=== PATIENT | female | born 1965 | race Caucasian/White ===

== ENCOUNTER → 2016-08-18 | Outpatient (CLI) | payer OTHER ==
[~2016-08-18] MED LIST: AMIT10TA6 PO; AMLO10TA2; ARIP2TAB10 PO; CIPR-225 PO; CYCL10TA9 PO; DCS100C PO; DULO60CA6 PO; ERYT3.5O8 OS; HCT25T PO; HYDR-2890 PO; HYDR-3454 PO; HYDR118S10 PO; HYDR1CAP2 PO; LISI1TAB10 PO; LOSA100T16 PO; MELO-198 PO; METR500T PO; MIRT15TA6 PO; NAPR-243 PO; NF-ESOM40C PO; OMEP-10 PO; OMEP20CA12; ONDA4TAB8 PO; PREG50CA2 PO; PRM25T PO; QUIN10TA PO; RISP1TAB19 PO; SCR1T1 PO; SULF-222 PO; SULF1TAB38 PO; TRAM50TA2 PO; TRAM5POW3 MC; TRM50T PO; flexeril PO
--- OUTSIDE RECORDS SUMMARY | 2016-08-18 11:11 | XMS REPORT | Continuity of Care Document ---
Author Author [facility] Address Unknown Phone Unavailable Allergies Active Description Code Type Severity Reaction Onset Reported/Identified Relationship to Patient Clinical Status Yes Penicillins [id number] Drug Allergy Mild hives 01/28/2009 Yes Penicillins Drug Allergy N/A N/A 03/31/2010 Yes Penicillins Drug Allergy 03/31/2010 Yes antihistamine Drug Allergy 04/22/2011 Yes Depakote 500 mg tablet,delayed release (DR/EC) Drug Allergy N/A N/A 06/26/2012 Yes Depakote 500 mg tablet,delayed release (DR/EC) Drug Allergy 06/26/2012 Medications Problems Date Dx Coded Attending Type Code Diagnosis Diagnosed By 03/31/2010 SURESH ANDRADE APRN S 461.0 Acute Maxillary Sinusitis 03/31/2010 ROWENA ANDRADE APRNA S 461.0 Acute Maxillary Sinusitis 03/31/2010 CATIE ROGERS DO 461.0 Acute Maxillary Sinusitis 03/31/2010 SURESH ANDRADE APRN S 461.0 Acute Maxillary Sinusitis 03/31/2010 461.0 Acute Maxillary Sinusitis 03/31/2010 461.0 Acute Maxillary Sinusitis 03/31/2010 461.0 Acute Maxillary Sinusitis 03/31/2010 461.0 Acute Maxillary Sinusitis 03/31/2010 JOSE ELIAS CORNELIUS APRN 461.0 Acute Maxillary Sinusitis 03/31/2010 MAINOR CONTRERAS APRN 461.0 Acute Maxillary Sinusitis 03/31/2010 SURESH ANDRADE APRN S 461.0 Acute Maxillary Sinusitis 03/31/2010 ROWENA ANDRADE APRNA S 461.0 Acute Maxillary Sinusitis 03/31/2010 ROWENA ANDRADE APRNA S 461.0 Acute Maxillary Sinusitis 03/31/2010 ROWENA ANDRADE APRNA S 461.0 Acute Maxillary Sinusitis 03/31/2010 LUPE INTERDISCIPLINARY PROFESSOR, SURESH S 461.0 Acute Maxillary Sinusitis 03/31/2010 461.0 Acute Maxillary Sinusitis 03/31/2010 OG INTERDISCIPLINARY PROFESSOR, MEGHA 461.0 Acute Maxillary Sinusitis 03/31/2010 LUPE INTERDISCIPLINARY PROFESSOR, SURESH S 461.0 Acute Maxillary Sinusitis 03/31/2010 LUPE INTERDISCIPLINARY PROFESSOR, SURESH S 461.0 Acute Maxillary Sinusitis 03/31/2010 LUPE INTERDISCIPLINARY PROFESSOR, SURESH S 461.0 Acute Maxillary Sinusitis 03/31/2010 [facility], SYBIL R 461.0 Acute Maxillary Sinusitis 03/31/2010 LUPE INTERDISCIPLINARY PROFESSOR, SURESH S 461.0 Acute Maxillary Sinusitis 03/31/2010 LUPE INTERDISCIPLINARY PROFESSOR, SURESH S 461.0 Acute Maxillary Sinusitis 03/31/2010 MAURICE INTERDISCIPLINARY PROFESSOR, JAILENE R 461.0 Acute Maxillary Sinusitis 03/31/2010 PANCHO INTERDISCIPLINARY PROFESSOR, AIRAM A 461.0 Acute Maxillary Sinusitis 03/31/2010 [facility], SYBIL R 461.0 Acute Maxillary [facility]2010 [facility] 461.0 Acute Maxillary Sinusitis 03/31/2010 PANCHO INTERDISCIPLINARY PROFESSOR, AIRAM A 461.0 Acute Maxillary Sinusitis 04/01/2011 LUPE INTERDISCIPLINARY PROFESSOR, SURESH S 401.1 BENIGN ESSENTIAL HYPERTENSION 04/01/2011 LUPE INTERDISCIPLINARY PROFESSOR, SURESH S 455.6 HEMORRHOIDS NOS 04/01/2011 LUPE INTERDISCIPLINARY PROFESSOR, SURESH S 553.9 HERNIA UNSPECIFIED SITE 04/01/2011 LUPE INTERDISCIPLINARY PROFESSOR, SURESH S 564.1 IRRITABLE BOWEL SYNDROME 04/01/2011 LUPE INTERDISCIPLINARY PROFESSOR, SURESH S V04.81 FLU DX (3 YRS AND ABOVE, IM) 04/01/2011 LUPE INTERDISCIPLINARY PROFESSOR, SURESH S 401.1 BENIGN ESSENTIAL HYPERTENSION 04/01/2011 LUPE INTERDISCIPLINARY PROFESSOR, SURESH S 455.6 HEMORRHOIDS NOS 04/01/2011 LUPE INTERDISCIPLINARY PROFESSOR, SURESH S 553.9 HERNIA UNSPECIFIED SITE 04/01/2011 LUPE INTERDISCIPLINARY PROFESSOR, SURESH S 564.1 IRRITABLE BOWEL SYNDROME 04/01/2011 SURESH ANDRADE APRN S V04.81 FLU DX (3 YRS AND ABOVE, IM) 04/01/2011 SONIA ROGERS DOA K 401.1 BENIGN ESSENTIAL HYPERTENSION 04/01/2011 SONIA ROGERS DOA K 455.6 HEMORRHOIDS NOS 04/01/2011 SUE FERNANDO, CATIE K 553.9 HERNIA UNSPECIFIED SITE 04/01/2011 CATIE ROGERS DO K 564.1 IRRITABLE BOWEL SYNDROME 04/01/2011 CATIE ROGERS DO K V04.81 FLU DX (3 YRS AND ABOVE, IM) 04/01/2011 SURESH ANDRADE APRN S 401.1 BENIGN ESSENTIAL HYPERTENSION 04/01/2011 SURESH ANDRADE APRN S 455.6 HEMORRHOIDS NOS 04/01/2011 SURESH ANDRADE APRN S 553.9 HERNIA UNSPECIFIED SITE 04/01/2011 SURESH ANDRADE APRN S 564.1 IRRITABLE BOWEL SYNDROME 04/01/2011 SURESH ANDRADE APRN S V04.81 FLU DX (3 YRS AND ABOVE, IM) 04/01/2011 401.1 BENIGN ESSENTIAL HYPERTENSION 04/01/2011 455.6 HEMORRHOIDS NOS 04/01/2011 553.9 HERNIA UNSPECIFIED SITE 04/01/2011 564.1 IRRITABLE BOWEL SYNDROME 04/01/2011 V04.81 FLU DX (3 YRS AND ABOVE, IM) 04/01/2011 401.1 BENIGN ESSENTIAL HYPERTENSION 04/01/2011 455.6 HEMORRHOIDS NOS 04/01/2011 553.9 HERNIA UNSPECIFIED SITE 04/01/2011 564.1 IRRITABLE BOWEL SYNDROME 04/01/2011 V04.81 FLU DX (3 YRS AND ABOVE, IM) 04/01/2011 401.1 BENIGN ESSENTIAL HYPERTENSION 04/01/2011 455.6 HEMORRHOIDS NOS 04/01/2011 553.9 HERNIA UNSPECIFIED SITE 04/01/2011 564.1 IRRITABLE BOWEL SYNDROME 04/01/2011 V04.81 FLU DX (3 YRS AND ABOVE, IM) 04/01/2011 401.1 BENIGN ESSENTIAL HYPERTENSION 04/01/2011 455.6 HEMORRHOIDS NOS 04/01/2011 553.9 HERNIA UNSPECIFIED SITE 04/01/2011 564.1 IRRITABLE BOWEL SYNDROME 04/01/2011 V04.81 FLU DX (3 YRS AND ABOVE, IM) 04/01/2011 JOSE ELIAS CORNELIUS APRN 401.1 BENIGN ESSENTIAL HYPERTENSION 04/01/2011 JOSE ELIAS CORNELIUS APRN 455.6 HEMORRHOIDS NOS 04/01/2011 JOSE ELIAS CORNELIUS APRN 553.9 HERNIA UNSPECIFIED SITE 04/01/2011 JOSE ELIAS CORNELIUS APRN 564.1 IRRITABLE BOWEL SYNDROME 04/01/2011 JOSE ELIAS CORNELIUS APRN V04.81 FLU DX (3 YRS AND ABOVE, IM) 04/01/2011 BEN MAINOR BROWN T 401.1 BENIGN ESSENTIAL HYPERTENSION 04/01/2011 BEN WOLFMAINOR Hollingsworth T 455.6 HEMORRHOIDS NOS 04/01/2011 BEN INTERDISCIPLINARY PROFESSORMAINOR Hollingsworth T 553.9 HERNIA UNSPECIFIED SITE 04/01/2011 BEN INTERDISCIPLINARY PROFESSORMAINOR Hollingsworth T 564.1 IRRITABLE BOWEL SYNDROME 04/01/2011 MAINOR CONTRERAS APRN T V04.81 FLU DX (3 YRS AND ABOVE, IM) 04/01/2011 MATT ANDRADE APRNNDA S 401.1 BENIGN ESSENTIAL HYPERTENSION 04/01/2011 LUPE BROWN, SURESH S 455.6 HEMORRHOIDS NOS 04/01/2011 LUPE BROWN, SURESH S 553.9 HERNIA UNSPECIFIED SITE 04/01/2011 LUPE BROWN, SURESH S 564.1 IRRITABLE BOWEL SYNDROME 04/01/2011 LUPE BROWN, SURESH S V04.81 FLU DX (3 YRS AND ABOVE, IM) 04/01/2011 LUPE BROWN SURESH S 401.1 BENIGN ESSENTIAL HYPERTENSION 04/01/2011 LUPE WOLFN, SURESH S 455.6 HEMORRHOIDS NOS 04/01/2011 LUPE INTERDISCIPLINARY PROFESSOR, SURESH S 553.9 HERNIA UNSPECIFIED SITE 04/01/2011 LUPE INTERDISCIPLINARY PROFESSOR, SURESH S 564.1 IRRITABLE BOWEL SYNDROME 04/01/2011 LUPE INTERDISCIPLINARY PROFESSOR, SURESH S V04.81 FLU DX (3 YRS AND ABOVE, IM) 04/01/2011 LUPE INTERDISCIPLINARY PROFESSOR, SURESH S 401.1 BENIGN ESSENTIAL HYPERTENSION 04/01/2011 LUPE BROWN, SURESH S 455.6 HEMORRHOIDS NOS 04/01/2011 LUPE BROWN, SURESH S 553.9 HERNIA UNSPECIFIED SITE 04/01/2011 LUPEMARY WOLFDarrick SURESH S 564.1 IRRITABLE BOWEL SYNDROME 04/01/2011 LUPEMARY WOLFDarrick SURESH S V04.81 FLU DX (3 YRS AND ABOVE, IM) 04/01/2011 LUPE INTERDISCIPLINARY PROFESSORMATT HollingsworthNDA S 401.1 BENIGN ESSENTIAL HYPERTENSION 04/01/2011 LUPE INTERDISCIPLINARY PROFESSORMATT HollingsworthNDA S 455.6 HEMORRHOIDS NOS 04/01/2011 LUPE INTERDISCIPLINARY PROFESSORMATT HollingsworthNDA S 553.9 HERNIA UNSPECIFIED SITE 04/01/2011 LUPE INTERDISCIPLINARY PROFESSORMATT HollingsworthNDA S 564.1 IRRITABLE BOWEL SYNDROME 04/01/2011 LUPE INTERDISCIPLINARY PROFESSORMATT HollingsworthNDA S V04.81 FLU DX (3 YRS AND ABOVE, IM) 04/01/2011 LUPE INTERDISCIPLINARY PROFESSORMATT HollingsworthNDA S 401.1 BENIGN ESSENTIAL HYPERTENSION 04/01/2011 MATT ANDRADE APRNNDA S 455.6 HEMORRHOIDS NOS 04/01/2011 LUPE INTERDISCIPLINARY PROFESSORMATT HollingsworthNDA S 553.9 HERNIA UNSPECIFIED SITE 04/01/2011 LUPE INTERDISCIPLINARY PROFESSORMATT HollingsworthNDA S 564.1 IRRITABLE BOWEL SYNDROME 04/01/2011 LUPE INTERDISCIPLINARY PROFESSORMATT HollingsworthNDA S V04.81 FLU DX (3 YRS AND ABOVE, IM) 04/01/2011 401.1 BENIGN ESSENTIAL HYPERTENSION 04/01/2011 455.6 HEMORRHOIDS NOS 04/01/2011 553.9 HERNIA UNSPECIFIED SITE 04/01/2011 564.1 IRRITABLE BOWEL SYNDROME 04/01/2011 V04.81 FLU DX (3 YRS AND ABOVE, IM) 04/01/2011 OG INTERDISCIPLINARY PROFESSOR, MEGHA 401.1 BENIGN ESSENTIAL HYPERTENSION 04/01/2011 OG INTERDISCIPLINARY PROFESSOR, MEGHA 455.6 HEMORRHOIDS NOS 04/01/2011 OG INTERDISCIPLINARY PROFESSOR, MEGHA 553.9 HERNIA UNSPECIFIED SITE 04/01/2011 OG INTERDISCIPLINARY PROFESSOR, MEGHA 564.1 IRRITABLE BOWEL SYNDROME 04/01/2011 OG INTERDISCIPLINARY PROFESSOR, MEGHA V04.81 FLU DX (3 YRS AND ABOVE, IM) 04/01/2011 MATT ANDRADE APRNNDA S 401.1 BENIGN ESSENTIAL HYPERTENSION 04/01/2011 LUPE INTERDISCIPLINARY PROFESSOR, SURESH S 455.6 HEMORRHOIDS NOS 04/01/2011 LUPE INTERDISCIPLINARY PROFESSOR, SURESH S 553.9 HERNIA UNSPECIFIED SITE 04/01/2011 LUPE INTERDISCIPLINARY PROFESSOR, SURESH S 564.1 IRRITABLE BOWEL SYNDROME 04/01/2011 LUPE INTERDISCIPLINARY PROFESSOR, SURESH S V04.81 FLU DX (3 YRS AND ABOVE, IM) 04/01/2011 MATT ANDRADE APRNNDA S 401.1 BENIGN ESSENTIAL HYPERTENSION 04/01/2011 LUPE INTERDISCIPLINARY PROFESSOR, SURESH S 455.6 HEMORRHOIDS NOS 04/01/2011 LUPE INTERDISCIPLINARY PROFESSOR, SURESH S 553.9 HERNIA UNSPECIFIED SITE 04/01/2011 LUPE INTERDISCIPLINARY PROFESSOR, SURESH S 564.1 IRRITABLE BOWEL SYNDROME 04/01/2011 LUPE INTERDISCIPLINARY PROFESSOR, SURESH S V04.81 FLU DX (3 YRS AND ABOVE, IM) 04/01/2011 LUPE BROWN, SURESH S 401.1 BENIGN ESSENTIAL HYPERTENSION 04/01/2011 LUPE BROWN, SURESH S 455.6 HEMORRHOIDS NOS 04/01/2011 LUPE WOLFN, SURESH S 553.9 HERNIA UNSPECIFIED SITE 04/01/2011 LUPE WOLFN, SURESH S 564.1 IRRITABLE BOWEL SYNDROME 04/01/2011 LUPE BROWN, SURESH S V04.81 FLU DX (3 YRS AND ABOVE, IM) 04/01/2011 [facility], SYBIL R 401.1 BENIGN ESSENTIAL HYPERTENSION 04/01/2011 FELICITAS LSCS, SYBIL R 455.6 HEMORRHOIDS NOS 04/01/2011 FELICITAS LSCS, SYBIL R 553.9 HERNIA UNSPECIFIED SITE 04/01/2011 FELICITAS LSCS, SYBIL R 564.1 IRRITABLE BOWEL SYNDROME 04/01/2011 FELICITAS LSCS, SYBIL R V04.81 FLU DX (3 YRS AND ABOVE, IM) 04/01/2011 LUPE WOLFN, SURESH S 401.1 BENIGN ESSENTIAL HYPERTENSION 04/01/2011 LUPE INTERDISCIPLINARY PROFESSOR, SURESH S 455.6 HEMORRHOIDS NOS 04/01/2011 LUPE INTERDISCIPLINARY PROFESSOR, SURESH S 553.9 HERNIA UNSPECIFIED SITE 04/01/2011 LUPE INTERDISCIPLINARY PROFESSOR, SURESH S 564.1 IRRITABLE BOWEL SYNDROME 04/01/2011 LUPE INTERDISCIPLINARY PROFESSOR, SURESH S V04.81 FLU DX (3 YRS AND ABOVE, IM) 04/01/2011 LUPE INTERDISCIPLINARY PROFESSOR, SURESH S 401.1 BENIGN ESSENTIAL HYPERTENSION 04/01/2011 LUPE INTERDISCIPLINARY PROFESSOR, SURESH S 455.6 HEMORRHOIDS NOS 04/01/2011 LUPE INTERDISCIPLINARY PROFESSOR, SURESH S 553.9 HERNIA UNSPECIFIED SITE 04/01/2011 LUPE INTERDISCIPLINARY PROFESSOR, SURESH S 564.1 IRRITABLE BOWEL SYNDROME 04/01/2011 LUPE INTERDISCIPLINARY PROFESSOR, SURESH S V04.81 FLU DX (3 YRS AND ABOVE, IM) 04/01/2011 MAURICE WOLFN JAILENE R 401.1 BENIGN ESSENTIAL HYPERTENSION 04/01/2011 MAURICE INTERDISCIPLINARY PROFESSOR, JAILENE R 455.6 HEMORRHOIDS NOS 04/01/2011 MAURICE WOLFN JAILENE R 553.9 HERNIA UNSPECIFIED SITE 04/01/2011 MAURICE WOLFN JAILENE R 564.1 IRRITABLE BOWEL SYNDROME 04/01/2011 MAURICE INTERDISCIPLINARY PROFESSOR JAILENE R V04.81 FLU DX (3 YRS AND ABOVE, IM) 04/01/2011 PANCHODYLAN WOLFN, AIRAM A 401.1 BENIGN ESSENTIAL HYPERTENSION 04/01/2011 PANCHO WOLFN, AIRAM A 455.6 HEMORRHOIDS NOS 04/01/2011 PANCHO WOLFN, AIRAM A 553.9 HERNIA UNSPECIFIED SITE 04/01/2011 PANCHO WOLFN, AIRAM A 564.1 IRRITABLE BOWEL SYNDROME 04/01/2011 PANCHO WOLFN, AIRAM A V04.81 FLU DX (3 YRS AND ABOVE, IM) 04/01/2011 FELICITAS LSCS, SYBIL R 401.1 BENIGN ESSENTIAL HYPERTENSION 04/01/2011 FELICITAS LSCS, SYBIL R 455.6 HEMORRHOIDS NOS 04/01/2011 EFLICITAS LSCS, SYBIL R 553.9 HERNIA UNSPECIFIED SITE 04/01/2011 FELICITAS LSCS, SYBIL R 564.1 IRRITABLE BOWEL SYNDROME 04/01/2011 FELICITAS LSCS, SYBIL R V04.81 FLU DX (3 YRS AND ABOVE, IM) 04/01/2011 FELICITAS LSCS, SYBIL R 401.1 BENIGN ESSENTIAL HYPERTENSION 04/01/2011 FELICITAS LSCS, SYBIL R 455.6 HEMORRHOIDS NOS 04/01/2011 FELICITAS LSCS, SYBIL R 553.9 HERNIA UNSPECIFIED SITE 04/01/2011 FELICITAS LSCS, SYBIL R 564.1 IRRITABLE BOWEL SYNDROME 04/01/2011 FELICITAS LSCS, SYBIL R V04.81 FLU DX (3 YRS AND ABOVE, IM) 04/01/2011 PANCHO INTERDISCIPLINARY PROFESSOR, AIRAM A 401.1 BENIGN ESSENTIAL HYPERTENSION 04/01/2011 PANCHO INTERDISCIPLINARY PROFESSOR, AIRAM A 455.6 HEMORRHOIDS NOS 04/01/2011 PANCHO INTERDISCIPLINARY PROFESSOR, AIRAM A 553.9 HERNIA UNSPECIFIED SITE 04/01/2011 PANCHO INTERDISCIPLINARY PROFESSOR, AIRAM A 564.1 IRRITABLE BOWEL SYNDROME 04/01/2011 PANCHO INTERDISCIPLINARY PROFESSOR, AIRAM A V04.81 FLU DX (3 YRS AND ABOVE, IM) 04/22/2011 ROWENA ANDRADE APRNA S 789.00 Abdominal Pain Unspecified Site 04/22/2011 ROWENA ANDRADE APRNA S 789.00 Abdominal Pain Unspecified Site 04/22/2011 CATIE ROGERS DO 789.00 Abdominal Pain Unspecified Site 04/22/2011 MATT ANDRADE APRNNDA S 789.00 Abdominal Pain Unspecified Site 04/22/2011 789.00 Abdominal Pain Unspecified Site 04/22/2011 789.00 Abdominal Pain Unspecified Site 04/22/2011 789.00 Abdominal Pain Unspecified Site 04/22/2011 789.00 Abdominal Pain Unspecified Site 04/22/2011 JOSE ELIAS CORNELIUS APRN 789.00 Abdominal Pain Unspecified Site 04/22/2011 MAINOR CONTRERAS APRN 789.00 Abdominal Pain Unspecified Site 04/22/2011 MATT ANDRADE APRNNDA S 789.00 Abdominal Pain Unspecified Site 04/22/2011 MATT ANDRADE APRNNDA S 789.00 Abdominal Pain Unspecified Site 04/22/2011 MATT ANDRADE APRNNDA S 789.00 Abdominal Pain Unspecified Site 04/22/2011 MATT ANDRADE APRNNDA S 789.00 Abdominal Pain Unspecified Site 04/22/2011 AMTT ANDRADE APRNNDA S 789.00 Abdominal Pain Unspecified Site 04/22/2011 789.00 Abdominal Pain Unspecified Site 04/22/2011 OG INTERDISCIPLINARY PROFESSOR MEGHA 789.00 Abdominal Pain Unspecified Site 04/22/2011 LUPE INTERDISCIPLINARY PROFESSOR, SURESH S 789.00 Abdominal Pain Unspecified Site 04/22/2011 LUPE INTERDISCIPLINARY PROFESSOR, SURESH S 789.00 Abdominal Pain Unspecified Site 04/22/2011 LUPE INTERDISCIPLINARY PROFESSOR, SURESH S 789.00 Abdominal Pain Unspecified Site 04/22/2011 [facility], SYBIL R 789.00 Abdominal Pain Unspecified Site 04/22/2011 LUPE INTERDISCIPLINARY PROFESSOR, SURESH S 789.00 Abdominal Pain Unspecified Site 04/22/2011 LUPE INTERDISCIPLINARY PROFESSOR, SURESH S 789.00 Abdominal Pain Unspecified Site 04/22/2011 MAURICE INTERDISCIPLINARY PROFESSOR JAILENE R 789.00 Abdominal Pain Unspecified Site 04/22/2011 PANCHO INTERDISCIPLINARY PROFESSOR, AIRAM A 789.00 Abdominal Pain Unspecified Site 04/22/2011 [facility], SYBIL R 789.00 Abdominal Pain Unspecified Site 04/22/2011 [facility], SYBIL R 789.00 Abdominal Pain Unspecified Site 04/22/2011 PANCHO INTERDISCIPLINARY PROFESSOR, AIRAM A 789.00 Abdominal Pain Unspecified Site 2011 LUPE INTERDISCIPLINARY PROFESSOR, SURESH S 564.00 Constipation 2011 LUPE INTERDISCIPLINARY PROFESSOR, SURESH S 783.21 WEIGHT LOSS 2011 LUPE INTERDISCIPLINARY PROFESSOR, SURESH S 787.01 Nausea With Vomiting 2011 LUPE INTERDISCIPLINARY PROFESSOR, SURESH S 787.91 Diarrhea 2011 LUPE INTERDISCIPLINARY PROFESSOR, SURESH S 789.07 Abdominal Pain Generalized 2011 LUPE INTERDISCIPLINARY PROFESSOR, SURESH S 564.00 Constipation 2011 LUPE INTERDISCIPLINARY PROFESSOR, SURESH S 783.21 WEIGHT LOSS 2011 LUPE INTERDISCIPLINARY PROFESSOR, SURESH S 787.01 Nausea With Vomiting 2011 LUPE INTERDISCIPLINARY PROFESSOR, SURESH S 787.91 Diarrhea 2011 LUPE INTERDISCIPLINARY PROFESSOR, SURESH S 789.07 Abdominal Pain Generalized 2011 ROGERS DO, CATIE K 564.00 Constipation 2011 ROGERS DO, CATIE K 783.21 WEIGHT LOSS 2011 ROGERS DO, CATIE K 787.01 Nausea With Vomiting 2011 ROGERS DO, CATIE K 787.91 Diarrhea 2011 ROGESR DO, CATIE K 789.07 Abdominal Pain Generalized 2011 LUPE BROWN SURESH S 564.00 Constipation 2011 LUPE BROWN SURESH S 783.21 WEIGHT LOSS 2011 LUPE BROWN SURESH S 787.01 Nausea With Vomiting 2011 LUPE BROWN SURESH S 787.91 Diarrhea 2011 LUPE BROWN SURESH S 789.07 Abdominal Pain Generalized 2011 564.00 Constipation 2011 783.21 WEIGHT LOSS 2011 787.01 Nausea With Vomiting 2011 787.91 Diarrhea 2011 789.07 Abdominal Pain Generalized 2011 564.00 Constipation 2011 783.21 WEIGHT LOSS 2011 787.01 Nausea With Vomiting 2011 787.91 Diarrhea 2011 789.07 Abdominal Pain Generalized 2011 564.00 Constipation 2011 783.21 WEIGHT LOSS 2011 787.01 Nausea With Vomiting 2011 787.91 Diarrhea 2011 789.07 Abdominal Pain Generalized 2011 564.00 Constipation 2011 783.21 WEIGHT LOSS 2011 787.01 Nausea With Vomiting 2011 787.91 Diarrhea 2011 789.07 Abdominal Pain Generalized 2011 JOSE ELIAS CORNELIUS APRN 564.00 Constipation 2011 JOSE ELIAS CORNELIUS APRN 783.21 WEIGHT LOSS 2011 JOSE ELIAS CORNELIUS APRN 787.01 Nausea With Vomiting 2011 ASHLI BROWN JOSE ELIAS JAEL 787.91 Diarrhea 2011 ASHLI BROWN JOSE ELIAS JAEL 789.07 Abdominal Pain Generalized 2011 BEN INTERDISCIPLINARY PROFESSOR, MAINOR T 564.00 Constipation 2011 BEN INTERDISCIPLINARY PROFESSOR, MAINOR T 783.21 WEIGHT LOSS 2011 BEN INTERDISCIPLINARY PROFESSOR, MAINOR T 787.01 Nausea With Vomiting 2011 BEN INTERDISCIPLINARY PROFESSOR, MAINOR T 787.91 Diarrhea 2011 BEN INTERDISCIPLINARY PROFESSOR, MAINOR T 789.07 Abdominal Pain Generalized 2011 LUPE INTERDISCIPLINARY PROFESSOR, SURESH S 564.00 Constipation 2011 LUPE INTERDISCIPLINARY PROFESSOR, SURESH S 783.21 WEIGHT LOSS 2011 LUPE INTERDISCIPLINARY PROFESSOR, SURESH S 787.01 Nausea With Vomiting 2011 LUPE INTERDISCIPLINARY PROFESSOR, SURESH S 787.91 Diarrhea 2011 LUPE INTERDISCIPLINARY PROFESSOR, SURESH S 789.07 Abdominal Pain Generalized 2011 LUPE INTERDISCIPLINARY PROFESSOR, SURESH S 564.00 Constipation 2011 LUPE INTERDISCIPLINARY PROFESSOR, SURESH S 783.21 WEIGHT LOSS 2011 LUPE INTERDISCIPLINARY PROFESSOR, SURESH S 787.01 Nausea With Vomiting 2011 LUPE INTERDISCIPLINARY PROFESSOR, SURESH S 787.91 Diarrhea 2011 LUPE INTERDISCIPLINARY PROFESSOR, SURESH S 789.07 Abdominal Pain Generalized 2011 LUPE INTERDISCIPLINARY PROFESSOR, SURESH S 564.00 Constipation 2011 LUPE INTERDISCIPLINARY PROFESSOR, SURESH S 783.21 WEIGHT LOSS 2011 LUPE INTERDISCIPLINARY PROFESSOR, SURESH S 787.01 Nausea With Vomiting 2011 LUPE INTERDISCIPLINARY PROFESSOR, SURESH S 787.91 Diarrhea 2011 LUPE INTERDISCIPLINARY PROFESSOR, SURESH S 789.07 Abdominal Pain Generalized 2011 LUPE INTERDISCIPLINARY PROFESSOR, SURESH S 564.00 Constipation 2011 LUPE INTERDISCIPLINARY PROFESSOR, SURESH S 783.21 WEIGHT LOSS 2011 LUPE INTERDISCIPLINARY PROFESSOR, SURESH S 787.01 Nausea With Vomiting 2011 LUPE INTERDISCIPLINARY PROFESSOR, SURESH S 787.91 Diarrhea 2011 LUPE INTERDISCIPLINARY PROFESSOR, SURESH S 789.07 Abdominal Pain Generalized 2011 LUPE INTERDISCIPLINARY PROFESSOR, SURESH S 564.00 Constipation 2011 LUPE INTERDISCIPLINARY PROFESSOR, SURESH S 783.21 WEIGHT LOSS 2011 LUPE INTERDISCIPLINARY PROFESSOR, SURESH S 787.01 Nausea With Vomiting 2011 LUPE INTERDISCIPLINARY PROFESSOR, SURESH S 787.91 Diarrhea 2011 LUPE INTERDISCIPLINARY PROFESSOR, SURESH S 789.07 Abdominal Pain Generalized 2011 564.00 Constipation 2011 783.21 WEIGHT LOSS 2011 787.01 Nausea With Vomiting 2011 787.91 Diarrhea 2011 789.07 Abdominal Pain Generalized 2011 OG INTERDISCIPLINARY PROFESSOR, MEGHA 564.00 Constipation 2011 OG INTERDISCIPLINARY PROFESSOR, MEGHA 783.21 WEIGHT LOSS 2011 OG INTERDISCIPLINARY PROFESSOR, MEGHA 787.01 Nausea With Vomiting 2011 OG INTERDISCIPLINARY PROFESSOR, MEGHA 787.91 Diarrhea 2011 OG INTERDISCIPLINARY PROFESSOR, MEGHA 789.07 Abdominal Pain Generalized 2011 LUPE INTERDISCIPLINARY PROFESSOR, SURESH S 564.00 Constipation 2011 LUPE INTERDISCIPLINARY PROFESSOR, SURESH S 783.21 WEIGHT LOSS 2011 LUPE INTERDISCIPLINARY PROFESSOR, SURESH S 787.01 Nausea With Vomiting 2011 LUPE INTERDISCIPLINARY PROFESSOR, SURESH S 787.91 Diarrhea 2011 LUPE INTERDISCIPLINARY PROFESSOR, SURESH S 789.07 Abdominal Pain Generalized 2011 LUPE INTERDISCIPLINARY PROFESSOR, SURESH S 564.00 Constipation 2011 LUPE INTERDISCIPLINARY PROFESSOR, SURESH S 783.21 WEIGHT LOSS 2011 LUPE INTERDISCIPLINARY PROFESSOR, SURESH S 787.01 Nausea With Vomiting 2011 LUPE INTERDISCIPLINARY PROFESSOR, SURESH S 787.91 Diarrhea 2011 LUPE INTERDISCIPLINARY PROFESSOR, SURESH S 789.07 Abdominal Pain Generalized 2011 LUPE INTERDISCIPLINARY PROFESSOR, SURESH S 564.00 Constipation 2011 LUPE INTERDISCIPLINARY PROFESSOR, SURESH S 783.21 WEIGHT LOSS 2011 LUPE INTERDISCIPLINARY PROFESSOR, SURESH S 787.01 Nausea With Vomiting 2011 LUPE INTERDISCIPLINARY PROFESSOR, SURESH S 787.91 Diarrhea 2011 LUPE INTERDISCIPLINARY PROFESSOR, SURESH S 789.07 Abdominal Pain Generalized 2011 [facility], SYBIL R 564.00 Constipation 2011 [facility], SYBIL R 783.21 WEIGHT LOSS 2011 [facility], SYBIL R 787.01 Nausea With Vomiting 2011 [facility], SYBIL R 787.91 Diarrhea 2011 [facility], SYBIL R 789.07 Abdominal Pain Generalized 2011 LUPE INTERDISCIPLINARY PROFESSOR, SURESH S 564.00 Constipation 2011 LUPE INTERDISCIPLINARY PROFESSOR, SURESH S 783.21 WEIGHT LOSS 2011 LUPE INTERDISCIPLINARY PROFESSOR, SURESH S 787.01 Nausea With Vomiting 2011 LUPE INTERDISCIPLINARY PROFESSOR, SURESH S 787.91 Diarrhea 2011 LUPE INTERDISCIPLINARY PROFESSOR, SURESH S 789.07 Abdominal Pain Generalized 2011 LUPE INTERDISCIPLINARY PROFESSOR, SURESH S 564.00 Constipation 2011 LUPE INTERDISCIPLINARY PROFESSOR, SURESH S 783.21 WEIGHT LOSS 2011 LUPE INTERDISCIPLINARY PROFESSOR, SURESH S 787.01 Nausea With Vomiting 2011 LUPE BROWN, SURESH S 787.91 Diarrhea 2011 LUPE WOLFN, SURESH S 789.07 Abdominal Pain Generalized 2011 MAURICE INTERDISCIPLINARY PROFESSOR, JAILENE R 564.00 Constipation 2011 MAURICE INTERDISCIPLINARY PROFESSOR, JAILENE R 783.21 WEIGHT LOSS 2011 MAURICE INTERDISCIPLINARY PROFESSOR, JAILENE R 787.01 Nausea With Vomiting 2011 MAURICE INTERDISCIPLINARY PROFESSOR, JAILENE R 787.91 Diarrhea 2011 MAURICE INTERDISCIPLINARY PROFESSOR, JAILENE R 789.07 Abdominal Pain Generalized 2011 PANCHO INTERDISCIPLINARY PROFESSOR, AIRAM A 564.00 Constipation 2011 PANCHO INTERDISCIPLINARY PROFESSOR, AIRAM A 783.21 WEIGHT LOSS 2011 PANCHO INTERDISCIPLINARY PROFESSOR, AIRAM A 787.01 Nausea With Vomiting 2011 PANCHO INTERDISCIPLINARY PROFESSOR, AIRAM A 787.91 Diarrhea 2011 PANCHO INTERDISCIPLINARY PROFESSOR, AIRAM A 789.07 Abdominal Pain Generalized 2011 FELICITAS LSCS, SYBIL R 564.00 Constipation 2011 FELICITAS LSCS, SYBIL R 783.21 WEIGHT LOSS 2011 FELICITAS LSCS, SYBIL R 787.01 Nausea With Vomiting 2011 FELICITAS LSCS, SYBIL R 787.91 Diarrhea 2011 FELICITAS LSCS, SYBIL R 789.07 Abdominal Pain Generalized 2011 FELICITAS LSCS, SYBIL R 564.00 Constipation 2011 FELICITAS LSCS, SYBIL R 783.21 WEIGHT LOSS 2011 FELICITAS LSCS, SYBIL R 787.01 Nausea With Vomiting 2011 FELICITAS LSCS, SYBIL R 787.91 Diarrhea 2011 FELICITAS LSCS, SYBIL R 789.07 Abdominal Pain Generalized 2011 PANCHO INTERDISCIPLINARY PROFESSOR, AIRAM A 564.00 Constipation 2011 PANCHO INTERDISCIPLINARY PROFESSOR, AIRAM A 783.21 WEIGHT LOSS 2011 PANCHO WOLFN, AIRAM A 787.01 Nausea With Vomiting 2011 PANCHO WOLFN, AIRAM A 787.91 Diarrhea 2011 PANCHO INTERDISCIPLINARY PROFESSOR, AIRAM A 789.07 Abdominal Pain Generalized 11/01/2011 SURESH ANDRADE APRN S 211.3 BENIGN NEOPLASM OF COLON 11/01/2011 ROWENA ANDRADE APRNA S 530.81 ESOPHAGEAL REFLUX 11/01/2011 ROWENA ANDRADE APRNA S 531.30 ACUTE GASTRIC ULCER WITHOUT HEMORRHAGE OR PERFORATION WITHOUT OBSTRUCTION 11/01/2011 SURESH ANDRADE APRN S 535.50 Gastritis Unspec 11/01/2011 ROWENA ANDRADE APRNA S 211.3 BENIGN NEOPLASM OF COLON 11/01/2011 ROWENA ANDRADE APRNA S 530.81 ESOPHAGEAL REFLUX 11/01/2011 SURESH ANDRADE APRN S 531.30 ACUTE GASTRIC ULCER WITHOUT HEMORRHAGE OR PERFORATION WITHOUT OBSTRUCTION 11/01/2011 LUPE BROWN SURESH S 535.50 Gastritis Unspec 11/01/2011 SUE DO, CATIE K 211.3 BENIGN NEOPLASM OF COLON 11/01/2011 SUE FERNANDO, CATIE K 530.81 ESOPHAGEAL REFLUX 11/01/2011 ROGERS , CATIE K 531.30 ACUTE GASTRIC ULCER WITHOUT HEMORRHAGE OR PERFORATION WITHOUT OBSTRUCTION 11/01/2011 SUE FERNANDO, CATIE K 535.50 Gastritis Unspec 11/01/2011 MATT ANDRADE APRNNDA S 211.3 BENIGN NEOPLASM OF COLON 11/01/2011 ROWENA ANDRADE APRNA S 530.81 ESOPHAGEAL REFLUX 11/01/2011 LUPE BROWN SURESH S 531.30 ACUTE GASTRIC ULCER WITHOUT HEMORRHAGE OR PERFORATION WITHOUT OBSTRUCTION 11/01/2011 LUPE BROWN SURESH S 535.50 Gastritis Unspec 11/01/2011 211.3 BENIGN NEOPLASM OF COLON 11/01/2011 530.81 ESOPHAGEAL REFLUX 11/01/2011 531.30 ACUTE GASTRIC ULCER WITHOUT HEMORRHAGE OR PERFORATION WITHOUT OBSTRUCTION 11/01/2011 535.50 Gastritis Unspec 11/01/2011 211.3 BENIGN NEOPLASM OF COLON 11/01/2011 530.81 ESOPHAGEAL REFLUX 11/01/2011 531.30 ACUTE GASTRIC ULCER WITHOUT HEMORRHAGE OR PERFORATION WITHOUT OBSTRUCTION 11/01/2011 535.50 Gastritis Unspec 11/01/2011 211.3 BENIGN NEOPLASM OF COLON 11/01/2011 530.81 ESOPHAGEAL REFLUX 11/01/2011 531.30 ACUTE GASTRIC ULCER WITHOUT HEMORRHAGE OR PERFORATION WITHOUT OBSTRUCTION 11/01/2011 535.50 Gastritis Unspec 11/01/2011 211.3 BENIGN NEOPLASM OF COLON 11/01/2011 530.81 ESOPHAGEAL REFLUX 11/01/2011 531.30 ACUTE GASTRIC ULCER WITHOUT HEMORRHAGE OR PERFORATION WITHOUT OBSTRUCTION 11/01/2011 535.50 Gastritis Unspec 11/01/2011 JOSE ELIAS CORNELIUS APRN 211.3 BENIGN NEOPLASM OF COLON 11/01/2011 JOSE ELIAS CORNELIUS APRN 530.81 ESOPHAGEAL REFLUX 11/01/2011 JOSE ELIAS CORNELIUS APRN 531.30 ACUTE GASTRIC ULCER WITHOUT HEMORRHAGE OR PERFORATION WITHOUT OBSTRUCTION 11/01/2011 JOSE ELIAS CORNELIUS APRN 535.50 Gastritis Unspec 11/01/2011 MAINOR CONTRERAS APRN 211.3 BENIGN NEOPLASM OF COLON 11/01/2011 BEN INTERDISCIPLINARY PROFESSOR, MAINOR T 530.81 ESOPHAGEAL REFLUX 11/01/2011 BEN WOLFDarrick MAINOR Mary 531.30 ACUTE GASTRIC ULCER WITHOUT HEMORRHAGE OR PERFORATION WITHOUT OBSTRUCTION 11/01/2011 MAINOR CONTRERAS APRN Tyra 535.50 Gastritis Unspec 11/01/2011 LUPE INTERDISCIPLINARY PROFESSOR, SURESH S 211.3 BENIGN NEOPLASM OF COLON 11/01/2011 LUPE INTERDISCIPLINARY PROFESSOR, SURESH S 530.81 ESOPHAGEAL REFLUX 11/01/2011 LUPE INTERDISCIPLINARY PROFESSOR, SURESH S 531.30 ACUTE GASTRIC ULCER WITHOUT HEMORRHAGE OR PERFORATION WITHOUT OBSTRUCTION 11/01/2011 LUPE INTERDISCIPLINARY PROFESSOR, SURESH S 535.50 Gastritis Unspec 11/01/2011 LUPE INTERDISCIPLINARY PROFESSOR, SURESH S 211.3 BENIGN NEOPLASM OF COLON 11/01/2011 LUPE INTERDISCIPLINARY PROFESSOR, SURESH S 530.81 ESOPHAGEAL REFLUX 11/01/2011 LUPE INTERDISCIPLINARY PROFESSOR, SURESH S 531.30 ACUTE GASTRIC ULCER WITHOUT HEMORRHAGE OR PERFORATION WITHOUT OBSTRUCTION 11/01/2011 LUPE INTERDISCIPLINARY PROFESSOR, SURESH S 535.50 Gastritis Unspec 11/01/2011 LUPE INTERDISCIPLINARY PROFESSOR, SURESH S 211.3 BENIGN NEOPLASM OF COLON 11/01/2011 LUPE INTERDISCIPLINARY PROFESSOR, SURESH S 530.81 ESOPHAGEAL REFLUX 11/01/2011 LUPE INTERDISCIPLINARY PROFESSOR, SURESH S 531.30 ACUTE GASTRIC ULCER WITHOUT HEMORRHAGE OR PERFORATION WITHOUT OBSTRUCTION 11/01/2011 LUPE INTERDISCIPLINARY PROFESSOR, SURESH S 535.50 Gastritis Unspec 11/01/2011 LUPE INTERDISCIPLINARY PROFESSOR, SURESH S 211.3 BENIGN NEOPLASM OF COLON 11/01/2011 LUPE INTERDISCIPLINARY PROFESSOR, SURESH S 530.81 ESOPHAGEAL REFLUX 11/01/2011 LUPE INTERDISCIPLINARY PROFESSOR, SURESH S 531.30 ACUTE GASTRIC ULCER WITHOUT HEMORRHAGE OR PERFORATION WITHOUT OBSTRUCTION 11/01/2011 LUPE INTERDISCIPLINARY PROFESSOR, SURESH S 535.50 Gastritis Unspec 11/01/2011 LUPE INTERDISCIPLINARY PROFESSOR, SURESH S 211.3 BENIGN NEOPLASM OF COLON 11/01/2011 LUPE INTERDISCIPLINARY PROFESSOR, SURESH S 530.81 ESOPHAGEAL REFLUX 11/01/2011 LUPE INTERDISCIPLINARY PROFESSOR, SURESH S 531.30 ACUTE GASTRIC ULCER WITHOUT HEMORRHAGE OR PERFORATION WITHOUT OBSTRUCTION 11/01/2011 LUPE INTERDISCIPLINARY PROFESSOR, SURESH S 535.50 Gastritis Unspec 11/01/2011 211.3 BENIGN NEOPLASM OF COLON 11/01/2011 530.81 ESOPHAGEAL REFLUX 11/01/2011 531.30 ACUTE GASTRIC ULCER WITHOUT HEMORRHAGE OR PERFORATION WITHOUT OBSTRUCTION 11/01/2011 535.50 Gastritis Unspec 11/01/2011 OG INTERDISCIPLINARY PROFESSOR, MEGHA 211.3 BENIGN NEOPLASM OF COLON 11/01/2011 OG INTERDISCIPLINARY PROFESSOR, MEGHA 530.81 ESOPHAGEAL REFLUX 11/01/2011 OG INTERDISCIPLINARY PROFESSOR, MEGHA 531.30 ACUTE GASTRIC ULCER WITHOUT HEMORRHAGE OR PERFORATION WITHOUT OBSTRUCTION 11/01/2011 OG INTERDISCIPLINARY PROFESSOR, MEGHA 535.50 Gastritis Unspec 11/01/2011 LUPE INTERDISCIPLINARY PROFESSOR, SURESH S 211.3 BENIGN NEOPLASM OF COLON 11/01/2011 LUPE INTERDISCIPLINARY PROFESSOR, SURESH S 530.81 ESOPHAGEAL REFLUX 11/01/2011 LUPE INTERDISCIPLINARY PROFESSOR, SURESH S 531.30 ACUTE GASTRIC ULCER WITHOUT HEMORRHAGE OR PERFORATION WITHOUT OBSTRUCTION 11/01/2011 LUPE INTERDISCIPLINARY PROFESSOR, SURESH S 535.50 Gastritis Unspec 11/01/2011 LUPE INTERDISCIPLINARY PROFESSOR, SURESH S 211.3 BENIGN NEOPLASM OF COLON 11/01/2011 LUPE INTERDISCIPLINARY PROFESSOR, SURESH S 530.81 ESOPHAGEAL REFLUX 11/01/2011 LUPE INTERDISCIPLINARY PROFESSOR, SURESH S 531.30 ACUTE GASTRIC ULCER WITHOUT HEMORRHAGE OR PERFORATION WITHOUT OBSTRUCTION 11/01/2011 LUPE INTERDISCIPLINARY PROFESSOR, SURESH S 535.50 Gastritis Unspec 11/01/2011 LUPE INTERDISCIPLINARY PROFESSOR, SURESH S 211.3 BENIGN NEOPLASM OF COLON 11/01/2011 LUPE INTERDISCIPLINARY PROFESSOR, SURESH S 530.81 ESOPHAGEAL REFLUX 11/01/2011 LUPE INTERDISCIPLINARY PROFESSOR, SURESH S 531.30 ACUTE GASTRIC ULCER WITHOUT HEMORRHAGE OR PERFORATION WITHOUT OBSTRUCTION 11/01/2011 LUPE INTERDISCIPLINARY PROFESSOR, SURESH S 535.50 Gastritis Unspec 11/01/2011 [facility], SYBIL R 211.3 BENIGN NEOPLASM OF COLON 11/01/2011 [facility], SYBIL R 530.81 ESOPHAGEAL REFLUX 11/01/2011 [facility] 531.30 ACUTE GASTRIC ULCER WITHOUT HEMORRHAGE OR PERFORATION WITHOUT OBSTRUCTION 11/01/2011 [facility], SYBIL R 535.50 Gastritis Unspec 11/01/2011 LUPE WOLFN, SURESH S 211.3 BENIGN NEOPLASM OF COLON 11/01/2011 LUPE INTERDISCIPLINARY PROFESSOR, SURESH S 530.81 ESOPHAGEAL REFLUX 11/01/2011 LUPE INTERDISCIPLINARY PROFESSOR, SURESH S 531.30 ACUTE GASTRIC ULCER WITHOUT HEMORRHAGE OR PERFORATION WITHOUT OBSTRUCTION 11/01/2011 LUPE INTERDISCIPLINARY PROFESSOR, SURESH S 535.50 Gastritis Unspec 11/01/2011 LUPE INTERDISCIPLINARY PROFESSOR, SURESH S 211.3 BENIGN NEOPLASM OF COLON 11/01/2011 LUPE INTERDISCIPLINARY PROFESSOR, SURESH S 530.81 ESOPHAGEAL REFLUX 11/01/2011 LUPE INTERDISCIPLINARY PROFESSOR, SURESH S 531.30 ACUTE GASTRIC ULCER WITHOUT HEMORRHAGE OR PERFORATION WITHOUT OBSTRUCTION 11/01/2011 LUPE INTERDISCIPLINARY PROFESSOR, SURESH S 535.50 Gastritis Unspec 11/01/2011 MAURICE WOLFN JAILENE R 211.3 BENIGN NEOPLASM OF COLON 11/01/2011 MAURICE WOLFN JAILENE R 530.81 ESOPHAGEAL REFLUX 11/01/2011 MAURICE WOLFN JAILENE R 531.30 ACUTE GASTRIC ULCER WITHOUT HEMORRHAGE OR PERFORATION WITHOUT OBSTRUCTION 11/01/2011 MAURICE BROWN JAILENE R 535.50 Gastritis Unspec 11/01/2011 AIRAM DELEON APRN A 211.3 BENIGN NEOPLASM OF COLON 11/01/2011 NASREEN DELEON APRNIDI A 530.81 ESOPHAGEAL REFLUX 11/01/2011 NASREEN DELEON APRNIDI A 531.30 ACUTE GASTRIC ULCER WITHOUT HEMORRHAGE OR PERFORATION WITHOUT OBSTRUCTION 11/01/2011 NASREEN DELEON APRNIDI A 535.50 Gastritis Unspec 11/01/2011 [facility], SYBIL R 211.3 BENIGN NEOPLASM OF COLON 11/01/2011 [facility], SYBIL R 530.81 ESOPHAGEAL REFLUX 11/01/2011 [facility], SYBIL R 531.30 ACUTE GASTRIC ULCER WITHOUT HEMORRHAGE OR PERFORATION WITHOUT OBSTRUCTION 11/01/2011 FELIC[facility]AS [facility], SYBIL R 535.50 Gastritis Unspec 11/01/2011 [facility], SYBIL R 211.3 BENIGN NEOPLASM OF COLON 11/01/2011 [facility], SYBIL R 530.81 ESOPHAGEAL REFLUX 11/01/2011 [facility], SYBIL R 531.30 ACUTE GASTRIC ULCER WITHOUT HEMORRHAGE OR PERFORATION WITHOUT OBSTRUCTION 11/01/2011 [facility]ELIC[facility]AS [facility], SYBIL R 535.50 Gastritis Unspec 11/01/2011 AIRAM DELEON APRN A 211.3 BENIGN NEOPLASM OF COLON 11/01/2011 AIRAM DELEON APRN A 530.81 ESOPHAGEAL REFLUX 11/01/2011 NASREEN DELEON APRNIDI A 531.30 ACUTE GASTRIC ULCER WITHOUT HEMORRHAGE OR PERFORATION WITHOUT OBSTRUCTION 11/01/2011 NASREEN DELEON APRNIDI A 535.50 Gastritis Unspec 04/24/2012 ROWENA ANDRADE APRNA S 625.9 UNSPECIFIED SYMPTOM ASSOCIATED WITH FEMALE GENITAL ORGANS 04/24/2012 MATT ANDRADE APRNNDA S 719.40 PAIN IN JOINT SITE UNSPECIFIED 04/24/2012 MATT ANDRADE APRNNDA S 780.52 INSOMNIA UNSPECIFIED 04/24/2012 ROWENA ANDRADE APRNA S 625.9 UNSPECIFIED SYMPTOM ASSOCIATED WITH FEMALE GENITAL ORGANS 04/24/2012 ROWENA ANDRADE APRNA S 719.40 PAIN IN JOINT SITE UNSPECIFIED 04/24/2012 MATT ANDRADE APRNNDA S 780.52 INSOMNIA UNSPECIFIED 04/24/2012 ROGERS DO CATIE K 625.9 UNSPECIFIED SYMPTOM ASSOCIATED WITH FEMALE GENITAL ORGANS 04/24/2012 ROGERS DO CATIE K 719.40 PAIN IN JOINT SITE UNSPECIFIED 04/24/2012 ROGERS DO, CATIE K 780.52 INSOMNIA UNSPECIFIED 04/24/2012 ROWENA ANDRADE APRNA S 625.9 UNSPECIFIED SYMPTOM ASSOCIATED WITH FEMALE GENITAL ORGANS 04/24/2012 ROWENA ANDRADE APRNA S 719.40 PAIN IN JOINT SITE UNSPECIFIED 04/24/2012 MATT ANDRADE APRNNDA S 780.52 INSOMNIA UNSPECIFIED 04/24/2012 625.9 UNSPECIFIED SYMPTOM ASSOCIATED WITH FEMALE GENITAL ORGANS 04/24/2012 719.40 PAIN IN JOINT SITE UNSPECIFIED 04/24/2012 780.52 INSOMNIA UNSPECIFIED 04/24/2012 625.9 UNSPECIFIED SYMPTOM ASSOCIATED WITH FEMALE GENITAL ORGANS 04/24/2012 719.40 PAIN IN JOINT SITE UNSPECIFIED 04/24/2012 780.52 INSOMNIA UNSPECIFIED 04/24/2012 625.9 UNSPECIFIED SYMPTOM ASSOCIATED WITH FEMALE GENITAL ORGANS 04/24/2012 719.40 PAIN IN JOINT SITE UNSPECIFIED 04/24/2012 780.52 INSOMNIA UNSPECIFIED 04/24/2012 625.9 UNSPECIFIED SYMPTOM ASSOCIATED WITH FEMALE GENITAL ORGANS 04/24/2012 719.40 PAIN IN JOINT SITE UNSPECIFIED 04/24/2012 780.52 INSOMNIA UNSPECIFIED 04/24/2012 JOSE ELIAS CORNELIUS APRN 625.9 UNSPECIFIED SYMPTOM ASSOCIATED WITH FEMALE GENITAL ORGANS 04/24/2012 JOSE ELIAS CORNELIUS APRN 719.40 PAIN IN JOINT SITE UNSPECIFIED 04/24/2012 JOSE ELIAS CORNELIUS APRN 780.52 INSOMNIA UNSPECIFIED 04/24/2012 BEN MAINOR BROWN T 625.9 UNSPECIFIED SYMPTOM ASSOCIATED WITH FEMALE GENITAL ORGANS 04/24/2012 BEN MAINOR BROWN T 719.40 PAIN IN JOINT SITE UNSPECIFIED 04/24/2012 BEN WOLFMAINOR Hollingsworth T 780.52 INSOMNIA UNSPECIFIED 04/24/2012 LUPE INTERDISCIPLINARY PROFESSOR, SURESH S 625.9 UNSPECIFIED SYMPTOM ASSOCIATED WITH FEMALE GENITAL ORGANS 04/24/2012 LUPE INTERDISCIPLINARY PROFESSOR, SURESH S 719.40 PAIN IN JOINT SITE UNSPECIFIED 04/24/2012 LUPE INTERDISCIPLINARY PROFESSOR, SURESH S 780.52 INSOMNIA UNSPECIFIED 04/24/2012 LUPE INTERDISCIPLINARY PROFESSOR, SURESH S 625.9 UNSPECIFIED SYMPTOM ASSOCIATED WITH FEMALE GENITAL ORGANS 04/24/2012 LUPE INTERDISCIPLINARY PROFESSOR, SURESH S 719.40 PAIN IN JOINT SITE UNSPECIFIED 04/24/2012 LUPE INTERDISCIPLINARY PROFESSOR, SURESH S 780.52 INSOMNIA UNSPECIFIED 04/24/2012 LUPE INTERDISCIPLINARY PROFESSOR, SURESH S 625.9 UNSPECIFIED SYMPTOM ASSOCIATED WITH FEMALE GENITAL ORGANS 04/24/2012 LUPE INTERDISCIPLINARY PROFESSOR, SURESH S 719.40 PAIN IN JOINT SITE UNSPECIFIED 04/24/2012 LUPE INTERDISCIPLINARY PROFESSOR, SURESH S 780.52 INSOMNIA UNSPECIFIED 04/24/2012 LUPE INTERDISCIPLINARY PROFESSOR, SURESH S 625.9 UNSPECIFIED SYMPTOM ASSOCIATED WITH FEMALE GENITAL ORGANS 04/24/2012 LUPE INTERDISCIPLINARY PROFESSOR, SURESH S 719.40 PAIN IN JOINT SITE UNSPECIFIED 04/24/2012 LUPE INTERDISCIPLINARY PROFESSOR, SURESH S 780.52 INSOMNIA UNSPECIFIED 04/24/2012 LUPE INTERDISCIPLINARY PROFESSOR, SURESH S 625.9 UNSPECIFIED SYMPTOM ASSOCIATED WITH FEMALE GENITAL ORGANS 04/24/2012 LUPE INTERDISCIPLINARY PROFESSOR, SURESH S 719.40 PAIN IN JOINT SITE UNSPECIFIED 04/24/2012 LUPE INTERDISCIPLINARY PROFESSOR, SURESH S 780.52 INSOMNIA UNSPECIFIED 04/24/2012 625.9 UNSPECIFIED SYMPTOM ASSOCIATED WITH FEMALE GENITAL ORGANS 04/24/2012 719.40 PAIN IN JOINT SITE UNSPECIFIED 04/24/2012 780.52 INSOMNIA UNSPECIFIED 04/24/2012 OG INTERDISCIPLINARY PROFESSOR, MEGHA 625.9 UNSPECIFIED SYMPTOM ASSOCIATED WITH FEMALE GENITAL ORGANS 04/24/2012 OG INTERDISCIPLINARY PROFESSOR, MEGHA 719.40 PAIN IN JOINT SITE UNSPECIFIED 04/24/2012 OG INTERDISCIPLINARY PROFESSOR, MEGHA 780.52 INSOMNIA UNSPECIFIED 04/24/2012 LUPE INTERDISCIPLINARY PROFESSOR, SURESH S 625.9 UNSPECIFIED SYMPTOM ASSOCIATED WITH FEMALE GENITAL ORGANS 04/24/2012 LUPE INTERDISCIPLINARY PROFESSOR, SURESH S 719.40 PAIN IN JOINT SITE UNSPECIFIED 04/24/2012 LUPE INTERDISCIPLINARY PROFESSOR, SURESH S 780.52 INSOMNIA UNSPECIFIED 04/24/2012 LUPE INTERDISCIPLINARY PROFESSOR, SURESH S 625.9 UNSPECIFIED SYMPTOM ASSOCIATED WITH FEMALE GENITAL ORGANS 04/24/2012 LUPE INTERDISCIPLINARY PROFESSOR, SURESH S 719.40 PAIN IN JOINT SITE UNSPECIFIED 04/24/2012 LUPE INTERDISCIPLINARY PROFESSOR, SURESH S 780.52 INSOMNIA UNSPECIFIED 04/24/2012 LUPE INTERDISCIPLINARY PROFESSOR, SURESH S 625.9 UNSPECIFIED SYMPTOM ASSOCIATED WITH FEMALE GENITAL ORGANS 04/24/2012 LUPE INTERDISCIPLINARY PROFESSOR, SURESH S 719.40 PAIN IN JOINT SITE UNSPECIFIED 04/24/2012 LUPE INTERDISCIPLINARY PROFESSOR, SURESH S 780.52 INSOMNIA UNSPECIFIED 04/24/2012 [facility], SYBIL R 625.9 UNSPECIFIED SYMPTOM ASSOCIATED WITH FEMALE GENITAL ORGANS 04/24/2012 [facility], SYBIL R 719.40 PAIN IN JOINT SITE UNSPECIFIED 04/24/2012 [facility], SYBIL R 780.52 INSOMNIA UNSPECIFIED 04/24/2012 LUPE INTERDISCIPLINARY PROFESSOR, SURESH S 625.9 UNSPECIFIED SYMPTOM ASSOCIATED WITH FEMALE GENITAL ORGANS 04/24/2012 LUPE INTERDISCIPLINARY PROFESSOR, SURESH S 719.40 PAIN IN JOINT SITE UNSPECIFIED 04/24/2012 LUPE INTERDISCIPLINARY PROFESSOR, SURESH S 780.52 INSOMNIA UNSPECIFIED 04/24/2012 LUPE INTERDISCIPLINARY PROFESSOR, SURESH S 625.9 UNSPECIFIED SYMPTOM ASSOCIATED WITH FEMALE GENITAL ORGANS 04/24/2012 LUPE INTERDISCIPLINARY PROFESSOR, SURESH S 719.40 PAIN IN JOINT SITE UNSPECIFIED 04/24/2012 SURESH ANDRADE APRN S 780.52 INSOMNIA UNSPECIFIED 04/24/2012 MAURICE INTERDISCIPLINARY PROFESSOR, JAILENE R 625.9 UNSPECIFIED SYMPTOM ASSOCIATED WITH FEMALE GENITAL ORGANS 04/24/2012 MAURICE WOLFN JAILENE R 719.40 PAIN IN JOINT SITE UNSPECIFIED 04/24/2012 MAURICE BROWN JAILENE R 780.52 INSOMNIA UNSPECIFIED 04/24/2012 PANCHO INTERDISCIPLINARY PROFESSOR, AIRAM A 625.9 UNSPECIFIED SYMPTOM ASSOCIATED WITH FEMALE GENITAL ORGANS 04/24/2012 PANCHO INTERDISCIPLINARY PROFESSOR, AIRAM A 719.40 PAIN IN JOINT SITE UNSPECIFIED 04/24/2012 PANCHO INTERDISCIPLINARY PROFESSOR, AIRAM A 780.52 INSOMNIA UNSPECIFIED 04/24/2012 [facility], SYBIL R 625.9 UNSPECIFIED SYMPTOM ASSOCIATED WITH FEMALE GENITAL ORGANS 04/24/2012 [facility]ELICITAS [facility], SYBIL R 719.40 PAIN IN JOINT SITE UNSPECIFIED 04/24/2012 FELICITAS LSC[facility], SYBIL R 780.52 INSOMNIA UNSPECIFIED 04/24/2012 FELICITAS LSC[facility], SYBIL R 625.9 UNSPECIFIED SYMPTOM ASSOCIATED WITH FEMALE GENITAL ORGANS 04/24/2012 FELICITAS LSCS, SYIBL R 719.40 PAIN IN JOINT SITE UNSPECIFIED 04/24/2012 FELICITAS LSCS, SYBIL R 780.52 INSOMNIA UNSPECIFIED 04/24/2012 PANCHO APRN, AIRAM A 625.9 UNSPECIFIED SYMPTOM ASSOCIATED WITH FEMALE GENITAL ORGANS 04/24/2012 PANCHO INTERDISCIPLINARY PROFESSOR, AIRAM A 719.40 PAIN IN JOINT SITE UNSPECIFIED 04/24/2012 PANCHO APRN, AIRAM A 780.52 INSOMNIA UNSPECIFIED 05/02/2012 SURESH ANDRADE APRN S V76.10 BREAST CANCER SCREENING 05/02/2012 SURESH ANDRADE APRN S V76.2 CERVICAL CANCER SCREENING (PAP SMEAR) 05/02/2012 SURESH ANDRADE APRN S V76.10 BREAST CANCER SCREENING 05/02/2012 SURESH ANDRADE APRN S V76.2 CERVICAL CANCER SCREENING (PAP SMEAR) 05/02/2012 CATIE ROGERS DO V76.10 BREAST CANCER SCREENING 05/02/2012 CATIE ROGERS DO V76.2 CERVICAL CANCER SCREENING (PAP SMEAR) 05/02/2012 SURESH ANDRADE APRN S V76.10 BREAST CANCER SCREENING 05/02/2012 MATT ANDRADE APRNNDA S V76.2 CERVICAL CANCER SCREENING (PAP SMEAR) 05/02/2012 V76.10 BREAST CANCER SCREENING 05/02/2012 V76.2 CERVICAL CANCER SCREENING (PAP SMEAR) 05/02/2012 V76.10 BREAST CANCER SCREENING 05/02/2012 V76.2 CERVICAL CANCER SCREENING (PAP SMEAR) 05/02/2012 V76.10 BREAST CANCER SCREENING 05/02/2012 V76.2 CERVICAL CANCER SCREENING (PAP SMEAR) 05/02/2012 V76.10 BREAST CANCER SCREENING 05/02/2012 V76.2 CERVICAL CANCER SCREENING (PAP SMEAR) 05/02/2012 JOSE ELIAS CORNELIUS APRN V76.10 BREAST CANCER SCREENING 05/02/2012 JOSE ELIAS CORNELIUS APRN V76.2 CERVICAL CANCER SCREENING (PAP SMEAR) 05/02/2012 MAINOR CONTRERAS APRN V76.10 BREAST CANCER SCREENING 05/02/2012 MAINOR CONTRERAS APRN V76.2 CERVICAL CANCER SCREENING (PAP SMEAR) 05/02/2012 MATT ANDRADE APRNNDA S V76.10 BREAST CANCER SCREENING 05/02/2012 MATT ANDRADE APRNNDA S V76.2 CERVICAL CANCER SCREENING (PAP SMEAR) 05/02/2012 MATT ANDRADE APRNNDA S V76.10 BREAST CANCER SCREENING 05/02/2012 MATT ANDRADE APRNNDA S V76.2 CERVICAL CANCER SCREENING (PAP SMEAR) 05/02/2012 MATT ANDRADE APRNNDA S V76.10 BREAST CANCER SCREENING 05/02/2012 MATT ANDRADE APRNNDA S V76.2 CERVICAL CANCER SCREENING (PAP SMEAR) 05/02/2012 LUPE BROWN SURESH S V76.10 BREAST CANCER SCREENING 05/02/2012 LUPE BROWN, SURESH S V76.2 CERVICAL CANCER SCREENING (PAP SMEAR) 05/02/2012 MATT ANDRADE APRNNDA S V76.10 BREAST CANCER SCREENING 05/02/2012 LUPE BROWN SURESH S V76.2 CERVICAL CANCER SCREENING (PAP SMEAR) 05/02/2012 V76.10 BREAST CANCER SCREENING 05/02/2012 V76.2 CERVICAL CANCER SCREENING (PAP SMEAR) 05/02/2012 OG INTERDISCIPLINARY PROFESSOR, MEGHA V76.10 BREAST CANCER SCREENING 05/02/2012 OG INTERDISCIPLINARY PROFESSOR, MEGHA V76.2 CERVICAL CANCER SCREENING (PAP SMEAR) 05/02/2012 LUPE BROWN SURESH S V76.10 BREAST CANCER SCREENING 05/02/2012 LUPE BROWN SURESH S V76.2 CERVICAL CANCER SCREENING (PAP SMEAR) 05/02/2012 LUPE BROWN SURESH S V76.10 BREAST CANCER SCREENING 05/02/2012 LUPE BROWN SURESH S V76.2 CERVICAL CANCER SCREENING (PAP SMEAR) 05/02/2012 LUPE BROWN SURESH S V76.10 BREAST CANCER SCREENING 05/02/2012 LUPE BROWN SURESH S V76.2 CERVICAL CANCER SCREENING (PAP SMEAR) 05/02/2012 [facility], SYBIL R V76.10 BREAST CANCER SCREENING 05/02/2012 [facility], SYBIL R V76.2 CERVICAL CANCER SCREENING (PAP SMEAR) 05/02/2012 LUPE BROWN SURESH S V76.10 BREAST CANCER SCREENING 05/02/2012 MATT ANDRADE APRNNDA S V76.2 CERVICAL CANCER SCREENING (PAP SMEAR) 05/02/2012 MATT ANDRADE APRNNDA S V76.10 BREAST CANCER SCREENING 05/02/2012 LUPE BROWN SURESH S V76.2 CERVICAL CANCER SCREENING (PAP SMEAR) 05/02/2012 MAURICE BROWN JAILENE R V76.10 BREAST CANCER SCREENING 05/02/2012 MAURICE BROWN JAILENE R V76.2 CERVICAL CANCER SCREENING (PAP SMEAR) 05/02/2012 PANCHO BROWN AIRAM A V76.10 BREAST CANCER SCREENING 05/02/2012 PANCHO BROWN AIRAM A V76.2 CERVICAL CANCER SCREENING (PAP SMEAR) 05/02/2012 [facility], SYBIL R V76.10 BREAST CANCER SCREENING 05/02/2012 [facility], SYBIL R V76.2 CERVICAL CANCER SCREENING (PAP SMEAR) 05/02/2012 [facility], SYBIL R V76.10 BREAST CANCER SCREENING 05/02/2012 [facility], SYBIL R V76.2 CERVICAL CANCER SCREENING (PAP SMEAR) 05/02/2012 AIRAM DELEON APRN A V76.10 BREAST CANCER SCREENING 05/02/2012 AIRAM DELEON APRN A V76.2 CERVICAL CANCER SCREENING (PAP SMEAR) 05/16/2012 MATT ANDRADE APRNNDA S 338.29 PAIN - CHRONIC 05/16/2012 MATT ANDRADE APRNNDA S 345.90 SEIZURE DISORDER 05/16/2012 MATT ANDRADE APRNNDA S 338.29 PAIN - CHRONIC 05/16/2012 MATT ANDRADE APRNNDA S 345.90 SEIZURE DISORDER 05/16/2012 ROGERS DO CATIE K 338.29 PAIN - CHRONIC 05/16/2012 ROGERS DO, CATIE K 345.90 SEIZURE DISORDER 05/16/2012 MATT ANDRADE APRNNDA S 338.29 PAIN - CHRONIC 05/16/2012 MATT ANDRADE APRNNDA S 345.90 SEIZURE DISORDER 05/16/2012 338.29 PAIN - CHRONIC 05/16/2012 345.90 SEIZURE DISORDER 05/16/2012 338.29 PAIN - CHRONIC 05/16/2012 345.90 SEIZURE DISORDER 05/16/2012 338.29 PAIN - CHRONIC 05/16/2012 345.90 SEIZURE DISORDER 05/16/2012 338.29 PAIN - CHRONIC 05/16/2012 345.90 SEIZURE DISORDER 05/16/2012 ASHLI BROWN JOSE ELIAS ELDER 338.29 PAIN - CHRONIC 05/16/2012 ASHLI BROWN JOSE ELIAS ELDER 345.90 SEIZURE DISORDER 05/16/2012 MAINOR CONTRERAS APRN 338.29 PAIN - CHRONIC 05/16/2012 MAINOR CONTRERAS APRN 345.90 SEIZURE DISORDER 05/16/2012 MATT ANDRADE APRNNDA S 338.29 PAIN - CHRONIC 05/16/2012 MATT ANDRADE APRNNDA S 345.90 SEIZURE DISORDER 05/16/2012 MATT ANDRADE APRNNDA S 338.29 PAIN - CHRONIC 05/16/2012 MATT ANDRADE APRNNDA S 345.90 SEIZURE DISORDER 05/16/2012 MATT ANDRADE APRNNDA S 338.29 PAIN - CHRONIC 05/16/2012 MATT ANDRADE APRNNDA S 345.90 SEIZURE DISORDER 05/16/2012 MATT ANDRADE APRNNDA S 338.29 PAIN - CHRONIC 05/16/2012 LUPE INTERDISCIPLINARY PROFESSOR, SURESH S 345.90 SEIZURE DISORDER 05/16/2012 LUPE INTERDISCIPLINARY PROFESSOR, SURESH S 338.29 PAIN - CHRONIC 05/16/2012 LUPE INTERDISCIPLINARY PROFESSOR, SURESH S 345.90 SEIZURE DISORDER 05/16/2012 338.29 PAIN - CHRONIC 05/16/2012 345.90 SEIZURE DISORDER 05/16/2012 OG INTERDISCIPLINARY PROFESSOR, MEGHA 338.29 PAIN - CHRONIC 05/16/2012 OG INTERDISCIPLINARY PROFESSOR, MEGHA 345.90 SEIZURE DISORDER 05/16/2012 LUPE [employer] PROFESS[employer], SURESH S 338.29 PAIN - CHRONIC 05/16/2012 LUPE INTERDISCIPLINARY PROFESSOR, SURESH S 345.90 SEIZURE DISORDER 05/16/2012 LUPE INTER[employer]CIPLINARY PROFESSOR, SURESH S 338.29 PAIN - CHRONIC 05/16/2012 LUPE INTERDISCIPLINARY PROFESSOR, SURESH S 345.90 SEIZURE DISORDER 05/16/2012 LUPE INTER[employer]CIPLINARY PROFESSOR, SURESH S 338.29 PAIN - CHRONIC 05/16/2012 LUPE BROWN, SURESH S 345.90 SEIZURE DISORDER 05/16/2012 [facility], SYBIL R 338.29 PAIN - CHRONIC 05/16/2012 [facility], SYBIL R 345.90 SEIZURE DISORDER 05/16/2012 LUPE WOLFN, SURESH S 338.29 PAIN - CHRONIC 05/16/2012 LUPE [employer]CIPLIN[employer] PROFESSOR, SURESH S 345.90 SEIZURE DISORDER 05/16/2012 LUPE WOLFN, SURESH S 338.29 PAIN - CHRONIC 05/16/2012 LUPE BROWN SURESH S 345.90 SEIZURE DISORDER 05/16/2012 MAURICE [employer] PROFESSOR, JAILENE R 338.29 PAIN - CHRONIC 05/16/2012 MAURICE INTERDISCIPLINARY PROFESSOR, JAILENE R 345.90 SEIZURE DISORDER 05/16/2012 PANCHO INTERDISCIPLINARY PROFESSOR, AIRAM A 338.29 PAIN - CHRONIC 05/16/2012 PANCHO APRN, AIRAM A 345.90 SEIZURE DISORDER 05/16/2012 [facility], SYBIL R 338.29 PAIN - CHRONIC 05/16/2012 [facility], SYBIL R 345.90 SEIZURE DISORDER 05/16/2012 [facility], SYBIL R 338.29 PAIN - CHRONIC 05/16/2012 [facility], SYBIL R 345.90 SEIZURE DISORDER 05/16/2012 NASREEN DELEON APRNIDI A 338.29 PAIN - CHRONIC 05/16/2012 NASREEN DELEON APRNIDI A 345.90 SEIZURE DISORDER 08/05/2012 SUE FERNANDOSONIAA K 305.20 NONDEPENDENT CANNABIS ABUSE UNSPECIFIED USE 08/05/2012 CATIE ROGERS DO K 461.9 SINUSITIS ACUTE 08/05/2012 MATT ANDRADE APRNNDA S 305.20 NONDEPENDENT CANNABIS ABUSE UNSPECIFIED USE 08/05/2012 MATT ANDRADE APRNNDA S 461.9 SINUSITIS ACUTE 08/05/2012 305.20 NONDEPENDENT CANNABIS ABUSE UNSPECIFIED USE 08/05/2012 461.9 SINUSITIS ACUTE 08/05/2012 305.20 NONDEPENDENT CANNABIS ABUSE UNSPECIFIED USE 08/05/2012 461.9 SINUSITIS ACUTE 08/05/2012 305.20 NONDEPENDENT CANNABIS ABUSE UNSPECIFIED USE 08/05/2012 461.9 SINUSITIS ACUTE 08/05/2012 305.20 NONDEPENDENT CANNABIS ABUSE UNSPECIFIED USE 08/05/2012 461.9 SINUSITIS ACUTE 08/05/2012 JOSE ELIAS CORNELIUS APRN 305.20 NONDEPENDENT CANNABIS ABUSE UNSPECIFIED USE 08/05/2012 JOSE ELIAS CORNELIUS APRN 461.9 SINUSITIS ACUTE 08/05/2012 MAINOR CONTRERAS APRN 305.20 NONDEPENDENT CANNABIS ABUSE UNSPECIFIED USE 08/05/2012 MAINOR CONTRERAS APRN 461.9 SINUSITIS ACUTE 08/05/2012 ROWENA ANDRADE APRNA S 305.20 NONDEPENDENT CANNABIS ABUSE UNSPECIFIED USE 08/05/2012 MATT ANDRADE APRNNDA S 461.9 SINUSITIS ACUTE 08/05/2012 MATT ANDRADE APRNNDA S 305.20 NONDEPENDENT CANNABIS ABUSE UNSPECIFIED USE 08/05/2012 MATT ANDRADE APRNNDA S 461.9 SINUSITIS ACUTE 08/05/2012 MATT ANDRADE APRNNDA S 305.20 NONDEPENDENT CANNABIS ABUSE UNSPECIFIED USE 08/05/2012 MATT ANDRADE APRNNDA S 461.9 SINUSITIS ACUTE 08/05/2012 MATT ANDRADE APRNNDA S 305.20 NONDEPENDENT CANNABIS ABUSE UNSPECIFIED USE 08/05/2012 MATT ANDRADE APRNNDA S 461.9 SINUSITIS ACUTE 08/05/2012 MATT ANDRADE APRNNDA S 305.20 NONDEPENDENT CANNABIS ABUSE UNSPECIFIED USE 08/05/2012 MATT ANDRADE APRNNDA S 461.9 SINUSITIS ACUTE 08/05/2012 305.20 NONDEPENDENT CANNABIS ABUSE UNSPECIFIED USE 08/05/2012 461.9 SINUSITIS ACUTE 08/05/2012 OG INTERDISCIPLINARY PROFESSOR MEGHA 305.20 NONDEPENDENT CANNABIS ABUSE UNSPECIFIED USE 08/05/2012 OG INTERDISCIPLINARY PROFESSOR, MEGHA 461.9 SINUSITIS ACUTE 08/05/2012 MATT ANDRADE APRNNDA S 305.20 NONDEPENDENT CANNABIS ABUSE UNSPECIFIED USE 08/05/2012 MATT ANDRADE APRNNDA S 461.9 SINUSITIS ACUTE 08/05/2012 MATT ANDRADE APRNNDA S 305.20 NONDEPENDENT CANNABIS ABUSE UNSPECIFIED USE 08/05/2012 MATT ANDRADE APRNNDA S 461.9 SINUSITIS ACUTE 08/05/2012 MATT ANDRADE APRNNDA S 305.20 NONDEPENDENT CANNABIS ABUSE UNSPECIFIED USE 08/05/2012 MATT ANDRADE APRNNDA S 461.9 SINUSITIS ACUTE 08/05/2012 [facility], SYBIL R 305.20 NONDEPENDENT CANNABIS ABUSE UNSPECIFIED USE 08/05/2012 [facility], SYBIL R 461.9 SINUSITIS ACUTE 08/05/2012 MATT ANDRADE APRNNDA S 305.20 NONDEPENDENT CANNABIS ABUSE UNSPECIFIED USE 08/05/2012 MATT ANDRADE APRNNDA S 461.9 SINUSITIS ACUTE 08/05/2012 MATT ANDRADE APRNNDA S 305.20 NONDEPENDENT CANNABIS ABUSE UNSPECIFIED USE 08/05/2012 LUPE BROWN SURESH S 461.9 SINUSITIS ACUTE 08/05/2012 MAURICE INTERDISCIPLINARY PROFESSOR, JAILENE R 305.20 NONDEPENDENT CANNABIS ABUSE UNSPECIFIED USE 08/05/2012 MAURICE INTERDISCIPLINARY PROFESSOR, JAILENE R 461.9 SINUSITIS ACUTE 08/05/2012 PANCHO INTERDISCIPLINARY PROFESSOR, AIRAM A 305.20 NONDEPENDENT CANNABIS ABUSE UNSPECIFIED USE 08/05/2012 PANCHO INTERDISCIPLINARY PROFESSOR, AIRAM A 461.9 SINUSITIS ACUTE 08/05/2012 [facility], SYBIL R 305.20 NONDEPENDENT CANNABIS ABUSE UNSPECIFIED USE 08/05/2012 [facility], SYBIL R 461.9 SINUSITIS ACUTE 08/05/2012 [facility], SYBIL R 305.20 NONDEPENDENT CANNABIS ABUSE UNSPECIFIED USE 08/05/2012 [facility], SYBIL R 461.9 SINUSITIS ACUTE 08/05/2012 PANCHO INTERDISCIPLINARY PROFESSOR, AIRAM A 305.20 NONDEPENDENT CANNABIS ABUSE UNSPECIFIED USE 08/05/2012 PANCHO INTERDISCIPLINARY PROFESSOR, AIRAM A 461.9 SINUSITIS ACUTE 09/16/2012 SURESH ANDRADE APRN S 305.50 NONDEPENDENT OPIOID ABUSE UNSPECIFIED USE 09/16/2012 SURESH ANDRADE APRN S 311 DEPRESSIVE DISORDER NOS 09/16/2012 SURESH ANDRADE APRN S 562.11 DIVERTICULITIS OF COLON (WITHOUT HEMORRHAGE) 09/16/2012 SURESH ANDRADE APRN S 719.46 PAIN- KNEE 09/16/2012 305.50 NONDEPENDENT OPIOID ABUSE UNSPECIFIED USE 09/16/2012 311 DEPRESSIVE DISORDER NOS 09/16/2012 562.11 DIVERTICULITIS OF COLON (WITHOUT HEMORRHAGE) 09/16/2012 719.46 PAIN- KNEE 09/16/2012 305.50 NONDEPENDENT OPIOID ABUSE UNSPECIFIED USE 09/16/2012 311 DEPRESSIVE DISORDER NOS 09/16/2012 562.11 DIVERTICULITIS OF COLON (WITHOUT HEMORRHAGE) 09/16/2012 719.46 PAIN- KNEE 09/16/2012 305.50 NONDEPENDENT OPIOID ABUSE UNSPECIFIED USE 09/16/2012 311 DEPRESSIVE DISORDER NOS 09/16/2012 562.11 DIVERTICULITIS OF COLON (WITHOUT HEMORRHAGE) 09/16/2012 719.46 PAIN- KNEE 09/16/2012 305.50 NONDEPENDENT OPIOID ABUSE UNSPECIFIED USE 09/16/2012 311 DEPRESSIVE DISORDER NOS 09/16/2012 562.11 DIVERTICULITIS OF COLON (WITHOUT HEMORRHAGE) 09/16/2012 719.46 PAIN- KNEE 09/16/2012 JOSE ELIAS CORNELIUS APRN 305.50 NONDEPENDENT OPIOID ABUSE UNSPECIFIED USE 09/16/2012 JOSE ELIAS CORNELIUS APRN 311 DEPRESSIVE DISORDER NOS 09/16/2012 JOSE ELIAS CORNELIUS APRN 562.11 DIVERTICULITIS OF COLON (WITHOUT HEMORRHAGE) 09/16/2012 CORNELIUS STEPHANIE JOSE ELIAS ELDER 719.46 PAIN- KNEE 09/16/2012 MAINOR CONTRERAS APRN T 305.50 NONDEPENDENT OPIOID ABUSE UNSPECIFIED USE 09/16/2012 MAINOR CONTRERAS APRN T 311 DEPRESSIVE DISORDER NOS 09/16/2012 MAINOR CONTRERAS APRN T 562.11 DIVERTICULITIS OF COLON (WITHOUT HEMORRHAGE) 09/16/2012 MAINOR CONTRERAS APRN 719.46 PAIN- KNEE 09/16/2012 LUPE INTERDISCIPLINARY PROFESSOR SURESH S 305.50 NONDEPENDENT OPIOID ABUSE UNSPECIFIED USE 09/16/2012 LUPE WOLFN, SURESH S 311 DEPRESSIVE DISORDER NOS 09/16/2012 LUPE BROWN SURESH S 562.11 DIVERTICULITIS OF COLON (WITHOUT HEMORRHAGE) 09/16/2012 LUPE INTERDISCIPLINARY PROFESSOR, SURESH S 719.46 PAIN- KNEE 09/16/2012 LUPE INTERDISCIPLINARY PROFESSOR, SURESH S 305.50 NONDEPENDENT OPIOID ABUSE UNSPECIFIED USE 09/16/2012 LUPE INTERDISCIPLINARY PROFESSOR, SURESH S 311 DEPRESSIVE DISORDER NOS 09/16/2012 LUPE INTERDISCIPLINARY PROFESSOR, SURESH S 562.11 DIVERTICULITIS OF COLON (WITHOUT HEMORRHAGE) 09/16/2012 LUPE INTERDISCIPLINARY PROFESSOR, SURESH S 719.46 PAIN- KNEE 09/16/2012 LUPE INTERDISCIPLINARY PROFESSOR, SURESH S 305.50 NONDEPENDENT OPIOID ABUSE UNSPECIFIED USE 09/16/2012 LUPE INTERDISCIPLINARY PROFESSOR SURESH S 311 DEPRESSIVE DISORDER NOS 09/16/2012 LUPE INTERDISCIPLINARY PROFESSOR, SURESH S 562.11 DIVERTICULITIS OF COLON (WITHOUT HEMORRHAGE) 09/16/2012 LUPE INTERDISCIPLINARY PROFESSOR, SURESH S 719.46 PAIN- KNEE 09/16/2012 LUPE INTERDISCIPLINARY PROFESSOR, SURESH S 305.50 NONDEPENDENT OPIOID ABUSE UNSPECIFIED USE 09/16/2012 LUPE INTERDISCIPLINARY PROFESSOR, SURESH S 311 DEPRESSIVE DISORDER NOS 09/16/2012 LUPE INTERDISCIPLINARY PROFESSOR, SURESH S 562.11 DIVERTICULITIS OF COLON (WITHOUT HEMORRHAGE) 09/16/2012 LUPE INTERDISCIPLINARY PROFESSOR, SURESH S 719.46 PAIN- KNEE 09/16/2012 LUPE INTERDISCIPLINARY PROFESSOR SURESH S 305.50 NONDEPENDENT OPIOID ABUSE UNSPECIFIED USE 09/16/2012 LUPE INTERDISCIPLINARY PROFESSOR, SURESH S 311 DEPRESSIVE DISORDER NOS 09/16/2012 LUPE INTERDISCIPLINARY PROFESSOR, SURESH S 562.11 DIVERTICULITIS OF COLON (WITHOUT HEMORRHAGE) 09/16/2012 LUPE INTERDISCIPLINARY PROFESSOR, SURESH S 719.46 PAIN- KNEE 09/16/2012 305.50 NONDEPENDENT OPIOID ABUSE UNSPECIFIED USE 09/16/2012 311 DEPRESSIVE DISORDER NOS 09/16/2012 562.11 DIVERTICULITIS OF COLON (WITHOUT HEMORRHAGE) 09/16/2012 719.46 PAIN- KNEE 09/16/2012 OG INTERDISCIPLINARY PROFESSOR MEGHA 305.50 NONDEPENDENT OPIOID ABUSE UNSPECIFIED USE 09/16/2012 OG INTERDISCIPLINARY PROFESSOR, MEGHA 311 DEPRESSIVE DISORDER NOS 09/16/2012 OG INTERDISCIPLINARY PROFESSOR, MEHGA 562.11 DIVERTICULITIS OF COLON (WITHOUT HEMORRHAGE) 09/16/2012 OG INTERDISCIPLINARY PROFESSOR, MEGHA 719.46 PAIN- KNEE 09/16/2012 LUPE WOLFNMATTSURESH S 305.50 NONDEPENDENT OPIOID ABUSE UNSPECIFIED USE 09/16/2012 LUPE INTERDISCIPLINARY PROFESSORMATTSURESH S 311 DEPRESSIVE DISORDER NOS 09/16/2012 LUPE INTERDISCIPLINARY PROFESSOR, SURESH S 562.11 DIVERTICULITIS OF COLON (WITHOUT HEMORRHAGE) 09/16/2012 LUPE INTERDISCIPLINARY PROFESSOR, SURESH S 719.46 PAIN- KNEE 09/16/2012 LUPE INTERDISCIPLINARY PROFESSOR, SURESH S 305.50 NONDEPENDENT OPIOID ABUSE UNSPECIFIED USE 09/16/2012 LUPE WOLFN SURESH S 311 DEPRESSIVE DISORDER NOS 09/16/2012 LUPE INTERDISCIPLINARY PROFESSOR, SURESH S 562.11 DIVERTICULITIS OF COLON (WITHOUT HEMORRHAGE) 09/16/2012 LUPE INTERDISCIPLINARY PROFESSOR, SURESH S 719.46 PAIN- KNEE 09/16/2012 LUPE INTERDISCIPLINARY PROFESSOR, USRESH S 305.50 NONDEPENDENT OPIOID ABUSE UNSPECIFIED USE 09/16/2012 LUPE INTERDISCIPLINARY PROFESSOR, SURESH S 311 DEPRESSIVE DISORDER NOS 09/16/2012 LUPE INTERDISCIPLINARY PROFESSOR, SURESH S 562.11 DIVERTICULITIS OF COLON (WITHOUT HEMORRHAGE) 09/16/2012 LUPE INTERDISCIPLINARY PROFESSOR, SURESH S 719.46 PAIN- KNEE 09/16/2012 [facility], SYBIL R 305.50 NONDEPENDENT OPIOID ABUSE UNSPECIFIED USE 09/16/2012 [facility], SYBIL R 311 DEPRESSIVE DISORDER NOS 09/16/2012 [facility], SYBIL R 562.11 DIVERTICULITIS OF COLON (WITHOUT HEMORRHAGE) 09/16/2012 [facility], SYBIL R 719.46 PAIN- KNEE 09/16/2012 LUPE INTERDISCIPLINARY PROFESSOR SURESH S 305.50 NONDEPENDENT OPIOID ABUSE UNSPECIFIED USE 09/16/2012 LUPE INTERDISCIPLINARY PROFESSOR, SURESH S 311 DEPRESSIVE DISORDER NOS 09/16/2012 LUPE INTERDISCIPLINARY PROFESSOR, SURESH S 562.11 DIVERTICULITIS OF COLON (WITHOUT HEMORRHAGE) 09/16/2012 LUPE INTERDISCIPLINARY PROFESSOR SURESH S 719.46 PAIN- KNEE 09/16/2012 LUPE INTERDISCIPLINARY PROFESSOR SURESH S 305.50 NONDEPENDENT OPIOID ABUSE UNSPECIFIED USE 09/16/2012 LUPE INTERDISCIPLINARY PROFESSOR, SURESH S 311 DEPRESSIVE DISORDER NOS 09/16/2012 LUPE INTERDISCIPLINARY PROFESSOR SURESH S 562.11 DIVERTICULITIS OF COLON (WITHOUT HEMORRHAGE) 09/16/2012 LUPE INTERDISCIPLINARY PROFESSOR SURESH S 719.46 PAIN- KNEE 09/16/2012 MAURICE WOLFN JAILENE R 305.50 NONDEPENDENT OPIOID ABUSE UNSPECIFIED USE 09/16/2012 MAURICE INTERDISCIPLINARY PROFESSOR JAILENE R 311 DEPRESSIVE DISORDER NOS 09/16/2012 MAURICE INTERDISCIPLINARY PROFESSOR, JAILENE R 562.11 DIVERTICULITIS OF COLON (WITHOUT HEMORRHAGE) 09/16/2012 MAURICE INTERDISCIPLINARY PROFESSOR JAILENE R 719.46 PAIN- KNEE 09/16/2012 PANCHO INTERDISCIPLINARY PROFESSOR, AIRAM A 305.50 NONDEPENDENT OPIOID ABUSE UNSPECIFIED USE 09/16/2012 PANCHO INTERDISCIPLINARY PROFESSOR, AIRAM A 311 DEPRESSIVE DISORDER NOS 09/16/2012 PANCHO INTERDISCIPLINARY PROFESSOR, AIRAM A 562.11 DIVERTICULITIS OF COLON (WITHOUT HEMORRHAGE) 09/16/2012 PANCHO INTERDISCIPLINARY PROFESSOR, AIRAM A 719.46 PAIN- KNEE 09/16/2012 [facility], SYBIL R 305.50 NONDEPENDENT OPIOID ABUSE UNSPECIFIED USE 09/16/2012 [facility], SYBIL R 311 DEPRESSIVE DISORDER NOS 09/16/2012 [facility], SYBIL R 562.11 DIVERTICULITIS OF COLON (WITHOUT HEMORRHAGE) 09/16/2012 [facility], SYBIL R 719.46 PAIN- KNEE 09/16/2012 [facility], SYBIL R 305.50 NONDEPENDENT OPIOID ABUSE UNSPECIFIED USE 09/16/2012 [facility], SYBIL R 311 DEPRESSIVE DISORDER NOS 09/16/2012 [facility], SYBIL R 562.11 DIVERTICULITIS OF COLON (WITHOUT HEMORRHAGE) 09/[facility]/2012 [facility] 719.46 PAIN- KNEE 09/16/2012 AIRAM DELEON APRN A 305.50 NONDEPENDENT OPIOID ABUSE UNSPECIFIED USE 09/16/2012 AIRAM DELEON APRN A 311 DEPRESSIVE DISORDER NOS 09/16/2012 NASREEN DELEON APRNIDI A 562.11 DIVERTICULITIS OF COLON (WITHOUT HEMORRHAGE) 09/16/2012 NASREEN DELEON APRNIDI A 719.46 PAIN- KNEE 11/08/2012 626.4 IRREGULAR MENSTRUAL CYCLE 11/08/2012 782.7 SPONTANEOUS ECCHYMOSES 11/08/2012 626.4 IRREGULAR MENSTRUAL CYCLE 11/08/2012 782.7 SPONTANEOUS ECCHYMOSES 11/08/2012 626.4 IRREGULAR MENSTRUAL CYCLE 11/08/2012 782.7 SPONTANEOUS ECCHYMOSES 11/08/2012 626.4 IRREGULAR MENSTRUAL CYCLE 11/08/2012 782.7 SPONTANEOUS ECCHYMOSES 11/08/2012 JOSE ELIAS CORNELIUS APRN 626.4 IRREGULAR MENSTRUAL CYCLE 11/08/2012 JOSE ELIAS CORNELIUS APRN 782.7 SPONTANEOUS ECCHYMOSES 11/08/2012 MAINOR CONTRERAS APRN 626.4 IRREGULAR MENSTRUAL CYCLE 11/08/2012 MAINOR CONTRERAS APRN 782.7 SPONTANEOUS ECCHYMOSES 11/08/2012 SURESH ANDRADE APRN 626.4 IRREGULAR MENSTRUAL CYCLE 11/08/2012 SURESH ANDRADE APRN 782.7 SPONTANEOUS ECCHYMOSES 11/08/2012 SURESH ANDRADE APRN 626.4 IRREGULAR MENSTRUAL CYCLE 11/08/2012 SURESH ANDRADE APRN 782.7 SPONTANEOUS ECCHYMOSES 11/08/2012 LUPE INTERDISCIPLINARY PROFESSOR, SURESH S 626.4 IRREGULAR MENSTRUAL CYCLE 11/08/2012 LUPE INTERDISCIPLINARY PROFESSOR, SURESH S 782.7 SPONTANEOUS ECCHYMOSES 11/08/2012 LUPE INTERDISCIPLINARY PROFESSOR, SURESH S 626.4 IRREGULAR MENSTRUAL CYCLE 11/08/2012 LUPE INTERDISCIPLINARY PROFESSOR, SURESH S 782.7 SPONTANEOUS ECCHYMOSES 11/08/2012 LUPE INTERDISCIPLINARY PROFESSOR, SURESH S 626.4 IRREGULAR MENSTRUAL CYCLE 11/08/2012 LUPE INTERDISCIPLINARY PROFESSOR, SURESH S 782.7 SPONTANEOUS ECCHYMOSES 11/08/2012 626.4 IRREGULAR MENSTRUAL CYCLE 11/08/2012 782.7 SPONTANEOUS ECCHYMOSES 11/08/2012 OG INTERDISCIPLINARY PROFESSOR, MEGHA 626.4 IRREGULAR MENSTRUAL CYCLE 11/08/2012 OG INTERDISCIPLINARY PROFESSOR, MEGHA 782.7 SPONTANEOUS ECCHYMOSES 11/08/2012 LUPE INTERDISCIPLINARY PROFESSOR, SURESH S 626.4 IRREGULAR MENSTRUAL CYCLE 11/08/2012 LUPE INTERDISCIPLINARY PROFESSOR, SURESH S 782.7 SPONTANEOUS ECCHYMOSES 11/08/2012 LUPE INTERDISCIPLINARY PROFESSOR, SURESH S 626.4 IRREGULAR MENSTRUAL CYCLE 11/08/2012 LUPE INTERDISCIPLINARY PROFESSOR, SURESH S 782.7 SPONTANEOUS ECCHYMOSES 11/08/2012 LUPE INTERDISCIPLINARY PROFESSOR, SURESH S 626.4 IRREGULAR MENSTRUAL CYCLE 11/08/2012 LUPE INTERDISCIPLINARY PROFESSOR, SURESH S 782.7 SPONTANEOUS ECCHYMOSES 11/08/2012 [facility], SYBIL R 626.4 IRREGULAR MENSTRUAL CYCLE 11/08/2012 [facility], SYBIL R 782.7 SPONTANEOUS ECCHYMOSES 11/08/2012 LUPE INTERDISCIPLINARY PROFESSOR, SURESH S 626.4 IRREGULAR MENSTRUAL CYCLE 11/08/2012 LUPE INTERDISCIPLINARY PROFESSOR, SURESH S 782.7 SPONTANEOUS ECCHYMOSES 11/08/2012 LUPE INTERDISCIPLINARY PROFESSOR, SURESH S 626.4 IRREGULAR MENSTRUAL CYCLE 11/08/2012 LUPE INTERDISCIPLINARY PROFESSOR, SURESH S 782.7 SPONTANEOUS ECCHYMOSES 11/08/2012 MAURICE INTERDISCIPLINARY PROFESSOR, JAILENE R 626.4 IRREGULAR MENSTRUAL CYCLE 11/08/2012 MAURICE INTERDISCIPLINARY PROFESSOR, JAILENE R 782.7 SPONTANEOUS ECCHYMOSES 11/08/2012 PANCHO INTERDISCIPLINARY PROFESSOR, AIRAM A 626.4 IRREGULAR MENSTRUAL CYCLE 11/08/2012 PANCHO INTERDISCIPLINARY PROFESSOR, AIRAM A 782.7 SPONTANEOUS ECCHYMOSES 11/08/2012 [facility], SYBIL R 626.4 IRREGULAR MENSTRUAL CYCLE 11/08/2012 [facility], SYBIL R 782.7 SPONTANEOUS ECCHYMOSES 11/08/2012 [facility], SYBIL R 626.4 IRREGULAR MENSTRUAL CYCLE 11/08/2012 [facility], SYBIL R 782.7 SPONTANEOUS ECCHYMOSES 11/08/2012 PANCHO INTERDISCIPLINARY PROFESSOR, AIRAM A 626.4 IRREGULAR MENSTRUAL CYCLE 11/08/2012 PANCHO INTERDISCIPLINARY PROFESSOR, AIRAM A 782.7 SPONTANEOUS ECCHYMOSES 11/15/2012 789.09 ABDOMINAL PAIN OTHER SPECIFIED SITE 11/15/2012 V74.5 STD SCREEN 11/15/2012 789.09 ABDOMINAL PAIN OTHER SPECIFIED SITE 11/15/2012 V74.5 STD SCREEN 11/15/2012 789.09 ABDOMINAL PAIN OTHER SPECIFIED SITE 11/15/2012 V74.5 STD SCREEN 11/15/2012 CORNELIUSHEIDI BROWN JOSE ELIAS ELDER 789.09 ABDOMINAL PAIN OTHER SPECIFIED SITE 11/15/2012 ASHLI STEPHANIEJOSE ELIAS V74.5 STD SCREEN 11/15/2012 MAINOR CONTRERAS APRN 789.09 ABDOMINAL PAIN OTHER SPECIFIED SITE 11/15/2012 MAINOR CONTRERAS APRN V74.5 STD SCREEN 11/15/2012 LUPE INTERDISCIPLINARY PROFESSOR, SURESH S 789.09 ABDOMINAL PAIN OTHER SPECIFIED SITE 11/15/2012 LUPE INTERDISCIPLINARY PROFESSOR, SURESH S V74.5 STD SCREEN 11/15/2012 LUPE INTERDISCIPLINARY PROFESSOR, SURESH S 789.09 ABDOMINAL PAIN OTHER SPECIFIED SITE 11/15/2012 LUPE INTERDISCIPLINARY PROFESSOR, SURESH S V74.5 STD SCREEN 11/15/2012 LUPE INTERDISCIPLINARY PROFESSOR, SURESH S 789.09 ABDOMINAL PAIN OTHER SPECIFIED SITE 11/15/2012 LUPE INTERDISCIPLINARY PROFESSOR, SURESH S V74.5 STD SCREEN 11/15/2012 LUPE INTERDISCIPLINARY PROFESSOR, SURESH S 789.09 ABDOMINAL PAIN OTHER SPECIFIED SITE 11/15/2012 LUPE INTERDISCIPLINARY PROFESSOR, SURESH S V74.5 STD SCREEN 11/15/2012 LUPE INTERDISCIPLINARY PROFESSOR, SURESH S 789.09 ABDOMINAL PAIN OTHER SPECIFIED SITE 11/15/2012 LUPE INTERDISCIPLINARY PROFESSOR, SURESH S V74.5 STD SCREEN 11/15/2012 789.09 ABDOMINAL PAIN OTHER SPECIFIED SITE 11/15/2012 V74.5 STD SCREEN 11/15/2012 OG INTERDISCIPLINARY PROFESSOR, MEGHA 789.09 ABDOMINAL PAIN OTHER SPECIFIED SITE 11/15/2012 OG INTERDISCIPLINARY PROFESSOR, MEGHA V74.5 STD SCREEN 11/15/2012 LUPE INTERDISCIPLINARY PROFESSOR, SURESH S 789.09 ABDOMINAL PAIN OTHER SPECIFIED SITE 11/15/2012 LUPE INTERDISCIPLINARY PROFESSOR, SURESH S V74.5 STD SCREEN 11/15/2012 LUPE INTERDISCIPLINARY PROFESSOR, SURESH S 789.09 ABDOMINAL PAIN OTHER SPECIFIED SITE 11/15/2012 LUPE INTERDISCIPLINARY PROFESSOR, SURESH S V74.5 STD SCREEN 11/15/2012 LUEP INTERDISCIPLINARY PROFESSOR, SURESH S 789.09 ABDOMINAL PAIN OTHER SPECIFIED SITE 11/15/2012 LUPE INTERDISCIPLINARY PROFESSOR, SURESH S V74.5 STD SCREEN 11/15/2012 [facility], SYBIL R 789.09 ABDOMINAL PAIN OTHER SPECIFIED SITE 11/15/2012 [facility], SYBIL R V74.5 STD SCREEN 11/15/2012 LUPE INTERDISCIPLINARY PROFESSOR, SURESH S 789.09 ABDOMINAL PAIN OTHER SPECIFIED SITE 11/15/2012 LUPE INTERDISCIPLINARY PROFESSOR, SURESH S V74.5 STD SCREEN 11/15/2012 LUPE INTERDISCIPLINARY PROFESSOR, SURESH S 789.09 ABDOMINAL PAIN OTHER SPECIFIED SITE 11/15/2012 LUPE INTERDISCIPLINARY PROFESSOR, SURESH S V74.5 STD SCREEN 11/15/2012 MAURICE INTERDISCIPLINARY PROFESSOR, JAILENE R 789.09 ABDOMINAL PAIN OTHER SPECIFIED SITE 11/15/2012 MAURICE INTERDISCIPLINARY PROFESSOR, JAILENE R V74.5 STD SCREEN 11/15/2012 PANCHO INTERDISCIPLINARY PROFESSOR, AIRAM A 789.09 ABDOMINAL PAIN OTHER SPECIFIED SITE 11/15/2012 PANCHO INTERDISCIPLINARY PROFESSOR, AIRAM A V74.5 STD SCREEN 11/15/2012 [facility], SYBIL R 789.09 ABDOMINAL PAIN OTHER SPECIFIED SITE 11/15/2012 [facility], SYBIL R V74.5 STD SCREEN 11/15/2012 [facility], SYBIL R 789.09 ABDOMINAL PAIN OTHER SPECIFIED SITE 11/15/2012 [facility], SYBIL R V74.5 STD SCREEN 11/15/2012 PANCHO INTERDISCIPLINARY PROFESSOR, AIRAM A 789.09 ABDOMINAL PAIN OTHER SPECIFIED SITE 11/15/2012 PANCHO INTERDISCIPLINARY PROFESSOR, AIRAM A V74.5 STD SCREEN 01/01/2013 KATE DO, PEE K Ot 300.00 01/01/2013 KATE DO, PEE K Ot 311 01/01/2013 KATE DO, PEE K Ot 338.29 01/01/2013 KATE DO, PEE K Ot 401.9 01/01/2013 KATE DO, PEE K Ot 716.90 01/01/2013 KATE DO, PEE K Ot 719.41 01/01/2013 KATE DO, PEE K Ot 719.45 01/01/2013 KATE DO, PEE K Ot 719.47 01/01/2013 KATE DO, PEE K Ot 729.5 01/01/2013 KATE DO, PEE K Ot 847.9 01/01/2013 KATE DO, PEE K Ot 924.8 01/01/2013 KATE DO, PEE K Ot E000.0 01/01/2013 KATE DO, PEE K Ot E029.9 01/01/2013 KATE DO, PEE K Ot E849.6 01/01/2013 KATE DO, PEE K Ot E917.8 05/22/2013 LUPE INTERDISCIPLINARY PROFESSOR, SURESH S 599.0 URINARY TRACT INFECTION 05/22/2013 LUPE INTERDISCIPLINARY PROFESSOR, SURESH S 599.0 URINARY TRACT INFECTION 05/22/2013 LUPE INTERDISCIPLINARY PROFESSOR, SURESH S 599.0 URINARY TRACT INFECTION 05/22/2013 LUPE INTERDISCIPLINARY PROFESSOR, SURESH S 599.0 URINARY TRACT INFECTION 05/22/2013 LUPE INTERDISCIPLINARY PROFESSOR, SURESH S 599.0 URINARY TRACT INFECTION 05/22/2013 599.0 URINARY TRACT INFECTION 05/22/2013 MEGHA FOLEY APRN 599.0 URINARY TRACT INFECTION 05/22/2013 LUPE INTERDISCIPLINARY PROFESSOR, SURESH S 599.0 URINARY TRACT INFECTION 05/22/2013 LUPE INTERDISCIPLINARY PROFESSOR, SURESH S 599.0 URINARY TRACT INFECTION 05/22/2013 LUPE INTERDISCIPLINARY PROFESSOR, SURESH S 599.0 URINARY TRACT INFECTION 05/22/2013 [facility], SYBIL R 599.0 URINARY TRACT INFECTION 05/22/2013 LUPE INTERDISCIPLINARY PROFESSOR, SURESH S 599.0 URINARY TRACT INFECTION 05/22/2013 LUPE INTERDISCIPLINARY PROFESSOR, SURESH S 599.0 URINARY TRACT INFECTION 05/22/2013 MAURICE INTERDISCIPLINARY PROFESSOR JAILENE R 599.0 URINARY TRACT INFECTION 05/22/2013 NASREEN DELEON APRNIDI A 599.0 URINARY TRACT INFECTION 05/22/2013 [facility], SYBIL R 599.0 URINARY TRACT INFECTION 05/22/2013 [facility], SYBIL R 599.0 URINARY TRACT INFECTION 05/22/2013 PANCHO INTERDISCIPLINARY PROFESSORNASREEN HollingsworthIDI A 599.0 URINARY TRACT INFECTION 05/23/2013 LUPE INTERDISCIPLINARY PROFESSOR, SURESH S 300.00 AN ANXIETY UNSPEC 05/23/2013 LUPE INTERDISCIPLINARY PROFESSOR, SURESH S 300.00 AN ANXIETY UNSPEC 05/23/2013 LUPE INTERDISCIPLINARY PROFESSOR, SURESH S 300.00 AN ANXIETY UNSPEC 05/23/2013 LUPE INTERDISCIPLINARY PROFESSOR, SURESH S 300.00 AN ANXIETY UNSPEC 05/23/2013 300.00 AN ANXIETY UNSPEC 05/23/2013 MEGHA FOLEY APRN 300.00 AN ANXIETY UNSPEC 05/23/2013 LUPE INTERDISCIPLINARY PROFESSOR, SURESH S 300.00 AN ANXIETY UNSPEC 05/23/2013 LUPE INTERDISCIPLINARY PROFESSOR, SURESH S 300.00 AN ANXIETY UNSPEC 05/23/2013 LUPE INTERDISCIPLINARY PROFESSOR, SURESH S 300.00 AN ANXIETY UNSPEC 05/23/2013 [facility], SYBIL R 300.00 AN ANXIETY UNSPEC 05/23/2013 LUPE INTERDISCIPLINARY PROFESSOR, SURESH S 300.00 AN ANXIETY UNSPEC 05/23/2013 LUPE INTERDISCIPLINARY PROFESSOR, SURESH S 300.00 AN ANXIETY UNSPEC 05/23/2013 MAURICE WOLFN JAILENE R 300.00 AN ANXIETY UNSPEC 05/23/2013 PANCHO WOLFN AIRAM A 300.00 AN ANXIETY UNSPEC 05/23/2013 [facility], SYBIL R 300.00 AN ANXIETY UNSPEC 05/23/2013 [facility], SYBIL R 300.00 AN ANXIETY UNSPEC 05/23/2013 PANCHO INTERDISCIPLINARY PROFESSOR, AIRAM A 300.00 AN ANXIETY UNSPEC 05/26/2013 LUPE INTERDISCIPLINARY PROFESSOR, SURESH S 272.4 HYPERLIPIDEMIA 05/26/2013 LUPE INTERDISCIPLINARY PROFESSOR, SURESH S 272.4 HYPERLIPIDEMIA 05/26/2013 LUPE INTERDISCIPLINARY PROFESSOR, SURESH S 272.4 HYPERLIPIDEMIA 05/26/2013 LUPE INTERDISCIPLINARY PROFESSOR, SURESH S 272.4 HYPERLIPIDEMIA 05/26/2013 272.4 HYPERLIPIDEMIA 05/26/2013 OG INTERDISCIPLINARY PROFESSOR, MEGHA 272.4 HYPERLIPIDEMIA 05/26/2013 LUPE INTERDISCIPLINARY PROFESSOR, SURESH S 272.4 HYPERLIPIDEMIA 05/26/2013 [employer], SURESH S 272.4 HYPERLIPIDEMIA 05/26/2013 [employer], SURESH S 272.4 HYPERLIPIDEMIA 05/26/2013 [facility], SYBIL R 272.4 HYPERLIPIDEMIA 05/26/2013 [employer] PROFESS[employer], SURESH S 272.4 HYPERLIPIDEMIA 05/26/2013 [employer] PROF[employer], SURESH S 272.4 HYPERLIPIDEMIA 05/26/2013 [facility] INTERDISCIPLINARY PROFESSOR, JAILENE R 272.4 HYPERLIPIDEMIA 05/26/2013 [facility] [employer] PROF[employer], AIRAM A 272.4 HYPERLIPIDEMIA 05/26/2013 [facility], SYBIL R 272.4 HYPERLIPIDEMIA 05/26/2013 [facility], SYBIL R 272.4 HYPERLIPIDEMIA 05/26/2013 [employer], AIRAM A 272.4 HYPERLIPIDEMIA 06/26/2013 [employer], SURESH S 786.52 CHEST WALL PAIN 06/26/2013 [employer], SURESH S 786.52 CHEST WALL PAIN 06/26/2013 [employer] PROF[employer], SURESH S 786.52 CHEST WALL PAIN 06/26/2013 786.52 CHEST WALL PAIN 06/26/2013 [facility] PROFESSOR, MEGHA 786.52 CHEST WALL PAIN 06/26/2013 [employer], SURESH S 786.52 CHEST WALL PAIN 06/26/2013 [facility] [employer], SURESH S 786.52 CHEST WALL PAIN 06/26/2013 [employer], SURESH S 786.52 CHEST WALL PAIN 06/26/2013 [facility], SYBIL R 786.52 CHEST WALL PAIN 06/26/2013 [employer], SURESH S 786.52 CHEST WALL PAIN 06/26/2013 [employer], SURESH S 786.52 CHEST WALL PAIN 06/26/2013 [facility] [employer], JAILENE R 786.52 CHEST WALL PAIN 06/26/2013 [facility] [employer], IARAM A 786.52 CHEST WALL PAIN 06/26/2013 [facility], SYBIL R 786.52 CHEST WALL PAIN 06/26/2013 [facility] SY[facility]IL [facility] 786.52 CHEST WALL PAIN 06/26/2013 [employer] PROF[employer], AIRAM A 786.52 CHEST WALL PAIN 11/26/2013 [employer], SURESH S 354.0 CARPAL TUNNEL SYNDROME 11/26/2013 [employer], SURESH S 354.0 CARPAL TUNNEL SYNDROME 11/26/2013 [employer], SURESH S 354.0 CARPAL TUNNEL SYNDROME 11/26/2013 [facility], SYBIL R 354.0 CARPAL TUNNEL SYNDROME 11/26/2013 [employer], SURESH S 354.0 CARPAL TUNNEL SYNDROME 11/26/2013 [employer], SURESH S 354.0 CARPAL TUNNEL SYNDROME 11/26/2013 [facility] [employer], JAILENE R 354.0 CARPAL TUNNEL SYNDROME 11/26/2013 [facility] [employer], AIRAM A 354.0 CARPAL TUNNEL SYNDROME 11/26/2013 [facility], SYBIL R 354.0 CARPAL TUNNEL SYNDROME 11/26/2013 [facility], SYBIL R 354.0 CARPAL TUNNEL SYNDROME 11/26/2013 [employer], AIRAM A 354.0 CARPAL TUNNEL SYNDROME 12/11/2013 [employer], SURESH S 780.79 FATIGUE 12/11/2013 [employer] PROF[employer], SURESH S 786.09 RESPIRATORY ABNORMALITY OTHER 12/11/2013 [employer], SURESH S V17.49 FAMILY HISTORY OF OTHER CARDIOVASCULAR DISEASES 12/11/2013 [employer] PROFESS[employer], SURESH S 780.79 FATIGUE 12/11/2013 [employer] PROFESS[employer], SURESH S 786.09 RESPIRATORY ABNORMALITY OTHER 12/11/2013 [employer] PROF[employer], SURESH S V17.49 FAMILY HISTORY OF OTHER CARDIOVASCULAR DISEASES 12/11/2013 [facility], SYBIL R 780.79 FATIGUE 12/11/2013 [facility], SYBIL R 786.09 RESPIRATORY ABNORMALITY OTHER 12/11/2013 [facility], SYBIL R V17.49 FAMILY HISTORY OF OTHER CARDIOVASCULAR DISEASES 12/11/2013 [employer], SURESH S 780.79 FATIGUE 12/11/2013 [employer] PROF[employer], SURESH S 786.09 RESPIRATORY ABNORMALITY OTHER 12/11/2013 [employer] PROF[employer], SURESH S V17.49 FAMILY HISTORY OF OTHER CARDIOVASCULAR DISEASES 12/11/2013 [employer] PROFESS[employer], SURESH S 780.79 FATIGUE 12/11/2013 [employer] PROFESSOR, SURESH S 786.09 RESPIRATORY ABNORMALITY OTHER 12/11/2013 [employer] PROFESSOR, SURESH S V17.49 FAMILY HISTORY OF OTHER CARDIOVASCULAR DISEASES 12/11/2013 MAURICE INTERDISCIPLINARY PROFESSOR, JAILENE R 780.79 FATIGUE 12/11/2013 MAURICE INTERDISCIPLINARY PROFESSOR, JAILENE R 786.09 RESPIRATORY ABNORMALITY OTHER 12/11/2013 MAURICE INTERDISCIPLINARY PROFESSOR, JAILENE R V17.49 FAMILY HISTORY OF OTHER CARDIOVASCULAR DISEASES 12/11/2013 PANCHO INTERDISCIPLINARY PROFESSOR, AIRAM A 780.79 FATIGUE 12/11/2013 PANCHO INTERDISCIPLINARY PROFESSOR, AIRAM A 786.09 RESPIRATORY ABNORMALITY OTHER 12/11/2013 PANCHO INTERDISCIPLINARY PROFESSOR, AIRAM A V17.49 FAMILY HISTORY OF OTHER CARDIOVASCULAR DISEASES 12/11/2013 [facility], SYBIL R 780.79 FATIGUE 12/11/2013 [facility], SYBIL R 786.09 RESPIRATORY ABNORMALITY OTHER 12/11/2013 [facility], SYBIL R V17.49 FAMILY HISTORY OF OTHER CARDIOVASCULAR DISEASES 12/11/2013 [facility], SYBIL R 780.79 FATIGUE 12/11/2013 [facility], SYBIL R 786.09 RESPIRATORY ABNORMALITY OTHER 12/11/2013 [facility], SYBIL R V17.49 FAMILY HISTORY OF OTHER CARDIOVASCULAR DISEASES 12/11/2013 PANCHO INTERDISCIPLINARY PROFESSOR, AIRAM A 780.79 FATIGUE 12/11/2013 PANCHO INTERDISCIPLINARY PROFESSOR, AIRAM A 786.09 RESPIRATORY ABNORMALITY OTHER 12/11/2013 PANCHO INTERDISCIPLINARY PROFESSOR, AIRAM A V17.49 FAMILY HISTORY OF OTHER CARDIOVASCULAR DISEASES 12/24/2013 [facility] INTERDISCIPLINARY PROFESSORMATTSURESH S 034.1 SCARLET FEVER 12/24/2013 LUPE INTERDISCIPLINARY PROFESSOR, SURESH S 211.9 BENIGN NEOPLASM OF OTHER AND UNSPECIFIED SITE IN THE DIGESTIVE SYSTEM 12/24/2013 [facility], SYBIL R 034.1 SCARLET FEVER 12/24/2013 FELIC[facility]AS [facility], SYBIL R 211.9 BENIGN NEOPLASM OF OTHER AND UNSPECIFIED SITE IN THE DIGESTIVE SYSTEM 12/24/2013 LUPE INTERDISCIPLINARY PROFESSOR SURESH S 034.1 SCARLET FEVER 12/24/2013 LUPE INTERDISCIPLINARY PROFESSOR, SURESH S 211.9 BENIGN NEOPLASM OF OTHER AND UNSPECIFIED SITE IN THE DIGESTIVE SYSTEM 12/24/2013 LUPE INTERDISCIPLINARY PROFESSOR SURESH S 034.1 SCARLET FEVER 12/24/2013 LUPE INTERDISCIPLINARY PROFESSOR SURESH S 211.9 BENIGN NEOPLASM OF OTHER AND UNSPECIFIED SITE IN THE DIGESTIVE SYSTEM 12/24/2013 MAURICE WOLFN JAILENE R 034.1 SCARLET FEVER 12/24/2013 MAURICE WOLFN JAILENE R 211.9 BENIGN NEOPLASM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
--- NOTE | 2016-08-18 18:15 | Diagnostic Imaging Report ---
PROCEDURE: US Thyroid. TECHNIQUE: Multiple real-time grayscale images were obtained of the thyroid in various projections. INDICATION: Thyroid nodules. FINDINGS: The previous thyroid ultrasound exam performed on 10/09/2015 suggested a multinodular goiter with a dominant left nodule. The subsequent nuclear medicine thyroid scan performed on 10/17/2015 indicated that the dominant nodule in the left lobe is a cold nodule. The patient then underwent an ultrasound-guided biopsy of the nodule on 10/29/2015. The results of that biopsy are not known to me. On this study, the hyperechoic nodule in the inferior pole of the left lobe seen previously is again evident and does not seem to have changed significantly in size. This area now measures 2.7 x 2.5 x 2.1 cm as opposed to 2.5 x 2.1 x 2.1 cm. The overall appearance of the thyroid gland itself has not changed significantly. There are still other nodules in both lobes. The thyroid gland itself is mildly enlarged with the right lobe measuring 4.2 x 1.7 x 2.4 cm and left lobe estimated to be 4.5 x 2.5 x 2.8 cm (normal gland size 4-5 x 2 x 2 cm or less). IMPRESSION: The hyperechoic lesion in the inferior pole of the left lobe of the thyroid seen previously is again evident and essentially no different. The overall appearance of the thyroid gland itself has not changed significantly otherwise. No new abnormality has developed. Dictated by: Dictated on workstation # [id number]
== END ==
LOC: RAD 11:03
PROVIDERS: ATTEND Internal Medicine
DX: E04.1 Nontoxic single thyroid nodule (principal)
CPT/HCPCS: 76536

== ENCOUNTER 2018-03-27 10:23 | Emergency (ER) | payer SELFPAY ==
[~2018-03-27] VITALS: Ht 154.9 cm; Wt 95.3 kg
[~2018-03-27 10:23] MED LIST changes: -AMLO10TA2; +AMLO10TA6
--- NOTE | 2018-03-27 11:24 | Diagnostic Imaging Report ---
INDICATION: Severe headache. Comparison is made to study of 09/22/2015. CT HEAD: Multiple contiguous axial CT images of the head were obtained. FINDINGS: Ventricles and sulci are within normal limits for size. There is no intracranial hemorrhage identified. There is no abnormal mass effect or shift of midline structures. IMPRESSION: Unremarkable CT of the head. Dictated by: Dictated on workstation # [id number]
[2018-03-27] MEDS ORDERED: LORazepam INJ 2 MG/ML (ATIVAN) VIAL IVP ONE (11:30)
[2018-03-27] MEDS ORDERED: meTOprolol 5 MG/5 ML (LOPRESSOR) VIAL IV ONE (11:30)
[2018-03-27 11:38] LABS: BASOPHILS % (AUTO) 1 % (0-10); EOSINOPHILS % (AUTO) 0 % (0-10); HEMATOCRIT 41 % (35-52); HEMOGLOBIN 15.2 G/DL (11.5-16.0); LYMPHOCYTES # (AUTO) 2.5 X 10^3 (1.0-4.0); LYMPHOCYTES % (AUTO) 29 % (12-44); MEAN CORPUSCULAR HEMOGLOBIN 31 PG (25-34); MEAN CORPUSCULAR HGB CONC 37 G/DL (32-36); MEAN CORPUSCULAR VOLUME 84 FL (80-99); MEAN PLATELET VOLUME 8.9 FL (7.4-10.4); MONOCYTES # (AUTO) 0.7 X 10^3 (0.0-1.0); MONOCYTES % (AUTO) 8 % (0-12); NEUTROPHILS # (AUTO) 5.2 X 10^3 (1.8-7.8); NEUTROPHILS % (AUTO) 62 % (42-75); PLATELET COUNT 284 10^3/uL (130-400); RED BLOOD COUNT 4.86 10^6/uL (4.35-5.85); RED CELL DISTRIBUTION WIDTH 13.5 % (10.0-14.5); WHITE BLOOD COUNT 8.4 10^3/uL (4.3-11.0)
[2018-03-27 11:56] LABS: ALANINE AMINOTRANSFERASE 25 U/L (0-55); ALBUMIN 4.4 GM/DL (3.2-4.5); ALKALINE PHOSPHATASE 81 U/L (40-136); BILIRUBIN,TOTAL 0.5 MG/DL (0.1-1.0); BUN/CREATININE RATIO 12; CALCIUM 9.7 MG/DL (8.5-10.1); CARBON DIOXIDE 22 MMOL/L (21-32); CHLORIDE 106 MMOL/L (98-107); CREATININE SERUM 0.69 MG/DL (0.60-1.30); GFR ESTIMATED > 60; GLUCOSE 110 MG/DL (70-105); POTASSIUM 3.9 MMOL/L (3.6-5.0); SODIUM 141 MMOL/L (135-145); TOTAL PROTEIN 7.6 GM/DL (6.4-8.2)
[2018-03-27 12:16] LABS: BILIRUBIN,URINE NEGATIVE (NEGATIVE); CLARITY,URINE SLIGHTLY CLOUDY; COLOR,URINE YELLOW; GLUCOSE, URINE (UA) NEGATIVE (NEGATIVE); KETONES,URINE NEGATIVE (NEGATIVE); LEUKOCYTE ESTERASE ,URINE 3+ (NEGATIVE); NITRITE,URINE NEGATIVE (NEGATIVE); PH,URINE 6 (5-9); PROTEIN,URINE NEGATIVE (NEGATIVE); UROBILINOGEN,URINE NORMAL (NORMAL)
[2018-03-27 12:22] LABS: FREE T4 (FREE THYROXINE) 1.05 NG/DL (0.70-1.48)
[2018-03-27 12:23] LABS: BACTERIA,URINE FEW /HPF; SQUAMOUS EPITHELIAL CELL,UR 0-2 /HPF; WBC,URINE 50-100 /HPF
[2018-03-27] MEDS ORDERED: diphenhydrAMINE 50 MG/ML INJ (BENADRYL) IV ONE (12:30)
[2018-03-27] MEDS ORDERED: PROCHLORPERAZINE 10 MG/2ML INJ (COMPAZINE) IV ONE (12:30)
[2018-03-27] MEDS ORDERED: KETOROLAC 30 MG/ML VIAL IVP ONE (12:30)
[2018-03-27 12:31] LABS: AMPHETAMINE SCREEN, URINE NEGATIVE (NEGATIVE); BARBITURATE SCREEN URINE NEGATIVE (NEGATIVE); BENZODIAZEPINES SCREEN URINE POSITIVE (NEGATIVE); CANNABINOID SCREEN, URINE POSITIVE (NEGATIVE); COCAINE SCREEN URINE NEGATIVE (NEGATIVE); METHADONE STAT NEGATIVE (NEGATIVE); METHAMPHETAMINE SCREEN URINE S NEGATIVE (NEGATIVE); OPIATE SCREEN URINE NEGATIVE (NEGATIVE); OXYCODONE STAT NEGATIVE (NEGATIVE); PROPOXYPHENE STAT NEGATIVE (NEGATIVE); TRICYCLIC ANTIDEPRESSANTS SCRE NEGATIVE (NEGATIVE)
[2018-03-27] MEDS ORDERED: cloNIDine 0.2 MG (CATAPRES) TAB PO ONE (13:15)
--- NOTE | 2018-03-27 13:42 | ED Headache ---
General Chief Complaint: Head/Cervical Problems Stated Complaint: HEADACHE;CONGESTION Source: patient Exam Limitations: no limitations History of Present Illness Date Seen by Provider: Mar 27, 2018 Time Seen by Provider: 10:53 Initial Comments Patient is a 52-year-old female who presents to the emergency room with complaints of migraine headache for 2 months. She reports for the past few days she has had sinus congestion that has caused the migraine to become worse. Patient is hysterical and crying on arrival to the emergency room, she is just stating over and over that she cannot afford to miss work and wants to leave. She also reports that she has stopped taking all of her medications including her blood pressure medication for the past 2 months. She is found to be hypertensive on triage. Timing/Duration: other (2 months) Severity/Quality: constant, pressure Location: global Prior Headaches/Recent Trauma: frequent headaches Associated Symptoms: No vision changes; other (sinus pressure.) Allergies and Home Medications Allergies Coded Allergies: Penicillins (Unverified Allergy, Mild, hives, 01/28/09) Home Medications No Active Prescriptions or Reported Meds Patient Home Medication List Home Medication List Reviewed: Yes Review of Systems Review of Systems Constitutional: see HPI; No chills, No fever Past Hmigwov-Ennbzg-Djijlr Hx Past Med/Social Hx: Reviewed Nursing Past Med/Soc Hx Seasonal Allergies Seasonal Allergies: Yes Past Medical History Breast, Gallbladder High Cholesterol, Hypertension Headaches /Migraines Reproductive Disorders: No Female 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 0.0oz. [id number]; 32.9 BMI Method:Estimated General Appearance: WD/WN, no apparent distress HEENT: PERRL/EOMI, normal ENT inspection, TMs normal, pharynx normal, other ( Facial selling around eyes. She has been emotional and crying this morning. ) Neck: non-tender, full range of motion, supple, normal inspection Cardiovascular: normal peripheral pulses, regular rate, rhythm, no edema, no gallop, no JVD, no murmur Respiratory: chest non-tender, lungs clear, normal breath sounds, no respiratory distress, no accessory muscle use Gastrointestinal: normal bowel sounds, non tender, soft, no organomegaly, no pulsatile mass Back: normal inspection, no CVA tenderness, no vertebral tenderness Extremities: normal range of motion, non-tender, no pedal edema, no calf tenderness, normal capillary refill Psychiatric: alert, oriented x 3 Crainal Nerves: normal hearing, normal speech Coordination/Gait: normal finger to nose Motor/Sensory: no motor deficit Skin: normal color, warm/dry Comments NIH:0 Progress/Results/Core Measures Results/Orders Lab Results Laboratory Tests Test 03/27/18 11:20 03/27/18 12:10 Range/Units White Blood Count 8.4 4.3-11.0 10^3/uL Red Blood Count 4.86 4.35-5.85 10^6/uL Hemoglobin 15.2 11.5-16.0 G/DL Hematocrit 41 35-52 % Mean Corpuscular Volume 84 80-99 FL Mean Corpuscular Hemoglobin 31 25-34 PG Mean Corpuscular Hemoglobin Concent 37 H 32-36 G/DL Red Cell Distribution Width 13.5 10.0-14.5 % Platelet Count 284 130-400 10^3/uL Mean Platelet Volume 8.9 7.4-10.4 FL Neutrophils (%) (Auto) 62 42-75 % Lymphocytes (%) (Auto) 29 12-44 % Monocytes (%) (Auto) 8 0-12 % Eosinophils (%) (Auto) 0 0-10 % Basophils (%) (Auto) 1 0-10 % Neutrophils # (Auto) 5.2 1.8-7.8 X 10^3 Lymphocytes # (Auto) 2.5 1.0-4.0 X 10^3 Monocytes # (Auto) 0.7 0.0-1.0 X 10^3 Eosinophils # (Auto) 0.0 0.0-0.3 10^3/uL Basophils # (Auto) 0.0 0.0-0.1 10^3/uL Sodium Level 141 135-145 MMOL/L Potassium Level 3.9 3.6-5.0 MMOL/L Chloride Level 106 98-107 MMOL/L Carbon Dioxide Level 22 21-32 MMOL/L Anion Gap 13 5-14 MMOL/L Blood Urea Nitrogen 8 7-18 MG/DL Creatinine 0.69 0.60-1.30 MG/DL Estimat Glomerular Filtration Rate > 60 BUN/Creatinine Ratio 12 Glucose Level 110 H 70-105 MG/DL Calcium Level 9.7 8.5-10.1 MG/DL Corrected Calcium 9.4 8.5-10.1 MG/DL Magnesium Level 2.0 1.8-2.4 MG/DL Total Bilirubin 0.5 0.1-1.0 MG/DL Aspartate Amino Transf (AST/SGOT) 18 5-34 U/L Alanine Aminotransferase (ALT/SGPT) 25 0-55 U/L Alkaline Phosphatase 81 40-136 U/L Troponin I < 0.30 <0.30 NG/ML B-Type Natriuretic Peptide 63.9 <100.0 PG/ML Total Protein 7.6 6.4-8.2 GM/DL Albumin 4.4 3.2-4.5 GM/DL Thyroid Stimulating Hormone (TSH) 1.00 0.35-4.94 UIU/ML Free Thyroxine 1.05 0.70-1.48 NG/DL Urine Color YELLOW Urine Clarity SLIGHTLY CLOUDY Urine pH 6 5-9 Urine Specific [place] 1.010 L 1.016-1.022 Urine Protein NEGATIVE NEGATIVE Urine Glucose (UA) NEGATIVE NEGATIVE Urine Ketones NEGATIVE NEGATIVE Urine Nitrite NEGATIVE NEGATIVE Urine Bilirubin NEGATIVE NEGATIVE Urine Urobilinogen NORMAL NORMAL MG/DL Urine Leukocyte Esterase 3+ H NEGATIVE Urine RBC (Auto) 1+ H NEGATIVE Urine RBC 2-5 H /HPF Urine WBC 50-100 H /HPF Urine Squamous Epithelial Cells 0-2 /HPF Urine Crystals NONE /LPF Urine Bacteria FEW H /HPF Urine Casts NONE /LPF Urine Mucus NEGATIVE /LPF Urine Culture Indicated YES Urine Opiates Screen NEGATIVE NEGATIVE Urine Oxycodone Screen NEGATIVE NEGATIVE Urine Methadone Screen NEGATIVE NEGATIVE Urine Propoxyphene Screen NEGATIVE NEGATIVE Urine Barbiturates Screen NEGATIVE NEGATIVE Ur Tricyclic Antidepressants Screen NEGATIVE NEGATIVE Urine Phencyclidine Screen NEGATIVE NEGATIVE Urine Amphetamines Screen NEGATIVE NEGATIVE Urine Methamphetamines Screen NEGATIVE NEGATIVE Urine Benzodiazepines Screen POSITIVE H NEGATIVE Urine Cocaine Screen NEGATIVE NEGATIVE Urine Cannabinoids Screen POSITIVE H NEGATIVE Micro Results Microbiology 03/27/18 Urine Culture - Final, Complete See Report My Orders Orders - BERNOT,DUNIA Comprehensive Metabolic Panel (03/27/18 10:53) Ua Culture If Indicated (03/27/18 10:53) Saline Lock/Iv-Start (03/27/18 10:53) Cbc With Automated Diff (03/27/18 10:53) Ekg Tracing (03/27/18 10:53) Drug Screen Stat (Urine) (03/27/18 10:53) Ct Head Wo-R/O Stroke (03/27/18 11:01) Magnesium (03/27/18 11:01) Cardiac Profile 1 (03/27/18 11:01) Thyroid Stimulating Hormone (03/27/18 11:01) Free T4 (Free Thyroxine) (03/27/18 11:01) BNP (03/27/18 11:04) Lorazepam Injection (Ativan Injection) (03/27/18 11:30) Metoprolol Tartrate Injection (Lopressor (03/27/18 11:30) Urine Culture (03/27/18 12:10) Ketorolac Injection (Toradol Injection) (03/27/18 12:30) Prochlorperazine Injection (Compazine In (03/27/18 12:30) Diphenhydramine Injection (Benadryl Inje (03/27/18 12:30) Clonidine Tablet (Catapres Tablet) (03/27/18 13:15) Medications Given in ED Vital Signs/I&O 03/27/18 03/27/18 10:50 14:24 Temp 97.8 Pulse 70 65 Resp 34 12 B/P (MAP) 188/108 (134) 122/86 (98) Pulse Ox 100 98 Progress Progress Note : Time: 13:49 Progress Note I spoke to Dr. Boateng at this time. I've informed her of the patient's normal imaging and laboratory findings. She agrees that the patient can be discharged home with a close follow-up with [facility]. She is going to make the patient appointment within the week for close follow-up. The patient's migraine symptoms have subsided. Her blood pressure has improved and is currently 146/ 85. She is much more relaxed at this time and no longer emotional. I will be refilling her blood pressure prescription for lisinopril HCTZ for a one-week supply to get her through until her appointment at [facility]. Dr. Boateng reports that they will fill the prescription at [facility] if the patient is unable to afford her medications. Patient agrees with plans of care, plans for discharge, return precautions were given. Voices no questions or concerns. EKG : EKG Time: 11:20 Rate: 74 Rhythm: Normal Sinus Intervals: Normal ECG Comparisson: No Previous ECG Available ECG Impression: Normal Diagnostic Imaging Diagonstic Imaging: CT Plain Films/CT/US/NM/MRI: head Comments NAME: LUCERO SPANN [facility] REC#: [id number] PHYSICIAN: DUNIA KATE CC: DUNIA KATE; ANTONIA CARIAS MD Page 1 of 1 RADIOLOGY REPORT VIA [place], [place] CC: DUNIA KATE; ANTONIA CARIAS MD Page 1 of 1 RADIOLOGY REPORT NAME: LUCERO SPANN [facility] REC#: [id number] PT STATUS: DEP ER : 1965 PHYSICIAN: DUNIA KATE ADMIT DATE: 03/27/18/ER Signed Date of Exam: 03/27/18 CT HEAD WO-R/O STROKE INDICATION: Severe headache. Comparison is made to study of 09/22/2015. CT HEAD: Multiple contiguous axial CT images of the head were obtained. FINDINGS: Ventricles and sulci are within normal limits for size. There is no intracranial hemorrhage identified. There is no abnormal mass effect or shift of midline structures. IMPRESSION: Unremarkable CT of the head. Dictated by: Dictated on workstation # [id number] Dict: 03/27/18 1121 Trans: 03/27/181718 Interpreted by: ANTONIA CARIAS MD Electronically signed by: ANTONIA CARIAS MD 03/27/181718 Reviewed: Reviewed by Me Departure Impression Primary Impression: Migraine Additional Impressions: Urinary tract infection Uncontrolled hypertension Disposition: 01 HOME, SELF-CARE Condition: Stable/Unchanged Departure-Patient Inst. Decision time for Depature: 13:59 Referrals: ERIC BINGHAM MD (PCP/Family) Primary Care Physician Patient Instructions: High Blood Pressure (DC), Migraine Headache (DC), Urinary Tract Infection, Adult (DC) Add. Discharge Instructions: Take medications as directed. Take your prescriptions to [facility] pharmacy and they will fill them for you this time. Keep your phone close because [facility] will be calling you for an appointment time for this week. Return back to the emergency room for any worsening symptoms or concerns as needed. All discharge instructions reviewed with patient and/or family. Voiced understanding. Scripts No Active Prescriptions or Reported Meds Work/School Note: Work Release Form Date Seen in the Emergency Department: Mar 27, 2018 Return to Work: Mar 28, 2018 Restrictions: No Restrictions DUNIA KATE Mar 27, 2018 13:42
[2018-03-27] MEDS ORDERED: LISI1TAB10 PO (14:02)
[2018-03-27] MEDS ORDERED: SULF1TAB35 PO (14:02)
[2018-03-27 14:24] VITALS: BP 122/86
== END 2018-03-27 14:24 | disposition home or self-care (01) ==
LOC: EDUNIT# 10:23 → ER 10:24
DX: G43.909 Migraine, unspecified, not intractable, without status migrainosus (principal); N39.0 Urinary tract infection, site not specified; I10 Essential (primary) hypertension; E78.00 Pure hypercholesterolemia, unspecified; K21.9 Gastro-esophageal reflux disease without esophagitis; F41.9 Anxiety disorder, unspecified; F31.9 Bipolar disorder, unspecified; Z87.19 Personal history of other diseases of the digestive system; Z87.448 Personal history of other diseases of urinary system; Z88.0 Allergy status to penicillin
CPT/HCPCS: 36415; 70450; 80053; 80306; 81000; 83735; 83880; 84439; 84443; 84484; 85025; 87088; 93005; 96374; 96375

== ENCOUNTER 2018-10-27 10:42 | Observation (INO) | payer SELFPAY ==
[~2018-10-27] VITALS: Ht 157.5 cm; Wt 97.1 kg
[~2018-10-27 10:42] MED LIST changes: -AMLO10TA6; +AMLO10TA7; +SULF1TAB35 PO
[2018-10-27] MEDS ORDERED: NS IV 1000 ML 1,000 ML IV SCH ×2 (11:15→13:00)
[2018-10-27] MEDS ORDERED: PROMETHAZINE INJ 25 MG/ML (PHENERGAN) AMP IVP ONE (11:15)
[2018-10-27 11:17] LABS: BASOPHILS # (AUTO) 0.1 10^3/uL (0.0-0.1); BASOPHILS % (AUTO) 1 % (0-10); EOSINOPHILS % (AUTO) 0 % (0-10); HEMATOCRIT 41 % (35-52); HEMOGLOBIN 14.9 G/DL (11.5-16.0); LYMPHOCYTES # (AUTO) 2.9 X 10^3 (1.0-4.0); LYMPHOCYTES % (AUTO) 33 % (12-44); MEAN CORPUSCULAR HEMOGLOBIN 31 PG (25-34); MEAN CORPUSCULAR HGB CONC 37 G/DL (32-36); MEAN CORPUSCULAR VOLUME 85 FL (80-99); MEAN PLATELET VOLUME 8.5 FL (7.4-10.4); MONOCYTES # (AUTO) 0.7 X 10^3 (0.0-1.0); MONOCYTES % (AUTO) 8 % (0-12); NEUTROPHILS # (AUTO) 5.2 X 10^3 (1.8-7.8); NEUTROPHILS % (AUTO) 59 % (42-75); PLATELET COUNT 451 10^3/uL (130-400); RED CELL DISTRIBUTION WIDTH 13.6 % (10.0-14.5); WHITE BLOOD COUNT 8.8 10^3/uL (4.3-11.0)
[2018-10-27 11:28] LABS: PROTHROMBIN TIME PATIENT 13.5 SEC (12.2-14.7)
[2018-10-27 11:35] LABS: ALANINE AMINOTRANSFERASE 19 U/L (0-55); ALBUMIN 4.6 GM/DL (3.2-4.5); ALKALINE PHOSPHATASE 73 U/L (40-136); AMYLASE 47 U/L (25-125); BUN/CREATININE RATIO 20; CALCIUM 10.5 MG/DL (8.5-10.1); CARBON DIOXIDE 24 MMOL/L (21-32); CHLORIDE 95 MMOL/L (98-107); CREATININE SERUM 0.95 MG/DL (0.60-1.30); GFR ESTIMATED > 60; GLUCOSE 108 MG/DL (70-105); LIPASE 22 U/L (8-78); POTASSIUM 3.3 MMOL/L (3.6-5.0); SODIUM 134 MMOL/L (135-145); TOTAL PROTEIN 7.9 GM/DL (6.4-8.2)
--- NOTE | 2018-10-27 11:37 | Diagnostic Imaging Report ---
INDICATION: Upper abdominal pain. COMPARISON is made to study of 12/31/2012. FINDINGS: Overall heart size and pulmonary vascularity are within normal limits. There is no pneumothorax or consolidation. There is no significant pleural fluid. IMPRESSION: No acute abnormality is detected. Dictated by: Dictated on workstation # [id number]
--- NOTE | 2018-10-27 11:48 | ED Abdominal Pain ---
General Chief Complaint: Abdominal/GI Problems Stated Complaint: UPPER ABD PAIN;NAUSEA;CP Nursing Triage Note: PATIENT STATES THAT SHE HAS BEEN HAVING UPPER ABDOMINAL PAIN AND NAUSEA X1 WEEK OR MORE. SHE STATES IT IS A STABBING PAIN THAT IS ONLY SLIGHTLY RELIEVED BY BEING STILL. SHE STATES THAT SHE HAS HAD ABDOMINAL PAINS IN THE PAST AND HAS ZOFRAN BUT IT DOES NOT HELP. Sepsis Screen: No Definite Risk Source of Information: Patient Exam Limitations: No Limitations History of Present Illness Date Seen by Provider: October 27, 2018 Time Seen by Provider: 11:05 Initial Comments 53-year-old female who presents to the emergency room with complaints of epigastric abdominal pain, nausea, vomiting, constipation for the past week. She reports the pain is stabbing at times and is only improved by immobility. She was prescribed Zofran for her nausea but has not helped. She denies fevers. Timing/Duration: 1 Week Severity/Quality: Cramping, Sharp Location: Epigastric Radiation: No Radiation Associated Symptoms: Nausea/Vomiting Allergies and Home Medications Allergies Coded Allergies: Penicillins (Unverified Allergy, Mild, hives, 01/28/09) Home Medications Fluticasone Propionate 9.9 Ml [place].susp, 2 SPRAY NS DAILY PRN for ALLERGIES, (Reported) Ibuprofen 200 Mg Tablet, 600-800 MG PO TID PRN for PAIN-MILD, (Reported) Levothyroxine Sodium 50 Mcg Tablet, 50 MCG PO DAILY, (Reported) Lisinopril/Hydrochlorothiazide 1 Each Tablet, 1 TAB PO DAILY, (Reported) Loratadine 10 Mg Tablet, 10 MG PO DAILY, (Reported) Omeprazole 20 Mg Capsule.dr, 20 MG PO DAILY PRN for HEARTBURN, (Reported) Ondansetron 4 Mg Tab.rapdis, 4 MG PO Q4H PRN for NAUSEA/VOMITING-1ST LINE, (Reported) Patient Home Medication List Home Medication List Reviewed: Yes Review of Systems Review of Systems Constitutional: see HPI; No chills, No fever Gastrointestinal: See HPI, Abdominal Pain (epigastric pain), Constipated, Nausea, Vomiting All Other Systems Reviewed Negative Unless Noted: Yes Past Xgzokar-Cstgnq-Lredru Hx Past Med/Social Hx: Reviewed Nursing Past Med/Soc Hx Patient Social History Recent Foreign Travel: No Contact w/Someone Who Travel: No Recent Infectious Disease Expo: No Recent Hopitalizations: No Seasonal Allergies Seasonal Allergies: Yes Past Medical History Surgeries: Yes Breast, Gallbladder Respiratory: No Cardiac: Yes High Cholesterol, Hypertension Neurological: Yes Headaches /Migraines Reproductive Disorders: No Female Reproductive Disorders: 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 Sexually Transmitted Disease: No Gastrointestinal: Yes Gastroesophageal Reflux, Chronic Constipation, Ulcer, Gall Bladder Disease, Irritable Bowel Musculoskeletal: Yes (CHRONIC GENERALIZED PAIN) Arthritis Endocrine: No Glaucoma Hearing Impairment: Denies Cancer: Yes Colon Psychosocial: Yes Sleep Difficulties, Anxiety, Bipolar, Depression Integumentary: No Blood Disorders: No Adverse Reaction/Blood Tranf: No Family Medical History Reviewed Nursing Family Hx Physical Exam Vital Signs Vital Signs - First Documented 10/27/18 10:45 Temp 98.8 Pulse 85 Resp 20 B/P (MAP) 125/91 (102) Pulse Ox 99 Capillary Refill : Less Than 3 Seconds Height/Weight/BMI Height: 5'2.00" Weight: 210lbs. 0oz. 95.830303ar; 32.9 BMI Method:Stated General Appearance: WD/WN, no apparent distress Respiratory: chest non-tender, lungs clear, normal breath sounds, no respiratory distress, no accessory muscle use Cardiovascular: normal peripheral pulses, regular rate, rhythm, no edema, no gallop, no JVD, no murmur Gastrointestinal: normal bowel sounds, soft, no organomegaly, no pulsatile mass, tenderness (generalized abdominal tenderness.) Extremities: normal capillary refill Neurologic/Psychiatric: alert, normal mood/affect, oriented x 3 Skin: normal color, warm/dry Progress/Results/Core Measures Results/Orders Lab Results Laboratory Tests Test 10/27/18 10:50 10/27/18 12:35 Range/Units White Blood Count 8.8 4.3-11.0 10^3/uL Red Blood Count 4.80 4.35-5.85 10^6/uL Hemoglobin 14.9 11.5-16.0 G/DL Hematocrit 41 35-52 % Mean Corpuscular Volume 85 80-99 FL Mean Corpuscular Hemoglobin 31 25-34 PG Mean Corpuscular Hemoglobin Concent 37 H 32-36 G/DL Red Cell Distribution Width 13.6 10.0-14.5 % Platelet Count 451 H 130-400 10^3/uL Mean Platelet Volume 8.5 7.4-10.4 FL Neutrophils (%) (Auto) 59 42-75 % Lymphocytes (%) (Auto) 33 12-44 % Monocytes (%) (Auto) 8 0-12 % Eosinophils (%) (Auto) 0 0-10 % Basophils (%) (Auto) 1 0-10 % Neutrophils # (Auto) 5.2 1.8-7.8 X 10^3 Lymphocytes # (Auto) 2.9 1.0-4.0 X 10^3 Monocytes # (Auto) 0.7 0.0-1.0 X 10^3 Eosinophils # (Auto) 0.0 0.0-0.3 10^3/uL Basophils # (Auto) 0.1 0.0-0.1 10^3/uL Prothrombin Time 13.5 12.2-14.7 SEC INR Comment 1.0 0.8-1.4 Activated Partial Thromboplast Time 35 24-35 SEC Sodium Level 134 L 135-145 MMOL/L Potassium Level 3.3 L 3.6-5.0 MMOL/L Chloride Level 95 L 98-107 MMOL/L Carbon Dioxide Level 24 21-32 MMOL/L Anion Gap 15 H 5-14 MMOL/L Blood Urea Nitrogen 19 H 7-18 MG/DL Creatinine 0.95 0.60-1.30 MG/DL Estimat Glomerular Filtration Rate > 60 BUN/Creatinine Ratio 20 Glucose Level 108 H 70-105 MG/DL Calcium Level 10.5 H 8.5-10.1 MG/DL Corrected Calcium 8.5-10.1 MG/DL Magnesium Level 2.0 1.8-2.4 MG/DL Total Bilirubin 1.0 0.1-1.0 MG/DL Aspartate Amino Transf (AST/SGOT) 15 5-34 U/L Alanine Aminotransferase (ALT/SGPT) 19 0-55 U/L Alkaline Phosphatase 73 40-136 U/L Myoglobin 47.6 10.0-92.0 NG/ML Troponin I < 0.028 <0.028 NG/ML Total Protein 7.9 6.4-8.2 GM/DL Albumin 4.6 H 3.2-4.5 GM/DL Amylase Level 47 25-125 U/L Lipase 22 8-78 U/L Urine Color YELLOW Urine Clarity CLEAR Urine pH 5 5-9 Urine Specific [place] 1.010 L 1.016-1.022 Urine Protein NEGATIVE NEGATIVE Urine Glucose (UA) NEGATIVE NEGATIVE Urine Ketones NEGATIVE NEGATIVE Urine Nitrite NEGATIVE NEGATIVE Urine Bilirubin NEGATIVE NEGATIVE Urine Urobilinogen NORMAL NORMAL MG/DL Urine Leukocyte Esterase 1+ H NEGATIVE Urine RBC (Auto) NEGATIVE NEGATIVE Urine RBC NONE /HPF Urine WBC RARE /HPF Urine Squamous Epithelial Cells 5-10 /HPF Urine Crystals NONE /LPF Urine Bacteria NEGATIVE /HPF Urine Casts NONE /LPF Urine Mucus NEGATIVE /LPF Urine Culture Indicated NO My Orders Orders - DUNIA KATE Comprehensive Metabolic Panel (10/27/18 11:08) Lipase (10/27/18 11:08) Amylase (10/27/18 11:08) Ua Culture If Indicated (10/27/18 11:08) Ed Iv/Invasive Line Start (10/27/18 11:08) Cbc With Automated Diff (10/27/18 11:08) Magnesium (10/27/18 11:08) Chest 1 View, Ap/Pa Only (10/27/18 11:08) Ekg Tracing (10/27/18 11:08) Cardiac Profile 1 (10/27/18 11:08) Myoglobin Serum (10/27/18 11:08) Protime With Inr (10/27/18 11:08) Partial Thromboplastin Time (10/27/18 11:08) O2 (10/27/18 11:08) Monitor-Rhythm Ecg Trace Only (10/27/18 11:08) Lipid Panel (10/28/18 06:00) Promethazine Injection (Phenergan Injec (10/27/18 11:15) Ns Iv 1000 Ml (Sodium Chloride 0.9%) (10/27/18 11:15) Ct Abdomen/Pelvis W (10/27/18 11:48) Ns Iv 1000 Ml (Sodium Chloride 0.9%) (10/27/18 13:00) Fentanyl Injection (Sublimaze Injection (10/27/18 13:30) Ondansetron Injection (Zofran Injectio (10/27/18 13:30) Medications Given in ED Current Medications Medications Dose Ordered Sig/Tamia Route Start Time Stop Time Status Last Admin Dose Admin Fentanyl Citrate 50 mcg ONCE ONCE IVP 10/27/18 13:30 10/27/18 13:31 DC 10/27/18 13:39 50 MCG Ondansetron HCl 8 mg ONCE ONCE IVP 10/27/18 13:30 10/27/18 13:31 DC 10/27/18 13:39 8 MG Promethazine HCl 25 mg ONCE ONCE IVP 10/27/18 11:15 10/27/18 11:16 DC 10/27/18 11:21 25 MG Vital Signs/I&O 10/27/18 10:45 Temp 98.8 Pulse 85 Resp 20 B/P (MAP) 125/91 (102) Pulse Ox 99 Blood Pressure Mean: 102 Diagnostic Imaging Diagonstic Imaging: Xray, CT Plain Films/CT/US/NM/MRI: chest Comments NAME: LUCERO SPANN [facility] REC#: [id number] PT STATUS: ADM Carlos : 1965 PHYSICIAN: DUNIA KATE ADMIT DATE: 10/27/18 Signed Date of Exam: 10/27/18 CT ABDOMEN/PELVIS W PROCEDURE: CT abdomen and pelvis with contrast. TECHNIQUE: Multiple contiguous axial images were obtained through the abdomen and pelvis after administration of intravenous contrast. Auto Exposure Controls were utilized during the CT exam to meet ALARA standards for radiation dose reduction. INDICATION: Abdominal pain for three days. COMPARISON: 11/08/2015. FINDINGS: The lung bases are clear. The heart is normal in size. There is no pericardial effusion. The liver demonstrates no focal lesions. Cholecystectomy clips are noted. The pancreas appears normal. The spleen is normal. The adrenal glands appear normal. The kidneys appear normal with no hydronephrosis. There is a small hiatal hernia. There is a mildly prominent loop of small bowel in the left abdomen measuring up to 3 cm in diameter. No significant transition point is seen. There is wall thickening seen in the colon, particularly the ascending colon, hepatic flexure, and proximal transverse colon. Mild additional wall thickening is seen in the descending and sigmoid colon. There is diverticulosis without diverticulitis. No significant free fluid or free air is seen. No acute osseous abnormality is seen. IMPRESSION: 1. Findings consistent with colitis, likely infectious or inflammatory. 2. Single loop of small bowel is mildly prominent, most likely due to focal ileus. 3. Small hiatal hernia. Dictated by: Dictated on workstation # [id number] Dict: 10/27/18 1257 Trans: 10/27/18 1532 Interpreted by: ARMOND SUBRAMANIAN MD Electronically signed by: ARMOND SUBRAMANIAN MD 10/27/18 1532 [facility] [place] [place] NAME: LUCERO SPANN [facility] REC#: [id number] PT STATUS: REG ER : 1965 PHYSICIAN: DUNIA KATE ADMIT DATE: 10/27/18/ER Draft Date of Exam:10/27/18 CHEST 1 VIEW, AP/PA ONLY INDICATION: Upper abdominal pain. COMPARISON is made to study of 12/31/2012. FINDINGS: Overall heart size and pulmonary vascularity are within normal limits. There is no pneumothorax or consolidation. There is no significant pleural fluid. IMPRESSION: No acute abnormality is detected. Dictated on workstation # [id number] Dict: 10/27/18 1133 Trans: 10/27/18 1137 [facility] [id number] Interpreted by: ANTONIA CARIAS MD Electronically signed by: Reviewed: Reviewed by Me Departure Communication (Admissions) Time/Spoke to Admitting Phy: 13:55 Dr. Boateng Time/Spoke to Consulting Phy: 13:50 Dr. Khan Impression Primary Impression: Colitis, acute Additional Impression: Ileus Disposition: ADMITTED INPATIENT Condition: Stable/Unchanged Admissions Decision to Admit Reason: Admit from ER (General) Decision to Admit/Date: October 27, 2018 Time/Decision to Admit Time: 14:05 Departure-Patient Inst. Referrals: ERIC BINGHAM MD (PCP/Family) Primary Care Physician DUNIA KATE October 27, 2018 11:48
[2018-10-27 12:44] LABS: BILIRUBIN,URINE NEGATIVE (NEGATIVE); CLARITY,URINE CLEAR; COLOR,URINE YELLOW; GLUCOSE, URINE (UA) NEGATIVE (NEGATIVE); KETONES,URINE NEGATIVE (NEGATIVE); LEUKOCYTE ESTERASE ,URINE 1+ (NEGATIVE); NITRITE,URINE NEGATIVE (NEGATIVE); PH,URINE 5 (5-9); PROTEIN,URINE NEGATIVE (NEGATIVE); UROBILINOGEN,URINE NORMAL (NORMAL)
[2018-10-27 13:07] LABS: BACTERIA,URINE NEGATIVE /HPF; WBC,URINE RARE /HPF
--- NOTE | 2018-10-27 13:10 | Diagnostic Imaging Report ---
PROCEDURE: CT abdomen and pelvis with contrast. TECHNIQUE: Multiple contiguous axial images were obtained through the abdomen and pelvis after administration of intravenous contrast. Auto Exposure Controls were utilized during the CT exam to meet ALARA standards for radiation dose reduction. INDICATION: Abdominal pain for three days. COMPARISON: 11/08/2015. FINDINGS: The lung bases are clear. The heart is normal in size. There is no pericardial effusion. The liver demonstrates no focal lesions. Cholecystectomy clips are noted. The pancreas appears normal. The spleen is normal. The adrenal glands appear normal. The kidneys appear normal with no hydronephrosis. There is a small hiatal hernia. There is a mildly prominent loop of small bowel in the left abdomen measuring up to 3 cm in diameter. No significant transition point is seen. There is wall thickening seen in the colon, particularly the ascending colon, hepatic flexure, and proximal transverse colon. Mild additional wall thickening is seen in the descending and sigmoid colon. There is diverticulosis without diverticulitis. No significant free fluid or free air is seen. No acute osseous abnormality is seen. IMPRESSION: 1. Findings consistent with colitis, likely infectious or inflammatory. 2. Single loop of small bowel is mildly prominent, most likely due to focal ileus. 3. Small hiatal hernia. Dictated by: Dictated on workstation # [id number]
[2018-10-27] MEDS ORDERED: fentaNYL INJECTION 100 MCG/2 ML AMP IVP ONE (13:30)
[2018-10-27] MEDS ORDERED: ONDANSETRON 4 MG/2 ML (SDV) Z0FRAN IVP ONE (13:30)
[2018-10-27] MEDS ORDERED: methylPREDNISolone 125 MG (Solu-MEDROL) VIAL IVP ONE (14:15)
--- NOTE | 2018-10-27 15:05 | NUR ---
REPORT RECEIVED FROM MARIO ALBERTO VERGARA.
[2018-10-27] MEDS ORDERED: POTASSIUM CL 10MEQ/50ML IVPB 50 ML IV ONE (15:45)
--- NOTE | 2018-10-27 15:48 | Consultation (Surgery) ---
History of Present Illness History of Present Illness Patient Consulted On(artem/time) 10/27/18 15:41 Time Seen by Provider: 15:21 History of Present Illness Surgery asked to consult regarding Abdominal pain and Colitis. HPI per ED: PATIENT STATES THAT SHE HAS BEEN HAVING UPPER ABDOMINAL PAIN AND NAUSEA X1 WEEK OR MORE. SHE STATES IT IS A STABBING PAIN THAT IS ONLY SLIGHTLY RELIEVED BY BEING STILL. SHE STATES THAT SHE HAS HAD ABDOMINAL PAINS IN THE PAST AND HAS ZOFRAN BUT IT DOES NOT HELP. When I spoke to pt she stated she has had this pain "for months, off and on". She has been to [facility] and treated for viral Gastroenteritis, but nothing has helped the pain except "lying flat and still". She has history of polyp removal by Niki and thinks she had an upper endoscopy, but doesn't remember if they found anything. She has also been having vomiting, with alternating diarrhea and constipation. She states all foods make pain worse, has had her GB removed. Pain is all over her stomach and when it is bad; she rates it as 10 out of 10. Allergies and Home Medications Allergies Coded Allergies: Penicillins (Unverified Allergy, Mild, hives, 01/28/09) Patient Home Medication List Home Medication List Reviewed: Yes Past Vqatdiu-Iobhjr-Rncodl Hx Patient Social History Alcohol Use: Denies Use Recreational Drug Use: Yes (THC) Smoking Status: Never a Smoker 2nd Hand Smoke Exposure: No Recent Foreign Travel: No Contact w/Someone Who Travel: No Recent Infectious Disease Expo: No Recent Hopitalizations: No Seasonal Allergies Seasonal Allergies: Yes Surgeries History of Surgeries: Yes Surgeries: Breast, Gallbladder Respiratory History of Respiratory Disorde: No Cardiovascular History of Cardiac Disorders: Yes Cardiac Disorders: High Cholesterol, Hypertension Neurological History of Neurological Disord: Yes Neurological Disorders: Headaches /Migraines Reproductive System Hx Reproductive Disorders: No Sexually Transmitted Disease: No 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 Gastrointestinal History of Gastrointestinal Di: Yes Gastrointestinal Disorders: Gastroesophageal Reflux, Chronic Constipation, Ulcer, Gall Bladder Disease, Irritable Bowel Musculoskeletal History of Musculoskeletal Dis: Yes (CHRONIC GENERALIZED PAIN) Musculoskeletal Disorders: Arthritis Endocrine History of Endocrine Disorders: No HEENT HEENT Disorders: Glaucoma Hearing Impairment: Denies Cancer History of Cancer: Yes Cancer: Colon Psychosocial History of Psychiatric Problem: Yes Behavioral Health Disorders: Sleep Difficulties, Anxiety, Bipolar, Depression Integumentary History of Skin or Integumenta: No Blood Transfusions History of Blood Disorders: No Adverse Reaction to a Blood Tr: No Family Medical History Significant Family History: Heart Disease (father), Cancer (father of colon cancer), Diabetes (father) Review of Systems-General Constitutional: No chills, No diaphoresis; dizziness, malaise, weakness EENTM: No blurred vision, No double vision, No mouth pain, No mouth swelling, No epistaxis, No throat swelling Respiratory: No cough, No dyspnea on exertion, No hemoptysis Cardiovascular: No chest pain, No edema, No palpitations Gastrointestinal: abdominal pain, constipation, diarrhea, heartburn (?? symptoms, but pt has history of hiatal hernia), nausea, vomiting Musculoskeletal: joint pain, muscle pain, muscle stiffness Skin: No change in color, No change in hair/nails Psychiatric/Neurological: Anxiety, Depressed; Denies Seizure, Denies Tremors Other pt denies any abnormal bleeding or bruising, no heat or cold intolerance Physical Exam-General Problems Physical Exam Vital Signs Vital Signs - First Documented 10/27/18 10:45 Temp 98.8 Pulse 85 Resp 20 B/P (MAP) 125/91 (102) Pulse Ox 99 Capillary Refill : Less Than 3 Seconds General Appearance: mild distress, obese Eyes: Bilateral Eye PERRL, Bilateral Eye EOMI HEENT: PERRL/EOMI, pharynx normal; No scleral icterus (R), No scleral icterus (L) Neck: supple, normal inspection Respiratory: chest non-tender, lungs clear, normal breath sounds, no res piratory distress, no accessory muscle use Cardiovascular: regular rate, rhythm, no murmur Gastrointestinal: normal bowel sounds, soft, no organomegaly, no pulsatile mass, tenderness (diffusely) Back: no CVA tenderness, no vertebral tenderness Extremities: normal range of motion, non-tender, normal inspection, no pedal edema, no calf tenderness 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, no motor/sensory deficits, alert, normal mood/affect, oriented x 3 Skin: normal color, warm/dry Lymphatic: no adenopathy (neck, axilla or groin) Data Review Labs Laboratory Tests 10/27/18 10:50: White Blood Count 8.8, Red Blood Count 4.80, Hemoglobin 14.9, Hematocrit 41, Mean Corpuscular Volume 85, Mean Corpuscular Hemoglobin 31, Mean Corpuscular Hemoglobin Concent 37H, Red Cell Distribution Width 13.6, Platelet Count 451H, Mean Platelet Volume 8.5, Neutrophils (%) (Auto) 59, Lymphocytes (%) (Auto) 33, Monocytes (%) (Auto) 8, Eosinophils (%) (Auto) 0, Basophils (%) (Auto) 1, Neutrophils # (Auto) 5.2, Lymphocytes # (Auto) 2.9, Monocytes # (Auto) 0.7, Eosinophils # (Auto) 0.0, Basophils # (Auto) 0.1, Prothrombin Time 13.5, INR Comment 1.0, Activated Partial Thromboplast Time 35, Sodium Level 134L, Potassium Level 3.3L, Chloride Level 95L, Carbon Dioxide Level 24, Anion Gap 15H , Blood Urea Nitrogen 19H, Creatinine 0.95, Estimat Glomerular Filtration Rate > 60, BUN/Creatinine Ratio 20, Glucose Level 108H, Calcium Level 10.5H, Corrected Calcium , Magnesium Level 2.0, Total Bilirubin 1.0, Aspartate Amino Transf (AST/SGOT) 15, Alanine Aminotransferase (ALT/SGPT) 19, Alkaline Phosphatase 73, Myoglobin 47.6, Troponin I < 0.028, Total Protein 7.9, Albumin 4.6H, Amylase Level 47, Lipase 22 10/27/18 12:35: Urine Color YELLOW, Urine Clarity CLEAR, Urine pH 5, Urine Specific [place] 1.010L, Urine Protein NEGATIVE, Urine Glucose (UA) NEGATIVE, Urine Ketones NEGATIVE, Urine Nitrite NEGATIVE, Urine Bilirubin NEGATIVE, Urine Urobilinogen NORMAL, Urine Leukocyte Esterase 1+H, Urine RBC (Auto) NEGATIVE, Urine RBC NONE, Urine WBC RARE, Urine Squamous Epithelial Cells 5-10, Urine Crystals NONE, Urine Bacteria NEGATIVE, Urine Casts NONE, Urine Mucus NEGATIVE, Urine Culture Indicated NO Assessment/Plan Assessment/Plan Assessment/Plan Abdominal pain -diffuse Colitis Hypokalemia Hyponatremia Pt is being admitted for pain control, I also recommended replacing potassium and increasing fluids. She will be NPO and plan to do an EGD tomorrow morning. She can probably have a colonoscopy as an outpt. Anti-emetics as needed. Discussed the EGD with pt; risks and complications not limited to pain, bleeding, possible esophageal perforation. All questions answered to her satisfaction. Consent written for. PRERNA RICO DO October 27, 2018 15:48
[2018-10-27 15:58] VITALS: BP 127/85
--- NOTE | 2018-10-27 16:00 | NUR ---
LUCERO SPANN admitted to room 408-1, with an admitting diagnosis of COLITIS/ILLEUS, on 10/27/18 from ER via WHEELCHAIR, accompanied by STAFF AND ADULT CHILD.LUCERO SPANN introduced to surroundings, call light, bed controls, phone, TV, temperature control, lights, meal times, smoking policy, visitor policy, side rail policy, bathrooms and showers. Patient Rights given to patient in the handbook. LUCERO SPANN verbalizes understanding that [facility] is not responsible for the loss or damage to any personal effects or valuables that are kept in the patients posession during their hospitalization. LUCERO SPANN verbalizes understanding of Interdisciplinary Patient Education. Patient and/or family were informed about the Rapid Response Team and its purpose.
--- OUTSIDE RECORDS SUMMARY | 2018-10-27 16:00 | XMS REPORT | Clinical Summary ---
Author Author [facility] Organization [facility] Address Unknown Phone Unavailable Care Team Providers Care Stripe Marker Name Role Phone PCP Unavailable Allergies Not on File Current Medications Not on file Active Problems Not on file Social History Tobacco Use Types Packs/Day Years Used Date Never Assessed Sex Assigned at Date Recorded Not on file Last Filed Vital Signs Not on file Plan of Treatment Not on file Results Not on filefrom Last 3 Months
[2018-10-27 16:01] VITALS: BP 127/85
--- OUTSIDE RECORDS SUMMARY | 2018-10-27 16:01 | XMS REPORT ---
Author Author Migration, Doctor Organization [facility] Address Unknown Phone Unavailable Care Team Providers Care X Ray Equipment Tester Name Role Phone Migration, Doctor Unavailable Unavailable PROBLEMS Type Condition ICD9-CM Code [id number] Code Onset Dates Condition Status SNOMED Code Problem Unspecified open-angle glaucoma, stage unspecified H40.10X0 Feb, Active 48499137 Problem Unspecified epilepsy without mention of intractable epilepsy G40.909 Active 65185817 Problem Nondependent 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 Active 971944079 Problem Hypertension I10 Active 98447344 Problem Other chronic pain G89.29 Active 372441681 Problem Rheumatoid arthritis M06.9 Active 07479024 Problem Hyperlipidemia, unspecified E78.5 Active 01623147 Problem Acquired hypothyroidism E03.9 Active 761833719 Problem Goiter E04.9 Active 3780555 Problem Presbyopia H52.4 Active 74370756 Problem Arthralgia M25.50 Active 00050005 Problem Right-sided low back pain without sciatica M54.5 Active 649425862 Problem Anxiety disorder, unspecified F41.9 Active 806752825 Problem Insomnia G47.00 Active 869358713 Problem Neuropathy G62.9 Active 888308021 Problem Thyroid nodule E04.1 Active 994279461 Problem Multinodular goiter E04.2 Active 969293361 Problem Chronic tension-type headache, intractable G44.221 Active 980765379 Problem Cough R05 Active 57972714 Problem Carpal tunnel syndrome of left wrist G56.02 Active 125191751860266 Problem Chronic obstructive pulmonary disease, unspecified COPD type J44.9 Active 71793630 Problem COPD with exacerbation J44.1 Active 950554183 Problem Depressive disorder F32.9 Active 46473045 Problem Seasonal allergic rhinitis due to pollen J30.1 Active 14981312 Problem Esophageal reflux K21.9 Active 978550311 Problem Depression F32.9 Active 73161130 Problem BMI 40.0-44.9, adult Z68.41 Active 091054086 Problem Reactive airway disease without complication, unspecified asthma severity, unspecified whether persistent J45.909 Active 574329911082 Problem Urge incontinence of urine N39.41 Active 76369534 Problem Abnormal laboratory test R89.9 Active 273518815 ALLERGIES No Information ENCOUNTERS Encounter Location Date Diagnosis [facility] [id number] [place] [address] October, [facility] [address] [address] Sep, Generalized abdominal pain R10.84 ; Morbid obesity E66.01 ; Non-intractable vomiting with nausea, unspecified vomiting type R11.2 and Seasonal allergic rhinitis due to pollen J30.1 [facility] [id number] [place] [address] Jul, COPD with exacerbation J44.1 ; Viral upper respiratory tract infection J06.9 and Morbid obesity E66.[address] [facility] [place] [id number] [place] [address] Jun, Viral upper respiratory tract infection J06.9 [place] [address] [address] Apr, Abnormal laboratory test R89.9 [place] [id number] [place] [address] Apr, Abnormal laboratory test R89.9 [place] [id number] [place] [address] Apr, Abnormal laboratory test R89.9 [place] [id number] [place] [address] Apr, [place] [id number] [place] [address] Apr, [place] [id number] [place] [address] Apr, Nonintractable episodic headache, unspecified headache type R51 ; Urge incontinence of urine N39.41 ; BMI 40.0-44.9, adult Z68.41 ; Myalgia M79.10 and Acute cystitis without hematuria N30.00 [place] [id number] [place] [address] 31 Mar, 2018 Nasal congestion R09.81 ; Low back pain M54.5 ; Reactive airway disease without complication, unspecified asthma severity, unspecified whether persistent J45.909 ; Other chronic pain G89.29 ; Acute cystitis with hematuria N30.01 and BMI 40.0-44.9, adult Z68.41 [facility] [id number] [place] [address] Mar, Acute cystitis with hematuria N30.[address] [facility] [id number] [place] [address] Mar, BMI 40.0-44.9, adult Z68.41 ; Acute cystitis with hematuria N30.01 ; Acute bilateral low back pain without sciatica M54.5 and Nausea R11.0 [place] [id number] [place] [address] Mar, Hypertension I10 ; Acquired hypothyroidism E03.9 ; Esophageal reflux K21.9 ; Chronic obstructive pulmonary disease, unspecified COPD type J44.9 and BMI 40.0-44.9, adult Z68.41 [place] [id number] [place] [address] Mar, Hypertension I10 [place] [id number] [place] [address] Nov, Hyperlipidemia, unspecified E78.5 [place] [id number] [place] [address] October, Chest pain, unspecified type R07.9 and Acquired hypothyroidism E03.9 [place] [id number] [place] [address] October, Chest pain, unspecified type R07.9 ; Family history of coronary artery disease Z82.49 ; Carpal tunnel syndrome of left wrist G56.02 ; Hypertension I10 ; Esophageal reflux K21.9 ; Arthralgia M25.50 ; Acquired hypothyroidism E03.9 ; Cough R05 ; Nausea R11.0 ; Weight gain R63.5 and BMI 45.0-49.9, adult Z68.42 [place] [address] [address] Jun, Acquired hypothyroidism E03.9 and Cough R05 [place] [address] [address] May, [address] [address] Feb, Tarsal tunnel syndrome of both lower extremities G57.53 and Neuropathy G62.[address] [address] Dec, Pleuritis R09.1 [place] [address] [address] Nov, [place] [address] [address] October, Arthralgia, unspecified joint M25.50 and Allergy, initial encounter T78.40XA [place] [address] [address] October, [place] [address] [address] October, Acute recurrent maxillary sinusitis J01.01 and Arthralgia M25.50 [place] [address] [address] Sep, Pharyngitis due to other organism J02.8 [place] [address] [address] Aug, Acute nasopharyngitis J00 [place] [address] [address] Aug, Multinodular goiter E04.2 [place] [address] [address] Aug, Thyroid nodule E04.1 [place] [id number] [place] [address] 17 Jul, 2016 Tarsal tunnel syndrome of both lower extremities G57.53 [place] [address] [address] Jun, Pneumonia due to infectious organism, unspecified laterality, unspecified part of lung J18.[address] [address] Jun, Bronchospasm with bronchitis, acute J20.9 [place] [id number] [place] [address] May, Acute non-recurrent frontal sinusitis J01.10 [place] [id number] [place] [address] May, Flat foot [pes planus] (acquired), left foot M21.42 ; Flat foot [pes planus] (acquired), right foot M21.41 and Neuropathy G62.9 [place] [id number] [place] [address] Apr, Chronic tension-type headache, intractable G44.221 ; Right lower quadrant abdominal pain R10.31 ; Cervicalgia M54.2 ; Acute gastritis without hemorrhage, unspecified gastritis type K29.00 and Hypertension I10 [place] [id number] [place] [address] Mar, Depression F32.9 and Anxiety disorder, unspecified F41.9 [place] [id number] [place] [address] Feb, Depressive disorder F32.9 and Anxiety disorder, unspecified F41.9 [place] [id number] [place] [address] Jan, Dysuria R30.0 ; Lower abdominal pain R10.30 ; Acute bilateral low back pain without sciatica M54.5 ; Nausea and vomiting, unspecified intactability, vomiting of unspecified type R11.2 ; Pain in right foot M79.671 and Pain of left foot M79.672 [place] [id number] [place] [address] Dec, Urinary tract infection, site not specified N39.0 [place] [id number] [place] [address] Dec, [place] [id number] [place] [address] Nov, [place] [id number] [place] [address] Nov, Dysuria R30.0 [place] [id number] [place] [address] Nov, Dysuria R30.0 and Acute cystitis with hematuria N30.01 [place] [id number] [place] [address] October, Nausea R11.0 [place] [id number] [place] [address] October, Thyroid nodule E04.1 ; Carpal tunnel syndrome, left upper limb G56.02 ; Carpal tunnel syndrome, right upper limb G56.01 and Constipation, unspecified constipation type K59.00 [place] [id number] [place] [address] October, [place] [id number] [place] [address] October, Thyroid nodule E04.1 [place] [id number] [place] [address] October, Cold thyroid nodule E04.1 [place] [id number] [place] [address] October, [place] [address] [address] Sep, Thyroid nodule E04.1 [place] [address] [address] Sep, Thyroid nodule E04.1 [place] [address] [address] Sep, Thyroid nodule E04.1 ; Hypertension I10 ; Esophageal reflux K21.9 and Hyperlipidemia, unspecified E78.5 [place] [address] [address] Aug, Other chronic pain G89.29 ; Sinusitis J32.9 and Hypertension I10 [place] [address] [address] Jul, [place] [address] [address] 15 Jul, 2015 [place] [address] [address] Jul, Insomnia G47.00 and Arthralgia M25.50 [place] [address] [address] 10 Jul, 2015 Depressive disorder F32.9 and Anxiety disorder, unspecified F41.9 [place] [address] [address] May, Right-sided low back pain without sciatica M54.5 and Depression F32.9 [place] [address] [address] Apr, Hematuria R31.9 [place] [address] [address] Mar, Other chronic pain G89.29 [facility] [address] [address] Mar, Other chronic pain G89.29 [facility] [id number] [place] [address] Feb, [facility] [address] [address] Feb, Other chronic pain 338.29 ; Dysuria 788.1 ; UTI (urinary tract infection) 599.0 ; Insomnia 780.52 ; Hot flashes 627.2 and Hypertension 401.9 [facility] [id number] [place] [address] 14 Feb, 2015 Dysuria 788.1 [facility] [address] [place] [address] Feb, [facility] [id number] [place] [address] Jan, [facility] [address] [address] Jan, [facility] [id number] [place] [address] Jan, Fibromyalgia 729.1 ; Hypertension 401.9 ; Dysthymia 300.4 and Hot flashes 627.2 [facility] [address] [address] Dec, [facility] [address] [address] Dec, [facility] [id number] [place] [address] Dec, [facility] [address] [address] Nov, Other chronic pain 338.29 [facility] [id number] [place] [address] October, [facility] [place] [facility] [address] [id number] [place] [address] October, [facility] [place] [facility] [address] [id number] [place] [address] 14 Sep, 2014 [facility] [place] [facility] [address] [id number] [place] [address] Sep, [facility] [place] [facility] [address] [id number] [place] [address] Aug, [facility] [place] [facility] [address] [id number] [place] [address] Aug, [facility] [place] [facility] [address] [id number] [place] [address] Aug, [facility] [place] [facility] [address] [id number] [place] [address] Aug, [facility] [place] [facility] [address] [id number] [place] [address] Aug, [facility] [place] [facility] [address] [id number] [place] [address] Aug, [facility] [place] [facility] [address] [id number] [place] [address] Aug, [facility] [place] [facility] [address] [id number] [place] [address] Aug, [facility] [place] [facility] [address] [id number], [place] [address] Aug, [facility] [place] [facility] [address] [id number] [place] [address] Aug, [facility] [place] [facility] [address] [id number] [place] [address] Aug, [facility] [place] [facility] [address] [id number] [place] [address] Aug, [facility] [place] [facility] [address] [id number] [place] [address] Aug, [facility] [place] [facility] [address] [id number] [place] [address] Aug, [facility] [place] [facility] [address] [id number] [place] [address] Jul, 2014 [facility] [place] [facility] [address] [id number] [place] [address] Jul, 2014 [facility] [place] [facility] [address] [id number] [place] [address] Jul, 2014 [facility] [place] [facility] [address] [id number] [place] [address] Jul, 2014 [facility] [place] [facility] [address] [id number] [place] [address] Jul, [facility] [place] [facility] [address] [facility] [id number] [place] [address] Jul, [facility] [place] [facility] [address] [id number] [place] [address] Jun, [facility] [place] [facility] [address] [facility] [id number] [place] [address] Jun, [facility] [place] [facility] [address] [facility] [id number] [place] [address] Jun, [facility] [place] [facility] [address] [facility] [id number] [place] [address] Jun, [facility] [place] [facility] [address] [id number] [place] [address] May, [facility] [place] [facility] [address] [id number] [place] [address] May, [facility] [place] [facility] [address] [facility] [id number] [place] [address] May, [facility] [place] [facility] [address] [facility] [id number] [place] [address] May, [facility] [place] [facility] [address] [id number] [place] [address] May, [facility] [place] [facility] [address] [id number] [place] [address] May, [facility] [place] [facility] [address] [id number] [place] [address] May, [facility] [place] [facility] [address] [id number] [place] [address] May, [facility] [place] [facility] [address] [id number] [place] [address] May, [facility] [place] [facility] [address] [id number] [place] [address] May, [facility] [place] [facility] [address] [id number] [place] [address] Apr, [facility] [place] [facility] [address] [id number] [place] [address] Apr, [facility] [place] [facility] [address] [id number] [place] [address] Apr, [facility] [place] [facility] [address] [id number] [place] [address] Apr, [facility] [place] [facility] [address] [id number] [place] [address] Apr, [facility] [place] [facility] [address] [id number], [place] [address] Apr, [facility] [place] [facility] [address] [id number] [place] [address] Apr, [facility] [place] [facility] [address] [id number] [place] [address] Apr, [facility] [place] [facility] [address] [id number] [place] [address] Apr, [facility] [place] [facility] [address] [id number] [place] [address] 30 Mar, 2014 [facility] [place] [facility] [address] [id number] [place] [address] 30 Mar, 2014 [facility] [place] [facility] [address] [id number] [place] [address] Mar, [facility] [place] [facility] [address] [id number] [place] [address] Mar, [facility] [place] [facility] [address] [id number] [place] [address] Mar, [facility] [place] [facility] [address] [id number] [place] [address] Mar, [facility] [place] [facility] [address] [id number] [place] [address] Mar, [facility] [place] [facility] [address] [id number] [place] [address] Mar, [facility] [place] [facility] [address] [id number] [place] [address] 30 Sep, 2013 [facility] [place] [facility] [address] [id number] [place] [address] 30 Sep, 2013 [facility] [place] [facility] [address] [id number] [place] [address] 24 Sep, 2013 [facility] [place] [facility] [address] [id number] [place] [address] 24 Sep, 2013 [facility] [place] [facility] [address] [id number] [place] [address] 22 Sep, 2013 [facility] [place] [facility] [address] [id number] [place] [address] 22 Sep, 2013 [facility] [place] [facility] [address] [id number] [place] [address] 10 Feb, 2013 [facility] [place] [facility] [address] [id number] [place] [address] 10 Feb2013 [facility] [place] [facility] [address] [id number] [place] [address] Feb, 2013 [facility] [place] [facility] [address] [id number] [place] [address] Feb, 2013 [facility] [place] [facility] [address] [id number] [place] [address] Feb, 2013 [facility] [place] [facility] [address] [id number] [place] [address] Feb, 2013 [facility] [place] [facility] [address] [id number] [place] [address] Feb, 2013 [facility] [place] [facility] [address] [id number] [place] [address] Feb, 2013 [facility] [place] [facility] [address] [id number] [place] [address] Jan, [facility] [place] [facility] [address] [id number] [place] [address] Jan, [facility] [place] [facility] [address] [id number] [place] [address] Dec, [facility] [place] [facility] [address] [id number] [place] [address] Dec, [facility] [place] [facility] [address] [id number] [place] [address] Dec, [facility] [place] [facility] [address] [id number] [place] [address] Dec, [facility] [place] [facility] [address] [id number] [place] [id number] Dec, [facility] [place] [facility] [address] [id number] [place] [address] Dec, [facility] [place] [facility] [address] [id number] [place] [address] Dec, [facility] [place] [facility] [address] [id number] [place] [address] Dec, 2013 [facility] [place] [facility] [address] [id number] [place] [address] 14 Dec, 2013 [facility] [place] [facility] [address] [id number] [place] [address] Dec, 2013 [facility] [place] [facility] [address] [id number] [place] [address] Dec, 2013 [facility] [place] [facility] [address] [id number] [place] [address] Dec, 2013 [facility] [place] [facility] [address] [id number] [place] [address] Dec, [facility] [place] [facility] [address] [id number] [place] [address] Dec, [facility] [place] [facility] [address] [id number] [place] [address] Dec, [facility] [place] [facility] [address] [id number] [place] [address] Dec, [facility] [place] [facility] [address] [id number] [place] [address] Dec, [facility] [place] [facility] [address] [id number] [place] [address] Dec, [facility] [place] [facility] [address] [id number] [place] [address] Dec, [facility] [place] [facility] [address] [id number] [place] [address] Nov, [facility] [place] [facility] [address] [id number] [place] [address] Nov, [facility] [place] [facility] [address] [id number] [place] [address] Nov, [facility] [place] [facility] [address] [id number] [place] [address] Nov, [facility] [place] [facility] [address] [id number] [place] [address] Nov, [facility] [place] [facility] [address] [id number] [place] [address] Nov, [facility] [place] [facility] [address] [id number] [place] [address] Nov, [facility] [place] [facility] [address] [id number] [place] [address] Nov, [facility] [place] [facility] [address] [id number] [place] [address] Nov, [facility] [place] [facility] [address] [id number] [place] [address] October, [facility] [place] [facility] [address] [id number] [place] [address] October, [facility] [place] [facility] [address] [id number] [place] [address] October, [facility] [place] [facility] [address] [id number] [place] [address] October, [facility] [place] [facility] [address] [id number] [place] [address] October, [facility] [place] [facility] [address] [id number] [place] [address] October, [facility] [place] [facility] [address] [id number] [place] [address] October, [facility] [place] [facility] [address] [id number] [place] [address] October, [facility] [place] [facility] [address] [id number] [place] [address] Sep, [facility] [place] [facility] [address] [id number] [place] [address] Sep, [facility] [place] [facility] [address] [id number] [place] [address] Sep, [facility] [place] [facility] [address] [id number] [place] [address] Sep, [facility] [place] [facility] [address] [id number] [place] [address] Sep, [facility] [place] [facility] [address] [id number] [place] [address] Sep, [facility] [place] [facility] [address] [id number] [place] [address] Sep, [facility] [place] [facility] [address] [id number] [place] [address] Aug, [facility] [place] [facility] [address] [id number] [place] [address] Aug, [facility] [place] [facility] [address] [id number] [place] [address] Aug, [facility] [place] [facility] [address] [id number] [place] [address] Aug, [facility] [place] [facility] [address] [id number] [place] [address] Aug, [facility] [place] [facility] [address] [id number] [place] [address] Aug, [facility] [place] [facility] [address] [id number] [place] [address] Jul, [facility] [place] [facility] [address] [id number] [place] [address] Jul, [facility] [place] [facility] [address] [id number] [place] [address] Jul, [facility] [place] [facility] [address] [id number] [place] [address] Jul, [facility] [place] [facility] [address] [id number] [place] [address] Jul, [facility] [place] [facility] [address] [id number] [place] [address] Jul, [facility] [address] [id number] [place] [address] Jun, [facility] [place] [facility] [address] [id number] [place] [address] Jun, [facility] [place] [facility] [address] [id number] [place] [address] Jun, [facility] [place] [facility] [address] [id number] [place] [address] Jun, [facility] [place] [facility] [address] [id number] [place] [address] Jun, [facility] [place] [facility] [address] [id number] [place] [address] Jun, [facility] [place] [facility] [address] [id number] [place] [address] Jun, [facility] [place] [facility] [address] [id number] [place] [address] Jun, [facility] [place] [facility] [address] [id number] [place] [address] Jun, [facility] [place] [facility] [address] [id number] [place] [address] Jun, [facility] [place] [facility] [address] [id number] [place] [address] Jun, [facility] [place] [facility] [address] [id number] [place] [address] Jun, [facility] [place] [facility] [address] [id number] [place] [address] Jun, [facility] [place] [facility] [address] [id number] [place] [address] May, [facility] [place] [facility] [address] [id number] [place] [address] May, [facility] [place] [facility] [address] [id number] [place] [address] 30 May, 2013 [facility] [address] [id number] [place] [address] 30 May, 2013 [facility] [place] [facility] [address] [id number] [place] [address] 26 May, 2013 [facility] [place] [facility] [address] [id number] [place] [address] 14 May, 2013 [facility] [place] [facility] [address] [id number] [place] [address] 14 May, 2013 [facility] [place] [facility] [address] [id number] [place] [address] May, [facility] [address] [id number] [place] [address] May, [facility] [place] [facility] [address] [id number] [place] [address] May, [facility] [place] [facility] [address] [id number] [place] [address] May, [facility] [place] [facility] [address] [id number] [place] [address] May, [facility] [place] [facility] [address] [id number] [place] [address] May, [facility] [place] [facility] [address] [id number] [place] [address] May, [facility] [place] [facility] [address] [id number] [place] [address] May, [facility] [place] [facility] [address] [id number] [place] [address] 08 May, 2013 [facility] [place] [facility] [address] [id number] [place] [address] 07 May, 2013 [facility] [place] [facility] [address] [id number] [place] [address] May, [facility] [place] [facility] [address] [id number] [place] [address] May, [facility] [place] [facility] [address] [id number] [place] [address] May, [facility] [place] [facility] [address] [id number] [place] [address] May, [facility] [place] [facility] [address] [id number] [place] [address] Apr, [facility] [place] [facility] [address] [id number] [place] [address] Apr, [facility] [place] [facility] [address] [id number], [place] [address] Apr, [facility] [place] [facility] [address] [id number] [place] [address] Apr, [facility] [place] [facility] [address] [id number], [place] [address] Mar, [facility] [place] [facility] [address] [id number] [place] [address] 23 Feb, 2013 [facility] [place] [facility] [address] [id number] [place] [address] 16 Feb, 2013 [facility] [place] [facility] [address] [id number], [place] [address] 13 Feb, 2013 [facility] [place] [facility] [address] [id number], [place] [address] 10 Feb, 2013 [facility] [place] [facility] [address] [id number] [place] [address] 09 Feb, 2013 [facility] [place] [facility] [address] [id number], [place] [address] 09 Feb, 2013 [facility] [place] [facility] [address] [id number], [place] [address] Jan, [facility] [place] [facility] [address] [id number] [place] [address] Jan, [facility] [address] [id number] [place] [address] Jan, [facility] [address] [id number] [place] [address] Dec, [facility] [address] [id number] [place] [address] Dec, [facility] [address] [id number] [place] [address] Dec, [facility] [address] [id number] [place] [address] Dec, [facility] [address] [id number] [place] [address] Dec, [facility] [address] [id number] [place] [address] Nov, [facility] [address] [id number] [place] [address] Nov, [facility] [address] [id number] [place] [address] Nov, [facility] [address] [id number] [place] [address] Nov, [facility] [place] [facility] [address] [id number] [place] [address] Nov, [facility] [address] [id number] [place] [address] Nov, [facility] [place] [facility] [address] [id number] [place] [address] 07 Nov, 2012 [facility] [place] [facility] [address] [id number] [place] [address] 06 Nov, 2012 [facility] [place] [facility] [address] [id number] [place] [address] Nov, [facility] [place] [facility] [address] [id number] [place] [address] Nov, [facility] [address] [id number] [place] [address] October, [facility] [address] [id number] [place] [address] October, [facility] [place] [facility] [address] [id number] [place] [address] Sep, [facility] [address] [id number] [place] [address] Sep, [facility] [place] [facility] [address] [id number] [place] [address] Sep, [facility] [address] [id number] [place] [address] Sep, [facility] [address] [id number] [place] [address] Sep, [facility] [address] [id number] [place] [address] Aug, [facility] [address] [id number] [place] [address] Aug, [facility] [place] [facility] [address] [id number] [place] [address] Jul, [facility] [place] [facility] [address] [id number], [place] [address] Jul, [facility] [place] [facility] [address] [id number] [place] [address] Jun, [facility] [place] [facility] [address] [id number] [place] [address] Jun, [facility] [place] [facility] [address] [id number], [place] [address] May, [facility] [place] [facility] [address] [id number], [place] [address] 05 May, 2012 [facility] [place] [facility] [address] [id number] [place] [address] May, [facility] [place] [facility] [address] [facility] [id number], [place] [address] May, [facility] [place] [facility] [address] [facility] [id number] [place] [address] Apr, [facility] [place] [facility] [address] [id number], [place] [address] Apr, [facility] [place] [facility] [address] [facility] [id number] [place] [address], [place] [address] Apr, [facility] [place] [facility] [address] [facility] [id number] [place] [address] Apr, [facility] [place] [facility] [id number] [place] [address] Apr, [facility] [place] [facility] [address] [facility] [id number], [place] [address] Apr, [facility] [place] [facility] [address] [id number], [place] [address] 14 Apr, 2012 [facility] [place] [facility] [address] [id number], [place] [address] Apr, [facility] [place] [facility] [address] [facility] [id number], [place] [address] Apr, [facility] [place] [facility] [address] [facility] [id number], [place] [address] 15 Mar, 2012 [facility] [place] [facility] [address] [id number], [place] [address] 15 Mar, 2012 [facility] [place] [facility] [address] [facility] [id number], [place] [address] 05 Feb, 2012 [facility] [place] [facility] [address] [id number], [place] [address] 16 Jan, 2012 [facility] [place] [facility] [address] [id number] [place] [address] Jan, [facility] [place] [facility] [address] [id number] [place] [address] Dec, [facility] [place] [facility] [address] [id number] [place] [address] Nov, [facility] [place] [facility] [address] [id number] [place] [address] Nov, [facility] [place] [facility] [address] [id number] [place] [address] October, [facility] [place] [facility] [address] [id number] [place] [address] October, [facility] [place] [facility] [address] [id number] [place] [address] Sep, [facility] [place] [facility] [address] [id number] [place] [address] Sep, [facility] [place] [facility] [address] [id number] [place] [address] May, [facility] [place] [facility] [address] [id number] [place] [address] Apr, [facility] [place] [facility] [address] [id number] [place] [address] Apr, [facility] [place] [facility] [address] [id number] [place] [address] 15 Apr, 2011 [facility] [place] [facility] [address] [id number] [place] [address] 15 Apr, 2011 [facility] [place] [facility] [address] [id number] [place] [address] Apr, [facility] [place] [facility] [address] [id number] [place] [address] Apr, [facility] [place] [facility] [address] [id number] [place] [address] Apr, [facility] [address] [facility] [id number], [place] [address] Apr, [facility] [address] [facility] [id number], [place] [address] Mar, [facility] [address] [facility] [id number], [place] [address] Mar, [facility] [address] [facility] [id number], [place] [address] Mar, [facility] [address] [facility] [id number], [place] [address] Mar, [facility] [address] [id number], [place] [address] Mar, [facility] [address] [id number], [place] [address] Mar, IMMUNIZATIONS No Known Immunizations SOCIAL HISTORY Never Assessed REASON FOR VISIT [facility] [place] OF CARE VITAL SIGNS MEDICATIONS Unknown Medications RESULTS No Results PROCEDURES No Known procedures INSTRUCTIONS MEDICATIONS ADMINISTERED No Known Medications MEDICAL (GENERAL) HISTORY Type Description Date Medical History HTN Medical History Depression Medical History Arthritis Medical History COPD Surgical History Breast lump removed Surgical History Removal of cyst from ovary Surgical History cholecystectomy Surgical History Stomach surgeryx3 Hospitalization History Mental floor at [facility]
--- OUTSIDE RECORDS SUMMARY | 2018-10-27 16:01 | XMS REPORT ---
Author Author Migration, Doctor Organization [facility] Address Unknown Phone Unavailable Care Team Providers Care Electronic Science Teacher Name Role Phone Migration, Doctor Unavailable Unavailable PROBLEMS Type Condition ICD9-CM Code NTP27-BU Code Onset Dates Condition Status SNOMED Code Problem Unspecified open-angle glaucoma, stage unspecified H40.10X0 Feb, Active 35851626 Problem Unspecified epilepsy without mention of intractable epilepsy G40.909 Active 84740105 Problem Nondependent 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 Active 371965963 Problem Hypertension I10 Active 84993669 Problem Other chronic pain G89.29 Active 629078472 Problem Rheumatoid arthritis M06.9 Active 77914563 Problem Hyperlipidemia, unspecified E78.5 Active 56682888 Problem Acquired hypothyroidism E03.9 Active 165405277 Problem Goiter E04.9 Active 8753245 Problem Presbyopia H52.4 Active 18094305 Problem Arthralgia M25.50 Active 98591903 Problem Right-sided low back pain without sciatica M54.5 Active 541507493 Problem Anxiety disorder, unspecified F41.9 Active 301140597 Problem Insomnia G47.00 Active 538824624 Problem Neuropathy G62.9 Active 661588885 Problem Thyroid nodule E04.1 Active 934603670 Problem Multinodular goiter E04.2 Active 676613662 Problem Chronic tension-type headache, intractable G44.221 Active 489646659 Problem Cough R05 Active 88371016 Problem Carpal tunnel syndrome of left wrist G56.02 Active [id number] Problem Chronic obstructive pulmonary disease, unspecified COPD type J44.9 Active 42355963 Problem COPD with exacerbation J44.1 Active 157249932 Problem Depressive disorder F32.9 Active 98939897 Problem Seasonal allergic rhinitis due to pollen J30.1 Active 05010947 Problem Esophageal reflux K21.9 Active 408051233 Problem Depression F32.9 Active 89916755 Problem BMI 40.0-44.9, adult Z68.41 Active 173124916 Problem Reactive airway disease without complication, unspecified asthma severity, unspecified whether persistent J45.909 Active 721684231690 Problem Urge incontinence of urine N39.41 Active 66295543 Problem Abnormal laboratory test R89.9 Active 236890481 ALLERGIES No Information ENCOUNTERS Encounter Location Date Diagnosis [facility] [id number] [place] [address] October, [facility] [address] [address] Sep, Generalized abdominal pain R10.84 ; Morbid obesity E66.01 ; Non-intractable vomiting with nausea, unspecified vomiting type R11.2 and Seasonal allergic rhinitis due to pollen J30.1 [facility] [id number] [place] [address] Jul, COPD with exacerbation J44.1 ; Viral upper respiratory tract infection J06.9 and Morbid obesity E66.01 [facility] [place] [id number] [place] [address] Jun, Viral upper respiratory tract infection J06.9 [place] [address] [address] Apr, Abnormal laboratory test R89.9 [place] [id number] [place] [address] Apr, Abnormal laboratory test R89.9 [place] [id number] [place] [address] Apr, Abnormal laboratory test R89.9 [place] [id number] [place] [address] Apr, [place] [id number] [place] [address] Apr, [place] [id number] [place] [address] Apr, Nonintractable episodic headache, unspecified headache type R51 ; Urge incontinence of urine N39.41 ; BMI 40.0-44.9, adult Z68.41 ; Myalgia M79.10 and Acute cystitis without hematuria N30.00 [place] [id number] [place] [address] 31 Mar, 2018 Nasal congestion R09.81 ; Low back pain M54.5 ; Reactive airway disease without complication, unspecified asthma severity, unspecified whether persistent J45.909 ; Other chronic pain G89.29 ; Acute cystitis with hematuria N30.01 and BMI 40.0-44.9, adult Z68.41 [facility] [id number] [place] [address] Mar, Acute cystitis with hematuria N30.01 [facility] [id number] [place] [address] Mar, BMI 40.0-44.9, adult Z68.41 ; Acute cystitis with hematuria N30.01 ; Acute bilateral low back pain without sciatica M54.5 and Nausea R11.0 [place] [id number] [place] [address] Mar, Hypertension I10 ; Acquired hypothyroidism E03.9 ; Esophageal reflux K21.9 ; Chronic obstructive pulmonary disease, unspecified COPD type J44.9 and BMI 40.0-44.9, adult Z68.41 [place] [id number] [place] [address] Mar, Hypertension I10 [place] [id number] [place] [address] Nov, Hyperlipidemia, unspecified E78.5 [place] [id number] [place] [address] October, Chest pain, unspecified type R07.9 and Acquired hypothyroidism E03.9 [place] [id number] [place] [address] October, Chest pain, unspecified type R07.9 ; Family history of coronary artery disease Z82.49 ; Carpal tunnel syndrome of left wrist G56.02 ; Hypertension I10 ; Esophageal reflux K21.9 ; Arthralgia M25.50 ; Acquired hypothyroidism E03.9 ; Cough R05 ; Nausea R11.0 ; Weight gain R63.5 and BMI 45.0-49.9, adult Z68.42 [place] [address] [address] Jun, Acquired hypothyroidism E03.9 and Cough R05 [place] [address] [address] May, [address] [address] Feb, Tarsal tunnel syndrome of both lower extremities G57.53 and Neuropathy G62.[address] [address] Dec, Pleuritis R09.1 [place] [address] [address] Nov, [place] [address] [address] October, Arthralgia, unspecified joint M25.50 and Allergy, initial encounter T78.40XA [place] [address] [address] October, [place] [address] [address] October, Acute recurrent maxillary sinusitis J01.01 and Arthralgia M25.50 [place] [address] [address] Sep, Pharyngitis due to other organism J02.8 [place] [address] [address] Aug, Acute nasopharyngitis J00 [place] [address] [address] Aug, Multinodular goiter E04.2 [place] [address] [address] Aug, Thyroid nodule E04.1 [place] [id number] [place] [address] 17 Jul, 2016 Tarsal tunnel syndrome of both lower extremities G57.53 [place] [address] [address] Jun, Pneumonia due to infectious organism, unspecified laterality, unspecified part of lung J18.[address] [address] Jun, Bronchospasm with bronchitis, acute J20.9 [place] [id number] [place] [address] May, Acute non-recurrent frontal sinusitis J01.10 [place] [id number] [place] [address] May, Flat foot [pes planus] (acquired), left foot M21.42 ; Flat foot [pes planus] (acquired), right foot M21.41 and Neuropathy G62.9 [place] [id number] [place] [address] Apr, Chronic tension-type headache, intractable G44.221 ; Right lower quadrant abdominal pain R10.31 ; Cervicalgia M54.2 ; Acute gastritis without hemorrhage, unspecified gastritis type K29.00 and Hypertension I10 [place] [id number] [place] [address] Mar, Depression F32.9 and Anxiety disorder, unspecified F41.9 [place] [id number] [place] [address] Feb, Depressive disorder F32.9 and Anxiety disorder, unspecified F41.9 [place] [id number] [place] [address] Jan, Dysuria R30.0 ; Lower abdominal pain R10.30 ; Acute bilateral low back pain without sciatica M54.5 ; Nausea and vomiting, unspecified intactability, vomiting of unspecified type R11.2 ; Pain in right foot M79.671 and Pain of left foot M79.672 [place] [id number] [place] [address] Dec, Urinary tract infection, site not specified N39.0 [place] [id number] [place] [address] Dec, [place] [id number] [place] [address] Nov, [place] [id number] [place] [address] Nov, Dysuria R30.0 [place] [id number] [place] [address] Nov, Dysuria R30.0 and Acute cystitis with hematuria N30.01 [place] [id number] [place] [address] October, Nausea R11.0 [place] [id number] [place] [address] October, Thyroid nodule E04.1 ; Carpal tunnel syndrome, left upper limb G56.02 ; Carpal tunnel syndrome, right upper limb G56.01 and Constipation, unspecified constipation type K59.00 [place] [id number] [place] [address] October, [place] [id number] [place] [address] October, Thyroid nodule E04.1 [place] [id number] [place] [address] October, Cold thyroid nodule E04.1 [place] [id number] [place] [address] October, [place] [address] [address] Sep, Thyroid nodule E04.1 [place] [address] [address] Sep, Thyroid nodule E04.1 [place] [address] [address] Sep, Thyroid nodule E04.1 ; Hypertension I10 ; Esophageal reflux K21.9 and Hyperlipidemia, unspecified E78.5 [place] [address] [address] Aug, Other chronic pain G89.29 ; Sinusitis J32.9 and Hypertension I10 [place] [address] [address] Jul, [place] [address] [address] 15 Jul, 2015 [place] [address] [address] Jul, Insomnia G47.00 and Arthralgia M25.50 [place] [address] [address] 10 Jul, 2015 Depressive disorder F32.9 and Anxiety disorder, unspecified F41.9 [place] [address] [address] May, Right-sided low back pain without sciatica M54.5 and Depression F32.9 [place] [address] [address] Apr, Hematuria R31.9 [place] [address] [address] Mar, Other chronic pain G89.29 [facility] [address] [address] Mar, Other chronic pain G89.29 [facility] [address] [place] [address] Feb, [facility] [address] [address] Feb, Other chronic pain 338.29 ; Dysuria 788.1 ; UTI (urinary tract infection) 599.0 ; Insomnia 780.52 ; Hot flashes 627.2 and Hypertension 401.9 [facility] [address] [place] [address] 14 Feb, 2015 Dysuria 788.1 [facility] [address] [place] [address] Feb, [facility] [id number] [place] [address] Jan, [facility] [address] [address] Jan, [facility] [address] [place] [address] Jan, Fibromyalgia 729.1 ; Hypertension 401.9 ; Dysthymia 300.4 and Hot flashes 627.2 [facility] [address] [address] Dec, [facility] [address] [address] Dec, [facility] [id number] [place] [address] Dec, [facility] [address] [address] Nov, Other chronic pain 338.29 [facility] [address] [place] [address] October, [facility] [place] [facility] [address] [id number] [place] [address] October, [facility] [place] [facility] [address] [id number] [place] [address] 14 Sep, 2014 [facility] [place] [facility] [address] [id number] [place] [address] Sep, [facility] [place] [facility] [address] [id number] [place] [address] Aug, [facility] [place] [facility] [address] [id number] [place] [address] Aug, [facility] [place] [facility] [address] [id number] [place] [address] Aug, [facility] [place] [facility] [address] [id number] [place] [address] Aug, [facility] [place] [facility] [address] [id number] [place] [address] Aug, [facility] [place] [facility] [address] [id number] [place] [address] Aug, [facility] [place] [facility] [address] [id number] [place] [address] Aug, [facility] [place] [facility] [address] [id number] [place] [address] Aug, [facility] [place] [facility] [address] [id number] [address] Aug, [facility] [place] [facility] [address] [id number] [place] [address] Aug, [facility] [place] [facility] [address] [id number] [place] [address] Aug, [facility] [place] [facility] [address] [id number] [place] [address] Aug, [facility] [place] [facility] [address] [id number] [place] [address] Aug, [facility] [place] [facility] [address] [id number] [place] [address] Aug, [facility] [place] [facility] [address] [id number] [place] [address] Jul, 2014 [facility] [place] [facility] [address] [id number] [place] [address] Jul, 2014 [facility] [place] [facility] [address] [id number] [place] [address] Jul, 2014 [facility] [place] [facility] [address] [id number] [place] [address] Jul, 2014 [facility] [place] [facility] [address] [id number] [place] [address] Jul, [facility] [place] [facility] [address] [facility] [id number] [place] [address] Jul, [facility] [place] [facility] [address] [id number] [place] [address] Jun, [facility] [place] [facility] [address] [facility] [id number] [place] [address] Jun, [facility] [place] [facility] [address] [facility] [id number] [place] [address] Jun, [facility] [place] [facility] [address] [facility] [id number] [place] [address] Jun, [facility] [place] [facility] [address] [id number] [place] [address] May, [facility] [place] [facility] [address] [id number] [place] [address] May, [facility] [place] [facility] [address] [facility] [id number] [place] [address] May, [facility] [place] [facility] [address] [facility] [id number] [place] [address] May, [facility] [place] [facility] [address] [id number] [place] [address] May, [facility] [place] [facility] [address] [id number] [place] [address] May, [facility] [place] [facility] [address] [id number] [place] [address] May, [facility] [place] [facility] [address] [id number] [place] [address] May, [facility] [place] [facility] [address] [id number] [place] [address] May, [facility] [place] [facility] [address] [id number] [place] [address] May, [facility] [place] [facility] [address] [id number] [place] [address] Apr, [facility] [place] [facility] [address] [id number] [place] [address] Apr, [facility] [place] [facility] [address] [id number] [place] [address] Apr, [facility] [place] [facility] [address] [id number] [place] [address] Apr, [facility] [place] [facility] [address] [id number] [place] [address] Apr, [facility] [place] [facility] [address] [id number] [address] Apr, [facility] [place] [facility] [address] [id number] [place] [address] Apr, [facility] [place] [facility] [address] [id number] [place] [address] Apr, [facility] [place] [facility] [address] [id number] [place] [address] Apr, [facility] [place] [facility] [address] [id number] [place] [address] 30 Mar, 2014 [facility] [place] [facility] [address] [id number] [place] [address] 30 Mar, 2014 [facility] [place] [facility] [address] [id number] [place] [address] Mar, [facility] [place] [facility] [address] [id number] [place] [address] Mar, [facility] [place] [facility] [address] [id number] [place] [address] Mar, [facility] [place] [facility] [address] [id number] [place] [address] Mar, [facility] [place] [facility] [address] [id number] [place] [address] Mar, [facility] [place] [facility] [address] [id number] [place] [address] Mar, [facility] [place] [facility] [address] [id number] [place] [address] 30 Sep, 2013 [facility] [place] [facility] [address] [id number] [place] [address] 30 Sep, 2013 [facility] [place] [facility] [address] [id number] [place] [address] 24 Sep, 2013 [facility] [place] [facility] [address] [id number] [place] [address] 24 Sep, 2013 [facility] [place] [facility] [address] [id number] [place] [address] 22 Sep, 2013 [facility] [place] [facility] [address] [id number] [place] [address] 22 Sep, 2013 [facility] [place] [facility] [address] [id number] [place] [address] 10 Feb, 2013 [facility] [place] [facility] [address] [id number] [place] [address] 10 Feb2013 [facility] [place] [facility] [address] [id number] [place] [address] Feb, 2013 [facility] [place] [facility] [address] [id number] [place] [address] Feb, 2013 [facility] [place] [facility] [address] [id number] [place] [address] Feb, 2013 [facility] [place] [facility] [address] [id number] [place] [address] Feb, 2013 [facility] [place] [facility] [address] [id number] [place] [address] Feb, 2013 [facility] [place] [facility] [address] [id number] [place] [address] Feb, 2013 [facility] [place] [facility] [address] [id number] [place] [address] Jan, [facility] [place] [facility] [address] [id number] [place] [address] Jan, [facility] [place] [facility] [address] [id number] [place] [address] Dec, [facility] [place] [facility] [address] [id number] [place] [address] Dec, [facility] [place] [facility] [address] [id number] [place] [address] Dec, [facility] [place] [facility] [address] [id number] [place] [address] Dec, [facility] [place] [facility] [address] [id number] [place] [address] Dec, [facility] [place] [facility] [address] [id number] [place] [address] Dec, [facility] [place] [facility] [address] [id number] [place] [address] Dec, [facility] [place] [facility] [address] [id number] [place] [address] Dec, 2013 [facility] [place] [facility] [address] [id number] [place] [address] 14 Dec, 2013 [facility] [place] [facility] [address] [id number] [place] [address] Dec, 2013 [facility] [place] [facility] [address] [id number] [place] [address] Dec, 2013 [facility] [place] [facility] [address] [id number] [place] [address] Dec, 2013 [facility] [place] [facility] [address] [id number] [place] [address] Dec, [facility] [place] [facility] [address] [id number] [place] [address] Dec, [facility] [place] [facility] [address] [id number] [place] [address] Dec, [facility] [place] [facility] [address] [id number] [place] [address] Dec, [facility] [place] [facility] [address] [id number] [place] [address] Dec, [facility] [place] [facility] [address] [id number] [place] [address] Dec, [facility] [place] [facility] [address] [id number] [place] [address] Dec, [facility] [place] [facility] [address] [id number] [place] [address] Nov, [facility] [place] [facility] [address] [id number] [place] [address] Nov, [facility] [place] [facility] [address] [id number] [place] [address] Nov, [facility] [place] [facility] [address] [id number] [place] [address] Nov, [facility] [place] [facility] [address] [id number] [place] [address] Nov, [facility] [place] [facility] [address] [id number] [place] [address] Nov, [facility] [place] [facility] [address] [id number] [place] [address] Nov, [facility] [place] [facility] [address] [id number] [place] [address] Nov, [facility] [place] [facility] [address] [id number] [place] [address] Nov, [facility] [place] [facility] [address] [id number] [place] [address] October, [facility] [place] [facility] [address] [id number] [place] [address] October, [facility] [place] [facility] [address] [id number] [place] [address] October, [facility] [place] [facility] [address] [id number] [place] [address] October, [facility] [place] [facility] [address] [id number] [place] [address] October, [facility] [place] [facility] [address] [id number] [place] [address] October, [facility] [place] [facility] [address] [id number] [place] [address] October, [facility] [place] [facility] [address] [id number] [place] [address] October, [facility] [place] [facility] [address] [id number] [place] [address] Sep, [facility] [place] [facility] [address] [id number] [place] [address] Sep, [facility] [place] [facility] [address] [id number] [place] [address] Sep, [facility] [place] [facility] [address] [id number] [place] [address] Sep, [facility] [place] [facility] [address] [id number] [place] [address] Sep, [facility] [place] [facility] [address] [id number] [place] [address] Sep, [facility] [place] [facility] [address] [id number] [place] [address] Sep, [facility] [place] [facility] [address] [id number] [place] [address] Aug, [facility] [place] [facility] [address] [id number] [place] [address] Aug, [facility] [place] [facility] [address] [id number] [place] [address] Aug, [facility] [place] [facility] [address] [id number] [place] [address] Aug, [facility] [place] [facility] [address] [id number] [place] [address] Aug, [facility] [place] [facility] [address] [id number] [place] [address] Aug, [facility] [place] [facility] [address] [id number] [place] [address] Jul, [facility] [place] [facility] [address] [id number] [place] [address] Jul, [facility] [place] [facility] [address] [id number] [place] [address] Jul, [facility] [place] [facility] [address] [id number] [place] [address] Jul, [facility] [place] [facility] [address] [id number] [place] [address] Jul, [facility] [place] [facility] [address] [id number] [place] [address] Jul, [facility] [address] [id number] [place] [address] Jun, [facility] [place] [facility] [address] [id number] [place] [address] Jun, [facility] [place] [facility] [address] [id number] [place] [address] Jun, [facility] [place] [facility] [address] [id number] [place] [address] Jun, [facility] [place] [facility] [address] [id number] [place] [address] Jun, [facility] [place] [facility] [address] [id number] [place] [address] Jun, [facility] [place] [facility] [address] [id number] [place] [address] Jun, [facility] [place] [facility] [address] [id number] [place] [address] Jun, [facility] [place] [facility] [address] [id number] [place] [address] Jun, [facility] [place] [facility] [address] [id number] [place] [address] Jun, [facility] [place] [facility] [address] [id number] [place] [address] Jun, [facility] [place] [facility] [address] [id number] [place] [address] Jun, [facility] [place] [facility] [address] [id number] [place] [address] Jun, [facility] [place] [facility] [address] [id number] [place] [address] May, [facility] [place] [facility] [address] [id number] [place] [address] May, [facility] [place] [facility] [address] [id number] [place] [address] 30 May, 2013 [facility] [address] [id number] [place] [address] 30 May, 2013 [facility] [place] [facility] [address] [id number] [place] [address] 26 May, 2013 [facility] [place] [facility] [address] [id number] [place] [address] 14 May, 2013 [facility] [place] [facility] [address] [id number] [place] [address] 14 May, 2013 [facility] [place] [facility] [address] [id number] [place] [address] May, [facility] [address] [id number] [place] [address] May, [facility] [place] [facility] [address] [id number] [place] [address] May, [facility] [place] [facility] [address] [id number] [place] [address] May, [facility] [place] [facility] [address] [id number] [place] [address] May, [facility] [place] [facility] [address] [id number] [place] [address] May, [facility] [place] [facility] [address] [id number] [place] [address] May, [facility] [place] [facility] [address] [id number] [place] [address] May, [facility] [place] [facility] [address] [id number] [place] [address] 08 May, 2013 [facility] [place] [facility] [address] [id number] [place] [address] 07 May, 2013 [facility] [place] [facility] [address] [id number] [place] [address] May, [facility] [place] [facility] [address] [id number] [place] [address] May, [facility] [place] [facility] [address] [id number] [place] [address] May, [facility] [place] [facility] [address] [id number] [place] [address] May, [facility] [place] [facility] [address] [id number] [place] [address] Apr, [facility] [place] [facility] [address] [id number] [place] [address] Apr, [facility] [place] [facility] [address] [id number] [address] Apr, [facility] [place] [facility] [address] [id number] [place] [address] Apr, [facility] [place] [facility] [address] [id number], [place] [address] Mar, [facility] [place] [facility] [address] [id number] [place] [address] 23 Feb, 2013 [facility] [place] [facility] [address] [id number] [place] [address] 16 Feb, 2013 [facility] [place] [facility] [address] [id number], [place] [address] 13 Feb, 2013 [facility] [place] [facility] [address] [id number], [place] [address] 10 Feb, 2013 [facility] [place] [facility] [address] [id number] [place] [address] 09 Feb, 2013 [facility] [place] [facility] [address] [id number], [place] [address] 09 Feb, 2013 [facility] [place] [facility] [address] [id number], [place] [address] Jan, [facility] [place] [facility] [address] [id number] [place] [address] Jan, [facility] [address] [id number] [place] [address] Jan, [facility] [address] [id number] [place] [address] Dec, [facility] [address] [id number] [place] [address] Dec, [facility] [address] [id number] [place] [address] Dec, [facility] [address] [id number] [place] [address] Dec, [facility] [address] [id number] [place] [address] Dec, [facility] [address] [id number] [place] [address] Nov, [facility] [address] [id number] [place] [address] Nov, [facility] [address] [id number] [place] [address] Nov, [facility] [address] [id number] [place] [address] Nov, [facility] [place] [facility] [address] [id number] [place] [address] Nov, [facility] [address] [id number] [place] [address] Nov, [facility] [place] [facility] [address] [id number] [place] [address] 07 Nov, 2012 [facility] [place] [facility] [address] [id number] [place] [address] 06 Nov, 2012 [facility] [place] [facility] [address] [id number] [place] [address] Nov, [facility] [place] [facility] [address] [id number] [place] [address] Nov, [facility] [address] [id number] [place] [address] October, [facility] [address] [id number] [place] [address] October, [facility] [place] [facility] [address] [id number] [place] [address] Sep, [facility] [address] [id number] [place] [address] Sep, [facility] [place] [facility] [address] [id number] [place] [address] Sep, [facility] [address] [id number] [place] [address] Sep, [facility] [address] [id number] [place] [address] Sep, [facility] [address] [id number] [place] [address] Aug, [facility] [address] [id number] [place] [address] Aug, [facility] [place] [facility] [address] [id number] [place] [address] Jul, [facility] [place] [facility] [address] [id number], [place] [address] Jul, [facility] [place] [facility] [address] [id number] [place] [address] Jun, [facility] [place] [facility] [address] [id number] [place] [address] Jun, [facility] [place] [facility] [address] [id number], [place] [address] May, [facility] [place] [facility] [address] [id number], [place] [address] 05 May, 2012 [facility] [place] [facility] [address] [id number] [place] [address] May, [facility] [place] [facility] [address] [facility] [id number], [place] [address] May, [facility] [place] [facility] [address] [facility] [id number] [place] [address] Apr, [facility] [place] [facility] [address] [id number][place] [address] Apr, [facility] [place] [facility] [address] [facility] [id number] [place] [address], [place] [address] Apr, [facility] [place] [facility] [address] [facility] [id number] [place] [address] Apr, [facility] [place] [facility] [id number] [place] [address] Apr, [facility] [place] [facility] [address] [facility] [id number], [place] [address] Apr, [facility] [place] [facility] [address] [id number], [place] [address] 14 Apr, 2012 [facility] [place] [facility] [address] [id number], [place] [address] Apr, [facility] [place] [facility] [address] [facility] [id number], [place] [address] Apr, [facility] [place] [facility] [address] [facility] [id number], [place] [address] 15 Mar, 2012 [facility] [place] [facility] [address] [id number], [place] [address] 15 Mar, 2012 [facility] [place] [facility] [address] [facility] [id number][place] [address] 05 Feb, 2012 [facility] [place] [facility] [address] [id number], [place] [address] 16 Jan, 2012 [facility] [place] [facility] [address] [id number] [place] [address] Jan, [facility] [place] [facility] [address] [id number] [place] [address] Dec, [facility] [place] [facility] [address] [id number] [place] [address] Nov, [facility] [place] [facility] [address] [id number] [place] [address] Nov, [facility] [place] [facility] [address] [id number] [place] [address] October, [facility] [place] [facility] [address] [id number] [place] [address] October, [facility] [place] [facility] [address] [id number] [place] [address] Sep, [facility] [place] [facility] [address] [id number] [place] [address] Sep, [facility] [place] [facility] [address] [id number] [place] [address] May, [facility] [place] [facility] [address] [id number] [place] [address] Apr, [facility] [place] [facility] [address] [id number] [place] [address] Apr, [facility] [place] [facility] [address] [id number] [place] [address] 15 Apr, 2011 [facility] [place] [facility] [address] [id number] [place] [address] 15 Apr, 2011 [facility] [place] [facility] [address] [id number] [place] [address] Apr, [facility] [place] [facility] [address] [id number] [place] [address] Apr, [facility] [place] [facility] [address] [id number] [place] [address] Apr, [facility] [address] [facility] [id number], [place] [address] Apr, [facility] [address] [facility] [id number], [place] [address] Mar, [facility] [address] [facility] [id number][place] [address] Mar, [facility] [address] [facility] [id number], [place] [address] Mar, [facility] [address] [facility] [id number], [place] [address] Mar, [facility] [address] [id number], [place] [address] Mar, [facility] [address] [id number], [place] [address] Mar, IMMUNIZATIONS No Known Immunizations SOCIAL HISTORY Never Assessed REASON FOR VISIT [facility] [place] PL[place] OF CARE VITAL SIGNS MEDICATIONS Unknown Medications RESULTS No Results PROCEDURES No Known procedures INSTRUCTIONS MEDICATIONS ADMINISTERED No Known Medications MEDICAL (GENERAL) HISTORY Type Description Date Medical History HTN Medical History Depression Medical History Arthritis Medical History COPD Surgical History Breast lump removed Surgical History Removal of cyst from ovary Surgical History cholecystectomy Surgical History Stomach surgeryx3 Hospitalization History Mental floor at [facility]
--- OUTSIDE RECORDS SUMMARY | 2018-10-27 16:02 | XMS REPORT ---
Author Author Migration, Doctor Organization [facility] Address Unknown Phone Unavailable Care Team Providers Care Railroad Track Inspector Name Role Phone Migration, Doctor Unavailable Unavailable PROBLEMS Type Condition ICD9-CM Code MNA33-UT Code Onset Dates Condition Status SNOMED Code Problem Presbyopia H52.4 Active 88679754 Problem Nondependent 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 Active 749520156 Problem Unspecified open-angle glaucoma, stage unspecified H40.10X0 Feb, Active 84910004 Problem Other chronic pain G89.29 Active 549429749 Problem Unspecified epilepsy without mention of intractable epilepsy G40.909 Active 51233340 Problem Hyperlipidemia, unspecified E78.5 Active 86486904 Problem Hypertension I10 Active 45082535 Problem Goiter E04.9 Active 2581081 Problem Multinodular goiter E04.2 Active 411667121 Problem Right-sided low back pain without sciatica M54.5 Active 048888526 Problem Depression F32.9 Active 98809695 Problem Insomnia G47.00 Active 268650377 Problem Arthralgia M25.50 Active 46826005 Problem Thyroid nodule E04.1 Active 604936591 Problem Anxiety disorder, unspecified F41.9 Active 492248689 Problem Chronic tension-type headache, intractable G44.221 Active 127867674 Problem Neuropathy G62.9 Active 240064766 Problem Acquired hypothyroidism E03.9 Active 371250842 Problem Cough R05 Active 21976193 Problem Carpal tunnel syndrome of left wrist G56.02 Active 469959738290810 Problem Abnormal laboratory test R89.9 Active 074305493 Problem Esophageal reflux K21.9 Active 315050313 Problem COPD with exacerbation J44.1 Active 394437952 Problem Rheumatoid arthritis M06.9 Active 46522257 Problem Depressive disorder F32.9 Active 33437104 Problem Chronic obstructive pulmonary disease, unspecified COPD type J44.9 Active 25939260 Problem BMI 40.0-44.9, adult Z68.41 Active 060251332 Problem Reactive airway disease without complication, unspecified asthma severity, unspecified whether persistent J45.909 Active 514320518755 Problem Urge incontinence of urine N39.41 Active 80316197 ALLERGIES No Information ENCOUNTERS Encounter Location Date Diagnosis [facility] [id number] [place] [address] Jul, COPD with exacerbation J44.1 ; Viral upper respiratory tract infection J06.9 and Morbid obesity E66.01 [facility] [id number] [address] Jun, Viral upper respiratory tract infection J06.9 [place] [id number] [address] Apr, Abnormal laboratory test R89.9 [place] [id number] [address] Apr, Abnormal laboratory test R89.9 [place] [address] [address] Apr, Abnormal laboratory test R89.9 [place] [id number] [address] Apr, [place] [id number] [address] Apr, [place] [id number] [address] Apr, Nonintractable episodic headache, unspecified headache type R51 ; Urge incontinence of urine N39.41 ; BMI 40.0-44.9, adult Z68.41 ; Myalgia M79.10 and Acute cystitis without hematuria N30.00 [place] [address] [address] Mar, Nasal congestion R09.81 ; Low back pain M54.5 ; Reactive airway disease without complication, unspecified asthma severity, unspecified whether persistent J45.909 ; Other chronic pain G89.29 ; Acute cystitis with hematuria N30.01 and BMI 40.0-44.9, adult Z68.41 [facility] [id number] [address] Mar, Acute cystitis with hematuria N30.01 [facility] [id number] [address] Mar, BMI 40.0-44.9, adult Z68.41 ; Acute cystitis with hematuria N30.01 ; Acute bilateral low back pain without sciatica M54.5 and Nausea R11.0 [place] [address] [address] Mar, Hypertension I10 ; Acquired hypothyroidism E03.9 ; Esophageal reflux K21.9 ; Chronic obstructive pulmonary disease, unspecified COPD type J44.9 and BMI 40.0-44.9, adult Z68.[address] [address] Mar, Hypertension I10 [place] [address] [address] Nov, Hyperlipidemia, unspecified E78.[address] [address] October, Chest pain, unspecified type R07.9 and Acquired hypothyroidism E03.9 [id number] [address] October, Chest pain, unspecified type R07.9 ; Family history of coronary artery disease Z82.49 ; Carpal tunnel syndrome of left wrist G56.02 ; Hypertension I10 ; Esophageal reflux K21.9 ; Arthralgia M25.50 ; Acquired hypothyroidism E03.9 ; Cough R05 ; Nausea R11.0 ; Weight gain R63.5 and BMI 45.0-49.9, adult Z68.42 [place] [id number] [address] Jun, Acquired hypothyroidism E03.9 and Cough R05 [id number] [address] May, [place] [address] [address] Feb, Tarsal tunnel syndrome of both lower extremities G57.53 and Neuropathy G62.9 [place] [address] [address] Dec, Pleuritis R09.1 [place] [address] [address] Nov, [place] [address] [address] October, Arthralgia, unspecified joint M25.50 and Allergy, initial encounter T78.40XA [place] [address] [address] October, [place] [address] [address] October, Acute recurrent maxillary sinusitis J01.01 and Arthralgia M25.50 [place] [address] [address] Sep, Pharyngitis due to other organism J02.8 [place] [id number] [address] Aug, Acute nasopharyngitis J00 [place] [address] [address] Aug, Multinodular goiter E04.2 [place] [address] [address] Aug, Thyroid nodule E04.1 [place] [id number] [address] Jul, Tarsal tunnel syndrome of both lower extremities G57.53 [place] [address] [place] [address] Jun, Pneumonia due to infectious organism, unspecified laterality, unspecified part of lung J18.9 [place] [address] [address] Jun, Bronchospasm with bronchitis, acute J20.9 [place] [address] [address] May, Acute non-recurrent frontal sinusitis J01.10 [place] [address] [address] May, Flat foot [pes planus] (acquired), left foot M21.42 ; Flat foot [pes planus] (acquired), right foot M21.41 and Neuropathy G62.9 [place] [address] [address] Apr, Chronic tension-type headache, intractable G44.221 ; Right lower quadrant abdominal pain R10.31 ; Cervicalgia M54.2 ; Acute gastritis without hemorrhage, unspecified gastritis type K29.00 and Hypertension I10 [place] [address] [address] Mar, Depression F32.9 and Anxiety disorder, unspecified F41.9 [place] [id number] [address] Feb, Depressive disorder F32.9 and Anxiety disorder, unspecified F41.9 [place] [id number] [address] Jan, Dysuria R30.0 ; Lower abdominal pain R10.30 ; Acute bilateral low back pain without sciatica M54.5 ; Nausea and vomiting, unspecified intactability, vomiting of unspecified type R11.2 ; Pain in right foot M79.671 and Pain of left foot M79.672 [place] [id number] [address] Dec, Urinary tract infection, site not specified N39.0 [facility] [address] [address] Dec, [facility] [id number] [address] Nov, [facility] [id number] [address] Nov, Dysuria R30.0 [facility] [id number] [address] Nov, Dysuria R30.0 and Acute cystitis with hematuria N30.01 [facility] [id number] [address] October, Nausea R11.0 [facility] [id number] [address] October, Thyroid nodule E04.1 ; Carpal tunnel syndrome, left upper limb G56.02 ; Carpal tunnel syndrome, right upper limb G56.01 and Constipation, unspecified constipation type K59.00 [facility] [id number] [address] October, [facility] [address] [address] October, Thyroid nodule E04.1 [facility] [id number] [address] October, Cold thyroid nodule E04.1 [facility] [address] [address] October, [facility] [id number] [address] Sep, Thyroid nodule E04.1 [facility] [address] [address] Sep, Thyroid nodule E04.1 [facility] [id number] [address] Sep, Thyroid nodule E04.1 ; Hypertension I10 ; Esophageal reflux K21.9 and Hyperlipidemia, unspecified E78.5 [place] [address] [address] 14 Aug, 2015 Other chronic pain G89.29 ; Sinusitis J32.9 and Hypertension I10 [place] [address] [address] Jul, [place] [address] [address] 15 Jul, 2015 [place] [address] [address] 10 Jul, 2015 Insomnia G47.00 and Arthralgia M25.50 [place] [address] [address] 10 Jul, 2015 Depressive disorder F32.9 and Anxiety disorder, unspecified F41.9 [place] [address] [address] May, Right-sided low back pain without sciatica M54.5 and Depression F32.9 [place] [id number] [address] Apr, Hematuria R31.9 [place] [address] [address] Mar, Other chronic pain G89.29 [place] [address] [address] Mar, Other chronic pain G89.29 [place] [address] [address] Feb, [place] [address] [address] 22 Feb, 2015 Other chronic pain 338.29 ; Dysuria 788.1 ; UTI (urinary tract infection) 599.0 ; Insomnia 780.52 ; Hot flashes 627.2 and Hypertension 401.9 [facility] [address] [address] Feb, Dysuria 788.1 [facility] [address] [address] Feb, [facility] [id number] [address] Jan, [facility] [id number] [address] Jan, [facility] [id number] [address] Jan, Fibromyalgia 729.1 ; Hypertension 401.9 ; Dysthymia 300.4 and Hot flashes 627.2 [facility] [id number] [address] Dec, [facility] [address] [address] Dec, [facility] [address] [address] Dec, [facility] [address] [address] Nov, Other chronic pain 338.29 [facility] [address] [address] October, [facility] [address] [address] October, [facility] [address] [address] Sep, [facility] [address] [address] Sep, [facility] [id number] [address] Aug, [facility] [place] [facility] [address] [id number] [place] [address] Aug, [facility] [place] [facility] [address] [id number] [place] [address] Aug, [facility] [place] [facility] [address] [id number] [place] [address] Aug, [facility] [place] [facility] [address] [id number] [place] [address] Aug, [facility] [place] [facility] [address] [id number] [place] [address] Aug, [facility] [place] [facility] [address] [id number] [place] [address] Aug, [facility] [place] [facility] [address] [id number] [place] [address] Aug, [facility] [place] [facility] [address] [id number] [place] [address] Aug, [facility] [place] [facility] [address] [id number] [place] [address] Aug, [facility] [place] [facility] [address] [id number] [place] [address] Aug, [facility] [place] [facility] [address] [id number] [place] [address] Aug, [facility] [place] [facility] [address] [id number] [place] [address] Aug, [facility] [place] [facility] [address] [id number] [place] [address] Aug, [facility] [place] [facility] [address] [id number] [place] [address] Jul, [facility] [place] [facility] [address] [id number] [place] [address] Jul, [facility] [place] [facility] [address] [id number] [place] [address] Jul, [facility] [place] [facility] [address] [id number] [place] [address] Jul, [facility] [place] [facility] [address] [id number] [place] [address] Jul, [facility] [place] [facility] [address] [id number] [place] [address] Jul, [facility] [place] [facility] [address] [id number] [place] [address] Jun, [facility] [place] [facility] [address] [id number] [place] [address] Jun, [facility] [place] [facility] [address] [id number] [place] [address] Jun, [facility] [place] [facility] [address] [id number] [place] [address] Jun, [facility] [place] [facility] [address] [id number] [place] [address] May, [facility] [place] [facility] [address] [id number] [place] [address] May, [facility] [place] [facility] [address] [id number] [place] [address] May, [facility] [place] [facility] [address] [id number] [place] [address] May, [facility] [place] [facility] [address] [id number] [place] [address] May, [facility] [place] [facility] [address] [id number] [place] [address] May, [facility] [place] [facility] [address] [id number] [place] [address] May, [facility] [place] [facility] [address] [id number] [place] [address] May, [facility] [place] [facility] [address] [id number] [place] [address] May, [facility] [place] [facility] [address] [id number] [place] [address] May, [facility] [place] [facility] [address] [id number] [place] [address] Apr, [facility] [place] [facility] [address] [id number] [place] [address] Apr, [facility] [place] [facility] [address] [id number] [place] [address] Apr, [facility] [place] [facility] [address] [id number] [place] [address] Apr, [facility] [place] [facility] [address] [id number] [place] [address] Apr, [facility] [place] [facility] [address] [id number] [place] [address] Apr, [facility] [place] [facility] [address] [id number] [place] [address] Apr, [facility] [place] [facility] [address] [id number] [place] [address] Apr, [facility] [place] [facility] [address] [id number] [place] [address] Apr, [facility] [place] [facility] [address] [id number] [place] [address] Mar, [facility] [place] [facility] [address] [id number] [place] [address] Mar, [facility] [place] [facility] [address] [id number] [place] [address] Mar, [facility] [place] [facility] [address] [id number] [place] [address] Mar, [facility] [place] [facility] [address] [id number] [place] [address] 08 Mar, 2013 [facility] [place] [facility] [address] [id number] [place] [address] 08 Mar, 2013 [facility] [place] [facility] [address] [id number] [place] [address] Mar, 2013 [facility] [place] [facility] [address] [id number] [place] [address] 08 Mar, 2013 [facility] [place] [facility] [address] [id number] [place] [address] 30 Sep, 2013 [facility] [place] [facility] [address] [id number] [place] [address] 30 Sep, 2013 [facility] [place] [facility] [address] [id number] [place] [address] 24 Feb, 2013 [facility] [place] [facility] [address] [id number] [place] [address] 24 Feb, 2013 [facility] [place] [facility] [address] [id number] [place] [address] 22 Feb, 2013 [facility] [place] [facility] [address] [id number] [place] [address] 22 Feb, 2013 [facility] [place] [facility] [address] [id number] [place] [address] 10 Feb, 2013 [facility] [place] [facility] [address] [id number] [place] [address] 10 Feb, 2013 [facility] [place] [facility] [address] [id number] [place] [address] 03 Sep, 2013 [facility] [place] [facility] [address] [id number] [place] [address] 03 Sep, 2013 [facility] [place] [facility] [address] [id number] [place] [address] 03 Sep, 2013 [facility] [place] [facility] [address] [id number] [place] [address] Feb, [facility] [place] [facility] [address] [id number] [place] [address] Feb, [facility] [place] [facility] [address] [id number] [place] [address] Feb, [facility] [place] [facility] [address] [id number] [place] [address] Jan, [facility] [place] [facility] [address] [id number] [place] [address] Jan, [facility] [place] [facility] [address] [id number] [place] [address] Dec, [facility] [place] [facility] [address] [id number] [place] [address] Dec, [facility] [place] [facility] [address] [id number] [place] [address] Dec, [facility] [place] [facility] [address] [id number] [place] [address] Dec, [facility] [place] [facility] [address] [id number] [place] [id number] Dec, [facility] [place] [facility] [address] [id number] [place] [address] Dec, [facility] [place] [facility] [address] [id number] [place] [address] Dec, [facility] [place] [facility] [address] [id number] [place] [address] Dec, [facility] [place] [facility] [address] [id number] [place] [address] Dec, [facility] [place] [facility] [address] [id number] [place] [address] Dec, [facility] [place] [facility] [address] [id number] [place] [address] Dec, [facility] [place] [facility] [address] [id number] [place] [address] Dec, 2013 [facility] [place] [facility] [address] [id number] [place] [address] Dec, 2013 [facility] [place] [facility] [address] [id number] [place] [address] Dec, 2013 [facility] [place] [facility] [address] [id number] [place] [address] Dec, 2013 [facility] [place] [facility] [address] [id number] [place] [address] Dec, 2013 [facility] [place] [facility] [address] [id number] [place] [address] Dec, [facility] [place] [facility] [address] [id number] [place] [address] Dec, [facility] [place] [facility] [address] [id number] [place] [address] Dec, [facility] [place] [facility] [address] [id number] [place] [address] Nov, [facility] [place] [facility] [address] [id number] [place] [address] Nov, [facility] [place] [facility] [address] [id number] [place] [address] Nov, [facility] [place] [facility] [address] [id number] [place] [address] Nov, [facility] [place] [facility] [address] [id number] [place] [address] Nov, [facility] [place] [facility] [address] [id number] [place] [address] Nov, [facility] [place] [facility] [address] [id number] [place] [address] Nov, [facility] [place] [facility] [address] [id number] [place] [address] Nov, [facility] [place] [facility] [address] [id number] [place] [address] Nov, [facility] [place] [facility] [address] [id number] [place] [address] October, [facility] [place] [facility] [address] [id number] [place] [address] October, [facility] [place] [facility] [address] [id number] [place] [address] October, [facility] [place] [facility] [address] [id number] [place] [address] October, [facility] [place] [facility] [address] [id number] [place] [address] October, [facility] [place] [facility] [address] [id number] [place] [address] October, [facility] [place] [facility] [address] [id number] [place] [address] October, [facility] [place] [facility] [address] [id number] [place] [address] October, [facility] [place] [facility] [address] [id number] [place] [address] Sep, [facility] [place] [facility] [address] [id number] [place] [address] Sep, [facility] [place] [facility] [address] [id number] [place] [address] Sep, [facility] [place] [facility] [address] [id number] [place] [address] Sep, [facility] [place] [facility] [address] [id number] [place] [address] Sep, [facility] [place] [facility] [address] [id number] [place] [address] Sep, [facility] [place] [facility] [address] [id number] [place] [address] Sep, [facility] [place] [facility] [address] [id number] [place] [address] Aug, [facility] [place] [facility] [address] [id number] [place] [address] Aug, [facility] [place] [facility] [address] [id number] [place] [address] Aug, [facility] [place] [facility] [address] [id number] [place] [address] Aug, [facility] [place] [facility] [address] [id number] [place] [address] Aug, [facility] [place] [facility] [address] [id number] [place] [address] Aug, [facility] [place] [facility] [address] [id number] [place] [address] Jul, [facility] [place] [facility] [address] [id number] [place] [address] Jul, [facility] [place] [facility] [address] [id number] [place] [address] Jul, [facility] [place] [facility] [address] [id number] [place] [address] Jul, [facility] [place] [facility] [address] [id number] [place] [address] Jul, [facility] [place] [facility] [address] [id number] [place] [address] Jul, [facility] [place] [facility] [address] [id number] [place] [address] Jun, [facility] [place] [facility] [address] [id number] [place] [address] Jun, [facility] [place] [facility] [address] [id number] [place] [place] [address] Jun, [facility] [place] [facility] [address] [id number] [place] [address] Jun, [facility] [address] [id number] [place] [address] Jun, [facility] [address] [id number] [place] [address] Jun, [facility] [address] [id number] [place] [address] Jun, [facility] [address] [id number] [place] [address] Jun, [facility] [address] [id number] [place] [address] Jun, [facility] [address] [id number] [place] [address] Jun, [facility] [address] [id number] [place] [address] Jun, [facility] [address] [id number] [place] [address] Jun, [facility] [address] [id number] [place] [address] Jun, [facility] [address] [id number] [place] [address] May, [facility] [address] [id number] [place] [address] May, [facility] [address] [id number] [place] [address] May, [facility] [place] [facility] [address] [id number] [place] [address] May, [facility] [address] [id number] [place] [address] May, [facility] [address] [id number] [place] [address] May, [facility] [address] [id number] [place] [address] 14 May, 2013 [facility] [place] [facility] [address] [id number] [place] [address] 12 May, 2013 [facility] [place] [facility] [address] [id number] [place] [address] 12 May, 2013 [facility] [place] [facility] [address] [id number] [place] [address] May, [facility] [place] [facility] [address] [id number] [place] [address] 11 May, 2013 [facility] [place] [facility] [address] [id number] [place] [address] 10 May, 2013 [facility] [place] [facility] [address] [id number] [place] [address] May, [facility] [place] [facility] [address] [id number] [place] [address] May, [facility] [place] [facility] [address] [id number] [place] [address] May, [facility] [place] [facility] [address] [id number] [place] [address] 08 May, 2013 [facility] [place] [facility] [address] [id number] [place] [address] 07 May, 2013 [facility] [place] [facility] [address] [id number] [place] [address] 06 May, 2013 [facility] [place] [facility] [address] [id number] [place] [address] May, [facility] [place] [facility] [address] [id number] [place] [address] May, [facility] [place] [facility] [address] [id number] [place] [address] May, [facility] [place] [facility] [address] [id number] [place] [address] Apr, [facility] [address] [id number] [place] [address] Apr, [facility] [place] [facility] [address] [id number] [place] [address] Apr, [facility] [place] [facility] [address] [id number] [place] [address] Apr, [facility] [place] [facility] [address] [id number] [place] [address] Mar, [facility] [place] [facility] [address] [id number] [place] [address] 23 Feb, 2013 [facility] [place] [facility] [address] [id number] [place] [address] 16 Feb, 2013 [facility] [address] [id number] [place] [address] 13 Feb, 2013 [facility] [place] [facility] [address] [id number] [place] [address] 10 Feb, 2013 [facility] [place] [facility] [address] [id number] [place] [address] 09 Feb, 2013 [facility] [place] [facility] [address] [id number] [place] [address] 09 Feb, 2013 [facility] [place] [facility] [address] [id number] [place] [address] Jan, [facility] [place] [facility] [address] [id number] [place] [address] Jan, [facility] [place] [facility] [address] [id number] [place] [address] Jan, [facility] [place] [facility] [address] [id number] [place] [address] Dec, [facility] [place] [facility] [address] [id number] [place] [address] Dec, [facility] [place] [facility] [address] [id number] [place] [address] 17 Dec, 2012 [facility] [place] [facility] [address] [id number] [place] [address] 15 Dec, 2012 [facility] [place] [facility] [address] [id number] [place] [address] Dec, [facility] [place] [facility] [address] [id number] [place] [address] Nov, [facility] [place] [facility] [address] [id number] [place] [address] Nov, [facility] [place] [facility] [address] [id number] [place] [address] Nov, [facility] [place] [facility] [address] [id number] [place] [address] Nov, [facility] [place] [facility] [address] [id number] [place] [address] Nov, [facility] [place] [facility] [address] [id number] [place] [address] Nov, [facility] [place] [facility] [address] [id number] [place] [address] Nov, [facility] [place] [facility] [address] [id number] [place] [address] Nov, [facility] [place] [facility] [address] [id number] [place] [address] Nov, [facility] [place] [facility] [address] [id number] [place] [address] Nov, [facility] [place] [facility] [address] [id number] [place] [address] October, [facility] [place] [facility] [address] [id number] [place] [address] October, [facility] [place] [facility] [address] [id number] [place] [address] Sep, [facility] [address] [id number] [place] [address] Sep, [facility] [place] [facility] [address] [id number] [place] [address] Sep, [facility] [address] [facility] [id number] [place] [address] Sep, [facility] [place] [facility] [address] [id number] [place] [address] Sep, [facility] [address] [id number] [place] [address] Aug, [facility] [place] [facility] [address] [id number] [place] [address] Aug, [facility] [address] [id number] [place] [address] Jul, [facility] [place] [facility] [address] [id number] [place] [address] Jul, [facility] [address] [id number] [place] [address] Jun, [facility] [address] [id number] [place] [address] Jun, [facility] [address] [id number] [place] [address] May, [facility] [place] [facility] [address] [id number] [place] [address] May, [facility] [place] [facility] [address] [id number] [place] [address] May, [facility] [place] [facility] [address] [facility] [id number] [place] [address] May, [facility] [place] [facility] [address] [facility] [id number] [place] [address] Apr, [facility] [place] [facility] [address] [id number] [place] [address] 27 Apr, 2012 [facility] [place] [facility] [address] [id number] [place] [address] 23 Apr, 2012 [facility] [place] [facility] [address] [id number] [place] [address] Apr, [facility] [place] [facility] [address] [id number] [place] [address] 20 Apr, 2012 [facility] [place] [facility] [address] [id number] [place] [address] 14 Apr, 2012 [facility] [place] [facility] [address] [id number] [place] [address], [place] [address] 14 Apr, 2012 [facility] [place] [facility] [address] [id number] [place] [address] Apr, [facility] [place] [facility] [address] [facility] [id number] [place] [address] Apr, [facility] [place] [facility] [address] [id number] [place] [address] Mar, [facility] [place] [facility] [address] [facility] [id number] [place] [address] Mar, [facility] [place] [facility] [address] [facility] [id number] [place] [address] Feb, [facility] [place] [facility] [address] [id number] [place] [address] Jan, [facility] [place] [facility] [address] [id number] [place] [address] Jan, [facility] [place] [facility] [address] [id number] [place] [address] Dec, [facility] [place] [facility] [address] [id number] [place] [address] Nov, [facility] [place] [facility] [address] [facility] [id number] [place] [address] Nov, [facility] [place] [facility] [address] [id number] [place] [address] October, [facility] [place] [facility] [address] [id number] [place] [address] October, [facility] [place] [facility] [address] [id number] [place] [address] Sep, [facility] [place] [facility] [address] [id number] [place] [address] Sep, [facility] [place] [facility] [address] [id number] [place] [address] May, [facility] [place] [facility] [address] [id number] [place] [address] Apr, [facility] [place] [facility] [address] [id number] [place] [address] Apr, [facility] [place] [facility] [address] [id number] [place] [address] Apr, [facility] [place] [facility] [address] [id number] [place] [address] Apr, [facility] [place] [facility] [address] [id number] [place] [address] Apr, [facility] [place] [facility] [address] [id number] [place] [address] Apr, [facility] [place] [facility] [address] [id number] [place] [address] Apr, [facility] [place] [facility] [address] [id number] [place] [address] Apr, [facility] [place] [facility] [address] [id number] [place] [address] Mar, [facility] [place] [facility] [address] [id number] [place] [address] Mar, [facility] [place] [facility] [address] [id number] [place] [address] Mar, [facility] [address] [facility] [id number] [place] [address] Mar, [facility] [address] [facility] [id number] [place] [address] Mar, [facility] [address] [facility] [id number] [place] [address] Mar, IMMUNIZATIONS No Known Immunizations SOCIAL HISTORY Never Assessed REASON FOR VISIT [facility] [place] PLAN OF CARE VITAL SIGNS MEDICATIONS No Known Medications RESULTS No Results PROCEDURES No Known procedures INSTRUCTIONS MEDICATIONS ADMINISTERED No Known Medications MEDICAL (GENERAL) HISTORY Type Description Date Medical History HTN Medical History Depression Medical History Arthritis Medical History COPD Surgical History Breast lump removed Surgical History Removal of cyst from ovary Surgical History cholecystectomy Surgical History Stomach surgeryx3 Hospitalization History Mental floor at [facility]
--- OUTSIDE RECORDS SUMMARY | 2018-10-27 16:03 | XMS REPORT ---
Author Author Migration, Doctor Organization [facility] Address Unknown Phone Unavailable Care Team Providers Care Back Hanger Name Role Phone Migration, Doctor Unavailable Unavailable PROBLEMS Type Condition ICD9-CM Code NVD81-AB Code Onset Dates Condition Status SNOMED Code Problem Presbyopia H52.4 Active 43392346 Problem Nondependent 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 Active 969255356 Problem Unspecified open-angle glaucoma, stage unspecified H40.10X0 Feb, Active 99033992 Problem Other chronic pain G89.29 Active 552661039 Problem Unspecified epilepsy without mention of intractable epilepsy G40.909 Active 95303021 Problem Hyperlipidemia, unspecified E78.5 Active 24050108 Problem Hypertension I10 Active 61392596 Problem Goiter E04.9 Active 9327243 Problem Multinodular goiter E04.2 Active 626527879 Problem Right-sided low back pain without sciatica M54.5 Active 215827344 Problem Depression F32.9 Active 89916739 Problem Insomnia G47.00 Active 544627589 Problem Arthralgia M25.50 Active 41305017 Problem Thyroid nodule E04.1 Active 466113577 Problem Anxiety disorder, unspecified F41.9 Active 466461601 Problem Chronic tension-type headache, intractable G44.221 Active 579038231 Problem Neuropathy G62.9 Active 662651491 Problem Acquired hypothyroidism E03.9 Active 339746040 Problem Cough R05 Active 42962989 Problem Carpal tunnel syndrome of left wrist G56.02 Active [id number] Problem Abnormal laboratory test R89.9 Active 791631279 Problem Esophageal reflux K21.9 Active 691515429 Problem COPD with exacerbation J44.1 Active 700865582 Problem Rheumatoid arthritis M06.9 Active 16111448 Problem Depressive disorder F32.9 Active 03717515 Problem Chronic obstructive pulmonary disease, unspecified COPD type J44.9 Active 18316629 Problem BMI 40.0-44.9, adult Z68.41 Active 023709428 Problem Reactive airway disease without complication, unspecified asthma severity, unspecified whether persistent J45.909 Active 770959106499 Problem Urge incontinence of urine N39.41 Active 98713114 ALLERGIES No Information ENCOUNTERS Encounter Location Date Diagnosis [facility] [id number] [place] [address] Jul, COPD with exacerbation J44.1 ; Viral upper respiratory tract infection J06.9 and Morbid obesity E66.01 [facility] [id number] [place] [address] Jun, Viral upper respiratory tract infection J06.9 [place] [id number] [place] [address] Apr, Abnormal laboratory test R89.9 [facility] [id number] [place] [address] Apr, Abnormal laboratory test R89.9 [place] [address] [address] Apr, Abnormal laboratory test R89.9 [facility] [id number] [place] [address] Apr, [facility] [id number] [place] [address] Apr, [facility] [id number] [place] [address] Apr, Nonintractable episodic headache, unspecified headache type R51 ; Urge incontinence of urine N39.41 ; BMI 40.0-44.9, adult Z68.41 ; Myalgia M79.10 and Acute cystitis without hematuria N30.00 [place] [address] [address] Mar, Nasal congestion R09.81 ; Low back pain M54.5 ; Reactive airway disease without complication, unspecified asthma severity, unspecified whether persistent J45.909 ; Other chronic pain G89.29 ; Acute cystitis with hematuria N30.01 and BMI 40.0-44.9, adult Z68.41 [facility] [id number] [place] [address] Mar, Acute cystitis with hematuria N30.01 [facility] [id number] [place] [address] Mar, BMI 40.0-44.9, adult Z68.41 ; Acute cystitis with hematuria N30.01 ; Acute bilateral low back pain without sciatica M54.5 and Nausea R11.0 [place] [address] [address] Mar, Hypertension I10 ; Acquired hypothyroidism E03.9 ; Esophageal reflux K21.9 ; Chronic obstructive pulmonary disease, unspecified COPD type J44.9 and BMI 40.0-44.9, adult Z68.[address] [address] Mar, Hypertension I10 [place] [address] [address] Nov, Hyperlipidemia, unspecified E78.[address] [address] October, Chest pain, unspecified type R07.9 and Acquired hypothyroidism E03.9 [place] [id number] [place] [address] October, Chest pain, unspecified type R07.9 ; Family history of coronary artery disease Z82.49 ; Carpal tunnel syndrome of left wrist G56.02 ; Hypertension I10 ; Esophageal reflux K21.9 ; Arthralgia M25.50 ; Acquired hypothyroidism E03.9 ; Cough R05 ; Nausea R11.0 ; Weight gain R63.5 and BMI 45.0-49.9, adult Z68.42 [place] [id number] [place] [address] Jun, Acquired hypothyroidism E03.9 and Cough R05 [address] [id number] [place] [address] May, [place] [address] [address] Feb, Tarsal tunnel syndrome of both lower extremities G57.53 and Neuropathy G62.9 [place] [address] [address] Dec, Pleuritis R09.1 [place] [address] [address] Nov, [place] [address] [address] October, Arthralgia, unspecified joint M25.50 and Allergy, initial encounter T78.40XA [place] [address] [address] October, [place] [address] [address] October, Acute recurrent maxillary sinusitis J01.01 and Arthralgia M25.50 [place] [address] [address] Sep, Pharyngitis due to other organism J02.8 [place] [id number] [place] [address] Aug, Acute nasopharyngitis J00 [place] [address] [address] Aug, Multinodular goiter E04.2 [place] [address] [address] Aug, Thyroid nodule E04.1 [place] [id number] [place] [address] Jul, Tarsal tunnel syndrome of both lower extremities G57.53 [place] [address] [place] [address] Jun, Pneumonia due to infectious organism, unspecified laterality, unspecified part of lung J18.9 [place] [address] [address] Jun, Bronchospasm with bronchitis, acute J20.9 [place] [address] [address] May, Acute non-recurrent frontal sinusitis J01.10 [place] [address] [address] May, Flat foot [pes planus] (acquired), left foot M21.42 ; Flat foot [pes planus] (acquired), right foot M21.41 and Neuropathy G62.9 [place] [address] [address] Apr, Chronic tension-type headache, intractable G44.221 ; Right lower quadrant abdominal pain R10.31 ; Cervicalgia M54.2 ; Acute gastritis without hemorrhage, unspecified gastritis type K29.00 and Hypertension I10 [place] [address] [address] Mar, Depression F32.9 and Anxiety disorder, unspecified F41.9 [place] [id number] [place] [address] Feb, Depressive disorder F32.9 and Anxiety disorder, unspecified F41.9 [place] [id number] [place] [address] Jan, Dysuria R30.0 ; Lower abdominal pain R10.30 ; Acute bilateral low back pain without sciatica M54.5 ; Nausea and vomiting, unspecified intactability, vomiting of unspecified type R11.2 ; Pain in right foot M79.671 and Pain of left foot M79.672 [place] [id number] [place] [address] Dec, Urinary tract infection, site not specified N39.0 [facility] [address] [address] Dec, [facility] [id number] [place] [address] Nov, [facility] [id number] [place] [address] Nov, Dysuria R30.0 [facility] [id number] [place] [address] Nov, Dysuria R30.0 and Acute cystitis with hematuria N30.01 [facility] [id number] [place] [address] October, Nausea R11.0 [facility] [id number] [place] [address] October, Thyroid nodule E04.1 ; Carpal tunnel syndrome, left upper limb G56.02 ; Carpal tunnel syndrome, right upper limb G56.01 and Constipation, unspecified constipation type K59.00 [facility] [address] [place] [address] October, [facility] [address] [address] October, Thyroid nodule E04.1 [facility] [address] [place] [address] October, Cold thyroid nodule E04.1 [facility] [address] [address] October, [facility] [id number] [place] [address] Sep, Thyroid nodule E04.1 [facility] [address] [address] Sep, Thyroid nodule E04.1 [facility] [id number] [place] [address] Sep, Thyroid nodule E04.1 ; Hypertension I10 ; Esophageal reflux K21.9 and Hyperlipidemia, unspecified E78.5 [place] [address] [address] 14 Aug, 2015 Other chronic pain G89.29 ; Sinusitis J32.9 and Hypertension I10 [place] [address] [address] Jul, [place] [address] [address] 15 Jul, 2015 [place] [address] [address] 10 Jul, 2015 Insomnia G47.00 and Arthralgia M25.50 [place] [address] [address] 10 Jul, 2015 Depressive disorder F32.9 and Anxiety disorder, unspecified F41.9 [place] [address] [address] May, Right-sided low back pain without sciatica M54.5 and Depression F32.9 [place] [id number] [place] [address] Apr, Hematuria R31.9 [place] [address] [address] Mar, Other chronic pain G89.29 [place] [address] [address] Mar, Other chronic pain G89.29 [place] [address] [address] Feb, [place] [address] [address] 22 Feb, 2015 Other chronic pain 338.29 ; Dysuria 788.1 ; UTI (urinary tract infection) 599.0 ; Insomnia 780.52 ; Hot flashes 627.2 and Hypertension 401.9 [facility] [address] [address] Feb, Dysuria 788.1 [facility] [address] [address] Feb, [facility] [id number] [place] [address] Jan, [facility] [address] [place] [address] Jan, [facility] [id number] [place] [address] Jan, Fibromyalgia 729.1 ; Hypertension 401.9 ; Dysthymia 300.4 and Hot flashes 627.2 [facility] [id number] [address] Dec, [facility] [address] [address] Dec, [facility] [address] [place] [address] Dec, [facility] [address] [address] Nov, Other chronic pain 338.29 [facility] [address] [address] October, [facility] [address] [address] October, [facility] [address] [address] Sep, [facility] [address] [address] Sep, [facility] [id number] [address] Aug, [facility] [place] [facility] [address] [id number] [place] [address] Aug, [facility] [place] [facility] [address] [id number] [place] [address] Aug, [facility] [place] [facility] [address] [id number] [place] [address] Aug, [facility] [place] [facility] [address] [id number] [place] [address] Aug, [facility] [place] [facility] [address] [id number] [place] [address] Aug, [facility] [place] [facility] [address] [id number] [place] [address] Aug, [facility] [place] [facility] [address] [id number] [place] [address] Aug, [facility] [place] [facility] [address] [id number] [place] [address] Aug, [facility] [place] [facility] [address] [id number] [place] [address] Aug, [facility] [place] [facility] [address] [id number] [place] [address] Aug, [facility] [place] [facility] [address] [id number] [place] [address] Aug, [facility] [place] [facility] [address] [id number] [place] [address] Aug, [facility] [place] [facility] [address] [id number] [place] [address] Aug, [facility] [place] [facility] [address] [id number] [place] [address] Jul, [facility] [place] [facility] [address] [id number] [place] [address] Jul, [facility] [place] [facility] [address] [id number] [place] [address] Jul, [facility] [place] [facility] [address] [id number] [place] [address] Jul, [facility] [place] [facility] [address] [id number] [place] [address] Jul, [facility] [place] [facility] [address] [id number] [place] [address] Jul, [facility] [place] [facility] [address] [id number] [place] [address] Jun, [facility] [place] [facility] [address] [id number] [place] [address] Jun, [facility] [place] [facility] [address] [id number] [place] [address] Jun, [facility] [place] [facility] [address] [id number] [place] [address] Jun, [facility] [place] [facility] [address] [id number] [place] [address] May, [facility] [place] [facility] [address] [id number] [place] [address] May, [facility] [place] [facility] [address] [id number] [place] [address] May, [facility] [place] [facility] [address] [id number] [place] [address] May, [facility] [place] [facility] [address] [id number] [place] [address] May, [facility] [place] [facility] [address] [id number] [place] [address] May, [facility] [place] [facility] [address] [id number] [place] [address] May, [facility] [place] [facility] [address] [id number] [address] May, [facility] [place] [facility] [address] [id number] [place] [address] May, [facility] [place] [facility] [address] [id number] [place] [address] May, [facility] [place] [facility] [address] [id number] [place] [address] Apr, [facility] [place] [facility] [address] [id number] [place] [address] Apr, [facility] [place] [facility] [address] [id number] [place] [address] Apr, [facility] [place] [facility] [address] [id number] [place] [address] Apr, [facility] [place] [facility] [address] [id number] [place] [address] Apr, [facility] [place] [facility] [address] [id number] [place] [address] Apr, [facility] [place] [facility] [address] [id number] [place] [address] Apr, [facility] [place] [facility] [address] [id number] [place] [address] Apr, [facility] [place] [facility] [address] [id number] [address] Apr, [facility] [place] [facility] [address] [id number] [address] Mar, [facility] [place] [facility] [address] [id number] [place] [address] Mar, [facility] [place] [facility] [address] [id number] [place] [address] Mar, [facility] [place] [facility] [address] [id number] [place] [address] Mar, [facility] [place] [facility] [address] [id number] [place] [address] 08 Mar, 2013 [facility] [place] [facility] [address] [id number] [place] [address] 08 Mar, 2013 [facility] [place] [facility] [address] [id number] [place] [address] Mar, 2013 [facility] [place] [facility] [address] [id number] [place] [address] 08 Mar, 2013 [facility] [place] [facility] [address] [id number] [place] [address] 30 Sep, 2013 [facility] [place] [facility] [address] [id number] [place] [address] 30 Sep, 2013 [facility] [place] [facility] [address] [id number] [place] [address] 24 Feb, 2013 [facility] [place] [facility] [address] [id number] [place] [address] 24 Feb, 2013 [facility] [place] [facility] [address] [id number] [place] [address] 22 Feb, 2013 [facility] [place] [facility] [address] [id number] [place] [address] 22 Feb, 2013 [facility] [place] [facility] [address] [id number] [place] [address] 10 Feb, 2013 [facility] [place] [facility] [address] [id number] [place] [address] 10 Feb, 2013 [facility] [place] [facility] [address] [id number] [place] [address] 03 Sep, 2013 [facility] [place] [facility] [address] [id number] [place] [address] 03 Sep, 2013 [facility] [place] [facility] [address] [id number] [place] [address] 03 Sep, 2013 [facility] [place] [facility] [address] [id number] [place] [address] Feb, [facility] [place] [facility] [address] [id number] [place] [address] Feb, [facility] [place] [facility] [address] [id number] [place] [address] Feb, [facility] [place] [facility] [address] [id number] [place] [address] Jan, [facility] [place] [facility] [address] [id number] [place] [address] Jan, [facility] [place] [facility] [address] [id number] [place] [address] Dec, [facility] [place] [facility] [address] [id number] [place] [address] Dec, [facility] [place] [facility] [address] [id number] [place] [address] Dec, [facility] [place] [facility] [address] [id number] [place] [address] Dec, [facility] [place] [facility] [address] [id number] [place] [id number] Dec, [facility] [place] [facility] [address] [id number] [place] [address] Dec, [facility] [place] [facility] [address] [id number] [place] [address] Dec, [facility] [place] [facility] [address] [id number] [place] [address] Dec, [facility] [place] [facility] [address] [id number] [place] [address] Dec, [facility] [place] [facility] [address] [id number] [place] [address] Dec, [facility] [place] [facility] [address] [id number] [place] [address] Dec, [facility] [place] [facility] [address] [id number] [place] [address] Dec, 2013 [facility] [place] [facility] [address] [id number] [place] [address] Dec, 2013 [facility] [place] [facility] [address] [id number] [place] [address] Dec, 2013 [facility] [place] [facility] [address] [id number] [place] [address] Dec, 2013 [facility] [place] [facility] [address] [id number] [place] [address] Dec, 2013 [facility] [place] [facility] [address] [id number] [place] [address] Dec, [facility] [place] [facility] [address] [id number] [place] [address] Dec, [facility] [place] [facility] [address] [id number] [place] [address] Dec, [facility] [place] [facility] [address] [id number] [place] [address] Nov, [facility] [place] [facility] [address] [id number] [place] [address] Nov, [facility] [place] [facility] [address] [id number] [place] [address] Nov, [facility] [place] [facility] [address] [id number] [place] [address] Nov, [facility] [place] [facility] [address] [id number] [place] [address] Nov, [facility] [place] [facility] [address] [id number] [place] [address] Nov, [facility] [place] [facility] [address] [id number] [place] [address] Nov, [facility] [place] [facility] [address] [id number] [place] [address] Nov, [facility] [place] [facility] [address] [id number] [place] [address] Nov, [facility] [place] [facility] [address] [id number] [place] [address] October, [facility] [place] [facility] [address] [id number] [place] [address] October, [facility] [place] [facility] [address] [id number] [place] [address] October, [facility] [place] [facility] [address] [id number] [place] [address] October, [facility] [place] [facility] [address] [id number] [place] [address] October, [facility] [place] [facility] [address] [id number] [place] [address] October, [facility] [place] [facility] [address] [id number] [place] [address] October, [facility] [place] [facility] [address] [id number] [place] [address] October, [facility] [place] [facility] [address] [id number] [place] [address] Sep, [facility] [place] [facility] [address] [id number] [place] [address] Sep, [facility] [place] [facility] [address] [id number] [place] [address] Sep, [facility] [place] [facility] [address] [id number] [place] [address] Sep, [facility] [place] [facility] [address] [id number] [place] [address] Sep, [facility] [place] [facility] [address] [id number] [place] [address] Sep, [facility] [place] [facility] [address] [id number] [place] [address] Sep, [facility] [place] [facility] [address] [id number] [place] [address] Aug, [facility] [place] [facility] [address] [id number] [place] [address] Aug, [facility] [place] [facility] [address] [id number] [place] [address] Aug, [facility] [place] [facility] [address] [id number] [place] [address] Aug, [facility] [place] [facility] [address] [id number] [place] [address] Aug, [facility] [place] [facility] [address] [id number] [place] [address] Aug, [facility] [place] [facility] [address] [id number] [place] [address] Jul, [facility] [place] [facility] [address] [id number] [place] [address] Jul, [facility] [place] [facility] [address] [id number] [place] [address] Jul, [facility] [place] [facility] [address] [id number] [place] [address] Jul, [facility] [place] [facility] [address] [id number] [place] [address] Jul, [facility] [place] [facility] [address] [id number] [place] [address] Jul, [facility] [place] [facility] [address] [id number] [place] [address] Jun, [facility] [place] [facility] [address] [id number] [place] [address] Jun, [facility] [place] [facility] [address] [id number] [place] [address] Jun, [facility] [place] [facility] [address] [id number] [place] [address] Jun, [facility] [address] [id number] [place] [address] Jun, [facility] [address] [id number] [place] [address] Jun, [facility] [address] [id number] [place] [address] Jun, [facility] [address] [id number] [place] [address] Jun, [facility] [address] [id number] [place] [address] Jun, [facility] [address] [id number] [place] [address] Jun, [facility] [address] [id number] [place] [address] Jun, [facility] [address] [id number] [place] [address] Jun, [facility] [address] [id number] [place] [address] Jun, [facility] [address] [id number] [place] [address] May, [facility] [address] [id number] [place] [address] May, [facility] [address] [id number] [place] [address] May, [facility] [place] [facility] [address] [id number] [place] [address] May, [facility] [address] [id number] [place] [address] May, [facility] [address] [id number] [place] [address] May, [facility] [address] [id number] [place] [address] 14 May, 2013 [facility] [place] [facility] [address] [id number] [place] [address] 12 May, 2013 [facility] [place] [facility] [address] [id number] [place] [address] 12 May, 2013 [facility] [place] [facility] [address] [id number] [place] [address] May, [facility] [place] [facility] [address] [id number] [place] [address] 11 May, 2013 [facility] [place] [facility] [address] [id number] [place] [address] 10 May, 2013 [facility] [place] [facility] [address] [id number] [place] [address] May, [facility] [place] [facility] [address] [id number] [place] [address] May, [facility] [place] [facility] [address] [id number] [place] [address] May, [facility] [place] [facility] [address] [id number] [place] [address] 08 May, 2013 [facility] [place] [facility] [address] [id number] [place] [address] 07 May, 2013 [facility] [place] [facility] [address] [id number] [place] [address] 06 May, 2013 [facility] [place] [facility] [address] [id number] [place] [address] May, [facility] [place] [facility] [address] [id number] [place] [address] May, [facility] [place] [facility] [address] [id number] [place] [address] May, [facility] [place] [facility] [address] [id number] [place] [address] Apr, [facility] [address] [id number] [place] [address] Apr, [facility] [place] [facility] [address] [id number] [place] [address] Apr, [facility] [place] [facility] [address] [id number] [place] [address] Apr, [facility] [place] [facility] [address] [id number] [place] [address] Mar, [facility] [place] [facility] [address] [id number] [place] [address] 23 Feb, 2013 [facility] [place] [facility] [address] [id number] [place] [address] 16 Feb, 2013 [facility] [address] [id number] [place] [address] 13 Feb, 2013 [facility] [place] [facility] [address] [id number] [place] [address] 10 Feb, 2013 [facility] [place] [facility] [address] [id number] [place] [address] 09 Feb, 2013 [facility] [place] [facility] [address] [id number] [place] [address] 09 Feb, 2013 [facility] [place] [facility] [address] [id number] [place] [address] Jan, [facility] [place] [facility] [address] [id number] [place] [address] Jan, [facility] [place] [facility] [address] [id number] [place] [address] Jan, [facility] [place] [facility] [address] [id number] [place] [address] Dec, [facility] [place] [facility] [address] [id number] [place] [address] Dec, [facility] [place] [facility] [address] [id number] [place] [address] 17 Dec, 2012 [facility] [place] [facility] [address] [id number] [place] [address] 15 Dec, 2012 [facility] [place] [facility] [address] [id number] [place] [address] Dec, [facility] [place] [facility] [address] [id number] [place] [address] Nov, [facility] [place] [facility] [address] [id number] [place] [address] Nov, [facility] [place] [facility] [address] [id number] [place] [address] Nov, [facility] [place] [facility] [address] [id number] [place] [address] Nov, [facility] [place] [facility] [address] [id number] [place] [address] Nov, [facility] [place] [facility] [address] [id number] [place] [address] Nov, [facility] [place] [facility] [address] [id number] [place] [address] Nov, [facility] [place] [facility] [address] [id number] [place] [address] Nov, [facility] [place] [facility] [address] [id number] [place] [address] Nov, [facility] [place] [facility] [address] [id number] [place] [address] Nov, [facility] [place] [facility] [address] [id number] [place] [address] October, [facility] [place] [facility] [address] [id number] [place] [address] October, [facility] [place] [facility] [address] [id number] [place] [address] Sep, [facility] [address] [id number] [place] [address] Sep, [facility] [place] [facility] [address] [id number] [place] [address] Sep, [facility] [address] [facility] [id number] [place] [address] Sep, [facility] [place] [facility] [address] [id number] [place] [address] Sep, [facility] [address] [id number] [place] [address] Aug, [facility] [place] [facility] [address] [id number] [place] [address] Aug, [facility] [address] [id number] [place] [address] Jul, [facility] [place] [facility] [address] [id number] [place] [address] Jul, [facility] [address] [id number] [place] [address] Jun, [facility] [address] [id number] [place] [address] Jun, [facility] [address] [id number] [place] [address] May, [facility] [place] [facility] [address] [id number] [place] [address] May, [facility] [place] [facility] [address] [id number] [place] [address] May, [facility] [place] [facility] [address] [facility] [id number] [place] [address] May, [facility] [place] [facility] [address] [facility] [id number] [place] [address] Apr, [facility] [place] [facility] [address] [id number] [place] [address] 27 Apr, 2012 [facility] [place] [facility] [address] [id number] [place] [address] 23 Apr, 2012 [facility] [place] [facility] [address] [id number] [place] [address] Apr, [facility] [place] [facility] [address] [id number] [place] [address] 20 Apr, 2012 [facility] [place] [facility] [address] [id number] [place] [address] 14 Apr, 2012 [facility] [place] [facility] [address] [id number] [place] [address], [place] [address] 14 Apr, 2012 [facility] [place] [facility] [address] [id number] [place] [address] Apr, [facility] [place] [facility] [address] [facility] [id number] [place] [address] Apr, [facility] [place] [facility] [address] [id number] [place] [address] Mar, [facility] [place] [facility] [address] [facility] [id number] [place] [address] Mar, [facility] [place] [facility] [address] [facility] [id number] [place] [address] Feb, [facility] [place] [facility] [address] [id number] [place] [address] Jan, [facility] [place] [facility] [address] [id number] [place] [address] Jan, [facility] [place] [facility] [address] [id number] [place] [address] Dec, [facility] [place] [facility] [address] [id number] [place] [address] Nov, [facility] [place] [facility] [address] [facility] [id number] [place] [address] Nov, [facility] [place] [facility] [address] [id number] [place] [address] October, [facility] [place] [facility] [address] [id number] [place] [address] October, [facility] [place] [facility] [address] [id number] [place] [address] Sep, [facility] [place] [facility] [address] [id number] [place] [address] Sep, [facility] [place] [facility] [address] [id number] [place] [address] May, [facility] [place] [facility] [address] [id number] [place] [address] Apr, [facility] [place] [facility] [address] [id number] [place] [address] Apr, [facility] [place] [facility] [address] [id number] [place] [address] Apr, [facility] [place] [facility] [address] [id number] [place] [address] Apr, [facility] [place] [facility] [address] [id number] [place] [address] Apr, [facility] [place] [facility] [address] [id number] [place] [address] Apr, [facility] [place] [facility] [address] [id number] [place] [address] Apr, [facility] [place] [facility] [address] [id number] [place] [address] Apr, [facility] [place] [facility] [address] [id number] [place] [address] Mar, [facility] [place] [facility] [address] [id number] [place] [address] Mar, [facility] [place] [facility] [address] [id number] [place] [address] Mar, [facility] [address] [facility] [id number] [place] [address] Mar, [facility] [address] [facility] [id number] [place] [address] Mar, [facility] [address] [facility] [id number] [place] [address] Mar, IMMUNIZATIONS No Known Immunizations SOCIAL HISTORY Never Assessed REASON FOR VISIT [facility] PLAN OF CARE VITAL SIGNS MEDICATIONS No [...] Stomach surgeryx3 Hospitalization History Mental floor at [facility]
--- OUTSIDE RECORDS SUMMARY | 2018-10-27 16:03 | XMS REPORT ---
Author Author Migration, Doctor Organization [facility] Address Unknown Phone Unavailable Care Team Providers Care Conductor/Engineer Name Role Phone Migration, Doctor Unavailable Unavailable PROBLEMS Type Condition ICD9-CM Code PZJ67-QT Code Onset Dates Condition Status SNOMED Code Problem Presbyopia H52.4 Active 27750277 Problem Nondependent 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 Active 248661957 Problem Unspecified open-angle glaucoma, stage unspecified H40.10X0 Feb, Active 15168666 Problem Other chronic pain G89.29 Active 547071679 Problem Unspecified epilepsy without mention of intractable epilepsy G40.909 Active 39012429 Problem Hyperlipidemia, unspecified E78.5 Active 71600441 Problem Hypertension I10 Active 35661234 Problem Goiter E04.9 Active 3351253 Problem Multinodular goiter E04.2 Active 746027545 Problem Right-sided low back pain without sciatica M54.5 Active 098569043 Problem Depression F32.9 Active 52599783 Problem Insomnia G47.00 Active 683684907 Problem Arthralgia M25.50 Active 94151857 Problem Thyroid nodule E04.1 Active 972906483 Problem Anxiety disorder, unspecified F41.9 Active 663138380 Problem Chronic tension-type headache, intractable G44.221 Active 465460619 Problem Neuropathy G62.9 Active 719796723 Problem Acquired hypothyroidism E03.9 Active 389418385 Problem Cough R05 Active 28031329 Problem Carpal tunnel syndrome of left wrist G56.02 Active [id number] Problem Abnormal laboratory test R89.9 Active 988856980 Problem Esophageal reflux K21.9 Active 900856415 Problem COPD with exacerbation J44.1 Active 795282587 Problem Rheumatoid arthritis M06.9 Active 44332648 Problem Depressive disorder F32.9 Active 53250622 Problem Chronic obstructive pulmonary disease, unspecified COPD type J44.9 Active 56844385 Problem BMI 40.0-44.9, adult Z68.41 Active 040583047 Problem Reactive airway disease without complication, unspecified asthma severity, unspecified whether persistent J45.909 Active 351155046557 Problem Urge incontinence of urine N39.41 Active 48237904 ALLERGIES No Information ENCOUNTERS Encounter Location Date Diagnosis [facility] [id number] [place] [address] Jul, COPD with exacerbation J44.1 ; Viral upper respiratory tract infection J06.9 and Morbid obesity E66.01 [facility] [id number] [place] [address] Jun, Viral upper respiratory tract infection J06.9 [facility] [facility] [id number] [place] [address] Apr, Abnormal laboratory test R89.9 [facility] [facility] [id number] [place] [address] Apr, Abnormal laboratory test R89.9 [place] [address] [address] Apr, Abnormal laboratory test R89.9 [facility] [id number] [place] [address] Apr, [facility] [facility] [id number] [place] [address] Apr, [facility] [facility] [id number] [place] [address] Apr, Nonintractable episodic headache, unspecified headache type R51 ; Urge incontinence of urine N39.41 ; BMI 40.0-44.9, adult Z68.41 ; Myalgia M79.10 and Acute cystitis without hematuria N30.00 [place] [address] [address] Mar, Nasal congestion R09.81 ; Low back pain M54.5 ; Reactive airway disease without complication, unspecified asthma severity, unspecified whether persistent J45.909 ; Other chronic pain G89.29 ; Acute cystitis with hematuria N30.01 and BMI 40.0-44.9, adult Z68.41 [facility] [id number] [place] [address] Mar, Acute cystitis with hematuria N30.01 [facility] [id number] [place] [address] Mar, BMI 40.0-44.9, adult Z68.41 ; Acute cystitis with hematuria N30.01 ; Acute bilateral low back pain without sciatica M54.5 and Nausea R11.0 [place] [address] [address] Mar, Hypertension I10 ; Acquired hypothyroidism E03.9 ; Esophageal reflux K21.9 ; Chronic obstructive pulmonary disease, unspecified COPD type J44.9 and BMI 40.0-44.9, adult Z68.[address] [address] Mar, Hypertension I10 [place] [address] [address] Nov, Hyperlipidemia, unspecified E78.[address] [address] October, Chest pain, unspecified type R07.9 and Acquired hypothyroidism E03.9 [address] [id number] [place] [address] October, Chest pain, unspecified type R07.9 ; Family history of coronary artery disease Z82.49 ; Carpal tunnel syndrome of left wrist G56.02 ; Hypertension I10 ; Esophageal reflux K21.9 ; Arthralgia M25.50 ; Acquired hypothyroidism E03.9 ; Cough R05 ; Nausea R11.0 ; Weight gain R63.5 and BMI 45.0-49.9, adult Z68.42 [id number] [place] [address] Jun, Acquired hypothyroidism E03.9 and Cough R05 [address] [id number] [place] [address] May, [place] [address] [address] Feb, Tarsal tunnel syndrome of both lower extremities G57.53 and Neuropathy G62.9 [place] [address] [address] Dec, Pleuritis R09.1 [place] [address] [address] Nov, [place] [address] [address] October, Arthralgia, unspecified joint M25.50 and Allergy, initial encounter T78.40XA [place] [address] [address] October, [place] [address] [address] October, Acute recurrent maxillary sinusitis J01.01 and Arthralgia M25.50 [place] [address] [address] Sep, Pharyngitis due to other organism J02.8 [place] [id number] [place] [address] Aug, Acute nasopharyngitis J00 [place] [address] [address] Aug, Multinodular goiter E04.2 [place] [address] [address] Aug, Thyroid nodule E04.1 [place] [id number] [place] [address] Jul, Tarsal tunnel syndrome of both lower extremities G57.53 [place] [address] [place] [address] Jun, Pneumonia due to infectious organism, unspecified laterality, unspecified part of lung J18.9 [place] [address] [address] Jun, Bronchospasm with bronchitis, acute J20.9 [place] [address] [address] May, Acute non-recurrent frontal sinusitis J01.10 [place] [address] [address] May, Flat foot [pes planus] (acquired), left foot M21.42 ; Flat foot [pes planus] (acquired), right foot M21.41 and Neuropathy G62.9 [place] [address] [address] Apr, Chronic tension-type headache, intractable G44.221 ; Right lower quadrant abdominal pain R10.31 ; Cervicalgia M54.2 ; Acute gastritis without hemorrhage, unspecified gastritis type K29.00 and Hypertension I10 [place] [address] [address] Mar, Depression F32.9 and Anxiety disorder, unspecified F41.9 [place] [id number] [place] [address] Feb, Depressive disorder F32.9 and Anxiety disorder, unspecified F41.9 [place] [id number] [place] [address] Jan, Dysuria R30.0 ; Lower abdominal pain R10.30 ; Acute bilateral low back pain without sciatica M54.5 ; Nausea and vomiting, unspecified intactability, vomiting of unspecified type R11.2 ; Pain in right foot M79.671 and Pain of left foot M79.672 [place] [id number] [place] [address] Dec, Urinary tract infection, site not specified N39.0 [facility] [address] [address] Dec, [facility] [id number] [place] [address] Nov, [facility] [id number] [place] [address] Nov, Dysuria R30.0 [facility] [id number] [place] [address] Nov, Dysuria R30.0 and Acute cystitis with hematuria N30.01 [facility] [id number] [place] [address] October, Nausea R11.0 [facility] [id number] [place] [address] October, Thyroid nodule E04.1 ; Carpal tunnel syndrome, left upper limb G56.02 ; Carpal tunnel syndrome, right upper limb G56.01 and Constipation, unspecified constipation type K59.00 [facility] [address] [place] [address] October, [facility] [address] [address] October, Thyroid nodule E04.1 [facility] [address] [place] [address] October, Cold thyroid nodule E04.1 [facility] [address], [place] [address] October, [facility] [id number] [place] [address] Sep, Thyroid nodule E04.1 [facility] [address] [address] Sep, Thyroid nodule E04.1 [facility] [id number] [place] [address] Sep, Thyroid nodule E04.1 ; Hypertension I10 ; Esophageal reflux K21.9 and Hyperlipidemia, unspecified E78.5 [place] [address] [address] 14 Aug, 2015 Other chronic pain G89.29 ; Sinusitis J32.9 and Hypertension I10 [place] [address] [address] Jul, [place] [address] [address] 15 Jul, 2015 [place] [address] [address] 10 Jul, 2015 Insomnia G47.00 and Arthralgia M25.50 [place] [address] [address] 10 Jul, 2015 Depressive disorder F32.9 and Anxiety disorder, unspecified F41.9 [place] [address] [address] May, Right-sided low back pain without sciatica M54.5 and Depression F32.9 [place] [id number] [place] [address] Apr, Hematuria R31.9 [place] [address] [address] Mar, Other chronic pain G89.29 [place] [address] [address] Mar, Other chronic pain G89.29 [place] [address] [address] Feb, [place] [address] [address] 22 Feb, 2015 Other chronic pain 338.29 ; Dysuria 788.1 ; UTI (urinary tract infection) 599.0 ; Insomnia 780.52 ; Hot flashes 627.2 and Hypertension 401.9 [facility] [address], [place] [address] Feb, Dysuria 788.1 [facility] [address], [place] [address] Feb, [facility] [id number] [place] [address] Jan, [facility] [id number] [place] [address] Jan, [facility] [id number] [place] [address] Jan, Fibromyalgia 729.1 ; Hypertension 401.9 ; Dysthymia 300.4 and Hot flashes 627.2 [facility] [id number] [address] Dec, [facility] [address], [place] [address] Dec, [facility] [address] [place] [address] Dec, [facility] [address], [place] [address] Nov, Other chronic pain 338.29 [facility] [address], [place] [address] October, [facility] [address], [place] [address] October, [facility] [address], [place] [address] Sep, [facility] [address], [place] [address] Sep, [facility] [id number] [address] Aug, [facility] [place] [facility] [address] [id number] [place] [address] Aug, [facility] [place] [facility] [address] [id number] [place] [address] Aug, [facility] [place] [facility] [address] [id number] [place] [address] Aug, [facility] [place] [facility] [address] [id number] [place] [address] Aug, [facility] [place] [facility] [address] [id number] [place] [address] Aug, [facility] [place] [facility] [address] [id number] [place] [address] Aug, [facility] [place] [facility] [address] [id number] [place] [address] Aug, [facility] [place] [facility] [address] [id number] [place] [address] Aug, [facility] [place] [facility] [address] [id number] [place] [address] Aug, [facility] [place] [facility] [address] [id number] [place] [address] Aug, [facility] [place] [facility] [address] [id number] [place] [address] Aug, [facility] [place] [facility] [address] [id number] [place] [address] Aug, [facility] [place] [facility] [address] [id number] [place] [address] Aug, [facility] [place] [facility] [address] [id number] [place] [address] Jul, [facility] [place] [facility] [address] [id number] [place] [address] Jul, [facility] [place] [facility] [address] [id number] [place] [address] Jul, [facility] [place] [facility] [address] [id number] [place] [address] Jul, [facility] [place] [facility] [address] [id number] [place] [address] Jul, [facility] [place] [facility] [address] [id number] [place] [address] Jul, [facility] [place] [facility] [address] [id number] [place] [address] Jun, [facility] [place] [facility] [address] [id number] [place] [address] Jun, [facility] [place] [facility] [address] [id number] [place] [address] Jun, [facility] [place] [facility] [address] [id number] [place] [address] Jun, [facility] [place] [facility] [address] [id number] [place] [address] May, [facility] [place] [facility] [address] [id number] [place] [address] May, [facility] [place] [facility] [address] [id number] [place] [address] May, [facility] [place] [facility] [address] [id number] [place] [address] May, [facility] [place] [facility] [address] [id number] [place] [address] May, [facility] [place] [facility] [address] [id number] [place] [address] May, [facility] [place] [facility] [address] [id number] [place] [address] May, [facility] [place] [facility] [address] [id number], [place] [address] May, [facility] [place] [facility] [address] [id number] [place] [address] May, [facility] [place] [facility] [address] [id number] [place] [address] May, [facility] [place] [facility] [address] [id number] [place] [address] Apr, [facility] [place] [facility] [address] [id number] [place] [address] Apr, [facility] [place] [facility] [address] [id number] [place] [address] Apr, [facility] [place] [facility] [address] [id number] [place] [address] Apr, [facility] [place] [facility] [address] [id number] [place] [address] Apr, [facility] [place] [facility] [address] [id number] [place] [address] Apr, [facility] [place] [facility] [address] [id number] [place] [address] Apr, [facility] [place] [facility] [address] [id number] [place] [address] Apr, [facility] [place] [facility] [address] [id number], [place] [address] Apr, [facility] [place] [facility] [address] [id number], [place] [address] Mar, [facility] [place] [facility] [address] [id number] [place] [address] Mar, [facility] [place] [facility] [address] [id number] [place] [address] Mar, [facility] [place] [facility] [address] [id number] [place] [address] Mar, [facility] [place] [facility] [address] [id number] [place] [address] 08 Mar, 2013 [facility] [place] [facility] [address] [id number] [place] [address] 08 Mar, 2013 [facility] [place] [facility] [address] [id number] [place] [address] Mar, 2013 [facility] [place] [facility] [address] [id number] [place] [address] 08 Mar, 2013 [facility] [place] [facility] [address] [id number] [place] [address] 30 Sep, 2013 [facility] [place] [facility] [address] [id number] [place] [address] 30 Sep, 2013 [facility] [place] [facility] [address] [id number] [place] [address] 24 Feb, 2013 [facility] [place] [facility] [address] [id number] [place] [address] 24 Feb, 2013 [facility] [place] [facility] [address] [id number] [place] [address] 22 Feb, 2013 [facility] [place] [facility] [address] [id number] [place] [address] 22 Feb, 2013 [facility] [place] [facility] [address] [id number] [place] [address] 10 Feb, 2013 [facility] [place] [facility] [address] [id number] [place] [address] 10 Feb, 2013 [facility] [place] [facility] [address] [id number] [place] [address] 03 Sep, 2013 [facility] [place] [facility] [address] [id number] [place] [address] 03 Sep, 2013 [facility] [place] [facility] [address] [id number] [place] [address] 03 Sep, 2013 [facility] [place] [facility] [address] [id number] [place] [address] Feb, [facility] [place] [facility] [address] [id number] [place] [address] Feb, [facility] [place] [facility] [address] [id number] [place] [address] Feb, [facility] [place] [facility] [address] [id number] [place] [address] Jan, [facility] [place] [facility] [address] [id number] [place] [address] Jan, [facility] [place] [facility] [address] [id number] [place] [address] Dec, [facility] [place] [facility] [address] [id number] [place] [address] Dec, [facility] [place] [facility] [address] [id number] [place] [address] Dec, [facility] [place] [facility] [address] [id number] [place] [address] Dec, [facility] [place] [facility] [address] [id number] [place] [id number] Dec, [facility] [place] [facility] [address] [id number] [place] [address] Dec, [facility] [place] [facility] [address] [id number] [place] [address] Dec, [facility] [place] [facility] [address] [id number] [place] [address] Dec, [facility] [place] [facility] [address] [id number] [place] [address] Dec, [facility] [place] [facility] [address] [id number] [place] [address] Dec, [facility] [place] [facility] [address] [id number] [place] [address] Dec, [facility] [place] [facility] [address] [id number] [place] [address] Dec, 2013 [facility] [place] [facility] [address] [id number] [place] [address] Dec, 2013 [facility] [place] [facility] [address] [id number] [place] [address] Dec, 2013 [facility] [place] [facility] [address] [id number] [place] [address] Dec, 2013 [facility] [place] [facility] [address] [id number] [place] [address] Dec, 2013 [facility] [place] [facility] [address] [id number] [place] [address] Dec, [facility] [place] [facility] [address] [id number] [place] [address] Dec, [facility] [place] [facility] [address] [id number] [place] [address] Dec, [facility] [place] [facility] [address] [id number] [place] [address] Nov, [facility] [place] [facility] [address] [id number] [place] [address] Nov, [facility] [place] [facility] [address] [id number] [place] [address] Nov, [facility] [place] [facility] [address] [id number] [place] [address] Nov, [facility] [place] [facility] [address] [id number] [place] [address] Nov, [facility] [place] [facility] [address] [id number] [place] [address] Nov, [facility] [place] [facility] [address] [id number] [place] [address] Nov, [facility] [place] [facility] [address] [id number] [place] [address] Nov, [facility] [place] [facility] [address] [id number] [place] [address] Nov, [facility] [place] [facility] [address] [id number] [place] [address] October, [facility] [place] [facility] [address] [id number] [place] [address] October, [facility] [place] [facility] [address] [id number] [place] [address] October, [facility] [place] [facility] [address] [id number] [place] [address] October, [facility] [place] [facility] [address] [id number] [place] [address] October, [facility] [place] [facility] [address] [id number] [place] [address] October, [facility] [place] [facility] [address] [id number] [place] [address] October, [facility] [place] [facility] [address] [id number] [place] [address] October, [facility] [place] [facility] [address] [id number] [place] [address] Sep, [facility] [place] [facility] [address] [id number] [place] [address] Sep, [facility] [place] [facility] [address] [id number] [place] [address] Sep, [facility] [place] [facility] [address] [id number] [place] [address] Sep, [facility] [place] [facility] [address] [id number] [place] [address] Sep, [facility] [place] [facility] [address] [id number] [place] [address] Sep, [facility] [place] [facility] [address] [id number] [place] [address] Sep, [facility] [place] [facility] [address] [id number] [place] [address] Aug, [facility] [place] [facility] [address] [id number] [place] [address] Aug, [facility] [place] [facility] [address] [id number] [place] [address] Aug, [facility] [place] [facility] [address] [id number] [place] [address] Aug, [facility] [place] [facility] [address] [id number] [place] [address] Aug, [facility] [place] [facility] [address] [id number] [place] [address] Aug, [facility] [place] [facility] [address] [id number] [place] [address] Jul, [facility] [place] [facility] [address] [id number] [place] [address] Jul, [facility] [place] [facility] [address] [id number] [place] [address] Jul, [facility] [place] [facility] [address] [id number] [place] [address] Jul, [facility] [place] [facility] [address] [id number] [place] [address] Jul, [facility] [place] [facility] [address] [id number] [place] [address] Jul, [facility] [place] [facility] [address] [id number] [place] [address] Jun, [facility] [place] [facility] [address] [id number] [place] [address] Jun, [facility] [place] [facility] [address] [id number] [place] [address] Jun, [facility] [place] [facility] [address] [id number] [place] [address] Jun, [facility] [address] [id number] [place] [address] Jun, [facility] [address] [id number] [place] [address] Jun, [facility] [address] [id number] [place] [address] Jun, [facility] [address] [id number] [place] [address] Jun, [facility] [address] [id number] [place] [address] Jun, [facility] [address] [id number] [place] [address] Jun, [facility] [address] [id number] [place] [address] Jun, [facility] [address] [id number] [place] [address] Jun, [facility] [address] [id number] [place] [address] Jun, [facility] [address] [id number] [place] [address] May, [facility] [address] [id number] [place] [address] May, [facility] [address] [id number] [place] [address] May, [facility] [place] [facility] [address] [id number] [place] [address] May, [facility] [address] [id number] [place] [address] May, [facility] [address] [id number] [place] [address] May, [facility] [address] [id number] [place] [address] 14 May, 2013 [facility] [place] [facility] [address] [id number] [place] [address] 12 May, 2013 [facility] [place] [facility] [address] [id number] [place] [address] 12 May, 2013 [facility] [place] [facility] [address] [id number] [place] [address] May, [facility] [place] [facility] [address] [id number] [place] [address] 11 May, 2013 [facility] [place] [facility] [address] [id number] [place] [address] 10 May, 2013 [facility] [place] [facility] [address] [id number] [place] [address] May, [facility] [place] [facility] [address] [id number] [place] [address] May, [facility] [place] [facility] [address] [id number] [place] [address] May, [facility] [place] [facility] [address] [id number] [place] [address] 08 May, 2013 [facility] [place] [facility] [address] [id number] [place] [address] 07 May, 2013 [facility] [place] [facility] [address] [id number], [place] [address] 06 May, 2013 [facility] [place] [facility] [address] [id number] [place] [address] May, [facility] [place] [facility] [address] [id number] [place] [address] May, [facility] [place] [facility] [address] [id number] [place] [address] May, [facility] [place] [facility] [address] [id number] [place] [address] Apr, [facility] [address] [id number] [place] [address] Apr, [facility] [place] [facility] [address] [id number] [place] [address] Apr, [facility] [place] [facility] [address] [id number] [place] [address] Apr, [facility] [place] [facility] [address] [id number] [place] [address] Mar, [facility] [place] [facility] [address] [id number] [place] [address] 23 Feb, 2013 [facility] [place] [facility] [address] [id number] [place] [address] 16 Feb, 2013 [facility] [address] [id number] [place] [address] 13 Feb, 2013 [facility] [place] [facility] [address] [id number] [place] [address] 10 Feb, 2013 [facility] [place] [facility] [address] [id number] [place] [address] 09 Feb, 2013 [facility] [place] [facility] [address] [id number] [place] [address] 09 Feb, 2013 [facility] [place] [facility] [address] [id number] [place] [address] Jan, [facility] [place] [facility] [address] [id number] [place] [address] Jan, [facility] [place] [facility] [address] [id number] [place] [address] Jan, [facility] [place] [facility] [address] [id number] [place] [address] Dec, [facility] [place] [facility] [address] [id number] [place] [address] Dec, [facility] [place] [facility] [address] [id number] [place] [address] 17 Dec, 2012 [facility] [place] [facility] [address] [id number] [place] [address] 15 Dec, 2012 [facility] [place] [facility] [address] [id number] [place] [address] Dec, [facility] [place] [facility] [address] [id number] [place] [address] Nov, [facility] [place] [facility] [address] [id number] [place] [address] Nov, [facility] [place] [facility] [address] [id number] [place] [address] Nov, [facility] [place] [facility] [address] [id number] [place] [address] Nov, [facility] [place] [facility] [address] [id number] [place] [address] Nov, [facility] [place] [facility] [address] [id number] [place] [address] Nov, [facility] [place] [facility] [address] [id number] [place] [address] Nov, [facility] [place] [facility] [address] [id number] [place] [address] Nov, [facility] [place] [facility] [address] [id number] [place] [address] Nov, [facility] [place] [facility] [address] [id number] [place] [address] Nov, [facility] [place] [facility] [address] [id number] [place] [address] October, [facility] [place] [facility] [address] [id number] [place] [address] October, [facility] [place] [facility] [address] [id number] [place] [address] Sep, [facility] [address] [id number] [place] [address] Sep, [facility] [place] [facility] [address] [id number] [place] [address] Sep, [facility] [address] [facility] [id number] [place] [address] Sep, [facility] [place] [facility] [address] [id number] [place] [address] Sep, [facility] [address] [id number] [place] [address] Aug, [facility] [place] [facility] [address] [id number] [place] [address] Aug, [facility] [address] [id number] [place] [address] Jul, [facility] [place] [facility] [address] [id number] [place] [address] Jul, [facility] [address] [id number] [place] [address] Jun, [facility] [address] [id number] [place] [address] Jun, [facility] [address] [id number], [place] [address] May, [facility] [place] [facility] [address] [id number], [place] [address] May, [facility] [place] [facility] [address] [id number] [place] [address] May, [facility] [place] [facility] [address] [facility] [id number] [place] [address] May, [facility] [place] [facility] [address] [facility] [id number] [place] [address] Apr, [facility] [place] [facility] [address] [id number] [place] [address] 27 Apr, 2012 [facility] [place] [facility] [address] [id number] [place] [address] 23 Apr, 2012 [facility] [place] [facility] [address] [id number] [place] [address] Apr, [facility] [place] [facility] [address] [id number] [place] [address] 20 Apr, 2012 [facility] [place] [facility] [address] [id number] [place] [address] 14 Apr, 2012 [facility] [place] [facility] [address] [id number] [place] [id number], [place] [address] 14 Apr, 2012 [facility] [place] [facility] [address] [id number] [place] [address] Apr, [facility] [place] [facility] [address] [facility] [id number] [place] [address] Apr, [facility] [place] [facility] [address] [id number] [place] [address] Mar, [facility] [place] [facility] [address] [facility] [id number] [place] [address] Mar, [facility] [place] [facility] [address] [facility] [id number] [place] [address] Feb, [facility] [place] [facility] [address] [id number] [place] [address] Jan, [facility] [place] [facility] [address] [id number] [place] [address] Jan, [facility] [place] [facility] [address] [id number] [place] [address] Dec, [facility] [place] [facility] [address] [id number] [place] [address] Nov, [facility] [place] [facility] [address] [facility] [id number] [place] [address] Nov, [facility] [place] [facility] [address] [id number] [place] [address] October, [facility] [place] [facility] [address] [id number] [place] [address] October, [facility] [place] [facility] [address] [id number] [place] [address] Sep, [facility] [place] [facility] [address] [id number] [place] [address] Sep, [facility] [place] [facility] [address] [id number] [place] [address] May, [facility] [place] [facility] [address] [id number] [place] [address] Apr, [facility] [place] [facility] [address] [id number] [place] [address] Apr, [facility] [place] [facility] [address] [id number], [place] [address] Apr, [facility] [place] [facility] [address] [id number] [place] [address] Apr, [facility] [place] [facility] [address] [id number], [place] [address] Apr, [facility] [place] [facility] [address] [id number], [place] [address] Apr, [facility] [place] [facility] [address] [id number], [place] [address] Apr, [facility] [place] [facility] [address] [id number], [place] [address] Apr, [facility] [place] [facility] [address] [id number], [place] [address] Mar, [facility] [place] [facility] [address] [id number], [place] [address] Mar, [facility] [place] [facility] [address] [id number], [place] [address] Mar, [facility] [address] [facility] [id number] [place] [address] Mar, [facility] [address] [facility] [id number], [place] [address] Mar, [facility] [address] [facility] [id number] [place] [address] Mar, IMMUNIZATIONS No Known Immunizations SOCIAL HISTORY Never Assessed REASON FOR VISIT [facility] [place] PLAN OF CARE VITAL SIGNS MEDICATIONS No [...] Hospitalization History Mental floor at [facility]
--- OUTSIDE RECORDS SUMMARY | 2018-10-27 16:04 | XMS REPORT ---
Author Author Migration, Doctor Organization [facility] Address Unknown Phone Unavailable Care Team Providers Care Sand Hauler Name Role Phone Migration, Doctor Unavailable Unavailable PROBLEMS Type Condition ICD9-CM Code YLN26-VZ Code Onset Dates Condition Status SNOMED Code Problem Presbyopia H52.4 Active 61134344 Problem Nondependent 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 Active 847201588 Problem Unspecified open-angle glaucoma, stage unspecified H40.10X0 Feb, Active 25395092 Problem Other chronic pain G89.29 Active 696567395 Problem Unspecified epilepsy without mention of intractable epilepsy G40.909 Active 58641197 Problem Hyperlipidemia, unspecified E78.5 Active 71299645 Problem Hypertension I10 Active 12934609 Problem Goiter E04.9 Active 8442422 Problem Multinodular goiter E04.2 Active 554018962 Problem Right-sided low back pain without sciatica M54.5 Active 729500201 Problem Depression F32.9 Active 86657303 Problem Insomnia G47.00 Active 123557929 Problem Arthralgia M25.50 Active 42981870 Problem Thyroid nodule E04.1 Active 707963281 Problem Anxiety disorder, unspecified F41.9 Active 386722986 Problem Chronic tension-type headache, intractable G44.221 Active 891914799 Problem Neuropathy G62.9 Active 462510649 Problem Acquired hypothyroidism E03.9 Active 706702237 Problem Cough R05 Active 03552871 Problem Carpal tunnel syndrome of left wrist G56.02 Active [id number] Problem Abnormal laboratory test R89.9 Active 404363825 Problem Esophageal reflux K21.9 Active 746892486 Problem COPD with exacerbation J44.1 Active 684217793 Problem Rheumatoid arthritis M06.9 Active 75765022 Problem Depressive disorder F32.9 Active 36337776 Problem Chronic obstructive pulmonary disease, unspecified COPD type J44.9 Active 95522425 Problem BMI 40.0-44.9, adult Z68.41 Active 350019725 Problem Reactive airway disease without complication, unspecified asthma severity, unspecified whether persistent J45.909 Active 472202464046 Problem Urge incontinence of urine N39.41 Active 90766081 ALLERGIES No Information ENCOUNTERS Encounter Location Date Diagnosis [facility] [id number] [place] [address] Jul, COPD with exacerbation J44.1 ; Viral upper respiratory tract infection J06.9 and Morbid obesity E66.[address] [facility] [id number] [place] [address] Jun, Viral upper respiratory tract infection J06.9 [facility] [id number] [place] [address] Apr, Abnormal laboratory test R89.9 [place] [id number] [place] [address] Apr, Abnormal laboratory test R89.9 [place] [address] [address] Apr, Abnormal laboratory test R89.9 [place] [id number] [place] [address] Apr, [facility] [id number] [place] [address] Apr, [place] [id number] [place] [address] Apr, Nonintractable episodic headache, unspecified headache type R51 ; Urge incontinence of urine N39.41 ; BMI 40.0-44.9, adult Z68.41 ; Myalgia M79.10 and Acute cystitis without hematuria N30.00 [place] [address] [address] Mar, Nasal congestion R09.81 ; Low back pain M54.5 ; Reactive airway disease without complication, unspecified asthma severity, unspecified whether persistent J45.909 ; Other chronic pain G89.29 ; Acute cystitis with hematuria N30.01 and BMI 40.0-44.9, adult Z68.41 [facility] [id number] [place] [address] Mar, Acute cystitis with hematuria N30.01 [facility] [id number] [place] [address] Mar, BMI 40.0-44.9, adult Z68.41 ; Acute cystitis with hematuria N30.01 ; Acute bilateral low back pain without sciatica M54.5 and Nausea R11.0 [place] [address] [address] Mar, Hypertension I10 ; Acquired hypothyroidism E03.9 ; Esophageal reflux K21.9 ; Chronic obstructive pulmonary disease, unspecified COPD type J44.9 and BMI 40.0-44.9, adult Z68.[address] [address] Mar, Hypertension I10 [place] [address] [address] Nov, Hyperlipidemia, unspecified E78.[address] [address] October, Chest pain, unspecified type R07.9 and Acquired hypothyroidism E03.9 [id number] [place] [address] October, Chest pain, unspecified type R07.9 ; Family history of coronary artery disease Z82.49 ; Carpal tunnel syndrome of left wrist G56.02 ; Hypertension I10 ; Esophageal reflux K21.9 ; Arthralgia M25.50 ; Acquired hypothyroidism E03.9 ; Cough R05 ; Nausea R11.0 ; Weight gain R63.5 and BMI 45.0-49.9, adult Z68.42 [id number] [place] [address] Jun, Acquired hypothyroidism E03.9 and Cough R05 [id number] [place] [address] May, [place] [address] [address] Feb, Tarsal tunnel syndrome of both lower extremities G57.53 and Neuropathy G62.9 [place] [address] [address] Dec, Pleuritis R09.1 [place] [address] [address] Nov, [place] [address] [address] October, Arthralgia, unspecified joint M25.50 and Allergy, initial encounter T78.40XA [place] [address] [address] October, [place] [address] [address] October, Acute recurrent maxillary sinusitis J01.01 and Arthralgia M25.50 [place] [address] [address] Sep, Pharyngitis due to other organism J02.8 [place] [id number] [place] [address] Aug, Acute nasopharyngitis J00 [place] [address] [address] Aug, Multinodular goiter E04.2 [place] [address] [address] Aug, Thyroid nodule E04.1 [place] [id number] [place] [address] Jul, Tarsal tunnel syndrome of both lower extremities G57.53 [place] [address] [place] [address] Jun, Pneumonia due to infectious organism, unspecified laterality, unspecified part of lung J18.9 [place] [address] [address] Jun, Bronchospasm with bronchitis, acute J20.9 [place] [address] [address] May, Acute non-recurrent frontal sinusitis J01.10 [place] [address] [address] May, Flat foot [pes planus] (acquired), left foot M21.42 ; Flat foot [pes planus] (acquired), right foot M21.41 and Neuropathy G62.9 [place] [address] [address] Apr, Chronic tension-type headache, intractable G44.221 ; Right lower quadrant abdominal pain R10.31 ; Cervicalgia M54.2 ; Acute gastritis without hemorrhage, unspecified gastritis type K29.00 and Hypertension I10 [place] [address] [address] Mar, Depression F32.9 and Anxiety disorder, unspecified F41.9 [place] [id number] [place] [address] Feb, Depressive disorder F32.9 and Anxiety disorder, unspecified F41.9 [place] [id number] [place] [address] Jan, Dysuria R30.0 ; Lower abdominal pain R10.30 ; Acute bilateral low back pain without sciatica M54.5 ; Nausea and vomiting, unspecified intactability, vomiting of unspecified type R11.2 ; Pain in right foot M79.671 and Pain of left foot M79.672 [place] [id number] [place] [address] Dec, Urinary tract infection, site not specified N39.0 [facility] [address] [address] Dec, [facility] [id number] [place] [address] Nov, [facility] [id number] [place] [address] Nov, Dysuria R30.0 [facility] [id number] [place] [address] Nov, Dysuria R30.0 and Acute cystitis with hematuria N30.01 [facility] [id number] [place] [address] October, Nausea R11.0 [facility] [id number] [place] [address] October, Thyroid nodule E04.1 ; Carpal tunnel syndrome, left upper limb G56.02 ; Carpal tunnel syndrome, right upper limb G56.01 and Constipation, unspecified constipation type K59.00 [facility] [id number] [place] [address] October, [facility] [address] [address] October, Thyroid nodule E04.1 [facility] [id number] [place] [address] October, Cold thyroid nodule E04.1 [facility] [address] [address] October, [facility] [id number] [place] [address] Sep, Thyroid nodule E04.1 [facility] [address] [address] Sep, Thyroid nodule E04.1 [facility] [id number] [place] [address] Sep, Thyroid nodule E04.1 ; Hypertension I10 ; Esophageal reflux K21.9 and Hyperlipidemia, unspecified E78.5 [address] [address] [address] 14 Aug, 2015 Other chronic pain G89.29 ; Sinusitis J32.9 and Hypertension I10 [place] [address] [address] Jul, [place] [address] [address] 15 Jul, 2015 [place] [address] [address] 10 Jul, 2015 Insomnia G47.00 and Arthralgia M25.50 [address] [address] [address] 10 Jul, 2015 Depressive disorder F32.9 and Anxiety disorder, unspecified F41.9 [place] [address] [address] May, Right-sided low back pain without sciatica M54.5 and Depression F32.9 [place] [id number] [place] [address] Apr, Hematuria R31.9 [address] [address] [address] Mar, Other chronic pain G89.29 [place] [address] [address] Mar, Other chronic pain G89.29 [address] [address] [address] Feb, [place] [address] [address] 22 Feb, 2015 Other chronic pain 338.29 ; Dysuria 788.1 ; UTI (urinary tract infection) 599.0 ; Insomnia 780.52 ; Hot flashes 627.2 and Hypertension 401.9 [facility] [address] [address] Feb, Dysuria 788.1 [facility] [address] [address] Feb, [facility] [id number] [place] [address] Jan, [facility] [id number] [place] [address] Jan, [facility] [id number] [place] [address] Jan, Fibromyalgia 729.1 ; Hypertension 401.9 ; Dysthymia 300.4 and Hot flashes 627.2 [facility] [id number] [address] Dec, [facility] [address] [address] Dec, [facility] [id number] [place] [address] Dec, [facility] [address] [address] Nov, Other chronic pain 338.29 [facility] [address] [address] October, [facility] [address] [address] October, [facility] [address] [address] Sep, [facility] [address] [address] Sep, [facility] [id number] [address] Aug, [facility] [place] [facility] [address] [id number] [place] [address] Aug, [facility] [place] [facility] [address] [id number] [place] [address] Aug, [facility] [place] [facility] [address] [id number] [place] [address] Aug, [facility] [place] [facility] [address] [id number] [place] [address] Aug, [facility] [place] [facility] [address] [id number] [place] [address] Aug, [facility] [place] [facility] [address] [id number] [place] [address] Aug, [facility] [place] [facility] [address] [id number] [place] [address] Aug, [facility] [place] [facility] [address] [id number] [place] [address] Aug, [facility] [place] [facility] [address] [id number] [place] [address] Aug, [facility] [place] [facility] [address] [id number] [place] [address] Aug, [facility] [place] [facility] [address] [id number] [place] [address] Aug, [facility] [place] [facility] [address] [id number] [place] [address] Aug, [facility] [place] [facility] [address] [id number] [place] [address] Aug, [facility] [place] [facility] [address] [id number] [place] [address] Jul, [facility] [place] [facility] [address] [id number] [place] [address] Jul, [facility] [place] [facility] [address] [id number] [place] [address] Jul, [facility] [place] [facility] [address] [id number] [place] [address] Jul, [facility] [place] [facility] [address] [id number] [place] [address] Jul, [facility] [place] [facility] [address] [id number] [place] [address] Jul, [facility] [place] [facility] [address] [id number] [place] [address] Jun, [facility] [place] [facility] [address] [id number] [place] [address] Jun, [facility] [place] [facility] [address] [id number] [place] [address] Jun, [facility] [place] [facility] [address] [id number] [place] [address] Jun, [facility] [place] [facility] [address] [id number] [place] [address] May, [facility] [place] [facility] [address] [id number] [place] [address] May, [facility] [place] [facility] [address] [id number] [place] [address] May, [facility] [place] [facility] [address] [id number] [place] [address] May, [facility] [place] [facility] [address] [id number] [place] [address] May, [facility] [place] [facility] [address] [id number] [place] [address] May, [facility] [place] [facility] [address] [id number] [place] [address] May, [facility] [place] [facility] [address] [id number] [place] [address] May, [facility] [place] [facility] [address] [id number] [place] [address] May, [facility] [place] [facility] [address] [id number] [place] [address] May, [facility] [place] [facility] [address] [id number] [place] [address] Apr, [facility] [place] [facility] [address] [id number] [place] [address] Apr, [facility] [place] [facility] [address] [id number] [place] [address] Apr, [facility] [place] [facility] [address] [id number] [place] [address] Apr, [facility] [place] [facility] [address] [id number] [place] [address] Apr, [facility] [place] [facility] [address] [id number] [place] [address] Apr, [facility] [place] [facility] [address] [id number] [place] [address] Apr, [facility] [place] [facility] [address] [id number] [place] [address] Apr, [facility] [place] [facility] [address] [id number] [place] [address] Apr, [facility] [place] [facility] [address] [id number] [place] [address] Mar, [facility] [place] [facility] [address] [id number] [place] [address] Mar, [facility] [place] [facility] [address] [id number] [place] [address] Mar, [facility] [place] [facility] [address] [id number] [place] [address] Mar, [facility] [place] [facility] [address] [id number] [place] [address] 08 Mar, 2013 [facility] [place] [facility] [address] [id number] [place] [address] 08 Mar, 2013 [facility] [place] [facility] [address] [id number] [place] [address] Mar, 2013 [facility] [place] [facility] [address] [id number] [place] [address] 08 Mar, 2013 [facility] [place] [facility] [address] [id number] [place] [address] 30 Sep, 2013 [facility] [place] [facility] [address] [id number] [place] [address] 30 Sep, 2013 [facility] [place] [facility] [address] [id number] [place] [address] 24 Feb, 2013 [facility] [place] [facility] [address] [id number] [place] [address] 24 Feb, 2013 [facility] [place] [facility] [address] [id number] [place] [address] 22 Feb, 2013 [facility] [place] [facility] [address] [id number] [place] [address] 22 Feb, 2013 [facility] [place] [facility] [address] [id number] [place] [address] 10 Feb, 2013 [facility] [place] [facility] [address] [id number] [place] [address] 10 Feb, 2013 [facility] [place] [facility] [address] [id number] [place] [address] 03 Sep, 2013 [facility] [place] [facility] [address] [id number] [place] [address] 03 Sep, 2013 [facility] [place] [facility] [address] [id number] [place] [address] 03 Sep, 2013 [facility] [place] [facility] [address] [id number] [place] [address] Feb, [facility] [place] [facility] [address] [id number] [place] [address] Feb, [facility] [place] [facility] [address] [id number] [place] [address] Feb, [facility] [place] [facility] [address] [id number] [place] [address] Jan, [facility] [place] [facility] [address] [id number] [place] [address] Jan, [facility] [place] [facility] [address] [id number] [place] [address] Dec, [facility] [place] [facility] [address] [id number] [place] [address] Dec, [facility] [place] [facility] [address] [id number] [place] [address] Dec, [facility] [place] [facility] [address] [id number] [place] [address] Dec, [facility] [place] [facility] [address] [id number] [place] [address] Dec, [facility] [place] [facility] [address] [id number] [place] [address] Dec, [facility] [place] [facility] [address] [id number] [place] [address] Dec, [facility] [place] [facility] [address] [id number] [place] [address] Dec, [facility] [place] [facility] [address] [id number] [place] [address] Dec, [facility] [place] [facility] [address] [id number] [place] [address] Dec, [facility] [place] [facility] [address] [id number] [place] [address] Dec, [facility] [place] [facility] [address] [id number] [place] [address] Dec, 2013 [facility] [place] [facility] [address] [id number] [place] [address] Dec, 2013 [facility] [place] [facility] [address] [id number] [place] [address] Dec, 2013 [facility] [place] [facility] [address] [id number] [place] [address] Dec, 2013 [facility] [place] [facility] [address] [id number] [place] [address] Dec, 2013 [facility] [place] [facility] [address] [id number] [place] [address] Dec, [facility] [place] [facility] [address] [id number] [place] [address] Dec, [facility] [place] [facility] [address] [id number] [place] [address] Dec, [facility] [place] [facility] [address] [id number] [place] [address] Nov, [facility] [place] [facility] [address] [id number] [place] [address] Nov, [facility] [place] [facility] [address] [id number] [place] [address] Nov, [facility] [place] [facility] [address] [id number] [place] [address] Nov, [facility] [place] [facility] [address] [id number] [place] [address] Nov, [facility] [place] [facility] [address] [id number] [place] [address] Nov, [facility] [place] [facility] [address] [id number] [place] [address] Nov, [facility] [place] [facility] [address] [id number] [place] [address] Nov, [facility] [place] [facility] [address] [id number] [place] [address] Nov, [facility] [place] [facility] [address] [id number] [place] [address] October, [facility] [place] [facility] [address] [id number] [place] [address] October, [facility] [place] [facility] [address] [id number] [place] [address] October, [facility] [place] [facility] [address] [id number] [place] [address] October, [facility] [place] [facility] [address] [id number] [place] [address] October, [facility] [place] [facility] [address] [id number] [place] [address] October, [facility] [place] [facility] [address] [id number] [place] [address] October, [facility] [place] [facility] [address] [id number] [place] [address] October, [facility] [place] [facility] [address] [id number] [place] [address] Sep, [facility] [place] [facility] [address] [id number] [place] [address] Sep, [facility] [place] [facility] [address] [id number] [place] [address] Sep, [facility] [place] [facility] [address] [id number] [place] [address] Sep, [facility] [place] [facility] [address] [id number] [place] [address] Sep, [facility] [place] [facility] [address] [id number] [place] [address] Sep, [facility] [place] [facility] [address] [id number] [place] [address] Sep, [facility] [place] [facility] [address] [id number] [place] [address] Aug, [facility] [place] [facility] [address] [id number] [place] [address] Aug, [facility] [place] [facility] [address] [id number] [place] [address] Aug, [facility] [place] [facility] [address] [id number] [place] [address] Aug, [facility] [place] [facility] [address] [id number] [place] [address] Aug, [facility] [place] [facility] [address] [id number] [place] [address] Aug, [facility] [place] [facility] [address] [id number] [place] [address] Jul, [facility] [place] [facility] [address] [id number] [place] [address] Jul, [facility] [place] [facility] [address] [id number] [place] [address] Jul, [facility] [place] [facility] [address] [id number] [place] [address] Jul, [facility] [place] [facility] [address] [id number] [place] [address] Jul, [facility] [place] [facility] [address] [id number] [place] [address] Jul, [facility] [place] [facility] [address] [id number] [place] [address] Jun, [facility] [place] [facility] [address] [id number] [place] [address] Jun, [facility] [place] [facility] [address] [id number] [place] [address] Jun, [facility] [place] [facility] [address] [id number] [place] [address] Jun, [facility] [address] [id number] [place] [address] Jun, [facility] [address] [id number] [place] [address] Jun, [facility] [address] [id number] [place] [address] Jun, [facility] [address] [id number] [place] [address] Jun, [facility] [address] [id number] [place] [address] Jun, [facility] [address] [id number] [place] [address] Jun, [facility] [address] [id number] [place] [address] Jun, [facility] [address] [id number] [place] [address] Jun, [facility] [address] [id number] [place] [address] Jun, [facility] [address] [id number] [place] [address] May, [facility] [address] [id number] [place] [address] May, [facility] [address] [id number] [place] [address] May, [facility] [place] [facility] [address] [id number] [place] [address] May, [facility] [address] [id number] [place] [address] May, [facility] [address] [id number] [place] [address] May, [facility] [address] [id number] [place] [address] 14 May, 2013 [facility] [place] [facility] [address] [id number] [place] [address] 12 May, 2013 [facility] [place] [facility] [address] [id number] [place] [address] 12 May, 2013 [facility] [place] [facility] [address] [id number] [place] [address] May, [facility] [place] [facility] [address] [id number] [place] [address] 11 May, 2013 [facility] [place] [facility] [address] [id number] [place] [address] 10 May, 2013 [facility] [place] [facility] [address] [id number] [place] [address] May, [facility] [place] [facility] [address] [id number] [place] [address] May, [facility] [place] [facility] [address] [id number] [place] [address] May, [facility] [place] [facility] [address] [id number] [place] [address] 08 May, 2013 [facility] [place] [facility] [address] [id number] [place] [address] 07 May, 2013 [facility] [place] [facility] [address] [id number] [place] [address] 06 May, 2013 [facility] [place] [facility] [address] [id number] [place] [address] May, [facility] [place] [facility] [address] [id number] [place] [address] May, [facility] [place] [facility] [address] [id number] [place] [address] May, [facility] [place] [facility] [address] [id number] [place] [address] Apr, [facility] [address] [id number] [place] [address] Apr, [facility] [place] [facility] [address] [id number] [place] [address] Apr, [facility] [place] [facility] [address] [id number] [place] [address] Apr, [facility] [place] [facility] [address] [id number] [place] [address] Mar, [facility] [place] [facility] [address] [id number] [place] [address] 23 Feb, 2013 [facility] [place] [facility] [address] [id number] [place] [address] 16 Feb, 2013 [facility] [address] [id number] [place] [address] 13 Feb, 2013 [facility] [place] [facility] [address] [id number] [place] [address] 10 Feb, 2013 [facility] [place] [facility] [address] [id number] [place] [address] 09 Feb, 2013 [facility] [place] [facility] [address] [id number] [place] [address] 09 Feb, 2013 [facility] [place] [facility] [address] [id number] [place] [address] Jan, [facility] [place] [facility] [address] [id number] [place] [address] Jan, [facility] [place] [facility] [address] [id number] [place] [address] Jan, [facility] [place] [facility] [address] [id number] [place] [address] Dec, [facility] [place] [facility] [address] [id number] [place] [address] Dec, [facility] [place] [facility] [address] [id number] [place] [address] 17 Dec, 2012 [facility] [place] [facility] [address] [id number] [place] [address] 15 Dec, 2012 [facility] [place] [facility] [address] [id number] [place] [address] Dec, [facility] [place] [facility] [address] [id number] [place] [address] Nov, [facility] [place] [facility] [address] [id number] [place] [address] Nov, [facility] [place] [facility] [address] [id number] [place] [address] Nov, [facility] [place] [facility] [address] [id number] [place] [address] Nov, [facility] [place] [facility] [address] [id number] [place] [address] Nov, [facility] [place] [facility] [address] [id number] [place] [address] Nov, [facility] [place] [facility] [address] [id number] [place] [address] Nov, [facility] [place] [facility] [address] [id number] [place] [address] Nov, [facility] [place] [facility] [address] [id number] [place] [address] Nov, [facility] [place] [facility] [address] [id number] [place] [address] Nov, [facility] [place] [facility] [address] [id number] [place] [address] October, [facility] [place] [facility] [address] [id number] [place] [address] October, [facility] [place] [facility] [address] [id number] [place] [address] Sep, [facility] [address] [id number] [place] [address] Sep, [facility] [place] [facility] [address] [id number] [place] [address] Sep, [facility] [address] [id number] [place] [address] Sep, [facility] [place] [facility] [address] [id number] [place] [address] Sep, [facility] [address] [id number] [place] [address] Aug, [facility] [place] [facility] [address] [id number] [place] [address] Aug, [facility] [address] [id number] [place] [address] Jul, [facility] [place] [facility] [address] [id number] [place] [address] Jul, [facility] [address] [id number] [place] [address] Jun, [facility] [address] [id number] [place] [address] Jun, [facility] [address] [id number] [place] [address] May, [facility] [place] [facility] [address] [id number] [place] [address] May, [facility] [place] [facility] [address] [id number] [place] [address] May, [facility] [place] [facility] [address] [id number] [place] [address] May, [facility] [place] [facility] [address] [id number] [place] [address] Apr, [facility] [place] [facility] [address] [id number] [place] [address] 27 Apr, 2012 [facility] [place] [facility] [address] [id number] [place] [address] 23 Apr, 2012 [facility] [place] [facility] [address] [id number] [place] [address] Apr, [facility] [place] [facility] [address] [id number] [place] [address] 20 Apr, 2012 [facility] [place] [facility] [address] [id number] [place] [address] 14 Apr, 2012 [facility] [place] [facility] [id number] [place] [address], [place] [address] 14 Apr, 2012 [facility] [place] [facility] [address] [id number] [place] [address] Apr, [facility] [place] [facility] [address] [id number] [place] [address] Apr, [facility] [place] [facility] [address] [id number] [place] [address] Mar, [facility] [place] [facility] [address] [id number] [place] [address] Mar, [facility] [place] [facility] [address] [id number] [place] [address] Feb, [facility] [place] [facility] [address] [id number] [place] [address] Jan, [facility] [place] [facility] [address] [id number] [place] [address] Jan, [facility] [place] [facility] [address] [id number] [place] [address] Dec, [facility] [place] [facility] [address] [id number] [place] [address] Nov, [facility] [place] [facility] [address] [id number] [place] [address] Nov, [facility] [place] [facility] [address] [id number] [place] [address] October, [facility] [place] [facility] [address] [id number] [place] [address] October, [facility] [place] [facility] [address] [id number] [place] [address] Sep, [facility] [place] [facility] [address] [id number] [place] [address] Sep, [facility] [place] [facility] [address] [id number] [place] [address] May, [facility] [place] [facility] [address] [id number] [place] [address] Apr, [facility] [place] [facility] [address] [id number] [place] [address] Apr, [facility] [place] [facility] [address] [id number] [place] [address] Apr, [facility] [place] [facility] [address] [id number] [place] [address] Apr, [facility] [place] [facility] [address] [id number] [place] [address] Apr, [facility] [place] [facility] [address] [id number] [place] [address] Apr, [facility] [place] [facility] [address] [id number] [place] [address] Apr, [facility] [place] [facility] [address] [id number] [place] [address] Apr, [facility] [place] [facility] [address] [id number] [place] [address] Mar, [facility] [place] [facility] [address] [id number] [place] [address] Mar, [facility] [place] [facility] [address] [id number] [place] [address] Mar, [facility] [address] [id number] [place] [address] Mar, [facility] [address] [id number] [place] [address] Mar, [facility] [address] [id number] [place] [address] Mar, IMMUNIZATIONS No Known Immunizations SOCIAL HISTORY Never Assessed REASON FOR VISIT [facility] [place] PLAN OF CARE VITAL SIGNS MEDICATIONS No [...] Stomach surgeryx3 Hospitalization History Mental floor at [facility]
--- OUTSIDE RECORDS SUMMARY | 2018-10-27 16:05 | XMS REPORT ---
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 Name Role Phone Migration, Doctor Unavailable Unavailable PROBLEMS Type Condition ICD9-CM Code MDI85-VS Code Onset Dates Condition Status SNOMED Code Problem Presbyopia H52.4 Active 27105112 Problem Nondependent 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 Active 476221065 Problem Unspecified open-angle glaucoma, stage unspecified H40.10X0 Feb, Active 21701735 Problem Other chronic pain G89.29 Active 306892665 Problem Unspecified epilepsy without mention of intractable epilepsy G40.909 Active 57751440 Problem Hyperlipidemia, unspecified E78.5 Active 93197676 Problem Hypertension I10 Active 56363103 Problem Goiter E04.9 Active 5186135 Problem Multinodular goiter E04.2 Active 958326646 Problem Right-sided low back pain without sciatica M54.5 Active 682814749 Problem Depression F32.9 Active 84194807 Problem Insomnia G47.00 Active 767908402 Problem Arthralgia M25.50 Active 79691576 Problem Thyroid nodule E04.1 Active 867069532 Problem Anxiety disorder, unspecified F41.9 Active 088172013 Problem Chronic tension-type headache, intractable G44.221 Active 741813669 Problem Neuropathy G62.9 Active 562404435 Problem Acquired hypothyroidism E03.9 Active 861005977 Problem Cough R05 Active 84415104 Problem Carpal tunnel syndrome of left wrist G56.02 Active [id number] Problem Abnormal laboratory test R89.9 Active 333183518 Problem Esophageal reflux K21.9 Active 563911056 Problem COPD with exacerbation J44.1 Active 092207313 Problem Rheumatoid arthritis M06.9 Active 76285606 Problem Depressive disorder F32.9 Active 30546247 Problem Chronic obstructive pulmonary disease, unspecified COPD type J44.9 Active 95771163 Problem BMI 40.0-44.9, adult Z68.41 Active 181162374 Problem Reactive airway disease without complication, unspecified asthma severity, unspecified whether persistent J45.909 Active 263463713675 Problem Urge incontinence of urine N39.41 Active 44641541 ALLERGIES No Information ENCOUNTERS Encounter Location Date Diagnosis [facility] [id number] [place] [address] Jul, COPD with exacerbation J44.1 ; Viral upper respiratory tract infection J06.9 and Morbid obesity E66.01 [facility] [id number] [place] [address] Jun, Viral upper respiratory tract infection J06.9 [place] [id number] [place] [address] Apr, Abnormal laboratory test R89.9 [place] [id number] [place] [address] Apr, Abnormal laboratory test R89.9 [place] [address] [address] Apr, Abnormal laboratory test R89.9 [place] [id number] [place] [address] Apr, [place] [id number] [place] [address] Apr, [place] [id number] [place] [address] Apr, Nonintractable episodic headache, unspecified headache type R51 ; Urge incontinence of urine N39.41 ; BMI 40.0-44.9, adult Z68.41 ; Myalgia M79.10 and Acute cystitis without hematuria N30.00 [place] [address] [address] Mar, Nasal congestion R09.81 ; Low back pain M54.5 ; Reactive airway disease without complication, unspecified asthma severity, unspecified whether persistent J45.909 ; Other chronic pain G89.29 ; Acute cystitis with hematuria N30.01 and BMI 40.0-44.9, adult Z68.41 [facility] [id number] [place] [address] Mar, Acute cystitis with hematuria N30.01 [facility] [id number] [place] [address] Mar, BMI 40.0-44.9, adult Z68.41 ; Acute cystitis with hematuria N30.01 ; Acute bilateral low back pain without sciatica M54.5 and Nausea R11.0 [place] [address] [address] Mar, Hypertension I10 ; Acquired hypothyroidism E03.9 ; Esophageal reflux K21.9 ; Chronic obstructive pulmonary disease, unspecified COPD type J44.9 and BMI 40.0-44.9, adult Z68.[address] [address] Mar, Hypertension I10 [place] [address] [address] Nov, Hyperlipidemia, unspecified E78.[address] [address] October, Chest pain, unspecified type R07.9 and Acquired hypothyroidism E03.9 [id number] [place] [address] October, Chest pain, unspecified type R07.9 ; Family history of coronary artery disease Z82.49 ; Carpal tunnel syndrome of left wrist G56.02 ; Hypertension I10 ; Esophageal reflux K21.9 ; Arthralgia M25.50 ; Acquired hypothyroidism E03.9 ; Cough R05 ; Nausea R11.0 ; Weight gain R63.5 and BMI 45.0-49.9, adult Z68.42 [id number] [place] [address] Jun, Acquired hypothyroidism E03.9 and Cough R05 [address] [id number] [place] [address] May, [place] [address] [address] Feb, Tarsal tunnel syndrome of both lower extremities G57.53 and Neuropathy G62.9 [place] [address] [address] Dec, Pleuritis R09.1 [place] [address] [address] Nov, [place] [address] [address] October, Arthralgia, unspecified joint M25.50 and Allergy, initial encounter T78.40XA [place] [address] [address] October, [place] [address] [address] October, Acute recurrent maxillary sinusitis J01.01 and Arthralgia M25.50 [place] [address] [address] Sep, Pharyngitis due to other organism J02.8 [place] [id number] [place] [address] Aug, Acute nasopharyngitis J00 [place] [address] [address] Aug, Multinodular goiter E04.2 [place] [address] [address] Aug, Thyroid nodule E04.1 [place] [id number] [place] [address] Jul, Tarsal tunnel syndrome of both lower extremities G57.53 [place] [address] [place] [address] Jun, Pneumonia due to infectious organism, unspecified laterality, unspecified part of lung J18.9 [place] [address] [address] Jun, Bronchospasm with bronchitis, acute J20.9 [place] [address] [address] May, Acute non-recurrent frontal sinusitis J01.10 [place] [address] [address] May, Flat foot [pes planus] (acquired), left foot M21.42 ; Flat foot [pes planus] (acquired), right foot M21.41 and Neuropathy G62.9 [place] [address] [address] Apr, Chronic tension-type headache, intractable G44.221 ; Right lower quadrant abdominal pain R10.31 ; Cervicalgia M54.2 ; Acute gastritis without hemorrhage, unspecified gastritis type K29.00 and Hypertension I10 [place] [address] [address] Mar, Depression F32.9 and Anxiety disorder, unspecified F41.9 [place] [id number] [place] [address] Feb, Depressive disorder F32.9 and Anxiety disorder, unspecified F41.9 [place] [id number] [place] [address] Jan, Dysuria R30.0 ; Lower abdominal pain R10.30 ; Acute bilateral low back pain without sciatica M54.5 ; Nausea and vomiting, unspecified intactability, vomiting of unspecified type R11.2 ; Pain in right foot M79.671 and Pain of left foot M79.672 [place] [id number] [place] [address] Dec, Urinary tract infection, site not specified N39.0 [facility] [address] [address] Dec, [facility] [id number] [place] [address] Nov, [facility] [id number] [place] [address] Nov, Dysuria R30.0 [facility] [id number] [place] [address] Nov, Dysuria R30.0 and Acute cystitis with hematuria N30.01 [facility] [id number] [place] [address] October, Nausea R11.0 [facility] [id number] [place] [address] October, Thyroid nodule E04.1 ; Carpal tunnel syndrome, left upper limb G56.02 ; Carpal tunnel syndrome, right upper limb G56.01 and Constipation, unspecified constipation type K59.00 [facility] [address] [place] [address] October, [facility] [address] [address] October, Thyroid nodule E04.1 [facility] [address] [place] [address] October, Cold thyroid nodule E04.1 [facility] [address] [address] October, [facility] [id number] [place] [address] Sep, Thyroid nodule E04.1 [facility] [address] [address] Sep, Thyroid nodule E04.1 [facility] [id number] [place] [address] Sep, Thyroid nodule E04.1 ; Hypertension I10 ; Esophageal reflux K21.9 and Hyperlipidemia, unspecified E78.5 [place] [address] [address] 14 Aug, 2015 Other chronic pain G89.29 ; Sinusitis J32.9 and Hypertension I10 [place] [address] [address] Jul, [place] [address] [address] 15 Jul, 2015 [place] [address] [address] 10 Jul, 2015 Insomnia G47.00 and Arthralgia M25.50 [place] [address] [address] 10 Jul, 2015 Depressive disorder F32.9 and Anxiety disorder, unspecified F41.9 [place] [address] [address] May, Right-sided low back pain without sciatica M54.5 and Depression F32.9 [place] [id number] [place] [address] Apr, Hematuria R31.9 [place] [address] [address] Mar, Other chronic pain G89.29 [place] [address] [address] Mar, Other chronic pain G89.29 [place] [address] [address] Feb, [place] [address] [address] 22 Feb, 2015 Other chronic pain 338.29 ; Dysuria 788.1 ; UTI (urinary tract infection) 599.0 ; Insomnia 780.52 ; Hot flashes 627.2 and Hypertension 401.9 [facility] [address] [address] Feb, Dysuria 788.1 [facility] [address] [address] Feb, [facility] [id number] [place] [address] Jan, [facility] [address] [place] [address] Jan, [facility] [id number] [place] [address] Jan, Fibromyalgia 729.1 ; Hypertension 401.9 ; Dysthymia 300.4 and Hot flashes 627.2 [facility] [id number] [address] Dec, [facility] [address] [place] [address] Dec, [facility] [address] [place] [address] Dec, [facility] [address] [address] Nov, Other chronic pain 338.29 [facility] [address] [address] October, [facility] [address] [address] October, [facility] [address], [place] [address] Sep, [facility] [address], [place] [address] Sep, [facility] [id number] [address] Aug, [facility] [place] [facility] [address] [id number] [place] [address] Aug, [facility] [place] [facility] [address] [id number] [place] [address] Aug, [facility] [place] [facility] [address] [id number] [place] [address] Aug, [facility] [place] [facility] [address] [id number] [place] [address] Aug, [facility] [place] [facility] [address] [id number] [place] [address] Aug, [facility] [place] [facility] [address] [id number] [place] [address] Aug, [facility] [place] [facility] [address] [id number] [place] [address] Aug, [facility] [place] [facility] [address] [id number] [place] [address] Aug, [facility] [place] [facility] [address] [id number] [place] [address] Aug, [facility] [place] [facility] [address] [id number] [place] [address] Aug, [facility] [place] [facility] [address] [id number] [place] [address] Aug, [facility] [place] [facility] [address] [id number] [place] [address] Aug, [facility] [place] [facility] [address] [id number] [place] [address] Aug, [facility] [place] [facility] [address] [id number] [place] [address] Jul, [facility] [place] [facility] [address] [id number] [place] [address] Jul, [facility] [place] [facility] [address] [id number] [place] [address] Jul, [facility] [place] [facility] [address] [id number] [place] [address] Jul, [facility] [place] [facility] [address] [id number] [place] [address] Jul, [facility] [place] [facility] [address] [id number] [place] [address] Jul, [facility] [place] [facility] [address] [id number] [place] [address] Jun, [facility] [place] [facility] [address] [id number] [place] [address] Jun, [facility] [place] [facility] [address] [id number] [place] [address] Jun, [facility] [place] [facility] [address] [id number] [place] [address] Jun, [facility] [place] [facility] [address] [id number] [place] [address] May, [facility] [place] [facility] [address] [id number] [place] [address] May, [facility] [place] [facility] [address] [id number] [place] [address] May, [facility] [place] [facility] [address] [id number] [place] [address] May, [facility] [place] [facility] [address] [id number] [place] [address] May, [facility] [place] [facility] [address] [id number] [place] [address] May, [facility] [place] [facility] [address] [id number] [place] [address] May, [facility] [place] [facility] [address] [id number] [address] May, [facility] [place] [facility] [address] [id number] [place] [address] May, [facility] [place] [facility] [address] [id number] [place] [address] May, [facility] [place] [facility] [address] [id number] [place] [address] Apr, [facility] [place] [facility] [address] [id number] [place] [address] Apr, [facility] [place] [facility] [address] [id number] [place] [address] Apr, [facility] [place] [facility] [address] [id number] [place] [address] Apr, [facility] [place] [facility] [address] [id number] [place] [address] Apr, [facility] [place] [facility] [address] [id number] [place] [address] Apr, [facility] [place] [facility] [address] [id number] [place] [address] Apr, [facility] [place] [facility] [address] [id number] [place] [address] Apr, [facility] [place] [facility] [address] [id number], [place] [address] Apr, [facility] [place] [facility] [address] [id number], [place] [address] Mar, [facility] [place] [facility] [address] [id number] [place] [address] Mar, [facility] [place] [facility] [address] [id number] [place] [address] Mar, [facility] [place] [facility] [address] [id number] [place] [address] Mar, [facility] [place] [facility] [address] [id number] [place] [address] 08 Mar, 2013 [facility] [place] [facility] [address] [id number] [place] [address] 08 Mar, 2013 [facility] [place] [facility] [address] [id number] [place] [address] Mar, 2013 [facility] [place] [facility] [address] [id number] [place] [address] 08 Mar, 2013 [facility] [place] [facility] [address] [id number] [place] [address] 30 Sep, 2013 [facility] [place] [facility] [address] [id number] [place] [address] 30 Sep, 2013 [facility] [place] [facility] [address] [id number] [place] [address] 24 Feb, 2013 [facility] [place] [facility] [address] [id number] [place] [address] 24 Feb, 2013 [facility] [place] [facility] [address] [id number] [place] [address] 22 Feb, 2013 [facility] [place] [facility] [address] [id number] [place] [address] 22 Feb, 2013 [facility] [place] [facility] [address] [id number] [place] [address] 10 Feb, 2013 [facility] [place] [facility] [address] [id number] [place] [address] 10 Feb, 2013 [facility] [place] [facility] [address] [id number] [place] [address] 03 Sep, 2013 [facility] [place] [facility] [address] [id number] [place] [address] 03 Sep, 2013 [facility] [place] [facility] [address] [id number] [place] [address] 03 Sep, 2013 [facility] [place] [facility] [address] [id number] [place] [address] Feb, [facility] [place] [facility] [address] [id number] [place] [address] Feb, [facility] [place] [facility] [address] [id number] [place] [address] Feb, [facility] [place] [facility] [address] [id number] [place] [address] Jan, [facility] [place] [facility] [address] [id number] [place] [address] Jan, [facility] [place] [facility] [address] [id number] [place] [address] Dec, [facility] [place] [facility] [address] [id number] [place] [address] Dec, [facility] [place] [facility] [address] [id number] [place] [address] Dec, [facility] [place] [facility] [address] [id number] [place] [address] Dec, [facility] [place] [facility] [address] [id number] [place] [address] Dec, [facility] [place] [facility] [address] [id number] [place] [address] Dec, [facility] [place] [facility] [address] [id number] [place] [address] Dec, [facility] [place] [facility] [address] [id number] [place] [address] Dec, [facility] [place] [facility] [address] [id number] [place] [address] Dec, [facility] [place] [facility] [address] [id number] [place] [address] Dec, [facility] [place] [facility] [address] [id number] [place] [address] Dec, [facility] [place] [facility] [address] [id number] [place] [address] Dec, 2013 [facility] [place] [facility] [address] [id number] [place] [address] Dec, 2013 [facility] [place] [facility] [address] [id number] [place] [address] Dec, 2013 [facility] [place] [facility] [address] [id number] [place] [address] Dec, 2013 [facility] [place] [facility] [address] [id number] [place] [address] Dec, 2013 [facility] [place] [facility] [address] [id number] [place] [address] Dec, [facility] [place] [facility] [address] [id number] [place] [address] Dec, [facility] [place] [facility] [address] [id number] [place] [address] Dec, [facility] [place] [facility] [address] [id number] [place] [address] Nov, [facility] [place] [facility] [address] [id number] [place] [address] Nov, [facility] [place] [facility] [address] [id number] [place] [address] Nov, [facility] [place] [facility] [address] [id number] [place] [address] Nov, [facility] [place] [facility] [address] [id number] [place] [address] Nov, [facility] [place] [facility] [address] [id number] [place] [address] Nov, [facility] [place] [facility] [address] [id number] [place] [address] Nov, [facility] [place] [facility] [address] [id number] [place] [address] Nov, [facility] [place] [facility] [address] [id number] [place] [address] Nov, [facility] [place] [facility] [address] [id number] [place] [address] October, [facility] [place] [facility] [address] [id number] [place] [address] October, [facility] [place] [facility] [address] [id number] [place] [address] October, [facility] [place] [facility] [address] [id number] [place] [address] October, [facility] [place] [facility] [address] [id number] [place] [address] October, [facility] [place] [facility] [address] [id number] [place] [address] October, [facility] [place] [facility] [address] [id number] [place] [address] October, [facility] [place] [facility] [address] [id number] [place] [address] October, [facility] [place] [facility] [address] [id number] [place] [address] Sep, [facility] [place] [facility] [address] [id number] [place] [address] Sep, [facility] [place] [facility] [address] [id number] [place] [address] Sep, [facility] [place] [facility] [address] [id number] [place] [address] Sep, [facility] [place] [facility] [address] [id number] [place] [address] Sep, [facility] [place] [facility] [address] [id number] [place] [address] Sep, [facility] [place] [facility] [address] [id number] [place] [address] Sep, [facility] [place] [facility] [address] [id number] [place] [address] Aug, [facility] [place] [facility] [address] [id number] [place] [address] Aug, [facility] [place] [facility] [address] [id number] [place] [address] Aug, [facility] [place] [facility] [address] [id number] [place] [address] Aug, [facility] [place] [facility] [address] [id number] [place] [address] Aug, [facility] [place] [facility] [address] [id number] [place] [address] Aug, [facility] [place] [facility] [address] [id number] [place] [address] Jul, [facility] [place] [facility] [address] [id number] [place] [address] Jul, [facility] [place] [facility] [address] [id number] [place] [address] Jul, [facility] [place] [facility] [address] [id number] [place] [address] Jul, [facility] [place] [facility] [address] [id number] [place] [address] Jul, [facility] [place] [facility] [address] [id number] [place] [address] Jul, [facility] [place] [facility] [address] [id number] [place] [address] Jun, [facility] [place] [facility] [address] [id number] [place] [address] Jun, [facility] [place] [facility] [address] [id number] [place] [address] Jun, [facility] [place] [facility] [address] [id number] [place] [address] Jun, [facility] [address] [id number] [place] [address] Jun, [facility] [address] [id number] [place] [address] Jun, [facility] [address] [id number] [place] [address] Jun, [facility] [address] [id number] [place] [address] Jun, [facility] [address] [id number] [place] [address] Jun, [facility] [address] [id number] [place] [address] Jun, [facility] [address] [id number] [place] [address] Jun, [facility] [address] [id number] [place] [address] Jun, [facility] [address] [id number] [place] [address] Jun, [facility] [address] [id number] [place] [address] May, [facility] [address] [id number] [place] [address] May, [facility] [address] [id number] [place] [address] May, [facility] [place] [facility] [address] [id number] [place] [address] May, [facility] [address] [id number] [place] [address] May, [facility] [address] [id number] [place] [address] May, [facility] [address] [id number] [place] [address] 14 May, 2013 [facility] [place] [facility] [address] [id number] [place] [address] 12 May, 2013 [facility] [place] [facility] [address] [id number] [place] [address] 12 May, 2013 [facility] [place] [facility] [address] [id number] [place] [address] May, [facility] [place] [facility] [address] [id number] [place] [address] 11 May, 2013 [facility] [place] [facility] [address] [id number] [place] [address] 10 May, 2013 [facility] [place] [facility] [address] [id number] [place] [address] May, [facility] [place] [facility] [address] [id number] [place] [address] May, [facility] [place] [facility] [address] [id number] [place] [address] May, [facility] [place] [facility] [address] [id number] [place] [address] 08 May, 2013 [facility] [place] [facility] [address] [id number] [place] [address] 07 May, 2013 [facility] [place] [facility] [address] [id number], [place] [address] 06 May, 2013 [facility] [place] [facility] [address] [id number] [place] [address] May, [facility] [place] [facility] [address] [id number] [place] [address] May, [facility] [place] [facility] [address] [id number] [place] [address] May, [facility] [place] [facility] [address] [id number] [place] [address] Apr, [facility] [address] [id number] [place] [address] Apr, [facility] [place] [facility] [address] [id number] [place] [address] Apr, [facility] [place] [facility] [address] [id number] [place] [address] Apr, [facility] [place] [facility] [address] [id number] [place] [address] Mar, [facility] [place] [facility] [address] [id number] [place] [address] 23 Feb, 2013 [facility] [place] [facility] [address] [id number] [place] [address] 16 Feb, 2013 [facility] [address] [id number] [place] [address] 13 Feb, 2013 [facility] [place] [facility] [address] [id number] [place] [address] 10 Feb, 2013 [facility] [place] [facility] [address] [id number] [place] [address] 09 Feb, 2013 [facility] [place] [facility] [address] [id number] [place] [address] 09 Feb, 2013 [facility] [place] [facility] [address] [id number] [place] [address] Jan, [facility] [place] [facility] [address] [id number] [place] [address] Jan, [facility] [place] [facility] [address] [id number] [place] [address] Jan, [facility] [place] [facility] [address] [id number] [place] [address] Dec, [facility] [place] [facility] [address] [id number] [place] [address] Dec, [facility] [place] [facility] [address] [id number] [place] [address] 17 Dec, 2012 [facility] [place] [facility] [address] [id number] [place] [address] 15 Dec, 2012 [facility] [place] [facility] [address] [id number] [place] [address] Dec, [facility] [place] [facility] [address] [id number] [place] [address] Nov, [facility] [place] [facility] [address] [id number] [place] [address] Nov, [facility] [place] [facility] [address] [id number] [place] [address] Nov, [facility] [place] [facility] [address] [id number] [place] [address] Nov, [facility] [place] [facility] [address] [id number] [place] [address] Nov, [facility] [place] [facility] [address] [id number] [place] [address] Nov, [facility] [place] [facility] [address] [id number] [place] [address] Nov, [facility] [place] [facility] [address] [id number] [place] [address] Nov, [facility] [place] [facility] [address] [id number] [place] [address] Nov, [facility] [place] [facility] [address] [id number] [place] [address] Nov, [facility] [place] [facility] [address] [id number] [place] [address] October, [facility] [place] [facility] [address] [id number] [place] [address] October, [facility] [place] [facility] [address] [id number] [place] [address] Sep, [facility] [address] [id number] [place] [address] Sep, [facility] [place] [facility] [address] [id number] [place] [address] Sep, [facility] [address] [facility] [id number] [place] [address] Sep, [facility] [place] [facility] [address] [id number] [place] [address] Sep, [facility] [address] [id number] [place] [address] Aug, [facility] [place] [facility] [address] [id number] [place] [address] Aug, [facility] [address] [id number] [place] [address] Jul, [facility] [place] [facility] [address] [id number] [place] [address] Jul, [facility] [address] [id number] [place] [address] Jun, [facility] [address] [id number] [place] [address] Jun, [facility] [address] [id number], [place] [address] May, [facility] [place] [facility] [address] [id number], [place] [address] May, [facility] [place] [facility] [address] [id number] [place] [address] May, [facility] [place] [facility] [address] [facility] [id number] [place] [address] May, [facility] [place] [facility] [address] [facility] [id number] [place] [address] Apr, [facility] [place] [facility] [address] [id number] [place] [address] 27 Apr, 2012 [facility] [place] [facility] [address] [id number] [place] [address] 23 Apr, 2012 [facility] [place] [facility] [address] [id number] [place] [address] Apr, [facility] [place] [facility] [address] [id number] [place] [address] 20 Apr, 2012 [facility] [place] [facility] [address] [id number] [place] [address] 14 Apr, 2012 [facility] [place] [facility] [address] [id number] [place] [address], [place] [address] 14 Apr, 2012 [facility] [place] [facility] [address] [id number] [place] [address] Apr, [facility] [place] [facility] [address] [facility] [id number] [place] [address] Apr, [facility] [place] [facility] [address] [id number] [place] [address] Mar, [facility] [place] [facility] [address] [facility] [id number] [place] [address] Mar, [facility] [place] [facility] [address] [facility] [id number] [place] [address] Feb, [facility] [place] [facility] [address] [id number] [place] [address] Jan, [facility] [place] [facility] [address] [id number] [place] [address] Jan, [facility] [place] [facility] [address] [id number] [place] [address] Dec, [facility] [place] [facility] [address] [id number] [place] [address] Nov, [facility] [place] [facility] [address] [facility] [id number] [place] [address] Nov, [facility] [place] [facility] [address] [id number] [place] [address] October, [facility] [place] [facility] [address] [id number] [place] [address] October, [facility] [place] [facility] [address] [id number] [place] [address] Sep, [facility] [place] [facility] [address] [id number] [place] [address] Sep, [facility] [place] [facility] [address] [id number] [place] [address] May, [facility] [place] [facility] [address] [id number] [place] [address] Apr, [facility] [place] [facility] [address] [id number] [place] [address] Apr, [facility] [place] [facility] [address] [id number], [place] [address] Apr, [facility] [place] [facility] [address] [id number] [place] [address] Apr, [facility] [place] [facility] [address] [id number], [place] [address] Apr, [facility] [place] [facility] [address] [id number], [place] [address] Apr, [facility] [place] [facility] [address] [id number], [place] [address] Apr, [facility] [place] [facility] [address] [id number], [place] [address] Apr, [facility] [place] [facility] [address] [id number], [place] [address] Mar, [facility] [place] [facility] [address] [id number], [place] [address] Mar, [facility] [place] [facility] [address] [id number], [place] [address] Mar, [facility] [address] [facility] [id number] [place] [address] Mar, [facility] [address] [facility] [id number], [place] [address] Mar, [facility] [address] [facility] [id number] [place] [address] Mar, IMMUNIZATIONS No Known Immunizations SOCIAL HISTORY Never Assessed REASON FOR VISIT [facility] [place] VITAL SIGNS MEDICATIONS No [...] Stomach surgeryx3 Hospitalization History Mental floor at [facility]
--- OUTSIDE RECORDS SUMMARY | 2018-10-27 16:05 | XMS REPORT ---
Author Author Migration, Doctor Organization [facility] Address Unknown Phone Unavailable Care Team Providers Care Milling Machine Set Up Operator Name Role Phone Migration, Doctor Unavailable Unavailable PROBLEMS Type Condition ICD9-CM Code TWL36-UO Code Onset Dates Condition Status SNOMED Code Problem Presbyopia H52.4 Active 59788228 Problem Nondependent 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 Active 818426818 Problem Unspecified open-angle glaucoma, stage unspecified H40.10X0 Feb, Active 42692887 Problem Other chronic pain G89.29 Active 362859605 Problem Unspecified epilepsy without mention of intractable epilepsy G40.909 Active 96992001 Problem Hyperlipidemia, unspecified E78.5 Active 42434756 Problem Hypertension I10 Active 11970096 Problem Goiter E04.9 Active 1596445 Problem Multinodular goiter E04.2 Active 594938749 Problem Right-sided low back pain without sciatica M54.5 Active 098148376 Problem Depression F32.9 Active 55130372 Problem Insomnia G47.00 Active 467244121 Problem Arthralgia M25.50 Active 04556792 Problem Thyroid nodule E04.1 Active 065411337 Problem Anxiety disorder, unspecified F41.9 Active 575689898 Problem Chronic tension-type headache, intractable G44.221 Active 943486795 Problem Neuropathy G62.9 Active 906495105 Problem Acquired hypothyroidism E03.9 Active 917425563 Problem Cough R05 Active 79987328 Problem Carpal tunnel syndrome of left wrist G56.02 Active [id number] Problem Abnormal laboratory test R89.9 Active 650262438 Problem Esophageal reflux K21.9 Active 807740609 Problem COPD with exacerbation J44.1 Active 111324577 Problem Rheumatoid arthritis M06.9 Active 50243416 Problem Depressive disorder F32.9 Active 48426489 Problem Chronic obstructive pulmonary disease, unspecified COPD type J44.9 Active 53156464 Problem BMI 40.0-44.9, adult Z68.41 Active 718911331 Problem Reactive airway disease without complication, unspecified asthma severity, unspecified whether persistent J45.909 Active 495768006064 Problem Urge incontinence of urine N39.41 Active 68977708 ALLERGIES No Information ENCOUNTERS Encounter Location Date Diagnosis [facility] [id number] [place] [address] Jul, COPD with exacerbation J44.1 ; Viral upper respiratory tract infection J06.9 and Morbid obesity E66.01 [facility] [id number] [place] [address] Jun, Viral upper respiratory tract infection J06.9 [address] [id number] [place] [address] Apr, Abnormal laboratory test R89.9 [place] [id number] [place] [address] Apr, Abnormal laboratory test R89.9 [address] [address] [address] Apr, Abnormal laboratory test R89.9 [place] [id number] [place] [address] Apr, [place] [id number] [place] [address] Apr, [place] [id number] [place] [address] Apr, Nonintractable episodic headache, unspecified headache type R51 ; Urge incontinence of urine N39.41 ; BMI 40.0-44.9, adult Z68.41 ; Myalgia M79.10 and Acute cystitis without hematuria N30.00 [address] [address] [address] Mar, Nasal congestion R09.81 ; Low back pain M54.5 ; Reactive airway disease without complication, unspecified asthma severity, unspecified whether persistent J45.909 ; Other chronic pain G89.29 ; Acute cystitis with hematuria N30.01 and BMI 40.0-44.9, adult Z68.41 [facility] [id number] [place] [address] Mar, Acute cystitis with hematuria N30.01 [facility] [id number] [place] [address] Mar, BMI 40.0-44.9, adult Z68.41 ; Acute cystitis with hematuria N30.01 ; Acute bilateral low back pain without sciatica M54.5 and Nausea R11.0 [address] [address] [address] Mar, Hypertension I10 ; Acquired hypothyroidism E03.9 ; Esophageal reflux K21.9 ; Chronic obstructive pulmonary disease, unspecified COPD type J44.9 and BMI 40.0-44.9, adult Z68.[address] [address] Mar, Hypertension I10 [address] [address] [address] Nov, Hyperlipidemia, unspecified E78.[address] [address] October, Chest pain, unspecified type R07.9 and Acquired hypothyroidism E03.9 [id number] [place] [address] October, Chest pain, unspecified type R07.9 ; Family history of coronary artery disease Z82.49 ; Carpal tunnel syndrome of left wrist G56.02 ; Hypertension I10 ; Esophageal reflux K21.9 ; Arthralgia M25.50 ; Acquired hypothyroidism E03.9 ; Cough R05 ; Nausea R11.0 ; Weight gain R63.5 and BMI 45.0-49.9, adult Z68.42 [id number] [place] [address] Jun, Acquired hypothyroidism E03.9 and Cough R05 [id number] [place] [address] May, [address] [address] [address] Feb, Tarsal tunnel syndrome of both lower extremities G57.53 and Neuropathy G62.9 [address] [address] [address] Dec, Pleuritis R09.1 [address] [address] [address] Nov, [address] [address] [address] October, Arthralgia, unspecified joint M25.50 and Allergy, initial encounter T78.40XA [address] [address] [address] October, [address] [address] [address] October, Acute recurrent maxillary sinusitis J01.01 and Arthralgia M25.50 [address] [address] [address] Sep, Pharyngitis due to other organism J02.8 [place] [id number] [place] [address] Aug, Acute nasopharyngitis J00 [address] [address] [address] Aug, Multinodular goiter E04.2 [address] [address] [address] Aug, Thyroid nodule E04.1 [place] [id number] [place] [address] Jul, Tarsal tunnel syndrome of both lower extremities G57.53 [place] [address] [place] [address] Jun, Pneumonia due to infectious organism, unspecified laterality, unspecified part of lung J18.9 [address] [address] [address] Jun, Bronchospasm with bronchitis, acute J20.9 [address] [address] [address] May, Acute non-recurrent frontal sinusitis J01.10 [address] [address] [address] May, Flat foot [pes planus] (acquired), left foot M21.42 ; Flat foot [pes planus] (acquired), right foot M21.41 and Neuropathy G62.9 [address] [address] Apr, Chronic tension-type headache, intractable G44.221 ; Right lower quadrant abdominal pain R10.31 ; Cervicalgia M54.2 ; Acute gastritis without hemorrhage, unspecified gastritis type K29.00 and Hypertension I10 [address] [address] [address] [address] Mar, Depression F32.9 and Anxiety disorder, unspecified F41.9 [place] [id number] [place] [address] Feb, Depressive disorder F32.9 and Anxiety disorder, unspecified F41.9 [place] [id number] [place] [address] Jan, Dysuria R30.0 ; Lower abdominal pain R10.30 ; Acute bilateral low back pain without sciatica M54.5 ; Nausea and vomiting, unspecified intactability, vomiting of unspecified type R11.2 ; Pain in right foot M79.671 and Pain of left foot M79.672 [address] [id number] [place] [address] Dec, Urinary tract infection, site not specified N39.0 [facility] [address] [address] Dec, [facility] [id number] [place] [address] Nov, [facility] [id number] [place] [address] Nov, Dysuria R30.0 [facility] [id number] [place] [address] Nov, Dysuria R30.0 and Acute cystitis with hematuria N30.01 [facility] [id number] [place] [address] October, Nausea R11.0 [facility] [id number] [place] [address] October, Thyroid nodule E04.1 ; Carpal tunnel syndrome, left upper limb G56.02 ; Carpal tunnel syndrome, right upper limb G56.01 and Constipation, unspecified constipation type K59.00 [facility] [id number] [place] [address] October, [facility] [address] [address] October, Thyroid nodule E04.1 [facility] [id number] [place] [address] October, Cold thyroid nodule E04.1 [facility] [address] [address] October, [facility] [id number] [place] [address] Sep, Thyroid nodule E04.1 [facility] [address] [address] Sep, Thyroid nodule E04.1 [facility] [id number] [place] [address] Sep, Thyroid nodule E04.1 ; Hypertension I10 ; Esophageal reflux K21.9 and Hyperlipidemia, unspecified E78.5 [address] [address] [address] 14 Aug, 2015 Other chronic pain G89.29 ; Sinusitis J32.9 and Hypertension I10 [address] [address] Jul, [address] [address] [address] 15 Jul, 2015 [address] [address] [address] 10 Jul, 2015 Insomnia G47.00 and Arthralgia M25.50 [address] [address] [address] 10 Jul, 2015 Depressive disorder F32.9 and Anxiety disorder, unspecified F41.9 [address] [address] [address] May, Right-sided low back pain without sciatica M54.5 and Depression F32.9 [place] [id number] [place] [address] Apr, Hematuria R31.9 [address] [address] [address] Mar, Other chronic pain G89.29 [address] [address] [address] Mar, Other chronic pain G89.29 [address] [address] [address] Feb, [address] [address] [address] 22 Feb, 2015 Other chronic pain 338.29 ; Dysuria 788.1 ; UTI (urinary tract infection) 599.0 ; Insomnia 780.52 ; Hot flashes 627.[address] [facility] [address] [address] Feb, Dysuria [address] [facility] [address] [address] Feb, [facility] [id number] [place] [address] Jan, [facility] [id number] [place] [address] Jan, [facility] [id number] [place] [address] Jan, Fibromyalgia 729.1 ; Hypertension 401.9 ; Dysthymia 300.[address] [facility] [id number] [address] Dec, [facility] [address] [address] Dec, [facility] [id number] [place] [address] Dec, [facility] [address] [address] Nov, Other chronic pain 338.29 [facility] [address] [address] October, [facility] [address] [address] October, [facility] [address] [address] Sep, [facility] [address] [address] Sep, [facility] [id number] [address] Aug, [facility] [place] [facility] [address] [id number] [place] [address] Aug, [facility] [place] [facility] [address] [id number] [place] [address] Aug, [facility] [place] [facility] [address] [id number] [place] [address] Aug, [facility] [place] [facility] [address] [id number] [place] [address] Aug, [facility] [place] [facility] [address] [id number] [place] [address] Aug, [facility] [place] [facility] [address] [id number] [place] [address] Aug, [facility] [place] [facility] [address] [id number] [place] [address] Aug, [facility] [place] [facility] [address] [id number] [place] [address] Aug, [facility] [place] [facility] [address] [id number] [place] [address] Aug, [facility] [place] [facility] [address] [id number] [place] [address] Aug, [facility] [place] [facility] [address] [id number] [place] [address] Aug, [facility] [place] [facility] [address] [id number] [place] [address] Aug, [facility] [place] [facility] [address] [id number] [place] [address] Aug, [facility] [place] [facility] [address] [id number] [place] [address] Jul, [facility] [place] [facility] [address] [id number] [place] [address] Jul, [facility] [place] [facility] [address] [id number] [place] [address] Jul, [facility] [place] [facility] [address] [id number] [place] [address] Jul, [facility] [place] [facility] [address] [id number] [place] [address] Jul, [facility] [place] [facility] [address] [id number] [place] [address] Jul, [facility] [place] [facility] [address] [id number] [place] [address] Jun, [facility] [place] [facility] [address] [id number] [place] [address] Jun, [facility] [place] [facility] [address] [id number] [place] [address] Jun, [facility] [place] [facility] [address] [id number] [place] [address] Jun, [facility] [place] [facility] [address] [id number] [place] [address] May, [facility] [place] [facility] [address] [id number] [place] [address] May, [facility] [place] [facility] [address] [id number] [place] [address] May, [facility] [place] [facility] [address] [id number] [place] [address] May, [facility] [place] [facility] [address] [id number] [place] [address] May, [facility] [place] [facility] [address] [id number] [place] [address] May, [facility] [place] [facility] [address] [id number] [place] [address] May, [facility] [place] [facility] [address] [id number] [address] May, [facility] [place] [facility] [address] [id number] [place] [address] May, [facility] [place] [facility] [address] [id number] [place] [address] May, [facility] [place] [facility] [address] [id number] [place] [address] Apr, [facility] [place] [facility] [address] [id number] [place] [address] Apr, [facility] [place] [facility] [address] [id number] [place] [address] Apr, [facility] [place] [facility] [address] [id number] [place] [address] Apr, [facility] [place] [facility] [address] [id number] [place] [address] Apr, [facility] [place] [facility] [address] [id number] [place] [address] Apr, [facility] [place] [facility] [address] [id number] [place] [address] Apr, [facility] [place] [facility] [address] [id number] [place] [address] Apr, [facility] [place] [facility] [address] [id number], [place] [address] Apr, [facility] [place] [facility] [address] [id number] [address] Mar, [facility] [place] [facility] [address] [id number] [place] [address] Mar, [facility] [place] [facility] [address] [id number] [place] [address] Mar, [facility] [place] [facility] [address] [id number] [place] [address] Mar, [facility] [place] [facility] [address] [id number] [place] [address] 08 Mar, 2013 [facility] [place] [facility] [address] [id number] [place] [address] 08 Mar, 2013 [facility] [place] [facility] [address] [id number] [place] [address] Mar, 2013 [facility] [place] [facility] [address] [id number] [place] [address] 08 Mar, 2013 [facility] [place] [facility] [address] [id number] [place] [address] 30 Sep, 2013 [facility] [place] [facility] [address] [id number] [place] [address] 30 Sep, 2013 [facility] [place] [facility] [address] [id number] [place] [address] 24 Feb, 2013 [facility] [place] [facility] [address] [id number] [place] [address] 24 Feb, 2013 [facility] [place] [facility] [address] [id number] [place] [address] 22 Feb, 2013 [facility] [place] [facility] [address] [id number] [place] [address] 22 Feb, 2013 [facility] [place] [facility] [address] [id number] [place] [address] 10 Feb, 2013 [facility] [place] [facility] [address] [id number] [place] [address] 10 Feb, 2013 [facility] [place] [facility] [address] [id number] [place] [address] 03 Sep, 2013 [facility] [place] [facility] [address] [id number] [place] [address] 03 Sep, 2013 [facility] [place] [facility] [address] [id number] [place] [address] 03 Sep, 2013 [facility] [place] [facility] [address] [id number] [place] [address] Feb, [facility] [place] [facility] [address] [id number] [place] [address] Feb, [facility] [place] [facility] [address] [id number] [place] [address] Feb, [facility] [place] [facility] [address] [id number] [place] [address] Jan, [facility] [place] [facility] [address] [id number] [place] [address] Jan, [facility] [place] [facility] [address] [id number] [place] [address] Dec, [facility] [place] [facility] [address] [id number] [place] [address] Dec, [facility] [place] [facility] [address] [id number] [place] [address] Dec, [facility] [place] [facility] [address] [id number] [place] [address] Dec, [facility] [place] [facility] [address] [id number] [place] [id number] Dec, [facility] [place] [facility] [address] [id number] [place] [address] Dec, [facility] [place] [facility] [address] [id number] [place] [address] Dec, [facility] [place] [facility] [address] [id number] [place] [address] Dec, [facility] [place] [facility] [address] [id number] [place] [address] Dec, [facility] [place] [facility] [address] [id number] [place] [address] Dec, [facility] [place] [facility] [address] [id number] [place] [address] Dec, [facility] [place] [facility] [address] [id number] [place] [address] Dec, 2013 [facility] [place] [facility] [address] [id number] [place] [address] Dec, 2013 [facility] [place] [facility] [address] [id number] [place] [address] Dec, 2013 [facility] [place] [facility] [address] [id number] [place] [address] Dec, 2013 [facility] [place] [facility] [address] [id number] [place] [address] Dec, 2013 [facility] [place] [facility] [address] [id number] [place] [address] Dec, [facility] [place] [facility] [address] [id number] [place] [address] Dec, [facility] [place] [facility] [address] [id number] [place] [address] Dec, [facility] [place] [facility] [address] [id number] [place] [address] Nov, [facility] [place] [facility] [address] [id number] [place] [address] Nov, [facility] [place] [facility] [address] [id number] [place] [address] Nov, [facility] [place] [facility] [address] [id number] [place] [address] Nov, [facility] [place] [facility] [address] [id number] [place] [address] Nov, [facility] [place] [facility] [address] [id number] [place] [address] Nov, [facility] [place] [facility] [address] [id number] [place] [address] Nov, [facility] [place] [facility] [address] [id number] [place] [address] Nov, [facility] [place] [facility] [address] [id number] [place] [address] Nov, [facility] [place] [facility] [address] [id number] [place] [address] October, [facility] [place] [facility] [address] [id number] [place] [address] October, [facility] [place] [facility] [address] [id number] [place] [address] October, [facility] [place] [facility] [address] [id number] [place] [address] October, [facility] [place] [facility] [address] [id number] [place] [address] October, [facility] [place] [facility] [address] [id number] [place] [address] October, [facility] [place] [facility] [address] [id number] [place] [address] October, [facility] [place] [facility] [address] [id number] [place] [address] October, [facility] [place] [facility] [address] [id number] [place] [address] Sep, [facility] [place] [facility] [address] [id number] [place] [address] Sep, [facility] [place] [facility] [address] [id number] [place] [address] Sep, [facility] [place] [facility] [address] [id number] [place] [address] Sep, [facility] [place] [facility] [address] [id number] [place] [address] Sep, [facility] [place] [facility] [address] [id number] [place] [address] Sep, [facility] [place] [facility] [address] [id number] [place] [address] Sep, [facility] [place] [facility] [address] [id number] [place] [address] Aug, [facility] [place] [facility] [address] [id number] [place] [address] Aug, [facility] [place] [facility] [address] [id number] [place] [address] Aug, [facility] [place] [facility] [address] [id number] [place] [address] Aug, [facility] [place] [facility] [address] [id number] [place] [address] Aug, [facility] [place] [facility] [address] [id number] [place] [address] Aug, [facility] [place] [facility] [address] [id number] [place] [address] Jul, [facility] [place] [facility] [address] [id number] [place] [address] Jul, [facility] [place] [facility] [address] [id number] [place] [address] Jul, [facility] [place] [facility] [address] [id number] [place] [address] Jul, [facility] [place] [facility] [address] [id number] [place] [address] Jul, [facility] [place] [facility] [address] [id number] [place] [address] Jul, [facility] [place] [facility] [address] [id number] [place] [address] Jun, [facility] [place] [facility] [address] [id number] [place] [address] Jun, [facility] [place] [facility] [address] [id number] [place] [address] Jun, [facility] [place] [facility] [address] [id number] [place] [address] Jun, [facility] [address] [id number] [place] [address] Jun, [facility] [address] [id number] [place] [address] Jun, [facility] [address] [id number] [place] [address] Jun, [facility] [address] [id number] [place] [address] Jun, [facility] [address] [id number] [place] [address] Jun, [facility] [address] [id number] [place] [address] Jun, [facility] [address] [id number] [place] [address] Jun, [facility] [address] [id number] [place] [address] Jun, [facility] [address] [id number] [place] [address] Jun, [facility] [address] [id number] [place] [address] May, [facility] [address] [id number] [place] [address] May, [facility] [address] [id number] [place] [address] May, [facility] [place] [facility] [address] [id number] [place] [address] May, [facility] [address] [id number] [place] [address] May, [facility] [address] [id number] [place] [address] May, [facility] [address] [id number] [place] [address] 14 May, 2013 [facility] [place] [facility] [address] [id number] [place] [address] 12 May, 2013 [facility] [place] [facility] [address] [id number] [place] [address] 12 May, 2013 [facility] [place] [facility] [address] [id number] [place] [address] May, [facility] [place] [facility] [address] [id number] [place] [address] 11 May, 2013 [facility] [place] [facility] [address] [id number] [place] [address] 10 May, 2013 [facility] [place] [facility] [address] [id number] [place] [address] May, [facility] [place] [facility] [address] [id number] [place] [address] May, [facility] [place] [facility] [address] [id number] [place] [address] May, [facility] [place] [facility] [address] [id number] [place] [address] 08 May, 2013 [facility] [place] [facility] [address] [id number] [place] [address] 07 May, 2013 [facility] [place] [facility] [address] [id number] [address] 06 May, 2013 [facility] [place] [facility] [address] [id number] [place] [address] May, [facility] [place] [facility] [address] [id number] [place] [address] May, [facility] [place] [facility] [address] [id number] [place] [address] May, [facility] [place] [facility] [address] [id number] [place] [address] Apr, [facility] [address] [id number] [place] [address] Apr, [facility] [place] [facility] [address] [id number] [place] [address] Apr, [facility] [place] [facility] [address] [id number] [place] [address] Apr, [facility] [place] [facility] [address] [id number] [place] [address] Mar, [facility] [place] [facility] [address] [id number] [place] [address] 23 Feb, 2013 [facility] [place] [facility] [address] [id number] [place] [address] 16 Feb, 2013 [facility] [address] [id number] [place] [address] 13 Feb, 2013 [facility] [place] [facility] [address] [id number] [place] [address] 10 Feb, 2013 [facility] [place] [facility] [address] [id number] [place] [address] 09 Feb, 2013 [facility] [place] [facility] [address] [id number] [place] [address] 09 Feb, 2013 [facility] [place] [facility] [address] [id number] [place] [address] Jan, [facility] [place] [facility] [address] [id number] [place] [address] Jan, [facility] [place] [facility] [address] [id number] [place] [address] Jan, [facility] [place] [facility] [address] [id number] [place] [address] Dec, [facility] [place] [facility] [address] [id number] [place] [address] Dec, [facility] [place] [facility] [address] [id number] [place] [address] 17 Dec, 2012 [facility] [place] [facility] [address] [id number] [place] [address] 15 Dec, 2012 [facility] [place] [facility] [address] [id number] [place] [address] Dec, [facility] [place] [facility] [address] [id number] [place] [address] Nov, [facility] [place] [facility] [address] [id number] [place] [address] Nov, [facility] [place] [facility] [address] [id number] [place] [address] Nov, [facility] [place] [facility] [address] [id number] [place] [address] Nov, [facility] [place] [facility] [address] [id number] [place] [address] Nov, [facility] [place] [facility] [address] [id number] [place] [address] Nov, [facility] [place] [facility] [address] [id number] [place] [address] Nov, [facility] [place] [facility] [address] [id number] [place] [address] Nov, [facility] [place] [facility] [address] [id number] [place] [address] Nov, [facility] [place] [facility] [address] [id number] [place] [address] Nov, [facility] [place] [facility] [address] [id number] [place] [address] October, [facility] [place] [facility] [address] [id number] [place] [address] October, [facility] [place] [facility] [address] [id number] [place] [address] Sep, [facility] [address] [id number] [place] [address] Sep, [facility] [place] [facility] [address] [id number] [place] [address] Sep, [facility] [address] [facility] [place] [id number] [place] [address] Sep, [facility] [place] [facility] [address] [id number] [place] [address] Sep, [facility] [address] [id number] [place] [address] Aug, [facility] [place] [facility] [address] [id number] [place] [address] Aug, [facility] [address] [id number] [place] [address] Jul, [facility] [place] [facility] [address] [id number] [place] [address] Jul, [facility] [address] [id number] [place] [address] Jun, [facility] [address] [id number] [place] [address] Jun, [facility] [address] [id number], [place] [address] May, [facility] [place] [facility] [address] [id number], [place] [address] May, [facility] [place] [facility] [address] [id number] [place] [address] May, [facility] [place] [facility] [address] [facility] [place] [id number] [place] [address] May, [facility] [place] [facility] [address] [facility] [place] [id number] [place] [address] Apr, [facility] [place] [facility] [address] [id number] [place] [address] 27 Apr, 2012 [facility] [place] [facility] [address] [id number] [place] [address] 23 Apr, 2012 [facility] [place] [facility] [address] [id number] [place] [address] Apr, [facility] [place] [facility] [address] [id number] [place] [address] 20 Apr, 2012 [facility] [place] [facility] [address] [id number] [place] [address] 14 Apr, 2012 [facility] [place] [facility] [address] [id number] [place] [address], [place] [address] 14 Apr, 2012 [facility] [place] [facility] [address] [id number] [place] [address] Apr, [facility] [place] [facility] [address] [facility] [place] [facility] [id number] [place] [address] Apr, [facility] [place] [facility] [address] [id number] [place] [address] Mar, [facility] [place] [facility] [address] [facility] [place] [id number] [place] [address] Mar, [facility] [place] [facility] [address] [facility] [place] [id number] [place] [address] Feb, [facility] [place] [facility] [address] [id number] [place] [address] Jan, [facility] [place] [facility] [address] [id number] [place] [address] Jan, [facility] [place] [facility] [address] [id number] [place] [address] Dec, [facility] [place] [facility] [address] [id number] [place] [address] Nov, [facility] [place] [facility] [address] [facility] [place] [id number] [place] [address] Nov, [facility] [place] [facility] [address] [id number] [place] [address] October, [facility] [place] [facility] [address] [id number] [place] [address] October, [facility] [place] [facility] [address] [id number] [place] [address] Sep, [facility] [place] [facility] [address] [id number] [place] [address] Sep, [facility] [place] [facility] [address] [id number] [place] [address] May, [facility] [place] [facility] [address] [id number] [place] [address] Apr, [facility] [place] [facility] [address] [id number] [place] [address] Apr, [facility] [place] [facility] [address] [id number], [place] [address] Apr, [facility] [place] [facility] [address] [id number] [place] [address] Apr, [facility] [place] [facility] [address] [id number], [place] [address] Apr, [facility] [place] [facility] [address] [id number], [place] [address] Apr, [facility] [place] [facility] [address] [id number], [place] [address] Apr, [facility] [place] [facility] [address] [id number], [place] [address] Apr, [facility] [place] [facility] [address] [id number], [place] [address] Mar, [facility] [place] [facility] [address] [id number], [place] [address] Mar, [facility] [place] [facility] [address] [id number], [place] [address] Mar, [facility] [address] [facility] [place] [id number] [place] [address] Mar, [facility] [address] [facility] [place]] [id number][place] [address] Mar, [facility] [address] [facility] [place] [id number] [place] [address] Mar, IMMUNIZATIONS No Known Immunizations SOCIAL HISTORY Never Assessed REASON FOR VISIT [facility] [place] VITAL SIGNS MEDICATIONS No [...] Stomach surgeryx3 Hospitalization History Mental floor at [facility]
--- OUTSIDE RECORDS SUMMARY | 2018-10-27 16:06 | XMS REPORT ---
Author Author Migration, Doctor Organization [facility] Address Unknown Phone Unavailable Care Team Providers Care Sports Leadership Instructor Name Role Phone Migration, Doctor Unavailable Unavailable PROBLEMS Type Condition ICD9-CM Code [id number] Code Onset Dates Condition Status SNOMED Code Problem Presbyopia H52.4 Active 90985127 Problem Nondependent 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 Active 787840697 Problem Unspecified open-angle glaucoma, stage unspecified H40.10X0 Feb, Active 35133455 Problem Other chronic pain G89.29 Active 917578430 Problem Unspecified epilepsy without mention of intractable epilepsy G40.909 Active 90954148 Problem Hyperlipidemia, unspecified E78.5 Active 90375996 Problem Hypertension I10 Active 75379784 Problem Goiter E04.9 Active 9697854 Problem Multinodular goiter E04.2 Active 456263253 Problem Right-sided low back pain without sciatica M54.5 Active 182837389 Problem Depression F32.9 Active 98909943 Problem Insomnia G47.00 Active 476199307 Problem Arthralgia M25.50 Active 82661005 Problem Thyroid nodule E04.1 Active 100491108 Problem Anxiety disorder, unspecified F41.9 Active 456506998 Problem Chronic tension-type headache, intractable G44.221 Active 494236740 Problem Neuropathy G62.9 Active 792785054 Problem Acquired hypothyroidism E03.9 Active 944873035 Problem Cough R05 Active 21728657 Problem Carpal tunnel syndrome of left wrist G56.02 Active [id number] Problem Abnormal laboratory test R89.9 Active 511415964 Problem Esophageal reflux K21.9 Active 114884671 Problem COPD with exacerbation J44.1 Active 652536991 Problem Rheumatoid arthritis M06.9 Active 70736459 Problem Depressive disorder F32.9 Active 19099790 Problem Chronic obstructive pulmonary disease, unspecified COPD type J44.9 Active 41777472 Problem BMI 40.0-44.9, adult Z68.41 Active 421491352 Problem Reactive airway disease without complication, unspecified asthma severity, unspecified whether persistent J45.909 Active 067619985547 Problem Urge incontinence of urine N39.41 Active 41287923 ALLERGIES No Information ENCOUNTERS Encounter Location Date Diagnosis [facility] [id number] [place] [address] Jul, COPD with exacerbation J44.1 ; Viral upper respiratory tract infection J06.9 and Morbid obesity E66.01 [facility] [id number] [place] [address] Jun, Viral upper respiratory tract infection J06.9 [place] [id number] [place] [address] Apr, Abnormal laboratory test R89.9 [place] [id number] [place] [address] Apr, Abnormal laboratory test R89.9 [place] [address] [address] Apr, Abnormal laboratory test R89.9 [place] [id number] [place] [address] Apr, [place] [id number] [place] [address] Apr, [place] [id number] [place] [address] Apr, Nonintractable episodic headache, unspecified headache type R51 ; Urge incontinence of urine N39.41 ; BMI 40.0-44.9, adult Z68.41 ; Myalgia M79.10 and Acute cystitis without hematuria N30.00 [place] [address] [address] Mar, Nasal congestion R09.81 ; Low back pain M54.5 ; Reactive airway disease without complication, unspecified asthma severity, unspecified whether persistent J45.909 ; Other chronic pain G89.29 ; Acute cystitis with hematuria N30.01 and BMI 40.0-44.9, adult Z68.41 [facility] [id number] [place] [address] Mar, Acute cystitis with hematuria N30.01 [facility] [id number] [place] [address] Mar, BMI 40.0-44.9, adult Z68.41 ; Acute cystitis with hematuria N30.01 ; Acute bilateral low back pain without sciatica M54.5 and Nausea R11.0 [place] [address] [address] Mar, Hypertension I10 ; Acquired hypothyroidism E03.9 ; Esophageal reflux K21.9 ; Chronic obstructive pulmonary disease, unspecified COPD type J44.9 and BMI 40.0-44.9, adult Z68.[address] [address] Mar, Hypertension I10 [place] [address] [address] Nov, Hyperlipidemia, unspecified E78.[address] [address] October, Chest pain, unspecified type R07.9 and Acquired hypothyroidism E03.9 [id number] [place] [address] October, Chest pain, unspecified type R07.9 ; Family history of coronary artery disease Z82.49 ; Carpal tunnel syndrome of left wrist G56.02 ; Hypertension I10 ; Esophageal reflux K21.9 ; Arthralgia M25.50 ; Acquired hypothyroidism E03.9 ; Cough R05 ; Nausea R11.0 ; Weight gain R63.5 and BMI 45.0-49.9, adult Z68.42 [id number] [place] [address] Jun, Acquired hypothyroidism E03.9 and Cough R05 [id number] [place] [address] May, [place] [address] [address] Feb, Tarsal tunnel syndrome of both lower extremities G57.53 and Neuropathy G62.9 [place] [address] [address] Dec, Pleuritis R09.1 [place] [address] [address] Nov, [place] [address] [address] October, Arthralgia, unspecified joint M25.50 and Allergy, initial encounter T78.40XA [place] [address] [address] October, [place] [address] [address] October, Acute recurrent maxillary sinusitis J01.01 and Arthralgia M25.50 [place] [address] [address] Sep, Pharyngitis due to other organism J02.8 [place] [id number] [place] [address] Aug, Acute nasopharyngitis J00 [place] [address] [address] Aug, Multinodular goiter E04.2 [place] [address] [address] Aug, Thyroid nodule E04.1 [place] [id number] [place] [address] Jul, Tarsal tunnel syndrome of both lower extremities G57.53 [place] [address] [place] [address] Jun, Pneumonia due to infectious organism, unspecified laterality, unspecified part of lung J18.9 [place] [address] [address] Jun, Bronchospasm with bronchitis, acute J20.9 [place] [address] [address] May, Acute non-recurrent frontal sinusitis J01.10 [place] [address] [address] May, Flat foot [pes planus] (acquired), left foot M21.42 ; Flat foot [pes planus] (acquired), right foot M21.41 and Neuropathy G62.9 [place] [address] [address] Apr, Chronic tension-type headache, intractable G44.221 ; Right lower quadrant abdominal pain R10.31 ; Cervicalgia M54.2 ; Acute gastritis without hemorrhage, unspecified gastritis type K29.00 and Hypertension I10 [address] [place] [address] [address] Mar, Depression F32.9 and Anxiety disorder, unspecified F41.9 [place] [id number] [place] [address] Feb, Depressive disorder F32.9 and Anxiety disorder, unspecified F41.9 [place] [id number] [place] [address] Jan, Dysuria R30.0 ; Lower abdominal pain R10.30 ; Acute bilateral low back pain without sciatica M54.5 ; Nausea and vomiting, unspecified intactability, vomiting of unspecified type R11.2 ; Pain in right foot M79.671 and Pain of left foot M79.672 [place] [id number] [place] [address] Dec, Urinary tract infection, site not specified N39.0 [facility] [address] [address] Dec, [facility] [id number] [place] [address] Nov, [facility] [id number] [place] [address] Nov, Dysuria R30.0 [facility] [id number] [place] [address] Nov, Dysuria R30.0 and Acute cystitis with hematuria N30.01 [facility] [id number] [place] [address] October, Nausea R11.0 [facility] [id number] [place] [address] October, Thyroid nodule E04.1 ; Carpal tunnel syndrome, left upper limb G56.02 ; Carpal tunnel syndrome, right upper limb G56.01 and Constipation, unspecified constipation type K59.00 [facility] [id number] [place] [address] October, [facility] [address], [place] [address] October, Thyroid nodule E04.1 [facility] [address] [place] [address] October, Cold thyroid nodule E04.1 [facility] [address] [address] October, [facility] [id number] [place] [address] Sep, Thyroid nodule E04.1 [facility] [address], [place] [address] Sep, Thyroid nodule E04.1 [facility] [id number] [place] [address] Sep, Thyroid nodule E04.1 ; Hypertension I10 ; Esophageal reflux K21.9 and Hyperlipidemia, unspecified E78.5 [place] [address] [address] 14 Aug, 2015 Other chronic pain G89.29 ; Sinusitis J32.9 and Hypertension I10 [place] [address] [address] Jul, [place] [address] [address] 15 Jul, 2015 [place] [address] [address] 10 Jul, 2015 Insomnia G47.00 and Arthralgia M25.50 [place] [address] [address] 10 Jul, 2015 Depressive disorder F32.9 and Anxiety disorder, unspecified F41.9 [place] [address] [address] May, Right-sided low back pain without sciatica M54.5 and Depression F32.9 [place] [id number] [place] [address] Apr, Hematuria R31.9 [place] [address] [address] Mar, Other chronic pain G89.29 [place] [address] [address] Mar, Other chronic pain G89.29 [place] [address] [address] Feb, [place] [address] [address] 22 Feb, 2015 Other chronic pain 338.29 ; Dysuria 788.1 ; UTI (urinary tract infection) 599.0 ; Insomnia 780.52 ; Hot flashes 627.[address] [facility] [address], [place] [address] Feb, Dysuria [address] [facility] [address], [place] [address] Feb, [facility] [id number] [place] [address] Jan, [facility] [address] [place] [address] Jan, [facility] [id number] [place] [address] Jan, Fibromyalgia 729.1 ; Hypertension 401.9 ; Dysthymia 300.[address] [facility] [id number] [address] Dec, [facility] [address], [place] [address] Dec, [facility] [address] [place] [address] Dec, [facility] [address] [address] Nov, Other chronic pain 338.29 [facility] [address], [place] [address] October, [facility] [address], [place] [address] October, [facility] [address] [address] Sep, [facility] [address] [address] Sep, [facility] [id number] [address] Aug, [facility] [place] [facility] [address] [id number] [place] [address] Aug, [facility] [place] [facility] [address] [id number] [place] [address] Aug, [facility] [place] [facility] [address] [id number] [place] [address] Aug, [facility] [place] [facility] [address] [id number] [place] [address] Aug, [facility] [place] [facility] [address] [id number] [place] [address] Aug, [facility] [place] [facility] [address] [id number] [place] [address] Aug, [facility] [place] [facility] [address] [id number] [place] [address] Aug, [facility] [place] [facility] [address] [id number] [place] [address] Aug, [facility] [place] [facility] [address] [id number] [place] [address] Aug, [facility] [place] [facility] [address] [id number] [place] [address] Aug, [facility] [place] [facility] [address] [id number] [place] [address] Aug, [facility] [place] [facility] [address] [id number] [place] [address] Aug, [facility] [place] [facility] [address] [id number] [place] [address] Aug, [facility] [place] [facility] [address] [id number] [place] [address] Jul, [facility] [place] [facility] [address] [id number] [place] [address] Jul, [facility] [place] [facility] [address] [id number] [place] [address] Jul, [facility] [place] [facility] [address] [id number] [place] [address] Jul, [facility] [place] [facility] [address] [id number] [place] [address] Jul, [facility] [place] [facility] [address] [id number] [place] [address] Jul, [facility] [place] [facility] [address] [id number] [place] [address] Jun, [facility] [place] [facility] [address] [id number] [place] [address] Jun, [facility] [place] [facility] [address] [id number] [place] [address] Jun, [facility] [place] [facility] [address] [id number] [place] [address] Jun, [facility] [place] [facility] [address] [id number] [place] [address] May, [facility] [place] [facility] [address] [id number] [place] [address] May, [facility] [place] [facility] [address] [id number] [place] [address] May, [facility] [place] [facility] [address] [id number] [place] [address] May, [facility] [place] [facility] [address] [id number] [place] [address] May, [facility] [place] [facility] [address] [id number] [place] [address] May, [facility] [place] [facility] [address] [id number] [place] [address] May, [facility] [place] [facility] [address] [id number] [address] May, [facility] [place] [facility] [address] [id number] [place] [address] May, [facility] [place] [facility] [address] [id number] [place] [address] May, [facility] [place] [facility] [address] [id number] [place] [address] Apr, [facility] [place] [facility] [address] [id number] [place] [address] Apr, [facility] [place] [facility] [address] [id number] [place] [address] Apr, [facility] [place] [facility] [address] [id number] [place] [address] Apr, [facility] [place] [facility] [address] [id number] [place] [address] Apr, [facility] [place] [facility] [address] [id number] [place] [address] Apr, [facility] [place] [facility] [address] [id number] [place] [address] Apr, [facility] [place] [facility] [address] [id number] [place] [address] Apr, [facility] [place] [facility] [address] [id number], [place] [address] Apr, [facility] [place] [facility] [address] [id number], [place] [address] Mar, [facility] [place] [facility] [address] [id number] [place] [address] Mar, [facility] [place] [facility] [address] [id number] [place] [address] Mar, [facility] [place] [facility] [address] [id number] [place] [address] Mar, [facility] [place] [facility] [address] [id number] [place] [address] 08 Mar, 2013 [facility] [place] [facility] [address] [id number] [place] [address] 08 Mar, 2013 [facility] [place] [facility] [address] [id number] [place] [address] Mar, 2013 [facility] [place] [facility] [address] [id number] [place] [address] 08 Mar, 2013 [facility] [place] [facility] [address] [id number] [place] [address] 30 Sep, 2013 [facility] [place] [facility] [address] [id number] [place] [address] 30 Sep, 2013 [facility] [place] [facility] [address] [id number] [place] [address] 24 Feb, 2013 [facility] [place] [facility] [address] [id number] [place] [address] 24 Feb, 2013 [facility] [place] [facility] [address] [id number] [place] [address] 22 Feb, 2013 [facility] [place] [facility] [address] [id number] [place] [address] 22 Feb, 2013 [facility] [place] [facility] [address] [id number] [place] [address] 10 Feb, 2013 [facility] [place] [facility] [address] [id number] [place] [address] 10 Feb, 2013 [facility] [place] [facility] [address] [id number] [place] [address] 03 Sep, 2013 [facility] [place] [facility] [address] [id number] [place] [address] 03 Sep, 2013 [facility] [place] [facility] [address] [id number] [place] [address] 03 Sep, 2013 [facility] [place] [facility] [address] [id number] [place] [address] Feb, [facility] [place] [facility] [address] [id number] [place] [address] Feb, [facility] [place] [facility] [address] [id number] [place] [address] Feb, [facility] [place] [facility] [address] [id number] [place] [address] Jan, [facility] [place] [facility] [address] [id number] [place] [address] Jan, [facility] [place] [facility] [address] [id number] [place] [address] Dec, [facility] [place] [facility] [address] [id number] [place] [address] Dec, [facility] [place] [facility] [address] [id number] [place] [address] Dec, [facility] [place] [facility] [address] [id number] [place] [address] Dec, [facility] [place] [facility] [address] [id number] [place] [id number] Dec, [facility] [place] [facility] [address] [id number] [place] [address] Dec, [facility] [place] [facility] [address] [id number] [place] [address] Dec, [facility] [place] [facility] [address] [id number] [place] [address] Dec, [facility] [place] [facility] [address] [id number] [place] [address] Dec, [facility] [place] [facility] [address] [id number] [place] [address] Dec, [facility] [place] [facility] [address] [id number] [place] [address] Dec, [facility] [place] [facility] [address] [id number] [place] [address] Dec, 2013 [facility] [place] [facility] [address] [id number] [place] [address] Dec, 2013 [facility] [place] [facility] [address] [id number] [place] [address] Dec, 2013 [facility] [place] [facility] [address] [id number] [place] [address] Dec, 2013 [facility] [place] [facility] [address] [id number] [place] [address] Dec, 2013 [facility] [place] [facility] [address] [id number] [place] [address] Dec, [facility] [place] [facility] [address] [id number] [place] [address] Dec, [facility] [place] [facility] [address] [id number] [place] [address] Dec, [facility] [place] [facility] [address] [id number] [place] [address] Nov, [facility] [place] [facility] [address] [id number] [place] [address] Nov, [facility] [place] [facility] [address] [id number] [place] [address] Nov, [facility] [place] [facility] [address] [id number] [place] [address] Nov, [facility] [place] [facility] [address] [id number] [place] [address] Nov, [facility] [place] [facility] [address] [id number] [place] [address] Nov, [facility] [place] [facility] [address] [id number] [place] [address] Nov, [facility] [place] [facility] [address] [id number] [place] [address] Nov, [facility] [place] [facility] [address] [id number] [place] [address] Nov, [facility] [place] [facility] [address] [id number] [place] [address] October, [facility] [place] [facility] [address] [id number] [place] [address] October, [facility] [place] [facility] [address] [id number] [place] [address] October, [facility] [place] [facility] [address] [id number] [place] [address] October, [facility] [place] [facility] [address] [id number] [place] [address] October, [facility] [place] [facility] [address] [id number] [place] [address] October, [facility] [place] [facility] [address] [id number] [place] [address] October, [facility] [place] [facility] [address] [id number] [place] [address] October, [facility] [place] [facility] [address] [id number] [place] [address] Sep, [facility] [place] [facility] [address] [id number] [place] [address] Sep, [facility] [place] [facility] [address] [id number] [place] [address] Sep, [facility] [place] [facility] [address] [id number] [place] [address] Sep, [facility] [place] [facility] [address] [id number] [place] [address] Sep, [facility] [place] [facility] [address] [id number] [place] [address] Sep, [facility] [place] [facility] [address] [id number] [place] [address] Sep, [facility] [place] [facility] [address] [id number] [place] [address] Aug, [facility] [place] [facility] [address] [id number] [place] [address] Aug, [facility] [place] [facility] [address] [id number] [place] [address] Aug, [facility] [place] [facility] [address] [id number] [place] [address] Aug, [facility] [place] [facility] [address] [id number] [place] [address] Aug, [facility] [place] [facility] [address] [id number] [place] [address] Aug, [facility] [place] [facility] [address] [id number] [place] [address] Jul, [facility] [place] [facility] [address] [id number] [place] [address] Jul, [facility] [place] [facility] [address] [id number] [place] [address] Jul, [facility] [place] [facility] [address] [id number] [place] [address] Jul, [facility] [place] [facility] [address] [id number] [place] [address] Jul, [facility] [place] [facility] [address] [id number] [place] [address] Jul, [facility] [place] [facility] [address] [id number] [place] [address] Jun, [facility] [place] [facility] [address] [id number] [place] [address] Jun, [facility] [place] [facility] [address] [id number] [place] [address] Jun, [facility] [place] [facility] [address] [id number] [place] [address] Jun, [facility] [address] [id number] [place] [address] Jun, [facility] [address] [id number] [place] [address] Jun, [facility] [address] [id number] [place] [address] Jun, [facility] [address] [id number] [place] [address] Jun, [facility] [address] [id number] [place] [address] Jun, [facility] [address] [id number] [place] [address] Jun, [facility] [address] [id number] [place] [address] Jun, [facility] [address] [id number] [place] [address] Jun, [facility] [address] [id number] [place] [address] Jun, [facility] [address] [id number] [place] [address] May, [facility] [address] [id number] [place] [address] May, [facility] [address] [id number] [place] [address] May, [facility] [place] [facility] [address] [id number] [place] [address] May, [facility] [address] [id number] [place] [address] May, [facility] [address] [id number] [place] [address] May, [facility] [address] [id number] [place] [address] 14 May, 2013 [facility] [place] [facility] [address] [id number] [place] [address] 12 May, 2013 [facility] [place] [facility] [address] [id number] [place] [address] 12 May, 2013 [facility] [place] [facility] [address] [id number] [place] [address] May, [facility] [place] [facility] [address] [id number] [place] [address] 11 May, 2013 [facility] [place] [facility] [address] [id number] [place] [address] 10 May, 2013 [facility] [place] [facility] [address] [id number] [place] [address] May, [facility] [place] [facility] [address] [id number] [place] [address] May, [facility] [place] [facility] [address] [id number] [place] [address] May, [facility] [place] [facility] [address] [id number] [place] [address] 08 May, 2013 [facility] [place] [facility] [address] [id number] [place] [address] 07 May, 2013 [facility] [place] [facility] [address] [id number], [place] [address] 06 May, 2013 [facility] [place] [facility] [address] [id number] [place] [address] May, [facility] [place] [facility] [address] [id number] [place] [address] May, [facility] [place] [facility] [address] [id number] [place] [address] May, [facility] [place] [facility] [address] [id number] [place] [address] Apr, [facility] [address] [id number] [place] [address] Apr, [facility] [place] [facility] [address] [id number] [place] [address] Apr, [facility] [place] [facility] [address] [id number] [place] [address] Apr, [facility] [place] [facility] [address] [id number] [place] [address] Mar, [facility] [place] [facility] [address] [id number] [place] [address] 23 Feb, 2013 [facility] [place] [facility] [address] [id number] [place] [address] 16 Feb, 2013 [facility] [address] [id number] [place] [address] 13 Feb, 2013 [facility] [place] [facility] [address] [id number] [place] [address] 10 Feb, 2013 [facility] [place] [facility] [address] [id number] [place] [address] 09 Feb, 2013 [facility] [place] [facility] [address] [id number] [place] [address] 09 Feb, 2013 [facility] [place] [facility] [address] [id number] [place] [address] Jan, [facility] [place] [facility] [address] [id number] [place] [address] Jan, [facility] [place] [facility] [address] [id number] [place] [address] Jan, [facility] [place] [facility] [address] [id number] [place] [address] Dec, [facility] [place] [facility] [address] [id number] [place] [address] Dec, [facility] [place] [facility] [address] [id number] [place] [address] 17 Dec, 2012 [facility] [place] [facility] [address] [id number] [place] [address] 15 Dec, 2012 [facility] [place] [facility] [address] [id number] [place] [address] Dec, [facility] [place] [facility] [address] [id number] [place] [address] Nov, [facility] [place] [facility] [address] [id number] [place] [address] Nov, [facility] [place] [facility] [address] [id number] [place] [address] Nov, [facility] [place] [facility] [address] [id number] [place] [address] Nov, [facility] [place] [facility] [address] [id number] [place] [address] Nov, [facility] [place] [facility] [address] [id number] [place] [address] Nov, [facility] [place] [facility] [address] [id number] [place] [address] Nov, [facility] [place] [facility] [address] [id number] [place] [address] Nov, [facility] [place] [facility] [address] [id number] [place] [address] Nov, [facility] [place] [facility] [address] [id number] [place] [address] Nov, [facility] [place] [facility] [address] [id number] [place] [address] October, [facility] [place] [facility] [address] [id number] [place] [address] October, [facility] [place] [facility] [address] [id number] [place] [address] Sep, [facility] [address] [id number] [place] [address] Sep, [facility] [place] [facility] [address] [id number] [place] [address] Sep, [facility] [address] [facility] [id number] [place] [address] Sep, [facility] [place] [facility] [address] [id number] [place] [address] Sep, [facility] [address] [id number] [place] [address] Aug, [facility] [place] [facility] [address] [id number] [place] [address] Aug, [facility] [address] [id number] [place] [address] Jul, [facility] [place] [facility] [address] [id number] [place] [address] Jul, [facility] [address] [id number] [place] [address] Jun, [facility] [address] [id number] [place] [address] Jun, [facility] [address] [id number], [place] [address] May, [facility] [place] [facility] [address] [id number], [place] [address] May, [facility] [place] [facility] [address] [id number] [place] [address] May, [facility] [place] [facility] [address] [facility] [id number] [place] [address] May, [facility] [place] [facility] [address] [facility] [id number] [place] [address] Apr, [facility] [place] [facility] [address] [id number] [place] [address] 27 Apr, 2012 [facility] [place] [facility] [address] [id number] [place] [address] 23 Apr, 2012 [facility] [place] [facility] [address] [id number] [place] [address] Apr, [facility] [place] [facility] [address] [id number] [place] [address] 20 Apr, 2012 [facility] [place] [facility] [address] [id number] [place] [address] 14 Apr, 2012 [facility] [place] [facility] [address] [id number] [place] [address], [place] [address] 14 Apr, 2012 [facility] [place] [facility] [address] [id number] [place] [address] Apr, [facility] [place] [facility] [address] [facility] [id number] [place] [address] Apr, [facility] [place] [facility] [address] [id number] [place] [address] Mar, [facility] [place] [facility] [address] [facility] [id number] [place] [address] Mar, [facility] [place] [facility] [address] [facility] [id number] [place] [address] Feb, [facility] [place] [facility] [address] [id number] [place] [address] Jan, [facility] [place] [facility] [address] [id number] [place] [address] Jan, [facility] [place] [facility] [address] [id number] [place] [address] Dec, [facility] [place] [facility] [address] [id number] [place] [address] Nov, [facility] [place] [facility] [address] [facility] [id number] [place] [address] Nov, [facility] [place] [facility] [address] [id number] [place] [address] October, [facility] [place] [facility] [address] [id number] [place] [address] October, [facility] [place] [facility] [address] [id number] [place] [address] Sep, [facility] [place] [facility] [address] [id number] [place] [address] Sep, [facility] [place] [facility] [address] [id number] [place] [address] May, [facility] [place] [facility] [address] [id number] [place] [address] Apr, [facility] [place] [facility] [address] [id number] [place] [address] Apr, [facility] [place] [facility] [address] [id number], [place] [address] Apr, [facility] [place] [facility] [address] [id number] [place] [address] Apr, [facility] [place] [facility] [address] [id number], [place] [address] Apr, [facility] [place] [facility] [address] [id number], [place] [address] Apr, [facility] [place] [facility] [address] [id number], [place] [address] Apr, [facility] [place] [facility] [address] [id number], [place] [address] Apr, [facility] [place] [facility] [address] [id number], [place] [address] Mar, [facility] [place] [facility] [address] [id number], [place] [address] Mar, [facility] [place] [facility] [address] [id number], [place] [address] Mar, [facility] [address] [facility] [id number] [place] [address] Mar, [facility] [address] [facility] [id number], [place] [address] Mar, [facility] [address] [facility] [id number] [place] [address] Mar, IMMUNIZATIONS No Known Immunizations SOCIAL HISTORY Never Assessed REASON FOR [place]IS[place] [facility] [place] [...] Stomach surgeryx3 Hospitalization History Mental floor at [facility]
--- OUTSIDE RECORDS SUMMARY | 2018-10-27 16:07 | XMS REPORT ---
Author Author WINSTON Contreras Organization [facility] Address [address] [place] [address] Phone Unavailable Care Team Providers Care Java [employer] Name Role Phone WINSTON Contreras Unavailable Unavailable PROBLEMS Type Condition ICD9-CM Code XZH81-VN Code Onset Dates Condition Status SNOMED Code Problem Presbyopia H52.4 Active 31919082 Problem Unspecified open-angle glaucoma, stage unspecified H40.10X0 Feb, Active 00781836 Problem Nondependent 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 Active 593897259 Problem Unspecified epilepsy without mention of intractable epilepsy G40.909 Active 24124251 Problem Chronic tension-type headache, intractable G44.221 Active 994716855 Problem Other chronic pain G89.29 Active 444160435 Problem Goiter E04.9 Active 0140242 Problem Hypertension I10 Active 00513537 Problem Multinodular goiter E04.2 Active 039439337 Problem Cough R05 Active 54058834 Problem Acquired hypothyroidism E03.9 Active 710916568 Problem Abnormal laboratory test R89.9 Active 220575715 Problem Urge incontinence of urine N39.41 Active 68627656 Problem Esophageal reflux K21.9 Active 086020455 Problem Rheumatoid arthritis M06.9 Active 55490831 Problem Hyperlipidemia, unspecified E78.5 Active 54037325 Problem Chronic obstructive pulmonary disease, unspecified COPD type J44.9 Active 71419312 Problem Carpal tunnel syndrome of left wrist G56.02 Active [id number] Problem BMI 40.0-44.9, adult Z68.41 Active 281570325 Problem Reactive airway disease without complication, unspecified asthma severity, unspecified whether persistent J45.909 Active 714614427382 Problem Right-sided low back pain without sciatica M54.5 Active 610113352 Problem Arthralgia M25.50 Active 36459375 Problem Depressive disorder F32.9 Active 45422775 Problem Depression F32.9 Active 89966161 Problem Thyroid nodule E04.1 Active 549933002 Problem Neuropathy G62.9 Active 993914736 Problem Insomnia G47.00 Active 834788121 Problem Anxiety disorder, unspecified F41.9 Active 310048114 ALLERGIES Substance Reaction Event Type Date Status Penicillin V Potassium anaphylaxis Drug Allergy Mar, Active ENCOUNTERS Encounter Location Date Diagnosis [facility] [id number] [place] [address] Apr, Abnormal laboratory test R89.9 [facility] [id number] [place] [address] Apr, Abnormal laboratory test R89.9 [facility] [id number] [place] [address] Apr, Abnormal laboratory test R89.9 [facility] [id number] [place] [address] Apr, [place] [address] [address] Apr, [facility] [id number] [place] [address] Apr, Nonintractable episodic headache, unspecified headache type R51 ; Urge incontinence of urine N39.41 ; BMI 40.0-44.9, adult Z68.41 ; Myalgia M79.10 and Acute cystitis without hematuria N30.00 [place] [id number] [place] [address] Mar, Nasal congestion R09.81 ; Low back pain M54.5 ; Reactive airway disease without complication, unspecified asthma severity, unspecified whether persistent J45.909 ; Other chronic pain G89.29 ; Acute cystitis with hematuria N30.01 and BMI 40.0-44.9, adult Z68.41 [facility] [id number] [place] [address] Mar, Acute cystitis with hematuria N30.01 [facility] [id number] [place] [address] Mar, BMI 40.0-44.9, adult Z68.41 ; Acute cystitis with hematuria N30.01 ; Acute bilateral low back pain without sciatica M54.5 and Nausea R11.0 [place] [id number] [place] [address] Mar, Hypertension I10 ; Acquired hypothyroidism E03.9 ; Esophageal reflux K21.9 ; Chronic obstructive pulmonary disease, unspecified COPD type J44.9 and BMI 40.0-44.9, adult Z68.41 [place] [address] [address] Mar, Hypertension I10 [address] [address] Nov, Hyperlipidemia, unspecified E78.[address] [address] October, Chest pain, unspecified type R07.9 and Acquired hypothyroidism E03.9 [place] [id number] [place] [address] October, Chest pain, unspecified type R07.9 ; Family history of coronary artery disease Z82.49 ; Carpal tunnel syndrome of left wrist G56.02 ; Hypertension I10 ; Esophageal reflux K21.9 ; Arthralgia M25.50 ; Acquired hypothyroidism E03.9 ; Cough R05 ; Nausea R11.0 ; Weight gain R63.5 and BMI 45.0-49.9, adult Z68.42 [place] [id number] [place] [address] Jun, Acquired hypothyroidism E03.9 and Cough R05 [address] [address] May, [address] [address] Feb, Tarsal tunnel syndrome of both lower extremities G57.53 and Neuropathy G62.9 [place] [id number] [place] [address] Dec, Pleuritis R09.1 [place] [address] [address] Nov, [place] [address] [address] October, Arthralgia, unspecified joint M25.50 and Allergy, initial encounter T78.40XA [place] [address] [address] October, [place] [address] [address] October, Acute recurrent maxillary sinusitis J01.01 and Arthralgia M25.50 [place] [address] [address] Sep, Pharyngitis due to other organism J02.8 [place] [id number] [place] [address] Aug, Acute nasopharyngitis J00 [place] [id number] [place] [address] Aug, Multinodular goiter E04.2 [place] [id number] [place] [address] Aug, Thyroid nodule E04.1 [place] [id number] [place] [address] Jul, Tarsal tunnel syndrome of both lower extremities G57.53 [place] [address] [address] Jun, Pneumonia due to infectious organism, unspecified laterality, unspecified part of lung J18.9 [place] [id number] [place] [address] 06 Nick, 2017 Bronchospasm with bronchitis, acute J20.9 [place] [id number] [place] [address] May, Acute non-recurrent frontal sinusitis J01.10 [place] [id number] [place] [address] May, Flat foot [pes planus] (acquired), left foot M21.42 ; Flat foot [pes planus] (acquired), right foot M21.41 and Neuropathy G62.9 [place] [id number] [place] [address] Apr, Chronic tension-type headache, intractable G44.221 ; Right lower quadrant abdominal pain R10.31 ; Cervicalgia M54.2 ; Acute gastritis without hemorrhage, unspecified gastritis type K29.00 and Hypertension I10 [place] [id number] [place] [address] Mar, Depression F32.9 and Anxiety disorder, unspecified F41.9 [place] [id number] [place] [address] Feb, Depressive disorder F32.9 and Anxiety disorder, unspecified F41.9 [place] [id number] [place] [address] Jan, Dysuria R30.0 ; Lower abdominal pain R10.30 ; Acute bilateral low back pain without sciatica M54.5 ; Nausea and vomiting, unspecified intactability, vomiting of unspecified type R11.2 ; Pain in right foot M79.671 and Pain of left foot M79.672 [place] [id number] [place] [address] Dec, Urinary tract infection, site not specified N39.0 [place] [id number] [place] [address] Dec, [place] [id number] [place] [address] Nov, [place] [id number] [place] [address] Nov, Dysuria R30.0 [place] [id number] [place] [address] Nov, Dysuria R30.0 and Acute cystitis with hematuria N30.01 [place] [id number] [place] [address] October, Nausea R11.0 [place] [id number] [place] [address] October, Thyroid nodule E04.1 ; Carpal tunnel syndrome, left upper limb G56.02 ; Carpal tunnel syndrome, right upper limb G56.01 and Constipation, unspecified constipation type K59.00 [place] [id number] [place] [address] October, [place] [id number] [place] [address] October, Thyroid nodule E04.1 [place] [id number] [place] [address] October, Cold thyroid nodule E04.1 [place] [id number] [place] [address] October, [place] [id number] [place] [address] Sep, Thyroid nodule E04.1 [place] [id number] [place] [address] Sep, Thyroid nodule E04.1 [place] [id number] [place] [address] Sep, Thyroid nodule E04.1 ; Hypertension I10 ; Esophageal reflux K21.9 and Hyperlipidemia, unspecified E78.5 [place] [id number] [place] [address] Aug, Other chronic pain G89.29 ; Sinusitis J32.9 and Hypertension I10 [place] [id number] [place] [address] 29 Jul, 2015 [facility] [address] [address] 15 Jul, 2015 [facility] [address] [address] 10 Jul, 2015 Insomnia G47.00 and Arthralgia M25.50 [place] [address] [address] 10 Jul, 2015 Depressive disorder F32.9 and Anxiety disorder, unspecified F41.9 [place] [address] [address] May, Right-sided low back pain without sciatica M54.5 and Depression F32.9 [place] [address] [address] Apr, Hematuria R31.9 [place] [address] [address] Mar, Other chronic pain G89.29 [place] [id number] [place] [address] Mar, Other chronic pain G89.29 [place] [id number] [place] [address] 28 Feb, 2015 [place] [id number] [place] [address] 22 Feb, 2015 Other chronic pain 338.29 ; Dysuria 788.1 ; UTI (urinary tract infection) 599.0 ; Insomnia 780.52 ; Hot flashes 627.2 and Hypertension 401.9 [place] [id number] [place] [address] 14 Feb, 2015 Dysuria 788.1 [place] [id number] [address] Feb, [facility] [address] [address] Jan, [facility] [address], [place] [address] Jan, [facility] [id number] [place] [address] Jan, Fibromyalgia 729.1 ; Hypertension 401.9 ; Dysthymia 300.4 and Hot flashes 627.2 [facility] [id number] [place] [address], [place] [address] Dec, [facility] [id number] [address] Dec, [facility] [address], [place] [address] Dec, [facility] [address] [address] Nov, Other chronic pain 338.29 [facility] [address] [place] [address] October, [facility] [address], [place] [address] October, [facility] [address], [place] [address] Sep, [facility] [id number] [address] Sep, [facility] [address], [place] [address] Aug, [facility] [id number] [place] [address] Aug, [facility] [id number] [address] Aug, [facility] [place] [facility] [address] [id number] [place] [address] Aug, [facility] [place] [facility] [address] [id number] [place] [address] Aug, [facility] [place] [facility] [address] [id number] [place] [address] Aug, [facility] [place] [facility] [address] [id number] [place] [address] Aug, [facility] [place] [facility] [address] [id number] [place] [address] Aug, [facility] [place] [facility] [address] [id number] [place] [address] Aug, [facility] [place] [facility] [address] [id number] [place] [address] Aug, [facility] [place] [facility] [address] [id number] [place] [address] Aug, [facility] [place] [facility] [address] [id number] [place] [address] Aug, [facility] [place] [facility] [address] [id number] [place] [address] Aug, [facility] [place] [facility] [address] [id number] [place] [address] Aug, [facility] [place] [facility] [address] [id number] [address] Jul, [facility] [place] [facility] [address] [id number] [place] [address] Jul, [facility] [place] [facility] [address] [id number] [place] [address] Jul, [facility] [place] [facility] [address] [id number] [place] [address] Jul, [facility] [place] [facility] [address] [id number] [place] [address] 12 Jul, 2014 [facility] [address] [id number] [place] [address] 12 Jul, 2014 [facility] [address] [id number] [place] [address] 15 Jun, 2014 [facility] [address] [id number] [place] [address] Jun, [facility] [address] [id number] [place] [address] Jun, [facility] [address] [id number] [place] [address] Jun, [facility] [address] [id number] [place] [address] May, [facility] [address] [id number] [place] [address] May, [facility] [address] [id number] [place] [address] May, [facility] [address] [id number] [place] [address] May, [facility] [address] [id number] [place] [address] May, [facility] [address] [id number] [place] [address] May, [facility] [address] [id number] [place] [address] May, [facility] [place] [facility] [address] [id number] [place] [address] May, [facility] [place] [facility] [address] [id number] [place] [address] May, [facility] [address] [id number] [place] [address] May, [facility] [place] [facility] [address] [id number] [place] [address] Apr, [facility] [place] [facility] [address] [id number] [place] [address] Apr, [facility] [place] [facility] [address] [id number] [place] [address] Apr, [facility] [place] [facility] [address] [id number] [place] [address] Apr, [facility] [place] [facility] [address] [id number] [place] [address] Apr, [facility] [place] [facility] [address] [id number] [place] [address] Apr, [facility] [place] [facility] [address] [id number] [place] [address] Apr, [facility] [place] [facility] [address] [id number] [place] [address] Apr, [facility] [place] [facility] [address] [id number] [place] [address] Apr, [facility] [place] [facility] [address] [id number], [place] [address] Mar, [facility] [place] [facility] [address] [id number], [place] [address] Mar, [facility] [place] [facility] [address] [id number], [place] [address] Mar, [facility] [place] [facility] [address] [id number] [place] [address] Mar, [facility] [place] [facility] [address] [id number], [place] [address] Mar, [facility] [place] [facility] [address] [id number], [place] [address] Mar, [facility] [place] [facility] [address] [id number], [place] [address] 08 Mar, 2013 [facility] [place] [facility] [address] [id number] [place] [address] 08 Mar, 2013 [facility] [place] [facility] [address] [id number] [place] [address] 30 Feb, 2013 [facility] [place] [facility] [address] [id number] [place] [address] 30 Sep, 2013 [facility] [place] [facility] [address] [id number] [place] [address] 24 Sep, 2013 [facility] [place] [facility] [address] [id number] [place] [address] 24 Feb, 2013 [facility] [place] [facility] [address] [id number] [place] [address] 22 Feb, 2013 [facility] [place] [facility] [address] [id number] [place] [address] 22 Feb, 2013 [facility] [place] [facility] [address] [id number] [place] [address] 10 Feb, 2013 [facility] [place] [facility] [address] [id number] [place] [address] 10 Feb, 2013 [facility] [place] [facility] [address] [id number] [place] [address] 03 Sep, 2013 [facility] [place] [facility] [address] [id number] [place] [address] 03 Sep, 2013 [facility] [place] [facility] [address] [id number], [place] [address] 03 Sep, 2013 [facility] [place] [facility] [address] [id number] [place] [address] 03 Sep, 2013 [facility] [place] [facility] [address] [id number] [place] [address] 03 Sep, 2013 [facility] [place] [facility] [address] [id number] [place] [address] 03 Sep, 2013 [facility] [place] [facility] [address] [id number] [place] [address] Jan, [facility] [place] [facility] [address] [id number] [place] [address] Jan, [facility] [place] [facility] [address] [id number] [place] [address] Dec, [facility] [place] [facility] [address] [id number] [place] [address] Dec, [facility] [place] [facility] [address] [id number] [place] [address] Dec, [facility] [place] [facility] [address] [id number] [place] [address] Dec, [facility] [place] [facility] [address] [id number] [place] [id number] Dec, [facility] [place] [facility] [address] [id number] [place] [address] Dec, [facility] [place] [facility] [address] [id number] [place] [address] Dec, [facility] [place] [facility] [address] [id number] [place] [address] Dec, [facility] [place] [facility] [address] [id number] [place] [address] Dec, [facility] [place] [facility] [address] [id number] [facility] [place] [address] Dec, [facility] [place] [facility] [address] [id number] [place] [address] Dec, [facility] [place] [facility] [address] [id number] [place] [address] Dec, [facility] [place] [facility] [address] [id number] [place] [address] Dec, [facility] [place] [facility] [address] [id number] [place] [address] Dec, [facility] [place] [facility] [address] [id number] [place] [address] Dec, [facility] [place] [facility] [address] [id number] [place] [address] Dec, [facility] [place] [facility] [address] [id number] [place] [address] Dec, [facility] [place] [facility] [address] [id number] [place] [address] Dec, [facility] [place] [facility] [address] [id number] [place] [address] Dec, [facility] [place] [facility] [address] [id number] [place] [address] Nov, [facility] [place] [facility] [address] [id number] [place] [address] Nov, [facility] [place] [facility] [address] [id number] [place] [address] Nov, [facility] [place] [facility] [address] [id number] [place] [address] Nov, [facility] [place] [facility] [address] [id number] [place] [address] Nov, [facility] [place] [facility] [address] [id number] [place] [address] Nov, [facility] [place] [facility] [address] [id number], [place] [address] Nov, [facility] [place] [facility] [address] [id number] [place] [address] Nov, [facility] [place] [facility] [address] [id number] [place] [address] Nov, [facility] [place] [facility] [address] [id number] [place] [address] October, [facility] [place] [facility] [address] [id number] [place] [address] October, [facility] [address] [id number] [place] [address] October, [facility] [place] [facility] [address] [id number] [place] [address] October, [facility] [place] [facility] [address] [id number] [place] [address] October, [facility] [place] [facility] [address] [id number] [place] [address] October, [facility] [place] [facility] [address] [id number] [place] [address] October, [facility] [place] [facility] [address] [id number] [place] [address] October, [facility] [place] [facility] [address] [id number] [place] [address] Sep, [facility] [place] [facility] [address] [id number] [place] [address] Sep, [facility] [place] [facility] [address] [id number] [place] [address] Sep, [facility] [place] [facility] [address] [id number] [place] [address] Sep, [facility] [place] [facility] [address] [id number] [place] [address] Sep, [facility] [place] [facility] [address] [id number] [place] [address] Sep, [facility] [place] [facility] [address] [id number] [place] [address] Sep, [facility] [place] [facility] [address] [id number] [place] [address] Aug, [facility] [place] [facility] [address] [id number] [place] [address] Aug, [facility] [place] [facility] [address] [id number] [place] [address] Aug, [facility] [place] [facility] [address] [id number] [place] [address] Aug, [facility] [place] [facility] [address] [id number] [place] [address] Aug, [facility] [place] [facility] [address] [id number] [place] [address] Aug, [facility] [place] [facility] [address] [id number] [place] [address] Jul, [facility] [place] [facility] [address] [id number] [place] [address] Jul, [facility] [place] [facility] [address] [id number] [place] [address] Jul, [facility] [place] [facility] [address] [id number] [place] [address] Jul, [facility] [place] [facility] [address] [id number] [place] [address] Jul, [facility] [place] [facility] [address] [id number] [place] [address] Jul, [facility] [place] [facility] [address] [id number] [place] [address] Jun, [facility] [place] [facility] [address] [id number] [place] [address] Jun, [facility] [place] [facility] [address] [id number] [place] [address] Jun, [facility] [place] [facility] [address] [id number] [place] [address] Jun, [facility] [place] [facility] [address] [id number] [place] [address] Jun, [facility] [place] [facility] [address] [id number] [place] [address] Jun, [facility] [address] [id number] [place] [address] Jun, [facility] [place] [facility] [address] [id number] [place] [address] Jun, [facility] [address] [id number] [place] [address] Jun, [facility] [place] [facility] [address] [id number] [place] [address] Jun, [facility] [address] [id number] [place] [address] Jun, [facility] [place] [facility] [address] [id number] [place] [address] Jun, [facility] [address] [id number] [place] [address] Jun, [facility] [place] [facility] [address] [id number] [place] [address] 30 May, 2013 [facility] [place] [facility] [address] [id number] [place] [address] 30 May, 2013 [facility] [place] [facility] [address] [id number] [place] [address] 30 May, 2013 [facility] [place] [facility] [address] [id number] [place] [address] 30 May, 2013 [facility] [place] [facility] [address] [id number] [place] [address] 26 May, 2013 [facility] [place] [facility] [address] [id number] [place] [address] 14 May, 2013 [facility] [place] [facility] [address] [id number] [place] [address] 14 May, 2013 [facility] [place] [facility] [address] [id number] [place] [address] 12 May, 2013 [facility] [place] [facility] [address] [id number] [place] [address] 12 May, 2013 [facility] [place] [facility] [address] [id number] [place] [address] May, [facility] [place] [facility] [address] [id number] [place] [address] May, [facility] [place] [facility] [address] [id number] [place] [address] May, [facility] [place] [facility] [address] [id number] [place] [address] May, [facility] [place] [facility] [address] [id number] [place] [address] May, [facility] [place] [facility] [address] [id number] [place] [address] May, [facility] [place] [facility] [address] [id number] [place] [address] May, [facility] [place] [facility] [address] [id number] [place] [address] May, [facility] [place] [facility] [address] [id number] [place] [address] May, [facility] [place] [facility] [address] [id number] [place] [address] May, [facility] [place] [facility] [address] [id number] [place] [address] May, [facility] [place] [facility] [address] [id number] [place] [address] May, [facility] [place] [facility] [address] [id number] [place] [address] Apr, [facility] [place] [facility] [address] [id number] [place] [address] Apr, [facility] [place] [facility] [address] [id number] [place] [address] Apr, [facility] [place] [facility] [address] [id number] [place] [address] Apr, [facility] [place] [facility] [address] [id number] [place] [address] Mar, [facility] [place] [facility] [address] [id number] [place] [address] 23 Feb, 2013 [facility] [place] [facility] [address] [id number] [place] [address] 16 Feb, 2013 [facility] [place] [facility] [address] [id number] [place] [address] 13 Feb, 2013 [facility] [place] [facility] [address] [id number] [place] [address] 10 Feb, 2013 [facility] [place] [facility] [address] [id number] [place] [address] Feb, [facility] [place] [facility] [address] [id number] [place] [address] Feb, [facility] [place] [facility] [address] [id number] [place] [address] Jan, [facility] [place] [facility] [address] [id number] [place] [address] Jan, [facility] [place] [facility] [address] [id number] [place] [address] Jan, [facility] [place] [facility] [address] [id number], [place] [address] Dec, [facility] [place] [facility] [address] [id number] [place] [address] Dec, [facility] [place] [facility] [address] [id number] [place] [address] Dec, [facility] [place] [facility] [address] [id number] [place] [address] Dec, [facility] [place] [facility] [address] [id number] [place] [address] Dec, [facility] [address] [id number] [place] [address] Nov, [facility] [place] [facility] [address] [id number] [place] [address] Nov, [facility] [address] [id number] [place] [address] Nov, [facility] [place] [facility] [address] [id number] [place] [address] Nov, [facility] [place] [facility] [address] [id number] [place] [address] Nov, [facility] [place] [facility] [address] [id number] [place] [address] 08 Nov, 2012 [facility] [address] [id number] [place] [address] Nov, [facility] [place] [facility] [address] [id number] [place] [address] Nov, [facility] [place] [facility] [address] [id number] [place] [address] Nov, [facility] [place] [facility] [address] [id number] [place] [address] Nov, [facility] [place] [facility] [address] [id number] [place] [address] October, [facility] [place] [facility] [address] [id number] [place] [address] October, [facility] [place] [facility] [address] [id number] [place] [address] Sep, [facility] [place] [facility] [address] [id number] [place] [address] Sep, [facility] [place] [facility] [address] [id number] [place] [address] Sep, [facility] [place] [facility] [address] [id number] [place] [address] Sep, [facility] [address] [id number] [place] [address] Sep, [facility] [place] [facility] [address] [id number] [place] [address] Aug, [facility] [place] [facility] [address] [id number] [place] [address] Aug, [facility] [address] [id number] [place] [address] Jul, [facility] [place] [facility] [address] [id number] [place] [address] Jul, [facility] [address] [id number] [place] [address] Jun, [facility] [address] [id number] [place] [address] Jun, [facility] [address] [id number] [place] [address] May, [facility] [address] [id number] [place] [address] May, [facility] [address] [id number] [place] [address] May, [facility] [place] [facility] [address] [id number], [place] [address] May, [facility] [place] [facility] [address] [id number] [place] [address] Apr, [facility] [place] [facility] [address] [id number] [place] [address] Apr, [facility] [place] [facility] [address] [id number] [place] [address] Apr, [facility] [place] [facility] [address] [id number], [place] [address] Apr, [facility] [place] [facility] [address] [id number] [place] [address] Apr, [facility] [place] [facility] [address] [id number] [place] [address] Apr, [facility] [place] [facility] [address] [id number] [place] [address] Apr, [facility] [place] [facility] [address] [id number] [place] [address] Apr, [facility] [place] [facility] [address] [id number] [place] [address] Apr, [facility] [place] [facility] [address] [id number] [place] [address] Mar, [facility] [place] [facility] [address] [id number] [place] [address] Mar, [facility] [place] [facility] [address] [id number] [place] [address] Feb, [facility] [place] [facility] [address] [id number] [place] [address] Jan, [facility] [place] [facility] [address] [id number] [place] [address] Jan, [facility] [place] [facility] [address] [id number], [place] [address] Dec, [facility] [place] [facility] [address] [id number], [place] [address] Nov, [facility] [place] [facility] [address] [id number] [place] [address] Nov, [facility] [place] [facility] [address] [id number] [place] [address] October, [facility] [place] [facility] [address] [id number] [place] [address] October, [facility] [place] [facility] [address] [id number] [place] [address] 29 Sep, 2011 [facility] [place] [facility] [address] [id number] [place] [address] Sep, [facility] [place] [facility] [address] [id number] [place] [address] May, [facility] [place] [facility] [address] [id number] [place] [address] Apr, [facility] [place] [facility] [address] [id number] [place] [address] Apr, [facility] [place] [facility] [address] [id number] [place] [address] Apr, [facility] [place] [facility] [address] [id number] [place] [address] Apr, [facility] [place] [facility] [address] [id number] [place] [address] Apr, [facility] [place] [facility] [address] [id number] [place] [address] Apr, [facility] [place] [facility] [address] [id number] [place] [address] Apr, [facility] [place] [facility] [address] [id number] [place] [address] Apr, [facility] [place] [facility] [address] [id number] [place] [address] Mar, [facility] [place] [facility] [address] [id number] [place] [address] Mar, [facility] [place] [facility] [address] [id number] [place] [address] Mar, [facility] [place] [facility] [address] [id number] [place] [address] Mar, [facility] [place] [facility] [address] [id number] [place] [address] Mar, [facility] [address] [facility] [id number] [place] [address] Mar, IMMUNIZATIONS Vaccine Route Administration Date Status TORADOL (IM) 60 MG/2ML (UP TO 15 MG) IM Intramuscular Apr 06, 2018 Administered SOCIAL HISTORY Never Assessed REASON FOR VISIT back pain was in the ER and dx with UTI, followed up with [facility] last week JSmelissa sserRN PLAN OF CARE Activity Details Follow Up prn Reason: VITAL SIGNS Height 62 in 2018-04-06 Weight 226.6 lbs 2018-04-06 Temperature 98.3 degrees Fahrenheit 2018-04-06 Heart Rate 80 bpm 2018-04-06 Respiratory Rate 20 2018-04-06 BMI 41.44 kg/m2 2018-04-06 Blood pressure systolic 110 mmHg 2018-04-06 Blood pressure diastolic 70 mmHg 2018-04-06 MEDICATIONS Medication Instructions Dosage Frequency Start Date End Date Duration Status Zofran ODT 4 MG Orally every 8 hours, PRN 1 tablet on the tongue and allow to dissolve as needed Mar, 3 days Active Lisinopril-Hydrochlorothiazide 20-25 MG Orally Once a day 1 tablet in the morning 24h 90 days Active Levothyroxine Sodium 50 mcg Orally Once a day 1 tablet on an empty stomach in the morning 24h Aug, 90 days Active Amoxicillin-Pot Clavulanate 500-125 MG Orally every 12 hrs as directed 12h Mar, Apr, 7 days Active Omeprazole 20 mg Orally Once a day 1 capsule 24h October, 90 days Active Lipitor 40 MG Orally Once a day 1 tablet 24h Nov, 30 day(s) Not-Taking Zofran ODT 4 MG Orally every 8 hrs as needed for nausea 1 tablet on the tongue and allow to dissolve Jan, 30 days Not-Taking Mobic 15 MG Orally Once a day 1 tablet 24h 30 days Not-Taking Ventolin HFA 108 (90 Base) MCG/ACT Inhalation every 6 hrs 2 puffs as needed 6h Jun, 30 days Active RESULTS No Results PROCEDURES Procedure Date Ordered Result Body Site X-RAY EXAM OF LOWER SPINE Apr 06, 2018 X-RAY EXAM OF THORACIC SPINE Apr 06, 2018 URINE CULTURE/COLONY COUNT Apr 06, 2018 URINALYSIS, AUTO, W/O SCOPE Apr 06, 2018 THER/PROPH/DIAG INJ, SC/IM Apr 06, 2018 TORADOL (IM) 60 MG/2ML (UP TO 15 MG) Apr 06, 2018 INSTRUCTIONS MEDICATIONS ADMINISTERED No Known Medications MEDICAL (GENERAL) HISTORY Type Description Date Medical History HTN Medical History Depression Medical History Arthritis Surgical History Breast lump removed Surgical History Removal of cyst from ovary Surgical History cholecystectomy Surgical History Stomach surgeryx3 Hospitalization History Mental floor at [facility]
--- OUTSIDE RECORDS SUMMARY | 2018-10-27 16:07 | XMS REPORT ---
Author Author ERIC BINGHAM [facility] Address [address] [place] [address] Care Team Providers Care Halftone Operator Name Role Phone ERIC BINGHAM Unavailable PROBLEMS Type Condition ICD9-CM Code HBW22-JU Code Onset Dates Condition Status SNOMED Code Problem Presbyopia H52.4 Active 28636112 Problem Unspecified open-angle glaucoma, stage unspecified H40.10X0 Feb, Active 35078751 Problem Nondependent 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 Active 589323628 Problem Unspecified epilepsy without mention of intractable epilepsy G40.909 Active 20539119 Problem Chronic tension-type headache, intractable G44.221 Active 492624059 Problem Other chronic pain G89.29 Active 143694855 Problem Goiter E04.9 Active 1069422 Problem Hypertension I10 Active 57112341 Problem Multinodular goiter E04.2 Active 561407224 Problem Cough R05 Active 03400116 Problem Acquired hypothyroidism E03.9 Active 933837868 Problem Abnormal laboratory test R89.9 Active 164451131 Problem Urge incontinence of urine N39.41 Active 53981629 Problem Esophageal reflux K21.9 Active 655798016 Problem Rheumatoid arthritis M06.9 Active 01782290 Problem Hyperlipidemia, unspecified E78.5 Active 58449943 Problem Chronic obstructive pulmonary disease, unspecified COPD type J44.9 Active 40669712 Problem Carpal tunnel syndrome of left wrist G56.02 Active 429209670291817 Problem BMI 40.0-44.9, adult Z68.41 Active 481252292 Problem Reactive airway disease without complication, unspecified asthma severity, unspecified whether persistent J45.909 Active 544768295088 Problem Right-sided low back pain without sciatica M54.5 Active 685555290 Problem Arthralgia M25.50 Active 68871572 Problem Depressive disorder F32.9 Active 35389852 Problem Depression F32.9 Active 75534037 Problem Thyroid nodule E04.1 Active 926217994 Problem Neuropathy G62.9 Active 374662450 Problem Insomnia G47.00 Active 352542082 Problem Anxiety disorder, unspecified F41.9 Active 035757413 ALLERGIES Substance Reaction Event Type Date Status Penicillin V Potassium anaphylaxis Drug Allergy Apr, Active ENCOUNTERS Encounter Location Date Diagnosis [facility] [id number] [place] [address] Apr, Abnormal laboratory test R89.9 [facility] [id number] [place] [address] Apr, Abnormal laboratory test R89.9 [facility] [id number] [place] [address] Apr, Abnormal laboratory test R89.9 [facility] [id number] [place] [address] Apr, [facility] [id number] [place] [address] Apr, [facility] [id number] [place] [address] Apr, Nonintractable episodic headache, unspecified headache type R51 ; Urge incontinence of urine N39.41 ; BMI 40.0-44.9, adult Z68.41 ; Myalgia M79.10 and Acute cystitis without hematuria N30.00 [facility] [id number] [place] [address] Mar, Nasal congestion R09.81 ; Low back pain M54.5 ; Reactive airway disease without complication, unspecified asthma severity, unspecified whether persistent J45.909 ; Other chronic pain G89.29 ; Acute cystitis with hematuria N30.01 and BMI 40.0-44.9, adult Z68.41 [facility] [address] [place] [address] Mar, Acute cystitis with hematuria N30.01 [facility] [id number] [place] [address] Mar, BMI 40.0-44.9, adult Z68.41 ; Acute cystitis with hematuria N30.01 ; Acute bilateral low back pain without sciatica M54.5 and Nausea R11.0 [facility] [id number] [place] [address] Mar, Hypertension I10 ; Acquired hypothyroidism E03.9 ; Esophageal reflux K21.9 ; Chronic obstructive pulmonary disease, unspecified COPD type J44.9 and BMI 40.0-44.9, adult Z68.41 [facility] [id number] [place] [address] Mar, Hypertension I10 [address] [address] Nov, Hyperlipidemia, unspecified E78.[address] [address] October, Chest pain, unspecified type R07.9 and Acquired hypothyroidism E03.9 [facility] [id number] [place] [address] October, Chest pain, unspecified type R07.9 ; Family history of coronary artery disease Z82.49 ; Carpal tunnel syndrome of left wrist G56.02 ; Hypertension I10 ; Esophageal reflux K21.9 ; Arthralgia M25.50 ; Acquired hypothyroidism E03.9 ; Cough R05 ; Nausea R11.0 ; Weight gain R63.5 and BMI 45.0-49.9, adult Z68.42 [facility] [id number] [place] [address] Jun, Acquired hypothyroidism E03.9 and Cough R05 [address] [address] May, [address] [address] Feb, Tarsal tunnel syndrome of both lower extremities G57.53 and Neuropathy G62.9 [facility] [id number] [place] [address] Dec, Pleuritis R09.1 [place] [address] [address] Nov, [place] [address] [address] October, Arthralgia, unspecified joint M25.50 and Allergy, initial encounter T78.40XA [place] [address] [address] October, [place] [address] [address] October, Acute recurrent maxillary sinusitis J01.01 and Arthralgia M25.50 [place] [address] [address] Sep, Pharyngitis due to other organism J02.8 [place] [address] [address] Aug, Acute nasopharyngitis J00 [place] [address] [address] Aug, Multinodular goiter E04.2 [facility] [id number] [place] [address] Aug, Thyroid nodule E04.1 [facility] [facility] [id number] [place] [address] Jul, Tarsal tunnel syndrome of both lower extremities G57.53 [place] [facility] [address] [address] Jun, Pneumonia due to infectious organism, unspecified laterality, unspecified part of lung J18.9 [facility] [facility] [id number] [place] [address] Jun, Bronchospasm with bronchitis, acute J20.9 [facility] [facility] [address] [place] [address] May, Acute non-recurrent frontal sinusitis J01.10 [facility] [id number] [place] [address] May, Flat foot [pes planus] (acquired), left foot M21.42 ; Flat foot [pes planus] (acquired), right foot M21.41 and Neuropathy G62.9 [facility] [id number] [place] [address] Apr, Chronic tension-type headache, intractable G44.221 ; Right lower quadrant abdominal pain R10.31 ; Cervicalgia M54.2 ; Acute gastritis without hemorrhage, unspecified gastritis type K29.00 and Hypertension I10 [place] [id number] [place] [address] Mar, Depression F32.9 and Anxiety disorder, unspecified F41.9 [facility] [facility] [id number] [place] [address] Feb, Depressive disorder F32.9 and Anxiety disorder, unspecified F41.9 [place] [facility] [id number] [place] [address] Jan, Dysuria R30.0 ; Lower abdominal pain R10.30 ; Acute bilateral low back pain without sciatica M54.5 ; Nausea and vomiting, unspecified intactability, vomiting of unspecified type R11.2 ; Pain in right foot M79.671 and Pain of left foot M79.672 [place] [id number] [place] [address] Dec, Urinary tract infection, site not specified N39.0 [place] [facility] [id number] [place] [address] Dec, [place] [address] [address] Nov, [place] [id number] [place] [address] Nov, Dysuria R30.0 [facility] [facility] [id number] [place] [address] Nov, Dysuria R30.0 and Acute cystitis with hematuria N30.01 [facility] [id number] [place] [address] October, Nausea R11.0 [place] [facility] [id number] [place] [address] October, Thyroid nodule E04.1 ; Carpal tunnel syndrome, left upper limb G56.02 ; Carpal tunnel syndrome, right upper limb G56.01 and Constipation, unspecified constipation type K59.00 [place] [id number] [place] [address] October, [facility] [id number] [place] [address] October, Thyroid nodule E04.1 [facility] [facility] [id number] [place] [address] October, Cold thyroid nodule E04.1 [facility] [facility] [id number] [place] [address] October, [place] [id number] [place] [address] Sep, Thyroid nodule E04.1 [place] [facility] [id number] [place] [address] Sep, Thyroid nodule E04.1 [place] [id number] [place] [address] Sep, Thyroid nodule E04.1 ; Hypertension I10 ; Esophageal reflux K21.9 and Hyperlipidemia, unspecified E78.5 [place] [facility] [id number] [place] [address] Aug, Other chronic pain G89.29 ; Sinusitis J32.9 and Hypertension I10 [place] [facility] [id number] [place] [address] 29 Jul, 2015 [facility] [id number] [place] [address] 15 Jul, 2015 [place] [address] [address] 10 Jul, 2015 Insomnia G47.00 and Arthralgia M25.50 [place] [id number] [place] [address] 10 Jul, 2015 Depressive disorder F32.9 and Anxiety disorder, unspecified F41.9 [place] [facility] [id number] [place] [address] May, Right-sided low back pain without sciatica M54.5 and Depression F32.9 [place] [facility] [id number] [place] [address] Apr, Hematuria R31.9 [place] [address] [address] Mar, Other chronic pain G89.29 [place] [facility] [id number] [place] [address] Mar, Other chronic pain G89.29 [place] [id number] [place] [address] 28 Feb, 2015 [place] [id number] [place] [address] 22 Feb, 2015 Other chronic pain 338.29 ; Dysuria 788.1 ; UTI (urinary tract infection) 599.0 ; Insomnia 780.52 ; Hot flashes 627.2 and Hypertension 401.9 [place] [id number] [place] [address] 14 Feb, 2015 Dysuria 788.1 [place] [id number] [place] [address] Feb, [facility] [address] [place] [address] Jan, [facility] [id number] [place] [address] Jan, [facility] [address] [address] Jan, Fibromyalgia 729.1 ; Hypertension 401.9 ; Dysthymia 300.4 and Hot flashes 627.2 [facility] [address] [place] [address] Dec, [facility] [address] [place] [address] Dec, [facility] [address] [address] Dec, [facility] [address] [place] [address] Nov, Other chronic pain 338.29 [facility] [address] [place] [address] October, [facility] [address] [address] October, [facility] [address] [place] [address] Sep, [facility] [id number] [address] Sep, [facility] [address] [place] [address] Aug, [facility] [id number] [place] [address] Aug, [facility] [address] [address] Aug, [facility] [place] [facility] [address] [id number] [place] [address] Aug, [facility] [place] [facility] [address] [id number] [place] [address] Aug, [facility] [place] [facility] [address] [id number] [place] [address] Aug, [facility] [place] [facility] [address] [id number] [place] [address] Aug, [facility] [place] [facility] [address] [id number] [place] [address] Aug, [facility] [place] [facility] [address] [id number] [place] [address] Aug, [facility] [place] [facility] [address] [facility] [id number] [place] [address] Aug, [facility] [place] [facility] [address] [id number] [place] [address] Aug, [facility] [place] [facility] [address] [id number] [place] [address] Aug, [facility] [place] [facility] [address] [id number] [place] [address] Aug, [facility] [place] [facility] [address] [id number], [place] [address] Aug, [facility] [place] [facility] [address] [id number], [place] [address] Jul, [facility] [place] [facility] [address] [id number] [place] [address] Jul, [facility] [place] [facility] [address] [id number] [place] [address] Jul, [facility] [place] [facility] [address] [id number] [place] [address] Jul, [facility] [place] [facility] [address] [id number] [place] [address] 12 Jul, 2014 [facility] [address] [id number] [place] [address] Jul, [facility] [place] [facility] [address] [id number] [place] [address] 15 Jun, 2014 [facility] [place] [facility] [address] [id number] [place] [address] Jun, [facility] [place] [facility] [address] [id number] [place] [address] Jun, [facility] [place] [facility] [address] [id number] [place] [address] Jun, [facility] [address] [id number] [place] [address] May, [facility] [address] [id number] [place] [address] May, [facility] [address] [id number] [place] [address] May, [facility] [address] [id number] [place] [address] May, [facility] [address] [id number] [place] [address] May, [facility] [place] [facility] [address] [id number] [place] [address] May, [facility] [place] [facility] [address] [id number] [place] [address] May, [facility] [place] [facility] [address] [id number] [place] [address] May, [facility] [place] [facility] [address] [id number] [place] [address] May, [facility] [place] [facility] [address] [id number] [place] [address] May, [facility] [place] [facility] [address] [id number] [place] [address] Apr, [facility] [place] [facility] [address] [id number] [place] [address] Apr, [facility] [place] [facility] [address] [id number] [place] [address] Apr, [facility] [place] [facility] [address] [id number] [place] [address] Apr, [facility] [place] [facility] [address] [id number] [place] [address] Apr, [facility] [place] [facility] [address] [id number] [place] [address] Apr, [facility] [place] [facility] [address] [id number] [place] [address] Apr, [facility] [place] [facility] [address] [id number] [place] [address] Apr, [facility] [place] [facility] [address] [id number] [place] [address] Apr, [facility] [place] [facility] [address] [id number] [place] [address] Mar, [facility] [place] [facility] [address] [id number] [place] [address] Mar, [facility] [place] [facility] [address] [id number], [place] [address] Mar, [facility] [place] [facility] [address] [id number] [place] [address] Mar, [facility] [place] [facility] [address] [id number] [place] [address] Mar, [facility] [place] [facility] [address] [id number] [place] [address] Mar, [facility] [place] [facility] [address] [id number] [place] [address] 08 Mar, 2013 [facility] [place] [facility] [address] [id number] [place] [address] 08 Mar, 2013 [facility] [place] [facility] [address] [id number] [place] [address] 30 Sep, 2013 [facility] [place] [facility] [address] [id number] [place] [address] 30 Sep, 2013 [facility] [place] [facility] [address] [id number] [place] [address] 24 Sep, 2013 [facility] [place] [facility] [address] [id number] [place] [address] 24 Sep, 2013 [facility] [place] [facility] [address] [id number] [place] [address] 22 Sep, 2013 [facility] [place] [facility] [address] [id number] [place] [address] 22 Sep, 2013 [facility] [place] [facility] [address] [id number] [place] [address] 10 Sep, 2013 [facility] [place] [facility] [address] [id number] [place] [address] 10 Sep, 2013 [facility] [place] [facility] [address] [id number] [place] [address] 03 Sep, 2013 [facility] [place] [facility] [address] [id number] [place] [address] 03 Sep, 2013 [facility] [place] [facility] [address] [id number], [place] [address] 03 Sep, 2013 [facility] [place] [facility] [address] [id number] [place] [address] 03 Sep, 2013 [facility] [place] [facility] [address] [id number] [place] [address] 03 Sep, 2013 [facility] [place] [facility] [address] [id number] [place] [address] 03 Sep, 2013 [facility] [place] [facility] [address] [id number] [place] [address] Jan, [facility] [place] [facility] [address] [id number] [place] [address] Jan, [facility] [place] [facility] [address] [id number] [place] [address] Dec, [facility] [place] [facility] [address] [id number] [place] [address] Dec, [facility] [place] [facility] [address] [id number] [place] [address] Dec, [facility] [place] [facility] [address] [id number] [place] [address] Dec, [facility] [place] [facility] [address] [id number] [place] [id number] Dec, [facility] [place] [facility] [address] [id number] [place] [address] Dec, [facility] [place] [facility] [address] [id number] [place] [address] Dec, [facility] [place] [facility] [address] [id number] [place] [address] Dec, [facility] [place] [facility] [address] [id number] [place] [address] Dec, [facility] [place] [facility] [address] [id number] [place] [address] Dec, [facility] [place] [facility] [address] [id number] [place] [address] Dec, [facility] [place] [facility] [address] [id number] [place] [address] Dec, [facility] [place] [facility] [address] [id number] [place] [address] Dec, [facility] [place] [facility] [address] [id number] [place] [address] Dec, [facility] [place] [facility] [address] [id number] [place] [address] Dec, [facility] [place] [facility] [address] [id number] [place] [address] Dec, [facility] [place] [facility] [address] [id number] [place] [address] Dec, [facility] [place] [facility] [address] [id number] [place] [address] Dec, [facility] [place] [facility] [address] [id number] [place] [address] Dec, [facility] [place] [facility] [address] [id number] [place] [address] Nov, [facility] [place] [facility] [address] [id number] [place] [address] Nov, [facility] [place] [facility] [address] [id number] [place] [address] Nov, [facility] [place] [facility] [address] [id number] [place] [address] Nov, [facility] [place] [facility] [address] [id number] [place] [address] Nov, [facility] [place] [facility] [address] [id number] [place] [address] Nov, [facility] [place] [facility] [address] [id number], [place] [address] Nov, [facility] [place] [facility] [address] [id number] [place] [address] Nov, [facility] [place] [facility] [address] [id number] [place] [address] Nov, [facility] [place] [facility] [address] [id number] [place] [address] October, [facility] [place] [facility] [address] [id number] [place] [address] October, [facility] [address] [id number] [place] [address] October, [facility] [place] [facility] [address] [id number] [place] [address] October, [facility] [place] [facility] [address] [id number] [place] [address] October, [facility] [place] [facility] [address] [id number] [place] [address] October, [facility] [place] [facility] [address] [id number] [place] [address] October, [facility] [place] [facility] [address] [id number] [place] [address] October, [facility] [address] [id number] [place] [address] Sep, [facility] [place] [facility] [address] [id number] [place] [address] Sep, [facility] [place] [facility] [address] [id number] [place] [address] Sep, [facility] [place] [facility] [address] [id number] [place] [address] Sep, [facility] [place] [facility] [address] [id number] [place] [address] Sep, [facility] [place] [facility] [address] [id number] [place] [address] Sep, [facility] [place] [facility] [address] [id number] [place] [address] Sep, [facility] [place] [facility] [address] [id number] [place] [address] Aug, [facility] [place] [facility] [address] [id number] [place] [address] Aug, [facility] [place] [facility] [address] [id number] [place] [address] Aug, [facility] [place] [facility] [address] [id number] [place] [address] Aug, [facility] [place] [facility] [address] [id number] [place] [address] Aug, [facility] [place] [facility] [address] [id number] [place] [address] Aug, [facility] [place] [facility] [address] [id number] [place] [address] Jul, [facility] [place] [facility] [address] [id number] [place] [address] Jul, [facility] [place] [facility] [address] [id number] [place] [address] Jul, [facility] [place] [facility] [address] [id number] [place] [address] Jul, [facility] [place] [facility] [address] [id number] [place] [address] Jul, [facility] [place] [facility] [address] [id number] [place] [address] Jul, [facility] [place] [facility] [address] [id number] [place] [address] Jun, [facility] [place] [facility] [address] [id number] [place] [address] Jun, [facility] [place] [facility] [address] [id number] [place] [address] Jun, [facility] [place] [facility] [address] [id number] [place] [address] Jun, [facility] [place] [facility] [address] [id number] [place] [address] Jun, [facility] [place] [facility] [address] [id number] [place] [address] Jun, [facility] [address] [id number] [place] [address] Jun, [facility] [place] [facility] [address] [id number] [place] [address] Jun, [facility] [address] [id number] [place] [address] Jun, [facility] [place] [facility] [address] [id number] [place] [address] Jun, [facility] [address] [id number] [place] [address] Jun, [facility] [place] [facility] [address] [id number] [place] [address] Jun, [facility] [address] [id number] [place] [address] Jun, [facility] [place] [facility] [address] [id number] [place] [address] 30 May, 2013 [facility] [address] [id number] [place] [address] 30 May, 2013 [facility] [place] [facility] [address] [id number] [place] [address] 30 May, 2013 [facility] [place] [facility] [address] [id number] [place] [address] 30 May, 2013 [facility] [place] [facility] [address] [id number] [place] [address] 26 May, 2013 [facility] [place] [facility] [address] [id number] [place] [address] 14 May, 2013 [facility] [place] [facility] [address] [id number] [place] [address] 14 May, 2013 [facility] [place] [facility] [address] [id number] [place] [address] 12 May, 2013 [facility] [place] [facility] [address] [id number] [place] [address] 12 May, 2013 [facility] [place] [facility] [address] [id number] [place] [address] May, [facility] [place] [facility] [address] [id number] [place] [address] May, [facility] [place] [facility] [address] [id number] [place] [address] May, [facility] [place] [facility] [address] [id number] [place] [address] May, [facility] [place] [facility] [address] [id number] [place] [address] May, [facility] [place] [facility] [address] [id number] [place] [address] May, [facility] [place] [facility] [address] [id number] [place] [address] May, [facility] [place] [facility] [address] [id number] [place] [address] May, [facility] [place] [facility] [address] [id number] [place] [address] May, [facility] [place] [facility] [address] [id number] [place] [address] May, [facility] [place] [facility] [address] [id number] [place] [address] May, [facility] [place] [facility] [address] [id number] [place] [address] May, [facility] [place] [facility] [address] [id number] [place] [address] Apr, [facility] [place] [facility] [address] [id number] [place] [address] Apr, [facility] [place] [facility] [address] [id number] [place] [address] Apr, [facility] [place] [facility] [address] [id number] [place] [address] Apr, [facility] [place] [facility] [address] [id number] [place] [address] Mar, [facility] [place] [facility] [address] [id number] [place] [address] 23 Feb, 2013 [facility] [place] [facility] [address] [id number] [place] [address] 16 Feb, 2013 [facility] [place] [facility] [address] [id number] [place] [address] 13 Feb, 2013 [facility] [place] [facility] [address] [id number] [place] [address] 10 Feb, 2013 [facility] [place] [facility] [address] [id number] [place] [address] Feb, [facility] [place] [facility] [address] [id number] [place] [address] Feb, [facility] [place] [facility] [address] [id number] [place] [address] Jan, [facility] [place] [facility] [address] [id number] [place] [address] Jan, [facility] [place] [facility] [address] [id number], [place] [address] Jan, [facility] [place] [facility] [address] [id number], [place] [address] Dec, [facility] [place] [facility] [address] [id number] [place] [address] Dec, [facility] [place] [facility] [address] [id number] [place] [address] Dec, [facility] [place] [facility] [address] [id number] [place] [address] Dec, [facility] [place] [facility] [address] [id number] [place] [address] Dec, [facility] [address] [id number] [place] [address] Nov, [facility] [place] [facility] [address] [id number] [place] [address] Nov, [facility] [address] [id number] [place] [address] Nov, [facility] [place] [facility] [address] [id number] [place] [address] Nov, [facility] [place] [facility] [address] [id number] [place] [address] Nov, [facility] [place] [facility] [address] [id number] [place] [address] 08 Nov, 2012 [facility] [address] [id number] [place] [address] Nov, [facility] [address] [id number] [place] [address] Nov, [facility] [place] [facility] [address] [id number] [place] [address] Nov, [facility] [address] [id number] [place] [address] Nov, [facility] [place] [facility] [address] [id number] [place] [address] October, [facility] [place] [facility] [address] [id number] [place] [address] October, [facility] [place] [facility] [address] [id number] [place] [address] Sep, [facility] [place] [facility] [address] [id number] [place] [address] Sep, [facility] [place] [facility] [address] [id number] [place] [address] Sep, [facility] [place] [facility] [address] [id number] [place] [address] Sep, [facility] [address] [id number] [place] [address] Sep, [facility] [address] [id number] [place] [address] Aug, [facility] [place] [facility] [address] [id number] [place] [address] Aug, [facility] [address] [id number] [place] [address] Jul, [facility] [place] [facility] [address] [id number] [place] [address] Jul, [facility] [address] [id number] [place] [address] Jun, [facility] [address] [id number] [place] [address] Jun, [facility] [address] [id number] [place] [address] May, [facility] [address] [id number] [place] [address] May, [facility] [address] [facility] [id number], [place] [address] May, [facility] [place] [facility] [address] [id number], [place] [address] May, [facility] [place] [facility] [address] [id number] [place] [address] Apr, [facility] [place] [facility] [address] [id number] [place] [address] Apr, [facility] [place] [facility] [address] [id number], [place] [address] Apr, [facility] [place] [facility] [address] [id number], [place] [address] Apr, [facility] [place] [facility] [address] [id number] [place] [address] Apr, [facility] [place] [facility] [address] [id number] [place] [address] Apr, [facility] [place] [facility] [address] [id number] [place] [address] Apr, [facility] [place] [facility] [address] [id number] [place] [address] Apr, [facility] [place] [facility] [address] [id number] [place] [address] Apr, [facility] [place] [facility] [address] [id number] [place] [address] Mar, [facility] [place] [facility] [address] [facility] [id number] [place] [address] Mar, [facility] [place] [facility] [address] [id number] [place] [address] Feb, [facility] [place] [facility] [address] [facility] [id number] [place] [address] Jan, [facility] [place] [facility] [address] [facility] [id number] [place] [address] Jan, [facility] [place] [facility] [address] [facility] [id number] [place] [address] Dec, [facility] [place] [facility] [address] [id number] [place] [address] Nov, [facility] [place] [facility] [address] [id number] [place] [address] Nov, [facility] [place] [facility] [address] [facility] [id number] [place] [address] October, [facility] [place] [facility] [address] [facility] [id number] [place] [address] October, [facility] [place] [facility] [address] [id number] [place] [address] 29 Sep, 2011 [facility] [place] [facility] [address] [id number] [place] [address] Sep, [facility] [place] [facility] [address] [id number] [place] [address] May, [facility] [place] [facility] [address] [id number] [place] [address] Apr, [facility] [place] [facility] [address] [id number] [place] [address] Apr, [facility] [place] [facility] [address] [id number] [place] [address] Apr, [facility] [place] [facility] [address] [id number] [place] [address] Apr, [facility] [place] [facility] [address] [id number] [place] [address] Apr, [facility] [place] [facility] [address] [id number] [place] [address] Apr, [facility] [place] [facility] [address] [id number] [place] [address] Apr, [facility] [place] [facility] [address] [id number] [place] [address] Apr, [facility] [place] [facility] [address] [id number] [place] [address] Mar, [facility] [place] [facility] [address] [id number] [place] [address] Mar, [facility] [place] [facility] [address] [id number] [place] [address] Mar, [facility] [place] [facility] [address] [id number] [place] [address] Mar, [facility] [place] [facility] [address] [id number] [place] [address] Mar, [facility] [address] [facility] [id number] [place] [address] Mar, IMMUNIZATIONS No Known Immunizations SOCIAL HISTORY Never Assessed REASON FOR VISIT Urinary incontinence/Headache/Vomiting [id number] [facility] mA , shortness of breath [id number] - 98% on room air [facility] MA , did 7 day treatment for poss yeast in fection but is back but doesnt burn or itch just irritated [facility] mA , sharp ch est pains and pressure [facility]Page ma PLAN OF CARE Activity Details Follow Up Will call after lab Reason: VITAL SIGNS Weight 229.7 lbs 2018-04-24 Temperature 97.3 degrees Fahrenheit 2018-04-24 Heart Rate 86 bpm 2018-04-24 Respiratory Rate 20 2018-04-24 BMI 42.01 kg/m2 2018-04-24 Blood pressure systolic 108 mmHg 2018-04-24 Blood pressure diastolic 68 mmHg 2018-04-24 MEDICATIONS Medication Instructions Dosage Frequency Start Date End Date Duration Status Mobic 15 MG Orally Once a day 1 tablet 24h 30 days Not-Taking Zofran ODT 4 MG Orally every 8 hours, PRN 1 tablet on the tongue and allow to dissolve as needed Mar, 3 days Active Zofran ODT 4 MG Orally every 8 hrs as needed for nausea 1 tablet on the tongue and allow to dissolve Jan, 30 days Not-Taking Omeprazole 20 mg Orally Once a day 1 capsule 24h October, 90 days Active Lipitor 40 MG Orally Once a day 1 tablet 24h Nov, 30 day(s) Not-Taking Amoxicillin-Pot Clavulanate 500-125 MG Orally every 12 hrs 1 tablet 12h Mar, 7 days Not-Taking Lisinopril-Hydrochlorothiazide 20-25 MG Orally Once a day 1 tablet in the morning 24h 90 days Active Macrobid 100 mg Orally every 12 hrs 1 capsule with food 12h Apr, Apr, 7 day(s) Active Ventolin HFA 108 (90 Base) MCG/ACT Inhalation every 6 hrs 2 puffs as needed 6h Jun, 30 days Active Levothyroxine Sodium 50 mcg Orally Once a day 1 tablet on an empty stomach in the morning 24h Aug, 90 days Active RESULTS Name Result Date Reference Range UA LONG DIP (IN HOUSE) 2018-04-24 Lot # [id number] Exp date 09/2018 Clarity clear Color yellow Odor none GLU negaitve NAUN negative KET negative SG 1.030 BLO negative pH 5.5 Protein trace URO 0.2 NIT negative CARLOS 1+ Lot # Exp date CBC 2018-04-24 WHITE BLOOD CELL COUNT 10.9 3.8-10.8 RED BLOOD CELL COUNT 4.32 3.80-5.10 HEMOGLOBIN 13.3 11.7-15.5 HEMATOCRIT 38.6 35.0-45.0 MCV 89.4 80.0-100.0 MCH 30.8 27.0-33.0 MCHC 34.5 32.0-36.0 RDW 13.3 11.0-15.0 PLATELET COUNT 278 140-400 MPV 9.3 7.5-12.5 ABSOLUTE NEUTROPHILS 7663 [id number] ABSOLUTE LYMPHOCYTES 4240 613-8502 ABSOLUTE MONOCYTES 1264 200-950 ABSOLUTE EOSINOPHILS 0 15-500 ABSOLUTE BASOPHILS 55 0-200 NEUTROPHILS 70.3 LYMPHOCYTES 17.6 MONOCYTES 11.6 EOSINOPHILS 0.0 BASOPHILS 0.5 CRP 2018-04-24 C-REACTIVE PROTEIN 50.2 <8.0 PROCEDURES Procedure Date Ordered Result Body Site URINALYSIS, AUTO, W/O SCOPE Apr 24, 2018 C-REACTIVE PROTEIN Apr 24, 2018 VENIPUNCT, ROUTINE* Apr 24, 2018 COMPLETE CBC W/AUTO DIFF WBC Apr 24, 2018 INSTRUCTIONS MEDICATIONS ADMINISTERED No Known Medications MEDICAL (GENERAL) HISTORY Type Description Date Medical History HTN Medical History Depression Medical History Arthritis Surgical History Breast lump removed Surgical History Removal of cyst from ovary Surgical History cholecystectomy Surgical History Stomach surgeryx3 Hospitalization History Mental floor at [facility]
--- OUTSIDE RECORDS SUMMARY | 2018-10-27 16:08 | XMS REPORT ---
Author Author ERIC BINGHAM [facility] Address [address] [place] [address] Care Team Providers Care [employer] Supervisor Name Role Phone ERIC BINGHAM Unavailable PROBLEMS Type Condition ICD9-CM Code RWL09-JY Code Onset Dates Condition Status SNOMED Code Problem Presbyopia H52.4 Active 19178065 Problem Unspecified open-angle glaucoma, stage unspecified H40.10X0 Feb, Active 06788879 Problem Nondependent 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 Active 916155064 Problem Unspecified epilepsy without mention of intractable epilepsy G40.909 Active 83040765 Problem Chronic tension-type headache, intractable G44.221 Active 738353525 Problem Other chronic pain G89.29 Active 095512820 Problem Goiter E04.9 Active 6312303 Problem Hypertension I10 Active 43655834 Problem Multinodular goiter E04.2 Active 888129373 Problem Cough R05 Active 24603596 Problem Acquired hypothyroidism E03.9 Active 939373335 Problem Abnormal laboratory test R89.9 Active 633584057 Problem Urge incontinence of urine N39.41 Active 62488434 Problem Esophageal reflux K21.9 Active 940238831 Problem Rheumatoid arthritis M06.9 Active 17828067 Problem Hyperlipidemia, unspecified E78.5 Active 06043600 Problem Chronic obstructive pulmonary disease, unspecified COPD type J44.9 Active 43835025 Problem Carpal tunnel syndrome of left wrist G56.02 Active 548824609931388 Problem BMI 40.0-44.9, adult Z68.41 Active 767351361 Problem Reactive airway disease without complication, unspecified asthma severity, unspecified whether persistent J45.909 Active 895273772083 Problem Right-sided low back pain without sciatica M54.5 Active 575611784 Problem Arthralgia M25.50 Active 31167276 Problem Depressive disorder F32.9 Active 95270885 Problem Depression F32.9 Active 93154376 Problem Thyroid nodule E04.1 Active 709662133 Problem Neuropathy G62.9 Active 767576282 Problem Insomnia G47.00 Active 440693144 Problem Anxiety disorder, unspecified F41.9 Active 298278257 ALLERGIES No Information ENCOUNTERS Encounter Location Date Diagnosis [facility] [id number] [place] [address] Apr, Abnormal laboratory test R89.9 [facility] [id number] [place] [address] Apr, Abnormal laboratory test R89.9 [facility] [id number] [place] [address] Apr, Abnormal laboratory test R89.9 [place] [id number] [place] [address] Apr, [place] [id number] [place] [address] Apr, [facility] [id number] [place] [address] Apr, Nonintractable episodic headache, unspecified headache type R51 ; Urge incontinence of urine N39.41 ; BMI 40.0-44.9, adult Z68.41 ; Myalgia M79.10 and Acute cystitis without hematuria N30.00 [place] [id number] [place] [address] Mar, Nasal congestion R09.81 ; Low back pain M54.5 ; Reactive airway disease without complication, unspecified asthma severity, unspecified whether persistent J45.909 ; Other chronic pain G89.29 ; Acute cystitis with hematuria N30.01 and BMI 40.0-44.9, adult Z68.41 [facility] [id number] [place] [address] Mar, Acute cystitis with hematuria N30.01 [facility] [id number] [place] [address] Mar, BMI 40.0-44.9, adult Z68.41 ; Acute cystitis with hematuria N30.01 ; Acute bilateral low back pain without sciatica M54.5 and Nausea R11.0 [place] [address] [address] 17 Mar, 2018 Hypertension I10 ; Acquired hypothyroidism E03.9 ; Esophageal reflux K21.9 ; Chronic obstructive pulmonary disease, unspecified COPD type J44.9 and BMI 40.0-44.9, adult Z68.41 [place] [address] [address] 15 Mar, 2018 Hypertension [address]10 [address] [address] Nov, Hyperlipidemia, unspecified E78.[address] [address] October, Chest pain, unspecified type R07.9 and Acquired hypothyroidism E03.9 [place] [id number] [place] [address] October, Chest pain, unspecified type R07.9 ; Family history of coronary artery disease Z82.49 ; Carpal tunnel syndrome of left wrist G56.02 ; Hypertension I10 ; Esophageal reflux K21.9 ; Arthralgia M25.50 ; Acquired hypothyroidism E03.9 ; Cough R05 ; Nausea R11.0 ; Weight gain R63.5 and BMI 45.0-49.9, adult Z68.42 [place] [id number] [place] [address] Jun, Acquired hypothyroidism E03.9 and Cough R05 [address] [address] May, [address] [address] Feb, Tarsal tunnel syndrome of both lower extremities G57.53 and Neuropathy G62.[address] [place] [address] Dec, Pleuritis R09.1 [place] [address] [address] Nov, [place] [address] [address] October, Arthralgia, unspecified joint M25.50 and Allergy, initial encounter T78.40XA [place] [address] [address] October, [place] [address] [address] October, Acute recurrent maxillary sinusitis J01.01 and Arthralgia M25.50 [place] [address] [address] Sep, Pharyngitis due to other organism J02.8 [place] [id number] [place] [address] Aug, Acute nasopharyngitis J00 [place] [address] [address] Aug, Multinodular goiter E04.2 [place] [id number] [place] [address] Aug, Thyroid nodule E04.1 [place] [id number] [place] [address] Jul, Tarsal tunnel syndrome of both lower extremities G57.53 [place] [id number] [place] [address] Jun, Pneumonia due to infectious organism, unspecified laterality, unspecified part of lung J18.9 [place] [id number] [place] [address] Jun, Bronchospasm with bronchitis, acute J20.9 [place] [id number] [place] [address] May, Acute non-recurrent frontal sinusitis J01.10 [place] [address] [address] May, Flat foot [pes planus] (acquired), left foot M21.42 ; Flat foot [pes planus] (acquired), right foot M21.41 and Neuropathy G62.9 [place] [address] [address] Apr, Chronic tension-type headache, intractable G44.221 ; Right lower quadrant abdominal pain R10.31 ; Cervicalgia M54.2 ; Acute gastritis without hemorrhage, unspecified gastritis type K29.00 and Hypertension I10 [address] [address] Mar, Depression F32.9 and Anxiety disorder, unspecified F41.9 [place] [address] [address] Feb, Depressive disorder F32.9 and Anxiety disorder, unspecified F41.[address] [address] Jan, Dysuria R30.0 ; Lower abdominal pain R10.30 ; Acute bilateral low back pain without sciatica M54.5 ; Nausea and vomiting, unspecified intactability, vomiting of unspecified type R11.2 ; Pain in right foot M79.671 and Pain of left foot M79.672 [place] [address] [address] Dec, Urinary tract infection, site not specified N39.0 [place] [address] [address] Dec, [place] [address] [address] Nov, [place] [address] [place] [address] Nov, Dysuria R30.0 [place] [address] [address] Nov, Dysuria R30.0 and Acute cystitis with hematuria N30.01 [place] [address] [address] October, Nausea R11.0 [place] [address] [address] October, Thyroid nodule E04.1 ; Carpal tunnel syndrome, left upper limb G56.02 ; Carpal tunnel syndrome, right upper limb G56.01 and Constipation, unspecified constipation type K59.00 [place] [id number] [place] [address] October, [place] [address] [address] October, Thyroid nodule E04.1 [place] [id number] [place] [address] October, Cold thyroid nodule E04.1 [place] [id number] [place] [address] October, [place] [id number] [place] [address] Sep, Thyroid nodule E04.1 [place] [id number] [place] [address] Sep, Thyroid nodule E04.1 [place] [id number] [place] [address] Sep, Thyroid nodule E04.1 ; Hypertension I10 ; Esophageal reflux K21.9 and Hyperlipidemia, unspecified E78.5 [place] [id number] [place] [address] Aug, Other chronic pain G89.29 ; Sinusitis J32.9 and Hypertension I10 [place] [address] [place] [address] 29 Jul, 2015 [place] [id number] [place] [address] 15 Jul, 2015 [place] [id number] [place] [address] 10 Jul, 2015 Insomnia G47.00 and Arthralgia M25.50 [place] [id number] [place] [address] 10 Jul, 2015 Depressive disorder F32.9 and Anxiety disorder, unspecified F41.9 [place] [id number] [place] [address] May, Right-sided low back pain without sciatica M54.5 and Depression F32.9 [place] [id number] [place] [address] Apr, Hematuria R31.9 [place] [id number] [place] [address] Mar, Other chronic pain G89.29 [place] [id number] [place] [address] Mar, Other chronic pain G89.29 [place] [id number] [place] [address] 28 Feb, 2015 [place] [id number] [place] [address] 22 Feb, 2015 Other chronic pain 338.29 ; Dysuria 788.1 ; UTI (urinary tract infection) 599.0 ; Insomnia 780.52 ; Hot flashes 627.2 and Hypertension 401.9 [place] [address] [place] [address] 14 Feb, 2015 Dysuria 788.1 [place] [id number] [place] [address] Feb, [facility] [address] [facility] [id number], [place] [address] Jan, [facility] [id number] [address] Jan, [facility] [address] [place] [address] Jan, Fibromyalgia 729.1 ; Hypertension 401.9 ; Dysthymia 300.4 and Hot flashes 627.2 [facility] [address] [facility] [id number], [place] [address] Dec, [facility] [address] [facility] [id number] [place] [address] Dec, [facility] [address], [place] [address] Dec, [facility] [address] [address] Nov, Other chronic pain 338.29 [facility] [address], [place] [address] October, [facility] [address], [place] [address] October, [facility] [id number] [address] Sep, [facility] [id number] [address] Sep, [facility] [id number] [address] Aug, [facility] [address] [facility] [id number], [place] [address] Aug, [facility] [address] [address] Aug, [facility] [address] [facility] [id number] [place] [address] Aug, [facility] [place] [facility] [address] [id number] [place] [address] Aug, [facility] [place] [facility] [address] [id number] [place] [address] Aug, [facility] [place] [facility] [address] [id number] [place] [address] Aug, [facility] [place] [facility] [address] [id number] [place] [address] Aug, [facility] [place] [facility] [address] [id number] [place] [address] Aug, [facility] [place] [facility] [address] [id number] [place] [address] Aug, [facility] [place] [facility] [address] [id number] [place] [address] Aug, [facility] [place] [facility] [address] [id number] [place] [address] Aug, [facility] [place] [facility] [address] [id number] [place] [address] Aug, [facility] [place] [facility] [address] [id number] [place] [address] Aug, [facility] [place] [facility] [address] [id number] [place] [address] Jul, 2014 [facility] [place] [facility] [address] [id number] [place] [address] Jul, [facility] [place] [facility] [address] [id number] [place] [address] Jul, [facility] [place] [facility] [address] [id number] [place] [address] Jul, 2014 [facility] [place] [facility] [address] [id number] [place] [address] Jul, [facility] [place] [facility] [address] [id number] [place] [address] Jul, [facility] [place] [facility] [address] [id number] [place] [address] Jun, [facility] [place] [facility] [address] [facility] [id number] [place] [address] Jun, [facility] [place] [facility] [address] [id number] [place] [address] Jun, [facility] [place] [facility] [address] [id number] [place] [address] Jun, [facility] [place] [facility] [address] [id number] [place] [address] May, [facility] [place] [facility] [address] [id number] [place] [address] May, [facility] [place] [facility] [address] [id number] [place] [address] May, [facility] [place] [facility] [address] [id number] [place] [address] May, [facility] [place] [facility] [address] [id number] [place] [address] May, [facility] [place] [facility] [address] [id number] [place] [address] May, [facility] [place] [facility] [address] [id number], [place] [address] May, [facility] [place] [facility] [address] [id number] [place] [address] May, [facility] [place] [facility] [address] [facility] [id number] [place] [address] May, [facility] [place] [facility] [address] [facility] [id number] [place] [address] May, [facility] [place] [facility] [address] [id number] [place] [address] Apr, [facility] [place] [facility] [address] [id number] [place] [address] Apr, [facility] [place] [facility] [address] [id number] [place] [address] Apr, [facility] [place] [facility] [address] [id number] [place] [address] Apr, [facility] [place] [facility] [address] [id number] [place] [address] Apr, [facility] [place] [facility] [address] [id number] [place] [address] Apr, [facility] [place] [facility] [address] [id number] [place] [address] Apr, [facility] [place] [facility] [address] [id number] [place] [address] Apr, [facility] [place] [facility] [address] [id number] [place] [address] Apr, [facility] [place] [facility] [address] [id number] [place] [address] Mar, [facility] [place] [facility] [address] [id number] [place] [address] Mar, [facility] [place] [facility] [address] [id number] [place] [address] Mar, [facility] [place] [facility] [address] [id number] [place] [address] Mar, [facility] [place] [facility] [address] [id number] [place] [address] Mar, [facility] [place] [facility] [address] [id number] [place] [address] Mar, [facility] [place] [facility] [address] [id number] [place] [address] Mar, [facility] [place] [facility] [address] [id number] [place] [address] 08 Mar, 2013 [facility] [place] [facility] [address] [id number] [place] [address] 30 Feb, 2013 [facility] [place] [facility] [address] [id number] [place] [address] 30 Feb, 2013 [facility] [place] [facility] [address] [id number] [place] [address] 24 Feb, 2013 [facility] [place] [facility] [address] [id number] [place] [address] 24 Feb, 2013 [facility] [place] [facility] [address] [id number] [place] [address] 22 Feb, 2013 [facility] [place] [facility] [address] [id number] [place] [address] 22 Feb, 2013 [facility] [place] [facility] [address] [id number] [place] [address] 10 Feb, 2013 [facility] [place] [facility] [address] [id number] [place] [address] 10 Feb, 2013 [facility] [place] [facility] [address] [id number] [place] [address] 03 Feb, 2013 [facility] [place] [facility] [address] [id number] [place] [address] 03 Sep, 2013 [facility] [place] [facility] [address] [id number], [place] [address] 03 Sep, 2013 [facility] [place] [facility] [address] [id number] [place] [address] 03 Sep, 2013 [facility] [place] [facility] [address] [id number] [place] [address] 03 Sep, 2013 [facility] [place] [facility] [address] [id number] [place] [address] 03 Sep, 2013 [facility] [place] [facility] [address] [id number] [place] [address] Jan, [facility] [place] [facility] [address] [id number] [place] [address] Jan, [facility] [place] [facility] [address] [id number] [place] [address] Dec, [facility] [place] [facility] [address] [id number] [place] [address] Dec, [facility] [place] [facility] [address] [id number] [place] [address] Dec, [facility] [place] [facility] [address] [id number] [place] [address] Dec, [facility] [place] [facility] [address] [id number] [place] [id number] Dec, [facility] [place] [facility] [address] [id number] [place] [address] Dec, [facility] [place] [facility] [address] [id number] [place] [address] Dec, [facility] [place] [facility] [address] [id number] [place] [address] Dec, [facility] [place] [facility] [address] [id number] [place] [address] Dec, [facility] [place] [facility] [address] [id number] [place] [address] Dec, [facility] [place] [facility] [address] [id number] [place] [address] Dec, [facility] [place] [facility] [address] [id number] [place] [address] Dec, [facility] [place] [facility] [address] [id number] [place] [address] Dec, [facility] [place] [facility] [address] [id number] [place] [address] Dec, [facility] [place] [facility] [address] [id number] [place] [address] Dec, [facility] [place] [facility] [address] [id number] [place] [address] Dec, [facility] [place] [facility] [address] [id number] [place] [address] Dec, [facility] [place] [facility] [address] [id number] [place] [address] Dec, [facility] [place] [facility] [address] [id number] [place] [address] Dec, [facility] [place] [facility] [address] [id number] [place] [address] Nov, [facility] [place] [facility] [address] [id number] [place] [address] Nov, [facility] [place] [facility] [address] [id number] [place] [address] Nov, [facility] [place] [facility] [address] [id number] [place] [address] Nov, [facility] [place] [facility] [address] [id number] [place] [address] Nov, [facility] [place] [facility] [address] [id number] [place] [address] Nov, [facility] [place] [facility] [address] [id number] [place] [address] Nov, [facility] [place] [facility] [address] [id number] [place] [address] Nov, [facility] [place] [facility] [address] [id number] [place] [address] Nov, [facility] [place] [facility] [address] [id number] [place] [address] October, [facility] [place] [facility] [address] [id number] [place] [address] October, [facility] [address] [id number] [place] [address] October, [facility] [place] [facility] [address] [id number] [place] [address] October, [facility] [place] [facility] [address] [id number] [place] [address] October, [facility] [place] [facility] [address] [id number] [place] [address] October, [facility] [place] [facility] [address] [id number] [place] [address] October, [facility] [place] [facility] [address] [id number] [place] [address] October, [facility] [place] [facility] [address] [id number] [place] [address] Sep, [facility] [place] [facility] [address] [id number] [place] [address] Sep, [facility] [place] [facility] [address] [id number] [place] [address] Sep, [facility] [place] [facility] [address] [id number] [place] [address] Sep, [facility] [place] [facility] [address] [id number] [place] [address] Sep, [facility] [place] [facility] [address] [id number] [place] [address] Sep, [facility] [place] [facility] [address] [id number] [place] [address] Sep, [facility] [place] [facility] [address] [id number] [place] [address] Aug, [facility] [place] [facility] [address] [id number] [place] [address] Aug, [facility] [place] [facility] [address] [id number] [place] [address] Aug, [facility] [address] [id number] [place] [address] Aug, [facility] [place] [facility] [address] [id number] [place] [address] Aug, [facility] [place] [facility] [address] [id number] [place] [address] Aug, [facility] [place] [facility] [address] [id number] [place] [address] Jul, [facility] [place] [facility] [address] [id number] [place] [address] Jul, [facility] [place] [facility] [address] [id number] [place] [address] Jul, [facility] [place] [facility] [address] [id number] [place] [address] Jul, [facility] [place] [facility] [address] [id number] [place] [address] Jul, [facility] [place] [facility] [address] [id number] [place] [address] Jul, [facility] [place] [facility] [address] [id number] [place] [address] Jun, [facility] [place] [facility] [address] [id number] [place] [address] Jun, [facility] [place] [facility] [address] [id number] [place] [address] Jun, [facility] [place] [facility] [address] [id number] [place] [address] Jun, [facility] [place] [facility] [address] [id number] [place] [address] Jun, [facility] [place] [facility] [address] [id number] [place] [address] Jun, [facility] [place] [facility] [address] [id number] [place] [address] Jun, [facility] [address] [id number] [place] [address] Jun, [facility] [place] [facility] [address] [id number] [place] [address] 16 Jun, 2013 [facility] [place] [facility] [address] [id number] [place] [address] Jun, [facility] [address] [id number] [place] [address] Jun, [facility] [place] [facility] [address] [id number] [place] [address] Jun, [facility] [address] [id number] [place] [address] Jun, [facility] [address] [id number] [place] [address] 30 May, 2013 [facility] [place] [facility] [address] [id number] [place] [address] 30 May, 2013 [facility] [place] [facility] [address] [id number] [place] [address] 30 May, 2013 [facility] [place] [facility] [address] [id number] [place] [address] 30 May, 2013 [facility] [place] [facility] [address] [id number] [place] [address] 26 May, 2013 [facility] [place] [facility] [address] [id number] [place] [address] May, [facility] [place] [facility] [address] [id number] [place] [address] May, [facility] [place] [facility] [address] [id number] [place] [address] 12 May, 2013 [facility] [place] [facility] [address] [id number], [place] [address] May, [facility] [address] [id number] [place] [address] May, [facility] [place] [facility] [address] [id number] [place] [address] May, [facility] [place] [facility] [address] [id number] [place] [address] May, [facility] [place] [facility] [address] [id number] [place] [address] May, [facility] [place] [facility] [address] [id number] [place] [address] May, [facility] [place] [facility] [address] [id number] [place] [address] May, [facility] [address] [facility] [id number] [place] [address] May, [facility] [place] [facility] [address] [id number] [place] [address] May, [facility] [place] [facility] [address] [id number] [place] [address] May, [facility] [place] [facility] [address] [id number] [place] [address] May, [facility] [place] [facility] [address] [id number], [place] [address] May, [facility] [place] [facility] [address] [id number], [place] [address] May, [facility] [place] [facility] [address] [id number] [place] [address] Apr, [facility] [place] [facility] [address] [id number] [place] [address] Apr, [facility] [place] [facility] [address] [id number] [place] [address] Apr, [facility] [place] [facility] [address] [id number] [place] [address] Apr, [facility] [address] [id number] [place] [address] 08 Mar, 2013 [facility] [place] [facility] [address] [id number] [place] [address] 23 Feb, 2012 [facility] [place] [facility] [address] [id number] [place] [address] 16 Feb, 2012 [facility] [place] [facility] [address] [id number] [place] [address] 13 Feb, 2013 [facility] [place] [facility] [address] [id number] [place] [address] 10 Feb, 2013 [facility] [place] [facility] [address] [id number] [place] [address] 09 Feb, 2013 [facility] [place] [facility] [address] [id number] [place] [address] Feb, [facility] [place] [facility] [address] [id number] [place] [address] Jan, [facility] [place] [facility] [address] [id number] [place] [address] Jan, [facility] [place] [facility] [address] [id number] [place] [address] Jan, [facility] [place] [facility] [address] [id number] [place] [address] Dec, [facility] [place] [facility] [address] [id number] [place] [address] Dec, [facility] [place] [facility] [address] [id number] [place] [address] Dec, [facility] [place] [facility] [address] [id number] [place] [address] Dec, [facility] [place] [facility] [address] [id number] [place] [address] Dec, [facility] [address] [id number] [place] [address] Nov, [facility] [place] [facility] [address] [id number] [place] [address] Nov, [facility] [place] [facility] [address] [id number] [place] [address] Nov, [facility] [place] [facility] [address] [id number] [place] [address] Nov, [facility] [place] [facility] [address] [id number] [place] [address] Nov, [facility] [place] [facility] [address] [id number] [place] [address] Nov, [facility] [place] [facility] [address] [id number] [place] [address] Nov, [facility] [place] [facility] [address] [id number] [place] [address] Nov, [facility] [place] [facility] [address] [id number] [place] [address] Nov, [facility] [place] [facility] [address] [id number], [place] [address] Nov, [facility] [place] [facility] [address] [id number] [place] [address] October, [facility] [place] [facility] [address] [id number], [place] [address] October, [facility] [place] [facility] [address] [id number] [place] [address] Sep, [facility] [place] [facility] [address] [id number], [place] [address] Sep, [facility] [place] [facility] [address] [id number] [place] [address] Sep, [facility] [place] [facility] [address] [id number] [place] [address] 06 Sep, 2012 [facility] [address] [id number] [place] [address] Sep, [facility] [place] [facility] [address] [id number] [place] [address] Aug, [facility] [place] [facility] [address] [id number] [place] [address] Aug, [facility] [place] [facility] [address] [id number] [place] [address] Jul, [facility] [place] [facility] [address] [id number] [place] [address] Jul, [facility] [place] [facility] [address] [id number] [place] [address] Jun, [facility] [address] [id number] [place] [address] Jun, [facility] [place] [facility] [address] [id number] [place] [address] May, [facility] [place] [facility] [address] [id number] [place] [address] May, [facility] [place] [facility] [address] [id number] [place] [address] May, [facility] [place] [facility] [address] [id number] [place] [address] May, [facility] [place] [facility] [address] [id number] [place] [address] Apr, [facility] [place] [facility] [address] [id number] [place] [address] Apr, [facility] [place] [facility] [address] [id number] [place] [address] Apr, [facility] [place] [facility] [address] [id number] [place] [address] Apr, [facility] [place] [facility] [address] [id number] [place] [address] Apr, [facility] [place] [facility] [address] [id number] [place] [address] Apr, [facility] [place] [facility] [address] [id number] [place] [address] Apr, [facility] [place] [facility] [address] [id number] [place] [address] Apr, [facility] [place] [facility] [address] [id number] [place] [address] Apr, [facility] [place] [facility] [address] [id number] [place] [address] Mar, [facility] [place] [facility] [address] [id number] [place] [address] Mar, [facility] [place] [facility] [address] [id number] [place] [address] Feb, [facility] [place] [facility] [address] [id number] [place] [address] Jan, [facility] [place] [facility] [address] [id number] [place] [address] Jan, [facility] [place] [facility] [address] [id number] [place] [address] Dec, [facility] [place] [facility] [address] [id number] [place] [address] Nov, [facility] [place] [facility] [address] [id number] [place] [address] Nov, [facility] [place] [facility] [address] [id number] [place] [address] October, [facility] [place] [facility] [address] [id number] [place] [address] October, [facility] [place] [facility] [address] [id number] [place] [address] Sep, [facility] [place] [facility] [address] [id number] [place] [address] Sep, [facility] [place] [facility] [address] [id number] [place] [address] May, [facility] [place] [facility] [address] [id number] [place] [address] Apr, [facility] [place] [facility] [address] [id number] [place] [address] Apr, [facility] [place] [facility] [address] [id number] [place] [address] Apr, [facility] [place] [facility] [address] [id number] [place] [address] Apr, [facility] [place] [facility] [address] [id number] [place] [address] Apr, [facility] [place] [facility] [address] [id number] [place] [address] Apr, [facility] [place] [facility] [address] [id number] [place] [address] Apr, [facility] [place] [facility] [address] [id number] [place] [address] Apr, [facility] [place] [facility] [address] [id number], [place] [address] Mar, [facility] [place] [facility] [address] [id number], [place] [address] Mar, [facility] [place] [facility] [address] [id number] [place] [address] Mar, [facility] [place] [facility] [address] [id number] [place] [address] Mar, [facility] [place] [facility] [address] [id number] [place] [address] Mar, [facility] [place] [facility] [address] [facility] [id number] [place] [address] Mar, IMMUNIZATIONS No Known Immunizations SOCIAL HISTORY Never Assessed REASON FOR VISIT new labs PLAN OF CARE VITAL SIGNS MEDICATIONS Unknown Medications RESULTS No Results PROCEDURES No Known procedures INSTRUCTIONS MEDICATIONS ADMINISTERED No Known Medications MEDICAL (GENERAL) HISTORY Type Description Date Medical History HTN Medical History Depression Medical History Arthritis Surgical History Breast lump removed Surgical History Removal of cyst from ovary Surgical History cholecystectomy Surgical History Stomach surgeryx3 Hospitalization History [facility] floor [facility]
--- OUTSIDE RECORDS SUMMARY | 2018-10-27 16:09 | XMS REPORT ---
Author Author ERIC BINGHAM [facility] Address [address] [place] [address] Care Team Providers Care Ladies Locker Room Attendant Name Role Phone ERIC BINGHAM Unavailable PROBLEMS Type Condition ICD9-CM Code LHX34-PD Code Onset Dates Condition Status SNOMED Code Problem Presbyopia H52.4 Active 24193985 Problem Unspecified open-angle glaucoma, stage unspecified H40.10X0 Feb, Active 53579229 Problem Nondependent 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 Active 206841288 Problem Unspecified epilepsy without mention of intractable epilepsy G40.909 Active 99309131 Problem Chronic tension-type headache, intractable G44.221 Active 033281433 Problem Other chronic pain G89.29 Active 125206952 Problem Goiter E04.9 Active 4875950 Problem Hypertension I10 Active 98566051 Problem Multinodular goiter E04.2 Active 042103637 Problem Cough R05 Active 43670066 Problem Acquired hypothyroidism E03.9 Active 773173585 Problem Abnormal laboratory test R89.9 Active 061696483 Problem Urge incontinence of urine N39.41 Active 76337255 Problem Esophageal reflux K21.9 Active 118670004 Problem Rheumatoid arthritis M06.9 Active 04513859 Problem Hyperlipidemia, unspecified E78.5 Active 61231161 Problem Chronic obstructive pulmonary disease, unspecified COPD type J44.9 Active 51961555 Problem Carpal tunnel syndrome of left wrist G56.02 Active 447448644299589 Problem BMI 40.0-44.9, adult Z68.41 Active 404943736 Problem Reactive airway disease without complication, unspecified asthma severity, unspecified whether persistent J45.909 Active 963194862996 Problem Right-sided low back pain without sciatica M54.5 Active 999874156 Problem Arthralgia M25.50 Active 73938748 Problem Depressive disorder F32.9 Active 49153421 Problem Depression F32.9 Active 56823850 Problem Thyroid nodule E04.1 Active 500795670 Problem Neuropathy G62.9 Active 433053734 Problem Insomnia G47.00 Active 939341968 Problem Anxiety disorder, unspecified F41.9 Active 227413845 ALLERGIES No Information ENCOUNTERS Encounter Location Date Diagnosis [facility] [id number] [place] [address] Apr, Abnormal laboratory test R89.9 [facility] [id number] [place] [address] Apr, Abnormal laboratory test R89.9 [facility] [id number] [place] [address] Apr, Abnormal laboratory test R89.9 [facility] [id number] [place] [address] Apr, [facility] [id number] [place] [address] Apr, [facility] [id number] [place] [address] Apr, Nonintractable episodic headache, unspecified headache type R51 ; Urge incontinence of urine N39.41 ; BMI 40.0-44.9, adult Z68.41 ; Myalgia M79.10 and Acute cystitis without hematuria N30.00 [place] [facility] [id number] [place] [address] Mar, Nasal congestion R09.81 ; Low back pain M54.5 ; Reactive airway disease without complication, unspecified asthma severity, unspecified whether persistent J45.909 ; Other chronic pain G89.29 ; Acute cystitis with hematuria N30.01 and BMI 40.0-44.9, adult Z68.41 [facility] [id number] [place] [address] Mar, Acute cystitis with hematuria N30.01 [facility] [id number] [place] [address] Mar, BMI 40.0-44.9, adult Z68.41 ; Acute cystitis with hematuria N30.01 ; Acute bilateral low back pain without sciatica M54.5 and Nausea R11.0 [place] [address] [address] 17 Mar, 2018 Hypertension I10 ; Acquired hypothyroidism E03.9 ; Esophageal reflux K21.9 ; Chronic obstructive pulmonary disease, unspecified COPD type J44.9 and BMI 40.0-44.9, adult Z68.41 [place] [address] [address] 15 Mar, 2018 Hypertension I10 [address] [address] Nov, Hyperlipidemia, unspecified E78.[address] [address] October, Chest pain, unspecified type R07.9 and Acquired hypothyroidism E03.9 [place] [id number] [place] [address] October, Chest pain, unspecified type R07.9 ; Family history of coronary artery disease Z82.49 ; Carpal tunnel syndrome of left wrist G56.02 ; Hypertension I10 ; Esophageal reflux K21.9 ; Arthralgia M25.50 ; Acquired hypothyroidism E03.9 ; Cough R05 ; Nausea R11.0 ; Weight gain R63.5 and BMI 45.0-49.9, adult Z68.42 [place] [id number] [place] [address] Jun, Acquired hypothyroidism E03.9 and Cough R05 [address] [address] May, [address] [address] Feb, Tarsal tunnel syndrome of both lower extremities G57.53 and Neuropathy G62.[address] [place] [address] Dec, Pleuritis R09.1 [place] [address] [address] Nov, [place] [address] [address] October, Arthralgia, unspecified joint M25.50 and Allergy, initial encounter T78.40XA [place] [address] [address] October, [place] [address] [address] October, Acute recurrent maxillary sinusitis J01.01 and Arthralgia M25.50 [place] [address] [address] Sep, Pharyngitis due to other organism J02.8 [place] [id number] [place] [address] Aug, Acute nasopharyngitis J00 [place] [address] [address] Aug, Multinodular goiter E04.2 [place] [id number] [place] [address] Aug, Thyroid nodule E04.1 [place] [id number] [place] [address] Jul, Tarsal tunnel syndrome of both lower extremities G57.53 [place] [facility] [id number] [place] [address] Jun, Pneumonia due to infectious organism, unspecified laterality, unspecified part of lung J18.9 [place] [id number] [place] [address] Jun, Bronchospasm with bronchitis, acute J20.9 [place] [id number] [place] [address] May, Acute non-recurrent frontal sinusitis J01.10 [place] [address] [address] May, Flat foot [pes planus] (acquired), left foot M21.42 ; Flat foot [pes planus] (acquired), right foot M21.41 and Neuropathy G62.9 [place] [address] [address] Apr, Chronic tension-type headache, intractable G44.221 ; Right lower quadrant abdominal pain R10.31 ; Cervicalgia M54.2 ; Acute gastritis without hemorrhage, unspecified gastritis type K29.00 and Hypertension I10 [address] [address] Mar, Depression F32.9 and Anxiety disorder, unspecified F41.9 [place] [address] [address] Feb, Depressive disorder F32.9 and Anxiety disorder, unspecified F41.[address] [address] Jan, Dysuria R30.0 ; Lower abdominal pain R10.30 ; Acute bilateral low back pain without sciatica M54.5 ; Nausea and vomiting, unspecified intactability, vomiting of unspecified type R11.2 ; Pain in right foot M79.671 and Pain of left foot M79.672 [place] [address] [address] Dec, Urinary tract infection, site not specified N39.0 [place] [address] [address] Dec, [place] [address] [address] Nov, [place] [address] [place] [address] Nov, Dysuria R30.0 [place] [address] [address] Nov, Dysuria R30.0 and Acute cystitis with hematuria N30.01 [place] [address] [address] October, Nausea R11.0 [place] [address] [address] October, Thyroid nodule E04.1 ; Carpal tunnel syndrome, left upper limb G56.02 ; Carpal tunnel syndrome, right upper limb G56.01 and Constipation, unspecified constipation type K59.00 [place] [id number] [place] [address] October, [place] [address] [address] October, Thyroid nodule E04.1 [place] [id number] [place] [address] October, Cold thyroid nodule E04.1 [place] [id number] [place] [address] October, [place] [id number] [place] [address] Sep, Thyroid nodule E04.1 [place] [id number] [place] [address] Sep, Thyroid nodule E04.1 [place] [id number] [place] [address] Sep, Thyroid nodule E04.1 ; Hypertension I10 ; Esophageal reflux K21.9 and Hyperlipidemia, unspecified E78.5 [place] [id number] [place] [address] Aug, Other chronic pain G89.29 ; Sinusitis J32.9 and Hypertension I10 [place] [id number] [place] [address] 29 Jul, 2015 [place] [id number] [place] [address] 15 Jul, 2015 [place] [id number] [place] [address] 10 Jul, 2015 Insomnia G47.00 and Arthralgia M25.50 [place] [id number] [place] [address] 10 Jul, 2015 Depressive disorder F32.9 and Anxiety disorder, unspecified F41.9 [place] [id number] [place] [address] May, Right-sided low back pain without sciatica M54.5 and Depression F32.9 [place] [id number] [place] [address] Apr, Hematuria R31.9 [place] [id number] [place] [address] Mar, Other chronic pain G89.29 [place] [id number] [place] [address] Mar, Other chronic pain G89.29 [place] [id number] [place] [address] 28 Feb, 2015 [place] [id number] [place] [address] 22 Feb, 2015 Other chronic pain 338.29 ; Dysuria 788.1 ; UTI (urinary tract infection) 599.0 ; Insomnia 780.52 ; Hot flashes 627.2 and Hypertension 401.9 [place] [address] [place] [address] 14 Feb, 2015 Dysuria 788.1 [place] [id number] [place] [address] Feb, [facility] [address] [facility] [id number] [address] Jan, [facility] [address] [id number] [address] Jan, [facility] [address] [address] Jan, Fibromyalgia 729.1 ; Hypertension 401.9 ; Dysthymia 300.4 and Hot flashes 627.2 [facility] [address] [facility] [id number], [place] [address] Dec, [facility] [address] [facility] [id number] [place] [address] Dec, [facility] [address], [place] [address] Dec, [facility] [address], [place] [address] Nov, Other chronic pain 338.29 [facility] [address], [place] [address] October, [facility] [address], [place] [address] October, [facility] [id number], [place] [address] Sep, [facility] [id number] [address] Sep, [facility] [id number] [address] Aug, [facility] [address] [facility] [id number], [place] [address] Aug, [facility] [address] [address] Aug, [facility] [address] [facility] [id number] [place] [address] Aug, [facility] [place] [facility] [address] [id number] [place] [address] Aug, [facility] [place] [facility] [address] [id number] [place] [address] Aug, [facility] [place] [facility] [address] [id number] [place] [address] Aug, [facility] [place] [facility] [address] [id number] [place] [address] Aug, [facility] [place] [facility] [address] [id number] [place] [address] Aug, [facility] [place] [facility] [address] [id number] [place] [address] Aug, [facility] [place] [facility] [address] [id number] [place] [address] Aug, [facility] [place] [facility] [address] [id number] [place] [address] Aug, [facility] [place] [facility] [address] [id number] [place] [address] Aug, [facility] [place] [facility] [address] [id number] [place] [address] Aug, [facility] [place] [facility] [address] [id number] [place] [address] Jul, 2014 [facility] [place] [facility] [address] [id number] [place] [address] Jul, [facility] [place] [facility] [address] [id number] [place] [address] Jul, [facility] [place] [facility] [address] [id number] [place] [address] Jul, 2014 [facility] [place] [facility] [address] [id number] [place] [address] Jul, [facility] [place] [facility] [address] [id number] [place] [address] Jul, [facility] [place] [facility] [address] [id number] [place] [address] Jun, [facility] [place] [facility] [address] [facility] [id number] [place] [address] Jun, [facility] [place] [facility] [address] [id number] [place] [address] Jun, [facility] [place] [facility] [address] [id number] [place] [address] Jun, [facility] [place] [facility] [address] [id number] [place] [address] May, [facility] [place] [facility] [address] [id number] [place] [address] May, [facility] [place] [facility] [address] [id number] [place] [address] May, [facility] [place] [facility] [address] [id number] [place] [address] May, [facility] [place] [facility] [address] [id number] [place] [address] May, [facility] [place] [facility] [address] [id number] [place] [address] May, [facility] [place] [facility] [address] [id number], [place] [address] May, [facility] [place] [facility] [address] [id number] [place] [address] May, [facility] [place] [facility] [address] [facility] [id number] [place] [address] May, [facility] [place] [facility] [address] [facility] [id number] [place] [address] May, [facility] [place] [facility] [address] [id number] [place] [address] Apr, [facility] [place] [facility] [address] [id number] [place] [address] Apr, [facility] [place] [facility] [address] [id number] [place] [address] Apr, [facility] [place] [facility] [address] [id number] [place] [address] Apr, [facility] [place] [facility] [address] [id number] [place] [address] Apr, [facility] [place] [facility] [address] [id number] [place] [address] Apr, [facility] [place] [facility] [address] [id number] [place] [address] Apr, [facility] [place] [facility] [address] [id number] [place] [address] Apr, [facility] [place] [facility] [address] [id number] [place] [address] Apr, [facility] [place] [facility] [address] [id number] [place] [address] Mar, [facility] [place] [facility] [address] [id number] [place] [address] Mar, [facility] [place] [facility] [address] [id number] [place] [address] Mar, [facility] [place] [facility] [address] [id number] [place] [address] Mar, [facility] [place] [facility] [address] [id number] [place] [address] Mar, [facility] [place] [facility] [address] [id number] [place] [address] Mar, [facility] [place] [facility] [address] [id number] [place] [address] Mar, [facility] [place] [facility] [address] [id number] [place] [address] 08 Mar, 2013 [facility] [place] [facility] [address] [id number] [place] [address] 30 Feb, 2013 [facility] [place] [facility] [address] [id number] [place] [address] 30 Feb, 2013 [facility] [place] [facility] [address] [id number] [place] [address] 24 Feb, 2013 [facility] [place] [facility] [address] [id number] [place] [address] 24 Feb, 2013 [facility] [place] [facility] [address] [id number] [place] [address] 22 Feb, 2013 [facility] [place] [facility] [address] [id number] [place] [address] 22 Feb, 2013 [facility] [place] [facility] [address] [id number] [place] [address] 10 Feb, 2013 [facility] [place] [facility] [address] [id number] [place] [address] 10 Feb, 2013 [facility] [place] [facility] [address] [id number] [place] [address] 03 Feb, 2013 [facility] [place] [facility] [address] [id number] [place] [address] 03 Sep, 2013 [facility] [place] [facility] [address] [id number], [place] [address] 03 Sep, 2013 [facility] [place] [facility] [address] [id number] [place] [address] 03 Sep, 2013 [facility] [place] [facility] [address] [id number] [place] [address] 03 Sep, 2013 [facility] [place] [facility] [address] [id number] [place] [address] 03 Sep, 2013 [facility] [place] [facility] [address] [id number] [place] [address] Jan, [facility] [place] [facility] [address] [id number] [place] [address] Jan, [facility] [place] [facility] [address] [id number] [place] [address] Dec, [facility] [place] [facility] [address] [id number] [place] [address] Dec, [facility] [place] [facility] [address] [id number] [place] [address] Dec, [facility] [place] [facility] [address] [id number] [place] [address] Dec, [facility] [place] [facility] [address] [id number] [place] [address] Dec, [facility] [place] [facility] [address] [id number] [place] [address] Dec, [facility] [place] [facility] [address] [id number] [place] [address] Dec, [facility] [place] [facility] [address] [id number] [place] [address] Dec, [facility] [place] [facility] [address] [id number] [place] [address] Dec, [facility] [place] [facility] [address] [id number] [place] [address] Dec, [facility] [place] [facility] [address] [id number] [place] [address] Dec, [facility] [place] [facility] [address] [id number] [place] [address] Dec, [facility] [place] [facility] [address] [id number] [place] [address] Dec, [facility] [place] [facility] [address] [id number] [place] [address] Dec, [facility] [place] [facility] [address] [id number] [place] [address] Dec, [facility] [place] [facility] [address] [id number] [place] [address] Dec, [facility] [place] [facility] [address] [id number] [place] [address] Dec, [facility] [place] [facility] [address] [id number] [place] [address] Dec, [facility] [place] [facility] [address] [id number] [place] [address] Dec, [facility] [place] [facility] [address] [id number] [place] [address] Nov, [facility] [place] [facility] [address] [id number] [place] [address] Nov, [facility] [place] [facility] [address] [id number] [place] [address] Nov, [facility] [place] [facility] [address] [id number] [place] [address] Nov, [facility] [place] [facility] [address] [id number] [place] [address] Nov, [facility] [place] [facility] [address] [id number] [place] [address] Nov, [facility] [place] [facility] [address] [id number] [place] [address] Nov, [facility] [place] [facility] [address] [id number] [place] [address] Nov, [facility] [place] [facility] [address] [id number] [place] [address] Nov, [facility] [place] [facility] [address] [id number] [place] [address] October, [facility] [place] [facility] [address] [id number] [place] [address] October, [facility] [address] [id number] [place] [address] October, [facility] [place] [facility] [address] [id number] [place] [address] October, [facility] [place] [facility] [address] [id number] [place] [address] October, [facility] [place] [facility] [address] [id number] [place] [address] October, [facility] [place] [facility] [address] [id number] [place] [address] October, [facility] [place] [facility] [address] [id number] [place] [address] October, [facility] [place] [facility] [address] [id number] [place] [address] Sep, [facility] [place] [facility] [address] [id number] [place] [address] Sep, [facility] [place] [facility] [address] [id number] [place] [address] Sep, [facility] [place] [facility] [address] [id number] [place] [address] Sep, [facility] [place] [facility] [address] [id number] [place] [address] Sep, [facility] [place] [facility] [address] [id number] [place] [address] Sep, [facility] [place] [facility] [address] [id number] [place] [address] Sep, [facility] [place] [facility] [address] [id number] [place] [address] Aug, [facility] [place] [facility] [address] [id number] [place] [address] Aug, [facility] [place] [facility] [address] [id number] [place] [address] Aug, [facility] [address] [id number] [place] [address] Aug, [facility] [place] [facility] [address] [id number] [place] [address] Aug, [facility] [place] [facility] [address] [id number] [place] [address] Aug, [facility] [place] [facility] [address] [id number] [place] [address] Jul, [facility] [place] [facility] [address] [id number] [place] [address] Jul, [facility] [place] [facility] [address] [id number] [place] [address] Jul, [facility] [place] [facility] [address] [id number] [place] [address] Jul, [facility] [place] [facility] [address] [id number] [place] [address] Jul, [facility] [place] [facility] [address] [id number] [place] [address] Jul, [facility] [place] [facility] [address] [id number] [place] [address] Jun, [facility] [place] [facility] [address] [id number] [place] [address] Jun, [facility] [place] [facility] [address] [id number] [place] [address] Jun, [facility] [place] [facility] [address] [id number] [place] [address] Jun, [facility] [place] [facility] [address] [id number] [place] [address] Jun, [facility] [place] [facility] [address] [id number] [place] [address] Jun, [facility] [place] [facility] [address] [id number] [place] [address] Jun, [facility] [address] [id number] [place] [address] Jun, [facility] [place] [facility] [address] [id number] [place] [address] 16 Jun, 2013 [facility] [place] [facility] [address] [id number] [place] [address] Jun, [facility] [address] [id number] [place] [address] Jun, [facility] [place] [facility] [address] [id number] [place] [address] Jun, [facility] [address] [id number] [place] [address] Jun, [facility] [address] [id number] [place] [address] 30 May, 2013 [facility] [place] [facility] [address] [id number] [place] [address] 30 May, 2013 [facility] [place] [facility] [address] [id number] [place] [address] 30 May, 2013 [facility] [place] [facility] [address] [id number] [place] [address] 30 May, 2013 [facility] [place] [facility] [address] [id number] [place] [address] 26 May, 2013 [facility] [place] [facility] [address] [id number] [place] [address] May, [facility] [place] [facility] [address] [id number] [place] [address] May, [facility] [place] [facility] [address] [id number] [place] [address] 12 May, 2013 [facility] [place] [facility] [address] [id number], [place] [address] May, [facility] [address] [id number] [place] [address] May, [facility] [place] [facility] [address] [id number] [place] [address] May, [facility] [place] [facility] [address] [id number] [place] [address] May, [facility] [place] [facility] [address] [id number] [place] [address] May, [facility] [place] [facility] [address] [id number] [place] [address] May, [facility] [place] [facility] [address] [id number] [place] [address] May, [facility] [address] [facility] [id number] [place] [address] May, [facility] [place] [facility] [address] [id number] [place] [address] May, [facility] [place] [facility] [address] [id number] [place] [address] May, [facility] [place] [facility] [address] [id number] [place] [address] May, [facility] [place] [facility] [address] [id number], [place] [address] May, [facility] [place] [facility] [address] [id number], [place] [address] May, [facility] [place] [facility] [address] [id number] [place] [address] Apr, [facility] [place] [facility] [address] [id number] [place] [address] Apr, [facility] [place] [facility] [address] [id number] [place] [address] Apr, [facility] [place] [facility] [address] [id number] [place] [address] Apr, [facility] [address] [id number] [place] [address] 08 Mar, 2013 [facility] [place] [facility] [address] [id number] [place] [address] 23 Feb, 2012 [facility] [place] [facility] [address] [id number] [place] [address] 16 Feb, 2012 [facility] [place] [facility] [address] [id number] [place] [address] 13 Feb, 2013 [facility] [place] [facility] [address] [id number] [place] [address] 10 Feb, 2013 [facility] [place] [facility] [address] [id number] [place] [address] 09 Feb, 2013 [facility] [place] [facility] [address] [id number] [place] [address] Feb, [facility] [place] [facility] [address] [id number] [place] [address] Jan, [facility] [place] [facility] [address] [id number] [place] [address] Jan, [facility] [place] [facility] [address] [id number] [place] [address] Jan, [facility] [place] [facility] [address] [id number] [place] [address] Dec, [facility] [place] [facility] [address] [id number] [place] [address] Dec, [facility] [place] [facility] [address] [id number] [place] [address] Dec, [facility] [place] [facility] [address] [id number] [place] [address] Dec, [facility] [place] [facility] [address] [id number] [place] [address] Dec, [facility] [address] [id number] [place] [address] Nov, [facility] [place] [facility] [address] [id number] [place] [address] Nov, [facility] [place] [facility] [address] [id number] [place] [address] Nov, [facility] [place] [facility] [address] [id number] [place] [address] Nov, [facility] [place] [facility] [address] [id number] [place] [address] Nov, [facility] [place] [facility] [address] [id number] [place] [address] Nov, [facility] [place] [facility] [address] [id number] [place] [address] Nov, [facility] [place] [facility] [address] [id number] [place] [address] Nov, [facility] [place] [facility] [address] [id number] [place] [address] Nov, [facility] [place] [facility] [address] [id number], [place] [address] Nov, [facility] [place] [facility] [address] [id number] [place] [address] October, [facility] [place] [facility] [address] [id number], [place] [address] October, [facility] [place] [facility] [address] [id number] [place] [address] Sep, [facility] [place] [facility] [address] [id number], [place] [address] Sep, [facility] [place] [facility] [address] [id number] [place] [address] Sep, [facility] [place] [facility] [address] [id number] [place] [address] 06 Sep, 2012 [facility] [address] [id number] [place] [address] Sep, [facility] [place] [facility] [address] [id number] [place] [address] Aug, [facility] [place] [facility] [address] [id number] [place] [address] Aug, [facility] [place] [facility] [address] [id number] [place] [address] Jul, [facility] [place] [facility] [address] [id number] [place] [address] Jul, [facility] [place] [facility] [address] [id number] [place] [address] Jun, [facility] [address] [id number] [place] [address] Jun, [facility] [place] [facility] [address] [id number] [place] [address] May, [facility] [place] [facility] [address] [id number] [place] [address] May, [facility] [place] [facility] [address] [id number] [place] [address] May, [facility] [place] [facility] [address] [id number] [place] [address] May, [facility] [place] [facility] [address] [id number] [place] [address] Apr, [facility] [place] [facility] [address] [id number] [place] [address] Apr, [facility] [place] [facility] [address] [id number] [place] [address] Apr, [facility] [place] [facility] [address] [id number] [place] [address] Apr, [facility] [place] [facility] [address] [id number] [place] [address] Apr, [facility] [place] [facility] [address] [id number] [place] [address] Apr, [facility] [place] [facility] [address] [id number] [place] [address] Apr, [facility] [place] [facility] [address] [id number] [place] [address] Apr, [facility] [place] [facility] [address] [id number] [place] [address] Apr, [facility] [place] [facility] [address] [id number] [place] [address] Mar, [facility] [place] [facility] [address] [id number] [place] [address] Mar, [facility] [place] [facility] [address] [id number] [place] [address] Feb, [facility] [place] [facility] [address] [id number] [place] [address] Jan, [facility] [place] [facility] [address] [id number] [place] [address] Jan, [facility] [place] [facility] [address] [id number] [place] [address] Dec, [facility] [place] [facility] [address] [id number] [place] [address] Nov, [facility] [place] [facility] [address] [id number] [place] [address] Nov, [facility] [place] [facility] [address] [id number] [place] [address] October, [facility] [place] [facility] [address] [id number] [place] [address] October, [facility] [place] [facility] [address] [id number] [place] [address] Sep, [facility] [place] [facility] [address] [id number] [place] [address] Sep, [facility] [place] [facility] [address] [id number] [place] [address] May, [facility] [place] [facility] [address] [id number] [place] [address] Apr, [facility] [place] [facility] [address] [id number] [place] [address] Apr, [facility] [place] [facility] [address] [id number] [place] [address] Apr, [facility] [place] [facility] [address] [id number] [place] [address] Apr, [facility] [place] [facility] [address] [id number] [place] [address] Apr, [facility] [place] [facility] [address] [id number] [place] [address] Apr, [facility] [place] [facility] [address] [id number] [place] [address] Apr, [facility] [place] [facility] [address] [id number] [place] [address] Apr, [facility] [place] [facility] [address] [id number], [place] [address] Mar, [facility] [place] [facility] [address] [id number], [place] [address] Mar, [facility] [place] [facility] [address] [id number] [place] [address] Mar, [facility] [place] [facility] [address] [id number] [place] [address] Mar, [facility] [place] [facility] [address] [id number] [place] [address] Mar, [facility] [place] [facility] [address] [facility] [id number] [place] [address] Mar, IMMUNIZATIONS No Known Immunizations SOCIAL HISTORY Never Assessed REASON FOR VISIT Lab (walk-in) PLAN OF CARE Activity Details Pending Test CMP Pending Test CBC Pending Test CRP VITAL SIGNS MEDICATIONS Unknown Medications RESULTS No Results PROCEDURES Procedure Date Ordered Result Body Site COMPREHEN METABOLIC PANEL May 11, 2018 COMPLETE CBC W/AUTO DIFF WBC May 11, 2018 C-REACTIVE PROTEIN May 11, 2018 INSTRUCTIONS MEDICATIONS ADMINISTERED No Known Medications MEDICAL (GENERAL) HISTORY Type Description Date Medical History HTN Medical History Depression Medical History Arthritis Surgical History Breast lump removed Surgical History Removal of cyst from ovary Surgical History cholecystectomy Surgical History Stomach surgeryx3 Hospitalization History Mental floor at [facility]
--- OUTSIDE RECORDS SUMMARY | 2018-10-27 16:09 | XMS REPORT ---
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 Name Role Phone ERIC BINGHAM Unavailable PROBLEMS Type Condition ICD9-CM Code IWL38-ZG Code Onset Dates Condition Status SNOMED Code Problem Presbyopia H52.4 Active 53560933 Problem Unspecified open-angle glaucoma, stage unspecified H40.10X0 Feb, Active 39910744 Problem Nondependent 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 Active 257845752 Problem Unspecified epilepsy without mention of intractable epilepsy G40.909 Active 99036803 Problem Chronic tension-type headache, intractable G44.221 Active 971482727 Problem Other chronic pain G89.29 Active 670488439 Problem Goiter E04.9 Active 6512632 Problem Hypertension I10 Active 22652814 Problem Multinodular goiter E04.2 Active 379257740 Problem Cough R05 Active 43368162 Problem Acquired hypothyroidism E03.9 Active 601649147 Problem Abnormal laboratory test R89.9 Active 443690392 Problem Urge incontinence of urine N39.41 Active 65295936 Problem Esophageal reflux K21.9 Active 484420235 Problem Rheumatoid arthritis M06.9 Active 56022654 Problem Hyperlipidemia, unspecified E78.5 Active 48047157 Problem Chronic obstructive pulmonary disease, unspecified COPD type J44.9 Active 29506438 Problem Carpal tunnel syndrome of left wrist G56.02 Active [id number] Problem BMI 40.0-44.9, adult Z68.41 Active 919716795 Problem Reactive airway disease without complication, unspecified asthma severity, unspecified whether persistent J45.909 Active 074206376664 Problem Right-sided low back pain without sciatica M54.5 Active 712270741 Problem Arthralgia M25.50 Active 07759209 Problem Depressive disorder F32.9 Active 83636339 Problem Depression F32.9 Active 32932178 Problem Thyroid nodule E04.1 Active 966964050 Problem Neuropathy G62.9 Active 393559353 Problem Insomnia G47.00 Active 999458698 Problem Anxiety disorder, unspecified F41.9 Active 661537345 ALLERGIES No Information ENCOUNTERS Encounter Location Date Diagnosis [facility] [id number] [place] [address] Apr, Abnormal laboratory test R89.9 [facility] [id number] [place] [address] Apr, [place] [id number] [place] [address] Apr, [place] [address] [address] Apr, Nonintractable episodic headache, unspecified headache type R51 ; Urge incontinence of urine N39.41 ; BMI 40.0-44.9, adult Z68.41 ; Myalgia M79.10 and Acute cystitis without hematuria N30.00 [place] [id number] [place] [address] Mar, Nasal congestion R09.81 ; Low back pain M54.5 ; Reactive airway disease without complication, unspecified asthma severity, unspecified whether persistent J45.909 ; Other chronic pain G89.29 ; Acute cystitis with hematuria N30.01 and BMI 40.0-44.9, adult Z68.41 [facility] [id number] [place] [address] Mar, Acute cystitis with hematuria N30.01 [facility] [id number] [place] [address] Mar, BMI 40.0-44.9, adult Z68.41 ; Acute cystitis with hematuria N30.01 ; Acute bilateral low back pain without sciatica M54.5 and Nausea R11.0 [facility] [id number] [place] [address] Mar, Hypertension I10 ; Acquired hypothyroidism E03.9 ; Esophageal reflux K21.9 ; Chronic obstructive pulmonary disease, unspecified COPD type J44.9 and BMI 40.0-44.9, adult Z68.41 [place] [address] [address] Mar, Hypertension I10 [place] [address] [address] Nov, Hyperlipidemia, unspecified E78.5 [place] [address] [address] October, Chest pain, unspecified type R07.9 and Acquired hypothyroidism E03.9 [place] [address] [address] October, Chest pain, unspecified type R07.9 ; Family history of coronary artery disease Z82.49 ; Carpal tunnel syndrome of left wrist G56.02 ; Hypertension I10 ; Esophageal reflux K21.9 ; Arthralgia M25.50 ; Acquired hypothyroidism E03.9 ; Cough R05 ; Nausea R11.0 ; Weight gain R63.5 and BMI 45.0-49.9, adult Z68.42 [place] [address] [address] Jun, Acquired hypothyroidism E03.9 and Cough R05 [place] [address] [address] May, [place] [address] [address] Feb, Tarsal tunnel syndrome of both lower extremities G57.53 and Neuropathy G62.9 [place] [address] [address] Dec, Pleuritis R09.1 [place] [address] [address] Nov, [place] [address] [address] October, Arthralgia, unspecified joint M25.50 and Allergy, initial encounter T78.40XA [place] [address] [address] October, [place] [id number] [place] [address] October, Acute recurrent maxillary sinusitis J01.01 and Arthralgia M25.50 [place] [id number] [place] [address] Sep, Pharyngitis due to other organism J02.8 [place] [address] [address] Aug, Acute nasopharyngitis J00 [address] [address] Aug, Multinodular goiter E04.2 [place] [id number] [place] [address] Aug, Thyroid nodule E04.1 [id number] [place] [address] Jul, Tarsal tunnel syndrome of both lower extremities G57.53 [address] [id number] [place] [address] Jun, Pneumonia due to infectious organism, unspecified laterality, unspecified part of lung J18.9 [place] [id number] [place] [address] Jun, Bronchospasm with bronchitis, acute J20.9 [id number] [place] [address] May, Acute non-recurrent frontal sinusitis J01.10 [address] [id number] [place] [address] May, Flat foot [pes planus] (acquired), left foot M21.42 ; Flat foot [pes planus] (acquired), right foot M21.41 and Neuropathy G62.9 [place] [address] [address] Apr, Chronic tension-type headache, intractable G44.221 ; Right lower quadrant abdominal pain R10.31 ; Cervicalgia M54.2 ; Acute gastritis without hemorrhage, unspecified gastritis type K29.00 and Hypertension I10 [place] [address] [address] Mar, Depression F32.9 and Anxiety disorder, unspecified F41.9 [place] [address] [address] Feb, Depressive disorder F32.9 and Anxiety disorder, unspecified F41.[address] [address] Jan, Dysuria R30.0 ; Lower abdominal pain R10.30 ; Acute bilateral low back pain without sciatica M54.5 ; Nausea and vomiting, unspecified intactability, vomiting of unspecified type R11.2 ; Pain in right foot M79.671 and Pain of left foot M79.672 [place] [address] [address] Dec, Urinary tract infection, site not specified N39.0 [place] [address] [address] Dec, [place] [address] [address] Nov, [place] [address] [address] Nov, Dysuria R30.0 [place] [address] [address] Nov, Dysuria R30.0 and Acute cystitis with hematuria N30.01 [place] [id number] [place] [address] October, Nausea R11.0 [place] [address] [address] October, Thyroid nodule E04.1 ; Carpal tunnel syndrome, left upper limb G56.02 ; Carpal tunnel syndrome, right upper limb G56.01 and Constipation, unspecified constipation type K59.00 [place] [address] [address] October, [place] [address] [address] October, Thyroid nodule E04.1 [place] [address] [address] October, Cold thyroid nodule E04.1 [place] [address] [address] October, [place] [id number] [place] [address] Sep, Thyroid nodule E04.1 [place] [address] [address] Sep, Thyroid nodule E04.1 [place] [id number] [place] [address] Sep, Thyroid nodule E04.1 ; Hypertension I10 ; Esophageal reflux K21.9 and Hyperlipidemia, unspecified E78.5 [place] [id number] [place] [address] 14 Aug, 2015 Other chronic pain G89.29 ; Sinusitis J32.9 and Hypertension I10 [place] [id number] [place] [address] 29 Jul, 2015 [place] [id number] [place] [address] 15 Jul, 2015 [place] [id number] [place] [address] Jul, Insomnia G47.00 and Arthralgia M25.50 [place] [id number] [place] [address] 10 Jul, 2015 Depressive disorder F32.9 and Anxiety disorder, unspecified F41.9 [place] [id number] [place] [address] May, Right-sided low back pain without sciatica M54.5 and Depression F32.9 [place] [id number] [place] [address] Apr, Hematuria R31.9 [place] [id number] [place] [address] Mar, Other chronic pain G89.29 [place] [address] [address] Mar, Other chronic pain G89.29 [place] [id number] [place] [address] Feb, [place] [id number] [place] [address] Feb, Other chronic pain 338.29 ; Dysuria 788.1 ; UTI (urinary tract infection) 599.0 ; Insomnia 780.52 ; Hot flashes 627.2 and Hypertension 401.9 [place] [id number] [place] [address] 14 Feb, 2015 Dysuria 788.1 [place] [id number] [place] [address] Feb, [place] [id number] [place] [address] Jan, [place] [id number] [place] [address] Jan, [facility] [address] [facility] [id number], [place] [address] Jan, Fibromyalgia 729.1 ; Hypertension 401.9 ; Dysthymia 300.4 and Hot flashes 627.2 [facility] [address] [facility] [id number] [place] [address] Dec, [facility] [id number] [place] [address], [place] [address] Dec, [facility] [address] [facility] [id number] [place] [address] Dec, [facility] [id number] [place] [address], [place] [address] Nov, Other chronic pain 338.29 [facility] [id number] [place] [address] October, [facility] [id number] [place] [address], [place] [address] October, [facility] [id number] [place] [address] Sep, [facility] [id number] [place] [address] Sep, [facility] [id number] [place] [address] Aug, [facility] [address] [address] Aug, [facility] [id number] [place] [address] Aug, [facility] [id number] [place] [address] Aug, [facility] [address] [facility] [id number] [place] [address] Aug, [facility] [address] [address] Aug, [facility] [place] [facility] [address] [id number] [place] [address] Aug, [facility] [place] [facility] [address] [id number] [place] [address] Aug, [facility] [place] [facility] [address] [facility] [id number] [place] [address] Aug, [facility] [place] [facility] [address] [facility] [id number] [place] [address] Aug, [facility] [place] [facility] [address] [id number] [place] [address] Aug, [facility] [place] [facility] [address] [facility] [id number] [place] [address] Aug, [facility] [place] [facility] [address] [facility] [id number] [place] [address] Aug, [facility] [place] [facility] [address] [facility] [id number] [place] [address] Aug, [facility] [place] [facility] [address] [facility] [id number] [place] [address] Jul, [facility] [place] [facility] [address] [facility] [id number] [place] [address] Jul, [facility] [place] [facility] [address] [facility] [id number], [place] [address] Jul, [facility] [place] [facility] [address] [facility] [id number], [place] [address] Jul, [facility] [place] [facility] [address] [facility] [id number] [place] [address] Jul, [facility] [place] [facility] [address] [facility] [id number] [place] [address] Jul, [facility] [place] [facility] [address] [facility] [id number] [place] [address] Jun, [facility] [place] [facility] [address] [id number] [place] [address] 15 Jun, 2014 [facility] [place] [facility] [address] [id number] [place] [address] Jun, [facility] [place] [facility] [address] [id number] [place] [address] Jun, [facility] [place] [facility] [address] [id number] [place] [address] May, [facility] [place] [facility] [address] [id number] [place] [address] May, [facility] [place] [facility] [address] [id number] [place] [address] May, [facility] [place] [facility] [address] [id number] [place] [address] May, [facility] [place] [facility] [address] [id number] [place] [address] May, [facility] [place] [facility] [address] [id number] [place] [address] May, [facility] [place] [facility] [address] [id number] [place] [address] May, [facility] [place] [facility] [address] [id number] [place] [address] May, [facility] [place] [facility] [address] [id number] [place] [address] May, [facility] [place] [facility] [address] [id number] [place] [address] May, [facility] [place] [facility] [address] [id number] [place] [address] Apr, [facility] [place] [facility] [address] [id number] [place] [address] Apr, [facility] [place] [facility] [address] [id number] [place] [address] Apr, [facility] [place] [facility] [address] [id number] [place] [address] Apr, [facility] [place] [facility] [address] [id number] [place] [address] Apr, [facility] [place] [facility] [address] [id number] [place] [address] Apr, [facility] [place] [facility] [address] [id number] [place] [address] Apr, [facility] [place] [facility] [address] [id number] [place] [address] Apr, [facility] [place] [facility] [address] [id number] [place] [address] Apr, [facility] [place] [facility] [address] [id number] [place] [address] Mar, [facility] [place] [facility] [address] [id number], [place] [address] Mar, [facility] [place] [facility] [address] [id number] [place] [address] Mar, [facility] [place] [facility] [address] [id number] [place] [address] Mar, [facility] [place] [facility] [address] [id number], [place] [address] Mar, [facility] [place] [facility] [address] [id number], [place] [address] Mar, [facility] [place] [facility] [address] [id number], [place] [address] Mar, [facility] [place] [facility] [address] [id number], [place] [address] Mar, [facility] [place] [facility] [address] [id number], [place] [address] Feb, [facility] [place] [facility] [address] [id number] [place] [address] 30 Sep, 2013 [facility] [place] [facility] [address] [id number] [place] [address] 24 Sep, 2013 [facility] [place] [facility] [address] [id number] [place] [address] 24 Feb, 2013 [facility] [place] [facility] [address] [id number] [place] [address] 22 Feb, 2013 [facility] [place] [facility] [address] [id number] [place] [address] 22 Feb, 2013 [facility] [place] [facility] [address] [id number] [place] [address] 10 Feb, 2013 [facility] [place] [facility] [address] [id number] [place] [address] 10 Feb, 2013 [facility] [place] [facility] [address] [id number] [place] [address] 03 Feb, 2013 [facility] [place] [facility] [address] [id number] [place] [address] 03 Sep, 2013 [facility] [place] [facility] [address] [id number] [place] [address] 03 Sep, 2013 [facility] [place] [facility] [address] [id number] [place] [address] 03 Sep, 2013 [facility] [place] [facility] [address] [id number] [place] [address] 03 Feb, 2013 [facility] [place] [facility] [address] [id number] [place] [address] Feb, 2013 [facility] [place] [facility] [address] [id number] [place] [address] Jan, [facility] [place] [facility] [address] [id number] [place] [address] Jan, [facility] [place] [facility] [address] [id number] [place] [address] Dec, [facility] [place] [facility] [address] [id number] [place] [address] Dec, [facility] [place] [facility] [address] [id number] [place] [address] Dec, [facility] [place] [facility] [address] [id number] [place] [address] Dec, [facility] [place] [facility] [address] [id number] [place] [id number] Dec, [facility] [place] [facility] [address] [id number] [place] [address] Dec, [facility] [place] [facility] [address] [id number] [place] [address] Dec, [facility] [place] [facility] [address] [id number] [place] [address] Dec, [facility] [place] [facility] [address] [id number] [place] [address] Dec, [facility] [place] [facility] [address] [id number] [place] [address] Dec, [facility] [place] [facility] [address] [id number] [place] [address] Dec, [facility] [place] [facility] [address] [id number] [place] [address] Dec, [facility] [place] [facility] [address] [id number] [place] [address] Dec, [facility] [place] [facility] [address] [id number] [place] [address] Dec, [facility] [place] [facility] [address] [id number] [place] [address] Dec, [facility] [place] [facility] [address] [id number] [place] [address] Dec, [facility] [place] [facility] [address] [id number] [place] [address] Dec, [facility] [place] [facility] [address] [id number] [place] [address] Dec, [facility] [place] [facility] [address] [id number] [place] [address] Dec, [facility] [place] [facility] [address] [id number] [place] [address] Nov, [facility] [place] [facility] [address] [id number] [place] [address] Nov, [facility] [place] [facility] [address] [id number] [place] [address] Nov, [facility] [place] [facility] [address] [id number] [place] [address] Nov, [facility] [place] [facility] [address] [id number] [place] [address] Nov, [facility] [place] [facility] [address] [id number] [place] [address] Nov, [facility] [place] [facility] [address] [id number] [place] [address] Nov, [facility] [place] [facility] [address] [id number] [place] [address] Nov, [facility] [place] [facility] [address] [id number] [place] [address] Nov, [facility] [place] [facility] [address] [id number] [place] [address] October, [facility] [place] [facility] [address] [id number] [place] [address] October, [facility] [place] [facility] [address] [id number] [place] [address] October, [facility] [place] [facility] [address] [id number] [place] [address] October, [facility] [place] [facility] [address] [id number] [place] [address] October, [facility] [address] [id number] [place] [address] October, [facility] [address] [id number] [place] [address] October, [facility] [address] [id number] [place] [address] October, [facility] [address] [id number] [place] [address] Sep, [facility] [address] [id number] [place] [address] Sep, [facility] [address] [id number] [place] [address] Sep, [facility] [address] [id number] [place] [address] Sep, [facility] [address] [id number] [place] [address] Sep, [facility] [address] [id number] [place] [address] Sep, [facility] [address] [id number] [place] [address] Sep, [facility] [address] [id number] [place] [address] Aug, [facility] [place] [facility] [address] [id number] [place] [address] Aug, [facility] [place] [facility] [address] [id number] [place] [address] Aug, [facility] [place] [facility] [address] [id number] [place] [address] Aug, [facility] [place] [facility] [address] [id number] [place] [address] Aug, [facility] [place] [facility] [address] [id number] [place] [address] Aug, [facility] [place] [facility] [address] [id number] [place] [address] Jul, [facility] [place] [facility] [address] [id number] [place] [address] Jul, [facility] [place] [facility] [address] [id number] [place] [address] Jul, [facility] [place] [facility] [address] [id number] [place] [address] Jul, [facility] [place] [facility] [address] [id number] [place] [address] Jul, [facility] [place] [facility] [address] [id number] [place] [address] Jul, [facility] [place] [facility] [address] [id number] [place] [address] Jun, [facility] [place] [facility] [address] [id number] [place] [address] Jun, [facility] [place] [facility] [address] [id number] [place] [address] Jun, [facility] [place] [facility] [address] [id number] [place] [address] Jun, [facility] [place] [facility] [address] [id number] [place] [address] Jun, [facility] [place] [facility] [address] [id number] [place] [address] Jun, [facility] [place] [facility] [address] [id number] [place] [address] Jun, [facility] [place] [facility] [address] [id number] [place] [address] Jun, [facility] [place] [facility] [address] [id number] [place] [address] 16 Jun, 2013 [facility] [address] [id number] [place] [address] 14 Jun, 2013 [facility] [place] [facility] [address] [id number] [place] [address] 14 Jun, 2013 [facility] [address] [id number] [place] [address] 14 Jun, 2013 [facility] [place] [facility] [address] [id number] [place] [address] 14 Jun, 2013 [facility] [address] [id number] [place] [address] 30 May, 2013 [facility] [place] [facility] [address] [id number] [place] [address] 30 May, 2013 [facility] [address] [id number] [place] [address] 30 May, 2013 [facility] [place] [facility] [address] [id number] [place] [address] 30 May, 2013 [facility] [place] [facility] [address] [id number] [place] [address] 26 May, 2013 [facility] [address] [id number] [place] [address] 14 May, 2013 [facility] [place] [facility] [address] [id number] [place] [address] 14 May, 2013 [facility] [place] [facility] [address] [id number] [place] [address] 12 May, 2013 [facility] [place] [facility] [address] [id number] [place] [address] 12 May, 2013 [facility] [place] [facility] [address] [id number] [place] [address] 11 May, 2013 [facility] [place] [facility] [address] [id number] [place] [address] May, [facility] [place] [facility] [address] [id number] [place] [address] May, [facility] [address] [id number] [place] [address] May, [facility] [address] [id number] [place] [address] May, [facility] [place] [facility] [address] [id number] [place] [address] May, [facility] [address] [id number] [place] [address] May, [facility] [address] [id number] [place] [address] May, [facility] [address] [id number] [place] [address] May, [facility] [address] [id number] [place] [address] May, [facility] [address] [id number] [place] [address] May, [facility] [address] [id number] [place] [address] May, [facility] [place] [facility] [address] [id number] [place] [address] Apr, [facility] [place] [facility] [address] [id number] [place] [address] Apr, [facility] [place] [facility] [address] [id number] [place] [address] Apr, [facility] [place] [facility] [address] [id number] [place] [address] Apr, [facility] [place] [facility] [address] [id number] [place] [address] 08 Mar, 2013 [facility] [place] [facility] [address] [id number] [place] [address] 23 Feb, 2013 [facility] [place] [facility] [address] [id number] [place] [address] 16 Feb, 2013 [facility] [place] [facility] [address] [id number] [place] [address] 13 Feb, 2013 [facility] [place] [facility] [address] [id number] [place] [address] 10 Feb, 2013 [facility] [place] [facility] [address] [id number] [place] [address] Feb, [facility] [place] [facility] [address] [id number] [place] [address] Feb, [facility] [place] [facility] [address] [id number] [place] [address] Jan, [facility] [place] [facility] [address] [id number] [place] [address] Jan, [facility] [place] [facility] [address] [id number] [place] [address] Jan, [facility] [place] [facility] [address] [id number] [place] [address] Dec, [facility] [place] [facility] [address] [id number] [place] [address] Dec, [facility] [place] [facility] [address] [id number] [place] [address] Dec, [facility] [place] [facility] [address] [id number] [place] [address] Dec, [facility] [place] [facility] [address] [id number] [place] [address] Dec, [facility] [place] [facility] [address] [id number] [place] [address] Nov, [facility] [place] [facility] [address] [id number] [place] [address] Nov, [facility] [place] [facility] [address] [id number] [place] [address] 20 Nov, 2012 [facility] [address] [id number] [place] [address] Nov, [facility] [address] [id number] [place] [address] Nov, [facility] [address] [id number] [place] [address] 08 Nov, 2012 [facility] [address] [id number] [place] [address] 07 Nov, 2012 [facility] [address] [id number] [place] [address] 06 Nov, 2012 [facility] [address] [id number] [place] [address] 05 Nov, 2012 [facility] [address] [id number] [place] [address] Nov, [facility] [address] [id number] [place] [address] October, [facility] [address] [id number] [place] [address] October, [facility] [address] [id number] [place] [address] Sep, [facility] [address] [id number] [place] [address] Sep, [facility] [address] [id number] [place] [address] Sep, [facility] [place] [facility] [address] [id number] [place] [address] Sep, [facility] [place] [facility] [address] [id number] [place] [address] Sep, [facility] [address] [id number] [place] [address] Aug, [facility] [address] [id number] [place] [address] Aug, [facility] [place] [facility] [address] [id number] [place] [address] Jul, [facility] [place] [facility] [address] [id number] [place] [address] Jul, [facility] [place] [facility] [address] [id number] [place] [address] Jun, [facility] [address] [id number] [place] [address] Jun, [facility] [address] [id number] [place] [address] May, [facility] [place] [facility] [address] [id number] [place] [address] May, [facility] [address] [id number], [place] [address] May, [facility] [place] [facility] [address] [id number] [place] [address] May, [facility] [place] [facility] [address] [id number], [place] [address] Apr, [facility] [place] [facility] [address] [id number], [place] [address] Apr, [facility] [place] [facility] [address] [id number], [place] [address] Apr, [facility] [place] [facility] [address] [id number] [place] [address] Apr, [facility] [place] [facility] [address] [id number], [place] [address] Apr, [facility] [place] [facility] [address] [id number] [place] [address] 14 Apr, 2012 [facility] [place] [facility] [address] [id number] [place] [address] 14 Apr, 2012 [facility] [place] [facility] [address] [id number] [place] [address] Apr, [facility] [place] [facility] [address] [id number] [place] [address] Apr, [facility] [place] [facility] [address] [id number] [place] [address] 15 Mar, 2012 [facility] [place] [facility] [address] [id number] [place] [address] 15 Mar, 2012 [facility] [place] [facility] [address] [id number] [place] [address] Feb, [facility] [place] [facility] [address] [id number] [place] [address] Jan, [facility] [place] [facility] [address] [id number] [place] [address] Jan, [facility] [place] [facility] [address] [id number] [place] [address] Dec, [facility] [place] [facility] [address] [id number] [place] [address] Nov, [facility] [place] [facility] [address] [facility] [id number] [place] [address] Nov, [facility] [place] [facility] [address] [id number] [place] [address] October, [facility] [place] [facility] [address] [id number] [place] [address] October, [facility] [place] [facility] [address] [id number] [place] [address] Sep, [facility] [place] [facility] [address] [id number] [place] [address] Sep, [facility] [place] [facility] [address] [facility] [id number] [place] [address] May, [facility] [place] [facility] [address] [facility] [id number], [place] [address] Apr, [facility] [address] [facility] [id number], [place] [address] Apr, [facility] [address] [facility] [id number], [place] [address] Apr, [facility] [address] [facility] [id number], [place] [address] Apr, [facility] [address] [facility] [id number], [place] [address] Apr, [facility] [address] [facility] [id number] [place] [address] Apr, [facility] [address] [id number], [place] [address] Apr, [facility] [id number], [place] [address] Apr, [facility] [id number], [place] [address] Mar, [facility] [address] [facility] [id number], [place] [address] Mar, [facility] [id number], [place] [address] Mar, [facility] [id number], [place] [address] Mar, [facility] [address] [facility] [id number], [place] [address] Mar, [facility] [id number], [place] [address] Mar, IMMUNIZATIONS No Known Immunizations SOCIAL HISTORY Never Assessed REASON FOR VISIT PLAN OF CARE VITAL SIGNS MEDICATIONS Unknown Medications RESULTS No Results PROCEDURES No Known procedures INSTRUCTIONS MEDICATIONS ADMINISTERED No Known Medications MEDICAL (GENERAL) HISTORY Type Description Date Medical History HTN Medical History Depression Medical History Arthritis Surgical History Breast lump removed Surgical History Removal of cyst from ovary Surgical History cholecystectomy Surgical History Stomach surgeryx3 Hospitalization History Mental floor at [facility]
--- OUTSIDE RECORDS SUMMARY | 2018-10-27 16:10 | XMS REPORT ---
Author Author KATELYN SHERIFF [facility] Address [address] [place] [address] Care Team Providers Care Agricultural Services Director Name Role Phone KATELYN SHERIFF Unavailable PROBLEMS Type Condition ICD9-CM Code NYU95-BW Code Onset Dates Condition Status SNOMED Code Problem Presbyopia H52.4 Active 58058607 Problem Unspecified open-angle glaucoma, stage unspecified H40.10X0 Feb, Active 04155748 Problem Nondependent 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 Active 020198814 Problem Unspecified epilepsy without mention of intractable epilepsy G40.909 Active 04867242 Problem Chronic tension-type headache, intractable G44.221 Active 312672232 Problem Other chronic pain G89.29 Active 691755821 Problem Goiter E04.9 Active 0043369 Problem Hypertension I10 Active 01587698 Problem Multinodular goiter E04.2 Active 038154828 Problem Cough R05 Active 49988498 Problem Acquired hypothyroidism E03.9 Active 929844685 Problem Abnormal laboratory test R89.9 Active 642849376 Problem Urge incontinence of urine N39.41 Active 27257110 Problem Esophageal reflux K21.9 Active 272456952 Problem Rheumatoid arthritis M06.9 Active 91961202 Problem Hyperlipidemia, unspecified E78.5 Active 52908693 Problem Chronic obstructive pulmonary disease, unspecified COPD type J44.9 Active 32602682 Problem Carpal tunnel syndrome of left wrist G56.02 Active 200901703466682 Problem BMI 40.0-44.9, adult Z68.41 Active 030038996 Problem Reactive airway disease without complication, unspecified asthma severity, unspecified whether persistent J45.909 Active 577133664844 Problem Right-sided low back pain without sciatica M54.5 Active 301795759 Problem Arthralgia M25.50 Active 92983142 Problem Depressive disorder F32.9 Active 87717762 Problem Depression F32.9 Active 37112907 Problem Thyroid nodule E04.1 Active 812455171 Problem Neuropathy G62.9 Active 210633532 Problem Insomnia G47.00 Active 624134711 Problem Anxiety disorder, unspecified F41.9 Active 854190386 ALLERGIES No Information ENCOUNTERS Encounter Location Date Diagnosis [facility] [id number] [place] [address] Apr, Abnormal laboratory test R89.9 [facility] [id number] [place] [address] Apr, [place] [id number] [place] [address] Apr, [place] [address] [address] Apr, Nonintractable episodic headache, unspecified headache type R51 ; Urge incontinence of urine N39.41 ; BMI 40.0-44.9, adult Z68.41 ; Myalgia M79.10 and Acute cystitis without hematuria N30.00 [place] [id number] [place] [address] Mar, Nasal congestion R09.81 ; Low back pain M54.5 ; Reactive airway disease without complication, unspecified asthma severity, unspecified whether persistent J45.909 ; Other chronic pain G89.29 ; Acute cystitis with hematuria N30.01 and BMI 40.0-44.9, adult Z68.41 [facility] [id number] [place] [address] Mar, Acute cystitis with hematuria N30.01 [facility] [id number] [place] [address] Mar, BMI 40.0-44.9, adult Z68.41 ; Acute cystitis with hematuria N30.01 ; Acute bilateral low back pain without sciatica M54.5 and Nausea R11.0 [facility] [id number] [place] [address] Mar, Hypertension I10 ; Acquired hypothyroidism E03.9 ; Esophageal reflux K21.9 ; Chronic obstructive pulmonary disease, unspecified COPD type J44.9 and BMI 40.0-44.9, adult Z68.41 [place] [address] [address] Mar, Hypertension I10 [place] [address] [address] Nov, Hyperlipidemia, unspecified E78.5 [place] [address] [address] October, Chest pain, unspecified type R07.9 and Acquired hypothyroidism E03.9 [place] [address] [address] October, Chest pain, unspecified type R07.9 ; Family history of coronary artery disease Z82.49 ; Carpal tunnel syndrome of left wrist G56.02 ; Hypertension I10 ; Esophageal reflux K21.9 ; Arthralgia M25.50 ; Acquired hypothyroidism E03.9 ; Cough R05 ; Nausea R11.0 ; Weight gain R63.5 and BMI 45.0-49.9, adult Z68.42 [place] [address] [address] Jun, Acquired hypothyroidism E03.9 and Cough R05 [place] [address] [address] May, [place] [address] [address] Feb, Tarsal tunnel syndrome of both lower extremities G57.53 and Neuropathy G62.9 [place] [address] [address] Dec, Pleuritis R09.1 [place] [address] [address] Nov, [place] [address] [address] October, Arthralgia, unspecified joint M25.50 and Allergy, initial encounter T78.40XA [place] [address] [address] October, [place] [id number] [place] [address] October, Acute recurrent maxillary sinusitis J01.01 and Arthralgia M25.50 [place] [id number] [place] [address] Sep, Pharyngitis due to other organism J02.8 [place] [address] [address] Aug, Acute nasopharyngitis J00 [address] [address] Aug, Multinodular goiter E04.2 [place] [id number] [place] [address] Aug, Thyroid nodule E04.1 [place] [id number] [place] [address] Jul, Tarsal tunnel syndrome of both lower extremities G57.53 [place] [id number] [place] [address] Jun, Pneumonia due to infectious organism, unspecified laterality, unspecified part of lung J18.9 [place] [id number] [place] [address] Jun, Bronchospasm with bronchitis, acute J20.9 [place] [id number] [place] [address] May, Acute non-recurrent frontal sinusitis J01.10 [place] [id number] [place] [address] May, Flat foot [pes planus] (acquired), left foot M21.42 ; Flat foot [pes planus] (acquired), right foot M21.41 and Neuropathy G62.9 [place] [address] [address] Apr, Chronic tension-type headache, intractable G44.221 ; Right lower quadrant abdominal pain R10.31 ; Cervicalgia M54.2 ; Acute gastritis without hemorrhage, unspecified gastritis type K29.00 and Hypertension I10 [place] [address] [address] Mar, Depression F32.9 and Anxiety disorder, unspecified F41.9 [place] [address] [address] Feb, Depressive disorder F32.9 and Anxiety disorder, unspecified F41.[address] [address] Jan, Dysuria R30.0 ; Lower abdominal pain R10.30 ; Acute bilateral low back pain without sciatica M54.5 ; Nausea and vomiting, unspecified intactability, vomiting of unspecified type R11.2 ; Pain in right foot M79.671 and Pain of left foot M79.672 [place] [address] [address] Dec, Urinary tract infection, site not specified N39.0 [place] [address] [address] Dec, [place] [address] [address] Nov, [place] [address] [address] Nov, Dysuria R30.0 [place] [address] [address] Nov, Dysuria R30.0 and Acute cystitis with hematuria N30.01 [place] [id number] [place] [address] October, Nausea R11.0 [place] [address] [address] October, Thyroid nodule E04.1 ; Carpal tunnel syndrome, left upper limb G56.02 ; Carpal tunnel syndrome, right upper limb G56.01 and Constipation, unspecified constipation type K59.00 [place] [address] [address] October, [place] [address] [address] October, Thyroid nodule E04.1 [place] [address] [address] October, Cold thyroid nodule E04.1 [place] [address] [address] October, [place] [id number] [place] [address] Sep, Thyroid nodule E04.1 [place] [address] [address] Sep, Thyroid nodule E04.1 [place] [id number] [place] [address] Sep, Thyroid nodule E04.1 ; Hypertension I10 ; Esophageal reflux K21.9 and Hyperlipidemia, unspecified E78.5 [place] [id number] [place] [address] 14 Aug, 2015 Other chronic pain G89.29 ; Sinusitis J32.9 and Hypertension I10 [place] [id number] [place] [address] 29 Jul, 2015 [place] [id number] [place] [address] 15 Jul, 2015 [place] [id number] [place] [address] Jul, Insomnia G47.00 and Arthralgia M25.50 [place] [id number] [place] [address] 10 Jul, 2015 Depressive disorder F32.9 and Anxiety disorder, unspecified F41.9 [place] [id number] [place] [address] May, Right-sided low back pain without sciatica M54.5 and Depression F32.9 [place] [id number] [place] [address] Apr, Hematuria R31.9 [place] [id number] [place] [address] Mar, Other chronic pain G89.29 [place] [address] [address] Mar, Other chronic pain G89.29 [place] [id number] [place] [address] Feb, [place] [id number] [place] [address] Feb, Other chronic pain 338.29 ; Dysuria 788.1 ; UTI (urinary tract infection) 599.0 ; Insomnia 780.52 ; Hot flashes 627.2 and Hypertension 401.9 [place] [id number] [place] [address] 14 Feb, 2015 Dysuria 788.1 [place] [id number] [place] [address] Feb, [place] [id number] [place] [address] Jan, [place] [id number] [place] [address] Jan, [facility] [address] [facility] [id number] [address] Jan, Fibromyalgia 729.1 ; Hypertension 401.9 ; Dysthymia 300.4 and Hot flashes 627.2 [facility] [address] [facility] [id number] [place] [address] Dec, [facility] [id number] [place] [address], [place] [address] Dec, [facility] [address] [facility] [id number] [place] [address] Dec, [facility] [id number] [place] [address], [place] [address] Nov, Other chronic pain 338.29 [facility] [id number] [place] [address] October, [facility] [id number] [place] [address], [place] [address] October, [facility] [id number] [place] [address] Sep, [facility] [id number] [place] [address] Sep, [facility] [id number] [place] [address] Aug, [facility] [address] [address] Aug, [facility] [id number] [place] [address] Aug, [facility] [id number] [place] [address] Aug, [facility] [address] [facility] [id number] [place] [address] Aug, [facility] [address] [address] Aug, [facility] [place] [facility] [address] [id number] [place] [address] Aug, [facility] [place] [facility] [address] [id number] [place] [address] Aug, [facility] [place] [facility] [address] [facility] [id number] [place] [address] Aug, [facility] [place] [facility] [address] [facility] [id number] [place] [address] Aug, [facility] [place] [facility] [address] [id number] [place] [address] Aug, [facility] [place] [facility] [address] [facility] [id number] [place] [address] Aug, [facility] [place] [facility] [address] [facility] [id number] [place] [address] Aug, [facility] [place] [facility] [address] [facility] [id number] [place] [address] Aug, [facility] [place] [facility] [address] [facility] [id number] [place] [address] Jul, [facility] [place] [facility] [address] [facility] [id number] [place] [address] Jul, [facility] [place] [facility] [address] [facility] [id number], [place] [address] Jul, [facility] [place] [facility] [address] [facility] [id number], [place] [address] Jul, [facility] [place] [facility] [address] [facility] [id number] [place] [address] Jul, [facility] [place] [facility] [address] [facility] [id number] [place] [address] Jul, [facility] [place] [facility] [address] [facility] [id number] [place] [address] Jun, [facility] [place] [facility] [address] [id number] [place] [address] 15 Jun, 2014 [facility] [place] [facility] [address] [id number] [place] [address] Jun, [facility] [place] [facility] [address] [id number] [place] [address] Jun, [facility] [place] [facility] [address] [id number] [place] [address] May, [facility] [place] [facility] [address] [id number] [place] [address] May, [facility] [place] [facility] [address] [id number] [place] [address] May, [facility] [place] [facility] [address] [id number] [place] [address] May, [facility] [place] [facility] [address] [id number] [place] [address] May, [facility] [place] [facility] [address] [id number] [place] [address] May, [facility] [place] [facility] [address] [id number] [place] [address] May, [facility] [place] [facility] [address] [id number] [place] [address] May, [facility] [place] [facility] [address] [id number] [place] [address] May, [facility] [place] [facility] [address] [id number] [place] [address] May, [facility] [place] [facility] [address] [id number] [place] [address] Apr, [facility] [place] [facility] [address] [id number] [place] [address] Apr, [facility] [place] [facility] [address] [id number] [place] [address] Apr, [facility] [place] [facility] [address] [id number] [place] [address] Apr, [facility] [place] [facility] [address] [id number] [place] [address] Apr, [facility] [place] [facility] [address] [id number] [place] [address] Apr, [facility] [place] [facility] [address] [id number] [place] [address] Apr, [facility] [place] [facility] [address] [id number] [place] [address] Apr, [facility] [place] [facility] [address] [id number] [place] [address] Apr, [facility] [place] [facility] [address] [id number] [place] [address] Mar, [facility] [place] [facility] [address] [id number], [place] [address] Mar, [facility] [place] [facility] [address] [id number] [place] [address] Mar, [facility] [place] [facility] [address] [id number] [place] [address] Mar, [facility] [place] [facility] [address] [id number], [place] [address] Mar, [facility] [place] [facility] [address] [id number], [place] [address] Mar, [facility] [place] [facility] [address] [id number], [place] [address] Mar, [facility] [place] [facility] [address] [id number], [place] [address] Mar, [facility] [place] [facility] [address] [id number], [place] [address] Feb, [facility] [place] [facility] [address] [id number] [place] [address] 30 Sep, 2013 [facility] [place] [facility] [address] [id number] [place] [address] 24 Sep, 2013 [facility] [place] [facility] [address] [id number] [place] [address] 24 Feb, 2013 [facility] [place] [facility] [address] [id number] [place] [address] 22 Feb, 2013 [facility] [place] [facility] [address] [id number] [place] [address] 22 Feb, 2013 [facility] [place] [facility] [address] [id number] [place] [address] 10 Feb, 2013 [facility] [place] [facility] [address] [id number] [place] [address] 10 Feb, 2013 [facility] [place] [facility] [address] [id number] [place] [address] 03 Feb, 2013 [facility] [place] [facility] [address] [id number] [place] [address] 03 Sep, 2013 [facility] [place] [facility] [address] [id number] [place] [address] 03 Sep, 2013 [facility] [place] [facility] [address] [id number] [place] [address] 03 Sep, 2013 [facility] [place] [facility] [address] [id number] [place] [address] 03 Feb, 2013 [facility] [place] [facility] [address] [id number] [place] [address] Feb, 2013 [facility] [place] [facility] [address] [id number] [place] [address] Jan, [facility] [place] [facility] [address] [id number] [place] [address] Jan, [facility] [place] [facility] [address] [id number] [place] [address] Dec, [facility] [place] [facility] [address] [id number] [place] [address] Dec, [facility] [place] [facility] [address] [id number] [place] [address] Dec, [facility] [place] [facility] [address] [id number] [place] [address] Dec, [facility] [place] [facility] [address] [id number] [place] [id number] Dec, [facility] [place] [facility] [address] [id number] [place] [address] Dec, [facility] [place] [facility] [address] [id number] [place] [address] Dec, [facility] [place] [facility] [address] [id number] [place] [address] Dec, [facility] [place] [facility] [address] [id number] [place] [address] Dec, [facility] [place] [facility] [address] [id number] [place] [address] Dec, [facility] [place] [facility] [address] [id number] [place] [address] Dec, [facility] [place] [facility] [address] [id number] [place] [address] Dec, [facility] [place] [facility] [address] [id number] [place] [address] Dec, [facility] [place] [facility] [address] [id number] [place] [address] Dec, [facility] [place] [facility] [address] [id number] [place] [address] Dec, [facility] [place] [facility] [address] [id number] [place] [address] Dec, [facility] [place] [facility] [address] [id number] [place] [address] Dec, [facility] [place] [facility] [address] [id number] [place] [address] Dec, [facility] [place] [facility] [address] [id number] [place] [address] Dec, [facility] [place] [facility] [address] [id number] [place] [address] Nov, [facility] [place] [facility] [address] [id number] [place] [address] Nov, [facility] [place] [facility] [address] [id number] [place] [address] Nov, [facility] [place] [facility] [address] [id number] [place] [address] Nov, [facility] [place] [facility] [address] [id number] [place] [address] Nov, [facility] [place] [facility] [address] [id number] [place] [address] Nov, [facility] [place] [facility] [address] [id number] [place] [address] Nov, [facility] [place] [facility] [address] [id number] [place] [address] Nov, [facility] [place] [facility] [address] [id number] [place] [address] Nov, [facility] [place] [facility] [address] [id number] [place] [address] October, [facility] [place] [facility] [address] [id number] [place] [address] October, [facility] [place] [facility] [address] [id number] [place] [address] October, [facility] [place] [facility] [address] [id number] [place] [address] October, [facility] [place] [facility] [address] [id number] [place] [address] October, [facility] [address] [id number] [place] [address] October, [facility] [address] [id number] [place] [address] October, [facility] [address] [id number] [place] [address] October, [facility] [address] [id number] [place] [address] Sep, [facility] [address] [id number] [place] [address] Sep, [facility] [address] [id number] [place] [address] Sep, [facility] [address] [id number] [place] [address] Sep, [facility] [address] [id number] [place] [address] Sep, [facility] [address] [id number] [place] [address] Sep, [facility] [address] [id number] [place] [address] Sep, [facility] [address] [id number] [place] [address] Aug, [facility] [place] [facility] [address] [id number] [place] [address] Aug, [facility] [place] [facility] [address] [id number] [place] [address] Aug, [facility] [place] [facility] [address] [id number] [place] [address] Aug, [facility] [place] [facility] [address] [id number] [place] [address] Aug, [facility] [place] [facility] [address] [id number] [place] [address] Aug, [facility] [place] [facility] [address] [id number] [place] [address] Jul, [facility] [place] [facility] [address] [id number] [place] [address] Jul, [facility] [place] [facility] [address] [id number] [place] [address] Jul, [facility] [place] [facility] [address] [id number] [place] [address] Jul, [facility] [place] [facility] [address] [id number] [place] [address] Jul, [facility] [place] [facility] [address] [id number] [place] [address] Jul, [facility] [place] [facility] [address] [id number] [place] [address] Jun, [facility] [place] [facility] [address] [id number] [place] [address] Jun, [facility] [place] [facility] [address] [id number] [place] [address] Jun, [facility] [place] [facility] [address] [id number] [place] [address] Jun, [facility] [place] [facility] [address] [id number] [place] [address] Jun, [facility] [place] [facility] [address] [id number] [place] [address] Jun, [facility] [place] [facility] [address] [id number] [place] [address] Jun, [facility] [place] [facility] [address] [id number] [place] [address] Jun, [facility] [place] [facility] [address] [id number] [place] [address] 16 Jun, 2013 [facility] [address] [id number] [place] [address] 14 Jun, 2013 [facility] [place] [facility] [address] [id number] [place] [address] 14 Jun, 2013 [facility] [address] [id number] [place] [address] 14 Jun, 2013 [facility] [place] [facility] [address] [id number] [place] [address] 14 Jun, 2013 [facility] [address] [id number] [place] [address] 30 May, 2013 [facility] [place] [facility] [address] [address] [id number] [place] [address] 30 May, 2013 [facility] [address] [id number] [place] [address] 30 May, 2013 [facility] [place] [facility] [address] [id number] [place] [address] 30 May, 2013 [facility] [place] [facility] [address] [id number] [place] [address] 26 May, 2013 [facility] [address] [id number] [place] [address] 14 May, 2013 [facility] [place] [facility] [address] [id number] [place] [address] 14 May, 2013 [facility] [place] [facility] [address] [id number] [place] [address] 12 May, 2013 [facility] [place] [facility] [address] [id number] [place] [address] 12 May, 2013 [facility] [place] [facility] [address] [id number] [place] [address] 11 May, 2013 [facility] [place] [facility] [address] [id number] [place] [address] May, [facility] [place] [facility] [address] [id number] [place] [address] May, [facility] [address] [id number] [place] [address] May, [facility] [address] [id number] [place] [address] May, [facility] [place] [facility] [address] [id number] [place] [address] May, [facility] [address] [id number] [place] [address] May, [facility] [address] [id number] [place] [address] May, [facility] [address] [id number] [place] [address] May, [facility] [address] [id number] [place] [address] May, [facility] [address] [id number] [place] [address] May, [facility] [address] [id number] [place] [address] May, [facility] [place] [facility] [address] [id number] [place] [address] Apr, [facility] [place] [facility] [address] [id number] [place] [address] Apr, [facility] [place] [facility] [address] [id number] [place] [address] Apr, [facility] [place] [facility] [address] [id number] [place] [address] Apr, [facility] [place] [facility] [address] [id number] [place] [address] 08 Mar, 2013 [facility] [place] [facility] [address] [id number] [place] [address] 23 Feb, 2013 [facility] [place] [facility] [address] [id number] [place] [address] 16 Feb, 2013 [facility] [place] [facility] [address] [id number] [place] [address] 13 Feb, 2013 [facility] [place] [facility] [address] [id number] [place] [address] 10 Feb, 2013 [facility] [place] [facility] [address] [id number] [place] [address] Feb, [facility] [place] [facility] [address] [id number] [place] [address] Feb, [facility] [place] [facility] [address] [id number] [place] [address] Jan, [facility] [place] [facility] [address] [id number] [place] [address] Jan, [facility] [place] [facility] [address] [id number] [place] [address] Jan, [facility] [place] [facility] [address] [id number] [place] [address] Dec, [facility] [place] [facility] [address] [id number] [place] [address] Dec, [facility] [place] [facility] [address] [id number] [place] [address] Dec, [facility] [place] [facility] [address] [id number] [place] [address] Dec, [facility] [place] [facility] [address] [id number] [place] [address] Dec, [facility] [place] [facility] [address] [id number] [place] [address] Nov, [facility] [place] [facility] [address] [id number] [place] [address] Nov, [facility] [place] [facility] [address] [id number] [place] [address] 20 Nov, 2012 [facility] [address] [id number] [place] [address] Nov, [facility] [address] [id number] [place] [address] Nov, [facility] [address] [id number] [place] [address] 08 Nov, 2012 [facility] [address] [id number] [place] [address] 07 Nov, 2012 [facility] [address] [id number] [place] [address] 06 Nov, 2012 [facility] [address] [id number] [place] [address] 05 Nov, 2012 [facility] [address] [id number] [place] [address] Nov, [facility] [address] [id number] [place] [address] October, [facility] [address] [id number] [place] [address] October, [facility] [address] [id number] [place] [address] Sep, [facility] [address] [id number] [place] [address] Sep, [facility] [address] [id number] [place] [address] Sep, [facility] [place] [facility] [address] [id number] [place] [address] Sep, [facility] [place] [facility] [address] [id number] [place] [address] Sep, [facility] [address] [id number] [place] [address] Aug, [facility] [address] [id number] [place] [address] Aug, [facility] [place] [facility] [address] [id number] [place] [address] Jul, [facility] [place] [facility] [address] [id number] [place] [address] Jul, [facility] [place] [facility] [address] [id number] [place] [address] Jun, [facility] [address] [id number] [place] [address] Jun, [facility] [address] [id number] [place] [address] May, [facility] [place] [facility] [address] [id number] [place] [address] May, [facility] [address] [id number], [place] [address] May, [facility] [place] [facility] [address] [id number] [place] [address] May, [facility] [place] [facility] [address] [id number], [place] [address] Apr, [facility] [place] [facility] [address] [id number], [place] [address] Apr, [facility] [place] [facility] [address] [id number], [place] [address] Apr, [facility] [place] [facility] [address] [id number] [place] [address] Apr, [facility] [place] [facility] [address] [id number], [place] [address] Apr, [facility] [place] [facility] [address] [id number] [place] [address] 14 Apr, 2012 [facility] [place] [facility] [address] [id number] [place] [address] 14 Apr, 2012 [facility] [place] [facility] [address] [id number] [place] [address] Apr, [facility] [place] [facility] [address] [id number] [place] [address] Apr, [facility] [place] [facility] [address] [id number] [place] [address] 15 Mar, 2012 [facility] [place] [facility] [address] [id number] [place] [address] 15 Mar, 2012 [facility] [place] [facility] [address] [id number] [place] [address] Feb, [facility] [place] [facility] [address] [id number] [place] [address] Jan, [facility] [place] [facility] [address] [id number] [place] [address] Jan, [facility] [place] [facility] [address] [id number] [place] [address] Dec, [facility] [place] [facility] [address] [id number] [place] [address] Nov, [facility] [place] [facility] [address] [facility] [id number] [place] [address] Nov, [facility] [place] [facility] [address] [id number] [place] [address] October, [facility] [place] [facility] [address] [id number] [place] [address] October, [facility] [place] [facility] [address] [id number] [place] [address] Sep, [facility] [place] [facility] [address] [id number] [place] [address] Sep, [facility] [place] [facility] [address] [facility] [id number] [place] [address] May, [facility] [place] [facility] [address] [facility] [id number], [place] [address] Apr, [facility] [address] [facility] [id number], [place] [address] Apr, [facility] [address] [facility] [id number], [place] [address] Apr, [facility] [address] [facility] [id number], [place] [address] Apr, [facility] [address] [facility] [id number], [place] [address] Apr, [facility] [address] [facility] [id number] [place] [address] Apr, [facility] [address] [facility] [id number], [place] [address] Apr, [facility] [id number], [place] [address] Apr, [facility] [address] [id number], [place] [address] Mar, [facility] [address] [facility] [id number], [place] [address] Mar, [facility] [address] [facility] [id number], [place] [address] Mar, [facility] [address] [facility] [id number], [place] [address] Mar, [facility] [address] [facility] [id number], [place] [address] Mar, [facility] [address] [facility] [id number], [place] [address] Mar, IMMUNIZATIONS No Known Immunizations SOCIAL HISTORY Never Assessed REASON FOR VISIT Lab Results PLAN OF CARE VITAL SIGNS MEDICATIONS Unknown Medications RESULTS No Results PROCEDURES No Known procedures INSTRUCTIONS MEDICATIONS ADMINISTERED No Known Medications MEDICAL (GENERAL) HISTORY Type Description Date Medical History HTN Medical History Depression Medical History Arthritis Surgical History Breast lump removed Surgical History Removal of cyst from ovary Surgical History cholecystectomy Surgical History Stomach surgeryx3 Hospitalization History Mental floor at [facility]
--- OUTSIDE RECORDS SUMMARY | 2018-10-27 16:11 | XMS REPORT ---
Author Author WINSTON STEVEN [facility] Address [address] [place] [address] Phone Unavailable Care Team Providers Care Heavy Equipment Sales Associate Name Role Phone WINSTON STEVEN Unavailable Unavailable PROBLEMS Type Condition ICD9-CM Code [id number] Code Onset Dates Condition Status SNOMED Code Problem Thyroid nodule E04.1 Active 864826967 Problem Chronic tension-type headache, intractable G44.221 Active 717026201 Problem Neuropathy G62.9 Active 323061099 Problem Chronic obstructive pulmonary disease, unspecified COPD type J44.9 Active 16821529 Problem Other chronic pain G89.29 Active 645457503 Problem Carpal tunnel syndrome of left wrist G56.02 Active [id number] Problem Unspecified epilepsy without mention of intractable epilepsy G40.909 Active 39579785 Problem Nondependent 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 Active 203578796 Problem Goiter E04.9 Active 1897835 Problem Multinodular goiter E04.2 Active 147735221 Problem Cough R05 Active 35926679 Problem Acquired hypothyroidism E03.9 Active 531908430 Problem Rheumatoid arthritis M06.9 Active 39899239 Problem Esophageal reflux K21.9 Active 278730863 Problem Hypertension I10 Active 90417342 Problem Hyperlipidemia, unspecified E78.5 Active 69613099 Problem Right-sided low back pain without sciatica M54.5 Active 126846790 Problem Arthralgia M25.50 Active 04112237 Problem Presbyopia H52.4 Active 05421906 Problem Depressive disorder F32.9 Active 70932866 Problem Insomnia G47.00 Active 358061688 Problem Unspecified open-angle glaucoma, stage unspecified H40.10X0 Feb, Active 73510477 Problem Depression F32.9 Active 95276074 Problem Anxiety disorder, unspecified F41.9 Active 357607218 ALLERGIES No Information ENCOUNTERS Encounter Location Date Diagnosis [facility] [address] [facility] [id number] [address] Mar, Acute cystitis with hematuria N30.01 [facility] [address] [id number] [place] [address] Mar, BMI 40.0-44.9, adult Z68.41 ; Acute cystitis with hematuria N30.01 ; Acute bilateral low back pain without sciatica M54.5 and Nausea R11.0 [place] [address] [address] Mar, Hypertension I10 ; Acquired hypothyroidism E03.9 ; Esophageal reflux K21.9 ; Chronic obstructive pulmonary disease, unspecified COPD type J44.9 and BMI 40.0-44.9, adult Z68.41 [place] [address] [address] Mar, Hypertension I10 [address] [address] Nov, Hyperlipidemia, unspecified E78.[address] [address] October, Chest pain, unspecified type R07.9 and Acquired hypothyroidism E03.9 [place] [id number] [place] [address] October, Chest pain, unspecified type R07.9 ; Family history of coronary artery disease Z82.49 ; Carpal tunnel syndrome of left wrist G56.02 ; Hypertension I10 ; Esophageal reflux K21.9 ; Arthralgia M25.50 ; Acquired hypothyroidism E03.9 ; Cough R05 ; Nausea R11.0 ; Weight gain R63.5 and BMI 45.0-49.9, adult Z68.[address] [address] Jun, Acquired hypothyroidism E03.9 and Cough R05 [place] [id number] [place] [address] May, [place] [id number] [place] [address] Feb, Tarsal tunnel syndrome of both lower extremities G57.53 and Neuropathy G62.9 [place] [address] [id number] [place] [address] Dec, Pleuritis R09.1 [place] [address] [address] Nov, [place] [address] [address] October, Arthralgia, unspecified joint M25.50 and Allergy, initial encounter T78.40XA [place] [address] [address] October, [place] [address] [address] October, Acute recurrent maxillary sinusitis J01.01 and Arthralgia M25.50 [place] [address] [id number] [place] [address] Sep, Pharyngitis due to other organism J02.8 [place] [address] [address] [id number] [place] [address] Aug, Acute nasopharyngitis J00 [place] [address] [address] [id number] [place] [address] Aug, Multinodular goiter E04.2 [place] [id number] [place] [address] Aug, Thyroid nodule E04.1 [place] [id number] [place] [address] Jul, Tarsal tunnel syndrome of both lower extremities G57.53 [place] [id number] [place] [address] Jun, Pneumonia due to infectious organism, unspecified laterality, unspecified part of lung J18.9 [place] [id number] [place] [address] Jun, Bronchospasm with bronchitis, acute J20.9 [place] [id number] [place] [address] May, Acute non-recurrent frontal sinusitis J01.10 [place] [address] [address] May, Flat foot [pes planus] (acquired), left foot M21.42 ; Flat foot [pes planus] (acquired), right foot M21.41 and Neuropathy G62.[address] [address] Apr, Chronic tension-type headache, intractable G44.221 ; Right lower quadrant abdominal pain R10.31 ; Cervicalgia M54.2 ; Acute gastritis without hemorrhage, unspecified gastritis type K29.00 and Hypertension I10 [address] [address] Mar, Depression F32.9 and Anxiety disorder, unspecified F41.[address] [address] Feb, Depressive disorder F32.9 and Anxiety disorder, unspecified F41.9 [place] [address] [address] Jan, Dysuria R30.0 ; Lower abdominal pain R10.30 ; Acute bilateral low back pain without sciatica M54.5 ; Nausea and vomiting, unspecified intactability, vomiting of unspecified type R11.2 ; Pain in right foot M79.671 and Pain of left foot M79.672 [place] [address] [id number] [place] [address] Dec, Urinary tract infection, site not specified N39.0 [place] [address] [address] Dec, [facility] [id number] [place] [address] Nov, [facility] [address] [id number] [place] [address] Nov, Dysuria R30.0 [place] [address] [address] [id number] [place] [address] Nov, Dysuria R30.0 and Acute cystitis with hematuria N30.01 [place] [address] [place] [id number] [place] [address] October, Nausea R11.0 [place] [address] [address] [id number] [place] [address] October, Thyroid nodule E04.1 ; Carpal tunnel syndrome, left upper limb G56.02 ; Carpal tunnel syndrome, right upper limb G56.01 and Constipation, unspecified constipation type K59.00 [place] [address] [address] [id number] [place] [address] October, [place] [address] [place] [address] [id number] [place] [address] October, Thyroid nodule E04.1 [place] [address] [place] [address] [id number] [place] [address] October, Cold thyroid nodule E04.1 [place] [address] [id number] [place] [address] October, [place] [address] [address] [id number] [place] [address] Sep, Thyroid nodule E04.1 [place] [address] [place] [address] [id number] [place] [address] Sep, Thyroid nodule E04.1 [place] [address] [place] [id number] [place] [address] Sep, Thyroid nodule E04.1 ; Hypertension I10 ; Esophageal reflux K21.9 and Hyperlipidemia, unspecified E78.5 [place] [address] [address] [id number] [place] [address] 14 Aug, 2015 Other chronic pain G89.29 ; Sinusitis J32.9 and Hypertension I10 [place] [address] [address] 29 Jul, 2015 [place] [address] [address] 15 Jul, 2015 [place] [address] [address] 10 Jul, 2015 Insomnia G47.00 and Arthralgia M25.50 [place] [address] [address] 10 Jul, 2015 Depressive disorder F32.9 and Anxiety disorder, unspecified F41.9 [place] [address] [address] May, Right-sided low back pain without sciatica M54.5 and Depression F32.9 [place] [address] [address] Apr, Hematuria R31.9 [place] [address] [address] Mar, Other chronic pain G89.29 [place] [address] [address] Mar, Other chronic pain G89.29 [place] [address] [address] Feb, [place] [address] [place] [id number] Feb, Other chronic pain 338.29 ; Dysuria 788.1 ; UTI (urinary tract infection) 599.0 ; Insomnia 780.52 ; Hot flashes 627.2 and Hypertension 401.9 [place] [address] [address] Feb, Dysuria 788.1 [facility] [id number] [place] [address] Feb, [facility] [id number] [address] Jan, [facility] [id number] [place] [address] Jan, [facility] [id number] [place] [address] Jan, Fibromyalgia 729.1 ; Hypertension 401.9 ; Dysthymia 300.4 and Hot flashes 627.2 [facility] [id number] [place] [address] Dec, [facility] [id number] [place] [address] Dec, [facility] [id number] [place] [address] Dec, [facility] [id number] [place] [address] Nov, Other chronic pain 338.29 [facility] [address] [address] October, [facility] [id number] [place] [address] October, [facility] [address] [address] Sep, [facility] [id number] [place] [address] Sep, [facility] [address] [address] Aug, [facility] [id number] [place] [address] Aug, [facility] [place] [facility] [address] [id number] [place] [address] Aug, [facility] [place] [facility] [address] [id number] [place] [address] Aug, [facility] [place] [facility] [address] [id number] [place] [address] Aug, [facility] [place] [facility] [address] [id number] [place] [address] Aug, [facility] [place] [facility] [address] [id number] [place] [address] Aug, [facility] [place] [facility] [address] [id number] [place] [address] Aug, [facility] [place] [facility] [address] [id number] [place] [address] Aug, [facility] [place] [facility] [address] [id number] [place] [address] Aug, [facility] [place] [facility] [address] [id number] [place] [address] Aug, [facility] [place] [facility] [address] [id number] [place] [address] Aug, [facility] [place] [facility] [address] [id number] [place] [address] Aug, [facility] [place] [facility] [address] [id number] [place] [address] Aug, [facility] [place] [facility] [address] [id number] [place] [address] Jul, [facility] [place] [facility] [address] [id number] [place] [address] Jul, [facility] [place] [facility] [address] [id number] [place] [address] Jul, [facility] [place] [facility] [address] [id number] [place] [address] Jul, [facility] [place] [facility] [address] [id number] [place] [address] Jul, [facility] [place] [facility] [address] [id number] [place] [address] Jul, [facility] [place] [facility] [address] [id number] [place] [address] Jun, [facility] [place] [facility] [address] [id number] [place] [address] Jun, [facility] [place] [facility] [address] [id number] [place] [address] Jun, [facility] [place] [facility] [address] [id number] [place] [address] Jun, [facility] [place] [facility] [address] [id number] [place] [address] May, [facility] [place] [facility] [address] [id number] [place] [address] May, [facility] [place] [facility] [address] [id number] [place] [address] May, [facility] [place] [facility] [address] [id number] [place] [address] May, [facility] [place] [facility] [address] [id number] [place] [address] May, [facility] [place] [facility] [address] [id number] [place] [address] May, [facility] [place] [facility] [address] [id number] [place] [address] May, [facility] [place] [facility] [address] [id number] [place] [address] May, [facility] [place] [facility] [address] [id number] [address] May, [facility] [place] [facility] [address] [id number] [place] [address] May, [facility] [place] [facility] [address] [id number] [place] [address] Apr, [facility] [place] [facility] [address] [id number] [place] [address] Apr, [facility] [place] [facility] [address] [id number] [place] [address] Apr, [facility] [place] [facility] [address] [id number] [place] [address] Apr, [facility] [place] [facility] [address] [id number] [place] [address] Apr, [facility] [place] [facility] [address] [id number] [place] [address] Apr, [facility] [place] [facility] [address] [id number] [place] [address] Apr, [facility] [place] [facility] [address] [id number] [place] [address] Apr, [facility] [place] [facility] [address] [id number] [place] [address] Apr, [facility] [place] [facility] [address] [id number], [place] [address] Mar, [facility] [place] [facility] [address] [id number], [place] [address] Mar, [facility] [place] [facility] [address] [id number] [place] [address] Mar, [facility] [place] [facility] [address] [id number] [place] [address] Mar, [facility] [place] [facility] [address] [id number], [place] [address] Mar, [facility] [place] [facility] [address] [id number] [place] [address] 08 Mar, 2013 [facility] [place] [facility] [address] [id number] [place] [address] 08 Mar, 2013 [facility] [place] [facility] [address] [id number] [place] [address] 08 Mar, 2014 [facility] [place] [facility] [address] [id number] [place] [address] 30 Feb, 2013 [facility] [place] [facility] [address] [id number] [place] [address] 30 Feb, 2013 [facility] [place] [facility] [address] [id number] [place] [address] 24 Feb, 2013 [facility] [place] [facility] [address] [id number] [place] [address] 24 Feb, 2013 [facility] [place] [facility] [address] [id number] [place] [address] 22 Feb, 2013 [facility] [place] [facility] [address] [id number] [place] [address] 22 Feb, 2013 [facility] [place] [facility] [address] [id number] [place] [address] 10 Feb, 2013 [facility] [place] [facility] [address] [id number] [place] [address] 10 Feb, 2013 [facility] [place] [facility] [address] [id number] [place] [address] 03 Sep, 2013 [facility] [place] [facility] [address] [id number] [place] [address] 03 Sep, 2013 [facility] [place] [facility] [address] [id number] [place] [address] 03 Sep, 2013 [facility] [place] [facility] [address] [id number] [place] [address] Sep, 2013 [facility] [place] [facility] [address] [id number] [place] [address] Feb, [facility] [place] [facility] [address] [id number] [place] [address] Feb, [facility] [place] [facility] [address] [id number] [place] [address] Jan, [facility] [place] [facility] [address] [id number] [place] [address] Jan, [facility] [place] [facility] [address] [id number] [place] [address] Dec, [facility] [place] [facility] [address] [id number] [place] [address] Dec, [facility] [place] [facility] [address] [id number] [place] [address] Dec, [facility] [place] [facility] [address] [id number] [place] [address] Dec, [facility] [place] [facility] [address] [id number] [place] [address] Dec, [facility] [place] [facility] [address] [id number] [place] [address] Dec, [facility] [place] [facility] [address] [id number] [place] [address] Dec, [facility] [place] [facility] [address] [id number] [place] [address] Dec, [facility] [place] [facility] [address] [id number] [place] [address] Dec, [facility] [place] [facility] [address] [id number] [place] [address] Dec, [facility] [place] [facility] [address] [id number] [place] [address] Dec, [facility] [place] [facility] [address] [id number] [place] [address] Dec, [facility] [place] [facility] [address] [id number] [place] [address] Dec, 2013 [facility] [place] [facility] [address] [id number] [place] [address] Dec, 2013 [facility] [place] [facility] [address] [id number] [place] [address] Dec, 2013 [facility] [place] [facility] [address] [id number] [place] [address] Dec, 2013 [facility] [place] [facility] [address] [id number] [place] [address] Dec, 2013 [facility] [place] [facility] [address] [id number] [place] [address] Dec, [facility] [place] [facility] [address] [id number] [place] [address] Dec, [facility] [place] [facility] [address] [id number] [place] [address] Nov, [facility] [place] [facility] [address] [id number] [place] [address] Nov, [facility] [place] [facility] [address] [id number] [place] [address] Nov, [facility] [place] [facility] [address] [id number] [place] [address] Nov, [facility] [place] [facility] [address] [id number] [place] [address] Nov, [facility] [place] [facility] [address] [id number] [place] [address] Nov, [facility] [place] [facility] [address] [id number] [place] [address] Nov, [facility] [place] [facility] [address] [id number] [place] [address] Nov, [facility] [place] [facility] [address] [id number] [place] [address] Nov, [facility] [place] [facility] [address] [id number] [place] [address] October, [facility] [address] [id number] [place] [address] October, [facility] [address] [id number] [place] [address] October, [facility] [address] [id number] [place] [address] October, [facility] [address] [id number] [place] [address] October, [facility] [address] [id number] [place] [address] October, [facility] [address] [id number] [place] [address] October, [facility] [address] [id number] [place] [address] October, [facility] [address] [id number] [place] [address] Sep, [facility] [address] [id number] [place] [address] Sep, [facility] [address] [id number] [place] [address] Sep, [facility] [place] [facility] [address] [id number] [place] [address] Sep, [facility] [address] [id number] [place] [address] Sep, [facility] [place] [facility] [address] [id number] [place] [address] Sep, [facility] [place] [facility] [address] [id number] [place] [address] Sep, [facility] [place] [facility] [address] [id number] [place] [address] Aug, [facility] [place] [facility] [address] [id number] [place] [address] Aug, [facility] [place] [facility] [address] [id number] [place] [address] Aug, [facility] [place] [facility] [address] [id number] [place] [address] Aug, [facility] [place] [facility] [address] [id number] [place] [address] Aug, [facility] [place] [facility] [address] [id number] [place] [address] Aug, [facility] [place] [facility] [address] [id number] [place] [address] Jul, [facility] [place] [facility] [address] [id number] [place] [address] Jul, [facility] [place] [facility] [address] [id number] [place] [address] Jul, [facility] [place] [facility] [address] [id number] [place] [address] Jul, [facility] [place] [facility] [address] [id number] [place] [address] Jul, [facility] [place] [facility] [address] [id number] [place] [address] Jul, [facility] [place] [facility] [address] [id number] [place] [address] Jun, [facility] [place] [facility] [address] [id number] [place] [address] Jun, [facility] [place] [facility] [address] [id number] [place] [address] Jun, [facility] [place] [facility] [address] [id number] [place] [address] Jun, [facility] [place] [facility] [address] [id number] [place] [address] Jun, [facility] [address] [id number] [place] [address] Jun, [facility] [address] [id number] [place] [address] Jun, [facility] [address] [id number] [place] [address] Jun, [facility] [address] [id number] [place] [address] Jun, [facility] [address] [id number] [place] [address] Jun, [facility] [address] [id number] [place] [address] Jun, [facility] [address] [id number] [place] [address] Jun, [facility] [address] [id number] [place] [address] Jun, [facility] [address] [id number] [place] [address] May, [facility] [address] [id number] [place] [address] May, [facility] [address] [id number] [place] [address] 30 May, 2013 [facility] [address] [id number] [place] [address] 30 May, 2013 [facility] [place] [facility] [address] [id number] [place] [address] May, [facility] [place] [facility] [address] [id number] [place] [address] 14 May, 2013 [facility] [address] [id number] [place] [address] 14 May, 2013 [facility] [address] [id number] [place] [address] 12 May, 2013 [facility] [place] [facility] [address] [id number] [place] [address] May, [facility] [place] [facility] [address] [id number] [place] [address] May, [facility] [place] [facility] [address] [id number] [place] [address] May, [facility] [address] [id number] [place] [address] May, [facility] [place] [facility] [address] [id number] [place] [address] May, [facility] [place] [facility] [address] [facility] [id number] [place] [address] May, [facility] [place] [facility] [address] [id number] [place] [address] May, [facility] [place] [facility] [address] [id number] [place] [address] May, [facility] [place] [facility] [address] [id number] [place] [address] May, [facility] [place] [facility] [address] [facility] [id number] [address] May, [facility] [place] [facility] [address] [id number], [place] [address] May, [facility] [place] [facility] [address] [id number] [place] [address] May, [facility] [place] [facility] [address] [id number] [place] [address] May, [facility] [place] [facility] [address] [facility] [id number] [address] Apr, [facility] [place] [facility] [address] [id number], [place] [address] Apr, [facility] [address] [id number] [place] [address] Apr, [facility] [place] [facility] [address] [id number] [place] [address] Apr, [facility] [place] [facility] [address] [id number] [place] [address] Mar, [facility] [place] [facility] [address] [id number] [place] [address] 23 Feb, 2013 [facility] [place] [facility] [address] [id number] [place] [address] 16 Feb, 2013 [facility] [place] [facility] [address] [id number] [place] [address] 13 Feb, 2013 [facility] [place] [facility] [address] [id number] [place] [address] 10 Feb, 2013 [facility] [place] [facility] [address] [id number] [place] [address] Feb, [facility] [place] [facility] [address] [id number] [place] [address] Feb, [facility] [place] [facility] [address] [id number] [place] [address] Jan, [facility] [place] [facility] [address] [id number] [place] [address] Jan, [facility] [place] [facility] [address] [id number] [place] [address] Jan, [facility] [place] [facility] [address] [id number] [place] [address] Dec, [facility] [place] [facility] [address] [id number] [place] [address] Dec, [facility] [place] [facility] [address] [id number] [place] [address] Dec, [facility] [place] [facility] [address] [id number] [place] [address] 15 Dec, 2012 [facility] [place] [facility] [address] [id number] [place] [address] Dec, [facility] [place] [facility] [address] [id number] [place] [address] Nov, [facility] [place] [facility] [address] [id number] [place] [address] Nov, [facility] [place] [facility] [address] [id number] [place] [address] Nov, [facility] [place] [facility] [address] [id number] [place] [address] Nov, [facility] [place] [facility] [address] [id number] [place] [address] Nov, [facility] [place] [facility] [address] [id number] [place] [address] 08 Nov, 2012 [facility] [place] [facility] [address] [id number] [place] [address] Nov, [facility] [place] [facility] [address] [id number] [place] [address] Nov, [facility] [place] [facility] [address] [id number] [place] [address] 05 Nov, 2012 [facility] [place] [facility] [address] [id number] [place] [address] Nov, [facility] [place] [facility] [address] [id number] [place] [address] October, [facility] [place] [facility] [address] [id number] [place] [address] October, [facility] [place] [facility] [address] [id number] [place] [address] Sep, [facility] [place] [facility] [address] [id number] [place] [address] Sep, [facility] [address] [id number] [place] [address] 08 Sep, 2012 [facility] [place] [facility] [address] [id number] [place] [address] Sep, [facility] [place] [facility] [address] [id number] [place] [address] Sep, [facility] [place] [facility] [address] [id number] [place] [address] Aug, [facility] [place] [facility] [address] [id number] [place] [address] Aug, [facility] [place] [facility] [address] [id number] [place] [address] Jul, [facility] [place] [facility] [address] [id number] [place] [address] Jul, [facility] [place] [facility] [address] [id number] [place] [address] Jun, [facility] [place] [facility] [address] [id number] [place] [address] Jun, [facility] [place] [facility] [address] [id number] [place] [address] May, [facility] [place] [facility] [address] [id number] [place] [address] May, [facility] [place] [facility] [address] [id number], [place] [address] May, [facility] [place] [facility] [address] [id number] [place] [address] May, [facility] [place] [facility] [address] [id number] [place] [address] Apr, [facility] [place] [facility] [address] [id number] [place] [address] Apr, [facility] [place] [facility] [address] [id number] [place] [address] Apr, [facility] [place] [facility] [address] [id number] [place] [address] Apr, [facility] [place] [facility] [address] [id number] [place] [address] Apr, [facility] [place] [facility] [address] [id number] [place] [address] 14 Apr, 2012 [facility] [place] [facility] [address] [id number] [place] [address] 14 Apr, 2012 [facility] [place] [facility] [address] [id number] [place] [address] Apr, [facility] [place] [facility] [address] [id number] [place] [address] Apr, [facility] [place] [facility] [address] [id number] [place] [address] 15 Mar, 2012 [facility] [place] [facility] [address] [id number] [place] [address] Mar, [facility] [place] [facility] [address] [id number] [place] [address] Feb, [facility] [place] [facility] [address] [id number] [place] [address] Jan, [facility] [place] [facility] [address] [id number] [place] [address] Jan, [facility] [place] [facility] [address] [id number] [place] [address] Dec, [facility] [place] [facility] [address] [id number] [place] [address] Nov, [facility] [place] [facility] [address] [id number] [place] [address] Nov, [facility] [place] [facility] [address] [id number] [place] [address] October, [facility] [place] [facility] [address] [id number] [place] [address] October, [facility] [place] [facility] [address] [id number] [place] [address] Sep, [facility] [place] [facility] [address] [id number] [place] [address] Sep, [facility] [place] [facility] [address] [id number] [place] [address] May, [facility] [place] [facility] [address] [id number] [place] [address] Apr, [facility] [place] [facility] [address] [id number] [place] [address] Apr, [facility] [place] [facility] [address] [id number] [place] [address] Apr, [facility] [place] [facility] [address] [id number] [place] [address] Apr, [facility] [place] [facility] [address] [id number] [place] [address] Apr, [facility] [place] [facility] [address] [id number] [place] [address] Apr, [facility] [place] [facility] [address] [id number] [place] [address] Apr, [facility] [place] [facility] [address] [id number], [place] [address] Apr, [facility] [place] [facility] [address] [id number] [place] [address] Mar, [facility] [place] [facility] [address] [id number] [place] [address] Mar, [facility] [place] [facility] [address] [id number] [place] [address] Mar, [facility] [place] [facility] [address] [id number] [place] [address] Mar, [facility] [address] [facility] [id number] [place] [address] Mar, [facility] [address] [facility] [id number] [place] [address] Mar, IMMUNIZATIONS No Known Immunizations SOCIAL HISTORY Never Assessed REASON FOR VISIT med clarification PLAN OF CARE VITAL SIGNS MEDICATIONS Medication Instructions Dosage Frequency Start Date End Date Duration Status Amoxicillin-Pot Clavulanate 500-125 MG Orally every 12 hrs 1 tablet 12h Mar, 7 days Active RESULTS No Results PROCEDURES No Known procedures INSTRUCTIONS MEDICATIONS ADMINISTERED No Known Medications MEDICAL (GENERAL) HISTORY Type Description Date Medical History HTN Medical History Depression Medical History Arthritis Surgical History Breast lump removed Surgical History Removal of cyst from ovary Surgical History cholecystectomy Surgical History Stomach surgeryx3 Hospitalization History Mental floor at [facility]
--- OUTSIDE RECORDS SUMMARY | 2018-10-27 16:11 | XMS REPORT ---
Author Author ERIC BINGHAM [facility] Address [address] [place] [address] Care Team Providers [employer] Name Role Phone ERIC BINGHAM Unavailable PROBLEMS Type Condition ICD9-CM Code [id number] Code Onset Dates Condition Status SNOMED Code Problem Presbyopia H52.4 Active 50969454 Problem Unspecified open-angle glaucoma, stage unspecified H40.10X0 Feb, Active 72125569 Problem Nondependent 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 Active 420781762 Problem Neuropathy G62.9 Active 358621118 Problem Unspecified epilepsy without mention of intractable epilepsy G40.909 Active 06449378 Problem Chronic tension-type headache, intractable G44.221 Active 743703957 Problem Other chronic pain G89.29 Active 158399985 Problem Multinodular goiter E04.2 Active 177520574 Problem Acquired hypothyroidism E03.9 Active 329021379 Problem Goiter E04.9 Active 1233073 Problem Urge incontinence of urine N39.41 Active 94289995 Problem BMI 40.0-44.9, adult Z68.41 Active 753198028 Problem Rheumatoid arthritis M06.9 Active 94863335 Problem Hyperlipidemia, unspecified E78.5 Active 19876031 Problem Hypertension I10 Active 41868549 Problem Carpal tunnel syndrome of left wrist G56.02 Active [id number] Problem Cough R05 Active 66495885 Problem Reactive airway disease without complication, unspecified asthma severity, unspecified whether persistent J45.909 Active 763792901294 Problem Chronic obstructive pulmonary disease, unspecified COPD type J44.9 Active 70136064 Problem Depression F32.9 Active 84241660 Problem Right-sided low back pain without sciatica M54.5 Active 466106639 Problem Esophageal reflux K21.9 Active 413344895 Problem Depressive disorder F32.9 Active 15423216 Problem Anxiety disorder, unspecified F41.9 Active 130421875 Problem Thyroid nodule E04.1 Active 448918460 Problem Arthralgia M25.50 Active 54151757 Problem Insomnia G47.00 Active 201471592 ALLERGIES No Information ENCOUNTERS Encounter Location Date Diagnosis [place] [id number] [place] [address] Apr, [place] [address] [address] Apr, Nonintractable episodic headache, unspecified headache type R51 ; Urge incontinence of urine N39.41 ; BMI 40.0-44.9, adult Z68.41 ; Myalgia M79.10 and Acute cystitis without hematuria N30.00 [place] [address] [address] 31 Mar, 2018 Nasal congestion R09.81 ; Low back pain M54.5 ; Reactive airway disease without complication, unspecified asthma severity, unspecified whether persistent J45.909 ; Other chronic pain G89.29 ; Acute cystitis with hematuria N30.01 and BMI 40.0-44.9, adult Z68.41 [place] [address] [address] Mar, Acute cystitis with hematuria N30.01 [facility] [id number] [place] [address] Mar, BMI 40.0-44.9, adult Z68.41 ; Acute cystitis with hematuria N30.01 ; Acute bilateral low back pain without sciatica M54.5 and Nausea R11.0 [facility] [id number] [place] [address] Mar, Hypertension I10 ; Acquired hypothyroidism E03.9 ; Esophageal reflux K21.9 ; Chronic obstructive pulmonary disease, unspecified COPD type J44.9 and BMI 40.0-44.9, adult Z68.41 [place] [id number] [place] [address] Mar, Hypertension I10 [facility] [address] [address] Nov, Hyperlipidemia, unspecified E78.5 [place] [address] [address] October, Chest pain, unspecified type R07.9 and Acquired hypothyroidism E03.9 [place] [address] [address] October, Chest pain, unspecified type R07.9 ; Family history of coronary artery disease Z82.49 ; Carpal tunnel syndrome of left wrist G56.02 ; Hypertension I10 ; Esophageal reflux K21.9 ; Arthralgia M25.50 ; Acquired hypothyroidism E03.9 ; Cough R05 ; Nausea R11.0 ; Weight gain R63.5 and BMI 45.0-49.9, adult Z68.[address] [address] Jun, Acquired hypothyroidism E03.9 and Cough R05 [place] [address] [address] May, [address] [address] Feb, Tarsal tunnel syndrome of both lower extremities G57.53 and Neuropathy G62.[address] [address] Dec, Pleuritis R09.1 [place] [address] [address] Nov, [place] [address] [address] October, Arthralgia, unspecified joint M25.50 and Allergy, initial encounter T78.40XA [place] [address] [address] October, [place] [address] [address] October, Acute recurrent maxillary sinusitis J01.01 and Arthralgia M25.50 [place] [address] [address] Sep, Pharyngitis due to other organism J02.8 [place] [id number] [place] [address] Aug, Acute nasopharyngitis J00 [place] [address] [address] Aug, Multinodular goiter E04.[address] [address] Aug, Thyroid nodule E04.1 [place] [id number] [place] [address] 17 Jul, 2016 Tarsal tunnel syndrome of both lower extremities G57.[address] [address] Jun, Pneumonia due to infectious organism, unspecified laterality, unspecified part of lung J18.9 [place] [id number] [place] [address] Jun, Bronchospasm with bronchitis, acute J20.9 [place] [id number] [place] [address] May, Acute non-recurrent frontal sinusitis J01.10 [facility] [id number] [place] [address] May, Flat foot [pes planus] (acquired), left foot M21.42 ; Flat foot [pes planus] (acquired), right foot M21.41 and Neuropathy G62.9 [place] [id number] [place] [address] Apr, Chronic tension-type headache, intractable G44.221 ; Right lower quadrant abdominal pain R10.31 ; Cervicalgia M54.2 ; Acute gastritis without hemorrhage, unspecified gastritis type K29.00 and Hypertension I10 [place] [address] [address] Mar, Depression F32.9 and Anxiety disorder, unspecified F41.9 [place] [address] [address] Feb, Depressive disorder F32.9 and Anxiety disorder, unspecified F41.9 [place] [address] [address] Jan, Dysuria R30.0 ; Lower abdominal pain R10.30 ; Acute bilateral low back pain without sciatica M54.5 ; Nausea and vomiting, unspecified intactability, vomiting of unspecified type R11.2 ; Pain in right foot M79.671 and Pain of left foot M79.672 [place] [address] [address] Dec, Urinary tract infection, site not specified N39.0 [place] [address] [address] Dec, [place] [address] [address] Nov, [place] [address] [address] Nov, Dysuria R30.0 [place] [address] [address] Nov, Dysuria R30.0 and Acute cystitis with hematuria N30.01 [place] [address] [address] October, Nausea R11.0 [place] [address] [address] October, Thyroid nodule E04.1 ; Carpal tunnel syndrome, left upper limb G56.02 ; Carpal tunnel syndrome, right upper limb G56.01 and Constipation, unspecified constipation type K59.00 [place] [address] [address] October, [place] [address] [address] October, Thyroid nodule E04.1 [place] [address] [address] October, Cold thyroid nodule E04.1 [place] [address] [address] October, [place] [address] [address] Sep, Thyroid nodule E04.1 [place] [address] [address] Sep, Thyroid nodule E04.1 [place] [address] [address] Sep, Thyroid nodule E04.1 ; Hypertension I10 ; Esophageal reflux K21.9 and Hyperlipidemia, unspecified E78.5 [place] [id number] [place] [address] Aug, Other chronic pain G89.29 ; Sinusitis J32.9 and Hypertension I10 [place] [id number] [place] [address] Jul, [place] [address] [address] Jul, [place] [address] [address] Jul, Insomnia G47.00 and Arthralgia M25.50 [place] [address] [address] Jul, Depressive disorder F32.9 and Anxiety disorder, unspecified F41.9 [facility] [id number] [place] [address] May, Right-sided low back pain without sciatica M54.5 and Depression F32.9 [facility] [id number] [place] [address] Apr, Hematuria R31.9 [facility] [id number] [place] [address] Mar, Other chronic pain G89.29 [facility] [id number] [place] [address] Mar, Other chronic pain G89.29 [facility] [id number] [place] [address] Feb, [facility] [id number] [place] [address] Feb, Other chronic pain 338.29 ; Dysuria 788.1 ; UTI (urinary tract infection) 599.0 ; Insomnia 780.52 ; Hot flashes 627.2 and Hypertension 401.9 [facility] [id number] [place] [address] Feb, Dysuria 788.1 [facility] [id number] [place] [address] Feb, [facility] [id number] [place] [address] Jan, [facility] [id number] [place] [address] Jan, [facility] [id number] [place] [address] Jan, Fibromyalgia 729.1 ; Hypertension 401.9 ; Dysthymia 300.4 and Hot flashes 627.2 [facility] [id number] [place] [address] Dec, [facility] [address] [id number] [place] [address] Dec, [facility] [place] [facility] [address] [id number] [place] [address] Dec, [facility] [place] [facility] [address] [id number] [place] [address] Nov, Other chronic pain 338.29 [facility] [place] [facility] [address] [id number] [place] [address] October, [facility] [place] [facility] [address] [id number] [place] [address] October, [facility] [place] [facility] [address] [id number] [place] [address] Sep, [facility] [place] [facility] [address] [id number] [place] [address] Sep, [facility] [place] [facility] [address] [id number] [place] [address] Aug, [facility] [place] [facility] [address] [id number] [place] [address] Aug, [facility] [place] [facility] [address] [id number] [place] [address] Aug, [facility] [place] [facility] [address] [id number] [place] [address] Aug, [facility] [place] [facility] [address] [id number] [place] [address] Aug, [facility] [place] [facility] [address] [id number] [place] [address] Aug, [facility] [place] [facility] [address] [id number] [place] [address] Aug, [facility] [place] [facility] [address] [id number] [place] [address] Aug, [facility] [place] [facility] [address] [id number] [place] [address] Aug, [facility] [place] [facility] [address] [id number] [place] [address] Aug, [facility] [place] [facility] [address] [id number] [place] [address] Aug, [facility] [place] [facility] [address] [id number] [place] [address] Aug, [facility] [place] [facility] [address] [id number] [place] [address] Aug, [facility] [place] [facility] [address] [id number] [place] [address] Aug, [facility] [place] [facility] [address] [facility] [id number] [place] [address] Jul, [facility] [place] [facility] [address] [id number] [place] [address] Jul, [facility] [place] [facility] [address] [id number] [place] [address] Jul, [facility] [place] [facility] [address] [facility] [id number] [place] [address] Jul, [facility] [place] [facility] [address] [facility] [id number] [place] [address] Jul, [facility] [place] [facility] [address] [facility] [id number] [place] [address] Jul, [facility] [place] [facility] [address] [id number] [place] [address] Jun, [facility] [place] [facility] [address] [id number] [place] [address] Jun, [facility] [place] [facility] [address] [facility] [id number] [place] [address] Jun, [facility] [place] [facility] [address] [facility] [id number] [place] [address] Jun, [facility] [place] [facility] [address] [id number] [place] [address] May, [facility] [place] [facility] [address] [id number] [place] [address] May, [facility] [place] [facility] [address] [facility] [id number] [place] [address] May, [facility] [place] [facility] [address] [id number] [place] [address] May, [facility] [place] [facility] [address] [id number] [place] [address] May, [facility] [place] [facility] [address] [id number] [place] [address] May, [facility] [place] [facility] [address] [id number] [place] [address] May, [facility] [place] [facility] [address] [id number] [place] [address] May, [facility] [place] [facility] [address] [id number] [place] [address] May, [facility] [place] [facility] [address] [id number] [place] [address] May, [facility] [place] [facility] [address] [id number] [place] [address] Apr, [facility] [place] [facility] [address] [id number], [place] [address] Apr, [facility] [place] [facility] [address] [id number] [place] [address] Apr, [facility] [place] [facility] [address] [id number] [place] [address] Apr, [facility] [place] [facility] [address] [id number] [place] [address] Apr, [facility] [place] [facility] [address] [id number] [place] [address] 08 Apr, 2014 [facility] [place] [facility] [address] [id number] [place] [address] 08 Apr, 2014 [facility] [place] [facility] [address] [id number] [place] [address] Apr, [facility] [place] [facility] [address] [id number] [place] [address] Apr, [facility] [place] [facility] [address] [id number] [place] [address] Mar, [facility] [place] [facility] [address] [id number] [place] [address] Mar, [facility] [place] [facility] [address] [id number] [place] [address] Mar, [facility] [place] [facility] [address] [id number] [place] [address] Mar, [facility] [place] [facility] [address] [id number] [place] [address] Mar, [facility] [place] [facility] [address] [id number] [place] [address] Mar, [facility] [place] [facility] [address] [facility] [id number] [place] [address] Mar, [facility] [place] [facility] [address] [id number] [place] [address] Mar, [facility] [place] [facility] [address] [id number] [place] [address] 30 Feb, 2014 [facility] [place] [facility] [address] [id number] [place] [address] 30 Feb, 2014 [facility] [place] [facility] [address] [id number] [place] [address] Feb, [facility] [place] [facility] [address] [id number] [place] [address] 24 Feb, 2014 [facility] [place] [facility] [address] [id number] [place] [address] Feb, 2013 [facility] [place] [facility] [address] [id number] [place] [address] Feb, 2013 [facility] [place] [facility] [address] [id number] [place] [address] Feb, 2013 [facility] [place] [facility] [address] [id number] [place] [address] Feb, 2013 [facility] [place] [facility] [address] [id number] [place] [address] Feb, 2013 [facility] [place] [facility] [address] [id number] [place] [address] Feb, 2013 [facility] [place] [facility] [address] [id number] [place] [address] Feb, 2013 [facility] [place] [facility] [address] [id number] [place] [address] Feb, 2013 [facility] [place] [facility] [address] [id number] [place] [address] Feb, 2013 [facility] [place] [facility] [address] [id number] [place] [address] Feb, 2013 [facility] [place] [facility] [address] [id number] [place] [address] Jan, [facility] [place] [facility] [address] [id number] [place] [address] Jan, [facility] [place] [facility] [address] [id number] [place] [address] Dec, [facility] [place] [facility] [address] [id number] [place] [address] Dec, [facility] [place] [facility] [address] [id number] [place] [address] Dec, [facility] [place] [facility] [address] [id number] [place] [address] Dec, 2013 [facility] [place] [facility] [address] [id number] [place] [id number] Dec, 2013 [facility] [place] [facility] [address] [id number] [place] [address] Dec, 2013 [facility] [place] [facility] [address] [id number] [place] [address] Dec, 2013 [facility] [place] [facility] [address] [id number] [place] [address] Dec, 2013 [facility] [place] [facility] [address] [id number] [place] [address] Dec, [facility] [place] [facility] [address] [id number] [place] [address] Dec, 2013 [facility] [place] [facility] [address] [id number] [place] [address] Dec, [facility] [place] [facility] [address] [id number] [place] [address] Dec, [facility] [place] [facility] [address] [id number] [place] [address] Dec, [facility] [place] [facility] [address] [id number] [place] [address] Dec, [facility] [place] [facility] [address] [id number] [place] [address] Dec, [facility] [place] [facility] [address] [id number] [place] [address] Dec, [facility] [place] [facility] [address] [id number] [place] [address] Dec, [facility] [place] [facility] [address] [id number] [place] [address] Dec, [facility] [place] [facility] [address] [id number] [place] [address] Dec, [facility] [place] [facility] [address] [id number] [place] [address] Nov, [facility] [place] [facility] [address] [id number] [place] [address] Nov, [facility] [place] [facility] [address] [id number] [place] [address] Nov, [facility] [place] [facility] [address] [id number] [place] [address] Nov, [facility] [place] [facility] [address] [id number] [place] [address] Nov, [facility] [place] [facility] [address] [id number] [place] [address] Nov, [facility] [place] [facility] [address] [id number] [place] [address] Nov, [facility] [place] [facility] [address] [id number] [place] [address] Nov, [facility] [place] [facility] [address] [id number] [place] [address] Nov, [facility] [place] [facility] [address] [id number] [place] [address] October, [facility] [place] [facility] [address] [id number] [place] [address] October, [facility] [place] [facility] [address] [id number] [place] [address] October, [facility] [place] [facility] [address] [id number] [place] [address] October, [facility] [place] [facility] [address] [id number] [place] [address] October, [facility] [place] [facility] [address] [id number] [place] [address] October, [facility] [place] [facility] [address] [id number] [place] [address] October, [facility] [place] [facility] [address] [id number] [place] [address] October, [facility] [place] [facility] [address] [id number] [place] [address] Sep, [facility] [place] [facility] [address] [id number] [place] [address] Sep, [facility] [place] [facility] [address] [id number] [place] [address] Sep, [facility] [place] [facility] [address] [id number] [place] [address] Sep, [facility] [place] [facility] [address] [id number] [place] [address] Sep, [facility] [place] [facility] [address] [id number] [place] [address] Sep, [facility] [place] [facility] [address] [id number] [place] [address] Sep, [facility] [place] [facility] [address] [id number] [place] [address] Aug, [facility] [place] [facility] [address] [id number] [place] [address] Aug, [facility] [place] [facility] [address] [id number] [place] [address] Aug, [facility] [place] [facility] [address] [id number], [place] [address] Aug, [facility] [place] [facility] [address] [id number] [place] [address] Aug, [facility] [place] [facility] [address] [id number] [place] [address] Aug, [facility] [place] [facility] [address] [id number] [place] [address] Jul, [facility] [place] [facility] [address] [id number], [place] [address] Jul, [facility] [place] [facility] [address] [id number] [place] [address] Jul, [facility] [place] [facility] [address] [id number] [place] [address] Jul, [facility] [place] [facility] [address] [id number] [place] [address] Jul, [facility] [place] [facility] [address] [id number] [place] [address] Jul, [facility] [place] [facility] [address] [id number] [place] [address] Jun, [facility] [place] [facility] [address] [id number] [place] [address] Jun, [facility] [place] [facility] [address] [id number] [place] [address] Jun, [facility] [place] [facility] [address] [id number] [place] [address] Jun, [facility] [place] [facility] [address] [id number] [place] [address] Jun, [facility] [place] [facility] [address] [id number] [place] [address] Jun, [facility] [place] [facility] [address] [id number] [place] [address] Jun, [facility] [place] [facility] [address] [id number] [place] [address] Jun, [facility] [place] [facility] [address] [id number] [place] [address] Jun, [facility] [place] [facility] [address] [id number] [place] [address] Jun, [facility] [place] [facility] [address] [id number] [place] [address] Jun, [facility] [place] [facility] [address] [id number] [place] [address] 14 Jun, 2013 [facility] [address] [id number] [place] [address] 14 Jun, 2013 [facility] [address] [id number] [place] [address] 30 May, 2013 [facility] [address] [id number] [place] [address] May, [facility] [address] [id number] [place] [address] May, [facility] [address] [id number] [place] [address] May, [facility] [address] [id number] [place] [address] May, [facility] [address] [id number] [place] [address] May, [facility] [address] [id number] [place] [address] May, [facility] [address] [id number] [place] [address] May, [facility] [address] [id number] [place] [address] May, [facility] [address] [id number] [place] [address] May, [facility] [place] [facility] [address] [id number] [place] [address] May, [facility] [place] [facility] [address] [id number] [place] [address] May, [facility] [place] [facility] [address] [id number] [place] [address] May, [facility] [place] [facility] [address] [id number], [place] [address] May, [facility] [address] [id number] [place] [address] 09 May, 2013 [facility] [place] [facility] [address] [id number], [place] [address] 08 May, 2013 [facility] [place] [facility] [address] [address] [id number] [place] [address] May, [facility] [place] [facility] [address] [id number], [place] [address] May, [facility] [place] [facility] [address] [id number] [place] [address] May, [facility] [place] [facility] [address] [id number] [place] [address] May, [facility] [address] [id number], [place] [address] May, [facility] [place] [facility] [address] [id number], [place] [address] Apr, [facility] [place] [facility] [address] [id number], [place] [address] Apr, [facility] [place] [facility] [address] [id number], [place] [address] Apr, [facility] [place] [facility] [address] [id number], [place] [address] Apr, [facility] [place] [facility] [address] [id number], [place] [address] 08 Mar, 2013 [facility] [place] [facility] [address] [id number], [place] [address] 23 Feb, 2013 [facility] [place] [facility] [address] [id number], [place] [address] 16 Sep2012 [facility] [place] [facility] [address] [id number], [place] [address] 13 Feb, 2013 [facility] [place] [facility] [address] [id number] [place] [address] 10 Feb, 2013 [facility] [address] [id number] [place] [address] Feb, [facility] [place] [facility] [address] [id number] [place] [address] Feb, [facility] [address] [id number] [place] [address] Jan, [facility] [address] [id number] [place] [address] Jan, [facility] [address] [id number] [place] [address] Jan, [facility] [address] [id number] [place] [address] Dec, [facility] [address] [id number] [place] [address] Dec, [facility] [address] [id number] [place] [address] Dec, [facility] [address] [id number] [place] [address] Dec, [facility] [address] [id number] [place] [address] Dec, [facility] [address] [id number] [place] [address] Nov, [facility] [address] [id number] [place] [address] Nov, [facility] [place] [facility] [address] [id number] [place] [address] Nov, [facility] [place] [facility] [address] [id number] [place] [address] Nov, [facility] [place] [facility] [address] [id number] [place] [address] Nov, [facility] [address] [id number] [place] [address] 08 Nov, 2012 [facility] [place] [facility] [address] [id number] [place] [address] Nov, [facility] [place] [facility] [address] [id number] [place] [address] Nov, [facility] [place] [facility] [address] [id number] [place] [address] Nov, [facility] [place] [facility] [address] [id number] [place] [address] Nov, [facility] [place] [facility] [address] [id number] [place] [address] October, [facility] [place] [facility] [address] [id number] [place] [address] October, [facility] [place] [facility] [address] [id number] [place] [address] Sep, [facility] [place] [facility] [address] [id number] [place] [address] Sep, [facility] [place] [facility] [address] [id number] [place] [address] Sep, [facility] [place] [facility] [address] [id number] [place] [address] Sep, [facility] [place] [facility] [address] [id number], [place] [address] Sep, [facility] [place] [facility] [address] [id number] [place] [address] Aug, [facility] [place] [facility] [address] [id number] [place] [address] Aug, [facility] [place] [facility] [address] [id number] [place] [address] Jul, [facility] [place] [facility] [address] [id number] [place] [address] Jul, [facility] [address] [id number] [place] [address] Jun, [facility] [place] [facility] [address] [id number] [place] [address] Jun, [facility] [place] [facility] [address] [id number] [place] [address] May, [facility] [place] [facility] [address] [id number] [place] [address] May, [facility] [place] [facility] [address] [id number] [place] [address] May, [facility] [place] [facility] [address] [id number] [place] [address] May, [facility] [place] [facility] [address] [id number] [place] [address] Apr, [facility] [place] [facility] [address] [id number] [place] [address] 27 Apr, 2012 [facility] [place] [facility] [address] [id number] [place] [address] Apr, [facility] [place] [facility] [address] [id number] [place] [address] Apr, [facility] [place] [facility] [address] [id number] [place] [address] Apr, [facility] [place] [facility] [address] [id number] [place] [address] 14 Apr, 2012 [facility] [place] [facility] [address] [id number] [place] [address] 14 Apr, 2012 [facility] [place] [facility] [address] [id number] [place] [address] Apr, [facility] [place] [facility] [address] [id number] [place] [address] Apr, [facility] [place] [facility] [address] [id number] [place] [address] Mar, [facility] [place] [facility] [address] [id number] [place] [address] Mar, [facility] [place] [facility] [address] [id number] [place] [address] Feb, [facility] [place] [facility] [address] [id number] [place] [address] Jan, [facility] [place] [facility] [address] [id number] [place] [address] Jan, [facility] [place] [facility] [address] [id number] [place] [address] Dec, [facility] [place] [facility] [address] [id number] [place] [address] Nov, [facility] [place] [facility] [address] [id number] [place] [address] Nov, [facility] [place] [facility] [address] [id number] [place] [address] October, [facility] [place] [facility] [address] [id number] [place] [address] October, [facility] [place] [facility] [address] [id number] [place] [address] Sep, [facility] [place] [facility] [address] [id number] [place] [address] Sep, [facility] [place] [facility] [address] [id number] [place] [address] May, [facility] [place] [facility] [address] [id number] [place] [address] Apr, [facility] [place] [facility] [address] [id number] [place] [address] Apr, [facility] [place] [facility] [address] [id number], [place] [address] Apr, [facility] [address] [facility] [id number][place] [address] 15 Apr, 2011 [facility] [address] [facility] [id number], [place] [address] Apr, [facility] [address] [facility] [id number], [place] [address] Apr, [facility] [address] [facility] [id number], [place] [address] Apr, [facility] [address] [facility] [id number], [place] [address] Apr, [facility] [address] [facility] [id number], [place] [address] Mar, [facility] [address] [facility] [id number], [place] [address] Mar, [facility] [address] [facility] [id number], [place] [address] Mar, [facility] [address] [facility] [id number], [place] [address] Mar, [facility] [address] [facility] [id number], [place] [address] Mar, [facility] [address] [facility] [id number], [place] [address] Mar, IMMUNIZATIONS No Known Immunizations SOCIAL HISTORY Never Assessed REASON FOR VISIT Send med PLAN OF CARE VITAL SIGNS MEDICATIONS Unknown Medications RESULTS No Results PROCEDURES No Known procedures INSTRUCTIONS MEDICATIONS ADMINISTERED No Known Medications MEDICAL (GENERAL) HISTORY Type Description Date Medical History HTN Medical History Depression Medical History Arthritis Surgical History Breast lump removed Surgical History Removal of cyst from ovary Surgical History cholecystectomy Surgical History Stomach surgeryx3 Hospitalization History Mental floor at [facility]
--- OUTSIDE RECORDS SUMMARY | 2018-10-27 16:12 | XMS REPORT ---
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 Name Role Phone SURESH ANDRADE Unavailable PROBLEMS Type Condition ICD9-CM Code TFF43-XP Code Onset Dates Condition Status SNOMED Code Problem Thyroid nodule E04.1 Active 046258547 Problem Chronic tension-type headache, intractable G44.221 Active 098478357 Problem Neuropathy G62.9 Active 533461279 Problem Chronic obstructive pulmonary disease, unspecified COPD type J44.9 Active 33364787 Problem Other chronic pain G89.29 Active 366403936 Problem Carpal tunnel syndrome of left wrist G56.02 Active 849181651620476 Problem Unspecified epilepsy without mention of intractable epilepsy G40.909 Active 84658621 Problem Nondependent 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 Active 413946605 Problem Goiter E04.9 Active 3273655 Problem Multinodular goiter E04.2 Active 129843645 Problem Cough R05 Active 90710796 Problem Acquired hypothyroidism E03.9 Active 363205390 Problem Rheumatoid arthritis M06.9 Active 21036524 Problem Esophageal reflux K21.9 Active 118497655 Problem Hypertension I10 Active 82103871 Problem Hyperlipidemia, unspecified E78.5 Active 16408696 Problem Right-sided low back pain without sciatica M54.5 Active 322473596 Problem Arthralgia M25.50 Active 19411275 Problem Presbyopia H52.4 Active 51589601 Problem Depressive disorder F32.9 Active 41729856 Problem Insomnia G47.00 Active 247246827 Problem Unspecified open-angle glaucoma, stage unspecified H40.10X0 Feb, Active 95326482 Problem Depression F32.9 Active 72295240 Problem Anxiety disorder, unspecified F41.9 Active 999787712 ALLERGIES Substance Reaction Event Type Date Status Penicillin V Potassium anaphylaxis Drug Allergy Mar, Active ENCOUNTERS Encounter Location Date Diagnosis [place] [id number] [place] [address] Mar, Hypertension I10 ; Acquired hypothyroidism E03.9 ; Esophageal reflux K21.9 ; Chronic obstructive pulmonary disease, unspecified COPD type J44.9 and BMI 40.0-44.9, adult Z68.41 [place] [address] [address] Mar, Hypertension I10 [place] [address] [address] Nov, Hyperlipidemia, unspecified E78.5 [place] [address] [address] October, Chest pain, unspecified type R07.9 and Acquired hypothyroidism E03.9 [place] [address] [address] October, Chest pain, unspecified type R07.9 ; Family history of coronary artery disease Z82.49 ; Carpal tunnel syndrome of left wrist G56.02 ; Hypertension I10 ; Esophageal reflux K21.9 ; Arthralgia M25.50 ; Acquired hypothyroidism E03.9 ; Cough R05 ; Nausea R11.0 ; Weight gain R63.5 and BMI 45.0-49.9, adult Z68.42 [place] [id number] [place] [address] Jun, Acquired hypothyroidism E03.9 and Cough R05 [place] [id number] [place] [address] May, [place] [address] [address] Feb, Tarsal tunnel syndrome of both lower extremities G57.53 and Neuropathy G62.9 [place] [address] [address] Dec, Pleuritis R09.1 [place] [address] [place] [address] Nov, [place] [id number] [place] [address] October, Arthralgia, unspecified joint M25.50 and Allergy, initial encounter T78.40XA [place] [address] [address] October, [place] [address] [address] October, Acute recurrent maxillary sinusitis J01.01 and Arthralgia M25.50 [place] [address] [address] Sep, Pharyngitis due to other organism J02.8 [place] [address] [address] Aug, Acute nasopharyngitis J00 [place] [address] [address] Aug, Multinodular goiter E04.2 [place] [address] [address] Aug, Thyroid nodule E04.1 [place] [id number] [place] [address] Jul, Tarsal tunnel syndrome of both lower extremities G57.53 [place] [id number] [place] [address] Jun, Pneumonia due to infectious organism, unspecified laterality, unspecified part of lung J18.9 [place] [address] [address] Jun, Bronchospasm with bronchitis, acute J20.9 [place] [id number] [place] [address] May, Acute non-recurrent frontal sinusitis J01.10 [place] [id number] [place] [address] May, Flat foot [pes planus] (acquired), left foot M21.42 ; Flat foot [pes planus] (acquired), right foot M21.41 and Neuropathy G62.9 [place] [id number] [place] [address] Apr, Chronic tension-type headache, intractable G44.221 ; Right lower quadrant abdominal pain R10.31 ; Cervicalgia M54.2 ; Acute gastritis without hemorrhage, unspecified gastritis type K29.00 and Hypertension I10 [place] [address] [address] Mar, Depression F32.9 and Anxiety disorder, unspecified F41.9 [place] [id number] [place] [address] Feb, Depressive disorder F32.9 and Anxiety disorder, unspecified F41.9 [place] [id number] [place] [address] Jan, Dysuria R30.0 ; Lower abdominal pain R10.30 ; Acute bilateral low back pain without sciatica M54.5 ; Nausea and vomiting, unspecified intactability, vomiting of unspecified type R11.2 ; Pain in right foot M79.671 and Pain of left foot M79.672 [place] [id number] [place] [address] Dec, Urinary tract infection, site not specified N39.0 [place] [id number] [place] [address] Dec, [place] [address] [address] Nov, [place] [id number] [place] [address] Nov, Dysuria R30.0 [place] [address] [place] [address] Nov, Dysuria R30.0 and Acute cystitis with hematuria N30.01 [place] [address] [address] October, Nausea R11.0 [place] [address] [address] October, Thyroid nodule E04.1 ; Carpal tunnel syndrome, left upper limb G56.02 ; Carpal tunnel syndrome, right upper limb G56.01 and Constipation, unspecified constipation type K59.00 [place] [address] [address] October, [place] [address] [address] October, Thyroid nodule E04.1 [place] [address] [address] October, Cold thyroid nodule E04.1 [place] [address] [address] October, [place] [address] [address] Sep, Thyroid nodule E04.1 [place] [address] [address] Sep, Thyroid nodule E04.1 [place] [address] [address] Sep, Thyroid nodule E04.1 ; Hypertension I10 ; Esophageal reflux K21.9 and Hyperlipidemia, unspecified E78.5 [place] [address] [address] Aug, Other chronic pain G89.29 ; Sinusitis J32.9 and Hypertension I10 [place] [address] [address] Jul, [facility] [id number] [place] [address] 15 Jul, 2015 [facility] [id number] [place] [address] 10 Jul, 2015 Insomnia G47.00 and Arthralgia M25.50 [facility] [id number] [place] [address] 10 Jul, 2015 Depressive disorder F32.9 and Anxiety disorder, unspecified F41.9 [place] [id number] [place] [address] May, Right-sided low back pain without sciatica M54.5 and Depression F32.9 [place] [id number] [place] [address] Apr, Hematuria R31.[address] [address] Mar, Other chronic pain G89.29 [place] [id number] [place] [address] Mar, Other chronic pain G89.29 [place] [id number] [place] [address] Feb, [place] [id number] [place] [address] 22 Feb, 2015 Other chronic pain 338.29 ; Dysuria 788.1 ; UTI (urinary tract infection) 599.0 ; Insomnia 780.52 ; Hot flashes 627.2 and Hypertension 401.9 [place] [id number] [place] [address] 14 Feb, 2015 Dysuria 788.1 [place] [id number] [place] [address] 02 Feb, 2015 [facility] [id number] [place] [address] Jan, [facility] [id number] [address] Jan, [facility] [address] [address] Jan, Fibromyalgia 729.1 ; Hypertension 401.9 ; Dysthymia 300.4 and Hot flashes 627.2 [facility] [address] [facility] [id number] [address] Dec, [facility] [address] [facility] [id number], [place] [address] Dec, [facility] [id number] [place] [address] Dec, [facility] [id number] [place] [address] Nov, Other chronic pain 338.29 [facility] [address] [address] October, [facility] [address], [place] [address] October, [facility] [address], [place] [address] Sep, [facility] [address], [place] [address] Sep, [facility] [address], [place] [address] Aug, [facility] [id number] [address] Aug, [facility] [address], [place] [address] Aug, [facility] [address], [place] [address] Aug, [facility] [address], [place] [address] Aug, [facility] [place] [facility] [address] [id number] [place] [address] Aug, [facility] [place] [facility] [address] [facility] [id number] [place] [address] Aug, [facility] [place] [facility] [address] [facility] [id number] [place] [address] Aug, [facility] [place] [facility] [address] [facility] [id number] [place] [address] Aug, [facility] [place] [facility] [address] [id number] [place] [address] Aug, [facility] [place] [facility] [address] [facility] [id number] [place] [address] Aug, [facility] [place] [facility] [id number] [address] Aug, [facility] [place] [facility] [address] [facility] [id number] [place] [address] Aug, [facility] [place] [facility] [id number] [address] Aug, [facility] [place] [facility] [address] [facility] [id number] [place] [address] Jul, [facility] [place] [facility] [address] [facility] [id number] [place] [address] Jul, 2014 [facility] [place] [facility] [address] [facility] [id number], [place] [address] Jul, 2014 [facility] [place] [facility] [address] [id number] [place] [address] Jul, 2014 [facility] [place] [facility] [address] [facility] [id number], [place] [address] Jul, 2014 [facility] [place] [facility] [address] [facility] [id number] [address] Jul, [facility] [place] [facility] [address] [id number] [place] [address] Jun, [facility] [place] [facility] [address] [id number] [place] [address] Jun, [facility] [place] [facility] [address] [id number] [place] [address] Jun, [facility] [place] [facility] [address] [id number] [place] [address] Jun, [facility] [place] [facility] [address] [id number] [place] [address] May, [facility] [place] [facility] [address] [id number] [place] [address] May, [facility] [place] [facility] [address] [id number] [place] [address] May, [facility] [place] [facility] [address] [id number] [place] [address] May, [facility] [place] [facility] [address] [id number] [place] [address] May, [facility] [place] [facility] [address] [id number] [place] [address] May, [facility] [place] [facility] [address] [id number] [place] [address] May, [facility] [place] [facility] [address] [id number] [place] [address] May, [facility] [place] [facility] [address] [id number] [place] [address] May, [facility] [place] [facility] [address] [id number] [place] [address] May, [facility] [place] [facility] [address] [id number] [place] [address] Apr, [facility] [place] [facility] [address] [id number], [place] [address] Apr, [facility] [place] [facility] [address] [id number] [place] [address] Apr, [facility] [place] [facility] [address] [id number] [place] [address] Apr, [facility] [place] [facility] [address] [id number] [place] [address] Apr, [facility] [place] [facility] [address] [id number] [place] [address] Apr, [facility] [place] [facility] [address] [id number] [place] [address] Apr, [facility] [place] [facility] [address] [id number] [place] [address] Apr, [facility] [place] [facility] [address] [id number] [place] [address] Apr, [facility] [place] [facility] [address] [id number] [place] [address] Mar, [facility] [place] [facility] [address] [id number] [place] [address] Mar, [facility] [place] [facility] [address] [id number] [place] [address] Mar, [facility] [place] [facility] [address] [id number], [place] [address] Mar, [facility] [place] [facility] [address] [id number], [place] [address] Mar, [facility] [place] [facility] [address] [id number], [place] [address] Mar, [facility] [place] [facility] [address] [id number], [place] [address] Mar, [facility] [place] [facility] [address] [id number] [place] [address] Mar, [facility] [place] [facility] [address] [id number] [place] [address] 30 Sep, 2013 [facility] [place] [facility] [address] [id number] [place] [address] 30 Sep, 2013 [facility] [place] [facility] [address] [id number] [place] [address] 24 Sep, 2013 [facility] [place] [facility] [address] [id number] [place] [address] 24 Sep, 2013 [facility] [place] [facility] [address] [id number] [place] [address] 22 Feb, 2013 [facility] [place] [facility] [address] [id number] [place] [address] 22 Feb, 2013 [facility] [place] [facility] [address] [id number] [place] [address] 10 Feb, 2013 [facility] [place] [facility] [address] [id number] [place] [address] 10 Feb, 2013 [facility] [place] [facility] [address] [id number] [place] [address] 03 Sep, 2013 [facility] [place] [facility] [address] [id number] [place] [address] 03 Feb, 2013 [facility] [place] [facility] [address] [id number] [place] [address] 03 Sep, 2013 [facility] [place] [facility] [address] [id number] [place] [address] Sep, 2013 [facility] [place] [facility] [address] [id number] [place] [address] Sep, 2013 [facility] [place] [facility] [address] [id number] [place] [address] Feb, 2013 [facility] [place] [facility] [address] [id number] [place] [address] Jan, [facility] [place] [facility] [address] [id number] [place] [address] Jan, [facility] [place] [facility] [address] [id number] [place] [address] Dec, [facility] [place] [facility] [address] [id number] [place] [address] Dec, [facility] [place] [facility] [address] [id number] [place] [address] Dec, [facility] [place] [facility] [address] [id number] [place] [address] Dec, [facility] [place] [facility] [address] [id number] [place] [id number] Dec, [facility] [place] [facility] [address] [id number] [place] [address] Dec, [facility] [place] [facility] [address] [id number] [place] [address] Dec, [facility] [place] [facility] [address] [id number] [place] [address] Dec, [facility] [place] [facility] [address] [id number] [place] [address] Dec, [facility] [place] [facility] [address] [id number] [place] [address] Dec, [facility] [place] [facility] [address] [id number] [place] [address] Dec, [facility] [place] [facility] [address] [id number] [place] [address] Dec, [facility] [place] [facility] [address] [id number] [place] [address] Dec, [facility] [place] [facility] [address] [id number] [place] [address] Dec, [facility] [place] [facility] [address] [id number] [place] [address] Dec, [facility] [place] [facility] [address] [id number] [place] [address] Dec, [facility] [place] [facility] [address] [id number] [place] [address] Dec, [facility] [place] [facility] [address] [id number] [place] [address] Dec, [facility] [place] [facility] [address] [id number] [place] [address] Dec, [facility] [place] [facility] [address] [id number] [place] [address] Nov, [facility] [place] [facility] [address] [id number] [place] [address] Nov, [facility] [place] [facility] [address] [id number] [place] [address] Nov, [facility] [place] [facility] [address] [id number] [place] [address] Nov, [facility] [place] [facility] [address] [id number] [place] [address] Nov, [facility] [place] [facility] [address] [id number] [place] [address] Nov, [facility] [place] [facility] [address] [id number] [place] [address] Nov, [facility] [place] [facility] [address] [id number] [place] [address] Nov, [facility] [place] [facility] [address] [id number] [place] [address] Nov, [facility] [place] [facility] [address] [id number] [place] [address] October, [facility] [place] [facility] [address] [id number] [place] [address] October, [facility] [place] [facility] [address] [id number] [place] [address] October, [facility] [place] [facility] [address] [id number] [place] [address] October, [facility] [place] [facility] [address] [id number] [place] [address] October, [facility] [place] [facility] [address] [id number] [place] [address] October, [facility] [place] [facility] [address] [id number] [place] [address] October, [facility] [place] [facility] [address] [id number] [place] [address] October, [facility] [place] [facility] [address] [id number] [place] [address] Sep, [facility] [place] [facility] [address] [id number] [place] [address] Sep, [facility] [place] [facility] [address] [id number] [place] [address] Sep, [facility] [place] [facility] [address] [id number] [place] [address] Sep, [facility] [place] [facility] [address] [id number] [place] [address] Sep, [facility] [place] [facility] [address] [id number] [place] [address] Sep, [facility] [place] [facility] [address] [id number] [place] [address] Sep, [facility] [place] [facility] [address] [id number] [place] [address] Aug, [facility] [place] [facility] [address] [id number] [place] [address] Aug, [facility] [place] [facility] [address] [id number] [place] [address] Aug, [facility] [place] [facility] [address] [id number] [place] [address] Aug, [facility] [place] [facility] [address] [id number] [place] [address] Aug, [facility] [place] [facility] [address] [id number] [place] [address] Aug, [facility] [place] [facility] [address] [id number] [place] [address] Jul, [facility] [place] [facility] [address] [id number] [place] [address] Jul, [facility] [place] [facility] [address] [id number] [place] [address] Jul, [facility] [place] [facility] [address] [id number] [place] [address] Jul, [facility] [place] [facility] [address] [id number] [place] [address] Jul, [facility] [place] [facility] [address] [id number] [place] [address] Jul, [facility] [place] [facility] [address] [id number] [place] [address] Jun, [facility] [place] [facility] [address] [id number] [place] [address] Jun, [facility] [place] [facility] [address] [id number] [place] [address] Jun, [facility] [place] [facility] [address] [id number] [place] [address] Jun, [facility] [place] [facility] [address] [id number] [place] [address] Jun, [facility] [place] [facility] [address] [id number] [place] [address] Jun, [facility] [place] [facility] [address] [id number] [place] [address] Jun, [facility] [place] [facility] [address] [id number] [place] [address] Jun, [facility] [address] [id number] [place] [address] 16 Jun, 2013 [facility] [place] [facility] [address] [id number] [place] [address] 14 Jun, 2013 [facility] [address] [id number] [place] [address] 14 Jun, 2013 [facility] [address] [id number] [place] [address] 14 Jun, 2013 [facility] [address] [id number] [place] [address] Jun, [facility] [address] [id number] [place] [address] 30 May, 2013 [facility] [address] [id number] [place] [address] 30 May, 2013 [facility] [address] [id number] [place] [address] 30 May, 2013 [facility] [address] [id number] [place] [address] 30 May, 2013 [facility] [address] [id number] [place] [address] 26 May, 2013 [facility] [place] [facility] [address] [id number] [place] [address] 14 May, 2013 [facility] [address] [id number] [place] [address] 14 May, 2013 [facility] [place] [facility] [address] [id number] [place] [address] May, [facility] [place] [facility] [address] [id number] [place] [address] May, [facility] [place] [facility] [address] [id number] [place] [address] May, [facility] [address] [id number] [place] [address] May, [facility] [place] [facility] [address] [id number] [place] [address] May, [facility] [place] [facility] [address] [id number] [place] [address] May, [facility] [place] [facility] [address] [id number] [place] [address] May, [facility] [address] [id number] [place] [address] May, [facility] [place] [facility] [address] [id number] [place] [address] May, [facility] [place] [facility] [address] [id number] [place] [address] May, [facility] [place] [facility] [address] [id number] [place] [address] May, [facility] [place] [facility] [address] [id number] [place] [address] May, [facility] [place] [facility] [address] [id number] [address] May, [facility] [place] [facility] [address] [id number], [place] [address] May, [facility] [place] [facility] [address] [id number] [address] Apr, [facility] [place] [facility] [address] [id number] [place] [address] Apr, [facility] [place] [facility] [address] [id number] [address] Apr, [facility] [place] [facility] [address] [id number] [place] [address] Apr, [facility] [place] [facility] [address] [id number] [place] [address] 08 Mar, 2013 [facility] [address] [id number] [place] [address] 23 Feb, 2012 [facility] [place] [facility] [address] [id number] [place] [address] 16 Feb, 2013 [facility] [place] [facility] [address] [id number] [place] [address] 13 Feb, 2012 [facility] [place] [facility] [address] [id number] [place] [address] 10 Feb, 2012 [facility] [place] [facility] [address] [id number] [place] [address] 09 Feb, 2013 [facility] [place] [facility] [address] [id number] [place] [address] 09 Feb, 2013 [facility] [address] [id number] [place] [address] Jan, [facility] [place] [facility] [address] [id number] [place] [address] Jan, [facility] [place] [facility] [address] [id number] [place] [address] Jan, [facility] [place] [facility] [address] [id number] [place] [address] Dec, [facility] [place] [facility] [address] [id number] [place] [address] Dec, [facility] [place] [facility] [address] [id number] [place] [address] Dec, [facility] [place] [facility] [address] [id number] [place] [address] 15 Dec, 2012 [facility] [place] [facility] [address] [id number] [place] [address] Dec, [facility] [place] [facility] [address] [id number] [place] [address] Nov, [facility] [place] [facility] [address] [id number] [place] [address] 26 Nov, 2012 [facility] [place] [facility] [address] [id number] [place] [address] Nov, [facility] [place] [facility] [address] [id number] [place] [address] 13 Nov, 2012 [facility] [place] [facility] [address] [id number] [place] [address] Nov, [facility] [place] [facility] [address] [id number] [place] [address] Nov, [facility] [place] [facility] [address] [id number] [place] [address] Nov, [facility] [place] [facility] [address] [id number] [place] [address] Nov, [facility] [place] [facility] [address] [id number] [place] [address] Nov, [facility] [place] [facility] [address] [id number] [place] [address] Nov, [facility] [place] [facility] [address] [id number] [place] [address] October, [facility] [place] [facility] [address] [id number] [place] [address] October, [facility] [place] [facility] [address] [id number] [place] [address] Sep, [facility] [place] [facility] [address] [id number] [place] [address] Sep, [facility] [place] [facility] [address] [id number] [place] [address] Sep, [facility] [place] [facility] [address] [id number] [place] [address] Sep, [facility] [place] [facility] [address] [id number] [place] [address] Sep, [facility] [place] [facility] [address] [id number] [place] [address] Aug, [facility] [place] [facility] [address] [id number] [place] [address] Aug, [facility] [place] [facility] [address] [id number] [place] [address] Jul, [facility] [place] [facility] [address] [id number] [place] [address] Jul, [facility] [place] [facility] [address] [id number] [place] [address] Jun, [facility] [place] [facility] [address] [id number] [place] [address] Jun, [facility] [address] [id number] [place] [address] May, [facility] [place] [facility] [address] [id number] [place] [address] May, [facility] [place] [facility] [address] [id number] [place] [address] May, [facility] [place] [facility] [address] [id number] [place] [address] May, [facility] [place] [facility] [address] [id number], [place] [address] Apr, [facility] [place] [facility] [address] [id number], [place] [address] Apr, [facility] [place] [facility] [address] [id number] [place] [address] Apr, [facility] [place] [facility] [address] [id number] [place] [address] Apr, [facility] [place] [facility] [address] [id number] [place] [address] Apr, [facility] [place] [facility] [address] [id number] [place] [address] 14 Apr, 2012 [facility] [place] [facility] [address] [id number] [place] [address] 14 Apr, 2012 [facility] [place] [facility] [address] [id number] [place] [address] Apr, [facility] [place] [facility] [address] [id number] [place] [address] Apr, [facility] [place] [facility] [address] [id number] [place] [address] 15 Mar, 2012 [facility] [place] [facility] [address] [id number] [place] [address] Mar, [facility] [place] [facility] [address] [id number] [place] [address] Feb, [facility] [place] [facility] [address] [id number] [place] [address] Jan, [facility] [place] [facility] [address] [id number] [place] [address] Jan, [facility] [place] [facility] [address] [id number] [place] [address] Dec, [facility] [place] [facility] [address] [id number] [place] [address] Nov, [facility] [place] [facility] [address] [id number] [place] [address] Nov, [facility] [place] [facility] [address] [id number] [place] [address] October, [facility] [place] [facility] [address] [id number] [place] [address] October, [facility] [place] [facility] [address] [id number] [place] [address] Sep, [facility] [place] [facility] [address] [id number] [place] [address] Sep, [facility] [address] [id number], [place] [address] May, [facility] [address] [id number], [place] [address] Apr, [facility] [address] [facility] [id number], [place] [address] Apr, [facility] [address] [id number], [place] [address] Apr, [facility] [address] [facility] [id number] [place] [address] Apr, [facility] [address] [facility] [id number], [place] [address] Apr, [facility] [address] [facility] [id number], [place] [address] Apr, [facility] [address] [facility] [id number], [place] [address] Apr, [facility] [address] [facility] [id number], [place] [address] Apr, [facility] [address] [facility] [id number], [place] [address] Mar, [facility] [address] [facility] [id number], [place] [address] Mar, [facility] [address] [facility] [id number], [place] [address] Mar, [facility] [address] [facility] [id number], [place] [address] Mar, [facility] [address] [facility] [id number], [place] [address] Mar, [facility] [address] [facility] [id number], [place] [address] Mar, IMMUNIZATIONS No Known Immunizations SOCIAL HISTORY Never Assessed REASON FOR VISIT hosp f/u Pt in for follow up from ER for BP Has been out of meds for about 6 mo [facility] Pt states she is feeling exhausted PETER Kern PLAN OF CARE Activity Details Follow Up 3 Months Reason:Thyroid VITAL SIGNS Height 62 in 2018-03-29 Weight 234.5 lbs 2018-03-29 Temperature 98.4 degrees Fahrenheit 2018-03-29 Heart Rate 86 bpm 2018-03-29 Respiratory Rate 20 2018-03-29 BMI 42.89 kg/m2 2018-03-29 Blood pressure systolic 122 mmHg 2018-03-29 Blood pressure diastolic 78 mmHg 2018-03-29 MEDICATIONS Medication Instructions Dosage Frequency Start Date End Date Duration Status Lipitor 40 MG Orally Once a day 1 tablet 24h Nov, 30 day(s) Not-Taking Lisinopril-Hydrochlorothiazide 20-25 MG Orally Once a day 1 tablet in the morning 24h 90 days Active Omeprazole 20 mg Orally Once a day 1 capsule 24h October, 90 days Active Zofran ODT 4 MG Orally every 8 hrs as needed for nausea 1 tablet on the tongue and allow to dissolve Jan, 30 days Not-Taking Mobic 15 MG Orally Once a day 1 tablet 24h 30 days Not-Taking Ventolin HFA 108 (90 Base) MCG/ACT Inhalation every 6 hrs 2 puffs as needed 6h Jun, 30 days Active Bactrim DS 800-160 MG Orally Twice a day 1 tablet 12h Mar, Mar, 7 days Active Levothyroxine Sodium 50 mcg Orally Once a day 1 tablet on an empty stomach in the morning 24h Aug, 90 days Active RESULTS No Results PROCEDURES No Known procedures INSTRUCTIONS MEDICATIONS ADMINISTERED No Known Medications MEDICAL (GENERAL) HISTORY Type Description Date Medical History HTN Medical History Depression Medical History Arthritis Surgical History Breast lump removed Surgical History Removal of cyst from ovary Surgical History cholecystectomy Surgical History Stomach surgeryx3 Hospitalization History Mental floor at [facility]
--- OUTSIDE RECORDS SUMMARY | 2018-10-27 16:12 | XMS REPORT ---
Author Author KATELYN SHERIFF [facility] Address [address] [place] [address] Care Team Providers Care Focus Puller Name Role Phone KATELYN SHERIFF Unavailable PROBLEMS Type Condition ICD9-CM Code MTG94-EA Code Onset Dates Condition Status SNOMED Code Problem Anxiety disorder, unspecified F41.9 Active 423269847 Problem Neuropathy G62.9 Active 570450014 Problem Thyroid nodule E04.1 Active 579463381 Problem Cough R05 Active 87309632 Problem Unspecified epilepsy without mention of intractable epilepsy G40.909 Active 23495812 Problem Carpal tunnel syndrome of left wrist G56.02 Active [id number] Problem Nondependent 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 Active 424218463 Problem Unspecified open-angle glaucoma, stage unspecified H40.10X0 Feb, Active 35269885 Problem Multinodular goiter E04.2 Active 034769921 Problem Chronic tension-type headache, intractable G44.221 Active 115221602 Problem Acquired hypothyroidism E03.9 Active 316837770 Problem Goiter E04.9 Active 1133065 Problem Hyperlipidemia, unspecified E78.5 Active 87177032 Problem Rheumatoid arthritis M06.9 Active 88794522 Problem Other chronic pain G89.29 Active 531204032 Problem Hypertension I10 Active 08821040 Problem Right-sided low back pain without sciatica M54.5 Active 894717538 Problem Depression F32.9 Active 46171912 Problem Esophageal reflux K21.9 Active 471820333 Problem Arthralgia M25.50 Active 91821719 Problem Presbyopia H52.4 Active 57577106 Problem Depressive disorder F32.9 Active 25470042 Problem Insomnia G47.00 Active 820915141 ALLERGIES No Information ENCOUNTERS Encounter Location Date Diagnosis [facility] [address] [facility] [id number] [address] Mar, [facility] [address] [place] [id number] [place] [address] Mar, Hypertension I10 [place] [address] [address] Nov, Hyperlipidemia, unspecified E78.5 [place] [address] [address] October, Chest pain, unspecified type R07.9 and Acquired hypothyroidism E03.9 [place] [address] [id number] [place] [address] October, Chest pain, unspecified type R07.9 ; Family history of coronary artery disease Z82.49 ; Carpal tunnel syndrome of left wrist G56.02 ; Hypertension I10 ; Esophageal reflux K21.9 ; Arthralgia M25.50 ; Acquired hypothyroidism E03.9 ; Cough R05 ; Nausea R11.0 ; Weight gain R63.5 and BMI 45.0-49.9, adult Z68.42 [place] [address] [id number] [place] [address] Jun, Acquired hypothyroidism E03.9 and Cough R05 [place] [id number] [place] [address] May, [place] [id number] [place] [address] Feb, Tarsal tunnel syndrome of both lower extremities G57.53 and Neuropathy G62.9 [place] [id number] [place] [address] Dec, Pleuritis R09.1 [place] [address] [address] Nov, [place] [id number] [place] [address] October, Arthralgia, unspecified joint M25.50 and Allergy, initial encounter T78.40XA [place] [address] [place] [id number] [place] [address] October, [place] [id number] [place] [address] October, Acute recurrent maxillary sinusitis J01.01 and Arthralgia M25.50 [place] [address] [address] Sep, Pharyngitis due to other organism J02.8 [place] [address] [address] Aug, Acute nasopharyngitis J00 [place] [address] [address] Aug, Multinodular goiter E04.2 [place] [address] [address] Aug, Thyroid nodule E04.1 [place] [address] [address] [id number] [place] [address] Jul, Tarsal tunnel syndrome of both lower extremities G57.53 [place] [address] [address] Jun, Pneumonia due to infectious organism, unspecified laterality, unspecified part of lung J18.9 [place] [address] [id number] [place] [address] Jun, Bronchospasm with bronchitis, acute J20.9 [place] [address] [id number] [place] [address] May, Acute non-recurrent frontal sinusitis J01.10 [place] [address] [address] May, Flat foot [pes planus] (acquired), left foot M21.42 ; Flat foot [pes planus] (acquired), right foot M21.41 and Neuropathy G62.9 [place] [address] [place] [address] Apr, Chronic tension-type headache, intractable G44.221 ; Right lower quadrant abdominal pain R10.31 ; Cervicalgia M54.2 ; Acute gastritis without hemorrhage, unspecified gastritis type K29.00 and Hypertension I10 [place] [address] [address] Mar, Depression F32.9 and Anxiety disorder, unspecified F41.9 [place] [address] [address] Feb, Depressive disorder F32.9 and Anxiety disorder, unspecified F41.9 [place] [address] [address] Jan, Dysuria R30.0 ; Lower abdominal pain R10.30 ; Acute bilateral low back pain without sciatica M54.5 ; Nausea and vomiting, unspecified intactability, vomiting of unspecified type R11.2 ; Pain in right foot M79.671 and Pain of left foot M79.672 [place] [address] [address] Dec, Urinary tract infection, site not specified N39.0 [place] [address] [address] [id number] [place] [address] Dec, [place] [address] [address] Nov, [place] [address] [address] Nov, Dysuria R30.0 [place] [address] [address] Nov, Dysuria R30.0 and Acute cystitis with hematuria N30.01 [place] [address] [address] [id number] [place] [address] October, Nausea R11.0 [place] [address] [address] October, Thyroid nodule E04.1 ; Carpal tunnel syndrome, left upper limb G56.02 ; Carpal tunnel syndrome, right upper limb G56.01 and Constipation, unspecified constipation type K59.00 [place] [address] [address] October, [place] [address] [address] October, Thyroid nodule E04.1 [place] [address] [address] October, Cold thyroid nodule E04.1 [place] [address] [address] October, [place] [address] [address] Sep, Thyroid nodule E04.1 [place] [address] [address] Sep, Thyroid nodule E04.1 [place] [address] [address] Sep, Thyroid nodule E04.1 ; Hypertension I10 ; Esophageal reflux K21.9 and Hyperlipidemia, unspecified E78.5 [place] [address] [address] Aug, Other chronic pain G89.29 ; Sinusitis J32.9 and Hypertension I10 [place] [address] [address] Jul, [place] [address] [address] 15 Jul, 2015 [place] [address] [address] [id number] [place] [address] Jul, Insomnia G47.00 and Arthralgia M25.50 [place] [id number] [place] [address] 10 Jul, 2015 Depressive disorder F32.9 and Anxiety disorder, unspecified F41.9 [place] [address] [place] [id number] [place] [address] May, Right-sided low back pain without sciatica M54.5 and Depression F32.9 [place] [address] [id number] [place] [address] Apr, Hematuria R31.9 [place] [address] [address] Mar, Other chronic pain G89.29 [place] [address] [place] [id number] [place] [address] Mar, Other chronic pain G89.29 [place] [address] [id number] [place] [address] Feb, [place] [address] [address] [id number] [place] [address] Feb, Other chronic pain 338.29 ; Dysuria 788.1 ; UTI (urinary tract infection) 599.0 ; Insomnia 780.52 ; Hot flashes 627.2 and Hypertension 401.9 [place] [address] [address] [id number] [place] [address] Feb, Dysuria 788.1 [place] [address] [address] [id number] [place] [address] Feb, [place] [address] [id number] [place] [address] Jan, [place] [address] [address] Jan, [place] [address] [id number] [place] [address] Jan, Fibromyalgia 729.1 ; Hypertension 401.9 ; Dysthymia 300.4 and Hot flashes 627.2 [facility] [address] [facility] [id number] [place] [address] Dec, [facility] [address] [facility] [id number] [place] [address] Dec, [facility] [address] [facility] [id number] [place] [address] Dec, [facility] [address] [facility] [id number], [place] [address] Nov, Other chronic pain 338.29 [facility] [address] [facility] [id number] [place] [address] October, [facility] [address] [facility] [id number] [place] [address] October, [facility] [address] [place] [id number] [place] [address] Sep, [facility] [address] [facility] [id number] [place] [address] Sep, [facility] [address] [address] [id number] [place] [address] Aug, [facility] [address] [id number] [place] [address] Aug, [facility] [address] [id number] [place] [address] Aug, [facility] [address] [facility] [id number], [place] [address] Aug, [facility] [address] [facility] [id number] [place] [address] Aug, [facility] [address] [facility] [id number] [place] [address] Aug, [facility] [address] [id number], [place] [address] Aug, [facility] [place] [facility] [address] [id number] [place] [address] Aug, [facility] [place] [facility] [address] [id number] [place] [address] Aug, [facility] [place] [facility] [address] [id number] [place] [address] Aug, [facility] [place] [facility] [address] [id number] [place] [address] Aug, [facility] [place] [facility] [address] [id number] [place] [address] Aug, [facility] [place] [facility] [address] [id number] [place] [address] Aug, [facility] [place] [facility] [address] [facility] [id number] [place] [address] Aug, [facility] [place] [facility] [address] [id number] [place] [address] Jul, [facility] [place] [facility] [address] [id number] [place] [address] Jul, [facility] [place] [facility] [address] [facility] [id number] [place] [address] Jul, [facility] [place] [facility] [address] [facility] [id number] [place] [address] Jul, [facility] [place] [facility] [address] [id number], [place] [address] Jul, [facility] [place] [facility] [address] [id number] [place] [address] Jul, [facility] [place] [facility] [address] [id number] [place] [address] Jun, [facility] [place] [facility] [address] [id number], [place] [address] Jun, [facility] [place] [facility] [address] [id number], [place] [address] Jun, [facility] [place] [facility] [address] [id number] [place] [address] Jun, [facility] [place] [facility] [address] [id number] [place] [address] May, [facility] [place] [facility] [address] [id number] [place] [address] May, [facility] [place] [facility] [address] [id number] [place] [address] May, [facility] [place] [facility] [address] [id number] [place] [address] May, [facility] [place] [facility] [address] [id number] [place] [address] May, [facility] [place] [facility] [address] [facility] [id number] [place] [address] May, [facility] [place] [facility] [address] [id number] [place] [address] May, [facility] [place] [facility] [address] [id number] [place] [address] May, [facility] [place] [facility] [address] [facility] [id number] [place] [address] May, [facility] [place] [facility] [address] [id number] [place] [address] May, [facility] [place] [facility] [address] [id number] [place] [address] Apr, [facility] [place] [facility] [address] [id number] [place] [address] Apr, [facility] [place] [facility] [address] [id number] [place] [address] Apr, [facility] [place] [facility] [address] [facility] [id number] [place] [address] Apr, [facility] [place] [facility] [address] [id number] [place] [address] Apr, [facility] [place] [facility] [address] [id number] [place] [address] Apr, [facility] [place] [facility] [address] [id number] [place] [address] Apr, [facility] [place] [facility] [address] [id number] [place] [address] Apr, [facility] [place] [facility] [address] [id number] [place] [address] Apr, [facility] [place] [facility] [address] [id number] [place] [address] Mar, [facility] [place] [facility] [address] [id number] [place] [address] Mar, [facility] [place] [facility] [address] [id number] [place] [address] Mar, [facility] [place] [facility] [address] [id number] [place] [address] Mar, [facility] [place] [facility] [address] [id number] [place] [address] Mar, [facility] [place] [facility] [address] [facility] [id number] [place] [address] Mar, [facility] [place] [facility] [address] [id number] [place] [address] Mar, [facility] [place] [facility] [address] [id number] [place] [address] Mar, [facility] [place] [facility] [address] [id number] [place] [address] 30 Feb, 2014 [facility] [place] [facility] [address] [id number] [place] [address] 30 Feb, 2014 [facility] [place] [facility] [address] [id number] [place] [address] 24 Feb, 2013 [facility] [place] [facility] [address] [id number] [place] [address] 24 Feb, 2013 [facility] [place] [facility] [address] [id number] [place] [address] Feb, 2013 [facility] [place] [facility] [address] [id number] [place] [address] Feb, 2013 [facility] [place] [facility] [address] [id number] [place] [address] 10 Feb, 2013 [facility] [place] [facility] [address] [id number] [place] [address] 10 Feb, 2013 [facility] [place] [facility] [address] [id number] [place] [address] Feb, 2013 [facility] [place] [facility] [address] [id number] [place] [address] Feb, 2013 [facility] [place] [facility] [address] [id number] [place] [address] Feb, 2013 [facility] [place] [facility] [address] [id number] [place] [address] Feb, 2013 [facility] [place] [facility] [address] [id number] [place] [address] Feb, 2013 [facility] [place] [facility] [address] [id number] [place] [address] Feb, 2013 [facility] [place] [facility] [address] [id number] [place] [address] Jan, [facility] [place] [facility] [address] [id number] [place] [address] Jan, [facility] [place] [facility] [address] [id number] [place] [address] Dec, [facility] [place] [facility] [address] [id number] [place] [address] Dec, [facility] [place] [facility] [address] [id number] [place] [address] Dec, 2013 [facility] [place] [facility] [address] [id number] [place] [address] Dec, 2013 [facility] [place] [facility] [address] [id number] [place] [address] Dec, 2013 [facility] [place] [facility] [address] [id number] [place] [address] 15 Dec, 2013 [facility] [place] [facility] [address] [id number] [place] [address] Dec, 2013 [facility] [place] [facility] [address] [id number] [place] [address] Dec, 2013 [facility] [place] [facility] [address] [id number] [place] [address] Dec, 2013 [facility] [place] [facility] [address] [id number] [place] [address] Dec, 2013 [facility] [place] [facility] [address] [id number] [place] [address] Dec, 2013 [facility] [place] [facility] [address] [id number] [place] [address] Dec, 2013 [facility] [place] [facility] [address] [id number] [place] [address] Dec, [facility] [place] [facility] [address] [id number] [place] [address] Dec, 2013 [facility] [place] [facility] [address] [id number] [place] [address] Dec, 2013 [facility] [place] [facility] [address] [id number] [place] [address] Dec, 2013 [facility] [place] [facility] [address] [id number] [place] [address] Dec, 2013 [facility] [place] [facility] [address] [id number] [place] [address] Dec, [facility] [place] [facility] [address] [id number] [place] [address] Dec, [facility] [place] [facility] [address] [id number] [place] [address] Nov, [facility] [place] [facility] [address] [id number] [place] [address] Nov, [facility] [place] [facility] [address] [id number] [place] [address] Nov, [facility] [place] [facility] [address] [id number] [place] [address] Nov, [facility] [place] [facility] [address] [id number] [place] [address] Nov, [facility] [place] [facility] [address] [id number] [place] [address] Nov, [facility] [place] [facility] [address] [id number] [place] [address] Nov, [facility] [place] [facility] [address] [id number] [place] [address] Nov, [facility] [place] [facility] [address] [id number] [place] [address] Nov, [facility] [place] [facility] [address] [id number] [place] [address] October, [facility] [place] [facility] [address] [id number] [place] [address] October, [facility] [place] [facility] [address] [id number] [place] [address] October, [facility] [place] [facility] [address] [id number] [place] [address] October, [facility] [place] [facility] [address] [id number] [place] [address] October, [facility] [place] [facility] [address] [id number] [place] [address] October, [facility] [place] [facility] [address] [id number] [place] [address] October, [facility] [place] [facility] [address] [id number] [place] [address] October, [facility] [place] [facility] [address] [id number] [place] [address] Sep, [facility] [place] [facility] [address] [id number] [place] [address] Sep, [facility] [place] [facility] [address] [id number] [place] [address] Sep, [facility] [place] [facility] [address] [id number] [place] [address] Sep, [facility] [place] [facility] [address] [id number] [place] [address] Sep, [facility] [place] [facility] [address] [id number] [place] [address] Sep, [facility] [place] [facility] [address] [id number] [place] [address] Sep, [facility] [place] [facility] [address] [id number] [place] [address] Aug, [facility] [place] [facility] [address] [id number] [place] [address] Aug, [facility] [place] [facility] [address] [id number], [place] [address] Aug, [facility] [place] [facility] [address] [id number] [place] [address] Aug, [facility] [place] [facility] [address] [id number] [place] [address] Aug, [facility] [place] [facility] [address] [id number] [place] [address] Aug, [facility] [place] [facility] [address] [id number] [place] [address] Jul, [facility] [place] [facility] [address] [id number] [place] [address] Jul, [facility] [place] [facility] [address] [id number] [place] [address] Jul, [facility] [place] [facility] [address] [id number] [place] [address] Jul, [facility] [place] [facility] [address] [id number] [place] [address] Jul, [facility] [place] [facility] [address] [id number] [place] [address] Jul, [facility] [place] [facility] [address] [id number] [place] [address] Jun, [facility] [place] [facility] [address] [id number] [place] [address] Jun, [facility] [place] [facility] [address] [id number] [place] [address] Jun, [facility] [place] [facility] [address] [id number] [place] [address] Jun, [facility] [place] [facility] [address] [id number] [place] [address] Jun, [facility] [place] [facility] [address] [id number] [place] [address] Jun, [facility] [place] [facility] [address] [id number] [place] [address] Jun, [facility] [place] [facility] [address] [id number] [place] [address] Jun, [facility] [place] [facility] [address] [id number] [place] [address] Jun, [facility] [place] [facility] [address] [id number] [place] [address] 14 Jun, 2013 [facility] [place] [facility] [address] [id number] [place] [address] 14 Jun, 2013 [facility] [place] [facility] [address] [id number] [place] [address] 14 Jun, 2013 [facility] [place] [facility] [address] [id number] [place] [address] 14 Jun, 2013 [facility] [place] [facility] [address] [id number] [place] [address] 30 May, 2013 [facility] [place] [facility] [address] [id number] [place] [address] 30 May, 2013 [facility] [place] [facility] [address] [id number] [place] [address] 30 May, 2013 [facility] [place] [facility] [address] [id number] [place] [address] 30 May, 2013 [facility] [place] [facility] [address] [id number] [place] [address] 26 May, 2013 [facility] [place] [facility] [address] [id number] [place] [address] May, [facility] [place] [facility] [address] [id number] [place] [address] 14 May, 2013 [facility] [place] [facility] [address] [id number] [place] [address] 12 May, 2013 [facility] [place] [facility] [address] [id number], [place] [address] 12 May, 2013 [facility] [place] [facility] [address] [id number] [place] [address] 11 May, 2013 [facility] [place] [facility] [address] [id number] [place] [address] 11 May, 2013 [facility] [place] [facility] [address] [id number] [place] [address] 10 May, 2013 [facility] [place] [facility] [address] [id number] [place] [address] 10 May, 2013 [facility] [address] [id number] [place] [address] 09 May, 2012 [facility] [address] [id number] [place] [address] May, [facility] [address] [id number] [place] [address] 08 May, 2012 [facility] [place] [facility] [address] [id number] [place] [address] 07 May, 2013 [facility] [address] [id number] [place] [address] May, [facility] [address] [id number] [place] [address] May, [facility] [address] [id number] [place] [address] May, [facility] [address] [id number] [place] [address] May, [facility] [address] [id number] [place] [address] Apr, [facility] [address] [facility] [id number] [place] [address] Apr, [facility] [address] [id number] [place] [address] Apr, [facility] [place] [facility] [address] [id number], [place] [address] Apr, [facility] [place] [facility] [address] [id number] [place] [address] 08 Mar, 2013 [facility] [place] [facility] [address] [id number] [place] [address] 23 Feb, 2013 [facility] [place] [facility] [address] [id number], [place] [address] 16 Feb, 2013 [facility] [place] [facility] [address] [id number] [place] [address] 13 Feb, 2013 [facility] [place] [facility] [address] [id number] [place] [address] 10 Feb, 2013 [facility] [place] [facility] [address] [id number] [place] [address] Feb, [facility] [place] [facility] [address] [id number] [place] [address] Feb, [facility] [place] [facility] [address] [id number] [place] [address] Jan, [facility] [place] [facility] [address] [id number] [place] [address] Jan, [facility] [place] [facility] [address] [id number] [place] [address] Jan, [facility] [place] [facility] [address] [id number] [place] [address] Dec, [facility] [place] [facility] [address] [id number] [place] [address] Dec, [facility] [place] [facility] [address] [id number] [place] [address] Dec, [facility] [place] [facility] [address] [id number] [place] [address] Dec, [facility] [place] [facility] [address] [id number] [place] [address] Dec, [facility] [place] [facility] [address] [id number] [place] [address] Nov, [facility] [place] [facility] [address] [id number] [place] [address] Nov, [facility] [place] [facility] [address] [id number] [place] [address] Nov, [facility] [place] [facility] [address] [id number] [place] [address] 13 Nov, 2012 [facility] [address] [id number] [place] [address] 12 Nov, 2012 [facility] [place] [facility] [address] [id number] [place] [address] 08 Nov, 2012 [facility] [place] [facility] [address] [id number] [place] [address] Nov, [facility] [place] [facility] [address] [id number] [place] [address] Nov, [facility] [place] [facility] [address] [id number] [place] [address] Nov, [facility] [place] [facility] [address] [id number] [place] [address] Nov, [facility] [place] [facility] [address] [id number] [place] [address] October, [facility] [place] [facility] [address] [id number] [place] [address] October, [facility] [place] [facility] [address] [id number] [place] [address] Sep, [facility] [place] [facility] [address] [id number] [place] [address] Sep, [facility] [place] [facility] [address] [id number], [place] [address] Sep, [facility] [place] [facility] [address] [id number], [place] [address] Sep, [facility] [place] [facility] [address] [id number] [place] [address] Sep, [facility] [place] [facility] [address] [id number] [place] [address] Aug, [facility] [place] [facility] [address] [id number] [place] [address] Aug, [facility] [place] [facility] [address] [id number] [place] [address] Jul, [facility] [address] [id number] [place] [address] Jul, [facility] [address] [id number] [place] [address] Jun, [facility] [address] [id number] [place] [address] Jun, [facility] [address] [id number] [place] [address] May, [facility] [address] [id number] [place] [address] May, [facility] [address] [id number] [place] [address] May, [facility] [address] [id number] [place] [address] May, [facility] [address] [id number] [place] [address] Apr, [facility] [address] [id number] [place] [address] Apr, [facility] [address] [id number] [place] [address] Apr, [facility] [address] [id number] [place] [address] Apr, [facility] [address] [id number] [place] [address] Apr, [facility] [place] [facility] [address] [id number] [place] [address] Apr, [facility] [place] [facility] [address] [id number] [place] [address] Apr, [facility] [place] [facility] [address] [id number] [place] [address] Apr, [facility] [place] [facility] [address] [id number] [place] [address] Apr, [facility] [place] [facility] [address] [id number] [place] [address] Mar, [facility] [place] [facility] [address] [id number] [place] [address] Mar, [facility] [place] [facility] [address] [id number] [place] [address] Feb, [facility] [place] [facility] [address] [id number] [place] [address] Jan, [facility] [place] [facility] [address] [id number] [place] [address] Jan, [facility] [place] [facility] [address] [id number] [place] [address] Dec, [facility] [place] [facility] [address] [id number] [place] [address] Nov, [facility] [place] [facility] [address] [id number] [place] [address] Nov, [facility] [place] [facility] [address] [id number] [place] [address] October, [facility] [place] [facility] [address] [id number] [place] [address] October, [facility] [place] [facility] [address] [id number] [place] [address] Sep, [facility] [place] [facility] [address] [id number] [place] [address] Sep, [facility] [place] [facility] [address] [id number] [place] [address] May, [facility] [place] [facility] [address] [id number] [place] [address] Apr, [facility] [place] [facility] [address] [id number], [place] [address] Apr, [facility] [id number], [place] [address] Apr, [facility] [id number], [place] [address] Apr, [facility] [id number], [place] [address] Apr, [facility] [id number], [place] [address] Apr, [facility] [id number] [place] [address] Apr, [facility] [id number], [place] [address] Apr, [facility] [id number] [place] [address] Mar, [facility] [id number], [place] [address] Mar, [facility] [id number], [place] [address] Mar, [facility] [id number], [place] [address] Mar, [facility] [id number], [place] [address] Mar, [facility] [id number], [place] [address] Mar, IMMUNIZATIONS No Known Immunizations SOCIAL HISTORY Never Assessed REASON FOR VISIT PLAN OF CARE VITAL SIGNS MEDICATIONS Medication Instructions Dosage Frequency Start Date End Date Duration Status Lisinopril-Hydrochlorothiazide 20-25 MG Orally Once a day 1 tablet in the morning 24h 30 days Active Bactrim DS 800-160 MG Orally Twice a day 1 tablet 12h 15 Mar, 2018 Mar, 7 days Active RESULTS No Results PROCEDURES No Known procedures INSTRUCTIONS MEDICATIONS ADMINISTERED No Known Medications MEDICAL (GENERAL) HISTORY Type Description Date Medical History HTN Medical History Depression Medical History Arthritis Surgical History Breast lump removed Surgical History Removal of cyst from ovary Surgical History cholecystectomy Surgical History Stomach surgeryx3 Hospitalization History Mental floor at [facility]
--- OUTSIDE RECORDS SUMMARY | 2018-10-27 16:13 | XMS REPORT ---
Author Author SURESH ANDRADE [facility] Address [address] [place] [address] Care Team Providers Care Journeyman Level Acoustic Analyst Name Role Phone SURESH ANDRADE Unavailable PROBLEMS Type Condition ICD9-CM Code BRS65-XU Code Onset Dates Condition Status SNOMED Code Problem Anxiety disorder, unspecified F41.9 Active 876116515 Problem Neuropathy G62.9 Active 721935965 Problem Thyroid nodule E04.1 Active 011547316 Problem Cough R05 Active 57745596 Problem Unspecified epilepsy without mention of intractable epilepsy G40.909 Active 81238277 Problem Carpal tunnel syndrome of left wrist G56.02 Active 809136708760973 Problem Nondependent 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 Active 648304929 Problem Unspecified open-angle glaucoma, stage unspecified H40.10X0 Feb, Active 24368739 Problem Multinodular goiter E04.2 Active 804193294 Problem Chronic tension-type headache, intractable G44.221 Active 108857408 Problem Acquired hypothyroidism E03.9 Active 246489376 Problem Goiter E04.9 Active 7104275 Problem Hyperlipidemia, unspecified E78.5 Active 26267346 Problem Rheumatoid arthritis M06.9 Active 74698728 Problem Other chronic pain G89.29 Active 483555254 Problem Hypertension I10 Active 48580758 Problem Right-sided low back pain without sciatica M54.5 Active 088372071 Problem Depression F32.9 Active 25931310 Problem Esophageal reflux K21.9 Active 552902813 Problem Arthralgia M25.50 Active 82091408 Problem Presbyopia H52.4 Active 94361965 Problem Depressive disorder F32.9 Active 60991674 Problem Insomnia G47.00 Active 964665361 ALLERGIES Substance Reaction Event Type Date Status Penicillin V Potassium anaphylaxis Drug Allergy Nov, Active ENCOUNTERS Encounter Location Date Diagnosis [facility], [place] [address] [facility] [id number] [place] [address] Jan, [place] [id number] [place] [address] Nov, Hyperlipidemia, unspecified E78.5 [place] [id number] [place] [address] October, Chest pain, unspecified type R07.9 and Acquired hypothyroidism E03.9 [place] [address] [address] October, Chest pain, unspecified type R07.9 ; Family history of coronary artery disease Z82.49 ; Carpal tunnel syndrome of left wrist G56.02 ; Hypertension I10 ; Esophageal reflux K21.9 ; Arthralgia M25.50 ; Acquired hypothyroidism E03.9 ; Cough R05 ; Nausea R11.0 ; Weight gain R63.5 and BMI 45.0-49.9, adult Z68.42 [place] [id number] [place] [address] Jun, Acquired hypothyroidism E03.9 and Cough R05 [place] [address] [address] May, [place] [address] [address] Feb, Tarsal tunnel syndrome of both lower extremities G57.53 and Neuropathy G62.9 [place] [id number] [place] [address] Dec, Pleuritis R09.1 [place] [address] [address] Nov, [place] [address] [address] October, Arthralgia, unspecified joint M25.50 and Allergy, initial encounter T78.40XA [place] [address] [address] October, [place] [id number] [place] [address] October, Acute recurrent maxillary sinusitis J01.01 and Arthralgia M25.50 [place] [id number] [place] [address] Sep, Pharyngitis due to other organism J02.8 [place] [address] [address] Aug, Acute nasopharyngitis J00 [place] [address] [address] Aug, Multinodular goiter E04.2 [place] [id number] [place] [address] Aug, Thyroid nodule E04.1 [place] [address] [address] 17 Jul, 2016 Tarsal tunnel syndrome of both lower extremities G57.53 [place] [address] [address] Jun, Pneumonia due to infectious organism, unspecified laterality, unspecified part of lung J18.9 [place] [id number] [place] [address] Jun, Bronchospasm with bronchitis, acute J20.9 [place] [id number] [place] [address] May, Acute non-recurrent frontal sinusitis J01.10 [place] [address] [address] May, Flat foot [pes planus] (acquired), left foot M21.42 ; Flat foot [pes planus] (acquired), right foot M21.41 and Neuropathy G62.9 [place] [address] [address] Apr, Chronic tension-type headache, intractable G44.221 ; Right lower quadrant abdominal pain R10.31 ; Cervicalgia M54.2 ; Acute gastritis without hemorrhage, unspecified gastritis type K29.00 and Hypertension I10 [place] [id number] [place] [address] Mar, Depression F32.9 and Anxiety disorder, unspecified F41.9 [place] [address] [address] Feb, Depressive disorder F32.9 and Anxiety disorder, unspecified F41.9 [place] [address] [address] Jan, Dysuria R30.0 ; Lower abdominal pain R10.30 ; Acute bilateral low back pain without sciatica M54.5 ; Nausea and vomiting, unspecified intactability, vomiting of unspecified type R11.2 ; Pain in right foot M79.671 and Pain of left foot M79.672 [place] [address] [address] Dec, Urinary tract infection, site not specified N39.0 [place] [address] [address] Dec, [place] [address] [address] Nov, [place] [address] [address] Nov, Dysuria R30.0 [place] [address] [address] Nov, Dysuria R30.0 and Acute cystitis with hematuria N30.01 [place] [address] [address] October, Nausea R11.0 [place] [address] [address] October, Thyroid nodule E04.1 ; Carpal tunnel syndrome, left upper limb G56.02 ; Carpal tunnel syndrome, right upper limb G56.01 and Constipation, unspecified constipation type K59.00 [place] [id number] [place] [address] October, [place] [address] [address] October, Thyroid nodule E04.1 [place] [address] [address] October, Cold thyroid nodule E04.1 [place] [address] [address] October, [place] [address] [address] Sep, Thyroid nodule E04.1 [place] [address] [address] Sep, Thyroid nodule E04.1 [place] [address] [address] Sep, Thyroid nodule E04.1 ; Hypertension I10 ; Esophageal reflux K21.9 and Hyperlipidemia, unspecified E78.5 [place] [address] [address] Aug, Other chronic pain G89.29 ; Sinusitis J32.9 and Hypertension I10 [place] [id number] [place] [address] Jul, [place] [address] [address] Jul, [place] [id number] [place] [address] 10 Jul, 2015 Insomnia G47.00 and Arthralgia M25.50 [place] [address] [address] Jul, Depressive disorder F32.9 and Anxiety disorder, unspecified F41.9 [place] [id number] [place] [address] May, Right-sided low back pain without sciatica M54.5 and Depression F32.9 [place] [id number] [place] [address] Apr, Hematuria R31.9 [place] [address] [address] Mar, Other chronic pain G89.29 [place] [address] [address] Mar, Other chronic pain G89.29 [place] [id number] [place] [address] Feb, [place] [id number] [place] [address] Feb, Other chronic pain 338.29 ; Dysuria 788.1 ; UTI (urinary tract infection) 599.0 ; Insomnia 780.52 ; Hot flashes 627.2 and Hypertension 401.9 [place] [id number] [place] [address] 14 Feb, 2015 Dysuria 788.1 [place] [id number] [place] [address] Feb, [place] [id number] [place] [address] Jan, [place] [id number] [place] [address] Jan, [place] [id number] [place] [address] Jan, Fibromyalgia 729.1 ; Hypertension 401.9 ; Dysthymia 300.4 and Hot flashes 627.2 [place] [address] [id number] [place] [address] Dec, [facility] [address] [id number] [place] [address] Dec, [facility] [place] [facility] [address] [id number] [place] [address] Dec, [facility] [address] [id number] [place] [address] Nov, Other chronic pain 338.29 [facility] [address] [id number] [place] [address] October, [facility] [address] [id number] [place] [address] October, [facility] [address] [facility] [id number] [place] [address] Sep, [facility] [address] [id number] [place] [address] Sep, [facility] [address] [id number] [place] [address] Aug, [facility] [address] [facility] [id number] [place] [address] Aug, [facility] [address] [facility] [id number] [place] [address] Aug, [facility] [place] [facility] [address] [id number] [place] [address] Aug, [facility] [place] [facility] [address] [id number] [place] [address] Aug, [facility] [place] [facility] [address] [id number] [place] [address] Aug, [facility] [place] [facility] [address] [id number] [place] [address] 19 Aug, 2014 [facility] [place] [facility] [address] [id number] [address] Aug, [facility] [place] [facility] [address] [id number] [place] [address] Aug, [facility] [place] [facility] [address] [id number] [place] [address] Aug, [facility] [place] [facility] [address] [facility] [id number] [place] [address] Aug, [facility] [place] [facility] [address] [id number] [place] [address] Aug, [facility] [place] [facility] [address] [id number] [place] [address] Aug, [facility] [place] [facility] [address] [facility] [id number] [place] [address] Aug, [facility] [place] [facility] [address] [facility] [id number] [place] [address] Jul, [facility] [place] [facility] [address] [facility] [id number] [place] [address] Jul, [facility] [place] [facility] [address] [facility] [id number] [place] [address] Jul, [facility] [place] [facility] [address] [facility] [id number] [place] [address] Jul, [facility] [place] [facility] [address] [facility] [id number] [place] [address] Jul, [facility] [place] [facility] [address] [facility] [id number], [place] [address] Jul, [facility] [place] [facility] [address] [facility] [id number], [place] [address] Jun, [facility] [place] [facility] [address] [facility] [id number], [place] [address] Jun, [facility] [place] [facility] [address] [facility] [id number], [place] [address] Jun, [facility] [place] [facility] [address] [id number] [place] [address] Jun, [facility] [place] [facility] [address] [id number] [place] [address] May, [facility] [place] [facility] [address] [id number] [place] [address] May, [facility] [place] [facility] [address] [id number] [place] [address] May, [facility] [place] [facility] [address] [id number] [place] [address] May, [facility] [place] [facility] [address] [id number] [place] [address] May, [facility] [place] [facility] [address] [id number] [place] [address] May, [facility] [place] [facility] [address] [id number] [place] [address] May, [facility] [place] [facility] [address] [id number] [place] [address] May, [facility] [place] [facility] [address] [id number] [place] [address] May, [facility] [place] [facility] [address] [id number] [place] [address] May, [facility] [place] [facility] [address] [id number] [place] [address] Apr, [facility] [place] [facility] [address] [id number] [place] [address] Apr, [facility] [place] [facility] [address] [id number] [place] [address] Apr, [facility] [place] [facility] [address] [id number] [place] [address] Apr, [facility] [place] [facility] [address] [id number], [place] [address] Apr, [facility] [place] [facility] [address] [id number] [place] [address] Apr, [facility] [place] [facility] [address] [id number] [place] [address] Apr, [facility] [place] [facility] [address] [facility] [id number] [place] [address] Apr, [facility] [place] [facility] [address] [id number] [place] [address] Apr, [facility] [place] [facility] [address] [id number] [place] [address] Mar, [facility] [place] [facility] [address] [id number] [place] [address] Mar, [facility] [place] [facility] [address] [id number] [place] [address] Mar, [facility] [place] [facility] [address] [id number] [place] [address] Mar, [facility] [place] [facility] [address] [id number] [place] [address] Mar, [facility] [place] [facility] [address] [id number] [place] [address] Mar, [facility] [place] [facility] [address] [id number], [place] [address] Mar, [facility] [place] [facility] [address] [id number], [place] [address] Mar, [facility] [place] [facility] [address] [id number] [place] [address] 30 Feb, 2014 [facility] [place] [facility] [address] [id number] [place] [address] 30 Feb, 2014 [facility] [place] [facility] [address] [id number] [place] [address] 24 Feb, 2014 [facility] [place] [facility] [address] [id number] [place] [address] 24 Feb, 2013 [facility] [place] [facility] [address] [id number] [place] [address] 22 Feb, 2013 [facility] [place] [facility] [address] [id number] [place] [address] 22 Feb, 2013 [facility] [place] [facility] [address] [id number] [place] [address] 10 Feb, 2013 [facility] [place] [facility] [address] [id number] [place] [address] 10 Feb, 2013 [facility] [place] [facility] [address] [id number] [place] [address] Feb, 2013 [facility] [place] [facility] [address] [id number] [place] [address] Feb, 2013 [facility] [place] [facility] [address] [id number] [place] [address] Feb, 2013 [facility] [place] [facility] [address] [id number] [place] [address] Feb, 2013 [facility] [place] [facility] [address] [id number] [place] [address] Feb, 2013 [facility] [place] [facility] [address] [id number] [place] [address] Feb, 2013 [facility] [place] [facility] [address] [id number] [place] [address] Jan, [facility] [place] [facility] [address] [id number] [place] [address] Jan, [facility] [place] [facility] [address] [id number] [place] [address] Dec, [facility] [place] [facility] [address] [id number] [place] [address] Dec, [facility] [place] [facility] [address] [id number] [place] [address] Dec, [facility] [place] [facility] [address] [id number] [place] [address] Dec, 2013 [facility] [place] [facility] [address] [id number] [place] [address] Dec, 2013 [facility] [place] [facility] [address] [id number] [place] [address] Dec, 2013 [facility] [place] [facility] [address] [id number] [place] [address] Dec, 2013 [facility] [place] [facility] [address] [id number] [place] [address] Dec, 2013 [facility] [place] [facility] [address] [id number] [place] [address] Dec, 2013 [facility] [place] [facility] [address] [id number] [place] [address] Dec, 2013 [facility] [place] [facility] [address] [id number] [place] [address] Dec, 2013 [facility] [place] [facility] [address] [id number] [place] [address] Dec, [facility] [place] [facility] [address] [id number] [place] [address] Dec, [facility] [place] [facility] [address] [id number] [place] [address] Dec, [facility] [place] [facility] [address] [id number] [place] [address] Dec, 2013 [facility] [place] [facility] [address] [id number] [place] [address] Dec, [facility] [place] [facility] [address] [id number] [place] [address] Dec, [facility] [place] [facility] [address] [id number] [place] [address] Dec, [facility] [place] [facility] [address] [id number] [place] [address] Dec, [facility] [place] [facility] [address] [id number] [place] [address] Nov, [facility] [place] [facility] [address] [id number] [place] [address] Nov, [facility] [place] [facility] [address] [id number] [place] [address] Nov, [facility] [place] [facility] [address] [id number] [place] [address] Nov, [facility] [place] [facility] [address] [id number] [place] [address] Nov, [facility] [place] [facility] [address] [id number] [place] [address] Nov, [facility] [place] [facility] [address] [id number] [place] [address] Nov, [facility] [place] [facility] [address] [id number] [place] [address] Nov, [facility] [place] [facility] [address] [id number] [place] [address] Nov, [facility] [place] [facility] [address] [id number] [place] [address] October, [facility] [place] [facility] [address] [id number] [place] [address] October, [facility] [place] [facility] [address] [id number] [place] [address] October, [facility] [place] [facility] [address] [id number] [place] [address] October, [facility] [place] [facility] [address] [id number] [place] [address] October, [facility] [place] [facility] [address] [id number] [place] [address] October, [facility] [place] [facility] [address] [id number] [place] [address] October, [facility] [address] [id number] [place] [address] October, [facility] [place] [facility] [address] [id number] [place] [address] Sep, [facility] [address] [id number] [place] [address] Sep, [facility] [address] [id number] [place] [address] Sep, [facility] [address] [id number] [place] [address] Sep, [facility] [address] [id number] [place] [address] Sep, [facility] [address] [id number] [place] [address] Sep, [facility] [address] [id number] [place] [address] Sep, [facility] [address] [id number] [place] [address] Aug, [facility] [address] [id number] [place] [address] Aug, [facility] [place] [facility] [address] [id number] [place] [address] Aug, [facility] [place] [facility] [address] [id number] [place] [address] Aug, [facility] [place] [facility] [address] [id number] [place] [address] Aug, [facility] [place] [facility] [address] [id number] [place] [address] Aug, [facility] [place] [facility] [address] [id number] [place] [address] Jul, [facility] [place] [facility] [address] [id number] [place] [address] Jul, [facility] [place] [facility] [address] [id number] [place] [address] Jul, [facility] [place] [facility] [address] [id number] [place] [address] Jul, [facility] [place] [facility] [address] [id number] [place] [address] Jul, [facility] [place] [facility] [address] [id number] [place] [address] Jul, [facility] [place] [facility] [address] [id number] [place] [address] Jun, [facility] [place] [facility] [address] [id number] [place] [address] Jun, [facility] [place] [facility] [address] [id number] [place] [address] Jun, [facility] [place] [facility] [address] [id number] [place] [address] Jun, [facility] [place] [facility] [address] [id number] [place] [address] Jun, [facility] [place] [facility] [address] [id number] [place] [address] Jun, [facility] [place] [facility] [address] [id number] [place] [address] Jun, [facility] [place] [facility] [address] [id number] [place] [address] Jun, [facility] [place] [facility] [address] [id number] [place] [address] Jun, [facility] [place] [facility] [address] [id number] [place] [address] Jun, [facility] [place] [facility] [address] [id number] [place] [address] 14 Jun, 2013 [facility] [address] [id number] [place] [address] 14 Jun, 2013 [facility] [address] [id number] [place] [address] 14 Jun, 2013 [facility] [address] [id number] [place] [address] 30 May, 2013 [facility] [address] [id number] [place] [address] 30 May, 2013 [facility] [address] [id number] [place] [address] 30 May, 2013 [facility] [address] [id number] [place] [address] 30 May, 2013 [facility] [address] [id number] [place] [address] May, [facility] [address] [id number] [place] [address] 14 May, 2013 [facility] [address] [id number] [place] [address] 14 May, 2013 [facility] [address] [id number] [place] [address] 12 May, 2013 [facility] [address] [id number] [place] [address] 12 May, 2013 [facility] [address] [id number] [place] [address] 11 May, 2013 [facility] [address] [id number] [place] [address] 11 May, 2013 [facility] [address] [id number] [place] [address] 10 May, 2013 [facility] [facility] [address] [id number] [place] [address] May, [facility] [address] [id number] [place] [address] May, [facility] [place] [facility] [address] [id number] [place] [address] May, [facility] [place] [facility] [address] [id number] [place] [address] 08 May, 2013 [facility] [place] [facility] [address] [id number] [place] [address] May, [facility] [address] [id number] [place] [address] May, [facility] [place] [facility] [address] [id number] [place] [address] May, [facility] [place] [facility] [address] [facility] [id number] [place] [address] May, [facility] [place] [facility] [address] [id number], [place] [address] May, [facility] [place] [facility] [address] [id number] [place] [address] Apr, [facility] [place] [facility] [address] [id number], [place] [address] Apr, [facility] [place] [facility] [address] [facility] [id number], [place] [address] Apr, [facility] [place] [facility] [address] [id number], [place] [address] Apr, [facility] [place] [facility] [address] [id number], [place] [address] 08 Mar, 2013 [facility] [place] [facility] [address] [id number], [place] [address] 23 Feb, 2013 [facility] [place] [facility] [address] [id number], [place] [address] 16 Feb, 2013 [facility] [place] [facility] [address] [id number], [place] [address] Feb, [facility] [address] [id number] [place] [address] Feb, [facility] [place] [facility] [address] [id number] [place] [address] Feb, [facility] [place] [facility] [address] [id number] [place] [address] Feb, [facility] [place] [facility] [address] [id number] [place] [address] Jan, [facility] [place] [facility] [address] [id number] [place] [address] Jan, [facility] [place] [facility] [address] [id number] [place] [address] Jan, [facility] [place] [facility] [address] [id number] [place] [address] Dec, [facility] [place] [facility] [address] [id number] [place] [address] Dec, [facility] [place] [facility] [address] [id number] [place] [address] Dec, [facility] [place] [facility] [address] [id number] [place] [address] Dec, [facility] [place] [facility] [address] [id number] [place] [address] Dec, [facility] [place] [facility] [address] [id number] [place] [address] Nov, [facility] [place] [facility] [address] [id number] [place] [address] Nov, [facility] [place] [facility] [address] [id number] [place] [address] Nov, [facility] [place] [facility] [address] [id number] [place] [address] Nov, [facility] [place] [facility] [address] [id number] [place] [address] 12 Nov, 2012 [facility] [address] [id number] [place] [address] 08 Nov, 2012 [facility] [place] [facility] [address] [id number] [place] [address] Nov, [facility] [place] [facility] [address] [id number] [place] [address] Nov, [facility] [place] [facility] [address] [id number] [place] [address] Nov, [facility] [place] [facility] [address] [id number] [place] [address] Nov, [facility] [place] [facility] [address] [id number] [place] [address] October, [facility] [place] [facility] [address] [id number] [place] [address] October, [facility] [place] [facility] [address] [id number] [place] [address] Sep, [facility] [place] [facility] [address] [id number] [place] [address] Sep, [facility] [place] [facility] [address] [id number] [place] [address] Sep, [facility] [place] [facility] [address] [id number] [place] [address] Sep, [facility] [place] [facility] [address] [id number] [place] [address] Sep, [facility] [place] [facility] [address] [id number] [place] [address] Aug, [facility] [place] [facility] [address] [id number] [place] [address] Aug, [facility] [place] [facility] [address] [id number] [place] [address] Jul, [facility] [place] [facility] [address] [id number] [place] [address] Jul, [facility] [place] [facility] [address] [id number] [place] [address] Jun, [facility] [place] [facility] [address] [id number] [place] [address] Jun, [facility] [place] [facility] [address] [id number] [place] [address] May, [facility] [place] [facility] [address] [id number] [place] [address] May, [facility] [place] [facility] [address] [id number] [place] [address] May, [facility] [place] [facility] [address] [id number] [place] [address] May, [facility] [place] [facility] [address] [id number] [place] [address] Apr, [facility] [place] [facility] [address] [id number] [place] [address] Apr, [facility] [place] [facility] [address] [id number] [place] [address] Apr, [facility] [place] [facility] [address] [id number], [place] [address] Apr, [facility] [place] [facility] [address] [id number], [place] [address] Apr, [facility] [place] [facility] [address] [id number] [place] [address] Apr, [facility] [place] [facility] [address] [id number] [place] [address] Apr, [facility] [place] [facility] [address] [id number] [place] [address] Apr, [facility] [place] [facility] [address] [id number] [place] [address] Apr, [facility] [place] [facility] [address] [id number] [place] [address] Mar, [facility] [place] [facility] [address] [id number] [place] [address] Mar, [facility] [place] [facility] [address] [id number] [place] [address] Feb, [facility] [place] [facility] [address] [id number] [place] [address] Jan, [facility] [place] [facility] [address] [id number] [place] [address] Jan, [facility] [place] [facility] [address] [id number] [place] [address] Dec, [facility] [place] [facility] [address] [id number] [place] [address] Nov, [facility] [place] [facility] [address] [id number] [place] [address] Nov, [facility] [place] [facility] [address] [id number] [place] [address] October, [facility] [place] [facility] [address] [id number] [place] [address] October, [facility] [place] [facility] [address] [id number] [place] [address] Sep, [facility] [place] [facility] [address] [id number] [place] [address] Sep, [facility] [place] [facility] [address] [id number] [place] [address] May, [facility] [place] [facility] [address] [id number] [place] [address] Apr, [facility] [place] [facility] [address] [id number] [place] [address] Apr, [facility] [place] [address] [facility] [id number], [place] [address] Apr, [facility] [place] [address] [facility] [id number], [place] [address] Apr, [facility] [place] [address] [facility] [id number], [place] [address] Apr, [facility] [place] [address] [facility] [id number], [place] [address] Apr, [facility] [place] [address] [facility] [id number], [place] [address] Apr, [facility] [place] [address] [facility] [id number], [place] [address] Apr, [facility] [place] [address] [facility] [id number], [place] [address] Mar, [facility] [place] [address] [facility] [id number] [place] [address] Mar, [facility] [place] [address] [facility] [id number], [place] [address] Mar, [facility] [place] [id number], [place] [address] Mar, [facility] [place] [id number], [place] [address] Mar, [facility] [place] [id number], [place] [address] Mar, IMMUNIZATIONS No Known Immunizations SOCIAL HISTORY Never Assessed REASON FOR VISIT medication PLAN OF CARE VITAL SIGNS MEDICATIONS Medication Instructions Dosage Frequency Start Date End Date Duration Status Lipitor 40 MG Orally Once a day 1 tablet 24h Nov, 30 day(s) Active RESULTS No Results PROCEDURES No Known [...]
--- OUTSIDE RECORDS SUMMARY | 2018-10-27 16:14 | XMS REPORT ---
Author Author SURESH ANDRADE [facility] Address [address] [place] [address] Care Team Providers Care Doll Surgeon Name Role Phone SURESH ANDRADE Unavailable PROBLEMS Type Condition ICD9-CM Code HYZ48-ND Code Onset Dates Condition Status SNOMED Code Problem Anxiety disorder, unspecified F41.9 Active 513689672 Problem Neuropathy G62.9 Active 821561283 Problem Thyroid nodule E04.1 Active 202200949 Problem Cough R05 Active 35077787 Problem Unspecified epilepsy without mention of intractable epilepsy G40.909 Active 21508291 Problem Carpal tunnel syndrome of left wrist G56.02 Active 482690552303183 Problem Nondependent 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 Active 505079182 Problem Unspecified open-angle glaucoma, stage unspecified H40.10X0 Feb, Active 01225686 Problem Multinodular goiter E04.2 Active 636301041 Problem Chronic tension-type headache, intractable G44.221 Active 159119876 Problem Acquired hypothyroidism E03.9 Active 157155873 Problem Goiter E04.9 Active 2101524 Problem Hyperlipidemia, unspecified E78.5 Active 95449312 Problem Rheumatoid arthritis M06.9 Active 91081452 Problem Other chronic pain G89.29 Active 141207905 Problem Hypertension I10 Active 00486208 Problem Right-sided low back pain without sciatica M54.5 Active 104898153 Problem Depression F32.9 Active 95819884 Problem Esophageal reflux K21.9 Active 999883532 Problem Arthralgia M25.50 Active 35598409 Problem Presbyopia H52.4 Active 08607940 Problem Depressive disorder F32.9 Active 90890715 Problem Insomnia G47.00 Active 701303803 ALLERGIES Substance Reaction Event Type Date Status Penicillin V Potassium anaphylaxis Drug Allergy October, Active ENCOUNTERS Encounter Location Date Diagnosis [facility] [id number] [place] [address] Jan, [place] [id number] [place] [address] Nov, Hyperlipidemia, unspecified E78.5 [place] [id number] [place] [address] October, Chest pain, unspecified type R07.9 and Acquired hypothyroidism E03.9 [place] [address] [address] October, Chest pain, unspecified type R07.9 ; Family history of coronary artery disease Z82.49 ; Carpal tunnel syndrome of left wrist G56.02 ; Hypertension I10 ; Esophageal reflux K21.9 ; Arthralgia M25.50 ; Acquired hypothyroidism E03.9 ; Cough R05 ; Nausea R11.0 ; Weight gain R63.5 and BMI 45.0-49.9, adult Z68.42 [place] [id number] [place] [address] Jun, Acquired hypothyroidism E03.9 and Cough R05 [place] [address] [address] May, [place] [address] [address] Feb, Tarsal tunnel syndrome of both lower extremities G57.53 and Neuropathy G62.9 [place] [id number] [place] [address] Dec, Pleuritis R09.1 [place] [address] [address] Nov, [place] [address] [address] October, Arthralgia, unspecified joint M25.50 and Allergy, initial encounter T78.40XA [place] [address] [address] October, [place] [id number] [place] [address] October, Acute recurrent maxillary sinusitis J01.01 and Arthralgia M25.50 [place] [id number] [place] [address] Sep, Pharyngitis due to other organism J02.8 [place] [address] [address] Aug, Acute nasopharyngitis J00 [place] [address] [address] Aug, Multinodular goiter E04.2 [place] [id number] [place] [address] Aug, Thyroid nodule E04.1 [place] [address] [address] 17 Jul, 2016 Tarsal tunnel syndrome of both lower extremities G57.53 [place] [address] [address] Jun, Pneumonia due to infectious organism, unspecified laterality, unspecified part of lung J18.9 [place] [id number] [place] [address] Jun, Bronchospasm with bronchitis, acute J20.9 [place] [id number] [place] [address] May, Acute non-recurrent frontal sinusitis J01.10 [place] [address] [address] May, Flat foot [pes planus] (acquired), left foot M21.42 ; Flat foot [pes planus] (acquired), right foot M21.41 and Neuropathy G62.9 [place] [address] [address] Apr, Chronic tension-type headache, intractable G44.221 ; Right lower quadrant abdominal pain R10.31 ; Cervicalgia M54.2 ; Acute gastritis without hemorrhage, unspecified gastritis type K29.00 and Hypertension I10 [place] [id number] [place] [address] Mar, Depression F32.9 and Anxiety disorder, unspecified F41.9 [place] [address] [address] Feb, Depressive disorder F32.9 and Anxiety disorder, unspecified F41.9 [place] [address] [address] Jan, Dysuria R30.0 ; Lower abdominal pain R10.30 ; Acute bilateral low back pain without sciatica M54.5 ; Nausea and vomiting, unspecified intactability, vomiting of unspecified type R11.2 ; Pain in right foot M79.671 and Pain of left foot M79.672 [place] [address] [address] Dec, Urinary tract infection, site not specified N39.0 [place] [address] [address] Dec, [place] [address] [address] Nov, [place] [address] [address] Nov, Dysuria R30.0 [place] [address] [address] Nov, Dysuria R30.0 and Acute cystitis with hematuria N30.01 [place] [address] [address] October, Nausea R11.0 [place] [address] [address] October, Thyroid nodule E04.1 ; Carpal tunnel syndrome, left upper limb G56.02 ; Carpal tunnel syndrome, right upper limb G56.01 and Constipation, unspecified constipation type K59.00 [place] [id number] [place] [address] October, [place] [address] [address] October, Thyroid nodule E04.1 [place] [address] [address] October, Cold thyroid nodule E04.1 [place] [address] [address] October, [place] [address] [address] Sep, Thyroid nodule E04.1 [place] [address] [address] Sep, Thyroid nodule E04.1 [place] [address] [address] Sep, Thyroid nodule E04.1 ; Hypertension I10 ; Esophageal reflux K21.9 and Hyperlipidemia, unspecified E78.5 [place] [address] [address] Aug, Other chronic pain G89.29 ; Sinusitis J32.9 and Hypertension I10 [place] [id number] [place] [address] Jul, [place] [address] [address] Jul, [place] [id number] [place] [address] 10 Jul, 2015 Insomnia G47.00 and Arthralgia M25.50 [place] [address] [address] Jul, Depressive disorder F32.9 and Anxiety disorder, unspecified F41.9 [place] [id number] [place] [address] May, Right-sided low back pain without sciatica M54.5 and Depression F32.9 [place] [id number] [place] [address] Apr, Hematuria R31.9 [place] [address] [address] Mar, Other chronic pain G89.29 [place] [address] [address] Mar, Other chronic pain G89.29 [place] [id number] [place] [address] Feb, [place] [id number] [place] [address] Feb, Other chronic pain 338.29 ; Dysuria 788.1 ; UTI (urinary tract infection) 599.0 ; Insomnia 780.52 ; Hot flashes 627.2 and Hypertension 401.9 [place] [address] [place] [address] 14 Feb, 2015 Dysuria 788.1 [place] [id number] [place] [address] Feb, [place] [id number] [place] [address] Jan, [place] [id number] [place] [address] Jan, [place] [id number] [place] [address] Jan, Fibromyalgia 729.1 ; Hypertension 401.9 ; Dysthymia 300.4 and Hot flashes 627.2 [place] [address] [id number] [place] [address] Dec, [facility] [address] [id number] [place] [address] Dec, [facility] [place] [facility] [address] [id number] [place] [address] Dec, [facility] [address] [id number] [place] [address] Nov, Other chronic pain 338.29 [facility] [address] [id number] [place] [address] October, [facility] [address] [id number] [place] [address] October, [facility] [address] [facility] [id number] [place] [address] Sep, [facility] [address] [id number] [place] [address] Sep, [facility] [address] [id number] [place] [address] Aug, [facility] [address] [facility] [id number] [place] [address] Aug, [facility] [address] [facility] [id number] [place] [address] Aug, [facility] [place] [facility] [address] [id number] [place] [address] Aug, [facility] [place] [facility] [address] [id number] [place] [address] Aug, [facility] [place] [facility] [address] [id number] [place] [address] Aug, [facility] [place] [facility] [address] [id number] [place] [address] 19 Aug, 2014 [facility] [place] [facility] [address] [id number], [place] [address] Aug, [facility] [place] [facility] [address] [id number] [place] [address] Aug, [facility] [place] [facility] [address] [id number] [place] [address] Aug, [facility] [place] [facility] [address] [facility] [id number] [place] [address] Aug, [facility] [place] [facility] [address] [id number] [place] [address] Aug, [facility] [place] [facility] [address] [id number] [place] [address] Aug, [facility] [place] [facility] [address] [facility] [id number] [place] [address] Aug, [facility] [place] [facility] [address] [facility] [id number] [place] [address] Jul, [facility] [place] [facility] [address] [facility] [id number] [place] [address] Jul, [facility] [place] [facility] [address] [facility] [id number] [place] [address] Jul, [facility] [place] [facility] [address] [facility] [id number] [place] [address] Jul, [facility] [place] [facility] [address] [facility] [id number] [place] [address] Jul, [facility] [place] [facility] [address] [facility] [id number], [place] [address] Jul, [facility] [place] [facility] [address] [facility] [id number], [place] [address] Jun, [facility] [place] [facility] [address] [facility] [id number], [place] [address] Jun, [facility] [place] [facility] [address] [facility] [id number], [place] [address] Jun, [facility] [place] [facility] [address] [id number] [place] [address] Jun, [facility] [place] [facility] [address] [id number] [place] [address] May, [facility] [place] [facility] [address] [id number] [place] [address] May, [facility] [place] [facility] [address] [id number] [place] [address] May, [facility] [place] [facility] [address] [id number] [place] [address] May, [facility] [place] [facility] [address] [id number] [place] [address] May, [facility] [place] [facility] [address] [id number] [place] [address] May, [facility] [place] [facility] [address] [id number] [place] [address] May, [facility] [place] [facility] [address] [id number] [place] [address] May, [facility] [place] [facility] [address] [id number] [place] [address] May, [facility] [place] [facility] [address] [id number] [place] [address] May, [facility] [place] [facility] [address] [id number] [place] [address] Apr, [facility] [place] [facility] [address] [id number] [place] [address] Apr, [facility] [place] [facility] [address] [id number] [place] [address] Apr, [facility] [place] [facility] [address] [id number] [place] [address] Apr, [facility] [place] [facility] [address] [id number], [place] [address] Apr, [facility] [place] [facility] [address] [id number] [place] [address] Apr, [facility] [place] [facility] [address] [id number] [place] [address] Apr, [facility] [place] [facility] [address] [facility] [id number] [place] [address] Apr, [facility] [place] [facility] [address] [id number] [place] [address] Apr, [facility] [place] [facility] [address] [id number] [place] [address] Mar, [facility] [place] [facility] [address] [id number] [place] [address] Mar, [facility] [place] [facility] [address] [id number] [place] [address] Mar, [facility] [place] [facility] [address] [id number] [place] [address] Mar, [facility] [place] [facility] [address] [id number] [place] [address] Mar, [facility] [place] [facility] [address] [id number] [place] [address] Mar, [facility] [place] [facility] [address] [id number], [place] [address] Mar, [facility] [place] [facility] [address] [id number], [place] [address] Mar, [facility] [place] [facility] [address] [id number] [place] [address] 30 Feb, 2014 [facility] [place] [facility] [address] [id number] [place] [address] 30 Feb, 2014 [facility] [place] [facility] [address] [id number] [place] [address] 24 Feb, 2014 [facility] [place] [facility] [address] [id number] [place] [address] 24 Feb, 2013 [facility] [place] [facility] [address] [id number] [place] [address] 22 Feb, 2013 [facility] [place] [facility] [address] [id number] [place] [address] 22 Feb, 2013 [facility] [place] [facility] [address] [id number] [place] [address] 10 Feb, 2013 [facility] [place] [facility] [address] [id number] [place] [address] 10 Feb, 2013 [facility] [place] [facility] [address] [id number] [place] [address] Feb, 2013 [facility] [place] [facility] [address] [id number] [place] [address] Feb, 2013 [facility] [place] [facility] [address] [id number] [place] [address] Feb, 2013 [facility] [place] [facility] [address] [id number] [place] [address] Feb, 2013 [facility] [place] [facility] [address] [id number] [place] [address] Feb, 2013 [facility] [place] [facility] [address] [id number] [place] [address] Feb, 2013 [facility] [place] [facility] [address] [id number] [place] [address] Jan, [facility] [place] [facility] [address] [id number] [place] [address] Jan, [facility] [place] [facility] [address] [id number] [place] [address] Dec, [facility] [place] [facility] [address] [id number] [place] [address] Dec, [facility] [place] [facility] [address] [id number] [place] [address] Dec, [facility] [place] [facility] [address] [id number] [place] [address] Dec, 2013 [facility] [place] [facility] [address] [id number] [place] [id number] Dec, 2013 [facility] [place] [facility] [address] [id number] [place] [address] Dec, 2013 [facility] [place] [facility] [address] [id number] [place] [address] Dec, 2013 [facility] [place] [facility] [address] [id number] [place] [address] Dec, 2013 [facility] [place] [facility] [address] [id number] [place] [address] Dec, 2013 [facility] [place] [facility] [address] [id number] [place] [address] Dec, 2013 [facility] [place] [facility] [address] [id number] [place] [address] Dec, 2013 [facility] [place] [facility] [address] [id number] [place] [address] Dec, [facility] [place] [facility] [address] [id number] [place] [address] Dec, [facility] [place] [facility] [address] [id number] [place] [address] Dec, [facility] [place] [facility] [address] [id number] [place] [address] Dec, 2013 [facility] [place] [facility] [address] [id number] [place] [address] Dec, [facility] [place] [facility] [address] [id number] [place] [address] Dec, [facility] [place] [facility] [address] [id number] [place] [address] Dec, [facility] [place] [facility] [address] [id number] [place] [address] Dec, [facility] [place] [facility] [address] [id number] [place] [address] Nov, [facility] [place] [facility] [address] [id number] [place] [address] Nov, [facility] [place] [facility] [address] [id number] [place] [address] Nov, [facility] [place] [facility] [address] [id number] [place] [address] Nov, [facility] [place] [facility] [address] [id number] [place] [address] Nov, [facility] [place] [facility] [address] [id number] [place] [address] Nov, [facility] [place] [facility] [address] [id number] [place] [address] Nov, [facility] [place] [facility] [address] [id number] [place] [address] Nov, [facility] [place] [facility] [address] [id number] [place] [address] Nov, [facility] [place] [facility] [address] [id number] [place] [address] October, [facility] [place] [facility] [address] [id number] [place] [address] October, [facility] [place] [facility] [address] [id number] [place] [address] October, [facility] [place] [facility] [address] [id number] [place] [address] October, [facility] [place] [facility] [address] [id number] [place] [address] October, [facility] [place] [facility] [address] [id number] [place] [address] October, [facility] [place] [facility] [address] [id number] [place] [address] October, [facility] [address] [id number] [place] [address] October, [facility] [place] [facility] [address] [id number] [place] [address] Sep, [facility] [address] [id number] [place] [address] Sep, [facility] [address] [id number] [place] [address] Sep, [facility] [address] [id number] [place] [address] Sep, [facility] [address] [id number] [place] [address] Sep, [facility] [address] [id number] [place] [address] Sep, [facility] [address] [id number] [place] [address] Sep, [facility] [address] [id number] [place] [address] Aug, [facility] [address] [id number] [place] [address] Aug, [facility] [place] [facility] [address] [id number] [place] [address] Aug, [facility] [place] [facility] [address] [id number] [place] [address] Aug, [facility] [place] [facility] [address] [id number] [place] [address] Aug, [facility] [place] [facility] [address] [id number] [place] [address] Aug, [facility] [place] [facility] [address] [id number] [place] [address] Jul, [facility] [place] [facility] [address] [id number] [place] [address] Jul, [facility] [place] [facility] [address] [id number] [place] [address] Jul, [facility] [place] [facility] [address] [id number] [place] [address] Jul, [facility] [place] [facility] [address] [id number] [place] [address] Jul, [facility] [place] [facility] [address] [id number] [place] [address] Jul, [facility] [place] [facility] [address] [id number] [place] [address] Jun, [facility] [place] [facility] [address] [id number] [place] [address] Jun, [facility] [place] [facility] [address] [id number] [place] [address] Jun, [facility] [place] [facility] [address] [id number] [place] [address] Jun, [facility] [place] [facility] [address] [id number] [place] [address] Jun, [facility] [place] [facility] [address] [id number] [place] [address] Jun, [facility] [place] [facility] [address] [id number] [place] [address] Jun, [facility] [place] [facility] [address] [id number] [place] [address] Jun, [facility] [place] [facility] [address] [id number] [place] [address] Jun, [facility] [place] [facility] [address] [id number] [place] [address] Jun, [facility] [place] [facility] [address] [id number] [place] [address] 14 Jun, 2013 [facility] [address] [id number] [place] [address] 14 Jun, 2013 [facility] [address] [id number] [place] [address] 14 Jun, 2013 [facility] [address] [id number] [place] [address] 30 May, 2013 [facility] [address] [id number] [place] [address] 30 May, 2013 [facility] [address] [id number] [place] [address] 30 May, 2013 [facility] [address] [id number] [place] [address] 30 May, 2013 [facility] [address] [id number] [place] [address] May, [facility] [address] [id number] [place] [address] 14 May, 2013 [facility] [address] [id number] [place] [address] 14 May, 2013 [facility] [address] [id number] [place] [address] 12 May, 2013 [facility] [address] [id number] [place] [address] 12 May, 2013 [facility] [address] [id number] [place] [address] 11 May, 2013 [facility] [address] [id number] [place] [address] 11 May, 2013 [facility] [address] [id number] [place] [address] 10 May, 2013 [facility] [address] [id number] [place] [address] May, [facility] [address] [id number] [place] [address] May, [facility] [place] [facility] [address] [id number] [place] [address] May, [facility] [place] [facility] [address] [id number] [place] [address] 08 May, 2013 [facility] [place] [facility] [address] [id number] [place] [address] May, [facility] [address] [id number] [place] [address] May, [facility] [place] [facility] [address] [id number] [place] [address] May, [facility] [place] [facility] [address] [facility] [id number] [place] [address] May, [facility] [place] [facility] [address] [id number], [place] [address] May, [facility] [place] [facility] [address] [id number] [place] [address] Apr, [facility] [place] [facility] [address] [id number], [place] [address] Apr, [facility] [place] [facility] [address] [facility] [id number], [place] [address] Apr, [facility] [place] [facility] [address] [id number], [place] [address] Apr, [facility] [place] [facility] [address] [id number], [place] [address] 08 Mar, 2013 [facility] [place] [facility] [address] [id number], [place] [address] 23 Feb, 2013 [facility] [place] [facility] [address] [id number], [place] [address] 16 Feb, 2013 [facility] [place] [facility] [address] [id number], [place] [address] Feb, [facility] [address] [id number] [place] [address] Feb, [facility] [place] [facility] [address] [id number] [place] [address] Feb, [facility] [place] [facility] [address] [id number] [place] [address] Feb, [facility] [place] [facility] [address] [id number] [place] [address] Jan, [facility] [place] [facility] [address] [id number] [place] [address] Jan, [facility] [place] [facility] [address] [id number] [place] [address] Jan, [facility] [place] [facility] [address] [id number] [place] [address] Dec, [facility] [place] [facility] [address] [id number] [place] [address] Dec, [facility] [place] [facility] [address] [id number] [place] [address] Dec, [facility] [place] [facility] [address] [id number] [place] [address] Dec, [facility] [place] [facility] [address] [id number] [place] [address] Dec, [facility] [place] [facility] [address] [id number] [place] [address] Nov, [facility] [place] [facility] [address] [id number] [place] [address] Nov, [facility] [place] [facility] [address] [id number] [place] [address] Nov, [facility] [place] [facility] [address] [id number] [place] [address] Nov, [facility] [place] [facility] [address] [id number] [place] [address] 12 Nov, 2012 [facility] [address] [id number] [place] [address] 08 Nov, 2012 [facility] [place] [facility] [address] [id number] [place] [address] Nov, [facility] [place] [facility] [address] [id number] [place] [address] Nov, [facility] [place] [facility] [address] [id number] [place] [address] Nov, [facility] [place] [facility] [address] [id number] [place] [address] Nov, [facility] [place] [facility] [address] [id number] [place] [address] October, [facility] [place] [facility] [address] [id number] [place] [address] October, [facility] [place] [facility] [address] [id number] [place] [address] Sep, [facility] [place] [facility] [address] [id number] [place] [address] Sep, [facility] [place] [facility] [address] [id number] [place] [address] Sep, [facility] [place] [facility] [address] [id number] [place] [address] Sep, [facility] [place] [facility] [address] [id number] [place] [address] Sep, [facility] [place] [facility] [address] [id number] [place] [address] Aug, [facility] [place] [facility] [address] [id number] [place] [address] Aug, [facility] [place] [facility] [address] [id number] [place] [address] Jul, [facility] [place] [facility] [address] [id number] [place] [address] Jul, [facility] [place] [facility] [address] [id number] [place] [address] Jun, [facility] [place] [facility] [address] [id number] [place] [address] Jun, [facility] [place] [facility] [address] [id number] [place] [address] May, [facility] [place] [facility] [address] [id number] [place] [address] May, [facility] [place] [facility] [address] [id number] [place] [address] May, [facility] [place] [facility] [address] [id number] [place] [address] May, [facility] [place] [facility] [address] [id number] [place] [address] Apr, [facility] [place] [facility] [address] [id number] [place] [address] Apr, [facility] [place] [facility] [address] [id number] [place] [address] Apr, [facility] [place] [facility] [address] [id number], [place] [address] Apr, [facility] [place] [facility] [address] [id number], [place] [address] Apr, [facility] [place] [facility] [address] [id number] [place] [address] Apr, [facility] [place] [facility] [address] [id number] [place] [address] Apr, [facility] [place] [facility] [address] [id number] [place] [address] Apr, [facility] [place] [facility] [address] [id number] [place] [address] Apr, [facility] [place] [facility] [address] [id number] [place] [address] Mar, [facility] [place] [facility] [address] [id number] [place] [address] Mar, [facility] [place] [facility] [address] [id number] [place] [address] Feb, [facility] [place] [facility] [address] [id number] [place] [address] Jan, [facility] [place] [facility] [address] [id number] [place] [address] Jan, [facility] [place] [facility] [address] [id number] [place] [address] Dec, [facility] [place] [facility] [address] [id number] [place] [address] Nov, [facility] [place] [facility] [address] [id number] [place] [address] Nov, [facility] [place] [facility] [address] [id number] [place] [address] October, [facility] [place] [facility] [address] [id number] [place] [address] October, [facility] [place] [facility] [address] [id number] [place] [address] Sep, [facility] [place] [facility] [address] [id number] [place] [address] Sep, [facility] [place] [facility] [address] [id number] [place] [address] May, [facility] [place] [facility] [address] [id number] [place] [address] Apr, [facility] [place] [facility] [address] [id number] [place] [address] Apr, [facility] [id number], [place] [address] Apr, [facility] [address] [facility] [id number], [place] [address] Apr, [facility] [address] [facility] [id number], [place] [address] Apr, [facility] [address] [facility] [id number] [place] [address] Apr, [facility] [address] [facility] [id number] [place] [address] Apr, [facility] [id number] [place] [address] Apr, [facility] [id number] [place] [address] Mar, [facility] [id number] [place] [address] Mar, [facility] [id number] [place] [address] Mar, [facility] [id number], [place] [address] Mar, [facility] [address], [place] [address] Mar, [facility] [address], [place] [address] Mar, IMMUNIZATIONS No Known Immunizations SOCIAL HISTORY Never Assessed REASON FOR VISIT Blood Pressure, PT reports in the last 4-5 months she has been experincing numbn ess in her hands, legs and feet. PT also notes lately with stress she has been h aving a lot of chest pains-Markie GREEN , PT needs Refills- Markie GREEN PLAN OF CARE Activity Details Follow Up 2 Months Reason:carpal tunnel VITAL SIGNS Height 62 in 2017-10-26 Weight 251.6 lbs 2017-10-26 Temperature 98.0 degrees Fahrenheit 2017-10-26 Heart Rate 90 bpm 2017-10-26 Respiratory Rate 22 2017-10-26 BMI 46.01 kg/m2 2017-10-26 Blood pressure systolic 130 mmHg 2017-10-26 Blood pressure diastolic 78 mmHg 2017-10-26 MEDICATIONS Medication Instructions Dosage Frequency Start Date End Date Duration Status Zofran ODT 4 MG Orally every 8 hrs as needed for nausea 1 tablet on the tongue and allow to dissolve Jan, 30 days Active Ventolin HFA 108 (90 Base) MCG/ACT Inhalation every 6 hrs 2 puffs as needed 6h Jun, 30 days Active Mobic 15 MG Orally Once a day 1 tablet 24h 30 days Active Lisinopril-Hydrochlorothiazide 20-25 MG Orally Once a day 1 tablet in the morning 24h 30 days Active Levothyroxine Sodium 50 MCG Orally Once a day 1 tablet on an empty stomach in the morning 24h Aug, 30 days Active Omeprazole 20 MG Orally twice a day 1 capsule 12h October, 30 days Active RESULTS No Results PROCEDURES Procedure Date Ordered Result Body Site EKG, TRACING (IN-HOUSE) 2017-10-26 Normal ELECTROCARDIOGRAM, TRACING October 26, 2017 INSTRUCTIONS MEDICATIONS ADMINISTERED No Known Medications MEDICAL (GENERAL) HISTORY Type Description Date Medical History HTN Medical History Depression Medical History Arthritis Surgical History Breast lump removed Surgical History Removal of cyst from ovary Surgical History cholecystectomy Surgical History Stomach surgeryx3 Hospitalization History Mental floor at [facility]
--- OUTSIDE RECORDS SUMMARY | 2018-10-27 16:14 | XMS REPORT ---
Author Author SURESH ANDRADE [facility] Address [address] [place] [address] Care Team Providers Care Mri Manager Name Role Phone SURESH ANDRADE Unavailable PROBLEMS Type Condition ICD9-CM Code QFB05-LO Code Onset Dates Condition Status SNOMED Code Problem Anxiety disorder, unspecified F41.9 Active 644612560 Problem Neuropathy G62.9 Active 335139036 Problem Thyroid nodule E04.1 Active 860584578 Problem Cough R05 Active 40142582 Problem Unspecified epilepsy without mention of intractable epilepsy G40.909 Active 97834669 Problem Carpal tunnel syndrome of left wrist G56.02 Active 477455403784362 Problem Nondependent 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 Active 079578631 Problem Unspecified open-angle glaucoma, stage unspecified H40.10X0 Feb, Active 90164661 Problem Multinodular goiter E04.2 Active 271032077 Problem Chronic tension-type headache, intractable G44.221 Active 902212048 Problem Acquired hypothyroidism E03.9 Active 139033578 Problem Goiter E04.9 Active 7552087 Problem Hyperlipidemia, unspecified E78.5 Active 95250245 Problem Rheumatoid arthritis M06.9 Active 07661448 Problem Other chronic pain G89.29 Active 363430047 Problem Hypertension I10 Active 23493727 Problem Right-sided low back pain without sciatica M54.5 Active 437656118 Problem Depression F32.9 Active 82667244 Problem Esophageal reflux K21.9 Active 847225444 Problem Arthralgia M25.50 Active 97556837 Problem Presbyopia H52.4 Active 76362241 Problem Depressive disorder F32.9 Active 86948220 Problem Insomnia G47.00 Active [id number] ALLERGIES No Information ENCOUNTERS Encounter Location Date Diagnosis [facility] [address] [facility] [id number] [address] Jan, [place] [id number] [place] [address] Nov, Hyperlipidemia, unspecified E78.5 [place] [address] [address] October, Chest pain, unspecified type R07.9 and Acquired hypothyroidism E03.9 [place] [address] [address] October, Chest pain, unspecified type R07.9 ; Family history of coronary artery disease Z82.49 ; Carpal tunnel syndrome of left wrist G56.02 ; Hypertension I10 ; Esophageal reflux K21.9 ; Arthralgia M25.50 ; Acquired hypothyroidism E03.9 ; Cough R05 ; Nausea R11.0 ; Weight gain R63.5 and BMI 45.0-49.9, adult Z68.[address] [address] Jun, Acquired hypothyroidism E03.9 and Cough R05 [place] [address] [address] May, [address] [address] Feb, Tarsal tunnel syndrome of both lower extremities G57.53 and Neuropathy G62.9 [place] [id number] [place] [address] Dec, Pleuritis R09.1 [place] [address] [address] Nov, [place] [address] [address] October, Arthralgia, unspecified joint M25.50 and Allergy, initial encounter T78.40XA [place] [id number] [place] [address] October, [place] [address] [place] [id number] [place] [address] October, Acute recurrent maxillary sinusitis J01.01 and Arthralgia M25.50 [place] [address] [address] Sep, Pharyngitis due to other organism J02.8 [place] [id number] [place] [address] Aug, Acute nasopharyngitis J00 [place] [address] [address] Aug, Multinodular goiter E04.[address] [address] Aug, Thyroid nodule E04.1 [place] [id number] [place] [address] Jul, Tarsal tunnel syndrome of both lower extremities G57.53 [place] [address] [address] Jun, Pneumonia due to infectious organism, unspecified laterality, unspecified part of lung J18.9 [place] [id number] [place] [address] Jun, Bronchospasm with bronchitis, acute J20.9 [place] [id number] [place] [address] May, Acute non-recurrent frontal sinusitis J01.10 [place] [id number] [place] [address] May, Flat foot [pes planus] (acquired), left foot M21.42 ; Flat foot [pes planus] (acquired), right foot M21.41 and Neuropathy G62.9 [place] [id number] [place] [address] Apr, Chronic tension-type headache, intractable G44.221 ; Right lower quadrant abdominal pain R10.31 ; Cervicalgia M54.2 ; Acute gastritis without hemorrhage, unspecified gastritis type K29.00 and Hypertension I10 [place] [address] [address] Mar, Depression F32.9 and Anxiety disorder, unspecified F41.9 [place] [address] [address] Feb, Depressive disorder F32.9 and Anxiety disorder, unspecified F41.9 [place] [address] [address] Jan, Dysuria R30.0 ; Lower abdominal pain R10.30 ; Acute bilateral low back pain without sciatica M54.5 ; Nausea and vomiting, unspecified intactability, vomiting of unspecified type R11.2 ; Pain in right foot M79.671 and Pain of left foot M79.672 [place] [address] [address] Dec, Urinary tract infection, site not specified N39.0 [place] [address] [address] Dec, [place] [address] [address] Nov, [place] [address] [address] Nov, Dysuria R30.0 [place] [address] [address] Nov, Dysuria R30.0 and Acute cystitis with hematuria N30.01 [place] [address] [address] October, Nausea R11.0 [place] [address] [address] October, Thyroid nodule E04.1 ; Carpal tunnel syndrome, left upper limb G56.02 ; Carpal tunnel syndrome, right upper limb G56.01 and Constipation, unspecified constipation type K59.00 [place] [address] [address] October, [place] [address] [address] October, Thyroid nodule E04.1 [place] [address] [address] October, Cold thyroid nodule E04.1 [place] [address] [address] October, [place] [address] [address] Sep, Thyroid nodule E04.1 [place] [address] [address] Sep, Thyroid nodule E04.1 [place] [address] [address] Sep, Thyroid nodule E04.1 ; Hypertension I10 ; Esophageal reflux K21.9 and Hyperlipidemia, unspecified E78.5 [place] [address] [address] Aug, Other chronic pain G89.29 ; Sinusitis J32.9 and Hypertension I10 [place] [address] [id number] [place] [address] Jul, [place] [address] [address] Jul, [place] [address] [address] Jul, Insomnia G47.00 and Arthralgia M25.50 [place] [address] [address] Jul, Depressive disorder F32.9 and Anxiety disorder, unspecified F41.9 [facility] [id number] [place] [address] May, Right-sided low back pain without sciatica M54.[address] [facility] [address] [id number] [place] [address] Apr, Hematuria R31.9 [facility] [address] [address] Mar, Other chronic pain G89.29 [place] [address] [address] Mar, Other chronic pain G89.29 [place] [id number] [place] [address] Feb, [facility] [address] [address] Feb, Other chronic pain 338.29 ; Dysuria 788.1 ; UTI (urinary tract infection) 599.0 ; Insomnia 780.52 ; Hot flashes 627.2 and Hypertension 401.9 [place] [id number] [place] [address] Feb, Dysuria 788.1 [place] [id number] [place] [address] Feb, [facility] [id number] [place] [address] Jan, [facility] [id number] [place] [address] Jan, [place] [id number] [place] [address] Jan, Fibromyalgia 729.1 ; Hypertension 401.9 ; Dysthymia 300.[address] [facility] [address] [id number] [place] [address] Dec, [facility] [address] [id number] [place] [address] Dec, [facility] [address] [id number] [place] [address] Dec, [facility] [address] [facility] [id number] [place] [address] Nov, Other chronic pain 338.29 [facility] [address] [id number] [place] [address] October, [facility] [address] [id number] [place] [address] October, [facility] [address] [id number] [place] [address] Sep, [facility] [address] [facility] [id number] [place] [address] Sep, [facility] [address] [id number] [place] [address] Aug, [facility] [address] [id number] [place] [address] Aug, [facility] [address] [facility] [id number] [place] [address] Aug, [facility] [address] [id number] [place] [address] Aug, [facility] [address] [id number] [place] [address] Aug, [facility] [address] [id number] [place] [address] Aug, [facility] [place] [facility] [address] [id number] [place] [address] Aug, [facility] [address] [id number] [place] [address] Aug, [facility] [place] [facility] [address] [id number] [place] [address] Aug, [facility] [place] [facility] [address] [id number] [place] [address] Aug, [facility] [place] [facility] [address] [id number] [place] [address] Aug, [facility] [place] [facility] [address] [id number] [place] [address] Aug, [facility] [place] [facility] [address] [id number] [place] [address] Aug, [facility] [place] [facility] [address] [id number] [place] [address] Aug, [facility] [place] [facility] [address] [facility] [id number] [place] [address] Jul, [facility] [place] [facility] [address] [id number] [place] [address] Jul, [facility] [place] [facility] [address] [id number] [place] [address] Jul, [facility] [place] [facility] [address] [facility] [id number] [place] [address] Jul, [facility] [place] [facility] [address] [facility] [id number] [place] [address] Jul, [facility] [place] [facility] [address] [id number] [address] Jul, [facility] [place] [facility] [address] [id number] [place] [address] Jun, [facility] [place] [facility] [address] [id number] [place] [address] Jun, [facility] [place] [facility] [address] [facility] [id number] [place] [address] Jun, [facility] [place] [facility] [address] [id number], [place] [address] Jun, [facility] [place] [facility] [address] [id number] [place] [address] May, [facility] [place] [facility] [address] [id number] [place] [address] May, [facility] [place] [facility] [address] [facility] [id number] [place] [address] May, [facility] [place] [facility] [address] [id number] [place] [address] May, [facility] [place] [facility] [address] [facility] [id number] [place] [address] May, [facility] [place] [facility] [address] [id number] [place] [address] May, [facility] [place] [facility] [address] [place] [address] [id number] [place] [address] May, [facility] [place] [facility] [address] [id number] [place] [address] May, [facility] [place] [facility] [address] [facility] [id number] [place] [address] May, [facility] [place] [facility] [address] [facility] [id number] [place] [address] May, [facility] [place] [facility] [address] [id number] [place] [address] Apr, [facility] [place] [facility] [address] [id number], [place] [address] Apr, [facility] [place] [facility] [address] [id number] [place] [address] Apr, [facility] [place] [facility] [address] [facility] [id number] [place] [address] Apr, [facility] [place] [facility] [address] [facility] [id number] [place] [address] Apr, [facility] [place] [facility] [address] [id number] [place] [address] 08 Apr, 2014 [facility] [place] [facility] [address] [id number] [place] [address] 08 Apr, 2014 [facility] [place] [facility] [address] [id number] [place] [address] Apr, [facility] [place] [facility] [address] [id number] [place] [address] Apr, [facility] [place] [facility] [address] [id number] [place] [address] Mar, [facility] [place] [facility] [address] [id number] [place] [address] Mar, [facility] [place] [facility] [address] [id number] [place] [address] Mar, [facility] [place] [facility] [address] [id number] [place] [address] Mar, [facility] [place] [facility] [address] [id number] [place] [address] Mar, [facility] [place] [facility] [address] [id number] [place] [address] Mar, [facility] [place] [facility] [address] [id number] [place] [address] Mar, [facility] [place] [facility] [address] [id number] [place] [address] Mar, [facility] [place] [facility] [address] [id number] [place] [address] 30 Feb, 2014 [facility] [place] [facility] [address] [id number] [place] [address] 30 Feb, 2014 [facility] [place] [facility] [address] [id number] [place] [address] 24 Feb, 2014 [facility] [place] [facility] [address] [id number] [place] [address] 24 Feb, 2013 [facility] [place] [facility] [address] [id number] [place] [address] Feb, 2013 [facility] [place] [facility] [address] [id number] [place] [address] Feb, 2013 [facility] [place] [facility] [address] [id number] [place] [address] Feb, 2013 [facility] [place] [facility] [address] [id number] [place] [address] 10 Feb, 2013 [facility] [place] [facility] [address] [id number] [place] [address] Feb, 2013 [facility] [place] [facility] [address] [id number] [place] [address] Feb, 2013 [facility] [place] [facility] [address] [id number] [place] [address] Feb, 2013 [facility] [place] [facility] [address] [id number] [place] [address] Feb, 2013 [facility] [place] [facility] [address] [id number] [place] [address] Feb, [facility] [place] [facility] [address] [id number] [place] [address] Feb, [facility] [place] [facility] [address] [id number] [place] [address] Jan, [facility] [place] [facility] [address] [id number] [place] [address] Jan, [facility] [place] [facility] [address] [id number] [place] [address] Dec, [facility] [place] [facility] [address] [id number] [place] [address] Dec, [facility] [place] [facility] [address] [id number] [place] [address] Dec, [facility] [place] [facility] [address] [id number] [place] [address] Dec, 2013 [facility] [place] [facility] [address] [id number] [place] [id number] Dec, 2013 [facility] [place] [facility] [address] [id number] [place] [address] Dec, 2013 [facility] [place] [facility] [address] [id number] [place] [address] Dec, 2013 [facility] [place] [facility] [address] [id number] [place] [address] Dec, 2013 [facility] [place] [facility] [address] [id number] [place] [address] Dec, 2013 [facility] [place] [facility] [address] [id number] [place] [address] Dec, 2013 [facility] [place] [facility] [address] [id number] [place] [address] Dec, 2013 [facility] [place] [facility] [address] [id number] [place] [address] Dec, 2013 [facility] [place] [facility] [address] [id number] [place] [address] Dec, 2013 [facility] [place] [facility] [address] [id number] [place] [address] Dec, [facility] [place] [facility] [address] [id number] [place] [address] Dec, 2013 [facility] [place] [facility] [address] [id number] [place] [address] Dec, 2013 [facility] [place] [facility] [address] [id number] [place] [address] Dec, [facility] [place] [facility] [address] [id number] [place] [address] Dec, [facility] [place] [facility] [address] [id number] [place] [address] Dec2013 [facility] [place] [facility] [address] [id number] [place] [address] Nov, [facility] [place] [facility] [address] [id number] [place] [address] Nov, [facility] [place] [facility] [address] [id number] [place] [address] Nov, [facility] [place] [facility] [address] [id number] [place] [address] Nov, [facility] [place] [facility] [address] [id number] [place] [address] Nov, [facility] [place] [facility] [address] [id number] [place] [address] Nov, [facility] [place] [facility] [address] [id number] [place] [address] Nov, [facility] [place] [facility] [address] [id number] [place] [address] Nov, [facility] [place] [facility] [address] [id number] [place] [address] Nov, [facility] [place] [facility] [address] [id number] [place] [address] October, [facility] [place] [facility] [address] [id number] [place] [address] October, [facility] [place] [facility] [address] [id number] [place] [address] October, [facility] [place] [facility] [address] [id number] [place] [address] October, [facility] [place] [facility] [address] [id number] [place] [address] October, [facility] [place] [facility] [address] [id number] [place] [address] October, [facility] [place] [facility] [address] [id number] [place] [address] October, [facility] [place] [facility] [address] [id number] [place] [address] October, [facility] [place] [facility] [address] [id number] [place] [address] Sep, [facility] [place] [facility] [address] [id number] [place] [address] Sep, [facility] [place] [facility] [address] [id number] [place] [address] Sep, [facility] [place] [facility] [address] [id number] [place] [address] Sep, [facility] [place] [facility] [address] [id number] [place] [address] Sep, [facility] [place] [facility] [address] [id number] [place] [address] Sep, [facility] [place] [facility] [address] [id number] [place] [address] Sep, [facility] [place] [facility] [address] [id number] [place] [address] Aug, [facility] [place] [facility] [address] [id number] [place] [address] Aug, [facility] [place] [facility] [address] [id number] [place] [address] Aug, [facility] [place] [facility] [address] [id number] [place] [address] Aug, [facility] [place] [facility] [address] [id number] [place] [address] Aug, [facility] [place] [facility] [address] [id number] [place] [address] Aug, [facility] [place] [facility] [address] [id number] [place] [address] Jul, [facility] [place] [facility] [address] [id number] [place] [address] Jul, [facility] [place] [facility] [address] [id number] [place] [address] Jul, [facility] [place] [facility] [address] [id number] [place] [address] Jul, [facility] [place] [facility] [address] [id number] [place] [address] Jul, [facility] [place] [facility] [address] [id number] [place] [address] Jul, [facility] [place] [facility] [address] [id number] [place] [address] Jun, [facility] [place] [facility] [address] [id number] [place] [address] Jun, [facility] [place] [facility] [address] [id number] [place] [address] Jun, [facility] [place] [facility] [address] [id number] [place] [address] Jun, [facility] [place] [facility] [address] [id number] [place] [address] Jun, [facility] [place] [facility] [address] [id number] [place] [address] Jun, [facility] [place] [facility] [address] [id number] [place] [address] Jun, [facility] [place] [facility] [address] [id number] [place] [address] Jun, [facility] [place] [facility] [address] [id number] [place] [address] Jun, [facility] [place] [facility] [address] [id number] [place] [address] Jun, [facility] [place] [facility] [address] [id number] [place] [address] 14 Jun, 2013 [facility] [address] [id number] [place] [address] 14 Jun, 2013 [facility] [place] [facility] [address] [id number] [place] [address] 14 Jun, 2013 [facility] [address] [id number] [place] [address] 30 May, 2013 [facility] [place] [facility] [address] [id number] [place] [address] 30 May, 2013 [facility] [address] [id number] [place] [address] 30 May, 2013 [facility] [place] [facility] [address] [id number] [place] [address] May, [facility] [place] [facility] [address] [id number] [place] [address] May, [facility] [place] [facility] [address] [id number] [place] [address] May, [facility] [place] [facility] [address] [id number] [place] [address] May, [facility] [place] [facility] [address] [id number] [place] [address] May, [facility] [place] [facility] [address] [id number] [place] [address] 12 May, 2013 [facility] [place] [facility] [address] [id number] [address] 11 May, 2013 [facility] [place] [facility] [address] [id number] [place] [address] 11 May, 2013 [facility] [place] [facility] [address] [id number] [place] [address] 10 May, 2013 [facility] [place] [facility] [address] [id number] [place] [address] 10 May, 2013 [facility] [place] [facility] [address] [id number] [place] [address] 09 May, 2012 [facility] [address] [id number] [place] [address] 09 May, 2012 [facility] [place] [facility] [address] [id number] [place] [address] 08 May, 2012 [facility] [address] [id number] [place] [address] 07 May, 2012 [facility] [place] [facility] [address] [id number] [place] [address] 06 May, 2012 [facility] [address] [id number] [place] [address] May, 2012 [facility] [address] [id number] [place] [address] May, [facility] [address] [id number] [place] [address] May, 2012 [facility] [place] [facility] [address] [id number] [place] [address] Apr, [facility] [place] [facility] [address] [id number] [place] [address] Apr, [facility] [address] [facility] [id number] [place] [address] Apr, [facility] [place] [facility] [address] [id number] [place] [address] Apr, [facility] [place] [facility] [address] [id number] [address] 08 Mar, 2013 [facility] [place] [facility] [address] [id number] [place] [address] 23 Feb, 2013 [facility] [place] [facility] [address] [id number] [place] [address] 16 Sep2012 [facility] [place] [facility] [address] [id number] [address] 13 Feb, 2013 [facility] [place] [facility] [address] [id number] [place] [address] Feb, [facility] [place] [facility] [address] [id number] [place] [address] Feb, [facility] [place] [facility] [address] [id number] [place] [address] Feb, [facility] [place] [facility] [address] [id number] [place] [address] Jan, [facility] [address] [id number] [place] [address] Jan, [facility] [place] [facility] [address] [id number] [place] [address] Jan, [facility] [address] [id number] [place] [address] Dec, [facility] [address] [id number] [place] [address] Dec, [facility] [address] [id number] [place] [address] Dec, [facility] [place] [facility] [address] [id number] [place] [address] Dec, [facility] [place] [facility] [address] [id number] [place] [address] Dec, [facility] [place] [facility] [address] [id number] [place] [address] Nov, [facility] [place] [facility] [address] [id number] [place] [address] Nov, [facility] [place] [facility] [address] [id number] [place] [address] Nov, [facility] [place] [facility] [address] [id number] [place] [address] Nov, [facility] [place] [facility] [address] [id number] [place] [address] Nov, [facility] [place] [facility] [address] [id number] [place] [address] Nov, [facility] [place] [facility] [address] [id number] [place] [address] Nov, [facility] [place] [facility] [address] [id number] [place] [address] Nov, [facility] [place] [facility] [address] [id number] [place] [address] Nov, [facility] [place] [facility] [address] [id number] [place] [address] Nov, [facility] [place] [facility] [address] [id number] [place] [address] October, [facility] [place] [facility] [address] [id number] [place] [address] October, [facility] [place] [facility] [address] [id number] [place] [address] Sep, [facility] [place] [facility] [address] [id number] [place] [address] Sep, [facility] [place] [facility] [address] [id number] [place] [address] Sep, [facility] [place] [facility] [address] [id number] [place] [address] Sep, [facility] [place] [facility] [address] [id number] [place] [address] Sep, [facility] [place] [facility] [address] [id number] [place] [address] Aug, [facility] [place] [facility] [address] [id number] [place] [address] Aug, [facility] [place] [facility] [address] [id number] [place] [address] Jul, [facility] [place] [facility] [address] [id number] [place] [address] Jul, [facility] [address] [id number] [place] [address] Jun, [facility] [place] [facility] [address] [id number] [place] [address] Jun, [facility] [address] [id number] [place] [address] May, [facility] [place] [facility] [address] [id number] [place] [address] May, [facility] [address] [id number] [place] [address] May, [facility] [place] [facility] [address] [id number] [place] [address] May, [facility] [place] [facility] [address] [id number] [place] [address] Apr, [facility] [address] [id number] [place] [address] Apr, [facility] [place] [facility] [address] [id number] [place] [address] Apr, [facility] [place] [facility] [address] [id number] [place] [address] Apr, [facility] [place] [facility] [address] [id number] [place] [address] Apr, [facility] [place] [facility] [address] [id number] [place] [address] Apr, [facility] [place] [facility] [address] [id number] [place] [address] Apr, [facility] [place] [facility] [address] [id number] [place] [address] Apr, [facility] [place] [facility] [address] [id number] [place] [address] Apr, [facility] [place] [facility] [address] [id number] [place] [address] Mar, [facility] [place] [facility] [address] [id number] [place] [address] Mar, [facility] [place] [facility] [address] [id number] [place] [address] Feb, [facility] [place] [facility] [address] [id number] [place] [address] Jan, [facility] [place] [facility] [address] [id number] [place] [address] Jan, [facility] [place] [facility] [address] [id number] [place] [address] Dec, [facility] [place] [facility] [address] [id number] [place] [address] Nov, [facility] [place] [facility] [address] [id number] [place] [address] Nov, [facility] [place] [facility] [address] [id number] [place] [address] October, [facility] [place] [facility] [address] [id number] [place] [address] October, [facility] [place] [facility] [address] [id number] [place] [address] Sep, [facility] [place] [facility] [address] [id number], [place] [address] Sep, [facility] [place] [facility] [address] [id number] [place] [address] May, [facility] [place] [facility] [address] [id number] [place] [address] Apr, [facility] [place] [facility] [address] [id number] [place] [address] Apr, [facility] [place] [facility] [id number] [address] 15 Apr, 2011 [facility] [id number] [address] [address], [address] [facility] [id number] [address] [address], [address] [facility] [id number] [address] [address], [address] [facility] [id number] [address] [address], [address] [facility] [id number] [place] [address] Apr, [facility] [id number] [place] [address] Mar, [facility] [id number] [place] [address] Mar, [facility] [id number] [address] Mar, [facility] [id number] [address] Mar, [facility] [id number] [address] Mar, [facility] [id number] [place] [address] Mar, IMMUNIZATIONS No Known Immunizations SOCIAL HISTORY Never Assessed REASON FOR VISIT Lab (walk-in) PLAN OF CARE VITAL SIGNS MEDICATIONS Unknown Medications RESULTS No Results PROCEDURES Procedure Date Ordered Result Body Site LIPID PANEL November 09, 2017 COMPREHEN METABOLIC PANEL November 09, 2017 ASSAY THYROID STIM HORMONE November 09, 2017 C-REACTIVE PROTEIN, HS November 09, 2017 VENIPUNCT, ROUTINE* November 09, 2017 Hemoglobin Test Send Out 0 dollar November 09, 2017 INSTRUCTIONS MEDICATIONS ADMINISTERED No Known Medications MEDICAL (GENERAL) HISTORY Type Description Date Medical History HTN Medical History Depression Medical History Arthritis Surgical History Breast lump removed Surgical History Removal of cyst from ovary Surgical History cholecystectomy Surgical History Stomach surgeryx3 Hospitalization History Mental floor at [facility]
[2018-10-27] MEDS ORDERED: OMEP20CA12 PO (16:15)
[2018-10-27] MEDS ORDERED: LORA10TA76 PO (16:15)
[2018-10-27] MEDS ORDERED: LEVO50TA6 PO (16:15)
[2018-10-27] MEDS ORDERED: LISI1TAB10 PO (16:15)
[2018-10-27] MEDS ORDERED: IBUP-30 PO (16:15)
[2018-10-27] MEDS ORDERED: ONDA4TAB11 PO (16:15)
--- OUTSIDE RECORDS SUMMARY | 2018-10-27 16:15 | XMS REPORT ---
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 Junior Automation Engineer Name Role Phone SURESH ANDRADE CP Unavailable Allergies No Known Allergies Problems Problem Type Condition Code Onset Dates Condition Status Problem Hyperlipidemia, unspecified E78.5 Active Problem Unspecified epilepsy without mention of intractable epilepsy G40.909 Active Problem Depressive disorder F32.9 Active Problem Anxiety disorder, unspecified F41.9 Active Problem Insomnia G47.00 Active Problem Thyroid nodule E04.1 Active Problem Depression F32.9 Active Problem Other chronic pain G89.29 Active Problem Arthralgia M25.50 Active Problem Right-sided low back pain without sciatica M54.5 Active Problem Rheumatoid arthritis M06.9 Active Problem Hypertension I10 Active Problem Unspecified open-angle glaucoma, stage unspecified H40.10X0 Feb 11, 2015 Active Problem 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
--- OUTSIDE RECORDS SUMMARY | 2018-10-27 16:15 | XMS REPORT ---
Author Author SURESH ANDRADE [facility] Address [address] [place] [address] Care Team Providers [employer] Fore[employer] Name Role Phone SURESH ANDRADE Unavailable PROBLEMS Type Condition ICD9-CM Code YUU05-WB Code Onset Dates Condition Status SNOMED Code Problem Arthralgia M25.50 Active 97709011 Problem Anxiety disorder, unspecified F41.9 Active 818619749 Problem Insomnia G47.00 Active 168520002 Problem Acquired hypothyroidism E03.9 Active 517255278 Problem Unspecified open-angle glaucoma, stage unspecified H40.10X0 Feb, Active 17477095 Problem Goiter E04.9 Active 5678197 Problem Presbyopia H52.4 Active 75086243 Problem Neuropathy G62.9 Active 816185859 Problem Thyroid nodule E04.1 Active 918225223 Problem Multinodular goiter E04.2 Active 434797883 Problem Chronic tension-type headache, intractable G44.221 Active 531588677 Problem Rheumatoid arthritis M06.9 Active 73176816 Problem Esophageal reflux K21.9 Active 087209042 Problem Nondependent 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 Active 537132272 Problem Unspecified epilepsy without mention of intractable epilepsy G40.909 Active 86216085 Problem Hyperlipidemia, unspecified E78.5 Active 18121294 Problem Hypertension I10 Active 15033366 Problem Depressive disorder F32.9 Active 65565608 Problem Depression F32.9 Active 87115835 Problem Other chronic pain G89.29 Active 861957095 Problem Right-sided low back pain without sciatica M54.5 Active 852672746 ALLERGIES No Information ENCOUNTERS Encounter Location Date Diagnosis [facility] [id number] [address] Jun, Acquired hypothyroidism E03.9 and Cough R05 [facility] [id number] [place] [address] May, [facility] [id number] [place] [address] Feb, Tarsal tunnel syndrome of both lower extremities G57.53 and Neuropathy G62.9 [facility] [id number] [place] [address] Dec, Pleuritis R09.1 [place] [address] [address] Nov, [place] [address] [address] October, Arthralgia, unspecified joint M25.50 and Allergy, initial encounter T78.40XA [address] [address] [address] October, [place] [address] [address] October, Acute recurrent maxillary sinusitis J01.01 and Arthralgia M25.50 [place] [address] [address] Sep, Pharyngitis due to other organism J02.8 [facility] [id number] [place] [address] Aug, Acute nasopharyngitis J00 [facility] [id number] [place] [address] Aug, Multinodular goiter E04.2 [facility] [id number] [place] [address] Aug, Thyroid nodule E04.1 [facility] [id number] [place] [address] Jul, Tarsal tunnel syndrome of both lower extremities G57.53 [place] [id number] [place] [address] Jun, Pneumonia due to infectious organism, unspecified laterality, unspecified part of lung J18.9 [facility] [id number] [place] [address] Jun, Bronchospasm with bronchitis, acute J20.9 [place] [id number] [place] [address] May, Acute non-recurrent frontal sinusitis J01.10 [place] [address] [address] May, Flat foot [pes planus] (acquired), left foot M21.42 ; Flat foot [pes planus] (acquired), right foot M21.41 and Neuropathy G62.9 [place] [id number] [place] [address] Apr, Chronic tension-type headache, intractable G44.221 ; Right lower quadrant abdominal pain R10.31 ; Cervicalgia M54.2 ; Acute gastritis without hemorrhage, unspecified gastritis type K29.00 and Hypertension I10 [place] [address] [address] Mar, Depression F32.9 and Anxiety disorder, unspecified F41.9 [place] [place] [id number] [place] [address] Feb, Depressive disorder F32.9 and Anxiety disorder, unspecified F41.9 [place] [id number] [place] [address] Jan, Dysuria R30.0 ; Lower abdominal pain R10.30 ; Acute bilateral low back pain without sciatica M54.5 ; Nausea and vomiting, unspecified intactability, vomiting of unspecified type R11.2 ; Pain in right foot M79.671 and Pain of left foot M79.672 [place] [id number] [place] [address] Dec, Urinary tract infection, site not specified N39.0 [facility] [address], [place] [address] Dec, [facility] [id number] [place] [address] Nov, [facility] [id number] [place] [address] Nov, Dysuria R30.0 [facility] [id number] [place] [address] Nov, Dysuria R30.0 and Acute cystitis with hematuria N30.01 [facility] [id number] [place] [address] October, Nausea R11.0 [facility] [id number] [place] [address] October, Thyroid nodule E04.1 ; Carpal tunnel syndrome, left upper limb G56.02 ; Carpal tunnel syndrome, right upper limb G56.01 and Constipation, unspecified constipation type K59.00 [facility] [id number] [place] [address] October, [facility] [id number] [place] [address] October, Thyroid nodule E04.1 [facility] [address] [place] [address] October, Cold thyroid nodule E04.1 [facility] [address], [place] [address] October, [facility] [id number] [place] [address] Sep, Thyroid nodule E04.1 [facility] [address] [place] [address] Sep, Thyroid nodule E04.1 [facility] [id number] [place] [address] Sep, Thyroid nodule E04.1 ; Hypertension I10 ; Esophageal reflux K21.9 and Hyperlipidemia, unspecified E78.5 [place] [address] [address] Aug, Other chronic pain G89.29 ; Sinusitis J32.9 and Hypertension I10 [place] [address] [address] 29 Jul, 2015 [place] [address] [address] 15 Jul, 2015 [place] [address] [address] 10 Jul, 2015 Insomnia G47.00 and Arthralgia M25.50 [place] [address] [address] 10 Jul, 2015 Depressive disorder F32.9 and Anxiety disorder, unspecified F41.9 [place] [address] [address] May, Right-sided low back pain without sciatica M54.5 and Depression F32.9 [place] [id number] [place] [address] Apr, Hematuria R31.9 [place] [address] [address] Mar, Other chronic pain G89.29 [place] [id number] [place] [address] Mar, Other chronic pain G89.29 [place] [address] [address] Feb, [place] [id number] [place] [address] 22 Feb, 2015 Other chronic pain 338.29 ; Dysuria 788.1 ; UTI (urinary tract infection) 599.0 ; Insomnia 780.52 ; Hot flashes 627.2 and Hypertension 401.9 [facility] [id number] [place] [address] Feb, Dysuria 788.1 [facility] [id number] [place] [address] Feb, [facility] [id number] [place] [address] Jan, [facility] [id number] [place] [address] Jan, [facility] [id number] [place] [address] Jan, Fibromyalgia 729.1 ; Hypertension 401.9 ; Dysthymia 300.4 and Hot flashes 627.2 [facility] [id number] [place] [address] Dec, [facility] [id number] [place] [address] Dec, [facility] [id number] [place] [address] Dec, [facility] [id number] [place] [address] Nov, Other chronic pain 338.29 [facility] [id number] [place] [address] October, [facility] [address] [place] [address] October, [facility] [id number] [place] [address] Sep, [facility] [id number] [place] [address] Sep, [facility] [id number] [place] [address] Aug, [facility] [place] [facility] [address] [id number] [place] [address] Aug, [facility] [place] [facility] [address] [id number] [place] [address] Aug, [facility] [place] [facility] [address] [id number] [place] [address] Aug, [facility] [place] [facility] [address] [id number] [place] [address] Aug, [facility] [place] [facility] [address] [id number] [place] [address] Aug, [facility] [place] [facility] [address] [id number] [place] [address] Aug, [facility] [place] [facility] [address] [id number] [place] [address] Aug, [facility] [place] [facility] [address] [id number] [place] [address] Aug, [facility] [place] [facility] [address] [id number] [place] [address] Aug, [facility] [place] [facility] [address] [id number] [place] [address] Aug, [facility] [place] [facility] [address] [id number] [place] [address] Aug, [facility] [place] [facility] [address] [id number] [place] [address] Aug, [facility] [place] [facility] [address] [id number] [place] [address] Aug, [facility] [place] [facility] [address] [id number] [place] [address] Jul, [facility] [place] [facility] [address] [id number] [place] [address] Jul, [facility] [place] [facility] [address] [id number] [place] [address] Jul, [facility] [address] [id number] [place] [address] Jul, [facility] [place] [facility] [address] [id number] [place] [address] Jul, [facility] [place] [facility] [address] [id number] [place] [address] Jul, [facility] [place] [facility] [address] [id number] [place] [address] 15 Jun, 2014 [facility] [place] [facility] [address] [id number] [place] [address] 15 Jun, 2014 [facility] [place] [facility] [address] [id number] [place] [address] 15 Jun, 2014 [facility] [address] [id number] [place] [address] Jun, [facility] [address] [id number] [place] [address] May, [facility] [place] [facility] [address] [id number] [place] [address] May, [facility] [place] [facility] [address] [facility] [id number] [place] [address] May, [facility] [place] [facility] [address] [id number] [place] [address] May, [facility] [place] [facility] [address] [id number] [place] [address] May, [facility] [place] [facility] [address] [id number] [place] [address] May, [facility] [place] [facility] [address] [id number] [place] [address] May, [facility] [place] [facility] [address] [id number] [place] [address] May, [facility] [place] [facility] [address] [id number] [place] [address] May, [facility] [place] [facility] [address] [id number] [place] [address] May, [facility] [place] [facility] [address] [id number] [place] [address] Apr, [facility] [place] [facility] [address] [id number] [place] [address] Apr, [facility] [place] [facility] [address] [id number] [place] [address] Apr, [facility] [place] [facility] [address] [id number] [place] [address] Apr, [facility] [place] [facility] [address] [id number] [place] [address] Apr, [facility] [place] [facility] [address] [id number] [place] [address] Apr, [facility] [place] [facility] [address] [id number] [place] [address] Apr, [facility] [place] [facility] [address] [id number] [place] [address] Apr, [facility] [place] [facility] [address] [id number] [place] [address] Apr, [facility] [place] [facility] [address] [id number] [address] Mar, [facility] [place] [facility] [address] [id number] [place] [address] Mar, [facility] [place] [facility] [address] [id number] [place] [address] Mar, [facility] [place] [facility] [address] [id number], [place] [address] Mar, [facility] [place] [facility] [address] [id number], [place] [address] 08 Mar, 2014 [facility] [place] [facility] [address] [id number] [place] [address] 08 Mar, 2014 [facility] [place] [facility] [address] [id number] [place] [address] Mar, [facility] [place] [facility] [address] [id number] [place] [address] Mar, [facility] [place] [facility] [address] [id number] [place] [address] 30 Feb, 2013 [facility] [place] [facility] [address] [id number] [place] [address] 30 Feb, 2013 [facility] [place] [facility] [address] [id number] [place] [address] 24 Feb, 2013 [facility] [place] [facility] [address] [id number] [place] [address] 24 Feb, 2013 [facility] [place] [facility] [address] [id number] [place] [address] 22 Feb, 2013 [facility] [place] [facility] [address] [id number] [place] [address] 22 Feb, 2013 [facility] [place] [facility] [address] [id number] [place] [address] 10 Feb, 2013 [facility] [place] [facility] [address] [id number] [place] [address] 10 Feb, 2013 [facility] [place] [facility] [address] [id number], [place] [address] 03 Feb, 2013 [facility] [place] [facility] [address] [id number] [place] [address] 03 Sep, 2013 [facility] [place] [facility] [address] [id number] [place] [address] 03 Feb, 2013 [facility] [place] [facility] [address] [id number] [place] [address] Sep, 2013 [facility] [place] [facility] [address] [id number] [place] [address] Feb, [facility] [place] [facility] [address] [id number] [place] [address] Feb, [facility] [place] [facility] [address] [id number] [place] [address] Jan, [facility] [place] [facility] [address] [id number] [place] [address] Jan, [facility] [place] [facility] [address] [id number] [place] [address] Dec, [facility] [place] [facility] [address] [id number] [place] [address] Dec, [facility] [place] [facility] [address] [id number] [place] [address] Dec, [facility] [place] [facility] [address] [id number] [place] [address] Dec, [facility] [place] [facility] [address] [id number] [place] [address] Dec, [facility] [place] [facility] [address] [id number] [place] [address] Dec, [facility] [place] [facility] [address] [id number] [place] [address] Dec, [facility] [place] [facility] [address] [id number] [place] [address] Dec, [facility] [place] [facility] [address] [id number] [place] [address] Dec, [facility] [place] [facility] [address] [id number] [place] [address] Dec, [facility] [place] [facility] [address] [id number] [place] [address] Dec, [facility] [place] [facility] [address] [id number] [place] [address] Dec, [facility] [place] [facility] [address] [id number] [place] [address] Dec, 2013 [facility] [place] [facility] [address] [id number] [place] [address] Dec, 2013 [facility] [place] [facility] [address] [id number] [place] [address] Dec, 2013 [facility] [place] [facility] [address] [id number] [place] [address] Dec, 2013 [facility] [place] [facility] [address] [id number] [place] [address] Dec, 2013 [facility] [place] [facility] [address] [id number] [place] [address] Dec, [facility] [place] [facility] [address] [id number] [place] [address] Dec, [facility] [place] [facility] [address] [id number] [place] [address] Nov, [facility] [place] [facility] [address] [id number] [place] [address] Nov, [facility] [place] [facility] [address] [id number] [place] [address] Nov, [facility] [place] [facility] [address] [id number] [place] [address] Nov, [facility] [place] [facility] [address] [id number], [place] [address] Nov, [facility] [place] [facility] [address] [id number] [place] [address] Nov, [facility] [place] [facility] [address] [id number] [place] [address] Nov, [facility] [place] [facility] [address] [id number] [place] [address] Nov, [facility] [place] [facility] [address] [id number], [place] [address] Nov, [facility] [address] [id number] [place] [address] October, [facility] [place] [facility] [address] [id number] [place] [address] October, [facility] [place] [facility] [address] [id number] [place] [address] October, [facility] [place] [facility] [address] [id number] [place] [address] October, [facility] [place] [facility] [address] [id number] [place] [address] October, [facility] [place] [facility] [address] [id number] [place] [address] October, [facility] [address] [id number] [place] [address] October, [facility] [place] [facility] [address] [id number] [place] [address] October, [facility] [place] [facility] [address] [id number] [place] [address] Sep, [facility] [place] [facility] [address] [id number] [place] [address] Sep, [facility] [place] [facility] [address] [id number] [place] [address] Sep, [facility] [place] [facility] [address] [id number] [place] [address] Sep, [facility] [place] [facility] [address] [id number] [place] [address] Sep, [facility] [place] [facility] [address] [id number] [place] [address] Sep, [facility] [place] [facility] [address] [id number] [place] [address] Sep, [facility] [place] [facility] [address] [id number] [place] [address] Aug, [facility] [place] [facility] [address] [id number] [place] [address] Aug, [facility] [place] [facility] [address] [id number] [place] [address] Aug, [facility] [place] [facility] [address] [id number] [place] [address] Aug, [facility] [place] [facility] [address] [id number] [place] [address] Aug, [facility] [place] [facility] [address] [id number] [place] [address] Aug, [facility] [place] [facility] [address] [id number] [place] [address] Jul, [facility] [place] [facility] [address] [id number] [place] [address] Jul, [facility] [place] [facility] [address] [id number] [place] [address] Jul, [facility] [place] [facility] [address] [id number] [place] [address] Jul, [facility] [place] [facility] [address] [id number] [place] [address] Jul, [facility] [place] [facility] [address] [id number] [place] [address] Jul, [facility] [place] [facility] [address] [id number] [place] [address] Jun, [facility] [place] [facility] [address] [id number] [place] [address] Jun, [facility] [place] [facility] [address] [id number] [place] [address] Jun, [facility] [place] [facility] [address] [id number] [place] [address] Jun, [facility] [address] [id number] [place] [address] Jun, [facility] [place] [facility] [address] [id number] [place] [address] Jun, [facility] [place] [facility] [address] [id number] [place] [address] Jun, [facility] [place] [facility] [address] [id number] [place] [address] Jun, [facility] [place] [facility] [address] [id number] [place] [address] Jun, [facility] [place] [facility] [address] [id number] [place] [address] Jun, [facility] [place] [facility] [address] [id number] [place] [address] Jun, [facility] [place] [facility] [address] [id number] [place] [address] Jun, [facility] [place] [facility] [address] [id number] [place] [address] Jun, [facility] [place] [facility] [address] [id number] [place] [address] May, [facility] [place] [facility] [address] [id number] [place] [address] May, [facility] [place] [facility] [address] [id number] [place] [address] May, [facility] [place] [facility] [address] [id number] [place] [address] May, [facility] [place] [facility] [address] [id number] [place] [address] May, [facility] [place] [facility] [address] [id number] [place] [address] May, [facility] [place] [facility] [address] [id number] [place] [address] 14 May, 2013 [facility] [address] [id number] [place] [address] 12 May, 2013 [facility] [place] [facility] [address] [id number] [place] [address] 12 May, 2013 [facility] [address] [id number] [place] [address] May, [facility] [place] [facility] [address] [id number] [place] [address] 11 May, 2013 [facility] [address] [id number] [place] [address] May, [facility] [address] [id number] [place] [address] May, [facility] [address] [id number] [place] [address] May, [facility] [address] [id number] [place] [address] May, [facility] [address] [id number] [place] [address] May, [facility] [address] [id number] [place] [address] May, [facility] [place] [facility] [address] [id number] [place] [address] May, [facility] [place] [facility] [address] [id number] [place] [address] May, [facility] [place] [facility] [address] [id number] [place] [address] May, [facility] [place] [facility] [address] [id number] [place] [address] May, [facility] [place] [facility] [address] [id number] [place] [address] Apr, [facility] [place] [facility] [address] [id number] [place] [address] Apr, [facility] [place] [facility] [address] [id number] [place] [address] Apr, [facility] [place] [facility] [address] [id number] [place] [address] Apr, [facility] [place] [facility] [address] [id number] [place] [address] Mar, [facility] [place] [facility] [address] [id number] [place] [address] 23 Feb, 2013 [facility] [place] [facility] [address] [id number] [place] [address] 16 Feb, 2013 [facility] [place] [facility] [address] [id number] [place] [address] 13 Feb, 2013 [facility] [place] [facility] [address] [id number] [place] [address] 10 Feb, 2013 [facility] [place] [facility] [address] [id number] [place] [address] 09 Feb, 2013 [facility] [place] [facility] [address] [id number] [place] [address] 09 Feb, 2013 [facility] [place] [facility] [address] [id number] [place] [address] Jan, [facility] [place] [facility] [address] [id number], [place] [address] Jan, [facility] [place] [facility] [address] [id number] [place] [address] Jan, [facility] [place] [facility] [address] [id number] [place] [address] Dec, [facility] [place] [facility] [address] [id number] [place] [address] Dec, [facility] [place] [facility] [address] [id number] [place] [address] 17 Dec, 2012 [facility] [address] [id number] [place] [address] 15 Dec, 2012 [facility] [place] [facility] [address] [id number] [place] [address] Dec, [facility] [place] [facility] [address] [id number] [place] [address] Nov, [facility] [place] [facility] [address] [id number] [place] [address] Nov, [facility] [place] [facility] [address] [id number] [place] [address] Nov, [facility] [place] [facility] [address] [id number] [place] [address] Nov, [facility] [place] [facility] [address] [id number] [place] [address] Nov, [facility] [place] [facility] [address] [id number] [place] [address] 08 Nov, 2012 [facility] [place] [facility] [address] [id number] [place] [address] Nov, [facility] [place] [facility] [address] [id number] [place] [address] Nov, [facility] [place] [facility] [address] [id number] [place] [address] 05 Nov, 2012 [facility] [place] [facility] [address] [id number] [place] [address] Nov, [facility] [place] [facility] [address] [id number] [place] [address] October, [facility] [place] [facility] [address] [id number] [place] [address] October, [facility] [place] [facility] [address] [id number] [place] [address] Sep, [facility] [place] [facility] [address] [id number] [place] [address] Sep, [facility] [address] [id number] [place] [address] Sep, [facility] [place] [facility] [address] [id number] [place] [address] Sep, [facility] [place] [facility] [address] [id number] [place] [address] Sep, [facility] [address] [id number] [place] [address] Aug, [facility] [place] [facility] [address] [id number] [place] [address] Aug, [facility] [address] [id number] [place] [address] Jul, [facility] [address] [id number] [place] [address] Jul, [facility] [address] [id number] [place] [address] Jun, [facility] [address] [id number] [place] [address] Jun, [facility] [address] [id number] [place] [address] May, [facility] [place] [facility] [address] [id number] [place] [address] May, [facility] [place] [facility] [address] [id number] [place] [address] May, [facility] [place] [facility] [address] [id number] [place] [address] May, [facility] [place] [facility] [address] [id number] [place] [address] Apr, [facility] [place] [facility] [address] [id number] [place] [address] Apr, [facility] [place] [facility] [address] [id number] [place] [address] Apr, [facility] [place] [facility] [address] [id number] [place] [address] Apr, [facility] [place] [facility] [address] [id number] [place] [address] Apr, [facility] [place] [facility] [address] [id number] [place] [address] Apr, [facility] [place] [facility] [address] [id number] [place] [address] Apr, [facility] [place] [facility] [address] [id number] [place] [address] Apr, [facility] [place] [facility] [address] [id number] [place] [address] Apr, [facility] [place] [facility] [address] [id number] [place] [address] 15 Mar, 2012 [facility] [place] [facility] [address] [id number] [place] [address] Mar, [facility] [place] [facility] [address] [id number] [place] [address] 05 Feb, 2012 [facility] [place] [facility] [address] [id number], [place] [address] Jan, [facility] [place] [facility] [address] [id number], [place] [address] Jan, [facility] [place] [facility] [address] [id number] [place] [address] Dec, [facility] [place] [facility] [address] [id number] [place] [address] Nov, [facility] [place] [facility] [address] [id number] [place] [address] Nov, [facility] [place] [facility] [address] [id number] [place] [address] October, [facility] [address] [id number] [place] [address] October, [facility] [place] [facility] [address] [id number] [place] [address] Sep, [facility] [address] [id number] [place] [address] Sep, [facility] [place] [facility] [address] [id number] [place] [address] May, [facility] [address] [id number] [place] [address] Apr, [facility] [place] [facility] [address] [id number] [place] [address] Apr, [facility] [place] [facility] [address] [id number] [place] [address] Apr, [facility] [place] [facility] [address] [id number] [place] [address] 15 Apr, 2011 [facility] [place] [facility] [address] [id number] [place] [address] 15 Apr, 2011 [facility] [address] [id number] [place] [address] Apr, [facility] [place] [facility] [address] [id number] [place] [address] Apr, [facility] [place] [facility] [address] [id number] [place] [address] Apr, [facility] [place] [facility] [address] [id number] [place] [address] Mar, [facility] [place] [facility] [address] [id number] [place] [address] Mar, [facility] [place] [facility] [address] [id number] [place] [address] Mar, [facility] [address] [facility] [id number] [place] [address] Mar, [facility] [address] [facility] [id number] [place] [address] Mar, [facility] [address] [facility] [id number] [place] [address] Mar, IMMUNIZATIONS No Known Immunizations SOCIAL HISTORY Never Assessed REASON FOR VISIT Requests return call PLAN OF CARE VITAL SIGNS MEDICATIONS No Known Medications RESULTS No Results PROCEDURES No Known procedures INSTRUCTIONS MEDICATIONS ADMINISTERED No Known Medications MEDICAL (GENERAL) HISTORY Type Description Date Medical History HTN Medical History Depression Medical History Arthritis Surgical History Breast lump removed Surgical History Removal of cyst from ovary Surgical History cholecystectomy Surgical History Stomach surgeryx3 Hospitalization History Mental floor at [facility]
--- OUTSIDE RECORDS SUMMARY | 2018-10-27 16:15 | XMS REPORT ---
Author Author ERIC BINGHAM [facility] Address [address] [place] [address] Care Team Providers Care Architectural Engineer Name Role Phone ERIC BINGHAM Unavailable PROBLEMS Type Condition ICD9-CM Code [id number] Code Onset Dates Condition Status SNOMED Code Problem Right-sided low back pain without sciatica M54.5 Active 611601307 Problem Arthralgia M25.50 Active 57842450 Problem Insomnia G47.00 Active 875537617 Problem Goiter E04.9 Active 8339177 Problem Presbyopia H52.4 Active 96157516 Problem Multinodular goiter E04.2 Active 155749171 Problem Thyroid nodule E04.1 Active 132044927 Problem Anxiety disorder, unspecified F41.9 Active 369632308 Problem Chronic tension-type headache, intractable G44.221 Active 980903307 Problem Neuropathy G62.9 Active 717092507 Problem Esophageal reflux K21.9 Active 234319854 Problem Depressive disorder F32.9 Active 83113142 Problem Unspecified open-angle glaucoma, stage unspecified H40.10X0 Feb, Active 93801042 Problem Rheumatoid arthritis M06.9 Active 22427007 Problem Other chronic pain G89.29 Active 801447398 Problem Hyperlipidemia, unspecified E78.5 Active 46972558 Problem Nondependent 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 Active 094892265 Problem Hypertension I10 Active 18565037 Problem Unspecified epilepsy without mention of intractable epilepsy G40.909 Active 99451555 Problem Depression F32.9 Active 33284934 ALLERGIES Substance Reaction Event Type Date Status Penicillin V Potassium anaphylaxis Drug Allergy Aug, Active Depakote 500 Mg Tablet,delayed Release (dr/ec) Unknown Non Drug Allergy Aug, Active Hydrocodone And Marijuana Hx of abuse Non Drug Allergy Aug, Active SOCIAL HISTORY Never Assessed PLAN OF CARE Activity Details Follow Up prn Reason: VITAL SIGNS Height 62 in 2016-08-13 Weight 247.0 lbs 2016-08-13 Temperature 97.8 degrees Fahrenheit 2016-08-13 Heart Rate 84 bpm 2016-08-13 Respiratory Rate 24 2016-08-13 Oximetry 98 % 2016-08-13 BMI 45.17 kg/m2 2016-08-13 Blood pressure systolic 132 mmHg 2016-08-13 Blood pressure diastolic 82 mmHg 2016-08-13 MEDICATIONS Medication Instructions Dosage Frequency Start Date End Date Duration Status Zofran ODT 4 MG Orally every 8 hrs 1 tablet on the tongue and allow to dissolve 8h Jan, Active Lisinopril-Hydrochlorothiazide 20-25 MG TAKE ONE TABLET BY MOUTH IN THE MORNING Active Carafate 1 GM Orally 4 times a day before meals and bedtime 1 tablet Active Omeprazole Magnesium 20 mg 1 capsule by Oral route 2 times per day Mar, Active RESULTS Name Result Date Reference Range TSH W/ FREE T4 2016-08-13 TSH 1.150 0.450-4.500 T4,Free(Direct) 1.30 0.82-1.77 Ultrasound : Thyroid 2016-08-18 PROCEDURES Procedure Date Ordered Result Body Site MEASURE BLOOD OXYGEN LEVEL August 13, 2016 ASSAY THYROID STIM HORMONE August 13, 2016 VENIPUNCT, ROUTINE* August 13, 2016 ASSAY OF FREE THYROXINE August 13, 2016 IMMUNIZATIONS No Known Immunizations MEDICAL (GENERAL) HISTORY Type Description Date Medical History HTN Medical History Depression Medical History Arthritis Surgical History Breast lump removed Surgical History Removal of cyst from ovary Surgical History cholecystectomy Surgical History Stomach surgeryx3 Hospitalization History Mental floor at [facility]
--- OUTSIDE RECORDS SUMMARY | 2018-10-27 16:15 | XMS REPORT ---
Author Author CURLY LAUREN Organization [facility] [place] Address [address] [place] [address] Care Team Providers Care Fire Protection Fabricator Name Role Phone LAUREN RAWLS Unavailable PROBLEMS Type Condition ICD9-CM Code IHU57-OS Code Onset Dates Condition Status SNOMED Code Problem Right-sided low back pain without sciatica M54.5 Active 764903761 Problem Insomnia G47.00 Active 740721318 Problem Arthralgia M25.50 Active 87550061 Problem Goiter E04.9 Active 0245102 Problem Unspecified open-angle glaucoma, stage unspecified H40.10X0 Feb, Active 96215347 Problem Multinodular goiter E04.2 Active 277118869 Problem Thyroid nodule E04.1 Active 299769612 Problem Anxiety disorder, unspecified F41.9 Active 103298917 Problem Chronic tension-type headache, intractable G44.221 Active 984144541 Problem Neuropathy G62.9 Active 767465740 Problem Hypertension I10 Active 87743493 Problem Nondependent 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 Active 140022054 Problem Presbyopia H52.4 Active 89669048 Problem Rheumatoid arthritis M06.9 Active 28613770 Problem Depressive disorder F32.9 Active 77365968 Problem Unspecified epilepsy without mention of intractable epilepsy G40.909 Active 71530938 Problem Esophageal reflux K21.9 Active 991284889 Problem Other chronic pain G89.29 Active 392712766 Problem Hyperlipidemia, unspecified E78.5 Active 94350953 Problem Depression F32.9 Active 14218424 ALLERGIES Unknown Allergies SOCIAL HISTORY No smoking Hx information available PLAN OF CARE Activity Details Follow Up 6 Weeks Reason: VITAL SIGNS MEDICATIONS Unknown Medications RESULTS No Results PROCEDURES Procedure Date Ordered Related Diagnosis Body Site INJ TENDON SHEATH/LIGAMENT May 14, 2016 DEPO MEDROL 80 MG/ML May 14, 2016 Office Visit, Est Pt., Level 3 May 14, 2016 IMMUNIZATIONS No Known Immunizations
--- OUTSIDE RECORDS SUMMARY | 2018-10-27 16:16 | XMS REPORT ---
Author Author ERIC BINGHAM [facility] Address [address] [place] [address] Care Team Providers Care Manufacturers Service Representative Name Role Phone ERIC BINGHAM Unavailable PROBLEMS Type Condition ICD9-CM Code HRQ65-WM Code Onset Dates Condition Status SNOMED Code Problem Right-sided low back pain without sciatica M54.5 Active 444166729 Problem Arthralgia M25.50 Active 12797290 Problem Insomnia G47.00 Active 081165149 Problem Goiter E04.9 Active 5354890 Problem Presbyopia H52.4 Active 95266436 Problem Multinodular goiter E04.2 Active 567433525 Problem Thyroid nodule E04.1 Active 756727174 Problem Anxiety disorder, unspecified F41.9 Active 749466399 Problem Chronic tension-type headache, intractable G44.221 Active 356198055 Problem Neuropathy G62.9 Active 838237459 Problem Esophageal reflux K21.9 Active 806362764 Problem Depressive disorder F32.9 Active 03178443 Problem Unspecified open-angle glaucoma, stage unspecified H40.10X0 Feb, Active 52310459 Problem Rheumatoid arthritis M06.9 Active 01882810 Problem Other chronic pain G89.29 Active 394290829 Problem Hyperlipidemia, unspecified E78.5 Active 06629121 Problem Nondependent 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 Active 028986194 Problem Hypertension I10 Active 51159734 Problem Unspecified epilepsy without mention of intractable epilepsy G40.909 Active 50774736 Problem Depression F32.9 Active 07635614 ALLERGIES No Information SOCIAL HISTORY Never Assessed PLAN OF CARE VITAL SIGNS MEDICATIONS Medication Instructions Dosage Frequency Start Date End Date Duration Status Levothyroxine Sodium 50 MCG Orally Once a day 1 tablet on an empty stomach in the morning 24h Aug, 30 day(s) Active RESULTS No Results PROCEDURES No Known procedures IMMUNIZATIONS No Known Immunizations MEDICAL (GENERAL) HISTORY Type Description Date Medical History HTN Medical History Depression Medical History Arthritis Surgical History Breast lump removed Surgical History Removal of cyst from ovary Surgical History cholecystectomy Surgical History Stomach surgeryx3 Hospitalization History Mental floor at [facility]
--- OUTSIDE RECORDS SUMMARY | 2018-10-27 16:16 | XMS REPORT ---
Author Author LAUREN RAWLS Organization [facility] Address [address] [place] [address] Care Team Providers Care Data Administrator Name Role Phone LAUREN RAWLS Unavailable PROBLEMS Type Condition ICD9-CM Code FTH63-CT Code Onset Dates Condition Status SNOMED Code Problem Arthralgia M25.50 Active 35929970 Problem Anxiety disorder, unspecified F41.9 Active 849780152 Problem Insomnia G47.00 Active 817024793 Problem Acquired hypothyroidism E03.9 Active 606398505 Problem Unspecified open-angle glaucoma, stage unspecified H40.10X0 Feb, Active 87040567 Problem Goiter E04.9 Active 5402312 Problem Presbyopia H52.4 Active 49658823 Problem Neuropathy G62.9 Active 823318912 Problem Thyroid nodule E04.1 Active 791512910 Problem Multinodular goiter E04.2 Active 521358250 Problem Chronic tension-type headache, intractable G44.221 Active 253569908 Problem Rheumatoid arthritis M06.9 Active 10861138 Problem Esophageal reflux K21.9 Active 234537949 Problem Nondependent 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 Active 302423614 Problem Unspecified epilepsy without mention of intractable epilepsy G40.909 Active 60815238 Problem Hyperlipidemia, unspecified E78.5 Active 64555071 Problem Hypertension I10 Active 02327068 Problem Depressive disorder F32.9 Active 07664633 Problem Depression F32.9 Active 18088272 Problem Other chronic pain G89.29 Active 375681994 Problem Right-sided low back pain without sciatica M54.5 Active 120929711 ALLERGIES No Information ENCOUNTERS Encounter Location Date Diagnosis [facility] [address] [facility] [id number] [address] October, [facility] [address] [facility] [id number], [place] [address] Jun, Acquired hypothyroidism E03.9 and Cough R05 [place] [id number] [place] [address] May, [place] [address] [address] Feb, Tarsal tunnel syndrome of both lower extremities G57.53 and Neuropathy G62.9 [place] [address] [address] Dec, Pleuritis R09.1 [place] [address] [address] Nov, [place] [address] [address] October, Arthralgia, unspecified joint M25.50 and Allergy, initial encounter T78.40XA [place] [address] [address] October, [place] [address] [address] October, Acute recurrent maxillary sinusitis J01.01 and Arthralgia M25.50 [place] [id number] [place] [address] Sep, Pharyngitis due to other organism J02.8 [place] [id number] [place] [address] Aug, Acute nasopharyngitis J00 [place] [id number] [place] [address] Aug, Multinodular goiter E04.2 [place] [id number] [place] [address] Aug, Thyroid nodule E04.1 [place] [id number] [place] [address] Jul, Tarsal tunnel syndrome of both lower extremities G57.53 [place] [id number] [place] [address] Jun, Pneumonia due to infectious organism, unspecified laterality, unspecified part of lung J18.9 [place] [id number] [place] [address] Jun, Bronchospasm with bronchitis, acute J20.9 [place] [address] [address] May, Acute non-recurrent frontal sinusitis J01.10 [place] [address] [address] May, Flat foot [pes planus] (acquired), left foot M21.42 ; Flat foot [pes planus] (acquired), right foot M21.41 and Neuropathy G62.[address] [address] Apr, Chronic tension-type headache, intractable G44.221 ; Right lower quadrant abdominal pain R10.31 ; Cervicalgia M54.2 ; Acute gastritis without hemorrhage, unspecified gastritis type K29.00 and Hypertension I10 [place] [id number] [place] [address] Mar, Depression F32.9 and Anxiety disorder, unspecified F41.9 [place] [id number] [place] [address] Feb, Depressive disorder F32.9 and Anxiety disorder, unspecified F41.9 [place] [id number] [place] [address] Jan, Dysuria R30.0 ; Lower abdominal pain R10.30 ; Acute bilateral low back pain without sciatica M54.5 ; Nausea and vomiting, unspecified intactability, vomiting of unspecified type R11.2 ; Pain in right foot M79.671 and Pain of left foot M79.672 [place] [id number] [place] [address] Dec, Urinary tract infection, site not specified N39.0 [facility] [id number] [place] [address] Dec, [facility] [id number] [place] [address] Nov, [facility] [id number] [place] [address] Nov, Dysuria R30.0 [facility] [id number] [place] [address] Nov, Dysuria R30.0 and Acute cystitis with hematuria N30.01 [facility] [id number] [place] [address] October, Nausea R11.0 [facility] [id number] [place] [address] October, Thyroid nodule E04.1 ; Carpal tunnel syndrome, left upper limb G56.02 ; Carpal tunnel syndrome, right upper limb G56.01 and Constipation, unspecified constipation type K59.00 [facility] [id number] [place] [address] October, [facility] [id number] [place] [address] October, Thyroid nodule E04.1 [facility] [id number] [place] [address] October, Cold thyroid nodule E04.1 [facility] [id number] [place] [address] October, [facility] [id number] [place] [address] Sep, Thyroid nodule E04.1 [facility] [id number] [place] [address] Sep, Thyroid nodule E04.1 [place] [id number] [place] [address] Sep, Thyroid nodule E04.1 ; Hypertension I10 ; Esophageal reflux K21.9 and Hyperlipidemia, unspecified E78.5 [place] [address] [address] Aug, Other chronic pain G89.29 ; Sinusitis J32.9 and Hypertension I10 [place] [address] [address] Jul, [place] [address] [address] 15 Jul, 2015 [place] [address] [address] 10 Jul, 2015 Insomnia G47.00 and Arthralgia M25.50 [place] [address] [address] Jul, Depressive disorder F32.9 and Anxiety disorder, unspecified F41.9 [place] [address] [address] May, Right-sided low back pain without sciatica M54.5 and Depression F32.9 [place] [id number] [place] [address] Apr, Hematuria R31.9 [place] [address] [address] Mar, Other chronic pain G89.29 [place] [address] [address] Mar, Other chronic pain G89.29 [place] [address] [address] Feb, [place] [address] [address] Feb, Other chronic pain 338.29 ; Dysuria 788.1 ; UTI (urinary tract infection) 599.0 ; Insomnia 780.52 ; Hot flashes 627.2 and Hypertension 401.9 [facility] [address] [address] Feb, Dysuria 788.1 [facility] [address] [address] Feb, [facility] [id number] [place] [address] Jan, [facility] [id number] [place] [address] Jan, [facility] [id number] [place] [address] Jan, Fibromyalgia 729.1 ; Hypertension 401.9 ; Dysthymia 300.4 and Hot flashes 627.2 [facility] [address] [address] Dec, [facility] [address] [address] Dec, [facility] [address] [address] Dec, [facility] [address] [address] Nov, Other chronic pain 338.29 [facility] [address] [address] October, [facility] [address] [address] October, [facility] [address] [address] Sep, [facility] [address] [address] Sep, [facility] [place] [facility] [address] [id number] [place] [address] Aug, [facility] [place] [facility] [address] [id number] [place] [address] Aug, [facility] [place] [facility] [address] [id number] [place] [address] Aug, [facility] [place] [facility] [address] [id number] [place] [address] Aug, [facility] [place] [facility] [address] [id number] [place] [address] Aug, [facility] [place] [facility] [address] [id number] [place] [address] Aug, [facility] [place] [facility] [address] [id number] [place] [address] Aug, [facility] [place] [facility] [address] [id number] [place] [address] Aug, [facility] [place] [facility] [address] [id number] [place] [address] Aug, [facility] [place] [facility] [address] [id number] [place] [address] Aug, [facility] [place] [facility] [address] [id number] [place] [address] Aug, [facility] [place] [facility] [address] [id number] [place] [address] Aug, [facility] [place] [facility] [address] [id number] [place] [address] Aug, [facility] [place] [facility] [address] [id number] [place] [address] Aug, [facility] [place] [facility] [address] [id number] [place] [address] Jul, [facility] [place] [facility] [address] [id number] [place] [address] Jul, [facility] [address] [id number] [place] [address] Jul, [facility] [place] [facility] [address] [id number] [place] [address] Jul, [facility] [place] [facility] [address] [id number] [place] [address] Jul, [facility] [place] [facility] [address] [id number] [place] [address] Jul, [facility] [place] [facility] [address] [id number] [place] [address] Jun, [facility] [place] [facility] [address] [id number] [place] [address] Jun, [facility] [place] [facility] [address] [id number] [place] [address] Jun, [facility] [place] [facility] [address] [id number] [place] [address] Jun, [facility] [place] [facility] [address] [id number] [place] [address] May, [facility] [place] [facility] [address] [facility] [id number] [place] [address] May, [facility] [place] [facility] [address] [id number] [place] [address] May, [facility] [place] [facility] [address] [id number] [place] [address] May, [facility] [place] [facility] [address] [id number] [place] [address] May, [facility] [place] [facility] [address] [id number] [place] [address] May, [facility] [place] [facility] [address] [facility] [id number] [place] [address] May, [facility] [place] [facility] [address] [id number] [place] [address] May, [facility] [place] [facility] [address] [id number] [place] [address] May, [facility] [place] [facility] [address] [id number] [place] [address] May, [facility] [place] [facility] [address] [id number] [place] [address] Apr, [facility] [place] [facility] [address] [id number] [place] [address] Apr, [facility] [place] [facility] [address] [id number] [place] [address] Apr, [facility] [place] [facility] [address] [id number] [place] [address] Apr, [facility] [place] [facility] [address] [id number] [place] [address] Apr, [facility] [place] [facility] [address] [id number] [place] [address] Apr, [facility] [place] [facility] [address] [id number] [place] [address] Apr, [facility] [place] [facility] [address] [id number] [place] [address] Apr, [facility] [place] [facility] [address] [id number] [place] [address] Apr, [facility] [place] [facility] [address] [id number] [place] [address] Mar, [facility] [place] [facility] [address] [id number] [place] [address] Mar, [facility] [place] [facility] [address] [id number] [place] [address] Mar, [facility] [place] [facility] [address] [id number] [place] [address] Mar, [facility] [place] [facility] [address] [id number] [place] [address] Mar, [facility] [place] [facility] [address] [id number] [place] [address] Mar, [facility] [place] [facility] [address] [id number] [place] [address] Mar, [facility] [place] [facility] [address] [id number] [place] [address] Mar, [facility] [place] [facility] [address] [id number] [place] [address] 30 Feb, 2013 [facility] [place] [facility] [address] [id number] [place] [address] 30 Feb, 2013 [facility] [place] [facility] [address] [id number] [place] [address] 24 Feb, 2013 [facility] [place] [facility] [address] [id number] [place] [address] 24 Feb, 2013 [facility] [place] [facility] [address] [id number] [place] [address] 22 Feb, 2013 [facility] [place] [facility] [address] [id number] [place] [address] 22 Feb, 2013 [facility] [place] [facility] [address] [id number] [place] [address] 10 Feb, 2013 [facility] [place] [facility] [address] [id number], [place] [address] 10 Feb, 2013 [facility] [place] [facility] [address] [id number] [place] [address] 03 Sep, 2013 [facility] [place] [facility] [address] [id number] [place] [address] 03 Sep, 2013 [facility] [place] [facility] [address] [id number] [place] [address] 03 Sep, 2013 [facility] [place] [facility] [address] [id number] [place] [address] Feb, 2013 [facility] [place] [facility] [address] [id number] [place] [address] Feb, [facility] [place] [facility] [address] [id number] [place] [address] Feb, [facility] [place] [facility] [address] [id number] [place] [address] Jan, [facility] [place] [facility] [address] [id number] [place] [address] Jan, [facility] [place] [facility] [address] [id number] [place] [address] Dec, [facility] [place] [facility] [address] [id number] [place] [address] Dec, [facility] [place] [facility] [address] [id number] [place] [address] Dec, [facility] [place] [facility] [address] [id number] [place] [address] Dec, [facility] [place] [facility] [address] [id number] [place] [id number] Dec, [facility] [place] [facility] [address] [id number] [place] [address] Dec, [facility] [place] [facility] [address] [id number] [place] [address] Dec, [facility] [place] [facility] [address] [id number] [place] [address] Dec, [facility] [place] [facility] [address] [id number] [place] [address] Dec, [facility] [place] [facility] [address] [id number] [place] [address] Dec, [facility] [place] [facility] [address] [id number] [place] [address] Dec, [facility] [place] [facility] [address] [id number] [place] [address] Dec, 2013 [facility] [place] [facility] [address] [id number] [place] [address] Dec, 2013 [facility] [place] [facility] [address] [id number] [place] [address] Dec, 2013 [facility] [place] [facility] [address] [id number] [place] [address] Dec, 2013 [facility] [place] [facility] [address] [id number] [place] [address] Dec, 2013 [facility] [place] [facility] [address] [id number] [place] [address] Dec, [facility] [place] [facility] [address] [id number] [place] [address] Dec, [facility] [place] [facility] [address] [id number] [place] [address] Dec, [facility] [place] [facility] [address] [id number] [place] [address] Nov, [facility] [place] [facility] [address] [id number] [place] [address] Nov, [facility] [place] [facility] [address] [id number] [place] [address] Nov, [facility] [place] [facility] [address] [id number] [place] [address] Nov, [facility] [place] [facility] [address] [id number] [place] [address] Nov, [facility] [place] [facility] [address] [id number] [place] [address] Nov, [facility] [place] [facility] [address] [id number] [place] [address] Nov, [facility] [place] [facility] [address] [id number] [place] [address] Nov, [facility] [place] [facility] [address] [id number] [place] [address] Nov, [facility] [place] [facility] [address] [id number] [place] [address] October, [facility] [place] [facility] [address] [id number] [place] [address] October, [facility] [place] [facility] [address] [id number] [place] [address] October, [facility] [place] [facility] [address] [id number] [place] [address] October, [facility] [place] [facility] [address] [id number] [place] [address] October, [facility] [place] [facility] [address] [id number] [place] [address] October, [facility] [place] [facility] [address] [id number] [place] [address] October, [facility] [place] [facility] [address] [id number] [place] [address] October, [facility] [place] [facility] [address] [id number] [place] [address] Sep, [facility] [place] [facility] [address] [id number] [place] [address] Sep, [facility] [place] [facility] [address] [id number] [place] [address] Sep, [facility] [place] [facility] [address] [id number] [place] [address] Sep, [facility] [place] [facility] [address] [id number] [place] [address] Sep, [facility] [place] [facility] [address] [id number] [place] [address] Sep, [facility] [place] [facility] [address] [id number] [place] [address] Sep, [facility] [place] [facility] [address] [id number] [place] [address] Aug, [facility] [place] [facility] [address] [id number] [place] [address] Aug, [facility] [place] [facility] [address] [id number] [place] [address] Aug, [facility] [place] [facility] [address] [id number] [place] [address] Aug, [facility] [place] [facility] [address] [id number] [place] [address] Aug, [facility] [place] [facility] [address] [facility] [id number] [place] [address] Aug, [facility] [place] [facility] [address] [id number] [place] [address] Jul, [facility] [place] [facility] [address] [id number] [place] [address] Jul, [facility] [place] [facility] [address] [id number] [place] [address] Jul, [facility] [place] [facility] [address] [facility] [id number] [place] [address] Jul, [facility] [place] [facility] [address] [id number] [place] [address] Jul, [facility] [place] [facility] [address] [id number] [place] [address] Jul, [facility] [place] [facility] [address] [id number] [place] [address] Jun, [facility] [place] [facility] [address] [id number] [place] [address] Jun, [facility] [place] [facility] [address] [id number] [place] [address] Jun, [facility] [place] [facility] [address] [id number] [place] [address] Jun, [facility] [place] [facility] [address] [id number] [place] [address] Jun, [facility] [place] [facility] [address] [id number] [place] [address] Jun, [facility] [place] [facility] [address] [id number] [place] [address] Jun, [facility] [place] [facility] [address] [id number] [place] [address] Jun, [facility] [place] [facility] [address] [id number] [place] [address] Jun, [facility] [place] [facility] [address] [id number] [place] [address] Jun, [facility] [place] [facility] [address] [id number] [place] [address] Jun, [facility] [place] [facility] [address] [id number] [place] [address] Jun, [facility] [place] [facility] [address] [id number] [place] [address] Jun, [facility] [place] [facility] [address] [id number] [place] [address] May, [facility] [place] [facility] [address] [id number] [place] [address] May, [facility] [place] [facility] [address] [id number] [place] [address] May, [facility] [place] [facility] [address] [id number] [place] [address] May, [facility] [place] [facility] [address] [id number] [place] [address] May, [facility] [place] [facility] [address] [id number] [place] [address] 14 May, 2013 [facility] [address] [id number] [place] [address] 14 May, 2013 [facility] [address] [id number] [place] [address] 12 May, 2013 [facility] [address] [id number] [place] [address] 12 May, 2013 [facility] [address] [id number] [place] [address] 11 May, 2013 [facility] [address] [id number] [place] [address] 11 May, 2013 [facility] [address] [id number] [place] [address] 10 May, 2013 [facility] [address] [id number] [place] [address] 10 May, 2013 [facility] [address] [id number] [place] [address] 09 May, 2013 [facility] [address] [id number] [place] [address] 09 May, 2013 [facility] [address] [facility] [id number] [place] [address] 08 May, 2013 [facility] [address] [id number] [place] [address] 07 May, 2013 [facility] [address] [id number] [place] [address] 06 May, 2013 [facility] [address] [id number] [place] [address] 06 May, 2013 [facility] [address] [id number] [place] [address] 06 May, 2013 [facility] [address] [address] [id number] [place] [address] May, [facility] [address] [id number] [place] [address] Apr, [facility] [place] [facility] [address] [id number] [place] [address] Apr, [facility] [place] [facility] [address] [id number] [place] [address] Apr, [facility] [place] [facility] [address] [id number] [place] [address] Apr, [facility] [place] [facility] [address] [id number] [place] [address] Mar, [facility] [place] [facility] [address] [id number] [place] [address] 23 Feb, 2013 [facility] [place] [facility] [address] [id number] [place] [address] 16 Feb, 2013 [facility] [place] [facility] [address] [id number] [place] [address] 13 Feb, 2013 [facility] [place] [facility] [address] [id number] [place] [address] 10 Feb, 2013 [facility] [place] [facility] [address] [id number] [place] [address] 09 Feb, 2013 [facility] [place] [facility] [address] [id number] [place] [address] Feb, [facility] [place] [facility] [address] [id number], [place] [address] Jan, [facility] [place] [facility] [address] [id number] [place] [address] Jan, [facility] [place] [facility] [address] [id number] [place] [address] Jan, [facility] [place] [facility] [address] [id number], [place] [address] Dec, [facility] [place] [facility] [address] [id number], [place] [address] Dec, [facility] [place] [facility] [address] [id number] [place] [address] 17 Dec, 2012 [facility] [place] [facility] [address] [id number] [place] [address] 15 Dec, 2012 [facility] [place] [facility] [address] [id number] [place] [address] Dec, [facility] [place] [facility] [address] [id number] [place] [address] Nov, [facility] [place] [facility] [address] [id number] [place] [address] Nov, [facility] [place] [facility] [address] [id number] [place] [address] Nov, [facility] [place] [facility] [address] [id number] [place] [address] Nov, [facility] [place] [facility] [address] [id number] [place] [address] Nov, [facility] [place] [facility] [address] [id number] [place] [address] Nov, [facility] [place] [facility] [address] [id number] [place] [address] Nov, [facility] [place] [facility] [address] [id number] [place] [address] Nov, [facility] [place] [facility] [address] [id number] [place] [address] Nov, [facility] [place] [facility] [address] [id number] [place] [address] Nov, [facility] [place] [facility] [address] [id number] [place] [address] October, [facility] [place] [facility] [address] [id number] [place] [address] October, [facility] [place] [facility] [address] [id number] [place] [address] Sep, [facility] [address] [id number] [place] [address] Sep, [facility] [place] [facility] [address] [id number] [place] [address] Sep, [facility] [address] [id number] [place] [address] Sep, [facility] [place] [facility] [address] [id number] [place] [address] Sep, [facility] [address] [id number] [place] [address] Aug, [facility] [place] [facility] [address] [id number] [place] [address] Aug, [facility] [place] [facility] [address] [id number] [place] [address] Jul, [facility] [address] [id number] [place] [address] Jul, [facility] [address] [id number] [place] [address] Jun, [facility] [address] [id number] [place] [address] Jun, [facility] [address] [id number] [place] [address] May, [facility] [place] [facility] [address] [id number] [place] [address] May, [facility] [place] [facility] [address] [id number] [place] [address] May, [facility] [place] [facility] [address] [id number] [place] [address] May, [facility] [place] [facility] [address] [id number] [place] [address] Apr, [facility] [place] [facility] [address] [id number] [place] [address] Apr, [facility] [place] [facility] [address] [id number] [place] [address] Apr, [facility] [place] [facility] [address] [facility] [id number] [place] [address] Apr, [facility] [place] [facility] [address] [id number] [place] [address] Apr, [facility] [place] [facility] [address] [id number] [place] [address] Apr, [facility] [place] [facility] [address] [id number] [place] [address] Apr, [facility] [place] [facility] [address] [facility] [id number] [place] [address] Apr, [facility] [place] [facility] [address] [id number], [place] [address] Apr, [facility] [place] [facility] [address] [id number] [place] [address] 15 Mar, 2012 [facility] [place] [facility] [address] [facility] [id number], [place] [address] Mar, [facility] [place] [facility] [address] [id number], [place] [address] Feb, [facility] [place] [facility] [address] [id number], [place] [address] Jan, [facility] [place] [facility] [address] [id number] [place] [address] Jan, [facility] [place] [facility] [address] [facility] [id number], [place] [address] Dec, [facility] [place] [facility] [address] [facility] [id number], [place] [address] Nov, [facility] [place] [facility] [address] [id number] [place] [address] Nov, [facility] [place] [facility] [address] [id number] [place] [address] October, [facility] [place] [facility] [address] [id number] [place] [address] October, [facility] [place] [facility] [address] [id number] [place] [address] Sep, [facility] [place] [facility] [address] [id number] [place] [address] Sep, [facility] [place] [facility] [address] [id number] [place] [address] May, [facility] [place] [facility] [address] [id number] [place] [address] Apr, [facility] [place] [facility] [address] [id number] [place] [address] Apr, [facility] [place] [facility] [address] [id number] [place] [address] Apr, [facility] [place] [facility] [address] [id number] [place] [address] Apr, [facility] [place] [facility] [address] [facility] [id number] [place] [address] Apr, [facility] [place] [facility] [address] [id number] [place] [address] Apr, [facility] [place] [facility] [address] [id number] [place] [address] Apr, [facility] [place] [facility] [address] [id number] [place] [address] Apr, [facility] [place] [facility] [address] [id number] [place] [address] Mar, [facility] [place] [facility] [address] [id number] [place] [address] Mar, [facility] [address] [facility] [id number], [place] [address] Mar, [facility] [address] [facility] [id number], [place] [address] Mar, [facility] [address] [facility] [id number], [place] [address] Mar, [facility] [address] [facility] [id number], [place] [address] Mar, IMMUNIZATIONS No Known Immunizations SOCIAL HISTORY Never Assessed REASON FOR VISIT 7 month f/u. Consult Dr. Rawls;Roberto Carlos RT(R) PLAN OF CARE Activity Details Follow Up prn Reason: VITAL SIGNS MEDICATIONS Unknown Medications RESULTS No Results PROCEDURES No Known procedures INSTRUCTIONS MEDICATIONS ADMINISTERED No Known Medications MEDICAL (GENERAL) HISTORY Type Description Date Medical History HTN Medical History Depression Medical History Arthritis Surgical History Breast lump removed Surgical History Removal of cyst from ovary Surgical History cholecystectomy Surgical History Stomach surgeryx3 Hospitalization History Mental floor at [facility]
--- OUTSIDE RECORDS SUMMARY | 2018-10-27 16:16 | XMS REPORT ---
Author Author MAINOR CONTRERAS [facility] Address [address] [place] [address] Care Team Providers Care Plate Roller Name Role Phone MAINOR CONTRERAS Unavailable PROBLEMS Type Condition ICD9-CM Code [id number] Code Onset Dates Condition Status SNOMED Code Problem Right-sided low back pain without sciatica M54.5 Active 737293735 Problem Arthralgia M25.50 Active 97194564 Problem Insomnia G47.00 Active 591436349 Problem Goiter E04.9 Active 6361639 Problem Presbyopia H52.4 Active 89605708 Problem Multinodular goiter E04.2 Active 812896209 Problem Thyroid nodule E04.1 Active 958281906 Problem Anxiety disorder, unspecified F41.9 Active 077493472 Problem Chronic tension-type headache, intractable G44.221 Active 401666599 Problem Neuropathy G62.9 Active 388088947 Problem Esophageal reflux K21.9 Active 050545304 Problem Depressive disorder F32.9 Active 35580600 Problem Unspecified open-angle glaucoma, stage unspecified H40.10X0 Feb, Active 58885738 Problem Rheumatoid arthritis M06.9 Active 42072595 Problem Other chronic pain G89.29 Active 349066784 Problem Hyperlipidemia, unspecified E78.5 Active 36044261 Problem Nondependent 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 Active 097511583 Problem Hypertension I10 Active 10175041 Problem Unspecified epilepsy without mention of intractable epilepsy G40.909 Active 24141437 Problem Depression F32.9 Active 32129869 ALLERGIES Substance Reaction Event Type Date Status Penicillin V Potassium anaphylaxis Drug Allergy Jun, Active Depakote 500 Mg Tablet,delayed Release (dr/ec) Unknown Non Drug Allergy Jun, Active Hydrocodone And Marijuana Hx of abuse Non Drug Allergy Jun, Active SOCIAL HISTORY No smoking Hx information available PLAN OF CARE VITAL SIGNS Height 62 in 2016-07-01 Weight 243 lbs 2016-07-01 Temperature 98.6 degrees Fahrenheit 2016-07-01 Heart Rate 98 bpm 2016-07-01 Respiratory Rate 26 2016-07-01 Oximetry on room air:98 % 2016-07-01 BMI 44.44 kg/m2 2016-07-01 Blood pressure systolic 126 mmHg 2016-07-01 Blood pressure diastolic 82 mmHg 2016-07-01 MEDICATIONS Medication Instructions Dosage Frequency Start Date End Date Duration Status Omeprazole Magnesium 20 mg 1 capsule by Oral route 2 times per day Mar, Active Levaquin 500 MG Orally Once a day 1 tablet 24h Jun, Jun, 7 days Active Zofran ODT 4 MG Orally every 8 hrs 1 tablet on the tongue and allow to dissolve 8h Jan, Active PredniSONE 20 MG Orally Once a day 2 24h Jun, Jun, 5 days Active Lisinopril-Hydrochlorothiazide 20-25 MG TAKE ONE TABLET BY MOUTH IN THE MORNING Active Cyclobenzaprine HCl 10 mg Orally 2 times a day as needed for neck pain 1 tablet Apr, Active Carafate 1 GM Orally 4 times a day before meals and bedtime 1 tablet Active RESULTS Name Result Date Reference Range Xray : Chest (IN HOUSE) 2016-07-01 PROCEDURES Procedure Date Ordered Related Diagnosis Body Site MEASURE BLOOD OXYGEN LEVEL Jul 01, 2016 CHEST X-RAY Jul 01, 2016 THER/PROPH/DIAG INJ, SC/IM Jul 01, 2016 SOLUMEDROL (UP TO 125 MG) Jul 01, 2016 Office Visit, Est Pt., Level 3 Jul 01, 2016 TORADOL (IM) 60 MG/2ML (UP TO 15 MG) Jul 01, 2016 IMMUNIZATIONS Vaccine Route Administration Date Status TORADOL (IM) 60 MG/2ML (UP TO 15 MG) IM Intramuscular Jul 01, 2016 Administered SOLUMEDROL (UP TO 125 MG) IM Intramuscular Jul 01, 2016 Administered
--- OUTSIDE RECORDS SUMMARY | 2018-10-27 16:16 | XMS REPORT ---
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 Transformation Coach Name Role Phone SURESH ANDRADE CP Unavailable Allergies No Known Allergies Problems Problem Type Condition Code Onset Dates Condition Status Problem Nondependent cannabis abuse, unspecified 305.20 Active Problem Other and unspecified hyperlipidemia 272.4 Active Problem Esophageal reflux 530.81 Active Assessment Other chronic pain G89.29 Active Problem Rheumatoid arthritis, unspecified M06.9 Active Problem Presbyopia H52.4 Active Problem Hypertension 401.9 Active Problem Unspecified epilepsy without mention of intractable epilepsy 345.90 Active Problem Depressive disorder, not elsewhere classified 311 Active Problem Unspecified open-angle glaucoma, stage unspecified H40.10X0 Feb 11, 2015 Active Problem Other chronic pain 338.29 Active Medications Medication Code System Code Instructions Start Date End Date Status Dosage tramadol NDC 0 50 mg August 19, 2014 take 2 tablet by Oral route every 8 hours as needed PRN pain Results No Known Results Summary Purpose [employer] Submission
[2018-10-27] MEDS ORDERED: FLUT9.9S NS (16:17)
--- NOTE | 2018-10-27 16:17 | NUR ---
SPOKE WITH THE PATIENT ABOUT HER MEDICATIONS. SHE LISTED WHAT HE IS TAKING AND I VERIF[facility] DAT[facility] FILLED: 09-18-18 LISINOPRIL HCTZ 20-25 DAILY #90 09-14-18 OMEPRAZOL2 20MG DAILY #90 08-10-18 ZOFRAN ODT 4MG 1 Q4-6H PRN #30 07-10-18 LEVOTHYROXINE 50MCG DAILY #90 SHE TAKE IBU PRN, CLARITIN DAILY, AND FLONASE PRN OTC.
--- OUTSIDE RECORDS SUMMARY | 2018-10-27 16:17 | XMS REPORT ---
Author CATIE Chavira Organization [employer] Address Unknown Phone Unavailable Care Team Providers Care Civil Transportation Engineer Name Role Phone CATIE ROGERS CP Unavailable Allergies No Known Allergies Problems Problem Type Condition Code Onset Dates Condition Status Problem Unspecified open-angle glaucoma, stage unspecified H40.10X0 Feb 11, 2015 Active Problem Presbyopia H52.4 Active Medications No Known Medications Results No Known Results Summary Purpose [employer] Submission
--- OUTSIDE RECORDS SUMMARY | 2018-10-27 16:17 | XMS REPORT ---
Author Author SURESH ANDRADE [facility] Address [address] [place] [address] Care Team Providers Care Automotive Product Specialist Name Role Phone SURESH ANDRADE Unavailable PROBLEMS Type Condition ICD9-CM Code PQY26-TL Code Onset Dates Condition Status SNOMED Code Problem Anxiety disorder, unspecified F41.9 Active 554207697 Problem Neuropathy G62.9 Active 756179467 Problem Thyroid nodule E04.1 Active 730253673 Problem Cough R05 Active 81816869 Problem Unspecified epilepsy without mention of intractable epilepsy G40.909 Active 78552188 Problem Carpal tunnel syndrome of left wrist G56.02 Active [id number] Problem Nondependent 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 Active 285117926 Problem Unspecified open-angle glaucoma, stage unspecified H40.10X0 Feb, Active 13542224 Problem Multinodular goiter E04.2 Active 641997576 Problem Chronic tension-type headache, intractable G44.221 Active 692649363 Problem Acquired hypothyroidism E03.9 Active 813936127 Problem Goiter E04.9 Active 3150559 Problem Hyperlipidemia, unspecified E78.5 Active 87592432 Problem Rheumatoid arthritis M06.9 Active 57793715 Problem Other chronic pain G89.29 Active 634612950 Problem Hypertension I10 Active 43424633 Problem Right-sided low back pain without sciatica M54.5 Active 786019205 Problem Depression F32.9 Active 85916655 Problem Esophageal reflux K21.9 Active 230936050 Problem Arthralgia M25.50 Active 96572350 Problem Presbyopia H52.4 Active 66084399 Problem Depressive disorder F32.9 Active 40404106 Problem Insomnia G47.00 Active 307777749 ALLERGIES No Information ENCOUNTERS Encounter Location Date Diagnosis [facility], [place] [address] [facility] [id number], [place] [address] Dec, [place] [address] [place] [id number] [place] [address] Nov, Hyperlipidemia, unspecified E78.5 [place] [address] [address] October, Chest pain, unspecified type R07.9 and Acquired hypothyroidism E03.9 [place] [address] [address] October, Chest pain, unspecified type R07.9 ; Family history of coronary artery disease Z82.49 ; Carpal tunnel syndrome of left wrist G56.02 ; Hypertension I10 ; Esophageal reflux K21.9 ; Arthralgia M25.50 ; Acquired hypothyroidism E03.9 ; Cough R05 ; Nausea R11.0 ; Weight gain R63.5 and BMI 45.0-49.9, adult Z68.[address] [address] Jun, Acquired hypothyroidism E03.9 and Cough R05 [place] [address] [address] May, [address] [address] Feb, Tarsal tunnel syndrome of both lower extremities G57.53 and Neuropathy G62.9 [place] [id number] [place] [address] Dec, Pleuritis R09.1 [place] [address] [address] Nov, [place] [address] [address] October, Arthralgia, unspecified joint M25.50 and Allergy, initial encounter T78.40XA [place] [id number] [place] [address] October, [place] [address] [place] [id number] [place] [address] October, Acute recurrent maxillary sinusitis J01.01 and Arthralgia M25.50 [place] [address] [address] Sep, Pharyngitis due to other organism J02.8 [place] [address] [place] [id number] [place] [address] Aug, Acute nasopharyngitis J00 [place] [address] [address] Aug, Multinodular goiter E04.[address] [address] Aug, Thyroid nodule E04.1 [place] [id number] [place] [address] Jul, Tarsal tunnel syndrome of both lower extremities G57.53 [place] [address] [address] Jun, Pneumonia due to infectious organism, unspecified laterality, unspecified part of lung J18.9 [place] [address] [place] [id number] [place] [address] Jun, Bronchospasm with bronchitis, acute J20.9 [place] [address] [place] [id number] [place] [address] May, Acute non-recurrent frontal sinusitis J01.10 [place] [address] [place] [id number] [place] [address] May, Flat foot [pes planus] (acquired), left foot M21.42 ; Flat foot [pes planus] (acquired), right foot M21.41 and Neuropathy G62.9 [place] [id number] [place] [address] Apr, Chronic tension-type headache, intractable G44.221 ; Right lower quadrant abdominal pain R10.31 ; Cervicalgia M54.2 ; Acute gastritis without hemorrhage, unspecified gastritis type K29.00 and Hypertension I10 [place] [address] [address] Mar, Depression F32.9 and Anxiety disorder, unspecified F41.9 [place] [address] [address] Feb, Depressive disorder F32.9 and Anxiety disorder, unspecified F41.9 [place] [address] [address] Jan, Dysuria R30.0 ; Lower abdominal pain R10.30 ; Acute bilateral low back pain without sciatica M54.5 ; Nausea and vomiting, unspecified intactability, vomiting of unspecified type R11.2 ; Pain in right foot M79.671 and Pain of left foot M79.672 [place] [address] [address] Dec, Urinary tract infection, site not specified N39.0 [place] [address] [address] Dec, [place] [address] [address] Nov, [place] [address] [address] Nov, Dysuria R30.0 [place] [address] [address] Nov, Dysuria R30.0 and Acute cystitis with hematuria N30.01 [place] [address] [address] October, Nausea R11.0 [place] [address] [address] October, Thyroid nodule E04.1 ; Carpal tunnel syndrome, left upper limb G56.02 ; Carpal tunnel syndrome, right upper limb G56.01 and Constipation, unspecified constipation type K59.00 [place] [address] [address] October, [place] [address] [address] October, Thyroid nodule E04.1 [place] [address] [address] October, Cold thyroid nodule E04.1 [place] [address] [address] October, [place] [address] [address] Sep, Thyroid nodule E04.1 [place] [address] [address] Sep, Thyroid nodule E04.1 [place] [address] [address] Sep, Thyroid nodule E04.1 ; Hypertension I10 ; Esophageal reflux K21.9 and Hyperlipidemia, unspecified E78.5 [place] [address] [address] Aug, Other chronic pain G89.29 ; Sinusitis J32.9 and Hypertension I10 [place] [address] [place] [id number] [place] [address] Jul, [place] [address] [address] Jul, [place] [address] [address] Jul, Insomnia G47.00 and Arthralgia M25.50 [place] [address] [address] Jul, Depressive disorder F32.9 and Anxiety disorder, unspecified F41.9 [facility], [place] [address] [place] [id number] [place] [address] May, Right-sided low back pain without sciatica M54.5 and Depression F32.9 [facility] [place] [address] [place] [id number] [place] [address] Apr, Hematuria R31.9 [facility] [place] [address] [address] Mar, Other chronic pain G89.29 [place] [address] [address] Mar, Other chronic pain G89.29 [place] [address] [place] [id number] [place] [address] Feb, [facility] [place] [address] [address] Feb, Other chronic pain 338.29 ; Dysuria 788.1 ; UTI (urinary tract infection) 599.0 ; Insomnia 780.52 ; Hot flashes 627.2 and Hypertension 401.9 [place] [address] [place] [id number] [place] [address] Feb, Dysuria 788.1 [place] [address] [place] [id number] [place] [address] Feb, [facility] [place] [address] [place] [id number] [place] [address] Jan, [facility] [place] [address] [place] [id number] [place] [address] Jan, [place] [address] [place] [id number] [place] [address] Jan, Fibromyalgia 729.1 ; Hypertension 401.9 ; Dysthymia 300.4 and Hot flashes 627.2 [facility] [place] [address] [place] [id number] [place] [address] Dec, [facility] [address] [id number] [place] [address] Dec, [facility] [address] [id number] [place] [address] Dec, [facility] [address] [facility] [id number] [place] [address] Nov, Other chronic pain 338.29 [facility] [address] [id number] [place] [address] October, [facility] [address] [id number] [place] [address] October, [facility] [address] [id number] [place] [address] Sep, [facility] [address] [facility] [id number] [place] [address] Sep, [facility] [address] [id number] [place] [address] Aug, [facility] [address] [id number] [place] [address] Aug, [facility] [address] [facility] [id number] [place] [address] Aug, [facility] [address] [id number] [place] [address] Aug, [facility] [address] [id number] [place] [address] Aug, [facility] [address] [id number] [place] [address] Aug, [facility] [place] [facility] [address] [id number] [place] [address] Aug, [facility] [address] [id number] [place] [address] Aug, [facility] [place] [facility] [address] [id number] [place] [address] Aug, [facility] [place] [facility] [address] [id number] [place] [address] Aug, [facility] [place] [facility] [address] [id number] [place] [address] Aug, [facility] [place] [facility] [address] [id number] [place] [address] Aug, [facility] [place] [facility] [address] [id number] [place] [address] Aug, [facility] [place] [facility] [address] [id number] [place] [address] Aug, [facility] [place] [facility] [address] [facility] [id number] [place] [address] Jul, [facility] [place] [facility] [address] [id number] [place] [address] Jul, [facility] [place] [facility] [address] [id number] [place] [address] Jul, [facility] [place] [facility] [address] [facility] [id number] [place] [address] Jul, [facility] [place] [facility] [address] [facility] [id number] [place] [address] Jul, [facility] [place] [facility] [address] [id number], [place] [address] Jul, [facility] [place] [facility] [address] [id number] [place] [address] Jun, [facility] [place] [facility] [address] [id number] [place] [address] Jun, [facility] [place] [facility] [address] [facility] [id number] [place] [address] Jun, [facility] [place] [facility] [address] [id number], [place] [address] Jun, [facility] [place] [facility] [address] [id number] [place] [address] May, [facility] [place] [facility] [address] [id number] [place] [address] May, [facility] [place] [facility] [address] [facility] [id number] [place] [address] May, [facility] [place] [facility] [address] [id number] [place] [address] May, [facility] [place] [facility] [address] [facility] [id number] [place] [address] May, [facility] [place] [facility] [address] [id number] [place] [address] May, [facility] [place] [facility] [address] [place] [id number] [place] [address] May, [facility] [place] [facility] [address] [id number] [place] [address] May, [facility] [place] [facility] [address] [facility] [id number] [place] [address] May, [facility] [place] [facility] [address] [facility] [id number] [place] [address] May, [facility] [place] [facility] [address] [id number] [place] [address] Apr, [facility] [place] [facility] [address] [id number], [place] [address] Apr, [facility] [place] [facility] [address] [id number] [place] [address] Apr, [facility] [place] [facility] [address] [facility] [id number] [place] [address] Apr, [facility] [place] [facility] [address] [facility] [id number] [place] [address] Apr, [facility] [place] [facility] [address] [id number] [place] [address] 08 Apr, 2014 [facility] [place] [facility] [address] [id number] [place] [address] 08 Apr, 2014 [facility] [place] [facility] [address] [id number] [place] [address] Apr, [facility] [place] [facility] [address] [id number] [place] [address] Apr, [facility] [place] [facility] [address] [id number] [place] [address] Mar, [facility] [place] [facility] [address] [id number] [place] [address] Mar, [facility] [place] [facility] [address] [id number] [place] [address] Mar, [facility] [place] [facility] [address] [id number] [place] [address] Mar, [facility] [place] [facility] [address] [id number] [place] [address] Mar, [facility] [place] [facility] [address] [id number] [place] [address] Mar, [facility] [place] [facility] [address] [id number] [place] [address] Mar, [facility] [place] [facility] [address] [id number] [place] [address] Mar, [facility] [place] [facility] [address] [id number] [place] [address] 30 Feb, 2014 [facility] [place] [facility] [address] [id number] [place] [address] 30 Feb, 2014 [facility] [place] [facility] [address] [id number] [place] [address] 24 Feb, 2014 [facility] [place] [facility] [address] [id number] [place] [address] 24 Feb, 2013 [facility] [place] [facility] [address] [id number] [place] [address] Feb, 2013 [facility] [place] [facility] [address] [id number] [place] [address] Feb, 2013 [facility] [place] [facility] [address] [id number] [place] [address] Feb, 2013 [facility] [place] [facility] [address] [id number] [place] [address] 10 Feb, 2013 [facility] [place] [facility] [address] [id number] [place] [address] Feb, 2013 [facility] [place] [facility] [address] [id number] [place] [address] Feb, 2013 [facility] [place] [facility] [address] [id number] [place] [address] Feb, 2013 [facility] [place] [facility] [address] [id number] [place] [address] Feb, 2013 [facility] [place] [facility] [address] [id number] [place] [address] Feb, [facility] [place] [facility] [address] [id number] [place] [address] Feb, [facility] [place] [facility] [address] [id number] [place] [address] Jan, [facility] [place] [facility] [address] [id number] [place] [address] Jan, [facility] [place] [facility] [address] [id number] [place] [address] Dec, [facility] [place] [facility] [address] [id number] [place] [address] Dec, [facility] [place] [facility] [address] [id number] [place] [address] Dec, [facility] [place] [facility] [address] [id number] [place] [address] Dec, 2013 [facility] [place] [facility] [address] [id number] [place] [address] Dec, 2013 [facility] [place] [facility] [address] [id number] [place] [address] Dec, 2013 [facility] [place] [facility] [address] [id number] [place] [address] Dec, 2013 [facility] [place] [facility] [address] [id number] [place] [address] Dec, 2013 [facility] [place] [facility] [address] [id number] [place] [address] Dec, 2013 [facility] [place] [facility] [address] [id number] [place] [address] Dec, 2013 [facility] [place] [facility] [address] [id number] [place] [address] Dec, 2013 [facility] [place] [facility] [address] [id number] [place] [address] Dec, 2013 [facility] [place] [facility] [address] [id number] [place] [address] Dec, 2013 [facility] [place] [facility] [address] [id number] [place] [address] Dec, [facility] [place] [facility] [address] [id number] [place] [address] Dec, 2013 [facility] [place] [facility] [address] [id number] [place] [address] Dec, 2013 [facility] [place] [facility] [address] [id number] [place] [address] Dec, [facility] [place] [facility] [address] [id number] [place] [address] Dec, [facility] [place] [facility] [address] [id number] [place] [address] Dec2013 [facility] [place] [facility] [address] [id number] [place] [address] Nov, [facility] [place] [facility] [address] [id number] [place] [address] Nov, [facility] [place] [facility] [address] [id number] [place] [address] Nov, [facility] [place] [facility] [address] [id number] [place] [address] Nov, [facility] [place] [facility] [address] [id number] [place] [address] Nov, [facility] [place] [facility] [address] [id number] [place] [address] Nov, [facility] [place] [facility] [address] [id number] [place] [address] Nov, [facility] [place] [facility] [address] [id number] [place] [address] Nov, [facility] [place] [facility] [address] [id number] [place] [address] Nov, [facility] [place] [facility] [address] [id number] [place] [address] October, [facility] [place] [facility] [address] [id number] [place] [address] October, [facility] [place] [facility] [address] [id number] [place] [address] October, [facility] [place] [facility] [address] [id number] [place] [address] October, [facility] [place] [facility] [address] [id number] [place] [address] October, [facility] [place] [facility] [address] [id number] [place] [address] October, [facility] [place] [facility] [address] [id number] [place] [address] October, [facility] [place] [facility] [address] [id number] [place] [address] October, [facility] [place] [facility] [address] [id number] [place] [address] Sep, [facility] [place] [facility] [address] [id number] [place] [address] Sep, [facility] [place] [facility] [address] [id number] [place] [address] Sep, [facility] [place] [facility] [address] [id number] [place] [address] Sep, [facility] [place] [facility] [address] [id number] [place] [address] Sep, [facility] [place] [facility] [address] [id number] [place] [address] Sep, [facility] [place] [facility] [address] [id number] [place] [address] Sep, [facility] [place] [facility] [address] [id number] [place] [address] Aug, [facility] [place] [facility] [address] [id number] [place] [address] Aug, [facility] [place] [facility] [address] [id number] [place] [address] Aug, [facility] [place] [facility] [address] [id number] [place] [address] Aug, [facility] [place] [facility] [address] [id number] [place] [address] Aug, [facility] [place] [facility] [address] [id number] [place] [address] Aug, [facility] [place] [facility] [address] [id number] [place] [address] Jul, [facility] [place] [facility] [address] [id number] [place] [address] Jul, [facility] [place] [facility] [address] [id number] [place] [address] Jul, [facility] [place] [facility] [address] [id number] [place] [address] Jul, [facility] [place] [facility] [address] [id number] [place] [address] Jul, [facility] [place] [facility] [address] [id number] [place] [address] Jul, [facility] [place] [facility] [address] [id number] [place] [address] Jun, [facility] [place] [facility] [address] [id number] [place] [address] Jun, [facility] [place] [facility] [address] [id number] [place] [address] Jun, [facility] [place] [facility] [address] [id number] [place] [address] Jun, [facility] [place] [facility] [address] [id number] [place] [address] Jun, [facility] [place] [facility] [address] [id number] [place] [address] Jun, [facility] [place] [facility] [address] [id number] [place] [address] Jun, [facility] [place] [facility] [address] [id number] [place] [address] Jun, [facility] [place] [facility] [address] [id number] [place] [address] Jun, [facility] [place] [facility] [address] [id number] [place] [address] Jun, [facility] [place] [facility] [address] [id number] [place] [address] 14 Jun, 2013 [facility] [address] [id number] [place] [address] 14 Jun, 2013 [facility] [place] [facility] [address] [id number] [place] [address] 14 Jun, 2013 [facility] [address] [id number] [place] [address] 30 May, 2013 [facility] [place] [facility] [address] [id number] [place] [address] 30 May, 2013 [facility] [address] [id number] [place] [address] 30 May, 2013 [facility] [place] [facility] [address] [id number] [place] [address] May, [facility] [place] [facility] [address] [id number] [place] [address] May, [facility] [place] [facility] [address] [id number] [place] [address] May, [facility] [place] [facility] [address] [id number] [place] [address] May, [facility] [place] [facility] [address] [id number] [place] [address] May, [facility] [place] [facility] [address] [id number] [place] [address] 12 May, 2013 [facility] [place] [facility] [address] [id number], [place] [address] 11 May, 2013 [facility] [place] [facility] [address] [id number] [place] [address] 11 May, 2013 [facility] [place] [facility] [address] [id number] [place] [address] 10 May, 2013 [facility] [place] [facility] [address] [id number] [place] [address] 10 May, 2013 [facility] [place] [facility] [address] [id number] [place] [address] 09 May, 2012 [facility] [address] [id number] [place] [address] 09 May, 2012 [facility] [place] [facility] [address] [id number] [place] [address] 08 May, 2012 [facility] [address] [id number] [place] [address] 07 May, 2012 [facility] [place] [facility] [address] [id number] [place] [address] 06 May, 2012 [facility] [address] [id number] [place] [address] May, 2012 [facility] [address] [id number] [place] [address] May, [facility] [address] [id number] [place] [address] May, 2012 [facility] [place] [facility] [address] [id number] [place] [address] Apr, [facility] [place] [facility] [address] [address] [id number] [place] [address] Apr, [facility] [address] [facility] [id number] [place] [address] Apr, [facility] [place] [facility] [address] [id number] [place] [address] Apr, [facility] [place] [facility] [address] [id number], [place] [address] 08 Mar, 2013 [facility] [place] [facility] [address] [id number] [place] [address] 23 Feb, 2013 [facility] [place] [facility] [address] [id number] [place] [address] 16 Sep2012 [facility] [place] [facility] [address] [id number], [place] [address] 13 Feb, 2013 [facility] [place] [facility] [address] [id number] [place] [address] Feb, [facility] [place] [facility] [address] [id number] [place] [address] Feb, [facility] [place] [facility] [address] [id number] [place] [address] Feb, [facility] [place] [facility] [address] [id number] [place] [address] Jan, [facility] [address] [id number] [place] [address] Jan, [facility] [place] [facility] [address] [id number] [place] [address] Jan, [facility] [address] [id number] [place] [address] Dec, [facility] [address] [id number] [place] [address] Dec, [facility] [address] [id number] [place] [address] Dec, [facility] [place] [facility] [address] [id number] [place] [address] Dec, [facility] [place] [facility] [address] [id number] [place] [address] Dec, [facility] [place] [facility] [address] [id number] [place] [address] Nov, [facility] [place] [facility] [address] [id number] [place] [address] Nov, [facility] [place] [facility] [address] [id number] [place] [address] Nov, [facility] [place] [facility] [address] [id number] [place] [address] Nov, [facility] [place] [facility] [address] [id number] [place] [address] Nov, [facility] [place] [facility] [address] [id number] [place] [address] Nov, [facility] [place] [facility] [address] [id number] [place] [address] Nov, [facility] [place] [facility] [address] [id number] [place] [address] Nov, [facility] [place] [facility] [address] [id number] [place] [address] Nov, [facility] [place] [facility] [address] [id number] [place] [address] Nov, [facility] [place] [facility] [address] [id number] [place] [address] October, [facility] [place] [facility] [address] [id number] [place] [address] October, [facility] [place] [facility] [address] [id number] [place] [address] Sep, [facility] [place] [facility] [address] [id number] [place] [address] Sep, [facility] [place] [facility] [address] [id number] [place] [address] Sep, [facility] [place] [facility] [address] [id number] [place] [address] Sep, [facility] [place] [facility] [address] [id number] [place] [address] Sep, [facility] [place] [facility] [address] [id number] [place] [address] Aug, [facility] [place] [facility] [address] [id number] [place] [address] Aug, [facility] [place] [facility] [address] [id number] [place] [address] Jul, [facility] [place] [facility] [address] [id number] [place] [address] Jul, [facility] [address] [id number] [place] [address] Jun, [facility] [place] [facility] [address] [id number] [place] [address] Jun, [facility] [address] [id number] [place] [address] May, [facility] [place] [facility] [address] [id number] [place] [address] May, [facility] [address] [id number] [place] [address] May, [facility] [place] [facility] [address] [id number] [place] [address] May, [facility] [place] [facility] [address] [id number] [place] [address] Apr, [facility] [address] [id number] [place] [address] Apr, [facility] [place] [facility] [address] [id number] [place] [address] Apr, [facility] [place] [facility] [address] [id number] [place] [address] Apr, [facility] [place] [facility] [address] [id number] [place] [address] Apr, [facility] [place] [facility] [address] [id number] [place] [address] Apr, [facility] [place] [facility] [address] [id number] [place] [address] Apr, [facility] [place] [facility] [address] [id number] [place] [address] Apr, [facility] [place] [facility] [address] [id number] [place] [address] Apr, [facility] [place] [facility] [address] [id number] [place] [address] Mar, [facility] [place] [facility] [address] [id number] [place] [address] Mar, [facility] [place] [facility] [address] [id number] [place] [address] Feb, [facility] [place] [facility] [address] [id number] [place] [address] Jan, [facility] [place] [facility] [address] [id number] [place] [address] Jan, [facility] [place] [facility] [address] [id number] [place] [address] Dec, [facility] [place] [facility] [address] [id number] [place] [address] Nov, [facility] [place] [facility] [address] [id number] [place] [address] Nov, [facility] [place] [facility] [address] [id number] [place] [address] October, [facility] [place] [facility] [address] [id number] [place] [address] October, [facility] [place] [facility] [address] [id number] [place] [address] Sep, [facility] [place] [facility] [address] [id number], [place] [address] Sep, [facility] [place] [facility] [address] [id number] [place] [address] May, [facility] [place] [facility] [address] [id number] [place] [address] Apr, [facility] [place] [facility] [address] [id number] [place] [address] Apr, [facility] [place] [facility] [address] [address] 15 Apr, 2011 [facility] [place] [address] [facility] [id number], [place] [address] 15 Apr, 2011 [facility] [place] [address] [facility] [id number], [place] [address] 15 Apr, 2011 [facility] [place] [address], [place] [address] Apr, [facility] [place] [id number], [place] [address] Apr, [facility] [place] [id number], [place] [address] Apr, [facility] [place] [address], [place] [address] Mar, [facility] [place] [id number], [place] [address] Mar, [facility] [place] [id number], [place] [address] Mar, [facility] [place] [id number], [place] [address] Mar, [facility] [place] [address], [place] [address] Mar, [facility] [place] [address] [id number] [address] Mar, IMMUNIZATIONS No Known Immunizations SOCIAL HISTORY Never Assessed REASON FOR VISIT rx denied PLAN OF CARE VITAL SIGNS MEDICATIONS Unknown Medications RESULTS No Results PROCEDURES No Known procedures INSTRUCTIONS MEDICATIONS ADMINISTERED No Known Medications MEDICAL (GENERAL) HISTORY Type Description Date Medical History HTN Medical History Depression Medical History Arthritis Surgical History Breast lump removed Surgical History Removal of cyst from ovary Surgical History cholecystectomy Surgical History Stomach surgeryx3 Hospitalization History [facility] floor at [facility]
--- OUTSIDE RECORDS SUMMARY | 2018-10-27 16:18 | XMS REPORT ---
Author Author ERIC BINGHAM [facility] Address [address] [place] [address] Care Team Providers Care Chief Engineer'S Helper Name Role Phone ERIC BINGHAM Unavailable PROBLEMS Type Condition ICD9-CM Code AOD07-CA Code Onset Dates Condition Status SNOMED Code Problem Right-sided low back pain without sciatica M54.5 Active 891630682 Problem Arthralgia M25.50 Active 21395748 Problem Insomnia G47.00 Active 793486037 Problem Goiter E04.9 Active 0914738 Problem Presbyopia H52.4 Active 83053450 Problem Multinodular goiter E04.2 Active 893675515 Problem Thyroid nodule E04.1 Active 597299136 Problem Anxiety disorder, unspecified F41.9 Active 718037793 Problem Chronic tension-type headache, intractable G44.221 Active 570647945 Problem Neuropathy G62.9 Active 343933356 Problem Esophageal reflux K21.9 Active 269277814 Problem Depressive disorder F32.9 Active 34622745 Problem Unspecified open-angle glaucoma, stage unspecified H40.10X0 Feb, Active 51200184 Problem Rheumatoid arthritis M06.9 Active 64081803 Problem Other chronic pain G89.29 Active 119781234 Problem Hyperlipidemia, unspecified E78.5 Active 70707633 Problem Nondependent 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 Active 070468775 Problem Hypertension I10 Active 68094983 Problem Unspecified epilepsy without mention of intractable epilepsy G40.909 Active 22874204 Problem Depression F32.9 Active 17886461 ALLERGIES No Information SOCIAL HISTORY Never Assessed PLAN OF CARE VITAL SIGNS MEDICATIONS Unknown [...]
--- OUTSIDE RECORDS SUMMARY | 2018-10-27 16:18 | XMS REPORT ---
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 Botany Technician Name Role Phone SURESH ANDRADE CP Unavailable [...] low back pain without sciatica M54.5 Active Assessment Thyroid nodule E04.1 Active Problem Rheumatoid arthritis M06.9 Active Problem Hypertension I10 Active Problem Unspecified open-angle glaucoma, stage unspecified H40.10X0 Feb 11, 2015 Active Problem 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
--- OUTSIDE RECORDS SUMMARY | 2018-10-27 16:18 | XMS REPORT ---
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 Slip Laster Name Role Phone SURESH ANDRADE CP Unavailable Allergies No Known Allergies Problems Problem Type Condition ICD-9 Code Onset Dates Condition Status Problem Irregular menstrual cycle 626.4 Active Problem Spontaneous ecchymoses 782.7 Active Problem Acute sinusitis, unspecified 461.9 Active Problem Cellulitis and abscess of leg, except foot 682.6 Active Problem Nondependent cannabis abuse, unspecified 305.20 Active Problem Unspecified gastritis and gastroduodenitis without mention of hemorrhage 535.50 Active Problem Esophageal reflux 530.81 Active Problem Acute gastric ulcer without mention of hemorrhage, perforation, or obstruction 531.30 Active Problem Benign neoplasm of colon 211.3 Active Problem Depressive disorder, not elsewhere classified 311 Active Problem Screening for malignant neoplasm of the cervix V76.2 Active Problem Pain in joint, lower leg 719.46 Active Problem Unspecified breast screening V76.10 Active Problem Diverticulitis of colon (without mention of hemorrhage) 562.11 Active Problem Screening examination for venereal disease V74.5 Active Problem Abdominal pain, other specified site 789.09 Active Problem Family history of other cardiovascular diseases V17.49 Active Problem Other dyspnea and respiratory abnormalities 786.09 Active Problem Scarlet fever 034.1 Active Problem Benign neoplasm of other and unspecified site of the digestive system 211.9 Active Problem Hypertension 401.9 Active Problem Carpal tunnel syndrome 354.0 Active Problem Other chronic pain 338.29 Active Problem Unspecified epilepsy without mention of intractable epilepsy 345.90 Active Problem Other malaise and fatigue 780.79 Active Problem Dysuria 788.1 Active Problem Unspecified symptom associated with female genital organs 625.9 Active Assessment Dysuria 788.1 Active Problem Insomnia, unspecified 780.52 Active Problem Painful respiration 786.52 Active Problem Other and unspecified hyperlipidemia 272.4 Active Problem Urinary tract infection, site not specified 599.0 Active Problem Nondependent opioid abuse, unspecified 305.50 Active Problem Pain in joint, site unspecified 719.40 Active Problem Anxiety state, unspecified 300.00 Active Medications No Known Medications Results No Known Results Summary Purpose [employer] Submission
--- OUTSIDE RECORDS SUMMARY | 2018-10-27 16:18 | XMS REPORT ---
Author Author GARRISON POLK Organization [employer] Address Unknown Phone Unavailable Care Team Providers Care Serology Technician Name Role Phone GARRISON POLK CP Unavailable Allergies No Known Allergies Problems Problem Type Condition Code Onset Dates Condition Status Problem Esophageal reflux K21.9 Active Problem Depressive disorder F32.9 Active Problem Hyperlipidemia, unspecified E78.5 Active Problem Insomnia G47.00 Active Problem Arthralgia M25.50 Active Problem Anxiety disorder, unspecified F41.9 Active Problem Other chronic pain G89.29 Active Problem Unspecified epilepsy without mention of intractable epilepsy G40.909 Active Problem Right-sided low back pain without sciatica M54.5 Active Problem Depression F32.9 Active Assessment Anxiety disorder, unspecified F41.9 Active Problem Presbyopia H52.4 Active Problem Rheumatoid arthritis M06.9 Active Assessment Depressive disorder F32.9 Active Problem Hypertension I10 Active Problem Unspecified open-angle glaucoma, stage unspecified H40.10X0 Feb 11, 2015 Active Problem Nondependent 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 Active Medications No Known Medications Procedures Procedure Coding System Code Date Psychotherapy, patient &/family, 30 minutes, established patient CPT-4 59228 Jul 23, 2015 Results No Known Results Summary Purpose [employer] Submission
--- OUTSIDE RECORDS SUMMARY | 2018-10-27 16:18 | XMS REPORT ---
Author Author SURESH ANDRADE [facility] [employer] Address Unknown Phone Unavailable Care Team Providers Care System Support Administrator Name Role Phone SURESH ANDRADE CP Unavailable Allergies, Adverse Reactions, Alerts Substance Reaction Event Type Depakote 500 Mg Tablet,delayed Release (dr/ec) Info Not Available Non Drug Allergy Hydrocodone And Marijuana Hx of abuse Non Drug Allergy Problems Problem Type Condition Code Onset Dates [...] M54.5 Active Problem Depression F32.9 Active Assessment Arthralgia M25.50 Active Problem Presbyopia H52.4 Active Problem Rheumatoid arthritis M06.9 Active Assessment Insomnia G47.00 Active Problem Hypertension I10 Active Problem Unspecified open-angle glaucoma, stage unspecified H40.10X0 Feb 11, 2015 Active Problem Nondependent 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 Active Medications Medication Code System Code Instructions Start Date End Date Status Dosage Tylenol/Codeine #3 [facility] [address]-60 300-30 MG Orally every 6 hrs Jul 23, 2015 1 tablet as needed Cymbalta [facility] [address]-18 60 MG August 19, 2014 1 capsule by Oral route 1 time per day Lisinopril-Hydrochlorothiazide [facility] 20472049350 20-25 MG TAKE ONE TABLET BY MOUTH IN THE MORNING Ambien [facility] [address]-12 5 MG Orally Once a day Jul 23, 2015 1 tablet at bedtime Omeprazole [facility] 15528027867 20 MG TAKE ONE CAPSULE BY MOUTH TWICE DAILY Procedures Procedure Coding System Code Date Office Visit, Est Pt., Level 3 CPT-4 74783 Jul 23, 2015 Vital Signs Date/Time: Jul 23, 2015 Temperature 97.4 F Weight 227.5 lbs Height 62 in BMI 41.61 Index Blood Pressure Diastolic 88 mmHg Blood Pressure Systolic 136 mmHg Cardiac Monitoring Heart Rate 82 bpm Results No Known Results Summary Purpose [employer] Submission
--- OUTSIDE RECORDS SUMMARY | 2018-10-27 16:18 | XMS REPORT ---
Author Author SURESH ANDRADE [facility] [place] e[employer] Address Unknown Phone Unavailable Care Team Providers Care Waste Treatment Operator Name Role Phone SURESH ANDRADE CP Unavailable Allergies, Adverse Reactions, Alerts Substance Reaction Event Type Depakote 500 Mg Tablet,delayed Release (dr/ec) Info Not Available Non Drug Allergy Hydrocodone And Marijuana Hx of abuse Non Drug Allergy Problems Problem Type Condition Code Onset Dates Condition Status Problem Rheumatoid arthritis M06.9 Active Problem Nondependent 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 Active Problem Hypertension I10 Active Problem Depression F32.9 Active Problem Other chronic pain G89.29 Active Problem Right-sided low back pain without sciatica M54.5 Active Problem Hyperlipidemia, unspecified E78.5 Active Problem Esophageal reflux K21.9 Active Problem Unspecified epilepsy without mention of intractable epilepsy G40.909 Active Problem Depressive disorder F32.9 Active Assessment Depression F32.9 Active Assessment Right-sided low back pain without sciatica M54.5 Active Problem Unspecified open-angle glaucoma, stage unspecified H40.10X0 Feb 11, 2015 Active Problem Presbyopia H52.4 Active Medications Medication Code System Code Instructions Start Date End Date Status Dosage Cymbalta [facility] [address]-73 60 MG August 19, 2014 1 capsule by Oral route 1 time per day PredniSONE [facility] [address]-34 20 MG Orally Once a day Jun 04, 2015 Jun 09, 2015 1 tab Tizanidine HCl [facility] [address]-90 4 MG Orally every 8 hrs Jun 04, 2015 1 tablet as needed Hydrocodone-Acetaminophen [facility] [address]-79 10-325 MG Orally every 6 hrs prn pain Jun 04, 2015 1 tablet as needed Procedures Procedure Coding System Code Date Office Visit, Est Pt., Level 3 CPT-4 31199 Jun 04, 2015 Vital Signs Date/Time: Jun 04, 2015 Temperature 97.7 F Weight 230.9 lbs Height 62 in BMI 42.23 Index Blood Pressure Diastolic 90 mmHg Blood Pressure Systolic 130 mmHg Cardiac Monitoring Heart Rate 72 bpm Results No Known Results Summary Purpose [employer] Submission
--- OUTSIDE RECORDS SUMMARY | 2018-10-27 16:18 | XMS REPORT ---
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 Frame Operator Name Role Phone SURESH ANDRADE CP [...]
--- OUTSIDE RECORDS SUMMARY | 2018-10-27 16:18 | XMS REPORT ---
Author Author GARRISON POLK Organization [employer] Address Unknown Phone Unavailable Care Team Providers Care Universal Grinder Set Up Operator Name Role Phone GARRISON POLK CP Unavailable [...] back pain without sciatica M54.5 Active Assessment Anxiety disorder, unspecified F41.9 Active Assessment Depression F32.9 Active Problem Rheumatoid arthritis M06.9 Active Problem Hypertension I10 Active Problem Unspecified open-angle glaucoma, stage unspecified H40.10X0 Feb 11, 2015 Active Problem Nondependent 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 Active Problem Presbyopia H52.4 Active Problem Esophageal reflux K21.9 Active Medications No Known Medications Procedures Procedure Coding System Code Date Psychotherapy, patient &/family, 30 minutes, established patient CPT-4 80677 Apr 02, 2016 Results No Known Results Summary Purpose [employer] Submission
--- OUTSIDE RECORDS SUMMARY | 2018-10-27 16:18 | XMS REPORT ---
Author Author ERIC BINGHAM [facility] Address [address] [place] [address] Care Team Providers Care Batch Freezer Operator Name Role Phone ERIC BINGHAM Unavailable PROBLEMS Type Condition ICD9-CM Code HDX36-AF Code Onset Dates Condition Status SNOMED Code Problem Right-sided low back pain without sciatica M54.5 Active 550848513 Problem Arthralgia M25.50 Active 78812550 Problem Insomnia G47.00 Active 447896800 Problem Goiter E04.9 Active 7414330 Problem Presbyopia H52.4 Active 00284580 Problem Multinodular goiter E04.2 Active 619829310 Problem Thyroid nodule E04.1 Active 090463491 Problem Anxiety disorder, unspecified F41.9 Active 019336244 Problem Chronic tension-type headache, intractable G44.221 Active 087205209 Problem Neuropathy G62.9 Active 217288836 Problem Esophageal reflux K21.9 Active 032014352 Problem Depressive disorder F32.9 Active 34173025 Problem Unspecified open-angle glaucoma, stage unspecified H40.10X0 Feb, Active 11372955 Problem Rheumatoid arthritis M06.9 Active 70443014 Problem Other chronic pain G89.29 Active 111741416 Problem Hyperlipidemia, unspecified E78.5 Active 30820834 Problem Nondependent 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 Active 680139855 Problem Hypertension I10 Active 98034890 Problem Unspecified epilepsy without mention of intractable epilepsy G40.909 Active 17741931 Problem Depression F32.9 Active 11473441 ALLERGIES No Information SOCIAL HISTORY Never Assessed PLAN OF CARE VITAL SIGNS MEDICATIONS Medication Instructions Dosage Frequency Start Date End Date Duration Status Mobic 15 mg Orally Once a day, pc 1 tablet October, Feb, 30 day(s) Active Claritin 10 mg Orally Once a day 1 tablet 24h October, Feb, 30 day(s) Active RESULTS No Results PROCEDURES No Known procedures IMMUNIZATIONS No Known Immunizations MEDICAL (GENERAL) HISTORY Type Description Date Medical History HTN Medical History Depression Medical History Arthritis Surgical History Breast lump removed Surgical History Removal of cyst from ovary Surgical History cholecystectomy Surgical History Stomach surgeryx3 Hospitalization History Mental floor at [facility]
--- OUTSIDE RECORDS SUMMARY | 2018-10-27 16:18 | XMS REPORT ---
Author Author SURESH ANDRADE [facility] eClinicalWorks Address Unknown Phone Unavailable Care Team Providers Care Snuff Grinder And Screener Name Role Phone SURESH ANDRADE CP Unavailable Allergies, Adverse Reactions, Alerts Substance Reaction Event Type Penicillamine Info Not Available Drug Allergy Depakote 500 Mg Tablet,delayed Release (dr/ec) Info [...] back pain without sciatica M54.5 Active Assessment Hypertension I10 Active Assessment Thyroid nodule E04.1 Active Assessment Hyperlipidemia, unspecified E78.5 Active Assessment Esophageal reflux K21.9 Active Problem Rheumatoid arthritis M06.9 Active Problem Hypertension I10 Active Problem Unspecified open-angle glaucoma, stage unspecified H40.10X0 Feb 11, 2015 Active Problem Nondependent 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 Active Problem Presbyopia H52.4 Active Problem Esophageal reflux K21.9 Active Medications Medication Code System Code Instructions Start Date End Date Status Dosage Norvasc [facility] [address]-17 10 mg Orally Once a day August 25, 2015 1 tablet Lisinopril-Hydrochlorothiazide [facility] [address]-12 20-25 MG TAKE ONE TABLET BY MOUTH IN THE MORNING Carafate [facility] [address]-78 1 GM Orally 4 times a day before meals and bedtime 1 tablet Omeprazole [facility] [address]-87 20 mg 2 times a day 1 tablet Procedures Procedure Coding System Code Date ASSAY OF FREE THYROXINE CPT-4 03237 September 30, 2015 RASHAD CALLAWAY* CPT-4 44759 September 30, 2015 ASSAY THYROID STIM HORMONE CPT-4 76380 September 30, 2015 Office Visit, Est Pt., Level 3 CPT-4 94691 September 30, 2015 Vital Signs Date/Time: September 30, 2015 Temperature 98.6 F Weight 235.4 lbs Height 62 in BMI 43.05 Index Blood Pressure Diastolic 100 mmHg Blood Pressure Systolic 144 mmHg Cardiac Monitoring Heart Rate 88 bpm Results No Known Results Summary Purpose eClinicalWorks Submission
--- OUTSIDE RECORDS SUMMARY | 2018-10-27 16:19 | XMS REPORT ---
Author Author ERIC BINGHAM [facility] Address [address] [place] [address] Care Team Providers Care Floor Cleaner Name Role Phone ERIC BINGHAM Unavailable PROBLEMS Type Condition ICD9-CM Code [id number] Code Onset Dates Condition Status SNOMED Code Problem Right-sided low back pain without sciatica M54.5 Active 699636466 Problem Arthralgia M25.50 Active 00167462 Problem Insomnia G47.00 Active 999560257 Problem Goiter E04.9 Active 1408341 Problem Presbyopia H52.4 Active 90222064 Problem Multinodular goiter E04.2 Active 979092023 Problem Thyroid nodule E04.1 Active 384650040 Problem Anxiety disorder, unspecified F41.9 Active 591083300 Problem Chronic tension-type headache, intractable G44.221 Active 239583381 Problem Neuropathy G62.9 Active 801068741 Problem Esophageal reflux K21.9 Active 184955703 Problem Depressive disorder F32.9 Active 87130294 Problem Unspecified open-angle glaucoma, stage unspecified H40.10X0 Feb, Active 54201820 Problem Rheumatoid arthritis M06.9 Active 22880609 Problem Other chronic pain G89.29 Active 412038759 Problem Hyperlipidemia, unspecified E78.5 Active 57374215 Problem Nondependent 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 Active 780665134 Problem Hypertension I10 Active 39238367 Problem Unspecified epilepsy without mention of intractable epilepsy G40.909 Active 09893352 Problem Depression F32.9 Active 13849830 ALLERGIES Substance Reaction Event Type Date Status Penicillin V Potassium anaphylaxis Drug Allergy October, Active SOCIAL HISTORY Never Assessed PLAN OF CARE Activity Details Follow Up prn Reason: VITAL SIGNS Height 62 in 2016-11-02 Weight 247.6 lbs 2016-11-02 Temperature 98.0 degrees Fahrenheit 2016-11-02 Heart Rate 80 bpm 2016-11-02 Respiratory Rate 20 2016-11-02 BMI 45.28 kg/m2 2016-11-02 Blood pressure systolic 144 mmHg 2016-11-02 Blood pressure diastolic 92 mmHg 2016-11-02 MEDICATIONS Medication Instructions Dosage Frequency Start Date End Date Duration Status Carafate 1 GM Orally 4 times a day before meals and bedtime 1 tablet Active Levothyroxine Sodium 50 MCG Orally Once a day 1 tablet on an empty stomach in the morning 24h Aug, 30 day(s) Active Doxycycline Hyclate 100 mg Orally every 12 hrs 1 capsule 12h October, October, 07 days Active Zofran ODT 4 MG Orally every 8 hrs 1 tablet on the tongue and allow to dissolve 8h Jan, Active Lisinopril-Hydrochlorothiazide 20-25 MG TAKE ONE TABLET BY MOUTH IN THE MORNING Active Omeprazole Magnesium 20 mg 1 capsule by Oral route 2 times per day Mar, 30 Active RESULTS Name Result Date Reference Range ESR/SED RATE 2016-11-02 [facility]-32 PROCEDURES Procedure Date Ordered Result Body Site RHEUMATOID FACTOR, QUANT November 02, 2016 RBC SED RATE, AUTOMATED November 02, 2016 VENIPUNCT, ROUTINE* November 02, 2016 IMMUNIZATIONS No Known Immunizations MEDICAL (GENERAL) HISTORY Type Description Date Medical History HTN Medical History Depression Medical History Arthritis Surgical History Breast lump removed Surgical History Removal of cyst from ovary Surgical History cholecystectomy Surgical History Stomach surgeryx3 Hospitalization History Mental floor at [facility]
--- OUTSIDE RECORDS SUMMARY | 2018-10-27 16:19 | XMS REPORT ---
Author Author WING BETANCOURT Organization eClinicalWorks Address Unknown Phone Unavailable Care Team Providers Care Air Conditioning Unit Tester Name Role Phone WING BETANCOURT CP Unavailable Allergies, Adverse Reactions, Alerts Substance Reaction Event Type Penicillin V Potassium anaphylaxis Drug Allergy Hydrocodone And Marijuana Hx of abuse Non Drug Allergy Depakote 500 Mg Tablet,delayed Release (dr/ec) Info Not Available Non Drug Allergy Problems Problem Type Condition [...] back pain without sciatica M54.5 Active Assessment Urinary tract infection, site not specified N39.0 Active Problem Rheumatoid arthritis M06.9 Active Problem Hypertension I10 Active Problem Unspecified open-angle glaucoma, stage unspecified H40.10X0 Feb 11, 2015 Active Problem Nondependent 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 Active Problem Presbyopia H52.4 Active Problem Esophageal reflux K21.9 Active Medications Medication Code System Code Instructions Start Date End Date Status Dosage Omeprazole Magnesium [facility] [place] [address] 20 mg Apr 11, 2014 1 capsule by Oral route 2 times per day Lisinopril-Hydrochlorothiazide [facility] [place] [address]-82 20-25 MG TAKE ONE TABLET BY MOUTH IN THE MORNING Carafate [facility] [place] [address]-32 1 GM Orally 4 times a day before meals and bedtime 1 tablet Procedures Procedure Coding System Code Date Office Visit, Est Pt., Level 3 CPT-4 54404 January 08, 2016 URINALYSIS, AUTO, W/O SCOPE CPT-4 00838 January 08, 2016 Vital Signs Date/Time: January 08, 2016 Cardiac Monitoring Heart Rate 76 bpm Weight 235.8 lbs Height 62 in BMI 43.12 Index Blood Pressure Diastolic 90 mmHg Blood Pressure Systolic 152 mmHg Results No Known Results Summary Purpose eClinicalWorks Submission
--- OUTSIDE RECORDS SUMMARY | 2018-10-27 16:19 | XMS REPORT ---
Author Author LAUREN RAWLS Organization [facility] Address [address] [place] [address] Care Team Providers Care Power Shovel Operator Name Role Phone LAUREN RAWLS Unavailable PROBLEMS Type Condition ICD9-CM Code [id number] Code Onset Dates Condition Status SNOMED Code Problem Right-sided low back pain without sciatica M54.5 Active 430392521 Problem Arthralgia M25.50 Active 47838368 Problem Insomnia G47.00 Active 422877037 Problem Goiter E04.9 Active 7208052 Problem Presbyopia H52.4 Active 20903534 Problem Multinodular goiter E04.2 Active 461036986 Problem Thyroid nodule E04.1 Active 406947133 Problem Anxiety disorder, unspecified F41.9 Active 083088295 Problem Chronic tension-type headache, intractable G44.221 Active 015939780 Problem Neuropathy G62.9 Active 650539733 Problem Esophageal reflux K21.9 Active 860582108 Problem Depressive disorder F32.9 Active 62954098 Problem Unspecified open-angle glaucoma, stage unspecified H40.10X0 Feb, Active 22915324 Problem Rheumatoid arthritis M06.9 Active 59744559 Problem Other chronic pain G89.29 Active 649963654 Problem Hyperlipidemia, unspecified E78.5 Active 88333938 Problem Nondependent 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 Active 200440331 Problem Hypertension I10 Active 86611025 Problem Unspecified epilepsy without mention of intractable epilepsy G40.909 Active 93291644 Problem Depression F32.9 Active 03852089 ALLERGIES No Information SOCIAL HISTORY Never Assessed PLAN OF CARE Activity Details Follow Up prn Reason: VITAL SIGNS Height 62 in 2016-07-30 Blood pressure systolic 140 mmHg 2016-07-30 Blood pressure diastolic 88 mmHg 2016-07-30 MEDICATIONS Unknown Medications RESULTS No Results PROCEDURES Procedure Date Ordered Result Body Site INJ TENDON SHEATH/LIGAMENT 2016-07-30 N/A INJ TENDON SHEATH/LIGAMENT Jul 30, 2016 DEXAMETHASONE 20MG/5 ML (PER 1 MG) Jul 30, 2016 IMMUNIZATIONS No Known Immunizations MEDICAL (GENERAL) HISTORY Type Description Date Medical History HTN Medical History Depression Medical History Arthritis Surgical History Breast lump removed Surgical History Removal of cyst from ovary Surgical History cholecystectomy Surgical History Stomach surgeryx3 Hospitalization History Mental floor at [facility]
--- OUTSIDE RECORDS SUMMARY | 2018-10-27 16:19 | XMS REPORT ---
Author Author SERAFIN WING Organization [facility] Address [address] [place] [address] Care Team Providers Care Welder Boilermaker Name Role Phone BETANCOURTWING Delcid Unavailable PROBLEMS Type Condition ICD9-CM Code [id number] Code Onset Dates Condition Status SNOMED Code Problem Right-sided low back pain without sciatica M54.5 Active 740389409 Problem Insomnia G47.00 Active 788275566 Problem Arthralgia M25.50 Active 76425948 Problem Goiter E04.9 Active 3318972 Problem Unspecified open-angle glaucoma, stage unspecified H40.10X0 Feb, Active 87744644 Problem Multinodular goiter E04.2 Active 215651922 Problem Thyroid nodule E04.1 Active 120500447 Problem Anxiety disorder, unspecified F41.9 Active 478500655 Problem Chronic tension-type headache, intractable G44.221 Active 929319159 Problem Neuropathy G62.9 Active 359478093 Problem Hypertension I10 Active 70929140 Problem Nondependent 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 Active 069444824 Problem Presbyopia H52.4 Active 20767975 Problem Rheumatoid arthritis M06.9 Active 34202398 Problem Depressive disorder F32.9 Active 54381120 Problem Unspecified epilepsy without mention of intractable epilepsy G40.909 Active 32683883 Problem Esophageal reflux K21.9 Active 619506823 Problem Other chronic pain G89.29 Active 151236834 Problem Hyperlipidemia, unspecified E78.5 Active 95493072 Problem Depression F32.9 Active 81984203 ALLERGIES Substance Reaction Event Type Date Status Penicillin V Potassium anaphylaxis Drug Allergy May, Active Depakote 500 Mg Tablet,delayed Release (dr/ec) Unknown Non Drug Allergy May, Active Hydrocodone And Marijuana Hx of abuse Non Drug Allergy May, Active SOCIAL HISTORY No smoking Hx information available PLAN OF CARE Activity Details Follow Up prn Reason: VITAL SIGNS Height 62 in 2016-06-10 Weight 230 lbs 2016-06-10 Temperature 98.1 degrees Fahrenheit 2016-06-10 Heart Rate 80 bpm 2016-06-10 Respiratory Rate 20 2016-06-10 BMI 42.06 kg/m2 2016-06-10 Blood pressure systolic 114 mmHg 2016-06-10 Blood pressure diastolic 74 mmHg 2016-06-10 MEDICATIONS Medication Instructions Dosage Frequency Start Date End Date Duration Status Lisinopril-Hydrochlorothiazide 20-25 MG TAKE ONE TABLET BY MOUTH IN THE MORNING Active Cyclobenzaprine HCl 10 mg Orally 2 times a day as needed for neck pain 1 tablet Apr, Active Zofran ODT 4 MG Orally every 8 hrs 1 tablet on the tongue and allow to dissolve 8h Jan, Active Azithromycin 250 MG Orally Once a day 2 tablets on the first day, then 1 tablet daily for 4 days 24h May, Jun, 5 day(s) Active RESULTS No Results PROCEDURES Procedure Date Ordered Related Diagnosis Body Site Office Visit, Est Pt., Level 3 Jun 10, 2016 IMMUNIZATIONS No Known Immunizations
--- OUTSIDE RECORDS SUMMARY | 2018-10-27 16:19 | XMS REPORT ---
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 Trailer Assembler Name Role Phone SURESH ANDRADE CP Unavailable Allergies No Known Allergies Problems Problem Type Condition Code Onset Dates Condition Status Problem Unspecified open-angle glaucoma, stage unspecified H40.10X0 Feb 11, 2015 Active Assessment Other chronic pain G89.29 Active Problem Presbyopia H52.4 Active Medications No Known Medications Procedures Procedure Coding System Code Date No Charge CPT-4 38706 Mar 24, 2015 Results Name Result Date Reference Range Unit Abnormality Flag [employer] Summary Purpose eClinicalWorks Submission
--- OUTSIDE RECORDS SUMMARY | 2018-10-27 16:19 | XMS REPORT ---
Author Author SURESH ANDRADE [facility] Address [address] [place] [address] Care Team Providers Care Head Golf Coach Name Role Phone SURESH ANDRADE Unavailable PROBLEMS Type Condition ICD9-CM Code [id number] Code Onset Dates Condition Status SNOMED Code Problem Other chronic pain G89.29 Active 058179502 Problem Right-sided low back pain without sciatica M54.5 Active 283986356 Problem Depression F32.9 Active 88823579 Problem Chronic tension-type headache, intractable G44.221 Active 897521082 Assessment Right lower quadrant abdominal pain R10.31 Apr, Active 810068011 Problem Neuropathy G62.9 Active 572950150 Assessment Cervicalgia M54.2 Apr, Active 01362214 Assessment Acute gastritis without hemorrhage, unspecified gastritis type K29.00 Apr, Active 35342475 Problem Insomnia G47.00 Active 357266155 Problem Arthralgia M25.50 Active 24404950 Problem Thyroid nodule E04.1 Active 411913665 Problem Anxiety disorder, unspecified F41.9 Active 331598265 Problem Presbyopia H52.4 Active 26918659 Problem Rheumatoid arthritis M06.9 Active 33543589 Assessment Chronic tension-type headache, intractable G44.221 Apr, Active 726341963 Problem Unspecified open-angle glaucoma, stage unspecified H40.10X0 Feb, Active 78970678 Problem Esophageal reflux K21.9 Active 841847154 Problem Hyperlipidemia, unspecified E78.5 Active 59758031 Problem Hypertension I10 Active 45999345 Problem Depressive disorder F32.9 Active 51400738 Problem Nondependent 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 Active 122394384 Problem Unspecified epilepsy without mention of intractable epilepsy G40.909 Active 83273167 ALLERGIES Substance Reaction Event Type Date Status Penicillin V Potassium anaphylaxis Drug Allergy Apr, Active Depakote 500 Mg Tablet,delayed Release (dr/ec) Unknown Non Drug Allergy Apr, Active Hydrocodone And Marijuana Hx of abuse Non Drug Allergy Apr, Active SOCIAL HISTORY No smoking Hx information available PLAN OF CARE VITAL SIGNS Height 62 in 2016-05-11 Weight 232 lbs 2016-05-11 Heart Rate 80 bpm 2016-05-11 Respiratory Rate 24 2016-05-11 BMI 42.43 kg/m2 2016-05-11 Blood pressure systolic 130 mmHg 2016-05-11 Blood pressure diastolic 80 mmHg 2016-05-11 MEDICATIONS Medication Instructions Dosage Frequency Start Date End Date Duration Status Zofran ODT 4 MG Orally every 8 hrs 1 tablet on the tongue and allow to dissolve 8h Jan, Active Lisinopril-Hydrochlorothiazide 20-25 MG TAKE ONE TABLET BY MOUTH IN THE MORNING Active Cyclobenzaprine HCl 10 mg Orally 2 times a day as needed for neck pain 1 tablet Apr, Active RESULTS Name Result Date Reference Range UA LONG DIP (IN HOUSE) 2016-05-11 Lot # [id number] Exp date 04/2017 Clarity slightly cloudy Color yellow Odor strong GLU negative NAUN negative KET negative SG 1.015 BLO trace- intact pH 6.0 Protein negative URO 0.2 NIT negative CARLOS negative Lot # Exp date CBC 2016-05-11 WBC 8.9 3.4-10.8 RBC 4.84 3.77-5.28 Hemoglobin 14.4 11.1-15.9 Hematocrit 42.8 34.0-46.6 MCV 88 79-97 MCH 29.8 26.6-33.0 MCHC 33.6 31.5-35.7 RDW 14.0 12.3-15.4 Platelets 342 150-379 Neutrophils 60 Lymphs 33 Monocytes 7 Eos 0 Basos 0 Neutrophils (Absolute) 5.2 1.4-7.0 Lymphs (Absolute) 3.0 0.7-3.1 Monocytes(Absolute) 0.7 0.1-0.9 Eos (Absolute) 0.0 0.0-0.4 Baso (Absolute) 0.0 0.0-0.2 Immature Granulocytes 0 Immature Grans (Abs) 0.0 0.0-0.1 CMP 2016-05-11 Glucose, Serum 89 65-99 BUN 8 6-24 Creatinine, Serum 0.71 0.57-1.00 eGFR If NonAfricn Am 100 >59 eGFR If Africn Am 116 >59 BUN/Creatinine Ratio 11 9-23 Sodium, Serum 143 136-144 Potassium, Serum 3.8 3.5-5.2 Chloride, Serum 98 97-106 Carbon Dioxide, Total 26 18-29 Calcium, Serum 9.6 8.7-10.2 Protein, Total, Serum 7.1 6.0-8.5 Albumin, Serum 4.4 3.5-5.5 Globulin, Total 2.7 1.5-4.5 A/G Ratio 1.6 1.1-2.5 Bilirubin, Total 0.4 0.0-1.2 Alkaline Phosphatase, S 81 39-117 AST (SGOT) 18 0-40 ALT (SGPT) 23 0-32 Xray : Abdomen 2v (Upright, KUB) - IN HOUSE 2016-05-11 PROCEDURES Procedure Date Ordered Related Diagnosis Body Site Office Visit, Est Pt., Level 3 May 11, 2016 X-RAY EXAM OF ABDOMEN May 11, 2016 URINALYSIS, AUTO, W/O SCOPE May 11, 2016 THER/PROPH/DIAG INJ, SC/IM May 11, 2016 PHENERGAN (IM) 25 MG (25 MG/ML) May 11, 2016 TORADOL (IM) 60 MG/2ML (UP TO 15 MG) May 11, 2016 COMPREHEN METABOLIC PANEL May 11, 2016 COMPLETE CBC W/AUTO DIFF WBC May 11, 2016 VENIPUNCT, ROUTINE* May 11, 2016 RBC SED RATE, NONAUTOMATED May 11, 2016 IMMUNIZATIONS Vaccine Route Administration Date Status TORADOL (IM) 60 MG/2ML (UP TO 15 MG) IM Intramuscular May 11, 2016 Administered PHENERGAN (IM) 25 MG (25 MG/ML) IM Intramuscular May 11, 2016 Administered
--- OUTSIDE RECORDS SUMMARY | 2018-10-27 16:19 | XMS REPORT ---
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 Teacher Education Director Name Role Phone SURESH ANDRADE CP Unavailable [...] associated with female genital organs 625.9 Active Problem Insomnia, unspecified 780.52 Active Problem Painful respiration 786.52 Active Problem Other and unspecified hyperlipidemia 272.4 Active Problem Urinary tract infection, site not specified 599.0 Active Problem Nondependent opioid abuse, unspecified 305.50 Active Problem Pain in joint, site unspecified 719.40 Active Problem Anxiety state, unspecified 300.00 Active Medications Medication Code System Code Instructions Start Date End Date Status Dosage tramadol NDC 0 50 mg August 19, 2014 take 2 tablet by Oral route every 8 hours as needed PRN pain Results No Known Results Summary Purpose eClinicalWorks Submission
--- OUTSIDE RECORDS SUMMARY | 2018-10-27 16:19 | XMS REPORT ---
Author Author SURESH ANDRADE [facility] eClinicalWorks Address Unknown Phone Unavailable Care Team Providers Care Tire Repairman Name Role Phone SURESH ANDRADE CP Unavailable Allergies, Adverse Reactions, Alerts Substance Reaction Event Type Depakote 500 Mg Tablet,delayed Release (dr/ec) Info Not Available Non Drug Allergy Hydrocodone And Marijuana Hx of abuse Non Drug Allergy Problems Problem Type Condition ICD-9 Code Onset Dates Condition Status Assessment UTI (urinary tract infection) 599.0 Active Assessment Other chronic pain 338.29 Active Assessment Dysuria 788.1 Active Problem Other chronic pain 338.29 Active Problem Unspecified epilepsy without mention of intractable epilepsy 345.90 Active Problem Hypertension 401.9 Active Problem Esophageal reflux 530.81 Active Problem Nondependent cannabis abuse, unspecified 305.20 Active Problem Depressive disorder, not elsewhere classified 311 Active Problem Other and unspecified hyperlipidemia 272.4 Active Assessment Hypertension 401.9 Active Assessment Hot flashes 627.2 Active Assessment Insomnia 780.52 Active Medications Medication Code System Code Instructions Start Date End Date Status Dosage Carafate [facility] [address]-46 1 GM/10ML Orally Twice a day 10 ml Omeprazole Magnesium [facility] [address] 20 mg Apr 11, 2014 1 capsule by Oral route 2 times per day tramadol [facility] 0 50 mg August 19, 2014 take 2 tablet by Oral route every 8 hours as needed PRN pain Lisinopril-Hydrochlorothiazide [facility] 29938102281 20-25 MG TAKE ONE TABLET BY MOUTH IN THE MORNING Nortriptyline HCl [facility] [address]-77 25 MG Orally Once a day at bedtime Mar 04, 2015 1 capsule Lyrica [facility] [address]-48 75 MG Orally Twice a day Jan 13, 2015 1 capsule Cymbalta [facility] [address]-12 60 mg August 19, 2014 1 capsule by Oral route 1 time per day Bactrim DS [facility] [address]-19 800-160 MG Orally 2 times a day Mar 04, 2015 Mar 11, 2015 1 tablet Procedures Procedure Coding System Code Date URINALYSIS, AUTO, W/O SCOPE CPT-4 66028 Mar 04, 2015 Office Visit, Est Pt., Level 3 CPT-4 26922 Mar 04, 2015 No Charge CPT-4 02652 Mar 04, 2015 VENIPUNCT, ROUTINE* CPT-4 67428 Mar 04, 2015 URINE CULTURE/COLONY COUNT CPT-4 29196 Mar 04, 2015 COMPLETE CBC W/AUTO DIFF WBC CPT-4 96580 Mar 04, 2015 ASSAY OF ESTRADIOL CPT-4 02344 Mar 04, 2015 COMPREHEN METABOLIC PANEL CPT-4 16049 Mar 04, 2015 LIPID PANEL CPT-4 07187 Mar 04, 2015 Vital Signs Date/Time: Mar 04, 2015 Temperature 98.2 F Weight 217.7 lbs Height 62 in BMI 39.81 Index Blood Pressure Diastolic 76 mmHg Blood Pressure Systolic 132 mmHg Cardiac Monitoring Heart Rate 72 bpm Results Name Result Date Reference Range Unit Abnormality Flag ROUTINE VENIPUNCTURE UA LONG DIP (IN HOUSE) Summary Purpose eClinicalWorks Submission
--- OUTSIDE RECORDS SUMMARY | 2018-10-27 16:19 | XMS REPORT ---
Author Author ERIC BINGHAM [facility] Address [address] [place] [address] Care Team Providers Care Flag Decorator Name Role Phone ERIC BINGHAM Unavailable PROBLEMS Type Condition ICD9-CM Code [id number] Code Onset Dates Condition Status SNOMED Code Problem Right-sided low back pain without sciatica M54.5 Active 185872842 Problem Arthralgia M25.50 Active 23082100 Problem Insomnia G47.00 Active 155089651 Problem Goiter E04.9 Active 5408139 Problem Presbyopia H52.4 Active 79893042 Problem Multinodular goiter E04.2 Active 661487835 Problem Thyroid nodule E04.1 Active 250048856 Problem Anxiety disorder, unspecified F41.9 Active 234098518 Problem Chronic tension-type headache, intractable G44.221 Active 053309998 Problem Neuropathy G62.9 Active 210394792 Problem Esophageal reflux K21.9 Active 967882108 Problem Depressive disorder F32.9 Active 93327281 Problem Unspecified open-angle glaucoma, stage unspecified H40.10X0 Feb, Active 39161559 Problem Rheumatoid arthritis M06.9 Active 32342419 Problem Other chronic pain G89.29 Active 056658160 Problem Hyperlipidemia, unspecified E78.5 Active 44463215 Problem Nondependent 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 Active 676416729 Problem Hypertension I10 Active 13604473 Problem Unspecified epilepsy without mention of intractable epilepsy G40.909 Active 52597042 Problem Depression F32.9 Active 07145911 ALLERGIES Substance Reaction Event Type Date Status Penicillin V Potassium anaphylaxis Drug Allergy Jun, Active Depakote 500 Mg Tablet,delayed Release (dr/ec) Unknown Non Drug Allergy Jun, Active Hydrocodone And Marijuana Hx of abuse Non Drug Allergy Jun, Active SOCIAL HISTORY No smoking Hx information available PLAN OF CARE Activity Details Follow Up prn Reason: VITAL SIGNS Height 62 in 2016-06-18 Weight 244.4 lbs 2016-06-18 Temperature 97.9 degrees Fahrenheit 2016-06-18 Heart Rate 80 bpm 2016-06-18 Respiratory Rate 24 2016-06-18 BMI 44.70 kg/m2 2016-06-18 Blood pressure systolic 110 mmHg 2016-06-18 Blood pressure diastolic 80 mmHg 2016-06-18 MEDICATIONS Medication Instructions Dosage Frequency Start Date End Date Duration Status Lisinopril-Hydrochlorothiazide 20-25 MG TAKE ONE TABLET BY MOUTH IN THE MORNING Active PredniSONE 20 MG Orally Once a day 3 qd 2 d, 2 qd 2d, 1qd 2d 24h Jun, Jun, 6 days Active Zofran ODT 4 MG Orally every 8 hrs 1 tablet on the tongue and allow to dissolve 8h Jan, Active RESULTS No Results PROCEDURES Procedure Date Ordered Related Diagnosis Body Site Office Visit, Est Pt., Level 2 Jun 18, 2016 IMMUNIZATIONS No Known Immunizations
--- OUTSIDE RECORDS SUMMARY | 2018-10-27 16:19 | XMS REPORT ---
Author Author PANDA LEONARD [facility] [place] eClinicalWorks Address Unknown Phone Unavailable Care Team Providers Care Chair Car Driver Name Role Phone PANDA LEONARD CP Unavailable Allergies, Adverse Reactions, Alerts Substance Reaction Event Type Hydrocodone And Marijuana Hx of abuse Non Drug Allergy Depakote 500 Mg Tablet,delayed Release (dr/ec) Info Not Available Non Drug Allergy Problems Problem Type Condition Code Onset Dates Condition Status Problem Unspecified open-angle glaucoma, stage unspecified H40.10X0 Feb 11, 2015 Active Assessment Hematuria R31.9 Active Problem Presbyopia H52.4 Active Medications No Known Medications Procedures Procedure Coding System Code Date COMPREHEN METABOLIC PANEL CPT-4 30211 Apr 25, 2015 Office Visit, Est Pt., Level 3 CPT-4 44905 Apr 25, 2015 URINALYSIS, AUTO, W/O SCOPE CPT-4 90903 Apr 25, 2015 VENIPUNCT, ROUTINE* CPT-4 55519 Apr 25, 2015 Vital Signs Date/Time: Apr 25, 2015 Temperature 98.2 F Weight 228.1 lbs Height 62 in BMI 41.72 Index Blood Pressure Diastolic 76 mmHg Blood Pressure Systolic 144 mmHg Cardiac Monitoring Heart Rate 70 bpm Results Name Result Date Reference Range Unit Abnormality Flag UA W/CULTURE IF INDICATED (IN HOUSE) CMP Summary Purpose eClinicalWorks Submission
--- OUTSIDE RECORDS SUMMARY | 2018-10-27 16:22 | XMS REPORT | Continuity of Care Document ---
Author Organization Unknown Address Unknown Allergies Active Description Code Type Severity Reaction Onset Reported/Identified Relationship to Patient Clinical Status Yes Penicillins [id number] Drug Allergy Mild hives 01/28/2009 Yes Penicillins Drug Allergy N/A N/A 03/31/2010 Yes Penicillins Drug Allergy 03/31/2010 Yes antihistamine Drug Allergy 04/22/2011 Yes Depakote 500 mg tablet,delayed release (DR/EC) Drug Allergy N/A N/A 06/26/2012 Yes Depakote 500 mg tablet,delayed release (DR/EC) Drug Allergy 06/26/2012 Medications There is no data. Problems Date Dx Coded Attending Type Code Diagnosis Diagnosed By 03/31/2010 SURESH ANDRADE APRN S 461.0 Acute Maxillary Sinusitis 03/31/2010 SURESH ANDRADE APRN S 461.0 Acute Maxillary Sinusitis 03/31/2010 CATIE ROGERS DO 461.0 Acute Maxillary Sinusitis 03/31/2010 SURESH ANDRADE APRN S 461.0 Acute Maxillary Sinusitis 03/31/2010 461.0 Acute Maxillary Sinusitis 03/31/2010 461.0 Acute Maxillary Sinusitis 03/31/2010 461.0 Acute Maxillary Sinusitis 03/31/2010 461.0 Acute Maxillary Sinusitis 03/31/2010 JOSE ELIAS CORNELIUS APRN 461.0 Acute Maxillary Sinusitis 03/31/2010 MAINOR CONTRERAS APRN 461.0 Acute Maxillary Sinusitis 03/31/2010 ROWENA ANDRADE APRNA S 461.0 Acute Maxillary Sinusitis 03/31/2010 ROWENA ANDRADE APRNA S 461.0 Acute Maxillary Sinusitis 03/31/2010 ROWENA ANDRADE APRNA S 461.0 Acute Maxillary Sinusitis 03/31/2010 ROWENA ANDRADE APRNA S 461.0 Acute Maxillary Sinusitis 03/31/2010 LUPE CDL DRIVER, SURESH S 461.0 Acute Maxillary Sinusitis 03/31/2010 461.0 Acute Maxillary Sinusitis 03/31/2010 OG CDL DRIVER, MEGHA 461.0 Acute Maxillary Sinusitis 03/31/2010 LUPE CDL DRIVER, SURESH S 461.0 Acute Maxillary Sinusitis 03/31/2010 LUPE CDL DRIVER, SURESH S 461.0 Acute Maxillary Sinusitis 03/31/2010 LUPE CDL DRIVER, SURESH S 461.0 Acute Maxillary Sinusitis 03/31/2010 [facility] 461.0 Acute Maxillary Sinusitis 03/31/2010 LUPE CDL DRIVER, SURESH S 461.0 Acute Maxillary Sinusitis 03/31/2010 LUPE CDL DRIVER, SURESH S 461.0 Acute Maxillary Sinusitis 03/31/2010 MAURICE CDL DRIVER, JAILENE R 461.0 Acute Maxillary Sinusitis 03/31/2010 PANCHO CDL DRIVER, AIRAM A 461.0 Acute Maxillary Sinusitis 03/31/2010 [facility], SYBIL R 461.0 Acute Maxillary Sinusitis 03/31/2010 [facility] 461.0 Acute Maxillary Sinusitis 03/31/2010 PANCHO CDL DRIVER, AIRAM A 461.0 Acute Maxillary Sinusitis 04/01/2011 LUPE CDL DRIVER, SURESH S 401.1 BENIGN ESSENTIAL HYPERTENSION 04/01/2011 LUPE CDL DRIVER, SURESH S 455.6 HEMORRHOIDS NOS 04/01/2011 LUPE CDL DRIVER, SURESH S 553.9 HERNIA UNSPECIFIED SITE 04/01/2011 LUPE CDL DRIVER, SURESH S 564.1 IRRITABLE BOWEL SYNDROME 04/01/2011 LUPE CDL DRIVER, SURESH S V04.81 FLU DX (3 YRS AND ABOVE, IM) 04/01/2011 LUPE CDL DRIVER, SURESH S 401.1 BENIGN ESSENTIAL HYPERTENSION 04/01/2011 LUPE CDL DRIVER, SURESH S 455.6 HEMORRHOIDS NOS 04/01/2011 LUPE CDL DRIVER, SURESH S 553.9 HERNIA UNSPECIFIED SITE 04/01/2011 LUPE CDL DRIVER, SURESH S 564.1 IRRITABLE BOWEL SYNDROME 04/01/2011 LUPE CDL DRIVER, SURESH S V04.81 FLU DX (3 YRS AND ABOVE, IM) 04/01/2011 SUE FERNANDO CATIE K 401.1 BENIGN ESSENTIAL HYPERTENSION 04/01/2011 SONIA ROGERS DOA K 455.6 HEMORRHOIDS NOS 04/01/2011 SONIA ROGERS DOA K 553.9 HERNIA UNSPECIFIED SITE 04/01/2011 CATIE ROGRES DO K 564.1 IRRITABLE BOWEL SYNDROME 04/01/2011 CATIE ROGERS DO K V04.81 FLU DX (3 YRS AND ABOVE, IM) 04/01/2011 SURESH ANDRADE APRN S 401.1 BENIGN ESSENTIAL HYPERTENSION 04/01/2011 ROWENA ANDRADE APRNA S 455.6 HEMORRHOIDS NOS 04/01/2011 SURESH ANDRADE [...] (3 YRS AND ABOVE, IM) 04/01/2011 BEN WOLFMAINOR Hollingsworth T 401.1 BENIGN ESSENTIAL HYPERTENSION 04/01/2011 BEN WOLFMAINOR [place] T 455.6 HEMORRHOIDS NOS 04/01/2011 BEN WOLFMAINOR [place] T 553.9 HERNIA UNSPECIFIED SITE 04/01/2011 BEN WOLFMAINOR [place] T 564.1 IRRITABLE BOWEL SYNDROME 04/01/2011 BEN WOLFMAINOR Hollingsworth V04.81 FLU DX (3 YRS AND ABOVE, IM) 04/01/2011 MATT ANDRADE APRNNDA S 401.1 BENIGN ESSENTIAL HYPERTENSION 04/01/2011 LUPE BROWN SURESH S 455.6 HEMORRHOIDS NOS 04/01/2011 LUPE [...] S 553.9 HERNIA UNSPECIFIED SITE 04/01/2011 LUPE CDL DRIVER, SURESH S 564.1 IRRITABLE BOWEL SYNDROME 04/01/2011 LUPE BROWN, SURESH S V04.81 FLU DX (3 YRS AND ABOVE, IM) 04/01/2011 LUPE BROWN, SURESH S 401.1 BENIGN ESSENTIAL HYPERTENSION 04/01/2011 LUPE BROWN, SURESH S 455.6 HEMORRHOIDS NOS 04/01/2011 LUPE BROWN, SURESH S 553.9 HERNIA UNSPECIFIED SITE 04/01/2011 LUPEMARY WOLFN, SURESH S 564.1 IRRITABLE BOWEL SYNDROME 04/01/2011 LUPEMARY WOLFDarrick SURESH S V04.81 FLU DX (3 YRS AND ABOVE, IM) 04/01/2011 LUPE CDL DRIVER, SURESH S 401.1 BENIGN ESSENTIAL HYPERTENSION 04/01/2011 LUPE CDL DRIVER, SURESH S 455.6 HEMORRHOIDS NOS 04/01/2011 LUPE CDL DRIVERMATT HollingsworthNDA S 553.9 HERNIA UNSPECIFIED SITE 04/01/2011 LUPE CDL DRIVER, SURESH S 564.1 IRRITABLE BOWEL SYNDROME 04/01/2011 LUPE CDL DRIVER, SURESH S V04.81 FLU DX (3 YRS AND ABOVE, IM) 04/01/2011 LUPE CDL DRIVERMATT HollingsworthNDA S 401.1 BENIGN ESSENTIAL HYPERTENSION 04/01/2011 MATT ANDRADE APRNNDA S 455.6 HEMORRHOIDS NOS 04/01/2011 LUPE CDL DRIVERMATT HollingsworthNDA S 553.9 HERNIA UNSPECIFIED SITE 04/01/2011 LUEP CDL DRIVER, SURESH S 564.1 IRRITABLE BOWEL SYNDROME 04/01/2011 LUPE CDL DRIVER, SURESH S V04.81 FLU DX (3 YRS AND ABOVE, IM) 04/01/2011 401.1 BENIGN ESSENTIAL HYPERTENSION 04/01/2011 455.6 HEMORRHOIDS NOS 04/01/2011 553.9 HERNIA UNSPECIFIED SITE 04/01/2011 564.1 IRRITABLE BOWEL SYNDROME 04/01/2011 V04.81 FLU DX (3 YRS AND ABOVE, IM) 04/01/2011 OG CDL DRIVER, MEGHA 401.1 BENIGN ESSENTIAL HYPERTENSION 04/01/2011 OG CDL DRIVER, MEGHA 455.6 HEMORRHOIDS NOS 04/01/2011 OG CDL DRIVER, MEGHA 553.9 HERNIA UNSPECIFIED SITE 04/01/2011 OG CDL DRIVER, MEGHA 564.1 IRRITABLE BOWEL SYNDROME 04/01/2011 OG CDL DRIVER, MEGHA V04.81 FLU DX (3 YRS AND ABOVE, IM) 04/01/2011 MATT ANDRADE APRNNDA S 401.1 BENIGN ESSENTIAL HYPERTENSION 04/01/2011 MATT ANDRADE APRNNDA S 455.6 HEMORRHOIDS NOS 04/01/2011 LUPE CDL DRIVER, SURESH S 553.9 HERNIA UNSPECIFIED SITE 04/01/2011 LUPE CDL DRIVER, SURESH S 564.1 IRRITABLE BOWEL SYNDROME 04/01/2011 LUPE CDL DRIVER, SURESH S V04.81 FLU DX (3 YRS AND ABOVE, IM) 04/01/2011 MATT ANDRADE APRNNDA S 401.1 BENIGN ESSENTIAL HYPERTENSION 04/01/2011 LUPE WOLFN, SURESH S 455.6 HEMORRHOIDS NOS 04/01/2011 LUPE CDL DRIVER, SURESH S 553.9 HERNIA UNSPECIFIED SITE 04/01/2011 LUPE CDL DRIVER, SURESH S 564.1 IRRITABLE BOWEL SYNDROME 04/01/2011 MATT ANDRADE APRNNDA S V04.81 FLU DX (3 YRS AND ABOVE, IM) 04/01/2011 MATT ANDRADE APRNNDA S 401.1 BENIGN ESSENTIAL HYPERTENSION 04/01/2011 MATT ANDRADE APRNNDA S 455.6 HEMORRHOIDS NOS 04/01/2011 LUPE BROWN, [...] S 401.1 BENIGN ESSENTIAL HYPERTENSION 04/01/2011 LUPE CDL DRIVER, SURESH S 455.6 HEMORRHOIDS NOS 04/01/2011 LUPE CDL DRIVER, SURESH S 553.9 HERNIA UNSPECIFIED SITE 04/01/2011 MATT ANDRADE APRNNDA S 564.1 IRRITABLE BOWEL SYNDROME 04/01/2011 LUPE WOLFN, SURESH S V04.81 FLU DX (3 YRS AND ABOVE, IM) 04/01/2011 LUPE CDL DRIVERMATTSURESH S 401.1 BENIGN ESSENTIAL HYPERTENSION 04/01/2011 LUPE WOLFN, SURESH S 455.6 HEMORRHOIDS NOS 04/01/2011 LUPE WOLFN, SURESH S 553.9 HERNIA UNSPECIFIED SITE 04/01/2011 LUPE WOLFNMATTSURESH S 564.1 IRRITABLE BOWEL SYNDROME 04/01/2011 LUPE WOLFN, SURESH S V04.81 FLU DX (3 YRS AND ABOVE, IM) 04/01/2011 MAURICE CDL DRIVER, JAILENE R 401.1 BENIGN ESSENTIAL HYPERTENSION 04/01/2011 MAURICE CDL DRIVER, JAILENE R 455.6 HEMORRHOIDS NOS 04/01/2011 MAURICE CDL DRIVER, JAILENE R 553.9 HERNIA UNSPECIFIED SITE 04/01/2011 MAURICE CDL DRIVER JAILENE R 564.1 IRRITABLE BOWEL SYNDROME 04/01/2011 MAURICE CDL DRIVER, JAILENE R V04.81 FLU DX (3 YRS AND ABOVE, IM) 04/01/2011 PANCHO CDL DRIVER, AIRAM A 401.1 BENIGN ESSENTIAL HYPERTENSION 04/01/2011 PANCHO CDL DRIVER, AIRAM A 455.6 HEMORRHOIDS NOS 04/01/2011 PANCHO CDL DRIVER, AIRAM A 553.9 HERNIA UNSPECIFIED SITE 04/01/2011 PANCHO CDL DRIVER, AIRAM A 564.1 IRRITABLE BOWEL SYNDROME 04/01/2011 PANCHO CDL DRIVER, AIRAM A V04.81 FLU DX (3 YRS [...] (3 YRS AND ABOVE, IM) 04/01/2011 PANCHO CDL DRIVER, AIRAM A 401.1 BENIGN ESSENTIAL HYPERTENSION 04/01/2011 PANCHO CDL DRIVER, AIRAM A 455.6 HEMORRHOIDS NOS 04/01/2011 PANCHO CDL DRIVER, AIRAM A 553.9 HERNIA UNSPECIFIED SITE 04/01/2011 PANCHO CDL DRIVER, AIRAM A 564.1 IRRITABLE BOWEL SYNDROME 04/01/2011 PANCHO CDL DRIVER, AIRAM A V04.81 FLU DX (3 YRS AND ABOVE, IM) 04/22/2011 ROWENA ANDRADE APRNA S 789.00 Abdominal Pain Unspecified Site 04/22/2011 ROWENA ANDRADE APRNA S 789.00 Abdominal Pain Unspecified Site 04/22/2011 CATIE ROGERS DO 789.00 Abdominal Pain Unspecified Site 04/22/2011 ROWENA ANDRADE APRNA S 789.00 Abdominal Pain Unspecified Site 04/22/2011 789.00 Abdominal Pain Unspecified Site 04/22/2011 789.00 Abdominal Pain Unspecified Site 04/22/2011 789.00 Abdominal Pain Unspecified Site 04/22/2011 789.00 Abdominal Pain Unspecified Site 04/22/2011 JOSE ELIAS CORNELIUS APRN 789.00 Abdominal Pain Unspecified Site 04/22/2011 MAINOR CONTRERAS APRN 789.00 Abdominal Pain Unspecified Site 04/22/2011 ROWENA ANDRADE APRNA S 789.00 Abdominal Pain Unspecified Site 04/22/2011 ROWENA ANDRADE APRNA S 789.00 Abdominal Pain Unspecified Site 04/22/2011 ROWENA ANDRADE APRNA S 789.00 Abdominal Pain Unspecified Site 04/22/2011 ROWENA ANDRADE APRNA S 789.00 Abdominal Pain Unspecified Site 04/22/2011 ROEWNA ANDRADE APRNA S 789.00 Abdominal Pain Unspecified Site 04/22/2011 789.00 Abdominal Pain Unspecified Site 04/22/2011 OG CDL DRIVER, MEGHA 789.00 Abdominal Pain Unspecified Site 04/22/2011 LUPE CDL DRIVER, SURESH S 789.00 Abdominal Pain Unspecified Site 04/22/2011 LUPE CDL DRIVER, SURESH S 789.00 Abdominal Pain Unspecified Site 04/22/2011 LUPE CDL DRIVER, SURESH S 789.00 Abdominal Pain Unspecified Site 04/22/2011 [facility], SYBIL R 789.00 Abdominal Pain Unspecified Site 04/22/2011 LUPE CDL DRIVER, SURESH S 789.00 Abdominal Pain Unspecified Site 04/22/2011 LUPE CDL DRIVER, SURESH S 789.00 Abdominal Pain Unspecified Site 04/22/2011 MAURICE CDL DRIVERMANJUJAILENE R 789.00 Abdominal Pain Unspecified Site 04/22/2011 PANCHO CDL DRIVER, AIRAM A 789.00 Abdominal Pain Unspecified Site 04/22/2011 [facility], SYBIL R 789.00 Abdominal Pain Unspecified Site 04/22/2011 [facility], SYBIL R 789.00 Abdominal Pain Unspecified Site 04/22/2011 PANCHO CDL DRIVER, AIRAM A 789.00 Abdominal Pain Unspecified Site 2011 LUPE CDL DRIVER, SURESH S 564.00 Constipation 2011 LUPE CDL DRIVER, SURESH S 783.21 WEIGHT LOSS 2011 LUPE CDL DRIVER, SURESH S 787.01 Nausea With Vomiting 2011 LUPE CDL DRIVER, SURESH S 787.91 Diarrhea 2011 LUPE CDL DRIVER, SURESH S 789.07 Abdominal Pain Generalized 2011 LUPE CDL DRIVER, SURESH S 564.00 Constipation 2011 LUPE CDL DRIVER, SURESH S 783.21 WEIGHT LOSS 2011 ULPE CDL DRIVER, SURESH S 787.01 Nausea With Vomiting 2011 LUPE CDL DRIVER, SURESH S 787.91 Diarrhea 2011 LUPE CDL DRIVER, SURESH S 789.07 Abdominal Pain Generalized 2011 SUE DO CATIE K 564.00 Constipation 2011 ROGERS DO, CATIE K 783.21 WEIGHT LOSS 2011 ROGERS DO, CATIE K 787.01 Nausea With Vomiting 2011 ROGERS DO, CATIE K 787.91 Diarrhea 2011 ROGERS DO, CATIE K 789.07 Abdominal Pain Generalized 2011 ROWENA ANDRADE APRNA S 564.00 Constipation 2011 ROWENA ANDRADE APRNA S 783.21 WEIGHT LOSS 2011 MATT ANDRADE APRNNDA S 787.01 Nausea With Vomiting 2011 MATT ANDRADE APRNNDA S 787.91 Diarrhea 2011 ROWENA ANDRADE APRNA S 789.07 Abdominal Pain Generalized 2011 564.00 [...] CORNELIUS APRN 787.01 Nausea With Vomiting 2011 JOSE ELIAS CORNELIUS APRN 787.91 Diarrhea 2011 JOSE ELIAS CORNELIUS APRN 789.07 Abdominal Pain Generalized 2011 BEN CDL DRIVER, MAINOR T 564.00 Constipation 2011 BEN CDL DRIVER, MAINOR T 783.21 WEIGHT LOSS 2011 BEN CDL DRIVER, MAINOR T 787.01 Nausea With Vomiting 2011 BEN CDL DRIVER, MAINOR T 787.91 Diarrhea 2011 BEN CDL DRIVER, MAINOR T 789.07 Abdominal Pain Generalized 2011 LUPE CDL DRIVER, SURESH S 564.00 Constipation 2011 LUPE CDL DRIVER, SURESH S 783.21 WEIGHT LOSS 2011 LUPE CDL DRIVER, SURESH S 787.01 Nausea With Vomiting 2011 LUPE CDL DRIVER, SURESH S 787.91 Diarrhea 2011 LUPE CDL DRIVER, SURESH S 789.07 Abdominal Pain Generalized 2011 LUPE CDL DRIVER, SURESH S 564.00 Constipation 2011 LUPE CDL DRIVER, SURESH S 783.21 WEIGHT LOSS 2011 LUPE CDL DRIVER, SURESH S 787.01 Nausea With Vomiting 2011 LUPE CDL DRIVER, SURESH S 787.91 Diarrhea 2011 LUPE CDL DRIVER, SURESH S 789.07 Abdominal Pain Generalized 2011 LUPE CDL DRIVER, SURESH S 564.00 Constipation 2011 LUPE CDL DRIVER, SURESH S 783.21 WEIGHT LOSS 2011 LUPE CDL DRIVER, SURESH S 787.01 Nausea With Vomiting 2011 LUPE CDL DRIVER, SURESH S 787.91 Diarrhea 2011 LUPE CDL DRIVER, SURESH S 789.07 Abdominal Pain Generalized 2011 LUPE CDL DRIVER, SURESH S 564.00 Constipation 2011 LUPE CDL DRIVER, SURESH S 783.21 WEIGHT LOSS 2011 LUPE CDL DRIVER, SURESH S 787.01 Nausea With Vomiting 2011 LUPE CDL DRIVER, SURESH S 787.91 Diarrhea 2011 LUPE CDL DRIVER, SURESH S 789.07 Abdominal Pain Generalized 2011 LUPE CDL DRIVER, SURESH S 564.00 Constipation 2011 LUPE CDL DRIVER, SURESH S 783.21 WEIGHT LOSS 2011 LUPE CDL DRIVER, SURESH S 787.01 Nausea With Vomiting 2011 LUPE CDL DRIVER, SURESH S 787.91 Diarrhea 2011 LUPE CDL DRIVER, SURESH S 789.07 Abdominal Pain Generalized 2011 564.00 Constipation 2011 783.21 WEIGHT LOSS 2011 787.01 Nausea With Vomiting 2011 787.91 Diarrhea 2011 789.07 Abdominal Pain Generalized 2011 OG CDL DRIVER, MEGHA 564.00 Constipation 2011 OG CDL DRIVER, MEGHA 783.21 WEIGHT LOSS 2011 OG CDL DRIVER, MEGHA 787.01 Nausea With Vomiting 2011 OG CDL DRIVER, MEGHA 787.91 Diarrhea 2011 OG CDL DRIVER, MEGHA 789.07 Abdominal Pain Generalized 2011 LUPE CDL DRIVER, SURESH S 564.00 Constipation 2011 LUPE CDL DRIVER, SURESH S 783.21 WEIGHT LOSS 2011 LUPE CDL DRIVER, SURSEH S 787.01 Nausea With Vomiting 2011 LUPE CDL DRIVER, SURESH S 787.91 Diarrhea 2011 LUPE CDL DRIVER, SURESH S 789.07 Abdominal Pain Generalized 2011 LUPE CDL DRIVER, SURESH S 564.00 Constipation 2011 LUPE CDL DRIVER, SURESH S 783.21 WEIGHT LOSS 2011 LUPE CDL DRIVER, SURESH S 787.01 Nausea With Vomiting 2011 LUPE CDL DRIVER, SURESH S 787.91 Diarrhea 2011 LUPE CDL DRIVER, SURESH S 789.07 Abdominal Pain Generalized 2011 LUPE CDL DRIVER, SURESH S 564.00 Constipation 2011 LUPE CDL DRIVER, SURESH S 783.21 WEIGHT LOSS 2011 MATT ANDRADE APRNNDA S 787.01 Nausea With Vomiting 2011 MATT ANDRADE APRNNDA S 787.91 Diarrhea 2011 MATT ANDRADE APRNNDA S 789.07 Abdominal Pain Generalized 2011 [facility], SYBIL R 564.00 Constipation 2011 [facility], SYBIL R 783.21 WEIGHT LOSS 2011 [facility], SYBIL R 787.01 Nausea With Vomiting 2011 [facility], SYBIL R 787.91 Diarrhea 2011 [facility], SYBIL R 789.07 Abdominal Pain Generalized 2011 MATT ANDRADE APRNNDA S 564.00 Constipation 2011 LUPE BROWN SURESH S 783.21 WEIGHT LOSS 2011 MATT ANDRADE APRNNDA S 787.01 Nausea With Vomiting 2011 MTAT ANDRADE APRNNDA S 787.91 Diarrhea 2011 MATT ANDRADE APRNNDA S 789.07 Abdominal Pain Generalized 2011 MATT ANDRADE APRNNDA S 564.00 Constipation 2011 LUPE BROWN SURESH S 783.21 WEIGHT LOSS 2011 MATT ANDRADE APRNNDA S 787.01 Nausea With Vomiting 2011 MATT ANDRADE APRNNDA S 787.91 Diarrhea 2011 MATT ANDRADE APRNNDA S 789.07 Abdominal Pain Generalized 2011 MAURICE CDL DRIVER, JAILENE R 564.00 Constipation 2011 MAURICE CDL DRIVER, JAILENE R 783.21 WEIGHT LOSS 2011 MAURICE CDL DRIVER, JAILENE R 787.01 Nausea With Vomiting 2011 MAURICE CDL DRIVER, JAILENE R 787.91 Diarrhea 2011 MAURICE CDL DRIVER, JAILENE R 789.07 Abdominal Pain Generalized 2011 PANCHO CDL DRIVER, AIRAM A 564.00 Constipation 2011 PANCHO CDL DRIVER, AIRAM A 783.21 WEIGHT LOSS 2011 PANCHO CDL DRIVER, AIRAM A 787.01 Nausea With Vomiting 2011 PANCHO CDL DRIVER, AIRAM A 787.91 Diarrhea 2011 PANCHO CDL DRIVER, AIRAM A 789.07 Abdominal Pain Generalized 2011 [...] R 789.07 Abdominal Pain Generalized 2011 PANCHO WOLFN, AIRAM A 564.00 Constipation 2011 PANCHO CDL DRIVER, AIRAM A 783.21 WEIGHT LOSS 2011 PANCHO CDL DRIVER, AIRAM A 787.01 Nausea With Vomiting 2011 PANCHO CDL DRIVER, AIRAM A 787.91 Diarrhea 2011 PANCHO CDL DRIVER, AIRAM A 789.07 Abdominal Pain Generalized 10/04/2011 Ot 211.3 BENIGN NEOPLASM LG BOWEL 10/04/2011 Ot 211.4 BENIGN NEOPL RECTUM/ANUS 10/04/2011 Ot 272.4 HYPERLIPIDEMIA NEC/NOS 10/04/2011 Ot 296.80 BIPOLAR DISORDER, UNSPECIFIED 10/04/2011 Ot 401.9 HYPERTENSION NOS 10/04/2011 Ot 530.11 REFLUX ESOPHAGITIS 10/04/2011 Ot 531.90 STOMACH ULCER NOS 11/01/2011 SURESH ANDRADE APRN S 211.3 BENIGN NEOPLASM OF COLON 11/01/2011 SURESH ANDRADE APRN S 530.81 ESOPHAGEAL REFLUX 11/01/2011 SURESH ANDRADE APRN S 531.30 ACUTE GASTRIC ULCER WITHOUT HEMORRHAGE OR PERFORATION WITHOUT OBSTRUCTION 11/01/2011 LUPE BROWN SURESH S 535.50 Gastritis Unspec 11/01/2011 LUPE BROWN SURESH S 211.3 BENIGN NEOPLASM OF COLON 11/01/2011 LUPE BROWN SURESH S 530.81 ESOPHAGEAL REFLUX 11/01/2011 LUPE CDL DRIVER, SURESH S 531.30 ACUTE GASTRIC ULCER WITHOUT HEMORRHAGE OR PERFORATION WITHOUT OBSTRUCTION 11/01/2011 LUPE BROWN SURESH S 535.50 Gastritis Unspec 11/01/2011 ROGERS DO, CATIE K 211.3 BENIGN NEOPLASM OF COLON 11/01/2011 ROGERS DO, CATIE K 530.81 ESOPHAGEAL REFLUX 11/01/2011 ROGERS DO, CATIE K 531.30 ACUTE GASTRIC ULCER WITHOUT HEMORRHAGE OR PERFORATION WITHOUT OBSTRUCTION 11/01/2011 ROGERS DO, CATIE K 535.50 Gastritis Unspec 11/01/2011 LUPE BROWN SURESH S 211.3 BENIGN NEOPLASM OF COLON 11/01/2011 MATT ANDRADE APRNNDA S 530.81 ESOPHAGEAL REFLUX 11/01/2011 LUPE BROWN SURESH S 531.30 ACUTE GASTRIC ULCER WITHOUT HEMORRHAGE OR PERFORATION WITHOUT OBSTRUCTION 11/01/2011 LUPE BROWN, SURESH S 535.50 Gastritis Unspec 11/01/2011 211.3 [...] NEOPLASM OF COLON 11/01/2011 JOSE ELIAS CORNELIUS APRNH 530.81 ESOPHAGEAL REFLUX 11/01/2011 ASHLI CDL DRIVER, JOSE ELIAS ELDER 531.30 ACUTE GASTRIC ULCER WITHOUT HEMORRHAGE OR PERFORATION WITHOUT OBSTRUCTION 11/01/2011 ASHLI WOLFN, JOSE ELIAS ELDER 535.50 Gastritis Unspec 11/01/2011 BEN WOLFMAINOR Hollingsworth T 211.3 BENIGN NEOPLASM OF COLON 11/01/2011 BEN WOLFN, MAINOR T 530.81 ESOPHAGEAL REFLUX 11/01/2011 BEN WOLFMAINOR [place] T 531.30 ACUTE GASTRIC ULCER WITHOUT HEMORRHAGE OR PERFORATION WITHOUT OBSTRUCTION 11/01/2011 BEN WOLFDarrick MAINOR T 535.50 Gastritis Unspec 11/01/2011 LUPE CDL DRIVER, SURESH S 211.3 BENIGN NEOPLASM OF COLON 11/01/2011 LUPE CDL DRIVER, SURESH S 530.81 ESOPHAGEAL REFLUX 11/01/2011 LUPE CDL DRIVER, SURESH S 531.30 ACUTE GASTRIC ULCER WITHOUT HEMORRHAGE OR PERFORATION WITHOUT OBSTRUCTION 11/01/2011 LUPE CDL DRIVER, SURESH S 535.50 Gastritis Unspec 11/01/2011 LUPE CDL DRIVER, SURESH S 211.3 BENIGN NEOPLASM OF COLON 11/01/2011 LUPE CDL DRIVER, SURESH S 530.81 ESOPHAGEAL REFLUX 11/01/2011 LUPE CDL DRIVER, SURESH S 531.30 ACUTE GASTRIC ULCER WITHOUT HEMORRHAGE OR PERFORATION WITHOUT OBSTRUCTION 11/01/2011 LUPE CDL DRIVER, SURESH S 535.50 Gastritis Unspec 11/01/2011 LUPE CDL DRIVER, SURESH S 211.3 BENIGN NEOPLASM OF COLON 11/01/2011 LUPE CDL DRIVER, SURESH S 530.81 ESOPHAGEAL REFLUX 11/01/2011 LUPE CDL DRIVER, SURESH S 531.30 ACUTE GASTRIC ULCER WITHOUT HEMORRHAGE OR PERFORATION WITHOUT OBSTRUCTION 11/01/2011 LUPE CDL DRIVER, SURESH S 535.50 Gastritis Unspec 11/01/2011 LUPE CDL DRIVER, SURESH S 211.3 BENIGN NEOPLASM OF COLON 11/01/2011 LUPE CDL DRIVER, SURESH S 530.81 ESOPHAGEAL REFLUX 11/01/2011 LUPE CDL DRIVER, SURESH S 531.30 ACUTE GASTRIC ULCER WITHOUT HEMORRHAGE OR PERFORATION WITHOUT OBSTRUCTION 11/01/2011 LUPE CDL DRIVER, SURESH S 535.50 Gastritis Unspec 11/01/2011 LUPE CDL DRIVER, SURESH S 211.3 BENIGN NEOPLASM OF COLON 11/01/2011 LUPE CDL DRIVER, SURESH S 530.81 ESOPHAGEAL REFLUX 11/01/2011 LUPE CDL DRIVER, SURESH S 531.30 ACUTE GASTRIC ULCER WITHOUT HEMORRHAGE OR PERFORATION WITHOUT OBSTRUCTION 11/01/2011 LUPE CDL DRIVER, SURESH S 535.50 Gastritis Unspec 11/01/2011 211.3 BENIGN NEOPLASM OF COLON 11/01/2011 530.81 ESOPHAGEAL REFLUX 11/01/2011 531.30 ACUTE GASTRIC ULCER WITHOUT HEMORRHAGE OR PERFORATION WITHOUT OBSTRUCTION 11/01/2011 535.50 Gastritis Unspec 11/01/2011 OG CDL DRIVER, MEGHA 211.3 BENIGN NEOPLASM OF COLON 11/01/2011 OG CDL DRIVER, MEGHA 530.81 ESOPHAGEAL REFLUX 11/01/2011 OG CDL DRIVER, MEGHA 531.30 ACUTE GASTRIC ULCER WITHOUT HEMORRHAGE OR PERFORATION WITHOUT OBSTRUCTION 11/01/2011 OG CDL DRIVER, MEGHA 535.50 Gastritis Unspec 11/01/2011 LUPE BROWN, SURESH S 211.3 BENIGN NEOPLASM OF COLON 11/01/2011 LUPE CDL DRIVER, SURESH S 530.81 ESOPHAGEAL REFLUX 11/01/2011 LUPE CDL DRIVER, SURESH S 531.30 ACUTE GASTRIC ULCER WITHOUT HEMORRHAGE OR PERFORATION WITHOUT OBSTRUCTION 11/01/2011 LUPE CDL DRIVER, SURESH S 535.50 Gastritis Unspec 11/01/2011 LUPE CDL DRIVER, SURESH S 211.3 BENIGN NEOPLASM OF COLON 11/01/2011 LUPE CDL DRIVER, SURESH S 530.81 ESOPHAGEAL REFLUX 11/01/2011 LUPE CDL DRIVER, SURESH S 531.30 ACUTE GASTRIC ULCER WITHOUT HEMORRHAGE OR PERFORATION WITHOUT OBSTRUCTION 11/01/2011 LUPE CDL DRIVER, SURESH S 535.50 Gastritis Unspec 11/01/2011 LUPE CDL DRIVER, SURESH S 211.3 BENIGN NEOPLASM OF COLON 11/01/2011 LUPE CDL DRIVER, SURESH S 530.81 ESOPHAGEAL REFLUX 11/01/2011 LUPE CDL DRIVER, SURESH S 531.30 ACUTE GASTRIC ULCER WITHOUT HEMORRHAGE OR PERFORATION WITHOUT OBSTRUCTION 11/01/2011 LUPE WOLFN, SURESH S 535.50 Gastritis Unspec 11/01/2011 [facility] 211.3 BENIGN NEOPLASM OF COLON 11/01/2011 FELICITAS LSCS, SYBIL R 530.81 ESOPHAGEAL REFLUX 11/01/2011 FELICITAS LSCS, SYBIL R 531.30 ACUTE GASTRIC ULCER WITHOUT HEMORRHAGE OR PERFORATION WITHOUT OBSTRUCTION 11/01/2011 FELICITAS LSCS, SYBIL R 535.50 Gastritis Unspec 11/01/2011 [facility] DRIVER, SURESH S 211.3 BENIGN NEOPLASM OF COLON 11/01/2011 [facility] DRIVER, SURESH S 530.81 ESOPHAGEAL REFLUX 11/01/2011 [facility] DRIVER, SURESH S 531.30 ACUTE GASTRIC ULCER WITHOUT HEMORRHAGE OR PERFORATION WITHOUT OBSTRUCTION 11/01/2011 [facility] DRIVER, SURESH S 535.50 Gastritis Unspec 11/01/2011 [facility] DRIVER, SURESH S 211.3 BENIGN NEOPLASM OF COLON 11/01/2011 [facility] DRIVER, SURESH S 530.81 ESOPHAGEAL REFLUX 11/01/2011 [facility] DRIVER, SURESH S 531.30 ACUTE GASTRIC ULCER WITHOUT HEMORRHAGE OR PERFORATION WITHOUT OBSTRUCTION 11/01/2011 LUPE WOLFN, SURESH S 535.50 Gastritis Unspec 11/01/2011 MAURICE CDL DRIVER, JAILENE R 211.3 BENIGN NEOPLASM OF COLON 11/01/2011 MAURICE CD[facility] DRIVER, JAILENE R 530.81 ESOPHAGEAL REFLUX 11/01/2011 MAUR[facility] DRIVER, JAILENE R 531.30 ACUTE GASTRIC ULCER WITHOUT HEMORRHAGE OR PERFORATION WITHOUT OBSTRUCTION 11/01/2011 MAUR[facility] CD[facility] DRIVER JAILENE R 535.50 Gastritis Unspec 11/01/2011 PANCHO CD[facility] DRIVER, AIRAM A 211.3 BENIGN NEOPLASM OF COLON 11/01/2011 PANCHO WOLFN, AIRAM A 530.81 ESOPHAGEAL REFLUX 11/01/2011 PANCHO [facility] DRIVER, AIRAM A 531.30 ACUTE GASTRIC ULCER WITHOUT HEMORRHAGE OR PERFORATION WITHOUT OBSTRUCTION 11/01/2011 PAN[facility] DRIVER, AIRAM A 535.50 Gastritis Unspec 11/01/2011 FELICITAS LSCS, SYBIL R 211.3 BENIGN NEOPLASM OF COLON 11/01/2011 FELICITAS LSCS, SYBIL R 530.81 ESOPHAGEAL REFLUX 11/01/2011 FELICITAS LSCS, SYBIL R 531.30 ACUTE GASTRIC ULCER WITHOUT HEMORRHAGE OR PERFORATION WITHOUT OBSTRUCTION 11/01/2011 FELICITAS LSCS, SYBIL R 535.50 Gastritis Unspec 11/01/2011 FELICITAS LSCS, SYBIL R 211.3 BENIGN NEOPLASM OF COLON 11/01/2011 [facility], SYBIL R 530.81 ESOPHAGEAL REFLUX 11/01/2011 [facility], SYBIL R 531.30 ACUTE GASTRIC ULCER WITHOUT HEMORRHAGE OR PERFORATION WITHOUT OBSTRUCTION 11/01/2011 [facility], SYBIL R 535.50 Gastritis Unspec 11/01/2011 NASREEN DELEON APRNIDI A 211.3 BENIGN NEOPLASM OF COLON 11/01/2011 PANCHO WOLFN, AIRAM A 530.81 ESOPHAGEAL REFLUX 11/01/2011 PAN[facility] DRIVER, AIRAM A 531.30 ACUTE GASTRIC ULCER WITHOUT HEMORRHAGE OR PERFORATION WITHOUT OBSTRUCTION 11/01/2011 PANCHO WOLFN, AIRAM A 535.50 Gastritis Unspec 04/24/2012 MATT ANDRADE APRNNDA S 625.9 UNSPECIFIED SYMPTOM ASSOCIATED WITH FEMALE GENITAL ORGANS 04/24/2012 LUPE BROWN SURESH S 719.40 PAIN IN JOINT SITE UNSPECIFIED 04/24/2012 LUPE BROWN SURESH S 780.52 INSOMNIA UNSPECIFIED 04/24/2012 LUPE BROWN SURESH S 625.9 UNSPECIFIED SYMPTOM ASSOCIATED WITH FEMALE GENITAL ORGANS 04/24/2012 MATT ANDRADE APRNNDA S 719.40 PAIN IN JOINT SITE UNSPECIFIED 04/24/2012 LUPE BROWN SURESH S 780.52 INSOMNIA UNSPECIFIED 04/24/2012 ROGERS DO CATIE K 625.9 UNSPECIFIED SYMPTOM ASSOCIATED WITH FEMALE GENITAL ORGANS 04/24/2012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
[2018-10-27] MEDS ORDERED: CATHETER FLUSH 10 ML SYR IV PRN (16:45)
[2018-10-27] MEDS: fentaNYL INJECTION 100 MCG/2 ML AMP IV PRN ×2 (16:56→19:36)
[2018-10-27] MEDS: NS IV 1000 ML 1,000 ML IV SCH (16:56)
[2018-10-27] MEDS: ONDANSETRON 4 MG/2 ML (SDV) Z0FRAN IV PRN (16:56)
[2018-10-27 19:18] VITALS: BP 113/67
[2018-10-27] MEDS: PROMETHAZINE INJ 25 MG/ML (PHENERGAN) AMP IV PRN (19:36)
[2018-10-28 00:11] VITALS: BP 115/67
[2018-10-28] MEDS: NS IV 1000 ML 1,000 ML IV SCH ×2 (00:52→02:14)
[2018-10-28 04:03] VITALS: BP 139/84
[2018-10-28] MEDS: ONDANSETRON 4 MG/2 ML (SDV) Z0FRAN IV PRN ×2 (05:12→11:57)
[2018-10-28 06:47] LABS: BASOPHILS % (AUTO) 0 % (0-10); EOSINOPHILS % (AUTO) 0 % (0-10); HEMATOCRIT 37 % (35-52); HEMOGLOBIN 13.3 G/DL (11.5-16.0); LYMPHOCYTES # (AUTO) 1.3 X 10^3 (1.0-4.0); LYMPHOCYTES % (AUTO) 18 % (12-44); MEAN CORPUSCULAR HEMOGLOBIN 31 PG (25-34); MEAN CORPUSCULAR HGB CONC 36 G/DL (32-36); MEAN CORPUSCULAR VOLUME 87 FL (80-99); MEAN PLATELET VOLUME 8.7 FL (7.4-10.4); MONOCYTES # (AUTO) 0.4 X 10^3 (0.0-1.0); MONOCYTES % (AUTO) 5 % (0-12); NEUTROPHILS # (AUTO) 5.5 X 10^3 (1.8-7.8); NEUTROPHILS % (AUTO) 77 % (42-75); PLATELET COUNT 349 10^3/uL (130-400); WHITE BLOOD COUNT 7.1 10^3/uL (4.3-11.0)
[2018-10-28] MEDS: fentaNYL INJECTION 100 MCG/2 ML AMP IV PRN ×2 (06:48→11:58)
[2018-10-28 07:04] LABS: ALANINE AMINOTRANSFERASE 17 U/L (0-55); ALBUMIN 3.9 GM/DL (3.2-4.5); ALKALINE PHOSPHATASE 59 U/L (40-136); BILIRUBIN,TOTAL 0.6 MG/DL (0.1-1.0); BUN/CREATININE RATIO 18; CALCIUM 9.5 MG/DL (8.5-10.1); CARBON DIOXIDE 21 MMOL/L (21-32); CHLORIDE 103 MMOL/L (98-107); CHOLESTEROL 256 MG/DL (< 200); CREATININE SERUM 0.68 MG/DL (0.60-1.30); GFR ESTIMATED > 60; GLUCOSE 109 MG/DL (70-105); HDL CHOLESTEROL 43 MG/DL (40-60); POTASSIUM 3.3 MMOL/L (3.6-5.0); SODIUM 136 MMOL/L (135-145); TOTAL PROTEIN 6.9 GM/DL (6.4-8.2); TRIGLYCERIDES 121 MG/DL (<150); VLDL CHOLESTEROL 24 MG/DL (5-40)
[2018-10-28 07:50] VITALS: BP 127/71
[2018-10-28] MEDS: PROMETHAZINE INJ 25 MG/ML (PHENERGAN) AMP IV PRN (07:51)
[2018-10-28] MEDS ORDERED: MIDAZOLAM 2 MG/2 ML (VERSED) VIAL ONE (08:42)
[2018-10-28] MEDS ORDERED: PROPOFOL INJECTION 50 ML IV ONE (08:43)
--- NOTE | 2018-10-28 08:50 | NUR ---
LIZZY RN HERE TO TRANSPORT PATIENT TO EGD. PATIENT LEFT ROOM VIA WHEELCHAIR.
[2018-10-28] MEDS ORDERED: LACTATED RINGERS 1,000 ML IV ONE (08:53)
--- NOTE | 2018-10-28 10:05 | NUR ---
PATIENT BACK IN ROOM FROM PROCEDURE. STABLE ON ROOM AIR. NO COMPLAINTS OF PAIN AT THIS TIME.
--- NOTE | 2018-10-28 10:25 | Progress Note-Post Operative ---
Post-Operative Progess Note Surgeon (s)/Software Controls Engineer (s) Surgeon PRERNA RICO DO Software Controls Engineer: none Pre-Operative Diagnosis upper abdominal pain, gastritis, colitis Post-Operative Diagnosis Gastritis, Esophagitis, Hiatal hernia Procedure & Operative Findings Date of Procedure 10/28/18 Procedure Performed/Findings EGD with bx Anesthesia Type IV sedation by AIR TRAFFIC SYSTEMS TECHNICIAN Estimated Blood Loss Estimated blood loss (mL): scant Specimens/Packing Specimens Removed antral bx body of stomach bx GE jxn bx PRERNA RICO DO October 28, 2018 10:25
[2018-10-28 12:30] VITALS: BP 118/72
[2018-10-28] MEDS ORDERED: OMEP20CA12 PO (13:35)
--- NOTE | 2018-10-28 13:40 | Discharge Instructions ---
Discharge [facility] Discharge Medications New, Converted or Re-Newed RX: [facility] Changed Medications: Omeprazole (Omeprazole) 20 Mg Capsule.dr 40 MG PO DAILY, #30 CAP 0 Refills (Changed from: 20 MG; Removed Reason; Refills: ) Continued Medications: Fluticasone Propionate (Flonase Allergy Relief) 9.9 Ml [place].susp 2 SPRAY NS DAILY PRN for ALLERGIES, EACH Levothyroxine Sodium (Levothyroxine Sodium) 50 Mcg Tablet 50 MCG PO DAILY, TAB Lisinopril/Hydrochlorothiazide (Lisinopril-Hctz 20-25 mg Tab) 1 Each Tablet 1 TAB PO DAILY, TAB Loratadine (Claritin) 10 Mg Tablet 10 MG PO DAILY, TAB Ondansetron (Ondansetron Odt) 4 Mg Tab.rapdis 4 MG PO Q4H PRN for NAUSEA/VOMITING-1ST LINE, TAB Discontinued Medications: Ibuprofen (Advil) 200 Mg Tablet 600-800 MG PO TID PRN for PAIN-MILD, TAB Patient Instructions Goal/Follow Up Appt: Follow up with Dr. Boateng as scheduled 10/31/18 at 11:20am Activity & Diet Discharge Diet: Low Fat/Low Cholesterol (bland diet) CATIE ROGERS DO October 28, 2018 13:40
--- NOTE | 2018-10-28 13:50 | OPERATIVE REPORT ---
DATE OF SERVICE: PREOPERATIVE DIAGNOSES: Abdominal pain, heartburn symptoms, colitis. POSTOPERATIVE DIAGNOSES: Gastritis, hiatal hernia, esophagitis. PROCEDURE: EGD with biopsy. SURGEON: Ramesh Khan DO. REBAR FABRICATOR: None. ANESTHESIA: IV sedation by COLLECTION SYSTEMS CONSULTANT. SPECIMEN: One biopsy from the antrum, one biopsy from the body of stomach, one biopsy from the GE junction. BLOOD LOSS: Scant. FLUIDS: Per anesthesia. POSTOPERATIVE CONDITION: Stable. INDICATION FOR PROCEDURE: The patient is a 53-year-old female who has been having abdominal pain, this has mostly been upper with some heartburn symptoms. She also had a CAT scan, which showed colitis and needs a workup. FINDINGS: The patient had inflammation of the stomach as well as a large hiatal hernia and some esophagitis. PROCEDURE NOTE: After informed consent was obtained, the patient was brought to the endoscopy suite, placed in the bed in left lateral decubitus position. She was administered IV sedation by the COLLECTION SYSTEMS CONSULTANT who then monitored her vitals the entire time, heart rate, blood pressure and pulse ox and the scope was inserted down the mouth through the esophagus into the stomach, pushed into the duodenum, took a picture, duodenum looked fine. Pulled back in the antrum, looked like there is some gastritis in the antrum as well as in the body of stomach, like to do a biopsy of the antrum and then pulled back and did a biopsy of the body of the stomach, retroflexed the scope, saw hiatal hernia, took a picture of this and then pulled the scope into the esophagus at the GE junction, looked like there is little bit esophagitis and creeping up of the Z-line, like to do a biopsy at the GE junction, good biopsy obtained and then pulled the scope up the esophagus, did not see any other pathology in and out the mouth. The patient tolerated the procedure and recovered in endoscopy suite. Job ID: [id number] DocumentID: [id number] Dictated Date: 10/28/2018 09:21:29 Part Time Date: 10/28/2018 13:50:31 Dictated By: RAMESH KHAN DO
--- NOTE | 2018-10-28 13:54 | Short Stay Summary ---
History of Present Illness History of Present Illness Reason for visit/HPI This is a 53 yo female who has reported upper abdominal and lower chest pain for the past couple of months. Pain has worsened and she subsequently presented to the ER. Pt has been seen at [facility] for abdominal pain as well as chest pain. Most recent EKG was normal. Pt has been seen by Dr. Khan in consultation who performed and EGD this am showing gastritis, esophagitis and a hiatal hernia. He recommends considering a colonoscopy as OP. Date of Admission October 27, 2018 at 13:55 Date of Discharge October 28, 2018 Time Seen by Provider: 07:05 Attending Physician Joy Boateng MD Admitting Physician Consult Allergies and Home Medications Allergies Coded Allergies: Penicillins (Unverified Allergy, Mild, hives, 01/28/09) Home Medications Fluticasone Propionate 9.9 Ml [place].susp, 2 SPRAY NS DAILY PRN for ALLERGIES, (Reported) Levothyroxine Sodium 50 Mcg Tablet, 50 MCG PO DAILY, (Reported) Lisinopril/Hydrochlorothiazide 1 Each Tablet, 1 TAB PO DAILY, (Reported) Loratadine 10 Mg Tablet, 10 MG PO DAILY, (Reported) Omeprazole 20 Mg Capsule.dr, 40 MG PO DAILY Prescribed by: CATIE ROGERS on 10/28/18 1335 Ondansetron 4 Mg Tab.rapdis, 4 MG PO Q4H PRN for NAUSEA/VOMITING-1ST LINE, (Reported) Patient Home Medication List Home Medication List Reviewed: Yes Past Dzbfzll-Wovezp-Tfsadf Hx Patient Social History Alcohol Use: Denies Use Recreational Drug Use: Yes (THC) Smoking Status: Never a Smoker 2nd Hand Smoke Exposure: No Recent Foreign Travel: No Contact w/other who traveled: No Recent Hopitalizations: No Recent Infectious Disease Expo: No Seasonal Allergies Seasonal Allergies: Yes Surgeries Yes Breast, Gallbladder Respiratory No Cardiovascular Yes High Cholesterol, Hypertension Neurological Yes Headaches /Migraines Reproductive System Hx Reproductive Disorders: No Sexually Transmitted Disease: No Female Reproductive Disorders: 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 History: Menopausal Gastrointestinal Yes Gastroesophageal Reflux, Chronic Constipation, Ulcer, Gall Bladder Disease, Irritable Bowel Musculoskeletal Yes (CHRONIC GENERALIZED PAIN) Arthritis Endocrine History of Endocrine Disorders: No HEENT HEENT Disorders: Glaucoma Hearing Impairment: Denies Cancer Yes Colon Psychosocial History of Psychiatric Problem: Yes Behavioral Health Disorders: Sleep Difficulties, Anxiety, Bipolar, Depression Integumentary History of Skin or Integumenta: No Blood Transfusions History of Blood Disorders: No Adverse Reaction to a Blood Tr: No Family Medical History Significant Family History: Heart Disease (father), Cancer (father of colon cancer), Diabetes (father) Review of Systems Constitutional: see HPI Physical Exam Vital Signs Vital Signs - First Documented 10/27/18 10/27/18 10/28/18 10:45 15:58 09:30 Temp 98.8 Pulse 85 Resp 20 B/P (MAP) 125/91 (102) Pulse Ox 99 O2 Delivery Room Air O2 Flow Rate 9 Capillary Refill : Less Than 3 Seconds Height, Weight, BMI Height: 5'2.00" Weight: 214lbs. 0.0oz. 97.455406fb; 39.1 BMI Method:Stated General Appearance: No Apparent Distress, WD/WN HEENT: PERRL/EOMI Respiratory: Lungs Clear, Normal Breath Sounds Cardiovascular: Regular Rate, Rhythm, No Edema Gastrointestinal: Soft; No Guarding, No Rebound; Tenderness (epigastric region) Neurologic/Psychiatric: Alert, Oriented x3, Normal Mood/Affect Skin: Normal Color, Warm/Dry Clinical Quality Measures DVT/VTE Risk/Contraindication: Risk Factor Score Per Nursin RFS Level Per Nursing on Admit: 4+=Very High Short Stay Diagnosis Discharge Diagnosis-Short Stay Admission Diagnosis: 1. Epigastric abdominal pain Final Discharge Diagnosis: 1. Epigastric abdominal pain secondary to esophagitis and gastritis 2. Hiatal hernia 3. Hyperlipidemia Conclusion Labs Laboratory Tests 10/28/18 06:27: White Blood Count 7.1, Red Blood Count 4.32L, Hemoglobin 13.3, Hematocrit 37, Mean Corpuscular Volume 87, Mean Corpuscular Hemoglobin 31, Mean Corpuscular Hemoglobin Concent 36, Red Cell Distribution Width 13.0, Platelet Count 349, Mean Platelet Volume 8.7, Neutrophils (%) (Auto) 77H, Lymphocytes (%) (Auto) 18, Monocytes (%) (Auto) 5, Eosinophils (%) (Auto) 0, Basophils (%) (Auto) 0, Neutrophils # (Auto) 5.5, Lymphocytes # (Auto) 1.3, Monocytes # (Auto) 0.4, Eosinophils # (Auto) 0.0, Basophils # (Auto) 0.0, Sodium Level 136, Potassium Level 3.3L, Chloride Level 103, Carbon Dioxide Level 21, Anion Gap 12, Blood Urea Nitrogen 12, Creatinine 0.68, Estimat Glomerular Filtration Rate > 60, BUN/Creatinine Ratio 18, Glucose Level 109H, Calcium Level 9.5, Corrected Calcium 9.6, Total Bilirubin 0.6, Aspartate Amino Transf (AST/SGOT) 11, Alanine Aminotransferase (ALT/SGPT) 17, Alkaline Phosphatase 59, Total Protein 6.9, Albumin 3.9, Triglycerides Level 121, Cholesterol Level 256H, LDL Cholesterol Direct 190H, VLDL Cholesterol 24, HDL Cholesterol 43 Conclusion/Plan 1. Epigastric abdominal pain secondary to esophagitis and gastritis - s/p EGD 10/28/18 with the above findings - increase omeprazole from 20mg to 40mg daily - new RX sent to [facility]. - f/u with Dr. Khan as OP 2. Hiatal hernia 3. Hyperlipidemia - TC 256, LDL 190, HDL 43, TG 121 - recommend pt start statin due to LDL of 190; will defer to f/u appt with Dr. Boateng due to current esophagitis/gastritis - allow that to resolve before starting new med. F/u with Dr. Boateng - already has appt scheduled 10/31/18 at 11:20. Copy Copies To 1: JOY BOATENG MD, LINDA K DO October 28, 2018 13:54
[2018-10-28 14:32] VITALS: BP 118/72
--- NOTE | 2018-10-28 14:32 | NUR ---
LUCERO SPANN Marquez demonstrates understanding of discharge instructions and accurately returns instructions upon questioning. Copy of Post-Discharge Instructions and Medication Discharge Instructions given to PATIENT. LUCERO SPANN is able to manage continuing needs after discharge. Patients belongings returned to [facility]. Skin dry and intact; no breakdown noted. Patient discharged from [facility]1 on at 1432. LUCERO SPANN left floor via WHEELCHAIR, accompanied by STAFF AND ADULT CHILD.
== END 2018-10-28 13:45 | disposition home or self-care (01) ==
LOC: EDUNIT# 10:42 → ER 10:43 → 4TH 13:55 → UNDOADMOB 13:55 → 4TH 16:00 → UNDODISOB 10-28 14:32
PROVIDERS: ADMIT Family Medicine; ATTEND Family Medicine
DX: K29.70 Gastritis, unspecified, without bleeding (principal); K44.9 Diaphragmatic hernia without obstruction or gangrene; K21.0 Gastro-esophageal reflux disease with esophagitis; Z86.010 Personal history of colon polyps; Z90.49 Acquired absence of other specified parts of digestive tract; E78.00 Pure hypercholesterolemia, unspecified; E78.5 Hyperlipidemia, unspecified; I10 Essential (primary) hypertension; G43.909 Migraine, unspecified, not intractable, without status migrainosus; K58.1 Irritable bowel syndrome with constipation; M19.91 Primary osteoarthritis, unspecified site; H40.9 Unspecified glaucoma; F41.9 Anxiety disorder, unspecified; F31.9 Bipolar disorder, unspecified; E87.6 Hypokalemia; E87.1 Hypo-osmolality and hyponatremia; Z85.038 Personal history of other malignant neoplasm of large intestine; Z79.899 Other long term (current) drug therapy; Z88.0 Allergy status to penicillin; Z80.0 Family history of malignant neoplasm of digestive organs
CPT/HCPCS: 36415; 71045; 74177; 80053; 80061; 81000; 82150; 83690; 83735; 83874; 84484; 85025; 85610; 85730; 87081; 93005; 93041; 94760; 96361; 96374; 96375; G0378

== ENCOUNTER 2019-08-15 08:34 | Emergency (ER) | payer SELFPAY ==
[~2019-08-15] VITALS: Ht 160 cm; Wt 97.9 kg
[~2019-08-15 08:34] MED LIST changes: +FLUT9.9S NS; +IBUP-30 PO; +LEVO50TA6 PO; +LISI1TAB26 PO; +LORA10TA76 PO; -OMEP20CA12; +OMEP20CA18; +OMEP20CA18 PO; +ONDA4TAB11 PO
--- NOTE | 2019-08-15 09:21 | ED GU-Female ---
General Chief Complaint: Abdominal/GI Problems Stated Complaint: LOWER ABD/BACK PAIN Nursing Triage Note: ARRIVED VIA AMB TO ROOM 06. COMPLAINS OF LOWER ABD/BACK PAIN ALONG WITH FEMALE IRRITATION X1 WEEK. Nursing Sepsis Screen: No Definite Risk History of Present Illness Date Seen by Provider: Aug 15, 2019 Time Seen by Provider: 09:21 Initial Comments 54-year-old female presents with a week of suprapubic pain along with lower back cramping with some dysuria. She reports his been going on for about a week. Patient reports that she gets some occasional chills. She denies any nausea or vomiting. Patient denies any vaginal discharge or bleeding. Patient reports she's had it similar symptoms in the past and reports that "she had low potassium" when it happened. She reports she's taking potassium but would like to have it checked. Patient denies any fever. Allergies and Home Medications Allergies Coded Allergies: Penicillins (Unverified Allergy, Mild, hives, 01/28/09) Home Medications Fluticasone Propionate 9.9 Ml [place].susp, 2 SPRAY NS DAILY PRN for ALLERGIES, (Reported) Levothyroxine Sodium 50 Mcg Tablet, 50 MCG PO DAILY, (Reported) Lisinopril/Hydrochlorothiazide 1 Each Tablet, 1 TAB PO DAILY, (Reported) Loratadine 10 Mg Tablet, 10 MG PO DAILY, (Reported) Omeprazole 20 Mg Capsule.dr, 40 MG PO DAILY Prescribed by: CATIE ROGERS on 10/28/18 1335 Ondansetron 4 Mg Tab.rapdis, 4 MG PO Q4H PRN for NAUSEA/VOMITING-1ST LINE, (Reported) Patient Home Medication List Home Medication List Reviewed: Yes Review of Systems Review of Systems Constitutional: chills; No dizziness, No fever; malaise Respiratory: no symptoms reported Cardiovascular: no symptoms reported Gastrointestinal: no symptoms reported Genitourinary: burning; denies discharge; dysuria, pain (suprapubic) Musculoskeletal: back pain (bilateral lower back) Skin: no symptoms reported Psychiatric/Neurological: No Symptoms Reported Endocrine: No Symptoms Reported Past Bpjnwex-Ktveil-Gsymnj Hx Past Med/Social Hx: Reviewed Nursing Past Med/Soc Hx Patient Social History Alcohol Use: Denies Use Recreational Drug Use: No Smoking Status: Never a Smoker 2nd Hand Smoke Exposure: No Recent Foreign Travel: No Contact w/Someone Who Travel: No Recent Infectious Disease Expo: No Recent Hopitalizations: No Seasonal Allergies Seasonal Allergies: Yes Past Medical History Surgeries: Yes Breast, Gallbladder Respiratory: No Cardiac: Yes High Cholesterol, Hypertension Neurological: Yes Headaches /Migraines Reproductive Disorders: No 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 Sexually Transmitted Disease: No Gastrointestinal: Yes Gastroesophageal Reflux, Chronic Constipation, Ulcer, Gall Bladder Disease, Irritable Bowel Musculoskeletal: Yes (CHRONIC GENERALIZED PAIN) Arthritis Endocrine: No Glaucoma Hearing Impairment: Denies Cancer: Yes Colon Psychosocial: Yes Sleep Difficulties, Anxiety, Bipolar, Depression Integumentary: No Blood Disorders: No Adverse Reaction/Blood Tranf: No Family Medical History Heart Disease, Cancer, Diabetes Physical Exam Vital Signs Vital Signs - First Documented 08/15/19 09:10 Temp 36.6 Pulse 71 Resp 16 B/P (MAP) 130/90 (103) Pulse Ox 100 O2 Delivery Room Air Capillary Refill : Less Than 3 Seconds Height, Weight, BMI Height: 5'2.00" Weight: 214lbs. 0.0oz. 97.893950re; 38.00 BMI Method:Stated General Appearance: WD/WN, no apparent distress Cardiovascular: normal peripheral pulses, regular rate, rhythm Gastrointestinal: soft (suprapubic) Back: other (bilateral lower back tenderness no midline tenderness) Extremities: normal range of motion, non-tender, normal inspection Neurologic/Psychiatric: alert, normal mood/affect, oriented x 3 Skin: normal color, warm/dry Progress/Results/Core Measures Suspected Sepsis Recent Fever Within 48 Hours: No Infection Criteria Present: None New/Unexplained Altered Menta: No Sepsis Screen: No Definite Risk SIRS Temperature: Pulse: 71 Respiratory Rate: 16 Laboratory Tests 08/15/19 09:54: White Blood Count 6.7 Blood Pressure 130 /90 Mean: 103 Laboratory Tests 08/15/19 09:54: Creatinine 0.80, Platelet Count 356, Total Bilirubin 0.3 Results/Orders Lab Results Laboratory Tests Test 08/15/19 09:14 08/15/19 09:54 Range/Units Urine Color YELLOW Urine Clarity CLEAR Urine pH 6.5 5-9 Urine Specific [place] 1.015 L 1.016-1.022 Urine Protein NEGATIVE NEGATIVE Urine Glucose (UA) NEGATIVE NEGATIVE Urine Ketones NEGATIVE NEGATIVE Urine Nitrite NEGATIVE NEGATIVE Urine Bilirubin NEGATIVE NEGATIVE Urine Urobilinogen 0.2 < = 1.0 MG/DL Urine Leukocyte Esterase NEGATIVE NEGATIVE Urine RBC (Auto) NEGATIVE NEGATIVE Urine RBC NONE /HPF Urine WBC RARE /HPF Urine Squamous Epithelial Cells 2-5 /HPF Urine Crystals NONE /LPF Urine Bacteria TRACE /HPF Urine Casts NONE /LPF Urine Mucus NEGATIVE /LPF Urine Culture Indicated NO White Blood Count 6.7 4.3-11.0 10^3/uL Red Blood Count 5.22 4.35-5.85 10^6/uL Hemoglobin 15.5 11.5-16.0 G/DL Hematocrit 44 35-52 % Mean Corpuscular Volume 85 80-99 FL Mean Corpuscular Hemoglobin 30 25-34 PG Mean Corpuscular Hemoglobin Concent 35 32-36 G/DL Red Cell Distribution Width 13.3 10.0-14.5 % Platelet Count 356 130-400 10^3/uL Mean Platelet Volume 8.3 7.4-10.4 FL Neutrophils (%) (Auto) 57 42-75 % Lymphocytes (%) (Auto) 34 12-44 % Monocytes (%) (Auto) 8 0-12 % Eosinophils (%) (Auto) 0 0-10 % Basophils (%) (Auto) 1 0-10 % Neutrophils # (Auto) 3.8 1.8-7.8 X 10^3 Lymphocytes # (Auto) 2.3 1.0-4.0 X 10^3 Monocytes # (Auto) 0.5 0.0-1.0 X 10^3 Eosinophils # (Auto) 0.0 0.0-0.3 10^3/uL Basophils # (Auto) 0.1 0.0-0.1 10^3/uL Sodium Level 134 L 135-145 MMOL/L Potassium Level 3.8 3.6-5.0 MMOL/L Chloride Level 99 98-107 MMOL/L Carbon Dioxide Level 28 21-32 MMOL/L Anion Gap 7 5-14 MMOL/L Blood Urea Nitrogen 10 7-18 MG/DL Creatinine 0.80 0.60-1.30 MG/DL Estimat Glomerular Filtration Rate > 60 BUN/Creatinine Ratio 13 Glucose Level 100 70-105 MG/DL Calcium Level 9.8 8.5-10.1 MG/DL Corrected Calcium 9.5 8.5-10.1 MG/DL Total Bilirubin 0.3 0.1-1.0 MG/DL Aspartate Amino Transf (AST/SGOT) 14 5-34 U/L Alanine Aminotransferase (ALT/SGPT) 11 0-55 U/L Alkaline Phosphatase 74 40-136 U/L Total Protein 7.7 6.4-8.2 GM/DL Albumin 4.4 3.2-4.5 GM/DL My Orders Orders - OLIVERIO CHRISTENSEN DO Ua Culture If Indicated (08/15/19 09:21) Cbc With Automated Diff (08/15/19 09:26) Comprehensive Metabolic Panel (08/15/19 09:26) Phenazopyridine Tablet (Pyridium Tablet) (08/15/19 09:30) Medications Given in ED Current Medications Medications Dose Ordered Sig/Tamia Route Start Time Stop Time Status Last Admin Dose Admin Phenazopyridine HCl 100 mg ONCE ONCE PO 08/15/19 09:30 08/15/19 09:31 DC 08/15/19 09:37 100 MG Vital Signs/I&O 08/15/19 08/15/19 09:10 10:48 Temp 36.6 36.6 Pulse 71 71 Resp 16 16 B/P (MAP) 130/90 (103) 130/90 (103) Pulse Ox 100 100 O2 Delivery Room Air Capillary Refill : Less Than 3 Seconds Blood Pressure Mean: 103 Progress Note : Time: 10:37 Progress Note Patient with no acute findings on labs or urinalysis. Patient was offered a pelvic exam for further evaluation of her dysuria and pelvic irritation. Patient declined exam. Patient to Festus's that she would prefer to have it done by her primary care provider and will follow-up with them. I did have a long discussion with her regarding causes of dysuria and irritation. Patient should follow-up with her primary for a well woman and further evaluation. She will be discharged home in stable condition. Departure Impression Primary Impression: Dysuria Disposition: HOME, SELF-CARE Condition: Stable Departure-Patient Inst. Referrals: [facility] (PCP) Primary Care Physician Patient Instructions: Dysuria, Adult (DC), Vaginitis Add. Discharge Instructions: Follow-up with your primary care provider or OB for a well woman checked Emergency department focuses on treating and ruling out life-threatening diseases. Whenever possible, a diagnosis is given. However, most patients are given an impression based on their history, physical exam, and workup during your brief time in the ER. Information about probable diagnosis and other educational material has been provided. Please take the time to read and understand this information. It is very important that you follow up with a physician as discussed during the visit today. Failure to adhere to your follow-up instructions may lead to severe disability, injury, or so please make sure to keep your appointments or obtain one as requested. Please keep in mind the emergency department is not designed to your primary care or "family doctor" and nonurgent issues are best evaluated by an outpatient physician All discharge instructions reviewed with patient and/or family. Voiced understanding. OLIVERIO CHRISTENSEN DO Aug 15, 2019 09:21
[2019-08-15] MEDS ORDERED: PHENAZOPYRIDINE 100 MG (PYRIDIUM) TABLET PO ONE (09:30)
[2019-08-15 09:37] LABS: BILIRUBIN,URINE NEGATIVE (NEGATIVE); CLARITY,URINE CLEAR; COLOR,URINE YELLOW; GLUCOSE, URINE (UA) NEGATIVE (NEGATIVE); KETONES,URINE NEGATIVE (NEGATIVE); LEUKOCYTE ESTERASE ,URINE NEGATIVE (NEGATIVE); NITRITE,URINE NEGATIVE (NEGATIVE); PH,URINE 6.5 (5-9); PROTEIN,URINE NEGATIVE (NEGATIVE)
[2019-08-15 09:43] LABS: BACTERIA,URINE TRACE /HPF; WBC,URINE RARE /HPF
--- NOTE | 2019-08-15 09:47 | NUR ---
LAB CONTACTED FOR BLOOD DRAW.
--- NOTE | 2019-08-15 09:54 | NUR ---
LAB IN ROOM AT THIS TIME.
[2019-08-15 10:01] LABS: BASOPHILS # (AUTO) 0.1 10^3/uL (0.0-0.1); BASOPHILS % (AUTO) 1 % (0-10); EOSINOPHILS % (AUTO) 0 % (0-10); HEMATOCRIT 44 % (35-52); HEMOGLOBIN 15.5 G/DL (11.5-16.0); LYMPHOCYTES # (AUTO) 2.3 X 10^3 (1.0-4.0); LYMPHOCYTES % (AUTO) 34 % (12-44); MEAN CORPUSCULAR HEMOGLOBIN 30 PG (25-34); MEAN CORPUSCULAR HGB CONC 35 G/DL (32-36); MEAN CORPUSCULAR VOLUME 85 FL (80-99); MEAN PLATELET VOLUME 8.3 FL (7.4-10.4); MONOCYTES # (AUTO) 0.5 X 10^3 (0.0-1.0); MONOCYTES % (AUTO) 8 % (0-12); NEUTROPHILS # (AUTO) 3.8 X 10^3 (1.8-7.8); NEUTROPHILS % (AUTO) 57 % (42-75); PLATELET COUNT 356 10^3/uL (130-400); RED CELL DISTRIBUTION WIDTH 13.3 % (10.0-14.5); WHITE BLOOD COUNT 6.7 10^3/uL (4.3-11.0)
[2019-08-15 10:23] LABS: ALANINE AMINOTRANSFERASE 11 U/L (0-55); ALBUMIN 4.4 GM/DL (3.2-4.5); ALKALINE PHOSPHATASE 74 U/L (40-136); BILIRUBIN,TOTAL 0.3 MG/DL (0.1-1.0); BUN/CREATININE RATIO 13; CALCIUM 9.8 MG/DL (8.5-10.1); CARBON DIOXIDE 28 MMOL/L (21-32); CHLORIDE 99 MMOL/L (98-107); GFR ESTIMATED > 60; GLUCOSE 100 MG/DL (70-105); POTASSIUM 3.8 MMOL/L (3.6-5.0); SODIUM 134 MMOL/L (135-145); TOTAL PROTEIN 7.7 GM/DL (6.4-8.2)
[2019-08-15 10:48] VITALS: BP 130/90
== END 2019-08-15 10:48 | disposition home or self-care (01) ==
LOC: EDUNIT# 08:34 → ER 08:36
DX: R30.0 Dysuria (principal); I10 Essential (primary) hypertension; K21.9 Gastro-esophageal reflux disease without esophagitis; Z88.0 Allergy status to penicillin; Z79.51 Long term (current) use of inhaled steroids; Z85.038 Personal history of other malignant neoplasm of large intestine; Z82.49 Family history of ischemic heart disease and other diseases of the circulatory system
CPT/HCPCS: 36415; 80053; 81000; 85025; 99282

== ENCOUNTER → 2019-11-14 | Outpatient (CLI) | payer SELFPAY | LOC: RAD 12:34 | PROVIDERS: ATTEND Family Medicine | DX: E04.2 Nontoxic multinodular goiter (principal) ==

== ENCOUNTER 2019-12-24 17:12 | Emergency (ER) | payer SELFPAY ==
[~2019-12-24] VITALS: Ht 154 cm; Wt 101.0 kg
--- NOTE | 2019-12-24 17:26 | ED GU-Female ---
General Chief Complaint: Abdominal/GI Problems Stated Complaint: STOMACH/PELVIC/BACK PAIN, VOMITING Source: patient Exam Limitations: no limitations History of Present Illness Date Seen by Provider: Dec 24, 2019 Time Seen by Provider: 17:25 Initial Comments To ER by private vehicle after leaving primary care's office with reports of l eft-sided suprapubic abdominal pain sharp shooting in nature intermittently for 4 months. It seems to recur after sexual intercourse with her one partner. She's had nausea and vomiting as well. Timing/Duration: constant, intermittent Severity/Quality: moderate, sharp Location: LLQ, suprapubic Activities at Onset: none Prior Genitourinary Problems: none Associated Symptoms: denies symptoms, nausea/vomiting Allergies and Home Medications Allergies Coded Allergies: Penicillins (Unverified Allergy, Mild, hives, 01/28/09) Home Medications Fluticasone Propionate 9.9 Ml [place].susp, 2 SPRAY NS DAILY PRN for ALLERGIES, (Reported) Levothyroxine Sodium 50 Mcg Tablet, 50 MCG PO DAILY, (Reported) Lisinopril/Hydrochlorothiazide 1 Each Tablet, 1 TAB PO DAILY, (Reported) Loratadine 10 Mg Tablet, 10 MG PO DAILY, (Reported) Omeprazole 20 Mg Capsule.dr, 40 MG PO DAILY Prescribed by: CATIE ROGERS on 10/28/18 1335 Ondansetron 4 Mg Tab.rapdis, 4 MG PO Q4H PRN for NAUSEA/VOMITING-1ST LINE, (Reported) Patient Home Medication List Home Medication List Reviewed: Yes Review of Systems Review of Systems Constitutional: see HPI, chills; No fever EENTM: see HPI Respiratory: no symptoms reported Gastrointestinal: abdominal pain, nausea, vomiting Genitourinary: see HPI; denies discharge Musculoskeletal: no symptoms reported Skin: no symptoms reported Psychiatric/Neurological: No Symptoms Reported Endocrine: No Symptoms Reported Past Uflolwm-Loniwq-Dfplaa Hx Patient Social History 2nd Hand Smoke Exposure: No Recent Foreign Travel: No Contact w/Someone Who Travel: No Recent Hopitalizations: No Seasonal Allergies Seasonal Allergies: Yes Past Medical History Surgeries: Yes Breast, Gallbladder Respiratory: No Cardiac: Yes High Cholesterol, Hypertension Neurological: Yes Headaches /Migraines Reproductive Disorders: No Female 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 Sexually Transmitted Disease: No Gastrointestinal: Yes Gastroesophageal Reflux, Chronic Constipation, Ulcer, Gall Bladder Disease, Irritable Bowel Musculoskeletal: Yes (CHRONIC GENERALIZED PAIN) Arthritis Endocrine: No Glaucoma Hearing Impairment: Denies Cancer: Yes Colon Psychosocial: Yes Sleep Difficulties, Anxiety, Bipolar, Depression Integumentary: No Blood Disorders: No Adverse Reaction/Blood Tranf: No Family Medical History Heart Disease, Cancer, Diabetes Physical Exam Vital Signs Vital Signs - First Documented 12/24/19 17:15 Temp 36.7 Pulse 74 Resp 16 B/P (MAP) 127/87 (100) Pulse Ox 98 O2 Delivery Room Air Capillary Refill : Height, Weight, BMI Height: 5'2.00" Weight: 214lbs. 0.0oz. 97.347236mx; 38.00 BMI Method:Stated General Appearance: WD/WN, no apparent distress, obese Neck: non-tender, full range of motion Respiratory: no respiratory distress, no accessory muscle use Gastrointestinal: normal bowel sounds, soft, tenderness Pelvic: normal external exam; No discharge, No lesions; tender w/ cervical motion (mild; pelvic done with [employer] PCT at bedside. ) Extremities: normal range of motion, non-tender Neurologic/Psychiatric: alert, normal mood/affect, oriented x 3 Skin: normal color, warm/dry Progress/Results/Core Measures Suspected Sepsis SIRS Temperature: Pulse: Respiratory Rate: Laboratory Tests 12/24/19 17:20: White Blood Count 9.8 Blood Pressure / Mean: Laboratory Tests 12/24/19 17:20: Creatinine 0.80, Platelet Count 392, Total Bilirubin 0.4 Results/Orders Lab Results Laboratory Tests Test 12/24/19 17:20 12/24/19 18:18 Range/Units White Blood Count 9.8 4.3-11.0 10^3/uL Red Blood Count 5.02 4.35-5.85 10^6/uL Hemoglobin 15.3 11.5-16.0 G/DL Hematocrit 43 35-52 % Mean Corpuscular Volume 86 80-99 FL Mean Corpuscular Hemoglobin 31 25-34 PG Mean Corpuscular Hemoglobin Concent 36 32-36 G/DL Red Cell Distribution Width 13.2 10.0-14.5 % Platelet Count 392 130-400 10^3/uL Mean Platelet Volume 8.8 7.4-10.4 FL Neutrophils (%) (Auto) 67 42-75 % Lymphocytes (%) (Auto) 25 12-44 % Monocytes (%) (Auto) 8 0-12 % Eosinophils (%) (Auto) 0 0-10 % Basophils (%) (Auto) 0 0-10 % Neutrophils # (Auto) 6.6 1.8-7.8 X 10^3 Lymphocytes # (Auto) 2.5 1.0-4.0 X 10^3 Monocytes # (Auto) 0.8 0.0-1.0 X 10^3 Eosinophils # (Auto) 0.0 0.0-0.3 10^3/uL Basophils # (Auto) 0.0 0.0-0.1 10^3/uL Urine Color YELLOW Urine Clarity CLEAR Urine pH 7.0 5-9 Urine Specific [place] 1.015 L 1.016-1.022 Urine Protein NEGATIVE NEGATIVE Urine Glucose (UA) NEGATIVE NEGATIVE Urine Ketones NEGATIVE NEGATIVE Urine Nitrite NEGATIVE NEGATIVE Urine Bilirubin NEGATIVE NEGATIVE Urine Urobilinogen 0.2 < = 1.0 MG/DL Urine Leukocyte Esterase NEGATIVE NEGATIVE Urine RBC (Auto) NEGATIVE NEGATIVE Urine RBC NONE /HPF Urine WBC 0-2 /HPF Urine Squamous Epithelial Cells 2-5 /HPF Urine Crystals NONE /LPF Urine Bacteria TRACE /HPF Urine Casts NONE /LPF Urine Mucus NEGATIVE /LPF Urine Culture Indicated NO Sodium Level 136 135-145 MMOL/L Potassium Level 3.2 L 3.6-5.0 MMOL/L Chloride Level 97 L 98-107 MMOL/L Carbon Dioxide Level 25 21-32 MMOL/L Anion Gap 14 5-14 MMOL/L Blood Urea Nitrogen 12 7-18 MG/DL Creatinine 0.80 0.60-1.30 MG/DL Estimat Glomerular Filtration Rate > 60 BUN/Creatinine Ratio 15 Glucose Level 101 70-105 MG/DL Calcium Level 10.1 8.5-10.1 MG/DL Corrected Calcium 9.7 8.5-10.1 MG/DL Total Bilirubin 0.4 0.1-1.0 MG/DL Aspartate Amino Transf (AST/SGOT) 14 5-34 U/L Alanine Aminotransferase (ALT/SGPT) 15 0-55 U/L Alkaline Phosphatase 72 40-136 U/L Total Protein 8.0 6.4-8.2 GM/DL Albumin 4.5 3.2-4.5 GM/DL My Orders Orders - ADORE JACK JOY LOADER Cbc With Automated Diff (12/24/19 17:23) Comprehensive Metabolic Panel (12/24/19 17:23) Ua Culture If Indicated (12/24/19 17:23) Ed Iv/Invasive Line Start (12/24/19 17:23) Ct Abd/Pelvis Wo(Kidney Stone) (12/24/19 17:23) Ondansetron Injection (Zofran Injectio (12/24/19 17:30) Wet Prep (12/24/19 17:23) Neisseria Gonorrhea Swab (12/24/19 17:23) Genital Culture (12/24/19 17:23) Chlamydia Trachomatis Swab (12/24/19 17:23) Medications Given in ED Current Medications Medications Dose Ordered Sig/Tamia Route Start Time Stop Time Status Last Admin Dose Admin Ondansetron HCl 8 mg ONCE ONCE IVP 12/24/19 17:30 12/24/19 17:31 DC 12/24/19 17:35 8 MG Vital Signs/I&O 12/24/19 17:15 Temp 36.7 Pulse 74 Resp 16 B/P (MAP) 127/87 (100) Pulse Ox 98 O2 Delivery Room Air Capillary Refill : Departure Impression Primary Impression: Pelvic pain Disposition: HOME, SELF-CARE Condition: Stable Departure-Patient Inst. Decision time for Depature: 18:33 Referrals: NEVILLE PORTER HOLLY R MD (PCP/Family) Primary Care Physician CHRISTINA PATEL MD, LARRY E DO SHAW, ANGELA C DO Patient Instructions: Acute Pelvic Pain (DC), Chronic Pelvic Pain (DC) Add. Discharge Instructions: . Call one of the food trades assistants listed make an appointment to be seen for follow- up. Return to ER for any concerns. All discharge instructions reviewed with patient and/or family. Voiced understanding. Scripts Naproxen (Naprosyn) 500 Mg Tablet 500 MG PO BID PRN for PAIN-MODERATE (5-7), #30 TAB 0 Refills Prov: ADORE JACK APRN 12/24/19 ADORE JACK JOY LOADER Dec 24, 2019 17:26
[2019-12-24] MEDS ORDERED: ONDANSETRON 4 MG/2 ML (SDV) Z0FRAN IVP ONE (17:30)
[2019-12-24 17:31] LABS: BASOPHILS % (AUTO) 0 % (0-10); BILIRUBIN,URINE NEGATIVE (NEGATIVE); CLARITY,URINE CLEAR; COLOR,URINE YELLOW; EOSINOPHILS % (AUTO) 0 % (0-10); GLUCOSE, URINE (UA) NEGATIVE (NEGATIVE); HEMATOCRIT 43 % (35-52); HEMOGLOBIN 15.3 G/DL (11.5-16.0); KETONES,URINE NEGATIVE (NEGATIVE); LEUKOCYTE ESTERASE ,URINE NEGATIVE (NEGATIVE); LYMPHOCYTES # (AUTO) 2.5 X 10^3 (1.0-4.0); LYMPHOCYTES % (AUTO) 25 % (12-44); MEAN CORPUSCULAR HEMOGLOBIN 31 PG (25-34); MEAN CORPUSCULAR HGB CONC 36 G/DL (32-36); MEAN CORPUSCULAR VOLUME 86 FL (80-99); MEAN PLATELET VOLUME 8.8 FL (7.4-10.4); MONOCYTES # (AUTO) 0.8 X 10^3 (0.0-1.0); MONOCYTES % (AUTO) 8 % (0-12); NEUTROPHILS # (AUTO) 6.6 X 10^3 (1.8-7.8); NEUTROPHILS % (AUTO) 67 % (42-75); NITRITE,URINE NEGATIVE (NEGATIVE); PLATELET COUNT 392 10^3/uL (130-400); PROTEIN,URINE NEGATIVE (NEGATIVE); RED CELL DISTRIBUTION WIDTH 13.2 % (10.0-14.5); WHITE BLOOD COUNT 9.8 10^3/uL (4.3-11.0)
[2019-12-24 17:40] LABS: ALBUMIN 4.5 GM/DL (3.2-4.5); CHLORIDE 97 MMOL/L (98-107)
[2019-12-24 17:41] LABS: POTASSIUM 3.2 MMOL/L (3.6-5.0); SODIUM 136 MMOL/L (135-145)
[2019-12-24 17:42] LABS: CALCIUM 10.1 MG/DL (8.5-10.1)
[2019-12-24 17:43] LABS: GLUCOSE 101 MG/DL (70-105)
[2019-12-24 17:44] LABS: CARBON DIOXIDE 25 MMOL/L (21-32)
[2019-12-24 17:45] LABS: BILIRUBIN,TOTAL 0.4 MG/DL (0.1-1.0)
[2019-12-24 17:46] LABS: ALKALINE PHOSPHATASE 72 U/L (40-136)
[2019-12-24 17:47] LABS: GFR ESTIMATED > 60
[2019-12-24 17:48] LABS: BUN/CREATININE RATIO 15
[2019-12-24 17:49] LABS: ALANINE AMINOTRANSFERASE 15 U/L (0-55)
[2019-12-24 17:53] LABS: BACTERIA,URINE TRACE /HPF; WBC,URINE 0-2 /HPF
--- NOTE | 2019-12-24 17:58 | Diagnostic Imaging Report ---
PROCEDURE: CT urinary tract, rule out kidney stone. TECHNIQUE: Multiple contiguous axial images were obtained through the abdomen and pelvis without the use of intravenous contrast. Auto Exposure Controls were utilized during the CT exam to meet ALARA standards for radiation dose reduction. INDICATION: Left flank pain Lung bases are clear. Liver appears normal. Gallbladder surgically absent. Pancreas is normal. Spleen is not enlarged. Adrenals are normal. Kidneys appear normal. There is no hydronephrosis. Ureters are clear. Urinary bladder is normal. Uterus is present. Adnexa are unremarkable. There is no intraperitoneal free air or free fluid. There are some diverticuli of the colon but no evidence of diverticulitis. Small bowel appears normal. The appendix is unremarkable. IMPRESSION: Uncomplicated diverticulosis of the colon. No acute abnormality seen in the abdomen or pelvis. Dictated by: Dictated on workstation # [id number]
[2019-12-24] MEDS ORDERED: NAPR-1071 PO (18:34)
[2019-12-24 18:47] VITALS: BP 112/89
--- OUTSIDE RECORDS SUMMARY | 2019-12-24 19:33 | XMS REPORT | Clinical Summary ---
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 Last Filed Vital Signs Not on file Plan of Treatment Not on file Results Not on filefrom Last 3 Months
--- OUTSIDE RECORDS SUMMARY | 2019-12-24 19:33 | XMS REPORT | Encounter Summary ---
Author Author [facility] Address Unknown Phone Unavailable Care Team Providers Care Environmental Marketing Representative Name Role Phone PCP Unavailable Encounter Details Care Team Description Date Type Department Breann Gonzalez MD [address] [place] [address] [phone] Emergency, Physician, Urinary tract infection, site not specif ied [facility] [address] [place] [address] Social History Date Tobacco Use Types Packs/Day Years Used Never Assessed Sex Assigned at Date Recorded Not on file Industry Job Start Date Occupation Not on file Not on file Not on file Travel End Travel History Travel Start No recent travel history available. documented as of this encounter Plan of Treatment Not on filedocumented as of this encounter Procedures Comments Procedure Name Priority Date/Time Associated Diag nosis CT ABDOMEN PELVIS W Routine 04/15/2011 CONTRAST 12:38 AM CDT COMPREHENSIVE METABOLIC Routine 04/14/2011 PANEL 10:19 PM CDT CBC AND DIFF (MANUAL DIFF Routine 04/14/2011 IF NECESSARY) 10:19 PM CDT URINE NITRITE Routine 04/14/2011 10:17 PM CDT URINALYSIS MICROSCOPIC Routine 04/14/2011 ONLY 10:17 PM CDT URINE TEST Routine 04/14/2011 10:17 PM CDT URINALYSIS (INCLUDES Routine 04/14/2011 MICROSCOPIC REVIEW, IF 10:17 PM CDT INDICATED) documented in this encounter Results * CT Abdomen Pelvis w contrast (04/15/2011 12:38 AM CDT) Specimen Narrative Performed At [facility] Patient: LUCERO RAMOS Phone #: [employer] Rec#: [id number] Sex: F : 1965 [facility]#: [id number] Location: [place] Check-in#: [id number] Procedure Requested: [id number] CT ABD PELVI S WITH CONTRAST Reason For Exam: ABDOMINAL PAIN S PECIFY SITE Exam Ordered: 04/14/2011 223 1 Exam Date/Time: 04/15/2011 0100 Check-in Date/Time: 04/14/2011 2230 Attendin EMERGENCY, PHYSI BEVERLY "" Requestin LISA BREANN F Referrin NO, REFERRING DR Primary Care: NO, FAMILY CT ABD PELVIS WITH CONTRAST Apr 15, 2011 01:00:00 AM INDICATION: Abdominal pain. Exam: CT of the abdomen and pelvis with IV contrast including delayed images. The patient received 85 cc of Omnipaque 350 without complication. Coronal and sagittal re formatted images were performed. Comparison: None. Findings: LOWER CHEST: Scattered subsegmental atelectasis. The visualized portions of the lower lungs are otherwise clear. The heart is normal in size without pericardial effusion. No focal airspa ce disease. ABDOMEN: No intraperitoneal free air. No intra -abdominal free fluid or fluid collections. No lymphadenopathy. Liver: The liver is enlarged measuring 21 cm craniocaudal and demonstrates diffuse hypoattenuation co nsistent with fatty infiltration without focal masses. Gallbladder and biliary: The gallbladde r is surgically absent. No intrahepatic or extrahepatic biliary du ctal dilatation. Spleen: The spleen is enlarged measurin g 14 cm. Pancreas: The pancreas demonstrates ninfa ogeneous attenuation without focal lesions, peripancreatic inflammat ory changes, or ductal dilatation. Adrenal glands: The adrenal glands are normal in size and attenuation. Kidneys/Ureters: The kidneys are normal in size and attenuation. The ureters are normal in course and calibe r. GI tract: The stomach is well distended . The small bowel and colon are normal in course and caliber without wa ll thickening. The appendix is normal in caliber. Vascular structures: The aorta is emilie l in course and caliber. The mesenteric arterial and venous structur es are patent. PELVIS: Bladder: The bladder is well distended without wall thickening. Genital system: The uterus and ovaries are normal in size for the patient's age. 1.3 cm right ovarian cys t. SKELETAL STRUCTURES AND SOFT TISSUES: No acute osseous abnormalities. Multile kevin degenerative disease. Impression: 1. No acute intra-abdominal/pelvic dise ase. Normal caliber bowel loops and appendix. 2. Hepatomegaly and hepatic steatosis. 3. Splenomegaly ATTESTATION STATEMENT: The staff radiologist has personally re viewed the images and dictated, reviewed or edited the final report. Signed (Authenticated, Released) Date-T marquis: 04/15/2011 0724 Oil Burner- KATHARINA JOAQUIN M.D., Staff Radiologist Dictated By- HAYLEY EWING M.D., Res ident Staff Physician- KATHARINA JOAQUIN M.D., S [facility] Radiologist Authenticated By- KATHARINA JOAQUIN M.D., Staff Radiologist Procedure Note Interface, Rad Conversion - 08/11/2013 7:57 AM JUNIOR ASSISTANT MANAGER REPORT Patient: LUCERO RAMOS Phone #: [employer] Rec#: [id number] Sex: F : 1965 Sadie#: [id number] Location: Check-in#: [id number] Procedure Requested: [id number] CT ABD PELVIS WITH CONTRAST Reason For Exam: ABDOMINAL PAIN SPECIFY SITE Exam Ordered: 04/14/20112230 Exam Date/Time: 04/15/201199 Check-in Date/Time: 04/14/20112229 Attendin EMERGENCY, PHYSICIAN "" Requestin BREANN GONZALEZ Referrin SHANITA, REFERRING DR Primary Care: SHANITA, FAMILY CT ABD PELVIS WITH CONTRAST Apr 15, 2011 01:00:00 AM INDICATION: Abdominal pain. Exam: CT of the abdomen and pelvis with IV contrast including delayed images. The patient received 85 cc of Omnipaque 350 without complication. Coronal and sagittal reformatted images were performed. Comparison: None. Findings: LOWER CHEST: Scattered subsegmental atelectasis. The visualized portions of the lower lungs are otherwise clear. The heart is normal in size without pericardial effusion. No focal airspace disease. ABDOMEN: No intraperitoneal free air. No intra-abdominal free fluid or fluid collections. No lymphadenopathy. Liver: The liver is enlarged measuring 21 cm craniocaudal and demonstrates diffuse hypoattenuation consistent with fatty infiltration without focal masses. Gallbladder and biliary: The gallbladder is surgically absent. No intrahepatic or extrahepatic biliary ductal dilatation. Spleen: The spleen is enlarged measuring 14 cm. Pancreas: The pancreas demonstrates homogeneous attenuation without focal lesions, peripancreatic inflammatory changes, or ductal dilatation. Adrenal glands: The adrenal glands are normal in size and attenuation. Kidneys/Ureters: The kidneys are normal in size and attenuation. The ureters are normal in course and caliber. GI tract: The stomach is well distended. The small bowel and colon are normal in course and caliber without wall thickening. The appendix is normal in caliber. Vascular structures: The aorta is normal in course and caliber. The mesenteric arterial and venous structures are patent. PELVIS: Bladder: The bladder is well distended without wall thickening. Genital system: The uterus and ovaries are normal in size for the patient's age. 1.3 cm right ovarian cyst. SKELETAL STRUCTURES AND SOFT TISSUES: No acute osseous abnormalities. Multilevel degenerative disease. Impression: 1. No acute intra-abdominal/pelvic disea se. Normal caliber bowel loops and appendix. 2. Hepatomegaly and hepatic steatosis. 3. Splenomegaly ATTESTATION STATEMENT: The staff radiologist has personally reviewed the images and dictated, reviewed or edited the final report. Signed (Authenticated, Released) Date-Time: 04/15/2011 0724 Oil Burner- KATHARINA JOAQUIN M.D., Staff Radiologist Dictated By- HAYLEY EWING M.D., Resident Staff Physician- KATHARINA JOAQUIN M.D., Staff Radiologist Authenticated By- KATHARINA JOAQUIN M.D., Staff Radiologist Performing Organization Address City/State[facility] * CBC and Diff (manual diff if necessary) (04/14/2011 10:19 PM CDT) WBC 11.17 (H) 4.00 - 11.00 TH/UL [facility] RBC 4.93 4.00 - 5.00 MIL/UL [facility] Hemoglobin 16.6 (H) 12.0 - 15.0 G/DL [facility] Hematocrit 46 (H) 36 - 45 % [facility] MCV 94 80 - 99 FL [facility] MCH 34 27 - 34 PG [facility] MCHC 36 32 - 36 % [facility] RDW 13.3 9.0 - 14.5 % [facility] Platelet Count 398 140 - 400 TH/UL [facility] MPV 9.7 9.4 - 12.3 FL [facility] % Neutrophils 51 45 - 78 % [facility] %Lymphocytes 42 15 - 47 % [facility] %Monocytes 7 0 - 12 % [facility] %Eosinophils 0 0 - 7 % [facility] # Basophils 0.05 0.00 - 0.10 TH/UL [facility] # Eosinophils 0.02 0.00 - 0.40 TH/UL [facility] %Basophils 0 0 - 2 % [facility] # Monocytes 0.78 0.20 - 0.90 TH/UL [facility] # Lymphocytes 4.66 (H) 1.00 - 3.30 TH/UL [facility] # Granulocytes 5.66 1.70 - 6.80 TH/UL [facility] Specimen Blood Performing Organization Address City/State/[facility] Ph one Number [phone] [place], [place] [address] [place] * Comprehensive Metabolic Panel (04/14/2011 10:19 PM CDT) Albumin 4.4 3.5 - 5.0 G/DL [facility] Aspartate 26 15 - 46 IU/L [facility] Aminotransferas e Bilirubin Total 0.8 0.2 - 1.3 MG/DL [facility] Protein Total 8.2 (H) 6.0 - 8.0 G/DL [facility] Serum Calcium 9.7 8.4 - 10.2 MG/DL [facility] Creatinine 0.8 0.4 - 1.1 MG/DL [facility] Glucose 83 65 - 100 MG/DL [facility] Alkaline 74 42 - 128 IU/L [facility] Phosphatase Sodium 139 137 - 145 MEQ/L [facility] Potassium 3.5 3.5 - 5.1 MEQ/L [facility] Chloride 100 98 - 107 MEQ/L [facility] Carbon Dioxide 29 22 - 30 MEQ/L [facility] Blood Urea 7 7 - 26 MG/DL [facility] Nitrogen Anion Gap 10 3 - 15 [facility] Alanine 18 13 - 69 IU/L [facility] Aminotransferas e eGFR Female AA 94 [facility] Comment: Chronic Kidney Disease less than 60 mL/min/1.73 sq.m Kidney failure less than 15 mL/min/1.73 sq.m eGFR Female 78 [facility] Non-AA Comment: Chronic Kidney Disease less than 60 mL/min/1.73 sq.m Kidney failure less than 15 mL/min/1.73 sq.m Specimen Blood Performing Organization Address [facility] Ph one Number [id number] [phone] [place], [place] [address] [place] * Urinalysis (04/14/2011 10:17 PM CDT) Appearance, Yellow [facility] Urine Specific 1.025 1.001 - 1.030 [facility] [place], UA PH Urine 5.5 5.0 - 8.0 [facility] Hemoglobin Trace (A) Negative [facility] Urine Leukocyte Positive (A) Negative [facility] Esterase Bilirubin Urine Negative Negative [facility] Glucose Urine Negative Negative MG/DL [facility] Ketones Urine Negative Negative MG/DL [facility] Protein Urine Negative Negative MG/DL [facility] Qual Urobilinogen Negative Negative EU/DL [facility] Urine Specimen Urine Performing Organization Address [facility] Ph one Number [id number] [phone] [place], [place] [address] [place] * Urine Nitrite (04/14/2011 10:17 PM CDT) Nitrite Urine Negative Negative [facility] Specimen Urine Performing Organization Address [facility] Ph one Number [id number] [phone] [place], [place] [address] [place] * Urinalysis Microscopic Only (04/14/2011 10:17 PM CDT) MICROSCOPIC Done [facility] Microscopic WBC >40 (A) 1 - 5 [facility] Urine Bacteria Small (A) Absent [facility] Mucus Small (A) Absent [facility] Epithelial Small (A) Absent [facility] Cells Specimen Urine Performing Organization Address [facility] Ph one Number [id number] [phone] [place], [place] [address] [place] * Urine Test (04/14/2011 10:17 PM CDT) UCG Urine Negative Negative [facility] Specimen Urine Performing Organization Address City/State[facility] Ph one Number [facility] [phone] [place], [place] [address] [facility] documented in this encounter Visit Diagnoses Diagnosis Urinary tract infection, site not speci fied documented in this encounter
--- OUTSIDE RECORDS SUMMARY | 2019-12-24 19:34 | XMS REPORT ---
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 Name Role Phone SURESH ANDRADE Unavailable PROBLEMS Type Condition ICD9-CM Code MXB43-GB Code Onset Dates Condition S tatus SNOMED Code Problem Unspecified epilepsy without mention of intractable ep ilepsy G40.909 Active 52152292 Problem Hypertension I10 Active 1849557 3 Problem Other chronic pain G89.29 Active 1 92080306 Problem Rheumatoid arthritis M06.9 Active 13099331 Problem Hyperlipidemia, unspecified E78.5 Ac tive 95712863 Problem Depressive disorder F32.9 Active 91864458 Problem Esophageal reflux K21.9 Active 23 4403830 Problem Carpal tunnel syndrome of left wrist G56.02 Active [id number] Problem Presbyopia H52.4 Active 24892911 Problem Cough R05 Active 91433833 Problem Nondependent 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 Ac tive 240747395 Problem Unspecified open-angle glaucoma, stage unspecified H40.10X0 Feb, Active 30701363 Problem Anxiety disorder, unspecified F41.9 Active 350239608 Problem Insomnia G47.00 Active 073977102 Problem Neuropathy G62.9 Active 691079923 Problem Thyroid nodule E04.1 Active 33425 5005 Problem Multinodular goiter E04.2 Active 457950908 Problem Chronic tension-type headache, intractable G44.221 Active 110704312 Problem Acquired hypothyroidism E03.9 Active 227882249 Problem Goiter E04.9 Active 6775222 Problem Chronic obstructive pulmonary disease, unspecified COPD ty pe J44.9 Active 02445579 Problem Reactive airway disease with out complication, unspecified asthma severity, unspecified whether persistent J45.909 Active 971705201939 Problem BMI 40.0-44.9, adult Z68.41 Active 333444486 Problem Essential hypertension I10 Active 81060337 Problem Right-sided low back pain without sciatica M54.5 Active 308521194 Problem Tension headache G44.209 Active 398 200351 Problem Depression F32.9 Active 54562336 Problem Arthralgia M25.50 Active 75329786 Problem Urge incontinence of urine N39.41 Act chen 44585470 Problem Abnormal laboratory test R89.9 Activ e 470708963 Problem COPD with exacerbation J44.1 Active 881962287 Problem Seasonal allergic rhinitis due to pollen J30.1 Active 05941901 ALLERGIES No Information ENCOUNTERS Encounter Location Date Diagnosis [facility] [id number] [place] [address] October, [facility] [address] [address] October, Thyroid nodule E04.1 and Mul tinodular goiter E04.2 [facility] [id number] [place] [id number] October, [facility] [address] [address] October, Thyroid nodule E04.1 and Mul tinodular goiter E04.2 [facility] [address] [address] Sep, [facility] [address] [address] Sep, Thyroid nodule E04.1 [facility] [id number] [place] [address] Sep, Counseled by nurse Z71.9 and Thyroid nodule E04.1 [facility] [address] [address] Sep, Acquired hypothyroidism E03. 9 ; Tension headache G44.209 ; Essential hypertension I10 ; Multinodular goiter E04.2 and BMI 40.0-44.9, adult Z68.41 [facility] [address] [address] Aug, Pelvic pain R10.2 ; Other sp ecified bacterial agents as the cause of diseases classified elsewhere B96.89 and Acute vaginitis N76.0 [place] [address] [address] [facility] [id number] [address] [place] [address] Apr, Bronchitis J40 [place] [address] [address] [facility] [id number] [address] [place] [address] Apr, Acute gastritis without hemo rrhage, unspecified gastritis type K29.00 [place] [address] [address] [facility] [id number] [address] [place] [address] Mar, [place] [address] [facility] [id number] [place] [address] Feb, [place] [address] [facility] [id number] [address] [place] [address] Feb, Mass of right side of neck R 22.1 and Multinodular goiter E04.2 [facility] [address] [place] [address] [address] [facility] [id number] [address] [place] [address] Jan, Bronchitis J40 [place] [address] [address] [facility] [id number] [address] [place] [address] October, Acquired hypothyroidism E03. 9 [place] [address] [address] [facility] [id number] [address] [place] [address] October, Acute gastritis without hemo rrhage, unspecified gastritis type K29.00 ; Epigastric pain R10.13 ; Essential hypertension I10 ; Screening for colon cancer Z12.11 and BMI 40.0-44.9, adult Z68.41 [place] [address] [address] [facility] [id number] [address] [place] [address] October, [facility] [address] [facility] [id number] [address] [place] [address] October, Chest pain R07.9 and Morbid obesity E66.01 [facility] [place] [address] [place] [id number] [place] [address] Sep, Generalized abdominal pain R 10.84 ; Morbid obesity E66.01 ; Non-intractable vomiting with nausea, unspecified vomiting type R11.2 and Seasonal allergic rhinitis due to pollen J30.1 [facility] [address] [facility] [id number] [address] [place] [address] 28 Jul, 2018 COPD with exacerbation J44.1 ; Viral upper respiratory tract infection J06.9 and Morbid obesity E66.01 [facility] [id number] [place] [address] Jun, Viral upper respiratory trac t infection J06.9 [facility] [address] [address] [id number] [place] [address] Apr, Abnormal laboratory test R89 .9 [place] [address] [place] [id number] [place] [address] Apr, Abnormal laboratory test R89 .9 [place] [address] [place] [id number] [place] [address] Apr, Abnormal laboratory test R89 .9 [place] [address] [place] [id number] [place] [address] Apr, [facility] [address] [place] [id number] [address] [place] [address] Apr, [place] [address] [address] Apr, Nonintractable episodic head ache, unspecified headache type R51 ; Urge incontinence of urine N39.41 ; BMI 40.0-44.9, adult Z68.41 ; Myalgia M79.10 and Acute cystitis without hematuria N30.00 [facility] [address] [place] [id number] [address] [place] [address] Mar, Nasal congestion R09.81 ; Lo w back pain M54.5 ; Reactive airway disease without complication, unspecified asthma severity, unspecified whether persistent J45.909 ; Other chronic pain G89.29 ; Acute cystitis with hematuria N30.01 and BMI 40.0-44.9, adult Z68.41 [facility] [address] [address] Mar, Acute cystitis with hematuri a N30.01 [facility] [address] [address] Mar, BMI 40.0-44.9, adult Z68.41 ; Acute cystitis with hematuria N30.01 ; Acute bilateral low back pain without sciatica M54.5 and Nausea R11.0 [place] [address] [address] Mar, Hypertension I10 ; Acquired hypothyroidism E03.9 ; Esophageal reflux K21.9 ; Chronic obstructive pulmonary disease, unspecified COPD type J44.9 and BMI 40.0-44.9, adult Z68.[address] [address] Mar, Hypertension I10 [place] [address] [address] Nov, Hyperlipidemia, unspecified E78.[address] [address] October, Chest pain, unspecified type R07.9 and Acquired hypothyroidism E03.[address] [address] October, Chest pain, unspecified type R07.9 ; Family history of coronary artery disease Z82.49 ; Carpal tunnel syndrome of left wrist G56.02 ; Hypertension I10 ; Esophageal reflux K21.9 ; Arthralgia M25.50 ; Acquired hypothyroidism E03.9 ; Cough R05 ; Nausea R11.0 ; Weight gain R63.5 and BMI 45.0-49.9, adult Z68.[address] [address] Jun, Acquired hypothyroidism E03. 9 and Cough R05 [place] [address] [address] May, [place] [address] [address] Feb, Tarsal tunnel syndrome of timi th lower extremities G57.53 and Neuropathy G62.9 [place] [address] [address] Dec, Pleuritis R09.1 [place] [address] [address] Nov, [place] [address] [address] October, Arthralgia, unspecified join t M25.50 and Allergy, initial encounter T78.40XA [place] [address] [address] October, [place] [address] [address] October, Acute recurrent maxillary si nusitis J01.01 and Arthralgia M25.50 [place] [address] [address] Sep, Pharyngitis due to other org anism J02.8 [place] [address] [place] [id number] [place] [address] Aug, Acute nasopharyngitis J00 [place] [address] [address] Aug, Multinodular goiter E04.2 [place] [address] [place] [id number] [place] [address] Aug, Thyroid nodule E04.1 [place] [address] [address] Jul, Tarsal tunnel syndrome of timi th lower extremities G57.53 [place] [address] [address] Jun, Pneumonia due to infectious organism, unspecified laterality, unspecified part of lung J18.9 [place] [address] [address] Jun, Bronchospasm with bronchitis , acute J20.9 [place] [address] [address] May, Acute non-recurrent frontal sinusitis J01.[address] [address] May, Flat foot [pes planus] (acqu ired), left foot M21.42 ; Flat foot [pes planus] (acquired), right foot M21.41 and Neuropathy G62.[address] [address] Apr, Chronic tension-type headach e, intractable G44.221 ; Right lower quadrant abdominal pain R10.31 ; Cervicalgia M54.2 ; Acute gastritis without hemorrhage, unspecified gastritis type K29.00 and Hypertension I10 [address] [address] Mar, Depression F32.9 and Anxiety disorder, unspecified F41.9 [place] [address] [address] Feb, Depressive disorder F32.9 an d Anxiety disorder, unspecified F41.[address] [address] Jan, Dysuria R30.0 ; Lower abdomi nal pain R10.30 ; Acute bilateral low back pain without sciatica M54.5 ; Nausea and vomiting, unspecified intactability, vomiting of unspecified type R11.2 ; Pain in right foot M79.671 and Pain of left foot M79.672 [facility] [address] [facility] [id number] [address] [place] [address] Dec, Urinary tract infection, sit e not specified N39.0 [facility] [address] [id number] [address] [place] [address] Dec, [facility] [address] [facility] [id number] [address] [place] [address] Nov, [facility] [address] [facility] [id number] [address] [place] [address] Nov, Dysuria R30.0 [facility] [address] [facility] [id number] [address] [place] [address] Nov, Dysuria R30.0 and Acute cyst itis with hematuria N30.01 [facility] [address] [facility] [id number] [address] [place] [address] October, Nausea R11.0 [facility] [address] [facility] [id number] [address] [place] [address] October, Thyroid nodule E04.1 ; Carpa l tunnel syndrome, left upper limb G56.02 ; Carpal tunnel syndrome, right upper limb G56.01 and Constipation, unspecified constipation type K59.00 [facility] [address] [facility] [id number] [address] [place] [address] October, [facility] [address] [facility] [id number] [address] [place] [address] October, Thyroid nodule E04.1 [facility] [address] [facility] [id number] [address] [place] [address] October, Cold thyroid nodule E04.1 [facility] [address] [facility] [id number] [address] [place] [address] October, [facility] [address] [facility] [id number] [address] [place] [address] Sep, Thyroid nodule E04.1 [facility] [address] [place] [id number] [place] [address] Sep, Thyroid nodule E04.1 [place] [address] [place] [id number] [place] [address] Sep, Thyroid nodule E04.1 ; Hyper tension I10 ; Esophageal reflux K21.9 and Hyperlipidemia, unspecified E78.5 [place] [address] [place] [id number] [place] [address] Aug, Other chronic pain G89.29 ; Sinusitis J32.9 and Hypertension I10 [place] [address] [place] [id number] [place] [address] Jul, [place] [address] [address] 15 Jul, 2015 [place] [address] [address] 10 Jul, 2015 Insomnia G47.00 and Arthralg ia M25.50 [place] [address] [address] 10 Jul, 2015 Depressive disorder F32.9 an d Anxiety disorder, unspecified F41.9 [place] [address] [place] [id number] [place] [address] May, Right-sided low back pain wi thout sciatica M54.5 and Depression F32.9 [place] [address] [place] [address] Apr, Hematuria R31.9 [place] [address] [place] [id number] [place] [address] Mar, Other chronic pain G89.29 [place] [address] [place] [id number] [place] [address] Mar, Other chronic pain G89.29 [place] [address] [place] [id number] [place] [address] Feb, [place] [address] [id number] [address] [place] [address] Feb, Other chronic pain 338.29 ; Dysuria 788.1 ; UTI (urinary tract infection) 599.0 ; Insomnia 780.52 ; Hot flashes 627.2 and Hypertension 401.9 [facility] [address] [facility] [id number] [address] [place] [address] Feb, Dysuria 788.1 [facility] [address] [facility] [id number] [address] [place] [address] Feb, [facility] [address] [facility] [id number] [address] [place] [address] Jan, [facility] [address] [facility] [id number] [address] [place] [address] Jan, [facility] [address] [place] [id number] [place] [address] Jan, Fibromyalgia 729.1 ; Hyperte nsion 401.9 ; Dysthymia 300.4 and Hot flashes 627.2 [facility] [address] [facility] [id number] [address] [place] [address] Dec, [facility] [address] [facility] [id number] [address] [place] [address] Dec, [facility] [address] [facility] [id number] [address] [place] [address] Dec, [facility] [address] [facility] [id number] [address] [place] [address] Nov, Other chronic pain 338.29 [facility] [address] [facility] [id number] [address] [place] [address] October, [facility] [address] [facility] [id number] [address] [place] [address] October, [facility] [address] [facility] [id number] [address] [place] [address] Sep, [facility] [address] [id number] [facility] [place] [address] 13 Sep, 2014 [facility] [address] [id number] [address] [place] [address], [place] [address] Aug, [facility] [address] [id number] [address] [place] [address], [place] [address] Aug, [facility] [address] [id number] [address] [place] [address], [place] [address] Aug, [facility] [address] [id number] [address] [place] [address], [place] [address] Aug, [facility] [address] [id number] [address] [place] [address], [place] [address] Aug, [facility] [address] [id number] [address] [place] [address], [place] [address] Aug, [facility] [address] [id number] [address] [place] [address], [place] [address] Aug, [facility] [address] [id number] [address] [place] [address], [place] [address] Aug, [facility] [address] [id number] [address] [place] [address], [place] [address] Aug, [facility] [address] [id number] [address] [place] [address], [place] [address] Aug, [facility] [address] [id number] [address] [place] [address], [place] [address] Aug, [facility] [address] [id number] [address] [place] [address], [place] [address] Aug, [facility] [address] [id number] [address] [place] [address], [place] [address] Aug, [facility] [address] [id number] [address] [place] [address], [place] [address] Aug, [facility] [address] [id number] [address] [place] [address], [place] [address] Jul, [facility] [address] [id number] [address] [place] [address], [place] [address] Jul, [facility] [address] [id number] [address] [place] [address], [place] [address] Jul, [facility] [address] [id number] [address] [place] [address], [place] [address] Jul, [facility] [address] [id number] [address] [place] [address], [place] [address] Jul, [facility] [address] [id number] [address] [place] [address], [place] [address] Jul, [facility] [address] [id number] [address] [place] [address], [place] [address] Jun, [facility] [address] [id number] [address] [place] [address], [place] [address] Jun, [facility] [address] [id number] [address] [place] [address], [place] [address] Jun, [facility] [address] [id number] [address] [place] [address], [place] [address] Jun, [facility] [address] [id number] [address] [place] [address], [place] [address] May, [facility] [address] [id number] [address] [place] [address], [place] [address] May, [facility] [address] [id number] [address] [place] [address], [place] [address] May, [facility] [address] [id number] [address] [place] [address], [place] [address] May, [facility] [address] [id number] [address] [place] [address], [place] [address] May, [facility] [address] [id number] [address] [place] [address], [place] [address] May, [facility] [address] [id number] [address] [place] [address], [place] [address] May, [facility] [address] [id number] [address] [place] [address], [place] [address] May, [facility] [address] [id number] [address] [place] [address], [place] [address] May, [facility] [address] [id number] [address] [place] [address], [place] [address] May, [facility] [address] [id number] [address] [place] [address], [place] [address] Apr, [facility] [address] [id number] [address] [place] [address], [place] [address] Apr, [facility] [address] [id number] [address] [place] [address], [place] [address] Apr, [facility] [address] [id number] [address] [place] [address], [place] [address] Apr, [facility] [address] [id number] [address] [place] [address], [place] [address] Apr, [facility] [address] [id number] [address] [place] [address], [place] [address] Apr, [facility] [address] [id number] [address] [place] [address], [place] [address] Apr, [facility] [address] [id number] [address] [place] [address], [place] [address] Apr, [facility] [address] [id number] [address] [place] [address], [place] [address] Apr, [facility] [address] [id number] [address] [place] [address], [place] [address] Mar, [facility] [address] [id number] [address] [place] [address], [place] [address] Mar, [facility] [address] [id number] [address] [place] [address], [place] [address] Mar, [facility] [address] [id number] [address] [place] [address], [place] [address] Mar, [facility] [address] [id number] [address] [place] [address], [place] [address] Mar, [facility] [address] [id number] [address] [place] [address], [place] [address] Mar, [facility] [address] [id number] [address] [place] [address], [place] [address] Mar, [facility] [address] [id number] [address] [place] [address], [place] [address] Mar, [facility] [address] [id number] [address] [place] [address], [place] [address] 30 Feb, 2014 [facility] [address] [id number] [address] [place] [address], [place] [address] 30 Feb, 2013 [facility] [address] [id number] [address] [place] [address], [place] [address] 24 Feb, 2013 [facility] [address] [id number] [address] [place] [address], [place] [address] 24 Feb, 2013 [facility] [address] [id number] [address] [place] [address], [place] [address] 22 Feb, 2013 [facility] [address] [id number] [address] [place] [address], [place] [address] 22 Feb, 2013 [facility] [address] [id number] [address] [place] [address], [place] [address] 10 Feb, 2013 [facility] [address] [id number] [address] [place] [address], [place] [address] 10 Feb, 2013 [facility] [address] [id number] [address] [place] [address], [place] [address] 03 Feb, 2013 [facility] [address] [id number] [address] [place] [address], [place] [address] 03 Feb, 2013 [facility] [address] [id number] [address] [place] [address] [place] [address] Feb, 2013 [facility] [address] [id number] [facility] [place] [address] Feb, 2013 [facility] [address] [id number] [address] [place] [address], [place] [address] Feb, [facility] [address] [id number] [address] [place] [address], [place] [address] Feb, [facility] [address] [id number] [address] [place] [address], [place] [address] Jan, [facility] [address] [id number] [address] [place] [address], [place] [address] Jan, [facility] [address] [id number] [address] [place] [address], [place] [address] Dec, [facility] [address] [id number] [address] [place] [address], [place] [address] Dec, [facility] [address] [id number] [address] [place] [address], [place] [address] Dec, [facility] [address] [id number] [address] [place] [address], [place] [address] Dec, [facility] [address] [id number] [address] [place] [address], [place] [id number] Dec, [facility] [address] [id number] [address] [place] [address], [place] [address] Dec, [facility] [address] [id number] [address] [place] [address], [place] [address] Dec, [facility] [address] [id number] [address] [place] [address], [place] [address] Dec, [facility] [address] [id number] [address] [place] [address], [place] [address] Dec, [facility] [address] [id number] [address] [place] [address], [place] [address] Dec, [facility] [address] [id number] [facility] [place] [address] 14 Dec, 2013 [facility] [address] [id number] [facility] [place] [address] Dec, 2013 [facility] [address] [id number] [address] [place] [address], [place] [address] Dec, 2013 [facility] [address] [id number] [address] [place] [address], [place] [address] Dec, 2013 [facility] [address] [id number] [address] [place] [address], [place] [address] Dec, 2013 [facility] [address] [id number] [address] [place] [address], [place] [address] Dec, 2013 [facility] [address] [id number] [address] [place] [address], [place] [address] Dec, 2013 [facility] [address] [id number] [address] [place] [address], [place] [address] Dec, [facility] [address] [id number] [address] [place] [address], [place] [address] Dec, [facility] [address] [id number] [address] [place] [address], [place] [address] Nov, [facility] [address] [id number] [address] [place] [address], [place] [address] Nov, [facility] [address] [id number] [address] [place] [address], [place] [address] Nov, [facility] [address] [id number] [address] [place] [address], [place] [address] Nov, [facility] [address] [id number] [address] [place] [address], [place] [address] Nov, [facility] [address] [id number] [address] [place] [address], [place] [address] Nov, [facility] [address] [id number] [address] [place] [address], [place] [address] Nov, [facility] [address] [id number] [facility] [place] [address] Nov, [facility] [address] [id number] [facility] [place] [address] Nov, [facility] [address] [id number] [address] [place] [address], [place] [address] October, [facility] [address] [id number] [address] [place] [address], [place] [address] October, [facility] [address] [id number] [address] [place] [address], [place] [address] October, [facility] [address] [id number] [address] [place] [address], [place] [address] October, [facility] [address] [id number] [address] [place] [address], [place] [address] October, [facility] [address] [id number] [address] [place] [address], [place] [address] October, [facility] [address] [id number] [address] [place] [address], [place] [address] October, [facility] [address] [id number] [address] [place] [address], [place] [address] October, [facility] [address] [id number] [address] [place] [address], [place] [address] Sep, [facility] [address] [id number] [address] [place] [address], [place] [address] Sep, [facility] [address] [id number] [address] [place] [address], [place] [address] Sep, [facility] [address] [id number] [address] [place] [address], [place] [address] Sep, [facility] [address] [id number] [address] [place] [address], [place] [address] Sep, [facility] [address] [id number] [address] [place] [address], [place] [address] Sep, [facility] [address] [id number] [address] [place] [address], [place] [address] Sep, [facility] [address] [id number] [address] [place] [address], [place] [address] Aug, [facility] [address] [id number] [address] [place] [address], [place] [address] Aug, [facility] [address] [id number] [address] [place] [address], [place] [address] Aug, [facility] [address] [id number] [address] [place] [address], [place] [address] Aug, [facility] [address] [id number] [address] [place] [address], [place] [address] Aug, [facility] [address] [id number] [address] [place] [address], [place] [address] Aug, [facility] [address] [id number] [address] [place] [address], [place] [address] Jul, [facility] [address] [id number] [address] [place] [address], [place] [address] Jul, [facility] [address] [id number] [address] [place] [address], [place] [address] Jul, [facility] [address] [id number] [address] [place] [address], [place] [address] Jul, [facility] [address] [id number] [address] [place] [address], [place] [address] Jul, [facility] [address] [id number] [address] [place] [address], [place] [address] Jul, [facility] [address] [id number] [address] [place] [address], [place] [address] Jun, [facility] [address] [id number] [address] [place] [address], [place] [address] Jun, [facility] [address] [id number] [address] [place] [address], [place] [address] Jun, [facility] [address] [id number] [address] [place] [address], [place] [address] Jun, [facility] [address] [id number] [address] [place] [address], [place] [address] Jun, [facility] [address] [id number] [address] [place] [address], [place] [address] Jun, [facility] [address] [id number] [address] [place] [address], [place] [address] Jun, [facility] [address] [id number] [address] [place] [address], [place] [address] Jun, [facility] [address] [id number] [address] [place] [address], [place] [address] Jun, [facility] [address] [id number] [address] [place] [address], [place] [address] Jun, [facility] [address] [id number] [address] [place] [address], [place] [address] Jun, [facility] [address] [id number] [address] [place] [address], [place] [address] Jun, [facility] [address] [id number] [address] [place] [address], [place] [address] Jun, [facility] [address] [id number] [address] [place] [address], [place] [address] May, [facility] [address] [id number] [address] [place] [address], [place] [address] May, [facility] [address] [id number] [address] [place] [address], [place] [address] May, [facility] [address] [id number] [address] [place] [address], [place] [address] May, [facility] [address] [id number] [address] [place] [address], [place] [address] 26 May, 2013 [facility] [address] [id number] [address] [place] [address], [place] [address] 14 May, 2013 [facility] [address] [id number] [address] [place] [address], [place] [address] 14 May, 2013 [facility] [address] [id number] [address] [place] [address], [place] [address] 12 May, 2013 [facility] [address] [id number] [address] [place] [address], [place] [address] 12 May, 2013 [facility] [address] [id number] [address] [place] [address], [place] [address] May, [facility] [address] [id number] [address] [place] [address], [place] [address] May, [facility] [address] [id number] [address] [place] [address], [place] [address] 10 May, 2013 [facility] [address] [id number] [address] [place] [address], [place] [address] 10 May, 2013 [facility] [address] [id number] [address] [place] [address], [place] [address] 09 May, 2013 [facility] [address] [id number] [address] [place] [address], [place] [address] 09 May, 2013 [facility] [address] [id number] [address] [place] [address], [place] [address] 08 May, 2013 [facility] [address] [id number] [address] [place] [address], [place] [address] 07 May, 2013 [facility] [address] [id number] [address] [place] [address], [place] [address] 06 May, 2013 [facility] [address] [id number] [address] [place] [address], [place] [address] 06 May, 2013 [facility] [address] [id number] [address] [place] [address], [place] [address] 06 May, 2013 [facility] [address] [id number] [address] [place] [address], [place] [address] May, [facility] [address] [id number] [address] [place] [address], [place] [address] Apr, [facility] [address] [id number] [address] [place] [address], [place] [address] Apr, [facility] [address] [id number] [address] [place] [address], [place] [address] Apr, [facility] [address] [id number] [address] [place] [address], [place] [address] Apr, [facility] [address] [id number] [address] [place] [address], [place] [address] Mar, [facility] [address] [id number] [address] [place] [address], [place] [address] 23 Feb, 2013 [facility] [address] [id number] [address] [place] [address], [place] [address] 16 Feb, 2013 [facility] [address] [id number] [address] [place] [address], [place] [address] 13 Feb, 2013 [facility] [address] [id number] [address] [place] [address], [place] [address] 10 Feb, 2013 [facility] [address] [id number] [address] [place] [address], [place] [address] Feb, [facility] [address] [id number] [address] [place] [address], [place] [address] Feb, [facility] [address] [id number] [address] [place] [address], [place] [address] Jan, [facility] [address] [id number] [address] [place] [address], [place] [address] Jan, [facility] [address] [id number] [address] [place] [address], [place] [address] Jan, [facility] [address] [id number] [address] [place] [address], [place] [address] 17 Dec, 2012 [facility] [address] [id number] [facility] [place] [address] 17 Dec, 2012 [facility] [address] [id number] [address] [place] [address], [place] [address] 17 Dec, 2012 [facility] [address] [id number] [address] [place] [address], [place] [address] 15 Dec, 2012 [facility] [address] [id number] [address] [place] [address], [place] [address] Dec, [facility] [address] [id number] [address] [place] [address], [place] [address] Nov, [facility] [address] [id number] [address] [place] [address], [place] [address] Nov, [facility] [address] [id number] [address] [place] [address], [place] [address] Nov, [facility] [address] [id number] [address] [place] [address], [place] [address] Nov, [facility] [address] [id number] [address] [place] [address], [place] [address] Nov, [facility] [address] [id number] [address] [place] [address], [place] [address] 08 Nov, 2012 [facility] [address] [id number] [address] [place] [address], [place] [address] 07 Nov, 2012 [facility] [address] [id number] [address] [place] [address], [place] [address] 06 Nov, 2012 [facility] [address] [id number] [address] [place] [address], [place] [address] 05 Nov, 2012 [facility] [address] [id number] [address] [place] [address], [place] [address] 04 Nov, 2012 [facility] [address] [id number] [address] [place] [address], [place] [address] October, [facility] [address] [id number] [address] [place] [address], [place] [address] October, [facility] [address] [id number] [address] [place] [address], [place] [address] Sep, [facility] [address] [id number] [address] [place] [address], [place] [address] Sep, [facility] [address] [id number] [address] [place] [address], [place] [address] Sep, [facility] [address] [id number] [address] [place] [address], [place] [address] Sep, [facility] [address] [id number] [address] [place] [address], [place] [address] Sep, [facility] [address] [id number] [address] [place] [address], [place] [address] Aug, [facility] [address] [id number] [address] [place] [address], [place] [address] Aug, [facility] [address] [id number] [address] [place] [address], [place] [address] Jul, [facility] [address] [id number] [address] [place] [address], [place] [address] Jul, [facility] [address] [id number] [address] [place] [address], [place] [address] Jun, [facility] [address] [id number] [address] [place] [address], [place] [address] Jun, [facility] [address] [id number] [address] [place] [address], [place] [address] May, [facility] [address] [id number] [address] [place] [address], [place] [address] May, [facility] [address] [id number] [address] [place] [address], [place] [address] May, [facility] [address] [id number] [address] [place] [address], [place] [address] May, [facility] [address] [id number] [address] [place] [address], [place] [address] Apr, [facility] [address] [id number] [address] [place] [address], [place] [address] Apr, [facility] [address] [id number] [address] [place] [address], [place] [address] Apr, [facility] [address] [id number] [address] [place] [address], [place] [address] Apr, [facility] [address] [id number] [address] [place] [address], [place] [address] Apr, [facility] [address] [id number] [address] [place] [address], [place] [address] Apr, [facility] [address] [id number] [address] [place] [address], [place] [address] Apr, [facility] [address] [id number] [address] [place] [id number] Apr, [facility] [address] [id number] [address] [place] [address], [place] [address] Apr, [facility] [address] [id number] [address] [place] [id number] Mar, [facility] [address] [id number] [address] [place] [id number] Mar, [facility] [address] [id number] [address] [place] [id number] Feb, [facility] [address] [id number] [address] [place] [address], [place] [address] Jan, [facility] [address] [id number] [address] [place] [id number] Jan, [facility] [address] [id number] [address] [place] [id number] Dec, [facility] [address] [id number] [address] [place] [id number] Nov, [facility] [address] [id number] [address] [place] [address], [place] [address] Nov, [facility] [address] [id number] [address] [place] [address], [place] [address] October, [facility] [address] [id number] [address] [place] [address], [place] [address] October, [facility] [address] [id number] [address] [place] [address], [place] [address] Sep, [facility] [address] [id number] [address] [place] [address], [place] [address] Sep, [facility] [address] [id number] [address] [place] [address], [place] [address] May, [facility] [address] [id number] [address] [place] [id number] Apr, [facility] [address] [id number] [address] [place] [address], [place] [address] Apr, [facility] [address] [id number] [address] [place] [address], [place] [address] Apr, [facility] [address] [id number] [address] [place] [id number] Apr, [facility] [address] [id number] [address] [place] [address], [place] [address] Apr, [facility] [address] [id number] [address] [place] [phone] Apr, [facility] [address] [id number] [address] [place] [address], [place] [address] Apr, [facility] [address] [id number] [address] [place] [address], [place] [address] Apr, [facility] [address] [id number] [address] [place] [address], [place] [address] Mar, [facility] [address] [facility] [id number] [address] [place] [phone] Mar, [facility] [address] [facility] [id number] [address] [place] [id number] Mar, [facility] [address] [facility] [id number] [address] [place] [id number] Mar, [facility] [address] [facility] [id number] [address] [place] [id number] Mar, [facility] [address] [facility] [id number] [address] [place] [id number] Mar, IMMUNIZATIONS No Known Immunizations SOCIAL HISTORY [...] Surgical History cholecystectomy Surgical History Stomach surgeryx3 Surgical History tubal ligation Hospitalization History Mental floor at [facility]
--- OUTSIDE RECORDS SUMMARY | 2019-12-24 19:35 | XMS REPORT ---
Author Author Trey POLK Organization [facility] Address [address] [place] [address] Care Team Providers Care Slope Tender Name Role Phone GILMER POLKWIN Unavailable PROBLEMS Type Condition ICD9-CM Code XXH87-CD Code Onset Dates Condition S tatus SNOMED Code Problem Unspecified epilepsy without mention of intractable ep ilepsy G40.909 Active 84053985 Problem Hypertension I10 Active 9383199 3 Problem Other chronic pain G89.29 Active 1 18826978 Problem Rheumatoid arthritis M06.9 Active 91941955 Problem Hyperlipidemia, unspecified E78.5 Ac tive 83234592 Problem Depressive disorder F32.9 Active 24572041 Problem Esophageal reflux K21.9 Active 23 2868826 Problem Carpal tunnel syndrome of left wrist G56.02 Active 713800303784608 Problem Presbyopia H52.4 Active 78638355 Problem Cough R05 Active 89599354 Problem Nondependent 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 Ac tive 655072509 Problem Unspecified open-angle glaucoma, stage unspecified H40.10X0 Feb, Active 40356722 Problem Anxiety disorder, unspecified F41.9 Active 949936186 Problem Insomnia G47.00 Active 267857563 Problem Neuropathy G62.9 Active 529880973 Problem Thyroid nodule E04.1 Active 67508 5005 Problem Multinodular goiter E04.2 Active 990927081 Problem Chronic tension-type headache, intractable G44.221 Active 259947310 Problem Acquired hypothyroidism E03.9 Active 258865815 Problem Goiter E04.9 Active 5373949 Problem Chronic obstructive pulmonary disease, unspecified COPD ty pe J44.9 Active 52709075 Problem Reactive airway disease with out complication, unspecified asthma severity, unspecified whether persistent J45.909 Active 396809311345 Problem BMI 40.0-44.9, adult Z68.41 Active 888723254 Problem Essential hypertension I10 Active 06656572 Problem Right-sided low back pain without sciatica M54.5 Active 237427796 Problem Tension headache G44.209 Active 398 269643 Problem Depression F32.9 Active 16968225 Problem Arthralgia M25.50 Active 02066762 Problem Urge incontinence of urine N39.41 Act chen 02838832 Problem Abnormal laboratory test R89.9 Activ e 176951241 Problem COPD with exacerbation J44.1 Active 963065848 Problem Seasonal allergic rhinitis due to pollen J30.1 Active 80756828 ALLERGIES No Information ENCOUNTERS Encounter Location Date Diagnosis [facility] [address] [id number] [place] [address] October, [facility] [address] [address] October, Thyroid nodule E04.1 and Mul tinodular goiter E04.2 [facility] [address] [address] [id number] [address] [place] [id number] October, [facility] [address] [address] October, Thyroid nodule E04.1 and Mul tinodular goiter E04.2 [facility] [address] [address] Sep, [facility] [id number] [place] [address] Sep, Thyroid nodule E04.1 [facility] [id number] [place] [address] Sep, Counseled by nurse Z71.9 and Thyroid nodule E04.1 [facility] [address] [address] [id number] [address] [place] [address] Sep, Acquired hypothyroidism E03. 9 ; Tension headache G44.209 ; Essential hypertension I10 ; Multinodular goiter E04.2 and BMI 40.0-44.9, adult Z68.41 [facility] [address] [address] Aug, Pelvic pain R10.2 ; Other sp ecified bacterial agents as the cause of diseases classified elsewhere B96.89 and Acute vaginitis N76.0 [place] [address] [facility] [id number] [address] [place] [address] Apr, Bronchitis J40 [facility] [address] [facility] [id number] [address] [place] [address] 04 Apr, 2019 Acute gastritis without hemo rrhage, unspecified gastritis type K29.00 [place] [address] [facility] [id number] [address] [place] [address] Mar, [place] [address] [place] [id number] [place] [address] Feb, [place] [address] [place] [id number] [place] [address] Feb, Mass of right side of neck R 22.1 and Multinodular goiter E04.2 [facility] [place] [address] [place] [id number] [address] [place] [address] Jan, Bronchitis J40 [place] [address] [place] [id number] [place] [address] October, Acquired hypothyroidism E03. 9 [place] [address] [facility] [id number] [address] [place] [address] October, Acute gastritis without hemo rrhage, unspecified gastritis type K29.00 ; Epigastric pain R10.13 ; Essential hypertension I10 ; Screening for colon cancer Z12.11 and BMI 40.0-44.9, adult Z68.41 [place] [address] [facility] [id number] [address] [place] [address] October, [facility] [place] [address] [place] [id number] [address] [place] [address] October, Chest pain R07.9 and Morbid obesity E66.01 [facility] [place] [address] [place] [id number] [address] [place] [address] Sep, Generalized abdominal pain R 10.84 ; Morbid obesity E66.01 ; Non-intractable vomiting with nausea, unspecified vomiting type R11.2 and Seasonal allergic rhinitis due to pollen J30.1 [facility] [address] [address] Jul, COPD with exacerbation J44.1 ; Viral upper respiratory tract infection J06.9 and Morbid obesity E66.01 [facility] [address] [address] Jun, Viral upper respiratory trac t infection J06.9 [place] [address] [address] Apr, Abnormal laboratory test R89 .9 [place] [address] [address] Apr, Abnormal laboratory test R89 .9 [place] [address] [address] Apr, Abnormal laboratory test R89 .9 [place] [address] [address] Apr, [place] [address] [address] Apr, [place] [address] [address] Apr, Nonintractable episodic head ache, unspecified headache type R51 ; Urge incontinence of urine N39.41 ; BMI 40.0-44.9, adult Z68.41 ; Myalgia M79.10 and Acute cystitis without hematuria N30.00 [place] [address] [address] Mar, Nasal congestion R09.81 ; Lo w back pain M54.5 ; Reactive airway disease without complication, unspecified asthma severity, unspecified whether persistent J45.909 ; Other chronic pain G89.29 ; Acute cystitis with hematuria N30.01 and BMI 40.0-44.9, adult Z68.41 [facility] [address] [address] Mar, Acute cystitis with hematuri a N30.01 [facility] [address] [address] Mar, BMI 40.0-44.9, adult Z68.41 ; Acute cystitis with hematuria N30.01 ; Acute bilateral low back pain without sciatica M54.5 and Nausea R11.0 [place] [address] [address] Mar, Hypertension I10 ; Acquired hypothyroidism E03.9 ; Esophageal reflux K21.9 ; Chronic obstructive pulmonary disease, unspecified COPD type J44.9 and BMI 40.0-44.9, adult Z68.[address] [address] Mar, Hypertension I10 [place] [address] [address] Nov, Hyperlipidemia, unspecified E78.[address] [address] October, Chest pain, unspecified type R07.9 and Acquired hypothyroidism E03.[address] [address] October, Chest pain, unspecified type R07.9 ; Family history of coronary artery disease Z82.49 ; Carpal tunnel syndrome of left wrist G56.02 ; Hypertension I10 ; Esophageal reflux K21.9 ; Arthralgia M25.50 ; Acquired hypothyroidism E03.9 ; Cough R05 ; Nausea R11.0 ; Weight gain R63.5 and BMI 45.0-49.9, adult Z68.[address] [address] Jun, Acquired hypothyroidism E03. 9 and Cough R05 [place] [address] [address] May, [place] [address] [address] Feb, Tarsal tunnel syndrome of timi th lower extremities G57.53 and Neuropathy G62.9 [place] [address] [address] Dec, Pleuritis R09.1 [place] [address] [address] Nov, [place] [address] [address] October, Arthralgia, unspecified join t M25.50 and Allergy, initial encounter T78.40XA [place] [address] [address] October, [place] [address] [address] October, Acute recurrent maxillary si nusitis J01.01 and Arthralgia M25.50 [place] [address] [address] Sep, Pharyngitis due to other org anism J02.8 [place] [address] [address] Aug, Acute nasopharyngitis J00 [place] [address] [address] Aug, Multinodular goiter E04.2 [place] [address] [address] Aug, Thyroid nodule E04.1 [place] [address] [place] [id number] [address] [place] [address] Jul, Tarsal tunnel syndrome of timi th lower extremities G57.53 [place] [address] [address] Jun, Pneumonia due to infectious organism, unspecified laterality, unspecified part of lung J18.9 [place] [address] [address] Jun, Bronchospasm with bronchitis , acute J20.[address] [address] May, Acute non-recurrent frontal sinusitis J01.[address] [address] May, Flat foot [pes planus] (acqu ired), left foot M21.42 ; Flat foot [pes planus] (acquired), right foot M21.41 and Neuropathy G62.[address] [address] Apr, Chronic tension-type headach e, intractable G44.221 ; Right lower quadrant abdominal pain R10.31 ; Cervicalgia M54.2 ; Acute gastritis without hemorrhage, unspecified gastritis type K29.00 and Hypertension I10 [address] [address] Mar, Depression F32.9 and Anxiety disorder, unspecified F41.[address] [address] Feb, Depressive disorder F32.9 an d Anxiety disorder, unspecified F41.[address] [address] Jan, Dysuria R30.0 ; Lower abdomi nal pain R10.30 ; Acute bilateral low back pain without sciatica M54.5 ; Nausea and vomiting, unspecified intactability, vomiting of unspecified type R11.2 ; Pain in right foot M79.671 and Pain of left foot M79.[address] [id number] [address] [place] [address] Dec, Urinary tract infection, sit e not specified N39.0 [facility] [address] [id number] [address] [place] [address] Dec, [facility] [address] [facility] [id number] [address] [place] [address] Nov, [facility] [address] [facility] [id number] [address] [place] [address] Nov, Dysuria R30.0 [facility] [address] [facility] [id number] [address] [place] [address] Nov, Dysuria R30.0 and Acute cyst itis with hematuria N30.01 [facility] [address] [facility] [id number] [address] [place] [address] October, Nausea R11.0 [facility] [address] [facility] [id number] [address] [place] [address] October, Thyroid nodule E04.1 ; Carpa l tunnel syndrome, left upper limb G56.02 ; Carpal tunnel syndrome, right upper limb G56.01 and Constipation, unspecified constipation type K59.00 [facility] [address] [facility] [id number] [address] [place] [address] October, [facility] [address] [facility] [id number] [address] [place] [address] October, Thyroid nodule E04.1 [facility] [address] [facility] [id number] [address] [place] [address] October, Cold thyroid nodule E04.1 [facility] [address] [facility] [id number] [address] [place] [address] October, [facility] [address] [facility] [id number] [address] [place] [address] Sep, Thyroid nodule E04.1 [facility] [address] [facility] [id number] [address] [place] [address] Sep, Thyroid nodule E04.1 [facility] [address] [facility] [id number] [address] [place] [address] Sep, Thyroid nodule E04.1 ; Hyper tension I10 ; Esophageal reflux K21.9 and Hyperlipidemia, unspecified E78.5 [place] [address] [facility] [id number] [address] [place] [address] Aug, Other chronic pain G89.29 ; Sinusitis J32.9 and Hypertension I10 [place] [address] [facility] [id number] [address] [place] [address] Jul, [place] [address] [address] 15 Jul, 2015 [place] [address] [address] 10 Jul, 2015 Insomnia G47.00 and Arthralg ia M25.50 [place] [address] [place] [id number] [address] [place] [address] 10 Jul, 2015 Depressive disorder F32.9 an d Anxiety disorder, unspecified F41.9 [place] [address] [place] [id number] [address] [place] [address] May, Right-sided low back pain wi thout sciatica M54.5 and Depression F32.9 [place] [address] [place] [id number] [address] [place] [address] Apr, Hematuria R31.9 [place] [address] [place] [id number] [address] [place] [address] Mar, Other chronic pain G89.29 [place] [address] [place] [id number] [address] [place] [address] Mar, Other chronic pain G89.29 [facility] [address] [place] [id number] [address] [place] [address] Feb, [place] [address] [place] [id number] [place] [address] Feb, Other chronic pain 338.29 ; Dysuria 788.1 ; UTI (urinary tract infection) 599.0 ; Insomnia 780.52 ; Hot flashes 627.2 and Hypertension 401.9 [facility] [address] [facility] [id number] [address] [place] [address] Feb, Dysuria 788.1 [facility] [address] [facility] [id number] [address] [place] [address] Feb, [facility] [address] [facility] [id number] [address] [place] [address] Jan, [facility] [address] [facility] [id number] [address] [place] [address] Jan, [facility] [address] [place] [id number] [address] [place] [address] Jan, Fibromyalgia 729.1 ; Hyperte nsion 401.9 ; Dysthymia 300.4 and Hot flashes 627.2 [facility] [address] [facility] [id number] [address] [place] [address] Dec, [facility] [address] [facility] [id number] [address] [place] [address] Dec, [facility] [address] [facility] [id number] [address] [place] [address] Dec, [facility] [address] [facility] [id number] [address] [place] [address] Nov, Other chronic pain 338.29 [facility] [address] [id number] [address] [place] [address] October, [facility] [address] [facility] [id number] [address] [place] [address] October, [facility] [address] [facility] [id number] [address] [place] [address] Sep, [facility] [address] [id number] [address] [place] [address], [place] [address] 13 Sep, 2014 [facility] [address] [id number] [address] [place] [address], [place] [address] Aug, [facility] [address] [id number] [address] [place] [address], [place] [address] Aug, [facility] [address] [id number] [address] [place] [address], [place] [address] Aug, [facility] [address] [id number] [address] [place] [address], [place] [address] Aug, [facility] [address] [id number] [address] [place] [address], [place] [address] Aug, [facility] [address] [id number] [address] [place] [address], [place] [address] Aug, [facility] [address] [id number] [address] [place] [address], [place] [address] Aug, [facility] [address] [id number] [address] [place] [address], [place] [address] Aug, [facility] [address] [id number] [address] [place] [address], [place] [address] Aug, [facility] [address] [id number] [address] [place] [address], [place] [address] Aug, [facility] [address] [id number] [address] [place] [address], [place] [address] Aug, [facility] [address] [id number] [address] [place] [address], [place] [address] Aug, [facility] [address] [id number] [address] [place] [address], [place] [address] Aug, [facility] [address] [id number] [address] [place] [address], [place] [address] Aug, [facility] [address] [id number] [address] [place] [address], [place] [address] Jul, [facility] [address] [id number] [address] [place] [address], [place] [address] Jul, [facility] [address] [id number] [address] [place] [address], [place] [address] Jul, [facility] [address] [id number] [address] [place] [address], [place] [address] Jul, [facility] [address] [id number] [address] [place] [address], [place] [address] Jul, [facility] [address] [id number] [address] [place] [address], [place] [address] Jul, [facility] [address] [id number] [address] [place] [address], [place] [address] Jun, [facility] [address] [id number] [address] [place] [address], [place] [address] Jun, [facility] [address] [id number] [address] [place] [address], [place] [address] Jun, [facility] [address] [id number] [address] [place] [address], [place] [address] Jun, [facility] [address] [id number] [address] [place] [address], [place] [address] May, [facility] [address] [id number] [address] [place] [address], [place] [address] May, [facility] [address] [id number] [address] [place] [address], [place] [address] May, [facility] [address] [id number] [address] [place] [address], [place] [address] May, [facility] [address] [id number] [address] [place] [address], [place] [address] May, [facility] [address] [id number] [address] [place] [address], [place] [address] May, [facility] [address] [id number] [address] [place] [address], [place] [address] May, [facility] [address] [id number] [address] [place] [address], [place] [address] May, [facility] [address] [id number] [address] [place] [address], [place] [address] May, [facility] [address] [id number] [address] [place] [address], [place] [address] May, [facility] [address] [id number] [address] [place] [address], [place] [address] Apr, [facility] [address] [id number] [address] [place] [address], [place] [address] Apr, [facility] [address] [id number] [address] [place] [address], [place] [address] Apr, [facility] [address] [id number] [address] [place] [address], [place] [address] Apr, [facility] [address] [id number] [address] [place] [address], [place] [address] Apr, [facility] [address] [id number] [address] [place] [address], [place] [address] Apr, [facility] [address] [id number] [address] [place] [address], [place] [address] Apr, [facility] [address] [id number] [address] [place] [address], [place] [address] Apr, [facility] [address] [id number] [address] [place] [address], [place] [address] Apr, [facility] [address] [id number] [address] [place] [address], [place] [address] Mar, [facility] [address] [id number] [address] [place] [address], [place] [address] Mar, [facility] [address] [id number] [address] [place] [address], [place] [address] Mar, [facility] [address] [id number] [address] [place] [address], [place] [address] Mar, [facility] [address] [id number] [address] [place] [address], [place] [address] Mar, [facility] [address] [id number] [address] [place] [address], [place] [address] Mar, [facility] [address] [id number] [address] [place] [address], [place] [address] Mar, [facility] [address] [id number] [address] [place] [address], [place] [address] Mar, [facility] [address] [id number] [address] [place] [address], [place] [address] 30 Feb, 2013 [facility] [address] [id number] [address] [place] [address], [place] [address] 30 Feb, 2013 [facility] [address] [id number] [address] [place] [address], [place] [address] 24 Feb, 2013 [facility] [address] [id number] [address] [place] [address], [place] [address] 24 Feb, 2013 [facility] [address] [id number] [address] [place] [address], [place] [address] 22 Feb, 2013 [facility] [address] [id number] [address] [place] [address], [place] [address] 22 Feb, 2013 [facility] [address] [id number] [address] [place] [address], [place] [address] 10 Feb, 2013 [facility] [address] [id number] [address] [place] [address], [place] [address] 10 Feb, 2013 [facility] [address] [id number] [address] [place] [address], [place] [address] 03 Feb, 2013 [facility] [address] [id number] [address] [place] [address], [place] [address] 03 Feb, 2013 [facility] [address] [id number] [address] [place] [address], [place] [address] Feb, [facility] [address] [id number] [address] [place] [address], [place] [address] Feb, [facility] [address] [id number] [address] [place] [address], [place] [address] Feb, [facility] [address] [id number] [address] [place] [address], [place] [address] Feb, [facility] [address] [id number] [address] [place] [place] [address], [place] [address] Jan, [facility] [address] [id number] [address] [place] [address], [place] [address] Jan, [facility] [address] [id number] [address] [place] [address], [place] [address] Dec, [facility] [address] [id number] [address] [place] [address], [place] [address] Dec, [facility] [address] [id number] [address] [place] [address], [place] [address] Dec, [facility] [address] [id number] [address] [place] [address], [place] [address] Dec, [facility] [address] [id number] [address] [place] [address], [place] [id number] Dec, [facility] [address] [id number] [address] [place] [address], [place] [address] Dec, [facility] [address] [id number] [address] [place] [address], [place] [address] Dec, [facility] [address] [id number] [address] [place] [address], [place] [address] Dec, [facility] [address] [id number] [address] [place] [address], [place] [address] Dec, [facility] [address] [id number] [address] [place] [address], [place] [address] Dec, [facility] [address] [id number] [facility] [place] [address] 14 Dec, 2013 [facility] [address] [id number] [address] [place] [address], [place] [address] Dec, 2013 [facility] [address] [id number] [address] [place] [address], [place] [address] Dec, 2013 [facility] [address] [id number] [address] [place] [address], [place] [address] Dec, 2013 [facility] [address] [id number] [address] [place] [address], [place] [address] Dec, 2013 [facility] [address] [id number] [address] [place] [address], [place] [address] Dec, 2013 [facility] [address] [id number] [address] [place] [address], [place] [address] Dec, 2013 [facility] [address] [id number] [address] [place] [address], [place] [address] Dec, 2013 [facility] [address] [id number] [address] [place] [address], [place] [address] Dec, [facility] [address] [id number] [address] [place] [address], [place] [address] Nov, [facility] [address] [id number] [address] [place] [address], [place] [address] Nov, [facility] [address] [id number] [address] [place] [address], [place] [address] Nov, [facility] [address] [id number] [address] [place] [address], [place] [address] Nov, [facility] [address] [id number] [address] [place] [address], [place] [address] Nov, [facility] [address] [id number] [address] [place] [address], [place] [address] Nov, [facility] [address] [id number] [address] [place] [address], [place] [address] Nov, [facility] [address] [id number] [address] [place] [address], [place] [address] Nov, [facility] [address] [id number] [address] [place] [address], [place] [address] Nov, [facility] [address] [id number] [address] [place] [address], [place] [address] October, [facility] [address] [id number] [address] [place] [address], [place] [address] October, [facility] [address] [id number] [address] [place] [address], [place] [address] October, [facility] [address] [id number] [address] [place] [address], [place] [address] October, [facility] [address] [id number] [address] [place] [address], [place] [address] October, [facility] [address] [id number] [address] [place] [address], [place] [address] October, [facility] [address] [id number] [address] [place] [address], [place] [address] October, [facility] [address] [id number] [address] [place] [address], [place] [address] October, [facility] [address] [id number] [address] [place] [address], [place] [address] Sep, [facility] [address] [id number] [address] [place] [address], [place] [address] Sep, [facility] [address] [id number] [address] [place] [address], [place] [address] Sep, [facility] [address] [id number] [address] [place] [address], [place] [address] Sep, [facility] [address] [id number] [address] [place] [address], [place] [address] Sep, [facility] [address] [id number] [address] [place] [address], [place] [address] Sep, [facility] [address] [id number] [address] [place] [address], [place] [address] Sep, [facility] [address] [id number] [address] [place] [address], [place] [address] Aug, [facility] [address] [id number] [address] [place] [address], [place] [address] Aug, [facility] [address] [id number] [address] [place] [address], [place] [address] Aug, [facility] [address] [id number] [address] [place] [address], [place] [address] Aug, [facility] [address] [id number] [address] [place] [address], [place] [address] Aug, [facility] [address] [id number] [address] [place] [address], [place] [address] Aug, [facility] [address] [id number] [address] [place] [address], [place] [address] Jul, [facility] [address] [id number] [address] [place] [address], [place] [address] Jul, [facility] [address] [id number] [address] [place] [address], [place] [address] Jul, [facility] [address] [id number] [address] [place] [address], [place] [address] Jul, [facility] [address] [id number] [address] [place] [address], [place] [address] Jul, [facility] [address] [id number] [address] [place] [address], [place] [address] Jul, [facility] [address] [id number] [address] [place] [address], [place] [address] Jun, [facility] [address] [id number] [address] [place] [address], [place] [address] Jun, [facility] [address] [id number] [address] [place] [address], [place] [address] Jun, [facility] [address] [id number] [address] [place] [address], [place] [address] Jun, [facility] [address] [id number] [address] [place] [address], [place] [address] Jun, [facility] [address] [id number] [address] [place] [address], [place] [address] Jun, [facility] [address] [id number] [address] [place] [address], [place] [address] Jun, [facility] [address] [id number] [address] [place] [address], [place] [address] Jun, [facility] [address] [id number] [address] [place] [address], [place] [address] Jun, [facility] [address] [id number] [address] [place] [address], [place] [address] Jun, [facility] [address] [id number] [address] [place] [address], [place] [address] Jun, [facility] [address] [id number] [address] [place] [address], [place] [address] Jun, [facility] [address] [id number] [address] [place] [address], [place] [address] Jun, [facility] [address] [id number] [address] [place] [address], [place] [address] May, [facility] [address] [id number] [address] [place] [address], [place] [address] May, [facility] [address] [id number] [address] [place] [address], [place] [address] May, [facility] [address] [id number] [address] [place] [address], [place] [address] May, [facility] [address] [id number] [address] [place] [address], [place] [address] 26 May, 2013 [facility] [address] [id number] [address] [place] [address], [place] [address] 14 May, 2013 [facility] [address] [id number] [address] [place] [address], [place] [address] 14 May, 2013 [facility] [address] [id number] [address] [place] [address], [place] [address] May, [facility] [address] [id number] [address] [place] [address], [place] [address] May, [facility] [address] [id number] [address] [place] [address], [place] [address] May, [facility] [address] [id number] [address] [place] [address], [place] [address] May, [facility] [address] [id number] [address] [place] [address], [place] [address] May, [facility] [address] [id number] [address] [place] [address], [place] [address] 10 May, 2013 [facility] [address] [id number] [address] [place] [address], [place] [address] May, [facility] [address] [id number] [address] [place] [address], [place] [address] May, [facility] [address] [id number] [address] [place] [address], [place] [address] 08 May, 2013 [facility] [address] [id number] [address] [place] [address], [place] [address] 07 May, 2013 [facility] [address] [id number] [address] [place] [address], [place] [address] 06 May, 2013 [facility] [address] [id number] [address] [place] [address], [place] [address] 06 May, 2013 [facility] [address] [id number] [address] [place] [address], [place] [address] 06 May, 2013 [facility] [address] [id number] [address] [place] [address], [place] [address] May, [facility] [address] [id number] [address] [place] [address], [place] [address] Apr, [facility] [address] [id number] [address] [place] [address], [place] [address] Apr, [facility] [address] [id number] [address] [place] [address], [place] [address] Apr, [facility] [address] [id number] [address] [place] [address], [place] [address] Apr, [facility] [address] [id number] [address] [place] [address], [place] [address] Mar, [facility] [address] [id number] [address] [place] [address], [place] [address] 23 Feb, 2013 [facility] [address] [id number] [address] [place] [address], [place] [address] 16 Feb, 2013 [facility] [address] [id number] [address] [place] [address], [place] [address] 13 Feb, 2013 [facility] [address] [id number] [address] [place] [address], [place] [address] 10 Feb, 2013 [facility] [address] [id number] [address] [place] [address], [place] [address] 09 Feb, 2013 [facility] [address] [id number] [address] [place] [address], [place] [address] Feb, [facility] [address] [id number] [address] [place] [address], [place] [address] Jan, [facility] [address] [id number] [address] [place] [address], [place] [address] Jan, [facility] [address] [id number] [address] [place] [address], [place] [address] Jan, [facility] [address] [id number] [address] [place] [address], [place] [address] Dec, [facility] [address] [id number] [address] [place] [address], [place] [address] 17 Dec, 2012 [facility] [address] [id number] [address] [place] [address], [place] [address] 17 Dec, 2012 [facility] [address] [id number] [address] [place] [address], [place] [address] 15 Dec, 2012 [facility] [address] [id number] [address] [place] [address], [place] [address] Dec, [facility] [address] [id number] [address] [place] [address], [place] [address] Nov, [facility] [address] [id number] [address] [place] [address], [place] [address] Nov, [facility] [address] [id number] [address] [place] [address], [place] [address] Nov, [facility] [address] [id number] [address] [place] [address], [place] [address] Nov, [facility] [address] [id number] [address] [place] [address], [place] [address] Nov, [facility] [address] [id number] [address] [place] [address], [place] [address] 08 Nov, 2012 [facility] [address] [id number] [address] [place] [address], [place] [address] 07 Nov, 2012 [facility] [address] [id number] [address] [place] [address], [place] [address] 06 Nov, 2012 [facility] [address] [id number] [address] [place] [address], [place] [address] 05 Nov, 2012 [facility] [address] [id number] [address] [place] [address], [place] [address] 04 Nov, 2012 [facility] [address] [id number] [address] [place] [address], [place] [address] October, [facility] [address] [id number] [address] [place] [address] October, [facility] [address] [id number] [address] [place] [address], [place] [address] Sep, [facility] [address] [id number] [address] [place] [address], [place] [address] Sep, [facility] [address] [id number] [address] [place] [address], [place] [address] Sep, [facility] [address] [id number] [address] [place] [address], [place] [address] Sep, [facility] [address] [id number] [address] [place] [address], [place] [address] Sep, [facility] [address] [id number] [address] [place] [address], [place] [address] Aug, [facility] [address] [id number] [address] [place] [address], [place] [address] Aug, [facility] [address] [id number] [address] [place] [address], [place] [address] Jul, [facility] [address] [id number] [address] [place] [address], [place] [address] Jul, [facility] [address] [id number] [address] [place] [address], [place] [address] Jun, [facility] [address] [id number] [address] [place] [address], [place] [address] Jun, [facility] [address] [id number] [address] [place] [address], [place] [address] May, [facility] [address] [id number] [address] [place] [address], [place] [address] May, [facility] [address] [id number] [address] [place] [address], [place] [address] May, [facility] [address] [id number] [address] [place] [address], [place] [address] May, [facility] [address] [id number] [address] [place] [address], [place] [address] Apr, [facility] [address] [id number] [address] [place] [address], [place] [address] Apr, [facility] [address] [id number] [address] [place] [address], [place] [address] Apr, [facility] [address] [id number] [address] [place] [address], [place] [address] Apr, [facility] [address] [id number] [address] [place] [address], [place] [address] Apr, [facility] [address] [id number] [address] [place] [address], [place] [address] Apr, [facility] [address] [id number] [address] [place] [address], [place] [address] Apr, [facility] [address] [id number] [address] [place] [address], [place] [address] Apr, [facility] [address] [id number] [address] [place] [address], [place] [address] Apr, [facility] [address] [id number] [address] [place] [address], [place] [address] Mar, [facility] [address] [id number] [address] [place] [address], [place] [address] Mar, [facility] [address] [id number] [address] [place] [address], [place] [address] Feb, [facility] [address] [id number] [address] [place] [address], [place] [address] Jan, [facility] [address] [id number] [address] [place] [address], [place] [address] Jan, [facility] [address] [id number] [address] [place] [address], [place] [address] Dec, [facility] [address] [id number] [address] [place] [address], [place] [address] Nov, [facility] [address] [id number] [address] [place] [address], [place] [address] Nov, [facility] [address] [id number] [address] [place] [address], [place] [address] October, [facility] [address] [id number] [address] [place] [address], [place] [address] October, [facility] [address] [id number] [address] [place] [address], [place] [address] Sep, [facility] [address] [id number] [address] [place] [address], [place] [address] Sep, [facility] [address] [id number] [address] [place] [address], [place] [address] May, [facility] [address] [id number] [address] [place] [address], [place] [address] Apr, [facility] [address] [id number] [address] [place] [address], [place] [address] Apr, [facility] [address] [id number] [address] [place] [address], [place] [address] Apr, [facility] [address] [id number] [address] [place] [phone] Apr, [facility] [address] [id number] [address] [place] [phone] Apr, [facility] [address] [id number] [address] [place] [id number] 10 Apr, 2011 [facility] [address] [id number] [address] [place] [address], [place] [address] Apr, [facility] [address] [id number] [address] [place] [phone] Apr, [facility] [address] [id number] [address] [place] [address], [place] [address] Mar, [facility] [address] [id number] [address] [place] [id number] Mar, [facility] [address] [facility] [id number] [address] [place] [phone] Mar, [facility] [address] [facility] [id number] [address] [place] [id number] Mar, [facility] [address] [facility] [id number] [address] [place] [phone] Mar, [facility] [address] [facility] [id number] [address] [place] [id number] Mar, IMMUNIZATIONS No Known Immunizations SOCIAL HISTORY [...] tubal ligation Hospitalization History Mental floor at [facility]
--- OUTSIDE RECORDS SUMMARY | 2019-12-24 19:35 | XMS REPORT ---
Author Author Trey ANDRADE Organization [facility] Address [address] [place] [address] Care Team Providers Care Assistive Technology Specialist Name Role Phone SURESH ANDRADE Unavailable PROBLEMS Type Condition ICD9-CM Code [id number] Code Onset Dates Condition S tatus SNOMED Code Problem Unspecified epilepsy without mention of intractable ep ilepsy G40.909 Active 04820458 Problem Hypertension I10 Active 0339756 3 Problem Other chronic pain G89.29 Active 1 79016912 Problem Rheumatoid arthritis M06.9 Active 27307498 Problem Hyperlipidemia, unspecified E78.5 Ac tive 67024520 Problem Depressive disorder F32.9 Active 55474186 Problem Esophageal reflux K21.9 Active 23 7069871 Problem Carpal tunnel syndrome of left wrist G56.02 Active 588763139147938 Problem Presbyopia H52.4 Active 51278294 Problem Cough R05 Active 76736823 Problem Nondependent 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 Ac tive 565212183 Problem Unspecified open-angle glaucoma, stage unspecified H40.10X0 Feb, Active 01167626 Problem Anxiety disorder, unspecified F41.9 Active 123581794 Problem Insomnia G47.00 Active 393280085 Problem Neuropathy G62.9 Active 842720205 Problem Thyroid nodule E04.1 Active 17235 5005 Problem Multinodular goiter E04.2 Active 421076966 Problem Chronic tension-type headache, intractable G44.221 Active 819646769 Problem Acquired hypothyroidism E03.9 Active 221894928 Problem Goiter E04.9 Active 6553711 Problem Chronic obstructive pulmonary disease, unspecified COPD ty pe J44.9 Active 39576065 Problem Reactive airway disease with out complication, unspecified asthma severity, unspecified whether persistent J45.909 Active 742580292542 Problem BMI 40.0-44.9, adult Z68.41 Active 971474079 Problem Essential hypertension I10 Active 13828457 Problem Right-sided low back pain without sciatica M54.5 Active 076669374 Problem Tension headache G44.209 Active 398 164699 Problem Depression F32.9 Active 66261750 Problem Arthralgia M25.50 Active 42679124 Problem Urge incontinence of urine N39.41 Act chen 95572039 Problem Abnormal laboratory test R89.9 Activ e 201210220 Problem COPD with exacerbation J44.1 Active 238031986 Problem Seasonal allergic rhinitis due to pollen J30.1 Active 89784574 ALLERGIES No Information ENCOUNTERS Encounter Location Date Diagnosis [facility] [address] [place] [id number] [place] [address] October, [facility] [address] [address] October, Thyroid nodule E04.1 and Mul tinodular goiter E04.2 [facility] [id number] [place] [id number] October, [facility] [address] [address] October, Thyroid nodule E04.1 and Mul tinodular goiter E04.2 [facility] [address] [address] Sep, Thyroid nodule E04.1 [facility] [address] [address] Sep, [facility] [address] [address] Sep, Counseled by nurse Z71.9 and Thyroid nodule E04.1 [facility] [address] [address] Sep, Acquired hypothyroidism E03. 9 ; Tension headache G44.209 ; Essential hypertension I10 ; Multinodular goiter E04.2 and BMI 40.0-44.9, adult Z68.41 [facility] [address] [address] Aug, Pelvic pain R10.2 ; Other sp ecified bacterial agents as the cause of diseases classified elsewhere B96.89 and Acute vaginitis N76.0 [place] [address] [address] [facility] [id number] [address] [place] [address] Apr, Bronchitis J40 [place] [address] [address] [facility] [id number] [address] [place] [address] Apr, Acute gastritis without hemo rrhage, unspecified gastritis type K29.00 [place] [address] [address] [facility] [id number] [address] [place] [address] Mar, [place] [address] [facility] [id number] [place] [address] Feb, [place] [address] [facility] [id number] [address] [place] [address] Feb, Mass of right side of neck R 22.1 and Multinodular goiter E04.2 [facility] [place] [address] [address] [facility] [id number] [address] [place] [address] Jan, Bronchitis J40 [place] [address] [facility] [id number] [address] [place] [address] October, Acquired hypothyroidism E03. 9 [place] [address] [address] [facility] [id number] [address] [place] [address] October, Acute gastritis without hemo rrhage, unspecified gastritis type K29.00 ; Epigastric pain R10.13 ; Essential hypertension I10 ; Screening for colon cancer Z12.11 and BMI 40.0-44.9, adult Z68.41 [place] [address] [address] [facility] [id number] [address] [place] [address] October, [facility] [address] [facility] [id number] [address] [place] [address] October, Chest pain R07.9 and Morbid obesity E66.01 [facility] [place] [address] [address] [place] [id number] [address] [place] [address] Sep, Generalized abdominal pain R 10.84 ; Morbid obesity E66.01 ; Non-intractable vomiting with nausea, unspecified vomiting type R11.2 and Seasonal allergic rhinitis due to pollen J30.1 [facility] [address] [facility] [id number] [address] [place] [address] 28 Jul, 2018 COPD with exacerbation J44.1 ; Viral upper respiratory tract infection J06.9 and Morbid obesity E66.01 [facility] [id number] [place] [address] Jun, Viral upper respiratory trac t infection J06.9 [facility] [address] [place] [id number] [place] [address] Apr, Abnormal laboratory test R89 .9 [place] [address] [place] [id number] [place] [address] Apr, Abnormal laboratory test R89 .9 [place] [address] [place] [id number] [place] [address] Apr, Abnormal laboratory test R89 .9 [place] [address] [place] [id number] [place] [address] Apr, [facility] [address] [place] [id number] [address] [place] [address] Apr, [place] [address] [address] Apr, Nonintractable episodic head ache, unspecified headache type R51 ; Urge incontinence of urine N39.41 ; BMI 40.0-44.9, adult Z68.41 ; Myalgia M79.10 and Acute cystitis without hematuria N30.00 [facility] [address] [place] [id number] [address] [place] [address] Mar, Nasal congestion R09.81 ; Lo w back pain M54.5 ; Reactive airway disease without complication, unspecified asthma severity, unspecified whether persistent J45.909 ; Other chronic pain G89.29 ; Acute cystitis with hematuria N30.01 and BMI 40.0-44.9, adult Z68.41 [facility] [address] [address] Mar, Acute cystitis with hematuri a N30.01 [facility] [address] [address] Mar, BMI 40.0-44.9, adult Z68.41 ; Acute cystitis with hematuria N30.01 ; Acute bilateral low back pain without sciatica M54.5 and Nausea R11.0 [place] [address] [address] Mar, Hypertension I10 ; Acquired hypothyroidism E03.9 ; Esophageal reflux K21.9 ; Chronic obstructive pulmonary disease, unspecified COPD type J44.9 and BMI 40.0-44.9, adult Z68.[address] [address] Mar, Hypertension I10 [place] [address] [address] Nov, Hyperlipidemia, unspecified E78.[address] [address] October, Chest pain, unspecified type R07.9 and Acquired hypothyroidism E03.[address] [address] October, Chest pain, unspecified type R07.9 ; Family history of coronary artery disease Z82.49 ; Carpal tunnel syndrome of left wrist G56.02 ; Hypertension I10 ; Esophageal reflux K21.9 ; Arthralgia M25.50 ; Acquired hypothyroidism E03.9 ; Cough R05 ; Nausea R11.0 ; Weight gain R63.5 and BMI 45.0-49.9, adult Z68.[address] [address] Jun, Acquired hypothyroidism E03. 9 and Cough R05 [place] [address] [address] May, [place] [address] [address] Feb, Tarsal tunnel syndrome of timi th lower extremities G57.53 and Neuropathy G62.9 [place] [address] [address] Dec, Pleuritis R09.1 [place] [address] [address] Nov, [place] [address] [address] October, Arthralgia, unspecified join t M25.50 and Allergy, initial encounter T78.40XA [place] [address] [address] October, [place] [address] [address] October, Acute recurrent maxillary si nusitis J01.01 and Arthralgia M25.50 [place] [address] [address] Sep, Pharyngitis due to other org anism J02.8 [place] [address] [place] [id number] [place] [address] Aug, Acute nasopharyngitis J00 [place] [address] [address] Aug, Multinodular goiter E04.2 [place] [address] [place] [id number] [place] [address] Aug, Thyroid nodule E04.1 [place] [address] [address] Jul, Tarsal tunnel syndrome of timi th lower extremities G57.53 [place] [address] [address] Jun, Pneumonia due to infectious organism, unspecified laterality, unspecified part of lung J18.9 [place] [address] [address] Jun, Bronchospasm with bronchitis , acute J20.9 [place] [address] [address] May, Acute non-recurrent frontal sinusitis J01.[address] [address] May, Flat foot [pes planus] (acqu ired), left foot M21.42 ; Flat foot [pes planus] (acquired), right foot M21.41 and Neuropathy G62.[address] [address] Apr, Chronic tension-type headach e, intractable G44.221 ; Right lower quadrant abdominal pain R10.31 ; Cervicalgia M54.2 ; Acute gastritis without hemorrhage, unspecified gastritis type K29.00 and Hypertension I10 [address] [address] Mar, Depression F32.9 and Anxiety disorder, unspecified F41.9 [place] [address] [address] Feb, Depressive disorder F32.9 an d Anxiety disorder, unspecified F41.[address] [address] Jan, Dysuria R30.0 ; Lower abdomi nal pain R10.30 ; Acute bilateral low back pain without sciatica M54.5 ; Nausea and vomiting, unspecified intactability, vomiting of unspecified type R11.2 ; Pain in right foot M79.671 and Pain of left foot M79.672 [facility] [address] [facility] [id number] [address] [place] [address] Dec, Urinary tract infection, sit e not specified N39.0 [facility] [address] [id number] [address] [place] [address] Dec, [facility] [address] [facility] [id number] [address] [place] [address] Nov, [facility] [address] [facility] [id number] [address] [place] [address] Nov, Dysuria R30.0 [facility] [address] [facility] [id number] [address] [place] [address] Nov, Dysuria R30.0 and Acute cyst itis with hematuria N30.01 [facility] [address] [facility] [id number] [address] [place] [address] October, Nausea R11.0 [facility] [address] [facility] [id number] [address] [place] [address] October, Thyroid nodule E04.1 ; Carpa l tunnel syndrome, left upper limb G56.02 ; Carpal tunnel syndrome, right upper limb G56.01 and Constipation, unspecified constipation type K59.00 [facility] [address] [facility] [id number] [address] [place] [address] October, [facility] [address] [facility] [id number] [address] [place] [address] October, Thyroid nodule E04.1 [facility] [address] [facility] [id number] [address] [place] [address] October, Cold thyroid nodule E04.1 [facility] [address] [facility] [id number] [address] [place] [address] October, [facility] [address] [facility] [id number] [address] [place] [address] Sep, Thyroid nodule E04.1 [facility] [address] [place] [id number] [address] [place] [address] Sep, Thyroid nodule E04.1 [place] [address] [place] [id number] [place] [address] Sep, Thyroid nodule E04.1 ; Hyper tension I10 ; Esophageal reflux K21.9 and Hyperlipidemia, unspecified E78.5 [place] [address] [place] [id number] [place] [address] Aug, Other chronic pain G89.29 ; Sinusitis J32.9 and Hypertension I10 [place] [address] [place] [id number] [place] [address] Jul, [place] [address] [address] 15 Jul, 2015 [place] [address] [address] 10 Jul, 2015 Insomnia G47.00 and Arthralg ia M25.50 [place] [address] [address] 10 Jul, 2015 Depressive disorder F32.9 an d Anxiety disorder, unspecified F41.9 [place] [address] [place] [id number] [place] [address] May, Right-sided low back pain wi thout sciatica M54.5 and Depression F32.9 [place] [address] [place] [address] Apr, Hematuria R31.9 [place] [address] [place] [id number] [address] [place] [address] Mar, Other chronic pain G89.29 [place] [address] [place] [id number] [place] [address] Mar, Other chronic pain G89.29 [place] [address] [place] [id number] [place] [address] Feb, [place] [address] [id number] [address] [place] [address] Feb, Other chronic pain 338.29 ; Dysuria 788.1 ; UTI (urinary tract infection) 599.0 ; Insomnia 780.52 ; Hot flashes 627.2 and Hypertension 401.9 [facility] [address] [facility] [id number] [address] [place] [address] Feb, Dysuria 788.1 [facility] [address] [facility] [id number] [address] [place] [address] Feb, [facility] [address] [facility] [id number] [address] [place] [address] Jan, [facility] [address] [facility] [id number] [address] [place] [address] Jan, [facility] [address] [place] [id number] [address] [place] [address] Jan, Fibromyalgia 729.1 ; Hyperte nsion 401.9 ; Dysthymia 300.4 and Hot flashes 627.2 [facility] [address] [facility] [id number] [address] [place] [address] Dec, [facility] [address] [facility] [id number] [address] [place] [address] Dec, [facility] [address] [facility] [id number] [address] [place] [address] Dec, [facility] [address] [facility] [id number] [address] [place] [address] Nov, Other chronic pain 338.29 [facility] [address] [facility] [id number] [address] [place] [address] October, [facility] [address] [facility] [id number] [address] [place] [address] October, [facility] [address] [facility] [id number] [address] [place] [address] Sep, [facility] [address] [id number] [facility] [place] [address] 13 Sep, 2014 [facility] [address] [id number] [address] [place] [address], [place] [address] Aug, [facility] [address] [id number] [address] [place] [address], [place] [address] Aug, [facility] [address] [id number] [address] [place] [address], [place] [address] Aug, [facility] [address] [id number] [address] [place] [address], [place] [address] Aug, [facility] [address] [id number] [address] [place] [address], [place] [address] Aug, [facility] [address] [id number] [address] [place] [address], [place] [address] Aug, [facility] [address] [id number] [address] [place] [address], [place] [address] Aug, [facility] [address] [id number] [address] [place] [address], [place] [address] Aug, [facility] [address] [id number] [address] [place] [address], [place] [address] Aug, [facility] [address] [id number] [address] [place] [address], [place] [address] Aug, [facility] [address] [id number] [address] [place] [address], [place] [address] Aug, [facility] [address] [id number] [address] [place] [address], [place] [address] Aug, [facility] [address] [id number] [address] [place] [address], [place] [address] Aug, [facility] [address] [id number] [address] [place] [address], [place] [address] Aug, [facility] [address] [id number] [address] [place] [address], [place] [address] Jul, [facility] [address] [id number] [address] [place] [address], [place] [address] Jul, [facility] [address] [id number] [address] [place] [address], [place] [address] Jul, [facility] [address] [id number] [address] [place] [address], [place] [address] Jul, [facility] [address] [id number] [address] [place] [address], [place] [address] Jul, [facility] [address] [id number] [address] [place] [address], [place] [address] Jul, [facility] [address] [id number] [address] [place] [address], [place] [address] Jun, [facility] [address] [id number] [address] [place] [address], [place] [address] Jun, [facility] [address] [id number] [address] [place] [address], [place] [address] Jun, [facility] [address] [id number] [address] [place] [address], [place] [address] Jun, [facility] [address] [id number] [address] [place] [address], [place] [address] May, [facility] [address] [id number] [address] [place] [address], [place] [address] May, [facility] [address] [id number] [address] [place] [address], [place] [address] May, [facility] [address] [id number] [address] [place] [address], [place] [address] May, [facility] [address] [id number] [address] [place] [address], [place] [address] May, [facility] [address] [id number] [address] [place] [address], [place] [address] May, [facility] [address] [id number] [address] [place] [address], [place] [address] May, [facility] [address] [id number] [address] [place] [address], [place] [address] May, [facility] [address] [id number] [address] [place] [address], [place] [address] May, [facility] [address] [id number] [address] [place] [address], [place] [address] May, [facility] [address] [id number] [address] [place] [address], [place] [address] Apr, [facility] [address] [id number] [address] [place] [address], [place] [address] Apr, [facility] [address] [id number] [address] [place] [address], [place] [address] Apr, [facility] [address] [id number] [address] [place] [address], [place] [address] Apr, [facility] [address] [id number] [address] [place] [address], [place] [address] Apr, [facility] [address] [id number] [address] [place] [address], [place] [address] Apr, [facility] [address] [id number] [address] [place] [address], [place] [address] Apr, [facility] [address] [id number] [address] [place] [address], [place] [address] Apr, [facility] [address] [id number] [address] [place] [address], [place] [address] Apr, [facility] [address] [id number] [address] [place] [address], [place] [address] Mar, [facility] [address] [id number] [address] [place] [address], [place] [address] Mar, [facility] [address] [id number] [address] [place] [address], [place] [address] Mar, [facility] [address] [id number] [address] [place] [address], [place] [address] Mar, [facility] [address] [id number] [address] [place] [address], [place] [address] Mar, [facility] [address] [id number] [address] [place] [address], [place] [address] Mar, [facility] [address] [id number] [address] [place] [address], [place] [address] Mar, [facility] [address] [id number] [address] [place] [address], [place] [address] Mar, [facility] [address] [id number] [address] [place] [address], [place] [address] 30 Feb, 2014 [facility] [address] [id number] [address] [place] [address], [place] [address] 30 Feb, 2013 [facility] [address] [id number] [address] [place] [address], [place] [address] 24 Feb, 2013 [facility] [address] [id number] [address] [place] [address], [place] [address] 24 Feb, 2013 [facility] [address] [id number] [address] [place] [address], [place] [address] 22 Feb, 2013 [facility] [address] [id number] [address] [place] [address], [place] [address] 22 Feb, 2013 [facility] [address] [id number] [address] [place] [address], [place] [address] 10 Feb, 2013 [facility] [address] [id number] [address] [place] [address], [place] [address] 10 Feb, 2013 [facility] [address] [id number] [address] [place] [address], [place] [address] 03 Feb, 2013 [facility] [address] [id number] [address] [place] [address], [place] [address] 03 Feb, 2013 [facility] [address] [id number] [address] [place] [address] [place] [address] Feb, 2013 [facility] [address] [id number] [facility] [place] [address] Feb, 2013 [facility] [address] [id number] [address] [place] [address], [place] [address] Feb, [facility] [address] [id number] [address] [place] [address], [place] [address] Feb, [facility] [address] [id number] [address] [place] [address], [place] [address] Jan, [facility] [address] [id number] [address] [place] [address], [place] [address] Jan, [facility] [address] [id number] [address] [place] [address], [place] [address] Dec, [facility] [address] [id number] [address] [place] [address], [place] [address] Dec, [facility] [address] [id number] [address] [place] [address], [place] [address] Dec, [facility] [address] [id number] [address] [place] [address], [place] [address] Dec, [facility] [address] [id number] [address] [place] [address], [place] [id number] Dec, [facility] [address] [id number] [address] [place] [address], [place] [address] Dec, [facility] [address] [id number] [address] [place] [address], [place] [address] Dec, [facility] [address] [id number] [address] [place] [address], [place] [address] Dec, [facility] [address] [id number] [address] [place] [address], [place] [address] Dec, [facility] [address] [id number] [address] [place] [address], [place] [address] Dec, [facility] [address] [id number] [facility] [place] [address] 14 Dec, 2013 [facility] [address] [id number] [facility] [place] [address] Dec, 2013 [facility] [address] [id number] [address] [place] [address], [place] [address] Dec, 2013 [facility] [address] [id number] [address] [place] [address], [place] [address] Dec, 2013 [facility] [address] [id number] [address] [place] [address], [place] [address] Dec, 2013 [facility] [address] [id number] [address] [place] [address], [place] [address] Dec, 2013 [facility] [address] [id number] [address] [place] [address], [place] [address] Dec, 2013 [facility] [address] [id number] [address] [place] [address], [place] [address] Dec, [facility] [address] [id number] [address] [place] [address], [place] [address] Dec, [facility] [address] [id number] [address] [place] [address], [place] [address] Nov, [facility] [address] [id number] [address] [place] [address], [place] [address] Nov, [facility] [address] [id number] [address] [place] [address], [place] [address] Nov, [facility] [address] [id number] [address] [place] [address], [place] [address] Nov, [facility] [address] [id number] [address] [place] [address], [place] [address] Nov, [facility] [address] [id number] [address] [place] [address], [place] [address] Nov, [facility] [address] [id number] [address] [place] [address], [place] [address] Nov, [facility] [address] [id number] [facility] [place] [address] Nov, [facility] [address] [id number] [facility] [place] [address] Nov, [facility] [address] [id number] [address] [place] [address], [place] [address] October, [facility] [address] [id number] [address] [place] [address], [place] [address] October, [facility] [address] [id number] [address] [place] [address], [place] [address] October, [facility] [address] [id number] [address] [place] [address], [place] [address] October, [facility] [address] [id number] [address] [place] [address], [place] [address] October, [facility] [address] [id number] [address] [place] [address], [place] [address] October, [facility] [address] [id number] [address] [place] [address], [place] [address] October, [facility] [address] [id number] [address] [place] [address], [place] [address] October, [facility] [address] [id number] [address] [place] [address], [place] [address] Sep, [facility] [address] [id number] [address] [place] [address], [place] [address] Sep, [facility] [address] [id number] [address] [place] [address], [place] [address] Sep, [facility] [address] [id number] [address] [place] [address], [place] [address] Sep, [facility] [address] [id number] [address] [place] [address], [place] [address] Sep, [facility] [address] [id number] [address] [place] [address], [place] [address] Sep, [facility] [address] [id number] [address] [place] [address], [place] [address] Sep, [facility] [address] [id number] [address] [place] [address], [place] [address] Aug, [facility] [address] [id number] [address] [place] [address], [place] [address] Aug, [facility] [address] [id number] [address] [place] [address], [place] [address] Aug, [facility] [address] [id number] [address] [place] [address], [place] [address] Aug, [facility] [address] [id number] [address] [place] [address], [place] [address] Aug, [facility] [address] [id number] [address] [place] [address], [place] [address] Aug, [facility] [address] [id number] [address] [place] [address], [place] [address] Jul, [facility] [address] [id number] [address] [place] [address], [place] [address] Jul, [facility] [address] [id number] [address] [place] [address], [place] [address] Jul, [facility] [address] [id number] [address] [place] [address], [place] [address] Jul, [facility] [address] [id number] [address] [place] [address], [place] [address] Jul, [facility] [address] [id number] [address] [place] [address], [place] [address] Jul, [facility] [address] [id number] [address] [place] [address], [place] [address] Jun, [facility] [address] [id number] [address] [place] [address], [place] [address] Jun, [facility] [address] [id number] [address] [place] [address], [place] [address] Jun, [facility] [address] [id number] [address] [place] [address], [place] [address] Jun, [facility] [address] [id number] [address] [place] [address], [place] [address] Jun, [facility] [address] [id number] [address] [place] [address], [place] [address] Jun, [facility] [address] [id number] [address] [place] [address], [place] [address] Jun, [facility] [address] [id number] [address] [place] [address], [place] [address] Jun, [facility] [address] [id number] [address] [place] [address], [place] [address] Jun, [facility] [address] [id number] [address] [place] [address], [place] [address] Jun, [facility] [address] [id number] [address] [place] [address], [place] [address] Jun, [facility] [address] [id number] [address] [place] [address], [place] [address] Jun, [facility] [address] [id number] [address] [place] [address], [place] [address] Jun, [facility] [address] [id number] [address] [place] [address], [place] [address] May, [facility] [address] [id number] [address] [place] [address], [place] [address] May, [facility] [address] [id number] [address] [place] [address], [place] [address] May, [facility] [address] [id number] [address] [place] [address], [place] [address] May, [facility] [address] [id number] [address] [place] [address], [place] [address] 26 May, 2013 [facility] [address] [id number] [address] [place] [address], [place] [address] 14 May, 2013 [facility] [address] [id number] [address] [place] [address], [place] [address] 14 May, 2013 [facility] [address] [id number] [address] [place] [address], [place] [address] 12 May, 2013 [facility] [address] [id number] [address] [place] [address], [place] [address] 12 May, 2013 [facility] [address] [id number] [address] [place] [address], [place] [address] May, [facility] [address] [id number] [address] [place] [address], [place] [address] May, [facility] [address] [id number] [address] [place] [address], [place] [address] 10 May, 2013 [facility] [address] [id number] [address] [place] [address], [place] [address] 10 May, 2013 [facility] [address] [id number] [address] [place] [address], [place] [address] 09 May, 2013 [facility] [address] [id number] [address] [place] [address], [place] [address] 09 May, 2013 [facility] [address] [id number] [address] [place] [address], [place] [address] 08 May, 2013 [facility] [address] [id number] [address] [place] [address], [place] [address] 07 May, 2013 [facility] [address] [id number] [address] [place] [address], [place] [address] 06 May, 2013 [facility] [address] [id number] [address] [place] [address], [place] [address] 06 May, 2013 [facility] [address] [id number] [address] [place] [address], [place] [address] 06 May, 2013 [facility] [address] [id number] [address] [place] [address], [place] [address] May, [facility] [address] [id number] [address] [place] [address], [place] [address] Apr, [facility] [address] [id number] [address] [place] [address], [place] [address] Apr, [facility] [address] [id number] [address] [place] [address], [place] [address] Apr, [facility] [address] [id number] [address] [place] [address], [place] [address] Apr, [facility] [address] [id number] [address] [place] [address], [place] [address] Mar, [facility] [address] [id number] [address] [place] [address], [place] [address] 23 Feb, 2013 [facility] [address] [id number] [address] [place] [address], [place] [address] 16 Feb, 2013 [facility] [address] [id number] [address] [place] [address], [place] [address] 13 Feb, 2013 [facility] [address] [id number] [address] [place] [address], [place] [address] 10 Feb, 2013 [facility] [address] [id number] [address] [place] [address], [place] [address] Feb, [facility] [address] [id number] [address] [place] [address], [place] [address] Feb, [facility] [address] [id number] [address] [place] [address], [place] [address] Jan, [facility] [address] [id number] [address] [place] [address], [place] [address] Jan, [facility] [address] [id number] [address] [place] [address], [place] [address] Jan, [facility] [address] [id number] [address] [place] [address], [place] [address] 17 Dec, 2012 [facility] [address] [id number] [facility] [place] [address] 17 Dec, 2012 [facility] [address] [id number] [address] [place] [address], [place] [address] 17 Dec, 2012 [facility] [address] [id number] [address] [place] [address], [place] [address] 15 Dec, 2012 [facility] [address] [id number] [address] [place] [address], [place] [address] Dec, [facility] [address] [id number] [address] [place] [address], [place] [address] Nov, [facility] [address] [id number] [address] [place] [address], [place] [address] Nov, [facility] [address] [id number] [address] [place] [address], [place] [address] Nov, [facility] [address] [id number] [address] [place] [address], [place] [address] Nov, [facility] [address] [id number] [address] [place] [address], [place] [address] Nov, [facility] [address] [id number] [address] [place] [address], [place] [address] 08 Nov, 2012 [facility] [address] [id number] [address] [place] [address], [place] [address] 07 Nov, 2012 [facility] [address] [id number] [address] [place] [address], [place] [address] 06 Nov, 2012 [facility] [address] [id number] [address] [place] [address], [place] [address] 05 Nov, 2012 [facility] [address] [id number] [address] [place] [address], [place] [address] 04 Nov, 2012 [facility] [address] [id number] [address] [place] [address], [place] [address] October, [facility] [address] [id number] [address] [place] [address], [place] [address] October, [facility] [address] [id number] [address] [place] [address], [place] [address] Sep, [facility] [address] [id number] [address] [place] [address], [place] [address] Sep, [facility] [address] [id number] [address] [place] [address], [place] [address] Sep, [facility] [address] [id number] [address] [place] [address], [place] [address] Sep, [facility] [address] [id number] [address] [place] [address], [place] [address] Sep, [facility] [address] [id number] [address] [place] [address], [place] [address] Aug, [facility] [address] [id number] [address] [place] [address], [place] [address] Aug, [facility] [address] [id number] [address] [place] [address], [place] [address] Jul, [facility] [address] [id number] [address] [place] [address], [place] [address] Jul, [facility] [address] [id number] [address] [place] [address], [place] [address] Jun, [facility] [address] [id number] [address] [place] [address], [place] [address] Jun, [facility] [address] [id number] [address] [place] [address], [place] [address] May, [facility] [address] [id number] [address] [place] [address], [place] [address] May, [facility] [address] [id number] [address] [place] [address], [place] [address] May, [facility] [address] [id number] [address] [place] [address], [place] [address] May, [facility] [address] [id number] [address] [place] [address], [place] [address] Apr, [facility] [address] [id number] [address] [place] [address], [place] [address] Apr, [facility] [address] [id number] [address] [place] [address], [place] [address] Apr, [facility] [address] [id number] [address] [place] [address], [place] [address] Apr, [facility] [address] [id number] [address] [place] [address], [place] [address] Apr, [facility] [address] [id number] [address] [place] [address], [place] [address] Apr, [facility] [address] [id number] [address] [place] [address], [place] [address] Apr, [facility] [address] [id number] [address] [place] [address] Apr, [facility] [address] [id number] [address] [place] [address], [place] [address] Apr, [facility] [address] [id number] [address] [place] [address] Mar, [facility] [address] [id number] [address] [place] [address] Mar, [facility] [address] [id number] [address] [place] [address] Feb, [facility] [address] [id number] [address] [place] [address], [place] [address] Jan, [facility] [address] [id number] [address] [place] [address] Jan, [facility] [address] [id number] [address] [place] [address] Dec, [facility] [address] [id number] [address] [place] [address] Nov, [facility] [address] [id number] [address] [place] [address], [place] [address] Nov, [facility] [address] [id number] [address] [place] [address], [place] [address] October, [facility] [address] [id number] [address] [place] [address], [place] [address] October, [facility] [address] [id number] [address] [place] [address], [place] [address] Sep, [facility] [address] [id number] [address] [place] [address], [place] [address] Sep, [facility] [address] [id number] [address] [place] [address], [place] [address] May, [facility] [address] [id number] [address] [place] [address] Apr, [facility] [address] [id number] [address] [place] [address], [place] [address] Apr, [facility] [address] [id number] [address] [place] [address], [place] [address] Apr, [facility] [address] [id number] [address] [place] [address] Apr, [facility] [address] [id number] [address] [place] [address], [place] [address] Apr, [facility] [address] [id number] [address] [place] [id number] Apr, [facility] [address] [id number] [address] [place] [address], [place] [phone] Apr, [facility] [address] [id number] [address] [place] [address], [place] [phone] Apr, [facility] [address] [id number] [address] [place] [address], [place] [id number] Mar, [facility] [address] [facility] [id number] [address] [place] [phone] Mar, [facility] [address] [facility] [id number] [address] [place] [id number] Mar, [facility] [address] [facility] [id number] [address] [place] [phone] Mar, [facility] [address] [facility] [id number] [address] [place] [phone] Mar, [facility] [address] [facility] [id number] [address] [place] [phone] Mar, IMMUNIZATIONS No Known Immunizations SOCIAL HISTORY Never Assessed REASON FOR VISIT PLAN OF CARE VITAL SIGNS Height 62 in 2013-05-22 Weight 234 lbs 2013-05-22 Temperature 98 degrees Fahrenheit 2013-05-22 Heart Rate 72 bpm 2013-05-22 Respiratory Rate 14 2013-05-22 Blood pressure systolic 132 mmHg 2013-05-22 Blood pressure diastolic 78 mmHg 2013-05-22 MEDICATIONS Unknown Medications RESULTS No Results PROCEDURES No Known procedures INSTRUCTIONS MEDICATIONS ADMINISTERED No Known Medications MEDICAL (GENERAL) HISTORY Type Description Date Medical History HTN Medical History Depression Medical History Arthritis Medical History COPD Surgical History Breast lump removed Surgical History Removal of cyst from ovary Surgical History cholecystectomy Surgical History Stomach surgeryx3 Surgical History tubal ligation Hospitalization History Mental floor at [facility]
--- OUTSIDE RECORDS SUMMARY | 2019-12-24 19:35 | XMS REPORT ---
Author Author Trey ANDRADE [facility] Address [address] [place] [address] Care Team Providers Care Intelligence Officer Name Role Phone SURESH ANDRADE Unavailable PROBLEMS Type Condition ICD9-CM Code [id number] Code Onset Dates Condition S tatus SNOMED Code Problem Unspecified epilepsy without mention of intractable ep ilepsy G40.909 Active 58040901 Problem Hypertension I10 Active 6604941 3 Problem Other chronic pain G89.29 Active 1 44314374 Problem Rheumatoid arthritis M06.9 Active 56131392 Problem Hyperlipidemia, unspecified E78.5 Ac tive 99609034 Problem Depressive disorder F32.9 Active 03986557 Problem Esophageal reflux K21.9 Active 23 5461772 Problem Carpal tunnel syndrome of left wrist G56.02 Active 963908889645905 Problem Presbyopia H52.4 Active 27818646 Problem Cough R05 Active 75427334 Problem Nondependent 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 Ac tive 898216886 Problem Unspecified open-angle glaucoma, stage unspecified H40.10X0 Feb, Active 52824410 Problem Anxiety disorder, unspecified F41.9 Active 138705794 Problem Insomnia G47.00 Active 283820322 Problem Neuropathy G62.9 Active 140518581 Problem Thyroid nodule E04.1 Active 78507 5005 Problem Multinodular goiter E04.2 Active 509775289 Problem Chronic tension-type headache, intractable G44.221 Active 271299462 Problem Acquired hypothyroidism E03.9 Active 970792372 Problem Goiter E04.9 Active 5793293 Problem Chronic obstructive pulmonary disease, unspecified COPD ty pe J44.9 Active 11641413 Problem Reactive airway disease with out complication, unspecified asthma severity, unspecified whether persistent J45.909 Active 266949738402 Problem BMI 40.0-44.9, adult Z68.41 Active 198731527 Problem Essential hypertension I10 Active 98047879 Problem Right-sided low back pain without sciatica M54.5 Active 059338087 Problem Tension headache G44.209 Active 398 726049 Problem Depression F32.9 Active 27638810 Problem Arthralgia M25.50 Active 61973108 Problem Urge incontinence of urine N39.41 Act chen 33510035 Problem Abnormal laboratory test R89.9 Activ e 478475858 Problem COPD with exacerbation J44.1 Active 986109156 Problem Seasonal allergic rhinitis due to pollen J30.1 Active 92153403 ALLERGIES No Information ENCOUNTERS Encounter Location Date Diagnosis [facility] [address] [place] [id number] [address] [place] [address] October, [facility] [address] [address] October, Thyroid nodule E04.1 and Mul tinodular goiter E04.2 [facility] [id number] [place] [id number] October, [facility] [address] [address] October, Thyroid nodule E04.1 and Mul tinodular goiter E04.2 [facility] [address] [address] Sep, [facility] [address] [address] Sep, Thyroid nodule E04.1 [facility] [address] [id number] [address] [place] [address] Sep, Counseled by nurse Z71.9 [address] E[address]1 [facility] [address] [address] Sep, Acquired hypothyroidism E03. 9 ; Tension headache G44.209 ; Essential hypertension I10 ; Multinodular goiter E04.2 and BMI 40.0-44.9, adult Z68.41 [facility] [address] [address] Aug, Pelvic pain R10.2 ; Other sp ecified bacterial agents as the cause of diseases classified elsewhere B96.89 and Acute vaginitis N76.0 [place] [address] [address] [facility] [id number] [address] [place] [address] Apr, Bronchitis J40 [place] [address] [address] [facility] [id number] [address] [place] [address] Apr, Acute gastritis without hemo rrhage, unspecified gastritis type K29.00 [place] [address] [address] [facility] [id number] [address] [place] [address] Mar, [place] [address] [address] [facility] [id number] [place] [address] Feb, [place] [address] [address] [facility] [id number] [address] [place] [address] Feb, Mass of right side of neck R 22.1 and Multinodular goiter E04.2 [facility] [place] [address] [address] [facility] [id number] [address] [place] [address] Jan, Bronchitis J40 [place] [address] [address] [facility] [id number] [address] [place] [address] October, Acquired hypothyroidism E03. 9 [place] [address] [address] [facility] [id number] [address] [place] [address] October, Acute gastritis without hemo rrhage, unspecified gastritis type K29.00 ; Epigastric pain R10.13 ; Essential hypertension I10 ; Screening for colon cancer Z12.11 and BMI 40.0-44.9, adult Z68.41 [place] [address] [address] [facility] [id number] [address] [place] [address] October, [facility] [address] [facility] [id number] [address] [place] [address] October, Chest pain R07.9 and Morbid obesity E66.01 [facility] [place] [address] [place] [id number] [place] [address] Sep, Generalized abdominal pain R 10.84 ; Morbid obesity E66.01 ; Non-intractable vomiting with nausea, unspecified vomiting type R11.2 and Seasonal allergic rhinitis due to pollen J30.1 [facility] [address] [facility] [id number] [address] [place] [address] 28 Jul, 2018 COPD with exacerbation J44.1 ; Viral upper respiratory tract infection J06.9 and Morbid obesity E66.01 [facility] [address] [id number] [address] [place] [address] Jun, Viral upper respiratory trac t infection J06.9 [facility] [address] [place] [id number] [place] [address] Apr, Abnormal laboratory test R89 .9 [place] [address] [place] [id number] [place] [address] Apr, Abnormal laboratory test R89 .9 [place] [address] [place] [id number] [place] [address] Apr, Abnormal laboratory test R89 .9 [place] [address] [place] [id number] [place] [address] Apr, [facility] [address] [place] [id number] [address] [place] [address] Apr, [place] [address] [address] Apr, Nonintractable episodic head ache, unspecified headache type R51 ; Urge incontinence of urine N39.41 ; BMI 40.0-44.9, adult Z68.41 ; Myalgia M79.10 and Acute cystitis without hematuria N30.00 [facility] [address] [place] [address] [id number] [address] [place] [address] Mar, Nasal congestion R09.81 ; Lo w back pain M54.5 ; Reactive airway disease without complication, unspecified asthma severity, unspecified whether persistent J45.909 ; Other chronic pain G89.29 ; Acute cystitis with hematuria N30.01 and BMI 40.0-44.9, adult Z68.41 [facility] [address] [address] Mar, Acute cystitis with hematuri a N30.01 [facility] [address] [address] Mar, BMI 40.0-44.9, adult Z68.41 ; Acute cystitis with hematuria N30.01 ; Acute bilateral low back pain without sciatica M54.5 and Nausea R11.0 [place] [address] [address] Mar, Hypertension I10 ; Acquired hypothyroidism E03.9 ; Esophageal reflux K21.9 ; Chronic obstructive pulmonary disease, unspecified COPD type J44.9 and BMI 40.0-44.9, adult Z68.[address] [address] Mar, Hypertension I10 [place] [address] [address] Nov, Hyperlipidemia, unspecified E78.[address] [address] October, Chest pain, unspecified type R07.9 and Acquired hypothyroidism E03.[address] [address] October, Chest pain, unspecified type R07.9 ; Family history of coronary artery disease Z82.49 ; Carpal tunnel syndrome of left wrist G56.02 ; Hypertension I10 ; Esophageal reflux K21.9 ; Arthralgia M25.50 ; Acquired hypothyroidism E03.9 ; Cough R05 ; Nausea R11.0 ; Weight gain R63.5 and BMI 45.0-49.9, adult Z68.[address] [address] Jun, Acquired hypothyroidism E03. 9 and Cough R05 [place] [address] [address] May, [place] [address] [address] Feb, Tarsal tunnel syndrome of timi th lower extremities G57.53 and Neuropathy G62.9 [place] [address] [address] Dec, Pleuritis R09.1 [place] [address] [address] Nov, [place] [address] [address] October, Arthralgia, unspecified join t M25.50 and Allergy, initial encounter T78.40XA [place] [address] [address] October, [place] [address] [address] October, Acute recurrent maxillary si nusitis J01.01 and Arthralgia M25.50 [place] [address] [address] Sep, Pharyngitis due to other org anism J02.8 [place] [address] [place] [id number] [place] [address] Aug, Acute nasopharyngitis J00 [place] [address] [address] Aug, Multinodular goiter E04.2 [place] [address] [place] [id number] [place] [address] Aug, Thyroid nodule E04.1 [place] [address] [address] Jul, Tarsal tunnel syndrome of timi th lower extremities G57.53 [place] [address] [address] Jun, Pneumonia due to infectious organism, unspecified laterality, unspecified part of lung J18.9 [place] [address] [address] Jun, Bronchospasm with bronchitis , acute J20.9 [place] [address] [address] May, Acute non-recurrent frontal sinusitis J01.[address] [address] May, Flat foot [pes planus] (acqu ired), left foot M21.42 ; Flat foot [pes planus] (acquired), right foot M21.41 and Neuropathy G62.[address] [address] Apr, Chronic tension-type headach e, intractable G44.221 ; Right lower quadrant abdominal pain R10.31 ; Cervicalgia M54.2 ; Acute gastritis without hemorrhage, unspecified gastritis type K29.00 and Hypertension I10 [address] [address] Mar, Depression F32.9 and Anxiety disorder, unspecified F41.9 [place] [address] [address] Feb, Depressive disorder F32.9 an d Anxiety disorder, unspecified F41.[address] [address] Jan, Dysuria R30.0 ; Lower abdomi nal pain R10.30 ; Acute bilateral low back pain without sciatica M54.5 ; Nausea and vomiting, unspecified intactability, vomiting of unspecified type R11.2 ; Pain in right foot M79.671 and Pain of left foot M79.672 [facility] [address] [facility] [id number] [address] [place] [address] Dec, Urinary tract infection, sit e not specified N39.0 [facility] [address] [id number] [address] [place] [address] Dec, [facility] [address] [facility] [id number] [address] [place] [address] Nov, [facility] [address] [facility] [id number] [address] [place] [address] Nov, Dysuria R30.0 [facility] [address] [facility] [id number] [address] [place] [address] Nov, Dysuria R30.0 and Acute cyst itis with hematuria N30.01 [facility] [address] [facility] [id number] [address] [place] [address] October, Nausea R11.0 [facility] [address] [facility] [id number] [address] [place] [address] October, Thyroid nodule E04.1 ; Carpa l tunnel syndrome, left upper limb G56.02 ; Carpal tunnel syndrome, right upper limb G56.01 and Constipation, unspecified constipation type K59.00 [facility] [address] [facility] [id number] [address] [place] [address] October, [facility] [address] [facility] [id number] [address] [place] [address] October, Thyroid nodule E04.1 [facility] [address] [facility] [id number] [address] [place] [address] October, Cold thyroid nodule E04.1 [facility] [address] [facility] [id number] [address] [place] [address] October, [facility] [address] [facility] [id number] [address] [place] [address] Sep, Thyroid nodule E04.1 [facility] [address] [place] [id number] [address] [place] [address] Sep, Thyroid nodule E04.1 [place] [id number] [place] [id number] [place] [address] Sep, Thyroid nodule E04.1 ; Hyper tension I10 ; Esophageal reflux K21.9 and Hyperlipidemia, unspecified E78.5 [place] [address] [place] [id number] [place] [address] Aug, Other chronic pain G89.29 ; Sinusitis J32.9 and Hypertension I10 [place] [address] [place] [id number] [place] [address] Jul, [place] [address] [address] 15 Jul, 2015 [place] [address] [address] 10 Jul, 2015 Insomnia G47.00 and Arthralg ia M25.50 [place] [address] [address] 10 Jul, 2015 Depressive disorder F32.9 an d Anxiety disorder, unspecified F41.9 [place] [address] [place] [id number] [place] [address] May, Right-sided low back pain wi thout sciatica M54.5 and Depression F32.9 [place] [id number] [place] [address] Apr, Hematuria R31.9 [place] [address] [place] [id number] [place] [address] Mar, Other chronic pain G89.29 [place] [address] [place] [id number] [place] [address] Mar, Other chronic pain G89.29 [place] [address] [place] [id number] [place] [address] Feb, [place] [address] [id number] [address] [place] [address] Feb, Other chronic pain 338.29 ; Dysuria 788.1 ; UTI (urinary tract infection) 599.0 ; Insomnia 780.52 ; Hot flashes 627.[address] [facility] [address] [facility] [id number] [address] [place] [address] Feb, Dysuria 788.1 [facility] [address] [facility] [id number] [address] [place] [address] Feb, [facility] [address] [facility] [id number] [address] [place] [address] Jan, [facility] [address] [facility] [id number] [address] [place] [address] Jan, [facility] [address] [place] [id number] [address] [place] [address] Jan, Fibromyalgia 729.1 ; Hyperte nsion 401.9 ; Dysthymia 300.[address] [facility] [address] [facility] [id number] [address] [place] [address] Dec, [facility] [address] [facility] [id number] [address] [place] [address] Dec, [facility] [address] [facility] [id number] [address] [place] [address] Dec, [facility] [address] [facility] [id number] [address] [place] [address] Nov, Other chronic pain 338.29 [facility] [address] [facility] [id number] [address] [place] [address] October, [facility] [address] [facility] [id number] [address] [place] [address] October, [facility] [address] [facility] [id number] [address] [place] [address] Sep, [facility] [address] [id number] [address] [place] [address] 13 Sep, 2014 [facility] [address] [id number] [address] [place] [address], [place] [address] Aug, [facility] [address] [id number] [address] [place] [address], [place] [address] Aug, [facility] [address] [id number] [address] [place] [address], [place] [address] Aug, [facility] [address] [id number] [address] [place] [address], [place] [address] Aug, [facility] [address] [id number] [address] [place] [address], [place] [address] Aug, [facility] [address] [id number] [address] [place] [address], [place] [address] Aug, [facility] [address] [id number] [address] [place] [address], [place] [address] Aug, [facility] [address] [id number] [address] [place] [address], [place] [address] Aug, [facility] [address] [id number] [address] [place] [address], [place] [address] Aug, [facility] [address] [id number] [address] [place] [address], [place] [address] Aug, [facility] [address] [id number] [address] [place] [address], [place] [address] Aug, [facility] [address] [id number] [address] [place] [address], [place] [address] Aug, [facility] [address] [id number] [address] [place] [address], [place] [address] Aug, [facility] [address] [id number] [address] [place] [address], [place] [address] Aug, [facility] [address] [id number] [address] [place] [address], [place] [address] Jul, [facility] [address] [id number] [address] [place] [address], [place] [address] Jul, [facility] [address] [id number] [address] [place] [address], [place] [address] Jul, [facility] [address] [id number] [address] [place] [address], [place] [address] Jul, [facility] [address] [id number] [address] [place] [address], [place] [address] Jul, [facility] [address] [id number] [address] [place] [address], [place] [address] Jul, [facility] [address] [id number] [address] [place] [address], [place] [address] Jun, [facility] [address] [id number] [address] [place] [address], [place] [address] Jun, [facility] [address] [id number] [address] [place] [address], [place] [address] Jun, [facility] [address] [id number] [address] [place] [address], [place] [address] Jun, [facility] [address] [id number] [address] [place] [address], [place] [address] May, [facility] [address] [id number] [address] [place] [address], [place] [address] May, [facility] [address] [id number] [address] [place] [address], [place] [address] May, [facility] [address] [id number] [address] [place] [address], [place] [address] May, [facility] [address] [id number] [address] [place] [address], [place] [address] May, [facility] [address] [id number] [address] [place] [address], [place] [address] May, [facility] [address] [id number] [address] [place] [address], [place] [address] May, [facility] [address] [id number] [address] [place] [address], [place] [address] May, [facility] [address] [id number] [address] [place] [address], [place] [address] May, [facility] [address] [id number] [address] [place] [address], [place] [address] May, [facility] [address] [id number] [address] [place] [address], [place] [address] Apr, [facility] [address] [id number] [address] [place] [address], [place] [address] Apr, [facility] [address] [id number] [address] [place] [address], [place] [address] Apr, [facility] [address] [id number] [address] [place] [address], [place] [address] Apr, [facility] [address] [id number] [address] [place] [address], [place] [address] Apr, [facility] [address] [id number] [address] [place] [address], [place] [address] Apr, [facility] [address] [id number] [address] [place] [address], [place] [address] Apr, [facility] [address] [id number] [address] [place] [address], [place] [address] Apr, [facility] [address] [id number] [address] [place] [address], [place] [address] Apr, [facility] [address] [id number] [address] [place] [address], [place] [address] Mar, [facility] [address] [id number] [address] [place] [address], [place] [address] Mar, [facility] [address] [id number] [address] [place] [address], [place] [address] Mar, [facility] [address] [id number] [address] [place] [address], [place] [address] Mar, [facility] [address] [id number] [address] [place] [address], [place] [address] Mar, [facility] [address] [id number] [address] [place] [address], [place] [address] Mar, [facility] [address] [id number] [address] [place] [address], [place] [address] Mar, [facility] [address] [id number] [address] [place] [address], [place] [address] Mar, [facility] [address] [id number] [address] [place] [address], [place] [address] 30 Feb, 2014 [facility] [address] [id number] [address] [place] [address], [place] [address] 30 Feb, 2013 [facility] [address] [id number] [address] [place] [address], [place] [address] 24 Feb, 2013 [facility] [address] [id number] [address] [place] [address], [place] [address] 24 Feb, 2013 [facility] [address] [id number] [address] [place] [address], [place] [address] 22 Feb, 2013 [facility] [address] [address] [id number] [address] [place] [address], [place] [address] 22 Feb, 2013 [facility] [address] [id number] [address] [place] [address], [place] [address] 10 Feb, 2013 [facility] [address] [id number] [address] [place] [address], [place] [address] 10 Feb, 2013 [facility] [address] [id number] [address] [place] [address], [place] [address] 03 Feb, 2013 [facility] [address] [id number] [address] [place] [address], [place] [address] 03 Feb, 2013 [facility] [address] [id number] [address] [place] [address] [place] [address] Feb, 2013 [facility] [address] [id number] [address] [place] [address] Feb, 2013 [facility] [address] [id number] [address] [place] [address], [place] [address] Feb, [facility] [address] [id number] [address] [place] [address], [place] [address] Feb, [facility] [address] [id number] [address] [place] [address], [place] [address] Jan, [facility] [address] [id number] [address] [place] [address], [place] [address] Jan, [facility] [address] [id number] [address] [place] [address], [place] [address] Dec, [facility] [address] [id number] [address] [place] [address], [place] [address] Dec, [facility] [address] [id number] [address] [place] [address], [place] [address] Dec, [facility] [address] [id number] [address] [place] [address], [place] [address] Dec, [facility] [address] [id number] [address] [place] [address], [place] [id number] Dec, [facility] [address] [id number] [address] [place] [address], [place] [address] Dec, [facility] [address] [id number] [address] [place] [address], [place] [address] Dec, [facility] [address] [id number] [address] [place] [address], [place] [address] Dec, [facility] [address] [id number] [address] [place] [address], [place] [address] Dec, [facility] [address] [id number] [address] [place] [address], [place] [address] Dec, [facility] [address] [id number] [address] [place] [address] 14 Dec, 2013 [facility] [address] [id number] [address] [place] [address] Dec, 2013 [facility] [address] [id number] [address] [place] [address], [place] [address] Dec, 2013 [facility] [address] [id number] [address] [place] [address], [place] [address] Dec, 2013 [facility] [address] [id number] [address] [place] [address], [place] [address] Dec, 2013 [facility] [address] [id number] [address] [place] [address], [place] [address] Dec, 2013 [facility] [address] [id number] [address] [place] [address], [place] [address] Dec, 2013 [facility] [address] [id number] [address] [place] [address], [place] [address] Dec, [facility] [address] [id number] [address] [place] [address], [place] [address] Dec, [facility] [address] [id number] [address] [place] [address], [place] [address] Nov, [facility] [address] [id number] [address] [place] [address], [place] [address] Nov, [facility] [address] [id number] [address] [place] [address], [place] [address] Nov, [facility] [address] [id number] [address] [place] [address], [place] [address] Nov, [facility] [address] [id number] [address] [place] [address], [place] [address] Nov, [facility] [address] [id number] [address] [place] [address], [place] [address] Nov, [facility] [address] [id number] [address] [place] [address], [place] [address] Nov, [facility] [address] [id number] [address] [place] [address] Nov, [facility] [address] [id number] [address] [place] [address] Nov, [facility] [address] [id number] [address] [place] [address], [place] [address] October, [facility] [address] [id number] [address] [place] [address], [place] [address] October, [facility] [address] [id number] [address] [place] [address], [place] [address] October, [facility] [address] [id number] [address] [place] [address], [place] [address] October, [facility] [address] [id number] [address] [place] [address], [place] [address] October, [facility] [address] [id number] [address] [place] [address], [place] [address] October, [facility] [address] [id number] [address] [place] [address], [place] [address] October, [facility] [address] [id number] [address] [place] [address], [place] [address] October, [facility] [address] [id number] [address] [place] [address], [place] [address] Sep, [facility] [address] [id number] [address] [place] [address], [place] [address] Sep, [facility] [address] [id number] [address] [place] [address], [place] [address] Sep, [facility] [address] [id number] [address] [place] [address], [place] [address] Sep, [facility] [address] [id number] [address] [place] [address], [place] [address] Sep, [facility] [address] [id number] [address] [place] [address], [place] [address] Sep, [facility] [address] [id number] [address] [place] [address], [place] [address] Sep, [facility] [address] [id number] [address] [place] [address], [place] [address] Aug, [facility] [address] [id number] [address] [place] [address], [place] [address] Aug, [facility] [address] [id number] [address] [place] [address], [place] [address] Aug, [facility] [address] [id number] [address] [place] [address], [place] [address] Aug, [facility] [address] [id number] [address] [place] [address], [place] [address] Aug, [facility] [address] [id number] [address] [place] [address], [place] [address] Aug, [facility] [address] [id number] [address] [place] [address], [place] [address] Jul, [facility] [address] [id number] [address] [place] [address], [place] [address] Jul, [facility] [address] [id number] [address] [place] [address], [place] [address] Jul, [facility] [address] [id number] [address] [place] [address], [place] [address] Jul, [facility] [address] [id number] [address] [place] [address], [place] [address] Jul, [facility] [address] [id number] [address] [place] [address], [place] [address] Jul, [facility] [address] [id number] [address] [place] [address], [place] [address] Jun, [facility] [address] [id number] [address] [place] [address], [place] [address] Jun, [facility] [address] [id number] [address] [place] [address], [place] [address] Jun, [facility] [address] [id number] [address] [place] [address], [place] [address] Jun, [facility] [address] [id number] [address] [place] [address], [place] [address] Jun, [facility] [address] [id number] [address] [place] [address], [place] [address] Jun, [facility] [address] [id number] [address] [place] [address], [place] [address] Jun, [facility] [address] [id number] [address] [place] [address], [place] [address] Jun, [facility] [address] [id number] [address] [place] [address], [place] [address] Jun, [facility] [address] [id number] [address] [place] [address], [place] [address] Jun, [facility] [address] [id number] [address] [place] [address], [place] [address] Jun, [facility] [address] [id number] [address] [place] [address], [place] [address] Jun, [facility] [address] [id number] [address] [place] [address], [place] [address] Jun, [facility] [address] [id number] [address] [place] [address], [place] [address] May, [facility] [address] [id number] [address] [place] [address], [place] [address] May, [facility] [address] [id number] [address] [place] [address], [place] [address] May, [facility] [address] [id number] [address] [place] [address], [place] [address] May, [facility] [address] [id number] [address] [place] [address], [place] [address] 26 May, 2013 [facility] [address] [id number] [address] [place] [address], [place] [address] 14 May, 2013 [facility] [address] [id number] [address] [place] [address], [place] [address] 14 May, 2013 [facility] [address] [id number] [address] [place] [address], [place] [address] 12 May, 2013 [facility] [address] [id number] [address] [place] [address], [place] [address] 12 May, 2013 [facility] [address] [id number] [address] [place] [address], [place] [address] May, [facility] [address] [id number] [address] [place] [address], [place] [address] May, [facility] [address] [id number] [address] [place] [address], [place] [address] 10 May, 2013 [facility] [address] [id number] [address] [place] [address], [place] [address] 10 May, 2013 [facility] [address] [id number] [address] [place] [address], [place] [address] 09 May, 2013 [facility] [address] [id number] [address] [place] [address], [place] [address] 09 May, 2013 [facility] [address] [id number] [address] [place] [address], [place] [address] 08 May, 2013 [facility] [address] [id number] [address] [place] [address], [place] [address] 07 May, 2013 [facility] [address] [id number] [address] [place] [address], [place] [address] 06 May, 2013 [facility] [address] [id number] [address] [place] [address], [place] [address] 06 May, 2013 [facility] [address] [id number] [address] [place] [address], [place] [address] 06 May, 2013 [facility] [address] [id number] [address] [place] [address], [place] [address] May, [facility] [address] [id number] [address] [place] [address], [place] [address] Apr, [facility] [address] [id number] [address] [place] [address], [place] [address] Apr, [facility] [address] [id number] [address] [place] [address], [place] [address] Apr, [facility] [address] [id number] [address] [place] [address], [place] [address] Apr, [facility] [address] [id number] [address] [place] [address], [place] [address] Mar, [facility] [address] [id number] [address] [place] [address], [place] [address] 23 Feb, 2013 [facility] [address] [id number] [address] [place] [address], [place] [address] 16 Feb, 2013 [facility] [address] [id number] [address] [place] [address], [place] [address] 13 Feb, 2013 [facility] [address] [id number] [address] [place] [address], [place] [address] 10 Feb, 2013 [facility] [address] [id number] [address] [place] [address], [place] [address] Feb, [facility] [address] [id number] [address] [place] [address], [place] [address] Feb, [facility] [address] [id number] [address] [place] [address], [place] [address] Jan, [facility] [address] [id number] [address] [place] [address], [place] [address] Jan, [facility] [address] [id number] [address] [place] [address], [place] [address] Jan, [facility] [address] [id number] [address] [place] [address], [place] [address] 17 Dec, 2012 [facility] [address] [id number] [address] [place] [address] 17 Dec, 2012 [facility] [address] [id number] [address] [place] [address], [place] [address] 17 Dec, 2012 [facility] [address] [id number] [address] [place] [address], [place] [address] 15 Dec, 2012 [facility] [address] [id number] [address] [place] [address], [place] [address] Dec, [facility] [address] [id number] [address] [place] [address], [place] [address] Nov, [facility] [address] [id number] [address] [place] [address], [place] [address] Nov, [facility] [address] [id number] [address] [place] [address], [place] [address] Nov, [facility] [address] [id number] [address] [place] [address], [place] [address] Nov, [facility] [address] [id number] [address] [place] [address], [place] [address] Nov, [facility] [address] [id number] [address] [place] [address], [place] [address] 08 Nov, 2012 [facility] [address] [id number] [address] [place] [address], [place] [address] 07 Nov, 2012 [facility] [address] [id number] [address] [place] [address], [place] [address] 06 Nov, 2012 [facility] [address] [id number] [address] [place] [address], [place] [address] 05 Nov, 2012 [facility] [address] [id number] [address] [place] [address], [place] [address] 04 Nov, 2012 [facility] [address] [id number] [address] [place] [address], [place] [address] October, [facility] [address] [id number] [address] [place] [address], [place] [address] October, [facility] [address] [id number] [address] [place] [address], [place] [address] Sep, [facility] [address] [id number] [address] [place] [address], [place] [address] Sep, [facility] [address] [id number] [address] [place] [address], [place] [address] Sep, [facility] [address] [id number] [address] [place] [address], [place] [address] Sep, [facility] [address] [id number] [address] [place] [address], [place] [address] Sep, [facility] [address] [id number] [address] [place] [address], [place] [address] Aug, [facility] [address] [id number] [address] [place] [address], [place] [address] Aug, [facility] [address] [id number] [address] [place] [address], [place] [address] Jul, [facility] [address] [id number] [address] [place] [address], [place] [address] Jul, [facility] [address] [id number] [address] [place] [address], [place] [address] Jun, [facility] [address] [id number] [address] [place] [address], [place] [address] Jun, [facility] [address] [id number] [address] [place] [address], [place] [address] May, [facility] [address] [id number] [address] [place] [address], [place] [address] May, [facility] [address] [id number] [address] [place] [address], [place] [address] May, [facility] [address] [id number] [address] [place] [address], [place] [address] May, [facility] [address] [id number] [address] [place] [address], [place] [address] Apr, [facility] [address] [id number] [address] [place] [address], [place] [address] Apr, [facility] [address] [id number] [address] [place] [address], [place] [address] Apr, [facility] [address] [id number] [address] [place] [address], [place] [address] Apr, [facility] [address] [id number] [address] [place] [address], [place] [address] Apr, [facility] [address] [id number] [address] [place] [address], [place] [address] Apr, [facility] [address] [id number] [address] [place] [address], [place] [address] Apr, [facility] [address] [id number] [address] [place] [address] Apr, [facility] [address] [id number] [address] [place] [address], [place] [address] Apr, [facility] [address] [id number] [address] [place] [address] Mar, [facility] [address] [id number] [address] [place] [address] Mar, [facility] [address] [id number] [address] [place] [address] Feb, [facility] [address] [id number] [address] [place] [address], [place] [address] Jan, [facility] [address] [id number] [address] [place] [address] Jan, [facility] [address] [id number] [address] [place] [address] Dec, [facility] [address] [id number] [address] [place] [address] Nov, [facility] [address] [id number] [address] [place] [address], [place] [address] Nov, [facility] [address] [id number] [address] [place] [address], [place] [address] October, [facility] [address] [id number] [address] [place] [address], [place] [address] October, [facility] [address] [id number] [address] [place] [address], [place] [address] Sep, [facility] [address] [id number] [address] [place] [address], [place] [address] Sep, [facility] [address] [id number] [address] [place] [address], [place] [address] May, [facility] [address] [id number] [address] [place] [address] Apr, [facility] [address] [id number] [address] [place] [address], [place] [address] Apr, [facility] [address] [id number] [address] [place] [address], [place] [address] Apr, [facility] [address] [id number] [address] [place] [address] Apr, [facility] [address] [id number] [address] [place] [address], [place] [address] Apr, [facility] [address] [id number] [address] [place] [id number] Apr, [facility] [address] [id number] [address] [place] [address], [place] [address] Apr, [facility] [address] [id number] [address] [place] [address], [place] [address] Apr, [facility] [address] [id number] [address] [place] [address], [place] [address] Mar, [facility] [address] [facility] [id number] [address] [place] [address] Mar, [facility] [address] [facility] [id number] [address] [place] [address] Mar, [facility] [address] [facility] [id number] [address] [place] [address] Mar, [facility] [address] [facility] [id number] [address] [place] [address] Mar, [facility] [address] [facility] [id number] [address] [place] [address] Mar, IMMUNIZATIONS No Known Immunizations SOCIAL HISTORY Never Assessed REASON FOR VISIT PLAN OF CARE VITAL SIGNS Height 62 in 2013-01-30 Weight 225.8 lbs 2013-01-30 Temperature 99.1 degrees Fahrenheit 2013-01-30 Heart Rate 86 bpm 2013-01-30 Respiratory Rate 18 2013-01-30 Blood pressure systolic 136 mmHg 2013-01-30 Blood pressure diastolic 80 mmHg 2013-01-30 MEDICATIONS Unknown Medications RESULTS No Results PROCEDURES Procedure Date Ordered Result Body Site PSYTX PT&/FAMILY 45 MINUTES Jan 30, 2013 DRUG SCREEN, QUALITATE/MULTI Jan 30, 2013 INSTRUCTIONS MEDICATIONS ADMINISTERED No Known Medications MEDICAL (GENERAL) HISTORY Type Description Date Medical History HTN Medical History Depression Medical History Arthritis Medical History COPD Surgical History Breast lump removed Surgical History Removal of cyst from ovary Surgical History cholecystectomy Surgical History Stomach surgeryx3 Surgical History tubal ligation Hospitalization History Mental floor at [facility]
--- OUTSIDE RECORDS SUMMARY | 2019-12-24 19:36 | XMS REPORT ---
Author Author Deann Trey Doctor Organization [facility] Address Unknown Phone Unavailable Care Team Providers Care Party Host/Hostess Name Role Phone Migration, Doctor Unavailable Unavailable PROBLEMS Type Condition ICD9-CM Code GEA69-LV Code Onset Dates Condition S tatus SNOMED Code Problem Unspecified epilepsy without mention of intractable ep ilepsy G40.909 Active 04977824 Problem Hypertension I10 Active 2235520 3 Problem Other chronic pain G89.29 Active 1 05016227 Problem Rheumatoid arthritis M06.9 Active 02849665 Problem Hyperlipidemia, unspecified E78.5 Ac tive 34718313 Problem Depressive disorder F32.9 Active 32589730 Problem Esophageal reflux K21.9 Active 23 2789101 Problem Carpal tunnel syndrome of left wrist G56.02 Active 428166681342913 Problem Presbyopia H52.4 Active 71144153 Problem Cough R05 Active 40579545 Problem Nondependent 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 Ac tive 642070409 Problem Unspecified open-angle glaucoma, stage unspecified H40.10X0 Feb, Active 22803569 Problem Anxiety disorder, unspecified F41.9 Active 789402357 Problem Insomnia G47.00 Active 402375816 Problem Neuropathy G62.9 Active 339538041 Problem Thyroid nodule E04.1 Active 32575 5005 Problem Multinodular goiter E04.2 Active 699651337 Problem Chronic tension-type headache, intractable G44.221 Active 915869376 Problem Acquired hypothyroidism E03.9 Active 322216455 Problem Goiter E04.9 Active 9188481 Problem Chronic obstructive pulmonary disease, unspecified COPD ty pe J44.9 Active 89212130 Problem Reactive airway disease with out complication, unspecified asthma severity, unspecified whether persistent J45.909 Active 595879169079 Problem BMI 40.0-44.9, adult Z68.41 Active 812366990 Problem Essential hypertension I10 Active 08374412 Problem Right-sided low back pain without sciatica M54.5 Active 533460513 Problem Tension headache G44.209 Active 398 153683 Problem Depression F32.9 Active 42424504 Problem Arthralgia M25.50 Active 76866461 Problem Urge incontinence of urine N39.41 Act chen 76604647 Problem Abnormal laboratory test R89.9 Activ e 885807386 Problem COPD with exacerbation J44.1 Active 070178861 Problem Seasonal allergic rhinitis due to pollen J30.1 Active 57135992 ALLERGIES No Information ENCOUNTERS Encounter Location Date Diagnosis [facility] [address] [place] [id number] [place] [address] [id number] October, [place] [address] [address] October, Thyroid nodule E04.1 and Mul tinodular goiter E04.2 [place] [address] [address] Sep, Thyroid nodule E04.1 [place] [address] [address] Sep, [place] [address] [address] Sep, Counseled by nurse Z71.9 and Thyroid nodule E04.1 [place] [address] [address] Sep, Acquired hypothyroidism E03. 9 ; Tension headache G44.209 ; Essential hypertension I10 ; Multinodular goiter E04.2 and BMI 40.0-44.9, adult Z68.41 [place] [address] [address] Aug, Pelvic pain R10.2 ; Other sp ecified bacterial agents as the cause of diseases classified elsewhere B96.89 and Acute vaginitis N76.0 [place] [address] [address] Apr, Bronchitis J40 [place] [address] [address] Apr, Acute gastritis without hemo rrhage, unspecified gastritis type K29.00 [place] [address] [place] [id number] [place] [address] Mar, [place] [address] [place] [id number] [address] [place] [address] Feb, [place] [address] [place] [id number] [place] [address] Feb, Mass of right side of neck R 22.1 and Multinodular goiter E04.2 [facility] [place] [address] [address] Jan, Bronchitis J40 [place] [address] [address] October, Acquired hypothyroidism E03. 9 [place] [address] [address] October, Acute gastritis without hemo rrhage, unspecified gastritis type K29.00 ; Epigastric pain R10.13 ; Essential hypertension I10 ; Screening for colon cancer Z12.11 and BMI 40.0-44.9, adult Z68.41 [place] [address] [address] October, [facility] [place] [address] [address] October, Chest pain R07.9 and Morbid obesity E66.01 [facility] [place] [address] [address] Sep, Generalized abdominal pain R 10.84 ; Morbid obesity E66.01 ; Non-intractable vomiting with nausea, unspecified vomiting type R11.2 and Seasonal allergic rhinitis due to pollen J30.1 [facility] [place] [address] [facility] [id number] [address] [place] [address] Jul, COPD with exacerbation J44.1 ; Viral upper respiratory tract infection J06.9 and Morbid obesity E66.01 [facility] [address] [facility] [id number] [address] [place] [address] Jun, Viral upper respiratory trac t infection J06.9 [place] [address] [facility] [id number] [address] [place] [address] Apr, Abnormal laboratory test R89 .9 [place] [address] [address] [facility] [id number] [address] [place] [address] Apr, Abnormal laboratory test R89 .9 [place] [address] [address] [facility] [id number] [address] [place] [address] Apr, Abnormal laboratory test R89 .9 [place] [address] [place] [id number] [address] [place] [address] Apr, [place] [address] [place] [id number] [place] [address] Apr, [place] [address] [address] Apr, Nonintractable episodic head ache, unspecified headache type R51 ; Urge incontinence of urine N39.41 ; BMI 40.0-44.9, adult Z68.41 ; Myalgia M79.10 and Acute cystitis without hematuria N30.00 [place] [address] [address] [place] [id number] [address] [place] [address] Mar, Nasal congestion R09.81 ; Lo w back pain M54.5 ; Reactive airway disease without complication, unspecified asthma severity, unspecified whether persistent J45.909 ; Other chronic pain G89.29 ; Acute cystitis with hematuria N30.01 and BMI 40.0-44.9, adult Z68.41 [place] [address] [address] Mar, Acute cystitis with hematuri a N30.01 [facility] [address] [place] [id number] [address] [place] [address] Mar, BMI 40.0-44.9, adult Z68.41 ; Acute cystitis with hematuria N30.01 ; Acute bilateral low back pain without sciatica M54.5 and Nausea R11.0 [place] [address] [address] 17 Mar, 2018 Hypertension I10 ; Acquired hypothyroidism E03.9 ; Esophageal reflux K21.9 ; Chronic obstructive pulmonary disease, unspecified COPD type J44.9 and BMI 40.0-44.9, adult Z68.41 [place] [address] [address] 15 Mar, 2018 Hypertension I10 [address] [address] Nov, Hyperlipidemia, unspecified E78.[address] [address] October, Chest pain, unspecified type R07.9 and Acquired hypothyroidism E03.9 [place] [address] [address] October, Chest pain, unspecified type R07.9 ; Family history of coronary artery disease Z82.49 ; Carpal tunnel syndrome of left wrist G56.02 ; Hypertension I10 ; Esophageal reflux K21.9 ; Arthralgia M25.50 ; Acquired hypothyroidism E03.9 ; Cough R05 ; Nausea R11.0 ; Weight gain R63.5 and BMI 45.0-49.9, adult Z68.42 [place] [address] [address] Jun, Acquired hypothyroidism E03. 9 and Cough R05 [place] [address] [address] May, [address] [address] Feb, Tarsal tunnel syndrome of timi th lower extremities G57.53 and Neuropathy G62.[address] [address] Dec, Pleuritis R09.1 [place] [address] [place] [id number] [address] [place] [address] Nov, [place] [address] [address] October, Arthralgia, unspecified join t M25.50 and Allergy, initial encounter T78.40XA [place] [address] [address] October, [place] [address] [address] October, Acute recurrent maxillary si nusitis J01.01 and Arthralgia M25.50 [place] [address] [address] Sep, Pharyngitis due to other org anism J02.8 [place] [address] [address] Aug, Acute nasopharyngitis J00 [place] [address] [address] Aug, Multinodular goiter E04.2 [place] [address] [address] Aug, Thyroid nodule E04.1 [place] [address] [place] [id number] [address] [place] [address] Jul, Tarsal tunnel syndrome of timi th lower extremities G57.53 [place] [address] [address] Jun, Pneumonia due to infectious organism, unspecified laterality, unspecified part of lung J18.9 [place] [address] [place] [id number] [address] [place] [address] Jun, Bronchospasm with bronchitis , acute J20.9 [place] [address] [address] May, Acute non-recurrent frontal sinusitis J01.10 [place] [address] [address] May, Flat foot [pes planus] (acqu ired), left foot M21.42 ; Flat foot [pes planus] (acquired), right foot M21.41 and Neuropathy G62.9 [place] [address] [address] Apr, Chronic tension-type headach e, intractable G44.221 ; Right lower quadrant abdominal pain R10.31 ; Cervicalgia M54.2 ; Acute gastritis without hemorrhage, unspecified gastritis type K29.00 and Hypertension I10 [place] [address] [address] Mar, Depression F32.9 and Anxiety disorder, unspecified F41.9 [place] [address] [address] Feb, Depressive disorder F32.9 an d Anxiety disorder, unspecified F41.9 [place] [address] [address] Jan, Dysuria R30.0 ; Lower abdomi nal pain R10.30 ; Acute bilateral low back pain without sciatica M54.5 ; Nausea and vomiting, unspecified intactability, vomiting of unspecified type R11.2 ; Pain in right foot M79.671 and Pain of left foot M79.672 [place] [address] [address] Dec, Urinary tract infection, sit e not specified N39.0 [place] [address] [address] Dec, [place] [address] [address] Nov, [place] [address] [facility] [id number] [address] [place] [address] Nov, Dysuria R30.0 [facility] [address] [place] [id number] [place] [address] Nov, Dysuria R30.0 and Acute cyst itis with hematuria N30.01 [facility] [address] [place] [id number] [place] [address] October, Nausea R11.0 [facility] [address] [place] [id number] [place] [address] October, Thyroid nodule E04.1 ; Carpa l tunnel syndrome, left upper limb G56.02 ; Carpal tunnel syndrome, right upper limb G56.01 and Constipation, unspecified constipation type K59.00 [place] [address] [place] [id number] [place] [address] October, [place] [address] [place] [id number] [place] [address] October, Thyroid nodule E04.1 [place] [address] [place] [id number] [place] [address] October, Cold thyroid nodule E04.1 [facility] [address] [place] [id number] [place] [address] October, [place] [address] [place] [id number] [place] [address] Sep, Thyroid nodule E04.1 [facility] [address] [place] [id number] [place] [address] Sep, Thyroid nodule E04.1 [facility] [address] [place] [id number] [place] [address] Sep, Thyroid nodule E04.1 ; Hyper tension I10 ; Esophageal reflux K21.9 and Hyperlipidemia, unspecified E78.5 [place] [address] [place] [id number] [place] [address] Aug, Other chronic pain G89.29 ; Sinusitis J32.9 and Hypertension I10 [facility] [address] [facility] [id number] [address] [place] [address] 29 Jul, 2015 [facility] [address] [facility] [id number] [address] [place] [address] 15 Jul, 2015 [facility] [address] [address] 10 Jul, 2015 Insomnia G47.00 and Arthralg ia M25.50 [facility] [address] [place] [id number] [place] [address] 10 Jul, 2015 Depressive disorder F32.9 an d Anxiety disorder, unspecified F41.9 [place] [address] [place] [id number] [place] [address] May, Right-sided low back pain wi thout sciatica M54.5 and Depression F32.9 [facility] [address] [place] [id number] [place] [address] Apr, Hematuria R31.9 [place] [address] [place] [id number] [place] [address] Mar, Other chronic pain G89.29 [facility] [address] [place] [id number] [address] [place] [address] Mar, Other chronic pain G89.29 [facility] [address] [place] [id number] [place] [address] 28 Feb, 2015 [facility] [address] [place] [id number] [place] [address] 22 Feb, 2015 Other chronic pain 338.29 ; Dysuria 788.1 ; UTI (urinary tract infection) 599.0 ; Insomnia 780.52 ; Hot flashes 627.2 and Hypertension 401.9 [facility] [address] [place] [id number] [place] [address] 14 Feb, 2015 Dysuria 788.1 [place] [address] [id number] [address] [place] [address] Feb, [facility] [address] [id number] [address] [place] [address] Jan, [facility] [address] [id number] [address] [place] [address] Jan, [facility] [address] [id number] [address] [place] [address] Jan, Fibromyalgia 729.1 ; Hyperte nsion 401.9 ; Dysthymia 300.4 and Hot flashes 627.2 [facility] [address] [id number] [address] [place] [address] Dec, [facility] [address] [id number] [address] [place] [address] Dec, [facility] [address] [id number] [address] [place] [address] Dec, [facility] [address] [id number] [address] [place] [address] Nov, Other chronic pain 338.29 [facility] [address] [id number] [address] [place] [address] October, [facility] [address] [id number] [address] [place] [address] October, [facility] [address] [id number] [address] [place] [address] Sep, [facility] [address] [id number] [address] [place] [address] Sep, [facility] [address] [id number] [address] [place] [address] Aug, [facility] [address] [id number] [address] [place] [address] Aug, [facility] [address] [id number] [address] [place] [address] Aug, [facility] [address] [id number] [address] [place] [address], [place] [address] Aug, [facility] [address] [id number] [address] [place] [address], [place] [address] Aug, [facility] [address] [id number] [address] [place] [address], [place] [address] Aug, [facility] [address] [id number] [address] [place] [address], [place] [address] Aug, [facility] [address] [id number] [address] [place] [address], [place] [address] Aug, [facility] [address] [id number] [address] [place] [address], [place] [address] Aug, [facility] [address] [id number] [address] [place] [address], [place] [address] Aug, [facility] [address] [id number] [address] [place] [address], [place] [address] Aug, [facility] [address] [id number] [address] [place] [address], [place] [address] Aug, [facility] [address] [id number] [address] [place] [address], [place] [address] Aug, [facility] [address] [id number] [address] [place] [address], [place] [address] Aug, [facility] [address] [id number] [address] [place] [address], [place] [address] Jul, [facility] [address] [id number] [address] [place] [address], [place] [address] Jul, [facility] [address] [id number] [address] [place] [address], [place] [address] Jul, [facility] [address] [id number] [address] [place] [address], [place] [address] Jul, [facility] [address] [id number] [address] [place] [address], [place] [address] Jul, [facility] [address] [id number] [address] [place] [address], [place] [address] Jul, [facility] [address] [id number] [address] [place] [address], [place] [address] Jun, [facility] [address] [id number] [address] [place] [address], [place] [address] Jun, [facility] [address] [id number] [address] [place] [address], [place] [address] Jun, [facility] [address] [id number] [address] [place] [address], [place] [address] Jun, [facility] [address] [id number] [address] [place] [address], [place] [address] May, [facility] [address] [id number] [address] [place] [address], [place] [address] May, [facility] [address] [id number] [address] [place] [address], [place] [address] May, [facility] [address] [id number] [address] [place] [address], [place] [address] May, [facility] [address] [id number] [address] [place] [address], [place] [address] May, [facility] [address] [id number] [address] [place] [address], [place] [address] May, [facility] [address] [id number] [address] [place] [address], [place] [address] May, [facility] [address] [id number] [address] [place] [address], [place] [address] May, [facility] [address] [id number] [address] [place] [address], [place] [address] May, [facility] [address] [id number] [address] [place] [address], [place] [address] May, [facility] [address] [id number] [address] [place] [address], [place] [address] Apr, [facility] [address] [id number] [address] [place] [address], [place] [address] Apr, [facility] [address] [id number] [address] [place] [address], [place] [address] Apr, [facility] [address] [id number] [address] [place] [address], [place] [address] Apr, [facility] [address] [id number] [address] [place] [address], [place] [address] Apr, [facility] [address] [id number] [address] [place] [address] Apr, [facility] [address] [id number] [address] [place] [address], [place] [address] Apr, [facility] [address] [id number] [address] [place] [address], [place] [address] Apr, [facility] [address] [id number] [address] [place] [address], [place] [address] Apr, [facility] [address] [id number] [address] [place] [address], [place] [address] Mar, [facility] [address] [id number] [address] [place] [address] Mar, [facility] [address] [id number] [address] [place] [address] Mar, [facility] [address] [id number] [address] [place] [address], [place] [address] Mar, [facility] [address] [id number] [address] [place] [address] Mar, [facility] [address] [id number] [address] [place] [address] Mar, [facility] [address] [id number] [address] [place] [address], [place] [address] 08 Mar, 2013 [facility] [address] [id number] [address] [place] [address], [place] [address] 08 Mar, 2013 [facility] [address] [id number] [address] [place] [address], [place] [address] 30 Feb, 2013 [facility] [address] [id number] [address] [place] [address], [place] [address] 30 Sep, 2013 [facility] [address] [id number] [address] [place] [address], [place] [address] 24 Sep, 2013 [facility] [address] [id number] [address] [place] [address], [place] [address] 24 Feb, 2013 [facility] [address] [id number] [address] [place] [address], [place] [address] 22 Feb, 2013 [facility] [address] [id number] [address] [place] [address], [place] [address] 22 Feb, 2013 [facility] [address] [id number] [address] [place] [address], [place] [address] 10 Feb, 2013 [facility] [address] [id number] [address] [place] [address], [place] [address] 10 Feb, 2013 [facility] [address] [id number] [address] [place] [address], [place] [address] 03 Sep, 2013 [facility] [address] [id number] [address] [place] [address], [place] [address] 03 Sep, 2013 [facility] [address] [id number] [address] [place] [address], [place] [address] 03 Sep, 2013 [facility] [address] [id number] [address] [place] [address], [place] [address] 03 Sep, 2013 [facility] [address] [id number] [address] [place] [address], [place] [address] 03 Sep, 2013 [facility] [address] [id number] [address] [place] [address], [place] [address] Feb, [facility] [address] [id number] [address] [place] [address], [place] [address] Jan, [facility] [address] [id number] [address] [place] [address], [place] [address] Jan, [facility] [address] [id number] [address] [place] [address], [place] [address] Dec, [facility] [address] [id number] [address] [place] [address], [place] [address] Dec, [facility] [address] [id number] [address] [place] [address], [place] [address] Dec, [facility] [address] [id number] [address] [place] [address], [place] [address] Dec, [facility] [address] [id number] [address] [place] [address], [place] [id number] Dec, [facility] [address] [id number] [address] [place] [address], [place] [address] Dec, [facility] [address] [id number] [address] [place] [address], [place] [address] Dec, [facility] [address] [id number] [address] [place] [address], [place] [address] Dec, [facility] [address] [id number] [address] [place] [address], [place] [address] Dec, [facility] [address] [id number] [address] [place] [address], [place] [address] Dec, [facility] [address] [id number] [address] [place] [address], [place] [address] Dec, [facility] [address] [id number] [address] [place] [address], [place] [address] Dec, [facility] [address] [id number] [address] [place] [address], [place] [address] Dec, [facility] [address] [id number] [address] [place] [address], [place] [address] Dec, [facility] [address] [id number] [facility] [place] [address] Dec, [facility] [address] [id number] [address] [place] [address], [place] [address] Dec, [facility] [address] [id number] [address] [place] [address], [place] [address] Dec, [facility] [address] [id number] [address] [place] [address], [place] [address] Dec, [facility] [address] [id number] [address] [place] [address], [place] [address] Dec, [facility] [address] [id number] [address] [place] [address], [place] [address] Nov, [facility] [address] [id number] [address] [place] [address], [place] [address] Nov, [facility] [address] [id number] [address] [place] [address], [place] [address] Nov, [facility] [address] [id number] [address] [place] [address], [place] [address] Nov, [facility] [address] [id number] [address] [place] [address], [place] [address] Nov, [facility] [address] [id number] [address] [place] [address], [place] [address] Nov, [facility] [address] [id number] [address] [place] [address], [place] [address] Nov, [facility] [address] [id number] [address] [place] [address], [place] [address] Nov, [facility] [address] [id number] [address] [place] [address], [place] [address] Nov, [facility] [address] [id number] [address] [place] [address], [place] [address] October, [facility] [address] [id number] [facility] [place] [address] October, [facility] [address] [id number] [address] [place] [address], [place] [address] October, [facility] [address] [id number] [address] [place] [address], [place] [address] October, [facility] [address] [id number] [address] [place] [address], [place] [address] October, [facility] [address] [id number] [address] [place] [address], [place] [address] October, [facility] [address] [id number] [address] [place] [address], [place] [address] October, [facility] [address] [id number] [address] [place] [address], [place] [address] October, [facility] [address] [id number] [address] [place] [address], [place] [address] Sep, [facility] [address] [id number] [address] [place] [address], [place] [address] Sep, [facility] [address] [id number] [address] [place] [address], [place] [address] Sep, [facility] [address] [id number] [address] [place] [address], [place] [address] Sep, [facility] [address] [id number] [address] [place] [address], [place] [address] Sep, [facility] [address] [id number] [address] [place] [address], [place] [address] Sep, [facility] [address] [id number] [address] [place] [address], [place] [address] Sep, [facility] [address] [id number] [address] [place] [address], [place] [address] Aug, [facility] [address] [id number] [address] [place] [address], [place] [address] Aug, [facility] [address] [id number] [facility] [place] [address] Aug, [facility] [address] [id number] [address] [place] [address], [place] [address] Aug, [facility] [address] [id number] [address] [place] [address], [place] [address] Aug, [facility] [address] [id number] [address] [place] [address], [place] [address] Aug, [facility] [address] [id number] [address] [place] [address], [place] [address] Jul, [facility] [address] [id number] [address] [place] [address], [place] [address] Jul, [facility] [address] [id number] [address] [place] [address], [place] [address] Jul, [facility] [address] [id number] [address] [place] [address], [place] [address] Jul, [facility] [address] [id number] [address] [place] [address], [place] [address] Jul, [facility] [address] [id number] [address] [place] [address], [place] [address] Jul, [facility] [address] [id number] [address] [place] [address], [place] [address] Jun, [facility] [address] [id number] [address] [place] [address], [place] [address] Jun, [facility] [address] [id number] [address] [place] [address], [place] [address] Jun, [facility] [address] [id number] [address] [place] [address], [place] [address] Jun, [facility] [address] [id number] [address] [place] [address], [place] [address] Jun, [facility] [address] [id number] [address] [place] [address], [place] [address] Jun, [facility] [address] [id number] [address] [place] [address], [place] [address] Jun, [facility] [address] [id number] [address] [place] [address], [place] [address] Jun, [facility] [address] [id number] [address] [place] [address], [place] [address] 16 Jun, 2013 [facility] [address] [id number] [address] [place] [address], [place] [address] Jun, [facility] [address] [id number] [address] [place] [address], [place] [address] Jun, [facility] [address] [id number] [address] [place] [address], [place] [address] Jun, [facility] [address] [id number] [address] [place] [address], [place] [address] Jun, [facility] [address] [id number] [address] [place] [address], [place] [address] 30 May, 2013 [facility] [address] [id number] [address] [place] [address], [place] [address] 30 May, 2013 [facility] [address] [id number] [address] [place] [address], [place] [address] 30 May, 2013 [facility] [address] [id number] [address] [place] [address], [place] [address] 30 May, 2013 [facility] [address] [id number] [address] [place] [address], [place] [address] 26 May, 2013 [facility] [address] [id number] [address] [place] [address], [place] [address] 14 May, 2013 [facility] [address] [id number] [address] [place] [address], [place] [address] 14 May, 2013 [facility] [address] [id number] [address] [place] [address], [place] [address] May, [facility] [address] [id number] [address] [place] [address], [place] [address] May, [facility] [address] [id number] [address] [place] [address], [place] [address] May, [facility] [address] [id number] [address] [place] [address], [place] [address] May, [facility] [address] [id number] [address] [place] [address], [place] [address] May, [facility] [address] [id number] [address] [place] [address], [place] [address] May, [facility] [address] [id number] [address] [place] [address], [place] [address] May, [facility] [address] [id number] [address] [place] [address], [place] [address] May, [facility] [address] [id number] [address] [place] [address], [place] [address] May, [facility] [address] [id number] [address] [place] [address], [place] [address] May, [facility] [address] [id number] [address] [place] [address], [place] [address] May, [facility] [address] [id number] [address] [place] [address], [place] [address] May, [facility] [address] [id number] [address] [place] [address] May, [facility] [address] [id number] [address] [place] [address], [place] [address] May, [facility] [address] [id number] [address] [place] [address], [place] [address] Apr, [facility] [address] [id number] [address] [place] [address] Apr, [facility] [address] [id number] [address] [place] [address], [place] [address] Apr, [facility] [address] [id number] [address] [place] [address], [place] [address] Apr, [facility] [address] [id number] [address] [place] [address], [place] [address] 08 Mar, 2013 [facility] [address] [id number] [address] [place] [address], [place] [address] 23 Feb, 2013 [facility] [address] [id number] [address] [place] [address], [place] [address] 16 Feb, 2013 [facility] [address] [id number] [address] [place] [address], [place] [address] 13 Feb, 2013 [facility] [address] [id number] [address] [place] [address], [place] [address] 10 Feb, 2013 [facility] [address] [id number] [address] [place] [address], [place] [address] 09 Feb, 2013 [facility] [address] [id number] [address] [place] [address], [place] [address] Feb, [facility] [address] [id number] [address] [place] [address], [place] [address] Jan, [facility] [address] [id number] [address] [place] [address], [place] [address] Jan, [facility] [address] [id number] [address] [place] [address], [place] [address] Jan, [facility] [address] [id number] [address] [place] [address], [place] [address] Dec, [facility] [address] [id number] [address] [place] [address], [place] [address] Dec, [facility] [address] [id number] [address] [place] [address], [place] [address] Dec, [facility] [address] [id number] [address] [place] [address], [place] [address] Dec, [facility] [address] [id number] [facility] [place] [address] Dec, [facility] [address] [id number] [address] [place] [address], [place] [address] Nov, [facility] [address] [id number] [address] [place] [address], [place] [address] Nov, [facility] [address] [id number] [address] [place] [address], [place] [address] Nov, [facility] [address] [id number] [address] [place] [address], [place] [address] Nov, [facility] [address] [id number] [address] [place] [address], [place] [address] Nov, [facility] [address] [id number] [address] [place] [address], [place] [address] 08 Nov, 2012 [facility] [address] [id number] [address] [place] [address], [place] [address] Nov, [facility] [address] [id number] [address] [place] [address], [place] [address] Nov, [facility] [address] [id number] [address] [place] [address], [place] [address] 05 Nov, 2012 [facility] [address] [id number] [address] [place] [address], [place] [address] Nov, [facility] [address] [id number] [address] [place] [address], [place] [address] October, [facility] [address] [id number] [address] [place] [address], [place] [address] October, [facility] [address] [id number] [address] [place] [address], [place] [address] Sep, [facility] [address] [id number] [address] [place] [address], [place] [address] 08 Sep, 2012 [facility] [address] [id number] [address] [place] [address], [place] [address] Sep, [facility] [address] [id number] [address] [place] [address], [place] [address] Sep, [facility] [address] [id number] [address] [place] [address], [place] [address] Sep, [facility] [address] [id number] [address] [place] [address], [place] [address] Aug, [facility] [address] [id number] [address] [place] [address], [place] [address] Aug, [facility] [address] [id number] [address] [place] [address], [place] [address] Jul, [facility] [address] [id number] [address] [place] [address], [place] [address] Jul, [facility] [address] [id number] [address] [place] [address], [place] [address] Jun, [facility] [address] [id number] [address] [place] [address], [place] [address] Jun, [facility] [address] [id number] [address] [place] [address], [place] [address] May, [facility] [address] [id number] [address] [place] [address], [place] [address] May, [facility] [address] [id number] [address] [place] [address], [place] [address] May, [facility] [address] [id number] [address] [place] [address], [place] [address] May, [facility] [address] [id number] [address] [place] [address], [place] [address] Apr, [facility] [address] [id number] [address] [place] [address], [place] [address] Apr, [facility] [address] [id number] [address] [place] [address], [place] [address] Apr, [facility] [address] [id number] [address] [place] [address], [place] [address] Apr, [facility] [address] [id number] [address] [place] [address], [place] [address] 20 Apr, 2012 [facility] [address] [id number] [address] [place] [address], [place] [address] Apr, [facility] [address] [id number] [address] [place] [address], [place] [address] 14 Apr, 2012 [facility] [address] [id number] [address] [place] [address], [place] [address] Apr, [facility] [address] [id number] [address] [place] [address], [place] [address] Apr, [facility] [address] [id number] [address] [place] [address], [place] [address] 15 Mar, 2012 [facility] [address] [id number] [address] [place] [address], [place] [address] Mar, [facility] [address] [id number] [address] [place] [address], [place] [address] Feb, [facility] [address] [id number] [address] [place] [address], [place] [address] Jan, [facility] [address] [id number] [address] [place] [address], [place] [address] Jan, [facility] [address] [id number] [address] [place] [address], [place] [address] Dec, [facility] [address] [id number] [address] [place] [address], [place] [address] Nov, [facility] [address] [id number] [address] [place] [address], [place] [address] Nov, [facility] [address] [id number] [address] [place] [address], [place] [address] October, [facility] [address] [id number] [address] [place] [address], [place] [address] October, [facility] [address] [id number] [address] [place] [address], [place] [address] Sep, [facility] [address] [id number] [address] [place] [address], [place] [address] Sep, [facility] [address] [id number] [address] [place] [address], [place] [address] May, [facility] [address] [id number] [address] [place] [address], [place] [address] Apr, [facility] [address] [id number] [address] [place] [address], [place] [address] Apr, [facility] [address] [id number] [address] [place] [address], [place] [address] Apr, [facility] [address] [id number] [address] [place] [address], [place] [address] Apr, [facility] [address] [id number] [address] [place] [address], [place] [address] Apr, [facility] [address] [id number] [address] [place] [address], [place] [address] Apr, [facility] [address] [id number] [address] [place] [address], [place] [address] Apr, [facility] [address] [id number] [address] [place] [address], [place] [address] Apr, [facility] [address] [id number] [address] [place] [address], [place] [address] Mar, [facility] [address] [id number] [address] [place] [address], [place] [address] Mar, [facility] [address] [id number] [address] [place] [address], [place] [address] Mar, [facility] [address] [id number] [address] [place] [address], [place] [address] Mar, [facility] [address] [id number] [address] [address] Mar, [facility] [address] [facility] [id number] [address] [address] Mar, IMMUNIZATIONS No Known Immunizations SOCIAL HISTORY Never Assessed REASON FOR VISIT PLAN OF CARE VITAL SIGNS Height 62 in 2013-02-19 Weight 233 lbs 2013-02-19 Temperature 98 degrees Fahrenheit 2013-02-19 Heart Rate 80 bpm 2013-02-19 Respiratory Rate 22 2013-02-19 Blood pressure systolic 128 mmHg 2013-02-19 Blood pressure diastolic 92 mmHg 2013-02-19 MEDICATIONS Unknown Medications RESULTS No Results PROCEDURES No Known procedures INSTRUCTIONS MEDICATIONS ADMINISTERED No Known Medications MEDICAL (GENERAL) HISTORY Type Description Date Medical History HTN Medical History Depression Medical History Arthritis Medical History COPD Surgical History Breast lump removed Surgical History Removal of cyst from ovary Surgical History cholecystectomy Surgical History Stomach surgeryx3 Surgical History tubal ligation Hospitalization History Mental floor at [facility]
--- OUTSIDE RECORDS SUMMARY | 2019-12-24 19:36 | XMS REPORT ---
Author Author Trey ANDRADE Organization [facility] Address [address] [place] [address] Care Team Providers Care Professional Golf Tournament Player Name Role Phone SURESH ANDRADE Unavailable PROBLEMS Type Condition ICD9-CM Code MEP07-PQ Code Onset Dates Condition S tatus SNOMED Code Problem Unspecified epilepsy without mention of intractable ep ilepsy G40.909 Active 19164174 Problem Hypertension I10 Active 0844881 3 Problem Other chronic pain G89.29 Active 1 58563900 Problem Rheumatoid arthritis M06.9 Active 80244739 Problem Hyperlipidemia, unspecified E78.5 Ac tive 16642734 Problem Depressive disorder F32.9 Active 97830611 Problem Esophageal reflux K21.9 Active 23 7692686 Problem Carpal tunnel syndrome of left wrist G56.02 Active [id number] Problem Presbyopia H52.4 Active 08003768 Problem Cough R05 Active 48840399 Problem Nondependent 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 Ac tive 589772487 Problem Unspecified open-angle glaucoma, stage unspecified H40.10X0 Feb, Active 05249220 Problem Anxiety disorder, unspecified F41.9 Active 405168976 Problem Insomnia G47.00 Active 314413662 Problem Neuropathy G62.9 Active 845346270 Problem Thyroid nodule E04.1 Active 57781 5005 Problem Multinodular goiter E04.2 Active 440043656 Problem Chronic tension-type headache, intractable G44.221 Active 859022828 Problem Acquired hypothyroidism E03.9 Active 825632569 Problem Goiter E04.9 Active 0125223 Problem Chronic obstructive pulmonary disease, unspecified COPD ty pe J44.9 Active 06897263 Problem Reactive airway disease with out complication, unspecified asthma severity, unspecified whether persistent J45.909 Active 356143852635 Problem BMI 40.0-44.9, adult Z68.41 Active 833851931 Problem Essential hypertension I10 Active 83070859 Problem Right-sided low back pain without sciatica M54.5 Active 928904209 Problem Tension headache G44.209 Active 398 566139 Problem Depression F32.9 Active 07686355 Problem Arthralgia M25.50 Active 14224527 Problem Urge incontinence of urine N39.41 Act chen 73769400 Problem Abnormal laboratory test R89.9 Activ e 186007986 Problem COPD with exacerbation J44.1 Active 912566372 Problem Seasonal allergic rhinitis due to pollen J30.1 Active 69294861 ALLERGIES No Information ENCOUNTERS Encounter Location Date Diagnosis [facility] [address] [facility] [id number] [address] [place] [address] October, Thyroid nodule E04.1 and Mul tinodular goiter E04.2 [facility] [address] [facility] [id number] [address] [place] [id number] October, [facility] [address] [facility] [id number] [address] [place] [address] October, Thyroid nodule E04.1 and Mul tinodular goiter E04.2 [facility] [address] [facility] [id number] [address] [place] [address] Sep, Thyroid nodule E04.1 [facility] [address] [facility] [id number] [address] [place] [address] Sep, [facility] [address] [facility] [id number] [address] [place] [phone] Sep, Counseled by nurse Z71.9 and Thyroid nodule E04.1 [facility] [address] [facility] [id number] [address] [place] [address] Sep, Acquired hypothyroidism E03. 9 ; Tension headache G44.209 ; Essential hypertension I10 ; Multinodular goiter E04.2 and BMI 40.0-44.9, adult Z68.41 [facility] [address] [facility] [id number] [address] [place] [address] Aug, Pelvic pain R10.2 ; Other sp ecified bacterial agents as the cause of diseases classified elsewhere B96.89 and Acute vaginitis N76.0 [place] [address] [place] [id number] [address] [place] [address] Apr, Bronchitis J40 [place] [address] [facility] [id number] [address] [place] [address] Apr, Acute gastritis without hemo rrhage, unspecified gastritis type K29.00 [place] [address] [place] [id number] [place] [address] Mar, [place] [address] [place] [id number] [address] [place] [address] Feb, [place] [address] [place] [id number] [place] [address] Feb, Mass of right side of neck R 22.1 and Multinodular goiter E04.2 [facility] [place] [address] [place] [id number] [place] [address] Jan, Bronchitis J40 [place] [address] [place] [id number] [address] [place] [address] October, Acquired hypothyroidism E03. 9 [place] [address] [place] [id number] [place] [address] October, Acute gastritis without hemo rrhage, unspecified gastritis type K29.00 ; Epigastric pain R10.13 ; Essential hypertension I10 ; Screening for colon cancer Z12.11 and BMI 40.0-44.9, adult Z68.41 [place] [address] [place] [id number] [address] [place] [address] October, [facility] [place] [address] [place] [id number] [place] [address] October, Chest pain R07.9 and Morbid obesity E66.01 [facility] [place] [address] [place] [id number] [place] [address] Sep, Generalized abdominal pain R 10.84 ; Morbid obesity E66.01 ; Non-intractable vomiting with nausea, unspecified vomiting type R11.2 and Seasonal allergic rhinitis due to pollen J30.1 [facility] [address] [facility] [id number] [address] [place] [address] Jul, COPD with exacerbation J44.1 ; Viral upper respiratory tract infection J06.9 and Morbid obesity E66.01 [facility] [address] [facility] [id number] [address] [place] [address] Jun, Viral upper respiratory trac t infection J06.9 [facility] [address] [facility] [id number] [address] [place] [address] Apr, Abnormal laboratory test R89 .9 [place] [address] [place] [id number] [address] [place] [address] Apr, Abnormal laboratory test R89 .9 [place] [address] [place] [id number] [address] [place] [address] Apr, Abnormal laboratory test R89 .9 [place] [id number] [place] [address] Apr, [place] [address] [place] [id number] [address] [place] [address] Apr, [place] [address] [place] [id number] [address] [place] [address] Apr, Nonintractable episodic head ache, unspecified headache type R51 ; Urge incontinence of urine N39.41 ; BMI 40.0-44.9, adult Z68.41 ; Myalgia M79.10 and Acute cystitis without hematuria N30.00 [place] [address] [place] [id number] [address] [place] [address] Mar, Nasal congestion R09.81 ; Lo w back pain M54.5 ; Reactive airway disease without complication, unspecified asthma severity, unspecified whether persistent J45.909 ; Other chronic pain G89.29 ; Acute cystitis with hematuria N30.01 and BMI 40.0-44.9, adult Z68.41 [place] [address] [address] Mar, Acute cystitis with hematuri a N30.01 [facility] [address] [address] Mar, BMI 40.0-44.9, adult Z68.41 ; Acute cystitis with hematuria N30.01 ; Acute bilateral low back pain without sciatica M54.5 and Nausea R11.0 [place] [address] [address] Mar, Hypertension I10 ; Acquired hypothyroidism E03.9 ; Esophageal reflux K21.9 ; Chronic obstructive pulmonary disease, unspecified COPD type J44.9 and BMI 40.0-44.9, adult Z68.41 [place] [address] [address] Mar, Hypertension I10 [address] [address] Nov, Hyperlipidemia, unspecified E78.[address] [address] October, Chest pain, unspecified type R07.9 and Acquired hypothyroidism E03.[address] [address] October, Chest pain, unspecified type R07.9 ; Family history of coronary artery disease Z82.49 ; Carpal tunnel syndrome of left wrist G56.02 ; Hypertension I10 ; Esophageal reflux K21.9 ; Arthralgia M25.50 ; Acquired hypothyroidism E03.9 ; Cough R05 ; Nausea R11.0 ; Weight gain R63.5 and BMI 45.0-49.9, adult Z68.[address] [address] Jun, Acquired hypothyroidism E03. 9 and Cough R05 [address] [address] May, [place] [address] [place] [id number] [address] [place] [address] Feb, Tarsal tunnel syndrome of timi th lower extremities G57.53 and Neuropathy G62.9 [place] [address] [facility] [id number] [address] [place] [address] Dec, Pleuritis R09.1 [place] [address] [place] [id number] [address] [place] [address] Nov, [place] [address] [place] [address] October, Arthralgia, unspecified join t M25.50 and Allergy, initial encounter T78.40XA [place] [address] [place] [id number] [address] [place] [address] October, [place] [address] [address] October, Acute recurrent maxillary si nusitis J01.01 and Arthralgia M25.50 [place] [address] [place] [id number] [address] [place] [address] Sep, Pharyngitis due to other org anism J02.8 [place] [address] [place] [id number] [address] [place] [address] Aug, Acute nasopharyngitis J00 [place] [address] [place] [id number] [address] [place] [address] Aug, Multinodular goiter E04.2 [place] [address] [place] [id number] [address] [place] [address] Aug, Thyroid nodule E04.1 [place] [address] [place] [id number] [address] [place] [address] 17 Jul, 2016 Tarsal tunnel syndrome of timi th lower extremities G57.53 [place] [address] [place] [id number] [address] [place] [address] Jun, Pneumonia due to infectious organism, unspecified laterality, unspecified part of lung J18.9 [place] [address] [address] Jun, Bronchospasm with bronchitis , acute J20.9 [place] [address] [address] May, Acute non-recurrent frontal sinusitis J01.10 [place] [address] [address] May, Flat foot [pes planus] (acqu ired), left foot M21.42 ; Flat foot [pes planus] (acquired), right foot M21.41 and Neuropathy G62.9 [place] [address] [address] Apr, Chronic tension-type headach e, intractable G44.221 ; Right lower quadrant abdominal pain R10.31 ; Cervicalgia M54.2 ; Acute gastritis without hemorrhage, unspecified gastritis type K29.00 and Hypertension I10 [place] [address] [address] Mar, Depression F32.9 and Anxiety disorder, unspecified F41.9 [place] [address] [place] [id number] [address] [place] [address] Feb, Depressive disorder F32.9 an d Anxiety disorder, unspecified F41.9 [place] [address] [place] [id number] [address] [place] [address] Jan, Dysuria R30.0 ; Lower abdomi nal pain R10.30 ; Acute bilateral low back pain without sciatica M54.5 ; Nausea and vomiting, unspecified intactability, vomiting of unspecified type R11.2 ; Pain in right foot M79.671 and Pain of left foot M79.672 [place] [address] [address] Dec, Urinary tract infection, sit e not specified N39.0 [facility] [address] [id number] [address] [place] [address] Dec, [facility] [address] [facility] [id number] [address] [place] [address] Nov, [facility] [address] [facility] [id number] [address] [place] [address] Nov, Dysuria R30.0 [facility] [address] [facility] [id number] [address] [place] [address] Nov, Dysuria R30.0 and Acute cyst itis with hematuria N30.01 [facility] [address] [facility] [id number] [address] [place] [address] October, Nausea R11.0 [facility] [address] [facility] [id number] [address] [place] [address] October, Thyroid nodule E04.1 ; Carpa l tunnel syndrome, left upper limb G56.02 ; Carpal tunnel syndrome, right upper limb G56.01 and Constipation, unspecified constipation type K59.00 [facility] [address] [facility] [id number] [address] [place] [address] October, [facility] [address] [facility] [id number] [address] [place] [address] October, Thyroid nodule E04.1 [facility] [address] [facility] [id number] [address] [place] [address] October, Cold thyroid nodule E04.1 [facility] [address] [facility] [id number] [address] [place] [address] October, [facility] [address] [facility] [id number] [address] [place] [address] Sep, Thyroid nodule E04.1 [facility] [address] [facility] [id number] [address] [place] [address] Sep, Thyroid nodule E04.1 [facility] [address] [address] Sep, Thyroid nodule E04.1 ; Hyper tension I10 ; Esophageal reflux K21.9 and Hyperlipidemia, unspecified E78.5 [facility] [address] [place] [id number] [address] [place] [address] 14 Aug, 2015 Other chronic pain G89.29 ; Sinusitis J32.9 and Hypertension I10 [place] [address] [place] [id number] [place] [address] 29 Jul, 2015 [place] [address] [address] 15 Jul, 2015 [place] [address] [address] 10 Jul, 2015 Insomnia G47.00 and Arthralg ia M25.50 [place] [address] [address] 10 Jul, 2015 Depressive disorder F32.9 an d Anxiety disorder, unspecified F41.9 [place] [address] [address] May, Right-sided low back pain wi thout sciatica M54.5 and Depression F32.9 [place] [address] [address] Apr, Hematuria R31.9 [place] [address] [place] [id number] [place] [address] Mar, Other chronic pain G89.29 [place] [address] [place] [id number] [place] [address] Mar, Other chronic pain G89.29 [place] [address] [place] [id number] [place] [address] Feb, [place] [address] [place] [id number] [place] [address] Feb, Other chronic pain 338.29 ; Dysuria 788.1 ; UTI (urinary tract infection) 599.0 ; Insomnia 780.52 ; Hot flashes 627.2 and Hypertension 401.9 [facility] [address] [facility] [id number] [address] [place] [address] Feb, Dysuria 788.1 [facility] [address] [facility] [id number] [address] [place] [address] Feb, [facility] [address] [facility] [id number] [address] [place] [address] Jan, [facility] [address] [facility] [id number] [address] [place] [address] Jan, [facility] [address] [place] [id number] [address] [place] [address] Jan, Fibromyalgia 729.1 ; Hyperte nsion 401.9 ; Dysthymia 300.4 and Hot flashes 627.2 [facility] [address] [facility] [id number] [address] [place] [address] Dec, [facility] [address] [facility] [id number] [address] [place] [address] Dec, [facility] [address] [facility] [id number] [address] [place] [address] Dec, [facility] [address] [facility] [id number] [address] [place] [address] Nov, Other chronic pain 338.29 [facility] [address] [facility] [id number] [address] [place] [address] October, [facility] [address] [facility] [id number] [address] [place] [address] October, [facility] [address] [facility] [id number] [address] [place] [address] Sep, [facility] [address] [facility] [id number] [address] [place] [address] Sep, [facility] [address] [id number] [facility] [place] [address] 26 Aug, 2014 [facility] [address] [id number] [address] [place] [address], [place] [address] Aug, [facility] [address] [id number] [address] [place] [address], [place] [address] Aug, [facility] [address] [id number] [address] [place] [address], [place] [address] Aug, [facility] [address] [id number] [address] [place] [address], [place] [address] Aug, [facility] [address] [id number] [address] [place] [address], [place] [address] Aug, [facility] [address] [id number] [address] [place] [address], [place] [address] Aug, [facility] [address] [id number] [address] [place] [address], [place] [address] Aug, [facility] [address] [id number] [address] [place] [address], [place] [address] Aug, [facility] [address] [id number] [address] [place] [address], [place] [address] Aug, [facility] [address] [id number] [address] [place] [address], [place] [address] Aug, [facility] [address] [id number] [address] [place] [address], [place] [address] Aug, [facility] [address] [id number] [address] [place] [address], [place] [address] Aug, [facility] [address] [id number] [address] [place] [address], [place] [address] Aug, [facility] [address] [id number] [address] [place] [address], [place] [address] Jul, [facility] [address] [id number] [address] [place] [address], [place] [address] Jul, [facility] [address] [id number] [address] [place] [address], [place] [address] Jul, [facility] [address] [id number] [address] [place] [address], [place] [address] Jul, [facility] [address] [id number] [address] [place] [address], [place] [address] Jul, [facility] [address] [id number] [address] [place] [address], [place] [address] Jul, [facility] [address] [id number] [address] [place] [address], [place] [address] Jun, [facility] [address] [id number] [address] [place] [address], [place] [address] Jun, [facility] [address] [id number] [address] [place] [address], [place] [address] Jun, [facility] [address] [id number] [address] [place] [address], [place] [address] Jun, [facility] [address] [id number] [address] [place] [address], [place] [address] May, [facility] [address] [id number] [address] [place] [address], [place] [address] May, [facility] [address] [id number] [address] [place] [address], [place] [address] May, [facility] [address] [id number] [address] [place] [address], [place] [address] May, [facility] [address] [id number] [address] [place] [address], [place] [address] May, [facility] [address] [id number] [address] [place] [address], [place] [address] May, [facility] [address] [id number] [address] [place] [address], [place] [address] May, [facility] [address] [id number] [address] [place] [address], [place] [address] May, [facility] [address] [id number] [address] [place] [address], [place] [address] May, [facility] [address] [id number] [address] [place] [address], [place] [address] May, [facility] [address] [id number] [address] [place] [address], [place] [address] Apr, [facility] [address] [id number] [address] [place] [address], [place] [address] Apr, [facility] [address] [id number] [address] [place] [address], [place] [address] Apr, [facility] [address] [id number] [address] [place] [address], [place] [address] Apr, [facility] [address] [id number] [address] [place] [address], [place] [address] Apr, [facility] [address] [id number] [address] [place] [address], [place] [address] Apr, [facility] [address] [id number] [address] [place] [address], [place] [address] Apr, [facility] [address] [id number] [address] [place] [address], [place] [address] Apr, [facility] [address] [id number] [address] [place] [address], [place] [address] Apr, [facility] [address] [id number] [address] [place] [address], [place] [address] Mar, [facility] [address] [id number] [address] [place] [address], [place] [address] Mar, [facility] [address] [id number] [address] [place] [address], [place] [address] Mar, [facility] [address] [id number] [address] [place] [address], [place] [address] Mar, [facility] [address] [id number] [address] [place] [address], [place] [address] Mar, [facility] [address] [id number] [address] [place] [address], [place] [address] Mar, [facility] [address] [id number] [address] [place] [address], [place] [address] Mar, [facility] [address] [id number] [address] [place] [address], [place] [address] Mar, [facility] [address] [id number] [address] [place] [address], [place] [address] 30 Feb, 2014 [facility] [address] [id number] [address] [place] [address], [place] [address] 30 Feb, 2013 [facility] [address] [id number] [address] [place] [address], [place] [address] 24 Feb, 2014 [facility] [address] [id number] [address] [place] [address], [place] [address] 24 Feb, 2013 [facility] [address] [id number] [address] [place] [address], [place] [address] 22 Feb, 2013 [facility] [address] [id number] [address] [place] [address], [place] [address] 22 Feb, 2013 [facility] [address] [id number] [address] [place] [address], [place] [address] 10 Feb, 2013 [facility] [address] [id number] [address] [place] [address], [place] [address] 10 Feb, 2013 [facility] [address] [id number] [address] [place] [address], [place] [address] 03 Feb, 2013 [facility] [address] [id number] [address] [place] [address], [place] [address] 03 Feb, 2013 [facility] [address] [id number] [address] [place] [address], [place] [address] 03 Feb, 2013 [facility] [address] [id number] [address] [place] [address], [place] [address] Feb, 2013 [facility] [address] [id number] [address] [place] [address] Feb, [facility] [address] [id number] [address] [place] [address], [place] [address] Feb, [facility] [address] [id number] [address] [place] [address], [place] [address] Jan, [facility] [address] [id number] [address] [place] [address], [place] [address] Jan, [facility] [address] [id number] [address] [place] [address], [place] [address] Dec, [facility] [address] [id number] [address] [place] [address], [place] [address] Dec, [facility] [address] [id number] [address] [place] [address], [place] [address] Dec, [facility] [address] [id number] [address] [place] [address], [place] [address] Dec, [facility] [address] [id number] [address] [place] [address], [place] [id number] Dec, [facility] [address] [id number] [address] [place] [address], [place] [address] Dec, [facility] [address] [id number] [address] [place] [address], [place] [address] Dec, [facility] [address] [id number] [address] [place] [address], [place] [address] Dec, [facility] [address] [id number] [address] [place] [address], [place] [address] Dec, [facility] [address] [id number] [address] [place] [address], [place] [address] Dec, [facility] [address] [id number] [address] [place] [address], [place] [address] Dec, [facility] [address] [id number] [facility] [place] [address] 14 Dec, 2013 [facility] [address] [id number] [facility] [place] [address] Dec, 2013 [facility] [address] [id number] [address] [place] [address], [place] [address] Dec, 2013 [facility] [address] [id number] [address] [place] [address], [place] [address] Dec, 2013 [facility] [address] [id number] [address] [place] [address], [place] [address] Dec, 2013 [facility] [address] [id number] [address] [place] [address], [place] [address] Dec, 2013 [facility] [address] [id number] [address] [place] [address], [place] [address] Dec, 2013 [facility] [address] [id number] [address] [place] [address], [place] [address] Dec, [facility] [address] [id number] [address] [place] [address], [place] [address] Nov, [facility] [address] [id number] [address] [place] [address], [place] [address] Nov, [facility] [address] [id number] [address] [place] [address], [place] [address] Nov, [facility] [address] [id number] [address] [place] [address], [place] [address] Nov, [facility] [address] [id number] [address] [place] [address], [place] [address] Nov, [facility] [address] [id number] [address] [place] [address], [place] [address] Nov, [facility] [address] [id number] [address] [place] [address], [place] [address] Nov, [facility] [address] [id number] [address] [place] [address] [address] Nov, [facility] [address] [id number] [facility] [place] [address] Nov, [facility] [address] [id number] [address] [place] [address], [place] [address] October, [facility] [address] [id number] [address] [place] [address], [place] [address] October, [facility] [address] [id number] [address] [place] [address], [place] [address] October, [facility] [address] [id number] [address] [place] [address], [place] [address] October, [facility] [address] [id number] [address] [place] [address], [place] [address] October, [facility] [address] [id number] [address] [place] [address], [place] [address] October, [facility] [address] [id number] [address] [place] [address], [place] [address] October, [facility] [address] [id number] [address] [place] [address], [place] [address] October, [facility] [address] [id number] [address] [place] [address], [place] [address] Sep, [facility] [address] [id number] [address] [place] [address], [place] [address] Sep, [facility] [address] [id number] [address] [place] [address], [place] [address] Sep, [facility] [address] [id number] [address] [place] [address], [place] [address] Sep, [facility] [address] [id number] [address] [place] [address], [place] [address] Sep, [facility] [address] [id number] [address] [place] [address], [place] [address] Sep, [facility] [address] [id number] [address] [place] [address], [place] [address] Sep, [facility] [address] [id number] [address] [place] [address], [place] [address] Aug, [facility] [address] [id number] [address] [place] [address], [place] [address] Aug, [facility] [address] [id number] [address] [place] [address], [place] [address] Aug, [facility] [address] [id number] [address] [place] [address], [place] [address] Aug, [facility] [address] [id number] [address] [place] [address], [place] [address] Aug, [facility] [address] [id number] [address] [place] [address], [place] [address] Aug, [facility] [address] [id number] [address] [place] [address], [place] [address] Jul, [facility] [address] [id number] [address] [place] [address], [place] [address] Jul, [facility] [address] [id number] [address] [place] [address], [place] [address] Jul, [facility] [address] [id number] [address] [place] [address], [place] [address] Jul, [facility] [address] [id number] [address] [place] [address], [place] [address] Jul, [facility] [address] [id number] [address] [place] [address], [place] [address] Jul, [facility] [address] [id number] [address] [place] [address], [place] [address] Jun, [facility] [address] [id number] [address] [place] [address], [place] [address] Jun, [facility] [address] [id number] [address] [place] [address], [place] [address] Jun, [facility] [address] [id number] [address] [place] [address], [place] [address] Jun, [facility] [address] [id number] [address] [place] [address], [place] [address] Jun, [facility] [address] [id number] [address] [place] [address], [place] [address] Jun, [facility] [address] [id number] [address] [place] [address], [place] [address] Jun, [facility] [address] [id number] [address] [place] [address], [place] [address] Jun, [facility] [address] [id number] [address] [place] [address], [place] [address] Jun, [facility] [address] [id number] [address] [place] [address], [place] [address] Jun, [facility] [address] [id number] [address] [place] [address], [place] [address] Jun, [facility] [address] [id number] [address] [place] [address], [place] [address] Jun, [facility] [address] [id number] [address] [place] [address], [place] [address] Jun, [facility] [address] [id number] [address] [place] [address], [place] [address] May, [facility] [address] [id number] [address] [place] [address], [place] [address] May, [facility] [address] [id number] [address] [place] [address], [place] [address] May, [facility] [address] [id number] [address] [place] [address], [place] [address] May, [facility] [address] [id number] [address] [place] [address], [place] [address] May, [facility] [address] [id number] [address] [place] [address], [place] [address] 14 May, 2013 [facility] [address] [id number] [address] [place] [address], [place] [address] 14 May, 2013 [facility] [address] [id number] [address] [place] [address], [place] [address] 12 May, 2013 [facility] [address] [id number] [address] [place] [address], [place] [address] 12 May, 2013 [facility] [address] [id number] [address] [place] [address], [place] [address] 11 May, 2013 [facility] [address] [id number] [address] [place] [address], [place] [address] 11 May, 2013 [facility] [address] [id number] [address] [place] [address], [place] [address] 10 May, 2013 [facility] [address] [id number] [address] [place] [address], [place] [address] 10 May, 2013 [facility] [address] [id number] [address] [place] [address], [place] [address] 09 May, 2013 [facility] [address] [id number] [address] [place] [address], [place] [address] 09 May, 2013 [facility] [address] [id number] [address] [place] [address], [place] [address] 08 May, 2013 [facility] [address] [id number] [address] [place] [address], [place] [address] 07 May, 2013 [facility] [address] [id number] [address] [place] [address], [place] [address] 06 May, 2013 [facility] [address] [id number] [address] [place] [address], [place] [address] 06 May, 2013 [facility] [address] [id number] [address] [place] [address], [place] [address] 06 May, 2013 [facility] [address] [id number] [address] [place] [address], [place] [address] 06 May, 2013 [facility] [address] [id number] [address] [place] [address], [place] [address] Apr, [facility] [address] [id number] [address] [place] [address], [place] [address] Apr, [facility] [address] [id number] [address] [place] [address], [place] [address] Apr, [facility] [address] [id number] [address] [place] [address], [place] [address] Apr, [facility] [address] [id number] [address] [place] [address], [place] [address] Mar, [facility] [address] [id number] [address] [place] [address], [place] [address] 23 Feb, 2013 [facility] [address] [id number] [address] [place] [address], [place] [address] 16 Feb, 2013 [facility] [address] [id number] [address] [place] [address], [place] [address] 13 Feb, 2013 [facility] [address] [id number] [address] [place] [address], [place] [address] 10 Feb, 2013 [facility] [address] [id number] [address] [place] [address], [place] [address] 09 Feb, 2013 [facility] [address] [id number] [address] [place] [address], [place] [address] Feb, [facility] [address] [id number] [address] [place] [address], [place] [address] Jan, [facility] [address] [id number] [address] [place] [address], [place] [address] Jan, [facility] [address] [id number] [address] [place] [address], [place] [address] Jan, [facility] [address] [id number] [address] [place] [address], [place] [address] Dec, [facility] [address] [id number] [address] [place] [address], [place] [address] 17 Dec, 2012 [facility] [address] [id number] [address] [place] [address], [place] [address] 17 Dec, 2012 [facility] [address] [id number] [address] [place] [address], [place] [address] 15 Dec, 2012 [facility] [address] [id number] [address] [place] [address], [place] [address] Dec, [facility] [address] [id number] [address] [place] [address], [place] [address] Nov, [facility] [address] [id number] [address] [place] [address], [place] [address] Nov, [facility] [address] [id number] [address] [place] [address], [place] [address] Nov, [facility] [address] [id number] [address] [place] [address], [place] [address] Nov, [facility] [address] [id number] [address] [place] [address], [place] [address] Nov, [facility] [address] [id number] [address] [place] [address], [place] [address] 08 Nov, 2012 [facility] [address] [id number] [address] [place] [address], [place] [address] Nov, [facility] [address] [id number] [address] [place] [address], [place] [address] Nov, [facility] [address] [id number] [address] [place] [address], [place] [address] 05 Nov, 2012 [facility] [address] [id number] [address] [place] [address], [place] [address] Nov, [facility] [address] [id number] [address] [place] [address], [place] [address] October, [facility] [address] [id number] [address] [place] [address], [place] [address] October, [facility] [address] [id number] [address] [place] [address], [place] [address] Sep, [facility] [address] [id number] [address] [place] [address], [place] [address] Sep, [facility] [address] [id number] [address] [place] [address], [place] [address] Sep, [facility] [address] [id number] [address] [place] [address], [place] [address] Sep, [facility] [address] [id number] [address] [place] [address], [place] [address] Sep, [facility] [address] [id number] [address] [place] [address], [place] [address] Aug, [facility] [address] [id number] [address] [place] [address], [place] [address] Aug, [facility] [address] [id number] [address] [place] [address], [place] [address] Jul, [facility] [address] [id number] [address] [place] [address], [place] [address] Jul, [facility] [address] [id number] [address] [place] [address], [place] [address] Jun, [facility] [address] [id number] [address] [place] [address], [place] [address] Jun, [facility] [address] [id number] [address] [place] [address], [place] [address] May, [facility] [address] [id number] [address] [place] [address], [place] [address] May, [facility] [address] [id number] [address] [place] [address], [place] [address] May, [facility] [address] [id number] [address] [place] [address], [place] [address] May, [facility] [address] [id number] [address] [place] [address], [place] [address] Apr, [facility] [address] [id number] [address] [place] [address], [place] [address] Apr, [facility] [address] [id number] [address] [place] [address], [place] [address] Apr, [facility] [address] [id number] [address] [place] [address], [place] [address] Apr, [facility] [address] [id number] [address] [place] [address], [place] [address] Apr, [facility] [address] [id number] [address] [place] [address], [place] [address] Apr, [facility] [address] [id number] [address] [place] [address], [place] [address] Apr, [facility] [address] [id number] [address] [place] [address], [place] [address] Apr, [facility] [address] [id number] [address] [place] [address], [place] [address] Apr, [facility] [address] [id number] [address] [place] [address], [place] [address] Mar, [facility] [address] [id number] [address] [place] [address] Mar, [facility] [address] [id number] [address] [place] [address] Feb, [facility] [address] [id number] [address] [place] [address] Jan, [facility] [address] [id number] [address] [place] [address], [place] [address] Jan, [facility] [address] [id number] [address] [place] [address] Dec, [facility] [address] [id number] [address] [place] [address] Nov, [facility] [address] [id number] [address] [place] [address] Nov, [facility] [address] [id number] [address] [place] [address], [place] [address] October, [facility] [address] [id number] [address] [place] [address], [place] [address] October, [facility] [address] [id number] [address] [place] [address], [place] [address] Sep, [facility] [address] [id number] [address] [place] [address], [place] [address] Sep, [facility] [address] [id number] [address] [place] [address], [place] [address] May, [facility] [address] [id number] [address] [place] [address], [place] [address] Apr, [facility] [address] [id number] [address] [place] [address] Apr, [facility] [address] [id number] [address] [place] [address], [place] [address] Apr, [facility] [address] [id number] [address] [place] [address], [place] [address] Apr, [facility] [address] [id number] [address] [place] [address] Apr, [facility] [address] [id number] [address] [place] [address], [place] [id number] Apr, [facility] [address] [id number] [address] [place] [id number] Apr, [facility] [address] [id number] [address] [place] [address], [place] [id number] Apr, [facility] [address] [id number] [address] [place] [address], [place] [id number] Mar, [facility] [address] [id number] [address] [place] [address], [place] [id number] Mar, [facility] [address] [facility] [id number] [address] [place] [id number] Mar, [facility] [address] [facility] [id number] [address] [place] [id number] Mar, [facility] [address] [facility] [id number] [address] [place] [id number] Mar, [facility] [address] [facility] [id number] [address] [place] [id number] Mar, IMMUNIZATIONS No Known Immunizations SOCIAL HISTORY Never Assessed REASON FOR VISIT PLAN OF CARE VITAL SIGNS Height 62 in 2012-12-27 Weight 223 lbs 2012-12-27 Temperature 98.3 degrees Fahrenheit 2012-12-27 Heart Rate 78 bpm 2012-12-27 Respiratory Rate 20 2012-12-27 Blood pressure systolic 114 mmHg 2012-12-27 Blood pressure diastolic 86 mmHg 2012-12-27 MEDICATIONS Unknown Medications RESULTS No Results PROCEDURES Procedure Date Ordered Result Body Site PSYCH DIAGNOSTIC EVALUATION December 27, 2012 INSTRUCTIONS MEDICATIONS ADMINISTERED No Known Medications MEDICAL (GENERAL) HISTORY Type Description Date Medical History HTN Medical History Depression Medical History Arthritis Medical History COPD Surgical History Breast lump removed Surgical History Removal of cyst from ovary Surgical History cholecystectomy Surgical History Stomach surgeryx3 Surgical History tubal ligation Hospitalization History Mental floor at [facility]
--- OUTSIDE RECORDS SUMMARY | 2019-12-24 19:36 | XMS REPORT ---
Author Author Trey CONTRERAS Organization [facility] Address [address] [place] [address] Care Team Providers Care Food Storeroom Clerk Name Role Phone MAINOR CONTRERAS Unavailable PROBLEMS Type Condition ICD9-CM Code [id number] Code Onset Dates Condition S tatus SNOMED Code Problem Unspecified epilepsy without mention of intractable ep ilepsy G40.909 Active 56741734 Problem Hypertension I10 Active 1895709 3 Problem Other chronic pain G89.29 Active 1 88697696 Problem Rheumatoid arthritis M06.9 Active 59921039 Problem Hyperlipidemia, unspecified E78.5 Ac tive 06473507 Problem Depressive disorder F32.9 Active 63851942 Problem Esophageal reflux K21.9 Active 23 8324392 Problem Carpal tunnel syndrome of left wrist G56.02 Active 227295183257503 Problem Presbyopia H52.4 Active 92223278 Problem Cough R05 Active 37248772 Problem Nondependent 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 Ac tive 815672488 Problem Unspecified open-angle glaucoma, stage unspecified H40.10X0 Feb, Active 47756505 Problem Anxiety disorder, unspecified F41.9 Active 708830743 Problem Insomnia G47.00 Active 199055549 Problem Neuropathy G62.9 Active 186481224 Problem Thyroid nodule E04.1 Active 72398 5005 Problem Multinodular goiter E04.2 Active 325242907 Problem Chronic tension-type headache, intractable G44.221 Active 361249043 Problem Acquired hypothyroidism E03.9 Active 486634382 Problem Goiter E04.9 Active 7788015 Problem Chronic obstructive pulmonary disease, unspecified COPD ty pe J44.9 Active 00644193 Problem Reactive airway disease with out complication, unspecified asthma severity, unspecified whether persistent J45.909 Active 309385945962 Problem BMI 40.0-44.9, adult Z68.41 Active 108217946 Problem Essential hypertension I10 Active 62334558 Problem Right-sided low back pain without sciatica M54.5 Active 927237959 Problem Tension headache G44.209 Active 398 303991 Problem Depression F32.9 Active 61887012 Problem Arthralgia M25.50 Active 92379145 Problem Urge incontinence of urine N39.41 Act chen 44367678 Problem Abnormal laboratory test R89.9 Activ e 861637032 Problem COPD with exacerbation J44.1 Active 225225148 Problem Seasonal allergic rhinitis due to pollen J30.1 Active 96777618 ALLERGIES No Information ENCOUNTERS Encounter Location Date Diagnosis [facility] [address] [facility] [id number] [address] [place] [address] [id number] October, [facility] [address] [address] October, Thyroid nodule E04.1 and Mul tinodular goiter E04.2 [facility] [address] [place] [id number] [address] [place] [address] Sep, Thyroid nodule E04.1 [facility] [address] [place] [address] Sep, [facility] [address] [place] [id number] [address] [place] [address] Sep, Counseled by nurse Z71.9 and Thyroid nodule E04.1 [facility] [address] [place] [id number] [address] [place] [address] Sep, Acquired hypothyroidism E03. 9 ; Tension headache G44.209 ; Essential hypertension I10 ; Multinodular goiter E04.2 and BMI 40.0-44.9, adult Z68.41 [facility] [address] [place] [id number] [address] [place] [address] Aug, Pelvic pain R10.2 ; Other sp ecified bacterial agents as the cause of diseases classified elsewhere B96.89 and Acute vaginitis N76.0 [facility] [address] [place] [id number] [address] [place] [address] Apr, Bronchitis J40 [facility] [address] [address] Apr, Acute gastritis without hemo rrhage, unspecified gastritis type K29.00 [place] [address] [address] Mar, [place] [address] [address] Feb, [place] [address] [address] Feb, Mass of right side of neck R 22.1 and Multinodular goiter E04.2 [facility] [place] [address] [address] Jan, Bronchitis J40 [place] [address] [address] October, Acquired hypothyroidism E03. 9 [place] [address] [address] October, Acute gastritis without hemo rrhage, unspecified gastritis type K29.00 ; Epigastric pain R10.13 ; Essential hypertension I10 ; Screening for colon cancer Z12.11 and BMI 40.0-44.9, adult Z68.41 [place] [address] [address] October, [facility] [place] [address] [address] October, Chest pain R07.9 and Morbid obesity E66.01 [facility] [place] [address] [address] Sep, Generalized abdominal pain R 10.84 ; Morbid obesity E66.01 ; Non-intractable vomiting with nausea, unspecified vomiting type R11.2 and Seasonal allergic rhinitis due to pollen J30.1 [facility] [place] [address] [address] 28 Feb, 2019 COPD with exacerbation J44.1 ; Viral upper respiratory tract infection J06.9 and Morbid obesity E66.01 [facility] [address] [facility] [id number] [address] [place] [address] Jun, Viral upper respiratory trac t infection J06.9 [facility] [address] [facility] [id number] [address] [place] [address] Apr, Abnormal laboratory test R89 .9 [facility] [address] [facility] [id number] [address] [place] [address] Apr, Abnormal laboratory test R89 .9 [facility] [address] [facility] [id number] [address] [place] [address] Apr, Abnormal laboratory test R89 .9 [facility] [address] [place] [id number] [address] [place] [address] Apr, [place] [address] [address] Apr, [facility] [address] [place] [id number] [address] [place] [address] Apr, Nonintractable episodic head ache, unspecified headache type R51 ; Urge incontinence of urine N39.41 ; BMI 40.0-44.9, adult Z68.41 ; Myalgia M79.10 and Acute cystitis without hematuria N30.00 [place] [address] [address] Mar, Nasal congestion R09.81 ; Lo w back pain M54.5 ; Reactive airway disease without complication, unspecified asthma severity, unspecified whether persistent J45.909 ; Other chronic pain G89.29 ; Acute cystitis with hematuria N30.01 and BMI 40.0-44.9, adult Z68.41 [facility] [address] [place] [id number] [address] [place] [address] Mar, Acute cystitis with hematuri a N30.01 [facility] [address] [place] [id number] [address] [place] [address] Mar, BMI 40.0-44.9, adult Z68.41 ; Acute cystitis with hematuria N30.01 ; Acute bilateral low back pain without sciatica M54.5 and Nausea R11.0 [place] [address] [address] 17 Mar, 2018 Hypertension I10 ; Acquired hypothyroidism E03.9 ; Esophageal reflux K21.9 ; Chronic obstructive pulmonary disease, unspecified COPD type J44.9 and BMI 40.0-44.9, adult Z68.41 [place] [address] [address] Mar, Hypertension I10 [address] [address] Nov, Hyperlipidemia, unspecified E78.5 [place] [address] [address] October, Chest pain, unspecified type R07.9 and Acquired hypothyroidism E03.9 [place] [address] [address] October, Chest pain, unspecified type R07.9 ; Family history of coronary artery disease Z82.49 ; Carpal tunnel syndrome of left wrist G56.02 ; Hypertension I10 ; Esophageal reflux K21.9 ; Arthralgia M25.50 ; Acquired hypothyroidism E03.9 ; Cough R05 ; Nausea R11.0 ; Weight gain R63.5 and BMI 45.0-49.9, adult Z68.42 [place] [address] [address] Jun, Acquired hypothyroidism E03. 9 and Cough R05 [address] [address] May, [address] [address] Feb, Tarsal tunnel syndrome of timi th lower extremities G57.53 and Neuropathy G62.9 [place] [address] [facility] [id number] [address] [place] [address] Dec, Pleuritis R09.1 [place] [address] [facility] [id number] [address] [place] [address] Nov, [place] [address] [place] [id number] [address] [place] [address] October, Arthralgia, unspecified join t M25.50 and Allergy, initial encounter T78.40XA [place] [address] [place] [id number] [address] [place] [address] October, [place] [address] [place] [address] October, Acute recurrent maxillary si nusitis J01.01 and Arthralgia M25.50 [place] [address] [place] [id number] [place] [address] Sep, Pharyngitis due to other org anism J02.8 [place] [address] [place] [id number] [address] [place] [address] Aug, Acute nasopharyngitis J00 [place] [address] [place] [id number] [address] [place] [address] Aug, Multinodular goiter E04.2 [place] [address] [place] [id number] [address] [place] [address] Aug, Thyroid nodule E04.1 [place] [address] [place] [id number] [address] [place] [address] Jul, Tarsal tunnel syndrome of timi th lower extremities G57.53 [place] [address] [facility] [id number] [address] [place] [address] Jun, Pneumonia due to infectious organism, unspecified laterality, unspecified part of lung J18.9 [place] [address] [place] [id number] [address] [place] [address] Jun, Bronchospasm with bronchitis , acute J20.9 [place] [address] [place] [id number] [address] [place] [address] May, Acute non-recurrent frontal sinusitis J01.10 [place] [address] [place] [id number] [address] [place] [address] May, Flat foot [pes planus] (acqu ired), left foot M21.42 ; Flat foot [pes planus] (acquired), right foot M21.41 and Neuropathy G62.9 [place] [address] [place] [id number] [address] [place] [address] Apr, Chronic tension-type headach e, intractable G44.221 ; Right lower quadrant abdominal pain R10.31 ; Cervicalgia M54.2 ; Acute gastritis without hemorrhage, unspecified gastritis type K29.00 and Hypertension I10 [place] [address] [address] Mar, Depression F32.9 and Anxiety disorder, unspecified F41.9 [place] [address] [address] Feb, Depressive disorder F32.9 an d Anxiety disorder, unspecified F41.9 [place] [address] [place] [id number] [address] [place] [address] Jan, Dysuria R30.0 ; Lower abdomi nal pain R10.30 ; Acute bilateral low back pain without sciatica M54.5 ; Nausea and vomiting, unspecified intactability, vomiting of unspecified type R11.2 ; Pain in right foot M79.671 and Pain of left foot M79.672 [place] [address] [address] Dec, Urinary tract infection, sit e not specified N39.0 [place] [address] [place] [id number] [address] [place] [address] Dec, [place] [address] [address] 07 Nov, 2015 [place] [address] [address] Nov, Dysuria R30.0 [place] [address] [address] Nov, Dysuria R30.0 and Acute cyst itis with hematuria N30.01 [place] [address] [address] October, Nausea R11.0 [place] [address] [address] October, Thyroid nodule E04.1 ; Carpa l tunnel syndrome, left upper limb G56.02 ; Carpal tunnel syndrome, right upper limb G56.01 and Constipation, unspecified constipation type K59.00 [place] [address] [address] October, [place] [address] [address] October, Thyroid nodule E04.1 [place] [address] [address] October, Cold thyroid nodule E04.1 [place] [address] [address] October, [place] [address] [address] Sep, Thyroid nodule E04.1 [place] [address] [address] Sep, Thyroid nodule E04.1 [place] [address] [address] Sep, Thyroid nodule E04.1 ; Hyper tension I10 ; Esophageal reflux K21.9 and Hyperlipidemia, unspecified E78.5 [place] [address] [place] [id number] [address] [place] [address] 14 Aug, 2015 Other chronic pain G89.29 ; Sinusitis J32.9 and Hypertension I10 [facility] [address] [place] [id number] [address] [place] [address] 29 Jul, 2015 [facility] [address] [place] [id number] [place] [address] 15 Jul, 2015 [facility] [address] [address] 10 Jul, 2015 Insomnia G47.00 and Arthralg ia M25.50 [place] [address] [address] 10 Jul, 2015 Depressive disorder F32.9 an d Anxiety disorder, unspecified F41.9 [place] [address] [address] May, Right-sided low back pain wi thout sciatica M54.5 and Depression F32.9 [place] [address] [address] Apr, Hematuria R31.9 [place] [address] [place] [id number] [place] [address] Mar, Other chronic pain G89.29 [place] [address] [place] [id number] [place] [address] Mar, Other chronic pain G89.29 [place] [address] [place] [id number] [address] [place] [address] Feb, [place] [address] [address] 22 Feb, 2015 Other chronic pain 338.29 ; Dysuria 788.1 ; UTI (urinary tract infection) 599.0 ; Insomnia 780.52 ; Hot flashes 627.2 and Hypertension 401.9 [place] [address] [place] [id number] [address] [place] [address] Feb, Dysuria 788.1 [facility] [address] [facility] [id number] [address] [place] [address] Feb, [facility] [address] [facility] [id number] [address] [place] [address] Jan, [facility] [address] [facility] [id number] [address] [place] [address] Jan, [facility] [address] [facility] [id number] [address] [place] [address] Jan, Fibromyalgia 729.1 ; Hyperte nsion 401.9 ; Dysthymia 300.4 and Hot flashes 627.2 [facility] [address] [id number] [address] [place] [address] Dec, [facility] [address] [facility] [id number] [address] [place] [address] Dec, [facility] [address] [facility] [id number] [address] [place] [address] Dec, [facility] [address] [facility] [id number] [address] [place] [address] Nov, Other chronic pain 338.29 [facility] [address] [facility] [id number] [address] [place] [address] October, [facility] [address] [facility] [id number] [address] [place] [address] October, [facility] [address] [facility] [id number] [address] [place] [address] Sep, [facility] [address] [facility] [id number] [address] [place] [address] Sep, [facility] [address] [facility] [id number] [address] [place] [address] Aug, [facility] [address] [facility] [id number] [address] [place] [address] Aug, [facility] [address] [id number] [address] [place] [address], [place] [address] Aug, [facility] [address] [id number] [address] [place] [address], [place] [address] Aug, [facility] [address] [id number] [address] [place] [address], [place] [address] Aug, [facility] [address] [id number] [address] [place] [address], [place] [address] Aug, [facility] [address] [id number] [address] [place] [address], [place] [address] Aug, [facility] [address] [id number] [address] [place] [address], [place] [address] Aug, [facility] [address] [id number] [address] [place] [address], [place] [address] Aug, [facility] [address] [id number] [address] [place] [address], [place] [address] Aug, [facility] [address] [id number] [address] [place] [address], [place] [address] Aug, [facility] [address] [id number] [address] [place] [address], [place] [address] Aug, [facility] [address] [id number] [address] [place] [address], [place] [address] Aug, [facility] [address] [id number] [address] [place] [address], [place] [address] Aug, [facility] [address] [id number] [address] [place] [address], [place] [address] Jul, [facility] [address] [id number] [address] [place] [address], [place] [address] Jul, [facility] [address] [id number] [address] [place] [address], [place] [address] Jul, [facility] [address] [id number] [address] [place] [address] [place] [address] Jul, [facility] [address] [id number] [address] [place] [address], [place] [address] Jul, [facility] [address] [id number] [address] [place] [address], [place] [address] Jul, [facility] [address] [id number] [address] [place] [address], [place] [address] Jun, [facility] [address] [id number] [address] [place] [address], [place] [address] Jun, [facility] [address] [id number] [address] [place] [address], [place] [address] Jun, [facility] [address] [id number] [address] [place] [address], [place] [address] Jun, [facility] [address] [id number] [address] [place] [address], [place] [address] May, [facility] [address] [id number] [address] [place] [address], [place] [address] May, [facility] [address] [id number] [address] [place] [address], [place] [address] May, [facility] [address] [id number] [address] [place] [address], [place] [address] May, [facility] [address] [id number] [address] [place] [address], [place] [address] May, [facility] [address] [id number] [address] [place] [address], [place] [address] May, [facility] [address] [id number] [address] [place] [address], [place] [address] May, [facility] [address] [id number] [address] [place] [address], [place] [address] May, [facility] [address] [id number] [address] [place] [address], [place] [address] May, [facility] [address] [id number] [address] [place] [address], [place] [address] May, [facility] [address] [id number] [address] [place] [address], [place] [address] Apr, [facility] [address] [id number] [address] [place] [address], [place] [address] Apr, [facility] [address] [id number] [address] [place] [address], [place] [address] Apr, [facility] [address] [id number] [address] [place] [address], [place] [address] Apr, [facility] [address] [id number] [address] [place] [address], [place] [address] Apr, [facility] [address] [id number] [address] [place] [address], [place] [address] Apr, [facility] [address] [id number] [address] [place] [address], [place] [address] Apr, [facility] [address] [id number] [address] [place] [address], [place] [address] Apr, [facility] [address] [id number] [address] [place] [address], [place] [address] Apr, [facility] [address] [id number] [address] [place] [address], [place] [address] Mar, [facility] [address] [id number] [address] [place] [address], [place] [address] Mar, [facility] [address] [id number] [address] [place] [address], [place] [address] Mar, [facility] [address] [id number] [address] [place] [address], [place] [address] Mar, [facility] [address] [id number] [address] [place] [address], [place] [address] Mar, [facility] [address] [id number] [address] [place] [address], [place] [address] 08 Mar, 2014 [facility] [address] [id number] [address] [place] [address], [place] [address] 08 Mar, 2014 [facility] [address] [id number] [address] [place] [address], [place] [address] 08 Mar, 2014 [facility] [address] [id number] [address] [place] [address], [place] [address] 30 Sep, 2013 [facility] [address] [id number] [address] [place] [address], [place] [address] 30 Sep, 2013 [facility] [address] [id number] [address] [place] [address], [place] [address] 24 Feb, 2013 [facility] [address] [id number] [address] [place] [address], [place] [address] 24 Feb, 2013 [facility] [address] [id number] [address] [place] [address], [place] [address] 22 Feb, 2013 [facility] [address] [id number] [address] [place] [address], [place] [address] 22 Feb, 2013 [facility] [address] [id number] [address] [place] [address], [place] [address] 10 Feb, 2013 [facility] [address] [id number] [address] [place] [address], [place] [address] 10 Feb, 2013 [facility] [address] [id number] [address] [place] [address], [place] [address] 03 Feb, 2013 [facility] [address] [id number] [address] [place] [address], [place] [address] 03 Sep, 2013 [facility] [address] [id number] [address] [place] [address], [place] [address] 03 Sep, 2013 [facility] [address] [id number] [address] [place] [address], [place] [address] 03 Sep, 2013 [facility] [address] [id number] [address] [place] [address], [place] [address] 03 Sep, 2013 [facility] [address] [id number] [address] [place] [address], [place] [address] Feb, [facility] [address] [id number] [address] [place] [address], [place] [address] Jan, [facility] [address] [id number] [address] [place] [address], [place] [address] Jan, [facility] [address] [id number] [address] [place] [address], [place] [address] Dec, [facility] [address] [id number] [address] [place] [address], [place] [address] Dec, [facility] [address] [id number] [address] [place] [address], [place] [address] Dec, [facility] [address] [id number] [address] [place] [address], [place] [address] Dec, [facility] [address] [id number] [address] [place] [address], [place] [id number] Dec, [facility] [address] [id number] [address] [place] [address], [place] [address] Dec, [facility] [address] [id number] [address] [place] [address], [place] [address] Dec, [facility] [address] [id number] [address] [place] [address], [place] [address] Dec, [facility] [address] [id number] [address] [place] [address], [place] [address] Dec, [facility] [facility] [address] [id number] [address] [place] [address], [place] [address] Dec, [facility] [address] [id number] [address] [place] [address], [place] [address] Dec, [facility] [address] [id number] [address] [place] [address], [place] [address] Dec, [facility] [address] [id number] [address] [place] [address], [place] [address] Dec, [facility] [address] [id number] [address] [place] [address], [place] [address] Dec, 2013 [facility] [address] [id number] [address] [place] [address], [place] [address] Dec, 2013 [facility] [address] [id number] [address] [place] [address], [place] [address] Dec, 2013 [facility] [address] [id number] [address] [place] [address], [place] [address] Dec, [facility] [address] [id number] [address] [place] [address], [place] [address] Dec, [facility] [address] [id number] [address] [place] [address], [place] [address] Dec, [facility] [address] [id number] [address] [place] [address], [place] [address] Nov, [facility] [address] [id number] [address] [place] [address], [place] [address] Nov, [facility] [address] [id number] [address] [place] [address], [place] [address] Nov, [facility] [address] [id number] [address] [place] [address], [place] [address] Nov, [facility] [address] [id number] [address] [place] [address], [place] [address] Nov, [facility] [address] [id number] [address] [place] [address], [place] [address] Nov, [facility] [address] [id number] [address] [place] [address], [place] [address] Nov, [facility] [address] [id number] [address] [place] [address], [place] [address] Nov, [facility] [address] [id number] [address] [place] [address], [place] [address] Nov, [facility] [address] [id number] [address] [place] [address], [place] [address] October, [facility] [address] [id number] [address] [place] [address], [place] [address] October, [facility] [address] [id number] [address] [place] [address], [place] [address] October, [facility] [address] [id number] [address] [place] [address], [place] [address] October, [facility] [address] [id number] [address] [place] [address], [place] [address] October, [facility] [address] [id number] [address] [place] [address], [place] [address] October, [facility] [address] [id number] [address] [place] [address], [place] [address] October, [facility] [address] [id number] [address] [place] [address], [place] [address] October, [facility] [address] [id number] [address] [place] [address], [place] [address] Sep, [facility] [address] [id number] [address] [place] [address], [place] [address] Sep, [facility] [address] [id number] [address] [place] [address], [place] [address] Sep, [facility] [address] [id number] [address] [place] [address], [place] [address] Sep, [facility] [address] [id number] [address] [place] [address], [place] [address] Sep, [facility] [address] [id number] [address] [place] [address], [place] [address] Sep, [facility] [address] [id number] [address] [place] [address], [place] [address] Sep, [facility] [address] [id number] [address] [place] [address], [place] [address] Aug, [facility] [address] [id number] [address] [place] [address], [place] [address] Aug, [facility] [address] [id number] [address] [place] [address], [place] [address] Aug, [facility] [address] [id number] [address] [place] [address], [place] [address] Aug, [facility] [address] [id number] [address] [place] [address], [place] [address] Aug, [facility] [address] [id number] [address] [place] [address], [place] [address] Aug, [facility] [address] [id number] [address] [place] [address], [place] [address] Jul, [facility] [address] [id number] [address] [place] [address], [place] [address] Jul, [facility] [address] [id number] [address] [place] [address], [place] [address] Jul, [facility] [address] [id number] [address] [place] [address], [place] [address] Jul, [facility] [address] [id number] [address] [place] [address], [place] [address] Jul, [facility] [address] [id number] [address] [place] [address], [place] [address] Jul, [facility] [address] [id number] [address] [place] [address], [place] [address] Jun, [facility] [address] [id number] [address] [place] [address], [place] [address] Jun, [facility] [address] [id number] [address] [place] [address], [place] [address] Jun, [facility] [address] [id number] [address] [place] [address], [place] [address] Jun, [facility] [address] [id number] [address] [place] [address], [place] [address] Jun, [facility] [address] [id number] [address] [place] [address], [place] [address] Jun, [facility] [address] [id number] [address] [place] [address], [place] [address] Jun, [facility] [address] [id number] [address] [place] [address], [place] [address] Jun, [facility] [address] [id number] [address] [place] [address], [place] [address] Jun, [facility] [address] [id number] [address] [place] [address], [place] [address] Jun, [facility] [address] [id number] [address] [place] [address], [place] [address] Jun, [facility] [address] [id number] [address] [place] [address], [place] [address] Jun, [facility] [address] [id number] [address] [place] [address], [place] [address] Jun, [facility] [address] [id number] [address] [place] [address], [place] [address] May, [facility] [address] [id number] [address] [place] [address], [place] [address] May, [facility] [address] [id number] [address] [place] [address], [place] [address] 30 May, 2013 [facility] [address] [id number] [address] [place] [address], [place] [address] 30 May, 2013 [facility] [address] [id number] [address] [place] [address], [place] [address] May, [facility] [address] [id number] [address] [place] [address], [place] [address] 14 May, 2013 [facility] [address] [id number] [address] [place] [address], [place] [address] May, [facility] [address] [id number] [address] [place] [address], [place] [address] 12 May, 2013 [facility] [address] [id number] [address] [place] [address], [place] [address] May, [facility] [address] [id number] [address] [place] [address], [place] [address] May, [facility] [address] [id number] [address] [place] [address], [place] [address] May, [facility] [address] [id number] [address] [place] [address], [place] [address] May, [facility] [address] [id number] [address] [place] [address], [place] [address] May, [facility] [address] [id number] [address] [place] [address], [place] [address] May, [facility] [address] [id number] [address] [place] [address], [place] [address] May, [facility] [address] [id number] [address] [place] [address], [place] [address] 08 May, 2013 [facility] [address] [id number] [address] [place] [address], [place] [address] May, [facility] [address] [id number] [address] [place] [address], [place] [address] May, [facility] [address] [id number] [address] [place] [address], [place] [address] May, [facility] [address] [id number] [address] [place] [address], [place] [address] May, [facility] [address] [id number] [address] [place] [address], [place] [address] May, [facility] [address] [id number] [address] [place] [address], [place] [address] Apr, [facility] [address] [id number] [address] [place] [address], [place] [address] Apr, [facility] [address] [id number] [address] [place] [address], [place] [address] Apr, [facility] [address] [id number] [address] [place] [address], [place] [address] Apr, [facility] [address] [id number] [address] [place] [address], [place] [address] Mar, [facility] [address] [id number] [address] [place] [address], [place] [address] 23 Feb, 2013 [facility] [address] [id number] [address] [place] [address], [place] [address] 16 Feb, 2013 [facility] [address] [id number] [address] [place] [address], [place] [address] 13 Feb, 2013 [facility] [address] [id number] [address] [place] [address], [place] [address] Feb, [facility] [address] [id number] [address] [place] [address], [place] [address] Feb, [facility] [address] [id number] [address] [place] [address], [place] [address] Feb, [facility] [address] [id number] [address] [place] [address], [place] [address] Jan, [facility] [address] [id number] [address] [place] [address], [place] [address] Jan, [facility] [address] [id number] [address] [place] [address], [place] [address] Jan, [facility] [address] [id number] [address] [place] [address], [place] [address] Dec, [facility] [address] [id number] [address] [place] [address], [place] [address] Dec, [facility] [address] [id number] [address] [place] [address], [place] [address] Dec, [facility] [address] [id number] [address] [place] [address] [place] [address] 15 Dec, 2012 [facility] [address] [id number] [address] [place] [address], [place] [address] Dec, [facility] [address] [id number] [address] [place] [address], [place] [address] Nov, [facility] [address] [id number] [address] [place] [address], [place] [address] Nov, [facility] [address] [id number] [address] [place] [address], [place] [address] Nov, [facility] [address] [id number] [address] [place] [address], [place] [address] Nov, [facility] [address] [id number] [address] [place] [address], [place] [address] Nov, [facility] [address] [id number] [address] [place] [address], [place] [address] 08 Nov, 2012 [facility] [address] [id number] [address] [place] [address], [place] [address] 07 Nov, 2012 [facility] [address] [id number] [address] [place] [address], [place] [address] 06 Nov, 2012 [facility] [address] [id number] [address] [place] [address], [place] [address] 05 Nov, 2012 [facility] [address] [id number] [address] [place] [address], [place] [address] Nov, [facility] [address] [id number] [address] [place] [address], [place] [address] October, [facility] [address] [id number] [address] [place] [address], [place] [address] October, [facility] [address] [id number] [address] [place] [address], [place] [address] Sep, [facility] [address] [id number] [address] [place] [address], [place] [address] Sep, [facility] [address] [id number] [address] [place] [address], [place] [address] 08 Sep, 2012 [facility] [address] [id number] [address] [place] [address], [place] [address] Sep, [facility] [address] [id number] [address] [place] [address], [place] [address] Sep, [facility] [address] [id number] [address] [place] [address], [place] [address] Aug, [facility] [address] [id number] [address] [place] [address], [place] [address] Aug, [facility] [address] [id number] [address] [place] [address], [place] [address] Jul, [facility] [address] [id number] [address] [place] [address], [place] [address] Jul, [facility] [address] [id number] [address] [place] [address], [place] [address] Jun, [facility] [address] [id number] [address] [place] [address], [place] [address] Jun, [facility] [address] [id number] [address] [place] [address], [place] [address] May, [facility] [address] [id number] [address] [place] [address], [place] [address] May, [facility] [address] [id number] [address] [place] [address], [place] [address] May, [facility] [address] [id number] [address] [place] [address], [place] [address] May, [facility] [address] [id number] [address] [place] [address], [place] [address] Apr, [facility] [address] [id number] [address] [place] [address], [place] [address] Apr, [facility] [address] [id number] [address] [place] [address], [place] [address] Apr, [facility] [address] [id number] [address] [place] [address], [place] [address] Apr, [facility] [address] [id number] [address] [place] [address], [place] [address] Apr, [facility] [address] [id number] [address] [place] [address], [place] [address] Apr, [facility] [address] [id number] [address] [place] [address], [place] [address] 14 Apr, 2012 [facility] [address] [id number] [address] [place] [address], [place] [address] Apr, [facility] [address] [id number] [address] [place] [address], [place] [address] Apr, [facility] [address] [id number] [address] [place] [address], [place] [address] 15 Mar, 2012 [facility] [address] [id number] [address] [place] [address], [place] [address] Mar, [facility] [address] [id number] [address] [place] [address], [place] [address] Feb, [facility] [address] [id number] [address] [place] [address], [place] [address] Jan, [facility] [address] [id number] [address] [place] [address], [place] [address] Jan, [facility] [address] [id number] [address] [place] [address], [place] [address] Dec, [facility] [address] [id number] [address] [place] [address], [place] [address] Nov, [facility] [address] [id number] [address] [place] [address], [place] [address] Nov, [facility] [address] [id number] [address] [place] [address], [place] [address] October, [facility] [address] [id number] [address] [place] [address], [place] [address] October, [facility] [address] [id number] [address] [place] [address], [place] [address] Sep, [facility] [address] [id number] [address] [place] [address], [place] [address] Sep, [facility] [address] [id number] [address] [place] [address], [place] [address] May, [facility] [address] [id number] [address] [place] [address], [place] [address] Apr, [facility] [address] [id number] [address] [place] [address], [place] [address] Apr, [facility] [address] [id number] [address] [place] [address], [place] [address] Apr, [facility] [address] [id number] [address] [place] [address], [place] [address] Apr, [facility] [address] [id number] [address] [place] [address], [place] [address] Apr, [facility] [address] [id number] [address] [place] [address], [place] [address] Apr, [facility] [address] [id number] [address] [place] [address], [place] [address] Apr, [facility] [address] [id number] [address] [place] [address], [place] [address] Apr, [facility] [address] [id number] [address] [place] [address], [place] [address] Mar, [facility] [address] [id number] [address] [place] [address], [place] [address] Mar, [facility] [address] [id number] [address] [place] [address], [place] [address] Mar, [facility] [address] [id number] [address] [place] [address], [place] [address] Mar, [facility] [address] [facility] [id number] [address] [address] Mar, [facility] [address] [facility] [id number] [address] [place] [address] Mar, IMMUNIZATIONS No Known Immunizations SOCIAL HISTORY Never Assessed REASON FOR VISIT PLAN OF CARE VITAL SIGNS Height 62 in 2013-05-09 Weight 245.3 lbs 2013-05-09 Temperature 98.6 degrees Fahrenheit 2013-05-09 Heart Rate 80 bpm 2013-05-09 Respiratory Rate 16 2013-05-09 Blood pressure systolic 128 mmHg 2013-05-09 Blood pressure diastolic 76 mmHg 2013-05-09 MEDICATIONS Unknown Medications RESULTS No Results PROCEDURES No Known procedures INSTRUCTIONS MEDICATIONS ADMINISTERED No Known Medications MEDICAL (GENERAL) HISTORY Type Description Date Medical History HTN Medical History Depression Medical History Arthritis Medical History COPD Surgical History Breast lump removed Surgical History Removal of cyst from ovary Surgical History cholecystectomy Surgical History Stomach surgeryx3 Surgical History tubal ligation Hospitalization History Mental floor at [facility]
--- OUTSIDE RECORDS SUMMARY | 2019-12-24 19:37 | XMS REPORT ---
Author Author Trey POLK Organization [facility] Address [address] [place] [address] Care Team Providers Care Power Plant Manager Name Role Phone GILMER POLKWIN Unavailable PROBLEMS Type Condition ICD9-CM Code [id number] Code Onset Dates Condition S tatus SNOMED Code Problem Unspecified epilepsy without mention of intractable ep ilepsy G40.909 Active 55247130 Problem Hypertension I10 Active 2037943 3 Problem Other chronic pain G89.29 Active 1 25075303 Problem Rheumatoid arthritis M06.9 Active 64136591 Problem Hyperlipidemia, unspecified E78.5 Ac tive 82442040 Problem Depressive disorder F32.9 Active 69477011 Problem Esophageal reflux K21.9 Active 23 2278796 Problem Carpal tunnel syndrome of left wrist G56.02 Active [id number] Problem Presbyopia H52.4 Active 50744526 Problem Cough R05 Active 91065793 Problem Nondependent 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 Ac tive 592255836 Problem Unspecified open-angle glaucoma, stage unspecified H40.10X0 Feb, Active 71767815 Problem Anxiety disorder, unspecified F41.9 Active 947859524 Problem Insomnia G47.00 Active 269680557 Problem Neuropathy G62.9 Active 878615851 Problem Thyroid nodule E04.1 Active 30272 5005 Problem Multinodular goiter E04.2 Active 537468864 Problem Chronic tension-type headache, intractable G44.221 Active 492002872 Problem Acquired hypothyroidism E03.9 Active 538262054 Problem Goiter E04.9 Active 4161265 Problem Chronic obstructive pulmonary disease, unspecified COPD ty pe J44.9 Active 13422752 Problem Reactive airway disease with out complication, unspecified asthma severity, unspecified whether persistent J45.909 Active 500773164012 Problem BMI 40.0-44.9, adult Z68.41 Active 033579134 Problem Essential hypertension I10 Active 73515999 Problem Right-sided low back pain without sciatica M54.5 Active 124314140 Problem Tension headache G44.209 Active 398 097436 Problem Depression F32.9 Active 83731440 Problem Arthralgia M25.50 Active 83464036 Problem Urge incontinence of urine N39.41 Act chen 65375294 Problem Abnormal laboratory test R89.9 Activ e 003140349 Problem COPD with exacerbation J44.1 Active 046298622 Problem Seasonal allergic rhinitis due to pollen J30.1 Active 03355508 ALLERGIES No Information ENCOUNTERS Encounter Location Date Diagnosis [facility] [address] [facility] [id number] [address] [place] [address] [id number] October, [facility] [address] [address] October, Thyroid nodule E04.1 and Mul tinodular goiter E04.2 [facility] [address] [place] [id number] [place] [address] Sep, Thyroid nodule E04.1 [facility] [address] [place] [id number] [place] [address] Sep, [facility] [address] [place] [id number] [place] [address] Sep, Counseled by nurse Z71.9 and Thyroid nodule E04.1 [facility] [address] [place] [id number] [address] [place] [address] Sep, Acquired hypothyroidism E03. 9 ; Tension headache G44.209 ; Essential hypertension I10 ; Multinodular goiter E04.2 and BMI 40.0-44.9, adult Z68.41 [facility] [address] [place] [id number] [address] [place] [address] Aug, Pelvic pain R10.2 ; Other sp ecified bacterial agents as the cause of diseases classified elsewhere B96.89 and Acute vaginitis N76.0 [facility] [address] [place] [id number] [address] [place] [address] Apr, Bronchitis J40 [facility] [address] [address] Apr, Acute gastritis without hemo rrhage, unspecified gastritis type K29.00 [place] [address] [address] Mar, [place] [address] [address] Feb, [place] [address] [address] Feb, Mass of right side of neck R 22.1 and Multinodular goiter E04.2 [facility] [place] [address] [address] Jan, Bronchitis J40 [place] [address] [address] October, Acquired hypothyroidism E03. 9 [place] [address] [address] October, Acute gastritis without hemo rrhage, unspecified gastritis type K29.00 ; Epigastric pain R10.13 ; Essential hypertension I10 ; Screening for colon cancer Z12.11 and BMI 40.0-44.9, adult Z68.41 [place] [address] [address] October, [facility] [place] [address] [address] October, Chest pain R07.9 and Morbid obesity E66.01 [facility] [place] [address] [address] Sep, Generalized abdominal pain R 10.84 ; Morbid obesity E66.01 ; Non-intractable vomiting with nausea, unspecified vomiting type R11.2 and Seasonal allergic rhinitis due to pollen J30.1 [facility] [place] [address] [address] Jul, COPD with exacerbation J44.1 ; Viral upper respiratory tract infection J06.9 and Morbid obesity E66.01 [facility] [address] [address] Jun, Viral upper respiratory trac t infection J06.9 [facility] [address] [place] [id number] [place] [address] Apr, Abnormal laboratory test R89 .9 [facility] [address] [place] [address] Apr, Abnormal laboratory test R89 .9 [place] [address] [place] [id number] [place] [address] Apr, Abnormal laboratory test R89 .9 [place] [address] [place] [id number] [place] [address] Apr, [place] [address] [address] Apr, [place] [address] [address] Apr, Nonintractable episodic head ache, unspecified headache type R51 ; Urge incontinence of urine N39.41 ; BMI 40.0-44.9, adult Z68.41 ; Myalgia M79.10 and Acute cystitis without hematuria N30.00 [place] [address] [address] Mar, Nasal congestion R09.81 ; Lo w back pain M54.5 ; Reactive airway disease without complication, unspecified asthma severity, unspecified whether persistent J45.909 ; Other chronic pain G89.29 ; Acute cystitis with hematuria N30.01 and BMI 40.0-44.9, adult Z68.41 [facility] [address] [place] [id number] [place] [address] Mar, Acute cystitis with hematuri a N30.01 [facility] [address] [place] [id number] [place] [address] Mar, BMI 40.0-44.9, adult Z68.41 ; Acute cystitis with hematuria N30.01 ; Acute bilateral low back pain without sciatica M54.5 and Nausea R11.0 [place] [address] [address] Mar, Hypertension I10 ; Acquired hypothyroidism E03.9 ; Esophageal reflux K21.9 ; Chronic obstructive pulmonary disease, unspecified COPD type J44.9 and BMI 40.0-44.9, adult Z68.41 [place] [address] [address] Mar, Hypertension I10 [address] [address] Nov, Hyperlipidemia, unspecified E78.[address] [address] October, Chest pain, unspecified type R07.9 and Acquired hypothyroidism E03.9 [place] [address] [address] October, Chest pain, unspecified type R07.9 ; Family history of coronary artery disease Z82.49 ; Carpal tunnel syndrome of left wrist G56.02 ; Hypertension I10 ; Esophageal reflux K21.9 ; Arthralgia M25.50 ; Acquired hypothyroidism E03.9 ; Cough R05 ; Nausea R11.0 ; Weight gain R63.5 and BMI 45.0-49.9, adult Z68.42 [place] [address] [address] Jun, Acquired hypothyroidism E03. 9 and Cough R05 [address] [address] May, [address] [address] Feb, Tarsal tunnel syndrome of timi th lower extremities G57.53 and Neuropathy G62.9 [place] [address] [facility] [id number] [address] [place] [address] Dec, Pleuritis R09.1 [place] [address] [facility] [id number] [address] [place] [address] Nov, [place] [address] [facility] [id number] [address] [place] [address] October, Arthralgia, unspecified join t M25.50 and Allergy, initial encounter T78.40XA [place] [address] [facility] [id number] [address] [place] [address] October, [place] [address] [place] [id number] [place] [address] October, Acute recurrent maxillary si nusitis J01.01 and Arthralgia M25.50 [place] [address] [place] [id number] [place] [address] Sep, Pharyngitis due to other org anism J02.8 [place] [address] [facility] [id number] [address] [place] [address] Aug, Acute nasopharyngitis J00 [place] [address] [place] [id number] [place] [address] Aug, Multinodular goiter E04.2 [place] [address] [place] [id number] [place] [address] Aug, Thyroid nodule E04.1 [place] [address] [place] [id number] [place] [address] Jul, Tarsal tunnel syndrome of timi th lower extremities G57.53 [place] [address] [facility] [id number] [address] [place] [address] Jun, Pneumonia due to infectious organism, unspecified laterality, unspecified part of lung J18.9 [place] [address] [place] [id number] [place] [address] Jun, Bronchospasm with bronchitis , acute J20.9 [place] [address] [place] [id number] [place] [address] May, Acute non-recurrent frontal sinusitis J01.10 [place] [address] [place] [id number] [place] [address] May, Flat foot [pes planus] (acqu ired), left foot M21.42 ; Flat foot [pes planus] (acquired), right foot M21.41 and Neuropathy G62.9 [place] [address] [place] [id number] [place] [address] Apr, Chronic tension-type headach e, intractable G44.221 ; Right lower quadrant abdominal pain R10.31 ; Cervicalgia M54.2 ; Acute gastritis without hemorrhage, unspecified gastritis type K29.00 and Hypertension I10 [place] [address] [place] [id number] [place] [address] Mar, Depression F32.9 and Anxiety disorder, unspecified F41.9 [place] [address] [address] Feb, Depressive disorder F32.9 an d Anxiety disorder, unspecified F41.9 [place] [address] [place] [id number] [place] [address] Jan, Dysuria R30.0 ; Lower abdomi nal pain R10.30 ; Acute bilateral low back pain without sciatica M54.5 ; Nausea and vomiting, unspecified intactability, vomiting of unspecified type R11.2 ; Pain in right foot M79.671 and Pain of left foot M79.672 [place] [address] [place] [id number] [place] [address] Dec, Urinary tract infection, sit e not specified N39.0 [place] [address] [place] [id number] [place] [address] Dec, [place] [address] [place] [address] [place] [address] 07 Nov, 2015 [facility] [address] [address] Nov, Dysuria R30.0 [facility] [address] [address] Nov, Dysuria R30.0 and Acute cyst itis with hematuria N30.01 [facility] [address] [address] October, Nausea R11.0 [place] [address] [address] October, Thyroid nodule E04.1 ; Carpa l tunnel syndrome, left upper limb G56.02 ; Carpal tunnel syndrome, right upper limb G56.01 and Constipation, unspecified constipation type K59.00 [place] [address] [address] October, [place] [address] [address] October, Thyroid nodule E04.1 [place] [address] [address] October, Cold thyroid nodule E04.1 [place] [address] [address] October, [place] [address] [address] Sep, Thyroid nodule E04.1 [place] [address] [address] Sep, Thyroid nodule E04.1 [place] [address] [address] Sep, Thyroid nodule E04.1 ; Hyper tension I10 ; Esophageal reflux K21.9 and Hyperlipidemia, unspecified E78.5 [place] [address] [facility] [id number] [address] [place] [address] 14 Aug, 2015 Other chronic pain G89.29 ; Sinusitis J32.9 and Hypertension I10 [facility] [address] [facility] [id number] [address] [place] [address] 29 Jul, 2015 [facility] [address] [place] [id number] [place] [address] 15 Jul, 2015 [facility] [address] [address] 10 Jul, 2015 Insomnia G47.00 and Arthralg ia M25.50 [place] [address] [address] 10 Jul, 2015 Depressive disorder F32.9 an d Anxiety disorder, unspecified F41.9 [place] [address] [address] May, Right-sided low back pain wi thout sciatica M54.5 and Depression F32.9 [place] [address] [place] [id number] [place] [address] Apr, Hematuria R31.9 [place] [address] [place] [id number] [place] [address] Mar, Other chronic pain G89.29 [place] [address] [place] [id number] [place] [address] Mar, Other chronic pain G89.29 [place] [address] [place] [id number] [place] [address] Feb, [place] [address] [address] Feb, Other chronic pain 338.29 ; Dysuria 788.1 ; UTI (urinary tract infection) 599.0 ; Insomnia 780.52 ; Hot flashes 627.2 and Hypertension 401.9 [place] [address] [place] [id number] [place] [address] Feb, Dysuria 788.1 [facility] [address] [facility] [id number] [address] [place] [address] Feb, [facility] [address] [facility] [id number] [address] [place] [address] Jan, [facility] [address] [facility] [id number] [address] [place] [address] Jan, [facility] [address] [facility] [id number] [address] [place] [address] Jan, Fibromyalgia 729.1 ; Hyperte nsion 401.9 ; Dysthymia 300.4 and Hot flashes 627.2 [facility] [address] [facility] [id number] [address] [place] [address] Dec, [facility] [address] [place] [id number] [place] [address] Dec, [facility] [address] [facility] [id number] [address] [place] [address] Dec, [facility] [address] [facility] [id number] [address] [place] [address] Nov, Other chronic pain 338.29 [facility] [address] [facility] [id number] [address] [place] [address] October, [facility] [address] [facility] [id number] [address] [place] [address] October, [facility] [address] [facility] [id number] [address] [place] [address] Sep, [facility] [address] [facility] [id number] [address] [place] [address] Sep, [facility] [address] [facility] [id number] [address] [place] [address] Aug, [facility] [address] [facility] [id number] [address] [place] [address] Aug, [facility] [address] [id number] [address] [place] [address], [place] [address] Aug, [facility] [place] [facility] [address] [id number] [address] [place] [address], [place] [address] Aug, [facility] [address] [id number] [address] [place] [address], [place] [address] Aug, [facility] [place] [facility] [address] [id number] [address] [place] [address], [place] [address] Aug, [facility] [address] [id number] [address] [place] [address], [place] [address] Aug, [facility] [place] [facility] [address] [id number] [address] [place] [address], [place] [address] Aug, [facility] [address] [id number] [address] [place] [address], [place] [address] Aug, [facility] [address] [id number] [address] [place] [address], [place] [address] Aug, [facility] [address] [id number] [address] [place] [address], [place] [address] Aug, [facility] [address] [id number] [address] [place] [address], [place] [address] Aug, [facility] [place] [facility] [address] [id number] [address] [place] [address], [place] [address] Aug, [facility] [place] [facility] [address] [id number] [address] [place] [address], [place] [address] Aug, [facility] [place] [facility] [address] [id number] [address] [place] [address], [place] [address] Jul, [facility] [place] [facility] [address] [id number] [address] [place] [address], [place] [address] Jul, [facility] [place] [facility] [address] [id number] [address] [place] [address], [place] [address] Jul, [facility] [place] [facility] [address] [id number] [address] [place] [address], [place] [address] Jul, [facility] [address] [id number] [address] [place] [address], [place] [address] Jul, [facility] [address] [id number] [address] [place] [address], [place] [address] Jul, [facility] [address] [id number] [address] [place] [address], [place] [address] Jun, [facility] [address] [id number] [address] [place] [address], [place] [address] Jun, [facility] [address] [id number] [address] [place] [address], [place] [address] Jun, [facility] [address] [id number] [address] [place] [address], [place] [address] Jun, [facility] [address] [id number] [address] [place] [address], [place] [address] May, [facility] [address] [id number] [address] [place] [address], [place] [address] May, [facility] [address] [id number] [address] [place] [address], [place] [address] May, [facility] [address] [id number] [address] [place] [address], [place] [address] May, [facility] [address] [id number] [address] [place] [address], [place] [address] May, [facility] [address] [id number] [address] [place] [address], [place] [address] May, [facility] [address] [id number] [address] [place] [address], [place] [address] May, [facility] [address] [id number] [address] [place] [address], [place] [address] May, [facility] [address] [id number] [address] [place] [address], [place] [address] May, [facility] [address] [id number] [address] [place] [address], [place] [address] May, [facility] [place] [facility] [address] [id number] [address] [place] [address], [place] [address] Apr, [facility] [place] [facility] [address] [id number] [address] [place] [address], [place] [address] Apr, [facility] [place] [facility] [address] [id number] [address] [place] [address], [place] [address] Apr, [facility] [place] [facility] [address] [id number] [address] [place] [address], [place] [address] Apr, [facility] [place] [facility] [address] [id number] [address] [place] [address], [place] [address] Apr, [facility] [place] [facility] [address] [id number] [address] [place] [address], [place] [address] Apr, [facility] [place] [facility] [address] [id number] [address] [place] [address], [place] [address] Apr, [facility] [place] [facility] [address] [id number] [address] [place] [address], [place] [address] Apr, [facility] [place] [facility] [address] [id number] [address] [place] [address], [place] [address] Apr, [facility] [place] [facility] [address] [id number] [address] [place] [address] Mar, [facility] [place] [facility] [address] [id number] [address] [place] [address] Mar, [facility] [place] [facility] [address] [id number] [address] [place] [address], [place] [address] Mar, [facility] [place] [facility] [address] [id number] [address] [place] [address], [place] [address] Mar, [facility] [place] [facility] [address] [id number] [address] [place] [address] Mar, [facility] [place] [facility] [address] [id number] [address] [place] [address] 08 Mar, 2014 [facility] [address] [id number] [address] [place] [address], [place] [address] 08 Mar, 2014 [facility] [place] [facility] [address] [id number] [address] [place] [address], [place] [address] 08 Mar, 2014 [facility] [address] [id number] [address] [place] [address], [place] [address] 30 Feb, 2013 [facility] [place] [facility] [address] [id number] [address] [place] [address], [place] [address] 30 Feb, 2013 [facility] [address] [id number] [address] [place] [address], [place] [address] 24 Feb, 2013 [facility] [address] [id number] [address] [place] [address], [place] [address] 24 Feb, 2013 [facility] [address] [id number] [address] [place] [address], [place] [address] 22 Feb, 2013 [facility] [address] [id number] [address] [place] [address], [place] [address] 22 Feb, 2013 [facility] [address] [id number] [address] [place] [address], [place] [address] 10 Feb, 2013 [facility] [address] [id number] [address] [place] [address], [place] [address] 10 Feb, 2013 [facility] [address] [id number] [address] [place] [address], [place] [address] Sep, 2013 [facility] [address] [id number] [address] [place] [address], [place] [address] 03 Sep, 2013 [facility] [address] [id number] [address] [place] [address], [place] [address] 03 Sep, 2013 [facility] [address] [id number] [address] [place] [address], [place] [address] 03 Sep, 2013 [facility] [address] [id number] [address] [place] [address], [place] [address] 03 Sep, 2013 [facility] [address] [id number] [address] [place] [address], [place] [address] Feb, [facility] [address] [id number] [address] [place] [address], [place] [address] Jan, [facility] [address] [id number] [address] [place] [address], [place] [address] Jan, [facility] [address] [id number] [address] [place] [address], [place] [address] Dec, [facility] [address] [id number] [address] [place] [address], [place] [address] Dec, [facility] [address] [id number] [address] [place] [address], [place] [address] Dec, [facility] [address] [id number] [address] [place] [address], [place] [address] Dec, [facility] [address] [id number] [address] [place] [address], [place] [id number] Dec, [facility] [address] [id number] [address] [place] [address], [place] [address] Dec, [facility] [address] [id number] [address] [place] [address], [place] [address] Dec, [facility] [address] [id number] [address] [place] [address], [place] [address] Dec, [facility] [address] [id number] [address] [place] [address], [place] [address] Dec, [facility] [address] [id number] [address] [place] [address], [place] [address] Dec, [facility] [address] [id number] [address] [place] [address], [place] [address] Dec, [facility] [address] [id number] [address] [place] [address], [place] [address] Dec, [facility] [address] [id number] [address] [place] [address], [place] [address] Dec, [facility] [address] [id number] [facility] [place] [address] Dec, 2013 [facility] [address] [id number] [facility] [place] [address] Dec, 2013 [facility] [address] [id number] [address] [place] [address], [place] [address] Dec, 2013 [facility] [address] [id number] [address] [place] [address], [place] [address] Dec, 2013 [facility] [address] [id number] [address] [place] [address], [place] [address] Dec, [facility] [address] [id number] [address] [place] [address], [place] [address] Dec, [facility] [address] [id number] [address] [place] [address], [place] [address] Nov, [facility] [address] [id number] [address] [place] [address], [place] [address] Nov, [facility] [address] [id number] [address] [place] [address], [place] [address] Nov, [facility] [address] [id number] [address] [place] [address], [place] [address] Nov, [facility] [address] [id number] [address] [place] [address], [place] [address] Nov, [facility] [address] [id number] [address] [place] [address], [place] [address] Nov, [facility] [address] [id number] [address] [place] [address], [place] [address] Nov, [facility] [address] [id number] [address] [place] [address], [place] [address] Nov, [facility] [address] [id number] [address] [place] [address], [place] [address] Nov, [facility] [address] [id number] [address] [place] [address], [place] [address] October, [facility] [address] [id number] [address] [place] [address], [place] [address] October, [facility] [address] [id number] [address] [place] [address], [place] [address] October, [facility] [address] [id number] [address] [place] [address], [place] [address] October, [facility] [address] [id number] [address] [place] [address], [place] [address] October, [facility] [address] [id number] [address] [place] [address], [place] [address] October, [facility] [address] [id number] [address] [place] [address], [place] [address] October, [facility] [address] [id number] [address] [place] [address], [place] [address] October, [facility] [address] [id number] [address] [place] [address], [place] [address] Sep, [facility] [address] [id number] [address] [place] [address], [place] [address] Sep, [facility] [address] [id number] [address] [place] [address], [place] [address] Sep, [facility] [address] [id number] [address] [place] [address], [place] [address] Sep, [facility] [address] [id number] [address] [place] [address], [place] [address] Sep, [facility] [address] [id number] [address] [place] [address], [place] [address] Sep, [facility] [address] [id number] [address] [place] [address], [place] [address] Sep, [facility] [address] [id number] [address] [place] [address], [place] [address] Aug, [facility] [address] [id number] [address] [place] [address], [place] [address] Aug, [facility] [address] [id number] [address] [place] [address], [place] [address] Aug, [facility] [address] [id number] [address] [place] [address], [place] [address] Aug, [facility] [address] [id number] [address] [place] [address], [place] [address] Aug, [facility] [address] [id number] [address] [place] [address], [place] [address] Aug, [facility] [address] [id number] [address] [place] [address], [place] [address] Jul, [facility] [address] [id number] [address] [place] [address], [place] [address] Jul, [facility] [address] [id number] [address] [place] [address], [place] [address] Jul, [facility] [address] [id number] [address] [place] [address], [place] [address] Jul, [facility] [address] [id number] [address] [place] [address], [place] [address] Jul, [facility] [address] [id number] [address] [place] [address], [place] [address] Jul, [facility] [address] [id number] [address] [place] [address], [place] [address] Jun, [facility] [address] [id number] [address] [place] [address], [place] [address] Jun, [facility] [address] [id number] [address] [place] [address], [place] [address] Jun, [facility] [address] [id number] [address] [place] [address], [place] [address] Jun, [facility] [address] [id number] [address] [place] [address], [place] [address] Jun, [facility] [address] [id number] [address] [place] [address], [place] [address] Jun, [facility] [address] [id number] [address] [place] [address], [place] [address] Jun, [facility] [address] [id number] [address] [place] [address], [place] [address] Jun, [facility] [address] [id number] [address] [place] [address], [place] [address] Jun, [facility] [address] [id number] [address] [place] [address], [place] [address] Jun, [facility] [address] [id number] [address] [place] [address], [place] [address] Jun, [facility] [address] [id number] [address] [place] [address], [place] [address] Jun, [facility] [address] [id number] [address] [place] [address], [place] [address] Jun, [facility] [address] [id number] [address] [place] [address], [place] [address] May, [facility] [address] [id number] [address] [place] [address], [place] [address] May, [facility] [address] [id number] [address] [place] [address], [place] [address] 30 May, 2013 [facility] [address] [id number] [address] [place] [address], [place] [address] 30 May, 2013 [facility] [address] [id number] [address] [place] [address], [place] [address] May, [facility] [address] [id number] [address] [place] [address], [place] [address] 14 May, 2013 [facility] [address] [id number] [address] [place] [address], [place] [address] May, [facility] [address] [id number] [facility] [place] [address] 12 May, 2013 [facility] [address] [id number] [address] [place] [address], [place] [address] May, [facility] [address] [id number] [address] [place] [address], [place] [address] May, [facility] [address] [id number] [address] [place] [address], [place] [address] May, [facility] [address] [id number] [address] [place] [address], [place] [address] May, [facility] [address] [id number] [address] [place] [address], [place] [address] May, [facility] [address] [id number] [address] [place] [address], [place] [address] May, [facility] [address] [id number] [address] [place] [address], [place] [address] May, [facility] [address] [id number] [address] [place] [address], [place] [address] May, [facility] [address] [id number] [address] [place] [address], [place] [address] May, [facility] [address] [id number] [address] [place] [address], [place] [address] May, [facility] [address] [id number] [address] [place] [address], [place] [address] May, [facility] [address] [id number] [address] [place] [address], [place] [address] May, [facility] [address] [id number] [address] [place] [address], [place] [address] May, [facility] [address] [id number] [address] [place] [address], [place] [address] Apr, [facility] [address] [id number] [address] [place] [address], [place] [address] Apr, [facility] [address] [id number] [address] [place] [address], [place] [address] Apr, [facility] [address] [id number] [address] [place] [address], [place] [address] Apr, [facility] [address] [id number] [address] [place] [address], [place] [address] Mar, [facility] [address] [id number] [address] [place] [address], [place] [address] 23 Feb, 2013 [facility] [address] [id number] [address] [place] [address], [place] [address] 16 Feb, 2013 [facility] [address] [id number] [address] [place] [address], [place] [address] 13 Feb, 2013 [facility] [address] [id number] [address] [place] [address], [place] [address] Feb, [facility] [address] [id number] [address] [place] [address], [place] [address] Feb, [facility] [address] [id number] [address] [place] [address], [place] [address] Feb, [facility] [address] [id number] [address] [place] [address], [place] [address] Jan, [facility] [address] [id number] [address] [place] [address], [place] [address] Jan, [facility] [address] [id number] [address] [place] [address], [place] [address] Jan, [facility] [address] [id number] [address] [place] [address], [place] [address] Dec, [facility] [address] [id number] [address] [place] [address], [place] [address] Dec, [facility] [address] [id number] [address] [place] [address], [place] [address] Dec, [facility] [address] [id number] [address] [place] [address], [place] [address] 15 Dec, 2012 [facility] [address] [id number] [address] [place] [address], [place] [address] 13 Dec, 2012 [facility] [address] [id number] [address] [place] [address], [place] [address] Nov, [facility] [address] [id number] [address] [place] [address], [place] [address] Nov, [facility] [address] [id number] [address] [place] [address], [place] [address] Nov, [facility] [address] [id number] [address] [place] [address], [place] [address] Nov, [facility] [address] [id number] [address] [place] [address], [place] [address] Nov, [facility] [address] [id number] [address] [place] [address], [place] [address] 08 Nov, 2012 [facility] [address] [id number] [address] [place] [address], [place] [address] 07 Nov, 2012 [facility] [address] [id number] [address] [place] [address], [place] [address] 06 Nov, 2012 [facility] [address] [id number] [address] [place] [address], [place] [address] 05 Nov, 2012 [facility] [address] [id number] [address] [place] [address], [place] [address] Nov, [facility] [address] [id number] [address] [place] [address], [place] [address] October, [facility] [address] [id number] [address] [place] [address], [place] [address] October, [facility] [address] [id number] [address] [place] [address], [place] [address] Sep, [facility] [address] [id number] [address] [place] [address], [place] [address] 08 Sep, 2012 [facility] [address] [id number] [address] [place] [address], [place] [address] Sep, [facility] [address] [id number] [address] [place] [address], [place] [address] Sep, [facility] [address] [id number] [address] [place] [address], [place] [address] Sep, [facility] [address] [id number] [address] [place] [address], [place] [address] Aug, [facility] [address] [id number] [address] [place] [address], [place] [address] Aug, [facility] [address] [id number] [address] [place] [address], [place] [address] Jul, [facility] [address] [id number] [address] [place] [address], [place] [address] Jul, [facility] [address] [id number] [address] [place] [address], [place] [address] Jun, [facility] [address] [id number] [address] [place] [address], [place] [address] Jun, [facility] [address] [id number] [address] [place] [address], [place] [address] May, [facility] [address] [id number] [address] [place] [address], [place] [address] May, [facility] [address] [id number] [address] [place] [address], [place] [address] May, [facility] [address] [id number] [address] [place] [address], [place] [address] May, [facility] [address] [id number] [address] [place] [address], [place] [address] Apr, [facility] [address] [id number] [address] [place] [address], [place] [address] Apr, [facility] [address] [id number] [address] [place] [address], [place] [address] Apr, [facility] [address] [id number] [address] [place] [address], [place] [address] Apr, [facility] [address] [id number] [address] [place] [address], [place] [address] Apr, [facility] [address] [id number] [address] [place] [address], [place] [address] Apr, [facility] [address] [id number] [address] [place] [address], [place] [address] 14 Apr, 2012 [facility] [address] [id number] [address] [place] [address], [place] [address] Apr, [facility] [address] [id number] [address] [place] [address], [place] [address] Apr, [facility] [address] [id number] [address] [place] [address], [place] [address] 15 Mar, 2012 [facility] [address] [id number] [address] [place] [address], [place] [address] Mar, [facility] [address] [id number] [address] [place] [address], [place] [address] Feb, [facility] [address] [id number] [address] [place] [address], [place] [address] Jan, [facility] [address] [id number] [address] [place] [address], [place] [address] Jan, [facility] [address] [id number] [address] [place] [address], [place] [address] Dec, [facility] [address] [id number] [address] [place] [address], [place] [address] Nov, [facility] [address] [id number] [address] [place] [address], [place] [address] Nov, [facility] [address] [id number] [address] [place] [address], [place] [address] October, [facility] [address] [id number] [address] [place] [address], [place] [address] October, [facility] [address] [id number] [address] [place] [address], [place] [address] Sep, [facility] [address] [id number] [address] [place] [address], [place] [address] Sep, [facility] [address] [id number] [address] [place] [address], [place] [address] May, [facility] [address] [id number] [address] [place] [address], [place] [address] Apr, [facility] [address] [id number] [address] [place] [address], [place] [address] Apr, [facility] [address] [id number] [address] [place] [address], [place] [address] Apr, [facility] [address] [id number] [address] [place] [address], [place] [address] Apr, [facility] [address] [id number] [address] [place] [address], [place] [address] Apr, [facility] [address] [id number] [address] [place] [address], [place] [address] Apr, [facility] [address] [id number] [address] [place] [address], [place] [address] Apr, [facility] [address] [id number] [address] [place] [address], [place] [address] Apr, [facility] [address] [id number] [address] [place] [address], [place] [id number] Mar, [facility] [address] [id number] [address] [place] [address], [place] [id number] Mar, [facility] [address] [id number] [address] [place] [address], [place] [address] Mar, [facility] [address] [id number] [address] [place] [address], [place] [address] Mar, [facility] [address] [facility] [id number] [address] [place] [id number] Mar, [facility] [address] [facility] [id number] [address] [place] [id number] Mar, IMMUNIZATIONS No Known Immunizations SOCIAL HISTORY [...] tubal ligation Hospitalization History Mental floor at [facility]
--- OUTSIDE RECORDS SUMMARY | 2019-12-24 19:37 | XMS REPORT ---
Author Author Trey Christianson Organization [facility] Address [address] [place] [address] Care Team Providers Care Residential Construction Instructor Name Role Phone AIRAM Christianson Unavailable PROBLEMS Type Condition ICD9-CM Code PZM30-UV Code Onset Dates Condition S tatus SNOMED Code Problem Unspecified epilepsy without mention of intractable ep ilepsy G40.909 Active 98823156 Problem Hypertension I10 Active 4300198 3 Problem Other chronic pain G89.29 Active 1 18908850 Problem Rheumatoid arthritis M06.9 Active 37441417 Problem Hyperlipidemia, unspecified E78.5 Ac tive 30048992 Problem Depressive disorder F32.9 Active 73187717 Problem Esophageal reflux K21.9 Active 23 0324976 Problem Carpal tunnel syndrome of left wrist G56.02 Active [id number] Problem Presbyopia H52.4 Active 08607131 Problem Cough R05 Active 38624975 Problem Nondependent 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 Ac tive 714365083 Problem Unspecified open-angle glaucoma, stage unspecified H40.10X0 Feb, Active 63074731 Problem Anxiety disorder, unspecified F41.9 Active 051789573 Problem Insomnia G47.00 Active 802761372 Problem Neuropathy G62.9 Active 690302629 Problem Thyroid nodule E04.1 Active 39688 5005 Problem Multinodular goiter E04.2 Active 397836496 Problem Chronic tension-type headache, intractable G44.221 Active 899326617 Problem Acquired hypothyroidism E03.9 Active 584797862 Problem Goiter E04.9 Active 3227692 Problem Chronic obstructive pulmonary disease, unspecified COPD ty pe J44.9 Active 69456736 Problem Reactive airway disease with out complication, unspecified asthma severity, unspecified whether persistent J45.909 Active 913750179668 Problem BMI 40.0-44.9, adult Z68.41 Active 187477919 Problem Essential hypertension I10 Active 56698560 Problem Right-sided low back pain without sciatica M54.5 Active 832958294 Problem Tension headache G44.209 Active 398 188471 Problem Depression F32.9 Active 09646120 Problem Arthralgia M25.50 Active 92645662 Problem Urge incontinence of urine N39.41 Act chen 43117855 Problem Abnormal laboratory test R89.9 Activ e 734176155 Problem COPD with exacerbation J44.1 Active 128591456 Problem Seasonal allergic rhinitis due to pollen J30.1 Active 27265785 ALLERGIES No Information ENCOUNTERS Encounter Location Date Diagnosis [facility] [address] [facility] [id number] [address] [place] [id number] October, [place] [address] [address] October, Thyroid nodule E04.1 and Mul tinodular goiter E04.2 [place] [address] [address] Sep, Thyroid nodule E04.1 [place] [address] [address] Sep, [facility] [address] [address] Sep, Counseled by nurse Z71.9 and Thyroid nodule E04.1 [place] [address] [address] Sep, Acquired hypothyroidism E03. 9 ; Tension headache G44.209 ; Essential hypertension I10 ; Multinodular goiter E04.2 and BMI 40.0-44.9, adult Z68.41 [facility] [address] [place] [id number] [address] [place] [address] Aug, Pelvic pain R10.2 ; Other sp ecified bacterial agents as the cause of diseases classified elsewhere B96.89 and Acute vaginitis N76.0 [place] [address] [address] Apr, Bronchitis J40 [place] [address] [address] Apr, Acute gastritis without hemo rrhage, unspecified gastritis type K29.00 [place] [address] [address] Mar, [place] [address] [address] Feb, [place] [address] [address] Feb, Mass of right side of neck R 22.1 and Multinodular goiter E04.2 [facility] [address] [address] Jan, Bronchitis J40 [place] [address] [address] October, Acquired hypothyroidism E03. 9 [place] [address] [address] October, Acute gastritis without hemo rrhage, unspecified gastritis type K29.00 ; Epigastric pain R10.13 ; Essential hypertension I10 ; Screening for colon cancer Z12.11 and BMI 40.0-44.9, adult Z68.41 [place] [address] [address] October, [facility] [place] [address] [address] October, Chest pain R07.9 and Morbid obesity E66.01 [facility] [address] [address] Sep, Generalized abdominal pain R 10.84 ; Morbid obesity E66.01 ; Non-intractable vomiting with nausea, unspecified vomiting type R11.2 and Seasonal allergic rhinitis due to pollen J30.1 [facility] [place] [address] [address] Jul, COPD with exacerbation J44.1 ; Viral upper respiratory tract infection J06.9 and Morbid obesity E66.01 [facility] [address] [place] [id number] [address] [place] [address] Jun, Viral upper respiratory trac t infection J06.9 [facility] [address] [place] [id number] [address] [place] [address] Apr, Abnormal laboratory test R89 .9 [facility] [address] [place] [id number] [address] [place] [address] Apr, Abnormal laboratory test R89 .9 [place] [address] [place] [id number] [address] [place] [address] Apr, Abnormal laboratory test R89 .9 [place] [address] [place] [id number] [address] [place] [address] Apr, [place] [address] [address] Apr, [place] [address] [address] Apr, Nonintractable episodic head ache, unspecified headache type R51 ; Urge incontinence of urine N39.41 ; BMI 40.0-44.9, adult Z68.41 ; Myalgia M79.10 and Acute cystitis without hematuria N30.00 [place] [address] [address] Mar, Nasal congestion R09.81 ; Lo w back pain M54.5 ; Reactive airway disease without complication, unspecified asthma severity, unspecified whether persistent J45.909 ; Other chronic pain G89.29 ; Acute cystitis with hematuria N30.01 and BMI 40.0-44.9, adult Z68.41 [facility] [address] [place] [id number] [address] [place] [address] Mar, Acute cystitis with hematuri a N30.01 [facility] [address] [address] 25 Mar, 2018 BMI 40.0-44.9, adult Z68.41 ; Acute cystitis with hematuria N30.01 ; Acute bilateral low back pain without sciatica M54.5 and Nausea R11.0 [place] [address] [address] 17 Mar, 2018 Hypertension I10 ; Acquired hypothyroidism E03.9 ; Esophageal reflux K21.9 ; Chronic obstructive pulmonary disease, unspecified COPD type J44.9 and BMI 40.0-44.9, adult Z68.41 [place] [address] [address] 15 Mar, 2018 Hypertension I10 [place] [address] [address] Nov, Hyperlipidemia, unspecified E78.[address] [address] October, Chest pain, unspecified type R07.9 and Acquired hypothyroidism E03.9 [place] [address] [address] October, Chest pain, unspecified type R07.9 ; Family history of coronary artery disease Z82.49 ; Carpal tunnel syndrome of left wrist G56.02 ; Hypertension I10 ; Esophageal reflux K21.9 ; Arthralgia M25.50 ; Acquired hypothyroidism E03.9 ; Cough R05 ; Nausea R11.0 ; Weight gain R63.5 and BMI 45.0-49.9, adult Z68.42 [place] [address] [address] Jun, Acquired hypothyroidism E03. 9 and Cough R05 [place] [address] [address] May, [place] [address] [address] Feb, Tarsal tunnel syndrome of timi th lower extremities G57.53 and Neuropathy G62.9 [facility] [address] [facility] [id number] [address] [place] [address] Dec, Pleuritis R09.1 [facility] [address] [facility] [id number] [address] [place] [address] Nov, [facility] [address] [facility] [id number] [address] [place] [address] October, Arthralgia, unspecified join t M25.50 and Allergy, initial encounter T78.40XA [facility] [address] [facility] [id number] [address] [place] [address] October, [place] [address] [place] [id number] [address] [place] [address] October, Acute recurrent maxillary si nusitis J01.01 and Arthralgia M25.50 [place] [address] [place] [id number] [address] [place] [address] Sep, Pharyngitis due to other org anism J02.8 [place] [address] [facility] [id number] [address] [place] [address] Aug, Acute nasopharyngitis J00 [place] [address] [facility] [id number] [address] [place] [address] Aug, Multinodular goiter E04.2 [place] [address] [facility] [id number] [address] [place] [address] Aug, Thyroid nodule E04.1 [place] [address] [facility] [id number] [address] [place] [address] Jul, Tarsal tunnel syndrome of timi th lower extremities G57.53 [place] [address] [facility] [id number] [address] [place] [address] Jun, Pneumonia due to infectious organism, unspecified laterality, unspecified part of lung J18.9 [place] [address] [facility] [id number] [place] [address] Jun, Bronchospasm with bronchitis , acute J20.9 [place] [address] [address] May, Acute non-recurrent frontal sinusitis J01.10 [place] [address] [address] May, Flat foot [pes planus] (acqu ired), left foot M21.42 ; Flat foot [pes planus] (acquired), right foot M21.41 and Neuropathy G62.9 [place] [address] [address] Apr, Chronic tension-type headach e, intractable G44.221 ; Right lower quadrant abdominal pain R10.31 ; Cervicalgia M54.2 ; Acute gastritis without hemorrhage, unspecified gastritis type K29.00 and Hypertension I10 [place] [address] [address] Mar, Depression F32.9 and Anxiety disorder, unspecified F41.9 [place] [address] [address] Feb, Depressive disorder F32.9 an d Anxiety disorder, unspecified F41.9 [place] [address] [address] Jan, Dysuria R30.0 ; Lower abdomi nal pain R10.30 ; Acute bilateral low back pain without sciatica M54.5 ; Nausea and vomiting, unspecified intactability, vomiting of unspecified type R11.2 ; Pain in right foot M79.671 and Pain of left foot M79.672 [place] [address] [address] Dec, Urinary tract infection, sit e not specified N39.0 [place] [address] [address] Dec, [place] [address] [place] [id number] [address] [place] [address] 07 Nov, 2015 [place] [address] [address] Nov, Dysuria R30.0 [place] [address] [address] Nov, Dysuria R30.0 and Acute cyst itis with hematuria N30.01 [place] [address] [address] October, Nausea R11.0 [place] [address] [address] October, Thyroid nodule E04.1 ; Carpa l tunnel syndrome, left upper limb G56.02 ; Carpal tunnel syndrome, right upper limb G56.01 and Constipation, unspecified constipation type K59.00 [place] [address] [address] October, [place] [address] [address] October, Thyroid nodule E04.1 [place] [address] [address] October, Cold thyroid nodule E04.1 [place] [address] [address] October, [place] [address] [address] Sep, Thyroid nodule E04.1 [place] [address] [address] Sep, Thyroid nodule E04.1 [place] [address] [place] [id number] [place] [address] Sep, Thyroid nodule E04.1 ; Hyper tension I10 ; Esophageal reflux K21.9 and Hyperlipidemia, unspecified E78.5 [facility] [address] [place] [id number] [address] [place] [address] 14 Aug, 2015 Other chronic pain G89.29 ; Sinusitis J32.9 and Hypertension I10 [facility] [address] [place] [id number] [address] [place] [address] 29 Jul, 2015 [place] [address] [address] 15 Jul, 2015 [facility] [address] [address] 10 Jul, 2015 Insomnia G47.00 and Arthralg ia M25.50 [place] [address] [address] 10 Jul, 2015 Depressive disorder F32.9 an d Anxiety disorder, unspecified F41.9 [place] [address] [address] May, Right-sided low back pain wi thout sciatica M54.5 and Depression F32.9 [place] [address] [address] Apr, Hematuria R31.9 [place] [address] [address] Mar, Other chronic pain G89.29 [place] [address] [address] Mar, Other chronic pain G89.29 [place] [address] [place] [id number] [address] [place] [address] Feb, [place] [address] [address] 22 Feb, 2015 Other chronic pain 338.29 ; Dysuria 788.1 ; UTI (urinary tract infection) 599.0 ; Insomnia 780.52 ; Hot flashes 627.2 and Hypertension 401.9 [place] [address] [place] [address] [place] [address] Feb, Dysuria 788.1 [facility] [address] [facility] [id number] [address] [place] [address] Feb, [facility] [address] [facility] [id number] [address] [place] [address] Jan, [facility] [address] [facility] [id number] [address] [place] [address] Jan, [facility] [address] [facility] [id number] [address] [place] [address] Jan, Fibromyalgia 729.1 ; Hyperte nsion 401.9 ; Dysthymia 300.4 and Hot flashes 627.2 [facility] [address] [facility] [id number] [address] [place] [address] Dec, [facility] [address] [facility] [id number] [address] [place] [address] Dec, [facility] [address] [id number] [address] [place] [address] Dec, [facility] [address] [facility] [id number] [address] [place] [address] Nov, Other chronic pain 338.29 [facility] [address] [id number] [address] [place] [address] October, [facility] [address] [facility] [id number] [address] [place] [address] October, [facility] [address] [facility] [id number] [address] [place] [address] Sep, [facility] [address] [facility] [id number] [address] [place] [address] Sep, [facility] [address] [facility] [id number] [address] [place] [address] Aug, [facility] [address] [facility] [id number] [address] [place] [address] Aug, [facility] [address] [id number] [facility] [place] [address] Aug, [facility] [address] [id number] [address] [place] [address], [place] [address] Aug, [facility] [address] [id number] [address] [place] [address], [place] [address] Aug, [facility] [address] [id number] [address] [place] [address], [place] [address] Aug, [facility] [address] [id number] [address] [place] [address], [place] [address] Aug, [facility] [address] [id number] [address] [place] [address], [place] [address] Aug, [facility] [address] [id number] [address] [place] [address], [place] [address] Aug, [facility] [address] [id number] [address] [place] [address], [place] [address] Aug, [facility] [address] [id number] [address] [place] [address], [place] [address] Aug, [facility] [address] [id number] [address] [place] [address], [place] [address] Aug, [facility] [address] [id number] [address] [place] [address], [place] [address] Aug, [facility] [address] [id number] [address] [place] [address], [place] [address] Aug, [facility] [address] [id number] [address] [place] [address], [place] [address] Jul, [facility] [address] [id number] [address] [place] [address], [place] [address] Jul, [facility] [address] [id number] [address] [place] [address], [place] [address] Jul, [facility] [address] [id number] [address] [place] [address], [place] [address] Jul, [facility] [address] [id number] [address] [place] [address], [place] [address] Jul, [facility] [address] [id number] [address] [place] [address], [place] [address] Jul, [facility] [address] [id number] [address] [place] [address], [place] [address] Jun, [facility] [address] [id number] [address] [place] [address], [place] [address] Jun, [facility] [address] [id number] [address] [place] [address], [place] [address] Jun, [facility] [address] [id number] [address] [place] [address], [place] [address] Jun, [facility] [address] [id number] [address] [place] [address], [place] [address] May, [facility] [address] [id number] [address] [place] [address], [place] [address] May, [facility] [address] [id number] [address] [place] [address], [place] [address] May, [facility] [address] [id number] [address] [place] [address], [place] [address] May, [facility] [address] [id number] [address] [place] [address], [place] [address] May, [facility] [address] [id number] [address] [place] [address], [place] [address] May, [facility] [address] [id number] [address] [place] [address], [place] [address] May, [facility] [address] [id number] [address] [place] [address], [place] [address] May, [facility] [address] [id number] [address] [place] [address] [address] May, [facility] [address] [id number] [address] [place] [address], [place] [address] May, [facility] [address] [id number] [address] [place] [address], [place] [address] Apr, [facility] [address] [id number] [address] [place] [address], [place] [address] Apr, [facility] [address] [id number] [address] [place] [address], [place] [address] Apr, [facility] [address] [id number] [address] [place] [address], [place] [address] Apr, [facility] [address] [id number] [address] [place] [address], [place] [address] Apr, [facility] [address] [id number] [address] [place] [address], [place] [address] Apr, [facility] [address] [id number] [address] [place] [address], [place] [address] Apr, [facility] [address] [id number] [address] [place] [address], [place] [address] Apr, [facility] [address] [id number] [address] [place] [address], [place] [address] Apr, [facility] [address] [id number] [address] [place] [address], [place] [address] Mar, [facility] [address] [id number] [address] [place] [address] Mar, [facility] [address] [id number] [address] [place] [address], [place] [address] Mar, [facility] [address] [id number] [address] [place] [address], [place] [address] Mar, [facility] [address] [id number] [address] [place] [address], [place] [address] Mar, [facility] [address] [id number] [address] [place] [address], [place] [address] 08 Mar, 2013 [facility] [address] [id number] [address] [place] [address], [place] [address] 08 Mar, 2013 [facility] [address] [id number] [address] [place] [address], [place] [address] 08 Mar, 2013 [facility] [address] [id number] [address] [place] [address], [place] [address] 30 Sep, 2013 [facility] [address] [id number] [address] [place] [address], [place] [address] 30 Sep, 2013 [facility] [address] [id number] [address] [place] [address], [place] [address] 24 Sep, 2013 [facility] [address] [id number] [address] [place] [address], [place] [address] 24 Sep, 2013 [facility] [address] [id number] [address] [place] [address], [place] [address] 22 Feb, 2013 [facility] [address] [id number] [address] [place] [address], [place] [address] 22 Sep, 2013 [facility] [address] [id number] [address] [place] [address], [place] [address] 10 Feb, 2013 [facility] [address] [id number] [address] [place] [address], [place] [address] 10 Sep, 2013 [facility] [address] [id number] [address] [place] [address], [place] [address] 03 Sep, 2013 [facility] [address] [id number] [address] [place] [address], [place] [address] 03 Sep, 2013 [facility] [address] [id number] [address] [place] [address], [place] [address] 03 Sep, 2013 [facility] [address] [id number] [address] [place] [address], [place] [address] 03 Sep, 2013 [facility] [address] [id number] [address] [place] [address], [place] [address] Feb, [facility] [address] [id number] [address] [place] [address], [place] [address] Feb, [facility] [address] [id number] [address] [place] [address], [place] [address] Jan, [facility] [address] [id number] [address] [place] [address], [place] [address] Jan, [facility] [address] [id number] [address] [place] [address], [place] [address] Dec, [facility] [address] [id number] [address] [place] [address], [place] [address] Dec, [facility] [address] [id number] [address] [place] [address], [place] [address] Dec, [facility] [address] [id number] [address] [place] [address], [place] [address] Dec, [facility] [address] [id number] [address] [place] [address], [place] [id number] Dec, [facility] [address] [id number] [address] [place] [address], [place] [address] Dec, [facility] [address] [id number] [address] [place] [address], [place] [address] Dec, [facility] [address] [id number] [address] [place] [address], [place] [address] Dec, [facility] [address] [id number] [address] [place] [address], [place] [address] Dec, [facility] [address] [id number] [address] [place] [address], [place] [address] Dec, [facility] [address] [id number] [address] [place] [address], [place] [address] Dec, [facility] [address] [id number] [address] [place] [address], [place] [address] Dec, [facility] [address] [id number] [address] [place] [address], [place] [address] Dec, 2013 [facility] [address] [id number] [address] [place] [address], [place] [address] Dec, 2013 [facility] [address] [id number] [address] [place] [address], [place] [address] Dec, 2013 [facility] [address] [id number] [address] [place] [address], [place] [address] Dec, 2013 [facility] [address] [id number] [address] [place] [address], [place] [address] Dec, 2013 [facility] [address] [id number] [address] [place] [address], [place] [address] Dec, [facility] [address] [id number] [address] [place] [address], [place] [address] Dec, [facility] [address] [id number] [address] [place] [address], [place] [address] Nov, [facility] [address] [id number] [address] [place] [address], [place] [address] Nov, [facility] [address] [id number] [address] [place] [address], [place] [address] Nov, [facility] [address] [id number] [address] [place] [address], [place] [address] Nov, [facility] [address] [id number] [address] [place] [address], [place] [address] Nov, [facility] [address] [id number] [address] [place] [address], [place] [address] Nov, [facility] [address] [id number] [address] [place] [address], [place] [address] Nov, [facility] [address] [id number] [address] [place] [address], [place] [address] Nov, [facility] [address] [id number] [address] [place] [address], [place] [address] Nov, [facility] [address] [id number] [facility] [place] [address] October, [facility] [address] [id number] [address] [place] [address], [place] [address] October, [facility] [address] [id number] [address] [place] [address], [place] [address] October, [facility] [address] [id number] [address] [place] [address], [place] [address] October, [facility] [address] [id number] [address] [place] [address], [place] [address] October, [facility] [address] [id number] [address] [place] [address], [place] [address] October, [facility] [address] [id number] [address] [place] [address], [place] [address] October, [facility] [address] [id number] [address] [place] [address], [place] [address] October, [facility] [address] [id number] [address] [place] [address], [place] [address] Sep, [facility] [address] [id number] [address] [place] [address], [place] [address] Sep, [facility] [address] [id number] [address] [place] [address], [place] [address] Sep, [facility] [address] [id number] [address] [place] [address], [place] [address] Sep, [facility] [address] [id number] [address] [place] [address], [place] [address] Sep, [facility] [address] [id number] [address] [place] [address], [place] [address] Sep, [facility] [address] [id number] [address] [place] [address], [place] [address] Sep, [facility] [address] [id number] [address] [place] [address], [place] [address] Aug, [facility] [address] [id number] [address] [place] [address], [place] [address] Aug, [facility] [address] [id number] [address] [place] [address], [place] [address] Aug, [facility] [address] [id number] [address] [place] [address], [place] [address] Aug, [facility] [address] [id number] [address] [place] [address], [place] [address] Aug, [facility] [address] [id number] [address] [place] [address], [place] [address] Aug, [facility] [address] [id number] [address] [place] [address], [place] [address] Jul, [facility] [address] [id number] [address] [place] [address], [place] [address] Jul, [facility] [address] [id number] [address] [place] [address], [place] [address] Jul, [facility] [address] [id number] [address] [place] [address], [place] [address] Jul, [facility] [address] [id number] [address] [place] [address], [place] [address] Jul, [facility] [address] [id number] [address] [place] [address], [place] [address] Jul, [facility] [address] [id number] [address] [place] [address], [place] [address] Jun, [facility] [address] [id number] [address] [place] [address], [place] [address] Jun, [facility] [address] [id number] [address] [place] [address], [place] [address] Jun, [facility] [address] [id number] [address] [place] [address], [place] [address] Jun, [facility] [address] [id number] [address] [place] [address], [place] [address] Jun, [facility] [address] [id number] [address] [place] [address], [place] [address] Jun, [facility] [address] [id number] [address] [place] [address], [place] [address] Jun, [facility] [address] [id number] [address] [place] [address], [place] [address] Jun, [facility] [address] [id number] [address] [place] [address], [place] [address] Jun, [facility] [address] [id number] [address] [place] [address], [place] [address] Jun, [facility] [address] [id number] [address] [place] [address], [place] [address] Jun, [facility] [address] [id number] [address] [place] [address], [place] [address] Jun, [facility] [address] [id number] [address] [place] [address], [place] [address] Jun, [facility] [address] [id number] [address] [place] [address], [place] [address] 30 May, 2013 [facility] [address] [id number] [address] [place] [address], [place] [address] 30 May, 2013 [facility] [address] [id number] [address] [place] [address], [place] [address] 30 May, 2013 [facility] [address] [id number] [address] [place] [address], [place] [address] 30 May, 2013 [facility] [address] [id number] [address] [place] [address], [place] [address] May, [facility] [address] [id number] [address] [place] [address], [place] [address] 14 May, 2013 [facility] [address] [id number] [address] [place] [address], [place] [address] 14 May, 2013 [facility] [address] [id number] [address] [place] [address], [place] [address] 12 May, 2013 [facility] [address] [id number] [address] [place] [address], [place] [address] May, [facility] [address] [id number] [address] [place] [address], [place] [address] May, [facility] [address] [id number] [address] [place] [address], [place] [address] May, [facility] [address] [id number] [address] [place] [address], [place] [address] May, [facility] [address] [id number] [address] [place] [address], [place] [address] May, [facility] [address] [id number] [address] [place] [address], [place] [address] May, [facility] [address] [id number] [address] [place] [address], [place] [address] May, [facility] [address] [id number] [address] [place] [address], [place] [address] May, [facility] [address] [id number] [address] [place] [address], [place] [address] May, [facility] [address] [id number] [address] [place] [address], [place] [address] May, [facility] [address] [id number] [address] [place] [address], [place] [address] May, [facility] [address] [id number] [address] [place] [address], [place] [address] May, [facility] [address] [id number] [address] [place] [address], [place] [address] May, [facility] [address] [id number] [address] [place] [address], [place] [address] Apr, [facility] [address] [id number] [address] [place] [address], [place] [address] Apr, [facility] [address] [id number] [address] [place] [address], [place] [address] Apr, [facility] [address] [id number] [address] [place] [address], [place] [address] Apr, [facility] [address] [id number] [address] [place] [address], [place] [address] Mar, [facility] [address] [id number] [address] [place] [address], [place] [address] 23 Feb, 2013 [facility] [address] [id number] [address] [place] [address], [place] [address] 16 Feb, 2013 [facility] [address] [id number] [address] [place] [address], [place] [address] 13 Feb, 2013 [facility] [address] [id number] [address] [place] [address], [place] [address] 10 Feb, 2013 [facility] [address] [id number] [address] [place] [address], [place] [address] Feb, [facility] [address] [id number] [address] [place] [address], [place] [address] Feb, [facility] [address] [id number] [address] [place] [address], [place] [address] Jan, [facility] [address] [id number] [address] [place] [address], [place] [address] Jan, [facility] [address] [id number] [address] [place] [address], [place] [address] Jan, [facility] [address] [id number] [address] [place] [address], [place] [address] Dec, [facility] [address] [id number] [address] [place] [address], [place] [address] Dec, [facility] [address] [id number] [address] [place] [address], [place] [address] Dec, [facility] [address] [id number] [address] [place] [address], [place] [address] 15 Dec, 2012 [facility] [address] [id number] [address] [place] [address], [place] [address] Dec, [facility] [address] [id number] [address] [place] [address], [place] [address] Nov, [facility] [address] [id number] [address] [place] [address], [place] [address] Nov, [facility] [address] [id number] [address] [place] [address], [place] [address] Nov, [facility] [address] [id number] [address] [place] [address], [place] [address] Nov, [facility] [address] [id number] [address] [place] [address], [place] [address] Nov, [facility] [address] [id number] [address] [place] [address], [place] [address] 08 Nov, 2012 [facility] [address] [id number] [address] [place] [address], [place] [address] 07 Nov, 2012 [facility] [address] [id number] [address] [place] [address], [place] [address] 06 Nov, 2012 [facility] [address] [id number] [address] [place] [address], [place] [address] 05 Nov, 2012 [facility] [address] [id number] [address] [place] [address], [place] [address] Nov, [facility] [address] [id number] [address] [place] [address], [place] [address] October, [facility] [address] [id number] [address] [place] [address], [place] [address] October, [facility] [address] [id number] [address] [place] [address], [place] [address] Sep, [facility] [address] [id number] [address] [place] [address], [place] [address] 08 Sep, 2012 [facility] [address] [id number] [address] [place] [address], [place] [address] 08 Sep, 2012 [facility] [address] [id number] [address] [place] [address], [place] [address] Sep, [facility] [address] [id number] [address] [place] [address], [place] [address] Sep, [facility] [address] [id number] [address] [place] [address], [place] [address] Aug, [facility] [address] [id number] [address] [place] [address], [place] [address] Aug, [facility] [address] [id number] [address] [place] [address], [place] [address] Jul, [facility] [address] [id number] [address] [place] [address], [place] [address] Jul, [facility] [address] [id number] [address] [place] [address], [place] [address] Jun, [facility] [address] [id number] [address] [place] [address], [place] [address] Jun, [facility] [address] [id number] [address] [place] [address], [place] [address] May, [facility] [address] [id number] [address] [place] [address], [place] [address] May, [facility] [address] [id number] [address] [place] [address], [place] [address] May, [facility] [address] [id number] [address] [place] [address], [place] [address] May, [facility] [address] [id number] [address] [place] [address], [place] [address] Apr, [facility] [address] [id number] [address] [place] [address], [place] [address] Apr, [facility] [address] [id number] [address] [place] [address], [place] [address] Apr, [facility] [address] [id number] [address] [place] [address], [place] [address] Apr, [facility] [address] [id number] [address] [place] [address], [place] [address] 20 Apr, 2012 [facility] [address] [id number] [address] [place] [address], [place] [address] 14 Apr, 2012 [facility] [address] [id number] [address] [place] [address], [place] [address] 14 Apr, 2012 [facility] [address] [id number] [address] [place] [address], [place] [address] Apr, [facility] [address] [id number] [address] [place] [address], [place] [address] Apr, [facility] [address] [id number] [address] [place] [address], [place] [address] 15 Mar, 2012 [facility] [address] [id number] [address] [place] [address], [place] [address] Mar, [facility] [address] [id number] [address] [place] [address], [place] [address] 05 Feb, 2012 [facility] [address] [id number] [address] [place] [address], [place] [address] Jan, [facility] [address] [id number] [address] [place] [address], [place] [address] Jan, [facility] [address] [id number] [address] [place] [address], [place] [address] Dec, [facility] [address] [id number] [address] [place] [address], [place] [address] Nov, [facility] [address] [id number] [address] [place] [address], [place] [address] Nov, [facility] [address] [id number] [address] [place] [address], [place] [address] October, [facility] [address] [id number] [address] [place] [address], [place] [address] October, [facility] [address] [id number] [address] [place] [address], [place] [address] Sep, [facility] [address] [id number] [address] [place] [address], [place] [address] Sep, [facility] [address] [id number] [address] [place] [address], [place] [address] May, [facility] [address] [id number] [address] [place] [address], [place] [address] Apr, [facility] [address] [id number] [address] [place] [address], [place] [address] Apr, [facility] [address] [id number] [address] [place] [address], [place] [address] Apr, [facility] [address] [id number] [address] [place] [address], [place] [address] Apr, [facility] [address] [id number] [address] [place] [address], [place] [address] Apr, [facility] [address] [id number] [address] [place] [address], [place] [address] Apr, [facility] [address] [id number] [address] [place] [address], [place] [address] Apr, [facility] [address] [id number] [address] [place] [address], [place] [address] Apr, [facility] [address] [id number] [address] [place] [address], [place] [address] Mar, [facility] [address] [id number] [address] [place] [address], [place] [address] Mar, [facility] [address] [id number] [address] [place] [address], [place] [address] Mar, [facility] [address] [id number] [address] [address] Mar, [facility] [address] [facility] [id number] [address] [place] [address] Mar, [facility] [address] [facility] [id number] [address] [place] [address] Mar, IMMUNIZATIONS No Known Immunizations SOCIAL HISTORY [...] tubal ligation Hospitalization History Mental floor at [facility]
--- OUTSIDE RECORDS SUMMARY | 2019-12-24 19:37 | XMS REPORT ---
Author Author Trey Christianson Organization [facility] [place] Address [address] [place] [address] Care Team Providers Care Conference Center Manager Name Role Phone AIRAM Christianson Unavailable PROBLEMS Type Condition ICD9-CM Code [id number] Code Onset Dates Condition S tatus SNOMED Code Problem Unspecified epilepsy without mention of intractable ep ilepsy G40.909 Active 52539483 Problem Hypertension I10 Active 7530619 3 Problem Other chronic pain G89.29 Active 1 33746386 Problem Rheumatoid arthritis M06.9 Active 69994595 Problem Hyperlipidemia, unspecified E78.5 Ac tive 63792945 Problem Depressive disorder F32.9 Active 94133464 Problem Esophageal reflux K21.9 Active 23 2042360 Problem Carpal tunnel syndrome of left wrist G56.02 Active 311079436832375 Problem Presbyopia H52.4 Active 67825443 Problem Cough R05 Active 92063286 Problem Nondependent 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 Ac tive 083375928 Problem Unspecified open-angle glaucoma, stage unspecified H40.10X0 Feb, Active 53132399 Problem Anxiety disorder, unspecified F41.9 Active 053701782 Problem Insomnia G47.00 Active 622882143 Problem Neuropathy G62.9 Active 600191629 Problem Thyroid nodule E04.1 Active 80445 5005 Problem Multinodular goiter E04.2 Active 533879530 Problem Chronic tension-type headache, intractable G44.221 Active 410890964 Problem Acquired hypothyroidism E03.9 Active 700326237 Problem Goiter E04.9 Active 4115216 Problem Chronic obstructive pulmonary disease, unspecified COPD ty pe J44.9 Active 89488033 Problem Reactive airway disease with out complication, unspecified asthma severity, unspecified whether persistent J45.909 Active 024093230678 Problem BMI 40.0-44.9, adult Z68.41 Active 053788503 Problem Essential hypertension I10 Active 19163687 Problem Right-sided low back pain without sciatica M54.5 Active 562910989 Problem Tension headache G44.209 Active 398 546447 Problem Depression F32.9 Active 49827847 Problem Arthralgia M25.50 Active 57716567 Problem Urge incontinence of urine N39.41 Act chen 01371599 Problem Abnormal laboratory test R89.9 Activ e 547214057 Problem COPD with exacerbation J44.1 Active 896085489 Problem Seasonal allergic rhinitis due to pollen J30.1 Active 31695806 ALLERGIES No Information ENCOUNTERS Encounter Location Date Diagnosis [facility] [address] [facility] [id number] [address] [place] [address] [id number] October, [place] [address] [address] October, Thyroid nodule E04.1 and Mul tinodular goiter E04.2 [place] [address] [address] Sep, Thyroid nodule E04.1 [place] [address] [address] Sep, [facility] [place] [address] [address] Sep, Counseled by nurse Z71.9 and Thyroid nodule E04.1 [place] [address] [address] Sep, Acquired hypothyroidism E03. 9 ; Tension headache G44.209 ; Essential hypertension I10 ; Multinodular goiter E04.2 and BMI 40.0-44.9, adult Z68.41 [facility] [place] [address] [place] [id number] [address] [place] [address] Aug, Pelvic pain R10.2 ; Other sp ecified bacterial agents as the cause of diseases classified elsewhere B96.89 and Acute vaginitis N76.0 [place] [address] [address] Apr, Bronchitis J40 [place] [address] [address] Apr, Acute gastritis without hemo rrhage, unspecified gastritis type K29.00 [place] [address] [address] Mar, [place] [address] [address] Feb, [place] [address] [address] Feb, Mass of right side of neck R 22.1 and Multinodular goiter E04.2 [facility] [address] [address] Jan, Bronchitis J40 [place] [address] [address] October, Acquired hypothyroidism E03. 9 [place] [address] [address] October, Acute gastritis without hemo rrhage, unspecified gastritis type K29.00 ; Epigastric pain R10.13 ; Essential hypertension I10 ; Screening for colon cancer Z12.11 and BMI 40.0-44.9, adult Z68.41 [place] [address] [address] October, [facility] [place] [address] [address] October, Chest pain R07.9 and Morbid obesity E66.01 [facility] [address] [address] Sep, Generalized abdominal pain R 10.84 ; Morbid obesity E66.01 ; Non-intractable vomiting with nausea, unspecified vomiting type R11.2 and Seasonal allergic rhinitis due to pollen J30.1 [facility] [place] [address] [address] Jul, COPD with exacerbation J44.1 ; Viral upper respiratory tract infection J06.9 and Morbid obesity E66.01 [facility] [address] [place] [id number] [address] [place] [address] Jun, Viral upper respiratory trac t infection J06.9 [facility] [place] [address] [place] [id number] [address] [place] [address] Apr, Abnormal laboratory test R89 .9 [facility] [place] [address] [place] [id number] [address] [place] [address] Apr, Abnormal laboratory test R89 .9 [place] [address] [place] [id number] [place] [address] Apr, Abnormal laboratory test R89 .9 [place] [address] [place] [id number] [address] [place] [address] Apr, [place] [address] [address] Apr, [place] [address] [address] Apr, Nonintractable episodic head ache, unspecified headache type R51 ; Urge incontinence of urine N39.41 ; BMI 40.0-44.9, adult Z68.41 ; Myalgia M79.10 and Acute cystitis without hematuria N30.00 [place] [address] [address] Mar, Nasal congestion R09.81 ; Lo w back pain M54.5 ; Reactive airway disease without complication, unspecified asthma severity, unspecified whether persistent J45.909 ; Other chronic pain G89.29 ; Acute cystitis with hematuria N30.01 and BMI 40.0-44.9, adult Z68.41 [facility] [place] [address] [place] [id number] [address] [place] [address] Mar, Acute cystitis with hematuri a N30.01 [facility] [address] [address] 25 Mar, 2018 BMI 40.0-44.9, adult Z68.41 ; Acute cystitis with hematuria N30.01 ; Acute bilateral low back pain without sciatica M54.5 and Nausea R11.0 [place] [address] [address] 17 Mar, 2018 Hypertension I10 ; Acquired hypothyroidism E03.9 ; Esophageal reflux K21.9 ; Chronic obstructive pulmonary disease, unspecified COPD type J44.9 and BMI 40.0-44.9, adult Z68.41 [place] [address] [address] 15 Mar, 2018 Hypertension I10 [place] [address] [address] Nov, Hyperlipidemia, unspecified E78.[address] [address] October, Chest pain, unspecified type R07.9 and Acquired hypothyroidism E03.9 [place] [address] [address] October, Chest pain, unspecified type R07.9 ; Family history of coronary artery disease Z82.49 ; Carpal tunnel syndrome of left wrist G56.02 ; Hypertension I10 ; Esophageal reflux K21.9 ; Arthralgia M25.50 ; Acquired hypothyroidism E03.9 ; Cough R05 ; Nausea R11.0 ; Weight gain R63.5 and BMI 45.0-49.9, adult Z68.42 [place] [address] [address] Jun, Acquired hypothyroidism E03. 9 and Cough R05 [place] [address] [address] May, [place] [address] [address] Feb, Tarsal tunnel syndrome of timi th lower extremities G57.53 and Neuropathy G62.9 [facility] [place] [address] [facility] [id number] [address] [place] [address] Dec, Pleuritis R09.1 [facility] [place] [address] [facility] [id number] [address] [place] [address] Nov, [facility] [place] [address] [facility] [id number] [address] [place] [address] October, Arthralgia, unspecified join t M25.50 and Allergy, initial encounter T78.40XA [facility] [place] [address] [facility] [id number] [address] [place] [address] October, [place] [address] [place] [id number] [address] [place] [address] October, Acute recurrent maxillary si nusitis J01.01 and Arthralgia M25.50 [place] [address] [place] [id number] [address] [place] [address] Sep, Pharyngitis due to other org anism J02.8 [place] [address] [facility] [id number] [address] [place] [address] Aug, Acute nasopharyngitis J00 [place] [address] [facility] [id number] [address] [place] [address] Aug, Multinodular goiter E04.2 [place] [address] [facility] [id number] [address] [place] [address] Aug, Thyroid nodule E04.1 [place] [address] [facility] [id number] [address] [place] [address] Jul, Tarsal tunnel syndrome of timi th lower extremities G57.53 [place] [address] [facility] [id number] [address] [place] [address] Jun, Pneumonia due to infectious organism, unspecified laterality, unspecified part of lung J18.9 [place] [address] [facility] [id number] [place] [address] Jun, Bronchospasm with bronchitis , acute J20.9 [place] [address] [address] May, Acute non-recurrent frontal sinusitis J01.10 [place] [address] [address] May, Flat foot [pes planus] (acqu ired), left foot M21.42 ; Flat foot [pes planus] (acquired), right foot M21.41 and Neuropathy G62.9 [place] [address] [address] Apr, Chronic tension-type headach e, intractable G44.221 ; Right lower quadrant abdominal pain R10.31 ; Cervicalgia M54.2 ; Acute gastritis without hemorrhage, unspecified gastritis type K29.00 and Hypertension I10 [place] [address] [address] Mar, Depression F32.9 and Anxiety disorder, unspecified F41.9 [place] [address] [address] Feb, Depressive disorder F32.9 an d Anxiety disorder, unspecified F41.9 [place] [address] [address] Jan, Dysuria R30.0 ; Lower abdomi nal pain R10.30 ; Acute bilateral low back pain without sciatica M54.5 ; Nausea and vomiting, unspecified intactability, vomiting of unspecified type R11.2 ; Pain in right foot M79.671 and Pain of left foot M79.672 [place] [address] [address] Dec, Urinary tract infection, sit e not specified N39.0 [place] [address] [address] Dec, [place] [address] [place] [id number] [place] [address] 07 Nov, 2015 [place] [address] [address] Nov, Dysuria R30.0 [place] [address] [address] Nov, Dysuria R30.0 and Acute cyst itis with hematuria N30.01 [place] [address] [address] October, Nausea R11.0 [place] [address] [address] October, Thyroid nodule E04.1 ; Carpa l tunnel syndrome, left upper limb G56.02 ; Carpal tunnel syndrome, right upper limb G56.01 and Constipation, unspecified constipation type K59.00 [place] [address] [address] October, [place] [address] [address] October, Thyroid nodule E04.1 [place] [address] [address] October, Cold thyroid nodule E04.1 [place] [address] [address] October, [place] [address] [address] Sep, Thyroid nodule E04.1 [place] [address] [address] Sep, Thyroid nodule E04.1 [place] [address] [place] [id number] [place] [address] Sep, Thyroid nodule E04.1 ; Hyper tension I10 ; Esophageal reflux K21.9 and Hyperlipidemia, unspecified E78.5 [facility] [place] [address] [place] [id number] [place] [address] 14 Aug, 2015 Other chronic pain G89.29 ; Sinusitis J32.9 and Hypertension I10 [facility] [place] [address] [place] [id number] [address] [place] [id number] 29 Jul, 2015 [place] [address] [address] 15 Jul, 2015 [facility] [place] [address] [address] 10 Jul, 2015 Insomnia G47.00 and Arthralg ia M25.50 [place] [address] [address] 10 Jul, 2015 Depressive disorder F32.9 an d Anxiety disorder, unspecified F41.9 [place] [address] [address] May, Right-sided low back pain wi thout sciatica M54.5 and Depression F32.9 [place] [address] [address] Apr, Hematuria R31.9 [place] [address] [address] Mar, Other chronic pain G89.29 [place] [address] [address] Mar, Other chronic pain G89.29 [place] [address] [place] [id number] [place] [address] Feb, [place] [address] [address] 22 Feb, 2015 Other chronic pain 338.29 ; Dysuria 788.1 ; UTI (urinary tract infection) 599.0 ; Insomnia 780.52 ; Hot flashes 627.2 and Hypertension 401.9 [place] [address] [place] [address] [place] [address] Feb, Dysuria 788.1 [facility] [place] [address] [facility] [id number] [address] [place] [id number] Feb, [facility] [place] [address] [facility] [id number] [address] [place] [address] Jan, [facility] [place] [address] [facility] [id number] [address] [place] [address] Jan, [facility] [place] [address] [facility] [id number] [address] [place] [address] Jan, Fibromyalgia 729.1 ; Hyperte nsion 401.9 ; Dysthymia 300.4 and Hot flashes 627.2 [facility] [place] [address] [facility] [id number] [address] [place] [address] Dec, [facility] [place] [address] [facility] [id number] [address] [place] [address] Dec, [facility] [place] [address] [id number] [address] [place] [id number] Dec, [facility] [place] [address] [facility] [id number] [address] [place] [address] Nov, Other chronic pain 338.29 [facility] [place] [address] [id number] [address] [place] [address] October, [facility] [place] [address] [facility] [id number] [address] [place] [id number] October, [facility] [place] [address] [facility] [id number] [address] [place] [id number] Sep, [facility] [place] [address] [facility] [id number] [address] [place] [address] Sep, [facility] [place] [address] [facility] [id number] [address] [place] [address] Aug, [facility] [place] [address] [facility] [id number] [address] [place] [address] Aug, [facility] [address] [id number] [facility] [place] [address] Aug, [facility] [address] [id number] [address] [place] [address], [place] [address] Aug, [facility] [address] [id number] [address] [place] [address], [place] [address] Aug, [facility] [address] [id number] [address] [place] [address], [place] [address] Aug, [facility] [address] [id number] [address] [place] [address], [place] [address] Aug, [facility] [address] [id number] [address] [place] [address], [place] [address] Aug, [facility] [address] [id number] [address] [place] [address], [place] [address] Aug, [facility] [address] [id number] [address] [place] [address], [place] [address] Aug, [facility] [address] [id number] [address] [place] [address], [place] [address] Aug, [facility] [address] [id number] [address] [place] [address], [place] [address] Aug, [facility] [address] [id number] [address] [place] [address], [place] [address] Aug, [facility] [address] [id number] [address] [place] [address], [place] [address] Aug, [facility] [address] [id number] [address] [place] [address], [place] [address] Jul, [facility] [address] [id number] [address] [place] [address], [place] [address] Jul, [facility] [address] [id number] [address] [place] [address], [place] [address] Jul, [facility] [address] [id number] [address] [place] [address], [place] [address] Jul, [facility] [address] [id number] [address] [place] [address], [place] [address] Jul, [facility] [address] [id number] [address] [place] [address], [place] [address] Jul, [facility] [address] [id number] [address] [place] [address], [place] [address] Jun, [facility] [address] [id number] [address] [place] [address], [place] [address] Jun, [facility] [address] [id number] [address] [place] [address], [place] [address] Jun, [facility] [address] [id number] [address] [place] [address], [place] [address] Jun, [facility] [address] [id number] [address] [place] [address], [place] [address] May, [facility] [address] [id number] [address] [place] [address], [place] [address] May, [facility] [address] [id number] [address] [place] [address], [place] [address] May, [facility] [address] [id number] [address] [place] [address], [place] [address] May, [facility] [address] [id number] [address] [place] [address], [place] [address] May, [facility] [address] [id number] [address] [place] [address], [place] [address] May, [facility] [address] [id number] [address] [place] [address], [place] [address] May, [facility] [address] [id number] [address] [place] [address], [place] [address] May, [facility] [address] [id number] [address] [place] [address] [address] May, [facility] [address] [id number] [address] [place] [address], [place] [address] May, [facility] [address] [id number] [address] [place] [address], [place] [address] Apr, [facility] [address] [id number] [address] [place] [address], [place] [address] Apr, [facility] [address] [id number] [address] [place] [address], [place] [address] Apr, [facility] [address] [id number] [address] [place] [address], [place] [address] Apr, [facility] [address] [id number] [address] [place] [address], [place] [address] Apr, [facility] [address] [id number] [address] [place] [address], [place] [address] Apr, [facility] [address] [id number] [address] [place] [address], [place] [address] Apr, [facility] [address] [id number] [address] [place] [address], [place] [address] Apr, [facility] [address] [id number] [address] [place] [address], [place] [address] Apr, [facility] [address] [id number] [address] [place] [address], [place] [address] Mar, [facility] [address] [id number] [address] [place] [address] Mar, [facility] [address] [id number] [address] [place] [address], [place] [address] Mar, [facility] [address] [id number] [address] [place] [address], [place] [address] Mar, [facility] [address] [id number] [address] [place] [address], [place] [address] Mar, [facility] [address] [id number] [address] [place] [address], [place] [address] 08 Mar, 2013 [facility] [address] [id number] [address] [place] [address], [place] [address] 08 Mar, 2013 [facility] [address] [id number] [address] [place] [address], [place] [address] 08 Mar, 2013 [facility] [address] [id number] [address] [place] [address], [place] [address] 30 Sep, 2013 [facility] [address] [id number] [address] [place] [address], [place] [address] 30 Sep, 2013 [facility] [address] [id number] [address] [place] [address], [place] [address] 24 Sep, 2013 [facility] [address] [id number] [address] [place] [address], [place] [address] 24 Sep, 2013 [facility] [address] [id number] [address] [place] [address], [place] [address] 22 Feb, 2013 [facility] [address] [id number] [address] [place] [address], [place] [address] 22 Sep, 2013 [facility] [address] [id number] [address] [place] [address], [place] [address] 10 Feb, 2013 [facility] [address] [id number] [address] [place] [address], [place] [address] 10 Sep, 2013 [facility] [address] [id number] [address] [place] [address], [place] [address] 03 Sep, 2013 [facility] [address] [id number] [address] [place] [address], [place] [address] 03 Sep, 2013 [facility] [address] [id number] [address] [place] [address], [place] [address] 03 Sep, 2013 [facility] [address] [id number] [address] [place] [address], [place] [address] 03 Sep, 2013 [facility] [address] [id number] [address] [place] [address], [place] [address] Feb, [facility] [address] [id number] [address] [place] [address], [place] [address] Feb, [facility] [address] [id number] [address] [place] [address], [place] [address] Jan, [facility] [address] [id number] [address] [place] [address], [place] [address] Jan, [facility] [address] [id number] [address] [place] [address], [place] [address] Dec, [facility] [address] [id number] [address] [place] [address], [place] [address] Dec, [facility] [address] [id number] [address] [place] [address], [place] [address] Dec, [facility] [address] [id number] [address] [place] [address], [place] [address] Dec, [facility] [address] [id number] [address] [place] [address], [place] [id number] Dec, [facility] [address] [id number] [address] [place] [address], [place] [address] Dec, [facility] [address] [id number] [address] [place] [address], [place] [address] Dec, [facility] [address] [id number] [address] [place] [address], [place] [address] Dec, [facility] [address] [id number] [address] [place] [address], [place] [address] Dec, [facility] [address] [id number] [address] [place] [address], [place] [address] Dec, [facility] [address] [id number] [address] [place] [address], [place] [address] Dec, [facility] [address] [id number] [address] [place] [address], [place] [address] Dec, [facility] [address] [id number] [address] [place] [address], [place] [address] Dec, 2013 [facility] [address] [id number] [address] [place] [address], [place] [address] Dec, 2013 [facility] [address] [id number] [address] [place] [address], [place] [address] Dec, 2013 [facility] [address] [id number] [address] [place] [address], [place] [address] Dec, 2013 [facility] [address] [id number] [address] [place] [address], [place] [address] Dec, 2013 [facility] [address] [id number] [address] [place] [address], [place] [address] Dec, [facility] [address] [id number] [address] [place] [address], [place] [address] Dec, [facility] [address] [id number] [address] [place] [address], [place] [address] Nov, [facility] [address] [id number] [address] [place] [address], [place] [address] Nov, [facility] [address] [id number] [address] [place] [address], [place] [address] Nov, [facility] [address] [id number] [address] [place] [address], [place] [address] Nov, [facility] [address] [id number] [address] [place] [address], [place] [address] Nov, [facility] [address] [id number] [address] [place] [address], [place] [address] Nov, [facility] [address] [id number] [address] [place] [address], [place] [address] Nov, [facility] [address] [id number] [address] [place] [address], [place] [address] Nov, [facility] [address] [id number] [address] [place] [address], [place] [address] Nov, [facility] [address] [id number] [facility] [place] [address] October, [facility] [address] [id number] [address] [place] [address], [place] [address] October, [facility] [address] [id number] [address] [place] [address], [place] [address] October, [facility] [address] [id number] [address] [place] [address], [place] [address] October, [facility] [address] [id number] [address] [place] [address], [place] [address] October, [facility] [address] [id number] [address] [place] [address], [place] [address] October, [facility] [address] [id number] [address] [place] [address], [place] [address] October, [facility] [address] [id number] [address] [place] [address], [place] [address] October, [facility] [address] [id number] [address] [place] [address], [place] [address] Sep, [facility] [address] [id number] [address] [place] [address], [place] [address] Sep, [facility] [address] [id number] [address] [place] [address], [place] [address] Sep, [facility] [address] [id number] [address] [place] [address], [place] [address] Sep, [facility] [address] [id number] [address] [place] [address], [place] [address] Sep, [facility] [address] [id number] [address] [place] [address], [place] [address] Sep, [facility] [address] [id number] [address] [place] [address], [place] [address] Sep, [facility] [address] [id number] [address] [place] [address], [place] [address] Aug, [facility] [address] [id number] [address] [place] [address], [place] [address] Aug, [facility] [address] [id number] [address] [place] [address], [place] [address] Aug, [facility] [address] [id number] [address] [place] [address], [place] [address] Aug, [facility] [address] [id number] [address] [place] [address], [place] [address] Aug, [facility] [address] [id number] [address] [place] [address], [place] [address] Aug, [facility] [address] [id number] [address] [place] [address], [place] [address] Jul, [facility] [address] [id number] [address] [place] [address], [place] [address] Jul, [facility] [address] [id number] [address] [place] [address], [place] [address] Jul, [facility] [address] [id number] [address] [place] [address], [place] [address] Jul, [facility] [address] [id number] [address] [place] [address], [place] [address] Jul, [facility] [address] [id number] [address] [place] [address], [place] [address] Jul, [facility] [address] [id number] [address] [place] [address], [place] [address] Jun, [facility] [address] [id number] [address] [place] [address], [place] [address] Jun, [facility] [address] [id number] [address] [place] [address], [place] [address] Jun, [facility] [address] [id number] [address] [place] [address], [place] [address] Jun, [facility] [address] [id number] [address] [place] [address], [place] [address] Jun, [facility] [address] [id number] [address] [place] [address], [place] [address] Jun, [facility] [address] [id number] [address] [place] [address], [place] [address] Jun, [facility] [address] [id number] [address] [place] [address], [place] [address] Jun, [facility] [address] [id number] [address] [place] [address], [place] [address] Jun, [facility] [address] [id number] [address] [place] [address], [place] [address] Jun, [facility] [address] [id number] [address] [place] [address], [place] [address] Jun, [facility] [address] [id number] [address] [place] [address], [place] [address] Jun, [facility] [address] [id number] [address] [place] [address], [place] [address] Jun, [facility] [address] [id number] [address] [place] [address], [place] [address] 30 May, 2013 [facility] [address] [id number] [address] [place] [address], [place] [address] 30 May, 2013 [facility] [address] [id number] [address] [place] [address], [place] [address] 30 May, 2013 [facility] [address] [id number] [address] [place] [address], [place] [address] 30 May, 2013 [facility] [address] [id number] [address] [place] [address], [place] [address] May, [facility] [address] [id number] [address] [place] [address], [place] [address] 14 May, 2013 [facility] [address] [id number] [address] [place] [address], [place] [address] 14 May, 2013 [facility] [address] [id number] [address] [place] [address], [place] [address] 12 May, 2013 [facility] [address] [id number] [address] [place] [address], [place] [address] May, [facility] [address] [id number] [address] [place] [address], [place] [address] May, [facility] [address] [id number] [address] [place] [address], [place] [address] May, [facility] [address] [id number] [address] [place] [address], [place] [address] May, [facility] [address] [id number] [address] [place] [address], [place] [address] May, [facility] [address] [id number] [address] [place] [address], [place] [address] May, [facility] [address] [id number] [address] [place] [address], [place] [address] May, [facility] [address] [id number] [address] [place] [address], [place] [address] May, [facility] [address] [id number] [address] [place] [address], [place] [address] May, [facility] [address] [id number] [address] [place] [address], [place] [address] May, [facility] [address] [id number] [address] [place] [address], [place] [address] May, [facility] [address] [id number] [address] [place] [address], [place] [address] May, [facility] [address] [id number] [address] [place] [address], [place] [address] May, [facility] [address] [id number] [address] [place] [address], [place] [address] Apr, [facility] [address] [id number] [address] [place] [address], [place] [address] Apr, [facility] [address] [id number] [address] [place] [address], [place] [address] Apr, [facility] [address] [id number] [address] [place] [address], [place] [address] Apr, [facility] [address] [id number] [address] [place] [address], [place] [address] Mar, [facility] [address] [id number] [address] [place] [address], [place] [address] 23 Feb, 2013 [facility] [address] [id number] [address] [place] [address], [place] [address] 16 Feb, 2013 [facility] [address] [id number] [address] [place] [address], [place] [address] 13 Feb, 2013 [facility] [address] [id number] [address] [place] [address], [place] [address] 10 Feb, 2013 [facility] [address] [id number] [address] [place] [address], [place] [address] Feb, [facility] [address] [id number] [address] [place] [address], [place] [address] Feb, [facility] [address] [id number] [address] [place] [address], [place] [address] Jan, [facility] [address] [id number] [address] [place] [address], [place] [address] Jan, [facility] [address] [id number] [address] [place] [address], [place] [address] Jan, [facility] [address] [id number] [address] [place] [address], [place] [address] Dec, [facility] [address] [id number] [address] [place] [address], [place] [address] Dec, [facility] [address] [id number] [address] [place] [address], [place] [address] Dec, [facility] [address] [id number] [address] [place] [address], [place] [address] 15 Dec, 2012 [facility] [address] [id number] [address] [place] [address], [place] [address] Dec, [facility] [address] [id number] [address] [place] [address], [place] [address] Nov, [facility] [address] [id number] [address] [place] [address], [place] [address] Nov, [facility] [address] [id number] [address] [place] [address], [place] [address] Nov, [facility] [address] [id number] [address] [place] [address], [place] [address] Nov, [facility] [address] [id number] [address] [place] [address], [place] [address] Nov, [facility] [address] [id number] [address] [place] [address], [place] [address] 08 Nov, 2012 [facility] [address] [id number] [address] [place] [address], [place] [address] 07 Nov, 2012 [facility] [address] [id number] [address] [place] [address], [place] [address] 06 Nov, 2012 [facility] [address] [id number] [address] [place] [address], [place] [address] 05 Nov, 2012 [facility] [address] [id number] [address] [place] [address], [place] [address] Nov, [facility] [address] [id number] [address] [place] [address], [place] [address] October, [facility] [address] [id number] [address] [place] [address], [place] [address] October, [facility] [address] [id number] [address] [place] [address], [place] [address] Sep, [facility] [address] [id number] [address] [place] [address], [place] [address] 08 Sep, 2012 [facility] [address] [id number] [address] [place] [address], [place] [address] 08 Sep, 2012 [facility] [address] [id number] [address] [place] [address], [place] [address] Sep, [facility] [address] [id number] [address] [place] [address], [place] [address] Sep, [facility] [address] [id number] [address] [place] [address], [place] [address] Aug, [facility] [address] [id number] [address] [place] [address], [place] [address] Aug, [facility] [address] [id number] [address] [place] [address], [place] [address] Jul, [facility] [address] [id number] [address] [place] [address], [place] [address] Jul, [facility] [address] [id number] [address] [place] [address], [place] [address] Jun, [facility] [address] [id number] [address] [place] [address], [place] [address] Jun, [facility] [address] [id number] [address] [place] [address], [place] [address] May, [facility] [address] [id number] [address] [place] [address], [place] [address] May, [facility] [address] [id number] [address] [place] [address], [place] [address] May, [facility] [address] [id number] [address] [place] [address], [place] [address] May, [facility] [address] [id number] [address] [place] [address], [place] [address] Apr, [facility] [address] [id number] [address] [place] [address], [place] [address] Apr, [facility] [address] [id number] [address] [place] [address], [place] [address] Apr, [facility] [address] [id number] [address] [place] [address], [place] [address] Apr, [facility] [address] [id number] [address] [place] [address], [place] [address] 20 Apr, 2012 [facility] [address] [id number] [address] [place] [address], [place] [address] 14 Apr, 2012 [facility] [address] [id number] [address] [place] [address], [place] [address] 14 Apr, 2012 [facility] [address] [id number] [address] [place] [address], [place] [address] Apr, [facility] [address] [id number] [address] [place] [address], [place] [address] Apr, [facility] [address] [id number] [address] [place] [address], [place] [address] 15 Mar, 2012 [facility] [address] [id number] [address] [place] [address], [place] [address] Mar, [facility] [address] [id number] [address] [place] [address], [place] [address] 05 Feb, 2012 [facility] [address] [id number] [address] [place] [address], [place] [address] Jan, [facility] [address] [id number] [address] [place] [address], [place] [address] Jan, [facility] [address] [id number] [address] [place] [address], [place] [address] Dec, [facility] [address] [id number] [address] [place] [address], [place] [address] Nov, [facility] [address] [id number] [address] [place] [address], [place] [address] Nov, [facility] [address] [id number] [address] [place] [address], [place] [address] October, [facility] [address] [id number] [address] [place] [address], [place] [address] October, [facility] [address] [id number] [address] [place] [address], [place] [address] Sep, [facility] [address] [id number] [address] [place] [address], [place] [address] Sep, [facility] [address] [id number] [address] [place] [address], [place] [address] May, [facility] [address] [id number] [address] [place] [address], [place] [address] Apr, [facility] [address] [id number] [address] [place] [address], [place] [address] Apr, [facility] [address] [id number] [address] [place] [address], [place] [address] Apr, [facility] [address] [id number] [address] [place] [address], [place] [address] Apr, [facility] [address] [id number] [address] [place] [address], [place] [address] Apr, [facility] [address] [id number] [address] [place] [address], [place] [address] Apr, [facility] [address] [id number] [address] [place] [address], [place] [address] Apr, [facility] [address] [id number] [address] [place] [address], [place] [address] Apr, [facility] [address] [id number] [address] [place] [address], [place] [address] Mar, [facility] [address] [id number] [address] [place] [address], [place] [address] Mar, [facility] [address] [id number] [address] [place] [address], [place] [address] Mar, [facility] [address] [id number] [address] [address] Mar, [facility] [place] [address] [facility] [id number] [address] [place] [address] Mar, [facility] [place] [address] [facility] [id number] [address] [place] [address] Mar, IMMUNIZATIONS No Known Immunizations SOCIAL HISTORY Never Assessed REASON FOR VISIT PLAN OF CARE VITAL SIGNS Height 62 in 2012-11-15 Weight 219 lbs 2012-11-15 Temperature 97.4 degrees Fahrenheit 2012-11-15 Heart Rate 72 bpm 2012-11-15 Respiratory Rate 16 2012-11-15 Blood pressure systolic 140 mmHg 2012-11-15 Blood pressure diastolic 94 mmHg 2012-11-15 MEDICATIONS Unknown Medications RESULTS No Results PROCEDURES Procedure Date Ordered Result Body Site MAMMOGRAM, SCREENING November 15, 2012 [facility] TRACH, DNA, AMP PROBE November 15, 2012 URINE CULTURE/COLONY COUNT November 15, 2012 CULTURE, BACTERIA, OTHER November 15, 2012 URINALYSIS, AUTO, W/O SCOPE November 15, 2012 INSTRUCTIONS MEDICATIONS ADMINISTERED No Known Medications MEDICAL (GENERAL) HISTORY Type Description Date Medical History HTN Medical History Depression Medical History Arthritis Medical History COPD Surgical History Breast lump removed Surgical History Removal of cyst from ovary Surgical History cholecystectomy Surgical History Stomach surgeryx3 Surgical History tubal ligation Hospitalization History Mental floor at [facility]
--- OUTSIDE RECORDS SUMMARY | 2019-12-24 19:38 | XMS REPORT ---
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 Name Role Phone SURESH ANDRADE Unavailable PROBLEMS Type Condition ICD9-CM Code UHF03-[place] Code Onset Dates Condition S tatus SNOMED Code Problem Unspecified epilepsy without mention of intractable ep ilepsy G40.909 Active 63167756 Problem Hypertension I10 Active 8495039 3 Problem Other chronic pain G89.29 Active 1 05855781 Problem Rheumatoid arthritis M06.9 Active 70461282 Problem Hyperlipidemia, unspecified E78.5 Ac tive 23734850 Problem Depressive disorder F32.9 Active 82603613 Problem Esophageal reflux K21.9 Active 23 2332295 Problem Carpal tunnel syndrome of left wrist G56.02 Active 252432977160543 Problem Presbyopia H52.4 Active 50386168 Problem Cough R05 Active 56934448 Problem Nondependent 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 Ac tive 321419910 Problem Unspecified open-angle glaucoma, stage unspecified H40.10X0 Feb, Active 72121614 Problem Anxiety disorder, unspecified F41.9 Active 849918468 Problem Insomnia G47.00 Active 974276208 Problem Neuropathy G62.9 Active 494648060 Problem Thyroid nodule E04.1 Active 26935 5005 Problem Multinodular goiter E04.2 Active 978360144 Problem Chronic tension-type headache, intractable G44.221 Active 453160352 Problem Acquired hypothyroidism E03.9 Active 957959999 Problem Goiter E04.9 Active 1869727 Problem Chronic obstructive pulmonary disease, unspecified COPD ty pe J44.9 Active 46675837 Problem Reactive airway disease with out complication, unspecified asthma severity, unspecified whether persistent J45.909 Active 100760784755 Problem BMI 40.0-44.9, adult Z68.41 Active 245869802 Problem Essential hypertension I10 Active 78415818 Problem Right-sided low back pain without sciatica M54.5 Active 422771493 Problem Tension headache G44.209 Active 398 726202 Problem Depression F32.9 Active 07578976 Problem Arthralgia M25.50 Active 79540330 Problem Urge incontinence of urine N39.41 Act chen 59850313 Problem Abnormal laboratory test R89.9 Activ e 022769761 Problem COPD with exacerbation J44.1 Active 291993459 Problem Seasonal allergic rhinitis due to pollen J30.1 Active 42278770 ALLERGIES No Information ENCOUNTERS Encounter Location Date Diagnosis [facility] [address] [facility] [id number] [address] [place] [id number] October, [place] [address] [address] October, Thyroid nodule E04.1 and Mul tinodular goiter E04.2 [place] [address] [address] Sep, Thyroid nodule E04.1 [place] [address] [address] Sep, [facility] [address] [address] Sep, Counseled by nurse Z71.9 and Thyroid nodule E04.1 [place] [address] [address] Sep, Acquired hypothyroidism E03. 9 ; Tension headache G44.209 ; Essential hypertension I10 ; Multinodular goiter E04.2 and BMI 40.0-44.9, adult Z68.41 [facility] [address] [place] [id number] [address] [place] [address] Aug, Pelvic pain R10.2 ; Other sp ecified bacterial agents as the cause of diseases classified elsewhere B96.89 and Acute vaginitis N76.0 [place] [address] [address] Apr, Bronchitis J40 [place] [address] [address] Apr, Acute gastritis without hemo rrhage, unspecified gastritis type K29.00 [place] [address] [address] Mar, [place] [address] [address] Feb, [place] [address] [address] Feb, Mass of right side of neck R 22.1 and Multinodular goiter E04.2 [facility] [address] [address] Jan, Bronchitis J40 [place] [address] [address] October, Acquired hypothyroidism E03. 9 [place] [address] [address] October, Acute gastritis without hemo rrhage, unspecified gastritis type K29.00 ; Epigastric pain R10.13 ; Essential hypertension I10 ; Screening for colon cancer Z12.11 and BMI 40.0-44.9, adult Z68.41 [place] [address] [address] October, [facility] [place] [address] [address] October, Chest pain R07.9 and Morbid obesity E66.01 [facility] [address] [address] Sep, Generalized abdominal pain R 10.84 ; Morbid obesity E66.01 ; Non-intractable vomiting with nausea, unspecified vomiting type R11.2 and Seasonal allergic rhinitis due to pollen J30.1 [facility] [place] [address] [address] Jul, COPD with exacerbation J44.1 ; Viral upper respiratory tract infection J06.9 and Morbid obesity E66.01 [facility] [address] [place] [id number] [address] [place] [address] Jun, Viral upper respiratory trac t infection J06.9 [facility] [address] [place] [id number] [address] [place] [address] Apr, Abnormal laboratory test R89 .9 [facility] [address] [place] [id number] [address] [place] [address] Apr, Abnormal laboratory test R89 .9 [place] [address] [place] [id number] [place] [address] Apr, Abnormal laboratory test R89 .9 [place] [address] [place] [id number] [address] [place] [address] Apr, [place] [address] [address] Apr, [place] [address] [address] Apr, Nonintractable episodic head ache, unspecified headache type R51 ; Urge incontinence of urine N39.41 ; BMI 40.0-44.9, adult Z68.41 ; Myalgia M79.10 and Acute cystitis without hematuria N30.00 [place] [address] [address] Mar, Nasal congestion R09.81 ; Lo w back pain M54.5 ; Reactive airway disease without complication, unspecified asthma severity, unspecified whether persistent J45.909 ; Other chronic pain G89.29 ; Acute cystitis with hematuria N30.01 and BMI 40.0-44.9, adult Z68.41 [facility] [address] [place] [id number] [address] [place] [address] Mar, Acute cystitis with hematuri a N30.01 [facility] [address] [address] 25 Mar, 2018 BMI 40.0-44.9, adult Z68.41 ; Acute cystitis with hematuria N30.01 ; Acute bilateral low back pain without sciatica M54.5 and Nausea R11.0 [place] [address] [address] 17 Mar, 2018 Hypertension I10 ; Acquired hypothyroidism E03.9 ; Esophageal reflux K21.9 ; Chronic obstructive pulmonary disease, unspecified COPD type J44.9 and BMI 40.0-44.9, adult Z68.41 [place] [address] [address] 15 Mar, 2018 Hypertension I10 [place] [address] [address] Nov, Hyperlipidemia, unspecified E78.[address] [address] October, Chest pain, unspecified type R07.9 and Acquired hypothyroidism E03.9 [place] [address] [address] October, Chest pain, unspecified type R07.9 ; Family history of coronary artery disease Z82.49 ; Carpal tunnel syndrome of left wrist G56.02 ; Hypertension I10 ; Esophageal reflux K21.9 ; Arthralgia M25.50 ; Acquired hypothyroidism E03.9 ; Cough R05 ; Nausea R11.0 ; Weight gain R63.5 and BMI 45.0-49.9, adult Z68.42 [place] [address] [address] Jun, Acquired hypothyroidism E03. 9 and Cough R05 [place] [address] [address] May, [place] [address] [address] Feb, Tarsal tunnel syndrome of timi th lower extremities G57.53 and Neuropathy G62.9 [facility] [address] [facility] [id number] [address] [place] [address] Dec, Pleuritis R09.1 [facility] [address] [facility] [id number] [address] [place] [address] Nov, [facility] [address] [facility] [id number] [address] [place] [address] October, Arthralgia, unspecified join t M25.50 and Allergy, initial encounter T78.40XA [facility] [address] [facility] [id number] [address] [place] [address] October, [place] [address] [place] [id number] [address] [place] [address] October, Acute recurrent maxillary si nusitis J01.01 and Arthralgia M25.50 [place] [address] [place] [id number] [address] [place] [address] Sep, Pharyngitis due to other org anism J02.8 [place] [address] [facility] [id number] [address] [place] [address] Aug, Acute nasopharyngitis J00 [place] [address] [facility] [id number] [address] [place] [address] Aug, Multinodular goiter E04.2 [place] [address] [facility] [id number] [address] [place] [address] Aug, Thyroid nodule E04.1 [place] [address] [facility] [id number] [address] [place] [address] Jul, Tarsal tunnel syndrome of timi th lower extremities G57.53 [place] [address] [facility] [id number] [address] [place] [address] Jun, Pneumonia due to infectious organism, unspecified laterality, unspecified part of lung J18.9 [place] [address] [facility] [id number] [place] [address] Jun, Bronchospasm with bronchitis , acute J20.9 [place] [address] [address] May, Acute non-recurrent frontal sinusitis J01.10 [place] [address] [address] May, Flat foot [pes planus] (acqu ired), left foot M21.42 ; Flat foot [pes planus] (acquired), right foot M21.41 and Neuropathy G62.9 [place] [address] [address] Apr, Chronic tension-type headach e, intractable G44.221 ; Right lower quadrant abdominal pain R10.31 ; Cervicalgia M54.2 ; Acute gastritis without hemorrhage, unspecified gastritis type K29.00 and Hypertension I10 [place] [address] [address] Mar, Depression F32.9 and Anxiety disorder, unspecified F41.9 [place] [address] [address] Feb, Depressive disorder F32.9 an d Anxiety disorder, unspecified F41.9 [place] [address] [address] Jan, Dysuria R30.0 ; Lower abdomi nal pain R10.30 ; Acute bilateral low back pain without sciatica M54.5 ; Nausea and vomiting, unspecified intactability, vomiting of unspecified type R11.2 ; Pain in right foot M79.671 and Pain of left foot M79.672 [place] [address] [address] Dec, Urinary tract infection, sit e not specified N39.0 [place] [address] [address] Dec, [place] [address] [place] [id number] [place] [address] 07 Nov, 2015 [place] [address] [address] Nov, Dysuria R30.0 [place] [address] [address] Nov, Dysuria R30.0 and Acute cyst itis with hematuria N30.01 [place] [address] [address] October, Nausea R11.0 [place] [address] [address] October, Thyroid nodule E04.1 ; Carpa l tunnel syndrome, left upper limb G56.02 ; Carpal tunnel syndrome, right upper limb G56.01 and Constipation, unspecified constipation type K59.00 [place] [address] [address] October, [place] [address] [address] October, Thyroid nodule E04.1 [place] [address] [address] October, Cold thyroid nodule E04.1 [place] [address] [address] October, [place] [address] [address] Sep, Thyroid nodule E04.1 [place] [address] [address] Sep, Thyroid nodule E04.1 [place] [address] [place] [id number] [place] [address] Sep, Thyroid nodule E04.1 ; Hyper tension I10 ; Esophageal reflux K21.9 and Hyperlipidemia, unspecified E78.5 [facility] [address] [place] [id number] [place] [address] 14 Aug, 2015 Other chronic pain G89.29 ; Sinusitis J32.9 and Hypertension I10 [facility] [address] [place] [id number] [address] [place] [address] 29 Jul, 2015 [place] [address] [address] 15 Jul, 2015 [facility] [address] [address] 10 Jul, 2015 Insomnia G47.00 and Arthralg ia M25.50 [place] [address] [address] 10 Jul, 2015 Depressive disorder F32.9 an d Anxiety disorder, unspecified F41.9 [place] [address] [address] May, Right-sided low back pain wi thout sciatica M54.5 and Depression F32.9 [place] [address] [address] Apr, Hematuria R31.9 [place] [address] [address] Mar, Other chronic pain G89.29 [place] [address] [address] Mar, Other chronic pain G89.29 [place] [address] [place] [id number] [place] [address] Feb, [place] [address] [address] 22 Feb, 2015 Other chronic pain 338.29 ; Dysuria 788.1 ; UTI (urinary tract infection) 599.0 ; Insomnia 780.52 ; Hot flashes 627.2 and Hypertension 401.9 [place] [address] [place] [id number] [place] [address] Feb, Dysuria 788.1 [facility] [address] [facility] [id number] [address] [place] [address] Feb, [facility] [address] [facility] [id number] [address] [place] [address] Jan, [facility] [address] [facility] [id number] [address] [place] [address] Jan, [facility] [address] [facility] [id number] [address] [place] [address] Jan, Fibromyalgia 729.1 ; Hyperte nsion 401.9 ; Dysthymia 300.4 and Hot flashes 627.2 [facility] [address] [facility] [id number] [address] [place] [address] Dec, [facility] [address] [facility] [id number] [address] [place] [address] Dec, [facility] [address] [id number] [address] [place] [address] Dec, [facility] [address] [facility] [id number] [address] [place] [address] Nov, Other chronic pain 338.29 [facility] [address] [id number] [address] [place] [address] October, [facility] [address] [facility] [id number] [address] [place] [address] October, [facility] [address] [facility] [id number] [address] [place] [address] Sep, [facility] [address] [facility] [id number] [address] [place] [address] Sep, [facility] [address] [facility] [id number] [address] [place] [address] Aug, [facility] [address] [facility] [id number] [address] [place] [address] Aug, [facility] [address] [id number] [facility] [place] [address] Aug, [facility] [address] [id number] [address] [place] [address], [place] [address] Aug, [facility] [address] [id number] [address] [place] [address], [place] [address] Aug, [facility] [address] [id number] [address] [place] [address], [place] [address] Aug, [facility] [address] [id number] [address] [place] [address], [place] [address] Aug, [facility] [address] [id number] [address] [place] [address], [place] [address] Aug, [facility] [address] [id number] [address] [place] [address], [place] [address] Aug, [facility] [address] [id number] [address] [place] [address], [place] [address] Aug, [facility] [address] [id number] [address] [place] [address], [place] [address] Aug, [facility] [address] [id number] [address] [place] [address], [place] [address] Aug, [facility] [address] [id number] [address] [place] [address], [place] [address] Aug, [facility] [address] [id number] [address] [place] [address], [place] [address] Aug, [facility] [address] [id number] [address] [place] [address], [place] [address] Jul, [facility] [address] [id number] [address] [place] [address], [place] [address] Jul, [facility] [address] [id number] [address] [place] [address], [place] [address] Jul, [facility] [address] [id number] [address] [place] [address], [place] [address] Jul, [facility] [address] [id number] [address] [place] [address], [place] [address] Jul, [facility] [address] [id number] [address] [place] [address], [place] [address] Jul, [facility] [address] [id number] [address] [place] [address], [place] [address] Jun, [facility] [address] [id number] [address] [place] [address], [place] [address] Jun, [facility] [address] [id number] [address] [place] [address], [place] [address] Jun, [facility] [address] [id number] [address] [place] [address], [place] [address] Jun, [facility] [address] [id number] [address] [place] [address], [place] [address] May, [facility] [address] [id number] [address] [place] [address], [place] [address] May, [facility] [address] [id number] [address] [place] [address], [place] [address] May, [facility] [address] [id number] [address] [place] [address], [place] [address] May, [facility] [address] [id number] [address] [place] [address], [place] [address] May, [facility] [address] [id number] [address] [place] [address], [place] [address] May, [facility] [address] [id number] [address] [place] [address], [place] [address] May, [facility] [address] [id number] [address] [place] [address], [place] [address] May, [facility] [address] [id number] [address] [place] [address] [address] May, [facility] [address] [id number] [address] [place] [address], [place] [address] May, [facility] [address] [id number] [address] [place] [address], [place] [address] Apr, [facility] [address] [id number] [address] [place] [address], [place] [address] Apr, [facility] [address] [id number] [address] [place] [address], [place] [address] Apr, [facility] [address] [id number] [address] [place] [address], [place] [address] Apr, [facility] [address] [id number] [address] [place] [address], [place] [address] Apr, [facility] [address] [id number] [address] [place] [address], [place] [address] Apr, [facility] [address] [id number] [address] [place] [address], [place] [address] Apr, [facility] [address] [id number] [address] [place] [address], [place] [address] Apr, [facility] [address] [id number] [address] [place] [address], [place] [address] Apr, [facility] [address] [id number] [address] [place] [address], [place] [address] Mar, [facility] [address] [id number] [address] [place] [address] Mar, [facility] [address] [id number] [address] [place] [address], [place] [address] Mar, [facility] [address] [id number] [address] [place] [address], [place] [address] Mar, [facility] [address] [id number] [address] [place] [address], [place] [address] Mar, [facility] [address] [id number] [address] [place] [address], [place] [address] 08 Mar, 2013 [facility] [address] [id number] [address] [place] [address], [place] [address] 08 Mar, 2013 [facility] [address] [id number] [address] [place] [address], [place] [address] 08 Mar, 2013 [facility] [address] [id number] [address] [place] [address], [place] [address] 30 Sep, 2013 [facility] [address] [id number] [address] [place] [address], [place] [address] 30 Sep, 2013 [facility] [address] [id number] [address] [place] [address], [place] [address] 24 Sep, 2013 [facility] [address] [id number] [address] [place] [address], [place] [address] 24 Sep, 2013 [facility] [address] [id number] [address] [place] [address], [place] [address] 22 Feb, 2013 [facility] [address] [id number] [address] [place] [address], [place] [address] 22 Sep, 2013 [facility] [address] [id number] [address] [place] [address], [place] [address] 10 Feb, 2013 [facility] [address] [id number] [address] [place] [address], [place] [address] 10 Sep, 2013 [facility] [address] [id number] [address] [place] [address], [place] [address] 03 Sep, 2013 [facility] [address] [id number] [address] [place] [address], [place] [address] 03 Sep, 2013 [facility] [address] [id number] [address] [place] [address], [place] [address] 03 Sep, 2013 [facility] [address] [id number] [address] [place] [address], [place] [address] 03 Sep, 2013 [facility] [address] [id number] [address] [place] [address], [place] [address] Feb, [facility] [address] [id number] [address] [place] [address], [place] [address] Feb, [facility] [address] [id number] [address] [place] [address], [place] [address] Jan, [facility] [address] [id number] [address] [place] [address], [place] [address] Jan, [facility] [address] [id number] [address] [place] [address], [place] [address] Dec, [facility] [address] [id number] [address] [place] [address], [place] [address] Dec, [facility] [address] [id number] [address] [place] [address], [place] [address] Dec, [facility] [address] [id number] [address] [place] [address], [place] [address] Dec, [facility] [address] [id number] [address] [place] [address], [place] [id number] Dec, [facility] [address] [id number] [address] [place] [address], [place] [address] Dec, [facility] [address] [id number] [address] [place] [address], [place] [address] Dec, [facility] [address] [id number] [address] [place] [address], [place] [address] Dec, [facility] [address] [id number] [address] [place] [address], [place] [address] Dec, [facility] [address] [id number] [address] [place] [address], [place] [address] Dec, [facility] [address] [id number] [address] [place] [address], [place] [address] Dec, [facility] [address] [id number] [address] [place] [address], [place] [address] Dec, [facility] [address] [id number] [address] [place] [address], [place] [address] Dec, 2013 [facility] [address] [id number] [address] [place] [address], [place] [address] Dec, 2013 [facility] [address] [id number] [address] [place] [address], [place] [address] Dec, 2013 [facility] [address] [id number] [address] [place] [address], [place] [address] Dec, 2013 [facility] [address] [id number] 20 [place] [address], [place] [address] Dec, 2013 [facility] [address] [id number] [address] [place] [address], [place] [address] Dec, [facility] [address] [id number] [address] [place] [address], [place] [address] Dec, [facility] [address] [id number] [address] [place] [address], [place] [address] Nov, [facility] [address] [id number] [address] [place] [address], [place] [address] Nov, [facility] [address] [id number] [address] [place] [address], [place] [address] Nov, [facility] [address] [id number] [address] [place] [address], [place] [address] Nov, [facility] [address] [id number] [address] [place] [address], [place] [address] Nov, [facility] [address] [id number] [address] [place] [address], [place] [address] Nov, [facility] [address] [id number] [address] [place] [address], [place] [address] Nov, [facility] [address] [id number] [address] [place] [address], [place] [address] Nov, [facility] [address] [id number] [address] [place] [address], [place] [address] Nov, [facility] [address] [id number] [facility] [place] [address] October, [facility] [place] [address] [id number] [address] [place] [address], [place] [address] October, [facility] [address] [id number] [address] [place] [address], [place] [address] October, [facility] [address] [id number] [address] [place] [address], [place] [address] October, [facility] [place] [address] [id number] [address] [place] [address], [place] [address] October, [facility] [place] [address] [id number] [address] [place] [address], [place] [address] October, [facility] [address] [id number] [address] [place] [address], [place] [address] October, [facility] [address] [id number] [address] [place] [address], [place] [address] October, [facility] [address] [id number] [address] [place] [address], [place] [address] Sep, [facility] [place] [address] [id number] [address] [place] [address], [place] [address] Sep, [facility] [address] [id number] [address] [place] [address], [place] [address] Sep, [facility] [place] [address] [id number] [address] [place] [address], [place] [address] Sep, [facility] [address] [id number] [address] [place] [address], [place] [address] Sep, [facility] [address] [id number] [address] [place] [address], [place] [address] Sep, [facility] [address] [id number] [address] [place] [address], [place] [address] Sep, [facility] [address] [id number] [address] [place] [address], [place] [address] Aug, [facility] [address] [id number] [address] [place] [address], [place] [address] Aug, [facility] [address] [id number] [address] [place] [address], [place] [address] Aug, [facility] [address] [id number] [address] [place] [address], [place] [address] Aug, [facility] [address] [id number] [address] [place] [address], [place] [address] Aug, [facility] [address] [id number] [address] [place] [address], [place] [address] Aug, [facility] [address] [id number] [address] [place] [address], [place] [address] Jul, [facility] [address] [id number] [address] [place] [address], [place] [address] Jul, [facility] [address] [id number] [address] [place] [address], [place] [address] Jul, [facility] [address] [id number] [address] [place] [address], [place] [address] Jul, [facility] [address] [id number] [address] [place] [address], [place] [address] Jul, [facility] [address] [id number] [address] [place] [address], [place] [address] Jul, [facility] [address] [id number] [address] [place] [address], [place] [address] Jun, [facility] [address] [id number] [address] [place] [address], [place] [address] Jun, [facility] [address] [id number] [address] [place] [address], [place] [address] Jun, [facility] [address] [id number] [address] [place] [address], [place] [address] Jun, [facility] [address] [id number] [address] [place] [address], [place] [address] Jun, [facility] [place] [address] [id number] [address] [place] [address], [place] [address] Jun, [facility] [address] [id number] [address] [place] [address], [place] [address] Jun, [facility] [address] [id number] [address] [place] [address], [place] [address] Jun, [facility] [address] [id number] [address] [place] [address], [place] [address] Jun, [facility] [address] [id number] [address] [place] [address], [place] [address] Jun, [facility] [address] [id number] [address] [place] [address], [place] [address] Jun, [facility] [address] [id number] [address] [place] [address], [place] [address] Jun, [facility] [place] [address] [id number] [address] [place] [address], [place] [address] Jun, [facility] [place] [address] [id number] [address] [place] [address], [place] [address] 30 May, 2013 [facility] [address] [id number] [address] [place] [address], [place] [address] 30 May, 2013 [facility] [address] [id number] [address] [place] [address], [place] [address] 30 May, 2013 [facility] [address] [id number] [address] [place] [address], [place] [address] 30 May, 2013 [facility] [address] [id number] [address] [place] [address], [place] [address] May, [facility] [address] [id number] [address] [place] [address], [place] [address] 14 May, 2013 [facility] [address] [id number] [address] [place] [address], [place] [address] 14 May, 2013 [facility] [address] [id number] [address] [place] [address], [place] [address] 12 May, 2013 [facility] [address] [id number] [address] [place] [address], [place] [address] May, [facility] [address] [id number] [address] [place] [address], [place] [address] May, [facility] [address] [id number] [address] [place] [address], [place] [address] May, [facility] [address] [id number] [address] [place] [address], [place] [address] May, [facility] [place] [address] [id number] [address] [place] [address], [place] [address] May, [facility] [address] [id number] [address] [place] [address], [place] [address] May, [facility] [address] [id number] [address] [place] [address], [place] [address] May, [facility] [address] [id number] [address] [place] [address], [place] [address] May, [facility] [address] [id number] [address] [place] [address], [place] [address] May, [facility] [address] [id number] [address] [place] [address], [place] [address] May, [facility] [address] [id number] [address] [place] [address], [place] [address] May, [facility] [address] [id number] [address] [place] [address], [place] [address] May, [facility] [address] [id number] [address] [place] [address], [place] [address] May, [facility] [address] [id number] [address] [place] [address], [place] [address] Apr, [facility] [address] [id number] [address] [place] [address], [place] [address] Apr, [facility] [address] [id number] [address] [place] [address], [place] [address] Apr, [facility] [address] [id number] [address] [place] [address], [place] [address] Apr, [facility] [address] [id number] [address] [place] [address], [place] [address] Mar, [facility] [address] [id number] [address] [place] [address], [place] [address] 23 Feb, 2013 [facility] [address] [id number] [address] [place] [address], [place] [address] 16 Feb, 2013 [facility] [address] [id number] [address] [place] [address], [place] [address] 13 Feb, 2013 [facility] [address] [id number] [address] [place] [address], [place] [address] 10 Feb, 2013 [facility] [address] [id number] [address] [place] [address], [place] [address] Feb, [facility] [address] [id number] [address] [place] [address], [place] [address] Feb, [facility] [address] [id number] [address] [place] [address], [place] [address] Jan, [facility] [address] [id number] [address] [place] [address], [place] [address] Jan, [facility] [address] [id number] [address] [place] [address], [place] [address] Jan, [facility] [address] [id number] [address] [place] [address], [place] [address] Dec, [facility] [address] [id number] [address] [place] [address], [place] [address] Dec, [facility] [address] [id number] [address] [place] [address], [place] [address] Dec, [facility] [address] [id number] [address] [place] [address], [place] [address] 15 Dec, 2012 [facility] [place] [address] [id number] [address] [place] [address], [place] [address] Dec, [facility] [place] [address] [id number] [address] [place] [address], [place] [address] Nov, [facility] [place] [address] [id number] [address] [place] [address], [place] [address] Nov, [facility] [address] [id number] [address] [place] [address], [place] [address] Nov, [facility] [place] [address] [id number] [address] [place] [address], [place] [address] Nov, [facility] [place] [address] [id number] [address] [place] [address], [place] [address] Nov, [facility] [place] [address] [id number] [address] [place] [address], [place] [address] 08 Nov, 2012 [facility] [address] [id number] [address] [place] [address], [place] [address] 07 Nov, 2012 [facility] [place] [address] [id number] [address] [place] [address], [place] [address] 06 Nov, 2012 [facility] [address] [id number] [address] [place] [address], [place] [address] 05 Nov, 2012 [facility] [address] [id number] [address] [place] [address], [place] [address] Nov, [facility] [address] [id number] [address] [place] [address], [place] [address] October, [facility] [address] [id number] [address] [place] [address], [place] [address] October, [facility] [address] [id number] [address] [place] [address], [place] [address] Sep, [facility] [address] [id number] [address] [place] [address], [place] [address] 08 Sep, 2012 [facility] [place] [address] [id number] [address] [place] [address], [place] [address] 08 Sep, 2012 [facility] [address] [id number] [address] [place] [address], [place] [address] Sep, [facility] [address] [id number] [address] [place] [address], [place] [address] Sep, [facility] [address] [id number] [address] [place] [address], [place] [address] Aug, [facility] [address] [id number] [address] [place] [address], [place] [address] Aug, [facility] [address] [id number] [address] [place] [address], [place] [address] Jul, [facility] [address] [id number] [address] [place] [address], [place] [address] Jul, [facility] [address] [id number] [address] [place] [address], [place] [address] Jun, [facility] [place] [address] [id number] [address] [place] [address], [place] [address] Jun, [facility] [place] [address] [id number] [address] [place] [address], [place] [address] May, [facility] [address] [id number] [address] [place] [address], [place] [address] May, [facility] [address] [id number] [address] [place] [address], [place] [address] May, [facility] [address] [id number] [address] [place] [address], [place] [address] May, [facility] [address] [id number] [address] [place] [address], [place] [address] Apr, [facility] [address] [id number] [address] [place] [address], [place] [address] Apr, [facility] [address] [id number] [address] [place] [address], [place] [address] Apr, [facility] [address] [id number] [address] [place] [address], [place] [address] Apr, [facility] [address] [id number] [address] [place] [address], [place] [address] 20 Apr, 2012 [facility] [address] [id number] [address] [place] [address], [place] [address] 14 Apr, 2012 [facility] [address] [id number] [address] [place] [address], [place] [address] 14 Apr, 2012 [facility] [address] [id number] [address] [place] [address], [place] [address] Apr, [facility] [address] [id number] [address] [place] [address], [place] [address] Apr, [facility] [address] [id number] [address] [place] [address], [place] [address] 15 Mar, 2012 [facility] [address] [id number] [address] [place] [address], [place] [address] Mar, [facility] [address] [id number] [address] [place] [address], [place] [address] 05 Feb, 2012 [facility] [address] [id number] [address] [place] [address], [place] [address] Jan, [facility] [address] [id number] [address] [place] [address], [place] [address] Jan, [facility] [address] [id number] [address] [place] [address], [place] [address] Dec, [facility] [address] [id number] [address] [place] [address], [place] [address] Nov, [facility] [address] [id number] [address] [place] [address], [place] [address] Nov, [facility] [address] [id number] [address] [place] [address], [place] [address] October, [facility] [address] [id number] [address] [place] [address], [place] [address] October, [facility] [address] [id number] [address] [place] [address], [place] [address] Sep, [facility] [address] [id number] [address] [place] [address], [place] [address] Sep, [facility] [address] [id number] [address] [place] [address], [place] [address] May, [facility] [address] [id number] [address] [place] [address], [place] [address] Apr, [facility] [address] [id number] [address] [place] [address], [place] [address] Apr, [facility] [address] [id number] [address] [place] [address], [place] [address] Apr, [facility] [address] [id number] [address] [place] [address], [place] [address] Apr, [facility] [address] [id number] [address] [place] [address], [place] [address] Apr, [facility] [address] [id number] [address] [place] [address], [place] [address] Apr, [facility] [address] [id number] [address] [place] [address], [place] [address] Apr, [facility] [address] [id number] [address] [place] [address], [place] [address] Apr, [facility] [address] [id number] [address] [place] [address], [place] [address] Mar, [facility] [address] [id number] [address] [place] [address], [place] [address] Mar, [facility] [address] [id number] [address] [place] [address], [place] [address] Mar, [facility] [address] [id number] [address] [address] Mar, [facility] [address] [facility] [id number] [address] [place] [address] Mar, [facility] [address] [facility] [id number] [address] [place] [address] Mar, IMMUNIZATIONS No Known Immunizations SOCIAL HISTORY [...] tubal ligation Hospitalization History Mental floor at [facility]
--- OUTSIDE RECORDS SUMMARY | 2019-12-24 19:38 | XMS REPORT ---
Author Author Deann Trey Doctor Organization [facility] Address Unknown Phone Unavailable Care Team Providers Care Apns Name Role Phone Migration, Doctor Unavailable Unavailable PROBLEMS Type Condition ICD9-CM Code [id number] Code Onset Dates Condition S tatus SNOMED Code Problem Unspecified epilepsy without mention of intractable ep ilepsy G40.909 Active 38439299 Problem Hypertension I10 Active 5049808 3 Problem Other chronic pain G89.29 Active 1 19108844 Problem Rheumatoid arthritis M06.9 Active 22076356 Problem Hyperlipidemia, unspecified E78.5 Ac tive 08830656 Problem Depressive disorder F32.9 Active 14545156 Problem Esophageal reflux K21.9 Active 23 0647146 Problem Carpal tunnel syndrome of left wrist G56.02 Active 930643762038573 Problem Presbyopia H52.4 Active 59169238 Problem Cough R05 Active 75239613 Problem Nondependent 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 Ac tive 221370007 Problem Unspecified open-angle glaucoma, stage unspecified H40.10X0 Feb, Active 25540605 Problem Anxiety disorder, unspecified F41.9 Active 880954837 Problem Insomnia G47.00 Active 387281227 Problem Neuropathy G62.9 Active 497683046 Problem Thyroid nodule E04.1 Active 36769 5005 Problem Multinodular goiter E04.2 Active 540645613 Problem Chronic tension-type headache, intractable G44.221 Active 361936433 Problem Acquired hypothyroidism E03.9 Active 034091376 Problem Goiter E04.9 Active 0101295 Problem Chronic obstructive pulmonary disease, unspecified COPD ty pe J44.9 Active 05469878 Problem Reactive airway disease with out complication, unspecified asthma severity, unspecified whether persistent J45.909 Active 779067342799 Problem BMI 40.0-44.9, adult Z68.41 Active 882039020 Problem Essential hypertension I10 Active 70256199 Problem Right-sided low back pain without sciatica M54.5 Active 135099283 Problem Tension headache G44.209 Active 398 716279 Problem Depression F32.9 Active 57656390 Problem Arthralgia M25.50 Active 84981012 Problem Urge incontinence of urine N39.41 Act chen 42281637 Problem Abnormal laboratory test R89.9 Activ e 662434157 Problem COPD with exacerbation J44.1 Active 783645353 Problem Seasonal allergic rhinitis due to pollen J30.1 Active 43449484 ALLERGIES No Information ENCOUNTERS Encounter Location Date Diagnosis [facility] [address] [place] [id number] [place] [id number] October, [place] [address] [address] October, Thyroid nodule E04.1 and Mul tinodular goiter E04.2 [place] [address] [address] Sep, Thyroid nodule E04.1 [place] [address] [address] Sep, [place] [address] [address] Sep, Counseled by nurse Z71.9 and Thyroid nodule E04.1 [place] [address] [address] Sep, Acquired hypothyroidism E03. 9 ; Tension headache G44.209 ; Essential hypertension I10 ; Multinodular goiter E04.2 and BMI 40.0-44.9, adult Z68.41 [place] [address] [address] Aug, Pelvic pain R10.2 ; Other sp ecified bacterial agents as the cause of diseases classified elsewhere B96.89 and Acute vaginitis N76.0 [place] [address] [address] Apr, Bronchitis J40 [place] [address] [address] Apr, Acute gastritis without hemo rrhage, unspecified gastritis type K29.00 [place] [address] [place] [id number] [address] [place] [address] Mar, [place] [address] [place] [id number] [address] [place] [address] Feb, [place] [address] [place] [id number] [place] [address] Feb, Mass of right side of neck R 22.1 and Multinodular goiter E04.2 [facility] [place] [address] [address] Jan, Bronchitis J40 [place] [address] [address] October, Acquired hypothyroidism E03. 9 [place] [address] [address] October, Acute gastritis without hemo rrhage, unspecified gastritis type K29.00 ; Epigastric pain R10.13 ; Essential hypertension I10 ; Screening for colon cancer Z12.11 and BMI 40.0-44.9, adult Z68.41 [place] [address] [address] October, [facility] [place] [address] [address] October, Chest pain R07.9 and Morbid obesity E66.01 [facility] [place] [address] [address] Sep, Generalized abdominal pain R 10.84 ; Morbid obesity E66.01 ; Non-intractable vomiting with nausea, unspecified vomiting type R11.2 and Seasonal allergic rhinitis due to pollen J30.1 [facility] [place] [id number] N [facility] [id number] [address] [place] [address] Jul, COPD with exacerbation J44.1 ; Viral upper respiratory tract infection J06.9 and Morbid obesity E66.01 [facility] [address] [facility] [id number] [address] [place] [address] Jun, Viral upper respiratory trac t infection J06.9 [place] [address] [facility] [id number] [address] [place] [address] Apr, Abnormal laboratory test R89 .9 [place] [address] [facility] [id number] [address] [place] [address] Apr, Abnormal laboratory test R89 .9 [place] [address] [facility] [id number] [address] [place] [address] Apr, Abnormal laboratory test R89 .9 [place] [address] [place] [id number] [address] [place] [address] Apr, [place] [address] [place] [id number] [place] [address] Apr, [place] [address] [address] Apr, Nonintractable episodic head ache, unspecified headache type R51 ; Urge incontinence of urine N39.41 ; BMI 40.0-44.9, adult Z68.41 ; Myalgia M79.10 and Acute cystitis without hematuria N30.00 [place] [address] [place] [id number] [address] [place] [address] Mar, Nasal congestion R09.81 ; Lo w back pain M54.5 ; Reactive airway disease without complication, unspecified asthma severity, unspecified whether persistent J45.909 ; Other chronic pain G89.29 ; Acute cystitis with hematuria N30.01 and BMI 40.0-44.9, adult Z68.41 [place] [address] [address] Mar, Acute cystitis with hematuri a N30.01 [facility] [address] [place] [id number] [address] [place] [address] Mar, BMI 40.0-44.9, adult Z68.41 ; Acute cystitis with hematuria N30.01 ; Acute bilateral low back pain without sciatica M54.5 and Nausea R11.0 [place] [address] [address] 17 Mar, 2018 Hypertension I10 ; Acquired hypothyroidism E03.9 ; Esophageal reflux K21.9 ; Chronic obstructive pulmonary disease, unspecified COPD type J44.9 and BMI 40.0-44.9, adult Z68.41 [place] [address] [address] 15 Mar, 2018 Hy[address]ension I10 [address] [address] Nov, Hyperlipidemia, unspecified E78.[address] [address] October, Chest pain, unspecified type R07.9 and Acquired hypothyroidism E03.9 [place] [address] [address] October, Chest pain, unspecified type R07.9 ; Family history of coronary artery disease Z82.49 ; Carpal tunnel syndrome of left wrist G56.02 ; Hypertension I10 ; Esophageal reflux K21.9 ; Arthralgia M25.50 ; Acquired hypothyroidism E03.9 ; Cough R05 ; Nausea R11.0 ; Weight gain R63.5 and BMI 45.0-49.9, adult Z68.42 [place] [address] [address] Jun, Acquired hypothyroidism E03. 9 and Cough R05 [place] [address] [address] May, [address] [address] Feb, Tarsal tunnel syndrome of timi th lower extremities G57.53 and Neuropathy G62.[address] [address] Dec, Pleuritis R09.1 [place] [address] [place] [id number] [address] [place] [address] Nov, [place] [address] [address] October, Arthralgia, unspecified join t M25.50 and Allergy, initial encounter T78.40XA [place] [address] [address] October, [place] [address] [address] October, Acute recurrent maxillary si nusitis J01.01 and Arthralgia M25.50 [place] [address] [address] Sep, Pharyngitis due to other org anism J02.8 [place] [address] [address] Aug, Acute nasopharyngitis J00 [place] [address] [address] Aug, Multinodular goiter E04.2 [place] [address] [address] Aug, Thyroid nodule E04.1 [place] [address] [place] [id number] [address] [place] [address] Jul, Tarsal tunnel syndrome of timi th lower extremities G57.53 [place] [address] [address] Jun, Pneumonia due to infectious organism, unspecified laterality, unspecified part of lung J18.9 [place] [address] [place] [id number] [address] [place] [address] Jun, Bronchospasm with bronchitis , acute J20.9 [place] [address] [address] May, Acute non-recurrent frontal sinusitis J01.10 [place] [address] [address] May, Flat foot [pes planus] (acqu ired), left foot M21.42 ; Flat foot [pes planus] (acquired), right foot M21.41 and Neuropathy G62.9 [place] [address] [address] Apr, Chronic tension-type headach e, intractable G44.221 ; Right lower quadrant abdominal pain R10.31 ; Cervicalgia M54.2 ; Acute gastritis without hemorrhage, unspecified gastritis type K29.00 and Hypertension I10 [place] [address] [address] Mar, Depression F32.9 and Anxiety disorder, unspecified F41.9 [place] [address] [address] Feb, Depressive disorder F32.9 an d Anxiety disorder, unspecified F41.9 [place] [address] [address] Jan, Dysuria R30.0 ; Lower abdomi nal pain R10.30 ; Acute bilateral low back pain without sciatica M54.5 ; Nausea and vomiting, unspecified intactability, vomiting of unspecified type R11.2 ; Pain in right foot M79.671 and Pain of left foot M79.672 [place] [address] [address] Dec, Urinary tract infection, sit e not specified N39.0 [place] [address] [address] Dec, [place] [address] [address] Nov, [place] [address] [facility] [id number] [address] [place] [address] Nov, Dysuria R30.0 [facility] [address] [place] [id number] [place] [address] Nov, Dysuria R30.0 and Acute cyst itis with hematuria N30.01 [facility] [address] [place] [id number] [address] [place] [address] October, Nausea R11.0 [facility] [address] [place] [id number] [address] [place] [address] October, Thyroid nodule E04.1 ; Carpa l tunnel syndrome, left upper limb G56.02 ; Carpal tunnel syndrome, right upper limb G56.01 and Constipation, unspecified constipation type K59.00 [place] [address] [place] [id number] [address] [place] [address] October, [place] [address] [place] [id number] [address] [place] [address] October, Thyroid nodule E04.1 [place] [address] [place] [id number] [address] [place] [address] October, Cold thyroid nodule E04.1 [facility] [address] [place] [id number] [address] [place] [address] October, [place] [address] [place] [id number] [address] [place] [address] Sep, Thyroid nodule E04.1 [facility] [address] [place] [id number] [address] [place] [address] Sep, Thyroid nodule E04.1 [facility] [address] [place] [id number] [place] [address] Sep, Thyroid nodule E04.1 ; Hyper tension I10 ; Esophageal reflux K21.9 and Hyperlipidemia, unspecified E78.5 [place] [address] [place] [id number] [address] [place] [address] Aug, Other chronic pain G89.29 ; Sinusitis J32.9 and Hypertension I10 [facility] [address] [facility] [id number] [address] [place] [id number] 29 Jul, 2015 [facility] [address] [facility] [id number] [address] [place] [address] 15 Jul, 2015 [facility] [address] [address] 10 Jul, 2015 Insomnia G47.00 and Arthralg ia M25.50 [facility] [address] [place] [id number] [address] [place] [address] 10 Jul, 2015 Depressive disorder F32.9 an d Anxiety disorder, unspecified F41.9 [place] [address] [place] [id number] [address] [place] [address] May, Right-sided low back pain wi thout sciatica M54.5 and Depression F32.9 [facility] [address] [place] [id number] [address] [place] [address] Apr, Hematuria R31.9 [place] [address] [place] [id number] [place] [address] Mar, Other chronic pain G89.29 [facility] [address] [place] [id number] [address] [place] [address] Mar, Other chronic pain G89.29 [facility] [address] [place] [id number] [address] [place] [address] 28 Feb, 2015 [facility] [address] [place] [id number] [address] [place] [address] 22 Feb, 2015 Other chronic pain 338.29 ; Dysuria 788.1 ; UTI (urinary tract infection) 599.0 ; Insomnia 780.52 ; Hot flashes 627.2 and Hypertension 401.9 [facility] [address] [place] [id number] [address] [place] [address] 14 Feb, 2015 Dysuria 788.1 [place] [address] [id number] [address] [place] [address] Feb, [facility] [address] [id number] [address] [place] [phone] Jan, [facility] [address] [id number] [address] [place] [phone] Jan, [facility] [address] [id number] [address] [place] [address] Jan, Fibromyalgia 729.1 ; Hyperte nsion 401.9 ; Dysthymia 300.4 and Hot flashes 627.2 [facility] [address] [id number] [address] [place] [id number] Dec, [facility] [address] [id number] [address] [place] [address] Dec, [facility] [address] [id number] [address] [place] [address] Dec, [facility] [address] [id number] [address] [place] [address] Nov, Other chronic pain 338.29 [facility] [address] [id number] [address] [place] [address] October, [facility] [address] [id number] [address] [place] [phone] October, [facility] [address] [id number] [address] [place] [address] Sep, [facility] [address] [id number] [address] [place] [address] Sep, [facility] [address] [id number] [address] [place] [id number] Aug, [facility] [address] [id number] [address] [place] [address] Aug, [facility] [address] [id number] [address] [place] [address] Aug, [facility] [address] [id number] [address] [place] [address], [place] [address] Aug, [facility] [address] [id number] [address] [place] [address], [place] [address] Aug, [facility] [address] [id number] [address] [place] [address], [place] [address] Aug, [facility] [address] [id number] [address] [place] [address], [place] [address] Aug, [facility] [address] [id number] [address] [place] [address], [place] [address] Aug, [facility] [address] [id number] [address] [place] [address], [place] [address] Aug, [facility] [address] [id number] [address] [place] [address], [place] [address] Aug, [facility] [address] [id number] [address] [place] [address], [place] [address] Aug, [facility] [address] [id number] [address] [place] [address], [place] [address] Aug, [facility] [address] [id number] [address] [place] [address], [place] [address] Aug, [facility] [address] [id number] [address] [place] [address], [place] [address] Aug, [facility] [address] [id number] [address] [place] [address], [place] [address] Jul, [facility] [address] [id number] [address] [place] [address], [place] [address] Jul, [facility] [address] [id number] [address] [place] [address], [place] [address] Jul, [facility] [address] [id number] [address] [place] [address], [place] [address] Jul, [facility] [address] [id number] [address] [place] [address], [place] [address] Jul, [facility] [address] [id number] [address] [place] [address], [place] [address] Jul, [facility] [address] [id number] [address] [place] [address], [place] [address] Jun, [facility] [address] [id number] [address] [place] [address], [place] [address] Jun, [facility] [address] [id number] [address] [place] [address], [place] [address] Jun, [facility] [address] [id number] [address] [place] [address], [place] [address] Jun, [facility] [address] [id number] [address] [place] [address], [place] [address] May, [facility] [address] [id number] [address] [place] [address], [place] [address] May, [facility] [address] [id number] [address] [place] [address], [place] [address] May, [facility] [address] [id number] [address] [place] [address], [place] [address] May, [facility] [address] [id number] [address] [place] [address], [place] [address] May, [facility] [address] [id number] [address] [place] [address], [place] [address] May, [facility] [address] [id number] [address] [place] [address], [place] [address] May, [facility] [address] [id number] [address] [place] [address], [place] [address] May, [facility] [address] [id number] [address] [place] [address], [place] [address] May, [facility] [address] [id number] [address] [place] [address], [place] [address] May, [facility] [address] [id number] [address] [place] [address], [place] [address] Apr, [facility] [address] [id number] [address] [place] [address], [place] [address] Apr, [facility] [address] [id number] [address] [place] [address], [place] [address] Apr, [facility] [address] [id number] [address] [place] [address], [place] [address] Apr, [facility] [address] [id number] [address] [place] [address], [place] [address] Apr, [facility] [address] [id number] [address] [place] [id number] Apr, [facility] [address] [id number] [address] [place] [address], [place] [address] Apr, [facility] [address] [id number] [address] [place] [address], [place] [address] Apr, [facility] [address] [id number] [address] [place] [address], [place] [address] Apr, [facility] [address] [id number] [address] [place] [address], [place] [address] Mar, [facility] [address] [id number] [address] [place] [id number] Mar, [facility] [address] [id number] [address] [place] [id number] Mar, [facility] [address] [id number] [address] [place] [address], [place] [address] Mar, [facility] [address] [id number] [address] [place] [id number] Mar, [facility] [address] [id number] [address] [place] [id number] Mar, [facility] [address] [id number] [address] [place] [address], [place] [address] 08 Mar, 2013 [facility] [address] [id number] [address] [place] [address], [place] [address] 08 Mar, 2013 [facility] [address] [id number] [address] [place] [address], [place] [id number] 30 Feb, 2013 [facility] [address] [id number] [address] [place] [address], [place] [address] 30 Sep, 2013 [facility] [address] [id number] [address] [place] [address], [place] [address] 24 Sep, 2013 [facility] [address] [id number] [address] [place] [address], [place] [id number] 24 Feb, 2013 [facility] [address] [id number] [address] [place] [address], [place] [id number] 22 Feb, 2013 [facility] [address] [id number] [address] [place] [address], [place] [id number] 22 Feb, 2013 [facility] [address] [id number] [address] [place] [address], [place] [id number] 10 Feb, 2013 [facility] [address] [id number] [address] [place] [address], [place] [id number] 10 Feb, 2013 [facility] [address] [id number] [address] [place] [address], [place] [id number] 03 Sep, 2013 [facility] [address] [id number] [address] [place] [address], [place] [id number] 03 Sep, 2013 [facility] [address] [id number] [address] [place] [address], [place] [id number] 03 Sep, 2013 [facility] [address] [id number] [address] [place] [address], [place] [id number] 03 Sep, 2013 [facility] [address] [id number] [address] [place] [address], [place] [id number] 03 Sep, 2013 [facility] [address] [id number] [address] [place] [address], [place] [id number] Feb, [facility] [address] [id number] [address] [place] [address], [place] [id number] Jan, [facility] [address] [id number] [address] [place] [address], [place] [id number] Jan, [facility] [address] [id number] [address] [place] [address], [place] [id number] Dec, [facility] [address] [id number] [address] [place] [address], [place] [id number] Dec, [facility] [address] [id number] [address] [place] [address], [place] [id number] Dec, [facility] [address] [id number] [address] [place] [address], [place] [id number] Dec, [facility] [address] [id number] [address] [place] [address], [place] [id number] Dec, [facility] [address] [id number] [address] [place] [address], [place] [id number] Dec, [facility] [address] [id number] [address] [place] [address], [place] [id number] Dec, [facility] [address] [id number] [address] [place] [address], [place] [id number] Dec, [facility] [address] [id number] [address] [place] [address], [place] [id number] Dec, [facility] [address] [id number] [address] [place] [address], [place] [id number] Dec, [facility] [address] [id number] [address] [place] [address], [place] [id number] Dec, [facility] [address] [id number] [address] [place] [address], [place] [id number] Dec, [facility] [address] [id number] [address] [place] [address], [place] [address] Dec, [facility] [address] [id number] [address] [place] [address], [place] [id number] Dec, [facility] [address] [id number] [facility] [place] [address] Dec, [facility] [address] [id number] [address] [place] [address], [place] [address] Dec, [facility] [address] [id number] [address] [place] [address], [place] [address] Dec, [facility] [address] [id number] [address] [place] [address], [place] [id number] Dec, [facility] [address] [id number] [address] [place] [address], [place] [address] Dec, [facility] [address] [id number] [address] [place] [address], [place] [id number] Nov, [facility] [address] [id number] [address] [place] [address], [place] [address] Nov, [facility] [address] [id number] [address] [place] [address], [place] [address] Nov, [facility] [address] [id number] [address] [place] [address], [place] [address] Nov, [facility] [address] [id number] [address] [place] [address], [place] [id number] Nov, [facility] [address] [id number] [address] [place] [address], [place] [id number] Nov, [facility] [address] [id number] [address] [place] [address], [place] [id number] Nov, [facility] [address] [id number] [address] [place] [address], [place] [id number] Nov, [facility] [address] [id number] [address] [place] [address], [place] [id number] Nov, [facility] [address] [id number] [address] [place] [address], [place] [address] October, [facility] [address] [id number] [facility] [place] [address] October, [facility] [address] [id number] [address] [place] [address], [place] [id number] October, [facility] [address] [id number] [address] [place] [address], [place] [id number] October, [facility] [address] [id number] [address] [place] [address], [place] [id number] October, [facility] [address] [id number] [address] [place] [address], [place] [id number] October, [facility] [address] [id number] [address] [place] [address], [place] [id number] October, [facility] [address] [id number] [address] [place] [address], [place] [id number] October, [facility] [address] [id number] [address] [place] [address], [place] [id number] Sep, [facility] [address] [id number] [address] [place] [address], [place] [address] Sep, [facility] [address] [id number] [address] [place] [address], [place] [id number] Sep, [facility] [address] [id number] [address] [place] [address], [place] [id number] Sep, [facility] [address] [id number] [address] [place] [address], [place] [address] Sep, [facility] [address] [id number] [address] [place] [address], [place] [id number] Sep, [facility] [address] [id number] [address] [place] [address], [place] [id number] Sep, [facility] [address] [id number] [address] [place] [address], [place] [id number] Aug, [facility] [address] [id number] [address] [place] [address], [place] [id number] Aug, [facility] [address] [id number] [facility] [place] [address] Aug, [facility] [address] [id number] [address] [place] [address], [place] [address] Aug, [facility] [address] [id number] [address] [place] [address], [place] [address] Aug, [facility] [address] [id number] [address] [place] [address], [place] [id number] Aug, [facility] [address] [id number] [address] [place] [address], [place] [id number] Jul, [facility] [address] [id number] [address] [place] [address], [place] [id number] Jul, [facility] [address] [id number] [address] [place] [address], [place] [address] Jul, [facility] [address] [id number] [address] [place] [address], [place] [id number] Jul, [facility] [address] [id number] [address] [place] [address], [place] [id number] Jul, [facility] [address] [id number] [address] [place] [address], [place] [id number] Jul, [facility] [address] [id number] [address] [place] [address], [place] [address] Jun, [facility] [address] [id number] [address] [place] [address], [place] [address] Jun, [facility] [address] [id number] [address] [place] [address], [place] [id number] Jun, [facility] [address] [id number] [address] [place] [address], [place] [id number] Jun, [facility] [address] [id number] [address] [place] [address], [place] [address] Jun, [facility] [address] [id number] [address] [place] [address], [place] [id number] Jun, [facility] [address] [id number] [address] [place] [address], [place] [address] Jun, [facility] [address] [id number] [address] [place] [address], [place] [address] Jun, [facility] [address] [id number] [address] [place] [address], [place] [id number] 16 Jun, 2013 [facility] [address] [id number] [address] [place] [address], [place] [id number] Jun, [facility] [address] [id number] [address] [place] [address], [place] [id number] Jun, [facility] [address] [id number] [address] [place] [address], [place] [address] Jun, [facility] [address] [id number] [address] [place] [address], [place] [address] Jun, [facility] [address] [id number] [address] [place] [address], [place] [address] 30 May, 2013 [facility] [address] [id number] [address] [place] [address], [place] [address] 30 May, 2013 [facility] [address] [id number] [address] [place] [address], [place] [address] 30 May, 2013 [facility] [address] [id number] [address] [place] [address], [place] [id number] 30 May, 2013 [facility] [address] [id number] [address] [place] [address], [place] [id number] 26 May, 2013 [facility] [address] [id number] [address] [place] [address], [place] [id number] 14 May, 2013 [facility] [address] [id number] [address] [place] [address], [place] [address] 14 May, 2013 [facility] [address] [id number] [address] [place] [address], [place] [address] May, [facility] [address] [id number] [address] [place] [address], [place] [address] May, [facility] [address] [id number] [address] [place] [address], [place] [address] May, [facility] [address] [id number] [address] [place] [address], [place] [id number] May, [facility] [address] [id number] [address] [place] [address], [place] [id number] May, [facility] [address] [id number] [address] [place] [address], [place] [address] May, [facility] [address] [id number] [address] [place] [address], [place] [id number] May, [facility] [address] [id number] [address] [place] [address], [place] [id number] May, [facility] [address] [id number] [address] [place] [address], [place] [id number] May, [facility] [address] [id number] [address] [place] [address], [place] [id number] May, [facility] [address] [id number] [address] [place] [address], [place] [id number] May, [facility] [address] [id number] [address] [place] [address], [place] [id number] May, [facility] [address] [id number] [address] [place] [id number] May, [facility] [address] [id number] [address] [place] [address], [place] [id number] May, [facility] [address] [id number] [address] [place] [address], [place] [id number] Apr, [facility] [address] [id number] [address] [place] [id number] Apr, [facility] [address] [id number] [address] [place] [address], [place] [id number] Apr, [facility] [address] [id number] [address] [place] [address], [place] [address] Apr, [facility] [address] [id number] [address] [place] [address], [place] [id number] 08 Mar, 2013 [facility] [address] [id number] [address] [place] [address], [place] [id number] 23 Feb, 2013 [facility] [address] [id number] [address] [place] [address], [place] [id number] 16 Feb, 2013 [facility] [address] [id number] [address] [place] [address], [place] [id number] 13 Feb, 2013 [facility] [address] [id number] [address] [place] [address], [place] [id number] 10 Feb, 2013 [facility] [address] [id number] [address] [place] [address], [place] [id number] 09 Feb, 2013 [facility] [address] [id number] [address] [place] [address], [place] [id number] Feb, [facility] [address] [id number] [address] [place] [address], [place] [id number] Jan, [facility] [address] [id number] [address] [place] [address], [place] [id number] Jan, [facility] [address] [id number] [address] [place] [address], [place] [id number] Jan, [facility] [address] [id number] [address] [place] [address], [place] [id number] Dec, [facility] [address] [id number] [address] [place] [address], [place] [id number] Dec, [facility] [address] [id number] [address] [place] [address], [place] [id number] Dec, [facility] [address] [id number] [address] [place] [address], [place] [id number] Dec, [facility] [address] [id number] [facility] [place] [address] Dec, [facility] [address] [id number] [address] [place] [address], [place] [id number] Nov, [facility] [address] [id number] [address] [place] [address], [place] [id number] Nov, [facility] [address] [id number] [address] [place] [address], [place] [address] Nov, [facility] [address] [id number] [address] [place] [address], [place] [address] Nov, [facility] [address] [id number] [address] [place] [address], [place] [id number] Nov, [facility] [address] [id number] [address] [place] [address], [place] [id number] 08 Nov, 2012 [facility] [address] [id number] [address] [place] [address], [place] [id number] Nov, [facility] [address] [id number] [address] [place] [address], [place] [id number] Nov, [facility] [address] [id number] [address] [place] [address], [place] [id number] 05 Nov, 2012 [facility] [address] [id number] [address] [place] [address], [place] [id number] Nov, [facility] [address] [id number] [address] [place] [address], [place] [id number] October, [facility] [address] [id number] [address] [place] [address], [place] [id number] October, [facility] [address] [id number] [address] [place] [address], [place] [id number] Sep, [facility] [address] [id number] [address] [place] [address], [place] [id number] 08 Sep, 2012 [facility] [address] [id number] [address] [place] [address], [place] [id number] Sep, [facility] [address] [id number] [address] [place] [address], [place] [id number] Sep, [facility] [address] [id number] [address] [place] [address], [place] [id number] Sep, [facility] [address] [id number] [address] [place] [address], [place] [id number] Aug, [facility] [address] [id number] [address] [place] [address], [place] [id number] Aug, [facility] [address] [id number] [address] [place] [address], [place] [id number] Jul, [facility] [address] [id number] [address] [place] [address], [place] [id number] Jul, [facility] [address] [id number] [address] [place] [address], [place] [id number] Jun, [facility] [address] [id number] [address] [place] [address], [place] [id number] Jun, [facility] [address] [id number] [address] [place] [address], [place] [address] May, [facility] [address] [id number] [address] [place] [address], [place] [id number] May, [facility] [address] [id number] [address] [place] [address], [place] [id number] May, [facility] [address] [id number] [address] [place] [address], [place] [id number] May, [facility] [address] [id number] [address] [place] [address], [place] [id number] Apr, [facility] [address] [id number] [address] [place] [address], [place] [id number] Apr, [facility] [address] [id number] [address] [place] [address], [place] [id number] Apr, [facility] [address] [id number] [address] [place] [address], [place] [id number] Apr, [facility] [address] [id number] [address] [place] [address], [place] [id number] 20 Apr, 2012 [facility] [address] [id number] [address] [place] [address], [place] [id number] Apr, [facility] [address] [id number] [address] [place] [address], [place] [id number] 14 Apr, 2012 [facility] [address] [id number] [address] [place] [address], [place] [id number] Apr, [facility] [address] [id number] [address] [place] [address], [place] [id number] Apr, [facility] [address] [id number] [address] [place] [address], [place] [id number] 15 Mar, 2012 [facility] [address] [id number] [address] [place] [address], [place] [id number] Mar, [facility] [address] [id number] [address] [place] [address], [place] [id number] Feb, [facility] [address] [id number] [address] [place] [address], [place] [id number] Jan, [facility] [address] [id number] [address] [place] [address], [place] [id number] Jan, [facility] [address] [id number] [address] [place] [address], [place] [id number] Dec, [facility] [address] [id number] [address] [place] [address], [place] [id number] Nov, [facility] [address] [id number] [address] [place] [address], [place] [id number] Nov, [facility] [address] [id number] [address] [place] [address], [place] [id number] October, [facility] [address] [id number] [address] [place] [address], [place] [id number] October, [facility] [address] [id number] [address] [place] [address], [place] [id number] Sep, [facility] [address] [id number] [address] [place] [address], [place] [id number] Sep, [facility] [address] [id number] [address] [place] [address], [place] [id number] May, [facility] [address] [id number] [address] [place] [address], [place] [id number] Apr, [facility] [address] [id number] [address] [place] [address], [place] [id number] Apr, [facility] [address] [id number] [address] [place] [address], [place] [id number] Apr, [facility] [address] [id number] [address] [place] [address], [place] [id number] Apr, [facility] [address] [id number] [address] [place] [address], [place] [id number] Apr, [facility] [address] [id number] [address] [place] [address], [place] [id number] Apr, [facility] [address] [id number] [address] [place] [address], [place] [id number] Apr, [facility] [address] [id number] [address] [place] [address], [place] [id number] Apr, [facility] [address] [id number] [address] [place] [address], [place] [id number] Mar, [facility] [address] [id number] [address] [place] [address], [place] [id number] Mar, [facility] [address] [id number] [address] [place] [address], [place] [id number] Mar, [facility] [address] [id number] [address] [place] [address], [place] [id number] Mar, [facility] [address] [id number] [address] [place] [id number] Mar, [facility] [address] [facility] [id number] [address] [address] Mar, IMMUNIZATIONS No Known Immunizations SOCIAL HISTORY [...] Hospitalization History Mental floor at [facility]
--- OUTSIDE RECORDS SUMMARY | 2019-12-24 19:39 | XMS REPORT ---
Author Author Trey Lynn Organization [facility] Address [address] [place] [address] Care Team Providers Care Tow Picker Name Role Phone MEGHA Lynn Unavailable PROBLEMS Type Condition ICD9-CM Code ALG43-MO Code Onset Dates Condition S tatus SNOMED Code Problem Unspecified epilepsy without mention of intractable ep ilepsy G40.909 Active 10070952 Problem Hypertension I10 Active 0865141 3 Problem Other chronic pain G89.29 Active 1 10273049 Problem Rheumatoid arthritis M06.9 Active 19854997 Problem Hyperlipidemia, unspecified E78.5 Ac tive 20837648 Problem Depressive disorder F32.9 Active 86331903 Problem Esophageal reflux K21.9 Active 23 0366094 Problem Carpal tunnel syndrome of left wrist G56.02 Active 810972046819755 Problem Presbyopia H52.4 Active 02589358 Problem Cough R05 Active 14550489 Problem Nondependent 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 Ac tive 785139631 Problem Unspecified open-angle glaucoma, stage unspecified H40.10X0 Feb, Active 45124846 Problem Anxiety disorder, unspecified F41.9 Active 876301596 Problem Insomnia G47.00 Active 020197413 Problem Neuropathy G62.9 Active 833248233 Problem Thyroid nodule E04.1 Active 40392 5005 Problem Multinodular goiter E04.2 Active 290322601 Problem Chronic tension-type headache, intractable G44.221 Active 796087306 Problem Acquired hypothyroidism E03.9 Active 304040069 Problem Goiter E04.9 Active 9696266 Problem Chronic obstructive pulmonary disease, unspecified COPD ty pe J44.9 Active 05612440 Problem Reactive airway disease with out complication, unspecified asthma severity, unspecified whether persistent J45.909 Active 510673770561 Problem BMI 40.0-44.9, adult Z68.41 Active 991772084 Problem Essential hypertension I10 Active 95989008 Problem Right-sided low back pain without sciatica M54.5 Active 169876678 Problem Tension headache G44.209 Active 398 440608 Problem Depression F32.9 Active 03166317 Problem Arthralgia M25.50 Active 82240172 Problem Urge incontinence of urine N39.41 Act chen 43046982 Problem Abnormal laboratory test R89.9 Activ e 590363920 Problem COPD with exacerbation J44.1 Active 419850386 Problem Seasonal allergic rhinitis due to pollen J30.1 Active 89016536 ALLERGIES No Information ENCOUNTERS Encounter Location Date Diagnosis [facility] [address] [facility] [id number] [address] 09 Sep, 2019 Acquired hypothyroidism E03. 9 ; Tension headache G44.209 ; Essential hypertension I10 ; Multinodular goiter E04.2 and BMI 40.0-44.9, adult Z68.41 [place] [address] [address] Aug, Pelvic pain R10.2 ; Other sp ecified bacterial agents as the cause of diseases classified elsewhere B96.89 and Acute vaginitis N76.0 [facility] [address] [address] Apr, Bronchitis J40 [facility] [address] [address] Apr, Acute gastritis without hemo rrhage, unspecified gastritis type K29.00 [facility] [address] [place] [id number] [address] [place] [address] Mar, [facility] [address] [place] [id number] [address] [place] [address] Feb, [facility] [address] [address] 04 Feb, 2019 Mass of right side of neck R 22.1 and Multinodular goiter E04.2 [facility] [address] [facility] [id number] [address] [place] [address] Jan, Bronchitis J40 [place] [address] [place] [id number] [address] [place] [address] October, Acquired hypothyroidism E03. 9 [place] [address] [address] October, Acute gastritis without hemo rrhage, unspecified gastritis type K29.00 ; Epigastric pain R10.13 ; Essential hypertension I10 ; Screening for colon cancer Z12.11 and BMI 40.0-44.9, adult Z68.41 [place] [address] [address] October, [facility] [place] [address] [address] October, Chest pain R07.9 and Morbid obesity E66.01 [facility] [address] [address] Sep, Generalized abdominal pain R 10.84 ; Morbid obesity E66.01 ; Non-intractable vomiting with nausea, unspecified vomiting type R11.2 and Seasonal allergic rhinitis due to pollen J30.1 [facility] [place] [address] [address] Jul, COPD with exacerbation J44.1 ; Viral upper respiratory tract infection J06.9 and Morbid obesity E66.01 [facility] [place] [address] [address] Jun, Viral upper respiratory trac t infection J06.9 [place] [address] [place] [id number] [place] [address] Apr, Abnormal laboratory test R89 .9 [place] [address] [address] Apr, Abnormal laboratory test R89 .9 [place] [address] [address] Apr, Abnormal laboratory test R89 .9 [place] [address] [place] [id number] [place] [address] Apr, [place] [address] [address] Apr, [place] [address] [address] Apr, Nonintractable episodic head ache, unspecified headache type R51 ; Urge incontinence of urine N39.41 ; BMI 40.0-44.9, adult Z68.41 ; Myalgia M79.10 and Acute cystitis without hematuria N30.[address] [address] Mar, Nasal congestion R09.81 ; Lo w back pain M54.5 ; Reactive airway disease without complication, unspecified asthma severity, unspecified whether persistent J45.909 ; Other chronic pain G89.29 ; Acute cystitis with hematuria N30.01 and BMI 40.0-44.9, adult Z68.41 [place] [address] [address] Mar, Acute cystitis with hematuri a N30.01 [facility] [address] [address] Mar, BMI 40.0-44.9, adult Z68.41 ; Acute cystitis with hematuria N30.01 ; Acute bilateral low back pain without sciatica M54.5 and Nausea R11.0 [place] [address] [address] Mar, Hypertension I10 ; Acquired hypothyroidism E03.9 ; Esophageal reflux K21.9 ; Chronic obstructive pulmonary disease, unspecified COPD type J44.9 and BMI 40.0-44.9, adult Z68.41 [place] [address] [address] Mar, Hypertension I10 [facility] [address] [address] Nov, Hyperlipidemia, unspecified E78.5 [place] [address] [place] [id number] [address] [place] [address] October, Chest pain, unspecified type R07.9 and Acquired hypothyroidism E03.9 [place] [address] [place] [id number] [place] [address] October, Chest pain, unspecified type R07.9 ; Family history of coronary artery disease Z82.49 ; Carpal tunnel syndrome of left wrist G56.02 ; Hypertension I10 ; Esophageal reflux K21.9 ; Arthralgia M25.50 ; Acquired hypothyroidism E03.9 ; Cough R05 ; Nausea R11.0 ; Weight gain R63.5 and BMI 45.0-49.9, adult Z68.42 [place] [address] [address] Jun, Acquired hypothyroidism E03. 9 and Cough R05 [place] [address] [address] May, [place] [address] [address] Feb, Tarsal tunnel syndrome of timi th lower extremities G57.53 and Neuropathy G62.9 [place] [address] [place] [id number] [place] [address] Dec, Pleuritis R09.1 [place] [address] [place] [id number] [place] [address] Nov, [place] [address] [place] [id number] [place] [address] October, Arthralgia, unspecified join t M25.50 and Allergy, initial encounter T78.40XA [place] [address] [place] [id number] [address] [place] [address] October, [place] [address] [address] October, Acute recurrent maxillary si nusitis J01.01 and Arthralgia M25.50 [place] [address] [address] Sep, Pharyngitis due to other org anism J02.8 [place] [address] [address] 30 Aug, 2016 Acute nasopharyngitis J00 [place] [address] [address] 10 Aug, 2016 Multinodular goiter E04.2 [place] [address] [address] Aug, Thyroid nodule E04.1 [place] [address] [address] 17 Jul, 2016 Tarsal tunnel syndrome of timi th lower extremities G57.53 [place] [address] [address] Jun, Pneumonia due to infectious organism, unspecified laterality, unspecified part of lung J18.9 [place] [address] [address] Jun, Bronchospasm with bronchitis , acute J20.9 [place] [address] [address] May, Acute non-recurrent frontal sinusitis J01.10 [place] [address] [address] May, Flat foot [pes planus] (acqu ired), left foot M21.42 ; Flat foot [pes planus] (acquired), right foot M21.41 and Neuropathy G62.9 [place] [address] [place] [id number] [place] [address] Apr, Chronic tension-type headach e, intractable G44.221 ; Right lower quadrant abdominal pain R10.31 ; Cervicalgia M54.2 ; Acute gastritis without hemorrhage, unspecified gastritis type K29.00 and Hypertension I10 [place] [address] [address] Mar, Depression F32.9 and Anxiety disorder, unspecified F41.9 [place] [address] [address] Feb, Depressive disorder F32.9 an d Anxiety disorder, unspecified F41.9 [place] [address] [address] Jan, Dysuria R30.0 ; Lower abdomi nal pain R10.30 ; Acute bilateral low back pain without sciatica M54.5 ; Nausea and vomiting, unspecified intactability, vomiting of unspecified type R11.2 ; Pain in right foot M79.671 and Pain of left foot M79.672 [place] [address] [address] Dec, Urinary tract infection, sit e not specified N39.0 [place] [address] [address] Dec, [place] [address] [address] Nov, [place] [address] [address] Nov, Dysuria R30.0 [place] [address] [address] Nov, Dysuria R30.0 and Acute cyst itis with hematuria N30.01 [place] [address] [place] [id number] [place] [address] October, Nausea R11.0 [place] [address] [place] [id number] [place] [address] October, Thyroid nodule E04.1 ; Carpa l tunnel syndrome, left upper limb G56.02 ; Carpal tunnel syndrome, right upper limb G56.01 and Constipation, unspecified constipation type K59.00 [place] [address] [address] October, [place] [address] [address] October, Thyroid nodule E04.1 [place] [address] [address] October, Cold thyroid nodule E04.1 [place] [address] [address] October, [place] [address] [address] Sep, Thyroid nodule E04.1 [place] [address] [address] Sep, Thyroid nodule E04.1 [place] [address] [address] Sep, Thyroid nodule E04.1 ; Hyper tension I10 ; Esophageal reflux K21.9 and Hyperlipidemia, unspecified E78.5 [place] [address] [address] Aug, Other chronic pain G89.29 ; Sinusitis J32.9 and Hypertension I10 [place] [address] [address] Jul, [place] [address] [address] Jul, [place] [address] [address] Jul, Insomnia G47.00 and Arthralg ia M25.50 [place] [address] [address] Jul, Depressive disorder F32.9 an d Anxiety disorder, unspecified F41.9 [facility] [address] [address] May, Right-sided low back pain wi thout sciatica M54.5 and Depression F32.9 [facility] [address] [place] [id number] [place] [address] Apr, Hematuria R31.9 [facility] [address] [place] [id number] [place] [address] Mar, Other chronic pain G89.29 [place] [address] [address] Mar, Other chronic pain G89.29 [place] [address] [address] Feb, [facility] [address] [address] Feb, Other chronic pain 338.29 ; Dysuria 788.1 ; UTI (urinary tract infection) 599.0 ; Insomnia 780.52 ; Hot flashes 627.2 and Hypertension 401.9 [place] [address] [address] Feb, Dysuria 788.1 [place] [address] [address] Feb, [facility] [address] [address] Jan, [facility] [address] [address] Jan, [place] [address] [address] Jan, Fibromyalgia 729.1 ; Hyperte nsion 401.9 ; Dysthymia 300.4 and Hot flashes 627.2 [place] [address] [place] [address] Dec, [facility] [address] [id number] [address] [place] [address], [place] [address] Dec, [facility] [address] [id number] [address] [place] [address], [place] [address] Dec, [facility] [address] [id number] [address] [place] [address], [place] [address] Nov, Other chronic pain 338.29 [facility] [address] [id number] [address] [place] [address], [place] [address] October, [facility] [address] [id number] [address] [place] [address], [place] [address] October, [facility] [address] [id number] [address] [place] [address], [place] [address] Sep, [facility] [address] [id number] [address] [place] [address], [place] [address] Sep, [facility] [address] [id number] [address] [place] [address], [place] [address] Aug, [facility] [address] [id number] [address] [place] [address], [place] [address] Aug, [facility] [address] [id number] [address] [place] [address], [place] [address] Aug, [facility] [address] [id number] [address] [place] [address], [place] [address] 23 Aug, 2014 [facility] [address] [id number] [address] [place] [address], [place] [address] 22 Aug, 2014 [facility] [address] [id number] [address] [place] [address], [place] [address] 20 Aug, 2014 [facility] [address] [id number] [address] [place] [address], [place] [address] 19 Aug, 2014 [facility] [address] [id number] [address] [place] [address], [place] [address] Aug, [facility] [address] [id number] [address] [place] [address], [place] [address] Aug, [facility] [address] [id number] [address] [place] [address], [place] [address] Aug, [facility] [address] [id number] [address] [place] [address], [place] [address] Aug, [facility] [address] [id number] [address] [place] [address], [place] [address] Aug, [facility] [address] [id number] [address] [place] [address], [place] [address] Aug, [facility] [address] [id number] [address] [place] [address], [place] [address] Aug, [facility] [address] [id number] [address] [place] [address], [place] [address] Jul, [facility] [address] [id number] [address] [place] [address], [place] [address] Jul, [facility] [address] [id number] [address] [place] [address], [place] [address] Jul, [facility] [address] [id number] [address] [place] [address], [place] [address] Jul, [facility] [address] [id number] [address] [place] [address], [place] [address] Jul, [facility] [address] [id number] [address] [place] [address], [place] [address] Jul, [facility] [address] [id number] [address] [place] [address], [place] [address] Jun, [facility] [address] [id number] [address] [place] [address], [place] [address] Jun, [facility] [address] [id number] [address] [place] [address], [place] [address] Jun, [facility] [address] [id number] [address] [place] [address], [place] [address] Jun, [facility] [address] [id number] [address] [place] [address], [place] [address] May, [facility] [address] [id number] [address] [place] [address], [place] [address] May, [facility] [address] [id number] [address] [place] [address], [place] [address] May, [facility] [address] [id number] [address] [place] [address], [place] [address] May, [facility] [address] [id number] [address] [place] [address], [place] [address] May, [facility] [address] [id number] [address] [place] [address], [place] [address] May, [facility] [address] [id number] [address] [place] [address], [place] [address] May, [facility] [address] [id number] [address] [place] [address], [place] [address] May, [facility] [address] [id number] [address] [place] [address], [place] [address] May, [facility] [address] [id number] [address] [place] [address], [place] [address] May, [facility] [address] [id number] [address] [place] [address], [place] [address] Apr, [facility] [address] [id number] [address] [place] [address], [place] [address] Apr, [facility] [address] [id number] [address] [place] [address], [place] [address] Apr, [facility] [address] [id number] [address] [place] [address], [place] [address] Apr, [facility] [address] [id number] [address] [place] [address], [place] [address] Apr, [facility] [address] [id number] [address] [place] [address], [place] [address] Apr, [facility] [address] [id number] [address] [place] [address], [place] [address] Apr, [facility] [address] [id number] [address] [place] [address], [place] [address] Apr, [facility] [address] [id number] [address] [place] [address], [place] [address] Apr, [facility] [address] [id number] [address] [place] [address], [place] [address] Mar, [facility] [address] [id number] [address] [place] [address], [place] [address] Mar, [facility] [address] [id number] [address] [place] [address], [place] [address] Mar, [facility] [address] [id number] [address] [place] [address] Mar, [facility] [address] [id number] [address] [place] [address], [place] [address] Mar, [facility] [address] [id number] [address] [place] [address] Mar, [facility] [address] [id number] [address] [place] [address] Mar, [facility] [address] [id number] [address] [place] [address] Mar, [facility] [address] [id number] [address] [place] [address], [place] [address] Feb, [facility] [address] [id number] [address] [place] [address], [place] [address] 30 Feb, 2014 [facility] [address] [id number] [address] [place] [address] 24 Feb, 2014 [facility] [address] [id number] [address] [place] [address] 24 Feb, 2013 [facility] [address] [id number] [facility] [place] [address] 22 Feb, 2013 [facility] [address] [id number] [address] [place] [address], [place] [address] Feb, 2013 [facility] [address] [id number] [address] [place] [address], [place] [address] 10 Feb, 2013 [facility] [address] [id number] [address] [place] [address], [place] [address] 10 Feb, 2013 [facility] [address] [id number] [address] [place] [address], [place] [address] Feb, 2013 [facility] [address] [id number] [address] [place] [address], [place] [address] Feb, 2013 [facility] [address] [id number] [address] [place] [address], [place] [address] Feb, 2013 [facility] [address] [id number] [address] [place] [address], [place] [address] Feb, 2013 [facility] [address] [id number] [address] [place] [address], [place] [address] Feb, 2013 [facility] [address] [id number] [address] [place] [address], [place] [address] Feb, 2013 [facility] [address] [id number] [address] [place] [address], [place] [address] Jan, [facility] [address] [id number] [address] [place] [address], [place] [address] Jan, [facility] [address] [id number] [address] [place] [address], [place] [address] Dec, [facility] [address] [id number] [address] [place] [address], [place] [address] Dec, [facility] [address] [id number] [address] [place] [address], [place] [address] Dec, [facility] [address] [id number] [facility] [place] [address] Dec, 2013 [facility] [address] [id number] [address] [place] [address], [place] [id number] Dec, 2013 [facility] [address] [id number] [facility] [place] [address] Dec, 2013 [facility] [address] [id number] [address] [place] [address], [place] [address] Dec, 2013 [facility] [address] [id number] [address] [place] [address], [place] [address] Dec, 2013 [facility] [address] [id number] [address] [place] [address], [place] [address] Dec, 2013 [facility] [address] [id number] [address] [place] [address], [place] [address] Dec, 2013 [facility] [address] [id number] [address] [place] [address], [place] [address] Dec, 2013 [facility] [address] [id number] [address] [place] [address], [place] [address] Dec, 2013 [facility] [address] [id number] [address] [place] [address], [place] [address] Dec, [facility] [address] [id number] [address] [place] [address], [place] [address] Dec, [facility] [address] [id number] [address] [place] [address], [place] [address] Dec, 2013 [facility] [address] [id number] [address] [place] [address], [place] [address] Dec, 2013 [facility] [address] [id number] [address] [place] [address], [place] [address] Dec, [facility] [address] [id number] [address] [place] [address], [place] [address] Dec, [facility] [address] [id number] [address] [place] [address], [place] [address] Dec, [facility] [address] [id number] [facility] [place] [address] Nov, [facility] [address] [id number] [address] [place] [address], [place] [address] Nov, [facility] [address] [id number] [address] [place] [address], [place] [address] Nov, [facility] [address] [id number] [address] [place] [address], [place] [address] Nov, [facility] [address] [id number] [address] [place] [address], [place] [address] Nov, [facility] [address] [id number] [address] [place] [address], [place] [address] Nov, [facility] [address] [id number] [address] [place] [address], [place] [address] Nov, [facility] [address] [id number] [address] [place] [address], [place] [address] Nov, [facility] [address] [id number] [address] [place] [address], [place] [address] Nov, [facility] [address] [id number] [address] [place] [address], [place] [address] October, [facility] [address] [id number] [address] [place] [address], [place] [address] October, [facility] [address] [id number] [address] [place] [address], [place] [address] October, [facility] [address] [id number] [address] [place] [address], [place] [address] October, [facility] [address] [id number] [address] [place] [address], [place] [address] October, [facility] [address] [id number] [address] [place] [address], [place] [address] October, [facility] [address] [id number] [address] [place] [address], [place] [address] October, [facility] [address] [id number] [address] [place] [address], [place] [address] October, [facility] [address] [id number] [address] [place] [address], [place] [address] Sep, [facility] [address] [id number] [address] [place] [address], [place] [address] Sep, [facility] [address] [id number] [address] [place] [address], [place] [address] Sep, [facility] [address] [id number] [address] [place] [address], [place] [address] Sep, [facility] [address] [id number] [address] [place] [address], [place] [address] Sep, [facility] [address] [id number] [address] [place] [address], [place] [address] Sep, [facility] [address] [id number] [address] [place] [address], [place] [address] Sep, [facility] [address] [id number] [address] [place] [address], [place] [address] Aug, [facility] [address] [id number] [address] [place] [address], [place] [address] Aug, [facility] [address] [id number] [address] [place] [address], [place] [address] Aug, [facility] [address] [id number] [address] [place] [address], [place] [address] Aug, [facility] [address] [id number] [address] [place] [address], [place] [address] Aug, [facility] [address] [id number] [address] [place] [address], [place] [address] Aug, [facility] [address] [id number] [address] [place] [address], [place] [address] Jul, [facility] [address] [id number] [address] [place] [address], [place] [address] Jul, [facility] [address] [id number] [address] [place] [address], [place] [address] Jul, [facility] [address] [id number] [address] [place] [address], [place] [address] Jul, [facility] [address] [id number] [address] [place] [address], [place] [address] Jul, [facility] [address] [id number] [address] [place] [address], [place] [address] Jul, [facility] [address] [id number] [address] [place] [address], [place] [address] Jun, [facility] [address] [id number] [address] [place] [address], [place] [address] Jun, [facility] [address] [id number] [address] [place] [address], [place] [address] Jun, [facility] [address] [id number] [address] [place] [address], [place] [address] Jun, [facility] [address] [id number] [address] [place] [address], [place] [address] Jun, [facility] [address] [id number] [address] [place] [address], [place] [address] Jun, [facility] [address] [id number] [address] [place] [address], [place] [address] Jun, [facility] [address] [id number] [address] [place] [address], [place] [address] Jun, [facility] [address] [id number] [address] [place] [address], [place] [address] Jun, [facility] [address] [id number] [address] [place] [address], [place] [address] Jun, [facility] [address] [id number] [address] [place] [address], [place] [address] 14 Jun, 2013 [facility] [address] [id number] [address] [place] [address], [place] [address] 14 Jun, 2013 [facility] [address] [id number] [address] [place] [address], [place] [address] 14 Jun, 2013 [facility] [address] [id number] [address] [place] [address], [place] [address] 30 May, 2013 [facility] [address] [id number] [address] [place] [address], [place] [address] 30 May, 2013 [facility] [address] [id number] [address] [place] [address], [place] [address] 30 May, 2013 [facility] [address] [id number] [address] [place] [address], [place] [address] 30 May, 2013 [facility] [address] [id number] [address] [place] [address], [place] [address] May, [facility] [address] [id number] [address] [place] [address], [place] [address] May, [facility] [address] [id number] [address] [place] [address], [place] [address] May, [facility] [address] [id number] [address] [place] [address], [place] [address] May, [facility] [address] [id number] [address] [place] [address], [place] [address] May, [facility] [address] [id number] [address] [place] [address], [place] [address] May, [facility] [address] [id number] [address] [place] [address], [place] [address] May, [facility] [address] [id number] [address] [place] [address], [place] [address] May, [facility] [address] [id number] [address] [place] [address], [place] [address] May, [facility] [address] [id number] [address] [place] [address], [place] [address] 09 May, 2012 [facility] [address] [id number] [address] [place] [address], [place] [address] 09 May, 2013 [facility] [address] [id number] [address] [place] [address], [place] [address] 08 May, 2013 [facility] [address] [id number] [address] [place] [address], [place] [address] 07 May, 2012 [facility] [address] [id number] [address] [place] [address], [place] [address] 06 May, 2012 [facility] [address] [id number] [address] [place] [address], [place] [address] May, [facility] [address] [id number] [address] [place] [address], [place] [address] May, [facility] [address] [id number] [address] [place] [address], [place] [address] May, [facility] [address] [id number] [address] [place] [address], [place] [address] Apr, [facility] [address] [id number] [address] [place] [address], [place] [address] Apr, [facility] [address] [id number] [address] [place] [address], [place] [address] Apr, [facility] [address] [id number] [address] [place] [address], [place] [address] Apr, [facility] [address] [id number] [address] [place] [address], [place] [address] 08 Mar, 2013 [facility] [address] [id number] [address] [place] [address], [place] [address] 23 Feb, 2013 [facility] [address] [id number] [address] [place] [address], [place] [address] 16 Sep2012 [facility] [address] [id number] [address] [place] [address], [place] [address] Feb, [facility] [address] [id number] [address] [place] [address], [place] [address] Feb, [facility] [address] [id number] [address] [place] [address], [place] [address] Feb, [facility] [address] [id number] [address] [place] [address], [place] [address] Feb, [facility] [address] [id number] [address] [place] [address], [place] [address] Jan, [facility] [address] [id number] [address] [place] [address], [place] [address] Jan, [facility] [address] [id number] [address] [place] [address], [place] [address] Jan, [facility] [address] [id number] [address] [place] [address], [place] [address] Dec, [facility] [address] [id number] [address] [place] [address], [place] [address] Dec, [facility] [address] [id number] [address] [place] [address], [place] [address] Dec, [facility] [address] [id number] [address] [place] [address], [place] [address] Dec, [facility] [address] [id number] [address] [place] [address], [place] [address] Dec, [facility] [address] [id number] [address] [place] [address], [place] [address] Nov, [facility] [address] [id number] [address] [place] [address], [place] [address] Nov, [facility] [address] [id number] [address] [place] [address], [place] [address] Nov, [facility] [address] [id number] [address] [place] [address], [place] [address] Nov, [facility] [address] [id number] [address] [place] [address], [place] [address] 12 Nov, 2012 [facility] [address] [id number] [address] [place] [address], [place] [address] 08 Nov, 2012 [facility] [address] [id number] [address] [place] [address], [place] [address] 07 Nov, 2012 [facility] [address] [id number] [address] [place] [address], [place] [address] Nov, [facility] [address] [id number] [address] [place] [address], [place] [address] Nov, [facility] [address] [id number] [address] [place] [address], [place] [address] Nov, [facility] [address] [id number] [address] [place] [address], [place] [address] October, [facility] [address] [id number] [address] [place] [address], [place] [address] October, [facility] [address] [id number] [address] [place] [address], [place] [address] Sep, [facility] [address] [id number] [address] [place] [address], [place] [address] Sep, [facility] [address] [id number] [address] [place] [address], [place] [address] Sep, [facility] [address] [id number] [address] [place] [address], [place] [address] Sep, [facility] [address] [id number] [address] [place] [address], [place] [address] Sep, [facility] [address] [id number] [address] [place] [address], [place] [address] Aug, [facility] [address] [id number] [address] [place] [address], [place] [address] Aug, [facility] [address] [id number] [address] [place] [address], [place] [address] Jul, [facility] [address] [id number] [address] [place] [address], [place] [address] Jul, [facility] [address] [id number] [address] [place] [address], [place] [address] Jun, [facility] [address] [id number] [address] [place] [address], [place] [address] Jun, [facility] [address] [id number] [address] [place] [address], [place] [address] May, [facility] [address] [id number] [address] [place] [address], [place] [address] May, [facility] [address] [id number] [address] [place] [address], [place] [address] May, [facility] [address] [id number] [address] [place] [address], [place] [address] May, [facility] [address] [id number] [address] [place] [address], [place] [address] Apr, [facility] [address] [id number] [address] [place] [address], [place] [address] Apr, [facility] [address] [id number] [address] [place] [address], [place] [address] Apr, [facility] [address] [id number] [address] [place] [address], [place] [address] Apr, [facility] [address] [id number] [address] [place] [address], [place] [address] Apr, [facility] [address] [id number] [address] [place] [address], [place] [address] Apr, [facility] [address] [id number] [address] [place] [address], [place] [address] Apr, [facility] [address] [id number] [address] [place] [address], [place] [address] Apr, [facility] [address] [id number] [address] [place] [address] Apr, [facility] [address] [id number] [address] [place] [address], [place] [address] Mar, [facility] [address] [id number] [address] [place] [address], [place] [address] Mar, [facility] [address] [id number] [address] [place] [address], [place] [address] Feb, [facility] [address] [id number] [address] [place] [address], [place] [address] Jan, [facility] [address] [id number] [address] [place] [address], [place] [address] Jan, [facility] [address] [id number] [address] [place] [address], [place] [address] Dec, [facility] [address] [id number] [address] [place] [address], [place] [address] Nov, [facility] [address] [id number] [address] [place] [address], [place] [address] Nov, [facility] [address] [id number] [address] [place] [address], [place] [address] October, [facility] [address] [id number] [address] [place] [address], [place] [address] October, [facility] [address] [id number] [address] [place] [address], [place] [address] Sep, [facility] [address] [id number] [address] [place] [address], [place] [address] Sep, [facility] [address] [id number] [address] [place] [address], [place] [address] May, [facility] [address] [id number] [address] [place] [address], [place] [address] Apr, [facility] [address] [id number] [address] [place] [address], [place] [address] Apr, [facility] [address] [id number] [address] [place] [address] 15 Apr, 2011 [facility] [address] [id number] [address] [place] [address] 15 Apr, 2011 [facility] [address] [id number] [address] [place] [address] Apr, [facility] [address] [id number] [address] [place] [address] Apr, [facility] [address] [id number] [address] [place] [address] Apr, [facility] [address] [id number] [address] [place] [address] Apr, [facility] [address] [id number] [address] [place] [address] Mar, [facility] [address] [id number] [address] [place] [address] Mar, [facility] [address] [id number] [address] [place] [address] Mar, [facility] [address] [id number] [address] [place] [address] Mar, [facility] [address] [id number] [address] [place] [address] Mar, [facility] [address] [id number] [address] [place] [address] Mar, IMMUNIZATIONS No Known Immunizations SOCIAL HISTORY [...]
--- OUTSIDE RECORDS SUMMARY | 2019-12-24 19:39 | XMS REPORT ---
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 Phone SURESH ANDRADE Unavailable PROBLEMS Type Condition ICD9-CM Code HCV26-TX Code Onset Dates Condition S tatus SNOMED Code Problem Unspecified epilepsy without mention of intractable ep ilepsy G40.909 Active 05266058 Problem Hypertension I10 Active 5332825 3 Problem Other chronic pain G89.29 Active 1 92691028 Problem Rheumatoid arthritis M06.9 Active 39102065 Problem Hyperlipidemia, unspecified E78.5 Ac tive 67243384 Problem Depressive disorder F32.9 Active 51931379 Problem Esophageal reflux K21.9 Active 23 5163852 Problem Carpal tunnel syndrome of left wrist G56.02 Active 033524307060434 Problem Presbyopia H52.4 Active 26316924 Problem Cough R05 Active 45935217 Problem Nondependent 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 Ac tive 465903627 Problem Unspecified open-angle glaucoma, stage unspecified H40.10X0 Feb, Active 01419328 Problem Anxiety disorder, unspecified F41.9 Active 226112993 Problem Insomnia G47.00 Active 887293769 Problem Neuropathy G62.9 Active 753075214 Problem Thyroid nodule E04.1 Active 04962 5005 Problem Multinodular goiter E04.2 Active 045743010 Problem Chronic tension-type headache, intractable G44.221 Active 823432919 Problem Acquired hypothyroidism E03.9 Active 713904668 Problem Goiter E04.9 Active 4766944 Problem Chronic obstructive pulmonary disease, unspecified COPD ty pe J44.9 Active 86620188 Problem Reactive airway disease with out complication, unspecified asthma severity, unspecified whether persistent J45.909 Active 942535662453 Problem BMI 40.0-44.9, adult Z68.41 Active 801173592 Problem Essential hypertension I10 Active 75300282 Problem Right-sided low back pain without sciatica M54.5 Active 423391479 Problem Tension headache G44.209 Active 398 394535 Problem Depression F32.9 Active 40237943 Problem Arthralgia M25.50 Active 20966000 Problem Urge incontinence of urine N39.41 Act chen 20741013 Problem Abnormal laboratory test R89.9 Activ e 754437955 Problem COPD with exacerbation J44.1 Active 699526766 Problem Seasonal allergic rhinitis due to pollen J30.1 Active 16422197 ALLERGIES No Information ENCOUNTERS Encounter Location Date Diagnosis [facility] [address] [facility] [id number] [address] 09 Sep, 2019 Acquired hypothyroidism E03. 9 ; Tension headache G44.209 ; Essential hypertension I10 ; Multinodular goiter E04.2 and BMI 40.0-44.9, adult Z68.41 [place] [address] [address] Aug, Pelvic pain R10.2 ; Other sp ecified bacterial agents as the cause of diseases classified elsewhere B96.89 and Acute vaginitis N76.0 [facility] [address] [address] Apr, Bronchitis J40 [facility] [address] [address] Apr, Acute gastritis without hemo rrhage, unspecified gastritis type K29.00 [facility] [address] [place] [id number] [place] [address] Mar, [facility] [address] [place] [id number] [address] [place] [address] Feb, [facility] [address] [address] 04 Feb, 2019 Mass of right side of neck R 22.1 and Multinodular goiter E04.2 [facility] [address] [facility] [id number] [address] [place] [address] Jan, Bronchitis J40 [place] [address] [place] [id number] [address] [place] [address] October, Acquired hypothyroidism E03. 9 [place] [address] [address] October, Acute gastritis without hemo rrhage, unspecified gastritis type K29.00 ; Epigastric pain R10.13 ; Essential hypertension I10 ; Screening for colon cancer Z12.11 and BMI 40.0-44.9, adult Z68.41 [place] [address] [address] October, [facility] [place] [address] [address] October, Chest pain R07.9 and Morbid obesity E66.01 [facility] [address] [address] Sep, Generalized abdominal pain R 10.84 ; Morbid obesity E66.01 ; Non-intractable vomiting with nausea, unspecified vomiting type R11.2 and Seasonal allergic rhinitis due to pollen J30.1 [facility] IN [place] [address] [address] Jul, COPD with exacerbation J44.1 ; Viral upper respiratory tract infection J06.9 and Morbid obesity E66.01 [facility] IN [place] [address] [address] Jun, Viral upper respiratory trac t infection J06.9 [place] [address] [place] [id number] [place] [address] Apr, Abnormal laboratory test R89 .9 [place] [address] [address] Apr, Abnormal laboratory test R89 .9 [place] [address] [address] Apr, Abnormal laboratory test R89 .9 [place] [address] [place] [id number] [address] [place] [address] Apr, [place] [address] [address] Apr, [place] [address] [address] Apr, Nonintractable episodic head ache, unspecified headache type R51 ; Urge incontinence of urine N39.41 ; BMI 40.0-44.9, adult Z68.41 ; Myalgia M79.10 and Acute cystitis without hematuria N30.[address] [address] Mar, Nasal congestion R09.81 ; Lo w back pain M54.5 ; Reactive airway disease without complication, unspecified asthma severity, unspecified whether persistent J45.909 ; Other chronic pain G89.29 ; Acute cystitis with hematuria N30.01 and BMI 40.0-44.9, adult Z68.41 [place] [address] [address] Mar, Acute cystitis with hematuri a N30.01 [facility] [address] [address] Mar, BMI 40.0-44.9, adult Z68.41 ; Acute cystitis with hematuria N30.01 ; Acute bilateral low back pain without sciatica M54.5 and Nausea R11.0 [place] [address] [address] Mar, Hypertension I10 ; Acquired hypothyroidism E03.9 ; Esophageal reflux K21.9 ; Chronic obstructive pulmonary disease, unspecified COPD type J44.9 and BMI 40.0-44.9, adult Z68.41 [place] [address] [address] Mar, Hypertension I10 [facility] [address] [address] Nov, Hyperlipidemia, unspecified E78.5 [place] [address] [place] [id number] [address] [place] [address] October, Chest pain, unspecified type R07.9 and Acquired hypothyroidism E03.9 [place] [address] [place] [id number] [place] [address] October, Chest pain, unspecified type R07.9 ; Family history of coronary artery disease Z82.49 ; Carpal tunnel syndrome of left wrist G56.02 ; Hypertension I10 ; Esophageal reflux K21.9 ; Arthralgia M25.50 ; Acquired hypothyroidism E03.9 ; Cough R05 ; Nausea R11.0 ; Weight gain R63.5 and BMI 45.0-49.9, adult Z68.42 [place] [address] [address] Jun, Acquired hypothyroidism E03. 9 and Cough R05 [place] [address] [address] May, [place] [address] [address] Feb, Tarsal tunnel syndrome of timi th lower extremities G57.53 and Neuropathy G62.9 [place] [address] [place] [id number] [place] [address] Dec, Pleuritis R09.1 [place] [address] [place] [id number] [place] [address] Nov, [place] [address] [place] [id number] [place] [address] October, Arthralgia, unspecified join t M25.50 and Allergy, initial encounter T78.40XA [place] [address] [place] [id number] [place] [address] October, [place] [address] [address] October, Acute recurrent maxillary si nusitis J01.01 and Arthralgia M25.50 [place] [address] [address] Sep, Pharyngitis due to other org anism J02.8 [place] [address] [address] 30 Aug, 2016 Acute nasopharyngitis J00 [place] [address] [address] 10 Aug, 2016 Multinodular goiter E04.2 [place] [address] [address] Aug, Thyroid nodule E04.1 [place] [address] [address] 17 Jul, 2016 Tarsal tunnel syndrome of timi th lower extremities G57.53 [place] [address] [address] Jun, Pneumonia due to infectious organism, unspecified laterality, unspecified part of lung J18.9 [place] [address] [address] Jun, Bronchospasm with bronchitis , acute J20.9 [place] [address] [address] May, Acute non-recurrent frontal sinusitis J01.10 [place] [address] [address] May, Flat foot [pes planus] (acqu ired), left foot M21.42 ; Flat foot [pes planus] (acquired), right foot M21.41 and Neuropathy G62.9 [place] [address] [place] [id number] [place] [address] Apr, Chronic tension-type headach e, intractable G44.221 ; Right lower quadrant abdominal pain R10.31 ; Cervicalgia M54.2 ; Acute gastritis without hemorrhage, unspecified gastritis type K29.00 and Hypertension I10 [place] [address] [address] Mar, Depression F32.9 and Anxiety disorder, unspecified F41.9 [place] [address] [address] Feb, Depressive disorder F32.9 an d Anxiety disorder, unspecified F41.9 [place] [address] [address] Jan, Dysuria R30.0 ; Lower abdomi nal pain R10.30 ; Acute bilateral low back pain without sciatica M54.5 ; Nausea and vomiting, unspecified intactability, vomiting of unspecified type R11.2 ; Pain in right foot M79.671 and Pain of left foot M79.672 [place] [address] [address] Dec, Urinary tract infection, sit e not specified N39.0 [place] [address] [address] Dec, [place] [address] [address] Nov, [place] [address] [address] Nov, Dysuria R30.0 [place] [address] [address] Nov, Dysuria R30.0 and Acute cyst itis with hematuria N30.01 [place] [address] [place] [id number] [place] [address] October, Nausea R11.0 [place] [address] [place] [id number] [place] [address] October, Thyroid nodule E04.1 ; Carpa l tunnel syndrome, left upper limb G56.02 ; Carpal tunnel syndrome, right upper limb G56.01 and Constipation, unspecified constipation type K59.00 [place] [address] [address] October, [place] [address] [address] October, Thyroid nodule E04.1 [place] [address] [address] October, Cold thyroid nodule E04.1 [place] [address] [address] October, [place] [address] [address] Sep, Thyroid nodule E04.1 [place] [address] [address] Sep, Thyroid nodule E04.1 [place] [address] [address] Sep, Thyroid nodule E04.1 ; Hyper tension I10 ; Esophageal reflux K21.9 and Hyperlipidemia, unspecified E78.5 [place] [address] [address] Aug, Other chronic pain G89.29 ; Sinusitis J32.9 and Hypertension I10 [place] [address] [address] Jul, [place] [address] [address] Jul, [place] [address] [address] Jul, Insomnia G47.00 and Arthralg ia M25.50 [place] [address] [address] Jul, Depressive disorder F32.9 an d Anxiety disorder, unspecified F41.9 [facility] [address] [address] May, Right-sided low back pain wi thout sciatica M54.5 and Depression F32.9 [facility] [address] [place] [id number] [place] [address] Apr, Hematuria R31.9 [facility] [address] [place] [id number] [place] [address] Mar, Other chronic pain G89.29 [place] [address] [address] Mar, Other chronic pain G89.29 [place] [address] [address] Feb, [facility] [address] [address] Feb, Other chronic pain 338.29 ; Dysuria 788.1 ; UTI (urinary tract infection) 599.0 ; Insomnia 780.52 ; Hot flashes 627.2 and Hypertension 401.9 [place] [address] [address] Feb, Dysuria 788.1 [place] [address] [address] Feb, [facility] [address] [address] Jan, [facility] [address] [address] Jan, [place] [address] [address] Jan, Fibromyalgia 729.1 ; Hyperte nsion 401.9 ; Dysthymia 300.4 and Hot flashes 627.2 [place] [address] [place] [address] Dec, [facility] [address] [id number] [address] [place] [address], [place] [address] Dec, [facility] [address] [id number] [address] [place] [address], [place] [address] Dec, [facility] [address] [id number] [address] [place] [address], [place] [address] Nov, Other chronic pain 338.29 [facility] [address] [id number] [address] [place] [address], [place] [address] October, [facility] [address] [id number] [address] [place] [address], [place] [address] October, [facility] [address] [id number] [address] [place] [address], [place] [address] Sep, [facility] [address] [id number] [address] [place] [address], [place] [address] Sep, [facility] [address] [id number] [address] [place] [address], [place] [address] Aug, [facility] [address] [id number] [address] [place] [address], [place] [address] Aug, [facility] [address] [id number] [address] [place] [address], [place] [address] Aug, [facility] [address] [id number] [address] [place] [address], [place] [address] 23 Aug, 2014 [facility] [address] [id number] [address] [place] [address], [place] [address] 22 Aug, 2014 [facility] [address] [id number] [address] [place] [address], [place] [address] 20 Aug, 2014 [facility] [address] [id number] [address] [place] [address], [place] [address] 19 Aug, 2014 [facility] [address] [id number] [address] [place] [address], [place] [address] Aug, [facility] [address] [id number] [address] [place] [address], [place] [address] Aug, [facility] [address] [id number] [address] [place] [address], [place] [address] Aug, [facility] [address] [id number] [address] [place] [address], [place] [address] Aug, [facility] [address] [id number] [address] [place] [address], [place] [address] Aug, [facility] [address] [id number] [address] [place] [address], [place] [address] Aug, [facility] [address] [id number] [address] [place] [address], [place] [address] Aug, [facility] [address] [id number] [address] [place] [address], [place] [address] Jul, [facility] [address] [id number] [address] [place] [address], [place] [address] Jul, [facility] [address] [id number] [address] [place] [address], [place] [address] Jul, [facility] [address] [id number] [address] [place] [address], [place] [address] Jul, [facility] [address] [id number] [address] [place] [address], [place] [address] Jul, [facility] [address] [id number] [address] [place] [address], [place] [address] Jul, [facility] [address] [id number] [address] [place] [address], [place] [address] Jun, [facility] [address] [id number] [address] [place] [address], [place] [address] Jun, [facility] [address] [id number] [address] [place] [address], [place] [address] Jun, [facility] [address] [id number] [address] [place] [address], [place] [address] Jun, [facility] [address] [id number] [address] [place] [address], [place] [address] May, [facility] [address] [id number] [address] [place] [address], [place] [address] May, [facility] [address] [id number] [address] [place] [address], [place] [address] May, [facility] [address] [id number] [address] [place] [address], [place] [address] May, [facility] [address] [id number] [address] [place] [address], [place] [address] May, [facility] [address] [id number] [address] [place] [address], [place] [address] May, [facility] [address] [id number] [address] [place] [address], [place] [address] May, [facility] [address] [id number] [address] [place] [address], [place] [address] May, [facility] [address] [id number] [address] [place] [address], [place] [address] May, [facility] [address] [id number] [address] [place] [address], [place] [address] May, [facility] [address] [id number] [address] [place] [address], [place] [address] Apr, [facility] [address] [id number] [address] [place] [address], [place] [address] Apr, [facility] [address] [id number] [address] [place] [address], [place] [address] Apr, [facility] [address] [id number] [address] [place] [address], [place] [address] Apr, [facility] [address] [id number] [address] [place] [address], [place] [address] Apr, [facility] [address] [id number] [address] [place] [address], [place] [address] Apr, [facility] [address] [id number] [address] [place] [address], [place] [address] Apr, [facility] [address] [id number] [address] [place] [address], [place] [address] Apr, [facility] [address] [id number] [address] [place] [address], [place] [address] Apr, [facility] [address] [id number] [address] [place] [address], [place] [address] Mar, [facility] [address] [id number] [address] [place] [address], [place] [address] Mar, [facility] [address] [id number] [address] [place] [address], [place] [address] Mar, [facility] [address] [id number] [address] [place] [address] Mar, [facility] [address] [id number] [address] [place] [address], [place] [address] Mar, [facility] [address] [id number] [address] [place] [address] Mar, [facility] [address] [id number] [address] [place] [address] Mar, [facility] [address] [id number] [address] [place] [address] Mar, [facility] [address] [id number] [address] [place] [address], [place] [address] Feb, [facility] [address] [id number] [address] [place] [address], [place] [address] 30 Feb, 2014 [facility] [address] [id number] [address] [place] [address] 24 Feb, 2014 [facility] [address] [id number] [address] [place] [address] 24 Feb, 2013 [facility] [address] [id number] [facility] [place] [address] 22 Feb, 2013 [facility] [address] [id number] [address] [place] [address], [place] [address] Feb, 2013 [facility] [address] [id number] [address] [place] [address], [place] [address] 10 Feb, 2013 [facility] [address] [id number] [address] [place] [address], [place] [address] 10 Feb, 2013 [facility] [address] [id number] [address] [place] [address], [place] [address] Feb, 2013 [facility] [address] [id number] [address] [place] [address], [place] [address] Feb, 2013 [facility] [address] [id number] [address] [place] [address], [place] [address] Feb, 2013 [facility] [address] [id number] [address] [place] [address], [place] [address] Feb, 2013 [facility] [address] [id number] [address] [place] [address], [place] [address] Feb, 2013 [facility] [address] [id number] [address] [place] [address], [place] [address] Feb, 2013 [facility] [address] [id number] [address] [place] [address], [place] [address] Jan, [facility] [address] [id number] [address] [place] [address], [place] [address] Jan, [facility] [address] [id number] [address] [place] [address], [place] [address] Dec, [facility] [address] [id number] [address] [place] [address], [place] [address] Dec, [facility] [address] [id number] [address] [place] [address], [place] [address] Dec, [facility] [address] [id number] [facility] [place] [address] Dec, 2013 [facility] [address] [id number] [address] [place] [address], [place] [id number] Dec, 2013 [facility] [address] [id number] [facility] [place] [address] Dec, 2013 [facility] [address] [id number] [address] [place] [address], [place] [address] Dec, 2013 [facility] [address] [id number] [address] [place] [address], [place] [address] Dec, 2013 [facility] [address] [id number] [address] [place] [address], [place] [address] Dec, 2013 [facility] [address] [id number] [address] [place] [address], [place] [address] Dec, 2013 [facility] [address] [id number] [address] [place] [address], [place] [address] Dec, 2013 [facility] [address] [id number] [address] [place] [address], [place] [address] Dec, 2013 [facility] [address] [id number] [address] [place] [address], [place] [address] Dec, [facility] [address] [id number] [address] [place] [address], [place] [address] Dec, [facility] [address] [id number] [address] [place] [address], [place] [address] Dec, 2013 [facility] [address] [id number] [address] [place] [address], [place] [address] Dec, 2013 [facility] [address] [id number] [address] [place] [address], [place] [address] Dec, [facility] [address] [id number] [address] [place] [address], [place] [address] Dec, [facility] [address] [id number] [address] [place] [address], [place] [address] Dec, [facility] [address] [id number] [facility] [place] [address] Nov, [facility] [address] [id number] [address] [place] [address], [place] [address] Nov, [facility] [address] [id number] [address] [place] [address], [place] [address] Nov, [facility] [address] [id number] [address] [place] [address], [place] [address] Nov, [facility] [address] [id number] [address] [place] [address], [place] [address] Nov, [facility] [address] [id number] [address] [place] [address], [place] [address] Nov, [facility] [address] [id number] [address] [place] [address], [place] [address] Nov, [facility] [address] [id number] [address] [place] [address], [place] [address] Nov, [facility] [address] [id number] [address] [place] [address], [place] [address] Nov, [facility] [address] [id number] [address] [place] [address], [place] [address] October, [facility] [address] [id number] [address] [place] [address], [place] [address] October, [facility] [address] [id number] [address] [place] [address], [place] [address] October, [facility] [address] [id number] [address] [place] [address], [place] [address] October, [facility] [address] [id number] [address] [place] [address], [place] [address] October, [facility] [address] [id number] [address] [place] [address], [place] [address] October, [facility] [address] [id number] [address] [place] [address], [place] [address] October, [facility] [address] [id number] [address] [place] [address], [place] [address] October, [facility] [address] [id number] [address] [place] [address], [place] [address] Sep, [facility] [address] [id number] [address] [place] [address], [place] [address] Sep, [facility] [address] [id number] [address] [place] [address], [place] [address] Sep, [facility] [address] [id number] [address] [place] [address], [place] [address] Sep, [facility] [address] [id number] [address] [place] [address], [place] [address] Sep, [facility] [address] [id number] [address] [place] [address], [place] [address] Sep, [facility] [address] [id number] [address] [place] [address], [place] [address] Sep, [facility] [address] [id number] [address] [place] [address], [place] [address] Aug, [facility] [address] [id number] [address] [place] [address], [place] [address] Aug, [facility] [address] [id number] [address] [place] [address], [place] [address] Aug, [facility] [address] [id number] [address] [place] [address], [place] [address] Aug, [facility] [address] [id number] [address] [place] [address], [place] [address] Aug, [facility] [address] [id number] [address] [place] [address], [place] [address] Aug, [facility] [address] [id number] [address] [place] [address], [place] [address] Jul, [facility] [address] [id number] [address] [place] [address], [place] [address] Jul, [facility] [address] [id number] [address] [place] [address], [place] [address] Jul, [facility] [address] [id number] [address] [place] [address], [place] [address] Jul, [facility] [address] [id number] [address] [place] [address], [place] [address] Jul, [facility] [address] [id number] [address] [place] [address], [place] [address] Jul, [facility] [address] [id number] [address] [place] [address], [place] [address] Jun, [facility] [address] [id number] [address] [place] [address], [place] [address] Jun, [facility] [address] [id number] [address] [place] [address], [place] [address] Jun, [facility] [address] [id number] [address] [place] [address], [place] [address] Jun, [facility] [address] [id number] [address] [place] [address], [place] [address] Jun, [facility] [address] [id number] [address] [place] [address], [place] [address] Jun, [facility] [address] [id number] [address] [place] [address], [place] [address] Jun, [facility] [address] [id number] [address] [place] [address], [place] [address] Jun, [facility] [address] [id number] [address] [place] [address], [place] [address] Jun, [facility] [address] [id number] [address] [place] [address], [place] [address] Jun, [facility] [address] [id number] [address] [place] [address], [place] [address] 14 Jun, 2013 [facility] [address] [id number] [address] [place] [address], [place] [address] 14 Jun, 2013 [facility] [address] [id number] [address] [place] [address], [place] [address] 14 Jun, 2013 [facility] [address] [id number] [address] [place] [address], [place] [address] 30 May, 2013 [facility] [address] [id number] [address] [place] [address], [place] [address] 30 May, 2013 [facility] [address] [id number] [address] [place] [address], [place] [address] 30 May, 2013 [facility] [address] [id number] [address] [place] [address], [place] [address] 30 May, 2013 [facility] [address] [id number] [address] [place] [address], [place] [address] May, [facility] [address] [id number] [address] [place] [address], [place] [address] May, [facility] [address] [id number] [address] [place] [address], [place] [address] May, [facility] [address] [id number] [address] [place] [address], [place] [address] May, [facility] [address] [id number] [address] [place] [address], [place] [address] May, [facility] [address] [id number] [address] [place] [address], [place] [address] May, [facility] [address] [id number] [address] [place] [address], [place] [address] May, [facility] [address] [id number] [address] [place] [address], [place] [address] May, [facility] [address] [id number] [address] [place] [address], [place] [address] May, [facility] [address] [id number] [address] [place] [address], [place] [address] 09 May, 2012 [facility] [address] [id number] [address] [place] [address], [place] [address] 09 May, 2013 [facility] [address] [id number] [address] [place] [address], [place] [address] 08 May, 2013 [facility] [address] [id number] [address] [place] [address], [place] [address] 07 May, 2012 [facility] [address] [id number] [address] [place] [address], [place] [address] 06 May, 2012 [facility] [address] [id number] [address] [place] [address], [place] [address] May, [facility] [address] [id number] [address] [place] [address], [place] [address] May, [facility] [address] [id number] [address] [place] [address], [place] [address] May, [facility] [address] [id number] [address] [place] [address], [place] [address] Apr, [facility] [address] [id number] [address] [place] [address], [place] [address] Apr, [facility] [address] [id number] [address] [place] [address], [place] [address] Apr, [facility] [address] [id number] [address] [place] [address], [place] [address] Apr, [facility] [address] [id number] [address] [place] [address], [place] [address] 08 Mar, 2013 [facility] [address] [id number] [address] [place] [address], [place] [address] 23 Feb, 2013 [facility] [address] [id number] [address] [place] [address], [place] [address] 16 Sep2012 [facility] [address] [id number] [address] [place] [address], [place] [address] Feb, [facility] [address] [id number] [address] [place] [address], [place] [address] Feb, [facility] [address] [id number] [address] [place] [address], [place] [address] Feb, [facility] [address] [id number] [address] [place] [address], [place] [address] Feb, [facility] [address] [id number] [address] [place] [address], [place] [address] Jan, [facility] [address] [id number] [address] [place] [address], [place] [address] Jan, [facility] [address] [id number] [address] [place] [address], [place] [address] Jan, [facility] [address] [id number] [address] [place] [address], [place] [address] Dec, [facility] [address] [id number] [address] [place] [address], [place] [address] Dec, [facility] [address] [id number] [address] [place] [address], [place] [address] Dec, [facility] [address] [id number] [address] [place] [address], [place] [address] Dec, [facility] [address] [id number] [address] [place] [address], [place] [address] Dec, [facility] [address] [id number] [address] [place] [address], [place] [address] Nov, [facility] [address] [id number] [address] [place] [address], [place] [address] Nov, [facility] [address] [id number] [address] [place] [address], [place] [address] Nov, [facility] [address] [id number] [address] [place] [address], [place] [address] Nov, [facility] [address] [id number] [address] [place] [address], [place] [address] 12 Nov, 2012 [facility] [address] [id number] [address] [place] [address], [place] [address] 08 Nov, 2012 [facility] [address] [id number] [address] [place] [address], [place] [address] 07 Nov, 2012 [facility] [address] [id number] [address] [place] [address], [place] [address] Nov, [facility] [address] [id number] [address] [place] [address], [place] [address] Nov, [facility] [address] [id number] [address] [place] [address], [place] [address] Nov, [facility] [address] [id number] [address] [place] [address], [place] [address] October, [facility] [address] [id number] [address] [place] [address], [place] [address] October, [facility] [address] [id number] [address] [place] [address], [place] [address] Sep, [facility] [address] [id number] [address] [place] [address], [place] [address] Sep, [facility] [address] [id number] [address] [place] [address], [place] [address] Sep, [facility] [address] [id number] [address] [place] [address], [place] [address] Sep, [facility] [address] [id number] [address] [place] [address], [place] [address] Sep, [facility] [address] [id number] [address] [place] [address], [place] [address] Aug, [facility] [address] [id number] [address] [place] [address], [place] [address] Aug, [facility] [address] [id number] [address] [place] [address], [place] [address] Jul, [facility] [address] [id number] [address] [place] [address], [place] [address] Jul, [facility] [address] [id number] [address] [place] [address], [place] [address] Jun, [facility] [address] [id number] [address] [place] [address], [place] [address] Jun, [facility] [address] [id number] [address] [place] [address], [place] [address] May, [facility] [address] [id number] [address] [place] [address], [place] [address] May, [facility] [address] [id number] [address] [place] [address], [place] [address] May, [facility] [address] [id number] [address] [place] [address], [place] [address] May, [facility] [address] [id number] [address] [place] [address], [place] [address] Apr, [facility] [address] [id number] [address] [place] [address], [place] [address] Apr, [facility] [address] [id number] [address] [place] [address], [place] [address] Apr, [facility] [address] [id number] [address] [place] [address], [place] [address] Apr, [facility] [address] [id number] [address] [place] [address], [place] [address] Apr, [facility] [address] [id number] [address] [place] [address], [place] [address] Apr, [facility] [address] [id number] [address] [place] [address], [place] [address] Apr, [facility] [address] [id number] [address] [place] [address], [place] [address] Apr, [facility] [address] [id number] [address] [place] [address] Apr, [facility] [address] [id number] [address] [place] [address], [place] [address] Mar, [facility] [address] [id number] [address] [place] [address], [place] [address] Mar, [facility] [address] [id number] [address] [place] [address], [place] [address] Feb, [facility] [address] [id number] [address] [place] [address], [place] [address] Jan, [facility] [address] [id number] [address] [place] [address], [place] [address] Jan, [facility] [address] [id number] [address] [place] [address], [place] [address] Dec, [facility] [address] [id number] [address] [place] [address], [place] [address] Nov, [facility] [address] [id number] [address] [place] [address], [place] [address] Nov, [facility] [address] [id number] [address] [place] [address], [place] [address] October, [facility] [address] [id number] [address] [place] [address], [place] [address] October, [facility] [address] [id number] [address] [place] [address], [place] [address] Sep, [facility] [address] [id number] [address] [place] [address], [place] [address] Sep, [facility] [address] [id number] [address] [place] [address], [place] [address] May, [facility] [address] [id number] [address] [place] [address], [place] [address] Apr, [facility] [address] [id number] [address] [place] [address], [place] [address] Apr, [facility] [address] [id number] [address] [place] [address] 15 Apr, 2011 [facility] [address] [id number] [address] [place] [address] 15 Apr, 2011 [facility] [address] [id number] [address] [place] [address] Apr, [facility] [address] [id number] [address] [place] [address] Apr, [facility] [address] [id number] [address] [place] [address] Apr, [facility] [address] [id number] [address] [place] [address] Apr, [facility] [address] [id number] [address] [place] [address] Mar, [facility] [address] [id number] [address] [place] [address] Mar, [facility] [address] [id number] [address] [place] [address] Mar, [facility] [address] [id number] [address] [place] [address] Mar, [facility] [address] [id number] [address] [place] [address] Mar, [facility] [address] [id number] [address] [place] [address] Mar, IMMUNIZATIONS No Known Immunizations SOCIAL HISTORY [...] tubal ligation Hospitalization History Mental floor at [facility]
--- OUTSIDE RECORDS SUMMARY | 2019-12-24 19:39 | XMS REPORT ---
Author Author Trey POLK Organization [facility] Address [address] [place] [address] Care Team Providers Care Inspector Water Pollution Control Name Role Phone SYBIL POLK Unavailable PROBLEMS Type Condition ICD9-CM Code DWP24-BU Code Onset Dates Condition S tatus SNOMED Code Problem Unspecified epilepsy without mention of intractable ep ilepsy G40.909 Active 07517780 Problem Hypertension I10 Active 3735919 3 Problem Other chronic pain G89.29 Active 1 32691710 Problem Rheumatoid arthritis M06.9 Active 17795505 Problem Hyperlipidemia, unspecified E78.5 Ac tive 24641799 Problem Depressive disorder F32.9 Active 97531583 Problem Esophageal reflux K21.9 Active 23 1784278 Problem Carpal tunnel syndrome of left wrist G56.02 Active 132362705353834 Problem Presbyopia H52.4 Active 87464796 Problem Cough R05 Active 67476144 Problem Nondependent 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 Ac tive 355314898 Problem Unspecified open-angle glaucoma, stage unspecified H40.10X0 Feb, Active 74940781 Problem Anxiety disorder, unspecified F41.9 Active 069392945 Problem Insomnia G47.00 Active 450401086 Problem Neuropathy G62.9 Active 796610240 Problem Thyroid nodule E04.1 Active 67579 5005 Problem Multinodular goiter E04.2 Active 760258455 Problem Chronic tension-type headache, intractable G44.221 Active 986893268 Problem Acquired hypothyroidism E03.9 Active 085024863 Problem Goiter E04.9 Active 5425176 Problem Chronic obstructive pulmonary disease, unspecified COPD ty pe J44.9 Active 68997445 Problem Reactive airway disease with out complication, unspecified asthma severity, unspecified whether persistent J45.909 Active 620558711571 Problem BMI 40.0-44.9, adult Z68.41 Active 964469034 Problem Essential hypertension I10 Active 57282953 Problem Right-sided low back pain without sciatica M54.5 Active 916894203 Problem Tension headache G44.209 Active 398 800583 Problem Depression F32.9 Active 85880650 Problem Arthralgia M25.50 Active 32084805 Problem Urge incontinence of urine N39.41 Act chen 78712328 Problem Abnormal laboratory test R89.9 Activ e 444245834 Problem COPD with exacerbation J44.1 Active 845037734 Problem Seasonal allergic rhinitis due to pollen J30.1 Active 88465679 ALLERGIES No Information ENCOUNTERS Encounter Location Date Diagnosis [facility] [id number] [place] [address] Sep, Acquired hypothyroidism E03. 9 ; Tension headache G44.209 ; Essential hypertension I10 ; Multinodular goiter E04.2 and BMI 40.0-44.9, adult Z68.41 [place] [address] [place] [address] Aug, Pelvic pain R10.2 ; Other sp ecified bacterial agents as the cause of diseases classified elsewhere B96.89 and Acute vaginitis N76.0 [facility] [id number] [place] [address] Apr, Bronchitis J40 [facility] [address] [place] [address] Apr, Acute gastritis without hemo rrhage, unspecified gastritis type K29.00 [facility] [address] [place] [address] Mar, [facility] [address] [place] [address] Feb, [place] [address] [place] [address] Feb, Mass of right side of neck R 22.1 and Multinodular goiter E04.2 [facility] [id number] [place] [address] Jan, Bronchitis J40 [facility] [address] [address] October, Acquired hypothyroidism E03. 9 [place] [address] [address] October, Acute gastritis without hemo rrhage, unspecified gastritis type K29.00 ; Epigastric pain R10.13 ; Essential hypertension I10 ; Screening for colon cancer Z12.11 and BMI 40.0-44.9, adult Z68.41 [place] [address] [address] October, [facility] [place] [address] [address] October, Chest pain R07.9 and Morbid obesity E66.01 [facility] [place] [address] [address] Sep, Generalized abdominal pain R 10.84 ; Morbid obesity E66.01 ; Non-intractable vomiting with nausea, unspecified vomiting type R11.2 and Seasonal allergic rhinitis due to pollen J30.1 [facility] [place] [address] [address] Jul, COPD with exacerbation J44.1 ; Viral upper respiratory tract infection J06.9 and Morbid obesity E66.01 [facility] [place] [address] [address] Jun, Viral upper respiratory trac t infection J06.9 [place] [address] [place] [address] Apr, Abnormal laboratory test R89 .9 [place] [address] [address] Apr, Abnormal laboratory test R89 .9 [place] [address] [address] Apr, Abnormal laboratory test R89 .9 [place] [address] [address] Apr, [place] [address] [address] Apr, [place] [address] [address] Apr, Nonintractable episodic head ache, unspecified headache type R51 ; Urge incontinence of urine N39.41 ; BMI 40.0-44.9, adult Z68.41 ; Myalgia M79.10 and Acute cystitis without hematuria N30.00 [place] [address] [address] 31 Mar, 2018 Nasal congestion R09.81 ; Lo w back pain M54.5 ; Reactive airway disease without complication, unspecified asthma severity, unspecified whether persistent J45.909 ; Other chronic pain G89.29 ; Acute cystitis with hematuria N30.01 and BMI 40.0-44.9, adult Z68.41 [place] [address] [address] Mar, Acute cystitis with hematuri a N30.01 [facility] [address] [address] Mar, BMI 40.0-44.9, adult Z68.41 ; Acute cystitis with hematuria N30.01 ; Acute bilateral low back pain without sciatica M54.5 and Nausea R11.0 [place] [address] [address] Mar, Hypertension I10 ; Acquired hypothyroidism E03.9 ; Esophageal reflux K21.9 ; Chronic obstructive pulmonary disease, unspecified COPD type J44.9 and BMI 40.0-44.9, adult Z68.41 [place] [address] [address] Mar, Hypertension I10 [place] [address] [address] Nov, Hyperlipidemia, unspecified E78.5 [place] [address] [place] [id number] [place] [address] October, Chest pain, unspecified type R07.9 and Acquired hypothyroidism E03.9 [place] [address] [place] [id number] [place] [address] October, Chest pain, unspecified type R07.9 ; Family history of coronary artery disease Z82.49 ; Carpal tunnel syndrome of left wrist G56.02 ; Hypertension I10 ; Esophageal reflux K21.9 ; Arthralgia M25.50 ; Acquired hypothyroidism E03.9 ; Cough R05 ; Nausea R11.0 ; Weight gain R63.5 and BMI 45.0-49.9, adult Z68.42 [place] [address] [address] Jun, Acquired hypothyroidism E03. 9 and Cough R05 [place] [address] [address] May, [place] [address] [address] Feb, Tarsal tunnel syndrome of timi th lower extremities G57.53 and Neuropathy G62.9 [place] [address] [address] Dec, Pleuritis R09.1 [place] [address] [address] Nov, [place] [address] [address] October, Arthralgia, unspecified join t M25.50 and Allergy, initial encounter T78.40XA [place] [address] [place] [id number] [place] [address] October, [place] [address] [address] October, Acute recurrent maxillary si nusitis J01.01 and Arthralgia M25.50 [place] [address] [address] Sep, Pharyngitis due to other org anism J02.8 [place] [address] [place] [id number] [place] [address] Aug, Acute nasopharyngitis J00 [place] [address] [address] 10 Aug, 2016 Multinodular goiter E04.2 [place] [address] [address] Aug, Thyroid nodule E04.1 [place] [address] [place] [id number] [place] [address] 17 Jul, 2016 Tarsal tunnel syndrome of timi th lower extremities G57.53 [place] [address] [address] Jun, Pneumonia due to infectious organism, unspecified laterality, unspecified part of lung J18.9 [place] [address] [address] Jun, Bronchospasm with bronchitis , acute J20.9 [place] [address] [address] May, Acute non-recurrent frontal sinusitis J01.10 [place] [address] [address] [place] [address] May, Flat foot [pes planus] (acqu ired), left foot M21.42 ; Flat foot [pes planus] (acquired), right foot M21.41 and Neuropathy G62.9 [place] [address] [place] [id number] [place] [address] Apr, Chronic tension-type headach e, intractable G44.221 ; Right lower quadrant abdominal pain R10.31 ; Cervicalgia M54.2 ; Acute gastritis without hemorrhage, unspecified gastritis type K29.00 and Hypertension I10 [place] [address] [place] [id number] [place] [address] Mar, Depression F32.9 and Anxiety disorder, unspecified F41.9 [place] [address] [place] [id number] [place] [address] Feb, Depressive disorder F32.9 an d Anxiety disorder, unspecified F41.9 [place] [address] [id number] [place] [address] Jan, Dysuria R30.0 ; Lower abdomi nal pain R10.30 ; Acute bilateral low back pain without sciatica M54.5 ; Nausea and vomiting, unspecified intactability, vomiting of unspecified type R11.2 ; Pain in right foot M79.671 and Pain of left foot M79.672 [place] [address] [address] Dec, Urinary tract infection, sit e not specified N39.0 [place] [address] [place] [id number] [place] [address] Dec, [place] [address] [address] Nov, [place] [address] [address] Nov, Dysuria R30.0 [place] [address] [place] [id number] [place] [address] Nov, Dysuria R30.0 and Acute cyst itis with hematuria N30.01 [place] [address] [address] October, Nausea R11.0 [place] [address] [place] [id number] [place] [address] October, Thyroid nodule E04.1 ; Carpa l tunnel syndrome, left upper limb G56.02 ; Carpal tunnel syndrome, right upper limb G56.01 and Constipation, unspecified constipation type K59.00 [place] [address] [address] October, [place] [address] [address] October, Thyroid nodule E04.1 [place] [address] [address] October, Cold thyroid nodule E04.1 [place] [address] [address] October, [place] [address] [address] Sep, Thyroid nodule E04.1 [place] [address] [address] Sep, Thyroid nodule E04.1 [place] [address] [address] Sep, Thyroid nodule E04.1 ; Hyper tension I10 ; Esophageal reflux K21.9 and Hyperlipidemia, unspecified E78.5 [place] [address] [address] Aug, Other chronic pain G89.29 ; Sinusitis J32.9 and Hypertension I10 [place] [address] [address] Jul, [place] [address] [address] Jul, [place] [address] [address] Jul, Insomnia G47.00 and Arthralg ia M25.50 [place] [address] [address] Jul, Depressive disorder F32.9 an d Anxiety disorder, unspecified F41.9 [facility] [address] [facility] [id number] [place] [address] May, Right-sided low back pain wi thout sciatica M54.5 and Depression F32.9 [facility] [address] [facility] [id number] [place] [address] Apr, Hematuria R31.9 [facility] [address] [facility] [id number] [place] [address] Mar, Other chronic pain G89.29 [facility] [address] [facility] [id number] [place] [address] Mar, Other chronic pain G89.29 [facility] [address] [id number] [place] [address] Feb, [facility] [address] [id number] [place] [address] Feb, Other chronic pain 338.29 ; Dysuria 788.1 ; UTI (urinary tract infection) 599.0 ; Insomnia 780.52 ; Hot flashes 627.2 and Hypertension 401.9 [facility] [id number] [place] [address] Feb, Dysuria 788.1 [facility] [id number] [place] [address] Feb, [facility] [address] [facility] [id number] [place] [address] Jan, [facility] [address] [facility] [id number] [place] [address] Jan, [facility] [id number] [place] [address] Jan, Fibromyalgia 729.1 ; Hyperte nsion 401.9 ; Dysthymia 300.4 and Hot flashes 627.2 [facility] [id number] [place] [address] Dec, [facility] [address] [id number] [address] [place] [address], [place] [address] Dec, [facility] [address] [id number] [address] [place] [address], [place] [address] Dec, [facility] [address] [id number] [address] [place] [address], [place] [address] Nov, Other chronic pain 338.29 [facility] [address] [id number] [address] [place] [address], [place] [address] October, [facility] [address] [id number] [address] [place] [address], [place] [address] October, [facility] [address] [id number] [address] [place] [address], [place] [address] Sep, [facility] [address] [id number] [address] [place] [address], [place] [address] Sep, [facility] [address] [id number] [address] [place] [address], [place] [address] Aug, [facility] [address] [id number] [address] [place] [address], [place] [address] Aug, [facility] [address] [id number] [address] [place] [address], [place] [address] Aug, [facility] [address] [id number] [address] [place] [address], [place] [address] Aug, [facility] [address] [id number] [address] [place] [address], [place] [address] Aug, [facility] [address] [id number] [address] [place] [address], [place] [address] Aug, [facility] [address] [id number] [address] [place] [address], [place] [address] Aug, [facility] [address] [id number] [address] [place] [address] Aug, [facility] [address] [id number] [address] [place] [address], [place] [address] Aug, [facility] [address] [id number] [address] [place] [address], [place] [address] Aug, [facility] [address] [id number] [address] [place] [address], [place] [address] Aug, [facility] [address] [id number] [address] [place] [address], [place] [address] Aug, [facility] [address] [id number] [address] [place] [address], [place] [address] Aug, [facility] [address] [id number] [address] [place] [address], [place] [address] Aug, [facility] [address] [id number] [address] [place] [address], [place] [address] Jul, [facility] [address] [id number] [address] [place] [address], [place] [address] Jul, [facility] [address] [id number] [address] [place] [address], [place] [address] Jul, [facility] [address] [id number] [address] [place] [address], [place] [address] Jul, [facility] [address] [id number] [address] [place] [address], [place] [address] Jul, [facility] [address] [id number] [address] [place] [address], [place] [address] Jul, [facility] [address] [id number] [address] [place] [address], [place] [address] Jun, [facility] [address] [id number] [address] [place] [address], [place] [address] Jun, [facility] [address] [id number] [address] [place] [address], [place] [address] Jun, [facility] [address] [id number] [address] [place] [address], [place] [address] Jun, [facility] [address] [id number] [address] [place] [address], [place] [address] May, [facility] [address] [id number] [address] [place] [address], [place] [address] May, [facility] [address] [id number] [address] [place] [address], [place] [address] May, [facility] [address] [id number] [address] [place] [address], [place] [address] May, [facility] [address] [id number] [address] [place] [address], [place] [address] May, [facility] [address] [id number] [address] [place] [address], [place] [address] May, [facility] [address] [id number] [address] [place] [address], [place] [address] May, [facility] [address] [id number] [address] [place] [address], [place] [address] May, [facility] [address] [id number] [address] [place] [address], [place] [address] May, [facility] [address] [id number] [address] [place] [address], [place] [address] May, [facility] [address] [id number] [address] [place] [address], [place] [address] Apr, [facility] [address] [id number] [address] [place] [address], [place] [address] Apr, [facility] [address] [id number] [address] [place] [address], [place] [address] Apr, [facility] [address] [id number] [address] [place] [address], [place] [address] Apr, [facility] [address] [id number] [address] [place] [address], [place] [address] Apr, [facility] [address] [id number] [address] [place] [address], [place] [address] 08 Apr, 2014 [facility] [address] [id number] [address] [place] [address], [place] [address] Apr, [facility] [address] [id number] [address] [place] [address], [place] [address] Apr, [facility] [address] [id number] [address] [place] [address], [place] [address] Apr, [facility] [address] [id number] [address] [place] [address], [place] [address] Mar, [facility] [address] [id number] [address] [place] [address], [place] [address] Mar, [facility] [address] [id number] [address] [place] [address], [place] [address] Mar, [facility] [address] [id number] [address] [place] [address], [place] [address] Mar, [facility] [address] [id number] [address] [place] [address], [place] [address] Mar, [facility] [address] [id number] [address] [place] [address], [place] [address] Mar, [facility] [address] [id number] [address] [place] [address], [place] [address] Mar, [facility] [address] [id number] [address] [place] [address], [place] [address] Mar, [facility] [address] [id number] [address] [place] [address], [place] [address] Feb, [facility] [address] [id number] [address] [place] [address], [place] [address] 30 Feb, 2014 [facility] [address] [id number] [address] [place] [address], [place] [address] 24 Feb, 2014 [facility] [address] [id number] [address] [place] [address], [place] [address] 24 Feb, 2013 [facility] [address] [id number] [facility] [place] [address] 22 Feb, 2013 [facility] [address] [id number] [address] [place] [address], [place] [address] Feb, 2013 [facility] [address] [id number] [address] [place] [address], [place] [address] Feb, 2013 [facility] [address] [id number] [address] [place] [address], [place] [address] 10 Feb, 2013 [facility] [address] [id number] [address] [place] [address], [place] [address] Feb, 2013 [facility] [address] [id number] [address] [place] [address], [place] [address] Feb, 2013 [facility] [address] [id number] [address] [place] [address], [place] [address] Feb, 2013 [facility] [address] [id number] [address] [place] [address], [place] [address] Feb, 2013 [facility] [address] [id number] [address] [place] [address], [place] [address] Feb, 2013 [facility] [place] [facility] [address] [id number] [address] [place] [address], [place] [address] Feb, 2013 [facility] [place] [facility] [address] [id number] [address] [place] [address], [place] [address] Jan, [facility] [place] [facility] [address] [id number] [address] [place] [address], [place] [address] Jan, [facility] [place] [facility] [address] [id number] [address] [place] [address], [place] [address] Dec, [facility] [place] [facility] [address] [id number] [address] [place] [address], [place] [address] Dec, [facility] [place] [facility] [address] [id number] [address] [place] [address], [place] [address] Dec, [facility] [place] [facility] [address] [id number] [address] [place] [address] Dec, 2013 [facility] [address] [id number] [address] [place] [address], [place] [id number] Dec, 2013 [facility] [address] [id number] [facility] [place] [address] Dec, 2013 [facility] [address] [id number] [address] [place] [address], [place] [address] Dec, 2013 [facility] [address] [id number] [address] [place] [address], [place] [address] Dec, 2013 [facility] [address] [id number] [address] [place] [address], [place] [address] Dec, 2013 [facility] [address] [id number] [address] [place] [address], [place] [address] Dec, 2013 [facility] [address] [id number] [address] [place] [address], [place] [address] Dec, 2013 [facility] [address] [id number] [address] [place] [address], [place] [address] Dec, 2013 [facility] [address] [id number] [address] [place] [address], [place] [address] Dec, 2013 [facility] [address] [id number] [address] [place] [address], [place] [address] Dec, 2013 [facility] [address] [id number] [address] [place] [address], [place] [address] Dec, 2013 [facility] [address] [id number] [address] [place] [address], [place] [address] Dec, 2013 [facility] [place] [facility] [address] [id number] [address] [place] [address], [place] [address] Dec, [facility] [address] [id number] [address] [place] [address], [place] [address] Dec, 2013 [facility] [address] [id number] [address] [place] [address], [place] [address] Dec, [facility] [address] [id number] [address] [place] [address], [place] [address] Nov, [facility] [address] [id number] [address] [place] [address], [place] [address] Nov, [facility] [address] [id number] [address] [place] [address], [place] [address] Nov, [facility] [address] [id number] [address] [place] [address], [place] [address] Nov, [facility] [address] [id number] [address] [place] [address], [place] [address] Nov, [facility] [address] [id number] [address] [place] [address], [place] [address] Nov, [facility] [address] [id number] [address] [place] [address], [place] [address] Nov, [facility] [address] [id number] [address] [place] [address], [place] [address] Nov, [facility] [address] [id number] [address] [place] [address], [place] [address] Nov, [facility] [address] [id number] [address] [place] [address], [place] [address] October, [facility] [address] [id number] [address] [place] [address], [place] [address] October, [facility] [address] [id number] [address] [place] [address], [place] [address] October, [facility] [address] [id number] [address] [place] [address], [place] [address] October, [facility] [address] [id number] [address] [place] [address], [place] [address] October, [facility] [address] [id number] [address] [place] [address], [place] [address] October, [facility] [address] [id number] [address] [place] [address], [place] [address] October, [facility] [address] [id number] [facility] [place] [address] October, [facility] [address] [id number] [address] [place] [address], [place] [address] Sep, [facility] [address] [id number] [address] [place] [address], [place] [address] Sep, [facility] [address] [id number] [address] [place] [address], [place] [address] Sep, [facility] [address] [id number] [address] [place] [address], [place] [address] Sep, [facility] [address] [id number] [address] [place] [address], [place] [address] Sep, [facility] [address] [id number] [address] [place] [address], [place] [address] Sep, [facility] [address] [id number] [address] [place] [address], [place] [address] Sep, [facility] [address] [id number] [address] [place] [address], [place] [address] Aug, [facility] [address] [id number] [address] [place] [address], [place] [address] Aug, [facility] [address] [id number] [address] [place] [address], [place] [address] Aug, [facility] [address] [id number] [address] [place] [address], [place] [address] Aug, [facility] [address] [id number] [address] [place] [address], [place] [address] Aug, [facility] [address] [id number] [address] [place] [address], [place] [address] Aug, [facility] [address] [id number] [address] [place] [address], [place] [address] Jul, [facility] [address] [id number] [address] [place] [address], [place] [address] Jul, [facility] [address] [id number] [address] [place] [address], [place] [address] Jul, [facility] [address] [id number] [address] [place] [address], [place] [address] Jul, [facility] [address] [id number] [address] [place] [address], [place] [address] Jul, [facility] [address] [id number] [address] [place] [address], [place] [address] Jul, [facility] [address] [id number] [address] [place] [address], [place] [address] Jun, [facility] [address] [id number] [address] [place] [address], [place] [address] Jun, [facility] [address] [id number] [address] [place] [address], [place] [address] Jun, [facility] [address] [id number] [address] [place] [address], [place] [address] Jun, [facility] [address] [id number] [address] [place] [address], [place] [address] Jun, [facility] [address] [id number] [address] [place] [address], [place] [address] Jun, [facility] [address] [id number] [address] [place] [address], [place] [address] Jun, [facility] [address] [id number] [address] [place] [address], [place] [address] Jun, [facility] [address] [id number] [address] [place] [address], [place] [address] Jun, [facility] [address] [id number] [address] [place] [address], [place] [address] Jun, [facility] [address] [id number] [address] [place] [address], [place] [address] 14 Jun, 2013 [facility] [address] [id number] [address] [place] [address], [place] [address] 14 Jun, 2013 [facility] [address] [id number] [address] [place] [address], [place] [address] 14 Jun, 2013 [facility] [address] [id number] [address] [place] [address], [place] [address] 30 May, 2013 [facility] [address] [id number] [address] [place] [address], [place] [address] 30 May, 2013 [facility] [address] [id number] [address] [place] [address], [place] [address] 30 May, 2013 [facility] [address] [id number] [address] [place] [address], [place] [address] May, [facility] [address] [id number] [address] [place] [address], [place] [address] May, [facility] [address] [id number] [address] [place] [address], [place] [address] May, [facility] [address] [id number] [address] [place] [address], [place] [address] May, [facility] [address] [id number] [address] [place] [address], [place] [address] May, [facility] [address] [id number] [address] [place] [address], [place] [address] May, [facility] [address] [id number] [address] [place] [address], [place] [address] May, [facility] [address] [id number] [address] [place] [address], [place] [address] May, [facility] [address] [id number] [address] [place] [address], [place] [address] May, [facility] [address] [id number] [address] [place] [address], [place] [address] May, [facility] [address] [id number] [address] [place] [address], [place] [address] 09 May, 2012 [facility] [address] [id number] [address] [place] [address], [place] [address] 09 May, 2013 [facility] [address] [id number] [address] [place] [address], [place] [address] 08 May, 2013 [facility] [address] [id number] [address] [place] [address], [place] [address] 07 May, 2012 [facility] [address] [id number] [address] [place] [address], [place] [address] 06 May, 2012 [facility] [address] [id number] [address] [place] [address], [place] [address] May, [facility] [address] [id number] [address] [place] [address], [place] [address] May, [facility] [address] [id number] [address] [place] [address], [place] [address] May, [facility] [address] [id number] [address] [place] [address], [place] [address] Apr, [facility] [address] [id number] [address] [place] [address], [place] [address] Apr, [facility] [address] [id number] [address] [place] [address], [place] [address] Apr, [facility] [address] [id number] [address] [place] [address], [place] [address] Apr, [facility] [address] [id number] [address] [place] [address], [place] [address] 08 Mar, 2013 [facility] [address] [id number] [address] [place] [address], [place] [address] 23 Feb, 2013 [facility] [address] [id number] [address] [place] [address], [place] [address] 16 Feb, 2013 [facility] [address] [id number] [address] [place] [address], [place] [address] 13 Feb, 2013 [facility] [address] [id number] [address] [place] [address], [place] [address] Feb, [facility] [address] [id number] [address] [place] [address], [place] [address] Feb, [facility] [address] [id number] [address] [place] [address], [place] [address] Feb, [facility] [address] [id number] [address] [place] [address], [place] [address] Jan, [facility] [address] [id number] [address] [place] [address], [place] [address] Jan, [facility] [address] [id number] [address] [place] [address], [place] [address] Jan, [facility] [address] [id number] [address] [place] [address], [place] [address] Dec, [facility] [address] [id number] [address] [place] [address], [place] [address] Dec, [facility] [address] [id number] [address] [place] [address], [place] [address] Dec, [facility] [address] [id number] [address] [place] [address], [place] [address] Dec, [facility] [address] [id number] [address] [place] [address], [place] [address] Dec, [facility] [address] [id number] [address] [place] [address], [place] [address] Nov, [facility] [address] [id number] [address] [place] [address], [place] [address] Nov, [facility] [address] [id number] [address] [place] [address], [place] [address] Nov, [facility] [address] [id number] [address] [place] [address], [place] [address] Nov, [facility] [address] [id number] [address] [place] [address], [place] [address] Nov, [facility] [address] [id number] [address] [place] [address], [place] [address] 08 Nov, 2012 [facility] [address] [id number] [address] [place] [address], [place] [address] Nov, [facility] [address] [id number] [address] [place] [address], [place] [address] Nov, [facility] [address] [id number] [address] [place] [address], [place] [address] Nov, [facility] [address] [id number] [address] [place] [address], [place] [address] Nov, [facility] [address] [id number] [address] [place] [address], [place] [address] October, [facility] [address] [id number] [address] [place] [address], [place] [address] October, [facility] [address] [id number] [address] [place] [address], [place] [address] Sep, [facility] [address] [id number] [address] [place] [address], [place] [address] Sep, [facility] [address] [id number] [address] [place] [address], [place] [address] Sep, [facility] [address] [id number] [address] [place] [address], [place] [address] Sep, [facility] [address] [id number] [address] [place] [address], [place] [address] Sep, [facility] [address] [id number] [address] [place] [address], [place] [address] Aug, [facility] [address] [id number] [address] [place] [address], [place] [address] Aug, [facility] [address] [id number] [address] [place] [address], [place] [address] Jul, [facility] [address] [id number] [address] [place] [address], [place] [address] Jul, [facility] [address] [id number] [address] [place] [address], [place] [address] Jun, [facility] [address] [id number] [address] [place] [address], [place] [address] Jun, [facility] [address] [id number] [address] [place] [address], [place] [address] May, [facility] [address] [id number] [address] [place] [address], [place] [address] May, [facility] [address] [id number] [address] [place] [address], [place] [address] May, [facility] [address] [id number] [address] [place] [address], [place] [address] May, [facility] [address] [id number] [address] [place] [address], [place] [address] Apr, [facility] [address] [id number] [address] [place] [address], [place] [address] 27 Apr, 2012 [facility] [address] [id number] [address] [place] [address], [place] [address] Apr, [facility] [address] [id number] [address] [place] [address], [place] [address] Apr, [facility] [address] [id number] [address] [place] [address], [place] [address] 20 Apr, 2012 [facility] [address] [id number] [address] [place] [address], [place] [address] 14 Apr, 2012 [facility] [address] [id number] [address] [place] [address], [place] [address] 14 Apr, 2012 [facility] [address] [id number] [address] [place] [address], [place] [address] 12 Apr, 2012 [facility] [address] [id number] [address] [place] [address] [address] Apr, [facility] [address] [id number] [address] [place] [address], [place] [address] Mar, [facility] [address] [id number] [address] [place] [address], [place] [address] Mar, [facility] [address] [id number] [address] [place] [address], [place] [address] Feb, [facility] [address] [id number] [address] [place] [address], [place] [address] Jan, [facility] [address] [id number] [address] [place] [address], [place] [address] Jan, [facility] [address] [id number] [address] [place] [address], [place] [address] Dec, [facility] [address] [id number] [address] [place] [address], [place] [address] Nov, [facility] [address] [id number] [address] [place] [address], [place] [address] Nov, [facility] [address] [id number] [address] [place] [address], [place] [address] October, [facility] [address] [id number] [address] [place] [address], [place] [address] October, [facility] [address] [id number] [address] [place] [address], [place] [address] Sep, [facility] [address] [id number] [address] [place] [address], [place] [address] Sep, [facility] [address] [id number] [address] [place] [address], [place] [address] May, [facility] [address] [id number] [address] [place] [address], [place] [address] Apr, [facility] [address] [id number] [address] [place] [address], [place] [address] Apr, [facility] [address] [id number] [address] [place] [address] 15 Apr, 2011 [facility] [address] [id number] [address] [place] [address] 15 Apr, 2011 [facility] [address] [id number] [address] [place] [address] 15 Apr, 2011 [facility] [address] [id number] [address] [place] [address] Apr, [facility] [address] [id number] [address] [place] [address] Apr, [facility] [address] [id number] [address] [place] [address] Apr, [facility] [address] [id number] [address] [place] [address] Mar, [facility] [address] [id number] [address] [place] [address] Mar, [facility] [address] [id number] [address] [place] [address] Mar, [facility] [address] [id number] [address] [place] [address] Mar, [facility] [address] [id number] [address] [place] [address] Mar, [facility] [address] [id number] [address] [place] [address] Mar, IMMUNIZATIONS No Known Immunizations SOCIAL HISTORY Never Assessed REASON FOR VISIT PLAN OF CARE VITAL SIGNS MEDICATIONS Unknown Medications RESULTS No Results PROCEDURES Procedure Date Ordered Result Body Site PSYCH DIAGNOSTIC EVALUATION January 04, 2014 INSTRUCTIONS MEDICATIONS ADMINISTERED No Known Medications MEDICAL (GENERAL) HISTORY Type Description Date Medical History HTN Medical History Depression Medical History Arthritis Medical History COPD Surgical History Breast lump removed Surgical History Removal of cyst from ovary Surgical History cholecystectomy Surgical History Stomach surgeryx3 Surgical History tubal ligation Hospitalization History Mental floor at [facility]
--- OUTSIDE RECORDS SUMMARY | 2019-12-24 19:40 | XMS REPORT ---
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 Name Role Phone SURESH ANDRADE Unavailable PROBLEMS Type Condition ICD9-CM Code [id number] Code Onset Dates Condition S tatus SNOMED Code Problem Nondependent 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 Ac tive 613493517 Problem Other chronic pain G89.29 Active 1 91327400 Problem Unspecified epilepsy without mention of intractable ep ilepsy G40.909 Active 76951386 Problem Hyperlipidemia, unspecified E78.5 Ac tive 82750004 Problem Hypertension I10 Active 0215928 3 Problem Esophageal reflux K21.9 Active 23 3032559 Problem Rheumatoid arthritis M06.9 Active 99078909 Problem Cough R05 Active 38857002 Problem Acquired hypothyroidism E03.9 Active 063958510 Problem Unspecified open-angle glaucoma, stage unspecified H40.10X0 Feb, Active 26713491 Problem Presbyopia H52.4 Active 88516102 Problem Insomnia G47.00 Active 236478555 Problem Arthralgia M25.50 Active 01561321 Problem Thyroid nodule E04.1 Active 50837 5005 Problem Anxiety disorder, unspecified F41.9 Active 372506869 Problem Chronic tension-type headache, intractable G44.221 Active 869676999 Problem Neuropathy G62.9 Active 331138455 Problem Goiter E04.9 Active 4433127 Problem Multinodular goiter E04.2 Active 896744142 Problem Carpal tunnel syndrome of left wrist G56.02 Active 311730109607952 Problem Chronic obstructive pulmonary disease, unspecified COPD ty pe J44.9 Active 24045685 Problem BMI 40.0-44.9, adult Z68.41 Active 918025076 Problem Seasonal allergic rhinitis due to pollen J30.1 Active 45571038 Problem Depression F32.9 Active 48619662 Problem Essential hypertension I10 Active 92129312 Problem Depressive disorder F32.9 Active 39602021 Problem Right-sided low back pain without sciatica M54.5 Active 164766904 Problem Reactive airway disease with out complication, unspecified asthma severity, unspecified whether persistent J45.909 Active 159429626275 Problem Urge incontinence of urine N39.41 Act chen 77329570 Problem Abnormal laboratory test R89.9 Activ e 762546146 Problem COPD with exacerbation J44.1 Active 303772656 ALLERGIES No Information ENCOUNTERS Encounter Location Date Diagnosis [place] [address] [address] Sep, [place] [address] [address] Aug, Pelvic pain R10.2 ; Other sp ecified bacterial agents as the cause of diseases classified elsewhere B96.89 and Acute vaginitis N76.0 [place] [address] [address] Apr, Bronchitis J40 [place] [address] [address] Apr, Acute gastritis without hemo rrhage, unspecified gastritis type K29.00 [place] [address] [place] [id number] [address] [place] [address] Mar, [facility] [address] [place] [id number] [address] [place] [address] Feb, [place] [address] [address] Feb, Mass of right side of neck R 22.1 and Multinodular goiter E04.2 [facility] [address] [place] [id number] [address] [place] [address] Jan, Bronchitis J40 [place] [address] [place] [id number] [place] [address] October, Acquired hypothyroidism E03. 9 [facility] [address] [place] [id number] [place] [address] October, Acute gastritis without hemo rrhage, unspecified gastritis type K29.00 ; Epigastric pain R10.13 ; Essential hypertension I10 ; Screening for colon cancer Z12.11 and BMI 40.0-44.9, adult Z68.41 [place] [address] [address] October, [facility] [place] [address] [address] October, Chest pain R07.9 and Morbid obesity E66.01 [facility] [place] [address] [address] Sep, Generalized abdominal pain R 10.84 ; Morbid obesity E66.01 ; Non-intractable vomiting with nausea, unspecified vomiting type R11.2 and Seasonal allergic rhinitis due to pollen J30.1 [facility] [place] [address] [address] Jul, COPD with exacerbation J44.1 ; Viral upper respiratory tract infection J06.9 and Morbid obesity E66.01 [facility] [place] [address] [address] Jun, Viral upper respiratory trac t infection J06.9 [place] [address] [address] Apr, Abnormal laboratory test R89 .9 [place] [address] [address] Apr, Abnormal laboratory test R89 .9 [place] [address] [address] Apr, Abnormal laboratory test R89 .9 [place] [address] [address] Apr, [place] [address] [address] Apr, [place] [address] [address] Apr, Nonintractable episodic head ache, unspecified headache type R51 ; Urge incontinence of urine N39.41 ; BMI 40.0-44.9, adult Z68.41 ; Myalgia M79.10 and Acute cystitis without hematuria N30.00 [place] [address] [address] Mar, Nasal congestion R09.81 ; Lo w back pain M54.5 ; Reactive airway disease without complication, unspecified asthma severity, unspecified whether persistent J45.909 ; Other chronic pain G89.29 ; Acute cystitis with hematuria N30.01 and BMI 40.0-44.9, adult Z68.41 [place] [address] [address] Mar, Acute cystitis with hematuri a N30.01 [facility] [address] [address] Mar, BMI 40.0-44.9, adult Z68.41 ; Acute cystitis with hematuria N30.01 ; Acute bilateral low back pain without sciatica M54.5 and Nausea R11.0 [place] [address] [address] Mar, Hypertension I10 ; Acquired hypothyroidism E03.9 ; Esophageal reflux K21.9 ; Chronic obstructive pulmonary disease, unspecified COPD type J44.9 and BMI 40.0-44.9, adult Z68.41 [place] [address] [address] Mar, Hypertension I10 [address] [address] Nov, Hyperlipidemia, unspecified E78.[address] [address] October, Chest pain, unspecified type R07.9 and Acquired hypothyroidism E03.9 [place] [address] [facility] [id number] [address] [place] [address] October, Chest pain, unspecified type R07.9 ; Family history of coronary artery disease Z82.49 ; Carpal tunnel syndrome of left wrist G56.02 ; Hypertension I10 ; Esophageal reflux K21.9 ; Arthralgia M25.50 ; Acquired hypothyroidism E03.9 ; Cough R05 ; Nausea R11.0 ; Weight gain R63.5 and BMI 45.0-49.9, adult Z68.42 [place] [address] [facility] [id number] [address] [place] [address] Jun, Acquired hypothyroidism E03. 9 and Cough R05 [place] [address] [place] [id number] [address] [place] [address] May, [place] [address] [address] Feb, Tarsal tunnel syndrome of timi th lower extremities G57.53 and Neuropathy G62.9 [place] [address] [place] [id number] [place] [address] Dec, Pleuritis R09.1 [place] [address] [place] [id number] [place] [address] Nov, [place] [address] [place] [id number] [place] [address] October, Arthralgia, unspecified join t M25.50 and Allergy, initial encounter T78.40XA [place] [address] [place] [id number] [place] [address] October, [place] [address] [place] [id number] [place] [address] October, Acute recurrent maxillary si nusitis J01.01 and Arthralgia M25.50 [place] [address] [place] [id number] [place] [address] Sep, Pharyngitis due to other org anism J02.8 [place] [address] [address] 30 Aug, 2016 Acute nasopharyngitis J00 [place] [address] [address] 10 Aug, 2016 Multinodular goiter E04.2 [place] [address] [address] 03 Aug, 2016 Thyroid nodule E04.1 [place] [address] [address] 17 Jul, 2016 Tarsal tunnel syndrome of timi th lower extremities G57.[address] [address] Jun, Pneumonia due to infectious organism, unspecified laterality, unspecified part of lung J18.9 [place] [address] [address] Jun, Bronchospasm with bronchitis , acute J20.[address] [address] May, Acute non-recurrent frontal sinusitis J01.[address] [address] May, Flat foot [pes planus] (acqu ired), left foot M21.42 ; Flat foot [pes planus] (acquired), right foot M21.41 and Neuropathy G62.[address] [address] Apr, Chronic tension-type headach e, intractable G44.221 ; Right lower quadrant abdominal pain R10.31 ; Cervicalgia M54.2 ; Acute gastritis without hemorrhage, unspecified gastritis type K29.00 and Hypertension I10 [address] [address] Mar, Depression F32.9 and Anxiety disorder, unspecified F41.9 [facility] [address] [place] [id number] [place] [address] Feb, Depressive disorder F32.9 an d Anxiety disorder, unspecified F41.9 [facility] [address] [place] [id number] [place] [address] Jan, Dysuria R30.0 ; Lower abdomi nal pain R10.30 ; Acute bilateral low back pain without sciatica M54.5 ; Nausea and vomiting, unspecified intactability, vomiting of unspecified type R11.2 ; Pain in right foot M79.671 and Pain of left foot M79.672 [place] [address] [place] [id number] [place] [address] Dec, Urinary tract infection, sit e not specified N39.0 [facility] [address] [place] [id number] [place] [address] Dec, [facility] [address] [place] [id number] [place] [address] Nov, [place] [address] [place] [id number] [place] [address] Nov, Dysuria R30.0 [place] [address] [place] [id number] [place] [address] Nov, Dysuria R30.0 and Acute cyst itis with hematuria N30.01 [facility] [address] [place] [id number] [place] [address] October, Nausea R11.0 [facility] [address] [place] [id number] [place] [address] October, Thyroid nodule E04.1 ; Carpa l tunnel syndrome, left upper limb G56.02 ; Carpal tunnel syndrome, right upper limb G56.01 and Constipation, unspecified constipation type K59.00 [facility] [address] [place] [id number] [place] [address] October, [place] [address] [place] [id number] [place] [address] October, Thyroid nodule E04.1 [facility] [address] [address] October, Cold thyroid nodule E04.1 [place] [address] [address] October, [place] [address] [address] Sep, Thyroid nodule E04.1 [place] [address] [address] Sep, Thyroid nodule E04.1 [place] [address] [address] Sep, Thyroid nodule E04.1 ; Hyper tension I10 ; Esophageal reflux K21.9 and Hyperlipidemia, unspecified E78.5 [place] [address] [address] Aug, Other chronic pain G89.29 ; Sinusitis J32.9 and Hypertension I10 [place] [address] [address] 29 Jul, 2015 [place] [address] [address] 15 Jul, 2015 [place] [address] [address] 10 Jul, 2015 Insomnia G47.00 and Arthralg ia M25.50 [place] [address] [address] 10 Jul, 2015 Depressive disorder F32.9 an d Anxiety disorder, unspecified F41.9 [place] [address] [address] May, Right-sided low back pain wi thout sciatica M54.5 and Depression F32.9 [facility] [address] [facility] [id number] [address] [place] [address] Apr, Hematuria R31.9 [facility] [address] [facility] [id number] [address] [place] [address] Mar, Other chronic pain G89.29 [facility] [address] [place] [id number] [address] [place] [address] Mar, Other chronic pain G89.29 [facility] [address] [facility] [id number] [address] [place] [address] Feb, [facility] [address] [place] [id number] [address] [place] [address] Feb, Other chronic pain 338.29 ; Dysuria 788.1 ; UTI (urinary tract infection) 599.0 ; Insomnia 780.52 ; Hot flashes 627.2 and Hypertension 401.9 [facility] [address] [place] [id number] [address] [place] [address] Feb, Dysuria 788.1 [facility] [address] [place] [id number] [place] [address] Feb, [facility] [address] [place] [id number] [address] [place] [address] Jan, [facility] [address] [place] [id number] [address] [place] [address] Jan, [facility] [address] [place] [id number] [address] [place] [address] Jan, Fibromyalgia 729.1 ; Hyperte nsion 401.9 ; Dysthymia 300.4 and Hot flashes 627.2 [facility] [address] [facility] [id number] [address] [place] [address] Dec, [facility] [address] [place] [id number] [address] [place] [address] Dec, [facility] [address] [id number] [address] [place] [address], [place] [address] Dec, [facility] [address] [id number] [address] [place] [address] Nov, Other chronic pain 338.29 [facility] [address] [id number] [address] [place] [address], [place] [address] October, [facility] [address] [id number] [address] [place] [address], [place] [address] October, [facility] [address] [id number] [address] [place] [address], [place] [address] Sep, [facility] [address] [id number] [address] [place] [address], [place] [address] Sep, [facility] [address] [id number] [address] [place] [address], [place] [address] Aug, [facility] [address] [id number] [address] [place] [address] Aug, [facility] [address] [id number] [address] [place] [address], [place] [address] Aug, [facility] [address] [id number] [address] [place] [address] Aug, [facility] [address] [id number] [address] [place] [address] Aug, [facility] [address] [id number] [address] [place] [address] Aug, [facility] [address] [id number] [address] [place] [address], [place] [address] Aug, [facility] [address] [id number] [address] [place] [address] Aug, [facility] [address] [id number] [address] [place] [address] 11 Aug, 2014 [facility] [address] [id number] [address] [place] [address] Aug, [facility] [address] [id number] [address] [place] [address], [place] [address] Aug, [facility] [address] [id number] [address] [place] [address], [place] [address] Aug, [facility] [address] [id number] [address] [place] [address], [place] [address] Aug, [facility] [address] [id number] [address] [place] [address], [place] [address] Aug, [facility] [address] [id number] [address] [place] [address], [place] [address] Jul, [facility] [address] [id number] [address] [place] [address], [place] [address] Jul, [facility] [address] [id number] [address] [place] [address], [place] [address] Jul, [facility] [address] [id number] [address] [place] [address], [place] [address] Jul, [facility] [address] [id number] [address] [place] [address], [place] [address] Jul, [facility] [address] [id number] [address] [place] [address], [place] [address] Jul, [facility] [address] [id number] [address] [place] [address], [place] [address] Jun, [facility] [address] [id number] [address] [place] [id number] Jun, [facility] [address] [id number] [address] [place] [address] Jun, [facility] [address] [id number] [address] [place] [address] Jun, [facility] [address] [id number] [address] [place] [address] May, [facility] [address] [id number] [address] [place] [address], [place] [address] May, [facility] [address] [id number] [address] [place] [address], [place] [address] May, [facility] [address] [id number] [address] [place] [address], [place] [address] May, [facility] [address] [id number] [address] [place] [address], [place] [address] May, [facility] [address] [id number] [address] [place] [address], [place] [address] May, [facility] [address] [id number] [address] [place] [address], [place] [address] May, [facility] [address] [id number] [address] [place] [address], [place] [address] May, [facility] [address] [id number] [address] [place] [address], [place] [address] May, [facility] [address] [id number] [address] [place] [address], [place] [address] May, [facility] [address] [id number] [address] [place] [address], [place] [address] Apr, [facility] [address] [id number] [address] [place] [address], [place] [address] Apr, [facility] [address] [id number] [address] [place] [address], [place] [address] Apr, [facility] [address] [id number] [address] [place] [address], [place] [address] Apr, [facility] [address] [id number] [address] [place] [address], [place] [address] Apr, [facility] [address] [id number] [address] [place] [address], [place] [address] Apr, [facility] [address] [id number] [address] [place] [address], [place] [address] 08 Apr, 2014 [facility] [address] [id number] [address] [place] [address], [place] [address] Apr, [facility] [address] [id number] [address] [place] [address], [place] [address] Apr, [facility] [address] [id number] [address] [place] [address], [place] [address] Mar, [facility] [address] [id number] [address] [place] [address], [place] [address] Mar, [facility] [address] [id number] [address] [place] [address], [place] [address] Mar, [facility] [address] [id number] [address] [place] [address], [place] [address] Mar, [facility] [address] [id number] [address] [place] [address], [place] [address] Mar, [facility] [address] [id number] [address] [place] [address], [place] [address] Mar, [facility] [address] [id number] [address] [place] [address], [place] [address] Mar, [facility] [address] [id number] [address] [place] [address], [place] [address] Mar, [facility] [address] [id number] [address] [place] [address], [place] [address] 30 Feb, 2013 [facility] [address] [id number] [address] [place] [address], [place] [address] 30 Feb, 2013 [facility] [address] [id number] [address] [place] [address], [place] [address] 24 Feb, 2013 [facility] [address] [id number] [address] [place] [address], [place] [address] 24 Feb, 2013 [facility] [address] [id number] [address] [place] [address], [place] [address] 22 Feb, 2013 [facility] [address] [id number] [facility] [place] [place] [address] 22 Feb, 2013 [facility] [address] [id number] [address] [place] [address], [place] [address] Feb, 2013 [facility] [address] [id number] [address] [place] [address], [place] [address] Feb, 2013 [facility] [address] [id number] [address] [place] [address], [place] [address] Feb, 2013 [facility] [address] [id number] [address] [place] [address], [place] [address] Feb, 2013 [facility] [address] [id number] [address] [place] [address], [place] [address] Feb, 2013 [facility] [address] [id number] [address] [place] [address], [place] [address] Feb, 2013 [facility] [address] [id number] [address] [place] [address], [place] [address] Feb, 2013 [facility] [address] [id number] [address] [place] [address], [place] [address] Feb, 2013 [facility] [address] [id number] [address] [place] [address], [place] [address] Jan, [facility] [address] [id number] [address] [place] [address], [place] [address] Jan, [facility] [address] [id number] [address] [place] [address], [place] [address] Dec, [facility] [address] [id number] [address] [place] [address], [place] [address] Dec, [facility] [address] [id number] [address] [place] [address], [place] [address] Dec, [facility] [address] [id number] [address] [place] [address], [place] [address] Dec, [facility] [address] [id number] [address] [place] [address], [place] [id number] Dec, [facility] [address] [id number] [address] [place] [address], [place] [address] 15 Dec, 2013 [facility] [address] [id number] [address] [place] [address], [place] [address] Dec, 2013 [facility] [address] [id number] [address] [place] [address], [place] [address] 15 Dec, 2013 [facility] [address] [id number] [address] [place] [address], [place] [address] Dec, 2013 [facility] [address] [id number] [address] [place] [address], [place] [address] Dec, 2013 [facility] [address] [id number] [address] [place] [address], [place] [address] Dec, 2013 [facility] [address] [id number] [address] [place] [address], [place] [address] Dec, 2013 [facility] [address] [id number] [address] [place] [address], [place] [address] Dec, 2013 [facility] [address] [id number] [address] [place] [address], [place] [address] Dec, 2013 [facility] [address] [id number] [address] [place] [address], [place] [address] Dec, 2013 [facility] [address] [id number] [address] [place] [address], [place] [address] Dec, 2013 [facility] [address] [id number] [address] [place] [address], [place] [address] Dec, 2013 [facility] [address] [id number] [address] [place] [address], [place] [address] Dec, [facility] [address] [id number] [address] [place] [address], [place] [address] Dec, [facility] [address] [id number] [address] [place] [address], [place] [address] Nov, [facility] [address] [id number] [address] [place] [address], [place] [address] Nov, [facility] [address] [id number] [address] [place] [address], [place] [address] Nov, [facility] [address] [id number] [address] [place] [address], [place] [address] Nov, [facility] [address] [id number] [address] [place] [address], [place] [address] Nov, [facility] [address] [id number] [address] [place] [address], [place] [address] Nov, [facility] [address] [id number] [address] [place] [address], [place] [address] Nov, [facility] [address] [id number] [address] [place] [address], [place] [address] Nov, [facility] [address] [id number] [address] [place] [address], [place] [address] Nov, [facility] [address] [id number] [address] [place] [address], [place] [address] October, [facility] [address] [id number] [address] [place] [address], [place] [address] October, [facility] [address] [id number] [address] [place] [address], [place] [address] October, [facility] [address] [id number] [address] [place] [address], [place] [address] October, [facility] [address] [id number] [address] [place] [address], [place] [address] October, [facility] [address] [id number] [address] [place] [address], [place] [address] October, [facility] [address] [id number] [address] [place] [address], [place] [address] October, [facility] [address] [id number] [address] [place] [address], [place] [address] October, [facility] [address] [id number] [facility] [place] [address] Sep, [facility] [address] [id number] [address] [place] [address], [place] [address] Sep, [facility] [address] [id number] [address] [place] [address], [place] [address] Sep, [facility] [address] [id number] [address] [place] [address], [place] [address] Sep, [facility] [address] [id number] [address] [place] [address], [place] [address] Sep, [facility] [address] [id number] [address] [place] [address], [place] [address] Sep, [facility] [address] [id number] [address] [place] [address], [place] [address] Sep, [facility] [address] [id number] [address] [place] [address], [place] [address] Aug, [facility] [address] [id number] [address] [place] [address], [place] [address] Aug, [facility] [address] [id number] [address] [place] [address], [place] [address] Aug, [facility] [address] [id number] [address] [place] [address], [place] [address] Aug, [facility] [address] [id number] [address] [place] [address], [place] [address] Aug, [facility] [address] [id number] [address] [place] [address], [place] [address] Aug, [facility] [address] [id number] [address] [place] [address], [place] [address] Jul, [facility] [address] [id number] [address] [place] [address], [place] [address] Jul, [facility] [address] [id number] [address] [place] [address], [place] [address] Jul, [facility] [address] [id number] [address] [place] [address], [place] [address] Jul, [facility] [address] [id number] [address] [place] [address], [place] [address] Jul, [facility] [address] [id number] [address] [place] [address], [place] [address] Jul, [facility] [address] [id number] [address] [place] [address], [place] [address] Jun, [facility] [address] [id number] [address] [place] [address], [place] [address] Jun, [facility] [address] [id number] [address] [place] [address], [place] [address] Jun, [facility] [address] [id number] [address] [place] [address], [place] [address] Jun, [facility] [address] [id number] [address] [place] [address], [place] [address] Jun, [facility] [address] [id number] [address] [place] [address], [place] [address] Jun, [facility] [address] [id number] [address] [place] [address], [place] [address] Jun, [facility] [address] [id number] [address] [place] [address], [place] [address] Jun, [facility] [address] [id number] [address] [place] [address], [place] [address] Jun, [facility] [address] [id number] [address] [place] [address], [place] [address] Jun, [facility] [address] [id number] [address] [place] [address], [place] [address] Jun, [facility] [address] [id number] [address] [place] [address], [place] [address] Jun, [facility] [address] [id number] [address] [place] [address], [place] [address] 14 Jun, 2013 [facility] [address] [id number] [address] [place] [address], [place] [address] 30 May, 2013 [facility] [address] [id number] [address] [place] [address], [place] [address] 30 May, 2013 [facility] [address] [id number] [address] [place] [address], [place] [address] 30 May, 2013 [facility] [address] [id number] [address] [place] [address], [place] [address] 30 May, 2013 [facility] [address] [id number] [address] [place] [address], [place] [address] May, [facility] [address] [id number] [address] [place] [address], [place] [address] May, [facility] [address] [id number] [address] [place] [address], [place] [address] May, [facility] [address] [id number] [address] [place] [address], [place] [address] May, [facility] [address] [id number] [address] [place] [address], [place] [address] May, [facility] [address] [id number] [address] [place] [address], [place] [address] May, [facility] [address] [id number] [address] [place] [address], [place] [address] May, [facility] [address] [id number] [address] [place] [address], [place] [address] May, [facility] [address] [id number] [address] [place] [address], [place] [address] May, [facility] [address] [id number] [address] [place] [address], [place] [address] May, [facility] [address] [id number] [address] [place] [address], [place] [address] May, [facility] [address] [id number] [address] [place] [address], [place] [address] 08 May, 2013 [facility] [address] [id number] [address] [place] [address], [place] [address] May, [facility] [address] [id number] [address] [place] [address], [place] [address] May, [facility] [address] [id number] [address] [place] [address], [place] [address] May, [facility] [address] [id number] [address] [place] [address], [place] [address] May, [facility] [address] [id number] [address] [place] [address], [place] [address] May, [facility] [address] [id number] [address] [place] [address], [place] [address] Apr, [facility] [address] [id number] [address] [place] [address], [place] [address] Apr, [facility] [address] [id number] [address] [place] [address], [place] [address] Apr, [facility] [address] [id number] [address] [place] [address], [place] [address] Apr, [facility] [address] [id number] [address] [place] [address], [place] [address] Mar, [facility] [address] [id number] [address] [place] [address], [place] [address] 23 Feb, 2013 [facility] [address] [id number] [address] [place] [address], [place] [address] 16 Sep2012 [facility] [address] [id number] [address] [place] [address], [place] [address] 13 Feb, 2013 [facility] [address] [id number] [address] [place] [address], [place] [address] 10 Feb, 2013 [facility] [address] [id number] [address] [place] [address] [place] [address] Feb, [facility] [address] [id number] [address] [place] [address], [place] [address] Feb, [facility] [address] [id number] [address] [place] [address], [place] [address] Jan, [facility] [address] [id number] [address] [place] [address], [place] [address] Jan, [facility] [address] [id number] [address] [place] [address], [place] [address] Jan, [facility] [address] [id number] [address] [place] [address], [place] [address] Dec, [facility] [address] [id number] [address] [place] [address], [place] [address] Dec, [facility] [address] [id number] [address] [place] [address], [place] [address] Dec, [facility] [address] [id number] [address] [place] [address], [place] [address] Dec, [facility] [address] [id number] [address] [place] [address], [place] [address] Dec, [facility] [address] [id number] [address] [place] [address], [place] [address] Nov, [facility] [address] [id number] [address] [place] [address], [place] [address] Nov, [facility] [address] [id number] [address] [place] [address], [place] [address] Nov, [facility] [address] [id number] [address] [place] [address], [place] [address] Nov, [facility] [address] [id number] [address] [place] [address], [place] [address] Nov, [facility] [address] [id number] [address] [place] [address], [place] [address] Nov, [facility] [address] [id number] [address] [place] [address], [place] [address] 07 Nov, 2012 [facility] [address] [id number] [address] [place] [address], [place] [address] Nov, [facility] [address] [id number] [address] [place] [address], [place] [address] Nov, [facility] [address] [id number] [address] [place] [address], [place] [address] Nov, [facility] [address] [id number] [address] [place] [address], [place] [address] October, [facility] [address] [id number] [address] [place] [address], [place] [address] October, [facility] [address] [id number] [address] [place] [address], [place] [address] Sep, [facility] [address] [id number] [address] [place] [address], [place] [address] Sep, [facility] [address] [id number] [address] [place] [address], [place] [address] Sep, [facility] [address] [id number] [address] [place] [address], [place] [address] Sep, [facility] [address] [id number] [address] [place] [address], [place] [address] Sep, [facility] [address] [id number] [address] [place] [address], [place] [address] Aug, [facility] [address] [id number] [address] [place] [address], [place] [address] Aug, [facility] [address] [id number] [address] [place] [address], [place] [address] Jul, [facility] [address] [id number] [address] [place] [address], [place] [address] Jul, [facility] [address] [id number] [address] [address] Jun, [facility] [address] [id number] [address] [place] [address], [place] [address] 14 Jun, 2012 [facility] [address] [id number] [address] [place] [address], [place] [address] 05 May, 2012 [facility] [address] [id number] [address] [place] [address], [place] [address] May, [facility] [address] [id number] [address] [place] [address], [place] [address] May, [facility] [address] [id number] [address] [place] [address], [place] [address] May, [facility] [address] [id number] [address] [place] [address], [place] [address] Apr, [facility] [address] [id number] [address] [place] [address], [place] [address] Apr, [facility] [address] [id number] [address] [place] [address], [place] [address] Apr, [facility] [address] [id number] [address] [place] [address], [place] [address] Apr, [facility] [address] [id number] [address] [place] [address], [place] [address] 20 Apr, 2012 [facility] [address] [id number] [address] [place] [address], [place] [address] 14 Apr, 2012 [facility] [address] [id number] [address] [place] [id number] 14 Apr, 2012 [facility] [address] [id number] [address] [place] [address], [place] [address] Apr, [facility] [address] [id number] [address] [place] [address], [place] [address] 12 Apr, 2012 [facility] [address] [id number] [address] [place] [address], [place] [address] 15 Mar, 2012 [facility] [address] [id number] [address] [place] [address], [place] [address] Mar, [facility] [address] [id number] [address] [place] [address], [place] [address] Feb, [facility] [address] [id number] [address] [place] [address], [place] [address] Jan, [facility] [address] [id number] [address] [place] [address], [place] [address] Jan, [facility] [address] [id number] [address] [place] [address], [place] [address] Dec, [facility] [address] [id number] [address] [place] [address], [place] [address] Nov, [facility] [address] [id number] [address] [place] [address], [place] [address] Nov, [facility] [address] [id number] [address] [place] [address], [place] [address] October, [facility] [address] [id number] [address] [place] [address], [place] [address] October, [facility] [address] [id number] [address] [place] [address], [place] [address] Sep, [facility] [address] [id number] [address] [place] [address], [place] [address] Sep, [facility] [address] [id number] [address] [place] [address], [place] [address] May, [facility] [address] [id number] [address] [place] [address], [place] [address] Apr, [facility] [address] [id number] [address] [place] [address], [place] [address] Apr, [facility] [address] [id number] [address] [place] [address], [place] [address] Apr, [facility] [address] [id number] [address] [place] [address], [place] [address] Apr, [facility] [address] [id number] [address] [place] [id number] Apr, [facility] [address] [id number] [address] [place] [id number] Apr, [facility] [address] [id number] [address] [place] [id number] Apr, [facility] [address] [id number] [address] [place] [id number] Apr, [facility] [address] [id number] [address] [place] [id number] Mar, [facility] [address] [id number] [address] [place] [id number] Mar, [facility] [address] [id number] [address] [place] [phone] Mar, [facility] [address] [id number] [address] [place] [phone] Mar, [facility] [address] [id number] [address] [place] [phone] Mar, [facility] [address] [id number] [address] [place] [id number] Mar, IMMUNIZATIONS No Known Immunizations SOCIAL HISTORY Never Assessed REASON FOR VISIT PLAN OF CARE VITAL SIGNS Height 62 in 2014-01-07 Weight 229.1 lbs 2014-01-07 Temperature 98.1 degrees Fahrenheit 2014-01-07 Heart Rate 74 bpm 2014-01-07 Respiratory Rate 18 2014-01-07 Blood pressure systolic 118 mmHg 2014-01-07 Blood pressure diastolic 80 mmHg 2014-01-07 MEDICATIONS Unknown Medications RESULTS No Results PROCEDURES No Known procedures INSTRUCTIONS MEDICATIONS ADMINISTERED No Known Medications MEDICAL (GENERAL) HISTORY Type Description Date Medical History HTN Medical History Depression Medical History Arthritis Medical History COPD Surgical History Breast lump removed Surgical History Removal of cyst from ovary Surgical History cholecystectomy Surgical History Stomach surgeryx3 Surgical History tubal ligation Hospitalization History Mental floor at [facility]
--- OUTSIDE RECORDS SUMMARY | 2019-12-24 19:40 | XMS REPORT ---
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 Name Role Phone SURESH ANDRADE Unavailable PROBLEMS Type Condition ICD9-CM Code QSE00-KL Code Onset Dates Condition S tatus SNOMED Code Problem Nondependent 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 Ac tive 478110522 Problem Other chronic pain G89.29 Active 1 19059469 Problem Unspecified epilepsy without mention of intractable ep ilepsy G40.909 Active 47325700 Problem Hyperlipidemia, unspecified E78.5 Ac tive 42703194 Problem Hypertension I10 Active 1488636 3 Problem Esophageal reflux K21.9 Active 23 0720665 Problem Rheumatoid arthritis M06.9 Active 82904241 Problem Cough R05 Active 40381781 Problem Acquired hypothyroidism E03.9 Active 118658691 Problem Unspecified open-angle glaucoma, stage unspecified H40.10X0 Feb, Active 39382399 Problem Presbyopia H52.4 Active 39611282 Problem Insomnia G47.00 Active 256158751 Problem Arthralgia M25.50 Active 59237077 Problem Thyroid nodule E04.1 Active 98530 5005 Problem Anxiety disorder, unspecified F41.9 Active 415286758 Problem Chronic tension-type headache, intractable G44.221 Active 931910941 Problem Neuropathy G62.9 Active 315885130 Problem Goiter E04.9 Active 5630898 Problem Multinodular goiter E04.2 Active 443620611 Problem Carpal tunnel syndrome of left wrist G56.02 Active [id number] Problem Chronic obstructive pulmonary disease, unspecified COPD ty pe J44.9 Active 68103489 Problem BMI 40.0-44.9, adult Z68.41 Active 833966126 Problem Seasonal allergic rhinitis due to pollen J30.1 Active 49407602 Problem Depression F32.9 Active 37253071 Problem Essential hypertension I10 Active 14522207 Problem Depressive disorder F32.9 Active 55269234 Problem Right-sided low back pain without sciatica M54.5 Active 830204287 Problem Reactive airway disease with out complication, unspecified asthma severity, unspecified whether persistent J45.909 Active 085971133854 Problem Urge incontinence of urine N39.41 Act chen 62560291 Problem Abnormal laboratory test R89.9 Activ e 526288648 Problem COPD with exacerbation J44.1 Active 516892738 ALLERGIES No Information ENCOUNTERS Encounter Location Date Diagnosis [place] [address] [address] Sep, [place] [address] [address] Aug, Pelvic pain R10.2 ; Other sp ecified bacterial agents as the cause of diseases classified elsewhere B96.89 and Acute vaginitis N76.0 [place] [address] [address] Apr, Bronchitis J40 [place] [address] [address] Apr, Acute gastritis without hemo rrhage, unspecified gastritis type K29.00 [place] [address] [place] [id number] [address] [place] [address] Mar, [facility] [address] [place] [id number] [address] [place] [address] Feb, [place] [address] [address] Feb, Mass of right side of neck R 22.1 and Multinodular goiter E04.2 [facility] [address] [place] [id number] [address] [place] [address] Jan, Bronchitis J40 [place] [address] [place] [id number] [address] [place] [address] October, Acquired hypothyroidism E03. 9 [facility] [address] [place] [id number] [place] [address] October, Acute gastritis without hemo rrhage, unspecified gastritis type K29.00 ; Epigastric pain R10.13 ; Essential hypertension I10 ; Screening for colon cancer Z12.11 and BMI 40.0-44.9, adult Z68.41 [place] [address] [address] October, [facility] [place] [address] [address] October, Chest pain R07.9 and Morbid obesity E66.01 [facility] [place] [address] [address] Sep, Generalized abdominal pain R 10.84 ; Morbid obesity E66.01 ; Non-intractable vomiting with nausea, unspecified vomiting type R11.2 and Seasonal allergic rhinitis due to pollen J30.1 [facility] [place] [address] [address] Jul, COPD with exacerbation J44.1 ; Viral upper respiratory tract infection J06.9 and Morbid obesity E66.01 [facility] [place] [address] [address] Jun, Viral upper respiratory trac t infection J06.9 [place] [address] [address] Apr, Abnormal laboratory test R89 .9 [place] [address] [address] Apr, Abnormal laboratory test R89 .9 [place] [address] [address] Apr, Abnormal laboratory test R89 .9 [place] [address] [address] Apr, [place] [address] [address] Apr, [place] [address] [address] Apr, Nonintractable episodic head ache, unspecified headache type R51 ; Urge incontinence of urine N39.41 ; BMI 40.0-44.9, adult Z68.41 ; Myalgia M79.10 and Acute cystitis without hematuria N30.00 [place] [address] [address] Mar, Nasal congestion R09.81 ; Lo w back pain M54.5 ; Reactive airway disease without complication, unspecified asthma severity, unspecified whether persistent J45.909 ; Other chronic pain G89.29 ; Acute cystitis with hematuria N30.01 and BMI 40.0-44.9, adult Z68.41 [place] [address] [address] Mar, Acute cystitis with hematuri a N30.01 [facility] [address] [address] Mar, BMI 40.0-44.9, adult Z68.41 ; Acute cystitis with hematuria N30.01 ; Acute bilateral low back pain without sciatica M54.5 and Nausea R11.0 [place] [address] [address] Mar, Hypertension I10 ; Acquired hypothyroidism E03.9 ; Esophageal reflux K21.9 ; Chronic obstructive pulmonary disease, unspecified COPD type J44.9 and BMI 40.0-44.9, adult Z68.41 [place] [address] [address] Mar, Hypertension I10 [address] [address] Nov, Hyperlipidemia, unspecified E78.[address] [address] October, Chest pain, unspecified type R07.9 and Acquired hypothyroidism E03.9 [place] [address] [facility] [id number] [address] [place] [address] October, Chest pain, unspecified type R07.9 ; Family history of coronary artery disease Z82.49 ; Carpal tunnel syndrome of left wrist G56.02 ; Hypertension I10 ; Esophageal reflux K21.9 ; Arthralgia M25.50 ; Acquired hypothyroidism E03.9 ; Cough R05 ; Nausea R11.0 ; Weight gain R63.5 and BMI 45.0-49.9, adult Z68.42 [place] [address] [facility] [id number] [address] [place] [address] Jun, Acquired hypothyroidism E03. 9 and Cough R05 [place] [address] [place] [id number] [address] [place] [address] May, [place] [address] [address] Feb, Tarsal tunnel syndrome of timi th lower extremities G57.53 and Neuropathy G62.9 [place] [address] [place] [id number] [address] [place] [address] Dec, Pleuritis R09.1 [place] [address] [place] [id number] [place] [address] Nov, [place] [address] [place] [id number] [place] [address] October, Arthralgia, unspecified join t M25.50 and Allergy, initial encounter T78.40XA [place] [address] [place] [id number] [address] [place] [address] October, [place] [address] [place] [id number] [place] [address] October, Acute recurrent maxillary si nusitis J01.01 and Arthralgia M25.50 [place] [address] [place] [id number] [place] [address] Sep, Pharyngitis due to other org anism J02.8 [place] [address] [address] 30 Aug, 2016 Acute nasopharyngitis J00 [place] [address] [address] 10 Aug, 2016 Multinodular goiter E04.2 [place] [address] [address] 03 Aug, 2016 Thyroid nodule E04.1 [place] [address] [address] 17 Jul, 2016 Tarsal tunnel syndrome of timi th lower extremities G57.[address] [address] Jun, Pneumonia due to infectious organism, unspecified laterality, unspecified part of lung J18.9 [place] [address] [address] Jun, Bronchospasm with bronchitis , acute J20.[address] [address] May, Acute non-recurrent frontal sinusitis J01.[address] [address] May, Flat foot [pes planus] (acqu ired), left foot M21.42 ; Flat foot [pes planus] (acquired), right foot M21.41 and Neuropathy G62.[address] [address] Apr, Chronic tension-type headach e, intractable G44.221 ; Right lower quadrant abdominal pain R10.31 ; Cervicalgia M54.2 ; Acute gastritis without hemorrhage, unspecified gastritis type K29.00 and Hypertension I10 [address] [address] Mar, Depression F32.9 and Anxiety disorder, unspecified F41.9 [facility] [address] [place] [id number] [address] [place] [address] Feb, Depressive disorder F32.9 an d Anxiety disorder, unspecified F41.9 [facility] [address] [place] [id number] [address] [place] [address] Jan, Dysuria R30.0 ; Lower abdomi nal pain R10.30 ; Acute bilateral low back pain without sciatica M54.5 ; Nausea and vomiting, unspecified intactability, vomiting of unspecified type R11.2 ; Pain in right foot M79.671 and Pain of left foot M79.672 [place] [address] [place] [id number] [place] [address] Dec, Urinary tract infection, sit e not specified N39.0 [facility] [address] [place] [id number] [place] [address] Dec, [facility] [address] [place] [id number] [place] [address] Nov, [place] [address] [place] [id number] [place] [address] Nov, Dysuria R30.0 [place] [address] [place] [id number] [place] [address] Nov, Dysuria R30.0 and Acute cyst itis with hematuria N30.01 [facility] [address] [place] [id number] [place] [address] October, Nausea R11.0 [facility] [address] [place] [id number] [place] [address] October, Thyroid nodule E04.1 ; Carpa l tunnel syndrome, left upper limb G56.02 ; Carpal tunnel syndrome, right upper limb G56.01 and Constipation, unspecified constipation type K59.00 [facility] [address] [place] [id number] [place] [address] October, [place] [address] [place] [id number] [place] [address] October, Thyroid nodule E04.1 [facility] [address] [address] October, Cold thyroid nodule E04.1 [place] [address] [address] October, [place] [address] [address] Sep, Thyroid nodule E04.1 [place] [address] [address] Sep, Thyroid nodule E04.1 [place] [address] [address] Sep, Thyroid nodule E04.1 ; Hyper tension I10 ; Esophageal reflux K21.9 and Hyperlipidemia, unspecified E78.5 [place] [address] [address] Aug, Other chronic pain G89.29 ; Sinusitis J32.9 and Hypertension I10 [place] [address] [address] 29 Jul, 2015 [place] [address] [address] 15 Jul, 2015 [place] [address] [address] 10 Jul, 2015 Insomnia G47.00 and Arthralg ia M25.50 [place] [address] [address] 10 Jul, 2015 Depressive disorder F32.9 an d Anxiety disorder, unspecified F41.9 [place] [address] [address] May, Right-sided low back pain wi thout sciatica M54.5 and Depression F32.9 [facility] [address] [facility] [id number] [address] [place] [address] Apr, Hematuria R31.9 [facility] [address] [facility] [id number] [address] [place] [address] Mar, Other chronic pain G89.29 [facility] [address] [place] [id number] [address] [place] [address] Mar, Other chronic pain G89.29 [facility] [address] [facility] [id number] [address] [place] [address] Feb, [facility] [address] [place] [id number] [address] [place] [address] Feb, Other chronic pain 338.29 ; Dysuria 788.1 ; UTI (urinary tract infection) 599.0 ; Insomnia 780.52 ; Hot flashes 627.2 and Hypertension 401.9 [facility] [address] [place] [id number] [place] [address] Feb, Dysuria 788.1 [facility] [address] [place] [id number] [place] [address] Feb, [facility] [address] [place] [id number] [address] [place] [address] Jan, [facility] [address] [place] [id number] [place] [address] Jan, [facility] [address] [place] [id number] [address] [place] [address] Jan, Fibromyalgia 729.1 ; Hyperte nsion 401.9 ; Dysthymia 300.4 and Hot flashes 627.2 [facility] [address] [facility] [id number] [address] [place] [address] Dec, [facility] [address] [place] [id number] [address] [place] [address] Dec, [facility] [address] [id number] [address] [place] [address], [place] [id number] Dec, [facility] [address] [id number] [address] [place] [address] Nov, Other chronic pain 338.29 [facility] [address] [id number] [address] [place] [address], [place] [id number] October, [facility] [address] [id number] [address] [place] [address], [place] [id number] October, [facility] [address] [id number] [address] [place] [address], [place] [id number] Sep, [facility] [address] [id number] [address] [place] [address], [place] [id number] Sep, [facility] [address] [id number] [address] [place] [address], [place] [id number] Aug, [facility] [address] [id number] [address] [place] [address] Aug, [facility] [address] [id number] [address] [place] [address], [place] [id number] Aug, [facility] [address] [id number] [address] [place] [address] Aug, [facility] [address] [id number] [address] [place] [address] Aug, [facility] [address] [id number] [address] [place] [address] Aug, [facility] [address] [id number] [address] [place] [address], [place] [id number] Aug, [facility] [address] [id number] [address] [place] [address] Aug, [facility] [address] [id number] [address] [place] [address] 11 Aug, 2014 [facility] [address] [id number] [address] [place] [address] Aug, [facility] [address] [id number] [address] [place] [address], [place] [id number] Aug, [facility] [address] [id number] [address] [place] [address], [place] [id number] Aug, [facility] [address] [id number] [address] [place] [address], [place] [id number] Aug, [facility] [address] [id number] [address] [place] [address], [place] [id number] Aug, [facility] [address] [id number] [address] [place] [address], [place] [id number] Jul, [facility] [address] [id number] [address] [place] [address], [place] [id number] Jul, [facility] [address] [id number] [address] [place] [address], [place] [id number] Jul, [facility] [address] [id number] [address] [place] [address], [place] [id number] Jul, [facility] [address] [id number] [address] [place] [address], [place] [id number] Jul, [facility] [address] [id number] [address] [place] [address], [place] [id number] Jul, [facility] [address] [id number] [address] [place] [address], [place] [id number] Jun, [facility] [address] [id number] [address] [place] [address] Jun, [facility] [address] [id number] [address] [place] [address] Jun, [facility] [address] [id number] [address] [place] [address] Jun, [facility] [address] [id number] [address] [place] [address] May, [facility] [address] [id number] [address] [place] [address], [place] [id number] May, [facility] [address] [id number] [address] [place] [address], [place] [id number] May, [facility] [address] [id number] [address] [place] [address], [place] [id number] May, [facility] [address] [id number] [address] [place] [address], [place] [id number] May, [facility] [address] [id number] [address] [place] [address], [place] [id number] May, [facility] [address] [id number] [address] [place] [address], [place] [id number] May, [facility] [address] [id number] [address] [place] [address], [place] [id number] May, [facility] [address] [id number] [address] [place] [address], [place] [id number] May, [facility] [address] [id number] [address] [place] [address], [place] [id number] May, [facility] [address] [id number] [address] [place] [address], [place] [id number] Apr, [facility] [address] [id number] [address] [place] [address], [place] [id number] Apr, [facility] [address] [id number] [address] [place] [address], [place] [id number] Apr, [facility] [address] [id number] [address] [place] [address], [place] [id number] Apr, [facility] [address] [id number] [address] [place] [address], [place] [id number] Apr, [facility] [address] [id number] [address] [place] [address], [place] [id number] Apr, [facility] [address] [id number] [address] [place] [address], [place] [id number] 08 Apr, 2014 [facility] [address] [id number] [address] [place] [address], [place] [id number] Apr, [facility] [address] [id number] [address] [place] [address], [place] [id number] Apr, [facility] [address] [id number] [address] [place] [address], [place] [id number] Mar, [facility] [address] [id number] [address] [place] [address], [place] [id number] Mar, [facility] [address] [id number] [address] [place] [address], [place] [id number] Mar, [facility] [address] [id number] [address] [place] [address], [place] [id number] Mar, [facility] [address] [id number] [address] [place] [address], [place] [id number] Mar, [facility] [address] [id number] [address] [place] [address], [place] [id number] Mar, [facility] [address] [id number] [address] [place] [address], [place] [id number] Mar, [facility] [address] [id number] [address] [place] [address], [place] [id number] Mar, [facility] [address] [id number] [address] [place] [address], [place] [id number] 30 Feb, 2013 [facility] [address] [id number] [address] [place] [address], [place] [id number] 30 Feb, 2013 [facility] [address] [id number] [address] [place] [address], [place] [id number] 24 Feb, 2013 [facility] [address] [id number] [address] [place] [address], [place] [id number] 24 Feb, 2013 [facility] [address] [id number] [address] [place] [address], [place] [id number] 22 Feb, 2013 [facility] [address] [id number] [facility] [place] [id number] 22 Feb, 2013 [facility] [address] [id number] [address] [place] [address], [place] [id number] Feb, 2013 [facility] [address] [id number] [address] [place] [address], [place] [id number] Feb, 2013 [facility] [address] [id number] [address] [place] [address], [place] [id number] Feb, 2013 [facility] [address] [id number] [address] [place] [address], [place] [id number] Feb, 2013 [facility] [address] [id number] [address] [place] [address], [place] [id number] Feb, 2013 [facility] [address] [id number] [address] [place] [address], [place] [id number] Feb, 2013 [facility] [address] [id number] [address] [place] [address], [place] [id number] Feb, 2013 [facility] [address] [id number] [address] [place] [address], [place] [id number] Feb, 2013 [facility] [address] [id number] [address] [place] [address], [place] [id number] Jan, [facility] [address] [id number] [address] [place] [address], [place] [id number] Jan, [facility] [address] [id number] [address] [place] [address], [place] [id number] Dec, [facility] [address] [id number] [address] [place] [address], [place] [id number] Dec, [facility] [address] [id number] [address] [place] [address], [place] [id number] Dec, [facility] [address] [id number] [address] [place] [address], [place] [id number] Dec, [facility] [address] [id number] [address] [place] [address], [place] [id number] Dec, [facility] [address] [id number] [address] [place] [address], [place] [id number] 15 Dec, 2013 [facility] [address] [id number] [address] [place] [address], [place] [id number] Dec, 2013 [facility] [address] [id number] [address] [place] [address], [place] [id number] 15 Dec, 2013 [facility] [address] [id number] [address] [place] [address], [place] [id number] Dec, 2013 [facility] [address] [id number] [address] [place] [address], [place] [id number] Dec, 2013 [facility] [address] [id number] [address] [place] [address], [place] [id number] Dec, 2013 [facility] [address] [id number] [address] [place] [address], [place] [id number] Dec, 2013 [facility] [address] [id number] [address] [place] [address], [place] [id number] Dec, 2013 [facility] [address] [id number] [address] [place] [address], [place] [id number] Dec, 2013 [facility] [address] [id number] [address] [place] [address], [place] [id number] Dec, 2013 [facility] [address] [id number] [address] [place] [address], [place] [id number] Dec, 2013 [facility] [address] [id number] [address] [place] [address], [place] [id number] Dec, 2013 [facility] [address] [id number] [place] [address], [place] [id number] Dec, [facility] [address] [id number] [address] [place] [address], [place] [id number] Dec, [facility] [address] [id number] [address] [place] [address], [place] [id number] Nov, [facility] [address] [id number] [address] [place] [address], [place] [id number] Nov, [facility] [address] [id number] [address] [place] [address], [place] [id number] Nov, [facility] [address] [id number] [address] [place] [address], [place] [address] Nov, [facility] [address] [id number] [address] [place] [address], [place] [address] Nov, [facility] [address] [id number] [address] [place] [address], [place] [id number] Nov, [facility] [address] [id number] [address] [place] [address], [place] [id number] Nov, [facility] [address] [id number] [address] [place] [address], [place] [id number] Nov, [facility] [address] [id number] [address] [place] [address], [place] [id number] Nov, [facility] [address] [id number] [address] [place] [address], [place] [address] October, [facility] [address] [id number] [address] [place] [address], [place] [id number] October, [facility] [address] [id number] [address] [place] [address], [place] [id number] October, [facility] [address] [id number] [address] [place] [address], [place] [id number] October, [facility] [address] [id number] [address] [place] [address], [place] [id number] October, [facility] [address] [id number] [address] [place] [address], [place] [id number] October, [facility] [address] [id number] [address] [place] [address], [place] [id number] October, [facility] [address] [id number] [address] [place] [address], [place] [id number] October, [facility] [address] [id number] [facility] [id number] Sep, [facility] [address] [id number] [address] [place] [address], [place] [address] Sep, [facility] [address] [id number] [address] [place] [address], [place] [id number] Sep, [facility] [address] [id number] [address] [place] [address], [place] [id number] Sep, [facility] [address] [id number] [address] [place] [address], [place] [id number] Sep, [facility] [address] [id number] [address] [place] [address], [place] [id number] Sep, [facility] [address] [id number] [address] [place] [address], [place] [id number] Sep, [facility] [address] [id number] [address] [place] [address], [place] [id number] Aug, [facility] [address] [id number] [address] [place] [address], [place] [id number] Aug, [facility] [address] [id number] [address] [place] [address], [place] [id number] Aug, [facility] [address] [id number] [address] [place] [address], [place] [id number] Aug, [facility] [address] [id number] [address] [place] [address], [place] [id number] Aug, [facility] [address] [id number] [address] [place] [address], [place] [id number] Aug, [facility] [address] [id number] [address] [place] [address], [place] [id number] Jul, [facility] [address] [id number] [address] [place] [address], [place] [id number] Jul, [facility] [address] [id number] [address] [place] [address], [place] [id number] Jul, [facility] [address] [id number] [address] [place] [address], [place] [id number] Jul, [facility] [address] [id number] [address] [place] [address], [place] [id number] Jul, [facility] [address] [id number] [address] [place] [address], [place] [id number] Jul, [facility] [address] [id number] [address] [place] [address], [place] [id number] Jun, [facility] [address] [id number] [address] [place] [address], [place] [id number] Jun, [facility] [address] [id number] [address] [place] [address], [place] [id number] Jun, [facility] [address] [id number] [address] [place] [address], [place] [id number] Jun, [facility] [address] [id number] [address] [place] [address], [place] [id number] Jun, [facility] [address] [id number] [address] [place] [address], [place] [id number] Jun, [facility] [address] [id number] [address] [place] [address], [place] [id number] Jun, [facility] [address] [id number] [address] [place] [address], [place] [id number] Jun, [facility] [address] [id number] [address] [place] [address], [place] [id number] Jun, [facility] [address] [id number] [address] [place] [address], [place] [id number] Jun, [facility] [address] [id number] [address] [place] [address], [place] [id number] Jun, [facility] [address] [id number] [address] [place] [address], [place] [id number] Jun, [facility] [address] [id number] [address] [place] [address], [place] [id number] 14 Jun, 2013 [facility] [address] [id number] [address] [place] [address], [place] [id number] 30 May, 2013 [facility] [address] [id number] [address] [place] [address], [place] [id number] 30 May, 2013 [facility] [address] [id number] [address] [place] [address], [place] [id number] 30 May, 2013 [facility] [address] [id number] [address] [place] [address], [place] [id number] 30 May, 2013 [facility] [address] [id number] [address] [place] [address], [place] [id number] May, [facility] [address] [id number] [address] [place] [address], [place] [id number] May, [facility] [address] [id number] [address] [place] [address], [place] [id number] May, [facility] [address] [id number] [address] [place] [address], [place] [address] May, [facility] [address] [id number] [address] [place] [address], [place] [id number] May, [facility] [address] [id number] [address] [place] [address], [place] [id number] May, [facility] [address] [id number] [address] [place] [address], [place] [id number] May, [facility] [address] [id number] [address] [place] [address], [place] [id number] May, [facility] [address] [id number] [address] [place] [address], [place] [id number] May, [facility] [address] [id number] [address] [place] [address], [place] [id number] May, [facility] [address] [id number] [address] [place] [address], [place] [id number] May, [facility] [address] [id number] [address] [place] [address], [place] [id number] 08 May, 2013 [facility] [address] [id number] [address] [place] [address], [place] [id number] May, [facility] [address] [id number] [address] [place] [address], [place] [id number] May, [facility] [address] [id number] [address] [place] [address], [place] [id number] May, [facility] [address] [id number] [address] [place] [address], [place] [id number] May, [facility] [address] [id number] [address] [place] [address], [place] [id number] May, [facility] [address] [id number] [address] [place] [address], [place] [id number] Apr, [facility] [address] [id number] [address] [place] [address], [place] [id number] Apr, [facility] [address] [id number] [address] [place] [address], [place] [id number] Apr, [facility] [address] [id number] [address] [place] [address], [place] [id number] Apr, [facility] [address] [id number] [address] [place] [address], [place] [id number] Mar, [facility] [address] [id number] [address] [place] [address], [place] [id number] 23 Feb, 2013 [facility] [address] [id number] [address] [place] [address], [place] [id number] 16 Sep2012 [facility] [address] [id number] [address] [place] [address], [place] [id number] 13 Feb, 2013 [facility] [address] [id number] [address] [place] [address], [place] [id number] 10 Feb, 2013 [facility] [address] [id number] [address] [place] [address] [place] [id number] Feb, [facility] [address] [id number] [address] [place] [address], [place] [id number] Feb, [facility] [address] [id number] [address] [place] [address], [place] [id number] Jan, [facility] [address] [id number] [address] [place] [address], [place] [id number] Jan, [facility] [address] [id number] [address] [place] [address], [place] [id number] Jan, [facility] [address] [id number] [address] [place] [address], [place] [id number] Dec, [facility] [address] [id number] [address] [place] [address], [place] [id number] Dec, [facility] [address] [id number] [address] [place] [address], [place] [address] Dec, [facility] [address] [id number] [address] [place] [address], [place] [id number] Dec, [facility] [address] [id number] [address] [place] [address], [place] [id number] Dec, [facility] [address] [id number] [address] [place] [address], [place] [id number] Nov, [facility] [address] [id number] [address] [place] [address], [place] [id number] Nov, [facility] [address] [id number] [address] [place] [address], [place] [id number] Nov, [facility] [address] [id number] [address] [place] [address], [place] [id number] Nov, [facility] [address] [id number] [address] [place] [address], [place] [id number] Nov, [facility] [address] [id number] [address] [place] [address], [place] [id number] Nov, [facility] [address] [id number] [address] [place] [address], [place] [id number] 07 Nov, 2012 [facility] [address] [id number] [address] [place] [address], [place] [id number] Nov, [facility] [address] [id number] [address] [place] [address], [place] [id number] Nov, [facility] [address] [id number] [address] [place] [address], [place] [id number] Nov, [facility] [address] [id number] [address] [place] [address], [place] [id number] October, [facility] [address] [id number] [address] [place] [address], [place] [id number] October, [facility] [address] [id number] [address] [place] [address], [place] [id number] Sep, [facility] [address] [id number] [address] [place] [address], [place] [id number] Sep, [facility] [address] [id number] [address] [place] [address], [place] [id number] Sep, [facility] [address] [id number] [address] [place] [address], [place] [id number] Sep, [facility] [address] [id number] [address] [place] [address], [place] [id number] Sep, [facility] [address] [id number] [address] [place] [address], [place] [id number] Aug, [facility] [address] [id number] [address] [place] [address], [place] [id number] Aug, [facility] [address] [id number] [address] [place] [address], [place] [id number] Jul, [facility] [address] [id number] [address] [place] [address], [place] [id number] Jul, [facility] [address] [id number] [address] [address] Jun, [facility] [address] [id number] [address] [place] [address], [place] [id number] 14 Jun, 2012 [facility] [address] [id number] [address] [place] [address], [place] [id number] 05 May, 2012 [facility] [address] [id number] [address] [place] [address], [place] [id number] May, [facility] [address] [id number] [address] [place] [address], [place] [id number] May, [facility] [address] [id number] [address] [place] [address], [place] [id number] May, [facility] [address] [id number] [address] [place] [address], [place] [id number] Apr, [facility] [address] [id number] [address] [place] [address], [place] [id number] Apr, [facility] [address] [id number] [address] [place] [address], [place] [id number] Apr, [facility] [address] [id number] [address] [place] [address], [place] [id number] Apr, [facility] [address] [id number] [address] [place] [address], [place] [id number] 20 Apr, 2012 [facility] [address] [id number] [address] [place] [address], [place] [id number] 14 Apr, 2012 [facility] [address] [id number] [address] [place] [id number] 14 Apr, 2012 [facility] [address] [id number] [address] [place] [address], [place] [id number] Apr, [facility] [address] [id number] [address] [place] [address], [place] [id number] 12 Apr, 2012 [facility] [address] [id number] [address] [place] [address], [place] [id number] 15 Mar, 2012 [facility] [address] [id number] [address] [place] [address], [place] [id number] Mar, [facility] [address] [id number] [address] [place] [address], [place] [id number] Feb, [facility] [address] [id number] [address] [place] [address], [place] [id number] Jan, [facility] [address] [id number] [address] [place] [address], [place] [id number] Jan, [facility] [address] [id number] [address] [place] [address], [place] [id number] Dec, [facility] [address] [id number] [address] [place] [address], [place] [id number] Nov, [facility] [address] [id number] [address] [place] [address], [place] [id number] Nov, [facility] [address] [id number] [address] [place] [address], [place] [id number] October, [facility] [address] [id number] [address] [place] [address], [place] [id number] October, [facility] [address] [id number] [address] [place] [address], [place] [id number] Sep, [facility] [address] [id number] [address] [place] [address], [place] [id number] Sep, [facility] [address] [id number] [address] [place] [address], [place] [id number] May, [facility] [address] [id number] [address] [place] [address], [place] [id number] Apr, [facility] [address] [id number] [address] [place] [address], [place] [id number] Apr, [facility] [address] [id number] [address] [place] [address], [place] [id number] Apr, [facility] [address] [id number] [address] [place] [address], [place] [id number] Apr, [facility] [address] [id number] [address] [place] [id number] Apr, [facility] [address] [id number] [address] [place] [id number] Apr, [facility] [address] [id number] [address] [place] [id number] Apr, [facility] [address] [id number] [address] [place] [id number] Apr, [facility] [address] [id number] [address] [place] [id number] Mar, [facility] [address] [id number] [address] [place] [id number] Mar, [facility] [address] [id number] [address] [place] [id number] Mar, [facility] [address] [id number] [address] [place] [id number] Mar, [facility] [address] [id number] [address] [place] [address] Mar, [facility] [address] [id number] [address] [place] [id number] Mar, IMMUNIZATIONS No Known Immunizations SOCIAL HISTORY [...] tubal ligation Hospitalization History Mental floor at [facility]
--- OUTSIDE RECORDS SUMMARY | 2019-12-24 19:40 | XMS REPORT ---
Author Author Trey ANDRADE Organization [facility] Address [address] [place] [address] Care Team Providers Care [employer] Name Role Phone SURESH ANDRADE Unavailable PROBLEMS Type Condition ICD9-CM Code SVL03-[place] Code Onset Dates Condition S tatus SNOMED Code Problem Nondependent 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 Ac tive 926238839 Problem Other chronic pain G89.29 Active 1 90338108 Problem Unspecified epilepsy without mention of intractable ep ilepsy G40.909 Active 24768520 Problem Hyperlipidemia, unspecified E78.5 Ac tive 78320922 Problem Hypertension I10 Active 5836987 3 Problem Esophageal reflux K21.9 Active 23 8638952 Problem Rheumatoid arthritis M06.9 Active 17805025 Problem Cough R05 Active 37142253 Problem Acquired hypothyroidism E03.9 Active 594704958 Problem Unspecified open-angle glaucoma, stage unspecified H40.10X0 Feb, Active 87458606 Problem Presbyopia H52.4 Active 97525059 Problem Insomnia G47.00 Active 478670507 Problem Arthralgia M25.50 Active 07311170 Problem Thyroid nodule E04.1 Active 25276 5005 Problem Anxiety disorder, unspecified F41.9 Active 968617923 Problem Chronic tension-type headache, intractable G44.221 Active 352987031 Problem Neuropathy G62.9 Active 211026759 Problem Goiter E04.9 Active 6234425 Problem Multinodular goiter E04.2 Active 369054147 Problem Carpal tunnel syndrome of left wrist G56.02 Active 621620657229183 Problem Chronic obstructive pulmonary disease, unspecified COPD ty pe J44.9 Active 11254669 Problem BMI 40.0-44.9, adult Z68.41 Active 558726558 Problem Seasonal allergic rhinitis due to pollen J30.1 Active 86124918 Problem Depression F32.9 Active 80915629 Problem Essential hypertension I10 Active 26105326 Problem Depressive disorder F32.9 Active 22663152 Problem Right-sided low back pain without sciatica M54.5 Active 841566152 Problem Reactive airway disease with out complication, unspecified asthma severity, unspecified whether persistent J45.909 Active 767169246351 Problem Urge incontinence of urine N39.41 Act chen 74268853 Problem Abnormal laboratory test R89.9 Activ e 895870617 Problem COPD with exacerbation J44.1 Active 496899144 ALLERGIES No Information ENCOUNTERS Encounter Location Date Diagnosis [place] [address] [address] Sep, [place] [address] [address] Aug, Pelvic pain R10.2 ; Other sp ecified bacterial agents as the cause of diseases classified elsewhere B96.89 and Acute vaginitis N76.0 [place] [address] [address] Apr, Bronchitis J40 [place] [address] [address] Apr, Acute gastritis without hemo rrhage, unspecified gastritis type K29.00 [place] [address] [place] [id number] [address] [place] [address] Mar, [facility] [address] [place] [id number] [address] [place] [address] Feb, [place] [address] [address] Feb, Mass of right side of neck R 22.1 and Multinodular goiter E04.2 [facility] [address] [place] [id number] [address] [place] [address] Jan, Bronchitis J40 [place] [address] [address] [place] [id number] [place] [address] October, Acquired hypothyroidism E03. 9 [facility] [address] [place] [id number] [place] [address] October, Acute gastritis without hemo rrhage, unspecified gastritis type K29.00 ; Epigastric pain R10.13 ; Essential hypertension I10 ; Screening for colon cancer Z12.11 and BMI 40.0-44.9, adult Z68.41 [place] [address] [address] October, [facility] [place] [address] [address] October, Chest pain R07.9 and Morbid obesity E66.01 [facility] [place] [address] [address] Sep, Generalized abdominal pain R 10.84 ; Morbid obesity E66.01 ; Non-intractable vomiting with nausea, unspecified vomiting type R11.2 and Seasonal allergic rhinitis due to pollen J30.1 [facility] IN [place] [address] [address] Jul, COPD with exacerbation J44.1 ; Viral upper respiratory tract infection J06.9 and Morbid obesity E66.01 [facility] IN [place] [address] [address] Jun, Viral upper respiratory trac t infection J06.9 [place] [address] [address] Apr, Abnormal laboratory test R89 .9 [place] [address] [address] Apr, Abnormal laboratory test R89 .9 [place] [address] [address] Apr, Abnormal laboratory test R89 .9 [place] [address] [address] Apr, [place] [address] [address] Apr, [place] [address] [address] Apr, Nonintractable episodic head ache, unspecified headache type R51 ; Urge incontinence of urine N39.41 ; BMI 40.0-44.9, adult Z68.41 ; Myalgia M79.10 and Acute cystitis without hematuria N30.00 [place] [address] [address] Mar, Nasal congestion R09.81 ; Lo w back pain M54.5 ; Reactive airway disease without complication, unspecified asthma severity, unspecified whether persistent J45.909 ; Other chronic pain G89.29 ; Acute cystitis with hematuria N30.01 and BMI 40.0-44.9, adult Z68.41 [place] [address] [address] Mar, Acute cystitis with hematuri a N30.01 [facility] [address] [address] Mar, BMI 40.0-44.9, adult Z68.41 ; Acute cystitis with hematuria N30.01 ; Acute bilateral low back pain without sciatica M54.5 and Nausea R11.0 [place] [address] [address] Mar, Hypertension I10 ; Acquired hypothyroidism E03.9 ; Esophageal reflux K21.9 ; Chronic obstructive pulmonary disease, unspecified COPD type J44.9 and BMI 40.0-44.9, adult Z68.41 [place] [address] [address] Mar, Hypertension I10 [address] [address] Nov, Hyperlipidemia, unspecified E78.[address] [address] October, Chest pain, unspecified type R07.9 and Acquired hypothyroidism E03.9 [place] [address] [place] [facility] [id number] [address] [place] [address] October, Chest pain, unspecified type R07.9 ; Family history of coronary artery disease Z82.49 ; Carpal tunnel syndrome of left wrist G56.02 ; Hypertension I10 ; Esophageal reflux K21.9 ; Arthralgia M25.50 ; Acquired hypothyroidism E03.9 ; Cough R05 ; Nausea R11.0 ; Weight gain R63.5 and BMI 45.0-49.9, adult Z68.42 [place] [address] [address] [facility] [id number] [address] [place] [address] Jun, Acquired hypothyroidism E03. 9 and Cough R05 [place] [address] [place] [id number] [address] [place] [address] May, [place] [address] [address] Feb, Tarsal tunnel syndrome of timi th lower extremities G57.53 and Neuropathy G62.9 [place] [address] [place] [id number] [place] [address] Dec, Pleuritis R09.1 [place] [address] [place] [id number] [place] [address] Nov, [place] [address] [place] [id number] [place] [address] October, Arthralgia, unspecified join t M25.50 and Allergy, initial encounter T78.40XA [place] [address] [place] [id number] [place] [address] October, [place] [address] [place] [id number] [place] [address] October, Acute recurrent maxillary si nusitis J01.01 and Arthralgia M25.50 [place] [address] [place] [id number] [place] [address] Sep, Pharyngitis due to other org anism J02.8 [place] [address] [address] 30 Aug, 2016 Acute nasopharyngitis J00 [place] [address] [address] 10 Aug, 2016 Multinodular goiter E04.2 [place] [address] [address] 03 Aug, 2016 Thyroid nodule E04.1 [place] [address] [address] 17 Jul, 2016 Tarsal tunnel syndrome of timi th lower extremities G57.[address] [address] Jun, Pneumonia due to infectious organism, unspecified laterality, unspecified part of lung J18.9 [place] [address] [address] Jun, Bronchospasm with bronchitis , acute J20.[address] [address] May, Acute non-recurrent frontal sinusitis J01.[address] [address] May, Flat foot [pes planus] (acqu ired), left foot M21.42 ; Flat foot [pes planus] (acquired), right foot M21.41 and Neuropathy G62.[address] [address] Apr, Chronic tension-type headach e, intractable G44.221 ; Right lower quadrant abdominal pain R10.31 ; Cervicalgia M54.2 ; Acute gastritis without hemorrhage, unspecified gastritis type K29.00 and Hypertension I10 [address] [address] Mar, Depression F32.9 and Anxiety disorder, unspecified F41.9 [facility] [address] [place] [id number] [address] [place] [address] Feb, Depressive disorder F32.9 an d Anxiety disorder, unspecified F41.9 [facility] [address] [place] [id number] [address] [place] [address] Jan, Dysuria R30.0 ; Lower abdomi nal pain R10.30 ; Acute bilateral low back pain without sciatica M54.5 ; Nausea and vomiting, unspecified intactability, vomiting of unspecified type R11.2 ; Pain in right foot M79.671 and Pain of left foot M79.672 [place] [address] [address] [place] [id number] [place] [address] Dec, Urinary tract infection, sit e not specified N39.0 [facility] [address] [place] [id number] [address] [place] [address] Dec, [facility] [address] [place] [id number] [address] [place] [address] Nov, [place] [address] [place] [id number] [address] [place] [address] Nov, Dysuria R30.0 [place] [address] [place] [id number] [place] [address] Nov, Dysuria R30.0 and Acute cyst itis with hematuria N30.01 [facility] [address] [place] [id number] [address] [place] [address] October, Nausea R11.0 [facility] [address] [place] [id number] [address] [place] [address] October, Thyroid nodule E04.1 ; Carpa l tunnel syndrome, left upper limb G56.02 ; Carpal tunnel syndrome, right upper limb G56.01 and Constipation, unspecified constipation type K59.00 [facility] [address] [place] [id number] [address] [place] [address] October, [place] [address] [place] [id number] [place] [address] October, Thyroid nodule E04.1 [facility] [address] [address] October, Cold thyroid nodule E04.1 [place] [address] [address] October, [place] [address] [address] Sep, Thyroid nodule E04.1 [place] [address] [address] Sep, Thyroid nodule E04.1 [place] [address] [address] Sep, Thyroid nodule E04.1 ; Hyper tension I10 ; Esophageal reflux K21.9 and Hyperlipidemia, unspecified E78.5 [place] [address] [address] Aug, Other chronic pain G89.29 ; Sinusitis J32.9 and Hypertension I10 [place] [address] [address] 29 Jul, 2015 [place] [address] [address] 15 Jul, 2015 [place] [address] [address] 10 Jul, 2015 Insomnia G47.00 and Arthralg ia M25.50 [place] [address] [address] 10 Jul, 2015 Depressive disorder F32.9 an d Anxiety disorder, unspecified F41.9 [place] [address] [address] May, Right-sided low back pain wi thout sciatica M54.5 and Depression F32.9 [facility] [address] [facility] [id number] [address] [place] [address] Apr, Hematuria R31.9 [facility] [address] [facility] [id number] [address] [place] [address] Mar, Other chronic pain G89.29 [facility] [address] [place] [id number] [address] [place] [address] Mar, Other chronic pain G89.29 [facility] [address] [facility] [id number] [address] [place] [address] Feb, [facility] [address] [place] [id number] [address] [place] [address] Feb, Other chronic pain 338.29 ; Dysuria 788.1 ; UTI (urinary tract infection) 599.0 ; Insomnia 780.52 ; Hot flashes 627.2 and Hypertension 401.9 [facility] [address] [place] [id number] [address] [place] [address] Feb, Dysuria 788.1 [facility] [address] [place] [id number] [place] [address] Feb, [facility] [address] [place] [id number] [address] [place] [address] Jan, [facility] [address] [place] [id number] [address] [place] [address] Jan, [facility] [address] [place] [id number] [address] [place] [address] Jan, Fibromyalgia 729.1 ; Hyperte nsion 401.9 ; Dysthymia 300.4 and Hot flashes 627.2 [facility] [address] [facility] [id number] [address] [place] [address] Dec, [facility] [address] [place] [id number] [address] [place] [address] Dec, [facility] [address] [id number] [address] [place] [address], [place] [address] Dec, [facility] [address] [id number] [address] [place] [address] Nov, Other chronic pain 338.29 [facility] [address] [id number] [address] [place] [address], [place] [address] October, [facility] [address] [id number] [address] [place] [address], [place] [address] October, [facility] [address] [id number] [address] [place] [address], [place] [address] Sep, [facility] [address] [id number] [address] [place] [address], [place] [address] Sep, [facility] [address] [id number] [address] [place] [address], [place] [address] Aug, [facility] [address] [id number] [address] [place] [address] Aug, [facility] [address] [id number] [address] [place] [address], [place] [address] Aug, [facility] [address] [id number] [address] [place] [address] Aug, [facility] [address] [id number] [address] [place] [address] Aug, [facility] [address] [id number] [address] [place] [address] Aug, [facility] [address] [id number] [address] [place] [address], [place] [address] Aug, [facility] [address] [id number] [address] [place] [address] Aug, [facility] [address] [id number] [address] [place] [address] 11 Aug, 2014 [facility] [address] [id number] [address] [place] [address] Aug, [facility] [address] [id number] [address] [place] [address], [place] [address] Aug, [facility] [address] [id number] [address] [place] [address], [place] [address] Aug, [facility] [address] [id number] [address] [place] [address], [place] [address] Aug, [facility] [address] [id number] [address] [place] [address], [place] [address] Aug, [facility] [address] [id number] [address] [place] [address], [place] [address] Jul, [facility] [address] [id number] [address] [place] [address], [place] [address] Jul, [facility] [address] [id number] [address] [place] [address], [place] [address] Jul, [facility] [address] [id number] [address] [place] [address], [place] [address] Jul, [facility] [address] [id number] [address] [place] [address], [place] [address] Jul, [facility] [address] [id number] [address] [place] [address], [place] [address] Jul, [facility] [address] [id number] [address] [place] [address], [place] [address] Jun, [facility] [address] [id number] [address] [place] [address] Jun, [facility] [address] [id number] [address] [place] [address] Jun, [facility] [address] [id number] [address] [place] [address] Jun, [facility] [address] [id number] [address] [place] [address] May, [facility] [address] [id number] [address] [place] [address], [place] [address] May, [facility] [address] [id number] [address] [place] [address], [place] [address] May, [facility] [address] [id number] [address] [place] [address], [place] [address] May, [facility] [address] [id number] [address] [place] [address], [place] [address] May, [facility] [address] [id number] [address] [place] [address], [place] [address] May, [facility] [address] [id number] [address] [place] [address], [place] [address] May, [facility] [address] [id number] [address] [place] [address], [place] [address] May, [facility] [address] [id number] [address] [place] [address], [place] [address] May, [facility] [address] [id number] [address] [place] [address], [place] [address] May, [facility] [address] [id number] [address] [place] [address], [place] [address] Apr, [facility] [address] [id number] [address] [place] [address], [place] [address] Apr, [facility] [address] [id number] [address] [place] [address], [place] [address] Apr, [facility] [address] [id number] [address] [place] [address], [place] [address] Apr, [facility] [address] [id number] [address] [place] [address], [place] [address] Apr, [facility] [address] [id number] [address] [place] [address], [place] [address] Apr, [facility] [address] [id number] [address] [place] [address], [place] [address] 08 Apr, 2014 [facility] [address] [id number] [address] [place] [address], [place] [address] Apr, [facility] [address] [id number] [address] [place] [address], [place] [address] Apr, [facility] [address] [id number] [address] [place] [address], [place] [address] Mar, [facility] [address] [id number] [address] [place] [address], [place] [address] Mar, [facility] [address] [id number] [address] [place] [address], [place] [address] Mar, [facility] [address] [id number] [address] [place] [address], [place] [address] Mar, [facility] [address] [id number] [address] [place] [address], [place] [address] Mar, [facility] [address] [id number] [address] [place] [address], [place] [address] Mar, [facility] [address] [id number] [address] [place] [address], [place] [address] Mar, [facility] [address] [id number] [address] [place] [address], [place] [address] Mar, [facility] [address] [id number] [address] [place] [address], [place] [address] 30 Feb, 2013 [facility] [address] [id number] [address] [place] [address], [place] [address] 30 Feb, 2013 [facility] [address] [id number] [address] [place] [address], [place] [address] 24 Feb, 2013 [facility] [address] [id number] [address] [place] [address], [place] [address] 24 Feb, 2013 [facility] [address] [id number] [address] [place] [address], [place] [address] 22 Feb, 2013 [facility] [address] [id number] [facility] [address] 22 Feb, 2013 [facility] [address] [id number] [address] [place] [address], [place] [address] Feb, 2013 [facility] [address] [id number] [address] [place] [address], [place] [address] Feb, 2013 [facility] [address] [id number] [address] [place] [address], [place] [address] Feb, 2013 [facility] [address] [id number] [address] [place] [address], [place] [address] Feb, 2013 [facility] [address] [id number] [address] [place] [address], [place] [address] Feb, 2013 [facility] [address] [id number] [address] [place] [address], [place] [address] Feb, 2013 [facility] [address] [id number] [address] [place] [address], [place] [address] Feb, 2013 [facility] [address] [id number] [address] [place] [address], [place] [address] Feb, 2013 [facility] [address] [id number] [address] [place] [address], [place] [address] Jan, [facility] [address] [id number] [address] [place] [address], [place] [address] Jan, [facility] [address] [id number] [address] [place] [address], [place] [address] Dec, [facility] [address] [id number] [address] [place] [address], [place] [address] Dec, [facility] [address] [id number] [address] [place] [address], [place] [address] Dec, [facility] [address] [id number] [address] [place] [address], [place] [address] Dec, [facility] [address] [id number] [address] [place] [address], [place] [id number] Dec, [facility] [address] [id number] [address] [place] [address], [place] [address] 15 Dec, 2013 [facility] [address] [id number] [address] [place] [address], [place] [address] Dec, 2013 [facility] [address] [id number] [address] [place] [address], [place] [address] 15 Dec, 2013 [facility] [address] [id number] [address] [place] [address], [place] [address] Dec, 2013 [facility] [address] [id number] [address] [place] [address], [place] [address] Dec, 2013 [facility] [address] [id number] [address] [place] [address], [place] [address] Dec, 2013 [facility] [address] [id number] [address] [place] [address], [place] [address] Dec, 2013 [facility] [address] [id number] [address] [place] [address], [place] [address] Dec, 2013 [facility] [address] [id number] [address] [place] [address], [place] [address] Dec, 2013 [facility] [address] [id number] [address] [place] [address], [place] [address] Dec, 2013 [facility] [address] [id number] [address] [place] [address], [place] [address] Dec, 2013 [facility] [address] [id number] [address] [place] [address], [place] [address] Dec, 2013 [facility] [address] [id number] [address] [place] [address], [place] [address] Dec, [facility] [address] [id number] [address] [place] [address], [place] [address] Dec, [facility] [address] [id number] [address] [place] [address], [place] [address] Nov, [facility] [address] [id number] [address] [place] [address], [place] [address] Nov, [facility] [address] [id number] [address] [place] [address], [place] [address] Nov, [facility] [address] [id number] [address] [place] [address], [place] [address] Nov, [facility] [address] [id number] [address] [place] [address], [place] [address] Nov, [facility] [address] [id number] [address] [place] [address], [place] [address] Nov, [facility] [address] [id number] [address] [place] [address], [place] [address] Nov, [facility] [address] [id number] [address] [place] [address], [place] [address] Nov, [facility] [address] [id number] [address] [place] [address], [place] [address] Nov, [facility] [address] [id number] [address] [place] [address], [place] [address] October, [facility] [address] [id number] [address] [place] [address], [place] [address] October, [facility] [address] [id number] [address] [place] [address], [place] [address] October, [facility] [address] [id number] [address] [place] [address], [place] [address] October, [facility] [address] [id number] [address] [place] [address], [place] [address] October, [facility] [address] [id number] [address] [place] [address], [place] [address] October, [facility] [address] [id number] [address] [place] [address], [place] [address] October, [facility] [address] [id number] [address] [place] [address], [place] [address] October, [facility] [address] [id number] [facility] [address] Sep, [facility] [address] [id number] [address] [place] [address], [place] [address] Sep, [facility] [address] [id number] [address] [place] [address], [place] [address] Sep, [facility] [address] [id number] [address] [place] [address], [place] [address] Sep, [facility] [address] [id number] [address] [place] [address], [place] [address] Sep, [facility] [address] [id number] [address] [place] [address], [place] [address] Sep, [facility] [address] [id number] [address] [place] [address], [place] [address] Sep, [facility] [address] [id number] [address] [place] [address], [place] [address] Aug, [facility] [address] [id number] [address] [place] [address], [place] [address] Aug, [facility] [address] [id number] [address] [place] [address], [place] [address] Aug, [facility] [address] [id number] [address] [place] [address], [place] [address] Aug, [facility] [address] [id number] [address] [place] [address], [place] [address] Aug, [facility] [address] [id number] [address] [place] [address], [place] [address] Aug, [facility] [address] [id number] [address] [place] [address], [place] [address] Jul, [facility] [address] [id number] [address] [place] [address], [place] [address] Jul, [facility] [address] [id number] [address] [place] [address], [place] [address] Jul, [facility] [address] [id number] [address] [place] [address], [place] [address] Jul, [facility] [address] [id number] [address] [place] [address], [place] [address] Jul, [facility] [address] [id number] [address] [place] [address], [place] [address] Jul, [facility] [address] [id number] [address] [place] [address], [place] [address] Jun, [facility] [address] [id number] [address] [place] [address], [place] [address] Jun, [facility] [address] [id number] [address] [place] [address], [place] [address] Jun, [facility] [address] [id number] [address] [place] [address], [place] [address] Jun, [facility] [address] [id number] [address] [place] [address], [place] [address] Jun, [facility] [address] [id number] [address] [place] [address], [place] [address] Jun, [facility] [address] [id number] [address] [place] [address], [place] [address] Jun, [facility] [address] [id number] [address] [place] [address], [place] [address] Jun, [facility] [address] [id number] [address] [place] [address], [place] [address] Jun, [facility] [address] [id number] [address] [place] [address], [place] [address] Jun, [facility] [address] [id number] [address] [place] [address], [place] [address] Jun, [facility] [address] [id number] [address] [place] [address], [place] [address] Jun, [facility] [address] [id number] [address] [place] [address], [place] [address] 14 Jun, 2013 [facility] [address] [id number] [address] [place] [address], [place] [address] 30 May, 2013 [facility] [address] [id number] [address] [place] [address], [place] [address] 30 May, 2013 [facility] [address] [id number] [address] [place] [address], [place] [address] 30 May, 2013 [facility] [address] [id number] [address] [place] [address], [place] [address] 30 May, 2013 [facility] [address] [id number] [address] [place] [address], [place] [address] May, [facility] [address] [id number] [address] [place] [address], [place] [address] May, [facility] [address] [id number] [address] [place] [address], [place] [address] May, [facility] [address] [id number] [address] [place] [address], [place] [address] May, [facility] [address] [id number] [address] [place] [address], [place] [address] May, [facility] [address] [id number] [address] [place] [address], [place] [address] May, [facility] [address] [id number] [address] [place] [address], [place] [address] May, [facility] [address] [id number] [address] [place] [address], [place] [address] May, [facility] [address] [id number] [address] [place] [address], [place] [address] May, [facility] [address] [id number] [address] [place] [address], [place] [address] May, [facility] [address] [id number] [address] [place] [address], [place] [address] May, [facility] [address] [id number] [address] [place] [address], [place] [address] 08 May, 2013 [facility] [address] [id number] [address] [place] [address], [place] [address] May, [facility] [address] [id number] [address] [place] [address], [place] [address] May, [facility] [address] [id number] [address] [place] [address], [place] [address] May, [facility] [address] [id number] [address] [place] [address], [place] [address] May, [facility] [address] [id number] [address] [place] [address], [place] [address] May, [facility] [address] [id number] [address] [place] [address], [place] [address] Apr, [facility] [address] [id number] [address] [place] [address], [place] [address] Apr, [facility] [address] [id number] [address] [place] [address], [place] [address] Apr, [facility] [address] [id number] [address] [place] [address], [place] [address] Apr, [facility] [address] [id number] [address] [place] [address], [place] [address] Mar, [facility] [address] [id number] [address] [place] [address], [place] [address] 23 Feb, 2013 [facility] [address] [id number] [address] [place] [address], [place] [address] 16 Sep2012 [facility] [address] [id number] [address] [place] [address], [place] [address] 13 Feb, 2013 [facility] [address] [id number] [address] [place] [address], [place] [address] 10 Feb, 2013 [facility] [address] [id number] [address] [place] [address] [place] [address] Feb, [facility] [address] [id number] [address] [place] [address], [place] [address] Feb, [facility] [address] [id number] [address] [place] [address], [place] [address] Jan, [facility] [address] [id number] [address] [place] [address], [place] [address] Jan, [facility] [address] [id number] [address] [place] [address], [place] [address] Jan, [facility] [address] [id number] [address] [place] [address], [place] [address] Dec, [facility] [address] [id number] [address] [place] [address], [place] [address] Dec, [facility] [address] [id number] [address] [place] [address], [place] [address] Dec, [facility] [address] [id number] [address] [place] [address], [place] [address] Dec, [facility] [address] [id number] [address] [place] [address], [place] [address] Dec, [facility] [address] [id number] [address] [place] [address], [place] [address] Nov, [facility] [address] [id number] [address] [place] [address], [place] [address] Nov, [facility] [address] [id number] [address] [place] [address], [place] [address] Nov, [facility] [address] [id number] [address] [place] [address], [place] [address] Nov, [facility] [address] [id number] [address] [place] [address], [place] [address] Nov, [facility] [address] [id number] [address] [place] [address], [place] [address] Nov, [facility] [address] [id number] [address] [place] [address], [place] [address] 07 Nov, 2012 [facility] [address] [id number] [address] [place] [address], [place] [address] Nov, [facility] [address] [id number] [address] [place] [address], [place] [address] Nov, [facility] [address] [id number] [address] [place] [address], [place] [address] Nov, [facility] [address] [id number] [address] [place] [address], [place] [address] October, [facility] [address] [id number] [address] [place] [address], [place] [address] October, [facility] [address] [id number] [address] [place] [address], [place] [address] Sep, [facility] [address] [id number] [address] [place] [address], [place] [address] Sep, [facility] [address] [id number] [address] [place] [address], [place] [address] Sep, [facility] [address] [id number] [address] [place] [address], [place] [address] Sep, [facility] [address] [id number] [address] [place] [address], [place] [address] Sep, [facility] [address] [id number] [address] [place] [address], [place] [address] Aug, [facility] [address] [id number] [address] [place] [address], [place] [address] Aug, [facility] [address] [id number] [address] [place] [address], [place] [address] Jul, [facility] [address] [id number] [address] [place] [address], [place] [address] Jul, [facility] [address] [id number] [address] [address] Jun, [facility] [address] [id number] [address] [place] [address], [place] [address] 14 Jun, 2012 [facility] [address] [id number] [address] [place] [address], [place] [address] 05 May, 2012 [facility] [address] [id number] [address] [place] [address], [place] [address] May, [facility] [address] [id number] [address] [place] [address], [place] [address] May, [facility] [address] [id number] [address] [place] [address], [place] [address] May, [facility] [address] [id number] [address] [place] [address], [place] [address] Apr, [facility] [address] [id number] [address] [place] [address], [place] [address] Apr, [facility] [address] [id number] [address] [place] [address], [place] [address] Apr, [facility] [address] [id number] [address] [place] [address], [place] [address] Apr, [facility] [address] [id number] [address] [place] [address], [place] [address] 20 Apr, 2012 [facility] [address] [id number] [address] [place] [address], [place] [address] 14 Apr, 2012 [facility] [address] [id number] [address] [place] [address] 14 Apr, 2012 [facility] [address] [id number] [address] [place] [address], [place] [address] Apr, [facility] [address] [id number] [address] [place] [address], [place] [address] 12 Apr, 2012 [facility] [address] [id number] [address] [place] [address], [place] [address] 15 Mar, 2012 [facility] [address] [id number] [address] [place] [address], [place] [address] Mar, [facility] [address] [id number] [address] [place] [address], [place] [address] Feb, [facility] [address] [id number] [address] [place] [address], [place] [address] Jan, [facility] [address] [id number] [address] [place] [address], [place] [address] Jan, [facility] [address] [id number] [address] [place] [address], [place] [address] Dec, [facility] [address] [id number] [address] [place] [address], [place] [address] Nov, [facility] [address] [id number] [address] [place] [address], [place] [address] Nov, [facility] [address] [id number] [address] [place] [address], [place] [address] October, [facility] [address] [id number] [address] [place] [address], [place] [address] October, [facility] [address] [id number] [address] [place] [address], [place] [address] Sep, [facility] [address] [id number] [address] [place] [address], [place] [address] Sep, [facility] [address] [id number] [address] [place] [address], [place] [address] May, [facility] [address] [id number] [address] [place] [address], [place] [address] Apr, [facility] [address] [id number] [address] [place] [address], [place] [address] Apr, [facility] [address] [id number] [address] [place] [address], [place] [address] Apr, [facility] [address] [id number] [address] [place] [address], [place] [address] Apr, [facility] [address] [id number] [address] [place] [address] Apr, [facility] [address] [id number] [address] [place] [address] Apr, [facility] [address] [id number] [address] [place] [address] Apr, [facility] [address] [id number] [address] [place] [address] Apr, [facility] [address] [id number] [address] [place] [address] Mar, [facility] [address] [id number] [address] [place] [address] Mar, [facility] [address] [id number] [address] [place] [address] Mar, [facility] [address] [id number] [address] [place] [address] Mar, [facility] [address] [id number] [address] [place] [address] Mar, [facility] [address] [id number] [address] [place] [address] Mar, IMMUNIZATIONS No Known Immunizations SOCIAL HISTORY [...] tubal ligation Hospitalization History Mental floor at [facility]
--- OUTSIDE RECORDS SUMMARY | 2019-12-24 19:41 | XMS REPORT ---
Author Author Trey ANDRADE Organization [facility] Address [address] [place] [address] Care Team Providers Care Equal Opportunity Representative Name Role Phone SURESH ANDRADE Unavailable PROBLEMS Type Condition ICD9-CM Code MOP72-QC Code Onset Dates Condition S tatus SNOMED Code Problem Nondependent 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 Ac tive 812434605 Problem Other chronic pain G89.29 Active 1 55237818 Problem Unspecified epilepsy without mention of intractable ep ilepsy G40.909 Active 64133328 Problem Hyperlipidemia, unspecified E78.5 Ac tive 07322960 Problem Hypertension I10 Active 6792946 3 Problem Esophageal reflux K21.9 Active 23 0293333 Problem Rheumatoid arthritis M06.9 Active 48706291 Problem Cough R05 Active 23040933 Problem Acquired hypothyroidism E03.9 Active 190337267 Problem Unspecified open-angle glaucoma, stage unspecified H40.10X0 Feb, Active 73583597 Problem Presbyopia H52.4 Active 69255231 Problem Insomnia G47.00 Active 933684565 Problem Arthralgia M25.50 Active 03861296 Problem Thyroid nodule E04.1 Active 71681 5005 Problem Anxiety disorder, unspecified F41.9 Active 268438387 Problem Chronic tension-type headache, intractable G44.221 Active 562491704 Problem Neuropathy G62.9 Active 560386256 Problem Goiter E04.9 Active 1064796 Problem Multinodular goiter E04.2 Active 168699580 Problem Carpal tunnel syndrome of left wrist G56.02 Active 095894888193400 Problem Chronic obstructive pulmonary disease, unspecified COPD ty pe J44.9 Active 57234637 Problem BMI 40.0-44.9, adult Z68.41 Active 054420275 Problem Seasonal allergic rhinitis due to pollen J30.1 Active 32522033 Problem Depression F32.9 Active 53188704 Problem Essential hypertension I10 Active 39266095 Problem Depressive disorder F32.9 Active 31893301 Problem Right-sided low back pain without sciatica M54.5 Active 510276394 Problem Reactive airway disease with out complication, unspecified asthma severity, unspecified whether persistent J45.909 Active 190275447498 Problem Urge incontinence of urine N39.41 Act chen 54595586 Problem Abnormal laboratory test R89.9 Activ e 621491095 Problem COPD with exacerbation J44.1 Active 160901324 ALLERGIES No Information ENCOUNTERS Encounter Location Date Diagnosis [place] [address] [address] Sep, [place] [address] [address] Aug, Pelvic pain R10.2 ; Other specified bact erial agents as the cause of diseases classified elsewhere B96.89 and Acute vaginitis N76.0 [place] [address] [address] Apr, Bronchitis J40 [place] [address] [address] Apr, Acute gastritis without hemorrhage, unsp ecified gastritis type K29.00 [place] [address] [address] Mar, [facility] [address] [address] Feb, [place] [address] [address] Feb, Mass of right side of neck R22.1 and Mul tinodular goiter E04.2 [facility] [address] [facility] [id number] [address] [place] [address] Jan, Bronchitis J40 [facility] [address] [address] October, Acquired hypothyroidism E03.9 [place] [address] [address] October, Acute gastritis without hemorrhage, unsp ecified gastritis type K29.00 ; Epigastric pain R10.13 ; Essential hypertension I10 ; Screening for colon cancer Z12.11 and BMI 40.0-44.9, adult Z68.41 [place] [address] [address] October, [facility] [place] [address] [address] October, Chest pain R07.9 and Morbid obesity E66.01 [facility] [address] [address] Sep, Generalized abdominal pain R 10.84 ; Morbid obesity E66.01 ; Non-intractable vomiting with nausea, unspecified vomiting type R11.2 and Seasonal allergic rhinitis due to pollen J30.1 [facility] [address] [address] Jul, COPD with exacerbation J44.1 ; Viral upper respiratory tract infection J06.9 and Morbid obesity E66.01 [facility] [place] [address] [address] Jun, Viral upper respiratory trac t infection J06.9 [place] [address] [address] Apr, Abnormal laboratory test R89.9 [place] [address] [address] Apr, Abnormal laboratory test R89.9 [place] [address] [address] Apr, Abnormal laboratory test R89.9 [place] [address] [address] Apr, [place] [address] [address] Apr, [place] [address] [address] Apr, Nonintractable episodic headache, unspec ified headache type R51 ; Urge incontinence of urine N39.41 ; BMI 40.0-44.9, adult Z68.41 ; Myalgia M79.10 and Acute cystitis without hematuria N30.00 [facility] [address] [address] Mar, Nasal congestion R09.81 ; Low back pain M54.5 ; Reactive airway disease without complication, unspecified asthma severity, unspecified whether persistent J45.909 ; Other chronic pain G89.29 ; Acute cystitis with hematuria N30.01 and BMI 40.0-44.9, adult Z68.41 [place] [address] [address] Mar, Acute cystitis with hematuria N30.01 [facility] [address] [facility] [id number] [address] [place] [address] Mar, BMI 40.0-44.9, adult Z68.41 ; Acute cystitis with hematuria N30.01 ; Acute bilateral low back pain without sciatica M54.5 and Nausea R11.0 [place] [address] [address] Mar, Hypertension I10 ; Acquired hypothyroidi sm E03.9 ; Esophageal reflux K21.9 ; Chronic obstructive pulmonary disease, unspecified COPD type J44.9 and BMI 40.0-44.9, adult Z68.41 [place] [address] [address] Mar, Hypertension I10 [place] [address] [address] Nov, Hyperlipidemia, unspecified E78.5 [place] [address] [address] October, Chest pain, unspecified type R07.9 and A cquired hypothyroidism E03.9 [place] [address] [address] October, Chest pain, unspecified type R07.9 ; Fam demetrius history of coronary artery disease Z82.49 ; Carpal tunnel syndrome of left wrist G56.02 ; Hypertension I10 ; Esophageal reflux K21.9 ; Arthralgia M25.50 ; Acquired hypothyroidism E03.9 ; Cough R05 ; Nausea R11.0 ; Weight gain R63.5 and BMI 45.0-49.9, adult Z68.[address] [address] Jun, Acquired hypothyroidism E03.9 and Cough R05 [address] [address] May, [address] [address] Feb, Tarsal tunnel syndrome of both lower ext remities G57.53 and Neuropathy G62.[address] [address] Dec, Pleuritis R09.[address] [address] Nov, [address] [address] October, Arthralgia, unspecified joint M25.50 and Allergy, initial encounter T78.40XA [address] [address] October, [address] [address] October, Acute recurrent maxillary sinusitis J01. 01 and Arthralgia M25.[address] [address] Sep, Pharyngitis due to other organism J02.[address] [address] Aug, Acute nasopharyngitis J00 [address] [place] [address] Aug, Multinodular goiter E04.2 [place] [address] [address] Aug, Thyroid nodule E04.1 [place] [address] [address] 17 Jul, 2016 Tarsal tunnel syndrome of both lower ext remities G57.53 [place] [address] [address] Jun, Pneumonia due to infectious organism, un specified laterality, unspecified part of lung J18.9 [place] [address] [address] Jun, Bronchospasm with bronchitis, acute J20. 9 [place] [address] [address] May, Acute non-recurrent frontal sinusitis J0 1.10 [place] [address] [address] May, Flat foot [pes planus] (acquired), left foot M21.42 ; Flat foot [pes planus] (acquired), right foot M21.41 and Neuropathy G62.9 [place] [address] [address] Apr, Chronic tension-type headache, intractab le G44.221 ; Right lower quadrant abdominal pain R10.31 ; Cervicalgia M54.2 ; Acute gastritis without hemorrhage, unspecified gastritis type K29.00 and Hypertension I10 [place] [address] [address] Mar, Depression F32.9 and Anxiety disorder, u nspecified F41.9 [place] [address] [address] Feb, Depressive disorder F32.9 and Anxiety di sorder, unspecified F41.9 [place] [address] [address] Jan, Dysuria R30.0 ; Lower abdominal pain R10 .30 ; Acute bilateral low back pain without sciatica M54.5 ; Nausea and vomiting, unspecified intactability, vomiting of unspecified type R11.2 ; Pain in right foot M79.671 and Pain of left foot M79.672 [place] [address] [address] Dec, Urinary tract infection, site not specif ied N39.0 [place] [address] [address] Dec, [place] [address] [address] Nov, [place] [address] [address] Nov, Dysuria R30.0 [place] [address] [address] Nov, Dysuria R30.0 and Acute cystitis with he maturia N30.01 [place] [address] [address] October, Nausea R11.0 [place] [address] [address] October, Thyroid nodule E04.1 ; Carpal tunnel syn drome, left upper limb G56.02 ; Carpal tunnel syndrome, right upper limb G56.01 and Constipation, unspecified constipation type K59.00 [place] [address] [address] October, [place] [address] [address] October, Thyroid nodule E04.1 [place] [address] [address] October, Cold thyroid nodule E04.1 [place] [address] [address] October, [place] [address] [address] Sep, Thyroid nodule E04.1 [place] [address] [address] Sep, Thyroid nodule E04.1 [place] [address] [address] Sep, Thyroid nodule E04.1 ; Hypertension I10 ; Esophageal reflux K21.9 and Hyperlipidemia, unspecified E78.5 [place] [address] [address] Aug, Other chronic pain G89.29 ; Sinusitis J3 2.9 and Hypertension I10 [place] [address] [address] 29 Jul, [address] [address] 15 Jul, 2015 [place] [address] [address] 10 Jul, 2015 Insomnia G47.00 and Arthralgia M25.[address] [address] 10 Jul, 2015 Depressive disorder F32.9 and Anxiety di sorder, unspecified F41.[address] [address] May, Right-sided low back pain without sciati ca M54.5 and Depression F32.[address] [address] Apr, Hematuria R31.[address] [address] Mar, Other chronic pain G89.[address] [address] Mar, Other chronic pain G89.29 [facility] [address] [place] [id number] [place] [address] Feb, [facility] [address] [address] Feb, Other chronic pain 338.29 ; Dysuria 788. 1 ; UTI (urinary tract infection) 599.0 ; Insomnia 780.52 ; Hot flashes 627.2 and Hypertension 401.9 [facility] [address] [address] Feb, Dysuria 788.1 [facility] [address] [address] Feb, [facility] [address] [address] Jan, [facility] [address] [address] Jan, [facility] [address] [address] Jan, Fibromyalgia 729.1 ; Hypertension 401.9 ; Dysthymia 300.4 and Hot flashes 627.2 [facility] [address] [place] [id number] [place] [address] Dec, [facility] [address] [address] Dec, [facility] [address] [address] Dec, [facility] [address] [address] Nov, Other chronic pain 338.29 [facility] [address] [address] October, [facility] [address] [address] October, [facility] [address] [address] Sep, [facility] [address] [id number] [place] [address] 13 Sep, 2014 [facility] [address] [id number] [place] [address] Aug, [facility] [address] [id number] [place] [address] Aug, [facility] [address] [id number] [place] [address] Aug, [facility] [address] [id number] [place] [address] Aug, [facility] [address] [id number] [place] [address] Aug, [facility] [address] [id number] [place] [address] Aug, [facility] [address] [id number] [place] [address] Aug, [facility] [address] [id number] [place] [address] Aug, [facility] [address] [id number] [place] [address] Aug, [facility] [address] [id number] [place] [address] Aug, [facility] [address] [id number] [place] [address] Aug, [facility] [address] [id number] [place] [address] Aug, [facility] [address] [id number] [place] [address] Aug, [facility] [address] [id number] [place] [address] Aug, [facility] [address] [id number] [place] [address] Jul, [facility] [address] [id number] [place] [address] Jul, [facility] [address] [id number] [place] [address] Jul, [facility] [address] [id number] [place] [address] Jul, [facility] [address] [id number] [place] [address] Jul, [facility] [address] [id number] [place] [address] Jul, [facility] [address] [id number] [place] [address] Jun, [facility] [address] [id number] [place] [address] Jun, [facility] [address] [id number] [place] [address] Jun, [facility] [address] [id number] [place] [address] Jun, [facility] [address] [id number] [place] [address] May, [facility] [address] [id number] [place] [address] May, [facility] [address] [id number] [place] [address] May, [facility] [address] [id number] [place] [address] May, [facility] [address] [id number] [place] [address] May, [facility] [address] [id number] [place] [address] May, [facility] [address] [id number] [place] [address] May, [facility] [address] [id number] [place] [address] May, [facility] [address] [id number] [place] [address] May, [facility] [address] [id number] [place] [address] May, [facility] [address] [id number] [place] [address] Apr, [facility] [address] [id number] [place] [address] Apr, [facility] [address] [id number] [place] [address] Apr, [facility] [address] [id number] [place] [address] Apr, [facility] [address] [id number] [place] [address] Apr, [facility] [address] [id number] [place] [address] Apr, [facility] [address] [id number] [place] [address] Apr, [facility] [address] [id number] [place] [address] Apr, [facility] [address] [id number] [place] [address] Apr, [facility] [address] [id number] [place] [address] Mar, [facility] [address] [id number] [place] [address] Mar, [facility] [address] [id number] [place] [address] Mar, [facility] [address] [place] [id number] [place] [address] Mar, [facility] [address] [id number] [place] [address] Mar, [facility] [address] [id number] [place] [address] Mar, [facility] [address] [facility] [id number] [place] [address] 08 Mar, 2013 [facility] [address] [id number] [place] [address] 08 Mar, 2013 [facility] [address] [id number] [place] [address] 30 Sep, 2013 [facility] [address] [id number] [place] [address] 30 Sep, 2013 [facility] [address] [facility] [id number] [place] [address] 24 Sep, 2013 [facility] [address] [id number] [place] [address] 24 Sep, 2013 [facility] [address] [id number] [place] [address] 22 Sep, 2013 [facility] [address] [id number] [place] [address] 22 Sep, 2013 [facility] [address] [id number] [place] [address] 10 Sep, 2013 [facility] [address] [id number] [place] [address] 10 Sep, 2013 [facility] [address] [id number] [place] [address] 03 Sep, 2013 [facility] [address] [id number] [place] [address] 03 Sep, 2013 [facility] [address] [id number] [place] [address] 03 Sep, 2013 [facility] [address] [id number] [place] [address] 03 Sep, 2013 [facility] [address] [id number] [place] [address] 03 Sep, 2013 [facility] [address] [id number] [place] [address] 03 Sep, 2013 [facility] [address] [id number] [place] [address] Jan, 2013 [facility] [address] [id number] [place] [address] Jan, [facility] [address] [facility] [id number] [place] [address] Dec, [facility] [address] [facility] [id number] [place] [address] Dec, [facility] [address] [facility] [id number] [place] [address] Dec, [facility] [address] [facility] [id number] [place] [address] Dec, [facility] [address] [facility] [id number] [place] [id number] Dec, [facility] [address] [id number] [place] [address] Dec, [facility] [address] [id number] [place] [address] Dec, [facility] [address] [facility] [id number] [place] [address] Dec, [facility] [address] [id number] [place] [address] Dec, [facility] [address] [id number] [place] [address] Dec, 2013 [facility] [address] [id number] [place] [address] Dec, 2013 [facility] [address] [facility] [id number] [place] [address] Dec, 2013 [facility] [address] [id number] [place] [address] Dec, 2013 [facility] [address] [id number] [place] [address] Dec, 2013 [facility] [address] [id number] [place] [address] Dec, 2013 [facility] [address] [id number] [place] [address] Dec, [facility] [address] [facility] [id number] [place] [address] Dec, [facility] [address] [facility] [id number] [place] [address] Dec, [facility] [address] [id number] [place] [address] Dec, [facility] [address] [facility] [id number] [place] [address] Nov, [facility] [address] [facility] [id number] [place] [address] Nov, [facility] [address] [id number] [place] [address] Nov, [facility] [address] [id number] [place] [address] Nov, [facility] [address] [id number] [place] [address] Nov, [facility] [address] [id number] [place] [address] Nov, [facility] [address] [id number] [place] [address] Nov, [facility] [address] [id number] [place] [address] Nov, [facility] [address] [id number] [place] [address] Nov, [facility] [address] [facility] [id number] [place] [address] October, [facility] [address] [id number] [place] [address] October, [facility] [address] [id number] [place] [address] October, [facility] [address] [id number] [place] [address] October, [facility] [address] [id number] [place] [address] October, [facility] [address] [id number] [place] [address] October, [facility] [address] [id number] [place] [address] October, [facility] [address] [id number] [place] [address] October, [facility] [address] [id number] [place] [address] Sep, [facility] [address] [id number] [place] [address] Sep, [facility] [address] [id number] [place] [address] Sep, [facility] [address] [id number] [place] [address] Sep, [facility] [address] [id number] [place] [address] Sep, [facility] [address] [id number] [place] [address] Sep, [facility] [address] [id number] [place] [address] Sep, [facility] [address] [id number] [place] [address] Aug, [facility] [address] [id number] [place] [address] Aug, [facility] [address] [id number] [place] [address] Aug, [facility] [address] [id number] [place] [address] Aug, [facility] [address] [id number] [place] [address] Aug, [facility] [address] [id number] [place] [address] Aug, [facility] [address] [facility] [id number] [place] [address] Jul, [facility] [address] [id number] [place] [address] Jul, [facility] [address] [id number] [place] [address] Jul, [facility] [address] [id number] [place] [address] Jul, [facility] [address] [id number] [place] [address] Jul, [facility] [address] [id number] [place] [address] Jul, [facility] [address] [id number] [place] [address] Jun, [facility] [address] [id number] [place] [address] Jun, [facility] [address] [id number] [place] [address] Jun, [facility] [address] [id number] [place] [address] Jun, [facility] [address] [id number] [place] [address] Jun, [facility] [address] [id number] [place] [address] Jun, [facility] [address] [id number] [place] [address] Jun, [facility] [address] [id number] [place] [address] Jun, [facility] [address] [id number] [place] [address] Jun, [facility] [address] [id number] [place] [address] Jun, [facility] [address] [id number] [place] [address] 14 Jun, 2013 [facility] [address] [id number] [place] [address] 14 Jun, 2013 [facility] [address] [id number] [place] [address] 14 Jun, 2013 [facility] [address] [id number] [place] [address] 30 May, 2013 [facility] [address] [id number] [place] [address] 30 May, 2013 [facility] [address] [id number] [place] [address] 30 May, 2013 [facility] [address] [id number] [place] [address] 30 May, 2013 [facility] [address] [id number] [place] [address] 26 May, 2012 [facility] [address] [id number] [place] [address] 14 May, 2013 [facility] [address] [id number] [place] [address] 14 May, 2013 [facility] [address] [id number] [place] [address] 12 May, 2013 [facility] [address] [id number] [place] [address] 12 May, 2013 [facility] [address] [id number] [place] [address] 11 May, 2013 [facility] [address] [id number] [place] [address] 11 May, 2013 [facility] [address] [id number] [place] [address] 10 May, 2013 [facility] [address] [id number] [place] [address] 10 May, 2013 [facility] [address] [id number] [place] [address] 09 May, 2012 [facility] [address] [id number] [place] [address] 09 May, 2012 [facility] [address] [id number] [place] [address] 08 May, 2012 [facility] [address] [id number] [place] [address] May, 2012 [facility] [address] [id number] [place] [address] May, 2012 [facility] [address] [id number] [place] [address] May, 2012 [facility] [address] [id number] [place] [address] May, 2012 [facility] [address] [id number] [place] [address] May, 2012 [facility] [address] [id number] [place] [address] Apr, [facility] [address] [id number] [place] [address] Apr, [facility] [address] [id number] [place] [address] Apr, [facility] [address] [id number] [place] [address] Apr, [facility] [address] [id number] [place] [address] 08 Mar, 2013 [facility] [address] [id number] [place] [address] 23 Sep, 2012 [facility] [address] [id number] [place] [address] 16 Sep, 2012 [facility] [address] [id number] [place] [address] 13 Sep, 2012 [facility] [address] [id number] [place] [address] 10 Sep, 2012 [facility] [address] [id number] [place] [address] 09 Feb, 2012 [facility] [address] [id number] [place] [address] Feb, [facility] [address] [id number] [place] [address] Jan, [facility] [address] [id number] [place] [address] Jan, [facility] [address] [id number] [place] [address] Jan, [facility] [address] [id number] [place] [address] Dec, [facility] [address] [id number] [place] [address] Dec, [facility] [address] [id number] [place] [address] Dec, [facility] [address] [id number] [place] [address] Dec, [facility] [address] [id number] [place] [address] Dec, [facility] [address] [id number] [place] [address] Nov, [facility] [address] [id number] [place] [address] Nov, [facility] [address] [id number] [place] [address] Nov, [facility] [address] [id number] [place] [address] Nov, [facility] [address] [id number] [place] [address] Nov, [facility] [address] [id number] [place] [address] Nov, [facility] [address] [id number] [place] [address] Nov, [facility] [address] [id number] [place] [address] Nov, [facility] [address] [id number] [place] [address] Nov, [facility] [address] [id number] [place] [address] Nov, [facility] [address] [id number] [place] [address] October, [facility] [address] [id number] [place] [address] October, [facility] [address] [id number] [place] [address] Sep, [facility] [address] [id number] [place] [address] Sep, [facility] [address] [id number] [place] [address] Sep, [facility] [address] [id number] [place] [address] Sep, [facility] [address] [facility] [id number] [place] [address] Sep, [facility] [address] [id number] [place] [address] Aug, [facility] [address] [id number] [place] [address] Aug, [facility] [address] [id number] [place] [address] Jul, [facility] [address] [id number] [place] [address] Jul, [facility] [address] [id number] [place] [address] Jun, [facility] [address] [facility] [id number] [place] [address] Jun, [facility] [address] [id number] [place] [address] 05 May, 2012 [facility] [address] [id number] [place] [address] May, [facility] [address] [id number] [place] [address] May, [facility] [address] [facility] [id number] [place] [address] May, [facility] [address] [facility] [id number] [place] [address] Apr, [facility] [address] [id number] [place] [address] Apr, [facility] [address] [id number] [place] [address] Apr, [facility] [address] [id number] [place] [address] Apr, [facility] [address] [id number] [place] [address] Apr, [facility] [address] [id number] [place] [address] Apr, [facility] [address] [facility] [id number] [place] [address] Apr, [facility] [address] [id number] [place] [address] Apr, [facility] [address] [id number] [place] [address] Apr, [facility] [address] [id number] [place] [address] 15 Mar, 2012 [facility] [address] [id number] [place] [address] 15 Mar, 2012 [facility] [address] [id number] [place] [address] 05 Feb, 2012 [facility] [address] [id number] [place] [address] Jan, [facility] [address] [id number] [place] [address] Jan, [facility] [address] [id number] [place] [address] Dec, [facility] [address] [id number] [place] [address] Nov, [facility] [address] [id number] [place] [address] Nov, [facility] [address] [id number] [place] [address] October, [facility] [address] [id number] [place] [address] October, [facility] [address] [id number] [place] [address] Sep, [facility] [address] [id number] [place] [address] Sep, [facility] [address] [id number] [place] [address] May, [facility] [address] [facility] [id number] [place] [address] Apr, [facility] [address] [facility] [id number] [place] [address] Apr, [facility] [address] [id number] [place] [address] Apr, [facility] [address] [id number] [place] [address] 15 Apr, 2011 [facility] [address] [facility] [id number] [place] [address] 15 Apr, 2011 [facility] [id number] [place] [address] 10 Apr, 2011 [facility] [address] [facility] [id number] [place] [address] 10 Apr, 2011 [facility] [address] [id number] [place] [address] Apr, [facility] [address] [id number] [place] [address] Mar, [facility] [address] [facility] [id number] [place] [address] Mar, [facility] [address] [facility] [id number] [place] [address] Mar, [facility] [address] [facility] [id number] [place] [address] Mar, [facility] [address] [facility] [id number] [place] [address] Mar, [facility] [address] [id number] [place] [address] Mar, IMMUNIZATIONS No Known Immunizations SOCIAL HISTORY Never Assessed REASON FOR VISIT PLAN OF CARE VITAL SIGNS Height 62 in 2013-07-10 Weight 239 lbs 2013-07-10 Temperature 97 degrees Fahrenheit 2013-07-10 Heart Rate 74 bpm 2013-07-10 Respiratory Rate 20 2013-07-10 Blood pressure systolic 122 mmHg 2013-07-10 Blood pressure diastolic 84 mmHg 2013-07-10 MEDICATIONS Unknown Medications RESULTS No Results PROCEDURES [...]
--- OUTSIDE RECORDS SUMMARY | 2019-12-24 19:41 | XMS REPORT ---
Author Author Trey ANDRADE Organization [facility] Address [address] [place] [address] Care Team Providers Care Food Beverage Supervisor Name Role Phone SURESH ANDRADE Unavailable PROBLEMS Type Condition ICD9-CM Code FDX72-SC Code Onset Dates Condition S tatus SNOMED Code Problem Nondependent 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 Ac tive 389186417 Problem Other chronic pain G89.29 Active 1 95424131 Problem Unspecified epilepsy without mention of intractable ep ilepsy G40.909 Active 98145124 Problem Hyperlipidemia, unspecified E78.5 Ac tive 59849668 Problem Hypertension I10 Active 9760305 3 Problem Esophageal reflux K21.9 Active 23 1462336 Problem Rheumatoid arthritis M06.9 Active 11454499 Problem Cough R05 Active 09433167 Problem Acquired hypothyroidism E03.9 Active 966970905 Problem Unspecified open-angle glaucoma, stage unspecified H40.10X0 Feb, Active 23994460 Problem Presbyopia H52.4 Active 98389439 Problem Insomnia G47.00 Active 945709980 Problem Arthralgia M25.50 Active 01619119 Problem Thyroid nodule E04.1 Active 14833 5005 Problem Anxiety disorder, unspecified F41.9 Active 344109473 Problem Chronic tension-type headache, intractable G44.221 Active 111417540 Problem Neuropathy G62.9 Active 436727240 Problem Goiter E04.9 Active 0234581 Problem Multinodular goiter E04.2 Active 854446875 Problem Carpal tunnel syndrome of left wrist G56.02 Active [id number] Problem Chronic obstructive pulmonary disease, unspecified COPD ty pe J44.9 Active 52637472 Problem BMI 40.0-44.9, adult Z68.41 Active 265489088 Problem Seasonal allergic rhinitis due to pollen J30.1 Active 08245574 Problem Depression F32.9 Active 08041503 Problem Essential hypertension I10 Active 27547975 Problem Depressive disorder F32.9 Active 85050560 Problem Right-sided low back pain without sciatica M54.5 Active 722599245 Problem Reactive airway disease with out complication, unspecified asthma severity, unspecified whether persistent J45.909 Active 505229576038 Problem Urge incontinence of urine N39.41 Act chen 80927926 Problem Abnormal laboratory test R89.9 Activ e 505549326 Problem COPD with exacerbation J44.1 Active 371795232 ALLERGIES No Information ENCOUNTERS Encounter Location Date Diagnosis [place] [address] [address] Sep, [place] [address] [address] Aug, Pelvic pain R10.2 ; Other specified bact erial agents as the cause of diseases classified elsewhere B96.89 and Acute vaginitis N76.0 [place] [address] [address] Apr, Bronchitis J40 [place] [address] [address] Apr, Acute gastritis without hemorrhage, unsp ecified gastritis type K29.00 [place] [address] [address] Mar, [facility] [address] [address] Feb, [place] [address] [address] Feb, Mass of right side of neck R22.1 and Mul tinodular goiter E04.2 [facility] [address] [facility] [id number] [address] [place] [address] Jan, Bronchitis J40 [facility] [address] [address] October, Acquired hypothyroidism E03.9 [place] [address] [address] October, Acute gastritis without hemorrhage, unsp ecified gastritis type K29.00 ; Epigastric pain R10.13 ; Essential hypertension I10 ; Screening for colon cancer Z12.11 and BMI 40.0-44.9, adult Z68.41 [place] [address] [address] October, [facility] [place] [address] [address] October, Chest pain R07.9 and Morbid obesity E66.01 [facility] [address] [address] Sep, Generalized abdominal pain R 10.84 ; Morbid obesity E66.01 ; Non-intractable vomiting with nausea, unspecified vomiting type R11.2 and Seasonal allergic rhinitis due to pollen J30.1 [facility] [address] [address] Jul, COPD with exacerbation J44.1 ; Viral upper respiratory tract infection J06.9 and Morbid obesity E66.01 [facility] [place] [address] [address] Jun, Viral upper respiratory trac t infection J06.9 [place] [address] [address] Apr, Abnormal laboratory test R89.9 [place] [address] [address] Apr, Abnormal laboratory test R89.9 [place] [address] [address] Apr, Abnormal laboratory test R89.9 [place] [address] [address] Apr, [place] [address] [address] Apr, [place] [address] [address] Apr, Nonintractable episodic headache, unspec ified headache type R51 ; Urge incontinence of urine N39.41 ; BMI 40.0-44.9, adult Z68.41 ; Myalgia M79.10 and Acute cystitis without hematuria N30.00 [facility] [address] [address] Mar, Nasal congestion R09.81 ; Low back pain M54.5 ; Reactive airway disease without complication, unspecified asthma severity, unspecified whether persistent J45.909 ; Other chronic pain G89.29 ; Acute cystitis with hematuria N30.01 and BMI 40.0-44.9, adult Z68.41 [place] [address] [address] Mar, Acute cystitis with hematuria N30.01 [facility] [address] [facility] [facility] [id number] [address] [place] [address] Mar, BMI 40.0-44.9, adult Z68.41 ; Acute cystitis with hematuria N30.01 ; Acute bilateral low back pain without sciatica M54.5 and Nausea R11.0 [place] [address] [address] Mar, Hypertension I10 ; Acquired hypothyroidi sm E03.9 ; Esophageal reflux K21.9 ; Chronic obstructive pulmonary disease, unspecified COPD type J44.9 and BMI 40.0-44.9, adult Z68.41 [place] [address] [address] Mar, Hypertension I10 [place] [address] [address] Nov, Hyperlipidemia, unspecified E78.5 [place] [address] [address] October, Chest pain, unspecified type R07.9 and A cquired hypothyroidism E03.9 [place] [address] [address] October, Chest pain, unspecified type R07.9 ; Fam demetrius history of coronary artery disease Z82.49 ; Carpal tunnel syndrome of left wrist G56.02 ; Hypertension I10 ; Esophageal reflux K21.9 ; Arthralgia M25.50 ; Acquired hypothyroidism E03.9 ; Cough R05 ; Nausea R11.0 ; Weight gain R63.5 and BMI 45.0-49.9, adult Z68.[address] [address] Jun, Acquired hypothyroidism E03.9 and Cough R05 [address] [address] May, [address] [address] Feb, Tarsal tunnel syndrome of both lower ext remities G57.53 and Neuropathy G62.[address] [address] Dec, Pleuritis R09.[address] [address] Nov, [address] [address] October, Arthralgia, unspecified joint M25.50 and Allergy, initial encounter T78.40XA [address] [address] October, [address] [address] October, Acute recurrent maxillary sinusitis J01. 01 and Arthralgia M25.[address] [address] Sep, Pharyngitis due to other organism J02.[address] [address] Aug, Acute nasopharyngitis J00 [address] [place] [address] Aug, Multinodular goiter E04.2 [place] [address] [address] Aug, Thyroid nodule E04.1 [place] [address] [address] 17 Jul, 2016 Tarsal tunnel syndrome of both lower ext remities G57.53 [place] [address] [address] Jun, Pneumonia due to infectious organism, un specified laterality, unspecified part of lung J18.9 [place] [address] [address] Jun, Bronchospasm with bronchitis, acute J20. 9 [place] [address] [address] May, Acute non-recurrent frontal sinusitis J0 1.10 [place] [address] [address] May, Flat foot [pes planus] (acquired), left foot M21.42 ; Flat foot [pes planus] (acquired), right foot M21.41 and Neuropathy G62.9 [place] [address] [address] Apr, Chronic tension-type headache, intractab le G44.221 ; Right lower quadrant abdominal pain R10.31 ; Cervicalgia M54.2 ; Acute gastritis without hemorrhage, unspecified gastritis type K29.00 and Hypertension I10 [place] [address] [address] Mar, Depression F32.9 and Anxiety disorder, u nspecified F41.9 [place] [address] [address] Feb, Depressive disorder F32.9 and Anxiety di sorder, unspecified F41.9 [place] [address] [address] Jan, Dysuria R30.0 ; Lower abdominal pain R10 .30 ; Acute bilateral low back pain without sciatica M54.5 ; Nausea and vomiting, unspecified intactability, vomiting of unspecified type R11.2 ; Pain in right foot M79.671 and Pain of left foot M79.672 [place] [address] [address] Dec, Urinary tract infection, site not specif ied N39.0 [place] [address] [address] Dec, [place] [address] [address] Nov, [place] [address] [address] Nov, Dysuria R30.0 [place] [address] [address] Nov, Dysuria R30.0 and Acute cystitis with he maturia N30.01 [place] [address] [address] October, Nausea R11.0 [place] [address] [address] October, Thyroid nodule E04.1 ; Carpal tunnel syn drome, left upper limb G56.02 ; Carpal tunnel syndrome, right upper limb G56.01 and Constipation, unspecified constipation type K59.00 [place] [address] [address] October, [place] [address] [address] October, Thyroid nodule E04.1 [place] [address] [address] October, Cold thyroid nodule E04.1 [place] [address] [address] October, [place] [address] [address] Sep, Thyroid nodule E04.1 [place] [address] [address] Sep, Thyroid nodule E04.1 [place] [address] [address] Sep, Thyroid nodule E04.1 ; Hypertension I10 ; Esophageal reflux K21.9 and Hyperlipidemia, unspecified E78.5 [place] [address] [address] Aug, Other chronic pain G89.29 ; Sinusitis J3 2.9 and Hypertension I10 [place] [address] [address] 29 Jul, [address] [address] 15 Jul, 2015 [place] [address] [address] 10 Jul, 2015 Insomnia G47.00 and Arthralgia M25.[address] [address] 10 Jul, 2015 Depressive disorder F32.9 and Anxiety di sorder, unspecified F41.[address] [address] May, Right-sided low back pain without sciati ca M54.5 and Depression F32.[address] [address] Apr, Hematuria R31.[address] [address] Mar, Other chronic pain G89.[address] [address] Mar, Other chronic pain G89.29 [facility] [address] [place] [id number] [place] [address] Feb, [facility] [address] [address] Feb, Other chronic pain 338.29 ; Dysuria 788. 1 ; UTI (urinary tract infection) 599.0 ; Insomnia 780.52 ; Hot flashes 627.2 and Hypertension 401.9 [facility] [address] [address] Feb, Dysuria 788.1 [facility] [address] [address] Feb, [facility] [address] [address] Jan, [facility] [address] [address] Jan, [facility] [address] [address] Jan, Fibromyalgia 729.1 ; Hypertension 401.9 ; Dysthymia 300.4 and Hot flashes 627.2 [facility] [address] [place] [address] [place] [address] Dec, [facility] [address] [address] Dec, [facility] [address] [address] Dec, [facility] [address] [address] Nov, Other chronic pain 338.29 [facility] [address] [address] October, [facility] [address] [address] October, [facility] [address] [address] Sep, [facility] [address] [id number] [place] [address] 13 Sep, 2014 [facility] [address] [id number] [place] [address] Aug, [facility] [address] [id number] [place] [address] Aug, [facility] [address] [id number] [place] [address] Aug, [facility] [address] [id number] [place] [address] Aug, [facility] [address] [id number] [place] [address] Aug, [facility] [address] [id number] [place] [address] Aug, [facility] [address] [id number] [place] [address] Aug, [facility] [address] [id number] [place] [address] Aug, [facility] [address] [id number] [place] [address] Aug, [facility] [address] [id number] [place] [address] Aug, [facility] [address] [id number] [place] [address] Aug, [facility] [address] [id number] [place] [address] Aug, [facility] [address] [id number] [place] [address] Aug, [facility] [address] [id number] [place] [address] Aug, [facility] [address] [id number] [place] [address] Jul, [facility] [address] [id number] [place] [address] Jul, [facility] [address] [id number] [place] [address] Jul, [facility] [address] [id number] [place] [address] Jul, [facility] [address] [id number] [place] [address] Jul, [facility] [address] [id number] [place] [address] Jul, [facility] [address] [id number] [place] [address] Jun, [facility] [address] [id number] [place] [address] Jun, [facility] [address] [id number] [place] [address] Jun, [facility] [address] [id number] [place] [address] Jun, [facility] [address] [id number] [place] [address] May, [facility] [address] [id number] [place] [address] May, [facility] [address] [id number] [place] [address] May, [facility] [address] [id number] [place] [address] May, [facility] [address] [id number] [place] [address] May, [facility] [address] [id number] [place] [address] May, [facility] [address] [id number] [place] [address] May, [facility] [address] [id number] [place] [address] May, [facility] [address] [id number] [place] [address] May, [facility] [address] [id number] [place] [address] May, [facility] [address] [id number] [place] [address] Apr, [facility] [address] [id number] [place] [address] Apr, [facility] [address] [id number] [place] [address] Apr, [facility] [address] [id number] [place] [address] Apr, [facility] [address] [id number] [place] [address] Apr, [facility] [address] [id number] [place] [address] Apr, [facility] [address] [id number] [place] [address] Apr, [facility] [address] [id number] [place] [address] Apr, [facility] [address] [id number] [place] [address] Apr, [facility] [address] [id number] [place] [address] Mar, [facility] [address] [id number] [place] [address] Mar, [facility] [address] [id number] [place] [address] Mar, [facility] [address] [place] [id number] [place] [address] Mar, [facility] [address] [id number] [place] [address] Mar, [facility] [address] [id number] [place] [address] Mar, [facility] [address] [facility] [id number] [place] [address] 08 Mar, 2013 [facility] [address] [id number] [place] [address] 08 Mar, 2013 [facility] [address] [id number] [place] [address] 30 Sep, 2013 [facility] [address] [id number] [place] [address] 30 Sep, 2013 [facility] [address] [facility] [id number] [place] [address] 24 Sep, 2013 [facility] [address] [id number] [place] [address] 24 Sep, 2013 [facility] [address] [id number] [place] [address] 22 Sep, 2013 [facility] [address] [id number] [place] [address] 22 Sep, 2013 [facility] [address] [id number] [place] [address] 10 Sep, 2013 [facility] [address] [id number] [place] [address] 10 Sep, 2013 [facility] [address] [id number] [place] [address] 03 Sep, 2013 [facility] [address] [id number] [place] [address] 03 Sep, 2013 [facility] [address] [id number] [place] [address] 03 Sep, 2013 [facility] [address] [id number] [place] [address] 03 Sep, 2013 [facility] [address] [id number] [place] [address] 03 Sep, 2013 [facility] [address] [id number] [place] [address] 03 Sep, 2013 [facility] [address] [id number] [facility] [place] [address] Jan, 2013 [facility] [address] [id number] [place] [address] Jan, [facility] [address] [facility] [id number] [place] [address] Dec, [facility] [address] [facility] [id number] [place] [address] Dec, [facility] [address] [facility] [id number] [place] [address] Dec, [facility] [address] [facility] [id number] [place] [address] Dec, [facility] [address] [facility] [id number] [place] [id number] Dec, [facility] [address] [id number] [place] [address] Dec, [facility] [address] [id number] [place] [address] Dec, [facility] [address] [facility] [id number] [place] [address] Dec, [facility] [address] [id number] [place] [address] Dec, [facility] [address] [id number] [place] [address] Dec, 2013 [facility] [address] [id number] [place] [address] Dec, 2013 [facility] [address] [facility] [id number] [place] [address] Dec, 2013 [facility] [address] [id number] [place] [address] Dec, 2013 [facility] [address] [id number] [place] [address] Dec, 2013 [facility] [address] [id number] [place] [address] Dec, 2013 [facility] [address] [id number] [facility] [place] [address] Dec, [facility] [address] [facility] [id number] [place] [address] Dec, [facility] [address] [facility] [id number] [place] [address] Dec, [facility] [address] [id number] [place] [address] Dec, [facility] [address] [facility] [id number] [place] [address] Nov, [facility] [address] [facility] [id number] [place] [address] Nov, [facility] [address] [id number] [place] [address] Nov, [facility] [address] [id number] [place] [address] Nov, [facility] [address] [id number] [place] [address] Nov, [facility] [address] [id number] [place] [address] Nov, [facility] [address] [id number] [place] [address] Nov, [facility] [address] [id number] [place] [address] Nov, [facility] [address] [id number] [place] [address] Nov, [facility] [address] [facility] [id number] [place] [address] October, [facility] [address] [id number] [place] [address] October, [facility] [address] [id number] [place] [address] October, [facility] [address] [id number] [place] [address] October, [facility] [address] [id number] [place] [address] October, [facility] [address] [id number] [place] [address] October, [facility] [address] [id number] [place] [address] October, [facility] [address] [id number] [place] [address] October, [facility] [address] [id number] [place] [address] Sep, [facility] [address] [id number] [place] [address] Sep, [facility] [address] [id number] [place] [address] Sep, [facility] [address] [id number] [place] [address] Sep, [facility] [address] [id number] [place] [address] Sep, [facility] [address] [id number] [place] [address] Sep, [facility] [address] [id number] [place] [address] Sep, [facility] [address] [id number] [place] [address] Aug, [facility] [address] [id number] [place] [address] Aug, [facility] [address] [id number] [place] [address] Aug, [facility] [address] [id number] [place] [address] Aug, [facility] [address] [id number] [place] [address] Aug, [facility] [address] [id number] [place] [address] Aug, [facility] [address] [facility] [id number] [place] [address] Jul, [facility] [address] [id number] [place] [address] Jul, [facility] [address] [id number] [place] [address] Jul, [facility] [address] [id number] [place] [address] Jul, [facility] [address] [id number] [place] [address] Jul, [facility] [address] [id number] [place] [address] Jul, [facility] [address] [id number] [place] [address] Jun, [facility] [address] [id number] [place] [address] Jun, [facility] [address] [id number] [place] [address] Jun, [facility] [address] [id number] [place] [address] Jun, [facility] [address] [id number] [place] [address] Jun, [facility] [address] [id number] [place] [address] Jun, [facility] [address] [id number] [place] [address] Jun, [facility] [address] [id number] [place] [address] Jun, [facility] [address] [id number] [place] [address] Jun, [facility] [address] [id number] [place] [address] Jun, [facility] [address] [id number] [place] [address] 14 Jun, 2013 [facility] [address] [id number] [place] [address] 14 Jun, 2013 [facility] [address] [id number] [place] [address] 14 Jun, 2013 [facility] [address] [id number] [place] [address] 30 May, 2013 [facility] [address] [id number] [place] [address] 30 May, 2013 [facility] [address] [id number] [place] [address] 30 May, 2013 [facility] [address] [id number] [place] [address] 30 May, 2013 [facility] [address] [id number] [place] [address] 26 May, 2012 [facility] [address] [id number] [place] [address] 14 May, 2013 [facility] [address] [id number] [place] [address] 14 May, 2013 [facility] [address] [id number] [place] [address] 12 May, 2013 [facility] [address] [id number] [place] [address] 12 May, 2013 [facility] [address] [id number] [place] [address] 11 May, 2013 [facility] [address] [id number] [place] [address] 11 May, 2013 [facility] [address] [id number] [place] [address] 10 May, 2013 [facility] [address] [id number] [place] [address] 10 May, 2013 [facility] [address] [id number] [place] [address] 09 May, 2012 [facility] [address] [id number] [place] [address] 09 May, 2012 [facility] [address] [id number] [place] [address] 08 May, 2012 [facility] [address] [id number] [place] [address] May, 2012 [facility] [address] [id number] [place] [address] May, 2012 [facility] [address] [id number] [place] [address] May, 2012 [facility] [address] [id number] [place] [address] May, 2012 [facility] [address] [id number] [place] [address] May, 2012 [facility] [address] [id number] [place] [address] Apr, [facility] [address] [id number] [place] [address] Apr, [facility] [address] [id number] [place] [address] Apr, [facility] [address] [id number] [place] [address] Apr, [facility] [address] [id number] [place] [address] 08 Mar, 2013 [facility] [address] [id number] [place] [address] 23 Sep, 2012 [facility] [address] [id number] [place] [address] 16 Sep, 2012 [facility] [address] [id number] [place] [address] 13 Sep, 2012 [facility] [address] [id number] [place] [address] 10 Sep, 2012 [facility] [address] [id number] [place] [address] 09 Feb, 2012 [facility] [id number] [place] [address] Feb, [facility] [address] [id number] [place] [address] Jan, [facility] [address] [id number] [place] [address] Jan, [facility] [address] [id number] [place] [address] Jan, [facility] [id number] [place] [address] Dec, [facility] [address] [id number] [place] [address] Dec, [facility] [address] [id number] [place] [address] Dec, [facility] [address] [id number] [place] [address] Dec, [facility] [address] [id number] [place] [address] Dec, [facility] [address] [id number] [place] [address] Nov, [facility] [address] [id number] [place] [address] Nov, [facility] [address] [id number] [place] [address] Nov, [facility] [address] [id number] [place] [address] Nov, [facility] [address] [id number] [place] [address] Nov, [facility] [address] [id number] [place] [address] Nov, [facility] [address] [id number] [place] [address] Nov, [facility] [address] [id number] [place] [address] Nov, [facility] [address] [id number] [place] [address] Nov, [facility] [address] [id number] [place] [address] Nov, [facility] [address] [id number] [place] [address] October, [facility] [address] [id number] [place] [address] October, [facility] [address] [id number] [place] [address] Sep, [facility] [address] [id number] [place] [address] Sep, [facility] [address] [id number] [place] [address] Sep, [facility] [address] [id number] [place] [address] Sep, [facility] [address] [id number] [place] [address] Sep, [facility] [address] [id number] [place] [address] Aug, [facility] [address] [id number] [place] [address] Aug, [facility] [address] [id number] [place] [address] Jul, [facility] [address] [id number] [place] [address] Jul, [facility] [address] [id number] [place] [address] Jun, [facility] [address] [id number] [place] [address] Jun, [facility] [address] [id number] [place] [address] 05 May, 2012 [facility] [address] [id number] [place] [address] May, [facility] [address] [id number] [place] [address] May, [facility] [address] [id number] [place] [address] May, [facility] [address] [id number] [place] [address] Apr, [facility] [address] [id number] [place] [address] Apr, [facility] [address] [id number] [place] [address] Apr, [facility] [address] [id number] [place] [address] Apr, [facility] [address] [id number] [place] [address] Apr, [facility] [address] [id number] [place] [address] Apr, [facility] [address] [id number] [place] [address] Apr, [facility] [address] [id number] [place] [address] Apr, [facility] [address] [id number] [place] [address] Apr, [facility] [address] [id number] [place] [address] 15 Mar, 2012 [facility] [address] [id number] [place] [address] 15 Mar, 2012 [facility] [address] [id number] [place] [address] 05 Feb, 2012 [facility] [address] [id number] [place] [address] Jan, [facility] [address] [id number] [place] [address] Jan, [facility] [address] [id number] [place] [address] Dec, [facility] [address] [id number] [place] [address] Nov, [facility] [address] [id number] [place] [address] Nov, [facility] [address] [id number] [place] [address] October, [facility] [address] [id number] [place] [address] October, [facility] [address] [id number] [place] [address] Sep, [facility] [address] [id number] [place] [address] Sep, [facility] [address] [id number] [place] [address] May, [facility] [address] [id number] [place] [address] Apr, [facility] [address] [id number] [place] [address] Apr, [facility] [address] [id number] [place] [address] Apr, [facility] [address] [id number] [place] [address] 15 Apr, 2011 [facility] [address] [id number] [place] [address] 15 Apr, 2011 [facility] [id number] [place] [address] 10 Apr, 2011 [facility] [address] [id number] [place] [address] 10 Apr, 2011 [facility] [address] [id number] [place] [address] Apr, [facility] [address] [id number] [place] [address] Mar, [facility] [address] [id number] [place] [address] Mar, [facility] [address] [id number] [place] [address] Mar, [facility] [address] [id number] [place] [address] Mar, [facility] [address] [id number] [place] [address] Mar, [facility] [address] [id number] [place] [address] Mar, IMMUNIZATIONS No Known Immunizations SOCIAL HISTORY [...] Hospitalization History Mental floor at [facility]
--- OUTSIDE RECORDS SUMMARY | 2019-12-24 19:41 | XMS REPORT ---
Author Author Trey ANDRADE Organization [facility] Address [address] [place] [address] Care Team Providers Care Pool Hall Inspector Name Role Phone SURESH ANDRADE Unavailable PROBLEMS Type Condition ICD9-CM Code [id number] Code Onset Dates Condition S tatus SNOMED Code Problem Nondependent 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 Ac tive 073058582 Problem Other chronic pain G89.29 Active 1 53622649 Problem Unspecified epilepsy without mention of intractable ep ilepsy G40.909 Active 36414065 Problem Hyperlipidemia, unspecified E78.5 Ac tive 99948210 Problem Hypertension I10 Active 9384959 3 Problem Esophageal reflux K21.9 Active 23 9589633 Problem Rheumatoid arthritis M06.9 Active 73559503 Problem Cough R05 Active 59960212 Problem Acquired hypothyroidism E03.9 Active 220041142 Problem Unspecified open-angle glaucoma, stage unspecified H40.10X0 Feb, Active 09175969 Problem Presbyopia H52.4 Active 49719480 Problem Insomnia G47.00 Active 771332536 Problem Arthralgia M25.50 Active 07153152 Problem Thyroid nodule E04.1 Active 13918 5005 Problem Anxiety disorder, unspecified F41.9 Active 764633499 Problem Chronic tension-type headache, intractable G44.221 Active 697362523 Problem Neuropathy G62.9 Active 043828033 Problem Goiter E04.9 Active 9986069 Problem Multinodular goiter E04.2 Active 837249019 Problem Carpal tunnel syndrome of left wrist G56.02 Active 342277888705310 Problem Chronic obstructive pulmonary disease, unspecified COPD ty pe J44.9 Active 82559097 Problem BMI 40.0-44.9, adult Z68.41 Active 158624400 Problem Seasonal allergic rhinitis due to pollen J30.1 Active 30348334 Problem Depression F32.9 Active 16655425 Problem Essential hypertension I10 Active 03898390 Problem Depressive disorder F32.9 Active 93117573 Problem Right-sided low back pain without sciatica M54.5 Active 626384900 Problem Reactive airway disease with out complication, unspecified asthma severity, unspecified whether persistent J45.909 Active 886497791251 Problem Urge incontinence of urine N39.41 Act chen 04427584 Problem Abnormal laboratory test R89.9 Activ e 689840463 Problem COPD with exacerbation J44.1 Active 824509753 ALLERGIES No Information ENCOUNTERS Encounter Location Date Diagnosis [place] [address] [address] Sep, [place] [address] [address] Aug, Pelvic pain R10.2 ; Other specified bact erial agents as the cause of diseases classified elsewhere B96.89 and Acute vaginitis N76.0 [place] [address] [address] Apr, Bronchitis J40 [place] [address] [address] Apr, Acute gastritis without hemorrhage, unsp ecified gastritis type K29.00 [place] [address] [address] Mar, [facility] [address] [address] Feb, [place] [address] [address] Feb, Mass of right side of neck R22.1 and Mul tinodular goiter E04.2 [facility] [address] [facility] [id number] [address] [place] [address] Jan, Bronchitis J40 [facility] [address] [address] October, Acquired hypothyroidism E03.9 [place] [address] [address] October, Acute gastritis without hemorrhage, unsp ecified gastritis type K29.00 ; Epigastric pain R10.13 ; Essential hypertension I10 ; Screening for colon cancer Z12.11 and BMI 40.0-44.9, adult Z68.41 [place] [address] [address] October, [facility] [place] [address] [address] October, Chest pain R07.9 and Morbid obesity E66.01 [facility] [address] [address] Sep, Generalized abdominal pain R 10.84 ; Morbid obesity E66.01 ; Non-intractable vomiting with nausea, unspecified vomiting type R11.2 and Seasonal allergic rhinitis due to pollen J30.1 [facility] [address] [address] Jul, COPD with exacerbation J44.1 ; Viral upper respiratory tract infection J06.9 and Morbid obesity E66.01 [facility] [place] [address] [address] Jun, Viral upper respiratory trac t infection J06.9 [place] [address] [address] Apr, Abnormal laboratory test R89.9 [place] [address] [address] Apr, Abnormal laboratory test R89.9 [place] [address] [address] Apr, Abnormal laboratory test R89.9 [place] [address] [address] Apr, [place] [address] [address] Apr, [place] [address] [address] Apr, Nonintractable episodic headache, unspec ified headache type R51 ; Urge incontinence of urine N39.41 ; BMI 40.0-44.9, adult Z68.41 ; Myalgia M79.10 and Acute cystitis without hematuria N30.00 [facility] [address] [address] Mar, Nasal congestion R09.81 ; Low back pain M54.5 ; Reactive airway disease without complication, unspecified asthma severity, unspecified whether persistent J45.909 ; Other chronic pain G89.29 ; Acute cystitis with hematuria N30.01 and BMI 40.0-44.9, adult Z68.41 [place] [address] [address] Mar, Acute cystitis with hematuria N30.01 [facility] [address] [facility] [id number] [address] [place] [address] Mar, BMI 40.0-44.9, adult Z68.41 ; Acute cystitis with hematuria N30.01 ; Acute bilateral low back pain without sciatica M54.5 and Nausea R11.0 [place] [address] [address] Mar, Hypertension I10 ; Acquired hypothyroidi sm E03.9 ; Esophageal reflux K21.9 ; Chronic obstructive pulmonary disease, unspecified COPD type J44.9 and BMI 40.0-44.9, adult Z68.41 [place] [address] [address] Mar, Hypertension I10 [place] [address] [address] Nov, Hyperlipidemia, unspecified E78.5 [place] [address] [address] October, Chest pain, unspecified type R07.9 and A cquired hypothyroidism E03.9 [place] [address] [address] October, Chest pain, unspecified type R07.9 ; Fam demetrius history of coronary artery disease Z82.49 ; Carpal tunnel syndrome of left wrist G56.02 ; Hypertension I10 ; Esophageal reflux K21.9 ; Arthralgia M25.50 ; Acquired hypothyroidism E03.9 ; Cough R05 ; Nausea R11.0 ; Weight gain R63.5 and BMI 45.0-49.9, adult Z68.[address] [address] Jun, Acquired hypothyroidism E03.9 and Cough R05 [address] [address] May, [address] [address] Feb, Tarsal tunnel syndrome of both lower ext remities G57.53 and Neuropathy G62.[address] [address] Dec, Pleuritis R09.[address] [address] Nov, [address] [address] October, Arthralgia, unspecified joint M25.50 and Allergy, initial encounter T78.40XA [address] [address] October, [address] [address] October, Acute recurrent maxillary sinusitis J01. 01 and Arthralgia M25.[address] [address] Sep, Pharyngitis due to other organism J02.[address] [address] Aug, Acute nasopharyngitis J00 [address] [place] [address] Aug, Multinodular goiter E04.2 [place] [address] [address] Aug, Thyroid nodule E04.1 [place] [address] [address] 17 Jul, 2016 Tarsal tunnel syndrome of both lower ext remities G57.53 [place] [address] [address] Jun, Pneumonia due to infectious organism, un specified laterality, unspecified part of lung J18.9 [place] [address] [address] Jun, Bronchospasm with bronchitis, acute J20. 9 [place] [address] [address] May, Acute non-recurrent frontal sinusitis J0 1.10 [place] [address] [address] May, Flat foot [pes planus] (acquired), left foot M21.42 ; Flat foot [pes planus] (acquired), right foot M21.41 and Neuropathy G62.9 [place] [address] [address] Apr, Chronic tension-type headache, intractab le G44.221 ; Right lower quadrant abdominal pain R10.31 ; Cervicalgia M54.2 ; Acute gastritis without hemorrhage, unspecified gastritis type K29.00 and Hypertension I10 [place] [address] [address] Mar, Depression F32.9 and Anxiety disorder, u nspecified F41.9 [place] [address] [address] Feb, Depressive disorder F32.9 and Anxiety di sorder, unspecified F41.9 [place] [address] [address] Jan, Dysuria R30.0 ; Lower abdominal pain R10 .30 ; Acute bilateral low back pain without sciatica M54.5 ; Nausea and vomiting, unspecified intactability, vomiting of unspecified type R11.2 ; Pain in right foot M79.671 and Pain of left foot M79.672 [place] [address] [address] Dec, Urinary tract infection, site not specif ied N39.0 [place] [address] [address] Dec, [place] [address] [address] Nov, [place] [address] [address] Nov, Dysuria R30.0 [place] [address] [address] Nov, Dysuria R30.0 and Acute cystitis with he maturia N30.01 [place] [address] [address] October, Nausea R11.0 [place] [address] [address] October, Thyroid nodule E04.1 ; Carpal tunnel syn drome, left upper limb G56.02 ; Carpal tunnel syndrome, right upper limb G56.01 and Constipation, unspecified constipation type K59.00 [place] [address] [address] October, [place] [address] [address] October, Thyroid nodule E04.1 [place] [address] [address] October, Cold thyroid nodule E04.1 [place] [address] [address] October, [place] [address] [address] Sep, Thyroid nodule E04.1 [place] [address] [address] Sep, Thyroid nodule E04.1 [place] [address] [address] Sep, Thyroid nodule E04.1 ; Hypertension I10 ; Esophageal reflux K21.9 and Hyperlipidemia, unspecified E78.5 [place] [address] [address] Aug, Other chronic pain G89.29 ; Sinusitis J3 2.9 and Hypertension I10 [place] [address] [address] 29 Jul, [address] [address] 15 Jul, 2015 [place] [address] [address] 10 Jul, 2015 Insomnia G47.00 and Arthralgia M25.[address] [address] 10 Jul, 2015 Depressive disorder F32.9 and Anxiety di sorder, unspecified F41.[address] [address] May, Right-sided low back pain without sciati ca M54.5 and Depression F32.[address] [address] Apr, Hematuria R31.[address] [address] Mar, Other chronic pain G89.[address] [address] Mar, Other chronic pain G89.29 [facility] [address] [place] [id number] [place] [address] Feb, [facility] [address] [address] Feb, Other chronic pain 338.29 ; Dysuria 788. 1 ; UTI (urinary tract infection) 599.0 ; Insomnia 780.52 ; Hot flashes 627.2 and Hypertension 401.9 [facility] [address] [address] Feb, Dysuria 788.1 [facility] [address] [address] Feb, [facility] [address] [address] Jan, [facility] [address] [address] Jan, [facility] [address] [address] Jan, Fibromyalgia 729.1 ; Hypertension 401.9 ; Dysthymia 300.4 and Hot flashes 627.2 [facility] [address] [place] [id number] [place] [address] Dec, [facility] [address] [address] Dec, [facility] [address] [address] Dec, [facility] [address] [address] Nov, Other chronic pain 338.29 [facility] [address] [address] October, [facility] [address] [address] October, [facility] [address] [address] Sep, [facility] [address] [id number] [place] [address] 13 Sep, 2014 [facility] [address] [id number] [place] [address] Aug, [facility] [address] [id number] [place] [address] Aug, [facility] [address] [id number] [place] [address] Aug, [facility] [address] [id number] [place] [address] Aug, [facility] [address] [id number] [place] [address] Aug, [facility] [address] [id number] [place] [address] Aug, [facility] [address] [id number] [place] [address] Aug, [facility] [address] [id number] [place] [address] Aug, [facility] [address] [id number] [place] [address] Aug, [facility] [address] [id number] [place] [address] Aug, [facility] [address] [id number] [place] [address] Aug, [facility] [address] [id number] [place] [address] Aug, [facility] [address] [id number] [place] [address] Aug, [facility] [address] [id number] [place] [address] Aug, [facility] [address] [id number] [place] [address] Jul, [facility] [address] [id number] [place] [address] Jul, [facility] [address] [id number] [place] [address] Jul, [facility] [address] [id number] [place] [address] Jul, [facility] [address] [id number] [place] [address] Jul, [facility] [address] [id number] [place] [address] Jul, [facility] [address] [id number] [place] [address] Jun, [facility] [address] [id number] [place] [address] Jun, [facility] [address] [id number] [place] [address] Jun, [facility] [address] [id number] [place] [address] Jun, [facility] [address] [id number] [place] [address] May, [facility] [address] [id number] [place] [address] May, [facility] [address] [id number] [place] [address] May, [facility] [address] [id number] [place] [address] May, [facility] [address] [id number] [place] [address] May, [facility] [address] [id number] [place] [address] May, [facility] [address] [id number] [place] [address] May, [facility] [address] [id number] [place] [address] May, [facility] [address] [id number] [place] [address] May, [facility] [address] [id number] [place] [address] May, [facility] [address] [id number] [place] [address] Apr, [facility] [address] [id number] [place] [address] Apr, [facility] [address] [id number] [place] [address] Apr, [facility] [address] [id number] [place] [address] Apr, [facility] [address] [id number] [place] [address] Apr, [facility] [address] [id number] [place] [address] Apr, [facility] [address] [id number] [place] [address] Apr, [facility] [address] [id number] [place] [address] Apr, [facility] [address] [id number] [place] [address] Apr, [facility] [address] [id number] [place] [address] Mar, [facility] [address] [id number] [place] [address] Mar, [facility] [address] [id number] [place] [address] Mar, [facility] [address] [place] [id number] [place] [address] Mar, [facility] [address] [id number] [place] [address] Mar, [facility] [address] [id number] [place] [address] Mar, [facility] [address] [facility] [id number] [place] [address] 08 Mar, 2013 [facility] [address] [id number] [place] [address] 08 Mar, 2013 [facility] [address] [id number] [place] [address] 30 Sep, 2013 [facility] [address] [id number] [place] [address] 30 Sep, 2013 [facility] [address] [facility] [id number] [place] [address] 24 Sep, 2013 [facility] [address] [id number] [place] [address] 24 Sep, 2013 [facility] [address] [id number] [place] [address] 22 Sep, 2013 [facility] [address] [id number] [place] [address] 22 Sep, 2013 [facility] [address] [id number] [place] [address] 10 Sep, 2013 [facility] [address] [id number] [place] [address] 10 Sep, 2013 [facility] [address] [id number] [place] [address] 03 Sep, 2013 [facility] [address] [id number] [place] [address] 03 Sep, 2013 [facility] [address] [id number] [place] [address] 03 Sep, 2013 [facility] [address] [id number] [place] [address] 03 Sep, 2013 [facility] [address] [id number] [place] [address] 03 Sep, 2013 [facility] [address] [id number] [place] [address] 03 Sep, 2013 [facility] [address] [id number] [facility] [place] [address] Jan, 2013 [facility] [address] [id number] [place] [address] Jan, [facility] [address] [facility] [id number] [place] [address] Dec, [facility] [address] [facility] [id number] [place] [address] Dec, [facility] [address] [facility] [id number] [place] [address] Dec, [facility] [address] [facility] [id number] [place] [address] Dec, [facility] [address] [facility] [id number] [place] [id number] Dec, [facility] [address] [id number] [place] [address] Dec, [facility] [address] [id number] [place] [address] Dec, [facility] [address] [facility] [id number] [place] [address] Dec, [facility] [address] [id number] [place] [address] Dec, [facility] [address] [id number] [place] [address] Dec, 2013 [facility] [address] [id number] [place] [address] Dec, 2013 [facility] [address] [facility] [id number] [place] [address] Dec, 2013 [facility] [address] [id number] [place] [address] Dec, 2013 [facility] [address] [id number] [place] [address] Dec, 2013 [facility] [address] [id number] [place] [address] Dec, 2013 [facility] [address] [id number] [facility] [place] [address] Dec, [facility] [address] [facility] [id number] [place] [address] Dec, [facility] [address] [facility] [id number] [place] [address] Dec, [facility] [address] [id number] [place] [address] Dec, [facility] [address] [facility] [id number] [place] [address] Nov, [facility] [address] [facility] [id number] [place] [address] Nov, [facility] [address] [id number] [place] [address] Nov, [facility] [address] [id number] [place] [address] Nov, [facility] [address] [id number] [place] [address] Nov, [facility] [address] [id number] [place] [address] Nov, [facility] [address] [id number] [place] [address] Nov, [facility] [address] [id number] [place] [address] Nov, [facility] [address] [id number] [place] [address] Nov, [facility] [address] [facility] [id number] [place] [address] October, [facility] [address] [id number] [place] [address] October, [facility] [address] [id number] [place] [address] October, [facility] [address] [id number] [place] [address] October, [facility] [address] [id number] [place] [address] October, [facility] [address] [id number] [place] [address] October, [facility] [address] [id number] [place] [address] October, [facility] [address] [id number] [place] [address] October, [facility] [address] [id number] [place] [address] Sep, [facility] [address] [id number] [place] [address] Sep, [facility] [address] [id number] [place] [address] Sep, [facility] [address] [address] [id number] [place] [address] Sep, [facility] [address] [id number] [place] [address] Sep, [facility] [address] [id number] [place] [address] Sep, [facility] [address] [id number] [place] [address] Sep, [facility] [address] [id number] [place] [address] Aug, [facility] [address] [id number] [place] [address] Aug, [facility] [address] [id number] [place] [address] Aug, [facility] [address] [id number] [place] [address] Aug, [facility] [address] [id number] [place] [address] Aug, [facility] [address] [id number] [place] [address] Aug, [facility] [address] [facility] [id number] [place] [address] Jul, [facility] [address] [id number] [place] [address] Jul, [facility] [address] [id number] [place] [address] Jul, [facility] [address] [id number] [place] [address] Jul, [facility] [address] [id number] [place] [address] Jul, [facility] [address] [id number] [place] [address] Jul, [facility] [address] [id number] [place] [address] Jun, [facility] [address] [id number] [place] [address] Jun, [facility] [address] [id number] [place] [address] Jun, [facility] [address] [id number] [place] [address] Jun, [facility] [address] [id number] [place] [address] Jun, [facility] [address] [id number] [place] [address] Jun, [facility] [address] [id number] [place] [address] Jun, [facility] [address] [id number] [place] [address] Jun, [facility] [address] [id number] [place] [address] Jun, [facility] [address] [id number] [place] [address] Jun, [facility] [address] [id number] [place] [address] 14 Jun, 2013 [facility] [address] [id number] [place] [address] 14 Jun, 2013 [facility] [address] [id number] [place] [address] 14 Jun, 2013 [facility] [address] [id number] [place] [address] 30 May, 2013 [facility] [address] [id number] [place] [address] 30 May, 2013 [facility] [address] [id number] [place] [address] 30 May, 2013 [facility] [address] [id number] [place] [address] 30 May, 2013 [facility] [address] [id number] [place] [address] 26 May, 2012 [facility] [address] [id number] [place] [address] 14 May, 2013 [facility] [address] [id number] [place] [address] 14 May, 2013 [facility] [address] [id number] [place] [address] 12 May, 2013 [facility] [address] [id number] [place] [address] 12 May, 2013 [facility] [address] [id number] [place] [address] 11 May, 2013 [facility] [address] [id number] [place] [address] 11 May, 2013 [facility] [address] [id number] [place] [address] 10 May, 2013 [facility] [address] [id number] [place] [address] 10 May, 2013 [facility] [address] [id number] [place] [address] 09 May, 2012 [facility] [address] [id number] [place] [address] 09 May, 2012 [facility] [address] [id number] [place] [address] 08 May, 2012 [facility] [address] [id number] [place] [address] May, 2012 [facility] [address] [id number] [place] [address] May, 2012 [facility] [address] [id number] [place] [address] May, 2012 [facility] [address] [id number] [place] [address] May, 2012 [facility] [address] [id number] [place] [address] May, 2012 [facility] [address] [id number] [place] [address] Apr, [facility] [address] [id number] [place] [address] Apr, [facility] [address] [id number] [place] [address] Apr, [facility] [address] [id number] [place] [address] Apr, [facility] [address] [id number] [place] [address] 08 Mar, 2013 [facility] [address] [id number] [place] [address] 23 Sep, 2012 [facility] [address] [id number] [place] [address] 16 Sep, 2012 [facility] [address] [id number] [place] [address] 13 Sep, 2012 [facility] [address] [id number] [place] [address] 10 Sep, 2012 [facility] [address] [id number] [place] [address] 09 Feb, 2012 [facility] [address] [id number] [place] [address] Feb, [facility] [address] [id number] [place] [address] Jan, [facility] [address] [id number] [place] [address] Jan, [facility] [address] [id number] [place] [address] Jan, [facility] [address] [id number] [place] [address] Dec, [facility] [address] [id number] [place] [address] Dec, [facility] [address] [id number] [place] [address] Dec, [facility] [address] [id number] [place] [address] Dec, [facility] [address] [id number] [place] [address] Dec, [facility] [address] [id number] [place] [address] Nov, [facility] [address] [id number] [place] [address] Nov, [facility] [address] [id number] [place] [address] Nov, [facility] [address] [id number] [place] [address] Nov, [facility] [address] [id number] [place] [address] Nov, [facility] [address] [id number] [place] [address] Nov, [facility] [address] [id number] [place] [address] Nov, [facility] [address] [id number] [place] [address] Nov, [facility] [address] [id number] [place] [address] Nov, [facility] [address] [id number] [place] [address] Nov, [facility] [address] [id number] [place] [address] October, [facility] [address] [id number] [place] [address] October, [facility] [address] [id number] [place] [address] Sep, [facility] [address] [id number] [place] [address] Sep, [facility] [address] [id number] [place] [address] Sep, [facility] [address] [id number] [place] [address] Sep, [facility] [address] [id number] [place] [address] Sep, [facility] [address] [id number] [place] [address] Aug, [facility] [address] [id number] [place] [address] Aug, [facility] [address] [id number] [place] [address] Jul, [facility] [address] [id number] [place] [address] Jul, [facility] [address] [id number] [place] [address] Jun, [facility] [address] [id number] [place] [address] Jun, [facility] [address] [id number] [place] [address] 05 May, 2012 [facility] [address] [id number] [place] [address] May, [facility] [address] [id number] [place] [address] May, [facility] [address] [id number] [place] [address] May, [facility] [address] [id number] [place] [address] Apr, [facility] [address] [id number] [place] [address] Apr, [facility] [address] [id number] [place] [address] Apr, [facility] [address] [id number] [place] [address] Apr, [facility] [address] [id number] [place] [address] Apr, [facility] [address] [id number] [place] [address] Apr, [facility] [address] [id number] [place] [address] Apr, [facility] [address] [id number] [place] [address] Apr, [facility] [address] [id number] [place] [address] Apr, [facility] [address] [id number] [place] [address] 15 Mar, 2012 [facility] [address] [id number] [place] [address] 15 Mar, 2012 [facility] [address] [id number] [place] [address] 05 Feb, 2012 [facility] [address] [id number] [place] [address] Jan, [facility] [address] [id number] [place] [address] Jan, [facility] [address] [id number] [place] [address] Dec, [facility] [address] [id number] [place] [address] Nov, [facility] [address] [id number] [place] [address] Nov, [facility] [address] [id number] [place] [address] October, [facility] [address] [id number] [place] [address] October, [facility] [address] [id number] [place] [address] Sep, [facility] [address] [id number] [place] [address] Sep, [facility] [address] [id number] [place] [address] May, [facility] [address] [id number] [place] [address] Apr, [facility] [address] [id number] [place] [address] Apr, [facility] [address] [id number] [place] [address] Apr, [facility] [address] [id number] [place] [address] 15 Apr, 2011 [facility] [address] [id number] [place] [address] 15 Apr, 2011 [facility] [id number] [place] [address] 10 Apr, 2011 [facility] [address] [id number] [place] [address] 10 Apr, 2011 [facility] [address] [id number] [place] [address] Apr, [facility] [address] [id number] [place] [address] Mar, [facility] [address] [id number] [place] [address] Mar, [facility] [address] [id number] [place] [address] Mar, [facility] [address] [id number] [place] [address] Mar, [facility] [address] [id number] [place] [address] Mar, [facility] [address] [id number] [place] [address] Mar, IMMUNIZATIONS No Known Immunizations SOCIAL HISTORY [...]
--- OUTSIDE RECORDS SUMMARY | 2019-12-24 19:42 | XMS REPORT ---
Author Author Trey ANDRADE Organization [facility] Address [address] [place] [address] Care Team Providers Care Ict Security Specialist Name Role Phone SURESH ANDRADE Unavailable PROBLEMS Type Condition ICD9-CM Code BBM79-CL Code Onset Dates Condition S tatus SNOMED Code Problem Nondependent 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 Ac tive 847508543 Problem Other chronic pain G89.29 Active 1 74901289 Problem Unspecified epilepsy without mention of intractable ep ilepsy G40.909 Active 83400407 Problem Hyperlipidemia, unspecified E78.5 Ac tive 13006615 Problem Hypertension I10 Active 9359985 3 Problem Esophageal reflux K21.9 Active 23 0556636 Problem Rheumatoid arthritis M06.9 Active 80412840 Problem Cough R05 Active 20546447 Problem Acquired hypothyroidism E03.9 Active 347244610 Problem Unspecified open-angle glaucoma, stage unspecified H40.10X0 Feb, Active 24322238 Problem Presbyopia H52.4 Active 75571708 Problem Insomnia G47.00 Active 028759965 Problem Arthralgia M25.50 Active 03441523 Problem Thyroid nodule E04.1 Active 80336 5005 Problem Anxiety disorder, unspecified F41.9 Active 890495869 Problem Chronic tension-type headache, intractable G44.221 Active 645815768 Problem Neuropathy G62.9 Active 511267113 Problem Goiter E04.9 Active 8042534 Problem Multinodular goiter E04.2 Active 229945215 Problem Carpal tunnel syndrome of left wrist G56.02 Active 362501045020804 Problem Chronic obstructive pulmonary disease, unspecified COPD ty pe J44.9 Active 73539960 Problem BMI 40.0-44.9, adult Z68.41 Active 207919013 Problem Seasonal allergic rhinitis due to pollen J30.1 Active 55267566 Problem Depression F32.9 Active 18860337 Problem Essential hypertension I10 Active 27800451 Problem Depressive disorder F32.9 Active 53267806 Problem Right-sided low back pain without sciatica M54.5 Active 419296329 Problem Reactive airway disease with out complication, unspecified asthma severity, unspecified whether persistent J45.909 Active 950219272304 Problem Urge incontinence of urine N39.41 Act chen 84468722 Problem Abnormal laboratory test R89.9 Activ e 691571431 Problem COPD with exacerbation J44.1 Active 866463564 ALLERGIES No Information ENCOUNTERS Encounter Location Date Diagnosis [place] [address] [address] Sep, [place] [address] [address] Aug, Pelvic pain R10.2 ; Other specified bact erial agents as the cause of diseases classified elsewhere B96.89 and Acute vaginitis N76.0 [place] [address] [address] Apr, Bronchitis J40 [place] [address] [address] Apr, Acute gastritis without hemorrhage, unsp ecified gastritis type K29.00 [place] [address] [address] Mar, [facility] [address] [address] Feb, [place] [address] [address] Feb, Mass of right side of neck R22.1 and Mul tinodular goiter E04.2 [facility] [address] [facility] [id number] [address] [place] [address] Jan, Bronchitis J40 [facility] [address] [address] October, Acquired hypothyroidism E03.9 [place] [address] [address] October, Acute gastritis without hemorrhage, unsp ecified gastritis type K29.00 ; Epigastric pain R10.13 ; Essential hypertension I10 ; Screening for colon cancer Z12.11 and BMI 40.0-44.9, adult Z68.41 [place] [address] [address] October, [facility] [place] [address] [address] October, Chest pain R07.9 and Morbid obesity E66.01 [facility] [address] [address] Sep, Generalized abdominal pain R 10.84 ; Morbid obesity E66.01 ; Non-intractable vomiting with nausea, unspecified vomiting type R11.2 and Seasonal allergic rhinitis due to pollen J30.1 [facility] [address] [address] Jul, COPD with exacerbation J44.1 ; Viral upper respiratory tract infection J06.9 and Morbid obesity E66.01 [facility] IN [place] [address] [address] Jun, Viral upper respiratory trac t infection J06.9 [place] [address] [address] Apr, Abnormal laboratory test R89.9 [place] [address] [address] Apr, Abnormal laboratory test R89.9 [place] [address] [address] Apr, Abnormal laboratory test R89.9 [place] [address] [address] Apr, [place] [address] [address] Apr, [place] [address] [address] Apr, Nonintractable episodic headache, unspec ified headache type R51 ; Urge incontinence of urine N39.41 ; BMI 40.0-44.9, adult Z68.41 ; Myalgia M79.10 and Acute cystitis without hematuria N30.00 [facility] [address] [address] Mar, Nasal congestion R09.81 ; Low back pain M54.5 ; Reactive airway disease without complication, unspecified asthma severity, unspecified whether persistent J45.909 ; Other chronic pain G89.29 ; Acute cystitis with hematuria N30.01 and BMI 40.0-44.9, adult Z68.41 [place] [address] [address] Mar, Acute cystitis with hematuria N30.01 [facility] [address] [facility] [id number] [address] [place] [address] Mar, BMI 40.0-44.9, adult Z68.41 ; Acute cystitis with hematuria N30.01 ; Acute bilateral low back pain without sciatica M54.5 and Nausea R11.0 [place] [address] [address] Mar, Hypertension I10 ; Acquired hypothyroidi sm E03.9 ; Esophageal reflux K21.9 ; Chronic obstructive pulmonary disease, unspecified COPD type J44.9 and BMI 40.0-44.9, adult Z68.41 [place] [address] [address] Mar, Hypertension I10 [place] [address] [address] Nov, Hyperlipidemia, unspecified E78.5 [place] [address] [address] October, Chest pain, unspecified type R07.9 and A cquired hypothyroidism E03.9 [place] [address] [address] October, Chest pain, unspecified type R07.9 ; Fam demetrius history of coronary artery disease Z82.49 ; Carpal tunnel syndrome of left wrist G56.02 ; Hypertension I10 ; Esophageal reflux K21.9 ; Arthralgia M25.50 ; Acquired hypothyroidism E03.9 ; Cough R05 ; Nausea R11.0 ; Weight gain R63.5 and BMI 45.0-49.9, adult Z68.[address] [address] Jun, Acquired hypothyroidism E03.9 and Cough R05 [address] [address] May, [address] [address] Feb, Tarsal tunnel syndrome of both lower ext remities G57.53 and Neuropathy G62.[address] [address] Dec, Pleuritis R09.[address] [address] Nov, [address] [address] October, Arthralgia, unspecified joint M25.50 and Allergy, initial encounter T78.40XA [address] [address] October, [address] [address] October, Acute recurrent maxillary sinusitis J01. 01 and Arthralgia M25.[address] [address] Sep, Pharyngitis due to other organism J02.[address] [address] Aug, Acute nasopharyngitis J00 [address] [place] [address] Aug, Multinodular goiter E04.2 [place] [address] [address] Aug, Thyroid nodule E04.1 [place] [address] [address] 17 Jul, 2016 Tarsal tunnel syndrome of both lower ext remities G57.53 [place] [address] [address] Jun, Pneumonia due to infectious organism, un specified laterality, unspecified part of lung J18.9 [place] [address] [address] Jun, Bronchospasm with bronchitis, acute J20. 9 [place] [address] [address] May, Acute non-recurrent frontal sinusitis J0 1.10 [place] [address] [address] May, Flat foot [pes planus] (acquired), left foot M21.42 ; Flat foot [pes planus] (acquired), right foot M21.41 and Neuropathy G62.9 [place] [address] [address] Apr, Chronic tension-type headache, intractab le G44.221 ; Right lower quadrant abdominal pain R10.31 ; Cervicalgia M54.2 ; Acute gastritis without hemorrhage, unspecified gastritis type K29.00 and Hypertension I10 [place] [address] [address] Mar, Depression F32.9 and Anxiety disorder, u nspecified F41.9 [place] [address] [address] Feb, Depressive disorder F32.9 and Anxiety di sorder, unspecified F41.9 [place] [address] [address] Jan, Dysuria R30.0 ; Lower abdominal pain R10 .30 ; Acute bilateral low back pain without sciatica M54.5 ; Nausea and vomiting, unspecified intactability, vomiting of unspecified type R11.2 ; Pain in right foot M79.671 and Pain of left foot M79.672 [place] [address] [address] Dec, Urinary tract infection, site not specif ied N39.0 [place] [address] [address] Dec, [place] [address] [address] Nov, [place] [address] [address] Nov, Dysuria R30.0 [place] [address] [address] Nov, Dysuria R30.0 and Acute cystitis with he maturia N30.01 [place] [address] [address] October, Nausea R11.0 [place] [address] [address] October, Thyroid nodule E04.1 ; Carpal tunnel syn drome, left upper limb G56.02 ; Carpal tunnel syndrome, right upper limb G56.01 and Constipation, unspecified constipation type K59.00 [place] [address] [address] October, [place] [address] [address] October, Thyroid nodule E04.1 [place] [address] [address] October, Cold thyroid nodule E04.1 [place] [address] [address] October, [place] [address] [address] Sep, Thyroid nodule E04.1 [place] [address] [address] Sep, Thyroid nodule E04.1 [place] [address] [address] Sep, Thyroid nodule E04.1 ; Hypertension I10 ; Esophageal reflux K21.9 and Hyperlipidemia, unspecified E78.5 [place] [address] [address] Aug, Other chronic pain G89.29 ; Sinusitis J3 2.9 and Hypertension I10 [place] [address] [address] 29 Jul, [address] [address] 15 Jul, 2015 [place] [address] [address] 10 Jul, 2015 Insomnia G47.00 and Arthralgia M25.[address] [address] 10 Jul, 2015 Depressive disorder F32.9 and Anxiety di sorder, unspecified F41.[address] [address] May, Right-sided low back pain without sciati ca M54.5 and Depression F32.[address] [address] Apr, Hematuria R31.[address] [address] Mar, Other chronic pain G89.[address] [address] Mar, Other chronic pain G89.29 [facility] [address] [place] [id number] [place] [address] Feb, [facility] [address] [address] Feb, Other chronic pain 338.29 ; Dysuria 788. 1 ; UTI (urinary tract infection) 599.0 ; Insomnia 780.52 ; Hot flashes 627.2 and Hypertension 401.9 [facility] [address] [address] Feb, Dysuria 788.1 [facility] [address] [address] Feb, [facility] [address] [address] Jan, [facility] [address] [address] Jan, [facility] [address] [address] Jan, Fibromyalgia 729.1 ; Hypertension 401.9 ; Dysthymia 300.4 and Hot flashes 627.2 [facility] [address] [place] [id number] [place] [address] Dec, [facility] [address] [address] Dec, [facility] [address] [address] Dec, [facility] [address] [address] Nov, Other chronic pain 338.29 [facility] [address] [address] October, [facility] [address] [address] October, [facility] [address] [address] Sep, [facility] [address] [id number] [place] [address] 13 Sep, 2014 [facility] [address] [id number] [place] [address] Aug, [facility] [address] [id number] [place] [address] Aug, [facility] [address] [id number] [place] [address] Aug, [facility] [address] [id number] [place] [address] Aug, [facility] [address] [id number] [place] [address] Aug, [facility] [address] [id number] [place] [address] Aug, [facility] [address] [id number] [place] [address] Aug, [facility] [address] [id number] [place] [address] Aug, [facility] [address] [id number] [place] [address] Aug, [facility] [address] [id number] [place] [address] Aug, [facility] [address] [id number] [place] [address] Aug, [facility] [address] [id number] [place] [address] Aug, [facility] [address] [id number] [place] [address] Aug, [facility] [address] [id number] [place] [address] Aug, [facility] [address] [id number] [place] [address] Jul, [facility] [address] [id number] [place] [address] Jul, [facility] [address] [id number] [place] [address] Jul, [facility] [address] [id number] [place] [address] Jul, [facility] [address] [id number] [place] [address] Jul, [facility] [address] [id number] [place] [address] Jul, [facility] [address] [id number] [place] [address] Jun, [facility] [address] [id number] [place] [address] Jun, [facility] [address] [id number] [place] [address] Jun, [facility] [address] [id number] [place] [address] Jun, [facility] [address] [id number] [place] [address] May, [facility] [address] [id number] [place] [address] May, [facility] [address] [id number] [place] [address] May, [facility] [address] [id number] [place] [address] May, [facility] [address] [id number] [place] [address] May, [facility] [address] [id number] [place] [address] May, [facility] [address] [id number] [place] [address] May, [facility] [address] [id number] [place] [address] May, [facility] [address] [id number] [place] [address] May, [facility] [address] [id number] [place] [address] May, [facility] [address] [id number] [place] [address] Apr, [facility] [address] [id number] [place] [address] Apr, [facility] [address] [id number] [place] [address] Apr, [facility] [address] [id number] [place] [address] Apr, [facility] [address] [id number] [place] [address] Apr, [facility] [address] [id number] [place] [address] Apr, [facility] [address] [id number] [place] [address] Apr, [facility] [address] [id number] [place] [address] Apr, [facility] [address] [id number] [place] [address] Apr, [facility] [address] [id number] [place] [address] Mar, [facility] [address] [id number] [place] [address] Mar, [facility] [address] [id number] [place] [address] Mar, [facility] [address] [place] [id number] [place] [address] Mar, [facility] [address] [id number] [place] [address] Mar, [facility] [address] [id number] [place] [address] Mar, [facility] [address] [facility] [id number] [place] [address] 08 Mar, 2013 [facility] [address] [id number] [place] [address] 08 Mar, 2013 [facility] [address] [id number] [place] [address] 30 Sep, 2013 [facility] [address] [id number] [place] [address] 30 Sep, 2013 [facility] [address] [facility] [id number] [place] [address] 24 Sep, 2013 [facility] [address] [id number] [place] [address] 24 Sep, 2013 [facility] [address] [id number] [place] [address] 22 Sep, 2013 [facility] [address] [id number] [place] [address] 22 Sep, 2013 [facility] [address] [id number] [place] [address] 10 Sep, 2013 [facility] [address] [id number] [place] [address] 10 Sep, 2013 [facility] [address] [id number] [place] [address] 03 Sep, 2013 [facility] [address] [id number] [place] [address] 03 Sep, 2013 [facility] [address] [id number] [place] [address] 03 Sep, 2013 [facility] [address] [id number] [place] [address] 03 Sep, 2013 [facility] [address] [id number] [place] [address] 03 Sep, 2013 [facility] [address] [id number] [place] [address] 03 Sep, 2013 [facility] [address] [id number] [facility] [address] Jan, 2013 [facility] [address] [id number] [place] [address] Jan, [facility] [address] [facility] [id number] [place] [address] Dec, [facility] [address] [facility] [id number] [place] [address] Dec, [facility] [address] [facility] [id number] [place] [address] Dec, [facility] [address] [facility] [id number] [place] [address] Dec, [facility] [address] [facility] [id number] [place] [id number] Dec, [facility] [address] [id number] [place] [address] Dec, [facility] [address] [id number] [place] [address] Dec, [facility] [address] [facility] [id number] [place] [address] Dec, [facility] [address] [id number] [place] [address] Dec, [facility] [address] [id number] [place] [address] Dec, 2013 [facility] [address] [id number] [place] [address] Dec, 2013 [facility] [address] [facility] [id number] [place] [address] Dec, 2013 [facility] [address] [id number] [place] [address] Dec, 2013 [facility] [address] [id number] [place] [address] Dec, 2013 [facility] [address] [id number] [place] [address] Dec, 2013 [facility] [address] [id number] [facility] [address] Dec, [facility] [address] [facility] [id number] [place] [address] Dec, [facility] [address] [facility] [id number] [place] [address] Dec, [facility] [address] [id number] [place] [address] Dec, [facility] [address] [facility] [id number] [place] [address] Nov, [facility] [address] [facility] [id number] [place] [address] Nov, [facility] [address] [id number] [place] [address] Nov, [facility] [address] [id number] [place] [address] Nov, [facility] [address] [id number] [place] [address] Nov, [facility] [address] [id number] [place] [address] Nov, [facility] [address] [id number] [place] [address] Nov, [facility] [address] [id number] [place] [address] Nov, [facility] [address] [id number] [place] [address] Nov, [facility] [address] [facility] [id number] [place] [address] October, [facility] [address] [id number] [place] [address] October, [facility] [address] [id number] [place] [address] October, [facility] [address] [id number] [place] [address] October, [facility] [address] [id number] [place] [address] October, [facility] [address] [id number] [place] [address] October, [facility] [address] [id number] [place] [address] October, [facility] [address] [id number] [place] [address] October, [facility] [address] [id number] [place] [address] Sep, [facility] [address] [id number] [place] [address] Sep, [facility] [address] [id number] [place] [address] Sep, [facility] [address] [id number] [place] [address] Sep, [facility] [address] [id number] [place] [address] Sep, [facility] [address] [id number] [place] [address] Sep, [facility] [address] [id number] [place] [address] Sep, [facility] [address] [id number] [place] [address] Aug, [facility] [address] [id number] [place] [address] Aug, [facility] [address] [id number] [place] [address] Aug, [facility] [address] [id number] [place] [address] Aug, [facility] [address] [id number] [place] [address] Aug, [facility] [address] [id number] [place] [address] Aug, [facility] [address] [facility] [id number] [place] [address] Jul, [facility] [address] [id number] [place] [address] Jul, [facility] [address] [id number] [place] [address] Jul, [facility] [address] [id number] [place] [address] Jul, [facility] [address] [id number] [place] [address] Jul, [facility] [address] [id number] [place] [address] Jul, [facility] [address] [id number] [place] [address] Jun, [facility] [address] [id number] [place] [address] Jun, [facility] [address] [id number] [place] [address] Jun, [facility] [address] [id number] [place] [address] Jun, [facility] [address] [id number] [place] [address] Jun, [facility] [address] [id number] [place] [address] Jun, [facility] [address] [id number] [place] [address] Jun, [facility] [address] [id number] [place] [address] Jun, [facility] [address] [id number] [place] [address] Jun, [facility] [address] [id number] [place] [address] Jun, [facility] [address] [id number] [place] [address] 14 Jun, 2013 [facility] [address] [id number] [place] [address] 14 Jun, 2013 [facility] [address] [id number] [place] [address] 14 Jun, 2013 [facility] [address] [id number] [place] [address] 30 May, 2013 [facility] [address] [id number] [place] [address] 30 May, 2013 [facility] [address] [id number] [place] [address] 30 May, 2013 [facility] [address] [id number] [place] [address] 30 May, 2013 [facility] [address] [id number] [place] [address] 26 May, 2012 [facility] [address] [id number] [place] [address] 14 May, 2013 [facility] [address] [id number] [place] [address] 14 May, 2013 [facility] [address] [id number] [place] [address] 12 May, 2013 [facility] [address] [id number] [place] [address] 12 May, 2013 [facility] [address] [id number] [place] [address] 11 May, 2013 [facility] [address] [id number] [place] [address] 11 May, 2013 [facility] [address] [id number] [place] [address] 10 May, 2013 [facility] [address] [id number] [place] [address] 10 May, 2013 [facility] [address] [id number] [place] [address] 09 May, 2012 [facility] [address] [id number] [place] [address] 09 May, 2012 [facility] [address] [id number] [place] [address] 08 May, 2012 [facility] [address] [id number] [place] [address] May, 2012 [facility] [address] [id number] [place] [address] May, 2012 [facility] [address] [id number] [place] [address] May, 2012 [facility] [address] [id number] [place] [address] May, 2012 [facility] [address] [id number] [place] [address] May, 2012 [facility] [address] [id number] [place] [address] Apr, [facility] [address] [id number] [place] [address] Apr, [facility] [address] [id number] [place] [address] Apr, [facility] [address] [id number] [place] [address] Apr, [facility] [address] [id number] [place] [address] 08 Mar, 2013 [facility] [address] [id number] [place] [address] 23 Sep, 2012 [facility] [address] [id number] [place] [address] 16 Sep, 2012 [facility] [address] [id number] [place] [address] 13 Sep, 2012 [facility] [address] [id number] [place] [address] 10 Sep, 2012 [facility] [address] [id number] [place] [address] 09 Feb, 2012 [facility] [id number] [place] [address] Feb, [facility] [address] [id number] [place] [address] Jan, [facility] [address] [id number] [place] [address] Jan, [facility] [address] [id number] [place] [address] Jan, [facility] [address] [id number] [place] [address] Dec, [facility] [address] [id number] [place] [address] Dec, [facility] [address] [id number] [place] [address] Dec, [facility] [address] [id number] [place] [address] Dec, [facility] [address] [id number] [place] [address] Dec, [facility] [address] [id number] [place] [address] Nov, [facility] [address] [id number] [place] [address] Nov, [facility] [address] [id number] [place] [address] Nov, [facility] [address] [id number] [place] [address] Nov, [facility] [address] [id number] [place] [address] Nov, [facility] [address] [id number] [place] [address] Nov, [facility] [address] [id number] [place] [address] Nov, [facility] [address] [id number] [place] [address] Nov, [facility] [address] [id number] [place] [address] Nov, [facility] [address] [id number] [place] [address] Nov, [facility] [address] [id number] [place] [address] October, [facility] [address] [id number] [place] [address] October, [facility] [address] [id number] [place] [address] Sep, [facility] [address] [id number] [place] [address] Sep, [facility] [address] [id number] [place] [address] Sep, [facility] [address] [id number] [place] [address] Sep, [facility] [address] [id number] [place] [address] Sep, [facility] [address] [id number] [place] [address] Aug, [facility] [address] [id number] [place] [address] Aug, [facility] [address] [id number] [place] [address] Jul, [facility] [address] [id number] [place] [address] Jul, [facility] [address] [id number] [place] [address] Jun, [facility] [address] [id number] [place] [address] Jun, [facility] [address] [id number] [place] [address] 05 May, 2012 [facility] [address] [id number] [place] [address] May, [facility] [address] [id number] [place] [address] May, [facility] [address] [id number] [place] [address] May, [facility] [address] [id number] [place] [address] Apr, [facility] [address] [id number] [place] [address] Apr, [facility] [address] [id number] [place] [address] Apr, [facility] [address] [id number] [place] [address] Apr, [facility] [address] [id number] [place] [address] Apr, [facility] [address] [id number] [place] [address] Apr, [facility] [address] [id number] [place] [address] Apr, [facility] [address] [id number] [place] [address] Apr, [facility] [address] [id number] [place] [address] Apr, [facility] [address] [id number] [place] [address] 15 Mar, 2012 [facility] [address] [id number] [place] [address] 15 Mar, 2012 [facility] [address] [id number] [place] [address] 05 Feb, 2012 [facility] [address] [id number] [place] [address] Jan, [facility] [address] [id number] [place] [address] Jan, [facility] [address] [id number] [place] [address] Dec, [facility] [address] [id number] [place] [address] Nov, [facility] [address] [id number] [place] [address] Nov, [facility] [address] [id number] [place] [address] October, [facility] [address] [id number] [place] [address] October, [facility] [address] [id number] [place] [address] Sep, [facility] [address] [id number] [place] [address] Sep, [facility] [address] [id number] [place] [address] May, [facility] [address] [id number] [place] [address] Apr, [facility] [address] [id number] [place] [address] Apr, [facility] [address] [id number] [place] [address] Apr, [facility] [address] [id number] [place] [address] 15 Apr, 2011 [facility] [address] [id number] [place] [address] 15 Apr, 2011 [facility] [id number] [place] [address] 10 Apr, 2011 [facility] [address] [id number] [place] [address] 10 Apr, 2011 [facility] [address] [id number] [place] [address] Apr, [facility] [address] [id number] [place] [address] Mar, [facility] [address] [id number] [place] [address] Mar, [facility] [address] [id number] [place] [address] Mar, [facility] [address] [id number] [place] [address] Mar, [facility] [address] [id number] [place] [address] Mar, [facility] [address] [id number] [place] [address] Mar, IMMUNIZATIONS No Known Immunizations SOCIAL HISTORY Never Assessed REASON FOR VISIT PLAN OF CARE VITAL SIGNS Height 62 in 2013-07-03 Weight 242.44 lbs 2013-07-03 Temperature 98.9 degrees Fahrenheit 2013-07-03 Heart Rate 70 bpm 2013-07-03 Respiratory Rate 18 2013-07-03 Blood pressure systolic 136 mmHg 2013-07-03 Blood pressure diastolic 80 mmHg 2013-07-03 MEDICATIONS Unknown Medications RESULTS No Results PROCEDURES No Known procedures INSTRUCTIONS MEDICATIONS ADMINISTERED No Known Medications MEDICAL (GENERAL) HISTORY Type Description Date Medical History HTN Medical History Depression Medical History Arthritis Medical History COPD Surgical History Breast lump removed Surgical History Removal of cyst from ovary Surgical History cholecystectomy Surgical History Stomach surgeryx3 Surgical History tubal ligation Hospitalization History Mental floor at [facility]
--- OUTSIDE RECORDS SUMMARY | 2019-12-24 19:42 | XMS REPORT ---
Author Author Trey ANDRADE Organization [facility] Address [address] [place] [address] Care Team Providers Care Back Winder Name Role Phone SURESH ANDRADE Unavailable PROBLEMS Type Condition ICD9-CM Code UKZ38-GO Code Onset Dates Condition S tatus SNOMED Code Problem Nondependent 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 Ac tive 511970811 Problem Other chronic pain G89.29 Active 1 25693170 Problem Unspecified epilepsy without mention of intractable ep ilepsy G40.909 Active 42184902 Problem Hyperlipidemia, unspecified E78.5 Ac tive 39728716 Problem Hypertension I10 Active 2587715 3 Problem Esophageal reflux K21.9 Active 23 8514126 Problem Rheumatoid arthritis M06.9 Active 05819800 Problem Cough R05 Active 26553697 Problem Acquired hypothyroidism E03.9 Active 549862467 Problem Unspecified open-angle glaucoma, stage unspecified H40.10X0 Feb, Active 19968237 Problem Presbyopia H52.4 Active 26338076 Problem Insomnia G47.00 Active 012577698 Problem Arthralgia M25.50 Active 76921845 Problem Thyroid nodule E04.1 Active 38053 5005 Problem Anxiety disorder, unspecified F41.9 Active 761958797 Problem Chronic tension-type headache, intractable G44.221 Active 850096465 Problem Neuropathy G62.9 Active 118503320 Problem Goiter E04.9 Active 0198391 Problem Multinodular goiter E04.2 Active 384164758 Problem Carpal tunnel syndrome of left wrist G56.02 Active 528878050554679 Problem Chronic obstructive pulmonary disease, unspecified COPD ty pe J44.9 Active 75566957 Problem BMI 40.0-44.9, adult Z68.41 Active 339620616 Problem Seasonal allergic rhinitis due to pollen J30.1 Active 57487070 Problem Depression F32.9 Active 23852539 Problem Essential hypertension I10 Active 97289154 Problem Depressive disorder F32.9 Active 73804814 Problem Right-sided low back pain without sciatica M54.5 Active 460187217 Problem Reactive airway disease with out complication, unspecified asthma severity, unspecified whether persistent J45.909 Active 515911172720 Problem Urge incontinence of urine N39.41 Act chen 49133538 Problem Abnormal laboratory test R89.9 Activ e 918736349 Problem COPD with exacerbation J44.1 Active 123184156 ALLERGIES No Information ENCOUNTERS Encounter Location Date Diagnosis [place] [address] [address] Sep, [place] [address] [address] Aug, Pelvic pain R10.2 ; Other specified bact erial agents as the cause of diseases classified elsewhere B96.89 and Acute vaginitis N76.0 [place] [address] [address] Apr, Bronchitis J40 [place] [address] [address] Apr, Acute gastritis without hemorrhage, unsp ecified gastritis type K29.00 [place] [address] [address] Mar, [facility] [address] [address] Feb, [place] [address] [address] Feb, Mass of right side of neck R22.1 and Mul tinodular goiter E04.2 [facility] [address] [facility] [id number] [address] [place] [address] Jan, Bronchitis J40 [facility] [address] [address] October, Acquired hypothyroidism E03.9 [place] [address] [address] October, Acute gastritis without hemorrhage, unsp ecified gastritis type K29.00 ; Epigastric pain R10.13 ; Essential hypertension I10 ; Screening for colon cancer Z12.11 and BMI 40.0-44.9, adult Z68.41 [place] [address] [address] October, [facility] [place] [address] [address] October, Chest pain R07.9 and Morbid obesity E66.01 [facility] [address] [address] Sep, Generalized abdominal pain R 10.84 ; Morbid obesity E66.01 ; Non-intractable vomiting with nausea, unspecified vomiting type R11.2 and Seasonal allergic rhinitis due to pollen J30.1 [facility] [address] [address] Jul, COPD with exacerbation J44.1 ; Viral upper respiratory tract infection J06.9 and Morbid obesity E66.01 [facility] [place] [address] [address] Jun, Viral upper respiratory trac t infection J06.9 [place] [address] [address] Apr, Abnormal laboratory test R89.9 [place] [address] [address] Apr, Abnormal laboratory test R89.9 [place] [address] [address] Apr, Abnormal laboratory test R89.9 [place] [address] [address] Apr, [place] [address] [address] Apr, [place] [address] [address] Apr, Nonintractable episodic headache, unspec ified headache type R51 ; Urge incontinence of urine N39.41 ; BMI 40.0-44.9, adult Z68.41 ; Myalgia M79.10 and Acute cystitis without hematuria N30.00 [facility] [address] [address] Mar, Nasal congestion R09.81 ; Low back pain M54.5 ; Reactive airway disease without complication, unspecified asthma severity, unspecified whether persistent J45.909 ; Other chronic pain G89.29 ; Acute cystitis with hematuria N30.01 and BMI 40.0-44.9, adult Z68.41 [place] [address] [address] Mar, Acute cystitis with hematuria N30.01 [facility] [address] [facility] [id number] [address] [place] [address] Mar, BMI 40.0-44.9, adult Z68.41 ; Acute cystitis with hematuria N30.01 ; Acute bilateral low back pain without sciatica M54.5 and Nausea R11.0 [place] [address] [address] Mar, Hypertension I10 ; Acquired hypothyroidi sm E03.9 ; Esophageal reflux K21.9 ; Chronic obstructive pulmonary disease, unspecified COPD type J44.9 and BMI 40.0-44.9, adult Z68.41 [place] [address] [address] Mar, Hypertension I10 [place] [address] [address] Nov, Hyperlipidemia, unspecified E78.5 [place] [address] [address] October, Chest pain, unspecified type R07.9 and A cquired hypothyroidism E03.9 [place] [address] [address] October, Chest pain, unspecified type R07.9 ; Fam demetrius history of coronary artery disease Z82.49 ; Carpal tunnel syndrome of left wrist G56.02 ; Hypertension I10 ; Esophageal reflux K21.9 ; Arthralgia M25.50 ; Acquired hypothyroidism E03.9 ; Cough R05 ; Nausea R11.0 ; Weight gain R63.5 and BMI 45.0-49.9, adult Z68.[address] [address] Jun, Acquired hypothyroidism E03.9 and Cough R05 [address] [address] May, [address] [address] Feb, Tarsal tunnel syndrome of both lower ext remities G57.53 and Neuropathy G62.[address] [address] Dec, Pleuritis R09.[address] [address] Nov, [address] [address] October, Arthralgia, unspecified joint M25.50 and Allergy, initial encounter T78.40XA [address] [address] October, [address] [address] October, Acute recurrent maxillary sinusitis J01. 01 and Arthralgia M25.[address] [address] Sep, Pharyngitis due to other organism J02.[address] [address] Aug, Acute nasopharyngitis J00 [address] [place] [address] Aug, Multinodular goiter E04.2 [place] [address] [address] Aug, Thyroid nodule E04.1 [place] [address] [address] 17 Jul, 2016 Tarsal tunnel syndrome of both lower ext remities G57.53 [place] [address] [address] Jun, Pneumonia due to infectious organism, un specified laterality, unspecified part of lung J18.9 [place] [address] [address] Jun, Bronchospasm with bronchitis, acute J20. 9 [place] [address] [address] May, Acute non-recurrent frontal sinusitis J0 1.10 [place] [address] [address] May, Flat foot [pes planus] (acquired), left foot M21.42 ; Flat foot [pes planus] (acquired), right foot M21.41 and Neuropathy G62.9 [place] [address] [address] Apr, Chronic tension-type headache, intractab le G44.221 ; Right lower quadrant abdominal pain R10.31 ; Cervicalgia M54.2 ; Acute gastritis without hemorrhage, unspecified gastritis type K29.00 and Hypertension I10 [place] [address] [address] Mar, Depression F32.9 and Anxiety disorder, u nspecified F41.9 [place] [address] [address] Feb, Depressive disorder F32.9 and Anxiety di sorder, unspecified F41.9 [place] [address] [address] Jan, Dysuria R30.0 ; Lower abdominal pain R10 .30 ; Acute bilateral low back pain without sciatica M54.5 ; Nausea and vomiting, unspecified intactability, vomiting of unspecified type R11.2 ; Pain in right foot M79.671 and Pain of left foot M79.672 [place] [address] [address] Dec, Urinary tract infection, site not specif ied N39.0 [place] [address] [address] Dec, [place] [address] [address] Nov, [place] [address] [address] Nov, Dysuria R30.0 [place] [address] [address] Nov, Dysuria R30.0 and Acute cystitis with he maturia N30.01 [place] [address] [address] October, Nausea R11.0 [place] [address] [address] October, Thyroid nodule E04.1 ; Carpal tunnel syn drome, left upper limb G56.02 ; Carpal tunnel syndrome, right upper limb G56.01 and Constipation, unspecified constipation type K59.00 [place] [address] [address] October, [place] [address] [address] October, Thyroid nodule E04.1 [place] [address] [address] October, Cold thyroid nodule E04.1 [place] [address] [address] October, [place] [address] [address] Sep, Thyroid nodule E04.1 [place] [address] [address] Sep, Thyroid nodule E04.1 [place] [address] [address] Sep, Thyroid nodule E04.1 ; Hypertension I10 ; Esophageal reflux K21.9 and Hyperlipidemia, unspecified E78.5 [place] [address] [address] Aug, Other chronic pain G89.29 ; Sinusitis J3 2.9 and Hypertension I10 [place] [address] [address] 29 Jul, [address] [address] 15 Jul, 2015 [place] [address] [address] 10 Jul, 2015 Insomnia G47.00 and Arthralgia M25.[address] [address] 10 Jul, 2015 Depressive disorder F32.9 and Anxiety di sorder, unspecified F41.[address] [address] May, Right-sided low back pain without sciati ca M54.5 and Depression F32.[address] [address] Apr, Hematuria R31.[address] [address] Mar, Other chronic pain G89.[address] [address] Mar, Other chronic pain G89.29 [facility] [address] [place] [id number] [place] [address] Feb, [facility] [address] [address] Feb, Other chronic pain 338.29 ; Dysuria 788. 1 ; UTI (urinary tract infection) 599.0 ; Insomnia 780.52 ; Hot flashes 627.2 and Hypertension 401.9 [facility] [address] [address] Feb, Dysuria 788.1 [facility] [address] [address] Feb, [facility] [address] [address] Jan, [facility] [address] [address] Jan, [facility] [address] [address] Jan, Fibromyalgia 729.1 ; Hypertension 401.9 ; Dysthymia 300.4 and Hot flashes 627.2 [facility] [address] [place] [id number] [place] [address] Dec, [facility] [address] [address] Dec, [facility] [address] [address] Dec, [facility] [address] [address] Nov, Other chronic pain 338.29 [facility] [address] [address] October, [facility] [address] [address] October, [facility] [address] [address] Sep, [facility] [address] [id number] [place] [address] 13 Sep, 2014 [facility] [address] [id number] [place] [address] Aug, [facility] [address] [id number] [place] [address] Aug, [facility] [address] [id number] [place] [address] Aug, [facility] [address] [id number] [place] [address] Aug, [facility] [address] [id number] [place] [address] Aug, [facility] [address] [id number] [place] [address] Aug, [facility] [address] [id number] [place] [address] Aug, [facility] [address] [id number] [place] [address] Aug, [facility] [address] [id number] [place] [address] Aug, [facility] [address] [id number] [place] [address] Aug, [facility] [address] [id number] [place] [address] Aug, [facility] [address] [id number] [place] [address] Aug, [facility] [address] [id number] [place] [address] Aug, [facility] [address] [id number] [place] [address] Aug, [facility] [address] [id number] [place] [address] Jul, [facility] [address] [id number] [place] [address] Jul, [facility] [address] [id number] [place] [address] Jul, [facility] [address] [id number] [place] [address] Jul, [facility] [address] [id number] [place] [address] Jul, [facility] [address] [id number] [place] [address] Jul, [facility] [address] [id number] [place] [address] Jun, [facility] [address] [id number] [place] [address] Jun, [facility] [address] [id number] [place] [address] Jun, [facility] [address] [id number] [place] [address] Jun, [facility] [address] [id number] [place] [address] May, [facility] [address] [id number] [place] [address] May, [facility] [address] [id number] [place] [address] May, [facility] [address] [id number] [place] [address] May, [facility] [address] [id number] [place] [address] May, [facility] [address] [id number] [place] [address] May, [facility] [address] [id number] [place] [address] May, [facility] [address] [id number] [place] [address] May, [facility] [address] [id number] [place] [address] May, [facility] [address] [id number] [place] [address] May, [facility] [address] [id number] [place] [address] Apr, [facility] [address] [id number] [place] [address] Apr, [facility] [address] [id number] [place] [address] Apr, [facility] [address] [id number] [place] [address] Apr, [facility] [address] [id number] [place] [address] Apr, [facility] [address] [id number] [place] [address] Apr, [facility] [address] [id number] [place] [address] Apr, [facility] [address] [id number] [place] [address] Apr, [facility] [address] [id number] [place] [address] Apr, [facility] [address] [id number] [place] [address] Mar, [facility] [address] [id number] [place] [address] Mar, [facility] [address] [id number] [place] [address] Mar, [facility] [address] [place] [id number] [place] [address] Mar, [facility] [address] [id number] [place] [address] Mar, [facility] [address] [id number] [place] [address] Mar, [facility] [address] [facility] [id number] [place] [address] 08 Mar, 2013 [facility] [address] [id number] [place] [address] 08 Mar, 2013 [facility] [address] [id number] [place] [address] 30 Sep, 2013 [facility] [address] [id number] [place] [address] 30 Sep, 2013 [facility] [address] [facility] [id number] [place] [address] 24 Sep, 2013 [facility] [address] [id number] [place] [address] 24 Sep, 2013 [facility] [address] [id number] [place] [address] 22 Sep, 2013 [facility] [address] [id number] [place] [address] 22 Sep, 2013 [facility] [address] [id number] [place] [address] 10 Sep, 2013 [facility] [address] [id number] [place] [address] 10 Sep, 2013 [facility] [address] [id number] [place] [address] 03 Sep, 2013 [facility] [address] [id number] [place] [address] 03 Sep, 2013 [facility] [address] [id number] [place] [address] 03 Sep, 2013 [facility] [address] [id number] [place] [address] 03 Sep, 2013 [facility] [address] [id number] [place] [address] 03 Sep, 2013 [facility] [address] [id number] [place] [address] 03 Sep, 2013 [facility] [address] [id number] [facility] [place] [address] Jan, 2013 [facility] [address] [id number] [place] [address] Jan, [facility] [address] [facility] [id number] [place] [address] Dec, [facility] [address] [facility] [id number] [place] [address] Dec, [facility] [address] [facility] [id number] [place] [address] Dec, [facility] [address] [facility] [id number] [place] [address] Dec, [facility] [address] [facility] [id number] [place] [id number] Dec, [facility] [address] [id number] [place] [address] Dec, [facility] [address] [id number] [place] [address] Dec, [facility] [address] [facility] [id number] [place] [address] Dec, [facility] [address] [id number] [place] [address] Dec, [facility] [address] [id number] [place] [address] Dec, 2013 [facility] [address] [id number] [place] [address] Dec, 2013 [facility] [address] [facility] [id number] [place] [address] Dec, 2013 [facility] [address] [id number] [place] [address] Dec, 2013 [facility] [address] [id number] [place] [address] Dec, 2013 [facility] [address] [id number] [place] [address] Dec, 2013 [facility] [address] [id number] [facility] [place] [address] Dec, [facility] [address] [facility] [id number] [place] [address] Dec, [facility] [address] [facility] [id number] [place] [address] Dec, [facility] [address] [id number] [place] [address] Dec, [facility] [address] [facility] [id number] [place] [address] Nov, [facility] [address] [facility] [id number] [place] [address] Nov, [facility] [address] [id number] [place] [address] Nov, [facility] [address] [id number] [place] [address] Nov, [facility] [address] [id number] [place] [address] Nov, [facility] [address] [id number] [place] [address] Nov, [facility] [address] [id number] [place] [address] Nov, [facility] [address] [id number] [place] [address] Nov, [facility] [address] [id number] [place] [address] Nov, [facility] [address] [facility] [id number] [place] [address] October, [facility] [address] [id number] [place] [address] October, [facility] [address] [id number] [place] [address] October, [facility] [address] [id number] [place] [address] October, [facility] [address] [id number] [place] [address] October, [facility] [address] [id number] [place] [address] October, [facility] [address] [id number] [place] [address] October, [facility] [address] [id number] [place] [address] October, [facility] [address] [id number] [place] [address] Sep, [facility] [address] [id number] [place] [address] Sep, [facility] [address] [id number] [place] [address] Sep, [facility] [address] [facility] [id number] [place] [address] Sep, [facility] [id number] [place] [address] Sep, [facility] [address] [id number] [place] [address] Sep, [facility] [id number] [place] [address] Sep, [facility] [id number] [place] [address] Aug, [facility] [id number] [place] [address] Aug, [facility] [id number] [place] [address] Aug, [facility] [id number] [place] [address] Aug, [facility] [id number] [place] [address] Aug, [facility] [id number] [place] [address] Aug, [facility] [address] [id number] [place] [address] Jul, [facility] [address] [id number] [place] [address] Jul, [facility] [id number] [place] [address] Jul, [facility] [id number] [place] [address] Jul, [facility] [id number] [place] [address] Jul, [facility] [address] [id number] [place] [address] Jul, [facility] [id number] [place] [address] Jun, [facility] [address] [id number] [place] [address] Jun, [facility] [address] [id number] [place] [address] Jun, [facility] [id number] [place] [address] Jun, [facility] [id number] [place] [address] Jun, [facility] [id number] [place] [address] Jun, [facility] [address] [id number] [place] [address] Jun, [facility] [address] [id number] [place] [address] Jun, [facility] [address] [id number] [place] [address] Jun, [facility] [address] [id number] [place] [address] Jun, [facility] [id number] [place] [address] 14 Jun, 2013 [facility] [id number] [place] [address] 14 Jun, 2013 [facility] [address] [id number] [place] [address] 14 Jun, 2013 [facility] [id number] [place] [address] 30 May, 2013 [facility] [id number] [place] [address] 30 May, 2013 [facility] [id number] [place] [address] 30 May, 2013 [facility] [id number] [place] [address] 30 May, 2013 [facility] [id number] [place] [address] 26 May, 2012 [facility] [id number] [place] [address] 14 May, 2013 [facility] [facility] [id number] [place] [address] 14 May, 2013 [facility] [id number] [place] [address] 12 May, 2013 [facility] [id number] [place] [address] 12 May, 2013 [facility] [id number] [place] [address] 11 May, 2013 [facility] [id number] [place] [address] 11 May, 2013 [facility] [id number] [place] [address] 10 May, 2013 [facility] [id number] [place] [address] 10 May, 2013 [facility] [id number] [place] [address] 09 May, 2012 [facility] [id number] [place] [address] 09 May, 2012 [facility] [id number] [place] [address] 08 May, 2012 [facility] [id number] [place] [address] May, 2012 [facility] [id number] [place] [address] May, 2012 [facility] [id number] [place] [address] May, 2012 [facility] [id number] [place] [address] May, 2012 [facility] [id number] [place] [address] May, 2012 [facility] [id number] [place] [address] Apr, [facility] [id number] [place] [address] Apr, [facility] [id number] [place] [address] Apr, [facility] [id number] [place] [address] Apr, [facility] [id number] [place] [address] 08 Mar, 2013 [facility] [id number] [place] [address] 23 Sep, 2012 [facility] [id number] [place] [address] 16 Sep, 2012 [facility] [id number] [place] [address] 13 Sep, 2012 [facility] [id number] [place] [address] 10 Sep, 2012 [facility] [id number] [place] [address] 09 Feb, 2012 [facility] [address] [id number] [place] [address] Feb, [facility] [id number] [place] [address] Jan, [facility] [id number] [place] [address] Jan, [facility] [id number] [place] [address] Jan, [facility] [address] [id number] [place] [address] Dec, [facility] [id number] [place] [address] Dec, [facility] [id number] [place] [address] Dec, [facility] [id number] [place] [address] Dec, [facility] [id number] [place] [address] Dec, [facility] [id number] [place] [address] Nov, [facility] [id number] [place] [address] Nov, [facility] [id number] [place] [address] Nov, [facility] [id number] [place] [address] Nov, [facility] [id number] [place] [address] Nov, [facility] [id number] [place] [address] Nov, [facility] [id number] [place] [address] Nov, [facility] [id number] [place] [address] Nov, [facility] [id number] [place] [address] Nov, [facility] [id number] [place] [address] Nov, [facility] [id number] [place] [address] October, [facility] [id number] [place] [address] October, [facility] [id number] [place] [address] Sep, [facility] [id number] [place] [address] Sep, [facility] [id number] [place] [address] Sep, [facility] [id number] [place] [address] Sep, [facility] [id number] [place] [address] Sep, [facility] [id number] [place] [address] Aug, [facility] [id number] [place] [address] Aug, [facility] [id number] [place] [address] Jul, [facility] [id number] [place] [address] Jul, [facility] [id number] [place] [address] Jun, [facility] [id number] [place] [address] Jun, [facility] [id number] [place] [address] 05 May, 2012 [facility] [id number] [place] [address] May, [facility] [id number] [place] [address] May, [facility] [id number] [place] [address] May, [facility] [id number] [place] [address] Apr, [facility] [id number] [place] [address] Apr, [facility] [id number] [place] [address] Apr, [facility] [id number] [place] [address] Apr, [facility] [id number] [place] [address] Apr, [facility] [id number] [place] [address] Apr, [facility] [id number] [place] [address] Apr, [facility] [id number] [place] [address] Apr, [facility] [id number] [place] [address] Apr, [facility] [id number] [place] [address] 15 Mar, 2012 [facility] [id number] [place] [address] 15 Mar, 2012 [facility] [id number] [place] [address] 05 Feb, 2012 [facility] [id number] [place] [address] Jan, [facility] [id number] [place] [address] Jan, [facility] [id number] [place] [address] Dec, [facility] [id number] [place] [address] Nov, [facility] [id number] [place] [address] Nov, [facility] [id number] [place] [address] October, [facility] [id number] [place] [address] October, [facility] [id number] [place] [address] Sep, [facility] [id number] [place] [address] Sep, [facility] [id number] [place] [address] May, [facility] [id number] [place] [address] Apr, [facility] [id number] [place] [address] Apr, [facility] [id number] [place] [address] Apr, [facility] [id number] [place] [address] 15 Apr, 2011 [facility] [id number] [place] [address] 15 Apr, 2011 [facility] [id number] [place] [address] 10 Apr, 2011 [facility] [id number] [place] [address] 10 Apr, 2011 [facility] [id number] [place] [address] Apr, [facility] [id number] [place] [address] Mar, [facility] [id number] [place] [address] Mar, [facility] [id number] [place] [address] Mar, [facility] [id number] [place] [address] Mar, [facility] [id number] [place] [address] Mar, [facility] [id number] [place] [address] Mar, IMMUNIZATIONS No Known Immunizations SOCIAL HISTORY [...] tubal ligation Hospitalization History Mental floor at [facility]
--- OUTSIDE RECORDS SUMMARY | 2019-12-24 19:42 | XMS REPORT ---
Author Author Deann Trey Doctor Organization [facility] Address Unknown Phone Unavailable Care Team Providers Care Scrap Iron Loader Name Role Phone Migration, Doctor Unavailable Unavailable PROBLEMS Type Condition ICD9-CM Code UOS76-GB Code Onset Dates Condition S tatus SNOMED Code Problem Nondependent 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 Ac tive 525914192 Problem Other chronic pain G89.29 Active 1 58483832 Problem Unspecified epilepsy without mention of intractable ep ilepsy G40.909 Active 83570034 Problem Hyperlipidemia, unspecified E78.5 Ac tive 74343576 Problem Hypertension I10 Active 6273440 3 Problem Esophageal reflux K21.9 Active 23 2133477 Problem Rheumatoid arthritis M06.9 Active 68807419 Problem Cough R05 Active 12984763 Problem Acquired hypothyroidism E03.9 Active 376144794 Problem Unspecified open-angle glaucoma, stage unspecified H40.10X0 Feb, Active 22522420 Problem Presbyopia H52.4 Active 31640905 Problem Insomnia G47.00 Active 026663411 Problem Arthralgia M25.50 Active 73247758 Problem Thyroid nodule E04.1 Active 22667 5005 Problem Anxiety disorder, unspecified F41.9 Active 528299985 Problem Chronic tension-type headache, intractable G44.221 Active 308685846 Problem Neuropathy G62.9 Active 817135317 Problem Goiter E04.9 Active 1083313 Problem Multinodular goiter E04.2 Active 021804433 Problem Carpal tunnel syndrome of left wrist G56.02 Active 096473549322529 Problem Chronic obstructive pulmonary disease, unspecified COPD ty pe J44.9 Active 05670083 Problem BMI 40.0-44.9, adult Z68.41 Active 687917105 Problem Seasonal allergic rhinitis due to pollen J30.1 Active 10149617 Problem Depression F32.9 Active 94257327 Problem Essential hypertension I10 Active 41072591 Problem Depressive disorder F32.9 Active 05039923 Problem Right-sided low back pain without sciatica M54.5 Active 846548971 Problem Reactive airway disease with out complication, unspecified asthma severity, unspecified whether persistent J45.909 Active 712039832338 Problem Urge incontinence of urine N39.41 Act chen 32989408 Problem Abnormal laboratory test R89.9 Activ e 545207098 Problem COPD with exacerbation J44.1 Active 493400069 ALLERGIES No Information ENCOUNTERS Encounter Location Date Diagnosis [place] [address] [address] Sep, [place] [address] [address] Aug, Pelvic pain R10.2 ; Other specified bact erial agents as the cause of diseases classified elsewhere B96.89 and Acute vaginitis N76.0 [place] [address] [address] Apr, Bronchitis J40 [place] [address] [address] Apr, Acute gastritis without hemorrhage, unsp ecified gastritis type K29.00 [place] [address] [address] Mar, [place] [address] [address] Feb, [place] [address] [address] Feb, Mass of right side of neck R22.1 and Mul tinodular goiter E04.2 [facility] [address] [facility] [id number] [address] [place] [address] Jan, Bronchitis J40 [place] [address] [address] October, Acquired hypothyroidism E03.9 [place] [address] [address] October, Acute gastritis without hemorrhage, unsp ecified gastritis type K29.00 ; Epigastric pain R10.13 ; Essential hypertension I10 ; Screening for colon cancer Z12.11 and BMI 40.0-44.9, adult Z68.41 [place] [address] [address] October, [facility] [place] [address] [address] October, Chest pain R07.9 and Morbid obesity E66.01 [facility] [address] [address] Sep, Generalized abdominal pain R 10.84 ; Morbid obesity E66.01 ; Non-intractable vomiting with nausea, unspecified vomiting type R11.2 and Seasonal allergic rhinitis due to pollen J30.1 [facility] [place] [address] [address] Jul, COPD with exacerbation J44.1 ; Viral upper respiratory tract infection J06.9 and Morbid obesity E66.01 [facility] IN [place] [address] [address] Jun, Viral upper respiratory trac t infection J06.9 [place] [address] [address] Apr, Abnormal laboratory test R89.9 [place] [address] [address] Apr, Abnormal laboratory test R89.9 [place] [address] [address] Apr, Abnormal laboratory test R89.9 [place] [address] [address] Apr, [place] [address] [address] Apr, [place] [address] [address] Apr, Nonintractable episodic headache, unspec ified headache type R51 ; Urge incontinence of urine N39.41 ; BMI 40.0-44.9, adult Z68.41 ; Myalgia M79.10 and Acute cystitis without hematuria N30.[address] [address] 31 Mar, 2018 Nasal congestion R09.81 ; Low back pain M54.5 ; Reactive airway disease without complication, unspecified asthma severity, unspecified whether persistent J45.909 ; Other chronic pain G89.29 ; Acute cystitis with hematuria N30.01 and BMI 40.0-44.9, adult Z68.41 [place] [address] [address] Mar, Acute cystitis with hematuria N30.01 [facility] IN [facility] [address] [facility] [id number] [address] [place] [address] Mar, BMI 40.0-44.9, adult Z68.41 ; Acute cystitis with hematuria N30.01 ; Acute bilateral low back pain without sciatica M54.5 and Nausea R11.0 [place] [address] [address] Mar, Hypertension I10 ; Acquired hypothyroidi sm E03.9 ; Esophageal reflux K21.9 ; Chronic obstructive pulmonary disease, unspecified COPD type J44.9 and BMI 40.0-44.9, adult Z68.[address] [address] Mar, Hypertension I10 [address] [address] Nov, Hyperlipidemia, unspecified E78.[address] [address] October, Chest pain, unspecified type R07.9 and A cquired hypothyroidism E03.[address] [address] October, Chest pain, unspecified type R07.9 ; Fam demetrius history of coronary artery disease Z82.49 ; Carpal tunnel syndrome of left wrist G56.02 ; Hypertension I10 ; Esophageal reflux K21.9 ; Arthralgia M25.50 ; Acquired hypothyroidism E03.9 ; Cough R05 ; Nausea R11.0 ; Weight gain R63.5 and BMI 45.0-49.9, adult Z68.[address] [address] Jun, Acquired hypothyroidism E03.9 and Cough R05 [address] [address] May, [address] [address] Feb, Tarsal tunnel syndrome of both lower ext remities G57.53 and Neuropathy G62.[address] [address] Dec, Pleuritis R09.[address] [address] Nov, [address] [address] October, Arthralgia, unspecified joint M25.50 and Allergy, initial encounter T78.40XA [address] [address] October, [address] [address] October, Acute recurrent maxillary sinusitis J01. 01 and Arthralgia M25.[address] [address] Sep, Pharyngitis due to other organism J02.[address] [address] Aug, Acute nasopharyngitis J00 [address] [address] Aug, Multinodular goiter E04.[address] [address] Aug, Thyroid nodule E04.1 [place] [address] [address] Jul, Tarsal tunnel syndrome of both lower ext remities G57.[address] [address] Jun, Pneumonia due to infectious organism, un specified laterality, unspecified part of lung J18.9 [place] [address] [address] Jun, Bronchospasm with bronchitis, acute J20. [address] [address] May, Acute non-recurrent frontal sinusitis J0 1.[address] [address] May, Flat foot [pes planus] (acquired), left foot M21.42 ; Flat foot [pes planus] (acquired), right foot M21.41 and Neuropathy G62.[address] [address] Apr, Chronic tension-type headache, intractab le G44.221 ; Right lower quadrant abdominal pain R10.31 ; Cervicalgia M54.2 ; Acute gastritis without hemorrhage, unspecified gastritis type K29.00 and Hypertension I10 [address] [address] Mar, Depression F32.9 and Anxiety disorder, u nspecified F41.[address] [address] Feb, Depressive disorder F32.9 and Anxiety di sorder, unspecified F41.[address] [address] Jan, Dysuria R30.0 ; Lower abdominal pain R10 .30 ; Acute bilateral low back pain without sciatica M54.5 ; Nausea and vomiting, unspecified intactability, vomiting of unspecified type R11.2 ; Pain in right foot M79.671 and Pain of left foot M79.672 [place] [address] [address] Dec, Urinary tract infection, site not specif ied N39.0 [place] [address] [address] Dec, [place] [address] [address] Nov, [place] [address] [address] Nov, Dysuria R30.0 [place] [address] [address] Nov, Dysuria R30.0 and Acute cystitis with he maturia N30.01 [place] [address] [address] October, Nausea R11.0 [place] [address] [address] October, Thyroid nodule E04.1 ; Carpal tunnel syn drome, left upper limb G56.02 ; Carpal tunnel syndrome, right upper limb G56.01 and Constipation, unspecified constipation type K59.00 [place] [address] [address] October, [place] [address] [address] October, Thyroid nodule E04.1 [place] [address] [address] October, Cold thyroid nodule E04.1 [place] [address] [address] October, [place] [address] [address] Sep, Thyroid nodule E04.1 [place] [address] [address] Sep, Thyroid nodule E04.1 [place] [address] [address] Sep, Thyroid nodule E04.1 ; Hypertension I10 ; Esophageal reflux K21.9 and Hyperlipidemia, unspecified E78.5 [place] [address] [address] Aug, Other chronic pain G89.29 ; Sinusitis J3 2.9 and Hypertension I10 [place] [address] [address] Jul, [place] [address] [address] 15 Jul, 2015 [place] [address] [address] Jul, Insomnia G47.00 and Arthralgia M25.50 [place] [address] [address] 10 Jul, 2015 Depressive disorder F32.9 and Anxiety di sorder, unspecified F41.[address] [address] May, Right-sided low back pain without sciati ca M54.5 and Depression F32.9 [place] [address] [address] Apr, Hematuria R31.9 [place] [address] [address] Mar, Other chronic pain G89.29 [place] [address] [address] Mar, Other chronic pain G89.29 [place] [address] [address] Feb, [facility] [address] [place] [id number] [place] [address] Feb, Other chronic pain 338.29 ; Dysuria 788. 1 ; UTI (urinary tract infection) 599.0 ; Insomnia 780.52 ; Hot flashes 627.2 and Hypertension 401.9 [facility] [address] [place] [id number] [place] [address] Feb, Dysuria 788.1 [facility] [address] [place] [id number] [place] [address] Feb, [facility] [address] [place] [id number] [place] [address] Jan, [facility] [address] [place] [id number] [place] [address] Jan, [facility] [address] [place] [id number] [place] [address] Jan, Fibromyalgia 729.1 ; Hypertension 401.9 ; Dysthymia 300.4 and Hot flashes 627.2 [facility] [address] [place] [id number] [place] [address] Dec, [facility] [address] [place] [id number] [place] [address] Dec, [facility] [address] [place] [id number] [place] [address] Dec, [facility] [address] [place] [id number] [place] [address] Nov, Other chronic pain 338.29 [facility] [address] [place] [id number] [place] [address] October, [facility] [address] [place] [id number] [place] [address] October, [facility] [address] [place] [id number] [place] [address] Sep, [facility] [address] [place] [id number] [place] [address] Sep, [facility] [address] [id number] [place] [address] Aug, [facility] [address] [id number] [place] [address] Aug, [facility] [address] [id number] [place] [address] Aug, [facility] [address] [id number] [place] [address] Aug, [facility] [address] [id number] [place] [address] Aug, [facility] [address] [id number] [place] [address] Aug, [facility] [address] [id number] [place] [address] Aug, [facility] [address] [id number] [place] [address] Aug, [facility] [address] [id number] [place] [address] Aug, [facility] [address] [id number] [place] [address] Aug, [facility] [address] [id number] [place] [address] Aug, [facility] [address] [id number] [place] [address] Aug, [facility] [address] [id number] [place] [address] Aug, [facility] [address] [id number] [place] [address] Aug, [facility] [address] [id number] [place] [address] Jul, [facility] [address] [id number] [place] [address] Jul, [facility] [address] [id number] [place] [address] Jul, [facility] [address] [id number] [place] [address] Jul, [facility] [address] [id number] [place] [address] Jul, [facility] [address] [id number] [place] [address] Jul, [facility] [address] [id number] [place] [address] Jun, [facility] [address] [id number] [place] [address] Jun, [facility] [address] [id number] [place] [address] Jun, [facility] [address] [id number] [place] [address] Jun, [facility] [address] [id number] [place] [address] May, [facility] [address] [id number] [place] [address] May, [facility] [address] [id number] [place] [address] May, [facility] [address] [id number] [place] [address] May, [facility] [address] [id number] [place] [address] May, [facility] [address] [id number] [place] [address] May, [facility] [address] [id number] [place] [address] May, [facility] [address] [id number] [place] [address] May, [facility] [address] [id number] [place] [address] May, [facility] [address] [id number] [place] [address] May, [facility] [address] [id number] [place] [address] Apr, [facility] [address] [id number] [place] [address] Apr, [facility] [address] [id number] [place] [address] Apr, [facility] [address] [id number] [place] [address] Apr, [facility] [address] [id number] [place] [address] Apr, [facility] [address] [id number] [place] [address] Apr, [facility] [address] [id number] [place] [address] Apr, [facility] [address] [id number] [place] [address] Apr, [facility] [address] [id number] [place] [address] Apr, [facility] [address] [id number] [place] [address] Mar, [facility] [address] [id number] [place] [address] Mar, [facility] [address] [id number] [place] [address] Mar, [facility] [address] [id number] [place] [address] Mar, [facility] [address] [place] [id number] [place] [address] Mar, [facility] [address] [id number] [place] [address] Mar, [facility] [address] [id number] [place] [address] Mar, [facility] [address] [id number] [place] [address] 08 Mar, 2013 [facility] [address] [id number] [place] [address] 30 Sep, 2013 [facility] [address] [id number] [place] [address] 30 Sep, 2013 [facility] [address] [id number] [place] [address] 24 Sep, 2013 [facility] [address] [facility] [id number] [place] [address] 24 Sep, 2013 [facility] [address] [id number] [place] [address] 22 Feb, 2013 [facility] [address] [id number] [place] [address] 22 Feb, 2013 [facility] [address] [id number] [place] [address] 10 Sep, 2013 [facility] [address] [id number] [place] [address] 10 Sep, 2013 [facility] [address] [id number] [place] [address] 03 Sep, 2013 [facility] [address] [id number] [place] [address] 03 Sep, 2013 [facility] [address] [id number] [place] [address] 03 Sep, 2013 [facility] [address] [id number] [place] [address] 03 Sep, 2013 [facility] [address] [id number] [place] [address] 03 Sep, 2013 [facility] [address] [id number] [place] [address] 03 Sep, 2013 [facility] [address] [id number] [place] [address] 07 Jan, 2013 [facility] [address] [id number] [facility] [place] [address] Jan, [facility] [address] [id number] [facility] [place] [address] Dec, [facility] [address] [facility] [id number] [place] [address] Dec, [facility] [address] [id number] [facility] [place] [address] Dec, [facility] [address] [facility] [id number] [place] [address] Dec, 2013 [facility] [address] [facility] [id number] [facility] [place] [id number] Dec, [facility] [address] [id number] [place] [address] Dec, [facility] [address] [id number] [place] [address] Dec, [facility] [address] [id number] [place] [address] Dec, 2013 [facility] [address] [id number] [place] [address] Dec, [facility] [address] [id number] [place] [address] Dec, 2013 [facility] [address] [id number] [place] [address] Dec, 2013 [facility] [address] [id number] [place] [address] Dec, 2013 [facility] [address] [facility] [id number] [place] [address] Dec, 2013 [facility] [address] [id number] [place] [address] Dec, 2013 [facility] [address] [id number] [place] [address] Dec, 2013 [facility] [address] [id number] [place] [address] Dec, 2013 [facility] [address] [id number] [facility] [place] [address] Dec, [facility] [address] [facility] [id number] [place] [address] Dec, [facility] [address] [facility] [id number] [place] [address] Dec, [facility] [address] [id number] [place] [address] Nov, [facility] [address] [facility] [id number] [place] [address] Nov, [facility] [address] [facility] [id number] [place] [address] Nov, [facility] [address] [id number] [place] [address] Nov, [facility] [address] [id number] [place] [address] Nov, [facility] [address] [id number] [place] [address] Nov, [facility] [address] [id number] [place] [address] Nov, [facility] [address] [id number] [place] [address] Nov, [facility] [address] [id number] [place] [address] Nov, [facility] [address] [id number] [place] [address] October, [facility] [address] [facility] [id number] [place] [address] October, [facility] [address] [id number] [place] [address] October, [facility] [address] [id number] [place] [address] October, [facility] [address] [id number] [place] [address] October, [facility] [address] [id number] [place] [address] October, [facility] [address] [id number] [place] [address] October, [facility] [address] [id number] [place] [address] October, [facility] [address] [id number] [place] [address] Sep, [facility] [address] [facility] [id number] [place] [address] Sep, [facility] [address] [id number] [place] [address] Sep, [facility] [address] [id number] [place] [address] Sep, [facility] [address] [id number] [place] [address] Sep, [facility] [address] [id number] [place] [address] Sep, [facility] [address] [id number] [place] [address] Sep, [facility] [address] [id number] [place] [address] Aug, [facility] [address] [id number] [place] [address] Aug, [facility] [address] [id number] [place] [address] Aug, [facility] [address] [id number] [place] [address] Aug, [facility] [address] [id number] [place] [address] Aug, [facility] [address] [id number] [place] [address] Aug, [facility] [address] [id number] [place] [address] Jul, [facility] [address] [id number] [place] [address] Jul, [facility] [address] [id number] [place] [address] Jul, [facility] [address] [id number] [place] [address] Jul, [facility] [address] [id number] [place] [address] Jul, [facility] [address] [id number] [place] [address] Jul, [facility] [address] [id number] [place] [address] Jun, [facility] [address] [id number] [place] [address] Jun, [facility] [address] [id number] [place] [address] Jun, [facility] [address] [id number] [place] [address] Jun, [facility] [address] [id number] [place] [address] Jun, [facility] [address] [id number] [place] [address] Jun, [facility] [address] [id number] [place] [address] Jun, [facility] [address] [facility] [id number] [place] [address] Jun, [facility] [address] [id number] [place] [address] Jun, [facility] [address] [id number] [place] [address] Jun, [facility] [address] [id number] [place] [address] Jun, [facility] [address] [id number] [place] [address] 14 Jun, 2013 [facility] [address] [id number] [place] [address] 14 Jun, 2013 [facility] [address] [id number] [place] [address] 30 May, 2013 [facility] [address] [id number] [place] [address] 30 May, 2013 [facility] [address] [id number] [place] [address] 30 May, 2013 [facility] [address] [id number] [place] [address] 30 May, 2013 [facility] [address] [id number] [place] [address] 26 May, 2012 [facility] [address] [id number] [place] [address] 14 May, 2013 [facility] [address] [id number] [place] [address] 14 May, 2013 [facility] [address] [id number] [place] [address] 12 May, 2013 [facility] [address] [id number] [place] [address] 12 May, 2013 [facility] [address] [id number] [place] [address] 11 May, 2013 [facility] [address] [id number] [place] [address] 11 May, 2013 [facility] [address] [id number] [place] [address] 10 May, 2013 [facility] [address] [id number] [place] [address] 10 May, 2013 [facility] [address] [id number] [place] [address] 09 May, 2012 [facility] [address] [id number] [place] [address] 09 May, 2012 [facility] [address] [id number] [place] [address] 08 May, 2012 [facility] [address] [id number] [place] [address] May, 2012 [facility] [address] [id number] [place] [address] May, 2012 [facility] [address] [id number] [place] [address] May, 2012 [facility] [address] [id number] [place] [address] May, 2012 [facility] [address] [id number] [place] [address] May, 2012 [facility] [address] [id number] [place] [address] Apr, [facility] [address] [id number] [place] [address] Apr, [facility] [address] [id number] [place] [address] Apr, [facility] [address] [id number] [place] [address] Apr, [facility] [address] [id number] [place] [address] 08 Mar, 2013 [facility] [address] [id number] [place] [address] 23 Feb, 2012 [facility] [address] [id number] [place] [address] 16 Sep, 2012 [facility] [address] [id number] [place] [address] 13 Sep, 2012 [facility] [address] [id number] [place] [address] 10 Sep, 2012 [facility] [address] [id number] [place] [address] 09 Sep, 2012 [facility] [address] [id number] [place] [address] Feb, [facility] [address] [id number] [place] [address] Jan, [facility] [address] [facility] [id number] [place] [address] Jan, [facility] [address] [id number] [place] [address] Jan, [facility] [address] [id number] [place] [address] Dec, [facility] [address] [id number] [place] [address] Dec, [facility] [address] [id number] [place] [address] Dec, [facility] [address] [id number] [place] [address] Dec, [facility] [address] [id number] [place] [address] Dec, [facility] [address] [id number] [place] [address] Nov, [facility] [address] [id number] [place] [address] Nov, [facility] [address] [id number] [place] [address] Nov, [facility] [address] [id number] [place] [address] Nov, [facility] [address] [id number] [place] [address] Nov, [facility] [address] [id number] [place] [address] Nov, [facility] [address] [id number] [place] [address] Nov, [facility] [address] [id number] [place] [address] Nov, [facility] [address] [id number] [place] [address] Nov, [facility] [address] [id number] [place] [address] Nov, [facility] [address] [id number] [place] [address] October, [facility] [address] [id number] [place] [address] October, [facility] [address] [id number] [place] [address] Sep, [facility] [address] [id number] [place] [address] Sep, [facility] [address] [id number] [place] [address] Sep, [facility] [address] [id number] [place] [address] Sep, [facility] [address] [id number] [place] [address] Sep, [facility] [address] [id number] [place] [address] Aug, [facility] [address] [id number] [place] [address] Aug, [facility] [address] [id number] [place] [address] Jul, [facility] [address] [id number] [place] [address] Jul, [facility] [address] [id number] [place] [address] Jun, [facility] [address] [id number] [place] [address] Jun, [facility] [address] [id number] [place] [address] May, [facility] [address] [id number] [place] [address] May, [facility] [address] [id number] [place] [address] May, [facility] [address] [id number] [place] [address] May, [facility] [address] [id number] [place] [address] Apr, [facility] [address] [id number] [place] [address] Apr, [facility] [address] [id number] [place] [address] Apr, [facility] [address] [id number] [place] [address] Apr, [facility] [address] [id number] [place] [address] Apr, [facility] [address] [id number] [place] [address] Apr, [facility] [address] [id number] [place] [address] Apr, [facility] [address] [id number] [place] [address] Apr, [facility] [address] [id number] [place] [address] Apr, [facility] [address] [id number] [place] [address] 15 Mar, 2012 [facility] [address] [id number] [place] [address] 15 Mar, 2012 [facility] [address] [id number] [place] [address] 05 Feb, 2012 [facility] [address] [id number] [place] [address] 16 Jan, 2012 [facility] [address] [id number] [place] [address] Jan, [facility] [address] [id number] [place] [address] Dec, [facility] [address] [id number] [place] [address] Nov, [facility] [address] [id number] [place] [address] Nov, [facility] [address] [id number] [place] [address] October, [facility] [address] [id number] [place] [address] October, [facility] [address] [id number] [place] [address] Sep, [facility] [address] [id number] [place] [address] Sep, [facility] [address] [id number] [place] [address] May, [facility] [address] [id number] [place] [address] Apr, [facility] [address] [id number] [place] [address] Apr, [facility] [address] [id number] [place] [address] Apr, [facility] [address] [id number] [place] [address] 15 Apr, 2011 [facility] [address] [id number] [place] [address] 15 Apr, 2011 [facility] [address] [id number] [place] [address] Apr, [facility] [id number] [place] [address] 10 Apr, 2011 [facility] [address] [id number] [place] [address] Apr, [facility] [address] [id number] [place] [address] Mar, [facility] [address] [id number] [place] [address] Mar, [facility] [address] [id number] [place] [address] Mar[facility] [address] [id number] [place] [address] Mar, [facility] [address] [id number] [place] [address] Mar, [facility] [address] [id number] [place] [address] Mar, IMMUNIZATIONS No Known Immunizations SOCIAL HISTORY Never Assessed REASON FOR VISIT PLAN OF CARE VITAL SIGNS Height 62 in 2013-06-26 Weight 235.38 lbs 2013-06-26 Temperature 97.9 degrees Fahrenheit 2013-06-26 Heart Rate 86 bpm 2013-06-26 Respiratory Rate 20 2013-06-26 Blood pressure systolic 122 mmHg 2013-06-26 Blood pressure diastolic 84 mmHg 2013-06-26 MEDICATIONS Unknown Medications RESULTS No Results PROCEDURES Procedure Date Ordered Result Body Site URINE CULTURE/COLONY COUNT Jun 26, 2013 X-RAY EXAM OF RIBS Jun 26, 2013 URINALYSIS, AUTO, W/O SCOPE Jun 26, 2013 INSTRUCTIONS MEDICATIONS ADMINISTERED No Known Medications MEDICAL (GENERAL) HISTORY Type Description Date Medical History HTN Medical History Depression Medical History Arthritis Medical History COPD Surgical History Breast lump removed Surgical History Removal of cyst from ovary Surgical History cholecystectomy Surgical History Stomach surgeryx3 Surgical History tubal ligation Hospitalization History Mental floor at [facility]
--- OUTSIDE RECORDS SUMMARY | 2019-12-24 19:43 | XMS REPORT ---
Author Author Trey ANDRADE Organization [facility] Address [address] [place] [address] Care Team Providers Care Weigher Bulker Name Role Phone SURESH ANDRADE Unavailable PROBLEMS Type Condition ICD9-CM Code [id number] Code Onset Dates Condition S tatus SNOMED Code Problem Nondependent 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 Ac tive 186632310 Problem Other chronic pain G89.29 Active 1 47280125 Problem Unspecified epilepsy without mention of intractable ep ilepsy G40.909 Active 25519104 Problem Hyperlipidemia, unspecified E78.5 Ac tive 26838669 Problem Hypertension I10 Active 7180904 3 Problem Esophageal reflux K21.9 Active 23 4664173 Problem Rheumatoid arthritis M06.9 Active 77956475 Problem Cough R05 Active 58479901 Problem Acquired hypothyroidism E03.9 Active 285019769 Problem Unspecified open-angle glaucoma, stage unspecified H40.10X0 Feb, Active 31621941 Problem Presbyopia H52.4 Active 98622206 Problem Insomnia G47.00 Active 418726582 Problem Arthralgia M25.50 Active 37833391 Problem Thyroid nodule E04.1 Active 25091 5005 Problem Anxiety disorder, unspecified F41.9 Active 123455448 Problem Chronic tension-type headache, intractable G44.221 Active 565911669 Problem Neuropathy G62.9 Active 034478903 Problem Goiter E04.9 Active 7776140 Problem Multinodular goiter E04.2 Active 107167751 Problem Carpal tunnel syndrome of left wrist G56.02 Active [id number] Problem Chronic obstructive pulmonary disease, unspecified COPD ty pe J44.9 Active 14374618 Problem BMI 40.0-44.9, adult Z68.41 Active 537372103 Problem Seasonal allergic rhinitis due to pollen J30.1 Active 18450942 Problem Depression F32.9 Active 40403106 Problem Essential hypertension I10 Active 10819702 Problem Depressive disorder F32.9 Active 94989692 Problem Right-sided low back pain without sciatica M54.5 Active 828540424 Problem Reactive airway disease with out complication, unspecified asthma severity, unspecified whether persistent J45.909 Active 259392903748 Problem Urge incontinence of urine N39.41 Act chen 94442593 Problem Abnormal laboratory test R89.9 Activ e 995187098 Problem COPD with exacerbation J44.1 Active 172413821 ALLERGIES No Information ENCOUNTERS Encounter Location Date Diagnosis [place] [address] [address] Sep, [place] [address] [address] Aug, Pelvic pain R10.2 ; Other specified bact erial agents as the cause of diseases classified elsewhere B96.89 and Acute vaginitis N76.0 [place] [address] [address] Apr, Bronchitis J40 [place] [address] [address] Apr, Acute gastritis without hemorrhage, unsp ecified gastritis type K29.00 [place] [address] [address] Mar, [facility] [address] [address] Feb, [place] [address] [address] Feb, Mass of right side of neck R22.1 and Mul tinodular goiter E04.2 [facility] [address] [facility] [id number] [address] [place] [address] Jan, Bronchitis J40 [facility] [address] [address] October, Acquired hypothyroidism E03.9 [place] [address] [address] October, Acute gastritis without hemorrhage, unsp ecified gastritis type K29.00 ; Epigastric pain R10.13 ; Essential hypertension I10 ; Screening for colon cancer Z12.11 and BMI 40.0-44.9, adult Z68.41 [place] [address] [address] October, [facility] [place] [address] [address] October, Chest pain R07.9 and Morbid obesity E66.01 [facility] [address] [address] Sep, Generalized abdominal pain R 10.84 ; Morbid obesity E66.01 ; Non-intractable vomiting with nausea, unspecified vomiting type R11.2 and Seasonal allergic rhinitis due to pollen J30.1 [facility] [address] [address] Jul, COPD with exacerbation J44.1 ; Viral upper respiratory tract infection J06.9 and Morbid obesity E66.01 [facility] [place] [address] [address] Jun, Viral upper respiratory trac t infection J06.9 [place] [address] [address] Apr, Abnormal laboratory test R89.9 [place] [address] [address] Apr, Abnormal laboratory test R89.9 [place] [address] [address] Apr, Abnormal laboratory test R89.9 [place] [address] [address] Apr, [place] [address] [address] Apr, [place] [address] [address] Apr, Nonintractable episodic headache, unspec ified headache type R51 ; Urge incontinence of urine N39.41 ; BMI 40.0-44.9, adult Z68.41 ; Myalgia M79.10 and Acute cystitis without hematuria N30.00 [facility] [address] [address] Mar, Nasal congestion R09.81 ; Low back pain M54.5 ; Reactive airway disease without complication, unspecified asthma severity, unspecified whether persistent J45.909 ; Other chronic pain G89.29 ; Acute cystitis with hematuria N30.01 and BMI 40.0-44.9, adult Z68.41 [place] [address] [address] Mar, Acute cystitis with hematuria N30.01 [facility] [address] [facility] [id number] [address] [place] [address] Mar, BMI 40.0-44.9, adult Z68.41 ; Acute cystitis with hematuria N30.01 ; Acute bilateral low back pain without sciatica M54.5 and Nausea R11.0 [place] [address] [address] Mar, Hypertension I10 ; Acquired hypothyroidi sm E03.9 ; Esophageal reflux K21.9 ; Chronic obstructive pulmonary disease, unspecified COPD type J44.9 and BMI 40.0-44.9, adult Z68.41 [place] [address] [address] Mar, Hypertension I10 [place] [address] [address] Nov, Hyperlipidemia, unspecified E78.5 [place] [address] [address] October, Chest pain, unspecified type R07.9 and A cquired hypothyroidism E03.9 [place] [address] [address] October, Chest pain, unspecified type R07.9 ; Fam demetrius history of coronary artery disease Z82.49 ; Carpal tunnel syndrome of left wrist G56.02 ; Hypertension I10 ; Esophageal reflux K21.9 ; Arthralgia M25.50 ; Acquired hypothyroidism E03.9 ; Cough R05 ; Nausea R11.0 ; Weight gain R63.5 and BMI 45.0-49.9, adult Z68.[address] [address] Jun, Acquired hypothyroidism E03.9 and Cough R05 [address] [address] May, [address] [address] Feb, Tarsal tunnel syndrome of both lower ext remities G57.53 and Neuropathy G62.[address] [address] Dec, Pleuritis R09.[address] [address] Nov, [address] [address] October, Arthralgia, unspecified joint M25.50 and Allergy, initial encounter T78.40XA [address] [address] October, [address] [address] October, Acute recurrent maxillary sinusitis J01. 01 and Arthralgia M25.[address] [address] Sep, Pharyngitis due to other organism J02.[address] [address] Aug, Acute nasopharyngitis J00 [address] [place] [address] Aug, Multinodular goiter E04.2 [place] [address] [address] Aug, Thyroid nodule E04.1 [place] [address] [address] 17 Jul, 2016 Tarsal tunnel syndrome of both lower ext remities G57.53 [place] [address] [address] Jun, Pneumonia due to infectious organism, un specified laterality, unspecified part of lung J18.9 [place] [address] [address] Jun, Bronchospasm with bronchitis, acute J20. 9 [place] [address] [address] May, Acute non-recurrent frontal sinusitis J0 1.10 [place] [address] [address] May, Flat foot [pes planus] (acquired), left foot M21.42 ; Flat foot [pes planus] (acquired), right foot M21.41 and Neuropathy G62.9 [place] [address] [address] Apr, Chronic tension-type headache, intractab le G44.221 ; Right lower quadrant abdominal pain R10.31 ; Cervicalgia M54.2 ; Acute gastritis without hemorrhage, unspecified gastritis type K29.00 and Hypertension I10 [place] [address] [address] Mar, Depression F32.9 and Anxiety disorder, u nspecified F41.9 [place] [address] [address] Feb, Depressive disorder F32.9 and Anxiety di sorder, unspecified F41.9 [place] [address] [address] Jan, Dysuria R30.0 ; Lower abdominal pain R10 .30 ; Acute bilateral low back pain without sciatica M54.5 ; Nausea and vomiting, unspecified intactability, vomiting of unspecified type R11.2 ; Pain in right foot M79.671 and Pain of left foot M79.672 [place] [address] [address] Dec, Urinary tract infection, site not specif ied N39.0 [place] [address] [address] Dec, [place] [address] [address] Nov, [place] [address] [address] Nov, Dysuria R30.0 [place] [address] [address] Nov, Dysuria R30.0 and Acute cystitis with he maturia N30.01 [place] [address] [address] October, Nausea R11.0 [place] [address] [address] October, Thyroid nodule E04.1 ; Carpal tunnel syn drome, left upper limb G56.02 ; Carpal tunnel syndrome, right upper limb G56.01 and Constipation, unspecified constipation type K59.00 [place] [address] [address] October, [place] [address] [address] October, Thyroid nodule E04.1 [place] [address] [address] October, Cold thyroid nodule E04.1 [place] [address] [address] October, [place] [address] [address] Sep, Thyroid nodule E04.1 [place] [address] [address] Sep, Thyroid nodule E04.1 [place] [address] [address] Sep, Thyroid nodule E04.1 ; Hypertension I10 ; Esophageal reflux K21.9 and Hyperlipidemia, unspecified E78.5 [place] [address] [address] Aug, Other chronic pain G89.29 ; Sinusitis J3 2.9 and Hypertension I10 [place] [address] [address] 29 Jul, [address] [address] 15 Jul, 2015 [place] [address] [address] 10 Jul, 2015 Insomnia G47.00 and Arthralgia M25.[address] [address] 10 Jul, 2015 Depressive disorder F32.9 and Anxiety di sorder, unspecified F41.[address] [address] May, Right-sided low back pain without sciati ca M54.5 and Depression F32.[address] [address] Apr, Hematuria R31.[address] [address] Mar, Other chronic pain G89.[address] [address] Mar, Other chronic pain G89.29 [facility] [address] [place] [id number] [place] [address] Feb, [facility] [address] [address] Feb, Other chronic pain 338.29 ; Dysuria 788. 1 ; UTI (urinary tract infection) 599.0 ; Insomnia 780.52 ; Hot flashes 627.2 and Hypertension 401.9 [facility] [address] [address] Feb, Dysuria 788.1 [facility] [address] [address] Feb, [facility] [address] [address] Jan, [facility] [address] [address] Jan, [facility] [address] [address] Jan, Fibromyalgia 729.1 ; Hypertension 401.9 ; Dysthymia 300.4 and Hot flashes 627.2 [facility] [address] [place] [id number] [place] [address] Dec, [facility] [address] [address] Dec, [facility] [address] [address] Dec, [facility] [address] [address] Nov, Other chronic pain 338.29 [facility] [address] [address] October, [facility] [address] [address] October, [facility] [address] [address] Sep, [facility] [address] [id number] [place] [address] 13 Sep, 2014 [facility] [address] [id number] [place] [address] Aug, [facility] [address] [id number] [place] [address] Aug, [facility] [address] [id number] [place] [address] Aug, [facility] [address] [id number] [place] [address] Aug, [facility] [address] [id number] [place] [address] Aug, [facility] [address] [id number] [place] [address] Aug, [facility] [address] [id number] [place] [address] Aug, [facility] [address] [id number] [place] [address] Aug, [facility] [address] [id number] [place] [address] Aug, [facility] [address] [id number] [place] [address] Aug, [facility] [address] [id number] [place] [address] Aug, [facility] [address] [id number] [place] [address] Aug, [facility] [address] [id number] [place] [address] Aug, [facility] [address] [id number] [place] [address] Aug, [facility] [address] [id number] [place] [address] Jul, [facility] [address] [id number] [place] [address] Jul, [facility] [address] [id number] [place] [address] Jul, [facility] [address] [id number] [place] [address] Jul, [facility] [address] [id number] [place] [address] Jul, [facility] [address] [id number] [place] [address] Jul, [facility] [address] [id number] [place] [address] Jun, [facility] [address] [id number] [place] [address] Jun, [facility] [address] [id number] [place] [address] Jun, [facility] [address] [id number] [place] [address] Jun, [facility] [address] [id number] [place] [address] May, [facility] [address] [id number] [place] [address] May, [facility] [address] [id number] [place] [address] May, [facility] [address] [id number] [place] [address] May, [facility] [address] [id number] [place] [address] May, [facility] [address] [id number] [place] [address] May, [facility] [address] [id number] [place] [address] May, [facility] [address] [id number] [place] [address] May, [facility] [address] [id number] [place] [address] May, [facility] [address] [id number] [place] [address] May, [facility] [address] [id number] [place] [address] Apr, [facility] [address] [id number] [place] [address] Apr, [facility] [address] [id number] [place] [address] Apr, [facility] [address] [id number] [place] [address] Apr, [facility] [address] [id number] [place] [address] Apr, [facility] [address] [id number] [place] [address] Apr, [facility] [address] [id number] [place] [address] Apr, [facility] [address] [id number] [place] [address] Apr, [facility] [address] [id number] [place] [address] Apr, [facility] [address] [id number] [place] [address] Mar, [facility] [address] [id number] [place] [address] Mar, [facility] [address] [id number] [place] [address] Mar, [facility] [address] [place] [id number] [place] [address] Mar, [facility] [address] [id number] [place] [address] Mar, [facility] [address] [id number] [place] [address] Mar, [facility] [address] [facility] [id number] [place] [address] 08 Mar, 2013 [facility] [address] [id number] [place] [address] 08 Mar, 2013 [facility] [address] [id number] [place] [address] 30 Sep, 2013 [facility] [address] [id number] [place] [address] 30 Sep, 2013 [facility] [address] [facility] [id number] [place] [address] 24 Sep, 2013 [facility] [address] [id number] [place] [address] 24 Sep, 2013 [facility] [address] [id number] [place] [address] 22 Sep, 2013 [facility] [address] [id number] [place] [address] 22 Sep, 2013 [facility] [address] [id number] [place] [address] 10 Sep, 2013 [facility] [address] [id number] [place] [address] 10 Sep, 2013 [facility] [address] [id number] [place] [address] 03 Sep, 2013 [facility] [address] [id number] [place] [address] 03 Sep, 2013 [facility] [address] [id number] [place] [address] 03 Sep, 2013 [facility] [address] [id number] [place] [address] 03 Sep, 2013 [facility] [address] [id number] [place] [address] 03 Sep, 2013 [facility] [address] [id number] [place] [address] 03 Sep, 2013 [facility] [address] [id number] [place] [address] Jan, 2013 [facility] [address] [id number] [place] [address] Jan, [facility] [address] [facility] [id number] [place] [address] Dec, [facility] [address] [facility] [id number] [place] [address] Dec, [facility] [address] [facility] [id number] [place] [address] Dec, [facility] [address] [facility] [id number] [place] [address] Dec, [facility] [address] [facility] [id number] [place] [id number] Dec, [facility] [address] [id number] [place] [address] Dec, [facility] [address] [id number] [place] [address] Dec, [facility] [address] [facility] [id number] [place] [address] Dec, [facility] [address] [id number] [place] [address] Dec, [facility] [address] [id number] [place] [address] Dec, 2013 [facility] [address] [id number] [place] [address] Dec, 2013 [facility] [address] [facility] [id number] [place] [address] Dec, 2013 [facility] [address] [id number] [place] [address] Dec, 2013 [facility] [address] [id number] [place] [address] Dec, 2013 [facility] [address] [id number] [place] [address] Dec, 2013 [facility] [address] [id number] [place] [address] Dec, [facility] [address] [facility] [id number] [place] [address] Dec, [facility] [address] [facility] [id number] [place] [address] Dec, [facility] [address] [id number] [place] [address] Dec, [facility] [address] [facility] [id number] [place] [address] Nov, [facility] [address] [facility] [id number] [place] [address] Nov, [facility] [address] [id number] [place] [address] Nov, [facility] [address] [id number] [place] [address] Nov, [facility] [address] [id number] [place] [address] Nov, [facility] [address] [id number] [place] [address] Nov, [facility] [address] [id number] [place] [address] Nov, [facility] [address] [id number] [place] [address] Nov, [facility] [address] [id number] [place] [address] Nov, [facility] [address] [facility] [id number] [place] [address] October, [facility] [address] [id number] [place] [address] October, [facility] [address] [id number] [place] [address] October, [facility] [address] [id number] [place] [address] October, [facility] [address] [id number] [place] [address] October, [facility] [address] [id number] [place] [address] October, [facility] [address] [id number] [place] [address] October, [facility] [address] [id number] [place] [address] October, [facility] [address] [id number] [place] [address] Sep, [facility] [address] [id number] [place] [address] Sep, [facility] [address] [id number] [place] [address] Sep, [facility] [address] [id number] [place] [address] Sep, [facility] [address] [id number] [place] [address] Sep, [facility] [address] [id number] [place] [address] Sep, [facility] [address] [id number] [place] [address] Sep, [facility] [address] [id number] [place] [address] Aug, [facility] [address] [id number] [place] [address] Aug, [facility] [address] [id number] [place] [address] Aug, [facility] [address] [id number] [place] [address] Aug, [facility] [address] [id number] [place] [address] Aug, [facility] [address] [id number] [place] [address] Aug, [facility] [address] [facility] [id number] [place] [address] Jul, [facility] [address] [id number] [place] [address] Jul, [facility] [address] [id number] [place] [address] Jul, [facility] [address] [id number] [place] [address] Jul, [facility] [address] [id number] [place] [address] Jul, [facility] [address] [id number] [place] [address] Jul, [facility] [address] [id number] [place] [address] Jun, [facility] [address] [id number] [place] [address] Jun, [facility] [address] [id number] [place] [address] Jun, [facility] [address] [id number] [place] [address] Jun, [facility] [address] [id number] [place] [address] Jun, [facility] [address] [id number] [place] [address] Jun, [facility] [address] [id number] [place] [address] Jun, [facility] [address] [id number] [place] [address] Jun, [facility] [address] [id number] [place] [address] Jun, [facility] [address] [id number] [place] [address] Jun, [facility] [address] [id number] [place] [address] 14 Jun, 2013 [facility] [address] [id number] [place] [address] 14 Jun, 2013 [facility] [address] [id number] [place] [address] 14 Jun, 2013 [facility] [address] [id number] [place] [address] 30 May, 2013 [facility] [address] [id number] [place] [address] 30 May, 2013 [facility] [address] [id number] [place] [address] 30 May, 2013 [facility] [address] [id number] [place] [address] 30 May, 2013 [facility] [address] [id number] [place] [address] 26 May, 2012 [facility] [address] [id number] [place] [address] 14 May, 2013 [facility] [address] [id number] [place] [address] 14 May, 2013 [facility] [address] [id number] [place] [address] 12 May, 2013 [facility] [address] [id number] [place] [address] 12 May, 2013 [facility] [address] [id number] [place] [address] 11 May, 2013 [facility] [address] [id number] [place] [address] 11 May, 2013 [facility] [address] [id number] [place] [address] 10 May, 2013 [facility] [address] [id number] [place] [address] 10 May, 2013 [facility] [address] [id number] [place] [address] 09 May, 2012 [facility] [address] [id number] [place] [address] 09 May, 2012 [facility] [address] [id number] [place] [address] 08 May, 2012 [facility] [address] [id number] [place] [address] May, 2012 [facility] [address] [id number] [place] [address] May, 2012 [facility] [address] [id number] [place] [address] May, 2012 [facility] [address] [id number] [place] [address] May, 2012 [facility] [address] [id number] [place] [address] May, 2012 [facility] [address] [id number] [place] [address] Apr, [facility] [address] [id number] [place] [address] Apr, [facility] [address] [id number] [place] [address] Apr, [facility] [address] [id number] [place] [address] Apr, [facility] [address] [id number] [place] [address] 08 Mar, 2013 [facility] [address] [id number] [place] [address] 23 Sep, 2012 [facility] [address] [id number] [place] [address] 16 Sep, 2012 [facility] [address] [id number] [place] [address] 13 Sep, 2012 [facility] [address] [id number] [place] [address] 10 Sep, 2012 [facility] [address] [id number] [place] [address] 09 Feb, 2012 [facility] [address] [id number] [place] [address] Feb, [facility] [address] [id number] [place] [address] Jan, [facility] [address] [id number] [place] [address] Jan, [facility] [address] [id number] [place] [address] Jan, [facility] [address] [id number] [place] [address] Dec, [facility] [address] [id number] [place] [address] Dec, [facility] [address] [id number] [place] [address] Dec, [facility] [address] [id number] [place] [address] Dec, [facility] [address] [id number] [place] [address] Dec, [facility] [address] [id number] [place] [address] Nov, [facility] [address] [id number] [place] [address] Nov, [facility] [address] [id number] [place] [address] Nov, [facility] [address] [id number] [place] [address] Nov, [facility] [address] [id number] [place] [address] Nov, [facility] [address] [id number] [place] [address] Nov, [facility] [address] [id number] [place] [address] Nov, [facility] [address] [id number] [place] [address] Nov, [facility] [address] [id number] [place] [address] Nov, [facility] [address] [id number] [place] [address] Nov, [facility] [address] [id number] [place] [address] October, [facility] [address] [id number] [place] [address] October, [facility] [address] [id number] [place] [address] Sep, [facility] [address] [id number] [place] [address] Sep, [facility] [address] [id number] [place] [address] Sep, [facility] [address] [id number] [place] [address] Sep, [facility] [address] [id number] [place] [address] Sep, [facility] [address] [id number] [place] [address] Aug, [facility] [address] [id number] [place] [address] Aug, [facility] [address] [id number] [place] [address] Jul, [facility] [address] [id number] [place] [address] Jul, [facility] [address] [id number] [place] [address] Jun, [facility] [address] [id number] [place] [address] Jun, [facility] [address] [id number] [place] [address] 05 May, 2012 [facility] [address] [id number] [place] [address] May, [facility] [address] [id number] [place] [address] May, [facility] [address] [id number] [place] [address] May, [facility] [address] [id number] [place] [address] Apr, [facility] [address] [id number] [place] [address] Apr, [facility] [address] [id number] [place] [address] Apr, [facility] [address] [id number] [place] [address] Apr, [facility] [address] [id number] [place] [address] Apr, [facility] [address] [id number] [place] [address] Apr, [facility] [address] [id number] [place] [address] Apr, [facility] [address] [id number] [place] [address] Apr, [facility] [address] [id number] [place] [address] Apr, [facility] [address] [id number] [place] [address] 15 Mar, 2012 [facility] [address] [id number] [place] [address] 15 Mar, 2012 [facility] [address] [id number] [place] [address] 05 Feb, 2012 [facility] [address] [id number] [place] [address] Jan, [facility] [address] [id number] [place] [address] Jan, [facility] [address] [id number] [place] [address] Dec, [facility] [address] [id number] [place] [address] Nov, [facility] [address] [id number] [place] [address] Nov, [facility] [address] [id number] [place] [address] October, [facility] [address] [id number] [place] [address] October, [facility] [address] [id number] [place] [address] Sep, [facility] [address] [id number] [place] [address] Sep, [facility] [address] [id number] [place] [address] May, [facility] [address] [id number] [place] [address] Apr, [facility] [address] [id number] [place] [address] Apr, [facility] [address] [id number] [place] [address] Apr, [facility] [address] [id number] [place] [address] 15 Apr, 2011 [facility] [address] [id number] [place] [address] 15 Apr, 2011 [facility] [id number] [place] [address] 10 Apr, 2011 [facility] [address] [id number] [place] [address] 10 Apr, 2011 [facility] [address] [id number] [place] [address] Apr, [facility] [address] [id number] [place] [address] Mar, [facility] [address] [id number] [place] [address] Mar, [facility] [address] [id number] [place] [address] Mar, [facility] [address] [id number] [place] [address] Mar, [facility] [address] [id number] [place] [address] Mar, [facility] [address] [id number] [place] [address] Mar, IMMUNIZATIONS No Known Immunizations SOCIAL HISTORY [...] Hospitalization History Mental floor at [facility]
--- OUTSIDE RECORDS SUMMARY | 2019-12-24 19:43 | XMS REPORT ---
Author Author Trey ANDRADE Organization [facility] Address [address] [place] [address] Care Team Providers Care Home Administrator Name Role Phone SURESH ANDRADE Unavailable PROBLEMS Type Condition ICD9-CM Code HGP23-KG Code Onset Dates Condition S tatus SNOMED Code Problem Nondependent 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 Ac tive 975763009 Problem Other chronic pain G89.29 Active 1 90351992 Problem Unspecified epilepsy without mention of intractable ep ilepsy G40.909 Active 74577284 Problem Hyperlipidemia, unspecified E78.5 Ac tive 62532413 Problem Hypertension I10 Active 1383574 3 Problem Esophageal reflux K21.9 Active 23 8689741 Problem Rheumatoid arthritis M06.9 Active 21276552 Problem Cough R05 Active 10496743 Problem Acquired hypothyroidism E03.9 Active 848120024 Problem Unspecified open-angle glaucoma, stage unspecified H40.10X0 Feb, Active 45204541 Problem Presbyopia H52.4 Active 94774126 Problem Insomnia G47.00 Active 911597747 Problem Arthralgia M25.50 Active 18479102 Problem Thyroid nodule E04.1 Active 64755 5005 Problem Anxiety disorder, unspecified F41.9 Active 451684793 Problem Chronic tension-type headache, intractable G44.221 Active 247605635 Problem Neuropathy G62.9 Active 317626041 Problem Goiter E04.9 Active 9079743 Problem Multinodular goiter E04.2 Active 330541965 Problem Carpal tunnel syndrome of left wrist G56.02 Active 996791604769550 Problem Chronic obstructive pulmonary disease, unspecified COPD ty pe J44.9 Active 12266805 Problem BMI 40.0-44.9, adult Z68.41 Active 978885994 Problem Seasonal allergic rhinitis due to pollen J30.1 Active 45448406 Problem Depression F32.9 Active 29723920 Problem Essential hypertension I10 Active 54356108 Problem Depressive disorder F32.9 Active 83891786 Problem Right-sided low back pain without sciatica M54.5 Active 908458380 Problem Reactive airway disease with out complication, unspecified asthma severity, unspecified whether persistent J45.909 Active 618496596226 Problem Urge incontinence of urine N39.41 Act chen 27642888 Problem Abnormal laboratory test R89.9 Activ e 000125230 Problem COPD with exacerbation J44.1 Active 711301422 ALLERGIES No Information ENCOUNTERS Encounter Location Date Diagnosis [place] [address] [address] Sep, [place] [address] [address] Aug, Pelvic pain R10.2 ; Other specified bact erial agents as the cause of diseases classified elsewhere B96.89 and Acute vaginitis N76.0 [place] [address] [address] Apr, Bronchitis J40 [place] [address] [address] Apr, Acute gastritis without hemorrhage, unsp ecified gastritis type K29.00 [place] [address] [address] Mar, [facility] [address] [address] Feb, [place] [address] [address] Feb, Mass of right side of neck R22.1 and Mul tinodular goiter E04.2 [facility] [address] [facility] [id number] [address] [place] [address] Jan, Bronchitis J40 [facility] [address] [address] October, Acquired hypothyroidism E03.9 [place] [address] [address] October, Acute gastritis without hemorrhage, unsp ecified gastritis type K29.00 ; Epigastric pain R10.13 ; Essential hypertension I10 ; Screening for colon cancer Z12.11 and BMI 40.0-44.9, adult Z68.41 [place] [address] [address] October, [facility] [place] [address] [address] October, Chest pain R07.9 and Morbid obesity E66.01 [facility] IN [address] [address] Sep, Generalized abdominal pain R 10.84 ; Morbid obesity E66.01 ; Non-intractable vomiting with nausea, unspecified vomiting type R11.2 and Seasonal allergic rhinitis due to pollen J30.1 [facility] IN [address] [address] Jul, COPD with exacerbation J44.1 ; Viral upper respiratory tract infection J06.9 and Morbid obesity E66.01 [facility] IN [place] [address] [address] Jun, Viral upper respiratory trac t infection J06.9 [place] [address] [address] Apr, Abnormal laboratory test R89.9 [place] [address] [address] Apr, Abnormal laboratory test R89.9 [place] [address] [address] Apr, Abnormal laboratory test R89.9 [place] [address] [address] Apr, [place] [address] [address] Apr, [place] [address] [address] Apr, Nonintractable episodic headache, unspec ified headache type R51 ; Urge incontinence of urine N39.41 ; BMI 40.0-44.9, adult Z68.41 ; Myalgia M79.10 and Acute cystitis without hematuria N30.00 [facility] [address] [address] Mar, Nasal congestion R09.81 ; Low back pain M54.5 ; Reactive airway disease without complication, unspecified asthma severity, unspecified whether persistent J45.909 ; Other chronic pain G89.29 ; Acute cystitis with hematuria N30.01 and BMI 40.0-44.9, adult Z68.41 [place] [address] [address] Mar, Acute cystitis with hematuria N30.01 [facility] [address] [facility] [id number] [address] [place] [address] Mar, BMI 40.0-44.9, adult Z68.41 ; Acute cystitis with hematuria N30.01 ; Acute bilateral low back pain without sciatica M54.5 and Nausea R11.0 [place] [address] [address] Mar, Hypertension I10 ; Acquired hypothyroidi sm E03.9 ; Esophageal reflux K21.9 ; Chronic obstructive pulmonary disease, unspecified COPD type J44.9 and BMI 40.0-44.9, adult Z68.41 [place] [address] [address] Mar, Hypertension I10 [place] [address] [address] Nov, Hyperlipidemia, unspecified E78.5 [place] [address] [address] October, Chest pain, unspecified type R07.9 and A cquired hypothyroidism E03.9 [place] [address] [address] October, Chest pain, unspecified type R07.9 ; Fam demetrius history of coronary artery disease Z82.49 ; Carpal tunnel syndrome of left wrist G56.02 ; Hypertension I10 ; Esophageal reflux K21.9 ; Arthralgia M25.50 ; Acquired hypothyroidism E03.9 ; Cough R05 ; Nausea R11.0 ; Weight gain R63.5 and BMI 45.0-49.9, adult Z68.[address] [address] Jun, Acquired hypothyroidism E03.9 and Cough R05 [address] [address] May, [address] [address] Feb, Tarsal tunnel syndrome of both lower ext remities G57.53 and Neuropathy G62.[address] [address] Dec, Pleuritis R09.[address] [address] Nov, [address] [address] October, Arthralgia, unspecified joint M25.50 and Allergy, initial encounter T78.40XA [address] [address] October, [address] [address] October, Acute recurrent maxillary sinusitis J01. 01 and Arthralgia M25.[address] [address] Sep, Pharyngitis due to other organism J02.[address] [address] Aug, Acute nasopharyngitis J00 [address] [place] [address] Aug, Multinodular goiter E04.2 [place] [address] [address] Aug, Thyroid nodule E04.1 [place] [address] [address] 17 Jul, 2016 Tarsal tunnel syndrome of both lower ext remities G57.53 [place] [address] [address] Jun, Pneumonia due to infectious organism, un specified laterality, unspecified part of lung J18.9 [place] [address] [address] Jun, Bronchospasm with bronchitis, acute J20. 9 [place] [address] [address] May, Acute non-recurrent frontal sinusitis J0 1.10 [place] [address] [address] May, Flat foot [pes planus] (acquired), left foot M21.42 ; Flat foot [pes planus] (acquired), right foot M21.41 and Neuropathy G62.9 [place] [address] [address] Apr, Chronic tension-type headache, intractab le G44.221 ; Right lower quadrant abdominal pain R10.31 ; Cervicalgia M54.2 ; Acute gastritis without hemorrhage, unspecified gastritis type K29.00 and Hypertension I10 [place] [address] [address] Mar, Depression F32.9 and Anxiety disorder, u nspecified F41.9 [place] [address] [address] Feb, Depressive disorder F32.9 and Anxiety di sorder, unspecified F41.9 [place] [address] [address] Jan, Dysuria R30.0 ; Lower abdominal pain R10 .30 ; Acute bilateral low back pain without sciatica M54.5 ; Nausea and vomiting, unspecified intactability, vomiting of unspecified type R11.2 ; Pain in right foot M79.671 and Pain of left foot M79.672 [place] [address] [address] Dec, Urinary tract infection, site not specif ied N39.0 [place] [address] [address] Dec, [place] [address] [address] Nov, [place] [address] [address] Nov, Dysuria R30.0 [place] [address] [address] Nov, Dysuria R30.0 and Acute cystitis with he maturia N30.01 [place] [address] [address] October, Nausea R11.0 [place] [address] [address] October, Thyroid nodule E04.1 ; Carpal tunnel syn drome, left upper limb G56.02 ; Carpal tunnel syndrome, right upper limb G56.01 and Constipation, unspecified constipation type K59.00 [place] [address] [address] October, [place] [address] [address] October, Thyroid nodule E04.1 [place] [address] [address] October, Cold thyroid nodule E04.1 [place] [address] [address] October, [place] [address] [address] Sep, Thyroid nodule E04.1 [place] [address] [address] Sep, Thyroid nodule E04.1 [place] [address] [address] Sep, Thyroid nodule E04.1 ; Hypertension I10 ; Esophageal reflux K21.9 and Hyperlipidemia, unspecified E78.5 [place] [address] [address] Aug, Other chronic pain G89.29 ; Sinusitis J3 2.9 and Hypertension I10 [place] [address] [address] 29 Jul, [address] [address] 15 Jul, 2015 [place] [address] [address] 10 Jul, 2015 Insomnia G47.00 and Arthralgia M25.[address] [address] 10 Jul, 2015 Depressive disorder F32.9 and Anxiety di sorder, unspecified F41.[address] [address] May, Right-sided low back pain without sciati ca M54.5 and Depression F32.[address] [address] Apr, Hematuria R31.[address] [address] Mar, Other chronic pain G89.[address] [address] Mar, Other chronic pain G89.29 [facility] [address] [place] [id number] [place] [address] Feb, [facility] [address] [address] Feb, Other chronic pain 338.29 ; Dysuria 788. 1 ; UTI (urinary tract infection) 599.0 ; Insomnia 780.52 ; Hot flashes 627.2 and Hypertension 401.9 [facility] [address] [address] Feb, Dysuria 788.1 [facility] [address] [address] Feb, [facility] [address] [address] Jan, [facility] [address] [address] Jan, [facility] [address] [address] Jan, Fibromyalgia 729.1 ; Hypertension 401.9 ; Dysthymia 300.4 and Hot flashes 627.2 [facility] [address] [place] [id number] [place] [address] Dec, [facility] [address] [address] Dec, [facility] [address] [address] Dec, [facility] [address] [address] Nov, Other chronic pain 338.29 [facility] [address] [address] October, [facility] [address] [address] October, [facility] [address] [address] Sep, [facility] [address] [id number] [place] [address] 13 Sep, 2014 [facility] [address] [id number] [place] [address] Aug, [facility] [address] [id number] [place] [address] Aug, [facility] [address] [id number] [place] [address] Aug, [facility] [address] [id number] [place] [address] Aug, [facility] [address] [id number] [place] [address] Aug, [facility] [address] [id number] [place] [address] Aug, [facility] [address] [id number] [place] [address] Aug, [facility] [address] [id number] [place] [address] Aug, [facility] [address] [id number] [place] [address] Aug, [facility] [address] [id number] [place] [address] Aug, [facility] [address] [id number] [place] [address] Aug, [facility] [address] [id number] [place] [address] Aug, [facility] [address] [id number] [place] [address] Aug, [facility] [address] [id number] [place] [address] Aug, [facility] [address] [id number] [place] [address] Jul, [facility] [address] [id number] [place] [address] Jul, [facility] [address] [id number] [place] [address] Jul, [facility] [address] [id number] [place] [address] Jul, [facility] [address] [id number] [place] [address] Jul, [facility] [address] [id number] [place] [address] Jul, [facility] [address] [id number] [place] [address] Jun, [facility] [address] [id number] [place] [address] Jun, [facility] [address] [id number] [place] [address] Jun, [facility] [address] [id number] [place] [address] Jun, [facility] [address] [id number] [place] [address] May, [facility] [address] [id number] [place] [address] May, [facility] [address] [id number] [place] [address] May, [facility] [address] [id number] [place] [address] May, [facility] [address] [id number] [place] [address] May, [facility] [address] [id number] [place] [address] May, [facility] [address] [id number] [place] [address] May, [facility] [address] [id number] [place] [address] May, [facility] [address] [id number] [place] [address] May, [facility] [address] [id number] [place] [address] May, [facility] [address] [id number] [place] [address] Apr, [facility] [address] [id number] [place] [address] Apr, [facility] [address] [id number] [place] [address] Apr, [facility] [address] [id number] [place] [address] Apr, [facility] [address] [id number] [place] [address] Apr, [facility] [address] [id number] [place] [address] Apr, [facility] [address] [id number] [place] [address] Apr, [facility] [address] [id number] [place] [address] Apr, [facility] [address] [id number] [place] [address] Apr, [facility] [address] [id number] [place] [address] Mar, [facility] [address] [id number] [place] [address] Mar, [facility] [address] [id number] [place] [address] Mar, [facility] [address] [place] [id number] [place] [address] Mar, [facility] [address] [id number] [place] [address] Mar, [facility] [address] [id number] [place] [address] Mar, [facility] [address] [facility] [id number] [place] [address] 08 Mar, 2013 [facility] [address] [id number] [place] [address] 08 Mar, 2013 [facility] [address] [id number] [place] [address] 30 Sep, 2013 [facility] [address] [id number] [place] [address] 30 Sep, 2013 [facility] [address] [facility] [id number] [place] [address] 24 Sep, 2013 [facility] [address] [id number] [place] [address] 24 Sep, 2013 [facility] [address] [id number] [place] [address] 22 Sep, 2013 [facility] [address] [id number] [place] [address] 22 Sep, 2013 [facility] [address] [id number] [place] [address] 10 Sep, 2013 [facility] [address] [id number] [place] [address] 10 Sep, 2013 [facility] [address] [id number] [place] [address] 03 Sep, 2013 [facility] [address] [id number] [place] [address] 03 Sep, 2013 [facility] [address] [id number] [place] [address] 03 Sep, 2013 [facility] [address] [id number] [place] [address] 03 Sep, 2013 [facility] [address] [id number] [place] [address] 03 Sep, 2013 [facility] [address] [id number] [place] [address] 03 Sep, 2013 [facility] [address] [id number] [facility] [place] [address] Jan, 2013 [facility] [address] [id number] [place] [address] Jan, [facility] [address] [facility] [id number] [place] [address] Dec, [facility] [address] [facility] [id number] [place] [address] Dec, [facility] [address] [facility] [id number] [place] [address] Dec, [facility] [address] [facility] [id number] [place] [address] Dec, [facility] [address] [facility] [id number] [place] [id number] Dec, [facility] [address] [id number] [place] [address] Dec, [facility] [address] [id number] [place] [address] Dec, [facility] [address] [facility] [id number] [place] [address] Dec, [facility] [address] [id number] [place] [address] Dec, [facility] [address] [id number] [place] [address] Dec, 2013 [facility] [address] [id number] [place] [address] Dec, 2013 [facility] [address] [facility] [id number] [place] [address] Dec, 2013 [facility] [address] [id number] [place] [address] Dec, 2013 [facility] [address] [id number] [place] [address] Dec, 2013 [facility] [address] [id number] [place] [address] Dec, 2013 [facility] [address] [id number] [facility] [place] [address] Dec, [facility] [address] [facility] [id number] [place] [address] Dec, [facility] [address] [facility] [id number] [place] [address] Dec, [facility] [address] [id number] [place] [address] Dec, [facility] [address] [facility] [id number] [place] [address] Nov, [facility] [address] [facility] [id number] [place] [address] Nov, [facility] [address] [id number] [place] [address] Nov, [facility] [address] [id number] [place] [address] Nov, [facility] [address] [id number] [place] [address] Nov, [facility] [address] [id number] [place] [address] Nov, [facility] [address] [id number] [place] [address] Nov, [facility] [address] [id number] [place] [address] Nov, [facility] [address] [id number] [place] [address] Nov, [facility] [address] [facility] [id number] [place] [address] October, [facility] [address] [id number] [place] [address] October, [facility] [address] [id number] [place] [address] October, [facility] [address] [id number] [place] [address] October, [facility] [address] [id number] [place] [address] October, [facility] [address] [id number] [place] [address] October, [facility] [address] [id number] [place] [address] October, [facility] [address] [id number] [place] [address] October, [facility] [address] [id number] [place] [address] Sep, [facility] [address] [id number] [place] [address] Sep, [facility] [address] [id number] [place] [address] Sep, [facility] [address] [id number] [place] [address] Sep, [facility] [address] [id number] [place] [address] Sep, [facility] [address] [id number] [place] [address] Sep, [facility] [address] [id number] [place] [address] Sep, [facility] [address] [id number] [place] [address] Aug, [facility] [address] [id number] [place] [address] Aug, [facility] [address] [id number] [place] [address] Aug, [facility] [address] [id number] [place] [address] Aug, [facility] [address] [id number] [place] [address] Aug, [facility] [address] [id number] [place] [address] Aug, [facility] [address] [facility] [id number] [place] [address] Jul, [facility] [address] [id number] [place] [address] Jul, [facility] [address] [id number] [place] [address] Jul, [facility] [address] [id number] [place] [address] Jul, [facility] [address] [id number] [place] [address] Jul, [facility] [address] [id number] [place] [address] Jul, [facility] [address] [id number] [place] [address] Jun, [facility] [facility] [address] [id number] [place] [address] Jun, [facility] [address] [id number] [place] [address] Jun, [facility] [address] [id number] [place] [address] Jun, [facility] [address] [id number] [place] [address] Jun, [facility] [address] [id number] [place] [address] Jun, [facility] [address] [id number] [place] [address] Jun, [facility] [address] [id number] [place] [address] Jun, [facility] [address] [id number] [place] [address] Jun, [facility] [address] [id number] [place] [address] Jun, [facility] [address] [id number] [place] [address] 14 Jun, 2013 [facility] [address] [id number] [place] [address] 14 Jun, 2013 [facility] [address] [id number] [place] [address] 14 Jun, 2013 [facility] [address] [id number] [place] [address] 30 May, 2013 [facility] [address] [id number] [place] [address] 30 May, 2013 [facility] [address] [id number] [place] [address] 30 May, 2013 [facility] [address] [id number] [place] [address] 30 May, 2013 [facility] [address] [id number] [place] [address] 26 May, 2012 [facility] [address] [id number] [place] [address] 14 May, 2013 [facility] [address] [id number] [place] [address] 14 May, 2013 [facility] [address] [id number] [place] [address] 12 May, 2013 [facility] [address] [id number] [place] [address] 12 May, 2013 [facility] [address] [id number] [place] [address] 11 May, 2013 [facility] [address] [id number] [place] [address] 11 May, 2013 [facility] [address] [id number] [place] [address] 10 May, 2013 [facility] [address] [id number] [place] [address] 10 May, 2013 [facility] [address] [id number] [place] [address] 09 May, 2012 [facility] [address] [id number] [place] [address] 09 May, 2012 [facility] [address] [id number] [place] [address] 08 May, 2012 [facility] [address] [id number] [place] [address] May, 2012 [facility] [address] [id number] [place] [address] May, 2012 [facility] [address] [id number] [place] [address] May, 2012 [facility] [address] [id number] [place] [address] May, 2012 [facility] [address] [id number] [place] [address] May, 2012 [facility] [address] [id number] [place] [address] Apr, [facility] [address] [id number] [place] [address] Apr, [facility] [address] [id number] [place] [address] Apr, [facility] [address] [id number] [place] [address] Apr, [facility] [address] [id number] [place] [address] 08 Mar, 2013 [facility] [address] [id number] [place] [address] 23 Sep, 2012 [facility] [address] [id number] [place] [address] 16 Sep, 2012 [facility] [address] [id number] [place] [address] 13 Sep, 2012 [facility] [address] [id number] [place] [address] 10 Sep, 2012 [facility] [address] [id number] [place] [address] 09 Feb, 2012 [facility] [id number] [place] [address] Feb, [facility] [address] [id number] [place] [address] Jan, [facility] [address] [id number] [place] [address] Jan, [facility] [address] [id number] [place] [address] Jan, [facility] [id number] [place] [address] Dec, [facility] [address] [id number] [place] [address] Dec, [facility] [address] [id number] [place] [address] Dec, [facility] [address] [id number] [place] [address] Dec, [facility] [address] [id number] [place] [address] Dec, [facility] [address] [id number] [place] [address] Nov, [facility] [address] [id number] [place] [address] Nov, [facility] [address] [id number] [place] [address] Nov, [facility] [address] [id number] [place] [address] Nov, [facility] [address] [id number] [place] [address] Nov, [facility] [address] [id number] [place] [address] Nov, [facility] [address] [id number] [place] [address] Nov, [facility] [address] [id number] [place] [address] Nov, [facility] [address] [id number] [place] [address] Nov, [facility] [address] [id number] [place] [address] Nov, [facility] [address] [id number] [place] [address] October, [facility] [address] [id number] [place] [address] October, [facility] [address] [id number] [place] [address] Sep, [facility] [address] [id number] [place] [address] Sep, [facility] [address] [id number] [place] [address] Sep, [facility] [address] [id number] [place] [address] Sep, [facility] [address] [id number] [place] [address] Sep, [facility] [address] [id number] [place] [address] Aug, [facility] [address] [id number] [place] [address] Aug, [facility] [address] [id number] [place] [address] Jul, [facility] [address] [id number] [place] [address] Jul, [facility] [address] [id number] [place] [address] Jun, [facility] [address] [id number] [place] [address] Jun, [facility] [address] [id number] [place] [address] 05 May, 2012 [facility] [address] [id number] [place] [address] May, [facility] [address] [id number] [place] [address] May, [facility] [address] [id number] [place] [address] May, [facility] [address] [id number] [place] [address] Apr, [facility] [address] [id number] [place] [address] Apr, [facility] [address] [id number] [place] [address] Apr, [facility] [address] [id number] [place] [address] Apr, [facility] [address] [id number] [place] [address] Apr, [facility] [address] [id number] [place] [address] Apr, [facility] [address] [id number] [place] [address] Apr, [facility] [address] [id number] [place] [address] Apr, [facility] [address] [id number] [place] [address] Apr, [facility] [address] [id number] [place] [address] 15 Mar, 2012 [facility] [address] [id number] [place] [address] 15 Mar, 2012 [facility] [address] [id number] [place] [address] 05 Feb, 2012 [facility] [address] [id number] [place] [address] Jan, [facility] [address] [id number] [place] [address] Jan, [facility] [address] [id number] [place] [address] Dec, [facility] [address] [id number] [place] [address] Nov, [facility] [address] [id number] [place] [address] Nov, [facility] [address] [id number] [place] [address] October, [facility] [address] [id number] [place] [address] October, [facility] [address] [id number] [place] [address] Sep, [facility] [address] [id number] [place] [address] Sep, [facility] [address] [id number] [place] [address] May, [facility] [address] [id number] [place] [address] Apr, [facility] [address] [id number] [place] [address] Apr, [facility] [address] [id number] [place] [address] Apr, [facility] [address] [id number] [place] [address] 15 Apr, 2011 [facility] [address] [id number] [place] [address] 15 Apr, 2011 [facility] [id number] [place] [address] 10 Apr, 2011 [facility] [address] [id number] [place] [address] 10 Apr, 2011 [facility] [address] [id number] [place] [address] Apr, [facility] [address] [id number] [place] [address] Mar, [facility] [address] [id number] [place] [address] Mar, [facility] [address] [id number] [place] [address] Mar, [facility] [address] [id number] [place] [address] Mar, [facility] [address] [id number] [place] [address] Mar, [facility] [address] [id number] [place] [address] Mar, IMMUNIZATIONS No Known Immunizations SOCIAL HISTORY [...] tubal ligation Hospitalization History Mental floor at [facility]
--- OUTSIDE RECORDS SUMMARY | 2019-12-24 19:43 | XMS REPORT ---
Author Author Trey ANDRADE Organization [facility] Address [address] [place] [address] Care Team Providers Care Vocational Teacher Name Role Phone SURESH ANDRADE Unavailable PROBLEMS Type Condition ICD9-CM Code [id number] Code Onset Dates Condition S tatus SNOMED Code Problem Nondependent 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 Ac tive 497409179 Problem Other chronic pain G89.29 Active 1 03519779 Problem Unspecified epilepsy without mention of intractable ep ilepsy G40.909 Active 11705091 Problem Hyperlipidemia, unspecified E78.5 Ac tive 28178013 Problem Hypertension I10 Active 1722509 3 Problem Esophageal reflux K21.9 Active 23 1430512 Problem Rheumatoid arthritis M06.9 Active 32916857 Problem Cough R05 Active 76529261 Problem Acquired hypothyroidism E03.9 Active 963216953 Problem Unspecified open-angle glaucoma, stage unspecified H40.10X0 Feb, Active 86174787 Problem Presbyopia H52.4 Active 24173541 Problem Insomnia G47.00 Active 046730487 Problem Arthralgia M25.50 Active 04837209 Problem Thyroid nodule E04.1 Active 77088 5005 Problem Anxiety disorder, unspecified F41.9 Active 255314387 Problem Chronic tension-type headache, intractable G44.221 Active 464573226 Problem Neuropathy G62.9 Active 359522436 Problem Goiter E04.9 Active 4526444 Problem Multinodular goiter E04.2 Active 669054791 Problem Carpal tunnel syndrome of left wrist G56.02 Active 406327726233326 Problem Chronic obstructive pulmonary disease, unspecified COPD ty pe J44.9 Active 95928714 Problem BMI 40.0-44.9, adult Z68.41 Active 945110036 Problem Seasonal allergic rhinitis due to pollen J30.1 Active 11181874 Problem Depression F32.9 Active 90312754 Problem Essential hypertension I10 Active 78935473 Problem Depressive disorder F32.9 Active 00087448 Problem Right-sided low back pain without sciatica M54.5 Active 431644667 Problem Reactive airway disease with out complication, unspecified asthma severity, unspecified whether persistent J45.909 Active 416570040370 Problem Urge incontinence of urine N39.41 Act chen 21045974 Problem Abnormal laboratory test R89.9 Activ e 261892970 Problem COPD with exacerbation J44.1 Active 310392003 ALLERGIES No Information ENCOUNTERS Encounter Location Date Diagnosis [place] [address] [address] Sep, [place] [address] [address] Aug, Pelvic pain R10.2 ; Other specified bact erial agents as the cause of diseases classified elsewhere B96.89 and Acute vaginitis N76.0 [place] [address] [address] Apr, Bronchitis J40 [place] [address] [address] Apr, Acute gastritis without hemorrhage, unsp ecified gastritis type K29.00 [place] [address] [address] Mar, [facility] [address] [address] Feb, [place] [address] [address] Feb, Mass of right side of neck R22.1 and Mul tinodular goiter E04.2 [facility] [address] [facility] [id number] [address] [place] [address] Jan, [address] [facility] [address] [address] October, Acquired hypothyroidism E03.9 [place] [address] [address] October, Acute gastritis without hemorrhage, unsp ecified gastritis type K29.00 ; Epigastric pain R10.13 ; Essential hypertension I10 ; Screening for colon cancer Z12.11 and BMI 40.0-44.9, adult Z68.41 [place] [address] [address] October, [facility] [place] [address] [address] October, Chest pain R07.9 and Morbid obesity E66.01 [facility] [address] [address] Sep, Generalized abdominal pain R 10.84 ; Morbid obesity E66.01 ; Non-intractable vomiting with nausea, unspecified vomiting type R11.2 and Seasonal allergic rhinitis due to pollen J30.1 [facility] [address] [address] Jul, COPD with exacerbation J44.1 ; Viral upper respiratory tract infection J06.9 and Morbid obesity E66.01 [facility] [place] [address] [address] Jun, Viral upper respiratory trac t infection J06.9 [place] [address] [address] Apr, Abnormal laboratory test R89.9 [place] [address] [address] Apr, Abnormal laboratory test R89.9 [place] [address] [address] Apr, Abnormal laboratory test R89.9 [place] [address] [address] Apr, [place] [address] [address] Apr, [place] [address] [address] Apr, Nonintractable episodic headache, unspec ified headache type R51 ; Urge incontinence of urine N39.41 ; BMI 40.0-44.9, adult Z68.41 ; Myalgia M79.10 and Acute cystitis without hematuria N30.00 [facility] [address] [address] Mar, Nasal congestion R09.81 ; Low back pain M54.5 ; Reactive airway disease without complication, unspecified asthma severity, unspecified whether persistent J45.909 ; Other chronic pain G89.29 ; Acute cystitis with hematuria N30.01 and BMI 40.0-44.9, adult Z68.41 [place] [address] [address] Mar, Acute cystitis with hematuria N30.01 [facility] [address] [facility] [id number] [address] [place] [address] Mar, BMI 40.0-44.9, adult Z68.41 ; Acute cystitis with hematuria N30.01 ; Acute bilateral low back pain without sciatica M54.5 and Nausea R11.0 [place] [address] [address] Mar, Hypertension I10 ; Acquired hypothyroidi sm E03.9 ; Esophageal reflux K21.9 ; Chronic obstructive pulmonary disease, unspecified COPD type J44.9 and BMI 40.0-44.9, adult Z68.41 [place] [address] [address] Mar, Hypertension I10 [place] [address] [address] Nov, Hyperlipidemia, unspecified E78.5 [place] [address] [address] October, Chest pain, unspecified type R07.9 and A cquired hypothyroidism E03.9 [place] [address] [address] October, Chest pain, unspecified type R07.9 ; Fam demetrius history of coronary artery disease Z82.49 ; Carpal tunnel syndrome of left wrist G56.02 ; Hypertension I10 ; Esophageal reflux K21.9 ; Arthralgia M25.50 ; Acquired hypothyroidism E03.9 ; Cough R05 ; Nausea R11.0 ; Weight gain R63.5 and BMI 45.0-49.9, adult Z68.[address] [address] Jun, Acquired hypothyroidism E03.9 and Cough R05 [address] [address] May, [address] [address] Feb, Tarsal tunnel syndrome of both lower ext remities G57.53 and Neuropathy G62.[address] [address] Dec, Pleuritis R09.[address] [address] Nov, [address] [address] October, Arthralgia, unspecified joint M25.50 and Allergy, initial encounter T78.40XA [address] [address] October, [address] [address] October, Acute recurrent maxillary sinusitis J01. 01 and Arthralgia M25.[address] [address] Sep, Pharyngitis due to other organism J02.[address] [address] Aug, Acute nasopharyngitis J00 [address] [place] [address] Aug, Multinodular goiter E04.2 [place] [address] [address] Aug, Thyroid nodule E04.1 [place] [address] [address] 17 Jul, 2016 Tarsal tunnel syndrome of both lower ext remities G57.53 [place] [address] [address] Jun, Pneumonia due to infectious organism, un specified laterality, unspecified part of lung J18.9 [place] [address] [address] Jun, Bronchospasm with bronchitis, acute J20. 9 [place] [address] [address] May, Acute non-recurrent frontal sinusitis J0 1.10 [place] [address] [address] May, Flat foot [pes planus] (acquired), left foot M21.42 ; Flat foot [pes planus] (acquired), right foot M21.41 and Neuropathy G62.9 [place] [address] [address] Apr, Chronic tension-type headache, intractab le G44.221 ; Right lower quadrant abdominal pain R10.31 ; Cervicalgia M54.2 ; Acute gastritis without hemorrhage, unspecified gastritis type K29.00 and Hypertension I10 [place] [address] [address] Mar, Depression F32.9 and Anxiety disorder, u nspecified F41.9 [place] [address] [address] Feb, Depressive disorder F32.9 and Anxiety di sorder, unspecified F41.9 [place] [address] [address] Jan, Dysuria R30.0 ; Lower abdominal pain R10 .30 ; Acute bilateral low back pain without sciatica M54.5 ; Nausea and vomiting, unspecified intactability, vomiting of unspecified type R11.2 ; Pain in right foot M79.671 and Pain of left foot M79.672 [place] [address] [address] Dec, Urinary tract infection, site not specif ied N39.0 [place] [address] [address] Dec, [place] [address] [address] Nov, [place] [address] [address] Nov, Dysuria R30.0 [place] [address] [address] Nov, Dysuria R30.0 and Acute cystitis with he maturia N30.01 [place] [address] [address] October, Nausea R11.0 [place] [address] [address] October, Thyroid nodule E04.1 ; Carpal tunnel syn drome, left upper limb G56.02 ; Carpal tunnel syndrome, right upper limb G56.01 and Constipation, unspecified constipation type K59.00 [place] [address] [address] October, [place] [address] [address] October, Thyroid nodule E04.1 [place] [address] [address] October, Cold thyroid nodule E04.1 [place] [address] [address] October, [place] [address] [address] Sep, Thyroid nodule E04.1 [place] [address] [address] Sep, Thyroid nodule E04.1 [place] [address] [address] Sep, Thyroid nodule E04.1 ; Hypertension I10 ; Esophageal reflux K21.9 and Hyperlipidemia, unspecified E78.5 [place] [address] [address] Aug, Other chronic pain G89.29 ; Sinusitis J3 2.9 and Hypertension I10 [place] [address] [address] 29 Jul, [address] [address] 15 Jul, 2015 [place] [address] [address] 10 Jul, 2015 Insomnia G47.00 and Arthralgia M25.[address] [address] 10 Jul, 2015 Depressive disorder F32.9 and Anxiety di sorder, unspecified F41.[address] [address] May, Right-sided low back pain without sciati ca M54.5 and Depression F32.[address] [address] Apr, Hematuria R31.[address] [address] Mar, Other chronic pain G89.[address] [address] Mar, Other chronic pain G89.29 [facility] [address] [place] [id number] [place] [address] Feb, [facility] [address] [address] Feb, Other chronic pain 338.29 ; Dysuria 788. 1 ; UTI (urinary tract infection) 599.0 ; Insomnia 780.52 ; Hot flashes 627.[address] [facility] [address] [address] Feb, Dysuria 788.1 [facility] [address] [address] Feb, [facility] [address] [address] Jan, [facility] [address] [address] Jan, [facility] [address] [address] Jan, Fibromyalgia 729.1 ; Hypertension 401.9 ; Dysthymia 300.[address] [facility] [address] [place] [id number] [place] [address] Dec, [facility] [address] [address] Dec, [facility] [address] [address] Dec, [facility] [address] [address] Nov, Other chronic pain 338.29 [facility] [address] [address] October, [facility] [address] [address] October, [facility] [address] [address] Sep, [facility] [address] [id number] [place] [address] 13 Sep, 2014 [facility] [address] [id number] [place] [address] Aug, [facility] [address] [id number] [place] [address] Aug, [facility] [address] [id number] [place] [address] Aug, [facility] [address] [id number] [place] [address] Aug, [facility] [address] [id number] [place] [address] Aug, [facility] [address] [id number] [place] [address] Aug, [facility] [address] [id number] [place] [address] Aug, [facility] [address] [id number] [place] [address] Aug, [facility] [address] [id number] [place] [address] Aug, [facility] [address] [id number] [place] [address] Aug, [facility] [address] [id number] [place] [address] Aug, [facility] [address] [id number] [place] [address] Aug, [facility] [address] [id number] [place] [address] Aug, [facility] [address] [id number] [place] [address] Aug, [facility] [address] [id number] [place] [address] Jul, [facility] [address] [id number] [place] [address] Jul, [facility] [address] [id number] [place] [address] Jul, [facility] [address] [id number] [place] [address] Jul, [facility] [address] [id number] [place] [address] Jul, [facility] [address] [id number] [place] [address] Jul, [facility] [address] [id number] [place] [address] Jun, [facility] [address] [id number] [place] [address] Jun, [facility] [address] [id number] [place] [address] Jun, [facility] [address] [id number] [place] [address] Jun, [facility] [address] [id number] [place] [address] May, [facility] [address] [id number] [place] [address] May, [facility] [address] [id number] [place] [address] May, [facility] [address] [id number] [place] [address] May, [facility] [address] [id number] [place] [address] May, [facility] [address] [id number] [place] [address] May, [facility] [address] [id number] [place] [address] May, [facility] [address] [id number] [place] [address] May, [facility] [address] [id number] [place] [address] May, [facility] [address] [id number] [place] [address] May, [facility] [address] [id number] [place] [address] Apr, [facility] [address] [id number] [place] [address] Apr, [facility] [address] [id number] [place] [address] Apr, [facility] [address] [id number] [place] [address] Apr, [facility] [address] [id number] [place] [address] Apr, [facility] [address] [id number] [place] [address] Apr, [facility] [address] [id number] [place] [address] Apr, [facility] [address] [id number] [place] [address] Apr, [facility] [address] [id number] [place] [address] Apr, [facility] [address] [id number] [place] [address] Mar, [facility] [address] [id number] [place] [address] Mar, [facility] [address] [id number] [place] [address] Mar, [facility] [address] [place] [id number] [place] [address] Mar, [facility] [address] [id number] [place] [address] Mar, [facility] [address] [id number] [place] [address] Mar, [facility] [address] [facility] [id number] [place] [address] 08 Mar, 2013 [facility] [address] [id number] [place] [address] 08 Mar, 2013 [facility] [address] [id number] [place] [address] 30 Sep, 2013 [facility] [address] [id number] [place] [address] 30 Sep, 2013 [facility] [address] [facility] [id number] [place] [address] 24 Sep, 2013 [facility] [address] [id number] [place] [address] 24 Sep, 2013 [facility] [address] [id number] [place] [address] 22 Sep, 2013 [facility] [address] [id number] [place] [address] 22 Sep, 2013 [facility] [address] [id number] [place] [address] 10 Sep, 2013 [facility] [address] [id number] [place] [address] 10 Sep, 2013 [facility] [address] [id number] [place] [address] 03 Sep, 2013 [facility] [address] [id number] [place] [address] 03 Sep, 2013 [facility] [address] [id number] [place] [address] 03 Sep, 2013 [facility] [address] [id number] [place] [address] 03 Sep, 2013 [facility] [address] [id number] [place] [address] 03 Sep, 2013 [facility] [address] [id number] [place] [address] 03 Sep, 2013 [facility] [address] [id number] [place] [address] Jan, 2013 [facility] [address] [id number] [place] [address] Jan, [facility] [address] [facility] [id number] [place] [address] Dec, [facility] [address] [facility] [id number] [place] [address] Dec, [facility] [address] [facility] [id number] [place] [address] Dec, [facility] [address] [facility] [id number] [place] [address] Dec, [facility] [address] [facility] [id number] [place] [id number] Dec, [facility] [address] [id number] [place] [address] Dec, [facility] [address] [id number] [place] [address] Dec, [facility] [address] [facility] [id number] [place] [address] Dec, [facility] [address] [id number] [place] [address] Dec, [facility] [address] [id number] [place] [address] Dec, 2013 [facility] [address] [id number] [place] [address] Dec, 2013 [facility] [address] [facility] [id number] [place] [address] Dec, 2013 [facility] [address] [id number] [place] [address] Dec, 2013 [facility] [address] [id number] [place] [address] Dec, 2013 [facility] [address] [id number] [place] [address] Dec, 2013 [facility] [address] [id number] [place] [address] Dec, [facility] [address] [facility] [id number] [place] [address] Dec, [facility] [address] [facility] [id number] [place] [address] Dec, [facility] [address] [id number] [place] [address] Dec, [facility] [address] [facility] [id number] [place] [address] Nov, [facility] [address] [facility] [id number] [place] [address] Nov, [facility] [address] [id number] [place] [address] Nov, [facility] [address] [id number] [place] [address] Nov, [facility] [address] [id number] [place] [address] Nov, [facility] [address] [id number] [place] [address] Nov, [facility] [address] [id number] [place] [address] Nov, [facility] [address] [id number] [place] [address] Nov, [facility] [address] [id number] [place] [address] Nov, [facility] [address] [facility] [id number] [place] [address] October, [facility] [address] [id number] [place] [address] October, [facility] [address] [id number] [place] [address] October, [facility] [address] [id number] [place] [address] October, [facility] [address] [id number] [place] [address] October, [facility] [address] [id number] [place] [address] October, [facility] [address] [id number] [place] [address] October, [facility] [address] [id number] [place] [address] October, [facility] [address] [id number] [place] [address] Sep, [facility] [address] [id number] [place] [address] Sep, [facility] [address] [id number] [place] [address] Sep, [facility] [address] [id number] [place] [address] Sep, [facility] [address] [id number] [place] [address] Sep, [facility] [address] [id number] [place] [address] Sep, [facility] [address] [id number] [place] [address] Sep, [facility] [address] [id number] [place] [address] Aug, [facility] [address] [id number] [place] [address] Aug, [facility] [address] [id number] [place] [address] Aug, [facility] [address] [id number] [place] [address] Aug, [facility] [address] [id number] [place] [address] Aug, [facility] [address] [id number] [place] [address] Aug, [facility] [address] [facility] [id number] [place] [address] Jul, [facility] [address] [id number] [place] [address] Jul, [facility] [address] [id number] [place] [address] Jul, [facility] [address] [id number] [place] [address] Jul, [facility] [address] [id number] [place] [address] Jul, [facility] [address] [id number] [place] [address] Jul, [facility] [address] [id number] [place] [address] Jun, [facility] [address] [id number] [place] [address] Jun, [facility] [address] [id number] [place] [address] Jun, [facility] [address] [id number] [place] [address] Jun, [facility] [address] [id number] [place] [address] Jun, [facility] [address] [id number] [place] [address] Jun, [facility] [address] [id number] [place] [address] Jun, [facility] [address] [id number] [place] [address] Jun, [facility] [address] [id number] [place] [address] Jun, [facility] [address] [facility] [id number] [place] [address] Jun, [facility] [address] [id number] [place] [address] 14 Jun, 2013 [facility] [address] [facility] [id number] [place] [address] 14 Jun, 2013 [facility] [address] [id number] [place] [address] 14 Jun, 2013 [facility] [address] [id number] [place] [address] 30 May, 2013 [facility] [address] [facility] [id number] [place] [address] 30 May, 2013 [facility] [address] [facility] [id number] [place] [address] 30 May, 2013 [facility] [address] [id number] [place] [address] 30 May, 2013 [facility] [address] [facility] [id number] [place] [address] 26 May, 2012 [facility] [address] [facility] [id number] [place] [address] 14 May, 2013 [facility] [address] [id number] [place] [address] 14 May, 2013 [facility] [address] [facility] [id number] [place] [address] 12 May, 2013 [facility] [address] [facility] [id number] [place] [address] 12 May, 2013 [facility] [address] [facility] [id number] [place] [address] 11 May, 2013 [facility] [address] [facility] [id number] [place] [address] 11 May, 2013 [facility] [address] [facility] [id number] [place] [address] 10 May, 2013 [facility] [address] [facility] [id number] [place] [address] 10 May, 2013 [facility] [address] [id number] [place] [address] 09 May, 2012 [facility] [address] [facility] [id number] [place] [address] 09 May, 2012 [facility] [address] [facility] [id number] [place] [address] 08 May, 2012 [facility] [address] [facility] [id number] [place] [address] May, 2012 [facility] [address] [facility] [id number] [place] [address] May, 2012 [facility] [address] [facility] [id number] [place] [address] May, 2012 [facility] [address] [facility] [id number] [place] [address] May, 2012 [facility] [address] [facility] [id number] [place] [address] May, 2012 [facility] [address] [facility] [id number] [place] [address] Apr, [facility] [address] [facility] [id number] [place] [address] Apr, [facility] [address] [facility] [id number] [place] [address] Apr, [facility] [address] [facility] [id number] [place] [address] Apr, [facility] [address] [facility] [id number] [place] [address] 08 Mar, 2013 [facility] [address] [facility] [id number] [place] [address] 23 Sep, 2012 [facility] [address] [facility] [id number] [place] [address] 16 Sep, 2012 [facility] [address] [facility] [id number] [place] [address] 13 Sep, 2012 [facility] [address] [facility] [id number] [place] [address] 10 Sep, 2012 [facility] [address] [facility] [id number] [place] [address] 09 Feb, 2012 [facility] [address] [id number] [place] [address] Feb, [facility] [address] [facility] [id number] [place] [address] Jan, [facility] [address] [id number] [place] [address] Jan, [facility] [address] [facility] [id number] [place] [address] Jan, [facility] [address] [id number] [place] [address] Dec, [facility] [address] [facility] [id number] [place] [address] Dec, [facility] [address] [facility] [id number] [place] [address] Dec, [facility] [address] [facility] [id number] [place] [address] Dec, [facility] [address] [facility] [id number] [place] [address] Dec, [facility] [address] [facility] [id number] [place] [address] Nov, [facility] [address] [id number] [place] [address] Nov, [facility] [address] [facility] [id number] [place] [address] Nov, [facility] [address] [facility] [id number] [place] [address] Nov, [facility] [address] [id number] [place] [address] Nov, [facility] [address] [id number] [place] [address] Nov, [facility] [address] [id number] [place] [address] Nov, [facility] [address] [id number] [place] [address] Nov, [facility] [address] [id number] [place] [address] Nov, [facility] [address] [id number] [place] [address] Nov, [facility] [address] [facility] [id number] [place] [address] October, [facility] [address] [facility] [id number] [place] [address] October, [facility] [address] [facility] [id number] [place] [address] Sep, [facility] [address] [facility] [id number] [place] [address] Sep, [facility] [address] [facility] [id number] [place] [address] Sep, [facility] [address] [facility] [id number] [place] [address] Sep, [facility] [address] [id number] [place] [address] Sep, [facility] [address] [facility] [id number] [place] [address] Aug, [facility] [address] [facility] [id number] [place] [address] Aug, [facility] [address] [id number] [place] [address] Jul, [facility] [address] [facility] [id number] [place] [address] Jul, [facility] [address] [facility] [id number] [place] [address] Jun, [facility] [address] [facility] [id number] [place] [address] Jun, [facility] [address] [facility] [id number] [place] [address] 05 May, 2012 [facility] [address] [facility] [id number] [place] [address] May, [facility] [address] [facility] [id number] [place] [address] May, [facility] [address] [facility] [id number] [place] [address] May, [facility] [address] [id number] [place] [address] Apr, [facility] [address] [facility] [id number] [place] [address] Apr, [facility] [address] [facility] [id number] [place] [address] Apr, [facility] [address] [facility] [id number] [place] [address] Apr, [facility] [address] [id number] [place] [address] Apr, [facility] [address] [id number] [place] [address] Apr, [facility] [address] [id number] [place] [address] Apr, [facility] [address] [facility] [id number] [place] [address] Apr, [facility] [address] [facility] [id number] [place] [address] Apr, [facility] [address] [facility] [id number] [place] [address] 15 Mar, 2012 [facility] [address] [facility] [id number] [place] [address] 15 Mar, 2012 [facility] [address] [id number] [place] [address] 05 Feb, 2012 [facility] [address] [facility] [id number] [place] [address] Jan, [facility] [address] [id number] [place] [address] Jan, [facility] [address] [facility] [id number] [place] [address] Dec, [facility] [address] [facility] [id number] [place] [address] Nov, [facility] [address] [facility] [id number] [place] [address] Nov, [facility] [address] [facility] [id number] [place] [address] October, [facility] [address] [facility] [id number] [place] [address] October, [facility] [address] [facility] [id number] [place] [address] Sep, [facility] [address] [facility] [id number] [place] [address] Sep, [facility] [address] [facility] [id number] [place] [address] May, [facility] [address] [facility] [id number] [place] [address] Apr, [facility] [address] [id number] [place] [address] Apr, [facility] [address] [facility] [id number] [place] [address] Apr, [facility] [address] [facility] [id number] [place] [address] 15 Apr, 2011 [facility] [address] [facility] [id number] [place] [address] 15 Apr, 2011 [facility] [id number] [place] [address] 10 Apr, 2011 [facility] [address] [facility] [id number] [place] [address] 10 Apr, 2011 [facility] [address] [facility] [id number] [place] [address] Apr, [facility] [address] [id number] [place] [address] Mar, [facility] [address] [id number] [place] [address] Mar, [facility] [address] [id number] [place] [address] Mar, [facility] [address] [id number] [place] [address] Mar, [facility] [address] [facility] [id number] [place] [address] Mar, [facility] [address] [id number] [place] [address] Mar, IMMUNIZATIONS No Known Immunizations SOCIAL HISTORY [...] tubal ligation Hospitalization History Mental floor at [facility]
--- OUTSIDE RECORDS SUMMARY | 2019-12-24 19:44 | XMS REPORT ---
Author Author Deann Trey Doctor Organization [facility] Address Unknown Phone Unavailable Care Team Providers Care Supervisor Name Role Phone Migration, Doctor Unavailable Unavailable PROBLEMS Type Condition ICD9-CM Code JWL86-SV Code Onset Dates Condition S tatus SNOMED Code Problem Nondependent 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 Ac tive 907781538 Problem Other chronic pain G89.29 Active 1 19984166 Problem Unspecified epilepsy without mention of intractable ep ilepsy G40.909 Active 38704649 Problem Hyperlipidemia, unspecified E78.5 Ac tive 17399597 Problem Hypertension I10 Active 4025090 3 Problem Esophageal reflux K21.9 Active 23 9196196 Problem Rheumatoid arthritis M06.9 Active 31506565 Problem Cough R05 Active 93447187 Problem Acquired hypothyroidism E03.9 Active 047104884 Problem Unspecified open-angle glaucoma, stage unspecified H40.10X0 Feb, Active 64236500 Problem Presbyopia H52.4 Active 21874992 Problem Insomnia G47.00 Active 610907911 Problem Arthralgia M25.50 Active 65556628 Problem Thyroid nodule E04.1 Active 44652 5005 Problem Anxiety disorder, unspecified F41.9 Active 822073968 Problem Chronic tension-type headache, intractable G44.221 Active 248584007 Problem Neuropathy G62.9 Active 822263245 Problem Goiter E04.9 Active 9426874 Problem Multinodular goiter E04.2 Active 230759325 Problem Carpal tunnel syndrome of left wrist G56.02 Active 802375170078414 Problem Chronic obstructive pulmonary disease, unspecified COPD ty pe J44.9 Active 11809557 Problem BMI 40.0-44.9, adult Z68.41 Active 529391989 Problem Seasonal allergic rhinitis due to pollen J30.1 Active 21422302 Problem Depression F32.9 Active 70826772 Problem Essential hypertension I10 Active 32738136 Problem Depressive disorder F32.9 Active 38061965 Problem Right-sided low back pain without sciatica M54.5 Active 258983954 Problem Reactive airway disease with out complication, unspecified asthma severity, unspecified whether persistent J45.909 Active 923986935736 Problem Urge incontinence of urine N39.41 Act chen 00955429 Problem Abnormal laboratory test R89.9 Activ e 152929261 Problem COPD with exacerbation J44.1 Active 988041872 ALLERGIES No Information ENCOUNTERS Encounter Location Date Diagnosis [place] [address] [address] Sep, [place] [address] [address] Aug, Pelvic pain R10.2 ; Other specified bact erial agents as the cause of diseases classified elsewhere B96.89 and Acute vaginitis N76.0 [place] [address] [address] Apr, Bronchitis J40 [place] [address] [address] Apr, Acute gastritis without hemorrhage, unsp ecified gastritis type K29.00 [place] [address] [address] Mar, [place] [address] [address] Feb, [place] [address] [address] Feb, Mass of right side of neck R22.1 and Mul tinodular goiter E04.2 [facility] [address] [facility] [id number] [address] [place] [address] Jan, Bronchitis J40 [place] [address] [address] October, Acquired hypothyroidism E03.9 [place] [address] [address] October, Acute gastritis without hemorrhage, unsp ecified gastritis type K29.00 ; Epigastric pain R10.13 ; Essential hypertension I10 ; Screening for colon cancer Z12.11 and BMI 40.0-44.9, adult Z68.41 [place] [address] [address] October, [facility] [place] [address] [address] October, Chest pain R07.9 and Morbid obesity E66.01 [facility] [address] [address] Sep, Generalized abdominal pain R 10.84 ; Morbid obesity E66.01 ; Non-intractable vomiting with nausea, unspecified vomiting type R11.2 and Seasonal allergic rhinitis due to pollen J30.1 [facility] [place] [address] [address] Jul, COPD with exacerbation J44.1 ; Viral upper respiratory tract infection J06.9 and Morbid obesity E66.01 [facility] [place] [address] [address] Jun, Viral upper respiratory trac t infection J06.9 [place] [address] [address] Apr, Abnormal laboratory test R89.9 [place] [address] [address] Apr, Abnormal laboratory test R89.9 [place] [address] [address] Apr, Abnormal laboratory test R89.9 [place] [address] [address] Apr, [place] [address] [address] Apr, [place] [address] [address] Apr, Nonintractable episodic headache, unspec ified headache type R51 ; Urge incontinence of urine N39.41 ; BMI 40.0-44.9, adult Z68.41 ; Myalgia M79.10 and Acute cystitis without hematuria N30.[address] [address] 31 Mar, 2018 Nasal congestion R09.81 ; Low back pain M54.5 ; Reactive airway disease without complication, unspecified asthma severity, unspecified whether persistent J45.909 ; Other chronic pain G89.29 ; Acute cystitis with hematuria N30.01 and BMI 40.0-44.9, adult Z68.41 [place] [address] [address] Mar, Acute cystitis with hematuria N30.01 [facility] [address] [facility] [id number] [address] [place] [address] Mar, BMI 40.0-44.9, adult Z68.41 ; Acute cystitis with hematuria N30.01 ; Acute bilateral low back pain without sciatica M54.5 and Nausea R11.0 [place] [address] [address] Mar, Hypertension I10 ; Acquired hypothyroidi sm E03.9 ; Esophageal reflux K21.9 ; Chronic obstructive pulmonary disease, unspecified COPD type J44.9 and BMI 40.0-44.9, adult Z68.[address] [address] Mar, Hypertension I10 [address] [address] Nov, Hyperlipidemia, unspecified E78.[address] [address] October, Chest pain, unspecified type R07.9 and A cquired hypothyroidism E03.[address] [address] October, Chest pain, unspecified type R07.9 ; Fam demetrius history of coronary artery disease Z82.49 ; Carpal tunnel syndrome of left wrist G56.02 ; Hypertension I10 ; Esophageal reflux K21.9 ; Arthralgia M25.50 ; Acquired hypothyroidism E03.9 ; Cough R05 ; Nausea R11.0 ; Weight gain R63.5 and BMI 45.0-49.9, adult Z68.[address] [address] Jun, Acquired hypothyroidism E03.9 and Cough R05 [address] [address] May, [address] [address] Feb, Tarsal tunnel syndrome of both lower ext remities G57.53 and Neuropathy G62.[address] [address] Dec, Pleuritis R09.[address] [address] Nov, [address] [address] October, Arthralgia, unspecified joint M25.50 and Allergy, initial encounter T78.40XA [address] [address] October, [address] [address] October, Acute recurrent maxillary sinusitis J01. 01 and Arthralgia M25.[address] [address] Sep, Pharyngitis due to other organism J02.[address] [address] Aug, Acute nasopharyngitis J00 [address] [address] Aug, Multinodular goiter E04.[address] [address] Aug, Thyroid nodule E04.1 [place] [address] [address] Jul, Tarsal tunnel syndrome of both lower ext remities G57.[address] [address] Jun, Pneumonia due to infectious organism, un specified laterality, unspecified part of lung J18.9 [place] [address] [address] Jun, Bronchospasm with bronchitis, acute J20. [address] [address] May, Acute non-recurrent frontal sinusitis J0 1.[address] [address] May, Flat foot [pes planus] (acquired), left foot M21.42 ; Flat foot [pes planus] (acquired), right foot M21.41 and Neuropathy G62.[address] [address] Apr, Chronic tension-type headache, intractab le G44.221 ; Right lower quadrant abdominal pain R10.31 ; Cervicalgia M54.2 ; Acute gastritis without hemorrhage, unspecified gastritis type K29.00 and Hypertension I10 [address] [address] Mar, Depression F32.9 and Anxiety disorder, u nspecified F41.[address] [address] Feb, Depressive disorder F32.9 and Anxiety di sorder, unspecified F41.[address] [address] Jan, Dysuria R30.0 ; Lower abdominal pain R10 .30 ; Acute bilateral low back pain without sciatica M54.5 ; Nausea and vomiting, unspecified intactability, vomiting of unspecified type R11.2 ; Pain in right foot M79.671 and Pain of left foot M79.672 [place] [address] [address] Dec, Urinary tract infection, site not specif ied N39.0 [place] [address] [address] Dec, [place] [address] [address] Nov, [place] [address] [address] Nov, Dysuria R30.0 [place] [address] [address] Nov, Dysuria R30.0 and Acute cystitis with he maturia N30.01 [place] [address] [address] October, Nausea R11.0 [place] [address] [address] October, Thyroid nodule E04.1 ; Carpal tunnel syn drome, left upper limb G56.02 ; Carpal tunnel syndrome, right upper limb G56.01 and Constipation, unspecified constipation type K59.00 [place] [address] [address] October, [place] [address] [address] October, Thyroid nodule E04.1 [place] [address] [address] October, Cold thyroid nodule E04.1 [place] [address] [address] October, [place] [address] [address] Sep, Thyroid nodule E04.1 [place] [address] [address] Sep, Thyroid nodule E04.1 [place] [address] [address] Sep, Thyroid nodule E04.1 ; Hypertension I10 ; Esophageal reflux K21.9 and Hyperlipidemia, unspecified E78.5 [place] [address] [address] Aug, Other chronic pain G89.29 ; Sinusitis J3 2.9 and Hypertension I10 [place] [address] [address] Jul, [place] [address] [address] 15 Jul, 2015 [place] [address] [address] Jul, Insomnia G47.00 and Arthralgia M25.50 [place] [address] [address] 10 Jul, 2015 Depressive disorder F32.9 and Anxiety di sorder, unspecified F41.[address] [address] May, Right-sided low back pain without sciati ca M54.5 and Depression F32.9 [place] [address] [address] Apr, Hematuria R31.9 [place] [address] [address] Mar, Other chronic pain G89.29 [place] [address] [address] Mar, Other chronic pain G89.29 [place] [address] [address] Feb, [facility] [address] [place] [id number] [place] [address] Feb, Other chronic pain 338.29 ; Dysuria 788. 1 ; UTI (urinary tract infection) 599.0 ; Insomnia 780.52 ; Hot flashes 627.2 and Hypertension 401.9 [facility] [address] [place] [id number] [place] [address] Feb, Dysuria 788.1 [facility] [address] [place] [id number] [place] [address] Feb, [facility] [address] [place] [id number] [place] [address] Jan, [facility] [address] [place] [id number] [place] [address] Jan, [facility] [address] [place] [id number] [place] [address] Jan, Fibromyalgia 729.1 ; Hypertension 401.9 ; Dysthymia 300.4 and Hot flashes 627.2 [facility] [address] [place] [id number] [place] [address] Dec, [facility] [address] [place] [id number] [place] [address] Dec, [facility] [address] [place] [id number] [place] [address] Dec, [facility] [address] [place] [id number] [place] [address] Nov, Other chronic pain 338.29 [facility] [address] [place] [id number] [place] [address] October, [facility] [address] [place] [id number] [place] [address] October, [facility] [address] [place] [id number] [place] [address] Sep, [facility] [address] [place] [id number] [place] [address] Sep, [facility] [address] [id number] [place] [address] Aug, [facility] [address] [id number] [place] [address] Aug, [facility] [address] [id number] [place] [address] Aug, [facility] [address] [id number] [place] [address] Aug, [facility] [address] [id number] [place] [address] Aug, [facility] [address] [id number] [place] [address] Aug, [facility] [address] [id number] [place] [address] Aug, [facility] [address] [id number] [place] [address] Aug, [facility] [address] [id number] [place] [address] Aug, [facility] [address] [id number] [place] [address] Aug, [facility] [address] [id number] [place] [address] Aug, [facility] [address] [id number] [place] [address] Aug, [facility] [address] [id number] [place] [address] Aug, [facility] [address] [id number] [place] [address] Aug, [facility] [address] [id number] [place] [address] Jul, [facility] [address] [id number] [place] [address] Jul, [facility] [address] [id number] [place] [address] Jul, [facility] [address] [id number] [place] [address] Jul, [facility] [address] [id number] [place] [address] Jul, [facility] [address] [id number] [place] [address] Jul, [facility] [address] [id number] [place] [address] Jun, [facility] [address] [id number] [place] [address] Jun, [facility] [address] [id number] [place] [address] Jun, [facility] [address] [id number] [place] [address] Jun, [facility] [address] [id number] [place] [address] May, [facility] [address] [id number] [place] [address] May, [facility] [address] [id number] [place] [address] May, [facility] [address] [id number] [place] [address] May, [facility] [address] [id number] [place] [address] May, [facility] [address] [id number] [place] [address] May, [facility] [address] [id number] [place] [address] May, [facility] [address] [id number] [place] [address] May, [facility] [address] [id number] [place] [address] May, [facility] [address] [id number] [place] [address] May, [facility] [address] [id number] [place] [address] Apr, [facility] [address] [id number] [place] [address] Apr, [facility] [address] [id number] [place] [address] Apr, [facility] [address] [id number] [place] [address] Apr, [facility] [address] [id number] [place] [address] Apr, [facility] [address] [id number] [place] [address] Apr, [facility] [address] [id number] [place] [address] Apr, [facility] [address] [id number] [place] [address] Apr, [facility] [address] [id number] [place] [address] Apr, [facility] [address] [id number] [place] [address] Mar, [facility] [address] [id number] [place] [address] Mar, [facility] [address] [id number] [place] [address] Mar, [facility] [address] [id number] [place] [address] Mar, [facility] [address] [place] [id number] [place] [address] Mar, [facility] [address] [id number] [place] [address] Mar, [facility] [address] [id number] [place] [address] Mar, [facility] [address] [id number] [place] [address] 08 Mar, 2013 [facility] [address] [id number] [place] [address] 30 Sep, 2013 [facility] [address] [id number] [place] [address] 30 Sep, 2013 [facility] [address] [id number] [place] [address] 24 Sep, 2013 [facility] [address] [facility] [id number] [place] [address] 24 Sep, 2013 [facility] [address] [id number] [place] [address] 22 Feb, 2013 [facility] [address] [id number] [place] [address] 22 Feb, 2013 [facility] [address] [id number] [place] [address] 10 Sep, 2013 [facility] [address] [id number] [place] [address] 10 Sep, 2013 [facility] [address] [id number] [place] [address] 03 Sep, 2013 [facility] [address] [id number] [place] [address] 03 Sep, 2013 [facility] [address] [id number] [place] [address] 03 Sep, 2013 [facility] [address] [id number] [place] [address] 03 Sep, 2013 [facility] [address] [id number] [place] [address] 03 Sep, 2013 [facility] [address] [id number] [place] [address] 03 Sep, 2013 [facility] [address] [id number] [place] [address] 07 Jan, 2013 [facility] [address] [id number] [facility] [place] [address] Jan, [facility] [address] [id number] [facility] [place] [address] Dec, [facility] [address] [facility] [id number] [place] [address] Dec, [facility] [address] [id number] [facility] [place] [address] Dec, [facility] [address] [facility] [id number] [place] [address] Dec, 2013 [facility] [address] [facility] [id number] [facility] [place] [id number] Dec, [facility] [address] [id number] [place] [address] Dec, [facility] [address] [id number] [place] [address] Dec, [facility] [address] [id number] [place] [address] Dec, 2013 [facility] [address] [id number] [place] [address] Dec, [facility] [address] [id number] [place] [address] Dec, 2013 [facility] [address] [id number] [place] [address] Dec, 2013 [facility] [address] [id number] [place] [address] Dec, 2013 [facility] [address] [facility] [id number] [place] [address] Dec, 2013 [facility] [address] [id number] [place] [address] Dec, 2013 [facility] [address] [id number] [place] [address] Dec, 2013 [facility] [address] [id number] [place] [address] Dec, 2013 [facility] [address] [id number] [facility] [place] [address] Dec, [facility] [address] [facility] [id number] [place] [address] Dec, [facility] [address] [facility] [id number] [place] [address] Dec, [facility] [address] [id number] [place] [address] Nov, [facility] [address] [facility] [id number] [place] [address] Nov, [facility] [address] [facility] [id number] [place] [address] Nov, [facility] [address] [id number] [place] [address] Nov, [facility] [address] [id number] [place] [address] Nov, [facility] [address] [id number] [place] [address] Nov, [facility] [address] [id number] [place] [address] Nov, [facility] [address] [id number] [place] [address] Nov, [facility] [address] [id number] [place] [address] Nov, [facility] [address] [id number] [place] [address] October, [facility] [address] [facility] [id number] [place] [address] October, [facility] [address] [id number] [place] [address] October, [facility] [address] [id number] [place] [address] October, [facility] [address] [id number] [place] [address] October, [facility] [address] [id number] [place] [address] October, [facility] [address] [id number] [place] [address] October, [facility] [address] [id number] [place] [address] October, [facility] [address] [id number] [place] [address] Sep, [facility] [address] [facility] [id number] [place] [address] Sep, [facility] [address] [id number] [place] [address] Sep, [facility] [address] [id number] [place] [address] Sep, [facility] [address] [id number] [place] [address] Sep, [facility] [address] [id number] [place] [address] Sep, [facility] [address] [id number] [place] [address] Sep, [facility] [address] [id number] [place] [address] Aug, [facility] [address] [id number] [place] [address] Aug, [facility] [address] [id number] [place] [address] Aug, [facility] [address] [id number] [place] [address] Aug, [facility] [address] [id number] [place] [address] Aug, [facility] [address] [id number] [place] [address] Aug, [facility] [address] [id number] [place] [address] Jul, [facility] [address] [id number] [place] [address] Jul, [facility] [address] [id number] [place] [address] Jul, [facility] [address] [id number] [place] [address] Jul, [facility] [address] [id number] [place] [address] Jul, [facility] [address] [id number] [place] [address] Jul, [facility] [address] [id number] [place] [address] Jun, [facility] [address] [id number] [place] [address] Jun, [facility] [address] [id number] [place] [address] Jun, [facility] [address] [id number] [place] [address] Jun, [facility] [address] [id number] [place] [address] Jun, [facility] [address] [id number] [place] [address] Jun, [facility] [address] [id number] [place] [address] Jun, [facility] [address] [facility] [id number] [place] [address] Jun, [facility] [address] [id number] [place] [address] Jun, [facility] [address] [id number] [place] [address] Jun, [facility] [address] [id number] [place] [address] Jun, [facility] [address] [id number] [place] [address] 14 Jun, 2013 [facility] [address] [id number] [place] [address] 14 Jun, 2013 [facility] [address] [id number] [place] [address] 30 May, 2013 [facility] [address] [id number] [place] [address] 30 May, 2013 [facility] [address] [id number] [place] [address] 30 May, 2013 [facility] [address] [id number] [place] [address] 30 May, 2013 [facility] [address] [id number] [place] [address] 26 May, 2012 [facility] [address] [id number] [place] [address] 14 May, 2013 [facility] [address] [id number] [place] [address] 14 May, 2013 [facility] [address] [id number] [place] [address] 12 May, 2013 [facility] [address] [id number] [place] [address] 12 May, 2013 [facility] [address] [id number] [place] [address] 11 May, 2013 [facility] [address] [id number] [place] [address] 11 May, 2013 [facility] [address] [id number] [place] [address] 10 May, 2013 [facility] [address] [id number] [place] [address] 10 May, 2013 [facility] [address] [id number] [place] [address] 09 May, 2012 [facility] [address] [id number] [place] [address] 09 May, 2012 [facility] [address] [id number] [place] [address] 08 May, 2012 [facility] [address] [id number] [place] [address] May, 2012 [facility] [address] [id number] [place] [address] May, 2012 [facility] [address] [id number] [place] [address] May, 2012 [facility] [address] [id number] [place] [address] May, 2012 [facility] [address] [id number] [place] [address] May, 2012 [facility] [address] [id number] [place] [address] Apr, [facility] [address] [id number] [place] [address] Apr, [facility] [address] [id number] [place] [address] Apr, [facility] [address] [id number] [place] [address] Apr, [facility] [address] [id number] [place] [address] 08 Mar, 2013 [facility] [address] [id number] [place] [address] 23 Feb, 2012 [facility] [address] [id number] [place] [address] 16 Sep, 2012 [facility] [address] [id number] [place] [address] 13 Sep, 2012 [facility] [address] [id number] [place] [address] 10 Sep, 2012 [facility] [address] [id number] [place] [address] 09 Sep, 2012 [facility] [address] [id number] [place] [address] Feb, [facility] [address] [id number] [place] [address] Jan, [facility] [address] [facility] [id number] [place] [address] Jan, [facility] [address] [id number] [place] [address] Jan, [facility] [address] [id number] [place] [address] Dec, [facility] [address] [id number] [place] [address] Dec, [facility] [address] [id number] [place] [address] Dec, [facility] [address] [id number] [place] [address] Dec, [facility] [address] [id number] [place] [address] Dec, [facility] [address] [id number] [place] [address] Nov, [facility] [address] [id number] [place] [address] Nov, [facility] [address] [id number] [place] [address] Nov, [facility] [address] [id number] [place] [address] Nov, [facility] [address] [id number] [place] [address] Nov, [facility] [address] [id number] [place] [address] Nov, [facility] [address] [id number] [place] [address] Nov, [facility] [address] [id number] [place] [address] Nov, [facility] [address] [id number] [place] [address] Nov, [facility] [address] [id number] [place] [address] Nov, [facility] [address] [id number] [place] [address] October, [facility] [address] [id number] [place] [address] October, [facility] [address] [id number] [place] [address] Sep, [facility] [address] [id number] [place] [address] Sep, [facility] [address] [id number] [place] [address] Sep, [facility] [address] [id number] [place] [address] Sep, [facility] [address] [id number] [place] [address] Sep, [facility] [address] [id number] [place] [address] Aug, [facility] [address] [id number] [place] [address] Aug, [facility] [address] [id number] [place] [address] Jul, [facility] [address] [id number] [place] [address] Jul, [facility] [address] [id number] [place] [address] Jun, [facility] [address] [id number] [place] [address] Jun, [facility] [address] [id number] [place] [address] May, [facility] [address] [id number] [place] [address] May, [facility] [address] [id number] [place] [address] May, [facility] [address] [id number] [place] [address] May, [facility] [address] [id number] [place] [address] Apr, [facility] [address] [id number] [place] [address] Apr, [facility] [address] [id number] [place] [address] Apr, [facility] [address] [id number] [place] [address] Apr, [facility] [address] [id number] [place] [address] Apr, [facility] [address] [id number] [place] [address] Apr, [facility] [address] [id number] [place] [address] Apr, [facility] [address] [id number] [place] [address] Apr, [facility] [address] [id number] [place] [address] Apr, [facility] [address] [id number] [place] [address] 15 Mar, 2012 [facility] [address] [id number] [place] [address] 15 Mar, 2012 [facility] [address] [id number] [place] [address] 05 Feb, 2012 [facility] [address] [id number] [place] [address] 16 Jan, 2012 [facility] [address] [id number] [place] [address] Jan, [facility] [address] [id number] [place] [address] Dec, [facility] [address] [id number] [place] [address] Nov, [facility] [address] [id number] [place] [address] Nov, [facility] [address] [id number] [place] [address] October, [facility] [address] [id number] [place] [address] October, [facility] [address] [id number] [place] [address] Sep, [facility] [address] [id number] [place] [address] Sep, [facility] [address] [id number] [place] [address] May, [facility] [address] [id number] [place] [address] Apr, [facility] [address] [id number] [place] [address] Apr, [facility] [address] [id number] [place] [address] Apr, [facility] [address] [id number] [place] [address] 15 Apr, 2011 [facility] [address] [id number] [place] [address] 15 Apr, 2011 [facility] [address] [id number] [place] [address] Apr, [facility] [id number] [place] [address] 10 Apr, 2011 [facility] [address] [id number] [place] [address] Apr, [facility] [address] [id number] [place] [address] Mar, [facility] [address] [id number] [place] [address] Mar, [facility] [address] [id number] [place] [address] Mar, [facility] [address] [id number] [place] [address] Mar, [facility] [address] [id number] [place] [address] Mar, [facility] [address] [id number] [place] [address] Mar, IMMUNIZATIONS No Known Immunizations SOCIAL HISTORY [...] tubal ligation Hospitalization History Mental floor at [facility]
--- OUTSIDE RECORDS SUMMARY | 2019-12-24 19:44 | XMS REPORT ---
Author Author Trey ANDRADE Organization [facility] Address [address] [place] [address] Care Team Providers Care Blast Furnace Checker Name Role Phone SURESH ANDRADE Unavailable PROBLEMS Type Condition ICD9-CM Code [id number] Code Onset Dates Condition S tatus SNOMED Code Problem Nondependent 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 Ac tive 440027426 Problem Other chronic pain G89.29 Active 1 68767546 Problem Unspecified epilepsy without mention of intractable ep ilepsy G40.909 Active 29949271 Problem Hyperlipidemia, unspecified E78.5 Ac tive 55264563 Problem Hypertension I10 Active 4783565 3 Problem Esophageal reflux K21.9 Active 23 8212547 Problem Rheumatoid arthritis M06.9 Active 22970274 Problem Cough R05 Active 45719659 Problem Acquired hypothyroidism E03.9 Active 229060709 Problem Unspecified open-angle glaucoma, stage unspecified H40.10X0 Feb, Active 45471456 Problem Presbyopia H52.4 Active 98803658 Problem Insomnia G47.00 Active 213499766 Problem Arthralgia M25.50 Active 33520233 Problem Thyroid nodule E04.1 Active 11519 5005 Problem Anxiety disorder, unspecified F41.9 Active 674254339 Problem Chronic tension-type headache, intractable G44.221 Active 614421349 Problem Neuropathy G62.9 Active 520106680 Problem Goiter E04.9 Active 7067646 Problem Multinodular goiter E04.2 Active 279936000 Problem Carpal tunnel syndrome of left wrist G56.02 Active [id number] Problem Chronic obstructive pulmonary disease, unspecified COPD ty pe J44.9 Active 10072175 Problem BMI 40.0-44.9, adult Z68.41 Active 632756459 Problem Seasonal allergic rhinitis due to pollen J30.1 Active 06018857 Problem Depression F32.9 Active 98652587 Problem Essential hypertension I10 Active 68377398 Problem Depressive disorder F32.9 Active 97279119 Problem Right-sided low back pain without sciatica M54.5 Active 371674945 Problem Reactive airway disease with out complication, unspecified asthma severity, unspecified whether persistent J45.909 Active 047052354961 Problem Urge incontinence of urine N39.41 Act chen 26197505 Problem Abnormal laboratory test R89.9 Activ e 935343187 Problem COPD with exacerbation J44.1 Active 793288284 ALLERGIES No Information ENCOUNTERS Encounter Location Date Diagnosis [place] [address] [address] Sep, [place] [address] [address] Aug, Pelvic pain R10.2 ; Other specified bact erial agents as the cause of diseases classified elsewhere B96.89 and Acute vaginitis N76.0 [place] [address] [address] Apr, Bronchitis J40 [place] [address] [address] Apr, Acute gastritis without hemorrhage, unsp ecified gastritis type K29.00 [place] [address] [address] Mar, [facility] [address] [address] Feb, [place] [address] [address] Feb, Mass of right side of neck R22.1 and Mul tinodular goiter E04.2 [facility] [address] [facility] [place] [id number] [address] [place] [address] Jan, Bronchitis J40 [facility] [address] [address] October, Acquired hypothyroidism E03.9 [place] [address] [address] October, Acute gastritis without hemorrhage, unsp ecified gastritis type K29.00 ; Epigastric pain R10.13 ; Essential hypertension I10 ; Screening for colon cancer Z12.11 and BMI 40.0-44.9, adult Z68.41 [place] [address] [address] October, [facility] [place] [address] [address] October, Chest pain R07.9 and Morbid obesity E66.01 [facility] [address] [address] Sep, Generalized abdominal pain R 10.84 ; Morbid obesity E66.01 ; Non-intractable vomiting with nausea, unspecified vomiting type R11.2 and Seasonal allergic rhinitis due to pollen J30.1 [facility] [address] [address] Jul, COPD with exacerbation J44.1 ; Viral upper respiratory tract infection J06.9 and Morbid obesity E66.01 [facility] [place] [address] [address] Jun, Viral upper respiratory trac t infection J06.9 [place] [address] [address] Apr, Abnormal laboratory test R89.9 [place] [address] [address] Apr, Abnormal laboratory test R89.9 [place] [address] [address] Apr, Abnormal laboratory test R89.9 [place] [address] [address] Apr, [place] [address] [address] Apr, [place] [address] [address] Apr, Nonintractable episodic headache, unspec ified headache type R51 ; Urge incontinence of urine N39.41 ; BMI 40.0-44.9, adult Z68.41 ; Myalgia M79.10 and Acute cystitis without hematuria N30.00 [facility] [address] [address] Mar, Nasal congestion R09.81 ; Low back pain M54.5 ; Reactive airway disease without complication, unspecified asthma severity, unspecified whether persistent J45.909 ; Other chronic pain G89.29 ; Acute cystitis with hematuria N30.01 and BMI 40.0-44.9, adult Z68.41 [place] [address] [address] Mar, Acute cystitis with hematuria N30.01 [facility] [address] [facility] [place] [id number] [address] [place] [address] Mar, BMI 40.0-44.9, adult Z68.41 ; Acute cystitis with hematuria N30.01 ; Acute bilateral low back pain without sciatica M54.5 and Nausea R11.0 [place] [address] [address] Mar, Hypertension I10 ; Acquired hypothyroidi sm E03.9 ; Esophageal reflux K21.9 ; Chronic obstructive pulmonary disease, unspecified COPD type J44.9 and BMI 40.0-44.9, adult Z68.41 [place] [address] [address] Mar, Hypertension I10 [place] [address] [address] Nov, Hyperlipidemia, unspecified E78.5 [place] [address] [address] October, Chest pain, unspecified type R07.9 and A cquired hypothyroidism E03.9 [place] [address] [address] October, Chest pain, unspecified type R07.9 ; Fam demetrius history of coronary artery disease Z82.49 ; Carpal tunnel syndrome of left wrist G56.02 ; Hypertension I10 ; Esophageal reflux K21.9 ; Arthralgia M25.50 ; Acquired hypothyroidism E03.9 ; Cough R05 ; Nausea R11.0 ; Weight gain R63.5 and BMI 45.0-49.9, adult Z68.[address] [address] Jun, Acquired hypothyroidism E03.9 and Cough R05 [address] [address] May, [address] [address] Feb, Tarsal tunnel syndrome of both lower ext remities G57.53 and Neuropathy G62.[address] [address] Dec, Pleuritis R09.[address] [address] Nov, [address] [address] October, Arthralgia, unspecified joint M25.50 and Allergy, initial encounter T78.40XA [address] [address] October, [address] [address] October, Acute recurrent maxillary sinusitis J01. 01 and Arthralgia M25.[address] [address] Sep, Pharyngitis due to other organism J02.[address] [address] Aug, Acute nasopharyngitis J00 [address] [place] [address] Aug, Multinodular goiter E04.2 [place] [address] [address] Aug, Thyroid nodule E04.1 [place] [address] [address] 17 Jul, 2016 Tarsal tunnel syndrome of both lower ext remities G57.53 [place] [address] [address] Jun, Pneumonia due to infectious organism, un specified laterality, unspecified part of lung J18.9 [place] [address] [address] Jun, Bronchospasm with bronchitis, acute J20. 9 [place] [address] [address] May, Acute non-recurrent frontal sinusitis J0 1.10 [place] [address] [address] May, Flat foot [pes planus] (acquired), left foot M21.42 ; Flat foot [pes planus] (acquired), right foot M21.41 and Neuropathy G62.9 [place] [address] [address] Apr, Chronic tension-type headache, intractab le G44.221 ; Right lower quadrant abdominal pain R10.31 ; Cervicalgia M54.2 ; Acute gastritis without hemorrhage, unspecified gastritis type K29.00 and Hypertension I10 [place] [address] [address] Mar, Depression F32.9 and Anxiety disorder, u nspecified F41.9 [place] [address] [address] Feb, Depressive disorder F32.9 and Anxiety di sorder, unspecified F41.9 [place] [address] [address] Jan, Dysuria R30.0 ; Lower abdominal pain R10 .30 ; Acute bilateral low back pain without sciatica M54.5 ; Nausea and vomiting, unspecified intactability, vomiting of unspecified type R11.2 ; Pain in right foot M79.671 and Pain of left foot M79.672 [place] [address] [address] Dec, Urinary tract infection, site not specif ied N39.0 [place] [address] [address] Dec, [place] [address] [address] Nov, [place] [address] [address] Nov, Dysuria R30.0 [place] [address] [address] Nov, Dysuria R30.0 and Acute cystitis with he maturia N30.01 [place] [address] [address] October, Nausea R11.0 [place] [address] [address] October, Thyroid nodule E04.1 ; Carpal tunnel syn drome, left upper limb G56.02 ; Carpal tunnel syndrome, right upper limb G56.01 and Constipation, unspecified constipation type K59.00 [place] [address] [address] October, [place] [address] [address] October, Thyroid nodule E04.1 [place] [address] [address] October, Cold thyroid nodule E04.1 [place] [address] [address] October, [place] [address] [address] Sep, Thyroid nodule E04.1 [place] [address] [address] Sep, Thyroid nodule E04.1 [place] [address] [address] Sep, Thyroid nodule E04.1 ; Hypertension I10 ; Esophageal reflux K21.9 and Hyperlipidemia, unspecified E78.5 [place] [address] [address] Aug, Other chronic pain G89.29 ; Sinusitis J3 2.9 and Hypertension I10 [place] [address] [address] 29 Jul, [address] [address] 15 Jul, 2015 [place] [address] [address] 10 Jul, 2015 Insomnia G47.00 and Arthralgia M25.[address] [address] 10 Jul, 2015 Depressive disorder F32.9 and Anxiety di sorder, unspecified F41.[address] [address] May, Right-sided low back pain without sciati ca M54.5 and Depression F32.[address] [address] Apr, Hematuria R31.[address] [address] Mar, Other chronic pain G89.[address] [address] Mar, Other chronic pain G89.29 [facility] [address] [place] [id number] [place] [address] Feb, [facility] [address] [address] Feb, Other chronic pain 338.29 ; Dysuria 788. 1 ; UTI (urinary tract infection) 599.0 ; Insomnia 780.52 ; Hot flashes 627.2 and Hypertension 401.9 [facility] [address] [address] Feb, Dysuria 788.1 [facility] [address] [address] Feb, [facility] [address] [address] Jan, [facility] [address] [address] Jan, [facility] [address] [address] Jan, Fibromyalgia 729.1 ; Hypertension 401.9 ; Dysthymia 300.4 and Hot flashes 627.2 [facility] [address] [place] [id number] [place] [address] Dec, [facility] [address] [address] Dec, [facility] [address] [address] Dec, [facility] [address] [address] Nov, Other chronic pain 338.29 [facility] [address] [address] October, [facility] [address] [address] October, [facility] [address] [address] Sep, [facility] [address] [id number] [place] [address] 13 Sep, 2014 [facility] [address] [id number] [place] [address] Aug, [facility] [address] [id number] [place] [address] Aug, [facility] [address] [id number] [place] [address] Aug, [facility] [address] [id number] [place] [address] Aug, [facility] [address] [id number] [place] [address] Aug, [facility] [address] [id number] [place] [address] Aug, [facility] [address] [id number] [place] [address] Aug, [facility] [address] [id number] [place] [address] Aug, [facility] [address] [id number] [place] [address] Aug, [facility] [address] [id number] [place] [address] Aug, [facility] [address] [id number] [place] [address] Aug, [facility] [address] [id number] [place] [address] Aug, [facility] [address] [id number] [place] [address] Aug, [facility] [address] [id number] [place] [address] Aug, [facility] [address] [id number] [place] [address] Jul, [facility] [address] [id number] [place] [address] Jul, [facility] [address] [id number] [place] [address] Jul, [facility] [address] [id number] [place] [address] Jul, [facility] [address] [id number] [place] [address] Jul, [facility] [address] [id number] [place] [address] Jul, [facility] [address] [id number] [place] [address] Jun, [facility] [address] [id number] [place] [address] Jun, [facility] [address] [id number] [place] [address] Jun, [facility] [address] [id number] [place] [address] Jun, [facility] [address] [id number] [place] [address] May, [facility] [address] [id number] [place] [address] May, [facility] [address] [id number] [place] [address] May, [facility] [address] [id number] [place] [address] May, [facility] [address] [id number] [place] [address] May, [facility] [address] [id number] [place] [address] May, [facility] [address] [id number] [place] [address] May, [facility] [address] [id number] [place] [address] May, [facility] [address] [id number] [place] [address] May, [facility] [address] [id number] [place] [address] May, [facility] [address] [id number] [place] [address] Apr, [facility] [address] [id number] [place] [address] Apr, [facility] [address] [id number] [place] [address] Apr, [facility] [address] [id number] [place] [address] Apr, [facility] [address] [id number] [place] [address] Apr, [facility] [address] [id number] [place] [address] Apr, [facility] [address] [id number] [place] [address] Apr, [facility] [address] [id number] [place] [address] Apr, [facility] [address] [id number] [place] [address] Apr, [facility] [address] [id number] [place] [address] Mar, [facility] [address] [id number] [place] [address] Mar, [facility] [address] [id number] [place] [address] Mar, [facility] [address] [place] [id number] [place] [address] Mar, [facility] [address] [id number] [place] [address] Mar, [facility] [address] [id number] [place] [address] Mar, [facility] [address] [facility] [place] [id number] [place] [address] 08 Mar, 2013 [facility] [address] [id number] [place] [address] 08 Mar, 2013 [facility] [address] [id number] [place] [address] 30 Sep, 2013 [facility] [address] [id number] [place] [address] 30 Sep, 2013 [facility] [address] [facility] [place] [id number] [place] [address] 24 Sep, 2013 [facility] [address] [id number] [place] [address] 24 Sep, 2013 [facility] [address] [id number] [place] [address] 22 Sep, 2013 [facility] [address] [id number] [place] [address] 22 Sep, 2013 [facility] [address] [id number] [place] [address] 10 Sep, 2013 [facility] [address] [id number] [place] [address] 10 Sep, 2013 [facility] [address] [id number] [place] [address] 03 Sep, 2013 [facility] [address] [id number] [place] [address] 03 Sep, 2013 [facility] [address] [id number] [place] [address] 03 Sep, 2013 [facility] [address] [id number] [place] [address] 03 Sep, 2013 [facility] [address] [id number] [place] [address] 03 Sep, 2013 [facility] [address] [id number] [place] [address] 03 Sep, 2013 [facility] [address] [id number] [facility] [place] [address] Jan, 2013 [facility] [address] [id number] [place] [address] Jan, [facility] [address] [facility] [id number] [place] [address] Dec, [facility] [address] [facility] [id number] [place] [address] Dec, [facility] [address] [facility] [place] [id number] [place] [address] Dec, [facility] [address] [facility] [place] [id number] [place] [address] Dec, [facility] [address] [facility] [id number] [place] [id number] Dec, [facility] [address] [id number] [place] [address] Dec, [facility] [address] [id number] [place] [address] Dec, [facility] [address] [facility] [id number] [place] [address] Dec, [facility] [address] [id number] [place] [address] Dec, [facility] [address] [id number] [place] [address] Dec, 2013 [facility] [address] [id number] [place] [address] Dec, 2013 [facility] [address] [facility] [place] [id number] [place] [address] Dec, 2013 [facility] [address] [id number] [place] [address] Dec, 2013 [facility] [address] [id number] [place] [address] Dec, 2013 [facility] [address] [id number] [place] [address] Dec, 2013 [facility] [address] [id number] [facility] [place] [address] Dec, [facility] [address] [facility] [id number] [place] [address] Dec, [facility] [address] [facility] [place] [id number] [place] [address] Dec, [facility] [address] [id number] [place] [address] Dec, [facility] [address] [facility] [id number] [place] [address] Nov, [facility] [address] [facility] [id number] [place] [address] Nov, [facility] [address] [id number] [place] [address] Nov, [facility] [address] [id number] [place] [address] Nov, [facility] [address] [id number] [place] [address] Nov, [facility] [address] [id number] [place] [address] Nov, [facility] [address] [id number] [place] [address] Nov, [facility] [address] [id number] [place] [address] Nov, [facility] [address] [id number] [place] [address] Nov, [facility] [address] [facility] [id number] [place] [address] October, [facility] [address] [id number] [place] [address] October, [facility] [address] [id number] [place] [address] October, [facility] [address] [id number] [place] [address] October, [facility] [address] [id number] [place] [address] October, [facility] [address] [id number] [place] [address] October, [facility] [address] [id number] [place] [address] October, [facility] [address] [id number] [place] [address] October, [facility] [address] [id number] [place] [address] Sep, [facility] [address] [id number] [place] [address] Sep, [facility] [address] [id number] [place] [address] Sep, [facility] [address] [id number] [place] [address] Sep, [facility] [address] [id number] [place] [address] Sep, [facility] [address] [id number] [place] [address] Sep, [facility] [address] [id number] [place] [address] Sep, [facility] [address] [id number] [place] [address] Aug, [facility] [address] [id number] [place] [address] Aug, [facility] [address] [id number] [place] [address] Aug, [facility] [address] [id number] [place] [address] Aug, [facility] [address] [id number] [place] [address] Aug, [facility] [address] [id number] [place] [address] Aug, [facility] [address] [facility] [place] [id number] [place] [address] Jul, [facility] [address] [id number] [place] [address] Jul, [facility] [address] [id number] [place] [address] Jul, [facility] [address] [id number] [place] [address] Jul, [facility] [address] [id number] [place] [address] Jul, [facility] [address] [id number] [place] [address] Jul, [facility] [address] [id number] [place] [address] Jun, [facility] [address] [id number] [place] [address] Jun, [facility] [address] [id number] [place] [address] Jun, [facility] [address] [id number] [place] [address] Jun, [facility] [address] [id number] [place] [address] Jun, [facility] [address] [id number] [place] [address] Jun, [facility] [address] [id number] [place] [address] Jun, [facility] [address] [id number] [place] [address] Jun, [facility] [address] [id number] [place] [address] Jun, [facility] [address] [id number] [place] [address] Jun, [facility] [address] [id number] [place] [address] 14 Jun, 2013 [facility] [address] [id number] [place] [address] 14 Jun, 2013 [facility] [address] [id number] [place] [address] 14 Jun, 2013 [facility] [address] [id number] [place] [address] 30 May, 2013 [facility] [address] [id number] [place] [address] 30 May, 2013 [facility] [address] [id number] [place] [address] 30 May, 2013 [facility] [address] [id number] [place] [address] 30 May, 2013 [facility] [address] [id number] [place] [address] 26 May, 2012 [facility] [address] [id number] [place] [address] 14 May, 2013 [facility] [address] [id number] [place] [address] 14 May, 2013 [facility] [address] [id number] [place] [address] 12 May, 2013 [facility] [address] [id number] [place] [address] 12 May, 2013 [facility] [address] [id number] [place] [address] 11 May, 2013 [facility] [address] [id number] [place] [address] 11 May, 2013 [facility] [address] [id number] [place] [address] 10 May, 2013 [facility] [address] [id number] [place] [address] 10 May, 2013 [facility] [address] [id number] [place] [address] 09 May, 2012 [facility] [address] [id number] [place] [address] 09 May, 2012 [facility] [address] [id number] [place] [address] 08 May, 2012 [facility] [address] [id number] [place] [address] May, 2012 [facility] [address] [id number] [place] [address] May, 2012 [facility] [address] [id number] [place] [address] May, 2012 [facility] [address] [id number] [place] [address] May, 2012 [facility] [address] [id number] [place] [address] May, 2012 [facility] [address] [id number] [place] [address] Apr, [facility] [address] [id number] [place] [address] Apr, [facility] [address] [id number] [place] [address] Apr, [facility] [address] [id number] [place] [address] Apr, [facility] [address] [id number] [place] [address] 08 Mar, 2013 [facility] [address] [id number] [place] [address] 23 Sep, 2012 [facility] [address] [id number] [place] [address] 16 Sep, 2012 [facility] [address] [id number] [place] [address] 13 Sep, 2012 [facility] [address] [id number] [place] [address] 10 Sep, 2012 [facility] [address] [id number] [place] [address] 09 Feb, 2012 [facility] [address] [id number] [place] [address] Feb, [facility] [address] [id number] [place] [address] Jan, [facility] [address] [id number] [place] [address] Jan, [facility] [address] [id number] [place] [address] Jan, [facility] [address] [id number] [place] [address] Dec, [facility] [address] [id number] [place] [address] Dec, [facility] [address] [id number] [place] [address] Dec, [facility] [address] [id number] [place] [address] Dec, [facility] [address] [id number] [place] [address] Dec, [facility] [address] [id number] [place] [address] Nov, [facility] [address] [id number] [place] [address] Nov, [facility] [address] [id number] [place] [address] Nov, [facility] [address] [id number] [place] [address] Nov, [facility] [address] [id number] [place] [address] Nov, [facility] [address] [id number] [place] [address] Nov, [facility] [address] [id number] [place] [address] Nov, [facility] [address] [id number] [place] [address] Nov, [facility] [address] [id number] [place] [address] Nov, [facility] [address] [id number] [place] [address] Nov, [facility] [address] [id number] [place] [address] October, [facility] [address] [id number] [place] [address] October, [facility] [address] [id number] [place] [address] Sep, [facility] [address] [id number] [place] [address] Sep, [facility] [address] [id number] [place] [address] Sep, [facility] [address] [id number] [place] [address] Sep, [facility] [address] [id number] [place] [address] Sep, [facility] [address] [id number] [place] [address] Aug, [facility] [address] [id number] [place] [address] Aug, [facility] [address] [id number] [place] [address] Jul, [facility] [address] [id number] [place] [address] Jul, [facility] [address] [id number] [place] [address] Jun, [facility] [address] [id number] [place] [address] Jun, [facility] [address] [id number] [place] [address] 05 May, 2012 [facility] [address] [id number] [place] [address] May, [facility] [address] [id number] [place] [address] May, [facility] [address] [id number] [place] [address] May, [facility] [address] [id number] [place] [address] Apr, [facility] [address] [id number] [place] [address] Apr, [facility] [address] [id number] [place] [address] Apr, [facility] [address] [id number] [place] [address] Apr, [facility] [address] [id number] [place] [address] Apr, [facility] [address] [id number] [place] [address] Apr, [facility] [address] [id number] [place] [address] Apr, [facility] [address] [id number] [place] [address] Apr, [facility] [address] [id number] [place] [address] Apr, [facility] [address] [id number] [place] [address] 15 Mar, 2012 [facility] [address] [id number] [place] [address] 15 Mar, 2012 [facility] [address] [id number] [place] [address] 05 Feb, 2012 [facility] [address] [id number] [place] [address] Jan, [facility] [address] [id number] [place] [address] Jan, [facility] [address] [id number] [place] [address] Dec, [facility] [address] [id number] [place] [address] Nov, [facility] [address] [id number] [place] [address] Nov, [facility] [address] [id number] [place] [address] October, [facility] [address] [id number] [place] [address] October, [facility] [address] [id number] [place] [address] Sep, [facility] [address] [id number] [place] [address] Sep, [facility] [address] [id number] [place] [address] May, [facility] [address] [id number] [place] [address] Apr, [facility] [address] [id number] [place] [address] Apr, [facility] [address] [id number] [place] [address] Apr, [facility] [address] [id number] [place] [address] 15 Apr, 2011 [facility] [address] [id number] [place] [address] 15 Apr, 2011 [facility] [id number] [place] [address] 10 Apr, 2011 [facility] [address] [id number] [place] [address] 10 Apr, 2011 [facility] [address] [id number] [place] [address] Apr, [facility] [address] [id number] [place] [address] Mar, [facility] [address] [id number] [place] [address] Mar, [facility] [address] [id number] [place] [address] Mar, [facility] [address] [id number] [place] [address] Mar, [facility] [address] [id number] [place] [address] Mar, [facility] [address] [id number] [place] [address] Mar, IMMUNIZATIONS No Known Immunizations SOCIAL HISTORY [...]
--- OUTSIDE RECORDS SUMMARY | 2019-12-24 19:45 | XMS REPORT ---
Author Author Trey ANDRADE Organization [facility] Address [address] [place] [address] Care Team Providers Care Sampling Theory Teacher Name Role Phone SURESH ANDRADE Unavailable PROBLEMS Type Condition ICD9-CM Code OAV98-II Code Onset Dates Condition S tatus SNOMED Code Problem Nondependent 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 Ac tive 074816646 Problem Other chronic pain G89.29 Active 1 08632097 Problem Unspecified epilepsy without mention of intractable ep ilepsy G40.909 Active 81488237 Problem Hyperlipidemia, unspecified E78.5 Ac tive 15759428 Problem Hypertension I10 Active 8834917 3 Problem Esophageal reflux K21.9 Active 23 7414602 Problem Rheumatoid arthritis M06.9 Active 01124725 Problem Cough R05 Active 11290807 Problem Acquired hypothyroidism E03.9 Active 537241091 Problem Unspecified open-angle glaucoma, stage unspecified H40.10X0 Feb, Active 49047614 Problem Presbyopia H52.4 Active 61177272 Problem Insomnia G47.00 Active 641055621 Problem Arthralgia M25.50 Active 38195032 Problem Thyroid nodule E04.1 Active 32327 5005 Problem Anxiety disorder, unspecified F41.9 Active 617907372 Problem Chronic tension-type headache, intractable G44.221 Active 495911992 Problem Neuropathy G62.9 Active 474163395 Problem Goiter E04.9 Active 1829643 Problem Multinodular goiter E04.2 Active 009325434 Problem Carpal tunnel syndrome of left wrist G56.02 Active [id number] Problem Chronic obstructive pulmonary disease, unspecified COPD ty pe J44.9 Active 27588921 Problem BMI 40.0-44.9, adult Z68.41 Active 284969835 Problem Seasonal allergic rhinitis due to pollen J30.1 Active 75014453 Problem Depression F32.9 Active 57533109 Problem Essential hypertension I10 Active 16885395 Problem Depressive disorder F32.9 Active 87810225 Problem Right-sided low back pain without sciatica M54.5 Active 617038239 Problem Reactive airway disease with out complication, unspecified asthma severity, unspecified whether persistent J45.909 Active 253964814410 Problem Urge incontinence of urine N39.41 Act chen 90012514 Problem Abnormal laboratory test R89.9 Activ e 027939074 Problem COPD with exacerbation J44.1 Active 406505590 ALLERGIES No Information ENCOUNTERS Encounter Location Date Diagnosis [place] [address] [address] Sep, [place] [address] [address] Aug, Pelvic pain R10.2 ; Other specified bact erial agents as the cause of diseases classified elsewhere B96.89 and Acute vaginitis N76.0 [place] [address] [address] Apr, Bronchitis J40 [place] [address] [address] Apr, Acute gastritis without hemorrhage, unsp ecified gastritis type K29.00 [place] [address] [address] Mar, [facility] [address] [address] Feb, [place] [address] [address] Feb, Mass of right side of neck R22.1 and Mul tinodular goiter E04.2 [facility] [address] [facility] [id number] [address] [place] [address] Jan, Bronchitis J40 [facility] [address] [address] October, Acquired hypothyroidism E03.9 [place] [address] [address] October, Acute gastritis without hemorrhage, unsp ecified gastritis type K29.00 ; Epigastric pain R10.13 ; Essential hypertension I10 ; Screening for colon cancer Z12.11 and BMI 40.0-44.9, adult Z68.41 [place] [address] [address] October, [facility] [place] [address] [address] October, Chest pain R07.9 and Morbid obesity E66.01 [facility] [address] [address] Sep, Generalized abdominal pain R 10.84 ; Morbid obesity E66.01 ; Non-intractable vomiting with nausea, unspecified vomiting type R11.2 and Seasonal allergic rhinitis due to pollen J30.1 [facility] [address] [address] Jul, COPD with exacerbation J44.1 ; Viral upper respiratory tract infection J06.9 and Morbid obesity E66.01 [facility] [place] [address] [address] Jun, Viral upper respiratory trac t infection J06.9 [place] [address] [address] Apr, Abnormal laboratory test R89.9 [place] [address] [address] Apr, Abnormal laboratory test R89.9 [place] [address] [address] Apr, Abnormal laboratory test R89.9 [place] [address] [address] Apr, [place] [address] [address] Apr, [place] [address] [address] Apr, Nonintractable episodic headache, unspec ified headache type R51 ; Urge incontinence of urine N39.41 ; BMI 40.0-44.9, adult Z68.41 ; Myalgia M79.10 and Acute cystitis without hematuria N30.00 [facility] [address] [address] Mar, Nasal congestion R09.81 ; Low back pain M54.5 ; Reactive airway disease without complication, unspecified asthma severity, unspecified whether persistent J45.909 ; Other chronic pain G89.29 ; Acute cystitis with hematuria N30.01 and BMI 40.0-44.9, adult Z68.41 [place] [address] [address] Mar, Acute cystitis with hematuria N30.01 [facility] [address] [facility] [id number] [address] [place] [address] Mar, BMI 40.0-44.9, adult Z68.41 ; Acute cystitis with hematuria N30.01 ; Acute bilateral low back pain without sciatica M54.5 and Nausea R11.0 [place] [address] [address] Mar, Hypertension I10 ; Acquired hypothyroidi sm E03.9 ; Esophageal reflux K21.9 ; Chronic obstructive pulmonary disease, unspecified COPD type J44.9 and BMI 40.0-44.9, adult Z68.41 [place] [address] [address] Mar, Hypertension I10 [place] [address] [address] Nov, Hyperlipidemia, unspecified E78.5 [place] [address] [address] October, Chest pain, unspecified type R07.9 and A cquired hypothyroidism E03.9 [place] [address] [address] October, Chest pain, unspecified type R07.9 ; Fam demetrius history of coronary artery disease Z82.49 ; Carpal tunnel syndrome of left wrist G56.02 ; Hypertension I10 ; Esophageal reflux K21.9 ; Arthralgia M25.50 ; Acquired hypothyroidism E03.9 ; Cough R05 ; Nausea R11.0 ; Weight gain R63.5 and BMI 45.0-49.9, adult Z68.[address] [address] Jun, Acquired hypothyroidism E03.9 and Cough R05 [address] [address] May, [address] [address] Feb, Tarsal tunnel syndrome of both lower ext remities G57.53 and Neuropathy G62.[address] [address] Dec, Pleuritis R09.[address] [address] Nov, [address] [address] October, Arthralgia, unspecified joint M25.50 and Allergy, initial encounter T78.40XA [address] [address] October, [address] [address] October, Acute recurrent maxillary sinusitis J01. 01 and Arthralgia M25.[address] [address] Sep, Pharyngitis due to other organism J02.[address] [address] Aug, Acute nasopharyngitis J[address] [place] [address] Aug, Multinodular goiter E04.2 [place] [address] [address] Aug, Thyroid nodule E04.1 [place] [address] [address] 17 Jul, 2016 Tarsal tunnel syndrome of both lower ext remities G57.53 [place] [address] [address] Jun, Pneumonia due to infectious organism, un specified laterality, unspecified part of lung J18.9 [place] [address] [address] Jun, Bronchospasm with bronchitis, acute J20. 9 [place] [address] [address] May, Acute non-recurrent frontal sinusitis J0 1.10 [place] [address] [address] May, Flat foot [pes planus] (acquired), left foot M21.42 ; Flat foot [pes planus] (acquired), right foot M21.41 and Neuropathy G62.9 [place] [address] [address] Apr, Chronic tension-type headache, intractab le G44.221 ; Right lower quadrant abdominal pain R10.31 ; Cervicalgia M54.2 ; Acute gastritis without hemorrhage, unspecified gastritis type K29.00 and Hypertension I10 [place] [address] [address] Mar, Depression F32.9 and Anxiety disorder, u nspecified F41.9 [place] [address] [address] Feb, Depressive disorder F32.9 and Anxiety di sorder, unspecified F41.9 [place] [address] [address] Jan, Dysuria R30.0 ; Lower abdominal pain R10 .30 ; Acute bilateral low back pain without sciatica M54.5 ; Nausea and vomiting, unspecified intactability, vomiting of unspecified type R11.2 ; Pain in right foot M79.671 and Pain of left foot M79.672 [place] [address] [address] Dec, Urinary tract infection, site not specif ied N39.0 [place] [address] [address] Dec, [place] [address] [address] Nov, [place] [address] [address] Nov, Dysuria R30.0 [place] [address] [address] Nov, Dysuria R30.0 and Acute cystitis with he maturia N30.01 [place] [address] [address] October, Nausea R11.0 [place] [address] [address] October, Thyroid nodule E04.1 ; Carpal tunnel syn drome, left upper limb G56.02 ; Carpal tunnel syndrome, right upper limb G56.01 and Constipation, unspecified constipation type K59.00 [place] [address] [address] October, [place] [address] [address] October, Thyroid nodule E04.1 [place] [address] [address] October, Cold thyroid nodule E04.1 [place] [address] [address] October, [place] [address] [address] Sep, Thyroid nodule E04.1 [place] [address] [address] Sep, Thyroid nodule E04.1 [place] [address] [address] Sep, Thyroid nodule E04.1 ; Hypertension I10 ; Esophageal reflux K21.9 and Hyperlipidemia, unspecified E78.5 [place] [address] [address] Aug, Other chronic pain G89.29 ; Sinusitis J3 2.9 and Hypertension I10 [place] [address] [address] 29 Jul, [address] [address] 15 Jul, 2015 [place] [address] [address] 10 Jul, 2015 Insomnia G47.00 and Arthralgia M25.[address] [address] 10 Jul, 2015 Depressive disorder F32.9 and Anxiety di sorder, unspecified F41.[address] [address] May, Right-sided low back pain without sciati ca M54.5 and Depression F32.[address] [address] Apr, Hematuria R31.[address] [address] Mar, Other chronic pain G89.[address] [address] Mar, Other chronic pain G89.29 [facility] [address] [place] [id number] [place] [address] Feb, [facility] [address] [address] Feb, Other chronic pain 338.29 ; Dysuria 788. 1 ; UTI (urinary tract infection) 599.0 ; Insomnia 780.52 ; Hot flashes 627.2 and Hypertension 401.9 [facility] [address] [address] Feb, Dysuria 788.1 [facility] [address] [address] Feb, [facility] [address] [address] Jan, [facility] [address] [address] Jan, [facility] [address] [address] Jan, Fibromyalgia 729.1 ; Hypertension 401.9 ; Dysthymia 300.4 and Hot flashes 627.2 [facility] [address] [place] [id number] [place] [address] Dec, [facility] [address] [address] Dec, [facility] [address] [address] Dec, [facility] [address] [address] Nov, Other chronic pain 338.29 [facility] [address] [address] October, [facility] [address] [address] October, [facility] [address] [address] Sep, [facility] [address] [id number] [place] [address] 13 Sep, 2014 [facility] [address] [id number] [place] [address] Aug, [facility] [address] [id number] [place] [address] Aug, [facility] [address] [id number] [place] [address] Aug, [facility] [address] [id number] [place] [address] Aug, [facility] [address] [id number] [place] [address] Aug, [facility] [address] [id number] [place] [address] Aug, [facility] [address] [id number] [place] [address] Aug, [facility] [address] [id number] [place] [address] Aug, [facility] [address] [id number] [place] [address] Aug, [facility] [address] [id number] [place] [address] Aug, [facility] [address] [id number] [place] [address] Aug, [facility] [address] [id number] [place] [address] Aug, [facility] [address] [id number] [place] [address] Aug, [facility] [address] [id number] [place] [address] Aug, [facility] [address] [id number] [place] [address] Jul, [facility] [address] [id number] [place] [address] Jul, [facility] [address] [id number] [place] [address] Jul, [facility] [address] [id number] [place] [address] Jul, [facility] [address] [id number] [place] [address] Jul, [facility] [address] [id number] [place] [address] Jul, [facility] [address] [id number] [place] [address] Jun, [facility] [address] [id number] [place] [address] Jun, [facility] [address] [id number] [place] [address] Jun, [facility] [address] [id number] [place] [address] Jun, [facility] [address] [id number] [place] [address] May, [facility] [address] [id number] [place] [address] May, [facility] [address] [id number] [place] [address] May, [facility] [address] [id number] [place] [address] May, [facility] [address] [id number] [place] [address] May, [facility] [address] [id number] [place] [address] May, [facility] [address] [id number] [place] [address] May, [facility] [address] [id number] [place] [address] May, [facility] [address] [id number] [place] [address] May, [facility] [address] [id number] [place] [address] May, [facility] [address] [id number] [place] [address] Apr, [facility] [address] [id number] [place] [address] Apr, [facility] [address] [id number] [place] [address] Apr, [facility] [address] [id number] [place] [address] Apr, [facility] [address] [id number] [place] [address] Apr, [facility] [address] [id number] [place] [address] Apr, [facility] [address] [id number] [place] [address] Apr, [facility] [address] [id number] [place] [address] Apr, [facility] [address] [id number] [place] [address] Apr, [facility] [address] [id number] [place] [address] Mar, [facility] [address] [id number] [place] [address] Mar, [facility] [address] [id number] [place] [address] Mar, [facility] [address] [place] [id number] [place] [address] Mar, [facility] [address] [id number] [place] [address] Mar, [facility] [address] [id number] [place] [address] Mar, [facility] [address] [facility] [id number] [place] [address] 08 Mar, 2013 [facility] [address] [id number] [place] [address] 08 Mar, 2013 [facility] [address] [id number] [place] [address] 30 Sep, 2013 [facility] [address] [id number] [place] [address] 30 Sep, 2013 [facility] [address] [facility] [id number] [place] [address] 24 Sep, 2013 [facility] [address] [id number] [place] [address] 24 Sep, 2013 [facility] [address] [id number] [place] [address] 22 Sep, 2013 [facility] [address] [id number] [place] [address] 22 Sep, 2013 [facility] [address] [id number] [place] [address] 10 Sep, 2013 [facility] [address] [id number] [place] [address] 10 Sep, 2013 [facility] [address] [id number] [place] [address] 03 Sep, 2013 [facility] [address] [id number] [place] [address] 03 Sep, 2013 [facility] [address] [id number] [place] [address] 03 Sep, 2013 [facility] [address] [id number] [place] [address] 03 Sep, 2013 [facility] [address] [id number] [place] [address] 03 Sep, 2013 [facility] [address] [id number] [place] [address] 03 Sep, 2013 [facility] [address] [id number] [place] [address] Jan, 2013 [facility] [address] [id number] [place] [address] Jan, [facility] [address] [facility] [id number] [place] [address] Dec, [facility] [address] [facility] [id number] [place] [address] Dec, [facility] [address] [facility] [id number] [place] [address] Dec, [facility] [address] [facility] [id number] [place] [address] Dec, [facility] [address] [facility] [id number] [place] [id number] Dec, [facility] [address] [id number] [place] [address] Dec, [facility] [address] [id number] [place] [address] Dec, [facility] [address] [facility] [id number] [place] [address] Dec, [facility] [address] [id number] [place] [address] Dec, [facility] [address] [id number] [place] [address] Dec, 2013 [facility] [address] [id number] [place] [address] Dec, 2013 [facility] [address] [facility] [id number] [place] [address] Dec, 2013 [facility] [address] [id number] [place] [address] Dec, 2013 [facility] [address] [id number] [place] [address] Dec, 2013 [facility] [address] [id number] [place] [address] Dec, 2013 [facility] [address] [id number] [place] [address] Dec, [facility] [address] [facility] [id number] [place] [address] Dec, [facility] [address] [facility] [id number] [place] [address] Dec, [facility] [address] [id number] [place] [address] Dec, [facility] [address] [facility] [id number] [place] [address] Nov, [facility] [address] [facility] [id number] [place] [address] Nov, [facility] [address] [id number] [place] [address] Nov, [facility] [address] [id number] [place] [address] Nov, [facility] [address] [id number] [place] [address] Nov, [facility] [address] [id number] [place] [address] Nov, [facility] [address] [id number] [place] [address] Nov, [facility] [address] [id number] [place] [address] Nov, [facility] [address] [id number] [place] [address] Nov, [facility] [address] [facility] [id number] [place] [address] October, [facility] [address] [id number] [place] [address] October, [facility] [address] [id number] [place] [address] October, [facility] [address] [id number] [place] [address] October, [facility] [address] [id number] [place] [address] October, [facility] [address] [id number] [place] [address] October, [facility] [address] [id number] [place] [address] October, [facility] [address] [id number] [place] [address] October, [facility] [address] [id number] [place] [address] Sep, [facility] [address] [id number] [place] [address] Sep, [facility] [address] [id number] [place] [address] Sep, [facility] [address] [id number] [place] [address] Sep, [facility] [address] [id number] [place] [address] Sep, [facility] [address] [id number] [place] [address] Sep, [facility] [address] [id number] [place] [address] Sep, [facility] [address] [id number] [place] [address] Aug, [facility] [address] [id number] [place] [address] Aug, [facility] [address] [id number] [place] [address] Aug, [facility] [address] [id number] [place] [address] Aug, [facility] [address] [id number] [place] [address] Aug, [facility] [address] [id number] [place] [address] Aug, [facility] [address] [facility] [id number] [place] [address] Jul, [facility] [address] [id number] [place] [address] Jul, [facility] [address] [id number] [place] [address] Jul, [facility] [address] [id number] [place] [address] Jul, [facility] [address] [id number] [place] [address] Jul, [facility] [address] [id number] [place] [id number] Jul, [facility] [address] [id number] [place] [address] Jun, [facility] [address] [id number] [place] [address] Jun, [facility] [address] [id number] [place] [address] Jun, [facility] [address] [id number] [place] [address] Jun, [facility] [address] [id number] [place] [address] Jun, [facility] [address] [id number] [place] [address] Jun, [facility] [address] [id number] [place] [address] Jun, [facility] [address] [id number] [place] [address] Jun, [facility] [address] [id number] [place] [address] Jun, [facility] [address] [id number] [place] [address] Jun, [facility] [address] [id number] [place] [address] 14 Jun, 2013 [facility] [address] [id number] [place] [address] 14 Jun, 2013 [facility] [address] [id number] [place] [address] 14 Jun, 2013 [facility] [address] [id number] [place] [address] 30 May, 2013 [facility] [address] [id number] [place] [address] 30 May, 2013 [facility] [address] [id number] [place] [address] 30 May, 2013 [facility] [address] [id number] [place] [address] 30 May, 2013 [facility] [address] [id number] [place] [address] 26 May, 2012 [facility] [address] [id number] [place] [address] 14 May, 2013 [facility] [address] [id number] [place] [address] 14 May, 2013 [facility] [address] [id number] [place] [address] 12 May, 2013 [facility] [address] [id number] [place] [address] 12 May, 2013 [facility] [address] [id number] [place] [address] 11 May, 2013 [facility] [address] [id number] [place] [address] 11 May, 2013 [facility] [address] [id number] [place] [address] 10 May, 2013 [facility] [address] [id number] [place] [address] 10 May, 2013 [facility] [address] [id number] [place] [address] 09 May, 2012 [facility] [address] [id number] [place] [address] 09 May, 2012 [facility] [address] [id number] [place] [address] 08 May, 2012 [facility] [address] [id number] [place] [address] May, 2012 [facility] [address] [id number] [place] [address] May, 2012 [facility] [address] [id number] [place] [address] May, 2012 [facility] [address] [id number] [place] [address] May, 2012 [facility] [address] [id number] [place] [address] May, 2012 [facility] [address] [id number] [place] [address] Apr, [facility] [address] [id number] [place] [address] Apr, [facility] [address] [id number] [place] [address] Apr, [facility] [address] [id number] [place] [address] Apr, [facility] [address] [id number] [place] [address] 08 Mar, 2013 [facility] [address] [id number] [place] [address] 23 Sep, 2012 [facility] [address] [id number] [place] [address] 16 Sep, 2012 [facility] [address] [id number] [place] [address] 13 Sep, 2012 [facility] [address] [id number] [place] [address] 10 Sep, 2012 [facility] [address] [id number] [place] [address] 09 Feb, 2012 [facility] [id number] [place] [address] Feb, [facility] [address] [id number] [place] [address] Jan, [facility] [address] [id number] [place] [address] Jan, [facility] [address] [id number] [place] [address] Jan, [facility] [id number] [place] [address] Dec, [facility] [address] [id number] [place] [address] Dec, [facility] [address] [id number] [place] [address] Dec, [facility] [address] [id number] [place] [address] Dec, [facility] [address] [id number] [place] [address] Dec, [facility] [address] [id number] [place] [address] Nov, [facility] [address] [id number] [place] [address] Nov, [facility] [address] [id number] [place] [address] Nov, [facility] [address] [id number] [place] [address] Nov, [facility] [address] [id number] [place] [address] Nov, [facility] [address] [id number] [place] [address] Nov, [facility] [address] [id number] [place] [address] Nov, [facility] [address] [id number] [place] [address] Nov, [facility] [address] [id number] [place] [address] Nov, [facility] [address] [id number] [place] [address] Nov, [facility] [address] [id number] [place] [address] October, [facility] [address] [id number] [place] [address] October, [facility] [address] [id number] [place] [address] Sep, [facility] [address] [id number] [place] [address] Sep, [facility] [address] [id number] [place] [address] Sep, [facility] [address] [id number] [place] [address] Sep, [facility] [address] [id number] [place] [address] Sep, [facility] [address] [id number] [place] [address] Aug, [facility] [address] [id number] [place] [address] Aug, [facility] [address] [id number] [place] [address] Jul, [facility] [address] [id number] [place] [address] Jul, [facility] [address] [id number] [place] [address] Jun, [facility] [address] [id number] [place] [address] Jun, [facility] [address] [id number] [place] [address] 05 May, 2012 [facility] [address] [id number] [place] [address] May, [facility] [address] [id number] [place] [address] May, [facility] [address] [id number] [place] [address] May, [facility] [address] [id number] [place] [address] Apr, [facility] [address] [id number] [place] [address] Apr, [facility] [address] [id number] [place] [address] Apr, [facility] [address] [id number] [place] [address] Apr, [facility] [address] [id number] [place] [address] Apr, [facility] [address] [id number] [place] [address] Apr, [facility] [address] [id number] [place] [address] Apr, [facility] [address] [id number] [place] [address] Apr, [facility] [address] [id number] [place] [address] Apr, [facility] [address] [id number] [place] [address] 15 Mar, 2012 [facility] [address] [id number] [place] [address] 15 Mar, 2012 [facility] [address] [id number] [place] [address] 05 Feb, 2012 [facility] [address] [id number] [place] [address] Jan, [facility] [address] [id number] [place] [address] Jan, [facility] [address] [id number] [place] [address] Dec, [facility] [address] [id number] [place] [address] Nov, [facility] [address] [id number] [place] [address] Nov, [facility] [address] [id number] [place] [address] October, [facility] [address] [id number] [place] [address] October, [facility] [address] [id number] [place] [address] Sep, [facility] [address] [id number] [place] [address] Sep, [facility] [address] [id number] [place] [address] May, [facility] [address] [id number] [place] [address] Apr, [facility] [address] [id number] [place] [address] Apr, [facility] [address] [id number] [place] [address] Apr, [facility] [address] [id number] [place] [address] 15 Apr, 2011 [facility] [address] [id number] [place] [address] 15 Apr, 2011 [facility] [id number] [place] [address] 10 Apr, 2011 [facility] [address] [id number] [place] [address] 10 Apr, 2011 [facility] [address] [id number] [place] [address] Apr, [facility] [address] [id number] [place] [address] Mar, [facility] [address] [id number] [place] [address] Mar, [facility] [address] [id number] [place] [address] Mar, [facility] [address] [id number] [place] [address] Mar, [facility] [address] [id number] [place] [address] Mar, [facility] [address] [id number] [place] [address] Mar, IMMUNIZATIONS No Known Immunizations SOCIAL HISTORY [...]
--- OUTSIDE RECORDS SUMMARY | 2019-12-24 19:45 | XMS REPORT ---
Author Author Trey ANDRADE Organization [facility] Address [address] [place] [address] Care Team Providers Care Financial Adviser Name Role Phone SURESH ANDRADE Unavailable PROBLEMS Type Condition ICD9-CM Code RHY55-ZO Code Onset Dates Condition S tatus SNOMED Code Problem Nondependent 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 Ac tive 391259525 Problem Other chronic pain G89.29 Active 1 29368577 Problem Unspecified epilepsy without mention of intractable ep ilepsy G40.909 Active 82855950 Problem Hyperlipidemia, unspecified E78.5 Ac tive 35249207 Problem Hypertension I10 Active 8513738 3 Problem Esophageal reflux K21.9 Active 23 0905551 Problem Rheumatoid arthritis M06.9 Active 48383209 Problem Cough R05 Active 78440221 Problem Acquired hypothyroidism E03.9 Active 827823748 Problem Unspecified open-angle glaucoma, stage unspecified H40.10X0 Feb, Active 68542117 Problem Presbyopia H52.4 Active 62996153 Problem Insomnia G47.00 Active 729400141 Problem Arthralgia M25.50 Active 66964121 Problem Thyroid nodule E04.1 Active 99515 5005 Problem Anxiety disorder, unspecified F41.9 Active 208465925 Problem Chronic tension-type headache, intractable G44.221 Active 638189766 Problem Neuropathy G62.9 Active 140911147 Problem Goiter E04.9 Active 5949621 Problem Multinodular goiter E04.2 Active 005774044 Problem Carpal tunnel syndrome of left wrist G56.02 Active [id number] Problem Chronic obstructive pulmonary disease, unspecified COPD ty pe J44.9 Active 75531742 Problem BMI 40.0-44.9, adult Z68.41 Active 384015511 Problem Seasonal allergic rhinitis due to pollen J30.1 Active 98169980 Problem Depression F32.9 Active 66297034 Problem Essential hypertension I10 Active 00029533 Problem Depressive disorder F32.9 Active 93087780 Problem Right-sided low back pain without sciatica M54.5 Active 825585296 Problem Reactive airway disease with out complication, unspecified asthma severity, unspecified whether persistent J45.909 Active 196322260000 Problem Urge incontinence of urine N39.41 Act chen 97907553 Problem Abnormal laboratory test R89.9 Activ e 876016575 Problem COPD with exacerbation J44.1 Active 815301811 ALLERGIES No Information ENCOUNTERS Encounter Location Date Diagnosis [place] [address] [address] Sep, [place] [address] [address] Aug, Pelvic pain R10.2 ; Other specified bact erial agents as the cause of diseases classified elsewhere B96.89 and Acute vaginitis N76.0 [place] [address] [address] Apr, Bronchitis J40 [place] [address] [address] Apr, Acute gastritis without hemorrhage, unsp ecified gastritis type K29.00 [place] [address] [address] Mar, [facility] [address] [address] Feb, [place] [address] [address] Feb, Mass of right side of neck R22.1 and Mul tinodular goiter E04.2 [facility] [address] [facility] [id number] [address] [place] [address] Jan, Bronchitis J40 [facility] [address] [address] October, Acquired hypothyroidism E03.9 [place] [address] [address] October, Acute gastritis without hemorrhage, unsp ecified gastritis type K29.00 ; Epigastric pain R10.13 ; Essential hypertension I10 ; Screening for colon cancer Z12.11 and BMI 40.0-44.9, adult Z68.41 [place] [address] [address] October, [facility] [place] [address] [address] October, Chest pain R07.9 and Morbid obesity E66.01 [facility] [address] [address] Sep, Generalized abdominal pain R 10.84 ; Morbid obesity E66.01 ; Non-intractable vomiting with nausea, unspecified vomiting type R11.2 and Seasonal allergic rhinitis due to pollen J30.1 [facility] [address] [address] Jul, COPD with exacerbation J44.1 ; Viral upper respiratory tract infection J06.9 and Morbid obesity E66.01 [facility] [place] [address] [address] Jun, Viral upper respiratory trac t infection J06.9 [place] [address] [address] Apr, Abnormal laboratory test R89.9 [place] [address] [address] Apr, Abnormal laboratory test R89.9 [place] [address] [address] Apr, Abnormal laboratory test R89.9 [place] [address] [address] Apr, [place] [address] [address] Apr, [place] [address] [address] Apr, Nonintractable episodic headache, unspec ified headache type R51 ; Urge incontinence of urine N39.41 ; BMI 40.0-44.9, adult Z68.41 ; Myalgia M79.10 and Acute cystitis without hematuria N30.00 [facility] [address] [address] Mar, Nasal congestion R09.81 ; Low back pain M54.5 ; Reactive airway disease without complication, unspecified asthma severity, unspecified whether persistent J45.909 ; Other chronic pain G89.29 ; Acute cystitis with hematuria N30.01 and BMI 40.0-44.9, adult Z68.41 [place] [address] [address] Mar, Acute cystitis with hematuria N30.01 [facility] [address] [facility] [id number] [address] [place] [address] Mar, BMI 40.0-44.9, adult Z68.41 ; Acute cystitis with hematuria N30.01 ; Acute bilateral low back pain without sciatica M54.5 and Nausea R11.0 [place] [address] [address] Mar, Hypertension I10 ; Acquired hypothyroidi sm E03.9 ; Esophageal reflux K21.9 ; Chronic obstructive pulmonary disease, unspecified COPD type J44.9 and BMI 40.0-44.9, adult Z68.41 [place] [address] [address] Mar, Hypertension I10 [place] [address] [address] Nov, Hyperlipidemia, unspecified E78.5 [place] [address] [address] October, Chest pain, unspecified type R07.9 and A cquired hypothyroidism E03.9 [place] [address] [address] October, Chest pain, unspecified type R07.9 ; Fam demetrius history of coronary artery disease Z82.49 ; Carpal tunnel syndrome of left wrist G56.02 ; Hypertension I10 ; Esophageal reflux K21.9 ; Arthralgia M25.50 ; Acquired hypothyroidism E03.9 ; Cough R05 ; Nausea R11.0 ; Weight gain R63.5 and BMI 45.0-49.9, adult Z68.[address] [address] Jun, Acquired hypothyroidism E03.9 and Cough R05 [address] [address] May, [address] [address] Feb, Tarsal tunnel syndrome of both lower ext remities G57.53 and Neuropathy G62.[address] [address] Dec, Pleuritis R09.[address] [address] Nov, [address] [address] October, Arthralgia, unspecified joint M25.50 and Allergy, initial encounter T78.40XA [address] [address] October, [address] [address] October, Acute recurrent maxillary sinusitis J01. 01 and Arthralgia M25.[address] [address] Sep, Pharyngitis due to other organism J02.[address] [address] Aug, Acute nasopharyngitis J00 [address] [place] [address] Aug, Multinodular goiter E04.2 [place] [address] [address] Aug, Thyroid nodule E04.1 [place] [address] [address] 17 Jul, 2016 Tarsal tunnel syndrome of both lower ext remities G57.53 [place] [address] [address] Jun, Pneumonia due to infectious organism, un specified laterality, unspecified part of lung J18.9 [place] [address] [address] Jun, Bronchospasm with bronchitis, acute J20. 9 [place] [address] [address] May, Acute non-recurrent frontal sinusitis J0 1.10 [place] [address] [address] May, Flat foot [pes planus] (acquired), left foot M21.42 ; Flat foot [pes planus] (acquired), right foot M21.41 and Neuropathy G62.9 [place] [address] [address] Apr, Chronic tension-type headache, intractab le G44.221 ; Right lower quadrant abdominal pain R10.31 ; Cervicalgia M54.2 ; Acute gastritis without hemorrhage, unspecified gastritis type K29.00 and Hypertension I10 [place] [address] [address] Mar, Depression F32.9 and Anxiety disorder, u nspecified F41.9 [place] [address] [address] Feb, Depressive disorder F32.9 and Anxiety di sorder, unspecified F41.9 [place] [address] [address] Jan, Dysuria R30.0 ; Lower abdominal pain R10 .30 ; Acute bilateral low back pain without sciatica M54.5 ; Nausea and vomiting, unspecified intactability, vomiting of unspecified type R11.2 ; Pain in right foot M79.671 and Pain of left foot M79.672 [place] [address] [address] Dec, Urinary tract infection, site not specif ied N39.0 [place] [address] [address] Dec, [place] [address] [address] Nov, [place] [address] [address] Nov, Dysuria R30.0 [place] [address] [address] Nov, Dysuria R30.0 and Acute cystitis with he maturia N30.01 [place] [address] [address] October, Nausea R11.0 [place] [address] [address] October, Thyroid nodule E04.1 ; Carpal tunnel syn drome, left upper limb G56.02 ; Carpal tunnel syndrome, right upper limb G56.01 and Constipation, unspecified constipation type K59.00 [place] [address] [address] October, [place] [address] [address] October, Thyroid nodule E04.1 [place] [address] [address] October, Cold thyroid nodule E04.1 [place] [address] [address] October, [place] [address] [address] Sep, Thyroid nodule E04.1 [place] [address] [address] Sep, Thyroid nodule E04.1 [place] [address] [address] Sep, Thyroid nodule E04.1 ; Hypertension I10 ; Esophageal reflux K21.9 and Hyperlipidemia, unspecified E78.5 [place] [address] [address] Aug, Other chronic pain G89.29 ; Sinusitis J3 2.9 and Hypertension I10 [place] [address] [address] 29 Jul, [address] [address] 15 Jul, 2015 [place] [address] [address] 10 Jul, 2015 Insomnia G47.00 and Arthralgia M25.[address] [address] 10 Jul, 2015 Depressive disorder F32.9 and Anxiety di sorder, unspecified F41.[address] [address] May, Right-sided low back pain without sciati ca M54.5 and Depression F32.[address] [address] Apr, Hematuria R31.[address] [address] Mar, Other chronic pain G89.[address] [address] Mar, Other chronic pain G89.29 [facility] [address] [place] [id number] [place] [address] Feb, [facility] [address] [address] Feb, Other chronic pain 338.29 ; Dysuria 788. 1 ; UTI (urinary tract infection) 599.0 ; Insomnia 780.52 ; Hot flashes 627.2 and Hypertension 401.9 [facility] [address] [address] Feb, Dysuria 788.1 [facility] [address] [address] Feb, [facility] [address] [address] Jan, [facility] [address] [address] Jan, [facility] [address] [address] Jan, Fibromyalgia 729.1 ; Hypertension 401.9 ; Dysthymia 300.4 and Hot flashes 627.2 [facility] [address] [place] [id number] [place] [address] Dec, [facility] [address] [address] Dec, [facility] [address] [address] Dec, [facility] [address] [address] Nov, Other chronic pain 338.29 [facility] [address] [address] October, [facility] [address] [address] October, [facility] [address] [address] Sep, [facility] [address] [id number] [place] [address] 13 Sep, 2014 [facility] [address] [id number] [place] [address] Aug, [facility] [address] [id number] [place] [address] Aug, [facility] [address] [id number] [place] [address] Aug, [facility] [address] [id number] [place] [address] Aug, [facility] [address] [id number] [place] [address] Aug, [facility] [address] [id number] [place] [address] Aug, [facility] [address] [id number] [place] [address] Aug, [facility] [address] [id number] [place] [address] Aug, [facility] [address] [id number] [place] [address] Aug, [facility] [address] [id number] [place] [address] Aug, [facility] [address] [id number] [place] [address] Aug, [facility] [address] [id number] [place] [address] Aug, [facility] [address] [id number] [place] [address] Aug, [facility] [address] [id number] [place] [address] Aug, [facility] [address] [id number] [place] [address] Jul, [facility] [address] [id number] [place] [address] Jul, [facility] [address] [id number] [place] [address] Jul, [facility] [address] [id number] [place] [address] Jul, [facility] [address] [id number] [place] [address] Jul, [facility] [address] [id number] [place] [address] Jul, [facility] [address] [id number] [place] [address] Jun, [facility] [address] [id number] [place] [address] Jun, [facility] [address] [id number] [place] [address] Jun, [facility] [address] [id number] [place] [address] Jun, [facility] [address] [id number] [place] [address] May, [facility] [address] [id number] [place] [address] May, [facility] [address] [id number] [place] [address] May, [facility] [address] [id number] [place] [address] May, [facility] [address] [id number] [place] [address] May, [facility] [address] [id number] [place] [address] May, [facility] [address] [id number] [place] [address] May, [facility] [address] [id number] [place] [address] May, [facility] [address] [id number] [place] [address] May, [facility] [address] [id number] [place] [address] May, [facility] [address] [id number] [place] [address] Apr, [facility] [address] [id number] [place] [address] Apr, [facility] [address] [id number] [place] [address] Apr, [facility] [address] [id number] [place] [address] Apr, [facility] [address] [id number] [place] [address] Apr, [facility] [address] [id number] [place] [address] Apr, [facility] [address] [id number] [place] [address] Apr, [facility] [address] [id number] [place] [address] Apr, [facility] [address] [id number] [place] [address] Apr, [facility] [address] [id number] [place] [address] Mar, [facility] [address] [id number] [place] [address] Mar, [facility] [address] [id number] [place] [address] Mar, [facility] [address] [place] [id number] [place] [address] Mar, [facility] [address] [id number] [place] [address] Mar, [facility] [address] [id number] [place] [address] Mar, [facility] [address] [facility] [id number] [place] [address] 08 Mar, 2013 [facility] [address] [id number] [place] [address] 08 Mar, 2013 [facility] [address] [id number] [place] [address] 30 Sep, 2013 [facility] [address] [id number] [place] [address] 30 Sep, 2013 [facility] [address] [facility] [id number] [place] [address] 24 Sep, 2013 [facility] [address] [id number] [place] [address] 24 Sep, 2013 [facility] [address] [id number] [place] [address] 22 Sep, 2013 [facility] [address] [id number] [place] [address] 22 Sep, 2013 [facility] [address] [id number] [place] [address] 10 Sep, 2013 [facility] [address] [id number] [place] [address] 10 Sep, 2013 [facility] [address] [id number] [place] [address] 03 Sep, 2013 [facility] [address] [id number] [place] [address] 03 Sep, 2013 [facility] [address] [id number] [place] [address] 03 Sep, 2013 [facility] [address] [id number] [place] [address] 03 Sep, 2013 [facility] [address] [id number] [place] [address] 03 Sep, 2013 [facility] [address] [id number] [place] [address] 03 Sep, 2013 [facility] [address] [id number] [facility] [place] [address] Jan, 2013 [facility] [address] [id number] [place] [address] Jan, [facility] [address] [facility] [id number] [place] [address] Dec, [facility] [address] [facility] [id number] [place] [address] Dec, [facility] [address] [facility] [id number] [place] [address] Dec, [facility] [address] [facility] [id number] [place] [address] Dec, [facility] [address] [facility] [id number] [place] [id number] Dec, [facility] [address] [id number] [place] [address] Dec, [facility] [address] [id number] [place] [address] Dec, [facility] [address] [facility] [id number] [place] [address] Dec, [facility] [address] [id number] [place] [address] Dec, [facility] [address] [id number] [place] [address] Dec, 2013 [facility] [address] [id number] [place] [address] Dec, 2013 [facility] [address] [facility] [id number] [place] [address] Dec, 2013 [facility] [address] [id number] [place] [address] Dec, 2013 [facility] [address] [id number] [place] [address] Dec, 2013 [facility] [address] [id number] [place] [address] Dec, 2013 [facility] [address] [id number] [facility] [place] [address] Dec, [facility] [address] [facility] [id number] [place] [address] Dec, [facility] [address] [facility] [id number] [place] [address] Dec, [facility] [address] [id number] [place] [address] Dec, [facility] [address] [facility] [id number] [place] [address] Nov, [facility] [address] [facility] [id number] [place] [address] Nov, [facility] [address] [id number] [place] [address] Nov, [facility] [address] [id number] [place] [address] Nov, [facility] [address] [id number] [place] [address] Nov, [facility] [address] [id number] [place] [address] Nov, [facility] [address] [id number] [place] [address] Nov, [facility] [address] [id number] [place] [address] Nov, [facility] [address] [id number] [place] [address] Nov, [facility] [address] [facility] [id number] [place] [address] October, [facility] [address] [id number] [place] [address] October, [facility] [address] [id number] [place] [address] October, [facility] [address] [id number] [place] [address] October, [facility] [address] [id number] [place] [address] October, [facility] [address] [id number] [place] [address] October, [facility] [address] [id number] [place] [address] October, [facility] [address] [id number] [place] [address] October, [facility] [address] [id number] [place] [address] Sep, [facility] [address] [id number] [place] [address] Sep, [facility] [address] [id number] [place] [address] Sep, [facility] [address] [id number] [place] [address] Sep, [facility] [address] [id number] [place] [address] Sep, [facility] [address] [id number] [place] [address] Sep, [facility] [address] [id number] [place] [address] Sep, [facility] [address] [id number] [place] [address] Aug, [facility] [address] [id number] [place] [address] Aug, [facility] [address] [id number] [place] [address] Aug, [facility] [address] [id number] [place] [address] Aug, [facility] [address] [id number] [place] [address] Aug, [facility] [address] [id number] [place] [address] Aug, [facility] [address] [facility] [id number] [place] [address] Jul, [facility] [address] [id number] [place] [address] Jul, [facility] [address] [id number] [place] [address] Jul, [facility] [address] [id number] [place] [address] Jul, [facility] [address] [id number] [place] [address] Jul, [facility] [address] [id number] [place] [address] Jul, [facility] [address] [id number] [place] [address] Jun, [facility] [address] [id number] [place] [address] Jun, [facility] [address] [id number] [place] [address] Jun, [facility] [address] [id number] [place] [address] Jun, [facility] [address] [id number] [place] [address] Jun, [facility] [address] [id number] [place] [address] Jun, [facility] [address] [id number] [place] [address] Jun, [facility] [address] [id number] [place] [address] Jun, [facility] [address] [id number] [place] [address] Jun, [facility] [address] [id number] [place] [address] Jun, [facility] [address] [id number] [place] [address] 14 Jun, 2013 [facility] [address] [id number] [place] [address] 14 Jun, 2013 [facility] [address] [id number] [place] [address] 14 Jun, 2013 [facility] [address] [id number] [place] [address] 30 May, 2013 [facility] [address] [id number] [place] [address] 30 May, 2013 [facility] [address] [id number] [place] [address] 30 May, 2013 [facility] [address] [id number] [place] [address] 30 May, 2013 [facility] [address] [id number] [place] [address] 26 May, 2012 [facility] [address] [id number] [place] [address] 14 May, 2013 [facility] [address] [id number] [place] [address] 14 May, 2013 [facility] [address] [id number] [place] [address] 12 May, 2013 [facility] [address] [id number] [place] [address] 12 May, 2013 [facility] [address] [id number] [place] [address] 11 May, 2013 [facility] [address] [id number] [place] [address] 11 May, 2013 [facility] [address] [id number] [place] [address] 10 May, 2013 [facility] [address] [id number] [place] [address] 10 May, 2013 [facility] [address] [id number] [place] [address] 09 May, 2012 [facility] [address] [id number] [place] [address] 09 May, 2012 [facility] [address] [id number] [place] [address] 08 May, 2012 [facility] [address] [id number] [place] [address] May, 2012 [facility] [address] [id number] [place] [address] May, 2012 [facility] [address] [id number] [place] [address] May, 2012 [facility] [address] [id number] [place] [address] May, 2012 [facility] [address] [id number] [place] [address] May, 2012 [facility] [address] [id number] [place] [address] Apr, [facility] [address] [id number] [place] [address] Apr, [facility] [address] [id number] [place] [address] Apr, [facility] [address] [id number] [place] [address] Apr, [facility] [address] [id number] [place] [address] 08 Mar, 2013 [facility] [address] [id number] [place] [address] 23 Sep, 2012 [facility] [address] [id number] [place] [address] 16 Sep, 2012 [facility] [address] [id number] [place] [address] 13 Sep, 2012 [facility] [address] [id number] [place] [address] 10 Sep, 2012 [facility] [address] [id number] [place] [address] 09 Feb, 2012 [facility] [id number] [place] [address] Feb, [facility] [address] [id number] [place] [address] Jan, [facility] [address] [id number] [place] [address] Jan, [facility] [address] [id number] [place] [address] Jan, [facility] [id number] [place] [address] Dec, [facility] [address] [id number] [place] [address] Dec, [facility] [address] [id number] [place] [address] Dec, [facility] [address] [id number] [place] [address] Dec, [facility] [address] [id number] [place] [address] Dec, [facility] [address] [id number] [place] [address] Nov, [facility] [address] [id number] [place] [address] Nov, [facility] [address] [id number] [place] [address] Nov, [facility] [address] [id number] [place] [address] Nov, [facility] [address] [id number] [place] [address] Nov, [facility] [address] [id number] [place] [address] Nov, [facility] [address] [id number] [place] [address] Nov, [facility] [address] [id number] [place] [address] Nov, [facility] [address] [id number] [place] [address] Nov, [facility] [address] [id number] [place] [address] Nov, [facility] [address] [id number] [place] [address] October, [facility] [address] [id number] [place] [address] October, [facility] [address] [id number] [place] [address] Sep, [facility] [address] [id number] [place] [address] Sep, [facility] [address] [id number] [place] [address] Sep, [facility] [address] [id number] [place] [address] Sep, [facility] [address] [id number] [place] [address] Sep, [facility] [address] [id number] [place] [address] Aug, [facility] [address] [id number] [place] [address] Aug, [facility] [address] [id number] [place] [address] Jul, [facility] [address] [id number] [place] [address] Jul, [facility] [address] [id number] [place] [address] Jun, [facility] [address] [id number] [place] [address] Jun, [facility] [address] [id number] [place] [address] 05 May, 2012 [facility] [address] [id number] [place] [address] May, [facility] [address] [id number] [place] [address] May, [facility] [address] [id number] [place] [address] May, [facility] [address] [id number] [place] [address] Apr, [facility] [address] [id number] [place] [address] Apr, [facility] [address] [id number] [place] [address] Apr, [facility] [address] [id number] [place] [address] Apr, [facility] [address] [id number] [place] [address] Apr, [facility] [address] [id number] [place] [address] Apr, [facility] [address] [id number] [place] [address] Apr, [facility] [address] [id number] [place] [address] Apr, [facility] [address] [id number] [place] [address] Apr, [facility] [address] [id number] [place] [address] 15 Mar, 2012 [facility] [address] [id number] [place] [address] 15 Mar, 2012 [facility] [address] [id number] [place] [address] 05 Feb, 2012 [facility] [address] [id number] [place] [address] Jan, [facility] [address] [id number] [place] [address] Jan, [facility] [address] [id number] [place] [address] Dec, [facility] [address] [id number] [place] [address] Nov, [facility] [address] [id number] [place] [address] Nov, [facility] [address] [id number] [place] [address] October, [facility] [address] [id number] [place] [address] October, [facility] [address] [id number] [place] [address] Sep, [facility] [address] [id number] [place] [address] Sep, [facility] [address] [id number] [place] [address] May, [facility] [address] [id number] [place] [address] Apr, [facility] [address] [id number] [place] [address] Apr, [facility] [address] [id number] [place] [address] Apr, [facility] [address] [id number] [place] [address] 15 Apr, 2011 [facility] [address] [id number] [place] [address] 15 Apr, 2011 [facility] [id number] [place] [address] 10 Apr, 2011 [facility] [address] [id number] [place] [address] 10 Apr, 2011 [facility] [address] [id number] [place] [address] Apr, [facility] [address] [id number] [place] [address] Mar, [facility] [address] [id number] [place] [address] Mar, [facility] [address] [id number] [place] [address] Mar, [facility] [address] [id number] [place] [address] Mar, [facility] [address] [id number] [place] [address] Mar, [facility] [address] [id number] [place] [address] Mar, IMMUNIZATIONS No Known Immunizations SOCIAL HISTORY [...] ligation Hospitalization History Mental floor at [facility]
--- OUTSIDE RECORDS SUMMARY | 2019-12-24 19:45 | XMS REPORT ---
Author Author Trey ANDRADE Organization [facility] Address [address] [place] [address] Care Team Providers Care In Store Marketing Representative Name Role Phone SURESH ANDRADE Unavailable PROBLEMS Type Condition ICD9-CM Code KHT63-YZ Code Onset Dates Condition S tatus SNOMED Code Problem Nondependent 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 Ac tive 933583681 Problem Other chronic pain G89.29 Active 1 69149997 Problem Unspecified epilepsy without mention of intractable ep ilepsy G40.909 Active 10574912 Problem Hyperlipidemia, unspecified E78.5 Ac tive 96007930 Problem Hypertension I10 Active 4603281 3 Problem Esophageal reflux K21.9 Active 23 4861813 Problem Rheumatoid arthritis M06.9 Active 23875923 Problem Cough R05 Active 06024804 Problem Acquired hypothyroidism E03.9 Active 232726171 Problem Unspecified open-angle glaucoma, stage unspecified H40.10X0 Feb, Active 97865854 Problem Presbyopia H52.4 Active 00704212 Problem Insomnia G47.00 Active 109079475 Problem Arthralgia M25.50 Active 60290922 Problem Thyroid nodule E04.1 Active 89254 5005 Problem Anxiety disorder, unspecified F41.9 Active 616077766 Problem Chronic tension-type headache, intractable G44.221 Active 274256625 Problem Neuropathy G62.9 Active 083060079 Problem Goiter E04.9 Active 7519252 Problem Multinodular goiter E04.2 Active 214670436 Problem Carpal tunnel syndrome of left wrist G56.02 Active 028073147360935 Problem Chronic obstructive pulmonary disease, unspecified COPD ty pe J44.9 Active 05140702 Problem BMI 40.0-44.9, adult Z68.41 Active 160936542 Problem Seasonal allergic rhinitis due to pollen J30.1 Active 37480374 Problem Depression F32.9 Active 20516265 Problem Essential hypertension I10 Active 74270444 Problem Depressive disorder F32.9 Active 94307696 Problem Right-sided low back pain without sciatica M54.5 Active 296270070 Problem Reactive airway disease with out complication, unspecified asthma severity, unspecified whether persistent J45.909 Active 333240642446 Problem Urge incontinence of urine N39.41 Act chen 30962125 Problem Abnormal laboratory test R89.9 Activ e 741925573 Problem COPD with exacerbation J44.1 Active 403310387 ALLERGIES No Information ENCOUNTERS Encounter Location Date Diagnosis [place] [address] [address] Sep, [place] [address] [address] Aug, Pelvic pain R10.2 ; Other specified bact erial agents as the cause of diseases classified elsewhere B96.89 and Acute vaginitis N76.0 [place] [address] [address] Apr, Bronchitis J40 [place] [address] [address] Apr, Acute gastritis without hemorrhage, unsp ecified gastritis type K29.00 [place] [address] [address] Mar, [facility] [address] [address] Feb, [place] [address] [address] Feb, Mass of right side of neck R22.1 and Mul tinodular goiter E04.2 [facility] [address] [facility] [id number] [place] [address] Jan, Bronchitis J40 [facility] [address] [address] October, Acquired hypothyroidism E03.9 [place] [address] [address] October, Acute gastritis without hemorrhage, unsp ecified gastritis type K29.00 ; Epigastric pain R10.13 ; Essential hypertension I10 ; Screening for colon cancer Z12.11 and BMI 40.0-44.9, adult Z68.41 [place] [address] [address] October, [facility] [place] [address] [address] October, Chest pain R07.9 and Morbid obesity E66.01 [facility] [address] [address] Sep, Generalized abdominal pain R 10.84 ; Morbid obesity E66.01 ; Non-intractable vomiting with nausea, unspecified vomiting type R11.2 and Seasonal allergic rhinitis due to pollen J30.1 [facility] [address] [address] Jul, COPD with exacerbation J44.1 ; Viral upper respiratory tract infection J06.9 and Morbid obesity E66.01 [facility] [place] [address] [address] Jun, Viral upper respiratory trac t infection J06.9 [place] [address] [address] Apr, Abnormal laboratory test R89.9 [place] [address] [address] Apr, Abnormal laboratory test R89.9 [place] [address] [address] Apr, Abnormal laboratory test R89.9 [place] [address] [address] Apr, [place] [address] [address] Apr, [place] [address] [address] Apr, Nonintractable episodic headache, unspec ified headache type R51 ; Urge incontinence of urine N39.41 ; BMI 40.0-44.9, adult Z68.41 ; Myalgia M79.10 and Acute cystitis without hematuria N30.00 [facility] [address] [address] Mar, Nasal congestion R09.81 ; Low back pain M54.5 ; Reactive airway disease without complication, unspecified asthma severity, unspecified whether persistent J45.909 ; Other chronic pain G89.29 ; Acute cystitis with hematuria N30.01 and BMI 40.0-44.9, adult Z68.41 [place] [address] [address] Mar, Acute cystitis with hematuria N30.01 [facility] [address] [facility] [id number] [address] [place] [address] Mar, BMI 40.0-44.9, adult Z68.41 ; Acute cystitis with hematuria N30.01 ; Acute bilateral low back pain without sciatica M54.5 and Nausea R11.0 [place] [address] [address] Mar, Hypertension I10 ; Acquired hypothyroidi sm E03.9 ; Esophageal reflux K21.9 ; Chronic obstructive pulmonary disease, unspecified COPD type J44.9 and BMI 40.0-44.9, adult Z68.41 [place] [address] [address] Mar, Hypertension I10 [place] [address] [address] Nov, Hyperlipidemia, unspecified E78.5 [place] [address] [address] October, Chest pain, unspecified type R07.9 and A cquired hypothyroidism E03.9 [place] [address] [address] October, Chest pain, unspecified type R07.9 ; Fam demetrius history of coronary artery disease Z82.49 ; Carpal tunnel syndrome of left wrist G56.02 ; Hypertension I10 ; Esophageal reflux K21.9 ; Arthralgia M25.50 ; Acquired hypothyroidism E03.9 ; Cough R05 ; Nausea R11.0 ; Weight gain R63.5 and BMI 45.0-49.9, adult Z68.[address] [address] Jun, Acquired hypothyroidism E03.9 and Cough R05 [address] [address] May, [address] [address] Feb, Tarsal tunnel syndrome of both lower ext remities G57.53 and Neuropathy G62.[address] [address] Dec, Pleuritis R09.[address] [address] Nov, [address] [address] October, Arthralgia, unspecified joint M25.50 and Allergy, initial encounter T78.40XA [address] [address] October, [address] [address] October, Acute recurrent maxillary sinusitis J01. 01 and Arthralgia M25.[address] [address] Sep, Pharyngitis due to other organism J02.[address] [address] Aug, Acute nasopharyngitis J00 [address] [place] [address] Aug, Multinodular goiter E04.2 [place] [address] [address] Aug, Thyroid nodule E04.1 [place] [address] [address] 17 Jul, 2016 Tarsal tunnel syndrome of both lower ext remities G57.53 [place] [address] [address] Jun, Pneumonia due to infectious organism, un specified laterality, unspecified part of lung J18.9 [place] [address] [address] Jun, Bronchospasm with bronchitis, acute J20. 9 [place] [address] [address] May, Acute non-recurrent frontal sinusitis J0 1.10 [place] [address] [address] May, Flat foot [pes planus] (acquired), left foot M21.42 ; Flat foot [pes planus] (acquired), right foot M21.41 and Neuropathy G62.9 [place] [address] [address] Apr, Chronic tension-type headache, intractab le G44.221 ; Right lower quadrant abdominal pain R10.31 ; Cervicalgia M54.2 ; Acute gastritis without hemorrhage, unspecified gastritis type K29.00 and Hypertension I10 [place] [address] [address] Mar, Depression F32.9 and Anxiety disorder, u nspecified F41.9 [place] [address] [address] Feb, Depressive disorder F32.9 and Anxiety di sorder, unspecified F41.9 [place] [address] [address] Jan, Dysuria R30.0 ; Lower abdominal pain R10 .30 ; Acute bilateral low back pain without sciatica M54.5 ; Nausea and vomiting, unspecified intactability, vomiting of unspecified type R11.2 ; Pain in right foot M79.671 and Pain of left foot M79.672 [place] [address] [address] Dec, Urinary tract infection, site not specif ied N39.0 [place] [address] [address] Dec, [place] [address] [address] Nov, [place] [address] [address] Nov, Dysuria R30.0 [place] [address] [address] Nov, Dysuria R30.0 and Acute cystitis with he maturia N30.01 [place] [address] [address] October, Nausea R11.0 [place] [address] [address] October, Thyroid nodule E04.1 ; Carpal tunnel syn drome, left upper limb G56.02 ; Carpal tunnel syndrome, right upper limb G56.01 and Constipation, unspecified constipation type K59.00 [place] [address] [address] October, [place] [address] [address] October, Thyroid nodule E04.1 [place] [address] [address] October, Cold thyroid nodule E04.1 [place] [address] [address] October, [place] [address] [address] Sep, Thyroid nodule E04.1 [place] [address] [address] Sep, Thyroid nodule E04.1 [place] [address] [address] Sep, Thyroid nodule E04.1 ; Hypertension I10 ; Esophageal reflux K21.9 and Hyperlipidemia, unspecified E78.5 [place] [address] [address] Aug, Other chronic pain G89.29 ; Sinusitis J3 2.9 and Hypertension I10 [place] [address] [address] 29 Jul, [address] [address] 15 Jul, 2015 [place] [address] [address] 10 Jul, 2015 Insomnia G47.00 and Arthralgia M25.[address] [address] 10 Jul, 2015 Depressive disorder F32.9 and Anxiety di sorder, unspecified F41.[address] [address] May, Right-sided low back pain without sciati ca M54.5 and Depression F32.[address] [address] Apr, Hematuria R31.[address] [address] Mar, Other chronic pain G89.[address] [address] Mar, Other chronic pain G89.29 [facility] [address] [place] [id number] [place] [address] Feb, [facility] [address] [address] Feb, Other chronic pain 338.29 ; Dysuria 788. 1 ; UTI (urinary tract infection) 599.0 ; Insomnia 780.52 ; Hot flashes 627.2 and Hypertension 401.9 [facility] [address] [address] Feb, Dysuria 788.1 [facility] [address] [address] Feb, [facility] [address] [address] Jan, [facility] [address] [address] Jan, [facility] [address] [address] Jan, Fibromyalgia 729.1 ; Hypertension 401.9 ; Dysthymia 300.4 and Hot flashes 627.2 [facility] [address] [place] [id number] [place] [address] Dec, [facility] [address] [address] Dec, [facility] [address] [address] Dec, [facility] [address] [address] Nov, Other chronic pain 338.29 [facility] [address] [address] October, [facility] [address] [address] October, [facility] [address] [address] Sep, [facility] [address] [id number] [place] [address] 13 Sep, 2014 [facility] [address] [id number] [place] [address] Aug, [facility] [address] [id number] [place] [address] Aug, [facility] [address] [id number] [place] [address] Aug, [facility] [address] [id number] [place] [address] Aug, [facility] [address] [id number] [place] [address] Aug, [facility] [address] [id number] [place] [address] Aug, [facility] [address] [id number] [place] [address] Aug, [facility] [address] [id number] [place] [address] Aug, [facility] [address] [id number] [place] [address] Aug, [facility] [address] [id number] [place] [address] Aug, [facility] [address] [id number] [place] [address] Aug, [facility] [address] [id number] [place] [address] Aug, [facility] [address] [id number] [place] [address] Aug, [facility] [address] [id number] [place] [address] Aug, [facility] [address] [id number] [place] [address] Jul, [facility] [address] [id number] [place] [address] Jul, [facility] [address] [id number] [place] [address] Jul, [facility] [address] [id number] [place] [address] Jul, [facility] [address] [id number] [place] [address] Jul, [facility] [address] [id number] [place] [address] Jul, [facility] [address] [id number] [place] [address] Jun, [facility] [address] [id number] [place] [address] Jun, [facility] [address] [id number] [place] [address] Jun, [facility] [address] [id number] [place] [address] Jun, [facility] [address] [id number] [place] [address] May, [facility] [address] [id number] [place] [address] May, [facility] [address] [id number] [place] [address] May, [facility] [address] [id number] [place] [address] May, [facility] [address] [id number] [place] [address] May, [facility] [address] [id number] [place] [address] May, [facility] [address] [id number] [place] [address] May, [facility] [address] [id number] [place] [address] May, [facility] [address] [id number] [place] [address] May, [facility] [address] [id number] [place] [address] May, [facility] [address] [id number] [place] [address] Apr, [facility] [address] [id number] [place] [address] Apr, [facility] [address] [id number] [place] [address] Apr, [facility] [address] [id number] [place] [address] Apr, [facility] [address] [id number] [place] [address] Apr, [facility] [address] [id number] [place] [address] Apr, [facility] [address] [id number] [place] [address] Apr, [facility] [address] [id number] [place] [address] Apr, [facility] [address] [id number] [place] [address] Apr, [facility] [address] [id number] [place] [address] Mar, [facility] [address] [id number] [place] [address] Mar, [facility] [address] [id number] [place] [address] Mar, [facility] [address] [place] [id number] [place] [address] Mar, [facility] [address] [id number] [place] [address] Mar, [facility] [address] [id number] [place] [address] Mar, [facility] [address] [facility] [id number] [place] [address] 08 Mar, 2013 [facility] [address] [id number] [place] [address] 08 Mar, 2013 [facility] [address] [id number] [place] [address] 30 Sep, 2013 [facility] [address] [id number] [place] [address] 30 Sep, 2013 [facility] [address] [facility] [id number] [place] [address] 24 Sep, 2013 [facility] [address] [id number] [place] [address] 24 Sep, 2013 [facility] [address] [id number] [place] [address] 22 Sep, 2013 [facility] [address] [id number] [place] [address] 22 Sep, 2013 [facility] [address] [id number] [place] [address] 10 Sep, 2013 [facility] [address] [id number] [place] [address] 10 Sep, 2013 [facility] [address] [id number] [place] [address] 03 Sep, 2013 [facility] [address] [id number] [place] [address] 03 Sep, 2013 [facility] [address] [id number] [place] [address] 03 Sep, 2013 [facility] [address] [id number] [place] [address] 03 Sep, 2013 [facility] [address] [id number] [place] [address] 03 Sep, 2013 [facility] [address] [id number] [place] [address] 03 Sep, 2013 [facility] [address] [id number] [place] [address] Jan, 2013 [facility] [address] [id number] [place] [address] Jan, [facility] [address] [facility] [id number] [place] [address] Dec, [facility] [address] [facility] [id number] [place] [address] Dec, [facility] [address] [facility] [id number] [place] [address] Dec, [facility] [address] [facility] [id number] [place] [address] Dec, [facility] [address] [facility] [id number] [place] [id number] Dec, [facility] [address] [id number] [place] [address] Dec, [facility] [address] [id number] [place] [address] Dec, [facility] [address] [facility] [id number] [place] [address] Dec, [facility] [address] [id number] [place] [address] Dec, [facility] [address] [id number] [place] [address] Dec, 2013 [facility] [address] [id number] [place] [address] Dec, 2013 [facility] [address] [facility] [id number] [place] [address] Dec, 2013 [facility] [address] [id number] [place] [address] Dec, 2013 [facility] [address] [id number] [place] [address] Dec, 2013 [facility] [address] [id number] [place] [address] Dec, 2013 [facility] [address] [id number] [place] [address] Dec, [facility] [address] [facility] [id number] [place] [address] Dec, [facility] [address] [facility] [id number] [place] [address] Dec, [facility] [address] [id number] [place] [address] Dec, [facility] [address] [facility] [id number] [place] [address] Nov, [facility] [address] [facility] [id number] [place] [address] Nov, [facility] [address] [id number] [place] [address] Nov, [facility] [address] [id number] [place] [address] Nov, [facility] [address] [id number] [place] [address] Nov, [facility] [address] [id number] [place] [address] Nov, [facility] [address] [id number] [place] [address] Nov, [facility] [address] [id number] [place] [address] Nov, [facility] [address] [id number] [place] [address] Nov, [facility] [address] [facility] [id number] [place] [address] October, [facility] [address] [id number] [place] [address] October, [facility] [address] [id number] [place] [address] October, [facility] [address] [id number] [place] [address] October, [facility] [address] [id number] [place] [address] October, [facility] [address] [id number] [place] [address] October, [facility] [address] [id number] [place] [address] October, [facility] [address] [id number] [place] [address] October, [facility] [address] [id number] [place] [address] Sep, [facility] [address] [id number] [place] [address] Sep, [facility] [address] [id number] [place] [address] Sep, [facility] [address] [id number] [place] [address] Sep, [facility] [address] [id number] [place] [address] Sep, [facility] [address] [id number] [place] [address] Sep, [facility] [address] [id number] [place] [address] Sep, [facility] [address] [id number] [place] [address] Aug, [facility] [address] [id number] [place] [address] Aug, [facility] [address] [id number] [place] [address] Aug, [facility] [address] [id number] [place] [address] Aug, [facility] [address] [id number] [place] [address] Aug, [facility] [address] [id number] [place] [address] Aug, [facility] [address] [facility] [id number] [place] [address] Jul, [facility] [address] [id number] [place] [address] Jul, [facility] [address] [id number] [place] [address] Jul, [facility] [address] [id number] [place] [address] Jul, [facility] [address] [id number] [place] [address] Jul, [facility] [address] [id number] [place] [address] Jul, [facility] [address] [id number] [place] [address] Jun, [facility] [address] [id number] [place] [address] Jun, [facility] [address] [id number] [place] [address] Jun, [facility] [address] [id number] [place] [address] Jun, [facility] [address] [id number] [place] [address] Jun, [facility] [address] [id number] [place] [address] Jun, [facility] [address] [id number] [place] [address] Jun, [facility] [address] [id number] [place] [address] Jun, [facility] [address] [id number] [place] [address] Jun, [facility] [address] [id number] [place] [address] Jun, [facility] [address] [id number] [place] [address] 14 Jun, 2013 [facility] [address] [id number] [place] [address] 14 Jun, 2013 [facility] [address] [id number] [place] [address] 14 Jun, 2013 [facility] [address] [id number] [place] [address] 30 May, 2013 [facility] [address] [id number] [place] [address] 30 May, 2013 [facility] [address] [id number] [place] [address] 30 May, 2013 [facility] [address] [id number] [place] [address] 30 May, 2013 [facility] [address] [id number] [place] [address] 26 May, 2012 [facility] [address] [id number] [place] [address] 14 May, 2013 [facility] [address] [id number] [place] [address] 14 May, 2013 [facility] [address] [id number] [place] [address] 12 May, 2013 [facility] [address] [id number] [place] [address] 12 May, 2013 [facility] [address] [id number] [place] [address] 11 May, 2013 [facility] [address] [id number] [place] [address] 11 May, 2013 [facility] [address] [id number] [place] [address] 10 May, 2013 [facility] [address] [id number] [place] [address] 10 May, 2013 [facility] [address] [id number] [place] [address] 09 May, 2012 [facility] [address] [id number] [place] [address] 09 May, 2012 [facility] [address] [id number] [place] [address] 08 May, 2012 [facility] [address] [id number] [place] [address] May, 2012 [facility] [address] [id number] [place] [address] May, 2012 [facility] [address] [id number] [place] [address] May, 2012 [facility] [address] [id number] [place] [address] May, 2012 [facility] [address] [id number] [place] [address] May, 2012 [facility] [address] [id number] [place] [address] Apr, [facility] [address] [id number] [place] [address] Apr, [facility] [address] [id number] [place] [address] Apr, [facility] [address] [id number] [place] [address] Apr, [facility] [address] [id number] [place] [address] 08 Mar, 2013 [facility] [address] [id number] [place] [address] 23 Sep, 2012 [facility] [address] [id number] [place] [address] 16 Sep, 2012 [facility] [address] [id number] [place] [address] 13 Sep, 2012 [facility] [address] [id number] [place] [address] 10 Sep, 2012 [facility] [address] [id number] [place] [address] 09 Feb, 2012 [facility] [address] [id number] [place] [address] Feb, [facility] [address] [id number] [place] [address] Jan, [facility] [address] [id number] [place] [address] Jan, [facility] [address] [id number] [place] [address] Jan, [facility] [address] [id number] [place] [address] Dec, [facility] [address] [id number] [place] [address] Dec, [facility] [address] [id number] [place] [address] Dec, [facility] [address] [id number] [place] [address] Dec, [facility] [address] [id number] [place] [address] Dec, [facility] [address] [id number] [place] [address] Nov, [facility] [address] [id number] [place] [address] Nov, [facility] [address] [id number] [place] [address] Nov, [facility] [address] [id number] [place] [address] Nov, [facility] [address] [id number] [place] [address] Nov, [facility] [address] [id number] [place] [address] Nov, [facility] [address] [id number] [place] [address] Nov, [facility] [address] [id number] [place] [address] Nov, [facility] [address] [id number] [place] [address] Nov, [facility] [address] [id number] [place] [address] Nov, [facility] [address] [id number] [place] [address] October, [facility] [address] [id number] [place] [address] October, [facility] [address] [id number] [place] [address] Sep, [facility] [address] [id number] [place] [address] Sep, [facility] [address] [id number] [place] [address] Sep, [facility] [address] [id number] [place] [address] Sep, [facility] [address] [id number] [place] [address] Sep, [facility] [address] [id number] [place] [address] Aug, [facility] [address] [id number] [place] [address] Aug, [facility] [address] [id number] [place] [address] Jul, [facility] [address] [id number] [place] [address] Jul, [facility] [address] [id number] [place] [address] Jun, [facility] [address] [id number] [place] [address] Jun, [facility] [address] [id number] [place] [address] 05 May, 2012 [facility] [address] [id number] [place] [address] May, [facility] [address] [id number] [place] [address] May, [facility] [address] [id number] [place] [address] May, [facility] [address] [id number] [place] [address] Apr, [facility] [address] [id number] [place] [address] Apr, [facility] [address] [id number] [place] [address] Apr, [facility] [address] [id number] [place] [address] Apr, [facility] [address] [id number] [place] [address] Apr, [facility] [address] [id number] [place] [address] Apr, [facility] [address] [id number] [place] [address] Apr, [facility] [address] [id number] [place] [address] Apr, [facility] [address] [id number] [place] [address] Apr, [facility] [address] [id number] [place] [address] 15 Mar, 2012 [facility] [address] [id number] [place] [address] 15 Mar, 2012 [facility] [address] [id number] [place] [address] 05 Feb, 2012 [facility] [address] [id number] [place] [address] Jan, [facility] [address] [id number] [place] [address] Jan, [facility] [address] [id number] [place] [address] Dec, [facility] [address] [id number] [place] [address] Nov, [facility] [address] [id number] [place] [address] Nov, [facility] [address] [id number] [place] [address] October, [facility] [address] [id number] [place] [address] October, [facility] [address] [id number] [place] [address] Sep, [facility] [address] [id number] [place] [address] Sep, [facility] [address] [id number] [place] [address] May, [facility] [address] [id number] [place] [address] Apr, [facility] [address] [id number] [place] [address] Apr, [facility] [address] [id number] [place] [address] Apr, [facility] [address] [id number] [place] [address] 15 Apr, 2011 [facility] [address] [id number] [place] [address] 15 Apr, 2011 [facility] [id number] [place] [address] 10 Apr, 2011 [facility] [address] [id number] [place] [address] 10 Apr, 2011 [facility] [address] [id number] [place] [address] Apr, [facility] [address] [id number] [place] [address] Mar, [facility] [address] [id number] [place] [address] Mar, [facility] [address] [id number] [place] [address] Mar, [facility] [address] [id number] [place] [address] Mar, [facility] [address] [id number] [place] [address] Mar, [facility] [address] [id number] [place] [address] Mar, IMMUNIZATIONS No Known Immunizations SOCIAL HISTORY [...]
--- OUTSIDE RECORDS SUMMARY | 2019-12-24 19:46 | XMS REPORT ---
Author Author Trey ANDRADE Organization [facility] Address [address] [place] [address] Care Team Providers Care Treating Plant Supervisor Name Role Phone SURESH ANDRADE Unavailable PROBLEMS Type Condition ICD9-CM Code [id number] Code Onset Dates Condition S tatus SNOMED Code Problem Nondependent 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 Ac tive 553904245 Problem Other chronic pain G89.29 Active 1 26183353 Problem Unspecified epilepsy without mention of intractable ep ilepsy G40.909 Active 45647594 Problem Hyperlipidemia, unspecified E78.5 Ac tive 65407624 Problem Hypertension I10 Active 9787838 3 Problem Esophageal reflux K21.9 Active 23 6199277 Problem Rheumatoid arthritis M06.9 Active 84003446 Problem Cough R05 Active 32742980 Problem Acquired hypothyroidism E03.9 Active 472625898 Problem Unspecified open-angle glaucoma, stage unspecified H40.10X0 Feb, Active 66930606 Problem Presbyopia H52.4 Active 95687833 Problem Insomnia G47.00 Active 426194022 Problem Arthralgia M25.50 Active 97859217 Problem Thyroid nodule E04.1 Active 23535 5005 Problem Anxiety disorder, unspecified F41.9 Active 312783419 Problem Chronic tension-type headache, intractable G44.221 Active 344495390 Problem Neuropathy G62.9 Active 873771510 Problem Goiter E04.9 Active 3228751 Problem Multinodular goiter E04.2 Active 585809786 Problem Carpal tunnel syndrome of left wrist G56.02 Active 471247494228957 Problem Chronic obstructive pulmonary disease, unspecified COPD ty pe J44.9 Active 64402660 Problem BMI 40.0-44.9, adult Z68.41 Active 367687311 Problem Seasonal allergic rhinitis due to pollen J30.1 Active 50540810 Problem Depression F32.9 Active 47446361 Problem Essential hypertension I10 Active 54225324 Problem Depressive disorder F32.9 Active 77512848 Problem Right-sided low back pain without sciatica M54.5 Active 088074509 Problem Reactive airway disease with out complication, unspecified asthma severity, unspecified whether persistent J45.909 Active 702550666426 Problem Urge incontinence of urine N39.41 Act chen 15656530 Problem Abnormal laboratory test R89.9 Activ e 817901717 Problem COPD with exacerbation J44.1 Active 501927635 ALLERGIES No Information ENCOUNTERS Encounter Location Date Diagnosis [place] [address] [address] Apr, Bronchitis J40 [place] [address] [address] Apr, Acute gastritis without hemorrhage, unsp ecified gastritis type K29.00 [place] [address] [address] Mar, [place] [address] [address] Feb, [place] [address] [address] Feb, Mass of right side of neck R22.1 and Mul tinodular goiter E04.2 [facility] [place] [id number] [place] [address] Jan, Bronchitis J40 [place] [address] [address] October, Acquired hypothyroidism E03.9 [place] [address] [address] October, Acute gastritis without hemorrhage, unsp ecified gastritis type K29.00 ; Epigastric pain R10.13 ; Essential hypertension I10 ; Screening for colon cancer Z12.11 and BMI 40.0-44.9, adult Z68.41 [place] [address] [address] October, [facility] [address] [place] [address] [address] October, Chest pain R07.9 and Morbid obesity E66.01 [facility] [address] [address] Sep, Generalized abdominal pain R 10.84 ; Morbid obesity E66.01 ; Non-intractable vomiting with nausea, unspecified vomiting type R11.2 and Seasonal allergic rhinitis due to pollen J30.1 [facility] [address] [address] Jul, COPD with exacerbation J44.1 ; Viral upper respiratory tract infection J06.9 and Morbid obesity E66.01 [facility] [address] [address] Jun, Viral upper respiratory trac t infection J06.9 [place] [address] [address] Apr, Abnormal laboratory test R89.9 [place] [address] [address] Apr, Abnormal laboratory test R89.9 [place] [address] [address] Apr, Abnormal laboratory test R89.9 [place] [address] [address] Apr, [place] [address] [address] Apr, [place] [address] [address] Apr, Nonintractable episodic headache, unspec ified headache type R51 ; Urge incontinence of urine N39.41 ; BMI 40.0-44.9, adult Z68.41 ; Myalgia M79.10 and Acute cystitis without hematuria N30.00 [place] [address] [address] Mar, Nasal congestion R09.81 ; Low back pain M54.5 ; Reactive airway disease without complication, unspecified asthma severity, unspecified whether persistent J45.909 ; Other chronic pain G89.29 ; Acute cystitis with hematuria N30.01 and BMI 40.0-44.9, adult Z68.41 [facility] [address] [address] Mar, Acute cystitis with hematuria N30.01 [facility] [address] [facility] [id number] [address] [place] [address] Mar, BMI 40.0-44.9, adult Z68.41 ; Acute cystitis with hematuria N30.01 ; Acute bilateral low back pain without sciatica M54.5 and Nausea R11.0 [place] [address] [address] Mar, Hypertension I10 ; Acquired hypothyroidi sm E03.9 ; Esophageal reflux K21.9 ; Chronic obstructive pulmonary disease, unspecified COPD type J44.9 and BMI 40.0-44.9, adult Z68.41 [place] [address] [address] Mar, Hypertension I10 [place] [address] [address] Nov, Hyperlipidemia, unspecified E78.[address] [address] October, Chest pain, unspecified type R07.9 and A cquired hypothyroidism E03.9 [place] [address] [address] October, Chest pain, unspecified type R07.9 ; Fam demetrius history of coronary artery disease Z82.49 ; Carpal tunnel syndrome of left wrist G56.02 ; Hypertension I10 ; Esophageal reflux K21.9 ; Arthralgia M25.50 ; Acquired hypothyroidism E03.9 ; Cough R05 ; Nausea R11.0 ; Weight gain R63.5 and BMI 45.0-49.9, adult Z68.42 [place] [address] [address] Jun, Acquired hypothyroidism E03.9 and Cough R05 [place] [address] [address] May, [place] [address] [address] Feb, Tarsal tunnel syndrome of both lower ext remities G57.53 and Neuropathy G62.9 [place] [address] [address] Dec, Pleuritis R09.1 [place] [address] [address] Nov, [place] [address] [address] October, Arthralgia, unspecified joint M25.50 and Allergy, initial encounter T78.40XA [place] [address] [address] October, [place] [address] [address] October, Acute recurrent maxillary sinusitis J01. 01 and Arthralgia M25.50 [place] [address] [address] Sep, Pharyngitis due to other organism J02.8 [place] [address] [address] Aug, Acute nasopharyngitis J00 [place] [address] [address] Aug, Multinodular goiter E04.2 [place] [address] [address] Aug, Thyroid nodule E04.1 [place] [address] [address] Jul, Tarsal tunnel syndrome of both lower ext remities G57.53 [place] [address] [address] Jun, Pneumonia due to infectious organism, un specified laterality, unspecified part of lung J18.9 [place] [address] [address] Jun, Bronchospasm with bronchitis, acute J20. 9 [place] [address] [address] May, Acute non-recurrent frontal sinusitis J0 1.10 [place] [address] [address] May, Flat foot [pes planus] (acquired), left foot M21.42 ; Flat foot [pes planus] (acquired), right foot M21.41 and Neuropathy G62.9 [place] [address] [address] Apr, Chronic tension-type headache, intractab le G44.221 ; Right lower quadrant abdominal pain R10.31 ; Cervicalgia M54.2 ; Acute gastritis without hemorrhage, unspecified gastritis type K29.00 and Hypertension I10 [address] [address] Mar, Depression F32.9 and Anxiety disorder, u nspecified F41.9 [place] [address] [address] Feb, Depressive disorder F32.9 and Anxiety di sorder, unspecified F41.9 [place] [address] [address] Jan, Dysuria R30.0 ; Lower abdominal pain R10 .30 ; Acute bilateral low back pain without sciatica M54.5 ; Nausea and vomiting, unspecified intactability, vomiting of unspecified type R11.2 ; Pain in right foot M79.671 and Pain of left foot M79.[address] [address] Dec, Urinary tract infection, site not specif ied N39.0 [facility] [address] [address] Dec, [facility] [address] [address] Nov, [facility] [address] [address] Nov, Dysuria R30.0 [facility] [address] [address] Nov, Dysuria R30.0 and Acute cystitis with he maturia N30.01 [facility] [address] [address] October, Nausea R11.0 [facility] [address] [address] October, Thyroid nodule E04.1 ; Carpal tunnel syn drome, left upper limb G56.02 ; Carpal tunnel syndrome, right upper limb G56.01 and Constipation, unspecified constipation type K59.00 [facility] [address] [address] October, [facility] [address] [address] October, Thyroid nodule E04.1 [facility] [address] [address] October, Cold thyroid nodule E04.1 [facility] [address] [address] October, [facility] [address] [address] Sep, Thyroid nodule E04.1 [facility] [address] [address] Sep, Thyroid nodule E04.1 [facility] [address] [address] Sep, Thyroid nodule E04.1 ; Hypertension I10 ; Esophageal reflux K21.9 and Hyperlipidemia, unspecified E78.5 [place] [address] [address] Aug, Other chronic pain G89.29 ; Sinusitis J3 2.9 and Hypertension I10 [place] [address] [address] Jul, [place] [address] [address] 15 Jul, [address] [address] 10 Jul, 2015 Insomnia G47.00 and Arthralgia M25.[address] [address] 10 Jul, 2015 Depressive disorder F32.9 and Anxiety di sorder, unspecified F41.[address] [address] May, Right-sided low back pain without sciati ca M54.5 and Depression F32.[address] [address] Apr, Hematuria R31.[address] [address] Mar, Other chronic pain G89.[address] [address] Mar, Other chronic pain G89.[address] [address] Feb, [address] [address] Feb, Other chronic pain 338.29 ; Dysuria 788. 1 ; UTI (urinary tract infection) 599.0 ; Insomnia 780.52 ; Hot flashes 627.2 and Hypertension 401.9 [facility] [address] [place] [id number] [place] [address] Feb, Dysuria 788.1 [facility] [address] [place] [id number] [place] [address] Feb, [facility] [address] [address] Jan, [facility] [address] [address] Jan, [facility] [address] [address] Jan, Fibromyalgia 729.1 ; Hypertension 401.9 ; Dysthymia 300.4 and Hot flashes 627.2 [facility] [address] [address] Dec, [facility] [address] [address] Dec, [facility] [address] [place] [id number] [place] [address] Dec, [facility] [address] [address] Nov, Other chronic pain 338.29 [facility] [address] [place] [id number] [place] [address] October, [facility] [address] [address] October, [facility] [address] [place] [id number] [place] [address] Sep, [facility] [address] [address] Sep, [facility] [address] [place] [id number] [place] [address] Aug, [facility] [address] [address] Aug, [facility] [address] [id number] [place] [address] Aug, [facility] [address] [id number] [place] [address] Aug, [facility] [address] [id number] [place] [address] Aug, [facility] [address] [id number] [place] [address] Aug, [facility] [address] [id number] [place] [address] Aug, [facility] [address] [id number] [place] [address] Aug, [facility] [address] [id number] [place] [address] Aug, [facility] [address] [id number] [place] [address] Aug, [facility] [address] [id number] [place] [address] Aug, [facility] [address] [id number] [place] [address] Aug, [facility] [address] [id number] [place] [address] Aug, [facility] [address] [id number] [place] [address] Aug, [facility] [address] [id number] [place] [address] Jul, 2014 [facility] [address] [id number] [place] [address] Jul, [facility] [address] [id number] [place] [address] Jul, [facility] [address] [id number] [place] [address] Jul, [facility] [address] [id number] [place] [address] Jul, [facility] [address] [id number] [place] [address] Jul, [facility] [address] [id number] [place] [address] Jun, [facility] [address] [id number] [place] [address] Jun, [facility] [address] [id number] [place] [address] Jun, [facility] [address] [id number] [place] [address] Jun, [facility] [address] [id number] [place] [address] May, [facility] [address] [id number] [place] [address] May, [facility] [address] [id number] [place] [address] May, [facility] [address] [id number] [place] [address] May, [facility] [address] [id number] [place] [address] May, [facility] [address] [id number] [place] [address] May, [facility] [address] [id number] [place] [address] May, [facility] [address] [id number] [place] [address] May, [facility] [address] [id number] [place] [address] May, [facility] [address] [id number] [place] [address] May, [facility] [address] [id number] [place] [address] Apr, [facility] [address] [id number] [place] [address] Apr, [facility] [address] [id number] [place] [address] Apr, [facility] [address] [id number] [place] [address] Apr, [facility] [address] [id number] [place] [address] Apr, [facility] [address] [id number] [place] [address] Apr, [facility] [address] [id number] [place] [address] Apr, [facility] [address] [id number] [place] [address] Apr, [facility] [address] [id number] [place] [address] Apr, [facility] [address] [id number] [place] [address] Mar, [facility] [address] [id number] [place] [address] Mar, [facility] [address] [id number] [place] [address] Mar, [facility] [address] [id number] [place] [address] Mar, [facility] [address] [id number] [place] [address] Mar, [facility] [address] [id number] [place] [address] Mar, [facility] [address] [id number] [place] [address] Mar, [facility] [address] [id number] [place] [address] Mar, [facility] [address] [id number] [place] [address] Feb, [facility] [address] [id number] [place] [address] 30 Sep, 2013 [facility] [address] [id number] [place] [address] 24 Feb, 2013 [facility] [address] [id number] [place] [address] 24 Feb, 2013 [facility] [address] [id number] [place] [address] 22 Feb, 2013 [facility] [address] [facility] [id number] [place] [address] 22 Feb, 2013 [facility] [address] [id number] [place] [address] 10 Feb, 2013 [facility] [address] [id number] [place] [address] 10 Feb, 2013 [facility] [address] [id number] [place] [address] Sep, 2013 [facility] [address] [id number] [place] [address] Sep, 2013 [facility] [address] [id number] [place] [address] Feb, 2013 [facility] [address] [id number] [place] [address] Feb, 2013 [facility] [address] [id number] [place] [address] Feb, 2013 [facility] [address] [id number] [place] [address] Feb, 2013 [facility] [address] [id number] [place] [address] Jan, [facility] [address] [id number] [place] [address] Jan, 2013 [facility] [address] [id number] [place] [address] Dec, 2013 [facility] [address] [id number] [place] [address] Dec, 2013 [facility] [address] [id number] [facility] [place] [address] Dec, 2013 [facility] [address] [facility] [id number] [place] [address] Dec, 2013 [facility] [address] [facility] [id number] [facility] [place] [id number] Dec, 2013 [facility] [address] [facility] [id number] [place] [address] Dec, 2013 [facility] [address] [facility] [id number] [place] [address] Dec, 2013 [facility] [address] [facility] [id number] [place] [address] Dec, 2013 [facility] [address] [id number] [place] [address] Dec, 2013 [facility] [address] [id number] [place] [address] Dec, 2013 [facility] [address] [facility] [id number] [place] [address] Dec, 2013 [facility] [address] [id number] [place] [address] Dec, 2013 [facility] [address] [id number] [place] [address] Dec, 2013 [facility] [address] [id number] [place] [address] Dec, 2013 [facility] [address] [facility] [id number] [place] [address] Dec, 2013 [facility] [address] [facility] [id number] [place] [address] Dec, 2013 [facility] [address] [facility] [id number] [place] [address] Dec, 2013 [facility] [address] [id number] [place] [address] Dec, 2013 [facility] [address] [id number] [place] [address] Dec, [facility] [address] [id number] [place] [address] Nov, [facility] [address] [id number] [place] [address] Nov, [facility] [address] [id number] [place] [address] Nov, [facility] [address] [id number] [place] [address] Nov, [facility] [address] [id number] [place] [address] Nov, [facility] [address] [id number] [place] [address] Nov, [facility] [address] [id number] [place] [address] Nov, [facility] [address] [id number] [place] [address] Nov, [facility] [address] [id number] [place] [address] Nov, [facility] [address] [id number] [place] [address] October, [facility] [address] [id number] [place] [address] October, [facility] [address] [id number] [place] [address] October, [facility] [address] [id number] [place] [address] October, [facility] [address] [id number] [place] [address] October, [facility] [address] [id number] [place] [address] October, [facility] [address] [id number] [place] [address] October, [facility] [address] [id number] [place] [address] October, [facility] [address] [id number] [place] [address] Sep, [facility] [address] [id number] [place] [address] Sep, [facility] [address] [id number] [place] [address] Sep, [facility] [address] [id number] [place] [address] Sep, [facility] [address] [id number] [place] [address] Sep, [facility] [address] [id number] [place] [address] Sep, [facility] [address] [id number] [place] [address] Sep, [facility] [address] [id number] [place] [address] Aug, [facility] [address] [id number] [place] [address] Aug, [facility] [address] [id number] [place] [address] Aug, [facility] [address] [id number] [place] [address] Aug, [facility] [address] [id number] [place] [address] Aug, [facility] [address] [id number] [place] [address] Aug, [facility] [address] [id number] [place] [address] Jul, [facility] [address] [id number] [place] [address] Jul, [facility] [address] [id number] [place] [address] Jul, [facility] [address] [facility] [id number] [place] [address] Jul, [facility] [address] [id number] [place] [address] Jul, [facility] [address] [id number] [place] [address] Jul, [facility] [address] [id number] [place] [address] Jun, [facility] [address] [id number] [place] [address] Jun, [facility] [address] [id number] [place] [address] Jun, [facility] [address] [id number] [place] [address] Jun, [facility] [address] [id number] [place] [address] Jun, [facility] [address] [id number] [place] [address] Jun, [facility] [address] [id number] [place] [address] Jun, [facility] [address] [id number] [place] [address] Jun, [facility] [address] [id number] [place] [address] Jun, [facility] [address] [id number] [place] [address] Jun, [facility] [address] [id number] [place] [address] Jun, [facility] [address] [id number] [place] [address] Jun, [facility] [address] [id number] [place] [address] Jun, [facility] [address] [id number] [place] [address] 30 May, 2012 [facility] [address] [id number] [place] [address] May, [facility] [address] [id number] [place] [address] May, [facility] [address] [id number] [place] [address] May, [facility] [address] [id number] [place] [address] May, [facility] [address] [id number] [place] [address] 14 May, 2013 [facility] [address] [id number] [place] [address] 14 May, 2013 [facility] [address] [id number] [place] [address] May, [facility] [address] [id number] [place] [address] May, [facility] [address] [id number] [place] [address] May, [facility] [address] [id number] [place] [address] May, [facility] [address] [id number] [place] [address] May, [facility] [address] [id number] [place] [address] May, [facility] [address] [id number] [place] [address] 09 May, 2013 [facility] [address] [id number] [place] [address] May, [facility] [address] [id number] [place] [address] 08 May, 2013 [facility] [address] [id number] [place] [address] 07 May, 2013 [facility] [address] [id number] [place] [address] 06 May, 2012 [facility] [address] [id number] [place] [address] May, 2012 [facility] [address] [id number] [place] [address] May, 2012 [facility] [address] [id number] [place] [address] May, 2012 [facility] [address] [id number] [place] [address] Apr, [facility] [address] [id number] [place] [address] Apr, [facility] [address] [id number] [place] [address] Apr, [facility] [id number] [place] [address] Apr, [facility] [address] [id number] [place] [address] 08 Mar, 2013 [facility] [address] [id number] [place] [address] 23 Feb, 2012 [facility] [address] [id number] [place] [address] 16 Feb, 2012 [facility] [address] [id number] [place] [address] 13 Feb, 2012 [facility] [address] [id number] [place] [address] 10 Feb, 2012 [facility] [address] [id number] [place] [address] 09 Feb, 2012 [facility] [address] [id number] [place] [address] 09 Feb, 2012 [facility] [address] [id number] [place] [address] Jan, [facility] [address] [id number] [place] [address] Jan, [facility] [address] [facility] [id number] [facility] [place] [address] Jan, [facility] [address] [facility] [id number] [facility] [place] [address] Dec, [facility] [address] [id number] [facility] [place] [address] Dec, [facility] [address] [facility] [id number] [facility] [place] [address] Dec, [facility] [address] [facility] [id number] [facility] [place] [address] Dec, [facility] [address] [id number] [place] [address] Dec, [facility] [address] [id number] [place] [address] Nov, [facility] [address] [id number] [place] [address] Nov, [facility] [address] [id number] [place] [address] Nov, [facility] [address] [id number] [place] [address] Nov, [facility] [address] [id number] [place] [address] Nov, [facility] [address] [id number] [place] [address] Nov, [facility] [address] [facility] [id number] [place] [address] 07 Nov, 2012 [facility] [address] [id number] [place] [address] 06 Nov, 2012 [facility] [address] [id number] [place] [address] 05 Nov, 2012 [facility] [address] [id number] [place] [address] Nov, [facility] [address] [id number] [place] [address] October, [facility] [address] [id number] [place] [address] October, [facility] [address] [id number] [place] [address] Sep, [facility] [address] [id number] [place] [address] Sep, [facility] [address] [id number] [place] [address] Sep, [facility] [address] [id number] [place] [address] Sep, [facility] [address] [id number] [place] [address] Sep, [facility] [id number] [place] [address] Aug, [facility] [address] [id number] [place] [address] Aug, [facility] [address] [id number] [place] [address] Jul, [facility] [address] [id number] [place] [address] Jul, [facility] [address] [id number] [place] [address] Jun, [facility] [address] [id number] [place] [address] Jun, [facility] [address] [id number] [place] [address] May, [facility] [id number] [place] [address] May, [facility] [address] [id number] [place] [address] May, [facility] [address] [id number] [place] [address] May, [facility] [address] [id number] [place] [address] Apr, [facility] [address] [id number] [place] [address] Apr, [facility] [address] [id number] [place] [address] Apr, [facility] [address] [id number] [place] [address] Apr, [facility] [address] [id number] [place] [address] Apr, [facility] [address] [id number] [place] [address] Apr, [facility] [address] [id number] [place] [address] Apr, [facility] [address] [id number] [place] [address] Apr, [facility] [address] [id number] [place] [address] Apr, [facility] [address] [id number] [place] [address] Mar, [facility] [address] [id number] [place] [address] Mar, [facility] [address] [id number] [place] [address] Feb, [facility] [address] [id number] [place] [address] Jan, [facility] [address] [id number] [place] [address] Jan, [facility] [address] [id number] [place] [address] Dec, [facility] [address] [id number] [place] [address] Nov, [facility] [address] [id number] [place] [address] Nov, [facility] [address] [id number] [place] [address] October, [facility] [address] [id number] [place] [address] October, [facility] [address] [id number] [place] [address] Sep, [facility] [address] [id number] [place] [address] Sep, [facility] [address] [id number] [place] [address] May, [facility] [address] [id number] [place] [address] Apr, [facility] [address] [id number] [place] [address] Apr, [facility] [address] [id number] [place] [address] Apr, [facility] [address] [id number] [place] [address] 15 Apr, 2011 [facility] [address] [id number] [place] [address] 15 Apr, 2011 [facility] [address] [id number] [place] [address] Apr, [facility] [address] [id number] [place] [address] Apr, [facility] [address] [id number] [place] [address] Apr, [facility] [id number] [place] [address] Mar, [facility] [address] [id number] [place] [address] Mar, [facility] [address] [id number] [place] [address] Mar, [facility] [address] [facility] [id number] [place] [address] Mar, [facility] [address] [id number] [place] [address] Mar, [facility] [address] [id number] [place] [address] Mar, IMMUNIZATIONS No Known Immunizations SOCIAL HISTORY [...]
--- OUTSIDE RECORDS SUMMARY | 2019-12-24 19:46 | XMS REPORT ---
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 Name Role Phone SURESH ANDRADE Unavailable PROBLEMS Type Condition ICD9-CM Code GNA03-HK Code Onset Dates Condition S tatus SNOMED Code Problem Nondependent 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 Ac tive 854738519 Problem Other chronic pain G89.29 Active 1 66629327 Problem Unspecified epilepsy without mention of intractable ep ilepsy G40.909 Active 41998160 Problem Hyperlipidemia, unspecified E78.5 Ac tive 02041036 Problem Hypertension I10 Active 4656889 3 Problem Esophageal reflux K21.9 Active 23 8114581 Problem Rheumatoid arthritis M06.9 Active 96044862 Problem Cough R05 Active 43800040 Problem Acquired hypothyroidism E03.9 Active 403061149 Problem Unspecified open-angle glaucoma, stage unspecified H40.10X0 Feb, Active 58591817 Problem Presbyopia H52.4 Active 30489845 Problem Insomnia G47.00 Active 663249982 Problem Arthralgia M25.50 Active 65674117 Problem Thyroid nodule E04.1 Active 38460 5005 Problem Anxiety disorder, unspecified F41.9 Active 434053222 Problem Chronic tension-type headache, intractable G44.221 Active 566188677 Problem Neuropathy G62.9 Active 139795821 Problem Goiter E04.9 Active 1631284 Problem Multinodular goiter E04.2 Active 434751547 Problem Carpal tunnel syndrome of left wrist G56.02 Active 329300679586035 Problem Chronic obstructive pulmonary disease, unspecified COPD ty pe J44.9 Active 21499844 Problem BMI 40.0-44.9, adult Z68.41 Active 689435629 Problem Seasonal allergic rhinitis due to pollen J30.1 Active 97889342 Problem Depression F32.9 Active 17746487 Problem Essential hypertension I10 Active 36472280 Problem Depressive disorder F32.9 Active 46955249 Problem Right-sided low back pain without sciatica M54.5 Active 241429060 Problem Reactive airway disease with out complication, unspecified asthma severity, unspecified whether persistent J45.909 Active 957320321040 Problem Urge incontinence of urine N39.41 Act chen 35154154 Problem Abnormal laboratory test R89.9 Activ e 060022727 Problem COPD with exacerbation J44.1 Active 318588524 ALLERGIES No Information ENCOUNTERS Encounter Location Date Diagnosis [place] [address] [address] Apr, Bronchitis J40 [place] [address] [address] Apr, Acute gastritis without hemorrhage, unsp ecified gastritis type K29.00 [place] [address] [address] Mar, [place] [address] [address] Feb, [place] [address] [address] Feb, Mass of right side of neck R22.1 and Mul tinodular goiter E04.2 [facility] [place] [id number] [place] [address] Jan, Bronchitis J40 [place] [address] [address] October, Acquired hypothyroidism E03.9 [place] [address] [address] October, Acute gastritis without hemorrhage, unsp ecified gastritis type K29.00 ; Epigastric pain R10.13 ; Essential hypertension I10 ; Screening for colon cancer Z12.11 and BMI 40.0-44.9, adult Z68.41 [place] [address] [address] October, [facility] [address] [place] [address] [address] October, Chest pain R07.9 and Morbid obesity E66.01 [facility] [address] [address] Sep, Generalized abdominal pain R 10.84 ; Morbid obesity E66.01 ; Non-intractable vomiting with nausea, unspecified vomiting type R11.2 and Seasonal allergic rhinitis due to pollen J30.1 [facility] [address] [address] Jul, COPD with exacerbation J44.1 ; Viral upper respiratory tract infection J06.9 and Morbid obesity E66.01 [facility] [address] [address] Jun, Viral upper respiratory trac t infection J06.9 [place] [address] [address] Apr, Abnormal laboratory test R89.9 [place] [address] [address] Apr, Abnormal laboratory test R89.9 [place] [address] [address] Apr, Abnormal laboratory test R89.9 [place] [address] [address] Apr, [place] [address] [address] Apr, [place] [address] [address] Apr, Nonintractable episodic headache, unspec ified headache type R51 ; Urge incontinence of urine N39.41 ; BMI 40.0-44.9, adult Z68.41 ; Myalgia M79.10 and Acute cystitis without hematuria N30.00 [place] [address] [address] Mar, Nasal congestion R09.81 ; Low back pain M54.5 ; Reactive airway disease without complication, unspecified asthma severity, unspecified whether persistent J45.909 ; Other chronic pain G89.29 ; Acute cystitis with hematuria N30.01 and BMI 40.0-44.9, adult Z68.41 [facility] [address] [address] Mar, Acute cystitis with hematuria N30.01 [facility] [address] [facility] [id number] [place] [address] Mar, BMI 40.0-44.9, adult Z68.41 ; Acute cystitis with hematuria N30.01 ; Acute bilateral low back pain without sciatica M54.5 and Nausea R11.0 [place] [address] [address] Mar, Hypertension I10 ; Acquired hypothyroidi sm E03.9 ; Esophageal reflux K21.9 ; Chronic obstructive pulmonary disease, unspecified COPD type J44.9 and BMI 40.0-44.9, adult Z68.41 [place] [address] [address] Mar, Hypertension I10 [place] [address] [address] Nov, Hyperlipidemia, unspecified E78.[address] [address] October, Chest pain, unspecified type R07.9 and A cquired hypothyroidism E03.9 [place] [address] [address] October, Chest pain, unspecified type R07.9 ; Fam demetrius history of coronary artery disease Z82.49 ; Carpal tunnel syndrome of left wrist G56.02 ; Hypertension I10 ; Esophageal reflux K21.9 ; Arthralgia M25.50 ; Acquired hypothyroidism E03.9 ; Cough R05 ; Nausea R11.0 ; Weight gain R63.5 and BMI 45.0-49.9, adult Z68.42 [place] [address] [address] Jun, Acquired hypothyroidism E03.9 and Cough R05 [place] [address] [address] May, [place] [address] [address] Feb, Tarsal tunnel syndrome of both lower ext remities G57.53 and Neuropathy G62.9 [place] [address] [address] Dec, Pleuritis R09.1 [place] [address] [address] Nov, [place] [address] [address] October, Arthralgia, unspecified joint M25.50 and Allergy, initial encounter T78.40XA [place] [address] [address] October, [place] [address] [address] October, Acute recurrent maxillary sinusitis J01. 01 and Arthralgia M25.50 [place] [address] [address] Sep, Pharyngitis due to other organism J02.8 [place] [address] [address] Aug, Acute nasopharyngitis J00 [place] [address] [address] Aug, Multinodular goiter E04.2 [place] [address] [address] Aug, Thyroid nodule E04.1 [place] [address] [address] Jul, Tarsal tunnel syndrome of both lower ext remities G57.53 [place] [address] [address] Jun, Pneumonia due to infectious organism, un specified laterality, unspecified part of lung J18.9 [place] [address] [address] Jun, Bronchospasm with bronchitis, acute J20. 9 [place] [address] [address] May, Acute non-recurrent frontal sinusitis J0 1.10 [place] [address] [address] May, Flat foot [pes planus] (acquired), left foot M21.42 ; Flat foot [pes planus] (acquired), right foot M21.41 and Neuropathy G62.9 [place] [address] [address] Apr, Chronic tension-type headache, intractab le G44.221 ; Right lower quadrant abdominal pain R10.31 ; Cervicalgia M54.2 ; Acute gastritis without hemorrhage, unspecified gastritis type K29.00 and Hypertension I10 [address] [address] Mar, Depression F32.9 and Anxiety disorder, u nspecified F41.9 [place] [address] [address] Feb, Depressive disorder F32.9 and Anxiety di sorder, unspecified F41.9 [place] [address] [address] Jan, Dysuria R30.0 ; Lower abdominal pain R10 .30 ; Acute bilateral low back pain without sciatica M54.5 ; Nausea and vomiting, unspecified intactability, vomiting of unspecified type R11.2 ; Pain in right foot M79.671 and Pain of left foot M79.[address] [address] Dec, Urinary tract infection, site not specif ied N39.0 [facility] [address] [address] Dec, [facility] [address] [address] Nov, [facility] [address] [address] Nov, Dysuria R30.0 [facility] [address] [address] Nov, Dysuria R30.0 and Acute cystitis with he maturia N30.01 [facility] [address] [address] October, Nausea R11.0 [facility] [address] [address] October, Thyroid nodule E04.1 ; Carpal tunnel syn drome, left upper limb G56.02 ; Carpal tunnel syndrome, right upper limb G56.01 and Constipation, unspecified constipation type K59.00 [facility] [address] [address] October, [facility] [address] [address] October, Thyroid nodule E04.1 [facility] [address] [address] October, Cold thyroid nodule E04.1 [facility] [address] [address] October, [facility] [address] [address] Sep, Thyroid nodule E04.1 [facility] [address] [address] Sep, Thyroid nodule E04.1 [facility] [address] [address] Sep, Thyroid nodule E04.1 ; Hypertension I10 ; Esophageal reflux K21.9 and Hyperlipidemia, unspecified E78.5 [place] [address] [address] Aug, Other chronic pain G89.29 ; Sinusitis J3 2.9 and Hypertension I10 [place] [address] [address] Jul, [place] [address] [address] 15 Jul, [address] [address] 10 Jul, 2015 Insomnia G47.00 and Arthralgia M25.[address] [address] 10 Jul, 2015 Depressive disorder F32.9 and Anxiety di sorder, unspecified F41.[address] [address] May, Right-sided low back pain without sciati ca M54.5 and Depression F32.[address] [address] Apr, Hematuria R31.[address] [address] Mar, Other chronic pain G89.[address] [address] Mar, Other chronic pain G89.[address] [address] Feb, [address] [address] Feb, Other chronic pain 338.29 ; Dysuria 788. 1 ; UTI (urinary tract infection) 599.0 ; Insomnia 780.52 ; Hot flashes 627.2 and Hypertension 401.9 [facility] [address] [place] [id number] [place] [address] Feb, Dysuria 788.1 [facility] [address] [place] [id number] [place] [address] Feb, [facility] [address] [address] Jan, [facility] [address] [address] Jan, [facility] [address] [address] Jan, Fibromyalgia 729.1 ; Hypertension 401.9 ; Dysthymia 300.4 and Hot flashes 627.2 [facility] [address] [address] Dec, [facility] [address] [address] Dec, [facility] [address] [place] [id number] [place] [address] Dec, [facility] [address] [address] Nov, Other chronic pain 338.29 [facility] [address] [place] [id number] [place] [address] October, [facility] [address] [address] October, [facility] [address] [place] [id number] [place] [address] Sep, [facility] [address] [address] Sep, [facility] [address] [place] [id number] [place] [address] Aug, [facility] [address] [address] Aug, [facility] [address] [id number] [place] [address] Aug, [facility] [address] [id number] [place] [address] Aug, [facility] [address] [id number] [place] [address] Aug, [facility] [address] [id number] [place] [address] Aug, [facility] [address] [id number] [place] [address] Aug, [facility] [address] [id number] [place] [address] Aug, [facility] [address] [id number] [place] [address] Aug, [facility] [address] [id number] [place] [address] Aug, [facility] [address] [id number] [place] [address] Aug, [facility] [address] [id number] [place] [address] Aug, [facility] [address] [id number] [place] [address] Aug, [facility] [address] [id number] [place] [address] Aug, [facility] [address] [id number] [place] [address] Jul, 2014 [facility] [address] [id number] [place] [address] Jul, [facility] [address] [id number] [place] [address] Jul, [facility] [address] [id number] [place] [address] Jul, [facility] [address] [id number] [place] [address] Jul, [facility] [address] [id number] [place] [address] Jul, [facility] [address] [id number] [place] [address] Jun, [facility] [address] [id number] [place] [address] Jun, [facility] [address] [id number] [place] [address] Jun, [facility] [address] [id number] [place] [address] Jun, [facility] [address] [id number] [place] [address] May, [facility] [address] [id number] [place] [address] May, [facility] [address] [id number] [place] [address] May, [facility] [address] [id number] [place] [address] May, [facility] [address] [id number] [place] [address] May, [facility] [address] [id number] [place] [address] May, [facility] [address] [id number] [place] [address] May, [facility] [address] [id number] [place] [address] May, [facility] [address] [id number] [place] [address] May, [facility] [address] [id number] [place] [address] May, [facility] [address] [id number] [place] [address] Apr, [facility] [address] [id number] [place] [address] Apr, [facility] [address] [id number] [place] [address] Apr, [facility] [address] [id number] [place] [address] Apr, [facility] [address] [id number] [place] [address] Apr, [facility] [address] [id number] [place] [address] Apr, [facility] [address] [id number] [place] [address] Apr, [facility] [address] [id number] [place] [address] Apr, [facility] [address] [id number] [place] [address] Apr, [facility] [address] [id number] [place] [address] Mar, [facility] [address] [id number] [place] [address] Mar, [facility] [address] [id number] [place] [address] Mar, [facility] [address] [id number] [place] [address] Mar, [facility] [address] [id number] [place] [address] Mar, [facility] [address] [id number] [place] [address] Mar, [facility] [address] [id number] [place] [address] Mar, [facility] [address] [id number] [place] [address] Mar, [facility] [address] [id number] [place] [address] Feb, [facility] [address] [id number] [place] [address] 30 Sep, 2013 [facility] [address] [id number] [place] [address] 24 Feb, 2013 [facility] [address] [id number] [place] [address] 24 Feb, 2013 [facility] [address] [id number] [place] [address] 22 Feb, 2013 [facility] [address] [facility] [id number] [place] [address] 22 Feb, 2013 [facility] [address] [id number] [place] [address] 10 Feb, 2013 [facility] [address] [id number] [place] [address] 10 Feb, 2013 [facility] [address] [id number] [place] [address] Sep, 2013 [facility] [address] [id number] [place] [address] Sep, 2013 [facility] [address] [id number] [place] [address] Feb, 2013 [facility] [address] [id number] [place] [address] Feb, 2013 [facility] [address] [id number] [place] [address] Feb, 2013 [facility] [address] [id number] [place] [address] Feb, 2013 [facility] [address] [id number] [place] [address] Jan, [facility] [address] [id number] [place] [address] Jan, 2013 [facility] [address] [id number] [place] [address] Dec, 2013 [facility] [address] [id number] [place] [address] Dec, 2013 [facility] [address] [id number] [place] [address] Dec, 2013 [facility] [address] [facility] [id number] [place] [address] Dec, 2013 [facility] [address] [facility] [id number] [facility] [place] [id number] Dec, 2013 [facility] [address] [facility] [id number] [place] [address] Dec, 2013 [facility] [address] [facility] [id number] [place] [address] Dec, 2013 [facility] [address] [facility] [id number] [place] [address] Dec, 2013 [facility] [address] [id number] [place] [address] Dec, 2013 [facility] [address] [id number] [place] [address] Dec, 2013 [facility] [address] [facility] [id number] [place] [address] Dec, 2013 [facility] [address] [id number] [place] [address] Dec, 2013 [facility] [address] [id number] [place] [address] Dec, 2013 [facility] [address] [id number] [place] [address] Dec, 2013 [facility] [address] [facility] [id number] [place] [address] Dec, 2013 [facility] [address] [facility] [id number] [place] [address] Dec, 2013 [facility] [address] [facility] [id number] [place] [address] Dec, 2013 [facility] [address] [id number] [place] [address] Dec, 2013 [facility] [address] [id number] [place] [address] Dec, [facility] [address] [id number] [place] [address] Nov, [facility] [address] [id number] [place] [address] Nov, [facility] [address] [id number] [place] [address] Nov, [facility] [address] [id number] [place] [address] Nov, [facility] [address] [id number] [place] [address] Nov, [facility] [address] [id number] [place] [address] Nov, [facility] [address] [id number] [place] [address] Nov, [facility] [address] [id number] [place] [address] Nov, [facility] [address] [id number] [place] [address] Nov, [facility] [address] [id number] [place] [address] October, [facility] [address] [id number] [place] [address] October, [facility] [address] [id number] [place] [address] October, [facility] [address] [id number] [place] [address] October, [facility] [address] [id number] [place] [address] October, [facility] [address] [id number] [place] [address] October, [facility] [address] [id number] [place] [address] October, [facility] [address] [id number] [place] [address] October, [facility] [address] [id number] [place] [address] Sep, [facility] [address] [id number] [place] [address] Sep, [facility] [address] [id number] [place] [address] Sep, [facility] [address] [id number] [place] [address] Sep, [facility] [address] [id number] [place] [address] Sep, [facility] [address] [id number] [place] [address] Sep, [facility] [address] [id number] [place] [address] Sep, [facility] [address] [id number] [place] [address] Aug, [facility] [address] [id number] [place] [address] Aug, [facility] [address] [id number] [place] [address] Aug, [facility] [address] [id number] [place] [address] Aug, [facility] [address] [id number] [place] [address] Aug, [facility] [address] [id number] [place] [address] Aug, [facility] [address] [id number] [place] [address] Jul, [facility] [address] [id number] [place] [address] Jul, [facility] [address] [id number] [place] [address] Jul, [facility] [address] [facility] [id number] [place] [address] Jul, [facility] [address] [id number] [place] [address] Jul, [facility] [address] [id number] [place] [address] Jul, [facility] [address] [id number] [place] [address] Jun, [facility] [address] [id number] [place] [address] Jun, [facility] [address] [id number] [place] [address] Jun, [facility] [address] [id number] [place] [address] Jun, [facility] [address] [id number] [place] [address] Jun, [facility] [address] [id number] [place] [address] Jun, [facility] [address] [id number] [place] [address] Jun, [facility] [address] [id number] [place] [address] Jun, [facility] [address] [id number] [place] [address] Jun, [facility] [address] [id number] [place] [address] Jun, [facility] [address] [id number] [place] [address] Jun, [facility] [address] [id number] [place] [address] Jun, [facility] [address] [id number] [place] [address] Jun, [facility] [address] [id number] [place] [address] 30 May, 2012 [facility] [address] [id number] [place] [address] May, [facility] [address] [id number] [place] [address] May, [facility] [address] [id number] [place] [address] May, [facility] [address] [id number] [place] [address] May, [facility] [address] [id number] [place] [address] 14 May, 2013 [facility] [address] [id number] [place] [address] 14 May, 2013 [facility] [address] [id number] [place] [address] May, [facility] [address] [id number] [place] [address] May, [facility] [address] [id number] [place] [address] May, [facility] [address] [id number] [place] [address] May, [facility] [address] [id number] [place] [address] May, [facility] [address] [id number] [place] [address] May, [facility] [address] [id number] [place] [address] 09 May, 2013 [facility] [address] [id number] [place] [address] May, [facility] [address] [id number] [place] [address] 08 May, 2013 [facility] [address] [id number] [place] [address] 07 May, 2013 [facility] [address] [id number] [place] [address] 06 May, 2012 [facility] [address] [facility] [id number] [place] [address] May, 2012 [facility] [address] [id number] [place] [address] May, 2012 [facility] [address] [id number] [place] [address] May, 2012 [facility] [address] [id number] [place] [address] Apr, [facility] [address] [id number] [place] [address] Apr, [facility] [address] [id number] [place] [address] Apr, [facility] [id number] [place] [address] Apr, [facility] [address] [id number] [place] [address] 08 Mar, 2013 [facility] [address] [id number] [place] [address] 23 Feb, 2012 [facility] [address] [id number] [place] [address] 16 Feb, 2012 [facility] [address] [id number] [place] [address] 13 Feb, 2012 [facility] [address] [id number] [place] [address] 10 Feb, 2012 [facility] [address] [id number] [place] [address] 09 Feb, 2012 [facility] [address] [id number] [place] [address] 09 Feb, 2012 [facility] [address] [id number] [place] [address] Jan, [facility] [address] [id number] [place] [address] Jan, [facility] [address] [facility] [id number] [place] [address] Jan, [facility] [address] [facility] [id number] [place] [address] Dec, [facility] [address] [id number] [place] [address] Dec, [facility] [address] [facility] [id number] [place] [address] Dec, [facility] [address] [facility] [id number] [place] [address] Dec, [facility] [address] [id number] [place] [address] Dec, [facility] [address] [id number] [place] [address] Nov, [facility] [address] [id number] [place] [address] Nov, [facility] [address] [id number] [place] [address] Nov, [facility] [address] [id number] [place] [address] Nov, [facility] [address] [id number] [place] [address] Nov, [facility] [address] [id number] [place] [address] Nov, [facility] [address] [facility] [id number] [place] [address] 07 Nov, 2012 [facility] [address] [id number] [place] [address] 06 Nov, 2012 [facility] [address] [id number] [place] [address] 05 Nov, 2012 [facility] [address] [id number] [place] [address] Nov, [facility] [address] [id number] [place] [address] October, [facility] [address] [id number] [place] [address] October, [facility] [address] [id number] [place] [address] Sep, [facility] [address] [id number] [place] [address] Sep, [facility] [address] [id number] [place] [address] Sep, [facility] [address] [id number] [place] [address] Sep, [facility] [address] [id number] [place] [address] Sep, [facility] [id number] [place] [address] Aug, [facility] [address] [id number] [place] [address] Aug, [facility] [address] [id number] [place] [address] Jul, [facility] [address] [id number] [place] [address] Jul, [facility] [address] [id number] [place] [address] Jun, [facility] [address] [id number] [place] [address] Jun, [facility] [address] [id number] [place] [address] May, [facility] [id number] [place] [address] May, [facility] [address] [id number] [place] [address] May, [facility] [address] [id number] [place] [address] May, [facility] [address] [id number] [place] [address] Apr, [facility] [address] [id number] [place] [address] Apr, [facility] [address] [id number] [place] [address] Apr, [facility] [address] [id number] [place] [address] Apr, [facility] [address] [id number] [place] [address] Apr, [facility] [address] [id number] [place] [address] Apr, [facility] [address] [id number] [place] [address] Apr, [facility] [address] [id number] [place] [address] Apr, [facility] [address] [id number] [place] [address] Apr, [facility] [address] [id number] [place] [address] Mar, [facility] [address] [id number] [place] [address] Mar, [facility] [address] [id number] [place] [address] Feb, [facility] [address] [id number] [place] [address] Jan, [facility] [address] [id number] [place] [address] Jan, [facility] [address] [id number] [place] [address] Dec, [facility] [address] [id number] [place] [address] Nov, [facility] [address] [id number] [place] [address] Nov, [facility] [address] [id number] [place] [address] October, [facility] [address] [id number] [place] [address] October, [facility] [address] [id number] [place] [address] Sep, [facility] [address] [id number] [place] [address] Sep, [facility] [address] [id number] [place] [address] May, [facility] [address] [id number] [place] [address] Apr, [facility] [address] [id number] [place] [address] Apr, [facility] [address] [id number] [place] [address] Apr, [facility] [address] [id number] [place] [address] 15 Apr, 2011 [facility] [address] [id number] [place] [address] 15 Apr, 2011 [facility] [address] [id number] [place] [address] Apr, [facility] [address] [id number] [place] [address] Apr, [facility] [address] [id number] [place] [address] Apr, [facility] [id number] [place] [address] Mar, [facility] [address] [id number] [place] [address] Mar, [facility] [address] [id number] [place] [address] Mar, [facility] [address] [facility] [id number] [place] [address] Mar[facility] [address] [id number] [place] [address] Mar, [facility] [address] [id number] [place] [address] Mar, IMMUNIZATIONS No Known Immunizations SOCIAL HISTORY [...] Stomach surgeryx3 Hospitalization History Mental floor at [facility]
--- OUTSIDE RECORDS SUMMARY | 2019-12-24 19:46 | XMS REPORT ---
Author Author Deann Trey Doctor Organization [facility] Address Unknown Phone Unavailable Care Team Providers Care Telephone Collector Name Role Phone Migration, Doctor Unavailable Unavailable PROBLEMS Type Condition ICD9-CM Code BLD32-WB Code Onset Dates Condition S tatus SNOMED Code Problem Nondependent 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 Ac tive 285502505 Problem Other chronic pain G89.29 Active 1 18691577 Problem Unspecified epilepsy without mention of intractable ep ilepsy G40.909 Active 37771898 Problem Hyperlipidemia, unspecified E78.5 Ac tive 99260429 Problem Hypertension I10 Active 2790251 3 Problem Esophageal reflux K21.9 Active 23 1763158 Problem Rheumatoid arthritis M06.9 Active 77948031 Problem Cough R05 Active 45532574 Problem Acquired hypothyroidism E03.9 Active 879884519 Problem Unspecified open-angle glaucoma, stage unspecified H40.10X0 Feb, Active 53436912 Problem Presbyopia H52.4 Active 88542140 Problem Insomnia G47.00 Active 192582507 Problem Arthralgia M25.50 Active 13474973 Problem Thyroid nodule E04.1 Active 14887 5005 Problem Anxiety disorder, unspecified F41.9 Active 456061779 Problem Chronic tension-type headache, intractable G44.221 Active 709758345 Problem Neuropathy G62.9 Active 768089947 Problem Goiter E04.9 Active 1759030 Problem Multinodular goiter E04.2 Active 013134354 Problem Carpal tunnel syndrome of left wrist G56.02 Active 831598865800828 Problem Chronic obstructive pulmonary disease, unspecified COPD ty pe J44.9 Active 27980969 Problem BMI 40.0-44.9, adult Z68.41 Active 677508227 Problem Seasonal allergic rhinitis due to pollen J30.1 Active 20988627 Problem Depression F32.9 Active 46362895 Problem Essential hypertension I10 Active 20673087 Problem Depressive disorder F32.9 Active 29319584 Problem Right-sided low back pain without sciatica M54.5 Active 263587236 Problem Reactive airway disease with out complication, unspecified asthma severity, unspecified whether persistent J45.909 Active 268855463387 Problem Urge incontinence of urine N39.41 Act chen 25370432 Problem Abnormal laboratory test R89.9 Activ e 167394912 Problem COPD with exacerbation J44.1 Active 679373140 ALLERGIES No Information ENCOUNTERS Encounter Location Date Diagnosis [place] [address] [address] Apr, Bronchitis J40 [place] [address] [address] 04 Apr, 2019 Acute gastritis without hemorrhage, unsp ecified gastritis type K29.00 [place] [address] [address] Mar, [place] [address] [address] Feb, [place] [address] [address] Feb, Mass of right side of neck R22.1 and Mul tinodular goiter E04.2 [facility] [place] [address] [address] Jan, Bronchitis J40 [place] [address] [address] October, Acquired hypothyroidism E03.9 [place] [address] [address] October, Acute gastritis without hemorrhage, unsp ecified gastritis type K29.00 ; Epigastric pain R10.13 ; Essential hypertension I10 ; Screening for colon cancer Z12.11 and BMI 40.0-44.9, adult Z68.41 [place] [address] [address] October, [facility] [address] [place] [id number] [address] [place] [address] October, Chest pain R07.9 and Morbid obesity E66.01 [facility] [address] [place] [id number] [address] [place] [address] Sep, Generalized abdominal pain R 10.84 ; Morbid obesity E66.01 ; Non-intractable vomiting with nausea, unspecified vomiting type R11.2 and Seasonal allergic rhinitis due to pollen J30.1 [facility] [address] [place] [id number] [place] [address] 28 Jul, 2018 COPD with exacerbation J44.1 ; Viral upper respiratory tract infection J06.9 and Morbid obesity E66.01 [facility] [address] [address] Jun, Viral upper respiratory trac t infection J06.9 [place] [address] [address] Apr, Abnormal laboratory test R89.9 [place] [address] [address] Apr, Abnormal laboratory test R89.9 [place] [address] [address] Apr, Abnormal laboratory test R89.9 [place] [address] [address] Apr, [place] [address] [address] Apr, [place] [address] [address] Apr, Nonintractable episodic headache, unspec ified headache type R51 ; Urge incontinence of urine N39.41 ; BMI 40.0-44.9, adult Z68.41 ; Myalgia M79.10 and Acute cystitis without hematuria N30.00 [place] [address] [address] Mar, Nasal congestion R09.81 ; Low back pain M54.5 ; Reactive airway disease without complication, unspecified asthma severity, unspecified whether persistent J45.909 ; Other chronic pain G89.29 ; Acute cystitis with hematuria N30.01 and BMI 40.0-44.9, adult Z68.41 [place] [address] [place] [id number] Mar, Acute cystitis with hematuria N30.01 [facility] [address] [facility] [id number] [address] [place] [address] Mar, BMI 40.0-44.9, adult Z68.41 ; Acute cystitis with hematuria N30.01 ; Acute bilateral low back pain without sciatica M54.5 and Nausea R11.0 [place] [address] [address] Mar, Hypertension I10 ; Acquired hypothyroidi sm E03.9 ; Esophageal reflux K21.9 ; Chronic obstructive pulmonary disease, unspecified COPD type J44.9 and BMI 40.0-44.9, adult Z68.[address] [address] Mar, Hypertension I10 [place] [address] [address] Nov, Hyperlipidemia, unspecified E78.[address] [address] October, Chest pain, unspecified type R07.9 and A cquired hypothyroidism E03.[address] [address] October, Chest pain, unspecified type R07.9 ; Fam demetrius history of coronary artery disease Z82.49 ; Carpal tunnel syndrome of left wrist G56.02 ; Hypertension I10 ; Esophageal reflux K21.9 ; Arthralgia M25.50 ; Acquired hypothyroidism E03.9 ; Cough R05 ; Nausea R11.0 ; Weight gain R63.5 and BMI 45.0-49.9, adult Z68.[address] [address] Jun, Acquired hypothyroidism E03.9 and Cough R05 [place] [address] [address] May, [place] [address] [address] Feb, Tarsal tunnel syndrome of both lower ext remities G57.53 and Neuropathy G62.9 [place] [address] [address] Dec, Pleuritis R09.1 [place] [address] [address] Nov, [place] [address] [address] October, Arthralgia, unspecified joint M25.50 and Allergy, initial encounter T78.40XA [place] [address] [address] October, [place] [address] [address] October, Acute recurrent maxillary sinusitis J01. 01 and Arthralgia M25.50 [place] [address] [address] Sep, Pharyngitis due to other organism J02.8 [place] [address] [address] Aug, Acute nasopharyngitis J00 [place] [address] [address] Aug, Multinodular goiter E04.2 [place] [address] [address] Aug, Thyroid nodule E04.1 [place] [address] [address] 17 Jul, 2016 Tarsal tunnel syndrome of both lower ext remities G57.53 [place] [address] [address] Jun, Pneumonia due to infectious organism, un specified laterality, unspecified part of lung J18.9 [place] [address] [place] [id number] Jun, Bronchospasm with bronchitis, acute J20. 9 [place] [address] [address] May, Acute non-recurrent frontal sinusitis J0 1.10 [place] [address] [address] May, Flat foot [pes planus] (acquired), left foot M21.42 ; Flat foot [pes planus] (acquired), right foot M21.41 and Neuropathy G62.9 [place] [address] [address] Apr, Chronic tension-type headache, intractab le G44.221 ; Right lower quadrant abdominal pain R10.31 ; Cervicalgia M54.2 ; Acute gastritis without hemorrhage, unspecified gastritis type K29.00 and Hypertension I10 [place] [address] [address] Mar, Depression F32.9 and Anxiety disorder, u nspecified F41.9 [place] [address] [address] Feb, Depressive disorder F32.9 and Anxiety di sorder, unspecified F41.9 [place] [address] [address] Jan, Dysuria R30.0 ; Lower abdominal pain R10 .30 ; Acute bilateral low back pain without sciatica M54.5 ; Nausea and vomiting, unspecified intactability, vomiting of unspecified type R11.2 ; Pain in right foot M79.671 and Pain of left foot M79.672 [place] [address] [address] Dec, Urinary tract infection, site not specif ied N39.0 [facility] [address] [address] Dec, [facility] [address] [address] Nov, [facility] [address] [address] Nov, Dysuria R30.0 [place] [address] [address] Nov, Dysuria R30.0 and Acute cystitis with he maturia N30.01 [place] [address] [address] October, Nausea R11.0 [place] [address] [address] October, Thyroid nodule E04.1 ; Carpal tunnel syn drome, left upper limb G56.02 ; Carpal tunnel syndrome, right upper limb G56.01 and Constipation, unspecified constipation type K59.00 [place] [address] [address] October, [place] [address] [address] October, Thyroid nodule E04.1 [place] [address] [address] October, Cold thyroid nodule E04.1 [place] [address] [address] October, [facility] [address] [address] Sep, Thyroid nodule E04.1 [place] [address] [address] Sep, Thyroid nodule E04.1 [facility] [address] [address] Sep, Thyroid nodule E04.1 ; Hypertension I10 ; Esophageal reflux K21.9 and Hyperlipidemia, unspecified E78.5 [place] [address] [address] 14 Aug, 2015 Other chronic pain G89.29 ; Sinusitis J3 2.9 and Hypertension I10 [place] [address] [address] 29 Jul, 2015 [place] [address] [address] 15 Jul, [address] [address] 10 Jul, 2015 Insomnia G47.00 and Arthralgia M25.[address] [address] 10 Jul, 2015 Depressive disorder F32.9 and Anxiety di sorder, unspecified F41.[address] [address] May, Right-sided low back pain without sciati ca M54.5 and Depression F32.[address] [address] Apr, Hematuria R31.[address] [address] Mar, Other chronic pain G89.[address] [address] Mar, Other chronic pain G89.29 [place] [address] [address] Feb, [place] [id number] 22 Feb, 2015 Other chronic pain 338.29 ; Dysuria 788. 1 ; UTI (urinary tract infection) 599.0 ; Insomnia 780.52 ; Hot flashes 627.2 and Hypertension 401.[address] [address] Feb, Dysuria 788.1 [facility] [address] [address] Feb, [facility] [address] [address] Jan, [facility] [address] [address] Jan, [facility] [address] [address] Jan, Fibromyalgia 729.1 ; Hypertension 401.9 ; Dysthymia 300.4 and Hot flashes 627.2 [facility] [address] [address] Dec, [facility] [address] [address] Dec, [facility] [address] [address] Dec, [facility] [address] [address] Nov, Other chronic pain 338.29 [facility] [address] [address] October, [facility] [address] [address] October, [facility] [address] [address] Sep, [facility] [address] [address] Sep, [facility] [address] [address] Aug, [facility] [address] [address] Aug, [facility] [address] [address] Aug, [facility] [address] [id number] [place] [address] Aug, [facility] [address] [id number] [place] [address] Aug, [facility] [address] [id number] [place] [address] Aug, [facility] [address] [id number] [place] [address] Aug, [facility] [address] [id number] [place] [address] Aug, [facility] [address] [id number] [place] [address] Aug, [facility] [address] [id number] [place] [address] Aug, [facility] [address] [id number] [place] [address] Aug, [facility] [address] [id number] [place] [address] Aug, [facility] [address] [id number] [place] [address] Aug, [facility] [address] [id number] [place] [address] Aug, [facility] [address] [id number] [place] [address] Jul, [facility] [address] [id number] [place] [address] Jul, [facility] [address] [id number] [place] [address] Jul, [facility] [address] [id number] [place] [address] Jul, [facility] [address] [id number] [place] [address] Jul, [facility] [address] [id number] [place] [address] Jul, [facility] [address] [id number] [place] [address] Jun, [facility] [address] [id number] [place] [address] Jun, [facility] [address] [id number] [place] [address] Jun, [facility] [address] [id number] [place] [address] Jun, [facility] [address] [id number] [place] [address] May, [facility] [address] [id number] [place] [address] May, [facility] [address] [id number] [place] [address] May, [facility] [address] [id number] [place] [address] May, [facility] [address] [id number] [place] [address] May, [facility] [address] [id number] [place] [address] May, [facility] [address] [id number] [place] [address] May, [facility] [address] [id number] [place] [address] May, [facility] [address] [id number] [place] [address] May, [facility] [address] [id number] [place] [address] May, [facility] [address] [id number] [place] [address] Apr, [facility] [address] [id number] [place] [address] Apr, [facility] [address] [id number] [place] [address] Apr, [facility] [address] [id number] [place] [address] Apr, [facility] [address] [id number] [place] [address] Apr, [facility] [address] [id number] [place] [address] Apr, [facility] [address] [id number] [place] [address] Apr, [facility] [address] [id number] [place] [address] Apr, [facility] [address] [id number] [place] [address] Apr, [facility] [address] [id number] [place] [address] Mar, [facility] [address] [id number] [place] [address] Mar, [facility] [address] [id number] [place] [address] Mar, [facility] [address] [id number] [place] [address] Mar, [facility] [address] [id number] [place] [address] Mar, [facility] [address] [id number] [place] [address] Mar, [facility] [address] [id number] [place] [address] Mar, [facility] [address] [id number] [place] [address] Mar, [facility] [address] [id number] [place] [address] Feb, [facility] [address] [id number] [place] [address] 30 Feb, 2014 [facility] [address] [id number] [place] [address] 24 Feb, 2013 [facility] [address] [id number] [place] [address] 24 Feb, 2013 [facility] [address] [id number] [place] [address] 22 Feb, 2013 [facility] [address] [id number] [place] [address] 22 Feb, 2013 [facility] [address] [facility] [id number] [place] [address] 10 Feb, 2013 [facility] [address] [id number] [place] [address] Feb, 2013 [facility] [address] [id number] [place] [address] Feb, 2013 [facility] [address] [id number] [place] [address] Feb, 2013 [facility] [address] [id number] [place] [address] Feb, 2013 [facility] [address] [id number] [place] [address] Feb, 2013 [facility] [address] [id number] [place] [address] Feb, 2013 [facility] [address] [id number] [place] [address] Feb, 2013 [facility] [address] [id number] [place] [address] Jan, 2013 [facility] [address] [id number] [place] [address] Jan, [facility] [address] [id number] [place] [address] Dec, [facility] [address] [id number] [place] [address] Dec, [facility] [address] [id number] [place] [address] Dec, 2013 [facility] [address] [facility] [id number] [place] [address] Dec, 2013 [facility] [address] [id number] [facility] [place] [id number] Dec, 2013 [facility] [address] [facility] [id number] [facility] [place] [address] 15 Dec, 2013 [facility] [address] [facility] [id number] [place] [address] Dec, 2013 [facility] [address] [facility] [id number] [place] [address] Dec, 2013 [facility] [address] [facility] [id number] [place] [address] Dec, 2013 [facility] [address] [id number] [place] [address] Dec, 2013 [facility] [address] [id number] [place] [address] Dec, 2013 [facility] [address] [facility] [id number] [place] [address] Dec, 2013 [facility] [address] [id number] [place] [address] Dec, 2013 [facility] [address] [id number] [place] [address] Dec, 2013 [facility] [address] [id number] [place] [address] Dec, 2013 [facility] [address] [facility] [id number] [place] [address] Dec, 2013 [facility] [address] [facility] [id number] [place] [address] Dec, 2013 [facility] [address] [facility] [id number] [place] [address] Dec, 2013 [facility] [address] [id number] [place] [address] Dec, 2013 [facility] [address] [id number] [place] [address] Nov, [facility] [address] [id number] [place] [address] Nov, [facility] [address] [id number] [place] [address] Nov, [facility] [address] [id number] [place] [address] Nov, [facility] [address] [id number] [place] [address] Nov, [facility] [address] [facility] [id number] [place] [address] Nov, [facility] [id number] [place] [address] Nov, [facility] [id number] [place] [address] Nov, [facility] [id number] [place] [address] Nov, [facility] [id number] [place] [address] October, [facility] [id number] [place] [address] October, [facility] [id number] [place] [address] October, [facility] [id number] [place] [address] October, [facility] [id number] [place] [address] October, [facility] [address] [id number] [place] [address] October, [facility] [id number] [place] [address] October, [facility] [id number] [place] [address] October, [facility] [id number] [place] [address] Sep, [facility] [id number] [place] [address] Sep, [facility] [id number] [place] [address] Sep, [facility] [id number] [place] [address] Sep, [facility] [id number] [place] [address] Sep, [facility] [id number] [place] [address] Sep, [facility] [id number] [place] [address] Sep, [facility] [id number] [place] [address] Aug, [facility] [id number] [place] [address] Aug, [facility] [id number] [place] [address] Aug, [facility] [id number] [place] [address] Aug, [facility] [id number] [place] [address] Aug, [facility] [id number] [place] [address] Aug, [facility] [id number] [place] [address] Jul, [facility] [id number] [place] [address] Jul, [facility] [id number] [place] [address] Jul, [facility] [id number] [place] [address] Jul, [facility] [id number] [place] [address] Jul, [facility] [id number] [place] [address] Jul, [facility] [id number] [place] [address] Jun, [facility] [id number] [place] [address] Jun, [facility] [id number] [place] [address] Jun, [facility] [id number] [place] [address] Jun, [facility] [id number] [place] [address] Jun, [facility] [id number] [place] [address] Jun, [facility] [id number] [place] [address] Jun, [facility] [id number] [place] [address] Jun, [facility] [id number] [place] [address] Jun, [facility] [id number] [place] [address] Jun, [facility] [id number] [place] [address] Jun, [facility] [id number] [place] [address] Jun, [facility] [id number] [place] [address] Jun, [facility] [id number] [place] [address] May, [facility] [id number] [place] [address] 30 May, 2013 [facility] [id number] [place] [address] 30 May, 2013 [facility] [id number] [place] [address] 30 May, 2013 [facility] [id number] [place] [address] 26 May, 2012 [facility] [id number] [place] [address] 14 May, 2013 [facility] [id number] [place] [address] 14 May, 2013 [facility] [id number] [place] [address] May, [facility] [id number] [place] [address] 12 May, 2013 [facility] [id number] [place] [address] May, [facility] [id number] [place] [address] May, [facility] [id number] [place] [address] May, [facility] [id number] [place] [address] May, [facility] [id number] [place] [address] May, [facility] [id number] [place] [address] May, [facility] [id number] [place] [address] 08 May, 2013 [facility] [id number] [place] [address] 07 May, 2013 [facility] [id number] [place] [address] 06 May, 2013 [facility] [id number] [place] [address] May, 2012 [facility] [id number] [place] [address] May, 2012 [facility] [id number] [place] [address] May, [facility] [id number] [place] [address] Apr, [facility] [id number] [place] [address] Apr, [facility] [id number] [place] [address] Apr, [facility] [id number] [place] [address] Apr, [facility] [id number] [place] [address] 08 Mar, 2013 [facility] [id number] [place] [address] 23 Feb, 2012 [facility] [id number] [place] [address] 16 Feb, 2013 [facility] [id number] [place] [address] 13 Feb, 2012 [facility] [id number] [place] [address] 10 Feb, 2012 [facility] [id number] [place] [address] 09 Feb, 2012 [facility] [id number] [place] [address] 09 Feb, 2012 [facility] [id number] [place] [address] Jan, [facility] [id number] [place] [address] Jan, [facility] [id number] [facility] [place] [facility] [address] Jan, [facility] [address] [id number] [facility] [address] Dec, [facility] [address] [facility] [id number] [facility] [facility] [address] Dec, [facility] [id number] [facility] [address] Dec, [facility] [id number] [facility] [place] [facility] [address] Dec, [facility] [address] [facility] [id number] [facility] [address] Dec, [facility] [id number] [place] [address] Nov, [facility] [id number] [place] [address] Nov, [facility] [id number] [place] [address] Nov, [facility] [id number] [place] [address] Nov, [facility] [id number] [place] [address] Nov, [facility] [id number] [place] [address] Nov, [facility] [id number] [place] [address] Nov, [facility] [address] [facility] [id number] [place] [address] Nov, [facility] [id number] [place] [address] 05 Nov, 2012 [facility] [id number] [place] [address] Nov, [facility] [id number] [place] [address] October, [facility] [id number] [place] [address] October, [facility] [id number] [place] [address] Sep, [facility] [id number] [place] [address] Sep, [facility] [id number] [place] [address] Sep, [facility] [id number] [place] [address] Sep, [facility] [id number] [place] [address] Sep, [facility] [id number] [place] [address] Aug, [facility] [id number] [place] [address] Aug, [facility] [id number] [place] [address] Jul, [facility] [id number] [place] [address] Jul, [facility] [id number] [place] [address] Jun, [facility] [id number] [place] [address] Jun, [facility] [id number] [place] [address] May, [facility] [id number] [place] [address] May, [facility] [id number] [place] [address] May, [facility] [id number] [place] [address] May, [facility] [id number] [place] [address] Apr, [facility] [id number] [place] [address] Apr, [facility] [id number] [place] [address] Apr, [facility] [id number] [place] [address] Apr, [facility] [id number] [place] [address] Apr, [facility] [id number] [place] [address] Apr, [facility] [id number] [place] [address] Apr, [facility] [id number] [place] [address] Apr, [facility] [id number] [place] [address] Apr, [facility] [id number] [place] [address] 15 Mar, 2012 [facility] [id number] [place] [address] Mar, [facility] [id number] [place] [address] Feb, [facility] [id number] [place] [address] Jan, [facility] [id number] [place] [address] Jan, [facility] [id number] [place] [address] Dec, [facility] [id number] [place] [address] Nov, [facility] [id number] [place] [address] Nov, [facility] [id number] [place] [address] October, [facility] [id number] [place] [address] October, [facility] [id number] [place] [address] Sep, [facility] [id number] [place] [address] Sep, [facility] [id number] [place] [address] May, [facility] [id number] [place] [address] Apr, [facility] [id number] [place] [address] Apr, [facility] [id number] [place] [address] 15 Apr, 2011 [facility] [id number] [place] [address] 15 Apr, 2011 [facility] [id number] [place] [address] Apr, [facility] [id number] [place] [address] Apr, [facility] [id number] [place] [address] Apr, [facility] [id number] [place] [address] Apr, [facility] [id number] [place] [address] Mar, [facility] [id number] [place] [address] Mar, [facility] [id number] [place] [address] Mar, [facility] [id number] [place] [address] Mar, [facility] [address] [facility] [id number] [place] [address] Mar, [facility] [address] [facility] [id number] [place] [address] Mar, IMMUNIZATIONS No Known Immunizations SOCIAL HISTORY [...] Stomach surgeryx3 Hospitalization History Mental floor at [facility]
--- OUTSIDE RECORDS SUMMARY | 2019-12-24 19:47 | XMS REPORT ---
Author Author Deann Trey Doctor Organization [facility] Address Unknown Phone Unavailable Care Team Providers Care Platform Stapler Name Role Phone Migration, Doctor Unavailable Unavailable PROBLEMS Type Condition ICD9-CM Code ORF23-QM Code Onset Dates Condition S tatus SNOMED Code Problem Nondependent 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 Ac tive 575586063 Problem Other chronic pain G89.29 Active 1 08644623 Problem Unspecified epilepsy without mention of intractable ep ilepsy G40.909 Active 22287527 Problem Hyperlipidemia, unspecified E78.5 Ac tive 75890157 Problem Hypertension I10 Active 5904374 3 Problem Esophageal reflux K21.9 Active 23 3719336 Problem Rheumatoid arthritis M06.9 Active 58732093 Problem Cough R05 Active 06685266 Problem Acquired hypothyroidism E03.9 Active 456450210 Problem Unspecified open-angle glaucoma, stage unspecified H40.10X0 Feb, Active 17660838 Problem Presbyopia H52.4 Active 83968434 Problem Insomnia G47.00 Active 262454766 Problem Arthralgia M25.50 Active 13166133 Problem Thyroid nodule E04.1 Active 37676 5005 Problem Anxiety disorder, unspecified F41.9 Active 147273728 Problem Chronic tension-type headache, intractable G44.221 Active 256779507 Problem Neuropathy G62.9 Active 144972993 Problem Goiter E04.9 Active 8681612 Problem Multinodular goiter E04.2 Active 227729142 Problem Carpal tunnel syndrome of left wrist G56.02 Active [id number] Problem Chronic obstructive pulmonary disease, unspecified COPD ty pe J44.9 Active 08209404 Problem BMI 40.0-44.9, adult Z68.41 Active 469714262 Problem Seasonal allergic rhinitis due to pollen J30.1 Active 32965253 Problem Depression F32.9 Active 65345016 Problem Essential hypertension I10 Active 34646173 Problem Depressive disorder F32.9 Active 09610882 Problem Right-sided low back pain without sciatica M54.5 Active 461904428 Problem Reactive airway disease with out complication, unspecified asthma severity, unspecified whether persistent J45.909 Active 096853404332 Problem Urge incontinence of urine N39.41 Act chen 88974790 Problem Abnormal laboratory test R89.9 Activ e 312585359 Problem COPD with exacerbation J44.1 Active 804733304 ALLERGIES No Information ENCOUNTERS Encounter Location Date Diagnosis [place] [address] [address] Apr, Bronchitis J40 [place] [address] [address] 04 Apr, 2019 Acute gastritis without hemorrhage, unsp ecified gastritis type K29.00 [place] [address] [address] Mar, [place] [address] [address] Feb, [place] [address] [address] Feb, Mass of right side of neck R22.1 and Mul tinodular goiter E04.2 [facility] [place] [address] [address] Jan, Bronchitis J40 [place] [address] [address] October, Acquired hypothyroidism E03.9 [place] [address] [address] October, Acute gastritis without hemorrhage, unsp ecified gastritis type K29.00 ; Epigastric pain R10.13 ; Essential hypertension I10 ; Screening for colon cancer Z12.11 and BMI 40.0-44.9, adult Z68.41 [place] [address] [address] October, [facility] [address] [place] [id number] [place] [address] October, Chest pain R07.9 and Morbid obesity E66.01 [facility] [address] [place] [id number] [place] [address] Sep, Generalized abdominal pain R 10.84 ; Morbid obesity E66.01 ; Non-intractable vomiting with nausea, unspecified vomiting type R11.2 and Seasonal allergic rhinitis due to pollen J30.1 [facility] [address] [place] [id number] [place] [address] 28 Jul, 2018 COPD with exacerbation J44.1 ; Viral upper respiratory tract infection J06.9 and Morbid obesity E66.01 [facility] [address] [address] Jun, Viral upper respiratory trac t infection J06.9 [place] [address] [address] Apr, Abnormal laboratory test R89.9 [place] [address] [address] Apr, Abnormal laboratory test R89.9 [place] [address] [address] Apr, Abnormal laboratory test R89.9 [place] [address] [address] Apr, [place] [address] [address] Apr, [place] [address] [address] Apr, Nonintractable episodic headache, unspec ified headache type R51 ; Urge incontinence of urine N39.41 ; BMI 40.0-44.9, adult Z68.41 ; Myalgia M79.10 and Acute cystitis without hematuria N30.00 [place] [address] [address] Mar, Nasal congestion R09.81 ; Low back pain M54.5 ; Reactive airway disease without complication, unspecified asthma severity, unspecified whether persistent J45.909 ; Other chronic pain G89.29 ; Acute cystitis with hematuria N30.01 and BMI 40.0-44.9, adult Z68.41 [place] [address] [place] [id number] Mar, Acute cystitis with hematuria N30.01 [facility] [address] [facility] [id number] [address] [place] [address] Mar, BMI 40.0-44.9, adult Z68.41 ; Acute cystitis with hematuria N30.01 ; Acute bilateral low back pain without sciatica M54.5 and Nausea R11.0 [place] [address] [address] Mar, Hypertension I10 ; Acquired hypothyroidi sm E03.9 ; Esophageal reflux K21.9 ; Chronic obstructive pulmonary disease, unspecified COPD type J44.9 and BMI 40.0-44.9, adult Z68.[address] [address] Mar, Hypertension I10 [place] [address] [address] Nov, Hyperlipidemia, unspecified E78.[address] [address] October, Chest pain, unspecified type R07.9 and A cquired hypothyroidism E03.[address] [address] October, Chest pain, unspecified type R07.9 ; Fam demetrius history of coronary artery disease Z82.49 ; Carpal tunnel syndrome of left wrist G56.02 ; Hypertension I10 ; Esophageal reflux K21.9 ; Arthralgia M25.50 ; Acquired hypothyroidism E03.9 ; Cough R05 ; Nausea R11.0 ; Weight gain R63.5 and BMI 45.0-49.9, adult Z68.[address] [address] Jun, Acquired hypothyroidism E03.9 and Cough R05 [place] [address] [address] May, [place] [address] [address] Feb, Tarsal tunnel syndrome of both lower ext remities G57.53 and Neuropathy G62.9 [place] [address] [address] Dec, Pleuritis R09.1 [place] [address] [address] Nov, [place] [address] [address] October, Arthralgia, unspecified joint M25.50 and Allergy, initial encounter T78.40XA [place] [address] [address] October, [place] [address] [address] October, Acute recurrent maxillary sinusitis J01. 01 and Arthralgia M25.50 [place] [address] [address] Sep, Pharyngitis due to other organism J02.8 [place] [address] [address] Aug, Acute nasopharyngitis J00 [place] [address] [address] Aug, Multinodular goiter E04.2 [place] [address] [address] Aug, Thyroid nodule E04.1 [place] [address] [address] 17 Jul, 2016 Tarsal tunnel syndrome of both lower ext remities G57.53 [place] [address] [address] Jun, Pneumonia due to infectious organism, un specified laterality, unspecified part of lung J18.9 [place] [address] [place] [id number] Jun, Bronchospasm with bronchitis, acute J20. 9 [place] [address] [address] May, Acute non-recurrent frontal sinusitis J0 1.10 [place] [address] [address] May, Flat foot [pes planus] (acquired), left foot M21.42 ; Flat foot [pes planus] (acquired), right foot M21.41 and Neuropathy G62.9 [place] [address] [address] Apr, Chronic tension-type headache, intractab le G44.221 ; Right lower quadrant abdominal pain R10.31 ; Cervicalgia M54.2 ; Acute gastritis without hemorrhage, unspecified gastritis type K29.00 and Hypertension I10 [place] [address] [address] Mar, Depression F32.9 and Anxiety disorder, u nspecified F41.9 [place] [address] [address] Feb, Depressive disorder F32.9 and Anxiety di sorder, unspecified F41.9 [place] [address] [address] Jan, Dysuria R30.0 ; Lower abdominal pain R10 .30 ; Acute bilateral low back pain without sciatica M54.5 ; Nausea and vomiting, unspecified intactability, vomiting of unspecified type R11.2 ; Pain in right foot M79.671 and Pain of left foot M79.672 [place] [address] [address] Dec, Urinary tract infection, site not specif ied N39.0 [facility] [address] [address] Dec, [facility] [address] [address] Nov, [facility] [address] [address] Nov, Dysuria R30.0 [place] [address] [address] Nov, Dysuria R30.0 and Acute cystitis with he maturia N30.01 [place] [address] [address] October, Nausea R11.0 [place] [address] [address] October, Thyroid nodule E04.1 ; Carpal tunnel syn drome, left upper limb G56.02 ; Carpal tunnel syndrome, right upper limb G56.01 and Constipation, unspecified constipation type K59.00 [place] [address] [address] October, [place] [address] [address] October, Thyroid nodule E04.1 [place] [address] [address] October, Cold thyroid nodule E04.1 [place] [address] [address] October, [facility] [address] [address] Sep, Thyroid nodule E04.1 [place] [address] [address] Sep, Thyroid nodule E04.1 [facility] [address] [address] Sep, Thyroid nodule E04.1 ; Hypertension I10 ; Esophageal reflux K21.9 and Hyperlipidemia, unspecified E78.5 [place] [address] [address] 14 Aug, 2015 Other chronic pain G89.29 ; Sinusitis J3 2.9 and Hypertension I10 [place] [address] [address] 29 Jul, 2015 [place] [address] [address] 15 Jul, [address] [address] 10 Jul, 2015 Insomnia G47.00 and Arthralgia M25.[address] [address] 10 Jul, 2015 Depressive disorder F32.9 and Anxiety di sorder, unspecified F41.[address] [address] May, Right-sided low back pain without sciati ca M54.5 and Depression F32.[address] [address] Apr, Hematuria R31.[address] [address] Mar, Other chronic pain G89.[address] [address] Mar, Other chronic pain G89.29 [place] [address] [address] Feb, [place] [id number] 22 Feb, 2015 Other chronic pain 338.29 ; Dysuria 788. 1 ; UTI (urinary tract infection) 599.0 ; Insomnia 780.52 ; Hot flashes 627.2 and Hypertension 401.[address] [address] Feb, Dysuria 788.1 [facility] [address] [address] Feb, [facility] [address] [address] Jan, [facility] [address] [address] Jan, [facility] [address] [address] Jan, Fibromyalgia 729.1 ; Hypertension 401.9 ; Dysthymia 300.4 and Hot flashes 627.2 [facility] [address] [address] Dec, [facility] [address] [address] Dec, [facility] [address] [address] Dec, [facility] [address] [address] Nov, Other chronic pain 338.29 [facility] [address] [address] October, [facility] [address] [address] October, [facility] [address] [address] Sep, [facility] [address] [address] Sep, [facility] [address] [address] Aug, [facility] [address] [address] Aug, [facility] [address] [address] Aug, [facility] [address] [id number] [place] [address] Aug, [facility] [address] [id number] [place] [address] Aug, [facility] [address] [id number] [place] [address] Aug, [facility] [address] [id number] [place] [address] Aug, [facility] [address] [id number] [place] [address] Aug, [facility] [address] [id number] [place] [address] Aug, [facility] [address] [id number] [place] [address] Aug, [facility] [address] [id number] [place] [address] Aug, [facility] [address] [id number] [place] [address] Aug, [facility] [address] [id number] [place] [address] Aug, [facility] [address] [id number] [place] [address] Aug, [facility] [address] [id number] [place] [address] Jul, [facility] [address] [id number] [place] [address] Jul, [facility] [address] [id number] [place] [address] Jul, [facility] [address] [id number] [place] [address] Jul, [facility] [address] [id number] [place] [address] Jul, [facility] [address] [id number] [place] [address] Jul, [facility] [address] [id number] [place] [address] Jun, [facility] [address] [id number] [place] [address] Jun, [facility] [address] [id number] [place] [address] Jun, [facility] [address] [id number] [place] [address] Jun, [facility] [address] [id number] [place] [address] May, [facility] [address] [id number] [place] [address] May, [facility] [address] [id number] [place] [address] May, [facility] [address] [id number] [place] [address] May, [facility] [address] [id number] [place] [address] May, [facility] [address] [id number] [place] [address] May, [facility] [address] [id number] [place] [address] May, [facility] [address] [id number] [place] [address] May, [facility] [address] [id number] [place] [address] May, [facility] [address] [id number] [place] [address] May, [facility] [address] [id number] [place] [address] Apr, [facility] [address] [id number] [place] [address] Apr, [facility] [address] [id number] [place] [address] Apr, [facility] [address] [id number] [place] [address] Apr, [facility] [address] [id number] [place] [address] Apr, [facility] [address] [id number] [place] [address] Apr, [facility] [address] [id number] [place] [address] Apr, [facility] [address] [id number] [place] [address] Apr, [facility] [address] [id number] [place] [address] Apr, [facility] [address] [id number] [place] [address] Mar, [facility] [address] [id number] [place] [address] Mar, [facility] [address] [id number] [place] [address] Mar, [facility] [address] [id number] [place] [address] Mar, [facility] [address] [id number] [place] [address] Mar, [facility] [address] [id number] [place] [address] Mar, [facility] [address] [id number] [place] [address] Mar, [facility] [address] [id number] [place] [address] Mar, [facility] [address] [id number] [place] [address] Feb, [facility] [address] [id number] [place] [address] 30 Feb, 2014 [facility] [address] [id number] [place] [address] 24 Feb, 2013 [facility] [address] [id number] [place] [address] 24 Feb, 2013 [facility] [address] [id number] [place] [address] 22 Feb, 2013 [facility] [address] [id number] [place] [address] 22 Feb, 2013 [facility] [address] [facility] [id number] [place] [address] 10 Feb, 2013 [facility] [address] [id number] [place] [address] Feb, 2013 [facility] [address] [id number] [place] [address] Feb, 2013 [facility] [address] [id number] [place] [address] Feb, 2013 [facility] [address] [id number] [place] [address] Feb, 2013 [facility] [address] [id number] [place] [address] Feb, 2013 [facility] [address] [id number] [place] [address] Feb, 2013 [facility] [address] [id number] [place] [address] Feb, 2013 [facility] [address] [id number] [place] [address] Jan, 2013 [facility] [address] [id number] [place] [address] Jan, [facility] [address] [id number] [place] [address] Dec, [facility] [address] [id number] [place] [address] Dec, [facility] [address] [id number] [place] [address] Dec, 2013 [facility] [address] [facility] [id number] [place] [address] Dec, 2013 [facility] [address] [id number] [facility] [place] [id number] Dec, 2013 [facility] [address] [facility] [id number] [facility] [place] [address] 15 Dec, 2013 [facility] [address] [facility] [id number] [place] [address] Dec, 2013 [facility] [address] [facility] [id number] [place] [address] Dec, 2013 [facility] [address] [facility] [id number] [place] [address] Dec, 2013 [facility] [address] [id number] [place] [address] Dec, 2013 [facility] [address] [id number] [place] [address] Dec, 2013 [facility] [address] [facility] [id number] [place] [address] Dec, 2013 [facility] [address] [id number] [place] [address] Dec, 2013 [facility] [address] [id number] [place] [address] Dec, 2013 [facility] [address] [id number] [place] [address] Dec, 2013 [facility] [address] [facility] [id number] [place] [address] Dec, 2013 [facility] [address] [facility] [id number] [place] [address] Dec, 2013 [facility] [address] [facility] [id number] [place] [address] Dec, 2013 [facility] [address] [id number] [place] [address] Dec, 2013 [facility] [address] [id number] [place] [address] Nov, [facility] [address] [id number] [place] [address] Nov, [facility] [address] [id number] [place] [address] Nov, [facility] [address] [id number] [place] [address] Nov, [facility] [address] [id number] [place] [address] Nov, [facility] [address] [facility] [id number] [place] [address] Nov, [facility] [address] [id number] [place] [address] Nov, [facility] [address] [id number] [place] [address] Nov, [facility] [address] [id number] [place] [address] Nov, [facility] [address] [id number] [place] [address] October, [facility] [address] [id number] [place] [address] October, [facility] [address] [id number] [place] [address] October, [facility] [address] [id number] [place] [address] October, [facility] [address] [id number] [place] [address] October, [facility] [address] [id number] [place] [address] October, [facility] [address] [id number] [place] [address] October, [facility] [address] [id number] [place] [address] October, [facility] [address] [id number] [place] [address] Sep, [facility] [address] [id number] [place] [address] Sep, [facility] [address] [id number] [place] [address] Sep, [facility] [address] [id number] [place] [address] Sep, [facility] [address] [id number] [place] [address] Sep, [facility] [address] [id number] [place] [address] Sep, [facility] [address] [id number] [place] [address] Sep, [facility] [address] [id number] [place] [address] Aug, [facility] [address] [id number] [place] [address] Aug, [facility] [address] [id number] [place] [address] Aug, [facility] [address] [id number] [place] [address] Aug, [facility] [address] [id number] [place] [address] Aug, [facility] [address] [id number] [place] [address] Aug, [facility] [address] [id number] [place] [address] Jul, [facility] [address] [id number] [place] [address] Jul, [facility] [address] [id number] [place] [address] Jul, [facility] [address] [id number] [place] [address] Jul, [facility] [address] [id number] [place] [address] Jul, [facility] [address] [id number] [place] [address] Jul, [facility] [address] [id number] [place] [address] Jun, [facility] [address] [id number] [place] [address] Jun, [facility] [address] [id number] [place] [address] Jun, [facility] [address] [id number] [place] [address] Jun, [facility] [address] [id number] [place] [address] Jun, [facility] [address] [id number] [place] [address] Jun, [facility] [address] [id number] [place] [address] Jun, [facility] [address] [id number] [place] [address] Jun, [facility] [address] [id number] [place] [address] Jun, [facility] [address] [id number] [place] [address] Jun, [facility] [address] [id number] [place] [address] Jun, [facility] [address] [id number] [place] [address] Jun, [facility] [address] [id number] [place] [address] Jun, [facility] [address] [id number] [place] [address] May, [facility] [address] [id number] [place] [address] 30 May, 2013 [facility] [address] [id number] [place] [address] 30 May, 2013 [facility] [address] [id number] [place] [address] 30 May, 2013 [facility] [address] [id number] [place] [address] 26 May, 2012 [facility] [address] [id number] [place] [address] 14 May, 2013 [facility] [address] [id number] [place] [address] 14 May, 2013 [facility] [address] [id number] [place] [address] May, [facility] [address] [id number] [place] [address] 12 May, 2013 [facility] [address] [id number] [place] [address] May, [facility] [address] [id number] [place] [address] May, [facility] [address] [id number] [place] [address] May, [facility] [address] [id number] [place] [address] May, [facility] [address] [id number] [place] [address] May, [facility] [address] [id number] [place] [address] May, [facility] [address] [id number] [place] [address] 08 May, 2013 [facility] [address] [id number] [place] [address] 07 May, 2013 [facility] [address] [id number] [place] [address] 06 May, 2013 [facility] [address] [id number] [place] [address] May, 2012 [facility] [address] [id number] [place] [address] May, 2012 [facility] [address] [id number] [place] [address] May, [facility] [address] [id number] [place] [address] Apr, [facility] [address] [id number] [place] [address] Apr, [facility] [address] [id number] [place] [address] Apr, [facility] [address] [id number] [place] [address] Apr, [facility] [address] [id number] [place] [address] 08 Mar, 2013 [facility] [address] [id number] [place] [address] 23 Feb, 2012 [facility] [address] [id number] [place] [address] 16 Feb, 2013 [facility] [address] [id number] [place] [address] 13 Feb, 2012 [facility] [address] [id number] [place] [address] 10 Feb, 2012 [facility] [address] [id number] [place] [address] 09 Feb, 2012 [facility] [address] [id number] [place] [address] 09 Feb, 2012 [facility] [address] [id number] [place] [address] Jan, [facility] [address] [id number] [place] [address] Jan, [facility] [address] [id number] [facility] [place] [address] Jan, [facility] [address] [id number] [facility] [place] [address] Dec, [facility] [address] [facility] [id number] [facility] [place] [address] Dec, [facility] [address] [id number] [facility] [place] [address] Dec, [facility] [address] [id number] [facility] [place] [address] Dec, [facility] [address] [facility] [id number] [facility] [place] [address] Dec, [facility] [address] [id number] [place] [address] Nov, [facility] [address] [id number] [place] [address] Nov, [facility] [address] [id number] [place] [address] Nov, [facility] [address] [id number] [place] [address] Nov, [facility] [address] [id number] [place] [address] Nov, [facility] [address] [id number] [place] [address] Nov, [facility] [address] [id number] [place] [address] Nov, [facility] [address] [facility] [id number] [place] [address] Nov, [facility] [address] [id number] [place] [address] 05 Nov, 2012 [facility] [address] [id number] [place] [address] Nov, [facility] [address] [id number] [place] [address] October, [facility] [address] [id number] [place] [address] October, [facility] [address] [id number] [place] [address] Sep, [facility] [address] [id number] [place] [address] Sep, [facility] [address] [id number] [place] [address] Sep, [facility] [address] [id number] [place] [address] Sep, [facility] [address] [id number] [place] [address] Sep, [facility] [address] [id number] [place] [address] Aug, [facility] [address] [id number] [place] [address] Aug, [facility] [address] [id number] [place] [address] Jul, [facility] [address] [id number] [place] [address] Jul, [facility] [address] [id number] [place] [address] Jun, [facility] [address] [id number] [place] [address] Jun, [facility] [address] [id number] [place] [address] May, [facility] [address] [id number] [place] [address] May, [facility] [address] [id number] [place] [address] May, [facility] [address] [id number] [place] [address] May, [facility] [address] [id number] [place] [address] Apr, [facility] [address] [id number] [place] [address] Apr, [facility] [address] [id number] [place] [address] Apr, [facility] [address] [id number] [place] [address] Apr, [facility] [address] [id number] [place] [address] Apr, [facility] [address] [id number] [place] [address] Apr, [facility] [address] [id number] [place] [address] Apr, [facility] [address] [id number] [place] [address] Apr, [facility] [address] [id number] [place] [address] Apr, [facility] [address] [id number] [place] [address] 15 Mar, 2012 [facility] [address] [id number] [place] [address] Mar, [facility] [address] [id number] [place] [address] Feb, [facility] [address] [id number] [place] [address] Jan, [facility] [address] [id number] [place] [address] Jan, [facility] [address] [id number] [place] [address] Dec, [facility] [address] [id number] [place] [address] Nov, [facility] [address] [id number] [place] [address] Nov, [facility] [address] [id number] [place] [address] October, [facility] [address] [id number] [place] [address] October, [facility] [address] [id number] [place] [address] Sep, [facility] [address] [id number] [place] [address] Sep, [facility] [address] [id number] [place] [address] May, [facility] [address] [id number] [place] [address] Apr, [facility] [address] [id number] [place] [address] Apr, [facility] [address] [id number] [place] [address] 15 Apr, 2011 [facility] [address] [id number] [place] [address] 15 Apr, 2011 [facility] [address] [id number] [place] [address] Apr, [facility] [address] [id number] [place] [address] Apr, [facility] [address] [id number] [place] [address] Apr, [facility] [address] [id number] [place] [address] Apr, [facility] [address] [id number] [place] [address] Mar, [facility] [id number] [place] [address] Mar, [facility] [address] [id number] [place] [address] Mar, [facility] [address] [id number] [place] [address] Mar, [facility] [address] [facility] [id number] [place] [address] Mar, [facility] [address] [facility] [id number] [place] [address] Mar, IMMUNIZATIONS No Known Immunizations SOCIAL HISTORY [...] surgeryx3 Hospitalization History Mental floor at [facility]
--- OUTSIDE RECORDS SUMMARY | 2019-12-24 19:47 | XMS REPORT ---
Author Author Trey ANDRADE Organization [facility] Address [address] [place] [address] Care Team Providers Care Admissions Coordinator Name Role Phone SURESH ANDRADE Unavailable PROBLEMS Type Condition ICD9-CM Code PYN12-XW Code Onset Dates Condition S tatus SNOMED Code Problem Nondependent 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 Ac tive 424026999 Problem Other chronic pain G89.29 Active 1 55479948 Problem Unspecified epilepsy without mention of intractable ep ilepsy G40.909 Active 67676212 Problem Hyperlipidemia, unspecified E78.5 Ac tive 10266235 Problem Hypertension I10 Active 6017131 3 Problem Esophageal reflux K21.9 Active 23 7179995 Problem Rheumatoid arthritis M06.9 Active 41516093 Problem Cough R05 Active 58702299 Problem Acquired hypothyroidism E03.9 Active 734003413 Problem Unspecified open-angle glaucoma, stage unspecified H40.10X0 Feb, Active 60533200 Problem Presbyopia H52.4 Active 32044413 Problem Insomnia G47.00 Active 710213495 Problem Arthralgia M25.50 Active 42013470 Problem Thyroid nodule E04.1 Active 79953 5005 Problem Anxiety disorder, unspecified F41.9 Active 649549548 Problem Chronic tension-type headache, intractable G44.221 Active 247091726 Problem Neuropathy G62.9 Active 137060473 Problem Goiter E04.9 Active 0919691 Problem Multinodular goiter E04.2 Active 311928758 Problem Carpal tunnel syndrome of left wrist G56.02 Active 344278859518894 Problem Chronic obstructive pulmonary disease, unspecified COPD ty pe J44.9 Active 28622393 Problem BMI 40.0-44.9, adult Z68.41 Active 450586388 Problem Seasonal allergic rhinitis due to pollen J30.1 Active 27130133 Problem Depression F32.9 Active 59034332 Problem Essential hypertension I10 Active 14960711 Problem Depressive disorder F32.9 Active 41877539 Problem Right-sided low back pain without sciatica M54.5 Active 236343797 Problem Reactive airway disease with out complication, unspecified asthma severity, unspecified whether persistent J45.909 Active 747726406950 Problem Urge incontinence of urine N39.41 Act chen 61539190 Problem Abnormal laboratory test R89.9 Activ e 804198032 Problem COPD with exacerbation J44.1 Active 822132048 ALLERGIES No Information ENCOUNTERS Encounter Location Date Diagnosis [place] [address] [address] Apr, Bronchitis J40 [place] [address] [address] Apr, Acute gastritis without hemorrhage, unsp ecified gastritis type K29.00 [place] [address] [address] Mar, [place] [address] [address] Feb, [place] [address] [address] Feb, Mass of right side of neck R22.1 and Mul tinodular goiter E04.2 [facility] [place] [id number] [place] [address] Jan, Bronchitis J40 [place] [address] [address] October, Acquired hypothyroidism E03.9 [place] [address] [address] October, Acute gastritis without hemorrhage, unsp ecified gastritis type K29.00 ; Epigastric pain R10.13 ; Essential hypertension I10 ; Screening for colon cancer Z12.11 and BMI 40.0-44.9, adult Z68.41 [place] [address] [address] October, [facility] [address] [address] October, Chest pain R07.9 and Morbid obesity E66.01 [facility] [address] [address] Sep, Generalized abdominal pain R 10.84 ; Morbid obesity E66.01 ; Non-intractable vomiting with nausea, unspecified vomiting type R11.2 and Seasonal allergic rhinitis due to pollen J30.1 [facility] [address] [address] Jul, COPD with exacerbation J44.1 ; Viral upper respiratory tract infection J06.9 and Morbid obesity E66.01 [facility] [address] [address] Jun, Viral upper respiratory trac t infection J06.9 [place] [address] [address] Apr, Abnormal laboratory test R89.9 [place] [address] [address] Apr, Abnormal laboratory test R89.9 [place] [address] [address] Apr, Abnormal laboratory test R89.9 [place] [address] [address] Apr, [place] [address] [address] Apr, [place] [address] [address] Apr, Nonintractable episodic headache, unspec ified headache type R51 ; Urge incontinence of urine N39.41 ; BMI 40.0-44.9, adult Z68.41 ; Myalgia M79.10 and Acute cystitis without hematuria N30.00 [place] [address] [address] Mar, Nasal congestion R09.81 ; Low back pain M54.5 ; Reactive airway disease without complication, unspecified asthma severity, unspecified whether persistent J45.909 ; Other chronic pain G89.29 ; Acute cystitis with hematuria N30.01 and BMI 40.0-44.9, adult Z68.41 [facility] [address] [address] Mar, Acute cystitis with hematuria N30.01 [facility] IN [facility] [address] [facility] [id number] [address] [place] [address] Mar, BMI 40.0-44.9, adult Z68.41 ; Acute cystitis with hematuria N30.01 ; Acute bilateral low back pain without sciatica M54.5 and Nausea R11.0 [place] [address] [address] Mar, Hypertension I10 ; Acquired hypothyroidi sm E03.9 ; Esophageal reflux K21.9 ; Chronic obstructive pulmonary disease, unspecified COPD type J44.9 and BMI 40.0-44.9, adult Z68.41 [place] [address] [address] Mar, Hypertension I10 [place] [address] [address] Nov, Hyperlipidemia, unspecified E78.[address] [address] October, Chest pain, unspecified type R07.9 and A cquired hypothyroidism E03.9 [place] [address] [address] October, Chest pain, unspecified type R07.9 ; Fam demetrius history of coronary artery disease Z82.49 ; Carpal tunnel syndrome of left wrist G56.02 ; Hypertension I10 ; Esophageal reflux K21.9 ; Arthralgia M25.50 ; Acquired hypothyroidism E03.9 ; Cough R05 ; Nausea R11.0 ; Weight gain R63.5 and BMI 45.0-49.9, adult Z68.42 [place] [address] [address] Jun, Acquired hypothyroidism E03.9 and Cough R05 [place] [address] [address] May, [place] [address] [address] Feb, Tarsal tunnel syndrome of both lower ext remities G57.53 and Neuropathy G62.9 [place] [address] [address] Dec, Pleuritis R09.1 [place] [address] [address] Nov, [place] [address] [address] October, Arthralgia, unspecified joint M25.50 and Allergy, initial encounter T78.40XA [place] [address] [address] October, [place] [address] [address] October, Acute recurrent maxillary sinusitis J01. 01 and Arthralgia M25.50 [place] [address] [address] Sep, Pharyngitis due to other organism J02.8 [place] [address] [address] Aug, Acute nasopharyngitis J00 [place] [address] [address] Aug, Multinodular goiter E04.2 [place] [address] [address] Aug, Thyroid nodule E04.1 [place] [address] [address] Jul, Tarsal tunnel syndrome of both lower ext remities G57.53 [place] [address] [address] Jun, Pneumonia due to infectious organism, un specified laterality, unspecified part of lung J18.9 [place] [address] [address] Jun, Bronchospasm with bronchitis, acute J20. 9 [place] [address] [address] May, Acute non-recurrent frontal sinusitis J0 1.10 [place] [address] [address] May, Flat foot [pes planus] (acquired), left foot M21.42 ; Flat foot [pes planus] (acquired), right foot M21.41 and Neuropathy G62.9 [place] [address] [address] Apr, Chronic tension-type headache, intractab le G44.221 ; Right lower quadrant abdominal pain R10.31 ; Cervicalgia M54.2 ; Acute gastritis without hemorrhage, unspecified gastritis type K29.00 and Hypertension I10 [address] [address] Mar, Depression F32.9 and Anxiety disorder, u nspecified F41.9 [place] [address] [address] Feb, Depressive disorder F32.9 and Anxiety di sorder, unspecified F41.9 [place] [address] [address] Jan, Dysuria R30.0 ; Lower abdominal pain R10 .30 ; Acute bilateral low back pain without sciatica M54.5 ; Nausea and vomiting, unspecified intactability, vomiting of unspecified type R11.2 ; Pain in right foot M79.671 and Pain of left foot M79.[address] [address] Dec, Urinary tract infection, site not specif ied N39.0 [facility] [address] [address] Dec, [facility] [address] [address] Nov, [facility] [address] [address] Nov, Dysuria R30.0 [facility] [address] [address] Nov, Dysuria R30.0 and Acute cystitis with he maturia N30.01 [facility] [address] [address] October, Nausea R11.0 [facility] [address] [address] October, Thyroid nodule E04.1 ; Carpal tunnel syn drome, left upper limb G56.02 ; Carpal tunnel syndrome, right upper limb G56.01 and Constipation, unspecified constipation type K59.00 [facility] [address] [address] October, [facility] [address] [address] October, Thyroid nodule E04.1 [facility] [address] [address] October, Cold thyroid nodule E04.1 [facility] [address] [address] October, [facility] [address] [address] Sep, Thyroid nodule E04.1 [facility] [address] [address] Sep, Thyroid nodule E04.1 [facility] [address] [address] Sep, Thyroid nodule E04.1 ; Hypertension I10 ; Esophageal reflux K21.9 and Hyperlipidemia, unspecified E78.5 [place] [address] [address] Aug, Other chronic pain G89.29 ; Sinusitis J3 2.9 and Hypertension I10 [place] [address] [address] Jul, [place] [address] [address] 15 Jul, [address] [address] 10 Jul, 2015 Insomnia G47.00 and Arthralgia M25.[address] [address] 10 Jul, 2015 Depressive disorder F32.9 and Anxiety di sorder, unspecified F41.[address] [address] May, Right-sided low back pain without sciati ca M54.5 and Depression F32.[address] [address] Apr, Hematuria R31.[address] [address] Mar, Other chronic pain G89.[address] [address] Mar, Other chronic pain G89.[address] [address] Feb, [address] [address] Feb, Other chronic pain 338.29 ; Dysuria 788. 1 ; UTI (urinary tract infection) 599.0 ; Insomnia 780.52 ; Hot flashes 627.2 and Hypertension 401.9 [facility] [address] [place] [id number] [place] [address] Feb, Dysuria 788.1 [facility] [address] [place] [id number] [place] [address] Feb, [facility] [address] [address] Jan, [facility] [address] [address] Jan, [facility] [address] [address] Jan, Fibromyalgia 729.1 ; Hypertension 401.9 ; Dysthymia 300.4 and Hot flashes 627.2 [facility] [address] [address] Dec, [facility] [address] [address] Dec, [facility] [address] [place] [id number] [place] [address] Dec, [facility] [address] [address] Nov, Other chronic pain 338.29 [facility] [address] [place] [id number] [place] [address] October, [facility] [address] [address] October, [facility] [address] [place] [id number] [place] [address] Sep, [facility] [address] [address] Sep, [facility] [address] [place] [id number] [place] [address] Aug, [facility] [address] [address] Aug, [facility] [address] [id number] [place] [address] Aug, [facility] [address] [id number] [place] [address] Aug, [facility] [address] [id number] [place] [address] Aug, [facility] [address] [id number] [place] [address] Aug, [facility] [address] [id number] [place] [address] Aug, [facility] [address] [id number] [place] [address] Aug, [facility] [address] [id number] [place] [address] Aug, [facility] [address] [id number] [place] [address] Aug, [facility] [address] [id number] [place] [address] Aug, [facility] [address] [id number] [place] [address] Aug, [facility] [address] [id number] [place] [address] Aug, [facility] [address] [id number] [place] [address] Aug, [facility] [address] [id number] [place] [address] Jul, 2014 [facility] [address] [id number] [place] [address] Jul, [facility] [address] [id number] [place] [address] Jul, [facility] [address] [id number] [place] [address] Jul, [facility] [address] [id number] [place] [address] Jul, [facility] [address] [id number] [place] [address] Jul, [facility] [address] [id number] [place] [address] Jun, [facility] [address] [id number] [place] [address] Jun, [facility] [address] [id number] [place] [address] Jun, [facility] [address] [id number] [place] [address] Jun, [facility] [address] [id number] [place] [address] May, [facility] [address] [id number] [place] [address] May, [facility] [address] [id number] [place] [address] May, [facility] [address] [id number] [place] [address] May, [facility] [address] [id number] [place] [address] May, [facility] [address] [id number] [place] [address] May, [facility] [address] [id number] [place] [address] May, [facility] [address] [id number] [place] [address] May, [facility] [address] [id number] [place] [address] May, [facility] [address] [id number] [place] [address] May, [facility] [address] [id number] [place] [address] Apr, [facility] [address] [id number] [place] [address] Apr, [facility] [address] [id number] [place] [address] Apr, [facility] [address] [id number] [place] [address] Apr, [facility] [address] [id number] [place] [address] Apr, [facility] [address] [id number] [place] [address] Apr, [facility] [address] [id number] [place] [address] Apr, [facility] [address] [id number] [place] [address] Apr, [facility] [address] [id number] [place] [address] Apr, [facility] [address] [id number] [place] [address] Mar, [facility] [address] [id number] [place] [address] Mar, [facility] [address] [id number] [place] [address] Mar, [facility] [address] [id number] [place] [address] Mar, [facility] [address] [id number] [place] [address] Mar, [facility] [address] [id number] [place] [address] Mar, [facility] [address] [id number] [place] [address] Mar, [facility] [address] [id number] [place] [address] Mar, [facility] [address] [id number] [place] [address] Feb, [facility] [address] [id number] [place] [address] 30 Sep, 2013 [facility] [address] [id number] [place] [address] 24 Feb, 2013 [facility] [address] [id number] [place] [address] 24 Feb, 2013 [facility] [address] [id number] [place] [address] 22 Feb, 2013 [facility] [address] [facility] [id number] [place] [address] 22 Feb, 2013 [facility] [address] [id number] [place] [address] 10 Feb, 2013 [facility] [address] [id number] [place] [address] 10 Feb, 2013 [facility] [address] [id number] [place] [address] Sep, 2013 [facility] [address] [id number] [place] [address] Sep, 2013 [facility] [address] [id number] [place] [address] Feb, 2013 [facility] [address] [id number] [place] [address] Feb, 2013 [facility] [address] [id number] [place] [address] Feb, 2013 [facility] [address] [id number] [place] [address] Feb, 2013 [facility] [address] [id number] [place] [address] Jan, [facility] [address] [id number] [place] [address] Jan, 2013 [facility] [address] [id number] [place] [address] Dec, 2013 [facility] [address] [id number] [place] [address] Dec, 2013 [facility] [address] [id number] [place] [address] Dec, 2013 [facility] [address] [facility] [id number] [place] [address] Dec, 2013 [facility] [address] [facility] [id number] [place] [place] [id number] Dec, 2013 [facility] [address] [facility] [id number] [place] [address] Dec, 2013 [facility] [address] [facility] [id number] [place] [address] Dec, 2013 [facility] [address] [facility] [id number] [place] [address] Dec, 2013 [facility] [address] [id number] [place] [address] Dec, 2013 [facility] [address] [id number] [place] [address] Dec, 2013 [facility] [address] [facility] [id number] [place] [address] Dec, 2013 [facility] [address] [id number] [place] [address] Dec, 2013 [facility] [address] [id number] [place] [address] Dec, 2013 [facility] [address] [id number] [place] [address] Dec, 2013 [facility] [address] [facility] [id number] [place] [address] Dec, 2013 [facility] [address] [facility] [id number] [place] [address] Dec, 2013 [facility] [address] [facility] [id number] [place] [address] Dec, 2013 [facility] [address] [id number] [place] [address] Dec, 2013 [facility] [address] [id number] [place] [address] Dec, [facility] [address] [id number] [place] [address] Nov, [facility] [address] [id number] [place] [address] Nov, [facility] [address] [id number] [place] [address] Nov, [facility] [address] [id number] [place] [address] Nov, [facility] [address] [id number] [place] [address] Nov, [facility] [address] [id number] [place] [address] Nov, [facility] [address] [id number] [place] [address] Nov, [facility] [address] [id number] [place] [address] Nov, [facility] [address] [id number] [place] [address] Nov, [facility] [address] [id number] [place] [address] October, [facility] [address] [id number] [place] [address] October, [facility] [address] [id number] [place] [address] October, [facility] [address] [id number] [place] [address] October, [facility] [address] [id number] [place] [address] October, [facility] [address] [id number] [place] [address] October, [facility] [address] [id number] [place] [address] October, [facility] [address] [id number] [place] [address] October, [facility] [address] [id number] [place] [address] Sep, [facility] [address] [id number] [place] [address] Sep, [facility] [address] [id number] [place] [address] Sep, [facility] [address] [id number] [place] [address] Sep, [facility] [address] [id number] [place] [address] Sep, [facility] [address] [id number] [place] [address] Sep, [facility] [address] [id number] [place] [address] Sep, [facility] [address] [id number] [place] [address] Aug, [facility] [address] [id number] [place] [address] Aug, [facility] [address] [id number] [place] [address] Aug, [facility] [address] [id number] [place] [address] Aug, [facility] [address] [id number] [place] [address] Aug, [facility] [address] [id number] [place] [address] Aug, [facility] [address] [id number] [place] [address] Jul, [facility] [address] [id number] [place] [address] Jul, [facility] [address] [id number] [place] [address] Jul, [facility] [address] [facility] [id number] [place] [address] Jul, [facility] [address] [id number] [place] [address] Jul, [facility] [address] [id number] [place] [address] Jul, [facility] [address] [id number] [place] [address] Jun, [facility] [address] [id number] [place] [address] Jun, [facility] [address] [id number] [place] [address] Jun, [facility] [address] [id number] [place] [address] Jun, [facility] [address] [id number] [place] [address] Jun, [facility] [address] [id number] [place] [address] Jun, [facility] [address] [id number] [place] [address] Jun, [facility] [address] [id number] [place] [address] Jun, [facility] [address] [id number] [place] [address] Jun, [facility] [address] [id number] [place] [address] Jun, [facility] [address] [id number] [place] [address] Jun, [facility] [address] [id number] [place] [address] Jun, [facility] [address] [id number] [place] [address] Jun, [facility] [address] [id number] [place] [address] 30 May, 2012 [facility] [address] [id number] [place] [address] May, [facility] [address] [id number] [place] [address] May, [facility] [address] [id number] [place] [address] May, [facility] [address] [id number] [place] [address] May, [facility] [address] [id number] [place] [address] 14 May, 2013 [facility] [address] [id number] [place] [address] 14 May, 2013 [facility] [address] [id number] [place] [address] May, [facility] [address] [id number] [place] [address] May, [facility] [address] [id number] [place] [address] May, [facility] [address] [id number] [place] [address] May, [facility] [address] [id number] [place] [address] May, [facility] [address] [id number] [place] [address] May, [facility] [address] [id number] [place] [address] 09 May, 2013 [facility] [address] [id number] [place] [address] May, [facility] [address] [id number] [place] [address] 08 May, 2013 [facility] [address] [id number] [place] [address] 07 May, 2013 [facility] [address] [id number] [place] [address] 06 May, 2012 [facility] [address] [id number] [place] [address] May, 2012 [facility] [address] [id number] [place] [address] May, 2012 [facility] [address] [id number] [place] [address] May, 2012 [facility] [address] [id number] [place] [address] Apr, [facility] [address] [id number] [place] [address] Apr, [facility] [address] [id number] [place] [address] Apr, [facility] [id number] [place] [address] Apr, [facility] [address] [id number] [place] [address] 08 Mar, 2013 [facility] [address] [id number] [place] [address] 23 Feb, 2012 [facility] [address] [id number] [place] [address] 16 Feb, 2012 [facility] [address] [id number] [place] [address] 13 Feb, 2012 [facility] [address] [id number] [place] [address] 10 Feb, 2012 [facility] [address] [id number] [place] [address] 09 Feb, 2012 [facility] [address] [id number] [place] [address] 09 Feb, 2012 [facility] [address] [id number] [place] [address] Jan, [facility] [address] [id number] [place] [address] Jan, [facility] [address] [facility] [id number] [place] [address] Jan, [facility] [address] [facility] [id number] [place] [address] Dec, [facility] [address] [id number] [place] [address] Dec, [facility] [address] [facility] [id number] [place] [address] Dec, [facility] [address] [facility] [id number] [place] [address] Dec, [facility] [address] [id number] [place] [address] Dec, [facility] [address] [id number] [place] [address] Nov, [facility] [address] [id number] [place] [address] Nov, [facility] [address] [id number] [place] [address] Nov, [facility] [address] [id number] [place] [address] Nov, [facility] [address] [id number] [place] [address] Nov, [facility] [address] [id number] [place] [address] Nov, [facility] [address] [facility] [id number] [place] [address] 07 Nov, 2012 [facility] [address] [id number] [place] [address] 06 Nov, 2012 [facility] [address] [id number] [place] [address] 05 Nov, 2012 [facility] [address] [id number] [place] [address] Nov, [facility] [address] [id number] [place] [address] October, [facility] [address] [id number] [place] [address] October, [facility] [address] [id number] [place] [address] Sep, [facility] [address] [id number] [place] [address] Sep, [facility] [address] [id number] [place] [address] Sep, [facility] [address] [id number] [place] [address] Sep, [facility] [address] [id number] [place] [address] Sep, [facility] [id number] [place] [address] Aug, [facility] [address] [id number] [place] [address] Aug, [facility] [address] [id number] [place] [address] Jul, [facility] [address] [id number] [place] [address] Jul, [facility] [address] [id number] [place] [address] Jun, [facility] [address] [id number] [place] [address] Jun, [facility] [address] [id number] [place] [address] May, [facility] [id number] [place] [address] May, [facility] [address] [id number] [place] [address] May, [facility] [address] [id number] [place] [address] May, [facility] [address] [id number] [place] [address] Apr, [facility] [address] [id number] [place] [address] Apr, [facility] [address] [id number] [place] [address] Apr, [facility] [address] [id number] [place] [address] Apr, [facility] [address] [id number] [place] [address] Apr, [facility] [address] [id number] [place] [address] Apr, [facility] [address] [id number] [place] [address] Apr, [facility] [address] [id number] [place] [address] Apr, [facility] [address] [id number] [place] [address] Apr, [facility] [address] [id number] [place] [address] Mar, [facility] [address] [id number] [place] [address] Mar, [facility] [address] [id number] [place] [address] Feb, [facility] [address] [id number] [place] [address] Jan, [facility] [address] [id number] [place] [address] Jan, [facility] [address] [id number] [place] [address] Dec, [facility] [address] [id number] [place] [address] Nov, [facility] [address] [id number] [place] [address] Nov, [facility] [address] [id number] [place] [address] October, [facility] [address] [id number] [place] [address] October, [facility] [address] [id number] [place] [address] Sep, [facility] [address] [id number] [place] [address] Sep, [facility] [address] [id number] [place] [address] May, [facility] [address] [id number] [place] [address] Apr, [facility] [address] [id number] [place] [address] Apr, [facility] [address] [id number] [place] [address] Apr, [facility] [address] [id number] [place] [address] 15 Apr, 2011 [facility] [address] [id number] [place] [address] 15 Apr, 2011 [facility] [address] [id number] [place] [address] Apr, [facility] [address] [id number] [place] [address] Apr, [facility] [address] [id number] [place] [address] Apr, [facility] [id number] [place] [address] Mar, [facility] [address] [id number] [place] [address] Mar, [facility] [address] [id number] [place] [address] Mar, [facility] [address] [facility] [id number] [place] [address] Mar[facility] [address] [id number] [place] [address] Mar, [facility] [address] [id number] [place] [address] Mar, IMMUNIZATIONS No Known Immunizations SOCIAL HISTORY [...] Stomach surgeryx3 Hospitalization History Mental floor at [facility]
--- OUTSIDE RECORDS SUMMARY | 2019-12-24 19:47 | XMS REPORT ---
Author Author Deann Trey Doctor Organization [facility] Address Unknown Phone Unavailable Care Team Providers Care Account General Manager Name Role Phone Migration, Doctor Unavailable Unavailable PROBLEMS Type Condition ICD9-CM Code DVV21-GG Code Onset Dates Condition S tatus SNOMED Code Problem Nondependent 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 Ac tive 420642970 Problem Other chronic pain G89.29 Active 1 87766912 Problem Unspecified epilepsy without mention of intractable ep ilepsy G40.909 Active 05395672 Problem Hyperlipidemia, unspecified E78.5 Ac tive 18252164 Problem Hypertension I10 Active 8827173 3 Problem Esophageal reflux K21.9 Active 23 5415640 Problem Rheumatoid arthritis M06.9 Active 41792968 Problem Cough R05 Active 15356821 Problem Acquired hypothyroidism E03.9 Active 069248918 Problem Unspecified open-angle glaucoma, stage unspecified H40.10X0 Feb, Active 46262326 Problem Presbyopia H52.4 Active 29574335 Problem Insomnia G47.00 Active 417652542 Problem Arthralgia M25.50 Active 86402097 Problem Thyroid nodule E04.1 Active 26460 5005 Problem Anxiety disorder, unspecified F41.9 Active 236644548 Problem Chronic tension-type headache, intractable G44.221 Active 787175677 Problem Neuropathy G62.9 Active 913448878 Problem Goiter E04.9 Active 7142421 Problem Multinodular goiter E04.2 Active 583120800 Problem Carpal tunnel syndrome of left wrist G56.02 Active 553320249964521 Problem Chronic obstructive pulmonary disease, unspecified COPD ty pe J44.9 Active 07430232 Problem BMI 40.0-44.9, adult Z68.41 Active 260658083 Problem Seasonal allergic rhinitis due to pollen J30.1 Active 13502621 Problem Depression F32.9 Active 75452914 Problem Essential hypertension I10 Active 25233968 Problem Depressive disorder F32.9 Active 59033558 Problem Right-sided low back pain without sciatica M54.5 Active 838944835 Problem Reactive airway disease with out complication, unspecified asthma severity, unspecified whether persistent J45.909 Active 278637201679 Problem Urge incontinence of urine N39.41 Act chen 45901378 Problem Abnormal laboratory test R89.9 Activ e 593263468 Problem COPD with exacerbation J44.1 Active 836021662 ALLERGIES No Information ENCOUNTERS Encounter Location Date Diagnosis [place] [address] [address] Apr, Bronchitis J40 [place] [address] [address] 04 Apr, 2019 Acute gastritis without hemorrhage, unsp ecified gastritis type K29.00 [place] [address] [address] Mar, [place] [address] [address] Feb, [place] [address] [address] Feb, Mass of right side of neck R22.1 and Mul tinodular goiter E04.2 [facility] [place] [address] [address] Jan, Bronchitis J40 [place] [address] [address] October, Acquired hypothyroidism E03.9 [place] [address] [address] October, Acute gastritis without hemorrhage, unsp ecified gastritis type K29.00 ; Epigastric pain R10.13 ; Essential hypertension I10 ; Screening for colon cancer Z12.11 and BMI 40.0-44.9, adult Z68.41 [place] [address] [address] October, [facility] [address] [place] [id number] [address] [place] [address] October, Chest pain R07.9 and Morbid obesity E66.01 [facility] [address] [place] [id number] [place] [address] Sep, Generalized abdominal pain R 10.84 ; Morbid obesity E66.01 ; Non-intractable vomiting with nausea, unspecified vomiting type R11.2 and Seasonal allergic rhinitis due to pollen J30.1 [facility] [address] [place] [id number] [address] [place] [address] 28 Jul, 2018 COPD with exacerbation J44.1 ; Viral upper respiratory tract infection J06.9 and Morbid obesity E66.01 [facility] [address] [address] Jun, Viral upper respiratory trac t infection J06.9 [place] [address] [address] Apr, Abnormal laboratory test R89.9 [place] [address] [address] Apr, Abnormal laboratory test R89.9 [place] [address] [address] Apr, Abnormal laboratory test R89.9 [place] [address] [address] Apr, [place] [address] [address] Apr, [place] [address] [address] Apr, Nonintractable episodic headache, unspec ified headache type R51 ; Urge incontinence of urine N39.41 ; BMI 40.0-44.9, adult Z68.41 ; Myalgia M79.10 and Acute cystitis without hematuria N30.00 [place] [address] [address] Mar, Nasal congestion R09.81 ; Low back pain M54.5 ; Reactive airway disease without complication, unspecified asthma severity, unspecified whether persistent J45.909 ; Other chronic pain G89.29 ; Acute cystitis with hematuria N30.01 and BMI 40.0-44.9, adult Z68.41 [place] [address] [place] [id number] Mar, Acute cystitis with hematuria N30.01 [facility] [address] [facility] [id number] [place] [address] Mar, BMI 40.0-44.9, adult Z68.41 ; Acute cystitis with hematuria N30.01 ; Acute bilateral low back pain without sciatica M54.5 and Nausea R11.0 [place] [address] [address] Mar, Hypertension I10 ; Acquired hypothyroidi sm E03.9 ; Esophageal reflux K21.9 ; Chronic obstructive pulmonary disease, unspecified COPD type J44.9 and BMI 40.0-44.9, adult Z68.[address] [address] Mar, Hypertension I10 [place] [address] [address] Nov, Hyperlipidemia, unspecified E78.[address] [address] October, Chest pain, unspecified type R07.9 and A cquired hypothyroidism E03.[address] [address] October, Chest pain, unspecified type R07.9 ; Fam demetrius history of coronary artery disease Z82.49 ; Carpal tunnel syndrome of left wrist G56.02 ; Hypertension I10 ; Esophageal reflux K21.9 ; Arthralgia M25.50 ; Acquired hypothyroidism E03.9 ; Cough R05 ; Nausea R11.0 ; Weight gain R63.5 and BMI 45.0-49.9, adult Z68.[address] [address] Jun, Acquired hypothyroidism E03.9 and Cough R05 [place] [address] [address] May, [place] [address] [address] Feb, Tarsal tunnel syndrome of both lower ext remities G57.53 and Neuropathy G62.9 [place] [address] [address] Dec, Pleuritis R09.1 [place] [address] [address] Nov, [place] [address] [address] October, Arthralgia, unspecified joint M25.50 and Allergy, initial encounter T78.40XA [place] [address] [address] October, [place] [address] [address] October, Acute recurrent maxillary sinusitis J01. 01 and Arthralgia M25.50 [place] [address] [address] Sep, Pharyngitis due to other organism J02.8 [place] [address] [address] Aug, Acute nasopharyngitis J00 [place] [address] [address] Aug, Multinodular goiter E04.2 [place] [address] [address] Aug, Thyroid nodule E04.1 [place] [address] [address] 17 Jul, 2016 Tarsal tunnel syndrome of both lower ext remities G57.53 [place] [address] [address] Jun, Pneumonia due to infectious organism, un specified laterality, unspecified part of lung J18.9 [place] [address] [place] [id number] Jun, Bronchospasm with bronchitis, acute J20. 9 [place] [address] [address] May, Acute non-recurrent frontal sinusitis J0 1.10 [place] [address] [address] May, Flat foot [pes planus] (acquired), left foot M21.42 ; Flat foot [pes planus] (acquired), right foot M21.41 and Neuropathy G62.9 [place] [address] [address] Apr, Chronic tension-type headache, intractab le G44.221 ; Right lower quadrant abdominal pain R10.31 ; Cervicalgia M54.2 ; Acute gastritis without hemorrhage, unspecified gastritis type K29.00 and Hypertension I10 [place] [address] [address] Mar, Depression F32.9 and Anxiety disorder, u nspecified F41.9 [place] [address] [address] Feb, Depressive disorder F32.9 and Anxiety di sorder, unspecified F41.9 [place] [address] [address] Jan, Dysuria R30.0 ; Lower abdominal pain R10 .30 ; Acute bilateral low back pain without sciatica M54.5 ; Nausea and vomiting, unspecified intactability, vomiting of unspecified type R11.2 ; Pain in right foot M79.671 and Pain of left foot M79.672 [place] [address] [address] Dec, Urinary tract infection, site not specif ied N39.0 [facility] [address] [address] Dec, [facility] [address] [address] Nov, [facility] [address] [address] Nov, Dysuria R30.0 [place] [address] [address] Nov, Dysuria R30.0 and Acute cystitis with he maturia N30.01 [place] [address] [address] October, Nausea R11.0 [place] [address] [address] October, Thyroid nodule E04.1 ; Carpal tunnel syn drome, left upper limb G56.02 ; Carpal tunnel syndrome, right upper limb G56.01 and Constipation, unspecified constipation type K59.00 [place] [address] [address] October, [place] [address] [address] October, Thyroid nodule E04.1 [place] [address] [address] October, Cold thyroid nodule E04.1 [place] [address] [address] October, [facility] [address] [address] Sep, Thyroid nodule E04.1 [place] [address] [address] Sep, Thyroid nodule E04.1 [facility] [address] [address] Sep, Thyroid nodule E04.1 ; Hypertension I10 ; Esophageal reflux K21.9 and Hyperlipidemia, unspecified E78.5 [place] [address] [address] 14 Aug, 2015 Other chronic pain G89.29 ; Sinusitis J3 2.9 and Hypertension I10 [place] [address] [address] 29 Jul, 2015 [place] [address] [address] 15 Jul, [address] [address] 10 Jul, 2015 Insomnia G47.00 and Arthralgia M25.[address] [address] 10 Jul, 2015 Depressive disorder F32.9 and Anxiety di sorder, unspecified F41.[address] [address] May, Right-sided low back pain without sciati ca M54.5 and Depression F32.[address] [address] Apr, Hematuria R31.[address] [address] Mar, Other chronic pain G89.[address] [address] Mar, Other chronic pain G89.29 [place] [address] [address] Feb, [place] [address] 22 Feb, 2015 Other chronic pain 338.29 ; Dysuria 788. 1 ; UTI (urinary tract infection) 599.0 ; Insomnia 780.52 ; Hot flashes 627.2 and Hypertension 401.[address] [address] Feb, Dysuria 788.1 [facility] [address] [address] Feb, [facility] [address] [address] Jan, [facility] [address] [address] Jan, [facility] [address] [address] Jan, Fibromyalgia 729.1 ; Hypertension 401.9 ; Dysthymia 300.4 and Hot flashes 627.2 [facility] [address] [address] Dec, [facility] [address] [address] Dec, [facility] [address] [address] Dec, [facility] [address] [address] Nov, Other chronic pain 338.29 [facility] [address] [address] October, [facility] [address] [address] October, [facility] [address] [address] Sep, [facility] [address] [address] Sep, [facility] [address] [address] Aug, [facility] [address] [address] Aug, [facility] [address] [address] Aug, [facility] [address] [id number] [place] [address] Aug, [facility] [address] [id number] [place] [address] Aug, [facility] [address] [id number] [place] [address] Aug, [facility] [address] [id number] [place] [address] Aug, [facility] [address] [id number] [place] [address] Aug, [facility] [address] [id number] [place] [address] Aug, [facility] [address] [id number] [place] [address] Aug, [facility] [address] [id number] [place] [address] Aug, [facility] [address] [id number] [place] [address] Aug, [facility] [address] [id number] [place] [address] Aug, [facility] [address] [id number] [place] [address] Aug, [facility] [address] [id number] [place] [address] Jul, [facility] [address] [id number] [place] [address] Jul, [facility] [address] [id number] [place] [address] Jul, [facility] [address] [id number] [place] [address] Jul, [facility] [address] [id number] [place] [address] Jul, [facility] [address] [id number] [place] [address] Jul, [facility] [address] [id number] [place] [address] Jun, [facility] [address] [id number] [place] [address] Jun, [facility] [address] [id number] [place] [address] Jun, [facility] [address] [id number] [place] [address] Jun, [facility] [address] [id number] [place] [address] May, [facility] [address] [id number] [place] [address] May, [facility] [address] [id number] [place] [address] May, [facility] [address] [id number] [place] [address] May, [facility] [address] [id number] [place] [address] May, [facility] [address] [id number] [place] [address] May, [facility] [address] [id number] [place] [address] May, [facility] [address] [id number] [place] [address] May, [facility] [address] [id number] [place] [address] May, [facility] [address] [id number] [place] [address] May, [facility] [address] [id number] [place] [address] Apr, [facility] [address] [id number] [place] [address] Apr, [facility] [address] [id number] [place] [address] Apr, [facility] [address] [id number] [place] [address] Apr, [facility] [address] [id number] [place] [address] Apr, [facility] [address] [id number] [place] [address] Apr, [facility] [address] [id number] [place] [address] Apr, [facility] [address] [id number] [place] [address] Apr, [facility] [address] [id number] [place] [address] Apr, [facility] [address] [id number] [place] [address] Mar, [facility] [address] [id number] [place] [address] Mar, [facility] [address] [id number] [place] [address] Mar, [facility] [address] [id number] [place] [address] Mar, [facility] [address] [id number] [place] [address] Mar, [facility] [address] [id number] [place] [address] Mar, [facility] [address] [id number] [place] [address] Mar, [facility] [address] [id number] [place] [address] Mar, [facility] [address] [id number] [place] [address] Feb, [facility] [address] [id number] [place] [address] 30 Feb, 2014 [facility] [address] [id number] [place] [address] 24 Feb, 2013 [facility] [address] [id number] [place] [address] 24 Feb, 2013 [facility] [address] [id number] [place] [address] 22 Feb, 2013 [facility] [address] [id number] [place] [address] 22 Feb, 2013 [facility] [address] [facility] [id number] [place] [address] 10 Feb, 2013 [facility] [address] [id number] [place] [address] Feb, 2013 [facility] [address] [id number] [place] [address] Feb, 2013 [facility] [address] [id number] [place] [address] Feb, 2013 [facility] [address] [id number] [place] [address] Feb, 2013 [facility] [address] [id number] [place] [address] Feb, 2013 [facility] [address] [id number] [place] [address] Feb, 2013 [facility] [address] [id number] [place] [address] Feb, 2013 [facility] [address] [id number] [place] [address] Jan, 2013 [facility] [address] [id number] [place] [address] Jan, [facility] [address] [id number] [place] [address] Dec, [facility] [address] [id number] [place] [address] Dec, [facility] [address] [id number] [place] [address] Dec, 2013 [facility] [address] [facility] [id number] [place] [address] Dec, 2013 [facility] [address] [id number] [facility] [place] [id number] Dec, 2013 [facility] [address] [facility] [id number] [facility] [place] [address] 15 Dec, 2013 [facility] [address] [facility] [id number] [place] [address] Dec, 2013 [facility] [address] [facility] [id number] [place] [address] Dec, 2013 [facility] [address] [facility] [id number] [place] [address] Dec, 2013 [facility] [address] [id number] [place] [address] Dec, 2013 [facility] [address] [id number] [place] [address] Dec, 2013 [facility] [address] [facility] [id number] [place] [address] Dec, 2013 [facility] [address] [id number] [place] [address] Dec, 2013 [facility] [address] [id number] [place] [address] Dec, 2013 [facility] [address] [id number] [place] [address] Dec, 2013 [facility] [address] [facility] [id number] [place] [address] Dec, 2013 [facility] [address] [facility] [id number] [place] [address] Dec, 2013 [facility] [address] [facility] [id number] [place] [address] Dec, 2013 [facility] [address] [id number] [place] [address] Dec, 2013 [facility] [address] [id number] [place] [address] Nov, [facility] [address] [id number] [place] [address] Nov, [facility] [address] [id number] [place] [address] Nov, [facility] [address] [id number] [place] [address] Nov, [facility] [address] [id number] [place] [address] Nov, [facility] [address] [facility] [id number] [place] [address] Nov, [facility] [address] [id number] [place] [address] Nov, [facility] [address] [id number] [place] [address] Nov, [facility] [address] [id number] [place] [address] Nov, [facility] [address] [id number] [place] [address] October, [facility] [address] [id number] [place] [address] October, [facility] [address] [id number] [place] [address] October, [facility] [address] [id number] [place] [address] October, [facility] [address] [id number] [place] [address] October, [facility] [address] [id number] [place] [address] October, [facility] [address] [id number] [place] [address] October, [facility] [address] [id number] [place] [address] October, [facility] [address] [id number] [place] [address] Sep, [facility] [address] [id number] [place] [address] Sep, [facility] [address] [id number] [place] [address] Sep, [facility] [address] [id number] [place] [address] Sep, [facility] [address] [id number] [place] [address] Sep, [facility] [address] [id number] [place] [address] Sep, [facility] [address] [id number] [place] [address] Sep, [facility] [address] [id number] [place] [address] Aug, [facility] [address] [id number] [place] [address] Aug, [facility] [address] [id number] [place] [address] Aug, [facility] [address] [id number] [place] [address] Aug, [facility] [address] [id number] [place] [address] Aug, [facility] [address] [id number] [place] [address] Aug, [facility] [address] [id number] [place] [address] Jul, [facility] [address] [id number] [place] [address] Jul, [facility] [address] [id number] [place] [address] Jul, [facility] [address] [id number] [place] [address] Jul, [facility] [address] [id number] [place] [address] Jul, [facility] [address] [id number] [place] [address] Jul, [facility] [address] [id number] [place] [address] Jun, [facility] [address] [id number] [place] [address] Jun, [facility] [address] [id number] [place] [address] Jun, [facility] [address] [id number] [place] [address] Jun, [facility] [address] [id number] [place] [address] Jun, [facility] [address] [id number] [place] [address] Jun, [facility] [address] [id number] [place] [address] Jun, [facility] [address] [id number] [place] [address] Jun, [facility] [address] [id number] [place] [address] Jun, [facility] [address] [id number] [place] [address] Jun, [facility] [address] [id number] [place] [address] Jun, [facility] [address] [id number] [place] [address] Jun, [facility] [address] [id number] [place] [address] Jun, [facility] [address] [id number] [place] [address] May, [facility] [address] [id number] [place] [address] 30 May, 2013 [facility] [address] [id number] [place] [address] 30 May, 2013 [facility] [address] [id number] [place] [address] 30 May, 2013 [facility] [address] [id number] [place] [address] 26 May, 2012 [facility] [address] [id number] [place] [address] 14 May, 2013 [facility] [address] [id number] [place] [address] 14 May, 2013 [facility] [address] [id number] [place] [address] May, [facility] [address] [id number] [place] [address] 12 May, 2013 [facility] [address] [id number] [place] [address] May, [facility] [address] [id number] [place] [address] May, [facility] [address] [id number] [place] [address] May, [facility] [address] [id number] [place] [address] May, [facility] [address] [id number] [place] [address] May, [facility] [address] [id number] [place] [address] May, [facility] [address] [id number] [place] [address] 08 May, 2013 [facility] [address] [id number] [place] [address] 07 May, 2013 [facility] [address] [id number] [place] [address] 06 May, 2013 [facility] [address] [id number] [place] [address] May, 2012 [facility] [address] [id number] [place] [address] May, 2012 [facility] [address] [id number] [place] [address] May, [facility] [address] [id number] [place] [address] Apr, [facility] [address] [id number] [place] [address] Apr, [facility] [address] [id number] [place] [address] Apr, [facility] [address] [id number] [place] [address] Apr, [facility] [address] [id number] [place] [address] 08 Mar, 2013 [facility] [address] [id number] [place] [address] 23 Feb, 2012 [facility] [address] [id number] [place] [address] 16 Feb, 2013 [facility] [address] [id number] [place] [address] 13 Feb, 2012 [facility] [address] [id number] [place] [address] 10 Feb, 2012 [facility] [address] [id number] [place] [address] 09 Feb, 2012 [facility] [address] [id number] [place] [address] 09 Feb, 2012 [facility] [address] [id number] [place] [address] Jan, [facility] [address] [id number] [place] [address] Jan, [facility] [address] [id number] [facility] [place] [address] Jan, [facility] [address] [id number] [facility] [place] [address] Dec, [facility] [address] [facility] [id number] [facility] [place] [address] Dec, [facility] [address] [id number] [facility] [place] [address] Dec, [facility] [address] [id number] [facility] [place] [address] Dec, [facility] [address] [facility] [id number] [facility] [place] [address] Dec, [facility] [address] [id number] [place] [address] Nov, [facility] [address] [id number] [place] [address] Nov, [facility] [address] [id number] [place] [address] Nov, [facility] [address] [id number] [place] [address] Nov, [facility] [address] [id number] [place] [address] Nov, [facility] [address] [id number] [place] [address] Nov, [facility] [address] [id number] [place] [address] Nov, [facility] [address] [facility] [id number] [place] [address] Nov, [facility] [address] [id number] [place] [address] 05 Nov, 2012 [facility] [address] [id number] [place] [address] Nov, [facility] [address] [id number] [place] [address] October, [facility] [address] [id number] [place] [address] October, [facility] [address] [id number] [place] [address] Sep, [facility] [address] [id number] [place] [address] Sep, [facility] [address] [id number] [place] [address] Sep, [facility] [address] [id number] [place] [address] Sep, [facility] [address] [id number] [place] [address] Sep, [facility] [address] [id number] [place] [address] Aug, [facility] [address] [id number] [place] [address] Aug, [facility] [address] [id number] [place] [address] Jul, [facility] [address] [id number] [place] [address] Jul, [facility] [address] [id number] [place] [address] Jun, [facility] [address] [id number] [place] [address] Jun, [facility] [address] [id number] [place] [address] May, [facility] [address] [id number] [place] [address] May, [facility] [address] [id number] [place] [address] May, [facility] [address] [id number] [place] [address] May, [facility] [address] [id number] [place] [address] Apr, [facility] [address] [id number] [place] [address] Apr, [facility] [address] [id number] [place] [address] Apr, [facility] [address] [id number] [place] [address] Apr, [facility] [address] [id number] [place] [address] Apr, [facility] [address] [id number] [place] [address] Apr, [facility] [address] [id number] [place] [address] Apr, [facility] [address] [id number] [place] [address] Apr, [facility] [address] [id number] [place] [address] Apr, [facility] [address] [id number] [place] [address] 15 Mar, 2012 [facility] [address] [id number] [place] [address] Mar, [facility] [address] [id number] [place] [address] Feb, [facility] [address] [id number] [place] [address] Jan, [facility] [address] [id number] [place] [address] Jan, [facility] [address] [id number] [place] [address] Dec, [facility] [address] [id number] [place] [address] Nov, [facility] [address] [id number] [place] [address] Nov, [facility] [address] [id number] [place] [address] October, [facility] [address] [id number] [place] [address] October, [facility] [address] [id number] [place] [address] Sep, [facility] [address] [id number] [place] [address] Sep, [facility] [address] [id number] [place] [address] May, [facility] [address] [id number] [place] [address] Apr, [facility] [address] [id number] [place] [address] Apr, [facility] [address] [id number] [place] [address] 15 Apr, 2011 [facility] [address] [id number] [place] [address] 15 Apr, 2011 [facility] [address] [id number] [place] [address] Apr, [facility] [address] [id number] [place] [address] Apr, [facility] [address] [id number] [place] [address] Apr, [facility] [address] [id number] [place] [address] Apr, [facility] [address] [id number] [place] [address] Mar, [facility] [id number] [place] [address] Mar, [facility] [address] [id number] [place] [address] Mar, [facility] [address] [id number] [place] [address] Mar, [facility] [address] [facility] [id number] [place] [address] Mar, [facility] [address] [facility] [id number] [place] [address] Mar, IMMUNIZATIONS No Known Immunizations SOCIAL HISTORY [...]
--- OUTSIDE RECORDS SUMMARY | 2019-12-24 19:48 | XMS REPORT ---
Author Author Deann Trey Doctor Organization [facility] Address Unknown Phone Unavailable Care Team Providers Care Coil Builder Name Role Phone Migration, Doctor Unavailable Unavailable PROBLEMS Type Condition ICD9-CM Code VON42-EG Code Onset Dates Condition S tatus SNOMED Code Problem Nondependent 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 Ac tive 470995625 Problem Other chronic pain G89.29 Active 1 55076620 Problem Unspecified epilepsy without mention of intractable ep ilepsy G40.909 Active 14299738 Problem Hyperlipidemia, unspecified E78.5 Ac tive 79223203 Problem Hypertension I10 Active 2158880 3 Problem Esophageal reflux K21.9 Active 23 5827222 Problem Rheumatoid arthritis M06.9 Active 29155384 Problem Cough R05 Active 00632485 Problem Acquired hypothyroidism E03.9 Active 973041449 Problem Unspecified open-angle glaucoma, stage unspecified H40.10X0 Feb, Active 17113207 Problem Presbyopia H52.4 Active 98108972 Problem Insomnia G47.00 Active 118079043 Problem Arthralgia M25.50 Active 67641130 Problem Thyroid nodule E04.1 Active 54718 5005 Problem Anxiety disorder, unspecified F41.9 Active 606585507 Problem Chronic tension-type headache, intractable G44.221 Active 452147348 Problem Neuropathy G62.9 Active 551039148 Problem Goiter E04.9 Active 3902469 Problem Multinodular goiter E04.2 Active 589787096 Problem Carpal tunnel syndrome of left wrist G56.02 Active 961717852206815 Problem Chronic obstructive pulmonary disease, unspecified COPD ty pe J44.9 Active 85864866 Problem BMI 40.0-44.9, adult Z68.41 Active 501741848 Problem Seasonal allergic rhinitis due to pollen J30.1 Active 99485696 Problem Depression F32.9 Active 61080635 Problem Essential hypertension I10 Active 78536751 Problem Depressive disorder F32.9 Active 36538830 Problem Right-sided low back pain without sciatica M54.5 Active 845482844 Problem Reactive airway disease with out complication, unspecified asthma severity, unspecified whether persistent J45.909 Active 609809894687 Problem Urge incontinence of urine N39.41 Act chen 83209061 Problem Abnormal laboratory test R89.9 Activ e 151483079 Problem COPD with exacerbation J44.1 Active 407953158 ALLERGIES No Information ENCOUNTERS Encounter Location Date Diagnosis [place] [address] [address] Apr, Bronchitis J40 [place] [address] [address] 04 Apr, 2019 Acute gastritis without hemorrhage, unsp ecified gastritis type K29.00 [place] [address] [address] Mar, [place] [address] [address] Feb, [place] [address] [address] Feb, Mass of right side of neck R22.1 and Mul tinodular goiter E04.2 [facility] [place] [address] [address] Jan, Bronchitis J40 [place] [address] [address] October, Acquired hypothyroidism E03.9 [place] [address] [address] October, Acute gastritis without hemorrhage, unsp ecified gastritis type K29.00 ; Epigastric pain R10.13 ; Essential hypertension I10 ; Screening for colon cancer Z12.11 and BMI 40.0-44.9, adult Z68.41 [place] [address] [address] October, [facility] [address] [place] [id number] [address] [place] [address] October, Chest pain R07.9 and Morbid obesity E66.01 [facility] [address] [place] [id number] [address] [place] [address] Sep, Generalized abdominal pain R 10.84 ; Morbid obesity E66.01 ; Non-intractable vomiting with nausea, unspecified vomiting type R11.2 and Seasonal allergic rhinitis due to pollen J30.1 [facility] [address] [place] [id number] [address] [place] [address] 28 Jul, 2018 COPD with exacerbation J44.1 ; Viral upper respiratory tract infection J06.9 and Morbid obesity E66.01 [facility] IN [facility] [address] [address] Jun, Viral upper respiratory trac t infection J06.9 [place] [address] [address] Apr, Abnormal laboratory test R89.9 [place] [address] [address] Apr, Abnormal laboratory test R89.9 [place] [address] [address] Apr, Abnormal laboratory test R89.9 [place] [address] [address] Apr, [place] [address] [address] Apr, [place] [address] [address] Apr, Nonintractable episodic headache, unspec ified headache type R51 ; Urge incontinence of urine N39.41 ; BMI 40.0-44.9, adult Z68.41 ; Myalgia M79.10 and Acute cystitis without hematuria N30.00 [place] [address] [address] Mar, Nasal congestion R09.81 ; Low back pain M54.5 ; Reactive airway disease without complication, unspecified asthma severity, unspecified whether persistent J45.909 ; Other chronic pain G89.29 ; Acute cystitis with hematuria N30.01 and BMI 40.0-44.9, adult Z68.41 [place] [address] [place] [id number] Mar, Acute cystitis with hematuria N30.01 [facility] IN [facility] [address] [facility] [id number] [address] [place] [address] Mar, BMI 40.0-44.9, adult Z68.41 ; Acute cystitis with hematuria N30.01 ; Acute bilateral low back pain without sciatica M54.5 and Nausea R11.0 [place] [address] [address] Mar, Hypertension I10 ; Acquired hypothyroidi sm E03.9 ; Esophageal reflux K21.9 ; Chronic obstructive pulmonary disease, unspecified COPD type J44.9 and BMI 40.0-44.9, adult Z68.[address] [address] Mar, Hypertension I10 [place] [address] [address] Nov, Hyperlipidemia, unspecified E78.[address] [address] October, Chest pain, unspecified type R07.9 and A cquired hypothyroidism E03.[address] [address] October, Chest pain, unspecified type R07.9 ; Fam demetrius history of coronary artery disease Z82.49 ; Carpal tunnel syndrome of left wrist G56.02 ; Hypertension I10 ; Esophageal reflux K21.9 ; Arthralgia M25.50 ; Acquired hypothyroidism E03.9 ; Cough R05 ; Nausea R11.0 ; Weight gain R63.5 and BMI 45.0-49.9, adult Z68.[address] [address] Jun, Acquired hypothyroidism E03.9 and Cough R05 [place] [address] [address] May, [place] [address] [address] Feb, Tarsal tunnel syndrome of both lower ext remities G57.53 and Neuropathy G62.9 [place] [address] [address] Dec, Pleuritis R09.1 [place] [address] [address] Nov, [place] [address] [address] October, Arthralgia, unspecified joint M25.50 and Allergy, initial encounter T78.40XA [place] [address] [address] October, [place] [address] [address] October, Acute recurrent maxillary sinusitis J01. 01 and Arthralgia M25.50 [place] [address] [address] Sep, Pharyngitis due to other organism J02.8 [place] [address] [address] Aug, Acute nasopharyngitis J00 [place] [address] [address] Aug, Multinodular goiter E04.2 [place] [address] [address] Aug, Thyroid nodule E04.1 [place] [address] [address] 17 Jul, 2016 Tarsal tunnel syndrome of both lower ext remities G57.53 [place] [address] [address] Jun, Pneumonia due to infectious organism, un specified laterality, unspecified part of lung J18.9 [place] [address] [place] [id number] Jun, Bronchospasm with bronchitis, acute J20. 9 [place] [address] [address] May, Acute non-recurrent frontal sinusitis J0 1.10 [place] [address] [address] May, Flat foot [pes planus] (acquired), left foot M21.42 ; Flat foot [pes planus] (acquired), right foot M21.41 and Neuropathy G62.9 [place] [address] [address] Apr, Chronic tension-type headache, intractab le G44.221 ; Right lower quadrant abdominal pain R10.31 ; Cervicalgia M54.2 ; Acute gastritis without hemorrhage, unspecified gastritis type K29.00 and Hypertension I10 [place] [address] [address] Mar, Depression F32.9 and Anxiety disorder, u nspecified F41.9 [place] [address] [address] Feb, Depressive disorder F32.9 and Anxiety di sorder, unspecified F41.9 [place] [address] [address] Jan, Dysuria R30.0 ; Lower abdominal pain R10 .30 ; Acute bilateral low back pain without sciatica M54.5 ; Nausea and vomiting, unspecified intactability, vomiting of unspecified type R11.2 ; Pain in right foot M79.671 and Pain of left foot M79.672 [place] [address] [address] Dec, Urinary tract infection, site not specif ied N39.0 [facility] [address] [address] Dec, [facility] [address] [address] Nov, [facility] [address] [address] Nov, Dysuria R30.0 [place] [address] [address] Nov, Dysuria R30.0 and Acute cystitis with he maturia N30.01 [place] [address] [address] October, Nausea R11.0 [place] [address] [address] October, Thyroid nodule E04.1 ; Carpal tunnel syn drome, left upper limb G56.02 ; Carpal tunnel syndrome, right upper limb G56.01 and Constipation, unspecified constipation type K59.00 [place] [address] [address] October, [place] [address] [address] October, Thyroid nodule E04.1 [place] [address] [address] October, Cold thyroid nodule E04.1 [place] [address] [address] October, [facility] [address] [address] Sep, Thyroid nodule E04.1 [place] [address] [address] Sep, Thyroid nodule E04.1 [facility] [address] [address] Sep, Thyroid nodule E04.1 ; Hypertension I10 ; Esophageal reflux K21.9 and Hyperlipidemia, unspecified E78.5 [place] [address] [address] 14 Aug, 2015 Other chronic pain G89.29 ; Sinusitis J3 2.9 and Hypertension I10 [place] [address] [address] 29 Jul, 2015 [place] [address] [address] 15 Jul, [address] [address] 10 Jul, 2015 Insomnia G47.00 and Arthralgia M25.[address] [address] 10 Jul, 2015 Depressive disorder F32.9 and Anxiety di sorder, unspecified F41.[address] [address] May, Right-sided low back pain without sciati ca M54.5 and Depression F32.[address] [address] Apr, Hematuria R31.[address] [address] Mar, Other chronic pain G89.[address] [address] Mar, Other chronic pain G89.29 [place] [address] [address] Feb, [place] [id number] 22 Feb, 2015 Other chronic pain 338.29 ; Dysuria 788. 1 ; UTI (urinary tract infection) 599.0 ; Insomnia 780.52 ; Hot flashes 627.2 and Hypertension 401.[address] [address] Feb, Dysuria 788.1 [facility] [address] [address] Feb, [facility] [address] [address] Jan, [facility] [address] [address] Jan, [facility] [address] [address] Jan, Fibromyalgia 729.1 ; Hypertension 401.9 ; Dysthymia 300.4 and Hot flashes 627.2 [facility] [address] [address] Dec, [facility] [address] [address] Dec, [facility] [address] [address] Dec, [facility] [address] [address] Nov, Other chronic pain 338.29 [facility] [address] [address] October, [facility] [address] [address] October, [facility] [address] [address] Sep, [facility] [address] [address] Sep, [facility] [address] [address] Aug, [facility] [address] [address] Aug, [facility] [address] [address] Aug, [facility] [address] [id number] [place] [address] Aug, [facility] [address] [id number] [place] [address] Aug, [facility] [address] [id number] [place] [address] Aug, [facility] [address] [id number] [place] [address] Aug, [facility] [address] [id number] [place] [address] Aug, [facility] [address] [id number] [place] [address] Aug, [facility] [address] [id number] [place] [address] Aug, [facility] [address] [id number] [place] [address] Aug, [facility] [address] [id number] [place] [address] Aug, [facility] [address] [id number] [place] [address] Aug, [facility] [address] [id number] [place] [address] Aug, [facility] [address] [id number] [place] [address] Jul, [facility] [address] [id number] [place] [address] Jul, [facility] [address] [id number] [place] [address] Jul, [facility] [address] [id number] [place] [address] Jul, [facility] [address] [id number] [place] [address] Jul, [facility] [address] [id number] [place] [address] Jul, [facility] [address] [id number] [place] [address] Jun, [facility] [address] [id number] [place] [address] Jun, [facility] [address] [id number] [place] [address] Jun, [facility] [address] [id number] [place] [address] Jun, [facility] [address] [id number] [place] [address] May, [facility] [address] [id number] [place] [address] May, [facility] [address] [id number] [place] [address] May, [facility] [address] [id number] [place] [address] May, [facility] [address] [id number] [place] [address] May, [facility] [address] [id number] [place] [address] May, [facility] [address] [id number] [place] [address] May, [facility] [address] [id number] [place] [address] May, [facility] [address] [id number] [place] [address] May, [facility] [address] [id number] [place] [address] May, [facility] [address] [id number] [place] [address] Apr, [facility] [address] [id number] [place] [address] Apr, [facility] [address] [id number] [place] [address] Apr, [facility] [address] [id number] [place] [address] Apr, [facility] [address] [id number] [place] [address] Apr, [facility] [address] [id number] [place] [address] Apr, [facility] [address] [id number] [place] [address] Apr, [facility] [address] [id number] [place] [address] Apr, [facility] [address] [id number] [place] [address] Apr, [facility] [address] [id number] [place] [address] Mar, [facility] [address] [id number] [place] [address] Mar, [facility] [address] [id number] [place] [address] Mar, [facility] [address] [id number] [place] [address] Mar, [facility] [address] [id number] [place] [address] Mar, [facility] [address] [id number] [place] [address] Mar, [facility] [address] [id number] [place] [address] Mar, [facility] [address] [id number] [place] [address] Mar, [facility] [address] [id number] [place] [address] Feb, [facility] [address] [id number] [place] [address] 30 Feb, 2014 [facility] [address] [id number] [place] [address] 24 Feb, 2013 [facility] [address] [id number] [place] [address] 24 Feb, 2013 [facility] [address] [id number] [place] [address] 22 Feb, 2013 [facility] [address] [id number] [place] [address] 22 Feb, 2013 [facility] [address] [facility] [id number] [place] [address] 10 Feb, 2013 [facility] [address] [id number] [place] [address] Feb, 2013 [facility] [address] [id number] [place] [address] Feb, 2013 [facility] [address] [id number] [place] [address] Feb, 2013 [facility] [address] [id number] [place] [address] Feb, 2013 [facility] [address] [id number] [place] [address] Feb, 2013 [facility] [address] [id number] [place] [address] Feb, 2013 [facility] [address] [id number] [place] [address] Feb, 2013 [facility] [address] [id number] [place] [address] Jan, 2013 [facility] [address] [id number] [place] [address] Jan, [facility] [address] [id number] [place] [address] Dec, [facility] [address] [id number] [place] [address] Dec, [facility] [address] [id number] [place] [address] Dec, 2013 [facility] [address] [facility] [id number] [place] [address] Dec, 2013 [facility] [address] [id number] [facility] [place] [id number] Dec, 2013 [facility] [address] [facility] [id number] [place] [address] 15 Dec, 2013 [facility] [address] [facility] [id number] [place] [address] Dec, 2013 [facility] [address] [facility] [id number] [place] [address] Dec, 2013 [facility] [address] [facility] [id number] [place] [address] Dec, 2013 [facility] [address] [id number] [place] [address] Dec, 2013 [facility] [address] [id number] [place] [address] Dec, 2013 [facility] [address] [facility] [id number] [place] [address] Dec, 2013 [facility] [address] [id number] [place] [address] Dec, 2013 [facility] [address] [id number] [place] [address] Dec, 2013 [facility] [address] [id number] [place] [address] Dec, 2013 [facility] [address] [facility] [id number] [place] [address] Dec, 2013 [facility] [address] [facility] [id number] [place] [address] Dec, 2013 [facility] [address] [facility] [id number] [place] [address] Dec, 2013 [facility] [address] [id number] [place] [address] Dec, 2013 [facility] [address] [id number] [place] [address] Nov, [facility] [address] [id number] [place] [address] Nov, [facility] [address] [id number] [place] [address] Nov, [facility] [address] [id number] [place] [address] Nov, [facility] [address] [id number] [place] [address] Nov, [facility] [address] [facility] [id number] [place] [address] Nov, [facility] [address] [id number] [place] [address] Nov, [facility] [address] [id number] [place] [address] Nov, [facility] [address] [id number] [place] [address] Nov, [facility] [address] [id number] [place] [address] October, [facility] [address] [id number] [place] [address] October, [facility] [address] [id number] [place] [address] October, [facility] [address] [id number] [place] [address] October, [facility] [address] [id number] [place] [address] October, [facility] [address] [id number] [place] [address] October, [facility] [address] [id number] [place] [address] October, [facility] [address] [id number] [place] [address] October, [facility] [address] [id number] [place] [address] Sep, [facility] [address] [id number] [place] [address] Sep, [facility] [address] [id number] [place] [address] Sep, [facility] [address] [id number] [place] [address] Sep, [facility] [address] [id number] [place] [address] Sep, [facility] [address] [id number] [place] [address] Sep, [facility] [address] [id number] [place] [address] Sep, [facility] [address] [id number] [place] [address] Aug, [facility] [address] [id number] [place] [address] Aug, [facility] [address] [id number] [place] [address] Aug, [facility] [address] [id number] [place] [address] Aug, [facility] [address] [id number] [place] [address] Aug, [facility] [address] [id number] [place] [address] Aug, [facility] [address] [id number] [place] [address] Jul, [facility] [address] [id number] [place] [address] Jul, [facility] [address] [id number] [place] [address] Jul, [facility] [address] [id number] [place] [address] Jul, [facility] [address] [id number] [place] [address] Jul, [facility] [address] [id number] [place] [address] Jul, [facility] [address] [id number] [place] [address] Jun, [facility] [address] [id number] [place] [address] Jun, [facility] [address] [id number] [place] [address] Jun, [facility] [address] [id number] [place] [address] Jun, [facility] [address] [id number] [place] [address] Jun, [facility] [address] [id number] [place] [address] Jun, [facility] [address] [id number] [place] [address] Jun, [facility] [address] [id number] [place] [address] Jun, [facility] [address] [id number] [place] [address] Jun, [facility] [address] [id number] [place] [address] Jun, [facility] [address] [id number] [place] [address] Jun, [facility] [address] [id number] [place] [address] Jun, [facility] [address] [id number] [place] [address] Jun, [facility] [address] [address] [id number] [place] [address] May, [facility] [address] [id number] [place] [address] 30 May, 2013 [facility] [address] [id number] [place] [address] 30 May, 2013 [facility] [address] [id number] [place] [address] 30 May, 2013 [facility] [address] [id number] [place] [address] 26 May, 2012 [facility] [address] [id number] [place] [address] 14 May, 2013 [facility] [address] [id number] [place] [address] 14 May, 2013 [facility] [address] [id number] [place] [address] May, [facility] [address] [id number] [place] [address] 12 May, 2013 [facility] [address] [id number] [place] [address] May, [facility] [address] [id number] [place] [address] May, [facility] [address] [id number] [place] [address] May, [facility] [address] [id number] [place] [address] May, [facility] [address] [id number] [place] [address] May, [facility] [address] [id number] [place] [address] May, [facility] [address] [id number] [place] [address] 08 May, 2013 [facility] [address] [id number] [place] [address] 07 May, 2013 [facility] [address] [id number] [place] [address] 06 May, 2013 [facility] [address] [id number] [place] [address] May, 2012 [facility] [address] [id number] [place] [address] May, 2012 [facility] [address] [id number] [place] [address] May, [facility] [address] [id number] [place] [address] Apr, [facility] [address] [id number] [place] [address] Apr, [facility] [address] [id number] [place] [address] Apr, [facility] [address] [id number] [place] [address] Apr, [facility] [address] [id number] [place] [address] 08 Mar, 2013 [facility] [address] [id number] [place] [address] 23 Feb, 2012 [facility] [address] [id number] [place] [address] 16 Feb, 2013 [facility] [address] [id number] [place] [address] 13 Feb, 2012 [facility] [address] [id number] [place] [address] 10 Feb, 2012 [facility] [address] [id number] [place] [address] 09 Feb, 2012 [facility] [address] [id number] [place] [address] 09 Feb, 2012 [facility] [address] [id number] [place] [address] Jan, [facility] [address] [id number] [place] [address] Jan, [facility] [address] [id number] [place] [address] Jan, [facility] [address] [id number] [place] [address] Dec, [facility] [address] [facility] [id number] [place] [address] Dec, [facility] [address] [id number] [place] [address] Dec, [facility] [address] [id number] [place] [address] Dec, [facility] [address] [facility] [id number] [place] [address] Dec, [facility] [address] [id number] [place] [address] Nov, [facility] [address] [id number] [place] [address] Nov, [facility] [address] [id number] [place] [address] Nov, [facility] [address] [id number] [place] [address] Nov, [facility] [address] [id number] [place] [address] Nov, [facility] [address] [id number] [place] [address] Nov, [facility] [address] [id number] [place] [address] Nov, [facility] [address] [facility] [id number] [place] [address] Nov, [facility] [address] [id number] [place] [address] 05 Nov, 2012 [facility] [address] [id number] [place] [address] Nov, [facility] [address] [id number] [place] [address] October, [facility] [address] [id number] [place] [address] October, [facility] [address] [id number] [place] [address] Sep, [facility] [address] [id number] [place] [address] Sep, [facility] [address] [id number] [place] [address] Sep, [facility] [address] [id number] [place] [address] Sep, [facility] [address] [id number] [place] [address] Sep, [facility] [address] [id number] [place] [address] Aug, [facility] [address] [id number] [place] [address] Aug, [facility] [address] [id number] [place] [address] Jul, [facility] [address] [id number] [place] [address] Jul, [facility] [address] [id number] [place] [address] Jun, [facility] [address] [id number] [place] [address] Jun, [facility] [address] [id number] [place] [address] May, [facility] [address] [id number] [place] [address] May, [facility] [address] [id number] [place] [address] May, [facility] [address] [id number] [place] [address] May, [facility] [address] [id number] [place] [address] Apr, [facility] [address] [id number] [place] [address] Apr, [facility] [address] [id number] [place] [address] Apr, [facility] [address] [id number] [place] [address] Apr, [facility] [address] [id number] [place] [address] Apr, [facility] [address] [id number] [place] [address] Apr, [facility] [address] [id number] [place] [address] Apr, [facility] [address] [id number] [place] [address] Apr, [facility] [address] [id number] [place] [address] Apr, [facility] [address] [id number] [place] [address] 15 Mar, 2012 [facility] [address] [id number] [place] [address] Mar, [facility] [address] [id number] [place] [address] Feb, [facility] [address] [id number] [place] [address] Jan, [facility] [address] [id number] [place] [address] Jan, [facility] [address] [id number] [place] [address] Dec, [facility] [address] [id number] [place] [address] Nov, [facility] [address] [id number] [place] [address] Nov, [facility] [address] [id number] [place] [address] October, [facility] [address] [id number] [place] [address] October, [facility] [address] [id number] [place] [address] Sep, [facility] [address] [id number] [place] [address] Sep, [facility] [address] [id number] [place] [address] May, [facility] [address] [id number] [place] [address] Apr, [facility] [address] [id number] [place] [address] Apr, [facility] [address] [id number] [place] [address] 15 Apr, 2011 [facility] [address] [id number] [place] [address] 15 Apr, 2011 [facility] [address] [id number] [place] [address] Apr, [facility] [address] [id number] [place] [address] Apr, [facility] [address] [id number] [place] [address] Apr, [facility] [address] [id number] [place] [address] Apr, [facility] [address] [id number] [place] [address] Mar, [facility] [id number] [place] [address] Mar, [facility] [address] [id number] [place] [address] Mar, [facility] [address] [id number] [place] [address] Mar, [facility] [address] [facility] [id number] [place] [address] Mar, [facility] [address] [facility] [id number] [place] [address] Mar, IMMUNIZATIONS No Known Immunizations SOCIAL HISTORY [...] Stomach surgeryx3 Hospitalization History Mental floor at [facility]
--- OUTSIDE RECORDS SUMMARY | 2019-12-24 19:48 | XMS REPORT ---
Author Author Trey ANDRADE Organization [facility] Address [address] [place] [address] Care Team Providers Care Emt/Dispatcher Name Role Phone SURESH ANDRADE Unavailable PROBLEMS Type Condition ICD9-CM Code CTL00-BY Code Onset Dates Condition S tatus SNOMED Code Problem Nondependent 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 Ac tive 932404054 Problem Other chronic pain G89.29 Active 1 96150397 Problem Unspecified epilepsy without mention of intractable ep ilepsy G40.909 Active 80135977 Problem Hyperlipidemia, unspecified E78.5 Ac tive 34911724 Problem Hypertension I10 Active 2018592 3 Problem Esophageal reflux K21.9 Active 23 9782480 Problem Rheumatoid arthritis M06.9 Active 88458715 Problem Cough R05 Active 10075030 Problem Acquired hypothyroidism E03.9 Active 709459904 Problem Unspecified open-angle glaucoma, stage unspecified H40.10X0 Feb, Active 46227660 Problem Presbyopia H52.4 Active 84033384 Problem Insomnia G47.00 Active 781091481 Problem Arthralgia M25.50 Active 92362165 Problem Thyroid nodule E04.1 Active 81682 5005 Problem Anxiety disorder, unspecified F41.9 Active 530605927 Problem Chronic tension-type headache, intractable G44.221 Active 406312430 Problem Neuropathy G62.9 Active 322268193 Problem Goiter E04.9 Active 4646607 Problem Multinodular goiter E04.2 Active 012968541 Problem Carpal tunnel syndrome of left wrist G56.02 Active [id number] Problem Chronic obstructive pulmonary disease, unspecified COPD ty pe J44.9 Active 20617825 Problem BMI 40.0-44.9, adult Z68.41 Active 071817590 Problem Seasonal allergic rhinitis due to pollen J30.1 Active 02883413 Problem Depression F32.9 Active 71264153 Problem Essential hypertension I10 Active 55743525 Problem Depressive disorder F32.9 Active 15610980 Problem Right-sided low back pain without sciatica M54.5 Active 699704237 Problem Reactive airway disease with out complication, unspecified asthma severity, unspecified whether persistent J45.909 Active 159573164787 Problem Urge incontinence of urine N39.41 Act chen 36609886 Problem Abnormal laboratory test R89.9 Activ e 527455629 Problem COPD with exacerbation J44.1 Active 943953914 ALLERGIES No Information ENCOUNTERS Encounter Location Date Diagnosis [place] [address] [address] Apr, Bronchitis J40 [place] [address] [address] Apr, Acute gastritis without hemorrhage, unsp ecified gastritis type K29.00 [place] [address] [address] Mar, [place] [address] [address] Feb, [place] [address] [address] Feb, Mass of right side of neck R22.1 and Mul tinodular goiter E04.2 [facility] [place] [id number] [address] [place] [address] Jan, Bronchitis J40 [place] [address] [address] October, Acquired hypothyroidism E03.9 [place] [address] [address] October, Acute gastritis without hemorrhage, unsp ecified gastritis type K29.00 ; Epigastric pain R10.13 ; Essential hypertension I10 ; Screening for colon cancer Z12.11 and BMI 40.0-44.9, adult Z68.41 [place] [address] [address] October, [facility] [address] [address] [address] October, Chest pain R07.9 and Morbid obesity E66.01 [facility] [address] [address] Sep, Generalized abdominal pain R 10.84 ; Morbid obesity E66.01 ; Non-intractable vomiting with nausea, unspecified vomiting type R11.2 and Seasonal allergic rhinitis due to pollen J30.1 [facility] [address] [address] Jul, COPD with exacerbation J44.1 ; Viral upper respiratory tract infection J06.9 and Morbid obesity E66.01 [facility] [address] [address] Jun, Viral upper respiratory trac t infection J06.9 [place] [address] [address] Apr, Abnormal laboratory test R89.9 [place] [address] [address] Apr, Abnormal laboratory test R89.9 [place] [address] [address] Apr, Abnormal laboratory test R89.9 [place] [address] [address] Apr, [place] [address] [address] Apr, [place] [address] [address] Apr, Nonintractable episodic headache, unspec ified headache type R51 ; Urge incontinence of urine N39.41 ; BMI 40.0-44.9, adult Z68.41 ; Myalgia M79.10 and Acute cystitis without hematuria N30.00 [place] [address] [address] Mar, Nasal congestion R09.81 ; Low back pain M54.5 ; Reactive airway disease without complication, unspecified asthma severity, unspecified whether persistent J45.909 ; Other chronic pain G89.29 ; Acute cystitis with hematuria N30.01 and BMI 40.0-44.9, adult Z68.41 [facility] [address] [address] Mar, Acute cystitis with hematuria N30.01 [facility] [address] [facility] [id number] [address] [place] [address] Mar, BMI 40.0-44.9, adult Z68.41 ; Acute cystitis with hematuria N30.01 ; Acute bilateral low back pain without sciatica M54.5 and Nausea R11.0 [place] [address] [address] Mar, Hypertension I10 ; Acquired hypothyroidi sm E03.9 ; Esophageal reflux K21.9 ; Chronic obstructive pulmonary disease, unspecified COPD type J44.9 and BMI 40.0-44.9, adult Z68.41 [place] [address] [address] Mar, Hypertension I10 [place] [address] [address] Nov, Hyperlipidemia, unspecified E78.[address] [address] October, Chest pain, unspecified type R07.9 and A cquired hypothyroidism E03.9 [place] [address] [address] October, Chest pain, unspecified type R07.9 ; Fam demetrius history of coronary artery disease Z82.49 ; Carpal tunnel syndrome of left wrist G56.02 ; Hypertension I10 ; Esophageal reflux K21.9 ; Arthralgia M25.50 ; Acquired hypothyroidism E03.9 ; Cough R05 ; Nausea R11.0 ; Weight gain R63.5 and BMI 45.0-49.9, adult Z68.42 [place] [address] [address] Jun, Acquired hypothyroidism E03.9 and Cough R05 [place] [address] [address] May, [place] [address] [address] Feb, Tarsal tunnel syndrome of both lower ext remities G57.53 and Neuropathy G62.9 [place] [address] [address] Dec, Pleuritis R09.1 [place] [address] [address] Nov, [place] [address] [address] October, Arthralgia, unspecified joint M25.50 and Allergy, initial encounter T78.40XA [place] [address] [address] October, [place] [address] [address] October, Acute recurrent maxillary sinusitis J01. 01 and Arthralgia M25.50 [place] [address] [address] Sep, Pharyngitis due to other organism J02.8 [place] [address] [address] Aug, Acute nasopharyngitis J00 [place] [address] [address] Aug, Multinodular goiter E04.2 [place] [address] [address] Aug, Thyroid nodule E04.1 [place] [address] [address] Jul, Tarsal tunnel syndrome of both lower ext remities G57.53 [place] [address] [address] Jun, Pneumonia due to infectious organism, un specified laterality, unspecified part of lung J18.9 [place] [address] [address] Jun, Bronchospasm with bronchitis, acute J20. 9 [place] [address] [address] May, Acute non-recurrent frontal sinusitis J0 1.10 [place] [address] [address] May, Flat foot [pes planus] (acquired), left foot M21.42 ; Flat foot [pes planus] (acquired), right foot M21.41 and Neuropathy G62.9 [place] [address] [address] Apr, Chronic tension-type headache, intractab le G44.221 ; Right lower quadrant abdominal pain R10.31 ; Cervicalgia M54.2 ; Acute gastritis without hemorrhage, unspecified gastritis type K29.00 and Hypertension I10 [address] [address] Mar, Depression F32.9 and Anxiety disorder, u nspecified F41.9 [place] [address] [address] Feb, Depressive disorder F32.9 and Anxiety di sorder, unspecified F41.9 [place] [address] [address] Jan, Dysuria R30.0 ; Lower abdominal pain R10 .30 ; Acute bilateral low back pain without sciatica M54.5 ; Nausea and vomiting, unspecified intactability, vomiting of unspecified type R11.2 ; Pain in right foot M79.671 and Pain of left foot M79.[address] [address] Dec, Urinary tract infection, site not specif ied N39.0 [facility] [address] [address] Dec, [facility] [address] [address] Nov, [facility] [address] [address] Nov, Dysuria R30.0 [facility] [address] [address] Nov, Dysuria R30.0 and Acute cystitis with he maturia N30.01 [facility] [address] [address] October, Nausea R11.0 [facility] [address] [address] October, Thyroid nodule E04.1 ; Carpal tunnel syn drome, left upper limb G56.02 ; Carpal tunnel syndrome, right upper limb G56.01 and Constipation, unspecified constipation type K59.00 [facility] [address] [address] October, [facility] [address] [address] October, Thyroid nodule E04.1 [facility] [address] [address] October, Cold thyroid nodule E04.1 [facility] [address] [address] October, [facility] [address] [address] Sep, Thyroid nodule E04.1 [facility] [address] [address] Sep, Thyroid nodule E04.1 [facility] [address] [address] Sep, Thyroid nodule E04.1 ; Hypertension I10 ; Esophageal reflux K21.9 and Hyperlipidemia, unspecified E78.5 [place] [address] [address] Aug, Other chronic pain G89.29 ; Sinusitis J3 2.9 and Hypertension I10 [place] [address] [address] Jul, [place] [address] [address] 15 Jul, [address] [address] 10 Jul, 2015 Insomnia G47.00 and Arthralgia M25.[address] [address] 10 Jul, 2015 Depressive disorder F32.9 and Anxiety di sorder, unspecified F41.[address] [address] May, Right-sided low back pain without sciati ca M54.5 and Depression F32.[address] [address] Apr, Hematuria R31.[address] [address] Mar, Other chronic pain G89.[address] [address] Mar, Other chronic pain G89.[address] [address] Feb, [address] [address] Feb, Other chronic pain 338.29 ; Dysuria 788. 1 ; UTI (urinary tract infection) 599.0 ; Insomnia 780.52 ; Hot flashes 627.2 and Hypertension 401.9 [facility] [address] [place] [id number] [place] [address] Feb, Dysuria 788.1 [facility] [address] [place] [id number] [place] [address] Feb, [facility] [address] [address] Jan, [facility] [address] [address] Jan, [facility] [address] [address] Jan, Fibromyalgia 729.1 ; Hypertension 401.9 ; Dysthymia 300.4 and Hot flashes 627.2 [facility] [address] [address] Dec, [facility] [address] [address] Dec, [facility] [address] [place] [id number] [place] [address] Dec, [facility] [address] [address] Nov, Other chronic pain 338.29 [facility] [address] [place] [id number] [place] [address] October, [facility] [address] [address] October, [facility] [address] [place] [id number] [place] [address] Sep, [facility] [address] [address] Sep, [facility] [address] [place] [id number] [place] [address] Aug, [facility] [address] [address] Aug, [facility] [address] [id number] [place] [address] Aug, [facility] [address] [id number] [place] [address] Aug, [facility] [address] [id number] [place] [address] Aug, [facility] [address] [id number] [place] [address] Aug, [facility] [address] [id number] [place] [address] Aug, [facility] [address] [id number] [place] [address] Aug, [facility] [address] [id number] [place] [address] Aug, [facility] [address] [id number] [place] [address] Aug, [facility] [address] [id number] [place] [address] Aug, [facility] [address] [id number] [place] [address] Aug, [facility] [address] [id number] [place] [address] Aug, [facility] [address] [id number] [place] [address] Aug, [facility] [address] [id number] [place] [address] Jul, 2014 [facility] [address] [id number] [place] [address] Jul, [facility] [address] [id number] [place] [address] Jul, [facility] [address] [id number] [place] [address] Jul, [facility] [address] [id number] [place] [address] Jul, [facility] [address] [id number] [place] [address] Jul, [facility] [address] [id number] [place] [address] Jun, [facility] [address] [id number] [place] [address] Jun, [facility] [address] [id number] [place] [address] Jun, [facility] [address] [id number] [place] [address] Jun, [facility] [address] [id number] [place] [address] May, [facility] [address] [id number] [place] [address] May, [facility] [address] [id number] [place] [address] May, [facility] [address] [id number] [place] [address] May, [facility] [address] [id number] [place] [address] May, [facility] [address] [id number] [place] [address] May, [facility] [address] [id number] [place] [address] May, [facility] [address] [id number] [place] [address] May, [facility] [address] [id number] [place] [address] May, [facility] [address] [id number] [place] [address] May, [facility] [address] [id number] [place] [address] Apr, [facility] [address] [id number] [place] [address] Apr, [facility] [address] [id number] [place] [address] Apr, [facility] [address] [id number] [place] [address] Apr, [facility] [address] [id number] [place] [address] Apr, [facility] [address] [id number] [place] [address] Apr, [facility] [address] [id number] [place] [address] Apr, [facility] [address] [id number] [place] [address] Apr, [facility] [address] [id number] [place] [address] Apr, [facility] [address] [id number] [place] [address] Mar, [facility] [address] [id number] [place] [address] Mar, [facility] [address] [id number] [place] [address] Mar, [facility] [address] [id number] [place] [address] Mar, [facility] [address] [id number] [place] [address] Mar, [facility] [address] [id number] [place] [address] Mar, [facility] [address] [id number] [place] [address] Mar, [facility] [address] [id number] [place] [address] Mar, [facility] [address] [id number] [place] [address] Feb, [facility] [address] [id number] [place] [address] 30 Sep, 2013 [facility] [address] [id number] [place] [address] 24 Feb, 2013 [facility] [address] [id number] [place] [address] 24 Feb, 2013 [facility] [address] [id number] [place] [address] 22 Feb, 2013 [facility] [address] [facility] [id number] [place] [address] 22 Feb, 2013 [facility] [address] [id number] [place] [address] 10 Feb, 2013 [facility] [address] [id number] [place] [address] 10 Feb, 2013 [facility] [address] [id number] [place] [address] Sep, 2013 [facility] [address] [id number] [place] [address] Sep, 2013 [facility] [address] [id number] [place] [address] Feb, 2013 [facility] [address] [id number] [place] [address] Feb, 2013 [facility] [address] [id number] [place] [address] Feb, 2013 [facility] [address] [id number] [place] [address] Feb, 2013 [facility] [address] [id number] [place] [address] Jan, [facility] [address] [id number] [place] [address] Jan, 2013 [facility] [address] [id number] [place] [address] Dec, 2013 [facility] [address] [id number] [place] [address] Dec, 2013 [facility] [address] [id number] [facility] [place] [address] Dec, 2013 [facility] [address] [facility] [id number] [place] [address] Dec, 2013 [facility] [address] [facility] [id number] [facility] [place] [id number] Dec, 2013 [facility] [address] [facility] [id number] [place] [address] Dec, 2013 [facility] [address] [facility] [id number] [place] [address] Dec, 2013 [facility] [address] [facility] [id number] [place] [address] Dec, 2013 [facility] [address] [id number] [place] [address] Dec, 2013 [facility] [address] [id number] [place] [address] Dec, 2013 [facility] [address] [facility] [id number] [place] [address] Dec, 2013 [facility] [address] [id number] [place] [address] Dec, 2013 [facility] [address] [id number] [place] [address] Dec, 2013 [facility] [address] [id number] [place] [address] Dec, 2013 [facility] [address] [facility] [id number] [place] [address] Dec, 2013 [facility] [address] [facility] [id number] [place] [address] Dec, 2013 [facility] [address] [facility] [id number] [place] [address] Dec, 2013 [facility] [address] [id number] [place] [address] Dec, 2013 [facility] [address] [id number] [place] [address] Dec, [facility] [address] [id number] [place] [address] Nov, [facility] [address] [id number] [place] [address] Nov, [facility] [address] [id number] [place] [address] Nov, [facility] [address] [id number] [place] [address] Nov, [facility] [address] [id number] [place] [address] Nov, [facility] [address] [id number] [place] [address] Nov, [facility] [address] [id number] [place] [address] Nov, [facility] [address] [id number] [place] [address] Nov, [facility] [address] [id number] [place] [address] Nov, [facility] [address] [id number] [place] [address] October, [facility] [address] [id number] [place] [address] October, [facility] [address] [id number] [place] [address] October, [facility] [address] [id number] [place] [address] October, [facility] [address] [id number] [place] [address] October, [facility] [address] [id number] [place] [address] October, [facility] [address] [id number] [place] [address] October, [facility] [address] [id number] [place] [address] October, [facility] [address] [id number] [place] [address] Sep, [facility] [address] [id number] [place] [address] Sep, [facility] [address] [id number] [place] [address] Sep, [facility] [address] [id number] [place] [address] Sep, [facility] [address] [id number] [place] [address] Sep, [facility] [address] [id number] [place] [address] Sep, [facility] [address] [id number] [place] [address] Sep, [facility] [address] [id number] [place] [address] Aug, [facility] [address] [id number] [place] [address] Aug, [facility] [address] [id number] [place] [address] Aug, [facility] [address] [id number] [place] [address] Aug, [facility] [address] [id number] [place] [address] Aug, [facility] [address] [id number] [place] [address] Aug, [facility] [address] [id number] [place] [address] Jul, [facility] [address] [id number] [place] [address] Jul, [facility] [address] [id number] [place] [address] Jul, [facility] [address] [facility] [id number] [place] [address] Jul, [facility] [address] [id number] [place] [address] Jul, [facility] [address] [id number] [place] [address] Jul, [facility] [address] [id number] [place] [address] Jun, [facility] [address] [id number] [place] [address] Jun, [facility] [address] [id number] [place] [address] Jun, [facility] [address] [id number] [place] [address] Jun, [facility] [address] [id number] [place] [address] Jun, [facility] [address] [id number] [place] [address] Jun, [facility] [address] [id number] [place] [address] Jun, [facility] [address] [id number] [place] [address] Jun, [facility] [address] [id number] [place] [address] Jun, [facility] [address] [id number] [place] [address] Jun, [facility] [address] [id number] [place] [address] Jun, [facility] [address] [id number] [place] [address] Jun, [facility] [address] [id number] [place] [address] Jun, [facility] [address] [id number] [place] [address] 30 May, 2012 [facility] [address] [id number] [place] [address] May, [facility] [address] [id number] [place] [address] May, [facility] [address] [id number] [place] [address] May, [facility] [address] [id number] [place] [address] May, [facility] [address] [id number] [place] [address] 14 May, 2013 [facility] [address] [id number] [place] [address] 14 May, 2013 [facility] [address] [id number] [place] [address] May, [facility] [address] [id number] [place] [address] May, [facility] [address] [id number] [place] [address] May, [facility] [address] [id number] [place] [address] May, [facility] [address] [id number] [place] [address] May, [facility] [address] [id number] [place] [address] May, [facility] [address] [id number] [place] [address] 09 May, 2013 [facility] [address] [id number] [place] [address] May, [facility] [address] [id number] [place] [address] 08 May, 2013 [facility] [address] [id number] [place] [address] 07 May, 2013 [facility] [address] [id number] [place] [address] 06 May, 2012 [facility] [address] [id number] [place] [address] May, 2012 [facility] [address] [id number] [place] [address] May, 2012 [facility] [address] [id number] [place] [address] May, 2012 [facility] [address] [id number] [place] [address] Apr, [facility] [address] [id number] [place] [address] Apr, [facility] [address] [id number] [place] [address] Apr, [facility] [id number] [place] [address] Apr, [facility] [address] [id number] [place] [address] 08 Mar, 2013 [facility] [address] [id number] [place] [address] 23 Feb, 2012 [facility] [address] [id number] [place] [address] 16 Feb, 2012 [facility] [address] [id number] [place] [address] 13 Feb, 2012 [facility] [address] [id number] [place] [address] 10 Feb, 2012 [facility] [address] [id number] [place] [address] 09 Feb, 2012 [facility] [address] [id number] [place] [address] 09 Feb, 2012 [facility] [address] [id number] [place] [address] Jan, [facility] [address] [id number] [place] [address] Jan, [facility] [address] [facility] [id number] [facility] [place] [address] Jan, [facility] [address] [facility] [id number] [facility] [place] [address] Dec, [facility] [address] [id number] [facility] [place] [address] Dec, [facility] [address] [facility] [id number] [facility] [place] [address] Dec, [facility] [address] [facility] [id number] [facility] [place] [address] Dec, [facility] [address] [id number] [place] [address] Dec, [facility] [address] [id number] [place] [address] Nov, [facility] [address] [id number] [place] [address] Nov, [facility] [address] [id number] [place] [address] Nov, [facility] [address] [id number] [place] [address] Nov, [facility] [address] [id number] [place] [address] Nov, [facility] [address] [id number] [place] [address] Nov, [facility] [address] [facility] [id number] [place] [address] 07 Nov, 2012 [facility] [address] [id number] [place] [address] 06 Nov, 2012 [facility] [address] [id number] [place] [address] 05 Nov, 2012 [facility] [address] [id number] [place] [address] Nov, [facility] [address] [id number] [place] [address] October, [facility] [address] [id number] [place] [address] October, [facility] [address] [id number] [place] [address] Sep, [facility] [address] [id number] [place] [address] Sep, [facility] [address] [id number] [place] [address] Sep, [facility] [address] [id number] [place] [address] Sep, [facility] [address] [id number] [place] [address] Sep, [facility] [id number] [place] [address] Aug, [facility] [address] [id number] [place] [address] Aug, [facility] [address] [id number] [place] [address] Jul, [facility] [address] [id number] [place] [address] Jul, [facility] [address] [id number] [place] [address] Jun, [facility] [address] [id number] [place] [address] Jun, [facility] [address] [id number] [place] [address] May, [facility] [id number] [place] [address] May, [facility] [address] [id number] [place] [address] May, [facility] [address] [id number] [place] [address] May, [facility] [address] [id number] [place] [address] Apr, [facility] [address] [id number] [place] [address] Apr, [facility] [address] [id number] [place] [address] Apr, [facility] [address] [id number] [place] [address] Apr, [facility] [address] [id number] [place] [address] Apr, [facility] [address] [id number] [place] [address] Apr, [facility] [address] [id number] [place] [address] Apr, [facility] [address] [id number] [place] [address] Apr, [facility] [address] [id number] [place] [address] Apr, [facility] [address] [id number] [place] [address] Mar, [facility] [address] [id number] [place] [address] Mar, [facility] [address] [id number] [place] [address] Feb, [facility] [address] [id number] [place] [address] Jan, [facility] [address] [id number] [place] [address] Jan, [facility] [address] [id number] [place] [address] Dec, [facility] [address] [id number] [place] [address] Nov, [facility] [address] [id number] [place] [address] Nov, [facility] [address] [id number] [place] [address] October, [facility] [address] [id number] [place] [address] October, [facility] [address] [id number] [place] [address] Sep, [facility] [address] [id number] [place] [address] Sep, [facility] [address] [id number] [place] [address] May, [facility] [address] [id number] [place] [address] Apr, [facility] [address] [id number] [place] [address] Apr, [facility] [address] [id number] [place] [address] Apr, [facility] [address] [id number] [place] [address] 15 Apr, 2011 [facility] [address] [id number] [place] [address] 15 Apr, 2011 [facility] [address] [id number] [place] [address] Apr, [facility] [address] [id number] [place] [address] Apr, [facility] [address] [id number] [place] [address] Apr, [facility] [id number] [place] [address] Mar, [facility] [address] [id number] [place] [address] Mar, [facility] [address] [id number] [place] [address] Mar, [facility] [address] [facility] [id number] [place] [address] Mar, [facility] [address] [id number] [place] [address] Mar, [facility] [address] [facility] [id number] [place] [address] Mar, IMMUNIZATIONS No Known Immunizations SOCIAL HISTORY [...] Hospitalization History Mental floor at [facility]
--- OUTSIDE RECORDS SUMMARY | 2019-12-24 19:48 | XMS REPORT ---
Author Author Trey ANDRADE Organization [facility] Address [address] [place] [address] Care Team Providers Care Financial Services Technician Name Role Phone SURESH ANDRADE Unavailable PROBLEMS Type Condition ICD9-CM Code [id number] Code Onset Dates Condition S tatus SNOMED Code Problem Nondependent 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 Ac tive 714444208 Problem Other chronic pain G89.29 Active 1 59642893 Problem Unspecified epilepsy without mention of intractable ep ilepsy G40.909 Active 05651129 Problem Hyperlipidemia, unspecified E78.5 Ac tive 00128337 Problem Hypertension I10 Active 4484850 3 Problem Esophageal reflux K21.9 Active 23 8360748 Problem Rheumatoid arthritis M06.9 Active 93648087 Problem Cough R05 Active 55341024 Problem Acquired hypothyroidism E03.9 Active 810163023 Problem Unspecified open-angle glaucoma, stage unspecified H40.10X0 Feb, Active 02376789 Problem Presbyopia H52.4 Active 29310717 Problem Insomnia G47.00 Active 873157004 Problem Arthralgia M25.50 Active 47866835 Problem Thyroid nodule E04.1 Active 41153 5005 Problem Anxiety disorder, unspecified F41.9 Active 168091353 Problem Chronic tension-type headache, intractable G44.221 Active 663472583 Problem Neuropathy G62.9 Active 798705153 Problem Goiter E04.9 Active 5384672 Problem Multinodular goiter E04.2 Active 178646403 Problem Carpal tunnel syndrome of left wrist G56.02 Active 860907878862502 Problem Chronic obstructive pulmonary disease, unspecified COPD ty pe J44.9 Active 61647011 Problem BMI 40.0-44.9, adult Z68.41 Active 380785278 Problem Seasonal allergic rhinitis due to pollen J30.1 Active 43186718 Problem Depression F32.9 Active 92325627 Problem Essential hypertension I10 Active 01254867 Problem Depressive disorder F32.9 Active 74446138 Problem Right-sided low back pain without sciatica M54.5 Active 404365046 Problem Reactive airway disease with out complication, unspecified asthma severity, unspecified whether persistent J45.909 Active 686084787315 Problem Urge incontinence of urine N39.41 Act chen 51652357 Problem Abnormal laboratory test R89.9 Activ e 709090076 Problem COPD with exacerbation J44.1 Active 473289329 ALLERGIES No Information ENCOUNTERS Encounter Location Date Diagnosis [place] [address] [address] Apr, Bronchitis J40 [place] [address] [address] Apr, Acute gastritis without hemorrhage, unsp ecified gastritis type K29.00 [place] [address] [address] Mar, [place] [address] [address] Feb, [place] [address] [address] Feb, Mass of right side of neck R22.1 and Mul tinodular goiter E04.2 [facility] [place] [id number] [place] [address] Jan, Bronchitis J40 [place] [address] [address] October, Acquired hypothyroidism E03.9 [place] [address] [address] October, Acute gastritis without hemorrhage, unsp ecified gastritis type K29.00 ; Epigastric pain R10.13 ; Essential hypertension I10 ; Screening for colon cancer Z12.11 and BMI 40.0-44.9, adult Z68.41 [place] [address] [address] October, [facility] [address] [place] [address] [address] October, Chest pain R07.9 and Morbid obesity E66.01 [facility] [address] [address] Sep, Generalized abdominal pain R 10.84 ; Morbid obesity E66.01 ; Non-intractable vomiting with nausea, unspecified vomiting type R11.2 and Seasonal allergic rhinitis due to pollen J30.1 [facility] [address] [address] Jul, COPD with exacerbation J44.1 ; Viral upper respiratory tract infection J06.9 and Morbid obesity E66.01 [facility] [address] [address] Jun, Viral upper respiratory trac t infection J06.9 [place] [address] [address] Apr, Abnormal laboratory test R89.9 [place] [address] [address] Apr, Abnormal laboratory test R89.9 [place] [address] [address] Apr, Abnormal laboratory test R89.9 [place] [address] [address] Apr, [place] [address] [address] Apr, [place] [address] [address] Apr, Nonintractable episodic headache, unspec ified headache type R51 ; Urge incontinence of urine N39.41 ; BMI 40.0-44.9, adult Z68.41 ; Myalgia M79.10 and Acute cystitis without hematuria N30.00 [place] [address] [address] Mar, Nasal congestion R09.81 ; Low back pain M54.5 ; Reactive airway disease without complication, unspecified asthma severity, unspecified whether persistent J45.909 ; Other chronic pain G89.29 ; Acute cystitis with hematuria N30.01 and BMI 40.0-44.9, adult Z68.41 [facility] [place] [address] [address] Mar, Acute cystitis with hematuria N30.01 [facility] [address] [facility] [id number] [place] [address] Mar, BMI 40.0-44.9, adult Z68.41 ; Acute cystitis with hematuria N30.01 ; Acute bilateral low back pain without sciatica M54.5 and Nausea R11.0 [place] [address] [address] Mar, Hypertension I10 ; Acquired hypothyroidi sm E03.9 ; Esophageal reflux K21.9 ; Chronic obstructive pulmonary disease, unspecified COPD type J44.9 and BMI 40.0-44.9, adult Z68.41 [place] [address] [address] Mar, Hypertension I10 [place] [address] [address] Nov, Hyperlipidemia, unspecified E78.[address] [address] October, Chest pain, unspecified type R07.9 and A cquired hypothyroidism E03.9 [place] [address] [address] October, Chest pain, unspecified type R07.9 ; Fam demetrius history of coronary artery disease Z82.49 ; Carpal tunnel syndrome of left wrist G56.02 ; Hypertension I10 ; Esophageal reflux K21.9 ; Arthralgia M25.50 ; Acquired hypothyroidism E03.9 ; Cough R05 ; Nausea R11.0 ; Weight gain R63.5 and BMI 45.0-49.9, adult Z68.42 [place] [address] [address] Jun, Acquired hypothyroidism E03.9 and Cough R05 [place] [address] [address] May, [place] [address] [address] Feb, Tarsal tunnel syndrome of both lower ext remities G57.53 and Neuropathy G62.9 [place] [address] [address] Dec, Pleuritis R09.1 [place] [address] [address] Nov, [place] [address] [address] October, Arthralgia, unspecified joint M25.50 and Allergy, initial encounter T78.40XA [place] [address] [address] October, [place] [address] [address] October, Acute recurrent maxillary sinusitis J01. 01 and Arthralgia M25.50 [place] [address] [address] Sep, Pharyngitis due to other organism J02.8 [place] [address] [address] Aug, Acute nasopharyngitis J00 [place] [address] [address] Aug, Multinodular goiter E04.2 [place] [address] [address] Aug, Thyroid nodule E04.1 [place] [address] [address] Jul, Tarsal tunnel syndrome of both lower ext remities G57.53 [place] [address] [address] Jun, Pneumonia due to infectious organism, un specified laterality, unspecified part of lung J18.9 [place] [address] [address] Jun, Bronchospasm with bronchitis, acute J20. 9 [place] [address] [address] May, Acute non-recurrent frontal sinusitis J0 1.10 [place] [address] [address] May, Flat foot [pes planus] (acquired), left foot M21.42 ; Flat foot [pes planus] (acquired), right foot M21.41 and Neuropathy G62.9 [place] [address] [address] Apr, Chronic tension-type headache, intractab le G44.221 ; Right lower quadrant abdominal pain R10.31 ; Cervicalgia M54.2 ; Acute gastritis without hemorrhage, unspecified gastritis type K29.00 and Hypertension I10 [address] [address] Mar, Depression F32.9 and Anxiety disorder, u nspecified F41.9 [place] [address] [address] Feb, Depressive disorder F32.9 and Anxiety di sorder, unspecified F41.9 [place] [address] [address] Jan, Dysuria R30.0 ; Lower abdominal pain R10 .30 ; Acute bilateral low back pain without sciatica M54.5 ; Nausea and vomiting, unspecified intactability, vomiting of unspecified type R11.2 ; Pain in right foot M79.671 and Pain of left foot M79.[address] [address] Dec, Urinary tract infection, site not specif ied N39.0 [facility] [place] [address] [address] Dec, [facility] [place] [address] [address] Nov, [facility] [place] [address] [address] Nov, Dysuria R30.0 [facility] [place] [address] [address] Nov, Dysuria R30.0 and Acute cystitis with he maturia N30.01 [facility] [place] [address] [address] October, Nausea R11.0 [facility] [place] [address] [address] October, Thyroid nodule E04.1 ; Carpal tunnel syn drome, left upper limb G56.02 ; Carpal tunnel syndrome, right upper limb G56.01 and Constipation, unspecified constipation type K59.00 [facility] [place] [address] [address] October, [facility] [place] [address] [address] October, Thyroid nodule E04.1 [facility] [place] [address] [address] October, Cold thyroid nodule E04.1 [facility] [place] [address] [address] October, [facility] [place] [address] [address] Sep, Thyroid nodule E04.1 [facility] [place] [address] [address] Sep, Thyroid nodule E04.1 [facility] [place] [address] [address] Sep, Thyroid nodule E04.1 ; Hypertension I10 ; Esophageal reflux K21.9 and Hyperlipidemia, unspecified E78.5 [place] [address] [address] Aug, Other chronic pain G89.29 ; Sinusitis J3 2.9 and Hypertension I10 [place] [address] [address] Jul, [place] [address] [address] 15 Jul, [address] [address] 10 Jul, 2015 Insomnia G47.00 and Arthralgia M25.[address] [address] 10 Jul, 2015 Depressive disorder F32.9 and Anxiety di sorder, unspecified F41.[address] [address] May, Right-sided low back pain without sciati ca M54.5 and Depression F32.[address] [address] Apr, Hematuria R31.[address] [address] Mar, Other chronic pain G89.[address] [address] Mar, Other chronic pain G89.[address] [address] Feb, [address] [address] Feb, Other chronic pain 338.29 ; Dysuria 788. 1 ; UTI (urinary tract infection) 599.0 ; Insomnia 780.52 ; Hot flashes 627.2 and Hypertension 401.9 [facility] [place] [address] [place] [id number] [place] [address] Feb, Dysuria 788.1 [facility] [place] [address] [place] [id number] [place] [address] Feb, [facility] [place] [address] [address] Jan, [facility] [place] [address] [address] Jan, [facility] [place] [address] [address] Jan, Fibromyalgia 729.1 ; Hypertension 401.9 ; Dysthymia 300.4 and Hot flashes 627.2 [facility] [place] [address] [address] Dec, [facility] [place] [address] [address] Dec, [facility] [place] [address] [place] [id number] [place] [address] Dec, [facility] [place] [address] [address] Nov, Other chronic pain 338.29 [facility] [address] [place] [id number] [place] [address] October, [facility] [place] [address] [address] October, [facility] [place] [address] [place] [id number] [place] [address] Sep, [facility] [place] [address] [address] Sep, [facility] [place] [address] [place] [id number] [place] [address] Aug, [facility] [address] [address] Aug, [facility] [address] [id number] [place] [address] Aug, [facility] [address] [id number] [place] [address] Aug, [facility] [address] [id number] [place] [address] Aug, [facility] [address] [id number] [place] [address] Aug, [facility] [address] [id number] [place] [address] Aug, [facility] [address] [id number] [place] [address] Aug, [facility] [address] [id number] [place] [address] Aug, [facility] [address] [id number] [place] [address] Aug, [facility] [address] [id number] [place] [address] Aug, [facility] [address] [id number] [place] [address] Aug, [facility] [address] [id number] [place] [address] Aug, [facility] [address] [id number] [place] [address] Aug, [facility] [address] [id number] [place] [address] Jul, 2014 [facility] [address] [id number] [place] [address] Jul, [facility] [address] [id number] [place] [address] Jul, [facility] [address] [id number] [place] [address] Jul, [facility] [address] [id number] [place] [address] Jul, [facility] [address] [id number] [place] [address] Jul, [facility] [address] [id number] [place] [address] Jun, [facility] [address] [id number] [place] [address] Jun, [facility] [address] [id number] [place] [address] Jun, [facility] [address] [id number] [place] [address] Jun, [facility] [address] [id number] [place] [address] May, [facility] [address] [id number] [place] [address] May, [facility] [address] [id number] [place] [address] May, [facility] [address] [id number] [place] [address] May, [facility] [address] [id number] [place] [address] May, [facility] [address] [id number] [place] [address] May, [facility] [address] [id number] [place] [address] May, [facility] [address] [id number] [place] [address] May, [facility] [address] [id number] [place] [address] May, [facility] [address] [id number] [place] [address] May, [facility] [address] [id number] [place] [address] Apr, [facility] [address] [id number] [place] [address] Apr, [facility] [address] [id number] [place] [address] Apr, [facility] [address] [id number] [place] [address] Apr, [facility] [address] [id number] [place] [address] Apr, [facility] [address] [id number] [place] [address] Apr, [facility] [address] [id number] [place] [address] Apr, [facility] [address] [id number] [place] [address] Apr, [facility] [address] [id number] [place] [address] Apr, [facility] [address] [id number] [place] [address] Mar, [facility] [address] [id number] [place] [address] Mar, [facility] [address] [id number] [place] [address] Mar, [facility] [address] [id number] [place] [address] Mar, [facility] [address] [id number] [place] [address] Mar, [facility] [address] [id number] [place] [address] Mar, [facility] [address] [id number] [place] [address] Mar, [facility] [address] [id number] [place] [address] Mar, [facility] [address] [id number] [place] [address] Feb, [facility] [address] [id number] [place] [address] 30 Sep, 2013 [facility] [address] [id number] [place] [address] 24 Feb, 2013 [facility] [address] [id number] [place] [address] 24 Feb, 2013 [facility] [address] [id number] [place] [address] 22 Feb, 2013 [facility] [address] [facility] [id number] [place] [address] 22 Feb, 2013 [facility] [address] [id number] [place] [address] 10 Feb, 2013 [facility] [address] [id number] [place] [address] 10 Feb, 2013 [facility] [address] [id number] [place] [address] Sep, 2013 [facility] [address] [id number] [place] [address] Sep, 2013 [facility] [address] [id number] [place] [address] Feb, 2013 [facility] [address] [id number] [place] [address] Feb, 2013 [facility] [address] [id number] [place] [address] Feb, 2013 [facility] [address] [id number] [place] [address] Feb, 2013 [facility] [address] [id number] [place] [address] Jan, [facility] [address] [id number] [place] [address] Jan, 2013 [facility] [address] [id number] [place] [address] Dec, 2013 [facility] [address] [id number] [place] [address] Dec, 2013 [facility] [address] [id number] [place] [address] Dec, 2013 [facility] [address] [facility] [id number] [place] [address] Dec, 2013 [facility] [address] [facility] [id number] [facility] [place] [place] [id number] Dec, 2013 [facility] [address] [facility] [id number] [place] [address] Dec, 2013 [facility] [address] [facility] [id number] [place] [address] Dec, 2013 [facility] [address] [facility] [id number] [place] [address] Dec, 2013 [facility] [address] [id number] [place] [address] Dec, 2013 [facility] [address] [id number] [place] [address] Dec, 2013 [facility] [address] [facility] [id number] [place] [address] Dec, 2013 [facility] [address] [id number] [place] [address] Dec, 2013 [facility] [address] [id number] [place] [address] Dec, 2013 [facility] [address] [id number] [place] [address] Dec, 2013 [facility] [address] [facility] [id number] [place] [address] Dec, 2013 [facility] [address] [facility] [id number] [place] [address] Dec, 2013 [facility] [address] [facility] [id number] [place] [address] Dec, 2013 [facility] [address] [id number] [place] [address] Dec, 2013 [facility] [address] [id number] [place] [address] Dec, [facility] [address] [id number] [place] [address] Nov, [facility] [address] [id number] [place] [address] Nov, [facility] [address] [id number] [place] [address] Nov, [facility] [address] [id number] [place] [address] Nov, [facility] [address] [id number] [place] [address] Nov, [facility] [address] [id number] [place] [address] Nov, [facility] [address] [id number] [place] [address] Nov, [facility] [address] [id number] [place] [address] Nov, [facility] [address] [id number] [place] [address] Nov, [facility] [address] [id number] [place] [address] October, [facility] [address] [id number] [place] [address] October, [facility] [address] [id number] [place] [address] October, [facility] [address] [id number] [place] [address] October, [facility] [address] [id number] [place] [address] October, [facility] [address] [id number] [place] [address] October, [facility] [address] [id number] [place] [address] October, [facility] [address] [id number] [place] [address] October, [facility] [address] [id number] [place] [address] Sep, [facility] [address] [id number] [place] [address] Sep, [facility] [address] [id number] [place] [address] Sep, [facility] [address] [id number] [place] [address] Sep, [facility] [address] [id number] [place] [address] Sep, [facility] [address] [id number] [place] [address] Sep, [facility] [address] [id number] [place] [address] Sep, [facility] [address] [id number] [place] [address] Aug, [facility] [address] [id number] [place] [address] Aug, [facility] [address] [id number] [place] [address] Aug, [facility] [address] [id number] [place] [address] Aug, [facility] [address] [id number] [place] [address] Aug, [facility] [address] [id number] [place] [address] Aug, [facility] [address] [id number] [place] [address] Jul, [facility] [address] [id number] [place] [address] Jul, [facility] [address] [id number] [place] [address] Jul, [facility] [address] [facility] [id number] [place] [address] Jul, [facility] [address] [id number] [place] [address] Jul, [facility] [address] [id number] [place] [address] Jul, [facility] [address] [id number] [place] [address] Jun, [facility] [address] [id number] [place] [address] Jun, [facility] [address] [id number] [place] [address] Jun, [facility] [address] [id number] [place] [address] Jun, [facility] [address] [id number] [place] [address] Jun, [facility] [address] [id number] [place] [address] Jun, [facility] [address] [id number] [place] [address] Jun, [facility] [address] [id number] [place] [address] Jun, [facility] [address] [id number] [place] [address] Jun, [facility] [address] [id number] [place] [address] Jun, [facility] [address] [id number] [place] [address] Jun, [facility] [address] [id number] [place] [address] Jun, [facility] [address] [id number] [place] [address] Jun, [facility] [address] [id number] [place] [address] 30 May, 2012 [facility] [address] [id number] [place] [address] May, [facility] [address] [id number] [place] [address] May, [facility] [address] [id number] [place] [address] May, [facility] [address] [id number] [place] [address] May, [facility] [address] [id number] [place] [address] 14 May, 2013 [facility] [address] [id number] [place] [address] 14 May, 2013 [facility] [address] [id number] [place] [address] May, [facility] [address] [id number] [place] [address] May, [facility] [address] [id number] [place] [address] May, [facility] [address] [id number] [place] [address] May, [facility] [address] [id number] [place] [address] May, [facility] [address] [id number] [place] [address] May, [facility] [address] [id number] [place] [address] 09 May, 2013 [facility] [address] [id number] [place] [address] May, [facility] [address] [id number] [place] [address] 08 May, 2013 [facility] [address] [id number] [place] [address] 07 May, 2013 [facility] [address] [id number] [place] [address] 06 May, 2012 [facility] [address] [id number] [place] [address] May, 2012 [facility] [address] [id number] [place] [address] May, 2012 [facility] [address] [id number] [place] [address] May, 2012 [facility] [address] [id number] [place] [address] Apr, [facility] [address] [id number] [place] [address] Apr, [facility] [address] [id number] [place] [address] Apr, [facility] [id number] [place] [address] Apr, [facility] [address] [id number] [place] [address] 08 Mar, 2013 [facility] [address] [id number] [place] [address] 23 Feb, 2012 [facility] [address] [id number] [place] [address] 16 Feb, 2012 [facility] [address] [id number] [place] [address] 13 Feb, 2012 [facility] [address] [id number] [place] [address] 10 Feb, 2012 [facility] [address] [id number] [place] [address] 09 Feb, 2012 [facility] [address] [id number] [place] [address] 09 Feb, 2012 [facility] [address] [id number] [place] [address] Jan, [facility] [address] [id number] [place] [address] Jan, [facility] [address] [facility] [id number] [place] [address] Jan, [facility] [address] [facility] [id number] [place] [address] Dec, [facility] [address] [id number] [place] [address] Dec, [facility] [address] [facility] [id number] [place] [address] Dec, [facility] [address] [facility] [id number] [place] [address] Dec, [facility] [address] [id number] [place] [address] Dec, [facility] [address] [id number] [place] [address] Nov, [facility] [address] [id number] [place] [address] Nov, [facility] [address] [id number] [place] [address] Nov, [facility] [address] [id number] [place] [address] Nov, [facility] [address] [id number] [place] [address] Nov, [facility] [address] [id number] [place] [address] Nov, [facility] [address] [facility] [id number] [place] [address] 07 Nov, 2012 [facility] [address] [id number] [place] [address] 06 Nov, 2012 [facility] [address] [id number] [place] [address] 05 Nov, 2012 [facility] [address] [id number] [place] [address] Nov, [facility] [address] [id number] [place] [address] October, [facility] [address] [id number] [place] [address] October, [facility] [address] [id number] [place] [address] Sep, [facility] [address] [id number] [place] [address] Sep, [facility] [address] [id number] [place] [address] Sep, [facility] [address] [id number] [place] [address] Sep, [facility] [address] [id number] [place] [address] Sep, [facility] [id number] [place] [address] Aug, [facility] [address] [id number] [place] [address] Aug, [facility] [address] [id number] [place] [address] Jul, [facility] [address] [id number] [place] [address] Jul, [facility] [address] [id number] [place] [address] Jun, [facility] [address] [id number] [place] [address] Jun, [facility] [address] [id number] [place] [address] May, [facility] [id number] [place] [address] May, [facility] [address] [id number] [place] [address] May, [facility] [address] [id number] [place] [address] May, [facility] [address] [id number] [place] [address] Apr, [facility] [address] [id number] [place] [address] Apr, [facility] [address] [id number] [place] [address] Apr, [facility] [address] [id number] [place] [address] Apr, [facility] [address] [id number] [place] [address] Apr, [facility] [address] [id number] [place] [address] Apr, [facility] [address] [id number] [place] [address] Apr, [facility] [address] [id number] [place] [address] Apr, [facility] [address] [id number] [place] [address] Apr, [facility] [address] [id number] [place] [address] Mar, [facility] [address] [id number] [place] [address] Mar, [facility] [address] [id number] [place] [address] Feb, [facility] [address] [id number] [place] [address] Jan, [facility] [address] [id number] [place] [address] Jan, [facility] [address] [id number] [place] [address] Dec, [facility] [address] [id number] [place] [address] Nov, [facility] [address] [id number] [place] [address] Nov, [facility] [address] [id number] [place] [address] October, [facility] [address] [id number] [place] [address] October, [facility] [address] [id number] [place] [address] Sep, [facility] [address] [id number] [place] [address] Sep, [facility] [address] [id number] [place] [address] May, [facility] [address] [id number] [place] [address] Apr, [facility] [address] [id number] [place] [address] Apr, [facility] [address] [id number] [place] [address] Apr, [facility] [address] [id number] [place] [address] 15 Apr, 2011 [facility] [address] [id number] [place] [address] 15 Apr, 2011 [facility] [address] [id number] [place] [address] Apr, [facility] [address] [id number] [place] [address] Apr, [facility] [address] [id number] [place] [address] Apr, [facility] [id number] [place] [address] Mar, [facility] [address] [id number] [place] [address] Mar, [facility] [address] [id number] [place] [address] Mar, [facility] [address] [facility] [id number] [place] [address] Mar, [facility] [place] [address] [id number] [place] [address] Mar, [facility] [place] [address] [id number] [place] [address] Mar, IMMUNIZATIONS No Known Immunizations SOCIAL HISTORY [...] Stomach surgeryx3 Hospitalization History Mental floor at [facility]
--- OUTSIDE RECORDS SUMMARY | 2019-12-24 19:49 | XMS REPORT ---
Author Author Trey ROA Organization [facility] Address [address] [place] [address] Care Team Providers Care Adjunct Physics Instructor Name Role Phone LATIA ROA Unavailable PROBLEMS Type Condition ICD9-CM Code [id number] Code Onset Dates Condition S tatus SNOMED Code Problem Nondependent 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 Ac tive 999188913 Problem Rheumatoid arthritis M06.9 Active 86562134 Problem Unspecified epilepsy without mention of intractable ep ilepsy G40.909 Active 54282379 Problem Depressive disorder F32.9 Active 59289178 Problem Esophageal reflux K21.9 Active 23 2491443 Problem Hyperlipidemia, unspecified E78.5 Ac tive 58835162 Problem Other chronic pain G89.29 Active 1 59427278 Problem Cough R05 Active 35609128 Problem Acquired hypothyroidism E03.9 Active 933653396 Problem Presbyopia H52.4 Active 46693117 Problem Unspecified open-angle glaucoma, stage unspecified H40.10X0 Feb, Active 28131350 Problem Insomnia G47.00 Active 744351845 Problem Arthralgia M25.50 Active 27534393 Problem Thyroid nodule E04.1 Active 95598 5005 Problem Anxiety disorder, unspecified F41.9 Active 857288800 Problem Chronic tension-type headache, intractable G44.221 Active 790000573 Problem Neuropathy G62.9 Active 345634737 Problem Multinodular goiter E04.2 Active 871534703 Problem Goiter E04.9 Active 0242571 Problem Carpal tunnel syndrome of left wrist G56.02 Active [id number] Problem Chronic obstructive pulmonary disease, unspecified COPD ty pe J44.9 Active 50452773 Problem BMI 40.0-44.9, adult Z68.41 Active 517290876 Problem Seasonal allergic rhinitis due to pollen J30.1 Active 48598369 Problem Right-sided low back pain without sciatica M54.5 Active 699630112 Problem Essential hypertension I10 Active 83800080 Problem Hypertension I10 Active 4722512 3 Problem Depression F32.9 Active 23188269 Problem Reactive airway disease with out complication, unspecified asthma severity, unspecified whether persistent J45.909 Active 077688502459 Problem Urge incontinence of urine N39.41 Act chen 71915645 Problem Abnormal laboratory test R89.9 Activ e 166876851 Problem COPD with exacerbation J44.1 Active 680805362 ALLERGIES No Information ENCOUNTERS Encounter Location Date Diagnosis [place] [address] [address] Apr, Bronchitis J40 [place] [address] [address] Apr, Acute gastritis without hemorrhage, unsp ecified gastritis type K29.00 [place] [address] [address] Mar, [place] [address] [address] Feb, [place] [address] [address] Feb, Mass of right side of neck R22.1 and Mul tinodular goiter E04.2 [facility] WALK [facility] [place] [address] [address] [place] [id number] [place] [address] Jan, Bronchitis J40 [place] [address] [address] October, Acquired hypothyroidism E03.9 [place] [address] [address] October, Acute gastritis without hemorrhage, unsp ecified gastritis type K29.00 ; Epigastric pain R10.13 ; Essential hypertension I10 ; Screening for colon cancer Z12.11 and BMI 40.0-44.9, adult Z68.41 [place] [address] [address] October, [facility] WALK IN [facility] [address] [place] [id number] [place] [address] October, Chest pain R07.9 and Morbid obesity E66.01 [facility] WALK IN [facility] [address] [address] Sep, Generalized abdominal pain R 10.84 ; Morbid obesity E66.01 ; Non-intractable vomiting with nausea, unspecified vomiting type R11.2 and Seasonal allergic rhinitis due to pollen J30.1 [facility] WALK IN [facility] [address] [address] Jul, COPD with exacerbation J44.1 ; Viral upper respiratory tract infection J06.9 and Morbid obesity E66.01 [facility] IN [place] [address] [address] Jun, Viral upper respiratory trac t infection J06.9 [place] [address] [address] Apr, Abnormal laboratory test R89.9 [place] [address] [address] Apr, Abnormal laboratory test R89.9 [place] [address] [address] Apr, Abnormal laboratory test R89.9 [place] [address] [address] Apr, [place] [address] [address] Apr, [place] [address] [address] Apr, Nonintractable episodic headache, unspec ified headache type R51 ; Urge incontinence of urine N39.41 ; BMI 40.0-44.9, adult Z68.41 ; Myalgia M79.10 and Acute cystitis without hematuria N30.00 [place] [address] [address] Mar, Nasal congestion R09.81 ; Low back pain M54.5 ; Reactive airway disease without complication, unspecified asthma severity, unspecified whether persistent J45.909 ; Other chronic pain G89.29 ; Acute cystitis with hematuria N30.01 and BMI 40.0-44.9, adult Z68.41 [place] [address] [address] Mar, Acute cystitis with hematuria N30.01 [facility] WALK IN [facility] [address] [facility] [id number] [address] [place] [address] Mar, BMI 40.0-44.9, adult Z68.41 ; Acute cystitis with hematuria N30.01 ; Acute bilateral low back pain without sciatica M54.5 and Nausea R11.0 [place] [address] [address] Mar, Hypertension I10 ; Acquired hypothyroidi sm E03.9 ; Esophageal reflux K21.9 ; Chronic obstructive pulmonary disease, unspecified COPD type J44.9 and BMI 40.0-44.9, adult Z68.41 [place] [address] [address] Mar, Hypertension I10 [place] [address] [address] Nov, Hyperlipidemia, unspecified E78.[address] [address] October, Chest pain, unspecified type R07.9 and A cquired hypothyroidism E03.[address] [address] October, Chest pain, unspecified type R07.9 ; Fam demetrius history of coronary artery disease Z82.49 ; Carpal tunnel syndrome of left wrist G56.02 ; Hypertension I10 ; Esophageal reflux K21.9 ; Arthralgia M25.50 ; Acquired hypothyroidism E03.9 ; Cough R05 ; Nausea R11.0 ; Weight gain R63.5 and BMI 45.0-49.9, adult Z68.42 [place] [address] [address] Jun, Acquired hypothyroidism E03.9 and Cough R05 [place] [address] [address] May, [place] [address] [address] Feb, Tarsal tunnel syndrome of both lower ext remities G57.53 and Neuropathy G62.9 [place] [address] [address] Dec, Pleuritis R09.1 [place] [address] [address] Nov, [place] [address] [address] October, Arthralgia, unspecified joint M25.50 and Allergy, initial encounter T78.40XA [place] [address] [address] October, [address] [address] October, Acute recurrent maxillary sinusitis J01. 01 and Arthralgia M25.[address] [address] Sep, Pharyngitis due to other organism J02.8 [place] [address] [address] Aug, Acute nasopharyngitis J00 [place] [address] [address] Aug, Multinodular goiter E04.2 [place] [address] [address] Aug, Thyroid nodule E04.1 [place] [address] [address] Jul, Tarsal tunnel syndrome of both lower ext remities G57.53 [place] [address] [address] Jun, Pneumonia due to infectious organism, un specified laterality, unspecified part of lung J18.9 [place] [address] [address] Jun, Bronchospasm with bronchitis, acute J20. 9 [place] [address] [address] May, Acute non-recurrent frontal sinusitis J0 1.10 [place] [address] [address] May, Flat foot [pes planus] (acquired), left foot M21.42 ; Flat foot [pes planus] (acquired), right foot M21.41 and Neuropathy G62.9 [place] [address] [address] Apr, Chronic tension-type headache, intractab le G44.221 ; Right lower quadrant abdominal pain R10.31 ; Cervicalgia M54.2 ; Acute gastritis without hemorrhage, unspecified gastritis type K29.00 and Hypertension I10 [place] [address] [address] Mar, Depression F32.9 and Anxiety disorder, u nspecified F41.9 [place] [address] [address] Feb, Depressive disorder F32.9 and Anxiety di sorder, unspecified F41.9 [place] [address] [address] Jan, Dysuria R30.0 ; Lower abdominal pain R10 .30 ; Acute bilateral low back pain without sciatica M54.5 ; Nausea and vomiting, unspecified intactability, vomiting of unspecified type R11.2 ; Pain in right foot M79.671 and Pain of left foot M79.672 [place] [address] [address] Dec, Urinary tract infection, site not specif ied N39.0 [facility] [address] [address] Dec, [facility] [address] [address] Nov, [facility] [address] [address] Nov, Dysuria R30.0 [facility] [address] [address] Nov, Dysuria R30.0 and Acute cystitis with he maturia N30.01 [facility] [address] [address] October, Nausea R11.0 [facility] [address] [address] October, Thyroid nodule E04.1 ; Carpal tunnel syn drome, left upper limb G56.02 ; Carpal tunnel syndrome, right upper limb G56.01 and Constipation, unspecified constipation type K59.00 [facility] [address] [address] October, [facility] [address] [address] October, Thyroid nodule E04.1 [facility] [address] [address] October, Cold thyroid nodule E04.1 [facility] [address] [address] October, [facility] [address] [address] Sep, Thyroid nodule E04.1 [facility] [address] [address] Sep, Thyroid nodule E04.1 [facility] [address] [address] Sep, Thyroid nodule E04.1 ; Hypertension I10 ; Esophageal reflux K21.9 and Hyperlipidemia, unspecified E78.5 [place] [address] [address] Aug, Other chronic pain G89.29 ; Sinusitis J3 2.9 and Hypertension I10 [place] [address] [address] Jul, [place] [address] [address] 15 Jul, [address] [address] 10 Jul, 2015 Insomnia G47.00 and Arthralgia M25.[address] [address] Jul, Depressive disorder F32.9 and Anxiety di sorder, unspecified F41.[address] [address] May, Right-sided low back pain without sciati ca M54.5 and Depression F32.[address] [address] Apr, Hematuria R31.[address] [address] Mar, Other chronic pain G89.29 [place] [address] [address] Mar, Other chronic pain G89.[address] [address] Feb, [address] [address] 22 Feb, 2015 Other chronic pain 338.29 ; Dysuria 788. 1 ; UTI (urinary tract infection) 599.0 ; Insomnia 780.52 ; Hot flashes 627.2 and Hypertension 401.9 [facility] [address] [place] [id number] [place] [address] Feb, Dysuria 788.1 [facility] [address] [place] [id number] [place] [address] Feb, [facility] [address] [place] [id number] [place] [address] Jan, [facility] [address] [place] [id number] [place] [address] Jan, [facility] [address] [place] [id number] [place] [address] Jan, Fibromyalgia 729.1 ; Hypertension 401.9 ; Dysthymia 300.4 and Hot flashes 627.2 [facility] [address] [place] [id number] [place] [address] Dec, [facility] [address] [place] [id number] [place] [address] Dec, [facility] [address] [place] [id number] [place] [address] Dec, [facility] [address] [place] [id number] [place] [address] Nov, Other chronic pain 338.29 [facility] [address] [place] [id number] [place] [address] October, [facility] [address] [place] [id number] [place] [address] October, [facility] [address] [place] [id number] [place] [address] Sep, [facility] [address] [place] [id number] [place] [address] Sep, [facility] [address] [place] [id number] [place] [address] Aug, [facility] [address] [place] [id number] [place] [address] Aug, [facility] [address] [place] [id number] [facility] [place] [address] Aug, [facility] [address] [facility] [id number] [facility] [place] [address] Aug, [facility] [address] [facility] [id number] [facility] [place] [address] Aug, [facility] [address] [id number] [facility] [place] [address] Aug, [facility] [address] [facility] [id number] [facility] [place] [address] Aug, [facility] [address] [facility] [id number] [facility] [place] [address] Aug, [facility] [address] [id number] [place] [address] Aug, [facility] [address] [id number] [place] [address] Aug, [facility] [address] [id number] [place] [address] Aug, [facility] [address] [facility] [id number] [place] [address] Aug, [facility] [address] [id number] [place] [address] Aug, [facility] [address] [id number] [place] [address] Aug, [facility] [address] [id number] [place] [address] Jul, 2014 [facility] [address] [facility] [id number] [facility] [place] [address] Jul, [facility] [address] [id number] [place] [address] Jul, 2014 [facility] [address] [facility] [id number] [place] [address] Jul, 2014 [facility] [address] [id number] [place] [address] Jul, [facility] [address] [id number] [place] [address] Jul, [facility] [address] [id number] [place] [address] Jun, [facility] [address] [id number] [place] [address] Jun, [facility] [address] [id number] [place] [address] Jun, [facility] [address] [id number] [place] [address] Jun, [facility] [address] [id number] [place] [address] May, [facility] [address] [id number] [place] [address] May, [facility] [address] [id number] [place] [address] May, [facility] [address] [id number] [place] [address] May, [facility] [address] [id number] [place] [address] May, [facility] [address] [id number] [place] [address] May, [facility] [address] [id number] [place] [address] May, [facility] [address] [id number] [place] [address] May, [facility] [address] [id number] [place] [address] May, [facility] [address] [id number] [place] [address] May, [facility] [address] [id number] [place] [address] Apr, [facility] [address] [id number] [place] [address] Apr, [facility] [address] [id number] [place] [address] Apr, [facility] [address] [id number] [place] [address] Apr, [facility] [address] [id number] [place] [address] Apr, [facility] [address] [id number] [place] [address] Apr, [facility] [address] [id number] [place] [address] Apr, [facility] [address] [id number] [place] [address] Apr, [facility] [address] [id number] [place] [address] Apr, [facility] [address] [id number] [place] [address] Mar, [facility] [address] [id number] [place] [address] Mar, [facility] [address] [id number] [place] [address] Mar, [facility] [address] [id number] [place] [address] Mar, [facility] [address] [id number] [place] [address] Mar, [facility] [address] [id number] [place] [address] Mar, [facility] [address] [id number] [place] [address] Mar, [facility] [address] [id number] [place] [address] Mar, [facility] [address] [id number] [place] [address] Feb, [facility] [address] [id number] [place] [address] 30 Sep, 2013 [facility] [address] [id number] [place] [address] 24 Feb, 2013 [facility] [address] [id number] [place] [address] 24 Feb, 2013 [facility] [address] [id number] [place] [address] 22 Feb, 2013 [facility] [address] [facility] [id number] [place] [address] 22 Feb, 2013 [facility] [address] [id number] [place] [address] 10 Feb, 2013 [facility] [address] [id number] [place] [address] 10 Feb, 2013 [facility] [address] [id number] [place] [address] Feb, 2013 [facility] [address] [id number] [place] [address] Feb, 2013 [facility] [address] [id number] [place] [address] Feb, 2013 [facility] [address] [id number] [place] [address] Feb, 2013 [facility] [address] [id number] [place] [address] Feb, 2013 [facility] [address] [id number] [place] [address] Feb, 2013 [facility] [address] [id number] [place] [address] Jan, [facility] [address] [id number] [place] [address] Jan, 2013 [facility] [address] [id number] [place] [address] Dec, [facility] [address] [id number] [place] [address] Dec, 2013 [facility] [address] [facility] [id number] [facility] [place] [address] Dec, 2013 [facility] [address] [facility] [id number] [facility] [place] [address] Dec, 2013 [facility] [address] [facility] [id number] [place] [id number] Dec, 2013 [facility] [address] [facility] [id number] [facility] [place] [address] Dec, 2013 [facility] [address] [facility] [id number] [place] [address] Dec, 2013 [facility] [address] [facility] [id number] [place] [address] Dec, 2013 [facility] [address] [id number] [place] [address] Dec, 2013 [facility] [address] [id number] [place] [address] Dec, 2013 [facility] [address] [facility] [id number] [place] [address] Dec, 2013 [facility] [address] [id number] [place] [address] Dec, 2013 [facility] [address] [id number] [place] [address] Dec, 2013 [facility] [address] [id number] [place] [address] Dec, 2013 [facility] [address] [facility] [id number] [place] [address] Dec, 2013 [facility] [address] [facility] [id number] [place] [address] Dec, 2013 [facility] [address] [facility] [id number] [place] [address] Dec, 2013 [facility] [address] [id number] [place] [address] Dec, 2013 [facility] [address] [id number] [facility] [place] [address] Dec, [facility] [address] [facility] [id number] [facility] [place] [address] Nov, [facility] [address] [facility] [id number] [place] [address] Nov, [facility] [address] [id number] [place] [address] Nov, [facility] [address] [facility] [id number] [place] [address] Nov, [facility] [address] [facility] [id number] [place] [address] Nov, [facility] [address] [id number] [place] [address] Nov, [facility] [address] [id number] [place] [address] Nov, [facility] [address] [id number] [place] [address] Nov, [facility] [address] [id number] [place] [address] Nov, [facility] [address] [id number] [place] [address] October, [facility] [address] [id number] [place] [address] October, [facility] [address] [id number] [place] [address] October, [facility] [address] [id number] [place] [address] October, [facility] [address] [id number] [place] [address] October, [facility] [address] [id number] [place] [address] October, [facility] [address] [id number] [place] [address] October, [facility] [address] [id number] [place] [address] October, [facility] [address] [id number] [place] [address] Sep, [facility] [address] [id number] [place] [address] Sep, [facility] [address] [id number] [place] [address] Sep, [facility] [address] [id number] [place] [address] Sep, [facility] [address] [id number] [place] [address] Sep, [facility] [address] [id number] [place] [address] Sep, [facility] [address] [id number] [place] [address] Sep, [facility] [address] [facility] [id number] [place] [address] Aug, [facility] [address] [id number] [place] [address] Aug, [facility] [address] [id number] [place] [address] Aug, [facility] [address] [id number] [place] [address] Aug, [facility] [address] [id number] [place] [address] Aug, [facility] [address] [id number] [place] [address] Aug, [facility] [address] [id number] [place] [address] Jul, [facility] [address] [id number] [place] [address] Jul, [facility] [address] [id number] [place] [address] Jul, [facility] [address] [facility] [id number] [place] [address] Jul, [facility] [address] [facility] [id number] [facility] [place] [address] Jul, [facility] [address] [facility] [id number] [place] [address] Jul, [facility] [address] [facility] [id number] [place] [address] Jun, [facility] [address] [facility] [id number] [place] [address] Jun, [facility] [address] [id number] [place] [address] Jun, [facility] [address] [id number] [place] [address] Jun, [facility] [address] [id number] [place] [address] Jun, [facility] [address] [id number] [place] [address] Jun, [facility] [address] [id number] [place] [address] Jun, [facility] [address] [id number] [place] [address] Jun, [facility] [address] [id number] [place] [address] Jun, [facility] [address] [facility] [id number] [place] [address] Jun, [facility] [address] [id number] [place] [address] Jun, [facility] [address] [id number] [place] [address] Jun, [facility] [address] [id number] [place] [address] Jun, [facility] [address] [id number] [place] [address] 30 May, 2012 [facility] [address] [id number] [place] [address] 30 May, 2012 [facility] [address] [id number] [place] [address] 30 May, 2013 [facility] [address] [id number] [place] [address] 30 May, 2013 [facility] [address] [id number] [place] [address] May, 2012 [facility] [address] [id number] [place] [address] 14 May, 2013 [facility] [address] [id number] [place] [address] 14 May, 2013 [facility] [address] [id number] [place] [address] 12 May, 2013 [facility] [address] [id number] [place] [address] 12 May, 2013 [facility] [address] [id number] [place] [address] May, [facility] [address] [id number] [place] [address] May, [facility] [address] [id number] [place] [address] 10 May, 2013 [facility] [address] [id number] [place] [address] 10 May, 2013 [facility] [address] [id number] [place] [address] 09 May, 2013 [facility] [address] [id number] [place] [address] 09 May, 2013 [facility] [address] [id number] [place] [address] 08 May, 2013 [facility] [address] [id number] [place] [address] 07 May, 2013 [facility] [address] [id number] [place] [address] 06 May, 2012 [facility] [address] [id number] [place] [address] May, 2012 [facility] [address] [id number] [place] [address] May, 2012 [facility] [address] [id number] [place] [address] May, 2012 [facility] [address] [id number] [place] [address] Apr, [facility] [address] [id number] [place] [address] Apr, [facility] [address] [id number] [place] [address] Apr, [facility] [id number] [place] [address] Apr, [facility] [address] [id number] [place] [address] 08 Mar, 2013 [facility] [address] [id number] [place] [address] 23 Feb, 2013 [facility] [address] [id number] [place] [address] 16 Feb, 2012 [facility] [address] [id number] [place] [address] 13 Feb, 2012 [facility] [address] [id number] [place] [address] 10 Feb, 2012 [facility] [address] [id number] [place] [address] 09 Feb, 2012 [facility] [address] [id number] [place] [address] 09 Feb, 2012 [facility] [address] [id number] [place] [address] Jan, [facility] [address] [id number] [place] [address] Jan, [facility] [address] [facility] [id number] [facility] [place] [address] Jan, [facility] [address] [facility] [id number] [facility] [place] [address] Dec, [facility] [address] [id number] [facility] [place] [address] Dec, [facility] [address] [facility] [id number] [facility] [place] [address] Dec, [facility] [address] [facility] [id number] [facility] [place] [address] Dec, [facility] [address] [id number] [place] [address] Dec, [facility] [address] [id number] [place] [address] Nov, [facility] [address] [id number] [place] [address] Nov, [facility] [address] [id number] [place] [address] Nov, [facility] [address] [id number] [place] [address] Nov, [facility] [address] [id number] [place] [address] Nov, [facility] [address] [id number] [place] [address] 08 Nov, 2012 [facility] [address] [id number] [place] [address] 07 Nov, 2012 [facility] [address] [id number] [place] [address] 06 Nov, 2012 [facility] [address] [id number] [place] [address] 05 Nov, 2012 [facility] [address] [id number] [place] [address] 04 Nov, 2012 [facility] [address] [id number] [place] [address] October, [facility] [address] [id number] [place] [address] October, [facility] [address] [id number] [place] [address] Sep, [facility] [address] [id number] [place] [address] Sep, [facility] [address] [id number] [place] [address] Sep, [facility] [address] [id number] [place] [address] Sep, [facility] [address] [id number] [place] [address] Sep, [facility] [address] [id number] [place] [address] Aug, [facility] [address] [id number] [place] [address] Aug, [facility] [address] [id number] [place] [address] Jul, [facility] [address] [id number] [place] [address] Jul, [facility] [address] [id number] [place] [address] Jun, [facility] [address] [id number] [place] [address] Jun, [facility] [address] [id number] [place] [address] May, [facility] [address] [id number] [place] [address] May, [facility] [address] [id number] [place] [address] May, [facility] [address] [id number] [place] [address] May, [facility] [address] [id number] [place] [address] Apr, [facility] [address] [id number] [place] [address] Apr, [facility] [address] [id number] [place] [address] Apr, [facility] [address] [id number] [place] [address] Apr, [facility] [address] [id number] [place] [address] Apr, [facility] [address] [id number] [place] [address] Apr, [facility] [address] [id number] [place] [address] Apr, [facility] [address] [id number] [place] [address] Apr, [facility] [address] [id number] [place] [address] Apr, [facility] [address] [id number] [place] [address] Mar, [facility] [address] [id number] [place] [address] Mar, [facility] [address] [id number] [place] [address] Feb, [facility] [address] [id number] [place] [address] Jan, [facility] [address] [id number] [place] [address] Jan, [facility] [address] [id number] [place] [address] Dec, [facility] [address] [id number] [place] [address] Nov, [facility] [address] [id number] [place] [address] Nov, [facility] [address] [id number] [place] [address] October, [facility] [address] [id number] [place] [address] October, [facility] [address] [id number] [place] [address] Sep, [facility] [address] [id number] [place] [address] Sep, [facility] [address] [id number] [place] [address] May, [facility] [address] [id number] [place] [address] Apr, [facility] [address] [id number] [place] [address] Apr, [facility] [address] [id number] [place] [address] Apr, [facility] [address] [id number] [place] [address] 15 Apr, 2011 [facility] [address] [id number] [place] [address] 15 Apr, 2011 [facility] [address] [id number] [place] [address] Apr, [facility] [address] [id number] [place] [address] Apr, [facility] [address] [id number] [place] [address] Apr, [facility] [address] [id number] [place] [address] Mar, [facility] [address] [id number] [place] [address] Mar, [facility] [address] [id number] [place] [address] Mar, [facility] [address] [facility] [id number] [place] [address] Mar[facility] [address] [id number] [place] [address] Mar, [facility] [address] [id number] [place] [address] Mar, IMMUNIZATIONS No Known Immunizations SOCIAL HISTORY [...] surgeryx3 Hospitalization History Mental floor at [facility]
--- OUTSIDE RECORDS SUMMARY | 2019-12-24 19:49 | XMS REPORT ---
Author Author Trey Lynn Organization [facility] Address [address] [place] [address] Care Team Providers Care Professor Of German Name Role Phone MEGHA Lynn Unavailable PROBLEMS Type Condition ICD9-CM Code [id number] Code Onset Dates Condition S tatus SNOMED Code Problem Nondependent 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 Ac tive 147947199 Problem Other chronic pain G89.29 Active 1 60995827 Problem Unspecified epilepsy without mention of intractable ep ilepsy G40.909 Active 52731178 Problem Hyperlipidemia, unspecified E78.5 Ac tive 16762215 Problem Hypertension I10 Active 5385187 3 Problem Esophageal reflux K21.9 Active 23 7826046 Problem Rheumatoid arthritis M06.9 Active 95126368 Problem Cough R05 Active 20702098 Problem Acquired hypothyroidism E03.9 Active 862660518 Problem Unspecified open-angle glaucoma, stage unspecified H40.10X0 Feb, Active 34866708 Problem Presbyopia H52.4 Active 00654731 Problem Insomnia G47.00 Active 440207957 Problem Arthralgia M25.50 Active 63503043 Problem Thyroid nodule E04.1 Active 21746 5005 Problem Anxiety disorder, unspecified F41.9 Active 452654992 Problem Chronic tension-type headache, intractable G44.221 Active 685557761 Problem Neuropathy G62.9 Active 600265048 Problem Goiter E04.9 Active 5848795 Problem Multinodular goiter E04.2 Active 428375216 Problem Carpal tunnel syndrome of left wrist G56.02 Active [id number] Problem Chronic obstructive pulmonary disease, unspecified COPD ty pe J44.9 Active 52407594 Problem BMI 40.0-44.9, adult Z68.41 Active 731259824 Problem Seasonal allergic rhinitis due to pollen J30.1 Active 77952040 Problem Depression F32.9 Active 50525632 Problem Essential hypertension I10 Active 75136608 Problem Depressive disorder F32.9 Active 00744292 Problem Right-sided low back pain without sciatica M54.5 Active 753124347 Problem Reactive airway disease with out complication, unspecified asthma severity, unspecified whether persistent J45.909 Active 022481518805 Problem Urge incontinence of urine N39.41 Act chen 55883468 Problem Abnormal laboratory test R89.9 Activ e 281255913 Problem COPD with exacerbation J44.1 Active 095261388 ALLERGIES No Information ENCOUNTERS Encounter Location Date Diagnosis [place] [address] [address] Apr, Bronchitis J40 [place] [address] [address] Apr, Acute gastritis without hemorrhage, unsp ecified gastritis type K29.00 [place] [address] [address] Mar, [place] [address] [address] Feb, [place] [address] [address] Feb, Mass of right side of neck R22.1 and Mul tinodular goiter E04.2 [facility] [place] [id number] [place] [address] Jan, Bronchitis J40 [place] [address] [address] October, Acquired hypothyroidism E03.9 [place] [address] [address] October, Acute gastritis without hemorrhage, unsp ecified gastritis type K29.00 ; Epigastric pain R10.13 ; Essential hypertension I10 ; Screening for colon cancer Z12.11 and BMI 40.0-44.9, adult Z68.41 [place] [address] [address] October, [facility] [address] [address] [address] October, Chest pain R07.9 and Morbid obesity E66.01 [facility] [address] [address] Sep, Generalized abdominal pain R 10.84 ; Morbid obesity E66.01 ; Non-intractable vomiting with nausea, unspecified vomiting type R11.2 and Seasonal allergic rhinitis due to pollen J30.1 [facility] [address] [address] Jul, COPD with exacerbation J44.1 ; Viral upper respiratory tract infection J06.9 and Morbid obesity E66.01 [facility] [address] [address] Jun, Viral upper respiratory trac t infection J06.9 [place] [address] [address] Apr, Abnormal laboratory test R89.9 [place] [address] [address] Apr, Abnormal laboratory test R89.9 [place] [address] [address] Apr, Abnormal laboratory test R89.9 [place] [address] [address] Apr, [place] [address] [address] Apr, [place] [address] [address] Apr, Nonintractable episodic headache, unspec ified headache type R51 ; Urge incontinence of urine N39.41 ; BMI 40.0-44.9, adult Z68.41 ; Myalgia M79.10 and Acute cystitis without hematuria N30.00 [place] [address] [address] Mar, Nasal congestion R09.81 ; Low back pain M54.5 ; Reactive airway disease without complication, unspecified asthma severity, unspecified whether persistent J45.909 ; Other chronic pain G89.29 ; Acute cystitis with hematuria N30.01 and BMI 40.0-44.9, adult Z68.41 [facility] [address] [address] Mar, Acute cystitis with hematuria N30.01 [facility] [address] [facility] [id number] [address] [place] [address] Mar, BMI 40.0-44.9, adult Z68.41 ; Acute cystitis with hematuria N30.01 ; Acute bilateral low back pain without sciatica M54.5 and Nausea R11.0 [place] [address] [address] Mar, Hypertension I10 ; Acquired hypothyroidi sm E03.9 ; Esophageal reflux K21.9 ; Chronic obstructive pulmonary disease, unspecified COPD type J44.9 and BMI 40.0-44.9, adult Z68.41 [place] [address] [address] Mar, Hypertension I10 [place] [address] [address] Nov, Hyperlipidemia, unspecified E78.[address] [address] October, Chest pain, unspecified type R07.9 and A cquired hypothyroidism E03.9 [place] [address] [address] October, Chest pain, unspecified type R07.9 ; Fam demetrius history of coronary artery disease Z82.49 ; Carpal tunnel syndrome of left wrist G56.02 ; Hypertension I10 ; Esophageal reflux K21.9 ; Arthralgia M25.50 ; Acquired hypothyroidism E03.9 ; Cough R05 ; Nausea R11.0 ; Weight gain R63.5 and BMI 45.0-49.9, adult Z68.42 [place] [address] [address] Jun, Acquired hypothyroidism E03.9 and Cough R05 [place] [address] [address] May, [place] [address] [address] Feb, Tarsal tunnel syndrome of both lower ext remities G57.53 and Neuropathy G62.9 [place] [address] [address] Dec, Pleuritis R09.1 [place] [address] [address] Nov, [place] [address] [address] October, Arthralgia, unspecified joint M25.50 and Allergy, initial encounter T78.40XA [place] [address] [address] October, [place] [address] [address] October, Acute recurrent maxillary sinusitis J01. 01 and Arthralgia M25.50 [place] [address] [address] Sep, Pharyngitis due to other organism J02.8 [place] [address] [address] Aug, Acute nasopharyngitis J00 [place] [address] [address] Aug, Multinodular goiter E04.2 [place] [address] [address] Aug, Thyroid nodule E04.1 [place] [address] [address] Jul, Tarsal tunnel syndrome of both lower ext remities G57.53 [place] [address] [address] Jun, Pneumonia due to infectious organism, un specified laterality, unspecified part of lung J18.9 [place] [address] [address] Jun, Bronchospasm with bronchitis, acute J20. 9 [place] [address] [address] May, Acute non-recurrent frontal sinusitis J0 1.10 [place] [address] [address] May, Flat foot [pes planus] (acquired), left foot M21.42 ; Flat foot [pes planus] (acquired), right foot M21.41 and Neuropathy G62.9 [place] [address] [address] Apr, Chronic tension-type headache, intractab le G44.221 ; Right lower quadrant abdominal pain R10.31 ; Cervicalgia M54.2 ; Acute gastritis without hemorrhage, unspecified gastritis type K29.00 and Hypertension I10 [address] [address] Mar, Depression F32.9 and Anxiety disorder, u nspecified F41.9 [place] [address] [address] Feb, Depressive disorder F32.9 and Anxiety di sorder, unspecified F41.9 [place] [address] [address] Jan, Dysuria R30.0 ; Lower abdominal pain R10 .30 ; Acute bilateral low back pain without sciatica M54.5 ; Nausea and vomiting, unspecified intactability, vomiting of unspecified type R11.2 ; Pain in right foot M79.671 and Pain of left foot M79.[address] [address] Dec, Urinary tract infection, site not specif ied N39.0 [facility] [address] [address] Dec, [facility] [address] [address] Nov, [facility] [address] [address] Nov, Dysuria R30.0 [facility] [address] [address] Nov, Dysuria R30.0 and Acute cystitis with he maturia N30.01 [facility] [address] [address] October, Nausea R11.0 [facility] [address] [address] October, Thyroid nodule E04.1 ; Carpal tunnel syn drome, left upper limb G56.02 ; Carpal tunnel syndrome, right upper limb G56.01 and Constipation, unspecified constipation type K59.00 [facility] [address] [address] October, [facility] [address] [address] October, Thyroid nodule E04.1 [facility] [address] [address] October, Cold thyroid nodule E04.1 [facility] [address] [address] October, [facility] [address] [address] Sep, Thyroid nodule E04.1 [facility] [address] [address] Sep, Thyroid nodule E04.1 [facility] [address] [address] Sep, Thyroid nodule E04.1 ; Hypertension I10 ; Esophageal reflux K21.9 and Hyperlipidemia, unspecified E78.5 [place] [address] [address] Aug, Other chronic pain G89.29 ; Sinusitis J3 2.9 and Hypertension I10 [place] [address] [address] Jul, [place] [address] [address] 15 Jul, [address] [address] 10 Jul, 2015 Insomnia G47.00 and Arthralgia M25.[address] [address] 10 Jul, 2015 Depressive disorder F32.9 and Anxiety di sorder, unspecified F41.[address] [address] May, Right-sided low back pain without sciati ca M54.5 and Depression F32.[address] [address] Apr, Hematuria R31.[address] [address] Mar, Other chronic pain G89.[address] [address] Mar, Other chronic pain G89.[address] [address] Feb, [address] [address] Feb, Other chronic pain 338.29 ; Dysuria 788. 1 ; UTI (urinary tract infection) 599.0 ; Insomnia 780.52 ; Hot flashes 627.[address] [facility] [address] [place] [id number] [place] [address] Feb, Dysuria 788.1 [facility] [address] [place] [id number] [place] [address] Feb, [facility] [address] [address] Jan, [facility] [address] [address] Jan, [facility] [address] [address] Jan, Fibromyalgia 729.1 ; Hypertension 401.9 ; Dysthymia 300.[address] [facility] [address] [address] Dec, [facility] [address] [address] Dec, [facility] [address] [place] [id number] [place] [address] Dec, [facility] [address] [address] Nov, Other chronic pain 338.29 [facility] [address] [place] [id number] [place] [address] October, [facility] [address] [address] October, [facility] [address] [place] [id number] [place] [address] Sep, [facility] [address] [address] Sep, [facility] [address] [place] [id number] [place] [address] Aug, [facility] [address] [address] Aug, [facility] [address] [id number] [place] [address] Aug, [facility] [address] [id number] [place] [address] Aug, [facility] [address] [id number] [place] [address] Aug, [facility] [address] [id number] [place] [address] Aug, [facility] [address] [id number] [place] [address] Aug, [facility] [address] [id number] [place] [address] Aug, [facility] [address] [id number] [place] [address] Aug, [facility] [address] [id number] [place] [address] Aug, [facility] [address] [id number] [place] [address] Aug, [facility] [address] [id number] [place] [address] Aug, [facility] [address] [id number] [place] [address] Aug, [facility] [address] [id number] [place] [address] Aug, [facility] [address] [id number] [place] [address] Jul, 2014 [facility] [address] [id number] [place] [address] Jul, [facility] [address] [id number] [place] [address] Jul, [facility] [address] [id number] [place] [address] Jul, [facility] [address] [id number] [place] [address] Jul, [facility] [address] [id number] [place] [address] Jul, [facility] [address] [id number] [place] [address] Jun, [facility] [address] [id number] [place] [address] Jun, [facility] [address] [id number] [place] [address] Jun, [facility] [address] [id number] [place] [address] Jun, [facility] [address] [id number] [place] [address] May, [facility] [address] [id number] [place] [address] May, [facility] [address] [id number] [place] [address] May, [facility] [address] [id number] [place] [address] May, [facility] [address] [id number] [place] [address] May, [facility] [address] [id number] [place] [address] May, [facility] [address] [id number] [place] [address] May, [facility] [address] [id number] [place] [address] May, [facility] [address] [id number] [place] [address] May, [facility] [address] [id number] [place] [address] May, [facility] [address] [id number] [place] [address] Apr, [facility] [address] [id number] [place] [address] Apr, [facility] [address] [id number] [place] [address] Apr, [facility] [address] [id number] [place] [address] Apr, [facility] [address] [id number] [place] [address] Apr, [facility] [address] [id number] [place] [address] Apr, [facility] [address] [id number] [place] [address] Apr, [facility] [address] [id number] [place] [address] Apr, [facility] [address] [id number] [place] [address] Apr, [facility] [address] [id number] [place] [address] Mar, [facility] [address] [id number] [place] [address] Mar, [facility] [address] [id number] [place] [address] Mar, [facility] [address] [id number] [place] [address] Mar, [facility] [address] [id number] [place] [address] Mar, [facility] [address] [id number] [place] [address] Mar, [facility] [address] [id number] [place] [address] Mar, [facility] [address] [id number] [place] [address] Mar, [facility] [address] [id number] [place] [address] Feb, [facility] [address] [id number] [place] [address] 30 Sep, 2013 [facility] [address] [id number] [place] [address] 24 Feb, 2013 [facility] [address] [id number] [place] [address] 24 Feb, 2013 [facility] [address] [id number] [place] [address] 22 Feb, 2013 [facility] [address] [facility] [id number] [place] [address] 22 Feb, 2013 [facility] [address] [id number] [place] [address] 10 Feb, 2013 [facility] [address] [id number] [place] [address] 10 Feb, 2013 [facility] [address] [id number] [place] [address] Sep, 2013 [facility] [address] [id number] [place] [address] Sep, 2013 [facility] [address] [id number] [place] [address] Feb, 2013 [facility] [address] [id number] [place] [address] Feb, 2013 [facility] [address] [id number] [place] [address] Feb, 2013 [facility] [address] [id number] [place] [address] Feb, 2013 [facility] [address] [id number] [place] [address] Jan, [facility] [address] [id number] [place] [address] Jan, 2013 [facility] [address] [id number] [place] [address] Dec, 2013 [facility] [address] [id number] [place] [address] Dec, 2013 [facility] [address] [id number] [facility] [place] [address] Dec, 2013 [facility] [address] [facility] [id number] [place] [address] Dec, 2013 [facility] [address] [facility] [id number] [facility] [place] [id number] Dec, 2013 [facility] [address] [facility] [id number] [place] [address] Dec, 2013 [facility] [address] [facility] [id number] [place] [address] Dec, 2013 [facility] [address] [facility] [id number] [place] [address] Dec, 2013 [facility] [address] [id number] [place] [address] Dec, 2013 [facility] [address] [id number] [place] [address] Dec, 2013 [facility] [address] [facility] [id number] [place] [address] Dec, 2013 [facility] [address] [id number] [place] [address] Dec, 2013 [facility] [address] [id number] [place] [address] Dec, 2013 [facility] [address] [id number] [place] [address] Dec, 2013 [facility] [address] [facility] [id number] [place] [address] Dec, 2013 [facility] [address] [facility] [id number] [place] [address] Dec, 2013 [facility] [address] [facility] [id number] [place] [address] Dec, 2013 [facility] [address] [id number] [place] [address] Dec, 2013 [facility] [address] [id number] [place] [address] Dec, [facility] [address] [id number] [place] [address] Nov, [facility] [address] [id number] [place] [address] Nov, [facility] [address] [id number] [place] [address] Nov, [facility] [address] [id number] [place] [address] Nov, [facility] [address] [id number] [place] [address] Nov, [facility] [address] [id number] [place] [address] Nov, [facility] [address] [id number] [place] [address] Nov, [facility] [address] [id number] [place] [address] Nov, [facility] [address] [id number] [place] [address] Nov, [facility] [address] [id number] [place] [address] October, [facility] [address] [id number] [place] [address] October, [facility] [address] [id number] [place] [address] October, [facility] [address] [id number] [place] [address] October, [facility] [address] [id number] [place] [address] October, [facility] [address] [id number] [place] [address] October, [facility] [address] [id number] [place] [address] October, [facility] [address] [id number] [place] [address] October, [facility] [address] [id number] [place] [address] Sep, [facility] [address] [id number] [place] [address] Sep, [facility] [address] [id number] [place] [address] Sep, [facility] [address] [id number] [place] [address] Sep, [facility] [address] [id number] [place] [address] Sep, [facility] [address] [id number] [place] [address] Sep, [facility] [address] [id number] [place] [address] Sep, [facility] [address] [id number] [place] [address] Aug, [facility] [address] [id number] [place] [address] Aug, [facility] [address] [id number] [place] [address] Aug, [facility] [address] [id number] [place] [address] Aug, [facility] [address] [id number] [place] [address] Aug, [facility] [address] [id number] [place] [address] Aug, [facility] [address] [id number] [place] [address] Jul, [facility] [address] [id number] [place] [address] Jul, [facility] [address] [id number] [place] [address] Jul, [facility] [address] [facility] [id number] [place] [address] Jul, [facility] [address] [id number] [place] [address] Jul, [facility] [address] [id number] [place] [address] Jul, [facility] [address] [id number] [place] [address] Jun, [facility] [address] [id number] [place] [address] Jun, [facility] [address] [id number] [place] [address] Jun, [facility] [address] [id number] [place] [address] Jun, [facility] [address] [id number] [place] [address] Jun, [facility] [address] [id number] [place] [address] Jun, [facility] [address] [id number] [place] [address] Jun, [facility] [address] [id number] [place] [address] Jun, [facility] [address] [id number] [place] [address] Jun, [facility] [address] [id number] [place] [address] Jun, [facility] [address] [id number] [place] [address] Jun, [facility] [address] [id number] [place] [address] Jun, [facility] [address] [id number] [place] [address] Jun, [facility] [address] [id number] [place] [address] 30 May, 2012 [facility] [address] [id number] [place] [address] May, [facility] [address] [id number] [place] [address] May, [facility] [address] [id number] [place] [address] May, [facility] [address] [id number] [place] [address] May, [facility] [address] [id number] [place] [address] 14 May, 2013 [facility] [address] [id number] [place] [address] 14 May, 2013 [facility] [address] [id number] [place] [address] May, [facility] [address] [id number] [place] [address] May, [facility] [address] [id number] [place] [address] May, [facility] [address] [id number] [place] [address] May, [facility] [address] [id number] [place] [address] May, [facility] [address] [id number] [place] [address] May, [facility] [address] [id number] [place] [address] 09 May, 2013 [facility] [address] [id number] [place] [address] May, [facility] [address] [id number] [place] [address] 08 May, 2013 [facility] [address] [id number] [place] [address] 07 May, 2013 [facility] [address] [id number] [place] [address] 06 May, 2012 [facility] [address] [id number] [place] [address] May, 2012 [facility] [address] [id number] [place] [address] May, 2012 [facility] [address] [id number] [place] [address] May, 2012 [facility] [address] [id number] [place] [address] Apr, [facility] [address] [id number] [place] [address] Apr, [facility] [address] [id number] [place] [address] Apr, [facility] [id number] [place] [address] Apr, [facility] [address] [id number] [place] [address] 08 Mar, 2013 [facility] [address] [id number] [place] [address] 23 Feb, 2012 [facility] [address] [id number] [place] [address] 16 Feb, 2012 [facility] [address] [id number] [place] [address] 13 Feb, 2012 [facility] [address] [id number] [place] [address] 10 Feb, 2012 [facility] [address] [id number] [place] [address] 09 Feb, 2012 [facility] [address] [id number] [place] [address] 09 Feb, 2012 [facility] [address] [id number] [place] [address] Jan, [facility] [address] [id number] [place] [address] Jan, [facility] [address] [facility] [id number] [facility] [place] [address] Jan, [facility] [address] [facility] [id number] [facility] [place] [address] Dec, [facility] [address] [id number] [facility] [place] [address] Dec, [facility] [address] [facility] [id number] [facility] [place] [address] Dec, [facility] [address] [facility] [id number] [facility] [place] [address] Dec, [facility] [address] [id number] [place] [address] Dec, [facility] [address] [id number] [place] [address] Nov, [facility] [address] [id number] [place] [address] Nov, [facility] [address] [id number] [place] [address] Nov, [facility] [address] [id number] [place] [address] Nov, [facility] [address] [id number] [place] [address] Nov, [facility] [address] [id number] [place] [address] Nov, [facility] [address] [facility] [id number] [place] [address] 07 Nov, 2012 [facility] [address] [id number] [place] [address] 06 Nov, 2012 [facility] [address] [id number] [place] [address] 05 Nov, 2012 [facility] [address] [id number] [place] [address] Nov, [facility] [address] [id number] [place] [address] October, [facility] [address] [id number] [place] [address] October, [facility] [address] [id number] [place] [address] Sep, [facility] [address] [id number] [place] [address] Sep, [facility] [address] [id number] [place] [address] Sep, [facility] [address] [id number] [place] [address] Sep, [facility] [address] [id number] [place] [address] Sep, [facility] [id number] [place] [address] Aug, [facility] [address] [id number] [place] [address] Aug, [facility] [address] [id number] [place] [address] Jul, [facility] [address] [id number] [place] [address] Jul, [facility] [address] [id number] [place] [address] Jun, [facility] [address] [id number] [place] [address] Jun, [facility] [address] [id number] [place] [address] May, [facility] [id number] [place] [address] May, [facility] [address] [id number] [place] [address] May, [facility] [address] [id number] [place] [address] May, [facility] [address] [id number] [place] [address] Apr, [facility] [address] [id number] [place] [address] Apr, [facility] [address] [id number] [place] [address] Apr, [facility] [address] [id number] [place] [address] Apr, [facility] [address] [id number] [place] [address] Apr, [facility] [address] [id number] [place] [address] Apr, [facility] [address] [id number] [place] [address] Apr, [facility] [address] [id number] [place] [address] Apr, [facility] [address] [id number] [place] [address] Apr, [facility] [address] [id number] [place] [address] Mar, [facility] [address] [id number] [place] [address] Mar, [facility] [address] [id number] [place] [address] Feb, [facility] [address] [id number] [place] [address] Jan, [facility] [address] [id number] [place] [address] Jan, [facility] [address] [id number] [place] [address] Dec, [facility] [address] [id number] [place] [address] Nov, [facility] [address] [id number] [place] [address] Nov, [facility] [address] [id number] [place] [address] October, [facility] [address] [id number] [place] [address] October, [facility] [address] [id number] [place] [address] Sep, [facility] [address] [id number] [place] [address] Sep, [facility] [address] [id number] [place] [address] May, [facility] [address] [id number] [place] [address] Apr, [facility] [address] [id number] [place] [address] Apr, [facility] [address] [id number] [place] [address] Apr, [facility] [address] [id number] [place] [address] 15 Apr, 2011 [facility] [address] [id number] [place] [address] 15 Apr, 2011 [facility] [address] [id number] [place] [address] Apr, [facility] [address] [id number] [place] [address] Apr, [facility] [address] [id number] [place] [address] Apr, [facility] [id number] [place] [address] Mar, [facility] [address] [id number] [place] [address] Mar, [facility] [address] [id number] [place] [address] Mar, [facility] [address] [facility] [id number] [place] [address] Mar, [facility] [address] [id number] [place] [address] Mar, [facility] [address] [id number] [place] [address] Mar, IMMUNIZATIONS No Known Immunizations SOCIAL HISTORY [...] Stomach surgeryx3 Hospitalization History Mental floor at [facility]
--- OUTSIDE RECORDS SUMMARY | 2019-12-24 19:49 | XMS REPORT ---
Author Author Trey ANDRADE Organization [facility] Address [address] [place] [address] Care Team Providers Care Licensed Marriage And Family Therapist Name Role Phone SURESH ANDRADE Unavailable PROBLEMS Type Condition ICD9-CM Code ORK04-BG Code Onset Dates Condition S tatus SNOMED Code Problem Nondependent 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 Ac tive 329314601 Problem Other chronic pain G89.29 Active 1 90364878 Problem Unspecified epilepsy without mention of intractable ep ilepsy G40.909 Active 97422211 Problem Hyperlipidemia, unspecified E78.5 Ac tive 37708023 Problem Hypertension I10 Active 7728530 3 Problem Esophageal reflux K21.9 Active 23 3895656 Problem Rheumatoid arthritis M06.9 Active 08856705 Problem Cough R05 Active 38521879 Problem Acquired hypothyroidism E03.9 Active 541144521 Problem Unspecified open-angle glaucoma, stage unspecified H40.10X0 Feb, Active 24798808 Problem Presbyopia H52.4 Active 80908041 Problem Insomnia G47.00 Active 751244413 Problem Arthralgia M25.50 Active 51419365 Problem Thyroid nodule E04.1 Active 73637 5005 Problem Anxiety disorder, unspecified F41.9 Active 012930060 Problem Chronic tension-type headache, intractable G44.221 Active 965992275 Problem Neuropathy G62.9 Active 508291078 Problem Goiter E04.9 Active 5260462 Problem Multinodular goiter E04.2 Active 169807269 Problem Carpal tunnel syndrome of left wrist G56.02 Active 104396223772630 Problem Chronic obstructive pulmonary disease, unspecified COPD ty pe J44.9 Active 28440588 Problem BMI 40.0-44.9, adult Z68.41 Active 509525123 Problem Seasonal allergic rhinitis due to pollen J30.1 Active 04287196 Problem Depression F32.9 Active 11313442 Problem Essential hypertension I10 Active 00690767 Problem Depressive disorder F32.9 Active 52445155 Problem Right-sided low back pain without sciatica M54.5 Active 031190266 Problem Reactive airway disease with out complication, unspecified asthma severity, unspecified whether persistent J45.909 Active 908130184588 Problem Urge incontinence of urine N39.41 Act chen 90475475 Problem Abnormal laboratory test R89.9 Activ e 581496377 Problem COPD with exacerbation J44.1 Active 602255230 ALLERGIES No Information ENCOUNTERS Encounter Location Date Diagnosis [place] [address] [address] Apr, Bronchitis J40 [place] [address] [address] Apr, Acute gastritis without hemorrhage, unsp ecified gastritis type K29.00 [place] [address] [address] Mar, [place] [address] [address] Feb, [place] [address] [address] Feb, Mass of right side of neck R22.1 and Mul tinodular goiter E04.2 [facility] [place] [id number] [place] [address] Jan, Bronchitis J40 [place] [address] [address] October, Acquired hypothyroidism E03.9 [place] [address] [address] October, Acute gastritis without hemorrhage, unsp ecified gastritis type K29.00 ; Epigastric pain R10.13 ; Essential hypertension I10 ; Screening for colon cancer Z12.11 and BMI 40.0-44.9, adult Z68.41 [place] [address] [address] October, [facility] [address] [address] October, Chest pain R07.9 and Morbid obesity E66.01 [facility] [address] [address] Sep, Generalized abdominal pain R 10.84 ; Morbid obesity E66.01 ; Non-intractable vomiting with nausea, unspecified vomiting type R11.2 and Seasonal allergic rhinitis due to pollen J30.1 [facility] [address] [address] Jul, COPD with exacerbation J44.1 ; Viral upper respiratory tract infection J06.9 and Morbid obesity E66.01 [facility] [address] [address] Jun, Viral upper respiratory trac t infection J06.9 [place] [address] [address] Apr, Abnormal laboratory test R89.9 [place] [address] [address] Apr, Abnormal laboratory test R89.9 [place] [address] [address] Apr, Abnormal laboratory test R89.9 [place] [address] [address] Apr, [place] [address] [address] Apr, [place] [address] [address] Apr, Nonintractable episodic headache, unspec ified headache type R51 ; Urge incontinence of urine N39.41 ; BMI 40.0-44.9, adult Z68.41 ; Myalgia M79.10 and Acute cystitis without hematuria N30.00 [place] [address] [address] Mar, Nasal congestion R09.81 ; Low back pain M54.5 ; Reactive airway disease without complication, unspecified asthma severity, unspecified whether persistent J45.909 ; Other chronic pain G89.29 ; Acute cystitis with hematuria N30.01 and BMI 40.0-44.9, adult Z68.41 [facility] [address] [address] Mar, Acute cystitis with hematuria N30.01 [facility] [address] [facility] [id number] [address] [place] [address] Mar, BMI 40.0-44.9, adult Z68.41 ; Acute cystitis with hematuria N30.01 ; Acute bilateral low back pain without sciatica M54.5 and Nausea R11.0 [place] [address] [address] Mar, Hypertension I10 ; Acquired hypothyroidi sm E03.9 ; Esophageal reflux K21.9 ; Chronic obstructive pulmonary disease, unspecified COPD type J44.9 and BMI 40.0-44.9, adult Z68.41 [place] [address] [address] Mar, Hypertension I10 [place] [address] [address] Nov, Hyperlipidemia, unspecified E78.[address] [address] October, Chest pain, unspecified type R07.9 and A cquired hypothyroidism E03.9 [place] [address] [address] October, Chest pain, unspecified type R07.9 ; Fam demetrius history of coronary artery disease Z82.49 ; Carpal tunnel syndrome of left wrist G56.02 ; Hypertension I10 ; Esophageal reflux K21.9 ; Arthralgia M25.50 ; Acquired hypothyroidism E03.9 ; Cough R05 ; Nausea R11.0 ; Weight gain R63.5 and BMI 45.0-49.9, adult Z68.42 [place] [address] [address] Jun, Acquired hypothyroidism E03.9 and Cough R05 [place] [address] [address] May, [place] [address] [address] Feb, Tarsal tunnel syndrome of both lower ext remities G57.53 and Neuropathy G62.9 [place] [address] [address] Dec, Pleuritis R09.1 [place] [address] [address] Nov, [place] [address] [address] October, Arthralgia, unspecified joint M25.50 and Allergy, initial encounter T78.40XA [place] [address] [address] October, [place] [address] [address] October, Acute recurrent maxillary sinusitis J01. 01 and Arthralgia M25.50 [place] [address] [address] Sep, Pharyngitis due to other organism J02.8 [place] [address] [address] Aug, Acute nasopharyngitis J00 [place] [address] [address] Aug, Multinodular goiter E04.2 [place] [address] [address] Aug, Thyroid nodule E04.1 [place] [address] [address] Jul, Tarsal tunnel syndrome of both lower ext remities G57.53 [place] [address] [address] Jun, Pneumonia due to infectious organism, un specified laterality, unspecified part of lung J18.9 [place] [address] [address] Jun, Bronchospasm with bronchitis, acute J20. 9 [place] [address] [address] May, Acute non-recurrent frontal sinusitis J0 1.10 [place] [address] [address] May, Flat foot [pes planus] (acquired), left foot M21.42 ; Flat foot [pes planus] (acquired), right foot M21.41 and Neuropathy G62.9 [place] [address] [address] Apr, Chronic tension-type headache, intractab le G44.221 ; Right lower quadrant abdominal pain R10.31 ; Cervicalgia M54.2 ; Acute gastritis without hemorrhage, unspecified gastritis type K29.00 and Hypertension I10 [address] [address] Mar, Depression F32.9 and Anxiety disorder, u nspecified F41.9 [place] [address] [address] Feb, Depressive disorder F32.9 and Anxiety di sorder, unspecified F41.9 [place] [address] [address] Jan, Dysuria R30.0 ; Lower abdominal pain R10 .30 ; Acute bilateral low back pain without sciatica M54.5 ; Nausea and vomiting, unspecified intactability, vomiting of unspecified type R11.2 ; Pain in right foot M79.671 and Pain of left foot M79.[address] [address] Dec, Urinary tract infection, site not specif ied N39.0 [facility] [address] [address] Dec, [facility] [address] [address] Nov, [facility] [address] [address] Nov, Dysuria R30.0 [facility] [address] [address] Nov, Dysuria R30.0 and Acute cystitis with he maturia N30.01 [facility] [address] [address] October, Nausea R11.0 [facility] [address] [address] October, Thyroid nodule E04.1 ; Carpal tunnel syn drome, left upper limb G56.02 ; Carpal tunnel syndrome, right upper limb G56.01 and Constipation, unspecified constipation type K59.00 [facility] [address] [address] October, [facility] [address] [address] October, Thyroid nodule E04.1 [facility] [address] [address] October, Cold thyroid nodule E04.1 [facility] [address] [address] October, [facility] [address] [address] Sep, Thyroid nodule E04.1 [facility] [address] [address] Sep, Thyroid nodule E04.1 [facility] [address] [address] Sep, Thyroid nodule E04.1 ; Hypertension I10 ; Esophageal reflux K21.9 and Hyperlipidemia, unspecified E78.5 [place] [address] [address] Aug, Other chronic pain G89.29 ; Sinusitis J3 2.9 and Hypertension I10 [place] [address] [address] Jul, [place] [address] [address] 15 Jul, [address] [address] 10 Jul, 2015 Insomnia G47.00 and Arthralgia M25.[address] [address] 10 Jul, 2015 Depressive disorder F32.9 and Anxiety di sorder, unspecified F41.[address] [address] May, Right-sided low back pain without sciati ca M54.5 and Depression F32.[address] [address] Apr, Hematuria R31.[address] [address] Mar, Other chronic pain G89.[address] [address] Mar, Other chronic pain G89.[address] [address] Feb, [address] [address] Feb, Other chronic pain 338.29 ; Dysuria 788. 1 ; UTI (urinary tract infection) 599.0 ; Insomnia 780.52 ; Hot flashes 627.2 and Hypertension 401.9 [facility] [address] [place] [id number] [place] [address] Feb, Dysuria 788.1 [facility] [address] [place] [id number] [place] [address] Feb, [facility] [address] [address] Jan, [facility] [address] [address] Jan, [facility] [address] [address] Jan, Fibromyalgia 729.1 ; Hypertension 401.9 ; Dysthymia 300.4 and Hot flashes 627.2 [facility] [address] [address] Dec, [facility] [address] [address] Dec, [facility] [address] [place] [id number] [place] [address] Dec, [facility] [address] [address] Nov, Other chronic pain 338.29 [facility] [address] [place] [id number] [place] [address] October, [facility] [address] [address] October, [facility] [address] [place] [id number] [place] [address] Sep, [facility] [address] [address] Sep, [facility] [address] [place] [id number] [place] [address] Aug, [facility] [address] [address] Aug, [facility] [address] [id number] [place] [address] Aug, [facility] [address] [facility] [id number] [place] [address] Aug, [facility] [address] [id number] [place] [address] Aug, [facility] [address] [id number] [place] [address] Aug, [facility] [address] [id number] [place] [address] Aug, [facility] [address] [id number] [place] [address] Aug, [facility] [address] [facility] [id number] [place] [address] Aug, [facility] [address] [facility] [id number] [place] [address] Aug, [facility] [address] [facility] [id number] [place] [address] Aug, [facility] [address] [facility] [id number] [place] [address] Aug, [facility] [address] [facility] [id number] [place] [address] Aug, [facility] [address] [facility] [id number] [place] [address] Aug, [facility] [address] [facility] [id number] [place] [address] Jul, 2014 [facility] [address] [id number] [place] [address] Jul, [facility] [address] [facility] [id number] [place] [address] Jul, [facility] [address] [facility] [id number] [place] [address] Jul, [facility] [address] [facility] [id number] [place] [address] Jul, [facility] [address] [facility] [id number] [place] [address] Jul, [facility] [address] [facility] [id number] [place] [address] Jun, [facility] [address] [facility] [id number] [place] [address] Jun, [facility] [address] [facility] [id number] [place] [address] Jun, [facility] [address] [facility] [id number] [place] [address] Jun, [facility] [address] [facility] [id number] [place] [address] May, [facility] [address] [facility] [id number] [place] [address] May, [facility] [address] [facility] [id number] [place] [address] May, [facility] [address] [facility] [id number] [place] [address] May, [facility] [address] [facility] [id number] [place] [address] May, [facility] [address] [facility] [id number] [place] [address] May, [facility] [address] [facility] [id number] [place] [address] May, [facility] [address] [facility] [id number] [place] [address] May, [facility] [address] [facility] [id number] [place] [address] May, [facility] [address] [facility] [id number] [place] [address] May, [facility] [address] [facility] [id number] [place] [address] Apr, [facility] [address] [facility] [id number] [place] [address] Apr, [facility] [address] [facility] [id number] [place] [address] Apr, [facility] [address] [id number] [place] [address] Apr, [facility] [address] [id number] [place] [address] Apr, [facility] [address] [id number] [place] [address] Apr, [facility] [address] [id number] [place] [address] Apr, [facility] [address] [id number] [place] [address] Apr, [facility] [address] [id number] [place] [address] Apr, [facility] [address] [id number] [place] [address] Mar, [facility] [address] [id number] [place] [address] Mar, [facility] [address] [id number] [place] [address] Mar, [facility] [address] [facility] [id number] [place] [address] Mar, [facility] [address] [id number] [place] [address] Mar, [facility] [address] [facility] [id number] [place] [address] Mar, [facility] [address] [id number] [place] [address] Mar, [facility] [address] [facility] [id number] [place] [address] Mar, [facility] [address] [facility] [id number] [place] [address] Feb, [facility] [address] [id number] [place] [address] 30 Sep, 2013 [facility] [address] [facility] [id number] [place] [address] 24 Feb, 2013 [facility] [address] [facility] [id number] [place] [address] 24 Feb, 2013 [facility] [address] [id number] [place] [address] 22 Feb, 2013 [facility] [address] [facility] [id number] [place] [address] 22 Feb, 2013 [facility] [address] [facility] [id number] [place] [address] 10 Feb, 2013 [facility] [address] [facility] [id number] [place] [address] 10 Feb, 2013 [facility] [address] [facility] [id number] [place] [address] Sep, 2013 [facility] [address] [facility] [id number] [place] [address] Sep, 2013 [facility] [address] [facility] [id number] [place] [address] Feb, 2013 [facility] [address] [facility] [id number] [place] [address] Feb, 2013 [facility] [address] [facility] [id number] [place] [address] Feb, 2013 [facility] [address] [facility] [id number] [place] [address] Feb, 2013 [facility] [address] [facility] [id number] [place] [address] Jan, [facility] [address] [facility] [id number] [place] [address] Jan, 2013 [facility] [address] [facility] [id number] [place] [address] Dec, 2013 [facility] [address] [facility] [id number] [place] [address] Dec, 2013 [facility] [address] [id number] [facility] [place] [address] Dec, 2013 [facility] [address] [facility] [id number] [place] [address] Dec, 2013 [facility] [address] [facility] [id number] [facility] [place] [id number] Dec, 2013 [facility] [address] [facility] [id number] [place] [address] Dec, 2013 [facility] [address] [facility] [id number] [place] [address] Dec, 2013 [facility] [address] [facility] [id number] [place] [address] Dec, 2013 [facility] [address] [id number] [place] [address] Dec, 2013 [facility] [address] [facility] [id number] [place] [address] Dec, 2013 [facility] [address] [facility] [id number] [place] [address] Dec, 2013 [facility] [address] [id number] [place] [address] Dec, 2013 [facility] [address] [facility] [id number] [place] [address] Dec, 2013 [facility] [address] [facility] [id number] [place] [address] Dec, 2013 [facility] [address] [facility] [id number] [place] [address] Dec, 2013 [facility] [address] [facility] [id number] [place] [address] Dec, 2013 [facility] [address] [facility] [id number] [place] [address] Dec, 2013 [facility] [address] [id number] [place] [address] Dec, 2013 [facility] [address] [facility] [id number] [place] [address] Dec, [facility] [address] [id number] [place] [address] Nov, [facility] [address] [id number] [place] [address] Nov, [facility] [address] [id number] [place] [address] Nov, [facility] [address] [facility] [id number] [place] [address] Nov, [facility] [address] [id number] [place] [address] Nov, [facility] [address] [id number] [place] [address] Nov, [facility] [address] [id number] [place] [address] Nov, [facility] [address] [id number] [place] [address] Nov, [facility] [id number] [place] [address] Nov, [facility] [id number] [place] [address] October, [facility] [id number] [place] [address] October, [facility] [id number] [place] [address] October, [facility] [id number] [place] [address] October, [facility] [id number] [place] [address] October, [facility] [id number] [place] [address] October, [facility] [id number] [place] [address] October, [facility] [id number] [place] [address] October, [facility] [id number] [place] [address] Sep, [facility] [id number] [place] [address] Sep, [facility] [id number] [place] [address] Sep, [facility] [id number] [place] [address] Sep, [facility] [id number] [place] [address] Sep, [facility] [id number] [place] [address] Sep, [facility] [id number] [place] [address] Sep, [facility] [id number] [place] [address] Aug, [facility] [id number] [place] [address] Aug, [facility] [id number] [place] [address] Aug, [facility] [id number] [place] [address] Aug, [facility] [id number] [place] [address] Aug, [facility] [id number] [place] [address] Aug, [facility] [id number] [place] [address] Jul, [facility] [id number] [place] [address] Jul, [facility] [id number] [place] [address] Jul, [facility] [address] [facility] [id number] [place] [address] Jul, [facility] [id number] [place] [address] Jul, [facility] [id number] [place] [address] Jul, [facility] [id number] [place] [address] Jun, [facility] [id number] [place] [address] Jun, [facility] [id number] [place] [address] Jun, [facility] [id number] [place] [address] Jun, [facility] [id number] [place] [address] Jun, [facility] [id number] [place] [address] Jun, [facility] [id number] [place] [address] Jun, [facility] [id number] [place] [address] Jun, [facility] [id number] [place] [address] Jun, [facility] [id number] [place] [address] Jun, [facility] [id number] [place] [address] Jun, [facility] [id number] [place] [address] Jun, [facility] [facility] [id number] [place] [address] Jun, [facility] [id number] [place] [address] 30 May, 2012 [facility] [id number] [place] [address] May, [facility] [id number] [place] [address] May, [facility] [id number] [place] [address] May, [facility] [id number] [place] [address] May, [facility] [id number] [place] [address] 14 May, 2013 [facility] [id number] [place] [address] 14 May, 2013 [facility] [id number] [place] [address] May, [facility] [id number] [place] [address] May, [facility] [id number] [place] [address] May, [facility] [id number] [place] [address] May, [facility] [id number] [place] [address] May, [facility] [id number] [place] [address] May, [facility] [id number] [place] [address] 09 May, 2013 [facility] [id number] [place] [address] May, [facility] [id number] [place] [address] 08 May, 2013 [facility] [id number] [place] [address] 07 May, 2013 [facility] [id number] [place] [address] 06 May, 2012 [facility] [id number] [place] [address] May, 2012 [facility] [id number] [place] [address] May, 2012 [facility] [id number] [place] [address] May, 2012 [facility] [id number] [place] [address] Apr, [facility] [id number] [place] [address] Apr, [facility] [id number] [place] [address] Apr, [facility] [id number] [place] [address] Apr, [facility] [id number] [place] [address] 08 Mar, 2013 [facility] [id number] [place] [address] 23 Feb, 2012 [facility] [id number] [place] [address] 16 Feb, 2012 [facility] [id number] [place] [address] 13 Feb, 2012 [facility] [id number] [place] [address] 10 Feb, 2012 [facility] [id number] [place] [address] 09 Feb, 2012 [facility] [id number] [place] [address] 09 Feb, 2012 [facility] [id number] [place] [address] Jan, [facility] [id number] [place] [address] Jan, [facility] [address] [id number] [facility] [place] [address] Jan, [facility] [address] [id number] [facility] [place] [address] Dec, [facility] [id number] [facility] [place] [address] Dec, [facility] [address] [id number] [facility] [place] [address] Dec, [facility] [address] [facility] [id number] [facility] [place] [address] Dec, [facility] [id number] [place] [address] Dec, [facility] [id number] [place] [address] Nov, [facility] [id number] [place] [address] Nov, [facility] [id number] [place] [address] Nov, [facility] [id number] [place] [address] Nov, [facility] [id number] [place] [address] Nov, [facility] [id number] [place] [address] Nov, [facility] [address] [facility] [id number] [place] [address] 07 Nov, 2012 [facility] [id number] [place] [address] 06 Nov, 2012 [facility] [id number] [place] [address] 05 Nov, 2012 [facility] [id number] [place] [address] Nov, [facility] [id number] [place] [address] October, [facility] [id number] [place] [address] October, [facility] [id number] [place] [address] Sep, [facility] [id number] [place] [address] Sep, [facility] [id number] [place] [address] Sep, [facility] [id number] [place] [address] Sep, [facility] [id number] [place] [address] Sep, [facility] [id number] [place] [address] Aug, [facility] [id number] [place] [address] Aug, [facility] [id number] [place] [address] Jul, [facility] [id number] [place] [address] Jul, [facility] [id number] [place] [address] Jun, [facility] [id number] [place] [address] Jun, [facility] [id number] [place] [address] May, [facility] [id number] [place] [address] May, [facility] [id number] [place] [address] May, [facility] [id number] [place] [address] May, [facility] [id number] [place] [address] Apr, [facility] [id number] [place] [address] Apr, [facility] [id number] [place] [address] Apr, [facility] [id number] [place] [address] Apr, [facility] [id number] [place] [address] Apr, [facility] [id number] [place] [address] Apr, [facility] [id number] [place] [address] Apr, [facility] [id number] [place] [address] Apr, [facility] [id number] [place] [address] Apr, [facility] [id number] [place] [address] Mar, [facility] [id number] [place] [address] Mar, [facility] [id number] [place] [address] Feb, [facility] [id number] [place] [address] Jan, [facility] [id number] [place] [address] Jan, [facility] [id number] [place] [address] Dec, [facility] [id number] [place] [address] Nov, [facility] [id number] [place] [address] Nov, [facility] [id number] [place] [address] October, [facility] [id number] [place] [address] October, [facility] [id number] [place] [address] Sep, [facility] [id number] [place] [address] Sep, [facility] [id number] [place] [address] May, [facility] [id number] [place] [address] Apr, [facility] [id number] [place] [address] Apr, [facility] [id number] [place] [address] Apr, [facility] [id number] [place] [address] 15 Apr, 2011 [facility] [id number] [place] [address] 15 Apr, 2011 [facility] [id number] [place] [address] Apr, [facility] [id number] [place] [address] Apr, [facility] [id number] [place] [address] Apr, [facility] [id number] [place] [address] Mar, [facility] [id number] [place] [address] Mar, [facility] [id number] [place] [address] Mar, [facility] [address] [facility] [id number] [place] [address] Mar, [facility] [id number] [place] [address] Mar, [facility] [id number] [place] [address] Mar, IMMUNIZATIONS No Known Immunizations SOCIAL HISTORY Never Assessed REASON FOR VISIT PLAN OF CARE VITAL SIGNS Height 62 in 2013-12-11 Weight 230.2 lbs 2013-12-11 Temperature 98.2 degrees Fahrenheit 2013-12-11 Heart Rate 88 bpm 2013-12-11 Respiratory Rate 18 2013-12-11 Blood pressure systolic 148 mmHg 2013-12-11 Blood pressure diastolic 86 mmHg 2013-12-11 MEDICATIONS Unknown Medications RESULTS No Results PROCEDURES Procedure Date Ordered Result Body Site VISIT December 11, 2013 VENIPUNCT, ROUTINE* December 11, 2013 C-REACTIVE PROTEIN December 11, 2013 ASSAY OF BLOOD/URIC ACID December 11, 2013 ANTISTREPTOLYSIN O, TITER December 11, 2013 ASSAY THYROID STIM HORMONE December 11, 2013 ASSAY OF MAGNESIUM December 11, 2013 LIPID PANEL December 11, 2013 COMPREHEN METABOLIC PANEL December 11, 2013 CHEST X-RAY December 11, 2013 COMPLETE CBC W/AUTO DIFF WBC December 11, 2013 ELECTROCARDIOGRAM, TRACING December 11, 2013 RHEUMATOID FACTOR, QUANT December 11, 2013 INSTRUCTIONS MEDICATIONS ADMINISTERED No Known Medications MEDICAL (GENERAL) HISTORY Type Description Date Medical History HTN Medical History Depression Medical History Arthritis Medical History COPD Surgical History Breast lump removed Surgical History Removal of cyst from ovary Surgical History cholecystectomy Surgical History Stomach surgeryx3 Hospitalization History Mental floor at [facility]
--- OUTSIDE RECORDS SUMMARY | 2019-12-24 19:50 | XMS REPORT ---
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 Name Role Phone MEGHA Lynn Unavailable PROBLEMS Type Condition ICD9-CM Code [id number] Code Onset Dates Condition S tatus SNOMED Code Problem Nondependent 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 Ac tive 240188091 Problem Other chronic pain G89.29 Active 1 59728348 Problem Unspecified epilepsy without mention of intractable ep ilepsy G40.909 Active 98726074 Problem Hyperlipidemia, unspecified E78.5 Ac tive 65998486 Problem Hypertension I10 Active 8911409 3 Problem Esophageal reflux K21.9 Active 23 9692895 Problem Rheumatoid arthritis M06.9 Active 53803959 Problem Cough R05 Active 55872475 Problem Acquired hypothyroidism E03.9 Active 798013134 Problem Unspecified open-angle glaucoma, stage unspecified H40.10X0 Feb, Active 41540675 Problem Presbyopia H52.4 Active 70034857 Problem Insomnia G47.00 Active 008615917 Problem Arthralgia M25.50 Active 29642962 Problem Thyroid nodule E04.1 Active 70807 5005 Problem Anxiety disorder, unspecified F41.9 Active 382871115 Problem Chronic tension-type headache, intractable G44.221 Active 219591215 Problem Neuropathy G62.9 Active 937339417 Problem Goiter E04.9 Active 2578960 Problem Multinodular goiter E04.2 Active 313532461 Problem Carpal tunnel syndrome of left wrist G56.02 Active [id number] Problem Chronic obstructive pulmonary disease, unspecified COPD ty pe J44.9 Active 94286755 Problem BMI 40.0-44.9, adult Z68.41 Active 190183526 Problem Seasonal allergic rhinitis due to pollen J30.1 Active 23666725 Problem Depression F32.9 Active 84459395 Problem Essential hypertension I10 Active 08851275 Problem Depressive disorder F32.9 Active 16060218 Problem Right-sided low back pain without sciatica M54.5 Active 576964120 Problem Reactive airway disease with out complication, unspecified asthma severity, unspecified whether persistent J45.909 Active 014753442222 Problem Urge incontinence of urine N39.41 Act chen 02034580 Problem Abnormal laboratory test R89.9 Activ e 366421655 Problem COPD with exacerbation J44.1 Active 806720585 ALLERGIES No Information ENCOUNTERS Encounter Location Date Diagnosis [place] [address] [address] Feb, [place] [address] [address] Feb, Mass of right side of neck R 22.1 and Multinodular goiter E04.2 [place] [address] [address] Jan, Bronchitis J40 [place] [address] [address] October, Acquired hypothyroidism E03. 9 [place] [address] [address] October, Acute gastritis without hemo rrhage, unspecified gastritis type K29.00 ; Epigastric pain R10.13 ; Essential hypertension I10 ; Screening for colon cancer Z12.11 and BMI 40.0-44.9, adult Z68.41 [place] [address] [address] October, [facility] [place] [address] [address] October, Chest pain R07.9 and Morbid obesity E66.01 [facility] [place] [address] [address] Sep, Generalized abdominal pain R 10.84 ; Morbid obesity E66.01 ; Non-intractable vomiting with nausea, unspecified vomiting type R11.2 and Seasonal allergic rhinitis due to pollen J30.1 [facility] [address] [id number] [address] [place] [address] Jul, COPD with exacerbation J44.1 ; Viral upper respiratory tract infection J06.9 and Morbid obesity E66.01 [facility] [address] [id number] [address] [place] [address] Jun, Viral upper respiratory trac t infection J06.9 [facility] [address] [id number] [address] [place] [address] Apr, Abnormal laboratory test R89 .9 [place] [address] [id number] [address] [place] [address] Apr, Abnormal laboratory test R89 .9 [place] [address] [place] [id number] [address] [place] [address] Apr, Abnormal laboratory test R89 .9 [place] [id number] [place] [address] Apr, [place] [address] [address] [place] [id number] [address] [place] [address] Apr, [place] [address] [address] Apr, Nonintractable episodic head ache, unspecified headache type R51 ; Urge incontinence of urine N39.41 ; BMI 40.0-44.9, adult Z68.41 ; Myalgia M79.10 and Acute cystitis without hematuria N30.00 [place] [address] [place] [id number] [address] [place] [address] Mar, Nasal congestion R09.81 ; Lo w back pain M54.5 ; Reactive airway disease without complication, unspecified asthma severity, unspecified whether persistent J45.909 ; Other chronic pain G89.29 ; Acute cystitis with hematuria N30.01 and BMI 40.0-44.9, adult Z68.41 [place] [address] [address] [place] [id number] [address] [place] [address] Mar, Acute cystitis with hematuri a N30.01 [facility] [address] [address] Mar, BMI 40.0-44.9, adult Z68.41 ; Acute cystitis with hematuria N30.01 ; Acute bilateral low back pain without sciatica M54.5 and Nausea R11.0 [place] [address] [address] Mar, Hypertension I10 ; Acquired hypothyroidism E03.9 ; Esophageal reflux K21.9 ; Chronic obstructive pulmonary disease, unspecified COPD type J44.9 and BMI 40.0-44.9, adult Z68.41 [place] [address] [address] 15 Mar, 2018 Hypertension I10 [place] [address] [address] Nov, Hyperlipidemia, unspecified E78.5 [place] [address] [address] October, Chest pain, unspecified type R07.9 and Acquired hypothyroidism E03.9 [place] [address] [address] October, Chest pain, unspecified type R07.9 ; Family history of coronary artery disease Z82.49 ; Carpal tunnel syndrome of left wrist G56.02 ; Hypertension I10 ; Esophageal reflux K21.9 ; Arthralgia M25.50 ; Acquired hypothyroidism E03.9 ; Cough R05 ; Nausea R11.0 ; Weight gain R63.5 and BMI 45.0-49.9, adult Z68.42 [place] [address] [address] Jun, Acquired hypothyroidism E03. 9 and Cough R05 [place] [address] [address] May, [place] [address] [place] [address] Feb, Tarsal tunnel syndrome of timi th lower extremities G57.53 and Neuropathy G62.9 [place] [address] [place] [id number] [address] [place] [address] Dec, Pleuritis R09.1 [place] [address] [address] Nov, [place] [address] [address] October, Arthralgia, unspecified join t M25.50 and Allergy, initial encounter T78.40XA [place] [address] [address] October, [place] [address] [address] October, Acute recurrent maxillary si nusitis J01.01 and Arthralgia M25.50 [place] [address] [place] [id number] [address] [place] [address] Sep, Pharyngitis due to other org anism J02.8 [place] [address] [place] [id number] [address] [place] [address] Aug, Acute nasopharyngitis J00 [place] [address] [address] Aug, Multinodular goiter E04.2 [place] [address] [place] [id number] [address] [place] [address] Aug, Thyroid nodule E04.1 [place] [address] [place] [id number] [address] [place] [address] Jul, Tarsal tunnel syndrome of timi th lower extremities G57.53 [place] [address] [place] [id number] [address] [place] [address] Jun, Pneumonia due to infectious organism, unspecified laterality, unspecified part of lung J18.9 [place] [address] [address] Jun, Bronchospasm with bronchitis , acute J20.9 [place] [address] [address] May, Acute non-recurrent frontal sinusitis J01.10 [place] [address] [address] May, Flat foot [pes planus] (acqu ired), left foot M21.42 ; Flat foot [pes planus] (acquired), right foot M21.41 and Neuropathy G62.9 [place] [address] [address] Apr, Chronic tension-type headach e, intractable G44.221 ; Right lower quadrant abdominal pain R10.31 ; Cervicalgia M54.2 ; Acute gastritis without hemorrhage, unspecified gastritis type K29.00 and Hypertension I10 [place] [address] [address] Mar, Depression F32.9 and Anxiety disorder, unspecified F41.9 [place] [address] [address] Feb, Depressive disorder F32.9 an d Anxiety disorder, unspecified F41.9 [place] [address] [address] Jan, Dysuria R30.0 ; Lower abdomi nal pain R10.30 ; Acute bilateral low back pain without sciatica M54.5 ; Nausea and vomiting, unspecified intactability, vomiting of unspecified type R11.2 ; Pain in right foot M79.671 and Pain of left foot M79.672 [place] [address] [address] Dec, Urinary tract infection, sit e not specified N39.0 [place] [id number] [id number] [address] [place] [address] Dec, [facility] [address] [id number] [address] [place] [address] Nov, [facility] [address] [id number] [address] [place] [address] Nov, Dysuria R30.0 [facility] [address] [id number] [address] [place] [address] Nov, Dysuria R30.0 and Acute cyst itis with hematuria N30.01 [facility] [address] [id number] [address] [place] [address] October, Nausea R11.0 [facility] [address] [id number] [address] [place] [address] October, Thyroid nodule E04.1 ; Carpa l tunnel syndrome, left upper limb G56.02 ; Carpal tunnel syndrome, right upper limb G56.01 and Constipation, unspecified constipation type K59.00 [facility] [address] [id number] [address] [place] [address] October, [facility] [address] [id number] [address] [place] [address] October, Thyroid nodule E04.1 [facility] [address] [id number] [address] [place] [address] October, Cold thyroid nodule E04.1 [facility] [address] [id number] [address] [place] [address] October, [facility] [address] [id number] [address] [place] [address] Sep, Thyroid nodule E04.1 [facility] [address] [id number] [address] [place] [address] Sep, Thyroid nodule E04.1 [facility] [address] [id number] [address] [place] [address] Sep, Thyroid nodule E04.1 ; Hyper tension I10 ; Esophageal reflux K21.9 and Hyperlipidemia, unspecified E78.5 [place] [address] [address] Aug, Other chronic pain G89.29 ; Sinusitis J32.9 and Hypertension I10 [place] [address] [address] 29 Jul, 2015 [place] [address] [address] 15 Jul, 2015 [place] [address] [address] 10 Jul, 2015 Insomnia G47.00 and Arthralg ia M25.50 [place] [address] [address] 10 Jul, 2015 Depressive disorder F32.9 an d Anxiety disorder, unspecified F41.9 [place] [address] [address] May, Right-sided low back pain wi thout sciatica M54.5 and Depression F32.9 [place] [address] [place] [id number] [address] [place] [address] Apr, Hematuria R31.9 [place] [address] [address] Mar, Other chronic pain G89.29 [place] [address] [address] Mar, Other chronic pain G89.29 [place] [address] [address] Feb, [place] [address] [address] Feb, Other chronic pain 338.29 ; Dysuria 788.1 ; UTI (urinary tract infection) 599.0 ; Insomnia 780.52 ; Hot flashes 627.2 and Hypertension 401.9 [facility] [address] [id number] [address] [place] [address] Feb, Dysuria 788.1 [facility] [address] [id number] [address] [place] [address] Feb, [facility] [address] [id number] [address] [place] [address] Jan, [facility] [address] [id number] [address] [place] [address] Jan, [facility] [address] [id number] [place] [address] Jan, Fibromyalgia 729.1 ; Hyperte nsion 401.9 ; Dysthymia 300.4 and Hot flashes 627.2 [facility] [address] [id number] [address] [place] [address] Dec, [facility] [address] [id number] [address] [place] [address] Dec, [facility] [address] [id number] [address] [place] [address] Dec, [facility] [address] [id number] [address] [place] [address] Nov, Other chronic pain 338.29 [facility] [address] [id number] [address] [place] [address] October, [facility] [address] [id number] [address] [place] [address] October, [facility] [address] [id number] [address] [place] [address] Sep, [facility] [address] [id number] [address] [place] [address] Sep, [facility] [address] [id number] [address] [place] [address] Aug, [facility] [address] [id number] [address] [place] [address], [place] [address] Aug, [facility] [address] [id number] [address] [place] [address], [place] [address] Aug, [facility] [address] [id number] [address] [place] [address], [place] [address] Aug, [facility] [address] [id number] [address] [place] [address], [place] [address] Aug, [facility] [address] [id number] [address] [place] [address], [place] [address] Aug, [facility] [address] [id number] [address] [place] [address], [place] [address] Aug, [facility] [address] [id number] [address] [place] [address], [place] [address] Aug, [facility] [address] [id number] [address] [place] [address], [place] [address] Aug, [facility] [address] [id number] [address] [place] [address], [place] [address] Aug, [facility] [address] [id number] [address] [place] [address], [place] [address] Aug, [facility] [address] [id number] [address] [place] [address], [place] [address] Aug, [facility] [address] [id number] [address] [place] [address], [place] [address] Aug, [facility] [address] [id number] [address] [place] [address], [place] [address] Aug, [facility] [address] [id number] [address] [place] [address], [place] [address] Jul, [facility] [address] [id number] [address] [place] [address], [place] [address] Jul, [facility] [address] [id number] [address] [place] [address], [place] [address] Jul, [facility] [address] [id number] [address] [place] [address], [place] [address] Jul, [facility] [address] [id number] [address] [place] [address], [place] [address] Jul, [facility] [address] [id number] [address] [place] [address], [place] [address] Jul, [facility] [address] [id number] [address] [place] [address], [place] [address] Jun, [facility] [address] [id number] [address] [place] [address], [place] [address] Jun, [facility] [address] [id number] [address] [place] [address], [place] [address] Jun, [facility] [address] [id number] [address] [place] [address], [place] [address] Jun, [facility] [address] [id number] [address] [place] [address], [place] [address] May, [facility] [address] [id number] [address] [place] [address], [place] [address] May, [facility] [address] [id number] [address] [place] [address], [place] [address] May, [facility] [address] [id number] [address] [place] [address], [place] [address] May, [facility] [address] [id number] [address] [place] [address], [place] [address] May, [facility] [address] [id number] [address] [place] [address], [place] [address] May, [facility] [address] [id number] [address] [place] [address], [place] [address] May, [facility] [address] [id number] [address] [place] [address], [place] [address] May, [facility] [address] [id number] [address] [place] [address], [place] [address] May, [facility] [address] [id number] [address] [place] [address], [place] [address] May, [facility] [address] [id number] [address] [place] [address], [place] [address] Apr, [facility] [address] [id number] [address] [place] [id number] Apr, [facility] [address] [id number] [address] [place] [address], [place] [address] Apr, [facility] [address] [id number] [address] [place] [address], [place] [address] Apr, [facility] [address] [id number] [address] [place] [address], [place] [address] Apr, [facility] [address] [id number] [address] [place] [address], [place] [address] Apr, [facility] [address] [id number] [address] [place] [address], [place] [address] Apr, [facility] [address] [id number] [address] [place] [address], [place] [address] Apr, [facility] [address] [id number] [address] [place] [address] Apr, [facility] [address] [id number] [address] [place] [address] Mar, [facility] [address] [id number] [address] [place] [address], [place] [address] Mar, [facility] [address] [id number] [address] [place] [address], [place] [address] Mar, [facility] [address] [id number] [address] [place] [address], [place] [address] Mar, [facility] [address] [id number] [address] [place] [address], [place] [address] 08 Mar, 2013 [facility] [address] [id number] [address] [place] [address], [place] [address] Mar, [facility] [address] [id number] [address] [place] [address], [place] [address] Mar, [facility] [address] [id number] [address] [place] [address], [place] [address] 08 Mar, 2014 [facility] [address] [id number] [address] [place] [address], [place] [address] 30 Feb, 2013 [facility] [address] [id number] [address] [place] [address], [place] [address] 30 Feb, 2013 [facility] [address] [id number] [address] [place] [address], [place] [address] 24 Feb, 2013 [facility] [address] [id number] [address] [place] [address], [place] [address] 24 Feb, 2013 [facility] [address] [id number] [address] [place] [address], [place] [address] 22 Feb, 2013 [facility] [address] [id number] [address] [place] [address], [place] [address] 22 Feb, 2013 [facility] [address] [id number] [address] [place] [address], [place] [address] 10 Feb, 2013 [facility] [address] [id number] [address] [place] [address], [place] [address] 10 Feb, 2013 [facility] [address] [id number] [address] [place] [address], [place] [address] 03 Sep, 2013 [facility] [address] [id number] [address] [place] [address], [place] [address] 03 Sep, 2013 [facility] [address] [id number] [address] [place] [address], [place] [address] 03 Feb, 2013 [facility] [address] [id number] [address] [place] [address], [place] [address] Feb, [facility] [address] [id number] [address] [place] [address], [place] [address] Feb, [facility] [address] [id number] [address] [place] [address], [place] [address] Feb, [facility] [address] [id number] [address] [place] [address], [place] [address] Jan, [facility] [address] [id number] [address] [place] [address], [place] [address] Jan, [facility] [address] [id number] [address] [place] [address], [place] [address] Dec, [facility] [address] [id number] [address] [place] [address], [place] [address] Dec, [facility] [address] [id number] [address] [place] [address], [place] [address] Dec, [facility] [address] [id number] [address] [place] [address], [place] [address] Dec, [facility] [address] [id number] [address] [place] [address], [place] [id number] Dec, [facility] [address] [id number] [address] [place] [address], [place] [address] Dec, [facility] [address] [id number] [address] [place] [address], [place] [address] Dec, [facility] [address] [id number] [address] [place] [address], [place] [address] Dec, [facility] [address] [id number] [address] [place] [address], [place] [address] Dec, [facility] [address] [id number] [address] [place] [address], [place] [address] Dec, [facility] [address] [id number] [address] [place] [address], [place] [address] Dec, [facility] [address] [id number] [address] [place] [address], [place] [address] Dec, 2013 [facility] [address] [id number] [address] [place] [address], [place] [address] Dec, 2013 [facility] [address] [id number] [address] [place] [address], [place] [address] Dec, 2013 [facility] [address] [id number] [address] [place] [address], [place] [address] Dec, 2013 [facility] [address] [id number] [address] [place] [address], [place] [address] Dec, 2013 [facility] [address] [id number] [address] [place] [address], [place] [address] Dec, 2013 [facility] [address] [id number] [address] [place] [address], [place] [address] Dec, [facility] [address] [id number] [address] [place] [address], [place] [address] Dec, [facility] [address] [id number] [address] [place] [address], [place] [address] Nov, [facility] [address] [id number] [address] [place] [address], [place] [address] Nov, [facility] [address] [id number] [address] [place] [address], [place] [address] Nov, [facility] [address] [id number] [address] [place] [address], [place] [address] Nov, [facility] [address] [id number] [address] [place] [address], [place] [address] Nov, [facility] [address] [id number] [address] [place] [address], [place] [address] Nov, [facility] [address] [id number] [address] [place] [address], [place] [address] Nov, [facility] [address] [id number] [address] [place] [address], [place] [address] Nov, [facility] [address] [id number] [address] [place] [address], [place] [address] Nov, [facility] [address] [id number] [address] [place] [address], [place] [address] October, [facility] [address] [id number] [address] [place] [address], [place] [address] October, [facility] [address] [id number] [address] [place] [address], [place] [address] October, [facility] [address] [id number] [address] [place] [address], [place] [address] October, [facility] [address] [id number] [address] [place] [address], [place] [address] October, [facility] [address] [id number] [address] [place] [address], [place] [address] October, [facility] [address] [id number] [address] [place] [address], [place] [address] October, [facility] [address] [id number] [address] [place] [address], [place] [address] October, [facility] [address] [id number] [address] [place] [address], [place] [address] Sep, [facility] [address] [id number] [address] [place] [address], [place] [address] Sep, [facility] [address] [id number] [address] [place] [address], [place] [address] Sep, [facility] [address] [id number] [address] [place] [address], [place] [address] Sep, [facility] [address] [id number] [address] [place] [address], [place] [address] Sep, [facility] [address] [id number] [address] [place] [address], [place] [address] Sep, [facility] [address] [id number] [address] [place] [address], [place] [address] Sep, [facility] [address] [id number] [address] [place] [address], [place] [address] Aug, [facility] [address] [id number] [address] [place] [address], [place] [address] Aug, [facility] [address] [id number] [address] [place] [address], [place] [address] Aug, [facility] [address] [id number] [address] [place] [address], [place] [address] Aug, [facility] [address] [id number] [address] [place] [address], [place] [address] Aug, [facility] [address] [id number] [address] [place] [address], [place] [address] Aug, [facility] [address] [id number] [address] [place] [address], [place] [address] Jul, [facility] [address] [id number] [address] [place] [address], [place] [address] Jul, [facility] [address] [id number] [address] [place] [address], [place] [address] Jul, [facility] [address] [id number] [address] [place] [address], [place] [address] Jul, [facility] [address] [id number] [address] [place] [address], [place] [address] Jul, [facility] [address] [id number] [address] [place] [address], [place] [address] Jul, [facility] [address] [id number] [address] [place] [address], [place] [address] Jun, [facility] [address] [id number] [address] [place] [address], [place] [address] Jun, [facility] [address] [id number] [address] [place] [address], [place] [address] Jun, [facility] [address] [id number] [address] [place] [address], [place] [address] Jun, [facility] [address] [id number] [address] [place] [address], [place] [address] Jun, [facility] [address] [id number] [address] [place] [address], [place] [address] Jun, [facility] [address] [id number] [address] [place] [address], [place] [address] Jun, [facility] [address] [id number] [address] [place] [address], [place] [address] Jun, [facility] [address] [id number] [address] [place] [address], [place] [address] Jun, [facility] [address] [id number] [address] [place] [address], [place] [address] Jun, [facility] [address] [id number] [address] [place] [address], [place] [address] Jun, [facility] [address] [id number] [address] [place] [address], [place] [address] Jun, [facility] [address] [id number] [address] [place] [address], [place] [address] Jun, [facility] [address] [id number] [address] [place] [address], [place] [address] May, [facility] [address] [id number] [address] [place] [address], [place] [address] May, [facility] [address] [id number] [address] [place] [address], [place] [address] May, [facility] [address] [id number] [address] [place] [address], [place] [address] May, [facility] [address] [id number] [address] [place] [address], [place] [address] May, [facility] [address] [id number] [address] [place] [address], [place] [address] May, [facility] [address] [id number] [address] [place] [address], [place] [address] 14 May, 2013 [facility] [address] [id number] [address] [place] [address], [place] [address] 12 May, 2013 [facility] [address] [id number] [address] [place] [address], [place] [address] 12 May, 2013 [facility] [address] [id number] [address] [place] [address], [place] [address] May, [facility] [address] [id number] [address] [place] [address], [place] [address] 11 May, 2013 [facility] [address] [id number] [address] [place] [address], [place] [address] 10 May, 2013 [facility] [address] [id number] [address] [place] [address], [place] [address] May, [facility] [address] [id number] [address] [place] [address], [place] [address] May, [facility] [address] [id number] [address] [place] [address], [place] [address] May, [facility] [address] [id number] [address] [place] [address], [place] [address] 08 May, 2013 [facility] [address] [id number] [address] [place] [address], [place] [address] 07 May, 2013 [facility] [address] [id number] [address] [place] [address] 06 May, 2013 [facility] [address] [id number] [address] [place] [address], [place] [address] May, [facility] [address] [id number] [address] [place] [address], [place] [address] May, [facility] [address] [id number] [address] [place] [address], [place] [address] May, [facility] [address] [id number] [address] [place] [id number] Apr, [facility] [address] [id number] [address] [place] [address], [place] [address] Apr, [facility] [address] [id number] [address] [place] [address], [place] [address] Apr, [facility] [address] [id number] [address] [place] [address], [place] [address] Apr, [facility] [address] [id number] [address] [place] [address], [place] [address] Mar, [facility] [address] [id number] [address] [place] [address], [place] [address] 23 Feb, 2013 [facility] [address] [id number] [address] [place] [address], [place] [address] 16 Feb, 2013 [facility] [address] [id number] [address] [place] [address], [place] [address] 13 Feb, 2013 [facility] [address] [id number] [address] [place] [address], [place] [address] 10 Feb, 2013 [facility] [address] [id number] [address] [place] [address], [place] [address] 09 Feb, 2013 [facility] [address] [id number] [address] [place] [address], [place] [address] 09 Feb, 2013 [facility] [address] [id number] [address] [place] [address], [place] [address] Jan, [facility] [address] [id number] [address] [place] [address], [place] [address] Jan, [facility] [address] [id number] [address] [place] [address], [place] [address] Jan, [facility] [address] [id number] [address] [place] [address], [place] [address] Dec, [facility] [address] [id number] [address] [place] [address], [place] [address] Dec, [facility] [address] [id number] [facility] [place] [address] 17 Dec, 2012 [facility] [address] [id number] [address] [place] [address], [place] [address] 15 Dec, 2012 [facility] [address] [id number] [address] [place] [address], [place] [address] Dec, [facility] [address] [id number] [address] [place] [address], [place] [address] Nov, [facility] [address] [id number] [address] [place] [address], [place] [address] Nov, [facility] [address] [id number] [address] [place] [address], [place] [address] Nov, [facility] [address] [id number] [address] [place] [address], [place] [address] Nov, [facility] [address] [id number] [address] [place] [address], [place] [address] Nov, [facility] [address] [id number] [address] [place] [address], [place] [address] 08 Nov, 2012 [facility] [address] [id number] [address] [place] [address], [place] [address] Nov, [facility] [address] [id number] [address] [place] [address], [place] [address] 06 Nov, 2012 [facility] [address] [id number] [address] [place] [address], [place] [address] Nov, [facility] [address] [id number] [address] [place] [address], [place] [address] Nov, [facility] [address] [id number] [address] [place] [address], [place] [address] October, [facility] [address] [id number] [address] [place] [address], [place] [address] October, [facility] [address] [id number] [address] [place] [address] [address] Sep, [facility] [address] [id number] [address] [place] [address], [place] [address] Sep, [facility] [address] [id number] [address] [place] [address], [place] [address] Sep, [facility] [address] [id number] [address] [place] [address], [place] [address] Sep, [facility] [address] [id number] [address] [place] [address], [place] [address] Sep, [facility] [address] [id number] [address] [place] [address], [place] [address] Aug, [facility] [address] [id number] [address] [place] [address], [place] [address] Aug, [facility] [address] [id number] [address] [place] [address], [place] [address] Jul, [facility] [address] [id number] [address] [place] [address], [place] [address] Jul, [facility] [address] [id number] [address] [place] [address], [place] [address] Jun, [facility] [address] [id number] [address] [place] [address], [place] [address] Jun, [facility] [address] [id number] [address] [place] [address], [place] [address] May, [facility] [address] [id number] [address] [place] [address], [place] [address] May, [facility] [address] [id number] [address] [place] [address], [place] [address] May, [facility] [address] [id number] [address] [place] [address], [place] [address] May, [facility] [address] [id number] [address] [place] [address], [place] [address] Apr, [facility] [address] [id number] [address] [place] [address], [place] [address] 27 Apr, 2012 [facility] [address] [id number] [address] [place] [address], [place] [address] 23 Apr, 2012 [facility] [address] [id number] [address] [place] [address], [place] [address] Apr, [facility] [address] [id number] [address] [place] [address], [place] [address] Apr, [facility] [address] [id number] [address] [place] [address], [place] [address] Apr, [facility] [address] [id number] [address] [place] [address], [place] [address] 14 Apr, 2012 [facility] [address] [id number] [address] [place] [address], [place] [address] Apr, [facility] [address] [id number] [address] [place] [address], [place] [address] Apr, [facility] [address] [id number] [address] [place] [address], [place] [address] Mar, [facility] [address] [id number] [address] [place] [address], [place] [address] Mar, [facility] [address] [id number] [address] [place] [address], [place] [address] Feb, [facility] [address] [id number] [address] [place] [address], [place] [address] Jan, [facility] [address] [id number] [address] [place] [address], [place] [address] Jan, [facility] [address] [id number] [address] [place] [address], [place] [address] Dec, [facility] [address] [id number] [address] [place] [address], [place] [address] Nov, [facility] [address] [id number] [address] [place] [address], [place] [address] Nov, [facility] [address] [id number] [address] [place] [address], [place] [address] October, [facility] [address] [id number] [address] [place] [address], [place] [address] October, [facility] [address] [id number] [address] [place] [address], [place] [address] Sep, [facility] [address] [id number] [address] [place] [address], [place] [address] Sep, [facility] [address] [id number] [address] [place] [address], [place] [address] May, [facility] [address] [id number] [address] [place] [address], [place] [address] Apr, [facility] [address] [id number] [address] [place] [address], [place] [address] Apr, [facility] [address] [id number] [address] [place] [address], [place] [address] Apr, [facility] [address] [id number] [address] [place] [address], [place] [address] Apr, [facility] [address] [id number] [address] [place] [address] Apr, [facility] [address] [id number] [address] [place] [address] Apr, [facility] [address] [id number] [address] [place] [address] Apr, [facility] [address] [id number] [address] [place] [address], [place] [address] Apr, [facility] [address] [id number] [address] [place] [address], [place] [address] Mar, [facility] [address] [id number] [address] [place] [address] Mar, [facility] [address] [id number] [address] [place] [id number] Mar, [facility] [address] [id number] [address] [place] [id number] Mar, [facility] [address] [id number] [address] [place] [address] Mar, [facility] [address] [id number] [address] [place] [id number] Mar, IMMUNIZATIONS No Known Immunizations SOCIAL HISTORY [...]
--- OUTSIDE RECORDS SUMMARY | 2019-12-24 19:50 | XMS REPORT ---
Author Author Trey ANDRADE Organization [facility] [place] Address [address] [place] [address] Care Team Providers Care Dowel Maker Name Role Phone SURESH ANDRADE Unavailable PROBLEMS Type Condition ICD9-CM Code DCT32-QT Code Onset Dates Condition S tatus SNOMED Code Problem Nondependent 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 Ac tive 382400701 Problem Other chronic pain G89.29 Active 1 17417859 Problem Unspecified epilepsy without mention of intractable ep ilepsy G40.909 Active 87862746 Problem Hyperlipidemia, unspecified E78.5 Ac tive 15010165 Problem Hypertension I10 Active 6862864 3 Problem Esophageal reflux K21.9 Active 23 1687416 Problem Rheumatoid arthritis M06.9 Active 85122101 Problem Cough R05 Active 59390594 Problem Acquired hypothyroidism E03.9 Active 918431086 Problem Unspecified open-angle glaucoma, stage unspecified H40.10X0 Feb, Active 99667841 Problem Presbyopia H52.4 Active 67283486 Problem Insomnia G47.00 Active 558085169 Problem Arthralgia M25.50 Active 69148647 Problem Thyroid nodule E04.1 Active 11344 5005 Problem Anxiety disorder, unspecified F41.9 Active 669929779 Problem Chronic tension-type headache, intractable G44.221 Active 589222603 Problem Neuropathy G62.9 Active 940262456 Problem Goiter E04.9 Active 2538498 Problem Multinodular goiter E04.2 Active 573009682 Problem Carpal tunnel syndrome of left wrist G56.02 Active 192947121382232 Problem Chronic obstructive pulmonary disease, unspecified COPD ty pe J44.9 Active 44353302 Problem BMI 40.0-44.9, adult Z68.41 Active 569979449 Problem Seasonal allergic rhinitis due to pollen J30.1 Active 03895428 Problem Depression F32.9 Active 71350232 Problem Essential hypertension I10 Active 68750053 Problem Depressive disorder F32.9 Active 54494086 Problem Right-sided low back pain without sciatica M54.5 Active 240688881 Problem Reactive airway disease with out complication, unspecified asthma severity, unspecified whether persistent J45.909 Active 737419077411 Problem Urge incontinence of urine N39.41 Act chen 40584886 Problem Abnormal laboratory test R89.9 Activ e 176541078 Problem COPD with exacerbation J44.1 Active 032562599 ALLERGIES No Information ENCOUNTERS Encounter Location Date Diagnosis [place] [address] [address] Apr, Bronchitis J40 [place] [address] [address] Apr, Acute gastritis without hemorrhage, unsp ecified gastritis type K29.00 [place] [address] [address] Mar, [place] [address] [address] Feb, [place] [address] [address] Feb, Mass of right side of neck R22.1 and Mul tinodular goiter E04.2 [facility] [place] [id number] [address] [place] [address] Jan, Bronchitis J40 [place] [address] [address] October, Acquired hypothyroidism E03.9 [place] [address] [address] October, Acute gastritis without hemorrhage, unsp ecified gastritis type K29.00 ; Epigastric pain R10.13 ; Essential hypertension I10 ; Screening for colon cancer Z12.11 and BMI 40.0-44.9, adult Z68.41 [place] [address] [address] October, [facility] [address] [address] October, Chest pain R07.9 and Morbid obesity E66.01 [facility] [address] [address] Sep, Generalized abdominal pain R 10.84 ; Morbid obesity E66.01 ; Non-intractable vomiting with nausea, unspecified vomiting type R11.2 and Seasonal allergic rhinitis due to pollen J30.1 [facility] [address] [address] Jul, COPD with exacerbation J44.1 ; Viral upper respiratory tract infection J06.9 and Morbid obesity E66.01 [facility] [address] [address] Jun, Viral upper respiratory trac t infection J06.9 [place] [address] [address] Apr, Abnormal laboratory test R89.9 [place] [address] [address] Apr, Abnormal laboratory test R89.9 [place] [address] [address] Apr, Abnormal laboratory test R89.9 [place] [address] [address] Apr, [place] [address] [address] Apr, [place] [address] [address] Apr, Nonintractable episodic headache, unspec ified headache type R51 ; Urge incontinence of urine N39.41 ; BMI 40.0-44.9, adult Z68.41 ; Myalgia M79.10 and Acute cystitis without hematuria N30.00 [place] [address] [address] Mar, Nasal congestion R09.81 ; Low back pain M54.5 ; Reactive airway disease without complication, unspecified asthma severity, unspecified whether persistent J45.909 ; Other chronic pain G89.29 ; Acute cystitis with hematuria N30.01 and BMI 40.0-44.9, adult Z68.41 [facility] [place] [address] [address] Mar, Acute cystitis with hematuria N30.01 [facility] [address] [facility] [id number] [address] [place] [address] Mar, BMI 40.0-44.9, adult Z68.41 ; Acute cystitis with hematuria N30.01 ; Acute bilateral low back pain without sciatica M54.5 and Nausea R11.0 [place] [address] [address] Mar, Hypertension I10 ; Acquired hypothyroidi sm E03.9 ; Esophageal reflux K21.9 ; Chronic obstructive pulmonary disease, unspecified COPD type J44.9 and BMI 40.0-44.9, adult Z68.41 [place] [address] [address] Mar, Hypertension I10 [place] [address] [address] Nov, Hyperlipidemia, unspecified E78.[address] [address] October, Chest pain, unspecified type R07.9 and A cquired hypothyroidism E03.9 [place] [address] [address] October, Chest pain, unspecified type R07.9 ; Fam demetrius history of coronary artery disease Z82.49 ; Carpal tunnel syndrome of left wrist G56.02 ; Hypertension I10 ; Esophageal reflux K21.9 ; Arthralgia M25.50 ; Acquired hypothyroidism E03.9 ; Cough R05 ; Nausea R11.0 ; Weight gain R63.5 and BMI 45.0-49.9, adult Z68.42 [place] [address] [address] Jun, Acquired hypothyroidism E03.9 and Cough R05 [place] [address] [address] May, [place] [address] [address] Feb, Tarsal tunnel syndrome of both lower ext remities G57.53 and Neuropathy G62.9 [place] [address] [address] Dec, Pleuritis R09.1 [place] [address] [address] Nov, [place] [address] [address] October, Arthralgia, unspecified joint M25.50 and Allergy, initial encounter T78.40XA [place] [address] [address] October, [place] [address] [address] October, Acute recurrent maxillary sinusitis J01. 01 and Arthralgia M25.50 [place] [address] [address] Sep, Pharyngitis due to other organism J02.8 [place] [address] [address] Aug, Acute nasopharyngitis J00 [place] [address] [address] Aug, Multinodular goiter E04.2 [place] [address] [address] Aug, Thyroid nodule E04.1 [place] [address] [address] Jul, Tarsal tunnel syndrome of both lower ext remities G57.53 [place] [address] [address] Jun, Pneumonia due to infectious organism, un specified laterality, unspecified part of lung J18.9 [place] [address] [address] Jun, Bronchospasm with bronchitis, acute J20. 9 [place] [address] [address] May, Acute non-recurrent frontal sinusitis J0 1.10 [place] [address] [address] May, Flat foot [pes planus] (acquired), left foot M21.42 ; Flat foot [pes planus] (acquired), right foot M21.41 and Neuropathy G62.9 [place] [address] [address] Apr, Chronic tension-type headache, intractab le G44.221 ; Right lower quadrant abdominal pain R10.31 ; Cervicalgia M54.2 ; Acute gastritis without hemorrhage, unspecified gastritis type K29.00 and Hypertension I10 [address] [address] Mar, Depression F32.9 and Anxiety disorder, u nspecified F41.9 [place] [address] [address] Feb, Depressive disorder F32.9 and Anxiety di sorder, unspecified F41.9 [place] [address] [address] Jan, Dysuria R30.0 ; Lower abdominal pain R10 .30 ; Acute bilateral low back pain without sciatica M54.5 ; Nausea and vomiting, unspecified intactability, vomiting of unspecified type R11.2 ; Pain in right foot M79.671 and Pain of left foot M79.[address] [address] Dec, Urinary tract infection, site not specif ied N39.0 [facility] [place] [address] [address] Dec, [facility] [place] [address] [address] Nov, [facility] [place] [address] [address] Nov, Dysuria R30.0 [facility] [place] [address] [address] Nov, Dysuria R30.0 and Acute cystitis with he maturia N30.01 [facility] [place] [address] [address] October, Nausea R11.0 [facility] [place] [address] [address] October, Thyroid nodule E04.1 ; Carpal tunnel syn drome, left upper limb G56.02 ; Carpal tunnel syndrome, right upper limb G56.01 and Constipation, unspecified constipation type K59.00 [facility] [place] [address] [address] October, [facility] [place] [address] [address] October, Thyroid nodule E04.1 [facility] [place] [address] [address] October, Cold thyroid nodule E04.1 [facility] [place] [address] [address] October, [facility] [place] [address] [address] Sep, Thyroid nodule E04.1 [facility] [place] [address] [address] Sep, Thyroid nodule E04.1 [facility] [place] [address] [address] Sep, Thyroid nodule E04.1 ; Hypertension I10 ; Esophageal reflux K21.9 and Hyperlipidemia, unspecified E78.5 [place] [address] [address] Aug, Other chronic pain G89.29 ; Sinusitis J3 2.9 and Hypertension I10 [place] [address] [address] Jul, [place] [address] [address] 15 Jul, [address] [address] 10 Jul, 2015 Insomnia G47.00 and Arthralgia M25.[address] [address] 10 Jul, 2015 Depressive disorder F32.9 and Anxiety di sorder, unspecified F41.[address] [address] May, Right-sided low back pain without sciati ca M54.5 and Depression F32.[address] [address] Apr, Hematuria R31.[address] [address] Mar, Other chronic pain G89.[address] [address] Mar, Other chronic pain G89.[address] [address] Feb, [address] [address] Feb, Other chronic pain 338.29 ; Dysuria 788. 1 ; UTI (urinary tract infection) 599.0 ; Insomnia 780.52 ; Hot flashes 627.2 and Hypertension 401.9 [facility] [place] [address] [place] [id number] [place] [address] Feb, Dysuria 788.1 [facility] [place] [address] [place] [id number] [place] [address] Feb, [facility] [place] [address] [address] Jan, [facility] [place] [address] [address] Jan, [facility] [place] [address] [address] Jan, Fibromyalgia 729.1 ; Hypertension 401.9 ; Dysthymia 300.4 and Hot flashes 627.2 [facility] [place] [address] [address] Dec, [facility] [place] [address] [address] Dec, [facility] [place] [address] [place] [id number] [place] [address] Dec, [facility] [place] [address] [address] Nov, Other chronic pain 338.29 [facility] [place] [address] [place] [id number] [place] [address] October, [facility] [place] [address] [address] October, [facility] [place] [address] [place] [id number] [place] [address] Sep, [facility] [place] [address] [address] Sep, [facility] [place] [address] [place] [id number] [place] [address] Aug, [facility] [place] [address] [address] Aug, [facility] [address] [id number] [place] [address] Aug, [facility] [address] [id number] [place] [address] Aug, [facility] [address] [id number] [place] [address] Aug, [facility] [address] [id number] [place] [address] Aug, [facility] [address] [id number] [place] [address] Aug, [facility] [address] [id number] [place] [address] Aug, [facility] [address] [id number] [place] [address] Aug, [facility] [address] [id number] [place] [address] Aug, [facility] [address] [id number] [place] [address] Aug, [facility] [address] [id number] [place] [address] Aug, [facility] [address] [id number] [place] [address] Aug, [facility] [address] [id number] [place] [address] Aug, [facility] [address] [id number] [place] [address] Jul, 2014 [facility] [address] [id number] [place] [address] Jul, [facility] [address] [id number] [place] [address] Jul, [facility] [address] [id number] [place] [address] Jul, [facility] [address] [id number] [place] [address] Jul, [facility] [address] [id number] [place] [address] Jul, [facility] [address] [id number] [place] [address] Jun, [facility] [address] [id number] [place] [address] Jun, [facility] [address] [id number] [place] [address] Jun, [facility] [address] [id number] [place] [address] Jun, [facility] [address] [id number] [place] [address] May, [facility] [address] [id number] [place] [address] May, [facility] [address] [id number] [place] [address] May, [facility] [address] [id number] [place] [address] May, [facility] [address] [id number] [place] [address] May, [facility] [address] [id number] [place] [address] May, [facility] [address] [id number] [place] [address] May, [facility] [address] [id number] [place] [address] May, [facility] [address] [id number] [place] [address] May, [facility] [address] [id number] [place] [address] May, [facility] [address] [id number] [place] [address] Apr, [facility] [address] [id number] [place] [address] Apr, [facility] [address] [id number] [place] [address] Apr, [facility] [address] [id number] [place] [address] Apr, [facility] [address] [id number] [place] [address] Apr, [facility] [address] [id number] [place] [address] Apr, [facility] [address] [id number] [place] [address] Apr, [facility] [address] [id number] [place] [address] Apr, [facility] [address] [id number] [place] [address] Apr, [facility] [address] [id number] [place] [address] Mar, [facility] [address] [id number] [place] [address] Mar, [facility] [address] [id number] [place] [address] Mar, [facility] [address] [id number] [place] [address] Mar, [facility] [address] [id number] [place] [address] Mar, [facility] [address] [id number] [place] [address] Mar, [facility] [address] [id number] [place] [address] Mar, [facility] [address] [id number] [place] [address] Mar, [facility] [address] [id number] [place] [address] Feb, [facility] [address] [id number] [place] [address] 30 Sep, 2013 [facility] [address] [id number] [place] [address] 24 Feb, 2013 [facility] [address] [id number] [place] [address] 24 Feb, 2013 [facility] [address] [id number] [place] [address] 22 Feb, 2013 [facility] [address] [facility] [id number] [place] [address] 22 Feb, 2013 [facility] [address] [id number] [place] [address] 10 Feb, 2013 [facility] [address] [id number] [place] [address] 10 Feb, 2013 [facility] [address] [id number] [place] [address] Sep, 2013 [facility] [address] [id number] [place] [address] Sep, 2013 [facility] [address] [id number] [place] [address] Feb, 2013 [facility] [address] [id number] [place] [address] Feb, 2013 [facility] [address] [id number] [place] [address] Feb, 2013 [facility] [address] [id number] [place] [address] Feb, 2013 [facility] [address] [id number] [place] [address] Jan, [facility] [address] [id number] [place] [address] Jan, 2013 [facility] [address] [id number] [place] [address] Dec, 2013 [facility] [address] [id number] [place] [address] Dec, 2013 [facility] [address] [id number] [facility] [place] [address] Dec, 2013 [facility] [address] [facility] [id number] [place] [address] Dec, 2013 [facility] [address] [facility] [id number] [facility] [place] [id number] Dec, 2013 [facility] [address] [facility] [id number] [place] [address] Dec, 2013 [facility] [address] [facility] [id number] [place] [address] Dec, 2013 [facility] [address] [facility] [id number] [place] [address] Dec, 2013 [facility] [address] [id number] [place] [address] Dec, 2013 [facility] [address] [id number] [place] [address] Dec, 2013 [facility] [address] [facility] [id number] [place] [address] Dec, 2013 [facility] [address] [id number] [place] [address] Dec, 2013 [facility] [address] [id number] [place] [address] Dec, 2013 [facility] [address] [id number] [place] [address] Dec, 2013 [facility] [address] [facility] [id number] [place] [address] Dec, 2013 [facility] [address] [facility] [id number] [place] [address] Dec, 2013 [facility] [address] [facility] [id number] [place] [address] Dec, 2013 [facility] [address] [id number] [place] [address] Dec, 2013 [facility] [address] [id number] [place] [address] Dec, [facility] [address] [id number] [place] [address] Nov, [facility] [address] [id number] [place] [address] Nov, [facility] [address] [id number] [place] [address] Nov, [facility] [address] [id number] [place] [address] Nov, [facility] [address] [id number] [place] [address] Nov, [facility] [address] [id number] [place] [address] Nov, [facility] [address] [id number] [place] [address] Nov, [facility] [address] [id number] [place] [address] Nov, [facility] [address] [id number] [place] [address] Nov, [facility] [address] [id number] [place] [address] October, [facility] [address] [id number] [place] [address] October, [facility] [address] [id number] [place] [address] October, [facility] [address] [id number] [place] [address] October, [facility] [address] [id number] [place] [address] October, [facility] [address] [id number] [place] [address] October, [facility] [address] [id number] [place] [address] October, [facility] [address] [id number] [place] [address] October, [facility] [address] [id number] [place] [address] Sep, [facility] [address] [id number] [place] [address] Sep, [facility] [address] [id number] [place] [address] Sep, [facility] [address] [id number] [place] [address] Sep, [facility] [address] [id number] [place] [address] Sep, [facility] [address] [id number] [place] [address] Sep, [facility] [address] [id number] [place] [address] Sep, [facility] [address] [id number] [place] [address] Aug, [facility] [address] [id number] [place] [address] Aug, [facility] [address] [id number] [place] [address] Aug, [facility] [address] [id number] [place] [address] Aug, [facility] [address] [id number] [place] [address] Aug, [facility] [address] [id number] [place] [address] Aug, [facility] [address] [id number] [place] [address] Jul, [facility] [address] [id number] [place] [address] Jul, [facility] [address] [id number] [place] [address] Jul, [facility] [address] [facility] [id number] [place] [address] Jul, [facility] [address] [id number] [place] [address] Jul, [facility] [address] [id number] [place] [address] Jul, [facility] [address] [id number] [place], [place] [address] Jun, [facility] [address] [id number] [place] [address] Jun, [facility] [address] [id number] [place] [address] Jun, [facility] [address] [id number] [place] [address] Jun, [facility] [address] [id number] [place] [address] Jun, [facility] [address] [id number] [place] [address] Jun, [facility] [address] [id number] [place] [address] Jun, [facility] [address] [id number] [place] [address] Jun, [facility] [address] [id number] [place] [address] Jun, [facility] [address] [id number] [place] [address] Jun, [facility] [address] [id number] [place] [address] Jun, [facility] [address] [id number] [place] [address] Jun, [facility] [address] [id number] [place] [address] Jun, [facility] [address] [id number] [place] [address] 30 May, 2012 [facility] [address] [id number] [place] [address] May, [facility] [address] [id number] [place] [address] May, [facility] [address] [id number] [place] [address] May, [facility] [address] [id number] [place] [address] May, [facility] [address] [id number] [place] [address] 14 May, 2013 [facility] [address] [id number] [place] [address] 14 May, 2013 [facility] [address] [id number] [place] [address] May, [facility] [address] [id number] [place] [address] May, [facility] [address] [id number] [place] [address] May, [facility] [address] [id number] [place] [address] May, [facility] [address] [id number] [place] [address] May, [facility] [address] [id number] [place] [address] May, [facility] [address] [id number] [place] [address] 09 May, 2013 [facility] [address] [id number] [place] [address] May, [facility] [address] [id number] [place] [address] 08 May, 2013 [facility] [address] [id number] [place] [address] 07 May, 2013 [facility] [address] [id number] [place] [address] 06 May, 2012 [facility] [address] [id number] [place] [address] May, 2012 [facility] [address] [id number] [place] [address] May, 2012 [facility] [address] [id number] [place] [address] May, 2012 [facility] [address] [id number] [place] [address] Apr, [facility] [address] [id number] [place] [address] Apr, [facility] [address] [id number] [place] [address] Apr, [facility] [id number] [place] [address] Apr, [facility] [address] [id number] [place] [address] 08 Mar, 2013 [facility] [address] [id number] [place] [address] 23 Feb, 2012 [facility] [address] [id number] [place] [address] 16 Feb, 2012 [facility] [address] [id number] [place] [address] 13 Feb, 2012 [facility] [address] [id number] [place] [address] 10 Feb, 2012 [facility] [address] [id number] [place] [address] 09 Feb, 2012 [facility] [address] [id number] [place] [address] 09 Feb, 2012 [facility] [address] [id number] [place] [address] Jan, [facility] [address] [id number] [place] [address] Jan, [facility] [address] [facility] [id number] [facility] [place] [address] Jan, [facility] [address] [facility] [id number] [facility] [place] [address] Dec, [facility] [address] [id number] [facility] [place] [address] Dec, [facility] [address] [facility] [id number] [facility] [place] [address] Dec, [facility] [address] [facility] [id number] [facility] [place] [address] Dec, [facility] [address] [id number] [place] [address] Dec, [facility] [address] [id number] [place] [address] Nov, [facility] [address] [id number] [place] [address] Nov, [facility] [address] [id number] [place] [address] Nov, [facility] [address] [id number] [place] [address] Nov, [facility] [address] [id number] [place] [address] Nov, [facility] [address] [id number] [place] [address] Nov, [facility] [address] [facility] [id number] [place] [address] 07 Nov, 2012 [facility] [address] [id number] [place] [address] 06 Nov, 2012 [facility] [address] [id number] [place] [address] 05 Nov, 2012 [facility] [address] [id number] [place] [address] Nov, [facility] [address] [id number] [place] [address] October, [facility] [address] [id number] [place] [address] October, [facility] [address] [id number] [place] [address] Sep, [facility] [address] [id number] [place] [address] Sep, [facility] [address] [id number] [place] [address] Sep, [facility] [address] [id number] [place] [address] Sep, [facility] [address] [id number] [place] [address] Sep, [facility] [id number] [place] [address] Aug, [facility] [address] [id number] [place] [address] Aug, [facility] [address] [id number] [place] [address] Jul, [facility] [address] [id number] [place] [address] Jul, [facility] [address] [id number] [place] [address] Jun, [facility] [address] [id number] [place] [address] Jun, [facility] [address] [id number] [place] [address] May, [facility] [id number] [place] [address] May, [facility] [address] [id number] [place] [address] May, [facility] [address] [id number] [place] [address] May, [facility] [address] [id number] [place] [address] Apr, [facility] [address] [id number] [place] [address] Apr, [facility] [address] [id number] [place] [address] Apr, [facility] [address] [id number] [place] [address] Apr, [facility] [address] [id number] [place] [address] Apr, [facility] [address] [id number] [place] [address] Apr, [facility] [address] [id number] [place] [address] Apr, [facility] [address] [id number] [place] [address] Apr, [facility] [address] [id number] [place] [address] Apr, [facility] [address] [id number] [place] [address] Mar, [facility] [address] [id number] [place] [address] Mar, [facility] [address] [id number] [place] [address] Feb, [facility] [address] [id number] [place] [address] Jan, [facility] [address] [id number] [place] [address] Jan, [facility] [address] [id number] [place] [address] Dec, [facility] [address] [id number] [place] [address] Nov, [facility] [address] [id number] [place] [address] Nov, [facility] [address] [id number] [place] [address] October, [facility] [address] [id number] [place] [address] October, [facility] [address] [id number] [place] [address] Sep, [facility] [address] [id number] [place] [address] Sep, [facility] [address] [id number] [place] [address] May, [facility] [address] [id number] [place] [address] Apr, [facility] [address] [id number] [place] [address] Apr, [facility] [address] [id number] [place] [address] Apr, [facility] [address] [id number] [place] [address] 15 Apr, 2011 [facility] [address] [id number] [place] [address] 15 Apr, 2011 [facility] [address] [id number] [place] [address] Apr, [facility] [address] [id number] [place] [address] Apr, [facility] [address] [id number] [place] [address] Apr, [facility] [id number] [place] [address] Mar, [facility] [address] [id number] [place] [address] Mar, [facility] [address] [id number] [place] [address] Mar, [facility] [address] [facility] [id number] [place] [address] Mar, [facility] [place] [address] [id number] [place] [address] Mar, [facility] [place] [address] [id number] [place] [address] Mar, IMMUNIZATIONS No Known Immunizations SOCIAL HISTORY [...]
--- OUTSIDE RECORDS SUMMARY | 2019-12-24 19:50 | XMS REPORT ---
Author Author Trey ANDRADE Organization [facility] Address [address] [place] [address] Care Team Providers Care Preschool Program Director Name Role Phone SURESH ANDRADE Unavailable PROBLEMS Type Condition ICD9-CM Code TXP36-BY Code Onset Dates Condition S tatus SNOMED Code Problem Nondependent 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 Ac tive 989576396 Problem Other chronic pain G89.29 Active 1 53127078 Problem Unspecified epilepsy without mention of intractable ep ilepsy G40.909 Active 59861696 Problem Hyperlipidemia, unspecified E78.5 Ac tive 61922687 Problem Hypertension I10 Active 0701745 3 Problem Esophageal reflux K21.9 Active 23 7884587 Problem Rheumatoid arthritis M06.9 Active 39547652 Problem Cough R05 Active 14448117 Problem Acquired hypothyroidism E03.9 Active 840883102 Problem Unspecified open-angle glaucoma, stage unspecified H40.10X0 Feb, Active 68131957 Problem Presbyopia H52.4 Active 56548817 Problem Insomnia G47.00 Active 591919575 Problem Arthralgia M25.50 Active 67622971 Problem Thyroid nodule E04.1 Active 98038 5005 Problem Anxiety disorder, unspecified F41.9 Active 919564773 Problem Chronic tension-type headache, intractable G44.221 Active 287577851 Problem Neuropathy G62.9 Active 531805929 Problem Goiter E04.9 Active 0231731 Problem Multinodular goiter E04.2 Active 735647789 Problem Carpal tunnel syndrome of left wrist G56.02 Active 828625729047683 Problem Chronic obstructive pulmonary disease, unspecified COPD ty pe J44.9 Active 88886849 Problem BMI 40.0-44.9, adult Z68.41 Active 593940887 Problem Seasonal allergic rhinitis due to pollen J30.1 Active 92115171 Problem Depression F32.9 Active 50007952 Problem Essential hypertension I10 Active 58200463 Problem Depressive disorder F32.9 Active 69692832 Problem Right-sided low back pain without sciatica M54.5 Active 936045925 Problem Reactive airway disease with out complication, unspecified asthma severity, unspecified whether persistent J45.909 Active 654827745267 Problem Urge incontinence of urine N39.41 Act chen 18295228 Problem Abnormal laboratory test R89.9 Activ e 059430766 Problem COPD with exacerbation J44.1 Active 993950969 ALLERGIES No Information ENCOUNTERS Encounter Location Date Diagnosis [place] [address] [address] Feb, [place] [address] [address] Feb, Mass of right side of neck R 22.1 and Multinodular goiter E04.2 [place] [address] [address] Jan, Bronchitis J40 [place] [address] [address] October, Acquired hypothyroidism E03. 9 [place] [address] [address] October, Acute gastritis without hemo rrhage, unspecified gastritis type K29.00 ; Epigastric pain R10.13 ; Essential hypertension I10 ; Screening for colon cancer Z12.11 and BMI 40.0-44.9, adult Z68.41 [place] [address] [address] October, [facility] [place] [address] [address] October, Chest pain R07.9 and Morbid obesity E66.01 [facility] [place] [address] [address] Sep, Generalized abdominal pain R 10.84 ; Morbid obesity E66.01 ; Non-intractable vomiting with nausea, unspecified vomiting type R11.2 and Seasonal allergic rhinitis due to pollen J30.[address] [facility] [address] [facility] [id number] [address] [place] [address] Jul, COPD with exacerbation J44.1 ; Viral upper respiratory tract infection J06.9 and Morbid obesity E66.[address] [facility] [address] [facility] [id number] [address] [place] [address] Jun, Viral upper respiratory trac t infection J06.9 [facility] [place] [address] [facility] [id number] [address] [place] [address] Apr, Abnormal laboratory test R89 .9 [place] [address] [facility] [id number] [address] [place] [address] Apr, Abnormal laboratory test R89 .9 [place] [address] [address] [place] [id number] [address] [place] [address] Apr, Abnormal laboratory test R89 .9 [place] [id number] [place] [address] Apr, [place] [address] [place] [id number] [address] [place] [address] Apr, [place] [address] [address] Apr, Nonintractable episodic head ache, unspecified headache type R51 ; Urge incontinence of urine N39.41 ; BMI 40.0-44.9, adult Z68.41 ; Myalgia M79.10 and Acute cystitis without hematuria N30.00 [place] [address] [address] [place] [id number] [address] [place] [address] Mar, Nasal congestion R09.81 ; Lo w back pain M54.5 ; Reactive airway disease without complication, unspecified asthma severity, unspecified whether persistent J45.909 ; Other chronic pain G89.29 ; Acute cystitis with hematuria N30.01 and BMI 40.0-44.9, adult Z68.41 [place] [address] [address] [place] [id number] [address] [place] [address] Mar, Acute cystitis with hematuri a N30.[address] [facility] [address] [address] Mar, BMI 40.0-44.9, adult Z68.41 ; Acute cystitis with hematuria N30.01 ; Acute bilateral low back pain without sciatica M54.5 and Nausea R11.0 [place] [address] [address] Mar, Hypertension I10 ; Acquired hypothyroidism E03.9 ; Esophageal reflux K21.9 ; Chronic obstructive pulmonary disease, unspecified COPD type J44.9 and BMI 40.0-44.9, adult Z68.41 [place] [address] [address] 15 Mar, 2018 Hypertension I10 [place] [address] [address] Nov, Hyperlipidemia, unspecified E78.5 [place] [address] [address] October, Chest pain, unspecified type R07.9 and Acquired hypothyroidism E03.9 [place] [address] [address] October, Chest pain, unspecified type R07.9 ; Family history of coronary artery disease Z82.49 ; Carpal tunnel syndrome of left wrist G56.02 ; Hypertension I10 ; Esophageal reflux K21.9 ; Arthralgia M25.50 ; Acquired hypothyroidism E03.9 ; Cough R05 ; Nausea R11.0 ; Weight gain R63.5 and BMI 45.0-49.9, adult Z68.42 [place] [address] [address] Jun, Acquired hypothyroidism E03. 9 and Cough R05 [place] [address] [address] May, [place] [address] [place] [address] Feb, Tarsal tunnel syndrome of timi th lower extremities G57.53 and Neuropathy G62.9 [place] [address] [address] [place] [id number] [address] [place] [address] Dec, Pleuritis R09.1 [place] [address] [address] Nov, [place] [address] [address] October, Arthralgia, unspecified join t M25.50 and Allergy, initial encounter T78.40XA [place] [address] [address] October, [place] [address] [address] October, Acute recurrent maxillary si nusitis J01.01 and Arthralgia M25.50 [place] [address] [address] [place] [id number] [address] [place] [address] Sep, Pharyngitis due to other org anism J02.8 [place] [address] [address] [place] [id number] [address] [place] [address] Aug, Acute nasopharyngitis J00 [place] [address] [address] Aug, Multinodular goiter E04.2 [place] [address] [address] [place] [id number] [address] [place] [address] Aug, Thyroid nodule E04.1 [place] [address] [address] [place] [id number] [address] [place] [address] Jul, Tarsal tunnel syndrome of timi th lower extremities G57.53 [place] [address] [address] [place] [id number] [address] [place] [address] Jun, Pneumonia due to infectious organism, unspecified laterality, unspecified part of lung J18.9 [place] [address] [address] Jun, Bronchospasm with bronchitis , acute J20.9 [place] [address] [address] May, Acute non-recurrent frontal sinusitis J01.10 [place] [address] [address] May, Flat foot [pes planus] (acqu ired), left foot M21.42 ; Flat foot [pes planus] (acquired), right foot M21.41 and Neuropathy G62.9 [place] [address] [address] Apr, Chronic tension-type headach e, intractable G44.221 ; Right lower quadrant abdominal pain R10.31 ; Cervicalgia M54.2 ; Acute gastritis without hemorrhage, unspecified gastritis type K29.00 and Hypertension I10 [place] [address] [address] Mar, Depression F32.9 and Anxiety disorder, unspecified F41.9 [place] [address] [address] Feb, Depressive disorder F32.9 an d Anxiety disorder, unspecified F41.9 [place] [address] [address] Jan, Dysuria R30.0 ; Lower abdomi nal pain R10.30 ; Acute bilateral low back pain without sciatica M54.5 ; Nausea and vomiting, unspecified intactability, vomiting of unspecified type R11.2 ; Pain in right foot M79.671 and Pain of left foot M79.672 [place] [address] [address] Dec, Urinary tract infection, sit e not specified N39.0 [place] [address] [id number] [address] [place] [address] Dec, [facility] [place] [address] [facility] [id number] [address] [place] [address] Nov, [facility] [place] [address] [facility] [id number] [address] [place] [address] Nov, Dysuria R30.0 [facility] [place] [address] [facility] [id number] [address] [place] [address] Nov, Dysuria R30.0 and Acute cyst itis with hematuria N30.01 [facility] [place] [address] [facility] [id number] [address] [place] [address] October, Nausea R11.0 [facility] [place] [address] [facility] [id number] [address] [place] [address] October, Thyroid nodule E04.1 ; Carpa l tunnel syndrome, left upper limb G56.02 ; Carpal tunnel syndrome, right upper limb G56.01 and Constipation, unspecified constipation type K59.00 [facility] [place] [address] [facility] [id number] [address] [place] [address] October, [facility] [place] [address] [facility] [id number] [address] [place] [address] October, Thyroid nodule E04.1 [facility] [place] [address] [facility] [id number] [address] [place] [address] October, Cold thyroid nodule E04.1 [facility] [place] [address] [facility] [id number] [address] [place] [address] October, [facility] [place] [address] [facility] [id number] [address] [place] [address] Sep, Thyroid nodule E04.1 [facility] [place] [address] [facility] [id number] [address] [place] [address] Sep, Thyroid nodule E04.1 [facility] [place] [address] [facility] [id number] [address] [place] [address] Sep, Thyroid nodule E04.1 ; Hyper tension I10 ; Esophageal reflux K21.9 and Hyperlipidemia, unspecified E78.5 [place] [address] [address] Aug, Other chronic pain G89.29 ; Sinusitis J32.9 and Hypertension I10 [place] [address] [address] 29 Jul, 2015 [place] [address] [address] 15 Jul, 2015 [place] [address] [address] 10 Jul, 2015 Insomnia G47.00 and Arthralg ia M25.50 [place] [address] [address] 10 Jul, 2015 Depressive disorder F32.9 an d Anxiety disorder, unspecified F41.9 [place] [address] [address] May, Right-sided low back pain wi thout sciatica M54.5 and Depression F32.9 [place] [address] [address] [place] [id number] [address] [place] [address] Apr, Hematuria R31.9 [place] [address] [address] Mar, Other chronic pain G89.29 [place] [address] [address] Mar, Other chronic pain G89.29 [place] [address] [address] Feb, [place] [address] [address] Feb, Other chronic pain 338.29 ; Dysuria 788.1 ; UTI (urinary tract infection) 599.0 ; Insomnia 780.52 ; Hot flashes 627.2 and Hypertension 401.9 [facility] [place] [address] [facility] [id number] [address] [place] [address] Feb, Dysuria 788.1 [facility] [place] [address] [facility] [id number] [address] [place] [address] Feb, [facility] [place] [address] [facility] [id number] [address] [place] [address] Jan, [facility] [place] [address] [facility] [id number] [address] [place] [address] Jan, [facility] [place] [address] [facility] [id number] [place] [address] Jan, Fibromyalgia 729.1 ; Hyperte nsion 401.9 ; Dysthymia 300.4 and Hot flashes 627.2 [facility] [place] [address] [facility] [id number] [address] [place] [address] Dec, [facility] [place] [address] [facility] [id number] [address] [place] [address] Dec, [facility] [place] [address] [facility] [id number] [address] [place] [address] Dec, [facility] [place] [address] [facility] [id number] [address] [place] [address] Nov, Other chronic pain 338.29 [facility] [place] [address] [facility] [id number] [address] [place] [address] October, [facility] [place] [address] [facility] [id number] [address] [place] [address] October, [facility] [place] [address] [facility] [id number] [address] [place] [address] Sep, [facility] [place] [address] [facility] [id number] [address] [place] [address] Sep, [facility] [place] [address] [facility] [id number] [address] [place] [address] Aug, [facility] [address] [id number] [address] [place] [address], [place] [address] Aug, [facility] [address] [id number] [address] [place] [address], [place] [address] Aug, [facility] [address] [id number] [address] [place] [address], [place] [address] Aug, [facility] [address] [id number] [address] [place] [address], [place] [address] Aug, [facility] [address] [id number] [address] [place] [address], [place] [address] Aug, [facility] [address] [id number] [address] [place] [address], [place] [address] Aug, [facility] [address] [id number] [address] [place] [address], [place] [address] Aug, [facility] [address] [id number] [address] [place] [address], [place] [address] Aug, [facility] [address] [id number] [address] [place] [address], [place] [address] Aug, [facility] [address] [id number] [address] [place] [address], [place] [address] Aug, [facility] [address] [id number] [address] [place] [address], [place] [address] Aug, [facility] [address] [id number] [address] [place] [address], [place] [address] Aug, [facility] [address] [id number] [address] [place] [address], [place] [address] Aug, [facility] [address] [id number] [address] [place] [address], [place] [address] Jul, [facility] [address] [id number] [address] [place] [address], [place] [address] Jul, [facility] [address] [id number] [address] [place] [address], [place] [address] Jul, [facility] [address] [id number] [address] [place] [address], [place] [address] Jul, [facility] [address] [id number] [address] [place] [address], [place] [address] Jul, [facility] [address] [id number] [address] [place] [address], [place] [address] Jul, [facility] [address] [id number] [address] [place] [address], [place] [address] Jun, [facility] [address] [id number] [address] [place] [address], [place] [address] Jun, [facility] [address] [id number] [address] [place] [address], [place] [address] Jun, [facility] [address] [id number] [address] [place] [address], [place] [address] Jun, [facility] [address] [id number] [address] [place] [address], [place] [address] May, [facility] [address] [id number] [address] [place] [address], [place] [address] May, [facility] [address] [id number] [address] [place] [address], [place] [address] May, [facility] [address] [id number] [address] [place] [address], [place] [address] May, [facility] [address] [id number] [address] [place] [address], [place] [address] May, [facility] [address] [id number] [address] [place] [address], [place] [address] May, [facility] [address] [id number] [address] [place] [address], [place] [address] May, [facility] [address] [id number] [address] [place] [address], [place] [address] May, [facility] [address] [id number] [address] [place] [address], [place] [address] May, [facility] [address] [id number] [address] [place] [address], [place] [address] May, [facility] [address] [id number] [address] [place] [address], [place] [address] Apr, [facility] [address] [id number] [address] [place] [address] Apr, [facility] [address] [id number] [address] [place] [address], [place] [address] Apr, [facility] [address] [id number] [address] [place] [address], [place] [address] Apr, [facility] [address] [id number] [address] [place] [address], [place] [address] Apr, [facility] [address] [id number] [address] [place] [address], [place] [address] Apr, [facility] [address] [id number] [address] [place] [address], [place] [address] Apr, [facility] [address] [id number] [address] [place] [address], [place] [address] Apr, [facility] [address] [id number] [address] [place] [address] Apr, [facility] [address] [id number] [address] [place] [address] Mar, [facility] [address] [id number] [address] [place] [address], [place] [address] Mar, [facility] [address] [id number] [address] [place] [address], [place] [address] Mar, [facility] [address] [id number] [address] [place] [address], [place] [address] Mar, [facility] [address] [id number] [address] [place] [address], [place] [address] 08 Mar, 2013 [facility] [address] [id number] [address] [place] [address], [place] [address] Mar, [facility] [address] [id number] [address] [place] [address], [place] [address] Mar, [facility] [address] [id number] [address] [place] [address], [place] [address] 08 Mar, 2014 [facility] [address] [id number] [address] [place] [address], [place] [address] 30 Feb, 2013 [facility] [address] [id number] [address] [place] [address], [place] [address] 30 Feb, 2013 [facility] [address] [id number] [address] [place] [address], [place] [address] 24 Feb, 2013 [facility] [address] [id number] [address] [place] [address], [place] [address] 24 Feb, 2013 [facility] [address] [id number] [address] [place] [address], [place] [address] 22 Feb, 2013 [facility] [address] [id number] [address] [place] [address], [place] [address] 22 Feb, 2013 [facility] [address] [id number] [address] [place] [address], [place] [address] 10 Feb, 2013 [facility] [address] [id number] [address] [place] [address], [place] [address] 10 Feb, 2013 [facility] [address] [id number] [address] [place] [address], [place] [address] 03 Sep, 2013 [facility] [address] [id number] [address] [place] [address], [place] [address] 03 Sep, 2013 [facility] [address] [id number] [address] [place] [address], [place] [address] 03 Feb, 2013 [facility] [address] [id number] [address] [place] [address], [place] [address] Feb, [facility] [address] [id number] [address] [place] [address], [place] [address] Feb, [facility] [address] [id number] [address] [place] [address], [place] [address] Feb, [facility] [address] [id number] [address] [place] [address], [place] [address] Jan, [facility] [address] [id number] [address] [place] [address], [place] [address] Jan, [facility] [address] [id number] [address] [place] [address], [place] [address] Dec, [facility] [address] [id number] [address] [place] [address], [place] [address] Dec, [facility] [address] [id number] [address] [place] [address], [place] [address] Dec, [facility] [address] [address] [id number] [address] [place] [address], [place] [address] Dec, [facility] [address] [id number] [address] [place] [address], [place] [id number] Dec, [facility] [address] [id number] [address] [place] [address], [place] [address] Dec, [facility] [address] [id number] [address] [place] [address], [place] [address] Dec, [facility] [address] [id number] [address] [place] [address], [place] [address] Dec, [facility] [address] [id number] [address] [place] [address], [place] [address] Dec, [facility] [address] [id number] [address] [place] [address], [place] [address] Dec, [facility] [address] [id number] [address] [place] [address], [place] [address] Dec, [facility] [address] [id number] [address] [place] [address], [place] [address] Dec, 2013 [facility] [address] [id number] [address] [place] [address], [place] [address] Dec, 2013 [facility] [address] [id number] [address] [place] [address], [place] [address] Dec, 2013 [facility] [address] [id number] [address] [place] [address], [place] [address] Dec, 2013 [facility] [address] [id number] [address] [place] [address], [place] [address] Dec, 2013 [facility] [address] [id number] [address] [place] [address], [place] [address] Dec, 2013 [facility] [address] [id number] [address] [place] [address], [place] [address] Dec, [facility] [address] [id number] [address] [place] [address], [place] [address] Dec, [facility] [address] [id number] [address] [place] [address], [place] [address] Nov, [facility] [address] [id number] [address] [place] [address], [place] [address] Nov, [facility] [address] [id number] [address] [place] [address], [place] [address] Nov, [facility] [address] [id number] [address] [place] [address], [place] [address] Nov, [facility] [address] [id number] [address] [place] [address], [place] [address] Nov, [facility] [address] [id number] [address] [place] [address], [place] [address] Nov, [facility] [address] [id number] [address] [place] [address], [place] [address] Nov, [facility] [address] [id number] [address] [place] [address], [place] [address] Nov, [facility] [address] [id number] [address] [place] [address], [place] [address] Nov, [facility] [address] [id number] [address] [place] [address], [place] [address] October, [facility] [address] [id number] [address] [place] [address], [place] [address] October, [facility] [address] [id number] [address] [place] [address], [place] [address] October, [facility] [address] [id number] [address] [place] [address], [place] [address] October, [facility] [address] [id number] [address] [place] [address], [place] [address] October, [facility] [address] [id number] [address] [place] [address], [place] [address] October, [facility] [address] [id number] [address] [place] [address], [place] [address] October, [facility] [address] [id number] [address] [place] [address], [place] [address] October, [facility] [address] [id number] [address] [place] [address], [place] [address] Sep, [facility] [address] [id number] [address] [place] [address], [place] [address] Sep, [facility] [address] [id number] [address] [place] [address], [place] [address] Sep, [facility] [address] [id number] [address] [place] [address], [place] [address] Sep, [facility] [address] [id number] [address] [place] [address], [place] [address] Sep, [facility] [address] [id number] [address] [place] [address], [place] [address] Sep, [facility] [address] [id number] [address] [place] [address], [place] [address] Sep, [facility] [address] [id number] [address] [place] [address], [place] [address] Aug, [facility] [address] [id number] [address] [place] [address], [place] [address] Aug, [facility] [address] [id number] [address] [place] [address], [place] [address] Aug, [facility] [address] [id number] [address] [place] [address], [place] [address] Aug, [facility] [address] [id number] [address] [place] [address], [place] [address] Aug, [facility] [address] [id number] [address] [place] [address], [place] [address] Aug, [facility] [address] [id number] [address] [place] [address], [place] [address] Jul, [facility] [address] [id number] [address] [place] [address], [place] [address] Jul, [facility] [address] [id number] [address] [place] [address], [place] [address] Jul, [facility] [address] [id number] [address] [place] [address], [place] [address] Jul, [facility] [address] [id number] [address] [place] [address], [place] [address] Jul, [facility] [address] [id number] [address] [place] [address], [place] [address] Jul, [facility] [address] [id number] [address] [place] [address], [place] [address] Jun, [facility] [address] [id number] [address] [place] [address], [place] [address] Jun, [facility] [address] [id number] [address] [place] [address], [place] [address] Jun, [facility] [address] [id number] [address] [place] [address], [place] [address] Jun, [facility] [address] [id number] [address] [place] [address], [place] [address] Jun, [facility] [address] [id number] [address] [place] [address], [place] [address] Jun, [facility] [address] [id number] [address] [place] [address], [place] [address] Jun, [facility] [address] [id number] [address] [place] [address], [place] [address] Jun, [facility] [address] [id number] [address] [place] [address], [place] [address] Jun, [facility] [address] [id number] [address] [place] [address], [place] [address] Jun, [facility] [address] [id number] [address] [place] [address], [place] [address] Jun, [facility] [address] [id number] [address] [place] [address], [place] [address] Jun, [facility] [address] [id number] [address] [place] [address], [place] [address] Jun, [facility] [address] [id number] [address] [place] [address], [place] [address] May, [facility] [address] [id number] [address] [place] [address], [place] [address] May, [facility] [address] [id number] [address] [place] [address], [place] [address] May, [facility] [address] [id number] [address] [place] [address], [place] [address] May, [facility] [address] [id number] [address] [place] [address], [place] [address] May, [facility] [address] [id number] [address] [place] [address], [place] [address] May, [facility] [address] [id number] [address] [place] [address], [place] [address] 14 May, 2013 [facility] [address] [id number] [address] [place] [address], [place] [address] 12 May, 2013 [facility] [address] [id number] [address] [place] [address], [place] [address] 12 May, 2013 [facility] [address] [id number] [address] [place] [address], [place] [address] May, [facility] [address] [id number] [address] [place] [address], [place] [address] 11 May, 2013 [facility] [address] [id number] [address] [place] [address], [place] [address] 10 May, 2013 [facility] [address] [id number] [address] [place] [address], [place] [address] May, [facility] [address] [id number] [address] [place] [address], [place] [address] May, [facility] [address] [id number] [address] [place] [address], [place] [address] May, [facility] [address] [id number] [address] [place] [address], [place] [address] 08 May, 2013 [facility] [address] [id number] [address] [place] [address], [place] [address] 07 May, 2013 [facility] [address] [id number] [address] [place] [address] 06 May, 2013 [facility] [address] [id number] [address] [place] [address], [place] [address] May, [facility] [address] [id number] [address] [place] [address], [place] [address] May, [facility] [address] [id number] [address] [place] [address], [place] [address] May, [facility] [address] [id number] [address] [place] [address] Apr, [facility] [address] [id number] [address] [place] [address], [place] [address] Apr, [facility] [address] [id number] [address] [place] [address], [place] [address] Apr, [facility] [address] [id number] [address] [place] [address], [place] [address] Apr, [facility] [address] [id number] [address] [place] [address], [place] [address] Mar, [facility] [address] [id number] [address] [place] [address], [place] [address] 23 Feb, 2013 [facility] [address] [id number] [address] [place] [address], [place] [address] 16 Feb, 2013 [facility] [address] [id number] [address] [place] [address], [place] [address] 13 Feb, 2013 [facility] [address] [id number] [address] [place] [address], [place] [address] 10 Feb, 2013 [facility] [address] [id number] [address] [place] [address], [place] [address] 09 Feb, 2013 [facility] [address] [id number] [address] [place] [address], [place] [address] 09 Feb, 2013 [facility] [address] [id number] [address] [place] [address], [place] [address] Jan, [facility] [address] [id number] [address] [place] [address], [place] [address] Jan, [facility] [address] [id number] [address] [place] [address], [place] [address] Jan, [facility] [address] [id number] [address] [place] [address], [place] [address] Dec, [facility] [address] [id number] [address] [place] [address], [place] [address] Dec, [facility] [address] [id number] [facility] [address] 17 Dec, 2012 [facility] [address] [id number] [address] [place] [address], [place] [address] 15 Dec, 2012 [facility] [address] [id number] [address] [place] [address], [place] [address] Dec, [facility] [address] [id number] [address] [place] [address], [place] [address] Nov, [facility] [address] [id number] [address] [place] [address], [place] [address] Nov, [facility] [address] [id number] [address] [place] [address], [place] [address] Nov, [facility] [address] [id number] [address] [place] [address], [place] [address] Nov, [facility] [address] [id number] [address] [place] [address], [place] [address] Nov, [facility] [address] [id number] [address] [place] [address], [place] [address] 08 Nov, 2012 [facility] [address] [id number] [address] [place] [address], [place] [address] Nov, [facility] [address] [id number] [address] [place] [address], [place] [address] 06 Nov, 2012 [facility] [address] [id number] [address] [place] [address], [place] [address] Nov, [facility] [address] [id number] [address] [place] [address], [place] [address] Nov, [facility] [address] [id number] [address] [place] [address], [place] [address] October, [facility] [address] [id number] [address] [place] [address], [place] [address] October, [facility] [address] [id number] [address] [place] [address] [address] Sep, [facility] [address] [id number] [address] [place] [address], [place] [address] Sep, [facility] [address] [id number] [address] [place] [address], [place] [address] Sep, [facility] [address] [id number] [address] [place] [address], [place] [address] Sep, [facility] [address] [id number] [address] [place] [address], [place] [address] Sep, [facility] [address] [id number] [address] [place] [address], [place] [address] Aug, [facility] [address] [id number] [address] [place] [address], [place] [address] Aug, [facility] [address] [id number] [address] [place] [address], [place] [address] Jul, [facility] [address] [id number] [address] [place] [address], [place] [address] Jul, [facility] [address] [id number] [address] [place] [address], [place] [address] Jun, [facility] [address] [id number] [address] [place] [address], [place] [address] Jun, [facility] [address] [id number] [address] [place] [address], [place] [address] May, [facility] [address] [id number] [address] [place] [address], [place] [address] May, [facility] [address] [id number] [address] [place] [address], [place] [address] May, [facility] [address] [id number] [address] [place] [address], [place] [address] May, [facility] [address] [id number] [address] [place] [address], [place] [address] Apr, [facility] [address] [id number] [address] [place] [address], [place] [address] 27 Apr, 2012 [facility] [address] [id number] [address] [place] [address], [place] [address] 23 Apr, 2012 [facility] [address] [id number] [address] [place] [address], [place] [address] Apr, [facility] [address] [id number] [address] [place] [address], [place] [address] Apr, [facility] [address] [id number] [address] [place] [address], [place] [address] Apr, [facility] [address] [id number] [address] [place] [address], [place] [address] 14 Apr, 2012 [facility] [address] [id number] [address] [place] [address], [place] [address] Apr, [facility] [address] [id number] [address] [place] [address], [place] [address] Apr, [facility] [address] [id number] [address] [place] [address], [place] [address] Mar, [facility] [address] [id number] [address] [place] [address], [place] [address] Mar, [facility] [address] [id number] [address] [place] [address], [place] [address] Feb, [facility] [address] [id number] [address] [place] [address], [place] [address] Jan, [facility] [address] [id number] [address] [place] [address], [place] [address] Jan, [facility] [address] [id number] [address] [place] [address], [place] [address] Dec, [facility] [address] [id number] [address] [place] [address], [place] [address] Nov, [facility] [address] [id number] [address] [place] [address], [place] [address] Nov, [facility] [address] [id number] [address] [place] [address], [place] [address] October, [facility] [address] [id number] [address] [place] [address], [place] [address] October, [facility] [address] [id number] [address] [place] [address], [place] [address] Sep, [facility] [address] [id number] [address] [place] [address], [place] [address] Sep, [facility] [address] [id number] [address] [place] [address], [place] [address] May, [facility] [address] [id number] [address] [place] [address], [place] [address] Apr, [facility] [address] [id number] [address] [place] [address], [place] [address] Apr, [facility] [address] [id number] [address] [place] [address], [place] [address] Apr, [facility] [address] [id number] [address] [place] [address], [place] [address] Apr, [facility] [address] [id number] [address] [place] [address] Apr, [facility] [address] [id number] [address] [place] [id number] Apr, [facility] [address] [id number] [address] [place] [phone] Apr, [facility] [address] [id number] [address] [place] [address], [place] [id number] Apr, [facility] [address] [id number] [address] [place] [address], [place] [address] Mar, [facility] [address] [id number] [address] [place] [phone] Mar, [facility] [address] [id number] [address] [place] [phone] Mar, [facility] [place] [address] [facility] [id number] [address] [place] [phone] Mar, [facility] [place] [address] [facility] [id number] [address] [place] [phone] Mar, [facility] [place] [address] [facility] [id number] [address] [place] [phone] Mar, IMMUNIZATIONS No Known Immunizations SOCIAL HISTORY Never Assessed REASON FOR VISIT PLAN OF CARE VITAL SIGNS Height 08760.2 in 2013-12-24 Temperature 98 degrees Fahrenheit 2013-12-24 Heart Rate 80 bpm 2013-12-24 Respiratory Rate 20 2013-12-24 Blood pressure systolic 130 mmHg 2013-12-24 Blood pressure diastolic 76 mmHg 2013-12-24 MEDICATIONS Unknown Medications RESULTS No Results PROCEDURES No Known procedures INSTRUCTIONS MEDICATIONS ADMINISTERED No Known Medications MEDICAL (GENERAL) HISTORY Type Description Date Medical History HTN Medical History Depression Medical History Arthritis Medical History COPD Surgical History Breast lump removed Surgical History Removal of cyst from ovary Surgical History cholecystectomy Surgical History Stomach surgeryx3 Hospitalization History Mental floor at [facility]
--- OUTSIDE RECORDS SUMMARY | 2019-12-24 19:51 | XMS REPORT ---
Author Author Trey ANDRADE Organization [facility] Address [address] [place] [address] Care Team Providers Care Automobile Service Advisor Name Role Phone SURESH ANDRADE Unavailable PROBLEMS Type Condition ICD9-CM Code SAK94-EN Code Onset Dates Condition S tatus SNOMED Code Problem Nondependent 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 Ac tive 828800764 Problem Other chronic pain G89.29 Active 1 53856558 Problem Unspecified epilepsy without mention of intractable ep ilepsy G40.909 Active 47832975 Problem Hyperlipidemia, unspecified E78.5 Ac tive 94499323 Problem Hypertension I10 Active 9055319 3 Problem Esophageal reflux K21.9 Active 23 8269737 Problem Rheumatoid arthritis M06.9 Active 09735750 Problem Cough R05 Active 16236469 Problem Acquired hypothyroidism E03.9 Active 013360740 Problem Unspecified open-angle glaucoma, stage unspecified H40.10X0 Feb, Active 83119582 Problem Presbyopia H52.4 Active 36419007 Problem Insomnia G47.00 Active 548571863 Problem Arthralgia M25.50 Active 44577916 Problem Thyroid nodule E04.1 Active 39832 5005 Problem Anxiety disorder, unspecified F41.9 Active 756583085 Problem Chronic tension-type headache, intractable G44.221 Active 006293692 Problem Neuropathy G62.9 Active 015185919 Problem Goiter E04.9 Active 0859530 Problem Multinodular goiter E04.2 Active 295738699 Problem Carpal tunnel syndrome of left wrist G56.02 Active 325354346764831 Problem Chronic obstructive pulmonary disease, unspecified COPD ty pe J44.9 Active 43962919 Problem BMI 40.0-44.9, adult Z68.41 Active 881726328 Problem Seasonal allergic rhinitis due to pollen J30.1 Active 00431228 Problem Depression F32.9 Active 08883899 Problem Essential hypertension I10 Active 02151315 Problem Depressive disorder F32.9 Active 49527012 Problem Right-sided low back pain without sciatica M54.5 Active 799184334 Problem Reactive airway disease with out complication, unspecified asthma severity, unspecified whether persistent J45.909 Active 435453955332 Problem Urge incontinence of urine N39.41 Act chen 32162435 Problem Abnormal laboratory test R89.9 Activ e 927580629 Problem COPD with exacerbation J44.1 Active 555887799 ALLERGIES No Information ENCOUNTERS Encounter Location Date Diagnosis [place] [address] [address] Feb, [place] [address] [address] Feb, Mass of right side of neck R 22.1 and Multinodular goiter E04.2 [place] [address] [address] Jan, Bronchitis J40 [place] [address] [address] October, Acquired hypothyroidism E03. 9 [place] [address] [address] October, Acute gastritis without hemo rrhage, unspecified gastritis type K29.00 ; Epigastric pain R10.13 ; Essential hypertension I10 ; Screening for colon cancer Z12.11 and BMI 40.0-44.9, adult Z68.41 [place] [address] [address] October, [facility] [place] [address] [address] October, Chest pain R07.9 and Morbid obesity E66.01 [facility] [place] [address] [address] Sep, Generalized abdominal pain R 10.84 ; Morbid obesity E66.01 ; Non-intractable vomiting with nausea, unspecified vomiting type R11.2 and Seasonal allergic rhinitis due to pollen J30.1 [facility] [address] [facility] [id number] [address] [place] [address] Jul, COPD with exacerbation J44.1 ; Viral upper respiratory tract infection J06.9 and Morbid obesity E66.01 [facility] [address] [facility] [id number] [address] [place] [address] Jun, Viral upper respiratory trac t infection J06.9 [facility] [address] [facility] [id number] [address] [place] [address] Apr, Abnormal laboratory test R89 .9 [place] [address] [facility] [id number] [address] [place] [address] Apr, Abnormal laboratory test R89 .9 [place] [address] [place] [id number] [address] [place] [address] Apr, Abnormal laboratory test R89 .9 [place] [address] [place] [address] Apr, [place] [address] [place] [id number] [address] [place] [address] Apr, [place] [address] [address] Apr, Nonintractable episodic head ache, unspecified headache type R51 ; Urge incontinence of urine N39.41 ; BMI 40.0-44.9, adult Z68.41 ; Myalgia M79.10 and Acute cystitis without hematuria N30.00 [place] [address] [place] [id number] [address] [place] [address] Mar, Nasal congestion R09.81 ; Lo w back pain M54.5 ; Reactive airway disease without complication, unspecified asthma severity, unspecified whether persistent J45.909 ; Other chronic pain G89.29 ; Acute cystitis with hematuria N30.01 and BMI 40.0-44.9, adult Z68.41 [place] [address] [place] [id number] [address] [place] [address] Mar, Acute cystitis with hematuri a N30.01 [facility] [address] [address] Mar, BMI 40.0-44.9, adult Z68.41 ; Acute cystitis with hematuria N30.01 ; Acute bilateral low back pain without sciatica M54.5 and Nausea R11.0 [place] [address] [address] Mar, Hypertension I10 ; Acquired hypothyroidism E03.9 ; Esophageal reflux K21.9 ; Chronic obstructive pulmonary disease, unspecified COPD type J44.9 and BMI 40.0-44.9, adult Z68.41 [place] [address] [address] 15 Mar, 2018 Hypertension I10 [place] [address] [address] Nov, Hyperlipidemia, unspecified E78.5 [place] [address] [address] October, Chest pain, unspecified type R07.9 and Acquired hypothyroidism E03.9 [place] [address] [address] October, Chest pain, unspecified type R07.9 ; Family history of coronary artery disease Z82.49 ; Carpal tunnel syndrome of left wrist G56.02 ; Hypertension I10 ; Esophageal reflux K21.9 ; Arthralgia M25.50 ; Acquired hypothyroidism E03.9 ; Cough R05 ; Nausea R11.0 ; Weight gain R63.5 and BMI 45.0-49.9, adult Z68.42 [place] [address] [address] Jun, Acquired hypothyroidism E03. 9 and Cough R05 [place] [address] [address] May, [place] [address] [place] [address] Feb, Tarsal tunnel syndrome of timi th lower extremities G57.53 and Neuropathy G62.9 [place] [address] [place] [id number] [address] [place] [address] Dec, Pleuritis R09.1 [place] [address] [address] Nov, [place] [address] [address] October, Arthralgia, unspecified join t M25.50 and Allergy, initial encounter T78.40XA [place] [address] [address] October, [place] [address] [address] October, Acute recurrent maxillary si nusitis J01.01 and Arthralgia M25.50 [place] [address] [place] [id number] [address] [place] [address] Sep, Pharyngitis due to other org anism J02.8 [place] [address] [place] [id number] [address] [place] [address] Aug, Acute nasopharyngitis J00 [place] [address] [address] Aug, Multinodular goiter E04.2 [place] [address] [place] [id number] [address] [place] [address] Aug, Thyroid nodule E04.1 [place] [address] [place] [id number] [address] [place] [address] Jul, Tarsal tunnel syndrome of timi th lower extremities G57.53 [place] [address] [place] [id number] [address] [place] [address] Jun, Pneumonia due to infectious organism, unspecified laterality, unspecified part of lung J18.9 [place] [address] [address] Jun, Bronchospasm with bronchitis , acute J20.9 [place] [address] [address] May, Acute non-recurrent frontal sinusitis J01.10 [place] [address] [address] May, Flat foot [pes planus] (acqu ired), left foot M21.42 ; Flat foot [pes planus] (acquired), right foot M21.41 and Neuropathy G62.9 [place] [address] [address] Apr, Chronic tension-type headach e, intractable G44.221 ; Right lower quadrant abdominal pain R10.31 ; Cervicalgia M54.2 ; Acute gastritis without hemorrhage, unspecified gastritis type K29.00 and Hypertension I10 [place] [address] [address] Mar, Depression F32.9 and Anxiety disorder, unspecified F41.9 [place] [address] [address] Feb, Depressive disorder F32.9 an d Anxiety disorder, unspecified F41.9 [place] [address] [address] Jan, Dysuria R30.0 ; Lower abdomi nal pain R10.30 ; Acute bilateral low back pain without sciatica M54.5 ; Nausea and vomiting, unspecified intactability, vomiting of unspecified type R11.2 ; Pain in right foot M79.671 and Pain of left foot M79.672 [place] [address] [address] Dec, Urinary tract infection, sit e not specified N39.0 [place] [address] [id number] [address] [place] [address] Dec, [facility] [address] [facility] [id number] [address] [place] [address] Nov, [facility] [address] [facility] [id number] [address] [place] [address] Nov, Dysuria R30.0 [facility] [address] [facility] [id number] [address] [place] [address] Nov, Dysuria R30.0 and Acute cyst itis with hematuria N30.01 [facility] [address] [facility] [id number] [address] [place] [address] October, Nausea R11.0 [facility] [address] [facility] [id number] [address] [place] [address] October, Thyroid nodule E04.1 ; Carpa l tunnel syndrome, left upper limb G56.02 ; Carpal tunnel syndrome, right upper limb G56.01 and Constipation, unspecified constipation type K59.00 [facility] [address] [facility] [id number] [address] [place] [address] October, [facility] [address] [facility] [id number] [address] [place] [address] October, Thyroid nodule E04.1 [facility] [address] [facility] [id number] [address] [place] [address] October, Cold thyroid nodule E04.1 [facility] [address] [facility] [id number] [address] [place] [address] October, [facility] [address] [facility] [id number] [address] [place] [address] Sep, Thyroid nodule E04.1 [facility] [address] [facility] [id number] [address] [place] [address] Sep, Thyroid nodule E04.1 [facility] [address] [facility] [id number] [address] [place] [address] Sep, Thyroid nodule E04.1 ; Hyper tension I10 ; Esophageal reflux K21.9 and Hyperlipidemia, unspecified E78.5 [place] [address] [address] Aug, Other chronic pain G89.29 ; Sinusitis J32.9 and Hypertension I10 [place] [address] [address] 29 Jul, 2015 [place] [address] [address] 15 Jul, 2015 [place] [address] [address] 10 Jul, 2015 Insomnia G47.00 and Arthralg ia M25.50 [place] [address] [address] 10 Jul, 2015 Depressive disorder F32.9 an d Anxiety disorder, unspecified F41.9 [place] [address] [address] May, Right-sided low back pain wi thout sciatica M54.5 and Depression F32.9 [place] [address] [place] [id number] [address] [place] [address] Apr, Hematuria R31.9 [place] [address] [address] Mar, Other chronic pain G89.29 [place] [address] [address] Mar, Other chronic pain G89.29 [place] [address] [address] Feb, [place] [address] [address] Feb, Other chronic pain 338.29 ; Dysuria 788.1 ; UTI (urinary tract infection) 599.0 ; Insomnia 780.52 ; Hot flashes 627.2 and Hypertension 401.9 [facility] [address] [facility] [id number] [address] [place] [address] Feb, Dysuria 788.1 [facility] [address] [facility] [id number] [address] [place] [address] Feb, [facility] [address] [facility] [id number] [address] [place] [address] Jan, [facility] [address] [facility] [id number] [address] [place] [address] Jan, [facility] [address] [facility] [id number] [place] [address] Jan, Fibromyalgia 729.1 ; Hyperte nsion 401.9 ; Dysthymia 300.4 and Hot flashes 627.2 [facility] [address] [facility] [id number] [address] [place] [address] Dec, [facility] [address] [facility] [id number] [address] [place] [address] Dec, [facility] [address] [facility] [id number] [address] [place] [address] Dec, [facility] [address] [facility] [id number] [address] [place] [address] Nov, Other chronic pain 338.29 [facility] [address] [facility] [id number] [address] [place] [address] October, [facility] [address] [facility] [id number] [address] [place] [address] October, [facility] [address] [facility] [id number] [address] [place] [address] Sep, [facility] [address] [facility] [id number] [address] [place] [address] Sep, [facility] [address] [facility] [id number] [address] [place] [address] Aug, [facility] [address] [id number] [address] [place] [address], [place] [address] Aug, [facility] [address] [id number] [address] [place] [address], [place] [address] Aug, [facility] [address] [id number] [address] [place] [address], [place] [address] Aug, [facility] [address] [id number] [address] [place] [address], [place] [address] Aug, [facility] [address] [id number] [address] [place] [address], [place] [address] Aug, [facility] [address] [id number] [address] [place] [address], [place] [address] Aug, [facility] [address] [id number] [address] [place] [address], [place] [address] Aug, [facility] [address] [id number] [address] [place] [address], [place] [address] Aug, [facility] [address] [id number] [address] [place] [address], [place] [address] Aug, [facility] [address] [id number] [address] [place] [address], [place] [address] Aug, [facility] [address] [id number] [address] [place] [address], [place] [address] Aug, [facility] [address] [id number] [address] [place] [address], [place] [address] Aug, [facility] [address] [id number] [address] [place] [address], [place] [address] Aug, [facility] [address] [id number] [address] [place] [address], [place] [address] Jul, [facility] [address] [id number] [address] [place] [address], [place] [address] Jul, [facility] [address] [id number] [address] [place] [address], [place] [address] Jul, [facility] [address] [id number] [address] [place] [address], [place] [address] Jul, [facility] [address] [id number] [address] [place] [address], [place] [address] Jul, [facility] [address] [id number] [address] [place] [address], [place] [address] Jul, [facility] [address] [id number] [address] [place] [address], [place] [address] Jun, [facility] [address] [id number] [address] [place] [address], [place] [address] Jun, [facility] [address] [id number] [address] [place] [address], [place] [address] Jun, [facility] [address] [id number] [address] [place] [address], [place] [address] Jun, [facility] [address] [id number] [address] [place] [address], [place] [address] May, [facility] [address] [id number] [address] [place] [address], [place] [address] May, [facility] [address] [id number] [address] [place] [address], [place] [address] May, [facility] [address] [id number] [address] [place] [address], [place] [address] May, [facility] [address] [id number] [address] [place] [address], [place] [address] May, [facility] [address] [id number] [address] [place] [address], [place] [address] May, [facility] [address] [id number] [address] [place] [address], [place] [address] May, [facility] [address] [id number] [address] [place] [address], [place] [address] May, [facility] [address] [id number] [address] [place] [address], [place] [address] May, [facility] [address] [id number] [address] [place] [address], [place] [address] May, [facility] [address] [id number] [address] [place] [address], [place] [address] Apr, [facility] [address] [id number] [address] [place] [address] Apr, [facility] [address] [id number] [address] [place] [address], [place] [address] Apr, [facility] [address] [id number] [address] [place] [address], [place] [address] Apr, [facility] [address] [id number] [address] [place] [address], [place] [address] Apr, [facility] [address] [id number] [address] [place] [address], [place] [address] Apr, [facility] [address] [id number] [address] [place] [address], [place] [address] Apr, [facility] [address] [id number] [address] [place] [address], [place] [address] Apr, [facility] [address] [id number] [address] [place] [address] Apr, [facility] [address] [id number] [address] [place] [address] Mar, [facility] [address] [id number] [address] [place] [address], [place] [address] Mar, [facility] [address] [id number] [address] [place] [address], [place] [address] Mar, [facility] [address] [id number] [address] [place] [address], [place] [address] Mar, [facility] [address] [id number] [address] [place] [address], [place] [address] 08 Mar, 2013 [facility] [address] [id number] [address] [place] [address], [place] [address] Mar, [facility] [address] [id number] [address] [place] [address], [place] [address] Mar, [facility] [address] [id number] [address] [place] [address], [place] [address] 08 Mar, 2014 [facility] [address] [id number] [address] [place] [address], [place] [address] 30 Feb, 2013 [facility] [address] [id number] [address] [place] [address], [place] [address] 30 Feb, 2013 [facility] [address] [id number] [address] [place] [address], [place] [address] 24 Feb, 2013 [facility] [address] [id number] [address] [place] [address], [place] [address] 24 Feb, 2013 [facility] [address] [id number] [address] [place] [address], [place] [address] 22 Feb, 2013 [facility] [address] [id number] [address] [place] [address], [place] [address] 22 Feb, 2013 [facility] [address] [id number] [address] [place] [address], [place] [address] 10 Feb, 2013 [facility] [address] [id number] [address] [place] [address], [place] [address] 10 Feb, 2013 [facility] [address] [id number] [address] [place] [address], [place] [address] 03 Sep, 2013 [facility] [address] [id number] [address] [place] [address], [place] [address] 03 Sep, 2013 [facility] [address] [id number] [address] [place] [address], [place] [id number] 03 Feb, 2013 [facility] [address] [id number] [address] [place] [address], [place] [id number] Feb, [facility] [address] [id number] [address] [place] [address], [place] [id number] Feb, [facility] [address] [id number] [address] [place] [address], [place] [address] Feb, [facility] [address] [id number] [address] [place] [address], [place] [id number] Jan, [facility] [address] [id number] [address] [place] [address], [place] [address] Jan, [facility] [address] [id number] [address] [place] [address], [place] [id number] Dec, [facility] [address] [id number] [address] [place] [address], [place] [id number] Dec, [facility] [address] [id number] [address] [place] [address], [place] [id number] Dec, [facility] [address] [id number] [address] [place] [address], [place] [address] Dec, [facility] [address] [id number] [address] [place] [address], [place] [id number] Dec, [facility] [address] [id number] [address] [place] [address], [place] [address] Dec, [facility] [address] [id number] [address] [place] [address], [place] [id number] Dec, [facility] [address] [id number] [address] [place] [address], [place] [id number] Dec, [facility] [address] [id number] [address] [place] [address], [place] [id number] Dec, [facility] [address] [id number] [address] [place] [address], [place] [address] Dec, [facility] [address] [id number] [address] [place] [address], [place] [address] Dec, [facility] [address] [id number] [address] [place] [address], [place] [address] Dec, 2013 [facility] [address] [id number] [address] [place] [address], [place] [address] Dec, 2013 [facility] [address] [id number] [address] [place] [address], [place] [address] Dec, 2013 [facility] [address] [id number] [address] [place] [address], [place] [id number] Dec, 2013 [facility] [address] [id number] [address] [place] [address], [place] [id number] Dec, 2013 [facility] [address] [id number] [address] [place] [address], [place] [address] Dec, 2013 [facility] [address] [id number] [address] [place] [address], [place] [address] Dec, [facility] [address] [id number] [address] [place] [address], [place] [address] Dec, [facility] [address] [id number] [address] [place] [address], [place] [address] Nov, [facility] [address] [id number] [address] [place] [address], [place] [address] Nov, [facility] [address] [id number] [address] [place] [address], [place] [address] Nov, [facility] [address] [id number] [address] [place] [address], [place] [address] Nov, [facility] [address] [id number] [address] [place] [address], [place] [address] Nov, [facility] [address] [id number] [address] [place] [address], [place] [address] Nov, [facility] [address] [id number] [address] [place] [address], [place] [address] Nov, [facility] [address] [id number] [address] [place] [address], [place] [address] Nov, [facility] [address] [id number] [address] [place] [address], [place] [address] Nov, [facility] [address] [id number] [address] [place] [address], [place] [address] October, [facility] [address] [id number] [address] [place] [address], [place] [address] October, [facility] [address] [id number] [address] [place] [address], [place] [address] October, [facility] [address] [id number] [address] [place] [address], [place] [address] October, [facility] [address] [id number] [address] [place] [address], [place] [address] October, [facility] [address] [id number] [address] [place] [address], [place] [address] October, [facility] [address] [id number] [address] [place] [address], [place] [address] October, [facility] [address] [id number] [address] [place] [address], [place] [address] October, [facility] [address] [id number] [address] [place] [address], [place] [address] Sep, [facility] [address] [id number] [address] [place] [address], [place] [address] Sep, [facility] [address] [id number] [address] [place] [address], [place] [address] Sep, [facility] [address] [id number] [address] [place] [address], [place] [address] Sep, [facility] [address] [id number] [address] [place] [address], [place] [address] Sep, [facility] [address] [id number] [address] [place] [address], [place] [address] Sep, [facility] [address] [id number] [address] [place] [address], [place] [address] Sep, [facility] [address] [id number] [address] [place] [address], [place] [address] Aug, [facility] [address] [id number] [address] [place] [address], [place] [address] Aug, [facility] [address] [id number] [address] [place] [address], [place] [address] Aug, [facility] [address] [id number] [address] [place] [address], [place] [address] Aug, [facility] [address] [id number] [address] [place] [address], [place] [address] Aug, [facility] [address] [id number] [address] [place] [address], [place] [address] Aug, [facility] [address] [id number] [address] [place] [address], [place] [address] Jul, [facility] [address] [id number] [address] [place] [address], [place] [address] Jul, [facility] [address] [id number] [address] [place] [address], [place] [address] Jul, [facility] [address] [id number] [address] [place] [address], [place] [address] Jul, [facility] [address] [id number] [address] [place] [address], [place] [address] Jul, [facility] [address] [id number] [address] [place] [address], [place] [address] Jul, [facility] [address] [id number] [address] [place] [address], [place] [address] Jun, [facility] [address] [id number] [address] [place] [address], [place] [address] Jun, [facility] [address] [id number] [address] [place] [address], [place] [address] Jun, [facility] [address] [id number] [address] [place] [address], [place] [address] Jun, [facility] [address] [id number] [address] [place] [address], [place] [address] Jun, [facility] [address] [id number] [address] [place] [address], [place] [address] Jun, [facility] [address] [id number] [address] [place] [address], [place] [address] Jun, [facility] [address] [id number] [address] [place] [address], [place] [address] Jun, [facility] [address] [id number] [address] [place] [address], [place] [address] Jun, [facility] [address] [id number] [address] [place] [address], [place] [address] Jun, [facility] [address] [id number] [address] [place] [address], [place] [address] Jun, [facility] [address] [id number] [address] [place] [address], [place] [address] Jun, [facility] [address] [id number] [address] [place] [address], [place] [address] Jun, [facility] [address] [id number] [address] [place] [address], [place] [address] May, [facility] [address] [id number] [address] [place] [address], [place] [address] May, [facility] [address] [id number] [address] [place] [address], [place] [address] May, [facility] [address] [id number] [address] [place] [address], [place] [address] May, [facility] [address] [id number] [address] [place] [address], [place] [address] May, [facility] [address] [id number] [address] [place] [address], [place] [address] May, [facility] [address] [id number] [address] [place] [address], [place] [address] 14 May, 2013 [facility] [address] [id number] [address] [place] [address], [place] [address] 12 May, 2013 [facility] [address] [id number] [address] [place] [address], [place] [address] 12 May, 2013 [facility] [address] [id number] [address] [place] [address], [place] [address] May, [facility] [address] [id number] [address] [place] [address], [place] [address] 11 May, 2013 [facility] [address] [id number] [address] [place] [address], [place] [address] 10 May, 2013 [facility] [address] [id number] [address] [place] [address], [place] [address] May, [facility] [address] [id number] [address] [place] [address], [place] [address] May, [facility] [address] [id number] [address] [place] [address], [place] [address] May, [facility] [address] [id number] [address] [place] [address], [place] [address] 08 May, 2013 [facility] [address] [id number] [address] [place] [address], [place] [address] 07 May, 2013 [facility] [address] [id number] [address] [place] [id number] 06 May, 2013 [facility] [address] [id number] [address] [place] [address], [place] [address] May, [facility] [address] [id number] [address] [place] [address], [place] [address] May, [facility] [address] [id number] [address] [place] [address], [place] [address] May, [facility] [address] [id number] [address] [place] [address] Apr, [facility] [address] [id number] [address] [place] [address], [place] [address] Apr, [facility] [address] [id number] [address] [place] [address], [place] [address] Apr, [facility] [address] [id number] [address] [place] [address], [place] [address] Apr, [facility] [address] [id number] [address] [place] [address], [place] [address] Mar, [facility] [address] [id number] [address] [place] [address], [place] [address] 23 Feb, 2013 [facility] [address] [id number] [address] [place] [address], [place] [address] 16 Feb, 2013 [facility] [address] [id number] [address] [place] [address], [place] [address] 13 Feb, 2013 [facility] [address] [id number] [address] [place] [address], [place] [address] 10 Feb, 2013 [facility] [address] [id number] [address] [place] [address], [place] [address] 09 Feb, 2013 [facility] [address] [id number] [address] [place] [address], [place] [address] 09 Feb, 2013 [facility] [address] [id number] [address] [place] [address], [place] [address] Jan, [facility] [address] [id number] [address] [place] [address], [place] [address] Jan, [facility] [address] [id number] [address] [place] [address], [place] [address] Jan, [facility] [address] [id number] [address] [place] [address], [place] [address] Dec, [facility] [address] [id number] [address] [place] [address], [place] [address] Dec, [facility] [address] [id number] [facility] [address] 17 Dec, 2012 [facility] [address] [id number] [address] [place] [address], [place] [address] 15 Dec, 2012 [facility] [address] [id number] [address] [place] [address], [place] [address] Dec, [facility] [address] [id number] [address] [place] [address], [place] [address] Nov, [facility] [address] [id number] [address] [place] [address], [place] [address] Nov, [facility] [address] [id number] [address] [place] [address], [place] [address] Nov, [facility] [address] [id number] [address] [place] [address], [place] [address] Nov, [facility] [address] [id number] [address] [place] [address], [place] [address] Nov, [facility] [address] [id number] [address] [place] [address], [place] [address] 08 Nov, 2012 [facility] [address] [id number] [address] [place] [address], [place] [address] Nov, [facility] [address] [id number] [address] [place] [address], [place] [address] 06 Nov, 2012 [facility] [address] [id number] [address] [place] [address], [place] [address] Nov, [facility] [address] [id number] [address] [place] [address], [place] [address] Nov, [facility] [address] [id number] [address] [place] [address], [place] [address] October, [facility] [address] [id number] [address] [place] [address], [place] [address] October, [facility] [address] [id number] [address] [place] [address] [address] Sep, [facility] [address] [id number] [address] [place] [address], [place] [address] Sep, [facility] [address] [id number] [address] [place] [address], [place] [address] Sep, [facility] [address] [id number] [address] [place] [address], [place] [address] Sep, [facility] [address] [id number] [address] [place] [address], [place] [address] Sep, [facility] [address] [id number] [address] [place] [address], [place] [address] Aug, [facility] [address] [id number] [address] [place] [address], [place] [address] Aug, [facility] [address] [id number] [address] [place] [address], [place] [address] Jul, [facility] [address] [id number] [address] [place] [address], [place] [address] Jul, [facility] [address] [id number] [address] [place] [address], [place] [address] Jun, [facility] [address] [id number] [address] [place] [address], [place] [address] Jun, [facility] [address] [id number] [address] [place] [address], [place] [address] May, [facility] [address] [id number] [address] [place] [address], [place] [address] May, [facility] [address] [id number] [address] [place] [address], [place] [address] May, [facility] [address] [id number] [address] [place] [address], [place] [address] May, [facility] [address] [id number] [address] [place] [address], [place] [address] Apr, [facility] [address] [id number] [address] [place] [address], [place] [address] 27 Apr, 2012 [facility] [address] [id number] [address] [place] [address], [place] [address] 23 Apr, 2012 [facility] [address] [id number] [address] [place] [address], [place] [address] Apr, [facility] [address] [id number] [address] [place] [address], [place] [address] Apr, [facility] [address] [id number] [address] [place] [address], [place] [address] Apr, [facility] [address] [id number] [address] [place] [address], [place] [address] 14 Apr, 2012 [facility] [address] [id number] [address] [place] [address], [place] [address] Apr, [facility] [address] [id number] [address] [place] [address], [place] [address] Apr, [facility] [address] [id number] [address] [place] [address], [place] [address] Mar, [facility] [address] [id number] [address] [place] [address], [place] [address] Mar, [facility] [address] [id number] [address] [place] [address], [place] [address] Feb, [facility] [address] [id number] [address] [place] [address], [place] [address] Jan, [facility] [address] [id number] [address] [place] [address], [place] [address] Jan, [facility] [address] [id number] [address] [place] [address], [place] [address] Dec, [facility] [address] [id number] [address] [place] [address], [place] [address] Nov, [facility] [address] [id number] [address] [place] [address], [place] [address] Nov, [facility] [address] [id number] [address] [place] [address], [place] [address] October, [facility] [address] [id number] [address] [place] [address], [place] [address] October, [facility] [address] [id number] [address] [place] [address], [place] [address] Sep, [facility] [address] [id number] [address] [place] [address], [place] [address] Sep, [facility] [address] [id number] [address] [place] [address], [place] [address] May, [facility] [address] [id number] [address] [place] [address], [place] [address] Apr, [facility] [address] [id number] [address] [place] [address], [place] [address] Apr, [facility] [address] [id number] [address] [place] [address], [place] [address] Apr, [facility] [address] [id number] [address] [place] [address], [place] [address] Apr, [facility] [address] [id number] [address] [place] [id number] Apr, [facility] [address] [id number] [address] [place] [address] Apr, [facility] [address] [id number] [address] [place] [id number] Apr, [facility] [address] [id number] [address] [place] [address], [place] [address] Apr, [facility] [address] [id number] [address] [place] [address], [place] [address] Mar, [facility] [address] [id number] [address] [place] [id number] Mar, [facility] [address] [id number] [address] [place] [id number] Mar, [facility] [address] [facility] [id number] [address] [place] [id number] Mar, [facility] [address] [facility] [id number] [address] [place] [id number] Mar, [facility] [address] [facility] [id number] [address] [place] [id number] Mar, IMMUNIZATIONS No Known Immunizations SOCIAL HISTORY Never Assessed REASON FOR VISIT PLAN OF CARE VITAL SIGNS Height 62 in 2013-11-26 Weight 227.5 lbs 2013-11-26 Temperature 98.4 degrees Fahrenheit 2013-11-26 Heart Rate 88 bpm 2013-11-26 Respiratory Rate 18 2013-11-26 Blood pressure systolic 142 mmHg 2013-11-26 Blood pressure diastolic 80 mmHg 2013-11-26 MEDICATIONS Unknown Medications RESULTS No Results PROCEDURES [...]
--- OUTSIDE RECORDS SUMMARY | 2019-12-24 19:51 | XMS REPORT ---
Author Author Trey ANDRADE Organization [facility] Address [address] [place] [address] Care Team Providers Care Sack Cleaner Name Role Phone SURESH ANDRADE Unavailable PROBLEMS Type Condition ICD9-CM Code ELQ56-LM Code Onset Dates Condition S tatus SNOMED Code Problem Nondependent 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 Ac tive 475741908 Problem Other chronic pain G89.29 Active 1 17939802 Problem Unspecified epilepsy without mention of intractable ep ilepsy G40.909 Active 74608174 Problem Hyperlipidemia, unspecified E78.5 Ac tive 91106887 Problem Hypertension I10 Active 0894319 3 Problem Esophageal reflux K21.9 Active 23 3202802 Problem Rheumatoid arthritis M06.9 Active 68110145 Problem Cough R05 Active 41391016 Problem Acquired hypothyroidism E03.9 Active 885021997 Problem Unspecified open-angle glaucoma, stage unspecified H40.10X0 Feb, Active 94979476 Problem Presbyopia H52.4 Active 23151752 Problem Insomnia G47.00 Active 158895948 Problem Arthralgia M25.50 Active 33825523 Problem Thyroid nodule E04.1 Active 72217 5005 Problem Anxiety disorder, unspecified F41.9 Active 961277756 Problem Chronic tension-type headache, intractable G44.221 Active 932410332 Problem Neuropathy G62.9 Active 742924010 Problem Goiter E04.9 Active 7239813 Problem Multinodular goiter E04.2 Active 582106010 Problem Carpal tunnel syndrome of left wrist G56.02 Active 215923335474293 Problem Chronic obstructive pulmonary disease, unspecified COPD ty pe J44.9 Active 53501619 Problem BMI 40.0-44.9, adult Z68.41 Active 093098161 Problem Seasonal allergic rhinitis due to pollen J30.1 Active 53451569 Problem Depression F32.9 Active 57058540 Problem Essential hypertension I10 Active 76474990 Problem Depressive disorder F32.9 Active 06208345 Problem Right-sided low back pain without sciatica M54.5 Active 403876953 Problem Reactive airway disease with out complication, unspecified asthma severity, unspecified whether persistent J45.909 Active 998611119213 Problem Urge incontinence of urine N39.41 Act chen 21468198 Problem Abnormal laboratory test R89.9 Activ e 266998188 Problem COPD with exacerbation J44.1 Active 049170202 ALLERGIES No Information ENCOUNTERS Encounter Location Date Diagnosis [place] [address] [address] Feb, [place] [address] [address] Feb, Mass of right side of neck R 22.1 and Multinodular goiter E04.2 [place] [address] [address] Jan, Bronchitis J40 [place] [address] [address] October, Acquired hypothyroidism E03. 9 [place] [address] [address] October, Acute gastritis without hemo rrhage, unspecified gastritis type K29.00 ; Epigastric pain R10.13 ; Essential hypertension I10 ; Screening for colon cancer Z12.11 and BMI 40.0-44.9, adult Z68.41 [place] [address] [address] October, [facility] [place] [address] [address] October, Chest pain R07.9 and Morbid obesity E66.01 [facility] [place] [address] [address] Sep, Generalized abdominal pain R 10.84 ; Morbid obesity E66.01 ; Non-intractable vomiting with nausea, unspecified vomiting type R11.2 and Seasonal allergic rhinitis due to pollen J30.1 [facility] [address] [facility] [id number] [address] [place] [address] Jul, COPD with exacerbation J44.1 ; Viral upper respiratory tract infection J06.9 and Morbid obesity E66.01 [facility] [address] [facility] [id number] [address] [place] [address] Jun, Viral upper respiratory trac t infection J06.9 [facility] [address] [facility] [id number] [address] [place] [address] Apr, Abnormal laboratory test R89 .9 [place] [address] [facility] [id number] [address] [place] [address] Apr, Abnormal laboratory test R89 .9 [place] [address] [address] [place] [id number] [address] [place] [address] Apr, Abnormal laboratory test R89 .9 [place] [address] [place] [address] Apr, [place] [address] [place] [id number] [address] [place] [address] Apr, [place] [address] [address] Apr, Nonintractable episodic head ache, unspecified headache type R51 ; Urge incontinence of urine N39.41 ; BMI 40.0-44.9, adult Z68.41 ; Myalgia M79.10 and Acute cystitis without hematuria N30.00 [place] [address] [address] [place] [id number] [address] [place] [address] Mar, Nasal congestion R09.81 ; Lo w back pain M54.5 ; Reactive airway disease without complication, unspecified asthma severity, unspecified whether persistent J45.909 ; Other chronic pain G89.29 ; Acute cystitis with hematuria N30.01 and BMI 40.0-44.9, adult Z68.41 [place] [address] [address] [place] [id number] [address] [place] [address] Mar, Acute cystitis with hematuri a N30.01 [facility] [address] [address] Mar, BMI 40.0-44.9, adult Z68.41 ; Acute cystitis with hematuria N30.01 ; Acute bilateral low back pain without sciatica M54.5 and Nausea R11.0 [place] [address] [address] Mar, Hypertension I10 ; Acquired hypothyroidism E03.9 ; Esophageal reflux K21.9 ; Chronic obstructive pulmonary disease, unspecified COPD type J44.9 and BMI 40.0-44.9, adult Z68.41 [place] [address] [address] 15 Mar, 2018 Hypertension I10 [place] [address] [address] Nov, Hyperlipidemia, unspecified E78.5 [place] [address] [address] October, Chest pain, unspecified type R07.9 and Acquired hypothyroidism E03.9 [place] [address] [address] October, Chest pain, unspecified type R07.9 ; Family history of coronary artery disease Z82.49 ; Carpal tunnel syndrome of left wrist G56.02 ; Hypertension I10 ; Esophageal reflux K21.9 ; Arthralgia M25.50 ; Acquired hypothyroidism E03.9 ; Cough R05 ; Nausea R11.0 ; Weight gain R63.5 and BMI 45.0-49.9, adult Z68.42 [place] [address] [address] Jun, Acquired hypothyroidism E03. 9 and Cough R05 [place] [address] [address] May, [place] [address] [place] [address] Feb, Tarsal tunnel syndrome of timi th lower extremities G57.53 and Neuropathy G62.9 [place] [address] [address] [place] [id number] [address] [place] [address] Dec, Pleuritis R09.1 [place] [address] [address] Nov, [place] [address] [address] October, Arthralgia, unspecified join t M25.50 and Allergy, initial encounter T78.40XA [place] [address] [address] October, [place] [address] [address] October, Acute recurrent maxillary si nusitis J01.01 and Arthralgia M25.50 [place] [address] [address] [place] [id number] [address] [place] [address] Sep, Pharyngitis due to other org anism J02.8 [place] [address] [address] [place] [id number] [address] [place] [address] Aug, Acute nasopharyngitis J00 [place] [address] [address] Aug, Multinodular goiter E04.2 [place] [address] [address] [place] [id number] [address] [place] [address] Aug, Thyroid nodule E04.1 [place] [address] [address] [place] [id number] [address] [place] [address] Jul, Tarsal tunnel syndrome of timi th lower extremities G57.53 [place] [address] [place] [id number] [address] [place] [address] Jun, Pneumonia due to infectious organism, unspecified laterality, unspecified part of lung J18.9 [place] [address] [address] Jun, Bronchospasm with bronchitis , acute J20.9 [place] [address] [address] May, Acute non-recurrent frontal sinusitis J01.10 [place] [address] [address] May, Flat foot [pes planus] (acqu ired), left foot M21.42 ; Flat foot [pes planus] (acquired), right foot M21.41 and Neuropathy G62.9 [place] [address] [address] Apr, Chronic tension-type headach e, intractable G44.221 ; Right lower quadrant abdominal pain R10.31 ; Cervicalgia M54.2 ; Acute gastritis without hemorrhage, unspecified gastritis type K29.00 and Hypertension I10 [place] [address] [address] Mar, Depression F32.9 and Anxiety disorder, unspecified F41.9 [place] [address] [address] Feb, Depressive disorder F32.9 an d Anxiety disorder, unspecified F41.9 [place] [address] [address] Jan, Dysuria R30.0 ; Lower abdomi nal pain R10.30 ; Acute bilateral low back pain without sciatica M54.5 ; Nausea and vomiting, unspecified intactability, vomiting of unspecified type R11.2 ; Pain in right foot M79.671 and Pain of left foot M79.672 [place] [address] [address] Dec, Urinary tract infection, sit e not specified N39.0 [place] [address] [id number] [address] [place] [address] Dec, [facility] [address] [facility] [id number] [address] [place] [address] Nov, [facility] [address] [facility] [id number] [address] [place] [address] Nov, Dysuria R30.0 [facility] [address] [facility] [id number] [address] [place] [address] Nov, Dysuria R30.0 and Acute cyst itis with hematuria N30.01 [facility] [address] [facility] [id number] [address] [place] [address] October, Nausea R11.0 [facility] [address] [facility] [id number] [address] [place] [address] October, Thyroid nodule E04.1 ; Carpa l tunnel syndrome, left upper limb G56.02 ; Carpal tunnel syndrome, right upper limb G56.01 and Constipation, unspecified constipation type K59.00 [facility] [address] [facility] [id number] [address] [place] [address] October, [facility] [address] [facility] [id number] [address] [place] [address] October, Thyroid nodule E04.1 [facility] [address] [facility] [id number] [address] [place] [address] October, Cold thyroid nodule E04.1 [facility] [address] [facility] [id number] [address] [place] [address] October, [facility] [address] [facility] [id number] [address] [place] [address] Sep, Thyroid nodule E04.1 [facility] [address] [facility] [id number] [address] [place] [address] Sep, Thyroid nodule E04.1 [facility] [address] [facility] [id number] [address] [place] [address] Sep, Thyroid nodule E04.1 ; Hyper tension I10 ; Esophageal reflux K21.9 and Hyperlipidemia, unspecified E78.5 [place] [address] [address] Aug, Other chronic pain G89.29 ; Sinusitis J32.9 and Hypertension I10 [place] [address] [address] 29 Jul, 2015 [place] [address] [address] 15 Jul, 2015 [place] [address] [address] 10 Jul, 2015 Insomnia G47.00 and Arthralg ia M25.50 [place] [address] [address] 10 Jul, 2015 Depressive disorder F32.9 an d Anxiety disorder, unspecified F41.9 [place] [address] [address] May, Right-sided low back pain wi thout sciatica M54.5 and Depression F32.9 [place] [address] [address] [place] [id number] [address] [place] [address] Apr, Hematuria R31.9 [place] [address] [address] Mar, Other chronic pain G89.29 [place] [address] [address] Mar, Other chronic pain G89.29 [place] [address] [address] Feb, [place] [address] [address] Feb, Other chronic pain 338.29 ; Dysuria 788.1 ; UTI (urinary tract infection) 599.0 ; Insomnia 780.52 ; Hot flashes 627.2 and Hypertension 401.9 [facility] [address] [facility] [id number] [address] [place] [address] Feb, Dysuria 788.1 [facility] [address] [facility] [id number] [address] [place] [address] Feb, [facility] [address] [facility] [id number] [address] [place] [address] Jan, [facility] [address] [facility] [id number] [address] [place] [address] Jan, [facility] [address] [facility] [id number] [place] [address] Jan, Fibromyalgia 729.1 ; Hyperte nsion 401.9 ; Dysthymia 300.4 and Hot flashes 627.2 [facility] [address] [facility] [id number] [address] [place] [address] Dec, [facility] [address] [facility] [id number] [address] [place] [address] Dec, [facility] [address] [facility] [id number] [address] [place] [address] Dec, [facility] [address] [facility] [id number] [address] [place] [address] Nov, Other chronic pain 338.29 [facility] [address] [facility] [id number] [address] [place] [address] October, [facility] [address] [facility] [id number] [address] [place] [address] October, [facility] [address] [facility] [id number] [address] [place] [address] Sep, [facility] [address] [facility] [id number] [address] [place] [address] Sep, [facility] [address] [facility] [id number] [address] [place] [address] Aug, [facility] [address] [id number] [address] [place] [address], [place] [address] Aug, [facility] [address] [id number] [address] [place] [address], [place] [address] Aug, [facility] [address] [id number] [address] [place] [address], [place] [address] Aug, [facility] [address] [id number] [address] [place] [address], [place] [address] Aug, [facility] [address] [id number] [address] [place] [address], [place] [address] Aug, [facility] [address] [id number] [address] [place] [address], [place] [address] Aug, [facility] [address] [id number] [address] [place] [address], [place] [address] Aug, [facility] [address] [id number] [address] [place] [address], [place] [address] Aug, [facility] [address] [id number] [address] [place] [address], [place] [address] Aug, [facility] [address] [id number] [address] [place] [address], [place] [address] Aug, [facility] [address] [id number] [address] [place] [address], [place] [address] Aug, [facility] [address] [id number] [address] [place] [address], [place] [address] Aug, [facility] [address] [id number] [address] [place] [address], [place] [address] Aug, [facility] [address] [id number] [address] [place] [address], [place] [address] Jul, [facility] [address] [id number] [address] [place] [address], [place] [address] Jul, [facility] [address] [id number] [address] [place] [address], [place] [address] Jul, [facility] [address] [id number] [address] [place] [address], [place] [address] Jul, [facility] [address] [id number] [address] [place] [address], [place] [address] Jul, [facility] [address] [id number] [address] [place] [address], [place] [address] Jul, [facility] [address] [id number] [address] [place] [address], [place] [address] Jun, [facility] [address] [id number] [address] [place] [address], [place] [address] Jun, [facility] [address] [id number] [address] [place] [address], [place] [address] Jun, [facility] [address] [id number] [address] [place] [address], [place] [address] Jun, [facility] [address] [id number] [address] [place] [address], [place] [address] May, [facility] [address] [id number] [address] [place] [address], [place] [address] May, [facility] [address] [id number] [address] [place] [address], [place] [address] May, [facility] [address] [id number] [address] [place] [address], [place] [address] May, [facility] [address] [id number] [address] [place] [address], [place] [address] May, [facility] [address] [id number] [address] [place] [address], [place] [address] May, [facility] [address] [id number] [address] [place] [address], [place] [address] May, [facility] [address] [id number] [address] [place] [address], [place] [address] May, [facility] [address] [id number] [address] [place] [address], [place] [address] May, [facility] [address] [id number] [address] [place] [address], [place] [address] May, [facility] [address] [id number] [address] [place] [address], [place] [address] Apr, [facility] [address] [id number] [address] [place] [address] Apr, [facility] [address] [id number] [address] [place] [address], [place] [address] Apr, [facility] [address] [id number] [address] [place] [address], [place] [address] Apr, [facility] [address] [id number] [address] [place] [address], [place] [address] Apr, [facility] [address] [id number] [address] [place] [address], [place] [address] Apr, [facility] [address] [id number] [address] [place] [address], [place] [address] Apr, [facility] [address] [id number] [address] [place] [address], [place] [address] Apr, [facility] [address] [id number] [address] [place] [address] Apr, [facility] [address] [id number] [address] [place] [address] Mar, [facility] [address] [id number] [address] [place] [address], [place] [address] Mar, [facility] [address] [id number] [address] [place] [address], [place] [address] Mar, [facility] [address] [id number] [address] [place] [address], [place] [address] Mar, [facility] [address] [id number] [address] [place] [address], [place] [address] 08 Mar, 2013 [facility] [address] [id number] [address] [place] [address], [place] [address] Mar, [facility] [address] [id number] [address] [place] [address], [place] [address] Mar, [facility] [address] [id number] [address] [place] [address], [place] [address] 08 Mar, 2014 [facility] [address] [id number] [address] [place] [address], [place] [address] 30 Feb, 2013 [facility] [address] [id number] [address] [place] [address], [place] [address] 30 Feb, 2013 [facility] [address] [id number] [address] [place] [address], [place] [address] 24 Feb, 2013 [facility] [address] [id number] [address] [place] [address], [place] [address] 24 Feb, 2013 [facility] [address] [id number] [address] [place] [address], [place] [address] 22 Feb, 2013 [facility] [address] [id number] [address] [place] [address], [place] [address] 22 Feb, 2013 [facility] [address] [id number] [address] [place] [address], [place] [address] 10 Feb, 2013 [facility] [address] [id number] [address] [place] [address], [place] [address] 10 Feb, 2013 [facility] [address] [id number] [address] [place] [address], [place] [address] 03 Sep, 2013 [facility] [address] [id number] [address] [place] [address], [place] [address] 03 Sep, 2013 [facility] [address] [id number] [address] [place] [address], [place] [address] 03 Feb, 2013 [facility] [address] [id number] [address] [place] [address], [place] [address] Feb, [facility] [address] [id number] [address] [place] [address], [place] [address] Feb, [facility] [address] [id number] [address] [place] [address], [place] [address] Feb, [facility] [address] [id number] [address] [place] [address], [place] [address] Jan, [facility] [address] [id number] [address] [place] [address], [place] [address] Jan, [facility] [address] [id number] [address] [place] [address], [place] [address] Dec, [facility] [address] [id number] [address] [place] [address], [place] [address] Dec, [facility] [address] [id number] [address] [place] [address], [place] [address] Dec, [facility] [address] [id number] [address] [place] [address], [place] [address] Dec, [facility] [address] [id number] [address] [place] [address], [place] [id number] Dec, [facility] [address] [id number] [address] [place] [address], [place] [address] Dec, [facility] [address] [id number] [address] [place] [address], [place] [address] Dec, [facility] [address] [id number] [address] [place] [address], [place] [address] Dec, [facility] [address] [id number] [address] [place] [address], [place] [address] Dec, [facility] [address] [id number] [address] [place] [address], [place] [address] Dec, [facility] [address] [id number] [address] [place] [address], [place] [address] Dec, [facility] [address] [id number] [address] [place] [address], [place] [address] Dec, 2013 [facility] [address] [id number] [address] [place] [address], [place] [address] Dec, 2013 [facility] [address] [id number] [address] [place] [address], [place] [address] Dec, 2013 [facility] [address] [id number] [address] [place] [address], [place] [address] Dec, 2013 [facility] [address] [id number] [address] [place] [address], [place] [address] Dec, 2013 [facility] [address] [id number] [address] [place] [address], [place] [address] Dec, 2013 [facility] [address] [id number] [address] [place] [address], [place] [address] Dec, [facility] [address] [id number] [address] [place] [address], [place] [address] Dec, [facility] [address] [id number] [address] [place] [address], [place] [address] Nov, [facility] [address] [id number] [address] [place] [address], [place] [address] Nov, [facility] [address] [id number] [address] [place] [address], [place] [address] Nov, [facility] [facility] [address] [id number] [address] [place] [address], [place] [address] Nov, [facility] [address] [id number] [address] [place] [address], [place] [address] Nov, [facility] [address] [id number] [address] [place] [address], [place] [address] Nov, [facility] [address] [id number] [address] [place] [address], [place] [address] Nov, [facility] [address] [id number] [address] [place] [address], [place] [address] Nov, [facility] [address] [id number] [address] [place] [address], [place] [address] Nov, [facility] [address] [id number] [address] [place] [address], [place] [address] October, [facility] [address] [id number] [address] [place] [address], [place] [address] October, [facility] [address] [id number] [address] [place] [address], [place] [address] October, [facility] [address] [id number] [address] [place] [address], [place] [address] October, [facility] [address] [id number] [address] [place] [address], [place] [address] October, [facility] [address] [id number] [address] [place] [address], [place] [address] October, [facility] [address] [id number] [address] [place] [address], [place] [address] October, [facility] [address] [id number] [address] [place] [address], [place] [address] October, [facility] [address] [id number] [address] [place] [address], [place] [address] Sep, [facility] [address] [id number] [address] [place] [address], [place] [address] Sep, [facility] [address] [id number] [address] [place] [address], [place] [address] Sep, [facility] [address] [id number] [address] [place] [address], [place] [address] Sep, [facility] [address] [id number] [address] [place] [address], [place] [address] Sep, [facility] [address] [id number] [address] [place] [address], [place] [address] Sep, [facility] [address] [id number] [address] [place] [address], [place] [address] Sep, [facility] [address] [id number] [address] [place] [address], [place] [address] Aug, [facility] [address] [id number] [address] [place] [address], [place] [address] Aug, [facility] [address] [id number] [address] [place] [address], [place] [address] Aug, [facility] [address] [id number] [address] [place] [address], [place] [address] Aug, [facility] [address] [id number] [address] [place] [address], [place] [address] Aug, [facility] [address] [id number] [address] [place] [address], [place] [address] Aug, [facility] [address] [id number] [address] [place] [address], [place] [address] Jul, [facility] [address] [id number] [address] [place] [address], [place] [address] Jul, [facility] [address] [id number] [address] [place] [address], [place] [address] Jul, [facility] [address] [id number] [address] [place] [address], [place] [address] Jul, [facility] [address] [id number] [address] [place] [address], [place] [address] Jul, [facility] [address] [id number] [address] [place] [address], [place] [address] Jul, [facility] [address] [id number] [address] [place] [address], [place] [address] Jun, [facility] [address] [id number] [address] [place] [address], [place] [address] Jun, [facility] [address] [id number] [address] [place] [address], [place] [address] Jun, [facility] [address] [id number] [address] [place] [address], [place] [address] Jun, [facility] [address] [id number] [address] [place] [address], [place] [address] Jun, [facility] [address] [id number] [address] [place] [address], [place] [address] Jun, [facility] [address] [id number] [address] [place] [address], [place] [address] Jun, [facility] [address] [id number] [address] [place] [address], [place] [address] Jun, [facility] [address] [id number] [address] [place] [address], [place] [address] Jun, [facility] [address] [id number] [address] [place] [address], [place] [address] Jun, [facility] [address] [id number] [address] [place] [address], [place] [address] Jun, [facility] [address] [id number] [address] [place] [address], [place] [address] Jun, [facility] [address] [id number] [address] [place] [address], [place] [address] Jun, [facility] [address] [id number] [address] [place] [address], [place] [address] May, [facility] [address] [id number] [address] [place] [address], [place] [address] May, [facility] [address] [id number] [address] [place] [address], [place] [address] May, [facility] [address] [id number] [address] [place] [address], [place] [address] May, [facility] [address] [id number] [address] [place] [address], [place] [address] May, [facility] [address] [id number] [address] [place] [address], [place] [address] May, [facility] [address] [id number] [address] [place] [address], [place] [address] 14 May, 2013 [facility] [address] [id number] [address] [place] [address], [place] [address] 12 May, 2013 [facility] [address] [id number] [address] [place] [address], [place] [address] 12 May, 2013 [facility] [address] [id number] [address] [place] [address], [place] [address] May, [facility] [address] [id number] [address] [place] [address], [place] [address] 11 May, 2013 [facility] [address] [id number] [address] [place] [address], [place] [address] 10 May, 2013 [facility] [address] [id number] [address] [place] [address], [place] [address] May, [facility] [address] [id number] [address] [place] [address], [place] [address] May, [facility] [address] [id number] [address] [place] [address], [place] [address] May, [facility] [address] [id number] [address] [place] [address], [place] [address] 08 May, 2013 [facility] [address] [id number] [address] [place] [address], [place] [address] 07 May, 2013 [facility] [address] [id number] [address] [place] [address] 06 May, 2013 [facility] [address] [id number] [address] [place] [address], [place] [address] May, [facility] [address] [id number] [address] [place] [address], [place] [address] May, [facility] [address] [id number] [address] [place] [address], [place] [address] May, [facility] [address] [id number] [address] [place] [address] Apr, [facility] [address] [id number] [address] [place] [address], [place] [address] Apr, [facility] [address] [id number] [address] [place] [address], [place] [address] Apr, [facility] [address] [id number] [address] [place] [address], [place] [address] Apr, [facility] [address] [id number] [address] [place] [address], [place] [address] Mar, [facility] [address] [id number] [address] [place] [address], [place] [address] 23 Feb, 2013 [facility] [address] [id number] [address] [place] [address], [place] [address] 16 Feb, 2013 [facility] [address] [id number] [address] [place] [address], [place] [address] 13 Feb, 2013 [facility] [address] [id number] [address] [place] [address], [place] [address] 10 Feb, 2013 [facility] [address] [id number] [address] [place] [address], [place] [address] 09 Feb, 2013 [facility] [address] [id number] [address] [place] [address], [place] [address] 09 Feb, 2013 [facility] [address] [id number] [address] [place] [address], [place] [address] Jan, [facility] [address] [id number] [address] [place] [address], [place] [address] Jan, [facility] [address] [id number] [address] [place] [address], [place] [address] Jan, [facility] [address] [id number] [address] [place] [address], [place] [address] Dec, [facility] [address] [id number] [address] [place] [address], [place] [address] Dec, [facility] [address] [id number] [facility] [place] [address] 17 Dec, 2012 [facility] [address] [id number] [address] [place] [address], [place] [address] 15 Dec, 2012 [facility] [address] [id number] [address] [place] [address], [place] [address] Dec, [facility] [address] [id number] [address] [place] [address], [place] [address] Nov, [facility] [address] [id number] [address] [place] [address], [place] [address] Nov, [facility] [address] [id number] [address] [place] [address], [place] [address] Nov, [facility] [address] [id number] [address] [place] [address], [place] [address] Nov, [facility] [address] [id number] [address] [place] [address], [place] [address] Nov, [facility] [address] [id number] [address] [place] [address], [place] [address] 08 Nov, 2012 [facility] [address] [id number] [address] [place] [address], [place] [address] Nov, [facility] [address] [id number] [address] [place] [address], [place] [address] 06 Nov, 2012 [facility] [address] [id number] [address] [place] [address], [place] [address] Nov, [facility] [address] [id number] [address] [place] [address], [place] [address] Nov, [facility] [address] [id number] [address] [place] [address], [place] [address] October, [facility] [address] [id number] [address] [place] [address], [place] [address] October, [facility] [address] [id number] [address] [place] [address] [address] Sep, [facility] [address] [id number] [address] [place] [address], [place] [address] Sep, [facility] [address] [id number] [address] [place] [address], [place] [address] Sep, [facility] [address] [id number] [address] [place] [address], [place] [address] Sep, [facility] [address] [id number] [address] [place] [address], [place] [address] Sep, [facility] [address] [id number] [address] [place] [address], [place] [address] Aug, [facility] [address] [id number] [address] [place] [address], [place] [address] Aug, [facility] [address] [id number] [address] [place] [address], [place] [address] Jul, [facility] [address] [id number] [address] [place] [address], [place] [address] Jul, [facility] [address] [id number] [address] [place] [address], [place] [address] Jun, [facility] [address] [id number] [address] [place] [address], [place] [address] Jun, [facility] [address] [id number] [address] [place] [address], [place] [address] May, [facility] [address] [id number] [address] [place] [address], [place] [address] May, [facility] [address] [id number] [address] [place] [address], [place] [address] May, [facility] [address] [id number] [address] [place] [address], [place] [address] May, [facility] [address] [id number] [address] [place] [address], [place] [address] Apr, [facility] [address] [id number] [address] [place] [address], [place] [address] 27 Apr, 2012 [facility] [address] [id number] [address] [place] [address], [place] [address] 23 Apr, 2012 [facility] [address] [id number] [address] [place] [address], [place] [address] Apr, [facility] [address] [id number] [address] [place] [address], [place] [address] Apr, [facility] [address] [id number] [address] [place] [address], [place] [address] Apr, [facility] [address] [id number] [address] [place] [address], [place] [address] 14 Apr, 2012 [facility] [address] [id number] [address] [place] [address], [place] [address] Apr, [facility] [address] [id number] [address] [place] [address], [place] [address] Apr, [facility] [address] [id number] [address] [place] [address], [place] [address] Mar, [facility] [address] [id number] [address] [place] [address], [place] [address] Mar, [facility] [address] [id number] [address] [place] [address], [place] [address] Feb, [facility] [address] [id number] [address] [place] [address], [place] [address] Jan, [facility] [address] [id number] [address] [place] [address], [place] [address] Jan, [facility] [address] [id number] [address] [place] [address], [place] [address] Dec, [facility] [address] [id number] [address] [place] [address], [place] [address] Nov, [facility] [address] [id number] [address] [place] [address], [place] [address] Nov, [facility] [address] [id number] [address] [place] [address], [place] [address] October, [facility] [address] [id number] [address] [place] [address], [place] [address] October, [facility] [address] [id number] [address] [place] [address], [place] [address] Sep, [facility] [address] [id number] [address] [place] [address], [place] [address] Sep, [facility] [address] [id number] [address] [place] [address], [place] [address] May, [facility] [address] [id number] [address] [place] [address], [place] [address] Apr, [facility] [address] [id number] [address] [place] [address], [place] [address] Apr, [facility] [address] [id number] [address] [place] [address], [place] [address] Apr, [facility] [address] [id number] [address] [place] [address], [place] [address] Apr, [facility] [address] [id number] [address] [place] [address] Apr, [facility] [address] [id number] [address] [place] [address] Apr, [facility] [address] [id number] [address] [place] [address] Apr, [facility] [address] [id number] [address] [place] [address], [place] [address] Apr, [facility] [address] [id number] [address] [place] [address], [place] [address] Mar, [facility] [address] [id number] [address] [place] [address] Mar, [facility] [address] [id number] [address] [place] [address] Mar, [facility] [address] [facility] [id number] [address] [place] [address] Mar, [facility] [address] [facility] [id number] [address] [place] [address] Mar, [facility] [address] [facility] [id number] [address] [place] [address] Mar, IMMUNIZATIONS No Known Immunizations SOCIAL HISTORY [...] Stomach surgeryx3 Hospitalization History Mental floor at [facility]
--- OUTSIDE RECORDS SUMMARY | 2019-12-24 19:51 | XMS REPORT ---
Author Author Trey Quesada Organization [facility] Address [address] [place] [address] Care Team Providers Care Paper Products Printer Name Role Phone JAILENE Quesada Unavailable PROBLEMS Type Condition ICD9-CM Code [id number] Code Onset Dates Condition S tatus SNOMED Code Problem Nondependent 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 Ac tive 009395561 Problem Other chronic pain G89.29 Active 1 39892762 Problem Unspecified epilepsy without mention of intractable ep ilepsy G40.909 Active 28366707 Problem Hyperlipidemia, unspecified E78.5 Ac tive 33327877 Problem Hypertension I10 Active 3275577 3 Problem Esophageal reflux K21.9 Active 23 2363905 Problem Rheumatoid arthritis M06.9 Active 97176407 Problem Cough R05 Active 08110324 Problem Acquired hypothyroidism E03.9 Active 694343980 Problem Unspecified open-angle glaucoma, stage unspecified H40.10X0 Feb, Active 17181524 Problem Presbyopia H52.4 Active 32577600 Problem Insomnia G47.00 Active 576417959 Problem Arthralgia M25.50 Active 16303399 Problem Thyroid nodule E04.1 Active 19758 5005 Problem Anxiety disorder, unspecified F41.9 Active 258073460 Problem Chronic tension-type headache, intractable G44.221 Active 898070609 Problem Neuropathy G62.9 Active 691124937 Problem Goiter E04.9 Active 3034194 Problem Multinodular goiter E04.2 Active 540742453 Problem Carpal tunnel syndrome of left wrist G56.02 Active 980137617922127 Problem Chronic obstructive pulmonary disease, unspecified COPD ty pe J44.9 Active 79520388 Problem BMI 40.0-44.9, adult Z68.41 Active 117660321 Problem Seasonal allergic rhinitis due to pollen J30.1 Active 23767982 Problem Depression F32.9 Active 71815049 Problem Essential hypertension I10 Active 67437548 Problem Depressive disorder F32.9 Active 16851838 Problem Right-sided low back pain without sciatica M54.5 Active 988477003 Problem Reactive airway disease with out complication, unspecified asthma severity, unspecified whether persistent J45.909 Active 850420987296 Problem Urge incontinence of urine N39.41 Act chen 50181727 Problem Abnormal laboratory test R89.9 Activ e 442839264 Problem COPD with exacerbation J44.1 Active 420604301 ALLERGIES No Information ENCOUNTERS Encounter Location Date Diagnosis [place] [address] [address] Feb, [place] [address] [address] Feb, Mass of right side of neck R 22.1 and Multinodular goiter E04.2 [facility] [place] [address] [address] Jan, Bronchitis J40 [place] [address] [address] October, Acquired hypothyroidism E03. 9 [place] [address] [address] October, Acute gastritis without hemo rrhage, unspecified gastritis type K29.00 ; Epigastric pain R10.13 ; Essential hypertension I10 ; Screening for colon cancer Z12.11 and BMI 40.0-44.9, adult Z68.41 [place] [address] [address] [place] [id number] [address] [place] [address] October, [facility] [place] [address] [address] October, Chest pain R07.9 and Morbid obesity E66.01 [facility] [place] [address] [address] Sep, Generalized abdominal pain R 10.84 ; Morbid obesity E66.01 ; Non-intractable vomiting with nausea, unspecified vomiting type R11.2 and Seasonal allergic rhinitis due to pollen J30.1 [facility] [address] [facility] [id number] [address] [place] [address] Jul, COPD with exacerbation J44.1 ; Viral upper respiratory tract infection J06.9 and Morbid obesity E66.01 [facility] [address] [facility] [id number] [address] [place] [address] Jun, Viral upper respiratory trac t infection J06.9 [facility] [address] [facility] [id number] [address] [place] [address] Apr, Abnormal laboratory test R89 .9 [place] [address] [address] [place] [id number] [address] [place] [address] Apr, Abnormal laboratory test R89 .9 [place] [address] [address] [place] [id number] [address] [place] [address] Apr, Abnormal laboratory test R89 .9 [place] [id number] [place] [address] Apr, [place] [address] [place] [id number] [address] [place] [address] Apr, [place] [address] [place] [id number] [place] [address] Apr, Nonintractable episodic head ache, unspecified headache type R51 ; Urge incontinence of urine N39.41 ; BMI 40.0-44.9, adult Z68.41 ; Myalgia M79.10 and Acute cystitis without hematuria N30.00 [place] [id number] [address] [place] [address] Mar, Nasal congestion R09.81 ; Lo w back pain M54.5 ; Reactive airway disease without complication, unspecified asthma severity, unspecified whether persistent J45.909 ; Other chronic pain G89.29 ; Acute cystitis with hematuria N30.01 and BMI 40.0-44.9, adult Z68.41 [place] [address] [place] [address] Mar, Acute cystitis with hematuri a N30.01 [facility] [address] [address] Mar, BMI 40.0-44.9, adult Z68.41 ; Acute cystitis with hematuria N30.01 ; Acute bilateral low back pain without sciatica M54.5 and Nausea R11.[address] [address] 17 Mar, 2018 Hypertension I10 ; Acquired hypothyroidism E03.9 ; Esophageal reflux K21.9 ; Chronic obstructive pulmonary disease, unspecified COPD type J44.9 and BMI 40.0-44.9, adult Z68.41 [place] [address] [address] 15 Mar, 2018 Hypertension I10 [address] [address] Nov, Hyperlipidemia, unspecified E78.[address] [address] October, Chest pain, unspecified type R07.9 and Acquired hypothyroidism E03.9 [place] [address] [address] October, Chest pain, unspecified type R07.9 ; Family history of coronary artery disease Z82.49 ; Carpal tunnel syndrome of left wrist G56.02 ; Hypertension I10 ; Esophageal reflux K21.9 ; Arthralgia M25.50 ; Acquired hypothyroidism E03.9 ; Cough R05 ; Nausea R11.0 ; Weight gain R63.5 and BMI 45.0-49.9, adult Z68.42 [place] [address] [address] Jun, Acquired hypothyroidism E03. 9 and Cough R05 [address] [address] May, [place] [address] [place] [id number] [address] [place] [address] Feb, Tarsal tunnel syndrome of timi th lower extremities G57.53 and Neuropathy G62.9 [place] [address] [place] [id number] [address] [place] [address] Dec, Pleuritis R09.1 [place] [address] [place] [id number] [address] [place] [address] Nov, [place] [address] [address] October, Arthralgia, unspecified join t M25.50 and Allergy, initial encounter T78.40XA [place] [address] [address] October, [place] [address] [address] October, Acute recurrent maxillary si nusitis J01.01 and Arthralgia M25.50 [place] [address] [address] [place] [id number] [address] [place] [address] Sep, Pharyngitis due to other org anism J02.8 [place] [address] [place] [id number] [address] [place] [address] Aug, Acute nasopharyngitis J00 [place] [address] [address] Aug, Multinodular goiter E04.2 [place] [address] [place] [id number] [address] [place] [address] Aug, Thyroid nodule E04.1 [place] [address] [place] [id number] [address] [place] [address] Jul, Tarsal tunnel syndrome of timi th lower extremities G57.53 [place] [address] [place] [id number] [address] [place] [address] Jun, Pneumonia due to infectious organism, unspecified laterality, unspecified part of lung J18.9 [place] [address] [address] Jun, Bronchospasm with bronchitis , acute J20.9 [place] [address] [address] May, Acute non-recurrent frontal sinusitis J01.10 [place] [address] [address] May, Flat foot [pes planus] (acqu ired), left foot M21.42 ; Flat foot [pes planus] (acquired), right foot M21.41 and Neuropathy G62.9 [place] [address] [address] Apr, Chronic tension-type headach e, intractable G44.221 ; Right lower quadrant abdominal pain R10.31 ; Cervicalgia M54.2 ; Acute gastritis without hemorrhage, unspecified gastritis type K29.00 and Hypertension I10 [place] [address] [address] Mar, Depression F32.9 and Anxiety disorder, unspecified F41.9 [place] [address] [address] Feb, Depressive disorder F32.9 an d Anxiety disorder, unspecified F41.9 [place] [address] [address] Jan, Dysuria R30.0 ; Lower abdomi nal pain R10.30 ; Acute bilateral low back pain without sciatica M54.5 ; Nausea and vomiting, unspecified intactability, vomiting of unspecified type R11.2 ; Pain in right foot M79.671 and Pain of left foot M79.672 [place] [address] [address] Dec, Urinary tract infection, sit e not specified N39.0 [facility] [address] [id number] [address] [place] [address] Dec, [facility] [address] [facility] [id number] [address] [place] [address] Nov, [facility] [address] [facility] [id number] [address] [place] [address] Nov, Dysuria R30.0 [facility] [address] [facility] [id number] [address] [place] [address] Nov, Dysuria R30.0 and Acute cyst itis with hematuria N30.01 [facility] [address] [facility] [id number] [address] [place] [address] October, Nausea R11.0 [facility] [address] [facility] [id number] [address] [place] [address] October, Thyroid nodule E04.1 ; Carpa l tunnel syndrome, left upper limb G56.02 ; Carpal tunnel syndrome, right upper limb G56.01 and Constipation, unspecified constipation type K59.00 [facility] [address] [facility] [id number] [address] [place] [address] October, [facility] [address] [facility] [id number] [address] [place] [address] October, Thyroid nodule E04.1 [facility] [address] [facility] [id number] [address] [place] [address] October, Cold thyroid nodule E04.1 [facility] [address] [id number] [address] [place] [address] October, [facility] [address] [facility] [id number] [address] [place] [address] Sep, Thyroid nodule E04.1 [facility] [address] [facility] [id number] [address] [place] [address] Sep, Thyroid nodule E04.1 [facility] [address] [facility] [id number] [address] [place] [address] Sep, Thyroid nodule E04.1 ; Hyper tension I10 ; Esophageal reflux K21.9 and Hyperlipidemia, unspecified E78.5 [place] [address] [facility] [id number] [address] [place] [address] Aug, Other chronic pain G89.29 ; Sinusitis J32.9 and Hypertension I10 [place] [address] [facility] [id number] [address] [place] [address] 29 Jul, 2015 [place] [address] [place] [id number] [address] [place] [address] 15 Jul, 2015 [place] [address] [address] 10 Jul, 2015 Insomnia G47.00 and Arthralg ia M25.50 [place] [address] [place] [id number] [address] [place] [address] Jul, Depressive disorder F32.9 an d Anxiety disorder, unspecified F41.9 [place] [address] [place] [id number] [address] [place] [address] May, Right-sided low back pain wi thout sciatica M54.5 and Depression F32.9 [place] [address] [place] [id number] [address] [place] [address] Apr, Hematuria R31.9 [place] [address] [place] [id number] [address] [place] [address] Mar, Other chronic pain G89.29 [place] [address] [place] [id number] [address] [place] [address] Mar, Other chronic pain G89.29 [place] [address] [place] [id number] [address] [place] [address] Feb, [place] [address] [place] [id number] [address] [place] [address] Feb, Other chronic pain 338.29 ; Dysuria 788.1 ; UTI (urinary tract infection) 599.0 ; Insomnia 780.52 ; Hot flashes 627.2 and Hypertension 401.9 [facility] [address] [id number] [address] [place] [address] Feb, Dysuria 788.1 [facility] [address] [facility] [id number] [address] [place] [address] Feb, [facility] [address] [id number] [address] [place] [address] Jan, [facility] [address] [id number] [address] [place] [address] Jan, [facility] [address] [facility] [id number] [address] [place] [address] Jan, Fibromyalgia 729.1 ; Hyperte nsion 401.9 ; Dysthymia 300.4 and Hot flashes 627.2 [facility] [address] [facility] [id number] [address] [place] [address] Dec, [facility] [address] [facility] [id number] [address] [place] [address] Dec, [facility] [address] [facility] [id number] [address] [place] [address] Dec, [facility] [address] [facility] [id number] [address] [place] [address] Nov, Other chronic pain 338.29 [facility] [address] [id number] [address] [place] [address] October, [facility] [address] [facility] [id number] [address] [place] [address] October, [facility] [address] [facility] [id number] [address] [place] [address] Sep, [facility] [address] [facility] [id number] [address] [place] [address] Sep, [facility] [address] [id number] [address] [place] [address] [place] [address] Aug, [facility] [address] [id number] [address] [place] [address], [place] [address] Aug, [facility] [address] [id number] [address] [place] [address], [place] [address] Aug, [facility] [address] [id number] [address] [place] [address], [place] [address] Aug, [facility] [address] [id number] [address] [place] [address], [place] [address] Aug, [facility] [address] [id number] [address] [place] [address], [place] [address] Aug, [facility] [address] [id number] [address] [place] [address], [place] [address] Aug, [facility] [address] [id number] [address] [place] [address], [place] [address] Aug, [facility] [address] [id number] [address] [place] [address], [place] [address] Aug, [facility] [address] [id number] [address] [place] [address], [place] [address] Aug, [facility] [address] [id number] [address] [place] [address], [place] [address] Aug, [facility] [address] [id number] [address] [place] [address], [place] [address] Aug, [facility] [address] [id number] [address] [place] [address], [place] [address] Aug, [facility] [address] [id number] [address] [place] [address], [place] [address] Aug, [facility] [address] [id number] [address] [place] [address], [place] [address] Jul, [facility] [address] [id number] [address] [place] [address], [place] [address] Jul, [facility] [address] [id number] [address] [place] [address], [place] [address] Jul, [facility] [address] [id number] [address] [place] [address], [place] [address] Jul, [facility] [address] [id number] [address] [place] [address], [place] [address] Jul, [facility] [address] [id number] [address] [place] [address], [place] [address] Jul, [facility] [address] [id number] [address] [place] [address], [place] [address] Jun, [facility] [address] [id number] [address] [place] [address], [place] [address] Jun, [facility] [address] [id number] [address] [place] [address], [place] [address] Jun, [facility] [address] [id number] [address] [place] [address], [place] [address] Jun, [facility] [address] [id number] [address] [place] [address], [place] [address] May, [facility] [address] [id number] [address] [place] [address], [place] [address] May, [facility] [address] [id number] [address] [place] [address], [place] [address] May, [facility] [address] [id number] [address] [place] [address], [place] [address] May, [facility] [address] [id number] [address] [place] [address], [place] [address] May, [facility] [address] [id number] [address] [place] [address], [place] [address] May, [facility] [address] [id number] [address] [place] [address], [place] [address] May, [facility] [address] [id number] [address] [place] [address], [place] [address] May, [facility] [address] [id number] [address] [place] [address], [place] [address] May, [facility] [address] [id number] [address] [place] [address], [place] [address] May, [facility] [address] [id number] [address] [place] [address], [place] [address] Apr, [facility] [address] [id number] [address] [place] [address], [place] [address] Apr, [facility] [address] [id number] [address] [place] [address], [place] [address] Apr, [facility] [address] [id number] [address] [place] [address], [place] [address] Apr, [facility] [address] [id number] [address] [place] [address], [place] [address] Apr, [facility] [address] [id number] [address] [place] [address], [place] [address] Apr, [facility] [address] [id number] [address] [place] [address], [place] [address] Apr, [facility] [address] [id number] [address] [place] [address], [place] [address] Apr, [facility] [address] [id number] [address] [place] [address], [place] [address] Apr, [facility] [address] [id number] [address] [place] [address], [place] [address] Mar, [facility] [address] [id number] [address] [place] [address], [place] [address] Mar, [facility] [address] [id number] [address] [place] [address], [place] [address] Mar, [facility] [address] [id number] [address] [place] [address], [place] [address] Mar, [facility] [address] [id number] [facility] [place] [address] 08 Mar, 2013 [facility] [address] [id number] [address] [place] [address], [place] [address] 08 Mar, 2013 [facility] [address] [id number] [address] [place] [address], [place] [address] 08 Mar, 2013 [facility] [address] [id number] [address] [place] [address], [place] [address] 08 Mar, 2013 [facility] [address] [id number] [address] [place] [address], [place] [address] 30 Sep, 2013 [facility] [address] [id number] [address] [place] [address], [place] [address] 30 Sep, 2013 [facility] [address] [id number] [address] [place] [address], [place] [address] 24 Feb, 2013 [facility] [address] [id number] [address] [place] [address], [place] [address] 24 Feb, 2013 [facility] [address] [id number] [address] [place] [address], [place] [address] 22 Feb, 2013 [facility] [address] [id number] [address] [place] [address], [place] [address] 22 Feb, 2013 [facility] [address] [id number] [address] [place] [address], [place] [address] 10 Feb, 2013 [facility] [address] [id number] [address] [place] [address], [place] [id number] 10 Sep, 2013 [facility] [address] [id number] [address] [place] [address], [place] [id number] 03 Sep, 2013 [facility] [address] [id number] [address] [place] [address], [place] [id number] 03 Sep, 2013 [facility] [address] [id number] [address] [place] [address], [place] [id number] 03 Sep, 2013 [facility] [address] [id number] [address] [place] [address], [place] [id number] Feb, [facility] [address] [id number] [facility] [place] [address] Feb, [facility] [address] [id number] [address] [place] [address], [place] [id number] Feb, [facility] [address] [id number] [address] [place] [address], [place] [id number] Jan, [facility] [address] [id number] [address] [place] [address], [place] [id number] Jan, [facility] [address] [id number] [address] [place] [address], [place] [id number] Dec, [facility] [address] [id number] [address] [place] [address], [place] [id number] Dec, [facility] [address] [id number] [address] [place] [address], [place] [id number] Dec, [facility] [address] [id number] [address] [place] [address], [place] [id number] Dec, [facility] [address] [id number] [address] [place] [address], [place] [id number] Dec, [facility] [address] [id number] [address] [place] [address], [place] [id number] Dec, [facility] [address] [id number] [address] [place] [address], [place] [id number] Dec, [facility] [address] [id number] [address] [place] [address], [place] [id number] Dec, [facility] [address] [id number] [address] [place] [address], [place] [id number] Dec, [facility] [address] [id number] [address] [place] [address], [place] [id number] Dec, [facility] [address] [id number] [address] [place] [address], [place] [id number] Dec, [facility] [address] [id number] [address] [place] [address], [place] [id number] 14 Dec, 2013 [facility] [address] [id number] [address] [place] [address], [place] [id number] Dec, 2013 [facility] [address] [id number] [address] [place] [address], [place] [address] Dec, 2013 [facility] [address] [id number] [address] [place] [address], [place] [address] Dec, 2013 [facility] [address] [id number] [address] [place] [address], [place] [address] Dec, 2013 [facility] [address] [id number] [address] [place] [address], [place] [address] Dec, 2013 [facility] [address] [id number] [address] [place] [address], [place] [address] Dec, 2013 [facility] [address] [id number] [address] [place] [address], [place] [address] Dec, 2013 [facility] [address] [id number] [address] [place] [address], [place] [address] Nov, [facility] [address] [id number] [address] [place] [address], [place] [address] Nov, [facility] [address] [id number] [address] [place] [address], [place] [address] Nov, [facility] [address] [id number] [address] [place] [address], [place] [address] Nov, [facility] [address] [id number] [address] [place] [address], [place] [address] Nov, [facility] [address] [id number] [address] [place] [address], [place] [address] Nov, [facility] [address] [id number] [address] [place] [address], [place] [address] Nov, [facility] [address] [id number] [address] [place] [address], [place] [address] Nov, [facility] [address] [id number] [address] [place] [address], [place] [address] Nov, [facility] [address] [id number] [address] [place] [address], [place] [address] October, [facility] [address] [id number] [address] [place] [address], [place] [address] October, [facility] [address] [id number] [address] [place] [address], [place] [address] October, [facility] [address] [id number] [address] [place] [address], [place] [address] October, [facility] [address] [id number] [address] [place] [address], [place] [address] October, [facility] [address] [id number] [address] [place] [address], [place] [address] October, [facility] [address] [id number] [address] [place] [address], [place] [address] October, [facility] [address] [id number] [address] [place] [address], [place] [address] October, [facility] [address] [id number] [address] [place] [address], [place] [address] Sep, [facility] [address] [id number] [address] [place] [address], [place] [address] Sep, [facility] [address] [id number] [address] [place] [address], [place] [address] Sep, [facility] [address] [id number] [address] [place] [address], [place] [address] Sep, [facility] [address] [id number] [address] [place] [address], [place] [address] Sep, [facility] [address] [id number] [address] [place] [address], [place] [address] Sep, [facility] [address] [id number] [address] [place] [address], [place] [address] Sep, [facility] [address] [id number] [address] [place] [address], [place] [address] Aug, [facility] [address] [id number] [address] [place] [address], [place] [address] Aug, [facility] [address] [id number] [address] [place] [address], [place] [address] Aug, [facility] [address] [id number] [address] [place] [address], [place] [address] Aug, [facility] [address] [id number] [address] [place] [address], [place] [address] Aug, [facility] [address] [id number] [address] [place] [address], [place] [address] Aug, [facility] [address] [id number] [address] [place] [address], [place] [address] Jul, [facility] [address] [id number] [address] [place] [address], [place] [address] Jul, [facility] [address] [id number] [address] [place] [address], [place] [address] Jul, [facility] [address] [id number] [address] [place] [address], [place] [address] Jul, [facility] [address] [id number] [address] [place] [address], [place] [address] Jul, [facility] [address] [id number] [address] [place] [address], [place] [address] Jul, [facility] [address] [id number] [address] [place] [address], [place] [address] Jun, [facility] [address] [id number] [address] [place] [address], [place] [address] Jun, [facility] [address] [id number] [address] [place] [address], [place] [address] Jun, [facility] [address] [id number] [address] [place] [address], [place] [address] Jun, [facility] [address] [id number] [address] [place] [address], [place] [address] Jun, [facility] [address] [id number] [address] [place] [address], [place] [address] Jun, [facility] [address] [id number] [address] [place] [address], [place] [address] Jun, [facility] [address] [id number] [address] [place] [address], [place] [address] Jun, [facility] [address] [id number] [address] [place] [address], [place] [address] Jun, [facility] [address] [id number] [address] [place] [address], [place] [address] Jun, [facility] [address] [id number] [address] [place] [address], [place] [address] Jun, [facility] [address] [id number] [address] [place] [address], [place] [address] Jun, [facility] [address] [id number] [address] [place] [address], [place] [address] Jun, [facility] [address] [id number] [address] [place] [address], [place] [address] May, [facility] [address] [id number] [address] [place] [address], [place] [address] May, [facility] [address] [id number] [address] [place] [address], [place] [address] May, [facility] [address] [id number] [address] [place] [address], [place] [address] May, [facility] [address] [id number] [address] [place] [address], [place] [address] May, [facility] [address] [id number] [address] [place] [address] [address] 14 May, 2013 [facility] [address] [id number] [address] [place] [address], [place] [address] 14 May, 2013 [facility] [address] [id number] [address] [place] [address], [place] [address] 12 May, 2013 [facility] [address] [id number] [address] [place] [address], [place] [address] 12 May, 2013 [facility] [address] [id number] [address] [place] [address], [place] [address] 11 May, 2013 [facility] [address] [id number] [address] [place] [address], [place] [address] 11 May, 2013 [facility] [address] [id number] [address] [place] [address], [place] [address] 10 May, 2013 [facility] [address] [id number] [address] [place] [address], [place] [address] May, [facility] [address] [id number] [address] [place] [address], [place] [address] May, [facility] [address] [id number] [address] [place] [address], [place] [address] May, [facility] [address] [id number] [address] [place] [address], [place] [address] 08 May, 2013 [facility] [address] [id number] [address] [place] [address], [place] [address] 07 May, 2013 [facility] [address] [id number] [address] [place] [address], [place] [address] 06 May, 2013 [facility] [address] [id number] [address] [place] [address], [place] [address] May, [facility] [address] [id number] [address] [place] [address], [place] [address] 06 May, 2013 [facility] [address] [id number] [address] [place] [address], [place] [address] May, [facility] [address] [id number] [address] [place] [address], [place] [address] Apr, [facility] [address] [id number] [address] [place] [address], [place] [address] Apr, [facility] [address] [id number] [address] [place] [address], [place] [address] Apr, [facility] [address] [id number] [address] [place] [address], [place] [address] Apr, [facility] [address] [id number] [address] [place] [address], [place] [address] 08 Mar, 2013 [facility] [address] [id number] [address] [place] [address], [place] [address] 23 Feb, 2013 [facility] [address] [id number] [address] [place] [address], [place] [address] 16 Feb, 2013 [facility] [address] [id number] [address] [place] [address], [place] [address] 13 Feb, 2013 [facility] [address] [id number] [address] [place] [address], [place] [address] 10 Feb, 2013 [facility] [address] [id number] [address] [place] [address], [place] [address] 09 Feb, 2013 [facility] [address] [id number] [address] [place] [address], [place] [address] 09 Feb, 2013 [facility] [address] [id number] [address] [place] [address], [place] [address] Jan, [facility] [address] [id number] [address] [place] [address], [place] [address] Jan, [facility] [address] [id number] [address] [place] [address], [place] [address] Jan, [facility] [address] [id number] [address] [place] [address], [place] [address] Dec, [facility] [address] [id number] [address] [place] [address], [place] [address] Dec, [facility] [address] [id number] [address] [place] [address], [place] [address] 17 Dec, 2012 [facility] [address] [id number] [address] [place] [address], [place] [address] Dec, [facility] [address] [id number] [address] [place] [address], [place] [address] Dec, [facility] [address] [id number] [address] [place] [address], [place] [address] Nov, [facility] [address] [id number] [address] [place] [address], [place] [address] Nov, [facility] [address] [id number] [address] [place] [address], [place] [address] Nov, [facility] [address] [id number] [address] [place] [address], [place] [address] Nov, [facility] [address] [id number] [address] [place] [address], [place] [address] Nov, [facility] [address] [id number] [address] [place] [address], [place] [address] Nov, [facility] [address] [id number] [address] [place] [address], [place] [address] Nov, [facility] [address] [id number] [address] [place] [address], [place] [address] Nov, [facility] [address] [id number] [address] [place] [address], [place] [address] Nov, [facility] [address] [id number] [address] [place] [address], [place] [address] Nov, [facility] [address] [id number] [address] [place] [address], [place] [address] October, [facility] [address] [id number] [address] [place] [address], [place] [address] October, [facility] [address] [id number] [address] [place] [address], [place] [address] Sep, [facility] [address] [id number] [address] [place] [address], [place] [address] Sep, [facility] [address] [id number] [address] [place] [address], [place] [address] Sep, [facility] [address] [id number] [address] [place] [address], [place] [address] Sep, [facility] [address] [id number] [address] [place] [address], [place] [address] Sep, [facility] [address] [id number] [address] [place] [address], [place] [address] Aug, [facility] [address] [id number] [address] [place] [address], [place] [address] Aug, [facility] [address] [id number] [address] [place] [address], [place] [address] Jul, [facility] [address] [id number] [address] [place] [address], [place] [address] Jul, [facility] [address] [id number] [address] [place] [address], [place] [address] Jun, [facility] [address] [id number] [address] [place] [address], [place] [address] Jun, [facility] [address] [id number] [address] [place] [address], [place] [address] May, [facility] [address] [id number] [address] [place] [address], [place] [address] May, [facility] [address] [id number] [address] [place] [address], [place] [address] May, [facility] [address] [id number] [address] [place] [address], [place] [address] May, [facility] [address] [id number] [address] [place] [address], [place] [address] Apr, [facility] [address] [id number] [address] [place] [address], [place] [address] 27 Apr, 2012 [facility] [address] [id number] [address] [place] [address], [place] [address] 23 Apr, 2012 [facility] [address] [id number] [address] [place] [address], [place] [address] Apr, [facility] [address] [id number] [address] [place] [address], [place] [address] Apr, [facility] [address] [id number] [address] [place] [address], [place] [address] Apr, [facility] [address] [id number] [address] [place] [address], [place] [address] Apr, [facility] [address] [id number] [address] [place] [address], [place] [address] Apr, [facility] [address] [id number] [address] [place] [address], [place] [address] Apr, [facility] [address] [id number] [address] [place] [address], [place] [address] Mar, [facility] [address] [id number] [address] [place] [address], [place] [address] Mar, [facility] [address] [id number] [address] [place] [address], [place] [address] Feb, [facility] [address] [id number] [address] [place] [address], [place] [address] Jan, [facility] [address] [id number] [address] [place] [address], [place] [address] Jan, [facility] [address] [id number] [address] [place] [address], [place] [address] Dec, [facility] [address] [id number] [address] [place] [address], [place] [address] Nov, [facility] [address] [id number] [address] [place] [address], [place] [address] Nov, [facility] [address] [id number] [address] [place] [address], [place] [address] October, [facility] [address] [id number] [address] [place] [address], [place] [address] October, [facility] [address] [id number] [address] [place] [address], [place] [address] Sep, [facility] [address] [id number] [address] [place] [address], [place] [address] Sep, [facility] [address] [id number] [address] [place] [address], [place] [address] May, [facility] [address] [id number] [address] [place] [address], [place] [address] Apr, [facility] [address] [id number] [address] [place] [address], [place] [address] Apr, [facility] [address] [id number] [address] [place] [address], [place] [address] Apr, [facility] [address] [id number] [address] [place] [address], [place] [address] Apr, [facility] [address] [id number] [address] [place] [address] Apr, [facility] [address] [id number] [address] [place] [address], [place] [address] Apr, [facility] [address] [id number] [address] [place] [address] Apr, [facility] [address] [id number] [address] [place] [address], [place] [address] Apr, [facility] [address] [id number] [address] [place] [address], [place] [address] Mar, [facility] [address] [id number] [address] [place] [address], [place] [address] Mar, [facility] [address] [id number] [address] [place] [id number] Mar, [facility] [address] [facility] [id number] [address] [place] [address] Mar, [facility] [address] [facility] [id number] [address] [place] [address] Mar, [facility] [address] [facility] [id number] [address] [place] [id number] Mar, IMMUNIZATIONS No Known Immunizations SOCIAL HISTORY Never Assessed REASON FOR VISIT PLAN OF CARE VITAL SIGNS Height 62 in 2014-05-10 Weight 234.4 lbs 2014-05-10 Temperature 98.6 degrees Fahrenheit 2014-05-10 Heart Rate 76 bpm 2014-05-10 Respiratory Rate 18 2014-05-10 Blood pressure systolic 120 mmHg 2014-05-10 Blood pressure diastolic 70 mmHg 2014-05-10 MEDICATIONS Unknown Medications RESULTS No Results PROCEDURES Procedure Date Ordered Result Body Site CULTURE, BACTERIA, OTHER May 10, 2014 INSTRUCTIONS MEDICATIONS ADMINISTERED No Known Medications MEDICAL (GENERAL) HISTORY Type Description Date Medical History HTN Medical History Depression Medical History Arthritis Medical History COPD Surgical History Breast lump removed Surgical History Removal of cyst from ovary Surgical History cholecystectomy Surgical History Stomach surgeryx3 Hospitalization History Mental floor at [facility]
--- OUTSIDE RECORDS SUMMARY | 2019-12-24 19:52 | XMS REPORT ---
Author Author Trey ANDRADE Organization [facility] Address [address] [place] [address] Care Team Providers Care Chronic Manager Name Role Phone SURESH ANDRADE Unavailable PROBLEMS Type Condition ICD9-CM Code [id number] Code Onset Dates Condition S tatus SNOMED Code Problem Nondependent 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 Ac tive 436062658 Problem Other chronic pain G89.29 Active 1 46147637 Problem Unspecified epilepsy without mention of intractable ep ilepsy G40.909 Active 18521253 Problem Hyperlipidemia, unspecified E78.5 Ac tive 04349755 Problem Hypertension I10 Active 0235953 3 Problem Esophageal reflux K21.9 Active 23 7964359 Problem Rheumatoid arthritis M06.9 Active 67226001 Problem Cough R05 Active 50875315 Problem Acquired hypothyroidism E03.9 Active 861557704 Problem Unspecified open-angle glaucoma, stage unspecified H40.10X0 Feb, Active 68337809 Problem Presbyopia H52.4 Active 79519002 Problem Insomnia G47.00 Active 293696523 Problem Arthralgia M25.50 Active 95033580 Problem Thyroid nodule E04.1 Active 16406 5005 Problem Anxiety disorder, unspecified F41.9 Active 338918802 Problem Chronic tension-type headache, intractable G44.221 Active 498587418 Problem Neuropathy G62.9 Active 270851771 Problem Goiter E04.9 Active 6086966 Problem Multinodular goiter E04.2 Active 729893800 Problem Carpal tunnel syndrome of left wrist G56.02 Active 451820892891213 Problem Chronic obstructive pulmonary disease, unspecified COPD ty pe J44.9 Active 82738809 Problem BMI 40.0-44.9, adult Z68.41 Active 672802574 Problem Seasonal allergic rhinitis due to pollen J30.1 Active 54618071 Problem Depression F32.9 Active 65192952 Problem Essential hypertension I10 Active 40928907 Problem Depressive disorder F32.9 Active 73446005 Problem Right-sided low back pain without sciatica M54.5 Active 135889859 Problem Reactive airway disease with out complication, unspecified asthma severity, unspecified whether persistent J45.909 Active 107527014251 Problem Urge incontinence of urine N39.41 Act chen 22410710 Problem Abnormal laboratory test R89.9 Activ e 415940053 Problem COPD with exacerbation J44.1 Active 220480869 ALLERGIES No Information ENCOUNTERS Encounter Location Date Diagnosis [place] [address] [address] Feb, [place] [address] [address] Feb, [place] [address] [address] Feb, Mass of right side of neck R 22.1 and Multinodular goiter E04.2 [facility] [place] [address] [address] Jan, Bronchitis J40 [place] [address] [address] October, Acquired hypothyroidism E03. 9 [place] [address] [address] October, Acute gastritis without hemo rrhage, unspecified gastritis type K29.00 ; Epigastric pain R10.13 ; Essential hypertension I10 ; Screening for colon cancer Z12.11 and BMI 40.0-44.9, adult Z68.41 [place] [address] [address] October, [facility] [place] [address] [address] October, Chest pain R07.9 and Morbid obesity E66.01 [facility] [place] [address] [address] 19 Apr, 2019 Generalized abdominal pain R 10.84 ; Morbid obesity E66.01 ; Non-intractable vomiting with nausea, unspecified vomiting type R11.2 and Seasonal allergic rhinitis due to pollen J30.1 [facility] [address] [facility] [id number] [address] [place] [address] 28 Jul, 2018 COPD with exacerbation J44.1 ; Viral upper respiratory tract infection J06.9 and Morbid obesity E66.01 [facility] [address] [facility] [id number] [address] [place] [address] Jun, Viral upper respiratory trac t infection J06.9 [place] [address] [facility] [id number] [address] [place] [address] Apr, Abnormal laboratory test R89 .9 [place] [address] [place] [id number] [address] [place] [address] Apr, Abnormal laboratory test R89 .9 [place] [address] [place] [id number] [address] [place] [address] Apr, Abnormal laboratory test R89 .9 [place] [address] [facility] [id number] [address] [place] [address] Apr, [place] [address] [facility] [id number] [address] [place] [address] Apr, [place] [address] [place] [id number] [address] [place] [address] Apr, Nonintractable episodic head ache, unspecified headache type R51 ; Urge incontinence of urine N39.41 ; BMI 40.0-44.9, adult Z68.41 ; Myalgia M79.10 and Acute cystitis without hematuria N30.00 [place] [address] [facility] [id number] [address] [place] [address] Mar, Nasal congestion R09.81 ; Lo w back pain M54.5 ; Reactive airway disease without complication, unspecified asthma severity, unspecified whether persistent J45.909 ; Other chronic pain G89.29 ; Acute cystitis with hematuria N30.01 and BMI 40.0-44.9, adult Z68.41 [facility] [address] [address] Mar, Acute cystitis with hematuri a N30.01 [facility] [address] [address] Mar, BMI 40.0-44.9, adult Z68.41 ; Acute cystitis with hematuria N30.01 ; Acute bilateral low back pain without sciatica M54.5 and Nausea R11.0 [place] [address] [address] 17 Mar, 2018 Hypertension I10 ; Acquired hypothyroidism E03.9 ; Esophageal reflux K21.9 ; Chronic obstructive pulmonary disease, unspecified COPD type J44.9 and BMI 40.0-44.9, adult Z68.[address] [address] Mar, Hypertension I10 [place] [address] [address] Nov, Hyperlipidemia, unspecified E78.[address] [address] October, Chest pain, unspecified type R07.9 and Acquired hypothyroidism E03.[address] [address] October, Chest pain, unspecified type R07.9 ; Family history of coronary artery disease Z82.49 ; Carpal tunnel syndrome of left wrist G56.02 ; Hypertension I10 ; Esophageal reflux K21.9 ; Arthralgia M25.50 ; Acquired hypothyroidism E03.9 ; Cough R05 ; Nausea R11.0 ; Weight gain R63.5 and BMI 45.0-49.9, adult Z68.42 [place] [address] [address] Jun, Acquired hypothyroidism E03. 9 and Cough R05 [place] [address] [place] [address] May, [place] [address] [address] Feb, Tarsal tunnel syndrome of timi th lower extremities G57.53 and Neuropathy G62.9 [place] [address] [address] Dec, Pleuritis R09.1 [place] [address] [address] Nov, [place] [address] [address] October, Arthralgia, unspecified join t M25.50 and Allergy, initial encounter T78.40XA [place] [address] [address] October, [place] [address] [address] October, Acute recurrent maxillary si nusitis J01.01 and Arthralgia M25.50 [place] [address] [address] Sep, Pharyngitis due to other org anism J02.8 [place] [address] [address] Aug, Acute nasopharyngitis J00 [place] [address] [address] Aug, Multinodular goiter E04.2 [place] [address] [address] Aug, Thyroid nodule E04.1 [place] [address] [place] [id number] [address] [place] [address] Jul, Tarsal tunnel syndrome of timi th lower extremities G57.53 [place] [address] [address] Jun, Pneumonia due to infectious organism, unspecified laterality, unspecified part of lung J18.9 [place] [address] [address] Jun, Bronchospasm with bronchitis , acute J20.9 [place] [address] [address] May, Acute non-recurrent frontal sinusitis J01.10 [place] [address] [address] May, Flat foot [pes planus] (acqu ired), left foot M21.42 ; Flat foot [pes planus] (acquired), right foot M21.41 and Neuropathy G62.[address] [address] Apr, Chronic tension-type headach e, intractable G44.221 ; Right lower quadrant abdominal pain R10.31 ; Cervicalgia M54.2 ; Acute gastritis without hemorrhage, unspecified gastritis type K29.00 and Hypertension I10 [address] [address] Mar, Depression F32.9 and Anxiety disorder, unspecified F41.9 [place] [address] [address] Feb, Depressive disorder F32.9 an d Anxiety disorder, unspecified F41.[address] [address] Jan, Dysuria R30.0 ; Lower abdomi nal pain R10.30 ; Acute bilateral low back pain without sciatica M54.5 ; Nausea and vomiting, unspecified intactability, vomiting of unspecified type R11.2 ; Pain in right foot M79.671 and Pain of left foot M79.[address] [place] [address] Dec, Urinary tract infection, sit e not specified N39.0 [facility] [address] [facility] [id number] [address] [place] [address] Dec, [facility] [address] [place] [id number] [address] [place] [address] Nov, [facility] [address] [address] Nov, Dysuria R30.0 [facility] [address] [place] [id number] [place] [address] Nov, Dysuria R30.0 and Acute cyst itis with hematuria N30.01 [facility] [address] [place] [id number] [address] [place] [address] October, Nausea R11.0 [facility] [address] [address] October, Thyroid nodule E04.1 ; Carpa l tunnel syndrome, left upper limb G56.02 ; Carpal tunnel syndrome, right upper limb G56.01 and Constipation, unspecified constipation type K59.00 [facility] [address] [place] [id number] [address] [place] [address] October, [facility] [address] [place] [id number] [address] [place] [address] October, Thyroid nodule E04.1 [facility] [address] [place] [id number] [address] [place] [address] October, Cold thyroid nodule E04.1 [facility] [address] [place] [id number] [address] [place] [address] October, [facility] [address] [place] [id number] [address] [place] [address] Sep, Thyroid nodule E04.1 [facility] [address] [place] [id number] [address] [place] [address] Sep, Thyroid nodule E04.1 [place] [address] [address] Sep, Thyroid nodule E04.1 ; Hyper tension I10 ; Esophageal reflux K21.9 and Hyperlipidemia, unspecified E78.5 [place] [address] [place] [id number] [address] [place] [address] 14 Aug, 2015 Other chronic pain G89.29 ; Sinusitis J32.9 and Hypertension I10 [place] [address] [address] 29 Jul, 2015 [place] [address] [address] 15 Jul, 2015 [place] [address] [address] 10 Jul, 2015 Insomnia G47.00 and Arthralg ia M25.50 [place] [address] [address] 10 Jul, 2015 Depressive disorder F32.9 an d Anxiety disorder, unspecified F41.9 [place] [address] [address] May, Right-sided low back pain wi thout sciatica M54.5 and Depression F32.9 [place] [address] [address] Apr, Hematuria R31.9 [place] [address] [place] [id number] [address] [place] [address] Mar, Other chronic pain G89.29 [place] [address] [address] Mar, Other chronic pain G89.29 [place] [address] [place] [id number] [address] [place] [address] Feb, [place] [address] [address] Feb, Other chronic pain 338.29 ; Dysuria 788.1 ; UTI (urinary tract infection) 599.0 ; Insomnia 780.52 ; Hot flashes 627.2 and Hypertension 401.9 [facility] [address] [facility] [id number] [address] [place] [address] Feb, Dysuria 788.1 [facility] [address] [facility] [id number] [address] [place] [address] Feb, [facility] [address] [facility] [id number] [address] [place] [address] Jan, [facility] [address] [facility] [id number] [address] [place] [address] Jan, [facility] [address] [place] [id number] [address] [place] [address] Jan, Fibromyalgia 729.1 ; Hyperte nsion 401.9 ; Dysthymia 300.4 and Hot flashes 627.2 [facility] [address] [facility] [id number] [address] [place] [address] Dec, [facility] [address] [facility] [id number] [address] [place] [address] Dec, [facility] [address] [facility] [id number] [address] [place] [address] Dec, [facility] [address] [facility] [id number] [address] [place] [address] Nov, Other chronic pain 338.29 [facility] [address] [facility] [id number] [address] [place] [address] October, [facility] [address] [facility] [id number] [address] [place] [address] October, [facility] [address] [facility] [id number] [address] [place] [address] Sep, [facility] [address] [facility] [id number] [address] [place] [address] Sep, [facility] [address] [id number] [facility] [place] [address] Aug, [facility] [address] [id number] [address] [place] [address], [place] [address] Aug, [facility] [address] [id number] [address] [place] [address], [place] [address] Aug, [facility] [address] [id number] [address] [place] [address], [place] [address] Aug, [facility] [address] [id number] [address] [place] [address], [place] [address] Aug, [facility] [address] [id number] [address] [place] [address], [place] [address] Aug, [facility] [address] [id number] [address] [place] [address], [place] [address] Aug, [facility] [address] [id number] [address] [place] [address], [place] [address] Aug, [facility] [address] [id number] [address] [place] [address], [place] [address] Aug, [facility] [address] [id number] [address] [place] [address], [place] [address] Aug, [facility] [address] [id number] [address] [place] [address], [place] [address] Aug, [facility] [address] [id number] [address] [place] [address], [place] [address] Aug, [facility] [address] [id number] [address] [place] [address], [place] [address] Aug, [facility] [address] [id number] [address] [place] [address], [place] [address] Aug, [facility] [address] [id number] [address] [place] [address], [place] [address] Jul, [facility] [address] [id number] [address] [place] [address], [place] [address] Jul, [facility] [address] [id number] [address] [place] [address], [place] [address] Jul, 2014 [facility] [address] [id number] [address] [place] [address], [place] [address] Jul, 2014 [facility] [address] [id number] [address] [place] [address], [place] [address] Jul, [facility] [address] [id number] [address] [place] [address], [place] [address] Jul, [facility] [address] [id number] [address] [place] [address], [place] [address] Jun, [facility] [address] [id number] [address] [place] [address], [place] [address] Jun, [facility] [address] [id number] [address] [place] [address], [place] [address] Jun, [facility] [address] [id number] [address] [place] [address], [place] [address] Jun, [facility] [address] [id number] [address] [place] [address], [place] [address] May, [facility] [address] [id number] [address] [place] [address], [place] [address] May, [facility] [address] [id number] [address] [place] [address], [place] [address] May, [facility] [address] [id number] [address] [place] [address], [place] [address] May, [facility] [address] [id number] [address] [place] [address], [place] [address] May, [facility] [address] [id number] [address] [place] [address], [place] [address] May, [facility] [address] [id number] [place] [address] May, [facility] [address] [id number] [address] [place] [address], [place] [address] May, [facility] [address] [id number] [address] [place] [address], [place] [address] May, [facility] [address] [id number] [address] [place] [address], [place] [address] May, [facility] [address] [id number] [address] [place] [address] Apr, [facility] [address] [id number] [address] [place] [address], [place] [address] Apr, [facility] [address] [id number] [address] [place] [address], [place] [address] Apr, [facility] [address] [id number] [address] [place] [address], [place] [address] Apr, [facility] [address] [id number] [address] [place] [address], [place] [address] Apr, [facility] [address] [id number] [address] [place] [address], [place] [address] Apr, [facility] [address] [id number] [address] [place] [address], [place] [address] Apr, [facility] [address] [id number] [address] [place] [address] Apr, [facility] [address] [id number] [address] [place] [address] Apr, [facility] [address] [id number] [address] [place] [address], [place] [address] Mar, [facility] [address] [id number] [address] [place] [address], [place] [address] Mar, [facility] [address] [id number] [address] [place] [address] Mar, [facility] [address] [id number] [address] [place] [address], [place] [address] Mar, [facility] [address] [id number] [address] [place] [address], [place] [address] Mar, [facility] [address] [id number] [address] [place] [address], [place] [address] Mar, [facility] [address] [id number] [address] [place] [address], [place] [address] Mar, [facility] [address] [id number] [address] [place] [address], [place] [address] Mar, [facility] [address] [id number] [address] [place] [address], [place] [address] 30 Feb, 2013 [facility] [address] [id number] [address] [place] [address], [place] [address] 30 Feb, 2013 [facility] [address] [id number] [address] [place] [address], [place] [address] 24 Feb, 2013 [facility] [address] [id number] [address] [place] [address], [place] [address] 24 Feb, 2013 [facility] [address] [id number] [address] [place] [address], [place] [address] 22 Feb, 2013 [facility] [address] [id number] [address] [place] [address], [place] [address] 22 Feb, 2013 [facility] [address] [id number] [address] [place] [address], [place] [address] 10 Feb, 2013 [facility] [address] [id number] [address] [place] [address], [place] [address] 10 Feb, 2013 [facility] [address] [id number] [address] [place] [address], [place] [address] 03 Feb, 2013 [facility] [address] [id number] [address] [place] [address], [place] [address] 03 Feb, 2013 [facility] [address] [id number] [address] [place] [address], [place] [address] Feb, [facility] [address] [id number] [address] [place] [address], [place] [address] Feb, 2013 [facility] [address] [id number] [address] [place] [address], [place] [address] Feb, [facility] [address] [id number] [address] [place] [address], [place] [address] Feb, [facility] [address] [id number] [address] [place] [address], [place] [address] Jan, [facility] [address] [id number] [address] [place] [address], [place] [address] Jan, [facility] [address] [id number] [address] [place] [address], [place] [address] Dec, [facility] [address] [id number] [address] [place] [address], [place] [address] Dec, [facility] [address] [id number] [address] [place] [address], [place] [address] Dec, [facility] [address] [id number] [address] [place] [address], [place] [address] Dec, [facility] [address] [id number] [address] [place] [id number] Dec, [facility] [address] [id number] [address] [place] [address], [place] [address] Dec, [facility] [address] [id number] [address] [place] [address], [place] [address] Dec, [facility] [address] [id number] [address] [place] [address], [place] [address] Dec, [facility] [address] [id number] [address] [place] [address], [place] [address] Dec, [facility] [address] [id number] [address] [place] [address], [place] [address] Dec, [facility] [address] [id number] [address] [place] [address], [place] [address] Dec, 2013 [facility] [address] [id number] [address] [place] [address], [place] [address] Dec, 2013 [facility] [address] [id number] [address] [place] [address], [place] [address] Dec, 2013 [facility] [address] [id number] [address] [place] [address], [place] [id number] Dec, 2013 [facility] [address] [id number] [address] [place] [address], [place] [address] Dec, 2013 [facility] [address] [id number] [address] [place] [address], [place] [address] Dec, 2013 [facility] [address] [id number] [address] [place] [address], [place] [address] Dec, 2013 [facility] [address] [id number] [address] [place] [address], [place] [address] Dec, [facility] [address] [id number] [address] [place] [address], [place] [address] Dec, [facility] [address] [id number] [address] [place] [address], [place] [address] Nov, [facility] [address] [id number] [address] [place] [address], [place] [address] Nov, [facility] [address] [id number] [address] [place] [address], [place] [address] Nov, [facility] [address] [id number] [address] [place] [address], [place] [address] Nov, [facility] [address] [id number] [address] [place] [address], [place] [address] Nov, [facility] [address] [id number] [address] [place] [address], [place] [address] Nov, [facility] [address] [id number] [address] [place] [address], [place] [address] Nov, [facility] [address] [id number] [facility] [place] [address] Nov, [facility] [address] [id number] [address] [place] [address], [place] [address] Nov, [facility] [address] [id number] [address] [place] [address], [place] [address] October, [facility] [address] [id number] [address] [place], [place] [address], [place] [address] October, [facility] [address] [id number] [address] [place] [address], [place] [address] October, [facility] [address] [id number] [address] [place] [address], [place] [address] October, [facility] [address] [id number] [address] [place] [address], [place] [address] October, [facility] [address] [id number] [address] [place] [address], [place] [address] October, [facility] [address] [id number] [address] [place] [address], [place] [address] October, [facility] [address] [id number] [address] [place] [address], [place] [address] October, [facility] [address] [id number] [address] [place] [address], [place] [address] Sep, [facility] [address] [id number] [address] [place] [address], [place] [address] Sep, [facility] [address] [id number] [address] [place] [address], [place] [address] Sep, [facility] [address] [id number] [address] [place] [address], [place] [address] Sep, [facility] [address] [id number] [address] [place] [address], [place] [address] Sep, [facility] [address] [id number] [address] [place] [address], [place] [address] Sep, [facility] [address] [id number] [address] [place] [address], [place] [address] Sep, [facility] [address] [id number] [address] [place] [address], [place] [address] Aug, [facility] [address] [id number] [address] [place] [address], [place] [address] Aug, [facility] [address] [id number] [address] [place] [address], [place] [address] Aug, [facility] [address] [id number] [address] [place] [address], [place] [address] Aug, [facility] [address] [id number] [address] [place] [address], [place] [address] Aug, [facility] [address] [id number] [address] [place] [address], [place] [address] Aug, [facility] [address] [id number] [address] [place] [address], [place] [address] Jul, [facility] [address] [id number] [address] [place] [address], [place] [address] Jul, [facility] [address] [id number] [address] [place] [address], [place] [address] Jul, [facility] [address] [id number] [address] [place] [address], [place] [address] Jul, [facility] [address] [id number] [address] [place] [address], [place] [address] Jul, [facility] [address] [id number] [address] [place] [address], [place] [address] Jul, [facility] [address] [id number] [address] [place] [address], [place] [address] Jun, [facility] [address] [id number] [address] [place] [address], [place] [address] Jun, [facility] [address] [id number] [address] [place] [address], [place] [address] Jun, [facility] [address] [id number] [address] [place] [address], [place] [address] Jun, [facility] [address] [id number] [address] [place] [address], [place] [address] Jun, [facility] [address] [id number] [address] [place] [address], [place] [address] Jun, [facility] [address] [id number] [address] [place] [address], [place] [address] Jun, [facility] [address] [id number] [address] [place] [address], [place] [address] Jun, [facility] [address] [id number] [address] [place] [address], [place] [address] Jun, [facility] [address] [id number] [address] [place] [address], [place] [address] Jun, [facility] [address] [id number] [address] [place] [address], [place] [address] Jun, [facility] [address] [id number] [address] [place] [address], [place] [address] Jun, [facility] [address] [id number] [address] [place] [address], [place] [address] Jun, [facility] [address] [id number] [address] [place] [address], [place] [address] May, [facility] [address] [id number] [address] [place] [address], [place] [address] May, [facility] [address] [id number] [address] [place] [address], [place] [address] May, [facility] [address] [id number] [address] [place] [address], [place] [address] May, [facility] [address] [id number] [address] [place] [address], [place] [address] May, [facility] [address] [id number] [address] [place] [address], [place] [address] 14 May, 2013 [facility] [address] [id number] [address] [place] [address], [place] [address] 14 May, 2013 [facility] [address] [id number] [address] [place] [address], [place] [address] 12 May, 2013 [facility] [address] [id number] [address] [place] [address], [place] [address] May, [facility] [address] [id number] [address] [place] [address], [place] [address] May, [facility] [address] [id number] [address] [place] [address], [place] [address] May, [facility] [address] [id number] [address] [place] [address], [place] [address] May, [facility] [address] [id number] [address] [place] [address], [place] [address] 10 May, 2013 [facility] [address] [id number] [address] [place] [address], [place] [address] May, [facility] [address] [id number] [address] [place] [address], [place] [address] May, [facility] [address] [id number] [address] [place] [address], [place] [address] 08 May, 2013 [facility] [address] [id number] [address] [place] [address], [place] [address] 07 May, 2013 [facility] [address] [id number] [address] [place] [address], [place] [address] 06 May, 2013 [facility] [address] [id number] [address] [place] [address], [place] [address] 06 May, 2013 [facility] [address] [id number] [address] [place] [address], [place] [address] 06 May, 2013 [facility] [address] [id number] [address] [place] [id number] May, [facility] [address] [id number] [address] [place] [address], [place] [address] Apr, [facility] [address] [id number] [address] [place] [address], [place] [address] Apr, [facility] [address] [id number] [address] [place] [address], [place] [address] Apr, [facility] [address] [id number] [address] [place] [address], [place] [address] Apr, [facility] [address] [id number] [address] [place] [address], [place] [address] Mar, [facility] [address] [id number] [address] [place] [address], [place] [address] 23 Feb, 2013 [facility] [address] [id number] [address] [place] [address], [place] [address] 16 Feb, 2013 [facility] [address] [id number] [address] [place] [address], [place] [address] 13 Feb, 2013 [facility] [address] [id number] [address] [place] [address], [place] [address] 10 Feb, 2013 [facility] [address] [id number] [address] [place] [address], [place] [address] 09 Feb, 2013 [facility] [address] [id number] [address] [place] [address], [place] [address] Feb, [facility] [address] [id number] [address] [place] [address], [place] [address] Jan, [facility] [address] [id number] [address] [place] [address], [place] [address] Jan, [facility] [address] [id number] [address] [place] [address], [place] [address] Jan, [facility] [address] [id number] [address] [place] [address], [place] [address] Dec, [facility] [address] [id number] [facility] [place] [address] 17 Dec, 2012 [facility] [address] [id number] [facility] [place] [address] 17 Dec, 2012 [facility] [address] [id number] [address] [place] [address], [place] [address] 15 Dec, 2012 [facility] [address] [id number] [address] [place] [address], [place] [address] Dec, [facility] [address] [id number] [address] [place] [address], [place] [address] Nov, [facility] [address] [id number] [address] [place] [address], [place] [address] Nov, [facility] [address] [id number] [address] [place] [address], [place] [address] Nov, [facility] [address] [id number] [address] [place] [address], [place] [address] Nov, [facility] [address] [id number] [address] [place] [address], [place] [address] Nov, [facility] [address] [id number] [address] [place] [address], [place] [address] 08 Nov, 2012 [facility] [address] [id number] [address] [place] [address], [place] [address] 07 Nov, 2012 [facility] [address] [id number] [address] [place] [address], [place] [address] Nov, [facility] [address] [id number] [address] [place] [address], [place] [address] 05 Nov, 2012 [facility] [address] [id number] [address] [place] [address], [place] [address] Nov, [facility] [address] [id number] [address] [place] [address], [place] [address] October, [facility] [address] [id number] [address] [place] [address] [address] October, [facility] [address] [id number] [address] [place] [address], [place] [address] Sep, [facility] [address] [id number] [address] [place] [address], [place] [address] Sep, [facility] [address] [id number] [address] [place] [address], [place] [address] Sep, [facility] [address] [id number] [address] [place] [address], [place] [address] Sep, [facility] [address] [id number] [address] [place] [address], [place] [address] Sep, [facility] [address] [id number] [address] [place] [address], [place] [address] Aug, [facility] [address] [id number] [address] [place] [address], [place] [address] Aug, [facility] [address] [id number] [address] [place] [address], [place] [address] Jul, [facility] [address] [id number] [address] [place] [address], [place] [address] Jul, [facility] [address] [id number] [address] [place] [address], [place] [address] Jun, [facility] [address] [id number] [address] [place] [address], [place] [address] Jun, [facility] [address] [id number] [address] [place] [address], [place] [address] May, [facility] [address] [id number] [address] [place] [address], [place] [address] May, [facility] [address] [id number] [address] [place] [address], [place] [address] May, [facility] [address] [id number] [address] [place] [address], [place] [address] May, [facility] [address] [id number] [address] [place] [address], [place] [address] 27 Apr, 2012 [facility] [address] [id number] [address] [place] [address], [place] [address] 27 Apr, 2012 [facility] [address] [id number] [address] [place] [address], [place] [address] Apr, [facility] [address] [id number] [address] [place] [address], [place] [address] Apr, [facility] [address] [id number] [address] [place] [address], [place] [address] Apr, [facility] [address] [id number] [address] [place] [address], [place] [address] Apr, [facility] [address] [id number] [address] [place] [address], [place] [address] Apr, [facility] [address] [id number] [address] [place] [address], [place] [address] Apr, [facility] [address] [id number] [address] [place] [address], [place] [address] Apr, [facility] [address] [id number] [address] [place] [address], [place] [address] Mar, [facility] [address] [id number] [address] [place] [address], [place] [address] 15 Mar, 2012 [facility] [address] [id number] [address] [place] [address], [place] [address] 05 Feb, 2012 [facility] [address] [id number] [address] [place] [address], [place] [address] Jan, [facility] [address] [id number] [address] [place] [address], [place] [address] Jan, [facility] [address] [id number] [address] [place] [address], [place] [address] Dec, [facility] [address] [id number] [address] [place] [address], [place] [address] Nov, [facility] [address] [id number] [address] [place] [address], [place] [address] Nov, [facility] [address] [id number] [address] [place] [address], [place] [address] October, [facility] [address] [id number] [address] [place] [address], [place] [address] October, [facility] [address] [id number] [address] [place] [address], [place] [address] Sep, [facility] [address] [id number] [address] [place] [address], [place] [address] Sep, [facility] [address] [id number] [address] [place] [address], [place] [address] May, [facility] [address] [id number] [address] [place] [address], [place] [address] Apr, [facility] [address] [id number] [address] [place] [address], [place] [address] Apr, [facility] [address] [id number] [address] [place] [address], [place] [address] Apr, [facility] [address] [id number] [address] [place] [id number] Apr, [facility] [address] [id number] [address] [place] [id number] 15 Apr, 2011 [facility] [address] [id number] [address] [place] [id number] Apr, [facility] [address] [id number] [address] [place] [address], [place] [address] 10 Apr, 2011 [facility] [address] [id number] [address] [place] [id number] 07 Apr, 2011 [facility] [address] [id number] [address] [place] [id number] Mar, [facility] [address] [id number] [address] [place] [id number] Mar, [facility] [address] [facility] [id number] [address] [place] [id number] Mar, [facility] [address] [facility] [id number] [address] [place] [id number] Mar, [facility] [address] [facility] [id number] [address] [place] [id number] Mar, [facility] [address] [facility] [id number] [address] [place] [id number] Mar, IMMUNIZATIONS No Known Immunizations SOCIAL HISTORY [...] Stomach surgeryx3 Hospitalization History Mental floor at [facility]
--- OUTSIDE RECORDS SUMMARY | 2019-12-24 19:52 | XMS REPORT ---
Author Author Trey ANDRADE Organization [facility] Address [address] [place] [address] Care Team Providers Care Computer Technology Instructor Name Role Phone SURESH ANDRADE Unavailable PROBLEMS Type Condition ICD9-CM Code [id number] Code Onset Dates Condition S tatus SNOMED Code Problem Nondependent 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 Ac tive 035376065 Problem Other chronic pain G89.29 Active 1 63500569 Problem Unspecified epilepsy without mention of intractable ep ilepsy G40.909 Active 22399383 Problem Hyperlipidemia, unspecified E78.5 Ac tive 73273019 Problem Hypertension I10 Active 2606119 3 Problem Esophageal reflux K21.9 Active 23 9523477 Problem Rheumatoid arthritis M06.9 Active 04729497 Problem Cough R05 Active 70773873 Problem Acquired hypothyroidism E03.9 Active 476487287 Problem Unspecified open-angle glaucoma, stage unspecified H40.10X0 Feb, Active 57518593 Problem Presbyopia H52.4 Active 62058832 Problem Insomnia G47.00 Active 661954668 Problem Arthralgia M25.50 Active 11020713 Problem Thyroid nodule E04.1 Active 79723 5005 Problem Anxiety disorder, unspecified F41.9 Active 295751898 Problem Chronic tension-type headache, intractable G44.221 Active 525449776 Problem Neuropathy G62.9 Active 706012029 Problem Goiter E04.9 Active 5278554 Problem Multinodular goiter E04.2 Active 515267874 Problem Carpal tunnel syndrome of left wrist G56.02 Active 819983977529065 Problem Chronic obstructive pulmonary disease, unspecified COPD ty pe J44.9 Active 54545347 Problem BMI 40.0-44.9, adult Z68.41 Active 946118654 Problem Seasonal allergic rhinitis due to pollen J30.1 Active 91201136 Problem Depression F32.9 Active 19242383 Problem Essential hypertension I10 Active 54110070 Problem Depressive disorder F32.9 Active 49992803 Problem Right-sided low back pain without sciatica M54.5 Active 945368957 Problem Reactive airway disease with out complication, unspecified asthma severity, unspecified whether persistent J45.909 Active 592322993744 Problem Urge incontinence of urine N39.41 Act chen 79574956 Problem Abnormal laboratory test R89.9 Activ e 601751278 Problem COPD with exacerbation J44.1 Active 405149540 ALLERGIES No Information ENCOUNTERS Encounter Location Date Diagnosis [place] [address] [address] Feb, [place] [address] [address] Feb, Mass of right side of neck R 22.1 and Multinodular goiter E04.2 [place] [address] [address] Jan, Bronchitis J40 [place] [address] [address] October, Acquired hypothyroidism E03. 9 [place] [address] [address] October, Acute gastritis without hemo rrhage, unspecified gastritis type K29.00 ; Epigastric pain R10.13 ; Essential hypertension I10 ; Screening for colon cancer Z12.11 and BMI 40.0-44.9, adult Z68.41 [place] [address] [address] October, [facility] [place] [facility] [address] [address] October, Chest pain R07.9 and Morbid obesity E66.01 [facility] [place] [place] [address] [address] Sep, Generalized abdominal pain R 10.84 ; Morbid obesity E66.01 ; Non-intractable vomiting with nausea, unspecified vomiting type R11.2 and Seasonal allergic rhinitis due to pollen J30.1 [facility] [address] [facility] [id number] [address] [place] [address] Jul, COPD with exacerbation J44.1 ; Viral upper respiratory tract infection J06.9 and Morbid obesity E66.01 [facility] [address] [facility] [id number] [address] [place] [address] Jun, Viral upper respiratory trac t infection J06.9 [facility] [address] [facility] [id number] [address] [place] [address] Apr, Abnormal laboratory test R89 .9 [place] [address] [facility] [id number] [address] [place] [address] Apr, Abnormal laboratory test R89 .9 [place] [address] [address] [place] [id number] [address] [place] [address] Apr, Abnormal laboratory test R89 .9 [place] [address] [place] [address] Apr, [place] [address] [place] [id number] [address] [place] [address] Apr, [place] [address] [address] Apr, Nonintractable episodic head ache, unspecified headache type R51 ; Urge incontinence of urine N39.41 ; BMI 40.0-44.9, adult Z68.41 ; Myalgia M79.10 and Acute cystitis without hematuria N30.00 [place] [address] [place] [id number] [address] [place] [address] Mar, Nasal congestion R09.81 ; Lo w back pain M54.5 ; Reactive airway disease without complication, unspecified asthma severity, unspecified whether persistent J45.909 ; Other chronic pain G89.29 ; Acute cystitis with hematuria N30.01 and BMI 40.0-44.9, adult Z68.41 [place] [address] [address] [place] [id number] [address] [place] [address] Mar, Acute cystitis with hematuri a N30.01 [facility] [address] [address] Mar, BMI 40.0-44.9, adult Z68.41 ; Acute cystitis with hematuria N30.01 ; Acute bilateral low back pain without sciatica M54.5 and Nausea R11.0 [place] [address] [address] Mar, Hypertension I10 ; Acquired hypothyroidism E03.9 ; Esophageal reflux K21.9 ; Chronic obstructive pulmonary disease, unspecified COPD type J44.9 and BMI 40.0-44.9, adult Z68.41 [place] [address] [address] 15 Mar, 2018 Hypertension I10 [place] [address] [address] Nov, Hyperlipidemia, unspecified E78.5 [place] [address] [address] October, Chest pain, unspecified type R07.9 and Acquired hypothyroidism E03.9 [place] [address] [address] October, Chest pain, unspecified type R07.9 ; Family history of coronary artery disease Z82.49 ; Carpal tunnel syndrome of left wrist G56.02 ; Hypertension I10 ; Esophageal reflux K21.9 ; Arthralgia M25.50 ; Acquired hypothyroidism E03.9 ; Cough R05 ; Nausea R11.0 ; Weight gain R63.5 and BMI 45.0-49.9, adult Z68.42 [place] [address] [address] Jun, Acquired hypothyroidism E03. 9 and Cough R05 [place] [address] [address] May, [place] [address] [place] [address] Feb, Tarsal tunnel syndrome of timi th lower extremities G57.53 and Neuropathy G62.9 [place] [address] [place] [id number] [address] [place] [address] Dec, Pleuritis R09.1 [place] [address] [address] Nov, [place] [address] [address] October, Arthralgia, unspecified join t M25.50 and Allergy, initial encounter T78.40XA [place] [address] [address] October, [place] [address] [address] October, Acute recurrent maxillary si nusitis J01.01 and Arthralgia M25.50 [place] [address] [address] [place] [id number] [address] [place] [address] Sep, Pharyngitis due to other org anism J02.8 [place] [address] [place] [id number] [address] [place] [address] Aug, Acute nasopharyngitis J00 [place] [address] [address] Aug, Multinodular goiter E04.2 [place] [address] [address] [place] [id number] [address] [place] [address] Aug, Thyroid nodule E04.1 [place] [address] [place] [id number] [address] [place] [address] Jul, Tarsal tunnel syndrome of timi th lower extremities G57.53 [place] [address] [address] [place] [id number] [address] [place] [address] Jun, Pneumonia due to infectious organism, unspecified laterality, unspecified part of lung J18.9 [place] [address] [address] Jun, Bronchospasm with bronchitis , acute J20.9 [place] [address] [address] May, Acute non-recurrent frontal sinusitis J01.10 [place] [address] [address] May, Flat foot [pes planus] (acqu ired), left foot M21.42 ; Flat foot [pes planus] (acquired), right foot M21.41 and Neuropathy G62.9 [place] [address] [address] Apr, Chronic tension-type headach e, intractable G44.221 ; Right lower quadrant abdominal pain R10.31 ; Cervicalgia M54.2 ; Acute gastritis without hemorrhage, unspecified gastritis type K29.00 and Hypertension I10 [place] [address] [address] Mar, Depression F32.9 and Anxiety disorder, unspecified F41.9 [place] [address] [address] Feb, Depressive disorder F32.9 an d Anxiety disorder, unspecified F41.9 [place] [address] [address] Jan, Dysuria R30.0 ; Lower abdomi nal pain R10.30 ; Acute bilateral low back pain without sciatica M54.5 ; Nausea and vomiting, unspecified intactability, vomiting of unspecified type R11.2 ; Pain in right foot M79.671 and Pain of left foot M79.672 [place] [address] [address] Dec, Urinary tract infection, sit e not specified N39.0 [place] [address] [id number] [address] [place] [address] Dec, [facility] [address] [facility] [id number] [address] [place] [address] Nov, [facility] [address] [facility] [id number] [address] [place] [address] Nov, Dysuria R30.0 [facility] [address] [facility] [id number] [address] [place] [address] Nov, Dysuria R30.0 and Acute cyst itis with hematuria N30.01 [facility] [address] [facility] [id number] [address] [place] [address] October, Nausea R11.0 [facility] [address] [facility] [id number] [address] [place] [address] October, Thyroid nodule E04.1 ; Carpa l tunnel syndrome, left upper limb G56.02 ; Carpal tunnel syndrome, right upper limb G56.01 and Constipation, unspecified constipation type K59.00 [facility] [address] [facility] [id number] [address] [place] [address] October, [facility] [address] [facility] [id number] [address] [place] [address] October, Thyroid nodule E04.1 [facility] [address] [facility] [id number] [address] [place] [address] October, Cold thyroid nodule E04.1 [facility] [address] [facility] [id number] [address] [place] [address] October, [facility] [address] [facility] [id number] [address] [place] [address] Sep, Thyroid nodule E04.1 [facility] [address] [facility] [id number] [address] [place] [address] Sep, Thyroid nodule E04.1 [facility] [address] [facility] [id number] [address] [place] [address] Sep, Thyroid nodule E04.1 ; Hyper tension I10 ; Esophageal reflux K21.9 and Hyperlipidemia, unspecified E78.5 [place] [address] [address] Aug, Other chronic pain G89.29 ; Sinusitis J32.9 and Hypertension I10 [place] [address] [address] 29 Jul, 2015 [place] [address] [address] 15 Jul, 2015 [place] [address] [address] 10 Jul, 2015 Insomnia G47.00 and Arthralg ia M25.50 [place] [address] [address] 10 Jul, 2015 Depressive disorder F32.9 an d Anxiety disorder, unspecified F41.9 [place] [address] [address] May, Right-sided low back pain wi thout sciatica M54.5 and Depression F32.9 [place] [address] [address] [place] [id number] [address] [place] [address] Apr, Hematuria R31.9 [place] [address] [address] Mar, Other chronic pain G89.29 [place] [address] [address] Mar, Other chronic pain G89.29 [place] [address] [address] Feb, [place] [address] [address] Feb, Other chronic pain 338.29 ; Dysuria 788.1 ; UTI (urinary tract infection) 599.0 ; Insomnia 780.52 ; Hot flashes 627.2 and Hypertension 401.9 [facility] [address] [facility] [id number] [address] [place] [address] Feb, Dysuria 788.1 [facility] [address] [facility] [id number] [address] [place] [address] Feb, [facility] [address] [facility] [id number] [address] [place] [address] Jan, [facility] [address] [facility] [id number] [address] [place] [address] Jan, [facility] [address] [facility] [id number] [place] [address] Jan, Fibromyalgia 729.1 ; Hyperte nsion 401.9 ; Dysthymia 300.4 and Hot flashes 627.2 [facility] [address] [facility] [id number] [address] [place] [address] Dec, [facility] [address] [facility] [id number] [address] [place] [address] Dec, [facility] [address] [facility] [id number] [address] [place] [address] Dec, [facility] [address] [facility] [id number] [address] [place] [address] Nov, Other chronic pain 338.29 [facility] [address] [facility] [id number] [address] [place] [address] October, [facility] [address] [facility] [id number] [address] [place] [address] October, [facility] [address] [facility] [id number] [address] [place] [address] Sep, [facility] [address] [facility] [id number] [address] [place] [address] Sep, [facility] [address] [facility] [id number] [address] [place] [address] Aug, [facility] [address] [id number] [address] [place] [address], [place] [address] Aug, [facility] [address] [id number] [address] [place] [address], [place] [address] Aug, [facility] [address] [id number] [address] [place] [address], [place] [address] Aug, [facility] [address] [id number] [address] [place] [address], [place] [address] Aug, [facility] [address] [id number] [address] [place] [address], [place] [address] Aug, [facility] [address] [id number] [address] [place] [address], [place] [address] Aug, [facility] [address] [id number] [address] [place] [address], [place] [address] Aug, [facility] [address] [id number] [address] [place] [address], [place] [address] Aug, [facility] [address] [id number] [address] [place] [address], [place] [address] Aug, [facility] [address] [id number] [address] [place] [address], [place] [address] Aug, [facility] [address] [id number] [address] [place] [address], [place] [address] Aug, [facility] [address] [id number] [address] [place] [address], [place] [address] Aug, [facility] [address] [id number] [address] [place] [address], [place] [address] Aug, [facility] [address] [id number] [address] [place] [address], [place] [address] Jul, [facility] [address] [id number] [address] [place] [address], [place] [address] Jul, [facility] [address] [id number] [address] [place] [address], [place] [address] Jul, [facility] [address] [id number] [address] [place] [address], [place] [address] Jul, [facility] [address] [id number] [address] [place] [address], [place] [address] Jul, [facility] [address] [id number] [address] [place] [address], [place] [address] Jul, [facility] [address] [id number] [address] [place] [address], [place] [address] Jun, [facility] [address] [id number] [address] [place] [address], [place] [address] Jun, [facility] [address] [id number] [address] [place] [address], [place] [address] Jun, [facility] [address] [id number] [address] [place] [address], [place] [address] Jun, [facility] [address] [id number] [address] [place] [address], [place] [address] May, [facility] [address] [id number] [address] [place] [address], [place] [address] May, [facility] [address] [id number] [address] [place] [address], [place] [address] May, [facility] [address] [id number] [address] [place] [address], [place] [address] May, [facility] [address] [id number] [address] [place] [address], [place] [address] May, [facility] [address] [id number] [address] [place] [address], [place] [address] May, [facility] [address] [id number] [address] [place] [address], [place] [address] May, [facility] [address] [id number] [address] [place] [address], [place] [address] May, [facility] [address] [id number] [address] [place] [address], [place] [address] May, [facility] [address] [id number] [address] [place] [address], [place] [address] May, [facility] [address] [id number] [address] [place] [address], [place] [address] Apr, [facility] [address] [id number] [address] [place] [address] Apr, [facility] [address] [id number] [address] [place] [address], [place] [address] Apr, [facility] [address] [id number] [address] [place] [address], [place] [address] Apr, [facility] [address] [id number] [address] [place] [address], [place] [address] Apr, [facility] [address] [id number] [address] [place] [address], [place] [address] Apr, [facility] [address] [id number] [address] [place] [address], [place] [address] Apr, [facility] [address] [id number] [address] [place] [address], [place] [address] Apr, [facility] [address] [id number] [address] [place] [address] Apr, [facility] [address] [id number] [address] [place] [address] Mar, [facility] [address] [id number] [address] [place] [address], [place] [address] Mar, [facility] [address] [id number] [address] [place] [address], [place] [address] Mar, [facility] [address] [id number] [address] [place] [address], [place] [address] Mar, [facility] [address] [id number] [address] [place] [address], [place] [address] 08 Mar, 2013 [facility] [address] [id number] [address] [place] [address], [place] [address] Mar, [facility] [address] [id number] [address] [place] [address], [place] [address] Mar, [facility] [address] [id number] [address] [place] [address], [place] [address] 08 Mar, 2014 [facility] [address] [id number] [address] [place] [address], [place] [address] 30 Feb, 2013 [facility] [address] [id number] [address] [place] [address], [place] [address] 30 Feb, 2013 [facility] [address] [id number] [address] [place] [address], [place] [address] 24 Feb, 2013 [facility] [address] [id number] [address] [place] [address], [place] [address] 24 Feb, 2013 [facility] [address] [id number] [address] [place] [address], [place] [address] 22 Feb, 2013 [facility] [address] [id number] [address] [place] [address], [place] [address] 22 Feb, 2013 [facility] [address] [id number] [address] [place] [address], [place] [address] 10 Feb, 2013 [facility] [address] [id number] [address] [place] [address], [place] [address] 10 Feb, 2013 [facility] [address] [id number] [address] [place] [address], [place] [address] 03 Sep, 2013 [facility] [address] [id number] [address] [place] [address], [place] [address] 03 Sep, 2013 [facility] [address] [id number] [address] [place] [address], [place] [address] 03 Feb, 2013 [facility] [address] [id number] [address] [place] [address], [place] [address] Feb, [facility] [address] [id number] [address] [place] [address], [place] [address] Feb, [facility] [address] [id number] [address] [place] [address], [place] [address] Feb, [facility] [address] [id number] [address] [place] [address], [place] [address] Jan, [facility] [address] [id number] [address] [place] [address], [place] [address] Jan, [facility] [address] [id number] [address] [place] [address], [place] [address] Dec, [facility] [address] [id number] [address] [place] [address], [place] [address] Dec, [facility] [address] [id number] [address] [place] [address], [place] [address] Dec, [facility] [address] [id number] [address] [place] [address], [place] [address] Dec, [facility] [address] [id number] [address] [place] [address], [place] [id number] Dec, [facility] [address] [id number] [address] [place] [address], [place] [address] Dec, [facility] [address] [id number] [address] [place] [address], [place] [address] Dec, [facility] [address] [id number] [address] [place] [address], [place] [address] Dec, [facility] [address] [id number] [address] [place] [address], [place] [address] Dec, [facility] [address] [id number] [address] [place] [address], [place] [address] Dec, [facility] [address] [id number] [address] [place] [address], [place] [address] Dec, [facility] [address] [id number] [address] [place] [address], [place] [address] Dec, 2013 [facility] [address] [id number] [address] [place] [address], [place] [address] Dec, 2013 [facility] [address] [id number] [address] [place] [address], [place] [address] Dec, 2013 [facility] [address] [id number] [address] [place] [address], [place] [address] Dec, 2013 [facility] [address] [id number] [address] [place] [address], [place] [address] Dec, 2013 [facility] [address] [id number] [address] [place] [address], [place] [address] Dec, 2013 [facility] [address] [id number] [address] [place] [address], [place] [address] Dec, [facility] [address] [id number] [address] [place] [address], [place] [address] Dec, [facility] [address] [id number] [address] [place] [address], [place] [address] Nov, [facility] [address] [id number] [address] [place] [address], [place] [address] Nov, [facility] [address] [id number] [address] [place] [address], [place] [address] Nov, [facility] [address] [id number] [address] [place] [address], [place] [address] Nov, [facility] [address] [id number] [address] [place] [address], [place] [address] Nov, [facility] [address] [id number] [address] [place] [address], [place] [address] Nov, [facility] [address] [id number] [address] [place] [address], [place] [address] Nov, [facility] [address] [id number] [address] [place] [address], [place] [address] Nov, [facility] [address] [id number] [address] [place] [address], [place] [address] Nov, [facility] [address] [id number] [address] [place] [address], [place] [address] October, [facility] [address] [id number] [address] [place] [address], [place] [address] October, [facility] [address] [id number] [address] [place] [address], [place] [address] October, [facility] [address] [id number] [address] [place] [address], [place] [address] October, [facility] [address] [id number] [address] [place] [address], [place] [address] October, [facility] [address] [id number] [address] [place] [address], [place] [address] October, [facility] [address] [id number] [address] [place] [address], [place] [address] October, [facility] [address] [id number] [address] [place] [address], [place] [address] October, [facility] [address] [id number] [address] [place] [address], [place] [address] Sep, [facility] [address] [id number] [address] [place] [address], [place] [address] Sep, [facility] [address] [id number] [address] [place] [address], [place] [address] Sep, [facility] [address] [id number] [address] [place] [address], [place] [address] Sep, [facility] [address] [id number] [address] [place] [address], [place] [address] Sep, [facility] [address] [id number] [address] [place] [address], [place] [address] Sep, [facility] [address] [id number] [address] [place] [address], [place] [address] Sep, [facility] [address] [id number] [address] [place] [address], [place] [address] Aug, [facility] [address] [id number] [address] [place] [address], [place] [address] Aug, [facility] [address] [id number] [address] [place] [address], [place] [address] Aug, [facility] [address] [id number] [address] [place] [address], [place] [address] Aug, [facility] [address] [id number] [address] [place] [address], [place] [address] Aug, [facility] [address] [id number] [address] [place] [address], [place] [address] Aug, [facility] [address] [id number] [address] [place] [address], [place] [address] Jul, [facility] [address] [id number] [address] [place] [address], [place] [address] Jul, [facility] [address] [id number] [address] [place] [address], [place] [address] Jul, [facility] [address] [id number] [address] [place] [address], [place] [address] Jul, [facility] [address] [id number] [address] [place] [address], [place] [address] Jul, [facility] [address] [id number] [address] [place] [address], [place] [address] Jul, [facility] [address] [id number] [address] [place] [address], [place] [address] Jun, [facility] [address] [id number] [address] [place] [address], [place] [address] Jun, [facility] [address] [id number] [address] [place] [address], [place] [address] Jun, [facility] [address] [id number] [address] [place] [address], [place] [address] Jun, [facility] [address] [id number] [address] [place] [address], [place] [address] Jun, [facility] [address] [id number] [address] [place] [address], [place] [address] Jun, [facility] [address] [id number] [address] [place] [address], [place] [address] Jun, [facility] [address] [id number] [address] [place] [address], [place] [address] Jun, [facility] [address] [id number] [address] [place] [address], [place] [address] Jun, [facility] [address] [id number] [address] [place] [address], [place] [address] Jun, [facility] [address] [id number] [address] [place] [address], [place] [address] Jun, [facility] [address] [id number] [address] [place] [address], [place] [address] Jun, [facility] [address] [id number] [address] [place] [address], [place] [address] Jun, [facility] [address] [id number] [address] [place] [address], [place] [address] May, [facility] [address] [id number] [address] [place] [address], [place] [address] May, [facility] [address] [id number] [address] [place] [address], [place] [address] May, [facility] [address] [id number] [address] [place] [address], [place] [address] May, [facility] [address] [id number] [address] [place] [address], [place] [address] May, [facility] [address] [id number] [address] [place] [address], [place] [address] May, [facility] [address] [id number] [address] [place] [address], [place] [address] 14 May, 2013 [facility] [address] [id number] [address] [place] [address], [place] [address] 12 May, 2013 [facility] [address] [id number] [address] [place] [address], [place] [address] 12 May, 2013 [facility] [address] [id number] [address] [place] [address], [place] [address] May, [facility] [address] [id number] [address] [place] [address], [place] [address] 11 May, 2013 [facility] [address] [id number] [address] [place] [address], [place] [address] 10 May, 2013 [facility] [address] [id number] [address] [place] [address], [place] [address] May, [facility] [address] [id number] [address] [place] [address], [place] [address] May, [facility] [address] [id number] [address] [place] [address], [place] [address] May, [facility] [address] [id number] [address] [place] [address], [place] [address] 08 May, 2013 [facility] [address] [id number] [address] [place] [address], [place] [address] 07 May, 2013 [facility] [address] [id number] [address] [place] [address] 06 May, 2013 [facility] [address] [id number] [address] [place] [address], [place] [address] May, [facility] [address] [id number] [address] [place] [address], [place] [address] May, [facility] [address] [id number] [address] [place] [address], [place] [address] May, [facility] [address] [id number] [address] [place] [address] Apr, [facility] [address] [id number] [address] [place] [address], [place] [address] Apr, [facility] [address] [id number] [address] [place] [address], [place] [address] Apr, [facility] [address] [id number] [address] [place] [address], [place] [address] Apr, [facility] [address] [id number] [address] [place] [address], [place] [address] Mar, [facility] [address] [id number] [address] [place] [address], [place] [address] 23 Feb, 2013 [facility] [address] [id number] [address] [place] [address], [place] [address] 16 Feb, 2013 [facility] [address] [id number] [address] [place] [address], [place] [address] 13 Feb, 2013 [facility] [address] [id number] [address] [place] [address], [place] [address] 10 Feb, 2013 [facility] [address] [id number] [address] [place] [address], [place] [address] 09 Feb, 2013 [facility] [address] [id number] [address] [place] [address], [place] [address] 09 Feb, 2013 [facility] [address] [id number] [address] [place] [address], [place] [address] Jan, [facility] [address] [id number] [address] [place] [address], [place] [address] Jan, [facility] [address] [id number] [address] [place] [address], [place] [address] Jan, [facility] [address] [id number] [address] [place] [address], [place] [address] Dec, [facility] [address] [id number] [address] [place] [address], [place] [address] Dec, [facility] [address] [id number] [facility] [place] [address] 17 Dec, 2012 [facility] [address] [id number] [address] [place] [address], [place] [address] 15 Dec, 2012 [facility] [address] [id number] [address] [place] [address], [place] [address] Dec, [facility] [address] [id number] [address] [place] [address], [place] [address] Nov, [facility] [address] [id number] [address] [place] [address], [place] [address] Nov, [facility] [address] [id number] [address] [place] [address], [place] [address] Nov, [facility] [address] [id number] [address] [place] [address], [place] [address] Nov, [facility] [address] [id number] [address] [place] [address], [place] [address] Nov, [facility] [address] [id number] [address] [place] [address], [place] [address] 08 Nov, 2012 [facility] [address] [id number] [address] [place] [address], [place] [address] Nov, [facility] [address] [id number] [address] [place] [address], [place] [address] 06 Nov, 2012 [facility] [address] [id number] [address] [place] [address], [place] [address] Nov, [facility] [address] [id number] [address] [place] [address], [place] [address] Nov, [facility] [address] [id number] [address] [place] [address], [place] [address] October, [facility] [address] [id number] [address] [place] [address], [place] [address] October, [facility] [address] [id number] [address] [place] [address] [address] Sep, [facility] [address] [id number] [address] [place] [address], [place] [address] Sep, [facility] [address] [id number] [address] [place] [address], [place] [address] Sep, [facility] [address] [id number] [address] [place] [address], [place] [address] Sep, [facility] [address] [id number] [address] [place] [address], [place] [address] Sep, [facility] [address] [id number] [address] [place] [address], [place] [address] Aug, [facility] [address] [id number] [address] [place] [address], [place] [address] Aug, [facility] [address] [id number] [address] [place] [address], [place] [address] Jul, [facility] [address] [id number] [address] [place] [address], [place] [address] Jul, [facility] [address] [id number] [address] [place] [address], [place] [address] Jun, [facility] [address] [id number] [address] [place] [address], [place] [address] Jun, [facility] [address] [id number] [address] [place] [address], [place] [address] May, [facility] [address] [id number] [address] [place] [address], [place] [address] May, [facility] [address] [id number] [address] [place] [address], [place] [address] May, [facility] [address] [id number] [address] [place] [address], [place] [address] May, [facility] [address] [id number] [address] [place] [address], [place] [address] Apr, [facility] [address] [id number] [address] [place] [address], [place] [address] 27 Apr, 2012 [facility] [address] [id number] [address] [place] [address], [place] [address] 23 Apr, 2012 [facility] [address] [id number] [address] [place] [address], [place] [address] Apr, [facility] [address] [id number] [address] [place] [address], [place] [address] Apr, [facility] [address] [id number] [address] [place] [address], [place] [address] Apr, [facility] [address] [id number] [address] [place] [address], [place] [address] 14 Apr, 2012 [facility] [address] [id number] [address] [place] [address], [place] [address] Apr, [facility] [address] [id number] [address] [place] [address], [place] [address] Apr, [facility] [address] [id number] [address] [place] [address], [place] [address] Mar, [facility] [address] [id number] [address] [place] [address], [place] [address] Mar, [facility] [address] [id number] [address] [place] [address], [place] [address] Feb, [facility] [address] [id number] [address] [place] [address], [place] [address] Jan, [facility] [address] [id number] [address] [place] [address], [place] [address] Jan, [facility] [address] [id number] [address] [place] [address], [place] [address] Dec, [facility] [address] [id number] [address] [place] [address], [place] [address] Nov, [facility] [address] [id number] [address] [place] [address], [place] [address] Nov, [facility] [address] [id number] [address] [place] [address], [place] [address] October, [facility] [address] [id number] [address] [place] [address], [place] [address] October, [facility] [address] [id number] [address] [place] [address], [place] [address] Sep, [facility] [address] [id number] [address] [place] [address], [place] [address] Sep, [facility] [address] [id number] [address] [place] [address], [place] [address] May, [facility] [address] [id number] [address] [place] [address], [place] [address] Apr, [facility] [address] [id number] [address] [place] [address], [place] [address] Apr, [facility] [address] [id number] [address] [place] [address], [place] [address] Apr, [facility] [address] [id number] [address] [place] [address], [place] [address] Apr, [facility] [address] [id number] [address] [place] [address] Apr, [facility] [address] [id number] [address] [place] [address] Apr, [facility] [address] [id number] [address] [place] [address] Apr, [facility] [address] [id number] [address] [place] [address], [place] [address] Apr, [facility] [address] [id number] [address] [place] [address], [place] [address] Mar, [facility] [address] [id number] [address] [place] [address] Mar, [facility] [address] [id number] [address] [place] [address] Mar, [facility] [address] [facility] [id number] [address] [place] [address] Mar, [facility] [address] [facility] [id number] [address] [place] [address] Mar, [facility] [address] [facility] [id number] [address] [place] [address] Mar, IMMUNIZATIONS No Known Immunizations SOCIAL HISTORY [...] Stomach surgeryx3 Hospitalization History Mental floor at [facility]
--- OUTSIDE RECORDS SUMMARY | 2019-12-24 19:52 | XMS REPORT ---
Author Author Trey POLK Organization [facility] Address [address] [place] [address] Care Team Providers Care Bonding Machine Operator Name Role Phone IHSAN POLKELA Unavailable PROBLEMS Type Condition ICD9-CM Code NNP39-NV Code Onset Dates Condition S tatus SNOMED Code Problem Nondependent 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 Ac tive 378447285 Problem Other chronic pain G89.29 Active 1 46751904 Problem Unspecified epilepsy without mention of intractable ep ilepsy G40.909 Active 73606054 Problem Hyperlipidemia, unspecified E78.5 Ac tive 09472370 Problem Hypertension I10 Active 9288935 3 Problem Esophageal reflux K21.9 Active 23 8577288 Problem Rheumatoid arthritis M06.9 Active 51624438 Problem Cough R05 Active 61304538 Problem Acquired hypothyroidism E03.9 Active 047233661 Problem Unspecified open-angle glaucoma, stage unspecified H40.10X0 Feb, Active 83322183 Problem Presbyopia H52.4 Active 48294702 Problem Insomnia G47.00 Active 482579357 Problem Arthralgia M25.50 Active 62965439 Problem Thyroid nodule E04.1 Active 12505 5005 Problem Anxiety disorder, unspecified F41.9 Active 196044226 Problem Chronic tension-type headache, intractable G44.221 Active 723254416 Problem Neuropathy G62.9 Active 900780190 Problem Goiter E04.9 Active 0786028 Problem Multinodular goiter E04.2 Active 884447985 Problem Carpal tunnel syndrome of left wrist G56.02 Active 475345430147139 Problem Chronic obstructive pulmonary disease, unspecified COPD ty pe J44.9 Active 41314184 Problem BMI 40.0-44.9, adult Z68.41 Active 358609598 Problem Seasonal allergic rhinitis due to pollen J30.1 Active 83125377 Problem Depression F32.9 Active 09729644 Problem Essential hypertension I10 Active 20378685 Problem Depressive disorder F32.9 Active 87615876 Problem Right-sided low back pain without sciatica M54.5 Active 098535160 Problem Reactive airway disease with out complication, unspecified asthma severity, unspecified whether persistent J45.909 Active 382124368699 Problem Urge incontinence of urine N39.41 Act chen 43911711 Problem Abnormal laboratory test R89.9 Activ e 590358360 Problem COPD with exacerbation J44.1 Active 487849893 ALLERGIES No Information ENCOUNTERS Encounter Location Date Diagnosis [place] [address] [address] Feb, [place] [address] [address] Feb, [place] [address] [address] Feb, Mass of right side of neck R 22.1 and Multinodular goiter E04.2 [facility] [place] [address] [address] Jan, Bronchitis J40 [place] [address] [address] October, Acquired hypothyroidism E03. 9 [place] [address] [address] October, Acute gastritis without hemo rrhage, unspecified gastritis type K29.00 ; Epigastric pain R10.13 ; Essential hypertension I10 ; Screening for colon cancer Z12.11 and BMI 40.0-44.9, adult Z68.41 [place] [address] [address] October, [facility] [place] [address] [address] October, Chest pain R07.9 and Morbid obesity E66.01 [facility] [place] [address] [address] Sep, Generalized abdominal pain R 10.84 ; Morbid obesity E66.01 ; Non-intractable vomiting with nausea, unspecified vomiting type R11.2 and Seasonal allergic rhinitis due to pollen J30.1 [facility] [address] [address] 28 Jul, 2018 COPD with exacerbation J44.1 ; Viral upper respiratory tract infection J06.9 and Morbid obesity E66.01 [facility] [address] [place] [id number] [place] [address] Jun, Viral upper respiratory trac t infection J06.9 [facility] [address] [place] [id number] [place] [address] Apr, Abnormal laboratory test R89 .9 [place] [address] [place] [id number] [place] [address] Apr, Abnormal laboratory test R89 .9 [place] [address] [place] [id number] [address] [place] [address] Apr, Abnormal laboratory test R89 .9 [place] [address] [place] [id number] [place] [address] Apr, [place] [address] [place] [id number] [place] [address] Apr, [place] [address] [place] [id number] [address] [place] [address] Apr, Nonintractable episodic head ache, unspecified headache type R51 ; Urge incontinence of urine N39.41 ; BMI 40.0-44.9, adult Z68.41 ; Myalgia M79.10 and Acute cystitis without hematuria N30.00 [place] [id number] [place] [address] Mar, Nasal congestion R09.81 ; Lo w back pain M54.5 ; Reactive airway disease without complication, unspecified asthma severity, unspecified whether persistent J45.909 ; Other chronic pain G89.29 ; Acute cystitis with hematuria N30.01 and BMI 40.0-44.9, adult Z68.41 [facility] [address] [address] Mar, Acute cystitis with hematuri a N30.01 [facility] [address] [address] Mar, BMI 40.0-44.9, adult Z68.41 ; Acute cystitis with hematuria N30.01 ; Acute bilateral low back pain without sciatica M54.5 and Nausea R11.0 [place] [address] [address] 17 Mar, 2018 Hypertension I10 ; Acquired hypothyroidism E03.9 ; Esophageal reflux K21.9 ; Chronic obstructive pulmonary disease, unspecified COPD type J44.9 and BMI 40.0-44.9, adult Z68.[address] [address] Mar, Hypertension I10 [place] [address] [address] Nov, Hyperlipidemia, unspecified E78.[address] [address] October, Chest pain, unspecified type R07.9 and Acquired hypothyroidism E03.[address] [address] October, Chest pain, unspecified type R07.9 ; Family history of coronary artery disease Z82.49 ; Carpal tunnel syndrome of left wrist G56.02 ; Hypertension I10 ; Esophageal reflux K21.9 ; Arthralgia M25.50 ; Acquired hypothyroidism E03.9 ; Cough R05 ; Nausea R11.0 ; Weight gain R63.5 and BMI 45.0-49.9, adult Z68.[address] [address] Jun, Acquired hypothyroidism E03. 9 and Cough R05 [address] [place] [address] May, [place] [address] [address] Feb, Tarsal tunnel syndrome of timi th lower extremities G57.53 and Neuropathy G62.9 [place] [address] [address] Dec, Pleuritis R09.1 [place] [address] [address] Nov, [place] [address] [address] October, Arthralgia, unspecified join t M25.50 and Allergy, initial encounter T78.40XA [place] [address] [address] October, [place] [address] [address] October, Acute recurrent maxillary si nusitis J01.01 and Arthralgia M25.50 [place] [address] [address] Sep, Pharyngitis due to other org anism J02.8 [place] [address] [address] Aug, Acute nasopharyngitis J00 [place] [address] [address] Aug, Multinodular goiter E04.2 [place] [address] [address] Aug, Thyroid nodule E04.1 [place] [address] [place] [id number] [address] [place] [address] 17 Jul, 2016 Tarsal tunnel syndrome of timi th lower extremities G57.53 [place] [address] [address] Jun, Pneumonia due to infectious organism, unspecified laterality, unspecified part of lung J18.9 [place] [address] [address] Jun, Bronchospasm with bronchitis , acute J20.9 [place] [address] [address] May, Acute non-recurrent frontal sinusitis J01.10 [place] [address] [address] May, Flat foot [pes planus] (acqu ired), left foot M21.42 ; Flat foot [pes planus] (acquired), right foot M21.41 and Neuropathy G62.[address] [address] Apr, Chronic tension-type headach e, intractable G44.221 ; Right lower quadrant abdominal pain R10.31 ; Cervicalgia M54.2 ; Acute gastritis without hemorrhage, unspecified gastritis type K29.00 and Hypertension I10 [place] [address] [address] Mar, Depression F32.9 and Anxiety disorder, unspecified F41.9 [place] [address] [address] Feb, Depressive disorder F32.9 an d Anxiety disorder, unspecified F41.9 [place] [address] [address] Jan, Dysuria R30.0 ; Lower abdomi nal pain R10.30 ; Acute bilateral low back pain without sciatica M54.5 ; Nausea and vomiting, unspecified intactability, vomiting of unspecified type R11.2 ; Pain in right foot M79.671 and Pain of left foot M79.672 [place] [address] [address] Dec, Urinary tract infection, sit e not specified N39.0 [facility] [address] [facility] [id number] [address] [place] [address] Dec, [facility] [address] [facility] [id number] [address] [place] [address] Nov, [facility] [address] [place] [id number] [place] [address] Nov, Dysuria R30.0 [facility] [address] [facility] [id number] [address] [place] [address] Nov, Dysuria R30.0 and Acute cyst itis with hematuria N30.01 [facility] [address] [facility] [id number] [address] [place] [address] October, Nausea R11.0 [facility] [address] [place] [id number] [place] [address] October, Thyroid nodule E04.1 ; Carpa l tunnel syndrome, left upper limb G56.02 ; Carpal tunnel syndrome, right upper limb G56.01 and Constipation, unspecified constipation type K59.00 [facility] [address] [place] [id number] [address] [place] [address] October, [facility] [address] [place] [id number] [address] [place] [address] October, Thyroid nodule E04.1 [facility] [address] [place] [id number] [address] [place] [address] October, Cold thyroid nodule E04.1 [facility] [address] [facility] [id number] [address] [place] [address] October, [facility] [address] [place] [id number] [address] [place] [address] Sep, Thyroid nodule E04.1 [facility] [address] [place] [id number] [place] [address] Sep, Thyroid nodule E04.1 [facility] [address] [place] [id number] [address] [place] [address] 19 Sep, 2015 Thyroid nodule E04.1 ; Hyper tension I10 ; Esophageal reflux K21.9 and Hyperlipidemia, unspecified E78.5 [place] [address] [place] [id number] [place] [address] 14 Aug, 2015 Other chronic pain G89.29 ; Sinusitis J32.9 and Hypertension I10 [place] [address] [place] [address] 29 Jul, 2015 [place] [address] [address] 15 Jul, 2015 [place] [address] [place] [id number] [place] [address] 10 Jul, 2015 Insomnia G47.00 and Arthralg ia M25.50 [place] [address] [place] [id number] [address] [place] [address] 10 Jul, 2015 Depressive disorder F32.9 an d Anxiety disorder, unspecified F41.9 [place] [address] [address] May, Right-sided low back pain wi thout sciatica M54.5 and Depression F32.9 [place] [address] [address] Apr, Hematuria R31.9 [place] [address] [place] [id number] [place] [address] Mar, Other chronic pain G89.29 [place] [address] [address] Mar, Other chronic pain G89.29 [place] [address] [place] [id number] [address] [place] [address] 28 Feb, 2015 [place] [address] [address] Feb, Other chronic pain 338.29 ; Dysuria 788.1 ; UTI (urinary tract infection) 599.0 ; Insomnia 780.52 ; Hot flashes 627.2 and Hypertension 401.9 [facility] [address] [facility] [id number] [address] [place] [address] Feb, Dysuria 788.1 [facility] [address] [facility] [id number] [address] [place] [address] Feb, [facility] [address] [facility] [id number] [address] [place] [address] Jan, [facility] [address] [facility] [id number] [address] [place] [address] Jan, [facility] [address] [facility] [id number] [address] [place] [address] Jan, Fibromyalgia 729.1 ; Hyperte nsion 401.9 ; Dysthymia 300.4 and Hot flashes 627.2 [facility] [address] [facility] [id number] [address] [place] [address] Dec, [facility] [address] [facility] [id number] [address] [place] [address] Dec, [facility] [address] [facility] [id number] [address] [place] [address] Dec, [facility] [address] [facility] [id number] [address] [place] [address] Nov, Other chronic pain 338.29 [facility] [address] [facility] [id number] [address] [place] [address] October, [facility] [address] [facility] [id number] [address] [place] [address] October, [facility] [address] [facility] [id number] [address] [place] [address] Sep, [facility] [address] [facility] [id number] [address] [place] [address] 13 Sep, 2014 [facility] [address] [id number] [facility] [address] Aug, [facility] [place] [facility] [address] [id number] [address] [place] [address], [place] [address] Aug, [facility] [place] [facility] [address] [id number] [address] [place] [address], [place] [address] Aug, [facility] [place] [facility] [address] [id number] [address] [place] [address], [place] [address] Aug, [facility] [place] [facility] [address] [id number] [address] [place] [address], [place] [address] Aug, [facility] [place] [facility] [address] [id number] [address] [place] [address], [place] [address] Aug, [facility] [place] [facility] [address] [id number] [address] [place] [address], [place] [address] Aug, [facility] [place] [facility] [address] [id number] [address] [place] [address], [place] [address] Aug, [facility] [place] [facility] [address] [id number] [address] [place] [address], [place] [address] Aug, [facility] [place] [facility] [address] [id number] [address] [place] [address], [place] [address] Aug, [facility] [place] [facility] [address] [id number] [address] [place] [address], [place] [address] Aug, [facility] [place] [facility] [address] [id number] [address] [place] [address], [place] [address] Aug, [facility] [place] [facility] [address] [id number] [address] [place] [address], [place] [address] Aug, [facility] [place] [facility] [address] [id number] [address] [place] [address], [place] [address] Aug, [facility] [place] [facility] [address] [id number] [address] [place] [address], [place] [address] Jul, [facility] [place] [facility] [address] [id number] [address] [place] [address], [place] [address] Jul, [facility] [address] [id number] [address] [place] [address], [place] [address] Jul, 2014 [facility] [address] [id number] [address] [place] [address], [place] [address] Jul, 2014 [facility] [address] [id number] [address] [place] [address], [place] [address] Jul, [facility] [address] [id number] [address] [place] [address], [place] [address] Jul, [facility] [address] [id number] [address] [place] [address], [place] [address] Jun, [facility] [address] [id number] [address] [place] [address], [place] [address] Jun, [facility] [address] [id number] [address] [place] [address], [place] [address] Jun, [facility] [address] [id number] [address] [place] [address], [place] [address] Jun, [facility] [address] [id number] [address] [place] [address], [place] [address] May, [facility] [address] [id number] [address] [place] [address], [place] [address] May, [facility] [address] [id number] [address] [place] [address], [place] [address] May, [facility] [address] [id number] [address] [place] [address], [place] [address] May, [facility] [address] [id number] [address] [place] [address], [place] [address] May, [facility] [address] [id number] [address] [place] [address], [place] [address] May, [facility] [address] [id number] [address] [place] [address], [place] [address] May, [facility] [place] [facility] [address] [id number] [address] [place] [address], [place] [address] May, [facility] [place] [facility] [address] [id number] [address] [place] [address], [place] [address] May, [facility] [place] [facility] [address] [id number] [address] [place] [address], [place] [address] May, [facility] [place] [facility] [address] [id number] [address] [place] [address], [place] [address] Apr, [facility] [place] [facility] [address] [id number] [address] [place] [address], [place] [address] Apr, [facility] [place] [facility] [address] [id number] [address] [place] [address], [place] [address] Apr, [facility] [place] [facility] [address] [id number] [address] [place] [address], [place] [address] Apr, [facility] [place] [facility] [address] [id number] [address] [place] [address], [place] [address] Apr, [facility] [place] [facility] [address] [id number] [address] [place] [address], [place] [address] Apr, [facility] [place] [facility] [address] [id number] [address] [place] [address], [place] [address] Apr, [facility] [place] [facility] [address] [id number] [address] [place] [address], [place] [address] Apr, [facility] [place] [facility] [address] [id number] [address] [place] [address], [place] [address] Apr, [facility] [place] [facility] [address] [id number] [address] [place] [address], [place] [address] Mar, [facility] [place] [facility] [address] [id number] [address] [place] [address], [place] [address] Mar, [facility] [place] [facility] [address] [id number] [address] [place] [address], [place] [address] Mar, [facility] [place] [facility] [address] [id number] [address] [place] [address] [place] [address] 28 Mar, 2013 [facility] [address] [id number] [address] [place] [address], [place] [address] 08 Mar, 2013 [facility] [place] [facility] [address] [id number] [address] [place] [address], [place] [address] 08 Mar, 2013 [facility] [place] [facility] [address] [id number] [address] [place] [address], [place] [address] 08 Mar, 2013 [facility] [place] [facility] [address] [id number] [address] [place] [address], [place] [address] 08 Mar, 2014 [facility] [address] [id number] [address] [place] [address], [place] [address] 30 Sep, 2013 [facility] [place] [facility] [address] [id number] [address] [place] [address], [place] [address] 30 Sep, 2013 [facility] [address] [id number] [address] [place] [address], [place] [address] 24 Sep, 2013 [facility] [place] [facility] [address] [id number] [address] [place] [address], [place] [address] 24 Sep, 2013 [facility] [address] [id number] [address] [place] [address], [place] [address] 22 Sep, 2013 [facility] [place] [facility] [address] [id number] [address] [place] [address], [place] [address] 22 Sep, 2013 [facility] [place] [facility] [address] [id number] [address] [place] [address], [place] [address] 10 Sep, 2013 [facility] [place] [facility] [address] [id number] [address] [place] [address], [place] [address] 10 Sep, 2013 [facility] [place] [facility] [address] [id number] [address] [place] [address], [place] [address] 03 Sep, 2013 [facility] [place] [facility] [address] [id number] [address] [place] [address], [place] [address] 03 Sep, 2013 [facility] [place] [facility] [address] [id number] [address] [place] [address], [place] [address] 03 Sep, 2013 [facility] [place] [facility] [address] [id number] [facility] [place] [id number] Feb, 2013 [facility] [address] [id number] [address] [place] [address], [place] [id number] Feb, [facility] [address] [id number] [address] [place] [address], [place] [id number] Feb, [facility] [address] [id number] [address] [place] [address], [place] [id number] Jan, [facility] [address] [id number] [address] [place] [address], [place] [id number] Jan, [facility] [address] [id number] [address] [place] [address], [place] [id number] Dec, [facility] [address] [id number] [address] [place] [address], [place] [id number] Dec, [facility] [address] [id number] [address] [place] [address], [place] [id number] Dec, [facility] [address] [id number] [address] [place] [address], [place] [id number] Dec, [facility] [address] [id number] [address] [place] [address], [place] [id number] Dec, [facility] [address] [id number] [address] [place] [address], [place] [id number] Dec, [facility] [address] [id number] [address] [place] [address], [place] [id number] Dec, [facility] [address] [id number] [address] [place] [address], [place] [id number] Dec, [facility] [address] [id number] [address] [place] [address], [place] [id number] Dec, [facility] [address] [id number] [address] [place] [address], [place] [id number] Dec, [facility] [address] [id number] [address] [place] [address], [place] [id number] Dec, 2013 [facility] [address] [id number] [facility] [place] [id number] Dec, 2013 [facility] [address] [id number] [address] [place] [address], [place] [id number] Dec, 2013 [facility] [address] [id number] [address] [place] [address], [place] [id number] Dec, 2013 [facility] [address] [id number] [address] [place] [address], [place] [id number] Dec, 2013 [facility] [address] [id number] [address] [place] [address], [place] [id number] Dec, 2013 [facility] [address] [id number] [address] [place] [address], [place] [id number] Dec, [facility] [address] [id number] [address] [place] [address], [place] [id number] Dec, [facility] [address] [id number] [address] [place] [address], [place] [id number] Dec, [facility] [address] [id number] [address] [place] [address], [place] [id number] Nov, [facility] [address] [id number] [address] [place] [address], [place] [id number] Nov, [facility] [address] [id number] [address] [place] [address], [place] [id number] Nov, [facility] [address] [id number] [address] [place] [address], [place] [id number] Nov, [facility] [address] [id number] [address] [place] [address], [place] [address] Nov, [facility] [address] [id number] [address] [place] [address], [place] [address] Nov, [facility] [address] [id number] [address] [place] [address], [place] [address] Nov, [facility] [address] [id number] [address] [place] [address], [place] [address] Nov, [facility] [address] [id number] [address] [place] [address], [place] [address] Nov, [facility] [address] [id number] [address] [place] [address], [place] [address] October, [facility] [address] [id number] [address] [place] [address], [place] [address] October, [facility] [address] [id number] [address] [place] [address], [place] [address] October, [facility] [address] [id number] [address] [place] [address], [place] [address] October, [facility] [address] [id number] [address] [place] [address], [place] [address] October, [facility] [address] [id number] [address] [place] [address], [place] [address] October, [facility] [address] [id number] [address] [place] [address], [place] [address] October, [facility] [address] [id number] [address] [place] [address], [place] [address] October, [facility] [address] [id number] [address] [place] [address], [place] [address] Sep, [facility] [address] [id number] [address] [place] [address], [place] [address] Sep, [facility] [address] [id number] [address] [place] [address], [place] [address] Sep, [facility] [address] [id number] [address] [place] [address], [place] [address] Sep, [facility] [address] [id number] [address] [place] [address], [place] [address] Sep, [facility] [address] [id number] [address] [place] [address], [place] [address] Sep, [facility] [address] [id number] [address] [place] [address], [place] [address] Sep, [facility] [address] [id number] [address] [place] [address], [place] [address] Aug, [facility] [address] [id number] [address] [place] [address], [place] [address] Aug, [facility] [address] [id number] [address] [place] [address], [place] [address] Aug, [facility] [address] [id number] [address] [place] [address], [place] [address] Aug, [facility] [address] [id number] [address] [place] [address], [place] [address] Aug, [facility] [address] [id number] [address] [place] [address], [place] [address] Aug, [facility] [address] [id number] [address] [place] [address], [place] [address] Jul, [facility] [address] [id number] [address] [place] [address], [place] [address] Jul, [facility] [address] [id number] [address] [place] [address], [place] [address] Jul, [facility] [address] [id number] [address] [place] [address], [place] [address] Jul, [facility] [address] [id number] [address] [place] [address], [place] [address] Jul, [facility] [address] [id number] [address] [place] [address], [place] [address] Jul, [facility] [address] [id number] [address] [place] [address], [place] [address] Jun, [facility] [address] [id number] [address] [place] [address], [place] [address] Jun, [facility] [address] [id number] [address] [place] [address], [place] [address] Jun, [facility] [address] [id number] [address] [place] [address], [place] [address] Jun, [facility] [address] [id number] [address] [place] [address], [place] [address] Jun, [facility] [address] [id number] [address] [place] [address], [place] [address] Jun, [facility] [address] [id number] [address] [place] [address], [place] [address] Jun, [facility] [address] [id number] [address] [place] [address], [place] [address] Jun, [facility] [address] [id number] [address] [place] [address], [place] [address] Jun, [facility] [address] [id number] [address] [place] [address], [place] [address] Jun, [facility] [address] [id number] [address] [place] [address], [place] [address] Jun, [facility] [address] [id number] [address] [place] [address], [place] [address] Jun, [facility] [address] [id number] [address] [place] [address], [place] [address] Jun, [facility] [address] [id number] [address] [place] [address], [place] [address] May, [facility] [address] [id number] [address] [place] [address], [place] [address] May, [facility] [address] [id number] [address] [place] [address], [place] [address] May, [facility] [address] [id number] [address] [place] [address], [place] [address] May, [facility] [address] [id number] [address] [place] [address], [place] [address] May, [facility] [address] [id number] [address] [place] [address], [place] [address] 14 May, 2013 [facility] [address] [id number] [address] [place] [address], [place] [address] 14 May, 2013 [facility] [address] [id number] [address] [place] [address], [place] [address] 12 May, 2013 [facility] [address] [id number] [address] [place] [address], [place] [address] 12 May, 2013 [facility] [address] [id number] [address] [place] [address], [place] [address] May, [facility] [address] [id number] [address] [place] [address], [place] [address] May, [facility] [address] [id number] [address] [place] [address], [place] [address] May, [facility] [address] [id number] [address] [place] [address], [place] [address] May, [facility] [address] [id number] [address] [place] [address], [place] [address] May, [facility] [address] [id number] [address] [place] [address], [place] [address] May, [facility] [address] [id number] [address] [place] [address], [place] [address] 08 May, 2013 [facility] [address] [id number] [address] [place] [address], [place] [address] 07 May, 2013 [facility] [address] [id number] [address] [place] [address], [place] [address] 06 May, 2013 [facility] [address] [id number] [address] [place] [address], [place] [address] May, [facility] [address] [id number] [address] [place] [address], [place] [address] 06 May, 2013 [facility] [address] [id number] [address] [place] [address], [place] [address] May, [facility] [address] [id number] [address] [place] [address], [place] [address] Apr, [facility] [address] [id number] [address] [place] [address], [place] [address] Apr, [facility] [address] [id number] [address] [place] [address], [place] [address] Apr, [facility] [address] [id number] [address] [place] [address], [place] [address] Apr, [facility] [address] [id number] [address] [place] [address], [place] [address] Mar, [facility] [address] [id number] [address] [place] [address], [place] [address] 23 Feb, 2013 [facility] [address] [id number] [address] [place] [address], [place] [address] 16 Feb, 2013 [facility] [address] [id number] [address] [place] [address], [place] [address] 13 Feb, 2013 [facility] [address] [id number] [address] [place] [address], [place] [address] 10 Feb, 2013 [facility] [address] [id number] [address] [place] [address], [place] [address] 09 Feb, 2013 [facility] [address] [id number] [address] [place] [address], [place] [address] Feb, [facility] [address] [id number] [address] [place] [address], [place] [address] Jan, [facility] [address] [id number] [address] [place] [address], [place] [address] Jan, [facility] [address] [id number] [address] [place] [address], [place] [address] Jan, [facility] [address] [id number] [address] [place] [address], [place] [address] Dec, [facility] [address] [id number] [facility] [address] 17 Dec, 2012 [facility] [address] [id number] [address] [place] [address], [place] [address] 17 Dec, 2012 [facility] [address] [id number] [address] [place] [address], [place] [address] 15 Dec, 2012 [facility] [address] [id number] [address] [place] [address], [place] [address] Dec, [facility] [address] [id number] [address] [place] [address], [place] [address] Nov, [facility] [address] [id number] [address] [place] [address], [place] [address] Nov, [facility] [address] [id number] [address] [place] [address], [place] [address] Nov, [facility] [address] [id number] [address] [place] [address], [place] [address] Nov, [facility] [address] [id number] [address] [place] [address], [place] [address] Nov, [facility] [address] [id number] [address] [place] [address], [place] [address] 08 Nov, 2012 [facility] [address] [id number] [address] [place] [address], [place] [address] 07 Nov, 2012 [facility] [address] [id number] [address] [place] [address], [place] [address] 06 Nov, 2012 [facility] [address] [id number] [address] [place] [address], [place] [address] 05 Nov, 2012 [facility] [address] [id number] [address] [place] [address], [place] [address] Nov, [facility] [address] [id number] [address] [place] [address], [place] [address] October, [facility] [address] [id number] [address] [place] [address], [place] [address] October, [facility] [address] [id number] [address] [place] [address], [place] [address] Sep, [facility] [address] [id number] [address] [place] [address], [place] [address] Sep, [facility] [address] [id number] [address] [place] [address], [place] [address] Sep, [facility] [address] [id number] [address] [place] [address], [place] [address] Sep, [facility] [address] [id number] [address] [place] [address], [place] [address] Sep, [facility] [address] [id number] [address] [place] [address], [place] [address] Aug, [facility] [address] [id number] [address] [place] [address], [place] [address] Aug, [facility] [address] [id number] [address] [place] [address], [place] [address] Jul, [facility] [address] [id number] [address] [place] [address], [place] [address] Jul, [facility] [address] [id number] [address] [place] [address], [place] [address] Jun, [facility] [address] [id number] [address] [place] [address], [place] [address] Jun, [facility] [address] [id number] [address] [place] [id number] May, [facility] [address] [id number] [address] [place] [address], [place] [address] May, [facility] [address] [id number] [address] [place] [address], [place] [address] May, [facility] [address] [id number] [address] [place] [address], [place] [address] May, [facility] [address] [id number] [address] [place] [address] Apr, [facility] [address] [id number] [address] [place] [address], [place] [address] Apr, [facility] [address] [id number] [address] [place] [address], [place] [address] Apr, [facility] [address] [id number] [address] [place] [address], [place] [address] Apr, [facility] [address] [id number] [address] [place] [address], [place] [address] Apr, [facility] [address] [id number] [address] [place] [address], [place] [address] Apr, [facility] [address] [id number] [address] [place] [address], [place] [address] Apr, [facility] [address] [id number] [address] [place] [address], [place] [address] Apr, [facility] [address] [id number] [address] [place] [address], [place] [address] Apr, [facility] [address] [id number] [address] [place] [address], [place] [id number] 15 Mar, 2012 [facility] [address] [id number] [address] [place] [address] Mar, [facility] [address] [id number] [address] [place] [address], [place] [address] Feb, [facility] [address] [id number] [address] [place] [address] Jan, [facility] [address] [id number] [address] [place] [address], [place] [address] Jan, [facility] [address] [id number] [address] [place] [address], [place] [address] Dec, [facility] [address] [id number] [address] [place] [address], [place] [address] Nov, [facility] [address] [id number] [address] [place] [address], [place] [address] Nov, [facility] [address] [id number] [address] [place] [address], [place] [address] October, [facility] [address] [id number] [address] [place] [address], [place] [address] October, [facility] [address] [id number] [address] [place] [address], [place] [address] Sep, [facility] [address] [id number] [address] [place] [address], [place] [address] Sep, [facility] [address] [id number] [address] [place] [address], [place] [address] May, [facility] [address] [id number] [address] [place] [address], [place] [address] Apr, [facility] [address] [id number] [address] [place] [address], [place] [address] Apr, [facility] [address] [id number] [address] [place] [address], [place] [address] Apr, [facility] [address] [id number] [address] [place] [address], [place] [address] Apr, [facility] [address] [id number] [address] [place] [address], [place] [address] 15 Apr, 2011 [facility] [address] [id number] [address] [place] [address], [place] [address] Apr, [facility] [address] [id number] [address] [place] [address], [place] [id number] 10 Apr, 2011 [facility] [address] [id number] [address] [place] [address], [place] [id number] 07 Apr, 2011 [facility] [address] [id number] [address] [place] [address], [place] [address] Mar, [facility] [address] [id number] [address] [place] [address] [address] Mar, [facility] [address] [facility] [id number] [address] [place] [id number] Mar, [facility] [address] [facility] [id number] [address] [place] [id number] Mar, [facility] [address] [facility] [id number] [address] [place] [id number] Mar, [facility] [address] [facility] [id number] [address] [place] [address] Mar, IMMUNIZATIONS No Known Immunizations SOCIAL HISTORY [...]
--- OUTSIDE RECORDS SUMMARY | 2019-12-24 19:53 | XMS REPORT ---
Author Author Trey ANDRADE Organization [facility] [place] Address [address] [place] [address] Care Team Providers Care Lacemaker Name Role Phone SURESH ANDRADE Unavailable PROBLEMS Type Condition ICD9-CM Code PEX90-AQ Code Onset Dates Condition S tatus SNOMED Code Problem Nondependent 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 Ac tive 757727002 Problem Other chronic pain G89.29 Active 1 80747187 Problem Unspecified epilepsy without mention of intractable ep ilepsy G40.909 Active 68939216 Problem Hyperlipidemia, unspecified E78.5 Ac tive 03460072 Problem Hypertension I10 Active 6027179 3 Problem Esophageal reflux K21.9 Active 23 9726598 Problem Rheumatoid arthritis M06.9 Active 39373783 Problem Cough R05 Active 07319122 Problem Acquired hypothyroidism E03.9 Active 137258115 Problem Unspecified open-angle glaucoma, stage unspecified H40.10X0 Feb, Active 92447771 Problem Presbyopia H52.4 Active 06455662 Problem Insomnia G47.00 Active 181001565 Problem Arthralgia M25.50 Active 94225215 Problem Thyroid nodule E04.1 Active 53880 5005 Problem Anxiety disorder, unspecified F41.9 Active 540711714 Problem Chronic tension-type headache, intractable G44.221 Active 521583688 Problem Neuropathy G62.9 Active 446921044 Problem Goiter E04.9 Active 7853600 Problem Multinodular goiter E04.2 Active 378085078 Problem Carpal tunnel syndrome of left wrist G56.02 Active 711055076265282 Problem Chronic obstructive pulmonary disease, unspecified COPD ty pe J44.9 Active 17259374 Problem BMI 40.0-44.9, adult Z68.41 Active 605149999 Problem Seasonal allergic rhinitis due to pollen J30.1 Active 15733975 Problem Depression F32.9 Active 81804723 Problem Essential hypertension I10 Active 20779829 Problem Depressive disorder F32.9 Active 45611198 Problem Right-sided low back pain without sciatica M54.5 Active 368794192 Problem Reactive airway disease with out complication, unspecified asthma severity, unspecified whether persistent J45.909 Active 896634144250 Problem Urge incontinence of urine N39.41 Act chen 21711419 Problem Abnormal laboratory test R89.9 Activ e 568290233 Problem COPD with exacerbation J44.1 Active 675072194 ALLERGIES No Information ENCOUNTERS Encounter Location Date Diagnosis [place] [address] [address] Feb, [place] [address] [address] Feb, [place] [address] [address] Feb, Mass of right side of neck R 22.1 and Multinodular goiter E04.2 [facility] [place] [address] [address] Jan, Bronchitis J40 [place] [address] [address] October, Acquired hypothyroidism E03. 9 [place] [address] [address] October, Acute gastritis without hemo rrhage, unspecified gastritis type K29.00 ; Epigastric pain R10.13 ; Essential hypertension I10 ; Screening for colon cancer Z12.11 and BMI 40.0-44.9, adult Z68.41 [place] [address] [address] October, [facility] W[facility] [place] [address] [address] October, Chest pain R07.9 and Morbid obesity E66.01 [facility] W[facility] IN [place] [address] [address] 19 Apr, 2019 Generalized abdominal pain R 10.84 ; Morbid obesity E66.01 ; Non-intractable vomiting with nausea, unspecified vomiting type R11.2 and Seasonal allergic rhinitis due to pollen J30.1 [facility] W[facility] [address] [facility] [id number] [address] [place] [address] 28 Jul, 2018 COPD with exacerbation J44.1 ; Viral upper respiratory tract infection J06.9 and Morbid obesity E66.01 [facility] [address] [facility] [id number] [address] [place] [address] Jun, Viral upper respiratory trac t infection J06.9 [place] [address] [address] [facility] [id number] [address] [place] [address] Apr, Abnormal laboratory test R89 .9 [place] [address] [address] [place] [id number] [address] [place] [address] Apr, Abnormal laboratory test R89 .9 [place] [address] [address] [place] [id number] [address] [place] [address] Apr, Abnormal laboratory test R89 .9 [place] [address] [address] [facility] [id number] [address] [place] [address] Apr, [place] [address] [address] [facility] [id number] [address] [place] [address] Apr, [place] [address] [address] [place] [id number] [address] [place] [address] Apr, Nonintractable episodic head ache, unspecified headache type R51 ; Urge incontinence of urine N39.41 ; BMI 40.0-44.9, adult Z68.41 ; Myalgia M79.10 and Acute cystitis without hematuria N30.00 [place] [address] [facility] [id number] [address] [place] [address] Mar, Nasal congestion R09.81 ; Lo w back pain M54.5 ; Reactive airway disease without complication, unspecified asthma severity, unspecified whether persistent J45.909 ; Other chronic pain G89.29 ; Acute cystitis with hematuria N30.01 and BMI 40.0-44.9, adult Z68.41 [facility] [place] [address] [address] Mar, Acute cystitis with hematuri a N30.01 [facility] W[facility] IN [facility] [address] [address] Mar, BMI 40.0-44.9, adult Z68.41 ; Acute cystitis with hematuria N30.01 ; Acute bilateral low back pain without sciatica M54.5 and Nausea R11.0 [place] [address] [address] 17 Mar, 2018 Hypertension I10 ; Acquired hypothyroidism E03.9 ; Esophageal reflux K21.9 ; Chronic obstructive pulmonary disease, unspecified COPD type J44.9 and BMI 40.0-44.9, adult Z68.[address] [address] Mar, Hypertension I10 [place] [address] [address] Nov, Hyperlipidemia, unspecified E78.[address] [address] October, Chest pain, unspecified type R07.9 and Acquired hypothyroidism E03.[address] [address] October, Chest pain, unspecified type R07.9 ; Family history of coronary artery disease Z82.49 ; Carpal tunnel syndrome of left wrist G56.02 ; Hypertension I10 ; Esophageal reflux K21.9 ; Arthralgia M25.50 ; Acquired hypothyroidism E03.9 ; Cough R05 ; Nausea R11.0 ; Weight gain R63.5 and BMI 45.0-49.9, adult Z68.42 [place] [address] [address] Jun, Acquired hypothyroidism E03. 9 and Cough R05 [place] [address] [id number] [place] [address] May, [place] [address] [address] Feb, Tarsal tunnel syndrome of timi th lower extremities G57.53 and Neuropathy G62.9 [place] [address] [address] Dec, Pleuritis R09.1 [place] [address] [address] Nov, [place] [address] [address] October, Arthralgia, unspecified join t M25.50 and Allergy, initial encounter T78.40XA [place] [address] [address] October, [place] [address] [address] October, Acute recurrent maxillary si nusitis J01.01 and Arthralgia M25.50 [place] [address] [address] Sep, Pharyngitis due to other org anism J02.8 [place] [address] [address] Aug, Acute nasopharyngitis J00 [place] [address] [address] Aug, Multinodular goiter E04.2 [place] [address] [address] Aug, Thyroid nodule E04.1 [place] [address] [place] [id number] [address] [place] [address] Jul, Tarsal tunnel syndrome of timi th lower extremities G57.53 [place] [address] [address] Jun, Pneumonia due to infectious organism, unspecified laterality, unspecified part of lung J18.9 [place] [address] [address] Jun, Bronchospasm with bronchitis , acute J20.9 [place] [address] [address] May, Acute non-recurrent frontal sinusitis J01.10 [place] [address] [address] May, Flat foot [pes planus] (acqu ired), left foot M21.42 ; Flat foot [pes planus] (acquired), right foot M21.41 and Neuropathy G62.[address] [address] Apr, Chronic tension-type headach e, intractable G44.221 ; Right lower quadrant abdominal pain R10.31 ; Cervicalgia M54.2 ; Acute gastritis without hemorrhage, unspecified gastritis type K29.00 and Hypertension I10 [address] [address] Mar, Depression F32.9 and Anxiety disorder, unspecified F41.9 [place] [address] [address] Feb, Depressive disorder F32.9 an d Anxiety disorder, unspecified F41.[address] [address] Jan, Dysuria R30.0 ; Lower abdomi nal pain R10.30 ; Acute bilateral low back pain without sciatica M54.5 ; Nausea and vomiting, unspecified intactability, vomiting of unspecified type R11.2 ; Pain in right foot M79.671 and Pain of left foot M79.[address] [place] [address] Dec, Urinary tract infection, sit e not specified N39.0 [facility] [place] [address] [facility] [id number] [address] [place] [address] Dec, [facility] [place] [address] [place] [id number] [address] [place] [address] Nov, [facility] [place] [address] [address] Nov, Dysuria R30.0 [facility] [place] [address] [place] [id number] [place] [address] Nov, Dysuria R30.0 and Acute cyst itis with hematuria N30.01 [facility] [place] [address] [place] [id number] [address] [place] [address] October, Nausea R11.0 [facility] [place] [address] [address] October, Thyroid nodule E04.1 ; Carpa l tunnel syndrome, left upper limb G56.02 ; Carpal tunnel syndrome, right upper limb G56.01 and Constipation, unspecified constipation type K59.00 [facility] [place] [address] [place] [id number] [address] [place] [address] October, [facility] [place] [address] [place] [id number] [address] [place] [address] October, Thyroid nodule E04.1 [facility] [place] [address] [place] [id number] [address] [place] [address] October, Cold thyroid nodule E04.1 [facility] [place] [address] [place] [id number] [address] [place] [address] October, [facility] [place] [address] [place] [id number] [address] [place] [address] Sep, Thyroid nodule E04.1 [facility] [place] [address] [place] [id number] [address] [place] [address] Sep, Thyroid nodule E04.1 [place] [address] [address] Sep, Thyroid nodule E04.1 ; Hyper tension I10 ; Esophageal reflux K21.9 and Hyperlipidemia, unspecified E78.5 [place] [address] [place] [id number] [address] [place] [address] 14 Aug, 2015 Other chronic pain G89.29 ; Sinusitis J32.9 and Hypertension I10 [place] [address] [address] 29 Jul, 2015 [place] [address] [address] 15 Jul, 2015 [place] [address] [address] 10 Jul, 2015 Insomnia G47.00 and Arthralg ia M25.50 [place] [address] [address] 10 Jul, 2015 Depressive disorder F32.9 an d Anxiety disorder, unspecified F41.9 [place] [address] [address] May, Right-sided low back pain wi thout sciatica M54.5 and Depression F32.9 [place] [address] [address] Apr, Hematuria R31.9 [place] [address] [address] [place] [id number] [address] [place] [address] Mar, Other chronic pain G89.29 [place] [address] [address] Mar, Other chronic pain G89.29 [place] [address] [place] [id number] [address] [place] [address] Feb, [place] [address] [address] Feb, Other chronic pain 338.29 ; Dysuria 788.1 ; UTI (urinary tract infection) 599.0 ; Insomnia 780.52 ; Hot flashes 627.2 and Hypertension 401.9 [facility] [place] [address] [facility] [id number] [address] [place] [address] Feb, Dysuria 788.1 [facility] [place] [address] [facility] [id number] [address] [place] [address] Feb, [facility] [place] [address] [facility] [id number] [address] [place] [address] Jan, [facility] [place] [address] [facility] [id number] [address] [place] [address] Jan, [facility] [place] [address] [place] [id number] [address] [place] [address] Jan, Fibromyalgia 729.1 ; Hyperte nsion 401.9 ; Dysthymia 300.4 and Hot flashes 627.2 [facility] [place] [address] [facility] [id number] [address] [place] [address] Dec, [facility] [place] [address] [facility] [id number] [address] [place] [address] Dec, [facility] [place] [address] [facility] [id number] [address] [place] [address] Dec, [facility] [place] [address] [facility] [id number] [address] [place] [address] Nov, Other chronic pain 338.29 [facility] [place] [address] [facility] [id number] [address] [place] [address] October, [facility] [place] [address] [facility] [id number] [address] [place] [address] October, [facility] [place] [address] [facility] [id number] [address] [place] [address] Sep, [facility] [place] [address] [facility] [id number] [address] [place] [phone] Sep, [facility] [address] [id number] [facility] [place] [address] Aug, [facility] [address] [id number] [address] [place] [address], [place] [address] Aug, [facility] [address] [id number] [address] [place] [address], [place] [address] Aug, [facility] [address] [id number] [address] [place] [address], [place] [address] Aug, [facility] [address] [id number] [address] [place] [address], [place] [address] Aug, [facility] [address] [id number] [address] [place] [address], [place] [address] Aug, [facility] [address] [id number] [address] [place] [address], [place] [address] Aug, [facility] [address] [id number] [address] [place] [address], [place] [address] Aug, [facility] [address] [id number] [address] [place] [address], [place] [address] Aug, [facility] [address] [id number] [address] [place] [address], [place] [address] Aug, [facility] [address] [id number] [address] [place] [address], [place] [address] Aug, [facility] [address] [id number] [address] [place] [address], [place] [address] Aug, [facility] [address] [id number] [address] [place] [address], [place] [address] Aug, [facility] [address] [id number] [address] [place] [address], [place] [address] Aug, [facility] [address] [id number] [address] [place] [address], [place] [address] Jul, [facility] [address] [id number] [address] [place] [address], [place] [address] Jul, [facility] [address] [id number] [address] [place] [address], [place] [address] Jul, 2014 [facility] [address] [id number] [address] [place] [address], [place] [address] Jul, 2014 [facility] [address] [id number] [address] [place] [address], [place] [address] Jul, [facility] [address] [id number] [address] [place] [address], [place] [address] Jul, [facility] [address] [id number] [address] [place] [address], [place] [address] Jun, [facility] [address] [id number] [address] [place] [address], [place] [address] Jun, [facility] [address] [id number] [address] [place] [address], [place] [address] Jun, [facility] [address] [id number] [address] [place] [address], [place] [address] Jun, [facility] [address] [id number] [address] [place] [address], [place] [address] May, [facility] [address] [id number] [address] [place] [address], [place] [address] May, [facility] [address] [id number] [address] [place] [address], [place] [address] May, [facility] [address] [id number] [address] [place] [address], [place] [address] May, [facility] [address] [id number] [address] [place] [address], [place] [address] May, [facility] [address] [id number] [address] [place] [address], [place] [address] May, [facility] [address] [id number] [address] [address] May, [facility] [address] [id number] [address] [place] [address], [place] [address] May, [facility] [address] [id number] [address] [place] [address], [place] [address] May, [facility] [address] [id number] [address] [place] [address], [place] [address] May, [facility] [address] [id number] [address] [place] [address] Apr, [facility] [address] [id number] [address] [place] [address], [place] [address] Apr, [facility] [address] [id number] [address] [place] [address], [place] [address] Apr, [facility] [address] [id number] [address] [place] [address], [place] [address] Apr, [facility] [address] [id number] [address] [place] [address], [place] [address] Apr, [facility] [address] [id number] [address] [place] [address], [place] [address] Apr, [facility] [address] [id number] [address] [place] [address], [place] [address] Apr, [facility] [address] [id number] [address] [place] [address] Apr, [facility] [address] [id number] [address] [place] [address] Apr, [facility] [address] [id number] [address] [place] [address], [place] [address] Mar, [facility] [address] [id number] [address] [place] [address], [place] [address] Mar, [facility] [address] [id number] [address] [place] [address] Mar, [facility] [address] [id number] [address] [place] [address], [place] [address] Mar, [facility] [address] [id number] [address] [place] [address], [place] [address] Mar, [facility] [address] [id number] [address] [place] [address], [place] [address] Mar, [facility] [address] [id number] [address] [place] [address], [place] [address] Mar, [facility] [address] [id number] [address] [place] [address], [place] [address] Mar, [facility] [address] [id number] [address] [place] [address], [place] [address] 30 Feb, 2013 [facility] [address] [id number] [address] [place] [address], [place] [address] 30 Feb, 2013 [facility] [address] [id number] [address] [place] [address], [place] [address] 24 Feb, 2013 [facility] [address] [id number] [address] [place] [address], [place] [address] 24 Feb, 2013 [facility] [address] [id number] [address] [place] [address], [place] [address] 22 Feb, 2013 [facility] [address] [id number] [address] [place] [address], [place] [address] 22 Feb, 2013 [facility] [address] [id number] [address] [place] [address], [place] [address] 10 Feb, 2013 [facility] [address] [id number] [address] [place] [address], [place] [address] 10 Feb, 2013 [facility] [address] [id number] [address] [place] [address], [place] [address] 03 Feb, 2013 [facility] [address] [id number] [address] [place] [address], [place] [address] 03 Feb, 2013 [facility] [address] [id number] [address] [place] [address], [place] [address] Feb, [facility] [address] [id number] [address] [place] [address], [place] [address] Feb, 2013 [facility] [address] [id number] [address] [place] [address], [place] [address] Feb, [facility] [address] [id number] [address] [place] [address], [place] [address] Feb, [facility] [address] [id number] [address] [place] [address], [place] [address] Jan, [facility] [address] [id number] [address] [place] [address], [place] [address] Jan, [facility] [address] [id number] [address] [place] [address], [place] [address] Dec, [facility] [address] [id number] [address] [place] [address], [place] [address] Dec, [facility] [address] [id number] [address] [place] [address], [place] [address] Dec, [facility] [address] [id number] [address] [place] [address], [place] [address] Dec, [facility] [address] [id number] [address] [place] [id number] Dec, [facility] [address] [id number] [address] [place] [address], [place] [address] Dec, [facility] [address] [id number] [address] [place] [address], [place] [address] Dec, [facility] [address] [id number] [address] [place] [address], [place] [address] Dec, [facility] [address] [id number] [address] [place] [address], [place] [address] Dec, [facility] [address] [id number] [address] [place] [address], [place] [address] Dec, [facility] [address] [id number] [address] [place] [address], [place] [address] Dec, 2013 [facility] [address] [id number] [address] [place] [address], [place] [address] Dec, 2013 [facility] [address] [id number] [address] [place] [address], [place] [address] Dec, 2013 [facility] [address] [id number] [address] [place] [address], [place] [address] Dec, 2013 [facility] [address] [id number] [address] [place] [address], [place] [address] Dec, 2013 [facility] [address] [id number] [address] [place] [address], [place] [address] Dec, 2013 [facility] [address] [id number] [address] [place] [address], [place] [address] Dec, 2013 [facility] [address] [id number] [address] [place] [address], [place] [address] Dec, [facility] [address] [id number] [address] [place] [address], [place] [address] Dec, [facility] [address] [id number] [address] [place] [address], [place] [address] Nov, [facility] [address] [id number] [address] [place] [address], [place] [address] Nov, [facility] [address] [id number] [address] [place] [address], [place] [address] Nov, [facility] [address] [id number] [address] [place] [address], [place] [address] Nov, [facility] [address] [id number] [address] [place] [address], [place] [address] Nov, [facility] [address] [id number] [address] [place] [address], [place] [address] Nov, [facility] [address] [id number] [address] [place] [address], [place] [address] Nov, [facility] [address] [id number] [facility] [place] [address] Nov, [facility] [address] [id number] [address] [place] [address], [place] [address] Nov, [facility] [address] [id number] [address] [place] [address], [place] [address] October, [facility] [address] [id number] [address] [place] [address], [place] [address] October, [facility] [address] [id number] [address] [place] [address], [place] [address] October, [facility] [address] [id number] [address] [place] [address], [place] [address] October, [facility] [address] [id number] [address] [place] [address], [place] [address] October, [facility] [address] [id number] [address] [place] [address], [place] [address] October, [facility] [address] [id number] [address] [place] [address], [place] [address] October, [facility] [address] [id number] [address] [place] [address], [place] [address] October, [facility] [address] [id number] [address] [place] [address], [place] [address] Sep, [facility] [address] [id number] [address] [place] [address], [place] [address] Sep, [facility] [address] [id number] [address] [place] [address], [place] [address] Sep, [facility] [address] [id number] [address] [place] [address], [place] [address] Sep, [facility] [address] [id number] [address] [place] [address], [place] [address] Sep, [facility] [address] [id number] [address] [place] [address], [place] [address] Sep, [facility] [address] [id number] [address] [place] [address], [place] [address] Sep, [facility] [address] [id number] [address] [place] [address], [place] [address] Aug, [facility] [address] [id number] [address] [place] [address], [place] [address] Aug, [facility] [address] [id number] [address] [place] [address], [place] [address] Aug, [facility] [address] [id number] [address] [place] [address], [place] [address] Aug, [facility] [address] [id number] [address] [place] [address], [place] [address] Aug, [facility] [address] [id number] [address] [place] [address], [place] [address] Aug, [facility] [address] [id number] [address] [place] [address], [place] [address] Jul, [facility] [address] [id number] [address] [place] [address], [place] [address] Jul, [facility] [address] [id number] [address] [place] [address], [place] [address] Jul, [facility] [address] [id number] [address] [place] [address], [place] [address] Jul, [facility] [address] [id number] [address] [place] [address], [place] [address] Jul, [facility] [address] [id number] [address] [place] [address], [place] [address] Jul, [facility] [address] [id number] [address] [place] [address], [place] [address] Jun, [facility] [address] [id number] [address] [place] [address], [place] [address] Jun, [facility] [address] [id number] [address] [place] [address], [place] [address] Jun, [facility] [address] [id number] [address] [place] [address], [place] [address] Jun, [facility] [address] [id number] [address] [place] [address], [place] [address] Jun, [facility] [address] [id number] [address] [place] [address], [place] [address] Jun, [facility] [address] [id number] [address] [place] [address], [place] [address] Jun, [facility] [address] [id number] [address] [place] [address], [place] [address] Jun, [facility] [address] [id number] [address] [place] [address], [place] [address] Jun, [facility] [address] [id number] [address] [place] [address], [place] [address] Jun, [facility] [address] [id number] [address] [place] [address], [place] [address] Jun, [facility] [address] [id number] [address] [place] [address], [place] [address] Jun, [facility] [address] [id number] [address] [place] [address], [place] [address] Jun, [facility] [address] [id number] [address] [place] [address], [place] [address] May, [facility] [address] [id number] [address] [place] [address], [place] [address] May, [facility] [address] [id number] [address] [place] [address], [place] [address] May, [facility] [address] [id number] [address] [place] [address], [place] [address] May, [facility] [address] [id number] [address] [place] [address], [place] [address] May, [facility] [address] [id number] [address] [place] [address], [place] [address] 14 May, 2013 [facility] [address] [id number] [address] [place] [address], [place] [address] 14 May, 2013 [facility] [address] [id number] [address] [place] [address], [place] [address] 12 May, 2013 [facility] [address] [id number] [address] [place] [address], [place] [address] May, [facility] [address] [id number] [address] [place] [address], [place] [address] May, [facility] [address] [id number] [address] [place] [address], [place] [address] May, [facility] [address] [id number] [address] [place] [address], [place] [address] May, [facility] [address] [id number] [address] [place] [address], [place] [address] 10 May, 2013 [facility] [address] [id number] [address] [place] [address], [place] [address] May, [facility] [address] [id number] [address] [place] [address], [place] [address] May, [facility] [address] [id number] [address] [place] [address], [place] [address] 08 May, 2013 [facility] [address] [id number] [address] [place] [address], [place] [address] 07 May, 2013 [facility] [address] [id number] [address] [place] [address], [place] [address] 06 May, 2013 [facility] [address] [id number] [address] [place] [address], [place] [address] 06 May, 2013 [facility] [address] [id number] [address] [place] [address], [place] [address] 06 May, 2013 [facility] [address] [id number] [address] [place] [address] May, [facility] [address] [id number] [address] [place] [address], [place] [address] Apr, [facility] [address] [id number] [address] [place] [address], [place] [address] Apr, [facility] [address] [id number] [address] [place] [address], [place] [address] Apr, [facility] [address] [id number] [address] [place] [address], [place] [address] Apr, [facility] [address] [id number] [address] [place] [address], [place] [address] Mar, [facility] [address] [id number] [address] [place] [address], [place] [address] 23 Feb, 2013 [facility] [address] [id number] [address] [place] [address], [place] [address] 16 Feb, 2013 [facility] [address] [id number] [address] [place] [address], [place] [address] 13 Feb, 2013 [facility] [address] [id number] [address] [place] [address], [place] [address] 10 Feb, 2013 [facility] [address] [id number] [address] [place] [address], [place] [address] 09 Feb, 2013 [facility] [address] [id number] [address] [place] [address], [place] [address] Feb, [facility] [address] [id number] [address] [place] [address], [place] [address] Jan, [facility] [address] [id number] [address] [place] [address], [place] [address] Jan, [facility] [address] [id number] [address] [place] [address], [place] [address] Jan, [facility] [address] [id number] [address] [place] [address], [place] [address] Dec, [facility] [address] [id number] [facility] [place] [address] 17 Dec, 2012 [facility] [address] [id number] [facility] [place] [address] 17 Dec, 2012 [facility] [address] [id number] [address] [place] [address], [place] [address] 15 Dec, 2012 [facility] [address] [id number] [address] [place] [address], [place] [address] Dec, [facility] [address] [id number] [address] [place] [address], [place] [address] Nov, [facility] [address] [id number] [address] [place] [address], [place] [address] Nov, [facility] [address] [id number] [address] [place] [address], [place] [address] Nov, [facility] [address] [id number] [address] [place] [address], [place] [address] Nov, [facility] [address] [id number] [address] [place] [address], [place] [address] Nov, [facility] [address] [id number] [address] [place] [address], [place] [address] 08 Nov, 2012 [facility] [address] [id number] [address] [place] [address], [place] [address] 07 Nov, 2012 [facility] [address] [id number] [address] [place] [address], [place] [address] Nov, [facility] [address] [id number] [address] [place] [address], [place] [address] 05 Nov, 2012 [facility] [address] [id number] [address] [place] [address], [place] [address] Nov, [facility] [address] [id number] [address] [place] [address], [place] [address] October, [facility] [address] [id number] [address] [place] [address] [address] October, [facility] [address] [id number] [address] [place] [address], [place] [address] Sep, [facility] [address] [id number] [address] [place] [address], [place] [address] Sep, [facility] [address] [id number] [address] [place] [address], [place] [address] Sep, [facility] [address] [id number] [address] [place] [address], [place] [address] Sep, [facility] [address] [id number] [address] [place] [address], [place] [address] Sep, [facility] [address] [id number] [address] [place] [address], [place] [address] Aug, [facility] [address] [id number] [address] [place] [address], [place] [address] Aug, [facility] [address] [id number] [address] [place] [address], [place] [address] Jul, [facility] [address] [id number] [address] [place] [address], [place] [address] Jul, [facility] [address] [id number] [address] [place] [address], [place] [address] Jun, [facility] [address] [id number] [address] [place] [address], [place] [address] Jun, [facility] [address] [id number] [address] [place] [address], [place] [address] May, [facility] [address] [id number] [address] [place] [address], [place] [address] May, [facility] [address] [id number] [address] [place] [address], [place] [address] May, [facility] [address] [id number] [address] [place] [address], [place] [address] May, [facility] [address] [id number] [address] [place] [address], [place] [address] 27 Apr, 2012 [facility] [address] [id number] [address] [place] [address], [place] [address] 27 Apr, 2012 [facility] [address] [id number] [address] [place] [address], [place] [address] Apr, [facility] [address] [id number] [address] [place] [address], [place] [address] Apr, [facility] [address] [id number] [address] [place] [address], [place] [address] Apr, [facility] [address] [id number] [address] [place] [address], [place] [address] Apr, [facility] [address] [id number] [address] [place] [address], [place] [address] Apr, [facility] [address] [id number] [address] [place] [address], [place] [address] Apr, [facility] [address] [id number] [address] [place] [address], [place] [address] Apr, [facility] [address] [id number] [address] [place] [address], [place] [address] Mar, [facility] [address] [id number] [address] [place] [address], [place] [address] 15 Mar, 2012 [facility] [address] [id number] [address] [place] [address], [place] [address] 05 Feb, 2012 [facility] [address] [id number] [address] [place] [address], [place] [address] Jan, [facility] [address] [id number] [address] [place] [address], [place] [address] Jan, [facility] [address] [id number] [address] [place] [address], [place] [address] Dec, [facility] [address] [id number] [address] [place] [address], [place] [address] Nov, [facility] [address] [id number] [address] [place] [address], [place] [address] Nov, [facility] [address] [id number] [address] [place] [address], [place] [address] October, [facility] [address] [id number] [address] [place] [address], [place] [address] October, [facility] [address] [id number] [address] [place] [address], [place] [address] Sep, [facility] [address] [id number] [address] [place] [address], [place] [address] Sep, [facility] [address] [id number] [address] [place] [address], [place] [address] May, [facility] [address] [id number] [address] [place] [address], [place] [address] Apr, [facility] [address] [id number] [address] [place] [address], [place] [address] Apr, [facility] [address] [id number] [address] [place] [address], [place] [address] Apr, [facility] [address] [id number] [address] [place] [address] Apr, [facility] [address] [id number] [address] [place] [address] 15 Apr, 2011 [facility] [address] [id number] [address] [place] [address] Apr, [facility] [address] [id number] [address] [place] [address], [place] [address] 10 Apr, 2011 [facility] [address] [id number] [address] [place] [id number] 07 Apr, 2011 [facility] [address] [id number] [address] [place] [id number] Mar, [facility] [address] [id number] [address] [place] [address] Mar, [facility] [place] [address] [facility] [id number] [address] [place] [address] Mar, [facility] [place] [address] [facility] [id number] [address] [place] [address] Mar, [facility] [place] [address] [facility] [id number] [address] [place] [id number] Mar, [facility] [place] [address] [facility] [id number] [address] [place] [address] Mar, IMMUNIZATIONS No Known Immunizations SOCIAL HISTORY [...] Stomach surgeryx3 Hospitalization History Mental floor at [facility]
--- OUTSIDE RECORDS SUMMARY | 2019-12-24 19:53 | XMS REPORT ---
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 Operator Name Role Phone SYBIL POLK Unavailable PROBLEMS Type Condition ICD9-CM Code VLO04-HW Code Onset Dates Condition S tatus SNOMED Code Problem Nondependent 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 Ac tive 272628575 Problem Other chronic pain G89.29 Active 1 94517972 Problem Unspecified epilepsy without mention of intractable ep ilepsy G40.909 Active 98278451 Problem Hyperlipidemia, unspecified E78.5 Ac tive 20596201 Problem Hypertension I10 Active 3925368 3 Problem Esophageal reflux K21.9 Active 23 2441260 Problem Rheumatoid arthritis M06.9 Active 44351056 Problem Cough R05 Active 51747539 Problem Acquired hypothyroidism E03.9 Active 853147278 Problem Unspecified open-angle glaucoma, stage unspecified H40.10X0 Feb, Active 84718111 Problem Presbyopia H52.4 Active 29993553 Problem Insomnia G47.00 Active 059725560 Problem Arthralgia M25.50 Active 20340093 Problem Thyroid nodule E04.1 Active 97737 5005 Problem Anxiety disorder, unspecified F41.9 Active 696246548 Problem Chronic tension-type headache, intractable G44.221 Active 167840598 Problem Neuropathy G62.9 Active 999855565 Problem Goiter E04.9 Active 1448241 Problem Multinodular goiter E04.2 Active 314740898 Problem Carpal tunnel syndrome of left wrist G56.02 Active [id number] Problem Chronic obstructive pulmonary disease, unspecified COPD ty pe J44.9 Active 04705532 Problem BMI 40.0-44.9, adult Z68.41 Active 251850051 Problem Seasonal allergic rhinitis due to pollen J30.1 Active 46693272 Problem Depression F32.9 Active 29183040 Problem Essential hypertension I10 Active 14289336 Problem Depressive disorder F32.9 Active 27126720 Problem Right-sided low back pain without sciatica M54.5 Active 953715010 Problem Reactive airway disease with out complication, unspecified asthma severity, unspecified whether persistent J45.909 Active 630724828663 Problem Urge incontinence of urine N39.41 Act chen 21021268 Problem Abnormal laboratory test R89.9 Activ e 433250087 Problem COPD with exacerbation J44.1 Active 872483876 ALLERGIES No Information ENCOUNTERS Encounter Location Date Diagnosis [place] [address] [address] Feb, [place] [address] [address] Feb, [place] [address] [address] Feb, Mass of right side of neck R 22.1 and Multinodular goiter E04.2 [facility] [place] [address] [address] Jan, Bronchitis J40 [place] [address] [address] October, Acquired hypothyroidism E03. 9 [place] [address] [address] October, Acute gastritis without hemo rrhage, unspecified gastritis type K29.00 ; Epigastric pain R10.13 ; Essential hypertension I10 ; Screening for colon cancer Z12.11 and BMI 40.0-44.9, adult Z68.41 [place] [address] [address] October, [facility] [place] [address] [address] October, Chest pain R07.9 and Morbid obesity E66.01 [facility] [place] [address] [address] Sep, Generalized abdominal pain R 10.84 ; Morbid obesity E66.01 ; Non-intractable vomiting with nausea, unspecified vomiting type R11.2 and Seasonal allergic rhinitis due to pollen J30.1 [facility] [address] [address] 28 Jul, 2018 COPD with exacerbation J44.1 ; Viral upper respiratory tract infection J06.9 and Morbid obesity E66.01 [facility] [address] [place] [id number] [place] [address] Jun, Viral upper respiratory trac t infection J06.9 [facility] [address] [place] [id number] [place] [address] Apr, Abnormal laboratory test R89 .9 [place] [address] [place] [id number] [place] [address] Apr, Abnormal laboratory test R89 .9 [place] [address] [place] [id number] [address] [place] [address] Apr, Abnormal laboratory test R89 .9 [place] [address] [place] [id number] [place] [address] Apr, [place] [address] [place] [id number] [place] [address] Apr, [place] [address] [place] [id number] [place] [address] Apr, Nonintractable episodic head ache, unspecified headache type R51 ; Urge incontinence of urine N39.41 ; BMI 40.0-44.9, adult Z68.41 ; Myalgia M79.10 and Acute cystitis without hematuria N30.00 [place] [id number] [place] [address] Mar, Nasal congestion R09.81 ; Lo w back pain M54.5 ; Reactive airway disease without complication, unspecified asthma severity, unspecified whether persistent J45.909 ; Other chronic pain G89.29 ; Acute cystitis with hematuria N30.01 and BMI 40.0-44.9, adult Z68.41 [facility] [address] [address] Mar, Acute cystitis with hematuri a N30.01 [facility] [address] [address] Mar, BMI 40.0-44.9, adult Z68.41 ; Acute cystitis with hematuria N30.01 ; Acute bilateral low back pain without sciatica M54.5 and Nausea R11.0 [place] [address] [address] 17 Mar, 2018 Hypertension I10 ; Acquired hypothyroidism E03.9 ; Esophageal reflux K21.9 ; Chronic obstructive pulmonary disease, unspecified COPD type J44.9 and BMI 40.0-44.9, adult Z68.[address] [address] Mar, Hypertension I10 [place] [address] [address] Nov, Hyperlipidemia, unspecified E78.[address] [address] October, Chest pain, unspecified type R07.9 and Acquired hypothyroidism E03.[address] [address] October, Chest pain, unspecified type R07.9 ; Family history of coronary artery disease Z82.49 ; Carpal tunnel syndrome of left wrist G56.02 ; Hypertension I10 ; Esophageal reflux K21.9 ; Arthralgia M25.50 ; Acquired hypothyroidism E03.9 ; Cough R05 ; Nausea R11.0 ; Weight gain R63.5 and BMI 45.0-49.9, adult Z68.[address] [address] Jun, Acquired hypothyroidism E03. 9 and Cough R05 [address] [place] [address] May, [place] [address] [address] Feb, Tarsal tunnel syndrome of timi th lower extremities G57.53 and Neuropathy G62.9 [place] [address] [address] Dec, Pleuritis R09.1 [place] [address] [address] Nov, [place] [address] [address] October, Arthralgia, unspecified join t M25.50 and Allergy, initial encounter T78.40XA [place] [address] [address] October, [place] [address] [address] October, Acute recurrent maxillary si nusitis J01.01 and Arthralgia M25.50 [place] [address] [address] Sep, Pharyngitis due to other org anism J02.8 [place] [address] [address] Aug, Acute nasopharyngitis J00 [place] [address] [address] Aug, Multinodular goiter E04.2 [place] [address] [address] Aug, Thyroid nodule E04.1 [place] [address] [place] [id number] [address] [place] [address] 17 Jul, 2016 Tarsal tunnel syndrome of timi th lower extremities G57.53 [place] [address] [address] Jun, Pneumonia due to infectious organism, unspecified laterality, unspecified part of lung J18.9 [place] [address] [address] Jun, Bronchospasm with bronchitis , acute J20.9 [place] [address] [address] May, Acute non-recurrent frontal sinusitis J01.10 [place] [address] [address] May, Flat foot [pes planus] (acqu ired), left foot M21.42 ; Flat foot [pes planus] (acquired), right foot M21.41 and Neuropathy G62.[address] [address] Apr, Chronic tension-type headach e, intractable G44.221 ; Right lower quadrant abdominal pain R10.31 ; Cervicalgia M54.2 ; Acute gastritis without hemorrhage, unspecified gastritis type K29.00 and Hypertension I10 [place] [address] [address] Mar, Depression F32.9 and Anxiety disorder, unspecified F41.9 [place] [address] [address] Feb, Depressive disorder F32.9 an d Anxiety disorder, unspecified F41.9 [place] [address] [address] Jan, Dysuria R30.0 ; Lower abdomi nal pain R10.30 ; Acute bilateral low back pain without sciatica M54.5 ; Nausea and vomiting, unspecified intactability, vomiting of unspecified type R11.2 ; Pain in right foot M79.671 and Pain of left foot M79.672 [place] [address] [address] Dec, Urinary tract infection, sit e not specified N39.0 [facility] [address] [facility] [id number] [address] [place] [address] Dec, [facility] [address] [facility] [id number] [address] [place] [address] Nov, [facility] [address] [place] [id number] [place] [address] Nov, Dysuria R30.0 [facility] [address] [facility] [id number] [address] [place] [address] Nov, Dysuria R30.0 and Acute cyst itis with hematuria N30.01 [facility] [address] [facility] [id number] [address] [place] [address] October, Nausea R11.0 [facility] [address] [place] [id number] [place] [address] October, Thyroid nodule E04.1 ; Carpa l tunnel syndrome, left upper limb G56.02 ; Carpal tunnel syndrome, right upper limb G56.01 and Constipation, unspecified constipation type K59.00 [facility] [address] [place] [id number] [place] [address] October, [facility] [address] [place] [id number] [place] [address] October, Thyroid nodule E04.1 [facility] [address] [place] [id number] [place] [address] October, Cold thyroid nodule E04.1 [facility] [address] [facility] [id number] [address] [place] [address] October, [facility] [address] [place] [id number] [place] [address] Sep, Thyroid nodule E04.1 [facility] [address] [place] [id number] [place] [address] Sep, Thyroid nodule E04.1 [facility] [address] [place] [id number] [place] [address] 19 Sep, 2015 Thyroid nodule E04.1 ; Hyper tension I10 ; Esophageal reflux K21.9 and Hyperlipidemia, unspecified E78.5 [place] [address] [place] [id number] [place] [address] 14 Aug, 2015 Other chronic pain G89.29 ; Sinusitis J32.9 and Hypertension I10 [place] [id number] [place] [address] 29 Jul, 2015 [place] [address] [address] 15 Jul, 2015 [place] [address] [place] [id number] [place] [address] 10 Jul, 2015 Insomnia G47.00 and Arthralg ia M25.50 [place] [address] [place] [id number] [place] [address] 10 Jul, 2015 Depressive disorder F32.9 an d Anxiety disorder, unspecified F41.9 [place] [address] [address] May, Right-sided low back pain wi thout sciatica M54.5 and Depression F32.9 [place] [address] [address] Apr, Hematuria R31.9 [place] [address] [place] [id number] [place] [address] Mar, Other chronic pain G89.29 [place] [address] [address] Mar, Other chronic pain G89.29 [place] [address] [place] [id number] [place] [address] 28 Feb, 2015 [place] [address] [address] Feb, Other chronic pain 338.29 ; Dysuria 788.1 ; UTI (urinary tract infection) 599.0 ; Insomnia 780.52 ; Hot flashes 627.2 and Hypertension 401.9 [facility] [address] [facility] [id number] [address] [place] [address] Feb, Dysuria 788.1 [facility] [address] [facility] [id number] [address] [place] [address] Feb, [facility] [address] [facility] [id number] [address] [place] [address] Jan, [facility] [address] [facility] [id number] [address] [place] [address] Jan, [facility] [address] [facility] [id number] [address] [place] [address] Jan, Fibromyalgia 729.1 ; Hyperte nsion 401.9 ; Dysthymia 300.4 and Hot flashes 627.2 [facility] [address] [facility] [id number] [address] [place] [address] Dec, [facility] [address] [facility] [id number] [address] [place] [address] Dec, [facility] [address] [facility] [id number] [address] [place] [address] Dec, [facility] [address] [facility] [id number] [address] [place] [address] Nov, Other chronic pain 338.29 [facility] [address] [facility] [id number] [address] [place] [address] October, [facility] [address] [facility] [id number] [address] [place] [address] October, [facility] [address] [facility] [id number] [address] [place] [address] Sep, [facility] [address] [facility] [id number] [address] [place] [address] 13 Sep, 2014 [facility] [address] [id number] [facility] [place] [address] Aug, [facility] [place] [facility] [address] [id number] [address] [place] [address], [place] [address] Aug, [facility] [place] [facility] [address] [id number] [address] [place] [address], [place] [address] Aug, [facility] [place] [facility] [address] [id number] [address] [place] [address], [place] [address] Aug, [facility] [place] [facility] [address] [id number] [address] [place] [address], [place] [address] Aug, [facility] [place] [facility] [address] [id number] [address] [place] [address], [place] [address] Aug, [facility] [place] [facility] [address] [id number] [address] [place] [address], [place] [address] Aug, [facility] [place] [facility] [address] [id number] [address] [place] [address], [place] [address] Aug, [facility] [place] [facility] [address] [id number] [address] [place] [address], [place] [address] Aug, [facility] [place] [facility] [address] [id number] [address] [place] [address], [place] [address] Aug, [facility] [place] [facility] [address] [id number] [address] [place] [address], [place] [address] Aug, [facility] [place] [facility] [address] [id number] [address] [place] [address], [place] [address] Aug, [facility] [place] [facility] [address] [id number] [address] [place] [address], [place] [address] Aug, [facility] [place] [facility] [address] [id number] [address] [place] [address], [place] [address] Aug, [facility] [place] [facility] [address] [id number] [address] [place] [address], [place] [address] Jul, [facility] [place] [facility] [address] [id number] [address] [place] [address], [place] [address] Jul, [facility] [address] [id number] [address] [place] [address], [place] [address] Jul, 2014 [facility] [address] [id number] [address] [place] [address], [place] [address] Jul, 2014 [facility] [address] [id number] [address] [place] [address], [place] [address] Jul, [facility] [address] [id number] [address] [place] [address], [place] [address] Jul, [facility] [address] [id number] [address] [place] [address], [place] [address] Jun, [facility] [address] [id number] [address] [place] [address], [place] [address] Jun, [facility] [address] [id number] [address] [place] [address], [place] [address] Jun, [facility] [address] [id number] [address] [place] [address], [place] [address] Jun, [facility] [address] [id number] [address] [place] [address], [place] [address] May, [facility] [address] [id number] [address] [place] [address], [place] [address] May, [facility] [address] [id number] [address] [place] [address], [place] [address] May, [facility] [address] [id number] [address] [place] [address], [place] [address] May, [facility] [address] [id number] [address] [place] [address], [place] [address] May, [facility] [address] [id number] [address] [place] [address], [place] [address] May, [facility] [address] [id number] [address] [place] [address], [place] [address] May, [facility] [place] [facility] [address] [id number] [address] [place] [address], [place] [address] May, [facility] [place] [facility] [address] [id number] [address] [place] [address], [place] [address] May, [facility] [place] [facility] [address] [id number] [address] [place] [address], [place] [address] May, [facility] [place] [facility] [address] [id number] [address] [place] [address], [place] [address] Apr, [facility] [place] [facility] [address] [id number] [address] [place] [address], [place] [address] Apr, [facility] [place] [facility] [address] [id number] [address] [place] [address], [place] [address] Apr, [facility] [place] [facility] [address] [id number] [address] [place] [address], [place] [address] Apr, [facility] [place] [facility] [address] [id number] [address] [place] [address], [place] [address] Apr, [facility] [place] [facility] [address] [id number] [address] [place] [address], [place] [address] Apr, [facility] [place] [facility] [address] [id number] [address] [place] [address], [place] [address] Apr, [facility] [place] [facility] [address] [id number] [address] [place] [address], [place] [address] Apr, [facility] [place] [facility] [address] [id number] [address] [place] [address], [place] [address] Apr, [facility] [place] [facility] [address] [id number] [address] [place] [address], [place] [address] Mar, [facility] [place] [facility] [address] [id number] [address] [place] [address], [place] [address] Mar, [facility] [place] [facility] [address] [id number] [address] [place] [address], [place] [address] Mar, [facility] [place] [facility] [address] [id number] [address] [place] [address] [place] [address] 28 Mar, 2013 [facility] [address] [id number] [address] [place] [address], [place] [address] 08 Mar, 2013 [facility] [place] [facility] [address] [id number] [address] [place] [address], [place] [address] 08 Mar, 2013 [facility] [place] [facility] [address] [id number] [address] [place] [address], [place] [address] 08 Mar, 2013 [facility] [place] [facility] [address] [id number] [address] [place] [address], [place] [address] 08 Mar, 2014 [facility] [address] [id number] [address] [place] [address], [place] [address] 30 Sep, 2013 [facility] [place] [facility] [address] [id number] [address] [place] [address], [place] [address] 30 Sep, 2013 [facility] [address] [id number] [address] [place] [address], [place] [address] 24 Sep, 2013 [facility] [place] [facility] [address] [id number] [address] [place] [address], [place] [address] 24 Sep, 2013 [facility] [address] [id number] [address] [place] [address], [place] [address] 22 Sep, 2013 [facility] [place] [facility] [address] [id number] [address] [place] [address], [place] [address] 22 Sep, 2013 [facility] [address] [id number] [address] [place] [address], [place] [address] 10 Sep, 2013 [facility] [address] [id number] [address] [place] [address], [place] [address] 10 Sep, 2013 [facility] [address] [id number] [address] [place] [address], [place] [address] 03 Sep, 2013 [facility] [address] [id number] [address] [place] [address], [place] [address] 03 Sep, 2013 [facility] [address] [id number] [address] [place] [address], [place] [address] 03 Sep, 2013 [facility] [address] [id number] [facility] [place] [address] Feb, 2013 [facility] [address] [id number] [address] [place] [address], [place] [address] Feb, [facility] [address] [id number] [address] [place] [address], [place] [address] Feb, [facility] [address] [id number] [address] [place] [address], [place] [address] Jan, [facility] [address] [id number] [address] [place] [address], [place] [address] Jan, [facility] [address] [id number] [address] [place] [address], [place] [address] Dec, [facility] [address] [id number] [address] [place] [address], [place] [address] Dec, [facility] [address] [id number] [address] [place] [address], [place] [address] Dec, [facility] [address] [id number] [address] [place] [address], [place] [address] Dec, [facility] [address] [id number] [address] [place] [address], [place] [id number] Dec, [facility] [address] [id number] [address] [place] [address], [place] [address] Dec, [facility] [address] [id number] [address] [place] [address], [place] [address] Dec, [facility] [address] [id number] [address] [place] [address], [place] [address] Dec, [facility] [address] [id number] [address] [place] [address], [place] [address] Dec, [facility] [address] [id number] [address] [place] [address], [place] [address] Dec, [facility] [address] [id number] [address] [place] [address], [place] [address] Dec, 2013 [facility] [address] [id number] [facility] [place] [address] Dec, 2013 [facility] [address] [id number] [address] [place] [address], [place] [address] Dec, 2013 [facility] [address] [id number] [address] [place] [address], [place] [address] Dec, 2013 [facility] [address] [id number] [address] [place] [address], [place] [address] Dec, 2013 [facility] [address] [id number] [address] [place] [address], [place] [address] Dec, 2013 [facility] [address] [id number] [address] [place] [address], [place] [address] Dec, [facility] [facility] [address] [id number] [address] [place] [address], [place] [address] Dec, [facility] [address] [id number] [address] [place] [address], [place] [address] Dec, [facility] [address] [id number] [address] [place] [address], [place] [address] Nov, [facility] [address] [id number] [address] [place] [address], [place] [address] Nov, [facility] [address] [id number] [address] [place] [address], [place] [address] Nov, [facility] [address] [id number] [address] [place] [address], [place] [address] Nov, [facility] [address] [id number] [address] [place] [address], [place] [address] Nov, [facility] [address] [id number] [address] [place] [address], [place] [address] Nov, [facility] [address] [id number] [address] [place] [address], [place] [address] Nov, [facility] [address] [id number] [address] [place] [address], [place] [address] Nov, [facility] [address] [id number] [address] [place] [address], [place] [address] Nov, [facility] [address] [id number] [address] [place] [address], [place] [address] October, [facility] [address] [id number] [address] [place] [address], [place] [address] October, [facility] [address] [id number] [address] [place] [address], [place] [address] October, [facility] [address] [id number] [address] [place] [address], [place] [address] October, [facility] [address] [id number] [address] [place] [address], [place] [address] October, [facility] [address] [id number] [address] [place] [address], [place] [address] October, [facility] [address] [id number] [address] [place] [address], [place] [address] October, [facility] [address] [id number] [address] [place] [address], [place] [address] October, [facility] [address] [id number] [address] [place] [address], [place] [address] Sep, [facility] [address] [id number] [address] [place] [address], [place] [address] Sep, [facility] [address] [id number] [address] [place] [address], [place] [address] Sep, [facility] [address] [id number] [address] [place] [address], [place] [address] Sep, [facility] [address] [id number] [address] [place] [address], [place] [address] Sep, [facility] [address] [id number] [address] [place] [address], [place] [address] Sep, [facility] [address] [id number] [address] [place] [address], [place] [address] Sep, [facility] [address] [id number] [address] [place] [address], [place] [address] Aug, [facility] [address] [id number] [address] [place] [address], [place] [address] Aug, [facility] [address] [id number] [address] [place] [address], [place] [address] Aug, [facility] [address] [id number] [address] [place] [address], [place] [address] Aug, [facility] [address] [id number] [address] [place] [address], [place] [address] Aug, [facility] [address] [id number] [address] [place] [address], [place] [address] Aug, [facility] [address] [id number] [address] [place] [address], [place] [address] Jul, [facility] [address] [id number] [address] [place] [address], [place] [address] Jul, [facility] [address] [id number] [address] [place] [address], [place] [address] Jul, [facility] [address] [id number] [address] [place] [address], [place] [address] Jul, [facility] [address] [id number] [address] [place] [address], [place] [address] Jul, [facility] [address] [id number] [address] [place] [address], [place] [address] Jul, [facility] [address] [id number] [address] [place] [address], [place] [address] Jun, [facility] [address] [id number] [address] [place] [address], [place] [address] Jun, [facility] [address] [id number] [address] [place] [address], [place] [address] Jun, [facility] [address] [id number] [address] [place] [address], [place] [address] Jun, [facility] [address] [id number] [address] [place] [address], [place] [address] Jun, [facility] [address] [id number] [address] [place] [address], [place] [address] Jun, [facility] [address] [id number] [address] [place] [address], [place] [address] Jun, [facility] [address] [id number] [address] [place] [address], [place] [address] Jun, [facility] [address] [id number] [address] [place] [address], [place] [address] Jun, [facility] [address] [id number] [address] [place] [address], [place] [address] Jun, [facility] [address] [id number] [address] [place] [address], [place] [address] Jun, [facility] [address] [id number] [address] [place] [address], [place] [address] Jun, [facility] [address] [id number] [address] [place] [address], [place] [address] Jun, [facility] [address] [id number] [address] [place] [address], [place] [address] May, [facility] [address] [id number] [address] [place] [address], [place] [address] May, [facility] [address] [id number] [address] [place] [address], [place] [address] May, [facility] [address] [id number] [address] [place] [address], [place] [address] May, [facility] [address] [id number] [address] [place] [address], [place] [address] May, [facility] [address] [id number] [address] [place] [address], [place] [address] 14 May, 2013 [facility] [address] [id number] [address] [place] [address], [place] [address] 14 May, 2013 [facility] [address] [id number] [address] [place] [address], [place] [address] 12 May, 2013 [facility] [address] [id number] [address] [place] [address], [place] [address] 12 May, 2013 [facility] [address] [id number] [address] [place] [address], [place] [address] May, [facility] [address] [id number] [address] [place] [address], [place] [address] May, [facility] [address] [id number] [address] [place] [address], [place] [address] May, [facility] [address] [id number] [address] [place] [address], [place] [address] May, [facility] [address] [id number] [address] [place] [address], [place] [address] May, [facility] [address] [id number] [address] [place] [address], [place] [address] May, [facility] [address] [id number] [address] [place] [address], [place] [address] 08 May, 2013 [facility] [address] [id number] [address] [place] [address], [place] [address] 07 May, 2013 [facility] [address] [id number] [address] [place] [address], [place] [address] 06 May, 2013 [facility] [address] [id number] [address] [place] [address], [place] [address] May, [facility] [address] [id number] [address] [place] [address], [place] [address] 06 May, 2013 [facility] [address] [id number] [address] [place] [address], [place] [address] May, [facility] [address] [id number] [address] [place] [address], [place] [address] Apr, [facility] [address] [id number] [address] [place] [address], [place] [address] Apr, [facility] [address] [id number] [address] [place] [address], [place] [address] Apr, [facility] [address] [id number] [address] [place] [address], [place] [address] Apr, [facility] [address] [id number] [address] [place] [address], [place] [address] Mar, [facility] [address] [id number] [address] [place] [address], [place] [address] 23 Feb, 2013 [facility] [address] [id number] [address] [place] [address], [place] [address] 16 Feb, 2013 [facility] [address] [id number] [address] [place] [address], [place] [address] 13 Feb, 2013 [facility] [address] [id number] [address] [place] [address], [place] [address] 10 Feb, 2013 [facility] [address] [id number] [address] [place] [address], [place] [address] 09 Feb, 2013 [facility] [address] [id number] [address] [place] [address], [place] [address] Feb, [facility] [address] [id number] [address] [place] [address], [place] [address] Jan, [facility] [address] [id number] [address] [place] [address], [place] [address] Jan, [facility] [address] [id number] [address] [place] [address], [place] [address] Jan, [facility] [address] [id number] [address] [place] [address], [place] [address] Dec, [facility] [address] [id number] [facility] [place] [address] 17 Dec, 2012 [facility] [address] [id number] [address] [place] [address], [place] [address] 17 Dec, 2012 [facility] [address] [id number] [address] [place] [address], [place] [address] 15 Dec, 2012 [facility] [address] [id number] [address] [place] [address], [place] [address] Dec, [facility] [address] [id number] [address] [place] [address], [place] [address] Nov, [facility] [address] [id number] [address] [place] [address], [place] [address] Nov, [facility] [address] [id number] [address] [place] [address], [place] [address] Nov, [facility] [address] [id number] [address] [place] [address], [place] [address] Nov, [facility] [address] [id number] [address] [place] [address], [place] [address] Nov, [facility] [address] [id number] [address] [place] [address], [place] [address] 08 Nov, 2012 [facility] [address] [id number] [address] [place] [address], [place] [address] 07 Nov, 2012 [facility] [address] [id number] [address] [place] [address], [place] [address] 06 Nov, 2012 [facility] [address] [id number] [address] [place] [address], [place] [address] 05 Nov, 2012 [facility] [address] [id number] [address] [place] [address], [place] [address] Nov, [facility] [address] [id number] [address] [place] [address], [place] [address] October, [facility] [address] [id number] [address] [place] [address], [place] [address] October, [facility] [address] [id number] [address] [place] [address], [place] [address] Sep, [facility] [address] [id number] [address] [place] [address], [place] [address] Sep, [facility] [address] [id number] [address] [place] [address], [place] [address] Sep, [facility] [address] [id number] [address] [place] [address], [place] [address] Sep, [facility] [address] [id number] [address] [place] [address], [place] [address] Sep, [facility] [address] [id number] [address] [place] [address], [place] [address] Aug, [facility] [address] [id number] [address] [place] [address], [place] [address] Aug, [facility] [address] [id number] [address] [place] [address], [place] [address] Jul, [facility] [address] [id number] [address] [place] [address], [place] [address] Jul, [facility] [address] [id number] [address] [place] [address], [place] [address] Jun, [facility] [address] [id number] [address] [place] [address], [place] [address] Jun, [facility] [address] [id number] [address] [place] [address] May, [facility] [address] [id number] [address] [place] [address], [place] [address] May, [facility] [address] [id number] [address] [place] [address], [place] [address] May, [facility] [address] [id number] [address] [place] [address], [place] [address] May, [facility] [address] [id number] [address] [place] [address] Apr, [facility] [address] [id number] [address] [place] [address], [place] [address] Apr, [facility] [address] [id number] [address] [place] [address], [place] [address] Apr, [facility] [address] [id number] [address] [place] [address], [place] [address] Apr, [facility] [address] [id number] [address] [place] [address], [place] [address] Apr, [facility] [address] [id number] [address] [place] [address], [place] [address] Apr, [facility] [address] [id number] [address] [place] [address], [place] [address] Apr, [facility] [address] [id number] [address] [place] [address], [place] [address] Apr, [facility] [address] [id number] [address] [place] [address], [place] [address] Apr, [facility] [address] [id number] [address] [place] [address], [place] [address] 15 Mar, 2012 [facility] [address] [id number] [address] [place] [address] Mar, [facility] [address] [id number] [address] [place] [address], [place] [address] Feb, [facility] [address] [id number] [address] [place] [address] Jan, [facility] [address] [id number] [address] [place] [address], [place] [address] Jan, [facility] [address] [id number] [address] [place] [address], [place] [address] Dec, [facility] [address] [id number] [address] [place] [address], [place] [address] Nov, [facility] [address] [id number] [address] [place] [address], [place] [address] Nov, [facility] [address] [id number] [address] [place] [address], [place] [address] October, [facility] [address] [id number] [address] [place] [address], [place] [address] October, [facility] [address] [id number] [address] [place] [address], [place] [address] Sep, [facility] [address] [id number] [address] [place] [address], [place] [address] Sep, [facility] [address] [id number] [address] [place] [address], [place] [address] May, [facility] [address] [id number] [address] [place] [address], [place] [address] Apr, [facility] [address] [id number] [address] [place] [address], [place] [address] Apr, [facility] [address] [id number] [address] [place] [address], [place] [address] Apr, [facility] [address] [id number] [address] [place] [address], [place] [address] Apr, [facility] [address] [id number] [address] [place] [address], [place] [address] 15 Apr, 2011 [facility] [address] [id number] [address] [place] [address], [place] [address] Apr, [facility] [address] [id number] [address] [place] [address], [place] [address] 10 Apr, 2011 [facility] [address] [id number] [address] [place] [address], [place] [address] 07 Apr, 2011 [facility] [address] [id number] [address] [place] [address], [place] [address] Mar, [facility] [address] [id number] [address] [place] [address] [address] Mar, [facility] [address] [facility] [id number] [address] [place] [address] Mar, [facility] [address] [facility] [id number] [address] [place] [address] Mar, [facility] [address] [facility] [id number] [address] [place] [address] Mar, [facility] [address] [facility] [id number] [address] [place] [address] Mar, IMMUNIZATIONS No Known Immunizations SOCIAL HISTORY [...] Stomach surgeryx3 Hospitalization History Mental floor at [facility]
--- OUTSIDE RECORDS SUMMARY | 2019-12-24 19:54 | XMS REPORT ---
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 Name Role Phone SYBIL POLK Unavailable PROBLEMS Type Condition ICD9-CM Code MNO36-LZ Code Onset Dates Condition S tatus SNOMED Code Problem Nondependent 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 Ac tive 910544296 Problem Other chronic pain G89.29 Active 1 57012024 Problem Unspecified epilepsy without mention of intractable ep ilepsy G40.909 Active 33239416 Problem Hyperlipidemia, unspecified E78.5 Ac tive 80357089 Problem Hypertension I10 Active 7640900 3 Problem Esophageal reflux K21.9 Active 23 1599320 Problem Rheumatoid arthritis M06.9 Active 21943958 Problem Cough R05 Active 60730438 Problem Acquired hypothyroidism E03.9 Active 499372187 Problem Unspecified open-angle glaucoma, stage unspecified H40.10X0 Feb, Active 62476794 Problem Presbyopia H52.4 Active 17726923 Problem Insomnia G47.00 Active 898644153 Problem Arthralgia M25.50 Active 18992124 Problem Thyroid nodule E04.1 Active 48437 5005 Problem Anxiety disorder, unspecified F41.9 Active 988449635 Problem Chronic tension-type headache, intractable G44.221 Active 186386000 Problem Neuropathy G62.9 Active 448937285 Problem Goiter E04.9 Active 3474762 Problem Multinodular goiter E04.2 Active 669429182 Problem Carpal tunnel syndrome of left wrist G56.02 Active 506477609196965 Problem Chronic obstructive pulmonary disease, unspecified COPD ty pe J44.9 Active 73088075 Problem BMI 40.0-44.9, adult Z68.41 Active 228242628 Problem Seasonal allergic rhinitis due to pollen J30.1 Active 01248926 Problem Depression F32.9 Active 28872008 Problem Essential hypertension I10 Active 11018128 Problem Depressive disorder F32.9 Active 27804203 Problem Right-sided low back pain without sciatica M54.5 Active 308531270 Problem Reactive airway disease with out complication, unspecified asthma severity, unspecified whether persistent J45.909 Active 880229315213 Problem Urge incontinence of urine N39.41 Act chen 98016727 Problem Abnormal laboratory test R89.9 Activ e 438351371 Problem COPD with exacerbation J44.1 Active 130844539 ALLERGIES No Information ENCOUNTERS Encounter Location Date Diagnosis [place] [address] [address] Feb, [place] [address] [address] Feb, [place] [address] [address] Feb, [facility] [place] [address] [address] Jan, Bronchitis J40 [place] [address] [address] October, Acquired hypothyroidism E03. 9 [place] [address] [address] October, Acute gastritis without hemo rrhage, unspecified gastritis type K29.00 ; Epigastric pain R10.13 ; Essential hypertension I10 ; Screening for colon cancer Z12.11 and BMI 40.0-44.9, adult Z68.41 [place] [address] [address] October, [facility] [place] [address] [address] October, Chest pain R07.9 and Morbid obesity E66.01 [facility] [place] [address] [address] Sep, Generalized abdominal pain R 10.84 ; Morbid obesity E66.01 ; Non-intractable vomiting with nausea, unspecified vomiting type R11.2 and Seasonal allergic rhinitis due to pollen J30.1 [facility] [address] [facility] [id number] [address] [place] [address] Jul, COPD with exacerbation J44.1 ; Viral upper respiratory tract infection J06.9 and Morbid obesity E66.01 [facility] [address] [facility] [id number] [address] [place] [address] Jun, Viral upper respiratory trac t infection J06.9 [facility] [address] [facility] [id number] [address] [place] [address] Apr, Abnormal laboratory test R89 .9 [place] [address] [place] [id number] [address] [place] [address] Apr, Abnormal laboratory test R89 .9 [place] [address] [place] [id number] [address] [place] [address] Apr, Abnormal laboratory test R89 .9 [facility] [id number] [place] [address] Apr, [facility] [address] [place] [id number] [address] [place] [address] Apr, [place] [address] [place] [id number] [address] [place] [address] Apr, Nonintractable episodic head ache, unspecified headache type R51 ; Urge incontinence of urine N39.41 ; BMI 40.0-44.9, adult Z68.41 ; Myalgia M79.10 and Acute cystitis without hematuria N30.00 [facility] [address] [place] [id number] [address] [place] [address] 31 Mar, 2018 Nasal congestion R09.81 ; Lo w back pain M54.5 ; Reactive airway disease without complication, unspecified asthma severity, unspecified whether persistent J45.909 ; Other chronic pain G89.29 ; Acute cystitis with hematuria N30.01 and BMI 40.0-44.9, adult Z68.41 [place] [address] [address] Mar, Acute cystitis with hematuri a N30.01 [facility] [address] [address] Mar, BMI 40.0-44.9, adult Z68.41 ; Acute cystitis with hematuria N30.01 ; Acute bilateral low back pain without sciatica M54.5 and Nausea R11.[address] [address] Mar, Hypertension I10 ; Acquired hypothyroidism E03.9 ; Esophageal reflux K21.9 ; Chronic obstructive pulmonary disease, unspecified COPD type J44.9 and BMI 40.0-44.9, adult Z68.[address] [address] Mar, Hypertension I10 [address] [address] Nov, Hyperlipidemia, unspecified E78.[address] [address] October, Chest pain, unspecified type R07.9 and Acquired hypothyroidism E03.[address] [address] October, Chest pain, unspecified type R07.9 ; Family history of coronary artery disease Z82.49 ; Carpal tunnel syndrome of left wrist G56.02 ; Hypertension I10 ; Esophageal reflux K21.9 ; Arthralgia M25.50 ; Acquired hypothyroidism E03.9 ; Cough R05 ; Nausea R11.0 ; Weight gain R63.5 and BMI 45.0-49.9, adult Z68.[address] [address] Jun, Acquired hypothyroidism E03. 9 and Cough R05 [address] [address] May, [place] [address] [place] [address] Feb, Tarsal tunnel syndrome of timi th lower extremities G57.53 and Neuropathy G62.9 [place] [address] [place] [id number] [address] [place] [address] Dec, Pleuritis R09.1 [place] [address] [place] [id number] [address] [place] [address] Nov, [place] [address] [address] October, Arthralgia, unspecified join t M25.50 and Allergy, initial encounter T78.40XA [place] [address] [place] [id number] [address] [place] [address] October, [place] [address] [address] October, Acute recurrent maxillary si nusitis J01.01 and Arthralgia M25.50 [place] [address] [place] [id number] [place] [address] Sep, Pharyngitis due to other org anism J02.8 [place] [address] [place] [id number] [address] [place] [address] Aug, Acute nasopharyngitis J00 [place] [address] [place] [id number] [place] [address] Aug, Multinodular goiter E04.2 [place] [address] [place] [address] Aug, Thyroid nodule E04.1 [place] [address] [place] [id number] [address] [place] [address] Jul, Tarsal tunnel syndrome of timi th lower extremities G57.53 [place] [address] [place] [id number] [place] [address] Jun, Pneumonia due to infectious organism, unspecified laterality, unspecified part of lung J18.9 [place] [address] [address] Jun, Bronchospasm with bronchitis , acute J20.9 [place] [address] [address] May, Acute non-recurrent frontal sinusitis J01.10 [place] [address] [address] May, Flat foot [pes planus] (acqu ired), left foot M21.42 ; Flat foot [pes planus] (acquired), right foot M21.41 and Neuropathy G62.9 [place] [address] [address] Apr, Chronic tension-type headach e, intractable G44.221 ; Right lower quadrant abdominal pain R10.31 ; Cervicalgia M54.2 ; Acute gastritis without hemorrhage, unspecified gastritis type K29.00 and Hypertension I10 [place] [address] [address] Mar, Depression F32.9 and Anxiety disorder, unspecified F41.9 [place] [address] [address] Feb, Depressive disorder F32.9 an d Anxiety disorder, unspecified F41.9 [place] [address] [address] Jan, Dysuria R30.0 ; Lower abdomi nal pain R10.30 ; Acute bilateral low back pain without sciatica M54.5 ; Nausea and vomiting, unspecified intactability, vomiting of unspecified type R11.2 ; Pain in right foot M79.671 and Pain of left foot M79.672 [place] [address] [address] Dec, Urinary tract infection, sit e not specified N39.0 [facility] [address] [id number] [address] [place] [address] Dec, [facility] [address] [facility] [id number] [address] [place] [address] Nov, [facility] [address] [facility] [id number] [address] [place] [address] Nov, Dysuria R30.0 [facility] [address] [id number] [address] [place] [address] Nov, Dysuria R30.0 and Acute cyst itis with hematuria N30.01 [facility] [address] [facility] [id number] [address] [place] [address] October, Nausea R11.0 [facility] [address] [facility] [id number] [address] [place] [address] October, Thyroid nodule E04.1 ; Carpa l tunnel syndrome, left upper limb G56.02 ; Carpal tunnel syndrome, right upper limb G56.01 and Constipation, unspecified constipation type K59.00 [facility] [address] [facility] [id number] [address] [place] [address] October, [facility] [address] [facility] [id number] [address] [place] [address] October, Thyroid nodule E04.1 [facility] [address] [facility] [id number] [address] [place] [address] October, Cold thyroid nodule E04.1 [facility] [address] [facility] [id number] [address] [place] [address] October, [facility] [address] [facility] [id number] [address] [place] [address] Sep, Thyroid nodule E04.1 [facility] [address] [facility] [id number] [address] [place] [address] Sep, Thyroid nodule E04.1 [facility] [address] [facility] [id number] [address] [place] [address] Sep, Thyroid nodule E04.1 ; Hyper tension I10 ; Esophageal reflux K21.9 and Hyperlipidemia, unspecified E78.5 [place] [address] [place] [id number] [place] [address] Aug, Other chronic pain G89.29 ; Sinusitis J32.9 and Hypertension I10 [place] [address] [place] [id number] [place] [address] Jul, [place] [address] [address] 15 Jul, 2015 [place] [address] [address] 10 Jul, 2015 Insomnia G47.00 and Arthralg ia M25.50 [place] [address] [address] Jul, Depressive disorder F32.9 an d Anxiety disorder, unspecified F41.9 [place] [address] [address] May, Right-sided low back pain wi thout sciatica M54.5 and Depression F32.9 [place] [address] [place] [id number] [place] [address] Apr, Hematuria R31.9 [place] [address] [address] Mar, Other chronic pain G89.29 [place] [address] [place] [id number] [place] [address] Mar, Other chronic pain G89.29 [place] [address] [place] [id number] [place] [address] Feb, [place] [address] [place] [id number] [place] [address] Feb, Other chronic pain 338.29 ; Dysuria 788.1 ; UTI (urinary tract infection) 599.0 ; Insomnia 780.52 ; Hot flashes 627.2 and Hypertension 401.9 [facility] [address] [id number] [address] [place] [address] Feb, Dysuria 788.1 [facility] [address] [facility] [id number] [address] [place] [address] Feb, [facility] [address] [id number] [address] [place] [address] Jan, [facility] [address] [id number] [address] [place] [address] Jan, [facility] [address] [facility] [id number] [address] [place] [address] Jan, Fibromyalgia 729.1 ; Hyperte nsion 401.9 ; Dysthymia 300.4 and Hot flashes 627.2 [facility] [address] [id number] [address] [place] [address] Dec, [facility] [address] [id number] [address] [place] [address] Dec, [facility] [address] [facility] [id number] [address] [place] [address] Dec, [facility] [address] [facility] [id number] [address] [place] [address] Nov, Other chronic pain 338.29 [facility] [address] [id number] [address] [place] [address] October, [facility] [address] [id number] [address] [place] [address] October, [facility] [address] [facility] [id number] [address] [place] [address] Sep, [facility] [address] [facility] [id number] [address] [place] [address] Sep, [facility] [address] [id number] [facility] [place] [address] Aug, [facility] [address] [id number] [address] [place] [address], [place] [address] Aug, [facility] [address] [id number] [address] [place] [address], [place] [address] Aug, [facility] [address] [id number] [address] [place] [address], [place] [address] Aug, [facility] [address] [id number] [address] [place] [address], [place] [address] Aug, [facility] [address] [id number] [address] [place] [address], [place] [address] Aug, [facility] [address] [id number] [address] [place] [address], [place] [address] Aug, [facility] [address] [id number] [address] [place] [address], [place] [address] Aug, [facility] [address] [id number] [address] [place] [address], [place] [address] Aug, [facility] [address] [id number] [address] [place] [address], [place] [address] Aug, [facility] [address] [id number] [address] [place] [address], [place] [address] Aug, [facility] [address] [id number] [address] [place] [address], [place] [address] Aug, [facility] [address] [id number] [address] [place] [address], [place] [address] Aug, [facility] [address] [id number] [address] [place] [address], [place] [address] Aug, [facility] [address] [id number] [address] [place] [address], [place] [address] Jul, [facility] [address] [id number] [address] [place] [address], [place] [address] Jul, [facility] [address] [id number] [address] [place] [address], [place] [address] Jul, [facility] [address] [id number] [address] [place] [address], [place] [address] Jul, [facility] [address] [id number] [address] [place] [address], [place] [address] Jul, [facility] [address] [id number] [address] [place] [address], [place] [address] Jul, [facility] [address] [id number] [address] [place] [address], [place] [address] Jun, [facility] [address] [id number] [address] [place] [address], [place] [address] Jun, [facility] [address] [id number] [address] [place] [address], [place] [address] Jun, [facility] [address] [id number] [address] [place] [address], [place] [address] Jun, [facility] [address] [id number] [address] [place] [address], [place] [address] May, [facility] [address] [id number] [address] [place] [address], [place] [address] May, [facility] [address] [id number] [address] [place] [address], [place] [address] May, [facility] [address] [id number] [address] [place] [address], [place] [address] May, [facility] [address] [id number] [address] [place] [address], [place] [address] May, [facility] [address] [id number] [address] [place] [address], [place] [address] May, [facility] [address] [id number] [address] [place] [address], [place] [address] May, [facility] [address] [id number] [address] [place] [address], [place] [address] May, [facility] [address] [id number] [address] [place] [address], [place] [address] May, [facility] [address] [id number] [address] [place] [address], [place] [address] May, [facility] [address] [id number] [address] [place] [address], [place] [address] Apr, [facility] [address] [id number] [address] [place] [address], [place] [address] Apr, [facility] [address] [id number] [address] [place] [address], [place] [address] Apr, [facility] [address] [id number] [address] [place] [address], [place] [address] Apr, [facility] [address] [id number] [address] [place] [address], [place] [address] Apr, [facility] [address] [id number] [address] [place] [address], [place] [address] Apr, [facility] [address] [id number] [address] [place] [address], [place] [address] Apr, [facility] [address] [id number] [address] [place] [address], [place] [address] Apr, [facility] [address] [id number] [address] [place] [address], [place] [address] Apr, [facility] [address] [id number] [address] [place] [address], [place] [address] Mar, [facility] [address] [id number] [address] [place] [address], [place] [address] Mar, [facility] [address] [id number] [address] [place] [address], [place] [address] Mar, [facility] [address] [id number] [address] [place] [address], [place] [address] Mar, [facility] [address] [id number] [address] [place] [address], [place] [address] 08 Mar, 2013 [facility] [address] [id number] [address] [place] [address], [place] [address] 08 Mar, 2013 [facility] [address] [id number] [address] [place] [address], [place] [address] 08 Mar, 2013 [facility] [address] [id number] [address] [place] [address], [place] [address] 08 Mar, 2013 [facility] [address] [id number] [address] [place] [address], [place] [address] 30 Feb, 2013 [facility] [address] [id number] [address] [place] [address], [place] [address] 30 Feb, 2013 [facility] [address] [id number] [address] [place] [address], [place] [address] 24 Feb, 2013 [facility] [address] [id number] [address] [place] [address], [place] [address] 24 Feb, 2013 [facility] [address] [id number] [address] [place] [address], [place] [address] 22 Feb, 2013 [facility] [address] [id number] [address] [place] [address], [place] [address] 22 Feb, 2013 [facility] [address] [id number] [address] [place] [address], [place] [address] 10 Feb, 2013 [facility] [address] [id number] [address] [place] [address], [place] [address] 10 Feb, 2013 [facility] [address] [id number] [address] [place] [address], [place] [id number] 03 Sep, 2013 [facility] [address] [id number] [address] [place] [address], [place] [id number] 03 Sep, 2013 [facility] [address] [id number] [address] [place] [address], [place] [id number] 03 Sep, 2013 [facility] [address] [id number] [address] [place] [address], [place] [id number] Feb, [facility] [address] [id number] [facility] [place] [address] Feb, [facility] [address] [id number] [address] [place] [address], [place] [id number] Feb, [facility] [address] [id number] [address] [place] [address], [place] [address] Jan, [facility] [address] [id number] [address] [place] [address], [place] [id number] Jan, [facility] [address] [id number] [address] [place] [address], [place] [id number] Dec, [facility] [address] [id number] [address] [place] [address], [place] [address] Dec, [facility] [address] [id number] [address] [place] [address], [place] [id number] Dec, [facility] [address] [id number] [address] [place] [address], [place] [id number] Dec, [facility] [address] [id number] [address] [place] [address], [place] [id number] Dec, [facility] [address] [id number] [address] [place] [address], [place] [address] Dec, [facility] [address] [id number] [address] [place] [address], [place] [id number] Dec, [facility] [address] [id number] [address] [place] [address], [place] [id number] Dec, [facility] [address] [id number] [address] [place] [address], [place] [address] Dec, [facility] [address] [id number] [address] [place] [address], [place] [id number] Dec, [facility] [address] [id number] [address] [place] [address], [place] [id number] Dec, [facility] [address] [id number] [address] [place] [address], [place] [id number] 14 Dec, 2013 [facility] [address] [id number] [address] [place] [address], [place] [address] Dec, 2013 [facility] [address] [id number] [address] [place] [address], [place] [id number] Dec, 2013 [facility] [address] [id number] [address] [place] [address], [place] [id number] Dec, 2013 [facility] [address] [id number] [address] [place] [address], [place] [id number] Dec, 2013 [facility] [address] [id number] [address] [place] [address], [place] [id number] Dec, 2013 [facility] [address] [id number] [address] [place] [address], [place] [id number] Dec, 2013 [facility] [address] [id number] [address] [place] [address], [place] [id number] Dec, 2013 [facility] [address] [id number] [address] [place] [address], [place] [id number] Nov, [facility] [address] [id number] [address] [place] [address], [place] [address] Nov, [facility] [address] [id number] [address] [place] [address], [place] [address] Nov, [facility] [address] [id number] [address] [place] [address], [place] [address] Nov, [facility] [address] [id number] [address] [place] [address], [place] [address] Nov, [facility] [address] [id number] [address] [place] [address], [place] [address] Nov, [facility] [address] [id number] [address] [place] [address], [place] [address] Nov, [facility] [address] [id number] [address] [place] [address], [place] [address] Nov, [facility] [address] [id number] [address] [place] [address], [place] [address] Nov, [facility] [address] [id number] [address] [place] [address], [place] [address] October, [facility] [address] [id number] [address] [place] [address], [place] [address] October, [facility] [address] [id number] [address] [place] [address], [place] [address] October, [facility] [address] [id number] [address] [place] [address], [place] [address] October, [facility] [address] [id number] [address] [place] [address], [place] [address] October, [facility] [address] [id number] [address] [place] [address], [place] [address] October, [facility] [address] [id number] [address] [place] [address], [place] [address] October, [facility] [address] [id number] [address] [place] [address], [place] [address] October, [facility] [address] [id number] [address] [place] [address], [place] [address] Sep, [facility] [address] [id number] [address] [place] [address], [place] [address] Sep, [facility] [address] [id number] [address] [place] [address], [place] [address] Sep, [facility] [address] [id number] [address] [place] [address], [place] [address] Sep, [facility] [address] [id number] [address] [place] [address], [place] [address] Sep, [facility] [address] [id number] [address] [place] [address], [place] [address] Sep, [facility] [address] [id number] [address] [place] [address], [place] [address] Sep, [facility] [address] [id number] [address] [place] [address], [place] [address] Aug, [facility] [address] [id number] [address] [place] [address], [place] [address] Aug, [facility] [address] [id number] [address] [place] [address], [place] [address] Aug, [facility] [address] [id number] [address] [place] [address], [place] [address] Aug, [facility] [address] [id number] [address] [place] [address], [place] [address] Aug, [facility] [address] [id number] [address] [place] [address], [place] [address] Aug, [facility] [address] [id number] [address] [place] [address], [place] [address] Jul, [facility] [address] [id number] [address] [place] [address], [place] [address] Jul, [facility] [address] [id number] [address] [place] [address], [place] [address] Jul, [facility] [address] [id number] [address] [place] [address], [place] [address] Jul, [facility] [address] [id number] [address] [place] [address], [place] [address] Jul, [facility] [address] [id number] [address] [place] [address], [place] [address] Jul, [facility] [address] [id number] [address] [place] [address], [place] [address] Jun, [facility] [address] [id number] [address] [place] [address], [place] [address] Jun, [facility] [address] [id number] [address] [place] [address], [place] [address] Jun, [facility] [address] [id number] [address] [place] [address], [place] [address] Jun, [facility] [address] [id number] [address] [place] [address], [place] [address] Jun, [facility] [address] [id number] [address] [place] [address], [place] [address] Jun, [facility] [address] [id number] [address] [place] [address], [place] [address] Jun, [facility] [address] [id number] [address] [place] [address], [place] [address] Jun, [facility] [address] [id number] [address] [place] [address], [place] [address] Jun, [facility] [address] [id number] [address] [place] [address], [place] [address] Jun, [facility] [address] [id number] [address] [place] [address], [place] [address] Jun, [facility] [address] [id number] [address] [place] [address], [place] [address] Jun, [facility] [address] [id number] [address] [place] [address], [place] [address] Jun, [facility] [address] [id number] [address] [place] [address], [place] [address] May, [facility] [address] [id number] [address] [place] [address], [place] [address] May, [facility] [address] [id number] [address] [place] [address], [place] [address] May, [facility] [address] [id number] [address] [place] [address], [place] [address] May, [facility] [address] [id number] [address] [place] [address], [place] [address] May, [facility] [address] [id number] [address] [place] [address], [place] [address] 14 May, 2013 [facility] [address] [id number] [address] [place] [address], [place] [address] 14 May, 2013 [facility] [address] [id number] [address] [place] [address], [place] [address] 12 May, 2013 [facility] [address] [id number] [address] [place] [address], [place] [address] 12 May, 2013 [facility] [address] [id number] [address] [place] [address], [place] [address] 11 May, 2013 [facility] [address] [id number] [address] [place] [address], [place] [address] 11 May, 2013 [facility] [address] [id number] [address] [place] [address], [place] [address] 10 May, 2013 [facility] [address] [id number] [address] [place] [address], [place] [address] 10 May, 2013 [facility] [address] [id number] [address] [place] [address], [place] [address] May, [facility] [address] [id number] [address] [place] [address], [place] [address] 09 May, 2013 [facility] [address] [id number] [address] [place] [address], [place] [address] 08 May, 2013 [facility] [address] [id number] [address] [place] [address], [place] [address] 07 May, 2013 [facility] [address] [id number] [address] [place] [address], [place] [address] 06 May, 2013 [facility] [address] [id number] [address] [place] [address], [place] [address] May, [facility] [address] [id number] [address] [place] [address], [place] [address] 06 May, 2013 [facility] [address] [id number] [address] [place] [address], [place] [address] May, [facility] [address] [id number] [address] [place] [address], [place] [address] Apr, [facility] [address] [id number] [address] [place] [address], [place] [address] Apr, [facility] [address] [id number] [address] [place] [address], [place] [address] Apr, [facility] [address] [id number] [address] [place] [address], [place] [address] Apr, [facility] [address] [id number] [address] [place] [address], [place] [address] Mar, [facility] [address] [id number] [address] [place] [address], [place] [address] 23 Feb, 2013 [facility] [address] [id number] [address] [place] [address], [place] [address] 16 Feb, 2013 [facility] [address] [id number] [address] [place] [address], [place] [address] 13 Feb, 2013 [facility] [address] [id number] [address] [place] [address], [place] [address] 10 Feb, 2013 [facility] [address] [id number] [address] [place] [address], [place] [address] 09 Feb, 2013 [facility] [address] [id number] [address] [place] [address], [place] [address] 09 Feb, 2013 [facility] [address] [id number] [address] [place] [address], [place] [address] Jan, [facility] [address] [id number] [address] [place] [address], [place] [address] Jan, [facility] [address] [id number] [address] [place] [address], [place] [address] Jan, [facility] [address] [id number] [address] [place] [address], [place] [address] Dec, [facility] [address] [id number] [address] [place] [address], [place] [address] Dec, [facility] [address] [id number] [address] [place] [address], [place] [address] 17 Dec, 2012 [facility] [address] [id number] [address] [place] [address], [place] [address] 15 Dec, 2012 [facility] [address] [id number] [address] [place] [address], [place] [address] Dec, [facility] [address] [id number] [address] [place] [address], [place] [address] Nov, [facility] [address] [id number] [address] [place] [address], [place] [address] Nov, [facility] [address] [id number] [address] [place] [address], [place] [address] Nov, [facility] [address] [id number] [address] [place] [address], [place] [address] Nov, [facility] [address] [id number] [address] [place] [address], [place] [address] Nov, [facility] [address] [id number] [address] [place] [address], [place] [address] Nov, [facility] [address] [id number] [address] [place] [address], [place] [address] Nov, [facility] [address] [id number] [address] [place] [address], [place] [address] Nov, [facility] [address] [id number] [address] [place] [address], [place] [address] 05 Nov, 2012 [facility] [address] [id number] [address] [place] [address], [place] [address] Nov, [facility] [address] [id number] [address] [place] [address], [place] [address] October, [facility] [address] [id number] [address] [place] [address], [place] [address] October, [facility] [address] [id number] [address] [place] [address] Sep, [facility] [address] [id number] [address] [place] [address], [place] [address] Sep, [facility] [address] [id number] [address] [place] [address], [place] [address] Sep, [facility] [address] [id number] [address] [place] [address], [place] [address] Sep, [facility] [address] [id number] [address] [place] [address], [place] [address] Sep, [facility] [address] [id number] [address] [place] [address], [place] [address] Aug, [facility] [address] [id number] [address] [place] [address], [place] [address] Aug, [facility] [address] [id number] [address] [place] [address], [place] [address] Jul, [facility] [address] [id number] [address] [place] [address], [place] [address] Jul, [facility] [address] [id number] [address] [place] [address], [place] [address] Jun, [facility] [address] [id number] [address] [place] [address], [place] [address] Jun, [facility] [address] [id number] [address] [place] [address], [place] [address] May, [facility] [address] [id number] [address] [place] [address], [place] [address] May, [facility] [address] [id number] [address] [place] [address], [place] [address] May, [facility] [address] [id number] [address] [place] [address], [place] [address] May, [facility] [address] [id number] [address] [place] [address], [place] [address] Apr, [facility] [address] [id number] [address] [place] [address], [place] [address] 27 Apr, 2012 [facility] [address] [id number] [address] [place] [address], [place] [address] 23 Apr, 2012 [facility] [address] [id number] [address] [place] [address], [place] [address] Apr, [facility] [address] [id number] [address] [place] [address], [place] [address] Apr, [facility] [address] [id number] [address] [place] [address], [place] [address] Apr, [facility] [address] [id number] [address] [place] [address], [place] [address] Apr, [facility] [address] [id number] [address] [place] [address], [place] [address] Apr, [facility] [address] [id number] [address] [place] [address], [place] [address] Apr, [facility] [address] [id number] [address] [place] [address], [place] [address] 15 Mar, 2012 [facility] [address] [id number] [address] [place] [address], [place] [address] Mar, [facility] [address] [id number] [address] [place] [address], [place] [address] 05 Feb, 2012 [facility] [address] [id number] [address] [place] [address], [place] [address] Jan, [facility] [address] [id number] [address] [place] [address], [place] [address] Jan, [facility] [address] [id number] [address] [place] [address], [place] [address] Dec, [facility] [address] [id number] [address] [place] [address], [place] [address] Nov, [facility] [address] [id number] [address] [place] [address] [address] Nov, [facility] [address] [id number] [address] [place] [address], [place] [address] October, [facility] [address] [id number] [address] [place] [address], [place] [address] October, [facility] [address] [id number] [address] [place] [address], [place] [address] Sep, [facility] [address] [id number] [address] [place] [address], [place] [address] Sep, [facility] [address] [id number] [address] [place] [address], [place] [address] May, [facility] [address] [id number] [address] [place] [address], [place] [address] Apr, [facility] [address] [id number] [address] [place] [address], [place] [address] Apr, [facility] [address] [id number] [address] [place] [address], [place] [address] Apr, [facility] [address] [id number] [address] [place] [address], [place] [address] Apr, [facility] [address] [id number] [address] [place] [address], [place] [address] 15 Apr, 2011 [facility] [address] [id number] [address] [place] [address], [place] [address] Apr, [facility] [address] [id number] [address] [place] [address] Apr, [facility] [address] [id number] [address] [place] [address], [place] [address] Apr, [facility] [address] [id number] [address] [place] [address], [place] [address] Mar, [facility] [address] [id number] [address] [place] [address], [place] [address] Mar, [facility] [address] [id number] [address] [place] [id number] Mar, [facility] [address] [facility] [id number] [address] [place] [address] Mar, [facility] [address] [facility] [id number] [address] [place] [id number] Mar, [facility] [address] [facility] [id number] [address] [place] [id number] Mar, IMMUNIZATIONS No Known Immunizations SOCIAL HISTORY [...] Stomach surgeryx3 Hospitalization History Mental floor at [facility]
--- OUTSIDE RECORDS SUMMARY | 2019-12-24 19:54 | XMS REPORT ---
Author Author Trey Quesada Organization [facility] Address [address] [place] [address] Care Team Providers Care Equal Employment Opportunity Officer Name Role Phone JAILENE Quesada Unavailable PROBLEMS Type Condition ICD9-CM Code VHZ82-EM Code Onset Dates Condition S tatus SNOMED Code Problem Nondependent 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 Ac tive 835973285 Problem Other chronic pain G89.29 Active 1 73431254 Problem Unspecified epilepsy without mention of intractable ep ilepsy G40.909 Active 98407281 Problem Hyperlipidemia, unspecified E78.5 Ac tive 29076705 Problem Hypertension I10 Active 2692909 3 Problem Esophageal reflux K21.9 Active 23 9150568 Problem Rheumatoid arthritis M06.9 Active 46469467 Problem Cough R05 Active 31017305 Problem Acquired hypothyroidism E03.9 Active 054707615 Problem Unspecified open-angle glaucoma, stage unspecified H40.10X0 Feb, Active 37669860 Problem Presbyopia H52.4 Active 73483236 Problem Insomnia G47.00 Active 618433751 Problem Arthralgia M25.50 Active 22817088 Problem Thyroid nodule E04.1 Active 55708 5005 Problem Anxiety disorder, unspecified F41.9 Active 598379230 Problem Chronic tension-type headache, intractable G44.221 Active 656003972 Problem Neuropathy G62.9 Active 721743373 Problem Goiter E04.9 Active 9318225 Problem Multinodular goiter E04.2 Active 054497960 Problem Carpal tunnel syndrome of left wrist G56.02 Active 330056475527005 Problem Chronic obstructive pulmonary disease, unspecified COPD ty pe J44.9 Active 28138416 Problem BMI 40.0-44.9, adult Z68.41 Active 503191396 Problem Seasonal allergic rhinitis due to pollen J30.1 Active 28124883 Problem Depression F32.9 Active 52346809 Problem Essential hypertension I10 Active 40020339 Problem Depressive disorder F32.9 Active 38900688 Problem Right-sided low back pain without sciatica M54.5 Active 816038948 Problem Reactive airway disease with out complication, unspecified asthma severity, unspecified whether persistent J45.909 Active 849668989638 Problem Urge incontinence of urine N39.41 Act chen 09549238 Problem Abnormal laboratory test R89.9 Activ e 490419074 Problem COPD with exacerbation J44.1 Active 832904005 ALLERGIES No Information ENCOUNTERS Encounter Location Date Diagnosis [place] [id number] [address] Feb, [place] [address] [address] Feb, [place] [address] [address] Feb, Mass of right side of neck R 22.1 and Multinodular goiter E04.2 [facility] [place] [address] [address] Jan, Bronchitis J40 [place] [address] [address] October, Acquired hypothyroidism E03. 9 [place] [address] [address] October, Acute gastritis without hemo rrhage, unspecified gastritis type K29.00 ; Epigastric pain R10.13 ; Essential hypertension I10 ; Screening for colon cancer Z12.11 and BMI 40.0-44.9, adult Z68.41 [place] [address] [address] October, [facility] [place] [address] [address] October, Chest pain R07.9 and Morbid obesity E66.01 [facility] [place] [address] [address] Sep, Generalized abdominal pain R 10.84 ; Morbid obesity E66.01 ; Non-intractable vomiting with nausea, unspecified vomiting type R11.2 and Seasonal allergic rhinitis due to pollen J30.1 [facility] [address] [place] [id number] [place] [address] Jul, COPD with exacerbation J44.1 ; Viral upper respiratory tract infection J06.9 and Morbid obesity E66.01 [facility] [address] [place] [address] Jun, Viral upper respiratory trac t infection J06.9 [place] [address] [address] [facility] [id number] [address] [place] [address] Apr, Abnormal laboratory test R89 .9 [place] [address] [address] [place] [id number] [place] [address] Apr, Abnormal laboratory test R89 .9 [place] [address] [place] [id number] [place] [address] Apr, Abnormal laboratory test R89 .9 [place] [address] [address] [place] [id number] [place] [address] Apr, [place] [address] [address] [place] [id number] [place] [address] Apr, [place] [address] [address] Apr, Nonintractable episodic head ache, unspecified headache type R51 ; Urge incontinence of urine N39.41 ; BMI 40.0-44.9, adult Z68.41 ; Myalgia M79.10 and Acute cystitis without hematuria N30.00 [place] [address] [address] [place] [id number] [place] [address] Mar, Nasal congestion R09.81 ; Lo w back pain M54.5 ; Reactive airway disease without complication, unspecified asthma severity, unspecified whether persistent J45.909 ; Other chronic pain G89.29 ; Acute cystitis with hematuria N30.01 and BMI 40.0-44.9, adult Z68.41 [facility] [address] [address] Mar, Acute cystitis with hematuri a N30.01 [facility] [address] [address] Mar, BMI 40.0-44.9, adult Z68.41 ; Acute cystitis with hematuria N30.01 ; Acute bilateral low back pain without sciatica M54.5 and Nausea R11.0 [place] [address] [address] Mar, Hypertension I10 ; Acquired hypothyroidism E03.9 ; Esophageal reflux K21.9 ; Chronic obstructive pulmonary disease, unspecified COPD type J44.9 and BMI 40.0-44.9, adult Z68.41 [place] [address] [address] Mar, Hypertension I10 [place] [address] [address] Nov, Hyperlipidemia, unspecified E78.[address] [address] October, Chest pain, unspecified type R07.9 and Acquired hypothyroidism E03.9 [place] [address] [address] October, Chest pain, unspecified type R07.9 ; Family history of coronary artery disease Z82.49 ; Carpal tunnel syndrome of left wrist G56.02 ; Hypertension I10 ; Esophageal reflux K21.9 ; Arthralgia M25.50 ; Acquired hypothyroidism E03.9 ; Cough R05 ; Nausea R11.0 ; Weight gain R63.5 and BMI 45.0-49.9, adult Z68.42 [place] [address] [address] Jun, Acquired hypothyroidism E03. 9 and Cough R05 [place] [address] [place] [id number] [place] [address] May, [place] [address] [address] Feb, Tarsal tunnel syndrome of timi th lower extremities G57.53 and Neuropathy G62.9 [place] [address] [address] Dec, Pleuritis R09.1 [place] [address] [address] Nov, [place] [address] [address] October, Arthralgia, unspecified join t M25.50 and Allergy, initial encounter T78.40XA [place] [address] [address] October, [place] [address] [address] October, Acute recurrent maxillary si nusitis J01.01 and Arthralgia M25.50 [place] [address] [address] Sep, Pharyngitis due to other org anism J02.8 [place] [address] [address] Aug, Acute nasopharyngitis J00 [place] [address] [address] Aug, Multinodular goiter E04.2 [place] [address] [address] Aug, Thyroid nodule E04.1 [place] [address] [address] [place] [id number] [place] [address] Jul, Tarsal tunnel syndrome of timi th lower extremities G57.53 [place] [address] [address] Jun, Pneumonia due to infectious organism, unspecified laterality, unspecified part of lung J18.9 [place] [address] [address] Jun, Bronchospasm with bronchitis , acute J20.9 [place] [address] [address] May, Acute non-recurrent frontal sinusitis J01.10 [place] [address] [address] May, Flat foot [pes planus] (acqu ired), left foot M21.42 ; Flat foot [pes planus] (acquired), right foot M21.41 and Neuropathy G62.[address] [address] Apr, Chronic tension-type headach e, intractable G44.221 ; Right lower quadrant abdominal pain R10.31 ; Cervicalgia M54.2 ; Acute gastritis without hemorrhage, unspecified gastritis type K29.00 and Hypertension I10 [address] [address] Mar, Depression F32.9 and Anxiety disorder, unspecified F41.9 [place] [address] [address] Feb, Depressive disorder F32.9 an d Anxiety disorder, unspecified F41.[address] [address] Jan, Dysuria R30.0 ; Lower abdomi nal pain R10.30 ; Acute bilateral low back pain without sciatica M54.5 ; Nausea and vomiting, unspecified intactability, vomiting of unspecified type R11.2 ; Pain in right foot M79.671 and Pain of left foot M79.672 [place] [address] [place] [address] Dec, Urinary tract infection, sit e not specified N39.0 [facility] [address] [facility] [id number] [address] [place] [address] Dec, [facility] [address] [facility] [id number] [address] [place] [address] Nov, [facility] [address] [facility] [id number] [address] [place] [address] Nov, Dysuria R30.0 [facility] [address] [facility] [id number] [address] [place] [address] Nov, Dysuria R30.0 and Acute cyst itis with hematuria N30.01 [facility] [address] [facility] [id number] [address] [place] [address] October, Nausea R11.0 [facility] [address] [facility] [id number] [address] [place] [address] October, Thyroid nodule E04.1 ; Carpa l tunnel syndrome, left upper limb G56.02 ; Carpal tunnel syndrome, right upper limb G56.01 and Constipation, unspecified constipation type K59.00 [facility] [address] [facility] [id number] [address] [place] [address] October, [facility] [address] [facility] [id number] [address] [place] [address] October, Thyroid nodule E04.1 [facility] [address] [facility] [id number] [address] [place] [address] October, Cold thyroid nodule E04.1 [facility] [address] [facility] [id number] [address] [place] [address] October, [facility] [address] [facility] [id number] [address] [place] [address] Sep, Thyroid nodule E04.1 [facility] [address] [facility] [id number] [address] [place] [address] Sep, Thyroid nodule E04.1 [place] [id number] [place] [address] Sep, Thyroid nodule E04.1 ; Hyper tension I10 ; Esophageal reflux K21.9 and Hyperlipidemia, unspecified E78.5 [place] [address] [address] [place] [id number] [address] [place] [address] Aug, Other chronic pain G89.29 ; Sinusitis J32.9 and Hypertension I10 [place] [address] [address] [facility] [id number] [address] [place] [address] Jul, [place] [address] [address] 15 Jul, 2015 [place] [address] [address] 10 Jul, 2015 Insomnia G47.00 and Arthralg ia M25.50 [place] [address] [address] [place] [id number] [place] [address] 10 Jul, 2015 Depressive disorder F32.9 an d Anxiety disorder, unspecified F41.9 [place] [address] [address] [place] [id number] [place] [address] May, Right-sided low back pain wi thout sciatica M54.5 and Depression F32.9 [place] [address] [place] [address] Apr, Hematuria R31.9 [place] [address] [address] [place] [id number] [address] [place] [address] Mar, Other chronic pain G89.29 [place] [address] [address] [place] [id number] [place] [address] Mar, Other chronic pain G89.29 [place] [address] [address] [place] [id number] [address] [place] [address] Feb, [place] [address] [address] [place] [address] Feb, Other chronic pain 338.29 ; Dysuria 788.1 ; UTI (urinary tract infection) 599.0 ; Insomnia 780.52 ; Hot flashes 627.2 and Hypertension 401.9 [facility] [address] [id number] [address] [place] [address] Feb, Dysuria 788.1 [facility] [address] [id number] [address] [place] [address] Feb, [facility] [address] [facility] [id number] [address] [place] [address] Jan, [facility] [address] [facility] [id number] [address] [place] [address] Jan, [facility] [address] [place] [id number] [address] [place] [address] Jan, Fibromyalgia 729.1 ; Hyperte nsion 401.9 ; Dysthymia 300.4 and Hot flashes 627.2 [facility] [address] [facility] [id number] [address] [place] [address] Dec, [facility] [address] [facility] [id number] [address] [place] [address] Dec, [facility] [address] [facility] [id number] [address] [place] [address] Dec, [facility] [address] [facility] [id number] [address] [place] [address] Nov, Other chronic pain 338.29 [facility] [address] [facility] [id number] [address] [place] [address] October, [facility] [address] [facility] [id number] [address] [place] [address] October, [facility] [address] [facility] [id number] [address] [place] [address] Sep, [facility] [address] [id number] [address] [place] [address] [place] [address] 13 Sep, 2014 [facility] [address] [id number] [address] [place] [address], [place] [address] Aug, [facility] [address] [id number] [address] [place] [address], [place] [address] Aug, [facility] [address] [id number] [address] [place] [address], [place] [address] Aug, [facility] [address] [id number] [address] [place] [address], [place] [address] Aug, [facility] [address] [id number] [address] [place] [address], [place] [address] Aug, [facility] [address] [id number] [address] [place] [address], [place] [address] Aug, [facility] [address] [id number] [address] [place] [address], [place] [address] Aug, [facility] [address] [id number] [address] [place] [address], [place] [address] Aug, [facility] [address] [id number] [address] [place] [address], [place] [address] Aug, [facility] [address] [id number] [address] [place] [address], [place] [address] Aug, [facility] [address] [id number] [address] [place] [address], [place] [address] Aug, [facility] [address] [id number] [address] [place] [address], [place] [address] Aug, [facility] [address] [id number] [address] [place] [address], [place] [address] Aug, [facility] [address] [id number] [address] [place] [address], [place] [address] Aug, [facility] [address] [id number] [address] [place] [address], [place] [address] Jul, [facility] [address] [id number] [address] [place] [address], [place] [address] Jul, [facility] [address] [id number] [address] [place] [address], [place] [address] Jul, [facility] [address] [id number] [address] [place] [address], [place] [address] Jul, [facility] [address] [id number] [address] [place] [address], [place] [address] Jul, [facility] [address] [id number] [address] [place] [address], [place] [address] Jul, [facility] [address] [id number] [address] [place] [address], [place] [address] Jun, [facility] [address] [id number] [address] [place] [address], [place] [address] Jun, [facility] [address] [id number] [address] [place] [address], [place] [address] Jun, [facility] [address] [id number] [address] [place] [address], [place] [address] Jun, [facility] [address] [id number] [address] [place] [address], [place] [address] May, [facility] [address] [id number] [address] [place] [address], [place] [address] May, [facility] [address] [id number] [address] [place] [address], [place] [address] May, [facility] [address] [id number] [address] [place] [address], [place] [address] May, [facility] [address] [id number] [address] [place] [address], [place] [address] May, [facility] [address] [id number] [address] [place] [address], [place] [address] May, [facility] [address] [id number] [address] [place] [address], [place] [address] May, [facility] [address] [id number] [address] [place] [address], [place] [address] May, [facility] [address] [id number] [address] [place] [address], [place] [address] May, [facility] [address] [id number] [address] [place] [address], [place] [address] May, [facility] [address] [id number] [address] [place] [address], [place] [address] Apr, [facility] [address] [id number] [address] [place] [address], [place] [address] Apr, [facility] [address] [id number] [address] [place] [address], [place] [address] Apr, [facility] [address] [id number] [address] [place] [address], [place] [address] Apr, [facility] [address] [id number] [address] [place] [address], [place] [address] Apr, [facility] [address] [id number] [address] [place] [address], [place] [address] Apr, [facility] [address] [id number] [address] [place] [address], [place] [address] Apr, [facility] [address] [id number] [address] [place] [address], [place] [address] Apr, [facility] [address] [id number] [address] [place] [address], [place] [address] Apr, [facility] [address] [id number] [address] [place] [address], [place] [address] Mar, [facility] [address] [id number] [address] [place] [address], [place] [address] Mar, [facility] [address] [id number] [address] [place] [address], [place] [address] Mar, [facility] [address] [id number] [address] [place] [address], [place] [address] 28 Mar, 2013 [facility] [address] [id number] [address] [place] [address], [place] [address] 08 Mar, 2014 [facility] [address] [id number] [address] [place] [address], [place] [address] Mar, 2013 [facility] [address] [id number] [address] [place] [address], [place] [address] Mar, 2013 [facility] [address] [id number] [address] [place] [address], [place] [address] Mar, 2013 [facility] [address] [id number] [address] [place] [address], [place] [address] 30 Feb, 2013 [facility] [address] [id number] [address] [place] [address], [place] [address] 30 Feb, 2013 [facility] [address] [id number] [address] [place] [address], [place] [address] 24 Feb, 2013 [facility] [address] [id number] [address] [place] [address], [place] [address] 24 Feb, 2013 [facility] [address] [id number] [address] [place] [address], [place] [address] 22 Feb, 2013 [facility] [address] [id number] [address] [place] [address], [place] [address] 22 Feb, 2013 [facility] [address] [id number] [address] [place] [address], [place] [address] 10 Feb, 2013 [facility] [address] [id number] [address] [place] [address], [place] [address] 10 Sep, 2013 [facility] [address] [id number] [address] [place] [address], [place] [address] 03 Sep, 2013 [facility] [address] [id number] [address] [place] [address], [place] [address] 03 Sep, 2013 [facility] [address] [id number] [address] [place] [address], [place] [address] 03 Sep, 2013 [facility] [address] [id number] [facility] [place] [address] Feb, 2013 [facility] [address] [id number] [facility] [place] [address] Feb, [facility] [address] [id number] [facility] [place] [address] Feb, [facility] [address] [id number] [address] [place] [address], [place] [address] Jan, [facility] [address] [id number] [address] [place] [address], [place] [address] Jan, [facility] [address] [id number] [address] [place] [address], [place] [address] Dec, [facility] [address] [id number] [address] [place] [address], [place] [address] Dec, [facility] [address] [id number] [address] [place] [address], [place] [address] Dec, [facility] [address] [id number] [address] [place] [address], [place] [address] Dec, [facility] [address] [id number] [address] [place] [address], [place] [id number] Dec, [facility] [address] [id number] [address] [place] [address], [place] [address] Dec, [facility] [address] [id number] [address] [place] [address], [place] [address] Dec, [facility] [address] [id number] [address] [place] [address], [place] [address] Dec, [facility] [address] [id number] [address] [place] [address], [place] [address] Dec, [facility] [address] [id number] [address] [place] [address], [place] [address] Dec, [facility] [address] [id number] [address] [place] [address], [place] [address] 14 Dec, 2013 [facility] [address] [id number] [address] [place] [address], [place] [address] 14 Dec, 2013 [facility] [address] [id number] [address] [place] [address], [place] [address] Dec, 2013 [facility] [address] [id number] [address] [place] [address], [place] [address] Dec, 2013 [facility] [address] [id number] [address] [place] [address], [place] [address] Dec, 2013 [facility] [address] [id number] [address] [place] [address], [place] [address] Dec, 2013 [facility] [address] [id number] [address] [place] [address], [place] [address] Dec, 2013 [facility] [address] [id number] [address] [place] [address], [place] [address] Dec, 2013 [facility] [address] [id number] [address] [place] [address], [place] [address] Dec, [facility] [address] [id number] [address] [place] [address], [place] [address] Nov, [facility] [address] [id number] [address] [place] [address], [place] [address] Nov, [facility] [address] [id number] [address] [place] [address], [place] [address] Nov, [facility] [address] [id number] [address] [place] [address], [place] [address] Nov, [facility] [address] [id number] [address] [place] [address], [place] [address] Nov, [facility] [address] [id number] [address] [place] [address], [place] [address] Nov, [facility] [address] [id number] [address] [place] [address], [place] [address] Nov, [facility] [address] [id number] [facility] [place] [address] Nov, [facility] [address] [id number] [address] [place] [address], [place] [address] Nov, [facility] [address] [id number] [address] [place] [address], [place] [address] October, [facility] [address] [id number] [address] [place] [address], [place] [address] October, [facility] [address] [id number] [address] [place] [address], [place] [address] October, [facility] [address] [id number] [address] [place] [address], [place] [address] October, [facility] [address] [id number] [address] [place] [address], [place] [address] October, [facility] [address] [id number] [address] [place] [address], [place] [address] October, [facility] [address] [id number] [address] [place] [address], [place] [address] October, [facility] [address] [id number] [address] [place] [address], [place] [address] October, [facility] [address] [id number] [address] [place] [address], [place] [address] Sep, [facility] [address] [id number] [address] [place] [address], [place] [address] Sep, [facility] [address] [id number] [address] [place] [address], [place] [address] Sep, [facility] [address] [id number] [address] [place] [address], [place] [address] Sep, [facility] [address] [id number] [address] [place] [address], [place] [address] Sep, [facility] [address] [id number] [address] [place] [address], [place] [address] Sep, [facility] [address] [id number] [address] [place] [address], [place] [address] Sep, [facility] [address] [id number] [address] [place] [address], [place] [address] Aug, [facility] [address] [id number] [address] [place] [address], [place] [address] Aug, [facility] [address] [id number] [address] [place] [address], [place] [address] Aug, [facility] [address] [id number] [address] [place] [address], [place] [address] Aug, [facility] [address] [id number] [address] [place] [address], [place] [address] Aug, [facility] [address] [id number] [address] [place] [address], [place] [address] Aug, [facility] [address] [id number] [address] [place] [address], [place] [address] Jul, [facility] [address] [id number] [address] [place] [address], [place] [address] Jul, [facility] [address] [id number] [address] [place] [address], [place] [address] Jul, [facility] [address] [id number] [address] [place] [address], [place] [address] Jul, [facility] [address] [id number] [address] [place] [address], [place] [address] Jul, [facility] [address] [id number] [address] [place] [address], [place] [address] Jul, [facility] [address] [id number] [address] [place] [address], [place] [address] Jun, [facility] [address] [id number] [address] [place] [address], [place] [address] Jun, [facility] [address] [id number] [address] [place] [address], [place] [address] Jun, [facility] [address] [id number] [address] [place] [address], [place] [address] Jun, [facility] [address] [id number] [address] [place] [address], [place] [address] Jun, [facility] [address] [id number] [address] [place] [address], [place] [address] Jun, [facility] [address] [id number] [address] [place] [address], [place] [address] Jun, [facility] [address] [id number] [address] [place] [address], [place] [address] Jun, [facility] [address] [id number] [address] [place] [address], [place] [address] Jun, [facility] [address] [id number] [address] [place] [address], [place] [address] Jun, [facility] [address] [id number] [address] [place] [address], [place] [address] Jun, [facility] [address] [id number] [address] [place] [address], [place] [address] Jun, [facility] [address] [id number] [address] [place] [address], [place] [address] Jun, [facility] [address] [id number] [address] [place] [address], [place] [address] May, [facility] [address] [id number] [address] [place] [address], [place] [address] May, [facility] [address] [id number] [address] [place] [address], [place] [address] May, [facility] [address] [id number] [address] [place] [address], [place] [address] May, [facility] [address] [id number] [address] [place] [address] [address] 26 May, 2013 [facility] [address] [id number] [address] [place] [address], [place] [address] 14 May, 2013 [facility] [address] [id number] [address] [place] [address], [place] [address] 14 May, 2013 [facility] [address] [id number] [address] [place] [address], [place] [address] May, [facility] [address] [id number] [address] [place] [address], [place] [address] May, [facility] [address] [id number] [address] [place] [address], [place] [address] May, [facility] [address] [id number] [address] [place] [address], [place] [address] May, [facility] [address] [id number] [address] [place] [address], [place] [address] May, [facility] [address] [id number] [address] [place] [address], [place] [address] 10 May, 2013 [facility] [address] [id number] [address] [place] [address], [place] [address] May, [facility] [address] [id number] [address] [place] [address], [place] [address] May, [facility] [address] [id number] [address] [place] [address], [place] [address] 08 May, 2013 [facility] [address] [id number] [address] [place] [address], [place] [address] 07 May, 2013 [facility] [address] [id number] [address] [place] [address], [place] [address] 06 May, 2013 [facility] [address] [id number] [address] [place] [address], [place] [address] 06 May, 2013 [facility] [address] [id number] [address] [place] [address], [place] [address] 06 May, 2013 [facility] [address] [id number] [address] [place] [address], [place] [address] May, [facility] [address] [id number] [address] [place] [address], [place] [address] Apr, [facility] [address] [id number] [address] [place] [address], [place] [address] Apr, [facility] [address] [id number] [address] [place] [address], [place] [address] Apr, [facility] [address] [id number] [address] [place] [address], [place] [address] Apr, [facility] [address] [id number] [address] [place] [address], [place] [address] Mar, [facility] [address] [id number] [address] [place] [address], [place] [address] 23 Feb, 2013 [facility] [address] [id number] [address] [place] [address], [place] [address] 16 Feb, 2013 [facility] [address] [id number] [address] [place] [address], [place] [address] 13 Feb, 2013 [facility] [address] [id number] [address] [place] [address], [place] [address] 10 Feb, 2013 [facility] [address] [id number] [address] [place] [address], [place] [address] 09 Feb, 2013 [facility] [address] [id number] [address] [place] [address], [place] [address] 09 Feb, 2013 [facility] [address] [id number] [address] [place] [address], [place] [address] Jan, [facility] [address] [id number] [address] [place] [address], [place] [address] Jan, [facility] [address] [id number] [address] [place] [address], [place] [address] Jan, [facility] [address] [id number] [address] [place] [address], [place] [address] Dec, [facility] [address] [id number] [address] [place] [address], [place] [address] 17 Dec, 2012 [facility] [address] [id number] [address] [place] [address], [place] [address] Dec, [facility] [address] [id number] [address] [place] [address], [place] [address] 15 Dec, 2012 [facility] [address] [id number] [address] [place] [address], [place] [address] Dec, [facility] [address] [id number] [address] [place] [address], [place] [address] Nov, [facility] [address] [id number] [address] [place] [address], [place] [address] Nov, [facility] [address] [id number] [address] [place] [address], [place] [address] Nov, [facility] [address] [id number] [address] [place] [address], [place] [address] Nov, [facility] [address] [id number] [address] [place] [address], [place] [address] Nov, [facility] [address] [id number] [address] [place] [address], [place] [address] 08 Nov, 2012 [facility] [address] [id number] [address] [place] [address], [place] [address] 07 Nov, 2012 [facility] [address] [id number] [address] [place] [address], [place] [address] 06 Nov, 2012 [facility] [address] [id number] [address] [place] [address], [place] [address] 05 Nov, 2012 [facility] [address] [id number] [address] [place] [address], [place] [address] Nov, [facility] [address] [id number] [address] [place] [address], [place] [address] October, [facility] [address] [id number] [address] [place] [address], [place] [address] October, [facility] [address] [id number] [address] [place] [address], [place] [address] Sep, [facility] [address] [id number] [address] [place] [address], [place] [address] Sep, [facility] [address] [id number] [address] [place] [address], [place] [address] Sep, [facility] [address] [id number] [address] [place] [address], [place] [address] Sep, [facility] [address] [id number] [address] [place] [address], [place] [address] Sep, [facility] [address] [id number] [address] [place] [address], [place] [address] Aug, [facility] [address] [id number] [address] [place] [address], [place] [address] Aug, [facility] [address] [id number] [address] [place] [address], [place] [address] Jul, [facility] [address] [id number] [address] [place] [address], [place] [address] Jul, [facility] [address] [id number] [address] [place] [address], [place] [address] Jun, [facility] [address] [id number] [address] [place] [address], [place] [address] Jun, [facility] [address] [id number] [address] [place] [address], [place] [address] May, [facility] [address] [id number] [address] [place] [address], [place] [address] May, [facility] [address] [id number] [address] [place] [address], [place] [address] May, [facility] [address] [id number] [address] [place] [address], [place] [address] May, [facility] [address] [id number] [address] [place] [address], [place] [address] 27 Apr, 2012 [facility] [address] [id number] [address] [place] [address], [place] [address] 27 Apr, 2012 [facility] [address] [id number] [address] [place] [address], [place] [address] Apr, [facility] [address] [id number] [address] [place] [address], [place] [address] Apr, [facility] [address] [id number] [address] [place] [address], [place] [address] Apr, [facility] [address] [id number] [address] [place] [address], [place] [address] Apr, [facility] [address] [id number] [address] [place] [address], [place] [address] 14 Apr, 2012 [facility] [address] [id number] [address] [place] [address], [place] [address] Apr, [facility] [address] [id number] [address] [place] [address], [place] [address] Apr, [facility] [address] [id number] [address] [place] [address], [place] [address] Mar, [facility] [address] [id number] [address] [place] [address], [place] [address] Mar, [facility] [address] [id number] [address] [place] [address], [place] [address] Feb, [facility] [address] [id number] [address] [place] [address], [place] [address] Jan, [facility] [address] [id number] [address] [place] [address], [place] [address] Jan, [facility] [address] [id number] [address] [place] [address], [place] [address] Dec, [facility] [address] [id number] [address] [place] [address], [place] [address] Nov, [facility] [address] [id number] [address] [place] [address], [place] [address] Nov, [facility] [address] [id number] [address] [place] [address], [place] [address] October, [facility] [address] [id number] [address] [place] [address], [place] [address] October, [facility] [address] [id number] [address] [place] [address], [place] [address] Sep, [facility] [address] [id number] [address] [place] [address], [place] [address] Sep, [facility] [address] [id number] [address] [place] [address], [place] [address] May, [facility] [address] [id number] [address] [place] [address], [place] [address] Apr, [facility] [address] [id number] [address] [place] [address], [place] [address] Apr, [facility] [address] [id number] [address] [place] [address], [place] [address] Apr, [facility] [address] [id number] [address] [place] [address], [place] [address] Apr, [facility] [address] [id number] [address] [place] [address], [place] [address] Apr, [facility] [address] [id number] [address] [place] [address] Apr, [facility] [address] [id number] [address] [place] [address], [place] [address] Apr, [facility] [address] [id number] [address] [place] [address], [place] [address] 07 Apr, 2011 [facility] [address] [id number] [address] [place] [address], [place] [address] Mar, [facility] [address] [id number] [address] [place] [address] Mar, [facility] [address] [facility] [id number] [address] [place] [id number] Mar, [facility] [address] [facility] [id number] [address] [place] [id number] Mar, [facility] [address] [facility] [id number] [address] [place] [id number] Mar, [facility] [address] [facility] [id number] [address] [place] [id number] Mar, IMMUNIZATIONS No Known Immunizations SOCIAL HISTORY [...] surgeryx3 Hospitalization History Mental floor at [facility]
--- OUTSIDE RECORDS SUMMARY | 2019-12-24 19:54 | XMS REPORT ---
Author Author Trey Christianson Organization 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 Name Role Phone AIRAM Christianson Unavailable PROBLEMS Type Condition ICD9-CM Code APL51-PS Code Onset Dates Condition S tatus SNOMED Code Problem Nondependent 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 Ac tive 854262138 Problem Other chronic pain G89.29 Active 1 88026442 Problem Unspecified epilepsy without mention of intractable ep ilepsy G40.909 Active 55413525 Problem Hyperlipidemia, unspecified E78.5 Ac tive 64466796 Problem Hypertension I10 Active 8174622 3 Problem Esophageal reflux K21.9 Active 23 8589182 Problem Rheumatoid arthritis M06.9 Active 28618661 Problem Cough R05 Active 96955971 Problem Acquired hypothyroidism E03.9 Active 620236867 Problem Unspecified open-angle glaucoma, stage unspecified H40.10X0 Feb, Active 66519735 Problem Presbyopia H52.4 Active 83065240 Problem Insomnia G47.00 Active 376463573 Problem Arthralgia M25.50 Active 95870671 Problem Thyroid nodule E04.1 Active 07979 5005 Problem Anxiety disorder, unspecified F41.9 Active 354584907 Problem Chronic tension-type headache, intractable G44.221 Active 748198510 Problem Neuropathy G62.9 Active 214239039 Problem Goiter E04.9 Active 2435420 Problem Multinodular goiter E04.2 Active 958027331 Problem Carpal tunnel syndrome of left wrist G56.02 Active 593195039242019 Problem Chronic obstructive pulmonary disease, unspecified COPD ty pe J44.9 Active 57720388 Problem BMI 40.0-44.9, adult Z68.41 Active 384372022 Problem Seasonal allergic rhinitis due to pollen J30.1 Active 34858749 Problem Depression F32.9 Active 98108084 Problem Essential hypertension I10 Active 14491492 Problem Depressive disorder F32.9 Active 57008076 Problem Right-sided low back pain without sciatica M54.5 Active 415255938 Problem Reactive airway disease with out complication, unspecified asthma severity, unspecified whether persistent J45.909 Active 529589919779 Problem Urge incontinence of urine N39.41 Act chen 08294262 Problem Abnormal laboratory test R89.9 Activ e 002932978 Problem COPD with exacerbation J44.1 Active 630369310 ALLERGIES No Information ENCOUNTERS Encounter Location Date Diagnosis [place] [address] [address] Feb, [place] [address] [address] Feb, [facility] [place] [address] [address] Jan, Bronchitis J40 [place] [address] [address] October, Acquired hypothyroidism E03. 9 [place] [address] [address] October, Acute gastritis without hemo rrhage, unspecified gastritis type K29.00 ; Epigastric pain R10.13 ; Essential hypertension I10 ; Screening for colon cancer Z12.11 and BMI 40.0-44.9, adult Z68.41 [place] [address] [address] October, [facility] [place] [address] [address] October, Chest pain R07.9 and Morbid obesity E66.01 [facility] [address] [address] Sep, Generalized abdominal pain R 10.84 ; Morbid obesity E66.01 ; Non-intractable vomiting with nausea, unspecified vomiting type R11.2 and Seasonal allergic rhinitis due to pollen J30.1 [facility] [place] [address] [place] [address] Jul, COPD with exacerbation J44.1 ; Viral upper respiratory tract infection J06.9 and Morbid obesity E66.01 [facility] [address] [place] [address] Jun, Viral upper respiratory trac t infection J06.9 [facility] [address] [address] Apr, Abnormal laboratory test R89 .9 [facility] [address] [address] Apr, Abnormal laboratory test R89 .9 [place] [address] [address] Apr, Abnormal laboratory test R89 .9 [facility] [address] [address] Apr, [facility] [address] [address] Apr, [place] [address] [address] Apr, Nonintractable episodic head ache, unspecified headache type R51 ; Urge incontinence of urine N39.41 ; BMI 40.0-44.9, adult Z68.41 ; Myalgia M79.10 and Acute cystitis without hematuria N30.00 [facility] [address] [place] [id number] [address] [place] [address] Mar, Nasal congestion R09.81 ; Lo w back pain M54.5 ; Reactive airway disease without complication, unspecified asthma severity, unspecified whether persistent J45.909 ; Other chronic pain G89.29 ; Acute cystitis with hematuria N30.01 and BMI 40.0-44.9, adult Z68.41 [facility] [address] [place] [id number] [address] [place] [address] Mar, Acute cystitis with hematuri a N30.01 [facility] [address] [address] 25 Mar, 2018 BMI 40.0-44.9, adult Z68.41 ; Acute cystitis with hematuria N30.01 ; Acute bilateral low back pain without sciatica M54.[address] [facility] [address] [address] 17 Mar, 2018 Hypertension I10 ; Acquired hypothyroidism E03.9 ; Esophageal reflux K21.9 ; Chronic obstructive pulmonary disease, unspecified COPD type J44.9 and BMI 40.0-44.9, adult Z68.41 [place] [address] [address] 15 Mar, 2018 Hypertension I10 [place] [address] [address] Nov, Hyperlipidemia, unspecified E78.5 [place] [address] [address] October, Chest pain, unspecified type R07.9 and Acquired hypothyroidism E03.9 [place] [address] [address] October, Chest pain, unspecified type R07.9 ; Family history of coronary artery disease Z82.49 ; Carpal tunnel syndrome of left wrist G56.02 ; Hypertension I10 ; Esophageal reflux K21.9 ; Arthralgia M25.50 ; Acquired hypothyroidism E03.9 ; Cough R05 ; Nausea R11.0 ; Weight gain R63.5 and BMI 45.0-49.9, adult Z68.42 [place] [address] [address] Jun, Acquired hypothyroidism E03. 9 and Cough R05 [place] [address] [address] May, [address] [address] Feb, Tarsal tunnel syndrome of timi th lower extremities G57.53 and Neuropathy G62.9 [place] [address] [place] [address] Dec, Pleuritis R09.1 [place] [address] [place] [id number] [address] [place] [address] Nov, [place] [address] [place] [id number] [place] [address] October, Arthralgia, unspecified join t M25.50 and Allergy, initial encounter T78.40XA [place] [address] [address] October, [place] [address] [address] October, Acute recurrent maxillary si nusitis J01.01 and Arthralgia M25.50 [place] [address] [place] [id number] [place] [address] Sep, Pharyngitis due to other org anism J02.8 [place] [address] [place] [address] Aug, Acute nasopharyngitis J00 [place] [address] [address] Aug, Multinodular goiter E04.2 [place] [address] [place] [id number] [place] [address] Aug, Thyroid nodule E04.1 [place] [address] [place] [id number] [place] [address] Jul, Tarsal tunnel syndrome of timi th lower extremities G57.53 [place] [address] [place] [id number] [place] [address] Jun, Pneumonia due to infectious organism, unspecified laterality, unspecified part of lung J18.9 [place] [address] [address] Jun, Bronchospasm with bronchitis , acute J20.9 [place] [address] [address] May, Acute non-recurrent frontal sinusitis J01.10 [place] [address] [address] May, Flat foot [pes planus] (acqu ired), left foot M21.42 ; Flat foot [pes planus] (acquired), right foot M21.41 and Neuropathy G62.[address] [address] Apr, Chronic tension-type headach e, intractable G44.221 ; Right lower quadrant abdominal pain R10.31 ; Cervicalgia M54.2 ; Acute gastritis without hemorrhage, unspecified gastritis type K29.00 and Hypertension I10 [place] [address] [address] Mar, Depression F32.9 and Anxiety disorder, unspecified F41.[address] [address] Feb, Depressive disorder F32.9 an d Anxiety disorder, unspecified F41.9 [place] [address] [address] Jan, Dysuria R30.0 ; Lower abdomi nal pain R10.30 ; Acute bilateral low back pain without sciatica M54.5 ; Nausea and vomiting, unspecified intactability, vomiting of unspecified type R11.2 ; Pain in right foot M79.671 and Pain of left foot M79.672 [place] [address] [address] Dec, Urinary tract infection, sit e not specified N39.0 [place] [address] [address] Dec, [facility] [address] [facility] [id number] [address] [place] [address] Nov, [facility] [address] [facility] [id number] [address] [place] [address] Nov, Dysuria R30.0 [facility] [address] [facility] [id number] [address] [place] [address] Nov, Dysuria R30.0 and Acute cyst itis with hematuria N30.01 [facility] [address] [facility] [id number] [address] [place] [address] October, Nausea R11.0 [facility] [address] [facility] [id number] [address] [place] [address] October, Thyroid nodule E04.1 ; Carpa l tunnel syndrome, left upper limb G56.02 ; Carpal tunnel syndrome, right upper limb G56.01 and Constipation, unspecified constipation type K59.00 [facility] [address] [facility] [id number] [address] [place] [address] October, [facility] [address] [facility] [id number] [address] [place] [address] October, Thyroid nodule E04.1 [facility] [address] [place] [id number] [address] [place] [address] October, Cold thyroid nodule E04.1 [facility] [address] [facility] [id number] [address] [place] [address] October, [facility] [address] [facility] [id number] [address] [place] [address] Sep, Thyroid nodule E04.1 [facility] [address] [facility] [id number] [address] [place] [address] Sep, Thyroid nodule E04.1 [facility] [address] [facility] [id number] [address] [place] [address] Sep, Thyroid nodule E04.1 ; Hyper tension I10 ; Esophageal reflux K21.9 and Hyperlipidemia, unspecified E78.5 [place] [address] [address] 14 Aug, 2015 Other chronic pain G89.29 ; Sinusitis J32.9 and Hypertension I10 [place] [address] [address] 29 Jul, 2015 [place] [address] [address] 15 Jul, 2015 [place] [address] [address] 10 Jul, 2015 Insomnia G47.00 and Arthralg ia M25.50 [place] [address] [address] 10 Jul, 2015 Depressive disorder F32.9 an d Anxiety disorder, unspecified F41.9 [place] [address] [address] May, Right-sided low back pain wi thout sciatica M54.5 and Depression F32.9 [place] [address] [address] Apr, Hematuria R31.9 [place] [address] [address] Mar, Other chronic pain G89.29 [place] [address] [address] Mar, Other chronic pain G89.29 [place] [address] [address] Feb, [place] [address] [address] 22 Feb, 2015 Other chronic pain 338.29 ; Dysuria 788.1 ; UTI (urinary tract infection) 599.0 ; Insomnia 780.52 ; Hot flashes 627.[address] [facility] [address] [id number] [address] [place] [address] Feb, Dysuria 788.1 [facility] [address] [facility] [id number] [address] [place] [address] Feb, [facility] [address] [facility] [id number] [address] [place] [address] Jan, [facility] [address] [id number] [address] [place] [address] Jan, [facility] [address] [facility] [id number] [address] [place] [address] Jan, Fibromyalgia 729.1 ; Hyperte nsion 401.9 ; Dysthymia 300.[address] [facility] [address] [facility] [id number] [address] [place] [address] Dec, [facility] [address] [facility] [id number] [address] [place] [address] Dec, [facility] [address] [facility] [id number] [address] [place] [address] Dec, [facility] [address] [facility] [id number] [address] [place] [address] Nov, Other chronic pain 338.29 [facility] [address] [id number] [address] [place] [address] October, [facility] [address] [facility] [id number] [address] [place] [address] October, [facility] [address] [id number] [address] [place] [address] Sep, [facility] [address] [facility] [id number] [address] [place] [address] Sep, [facility] [address] [facility] [id number] [address] [place] [address] Aug, [facility] [place] [facility] [address] [id number] [facility] [place] [address] Aug, [facility] [address] [id number] [address] [place] [address], [place] [address] Aug, [facility] [address] [id number] [address] [place] [address], [place] [address] Aug, [facility] [address] [id number] [address] [place] [address], [place] [address] Aug, [facility] [address] [id number] [address] [place] [address], [place] [address] Aug, [facility] [address] [id number] [address] [place] [address], [place] [address] Aug, [facility] [address] [id number] [address] [place] [address], [place] [address] Aug, [facility] [address] [id number] [address] [place] [address], [place] [address] Aug, [facility] [address] [id number] [address] [place] [address], [place] [address] Aug, [facility] [address] [id number] [address] [place] [address], [place] [address] Aug, [facility] [address] [id number] [address] [place] [address], [place] [address] Aug, [facility] [address] [id number] [address] [place] [address], [place] [address] Aug, [facility] [address] [id number] [address] [place] [address], [place] [address] Aug, [facility] [address] [id number] [address] [place] [address], [place] [address] Jul, [facility] [address] [id number] [address] [place] [address], [place] [address] Jul, [facility] [address] [id number] [address] [place] [address], [place] [address] Jul, [facility] [address] [id number] [address] [place] [address], [place] [address] Jul, [facility] [address] [id number] [address] [place] [address], [place] [address] Jul, [facility] [address] [id number] [address] [place] [address], [place] [address] Jul, [facility] [address] [id number] [address] [place] [address], [place] [address] Jun, [facility] [address] [id number] [address] [place] [address], [place] [address] Jun, [facility] [address] [id number] [address] [place] [address], [place] [address] Jun, [facility] [address] [id number] [address] [place] [address], [place] [address] Jun, [facility] [address] [id number] [address] [place] [address], [place] [address] May, [facility] [address] [id number] [address] [place] [address], [place] [address] May, [facility] [address] [id number] [address] [place] [address], [place] [address] May, [facility] [address] [id number] [address] [place] [address], [place] [address] May, [facility] [place] [facility] [address] [id number] [address] [place] [address], [place] [address] May, [facility] [place] [facility] [address] [id number] [address] [place] [address], [place] [address] May, [facility] [place] [facility] [address] [id number] [address] [place] [address], [place] [address] May, [facility] [place] [facility] [address] [id number] [address] [place] [address], [place] [address] May, [facility] [place] [facility] [address] [id number] [address] [place] [address], [place] [address] May, [facility] [address] [id number] [address] [place] [address], [place] [address] May, [facility] [address] [id number] [address] [place] [address], [place] [address] Apr, [facility] [address] [id number] [address] [place] [address], [place] [address] Apr, [facility] [address] [id number] [address] [place] [address], [place] [address] Apr, [facility] [address] [id number] [address] [place] [address], [place] [address] Apr, [facility] [address] [id number] [address] [place] [address], [place] [address] Apr, [facility] [address] [id number] [address] [place] [address], [place] [address] Apr, [facility] [address] [id number] [address] [place] [address], [place] [address] Apr, [facility] [address] [id number] [address] [place] [address], [place] [address] Apr, [facility] [address] [id number] [address] [place] [address], [place] [address] Apr, [facility] [place] [facility] [address] [id number] [address] [place] [address], [place] [address] Mar, [facility] [address] [id number] [address] [place] [address], [place] [address] Mar, [facility] [place] [facility] [address] [id number] [address] [place] [address], [place] [address] Mar, [facility] [place] [facility] [address] [id number] [address] [place] [address], [place] [address] Mar, [facility] [place] [facility] [address] [id number] [address] [place] [address], [place] [address] Mar, [facility] [address] [id number] [address] [place] [address], [place] [address] 08 Mar, 2013 [facility] [place] [facility] [address] [id number] [address] [place] [address], [place] [address] Mar, [facility] [place] [facility] [address] [id number] [address] [place] [address], [place] [address] Mar, [facility] [place] [facility] [address] [id number] [address] [place] [address], [place] [address] 30 Feb, 2013 [facility] [place] [facility] [address] [id number] [address] [place] [address], [place] [address] 30 Feb, 2013 [facility] [place] [facility] [address] [id number] [address] [place] [address], [place] [address] 24 Feb, 2013 [facility] [place] [facility] [address] [id number] [address] [place] [address], [place] [address] 24 Feb, 2013 [facility] [place] [facility] [address] [id number] [address] [place] [address], [place] [address] 22 Feb, 2013 [facility] [place] [facility] [address] [id number] [address] [place] [address], [place] [address] 22 Feb, 2013 [facility] [place] [facility] [address] [id number] [address] [place] [address], [place] [address] 10 Feb, 2013 [facility] [place] [facility] [address] [id number] [address] [place] [address], [place] [address] 10 Feb, 2013 [facility] [place] [facility] [address] [id number] [address] [place] [address], [place] [address] 03 Sep, 2013 [facility] [place] [facility] [address] [id number] [address] [place] [address], [place] [address] 03 Sep, 2013 [facility] [place] [facility] [address] [id number] [address] [place] [address], [place] [address] 03 Sep, 2013 [facility] [facility] [address] [id number] [address] [place] [address], [place] [address] 03 Sep, 2013 [facility] [address] [id number] [address] [place] [address], [place] [address] Feb, [facility] [address] [id number] [address] [place] [address], [place] [address] Feb, [facility] [address] [id number] [address] [place] [address], [place] [address] Jan, [facility] [address] [id number] [address] [place] [address], [place] [address] Jan, [facility] [address] [id number] [address] [place] [address], [place] [address] Dec, [facility] [address] [id number] [address] [place] [address], [place] [address] Dec, [facility] [address] [id number] [address] [place] [address], [place] [address] Dec, [facility] [address] [id number] [address] [place] [address], [place] [address] Dec, [facility] [address] [id number] [address] [place] [address], [place] [id number] Dec, [facility] [address] [id number] [address] [place] [address], [place] [address] Dec, [facility] [address] [id number] [address] [place] [address], [place] [address] Dec, [facility] [address] [id number] [address] [place] [address], [place] [address] Dec, [facility] [address] [id number] [address] [place] [address], [place] [address] Dec, [facility] [address] [id number] [address] [place] [address], [place] [address] Dec, [facility] [address] [id number] [address] [place] [address], [place] [address] Dec, [facility] [address] [id number] [address] [place] [address], [place] [address] Dec, [facility] [address] [id number] [facility] [place] [address] Dec, 2013 [facility] [address] [id number] [facility] [place] [address] Dec, 2013 [facility] [address] [id number] [address] [place] [address], [place] [address] Dec, 2013 [facility] [address] [id number] [address] [place] [address], [place] [address] Dec, 2013 [facility] [address] [id number] [address] [place] [address], [place] [address] Dec, 2013 [facility] [address] [id number] [address] [place] [address], [place] [address] Dec, [facility] [address] [id number] [address] [place] [address], [place] [address] Dec, 2013 [facility] [address] [id number] [address] [place] [address], [place] [address] Nov, [facility] [address] [id number] [address] [place] [address], [place] [address] Nov, [facility] [facility] [address] [id number] [address] [place] [address], [place] [address] Nov, [facility] [address] [id number] [address] [place] [address], [place] [address] Nov, [facility] [address] [id number] [address] [place] [address], [place] [address] Nov, [facility] [address] [id number] [address] [place] [address], [place] [address] Nov, [facility] [address] [id number] [address] [place] [address], [place] [address] Nov, [facility] [address] [id number] [address] [place] [address], [place] [address] Nov, [facility] [address] [id number] [address] [place] [address], [place] [address] Nov, [facility] [address] [id number] [facility] [place] [address] October, [facility] [address] [id number] [address] [place] [address], [place] [address] October, [facility] [address] [id number] [address] [place] [address], [place] [address] October, [facility] [address] [id number] [address] [place] [address], [place] [address] October, [facility] [address] [id number] [address] [place] [address], [place] [address] October, [facility] [address] [id number] [address] [place] [address], [place] [address] October, [facility] [address] [id number] [address] [place] [address], [place] [address] October, [facility] [address] [id number] [address] [place] [address], [place] [address] October, [facility] [address] [id number] [address] [place] [address], [place] [address] Sep, [facility] [address] [id number] [address] [place] [address], [place] [address] Sep, [facility] [address] [id number] [address] [place] [address], [place] [address] Sep, [facility] [address] [id number] [address] [place] [address], [place] [address] Sep, [facility] [address] [id number] [address] [place] [address], [place] [address] Sep, [facility] [address] [id number] [address] [place] [address], [place] [address] Sep, [facility] [address] [id number] [address] [place] [address], [place] [address] Sep, [facility] [address] [id number] [address] [place] [address], [place] [address] Aug, [facility] [address] [id number] [address] [place] [address], [place] [address] Aug, [facility] [address] [id number] [address] [place] [address], [place] [address] Aug, [facility] [address] [id number] [address] [place] [address], [place] [address] Aug, [facility] [address] [id number] [address] [place] [address], [place] [address] Aug, [facility] [address] [id number] [address] [place] [address], [place] [address] Aug, [facility] [address] [id number] [address] [place] [address], [place] [address] Jul, [facility] [address] [id number] [address] [place] [address], [place] [address] Jul, [facility] [address] [id number] [address] [place] [address], [place] [address] Jul, [facility] [address] [id number] [address] [place] [address], [place] [address] Jul, [facility] [address] [id number] [address] [place] [address], [place] [address] Jul, [facility] [address] [id number] [address] [place] [address], [place] [address] Jul, [facility] [address] [id number] [address] [place] [address], [place] [address] Jun, [facility] [address] [id number] [address] [place] [address], [place] [address] Jun, [facility] [address] [id number] [address] [place] [address], [place] [address] Jun, [facility] [address] [id number] [address] [place] [address], [place] [address] Jun, [facility] [address] [id number] [address] [place] [address], [place] [address] Jun, [facility] [address] [id number] [address] [place] [address], [place] [address] Jun, [facility] [address] [id number] [address] [place] [address], [place] [address] Jun, [facility] [address] [id number] [address] [place] [address], [place] [address] Jun, [facility] [address] [id number] [address] [place] [address], [place] [address] Jun, [facility] [address] [id number] [address] [place] [address], [place] [address] Jun, [facility] [address] [id number] [address] [place] [address], [place] [address] Jun, [facility] [address] [id number] [address] [place] [address], [place] [address] Jun, [facility] [address] [id number] [address] [place] [address], [place] [address] Jun, [facility] [address] [id number] [address] [place] [address], [place] [address] May, [facility] [address] [id number] [address] [place] [address], [place] [address] May, [facility] [address] [id number] [address] [place] [address], [place] [address] May, [facility] [address] [id number] [address] [place] [address], [place] [address] May, [facility] [address] [id number] [address] [place] [address], [place] [address] May, [facility] [address] [id number] [address] [place] [address], [place] [address] May, [facility] [address] [id number] [address] [place] [address] 14 May, 2013 [facility] [address] [id number] [address] [place] [address], [place] [address] 12 May, 2013 [facility] [address] [id number] [address] [place] [address], [place] [address] 12 May, 2013 [facility] [address] [id number] [address] [place] [address], [place] [address] May, [facility] [address] [id number] [address] [place] [address], [place] [address] 11 May, 2013 [facility] [address] [id number] [address] [place] [address], [place] [address] May, [facility] [address] [id number] [address] [place] [address], [place] [address] May, [facility] [address] [id number] [address] [place] [address], [place] [address] May, [facility] [address] [id number] [address] [place] [address], [place] [address] May, [facility] [address] [id number] [address] [place] [address], [place] [address] 08 May, 2013 [facility] [address] [id number] [address] [place] [address], [place] [address] 07 May, 2013 [facility] [address] [id number] [address] [place] [address], [place] [address] May, [facility] [address] [id number] [address] [place] [address], [place] [address] May, [facility] [address] [id number] [address] [place] [address], [place] [address] May, [facility] [address] [id number] [address] [place] [address], [place] [address] May, [facility] [address] [id number] [address] [place] [address], [place] [address] Apr, [facility] [address] [id number] [address] [place] [address], [place] [address] Apr, [facility] [address] [id number] [address] [place] [address], [place] [address] Apr, [facility] [address] [id number] [address] [place] [address], [place] [address] Apr, [facility] [address] [id number] [address] [place] [address], [place] [address] 08 Mar, 2013 [facility] [address] [id number] [address] [place] [address], [place] [address] 23 Feb, 2013 [facility] [address] [id number] [address] [place] [address], [place] [address] 16 Feb, 2013 [facility] [address] [id number] [address] [place] [address], [place] [address] 13 Feb, 2013 [facility] [address] [id number] [address] [place] [address], [place] [address] 10 Feb, 2013 [facility] [address] [id number] [address] [place] [address], [place] [address] 09 Feb, 2013 [facility] [address] [id number] [address] [place] [address], [place] [address] Feb, [facility] [address] [id number] [address] [place] [address], [place] [address] Jan, [facility] [address] [id number] [address] [place] [address], [place] [address] Jan, [facility] [address] [id number] [address] [place] [address], [place] [address] Jan, [facility] [address] [id number] [address] [place] [address], [place] [address] Dec, [facility] [address] [id number] [address] [place] [address], [place] [address] Dec, [facility] [address] [id number] [address] [place] [address] [address] 17 Dec, 2012 [facility] [address] [id number] [address] [place] [address], [place] [address] 15 Dec, 2012 [facility] [address] [id number] [address] [place] [address], [place] [address] Dec, [facility] [address] [id number] [address] [place] [address], [place] [address] Nov, [facility] [address] [id number] [address] [place] [address], [place] [address] Nov, [facility] [address] [id number] [address] [place] [address], [place] [address] Nov, [facility] [address] [id number] [address] [place] [address], [place] [address] Nov, [facility] [address] [id number] [address] [place] [address], [place] [address] Nov, [facility] [address] [id number] [address] [place] [address], [place] [address] 08 Nov, 2012 [facility] [address] [id number] [address] [place] [address], [place] [address] 07 Nov, 2012 [facility] [address] [id number] [address] [place] [address], [place] [address] 06 Nov, 2012 [facility] [address] [id number] [address] [place] [address], [place] [address] 05 Nov, 2012 [facility] [address] [id number] [address] [place] [address] Nov, [facility] [address] [id number] [address] [place] [address], [place] [address] October, [facility] [address] [id number] [address] [place] [address], [place] [address] October, [facility] [address] [id number] [address] [place] [address], [place] [address] Sep, [facility] [address] [id number] [address] [place] [address], [place] [address] 08 Sep, 2012 [facility] [address] [id number] [address] [place] [address], [place] [address] 08 Sep, 2012 [facility] [address] [id number] [address] [place] [address], [place] [address] Sep, [facility] [address] [id number] [address] [place] [address], [place] [address] Sep, [facility] [address] [id number] [address] [place] [address], [place] [address] Aug, [facility] [address] [id number] [address] [place] [address], [place] [address] Aug, [facility] [address] [id number] [address] [place] [address], [place] [address] Jul, [facility] [address] [id number] [address] [place] [address], [place] [address] Jul, [facility] [address] [id number] [address] [place] [address], [place] [address] Jun, [facility] [address] [id number] [address] [place] [address], [place] [address] Jun, [facility] [address] [id number] [address] [place] [address], [place] [address] May, [facility] [address] [id number] [address] [place] [address], [place] [address] May, [facility] [address] [id number] [address] [place] [address], [place] [address] May, [facility] [address] [id number] [address] [place] [address], [place] [address] May, [facility] [address] [id number] [address] [place] [address], [place] [address] Apr, [facility] [address] [id number] [address] [place] [address], [place] [address] Apr, [facility] [address] [id number] [address] [place] [address], [place] [address] 23 Apr, 2012 [facility] [address] [id number] [address] [place] [address], [place] [address] Apr, [facility] [address] [id number] [address] [place] [address], [place] [address] Apr, [facility] [address] [id number] [address] [place] [address], [place] [address] Apr, [facility] [address] [id number] [address] [place] [address], [place] [address] 14 Apr, 2012 [facility] [address] [id number] [address] [place] [address], [place] [address] Apr, [facility] [address] [id number] [address] [place] [address], [place] [address] Apr, [facility] [address] [id number] [address] [place] [address], [place] [address] 15 Mar, 2012 [facility] [address] [id number] [address] [place] [address], [place] [address] Mar, [facility] [address] [id number] [address] [place] [address] 05 Feb, 2012 [facility] [address] [id number] [address] [place] [address] Jan, [facility] [address] [id number] [address] [place] [address] Jan, [facility] [address] [id number] [address] [place] [address], [place] [address] Dec, [facility] [address] [id number] [address] [place] [address], [place] [address] Nov, [facility] [address] [id number] [address] [place] [address] Nov, [facility] [address] [id number] [address] [place] [address] October, [facility] [address] [id number] [address] [place] [address], [place] [address] October, [facility] [address] [id number] [address] [place] [address], [place] [address] Sep, [facility] [address] [id number] [address] [place] [address], [place] [address] Sep, [facility] [address] [id number] [address] [place] [address], [place] [address] May, [facility] [address] [id number] [address] [place] [address], [place] [address] Apr, [facility] [address] [id number] [address] [place] [address], [place] [address] Apr, [facility] [address] [id number] [address] [place] [address] Apr, [facility] [address] [id number] [address] [place] [address], [place] [address] Apr, [facility] [address] [id number] [address] [place] [address] Apr, [facility] [address] [id number] [address] [place] [address] Apr, [facility] [address] [id number] [address] [place] [address] Apr, [facility] [address] [id number] [address] [place] [address] Apr, [facility] [address] [id number] [address] [place] [address], [place] [address] Mar, [facility] [address] [id number] [address] [place] [address], [place] [address] Mar, [facility] [address] [id number] [address] [place] [address], [place] [address] Mar, [facility] [address] [id number] [address] [address] Mar, [facility] [address] [facility] [id number] [address] [place] [address] Mar, [facility] [address] [facility] [id number] [place] [address] Mar, IMMUNIZATIONS No Known Immunizations SOCIAL HISTORY Never Assessed REASON FOR VISIT PLAN OF CARE VITAL SIGNS Height 62 in 2014-06-05 Weight 226.3 lbs 2014-06-05 Temperature 97.2 degrees Fahrenheit 2014-06-05 Blood pressure systolic 118 mmHg 2014-06-05 Blood pressure diastolic 80 mmHg 2014-06-05 MEDICATIONS Unknown Medications RESULTS No Results PROCEDURES Procedure Date Ordered Result Body Site URINE CULTURE/COLONY COUNT Jun 05, 2014 URINALYSIS, AUTO, W/O SCOPE Jun 05, 2014 INSTRUCTIONS MEDICATIONS ADMINISTERED No Known Medications MEDICAL (GENERAL) HISTORY Type Description Date Medical History HTN Medical History Depression Medical History Arthritis Medical History COPD Surgical History Breast lump removed Surgical History Removal of cyst from ovary Surgical History cholecystectomy Surgical History Stomach surgeryx3 Hospitalization History Mental floor at [facility]
--- OUTSIDE RECORDS SUMMARY | 2019-12-24 19:55 | XMS REPORT ---
Author Author Trey POLK Organization [facility] Address [address] [place] [address] Care Team Providers Care Agile Java Developer Name Role Phone SYBIL POLK Unavailable PROBLEMS Type Condition ICD9-CM Code HYZ97-HE Code Onset Dates Condition S tatus SNOMED Code Problem Nondependent 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 Ac tive 964836876 Problem Other chronic pain G89.29 Active 1 04122911 Problem Unspecified epilepsy without mention of intractable ep ilepsy G40.909 Active 14016639 Problem Hyperlipidemia, unspecified E78.5 Ac tive 68507746 Problem Hypertension I10 Active 4927758 3 Problem Esophageal reflux K21.9 Active 23 4561313 Problem Rheumatoid arthritis M06.9 Active 61069805 Problem Cough R05 Active 86085490 Problem Acquired hypothyroidism E03.9 Active 857465129 Problem Unspecified open-angle glaucoma, stage unspecified H40.10X0 Feb, Active 27605922 Problem Presbyopia H52.4 Active 53090142 Problem Insomnia G47.00 Active 770599135 Problem Arthralgia M25.50 Active 92902874 Problem Thyroid nodule E04.1 Active 98996 5005 Problem Anxiety disorder, unspecified F41.9 Active 114914073 Problem Chronic tension-type headache, intractable G44.221 Active 838069233 Problem Neuropathy G62.9 Active 430078897 Problem Goiter E04.9 Active 6494547 Problem Multinodular goiter E04.2 Active 505340758 Problem Carpal tunnel syndrome of left wrist G56.02 Active 188696780836689 Problem Chronic obstructive pulmonary disease, unspecified COPD ty pe J44.9 Active 04509774 Problem BMI 40.0-44.9, adult Z68.41 Active 538595459 Problem Seasonal allergic rhinitis due to pollen J30.1 Active 24081635 Problem Depression F32.9 Active 95500509 Problem Essential hypertension I10 Active 74782863 Problem Depressive disorder F32.9 Active 82479715 Problem Right-sided low back pain without sciatica M54.5 Active 426862033 Problem Reactive airway disease with out complication, unspecified asthma severity, unspecified whether persistent J45.909 Active 599872807225 Problem Urge incontinence of urine N39.41 Act chen 39496377 Problem Abnormal laboratory test R89.9 Activ e 480234389 Problem COPD with exacerbation J44.1 Active 894130526 ALLERGIES No Information ENCOUNTERS Encounter Location Date Diagnosis [place] [address] [address] Feb, [facility] [place] [address] [address] Jan, Bronchitis J40 [place] [address] [address] October, Acquired hypothyroidism E03. 9 [place] [address] [address] October, Acute gastritis without hemo rrhage, unspecified gastritis type K29.00 ; Epigastric pain R10.13 ; Essential hypertension I10 ; Screening for colon cancer Z12.11 and BMI 40.0-44.9, adult Z68.41 [place] [address] [address] October, [facility] [place] [address] [address] October, Chest pain R07.9 and Morbid obesity E66.01 [facility] [address] [address] Sep, Generalized abdominal pain R 10.84 ; Morbid obesity E66.01 ; Non-intractable vomiting with nausea, unspecified vomiting type R11.2 and Seasonal allergic rhinitis due to pollen J30.1 [facility] [place] [address] [address] Jul, COPD with exacerbation J44.1 ; Viral upper respiratory tract infection J06.9 and Morbid obesity E66.01 [facility] [address] [facility] [id number] [address] [place] [address] Jun, Viral upper respiratory trac t infection J06.9 [facility] [address] [facility] [id number] [address] [place] [address] Apr, Abnormal laboratory test R89 .9 [facility] [address] [place] [id number] [address] [place] [address] Apr, Abnormal laboratory test R89 .9 [facility] [address] [facility] [id number] [address] [place] [address] Apr, Abnormal laboratory test R89 .9 [place] [address] [place] [id number] [address] [place] [address] Apr, [place] [address] [place] [id number] [address] [place] [address] Apr, [place] [address] [address] Apr, Nonintractable episodic head ache, unspecified headache type R51 ; Urge incontinence of urine N39.41 ; BMI 40.0-44.9, adult Z68.41 ; Myalgia M79.10 and Acute cystitis without hematuria N30.00 [place] [address] [place] [id number] [address] [place] [address] Mar, Nasal congestion R09.81 ; Lo w back pain M54.5 ; Reactive airway disease without complication, unspecified asthma severity, unspecified whether persistent J45.909 ; Other chronic pain G89.29 ; Acute cystitis with hematuria N30.01 and BMI 40.0-44.9, adult Z68.41 [place] [address] [place] [id number] [address] [place] [address] Mar, Acute cystitis with hematuri a N30.01 [facility] [address] [place] [id number] [address] [place] [address] 25 Oct, 2018 BMI 40.0-44.9, adult Z68.41 ; Acute cystitis with hematuria N30.01 ; Acute bilateral low back pain without sciatica M54.5 and Nausea R11.0 [place] [address] [address] 17 Mar, 2018 Hypertension I10 ; Acquired hypothyroidism E03.9 ; Esophageal reflux K21.9 ; Chronic obstructive pulmonary disease, unspecified COPD type J44.9 and BMI 40.0-44.9, adult Z68.41 [place] [address] [address] 15 Mar, [address] [address] Nov, Hyperlipidemia, unspecified E78.[address] [address] October, Chest pain, unspecified type R07.9 and Acquired hypothyroidism E03.9 [place] [address] [address] October, Chest pain, unspecified type R07.9 ; Family history of coronary artery disease Z82.49 ; Carpal tunnel syndrome of left wrist G56.02 ; Hypertension I10 ; Esophageal reflux K21.9 ; Arthralgia M25.50 ; Acquired hypothyroidism E03.9 ; Cough R05 ; Nausea R11.0 ; Weight gain R63.5 and BMI 45.0-49.9, adult Z68.42 [place] [address] [address] Jun, Acquired hypothyroidism E03. 9 and Cough R05 [address] [address] May, [address] [address] Feb, Tarsal tunnel syndrome of timi th lower extremities G57.53 and Neuropathy G62.9 [place] [id number] [address] [place] [address] Dec, Pleuritis R09.1 [place] [address] [place] [id number] [address] [place] [address] Nov, [place] [address] [place] [id number] [address] [place] [address] October, Arthralgia, unspecified join t M25.50 and Allergy, initial encounter T78.40XA [place] [address] [place] [id number] [place] [address] October, [place] [address] [address] October, Acute recurrent maxillary si nusitis J01.01 and Arthralgia M25.50 [place] [address] [address] Sep, Pharyngitis due to other org anism J02.8 [place] [address] [place] [id number] [place] [address] Aug, Acute nasopharyngitis J00 [place] [address] [address] Aug, Multinodular goiter E04.2 [place] [address] [address] Aug, Thyroid nodule E04.1 [place] [address] [address] Jul, Tarsal tunnel syndrome of timi th lower extremities G57.53 [place] [address] [address] Jun, Pneumonia due to infectious organism, unspecified laterality, unspecified part of lung J18.9 [place] [id number] [place] [address] Jun, Bronchospasm with bronchitis , acute J20.9 [place] [address] [address] May, Acute non-recurrent frontal sinusitis J01.10 [place] [address] [address] May, Flat foot [pes planus] (acqu ired), left foot M21.42 ; Flat foot [pes planus] (acquired), right foot M21.41 and Neuropathy G62.9 [place] [address] [address] Apr, Chronic tension-type headach e, intractable G44.221 ; Right lower quadrant abdominal pain R10.31 ; Cervicalgia M54.2 ; Acute gastritis without hemorrhage, unspecified gastritis type K29.00 and Hypertension I10 [address] [address] Mar, Depression F32.9 and Anxiety disorder, unspecified F41.9 [place] [address] [address] Feb, Depressive disorder F32.9 an d Anxiety disorder, unspecified F41.9 [place] [address] [address] Jan, Dysuria R30.0 ; Lower abdomi nal pain R10.30 ; Acute bilateral low back pain without sciatica M54.5 ; Nausea and vomiting, unspecified intactability, vomiting of unspecified type R11.2 ; Pain in right foot M79.671 and Pain of left foot M79.672 [place] [address] [address] Dec, Urinary tract infection, sit e not specified N39.0 [place] [address] [address] Dec, [place] [address] [address] Nov, [facility] [address] [place] [id number] [place] [address] Nov, Dysuria R30.0 [place] [address] [place] [id number] [place] [address] Nov, Dysuria R30.0 and Acute cyst itis with hematuria N30.01 [facility] [address] [place] [id number] [place] [address] October, Nausea R11.0 [facility] [address] [place] [id number] [place] [address] October, Thyroid nodule E04.1 ; Carpa l tunnel syndrome, left upper limb G56.02 ; Carpal tunnel syndrome, right upper limb G56.01 and Constipation, unspecified constipation type K59.00 [place] [address] [place] [id number] [place] [address] October, [place] [address] [address] October, Thyroid nodule E04.1 [place] [address] [address] October, Cold thyroid nodule E04.1 [facility] [address] [address] October, [facility] [address] [address] Sep, Thyroid nodule E04.1 [place] [address] [address] Sep, Thyroid nodule E04.1 [place] [address] [place] [id number] [place] [address] Sep, Thyroid nodule E04.1 ; Hyper tension I10 ; Esophageal reflux K21.9 and Hyperlipidemia, unspecified E78.5 [facility] [address] [address] 14 Aug, 2015 Other chronic pain G89.29 ; Sinusitis J32.9 and Hypertension I10 [facility] [address] [facility] [id number] [address] [place] [address] 29 Jul, 2015 [facility] [address] [facility] [id number] [address] [place] [address] 15 Jul, 2015 [facility] [address] [place] [id number] [place] [address] 10 Jul, 2015 Insomnia G47.00 and Arthralg ia M25.50 [place] [address] [place] [id number] [place] [address] 10 Jul, 2015 Depressive disorder F32.9 an d Anxiety disorder, unspecified F41.9 [place] [address] [place] [id number] [place] [address] May, Right-sided low back pain wi thout sciatica M54.5 and Depression F32.9 [place] [address] [facility] [id number] [address] [place] [address] Apr, Hematuria R31.9 [place] [address] [place] [id number] [address] [place] [address] Mar, Other chronic pain G89.29 [place] [address] [place] [id number] [place] [address] Mar, Other chronic pain G89.29 [place] [address] [place] [id number] [place] [address] 28 Feb, 2015 [place] [address] [facility] [id number] [address] [place] [address] 22 Feb, 2015 Other chronic pain 338.29 ; Dysuria 788.1 ; UTI (urinary tract infection) 599.0 ; Insomnia 780.52 ; Hot flashes 627.2 and Hypertension 401.9 [place] [address] [facility] [id number] [address] [place] [address] 14 Feb, 2015 Dysuria 788.1 [facility] [address] [id number] [address] [place] [id number] Feb, [facility] [address] [id number] [address] [place] [address] Jan, [facility] [address] [facility] [id number] [address] [place] [address] Jan, [facility] [address] [id number] [address] [place] [address] Jan, Fibromyalgia 729.1 ; Hyperte nsion 401.9 ; Dysthymia 300.4 and Hot flashes 627.2 [facility] [address] [id number] [address] [place] [address] Dec, [facility] [address] [facility] [id number] [address] [place] [address] Dec, [facility] [address] [id number] [address] [place] [address] Dec, [facility] [address] [id number] [address] [place] [address] Nov, Other chronic pain 338.29 [facility] [address] [id number] [address] [place] [id number] October, [facility] [address] [id number] [address] [place] [address] October, [facility] [address] [id number] [address] [place] [address] Sep, [facility] [address] [id number] [address] [place] [id number] Sep, [facility] [address] [id number] [address] [place] [address] Aug, [facility] [address] [facility] [id number] [address] [place] [phone] Aug, [facility] [address] [id number] [address] [place] [address], [place] [address] Aug, [facility] [address] [id number] [address] [place] [address], [place] [address] Aug, [facility] [address] [id number] [address] [place] [address], [place] [address] Aug, [facility] [address] [id number] [address] [place] [address], [place] [address] Aug, [facility] [address] [id number] [address] [place] [address], [place] [address] Aug, [facility] [address] [id number] [address] [place] [address], [place] [address] Aug, [facility] [address] [id number] [address] [place] [address], [place] [address] Aug, [facility] [address] [id number] [address] [place] [address], [place] [address] Aug, [facility] [address] [id number] [address] [place] [address], [place] [address] Aug, [facility] [address] [id number] [address] [place] [address], [place] [address] Aug, [facility] [address] [id number] [address] [place] [address], [place] [address] Aug, [facility] [address] [id number] [address] [place] [address], [place] [address] Aug, [facility] [address] [id number] [address] [place] [address], [place] [address] Jul, [facility] [address] [id number] [address] [place] [address], [place] [address] Jul, [facility] [address] [id number] [address] [place] [address], [place] [address] Jul, [facility] [address] [id number] [address] [place] [address], [place] [address] Jul, [facility] [address] [id number] [address] [place] [address], [place] [address] Jul, [facility] [address] [id number] [address] [place] [address], [place] [address] Jul, [facility] [address] [id number] [address] [place] [address], [place] [address] Jun, [facility] [address] [id number] [address] [place] [address], [place] [address] Jun, [facility] [address] [id number] [address] [place] [address], [place] [address] Jun, [facility] [address] [id number] [address] [place] [address], [place] [address] Jun, [facility] [address] [id number] [address] [place] [address], [place] [address] May, [facility] [address] [id number] [address] [place] [address], [place] [address] May, [facility] [address] [id number] [address] [place] [address], [place] [address] May, [facility] [address] [id number] [address] [place] [address], [place] [address] May, [facility] [address] [id number] [address] [place] [address], [place] [address] May, [facility] [address] [id number] [address] [place] [address], [place] [address] May, [facility] [address] [id number] [address] [place] [address], [place] [address] May, [facility] [address] [id number] [address] [place] [address], [place] [address] May, [facility] [address] [id number] [address] [place] [address], [place] [address] May, [facility] [address] [id number] [address] [place] [address] [place] [address] May, [facility] [address] [id number] [address] [place] [address], [place] [address] Apr, [facility] [address] [id number] [address] [place] [address], [place] [address] Apr, [facility] [address] [id number] [address] [place] [address], [place] [address] Apr, [facility] [address] [id number] [address] [place] [address], [place] [address] Apr, [facility] [address] [id number] [address] [place] [address], [place] [address] Apr, [facility] [address] [id number] [address] [place] [address], [place] [address] Apr, [facility] [address] [id number] [address] [place] [address], [place] [address] Apr, [facility] [address] [id number] [address] [place] [address], [place] [address] Apr, [facility] [address] [id number] [address] [place] [address], [place] [address] Apr, [facility] [address] [id number] [address] [place] [address], [place] [address] Mar, [facility] [address] [id number] [address] [place] [address], [place] [address] Mar, [facility] [address] [id number] [address] [place] [id number] Mar, [facility] [address] [id number] [address] [place] [address], [place] [address] Mar, [facility] [address] [id number] [address] [place] [address], [place] [address] Mar, [facility] [address] [id number] [address] [place] [id number] Mar, [facility] [address] [id number] [facility] [place] [address] 08 Mar, 2013 [facility] [address] [id number] [address] [place] [address], [place] [address] 08 Mar, 2013 [facility] [address] [id number] [address] [place] [address], [place] [address] 30 Feb, 2013 [facility] [address] [id number] [address] [place] [address], [place] [address] 30 Sep, 2013 [facility] [address] [id number] [address] [place] [address], [place] [address] 24 Sep, 2013 [facility] [address] [id number] [address] [place] [address], [place] [address] 24 Feb, 2013 [facility] [address] [id number] [address] [place] [address], [place] [address] 22 Feb, 2013 [facility] [address] [id number] [address] [place] [address], [place] [address] 22 Feb, 2013 [facility] [address] [id number] [address] [place] [address], [place] [address] 10 Feb, 2013 [facility] [address] [id number] [address] [place] [address], [place] [address] 10 Feb, 2013 [facility] [address] [id number] [address] [place] [address], [place] [address] 03 Sep, 2013 [facility] [address] [id number] [address] [place] [address], [place] [address] 03 Sep, 2013 [facility] [address] [id number] [address] [place] [address], [place] [address] 03 Sep, 2013 [facility] [address] [id number] [address] [place] [address], [place] [address] 03 Sep, 2013 [facility] [address] [id number] [address] [place] [address], [place] [address] 03 Sep, 2013 [facility] [address] [id number] [address] [place] [address], [place] [address] Feb, [facility] [address] [id number] [address] [place] [address], [place] [address] Jan, [facility] [address] [id number] [address] [place] [address], [place] [address] Jan, [facility] [address] [id number] [address] [place] [address], [place] [address] Dec, [facility] [address] [id number] [address] [place] [address], [place] [address] Dec, [facility] [address] [id number] [address] [place] [address], [place] [address] Dec, [facility] [address] [id number] [address] [place] [address], [place] [address] Dec, [facility] [address] [id number] [address] [place] [address], [place] [id number] Dec, [facility] [address] [id number] [address] [place] [address], [place] [address] Dec, [facility] [address] [id number] [address] [place] [address], [place] [address] Dec, [facility] [address] [id number] [address] [place] [address], [place] [address] Dec, [facility] [address] [id number] [address] [place] [address], [place] [address] Dec, [facility] [address] [id number] [address] [place] [address], [place] [address] Dec, [facility] [address] [id number] [address] [place] [address], [place] [address] Dec, [facility] [address] [id number] [address] [place] [address], [place] [address] Dec, [facility] [address] [id number] [address] [place] [address], [place] [address] Dec, [facility] [address] [id number] [facility] [place] [address] Dec, [facility] [address] [id number] [address] [place] [address], [place] [address] Dec, 2013 [facility] [address] [id number] [address] [place] [address], [place] [address] Dec, [facility] [address] [id number] [address] [place] [address], [place] [address] Dec, [facility] [address] [id number] [address] [place] [address], [place] [address] Dec, [facility] [address] [id number] [address] [place] [address], [place] [address] Dec, [facility] [address] [id number] [address] [place] [address], [place] [address] Nov[facility] [facility] [address] [id number] [address] [place] [address], [place] [address] Nov, [facility] [address] [id number] [address] [place] [address], [place] [address] Nov, [facility] [address] [id number] [address] [place] [address], [place] [address] Nov, [facility] [address] [id number] [address] [place] [address], [place] [address] Nov, [facility] [address] [id number] [address] [place] [address], [place] [address] Nov, [facility] [address] [id number] [address] [place] [address], [place] [address] Nov, [facility] [address] [id number] [address] [place] [address], [place] [address] Nov, [facility] [address] [id number] [address] [place] [address], [place] [address] Nov, [facility] [address] [id number] [address] [place] [address], [place] [address] October, [facility] [address] [id number] [address] [place] [address], [place] [address] October, [facility] [address] [id number] [address] [place] [address], [place] [address] October, [facility] [address] [id number] [address] [place] [address], [place] [address] October, [facility] [address] [id number] [address] [place] [address], [place] [address] October, [facility] [address] [id number] [address] [place] [address], [place] [address] October, [facility] [address] [id number] [address] [place] [address], [place] [address] October, [facility] [address] [id number] [address] [place] [address], [place] [address] October, [facility] [address] [id number] [address] [place] [address], [place] [address] Sep, [facility] [address] [id number] [address] [place] [address], [place] [address] Sep, [facility] [address] [id number] [address] [place] [address], [place] [address] Sep, [facility] [address] [id number] [address] [place] [address], [place] [address] Sep, [facility] [address] [id number] [address] [place] [address], [place] [address] Sep, [facility] [address] [id number] [address] [place] [address], [place] [address] Sep, [facility] [address] [id number] [address] [place] [address], [place] [address] Sep, [facility] [address] [id number] [address] [place] [address], [place] [address] Aug, [facility] [address] [id number] [address] [place] [address], [place] [address] Aug, [facility] [address] [id number] [address] [place] [address], [place] [address] Aug, [facility] [address] [id number] [address] [place] [address], [place] [address] Aug, [facility] [address] [id number] [address] [place] [address], [place] [address] Aug, [facility] [address] [id number] [address] [place] [address], [place] [address] Aug, [facility] [address] [id number] [address] [place] [address], [place] [address] Jul, [facility] [address] [id number] [address] [place] [address], [place] [address] Jul, [facility] [address] [id number] [address] [place] [address], [place] [address] Jul, [facility] [address] [id number] [address] [place] [address], [place] [address] Jul, [facility] [address] [id number] [address] [place] [address], [place] [address] Jul, [facility] [address] [id number] [address] [place] [address], [place] [address] Jul, [facility] [address] [id number] [address] [place] [address], [place] [address] Jun, [facility] [address] [id number] [address] [place] [address], [place] [address] Jun, [facility] [address] [id number] [address] [place] [address], [place] [address] Jun, [facility] [address] [id number] [address] [place] [address], [place] [address] Jun, [facility] [address] [id number] [address] [place] [address], [place] [address] Jun, [facility] [address] [id number] [address] [place] [address], [place] [address] Jun, [facility] [address] [id number] [address] [place] [address], [place] [address] Jun, [facility] [address] [id number] [address] [place] [address], [place] [address] Jun, [facility] [address] [id number] [address] [place] [address], [place] [address] Jun, [facility] [address] [id number] [address] [place] [address], [place] [address] Jun, [facility] [address] [id number] [address] [place] [address], [place] [address] Jun, [facility] [address] [id number] [address] [place] [address], [place] [address] Jun, [facility] [address] [id number] [address] [place] [address], [place] [address] Jun, [facility] [address] [id number] [address] [place] [address], [place] [address] May, [facility] [address] [id number] [address] [place] [address], [place] [address] May, [facility] [address] [id number] [address] [place] [address], [place] [address] 30 May, 2013 [facility] [address] [id number] [address] [place] [address], [place] [address] 30 May, 2013 [facility] [address] [id number] [address] [place] [address], [place] [address] May, [facility] [address] [id number] [address] [place] [address], [place] [address] May, [facility] [address] [id number] [address] [place] [address], [place] [address] 14 May, 2013 [facility] [address] [id number] [address] [place] [address], [place] [address] May, [facility] [address] [id number] [address] [place] [address], [place] [address] May, [facility] [address] [id number] [address] [place] [address], [place] [address] May, [facility] [address] [id number] [address] [place] [address], [place] [address] May, [facility] [address] [id number] [address] [place] [address], [place] [address] May, [facility] [address] [id number] [address] [place] [address], [place] [address] May, [facility] [address] [id number] [address] [place] [address], [place] [address] May, [facility] [address] [id number] [address] [place] [address], [place] [address] May, [facility] [address] [id number] [address] [place] [address], [place] [address] May, [facility] [address] [id number] [address] [place] [address], [place] [address] May, [facility] [address] [id number] [address] [place] [address], [place] [address] May, [facility] [address] [id number] [address] [place] [address], [place] [address] May, [facility] [address] [id number] [address] [place] [address], [place] [address] May, [facility] [address] [id number] [address] [place] [address], [place] [address] May, [facility] [address] [id number] [address] [place] [address], [place] [address] Apr, [facility] [address] [id number] [address] [place] [address], [place] [address] Apr, [facility] [address] [id number] [address] [place] [address], [place] [address] Apr, [facility] [address] [id number] [address] [place] [address], [place] [address] Apr, [facility] [address] [id number] [address] [place] [address], [place] [address] 08 Mar, 2013 [facility] [address] [id number] [address] [place] [address], [place] [address] 23 Feb, 2013 [facility] [address] [id number] [address] [place] [address], [place] [address] 16 Feb, 2013 [facility] [address] [id number] [address] [place] [address], [place] [address] 13 Feb, 2013 [facility] [address] [id number] [address] [place] [address], [place] [address] 10 Feb, 2013 [facility] [address] [id number] [address] [place] [address], [place] [address] Feb, [facility] [address] [id number] [address] [place] [address], [place] [address] Feb, [facility] [address] [id number] [address] [place] [address], [place] [address] Jan, [facility] [address] [id number] [address] [place] [address], [place] [address] Jan, [facility] [address] [id number] [address] [place] [address], [place] [address] Jan, [facility] [address] [id number] [address] [place] [address], [place] [address] Dec, [facility] [address] [id number] [address] [place] [address], [place] [address] Dec, [facility] [address] [id number] [address] [place] [address], [place] [address] Dec, [facility] [address] [id number] [address] [place] [address], [place] [address] 15 Dec, 2012 [facility] [address] [id number] [address] [place] [address], [place] [address] 13 Dec, 2012 [facility] [address] [id number] [address] [place] [address], [place] [address] Nov, [facility] [address] [id number] [address] [place] [address], [place] [address] Nov, [facility] [address] [id number] [address] [place] [address], [place] [address] Nov, [facility] [address] [id number] [address] [place] [address], [place] [address] 13 Nov, 2012 [facility] [address] [id number] [address] [place] [address], [place] [address] Nov, [facility] [address] [id number] [address] [place] [address], [place] [address] 08 Nov, 2012 [facility] [address] [id number] [address] [place] [address], [place] [address] 07 Nov, 2012 [facility] [address] [id number] [address] [place] [address], [place] [address] Nov, [facility] [address] [id number] [address] [place] [address], [place] [address] 05 Nov, 2012 [facility] [address] [id number] [address] [place] [address], [place] [address] Nov, [facility] [address] [id number] [address] [place] [address], [place] [address] October, [facility] [address] [id number] [address] [place] [address], [place] [address] October, [facility] [address] [id number] [address] [place] [address], [place] [address] Sep, [facility] [address] [id number] [address] [place] [address], [place] [address] 08 Sep, 2012 [facility] [address] [id number] [address] [place] [id number] Sep, [facility] [address] [id number] [address] [place] [address], [place] [address] Sep, [facility] [address] [id number] [address] [place] [address], [place] [address] Sep, [facility] [address] [id number] [address] [place] [address], [place] [address] Aug, [facility] [address] [id number] [address] [place] [address], [place] [address] Aug, [facility] [address] [id number] [address] [place] [address], [place] [address] Jul, [facility] [address] [id number] [address] [place] [address], [place] [address] Jul, [facility] [address] [id number] [address] [place] [address], [place] [address] Jun, [facility] [address] [id number] [address] [place] [address], [place] [address] Jun, [facility] [address] [id number] [address] [place] [address], [place] [address] May, [facility] [address] [id number] [address] [place] [address], [place] [address] May, [facility] [address] [id number] [address] [place] [address], [place] [address] May, [facility] [address] [id number] [address] [place] [address], [place] [address] May, [facility] [address] [id number] [address] [place] [address], [place] [address] Apr, [facility] [address] [id number] [address] [place] [address], [place] [address] Apr, [facility] [address] [id number] [address] [place] [address], [place] [address] Apr, [facility] [address] [id number] [address] [place] [address], [place] [address] 20 Apr, 2012 [facility] [address] [id number] [address] [place] [address], [place] [address] 20 Apr, 2012 [facility] [address] [id number] [address] [place] [address], [place] [address] 14 Apr, 2012 [facility] [address] [id number] [address] [place] [address], [place] [address] 14 Apr, 2012 [facility] [address] [id number] [address] [place] [address], [place] [address] Apr, [facility] [address] [id number] [address] [place] [address], [place] [address] Apr, [facility] [address] [id number] [address] [place] [address], [place] [address] 15 Mar, 2012 [facility] [address] [id number] [address] [place] [address], [place] [address] Mar, [facility] [address] [id number] [address] [place] [address], [place] [address] Feb, [facility] [address] [id number] [address] [place] [address], [place] [address] Jan, [facility] [address] [id number] [address] [place] [address], [place] [address] Jan, [facility] [address] [id number] [address] [place] [address], [place] [address] Dec, [facility] [address] [id number] [address] [place] [address], [place] [address] Nov, [facility] [address] [id number] [address] [place] [address], [place] [address] Nov, [facility] [address] [id number] [address] [place] [address], [place] [address] October, [facility] [address] [id number] [address] [place] [address] [address] October, [facility] [address] [id number] [address] [place] [address], [place] [address] Sep, [facility] [address] [id number] [address] [place] [address], [place] [address] Sep, [facility] [address] [id number] [address] [place] [address], [place] [address] May, [facility] [address] [id number] [address] [place] [address], [place] [address] Apr, [facility] [address] [id number] [address] [place] [address], [place] [address] Apr, [facility] [address] [id number] [address] [place] [address], [place] [address] Apr, [facility] [address] [id number] [address] [place] [address], [place] [address] Apr, [facility] [address] [id number] [address] [place] [address], [place] [address] Apr, [facility] [address] [id number] [address] [place] [address], [place] [address] Apr, [facility] [address] [id number] [address] [place] [address], [place] [address] Apr, [facility] [address] [id number] [address] [place] [address] Apr, [facility] [address] [id number] [address] [place] [id number] Mar, [facility] [address] [id number] [address] [place] [address], [place] [id number] Mar, [facility] [address] [id number] [address] [place] [address], [place] [id number] Mar, [facility] [address] [id number] [address] [place] [address], [place] [id number] Mar, [facility] [address] [id number] [address] [place] [id number] Mar, [facility] [address] [facility] [id number] [address] [place] [id number] Mar, IMMUNIZATIONS No Known Immunizations SOCIAL HISTORY [...] Stomach surgeryx3 Hospitalization History [facility] floor at [facility]
--- OUTSIDE RECORDS SUMMARY | 2019-12-24 19:55 | XMS REPORT ---
Author Author Trey ANDRADE Organization [facility] Address [address] [place] [address] Care Team Providers Care Cafe Associate Name Role Phone SURESH ANDRDAE Unavailable PROBLEMS Type Condition ICD9-CM Code ADK07-KH Code Onset Dates Condition S tatus SNOMED Code Problem Nondependent 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 Ac tive 248592476 Problem Other chronic pain G89.29 Active 1 22821703 Problem Unspecified epilepsy without mention of intractable ep ilepsy G40.909 Active 67468227 Problem Hyperlipidemia, unspecified E78.5 Ac tive 17478798 Problem Hypertension I10 Active 3601137 3 Problem Esophageal reflux K21.9 Active 23 0324519 Problem Rheumatoid arthritis M06.9 Active 65539891 Problem Cough R05 Active 10439184 Problem Acquired hypothyroidism E03.9 Active 943028473 Problem Unspecified open-angle glaucoma, stage unspecified H40.10X0 Feb, Active 27375996 Problem Presbyopia H52.4 Active 88919297 Problem Insomnia G47.00 Active 015266268 Problem Arthralgia M25.50 Active 67622062 Problem Thyroid nodule E04.1 Active 92408 5005 Problem Anxiety disorder, unspecified F41.9 Active 263148741 Problem Chronic tension-type headache, intractable G44.221 Active 546809170 Problem Neuropathy G62.9 Active 407850889 Problem Goiter E04.9 Active 7574136 Problem Multinodular goiter E04.2 Active 083559313 Problem Carpal tunnel syndrome of left wrist G56.02 Active [id number] Problem Chronic obstructive pulmonary disease, unspecified COPD ty pe J44.9 Active 78445659 Problem BMI 40.0-44.9, adult Z68.41 Active 374884688 Problem Seasonal allergic rhinitis due to pollen J30.1 Active 41687565 Problem Depression F32.9 Active 43421608 Problem Essential hypertension I10 Active 07012070 Problem Depressive disorder F32.9 Active 95441764 Problem Right-sided low back pain without sciatica M54.5 Active 297312752 Problem Reactive airway disease with out complication, unspecified asthma severity, unspecified whether persistent J45.909 Active 779458813174 Problem Urge incontinence of urine N39.41 Act chen 90386436 Problem Abnormal laboratory test R89.9 Activ e 872545665 Problem COPD with exacerbation J44.1 Active 156550143 ALLERGIES No Information ENCOUNTERS Encounter Location Date Diagnosis [facility] [address] [address] Jan, Bronchitis J40 [place] [address] [address] October, Acquired hypothyroidism E03. 9 [place] [address] [address] October, Acute gastritis without hemo rrhage, unspecified gastritis type K29.00 ; Epigastric pain R10.13 ; Essential hypertension I10 ; Screening for colon cancer Z12.11 and BMI 40.0-44.9, adult Z68.41 [place] [address] [address] October, [facility] [place] [address] [address] October, Chest pain R07.9 and Morbid obesity E66.01 [facility] [place] [address] [address] Sep, Generalized abdominal pain R 10.84 ; Morbid obesity E66.01 ; Non-intractable vomiting with nausea, unspecified vomiting type R11.2 and Seasonal allergic rhinitis due to pollen J30.1 [facility] [place] [address] [address] Jul, COPD with exacerbation J44.1 ; Viral upper respiratory tract infection J06.9 and Morbid obesity E66.01 [facility] [place] [address] [address] Jun, Viral upper respiratory trac t infection J06.9 [facility] [address] [facility] [id number] [address] [place] [address] Apr, Abnormal laboratory test R89 .9 [facility] [address] [facility] [id number] [address] [place] [address] Apr, Abnormal laboratory test R89 .9 [facility] [address] [facility] [id number] [address] [place] [address] Apr, Abnormal laboratory test R89 .9 [facility] [address] [facility] [id number] [address] [place] [id number] Apr, [place] [address] [facility] [id number] [address] [place] [id number] Apr, [place] [address] [place] [id number] [address] [place] [id number] Apr, Nonintractable episodic head ache, unspecified headache type R51 ; Urge incontinence of urine N39.41 ; BMI 40.0-44.9, adult Z68.41 ; Myalgia M79.10 and Acute cystitis without hematuria N30.00 [facility] [address] [place] [id number] [address] [place] [address] Mar, Nasal congestion R09.81 ; Lo w back pain M54.5 ; Reactive airway disease without complication, unspecified asthma severity, unspecified whether persistent J45.909 ; Other chronic pain G89.29 ; Acute cystitis with hematuria N30.01 and BMI 40.0-44.9, adult Z68.41 [facility] [address] [facility] [id number] [address] [place] [id number] Mar, Acute cystitis with hematuri a N30.01 [facility] [address] [facility] [id number] [address] [place] [address] Mar, BMI 40.0-44.9, adult Z68.41 ; Acute cystitis with hematuria N30.01 ; Acute bilateral low back pain without sciatica M54.5 and Nausea R11.0 [place] [address] [address] Mar, Hypertension I10 ; Acquired hypothyroidism E03.9 ; Esophageal reflux K21.9 ; Chronic obstructive pulmonary disease, unspecified COPD type J44.9 and BMI 40.0-44.9, adult Z68.41 [place] [address] [address] Mar, Hypertension I10 [place] [address] [address] Nov, Hyperlipidemia, unspecified E78.5 [place] [address] [address] October, Chest pain, unspecified type R07.9 and Acquired hypothyroidism E03.9 [place] [address] [address] October, Chest pain, unspecified type R07.9 ; Family history of coronary artery disease Z82.49 ; Carpal tunnel syndrome of left wrist G56.02 ; Hypertension I10 ; Esophageal reflux K21.9 ; Arthralgia M25.50 ; Acquired hypothyroidism E03.9 ; Cough R05 ; Nausea R11.0 ; Weight gain R63.5 and BMI 45.0-49.9, adult Z68.42 [place] [address] [address] Jun, Acquired hypothyroidism E03. 9 and Cough R05 [place] [address] [address] May, [address] [address] Feb, Tarsal tunnel syndrome of timi th lower extremities G57.53 and Neuropathy G62.9 [place] [address] [address] Dec, Pleuritis R09.1 [place] [id number] [place] [address] Nov, [place] [address] [place] [id number] [address] [place] [address] October, Arthralgia, unspecified join t M25.50 and Allergy, initial encounter T78.40XA [place] [address] [place] [id number] [address] [place] [address] October, [place] [address] [address] October, Acute recurrent maxillary si nusitis J01.01 and Arthralgia M25.50 [place] [address] [place] [id number] [address] [place] [address] Sep, Pharyngitis due to other org anism J02.8 [place] [address] [address] Aug, Acute nasopharyngitis J00 [place] [address] [address] Aug, Multinodular goiter E04.2 [place] [address] [place] [id number] [address] [place] [address] Aug, Thyroid nodule E04.1 [place] [address] [place] [id number] [address] [place] [address] Jul, Tarsal tunnel syndrome of timi th lower extremities G57.53 [place] [address] [place] [id number] [address] [place] [phone] Jun, Pneumonia due to infectious organism, unspecified laterality, unspecified part of lung J18.9 [place] [address] [place] [id number] [address] [place] [address] Jun, Bronchospasm with bronchitis , acute J20.9 [place] [address] [place] [id number] [address] [place] [address] May, Acute non-recurrent frontal sinusitis J01.10 [place] [address] [address] May, Flat foot [pes planus] (acqu ired), left foot M21.42 ; Flat foot [pes planus] (acquired), right foot M21.41 and Neuropathy G62.9 [place] [address] [address] Apr, Chronic tension-type headach e, intractable G44.221 ; Right lower quadrant abdominal pain R10.31 ; Cervicalgia M54.2 ; Acute gastritis without hemorrhage, unspecified gastritis type K29.00 and Hypertension I10 [place] [address] [address] Mar, Depression F32.9 and Anxiety disorder, unspecified F41.9 [place] [address] [address] Feb, Depressive disorder F32.9 an d Anxiety disorder, unspecified F41.9 [place] [address] [address] Jan, Dysuria R30.0 ; Lower abdomi nal pain R10.30 ; Acute bilateral low back pain without sciatica M54.5 ; Nausea and vomiting, unspecified intactability, vomiting of unspecified type R11.2 ; Pain in right foot M79.671 and Pain of left foot M79.672 [place] [address] [address] Dec, Urinary tract infection, sit e not specified N39.0 [place] [address] [address] Dec, [place] [address] [address] Nov, [place] [address] [address] Nov, Dysuria R30.0 [place] [address] [facility] [id number] [address] [place] [address] Nov, Dysuria R30.0 and Acute cyst itis with hematuria N30.01 [place] [address] [place] [id number] [address] [place] [address] October, Nausea R11.0 [place] [address] [place] [id number] [place] [address] October, Thyroid nodule E04.1 ; Carpa l tunnel syndrome, left upper limb G56.02 ; Carpal tunnel syndrome, right upper limb G56.01 and Constipation, unspecified constipation type K59.00 [place] [address] [place] [id number] [address] [place] [address] October, [place] [address] [address] October, Thyroid nodule E04.1 [place] [address] [place] [id number] [address] [place] [address] October, Cold thyroid nodule E04.1 [place] [address] [place] [id number] [address] [place] [address] October, [place] [address] [place] [id number] [address] [place] [address] Sep, Thyroid nodule E04.1 [place] [address] [place] [id number] [address] [place] [address] Sep, Thyroid nodule E04.1 [place] [address] [place] [id number] [address] [place] [address] Sep, Thyroid nodule E04.1 ; Hyper tension I10 ; Esophageal reflux K21.9 and Hyperlipidemia, unspecified E78.5 [place] [address] [place] [id number] [address] [place] [address] Aug, Other chronic pain G89.29 ; Sinusitis J32.9 and Hypertension I10 [facility] [address] [address] 29 Jul, 2015 [facility] [address] [address] 15 Jul, 2015 [facility] [address] [address] 10 Jul, 2015 Insomnia G47.00 and Arthralg ia M25.50 [facility] [address] [address] 10 Jul, 2015 Depressive disorder F32.9 an d Anxiety disorder, unspecified F41.9 [place] [address] [address] May, Right-sided low back pain wi thout sciatica M54.5 and Depression F32.9 [place] [address] [address] Apr, Hematuria R31.9 [place] [address] [address] Mar, Other chronic pain G89.29 [place] [address] [address] 12 Mar, 2015 Other chronic pain G89.29 [place] [address] [address] 28 Feb, 2015 [place] [address] [address] 22 Feb, 2015 Other chronic pain 338.29 ; Dysuria 788.1 ; UTI (urinary tract infection) 599.0 ; Insomnia 780.52 ; Hot flashes 627.2 and Hypertension 401.9 [place] [address] [place] [id number] [address] [place] [address] 14 Feb, 2015 Dysuria 788.1 [place] [address] [address] Feb, [facility] [address] [id number] [address] [place] [address] Jan, [facility] [address] [id number] [address] [place] [address] Jan, [facility] [address] [id number] [address] [place] [address] Jan, Fibromyalgia 729.1 ; Hyperte nsion 401.9 ; Dysthymia 300.4 and Hot flashes 627.2 [facility] [address] [id number] [address] [place] [address] Dec, [facility] [address] [id number] [address] [place] [address] Dec, [facility] [address] [id number] [address] [place] [address] Dec, [facility] [address] [id number] [address] [place] [address] Nov, Other chronic pain 338.29 [facility] [address] [id number] [address] [place] [address] October, [facility] [address] [id number] [address] [place] [address] October, [facility] [address] [id number] [address] [place] [address] Sep, [facility] [address] [id number] [address] [place] [id number] Sep, [facility] [address] [id number] [address] [place] [id number] Aug, [facility] [address] [id number] [address] [place] [address] Aug, [facility] [address] [id number] [address] [place] [address] Aug, [facility] [address] [id number] [address] [place] [address], [place] [address] Aug, [facility] [address] [id number] [address] [place] [address], [place] [id number] Aug, [facility] [address] [id number] [address] [place] [address], [place] [id number] Aug, [facility] [address] [id number] [address] [place] [address], [place] [id number] Aug, [facility] [address] [id number] [address] [place] [address], [place] [id number] Aug, [facility] [address] [id number] [address] [place] [address], [place] [address] Aug, [facility] [address] [id number] [address] [place] [address], [place] [address] Aug, [facility] [address] [id number] [address] [place] [address], [place] [address] Aug, [facility] [address] [id number] [address] [place] [address], [place] [id number] Aug, [facility] [address] [id number] [address] [place] [address], [place] [id number] Aug, [facility] [address] [id number] [address] [place] [address], [place] [address] Aug, [facility] [address] [id number] [address] [place] [address], [place] [address] Jul, 2014 [facility] [address] [id number] [address] [place] [address], [place] [address] Jul, [facility] [address] [id number] [address] [place] [address], [place] [address] Jul, [facility] [address] [id number] [address] [place] [address], [place] [address] Jul, 2014 [facility] [address] [id number] [address] [place] [address], [place] [address] Jul, [facility] [address] [id number] [address] [place] [address], [place] [address] Jul, [facility] [address] [id number] [address] [place] [address], [place] [address] Jun, [facility] [address] [id number] [address] [place] [address], [place] [address] Jun, [facility] [address] [id number] [address] [place] [address], [place] [address] Jun, [facility] [address] [id number] [address] [place] [address], [place] [id number] Jun, [facility] [address] [id number] [address] [place] [address], [place] [address] May, [facility] [address] [id number] [address] [place] [address], [place] [address] May, [facility] [address] [id number] [address] [place] [address], [place] [address] May, [facility] [address] [id number] [address] [place] [address], [place] [address] May, [facility] [address] [id number] [address] [place] [address], [place] [id number] May, [facility] [address] [id number] [address] [place] [address], [place] [id number] May, [facility] [address] [id number] [address] [place] [address], [place] [address] May, [facility] [address] [id number] [address] [place] [address], [place] [id number] May, [facility] [address] [id number] [address] [place] [address], [place] [id number] May, [facility] [address] [id number] [address] [place] [address], [place] [address] May, [facility] [address] [id number] [address] [place] [address], [place] [address] Apr, [facility] [address] [id number] [address] [place] [address], [place] [address] Apr, [facility] [address] [id number] [address] [place] [address], [place] [address] Apr, [facility] [address] [id number] [address] [place] [address], [place] [id number] Apr, [facility] [address] [id number] [address] [place] [address], [place] [address] Apr, [facility] [address] [id number] [address] [place] [address], [place] [address] Apr, [facility] [address] [id number] [address] [place] [address], [place] [address] Apr, [facility] [address] [id number] [address] [place] [address], [place] [address] Apr, [facility] [address] [id number] [address] [place] [address], [place] [address] Apr, [facility] [address] [id number] [address] [place] [address], [place] [id number] Mar, [facility] [address] [id number] [address] [place] [address], [place] [id number] Mar, [facility] [address] [id number] [address] [place] [address], [place] [address] Mar, [facility] [address] [id number] [address] [place] [address], [place] [address] Mar, [facility] [address] [id number] [address] [place] [address], [place] [address] Mar, [facility] [address] [id number] [address] [place] [address], [place] [id number] Mar, [facility] [address] [id number] [address] [place] [address], [place] [id number] Mar, [facility] [address] [id number] [address] [place] [address], [place] [address] 08 Mar, 2013 [facility] [address] [id number] [address] [place] [address], [place] [address] 30 Feb, 2013 [facility] [address] [id number] [address] [place] [address], [place] [address] 30 Sep, 2013 [facility] [address] [id number] [address] [place] [address], [place] [address] 24 Feb, 2013 [facility] [address] [id number] [address] [place] [address], [place] [address] 24 Feb, 2013 [facility] [address] [id number] [address] [place] [address], [place] [id number] 22 Feb, 2013 [facility] [address] [id number] [address] [place] [address], [place] [id number] 22 Feb, 2013 [facility] [address] [id number] [address] [place] [address], [place] [id number] 10 Feb, 2013 [facility] [address] [id number] [address] [place] [address], [place] [id number] 10 Feb, 2013 [facility] [address] [id number] [address] [place] [address], [place] [id number] 03 Feb, 2013 [facility] [address] [id number] [address] [place] [address], [place] [id number] 03 Sep, 2013 [facility] [address] [id number] [address] [place] [address], [place] [id number] 03 Sep, 2013 [facility] [address] [id number] [address] [place] [address], [place] [id number] 03 Sep, 2013 [facility] [address] [id number] [address] [place] [address], [place] [id number] 03 Sep, 2013 [facility] [address] [id number] [address] [place] [address], [place] [id number] 03 Sep, 2013 [facility] [address] [id number] [address] [place] [address], [place] [id number] Jan, [facility] [address] [id number] [address] [place] [address], [place] [id number] Jan, [facility] [address] [id number] [address] [place] [address], [place] [id number] Dec, [facility] [address] [id number] [address] [place] [address], [place] [id number] Dec, [facility] [address] [id number] [address] [place] [address], [place] [id number] Dec, [facility] [address] [id number] [address] [place] [address], [place] [id number] Dec, [facility] [address] [id number] [address] [place] [address], [place] [id number] Dec, [facility] [address] [id number] [address] [place] [address], [place] [id number] Dec, [facility] [address] [id number] [address] [place] [address], [place] [id number] Dec, [facility] [address] [id number] [address] [place] [address], [place] [id number] Dec, [facility] [address] [id number] [address] [place] [address], [place] [id number] Dec, [facility] [address] [id number] [address] [place] [address], [place] [id number] Dec, [facility] [address] [id number] [address] [place] [address], [place] [id number] Dec, [facility] [address] [id number] [address] [place] [address], [place] [id number] Dec, [facility] [address] [id number] [address] [place] [address], [place] [id number] Dec, [facility] [address] [id number] [address] [place] [address], [place] [id number] Dec, [facility] [address] [id number] [facility] [place] [id number] Dec, [facility] [address] [id number] [facility] [place] [id number] Dec, [facility] [address] [id number] [facility] [place] [id number] Dec, [facility] [address] [id number] [address] [place] [address], [place] [id number] Dec, [facility] [address] [id number] [address] [place] [address], [place] [address] Dec, [facility] [address] [id number] [address] [place] [address], [place] [address] Nov, [facility] [address] [id number] [address] [place] [address], [place] [address] Nov, [facility] [address] [id number] [address] [place] [address], [place] [address] Nov, [facility] [address] [id number] [address] [place] [address], [place] [address] Nov, [facility] [address] [id number] [address] [place] [address], [place] [address] Nov, [facility] [address] [id number] [address] [place] [address], [place] [address] Nov, [facility] [address] [id number] [address] [place] [address], [place] [address] Nov, [facility] [address] [id number] [address] [place] [address], [place] [address] Nov, [facility] [address] [id number] [address] [place] [address], [place] [address] Nov, [facility] [address] [id number] [address] [place] [address], [place] [address] October, [facility] [address] [id number] [address] [place] [address], [place] [address] October, [facility] [address] [id number] [facility] [place] [address] October, [facility] [address] [id number] [address] [place] [address], [place] [address] October, [facility] [address] [id number] [address] [place] [address], [place] [address] October, [facility] [address] [id number] [address] [place] [address], [place] [address] October, [facility] [address] [id number] [address] [place] [address], [place] [address] October, [facility] [address] [id number] [address] [place] [address], [place] [address] October, [facility] [address] [id number] [address] [place] [address], [place] [address] Sep, [facility] [address] [id number] [address] [place] [address], [place] [address] Sep, [facility] [address] [id number] [address] [place] [address], [place] [address] Sep, [facility] [address] [id number] [address] [place] [address], [place] [address] Sep, [facility] [address] [id number] [address] [place] [address], [place] [address] Sep, [facility] [address] [id number] [address] [place] [address], [place] [address] Sep, [facility] [address] [id number] [address] [place] [address], [place] [address] Sep, [facility] [address] [id number] [address] [place] [address], [place] [address] Aug, [facility] [address] [id number] [address] [place] [address], [place] [address] Aug, [facility] [address] [id number] [address] [place] [address], [place] [address] Aug, [facility] [address] [id number] [address] [place] [address], [place] [address] Aug, [facility] [address] [id number] [address] [place] [address], [place] [address] Aug, [facility] [address] [id number] [address] [place] [address], [place] [address] Aug, [facility] [address] [id number] [address] [place] [address], [place] [address] Jul, [facility] [address] [id number] [address] [place] [address], [place] [address] Jul, [facility] [address] [id number] [address] [place] [address], [place] [address] Jul, [facility] [address] [id number] [address] [place] [address], [place] [address] Jul, [facility] [address] [id number] [address] [place] [address], [place] [address] Jul, [facility] [address] [id number] [address] [place] [address], [place] [address] Jul, [facility] [address] [id number] [address] [place] [address], [place] [address] Jun, [facility] [address] [id number] [address] [place] [address], [place] [address] Jun, [facility] [address] [id number] [address] [place] [address], [place] [address] Jun, [facility] [address] [id number] [address] [place] [address], [place] [address] Jun, [facility] [address] [id number] [address] [place] [address], [place] [address] Jun, [facility] [address] [id number] [address] [place] [address], [place] [address] Jun, [facility] [address] [id number] [address] [place] [address], [place] [address] Jun, [facility] [address] [id number] [address] [place] [address], [place] [address] Jun, [facility] [address] [id number] [address] [place] [address], [place] [address] 16 Jun, 2013 [facility] [address] [id number] [address] [place] [address], [place] [address] Jun, [facility] [address] [id number] [address] [place] [address], [place] [address] Jun, [facility] [address] [id number] [address] [place] [address], [place] [address] Jun, [facility] [address] [id number] [address] [place] [address], [place] [address] Jun, [facility] [address] [id number] [address] [place] [address], [place] [address] 30 May, 2013 [facility] [address] [id number] [address] [place] [address], [place] [address] 30 May, 2013 [facility] [address] [id number] [address] [place] [address], [place] [address] 30 May, 2013 [facility] [address] [id number] [address] [place] [address], [place] [address] 30 May, 2013 [facility] [address] [id number] [address] [place] [address], [place] [address] May, [facility] [address] [id number] [address] [place] [address], [place] [address] May, [facility] [address] [id number] [address] [place] [address], [place] [address] May, [facility] [address] [id number] [address] [place] [address], [place] [address] 12 May, 2013 [facility] [address] [id number] [address] [place] [address], [place] [address] 12 May, 2013 [facility] [address] [id number] [address] [place] [address], [place] [address] May, [facility] [address] [id number] [address] [place] [address], [place] [address] May, [facility] [address] [id number] [address] [place] [address], [place] [address] May, [facility] [address] [id number] [address] [place] [address], [place] [address] May, [facility] [address] [id number] [address] [place] [address], [place] [address] May, [facility] [address] [id number] [address] [place] [address], [place] [address] May, [facility] [address] [id number] [address] [place] [address], [place] [address] May, [facility] [address] [id number] [address] [place] [address], [place] [address] May, [facility] [address] [id number] [address] [place] [address], [place] [address] May, [facility] [address] [id number] [address] [place] [address], [place] [address] May, [facility] [address] [id number] [address] [place] [address], [place] [address] May, [facility] [address] [id number] [address] [place] [address], [place] [address] May, [facility] [address] [id number] [address] [place] [address], [place] [address] Apr, [facility] [address] [id number] [address] [place] [address], [place] [address] Apr, [facility] [address] [id number] [address] [place] [address], [place] [address] Apr, [facility] [address] [id number] [address] [place] [address], [place] [address] Apr, [facility] [address] [id number] [address] [place] [address], [place] [address] 08 Mar, 2013 [facility] [address] [id number] [address] [place] [address], [place] [address] 23 Feb, 2012 [facility] [address] [id number] [address] [place] [address], [place] [address] 16 Feb, 2012 [facility] [address] [id number] [address] [place] [address], [place] [address] 13 Feb, 2013 [facility] [address] [id number] [address] [place] [address], [place] [address] 10 Feb, 2013 [facility] [address] [id number] [address] [place] [address], [place] [id number] 09 Feb, 2013 [facility] [address] [id number] [address] [place] [address], [place] [address] 09 Feb, 2013 [facility] [address] [id number] [address] [place] [address], [place] [address] Jan, [facility] [address] [id number] [address] [place] [address], [place] [address] Jan, [facility] [address] [id number] [address] [place] [address], [place] [address] Jan, [facility] [address] [id number] [address] [place] [address], [place] [address] Dec, [facility] [address] [id number] [address] [place] [address], [place] [address] Dec, [facility] [address] [id number] [address] [place] [address], [place] [address] Dec, [facility] [address] [id number] [address] [place] [address], [place] [address] 15 Dec, 2012 [facility] [address] [id number] [address] [place] [address] [address] Dec, [facility] [address] [id number] [address] [place] [address], [place] [address] Nov, [facility] [address] [id number] [address] [place] [address], [place] [address] Nov, [facility] [address] [id number] [address] [place] [address], [place] [address] Nov, [facility] [address] [id number] [address] [place] [address], [place] [address] Nov, [facility] [address] [id number] [address] [place] [address], [place] [address] Nov, [facility] [address] [id number] [address] [place] [address], [place] [address] 08 Nov, 2012 [facility] [address] [id number] [address] [place] [address], [place] [address] Nov, [facility] [address] [id number] [address] [place] [address], [place] [address] Nov, [facility] [address] [id number] [address] [place] [address], [place] [address] 05 Nov, 2012 [facility] [address] [id number] [address] [place] [address], [place] [address] Nov, [facility] [address] [id number] [address] [place] [address], [place] [address] October, [facility] [address] [id number] [address] [place] [address], [place] [address] October, [facility] [address] [id number] [address] [place] [address], [place] [address] Sep, [facility] [address] [id number] [address] [place] [address], [place] [address] Sep, [facility] [address] [id number] [address] [place] [address], [place] [address] Sep, [facility] [address] [id number] [address] [place] [address], [place] [address] 06 Sep, 2012 [facility] [address] [id number] [address] [place] [address], [place] [address] Sep, [facility] [address] [id number] [address] [place] [address], [place] [address] Aug, [facility] [address] [id number] [address] [place] [address], [place] [address] Aug, [facility] [address] [id number] [address] [place] [address], [place] [address] Jul, [facility] [address] [id number] [address] [place] [address], [place] [address] Jul, [facility] [address] [id number] [address] [place] [address], [place] [address] Jun, [facility] [address] [id number] [address] [place] [address], [place] [address] Jun, [facility] [address] [id number] [address] [place] [address], [place] [address] May, [facility] [address] [id number] [address] [place] [address], [place] [address] May, [facility] [address] [id number] [address] [place] [address], [place] [address] May, [facility] [address] [id number] [address] [place] [address], [place] [address] May, [facility] [address] [id number] [address] [place] [address], [place] [address] Apr, [facility] [address] [id number] [address] [place] [address], [place] [address] Apr, [facility] [address] [id number] [address] [place] [address], [place] [address] Apr, [facility] [address] [id number] [address] [place] [address], [place] [address] Apr, [facility] [address] [id number] [address] [place] [address], [place] [address] Apr, [facility] [address] [id number] [address] [place] [address], [place] [address] Apr, [facility] [address] [id number] [address] [place] [address], [place] [address] Apr, [facility] [address] [id number] [address] [place] [address], [place] [address] Apr, [facility] [address] [id number] [address] [place] [address], [place] [address] Apr, [facility] [address] [id number] [address] [place] [address], [place] [address] Mar, [facility] [address] [id number] [address] [place] [address], [place] [address] Mar, [facility] [address] [id number] [address] [place] [address], [place] [address] Feb, [facility] [address] [id number] [address] [place] [address], [place] [address] Jan, [facility] [address] [id number] [address] [place] [address], [place] [address] Jan, [facility] [address] [id number] [address] [place] [address], [place] [address] Dec, [facility] [address] [id number] [address] [place] [id number] Nov, [facility] [address] [id number] [address] [place] [address], [place] [address] Nov, [facility] [address] [id number] [address] [place] [address], [place] [address] October, [facility] [address] [id number] [address] [place] [address], [place] [address] October, [facility] [address] [id number] [address] [place] [id number] Sep, [facility] [address] [id number] [address] [place] [address], [place] [address] Sep, [facility] [address] [id number] [address] [place] [id number] May, [facility] [address] [id number] [address] [place] [address], [place] [address] Apr, [facility] [address] [id number] [address] [place] [id number] Apr, [facility] [address] [id number] [address] [place] [address], [place] [address] Apr, [facility] [address] [id number] [address] [place] [id number] Apr, [facility] [address] [id number] [address] [place] [id number] Apr, [facility] [address] [id number] [address] [place] [address], [place] [address] Apr, [facility] [address] [id number] [address] [place] [id number] Apr, [facility] [address] [id number] [address] [place] [id number] Apr, [facility] [address] [id number] [address] [place] [id number] Mar, [facility] [address] [id number] [address] [place] [id number] Mar, [facility] [address] [id number] [address] [place] [id number] Mar, [facility] [address] [id number] [address] [place] [id number] Mar, [facility] [address] [id number] [address] [place] [address], [place] [id number] 19 Mar, 2010 [facility] [address] [id number] [address] [place] [id number] Mar, IMMUNIZATIONS No Known Immunizations SOCIAL HISTORY Never Assessed REASON FOR VISIT PLAN OF CARE VITAL SIGNS MEDICATIONS No [...]
--- OUTSIDE RECORDS SUMMARY | 2019-12-24 19:55 | XMS REPORT ---
Author Author Trey Lynn Organization [facility] Address [address] [place] [address] Care Team Providers Care Government Relations Analyst Name Role Phone MEGHA Lynn Unavailable PROBLEMS Type Condition ICD9-CM Code LRU46-ON Code Onset Dates Condition S tatus SNOMED Code Problem Nondependent 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 Ac tive 997452573 Problem Other chronic pain G89.29 Active 1 55826737 Problem Unspecified epilepsy without mention of intractable ep ilepsy G40.909 Active 10782430 Problem Hyperlipidemia, unspecified E78.5 Ac tive 61902440 Problem Hypertension I10 Active 9076716 3 Problem Esophageal reflux K21.9 Active 23 6262787 Problem Rheumatoid arthritis M06.9 Active 93698017 Problem Cough R05 Active 10255544 Problem Acquired hypothyroidism E03.9 Active 505111173 Problem Unspecified open-angle glaucoma, stage unspecified H40.10X0 Feb, Active 92024708 Problem Presbyopia H52.4 Active 57001646 Problem Insomnia G47.00 Active 382257861 Problem Arthralgia M25.50 Active 44144227 Problem Thyroid nodule E04.1 Active 97190 5005 Problem Anxiety disorder, unspecified F41.9 Active 940173932 Problem Chronic tension-type headache, intractable G44.221 Active 676309655 Problem Neuropathy G62.9 Active 502664097 Problem Goiter E04.9 Active 5176038 Problem Multinodular goiter E04.2 Active 821309191 Problem Carpal tunnel syndrome of left wrist G56.02 Active 281943052730650 Problem Chronic obstructive pulmonary disease, unspecified COPD ty pe J44.9 Active 44451704 Problem BMI 40.0-44.9, adult Z68.41 Active 060228734 Problem Seasonal allergic rhinitis due to pollen J30.1 Active 91739687 Problem Depression F32.9 Active 79134444 Problem Essential hypertension I10 Active 55452671 Problem Depressive disorder F32.9 Active 83291973 Problem Right-sided low back pain without sciatica M54.5 Active 988041950 Problem Reactive airway disease with out complication, unspecified asthma severity, unspecified whether persistent J45.909 Active 328277846934 Problem Urge incontinence of urine N39.41 Act chen 87035067 Problem Abnormal laboratory test R89.9 Activ e 996376935 Problem COPD with exacerbation J44.1 Active 152953374 ALLERGIES No Information ENCOUNTERS Encounter Location Date Diagnosis [place] [address] [address] Feb, [facility] [place] [address] [address] Jan, Bronchitis J40 [place] [address] [address] October, Acquired hypothyroidism E03. 9 [place] [address] [address] October, Acute gastritis without hemo rrhage, unspecified gastritis type K29.00 ; Epigastric pain R10.13 ; Essential hypertension I10 ; Screening for colon cancer Z12.11 and BMI 40.0-44.9, adult Z68.41 [place] [address] [address] October, [facility] [place] [address] [address] October, Chest pain R07.9 and Morbid obesity E66.01 [facility] [place] [address] [address] Sep, Generalized abdominal pain R 10.84 ; Morbid obesity E66.01 ; Non-intractable vomiting with nausea, unspecified vomiting type R11.2 and Seasonal allergic rhinitis due to pollen J30.1 [facility] [place] [address] [address] Jul, COPD with exacerbation J44.1 ; Viral upper respiratory tract infection J06.9 and Morbid obesity E66.01 [facility] [address] [facility] [id number] [address] [place] [address] Jun, Viral upper respiratory trac t infection J06.9 [facility] [address] [facility] [id number] [address] [place] [address] Apr, Abnormal laboratory test R89 .9 [place] [address] [address] [facility] [id number] [address] [place] [address] Apr, Abnormal laboratory test R89 .9 [place] [address] [address] [facility] [id number] [address] [place] [address] Apr, Abnormal laboratory test R89 .9 [place] [address] [address] [place] [id number] [address] [place] [address] Apr, [place] [address] [address] [place] [id number] [address] [place] [address] Apr, [place] [address] [address] [place] [id number] [address] [place] [address] Apr, Nonintractable episodic head ache, unspecified headache type R51 ; Urge incontinence of urine N39.41 ; BMI 40.0-44.9, adult Z68.41 ; Myalgia M79.10 and Acute cystitis without hematuria N30.00 [place] [address] [address] [place] [id number] [address] [place] [address] Mar, Nasal congestion R09.81 ; Lo w back pain M54.5 ; Reactive airway disease without complication, unspecified asthma severity, unspecified whether persistent J45.909 ; Other chronic pain G89.29 ; Acute cystitis with hematuria N30.01 and BMI 40.0-44.9, adult Z68.41 [place] [id number] [address] [place] [address] Mar, Acute cystitis with hematuri a N30.01 [facility] [address] [place] [id number] [address] [place] [address] Mar, BMI 40.0-44.9, adult Z68.41 ; Acute cystitis with hematuria N30.01 ; Acute bilateral low back pain without sciatica M54.5 and Nausea R11.0 [place] [address] [address] Mar, Hypertension I10 ; Acquired hypothyroidism E03.9 ; Esophageal reflux K21.9 ; Chronic obstructive pulmonary disease, unspecified COPD type J44.9 and BMI 40.0-44.9, adult Z68.41 [place] [address] [address] Mar, Hypertension I10 [address] [address] Nov, Hyperlipidemia, unspecified E78.[address] [address] October, Chest pain, unspecified type R07.9 and Acquired hypothyroidism E03.9 [place] [address] [address] October, Chest pain, unspecified type R07.9 ; Family history of coronary artery disease Z82.49 ; Carpal tunnel syndrome of left wrist G56.02 ; Hypertension I10 ; Esophageal reflux K21.9 ; Arthralgia M25.50 ; Acquired hypothyroidism E03.9 ; Cough R05 ; Nausea R11.0 ; Weight gain R63.5 and BMI 45.0-49.9, adult Z68.42 [place] [address] [address] Jun, Acquired hypothyroidism E03. 9 and Cough R05 [address] [address] May, [address] [address] Feb, Tarsal tunnel syndrome of timi th lower extremities G57.53 and Neuropathy G62.9 [place] [address] [address] [facility] [id number] [address] [place] [address] Dec, Pleuritis R09.1 [place] [address] [address] [facility] [id number] [address] [place] [address] Nov, [place] [address] [address] [place] [id number] [address] [place] [address] October, Arthralgia, unspecified join t M25.50 and Allergy, initial encounter T78.40XA [place] [address] [address] [place] [id number] [address] [place] [address] October, [place] [address] [address] [place] [id number] [address] [place] [address] October, Acute recurrent maxillary si nusitis J01.01 and Arthralgia M25.50 [place] [address] [address] [place] [id number] [address] [place] [address] Sep, Pharyngitis due to other org anism J02.8 [place] [address] [address] [place] [id number] [address] [place] [address] Aug, Acute nasopharyngitis J00 [place] [address] [address] [place] [id number] [address] [place] [address] Aug, Multinodular goiter E04.2 [place] [address] [address] [place] [id number] [address] [place] [address] Aug, Thyroid nodule E04.1 [place] [address] [address] [place] [id number] [address] [place] [address] Jul, Tarsal tunnel syndrome of timi th lower extremities G57.53 [place] [address] [address] [place] [id number] [address] [place] [address] Jun, Pneumonia due to infectious organism, unspecified laterality, unspecified part of lung J18.9 [place] [address] [address] [place] [id number] [address] [place] [address] Jun, Bronchospasm with bronchitis , acute J20.9 [place] [address] [id number] [address] [place] [address] May, Acute non-recurrent frontal sinusitis J01.10 [place] [address] [address] May, Flat foot [pes planus] (acqu ired), left foot M21.42 ; Flat foot [pes planus] (acquired), right foot M21.41 and Neuropathy G62.9 [place] [address] [address] Apr, Chronic tension-type headach e, intractable G44.221 ; Right lower quadrant abdominal pain R10.31 ; Cervicalgia M54.2 ; Acute gastritis without hemorrhage, unspecified gastritis type K29.00 and Hypertension I10 [place] [address] [address] Mar, Depression F32.9 and Anxiety disorder, unspecified F41.9 [place] [address] [address] Feb, Depressive disorder F32.9 an d Anxiety disorder, unspecified F41.9 [place] [address] [address] Jan, Dysuria R30.0 ; Lower abdomi nal pain R10.30 ; Acute bilateral low back pain without sciatica M54.5 ; Nausea and vomiting, unspecified intactability, vomiting of unspecified type R11.2 ; Pain in right foot M79.671 and Pain of left foot M79.672 [place] [address] [address] Dec, Urinary tract infection, sit e not specified N39.0 [place] [address] [address] [place] [id number] [place] [address] Dec, [place] [address] [address] Nov, [facility] [address] [address] Nov, Dysuria R30.0 [place] [address] [address] [place] [id number] [place] [address] Nov, Dysuria R30.0 and Acute cyst itis with hematuria N30.01 [facility] [address] [address] October, Nausea R11.0 [place] [address] [address] October, Thyroid nodule E04.1 ; Carpa l tunnel syndrome, left upper limb G56.02 ; Carpal tunnel syndrome, right upper limb G56.01 and Constipation, unspecified constipation type K59.00 [place] [address] [address] October, [place] [address] [address] October, Thyroid nodule E04.1 [place] [address] [address] October, Cold thyroid nodule E04.1 [place] [address] [address] October, [place] [address] [address] [place] [id number] [address] [place] [address] Sep, Thyroid nodule E04.1 [place] [address] [address] [place] [id number] [address] [place] [address] Sep, Thyroid nodule E04.1 [place] [address] [address] [place] [id number] [place] [address] Sep, Thyroid nodule E04.1 ; Hyper tension I10 ; Esophageal reflux K21.9 and Hyperlipidemia, unspecified E78.5 [place] [address] [place] [address] 14 Aug, 2015 Other chronic pain G89.29 ; Sinusitis J32.9 and Hypertension I10 [facility] [address] [place] [id number] [address] [place] [address] 29 Jul, 2015 [facility] [address] [place] [id number] [address] [place] [address] 15 Jul, 2015 [facility] [address] [address] 10 Jul, 2015 Insomnia G47.00 and Arthralg ia M25.50 [place] [address] [address] 10 Jul, 2015 Depressive disorder F32.9 an d Anxiety disorder, unspecified F41.9 [place] [address] [address] May, Right-sided low back pain wi thout sciatica M54.5 and Depression F32.9 [place] [address] [address] Apr, Hematuria R31.9 [place] [address] [address] Mar, Other chronic pain G89.29 [facility] [address] [place] [id number] [address] [place] [address] Mar, Other chronic pain G89.29 [facility] [address] [place] [id number] [address] [place] [address] 28 Feb, 2015 [place] [address] [address] 22 Feb, 2015 Other chronic pain 338.29 ; Dysuria 788.1 ; UTI (urinary tract infection) 599.0 ; Insomnia 780.52 ; Hot flashes 627.2 and Hypertension 401.9 [place] [address] [address] Feb, Dysuria 788.1 [facility] [address] [facility] [id number] [address] [place] [address] Feb, [facility] [address] [id number] [address] [place] [address] Jan, [facility] [address] [facility] [id number] [address] [place] [address] Jan, [facility] [address] [id number] [address] [place] [address] Jan, Fibromyalgia 729.1 ; Hyperte nsion 401.9 ; Dysthymia 300.4 and Hot flashes 627.2 [facility] [address] [id number] [address] [place] [address] Dec, [facility] [address] [facility] [id number] [address] [place] [address] Dec, [facility] [address] [id number] [address] [place] [address] Dec, [facility] [address] [facility] [id number] [address] [place] [address] Nov, Other chronic pain 338.29 [facility] [address] [id number] [address] [place] [address] October, [facility] [address] [id number] [address] [place] [address] October, [facility] [address] [id number] [address] [place] [address] Sep, [facility] [address] [id number] [address] [place] [address] Sep, [facility] [address] [facility] [id number] [address] [place] [address] Aug, [facility] [address] [facility] [id number] [address] [place] [address] Aug, [facility] [address] [id number] [address] [place] [address], [place] [address] Aug, [facility] [address] [id number] [address] [place] [address], [place] [address] Aug, [facility] [address] [id number] [address] [place] [address], [place] [address] Aug, [facility] [address] [id number] [address] [place] [address], [place] [address] Aug, [facility] [address] [id number] [address] [place] [address], [place] [address] Aug, [facility] [address] [id number] [address] [place] [address], [place] [address] Aug, [facility] [address] [id number] [address] [place] [address], [place] [address] Aug, [facility] [address] [id number] [address] [place] [address], [place] [address] Aug, [facility] [address] [id number] [address] [place] [address], [place] [address] Aug, [facility] [address] [id number] [address] [place] [address], [place] [address] Aug, [facility] [address] [id number] [address] [place] [address], [place] [address] Aug, [facility] [address] [id number] [address] [place] [address], [place] [address] Aug, [facility] [address] [id number] [address] [place] [address], [place] [address] Jul, [facility] [address] [id number] [address] [place] [address], [place] [address] Jul, [facility] [address] [id number] [address] [place] [address], [place] [address] Jul, [facility] [address] [id number] [address] [place] [address], [place] [address] Jul, [facility] [address] [id number] [address] [place] [address], [place] [address] Jul, [facility] [address] [id number] [address] [place] [address], [place] [address] Jul, [facility] [address] [id number] [address] [place] [address], [place] [address] Jun, [facility] [address] [id number] [address] [place] [address], [place] [address] Jun, [facility] [address] [id number] [address] [place] [address], [place] [address] Jun, [facility] [address] [id number] [address] [place] [address], [place] [address] Jun, [facility] [address] [id number] [address] [place] [address], [place] [address] May, [facility] [address] [id number] [address] [place] [address], [place] [address] May, [facility] [address] [id number] [address] [place] [address], [place] [address] May, [facility] [address] [id number] [address] [place] [address], [place] [address] May, [facility] [address] [id number] [address] [place] [address], [place] [address] May, [facility] [address] [id number] [address] [place] [address], [place] [address] May, [facility] [address] [id number] [address] [place] [address], [place] [address] May, [facility] [address] [id number] [address] [place] [address], [place] [address] May, [facility] [address] [id number] [address] [place] [address], [place] [address] May, [facility] [address] [id number] [address] [place] [address], [place] [address] May, [facility] [address] [id number] [address] [place] [address], [place] [address] Apr, [facility] [address] [id number] [address] [place] [address], [place] [address] Apr, [facility] [address] [id number] [address] [place] [address], [place] [address] Apr, [facility] [address] [id number] [address] [place] [address], [place] [address] Apr, [facility] [address] [id number] [address] [place] [address], [place] [address] Apr, [facility] [address] [id number] [address] [place] [address], [place] [address] Apr, [facility] [address] [id number] [address] [place] [address], [place] [address] Apr, [facility] [address] [id number] [address] [place] [address], [place] [address] Apr, [facility] [address] [id number] [address] [place] [address], [place] [address] Apr, [facility] [address] [id number] [address] [place] [address], [place] [address] Mar, [facility] [address] [id number] [address] [place] [address], [place] [address] Mar, [facility] [address] [id number] [address] [place] [address], [place] [address] Mar, [facility] [address] [id number] [address] [place] [address], [place] [address] Mar, [facility] [address] [id number] [address] [place] [address], [place] [address] Mar, [facility] [address] [id number] [address] [place] [address], [place] [address] Mar, [facility] [address] [id number] [address] [place] [address], [place] [address] 08 Mar, 2014 [facility] [address] [id number] [address] [place] [address], [place] [address] 08 Mar, 2014 [facility] [address] [id number] [address] [place] [address], [place] [address] 30 Feb, 2013 [facility] [address] [id number] [address] [place] [address], [place] [address] 30 Feb, 2013 [facility] [address] [id number] [address] [place] [address], [place] [address] 24 Feb, 2013 [facility] [address] [id number] [address] [place] [address], [place] [address] 24 Feb, 2013 [facility] [address] [id number] [address] [place] [address], [place] [address] 22 Feb, 2013 [facility] [address] [id number] [address] [place] [address], [place] [address] 22 Feb, 2013 [facility] [address] [id number] [address] [place] [address], [place] [address] 10 Feb, 2013 [facility] [address] [id number] [address] [place] [address], [place] [address] 10 Feb, 2013 [facility] [address] [id number] [address] [place] [address], [place] [address] 03 Feb, 2013 [facility] [address] [id number] [address] [place] [address], [place] [address] 03 Sep, 2013 [facility] [address] [id number] [address] [place] [address], [place] [address] Sep, 2013 [facility] [address] [id number] [address] [place] [address], [place] [address] 03 Sep, 2013 [facility] [address] [id number] [address] [place] [address], [place] [address] 03 Sep, 2013 [facility] [address] [id number] [address] [place] [address], [place] [address] Feb, [facility] [address] [id number] [address] [place] [address], [place] [address] Jan, [facility] [address] [id number] [address] [place] [address], [place] [address] Jan, [facility] [address] [id number] [address] [place] [address], [place] [address] Dec, [facility] [address] [id number] [address] [place] [address], [place] [address] Dec, [facility] [address] [id number] [address] [place] [address], [place] [address] Dec, [facility] [address] [id number] [address] [place] [address], [place] [address] Dec, [facility] [address] [id number] [address] [place] [address], [place] [id number] Dec, [facility] [address] [id number] [address] [place] [address], [place] [address] Dec, [facility] [address] [id number] [address] [place] [address], [place] [address] Dec, [facility] [address] [id number] [address] [place] [address], [place] [address] Dec, [facility] [address] [id number] [address] [place] [address], [place] [address] Dec, [facility] [address] [id number] [address] [place] [address], [place] [address] Dec, [facility] [address] [id number] [address] [place] [address], [place] [address] Dec, [facility] [address] [id number] [address] [place] [address], [place] [address] Dec, [facility] [address] [id number] [address] [place] [address], [place] [address] Dec, [facility] [address] [id number] [facility] [place] [address] Dec, 2013 [facility] [address] [id number] [facility] [place] [address] Dec, [facility] [address] [id number] [address] [place] [address], [place] [address] Dec, [facility] [address] [id number] [address] [place] [address], [place] [address] Dec, [facility] [address] [id number] [address] [place] [address], [place] [address] Dec, [facility] [address] [id number] [address] [place] [address], [place] [address] Dec, [facility] [address] [id number] [address] [place] [address], [place] [address] Nov, [facility] [address] [id number] [address] [place] [address], [place] [address] Nov, [facility] [address] [id number] [address] [place] [address], [place] [address] Nov, [facility] [address] [id number] [address] [place] [address], [place] [address] Nov, [facility] [address] [id number] [address] [place] [address], [place] [address] Nov, [facility] [address] [id number] [address] [place] [address], [place] [address] Nov, [facility] [address] [id number] [address] [place] [address], [place] [address] Nov, [facility] [address] [id number] [address] [place] [address], [place] [address] Nov, [facility] [address] [id number] [address] [place] [address], [place] [address] Nov, [facility] [facility] [address] [id number] [address] [place] [address], [place] [address] October, [facility] [address] [id number] [facility] [place] [address] October, [facility] [address] [id number] [address] [place] [address], [place] [address] October, [facility] [address] [id number] [address] [place] [address], [place] [address] October, [facility] [address] [id number] [address] [place] [address], [place] [address] October, [facility] [address] [id number] [address] [place] [address], [place] [address] October, [facility] [address] [id number] [address] [place] [address], [place] [address] October, [facility] [address] [id number] [address] [place] [address], [place] [address] October, [facility] [address] [id number] [address] [place] [address], [place] [address] Sep, [facility] [address] [id number] [address] [place] [address], [place] [address] Sep, [facility] [address] [id number] [address] [place] [address], [place] [address] Sep, [facility] [address] [id number] [address] [place] [address], [place] [address] Sep, [facility] [address] [id number] [address] [place] [address], [place] [address] Sep, [facility] [address] [id number] [address] [place] [address], [place] [address] Sep, [facility] [address] [id number] [address] [place] [address], [place] [address] Sep, [facility] [address] [id number] [address] [place] [address], [place] [address] Aug, [facility] [address] [id number] [address] [place] [address], [place] [address] Aug, [facility] [address] [id number] [address] [place] [address], [place] [address] Aug, [facility] [address] [id number] [address] [place] [address], [place] [address] Aug, [facility] [address] [id number] [address] [place] [address], [place] [address] Aug, [facility] [address] [id number] [address] [place] [address], [place] [address] Aug, [facility] [address] [id number] [address] [place] [address], [place] [address] Jul, [facility] [address] [id number] [address] [place] [address], [place] [address] Jul, [facility] [address] [id number] [address] [place] [address], [place] [address] Jul, [facility] [address] [id number] [address] [place] [address], [place] [address] Jul, [facility] [address] [id number] [address] [place] [address], [place] [address] Jul, [facility] [address] [id number] [address] [place] [address], [place] [address] Jul, [facility] [address] [id number] [address] [place] [address], [place] [address] Jun, [facility] [address] [id number] [address] [place] [address], [place] [address] Jun, [facility] [address] [id number] [address] [place] [address], [place] [address] Jun, [facility] [address] [id number] [address] [place] [address], [place] [address] Jun, [facility] [address] [id number] [address] [place] [address], [place] [address] Jun, [facility] [address] [id number] [address] [place] [address], [place] [address] Jun, [facility] [address] [id number] [address] [place] [address], [place] [address] Jun, [facility] [address] [id number] [address] [place] [address], [place] [address] Jun, [facility] [address] [id number] [address] [place] [address], [place] [address] Jun, [facility] [address] [id number] [address] [place] [address], [place] [address] Jun, [facility] [address] [id number] [address] [place] [address], [place] [address] Jun, [facility] [address] [id number] [address] [place] [address], [place] [address] Jun, [facility] [address] [id number] [address] [place] [address], [place] [address] Jun, [facility] [address] [id number] [address] [place] [address], [place] [address] 30 May, 2013 [facility] [address] [id number] [address] [place] [address], [place] [address] May, [facility] [address] [id number] [address] [place] [address], [place] [address] 30 May, 2013 [facility] [address] [id number] [address] [place] [address], [place] [address] 30 May, 2013 [facility] [address] [id number] [address] [place] [address], [place] [address] May, [facility] [address] [id number] [address] [place] [address], [place] [address] 14 May, 2013 [facility] [address] [id number] [address] [place] [address], [place] [address] 14 May, 2013 [facility] [address] [id number] [address] [place] [address] May, [facility] [address] [id number] [address] [place] [address], [place] [address] May, [facility] [address] [id number] [address] [place] [address], [place] [address] May, [facility] [address] [id number] [address] [place] [address], [place] [address] May, [facility] [address] [id number] [address] [place] [address], [place] [address] May, [facility] [address] [id number] [address] [place] [address], [place] [address] May, [facility] [address] [id number] [address] [place] [address], [place] [address] May, [facility] [address] [id number] [address] [place] [address], [place] [address] May, [facility] [address] [id number] [address] [place] [address], [place] [address] May, [facility] [address] [id number] [address] [place] [address], [place] [address] May, [facility] [address] [id number] [address] [place] [address], [place] [address] May, [facility] [address] [id number] [address] [place] [address], [place] [address] May, [facility] [address] [id number] [address] [place] [address], [place] [address] May, [facility] [address] [id number] [address] [place] [address], [place] [address] May, [facility] [address] [id number] [address] [place] [address], [place] [address] Apr, [facility] [address] [id number] [address] [place] [address], [place] [address] Apr, [facility] [address] [id number] [address] [place] [address], [place] [address] Apr, [facility] [address] [id number] [address] [place] [address], [place] [address] Apr, [facility] [address] [id number] [address] [place] [address], [place] [address] 08 Mar, 2013 [facility] [address] [id number] [address] [place] [address], [place] [address] 23 Feb, 2013 [facility] [address] [id number] [address] [place] [address], [place] [address] 16 Feb, 2013 [facility] [address] [id number] [address] [place] [address], [place] [address] 13 Feb, 2013 [facility] [address] [id number] [address] [place] [address], [place] [address] 10 Feb, 2013 [facility] [address] [id number] [address] [place] [address], [place] [address] 09 Feb, 2013 [facility] [address] [id number] [address] [place] [address], [place] [address] Feb, [facility] [address] [id number] [address] [place] [address], [place] [address] Jan, [facility] [address] [id number] [address] [place] [address], [place] [address] Jan, [facility] [address] [id number] [address] [place] [address], [place] [address] Jan, [facility] [address] [id number] [address] [place] [address], [place] [address] Dec, [facility] [address] [id number] [address] [place] [address], [place] [address] Dec, [facility] [address] [id number] [address] [place] [address], [place] [address] Dec, [facility] [address] [id number] [address] [place] [address] [address] 15 Dec, 2012 [facility] [address] [id number] [address] [place] [address], [place] [address] Dec, [facility] [address] [id number] [address] [place] [address], [place] [address] Nov, [facility] [address] [id number] [address] [place] [address], [place] [address] Nov, [facility] [address] [id number] [address] [place] [address], [place] [address] Nov, [facility] [address] [id number] [address] [place] [address], [place] [address] Nov, [facility] [address] [id number] [address] [place] [address], [place] [address] Nov, [facility] [address] [id number] [address] [place] [address], [place] [address] 08 Nov, 2012 [facility] [address] [id number] [address] [place] [address], [place] [address] 07 Nov, 2012 [facility] [address] [id number] [address] [place] [address], [place] [address] Nov, [facility] [address] [id number] [address] [place] [address], [place] [address] 05 Nov, 2012 [facility] [address] [id number] [address] [place] [address], [place] [address] Nov, [facility] [address] [id number] [address] [place] [address], [place] [address] October, [facility] [address] [id number] [address] [place] [address], [place] [address] October, [facility] [address] [id number] [address] [place] [address], [place] [address] Sep, [facility] [address] [id number] [address] [place] [address], [place] [address] Sep, [facility] [address] [id number] [address] [place] [address], [place] [address] 08 Sep, 2012 [facility] [address] [id number] [address] [place] [address], [place] [address] Sep, [facility] [address] [id number] [address] [place] [address], [place] [address] Sep, [facility] [address] [id number] [address] [place] [address], [place] [address] Aug, [facility] [address] [id number] [address] [place] [address], [place] [address] Aug, [facility] [address] [id number] [address] [place] [address], [place] [address] Jul, [facility] [address] [id number] [address] [place] [address], [place] [address] Jul, [facility] [address] [id number] [address] [place] [address], [place] [address] Jun, [facility] [address] [id number] [address] [place] [address], [place] [address] Jun, [facility] [address] [id number] [address] [place] [address], [place] [address] May, [facility] [address] [id number] [address] [place] [address], [place] [address] May, [facility] [address] [id number] [address] [place] [address], [place] [address] May, [facility] [address] [id number] [address] [place] [address], [place] [address] May, [facility] [address] [id number] [address] [place] [address], [place] [address] Apr, [facility] [address] [id number] [address] [place] [address], [place] [address] Apr, [facility] [address] [id number] [address] [place] [address], [place] [address] Apr, [facility] [address] [id number] [address] [place] [address], [place] [address] Apr, [facility] [address] [id number] [address] [place] [address], [place] [address] Apr, [facility] [address] [id number] [address] [place] [address], [place] [address] Apr, [facility] [address] [id number] [address] [place] [address], [place] [address] Apr, [facility] [address] [id number] [address] [place] [address], [place] [address] Apr, [facility] [address] [id number] [address] [place] [address], [place] [address] Apr, [facility] [address] [id number] [address] [place] [address], [place] [address] 15 Mar, 2012 [facility] [address] [id number] [address] [place] [address], [place] [address] Mar, [facility] [address] [id number] [address] [place] [address], [place] [address] Feb, [facility] [address] [id number] [address] [place] [address], [place] [address] Jan, [facility] [address] [id number] [address] [place] [address], [place] [address] Jan, [facility] [address] [id number] [address] [place] [address], [place] [address] Dec, [facility] [address] [id number] [address] [place] [address], [place] [address] Nov, [facility] [address] [id number] [address] [place] [address], [place] [address] Nov, [facility] [address] [id number] [address] [place] [address], [place] [address] October, [facility] [address] [id number] [address] [place] [address] October, [facility] [address] [id number] [address] [place] [address], [place] [address] Sep, [facility] [address] [id number] [address] [place] [address] Sep, [facility] [address] [id number] [address] [place] [address], [place] [address] May, [facility] [address] [id number] [address] [place] [address] Apr, [facility] [address] [id number] [address] [place] [address], [place] [address] Apr, [facility] [address] [id number] [address] [place] [address] Apr, [facility] [address] [id number] [address] [place] [address] Apr, [facility] [address] [id number] [address] [place] [address], [place] [address] Apr, [facility] [address] [id number] [address] [place] [address] Apr, [facility] [address] [id number] [address] [place] [address] Apr, [facility] [address] [id number] [address] [place] [address] Apr, [facility] [address] [id number] [address] [place] [address] Mar, [facility] [address] [id number] [address] [place] [address] Mar, [facility] [address] [id number] [address] [place] [address] Mar, [facility] [address] [id number] [address] [place] [address], [place] [address] Mar, [facility] [address] [id number] [place] [address] Mar[facility] [address] [facility] [id number] [address] [place] [address] Mar, IMMUNIZATIONS No Known Immunizations SOCIAL HISTORY [...] Stomach surgeryx3 Hospitalization History Mental floor at [facility]
--- OUTSIDE RECORDS SUMMARY | 2019-12-24 19:56 | XMS REPORT ---
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 Operator Name Role Phone SURESH ANDRADE Unavailable PROBLEMS Type Condition ICD9-CM Code LKL56-QF Code Onset Dates Condition S tatus SNOMED Code Problem Nondependent 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 Ac tive 107935313 Problem Other chronic pain G89.29 Active 1 53687889 Problem Unspecified epilepsy without mention of intractable ep ilepsy G40.909 Active 54915228 Problem Hyperlipidemia, unspecified E78.5 Ac tive 26408094 Problem Hypertension I10 Active 9887744 3 Problem Esophageal reflux K21.9 Active 23 0104576 Problem Rheumatoid arthritis M06.9 Active 56557720 Problem Cough R05 Active 37693267 Problem Acquired hypothyroidism E03.9 Active 209259701 Problem Unspecified open-angle glaucoma, stage unspecified H40.10X0 Feb, Active 86530341 Problem Presbyopia H52.4 Active 99870368 Problem Insomnia G47.00 Active 113172503 Problem Arthralgia M25.50 Active 72781730 Problem Thyroid nodule E04.1 Active 21674 5005 Problem Anxiety disorder, unspecified F41.9 Active 859483411 Problem Chronic tension-type headache, intractable G44.221 Active 825342837 Problem Neuropathy G62.9 Active 784919364 Problem Goiter E04.9 Active 3048979 Problem Multinodular goiter E04.2 Active 635198340 Problem Carpal tunnel syndrome of left wrist G56.02 Active 281526461672135 Problem Chronic obstructive pulmonary disease, unspecified COPD ty pe J44.9 Active 77471816 Problem BMI 40.0-44.9, adult Z68.41 Active 620616675 Problem Seasonal allergic rhinitis due to pollen J30.1 Active 23664170 Problem Depression F32.9 Active 43853733 Problem Essential hypertension I10 Active 27693146 Problem Depressive disorder F32.9 Active 08908608 Problem Right-sided low back pain without sciatica M54.5 Active 746336447 Problem Reactive airway disease with out complication, unspecified asthma severity, unspecified whether persistent J45.909 Active 686211203489 Problem Urge incontinence of urine N39.41 Act chen 50317523 Problem Abnormal laboratory test R89.9 Activ e 300648225 Problem COPD with exacerbation J44.1 Active 934822274 ALLERGIES No Information ENCOUNTERS Encounter Location Date Diagnosis [facility] [address] [address] Jan, Bronchitis J40 [place] [address] [address] October, Acquired hypothyroidism E03. 9 [place] [address] [address] October, Acute gastritis without hemo rrhage, unspecified gastritis type K29.00 ; Epigastric pain R10.13 ; Essential hypertension I10 ; Screening for colon cancer Z12.11 and BMI 40.0-44.9, adult Z68.41 [place] [address] [address] October, [facility] [place] [address] [address] October, Chest pain R07.9 and Morbid obesity E66.01 [facility] [place] [address] [address] Sep, Generalized abdominal pain R 10.84 ; Morbid obesity E66.01 ; Non-intractable vomiting with nausea, unspecified vomiting type R11.2 and Seasonal allergic rhinitis due to pollen J30.1 [facility] [place] [address] [address] Jul, COPD with exacerbation J44.1 ; Viral upper respiratory tract infection J06.9 and Morbid obesity E66.01 [facility] [place] [address] [address] Jun, Viral upper respiratory trac t infection J06.9 [facility] [address] [facility] [id number] [address] [place] [address] Apr, Abnormal laboratory test R89 .9 [facility] [address] [facility] [id number] [address] [place] [address] Apr, Abnormal laboratory test R89 .9 [facility] [address] [facility] [id number] [address] [place] [address] Apr, Abnormal laboratory test R89 .9 [facility] [address] [facility] [id number] [address] [place] [address] Apr, [place] [address] [address] [facility] [id number] [address] [place] [address] Apr, [place] [address] [address] [place] [id number] [address] [place] [address] Apr, Nonintractable episodic head ache, unspecified headache type R51 ; Urge incontinence of urine N39.41 ; BMI 40.0-44.9, adult Z68.41 ; Myalgia M79.10 and Acute cystitis without hematuria N30.00 [facility] [address] [place] [id number] [address] [place] [address] Mar, Nasal congestion R09.81 ; Lo w back pain M54.5 ; Reactive airway disease without complication, unspecified asthma severity, unspecified whether persistent J45.909 ; Other chronic pain G89.29 ; Acute cystitis with hematuria N30.01 and BMI 40.0-44.9, adult Z68.41 [facility] [address] [facility] [id number] [address] [place] [address] Mar, Acute cystitis with hematuri a N30.01 [facility] [address] [facility] [id number] [address] [place] [address] Mar, BMI 40.0-44.9, adult Z68.41 ; Acute cystitis with hematuria N30.01 ; Acute bilateral low back pain without sciatica M54.5 and Nausea R11.0 [place] [address] [address] Mar, Hypertension I10 ; Acquired hypothyroidism E03.9 ; Esophageal reflux K21.9 ; Chronic obstructive pulmonary disease, unspecified COPD type J44.9 and BMI 40.0-44.9, adult Z68.41 [place] [address] [address] Mar, Hypertension I10 [place] [address] [address] Nov, Hyperlipidemia, unspecified E78.5 [place] [address] [address] October, Chest pain, unspecified type R07.9 and Acquired hypothyroidism E03.9 [place] [address] [address] October, Chest pain, unspecified type R07.9 ; Family history of coronary artery disease Z82.49 ; Carpal tunnel syndrome of left wrist G56.02 ; Hypertension I10 ; Esophageal reflux K21.9 ; Arthralgia M25.50 ; Acquired hypothyroidism E03.9 ; Cough R05 ; Nausea R11.0 ; Weight gain R63.5 and BMI 45.0-49.9, adult Z68.42 [place] [address] [address] Jun, Acquired hypothyroidism E03. 9 and Cough R05 [place] [address] [address] May, [address] [address] Feb, Tarsal tunnel syndrome of timi th lower extremities G57.53 and Neuropathy G62.9 [place] [address] [address] Dec, Pleuritis R09.1 [place] [id number] [place] [address] Nov, [place] [address] [address] [place] [id number] [address] [place] [address] October, Arthralgia, unspecified join t M25.50 and Allergy, initial encounter T78.40XA [place] [address] [address] [place] [id number] [address] [place] [address] October, [place] [address] [address] October, Acute recurrent maxillary si nusitis J01.01 and Arthralgia M25.50 [place] [address] [address] [place] [id number] [address] [place] [address] Sep, Pharyngitis due to other org anism J02.8 [place] [address] [address] Aug, Acute nasopharyngitis J00 [place] [address] [address] Aug, Multinodular goiter E04.2 [place] [address] [address] [place] [id number] [address] [place] [address] Aug, Thyroid nodule E04.1 [place] [address] [address] [place] [id number] [address] [place] [address] Jul, Tarsal tunnel syndrome of timi th lower extremities G57.53 [place] [address] [address] [place] [id number] [address] [place] [address] Jun, Pneumonia due to infectious organism, unspecified laterality, unspecified part of lung J18.9 [place] [address] [address] [place] [id number] [address] [place] [address] Jun, Bronchospasm with bronchitis , acute J20.9 [place] [address] [address] [place] [id number] [address] [place] [address] May, Acute non-recurrent frontal sinusitis J01.10 [place] [address] [address] May, Flat foot [pes planus] (acqu ired), left foot M21.42 ; Flat foot [pes planus] (acquired), right foot M21.41 and Neuropathy G62.9 [place] [address] [address] Apr, Chronic tension-type headach e, intractable G44.221 ; Right lower quadrant abdominal pain R10.31 ; Cervicalgia M54.2 ; Acute gastritis without hemorrhage, unspecified gastritis type K29.00 and Hypertension I10 [place] [address] [address] Mar, Depression F32.9 and Anxiety disorder, unspecified F41.9 [place] [address] [address] Feb, Depressive disorder F32.9 an d Anxiety disorder, unspecified F41.9 [place] [address] [address] Jan, Dysuria R30.0 ; Lower abdomi nal pain R10.30 ; Acute bilateral low back pain without sciatica M54.5 ; Nausea and vomiting, unspecified intactability, vomiting of unspecified type R11.2 ; Pain in right foot M79.671 and Pain of left foot M79.672 [place] [address] [address] Dec, Urinary tract infection, sit e not specified N39.0 [place] [address] [address] Dec, [place] [address] [address] Nov, [place] [address] [address] Nov, Dysuria R30.0 [place] [address] [facility] [id number] [address] [place] [address] Nov, Dysuria R30.0 and Acute cyst itis with hematuria N30.01 [place] [address] [address] [place] [id number] [address] [place] [address] October, Nausea R11.0 [place] [address] [address] [place] [id number] [place] [address] October, Thyroid nodule E04.1 ; Carpa l tunnel syndrome, left upper limb G56.02 ; Carpal tunnel syndrome, right upper limb G56.01 and Constipation, unspecified constipation type K59.00 [place] [address] [address] [place] [id number] [address] [place] [address] October, [place] [address] [address] October, Thyroid nodule E04.1 [place] [address] [address] [place] [id number] [address] [place] [address] October, Cold thyroid nodule E04.1 [place] [address] [address] [place] [id number] [address] [place] [address] October, [place] [address] [address] [place] [id number] [address] [place] [address] Sep, Thyroid nodule E04.1 [place] [address] [address] [place] [id number] [address] [place] [address] Sep, Thyroid nodule E04.1 [place] [address] [address] [place] [id number] [address] [place] [address] Sep, Thyroid nodule E04.1 ; Hyper tension I10 ; Esophageal reflux K21.9 and Hyperlipidemia, unspecified E78.5 [place] [id number] [address] [place] [address] Aug, Other chronic pain G89.29 ; Sinusitis J32.9 and Hypertension I10 [facility] [address] [address] 29 Jul, 2015 [facility] [address] [address] 15 Jul, 2015 [facility] [address] [address] 10 Jul, 2015 Insomnia G47.00 and Arthralg ia M25.50 [facility] [address] [address] 10 Jul, 2015 Depressive disorder F32.9 an d Anxiety disorder, unspecified F41.9 [place] [address] [address] May, Right-sided low back pain wi thout sciatica M54.5 and Depression F32.9 [place] [address] [address] Apr, Hematuria R31.9 [place] [address] [address] Mar, Other chronic pain G89.29 [place] [address] [address] 12 Mar, 2015 Other chronic pain G89.29 [place] [address] [address] 28 Feb, 2015 [place] [address] [address] 22 Feb, 2015 Other chronic pain 338.29 ; Dysuria 788.1 ; UTI (urinary tract infection) 599.0 ; Insomnia 780.52 ; Hot flashes 627.2 and Hypertension 401.9 [place] [address] [place] [id number] [address] [place] [address] 14 Feb, 2015 Dysuria 788.1 [place] [address] [address] Feb, [facility] [address] [id number] [address] [place] [address] Jan, [facility] [address] [id number] [address] [place] [address] Jan, [facility] [address] [id number] [address] [place] [address] Jan, Fibromyalgia 729.1 ; Hyperte nsion 401.9 ; Dysthymia 300.4 and Hot flashes 627.2 [facility] [address] [id number] [address] [place] [address] Dec, [facility] [address] [id number] [address] [place] [address] Dec, [facility] [address] [id number] [address] [place] [address] Dec, [facility] [address] [id number] [address] [place] [address] Nov, Other chronic pain 338.29 [facility] [address] [id number] [address] [place] [address] October, [facility] [address] [id number] [address] [place] [address] October, [facility] [address] [id number] [address] [place] [address] Sep, [facility] [address] [id number] [address] [place] [address] Sep, [facility] [address] [id number] [address] [place] [address] Aug, [facility] [address] [id number] [address] [place] [address] Aug, [facility] [address] [id number] [address] [place] [address] Aug, [facility] [address] [id number] [address] [place] [address], [place] [address] Aug, [facility] [address] [id number] [address] [place] [address], [place] [address] Aug, [facility] [address] [id number] [address] [place] [address], [place] [address] Aug, [facility] [address] [id number] [address] [place] [address], [place] [address] Aug, [facility] [address] [id number] [address] [place] [address], [place] [address] Aug, [facility] [address] [id number] [address] [place] [address], [place] [address] Aug, [facility] [address] [id number] [address] [place] [address], [place] [address] Aug, [facility] [address] [id number] [address] [place] [address], [place] [address] Aug, [facility] [address] [id number] [address] [place] [address], [place] [address] Aug, [facility] [address] [id number] [address] [place] [address], [place] [address] Aug, [facility] [address] [id number] [address] [place] [address], [place] [address] Aug, [facility] [address] [id number] [address] [place] [address], [place] [address] Jul, 2014 [facility] [address] [id number] [address] [place] [address], [place] [address] Jul, [facility] [address] [id number] [address] [place] [address], [place] [address] Jul, [facility] [address] [id number] [address] [place] [address], [place] [address] Jul, 2014 [facility] [address] [id number] [address] [place] [address], [place] [address] Jul, [facility] [address] [id number] [address] [place] [address], [place] [address] Jul, [facility] [address] [id number] [address] [place] [address], [place] [address] Jun, [facility] [address] [id number] [address] [place] [address], [place] [address] Jun, [facility] [address] [id number] [address] [place] [address], [place] [address] Jun, [facility] [address] [id number] [address] [place] [address], [place] [address] Jun, [facility] [address] [id number] [address] [place] [address], [place] [address] May, [facility] [address] [id number] [address] [place] [address], [place] [address] May, [facility] [address] [id number] [address] [place] [address], [place] [address] May, [facility] [address] [id number] [address] [place] [address], [place] [address] May, [facility] [address] [id number] [address] [place] [address], [place] [address] May, [facility] [address] [id number] [address] [place] [address], [place] [address] May, [facility] [address] [id number] [address] [place] [address], [place] [address] May, [facility] [address] [id number] [address] [place] [address], [place] [address] May, [facility] [address] [id number] [address] [place] [address], [place] [address] May, [facility] [address] [id number] [address] [place] [address], [place] [address] May, [facility] [address] [id number] [address] [place] [address], [place] [address] Apr, [facility] [address] [id number] [address] [place] [address], [place] [address] Apr, [facility] [address] [id number] [address] [place] [address], [place] [address] Apr, [facility] [address] [id number] [address] [place] [address], [place] [address] Apr, [facility] [address] [id number] [address] [place] [address], [place] [address] Apr, [facility] [address] [id number] [address] [place] [address], [place] [address] Apr, [facility] [address] [id number] [address] [place] [address], [place] [address] Apr, [facility] [address] [id number] [address] [place] [address], [place] [address] Apr, [facility] [address] [id number] [address] [place] [address], [place] [address] Apr, [facility] [address] [id number] [address] [place] [address], [place] [address] Mar, [facility] [address] [id number] [address] [place] [address], [place] [address] Mar, [facility] [address] [id number] [address] [place] [address], [place] [address] Mar, [facility] [address] [id number] [address] [place] [address], [place] [address] Mar, [facility] [address] [id number] [address] [place] [address], [place] [address] Mar, [facility] [address] [id number] [address] [place] [address], [place] [address] Mar, [facility] [address] [id number] [address] [place] [address], [place] [address] Mar, [facility] [address] [id number] [address] [place] [address], [place] [address] 08 Mar, 2013 [facility] [address] [id number] [address] [place] [address], [place] [address] 30 Feb, 2013 [facility] [address] [id number] [address] [place] [address], [place] [address] 30 Sep, 2013 [facility] [address] [id number] [address] [place] [address], [place] [address] 24 Feb, 2013 [facility] [address] [id number] [address] [place] [address], [place] [address] 24 Feb, 2013 [facility] [address] [id number] [address] [place] [address], [place] [address] 22 Feb, 2013 [facility] [address] [id number] [address] [place] [address], [place] [address] 22 Feb, 2013 [facility] [address] [id number] [address] [place] [address], [place] [address] 10 Feb, 2013 [facility] [address] [id number] [address] [place] [address], [place] [address] 10 Feb, 2013 [facility] [address] [id number] [address] [place] [address], [place] [address] 03 Feb, 2013 [facility] [address] [id number] [address] [place] [address], [place] [address] 03 Sep, 2013 [facility] [address] [id number] [address] [place] [address], [place] [address] 03 Sep, 2013 [facility] [address] [id number] [address] [place] [address], [place] [address] 03 Sep, 2013 [facility] [address] [id number] [address] [place] [address], [place] [address] 03 Sep, 2013 [facility] [address] [id number] [address] [place] [address], [place] [address] 03 Sep, 2013 [facility] [address] [id number] [address] [place] [address], [place] [address] Jan, [facility] [address] [id number] [address] [place] [address], [place] [address] Jan, [facility] [address] [id number] [address] [place] [address], [place] [address] Dec, [facility] [address] [id number] [address] [place] [address], [place] [address] Dec, [facility] [address] [id number] [address] [place] [address], [place] [address] Dec, [facility] [address] [id number] [address] [place] [address], [place] [address] Dec, [facility] [address] [id number] [address] [place] [address], [place] [id number] Dec, [facility] [address] [id number] [address] [place] [address], [place] [address] Dec, [facility] [address] [id number] [address] [place] [address], [place] [address] Dec, [facility] [address] [id number] [address] [place] [address], [place] [address] Dec, [facility] [address] [id number] [address] [place] [address], [place] [address] Dec, [facility] [address] [id number] [address] [place] [address], [place] [address] Dec, [facility] [address] [id number] [address] [place] [address], [place] [address] Dec, [facility] [address] [id number] [address] [place] [address], [place] [address] Dec, [facility] [address] [id number] [address] [place] [address], [place] [address] Dec, [facility] [address] [id number] [address] [place] [address], [place] [address] Dec, [facility] [address] [id number] [address] [place] [address] Dec, [facility] [address] [id number] [facility] [place] [address] Dec, [facility] [address] [id number] [facility] [place] [address] Dec, [facility] [address] [id number] [address] [place] [address], [place] [address] Dec, [facility] [address] [id number] [address] [place] [address], [place] [address] Dec, [facility] [address] [id number] [address] [place] [address], [place] [address] Nov, [facility] [address] [id number] [address] [place] [address], [place] [address] Nov, [facility] [address] [id number] [address] [place] [address], [place] [address] Nov, [facility] [address] [id number] [address] [place] [address], [place] [address] Nov, [facility] [address] [id number] [address] [place] [address], [place] [address] Nov, [facility] [address] [id number] [address] [place] [address], [place] [address] Nov, [facility] [address] [id number] [address] [place] [address], [place] [address] Nov, [facility] [address] [id number] [address] [place] [address], [place] [address] Nov, [facility] [address] [id number] [address] [place] [address], [place] [address] Nov, [facility] [address] [id number] [address] [place] [address], [place] [address] October, [facility] [address] [id number] [address] [place] [address], [place] [address] October, [facility] [address] [id number] [facility] [place] [address] October, [facility] [address] [id number] [address] [place] [address], [place] [address] October, [facility] [address] [id number] [address] [place] [address], [place] [address] October, [facility] [address] [id number] [address] [place] [address], [place] [address] October, [facility] [address] [id number] [address] [place] [address], [place] [address] October, [facility] [address] [id number] [address] [place] [address], [place] [address] October, [facility] [address] [id number] [address] [place] [address], [place] [address] Sep, [facility] [address] [id number] [address] [place] [address], [place] [address] Sep, [facility] [address] [id number] [address] [place] [address], [place] [address] Sep, [facility] [address] [id number] [address] [place] [address], [place] [address] Sep, [facility] [address] [id number] [address] [place] [address], [place] [address] Sep, [facility] [address] [id number] [address] [place] [address], [place] [address] Sep, [facility] [address] [id number] [address] [place] [address], [place] [address] Sep, [facility] [address] [id number] [address] [place] [address], [place] [address] Aug, [facility] [address] [id number] [address] [place] [address], [place] [address] Aug, [facility] [address] [id number] [address] [place] [address], [place] [address] Aug, [facility] [address] [id number] [address] [place] [address], [place] [address] Aug, [facility] [address] [id number] [address] [place] [address], [place] [address] Aug, [facility] [address] [id number] [address] [place] [address], [place] [address] Aug, [facility] [address] [id number] [address] [place] [address], [place] [address] Jul, [facility] [address] [id number] [address] [place] [address], [place] [address] Jul, [facility] [address] [id number] [address] [place] [address], [place] [address] Jul, [facility] [address] [id number] [address] [place] [address], [place] [address] Jul, [facility] [address] [id number] [address] [place] [address], [place] [address] Jul, [facility] [address] [id number] [address] [place] [address], [place] [address] Jul, [facility] [address] [id number] [address] [place] [address], [place] [address] Jun, [facility] [address] [id number] [address] [place] [address], [place] [address] Jun, [facility] [address] [id number] [address] [place] [address], [place] [address] Jun, [facility] [address] [id number] [address] [place] [address], [place] [address] Jun, [facility] [address] [id number] [address] [place] [address], [place] [address] Jun, [facility] [address] [id number] [address] [place] [address], [place] [address] Jun, [facility] [address] [id number] [address] [place] [address], [place] [address] Jun, [facility] [address] [id number] [address] [place] [address], [place] [address] Jun, [facility] [address] [id number] [address] [place] [address], [place] [address] 16 Jun, 2013 [facility] [address] [id number] [address] [place] [address], [place] [address] Jun, [facility] [address] [id number] [address] [place] [address], [place] [address] Jun, [facility] [address] [id number] [address] [place] [address], [place] [address] Jun, [facility] [address] [id number] [address] [place] [address], [place] [address] Jun, [facility] [address] [id number] [address] [place] [address], [place] [address] 30 May, 2013 [facility] [address] [id number] [address] [place] [address], [place] [address] 30 May, 2013 [facility] [address] [id number] [address] [place] [address], [place] [address] 30 May, 2013 [facility] [address] [id number] [address] [place] [address], [place] [address] 30 May, 2013 [facility] [address] [id number] [address] [place] [address], [place] [address] May, [facility] [address] [id number] [address] [place] [address], [place] [address] May, [facility] [address] [id number] [address] [place] [address], [place] [address] May, [facility] [address] [id number] [address] [place] [address], [place] [address] 12 May, 2013 [facility] [address] [id number] [address] [place] [address], [place] [address] 12 May, 2013 [facility] [address] [id number] [address] [place] [address], [place] [address] May, [facility] [address] [id number] [address] [place] [address], [place] [address] May, [facility] [address] [id number] [address] [place] [address], [place] [address] May, [facility] [address] [id number] [address] [place] [address], [place] [address] May, [facility] [address] [id number] [address] [place] [address], [place] [address] May, [facility] [address] [id number] [address] [place] [address], [place] [address] May, [facility] [address] [id number] [address] [place] [address], [place] [address] May, [facility] [address] [id number] [address] [place] [address], [place] [address] May, [facility] [address] [id number] [address] [place] [address], [place] [address] May, [facility] [address] [id number] [address] [place] [address], [place] [address] May, [facility] [address] [id number] [address] [place] [address], [place] [address] May, [facility] [address] [id number] [address] [place] [address], [place] [address] May, [facility] [address] [id number] [address] [place] [address], [place] [address] Apr, [facility] [address] [id number] [address] [place] [address], [place] [address] Apr, [facility] [address] [id number] [address] [place] [address], [place] [address] Apr, [facility] [address] [id number] [address] [place] [address], [place] [address] Apr, [facility] [address] [id number] [address] [place] [address], [place] [address] 08 Mar, 2013 [facility] [address] [id number] [address] [place] [address], [place] [address] 23 Feb, 2012 [facility] [address] [id number] [address] [place] [address], [place] [address] 16 Feb, 2012 [facility] [address] [id number] [address] [place] [address], [place] [address] 13 Feb, 2013 [facility] [address] [id number] [address] [place] [address], [place] [address] 10 Feb, 2013 [facility] [address] [id number] [address] [place] [address], [place] [address] 09 Feb, 2013 [facility] [address] [id number] [address] [place] [address], [place] [address] 09 Feb, 2013 [facility] [address] [id number] [address] [place] [address], [place] [address] Jan, [facility] [address] [id number] [address] [place] [address], [place] [address] Jan, [facility] [address] [id number] [address] [place] [address], [place] [address] Jan, [facility] [address] [id number] [address] [place] [address], [place] [address] Dec, [facility] [address] [id number] [address] [place] [address], [place] [address] Dec, [facility] [address] [id number] [address] [place] [address], [place] [address] Dec, [facility] [address] [id number] [address] [place] [address], [place] [address] 15 Dec, 2012 [facility] [address] [id number] [address] [place] [address] [address] Dec, [facility] [address] [id number] [address] [place] [address], [place] [address] Nov, [facility] [address] [id number] [address] [place] [address], [place] [address] Nov, [facility] [address] [id number] [address] [place] [address], [place] [address] Nov, [facility] [address] [id number] [address] [place] [address], [place] [address] Nov, [facility] [address] [id number] [address] [place] [address], [place] [address] Nov, [facility] [address] [id number] [address] [place] [address], [place] [address] 08 Nov, 2012 [facility] [address] [id number] [address] [place] [address], [place] [address] Nov, [facility] [address] [id number] [address] [place] [address], [place] [address] Nov, [facility] [address] [id number] [address] [place] [address], [place] [address] 05 Nov, 2012 [facility] [address] [id number] [address] [place] [address], [place] [address] Nov, [facility] [address] [id number] [address] [place] [address], [place] [address] October, [facility] [address] [id number] [address] [place] [address], [place] [address] October, [facility] [address] [id number] [address] [place] [address], [place] [address] Sep, [facility] [address] [id number] [address] [place] [address], [place] [address] Sep, [facility] [address] [id number] [address] [place] [address], [place] [address] Sep, [facility] [address] [id number] [address] [place] [address], [place] [address] 06 Sep, 2012 [facility] [address] [id number] [address] [place] [address], [place] [address] Sep, [facility] [address] [id number] [address] [place] [address], [place] [address] Aug, [facility] [address] [id number] [address] [place] [address], [place] [address] Aug, [facility] [address] [id number] [address] [place] [address], [place] [address] Jul, [facility] [address] [id number] [address] [place] [address], [place] [address] Jul, [facility] [address] [id number] [address] [place] [address], [place] [address] Jun, [facility] [address] [id number] [address] [place] [address], [place] [address] Jun, [facility] [address] [id number] [address] [place] [address], [place] [address] May, [facility] [address] [id number] [address] [place] [address], [place] [address] May, [facility] [address] [id number] [address] [place] [address], [place] [address] May, [facility] [address] [id number] [address] [place] [address], [place] [address] May, [facility] [address] [id number] [address] [place] [address], [place] [address] Apr, [facility] [address] [id number] [address] [place] [address], [place] [address] Apr, [facility] [address] [id number] [address] [place] [address], [place] [address] Apr, [facility] [address] [id number] [address] [place] [address], [place] [address] Apr, [facility] [address] [id number] [address] [place] [address], [place] [address] Apr, [facility] [address] [id number] [address] [place] [address], [place] [address] Apr, [facility] [address] [id number] [address] [place] [address], [place] [address] Apr, [facility] [address] [id number] [address] [place] [address], [place] [address] Apr, [facility] [address] [id number] [address] [place] [address], [place] [address] Apr, [facility] [address] [id number] [address] [place] [address], [place] [address] Mar, [facility] [address] [id number] [address] [place] [address], [place] [address] Mar, [facility] [address] [id number] [address] [place] [address], [place] [address] Feb, [facility] [address] [id number] [address] [place] [address], [place] [address] Jan, [facility] [address] [id number] [address] [place] [address], [place] [address] Jan, [facility] [address] [id number] [address] [place] [address], [place] [address] Dec, [facility] [address] [id number] [address] [place] [address] Nov, [facility] [address] [id number] [address] [place] [address], [place] [address] Nov, [facility] [address] [id number] [address] [place] [address], [place] [address] October, [facility] [address] [id number] [address] [place] [address], [place] [address] October, [facility] [address] [id number] [address] [place] [address] Sep, [facility] [address] [id number] [address] [place] [address], [place] [address] Sep, [facility] [address] [id number] [address] [place] [address] May, [facility] [address] [id number] [address] [place] [address], [place] [address] Apr, [facility] [address] [id number] [address] [place] [address] Apr, [facility] [address] [id number] [address] [place] [address], [place] [address] Apr, [facility] [address] [id number] [address] [place] [address] Apr, [facility] [address] [id number] [address] [place] [address] Apr, [facility] [address] [id number] [address] [place] [address], [place] [address] Apr, [facility] [address] [id number] [address] [place] [address] Apr, [facility] [address] [id number] [address] [place] [address] Apr, [facility] [address] [id number] [address] [place] [address] Mar, [facility] [address] [id number] [address] [place] [address] Mar, [facility] [address] [id number] [address] [place] [address] Mar, [facility] [address] [id number] [address] [place] [id number] Mar, [facility] [address] [id number] [address] [place] [address], [place] [id number] 19 Mar, 2010 [facility] [address] [id number] [address] [place] [address] Mar, IMMUNIZATIONS No Known Immunizations SOCIAL HISTORY [...] Stomach surgeryx3 Hospitalization History Mental floor at [facility]
--- OUTSIDE RECORDS SUMMARY | 2019-12-24 19:56 | XMS REPORT ---
Author Author Trey ANDRADE Organization [facility] Address [address] [place] [address] Care Team Providers Care Registered Public Health Nurse Name Role Phone SURESH ANDRADE Unavailable PROBLEMS Type Condition ICD9-CM Code UCH28-BI Code Onset Dates Condition S tatus SNOMED Code Problem Nondependent 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 Ac tive 303061781 Problem Other chronic pain G89.29 Active 1 95112784 Problem Unspecified epilepsy without mention of intractable ep ilepsy G40.909 Active 96522909 Problem Hyperlipidemia, unspecified E78.5 Ac tive 21357977 Problem Hypertension I10 Active 5381289 3 Problem Esophageal reflux K21.9 Active 23 6403689 Problem Rheumatoid arthritis M06.9 Active 45705110 Problem Cough R05 Active 99097592 Problem Acquired hypothyroidism E03.9 Active 508434582 Problem Unspecified open-angle glaucoma, stage unspecified H40.10X0 Feb, Active 42412559 Problem Presbyopia H52.4 Active 10857012 Problem Insomnia G47.00 Active 249821524 Problem Arthralgia M25.50 Active 72741984 Problem Thyroid nodule E04.1 Active 69000 5005 Problem Anxiety disorder, unspecified F41.9 Active 606475648 Problem Chronic tension-type headache, intractable G44.221 Active 605096584 Problem Neuropathy G62.9 Active 890635805 Problem Goiter E04.9 Active 6435352 Problem Multinodular goiter E04.2 Active 878739020 Problem Carpal tunnel syndrome of left wrist G56.02 Active [id number] Problem Chronic obstructive pulmonary disease, unspecified COPD ty pe J44.9 Active 13913721 Problem BMI 40.0-44.9, adult Z68.41 Active 351497155 Problem Seasonal allergic rhinitis due to pollen J30.1 Active 18636590 Problem Depression F32.9 Active 08812704 Problem Essential hypertension I10 Active 06041118 Problem Depressive disorder F32.9 Active 54011837 Problem Right-sided low back pain without sciatica M54.5 Active 203783536 Problem Reactive airway disease with out complication, unspecified asthma severity, unspecified whether persistent J45.909 Active 817608964237 Problem Urge incontinence of urine N39.41 Act chen 74232966 Problem Abnormal laboratory test R89.9 Activ e 003574787 Problem COPD with exacerbation J44.1 Active 784531729 ALLERGIES No Information ENCOUNTERS Encounter Location Date Diagnosis [facility] [address] [address] Jan, Bronchitis J40 [place] [address] [address] October, Acquired hypothyroidism E03. 9 [place] [address] [address] October, Acute gastritis without hemo rrhage, unspecified gastritis type K29.00 ; Epigastric pain R10.13 ; Essential hypertension I10 ; Screening for colon cancer Z12.11 and BMI 40.0-44.9, adult Z68.41 [place] [address] [address] October, [facility] [place] [address] [address] October, Chest pain R07.9 and Morbid obesity E66.01 [facility] [place] [address] [address] Sep, Generalized abdominal pain R 10.84 ; Morbid obesity E66.01 ; Non-intractable vomiting with nausea, unspecified vomiting type R11.2 and Seasonal allergic rhinitis due to pollen J30.1 [facility] [place] [address] [address] Jul, COPD with exacerbation J44.1 ; Viral upper respiratory tract infection J06.9 and Morbid obesity E66.01 [facility] [place] [address] [address] Jun, Viral upper respiratory trac t infection J06.9 [facility] [address] [facility] [id number] [address] [place] [address] Apr, Abnormal laboratory test R89 .9 [facility] [address] [facility] [id number] [address] [place] [address] Apr, Abnormal laboratory test R89 .9 [facility] [address] [facility] [id number] [address] [place] [address] Apr, Abnormal laboratory test R89 .9 [facility] [address] [facility] [id number] [address] [place] [address] Apr, [place] [address] [address] [facility] [id number] [address] [place] [address] Apr, [place] [address] [address] [place] [id number] [address] [place] [address] Apr, Nonintractable episodic head ache, unspecified headache type R51 ; Urge incontinence of urine N39.41 ; BMI 40.0-44.9, adult Z68.41 ; Myalgia M79.10 and Acute cystitis without hematuria N30.00 [facility] [address] [place] [id number] [address] [place] [address] Mar, Nasal congestion R09.81 ; Lo w back pain M54.5 ; Reactive airway disease without complication, unspecified asthma severity, unspecified whether persistent J45.909 ; Other chronic pain G89.29 ; Acute cystitis with hematuria N30.01 and BMI 40.0-44.9, adult Z68.41 [facility] [address] [facility] [id number] [address] [place] [address] Mar, Acute cystitis with hematuri a N30.01 [facility] [address] [facility] [id number] [address] [address] Mar, BMI 40.0-44.9, adult Z68.41 ; Acute cystitis with hematuria N30.01 ; Acute bilateral low back pain without sciatica M54.5 and Nausea R11.0 [place] [address] [address] Mar, Hypertension I10 ; Acquired hypothyroidism E03.9 ; Esophageal reflux K21.9 ; Chronic obstructive pulmonary disease, unspecified COPD type J44.9 and BMI 40.0-44.9, adult Z68.41 [place] [address] [address] Mar, Hypertension I10 [place] [address] [address] Nov, Hyperlipidemia, unspecified E78.5 [place] [address] [address] October, Chest pain, unspecified type R07.9 and Acquired hypothyroidism E03.9 [place] [address] [address] October, Chest pain, unspecified type R07.9 ; Family history of coronary artery disease Z82.49 ; Carpal tunnel syndrome of left wrist G56.02 ; Hypertension I10 ; Esophageal reflux K21.9 ; Arthralgia M25.50 ; Acquired hypothyroidism E03.9 ; Cough R05 ; Nausea R11.0 ; Weight gain R63.5 and BMI 45.0-49.9, adult Z68.42 [place] [address] [address] Jun, Acquired hypothyroidism E03. 9 and Cough R05 [place] [address] [address] May, [address] [address] Feb, Tarsal tunnel syndrome of timi th lower extremities G57.53 and Neuropathy G62.9 [place] [address] [address] Dec, Pleuritis R09.1 [place] [id number] [place] [address] Nov, [place] [address] [address] [place] [id number] [address] [place] [address] October, Arthralgia, unspecified join t M25.50 and Allergy, initial encounter T78.40XA [place] [address] [address] [place] [id number] [address] [place] [address] October, [place] [address] [address] October, Acute recurrent maxillary si nusitis J01.01 and Arthralgia M25.50 [place] [address] [address] [place] [id number] [address] [place] [address] Sep, Pharyngitis due to other org anism J02.8 [place] [address] [address] Aug, Acute nasopharyngitis J00 [place] [address] [address] Aug, Multinodular goiter E04.2 [place] [address] [address] [place] [id number] [address] [place] [address] Aug, Thyroid nodule E04.1 [place] [address] [address] [place] [id number] [address] [place] [address] Jul, Tarsal tunnel syndrome of timi th lower extremities G57.53 [place] [address] [address] [place] [id number] [address] [place] [address] Jun, Pneumonia due to infectious organism, unspecified laterality, unspecified part of lung J18.9 [place] [address] [address] [place] [id number] [address] [place] [address] Jun, Bronchospasm with bronchitis , acute J20.9 [place] [address] [address] [place] [id number] [address] [place] [address] May, Acute non-recurrent frontal sinusitis J01.10 [place] [address] [address] May, Flat foot [pes planus] (acqu ired), left foot M21.42 ; Flat foot [pes planus] (acquired), right foot M21.41 and Neuropathy G62.9 [place] [address] [address] Apr, Chronic tension-type headach e, intractable G44.221 ; Right lower quadrant abdominal pain R10.31 ; Cervicalgia M54.2 ; Acute gastritis without hemorrhage, unspecified gastritis type K29.00 and Hypertension I10 [place] [address] [address] Mar, Depression F32.9 and Anxiety disorder, unspecified F41.9 [place] [address] [address] Feb, Depressive disorder F32.9 an d Anxiety disorder, unspecified F41.9 [place] [address] [address] Jan, Dysuria R30.0 ; Lower abdomi nal pain R10.30 ; Acute bilateral low back pain without sciatica M54.5 ; Nausea and vomiting, unspecified intactability, vomiting of unspecified type R11.2 ; Pain in right foot M79.671 and Pain of left foot M79.672 [place] [address] [address] Dec, Urinary tract infection, sit e not specified N39.0 [place] [address] [address] Dec, [place] [address] [address] Nov, [place] [address] [address] Nov, Dysuria R30.0 [place] [address] [facility] [id number] [address] [place] [address] Nov, Dysuria R30.0 and Acute cyst itis with hematuria N30.01 [place] [address] [address] [place] [id number] [address] [place] [address] October, Nausea R11.0 [place] [address] [address] [place] [id number] [place] [address] October, Thyroid nodule E04.1 ; Carpa l tunnel syndrome, left upper limb G56.02 ; Carpal tunnel syndrome, right upper limb G56.01 and Constipation, unspecified constipation type K59.00 [place] [address] [address] [place] [id number] [address] [place] [address] October, [place] [address] [address] October, Thyroid nodule E04.1 [place] [address] [address] [place] [id number] [address] [place] [address] October, Cold thyroid nodule E04.1 [place] [address] [address] [place] [id number] [address] [place] [address] October, [place] [address] [address] [place] [id number] [address] [place] [address] Sep, Thyroid nodule E04.1 [place] [address] [address] [place] [id number] [address] [place] [address] Sep, Thyroid nodule E04.1 [place] [address] [address] [place] [id number] [address] [place] [address] Sep, Thyroid nodule E04.1 ; Hyper tension I10 ; Esophageal reflux K21.9 and Hyperlipidemia, unspecified E78.5 [place] [id number] [address] [place] [address] Aug, Other chronic pain G89.29 ; Sinusitis J32.9 and Hypertension I10 [facility] [address] [address] 29 Jul, 2015 [facility] [address] [address] 15 Jul, 2015 [facility] [address] [address] 10 Jul, 2015 Insomnia G47.00 and Arthralg ia M25.50 [facility] [address] [address] 10 Jul, 2015 Depressive disorder F32.9 an d Anxiety disorder, unspecified F41.9 [place] [address] [address] May, Right-sided low back pain wi thout sciatica M54.5 and Depression F32.9 [place] [address] [address] Apr, Hematuria R31.9 [place] [address] [address] Mar, Other chronic pain G89.29 [place] [address] [address] 12 Mar, 2015 Other chronic pain G89.29 [place] [address] [address] 28 Feb, 2015 [place] [address] [address] 22 Feb, 2015 Other chronic pain 338.29 ; Dysuria 788.1 ; UTI (urinary tract infection) 599.0 ; Insomnia 780.52 ; Hot flashes 627.2 and Hypertension 401.9 [place] [address] [address] [place] [id number] [address] [address] 14 Feb, 2015 Dysuria 788.1 [place] [address] [address] Feb, [facility] [address] [id number] [address] [place] [address] Jan, [facility] [address] [id number] [address] [place] [address] Jan, [facility] [address] [id number] [address] [place] [address] Jan, Fibromyalgia 729.1 ; Hyperte nsion 401.9 ; Dysthymia 300.4 and Hot flashes 627.2 [facility] [address] [id number] [address] [place] [address] Dec, [facility] [address] [id number] [address] [place] [address] Dec, [facility] [address] [id number] [address] [place] [address] Dec, [facility] [address] [id number] [address] [place] [address] Nov, Other chronic pain 338.29 [facility] [address] [id number] [address] [place] [address] October, [facility] [address] [id number] [address] [place] [address] October, [facility] [address] [id number] [address] [place] [address] Sep, [facility] [address] [id number] [address] [place] [phone] Sep, [facility] [address] [id number] [address] [place] [address] Aug, [facility] [address] [id number] [address] [place] [phone] Aug, [facility] [address] [id number] [address] [place] [address] Aug, [facility] [address] [id number] [address] [place] [address], [place] [address] Aug, [facility] [address] [id number] [address] [place] [address], [place] [address] Aug, [facility] [address] [id number] [address] [place] [address], [place] [address] Aug, [facility] [address] [id number] [address] [place] [address], [place] [address] Aug, [facility] [address] [id number] [address] [place] [address], [place] [address] Aug, [facility] [address] [id number] [address] [place] [address], [place] [address] Aug, [facility] [address] [id number] [address] [place] [address], [place] [address] Aug, [facility] [address] [id number] [address] [place] [address], [place] [address] Aug, [facility] [address] [id number] [address] [place] [address], [place] [address] Aug, [facility] [address] [id number] [address] [place] [address], [place] [address] Aug, [facility] [address] [id number] [address] [place] [address], [place] [address] Aug, [facility] [address] [id number] [address] [place] [address], [place] [address] Jul, 2014 [facility] [address] [id number] [address] [place] [address], [place] [address] Jul, [facility] [address] [id number] [address] [place] [address], [place] [address] Jul, [facility] [address] [id number] [address] [place] [address], [place] [address] Jul, 2014 [facility] [address] [id number] [address] [place] [address], [place] [address] Jul, [facility] [address] [id number] [address] [place] [address], [place] [address] Jul, [facility] [address] [id number] [address] [place] [address], [place] [address] Jun, [facility] [address] [id number] [address] [place] [address], [place] [address] Jun, [facility] [address] [id number] [address] [place] [address], [place] [address] Jun, [facility] [address] [id number] [address] [place] [address], [place] [address] Jun, [facility] [address] [id number] [address] [place] [address], [place] [address] May, [facility] [address] [id number] [address] [place] [address], [place] [address] May, [facility] [address] [id number] [address] [place] [address], [place] [address] May, [facility] [address] [id number] [address] [place] [address], [place] [address] May, [facility] [address] [id number] [address] [place] [address], [place] [address] May, [facility] [address] [id number] [address] [place] [address], [place] [address] May, [facility] [address] [id number] [address] [place] [address], [place] [address] May, [facility] [address] [id number] [address] [place] [address], [place] [address] May, [facility] [address] [id number] [address] [place] [address], [place] [address] May, [facility] [address] [id number] [address] [place] [address], [place] [address] May, [facility] [address] [id number] [address] [place] [address], [place] [address] Apr, [facility] [address] [id number] [address] [place] [address], [place] [address] Apr, [facility] [address] [id number] [address] [place] [address], [place] [address] Apr, [facility] [address] [id number] [address] [place] [address], [place] [address] Apr, [facility] [address] [id number] [address] [place] [address], [place] [address] Apr, [facility] [address] [id number] [address] [place] [address], [place] [address] Apr, [facility] [address] [id number] [address] [place] [address], [place] [address] Apr, [facility] [address] [id number] [address] [place] [address], [place] [address] Apr, [facility] [address] [id number] [address] [place] [address], [place] [address] Apr, [facility] [address] [id number] [address] [place] [address], [place] [address] Mar, [facility] [address] [id number] [address] [place] [address], [place] [address] Mar, [facility] [address] [id number] [address] [place] [address], [place] [address] Mar, [facility] [address] [id number] [address] [place] [address], [place] [address] Mar, [facility] [address] [id number] [address] [place] [address], [place] [address] Mar, [facility] [address] [id number] [address] [place] [address], [place] [address] Mar, [facility] [address] [id number] [address] [place] [address], [place] [address] Mar, [facility] [address] [id number] [address] [place] [address], [place] [address] 08 Mar, 2013 [facility] [address] [id number] [address] [place] [address], [place] [address] 30 Feb, 2013 [facility] [address] [id number] [address] [place] [address], [place] [address] 30 Sep, 2013 [facility] [address] [id number] [address] [place] [address], [place] [address] 24 Feb, 2013 [facility] [address] [id number] [address] [place] [address], [place] [address] 24 Feb, 2013 [facility] [address] [id number] [address] [place] [address], [place] [address] 22 Feb, 2013 [facility] [address] [id number] [address] [place] [address], [place] [address] 22 Feb, 2013 [facility] [address] [id number] [address] [place] [address], [place] [address] 10 Feb, 2013 [facility] [address] [id number] [address] [place] [address], [place] [address] 10 Feb, 2013 [facility] [address] [id number] [address] [place] [address], [place] [address] 03 Feb, 2013 [facility] [address] [id number] [address] [place] [address], [place] [address] 03 Sep, 2013 [facility] [address] [id number] [address] [place] [address], [place] [address] 03 Sep, 2013 [facility] [address] [id number] [address] [place] [address], [place] [address] 03 Sep, 2013 [facility] [address] [id number] [address] [place] [address], [place] [address] 03 Sep, 2013 [facility] [address] [id number] [address] [place] [address], [place] [address] 03 Sep, 2013 [facility] [address] [id number] [address] [place] [address], [place] [address] Jan, [facility] [address] [id number] [address] [place] [address], [place] [address] Jan, [facility] [address] [id number] [address] [place] [address], [place] [address] Dec, [facility] [address] [id number] [address] [place] [address], [place] [address] Dec, [facility] [address] [id number] [address] [place] [address], [place] [address] Dec, [facility] [address] [id number] [address] [place] [address], [place] [address] Dec, [facility] [address] [id number] [address] [place] [address], [place] [id number] Dec, [facility] [address] [id number] [address] [place] [address], [place] [address] Dec, [facility] [address] [id number] [address] [place] [address], [place] [address] Dec, [facility] [address] [id number] [address] [place] [address], [place] [address] Dec, [facility] [address] [id number] [address] [place] [address], [place] [address] Dec, [facility] [address] [id number] [address] [place] [address], [place] [address] Dec, [facility] [address] [id number] [address] [place] [address], [place] [address] Dec, [facility] [address] [id number] [address] [place] [address], [place] [address] Dec, [facility] [address] [id number] [address] [place] [address], [place] [address] Dec, [facility] [address] [id number] [address] [place] [address], [place] [address] Dec, [facility] [address] [id number] [address] [place] [address] Dec, [facility] [address] [id number] [address] [place] [address] Dec, [facility] [address] [id number] [address] [place] [address] Dec, [facility] [address] [id number] [address] [place] [address], [place] [address] Dec, [facility] [address] [id number] [address] [place] [address], [place] [address] Dec, [facility] [address] [id number] [address] [place] [address], [place] [address] Nov, [facility] [address] [id number] [address] [place] [address], [place] [address] Nov, [facility] [address] [id number] [address] [place] [address], [place] [address] Nov, [facility] [address] [id number] [address] [place] [address], [place] [address] Nov, [facility] [address] [id number] [address] [place] [address], [place] [address] Nov, [facility] [address] [id number] [address] [place] [address], [place] [address] Nov, [facility] [address] [id number] [address] [place] [address], [place] [address] Nov, [facility] [address] [id number] [address] [place] [address], [place] [address] Nov, [facility] [address] [id number] [address] [place] [address], [place] [address] Nov, [facility] [address] [id number] [address] [place] [address], [place] [address] October, [facility] [address] [id number] [address] [place] [address], [place] [address] October, [facility] [address] [id number] [facility] [place] [address] October, [facility] [address] [id number] [address] [place] [address], [place] [address] October, [facility] [address] [id number] [address] [place] [address], [place] [address] October, [facility] [address] [id number] [address] [place] [address], [place] [address] October, [facility] [address] [id number] [address] [place] [address], [place] [address] October, [facility] [address] [id number] [address] [place] [address], [place] [address] October, [facility] [address] [id number] [address] [place] [address], [place] [address] Sep, [facility] [address] [id number] [address] [place] [address], [place] [address] Sep, [facility] [address] [id number] [address] [place] [address], [place] [address] Sep, [facility] [address] [id number] [address] [place] [address], [place] [address] Sep, [facility] [address] [id number] [address] [place] [address], [place] [address] Sep, [facility] [address] [id number] [address] [place] [address], [place] [address] Sep, [facility] [address] [id number] [address] [place] [address], [place] [address] Sep, [facility] [address] [id number] [address] [place] [address], [place] [address] Aug, [facility] [address] [id number] [address] [place] [address], [place] [address] Aug, [facility] [address] [id number] [address] [place] [address], [place] [address] Aug, [facility] [address] [id number] [address] [place] [address], [place] [address] Aug, [facility] [address] [id number] [address] [place] [address], [place] [address] Aug, [facility] [address] [id number] [address] [place] [address], [place] [address] Aug, [facility] [address] [id number] [address] [place] [address], [place] [address] Jul, [facility] [address] [id number] [address] [place] [address], [place] [address] Jul, [facility] [address] [id number] [address] [place] [address], [place] [address] Jul, [facility] [address] [id number] [address] [place] [address], [place] [address] Jul, [facility] [address] [id number] [address] [place] [address], [place] [address] Jul, [facility] [address] [id number] [address] [place] [address], [place] [address] Jul, [facility] [address] [id number] [address] [place] [address], [place] [address] Jun, [facility] [address] [id number] [address] [place] [address], [place] [address] Jun, [facility] [address] [id number] [address] [place] [address], [place] [address] Jun, [facility] [address] [id number] [address] [place] [address], [place] [address] Jun, [facility] [address] [id number] [address] [place] [address], [place] [address] Jun, [facility] [address] [id number] [address] [place] [address], [place] [address] Jun, [facility] [address] [id number] [address] [place] [address], [place] [address] Jun, [facility] [address] [id number] [address] [place] [address], [place] [address] Jun, [facility] [address] [id number] [address] [place] [address], [place] [address] 16 Jun, 2013 [facility] [address] [id number] [address] [place] [address], [place] [address] Jun, [facility] [address] [id number] [address] [place] [address], [place] [address] Jun, [facility] [address] [id number] [address] [place] [address], [place] [address] Jun, [facility] [address] [id number] [address] [place] [address], [place] [address] Jun, [facility] [address] [id number] [address] [place] [address], [place] [address] 30 May, 2013 [facility] [address] [id number] [address] [place] [address], [place] [address] 30 May, 2013 [facility] [address] [id number] [address] [place] [address], [place] [address] 30 May, 2013 [facility] [address] [id number] [address] [place] [address], [place] [address] 30 May, 2013 [facility] [address] [id number] [address] [place] [address], [place] [address] May, [facility] [address] [id number] [address] [place] [address], [place] [address] May, [facility] [address] [id number] [address] [place] [address], [place] [address] May, [facility] [address] [id number] [address] [place] [address], [place] [address] 12 May, 2013 [facility] [address] [id number] [address] [place] [address], [place] [address] 12 May, 2013 [facility] [address] [id number] [address] [place] [address], [place] [address] May, [facility] [address] [id number] [address] [place] [address], [place] [address] May, [facility] [address] [id number] [address] [place] [address], [place] [address] May, [facility] [address] [id number] [address] [place] [address], [place] [address] May, [facility] [address] [id number] [address] [place] [address], [place] [address] May, [facility] [address] [id number] [address] [place] [address], [place] [address] May, [facility] [address] [id number] [address] [place] [address], [place] [address] May, [facility] [address] [id number] [address] [place] [address], [place] [address] May, [facility] [address] [id number] [address] [place] [address], [place] [address] May, [facility] [address] [id number] [address] [place] [address], [place] [address] May, [facility] [address] [id number] [address] [place] [address], [place] [address] May, [facility] [address] [id number] [address] [place] [address], [place] [address] May, [facility] [address] [id number] [address] [place] [address], [place] [address] Apr, [facility] [address] [id number] [address] [place] [address], [place] [address] Apr, [facility] [address] [id number] [address] [place] [address], [place] [address] Apr, [facility] [address] [id number] [address] [place] [address], [place] [address] Apr, [facility] [address] [id number] [address] [place] [address], [place] [address] 08 Mar, 2013 [facility] [address] [id number] [address] [place] [address], [place] [address] 23 Feb, 2012 [facility] [address] [id number] [address] [place] [address], [place] [address] 16 Feb, 2012 [facility] [address] [id number] [address] [place] [address], [place] [address] 13 Feb, 2013 [facility] [address] [id number] [address] [place] [address], [place] [address] 10 Feb, 2013 [facility] [address] [id number] [address] [place] [address], [place] [address] 09 Feb, 2013 [facility] [address] [id number] [address] [place] [address], [place] [address] 09 Feb, 2013 [facility] [address] [id number] [address] [place] [address], [place] [address] Jan, [facility] [address] [id number] [address] [place] [address], [place] [address] Jan, [facility] [address] [id number] [address] [place] [address], [place] [address] Jan, [facility] [address] [id number] [address] [place] [address], [place] [address] Dec, [facility] [address] [id number] [address] [place] [address], [place] [address] Dec, [facility] [address] [id number] [address] [place] [address], [place] [address] Dec, [facility] [address] [id number] [address] [place] [address], [place] [address] 15 Dec, 2012 [facility] [address] [id number] [address] [place] [address] [address] Dec, [facility] [address] [id number] [address] [place] [address], [place] [address] Nov, [facility] [address] [id number] [address] [place] [address], [place] [address] Nov, [facility] [address] [id number] [address] [place] [address], [place] [address] Nov, [facility] [address] [id number] [address] [place] [address], [place] [address] Nov, [facility] [address] [id number] [address] [place] [address], [place] [address] Nov, [facility] [address] [id number] [address] [place] [address], [place] [address] 08 Nov, 2012 [facility] [address] [id number] [address] [place] [address], [place] [address] Nov, [facility] [address] [id number] [address] [place] [address], [place] [address] Nov, [facility] [address] [id number] [address] [place] [address], [place] [address] 05 Nov, 2012 [facility] [address] [id number] [address] [place] [address], [place] [address] Nov, [facility] [address] [id number] [address] [place] [address], [place] [address] October, [facility] [address] [id number] [address] [place] [address], [place] [address] October, [facility] [address] [id number] [address] [place] [address], [place] [address] Sep, [facility] [address] [id number] [address] [place] [address], [place] [address] Sep, [facility] [address] [id number] [address] [place] [address], [place] [address] Sep, [facility] [address] [id number] [address] [place] [address], [place] [address] 06 Sep, 2012 [facility] [address] [id number] [address] [place] [address], [place] [address] Sep, [facility] [address] [id number] [address] [place] [address], [place] [address] Aug, [facility] [address] [id number] [address] [place] [address], [place] [address] Aug, [facility] [address] [id number] [address] [place] [address], [place] [address] Jul, [facility] [address] [id number] [address] [place] [address], [place] [address] Jul, [facility] [address] [id number] [address] [place] [address], [place] [address] Jun, [facility] [address] [id number] [address] [place] [address], [place] [address] Jun, [facility] [address] [id number] [address] [place] [address], [place] [address] May, [facility] [address] [id number] [address] [place] [address], [place] [address] May, [facility] [address] [id number] [address] [place] [address], [place] [address] May, [facility] [address] [id number] [address] [place] [address], [place] [address] May, [facility] [address] [id number] [address] [place] [address], [place] [address] Apr, [facility] [address] [id number] [address] [place] [address], [place] [address] Apr, [facility] [address] [id number] [address] [place] [address], [place] [address] Apr, [facility] [address] [id number] [address] [place] [address], [place] [address] Apr, [facility] [address] [id number] [address] [place] [address], [place] [address] Apr, [facility] [address] [id number] [address] [place] [address], [place] [address] Apr, [facility] [address] [id number] [address] [place] [address], [place] [address] Apr, [facility] [address] [id number] [address] [place] [address], [place] [address] Apr, [facility] [address] [id number] [address] [place] [address], [place] [address] Apr, [facility] [address] [id number] [address] [place] [address], [place] [address] Mar, [facility] [address] [id number] [address] [place] [address], [place] [address] Mar, [facility] [address] [id number] [address] [place] [address], [place] [address] Feb, [facility] [address] [id number] [address] [place] [address], [place] [address] Jan, [facility] [address] [id number] [address] [place] [address], [place] [address] Jan, [facility] [address] [id number] [address] [place] [address], [place] [address] Dec, [facility] [address] [id number] [address] [place] [address] Nov, [facility] [address] [id number] [address] [place] [address], [place] [address] Nov, [facility] [address] [id number] [address] [place] [address], [place] [address] October, [facility] [address] [id number] [address] [place] [address], [place] [address] October, [facility] [address] [id number] [address] [place] [address] Sep, [facility] [address] [id number] [address] [place] [address], [place] [address] Sep, [facility] [address] [id number] [address] [place] [address] May, [facility] [address] [id number] [address] [place] [address], [place] [address] Apr, [facility] [address] [id number] [address] [place] [address] Apr, [facility] [address] [id number] [address] [place] [address], [place] [address] Apr, [facility] [address] [id number] [address] [place] [address] Apr, [facility] [address] [id number] [address] [place] [address] Apr, [facility] [address] [id number] [address] [place] [address], [place] [address] Apr, [facility] [address] [id number] [address] [place] [address] Apr, [facility] [address] [id number] [address] [place] [address] Apr, [facility] [address] [id number] [address] [place] [address] Mar, [facility] [address] [id number] [address] [place] [address] Mar, [facility] [address] [id number] [address] [place] [address] Mar, [facility] [address] [id number] [address] [place] [address] Mar, [facility] [address] [id number] [address] [place] [address], [place] [address] 19 Mar, 2010 [facility] [address] [id number] [address] [place] [address] Mar, IMMUNIZATIONS No Known Immunizations SOCIAL HISTORY [...]
--- OUTSIDE RECORDS SUMMARY | 2019-12-24 19:56 | XMS REPORT ---
Author Author Trey Lynn Organization [facility] Address [address] [place] [address] Care Team Providers Care Picking Belt Operator Name Role Phone MEGHA Lynn Unavailable PROBLEMS Type Condition ICD9-CM Code PHM85-DN Code Onset Dates Condition S tatus SNOMED Code Problem Nondependent 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 Ac tive 993422621 Problem Other chronic pain G89.29 Active 1 17575043 Problem Unspecified epilepsy without mention of intractable ep ilepsy G40.909 Active 38969570 Problem Hyperlipidemia, unspecified E78.5 Ac tive 68568852 Problem Hypertension I10 Active 2964465 3 Problem Esophageal reflux K21.9 Active 23 4938600 Problem Rheumatoid arthritis M06.9 Active 77122073 Problem Cough R05 Active 71312594 Problem Acquired hypothyroidism E03.9 Active 326589410 Problem Unspecified open-angle glaucoma, stage unspecified H40.10X0 Feb, Active 22408738 Problem Presbyopia H52.4 Active 84029659 Problem Insomnia G47.00 Active 389907421 Problem Arthralgia M25.50 Active 42872137 Problem Thyroid nodule E04.1 Active 23519 5005 Problem Anxiety disorder, unspecified F41.9 Active 179130335 Problem Chronic tension-type headache, intractable G44.221 Active 831439839 Problem Neuropathy G62.9 Active 059836070 Problem Goiter E04.9 Active 5973820 Problem Multinodular goiter E04.2 Active 621057814 Problem Carpal tunnel syndrome of left wrist G56.02 Active [id number] Problem Chronic obstructive pulmonary disease, unspecified COPD ty pe J44.9 Active 49683061 Problem BMI 40.0-44.9, adult Z68.41 Active 202098558 Problem Seasonal allergic rhinitis due to pollen J30.1 Active 41493303 Problem Depression F32.9 Active 15260424 Problem Essential hypertension I10 Active 89423748 Problem Depressive disorder F32.9 Active 20388638 Problem Right-sided low back pain without sciatica M54.5 Active 892401284 Problem Reactive airway disease with out complication, unspecified asthma severity, unspecified whether persistent J45.909 Active 354060873913 Problem Urge incontinence of urine N39.41 Act chen 32874854 Problem Abnormal laboratory test R89.9 Activ e 216218189 Problem COPD with exacerbation J44.1 Active 915982913 ALLERGIES No Information ENCOUNTERS Encounter Location Date Diagnosis [facility] [address] [address] Jan, Bronchitis J40 [place] [address] [address] October, Acquired hypothyroidism E03. 9 [place] [address] [address] October, Acute gastritis without hemo rrhage, unspecified gastritis type K29.00 ; Epigastric pain R10.13 ; Essential hypertension I10 ; Screening for colon cancer Z12.11 and BMI 40.0-44.9, adult Z68.41 [place] [address] [address] October, [facility] [place] [address] [address] October, Chest pain R07.9 and Morbid obesity E66.01 [facility] [place] [address] [address] Sep, Generalized abdominal pain R 10.84 ; Morbid obesity E66.01 ; Non-intractable vomiting with nausea, unspecified vomiting type R11.2 and Seasonal allergic rhinitis due to pollen J30.1 [facility] [place] [address] [address] Jul, COPD with exacerbation J44.1 ; Viral upper respiratory tract infection J06.9 and Morbid obesity E66.01 [facility] [place] [address] [address] Jun, Viral upper respiratory trac t infection J06.9 [facility] [address] [facility] [id number] [address] [place] [address] Apr, Abnormal laboratory test R89 .9 [facility] [address] [facility] [id number] [address] [place] [address] Apr, Abnormal laboratory test R89 .9 [facility] [address] [facility] [id number] [address] [place] [address] Apr, Abnormal laboratory test R89 .9 [facility] [address] [facility] [id number] [address] [place] [address] Apr, [place] [address] [facility] [id number] [address] [place] [address] Apr, [place] [address] [place] [id number] [address] [place] [address] Apr, Nonintractable episodic head ache, unspecified headache type R51 ; Urge incontinence of urine N39.41 ; BMI 40.0-44.9, adult Z68.41 ; Myalgia M79.10 and Acute cystitis without hematuria N30.00 [facility] [address] [place] [id number] [address] [place] [address] Mar, Nasal congestion R09.81 ; Lo w back pain M54.5 ; Reactive airway disease without complication, unspecified asthma severity, unspecified whether persistent J45.909 ; Other chronic pain G89.29 ; Acute cystitis with hematuria N30.01 and BMI 40.0-44.9, adult Z68.41 [facility] [address] [facility] [id number] [address] [place] [address] Mar, Acute cystitis with hematuri a N30.01 [facility] [address] [facility] [id number] [address] [place] [address] Mar, BMI 40.0-44.9, adult Z68.41 ; Acute cystitis with hematuria N30.01 ; Acute bilateral low back pain without sciatica M54.5 and Nausea R11.0 [place] [address] [address] Mar, Hypertension I10 ; Acquired hypothyroidism E03.9 ; Esophageal reflux K21.9 ; Chronic obstructive pulmonary disease, unspecified COPD type J44.9 and BMI 40.0-44.9, adult Z68.41 [place] [address] [address] Mar, Hypertension I10 [place] [address] [address] Nov, Hyperlipidemia, unspecified E78.5 [place] [address] [address] October, Chest pain, unspecified type R07.9 and Acquired hypothyroidism E03.9 [place] [address] [address] October, Chest pain, unspecified type R07.9 ; Family history of coronary artery disease Z82.49 ; Carpal tunnel syndrome of left wrist G56.02 ; Hypertension I10 ; Esophageal reflux K21.9 ; Arthralgia M25.50 ; Acquired hypothyroidism E03.9 ; Cough R05 ; Nausea R11.0 ; Weight gain R63.5 and BMI 45.0-49.9, adult Z68.42 [place] [address] [address] Jun, Acquired hypothyroidism E03. 9 and Cough R05 [place] [address] [address] May, [address] [address] Feb, Tarsal tunnel syndrome of timi th lower extremities G57.53 and Neuropathy G62.9 [place] [address] [address] Dec, Pleuritis R09.1 [place] [address] [place] [address] Nov, [place] [address] [place] [id number] [address] [place] [address] October, Arthralgia, unspecified join t M25.50 and Allergy, initial encounter T78.40XA [place] [address] [place] [id number] [address] [place] [address] October, [place] [address] [address] October, Acute recurrent maxillary si nusitis J01.01 and Arthralgia M25.50 [place] [address] [place] [id number] [address] [place] [address] Sep, Pharyngitis due to other org anism J02.8 [place] [address] [address] Aug, Acute nasopharyngitis J00 [place] [address] [address] Aug, Multinodular goiter E04.2 [place] [address] [place] [id number] [address] [place] [address] Aug, Thyroid nodule E04.1 [place] [address] [place] [id number] [address] [place] [address] Jul, Tarsal tunnel syndrome of timi th lower extremities G57.53 [place] [address] [place] [id number] [address] [place] [address] Jun, Pneumonia due to infectious organism, unspecified laterality, unspecified part of lung J18.9 [place] [address] [place] [id number] [address] [place] [address] Jun, Bronchospasm with bronchitis , acute J20.9 [place] [address] [place] [id number] [address] [place] [address] May, Acute non-recurrent frontal sinusitis J01.10 [place] [address] [address] May, Flat foot [pes planus] (acqu ired), left foot M21.42 ; Flat foot [pes planus] (acquired), right foot M21.41 and Neuropathy G62.9 [place] [address] [address] Apr, Chronic tension-type headach e, intractable G44.221 ; Right lower quadrant abdominal pain R10.31 ; Cervicalgia M54.2 ; Acute gastritis without hemorrhage, unspecified gastritis type K29.00 and Hypertension I10 [place] [address] [address] Mar, Depression F32.9 and Anxiety disorder, unspecified F41.9 [place] [address] [address] Feb, Depressive disorder F32.9 an d Anxiety disorder, unspecified F41.9 [place] [address] [address] Jan, Dysuria R30.0 ; Lower abdomi nal pain R10.30 ; Acute bilateral low back pain without sciatica M54.5 ; Nausea and vomiting, unspecified intactability, vomiting of unspecified type R11.2 ; Pain in right foot M79.671 and Pain of left foot M79.672 [place] [address] [address] Dec, Urinary tract infection, sit e not specified N39.0 [place] [address] [address] Dec, [place] [address] [address] Nov, [place] [address] [address] Nov, Dysuria R30.0 [place] [address] [facility] [id number] [address] [place] [address] Nov, Dysuria R30.0 and Acute cyst itis with hematuria N30.01 [place] [address] [place] [id number] [address] [place] [address] October, Nausea R11.0 [place] [address] [place] [id number] [place] [address] October, Thyroid nodule E04.1 ; Carpa l tunnel syndrome, left upper limb G56.02 ; Carpal tunnel syndrome, right upper limb G56.01 and Constipation, unspecified constipation type K59.00 [place] [address] [place] [id number] [address] [place] [address] October, [place] [address] [address] October, Thyroid nodule E04.1 [place] [address] [place] [id number] [address] [place] [address] October, Cold thyroid nodule E04.1 [place] [address] [place] [id number] [address] [place] [address] October, [place] [address] [place] [id number] [address] [place] [address] Sep, Thyroid nodule E04.1 [place] [address] [place] [id number] [address] [place] [address] Sep, Thyroid nodule E04.1 [place] [address] [place] [id number] [address] [place] [address] Sep, Thyroid nodule E04.1 ; Hyper tension I10 ; Esophageal reflux K21.9 and Hyperlipidemia, unspecified E78.5 [place] [address] [place] [id number] [address] [place] [address] Aug, Other chronic pain G89.29 ; Sinusitis J32.9 and Hypertension I10 [facility] [address] [address] 29 Jul, 2015 [facility] [address] [address] 15 Jul, 2015 [facility] [address] [address] 10 Jul, 2015 Insomnia G47.00 and Arthralg ia M25.50 [facility] [address] [address] 10 Jul, 2015 Depressive disorder F32.9 an d Anxiety disorder, unspecified F41.9 [place] [address] [address] May, Right-sided low back pain wi thout sciatica M54.5 and Depression F32.9 [place] [address] [address] Apr, Hematuria R31.9 [place] [address] [address] Mar, Other chronic pain G89.29 [place] [address] [address] 12 Mar, 2015 Other chronic pain G89.29 [place] [address] [address] 28 Feb, 2015 [place] [address] [address] 22 Feb, 2015 Other chronic pain 338.29 ; Dysuria 788.1 ; UTI (urinary tract infection) 599.0 ; Insomnia 780.52 ; Hot flashes 627.2 and Hypertension 401.9 [place] [address] [place] [id number] [address] [place] [address] 14 Feb, 2015 Dysuria 788.1 [place] [address] [address] Feb, [facility] [address] [id number] [address] [place] [address] Jan, [facility] [address] [id number] [address] [place] [address] Jan, [facility] [address] [id number] [address] [place] [address] Jan, Fibromyalgia 729.1 ; Hyperte nsion 401.9 ; Dysthymia 300.4 and Hot flashes 627.2 [facility] [address] [id number] [address] [place] [address] Dec, [facility] [address] [id number] [address] [place] [address] Dec, [facility] [address] [id number] [address] [place] [address] Dec, [facility] [address] [id number] [address] [place] [address] Nov, Other chronic pain 338.29 [facility] [address] [id number] [address] [place] [address] October, [facility] [address] [id number] [address] [place] [address] October, [facility] [address] [id number] [address] [place] [address] Sep, [facility] [address] [id number] [address] [place] [address] Sep, [facility] [address] [id number] [address] [place] [address] Aug, [facility] [address] [id number] [address] [place] [address] Aug, [facility] [address] [id number] [address] [place] [address] Aug, [facility] [address] [id number] [address] [place] [address], [place] [address] Aug, [facility] [address] [id number] [address] [place] [address], [place] [address] Aug, [facility] [address] [id number] [address] [place] [address], [place] [address] Aug, [facility] [address] [id number] [address] [place] [address], [place] [address] Aug, [facility] [address] [id number] [address] [place] [address], [place] [address] Aug, [facility] [address] [id number] [address] [place] [address], [place] [address] Aug, [facility] [address] [id number] [address] [place] [address], [place] [address] Aug, [facility] [address] [id number] [address] [place] [address], [place] [address] Aug, [facility] [address] [id number] [address] [place] [address], [place] [address] Aug, [facility] [address] [id number] [address] [place] [address], [place] [address] Aug, [facility] [address] [id number] [address] [place] [address], [place] [address] Aug, [facility] [address] [id number] [address] [place] [address], [place] [address] Jul, 2014 [facility] [address] [id number] [address] [place] [address], [place] [address] Jul, [facility] [address] [id number] [address] [place] [address], [place] [address] Jul, [facility] [address] [id number] [address] [place] [address], [place] [address] Jul, 2014 [facility] [address] [id number] [address] [place] [address], [place] [address] Jul, [facility] [address] [id number] [address] [place] [address], [place] [address] Jul, [facility] [address] [id number] [address] [place] [address], [place] [address] Jun, [facility] [address] [id number] [address] [place] [address], [place] [address] Jun, [facility] [address] [id number] [address] [place] [address], [place] [address] Jun, [facility] [address] [id number] [address] [place] [address], [place] [address] Jun, [facility] [address] [id number] [address] [place] [address], [place] [address] May, [facility] [address] [id number] [address] [place] [address], [place] [address] May, [facility] [address] [id number] [address] [place] [address], [place] [address] May, [facility] [address] [id number] [address] [place] [address], [place] [address] May, [facility] [address] [id number] [address] [place] [address], [place] [address] May, [facility] [address] [id number] [address] [place] [address], [place] [address] May, [facility] [address] [id number] [address] [place] [address], [place] [address] May, [facility] [address] [id number] [address] [place] [address], [place] [address] May, [facility] [address] [id number] [address] [place] [address], [place] [address] May, [facility] [address] [id number] [address] [place] [address], [place] [address] May, [facility] [address] [id number] [address] [place] [address], [place] [address] Apr, [facility] [address] [id number] [address] [place] [address], [place] [address] Apr, [facility] [address] [id number] [address] [place] [address], [place] [address] Apr, [facility] [address] [id number] [address] [place] [address], [place] [address] Apr, [facility] [address] [id number] [address] [place] [address], [place] [address] Apr, [facility] [address] [id number] [address] [place] [address], [place] [address] Apr, [facility] [address] [id number] [address] [place] [address], [place] [address] Apr, [facility] [address] [id number] [address] [place] [address], [place] [address] Apr, [facility] [address] [id number] [address] [place] [address], [place] [address] Apr, [facility] [address] [id number] [address] [place] [address], [place] [address] Mar, [facility] [address] [id number] [address] [place] [address], [place] [address] Mar, [facility] [address] [id number] [address] [place] [address], [place] [address] Mar, [facility] [address] [id number] [address] [place] [address], [place] [address] Mar, [facility] [address] [id number] [address] [place] [address], [place] [address] Mar, [facility] [address] [id number] [address] [place] [address], [place] [address] Mar, [facility] [address] [id number] [address] [place] [address], [place] [address] Mar, [facility] [address] [id number] [address] [place] [address], [place] [address] 08 Mar, 2013 [facility] [address] [id number] [address] [place] [address], [place] [address] 30 Feb, 2013 [facility] [address] [id number] [address] [place] [address], [place] [address] 30 Sep, 2013 [facility] [address] [id number] [address] [place] [address], [place] [address] 24 Feb, 2013 [facility] [address] [id number] [address] [place] [address], [place] [address] 24 Feb, 2013 [facility] [address] [id number] [address] [place] [address], [place] [address] 22 Feb, 2013 [facility] [address] [id number] [address] [place] [address], [place] [address] 22 Feb, 2013 [facility] [address] [id number] [address] [place] [address], [place] [address] 10 Feb, 2013 [facility] [address] [id number] [address] [place] [address], [place] [address] 10 Feb, 2013 [facility] [address] [id number] [address] [place] [address], [place] [address] 03 Feb, 2013 [facility] [address] [id number] [address] [place] [address], [place] [address] 03 Sep, 2013 [facility] [address] [id number] [address] [place] [address], [place] [address] 03 Sep, 2013 [facility] [address] [id number] [address] [place] [address], [place] [address] 03 Sep, 2013 [facility] [address] [id number] [address] [place] [address], [place] [address] 03 Sep, 2013 [facility] [address] [id number] [address] [place] [address], [place] [address] 03 Sep, 2013 [facility] [address] [id number] [address] [place] [address], [place] [address] Jan, [facility] [address] [id number] [address] [place] [address], [place] [address] Jan, [facility] [address] [id number] [address] [place] [address], [place] [address] Dec, [facility] [address] [id number] [address] [place] [address], [place] [address] Dec, [facility] [address] [id number] [address] [place] [address], [place] [address] Dec, [facility] [address] [id number] [address] [place] [address], [place] [address] Dec, [facility] [address] [id number] [address] [place] [address], [place] [id number] Dec, [facility] [address] [id number] [address] [place] [address], [place] [address] Dec, [facility] [address] [id number] [address] [place] [address], [place] [address] Dec, [facility] [address] [id number] [address] [place] [address], [place] [address] Dec, [facility] [address] [id number] [address] [place] [address], [place] [address] Dec, [facility] [address] [id number] [address] [place] [address], [place] [address] Dec, [facility] [address] [id number] [address] [place] [address], [place] [address] Dec, [facility] [address] [id number] [address] [place] [address], [place] [address] Dec, [facility] [address] [id number] [address] [place] [address], [place] [address] Dec, [facility] [address] [id number] [address] [place] [address], [place] [address] Dec, [facility] [address] [id number] [address] [place] [address] Dec, [facility] [address] [id number] [address] [place] [address] Dec, [facility] [address] [id number] [address] [place] [address] Dec, [facility] [address] [id number] [address] [place] [address], [place] [address] Dec, [facility] [address] [id number] [address] [place] [address], [place] [address] Dec, [facility] [address] [id number] [address] [place] [address], [place] [address] Nov, [facility] [address] [id number] [address] [place] [address], [place] [address] Nov, [facility] [address] [id number] [address] [place] [address], [place] [address] Nov, [facility] [address] [id number] [address] [place] [address], [place] [address] Nov, [facility] [address] [id number] [address] [place] [address], [place] [address] Nov, [facility] [address] [id number] [address] [place] [address], [place] [address] Nov, [facility] [address] [id number] [address] [place] [address], [place] [address] Nov, [facility] [address] [id number] [address] [place] [address], [place] [address] Nov, [facility] [address] [id number] [address] [place] [address], [place] [address] Nov, [facility] [address] [id number] [address] [place] [address], [place] [address] October, [facility] [address] [id number] [address] [place] [address], [place] [address] October, [facility] [address] [id number] [facility] [place] [address] October, [facility] [address] [id number] [address] [place] [address], [place] [address] October, [facility] [address] [id number] [address] [place] [address], [place] [address] October, [facility] [address] [id number] [address] [place] [address], [place] [address] October, [facility] [address] [id number] [address] [place] [address], [place] [address] October, [facility] [address] [id number] [address] [place] [address], [place] [address] October, [facility] [address] [id number] [address] [place] [address], [place] [address] Sep, [facility] [address] [id number] [address] [place] [address], [place] [address] Sep, [facility] [address] [id number] [address] [place] [address], [place] [address] Sep, [facility] [address] [id number] [address] [place] [address], [place] [address] Sep, [facility] [address] [id number] [address] [place] [address], [place] [address] Sep, [facility] [address] [id number] [address] [place] [address], [place] [address] Sep, [facility] [address] [id number] [address] [place] [address], [place] [address] Sep, [facility] [address] [id number] [address] [place] [address], [place] [address] Aug, [facility] [address] [id number] [address] [place] [address], [place] [address] Aug, [facility] [address] [id number] [address] [place] [address], [place] [address] Aug, [facility] [address] [id number] [address] [place] [address], [place] [address] Aug, [facility] [address] [id number] [address] [place] [address], [place] [address] Aug, [facility] [address] [id number] [address] [place] [address], [place] [address] Aug, [facility] [address] [id number] [address] [place] [address], [place] [address] Jul, [facility] [address] [id number] [address] [place] [address], [place] [address] Jul, [facility] [address] [id number] [address] [place] [address], [place] [address] Jul, [facility] [address] [id number] [address] [place] [address], [place] [address] Jul, [facility] [address] [id number] [address] [place] [address], [place] [address] Jul, [facility] [address] [id number] [address] [place] [address], [place] [address] Jul, [facility] [address] [id number] [address] [place] [address], [place] [address] Jun, [facility] [address] [id number] [address] [place] [address], [place] [address] Jun, [facility] [address] [id number] [address] [place] [address], [place] [address] Jun, [facility] [address] [id number] [address] [place] [address], [place] [address] Jun, [facility] [address] [id number] [address] [place] [address], [place] [address] Jun, [facility] [address] [id number] [address] [place] [address], [place] [address] Jun, [facility] [address] [id number] [address] [place] [address], [place] [address] Jun, [facility] [address] [id number] [address] [place] [address], [place] [address] Jun, [facility] [address] [id number] [address] [place] [address], [place] [address] 16 Jun, 2013 [facility] [address] [id number] [address] [place] [address], [place] [address] Jun, [facility] [address] [id number] [address] [place] [address], [place] [address] Jun, [facility] [address] [id number] [address] [place] [address], [place] [address] Jun, [facility] [address] [id number] [address] [place] [address], [place] [address] Jun, [facility] [address] [id number] [address] [place] [address], [place] [address] 30 May, 2013 [facility] [address] [id number] [address] [place] [address], [place] [address] 30 May, 2013 [facility] [address] [id number] [address] [place] [address], [place] [address] 30 May, 2013 [facility] [address] [id number] [address] [place] [address], [place] [address] 30 May, 2013 [facility] [address] [id number] [address] [place] [address], [place] [address] May, [facility] [address] [id number] [address] [place] [address], [place] [address] May, [facility] [address] [id number] [address] [place] [address], [place] [address] May, [facility] [address] [id number] [address] [place] [address], [place] [address] 12 May, 2013 [facility] [address] [id number] [address] [place] [address], [place] [address] 12 May, 2013 [facility] [address] [id number] [address] [place] [address], [place] [address] May, [facility] [address] [id number] [address] [place] [address], [place] [address] May, [facility] [address] [id number] [address] [place] [address], [place] [address] May, [facility] [address] [id number] [address] [place] [address], [place] [address] May, [facility] [address] [id number] [address] [place] [address], [place] [address] May, [facility] [address] [id number] [address] [place] [address], [place] [address] May, [facility] [address] [id number] [address] [place] [address], [place] [address] May, [facility] [address] [id number] [address] [place] [address], [place] [address] May, [facility] [address] [id number] [address] [place] [address], [place] [address] May, [facility] [address] [id number] [address] [place] [address], [place] [address] May, [facility] [address] [id number] [address] [place] [address], [place] [address] May, [facility] [address] [id number] [address] [place] [address], [place] [address] May, [facility] [address] [id number] [address] [place] [address], [place] [address] Apr, [facility] [address] [id number] [address] [place] [address], [place] [address] Apr, [facility] [address] [id number] [address] [place] [address], [place] [address] Apr, [facility] [address] [id number] [address] [place] [address], [place] [address] Apr, [facility] [address] [id number] [address] [place] [address], [place] [address] 08 Mar, 2013 [facility] [address] [id number] [address] [place] [address], [place] [address] 23 Feb, 2012 [facility] [address] [id number] [address] [place] [address], [place] [address] 16 Feb, 2012 [facility] [address] [id number] [address] [place] [address], [place] [address] 13 Feb, 2013 [facility] [address] [id number] [address] [place] [address], [place] [address] 10 Feb, 2013 [facility] [address] [id number] [address] [place] [address], [place] [address] 09 Feb, 2013 [facility] [address] [id number] [address] [place] [address], [place] [address] 09 Feb, 2013 [facility] [address] [id number] [address] [place] [address], [place] [address] Jan, [facility] [address] [id number] [address] [place] [address], [place] [address] Jan, [facility] [address] [id number] [address] [place] [address], [place] [address] Jan, [facility] [address] [id number] [address] [place] [address], [place] [address] Dec, [facility] [address] [id number] [address] [place] [address], [place] [address] Dec, [facility] [address] [id number] [address] [place] [address], [place] [address] Dec, [facility] [address] [id number] [address] [place] [address], [place] [address] 15 Dec, 2012 [facility] [address] [id number] [address] [place] [address] [address] Dec, [facility] [address] [id number] [address] [place] [address], [place] [address] Nov, [facility] [address] [id number] [address] [place] [address], [place] [address] Nov, [facility] [address] [id number] [address] [place] [address], [place] [address] Nov, [facility] [address] [id number] [address] [place] [address], [place] [address] Nov, [facility] [address] [id number] [address] [place] [address], [place] [address] Nov, [facility] [address] [id number] [address] [place] [address], [place] [address] 08 Nov, 2012 [facility] [address] [id number] [address] [place] [address], [place] [address] Nov, [facility] [address] [id number] [address] [place] [address], [place] [address] Nov, [facility] [address] [id number] [address] [place] [address], [place] [address] 05 Nov, 2012 [facility] [address] [id number] [address] [place] [address], [place] [address] Nov, [facility] [address] [id number] [address] [place] [address], [place] [address] October, [facility] [address] [id number] [address] [place] [address], [place] [address] October, [facility] [address] [id number] [address] [place] [address], [place] [address] Sep, [facility] [address] [id number] [address] [place] [address], [place] [address] Sep, [facility] [address] [id number] [address] [place] [address], [place] [address] Sep, [facility] [address] [id number] [address] [place] [address], [place] [address] 06 Sep, 2012 [facility] [address] [id number] [address] [place] [address], [place] [address] Sep, [facility] [address] [id number] [address] [place] [address], [place] [address] Aug, [facility] [address] [id number] [address] [place] [address], [place] [address] Aug, [facility] [address] [id number] [address] [place] [address], [place] [address] Jul, [facility] [address] [id number] [address] [place] [address], [place] [address] Jul, [facility] [address] [id number] [address] [place] [address], [place] [address] Jun, [facility] [address] [id number] [address] [place] [address], [place] [address] Jun, [facility] [address] [id number] [address] [place] [address], [place] [address] May, [facility] [address] [id number] [address] [place] [address], [place] [address] May, [facility] [address] [id number] [address] [place] [address], [place] [address] May, [facility] [address] [id number] [address] [place] [address], [place] [address] May, [facility] [address] [id number] [address] [place] [address], [place] [address] Apr, [facility] [address] [id number] [address] [place] [address], [place] [address] Apr, [facility] [address] [id number] [address] [place] [address], [place] [address] Apr, [facility] [address] [id number] [address] [place] [address], [place] [address] Apr, [facility] [address] [id number] [address] [place] [address], [place] [address] Apr, [facility] [address] [id number] [address] [place] [address], [place] [address] Apr, [facility] [address] [id number] [address] [place] [address], [place] [address] Apr, [facility] [address] [id number] [address] [place] [address], [place] [address] Apr, [facility] [address] [id number] [address] [place] [address], [place] [address] Apr, [facility] [address] [id number] [address] [place] [address], [place] [address] Mar, [facility] [address] [id number] [address] [place] [address], [place] [address] Mar, [facility] [address] [id number] [address] [place] [address], [place] [address] Feb, [facility] [address] [id number] [address] [place] [address], [place] [address] Jan, [facility] [address] [id number] [address] [place] [address], [place] [address] Jan, [facility] [address] [id number] [address] [place] [address], [place] [address] Dec, [facility] [address] [id number] [address] [place] [address] Nov, [facility] [address] [id number] [address] [place] [address], [place] [address] Nov, [facility] [address] [id number] [address] [place] [address], [place] [address] October, [facility] [address] [id number] [address] [place] [address], [place] [address] October, [facility] [address] [id number] [address] [place] [address] Sep, [facility] [address] [id number] [address] [place] [address], [place] [address] Sep, [facility] [address] [id number] [address] [place] [address] May, [facility] [address] [id number] [address] [place] [address], [place] [address] Apr, [facility] [address] [id number] [address] [place] [address] Apr, [facility] [address] [id number] [address] [place] [address], [place] [address] Apr, [facility] [address] [id number] [address] [place] [address] Apr, [facility] [address] [id number] [address] [place] [address] Apr, [facility] [address] [id number] [address] [place] [address], [place] [address] Apr, [facility] [address] [id number] [address] [place] [address] Apr, [facility] [address] [id number] [address] [place] [address] Apr, [facility] [address] [id number] [address] [place] [address] Mar, [facility] [address] [id number] [address] [place] [address] Mar, [facility] [address] [id number] [address] [place] [address] Mar, [facility] [address] [id number] [address] [place] [address] Mar, [facility] [address] [id number] [address] [place] [address], [place] [address] 19 Mar, 2010 [facility] [address] [id number] [address] [place] [address] Mar, IMMUNIZATIONS No Known Immunizations SOCIAL HISTORY [...] surgeryx3 Hospitalization History Mental floor at [facility]
--- OUTSIDE RECORDS SUMMARY | 2019-12-24 19:57 | XMS REPORT ---
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 Name Role Phone GILMER POLKWIN Unavailable PROBLEMS Type Condition ICD9-CM Code AKX86-MX Code Onset Dates Condition S tatus SNOMED Code Problem Nondependent 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 Ac tive 001028232 Problem Other chronic pain G89.29 Active 1 42890672 Problem Unspecified epilepsy without mention of intractable ep ilepsy G40.909 Active 89601477 Problem Hyperlipidemia, unspecified E78.5 Ac tive 77678951 Problem Hypertension I10 Active 8004681 3 Problem Esophageal reflux K21.9 Active 23 9634735 Problem Rheumatoid arthritis M06.9 Active 26064393 Problem Cough R05 Active 26524773 Problem Acquired hypothyroidism E03.9 Active 115156991 Problem Unspecified open-angle glaucoma, stage unspecified H40.10X0 Feb, Active 87654432 Problem Presbyopia H52.4 Active 82687956 Problem Insomnia G47.00 Active 510402270 Problem Arthralgia M25.50 Active 96514085 Problem Thyroid nodule E04.1 Active 31640 5005 Problem Anxiety disorder, unspecified F41.9 Active 234715109 Problem Chronic tension-type headache, intractable G44.221 Active 211774388 Problem Neuropathy G62.9 Active 711470662 Problem Goiter E04.9 Active 0147177 Problem Multinodular goiter E04.2 Active 447822542 Problem Carpal tunnel syndrome of left wrist G56.02 Active 610549612944110 Problem Chronic obstructive pulmonary disease, unspecified COPD ty pe J44.9 Active 20194395 Problem BMI 40.0-44.9, adult Z68.41 Active 078433088 Problem Seasonal allergic rhinitis due to pollen J30.1 Active 12670156 Problem Depression F32.9 Active 58459848 Problem Essential hypertension I10 Active 28465903 Problem Depressive disorder F32.9 Active 29655969 Problem Right-sided low back pain without sciatica M54.5 Active 394697091 Problem Reactive airway disease with out complication, unspecified asthma severity, unspecified whether persistent J45.909 Active 993202239831 Problem Urge incontinence of urine N39.41 Act chen 69901330 Problem Abnormal laboratory test R89.9 Activ e 748566598 Problem COPD with exacerbation J44.1 Active 983236661 ALLERGIES No Information ENCOUNTERS Encounter Location Date Diagnosis [place] [address] [address] October, Acquired hypothyroidism E03. [address] [address] October, Acute gastritis without hemo rrhage, unspecified gastritis type K29.00 ; Epigastric pain R10.13 ; Essential hypertension I10 ; Screening for colon cancer Z12.11 and BMI 40.0-44.9, adult Z68.41 [place] [address] [address] October, [facility] [address] [address] October, Chest pain R07.9 and Morbid obesity E66.01 [facility] [address] [address] Sep, Generalized abdominal pain R 10.84 ; Morbid obesity E66.01 ; Non-intractable vomiting with nausea, unspecified vomiting type R11.2 and Seasonal allergic rhinitis due to pollen J30.1 [facility] [place] [address] [address] Jul, COPD with exacerbation J44.1 ; Viral upper respiratory tract infection J06.9 and Morbid obesity E66.01 [facility] [place] [address] [address] Jun, Viral upper respiratory trac t infection J06.9 [place] [address] [address] Apr, Abnormal laboratory test R89 .9 [facility] [address] [facility] [id number] [address] [place] [address] Apr, Abnormal laboratory test R89 .9 [facility] [address] [place] [id number] [place] [address] Apr, Abnormal laboratory test R89 .9 [facility] [address] [place] [id number] [address] [place] [address] Apr, [place] [address] [address] [place] [id number] [address] [place] [address] Apr, [place] [address] [address] Apr, Nonintractable episodic head ache, unspecified headache type R51 ; Urge incontinence of urine N39.41 ; BMI 40.0-44.9, adult Z68.41 ; Myalgia M79.10 and Acute cystitis without hematuria N30.00 [place] [address] [address] [place] [id number] [address] [place] [address] Mar, Nasal congestion R09.81 ; Lo w back pain M54.5 ; Reactive airway disease without complication, unspecified asthma severity, unspecified whether persistent J45.909 ; Other chronic pain G89.29 ; Acute cystitis with hematuria N30.01 and BMI 40.0-44.9, adult Z68.41 [facility] [address] [place] [id number] [address] [place] [address] Mar, Acute cystitis with hematuri a N30.01 [facility] [address] [place] [id number] [place] [address] Mar, BMI 40.0-44.9, adult Z68.41 ; Acute cystitis with hematuria N30.01 ; Acute bilateral low back pain without sciatica M54.5 and Nausea R11.0 [facility] [address] [place] [id number] [address] [place] [address] Mar, Hypertension I10 ; Acquired hypothyroidism E03.9 ; Esophageal reflux K21.9 ; Chronic obstructive pulmonary disease, unspecified COPD type J44.9 and BMI 40.0-44.9, adult Z68.41 [place] [address] [address] Mar, Hypertension I10 [place] [address] [address] Nov, Hyperlipidemia, unspecified E78.5 [place] [address] [address] October, Chest pain, unspecified type R07.9 and Acquired hypothyroidism E03.9 [place] [address] [address] October, Chest pain, unspecified type R07.9 ; Family history of coronary artery disease Z82.49 ; Carpal tunnel syndrome of left wrist G56.02 ; Hypertension I10 ; Esophageal reflux K21.9 ; Arthralgia M25.50 ; Acquired hypothyroidism E03.9 ; Cough R05 ; Nausea R11.0 ; Weight gain R63.5 and BMI 45.0-49.9, adult Z68.42 [place] [address] [address] Jun, Acquired hypothyroidism E03. 9 and Cough R05 [place] [address] [address] May, [place] [address] [address] Feb, Tarsal tunnel syndrome of timi th lower extremities G57.53 and Neuropathy G62.9 [place] [address] [address] Dec, Pleuritis R09.1 [place] [address] [address] Nov, [place] [address] [place] [address] October, Arthralgia, unspecified join t M25.50 and Allergy, initial encounter T78.40XA [place] [address] [place] [address] October, [place] [address] [address] October, Acute recurrent maxillary si nusitis J01.01 and Arthralgia M25.50 [place] [address] [address] Sep, Pharyngitis due to other org anism J02.8 [place] [address] [address] Aug, Acute nasopharyngitis J00 [place] [address] [address] Aug, Multinodular goiter E04.2 [place] [address] [address] Aug, Thyroid nodule E04.1 [place] [address] [address] Jul, Tarsal tunnel syndrome of timi th lower extremities G57.53 [place] [address] [address] Jun, Pneumonia due to infectious organism, unspecified laterality, unspecified part of lung J18.9 [place] [address] [address] Jun, Bronchospasm with bronchitis , acute J20.9 [place] [address] [address] [place] [id number] [address] [place] [address] May, Acute non-recurrent frontal sinusitis J01.10 [place] [address] [address] May, Flat foot [pes planus] (acqu ired), left foot M21.42 ; Flat foot [pes planus] (acquired), right foot M21.41 and Neuropathy G62.9 [place] [address] [address] Apr, Chronic tension-type headach e, intractable G44.221 ; Right lower quadrant abdominal pain R10.31 ; Cervicalgia M54.2 ; Acute gastritis without hemorrhage, unspecified gastritis type K29.00 and Hypertension I10 [place] [address] [address] Mar, Depression F32.9 and Anxiety disorder, unspecified F41.9 [place] [address] [address] Feb, Depressive disorder F32.9 an d Anxiety disorder, unspecified F41.9 [place] [address] [address] Jan, Dysuria R30.0 ; Lower abdomi nal pain R10.30 ; Acute bilateral low back pain without sciatica M54.5 ; Nausea and vomiting, unspecified intactability, vomiting of unspecified type R11.2 ; Pain in right foot M79.671 and Pain of left foot M79.672 [place] [address] [address] Dec, Urinary tract infection, sit e not specified N39.0 [place] [address] [address] Dec, [place] [address] [address] Nov, [place] [address] [address] Nov, Dysuria R30.[address] [address] Nov, Dysuria R30.0 and Acute cyst itis with hematuria N30.01 [facility] [address] [address] October, Nausea R11.0 [facility] [address] [place] [id number] [place] [address] October, Thyroid nodule E04.1 ; Carpa l tunnel syndrome, left upper limb G56.02 ; Carpal tunnel syndrome, right upper limb G56.01 and Constipation, unspecified constipation type K59.00 [facility] [address] [address] October, [place] [address] [address] October, Thyroid nodule E04.1 [place] [address] [address] October, Cold thyroid nodule E04.1 [place] [address] [address] October, [place] [address] [address] Sep, Thyroid nodule E04.1 [place] [address] [address] Sep, Thyroid nodule E04.1 [place] [address] [address] Sep, Thyroid nodule E04.1 ; Hyper tension I10 ; Esophageal reflux K21.9 and Hyperlipidemia, unspecified E78.5 [place] [address] [address] Aug, Other chronic pain G89.29 ; Sinusitis J32.9 and Hypertension I10 [place] [address] [address] [place] [id number] [place] [address] Jul, [place] [address] [address] [facility] [id number] [address] [place] [address] 15 Jul, 2015 [facility] [address] [place] [id number] [address] [place] [address] 10 Jul, 2015 Insomnia G47.00 and Arthralg ia M25.50 [facility] [address] [place] [id number] [address] [place] [address] 10 Jul, 2015 Depressive disorder F32.9 an d Anxiety disorder, unspecified F41.9 [facility] [address] [facility] [id number] [address] [place] [address] May, Right-sided low back pain wi thout sciatica M54.5 and Depression F32.9 [place] [address] [place] [id number] [address] [place] [address] Apr, Hematuria R31.9 [place] [address] [address] Mar, Other chronic pain G89.29 [place] [address] [address] [place] [id number] [address] [place] [address] Mar, Other chronic pain G89.29 [facility] [address] [place] [id number] [place] [address] Feb, [facility] [address] [place] [id number] [place] [address] Feb, Other chronic pain 338.29 ; Dysuria 788.1 ; UTI (urinary tract infection) 599.0 ; Insomnia 780.52 ; Hot flashes 627.2 and Hypertension 401.9 [facility] [address] [facility] [id number] [address] [place] [address] 14 Feb, 2015 Dysuria 788.1 [facility] [address] [place] [id number] [place] [address] 02 Feb, 2015 [facility] [address] [place] [id number] [place] [address] Jan, [facility] [address] [id number] [address] [place] [address] Jan, [facility] [address] [id number] [address] [place] [address] Jan, Fibromyalgia 729.1 ; Hyperte nsion 401.9 ; Dysthymia 300.4 and Hot flashes 627.2 [facility] [address] [id number] [address] [place] [address] Dec, [facility] [address] [id number] [address] [place] [address] Dec, [facility] [address] [id number] [address] [place] [address] Dec, [facility] [address] [id number] [address] [place] [address] Nov, Other chronic pain 338.29 [facility] [address] [id number] [address] [place] [address] October, [facility] [address] [id number] [address] [place] [address] October, [facility] [address] [id number] [address] [place] [address] Sep, [facility] [address] [id number] [address] [place] [address] Sep, [facility] [address] [id number] [address] [place] [address] Aug, [facility] [address] [id number] [address] [place] [address] Aug, [facility] [address] [id number] [address] [place] [address] Aug, [facility] [address] [id number] [address] [place] [address] Aug, [facility] [address] [id number] [address] [place] [address] Aug, [facility] [address] [id number] [address] [place] [address], [place] [address] Aug, [facility] [address] [id number] [address] [place] [address], [place] [address] Aug, [facility] [address] [id number] [address] [place] [address], [place] [address] Aug, [facility] [address] [id number] [address] [place] [address], [place] [address] Aug, [facility] [address] [id number] [address] [place] [address], [place] [address] Aug, [facility] [address] [id number] [address] [place] [address], [place] [address] Aug, [facility] [address] [id number] [address] [place] [address], [place] [address] Aug, [facility] [address] [id number] [address] [place] [address], [place] [address] Aug, [facility] [address] [id number] [address] [place] [address], [place] [address] Aug, [facility] [address] [id number] [address] [place] [address], [place] [address] Jul, [facility] [address] [id number] [address] [place] [address], [place] [address] Jul, 2014 [facility] [address] [id number] [address] [place] [address], [place] [address] Jul, 2014 [facility] [address] [id number] [address] [place] [address], [place] [address] Jul, 2014 [facility] [address] [id number] [address] [place] [address], [place] [address] Jul, 2014 [facility] [address] [id number] [address] [place] [address] 12 Jul, 2014 [facility] [address] [id number] [address] [place] [address], [place] [address] Jun, [facility] [address] [id number] [address] [place] [address], [place] [address] Jun, [facility] [address] [id number] [address] [place] [address], [place] [address] Jun, [facility] [address] [id number] [address] [place] [address], [place] [address] Jun, [facility] [address] [id number] [address] [place] [address], [place] [address] May, [facility] [address] [id number] [address] [place] [address], [place] [address] May, [facility] [address] [id number] [address] [place] [address], [place] [address] May, [facility] [address] [id number] [address] [place] [address], [place] [address] May, [facility] [address] [id number] [address] [place] [address], [place] [address] May, [facility] [address] [id number] [address] [place] [address], [place] [address] May, [facility] [address] [id number] [address] [place] [address], [place] [address] May, [facility] [address] [id number] [address] [place] [address], [place] [address] May, [facility] [address] [id number] [address] [place] [address], [place] [address] May, [facility] [address] [id number] [address] [place] [address], [place] [address] May, [facility] [address] [id number] [address] [place] [address], [place] [address] Apr, [facility] [address] [id number] [address] [place] [address] Apr, [facility] [address] [id number] [address] [place] [address], [place] [address] Apr, [facility] [address] [id number] [address] [place] [address] Apr, [facility] [address] [id number] [address] [place] [address], [place] [address] Apr, [facility] [address] [id number] [address] [place] [address] Apr, [facility] [address] [id number] [address] [place] [address], [place] [address] Apr, [facility] [address] [id number] [address] [place] [address], [place] [address] Apr, [facility] [address] [id number] [address] [place] [address], [place] [address] Apr, [facility] [address] [id number] [address] [place] [address] Mar, [facility] [address] [id number] [address] [place] [address] Mar, [facility] [address] [id number] [address] [place] [address], [place] [address] Mar, [facility] [address] [id number] [address] [place] [address] Mar, [facility] [address] [id number] [address] [place] [address] Mar, [facility] [address] [id number] [address] [place] [address] Mar, [facility] [address] [id number] [address] [place] [address] Mar, [facility] [address] [id number] [address] [place] [address] Mar, [facility] [address] [id number] [address] [place] [address] 30 Sep, 2013 [facility] [address] [id number] [facility] [place] [address] 30 Sep, 2013 [facility] [address] [id number] [facility] [place] [address] 24 Sep, 2013 [facility] [address] [id number] [address] [place] [address], [place] [address] 24 Sep, 2013 [facility] [address] [id number] [address] [place] [address], [place] [address] 22 Sep, 2013 [facility] [address] [id number] [address] [place] [address], [place] [address] 22 Sep, 2013 [facility] [address] [id number] [address] [place] [address], [place] [address] 10 Sep, 2013 [facility] [address] [id number] [address] [place] [address], [place] [address] 10 Sep, 2013 [facility] [address] [id number] [address] [place] [address], [place] [address] 03 Sep, 2013 [facility] [address] [id number] [address] [place] [address], [place] [address] 03 Sep, 2013 [facility] [address] [id number] [address] [place] [address], [place] [address] 03 Sep, 2013 [facility] [address] [id number] [address] [place] [address], [place] [address] 03 Sep, 2013 [facility] [address] [id number] [address] [place] [address], [place] [address] 03 Sep, 2013 [facility] [address] [id number] [address] [place] [address], [place] [address] 03 Feb, 2013 [facility] [address] [id number] [address] [place] [address], [place] [address] Jan, 2013 [facility] [address] [id number] [address] [place] [address], [place] [address] Jan, [facility] [address] [id number] [address] [place] [address], [place] [address] Dec, [facility] [address] [id number] [address] [place] [address], [place] [address] Dec, [facility] [address] [id number] [address] [place] [address], [place] [address] Dec, [facility] [address] [id number] [address] [place] [address], [place] [address] Dec, [facility] [address] [id number] [address] [place] [address], [place] [id number] Dec, [facility] [address] [id number] [address] [place] [address], [place] [address] Dec, [facility] [address] [id number] [address] [place] [address], [place] [address] Dec, [facility] [address] [id number] [address] [place] [address], [place] [address] Dec, [facility] [address] [id number] [address] [place] [address], [place] [address] Dec, [facility] [address] [id number] [address] [place] [address], [place] [address] Dec, [facility] [address] [id number] [address] [place] [address], [place] [address] Dec, [facility] [address] [id number] [address] [place] [address], [place] [address] Dec, [facility] [address] [id number] [address] [place] [address], [place] [address] Dec, [facility] [address] [id number] [address] [place] [address], [place] [address] Dec, [facility] [address] [id number] [address] [place] [address], [place] [address] Dec, [facility] [address] [id number] [address] [place] [address], [place] [address] Dec, [facility] [address] [id number] [address] [place] [address], [place] [address] Dec, [facility] [address] [id number] [address] [place] [address], [place] [address] Dec, [facility] [address] [id number] [address] [place] [address], [place] [address] Dec, [facility] [address] [id number] [address] [place] [address], [place] [address] Nov, [facility] [address] [id number] [address] [place] [address], [place] [address] Nov, [facility] [address] [id number] [address] [place] [address], [place] [address] Nov, [facility] [address] [id number] [address] [place] [address], [place] [address] Nov, [facility] [address] [id number] [address] [place] [address], [place] [address] Nov, [facility] [address] [id number] [address] [place] [address], [place] [address] Nov, [facility] [address] [id number] [address] [place] [address], [place] [address] Nov, [facility] [address] [id number] [address] [place] [address], [place] [address] Nov, [facility] [address] [id number] [address] [place] [address], [place] [address] Nov, [facility] [address] [id number] [address] [place] [address], [place] [address] October, [facility] [address] [id number] [address] [place] [address], [place] [address] October, [facility] [address] [id number] [address] [place] [address], [place] [address] October, [facility] [address] [address] [id number] [address] [place] [address] October, [facility] [address] [id number] [address] [place] [address] October, [facility] [address] [id number] [address] [place] [address], [place] [address] October, [facility] [address] [id number] [address] [place] [address], [place] [address] October, [facility] [address] [id number] [address] [place] [address], [place] [address] October, [facility] [address] [id number] [address] [place] [address], [place] [address] Sep, [facility] [address] [id number] [address] [place] [address], [place] [address] Sep, [facility] [address] [id number] [address] [place] [address], [place] [address] Sep, [facility] [address] [id number] [address] [place] [address], [place] [address] Sep, [facility] [address] [id number] [address] [place] [address], [place] [address] Sep, [facility] [address] [id number] [address] [place] [address], [place] [address] Sep, [facility] [address] [id number] [address] [place] [address], [place] [address] Sep, [facility] [address] [id number] [address] [place] [address], [place] [address] Aug, [facility] [address] [id number] [address] [place] [address], [place] [address] Aug, [facility] [address] [id number] [address] [place] [address], [place] [address] Aug, [facility] [address] [id number] [address] [place] [address], [place] [address] Aug, [facility] [address] [id number] [address] [place] [address], [place] [address] Aug, [facility] [address] [id number] [address] [place] [address], [place] [address] Aug, [facility] [address] [id number] [address] [place] [address], [place] [address] Jul, [facility] [address] [id number] [address] [place] [address], [place] [address] Jul, [facility] [address] [id number] [address] [place] [address], [place] [address] Jul, [facility] [address] [id number] [address] [place] [address], [place] [address] Jul, [facility] [address] [id number] [address] [place] [address], [place] [address] Jul, [facility] [address] [id number] [address] [place] [address], [place] [address] Jul, [facility] [address] [id number] [address] [place] [address], [place] [address] Jun, [facility] [address] [id number] [address] [place] [address], [place] [address] Jun, [facility] [address] [id number] [address] [place] [address], [place] [address] Jun, [facility] [address] [id number] [address] [place] [address], [place] [address] Jun, [facility] [address] [id number] [address] [place] [address], [place] [address] Jun, [facility] [address] [id number] [address] [place] [address], [place] [address] Jun, [facility] [address] [id number] [address] [place] [address], [place] [address] Jun, [facility] [address] [id number] [address] [place] [address], [place] [address] Jun, [facility] [address] [id number] [address] [place] [address], [place] [address] Jun, [facility] [address] [id number] [address] [place] [address], [place] [address] 14 Jun, 2013 [facility] [address] [id number] [address] [place] [address], [place] [address] Jun, [facility] [address] [id number] [address] [place] [address], [place] [address] Jun, [facility] [address] [id number] [address] [place] [address], [place] [address] Jun, [facility] [address] [id number] [address] [place] [address], [place] [address] 30 May, 2013 [facility] [address] [id number] [address] [place] [address], [place] [address] 30 May, 2013 [facility] [address] [id number] [address] [place] [address], [place] [address] 30 May, 2013 [facility] [address] [id number] [address] [place] [address], [place] [address] May, [facility] [address] [id number] [address] [place] [address], [place] [address] May, [facility] [address] [id number] [address] [place] [address], [place] [address] 14 May, 2013 [facility] [address] [id number] [address] [place] [address], [place] [address] 14 May, 2013 [facility] [address] [id number] [address] [place] [address], [place] [address] May, [facility] [address] [id number] [address] [place] [address], [place] [address] May, [facility] [address] [id number] [address] [place] [address], [place] [address] May, [facility] [address] [id number] [address] [place] [address], [place] [address] May, [facility] [address] [id number] [address] [place] [address], [place] [address] May, [facility] [address] [id number] [address] [place] [address], [place] [address] May, [facility] [address] [id number] [address] [place] [address], [place] [address] May, [facility] [address] [id number] [address] [place] [address], [place] [address] May, [facility] [address] [id number] [address] [place] [address], [place] [address] May, [facility] [address] [id number] [address] [place] [address], [place] [address] May, [facility] [address] [id number] [address] [place] [address], [place] [address] May, [facility] [address] [id number] [address] [place] [address], [place] [address] May, [facility] [address] [id number] [address] [place] [address], [place] [address] May, [facility] [address] [id number] [address] [place] [address], [place] [address] May, [facility] [address] [id number] [address] [place] [address] Apr, [facility] [address] [id number] [address] [place] [address], [place] [address] Apr, [facility] [address] [id number] [address] [place] [address], [place] [address] Apr, [facility] [address] [id number] [address] [place] [address], [place] [address] Apr, [facility] [address] [id number] [address] [place] [address], [place] [address] 08 Mar, 2013 [facility] [address] [id number] [address] [place] [address], [place] [address] 23 Feb, 2012 [facility] [address] [id number] [address] [place] [address], [place] [address] 16 Feb, 2012 [facility] [address] [id number] [address] [place] [address], [place] [address] 13 Feb, 2012 [facility] [address] [id number] [address] [place] [address], [place] [address] 10 Feb, 2012 [facility] [address] [id number] [address] [place] [address], [place] [address] 09 Feb, 2013 [facility] [address] [id number] [address] [place] [address], [place] [address] 09 Feb, 2013 [facility] [address] [id number] [address] [place] [address], [place] [address] Jan, [facility] [address] [id number] [address] [place] [address], [place] [address] Jan, [facility] [address] [id number] [address] [place] [address], [place] [address] Jan, [facility] [address] [id number] [address] [place] [address], [place] [address] Dec, [facility] [address] [id number] [address] [place] [address], [place] [address] Dec, [facility] [address] [id number] [address] [place] [address], [place] [address] Dec, [facility] [address] [id number] [address] [place] [address], [place] [address] 15 Dec, 2012 [facility] [address] [id number] [address] [place] [address], [place] [address] Dec, [facility] [address] [id number] [address] [place] [address], [place] [address] Nov, [facility] [address] [id number] [address] [place] [address], [place] [address] 26 Nov, 2012 [facility] [address] [id number] [address] [place] [address], [place] [address] 20 Nov, 2012 [facility] [address] [id number] [address] [place] [address], [place] [address] 13 Nov, 2012 [facility] [address] [id number] [address] [place] [address], [place] [address] Nov, [facility] [address] [id number] [address] [place] [address], [place] [address] 08 Nov, 2012 [facility] [address] [id number] [address] [place] [address], [place] [address] 07 Nov, 2012 [facility] [address] [id number] [address] [place] [address], [place] [address] 06 Nov, 2012 [facility] [address] [id number] [address] [place] [address], [place] [address] 05 Nov, 2012 [facility] [address] [id number] [address] [place] [address], [place] [address] Nov, [facility] [address] [id number] [address] [place] [address], [place] [address] October, [facility] [address] [id number] [address] [place] [address], [place] [address] October, [facility] [address] [id number] [address] [place] [address], [place] [address] Sep, [facility] [address] [id number] [address] [place] [address], [place] [address] Sep, [facility] [address] [id number] [address] [place] [address], [place] [address] Sep, [facility] [address] [id number] [address] [place] [address], [place] [address] 06 Sep, 2012 [facility] [address] [id number] [address] [place] [address], [place] [address] Sep, [facility] [address] [id number] [address] [place] [address], [place] [address] Aug, [facility] [address] [id number] [address] [place] [address], [place] [address] Aug, [facility] [address] [id number] [address] [place] [address], [place] [address] Jul, [facility] [address] [id number] [address] [place] [address], [place] [address] Jul, [facility] [address] [id number] [address] [place] [address], [place] [address] Jun, [facility] [address] [id number] [address] [place] [address], [place] [address] Jun, [facility] [address] [id number] [address] [place] [address], [place] [address] May, [facility] [address] [id number] [address] [place] [address], [place] [address] May, [facility] [address] [id number] [address] [place] [address], [place] [address] May, [facility] [address] [id number] [address] [place] [address], [place] [address] May, [facility] [address] [id number] [address] [place] [address], [place] [address] Apr, [facility] [address] [id number] [address] [place] [address], [place] [address] Apr, [facility] [address] [id number] [address] [place] [address], [place] [address] Apr, [facility] [address] [id number] [address] [place] [address], [place] [address] Apr, [facility] [address] [id number] [address] [place] [address], [place] [address] Apr, [facility] [address] [id number] [address] [place] [address], [place] [address] 14 Apr, 2012 [facility] [address] [id number] [address] [place] [address], [place] [address] 14 Apr, 2012 [facility] [address] [id number] [address] [place] [address], [place] [address] Apr, [facility] [address] [id number] [address] [place] [address], [place] [address] Apr, [facility] [address] [id number] [address] [place] [address], [place] [address] 15 Mar, 2012 [facility] [address] [id number] [address] [place] [address], [place] [address] Mar, [facility] [address] [id number] [address] [place] [address], [place] [address] Feb, [facility] [address] [id number] [address] [place] [address], [place] [address] Jan, [facility] [address] [id number] [address] [place] [address], [place] [address] Jan, [facility] [address] [id number] [address] [place] [address], [place] [address] Dec, [facility] [address] [id number] [address] [place] [address], [place] [address] Nov, [facility] [address] [id number] [address] [place] [address], [place] [address] Nov, [facility] [address] [id number] [address] [place] [address], [place] [address] October, [facility] [address] [id number] [address] [place] [address], [place] [address] October, [facility] [address] [id number] [address] [place] [address], [place] [address] Sep, [facility] [address] [id number] [address] [place] [address], [place] [address] Sep, [facility] [address] [id number] [address] [place] [address] May, [facility] [address] [id number] [address] [place] [address] Apr, [facility] [address] [id number] [address] [place] [address] Apr, [facility] [address] [id number] [address] [place] [address] Apr, [facility] [address] [id number] [address] [place] [address] Apr, [facility] [address] [id number] [address] [place] [address] Apr, [facility] [address] [id number] [address] [place] [address] Apr, [facility] [address] [id number] [address] [place] [address] Apr, [facility] [address] [id number] [address] [place] [address] Apr, [facility] [address] [id number] [address] [place] [address] Mar, [facility] [address] [id number] [address] [place] [address] Mar, [facility] [address] [id number] [address] [place] [address] Mar, [facility] [address] [id number] [address] [place] [address] Mar, [facility] [address] [id number] [address] [place] [address] Mar, [facility] [address] [id number] [address] [place] [address] Mar, IMMUNIZATIONS No Known Immunizations SOCIAL HISTORY [...] surgeryx3 Hospitalization History Mental floor at [facility]
--- OUTSIDE RECORDS SUMMARY | 2019-12-24 19:57 | XMS REPORT ---
Author Author Trey Quesada Organization [facility] Address [address] [place] [address] Care Team Providers Care Shrimper Name Role Phone JAILENE Quesada Unavailable PROBLEMS Type Condition ICD9-CM Code AXK10-CB Code Onset Dates Condition S tatus SNOMED Code Problem Nondependent 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 Ac tive 703832749 Problem Other chronic pain G89.29 Active 1 67363142 Problem Unspecified epilepsy without mention of intractable ep ilepsy G40.909 Active 43811389 Problem Hyperlipidemia, unspecified E78.5 Ac tive 01252338 Problem Hypertension I10 Active 2129427 3 Problem Esophageal reflux K21.9 Active 23 6152078 Problem Rheumatoid arthritis M06.9 Active 87179642 Problem Cough R05 Active 48333368 Problem Acquired hypothyroidism E03.9 Active 455276679 Problem Unspecified open-angle glaucoma, stage unspecified H40.10X0 Feb, Active 63803133 Problem Presbyopia H52.4 Active 12158271 Problem Insomnia G47.00 Active 835649198 Problem Arthralgia M25.50 Active 41232235 Problem Thyroid nodule E04.1 Active 57957 5005 Problem Anxiety disorder, unspecified F41.9 Active 074857334 Problem Chronic tension-type headache, intractable G44.221 Active 049086568 Problem Neuropathy G62.9 Active 837194191 Problem Goiter E04.9 Active 5435149 Problem Multinodular goiter E04.2 Active 401262117 Problem Carpal tunnel syndrome of left wrist G56.02 Active [id number] Problem Chronic obstructive pulmonary disease, unspecified COPD ty pe J44.9 Active 87542141 Problem BMI 40.0-44.9, adult Z68.41 Active 118015175 Problem Seasonal allergic rhinitis due to pollen J30.1 Active 03072287 Problem Depression F32.9 Active 01109165 Problem Essential hypertension I10 Active 39269035 Problem Depressive disorder F32.9 Active 84898476 Problem Right-sided low back pain without sciatica M54.5 Active 483761011 Problem Reactive airway disease with out complication, unspecified asthma severity, unspecified whether persistent J45.909 Active 458671805948 Problem Urge incontinence of urine N39.41 Act chen 41796169 Problem Abnormal laboratory test R89.9 Activ e 821917193 Problem COPD with exacerbation J44.1 Active 764212919 ALLERGIES No Information ENCOUNTERS Encounter Location Date Diagnosis [place] [address] [address] October, Acquired hypothyroidism E03. 9 [place] [address] [address] October, Acute gastritis without hemo rrhage, unspecified gastritis type K29.00 ; Epigastric pain R10.13 ; Essential hypertension I10 ; Screening for colon cancer Z12.11 and BMI 40.0-44.9, adult Z68.41 [place] [address] [address] October, [facility] [place] [address] [address] October, Chest pain R07.9 and Morbid obesity E66.01 [facility] [place] [address] [address] Sep, Generalized abdominal pain R 10.84 ; Morbid obesity E66.01 ; Non-intractable vomiting with nausea, unspecified vomiting type R11.2 and Seasonal allergic rhinitis due to pollen J30.1 [facility] [place] [address] [address] [place] [id number] [place] [address] Jul, COPD with exacerbation J44.1 ; Viral upper respiratory tract infection J06.9 and Morbid obesity E66.01 [facility] [address] [place] [id number] [place] [address] Jun, Viral upper respiratory trac t infection J06.9 [facility] [address] [place] [id number] [place] [address] Apr, Abnormal laboratory test R89 .9 [place] [address] [place] [id number] [place] [address] Apr, Abnormal laboratory test R89 .9 [facility] [address] [place] [id number] [place] [address] Apr, Abnormal laboratory test R89 .9 [facility] [address] [place] [id number] [place] [address] Apr, [place] [address] [place] [id number] [place] [address] Apr, [place] [address] [address] Apr, Nonintractable episodic head ache, unspecified headache type R51 ; Urge incontinence of urine N39.41 ; BMI 40.0-44.9, adult Z68.41 ; Myalgia M79.10 and Acute cystitis without hematuria N30.00 [place] [address] [address] Mar, Nasal congestion R09.81 ; Lo w back pain M54.5 ; Reactive airway disease without complication, unspecified asthma severity, unspecified whether persistent J45.909 ; Other chronic pain G89.29 ; Acute cystitis with hematuria N30.01 and BMI 40.0-44.9, adult Z68.41 [facility] [address] [place] [id number] [place] [address] Mar, Acute cystitis with hematuri a N30.01 [facility] [address] [place] [id number] [place] [address] Mar, BMI 40.0-44.9, adult Z68.41 ; Acute cystitis with hematuria N30.01 ; Acute bilateral low back pain without sciatica M54.5 and Nausea R11.0 [place] [address] [address] [place] [id number] [place] [address] Mar, Hypertension I10 ; Acquired hypothyroidism E03.9 ; Esophageal reflux K21.9 ; Chronic obstructive pulmonary disease, unspecified COPD type J44.9 and BMI 40.0-44.9, adult Z68.41 [place] [address] [address] Mar, Hypertension I10 [place] [address] [address] Nov, Hyperlipidemia, unspecified E78.5 [place] [address] [address] October, Chest pain, unspecified type R07.9 and Acquired hypothyroidism E03.9 [place] [address] [address] October, Chest pain, unspecified type R07.9 ; Family history of coronary artery disease Z82.49 ; Carpal tunnel syndrome of left wrist G56.02 ; Hypertension I10 ; Esophageal reflux K21.9 ; Arthralgia M25.50 ; Acquired hypothyroidism E03.9 ; Cough R05 ; Nausea R11.0 ; Weight gain R63.5 and BMI 45.0-49.9, adult Z68.42 [place] [address] [address] Jun, Acquired hypothyroidism E03. 9 and Cough R05 [place] [address] [address] May, [place] [address] [address] Feb, Tarsal tunnel syndrome of timi th lower extremities G57.53 and Neuropathy G62.9 [place] [address] [address] Dec, Pleuritis R09.1 [place] [address] [address] Nov, [place] [address] [place] [id number] [place] [address] October, Arthralgia, unspecified join t M25.50 and Allergy, initial encounter T78.40XA [place] [address] [place] [id number] [place] [address] October, [place] [address] [address] October, Acute recurrent maxillary si nusitis J01.01 and Arthralgia M25.50 [place] [address] [place] [id number] [place] [address] Sep, Pharyngitis due to other org anism J02.8 [place] [address] [place] [id number] [place] [address] Aug, Acute nasopharyngitis J00 [place] [address] [address] Aug, Multinodular goiter E04.2 [place] [address] [address] Aug, Thyroid nodule E04.1 [place] [address] [place] [id number] [place] [address] Jul, Tarsal tunnel syndrome of timi th lower extremities G57.53 [place] [address] [place] [address] Jun, Pneumonia due to infectious organism, unspecified laterality, unspecified part of lung J18.9 [place] [address] [address] Jun, Bronchospasm with bronchitis , acute J20.9 [place] [address] [place] [id number] [place] [address] May, Acute non-recurrent frontal sinusitis J01.10 [place] [address] [address] May, Flat foot [pes planus] (acqu ired), left foot M21.42 ; Flat foot [pes planus] (acquired), right foot M21.41 and Neuropathy G62.9 [place] [address] [address] Apr, Chronic tension-type headach e, intractable G44.221 ; Right lower quadrant abdominal pain R10.31 ; Cervicalgia M54.2 ; Acute gastritis without hemorrhage, unspecified gastritis type K29.00 and Hypertension I10 [place] [address] [address] Mar, Depression F32.9 and Anxiety disorder, unspecified F41.9 [place] [address] [address] Feb, Depressive disorder F32.9 an d Anxiety disorder, unspecified F41.9 [place] [address] [address] Jan, Dysuria R30.0 ; Lower abdomi nal pain R10.30 ; Acute bilateral low back pain without sciatica M54.5 ; Nausea and vomiting, unspecified intactability, vomiting of unspecified type R11.2 ; Pain in right foot M79.671 and Pain of left foot M79.672 [place] [address] [address] Dec, Urinary tract infection, sit e not specified N39.0 [place] [address] [address] Dec, [place] [address] [address] Nov, [place] [address] [address] Nov, Dysuria R30.0 [place] [address] [address] Nov, Dysuria R30.0 and Acute cyst itis with hematuria N30.01 [place] [address] [address] October, Nausea R11.0 [place] [address] [address] October, Thyroid nodule E04.1 ; Carpa l tunnel syndrome, left upper limb G56.02 ; Carpal tunnel syndrome, right upper limb G56.01 and Constipation, unspecified constipation type K59.00 [place] [address] [address] October, [place] [address] [address] October, Thyroid nodule E04.1 [place] [address] [address] October, Cold thyroid nodule E04.1 [place] [address] [address] October, [place] [address] [address] Sep, Thyroid nodule E04.1 [place] [address] [address] Sep, Thyroid nodule E04.1 [place] [address] [address] Sep, Thyroid nodule E04.1 ; Hyper tension I10 ; Esophageal reflux K21.9 and Hyperlipidemia, unspecified E78.5 [place] [address] [place] [id number] [place] [address] Aug, Other chronic pain G89.29 ; Sinusitis J32.9 and Hypertension I10 [place] [address] [address] Jul, [facility] [address] [facility] [id number] [address] [place] [address] 15 Jul, 2015 [facility] [address] [facility] [id number] [address] [place] [address] 10 Jul, 2015 Insomnia G47.00 and Arthralg ia M25.50 [facility] [address] [place] [id number] [place] [address] Jul, Depressive disorder F32.9 an d Anxiety disorder, unspecified F41.9 [facility] [address] [place] [id number] [place] [address] May, Right-sided low back pain wi thout sciatica M54.5 and Depression F32.9 [place] [address] [place] [id number] [place] [address] Apr, Hematuria R31.9 [facility] [address] [address] Mar, Other chronic pain G89.29 [facility] [address] [place] [id number] [place] [address] Mar, Other chronic pain G89.29 [facility] [address] [place] [id number] [place] [address] 28 Feb, 2015 [facility] [address] [place] [id number] [place] [address] 22 Feb, 2015 Other chronic pain 338.29 ; Dysuria 788.1 ; UTI (urinary tract infection) 599.0 ; Insomnia 780.52 ; Hot flashes 627.2 and Hypertension 401.9 [facility] [address] [place] [id number] [place] [address] 14 Feb, 2015 Dysuria 788.1 [facility] [address] [place] [id number] [place] [address] 02 Feb, 2015 [facility] [address] [place] [id number] [place] [address] Jan, [facility] [address] [id number] [address] [place] [address] Jan, [facility] [address] [id number] [address] [place] [address] Jan, Fibromyalgia 729.1 ; Hyperte nsion 401.9 ; Dysthymia 300.4 and Hot flashes 627.2 [facility] [address] [id number] [address] [place] [address] Dec, [facility] [address] [id number] [address] [place] [address] Dec, [facility] [address] [id number] [address] [place] [address] Dec, [facility] [address] [id number] [address] [place] [address] Nov, Other chronic pain 338.29 [facility] [address] [id number] [address] [place] [address] October, [facility] [address] [id number] [address] [place] [address] October, [facility] [address] [id number] [address] [place] [address] Sep, [facility] [address] [id number] [address] [place] [address] Sep, [facility] [address] [id number] [address] [place] [address] Aug, [facility] [address] [id number] [address] [place] [address] Aug, [facility] [address] [id number] [address] [place] [address] Aug, [facility] [address] [id number] [address] [place] [address] Aug, [facility] [address] [id number] [address] [place] [address], [place] [address] Aug, [facility] [address] [id number] [address] [place] [address], [place] [address] Aug, [facility] [address] [id number] [address] [place] [address], [place] [address] Aug, [facility] [address] [id number] [address] [place] [address], [place] [address] Aug, [facility] [address] [id number] [address] [place] [address], [place] [address] Aug, [facility] [address] [id number] [address] [place] [address], [place] [address] Aug, [facility] [address] [id number] [address] [place] [address], [place] [address] Aug, [facility] [address] [id number] [address] [place] [address], [place] [address] Aug, [facility] [address] [id number] [address] [place] [address], [place] [address] Aug, [facility] [address] [id number] [address] [place] [address], [place] [address] Aug, [facility] [address] [id number] [address] [place] [address], [place] [address] Jul, [facility] [address] [id number] [address] [place] [address], [place] [address] Jul, [facility] [address] [id number] [address] [place] [address], [place] [address] Jul, [facility] [address] [id number] [address] [place] [address], [place] [address] Jul, [facility] [address] [id number] [address] [place] [address], [place] [address] Jul, 2014 [facility] [address] [id number] [address] [place] [address], [place] [address] Jul, [facility] [address] [id number] [address] [place] [address], [place] [address] Jun, [facility] [address] [id number] [address] [place] [address], [place] [address] Jun, [facility] [address] [id number] [address] [place] [address], [place] [address] Jun, [facility] [address] [id number] [address] [place] [address], [place] [address] Jun, [facility] [address] [id number] [address] [place] [address], [place] [address] May, [facility] [address] [id number] [address] [place] [address], [place] [address] May, [facility] [address] [id number] [address] [place] [address], [place] [address] May, [facility] [address] [id number] [address] [place] [address], [place] [address] May, [facility] [address] [id number] [address] [place] [address], [place] [address] May, [facility] [address] [id number] [address] [place] [address], [place] [address] May, [facility] [address] [id number] [address] [place] [address], [place] [address] May, [facility] [address] [id number] [address] [place] [address], [place] [address] May, [facility] [address] [id number] [address] [place] [address], [place] [address] May, [facility] [address] [id number] [address] [place] [address], [place] [address] May, [facility] [address] [id number] [address] [place] [address], [place] [address] Apr, [facility] [address] [id number] [address] [place] [address], [place] [address] Apr, [facility] [address] [id number] [address] [place] [address], [place] [address] Apr, [facility] [address] [id number] [address] [place] [address], [place] [address] Apr, [facility] [address] [id number] [address] [place] [address], [place] [address] Apr, [facility] [address] [id number] [address] [place] [address], [place] [address] Apr, [facility] [address] [id number] [address] [place] [address], [place] [address] Apr, [facility] [address] [id number] [address] [place] [address], [place] [address] Apr, [facility] [address] [id number] [address] [place] [address], [place] [address] Apr, [facility] [address] [id number] [address] [place] [address], [place] [address] Mar, [facility] [address] [id number] [address] [place] [address], [place] [address] Mar, [facility] [address] [id number] [address] [place] [address], [place] [address] Mar, [facility] [address] [id number] [address] [place] [address], [place] [address] Mar, [facility] [address] [id number] [address] [place] [address], [place] [address] Mar, [facility] [address] [id number] [address] [place] [address], [place] [address] Mar, [facility] [address] [id number] [address] [place] [address], [place] [address] Mar, [facility] [address] [id number] [address] [place] [address], [place] [address] Mar, [facility] [address] [id number] [address] [place] [address], [place] [address] 30 Feb, 2013 [facility] [address] [id number] [address] [place] [address], [place] [address] 30 Feb, 2013 [facility] [address] [id number] [address] [place] [address], [place] [address] 24 Feb, 2013 [facility] [address] [id number] [address] [place] [address], [place] [address] 24 Feb, 2013 [facility] [address] [id number] [address] [place] [address], [place] [address] 22 Feb, 2013 [facility] [address] [id number] [address] [place] [address], [place] [address] 22 Feb, 2013 [facility] [address] [id number] [address] [place] [address], [place] [address] 10 Feb, 2013 [facility] [address] [id number] [address] [place] [address], [place] [address] 10 Feb, 2013 [facility] [address] [id number] [address] [place] [address], [place] [address] 03 Feb, 2013 [facility] [address] [id number] [address] [place] [address], [place] [address] 03 Feb, 2013 [facility] [address] [id number] [address] [place] [address], [place] [address] 03 Feb, 2013 [facility] [address] [id number] [address] [place] [address], [place] [address] 03 Feb, 2013 [facility] [address] [id number] [address] [place] [address], [place] [address] Feb, 2013 [facility] [address] [id number] [address] [place] [address], [place] [address] 03 Feb, 2013 [facility] [address] [id number] [address] [place] [address], [place] [address] 07 Jan, 2013 [facility] [address] [id number] [address] [place] [address], [place] [address] Jan, [facility] [address] [id number] [address] [place] [address], [place] [address] Dec, [facility] [address] [id number] [address] [place] [address], [place] [address] Dec, [facility] [address] [id number] [address] [place] [address], [place] [address] Dec, [facility] [address] [id number] [address] [place] [address], [place] [address] Dec, [facility] [address] [id number] [address] [place] [address], [place] [id number] Dec, [facility] [address] [id number] [address] [place] [address], [place] [address] Dec, [facility] [address] [id number] [address] [place] [address], [place] [address] Dec, [facility] [address] [id number] [address] [place] [address], [place] [address] Dec, [facility] [address] [id number] [address] [place] [address], [place] [address] Dec, [facility] [address] [id number] [address] [place] [address], [place] [address] Dec, [facility] [address] [id number] [address] [place] [address], [place] [address] Dec, [facility] [address] [id number] [address] [place] [address], [place] [address] Dec, [facility] [address] [id number] [address] [place] [address], [place] [address] Dec, [facility] [address] [id number] [address] [place] [address], [place] [address] Dec, [facility] [address] [id number] [address] [place] [address], [place] [address] Dec, [facility] [address] [id number] [facility] [place] [address] Dec, [facility] [address] [id number] [facility] [place] [address] Dec, [facility] [address] [id number] [facility] [place] [address] Dec, [facility] [address] [id number] [address] [place] [address], [place] [address] Dec, [facility] [address] [id number] [address] [place] [address], [place] [address] Nov, [facility] [address] [id number] [address] [place] [address], [place] [address] Nov, [facility] [address] [id number] [address] [place] [address], [place] [address] Nov, [facility] [address] [id number] [address] [place] [address], [place] [address] Nov, [facility] [address] [id number] [address] [place] [address], [place] [address] Nov, [facility] [address] [id number] [address] [place] [address], [place] [address] Nov, [facility] [address] [id number] [address] [place] [address], [place] [address] Nov, [facility] [address] [id number] [address] [place] [address], [place] [address] Nov, [facility] [address] [id number] [address] [place] [address], [place] [address] Nov, [facility] [address] [id number] [address] [place] [address], [place] [address] October, [facility] [address] [id number] [address] [place] [address], [place] [address] October, [facility] [address] [id number] [address] [place] [address], [place] [address] October, [facility] [address] [id number] [address] [place] [address], [place] [address] October, [facility] [address] [id number] [address] [place] [address], [place] [address] October, [facility] [address] [id number] [address] [place] [address], [place] [address] October, [facility] [address] [id number] [address] [place] [address], [place] [address] October, [facility] [address] [id number] [address] [place] [address], [place] [address] October, [facility] [address] [id number] [address] [place] [address], [place] [address] Sep, [facility] [address] [id number] [address] [place] [address], [place] [address] Sep, [facility] [address] [id number] [address] [place] [address], [place] [address] Sep, [facility] [address] [id number] [address] [place] [address], [place] [address] Sep, [facility] [address] [id number] [address] [place] [address], [place] [address] Sep, [facility] [address] [id number] [address] [place] [address], [place] [address] Sep, [facility] [address] [id number] [address] [place] [address], [place] [address] Sep, [facility] [address] [id number] [address] [place] [address], [place] [address] Aug, [facility] [address] [id number] [address] [place] [address], [place] [address] Aug, [facility] [address] [id number] [address] [place] [address], [place] [address] Aug, [facility] [address] [id number] [address] [place] [address], [place] [address] Aug, [facility] [address] [id number] [address] [place] [address], [place] [address] Aug, [facility] [address] [id number] [address] [place] [address], [place] [address] Aug, [facility] [address] [id number] [address] [place] [address], [place] [address] Jul, [facility] [address] [id number] [address] [place] [address], [place] [address] Jul, [facility] [address] [id number] [address] [place] [address], [place] [address] Jul, [facility] [address] [id number] [address] [place] [address], [place] [address] Jul, [facility] [address] [id number] [address] [place] [address], [place] [address] Jul, [facility] [address] [id number] [address] [place] [address], [place] [address] Jul, [facility] [address] [id number] [address] [place] [address], [place] [address] Jun, [facility] [address] [id number] [address] [place] [address], [place] [address] Jun, [facility] [address] [id number] [address] [place] [address], [place] [address] Jun, [facility] [address] [id number] [address] [place] [address], [place] [address] Jun, [facility] [address] [id number] [address] [place] [address], [place] [address] Jun, [facility] [address] [id number] [address] [place] [address], [place] [address] Jun, [facility] [address] [id number] [address] [place] [address], [place] [address] Jun, [facility] [address] [id number] [address] [place] [address], [place] [address] Jun, [facility] [address] [id number] [address] [place] [address], [place] [address] Jun, [facility] [address] [id number] [address] [place] [address], [place] [address] Jun, [facility] [address] [id number] [address] [place] [address], [place] [address] Jun, [facility] [address] [id number] [address] [place] [address], [place] [address] Jun, [facility] [address] [id number] [address] [place] [address], [place] [address] Jun, [facility] [address] [id number] [address] [place] [address], [place] [address] 30 May, 2013 [facility] [address] [id number] [address] [place] [address], [place] [address] 30 May, 2013 [facility] [address] [id number] [address] [place] [address], [place] [address] 30 May, 2013 [facility] [address] [id number] [address] [place] [address], [place] [address] 30 May, 2013 [facility] [address] [id number] [address] [place] [address], [place] [address] May, [facility] [address] [id number] [address] [place] [address], [place] [address] 14 May, 2013 [facility] [address] [id number] [address] [place] [address], [place] [address] May, [facility] [address] [id number] [address] [place] [address], [place] [address] May, [facility] [address] [id number] [address] [place] [address], [place] [address] May, [facility] [address] [id number] [address] [place] [address] May, [facility] [address] [id number] [address] [place] [address], [place] [address] 11 May, 2013 [facility] [address] [id number] [address] [place] [address], [place] [address] May, [facility] [address] [id number] [address] [place] [address], [place] [address] May, [facility] [address] [id number] [address] [place] [address], [place] [address] May, [facility] [address] [id number] [address] [place] [address], [place] [address] May, [facility] [address] [id number] [address] [place] [address], [place] [address] May, [facility] [address] [id number] [address] [place] [address], [place] [address] May, [facility] [address] [id number] [address] [place] [address], [place] [address] May, [facility] [address] [id number] [address] [place] [address], [place] [address] May, [facility] [address] [id number] [address] [place] [address], [place] [address] May, [facility] [address] [id number] [address] [place] [address], [place] [address] May, [facility] [address] [id number] [address] [place] [address] Apr, [facility] [address] [id number] [address] [place] [address], [place] [address] Apr, [facility] [address] [id number] [address] [place] [address], [place] [address] Apr, [facility] [address] [id number] [address] [place] [address], [place] [address] Apr, [facility] [address] [id number] [address] [place] [address], [place] [address] 08 Mar, 2013 [facility] [address] [id number] [address] [place] [address], [place] [address] 23 Feb, 2012 [facility] [address] [id number] [address] [place] [address], [place] [address] 16 Feb, 2012 [facility] [address] [id number] [address] [place] [address], [place] [address] 13 Feb, 2012 [facility] [address] [id number] [address] [place] [address], [place] [address] 10 Feb, 2012 [facility] [address] [id number] [address] [place] [address], [place] [address] 09 Feb, 2012 [facility] [address] [id number] [address] [place] [address], [place] [address] 09 Feb, 2013 [facility] [address] [id number] [address] [place] [address], [place] [address] Jan, [facility] [address] [id number] [address] [place] [address], [place] [address] Jan, [facility] [address] [id number] [address] [place] [address], [place] [address] Jan, [facility] [address] [id number] [address] [place] [address], [place] [address] Dec, [facility] [address] [id number] [address] [place] [address], [place] [address] Dec, [facility] [address] [id number] [address] [place] [address], [place] [address] Dec, [facility] [address] [id number] [address] [place] [address], [place] [address] 15 Dec, 2012 [facility] [address] [id number] [address] [place] [address], [place] [address] Dec, [facility] [address] [id number] [address] [place] [address], [place] [address] Nov, [facility] [address] [id number] [address] [place] [address], [place] [address] Nov, [facility] [address] [id number] [address] [place] [address], [place] [address] 20 Nov, 2012 [facility] [address] [id number] [address] [place] [address], [place] [address] Nov, [facility] [address] [id number] [address] [place] [address], [place] [address] 12 Nov, 2012 [facility] [address] [id number] [address] [place] [address], [place] [address] 08 Nov, 2012 [facility] [address] [id number] [address] [place] [address], [place] [address] 07 Nov, 2012 [facility] [address] [id number] [address] [place] [address], [place] [address] 06 Nov, 2012 [facility] [address] [id number] [address] [place] [address], [place] [address] 05 Nov, 2012 [facility] [address] [id number] [address] [place] [address], [place] [address] Nov, [facility] [address] [id number] [address] [place] [address], [place] [address] October, [facility] [address] [id number] [address] [place] [address], [place] [address] October, [facility] [address] [id number] [address] [place] [address], [place] [address] Sep, [facility] [address] [id number] [address] [place] [address], [place] [address] Sep, [facility] [address] [id number] [address] [place] [address], [place] [address] Sep, [facility] [address] [id number] [address] [place] [address], [place] [address] Sep, [facility] [address] [id number] [address] [place] [address], [place] [address] 05 Sep, 2012 [facility] [address] [id number] [address] [place] [address], [place] [address] 05 Aug, 2012 [facility] [address] [id number] [address] [place] [address], [place] [address] Aug, [facility] [address] [id number] [address] [place] [address], [place] [address] Jul, [facility] [address] [id number] [address] [place] [address], [place] [address] Jul, [facility] [address] [id number] [address] [place] [address], [place] [address] Jun, [facility] [address] [id number] [address] [place] [address], [place] [address] Jun, [facility] [address] [id number] [address] [place] [address], [place] [address] May, [facility] [address] [id number] [address] [place] [address], [place] [address] May, [facility] [address] [id number] [address] [place] [address], [place] [address] May, [facility] [address] [id number] [address] [place] [address], [place] [address] May, [facility] [address] [id number] [address] [place] [address], [place] [address] Apr, [facility] [address] [id number] [address] [place] [address], [place] [address] Apr, [facility] [address] [id number] [address] [place] [address], [place] [address] Apr, [facility] [address] [id number] [address] [place] [address], [place] [address] Apr, [facility] [address] [id number] [address] [place] [address], [place] [address] Apr, [facility] [address] [id number] [address] [place] [address], [place] [address] 14 Apr, 2012 [facility] [address] [id number] [address] [place] [address], [place] [address] 14 Apr, 2012 [facility] [address] [id number] [address] [place] [address], [place] [address] Apr, [facility] [address] [id number] [address] [place] [address], [place] [address] Apr, [facility] [address] [id number] [address] [place] [address], [place] [address] Mar, [facility] [address] [id number] [address] [place] [address], [place] [address] Mar, [facility] [address] [id number] [address] [place] [address], [place] [address] Feb, [facility] [address] [id number] [address] [place] [address], [place] [address] Jan, [facility] [address] [id number] [address] [place] [address], [place] [address] Jan, [facility] [address] [id number] [address] [place] [address], [place] [address] Dec, [facility] [address] [id number] [address] [place] [address], [place] [address] Nov, [facility] [address] [id number] [address] [place] [address] Nov, [facility] [address] [id number] [address] [place] [address], [place] [address] October, [facility] [address] [id number] [address] [place] [address], [place] [address] October, [facility] [address] [id number] [address] [place] [address], [place] [address] Sep, [facility] [address] [id number] [address] [place] [address] Sep, [facility] [address] [id number] [address] [place] [address] May, [facility] [address] [id number] [address] [place] [address] Apr, [facility] [address] [id number] [address] [place] [address] Apr, [facility] [address] [id number] [address] [place] [address] Apr, [facility] [address] [id number] [address] [place] [address] Apr, [facility] [address] [id number] [address] [place] [address] Apr, [facility] [address] [id number] [address] [place] [address] Apr, [facility] [address] [id number] [address] [place] [id number] Apr, [facility] [address] [id number] [address] [place] [address] Apr, [facility] [address] [id number] [address] [place] [id number] Mar, [facility] [address] [id number] [address] [place] [id number] Mar, [facility] [address] [id number] [address] [place] [address] Mar, [facility] [address] [id number] [address] [place] [id number] Mar, [facility] [address] [id number] [address] [place] [id number] Mar, [facility] [address] [id number] [address] [place] [address] Mar, IMMUNIZATIONS No Known Immunizations SOCIAL HISTORY [...] Stomach surgeryx3 Hospitalization History Mental floor at [facility]
--- OUTSIDE RECORDS SUMMARY | 2019-12-24 19:57 | XMS REPORT ---
Author Author Trey ANDRADE Organization [facility] [place] Address [address] [place] [address] Care Team Providers Care J2Ee Application Developer Name Role Phone SURESH ANDRADE Unavailable PROBLEMS Type Condition ICD9-CM Code [id number] Code Onset Dates Condition S tatus SNOMED Code Problem Nondependent 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 Ac tive 185190807 Problem Other chronic pain G89.29 Active 1 09307781 Problem Unspecified epilepsy without mention of intractable ep ilepsy G40.909 Active 01206469 Problem Hyperlipidemia, unspecified E78.5 Ac tive 53670377 Problem Hypertension I10 Active 4716914 3 Problem Esophageal reflux K21.9 Active 23 9925111 Problem Rheumatoid arthritis M06.9 Active 57613500 Problem Cough R05 Active 87845405 Problem Acquired hypothyroidism E03.9 Active 247270355 Problem Unspecified open-angle glaucoma, stage unspecified H40.10X0 Feb, Active 05843464 Problem Presbyopia H52.4 Active 11229768 Problem Insomnia G47.00 Active 318252701 Problem Arthralgia M25.50 Active 49450016 Problem Thyroid nodule E04.1 Active 54512 5005 Problem Anxiety disorder, unspecified F41.9 Active 335780642 Problem Chronic tension-type headache, intractable G44.221 Active 430016016 Problem Neuropathy G62.9 Active 304473702 Problem Goiter E04.9 Active 4126246 Problem Multinodular goiter E04.2 Active 912363100 Problem Carpal tunnel syndrome of left wrist G56.02 Active 546962691928705 Problem Chronic obstructive pulmonary disease, unspecified COPD ty pe J44.9 Active 24342549 Problem BMI 40.0-44.9, adult Z68.41 Active 854924461 Problem Seasonal allergic rhinitis due to pollen J30.1 Active 83119237 Problem Depression F32.9 Active 52869055 Problem Essential hypertension I10 Active 23078804 Problem Depressive disorder F32.9 Active 63771898 Problem Right-sided low back pain without sciatica M54.5 Active 124348719 Problem Reactive airway disease with out complication, unspecified asthma severity, unspecified whether persistent J45.909 Active 376666310374 Problem Urge incontinence of urine N39.41 Act chen 14094280 Problem Abnormal laboratory test R89.9 Activ e 976416230 Problem COPD with exacerbation J44.1 Active 507275992 ALLERGIES No Information ENCOUNTERS Encounter Location Date Diagnosis [place] [address] [address] October, Acquired hypothyroidism E03. 9 [place] [address] [address] October, Acute gastritis without hemo rrhage, unspecified gastritis type K29.00 ; Epigastric pain R10.13 ; Essential hypertension I10 ; Screening for colon cancer Z12.11 and BMI 40.0-44.9, adult Z68.41 [place] [address] [address] October, [facility] [place] [address] [address] October, Chest pain R07.9 and Morbid obesity E66.01 [facility] [place] [address] [address] Sep, Generalized abdominal pain R 10.84 ; Morbid obesity E66.01 ; Non-intractable vomiting with nausea, unspecified vomiting type R11.2 and Seasonal allergic rhinitis due to pollen J30.1 [facility] [place] [address] [address] [place] [id number] [place] [address] Jul, COPD with exacerbation J44.1 ; Viral upper respiratory tract infection J06.9 and Morbid obesity E66.01 [facility] [address] [place] [id number] [place] [address] Jun, Viral upper respiratory trac t infection J06.9 [place] [address] [place] [address] [place] [address] Apr, Abnormal laboratory test R89 .9 [facility] [place] [address] [place] [id number] [place] [address] Apr, Abnormal laboratory test R89 .9 [facility] [place] [address] [place] [id number] [place] [address] Apr, Abnormal laboratory test R89 .9 [facility] [place] [address] [place] [id number] [place] [address] Apr, [place] [address] [address] Apr, [place] [address] [address] Apr, Nonintractable episodic head ache, unspecified headache type R51 ; Urge incontinence of urine N39.41 ; BMI 40.0-44.9, adult Z68.41 ; Myalgia M79.10 and Acute cystitis without hematuria N30.00 [facility] [place] [address] [place] [id number] [place] [address] Mar, Nasal congestion R09.81 ; Lo w back pain M54.5 ; Reactive airway disease without complication, unspecified asthma severity, unspecified whether persistent J45.909 ; Other chronic pain G89.29 ; Acute cystitis with hematuria N30.01 and BMI 40.0-44.9, adult Z68.41 [facility] [place] [address] [place] [id number] [place] [address] Mar, Acute cystitis with hematuri a N30.01 [facility] [address] [place] [id number] [place] [address] Mar, BMI 40.0-44.9, adult Z68.41 ; Acute cystitis with hematuria N30.01 ; Acute bilateral low back pain without sciatica M54.5 and Nausea R11.0 [facility] [place] [address] [address] Mar, Hypertension I10 ; Acquired hypothyroidism E03.9 ; Esophageal reflux K21.9 ; Chronic obstructive pulmonary disease, unspecified COPD type J44.9 and BMI 40.0-44.9, adult Z68.41 [place] [address] [address] Mar, Hypertension I10 [place] [address] [address] Nov, Hyperlipidemia, unspecified E78.5 [place] [address] [address] October, Chest pain, unspecified type R07.9 and Acquired hypothyroidism E03.9 [place] [address] [address] October, Chest pain, unspecified type R07.9 ; Family history of coronary artery disease Z82.49 ; Carpal tunnel syndrome of left wrist G56.02 ; Hypertension I10 ; Esophageal reflux K21.9 ; Arthralgia M25.50 ; Acquired hypothyroidism E03.9 ; Cough R05 ; Nausea R11.0 ; Weight gain R63.5 and BMI 45.0-49.9, adult Z68.42 [place] [address] [address] Jun, Acquired hypothyroidism E03. 9 and Cough R05 [place] [address] [address] May, [place] [address] [address] Feb, Tarsal tunnel syndrome of timi th lower extremities G57.53 and Neuropathy G62.9 [place] [address] [place] [id number] [place] [address] Dec, Pleuritis R09.1 [place] [address] [address] Nov, [place] [address] [id number] [address] [place] [address] October, Arthralgia, unspecified join t M25.50 and Allergy, initial encounter T78.40XA [place] [address] [address] [facility] [id number] [address] [place] [address] October, [place] [address] [facility] [id number] [address] [place] [address] October, Acute recurrent maxillary si nusitis J01.01 and Arthralgia M25.50 [place] [address] [place] [id number] [place] [address] Sep, Pharyngitis due to other org anism J02.8 [place] [address] [place] [id number] [place] [address] Aug, Acute nasopharyngitis J00 [place] [address] [place] [id number] [place] [address] Aug, Multinodular goiter E04.2 [place] [address] [place] [id number] [place] [address] Aug, Thyroid nodule E04.1 [place] [address] [place] [id number] [place] [address] 17 Jul, 2016 Tarsal tunnel syndrome of timi th lower extremities G57.53 [place] [address] [place] [id number] [place] [address] Jun, Pneumonia due to infectious organism, unspecified laterality, unspecified part of lung J18.9 [place] [address] [place] [id number] [place] [address] Jun, Bronchospasm with bronchitis , acute J20.9 [place] [address] [facility] [id number] [address] [place] [address] May, Acute non-recurrent frontal sinusitis J01.10 [place] [address] [place] [id number] [place] [address] May, Flat foot [pes planus] (acqu ired), left foot M21.42 ; Flat foot [pes planus] (acquired), right foot M21.41 and Neuropathy G62.9 [place] [address] [place] [id number] [place] [address] Apr, Chronic tension-type headach e, intractable G44.221 ; Right lower quadrant abdominal pain R10.31 ; Cervicalgia M54.2 ; Acute gastritis without hemorrhage, unspecified gastritis type K29.00 and Hypertension I10 [place] [address] [address] Mar, Depression F32.9 and Anxiety disorder, unspecified F41.9 [place] [address] [address] Feb, Depressive disorder F32.9 an d Anxiety disorder, unspecified F41.9 [place] [address] [address] Jan, Dysuria R30.0 ; Lower abdomi nal pain R10.30 ; Acute bilateral low back pain without sciatica M54.5 ; Nausea and vomiting, unspecified intactability, vomiting of unspecified type R11.2 ; Pain in right foot M79.671 and Pain of left foot M79.672 [place] [address] [address] Dec, Urinary tract infection, sit e not specified N39.0 [place] [address] [address] Dec, [place] [address] [address] Nov, [place] [address] [address] Nov, Dysuria R30.0 [place] [address] [address] Nov, Dysuria R30.0 and Acute cyst itis with hematuria N30.01 [place] [address] [address] October, Nausea R11.0 [facility] [place] [address] [place] [id number] [place] [address] October, Thyroid nodule E04.1 ; Carpa l tunnel syndrome, left upper limb G56.02 ; Carpal tunnel syndrome, right upper limb G56.01 and Constipation, unspecified constipation type K59.00 [place] [address] [address] October, [place] [address] [address] October, Thyroid nodule E04.1 [place] [address] [address] October, Cold thyroid nodule E04.1 [place] [address] [address] October, [place] [address] [address] Sep, Thyroid nodule E04.1 [place] [address] [address] Sep, Thyroid nodule E04.1 [place] [address] [address] Sep, Thyroid nodule E04.1 ; Hyper tension I10 ; Esophageal reflux K21.9 and Hyperlipidemia, unspecified E78.5 [place] [address] [address] Aug, Other chronic pain G89.29 ; Sinusitis J32.9 and Hypertension I10 [place] [address] [address] Jul, [facility] [place] [address] [facility] [id number] [address] [place] [address] 15 Jul, 2015 [facility] [place] [address] [facility] [id number] [address] [place] [address] Jul, Insomnia G47.00 and Arthralg ia M25.50 [facility] [place] [address] [facility] [id number] [address] [place] [address] Jul, Depressive disorder F32.9 an d Anxiety disorder, unspecified F41.9 [facility] [place] [address] [facility] [id number] [address] [place] [address] May, Right-sided low back pain wi thout sciatica M54.5 and Depression F32.9 [place] [address] [place] [id number] [place] [address] Apr, Hematuria R31.9 [place] [address] [place] [id number] [place] [address] Mar, Other chronic pain G89.29 [facility] [place] [address] [place] [id number] [place] [address] Mar, Other chronic pain G89.29 [facility] [place] [address] [place] [id number] [place] [address] Feb, [facility] [place] [address] [facility] [id number] [address] [place] [address] Feb, Other chronic pain 338.29 ; Dysuria 788.1 ; UTI (urinary tract infection) 599.0 ; Insomnia 780.52 ; Hot flashes 627.2 and Hypertension 401.9 [facility] [place] [address] [facility] [id number] [address] [place] [address] 14 Feb, 2015 Dysuria 788.1 [facility] [place] [address] [place] [id number] [place] [address] 02 Feb, 2015 [facility] [place] [address] [place] [id number] [place] [address] Jan, [facility] [address] [id number] [address] [place] [address] Jan, [facility] [address] [id number] [address] [place] [address] Jan, Fibromyalgia 729.1 ; Hyperte nsion 401.9 ; Dysthymia 300.4 and Hot flashes 627.2 [facility] [address] [id number] [address] [place] [address] Dec, [facility] [address] [id number] [address] [place] [address] Dec, [facility] [address] [id number] [address] [place] [address] Dec, [facility] [address] [id number] [address] [place] [address] Nov, Other chronic pain 338.29 [facility] [address] [id number] [address] [place] [address] October, [facility] [address] [id number] [address] [place] [address] October, [facility] [address] [id number] [address] [place] [address] Sep, [facility] [address] [id number] [address] [place] [address] Sep, [facility] [address] [id number] [address] [place] [address] Aug, [facility] [address] [id number] [address] [place] [address] Aug, [facility] [address] [id number] [address] [place] [address] Aug, [facility] [address] [id number] [address] [place] [address] Aug, [facility] [address] [id number] [address] [place] [address], [place] [address] Aug, [facility] [address] [id number] [address] [place] [address], [place] [address] Aug, [facility] [place] [facility] [address] [id number] [address] [place] [address], [place] [address] Aug, [facility] [address] [id number] [address] [place] [address], [place] [address] Aug, 2014 [facility] [address] [id number] [address] [place] [address], [place] [address] Aug, [facility] [address] [id number] [address] [place] [address], [place] [address] Aug, [facility] [address] [id number] [address] [place] [address], [place] [address] Aug, [facility] [address] [id number] [address] [place] [address], [place] [address] Aug, [facility] [address] [id number] [address] [place] [address], [place] [address] Aug, [facility] [address] [id number] [address] [place] [address], [place] [address] Aug, [facility] [address] [id number] [address] [place] [address], [place] [address] Jul, 2014 [facility] [place] [facility] [address] [id number] [address] [place] [address], [place] [address] Jul, 2014 [facility] [address] [id number] [address] [place] [address], [place] [address] Jul, 2014 [facility] [place] [facility] [address] [id number] [address] [place] [address], [place] [address] Jul, 2014 [facility] [place] [facility] [address] [id number] [address] [place] [address], [place] [address] Jul, 2014 [facility] [place] [facility] [address] [id number] [address] [place] [address], [place] [address] Jul, [facility] [address] [id number] [address] [place] [address], [place] [address] Jun, [facility] [address] [id number] [address] [place] [address], [place] [address] Jun, [facility] [address] [id number] [address] [place] [address], [place] [address] 15 Jun, 2014 [facility] [address] [id number] [address] [place] [address], [place] [address] Jun, [facility] [address] [id number] [address] [place] [address], [place] [address] May, [facility] [address] [id number] [address] [place] [address], [place] [address] May, [facility] [address] [id number] [address] [place] [address], [place] [address] May, [facility] [address] [id number] [address] [place] [address], [place] [address] May, [facility] [address] [id number] [address] [place] [address], [place] [address] May, [facility] [address] [id number] [address] [place] [address], [place] [address] May, [facility] [address] [id number] [address] [place] [address], [place] [address] May, [facility] [place] [facility] [address] [id number] [address] [place] [address], [place] [address] May, [facility] [place] [facility] [address] [id number] [address] [place] [address], [place] [address] May, [facility] [place] [facility] [address] [id number] [address] [place] [address], [place] [address] May, [facility] [place] [facility] [address] [id number] [address] [place] [address], [place] [address] Apr, [facility] [place] [facility] [address] [id number] [address] [place] [address], [place] [address] Apr, [facility] [place] [facility] [address] [id number] [address] [place] [address], [place] [address] Apr, [facility] [place] [facility] [address] [id number] [address] [place] [address], [place] [address] Apr, [facility] [place] [facility] [address] [id number] [address] [place] [address], [place] [address] Apr, [facility] [place] [facility] [address] [id number] [address] [place] [address], [place] [address] Apr, [facility] [place] [facility] [address] [id number] [address] [place] [address], [place] [address] Apr, [facility] [place] [facility] [address] [id number] [address] [place] [address], [place] [address] Apr, [facility] [place] [facility] [address] [id number] [address] [place] [address], [place] [address] Apr, [facility] [place] [facility] [address] [id number] [address] [place] [address], [place] [address] Mar, [facility] [place] [facility] [address] [id number] [address] [place] [address], [place] [address] Mar, [facility] [place] [facility] [address] [id number] [address] [place] [address], [place] [address] Mar, [facility] [place] [facility] [address] [id number] [address] [place] [address], [place] [address] Mar, [facility] [place] [facility] [address] [id number] [address] [place] [address], [place] [address] Mar, [facility] [place] [facility] [address] [id number] [address] [place] [address], [place] [address] Mar, [facility] [place] [facility] [address] [id number] [address] [place] [address], [place] [address] Mar, [facility] [place] [facility] [address] [id number] [address] [place] [address], [place] [address] Mar, [facility] [place] [facility] [address] [id number] [facility] [place] [address] 30 Sep, 2013 [facility] [address] [id number] [facility] [place] [address] 30 Sep, 2013 [facility] [place] [facility] [address] [id number] [address] [place] [address], [place] [address] 24 Feb, 2013 [facility] [place] [facility] [address] [id number] [address] [place] [address], [place] [address] 24 Feb, 2013 [facility] [address] [id number] [address] [place] [address], [place] [address] 22 Feb, 2013 [facility] [address] [id number] [address] [place] [address], [place] [address] 22 Feb, 2013 [facility] [address] [id number] [address] [place] [address], [place] [address] 10 Feb, 2013 [facility] [address] [id number] [address] [place] [address], [place] [address] 10 Feb, 2013 [facility] [address] [id number] [address] [place] [address], [place] [address] 03 Feb, 2013 [facility] [address] [id number] [address] [place] [address], [place] [address] 03 Sep, 2013 [facility] [address] [id number] [address] [place] [address], [place] [address] 03 Feb, 2013 [facility] [address] [id number] [address] [place] [address], [place] [address] 03 Sep, 2013 [facility] [address] [id number] [address] [place] [address], [place] [address] 03 Sep, 2013 [facility] [address] [id number] [address] [place] [address], [place] [address] Feb, 2013 [facility] [address] [id number] [address] [place] [address], [place] [address] Jan, [facility] [address] [id number] [address] [place] [address], [place] [address] Jan, [facility] [address] [id number] [address] [place] [address], [place] [address] Dec, [facility] [address] [id number] [address] [place] [address], [place] [address] Dec, [facility] [address] [id number] [address] [place] [address], [place] [address] Dec, [facility] [address] [id number] [address] [place] [address], [place] [address] Dec, [facility] [address] [id number] [address] [place] [address], [place] [id number] Dec, [facility] [address] [id number] [address] [place] [address], [place] [address] Dec, [facility] [address] [id number] [address] [place] [address], [place] [address] Dec, [facility] [address] [id number] [address] [place] [address], [place] [address] Dec, [facility] [address] [id number] [address] [place] [address], [place] [address] Dec, [facility] [address] [id number] [address] [place] [address], [place] [address] Dec, [facility] [address] [id number] [address] [place] [address], [place] [address] Dec, [facility] [address] [id number] [address] [place] [address], [place] [address] Dec, [facility] [address] [id number] [address] [place] [address], [place] [address] Dec, [facility] [address] [id number] [address] [place] [address], [place] [address] Dec, [facility] [address] [id number] [address] [place] [address], [place] [address] Dec, [facility] [address] [id number] [address] [place] [address], [place] [address] Dec, [facility] [address] [id number] [address] [place] [address], [place] [address] Dec, [facility] [address] [id number] [address] [place] [address], [place] [address] Dec, [facility] [address] [id number] [address] [place] [address], [place] [address] Dec, [facility] [address] [id number] [address] [place] [address], [place] [address] Nov[facility] [facility] [address] [id number] [address] [place] [address], [place] [address] Nov, [facility] [address] [id number] [address] [place] [address], [place] [address] Nov, [facility] [address] [id number] [address] [place] [address], [place] [address] Nov, [facility] [address] [id number] [address] [place] [address], [place] [address] Nov, [facility] [address] [id number] [address] [place] [address], [place] [address] Nov, [facility] [address] [id number] [address] [place] [address], [place] [address] Nov, [facility] [address] [id number] [address] [place] [address], [place] [address] Nov, [facility] [address] [id number] [address] [place] [address], [place] [address] Nov, [facility] [address] [id number] [address] [place] [address], [place] [address] October, [facility] [address] [id number] [address] [place] [address], [place] [address] October, [facility] [address] [id number] [address] [place] [address], [place] [address] October, [facility] [address] [id number] [address] [place] [address], [place] [address] October, [facility] [address] [id number] [address] [place] [address], [place] [address] October, [facility] [address] [id number] [address] [place] [address], [place] [address] October, [facility] [address] [id number] [address] [place] [address], [place] [address] October, [facility] [address] [id number] [address] [place] [address], [place] [address] October, [facility] [address] [id number] [address] [place] [address], [place] [address] Sep, [facility] [address] [id number] [address] [place] [address], [place] [address] Sep, [facility] [address] [id number] [address] [place] [address], [place] [address] Sep, [facility] [address] [id number] [address] [place] [address], [place] [address] Sep, [facility] [address] [id number] [address] [place] [address], [place] [address] Sep, [facility] [address] [id number] [address] [place] [address], [place] [address] Sep, [facility] [address] [id number] [address] [place] [address], [place] [address] Sep, [facility] [address] [id number] [address] [place] [address], [place] [address] Aug, [facility] [address] [id number] [address] [place] [address], [place] [address] Aug, [facility] [address] [id number] [address] [place] [address], [place] [address] Aug, [facility] [address] [id number] [address] [place] [address], [place] [address] Aug, [facility] [address] [id number] [address] [place] [address], [place] [address] Aug, [facility] [address] [id number] [address] [place] [address], [place] [address] Aug, [facility] [address] [id number] [address] [place] [address], [place] [address] Jul, [facility] [address] [id number] [address] [place] [address], [place] [address] Jul, [facility] [address] [id number] [address] [place] [address], [place] [address] Jul, [facility] [address] [id number] [address] [place] [address], [place] [address] Jul, [facility] [address] [id number] [address] [place] [address], [place] [address] Jul, [facility] [address] [id number] [address] [place] [address], [place] [address] Jul, [facility] [address] [id number] [address] [place] [address], [place] [address] Jun, [facility] [address] [id number] [address] [place] [address], [place] [address] Jun, [facility] [address] [id number] [address] [place] [address], [place] [address] Jun, [facility] [address] [id number] [address] [place] [address], [place] [address] Jun, [facility] [address] [id number] [address] [place] [address], [place] [address] Jun, [facility] [address] [id number] [address] [place] [address], [place] [address] Jun, [facility] [address] [id number] [address] [place] [address], [place] [address] Jun, [facility] [address] [id number] [address] [place] [address], [place] [address] Jun, [facility] [address] [id number] [address] [place] [address], [place] [address] Jun, [facility] [address] [id number] [address] [place] [address], [place] [address] Jun, [facility] [address] [id number] [address] [place] [address], [place] [address] Jun, [facility] [address] [id number] [address] [place] [address], [place] [address] Jun, [facility] [address] [id number] [address] [place] [address], [place] [address] Jun, [facility] [address] [id number] [address] [place] [address], [place] [address] May, [facility] [address] [id number] [address] [place] [address], [place] [address] May, [facility] [address] [id number] [address] [place] [address], [place] [address] May, [facility] [address] [id number] [address] [place] [address], [place] [address] May, [facility] [address] [id number] [address] [place] [address], [place] [address] May, [facility] [address] [id number] [address] [place] [address], [place] [address] May, [facility] [address] [id number] [address] [place] [address], [place] [address] May, [facility] [address] [id number] [address] [place] [address], [place] [address] May, [facility] [address] [id number] [address] [place] [address], [place] [address] May, [facility] [address] [id number] [address] [place] [address], [place] [address] May, [facility] [address] [id number] [address] [place] [address], [place] [address] May, [facility] [address] [id number] [address] [place] [address], [place] [address] May, [facility] [address] [id number] [address] [place] [address], [place] [address] May, [facility] [address] [id number] [address] [place] [address], [place] [address] May, [facility] [address] [id number] [address] [place] [address], [place] [address] May, [facility] [address] [id number] [address] [place] [address], [place] [address] May, [facility] [address] [id number] [address] [place] [address], [place] [address] May, [facility] [address] [id number] [address] [place] [address], [place] [address] May, [facility] [address] [id number] [address] [place] [address], [place] [address] May, [facility] [address] [id number] [address] [place] [address], [place] [address] May, [facility] [address] [id number] [address] [place] [address], [place] [address] May, [facility] [address] [id number] [address] [place] [address], [place] [address] Apr, [facility] [address] [id number] [address] [place] [address], [place] [address] Apr, [facility] [address] [id number] [address] [place] [address], [place] [address] Apr, [facility] [address] [id number] [address] [place] [address], [place] [address] Apr, [facility] [address] [id number] [address] [place] [address], [place] [address] 08 Mar, 2013 [facility] [address] [id number] [address] [place] [address], [place] [address] 23 Feb, 2012 [facility] [address] [id number] [address] [place] [address], [place] [address] 16 Feb, 2012 [facility] [address] [id number] [address] [place] [address], [place] [address] 13 Feb, 2012 [facility] [address] [id number] [address] [place] [address], [place] [address] 10 Feb, 2012 [facility] [address] [id number] [address] [place] [address], [place] [address] 09 Feb, 2013 [facility] [address] [id number] [address] [place] [address], [place] [address] 09 Feb, 2013 [facility] [address] [id number] [address] [place] [address], [place] [address] Jan, [facility] [address] [id number] [address] [place] [address], [place] [address] Jan, [facility] [address] [id number] [address] [place] [address], [place] [address] Jan, [facility] [address] [id number] [address] [place] [address], [place] [address] Dec, [facility] [address] [id number] [address] [place] [address], [place] [address] Dec, [facility] [address] [id number] [address] [place] [address], [place] [address] Dec, [facility] [address] [id number] [address] [place] [address], [place] [address] 15 Dec, 2012 [facility] [address] [id number] [address] [place] [address], [place] [address] Dec, [facility] [address] [id number] [address] [place] [address], [place] [address] Nov, [facility] [address] [id number] [address] [place] [address], [place] [address] Nov, [facility] [address] [id number] [address] [place] [address], [place] [address] Nov, [facility] [address] [id number] [address] [place] [address], [place] [address] 13 Nov, 2012 [facility] [address] [id number] [address] [place] [address], [place] [address] Nov, [facility] [address] [id number] [address] [place] [address], [place] [address] 08 Nov, 2012 [facility] [address] [id number] [address] [place] [address], [place] [address] 07 Nov, 2012 [facility] [address] [id number] [address] [place] [address], [place] [address] 06 Nov, 2012 [facility] [address] [id number] [address] [place] [address], [place] [address] 05 Nov, 2012 [facility] [address] [id number] [address] [place] [address], [place] [address] Nov, [facility] [address] [id number] [address] [place] [address], [place] [address] October, [facility] [address] [id number] [address] [place] [address], [place] [address] October, [facility] [address] [id number] [address] [place] [address], [place] [address] Sep, [facility] [address] [id number] [address] [place] [address], [place] [address] Sep, [facility] [address] [id number] [address] [place] [address], [place] [address] Sep, [facility] [address] [id number] [address] [place] [address], [place] [address] 06 Sep, 2012 [facility] [address] [id number] [address] [place] [address] 05 Sep, 2012 [facility] [address] [id number] [address] [place] [address], [place] [address] 05 Aug, 2012 [facility] [address] [id number] [address] [place] [address], [place] [address] Aug, [facility] [address] [id number] [address] [place] [address], [place] [address] Jul, [facility] [address] [id number] [address] [place] [address], [place] [address] Jul, [facility] [address] [id number] [address] [place] [address], [place] [address] Jun, [facility] [address] [id number] [address] [place] [address], [place] [address] Jun, [facility] [address] [id number] [address] [place] [address], [place] [address] May, [facility] [address] [id number] [address] [place] [address], [place] [address] May, [facility] [address] [id number] [address] [place] [address], [place] [address] May, [facility] [address] [id number] [address] [place] [address], [place] [address] May, [facility] [address] [id number] [address] [place] [address], [place] [address] Apr, [facility] [address] [id number] [address] [place] [address], [place] [address] Apr, [facility] [address] [id number] [address] [place] [address], [place] [address] Apr, [facility] [address] [id number] [address] [place] [address], [place] [address] Apr, [facility] [address] [id number] [address] [place] [address], [place] [address] Apr, [facility] [address] [id number] [address] [place] [address], [place] [address] 14 Apr, 2012 [facility] [address] [id number] [address] [place] [address], [place] [address] 14 Apr, 2012 [facility] [address] [id number] [address] [place] [address], [place] [address] Apr, [facility] [address] [id number] [address] [place] [address], [place] [address] Apr, [facility] [address] [id number] [address] [place] [address], [place] [address] Mar, [facility] [address] [id number] [address] [place] [address], [place] [address] Mar, [facility] [address] [id number] [address] [place] [address], [place] [address] Feb, [facility] [address] [id number] [address] [place] [address], [place] [address] Jan, [facility] [address] [id number] [address] [place] [address], [place] [address] Jan, [facility] [address] [id number] [address] [place] [address], [place] [address] Dec, [facility] [address] [id number] [address] [place] [address], [place] [address] Nov, [facility] [address] [id number] [address] [place] [address], [place] [address] Nov, [facility] [address] [id number] [address] [place] [address], [place] [address] October, [facility] [address] [id number] [address] [place] [address], [place] [address] October, [facility] [address] [id number] [address] [place] [address], [place] [address] Sep, [facility] [address] [id number] [address] [place] [address], [place] [address] Sep, [facility] [address] [id number] [address] [place] [address] May, [facility] [address] [id number] [address] [place] [address] Apr, [facility] [address] [id number] [address] [place] [address] Apr, [facility] [address] [id number] [address] [place] [address] Apr, [facility] [address] [id number] [address] [place] [address] Apr, [facility] [address] [id number] [address] [place] [address] Apr, [facility] [address] [id number] [address] [place] [address] Apr, [facility] [address] [id number] [address] [place] [address] Apr, [facility] [address] [id number] [address] [place] [address] Apr, [facility] [address] [id number] [address] [place] [address] Mar, [facility] [address] [id number] [address] [place] [address] Mar, [facility] [address] [id number] [address] [place] [id number] Mar, [facility] [address] [id number] [address] [place] [id number] Mar, [facility] [address] [id number] [address] [place] [id number] Mar, [facility] [address] [id number] [address] [place] [phone] Mar, IMMUNIZATIONS No Known Immunizations SOCIAL HISTORY Never Assessed REASON FOR VISIT PLAN OF CARE VITAL SIGNS Height 62 in 2012-01-27 Weight 210 lbs 2012-01-27 Temperature 98.3 degrees Fahrenheit 2012-01-27 Heart Rate 76 bpm 2012-01-27 Respiratory Rate 18 2012-01-27 Blood pressure systolic 136 mmHg 2012-01-27 Blood pressure diastolic 90 mmHg 2012-01-27 MEDICATIONS Unknown Medications RESULTS No Results PROCEDURES No Known procedures INSTRUCTIONS MEDICATIONS ADMINISTERED No Known Medications MEDICAL (GENERAL) HISTORY Type Description Date Medical History HTN Medical History Depression Medical History Arthritis Medical History COPD Surgical History Breast lump removed Surgical History Removal of cyst from ovary Surgical History cholecystectomy Surgical History Stomach surgeryx3 Hospitalization History Mental floor at [facility]
--- OUTSIDE RECORDS SUMMARY | 2019-12-24 19:58 | XMS REPORT ---
Author Author Trey ANDRADE Organization [facility] Address [address] [place] [address] Care Team Providers Care Tab Card Press Operator Name Role Phone SURESH ANDRADE Unavailable PROBLEMS Type Condition ICD9-CM Code IIA31-HU Code Onset Dates Condition S tatus SNOMED Code Problem Nondependent 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 Ac tive 415145793 Problem Other chronic pain G89.29 Active 1 23028140 Problem Unspecified epilepsy without mention of intractable ep ilepsy G40.909 Active 95376689 Problem Hyperlipidemia, unspecified E78.5 Ac tive 02555949 Problem Hypertension I10 Active 6125707 3 Problem Esophageal reflux K21.9 Active 23 3650449 Problem Rheumatoid arthritis M06.9 Active 15148912 Problem Cough R05 Active 08699333 Problem Acquired hypothyroidism E03.9 Active 746258848 Problem Unspecified open-angle glaucoma, stage unspecified H40.10X0 Feb, Active 77458002 Problem Presbyopia H52.4 Active 33210922 Problem Insomnia G47.00 Active 398507923 Problem Arthralgia M25.50 Active 49626288 Problem Thyroid nodule E04.1 Active 11604 5005 Problem Anxiety disorder, unspecified F41.9 Active 020641337 Problem Chronic tension-type headache, intractable G44.221 Active 058729250 Problem Neuropathy G62.9 Active 915184419 Problem Goiter E04.9 Active 2141716 Problem Multinodular goiter E04.2 Active 397743441 Problem Carpal tunnel syndrome of left wrist G56.02 Active 812845516466018 Problem Chronic obstructive pulmonary disease, unspecified COPD ty pe J44.9 Active 32433132 Problem BMI 40.0-44.9, adult Z68.41 Active 704465108 Problem Seasonal allergic rhinitis due to pollen J30.1 Active 16170739 Problem Depression F32.9 Active 34659539 Problem Essential hypertension I10 Active 98025673 Problem Depressive disorder F32.9 Active 43642360 Problem Right-sided low back pain without sciatica M54.5 Active 320993013 Problem Reactive airway disease with out complication, unspecified asthma severity, unspecified whether persistent J45.909 Active 739619971332 Problem Urge incontinence of urine N39.41 Act chen 58029893 Problem Abnormal laboratory test R89.9 Activ e 698386957 Problem COPD with exacerbation J44.1 Active 506943096 ALLERGIES No Information ENCOUNTERS Encounter Location Date Diagnosis [place] [address] [address] October, Acquired hypothyroidism E03. 9 [place] [address] [address] October, Acute gastritis without hemo rrhage, unspecified gastritis type K29.00 ; Epigastric pain R10.13 ; Essential hypertension I10 ; Screening for colon cancer Z12.11 and BMI 40.0-44.9, adult Z68.41 [place] [address] [address] October, [facility] [place] [address] [address] October, Chest pain R07.9 and Morbid obesity E66.01 [facility] [place] [address] [address] Sep, Generalized abdominal pain R 10.84 ; Morbid obesity E66.01 ; Non-intractable vomiting with nausea, unspecified vomiting type R11.2 and Seasonal allergic rhinitis due to pollen J30.1 [facility] [place] [address] [address] [place] [id number] [place] [address] Jul, COPD with exacerbation J44.1 ; Viral upper respiratory tract infection J06.9 and Morbid obesity E66.01 [facility] [address] [place] [id number] [place] [address] Jun, Viral upper respiratory trac t infection J06.9 [place] [address] [place] [address] [place] [address] Apr, Abnormal laboratory test R89 .9 [facility] [address] [place] [id number] [place] [address] Apr, Abnormal laboratory test R89 .9 [facility] [address] [place] [id number] [place] [address] Apr, Abnormal laboratory test R89 .9 [facility] [address] [place] [id number] [place] [address] Apr, [place] [address] [address] Apr, [place] [address] [address] Apr, Nonintractable episodic head ache, unspecified headache type R51 ; Urge incontinence of urine N39.41 ; BMI 40.0-44.9, adult Z68.41 ; Myalgia M79.10 and Acute cystitis without hematuria N30.00 [facility] [address] [place] [id number] [place] [address] Mar, Nasal congestion R09.81 ; Lo w back pain M54.5 ; Reactive airway disease without complication, unspecified asthma severity, unspecified whether persistent J45.909 ; Other chronic pain G89.29 ; Acute cystitis with hematuria N30.01 and BMI 40.0-44.9, adult Z68.41 [facility] [address] [place] [id number] [place] [address] Mar, Acute cystitis with hematuri a N30.01 [facility] [address] [place] [id number] [place] [address] Mar, BMI 40.0-44.9, adult Z68.41 ; Acute cystitis with hematuria N30.01 ; Acute bilateral low back pain without sciatica M54.5 and Nausea R11.0 [facility] [address] [address] Mar, Hypertension I10 ; Acquired hypothyroidism E03.9 ; Esophageal reflux K21.9 ; Chronic obstructive pulmonary disease, unspecified COPD type J44.9 and BMI 40.0-44.9, adult Z68.41 [place] [address] [address] Mar, Hypertension I10 [place] [address] [address] Nov, Hyperlipidemia, unspecified E78.5 [place] [address] [address] October, Chest pain, unspecified type R07.9 and Acquired hypothyroidism E03.9 [place] [address] [address] October, Chest pain, unspecified type R07.9 ; Family history of coronary artery disease Z82.49 ; Carpal tunnel syndrome of left wrist G56.02 ; Hypertension I10 ; Esophageal reflux K21.9 ; Arthralgia M25.50 ; Acquired hypothyroidism E03.9 ; Cough R05 ; Nausea R11.0 ; Weight gain R63.5 and BMI 45.0-49.9, adult Z68.42 [place] [address] [address] Jun, Acquired hypothyroidism E03. 9 and Cough R05 [place] [address] [address] May, [place] [address] [address] Feb, Tarsal tunnel syndrome of timi th lower extremities G57.53 and Neuropathy G62.9 [place] [address] [place] [id number] [place] [address] Dec, Pleuritis R09.1 [place] [address] [address] Nov, [place] [address] [id number] [address] [place] [address] October, Arthralgia, unspecified join t M25.50 and Allergy, initial encounter T78.40XA [place] [address] [address] [facility] [id number] [address] [place] [address] October, [place] [address] [address] [facility] [id number] [address] [place] [address] October, Acute recurrent maxillary si nusitis J01.01 and Arthralgia M25.50 [place] [address] [address] [place] [id number] [place] [address] Sep, Pharyngitis due to other org anism J02.8 [place] [address] [address] [place] [id number] [place] [address] Aug, Acute nasopharyngitis J00 [place] [address] [place] [id number] [place] [address] Aug, Multinodular goiter E04.2 [place] [address] [place] [id number] [place] [address] Aug, Thyroid nodule E04.1 [place] [address] [place] [id number] [place] [address] 17 Jul, 2016 Tarsal tunnel syndrome of timi th lower extremities G57.53 [place] [address] [address] [place] [id number] [place] [address] Jun, Pneumonia due to infectious organism, unspecified laterality, unspecified part of lung J18.9 [place] [address] [address] [place] [id number] [place] [address] Jun, Bronchospasm with bronchitis , acute J20.9 [place] [address] [address] [facility] [id number] [address] [place] [address] May, Acute non-recurrent frontal sinusitis J01.10 [place] [address] [address] [place] [id number] [place] [address] May, Flat foot [pes planus] (acqu ired), left foot M21.42 ; Flat foot [pes planus] (acquired), right foot M21.41 and Neuropathy G62.9 [place] [address] [address] [place] [id number] [place] [address] Apr, Chronic tension-type headach e, intractable G44.221 ; Right lower quadrant abdominal pain R10.31 ; Cervicalgia M54.2 ; Acute gastritis without hemorrhage, unspecified gastritis type K29.00 and Hypertension I10 [place] [address] [address] Mar, Depression F32.9 and Anxiety disorder, unspecified F41.9 [place] [address] [address] Feb, Depressive disorder F32.9 an d Anxiety disorder, unspecified F41.9 [place] [address] [address] Jan, Dysuria R30.0 ; Lower abdomi nal pain R10.30 ; Acute bilateral low back pain without sciatica M54.5 ; Nausea and vomiting, unspecified intactability, vomiting of unspecified type R11.2 ; Pain in right foot M79.671 and Pain of left foot M79.672 [place] [address] [address] Dec, Urinary tract infection, sit e not specified N39.0 [place] [address] [address] Dec, [place] [address] [address] Nov, [place] [address] [address] Nov, Dysuria R30.0 [place] [address] [address] Nov, Dysuria R30.0 and Acute cyst itis with hematuria N30.01 [place] [address] [address] October, Nausea R11.0 [facility] [address] [place] [id number] [place] [address] October, Thyroid nodule E04.1 ; Carpa l tunnel syndrome, left upper limb G56.02 ; Carpal tunnel syndrome, right upper limb G56.01 and Constipation, unspecified constipation type K59.00 [place] [address] [address] October, [place] [address] [address] October, Thyroid nodule E04.1 [place] [address] [address] October, Cold thyroid nodule E04.1 [place] [address] [address] October, [place] [address] [address] Sep, Thyroid nodule E04.1 [place] [address] [address] Sep, Thyroid nodule E04.1 [place] [address] [address] Sep, Thyroid nodule E04.1 ; Hyper tension I10 ; Esophageal reflux K21.9 and Hyperlipidemia, unspecified E78.5 [place] [address] [address] Aug, Other chronic pain G89.29 ; Sinusitis J32.9 and Hypertension I10 [place] [address] [address] Jul, [facility] [address] [facility] [id number] [address] [place] [address] 15 Jul, 2015 [facility] [address] [facility] [id number] [address] [place] [address] Jul, Insomnia G47.00 and Arthralg ia M25.50 [facility] [address] [facility] [id number] [address] [place] [address] Jul, Depressive disorder F32.9 an d Anxiety disorder, unspecified F41.9 [facility] [address] [facility] [id number] [address] [place] [address] May, Right-sided low back pain wi thout sciatica M54.5 and Depression F32.9 [place] [address] [address] [place] [id number] [place] [address] Apr, Hematuria R31.9 [place] [address] [place] [id number] [place] [address] Mar, Other chronic pain G89.29 [facility] [address] [place] [id number] [place] [address] Mar, Other chronic pain G89.29 [facility] [address] [place] [id number] [place] [address] Feb, [facility] [address] [facility] [id number] [address] [place] [address] Feb, Other chronic pain 338.29 ; Dysuria 788.1 ; UTI (urinary tract infection) 599.0 ; Insomnia 780.52 ; Hot flashes 627.2 and Hypertension 401.9 [facility] [address] [facility] [id number] [address] [place] [address] 14 Feb, 2015 Dysuria 788.1 [facility] [address] [place] [id number] [place] [address] 02 Feb, 2015 [facility] [address] [place] [id number] [place] [address] Jan, [facility] [address] [id number] [address] [place] [address] Jan, [facility] [address] [id number] [address] [place] [address] Jan, Fibromyalgia 729.1 ; Hyperte nsion 401.9 ; Dysthymia 300.4 and Hot flashes 627.2 [facility] [address] [id number] [address] [place] [address] Dec, [facility] [address] [id number] [address] [place] [address] Dec, [facility] [address] [id number] [address] [place] [address] Dec, [facility] [address] [id number] [address] [place] [address] Nov, Other chronic pain 338.29 [facility] [address] [id number] [address] [place] [address] October, [facility] [address] [id number] [address] [place] [address] October, [facility] [address] [id number] [address] [place] [address] Sep, [facility] [address] [id number] [address] [place] [address] Sep, [facility] [address] [id number] [address] [place] [address] Aug, [facility] [address] [id number] [address] [place] [address] Aug, [facility] [address] [id number] [address] [place] [address] Aug, [facility] [address] [id number] [address] [place] [address] Aug, [facility] [address] [id number] [address] [place] [address], [place] [address] Aug, [facility] [address] [id number] [address] [place] [address], [place] [address] Aug, [facility] [place] [facility] [address] [id number] [address] [place] [address], [place] [address] Aug, [facility] [address] [id number] [address] [place] [address], [place] [address] Aug, 2014 [facility] [address] [id number] [address] [place] [address], [place] [address] Aug, [facility] [address] [id number] [address] [place] [address], [place] [address] Aug, [facility] [address] [id number] [address] [place] [address], [place] [address] Aug, [facility] [address] [id number] [address] [place] [address], [place] [address] Aug, [facility] [address] [id number] [address] [place] [address], [place] [address] Aug, [facility] [address] [id number] [address] [place] [address], [place] [address] Aug, [facility] [address] [id number] [address] [place] [address], [place] [address] Jul, 2014 [facility] [place] [facility] [address] [id number] [address] [place] [address], [place] [address] Jul, 2014 [facility] [address] [id number] [address] [place] [address], [place] [address] Jul, 2014 [facility] [place] [facility] [address] [id number] [address] [place] [address], [place] [address] Jul, 2014 [facility] [place] [facility] [address] [id number] [address] [place] [address], [place] [address] Jul, 2014 [facility] [place] [facility] [address] [id number] [address] [place] [address], [place] [address] Jul, [facility] [address] [id number] [address] [place] [address], [place] [address] Jun, [facility] [address] [id number] [address] [place] [address], [place] [address] Jun, [facility] [address] [id number] [address] [place] [address], [place] [address] 15 Jun, 2014 [facility] [address] [id number] [address] [place] [address], [place] [address] Jun, [facility] [address] [id number] [address] [place] [address], [place] [address] May, [facility] [address] [id number] [address] [place] [address], [place] [address] May, [facility] [address] [id number] [address] [place] [address], [place] [address] May, [facility] [address] [id number] [address] [place] [address], [place] [address] May, [facility] [address] [id number] [address] [place] [address], [place] [address] May, [facility] [address] [id number] [address] [place] [address], [place] [address] May, [facility] [address] [id number] [address] [place] [address], [place] [address] May, [facility] [place] [facility] [address] [id number] [address] [place] [address], [place] [address] May, [facility] [place] [facility] [address] [id number] [address] [place] [address], [place] [address] May, [facility] [place] [facility] [address] [id number] [address] [place] [address], [place] [address] May, [facility] [place] [facility] [address] [id number] [address] [place] [address], [place] [address] Apr, [facility] [place] [facility] [address] [id number] [address] [place] [address], [place] [address] Apr, [facility] [place] [facility] [address] [id number] [address] [place] [address], [place] [address] Apr, [facility] [place] [facility] [address] [id number] [address] [place] [address], [place] [address] Apr, [facility] [place] [facility] [address] [id number] [address] [place] [address], [place] [address] Apr, [facility] [place] [facility] [address] [id number] [address] [place] [address], [place] [address] Apr, [facility] [place] [facility] [address] [id number] [address] [place] [address], [place] [address] Apr, [facility] [place] [facility] [address] [id number] [address] [place] [address], [place] [address] Apr, [facility] [place] [facility] [address] [id number] [address] [place] [address], [place] [address] Apr, [facility] [place] [facility] [address] [id number] [address] [place] [address], [place] [address] Mar, [facility] [place] [facility] [address] [id number] [address] [place] [address], [place] [address] Mar, [facility] [place] [facility] [address] [id number] [address] [place] [address], [place] [address] Mar, [facility] [place] [facility] [address] [id number] [address] [place] [address], [place] [address] Mar, [facility] [place] [facility] [address] [id number] [address] [place] [address], [place] [address] Mar, [facility] [place] [facility] [address] [id number] [address] [place] [address], [place] [address] Mar, [facility] [place] [facility] [address] [id number] [address] [place] [address], [place] [address] Mar, [facility] [place] [facility] [address] [id number] [address] [place] [address], [place] [address] Mar, [facility] [place] [facility] [address] [id number] [address] [place] [address] 30 Sep, 2013 [facility] [address] [id number] [facility] [place] [address] 30 Sep, 2013 [facility] [place] [facility] [address] [id number] [address] [place] [address], [place] [address] 24 Feb, 2013 [facility] [place] [facility] [address] [id number] [address] [place] [address], [place] [address] 24 Feb, 2013 [facility] [address] [id number] [address] [place] [address], [place] [address] 22 Feb, 2013 [facility] [address] [id number] [address] [place] [address], [place] [address] 22 Feb, 2013 [facility] [address] [id number] [address] [place] [address], [place] [address] 10 Feb, 2013 [facility] [address] [id number] [address] [place] [address], [place] [address] 10 Feb, 2013 [facility] [address] [id number] [address] [place] [address], [place] [address] 03 Feb, 2013 [facility] [place] [facility] [address] [id number] [address] [place] [address], [place] [address] 03 Sep, 2013 [facility] [place] [facility] [address] [id number] [address] [place] [address], [place] [address] 03 Feb, 2013 [facility] [place] [facility] [address] [id number] [address] [place] [address], [place] [address] 03 Sep, 2013 [facility] [address] [id number] [address] [place] [address], [place] [address] 03 Sep, 2013 [facility] [address] [id number] [address] [place] [address], [place] [address] Feb, 2013 [facility] [address] [id number] [address] [place] [address], [place] [address] Jan, [facility] [address] [id number] [address] [place] [address], [place] [address] Jan, [facility] [address] [id number] [address] [place] [address], [place] [address] Dec, [facility] [address] [id number] [address] [place] [address], [place] [address] Dec, [facility] [address] [id number] [address] [place] [address], [place] [address] Dec, [facility] [address] [id number] [address] [place] [address], [place] [address] Dec, [facility] [address] [id number] [address] [place] [address], [place] [id number] Dec, [facility] [address] [id number] [address] [place] [address], [place] [address] Dec, [facility] [address] [id number] [address] [place] [address], [place] [address] Dec, [facility] [address] [id number] [address] [place] [address], [place] [address] Dec, [facility] [address] [id number] [address] [place] [address], [place] [address] Dec, [facility] [address] [id number] [address] [place] [address], [place] [address] Dec, [facility] [address] [id number] [address] [place] [address], [place] [address] Dec, [facility] [address] [id number] [address] [place] [address], [place] [address] Dec, [facility] [address] [id number] [address] [place] [address], [place] [address] Dec, [facility] [address] [id number] [address] [place] [address], [place] [address] Dec, [facility] [address] [id number] [address] [place] [address], [place] [address] Dec, [facility] [address] [id number] [address] [place] [address], [place] [address] Dec, [facility] [address] [id number] [address] [place] [address], [place] [address] Dec, [facility] [address] [id number] [address] [place] [address], [place] [address] Dec, [facility] [address] [id number] [address] [place] [address], [place] [address] Dec, [facility] [address] [id number] [address] [place] [address], [place] [address] Nov, [facility] [address] [id number] [address] [place] [address], [place] [address] Nov, [facility] [address] [address] [id number] [address] [place] [address], [place] [address] Nov, [facility] [address] [id number] [address] [place] [address], [place] [address] Nov, [facility] [address] [id number] [address] [place] [address], [place] [address] Nov, [facility] [address] [id number] [address] [place] [address], [place] [address] Nov, [facility] [address] [id number] [address] [place] [address], [place] [address] Nov, [facility] [address] [id number] [address] [place] [address], [place] [address] Nov, [facility] [address] [id number] [address] [place] [address], [place] [address] Nov, [facility] [address] [id number] [address] [place] [address], [place] [address] October, [facility] [address] [id number] [address] [place] [address], [place] [address] October, [facility] [address] [id number] [address] [place] [address], [place] [address] October, [facility] [address] [id number] [address] [place] [address], [place] [address] October, [facility] [address] [id number] [address] [place] [address], [place] [address] October, [facility] [address] [id number] [address] [place] [address], [place] [address] October, [facility] [address] [id number] [address] [place] [address], [place] [address] October, [facility] [address] [id number] [address] [place] [address], [place] [address] October, [facility] [address] [id number] [address] [place] [address], [place] [address] Sep, [facility] [address] [id number] [address] [place] [address], [place] [address] Sep, [facility] [place] [address] [id number] [address] [place] [address], [place] [address] Sep, [facility] [place] [address] [id number] [address] [place] [address], [place] [address] Sep, [facility] [address] [id number] [address] [place] [address], [place] [address] Sep, [facility] [address] [id number] [address] [place] [address], [place] [address] Sep, [facility] [address] [id number] [address] [place] [address], [place] [address] Sep, [facility] [address] [id number] [address] [place] [address], [place] [address] Aug, [facility] [address] [id number] [address] [place] [address], [place] [address] Aug, [facility] [address] [id number] [address] [place] [address], [place] [address] Aug, [facility] [address] [id number] [address] [place] [address], [place] [address] Aug, [facility] [address] [id number] [address] [place] [address], [place] [address] Aug, [facility] [address] [id number] [address] [place] [address], [place] [address] Aug, [facility] [address] [id number] [address] [place] [address], [place] [address] Jul, [facility] [address] [id number] [address] [place] [address], [place] [address] Jul, [facility] [address] [id number] [address] [place] [address], [place] [address] Jul, [facility] [address] [id number] [address] [place] [address], [place] [address] Jul, [facility] [address] [id number] [address] [place] [address], [place] [address] Jul, [facility] [address] [id number] [address] [place] [address], [place] [address] Jul, [facility] [address] [id number] [address] [place] [address], [place] [address] Jun, [facility] [address] [id number] [address] [place] [address], [place] [address] Jun, [facility] [address] [id number] [address] [place] [address], [place] [address] Jun, [facility] [address] [id number] [address] [place] [address], [place] [address] Jun, [facility] [address] [id number] [address] [place] [address], [place] [address] Jun, [facility] [address] [id number] [address] [place] [address], [place] [address] Jun, [facility] [address] [id number] [address] [place] [address], [place] [address] Jun, [facility] [address] [id number] [address] [place] [address], [place] [address] Jun, [facility] [place] [address] [id number] [address] [place] [address], [place] [address] Jun, [facility] [address] [id number] [address] [place] [address], [place] [address] Jun, [facility] [place] [address] [id number] [address] [place] [address], [place] [address] Jun, [facility] [address] [id number] [address] [place] [address], [place] [address] Jun, [facility] [place] [address] [id number] [address] [place] [address], [place] [address] Jun, [facility] [address] [id number] [address] [place] [address], [place] [address] May, [facility] [address] [id number] [address] [place] [address], [place] [address] May, [facility] [address] [id number] [address] [place] [address], [place] [address] May, [facility] [address] [id number] [address] [place] [address], [place] [address] May, [facility] [address] [id number] [address] [place] [address], [place] [address] May, [facility] [address] [id number] [address] [place] [address], [place] [address] May, [facility] [address] [id number] [address] [place] [address], [place] [address] May, [facility] [address] [id number] [address] [place] [address], [place] [address] May, [facility] [address] [id number] [address] [place] [address], [place] [address] May, [facility] [address] [id number] [address] [place] [address], [place] [address] May, [facility] [address] [id number] [address] [place] [address], [place] [address] May, [facility] [address] [id number] [address] [place] [address], [place] [address] May, [facility] [address] [id number] [address] [place] [address], [place] [address] May, [facility] [address] [id number] [address] [place] [address], [place] [address] May, [facility] [address] [id number] [address] [place] [address], [place] [address] May, [facility] [address] [id number] [address] [place] [address], [place] [address] May, [facility] [address] [id number] [address] [place] [address], [place] [address] May, [facility] [address] [id number] [address] [place] [address], [place] [address] May, [facility] [address] [id number] [address] [place] [address], [place] [address] May, [facility] [address] [id number] [address] [place] [address], [place] [address] May, [facility] [address] [id number] [address] [place] [address], [place] [address] May, [facility] [address] [id number] [address] [place] [address], [place] [address] Apr, [facility] [address] [id number] [address] [place] [address], [place] [address] Apr, [facility] [address] [id number] [address] [place] [address], [place] [address] Apr, [facility] [address] [id number] [address] [place] [address], [place] [address] Apr, [facility] [address] [id number] [address] [place] [address], [place] [address] 08 Mar, 2013 [facility] [address] [id number] [address] [place] [address], [place] [address] 23 Feb, 2012 [facility] [address] [id number] [address] [place] [address], [place] [address] 16 Feb, 2012 [facility] [address] [id number] [address] [place] [address], [place] [address] 13 Feb, 2012 [facility] [address] [id number] [address] [place] [address], [place] [address] 10 Feb, 2012 [facility] [address] [id number] [address] [place] [address], [place] [address] 09 Feb, 2013 [facility] [address] [id number] [address] [place] [address], [place] [address] 09 Feb, 2013 [facility] [place] [address] [id number] [address] [place] [address], [place] [address] Jan, [facility] [address] [id number] [address] [place] [address], [place] [address] Jan, [facility] [place] [address] [id number] [address] [place] [address], [place] [address] Jan, [facility] [address] [id number] [address] [place] [address], [place] [address] Dec, [facility] [place] [address] [id number] [address] [place] [address], [place] [address] Dec, [facility] [place] [address] [id number] [address] [place] [address], [place] [address] Dec, [facility] [address] [id number] [address] [place] [address], [place] [address] 15 Dec, 2012 [facility] [address] [id number] [address] [place] [address], [place] [address] Dec, [facility] [address] [id number] [address] [place] [address], [place] [address] Nov, [facility] [address] [id number] [address] [place] [address], [place] [address] Nov, [facility] [address] [id number] [address] [place] [address], [place] [address] Nov, [facility] [address] [id number] [address] [place] [address], [place] [address] 13 Nov, 2012 [facility] [address] [id number] [address] [place] [address], [place] [address] Nov, [facility] [address] [id number] [address] [place] [address], [place] [address] 08 Nov, 2012 [facility] [address] [id number] [address] [place] [address], [place] [address] 07 Nov, 2012 [facility] [address] [id number] [address] [place] [address], [place] [address] 06 Nov, 2012 [facility] [address] [id number] [address] [place] [address], [place] [address] 05 Nov, 2012 [facility] [address] [id number] [address] [place] [address], [place] [address] Nov, [facility] [address] [id number] [address] [place] [address], [place] [address] October, [facility] [address] [id number] [address] [place] [address], [place] [address] October, [facility] [address] [id number] [address] [place] [address], [place] [address] Sep, [facility] [address] [id number] [address] [place] [address], [place] [address] Sep, [facility] [address] [id number] [address] [place] [address], [place] [address] Sep, [facility] [address] [id number] [address] [place] [address], [place] [address] 06 Sep, 2012 [facility] [address] [id number] [address] [place] [address] 05 Sep, 2012 [facility] [place] [address] [id number] [address] [place] [address], [place] [address] 05 Aug, 2012 [facility] [address] [id number] [address] [place] [address], [place] [address] Aug, [facility] [address] [id number] [address] [place] [address], [place] [address] Jul, [facility] [address] [id number] [address] [place] [address], [place] [address] Jul, [facility] [address] [id number] [address] [place] [address], [place] [address] Jun, [facility] [address] [id number] [address] [place] [address], [place] [address] Jun, [facility] [place] [address] [id number] [address] [place] [address], [place] [address] May, [facility] [place] [address] [id number] [address] [place] [address], [place] [address] May, [facility] [place] [address] [id number] [address] [place] [address], [place] [address] May, [facility] [address] [id number] [address] [place] [address], [place] [address] May, [facility] [place] [address] [id number] [address] [place] [address], [place] [address] Apr, [facility] [address] [id number] [address] [place] [address], [place] [address] Apr, [facility] [address] [id number] [address] [place] [address], [place] [address] Apr, [facility] [address] [id number] [address] [place] [address], [place] [address] Apr, [facility] [address] [id number] [address] [place] [address], [place] [address] Apr, [facility] [address] [id number] [address] [place] [address], [place] [address] 14 Apr, 2012 [facility] [address] [id number] [address] [place] [address], [place] [address] 14 Apr, 2012 [facility] [address] [id number] [address] [place] [address], [place] [address] Apr, [facility] [address] [id number] [address] [place] [address], [place] [address] Apr, [facility] [address] [id number] [address] [place] [address], [place] [address] Mar, [facility] [address] [id number] [address] [place] [address], [place] [address] Mar, [facility] [address] [id number] [address] [place] [address], [place] [address] Feb, [facility] [address] [id number] [address] [place] [address], [place] [address] Jan, [facility] [address] [id number] [address] [place] [address], [place] [address] Jan, [facility] [address] [id number] [address] [place] [address], [place] [address] Dec, [facility] [address] [id number] [address] [place] [address], [place] [address] Nov, [facility] [address] [id number] [address] [place] [address], [place] [address] Nov, [facility] [address] [id number] [address] [place] [address], [place] [address] October, [facility] [address] [id number] [address] [place] [address], [place] [address] October, [facility] [address] [id number] [address] [place] [address], [place] [address] Sep, [facility] [address] [id number] [address] [place] [address], [place] [address] Sep, [facility] [address] [id number] [address] [place] [address] May, [facility] [address] [id number] [address] [place] [address] Apr, [facility] [address] [id number] [address] [place] [address] Apr, [facility] [address] [id number] [address] [place] [address] Apr, [facility] [address] [id number] [address] [place] [address] Apr, [facility] [address] [id number] [address] [place] [address] Apr, [facility] [address] [id number] [address] [place] [address] Apr, [facility] [address] [id number] [address] [place] [address] Apr, [facility] [address] [id number] [address] [place] [address] Apr, [facility] [address] [id number] [address] [place] [address] Mar, [facility] [address] [id number] [address] [place] [address] Mar, [facility] [address] [id number] [address] [place] [address] Mar, [facility] [address] [id number] [address] [place] [address] Mar, [facility] [address] [id number] [address] [place] [address] Mar, [facility] [address] [id number] [address] [place] [id number] Mar, IMMUNIZATIONS No Known Immunizations SOCIAL HISTORY Never Assessed REASON FOR VISIT PLAN OF CARE VITAL SIGNS Height 62 in 2014-06-27 Weight 228.6 lbs 2014-06-27 Temperature 98.4 degrees Fahrenheit 2014-06-27 Heart Rate 76 bpm 2014-06-27 Respiratory Rate 18 2014-06-27 Blood pressure systolic 140 mmHg 2014-06-27 Blood pressure diastolic 84 mmHg 2014-06-27 MEDICATIONS Unknown Medications RESULTS No Results PROCEDURES Procedure Date Ordered Result Body Site PSYTX PT&/FAMILY 30 MINUTES Jun 27, 2014 INSTRUCTIONS MEDICATIONS ADMINISTERED No Known Medications MEDICAL (GENERAL) HISTORY Type Description Date Medical History HTN Medical History Depression Medical History Arthritis Medical History COPD Surgical History Breast lump removed Surgical History Removal of cyst from ovary Surgical History cholecystectomy Surgical History Stomach surgeryx3 Hospitalization History Mental floor at [facility]
--- OUTSIDE RECORDS SUMMARY | 2019-12-24 19:58 | XMS REPORT ---
Author Author Trey POLK Organization [facility] Address [address] [place] [address] Care Team Providers Care Special Machine Stitcher Name Role Phone SYBIL POLK Unavailable PROBLEMS Type Condition ICD9-CM Code AUU43-UW Code Onset Dates Condition S tatus SNOMED Code Problem Nondependent 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 Ac tive 212448835 Problem Other chronic pain G89.29 Active 1 89346294 Problem Unspecified epilepsy without mention of intractable ep ilepsy G40.909 Active 46424420 Problem Hyperlipidemia, unspecified E78.5 Ac tive 77176053 Problem Hypertension I10 Active 1106173 3 Problem Esophageal reflux K21.9 Active 23 8030047 Problem Rheumatoid arthritis M06.9 Active 78483116 Problem Cough R05 Active 88053076 Problem Acquired hypothyroidism E03.9 Active 135557068 Problem Unspecified open-angle glaucoma, stage unspecified H40.10X0 Feb, Active 05443762 Problem Presbyopia H52.4 Active 60730139 Problem Insomnia G47.00 Active 060315724 Problem Arthralgia M25.50 Active 32286809 Problem Thyroid nodule E04.1 Active 46124 5005 Problem Anxiety disorder, unspecified F41.9 Active 347341713 Problem Chronic tension-type headache, intractable G44.221 Active 767975323 Problem Neuropathy G62.9 Active 183985130 Problem Goiter E04.9 Active 4998939 Problem Multinodular goiter E04.2 Active 566638646 Problem Carpal tunnel syndrome of left wrist G56.02 Active 475562878933289 Problem Chronic obstructive pulmonary disease, unspecified COPD ty pe J44.9 Active 53945240 Problem BMI 40.0-44.9, adult Z68.41 Active 257404572 Problem Seasonal allergic rhinitis due to pollen J30.1 Active 34195388 Problem Depression F32.9 Active 43521122 Problem Essential hypertension I10 Active 62595519 Problem Depressive disorder F32.9 Active 50159066 Problem Right-sided low back pain without sciatica M54.5 Active 201391457 Problem Reactive airway disease with out complication, unspecified asthma severity, unspecified whether persistent J45.909 Active 459541589092 Problem Urge incontinence of urine N39.41 Act chen 49329845 Problem Abnormal laboratory test R89.9 Activ e 417430045 Problem COPD with exacerbation J44.1 Active 981551176 ALLERGIES No Information ENCOUNTERS Encounter Location Date Diagnosis [place] [address] [address] October, Acquired hypothyroidism E03. [address] [address] October, Acute gastritis without hemo rrhage, unspecified gastritis type K29.00 ; Epigastric pain R10.13 ; Essential hypertension I10 ; Screening for colon cancer Z12.11 and BMI 40.0-44.9, adult Z68.41 [place] [address] [address] October, [facility] [address] [address] October, Chest pain R07.9 and Morbid obesity E66.01 [facility] [address] [address] Sep, Generalized abdominal pain R 10.84 ; Morbid obesity E66.01 ; Non-intractable vomiting with nausea, unspecified vomiting type R11.2 and Seasonal allergic rhinitis due to pollen J30.1 [facility] [place] [address] [address] Jul, COPD with exacerbation J44.1 ; Viral upper respiratory tract infection J06.9 and Morbid obesity E66.01 [facility] [place] [address] [address] Jun, Viral upper respiratory trac t infection J06.9 [place] [address] [address] Apr, Abnormal laboratory test R89 .9 [facility] [address] [facility] [id number] [address] [place] [address] Apr, Abnormal laboratory test R89 .9 [facility] [address] [place] [id number] [address] [place] [address] Apr, Abnormal laboratory test R89 .9 [facility] [address] [place] [id number] [address] [place] [address] Apr, [place] [address] [address] [place] [id number] [address] [place] [address] Apr, [place] [address] [address] Apr, Nonintractable episodic head ache, unspecified headache type R51 ; Urge incontinence of urine N39.41 ; BMI 40.0-44.9, adult Z68.41 ; Myalgia M79.10 and Acute cystitis without hematuria N30.00 [place] [address] [address] [place] [id number] [address] [place] [address] Mar, Nasal congestion R09.81 ; Lo w back pain M54.5 ; Reactive airway disease without complication, unspecified asthma severity, unspecified whether persistent J45.909 ; Other chronic pain G89.29 ; Acute cystitis with hematuria N30.01 and BMI 40.0-44.9, adult Z68.41 [facility] [address] [place] [id number] [address] [place] [address] Mar, Acute cystitis with hematuri a N30.01 [facility] [address] [place] [id number] [address] [place] [address] Mar, BMI 40.0-44.9, adult Z68.41 ; Acute cystitis with hematuria N30.01 ; Acute bilateral low back pain without sciatica M54.5 and Nausea R11.0 [facility] [address] [place] [id number] [address] [place] [address] Mar, Hypertension I10 ; Acquired hypothyroidism E03.9 ; Esophageal reflux K21.9 ; Chronic obstructive pulmonary disease, unspecified COPD type J44.9 and BMI 40.0-44.9, adult Z68.41 [place] [address] [address] Mar, Hypertension I10 [place] [address] [address] Nov, Hyperlipidemia, unspecified E78.5 [place] [address] [address] October, Chest pain, unspecified type R07.9 and Acquired hypothyroidism E03.9 [place] [address] [address] October, Chest pain, unspecified type R07.9 ; Family history of coronary artery disease Z82.49 ; Carpal tunnel syndrome of left wrist G56.02 ; Hypertension I10 ; Esophageal reflux K21.9 ; Arthralgia M25.50 ; Acquired hypothyroidism E03.9 ; Cough R05 ; Nausea R11.0 ; Weight gain R63.5 and BMI 45.0-49.9, adult Z68.42 [place] [address] [address] Jun, Acquired hypothyroidism E03. 9 and Cough R05 [place] [address] [address] May, [place] [address] [address] Feb, Tarsal tunnel syndrome of [place] lower extremities G57.53 and Neuropathy G62.9 [place] [address] [address] Dec, Pleuritis R09.1 [place] [address] [address] Nov, [place] [address] [place] [address] October, Arthralgia, unspecified join t M25.50 and Allergy, initial encounter T78.40XA [place] [address] [place] [address] October, [place] [address] [address] October, Acute recurrent maxillary si nusitis J01.01 and Arthralgia M25.50 [place] [address] [address] Sep, Pharyngitis due to other org anism J02.8 [place] [address] [address] Aug, Acute nasopharyngitis J00 [place] [address] [address] Aug, Multinodular goiter E04.2 [place] [address] [address] Aug, Thyroid nodule E04.1 [place] [address] [address] Jul, Tarsal tunnel syndrome of [place] lower extremities G57.53 [place] [address] [address] Jun, Pneumonia due to infectious organism, unspecified laterality, unspecified part of lung J18.9 [place] [address] [address] Jun, Bronchospasm with bronchitis , acute J20.9 [place] [address] [place] [id number] [address] [place] [address] May, Acute non-recurrent frontal sinusitis J01.10 [place] [address] [address] May, Flat foot [pes planus] (acqu ired), left foot M21.42 ; Flat foot [pes planus] (acquired), right foot M21.41 and Neuropathy G62.9 [place] [address] [address] Apr, Chronic tension-type headach e, intractable G44.221 ; Right lower quadrant abdominal pain R10.31 ; Cervicalgia M54.2 ; Acute gastritis without hemorrhage, unspecified gastritis type K29.00 and Hypertension I10 [place] [address] [address] Mar, Depression F32.9 and Anxiety disorder, unspecified F41.9 [place] [address] [address] Feb, Depressive disorder F32.9 an d Anxiety disorder, unspecified F41.9 [place] [address] [address] Jan, Dysuria R30.0 ; Lower abdomi nal pain R10.30 ; Acute bilateral low back pain without sciatica M54.5 ; Nausea and vomiting, unspecified intactability, vomiting of unspecified type R11.2 ; Pain in right foot M79.671 and Pain of left foot M79.672 [place] [address] [address] Dec, Urinary tract infection, sit e not specified N39.0 [place] [address] [address] Dec, [place] [address] [address] Nov, [place] [address] [address] Nov, Dysuria R30.[address] [address] Nov, Dysuria R30.0 and Acute cyst itis with hematuria N30.01 [facility] [address] [address] October, Nausea R11.0 [facility] [address] [place] [id number] [place] [address] October, Thyroid nodule E04.1 ; Carpa l tunnel syndrome, left upper limb G56.02 ; Carpal tunnel syndrome, right upper limb G56.01 and Constipation, unspecified constipation type K59.00 [facility] [address] [address] October, [place] [address] [address] October, Thyroid nodule E04.1 [place] [address] [address] October, Cold thyroid nodule E04.1 [place] [address] [address] October, [place] [address] [address] Sep, Thyroid nodule E04.1 [place] [address] [address] Sep, Thyroid nodule E04.1 [place] [address] [address] Sep, Thyroid nodule E04.1 ; Hyper tension I10 ; Esophageal reflux K21.9 and Hyperlipidemia, unspecified E78.5 [place] [address] [address] Aug, Other chronic pain G89.29 ; Sinusitis J32.9 and Hypertension I10 [place] [address] [place] [id number] [place] [address] Jul, [place] [address] [facility] [id number] [address] [place] [address] 15 Jul, 2015 [facility] [address] [place] [id number] [address] [place] [address] 10 Jul, 2015 Insomnia G47.00 and Arthralg ia M25.50 [facility] [address] [place] [id number] [place] [address] 10 Jul, 2015 Depressive disorder F32.9 an d Anxiety disorder, unspecified F41.9 [facility] [address] [facility] [id number] [address] [place] [address] May, Right-sided low back pain wi thout sciatica M54.5 and Depression F32.9 [place] [address] [place] [id number] [place] [address] Apr, Hematuria R31.9 [place] [address] [address] Mar, Other chronic pain G89.29 [place] [address] [place] [id number] [place] [address] Mar, Other chronic pain G89.29 [facility] [address] [place] [id number] [address] [place] [address] Feb, [facility] [address] [place] [id number] [address] [place] [address] Feb, Other chronic pain 338.29 ; Dysuria 788.1 ; UTI (urinary tract infection) 599.0 ; Insomnia 780.52 ; Hot flashes 627.2 and Hypertension 401.9 [facility] [address] [facility] [id number] [address] [place] [address] 14 Feb, 2015 Dysuria 788.1 [facility] [address] [place] [id number] [address] [place] [address] 02 Feb, 2015 [facility] [address] [place] [id number] [place] [address] Jan, [facility] [address] [id number] [address] [place] [address] Jan, [facility] [address] [id number] [address] [place] [address] Jan, Fibromyalgia 729.1 ; Hyperte nsion 401.9 ; Dysthymia 300.4 and Hot flashes 627.2 [facility] [address] [id number] [address] [place] [address] Dec, [facility] [address] [id number] [address] [place] [address] Dec, [facility] [address] [id number] [address] [place] [address] Dec, [facility] [address] [id number] [address] [place] [address] Nov, Other chronic pain 338.29 [facility] [address] [id number] [address] [place] [address] October, [facility] [address] [id number] [address] [place] [address] October, [facility] [address] [id number] [address] [place] [address] Sep, [facility] [address] [id number] [address] [place] [address] Sep, [facility] [address] [id number] [address] [place] [address] Aug, [facility] [address] [id number] [address] [place] [id number] Aug, [facility] [address] [id number] [address] [place] [id number] Aug, [facility] [address] [id number] [address] [place] [address] Aug, [facility] [address] [id number] [address] [place] [id number] Aug, [facility] [address] [id number] [address] [place] [address], [place] [address] Aug, [facility] [address] [id number] [address] [place] [address], [place] [address] Aug, [facility] [address] [id number] [address] [place] [address], [place] [address] Aug, [facility] [address] [id number] [address] [place] [address], [place] [address] Aug, [facility] [address] [id number] [address] [place] [address], [place] [address] Aug, [facility] [address] [id number] [address] [place] [address], [place] [address] Aug, [facility] [address] [id number] [address] [place] [address], [place] [address] Aug, [facility] [address] [id number] [address] [place] [address], [place] [address] Aug, [facility] [address] [id number] [address] [place] [address], [place] [address] Aug, [facility] [address] [id number] [address] [place] [address], [place] [address] Jul, [facility] [address] [id number] [address] [place] [address], [place] [address] Jul, 2014 [facility] [address] [id number] [address] [place] [address], [place] [address] Jul, 2014 [facility] [address] [id number] [address] [place] [address], [place] [address] Jul, 2014 [facility] [address] [id number] [address] [place] [address], [place] [address] Jul, 2014 [facility] [address] [id number] [address] [place] [id number] 12 Jul, 2014 [facility] [address] [id number] [address] [place] [address], [place] [address] Jun, [facility] [address] [id number] [address] [place] [address], [place] [address] Jun, [facility] [address] [id number] [address] [place] [address], [place] [address] Jun, [facility] [address] [id number] [address] [place] [address], [place] [address] Jun, [facility] [address] [id number] [address] [place] [address], [place] [address] May, [facility] [address] [id number] [address] [place] [address], [place] [address] May, [facility] [address] [id number] [address] [place] [address], [place] [address] May, [facility] [address] [id number] [address] [place] [address], [place] [address] May, [facility] [address] [id number] [address] [place] [address], [place] [address] May, [facility] [address] [id number] [address] [place] [address], [place] [address] May, [facility] [address] [id number] [address] [place] [address], [place] [address] May, [facility] [address] [id number] [address] [place] [address], [place] [address] May, [facility] [address] [id number] [address] [place] [address], [place] [address] May, [facility] [address] [id number] [address] [place] [address], [place] [address] May, [facility] [address] [id number] [address] [place] [address], [place] [address] Apr, [facility] [address] [id number] [address] [place] [address] Apr, [facility] [address] [id number] [address] [place] [address], [place] [address] Apr, [facility] [address] [id number] [address] [place] [address] Apr, [facility] [address] [id number] [address] [place] [address], [place] [address] Apr, [facility] [address] [id number] [address] [place] [address] Apr, [facility] [address] [id number] [address] [place] [address], [place] [address] Apr, [facility] [address] [id number] [address] [place] [address], [place] [address] Apr, [facility] [address] [id number] [address] [place] [address], [place] [address] Apr, [facility] [address] [id number] [address] [place] [address] Mar, [facility] [address] [id number] [address] [place] [address] Mar, [facility] [address] [id number] [address] [place] [address], [place] [address] Mar, [facility] [address] [id number] [address] [place] [address] Mar, [facility] [address] [id number] [address] [place] [address] Mar, [facility] [address] [id number] [address] [place] [address] Mar, [facility] [address] [id number] [address] [place] [phone] Mar, [facility] [address] [id number] [address] [place] [address] Mar, [facility] [address] [id number] [facility] [address] 30 Sep, 2013 [facility] [address] [id number] [facility] [address] 30 Sep, 2013 [facility] [address] [id number] [facility] [address] 24 Sep, 2013 [facility] [address] [id number] [address] [place] [address], [place] [address] 24 Sep, 2013 [facility] [address] [id number] [address] [place] [address], [place] [address] 22 Sep, 2013 [facility] [address] [id number] [address] [place] [address], [place] [address] 22 Sep, 2013 [facility] [address] [id number] [address] [place] [address], [place] [address] 10 Sep, 2013 [facility] [address] [id number] [address] [place] [address], [place] [address] 10 Sep, 2013 [facility] [address] [id number] [address] [place] [address], [place] [address] 03 Sep, 2013 [facility] [address] [id number] [address] [place] [address], [place] [address] 03 Sep, 2013 [facility] [address] [id number] [address] [place] [address], [place] [address] 03 Sep, 2013 [facility] [address] [id number] [address] [place] [address], [place] [address] 03 Sep, 2013 [facility] [address] [id number] [address] [place] [address], [place] [address] 03 Sep, 2013 [facility] [address] [id number] [address] [place] [address], [place] [address] 03 Feb, 2013 [facility] [address] [id number] [address] [place] [address], [place] [address] Jan, 2013 [facility] [address] [id number] [address] [place] [address], [place] [address] Jan, [facility] [address] [id number] [address] [place] [address], [place] [address] Dec, [facility] [address] [id number] [address] [place] [address], [place] [address] Dec, [facility] [address] [id number] [address] [place] [address], [place] [address] Dec, [facility] [address] [id number] [address] [place] [address], [place] [address] Dec, [facility] [address] [id number] [address] [place] [address], [place] [id number] Dec, [facility] [address] [id number] [address] [place] [address], [place] [address] Dec, [facility] [address] [id number] [address] [place] [address], [place] [address] Dec, [facility] [address] [id number] [address] [place] [address], [place] [address] Dec, [facility] [address] [id number] [address] [place] [address], [place] [address] Dec, [facility] [address] [id number] [address] [place] [address], [place] [address] Dec, [facility] [address] [id number] [address] [place] [address], [place] [address] Dec, [facility] [address] [id number] [address] [place] [address], [place] [address] Dec, [facility] [address] [id number] [address] [place] [address], [place] [address] Dec, [facility] [address] [id number] [address] [place] [address], [place] [address] Dec, [facility] [address] [id number] [address] [place] [address], [place] [address] Dec, [facility] [address] [id number] [address] [place] [address], [place] [address] Dec, [facility] [address] [id number] [address] [place] [address], [place] [address] Dec, [facility] [address] [id number] [address] [place] [address], [place] [address] Dec, [facility] [address] [id number] [address] [place] [address], [place] [address] Dec, [facility] [address] [id number] [address] [place] [address], [place] [address] Nov, [facility] [address] [id number] [address] [place] [address], [place] [address] Nov, [facility] [address] [id number] [address] [place] [address], [place] [address] Nov, [facility] [address] [id number] [address] [place] [address], [place] [address] Nov, [facility] [address] [id number] [address] [place] [address], [place] [address] Nov, [facility] [address] [id number] [address] [place] [address], [place] [address] Nov, [facility] [address] [id number] [address] [place] [address], [place] [address] Nov, [facility] [address] [id number] [address] [place] [address], [place] [address] Nov, [facility] [address] [id number] [address] [place] [address], [place] [address] Nov, [facility] [address] [id number] [address] [place] [address], [place] [address] October, [facility] [address] [id number] [address] [place] [address], [place] [address] October, [facility] [address] [id number] [address] [place] [address], [place] [address] October, [facility] [address] [id number] [facility] [address] October, [facility] [address] [id number] [facility] [address] October, [facility] [address] [id number] [address] [place] [address], [place] [address] October, [facility] [address] [id number] [address] [place] [address], [place] [address] October, [facility] [address] [id number] [address] [place] [address], [place] [address] October, [facility] [address] [id number] [address] [place] [address], [place] [address] Sep, [facility] [address] [id number] [address] [place] [address], [place] [address] Sep, [facility] [address] [id number] [address] [place] [address], [place] [address] Sep, [facility] [address] [id number] [address] [place] [address], [place] [address] Sep, [facility] [address] [id number] [address] [place] [address], [place] [address] Sep, [facility] [address] [id number] [address] [place] [address], [place] [address] Sep, [facility] [address] [id number] [address] [place] [address], [place] [address] Sep, [facility] [address] [id number] [address] [place] [address], [place] [address] Aug, [facility] [address] [id number] [address] [place] [address], [place] [address] Aug, [facility] [address] [id number] [address] [place] [address], [place] [address] Aug, [facility] [address] [id number] [address] [place] [address], [place] [address] Aug, [facility] [address] [id number] [address] [place] [address], [place] [address] Aug, [facility] [address] [id number] [address] [place] [address], [place] [address] Aug, [facility] [address] [id number] [address] [place] [address], [place] [address] Jul, [facility] [address] [id number] [address] [place] [address], [place] [address] Jul, [facility] [address] [id number] [address] [place] [address], [place] [address] Jul, [facility] [address] [id number] [address] [place] [address], [place] [address] Jul, [facility] [address] [id number] [address] [place] [address], [place] [address] Jul, [facility] [address] [id number] [address] [place] [address], [place] [address] Jul, [facility] [address] [id number] [address] [place] [address], [place] [address] Jun, [facility] [address] [id number] [address] [place] [address], [place] [address] Jun, [facility] [address] [id number] [address] [place] [address], [place] [address] Jun, [facility] [address] [id number] [address] [place] [address], [place] [address] Jun, [facility] [address] [id number] [address] [place] [address], [place] [address] Jun, [facility] [address] [id number] [address] [place] [address], [place] [address] Jun, [facility] [address] [id number] [address] [place] [address], [place] [address] Jun, [facility] [address] [id number] [address] [place] [address], [place] [address] Jun, [facility] [address] [id number] [address] [place] [address], [place] [address] Jun, [facility] [address] [id number] [address] [place] [address], [place] [address] 14 Jun, 2013 [facility] [address] [id number] [address] [place] [address], [place] [address] Jun, [facility] [address] [id number] [address] [place] [address], [place] [address] Jun, [facility] [address] [id number] [address] [place] [address], [place] [address] Jun, [facility] [address] [id number] [address] [place] [address], [place] [address] 30 May, 2013 [facility] [address] [id number] [address] [place] [address], [place] [address] 30 May, 2013 [facility] [address] [id number] [address] [place] [address], [place] [address] 30 May, 2013 [facility] [address] [id number] [address] [place] [address], [place] [address] May, [facility] [address] [id number] [address] [place] [address], [place] [address] May, [facility] [address] [id number] [address] [place] [address], [place] [address] 14 May, 2013 [facility] [address] [id number] [address] [place] [address], [place] [address] 14 May, 2013 [facility] [address] [id number] [address] [place] [address], [place] [address] May, [facility] [address] [id number] [address] [place] [address], [place] [address] May, [facility] [address] [id number] [address] [place] [address], [place] [address] May, [facility] [address] [id number] [address] [place] [address], [place] [address] May, [facility] [address] [id number] [address] [place] [address], [place] [address] May, [facility] [address] [id number] [address] [place] [address], [place] [address] May, [facility] [address] [id number] [address] [place] [address], [place] [address] May, [facility] [address] [id number] [address] [place] [address], [place] [address] May, [facility] [address] [id number] [address] [place] [address], [place] [address] May, [facility] [address] [id number] [address] [place] [address], [place] [address] May, [facility] [address] [id number] [address] [place] [address], [place] [address] May, [facility] [address] [id number] [address] [place] [address], [place] [address] May, [facility] [address] [id number] [address] [place] [address], [place] [address] May, [facility] [address] [id number] [address] [place] [address], [place] [address] May, [facility] [address] [id number] [address] [place] [address] Apr, [facility] [address] [id number] [address] [place] [address], [place] [address] Apr, [facility] [address] [id number] [address] [place] [address], [place] [address] Apr, [facility] [address] [id number] [address] [place] [address], [place] [address] Apr, [facility] [address] [id number] [address] [place] [address], [place] [address] 08 Mar, 2013 [facility] [address] [id number] [address] [place] [address], [place] [address] 23 Feb, 2012 [facility] [address] [id number] [address] [place] [address], [place] [address] 16 Feb, 2012 [facility] [address] [id number] [address] [place] [address], [place] [address] 13 Feb, 2012 [facility] [address] [id number] [address] [place] [address], [place] [address] 10 Feb, 2012 [facility] [address] [id number] [address] [place] [address], [place] [address] 09 Feb, 2013 [facility] [address] [id number] [address] [place] [address], [place] [address] 09 Feb, 2013 [facility] [address] [id number] [address] [place] [address], [place] [address] Jan, [facility] [address] [id number] [address] [place] [address], [place] [address] Jan, [facility] [address] [id number] [address] [place] [address], [place] [address] Jan, [facility] [address] [id number] [address] [place] [address], [place] [address] Dec, [facility] [address] [id number] [address] [place] [address], [place] [address] Dec, [facility] [address] [id number] [address] [place] [address], [place] [address] Dec, [facility] [address] [id number] [address] [place] [address], [place] [address] 15 Dec, 2012 [facility] [address] [id number] [address] [place] [address], [place] [address] Dec, [facility] [address] [id number] [address] [place] [address], [place] [address] Nov, [facility] [address] [id number] [address] [place] [address], [place] [address] 26 Nov, 2012 [facility] [address] [id number] [address] [place] [address], [place] [address] 20 Nov, 2012 [facility] [address] [id number] [address] [place] [address], [place] [address] 13 Nov, 2012 [facility] [address] [id number] [address] [place] [address], [place] [address] Nov, [facility] [address] [id number] [address] [place] [address], [place] [address] 08 Nov, 2012 [facility] [address] [id number] [address] [place] [address], [place] [address] 07 Nov, 2012 [facility] [address] [id number] [address] [place] [address], [place] [address] 06 Nov, 2012 [facility] [address] [id number] [address] [place] [address], [place] [address] 05 Nov, 2012 [facility] [address] [id number] [address] [place] [address], [place] [address] Nov, [facility] [address] [id number] [address] [place] [address], [place] [address] October, [facility] [address] [id number] [address] [place] [address], [place] [address] October, [facility] [address] [id number] [address] [place] [address], [place] [address] Sep, [facility] [address] [id number] [address] [place] [address], [place] [address] Sep, [facility] [address] [id number] [address] [place] [address], [place] [address] Sep, [facility] [address] [id number] [address] [place] [address], [place] [address] 06 Sep, 2012 [facility] [address] [id number] [address] [place] [address], [place] [address] Sep, [facility] [address] [id number] [address] [place] [address], [place] [address] Aug, [facility] [address] [id number] [address] [place] [address], [place] [address] Aug, [facility] [address] [id number] [address] [place] [address], [place] [address] Jul, [facility] [address] [id number] [address] [place] [address], [place] [address] Jul, [facility] [address] [id number] [address] [place] [address], [place] [address] Jun, [facility] [address] [id number] [address] [place] [address], [place] [address] Jun, [facility] [address] [id number] [address] [place] [address], [place] [address] May, [facility] [address] [id number] [address] [place] [address], [place] [address] May, [facility] [address] [id number] [address] [place] [address], [place] [address] May, [facility] [address] [id number] [address] [place] [address], [place] [address] May, [facility] [address] [id number] [address] [place] [address], [place] [address] Apr, [facility] [address] [id number] [address] [place] [address], [place] [address] Apr, [facility] [address] [id number] [address] [place] [address], [place] [address] Apr, [facility] [address] [id number] [address] [place] [address], [place] [address] Apr, [facility] [address] [id number] [address] [place] [address], [place] [address] Apr, [facility] [address] [id number] [address] [place] [address], [place] [address] 14 Apr, 2012 [facility] [address] [id number] [address] [place] [address], [place] [address] 14 Apr, 2012 [facility] [address] [id number] [address] [place] [address], [place] [address] Apr, [facility] [address] [id number] [address] [place] [address], [place] [address] Apr, [facility] [address] [id number] [address] [place] [address], [place] [address] 15 Mar, 2012 [facility] [address] [id number] [address] [place] [address], [place] [address] Mar, [facility] [address] [id number] [address] [place] [address], [place] [address] Feb, [facility] [address] [id number] [address] [place] [address], [place] [address] Jan, [facility] [address] [id number] [address] [place] [address], [place] [address] Jan, [facility] [address] [id number] [address] [place] [address], [place] [address] Dec, [facility] [address] [id number] [address] [place] [address], [place] [address] Nov, [facility] [address] [id number] [address] [place] [address], [place] [address] Nov, [facility] [address] [id number] [address] [place] [address], [place] [address] October, [facility] [address] [id number] [address] [place] [address], [place] [address] October, [facility] [address] [id number] [address] [place] [address], [place] [address] Sep, [facility] [address] [id number] [address] [place] [address], [place] [address] Sep, [facility] [address] [id number] [address] [place] [id number] May, [facility] [address] [id number] [address] [place] [id number] Apr, [facility] [address] [id number] [address] [place] [address] Apr, [facility] [address] [id number] [address] [place] [id number] Apr, [facility] [address] [id number] [address] [place] [id number] Apr, [facility] [address] [id number] [address] [place] [id number] Apr, [facility] [address] [id number] [address] [place] [address] Apr, [facility] [address] [id number] [address] [place] [id number] Apr, [facility] [address] [id number] [address] [place] [id number] Apr, [facility] [address] [id number] [address] [place] [id number] Mar, [facility] [address] [id number] [address] [place] [id number] Mar, [facility] [address] [id number] [address] [place] [id number] Mar, [facility] [address] [id number] [address] [place] [id number] Mar, [facility] [address] [id number] [address] [place] [id number] Mar, [facility] [address] [id number] [address] [place] [id number] Mar, IMMUNIZATIONS No Known Immunizations SOCIAL HISTORY [...]
--- OUTSIDE RECORDS SUMMARY | 2019-12-24 19:58 | XMS REPORT ---
Author Author Trey POLK Organization [facility] [place] Address [address] [place] [address] Care Team Providers Care Technical Project Lead Name Role Phone SYBIL POLK Unavailable PROBLEMS Type Condition ICD9-CM Code [id number] Code Onset Dates Condition S tatus SNOMED Code Problem Nondependent 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 Ac tive 821867410 Problem Other chronic pain G89.29 Active 1 08818396 Problem Unspecified epilepsy without mention of intractable ep ilepsy G40.909 Active 85723035 Problem Hyperlipidemia, unspecified E78.5 Ac tive 37375575 Problem Hypertension I10 Active 7317840 3 Problem Esophageal reflux K21.9 Active 23 8812133 Problem Rheumatoid arthritis M06.9 Active 60149401 Problem Cough R05 Active 93988644 Problem Acquired hypothyroidism E03.9 Active 946032280 Problem Unspecified open-angle glaucoma, stage unspecified H40.10X0 Feb, Active 10012836 Problem Presbyopia H52.4 Active 89401561 Problem Insomnia G47.00 Active 039717983 Problem Arthralgia M25.50 Active 36613036 Problem Thyroid nodule E04.1 Active 20067 5005 Problem Anxiety disorder, unspecified F41.9 Active 477816790 Problem Chronic tension-type headache, intractable G44.221 Active 281881670 Problem Neuropathy G62.9 Active 788042955 Problem Goiter E04.9 Active 6429417 Problem Multinodular goiter E04.2 Active 432146650 Problem Carpal tunnel syndrome of left wrist G56.02 Active 420993522593151 Problem Chronic obstructive pulmonary disease, unspecified COPD ty pe J44.9 Active 92308517 Problem BMI 40.0-44.9, adult Z68.41 Active 036406870 Problem Seasonal allergic rhinitis due to pollen J30.1 Active 86911360 Problem Depression F32.9 Active 52250789 Problem Essential hypertension I10 Active 06237285 Problem Depressive disorder F32.9 Active 18828887 Problem Right-sided low back pain without sciatica M54.5 Active 123369353 Problem Reactive airway disease with out complication, unspecified asthma severity, unspecified whether persistent J45.909 Active 631137270821 Problem Urge incontinence of urine N39.41 Act chen 57103430 Problem Abnormal laboratory test R89.9 Activ e 918218433 Problem COPD with exacerbation J44.1 Active 692057002 ALLERGIES No Information ENCOUNTERS Encounter Location Date Diagnosis [place] [address] [address] October, Acquired hypothyroidism E03. [address] [address] October, Acute gastritis without hemo rrhage, unspecified gastritis type K29.00 ; Epigastric pain R10.13 ; Essential hypertension I10 ; Screening for colon cancer Z12.11 and BMI 40.0-44.9, adult Z68.41 [place] [address] [address] October, [facility] [address] [address] October, Chest pain R07.9 and Morbid obesity E66.01 [facility] [address] [address] Sep, Generalized abdominal pain R 10.84 ; Morbid obesity E66.01 ; Non-intractable vomiting with nausea, unspecified vomiting type R11.2 and Seasonal allergic rhinitis due to pollen J30.1 [facility] [place] [address] [address] Jul, COPD with exacerbation J44.1 ; Viral upper respiratory tract infection J06.9 and Morbid obesity E66.01 [facility] [place] [address] [address] Jun, Viral upper respiratory trac t infection J06.9 [place] [address] [address] Apr, Abnormal laboratory test R89 .9 [facility] [place] [address] [facility] [id number] [address] [place] [address] Apr, Abnormal laboratory test R89 .9 [facility] [place] [address] [place] [id number] [address] [place] [address] Apr, Abnormal laboratory test R89 .9 [facility] [place] [address] [place] [id number] [address] [place] [address] Apr, [place] [address] [place] [id number] [address] [place] [address] Apr, [place] [address] [address] Apr, Nonintractable episodic head ache, unspecified headache type R51 ; Urge incontinence of urine N39.41 ; BMI 40.0-44.9, adult Z68.41 ; Myalgia M79.10 and Acute cystitis without hematuria N30.00 [place] [address] [place] [id number] [place] [address] Mar, Nasal congestion R09.81 ; Lo w back pain M54.5 ; Reactive airway disease without complication, unspecified asthma severity, unspecified whether persistent J45.909 ; Other chronic pain G89.29 ; Acute cystitis with hematuria N30.01 and BMI 40.0-44.9, adult Z68.41 [facility] [place] [address] [place] [id number] [address] [place] [address] Mar, Acute cystitis with hematuri a N30.01 [facility] [address] [place] [id number] [address] [place] [address] Mar, BMI 40.0-44.9, adult Z68.41 ; Acute cystitis with hematuria N30.01 ; Acute bilateral low back pain without sciatica M54.5 and Nausea R11.0 [facility] [place] [address] [place] [id number] [address] [place] [address] Mar, Hypertension I10 ; Acquired hypothyroidism E03.9 ; Esophageal reflux K21.9 ; Chronic obstructive pulmonary disease, unspecified COPD type J44.9 and BMI 40.0-44.9, adult Z68.41 [place] [address] [address] Mar, Hypertension I10 [place] [address] [address] Nov, Hyperlipidemia, unspecified E78.5 [place] [address] [address] October, Chest pain, unspecified type R07.9 and Acquired hypothyroidism E03.9 [place] [address] [address] October, Chest pain, unspecified type R07.9 ; Family history of coronary artery disease Z82.49 ; Carpal tunnel syndrome of left wrist G56.02 ; Hypertension I10 ; Esophageal reflux K21.9 ; Arthralgia M25.50 ; Acquired hypothyroidism E03.9 ; Cough R05 ; Nausea R11.0 ; Weight gain R63.5 and BMI 45.0-49.9, adult Z68.42 [place] [address] [address] Jun, Acquired hypothyroidism E03. 9 and Cough R05 [place] [address] [address] May, [place] [address] [address] Feb, Tarsal tunnel syndrome of timi th lower extremities G57.53 and Neuropathy G62.9 [place] [address] [address] Dec, Pleuritis R09.1 [place] [address] [address] Nov, [place] [address] [place] [address] October, Arthralgia, unspecified join t M25.50 and Allergy, initial encounter T78.40XA [place] [address] [place] [address] October, [place] [address] [address] October, Acute recurrent maxillary si nusitis J01.01 and Arthralgia M25.50 [place] [address] [address] Sep, Pharyngitis due to other org anism J02.8 [place] [address] [address] Aug, Acute nasopharyngitis J00 [place] [address] [address] Aug, Multinodular goiter E04.2 [place] [address] [address] Aug, Thyroid nodule E04.1 [place] [address] [address] Jul, Tarsal tunnel syndrome of timi th lower extremities G57.53 [place] [address] [address] Jun, Pneumonia due to infectious organism, unspecified laterality, unspecified part of lung J18.9 [place] [address] [address] Jun, Bronchospasm with bronchitis , acute J20.9 [place] [address] [place] [id number] [place] [address] May, Acute non-recurrent frontal sinusitis J01.10 [place] [address] [address] May, Flat foot [pes planus] (acqu ired), left foot M21.42 ; Flat foot [pes planus] (acquired), right foot M21.41 and Neuropathy G62.9 [place] [address] [address] Apr, Chronic tension-type headach e, intractable G44.221 ; Right lower quadrant abdominal pain R10.31 ; Cervicalgia M54.2 ; Acute gastritis without hemorrhage, unspecified gastritis type K29.00 and Hypertension I10 [place] [address] [address] Mar, Depression F32.9 and Anxiety disorder, unspecified F41.9 [place] [address] [address] Feb, Depressive disorder F32.9 an d Anxiety disorder, unspecified F41.9 [place] [address] [address] Jan, Dysuria R30.0 ; Lower abdomi nal pain R10.30 ; Acute bilateral low back pain without sciatica M54.5 ; Nausea and vomiting, unspecified intactability, vomiting of unspecified type R11.2 ; Pain in right foot M79.671 and Pain of left foot M79.672 [place] [address] [address] Dec, Urinary tract infection, sit e not specified N39.0 [place] [address] [address] Dec, [place] [address] [address] Nov, [place] [address] [address] Nov, Dysuria R30.[address] [address] Nov, Dysuria R30.0 and Acute cyst itis with hematuria N30.01 [facility] [place] [address] [address] October, Nausea R11.0 [facility] [place] [address] [place] [id number] [place] [address] October, Thyroid nodule E04.1 ; Carpa l tunnel syndrome, left upper limb G56.02 ; Carpal tunnel syndrome, right upper limb G56.01 and Constipation, unspecified constipation type K59.00 [facility] [place] [address] [address] October, [place] [address] [address] October, Thyroid nodule E04.1 [place] [address] [address] October, Cold thyroid nodule E04.1 [place] [address] [address] October, [place] [address] [address] Sep, Thyroid nodule E04.1 [place] [address] [address] Sep, Thyroid nodule E04.1 [place] [address] [address] Sep, Thyroid nodule E04.1 ; Hyper tension I10 ; Esophageal reflux K21.9 and Hyperlipidemia, unspecified E78.5 [place] [address] [address] Aug, Other chronic pain G89.29 ; Sinusitis J32.9 and Hypertension I10 [place] [address] [place] [id number] [place] [address] Jul, [place] [address] [facility] [id number] [address] [place] [address] 15 Jul, 2015 [facility] [place] [address] [place] [id number] [place] [address] 10 Jul, 2015 Insomnia G47.00 and Arthralg ia M25.50 [facility] [place] [address] [place] [id number] [place] [address] 10 Jul, 2015 Depressive disorder F32.9 an d Anxiety disorder, unspecified F41.9 [facility] [place] [address] [facility] [id number] [address] [place] [address] May, Right-sided low back pain wi thout sciatica M54.5 and Depression F32.9 [place] [address] [place] [id number] [place] [address] Apr, Hematuria R31.9 [place] [address] [address] Mar, Other chronic pain G89.29 [place] [address] [place] [id number] [address] [place] [address] Mar, Other chronic pain G89.29 [facility] [place] [address] [place] [id number] [place] [address] Feb, [facility] [place] [address] [place] [id number] [place] [address] Feb, Other chronic pain 338.29 ; Dysuria 788.1 ; UTI (urinary tract infection) 599.0 ; Insomnia 780.52 ; Hot flashes 627.2 and Hypertension 401.9 [facility] [place] [address] [facility] [id number] [address] [place] [address] 14 Feb, 2015 Dysuria 788.1 [facility] [place] [address] [place] [id number] [place] [address] 02 Feb, 2015 [facility] [place] [address] [place] [id number] [place] [address] Jan, [facility] [place] [address] [id number] [address] [place] [address] Jan, [facility] [place] [address] [id number] [address] [place] [address] Jan, Fibromyalgia 729.1 ; Hyperte nsion 401.9 ; Dysthymia 300.4 and Hot flashes 627.2 [facility] [place] [address] [id number] [address] [place] [address] Dec, [facility] [place] [address] [id number] [address] [place] [address] Dec, [facility] [place] [address] [id number] [address] [place] [address] Dec, [facility] [place] [address] [id number] [address] [place] [address] Nov, Other chronic pain 338.29 [facility] [place] [address] [id number] [address] [place] [address] October, [facility] [place] [address] [id number] [address] [place] [address] October, [facility] [place] [address] [id number] [address] [place] [address] Sep, [facility] [place] [address] [id number] [address] [place] [address] Sep, [facility] [place] [address] [id number] [address] [place] [address] Aug, [facility] [place] [address] [id number] [address] [place] [address] Aug, [facility] [place] [address] [id number] [address] [place] [address] Aug, [facility] [place] [address] [id number] [address] [place] [address] Aug, [facility] [place] [address] [id number] [address] [place] [address] Aug, [facility] [address] [id number] [address] [place] [address], [place] [address] Aug, [facility] [address] [id number] [address] [place] [address], [place] [address] Aug, [facility] [address] [id number] [address] [place] [address], [place] [address] Aug, [facility] [address] [id number] [address] [place] [address], [place] [address] Aug, [facility] [address] [id number] [address] [place] [address], [place] [address] Aug, [facility] [address] [id number] [address] [place] [address], [place] [address] Aug, [facility] [address] [id number] [address] [place] [address], [place] [address] Aug, [facility] [address] [id number] [address] [place] [address], [place] [address] Aug, [facility] [address] [id number] [address] [place] [address], [place] [address] Aug, [facility] [address] [id number] [address] [place] [address], [place] [address] Jul, [facility] [address] [id number] [address] [place] [address], [place] [address] Jul, 2014 [facility] [address] [id number] [address] [place] [address], [place] [address] Jul, 2014 [facility] [address] [id number] [address] [place] [address], [place] [address] Jul, 2014 [facility] [address] [id number] [address] [place] [address], [place] [address] Jul, 2014 [facility] [address] [id number] [address] [place] [address] 12 Jul, 2014 [facility] [address] [id number] [address] [place] [address], [place] [address] Jun, [facility] [address] [id number] [address] [place] [address], [place] [address] Jun, [facility] [address] [id number] [address] [place] [address], [place] [address] Jun, [facility] [address] [id number] [address] [place] [address], [place] [address] Jun, [facility] [address] [id number] [address] [place] [address], [place] [address] May, [facility] [address] [id number] [address] [place] [address], [place] [address] May, [facility] [address] [id number] [address] [place] [address], [place] [address] May, [facility] [address] [id number] [address] [place] [address], [place] [address] May, [facility] [address] [id number] [address] [place] [address], [place] [address] May, [facility] [address] [id number] [address] [place] [address], [place] [address] May, [facility] [address] [id number] [address] [place] [address], [place] [address] May, [facility] [address] [id number] [address] [place] [address], [place] [address] May, [facility] [address] [id number] [address] [place] [address], [place] [address] May, [facility] [address] [id number] [address] [place] [address], [place] [address] May, [facility] [address] [id number] [address] [place] [address], [place] [address] Apr, [facility] [address] [id number] [address] [place] [address] Apr, [facility] [address] [id number] [address] [place] [address], [place] [address] Apr, [facility] [address] [id number] [address] [place] [address] Apr, [facility] [address] [id number] [address] [place] [address], [place] [address] Apr, [facility] [address] [id number] [address] [place] [address] Apr, [facility] [address] [id number] [address] [place] [address], [place] [address] Apr, [facility] [address] [id number] [address] [place] [address], [place] [address] Apr, [facility] [address] [id number] [address] [place] [address], [place] [address] Apr, [facility] [address] [id number] [address] [place] [address] Mar, [facility] [address] [id number] [address] [place] [address] Mar, [facility] [address] [id number] [address] [place] [address], [place] [address] Mar, [facility] [address] [id number] [address] [place] [address] Mar, [facility] [address] [id number] [address] [place] [address] Mar, [facility] [address] [id number] [address] [place] [address] Mar, [facility] [address] [id number] [address] [place] [address] Mar, [facility] [address] [id number] [address] [place] [address] Mar, [facility] [address] [id number] [facility] [place] [address] 30 Sep, 2013 [facility] [address] [id number] [facility] [place] [address] 30 Sep, 2013 [facility] [address] [id number] [facility] [place] [address] 24 Sep, 2013 [facility] [address] [id number] [address] [place] [address], [place] [address] 24 Sep, 2013 [facility] [address] [id number] [address] [place] [address], [place] [address] 22 Sep, 2013 [facility] [address] [id number] [address] [place] [address], [place] [address] 22 Sep, 2013 [facility] [address] [id number] [address] [place] [address], [place] [address] 10 Sep, 2013 [facility] [address] [id number] [address] [place] [address], [place] [address] 10 Sep, 2013 [facility] [address] [id number] [address] [place] [address], [place] [address] 03 Sep, 2013 [facility] [address] [id number] [address] [place] [address], [place] [address] 03 Sep, 2013 [facility] [address] [id number] [address] [place] [address], [place] [address] 03 Sep, 2013 [facility] [address] [id number] [address] [place] [address], [place] [address] 03 Sep, 2013 [facility] [address] [id number] [address] [place] [address], [place] [id number] 03 Sep, 2013 [facility] [address] [id number] [address] [place] [address], [place] [id number] 03 Feb, 2013 [facility] [address] [id number] [address] [place] [address], [place] [address] Jan, 2013 [facility] [address] [id number] [address] [place] [address], [place] [address] Jan, [facility] [address] [id number] [address] [place] [address], [place] [address] Dec, [facility] [address] [id number] [address] [place] [address], [place] [address] Dec, [facility] [address] [id number] [address] [place] [address], [place] [address] Dec, [facility] [address] [id number] [address] [place] [address], [place] [address] Dec, [facility] [address] [id number] [address] [place] [address], [place] [id number] Dec, [facility] [address] [id number] [address] [place] [address], [place] [id number] Dec, [facility] [address] [id number] [address] [place] [address], [place] [address] Dec, [facility] [address] [id number] [address] [place] [address], [place] [address] Dec, [facility] [address] [id number] [address] [place] [address], [place] [address] Dec, [facility] [address] [id number] [address] [place] [address], [place] [address] Dec, [facility] [address] [id number] [address] [place] [address], [place] [address] Dec, [facility] [address] [id number] [address] [place] [address], [place] [address] Dec, [facility] [address] [id number] [address] [place] [address], [place] [address] Dec, [facility] [address] [id number] [address] [place] [address], [place] [address] Dec, [facility] [address] [id number] [address] [place] [address], [place] [address] Dec, [facility] [address] [id number] [address] [place] [address], [place] [address] Dec, [facility] [address] [id number] [address] [place] [address], [place] [address] Dec, [facility] [address] [id number] [address] [place] [address], [place] [id number] Dec, [facility] [address] [id number] [address] [place] [address], [place] [address] Dec, [facility] [address] [id number] [address] [place] [address], [place] [address] Nov, [facility] [address] [id number] [address] [place] [address], [place] [address] Nov, [facility] [address] [id number] [address] [place] [address], [place] [address] Nov, [facility] [address] [id number] [address] [place] [address], [place] [id number] Nov, [facility] [address] [id number] [address] [place] [address], [place] [address] Nov, [facility] [address] [id number] [address] [place] [address], [place] [address] Nov, [facility] [address] [id number] [address] [place] [address], [place] [address] Nov, [facility] [address] [id number] [address] [place] [address], [place] [address] Nov, [facility] [address] [id number] [address] [place] [address], [place] [address] Nov, [facility] [address] [id number] [address] [place] [address], [place] [address] October, [facility] [address] [id number] [address] [place] [address], [place] [address] October, [facility] [address] [id number] [address] [place] [address], [place] [address] October, [facility] [address] [id number] [facility] [place] [address] October, [facility] [address] [id number] [facility] [place] [address] October, [facility] [address] [id number] [address] [place] [address], [place] [address] October, [facility] [address] [id number] [address] [place] [address], [place] [address] October, [facility] [address] [id number] [address] [place] [address], [place] [address] October, [facility] [address] [id number] [address] [place] [address], [place] [address] Sep, [facility] [address] [id number] [address] [place] [address], [place] [address] Sep, [facility] [address] [id number] [address] [place] [address], [place] [address] Sep, [facility] [address] [id number] [address] [place] [address], [place] [address] Sep, [facility] [address] [id number] [address] [place] [address], [place] [address] Sep, [facility] [address] [id number] [address] [place] [address], [place] [address] Sep, [facility] [address] [id number] [address] [place] [address], [place] [address] Sep, [facility] [address] [id number] [address] [place] [address], [place] [address] Aug, [facility] [address] [id number] [address] [place] [address], [place] [address] Aug, [facility] [address] [id number] [address] [place] [address], [place] [address] Aug, [facility] [address] [id number] [address] [place] [address], [place] [address] Aug, [facility] [address] [id number] [address] [place] [address], [place] [address] Aug, [facility] [address] [id number] [address] [place] [address], [place] [address] Aug, [facility] [address] [id number] [address] [place] [address], [place] [address] Jul, [facility] [address] [id number] [address] [place] [address], [place] [address] Jul, [facility] [address] [id number] [address] [place] [address], [place] [address] Jul, [facility] [address] [id number] [address] [place] [address], [place] [address] Jul, [facility] [address] [id number] [address] [place] [address], [place] [address] Jul, [facility] [address] [id number] [address] [place] [address], [place] [address] Jul, [facility] [address] [id number] [address] [place] [address], [place] [address] Jun, [facility] [address] [id number] [address] [place] [address], [place] [address] Jun, [facility] [address] [id number] [address] [place] [address], [place] [address] Jun, [facility] [address] [id number] [address] [place] [address], [place] [address] Jun, [facility] [address] [id number] [address] [place] [address], [place] [address] Jun, [facility] [address] [id number] [address] [place] [address], [place] [address] Jun, [facility] [address] [id number] [address] [place] [address], [place] [address] Jun, [facility] [address] [id number] [address] [place] [address], [place] [address] Jun, [facility] [address] [id number] [address] [place] [address], [place] [address] Jun, [facility] [address] [id number] [address] [place] [address], [place] [address] 14 Jun, 2013 [facility] [address] [id number] [address] [place] [address], [place] [address] Jun, [facility] [address] [id number] [address] [place] [address], [place] [address] Jun, [facility] [address] [id number] [address] [place] [address], [place] [address] Jun, [facility] [address] [id number] [address] [place] [address], [place] [address] 30 May, 2013 [facility] [address] [id number] [address] [place] [address], [place] [address] 30 May, 2013 [facility] [address] [id number] [address] [place] [address], [place] [address] 30 May, 2013 [facility] [address] [id number] [address] [place] [address], [place] [address] May, [facility] [address] [id number] [address] [place] [address], [place] [address] May, [facility] [address] [id number] [address] [place] [address], [place] [address] 14 May, 2013 [facility] [address] [id number] [address] [place] [address], [place] [address] 14 May, 2013 [facility] [address] [id number] [address] [place] [address], [place] [address] May, [facility] [address] [id number] [address] [place] [address], [place] [address] May, [facility] [address] [id number] [address] [place] [address], [place] [address] May, [facility] [address] [id number] [address] [place] [address], [place] [address] May, [facility] [address] [id number] [address] [place] [address], [place] [address] May, [facility] [address] [id number] [address] [place] [address], [place] [address] May, [facility] [address] [id number] [address] [place] [address], [place] [address] May, [facility] [address] [id number] [address] [place] [address], [place] [address] May, [facility] [address] [id number] [address] [place] [address], [place] [address] May, [facility] [address] [id number] [address] [place] [address], [place] [address] May, [facility] [address] [id number] [address] [place] [address], [place] [address] May, [facility] [address] [id number] [address] [place] [address], [place] [address] May, [facility] [address] [id number] [address] [place] [address], [place] [address] May, [facility] [address] [id number] [address] [place] [address], [place] [address] May, [facility] [address] [id number] [address] [place] [address] Apr, [facility] [address] [id number] [address] [place] [address], [place] [address] Apr, [facility] [address] [id number] [address] [place] [address], [place] [address] Apr, [facility] [address] [id number] [address] [place] [address], [place] [address] Apr, [facility] [address] [id number] [address] [place] [address], [place] [address] 08 Mar, 2013 [facility] [address] [id number] [address] [place] [address], [place] [address] 23 Feb, 2012 [facility] [address] [id number] [address] [place] [address], [place] [address] 16 Feb, 2012 [facility] [address] [id number] [address] [place] [address], [place] [address] 13 Feb, 2012 [facility] [address] [id number] [address] [place] [address], [place] [address] 10 Feb, 2012 [facility] [address] [id number] [address] [place] [address], [place] [address] 09 Feb, 2013 [facility] [address] [id number] [address] [place] [address], [place] [address] 09 Feb, 2013 [facility] [address] [id number] [address] [place] [address], [place] [address] Jan, [facility] [address] [id number] [address] [place] [address], [place] [address] Jan, [facility] [address] [id number] [address] [place] [address], [place] [address] Jan, [facility] [address] [id number] [address] [place] [address], [place] [address] Dec, [facility] [address] [id number] [address] [place] [address], [place] [address] Dec, [facility] [address] [id number] [address] [place] [address], [place] [address] Dec, [facility] [address] [id number] [address] [place] [address], [place] [address] 15 Dec, 2012 [facility] [address] [id number] [address] [place] [address], [place] [address] Dec, [facility] [address] [id number] [address] [place] [address], [place] [address] Nov, [facility] [address] [id number] [address] [place] [address], [place] [address] 26 Nov, 2012 [facility] [address] [id number] [address] [place] [address], [place] [address] 20 Nov, 2012 [facility] [address] [id number] [address] [place] [address], [place] [address] 13 Nov, 2012 [facility] [address] [id number] [address] [place] [address], [place] [address] Nov, [facility] [address] [id number] [address] [place] [address], [place] [address] 08 Nov, 2012 [facility] [address] [id number] [address] [place] [address], [place] [address] 07 Nov, 2012 [facility] [address] [id number] [address] [place] [address], [place] [address] 06 Nov, 2012 [facility] [address] [id number] [address] [place] [address], [place] [address] 05 Nov, 2012 [facility] [address] [id number] [address] [place] [address], [place] [address] Nov, [facility] [address] [id number] [address] [place] [address], [place] [address] October, [facility] [address] [id number] [address] [place] [address], [place] [address] October, [facility] [address] [id number] [address] [place] [address], [place] [address] Sep, [facility] [address] [id number] [address] [place] [address], [place] [address] Sep, [facility] [address] [id number] [address] [place] [address], [place] [address] Sep, [facility] [address] [id number] [address] [place] [address], [place] [address] 06 Sep, 2012 [facility] [address] [id number] [address] [place] [address], [place] [address] Sep, [facility] [address] [id number] [address] [place] [address], [place] [address] Aug, [facility] [address] [id number] [address] [place] [address], [place] [address] Aug, [facility] [address] [id number] [address] [place] [address], [place] [address] Jul, [facility] [address] [id number] [address] [place] [address], [place] [address] Jul, [facility] [address] [id number] [address] [place] [address], [place] [address] Jun, [facility] [address] [id number] [address] [place] [address], [place] [address] Jun, [facility] [address] [id number] [address] [place] [address], [place] [address] May, [facility] [address] [id number] [address] [place] [address], [place] [address] May, [facility] [address] [id number] [address] [place] [address], [place] [address] May, [facility] [address] [id number] [address] [place] [address], [place] [address] May, [facility] [address] [id number] [address] [place] [address], [place] [address] Apr, [facility] [address] [id number] [address] [place] [address], [place] [address] Apr, [facility] [address] [id number] [address] [place] [address], [place] [address] Apr, [facility] [address] [id number] [address] [place] [address], [place] [address] Apr, [facility] [address] [id number] [address] [place] [address], [place] [address] Apr, [facility] [address] [id number] [address] [place] [address], [place] [address] 14 Apr, 2012 [facility] [address] [id number] [address] [place] [address], [place] [address] 14 Apr, 2012 [facility] [address] [id number] [address] [place] [address], [place] [address] Apr, [facility] [address] [id number] [address] [place] [address], [place] [address] Apr, [facility] [address] [id number] [address] [place] [address], [place] [address] 15 Mar, 2012 [facility] [address] [id number] [address] [place] [address], [place] [address] Mar, [facility] [address] [id number] [address] [place] [address], [place] [address] Feb, [facility] [address] [id number] [address] [place] [address], [place] [address] Jan, [facility] [address] [id number] [address] [place] [address], [place] [address] Jan, [facility] [address] [id number] [address] [place] [address], [place] [address] Dec, [facility] [address] [id number] [address] [place] [address], [place] [address] Nov, [facility] [address] [id number] [address] [place] [address], [place] [address] Nov, [facility] [address] [id number] [address] [place] [address], [place] [address] October, [facility] [address] [id number] [address] [place] [address], [place] [address] October, [facility] [address] [id number] [address] [place] [address], [place] [address] Sep, [facility] [address] [id number] [address] [place] [address], [place] [address] Sep, [facility] [place] [address] [id number] [address] [place] [address] May, [facility] [address] [id number] [address] [place] [address] Apr, [facility] [address] [id number] [address] [place] [address] Apr, [facility] [address] [id number] [address] [place] [address] Apr, [facility] [address] [id number] [address] [place] [address] Apr, [facility] [address] [id number] [address] [place] [address] Apr, [facility] [address] [id number] [address] [place] [address] Apr, [facility] [place] [address] [id number] [address] [place] [address] Apr, [facility] [place] [address] [id number] [address] [place] [address] Apr, [facility] [place] [address] [id number] [address] [place] [address] Mar, [facility] [place] [address] [id number] [address] [place] [address] Mar, [facility] [place] [address] [id number] [address] [place] [address] Mar, [facility] [place] [address] [id number] [address] [place] [address] Mar, [facility] [place] [address] [id number] [address] [place] [address] Mar, [facility] [place] [address] [id number] [address] [place] [address] Mar, IMMUNIZATIONS No Known Immunizations SOCIAL HISTORY [...] surgeryx3 Hospitalization History Mental floor at [facility]
--- OUTSIDE RECORDS SUMMARY | 2019-12-24 19:59 | XMS REPORT ---
Author Author Trey Lynn Organization [facility] Address [address] [place] [address] Care Team Providers Care [facility] Insurance Clerk Name Role Phone MEGHA Lynn Unavailable PROBLEMS Type Condition ICD9-CM Code FDG68-QT Code Onset Dates Condition S tatus SNOMED Code Problem Nondependent 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 Ac tive 892805573 Problem Other chronic pain G89.29 Active 1 71968458 Problem Unspecified epilepsy without mention of intractable ep ilepsy G40.909 Active 52290621 Problem Hyperlipidemia, unspecified E78.5 Ac tive 11785611 Problem Hypertension I10 Active 6806475 3 Problem Esophageal reflux K21.9 Active 23 0475237 Problem Rheumatoid arthritis M06.9 Active 79886710 Problem Cough R05 Active 16514334 Problem Acquired hypothyroidism E03.9 Active 411729120 Problem Unspecified open-angle glaucoma, stage unspecified H40.10X0 Feb, Active 29843518 Problem Presbyopia H52.4 Active 67275335 Problem Insomnia G47.00 Active 127202591 Problem Arthralgia M25.50 Active 45838918 Problem Thyroid nodule E04.1 Active 97418 5005 Problem Anxiety disorder, unspecified F41.9 Active 072731857 Problem Chronic tension-type headache, intractable G44.221 Active 487422810 Problem Neuropathy G62.9 Active 659190061 Problem Goiter E04.9 Active 7794180 Problem Multinodular goiter E04.2 Active 629325741 Problem Carpal tunnel syndrome of left wrist G56.02 Active 851528487564125 Problem Chronic obstructive pulmonary disease, unspecified COPD ty pe J44.9 Active 47918811 Problem BMI 40.0-44.9, adult Z68.41 Active 150554982 Problem Seasonal allergic rhinitis due to pollen J30.1 Active 01633145 Problem Depression F32.9 Active 95576194 Problem Essential hypertension I10 Active 35939970 Problem Depressive disorder F32.9 Active 47527709 Problem Right-sided low back pain without sciatica M54.5 Active 765355634 Problem Reactive airway disease with out complication, unspecified asthma severity, unspecified whether persistent J45.909 Active 244255382523 Problem Urge incontinence of urine N39.41 Act chen 54825282 Problem Abnormal laboratory test R89.9 Activ e 354650832 Problem COPD with exacerbation J44.1 Active 246724247 ALLERGIES No Information ENCOUNTERS Encounter Location Date Diagnosis [place] [address] [address] October, Acquired hypothyroidism E03. 9 [place] [address] [address] October, Acute gastritis without hemo rrhage, unspecified gastritis type K29.00 ; Epigastric pain R10.13 ; Essential hypertension I10 ; Screening for colon cancer Z12.11 and BMI 40.0-44.9, adult Z68.41 [place] [address] [address] October, [facility] [place] [address] [address] October, Chest pain R07.9 and Morbid obesity E66.01 [facility] [place] [address] [address] Sep, Generalized abdominal pain R 10.84 ; Morbid obesity E66.01 ; Non-intractable vomiting with nausea, unspecified vomiting type R11.2 and Seasonal allergic rhinitis due to pollen J30.1 [facility] [place] [address] [place] [id number] [place] [address] Jul, COPD with exacerbation J44.1 ; Viral upper respiratory tract infection J06.9 and Morbid obesity E66.01 [facility] [address] [place] [id number] [place] [address] Jun, Viral upper respiratory trac t infection J06.9 [place] [address] [place] [address] [place] [address] Apr, Abnormal laboratory test R89 .9 [facility] [address] [place] [id number] [place] [address] Apr, Abnormal laboratory test R89 .9 [facility] [address] [place] [id number] [place] [address] Apr, Abnormal laboratory test R89 .9 [facility] [address] [place] [id number] [place] [address] Apr, [place] [address] [address] Apr, [place] [address] [address] Apr, Nonintractable episodic head ache, unspecified headache type R51 ; Urge incontinence of urine N39.41 ; BMI 40.0-44.9, adult Z68.41 ; Myalgia M79.10 and Acute cystitis without hematuria N30.00 [facility] [address] [place] [id number] [place] [address] Mar, Nasal congestion R09.81 ; Lo w back pain M54.5 ; Reactive airway disease without complication, unspecified asthma severity, unspecified whether persistent J45.909 ; Other chronic pain G89.29 ; Acute cystitis with hematuria N30.01 and BMI 40.0-44.9, adult Z68.41 [facility] [address] [place] [id number] [place] [address] Mar, Acute cystitis with hematuri a N30.01 [facility] [address] [place] [id number] [place] [address] Mar, BMI 40.0-44.9, adult Z68.41 ; Acute cystitis with hematuria N30.01 ; Acute bilateral low back pain without sciatica M54.5 and Nausea R11.0 [facility] [address] [address] Mar, Hypertension I10 ; Acquired hypothyroidism E03.9 ; Esophageal reflux K21.9 ; Chronic obstructive pulmonary disease, unspecified COPD type J44.9 and BMI 40.0-44.9, adult Z68.41 [place] [address] [address] Mar, Hypertension I10 [place] [address] [address] Nov, Hyperlipidemia, unspecified E78.5 [place] [address] [address] October, Chest pain, unspecified type R07.9 and Acquired hypothyroidism E03.9 [place] [address] [address] October, Chest pain, unspecified type R07.9 ; Family history of coronary artery disease Z82.49 ; Carpal tunnel syndrome of left wrist G56.02 ; Hypertension I10 ; Esophageal reflux K21.9 ; Arthralgia M25.50 ; Acquired hypothyroidism E03.9 ; Cough R05 ; Nausea R11.0 ; Weight gain R63.5 and BMI 45.0-49.9, adult Z68.42 [place] [address] [address] Jun, Acquired hypothyroidism E03. 9 and Cough R05 [place] [address] [address] May, [place] [address] [address] Feb, Tarsal tunnel syndrome of timi th lower extremities G57.53 and Neuropathy G62.9 [place] [address] [place] [id number] [place] [address] Dec, Pleuritis R09.1 [place] [address] [address] Nov, [place] [address] [id number] [address] [place] [address] October, Arthralgia, unspecified join t M25.50 and Allergy, initial encounter T78.40XA [place] [address] [address] [facility] [id number] [address] [place] [address] October, [place] [address] [facility] [id number] [address] [place] [address] October, Acute recurrent maxillary si nusitis J01.01 and Arthralgia M25.50 [place] [address] [place] [id number] [place] [address] Sep, Pharyngitis due to other org anism J02.8 [place] [address] [place] [id number] [place] [address] Aug, Acute nasopharyngitis J00 [place] [address] [place] [id number] [place] [address] Aug, Multinodular goiter E04.2 [place] [address] [place] [id number] [place] [address] Aug, Thyroid nodule E04.1 [place] [address] [place] [id number] [place] [address] 17 Jul, 2016 Tarsal tunnel syndrome of timi th lower extremities G57.53 [place] [address] [place] [id number] [place] [address] Jun, Pneumonia due to infectious organism, unspecified laterality, unspecified part of lung J18.9 [place] [address] [place] [id number] [place] [address] Jun, Bronchospasm with bronchitis , acute J20.9 [place] [address] [address] [facility] [id number] [address] [place] [address] May, Acute non-recurrent frontal sinusitis J01.10 [place] [address] [place] [id number] [place] [address] May, Flat foot [pes planus] (acqu ired), left foot M21.42 ; Flat foot [pes planus] (acquired), right foot M21.41 and Neuropathy G62.9 [place] [address] [place] [id number] [place] [address] Apr, Chronic tension-type headach e, intractable G44.221 ; Right lower quadrant abdominal pain R10.31 ; Cervicalgia M54.2 ; Acute gastritis without hemorrhage, unspecified gastritis type K29.00 and Hypertension I10 [place] [address] [address] Mar, Depression F32.9 and Anxiety disorder, unspecified F41.9 [place] [address] [address] Feb, Depressive disorder F32.9 an d Anxiety disorder, unspecified F41.9 [place] [address] [address] Jan, Dysuria R30.0 ; Lower abdomi nal pain R10.30 ; Acute bilateral low back pain without sciatica M54.5 ; Nausea and vomiting, unspecified intactability, vomiting of unspecified type R11.2 ; Pain in right foot M79.671 and Pain of left foot M79.672 [place] [address] [address] Dec, Urinary tract infection, sit e not specified N39.0 [place] [address] [address] Dec, [place] [address] [address] Nov, [place] [address] [address] Nov, Dysuria R30.0 [place] [address] [address] Nov, Dysuria R30.0 and Acute cyst itis with hematuria N30.01 [place] [address] [address] October, Nausea R11.0 [facility] [address] [place] [id number] [place] [address] October, Thyroid nodule E04.1 ; Carpa l tunnel syndrome, left upper limb G56.02 ; Carpal tunnel syndrome, right upper limb G56.01 and Constipation, unspecified constipation type K59.00 [place] [address] [address] October, [place] [address] [address] October, Thyroid nodule E04.1 [place] [address] [address] October, Cold thyroid nodule E04.1 [place] [address] [address] October, [place] [address] [address] Sep, Thyroid nodule E04.1 [place] [address] [address] Sep, Thyroid nodule E04.1 [place] [address] [address] Sep, Thyroid nodule E04.1 ; Hyper tension I10 ; Esophageal reflux K21.9 and Hyperlipidemia, unspecified E78.5 [place] [address] [address] Aug, Other chronic pain G89.29 ; Sinusitis J32.9 and Hypertension I10 [place] [address] [address] Jul, [facility] [address] [facility] [id number] [address] [place] [address] 15 Jul, 2015 [facility] [address] [facility] [id number] [address] [place] [address] Jul, Insomnia G47.00 and Arthralg ia M25.50 [facility] [address] [facility] [id number] [address] [place] [address] Jul, Depressive disorder F32.9 an d Anxiety disorder, unspecified F41.9 [facility] [address] [facility] [id number] [address] [place] [address] May, Right-sided low back pain wi thout sciatica M54.5 and Depression F32.9 [place] [address] [place] [id number] [place] [address] Apr, Hematuria R31.9 [place] [address] [place] [id number] [place] [address] Mar, Other chronic pain G89.29 [facility] [address] [place] [id number] [place] [address] Mar, Other chronic pain G89.29 [facility] [address] [place] [id number] [place] [address] Feb, [facility] [address] [facility] [id number] [address] [place] [address] Feb, Other chronic pain 338.29 ; Dysuria 788.1 ; UTI (urinary tract infection) 599.0 ; Insomnia 780.52 ; Hot flashes 627.2 and Hypertension 401.9 [facility] [address] [facility] [id number] [address] [place] [address] 14 Feb, 2015 Dysuria 788.1 [facility] [address] [place] [id number] [place] [address] 02 Feb, 2015 [facility] [address] [place] [id number] [place] [address] Jan, [facility] [address] [id number] [address] [place] [address] Jan, [facility] [address] [id number] [address] [place] [address] Jan, Fibromyalgia 729.1 ; Hyperte nsion 401.9 ; Dysthymia 300.4 and Hot flashes 627.2 [facility] [address] [id number] [address] [place] [address] Dec, [facility] [address] [id number] [address] [place] [address] Dec, [facility] [address] [id number] [address] [place] [address] Dec, [facility] [address] [id number] [address] [place] [address] Nov, Other chronic pain 338.29 [facility] [address] [id number] [address] [place] [address] October, [facility] [address] [id number] [address] [place] [address] October, [facility] [address] [id number] [address] [place] [address] Sep, [facility] [address] [id number] [address] [place] [address] Sep, [facility] [address] [id number] [address] [place] [address] Aug, [facility] [address] [id number] [address] [place] [address] Aug, [facility] [address] [id number] [address] [place] [address] Aug, [facility] [address] [id number] [address] [place] [address] Aug, [facility] [address] [id number] [address] [place] [address], [place] [address] Aug, [facility] [address] [id number] [address] [place] [address], [place] [address] Aug, [facility] [place] [facility] [address] [id number] [address] [place] [address], [place] [address] Aug, [facility] [address] [id number] [address] [place] [address], [place] [address] Aug, 2014 [facility] [address] [id number] [address] [place] [address], [place] [address] Aug, [facility] [address] [id number] [address] [place] [address], [place] [address] Aug, [facility] [address] [id number] [address] [place] [address], [place] [address] Aug, [facility] [address] [id number] [address] [place] [address], [place] [address] Aug, [facility] [address] [id number] [address] [place] [address], [place] [address] Aug, [facility] [address] [id number] [address] [place] [address], [place] [address] Aug, [facility] [address] [id number] [address] [place] [address], [place] [address] Jul, 2014 [facility] [place] [facility] [address] [id number] [address] [place] [address], [place] [address] Jul, 2014 [facility] [address] [id number] [address] [place] [address], [place] [address] Jul, 2014 [facility] [place] [facility] [address] [id number] [address] [place] [address], [place] [address] Jul, 2014 [facility] [place] [facility] [address] [id number] [address] [place] [address], [place] [address] Jul, 2014 [facility] [place] [facility] [address] [id number] [address] [place] [address], [place] [address] Jul, [facility] [address] [id number] [address] [place] [address], [place] [address] Jun, [facility] [address] [id number] [address] [place] [address], [place] [address] Jun, [facility] [address] [id number] [address] [place] [address], [place] [address] 15 Jun, 2014 [facility] [address] [id number] [address] [place] [address], [place] [address] Jun, [facility] [address] [id number] [address] [place] [address], [place] [address] May, [facility] [address] [id number] [address] [place] [address], [place] [address] May, [facility] [address] [id number] [address] [place] [address], [place] [address] May, [facility] [address] [id number] [address] [place] [address], [place] [address] May, [facility] [address] [id number] [address] [place] [address], [place] [address] May, [facility] [address] [id number] [address] [place] [address], [place] [address] May, [facility] [address] [id number] [address] [place] [address], [place] [address] May, [facility] [place] [facility] [address] [id number] [address] [place] [address], [place] [address] May, [facility] [place] [facility] [address] [id number] [address] [place] [address], [place] [address] May, [facility] [place] [facility] [address] [id number] [address] [place] [address], [place] [address] May, [facility] [place] [facility] [address] [id number] [address] [place] [address], [place] [address] Apr, [facility] [place] [facility] [address] [id number] [address] [place] [address], [place] [address] Apr, [facility] [place] [facility] [address] [id number] [address] [place] [address], [place] [address] Apr, [facility] [place] [facility] [address] [id number] [address] [place] [address], [place] [address] Apr, [facility] [place] [facility] [address] [id number] [address] [place] [address], [place] [address] Apr, [facility] [place] [facility] [address] [id number] [address] [place] [address], [place] [address] Apr, [facility] [place] [facility] [address] [id number] [address] [place] [address], [place] [address] Apr, [facility] [place] [facility] [address] [id number] [address] [place] [address], [place] [address] Apr, [facility] [place] [facility] [address] [id number] [address] [place] [address], [place] [address] Apr, [facility] [place] [facility] [address] [id number] [address] [place] [address], [place] [address] Mar, [facility] [place] [facility] [address] [id number] [address] [place] [address], [place] [address] Mar, [facility] [place] [facility] [address] [id number] [address] [place] [address], [place] [address] Mar, [facility] [place] [facility] [address] [id number] [address] [place] [address], [place] [address] Mar, [facility] [place] [facility] [address] [id number] [address] [place] [address], [place] [address] Mar, [facility] [place] [facility] [address] [id number] [address] [place] [address], [place] [address] Mar, [facility] [place] [facility] [address] [id number] [address] [place] [address], [place] [address] Mar, [facility] [place] [facility] [address] [id number] [address] [place] [address], [place] [address] Mar, [facility] [place] [facility] [address] [id number] [facility] [place] [address] 30 Sep, 2013 [facility] [address] [id number] [facility] [place] [address] 30 Sep, 2013 [facility] [place] [facility] [address] [id number] [address] [place] [address], [place] [address] 24 Feb, 2013 [facility] [place] [facility] [address] [id number] [address] [place] [address], [place] [address] 24 Feb, 2013 [facility] [address] [id number] [address] [place] [address], [place] [address] 22 Feb, 2013 [facility] [address] [id number] [address] [place] [address], [place] [address] 22 Feb, 2013 [facility] [address] [id number] [address] [place] [address], [place] [address] 10 Feb, 2013 [facility] [address] [id number] [address] [place] [address], [place] [address] 10 Feb, 2013 [facility] [address] [id number] [address] [place] [address], [place] [address] 03 Feb, 2013 [facility] [place] [facility] [address] [id number] [address] [place] [address], [place] [id number] 03 Sep, 2013 [facility] [address] [id number] [address] [place] [address], [place] [id number] 03 Feb, 2013 [facility] [address] [id number] [address] [place] [address], [place] [id number] 03 Sep, 2013 [facility] [address] [id number] [address] [place] [address], [place] [id number] 03 Sep, 2013 [facility] [address] [id number] [address] [place] [address], [place] [id number] Feb, 2013 [facility] [address] [id number] [address] [place] [address], [place] [address] Jan, [facility] [address] [id number] [address] [place] [address], [place] [id number] Jan, [facility] [address] [id number] [address] [place] [address], [place] [address] Dec, [facility] [address] [id number] [address] [place] [address], [place] [id number] Dec, [facility] [address] [id number] [address] [place] [address], [place] [address] Dec, [facility] [address] [id number] [address] [place] [address], [place] [id number] Dec, [facility] [address] [id number] [address] [place] [address], [place] [id number] Dec, [facility] [address] [id number] [address] [place] [address], [place] [id number] Dec, [facility] [address] [id number] [address] [place] [address], [place] [id number] Dec, [facility] [address] [id number] [address] [place] [address], [place] [id number] Dec, [facility] [address] [id number] [address] [place] [address], [place] [address] Dec, [facility] [address] [id number] [address] [place] [address], [place] [id number] Dec, [facility] [address] [id number] [address] [place] [address], [place] [id number] Dec, [facility] [address] [id number] [address] [place] [address], [place] [id number] Dec, [facility] [address] [id number] [address] [place] [address], [place] [id number] Dec, [facility] [address] [id number] [address] [place] [address], [place] [id number] Dec, [facility] [address] [id number] [address] [place] [address], [place] [id number] Dec, [facility] [address] [id number] [address] [place] [address], [place] [id number] Dec, [facility] [address] [id number] [address] [place] [address], [place] [id number] Dec, [facility] [address] [id number] [address] [place] [address], [place] [id number] Dec, [facility] [address] [id number] [address] [place] [address], [place] [id number] Dec, [facility] [address] [id number] [address] [place] [address], [place] [id number] Nov, [facility] [address] [id number] [address] [place] [address], [place] [id number] Nov, [facility] [address] [id number] [address] [place] [address], [place] [address] Nov, [facility] [address] [id number] [address] [place] [address], [place] [address] Nov, [facility] [address] [id number] [address] [place] [address], [place] [address] Nov, [facility] [address] [id number] [address] [place] [address], [place] [address] Nov, [facility] [address] [id number] [address] [place] [address], [place] [address] Nov, [facility] [address] [id number] [address] [place] [address], [place] [address] Nov, [facility] [address] [id number] [address] [place] [address], [place] [address] Nov, [facility] [address] [id number] [address] [place] [address], [place] [address] October, [facility] [address] [id number] [address] [place] [address], [place] [address] October, [facility] [address] [id number] [address] [place] [address], [place] [address] October, [facility] [address] [id number] [address] [place] [address], [place] [address] October, [facility] [address] [id number] [address] [place] [address], [place] [address] October, [facility] [address] [id number] [address] [place] [address], [place] [address] October, [facility] [address] [id number] [address] [place] [address], [place] [address] October, [facility] [address] [id number] [address] [place] [address], [place] [address] October, [facility] [address] [id number] [address] [place] [address], [place] [address] Sep, [facility] [address] [id number] [address] [place] [address], [place] [address] Sep, [facility] [place] [address] [id number] [address] [place] [address], [place] [address] Sep, [facility] [place] [address] [id number] [address] [place] [address], [place] [address] Sep, [facility] [address] [id number] [address] [place] [address], [place] [address] Sep, [facility] [address] [id number] [address] [place] [address], [place] [address] Sep, [facility] [address] [id number] [address] [place] [address], [place] [address] Sep, [facility] [address] [id number] [address] [place] [address], [place] [address] Aug, [facility] [address] [id number] [address] [place] [address], [place] [address] Aug, [facility] [address] [id number] [address] [place] [address], [place] [address] Aug, [facility] [address] [id number] [address] [place] [address], [place] [address] Aug, [facility] [address] [id number] [address] [place] [address], [place] [address] Aug, [facility] [address] [id number] [address] [place] [address], [place] [address] Aug, [facility] [address] [id number] [address] [place] [address], [place] [address] Jul, [facility] [address] [id number] [address] [place] [address], [place] [address] Jul, [facility] [address] [id number] [address] [place] [address], [place] [address] Jul, [facility] [address] [id number] [address] [place] [address], [place] [address] Jul, [facility] [address] [id number] [address] [place] [address], [place] [address] Jul, [facility] [address] [id number] [address] [place] [address], [place] [address] Jul, [facility] [address] [id number] [address] [place] [address], [place] [address] Jun, [facility] [address] [id number] [address] [place] [address], [place] [address] Jun, [facility] [address] [id number] [address] [place] [address], [place] [address] Jun, [facility] [address] [id number] [address] [place] [address], [place] [address] Jun, [facility] [address] [id number] [address] [place] [address], [place] [address] Jun, [facility] [address] [id number] [address] [place] [address], [place] [address] Jun, [facility] [address] [id number] [address] [place] [address], [place] [address] Jun, [facility] [address] [id number] [address] [place] [address], [place] [address] Jun, [facility] [place] [address] [id number] [address] [place] [address], [place] [address] Jun, [facility] [address] [id number] [address] [place] [address], [place] [address] Jun, [facility] [place] [address] [id number] [address] [place] [address], [place] [address] Jun, [facility] [address] [id number] [address] [place] [address], [place] [address] Jun, [facility] [place] [address] [id number] [address] [place] [address], [place] [address] Jun, [facility] [address] [id number] [address] [place] [address], [place] [address] May, [facility] [address] [id number] [address] [place] [address], [place] [address] May, [facility] [address] [id number] [address] [place] [address], [place] [address] May, [facility] [address] [id number] [address] [place] [address], [place] [address] May, [facility] [address] [id number] [address] [place] [address], [place] [address] May, [facility] [address] [id number] [address] [place] [address], [place] [address] May, [facility] [address] [id number] [address] [place] [address], [place] [address] May, [facility] [address] [id number] [address] [place] [address], [place] [address] May, [facility] [address] [id number] [address] [place] [address], [place] [address] May, [facility] [address] [id number] [address] [place] [address], [place] [address] May, [facility] [address] [id number] [address] [place] [address], [place] [address] May, [facility] [address] [id number] [address] [place] [address], [place] [address] May, [facility] [address] [id number] [address] [place] [address], [place] [address] May, [facility] [address] [id number] [address] [place] [address], [place] [address] May, [facility] [address] [id number] [address] [place] [address], [place] [address] May, [facility] [address] [id number] [address] [place] [address], [place] [address] May, [facility] [address] [id number] [address] [place] [address], [place] [address] May, [facility] [address] [id number] [address] [place] [address], [place] [address] May, [facility] [address] [id number] [address] [place] [address], [place] [address] May, [facility] [address] [id number] [address] [place] [address], [place] [address] May, [facility] [address] [id number] [address] [place] [address], [place] [address] May, [facility] [address] [id number] [address] [place] [address], [place] [address] Apr, [facility] [address] [id number] [address] [place] [address], [place] [address] Apr, [facility] [address] [id number] [address] [place] [address], [place] [address] Apr, [facility] [address] [id number] [address] [place] [address], [place] [address] Apr, [facility] [address] [id number] [address] [place] [address], [place] [address] 08 Mar, 2013 [facility] [address] [id number] [address] [place] [address], [place] [address] 23 Feb, 2012 [facility] [address] [id number] [address] [place] [address], [place] [address] 16 Feb, 2012 [facility] [address] [id number] [address] [place] [address], [place] [address] 13 Feb, 2012 [facility] [address] [id number] [address] [place] [address], [place] [address] 10 Feb, 2012 [facility] [address] [id number] [address] [place] [address], [place] [address] 09 Feb, 2013 [facility] [address] [id number] [address] [place] [address], [place] [address] 09 Feb, 2013 [facility] [place] [address] [id number] [address] [place] [address], [place] [address] Jan, [facility] [address] [id number] [address] [place] [address], [place] [address] Jan, [facility] [place] [address] [id number] [address] [place] [address], [place] [address] Jan, [facility] [address] [id number] [address] [place] [address], [place] [address] Dec, [facility] [place] [address] [id number] [address] [place] [address], [place] [address] Dec, [facility] [place] [address] [id number] [address] [place] [address], [place] [address] Dec, [facility] [address] [id number] [address] [place] [address], [place] [address] 15 Dec, 2012 [facility] [address] [id number] [address] [place] [address], [place] [address] Dec, [facility] [address] [id number] [address] [place] [address], [place] [address] Nov, [facility] [address] [id number] [address] [place] [address], [place] [address] Nov, [facility] [address] [id number] [address] [place] [address], [place] [address] Nov, [facility] [address] [id number] [address] [place] [address], [place] [address] 13 Nov, 2012 [facility] [address] [id number] [address] [place] [address], [place] [address] Nov, [facility] [address] [id number] [address] [place] [address], [place] [address] 08 Nov, 2012 [facility] [address] [id number] [address] [place] [address], [place] [address] 07 Nov, 2012 [facility] [address] [id number] [address] [place] [address], [place] [address] 06 Nov, 2012 [facility] [address] [id number] [address] [place] [address], [place] [address] 05 Nov, 2012 [facility] [address] [id number] [address] [place] [address], [place] [address] Nov, [facility] [address] [id number] [address] [place] [address], [place] [address] October, [facility] [address] [id number] [address] [place] [address], [place] [address] October, [facility] [address] [id number] [address] [place] [address], [place] [address] Sep, [facility] [address] [id number] [address] [place] [address], [place] [address] Sep, [facility] [address] [id number] [address] [place] [address], [place] [address] Sep, [facility] [address] [id number] [address] [place] [address], [place] [address] 06 Sep, 2012 [facility] [address] [id number] [address] [place] [address] 05 Sep, 2012 [facility] [place] [address] [id number] [address] [place] [address], [place] [address] 05 Aug, 2012 [facility] [address] [id number] [address] [place] [address], [place] [address] Aug, [facility] [address] [id number] [address] [place] [address], [place] [address] Jul, [facility] [address] [id number] [address] [place] [address], [place] [address] Jul, [facility] [address] [id number] [address] [place] [address], [place] [address] Jun, [facility] [address] [id number] [address] [place] [address], [place] [address] Jun, [facility] [place] [address] [id number] [address] [place] [address], [place] [address] May, [facility] [place] [address] [id number] [address] [place] [address], [place] [address] May, [facility] [place] [address] [id number] [address] [place] [address], [place] [address] May, [facility] [address] [id number] [address] [place] [address], [place] [address] May, [facility] [place] [address] [id number] [address] [place] [address], [place] [address] Apr, [facility] [address] [id number] [address] [place] [address], [place] [address] Apr, [facility] [address] [id number] [address] [place] [address], [place] [address] Apr, [facility] [address] [id number] [address] [place] [address], [place] [address] Apr, [facility] [address] [id number] [address] [place] [address], [place] [address] Apr, [facility] [address] [id number] [address] [place] [address], [place] [address] 14 Apr, 2012 [facility] [address] [id number] [address] [place] [address], [place] [address] 14 Apr, 2012 [facility] [address] [id number] [address] [place] [address], [place] [address] Apr, [facility] [address] [id number] [address] [place] [address], [place] [address] Apr, [facility] [address] [id number] [address] [place] [address], [place] [address] Mar, [facility] [address] [id number] [address] [place] [address], [place] [address] Mar, [facility] [address] [id number] [address] [place] [address], [place] [address] Feb, [facility] [address] [id number] [address] [place] [address], [place] [address] Jan, [facility] [address] [id number] [address] [place] [address], [place] [address] Jan, [facility] [address] [id number] [address] [place] [address], [place] [address] Dec, [facility] [address] [id number] [address] [place] [address], [place] [address] Nov, [facility] [address] [id number] [address] [place] [address], [place] [address] Nov, [facility] [address] [id number] [address] [place] [address], [place] [address] October, [facility] [address] [id number] [address] [place] [address], [place] [address] October, [facility] [address] [id number] [address] [place] [address], [place] [address] Sep, [facility] [address] [id number] [address] [place] [address], [place] [address] Sep, [facility] [address] [id number] [address] [place] [address] May, [facility] [address] [id number] [address] [place] [address] Apr, [facility] [address] [id number] [address] [place] [address] Apr, [facility] [address] [id number] [address] [place] [address] Apr, [facility] [address] [id number] [address] [place] [address] Apr, [facility] [address] [id number] [address] [place] [address] Apr, [facility] [address] [id number] [address] [place] [address] Apr, [facility] [address] [id number] [address] [place] [address] Apr, [facility] [address] [id number] [address] [place] [address] Apr, [facility] [address] [id number] [address] [place] [address] Mar, [facility] [address] [id number] [address] [place] [phone] Mar, [facility] [address] [id number] [address] [place] [id number] Mar, [facility] [address] [id number] [address] [place] [phone] Mar, [facility] [address] [id number] [address] [place] [phone] Mar, [facility] [address] [id number] [address] [place] [id number] Mar, IMMUNIZATIONS No Known Immunizations SOCIAL HISTORY [...] surgeryx3 Hospitalization History Mental floor at [facility]
--- OUTSIDE RECORDS SUMMARY | 2019-12-24 19:59 | XMS REPORT ---
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 Name Role Phone AIRAM Christianson Unavailable PROBLEMS Type Condition ICD9-CM Code BLW23-JO Code Onset Dates Condition S tatus SNOMED Code Problem Nondependent 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 Ac tive 068063997 Problem Other chronic pain G89.29 Active 1 11569094 Problem Unspecified epilepsy without mention of intractable ep ilepsy G40.909 Active 50793221 Problem Hyperlipidemia, unspecified E78.5 Ac tive 35581239 Problem Hypertension I10 Active 7285448 3 Problem Esophageal reflux K21.9 Active 23 7744247 Problem Rheumatoid arthritis M06.9 Active 85284651 Problem Cough R05 Active 26047537 Problem Acquired hypothyroidism E03.9 Active 052624063 Problem Unspecified open-angle glaucoma, stage unspecified H40.10X0 Feb, Active 09404262 Problem Presbyopia H52.4 Active 97398690 Problem Insomnia G47.00 Active 005075193 Problem Arthralgia M25.50 Active 42741416 Problem Thyroid nodule E04.1 Active 70622 5005 Problem Anxiety disorder, unspecified F41.9 Active 716974410 Problem Chronic tension-type headache, intractable G44.221 Active 641044039 Problem Neuropathy G62.9 Active 570142437 Problem Goiter E04.9 Active 5967847 Problem Multinodular goiter E04.2 Active 585522326 Problem Carpal tunnel syndrome of left wrist G56.02 Active 811315742470183 Problem Chronic obstructive pulmonary disease, unspecified COPD ty pe J44.9 Active 77277760 Problem BMI 40.0-44.9, adult Z68.41 Active 981317780 Problem Seasonal allergic rhinitis due to pollen J30.1 Active 92499982 Problem Depression F32.9 Active 63599254 Problem Essential hypertension I10 Active 02113464 Problem Depressive disorder F32.9 Active 83847416 Problem Right-sided low back pain without sciatica M54.5 Active 317381123 Problem Reactive airway disease with out complication, unspecified asthma severity, unspecified whether persistent J45.909 Active 482271717399 Problem Urge incontinence of urine N39.41 Act chen 14720325 Problem Abnormal laboratory test R89.9 Activ e 863848790 Problem COPD with exacerbation J44.1 Active 268004999 ALLERGIES No Information ENCOUNTERS Encounter Location Date Diagnosis [place] [address] [address] October, Acquired hypothyroidism E03. 9 [place] [address] [address] October, Acute gastritis without hemo rrhage, unspecified gastritis type K29.00 ; Epigastric pain R10.13 ; Essential hypertension I10 ; Screening for colon cancer Z12.11 and BMI 40.0-44.9, adult Z68.41 [place] [address] [address] October, [facility] [place] [address] [address] October, Chest pain R07.9 and Morbid obesity E66.01 [facility] [place] [address] [address] Sep, Generalized abdominal pain R 10.84 ; Morbid obesity E66.01 ; Non-intractable vomiting with nausea, unspecified vomiting type R11.2 and Seasonal allergic rhinitis due to pollen J30.1 [facility] [place] [address] [address] [place] [id number] [place] [address] Jul, COPD with exacerbation J44.1 ; Viral upper respiratory tract infection J06.9 and Morbid obesity E66.01 [facility] [address] [place] [id number] [place] [address] Jun, Viral upper respiratory trac t infection J06.9 [place] [address] [address] [place] [address] [place] [address] Apr, Abnormal laboratory test R89 .9 [facility] [address] [place] [id number] [place] [address] Apr, Abnormal laboratory test R89 .9 [facility] [address] [place] [id number] [place] [address] Apr, Abnormal laboratory test R89 .9 [facility] [address] [place] [id number] [place] [address] Apr, [place] [address] [address] Apr, [place] [address] [address] Apr, Nonintractable episodic head ache, unspecified headache type R51 ; Urge incontinence of urine N39.41 ; BMI 40.0-44.9, adult Z68.41 ; Myalgia M79.10 and Acute cystitis without hematuria N30.00 [facility] [address] [place] [id number] [place] [address] Mar, Nasal congestion R09.81 ; Lo w back pain M54.5 ; Reactive airway disease without complication, unspecified asthma severity, unspecified whether persistent J45.909 ; Other chronic pain G89.29 ; Acute cystitis with hematuria N30.01 and BMI 40.0-44.9, adult Z68.41 [facility] [address] [place] [id number] [place] [address] Mar, Acute cystitis with hematuri a N30.01 [facility] [address] [place] [id number] [place] [address] Mar, BMI 40.0-44.9, adult Z68.41 ; Acute cystitis with hematuria N30.01 ; Acute bilateral low back pain without sciatica M54.5 and Nausea R11.0 [facility] [address] [address] Mar, Hypertension I10 ; Acquired hypothyroidism E03.9 ; Esophageal reflux K21.9 ; Chronic obstructive pulmonary disease, unspecified COPD type J44.9 and BMI 40.0-44.9, adult Z68.41 [place] [address] [address] Mar, Hypertension I10 [place] [address] [address] Nov, Hyperlipidemia, unspecified E78.5 [place] [address] [address] October, Chest pain, unspecified type R07.9 and Acquired hypothyroidism E03.9 [place] [address] [address] October, Chest pain, unspecified type R07.9 ; Family history of coronary artery disease Z82.49 ; Carpal tunnel syndrome of left wrist G56.02 ; Hypertension I10 ; Esophageal reflux K21.9 ; Arthralgia M25.50 ; Acquired hypothyroidism E03.9 ; Cough R05 ; Nausea R11.0 ; Weight gain R63.5 and BMI 45.0-49.9, adult Z68.42 [place] [address] [address] Jun, Acquired hypothyroidism E03. 9 and Cough R05 [place] [address] [address] May, [place] [address] [address] Feb, Tarsal tunnel syndrome of timi th lower extremities G57.53 and Neuropathy G62.9 [place] [address] [address] [place] [id number] [place] [address] Dec, Pleuritis R09.1 [place] [address] [address] Nov, [place] [address] [id number] [address] [place] [address] October, Arthralgia, unspecified join t M25.50 and Allergy, initial encounter T78.40XA [place] [address] [address] [facility] [id number] [address] [place] [address] October, [place] [address] [address] [facility] [id number] [address] [place] [address] October, Acute recurrent maxillary si nusitis J01.01 and Arthralgia M25.50 [place] [address] [address] [place] [id number] [place] [address] Sep, Pharyngitis due to other org anism J02.8 [place] [address] [address] [place] [id number] [place] [address] Aug, Acute nasopharyngitis J00 [place] [address] [address] [place] [id number] [place] [address] Aug, Multinodular goiter E04.2 [place] [address] [address] [place] [id number] [place] [address] Aug, Thyroid nodule E04.1 [place] [address] [address] [place] [id number] [place] [address] 17 Jul, 2016 Tarsal tunnel syndrome of timi th lower extremities G57.53 [place] [address] [address] [place] [id number] [place] [address] Jun, Pneumonia due to infectious organism, unspecified laterality, unspecified part of lung J18.9 [place] [address] [address] [place] [id number] [place] [address] Jun, Bronchospasm with bronchitis , acute J20.9 [place] [address] [address] [facility] [id number] [address] [place] [address] May, Acute non-recurrent frontal sinusitis J01.10 [place] [address] [address] [place] [id number] [place] [address] May, Flat foot [pes planus] (acqu ired), left foot M21.42 ; Flat foot [pes planus] (acquired), right foot M21.41 and Neuropathy G62.9 [place] [address] [address] [place] [id number] [place] [address] Apr, Chronic tension-type headach e, intractable G44.221 ; Right lower quadrant abdominal pain R10.31 ; Cervicalgia M54.2 ; Acute gastritis without hemorrhage, unspecified gastritis type K29.00 and Hypertension I10 [place] [address] [address] Mar, Depression F32.9 and Anxiety disorder, unspecified F41.9 [place] [address] [address] Feb, Depressive disorder F32.9 an d Anxiety disorder, unspecified F41.9 [place] [address] [address] Jan, Dysuria R30.0 ; Lower abdomi nal pain R10.30 ; Acute bilateral low back pain without sciatica M54.5 ; Nausea and vomiting, unspecified intactability, vomiting of unspecified type R11.2 ; Pain in right foot M79.671 and Pain of left foot M79.672 [place] [address] [address] Dec, Urinary tract infection, sit e not specified N39.0 [place] [address] [address] Dec, [place] [address] [address] Nov, [place] [address] [address] Nov, Dysuria R30.0 [place] [address] [address] Nov, Dysuria R30.0 and Acute cyst itis with hematuria N30.01 [place] [address] [address] October, Nausea R11.0 [facility] [address] [place] [id number] [place] [address] October, Thyroid nodule E04.1 ; Carpa l tunnel syndrome, left upper limb G56.02 ; Carpal tunnel syndrome, right upper limb G56.01 and Constipation, unspecified constipation type K59.00 [place] [address] [address] October, [place] [address] [address] October, Thyroid nodule E04.1 [place] [address] [address] October, Cold thyroid nodule E04.1 [place] [address] [address] October, [place] [address] [address] Sep, Thyroid nodule E04.1 [place] [address] [address] Sep, Thyroid nodule E04.1 [place] [address] [address] Sep, Thyroid nodule E04.1 ; Hyper tension I10 ; Esophageal reflux K21.9 and Hyperlipidemia, unspecified E78.5 [place] [address] [address] Aug, Other chronic pain G89.29 ; Sinusitis J32.9 and Hypertension I10 [place] [address] [address] Jul, [facility] [address] [facility] [id number] [address] [place] [address] 15 Jul, 2015 [facility] [address] [facility] [id number] [address] [place] [address] Jul, Insomnia G47.00 and Arthralg ia M25.50 [facility] [address] [facility] [id number] [address] [place] [address] Jul, Depressive disorder F32.9 an d Anxiety disorder, unspecified F41.9 [facility] [address] [facility] [id number] [address] [place] [address] May, Right-sided low back pain wi thout sciatica M54.5 and Depression F32.9 [place] [address] [place] [id number] [place] [address] Apr, Hematuria R31.9 [place] [address] [address] [place] [id number] [place] [address] Mar, Other chronic pain G89.29 [facility] [address] [place] [id number] [place] [address] Mar, Other chronic pain G89.29 [facility] [address] [place] [id number] [place] [address] Feb, [facility] [address] [facility] [id number] [address] [place] [address] Feb, Other chronic pain 338.29 ; Dysuria 788.1 ; UTI (urinary tract infection) 599.0 ; Insomnia 780.52 ; Hot flashes 627.2 and Hypertension 401.9 [facility] [address] [facility] [id number] [address] [place] [address] 14 Feb, 2015 Dysuria 788.1 [facility] [address] [place] [id number] [place] [address] 02 Feb, 2015 [facility] [address] [place] [id number] [place] [address] Jan, [facility] [address] [id number] [address] [place] [address] Jan, [facility] [address] [id number] [address] [place] [address] Jan, Fibromyalgia 729.1 ; Hyperte nsion 401.9 ; Dysthymia 300.4 and Hot flashes 627.2 [facility] [address] [id number] [address] [place] [address] Dec, [facility] [address] [id number] [address] [place] [address] Dec, [facility] [address] [id number] [address] [place] [address] Dec, [facility] [address] [id number] [address] [place] [address] Nov, Other chronic pain 338.29 [facility] [address] [id number] [address] [place] [address] October, [facility] [address] [id number] [address] [place] [address] October, [facility] [address] [id number] [address] [place] [address] Sep, [facility] [address] [id number] [address] [place] [address] Sep, [facility] [address] [id number] [address] [place] [address] Aug, [facility] [address] [id number] [address] [place] [address] Aug, [facility] [address] [id number] [address] [place] [address] Aug, [facility] [address] [id number] [address] [place] [address] Aug, [facility] [address] [id number] [address] [place] [address], [place] [address] Aug, [facility] [address] [id number] [address] [place] [address], [place] [address] Aug, [facility] [place] [facility] [address] [id number] [address] [place] [address], [place] [address] Aug, [facility] [address] [id number] [address] [place] [address], [place] [address] Aug, 2014 [facility] [address] [id number] [address] [place] [address], [place] [address] Aug, [facility] [address] [id number] [address] [place] [address], [place] [address] Aug, [facility] [address] [id number] [address] [place] [address], [place] [address] Aug, [facility] [address] [id number] [address] [place] [address], [place] [address] Aug, [facility] [address] [id number] [address] [place] [address], [place] [address] Aug, [facility] [address] [id number] [address] [place] [address], [place] [address] Aug, [facility] [address] [id number] [address] [place] [address], [place] [address] Jul, 2014 [facility] [place] [facility] [address] [id number] [address] [place] [address], [place] [address] Jul, 2014 [facility] [address] [id number] [address] [place] [address], [place] [address] Jul, 2014 [facility] [place] [facility] [address] [id number] [address] [place] [address], [place] [address] Jul, 2014 [facility] [place] [facility] [address] [id number] [address] [place] [address], [place] [address] Jul, 2014 [facility] [place] [facility] [address] [id number] [address] [place] [address], [place] [address] Jul, [facility] [address] [id number] [address] [place] [address], [place] [address] Jun, [facility] [address] [id number] [address] [place] [address], [place] [address] Jun, [facility] [address] [id number] [address] [place] [address], [place] [address] 15 Jun, 2014 [facility] [address] [id number] [address] [place] [address], [place] [address] Jun, [facility] [address] [id number] [address] [place] [address], [place] [address] May, [facility] [address] [id number] [address] [place] [address], [place] [address] May, [facility] [address] [id number] [address] [place] [address], [place] [address] May, [facility] [address] [id number] [address] [place] [address], [place] [address] May, [facility] [address] [id number] [address] [place] [address], [place] [address] May, [facility] [address] [id number] [address] [place] [address], [place] [address] May, [facility] [address] [id number] [address] [place] [address], [place] [address] May, [facility] [place] [facility] [address] [id number] [address] [place] [address], [place] [address] May, [facility] [place] [facility] [address] [id number] [address] [place] [address], [place] [address] May, [facility] [place] [facility] [address] [id number] [address] [place] [address], [place] [address] May, [facility] [place] [facility] [address] [id number] [address] [place] [address], [place] [address] Apr, [facility] [place] [facility] [address] [id number] [address] [place] [address], [place] [address] Apr, [facility] [place] [facility] [address] [id number] [address] [place] [address], [place] [address] Apr, [facility] [place] [facility] [address] [id number] [address] [place] [address], [place] [address] Apr, [facility] [place] [facility] [address] [id number] [address] [place] [address], [place] [address] Apr, [facility] [place] [facility] [address] [id number] [address] [place] [address], [place] [address] Apr, [facility] [place] [facility] [address] [id number] [address] [place] [address], [place] [address] Apr, [facility] [place] [facility] [address] [id number] [address] [place] [address], [place] [address] Apr, [facility] [place] [facility] [address] [id number] [address] [place] [address], [place] [address] Apr, [facility] [place] [facility] [address] [id number] [address] [place] [address], [place] [address] Mar, [facility] [place] [facility] [address] [id number] [address] [place] [address], [place] [address] Mar, [facility] [place] [facility] [address] [id number] [address] [place] [address], [place] [address] Mar, [facility] [place] [facility] [address] [id number] [address] [place] [address], [place] [address] Mar, [facility] [place] [facility] [address] [id number] [address] [place] [address], [place] [address] Mar, [facility] [place] [facility] [address] [id number] [address] [place] [address], [place] [address] Mar, [facility] [place] [facility] [address] [id number] [address] [place] [address], [place] [address] Mar, [facility] [place] [facility] [address] [id number] [address] [place] [address], [place] [address] Mar, [facility] [place] [facility] [address] [id number] [facility] [place] [address] 30 Sep, 2013 [facility] [address] [id number] [facility] [place] [address] 30 Sep, 2013 [facility] [place] [facility] [address] [id number] [address] [place] [address], [place] [address] 24 Feb, 2013 [facility] [place] [facility] [address] [id number] [address] [place] [address], [place] [address] 24 Feb, 2013 [facility] [address] [id number] [address] [place] [address], [place] [address] 22 Feb, 2013 [facility] [address] [id number] [address] [place] [address], [place] [address] 22 Feb, 2013 [facility] [address] [id number] [address] [place] [address], [place] [address] 10 Feb, 2013 [facility] [address] [id number] [address] [place] [address], [place] [address] 10 Feb, 2013 [facility] [address] [id number] [address] [place] [address], [place] [address] 03 Feb, 2013 [facility] [place] [facility] [address] [id number] [address] [place] [address], [place] [address] 03 Sep, 2013 [facility] [place] [facility] [address] [id number] [address] [place] [address], [place] [address] 03 Feb, 2013 [facility] [place] [facility] [address] [id number] [address] [place] [address], [place] [address] 03 Sep, 2013 [facility] [place] [facility] [address] [id number] [address] [place] [address], [place] [id number] 03 Sep, 2013 [facility] [address] [id number] [address] [place] [address], [place] [id number] Feb, 2013 [facility] [address] [id number] [address] [place] [address], [place] [id number] Jan, [facility] [address] [id number] [address] [place] [address], [place] [id number] Jan, [facility] [address] [id number] [address] [place] [address], [place] [id number] Dec, [facility] [address] [id number] [address] [place] [address], [place] [id number] Dec, [facility] [address] [id number] [address] [place] [address], [place] [id number] Dec, [facility] [address] [id number] [address] [place] [address], [place] [id number] Dec, [facility] [address] [id number] [address] [place] [address], [place] [id number] Dec, [facility] [address] [id number] [address] [place] [address], [place] [id number] Dec, [facility] [address] [id number] [address] [place] [address], [place] [id number] Dec, [facility] [address] [id number] [address] [place] [address], [place] [id number] Dec, [facility] [address] [id number] [address] [place] [address], [place] [id number] Dec, [facility] [address] [id number] [address] [place] [address], [place] [id number] Dec, [facility] [address] [id number] [address] [place] [address], [place] [id number] Dec, [facility] [address] [id number] [address] [place] [address], [place] [id number] Dec, [facility] [address] [id number] [address] [place] [address], [place] [id number] Dec, [facility] [address] [id number] [address] [place] [address], [place] [id number] Dec, [facility] [address] [id number] [address] [place] [address], [place] [id number] Dec, [facility] [address] [id number] [address] [place] [address], [place] [id number] Dec, [facility] [address] [id number] [address] [place] [address], [place] [id number] Dec, [facility] [address] [id number] [address] [place] [address], [place] [id number] Dec, [facility] [address] [id number] [address] [place] [address], [place] [id number] Dec, [facility] [address] [id number] [address] [place] [address], [place] [id number] Nov, [facility] [address] [id number] [address] [place] [address], [place] [id number] Nov, [facility] [address] [id number] [address] [place] [address], [place] [id number] Nov, [facility] [address] [id number] [address] [place] [address], [place] [id number] Nov, [facility] [address] [id number] [address] [place] [address], [place] [address] Nov, [facility] [address] [id number] [address] [place] [address], [place] [id number] Nov, [facility] [address] [id number] [address] [place] [address], [place] [id number] Nov, [facility] [address] [id number] [address] [place] [address], [place] [address] Nov, [facility] [address] [id number] [address] [place] [address], [place] [address] Nov, [facility] [address] [id number] [address] [place] [address], [place] [address] October, [facility] [address] [id number] [address] [place] [address], [place] [address] October, [facility] [address] [id number] [address] [place] [address], [place] [address] October, [facility] [address] [id number] [address] [place] [address], [place] [address] October, [facility] [address] [id number] [address] [place] [address], [place] [address] October, [facility] [address] [id number] [address] [place] [address], [place] [address] October, [facility] [address] [id number] [address] [place] [address], [place] [address] October, [facility] [address] [id number] [address] [place] [address], [place] [address] October, [facility] [address] [id number] [address] [place] [address], [place] [address] Sep, [facility] [address] [id number] [address] [place] [address], [place] [address] Sep, [facility] [address] [id number] [address] [place] [address], [place] [address] Sep, [facility] [address] [id number] [address] [place] [address], [place] [address] Sep, [facility] [address] [id number] [address] [place] [address], [place] [address] Sep, [facility] [address] [id number] [address] [place] [address], [place] [address] Sep, [facility] [address] [id number] [address] [place] [address], [place] [address] Sep, [facility] [address] [id number] [address] [place] [address], [place] [address] Aug, [facility] [address] [id number] [address] [place] [address], [place] [address] Aug, [facility] [address] [id number] [address] [place] [address], [place] [address] Aug, [facility] [address] [id number] [address] [place] [address], [place] [address] Aug, [facility] [address] [id number] [address] [place] [address], [place] [address] Aug, [facility] [address] [id number] [address] [place] [address], [place] [address] Aug, [facility] [address] [id number] [address] [place] [address], [place] [address] Jul, [facility] [address] [id number] [address] [place] [address], [place] [address] Jul, [facility] [address] [id number] [address] [place] [address], [place] [address] Jul, [facility] [address] [id number] [address] [place] [address], [place] [address] Jul, [facility] [address] [id number] [address] [place] [address], [place] [address] Jul, [facility] [address] [id number] [address] [place] [address], [place] [address] Jul, [facility] [address] [id number] [address] [place] [address], [place] [address] Jun, [facility] [address] [id number] [address] [place] [address], [place] [address] Jun, [facility] [address] [id number] [address] [place] [address], [place] [address] Jun, [facility] [address] [id number] [address] [place] [address], [place] [address] Jun, [facility] [address] [id number] [address] [place] [address], [place] [address] Jun, [facility] [address] [id number] [address] [place] [address], [place] [address] Jun, [facility] [address] [id number] [address] [place] [address], [place] [address] Jun, [facility] [address] [id number] [address] [place] [address], [place] [address] Jun, [facility] [address] [id number] [address] [place] [address], [place] [address] Jun, [facility] [address] [id number] [address] [place] [address], [place] [address] Jun, [facility] [address] [id number] [address] [place] [address], [place] [address] Jun, [facility] [address] [id number] [address] [place] [address], [place] [address] Jun, [facility] [address] [id number] [address] [place] [address], [place] [address] Jun, [facility] [address] [id number] [address] [place] [address], [place] [address] May, [facility] [address] [id number] [address] [place] [address], [place] [address] May, [facility] [address] [id number] [address] [place] [address], [place] [address] May, [facility] [address] [id number] [address] [place] [address], [place] [address] May, [facility] [address] [id number] [address] [place] [address], [place] [address] May, [facility] [address] [id number] [address] [place] [address], [place] [address] May, [facility] [address] [id number] [address] [place] [address], [place] [address] May, [facility] [address] [id number] [address] [place] [address], [place] [address] May, [facility] [address] [id number] [address] [place] [address], [place] [address] May, [facility] [address] [id number] [address] [place] [address], [place] [address] May, [facility] [address] [id number] [address] [place] [address], [place] [address] May, [facility] [address] [id number] [address] [place] [address], [place] [address] May, [facility] [address] [id number] [address] [place] [address], [place] [address] May, [facility] [address] [id number] [address] [place] [address], [place] [address] May, [facility] [address] [id number] [address] [place] [address], [place] [address] May, [facility] [address] [id number] [address] [place] [address], [place] [address] May, [facility] [address] [id number] [address] [place] [address], [place] [address] May, [facility] [address] [id number] [address] [place] [address], [place] [address] May, [facility] [address] [id number] [address] [place] [address], [place] [address] May, [facility] [address] [id number] [address] [place] [address], [place] [address] May, [facility] [address] [id number] [address] [place] [address], [place] [address] May, [facility] [address] [id number] [address] [place] [address], [place] [address] Apr, [facility] [address] [id number] [address] [place] [address], [place] [address] Apr, [facility] [address] [id number] [address] [place] [address], [place] [address] Apr, [facility] [address] [id number] [address] [place] [address], [place] [address] Apr, [facility] [address] [id number] [address] [place] [address], [place] [address] 08 Mar, 2013 [facility] [address] [id number] [address] [place] [address], [place] [address] 23 Feb, 2012 [facility] [address] [id number] [address] [place] [address], [place] [address] 16 Feb, 2012 [facility] [address] [id number] [address] [place] [address], [place] [address] 13 Feb, 2012 [facility] [address] [id number] [address] [place] [address], [place] [address] 10 Feb, 2012 [facility] [address] [id number] [address] [place] [address], [place] [address] 09 Feb, 2013 [facility] [address] [id number] [address] [place] [address], [place] [address] 09 Feb, 2013 [facility] [address] [id number] [address] [place] [address], [place] [address] Jan, [facility] [address] [id number] [address] [place] [address], [place] [address] Jan, [facility] [address] [id number] [address] [place] [address], [place] [address] Jan, [facility] [address] [id number] [address] [place] [address], [place] [address] Dec, [facility] [address] [id number] [address] [place] [address], [place] [address] Dec, [facility] [address] [id number] [address] [place] [address], [place] [address] Dec, [facility] [address] [id number] [address] [place] [address], [place] [address] 15 Dec, 2012 [facility] [address] [id number] [address] [place] [address], [place] [address] Dec, [facility] [address] [id number] [address] [place] [address], [place] [address] Nov, [facility] [address] [id number] [address] [place] [address], [place] [address] Nov, [facility] [address] [id number] [address] [place] [address], [place] [address] Nov, [facility] [address] [id number] [address] [place] [address], [place] [address] 13 Nov, 2012 [facility] [address] [id number] [address] [place] [address], [place] [address] Nov, [facility] [address] [id number] [address] [place] [address], [place] [address] 08 Nov, 2012 [facility] [address] [id number] [address] [place] [address], [place] [address] 07 Nov, 2012 [facility] [address] [id number] [address] [place] [address], [place] [address] 06 Nov, 2012 [facility] [address] [id number] [address] [place] [address], [place] [address] 05 Nov, 2012 [facility] [address] [id number] [address] [place] [address], [place] [address] Nov, [facility] [address] [id number] [address] [place] [address], [place] [address] October, [facility] [address] [id number] [address] [place] [address], [place] [address] October, [facility] [address] [id number] [address] [place] [address], [place] [address] Sep, [facility] [address] [id number] [address] [place] [address], [place] [address] Sep, [facility] [address] [id number] [address] [place] [address], [place] [address] Sep, [facility] [address] [id number] [address] [place] [address], [place] [address] 06 Sep, 2012 [facility] [address] [id number] [address] [place] [address] 05 Sep, 2012 [facility] [address] [id number] [address] [place] [address], [place] [address] 05 Aug, 2012 [facility] [address] [id number] [address] [place] [address], [place] [address] Aug, [facility] [address] [id number] [address] [place] [address], [place] [address] Jul, [facility] [address] [id number] [address] [place] [address], [place] [address] Jul, [facility] [address] [id number] [address] [place] [address], [place] [address] Jun, [facility] [address] [id number] [address] [place] [address], [place] [address] Jun, [facility] [address] [id number] [address] [place] [address], [place] [address] May, [facility] [address] [id number] [address] [place] [address], [place] [address] May, [facility] [address] [id number] [address] [place] [address], [place] [address] May, [facility] [address] [id number] [address] [place] [address], [place] [address] May, [facility] [address] [id number] [address] [place] [address], [place] [address] Apr, [facility] [address] [id number] [address] [place] [address], [place] [address] Apr, [facility] [address] [id number] [address] [place] [address], [place] [address] Apr, [facility] [address] [id number] [address] [place] [address], [place] [address] Apr, [facility] [address] [id number] [address] [place] [address], [place] [address] Apr, [facility] [address] [id number] [address] [place] [address], [place] [address] 14 Apr, 2012 [facility] [address] [id number] [address] [place] [address], [place] [address] 14 Apr, 2012 [facility] [address] [id number] [address] [place] [address], [place] [address] Apr, [facility] [address] [id number] [address] [place] [address], [place] [address] Apr, [facility] [address] [id number] [address] [place] [address], [place] [address] Mar, [facility] [address] [id number] [address] [place] [address], [place] [address] Mar, [facility] [address] [id number] [address] [place] [address], [place] [address] Feb, [facility] [address] [id number] [address] [place] [address], [place] [address] Jan, [facility] [address] [id number] [address] [place] [address], [place] [address] Jan, [facility] [address] [id number] [address] [place] [address], [place] [address] Dec, [facility] [address] [id number] [address] [place] [address], [place] [address] Nov, [facility] [address] [id number] [address] [place] [address], [place] [address] Nov, [facility] [address] [id number] [address] [place] [address], [place] [address] October, [facility] [address] [id number] [address] [place] [address], [place] [address] October, [facility] [address] [id number] [address] [place] [address], [place] [address] Sep, [facility] [address] [id number] [address] [place] [address], [place] [address] Sep, [facility] [address] [id number] [address] [place] [address] May, [facility] [address] [id number] [address] [place] [address] Apr, [facility] [address] [id number] [address] [place] [address] Apr, [facility] [address] [id number] [address] [place] [address] Apr, [facility] [address] [id number] [address] [place] [address] Apr, [facility] [address] [id number] [address] [place] [address] Apr, [facility] [address] [id number] [address] [place] [address] Apr, [facility] [address] [id number] [address] [place] [address] Apr, [facility] [address] [id number] [address] [place] [address] Apr, [facility] [address] [id number] [address] [place] [address] Mar, [facility] [address] [id number] [address] [place] [address] Mar, [facility] [address] [id number] [address] [place] [address] Mar, [facility] [address] [id number] [address] [place] [address] Mar, [facility] [address] [id number] [address] [place] [id number] Mar, [facility] [address] [id number] [address] [place] [id number] Mar, IMMUNIZATIONS No Known Immunizations SOCIAL HISTORY [...] Stomach surgeryx3 Hospitalization History Mental floor at [facility]
--- OUTSIDE RECORDS SUMMARY | 2019-12-24 19:59 | XMS REPORT ---
Author Author Trey Christianson Organization [facility] Address [address] [place] [address] Care Team Providers Care Grocery Deliverer Name Role Phone AIRAM Christianson Unavailable PROBLEMS Type Condition ICD9-CM Code APK58-QT Code Onset Dates Condition S tatus SNOMED Code Problem Nondependent 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 Ac tive 127486632 Problem Other chronic pain G89.29 Active 1 40258814 Problem Unspecified epilepsy without mention of intractable ep ilepsy G40.909 Active 60756201 Problem Hyperlipidemia, unspecified E78.5 Ac tive 95787350 Problem Hypertension I10 Active 5257844 3 Problem Esophageal reflux K21.9 Active 23 2468650 Problem Rheumatoid arthritis M06.9 Active 63503032 Problem Cough R05 Active 59362072 Problem Acquired hypothyroidism E03.9 Active 578228495 Problem Unspecified open-angle glaucoma, stage unspecified H40.10X0 Feb, Active 54509287 Problem Presbyopia H52.4 Active 34736777 Problem Insomnia G47.00 Active 374161759 Problem Arthralgia M25.50 Active 99452024 Problem Thyroid nodule E04.1 Active 04716 5005 Problem Anxiety disorder, unspecified F41.9 Active 919684949 Problem Chronic tension-type headache, intractable G44.221 Active 376049297 Problem Neuropathy G62.9 Active 817955123 Problem Goiter E04.9 Active 7501193 Problem Multinodular goiter E04.2 Active 026283620 Problem Carpal tunnel syndrome of left wrist G56.02 Active 149199054974379 Problem Chronic obstructive pulmonary disease, unspecified COPD ty pe J44.9 Active 52404403 Problem BMI 40.0-44.9, adult Z68.41 Active 888835902 Problem Seasonal allergic rhinitis due to pollen J30.1 Active 78887461 Problem Depression F32.9 Active 80129682 Problem Essential hypertension I10 Active 81505762 Problem Depressive disorder F32.9 Active 92696212 Problem Right-sided low back pain without sciatica M54.5 Active 307198051 Problem Reactive airway disease with out complication, unspecified asthma severity, unspecified whether persistent J45.909 Active 142069889315 Problem Urge incontinence of urine N39.41 Act chen 56654717 Problem Abnormal laboratory test R89.9 Activ e 391222019 Problem COPD with exacerbation J44.1 Active 022201067 ALLERGIES No Information ENCOUNTERS Encounter Location Date Diagnosis [place] [address] [address] October, Acquired hypothyroidism E03. 9 [place] [address] [address] October, Acute gastritis without hemo rrhage, unspecified gastritis type K29.00 ; Epigastric pain R10.13 ; Essential hypertension I10 ; Screening for colon cancer Z12.11 and BMI 40.0-44.9, adult Z68.41 [place] [address] [address] October, [facility] [place] [address] [address] October, Chest pain R07.9 and Morbid obesity E66.01 [facility] [place] [address] [address] Sep, Generalized abdominal pain R 10.84 ; Morbid obesity E66.01 ; Non-intractable vomiting with nausea, unspecified vomiting type R11.2 and Seasonal allergic rhinitis due to pollen J30.1 [facility] [place] [address] [address] [place] [id number] [place] [address] Jul, COPD with exacerbation J44.1 ; Viral upper respiratory tract infection J06.9 and Morbid obesity E66.01 [facility] IN [facility] [address] [place] [id number] [address] [place] [address] Jun, Viral upper respiratory trac t infection J06.9 [place] [address] [place] [address] [place] [address] Apr, Abnormal laboratory test R89 .9 [facility] [address] [place] [id number] [place] [address] Apr, Abnormal laboratory test R89 .9 [facility] [address] [place] [id number] [address] [place] [address] Apr, Abnormal laboratory test R89 .9 [facility] [address] [place] [id number] [place] [address] Apr, [place] [address] [address] Apr, [place] [address] [address] Apr, Nonintractable episodic head ache, unspecified headache type R51 ; Urge incontinence of urine N39.41 ; BMI 40.0-44.9, adult Z68.41 ; Myalgia M79.10 and Acute cystitis without hematuria N30.00 [facility] [address] [place] [id number] [place] [address] Mar, Nasal congestion R09.81 ; Lo w back pain M54.5 ; Reactive airway disease without complication, unspecified asthma severity, unspecified whether persistent J45.909 ; Other chronic pain G89.29 ; Acute cystitis with hematuria N30.01 and BMI 40.0-44.9, adult Z68.41 [facility] [address] [place] [id number] [address] [place] [address] Mar, Acute cystitis with hematuri a N30.01 [facility] IN [facility] [address] [place] [id number] [address] [place] [address] Mar, BMI 40.0-44.9, adult Z68.41 ; Acute cystitis with hematuria N30.01 ; Acute bilateral low back pain without sciatica M54.5 and Nausea R11.0 [facility] [address] [address] Mar, Hypertension I10 ; Acquired hypothyroidism E03.9 ; Esophageal reflux K21.9 ; Chronic obstructive pulmonary disease, unspecified COPD type J44.9 and BMI 40.0-44.9, adult Z68.41 [place] [address] [address] Mar, Hypertension I10 [place] [address] [address] Nov, Hyperlipidemia, unspecified E78.5 [place] [address] [address] October, Chest pain, unspecified type R07.9 and Acquired hypothyroidism E03.9 [place] [address] [address] October, Chest pain, unspecified type R07.9 ; Family history of coronary artery disease Z82.49 ; Carpal tunnel syndrome of left wrist G56.02 ; Hypertension I10 ; Esophageal reflux K21.9 ; Arthralgia M25.50 ; Acquired hypothyroidism E03.9 ; Cough R05 ; Nausea R11.0 ; Weight gain R63.5 and BMI 45.0-49.9, adult Z68.42 [place] [address] [address] Jun, Acquired hypothyroidism E03. 9 and Cough R05 [place] [address] [address] May, [place] [address] [address] Feb, Tarsal tunnel syndrome of timi th lower extremities G57.53 and Neuropathy G62.9 [place] [address] [address] [place] [id number] [address] [place] [address] Dec, Pleuritis R09.1 [place] [address] [address] Nov, [place] [address] [id number] [address] [place] [address] October, Arthralgia, unspecified join t M25.50 and Allergy, initial encounter T78.40XA [place] [address] [address] [facility] [id number] [address] [place] [address] October, [place] [address] [address] [facility] [id number] [address] [place] [address] October, Acute recurrent maxillary si nusitis J01.01 and Arthralgia M25.50 [place] [address] [address] [place] [id number] [place] [address] Sep, Pharyngitis due to other org anism J02.8 [place] [address] [address] [place] [id number] [place] [address] Aug, Acute nasopharyngitis J00 [place] [address] [address] [place] [id number] [place] [address] Aug, Multinodular goiter E04.2 [place] [address] [address] [place] [id number] [address] [place] [address] Aug, Thyroid nodule E04.1 [place] [address] [address] [place] [id number] [address] [place] [address] 17 Jul, 2016 Tarsal tunnel syndrome of timi th lower extremities G57.53 [place] [address] [address] [place] [id number] [place] [address] Jun, Pneumonia due to infectious organism, unspecified laterality, unspecified part of lung J18.9 [place] [address] [address] [place] [id number] [address] [place] [address] Jun, Bronchospasm with bronchitis , acute J20.9 [place] [address] [address] [facility] [id number] [address] [place] [address] May, Acute non-recurrent frontal sinusitis J01.10 [place] [address] [address] [place] [id number] [address] [place] [address] May, Flat foot [pes planus] (acqu ired), left foot M21.42 ; Flat foot [pes planus] (acquired), right foot M21.41 and Neuropathy G62.9 [place] [address] [address] [place] [id number] [place] [address] Apr, Chronic tension-type headach e, intractable G44.221 ; Right lower quadrant abdominal pain R10.31 ; Cervicalgia M54.2 ; Acute gastritis without hemorrhage, unspecified gastritis type K29.00 and Hypertension I10 [place] [address] [address] Mar, Depression F32.9 and Anxiety disorder, unspecified F41.9 [place] [address] [address] Feb, Depressive disorder F32.9 an d Anxiety disorder, unspecified F41.9 [place] [address] [address] Jan, Dysuria R30.0 ; Lower abdomi nal pain R10.30 ; Acute bilateral low back pain without sciatica M54.5 ; Nausea and vomiting, unspecified intactability, vomiting of unspecified type R11.2 ; Pain in right foot M79.671 and Pain of left foot M79.672 [place] [address] [address] Dec, Urinary tract infection, sit e not specified N39.0 [place] [address] [address] Dec, [place] [address] [address] Nov, [place] [address] [address] Nov, Dysuria R30.0 [place] [address] [address] Nov, Dysuria R30.0 and Acute cyst itis with hematuria N30.01 [place] [address] [address] October, Nausea R11.0 [facility] [address] [place] [id number] [place] [address] October, Thyroid nodule E04.1 ; Carpa l tunnel syndrome, left upper limb G56.02 ; Carpal tunnel syndrome, right upper limb G56.01 and Constipation, unspecified constipation type K59.00 [place] [address] [address] October, [place] [address] [address] October, Thyroid nodule E04.1 [place] [address] [address] October, Cold thyroid nodule E04.1 [place] [address] [address] October, [place] [address] [address] Sep, Thyroid nodule E04.1 [place] [address] [address] Sep, Thyroid nodule E04.1 [place] [address] [address] Sep, Thyroid nodule E04.1 ; Hyper tension I10 ; Esophageal reflux K21.9 and Hyperlipidemia, unspecified E78.5 [place] [address] [address] Aug, Other chronic pain G89.29 ; Sinusitis J32.9 and Hypertension I10 [place] [address] [address] Jul, [facility] [address] [facility] [id number] [address] [place] [address] 15 Jul, 2015 [facility] [address] [facility] [id number] [address] [place] [address] Jul, Insomnia G47.00 and Arthralg ia M25.50 [facility] [address] [facility] [id number] [address] [place] [address] Jul, Depressive disorder F32.9 an d Anxiety disorder, unspecified F41.9 [facility] [address] [facility] [id number] [address] [place] [address] May, Right-sided low back pain wi thout sciatica M54.5 and Depression F32.9 [place] [address] [place] [id number] [address] [place] [address] Apr, Hematuria R31.9 [place] [address] [place] [id number] [address] [place] [address] Mar, Other chronic pain G89.29 [facility] [address] [place] [id number] [address] [place] [address] Mar, Other chronic pain G89.29 [facility] [address] [place] [id number] [address] [place] [address] Feb, [facility] [address] [facility] [id number] [address] [place] [address] Feb, Other chronic pain 338.29 ; Dysuria 788.1 ; UTI (urinary tract infection) 599.0 ; Insomnia 780.52 ; Hot flashes 627.2 and Hypertension 401.9 [facility] [address] [facility] [id number] [address] [place] [address] 14 Feb, 2015 Dysuria 788.1 [facility] [address] [place] [id number] [address] [place] [address] 02 Feb, 2015 [facility] [address] [place] [id number] [address] [place] [address] Jan, [facility] [address] [id number] [address] [place] [address] Jan, [facility] [address] [id number] [address] [place] [address] Jan, Fibromyalgia 729.1 ; Hyperte nsion 401.9 ; Dysthymia 300.4 and Hot flashes 627.2 [facility] [address] [id number] [address] [place] [address] Dec, [facility] [address] [id number] [address] [place] [address] Dec, [facility] [address] [id number] [address] [place] [address] Dec, [facility] [address] [id number] [address] [place] [address] Nov, Other chronic pain 338.29 [facility] [address] [id number] [address] [place] [address] October, [facility] [address] [id number] [address] [place] [address] October, [facility] [address] [id number] [address] [place] [address] Sep, [facility] [address] [id number] [address] [place] [address] Sep, [facility] [address] [id number] [address] [place] [address] Aug, [facility] [address] [id number] [address] [place] [address] Aug, [facility] [address] [id number] [address] [place] [address] Aug, [facility] [address] [id number] [address] [place] [address] Aug, [facility] [address] [id number] [address] [place] [address], [place] [address] Aug, [facility] [address] [id number] [address] [place] [address], [place] [address] Aug, [facility] [place] [facility] [address] [id number] [address] [place] [address], [place] [address] Aug, [facility] [address] [id number] [address] [place] [address], [place] [address] Aug, 2014 [facility] [address] [id number] [address] [place] [address], [place] [address] Aug, [facility] [address] [id number] [address] [place] [address], [place] [address] Aug, [facility] [address] [id number] [address] [place] [address], [place] [address] Aug, [facility] [address] [id number] [address] [place] [address], [place] [address] Aug, [facility] [address] [id number] [address] [place] [address], [place] [address] Aug, [facility] [address] [id number] [address] [place] [address], [place] [address] Aug, [facility] [address] [id number] [address] [place] [address], [place] [address] Jul, 2014 [facility] [place] [facility] [address] [id number] [address] [place] [address], [place] [address] Jul, 2014 [facility] [address] [id number] [address] [place] [address], [place] [address] Jul, 2014 [facility] [place] [facility] [address] [id number] [address] [place] [address], [place] [address] Jul, 2014 [facility] [place] [facility] [address] [id number] [address] [place] [address], [place] [address] Jul, 2014 [facility] [place] [facility] [address] [id number] [address] [place] [address], [place] [address] Jul, [facility] [address] [id number] [address] [place] [address], [place] [address] Jun, [facility] [address] [id number] [address] [place] [address], [place] [address] Jun, [facility] [address] [id number] [address] [place] [address], [place] [address] 15 Jun, 2014 [facility] [address] [id number] [address] [place] [address], [place] [address] Jun, [facility] [address] [id number] [address] [place] [address], [place] [address] May, [facility] [address] [id number] [address] [place] [address], [place] [address] May, [facility] [address] [id number] [address] [place] [address], [place] [address] May, [facility] [address] [id number] [address] [place] [address], [place] [address] May, [facility] [address] [id number] [address] [place] [address], [place] [address] May, [facility] [address] [id number] [address] [place] [address], [place] [address] May, [facility] [address] [id number] [address] [place] [address], [place] [address] May, [facility] [place] [facility] [address] [id number] [address] [place] [address], [place] [address] May, [facility] [place] [facility] [address] [id number] [address] [place] [address], [place] [address] May, [facility] [place] [facility] [address] [id number] [address] [place] [address], [place] [address] May, [facility] [place] [facility] [address] [id number] [address] [place] [address], [place] [address] Apr, [facility] [place] [facility] [address] [id number] [address] [place] [address], [place] [address] Apr, [facility] [place] [facility] [address] [id number] [address] [place] [address], [place] [address] Apr, [facility] [place] [facility] [address] [id number] [address] [place] [address], [place] [address] Apr, [facility] [place] [facility] [address] [id number] [address] [place] [address], [place] [address] Apr, [facility] [place] [facility] [address] [id number] [address] [place] [address], [place] [address] Apr, [facility] [place] [facility] [address] [id number] [address] [place] [address], [place] [address] Apr, [facility] [place] [facility] [address] [id number] [address] [place] [address], [place] [address] Apr, [facility] [place] [facility] [address] [id number] [address] [place] [address], [place] [address] Apr, [facility] [place] [facility] [address] [id number] [address] [place] [address], [place] [address] Mar, [facility] [place] [facility] [address] [id number] [address] [place] [address], [place] [address] Mar, [facility] [place] [facility] [address] [id number] [address] [place] [address], [place] [address] Mar, [facility] [place] [facility] [address] [id number] [address] [place] [address], [place] [address] Mar, [facility] [place] [facility] [address] [id number] [address] [place] [address], [place] [address] Mar, [facility] [place] [facility] [address] [id number] [address] [place] [address], [place] [address] Mar, [facility] [place] [facility] [address] [id number] [address] [place] [address], [place] [address] Mar, [facility] [place] [facility] [address] [id number] [address] [place] [address], [place] [address] Mar, [facility] [place] [facility] [address] [id number] [facility] [place] [address] 30 Sep, 2013 [facility] [address] [id number] [facility] [place] [address] 30 Sep, 2013 [facility] [place] [facility] [address] [id number] [address] [place] [address], [place] [address] 24 Feb, 2013 [facility] [place] [facility] [address] [id number] [address] [place] [address], [place] [address] 24 Feb, 2013 [facility] [address] [id number] [address] [place] [address], [place] [address] 22 Feb, 2013 [facility] [address] [id number] [address] [place] [address], [place] [address] 22 Feb, 2013 [facility] [address] [id number] [address] [place] [address], [place] [address] 10 Feb, 2013 [facility] [address] [id number] [address] [place] [address], [place] [address] 10 Feb, 2013 [facility] [address] [id number] [address] [place] [address], [place] [address] 03 Feb, 2013 [facility] [place] [facility] [address] [id number] [address] [place] [address], [place] [address] 03 Sep, 2013 [facility] [place] [facility] [address] [id number] [address] [place] [address], [place] [address] 03 Feb, 2013 [facility] [place] [facility] [address] [id number] [address] [place] [address], [place] [address] 03 Sep, 2013 [facility] [place] [facility] [address] [id number] [address] [place] [address], [place] [address] 03 Sep, 2013 [facility] [place] [facility] [address] [id number] [address] [place] [address], [place] [address] Feb, 2013 [facility] [place] [facility] [address] [id number] [address] [place] [address], [place] [address] Jan, [facility] [place] [facility] [address] [id number] [address] [place] [address], [place] [id number] Jan, [facility] [address] [id number] [address] [place] [address], [place] [id number] Dec, [facility] [address] [id number] [address] [place] [address], [place] [address] Dec, [facility] [address] [id number] [address] [place] [address], [place] [address] Dec, [facility] [address] [id number] [address] [place] [address], [place] [id number] Dec, [facility] [address] [id number] [address] [place] [address], [place] [id number] Dec, [facility] [address] [id number] [address] [place] [address], [place] [id number] Dec, [facility] [address] [id number] [address] [place] [address], [place] [address] Dec, [facility] [address] [id number] [address] [place] [address], [place] [id number] Dec, [facility] [address] [id number] [address] [place] [address], [place] [address] Dec, [facility] [address] [id number] [address] [place] [address], [place] [address] Dec, [facility] [address] [id number] [address] [place] [address], [place] [address] Dec, [facility] [address] [id number] [address] [place] [address], [place] [address] Dec, [facility] [address] [id number] [address] [place] [address], [place] [id number] Dec, [facility] [address] [id number] [address] [place] [address], [place] [id number] Dec, [facility] [address] [id number] [address] [place] [address], [place] [id number] Dec, [facility] [address] [id number] [address] [place] [address], [place] [id number] Dec, [facility] [address] [id number] [address] [place] [address], [place] [id number] Dec, [facility] [address] [id number] [address] [place] [address], [place] [id number] Dec, [facility] [address] [id number] [address] [place] [address], [place] [id number] Dec, [facility] [address] [id number] [address] [place] [address], [place] [address] Nov, [facility] [address] [id number] [address] [place] [address], [place] [address] Nov, [facility] [address] [id number] [address] [place] [address], [place] [address] Nov, [facility] [address] [id number] [address] [place] [address], [place] [address] Nov, [facility] [address] [id number] [address] [place] [address], [place] [id number] Nov, [facility] [address] [id number] [address] [place] [address], [place] [id number] Nov, [facility] [address] [id number] [address] [place] [address], [place] [address] Nov, [facility] [address] [id number] [address] [place] [address], [place] [address] Nov, [facility] [address] [id number] [address] [place] [address], [place] [address] Nov, [facility] [address] [id number] [address] [place] [address], [place] [address] October, [facility] [address] [id number] [address] [place] [address], [place] [address] October, [facility] [address] [id number] [address] [place] [address], [place] [address] October, [facility] [address] [id number] [address] [place] [address], [place] [address] October, [facility] [address] [id number] [address] [place] [address], [place] [address] October, [facility] [address] [id number] [address] [place] [address], [place] [address] October, [facility] [address] [id number] [address] [place] [address], [place] [address] October, [facility] [address] [id number] [address] [place] [address], [place] [address] October, [facility] [address] [id number] [address] [place] [address], [place] [address] Sep, [facility] [address] [id number] [address] [place] [address], [place] [address] Sep, [facility] [address] [id number] [address] [place] [address], [place] [address] Sep, [facility] [address] [id number] [address] [place] [address], [place] [address] Sep, [facility] [address] [id number] [address] [place] [address], [place] [address] Sep, [facility] [address] [id number] [address] [place] [address], [place] [address] Sep, [facility] [address] [id number] [address] [place] [address], [place] [address] Sep, [facility] [address] [id number] [address] [place] [address], [place] [address] Aug, [facility] [address] [id number] [address] [place] [address], [place] [address] Aug, [facility] [address] [id number] [address] [place] [address], [place] [address] Aug, [facility] [address] [id number] [address] [place] [address], [place] [address] Aug, [facility] [address] [id number] [address] [place] [address], [place] [address] Aug, [facility] [address] [id number] [address] [place] [address], [place] [address] Aug, [facility] [address] [id number] [address] [place] [address], [place] [address] Jul, [facility] [address] [id number] [address] [place] [address], [place] [address] Jul, [facility] [address] [id number] [address] [place] [address], [place] [address] Jul, [facility] [address] [id number] [address] [place] [address], [place] [address] Jul, [facility] [address] [id number] [address] [place] [address], [place] [address] Jul, [facility] [address] [id number] [address] [place] [address], [place] [address] Jul, [facility] [address] [id number] [address] [place] [address], [place] [address] Jun, [facility] [address] [id number] [address] [place] [address], [place] [address] Jun, [facility] [address] [id number] [address] [place] [address], [place] [address] Jun, [facility] [address] [id number] [address] [place] [address], [place] [address] Jun, [facility] [address] [id number] [address] [place] [address], [place] [address] Jun, [facility] [address] [id number] [address] [place] [address], [place] [address] Jun, [facility] [address] [id number] [address] [place] [address], [place] [address] Jun, [facility] [address] [id number] [address] [place] [address], [place] [address] Jun, [facility] [address] [id number] [address] [place] [address], [place] [address] Jun, [facility] [address] [id number] [address] [place] [address], [place] [address] Jun, [facility] [address] [id number] [address] [place] [address], [place] [address] Jun, [facility] [address] [id number] [address] [place] [address], [place] [address] Jun, [facility] [address] [id number] [address] [place] [address], [place] [address] Jun, [facility] [address] [id number] [address] [place] [address], [place] [address] May, [facility] [address] [id number] [address] [place] [address], [place] [address] May, [facility] [address] [id number] [address] [place] [address], [place] [address] May, [facility] [address] [id number] [address] [place] [address], [place] [address] May, [facility] [address] [id number] [address] [place] [address], [place] [address] May, [facility] [address] [id number] [address] [place] [address], [place] [address] May, [facility] [address] [id number] [address] [place] [address], [place] [address] May, [facility] [address] [id number] [address] [place] [address], [place] [address] May, [facility] [address] [id number] [address] [place] [address], [place] [address] May, [facility] [address] [id number] [address] [place] [address], [place] [address] May, [facility] [address] [id number] [address] [place] [address], [place] [address] May, [facility] [address] [id number] [address] [place] [address], [place] [address] May, [facility] [address] [id number] [address] [place] [address], [place] [address] May, [facility] [address] [id number] [address] [place] [address], [place] [address] May, [facility] [address] [id number] [address] [place] [address], [place] [address] May, [facility] [address] [id number] [address] [place] [address], [place] [address] May, [facility] [address] [id number] [address] [place] [address], [place] [address] May, [facility] [address] [id number] [address] [place] [address], [place] [address] May, [facility] [address] [id number] [address] [place] [address], [place] [address] May, [facility] [address] [id number] [address] [place] [address], [place] [address] May, [facility] [address] [id number] [address] [place] [address], [place] [address] May, [facility] [address] [id number] [address] [place] [address], [place] [address] Apr, [facility] [address] [id number] [address] [place] [address], [place] [address] Apr, [facility] [address] [id number] [address] [place] [address], [place] [address] Apr, [facility] [address] [id number] [address] [place] [address], [place] [address] Apr, [facility] [address] [id number] [address] [place] [address], [place] [address] 08 Mar, 2013 [facility] [address] [id number] [address] [place] [address], [place] [address] 23 Feb, 2012 [facility] [address] [id number] [address] [place] [address], [place] [address] 16 Feb, 2012 [facility] [address] [id number] [address] [place] [address], [place] [address] 13 Feb, 2012 [facility] [address] [id number] [address] [place] [address], [place] [address] 10 Feb, 2012 [facility] [address] [id number] [address] [place] [address], [place] [address] 09 Feb, 2013 [facility] [address] [id number] [address] [place] [address], [place] [address] 09 Feb, 2013 [facility] [address] [id number] [address] [place] [address], [place] [address] Jan, [facility] [address] [id number] [address] [place] [address], [place] [address] Jan, [facility] [address] [id number] [address] [place] [address], [place] [address] Jan, [facility] [address] [id number] [address] [place] [address], [place] [address] Dec, [facility] [address] [id number] [address] [place] [address], [place] [address] Dec, [facility] [address] [id number] [address] [place] [address], [place] [address] Dec, [facility] [address] [id number] [address] [place] [address], [place] [address] 15 Dec, 2012 [facility] [address] [id number] [address] [place] [address], [place] [address] Dec, [facility] [address] [id number] [address] [place] [address], [place] [address] Nov, [facility] [address] [id number] [address] [place] [address], [place] [address] Nov, [facility] [address] [id number] [address] [place] [address], [place] [address] Nov, [facility] [address] [id number] [address] [place] [address], [place] [address] 13 Nov, 2012 [facility] [address] [id number] [address] [place] [address], [place] [address] Nov, [facility] [address] [id number] [address] [place] [address], [place] [address] 08 Nov, 2012 [facility] [address] [id number] [address] [place] [address], [place] [address] 07 Nov, 2012 [facility] [address] [id number] [address] [place] [address], [place] [address] 06 Nov, 2012 [facility] [address] [id number] [address] [place] [address], [place] [address] 05 Nov, 2012 [facility] [address] [id number] [address] [place] [address], [place] [address] Nov, [facility] [address] [id number] [address] [place] [address], [place] [id number] October, [facility] [address] [id number] [address] [place] [address], [place] [address] October, [facility] [address] [id number] [address] [place] [address], [place] [address] Sep, [facility] [address] [id number] [address] [place] [address], [place] [address] Sep, [facility] [address] [id number] [address] [place] [address], [place] [address] Sep, [facility] [address] [id number] [address] [place] [address], [place] [address] 06 Sep, 2012 [facility] [address] [id number] [address] [place] [id number] 05 Sep, 2012 [facility] [address] [id number] [address] [place] [address], [place] [address] 05 Aug, 2012 [facility] [address] [id number] [address] [place] [address], [place] [address] Aug, [facility] [address] [id number] [address] [place] [address], [place] [address] Jul, [facility] [address] [id number] [address] [place] [address], [place] [address] Jul, [facility] [address] [id number] [address] [place] [address], [place] [address] Jun, [facility] [address] [id number] [address] [place] [address], [place] [address] Jun, [facility] [address] [id number] [address] [place] [address], [place] [address] May, [facility] [address] [id number] [address] [place] [address], [place] [address] May, [facility] [address] [id number] [address] [place] [address], [place] [address] May, [facility] [address] [id number] [address] [place] [address], [place] [address] May, [facility] [address] [id number] [address] [place] [address], [place] [address] Apr, [facility] [address] [id number] [address] [place] [address], [place] [address] Apr, [facility] [address] [id number] [address] [place] [address], [place] [address] Apr, [facility] [address] [id number] [address] [place] [address], [place] [address] Apr, [facility] [address] [id number] [address] [place] [address], [place] [address] Apr, [facility] [address] [id number] [address] [place] [address], [place] [address] 14 Apr, 2012 [facility] [address] [id number] [address] [place] [address], [place] [address] 14 Apr, 2012 [facility] [address] [id number] [address] [place] [address], [place] [address] Apr, [facility] [address] [id number] [address] [place] [address], [place] [address] Apr, [facility] [address] [id number] [address] [place] [address], [place] [address] Mar, [facility] [address] [id number] [address] [place] [address], [place] [address] Mar, [facility] [address] [id number] [address] [place] [address], [place] [address] Feb, [facility] [address] [id number] [address] [place] [address], [place] [address] Jan, [facility] [address] [id number] [address] [place] [address], [place] [address] Jan, [facility] [address] [id number] [address] [place] [address], [place] [address] Dec, [facility] [address] [id number] [address] [place] [address], [place] [address] Nov, [facility] [address] [id number] [address] [place] [address], [place] [address] Nov, [facility] [address] [id number] [address] [place] [address], [place] [address] October, [facility] [address] [id number] [address] [place] [address], [place] [address] October, [facility] [address] [id number] [address] [place] [address], [place] [address] Sep, [facility] [address] [id number] [address] [place] [address], [place] [address] Sep, [facility] [address] [id number] [address] [place] [id number] May, [facility] [address] [id number] [address] [place] [id number] Apr, [facility] [address] [id number] [address] [place] [id number] Apr, [facility] [address] [id number] [address] [place] [id number] Apr, [facility] [address] [id number] [address] [place] [id number] Apr, [facility] [address] [id number] [address] [place] [id number] Apr, [facility] [address] [id number] [address] [place] [id number] Apr, [facility] [address] [id number] [address] [place] [id number] Apr, [facility] [address] [id number] [address] [place] [id number] Apr, [facility] [address] [id number] [address] [place] [id number] Mar, [facility] [address] [id number] [address] [place] [id number] Mar, [facility] [address] [id number] [address] [place] [id number] Mar, [facility] [address] [id number] [address] [place] [id number] Mar, [facility] [address] [id number] [address] [place] [id number] Mar, [facility] [address] [id number] [address] [place] [id number] Mar, IMMUNIZATIONS No Known Immunizations SOCIAL HISTORY Never Assessed REASON FOR VISIT PLAN OF CARE VITAL SIGNS Height 62 in 2014-08-29 Weight 233.9 lbs 2014-08-29 Temperature 97 degrees Fahrenheit 2014-08-29 Heart Rate 74 bpm 2014-08-29 Respiratory Rate 18 2014-08-29 Blood pressure systolic 130 mmHg 2014-08-29 Blood pressure diastolic 82 mmHg 2014-08-29 MEDICATIONS Unknown Medications RESULTS No Results PROCEDURES Procedure Date Ordered Result Body Site TRICHOMONAS VAGIN, DIR PROBE August 29, 2014 CHYLMD TRACH, DNA, AMP PROBE August 29, 2014 URINE CULTURE/COLONY COUNT August 29, 2014 CULTURE, BACTERIA, OTHER August 29, 2014 URINALYSIS, AUTO, W/O SCOPE August 29, 2014 INSTRUCTIONS MEDICATIONS ADMINISTERED No Known Medications MEDICAL (GENERAL) HISTORY Type Description Date Medical History HTN Medical History Depression Medical History Arthritis Medical History COPD Surgical History Breast lump removed Surgical History Removal of cyst from ovary Surgical History cholecystectomy Surgical History Stomach surgeryx3 Hospitalization History Mental floor at [facility]
--- OUTSIDE RECORDS SUMMARY | 2019-12-24 20:00 | XMS REPORT ---
Author Author Trey ANDRADE Organization [facility] Address [address] [place] [address] Care Team Providers Care Saw Operator Name Role Phone SURESH ANDRADE Unavailable PROBLEMS Type Condition ICD9-CM Code XRO05-YG Code Onset Dates Condition S tatus SNOMED Code Problem Nondependent 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 Ac tive 466501555 Problem Other chronic pain G89.29 Active 1 40048991 Problem Unspecified epilepsy without mention of intractable ep ilepsy G40.909 Active 47700039 Problem Hyperlipidemia, unspecified E78.5 Ac tive 40008589 Problem Hypertension I10 Active 4416729 3 Problem Esophageal reflux K21.9 Active 23 3581964 Problem Rheumatoid arthritis M06.9 Active 40282269 Problem Cough R05 Active 26612846 Problem Acquired hypothyroidism E03.9 Active 352785215 Problem Unspecified open-angle glaucoma, stage unspecified H40.10X0 Feb, Active 13367655 Problem Presbyopia H52.4 Active 96451559 Problem Insomnia G47.00 Active 701100762 Problem Arthralgia M25.50 Active 69267560 Problem Thyroid nodule E04.1 Active 90558 5005 Problem Anxiety disorder, unspecified F41.9 Active 890829581 Problem Chronic tension-type headache, intractable G44.221 Active 366054641 Problem Neuropathy G62.9 Active 722299901 Problem Goiter E04.9 Active 2168429 Problem Multinodular goiter E04.2 Active 714079064 Problem Carpal tunnel syndrome of left wrist G56.02 Active [id number] Problem Chronic obstructive pulmonary disease, unspecified COPD ty pe J44.9 Active 63183077 Problem BMI 40.0-44.9, adult Z68.41 Active 070939295 Problem Seasonal allergic rhinitis due to pollen J30.1 Active 88537187 Problem Depression F32.9 Active 03996415 Problem Essential hypertension I10 Active 62689529 Problem Depressive disorder F32.9 Active 17992270 Problem Right-sided low back pain without sciatica M54.5 Active 483538620 Problem Reactive airway disease with out complication, unspecified asthma severity, unspecified whether persistent J45.909 Active 466789317331 Problem Urge incontinence of urine N39.41 Act chen 57238086 Problem Abnormal laboratory test R89.9 Activ e 278385358 Problem COPD with exacerbation J44.1 Active 553467590 ALLERGIES No Information ENCOUNTERS Encounter Location Date Diagnosis [place] [address] [address] October, Acquired hypothyroidism E03. 9 [place] [address] [address] October, Acute gastritis without hemo rrhage, unspecified gastritis type K29.00 ; Epigastric pain R10.13 ; Essential hypertension I10 ; Screening for colon cancer Z12.11 and BMI 40.0-44.9, adult Z68.41 [place] [address] [address] October, [facility] [place] [address] [address] October, Chest pain R07.9 and Morbid obesity E66.01 [facility] [place] [address] [address] Sep, Generalized abdominal pain R 10.84 ; Morbid obesity E66.01 ; Non-intractable vomiting with nausea, unspecified vomiting type R11.2 and Seasonal allergic rhinitis due to pollen J30.1 [facility] [place] [address] [address] [place] [id number] [place] [address] Jul, COPD with exacerbation J44.1 ; Viral upper respiratory tract infection J06.9 and Morbid obesity E66.01 [facility] [address] [place] [id number] [place] [address] Jun, Viral upper respiratory trac t infection J06.9 [place] [address] [address] [place] [address] [place] [address] Apr, Abnormal laboratory test R89 .9 [facility] [address] [place] [id number] [place] [address] Apr, Abnormal laboratory test R89 .9 [facility] [address] [place] [id number] [place] [address] Apr, Abnormal laboratory test R89 .9 [facility] [address] [place] [id number] [place] [address] Apr, [place] [address] [address] Apr, [place] [address] [address] Apr, Nonintractable episodic head ache, unspecified headache type R51 ; Urge incontinence of urine N39.41 ; BMI 40.0-44.9, adult Z68.41 ; Myalgia M79.10 and Acute cystitis without hematuria N30.00 [facility] [address] [place] [id number] [place] [address] Mar, Nasal congestion R09.81 ; Lo w back pain M54.5 ; Reactive airway disease without complication, unspecified asthma severity, unspecified whether persistent J45.909 ; Other chronic pain G89.29 ; Acute cystitis with hematuria N30.01 and BMI 40.0-44.9, adult Z68.41 [facility] [address] [place] [id number] [place] [address] Mar, Acute cystitis with hematuri a N30.01 [facility] [address] [place] [id number] [place] [address] Mar, BMI 40.0-44.9, adult Z68.41 ; Acute cystitis with hematuria N30.01 ; Acute bilateral low back pain without sciatica M54.5 and Nausea R11.0 [facility] [address] [address] Mar, Hypertension I10 ; Acquired hypothyroidism E03.9 ; Esophageal reflux K21.9 ; Chronic obstructive pulmonary disease, unspecified COPD type J44.9 and BMI 40.0-44.9, adult Z68.41 [place] [address] [address] Mar, Hypertension I10 [place] [address] [address] Nov, Hyperlipidemia, unspecified E78.5 [place] [address] [address] October, Chest pain, unspecified type R07.9 and Acquired hypothyroidism E03.9 [place] [address] [address] October, Chest pain, unspecified type R07.9 ; Family history of coronary artery disease Z82.49 ; Carpal tunnel syndrome of left wrist G56.02 ; Hypertension I10 ; Esophageal reflux K21.9 ; Arthralgia M25.50 ; Acquired hypothyroidism E03.9 ; Cough R05 ; Nausea R11.0 ; Weight gain R63.5 and BMI 45.0-49.9, adult Z68.42 [place] [address] [address] Jun, Acquired hypothyroidism E03. 9 and Cough R05 [place] [address] [address] May, [place] [address] [address] Feb, Tarsal tunnel syndrome of timi th lower extremities G57.53 and Neuropathy G62.9 [place] [address] [address] [place] [id number] [place] [address] Dec, Pleuritis R09.1 [place] [address] [address] Nov, [place] [address] [id number] [address] [place] [address] October, Arthralgia, unspecified join t M25.50 and Allergy, initial encounter T78.40XA [place] [address] [address] [facility] [id number] [address] [place] [address] October, [place] [address] [address] [facility] [id number] [address] [place] [address] October, Acute recurrent maxillary si nusitis J01.01 and Arthralgia M25.50 [place] [address] [address] [place] [id number] [place] [address] Sep, Pharyngitis due to other org anism J02.8 [place] [address] [address] [place] [id number] [place] [address] Aug, Acute nasopharyngitis J00 [place] [address] [address] [place] [id number] [place] [address] Aug, Multinodular goiter E04.2 [place] [address] [address] [place] [id number] [place] [address] Aug, Thyroid nodule E04.1 [place] [address] [address] [place] [id number] [place] [address] 17 Jul, 2016 Tarsal tunnel syndrome of timi th lower extremities G57.53 [place] [address] [address] [place] [id number] [place] [address] Jun, Pneumonia due to infectious organism, unspecified laterality, unspecified part of lung J18.9 [place] [address] [address] [place] [id number] [place] [address] Jun, Bronchospasm with bronchitis , acute J20.9 [place] [address] [address] [facility] [id number] [address] [place] [address] May, Acute non-recurrent frontal sinusitis J01.10 [place] [address] [address] [place] [id number] [place] [address] May, Flat foot [pes planus] (acqu ired), left foot M21.42 ; Flat foot [pes planus] (acquired), right foot M21.41 and Neuropathy G62.9 [place] [address] [address] [place] [id number] [place] [address] Apr, Chronic tension-type headach e, intractable G44.221 ; Right lower quadrant abdominal pain R10.31 ; Cervicalgia M54.2 ; Acute gastritis without hemorrhage, unspecified gastritis type K29.00 and Hypertension I10 [place] [address] [address] Mar, Depression F32.9 and Anxiety disorder, unspecified F41.9 [place] [address] [address] Feb, Depressive disorder F32.9 an d Anxiety disorder, unspecified F41.9 [place] [address] [address] Jan, Dysuria R30.0 ; Lower abdomi nal pain R10.30 ; Acute bilateral low back pain without sciatica M54.5 ; Nausea and vomiting, unspecified intactability, vomiting of unspecified type R11.2 ; Pain in right foot M79.671 and Pain of left foot M79.672 [place] [address] [address] Dec, Urinary tract infection, sit e not specified N39.0 [place] [address] [address] Dec, [place] [address] [address] Nov, [place] [address] [address] Nov, Dysuria R30.0 [place] [address] [address] Nov, Dysuria R30.0 and Acute cyst itis with hematuria N30.01 [place] [address] [address] October, Nausea R11.0 [facility] [address] [place] [id number] [place] [address] October, Thyroid nodule E04.1 ; Carpa l tunnel syndrome, left upper limb G56.02 ; Carpal tunnel syndrome, right upper limb G56.01 and Constipation, unspecified constipation type K59.00 [place] [address] [address] October, [place] [address] [address] October, Thyroid nodule E04.1 [place] [address] [address] October, Cold thyroid nodule E04.1 [place] [address] [address] October, [place] [address] [address] Sep, Thyroid nodule E04.1 [place] [address] [address] Sep, Thyroid nodule E04.1 [place] [address] [address] Sep, Thyroid nodule E04.1 ; Hyper tension I10 ; Esophageal reflux K21.9 and Hyperlipidemia, unspecified E78.5 [place] [address] [address] Aug, Other chronic pain G89.29 ; Sinusitis J32.9 and Hypertension I10 [place] [address] [address] Jul, [facility] [address] [facility] [id number] [address] [place] [address] 15 Jul, 2015 [facility] [address] [facility] [id number] [address] [place] [address] Jul, Insomnia G47.00 and Arthralg ia M25.50 [facility] [address] [facility] [id number] [address] [place] [address] Jul, Depressive disorder F32.9 an d Anxiety disorder, unspecified F41.9 [facility] [address] [facility] [id number] [address] [place] [address] May, Right-sided low back pain wi thout sciatica M54.5 and Depression F32.9 [place] [address] [address] [place] [id number] [place] [address] Apr, Hematuria R31.9 [place] [address] [place] [id number] [place] [address] Mar, Other chronic pain G89.29 [facility] [address] [place] [id number] [place] [address] Mar, Other chronic pain G89.29 [facility] [address] [place] [id number] [place] [address] Feb, [facility] [address] [facility] [id number] [address] [place] [address] Feb, Other chronic pain 338.29 ; Dysuria 788.1 ; UTI (urinary tract infection) 599.0 ; Insomnia 780.52 ; Hot flashes 627.2 and Hypertension 401.9 [facility] [address] [facility] [id number] [address] [place] [address] 14 Feb, 2015 Dysuria 788.1 [facility] [address] [place] [id number] [place] [address] 02 Feb, 2015 [facility] [address] [place] [id number] [place] [address] Jan, [facility] [address] [id number] [address] [place] [address] Jan, [facility] [address] [id number] [address] [place] [address] Jan, Fibromyalgia 729.1 ; Hyperte nsion 401.9 ; Dysthymia 300.4 and Hot flashes 627.2 [facility] [address] [id number] [address] [place] [address] Dec, [facility] [address] [id number] [address] [place] [address] Dec, [facility] [address] [id number] [address] [place] [address] Dec, [facility] [address] [id number] [address] [place] [address] Nov, Other chronic pain 338.29 [facility] [address] [id number] [address] [place] [address] October, [facility] [address] [id number] [address] [place] [address] October, [facility] [address] [id number] [address] [place] [address] Sep, [facility] [address] [id number] [address] [place] [address] Sep, [facility] [address] [id number] [address] [place] [address] Aug, [facility] [address] [id number] [address] [place] [address] Aug, [facility] [address] [id number] [address] [place] [address] Aug, [facility] [address] [id number] [address] [place] [address] Aug, [facility] [address] [id number] [address] [place] [address], [place] [address] Aug, [facility] [address] [id number] [address] [place] [address], [place] [address] Aug, [facility] [place] [facility] [address] [id number] [address] [place] [address], [place] [address] Aug, [facility] [address] [id number] [address] [place] [address], [place] [address] Aug, 2014 [facility] [address] [id number] [address] [place] [address], [place] [address] Aug, [facility] [address] [id number] [address] [place] [address], [place] [address] Aug, [facility] [address] [id number] [address] [place] [address], [place] [address] Aug, [facility] [address] [id number] [address] [place] [address], [place] [address] Aug, [facility] [address] [id number] [address] [place] [address], [place] [address] Aug, [facility] [address] [id number] [address] [place] [address], [place] [address] Aug, [facility] [address] [id number] [address] [place] [address], [place] [address] Jul, 2014 [facility] [place] [facility] [address] [id number] [address] [place] [address], [place] [address] Jul, 2014 [facility] [address] [id number] [address] [place] [address], [place] [address] Jul, 2014 [facility] [place] [facility] [address] [id number] [address] [place] [address], [place] [address] Jul, 2014 [facility] [place] [facility] [address] [id number] [address] [place] [address], [place] [address] Jul, 2014 [facility] [place] [facility] [address] [id number] [address] [place] [address], [place] [address] Jul, [facility] [address] [id number] [address] [place] [address], [place] [address] Jun, [facility] [address] [id number] [address] [place] [address], [place] [address] Jun, [facility] [address] [id number] [address] [place] [address], [place] [address] 15 Jun, 2014 [facility] [address] [id number] [address] [place] [address], [place] [address] Jun, [facility] [address] [id number] [address] [place] [address], [place] [address] May, [facility] [address] [id number] [address] [place] [address], [place] [address] May, [facility] [address] [id number] [address] [place] [address], [place] [address] May, [facility] [address] [id number] [address] [place] [address], [place] [address] May, [facility] [address] [id number] [address] [place] [address], [place] [address] May, [facility] [address] [id number] [address] [place] [address], [place] [address] May, [facility] [address] [id number] [address] [place] [address], [place] [address] May, [facility] [place] [facility] [address] [id number] [address] [place] [address], [place] [address] May, [facility] [place] [facility] [address] [id number] [address] [place] [address], [place] [address] May, [facility] [place] [facility] [address] [id number] [address] [place] [address], [place] [address] May, [facility] [place] [facility] [address] [id number] [address] [place] [address], [place] [address] Apr, [facility] [place] [facility] [address] [id number] [address] [place] [address], [place] [address] Apr, [facility] [place] [facility] [address] [id number] [address] [place] [address], [place] [address] Apr, [facility] [place] [facility] [address] [id number] [address] [place] [address], [place] [address] Apr, [facility] [place] [facility] [address] [id number] [address] [place] [address], [place] [address] Apr, [facility] [place] [facility] [address] [id number] [address] [place] [address], [place] [address] Apr, [facility] [place] [facility] [address] [id number] [address] [place] [address], [place] [address] Apr, [facility] [place] [facility] [address] [id number] [address] [place] [address], [place] [address] Apr, [facility] [place] [facility] [address] [id number] [address] [place] [address], [place] [address] Apr, [facility] [place] [facility] [address] [id number] [address] [place] [address], [place] [address] Mar, [facility] [place] [facility] [address] [id number] [address] [place] [address], [place] [address] Mar, [facility] [place] [facility] [address] [id number] [address] [place] [address], [place] [address] Mar, [facility] [place] [facility] [address] [id number] [address] [place] [address], [place] [address] Mar, [facility] [place] [facility] [address] [id number] [address] [place] [address], [place] [address] Mar, [facility] [place] [facility] [address] [id number] [address] [place] [address], [place] [address] Mar, [facility] [place] [facility] [address] [id number] [address] [place] [address], [place] [address] Mar, [facility] [place] [facility] [address] [id number] [address] [place] [address], [place] [address] Mar, [facility] [place] [facility] [address] [id number] [facility] [place] [address] 30 Sep, 2013 [facility] [address] [id number] [facility] [place] [address] 30 Sep, 2013 [facility] [place] [facility] [address] [id number] [address] [place] [address], [place] [address] 24 Feb, 2013 [facility] [place] [facility] [address] [id number] [address] [place] [address], [place] [address] 24 Feb, 2013 [facility] [address] [id number] [address] [place] [address], [place] [address] 22 Feb, 2013 [facility] [address] [id number] [address] [place] [address], [place] [address] 22 Feb, 2013 [facility] [address] [id number] [address] [place] [address], [place] [address] 10 Feb, 2013 [facility] [address] [id number] [address] [place] [address], [place] [address] 10 Feb, 2013 [facility] [address] [id number] [address] [place] [address], [place] [address] 03 Feb, 2013 [facility] [place] [facility] [address] [id number] [address] [place] [address], [place] [address] 03 Sep, 2013 [facility] [place] [facility] [address] [id number] [address] [place] [address], [place] [address] 03 Feb, 2013 [facility] [place] [facility] [address] [id number] [address] [place] [address], [place] [address] 03 Sep, 2013 [facility] [place] [facility] [address] [id number] [address] [place] [address], [place] [id number] 03 Sep, 2013 [facility] [address] [id number] [address] [place] [address], [place] [id number] Feb, 2013 [facility] [address] [id number] [address] [place] [address], [place] [id number] Jan, [facility] [address] [id number] [address] [place] [address], [place] [id number] Jan, [facility] [address] [id number] [address] [place] [address], [place] [id number] Dec, [facility] [address] [id number] [address] [place] [address], [place] [id number] Dec, [facility] [address] [id number] [address] [place] [address], [place] [id number] Dec, [facility] [address] [id number] [address] [place] [address], [place] [id number] Dec, [facility] [address] [id number] [address] [place] [address], [place] [id number] Dec, [facility] [address] [id number] [address] [place] [address], [place] [id number] Dec, [facility] [address] [id number] [address] [place] [address], [place] [id number] Dec, [facility] [address] [id number] [address] [place] [address], [place] [id number] Dec, [facility] [address] [id number] [address] [place] [address], [place] [id number] Dec, [facility] [address] [id number] [address] [place] [address], [place] [id number] Dec, [facility] [address] [id number] [address] [place] [address], [place] [id number] Dec, [facility] [address] [id number] [address] [place] [address], [place] [id number] Dec, [facility] [address] [id number] [address] [place] [address], [place] [id number] Dec, [facility] [address] [id number] [address] [place] [address], [place] [id number] Dec, [facility] [address] [id number] [address] [place] [address], [place] [id number] Dec, [facility] [address] [id number] [address] [place] [address], [place] [id number] Dec, [facility] [address] [id number] [address] [place] [address], [place] [id number] Dec, [facility] [address] [id number] [address] [place] [address], [place] [id number] Dec, [facility] [address] [id number] [address] [place] [address], [place] [id number] Dec, [facility] [address] [id number] [address] [place] [address], [place] [id number] Nov, [facility] [address] [id number] [address] [place] [address], [place] [id number] Nov, [facility] [address] [id number] [address] [place] [address], [place] [id number] Nov, [facility] [address] [id number] [address] [place] [address], [place] [id number] Nov, [facility] [address] [id number] [address] [place] [address], [place] [id number] Nov, [facility] [address] [id number] [address] [place] [address], [place] [address] Nov, [facility] [address] [id number] [address] [place] [address], [place] [address] Nov, [facility] [address] [id number] [address] [place] [address], [place] [address] Nov, [facility] [address] [id number] [address] [place] [address], [place] [address] Nov, [facility] [address] [id number] [address] [place] [address], [place] [id number] October, [facility] [address] [id number] [address] [place] [address], [place] [address] October, [facility] [address] [id number] [address] [place] [address], [place] [address] October, [facility] [address] [id number] [address] [place] [address], [place] [address] October, [facility] [address] [id number] [address] [place] [address], [place] [address] October, [facility] [address] [id number] [address] [place] [address], [place] [id number] October, [facility] [address] [id number] [address] [place] [address], [place] [id number] October, [facility] [address] [id number] [address] [place] [address], [place] [address] October, [facility] [address] [id number] [address] [place] [address], [place] [id number] Sep, [facility] [address] [id number] [address] [place] [address], [place] [id number] Sep, [facility] [address] [id number] [address] [place] [address], [place] [id number] Sep, [facility] [address] [id number] [address] [place] [address], [place] [address] Sep, [facility] [address] [id number] [address] [place] [address], [place] [address] Sep, [facility] [address] [id number] [address] [place] [address], [place] [id number] Sep, [facility] [address] [id number] [address] [place] [address], [place] [id number] Sep, [facility] [address] [id number] [address] [place] [address], [place] [address] Aug, [facility] [address] [id number] [address] [place] [address], [place] [address] Aug, [facility] [address] [id number] [address] [place] [address], [place] [id number] Aug, [facility] [address] [id number] [address] [place] [address], [place] [address] Aug, [facility] [address] [id number] [address] [place] [address], [place] [id number] Aug, [facility] [address] [id number] [address] [place] [address], [place] [address] Aug, [facility] [address] [id number] [address] [place] [address], [place] [id number] Jul, [facility] [address] [id number] [address] [place] [address], [place] [address] Jul, [facility] [address] [id number] [address] [place] [address], [place] [address] Jul, [facility] [address] [id number] [address] [place] [address], [place] [address] Jul, [facility] [address] [id number] [address] [place] [address], [place] [id number] Jul, [facility] [address] [id number] [address] [place] [address], [place] [address] Jul, [facility] [address] [id number] [address] [place] [address], [place] [address] Jun, [facility] [address] [id number] [address] [place] [address], [place] [id number] Jun, [facility] [address] [id number] [address] [place] [address], [place] [id number] Jun, [facility] [address] [id number] [address] [place] [address], [place] [address] Jun, [facility] [address] [id number] [address] [place] [address], [place] [address] Jun, [facility] [address] [id number] [address] [place] [address], [place] [address] Jun, [facility] [address] [id number] [address] [place] [address], [place] [address] Jun, [facility] [address] [id number] [address] [place] [address], [place] [address] Jun, [facility] [address] [id number] [address] [place] [address], [place] [address] Jun, [facility] [address] [id number] [address] [place] [address], [place] [address] Jun, [facility] [address] [id number] [address] [place] [address], [place] [address] Jun, [facility] [address] [id number] [address] [place] [address], [place] [address] Jun, [facility] [address] [id number] [address] [place] [address], [place] [address] Jun, [facility] [address] [id number] [address] [place] [address], [place] [address] May, [facility] [address] [id number] [address] [place] [address], [place] [address] May, [facility] [address] [id number] [address] [place] [address], [place] [address] May, [facility] [address] [id number] [address] [place] [address], [place] [address] May, [facility] [address] [id number] [address] [place] [address], [place] [address] May, [facility] [address] [id number] [address] [place] [address], [place] [address] May, [facility] [address] [id number] [address] [place] [address], [place] [address] May, [facility] [address] [id number] [address] [place] [address], [place] [address] May, [facility] [address] [id number] [address] [place] [address], [place] [address] May, [facility] [address] [id number] [address] [place] [address], [place] [address] May, [facility] [address] [id number] [address] [place] [address], [place] [address] May, [facility] [address] [id number] [address] [place] [address], [place] [address] May, [facility] [address] [id number] [address] [place] [address], [place] [address] May, [facility] [address] [id number] [address] [place] [address], [place] [address] May, [facility] [address] [id number] [address] [place] [address], [place] [address] May, [facility] [address] [id number] [address] [place] [address], [place] [address] May, [facility] [address] [id number] [address] [place] [address], [place] [address] May, [facility] [address] [id number] [address] [place] [address], [place] [id number] May, [facility] [address] [id number] [address] [place] [address], [place] [address] May, [facility] [address] [id number] [address] [place] [address], [place] [address] May, [facility] [address] [id number] [address] [place] [address], [place] [address] May, [facility] [address] [id number] [address] [place] [address], [place] [address] Apr, [facility] [address] [id number] [address] [place] [address], [place] [address] Apr, [facility] [address] [id number] [address] [place] [address], [place] [address] Apr, [facility] [address] [id number] [address] [place] [address], [place] [id number] Apr, [facility] [address] [id number] [address] [place] [address], [place] [id number] 08 Mar, 2013 [facility] [address] [id number] [address] [place] [address], [place] [address] 23 Feb, 2012 [facility] [address] [id number] [address] [place] [address], [place] [id number] 16 Feb, 2012 [facility] [address] [id number] [address] [place] [address], [place] [address] 13 Feb, 2012 [facility] [address] [id number] [address] [place] [address], [place] [address] 10 Feb, 2012 [facility] [address] [id number] [address] [place] [address], [place] [address] 09 Feb, 2013 [facility] [address] [id number] [address] [place] [address], [place] [address] 09 Feb, 2013 [facility] [address] [id number] [address] [place] [address], [place] [address] Jan, [facility] [address] [id number] [address] [place] [address], [place] [address] Jan, [facility] [address] [id number] [address] [place] [address], [place] [address] Jan, [facility] [address] [id number] [address] [place] [address], [place] [address] Dec, [facility] [address] [id number] [address] [place] [address], [place] [id number] Dec, [facility] [address] [id number] [address] [place] [address], [place] [address] Dec, [facility] [address] [id number] [address] [place] [address], [place] [address] 15 Dec, 2012 [facility] [address] [id number] [address] [place] [address], [place] [address] Dec, [facility] [address] [id number] [address] [place] [address], [place] [address] Nov, [facility] [address] [id number] [address] [place] [address], [place] [address] Nov, [facility] [address] [id number] [address] [place] [address], [place] [address] Nov, [facility] [address] [id number] [address] [place] [address], [place] [address] 13 Nov, 2012 [facility] [address] [id number] [address] [place] [address], [place] [address] Nov, [facility] [address] [id number] [address] [place] [address], [place] [id number] 08 Nov, 2012 [facility] [address] [id number] [address] [place] [address], [place] [address] 07 Nov, 2012 [facility] [address] [id number] [address] [place] [address], [place] [id number] 06 Nov, 2012 [facility] [address] [id number] [address] [place] [address], [place] [address] 05 Nov, 2012 [facility] [address] [id number] [address] [place] [address], [place] [address] Nov, [facility] [address] [id number] [address] [place] [address], [place] [address] October, [facility] [address] [id number] [address] [place] [address], [place] [address] October, [facility] [address] [id number] [address] [place] [address], [place] [address] Sep, [facility] [address] [id number] [address] [place] [address], [place] [address] Sep, [facility] [address] [id number] [address] [place] [address], [place] [address] Sep, [facility] [address] [id number] [address] [place] [address], [place] [id number] 06 Sep, 2012 [facility] [address] [id number] [address] [place] [id number] 05 Sep, 2012 [facility] [address] [id number] [address] [place] [address], [place] [id number] 05 Aug, 2012 [facility] [address] [id number] [address] [place] [address], [place] [address] Aug, [facility] [address] [id number] [address] [place] [address], [place] [address] Jul, [facility] [address] [id number] [address] [place] [address], [place] [address] Jul, [facility] [address] [id number] [address] [place] [address], [place] [address] Jun, [facility] [address] [id number] [address] [place] [address], [place] [address] Jun, [facility] [address] [id number] [address] [place] [address], [place] [address] May, [facility] [address] [id number] [address] [place] [address], [place] [address] May, [facility] [address] [id number] [address] [place] [address], [place] [address] May, [facility] [address] [id number] [address] [place] [address], [place] [address] May, [facility] [address] [id number] [address] [place] [address], [place] [address] Apr, [facility] [address] [id number] [address] [place] [address], [place] [address] Apr, [facility] [address] [id number] [address] [place] [address], [place] [address] Apr, [facility] [address] [id number] [address] [place] [address], [place] [address] Apr, [facility] [address] [id number] [address] [place] [address], [place] [address] Apr, [facility] [address] [id number] [address] [place] [address], [place] [address] 14 Apr, 2012 [facility] [address] [id number] [address] [place] [address], [place] [address] 14 Apr, 2012 [facility] [address] [id number] [address] [place] [address], [place] [address] Apr, [facility] [address] [id number] [address] [place] [address], [place] [address] Apr, [facility] [address] [id number] [address] [place] [address], [place] [address] Mar, [facility] [address] [id number] [address] [place] [address], [place] [address] Mar, [facility] [address] [id number] [address] [place] [address], [place] [address] Feb, [facility] [address] [id number] [address] [place] [address], [place] [address] Jan, [facility] [address] [id number] [address] [place] [address], [place] [address] Jan, [facility] [address] [id number] [address] [place] [address], [place] [address] Dec, [facility] [address] [id number] [address] [place] [address], [place] [address] Nov, [facility] [address] [id number] [address] [place] [address], [place] [address] Nov, [facility] [address] [id number] [address] [place] [address], [place] [address] October, [facility] [address] [id number] [address] [place] [address], [place] [address] October, [facility] [address] [id number] [address] [place] [address], [place] [id number] Sep, [facility] [address] [id number] [address] [place] [address], [place] [address] Sep, [facility] [address] [id number] [address] [place] [id number] May, [facility] [address] [id number] [address] [place] [id number] Apr, [facility] [address] [id number] [address] [place] [id number] Apr, [facility] [address] [id number] [address] [place] [id number] Apr, [facility] [address] [id number] [address] [place] [id number] Apr, [facility] [address] [id number] [address] [place] [id number] Apr, [facility] [address] [id number] [address] [place] [id number] Apr, [facility] [address] [id number] [address] [place] [id number] Apr, [facility] [address] [id number] [address] [place] [id number] Apr, [facility] [address] [id number] [address] [place] [id number] Mar, [facility] [address] [id number] [address] [place] [id number] Mar, [facility] [address] [id number] [address] [place] [id number] Mar, [facility] [address] [id number] [address] [place] [id number] Mar, [facility] [address] [id number] [address] [place] [id number] Mar, [facility] [address] [id number] [address] [place] [id number] Mar, IMMUNIZATIONS No Known Immunizations SOCIAL HISTORY [...] surgeryx3 Hospitalization History Mental floor at [facility]
--- OUTSIDE RECORDS SUMMARY | 2019-12-24 20:00 | XMS REPORT ---
Author Author Trey POLK Organization [facility] Address [address] [place] [address] Care Team Providers Care [employer] Waste Technician Name Role Phone SYBIL POLK Unavailable PROBLEMS Type Condition ICD9-CM Code [id number] Code Onset Dates Condition S tatus SNOMED Code Problem Nondependent 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 Ac tive 731144426 Problem Other chronic pain G89.29 Active 1 71513202 Problem Unspecified epilepsy without mention of intractable ep ilepsy G40.909 Active 77957847 Problem Hyperlipidemia, unspecified E78.5 Ac tive 39541203 Problem Hypertension I10 Active 2375423 3 Problem Esophageal reflux K21.9 Active 23 5270712 Problem Rheumatoid arthritis M06.9 Active 85257940 Problem Cough R05 Active 51509711 Problem Acquired hypothyroidism E03.9 Active 057064226 Problem Unspecified open-angle glaucoma, stage unspecified H40.10X0 Feb, Active 72366806 Problem Presbyopia H52.4 Active 29715473 Problem Insomnia G47.00 Active 205961888 Problem Arthralgia M25.50 Active 49981667 Problem Thyroid nodule E04.1 Active 72750 5005 Problem Anxiety disorder, unspecified F41.9 Active 988397420 Problem Chronic tension-type headache, intractable G44.221 Active 743534211 Problem Neuropathy G62.9 Active 189593828 Problem Goiter E04.9 Active 9157058 Problem Multinodular goiter E04.2 Active 440197933 Problem Carpal tunnel syndrome of left wrist G56.02 Active [id number] Problem Chronic obstructive pulmonary disease, unspecified COPD ty pe J44.9 Active 00281537 Problem BMI 40.0-44.9, adult Z68.41 Active 104059855 Problem Seasonal allergic rhinitis due to pollen J30.1 Active 56940438 Problem Depression F32.9 Active 62123962 Problem Essential hypertension I10 Active 07023174 Problem Depressive disorder F32.9 Active 88469760 Problem Right-sided low back pain without sciatica M54.5 Active 143810720 Problem Reactive airway disease with out complication, unspecified asthma severity, unspecified whether persistent J45.909 Active 951807344736 Problem Urge incontinence of urine N39.41 Act chen 70761393 Problem Abnormal laboratory test R89.9 Activ e 675881192 Problem COPD with exacerbation J44.1 Active 214948939 ALLERGIES No Information ENCOUNTERS Encounter Location Date Diagnosis [place] [address] [address] October, Acquired hypothyroidism E03. [address] [address] October, Acute gastritis without hemo rrhage, unspecified gastritis type K29.00 ; Epigastric pain R10.13 ; Essential hypertension I10 ; Screening for colon cancer Z12.11 and BMI 40.0-44.9, adult Z68.41 [place] [address] [address] October, [facility] [address] [address] October, Chest pain R07.9 and Morbid obesity E66.01 [facility] [address] [address] Sep, Generalized abdominal pain R 10.84 ; Morbid obesity E66.01 ; Non-intractable vomiting with nausea, unspecified vomiting type R11.2 and Seasonal allergic rhinitis due to pollen J30.1 [facility] [place] [address] [address] Jul, COPD with exacerbation J44.1 ; Viral upper respiratory tract infection J06.9 and Morbid obesity E66.01 [facility] [place] [address] [address] Jun, Viral upper respiratory trac t infection J06.9 [place] [address] [address] Apr, Abnormal laboratory test R89 .9 [facility] [address] [facility] [id number] [address] [place] [address] Apr, Abnormal laboratory test R89 .9 [facility] [address] [place] [id number] [address] [place] [address] Apr, Abnormal laboratory test R89 .9 [facility] [address] [place] [id number] [address] [place] [address] Apr, [place] [address] [address] [place] [id number] [place] [address] Apr, [place] [address] [address] Apr, Nonintractable episodic head ache, unspecified headache type R51 ; Urge incontinence of urine N39.41 ; BMI 40.0-44.9, adult Z68.41 ; Myalgia M79.10 and Acute cystitis without hematuria N30.00 [place] [address] [address] [place] [id number] [place] [address] Mar, Nasal congestion R09.81 ; Lo w back pain M54.5 ; Reactive airway disease without complication, unspecified asthma severity, unspecified whether persistent J45.909 ; Other chronic pain G89.29 ; Acute cystitis with hematuria N30.01 and BMI 40.0-44.9, adult Z68.41 [facility] [address] [place] [id number] [address] [place] [address] Mar, Acute cystitis with hematuri a N30.01 [facility] [address] [place] [id number] [address] [place] [address] Mar, BMI 40.0-44.9, adult Z68.41 ; Acute cystitis with hematuria N30.01 ; Acute bilateral low back pain without sciatica M54.5 and Nausea R11.0 [facility] [address] [place] [id number] [address] [place] [address] Mar, Hypertension I10 ; Acquired hypothyroidism E03.9 ; Esophageal reflux K21.9 ; Chronic obstructive pulmonary disease, unspecified COPD type J44.9 and BMI 40.0-44.9, adult Z68.41 [place] [address] [address] Mar, Hypertension I10 [place] [address] [address] Nov, Hyperlipidemia, unspecified E78.5 [place] [address] [address] October, Chest pain, unspecified type R07.9 and Acquired hypothyroidism E03.9 [place] [address] [address] October, Chest pain, unspecified type R07.9 ; Family history of coronary artery disease Z82.49 ; Carpal tunnel syndrome of left wrist G56.02 ; Hypertension I10 ; Esophageal reflux K21.9 ; Arthralgia M25.50 ; Acquired hypothyroidism E03.9 ; Cough R05 ; Nausea R11.0 ; Weight gain R63.5 and BMI 45.0-49.9, adult Z68.42 [place] [address] [address] Jun, Acquired hypothyroidism E03. 9 and Cough R05 [place] [address] [address] May, [place] [address] [address] Feb, Tarsal tunnel syndrome of timi th lower extremities G57.53 and Neuropathy G62.9 [place] [address] [address] Dec, Pleuritis R09.1 [place] [address] [address] Nov, [place] [address] [place] [address] October, Arthralgia, unspecified join t M25.50 and Allergy, initial encounter T78.40XA [place] [address] [place] [address] October, [place] [address] [address] October, Acute recurrent maxillary si nusitis J01.01 and Arthralgia M25.50 [place] [address] [address] Sep, Pharyngitis due to other org anism J02.8 [place] [address] [address] Aug, Acute nasopharyngitis J00 [place] [address] [address] Aug, Multinodular goiter E04.2 [place] [address] [address] Aug, Thyroid nodule E04.1 [place] [address] [address] Jul, Tarsal tunnel syndrome of timi th lower extremities G57.53 [place] [address] [address] Jun, Pneumonia due to infectious organism, unspecified laterality, unspecified part of lung J18.9 [place] [address] [address] Jun, Bronchospasm with bronchitis , acute J20.9 [place] [address] [address] [place] [id number] [place] [address] May, Acute non-recurrent frontal sinusitis J01.10 [place] [address] [address] May, Flat foot [pes planus] (acqu ired), left foot M21.42 ; Flat foot [pes planus] (acquired), right foot M21.41 and Neuropathy G62.9 [place] [address] [address] Apr, Chronic tension-type headach e, intractable G44.221 ; Right lower quadrant abdominal pain R10.31 ; Cervicalgia M54.2 ; Acute gastritis without hemorrhage, unspecified gastritis type K29.00 and Hypertension I10 [place] [address] [address] Mar, Depression F32.9 and Anxiety disorder, unspecified F41.9 [place] [address] [address] Feb, Depressive disorder F32.9 an d Anxiety disorder, unspecified F41.9 [place] [address] [address] Jan, Dysuria R30.0 ; Lower abdomi nal pain R10.30 ; Acute bilateral low back pain without sciatica M54.5 ; Nausea and vomiting, unspecified intactability, vomiting of unspecified type R11.2 ; Pain in right foot M79.671 and Pain of left foot M79.672 [place] [address] [address] Dec, Urinary tract infection, sit e not specified N39.0 [place] [address] [address] Dec, [place] [address] [address] Nov, [place] [address] [address] Nov, Dysuria R30.[address] [address] Nov, Dysuria R30.0 and Acute cyst itis with hematuria N30.01 [facility] [address] [address] October, Nausea R11.0 [facility] [address] [place] [id number] [place] [address] October, Thyroid nodule E04.1 ; Carpa l tunnel syndrome, left upper limb G56.02 ; Carpal tunnel syndrome, right upper limb G56.01 and Constipation, unspecified constipation type K59.00 [facility] [address] [address] October, [place] [address] [address] October, Thyroid nodule E04.1 [place] [address] [address] October, Cold thyroid nodule E04.1 [place] [address] [address] October, [place] [address] [address] Sep, Thyroid nodule E04.1 [place] [address] [address] Sep, Thyroid nodule E04.1 [place] [address] [address] Sep, Thyroid nodule E04.1 ; Hyper tension I10 ; Esophageal reflux K21.9 and Hyperlipidemia, unspecified E78.5 [place] [address] [address] Aug, Other chronic pain G89.29 ; Sinusitis J32.9 and Hypertension I10 [place] [address] [address] [place] [id number] [place] [address] Jul, [place] [address] [facility] [id number] [address] [place] [address] 15 Jul, 2015 [facility] [address] [place] [id number] [address] [place] [address] 10 Jul, 2015 Insomnia G47.00 and Arthralg ia M25.50 [facility] [address] [place] [id number] [address] [place] [address] 10 Jul, 2015 Depressive disorder F32.9 an d Anxiety disorder, unspecified F41.9 [facility] [address] [facility] [id number] [address] [place] [address] May, Right-sided low back pain wi thout sciatica M54.5 and Depression F32.9 [place] [address] [place] [id number] [place] [address] Apr, Hematuria R31.9 [place] [address] [address] Mar, Other chronic pain G89.29 [place] [address] [address] [place] [id number] [place] [address] Mar, Other chronic pain G89.29 [facility] [address] [place] [id number] [place] [address] Feb, [facility] [address] [place] [id number] [place] [address] Feb, Other chronic pain 338.29 ; Dysuria 788.1 ; UTI (urinary tract infection) 599.0 ; Insomnia 780.52 ; Hot flashes 627.2 and Hypertension 401.9 [facility] [address] [facility] [id number] [address] [place] [address] 14 Feb, 2015 Dysuria 788.1 [facility] [address] [place] [id number] [address] [place] [address] 02 Feb, 2015 [facility] [address] [place] [id number] [place] [address] Jan, [facility] [address] [id number] [address] [place] [address] Jan, [facility] [address] [id number] [address] [place] [address] Jan, Fibromyalgia 729.1 ; Hyperte nsion 401.9 ; Dysthymia 300.4 and Hot flashes 627.2 [facility] [address] [id number] [address] [place] [address] Dec, [facility] [address] [id number] [address] [place] [address] Dec, [facility] [address] [id number] [address] [place] [address] Dec, [facility] [address] [id number] [address] [place] [address] Nov, Other chronic pain 338.29 [facility] [address] [id number] [address] [place] [address] October, [facility] [address] [id number] [address] [place] [address] October, [facility] [address] [id number] [address] [place] [address] Sep, [facility] [address] [id number] [address] [place] [address] Sep, [facility] [address] [id number] [address] [place] [address] Aug, [facility] [address] [id number] [address] [place] [address] Aug, [facility] [address] [id number] [address] [place] [address] Aug, [facility] [address] [id number] [address] [place] [address] Aug, [facility] [address] [id number] [address] [place] [address] Aug, [facility] [address] [id number] [address] [place] [address], [place] [address] Aug, [facility] [address] [id number] [address] [place] [address], [place] [address] Aug, [facility] [address] [id number] [address] [place] [address], [place] [address] Aug, [facility] [address] [id number] [address] [place] [address], [place] [address] Aug, [facility] [address] [id number] [address] [place] [address], [place] [address] Aug, [facility] [address] [id number] [address] [place] [address], [place] [address] Aug, [facility] [address] [id number] [address] [place] [address], [place] [address] Aug, [facility] [address] [id number] [address] [place] [address], [place] [address] Aug, [facility] [address] [id number] [address] [place] [address], [place] [address] Aug, [facility] [address] [id number] [address] [place] [address], [place] [address] Jul, [facility] [address] [id number] [address] [place] [address], [place] [address] Jul, 2014 [facility] [address] [id number] [address] [place] [address], [place] [address] Jul, 2014 [facility] [address] [id number] [address] [place] [address], [place] [address] Jul, 2014 [facility] [address] [id number] [address] [place] [address], [place] [address] Jul, 2014 [facility] [address] [id number] [address] [place] [address] 12 Jul, 2014 [facility] [address] [id number] [address] [place] [address], [place] [address] Jun, [facility] [address] [id number] [address] [place] [address], [place] [address] Jun, [facility] [address] [id number] [address] [place] [address], [place] [address] Jun, [facility] [address] [id number] [address] [place] [address], [place] [address] Jun, [facility] [address] [id number] [address] [place] [address], [place] [address] May, [facility] [address] [id number] [address] [place] [address], [place] [address] May, [facility] [address] [id number] [address] [place] [address], [place] [address] May, [facility] [address] [id number] [address] [place] [address], [place] [address] May, [facility] [address] [id number] [address] [place] [address], [place] [address] May, [facility] [address] [id number] [address] [place] [address], [place] [address] May, [facility] [address] [id number] [address] [place] [address], [place] [address] May, [facility] [address] [id number] [address] [place] [address], [place] [address] May, [facility] [address] [id number] [address] [place] [address], [place] [address] May, [facility] [address] [id number] [address] [place] [address], [place] [address] May, [facility] [address] [id number] [address] [place] [address], [place] [address] Apr, [facility] [address] [id number] [address] [place] [address] Apr, [facility] [address] [id number] [address] [place] [address], [place] [address] Apr, [facility] [address] [id number] [address] [place] [address] Apr, [facility] [address] [id number] [address] [place] [address], [place] [address] Apr, [facility] [address] [id number] [address] [place] [address] Apr, [facility] [address] [id number] [address] [place] [address], [place] [address] Apr, [facility] [address] [id number] [address] [place] [address], [place] [address] Apr, [facility] [address] [id number] [address] [place] [address], [place] [address] Apr, [facility] [address] [id number] [address] [place] [address] Mar, [facility] [address] [id number] [address] [place] [address] Mar, [facility] [address] [id number] [address] [place] [address], [place] [address] Mar, [facility] [address] [id number] [address] [place] [address] Mar, [facility] [address] [id number] [address] [place] [address] Mar, [facility] [address] [id number] [address] [place] [address] Mar, [facility] [address] [id number] [address] [place] [address] Mar, [facility] [address] [id number] [address] [place] [address] Mar, [facility] [address] [id number] [facility] [address] 30 Sep, 2013 [facility] [address] [id number] [facility] [address] 30 Sep, 2013 [facility] [address] [id number] [facility] [address] 24 Sep, 2013 [facility] [address] [id number] [address] [place] [address], [place] [address] 24 Sep, 2013 [facility] [address] [id number] [address] [place] [address], [place] [address] 22 Sep, 2013 [facility] [address] [id number] [address] [place] [address], [place] [address] 22 Sep, 2013 [facility] [address] [id number] [address] [place] [address], [place] [address] 10 Sep, 2013 [facility] [address] [id number] [address] [place] [address], [place] [address] 10 Sep, 2013 [facility] [address] [id number] [address] [place] [address], [place] [address] 03 Sep, 2013 [facility] [address] [id number] [address] [place] [address], [place] [address] 03 Sep, 2013 [facility] [address] [id number] [address] [place] [address], [place] [address] 03 Sep, 2013 [facility] [address] [id number] [address] [place] [address], [place] [address] 03 Sep, 2013 [facility] [address] [id number] [address] [place] [address], [place] [address] 03 Sep, 2013 [facility] [address] [id number] [address] [place] [address], [place] [address] 03 Feb, 2013 [facility] [address] [id number] [address] [place] [address], [place] [address] Jan, 2013 [facility] [address] [id number] [address] [place] [address], [place] [address] Jan, [facility] [address] [id number] [address] [place] [address], [place] [address] Dec, [facility] [address] [id number] [address] [place] [address], [place] [address] Dec, [facility] [address] [id number] [address] [place] [address], [place] [address] Dec, [facility] [address] [id number] [address] [place] [address], [place] [address] Dec, [facility] [address] [id number] [address] [place] [address], [place] [id number] Dec, [facility] [address] [id number] [address] [place] [address], [place] [address] Dec, [facility] [address] [id number] [address] [place] [address], [place] [address] Dec, [facility] [address] [id number] [address] [place] [address], [place] [address] Dec, [facility] [address] [id number] [address] [place] [address], [place] [address] Dec, [facility] [address] [id number] [address] [place] [address], [place] [address] Dec, [facility] [address] [id number] [address] [place] [address], [place] [address] Dec, [facility] [address] [id number] [address] [place] [address], [place] [address] Dec, [facility] [address] [id number] [address] [place] [address], [place] [address] Dec, [facility] [address] [id number] [address] [place] [address], [place] [address] Dec, [facility] [address] [id number] [address] [place] [address], [place] [address] Dec, [facility] [address] [id number] [address] [place] [address], [place] [address] Dec, [facility] [address] [id number] [address] [place] [address], [place] [address] Dec, [facility] [address] [id number] [address] [place] [address], [place] [address] Dec, [facility] [address] [id number] [address] [place] [address], [place] [address] Dec, [facility] [address] [id number] [address] [place] [address], [place] [address] Nov, [facility] [address] [id number] [address] [place] [address], [place] [address] Nov, [facility] [address] [id number] [address] [place] [address], [place] [address] Nov, [facility] [address] [id number] [address] [place] [address], [place] [address] Nov, [facility] [address] [id number] [address] [place] [address], [place] [address] Nov, [facility] [address] [id number] [address] [place] [address], [place] [address] Nov, [facility] [address] [id number] [address] [place] [address], [place] [address] Nov, [facility] [facility] [address] [id number] [address] [place] [address], [place] [address] Nov, [facility] [address] [id number] [address] [place] [address], [place] [address] Nov, [facility] [address] [id number] [address] [place] [address], [place] [address] October, [facility] [address] [id number] [address] [place] [address], [place] [address] October, [facility] [address] [id number] [address] [place] [address], [place] [address] October, [facility] [address] [id number] [facility] [address] October, [facility] [address] [id number] [facility] [address] October, [facility] [address] [id number] [address] [place] [address], [place] [address] October, [facility] [address] [id number] [address] [place] [address], [place] [address] October, [facility] [address] [id number] [address] [place] [address], [place] [address] October, [facility] [address] [id number] [address] [place] [address], [place] [address] Sep, [facility] [address] [id number] [address] [place] [address], [place] [address] Sep, [facility] [address] [id number] [address] [place] [address], [place] [address] Sep, [facility] [address] [id number] [address] [place] [address], [place] [address] Sep, [facility] [address] [id number] [address] [place] [address], [place] [address] Sep, [facility] [address] [id number] [address] [place] [address], [place] [address] Sep, [facility] [address] [id number] [address] [place] [address], [place] [address] Sep, [facility] [address] [id number] [address] [place] [address], [place] [address] Aug, [facility] [address] [id number] [address] [place] [address], [place] [address] Aug, [facility] [address] [id number] [address] [place] [address], [place] [address] Aug, [facility] [address] [id number] [address] [place] [address], [place] [address] Aug, [facility] [address] [id number] [address] [place] [address], [place] [address] Aug, [facility] [address] [id number] [address] [place] [address], [place] [address] Aug, [facility] [address] [id number] [address] [place] [address], [place] [address] Jul, [facility] [address] [id number] [address] [place] [address], [place] [address] Jul, [facility] [address] [id number] [address] [place] [address], [place] [address] Jul, [facility] [address] [id number] [address] [place] [address], [place] [address] Jul, [facility] [address] [id number] [address] [place] [address], [place] [address] Jul, [facility] [address] [id number] [address] [place] [address], [place] [address] Jul, [facility] [address] [id number] [address] [place] [address], [place] [address] Jun, [facility] [address] [id number] [address] [place] [address], [place] [address] Jun, [facility] [address] [id number] [address] [place] [address], [place] [address] Jun, [facility] [address] [id number] [address] [place] [address], [place] [address] Jun, [facility] [address] [id number] [address] [place] [address], [place] [address] Jun, [facility] [address] [id number] [address] [place] [address], [place] [address] Jun, [facility] [address] [id number] [address] [place] [address], [place] [address] Jun, [facility] [address] [id number] [address] [place] [address], [place] [address] Jun, [facility] [address] [id number] [address] [place] [address], [place] [address] Jun, [facility] [address] [id number] [address] [place] [address], [place] [address] 14 Jun, 2013 [facility] [address] [id number] [address] [place] [address], [place] [address] Jun, [facility] [address] [id number] [address] [place] [address], [place] [address] Jun, [facility] [address] [id number] [address] [place] [address], [place] [address] Jun, [facility] [address] [id number] [address] [place] [address], [place] [address] 30 May, [address] [facility] [address] [id number] [address] [place] [address], [place] [address] 30 May, [address] [facility] [address] [id number] [address] [place] [address], [place] [address] 30 May, [address] [facility] [address] [id number] [address] [place] [address], [place] [address] May, [facility] [address] [id number] [address] [place] [address], [place] [address] May, [facility] [address] [id number] [address] [place] [address], [place] [address] 14 May, 2013 [facility] [address] [id number] [address] [place] [address], [place] [address] 14 May, 2013 [facility] [address] [id number] [address] [place] [address], [place] [address] May, [facility] [address] [id number] [address] [place] [address], [place] [address] May, [facility] [address] [id number] [address] [place] [address], [place] [address] May, [facility] [address] [id number] [address] [place] [address], [place] [address] May, [facility] [address] [id number] [address] [place] [address], [place] [address] May, [facility] [address] [id number] [address] [place] [address], [place] [address] May, [facility] [address] [id number] [address] [place] [address], [place] [address] May, [facility] [address] [id number] [address] [place] [address], [place] [address] May, [facility] [address] [id number] [address] [place] [address], [place] [address] May, [facility] [address] [id number] [address] [place] [address], [place] [address] May, [facility] [address] [id number] [address] [place] [address], [place] [address] May, [facility] [address] [id number] [address] [place] [address], [place] [address] May, [facility] [address] [id number] [address] [place] [address], [place] [address] May, [facility] [address] [id number] [address] [place] [address], [place] [address] May, [facility] [address] [id number] [address] [place] [address] Apr, [facility] [address] [id number] [address] [place] [address], [place] [address] Apr, [facility] [address] [id number] [address] [place] [address], [place] [address] Apr, [facility] [address] [id number] [address] [place] [address], [place] [address] Apr, [facility] [address] [id number] [address] [place] [address], [place] [address] 08 Mar, 2013 [facility] [address] [id number] [address] [place] [address], [place] [address] 23 Feb, 2012 [facility] [address] [id number] [address] [place] [address], [place] [address] 16 Feb, 2012 [facility] [address] [id number] [address] [place] [address], [place] [address] 13 Feb, 2012 [facility] [address] [id number] [address] [place] [address], [place] [address] 10 Feb, 2012 [facility] [address] [id number] [address] [place] [address], [place] [address] 09 Feb, 2013 [facility] [address] [id number] [address] [place] [address], [place] [address] 09 Feb, 2013 [facility] [address] [id number] [address] [place] [address], [place] [address] Jan, [facility] [address] [id number] [address] [place] [address], [place] [address] Jan, [facility] [address] [id number] [address] [place] [address], [place] [address] Jan, [facility] [address] [id number] [address] [place] [address], [place] [address] Dec, [facility] [address] [id number] [address] [place] [address], [place] [address] Dec, [facility] [address] [id number] [address] [place] [address], [place] [address] Dec, [facility] [address] [id number] [address] [place] [address], [place] [address] 15 Dec, 2012 [facility] [address] [id number] [address] [place] [address], [place] [address] Dec, [facility] [address] [id number] [address] [place] [address], [place] [address] Nov, [facility] [address] [id number] [address] [place] [address], [place] [address] 26 Nov, 2012 [facility] [address] [id number] [address] [place] [address], [place] [address] 20 Nov, 2012 [facility] [address] [id number] [address] [place] [address], [place] [address] 13 Nov, 2012 [facility] [address] [id number] [address] [place] [address], [place] [address] Nov, [facility] [address] [id number] [address] [place] [address], [place] [address] 08 Nov, 2012 [facility] [address] [id number] [address] [place] [address], [place] [address] 07 Nov, 2012 [facility] [address] [id number] [address] [place] [address], [place] [address] 06 Nov, 2012 [facility] [address] [id number] [address] [place] [address], [place] [address] 05 Nov, 2012 [facility] [address] [id number] [address] [place] [address], [place] [address] Nov, [facility] [address] [id number] [address] [place] [address], [place] [address] October, [facility] [address] [id number] [address] [place] [address], [place] [address] October, [facility] [address] [id number] [address] [place] [address], [place] [address] Sep, [facility] [address] [id number] [address] [place] [address], [place] [address] Sep, [facility] [address] [id number] [address] [place] [address], [place] [address] Sep, [facility] [address] [id number] [address] [place] [address], [place] [address] 06 Sep, 2012 [facility] [address] [id number] [address] [place] [address], [place] [address] Sep, [facility] [address] [id number] [address] [place] [address], [place] [address] Aug, [facility] [address] [id number] [address] [place] [address], [place] [address] Aug, [facility] [address] [id number] [address] [place] [address], [place] [address] Jul, [facility] [address] [id number] [address] [place] [address], [place] [address] Jul, [facility] [address] [id number] [address] [place] [address], [place] [address] Jun, [facility] [address] [id number] [address] [place] [address], [place] [address] Jun, [facility] [address] [id number] [address] [place] [address], [place] [address] May, [facility] [address] [id number] [address] [place] [address], [place] [address] May, [facility] [address] [id number] [address] [place] [address], [place] [address] May, [facility] [address] [id number] [address] [place] [address], [place] [address] May, [facility] [address] [id number] [address] [place] [address], [place] [address] Apr, [facility] [address] [id number] [address] [place] [address], [place] [address] Apr, [facility] [address] [id number] [address] [place] [address], [place] [address] Apr, [facility] [address] [id number] [address] [place] [address], [place] [address] Apr, [facility] [address] [id number] [address] [place] [address], [place] [address] Apr, [facility] [address] [id number] [address] [place] [address], [place] [address] 14 Apr, 2012 [facility] [address] [id number] [address] [place] [address], [place] [address] 14 Apr, 2012 [facility] [address] [id number] [address] [place] [address], [place] [address] Apr, [facility] [address] [id number] [address] [place] [address], [place] [address] Apr, [facility] [address] [id number] [address] [place] [address], [place] [address] 15 Mar, 2012 [facility] [address] [id number] [address] [place] [address], [place] [address] Mar, [facility] [address] [id number] [address] [place] [address], [place] [address] Feb, [facility] [address] [id number] [address] [place] [address], [place] [address] Jan, [facility] [address] [id number] [address] [place] [address], [place] [address] Jan, [facility] [address] [id number] [address] [place] [address], [place] [address] Dec, [facility] [address] [id number] [address] [place] [address], [place] [address] Nov, [facility] [address] [id number] [address] [place] [address], [place] [address] Nov, [facility] [address] [id number] [address] [place] [address], [place] [address] October, [facility] [address] [id number] [address] [place] [address], [place] [address] October, [facility] [address] [id number] [address] [place] [address], [place] [address] Sep, [facility] [address] [id number] [address] [place] [address], [place] [address] Sep, [facility] [address] [id number] [address] [place] [address] May, [facility] [address] [id number] [address] [place] [address] Apr, [facility] [address] [id number] [address] [place] [address] Apr, [facility] [address] [id number] [address] [place] [address] Apr, [facility] [address] [id number] [address] [place] [address] Apr, [facility] [address] [id number] [address] [place] [address] Apr, [facility] [address] [id number] [address] [place] [address] Apr, [facility] [address] [id number] [address] [place] [address] Apr, [facility] [address] [id number] [address] [place] [address] Apr, [facility] [address] [id number] [address] [place] [address] Mar, [facility] [address] [id number] [address] [place] [address] Mar, [facility] [address] [id number] [address] [place] [address] Mar, [facility] [address] [id number] [address] [place] [address] Mar, [facility] [address] [id number] [address] [place] [address] Mar, [facility] [address] [id number] [address] [place] [address] Mar, IMMUNIZATIONS No Known Immunizations SOCIAL HISTORY [...] Stomach surgeryx3 Hospitalization History Mental floor at [facility]
--- OUTSIDE RECORDS SUMMARY | 2019-12-24 20:00 | XMS REPORT ---
Author Author Trey POLK Organization [facility] Address [address] [place] [address] Care Team Providers Care Hiv Prevention Specialist Name Role Phone SYBIL POLK Unavailable PROBLEMS Type Condition ICD9-CM Code LMR99-YH Code Onset Dates Condition S tatus SNOMED Code Problem Nondependent 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 Ac tive 875380765 Problem Other chronic pain G89.29 Active 1 82990811 Problem Unspecified epilepsy without mention of intractable ep ilepsy G40.909 Active 41262046 Problem Hyperlipidemia, unspecified E78.5 Ac tive 10458033 Problem Hypertension I10 Active 4767322 3 Problem Esophageal reflux K21.9 Active 23 6671094 Problem Rheumatoid arthritis M06.9 Active 92066662 Problem Cough R05 Active 65651982 Problem Acquired hypothyroidism E03.9 Active 899630866 Problem Unspecified open-angle glaucoma, stage unspecified H40.10X0 Feb, Active 87883485 Problem Presbyopia H52.4 Active 51019468 Problem Insomnia G47.00 Active 196210241 Problem Arthralgia M25.50 Active 82813386 Problem Thyroid nodule E04.1 Active 37888 5005 Problem Anxiety disorder, unspecified F41.9 Active 426316838 Problem Chronic tension-type headache, intractable G44.221 Active 269544958 Problem Neuropathy G62.9 Active 212203464 Problem Goiter E04.9 Active 5792511 Problem Multinodular goiter E04.2 Active 597892655 Problem Carpal tunnel syndrome of left wrist G56.02 Active 520608026909589 Problem Chronic obstructive pulmonary disease, unspecified COPD ty pe J44.9 Active 93917405 Problem BMI 40.0-44.9, adult Z68.41 Active 156353932 Problem Seasonal allergic rhinitis due to pollen J30.1 Active 91046546 Problem Depression F32.9 Active 15561480 Problem Essential hypertension I10 Active 11889308 Problem Depressive disorder F32.9 Active 59872953 Problem Right-sided low back pain without sciatica M54.5 Active 654578047 Problem Reactive airway disease with out complication, unspecified asthma severity, unspecified whether persistent J45.909 Active 115596222362 Problem Urge incontinence of urine N39.41 Act chen 36502546 Problem Abnormal laboratory test R89.9 Activ e 502324391 Problem COPD with exacerbation J44.1 Active 104812001 ALLERGIES No Information ENCOUNTERS Encounter Location Date Diagnosis [place] [address] [address] October, Acquired hypothyroidism E03. [address] [address] October, Acute gastritis without hemo rrhage, unspecified gastritis type K29.00 ; Epigastric pain R10.13 ; Essential hypertension I10 ; Screening for colon cancer Z12.11 and BMI 40.0-44.9, adult Z68.41 [place] [address] [address] October, [facility] [address] [address] October, Chest pain R07.9 and Morbid obesity E66.01 [facility] [address] [address] Sep, Generalized abdominal pain R 10.84 ; Morbid obesity E66.01 ; Non-intractable vomiting with nausea, unspecified vomiting type R11.2 and Seasonal allergic rhinitis due to pollen J30.1 [facility] [place] [address] [address] Jul, COPD with exacerbation J44.1 ; Viral upper respiratory tract infection J06.9 and Morbid obesity E66.01 [facility] [place] [address] [address] Jun, Viral upper respiratory trac t infection J06.9 [place] [address] [address] Apr, Abnormal laboratory test R89 .9 [facility] [address] [facility] [id number] [address] [place] [address] Apr, Abnormal laboratory test R89 .9 [facility] [address] [place] [id number] [address] [place] [address] Apr, Abnormal laboratory test R89 .9 [facility] [address] [place] [id number] [address] [place] [address] Apr, [place] [address] [place] [id number] [address] [place] [address] Apr, [place] [address] [address] Apr, Nonintractable episodic head ache, unspecified headache type R51 ; Urge incontinence of urine N39.41 ; BMI 40.0-44.9, adult Z68.41 ; Myalgia M79.10 and Acute cystitis without hematuria N30.00 [place] [address] [place] [id number] [place] [address] Mar, Nasal congestion R09.81 ; Lo w back pain M54.5 ; Reactive airway disease without complication, unspecified asthma severity, unspecified whether persistent J45.909 ; Other chronic pain G89.29 ; Acute cystitis with hematuria N30.01 and BMI 40.0-44.9, adult Z68.41 [facility] [address] [place] [id number] [address] [place] [address] Mar, Acute cystitis with hematuri a N30.01 [facility] [address] [place] [id number] [address] [place] [address] Mar, BMI 40.0-44.9, adult Z68.41 ; Acute cystitis with hematuria N30.01 ; Acute bilateral low back pain without sciatica M54.5 and Nausea R11.0 [facility] [address] [place] [id number] [address] [place] [address] Mar, Hypertension I10 ; Acquired hypothyroidism E03.9 ; Esophageal reflux K21.9 ; Chronic obstructive pulmonary disease, unspecified COPD type J44.9 and BMI 40.0-44.9, adult Z68.41 [place] [address] [address] Mar, Hypertension I10 [place] [address] [address] Nov, Hyperlipidemia, unspecified E78.5 [place] [address] [address] October, Chest pain, unspecified type R07.9 and Acquired hypothyroidism E03.9 [place] [address] [address] October, Chest pain, unspecified type R07.9 ; Family history of coronary artery disease Z82.49 ; Carpal tunnel syndrome of left wrist G56.02 ; Hypertension I10 ; Esophageal reflux K21.9 ; Arthralgia M25.50 ; Acquired hypothyroidism E03.9 ; Cough R05 ; Nausea R11.0 ; Weight gain R63.5 and BMI 45.0-49.9, adult Z68.42 [place] [address] [address] Jun, Acquired hypothyroidism E03. 9 and Cough R05 [place] [address] [address] May, [place] [address] [address] Feb, Tarsal tunnel syndrome of timi th lower extremities G57.53 and Neuropathy G62.9 [place] [address] [address] Dec, Pleuritis R09.1 [place] [address] [address] Nov, [place] [address] [place] [address] October, Arthralgia, unspecified join t M25.50 and Allergy, initial encounter T78.40XA [place] [address] [place] [address] October, [place] [address] [address] October, Acute recurrent maxillary si nusitis J01.01 and Arthralgia M25.50 [place] [address] [address] Sep, Pharyngitis due to other org anism J02.8 [place] [address] [address] Aug, Acute nasopharyngitis J00 [place] [address] [address] Aug, Multinodular goiter E04.2 [place] [address] [address] Aug, Thyroid nodule E04.1 [place] [address] [address] Jul, Tarsal tunnel syndrome of timi th lower extremities G57.53 [place] [address] [address] Jun, Pneumonia due to infectious organism, unspecified laterality, unspecified part of lung J18.9 [place] [address] [address] Jun, Bronchospasm with bronchitis , acute J20.9 [place] [address] [place] [id number] [address] [place] [address] May, Acute non-recurrent frontal sinusitis J01.10 [place] [address] [address] May, Flat foot [pes planus] (acqu ired), left foot M21.42 ; Flat foot [pes planus] (acquired), right foot M21.41 and Neuropathy G62.9 [place] [address] [address] Apr, Chronic tension-type headach e, intractable G44.221 ; Right lower quadrant abdominal pain R10.31 ; Cervicalgia M54.2 ; Acute gastritis without hemorrhage, unspecified gastritis type K29.00 and Hypertension I10 [place] [address] [address] Mar, Depression F32.9 and Anxiety disorder, unspecified F41.9 [place] [address] [address] Feb, Depressive disorder F32.9 an d Anxiety disorder, unspecified F41.9 [place] [address] [address] Jan, Dysuria R30.0 ; Lower abdomi nal pain R10.30 ; Acute bilateral low back pain without sciatica M54.5 ; Nausea and vomiting, unspecified intactability, vomiting of unspecified type R11.2 ; Pain in right foot M79.671 and Pain of left foot M79.672 [place] [address] [address] Dec, Urinary tract infection, sit e not specified N39.0 [place] [address] [address] Dec, [place] [address] [address] Nov, [place] [address] [address] Nov, Dysuria R30.[address] [address] Nov, Dysuria R30.0 and Acute cyst itis with hematuria N30.01 [facility] [address] [address] October, Nausea R11.0 [facility] [address] [place] [id number] [place] [address] October, Thyroid nodule E04.1 ; Carpa l tunnel syndrome, left upper limb G56.02 ; Carpal tunnel syndrome, right upper limb G56.01 and Constipation, unspecified constipation type K59.00 [facility] [address] [address] October, [place] [address] [address] October, Thyroid nodule E04.1 [place] [address] [address] October, Cold thyroid nodule E04.1 [place] [address] [address] October, [place] [address] [address] Sep, Thyroid nodule E04.1 [place] [address] [address] Sep, Thyroid nodule E04.1 [place] [address] [address] Sep, Thyroid nodule E04.1 ; Hyper tension I10 ; Esophageal reflux K21.9 and Hyperlipidemia, unspecified E78.5 [place] [address] [address] Aug, Other chronic pain G89.29 ; Sinusitis J32.9 and Hypertension I10 [place] [address] [place] [id number] [place] [address] Jul, [place] [address] [facility] [id number] [address] [place] [address] 15 Jul, 2015 [facility] [address] [place] [id number] [address] [place] [address] 10 Jul, 2015 Insomnia G47.00 and Arthralg ia M25.50 [facility] [address] [place] [id number] [address] [place] [address] 10 Jul, 2015 Depressive disorder F32.9 an d Anxiety disorder, unspecified F41.9 [facility] [address] [facility] [id number] [address] [place] [address] May, Right-sided low back pain wi thout sciatica M54.5 and Depression F32.9 [place] [address] [place] [id number] [place] [address] Apr, Hematuria R31.9 [place] [address] [address] Mar, Other chronic pain G89.29 [place] [address] [place] [id number] [place] [address] Mar, Other chronic pain G89.29 [facility] [address] [place] [id number] [address] [place] [address] Feb, [facility] [address] [place] [id number] [address] [place] [address] Feb, Other chronic pain 338.29 ; Dysuria 788.1 ; UTI (urinary tract infection) 599.0 ; Insomnia 780.52 ; Hot flashes 627.2 and Hypertension 401.9 [facility] [address] [facility] [id number] [address] [place] [address] 14 Feb, 2015 Dysuria 788.1 [facility] [address] [place] [id number] [address] [place] [address] 02 Feb, 2015 [facility] [address] [place] [id number] [place] [address] Jan, [facility] [address] [id number] [address] [place] [address] Jan, [facility] [address] [id number] [address] [place] [address] Jan, Fibromyalgia 729.1 ; Hyperte nsion 401.9 ; Dysthymia 300.4 and Hot flashes 627.2 [facility] [address] [id number] [address] [place] [address] Dec, [facility] [address] [id number] [address] [place] [address] Dec, [facility] [address] [id number] [address] [place] [address] Dec, [facility] [address] [id number] [address] [place] [address] Nov, Other chronic pain 338.29 [facility] [address] [id number] [address] [place] [address] October, [facility] [address] [id number] [address] [place] [address] October, [facility] [address] [id number] [address] [place] [address] Sep, [facility] [address] [id number] [address] [place] [address] Sep, [facility] [address] [id number] [address] [place] [address] Aug, [facility] [address] [id number] [address] [place] [address] Aug, [facility] [address] [id number] [address] [place] [address] Aug, [facility] [address] [id number] [address] [place] [address] Aug, [facility] [address] [id number] [address] [place] [address] Aug, [facility] [address] [id number] [address] [place] [address], [place] [address] Aug, [facility] [address] [id number] [address] [place] [address], [place] [address] Aug, [facility] [address] [id number] [address] [place] [address], [place] [address] Aug, [facility] [address] [id number] [address] [place] [address], [place] [address] Aug, [facility] [address] [id number] [address] [place] [address], [place] [address] Aug, [facility] [address] [id number] [address] [place] [address], [place] [address] Aug, [facility] [address] [id number] [address] [place] [address], [place] [address] Aug, [facility] [address] [id number] [address] [place] [address], [place] [address] Aug, [facility] [address] [id number] [address] [place] [address], [place] [address] Aug, [facility] [address] [id number] [address] [place] [address], [place] [address] Jul, [facility] [address] [id number] [address] [place] [address], [place] [address] Jul, 2014 [facility] [address] [id number] [address] [place] [address], [place] [address] Jul, 2014 [facility] [address] [id number] [address] [place] [address], [place] [address] Jul, 2014 [facility] [address] [id number] [address] [place] [address], [place] [address] Jul, 2014 [facility] [address] [id number] [address] [place] [address] 12 Jul, 2014 [facility] [address] [id number] [address] [place] [address], [place] [address] Jun, [facility] [address] [id number] [address] [place] [address], [place] [address] Jun, [facility] [address] [id number] [address] [place] [address], [place] [address] Jun, [facility] [address] [id number] [address] [place] [address], [place] [address] Jun, [facility] [address] [id number] [address] [place] [address], [place] [address] May, [facility] [address] [id number] [address] [place] [address], [place] [address] May, [facility] [address] [id number] [address] [place] [address], [place] [address] May, [facility] [address] [id number] [address] [place] [address], [place] [address] May, [facility] [place] [address] [id number] [address] [place] [address], [place] [address] May, [facility] [address] [id number] [address] [place] [address], [place] [address] May, [facility] [address] [id number] [address] [place] [address], [place] [address] May, [facility] [address] [id number] [address] [place] [address], [place] [address] May, [facility] [address] [id number] [address] [place] [address], [place] [address] May, [facility] [address] [id number] [address] [place] [address], [place] [address] May, [facility] [address] [id number] [address] [place] [address], [place] [address] Apr, [facility] [address] [id number] [address] [place] [address] Apr, [facility] [address] [id number] [address] [place] [address], [place] [address] Apr, [facility] [address] [id number] [address] [place] [address] Apr, [facility] [address] [id number] [address] [place] [address], [place] [address] Apr, [facility] [address] [id number] [address] [place] [address] Apr, [facility] [address] [id number] [address] [place] [address], [place] [address] Apr, [facility] [address] [id number] [address] [place] [address], [place] [address] Apr, [facility] [address] [id number] [address] [place] [address], [place] [address] Apr, [facility] [address] [id number] [address] [place] [address] Mar, [facility] [address] [id number] [address] [place] [address] Mar, [facility] [address] [id number] [address] [place] [address], [place] [address] Mar, [facility] [address] [id number] [address] [place] [address] Mar, [facility] [address] [id number] [address] [place] [address] Mar, [facility] [address] [id number] [address] [place] [address] Mar, [facility] [address] [id number] [address] [place] [address] Mar, [facility] [address] [id number] [address] [place] [address] Mar, [facility] [address] [id number] [facility] [place] [address] 30 Sep, 2013 [facility] [address] [id number] [facility] [place] [address] 30 Sep, 2013 [facility] [address] [id number] [facility] [place] [address] 24 Sep, 2013 [facility] [address] [id number] [address] [place] [address], [place] [address] 24 Sep, 2013 [facility] [address] [id number] [address] [place] [address], [place] [address] 22 Sep, 2013 [facility] [address] [id number] [address] [place] [address], [place] [address] 22 Sep, 2013 [facility] [address] [id number] [address] [place] [address], [place] [address] 10 Sep, 2013 [facility] [address] [id number] [address] [place] [address], [place] [address] 10 Sep, 2013 [facility] [address] [id number] [address] [place] [address], [place] [address] 03 Sep, 2013 [facility] [address] [id number] [address] [place] [address], [place] [address] 03 Sep, 2013 [facility] [address] [id number] [address] [place] [address], [place] [address] 03 Sep, 2013 [facility] [address] [id number] [address] [place] [address], [place] [address] 03 Sep, 2013 [facility] [address] [id number] [address] [place] [address], [place] [address] 03 Sep, 2013 [facility] [address] [id number] [address] [place] [address], [place] [address] 03 Feb, 2013 [facility] [address] [id number] [address] [place] [address], [place] [address] Jan, 2013 [facility] [address] [id number] [address] [place] [address], [place] [address] Jan, [facility] [address] [id number] [address] [place] [address], [place] [address] Dec, [facility] [address] [id number] [address] [place] [address], [place] [address] Dec, [facility] [address] [id number] [address] [place] [address], [place] [address] Dec, [facility] [address] [id number] [address] [place] [address], [place] [address] Dec, [facility] [address] [id number] [address] [place] [id number], [place] [id number] Dec, [facility] [address] [id number] [address] [place] [address], [place] [address] Dec, [facility] [address] [id number] [address] [place] [address], [place] [address] Dec, [facility] [address] [id number] [address] [place] [address], [place] [address] Dec, [facility] [address] [id number] [address] [place] [address], [place] [address] Dec, [facility] [address] [id number] [address] [place] [address], [place] [address] Dec, [facility] [address] [id number] [address] [place] [address], [place] [address] Dec, [facility] [address] [id number] [address] [place] [address], [place] [address] Dec, [facility] [address] [id number] [address] [place] [address], [place] [address] Dec, [facility] [address] [id number] [address] [place] [address], [place] [address] Dec, [facility] [address] [id number] [address] [place] [address], [place] [address] Dec, [facility] [address] [id number] [address] [place] [address], [place] [id number] Dec, [facility] [address] [id number] [address] [place] [address], [place] [address] Dec, [facility] [address] [id number] [address] [place] [address], [place] [address] Dec, [facility] [address] [id number] [address] [place] [address], [place] [id number] Dec, [facility] [address] [id number] [address] [place] [address], [place] [address] Nov, [facility] [address] [id number] [address] [place] [address], [place] [address] Nov, [facility] [address] [id number] [address] [place] [address], [place] [address] Nov, [facility] [address] [id number] [address] [place] [address], [place] [address] Nov, [facility] [address] [id number] [address] [place] [address], [place] [address] Nov, [facility] [address] [id number] [address] [place] [address], [place] [address] Nov, [facility] [address] [id number] [address] [place] [address], [place] [address] Nov, [facility] [address] [id number] [address] [place] [address], [place] [address] Nov, [facility] [address] [id number] [address] [place] [address], [place] [address] Nov, [facility] [address] [id number] [address] [place] [address], [place] [address] October, [facility] [address] [id number] [address] [place] [address], [place] [address] October, [facility] [address] [id number] [address] [place] [address], [place] [address] October, [facility] [address] [id number] [facility] [place] [address] October, [facility] [address] [id number] [facility] [place] [address] October, [facility] [address] [id number] [address] [place] [address], [place] [address] October, [facility] [address] [id number] [address] [place] [address], [place] [address] October, [facility] [address] [id number] [address] [place] [address], [place] [address] October, [facility] [address] [id number] [address] [place] [address], [place] [address] Sep, [facility] [address] [id number] [address] [place] [address], [place] [address] Sep, [facility] [address] [id number] [address] [place] [address], [place] [address] Sep, [facility] [address] [id number] [address] [place] [address], [place] [address] Sep, [facility] [address] [id number] [address] [place] [address], [place] [address] Sep, [facility] [address] [id number] [address] [place] [address], [place] [address] Sep, [facility] [address] [id number] [address] [place] [address], [place] [address] Sep, [facility] [address] [id number] [address] [place] [address], [place] [address] Aug, [facility] [address] [id number] [address] [place] [address], [place] [address] Aug, [facility] [address] [id number] [address] [place] [address], [place] [address] Aug, [facility] [address] [id number] [address] [place] [address], [place] [address] Aug, [facility] [address] [id number] [address] [place] [address], [place] [address] Aug, [facility] [address] [id number] [address] [place] [address], [place] [address] Aug, [facility] [address] [id number] [address] [place] [address], [place] [address] Jul, [facility] [address] [id number] [address] [place] [address], [place] [address] Jul, [facility] [address] [id number] [address] [place] [address], [place] [address] Jul, [facility] [address] [id number] [address] [place] [address], [place] [address] Jul, [facility] [address] [id number] [address] [place] [address], [place] [address] Jul, [facility] [address] [id number] [address] [place] [address], [place] [address] Jul, [facility] [address] [id number] [address] [place] [address], [place] [address] Jun, [facility] [address] [id number] [address] [place] [address], [place] [address] Jun, [facility] [address] [id number] [address] [place] [address], [place] [address] Jun, [facility] [address] [id number] [address] [place] [address], [place] [address] Jun, [facility] [address] [id number] [address] [place] [address], [place] [address] Jun, [facility] [address] [id number] [address] [place] [address], [place] [address] Jun, [facility] [address] [id number] [address] [place] [address], [place] [address] Jun, [facility] [address] [id number] [address] [place] [address], [place] [address] Jun, [facility] [address] [id number] [address] [place] [address], [place] [address] Jun, [facility] [address] [id number] [address] [place] [address], [place] [address] 14 Jun, 2013 [facility] [address] [id number] [address] [place] [address], [place] [address] Jun, [facility] [address] [id number] [address] [place] [address], [place] [address] Jun, [facility] [address] [id number] [address] [place] [address], [place] [address] Jun, [facility] [address] [id number] [address] [place] [address], [place] [address] 30 May, 2013 [facility] [address] [id number] [address] [place] [address], [place] [address] 30 May, 2013 [facility] [address] [id number] [address] [place] [address], [place] [address] 30 May, 2013 [facility] [address] [id number] [address] [place] [address], [place] [address] May, [facility] [address] [id number] [address] [place] [address], [place] [address] May, [facility] [address] [id number] [address] [place] [address], [place] [address] 14 May, 2013 [facility] [address] [id number] [address] [place] [address], [place] [address] 14 May, 2013 [facility] [address] [id number] [address] [place] [address], [place] [address] May, [facility] [address] [id number] [address] [place] [address], [place] [address] May, [facility] [address] [id number] [address] [place] [address], [place] [address] May, [facility] [address] [id number] [address] [place] [address], [place] [address] May, [facility] [address] [id number] [address] [place] [address], [place] [address] May, [facility] [address] [id number] [address] [place] [address], [place] [address] May, [facility] [address] [id number] [address] [place] [address], [place] [address] May, [facility] [address] [id number] [address] [place] [address], [place] [address] May, [facility] [address] [id number] [address] [place] [address], [place] [address] May, [facility] [address] [id number] [address] [place] [address], [place] [address] May, [facility] [address] [id number] [address] [place] [address], [place] [address] May, [facility] [address] [id number] [address] [place] [address], [place] [address] May, [facility] [address] [id number] [address] [place] [address], [place] [address] May, [facility] [address] [id number] [address] [place] [address], [place] [address] May, [facility] [address] [id number] [address] [place] [address] Apr, [facility] [address] [id number] [address] [place] [address], [place] [address] Apr, [facility] [address] [id number] [address] [place] [address], [place] [address] Apr, [facility] [address] [id number] [address] [place] [address], [place] [address] Apr, [facility] [address] [id number] [address] [place] [address], [place] [address] 08 Mar, 2013 [facility] [address] [id number] [address] [place] [address], [place] [address] 23 Feb, 2012 [facility] [address] [id number] [address] [place] [address], [place] [address] 16 Feb, 2012 [facility] [address] [id number] [address] [place] [address], [place] [address] 13 Feb, 2012 [facility] [address] [id number] [address] [place] [address], [place] [address] 10 Feb, 2012 [facility] [address] [id number] [address] [place] [address], [place] [address] 09 Feb, 2013 [facility] [address] [id number] [address] [place] [address], [place] [address] 09 Feb, 2013 [facility] [address] [id number] [address] [place] [address], [place] [address] Jan, [facility] [address] [id number] [address] [place] [address], [place] [address] Jan, [facility] [address] [id number] [address] [place] [address], [place] [address] Jan, [facility] [place] [address] [id number] [address] [place] [address], [place] [address] Dec, [facility] [address] [id number] [address] [place] [address], [place] [address] Dec, [facility] [address] [id number] [address] [place] [address], [place] [address] Dec, [facility] [address] [id number] [address] [place] [address], [place] [address] 15 Dec, 2012 [facility] [address] [id number] [address] [place] [address], [place] [address] Dec, [facility] [address] [id number] [address] [place] [address], [place] [address] Nov, [facility] [address] [id number] [address] [place] [address], [place] [address] 26 Nov, 2012 [facility] [address] [id number] [address] [place] [address], [place] [address] 20 Nov, 2012 [facility] [address] [id number] [address] [place] [address], [place] [address] 13 Nov, 2012 [facility] [address] [id number] [address] [place] [address], [place] [address] Nov, [facility] [address] [id number] [address] [place] [address], [place] [address] 08 Nov, 2012 [facility] [address] [id number] [address] [place] [address], [place] [address] 07 Nov, 2012 [facility] [address] [id number] [address] [place] [address], [place] [address] 06 Nov, 2012 [facility] [address] [id number] [address] [place] [address], [place] [address] 05 Nov, 2012 [facility] [address] [id number] [address] [place] [address], [place] [address] Nov, [facility] [address] [id number] [address] [place] [address], [place] [address] October, [facility] [address] [id number] [address] [place] [address], [place] [address] October, [facility] [address] [id number] [address] [place] [address], [place] [address] Sep, [facility] [address] [id number] [address] [place] [address], [place] [address] Sep, [facility] [address] [id number] [address] [place] [address], [place] [address] Sep, [facility] [address] [id number] [address] [place] [address], [place] [address] 06 Sep, 2012 [facility] [address] [id number] [address] [place] [address], [place] [address] Sep, [facility] [address] [id number] [address] [place] [address], [place] [address] Aug, [facility] [address] [id number] [address] [place] [address], [place] [address] Aug, [facility] [address] [id number] [address] [place] [address], [place] [address] Jul, [facility] [address] [id number] [address] [place] [address], [place] [address] Jul, [facility] [address] [id number] [address] [place] [address], [place] [address] Jun, [facility] [address] [id number] [address] [place] [address], [place] [address] Jun, [facility] [address] [id number] [address] [place] [address], [place] [address] May, [facility] [address] [id number] [address] [place] [address], [place] [address] May, [facility] [address] [id number] [address] [place] [address], [place] [address] May, [facility] [address] [id number] [address] [place] [address], [place] [address] May, [facility] [address] [id number] [address] [place] [address], [place] [address] Apr, [facility] [address] [id number] [address] [place] [address], [place] [address] Apr, [facility] [address] [id number] [address] [place] [address], [place] [address] Apr, [facility] [address] [id number] [address] [place] [address], [place] [address] Apr, [facility] [address] [id number] [address] [place] [address], [place] [address] Apr, [facility] [address] [id number] [address] [place] [address], [place] [address] 14 Apr, 2012 [facility] [address] [id number] [address] [place] [address], [place] [address] 14 Apr, 2012 [facility] [address] [id number] [address] [place] [address], [place] [address] Apr, [facility] [address] [id number] [address] [place] [address], [place] [address] Apr, [facility] [address] [id number] [address] [place] [address], [place] [address] 15 Mar, 2012 [facility] [address] [id number] [address] [place] [address], [place] [address] Mar, [facility] [address] [id number] [address] [place] [address], [place] [address] Feb, [facility] [address] [id number] [address] [place] [address], [place] [address] Jan, [facility] [address] [id number] [address] [place] [address], [place] [address] Jan, [facility] [address] [id number] [address] [place] [address], [place] [address] Dec, [facility] [address] [id number] [address] [place] [address], [place] [address] Nov, [facility] [address] [id number] [address] [place] [address], [place] [address] Nov, [facility] [address] [id number] [address] [place] [address], [place] [address] October, [facility] [address] [id number] [address] [place] [address], [place] [address] October, [facility] [address] [id number] [address] [place] [address], [place] [address] Sep, [facility] [address] [id number] [address] [place] [address], [place] [address] Sep, [facility] [address] [id number] [address] [place] [address] May, [facility] [address] [id number] [address] [place] [address] Apr, [facility] [address] [id number] [address] [place] [address] Apr, [facility] [address] [id number] [address] [place] [address] Apr, [facility] [address] [id number] [address] [place] [address] Apr, [facility] [address] [id number] [address] [place] [address] Apr, [facility] [address] [id number] [address] [place] [address] Apr, [facility] [address] [id number] [address] [place] [address] Apr, [facility] [address] [id number] [address] [place] [address] Apr, [facility] [address] [id number] [address] [place] [address] Mar, [facility] [address] [id number] [address] [place] [address] Mar, [facility] [address] [id number] [address] [place] [address] Mar, [facility] [address] [id number] [address] [place] [address] Mar, [facility] [address] [id number] [address] [place] [address] Mar, [facility] [address] [id number] [address] [place] [address] Mar, IMMUNIZATIONS No Known Immunizations SOCIAL HISTORY Never Assessed REASON FOR VISIT PLAN OF CARE VITAL SIGNS MEDICATIONS Unknown Medications RESULTS No Results PROCEDURES Procedure Date Ordered Result Body Site PSYTX PT&/FAMILY 45 MINUTES Jul 25, 2014 INSTRUCTIONS MEDICATIONS ADMINISTERED No Known Medications MEDICAL (GENERAL) HISTORY Type Description Date Medical History HTN Medical History Depression Medical History Arthritis Medical History COPD Surgical History Breast lump removed Surgical History Removal of cyst from ovary Surgical History cholecystectomy Surgical History Stomach surgeryx3 Hospitalization History Mental floor at [facility]
--- OUTSIDE RECORDS SUMMARY | 2019-12-24 20:01 | XMS REPORT ---
Author Author Deann Trey Doctor Organization [facility] Address Unknown Phone Unavailable Care Team Providers Care Direct Care Provider Name Role Phone Migration, Doctor Unavailable Unavailable PROBLEMS Type Condition ICD9-CM Code [id number] Code Onset Dates Condition S tatus SNOMED Code Problem Unspecified open-angle glaucoma, stage unspecified H40.10X0 Feb, Active 75415489 Problem Unspecified epilepsy without mention of intractable ep ilepsy G40.909 Active 11881802 Problem Nondependent 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 Ac tive 069830009 Problem Hypertension I10 Active 0328735 3 Problem Other chronic pain G89.29 Active 1 74743629 Problem Rheumatoid arthritis M06.9 Active 28895016 Problem Hyperlipidemia, unspecified E78.5 Ac tive 90962749 Problem Acquired hypothyroidism E03.9 Active 086490443 Problem Goiter E04.9 Active 4597955 Problem Presbyopia H52.4 Active 36310591 Problem Arthralgia M25.50 Active 64914249 Problem Right-sided low back pain without sciatica M54.5 Active 746337793 Problem Anxiety disorder, unspecified F41.9 Active 473150612 Problem Insomnia G47.00 Active 860970578 Problem Neuropathy G62.9 Active 887988282 Problem Thyroid nodule E04.1 Active 01331 5005 Problem Multinodular goiter E04.2 Active 230856914 Problem Chronic tension-type headache, intractable G44.221 Active 434555921 Problem Cough R05 Active 51069083 Problem Carpal tunnel syndrome of left wrist G56.02 Active 455600679458251 Problem Chronic obstructive pulmonary disease, unspecified COPD ty pe J44.9 Active 87681424 Problem COPD with exacerbation J44.1 Active 651084881 Problem Depressive disorder F32.9 Active 46172438 Problem Seasonal allergic rhinitis due to pollen J30.1 Active 29776995 Problem Esophageal reflux K21.9 Active 23 3940563 Problem Depression F32.9 Active 24883900 Problem BMI 40.0-44.9, adult Z68.41 Active 726519864 Problem Reactive airway disease with out complication, unspecified asthma severity, unspecified whether persistent J45.909 Active 295551000285 Problem Urge incontinence of urine N39.41 Act chen 93076939 Problem Abnormal laboratory test R89.9 Activ e [id number] ALLERGIES No Information ENCOUNTERS Encounter Location Date Diagnosis [facility] [address] [address] October, [facility] [address] [address] October, [facility] [address] [address] October, Chest pain R07.9 and Morbid obesity E66.01 [facility] [place] [address] [address] Sep, Generalized abdominal pain R 10.84 ; Morbid obesity E66.01 ; Non-intractable vomiting with nausea, unspecified vomiting type R11.2 and Seasonal allergic rhinitis due to pollen J30.1 [facility] [address] [address] Jul, COPD with exacerbation J44.1 ; Viral upper respiratory tract infection J06.9 and Morbid obesity E66.01 [facility] [address] [address] Jun, Viral upper respiratory trac t infection J06.9 [facility] [address] [place] [id number] [place] [address] Apr, Abnormal laboratory test R89 .9 [place] [address] [place] [id number] [place] [address] Apr, Abnormal laboratory test R89 .9 [place] [address] [place] [id number] [place] [address] Apr, Abnormal laboratory test R89 .9 [place] [address] [place] [id number] [place] [address] Apr, [place] [address] [address] Apr, [place] [address] [address] Apr, Nonintractable episodic head ache, unspecified headache type R51 ; Urge incontinence of urine N39.41 ; BMI 40.0-44.9, adult Z68.41 ; Myalgia M79.10 and Acute cystitis without hematuria N30.00 [place] [address] [address] Mar, Nasal congestion R09.81 ; Lo w back pain M54.5 ; Reactive airway disease without complication, unspecified asthma severity, unspecified whether persistent J45.909 ; Other chronic pain G89.29 ; Acute cystitis with hematuria N30.01 and BMI 40.0-44.9, adult Z68.[address] [address] Mar, Acute cystitis with hematuri a N30.01 [facility] [address] [address] Mar, BMI 40.0-44.9, adult Z68.41 ; Acute cystitis with hematuria N30.01 ; Acute bilateral low back pain without sciatica M54.5 and Nausea R11.[address] [address] Mar, Hypertension I10 ; Acquired hypothyroidism E03.9 ; Esophageal reflux K21.9 ; Chronic obstructive pulmonary disease, unspecified COPD type J44.9 and BMI 40.0-44.9, adult Z68.[address] [address] Mar, Hypertension I10 [address] [address] Nov, Hyperlipidemia, unspecified E78.5 [place] [address] [place] [id number] [place] [address] October, Chest pain, unspecified type R07.9 and Acquired hypothyroidism E03.9 [place] [address] [place] [id number] [place] [address] October, Chest pain, unspecified type R07.9 ; Family history of coronary artery disease Z82.49 ; Carpal tunnel syndrome of left wrist G56.02 ; Hypertension I10 ; Esophageal reflux K21.9 ; Arthralgia M25.50 ; Acquired hypothyroidism E03.9 ; Cough R05 ; Nausea R11.0 ; Weight gain R63.5 and BMI 45.0-49.9, adult Z68.42 [place] [address] [address] Jun, Acquired hypothyroidism E03. 9 and Cough R05 [place] [address] [address] May, [place] [address] [address] Feb, Tarsal tunnel syndrome of timi th lower extremities G57.53 and Neuropathy G62.9 [place] [address] [address] Dec, Pleuritis R09.1 [place] [address] [address] Nov, [place] [address] [address] October, Arthralgia, unspecified join t M25.50 and Allergy, initial encounter T78.40XA [place] [address] [address] October, [place] [address] [address] October, Acute recurrent maxillary si nusitis J01.01 and Arthralgia M25.50 [place] [address] [address] 03 Sep, 2016 Pharyngitis due to other org anism J02.8 [place] [address] [address] 30 Aug, 2016 Acute nasopharyngitis J00 [place] [address] [address] 10 Aug, 2016 Multinodular goiter E04.2 [place] [address] [address] 03 Aug, 2016 Thyroid nodule E04.1 [place] [address] [address] 17 Jul, 2016 Tarsal tunnel syndrome of timi th lower extremities G57.[address] [address] Jun, Pneumonia due to infectious organism, unspecified laterality, unspecified part of lung J18.[address] [address] Jun, Bronchospasm with bronchitis , acute J20.[address] [address] May, Acute non-recurrent frontal sinusitis J01.10 [place] [address] [address] May, Flat foot [pes planus] (acqu ired), left foot M21.42 ; Flat foot [pes planus] (acquired), right foot M21.41 and Neuropathy G62.[address] [address] Apr, Chronic tension-type headach e, intractable G44.221 ; Right lower quadrant abdominal pain R10.31 ; Cervicalgia M54.2 ; Acute gastritis without hemorrhage, unspecified gastritis type K29.00 and Hypertension I10 [place] [address] [place] [id number] [place] [address] Mar, Depression F32.9 and Anxiety disorder, unspecified F41.9 [place] [place] [id number] [place], [place] [address] Feb, Depressive disorder F32.9 an d Anxiety disorder, unspecified F41.9 [place] [address] [place] [id number] [place] [address] Jan, Dysuria R30.0 ; Lower abdomi nal pain R10.30 ; Acute bilateral low back pain without sciatica M54.5 ; Nausea and vomiting, unspecified intactability, vomiting of unspecified type R11.2 ; Pain in right foot M79.671 and Pain of left foot M79.672 [place] [address] [address] Dec, Urinary tract infection, sit e not specified N39.0 [place] [address] [place] [id number] [place] [address] Dec, [place] [address] [address] Nov, [place] [address] [place] [id number] [place] [address] Nov, Dysuria R30.0 [place] [address] [place] [id number] [place] [address] Nov, Dysuria R30.0 and Acute cyst itis with hematuria N30.01 [place] [address] [place] [id number] [place] [address] October, Nausea R11.0 [place] [address] [place] [id number] [place] [address] October, Thyroid nodule E04.1 ; Carpa l tunnel syndrome, left upper limb G56.02 ; Carpal tunnel syndrome, right upper limb G56.01 and Constipation, unspecified constipation type K59.00 [facility] [address] [address] October, [facility] [address] [address] October, Thyroid nodule E04.1 [facility] [address] [address] October, Cold thyroid nodule E04.1 [facility] [address] [address] October, [facility] [address] [address] Sep, Thyroid nodule E04.1 [facility] [address] [address] Sep, Thyroid nodule E04.1 [facility] [address] [address] Sep, Thyroid nodule E04.1 ; Hyper tension I10 ; Esophageal reflux K21.9 and Hyperlipidemia, unspecified E78.5 [place] [address] [address] Aug, Other chronic pain G89.29 ; Sinusitis J32.9 and Hypertension I10 [place] [address] [address] Jul, [facility] [address] [address] 15 Jul, 2015 [facility] [address] [address] Jul, Insomnia G47.00 [address] M[address].50 [facility] [address] [address] Jul, Depressive disorder F32.9 an d Anxiety disorder, unspecified F41.9 [facility] [address] [facility] [id number] [address] [place] [address] May, Right-sided low back pain wi thout sciatica M54.[address] [facility] [address] [facility] [id number] [address] [place] [address] Apr, Hematuria R31.9 [facility] [address] [facility] [id number] [address] [place] [address] Mar, Other chronic pain G89.29 [facility] [address] [facility] [id number] [address] [place] [address] Mar, Other chronic pain G89.29 [facility] [address] [facility] [id number] [address] [place] [address] Feb, [facility] [address] [place] [id number] [place] [address] Feb, Other chronic pain 338.29 ; Dysuria 788.1 ; UTI (urinary tract infection) 599.0 ; Insomnia 780.52 ; Hot flashes 627.[address] [facility] [address] [facility] [id number] [address] [place] [address] Feb, Dysuria 788.1 [facility] [address] [place] [id number] [address] [place] [address] Feb, [facility] [address] [facility] [id number] [address] [place] [address] Jan, [facility] [address] [facility] [id number] [address] [place] [address] Jan, [facility] [address] [place] [id number] [place] [address] Jan, Fibromyalgia 729.1 ; Hyperte nsion 401.9 ; Dysthymia 300.[address] [facility] [address] [facility] [id number] [address] [place] [address] Dec, [facility] [address] [id number] [address] [place] [address], [place] [address] Dec, [facility] [address] [id number] [address] [place] [address], [place] [address] Dec, [facility] [address] [id number] [address] [place] [address], [place] [address] Nov, Other chronic pain 338.29 [facility] [address] [id number] [address] [place] [address], [place] [address] October, [facility] [address] [id number] [address] [place] [address], [place] [address] October, [facility] [address] [id number] [address] [place] [address], [place] [address] Sep, [facility] [address] [id number] [address] [place] [address], [place] [address] Sep, [facility] [address] [id number] [address] [place] [address], [place] [address] Aug, [facility] [address] [id number] [address] [place] [address], [place] [address] Aug, [facility] [address] [id number] [address] [place] [address], [place] [address] Aug, [facility] [address] [id number] [address] [place] [address], [place] [address] Aug, [facility] [address] [id number] [address] [place] [address], [place] [address] Aug, [facility] [address] [id number] [address] [place] [address], [place] [address] Aug, [facility] [address] [id number] [address] [place] [address], [place] [address] Aug, [facility] [address] [id number] [address] [place] [address], [place] [address] Aug, [facility] [address] [id number] [address] [place] [address], [place] [address] Aug, [facility] [address] [id number] [address] [place] [address], [place] [address] Aug, [facility] [address] [id number] [address] [place] [address], [place] [address] Aug, [facility] [address] [id number] [address] [place] [address], [place] [address] Aug, [facility] [address] [id number] [address] [place] [address], [place] [address] Aug, [facility] [address] [id number] [address] [place] [address], [place] [address] Aug, [facility] [address] [id number] [address] [place] [address], [place] [address] Jul, [facility] [address] [id number] [address] [place] [address], [place] [address] Jul, [facility] [address] [id number] [address] [place] [address], [place] [address] Jul, [facility] [address] [id number] [address] [place] [address], [place] [address] Jul, [facility] [address] [id number] [address] [place] [address], [place] [address] Jul, [facility] [address] [id number] [address] [place] [address], [place] [address] Jul, [facility] [address] [id number] [address] [place] [address], [place] [address] Jun, [facility] [address] [id number] [address] [place] [address], [place] [address] Jun, [facility] [address] [id number] [address] [place] [address], [place] [address] Jun, [facility] [address] [id number] [address] [place] [address], [place] [address] Jun, [facility] [address] [id number] [address] [place] [address], [place] [address] May, [facility] [address] [id number] [address] [place] [address], [place] [address] May, [facility] [address] [id number] [address] [place] [address], [place] [address] May, [facility] [address] [id number] [address] [place] [address], [place] [address] May, [facility] [address] [id number] [address] [place] [address], [place] [address] May, [facility] [address] [id number] [address] [place] [address], [place] [address] May, [facility] [address] [id number] [address] [place] [address], [place] [address] May, [facility] [address] [id number] [address] [place] [address], [place] [address] May, [facility] [address] [id number] [address] [place] [address], [place] [address] May, [facility] [address] [id number] [address] [place] [address], [place] [address] May, [facility] [address] [id number] [address] [place] [address], [place] [address] Apr, [facility] [address] [id number] [address] [place] [address], [place] [address] Apr, [facility] [address] [id number] [address] [place] [address], [place] [address] Apr, [facility] [address] [id number] [address] [place] [address], [place] [address] Apr, [facility] [address] [id number] [address] [place] [address], [place] [address] Apr, [facility] [address] [id number] [address] [place] [id number] 08 Apr, 2014 [facility] [address] [id number] [address] [place] [address], [place] [address] Apr, [facility] [address] [id number] [address] [place] [address], [place] [address] Apr, [facility] [address] [id number] [address] [place] [address], [place] [address] Apr, [facility] [address] [id number] [address] [place] [address], [place] [address] Mar, [facility] [address] [id number] [address] [place] [address], [place] [address] Mar, [facility] [address] [id number] [address] [place] [address], [place] [address] Mar, [facility] [address] [id number] [address] [place] [address], [place] [address] Mar, [facility] [address] [id number] [address] [place] [address], [place] [address] Mar, [facility] [address] [id number] [address] [place] [address], [place] [address] Mar, [facility] [address] [id number] [address] [place] [address] Mar, [facility] [address] [id number] [address] [place] [address], [place] [address] Mar, [facility] [address] [id number] [address] [place] [address] 30 Feb, 2014 [facility] [address] [id number] [address] [place] [address], [place] [address] 30 Feb, 2014 [facility] [address] [id number] [address] [place] [address], [place] [address] Feb, [facility] [address] [id number] [address] [place] [address], [place] [address] 24 Feb, 2013 [facility] [address] [id number] [facility] [place] [address] 22 Feb, 2013 [facility] [address] [id number] [facility] [place] [address] 22 Feb, 2013 [facility] [address] [id number] [facility] [place] [address] Feb, 2013 [facility] [address] [id number] [facility] [place] [address] 10 Feb, 2013 [facility] [address] [id number] [facility] [place] [address] Feb, 2013 [facility] [address] [id number] [address] [place] [address], [place] [address] Feb, 2013 [facility] [address] [id number] [address] [place] [address], [place] [address] Feb, 2013 [facility] [address] [id number] [address] [place] [address], [place] [address] Feb, 2013 [facility] [address] [id number] [address] [place] [address], [place] [address] Feb, 2013 [facility] [address] [id number] [address] [place] [address], [place] [address] Feb, 2013 [facility] [address] [id number] [address] [place] [address], [place] [address] Jan, [facility] [address] [id number] [address] [place] [address], [place] [address] Jan, [facility] [address] [id number] [address] [place] [address], [place] [address] Dec, [facility] [address] [id number] [address] [place] [address], [place] [address] Dec, [facility] [address] [id number] [address] [place] [address], [place] [address] Dec, [facility] [address] [id number] [address] [place] [address], [place] [address] Dec, 2013 [facility] [address] [id number] [place] [id number] Dec, 2013 [facility] [address] [id number] [facility] [place] [address] Dec, 2013 [facility] [address] [id number] [address] [place] [address], [place] [address] Dec, 2013 [facility] [address] [id number] [address] [place] [address], [place] [address] Dec, 2013 [facility] [address] [id number] [address] [place] [address], [place] [address] Dec, 2013 [facility] [address] [id number] [address] [place] [address], [place] [address] Dec, 2013 [facility] [address] [id number] [address] [place] [address], [place] [address] Dec, 2013 [facility] [address] [id number] [address] [place] [address], [place] [address] Dec, 2013 [facility] [address] [id number] [address] [place] [address], [place] [address] Dec, 2013 [facility] [address] [id number] [address] [place] [address], [place] [address] Dec, 2013 [facility] [address] [id number] [address] [place] [address], [place] [address] Dec, 2013 [facility] [address] [id number] [address] [place] [address], [place] [address] Dec, 2013 [facility] [address] [id number] [address] [place] [address], [place] [address] Dec, [facility] [address] [id number] [address] [place] [address], [place] [address] Dec, [facility] [address] [id number] [address] [place] [address], [place] [address] Dec, [facility] [address] [id number] [facility] [place] [address] 17 Nov, 2013 [facility] [address] [id number] [address] [place] [address], [place] [address] Nov, [facility] [address] [id number] [address] [place] [address], [place] [address] Nov, [facility] [address] [id number] [address] [place] [address], [place] [address] Nov, [facility] [address] [id number] [address] [place] [address], [place] [address] Nov, [facility] [address] [id number] [address] [place] [address], [place] [address] Nov, [facility] [address] [id number] [address] [place] [address], [place] [address] Nov, [facility] [address] [id number] [address] [place] [address], [place] [address] Nov, [facility] [address] [id number] [address] [place] [address], [place] [address] Nov, [facility] [address] [id number] [address] [place] [address], [place] [address] October, [facility] [address] [id number] [address] [place] [address], [place] [address] October, [facility] [address] [id number] [address] [place] [address], [place] [address] October, [facility] [address] [id number] [address] [place] [address], [place] [address] October, [facility] [address] [id number] [address] [place] [address], [place] [address] October, [facility] [address] [id number] [address] [place] [address], [place] [address] October, [facility] [address] [id number] [address] [place] [address], [place] [address] October, [facility] [address] [id number] [address] [place] [address], [place] [address] October, [facility] [address] [id number] [address] [place] [address], [place] [address] Sep, [facility] [address] [id number] [address] [place] [address], [place] [address] Sep, [facility] [address] [id number] [address] [place] [address], [place] [address] Sep, [facility] [address] [id number] [address] [place] [address], [place] [address] Sep, [facility] [address] [id number] [address] [place] [address], [place] [address] Sep, [facility] [address] [id number] [address] [place] [address], [place] [address] Sep, [facility] [address] [id number] [address] [place] [address], [place] [address] Sep, [facility] [address] [id number] [address] [place] [address], [place] [address] Aug, [facility] [address] [id number] [address] [place] [address], [place] [address] Aug, [facility] [address] [id number] [address] [place] [address], [place] [address] Aug, [facility] [address] [id number] [address] [place] [address], [place] [address] Aug, [facility] [address] [id number] [address] [place] [address], [place] [address] Aug, [facility] [address] [id number] [address] [place] [address], [place] [address] Aug, [facility] [address] [id number] [address] [place] [address], [place] [address] Jul, [facility] [address] [id number] [address] [place] [address], [place] [address] Jul, [facility] [address] [id number] [address] [place] [address], [place] [address] Jul, [facility] [address] [id number] [address] [place] [address], [place] [address] Jul, [facility] [address] [id number] [address] [place] [address], [place] [address] Jul, [facility] [address] [id number] [address] [place] [address], [place] [address] Jul, [facility] [address] [id number] [address] [place] [address], [place] [address] Jun, [facility] [address] [id number] [address] [place] [address], [place] [address] Jun, [facility] [address] [id number] [address] [place] [address], [place] [address] Jun, [facility] [address] [id number] [address] [place] [address], [place] [address] Jun, [facility] [address] [id number] [address] [place] [address], [place] [address] Jun, [facility] [address] [id number] [address] [place] [address], [place] [address] Jun, [facility] [address] [id number] [address] [place] [address], [place] [address] Jun, [facility] [address] [id number] [address] [place] [address], [place] [address] Jun, [facility] [address] [id number] [address] [place] [address], [place] [address] Jun, [facility] [address] [id number] [address] [place] [address], [place] [address] Jun, [facility] [address] [id number] [address] [place] [address], [place] [address] Jun, [facility] [address] [id number] [address] [place] [address], [place] [address] 14 Jun, 2013 [facility] [address] [id number] [address] [place] [address], [place] [address] 14 Jun, 2013 [facility] [address] [id number] [address] [place] [address], [place] [address] 30 May, 2013 [facility] [address] [id number] [address] [place] [address], [place] [address] 30 May, 2013 [facility] [address] [id number] [address] [place] [address], [place] [address] 30 May, 2013 [facility] [address] [id number] [address] [place] [address], [place] [address] 30 May, 2013 [facility] [address] [id number] [address] [place] [address], [place] [address] May, [facility] [address] [id number] [address] [place] [address], [place] [address] May, [facility] [address] [id number] [address] [place] [address], [place] [address] 14 May, 2013 [facility] [address] [id number] [address] [place] [address], [place] [address] May, [facility] [address] [id number] [address] [place] [address], [place] [address] 12 May, 2013 [facility] [address] [id number] [address] [place] [address], [place] [address] May, [facility] [address] [id number] [address] [place] [address], [place] [address] 11 May, 2013 [facility] [address] [id number] [address] [place] [address], [place] [address] 10 May, 2013 [facility] [address] [id number] [address] [place] [address], [place] [address] 10 May, 2013 [facility] [address] [id number] [address] [place] [address], [place] [address] May, [facility] [address] [id number] [address] [place] [address], [place] [address] May, [facility] [address] [id number] [address] [place] [address], [place] [address] 08 May, 2013 [facility] [address] [id number] [address] [place] [address], [place] [address] May, [facility] [address] [id number] [address] [place] [address], [place] [address] May, [facility] [address] [id number] [address] [place] [address], [place] [address] May, [facility] [address] [id number] [address] [place] [address], [place] [address] May, [facility] [address] [id number] [address] [place] [address], [place] [address] May, [facility] [address] [id number] [address] [place] [id number] Apr, [facility] [address] [id number] [address] [place] [address], [place] [address] Apr, [facility] [address] [id number] [address] [place] [id number] Apr, [facility] [address] [id number] [address] [place] [id number] Apr, [facility] [address] [id number] [address] [place] [id number] 08 Mar, 2013 [facility] [address] [id number] [address] [place] [address], [place] [address] 23 Feb, 2013 [facility] [address] [id number] [address] [place] [id number] 16 Feb, 2013 [facility] [address] [id number] [address] [place] [id number] 13 Feb, 2013 [facility] [address] [id number] [address] [place] [address], [place] [address] 10 Feb, 2013 [facility] [address] [id number] [address] [place] [address], [place] [address] Feb, [facility] [address] [id number] [address] [place] [address], [place] [address] Feb, [facility] [address] [id number] [address] [place] [address], [place] [address] Jan, [facility] [address] [id number] [address] [place] [address], [place] [address] Jan, [facility] [address] [id number] [address] [place] [address], [place] [address] Jan, [facility] [address] [id number] [address] [place] [address], [place] [address] Dec, [facility] [address] [id number] [address] [place] [address], [place] [address] Dec, [facility] [address] [id number] [address] [place] [address], [place] [address] Dec, [facility] [address] [id number] [address] [place] [address], [place] [address] Dec, [facility] [address] [id number] [address] [place] [address], [place] [address] Dec, [facility] [address] [id number] [address] [place] [address], [place] [address] Nov, [facility] [address] [id number] [address] [place] [address], [place] [address] Nov, [facility] [address] [id number] [address] [place] [address], [place] [address] Nov, [facility] [address] [id number] [address] [place] [address], [place] [address] Nov, [facility] [address] [id number] [address] [place] [address], [place] [address] Nov, [facility] [address] [id number] [address] [place] [address], [place] [address] 08 Nov, 2012 [facility] [address] [id number] [address] [place] [address], [place] [address] Nov, [facility] [address] [id number] [address] [place] [address], [place] [address] Nov, [facility] [address] [id number] [address] [place] [address], [place] [address] Nov, [facility] [address] [id number] [address] [place] [address], [place] [address] Nov, [facility] [address] [id number] [address] [place] [address], [place] [address] October, [facility] [address] [id number] [address] [place] [address], [place] [address] October, [facility] [address] [id number] [address] [place] [address], [place] [address] Sep, [facility] [address] [id number] [address] [place] [address], [place] [address] Sep, [facility] [address] [id number] [address] [place] [address], [place] [address] Sep, [facility] [address] [id number] [address] [place] [address], [place] [address] Sep, [facility] [address] [id number] [address] [place] [address], [place] [address] Sep, [facility] [address] [id number] [address] [place] [address], [place] [address] Aug, [facility] [address] [id number] [address] [place] [address], [place] [address] Aug, [facility] [address] [id number] [address] [place] [address], [place] [address] Jul, [facility] [address] [id number] [address] [place] [address], [place] [address] Jul, [facility] [address] [id number] [address] [place] [address], [place] [address] Jun, [facility] [address] [id number] [address] [place] [address], [place] [address] Jun, [facility] [address] [id number] [address] [place] [address], [place] [address] May, [facility] [address] [id number] [address] [place] [address], [place] [address] May, [facility] [address] [id number] [address] [place] [address], [place] [address] May, [facility] [address] [id number] [address] [place] [address], [place] [address] May, [facility] [address] [id number] [address] [place] [address], [place] [address] Apr, [facility] [address] [id number] [address] [place] [address], [place] [address] Apr, [facility] [address] [id number] [address] [place] [address], [place] [address] Apr, [facility] [address] [id number] [address] [place] [address], [place] [address] Apr, [facility] [address] [id number] [address] [place] [address], [place] [address] Apr, [facility] [address] [id number] [address] [place] [address], [place] [address] 14 Apr, 2012 [facility] [address] [id number] [address] [place] [address], [place] [address] 14 Apr, 2012 [facility] [address] [id number] [address] [place] [address], [place] [address] Apr, [facility] [address] [id number] [address] [place] [address], [place] [address] Apr, [facility] [address] [id number] [address] [place] [address], [place] [address] 15 Mar, 2012 [facility] [address] [id number] [address] [place] [address], [place] [address] Mar, [facility] [address] [id number] [address] [place] [address], [place] [address] Feb, [facility] [address] [id number] [address] [place] [address], [place] [address] Jan, [facility] [address] [id number] [address] [place] [address], [place] [address] Jan, [facility] [address] [id number] [address] [place] [address], [place] [address] Dec, [facility] [address] [id number] [address] [place] [address], [place] [address] Nov, [facility] [address] [id number] [address] [place] [address], [place] [address] Nov, [facility] [address] [id number] [address] [place] [address], [place] [address] October, [facility] [address] [id number] [address] [place] [address], [place] [address] October, [facility] [address] [id number] [address] [place] [address], [place] [address] Sep, [facility] [address] [id number] [address] [place] [address], [place] [address] Sep, [facility] [address] [id number] [address] [place] [address], [place] [address] May, [facility] [address] [id number] [address] [place] [address], [place] [address] Apr, [facility] [address] [id number] [address] [place] [address], [place] [address] Apr, [facility] [address] [id number] [address] [place] [address], [place] [address] [address], [address] [facility] [address] [id number] [address] [place] [address] [address], [address] [facility] [address] [id number] [address] [place] [id number] [address], [address] [facility] [address] [id number] [address] [place] [id number] Apr, [facility] [address] [id number] [address] [place] [id number] Apr, [facility] [address] [id number] [address] [place] [id number] Apr, [facility] [address] [id number] [address] [place] [id number] Mar, [facility] [address] [id number] [address] [place] [id number] Mar, [facility] [address] [id number] [address] [place] [id number] Mar, [facility] [address] [id number] [address] [place] [id number] Mar, [facility] [address] [id number] [address] [place] [id number] Mar, [facility] [address] [id number] [address] [place] [id number] Mar, IMMUNIZATIONS No Known Immunizations SOCIAL HISTORY Never Assessed REASON FOR VISIT [facility] [place] PLAN OF CARE VITAL SIGNS MEDICATIONS Unknown Medications RESULTS No Results PROCEDURES No Known procedures INSTRUCTIONS MEDICATIONS ADMINISTERED No Known Medications MEDICAL (GENERAL) HISTORY Type Description Date Medical History HTN Medical History Depression Medical History Arthritis Medical History COPD Surgical History Breast lump removed Surgical History Removal of cyst from ovary Surgical History cholecystectomy Surgical History Stomach surgeryx3 Hospitalization History Mental floor at [facility]
--- OUTSIDE RECORDS SUMMARY | 2019-12-24 20:01 | XMS REPORT ---
Author Author Deann Trey Doctor Organization [facility] Address Unknown Phone Unavailable Care Team Providers Care Hotel Front Desk Clerk Name Role Phone Migration, Doctor Unavailable Unavailable PROBLEMS Type Condition ICD9-CM Code [id number] Code Onset Dates Condition S tatus SNOMED Code Problem Nondependent 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 Ac tive 150965214 Problem Other chronic pain G89.29 Active 1 35249516 Problem Unspecified epilepsy without mention of intractable ep ilepsy G40.909 Active 76860198 Problem Hyperlipidemia, unspecified E78.5 Ac tive 11869643 Problem Hypertension I10 Active 6185883 3 Problem Esophageal reflux K21.9 Active 23 0387172 Problem Rheumatoid arthritis M06.9 Active 84758753 Problem Cough R05 Active 99015636 Problem Acquired hypothyroidism E03.9 Active 757651848 Problem Unspecified open-angle glaucoma, stage unspecified H40.10X0 Feb, Active 65020732 Problem Presbyopia H52.4 Active 09673233 Problem Insomnia G47.00 Active 886284029 Problem Arthralgia M25.50 Active 75113184 Problem Thyroid nodule E04.1 Active 01455 5005 Problem Anxiety disorder, unspecified F41.9 Active 221780662 Problem Chronic tension-type headache, intractable G44.221 Active 153185968 Problem Neuropathy G62.9 Active 223313757 Problem Goiter E04.9 Active 2880339 Problem Multinodular goiter E04.2 Active 995311676 Problem Carpal tunnel syndrome of left wrist G56.02 Active 887519997514212 Problem Chronic obstructive pulmonary disease, unspecified COPD ty pe J44.9 Active 34148182 Problem BMI 40.0-44.9, adult Z68.41 Active 629473765 Problem Seasonal allergic rhinitis due to pollen J30.1 Active 99282898 Problem Depression F32.9 Active 00173456 Problem Essential hypertension I10 Active 24395019 Problem Depressive disorder F32.9 Active 36583411 Problem Right-sided low back pain without sciatica M54.5 Active 926764811 Problem Reactive airway disease with out complication, unspecified asthma severity, unspecified whether persistent J45.909 Active 678592884947 Problem Urge incontinence of urine N39.41 Act chen 88918912 Problem Abnormal laboratory test R89.9 Activ e 520616044 Problem COPD with exacerbation J44.1 Active 940609719 ALLERGIES No Information ENCOUNTERS Encounter Location Date Diagnosis [place] [address] [address] October, Acute gastritis without hemo rrhage, unspecified gastritis type K29.00 ; Epigastric pain R10.13 ; Essential hypertension I10 ; Screening for colon cancer Z12.11 and BMI 40.0-44.9, adult Z68.41 [place] [address] [address] October, [facility] [address] [address] October, Chest pain R07.9 and Morbid obesity E66.01 [facility] [place] [address] [address] Sep, Generalized abdominal pain R 10.84 ; Morbid obesity E66.01 ; Non-intractable vomiting with nausea, unspecified vomiting type R11.2 and Seasonal allergic rhinitis due to pollen J30.1 [facility] [place] [address] [address] Jul, COPD with exacerbation J44.1 ; Viral upper respiratory tract infection J06.9 and Morbid obesity E66.01 [facility] [address] [address] Jun, Viral upper respiratory trac t infection J06.9 [place] [address] [address] Apr, Abnormal laboratory test R89 .9 [place] [address] [address] Apr, Abnormal laboratory test R89 .9 [place] [address] [address] Apr, Abnormal laboratory test R89 .9 [place] [address] [address] Apr, [place] [address] [address] Apr, [place] [address] [address] Apr, Nonintractable episodic head ache, unspecified headache type R51 ; Urge incontinence of urine N39.41 ; BMI 40.0-44.9, adult Z68.41 ; Myalgia M79.10 and Acute cystitis without hematuria N30.00 [place] [address] [address] Mar, Nasal congestion R09.81 ; Lo w back pain M54.5 ; Reactive airway disease without complication, unspecified asthma severity, unspecified whether persistent J45.909 ; Other chronic pain G89.29 ; Acute cystitis with hematuria N30.01 and BMI 40.0-44.9, adult Z68.41 [place] [address] [address] Mar, Acute cystitis with hematuri a N30.01 [facility] [address] [address] Mar, BMI 40.0-44.9, adult Z68.41 ; Acute cystitis with hematuria N30.01 ; Acute bilateral low back pain without sciatica M54.5 and Nausea R11.[address] [address] Mar, Hypertension I10 ; Acquired hypothyroidism E03.9 ; Esophageal reflux K21.9 ; Chronic obstructive pulmonary disease, unspecified COPD type J44.9 and BMI 40.0-44.9, adult Z68.41 [place] [address] [place] [address] Mar, Hypertension I10 [place] [address] [address] Nov, Hyperlipidemia, unspecified E78.5 [place] [address] [address] October, Chest pain, unspecified type R07.9 and Acquired hypothyroidism E03.9 [place] [address] [address] October, Chest pain, unspecified type R07.9 ; Family history of coronary artery disease Z82.49 ; Carpal tunnel syndrome of left wrist G56.02 ; Hypertension I10 ; Esophageal reflux K21.9 ; Arthralgia M25.50 ; Acquired hypothyroidism E03.9 ; Cough R05 ; Nausea R11.0 ; Weight gain R63.5 and BMI 45.0-49.9, adult Z68.42 [place] [address] [address] Jun, Acquired hypothyroidism E03. 9 and Cough R05 [place] [address] [address] May, [place] [address] [address] Feb, Tarsal tunnel syndrome of timi th lower extremities G57.53 and Neuropathy G62.9 [place] [address] [address] Dec, Pleuritis R09.1 [place] [address] [address] Nov, [place] [address] [address] October, Arthralgia, unspecified join t M25.50 and Allergy, initial encounter T78.40XA [place] [address] [address] October, [place] [address] [address] October, Acute recurrent maxillary si nusitis J01.01 and Arthralgia M25.50 [place] [address] [address] Sep, Pharyngitis due to other org anism J02.8 [place] [address] [address] Aug, Acute nasopharyngitis J00 [place] [address] [address] Aug, Multinodular goiter E04.2 [place] [address] [address] Aug, Thyroid nodule E04.1 [place] [address] [address] Jul, Tarsal tunnel syndrome of timi th lower extremities G57.[address] [address] Jun, Pneumonia due to infectious organism, unspecified laterality, unspecified part of lung J18.[address] [address] Jun, Bronchospasm with bronchitis , acute J20.9 [place] [address] [address] May, Acute non-recurrent frontal sinusitis J01.[address] [address] May, Flat foot [pes planus] (acqu ired), left foot M21.42 ; Flat foot [pes planus] (acquired), right foot M21.41 and Neuropathy G62.9 [place] [address] [place] [address] Apr, Chronic tension-type headach e, intractable G44.221 ; Right lower quadrant abdominal pain R10.31 ; Cervicalgia M54.2 ; Acute gastritis without hemorrhage, unspecified gastritis type K29.00 and Hypertension I10 [place] [address] [address] Mar, Depression F32.9 and Anxiety disorder, unspecified F41.9 [place] [address] [address] Feb, Depressive disorder F32.9 an d Anxiety disorder, unspecified F41.9 [place] [address] [address] Jan, Dysuria R30.0 ; Lower abdomi nal pain R10.30 ; Acute bilateral low back pain without sciatica M54.5 ; Nausea and vomiting, unspecified intactability, vomiting of unspecified type R11.2 ; Pain in right foot M79.671 and Pain of left foot M79.672 [place] [address] [address] Dec, Urinary tract infection, sit e not specified N39.0 [place] [address] [address] Dec, [place] [address] [address] Nov, [place] [address] [address] Nov, Dysuria R30.0 [place] [address] [address] Nov, Dysuria R30.0 and Acute cyst itis with hematuria N30.01 [place] [address] [address] October, Nausea R11.0 [place] [id number] [address] October, Thyroid nodule E04.1 ; Carpa l tunnel syndrome, left upper limb G56.02 ; Carpal tunnel syndrome, right upper limb G56.01 and Constipation, unspecified constipation type K59.00 [facility] [place] [address] [address] October, [place] [address] [address] October, Thyroid nodule E04.1 [place] [address] [address] October, Cold thyroid nodule E04.1 [place] [address] [address] October, [place] [address] [address] Sep, Thyroid nodule E04.1 [place] [address] [address] Sep, Thyroid nodule E04.1 [place] [address] [address] Sep, Thyroid nodule E04.1 ; Hyper tension I10 ; Esophageal reflux K21.9 and Hyperlipidemia, unspecified E78.5 [place] [address] [address] Aug, Other chronic pain G89.29 ; Sinusitis J32.9 and Hypertension I10 [place] [address] [address] Jul, [place] [address] [address] 15 Jul, 2015 [place] [address] [address] Jul, Insomnia G47.00 and Arthralg ia M25.50 [facility] [place] [address] [facility] [id number] [address] [place] [address] Jul, Depressive disorder F32.9 an d Anxiety disorder, unspecified F41.9 [facility] [place] [address] [facility] [id number] [address] [place] [address] May, Right-sided low back pain wi thout sciatica M54.5 and Depression F32.9 [place] [address] [facility] [id number] [address] [place] [address] Apr, Hematuria R31.9 [place] [address] [address] [place] [id number] [place] [address] Mar, Other chronic pain G89.29 [place] [address] [address] [place] [id number] [place] [address] Mar, Other chronic pain G89.29 [place] [address] [address] [place] [id number] [place] [address] Feb, [place] [address] [place] [id number] [place] [address] Feb, Other chronic pain 338.29 ; Dysuria 788.1 ; UTI (urinary tract infection) 599.0 ; Insomnia 780.52 ; Hot flashes 627.2 and Hypertension 401.9 [place] [address] [address] [place] [id number] [place] [address] Feb, Dysuria 788.1 [place] [address] [address] [place] [id number] [place] [address] Feb, [place] [address] [place] [id number] [place] [address] Jan, [facility] [place] [address] [place] [id number] [address] [place] [address] Jan, [place] [address] [place] [id number] [place] [address] Jan, Fibromyalgia 729.1 ; Hyperte nsion 401.9 ; Dysthymia 300.4 and Hot flashes 627.2 [facility] [place] [address] [id number] [address] [place] [address] Dec, [facility] [address] [id number] [address] [place] [address] Dec, [facility] [address] [id number] [address] [place] [address] Dec, [facility] [address] [id number] [address] [place] [address] Nov, Other chronic pain 338.29 [facility] [place] [address] [id number] [address] [place] [address] October, [facility] [place] [address] [id number] [address] [place] [address] October, [facility] [place] [address] [id number] [address] [place] [address] Sep, [facility] [address] [id number] [address] [place] [address] Sep, [facility] [address] [id number] [address] [place] [address] Aug, [facility] [place] [address] [id number] [address] [place] [address] Aug, [facility] [place] [address] [id number] [address] [place] [address] Aug, [facility] [address] [id number] [address] [place] [address] Aug, [facility] [address] [id number] [address] [place] [address] Aug, [facility] [address] [id number] [address] [place] [address] Aug, [facility] [place] [address] [id number] [address] [place] [address] [place] [address] Aug, [facility] [address] [id number] [address] [place] [address], [place] [address] Aug, [facility] [address] [id number] [address] [place] [address], [place] [address] Aug, [facility] [address] [id number] [address] [place] [address], [place] [address] Aug, [facility] [address] [id number] [address] [place] [address], [place] [address] Aug, [facility] [address] [id number] [address] [place] [address], [place] [address] Aug, [facility] [address] [id number] [address] [place] [address], [place] [address] Aug, [facility] [address] [id number] [address] [place] [address], [place] [address] Aug, [facility] [address] [id number] [address] [place] [address], [place] [address] Jul, [facility] [address] [id number] [address] [place] [address], [place] [address] Jul, [facility] [address] [id number] [address] [place] [address], [place] [address] Jul, [facility] [place] [facility] [address] [id number] [address] [place] [address], [place] [address] Jul, [facility] [address] [id number] [address] [place] [address], [place] [address] Jul, [facility] [place] [facility] [address] [id number] [address] [place] [address], [place] [address] Jul, [facility] [place] [facility] [address] [id number] [address] [place] [address], [place] [address] Jun, [facility] [place] [facility] [address] [id number] [address] [place] [address], [place] [address] Jun, [facility] [address] [id number] [address] [place] [address], [place] [address] Jun, [facility] [address] [id number] [address] [place] [address], [place] [address] Jun, [facility] [address] [id number] [address] [place] [address], [place] [address] May, [facility] [address] [id number] [address] [place] [address], [place] [address] May, [facility] [address] [id number] [address] [place] [address], [place] [address] May, [facility] [address] [id number] [address] [place] [address], [place] [address] May, [facility] [address] [id number] [address] [place] [address], [place] [address] May, [facility] [address] [id number] [address] [place] [address], [place] [address] May, [facility] [address] [id number] [address] [place] [address], [place] [address] May, [facility] [address] [id number] [address] [place] [address], [place] [address] May, [facility] [address] [id number] [address] [place] [address], [place] [address] May, [facility] [address] [id number] [address] [place] [address], [place] [address] May, [facility] [place] [facility] [address] [id number] [address] [place] [address], [place] [address] Apr, [facility] [place] [facility] [address] [id number] [address] [place] [address], [place] [address] Apr, [facility] [place] [facility] [address] [id number] [address] [place] [address], [place] [address] Apr, [facility] [place] [facility] [address] [id number] [address] [place] [address] Apr, [facility] [place] [facility] [address] [id number] [address] [place] [address], [place] [address] Apr, [facility] [place] [facility] [address] [id number] [address] [place] [address] Apr, [facility] [place] [facility] [address] [id number] [address] [place] [address], [place] [address] Apr, [facility] [place] [facility] [address] [id number] [address] [place] [address], [place] [address] Apr, [facility] [place] [facility] [address] [id number] [address] [place] [address], [place] [address] Apr, [facility] [place] [facility] [address] [id number] [address] [place] [address], [place] [address] Mar, [facility] [place] [facility] [address] [id number] [address] [place] [address], [place] [address] Mar, [facility] [place] [facility] [address] [id number] [address] [place] [address], [place] [address] Mar, [facility] [place] [facility] [address] [id number] [address] [place] [address] Mar, [facility] [place] [facility] [address] [id number] [address] [place] [address] Mar, [facility] [place] [facility] [address] [id number] [address] [place] [address] Mar, [facility] [place] [facility] [address] [id number] [address] [place] [address] Mar, [facility] [place] [facility] [address] [id number] [address] [place] [address] Mar, [facility] [place] [facility] [address] [id number] [address] [place] [address], [place] [address] Feb, [facility] [place] [facility] [address] [id number] [address] [place] [address], [place] [address] 30 Feb, 2014 [facility] [place] [facility] [address] [id number] [facility] [address] 24 Sep, 2013 [facility] [place] [facility] [address] [id number] [facility] [place] [address] 24 Feb, 2013 [facility] [place] [facility] [address] [id number] [facility] [place] [address] 22 Feb, 2013 [facility] [place] [facility] [address] [id number] [facility] [place] [address] 22 Feb, 2013 [facility] [place] [facility] [address] [id number] [facility] [address] 10 Feb, 2013 [facility] [place] [facility] [address] [id number] [address] [place] [address], [place] [address] 10 Feb, 2013 [facility] [place] [facility] [address] [id number] [address] [place] [address], [place] [address] Feb, 2013 [facility] [place] [facility] [address] [id number] [address] [place] [address], [place] [address] Feb, 2013 [facility] [place] [facility] [address] [id number] [address] [place] [address], [place] [address] Feb, 2013 [facility] [place] [facility] [address] [id number] [address] [place] [address], [place] [address] Feb, 2013 [facility] [place] [facility] [address] [id number] [address] [place] [address], [place] [address] Feb, 2013 [facility] [place] [facility] [address] [id number] [address] [place] [address], [place] [address] Feb, 2013 [facility] [place] [facility] [address] [id number] [address] [place] [address], [place] [address] Jan, [facility] [place] [facility] [address] [id number] [address] [place] [address], [place] [address] Jan, [facility] [place] [facility] [address] [id number] [address] [place] [address], [place] [address] Dec, [facility] [place] [facility] [address] [id number] [address] [place] [address], [place] [address] Dec, [facility] [address] [id number] [address] [place] [address], [place] [address] Dec, [facility] [address] [id number] [address] [place] [address], [place] [address] Dec, [facility] [address] [id number] [address] [place] [address], [place] [id number] Dec, [facility] [address] [id number] [address] [place] [address], [place] [address] Dec, [facility] [address] [id number] [address] [place] [address], [place] [address] Dec, [facility] [address] [id number] [address] [place] [address], [place] [address] Dec, [facility] [address] [id number] [address] [place] [address], [place] [address] Dec, [facility] [address] [id number] [address] [place] [address], [place] [address] Dec, [facility] [address] [id number] [address] [place] [address], [place] [address] Dec, [facility] [address] [id number] [address] [place] [address], [place] [address] Dec, [facility] [address] [id number] [address] [place] [address], [place] [address] Dec, [facility] [address] [id number] [address] [place] [address], [place] [address] Dec, [facility] [address] [id number] [address] [place] [address], [place] [address] Dec, [facility] [address] [id number] [address] [place] [address], [place] [address] Dec, [facility] [address] [id number] [address] [place] [address], [place] [address] Dec, [facility] [address] [id number] [address] [place] [address], [place] [address] Dec, [facility] [address] [id number] [address] [place] [address], [place] [address] Dec, [facility] [address] [id number] [address] [place] [address], [place] [address] Nov, [facility] [address] [id number] [address] [place] [address], [place] [address] Nov, [facility] [address] [id number] [address] [place] [address], [place] [address] Nov, [facility] [address] [id number] [address] [place] [address], [place] [address] Nov, [facility] [address] [id number] [address] [place] [address], [place] [address] Nov, [facility] [address] [id number] [address] [place] [address], [place] [address] Nov, [facility] [address] [id number] [address] [place] [address], [place] [address] Nov, [facility] [address] [id number] [address] [place] [address], [place] [address] Nov, [facility] [address] [id number] [address] [place] [address], [place] [address] Nov, [facility] [address] [id number] [address] [place] [address], [place] [address] October, [facility] [address] [id number] [address] [place] [address], [place] [address] October, [facility] [address] [id number] [address] [place] [address], [place] [address] October, [facility] [address] [id number] [address] [place] [address], [place] [address] October, [facility] [address] [id number] [address] [place] [address], [place] [address] October, [facility] [address] [id number] [address] [place] [address] October, [facility] [address] [id number] [address] [place] [address], [place] [address] October, [facility] [address] [id number] [address] [place] [address], [place] [address] October, [facility] [address] [id number] [address] [place] [address], [place] [address] Sep, [facility] [address] [id number] [address] [place] [address], [place] [address] Sep, [facility] [address] [id number] [address] [place] [address], [place] [address] Sep, [facility] [address] [id number] [address] [place] [address], [place] [address] Sep, [facility] [address] [id number] [address] [place] [address], [place] [address] Sep, [facility] [address] [id number] [address] [place] [address], [place] [address] Sep, [facility] [address] [id number] [address] [place] [address], [place] [address] Sep, [facility] [address] [id number] [address] [place] [address], [place] [address] Aug, [facility] [address] [id number] [address] [place] [address], [place] [address] Aug, [facility] [address] [id number] [address] [place] [address], [place] [address] Aug, [facility] [address] [id number] [address] [place] [address], [place] [address] Aug, [facility] [address] [id number] [address] [place] [address], [place] [address] Aug, [facility] [address] [id number] [address] [place] [address], [place] [address] Aug, [facility] [address] [id number] [address] [place] [address], [place] [address] Jul, [facility] [address] [id number] [address] [place] [address], [place] [address] Jul, [facility] [address] [id number] [address] [place] [address], [place] [address] Jul, [facility] [address] [id number] [address] [place] [address], [place] [address] Jul, [facility] [address] [id number] [address] [place] [address], [place] [address] Jul, [facility] [address] [id number] [address] [place] [address], [place] [address] Jul, [facility] [address] [id number] [address] [place] [address], [place] [address] Jun, [facility] [address] [id number] [address] [place] [address], [place] [address] Jun, [facility] [address] [id number] [address] [place] [address], [place] [address] Jun, [facility] [address] [id number] [address] [place] [address], [place] [address] Jun, [facility] [address] [id number] [address] [place] [address], [place] [address] Jun, [facility] [address] [id number] [address] [place] [address], [place] [address] Jun, [facility] [address] [id number] [address] [place] [address], [place] [address] Jun, [facility] [address] [id number] [address] [place] [address], [place] [address] Jun, [facility] [address] [id number] [address] [place] [address], [place] [address] Jun, [facility] [address] [id number] [address] [place] [address], [place] [address] 14 Jun, 2013 [facility] [address] [id number] [address] [place] [address], [place] [address] 14 Jun, 2013 [facility] [address] [id number] [address] [place] [address], [place] [address] 14 Jun, 2013 [facility] [address] [id number] [address] [place] [address], [place] [address] 14 Jun, 2013 [facility] [address] [id number] [address] [place] [address], [place] [address] 30 May, 2013 [facility] [address] [id number] [address] [place] [address], [place] [address] 30 May, 2013 [facility] [address] [id number] [address] [place] [address], [place] [address] 30 May, 2013 [facility] [address] [id number] [address] [place] [address], [place] [address] 30 May, 2013 [facility] [address] [id number] [address] [place] [address], [place] [address] 26 May, 2013 [facility] [address] [id number] [address] [place] [address], [place] [address] May, [facility] [address] [id number] [address] [place] [address], [place] [address] 14 May, 2013 [facility] [address] [id number] [address] [place] [address], [place] [address] 12 May, 2013 [facility] [address] [id number] [address] [place] [address], [place] [address] May, [facility] [address] [id number] [address] [place] [address], [place] [address] May, [facility] [address] [id number] [address] [place] [address], [place] [address] 11 May, 2013 [facility] [address] [id number] [address] [place] [address] [address] May, [facility] [address] [id number] [address] [place] [address], [place] [address] May, [facility] [address] [id number] [address] [place] [address], [place] [address] May, [facility] [address] [id number] [address] [place] [address], [place] [address] May, [facility] [address] [id number] [address] [place] [address], [place] [address] May, [facility] [address] [id number] [address] [place] [address], [place] [address] May, [facility] [address] [id number] [address] [place] [address], [place] [address] May, [facility] [address] [id number] [address] [place] [address], [place] [address] May, [facility] [address] [id number] [address] [place] [address], [place] [address] May, [facility] [address] [id number] [address] [place] [address], [place] [address] May, [facility] [address] [id number] [address] [place] [address], [place] [address] Apr, [facility] [address] [id number] [address] [place] [address] Apr, [facility] [address] [id number] [address] [place] [address] Apr, [facility] [address] [id number] [address] [place] [address], [place] [address] Apr, [facility] [address] [id number] [address] [place] [address] Mar, [facility] [address] [id number] [address] [place] [address], [place] [address] Feb, [facility] [address] [id number] [address] [place] [address], [place] [address] 16 Feb, 2012 [facility] [address] [id number] [address] [place] [address], [place] [address] 13 Feb, 2012 [facility] [address] [id number] [address] [place] [address], [place] [address] 10 Feb, 2013 [facility] [address] [id number] [address] [place] [address], [place] [address] 09 Feb, 2012 [facility] [address] [id number] [address] [place] [address], [place] [address] 09 Feb, 2013 [facility] [address] [id number] [address] [place] [address], [place] [address] Jan, [facility] [address] [id number] [address] [place] [address], [place] [address] Jan, [facility] [address] [id number] [address] [place] [address], [place] [address] Jan, [facility] [address] [id number] [address] [place] [address], [place] [address] Dec, [facility] [address] [id number] [address] [place] [address], [place] [address] Dec, [facility] [address] [id number] [address] [place] [address], [place] [address] Dec, [facility] [address] [id number] [address] [place] [address], [place] [address] Dec, [facility] [address] [id number] [address] [place] [address], [place] [address] Dec, [facility] [address] [id number] [address] [place] [address], [place] [address] Nov, [facility] [address] [id number] [address] [place] [address], [place] [address] Nov, [facility] [address] [id number] [address] [place] [address], [place] [address] Nov, [facility] [address] [id number] [address] [place] [address], [place] [address] Nov, [facility] [address] [id number] [address] [place] [address], [place] [address] Nov, [facility] [address] [id number] [address] [place] [address], [place] [address] 08 Nov, 2012 [facility] [address] [id number] [address] [place] [address], [place] [address] Nov, [facility] [address] [id number] [address] [place] [address], [place] [address] Nov, [facility] [address] [id number] [address] [place] [address], [place] [address] Nov, [facility] [address] [id number] [address] [place] [address], [place] [address] Nov, [facility] [address] [id number] [address] [place] [address], [place] [address] October, [facility] [address] [id number] [address] [place] [address], [place] [address] October, [facility] [address] [id number] [address] [place] [address], [place] [address] Sep, [facility] [address] [id number] [address] [place] [address], [place] [address] Sep, [facility] [address] [id number] [address] [place] [address], [place] [address] Sep, [facility] [address] [id number] [address] [place] [address], [place] [address] Sep, [facility] [address] [id number] [address] [place] [address], [place] [address] Sep, [facility] [address] [id number] [address] [place] [address], [place] [address] Aug, [facility] [address] [id number] [address] [place] [address], [place] [address] Aug, [facility] [address] [id number] [address] [place] [address], [place] [address] Jul, [facility] [address] [id number] [address] [place] [address], [place] [address] Jul, [facility] [address] [id number] [address] [place] [address], [place] [address] Jun, [facility] [address] [id number] [address] [place] [address], [place] [address] Jun, [facility] [address] [id number] [address] [place] [address], [place] [address] May, [facility] [address] [id number] [address] [place] [address], [place] [address] May, [facility] [address] [id number] [address] [place] [address], [place] [address] May, [facility] [address] [id number] [address] [place] [address], [place] [address] May, [facility] [address] [id number] [address] [place] [address], [place] [address] Apr, [facility] [address] [id number] [address] [place] [address], [place] [address] Apr, [facility] [address] [id number] [address] [place] [address], [place] [address] Apr, [facility] [address] [id number] [address] [place] [address], [place] [address] Apr, [facility] [address] [id number] [address] [place] [address], [place] [address] Apr, [facility] [address] [id number] [address] [place] [address], [place] [address] Apr, [facility] [address] [id number] [address] [place] [address], [place] [address] Apr, [facility] [address] [id number] [address] [place] [address], [place] [address] Apr, [facility] [address] [id number] [address] [place] [address], [place] [address] Apr, [facility] [address] [id number] [address] [place] [address], [place] [address] Mar, [facility] [address] [id number] [address] [place] [address], [place] [address] Mar, [facility] [address] [id number] [address] [place] [address], [place] [address] Feb, [facility] [address] [id number] [address] [place] [address], [place] [address] Jan, [facility] [address] [id number] [address] [place] [address], [place] [address] Jan, [facility] [address] [id number] [address] [place] [address], [place] [address] Dec, [facility] [address] [id number] [address] [place] [address], [place] [address] Nov, [facility] [address] [id number] [address] [place] [address], [place] [address] Nov, [facility] [address] [id number] [address] [place] [address], [place] [address] October, [facility] [address] [id number] [address] [place] [address], [place] [address] October, [facility] [address] [id number] [address] [place] [address], [place] [address] Sep, [facility] [address] [id number] [address] [place] [address], [place] [address] Sep, [facility] [address] [id number] [address] [place] [address], [place] [address] May, [facility] [address] [id number] [address] [place] [address], [place] [address] Apr, [facility] [place] [address] [id number] [address] [place] [address] Apr, [facility] [place] [address] [id number] [address] [place] [address] Apr, [facility] [place] [address] [id number] [address] [place] [address] Apr, [facility] [place] [address] [id number] [address] [place] [address] Apr, [facility] [place] [address] [id number] [address] [place] [address] Apr, [facility] [place] [address] [id number] [address] [place] [address] Apr, [facility] [place] [address] [id number] [address] [place] [address] Apr, [facility] [place] [address] [id number] [address] [place] [address] Mar, [facility] [place] [address] [id number] [address] [place] [id number] Mar, [facility] [place] [address] [id number] [address] [place] [id number] Mar, [facility] [place] [address] [id number] [address] [place] [address] Mar, [facility] [place] [address] [id number] [address] [place] [address] Mar, [facility] [place] [address] [id number] [address] [place] [address] Mar, IMMUNIZATIONS No Known Immunizations SOCIAL HISTORY Never Assessed REASON FOR VISIT [facility] [place] VITAL SIGNS MEDICATIONS No [...]
--- OUTSIDE RECORDS SUMMARY | 2019-12-24 20:01 | XMS REPORT ---
Author Author Deann Trey Doctor Organization [facility] Address Unknown Phone Unavailable Care Team Providers Care Journeyman Apprentice Electricians Name Role Phone Migration, Doctor Unavailable Unavailable PROBLEMS Type Condition ICD9-CM Code AXT95-AC Code Onset Dates Condition S tatus SNOMED Code Problem Nondependent 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 Ac tive 263163222 Problem Other chronic pain G89.29 Active 1 36537494 Problem Unspecified epilepsy without mention of intractable ep ilepsy G40.909 Active 43095706 Problem Hyperlipidemia, unspecified E78.5 Ac tive 33177025 Problem Hypertension I10 Active 5966139 3 Problem Esophageal reflux K21.9 Active 23 4024354 Problem Rheumatoid arthritis M06.9 Active 17637289 Problem Cough R05 Active 07223630 Problem Acquired hypothyroidism E03.9 Active 105598133 Problem Unspecified open-angle glaucoma, stage unspecified H40.10X0 Feb, Active 04219300 Problem Presbyopia H52.4 Active 80035616 Problem Insomnia G47.00 Active 410206444 Problem Arthralgia M25.50 Active 25223497 Problem Thyroid nodule E04.1 Active 06536 5005 Problem Anxiety disorder, unspecified F41.9 Active 025522064 Problem Chronic tension-type headache, intractable G44.221 Active 789817770 Problem Neuropathy G62.9 Active 628024685 Problem Goiter E04.9 Active 7611867 Problem Multinodular goiter E04.2 Active 834482084 Problem Carpal tunnel syndrome of left wrist G56.02 Active 830670041266847 Problem Chronic obstructive pulmonary disease, unspecified COPD ty pe J44.9 Active 13409772 Problem BMI 40.0-44.9, adult Z68.41 Active 186907797 Problem Seasonal allergic rhinitis due to pollen J30.1 Active 77737999 Problem Depression F32.9 Active 13029239 Problem Essential hypertension I10 Active 26622435 Problem Depressive disorder F32.9 Active 09014466 Problem Right-sided low back pain without sciatica M54.5 Active 992933453 Problem Reactive airway disease with out complication, unspecified asthma severity, unspecified whether persistent J45.909 Active 556522468757 Problem Urge incontinence of urine N39.41 Act chen 19375075 Problem Abnormal laboratory test R89.9 Activ e 950755540 Problem COPD with exacerbation J44.1 Active 275143252 ALLERGIES Substance Reaction Event Type Date Status Depakote 500 Mg Tablet,delayed Release (dr/ec) Unknown N on Drug Allergy Sep, Active Hydrocodone And Marijuana Hx of abuse Non Drug Allergy Sep, 5 Active ENCOUNTERS Encounter Location Date Diagnosis [place] [address] [address] October, Acquired hypothyroidism E03. [address] [address] October, Acute gastritis without hemo rrhage, unspecified gastritis type K29.00 ; Epigastric pain R10.13 ; Essential hypertension I10 ; Screening for colon cancer Z12.11 and BMI 40.0-44.9, adult Z68.41 [place] [address] [address] October, [facility] [address] [address] October, Chest pain R07.9 and Morbid obesity E66.01 [facility] [address] [address] Sep, Generalized abdominal pain R 10.84 ; Morbid obesity E66.01 ; Non-intractable vomiting with nausea, unspecified vomiting type R11.2 and Seasonal allergic rhinitis due to pollen J30.1 [facility] [place] [address] [address] Jul, COPD with exacerbation J44.1 ; Viral upper respiratory tract infection J06.9 and Morbid obesity E66.01 [facility] [place] [address] [address] Jun, Viral upper respiratory trac t infection J06.9 [facility] [address] [facility] [id number] [address] [place] [address] Apr, Abnormal laboratory test R89 .9 [place] [address] [address] [facility] [id number] [address] [place] [address] Apr, Abnormal laboratory test R89 .9 [facility] [address] [facility] [id number] [address] [place] [address] Apr, Abnormal laboratory test R89 .9 [facility] [address] [facility] [id number] [address] [place] [address] Apr, [place] [address] [address] [place] [id number] [address] [place] [address] Apr, [place] [address] [address] [place] [id number] [address] [place] [address] Apr, Nonintractable episodic head ache, unspecified headache type R51 ; Urge incontinence of urine N39.41 ; BMI 40.0-44.9, adult Z68.41 ; Myalgia M79.10 and Acute cystitis without hematuria N30.00 [place] [address] [address] [place] [id number] [address] [place] [address] Mar, Nasal congestion R09.81 ; Lo w back pain M54.5 ; Reactive airway disease without complication, unspecified asthma severity, unspecified whether persistent J45.909 ; Other chronic pain G89.29 ; Acute cystitis with hematuria N30.01 and BMI 40.0-44.9, adult Z68.41 [facility] [address] [facility] [id number] [address] [place] [address] Mar, Acute cystitis with hematuri a N30.01 [facility] [address] [facility] [id number] [address] [place] [address] Mar, BMI 40.0-44.9, adult Z68.41 ; Acute cystitis with hematuria N30.01 ; Acute bilateral low back pain without sciatica M54.5 and Nausea R11.0 [place] [address] [address] Mar, Hypertension I10 ; Acquired hypothyroidism E03.9 ; Esophageal reflux K21.9 ; Chronic obstructive pulmonary disease, unspecified COPD type J44.9 and BMI 40.0-44.9, adult Z68.41 [place] [address] [address] Mar, Hypertension I10 [place] [address] [address] Nov, Hyperlipidemia, unspecified E78.5 [place] [address] [address] October, Chest pain, unspecified type R07.9 and Acquired hypothyroidism E03.9 [place] [address] [address] October, Chest pain, unspecified type R07.9 ; Family history of coronary artery disease Z82.49 ; Carpal tunnel syndrome of left wrist G56.02 ; Hypertension I10 ; Esophageal reflux K21.9 ; Arthralgia M25.50 ; Acquired hypothyroidism E03.9 ; Cough R05 ; Nausea R11.0 ; Weight gain R63.5 and BMI 45.0-49.9, adult Z68.42 [place] [address] [address] Jun, Acquired hypothyroidism E03. 9 and Cough R05 [place] [address] [address] May, [place] [address] [address] Feb, Tarsal tunnel syndrome of timi th lower extremities G57.53 and Neuropathy G62.9 [place] [address] [address] Dec, Pleuritis R09.1 [place] [address] [address] Nov, [place] [address] [place] [id number] [address] [place] [address] October, Arthralgia, unspecified join t M25.50 and Allergy, initial encounter T78.40XA [place] [address] [address] [place] [id number] [address] [place] [address] October, [place] [address] [place] [id number] [address] [place] [address] October, Acute recurrent maxillary si nusitis J01.01 and Arthralgia M25.50 [place] [address] [address] Sep, Pharyngitis due to other org anism J02.8 [place] [address] [place] [id number] [address] [place] [address] Aug, Acute nasopharyngitis J00 [place] [address] [address] Aug, Multinodular goiter E04.2 [place] [address] [address] Aug, Thyroid nodule E04.1 [place] [address] [place] [id number] [address] [place] [address] Jul, Tarsal tunnel syndrome of timi th lower extremities G57.53 [place] [address] [address] [place] [id number] [address] [place] [address] Jun, Pneumonia due to infectious organism, unspecified laterality, unspecified part of lung J18.9 [place] [id number] [place] [address] Jun, Bronchospasm with bronchitis , acute J20.9 [place] [address] [place] [id number] [address] [place] [address] May, Acute non-recurrent frontal sinusitis J01.10 [place] [address] [address] May, Flat foot [pes planus] (acqu ired), left foot M21.42 ; Flat foot [pes planus] (acquired), right foot M21.41 and Neuropathy G62.9 [place] [address] [address] Apr, Chronic tension-type headach e, intractable G44.221 ; Right lower quadrant abdominal pain R10.31 ; Cervicalgia M54.2 ; Acute gastritis without hemorrhage, unspecified gastritis type K29.00 and Hypertension I10 [place] [address] [address] Mar, Depression F32.9 and Anxiety disorder, unspecified F41.9 [place] [address] [address] Feb, Depressive disorder F32.9 an d Anxiety disorder, unspecified F41.9 [place] [address] [address] Jan, Dysuria R30.0 ; Lower abdomi nal pain R10.30 ; Acute bilateral low back pain without sciatica M54.5 ; Nausea and vomiting, unspecified intactability, vomiting of unspecified type R11.2 ; Pain in right foot M79.671 and Pain of left foot M79.672 [place] [address] [address] Dec, Urinary tract infection, sit e not specified N39.0 [place] [address] [address] Dec, [place] [address] [address] Nov, [place] [address] [address] Nov, Dysuria R30.0 [place] [address] [address] Nov, Dysuria R30.0 and Acute cyst itis with hematuria N30.01 [place] [address] [address] October, Nausea R11.0 [place] [address] [address] October, Thyroid nodule E04.1 ; Carpa l tunnel syndrome, left upper limb G56.02 ; Carpal tunnel syndrome, right upper limb G56.01 and Constipation, unspecified constipation type K59.00 [place] [address] [address] October, [place] [address] [address] October, Thyroid nodule E04.1 [place] [address] [address] October, Cold thyroid nodule E04.1 [place] [address] [address] October, [place] [address] [address] Sep, Thyroid nodule E04.1 [place] [address] [address] Sep, Thyroid nodule E04.1 [place] [address] [address] Sep, Thyroid nodule E04.1 ; Hyper tension I10 ; Esophageal reflux K21.9 and Hyperlipidemia, unspecified E78.5 [place] [address] [address] Aug, Other chronic pain G89.29 ; Sinusitis J32.9 and Hypertension I10 [place] [address] [address] 29 Jul, 2015 [facility] [address] [facility] [id number] [address] [place] [address] 15 Jul, 2015 [facility] [address] [place] [id number] [address] [place] [address] 10 Jul, 2015 Insomnia G47.00 and Arthralg ia M25.50 [facility] [address] [place] [id number] [address] [place] [address] 10 Jul, 2015 Depressive disorder F32.9 an d Anxiety disorder, unspecified F41.9 [facility] [address] [place] [id number] [address] [place] [address] May, Right-sided low back pain wi thout sciatica M54.5 and Depression F32.9 [place] [address] [address] Apr, Hematuria R31.9 [facility] [address] [address] Mar, Other chronic pain G89.29 [place] [address] [address] Mar, Other chronic pain G89.29 [facility] [address] [place] [id number] [address] [place] [address] Feb, [facility] [address] [place] [id number] [address] [place] [address] 22 Feb, 2015 Other chronic pain 338.29 ; Dysuria 788.1 ; UTI (urinary tract infection) 599.0 ; Insomnia 780.52 ; Hot flashes 627.2 and Hypertension 401.9 [facility] [address] [place] [id number] [address] [place] [address] 14 Feb, 2015 Dysuria 788.1 [facility] [address] [place] [id number] [address] [place] [address] 02 Feb, 2015 [facility] [address] [place] [address] [address] Jan, [facility] [address] [id number] [address] [place] [address] Jan, [facility] [address] [id number] [address] [place] [address] Jan, Fibromyalgia 729.1 ; Hyperte nsion 401.9 ; Dysthymia 300.4 and Hot flashes 627.2 [facility] [address] [id number] [address] [place] [address] Dec, [facility] [address] [id number] [address] [place] [address] Dec, [facility] [address] [id number] [address] [place] [address] Dec, [facility] [address] [id number] [address] [place] [address] Nov, Other chronic pain 338.29 [facility] [address] [id number] [address] [place] [address] October, [facility] [address] [id number] [address] [place] [address] October, [facility] [address] [id number] [address] [place] [address] Sep, [facility] [address] [id number] [address] [place] [address] Sep, [facility] [address] [id number] [address] [place] [address] Aug, [facility] [address] [id number] [address] [place] [address] Aug, [facility] [address] [id number] [address] [place] [address] Aug, [facility] [address] [id number] [address] [place] [address] Aug, [facility] [address] [id number] [facility] [place] [address] Aug, [facility] [place] [facility] [address] [id number] [address] [place] [address], [place] [address] Aug, [facility] [place] [facility] [address] [id number] [address] [place] [address], [place] [address] Aug, [facility] [place] [facility] [address] [id number] [address] [place] [address], [place] [address] Aug, [facility] [address] [id number] [address] [place] [address], [place] [address] Aug, [facility] [place] [facility] [address] [id number] [address] [place] [address], [place] [address] Aug, [facility] [address] [id number] [address] [place] [address], [place] [address] Aug, [facility] [address] [id number] [address] [place] [address], [place] [address] Aug, [facility] [address] [id number] [address] [place] [address], [place] [address] Aug, [facility] [place] [facility] [address] [id number] [address] [place] [address], [place] [address] Aug, [facility] [place] [facility] [address] [id number] [address] [place] [address], [place] [address] Jul, [facility] [place] [facility] [address] [id number] [address] [place] [address], [place] [address] Jul, [facility] [place] [facility] [address] [id number] [address] [place] [address], [place] [address] Jul, [facility] [place] [facility] [address] [id number] [address] [place] [address], [place] [address] Jul, [facility] [place] [facility] [address] [id number] [address] [place] [address], [place] [address] Jul, [facility] [place] [facility] [address] [id number] [address] [place] [address], [place] [address] 12 Jul, 2014 [facility] [address] [id number] [address] [place] [address], [place] [address] Jun, [facility] [address] [id number] [address] [place] [address], [place] [address] 15 Jun, 2014 [facility] [address] [id number] [address] [place] [address], [place] [address] Jun, [facility] [address] [id number] [address] [place] [address], [place] [address] Jun, [facility] [address] [id number] [address] [place] [address], [place] [address] May, [facility] [address] [id number] [address] [place] [address], [place] [address] May, [facility] [address] [id number] [address] [place] [address], [place] [address] May, [facility] [address] [id number] [address] [place] [address], [place] [address] May, [facility] [address] [id number] [address] [place] [address], [place] [address] May, [facility] [address] [id number] [address] [place] [address], [place] [address] May, [facility] [address] [id number] [address] [place] [address], [place] [address] May, [facility] [address] [id number] [address] [place] [address], [place] [address] May, [facility] [address] [id number] [address] [place] [address], [place] [address] May, [facility] [address] [id number] [address] [place] [address], [place] [address] May, [facility] [address] [id number] [address] [place] [address], [place] [address] Apr, [facility] [address] [id number] [address] [place] [address], [place] [address] Apr, [facility] [place] [facility] [address] [id number] [address] [place] [address], [place] [address] Apr, [facility] [place] [facility] [address] [id number] [address] [place] [address], [place] [address] Apr, [facility] [place] [facility] [address] [id number] [address] [place] [address], [place] [address] Apr, [facility] [address] [id number] [address] [place] [address], [place] [address] Apr, [facility] [place] [facility] [address] [id number] [address] [place] [address], [place] [address] Apr, [facility] [address] [id number] [address] [place] [address], [place] [address] Apr, [facility] [place] [facility] [address] [id number] [address] [place] [address], [place] [address] Apr, [facility] [address] [id number] [address] [place] [address], [place] [address] Mar, [facility] [place] [facility] [address] [id number] [address] [place] [address], [place] [address] Mar, [facility] [place] [facility] [address] [id number] [address] [place] [address], [place] [address] Mar, [facility] [place] [facility] [address] [id number] [address] [place] [address], [place] [address] Mar, [facility] [place] [facility] [address] [id number] [address] [place] [address], [place] [address] Mar, [facility] [place] [facility] [address] [id number] [address] [place] [address], [place] [address] Mar, [facility] [place] [facility] [address] [id number] [address] [place] [address], [place] [address] Mar, [facility] [place] [facility] [address] [id number] [address] [place] [address], [place] [address] 08 Mar, 2014 [facility] [address] [id number] [address] [place] [address], [place] [address] 30 Sep, 2013 [facility] [place] [facility] [address] [id number] [address] [place] [address], [place] [address] 30 Feb, 2013 [facility] [address] [id number] [address] [place] [address], [place] [address] 24 Feb, 2013 [facility] [place] [facility] [address] [id number] [address] [place] [address], [place] [address] 24 Feb, 2013 [facility] [address] [id number] [address] [place] [address], [place] [address] 22 Feb, 2013 [facility] [address] [id number] [address] [place] [address], [place] [address] 22 Feb, 2013 [facility] [address] [id number] [address] [place] [address], [place] [address] 10 Feb, 2013 [facility] [place] [facility] [address] [id number] [address] [place] [address], [place] [address] 10 Feb, 2013 [facility] [address] [id number] [address] [place] [address], [place] [address] 03 Feb, 2013 [facility] [place] [facility] [address] [id number] [address] [place] [address], [place] [address] 03 Feb, 2013 [facility] [place] [facility] [address] [id number] [address] [place] [address], [place] [address] 03 Feb, 2013 [facility] [place] [facility] [address] [id number] [address] [place] [address], [place] [address] 03 Feb, 2013 [facility] [place] [facility] [address] [id number] [address] [place] [address], [place] [address] 03 Feb, 2013 [facility] [place] [facility] [address] [id number] [address] [place] [address], [place] [address] 03 Feb, 2013 [facility] [place] [facility] [address] [id number] [address] [place] [address], [place] [address] Jan, [facility] [place] [facility] [address] [id number] [facility] [place] [address] Jan, [facility] [address] [id number] [address] [place] [address], [place] [address] Dec, [facility] [address] [id number] [address] [place] [address], [place] [address] Dec, [facility] [address] [id number] [address] [place] [address], [place] [address] Dec, [facility] [address] [id number] [address] [place] [address], [place] [address] Dec, [facility] [address] [id number] [address] [place] [address], [place] [id number] Dec, [facility] [address] [id number] [address] [place] [address], [place] [address] Dec, [facility] [address] [id number] [address] [place] [address], [place] [address] Dec, [facility] [address] [id number] [address] [place] [address], [place] [address] Dec, [facility] [address] [id number] [address] [place] [address], [place] [address] Dec, [facility] [address] [id number] [address] [place] [address], [place] [address] Dec, [facility] [address] [id number] [address] [place] [address], [place] [address] Dec, [facility] [address] [id number] [address] [place] [address], [place] [address] Dec, [facility] [address] [id number] [address] [place] [address], [place] [address] Dec, [facility] [address] [id number] [address] [place] [address], [place] [address] Dec, [facility] [address] [id number] [address] [place] [address], [place] [address] Dec, [facility] [address] [id number] [address] [place] [address], [place] [address] Dec, [facility] [address] [id number] [address] [place] [address], [place] [address] Dec, [facility] [address] [id number] [address] [place] [address], [place] [address] Dec, [facility] [address] [id number] [address] [place] [address], [place] [address] Dec, [facility] [address] [id number] [address] [place] [address], [place] [address] Nov, [facility] [address] [id number] [address] [place] [address], [place] [address] Nov, [facility] [address] [id number] [address] [place] [address], [place] [address] Nov, [facility] [address] [id number] [address] [place] [address], [place] [address] Nov, [facility] [address] [id number] [address] [place] [address], [place] [address] Nov, [facility] [address] [id number] [address] [place] [address], [place] [address] Nov, [facility] [address] [id number] [address] [place] [address], [place] [address] Nov, [facility] [address] [id number] [address] [place] [address], [place] [address] Nov, [facility] [address] [id number] [address] [place] [address], [place] [address] Nov, [facility] [address] [id number] [address] [place] [address], [place] [address] October, [facility] [facility] [address] [id number] [address] [place] [address], [place] [address] October, [facility] [address] [id number] [address] [place] [address], [place] [address] October, [facility] [address] [id number] [address] [place] [address], [place] [address] October, [facility] [address] [id number] [address] [place] [address], [place] [address] October, [facility] [address] [id number] [address] [place] [address], [place] [address] October, [facility] [address] [id number] [address] [place] [address], [place] [address] October, [facility] [address] [id number] [address] [place] [address], [place] [address] October, [facility] [address] [id number] [address] [place] [address], [place] [address] Sep, [facility] [address] [id number] [address] [place] [address], [place] [address] Sep, [facility] [address] [id number] [address] [place] [address], [place] [address] Sep, [facility] [address] [id number] [address] [place] [address], [place] [address] Sep, [facility] [address] [id number] [address] [place] [address], [place] [address] Sep, [facility] [address] [id number] [address] [place] [address], [place] [address] Sep, [facility] [address] [id number] [address] [place] [address], [place] [address] Sep, [facility] [address] [id number] [address] [place] [address], [place] [address] Aug, [facility] [address] [id number] [address] [place] [address], [place] [address] Aug, [facility] [address] [id number] [address] [place] [address], [place] [address] Aug, [facility] [address] [id number] [address] [place] [address], [place] [address] Aug, [facility] [address] [id number] [address] [place] [address], [place] [address] Aug, [facility] [address] [id number] [address] [place] [address], [place] [address] Aug, [facility] [address] [id number] [address] [place] [address], [place] [address] Jul, [facility] [address] [id number] [address] [place] [address], [place] [address] Jul, [facility] [address] [id number] [address] [place] [address], [place] [address] Jul, [facility] [address] [id number] [address] [place] [address], [place] [address] Jul, [facility] [address] [id number] [address] [place] [address], [place] [address] Jul, [facility] [address] [id number] [address] [place] [address], [place] [address] Jul, [facility] [address] [id number] [address] [place] [address], [place] [address] Jun, [facility] [address] [id number] [address] [place] [address], [place] [address] Jun, [facility] [address] [id number] [address] [place] [address], [place] [address] Jun, [facility] [address] [id number] [address] [place] [address], [place] [address] Jun, [facility] [address] [id number] [address] [place] [address], [place] [address] Jun, [facility] [address] [id number] [address] [place] [address], [place] [address] Jun, [facility] [address] [id number] [address] [place] [address], [place] [address] Jun, [facility] [address] [id number] [address] [place] [address], [place] [address] Jun, [facility] [address] [id number] [address] [place] [address], [place] [address] Jun, [facility] [address] [id number] [address] [place] [address], [place] [address] Jun, [facility] [address] [id number] [address] [place] [address], [place] [address] Jun, [facility] [address] [id number] [address] [place] [address], [place] [address] Jun, [facility] [address] [id number] [address] [place] [address], [place] [address] Jun, [facility] [address] [id number] [address] [place] [address], [place] [address] 30 May, 2013 [facility] [address] [id number] [address] [place] [address], [place] [address] 30 May, 2013 [facility] [address] [id number] [address] [place] [address], [place] [address] May, [facility] [address] [id number] [address] [place] [address], [place] [address] 30 May, 2013 [facility] [address] [id number] [address] [place] [address], [place] [address] May, [facility] [address] [id number] [address] [place] [address], [place] [address] May, [facility] [address] [id number] [address] [place] [address], [place] [address] May, [facility] [address] [id number] [address] [place] [address], [place] [address] May, [facility] [address] [id number] [address] [place] [address], [place] [address] May, [facility] [address] [id number] [address] [place] [address], [place] [address] 11 May, 2013 [facility] [address] [id number] [address] [place] [address], [place] [address] May, [facility] [address] [id number] [address] [place] [address], [place] [address] May, [facility] [address] [id number] [address] [place] [address], [place] [address] May, [facility] [address] [id number] [address] [place] [address], [place] [address] May, [facility] [address] [id number] [address] [place] [address], [place] [address] May, [facility] [address] [id number] [address] [place] [address], [place] [address] 08 May, 2013 [facility] [address] [id number] [address] [place] [address], [place] [address] May, [facility] [address] [id number] [address] [place] [address], [place] [address] May, [facility] [address] [id number] [address] [place] [address], [place] [address] May, [facility] [address] [id number] [address] [place] [address], [place] [address] May, [facility] [address] [id number] [address] [place] [address], [place] [address] May, [facility] [address] [id number] [address] [place] [address], [place] [address] Apr, [facility] [address] [id number] [address] [place] [address], [place] [address] Apr, [facility] [address] [id number] [address] [place] [address], [place] [address] Apr, [facility] [address] [id number] [address] [place] [address], [place] [address] Apr, [facility] [address] [id number] [address] [place] [address], [place] [address] 08 Mar, 2013 [facility] [address] [id number] [address] [place] [address], [place] [address] 23 Feb, 2013 [facility] [address] [id number] [address] [place] [address], [place] [address] 16 Feb, 2013 [facility] [address] [id number] [address] [place] [address], [place] [address] 13 Feb, 2013 [facility] [address] [id number] [address] [place] [address], [place] [address] 10 Feb, 2013 [facility] [address] [id number] [address] [place] [address], [place] [address] 09 Feb, 2013 [facility] [address] [id number] [address] [place] [address], [place] [address] Feb, [facility] [address] [id number] [address] [place] [address], [place] [address] Jan, [facility] [address] [id number] [address] [place] [address], [place] [address] Jan, [facility] [address] [id number] [address] [place] [address], [place] [address] Jan, [facility] [address] [id number] [address] [place] [address], [place] [address] Dec, [facility] [address] [id number] [address] [place] [address], [place] [address] Dec, [facility] [address] [id number] [address] [place] [address], [place] [address] Dec, [facility] [address] [id number] [address] [place] [address], [place] [address] 15 Dec, 2012 [facility] [address] [id number] [address] [place] [address], [place] [address] Dec, [facility] [address] [id number] [address] [place] [address], [place] [address] 26 Nov, 2012 [facility] [address] [id number] [address] [place] [address], [place] [address] 26 Nov, 2012 [facility] [address] [id number] [address] [place] [address], [place] [address] 20 Nov, 2012 [facility] [address] [id number] [address] [place] [address], [place] [address] 13 Nov, 2012 [facility] [address] [id number] [address] [place] [address], [place] [address] 12 Nov, 2012 [facility] [address] [id number] [address] [place] [address], [place] [address] 08 Nov, 2012 [facility] [address] [id number] [address] [place] [address], [place] [address] 07 Nov, 2012 [facility] [address] [id number] [address] [place] [address], [place] [address] 06 Nov, 2012 [facility] [address] [id number] [address] [place] [address], [place] [address] 05 Nov, 2012 [facility] [address] [id number] [address] [place] [address], [place] [address] 04 Nov, 2012 [facility] [address] [id number] [address] [place] [address], [place] [address] October, [facility] [address] [id number] [address] [place] [address], [place] [address] October, [facility] [address] [id number] [address] [place] [address], [place] [address] Sep, [facility] [address] [id number] [address] [place] [address], [place] [address] 08 Sep, 2012 [facility] [address] [id number] [address] [place] [address], [place] [address] 08 Sep, 2012 [facility] [address] [id number] [address] [place] [address], [place] [address] 06 Sep, 2012 [facility] [address] [id number] [address] [place] [address], [place] [address] Sep, [facility] [address] [id number] [address] [place] [address], [place] [address] Aug, [facility] [address] [id number] [address] [place] [address], [place] [address] Aug, [facility] [address] [id number] [address] [place] [address], [place] [address] Jul, [facility] [address] [id number] [address] [place] [address], [place] [address] Jul, [facility] [address] [id number] [address] [place] [address], [place] [address] Jun, [facility] [address] [id number] [address] [place] [address], [place] [address] Jun, [facility] [address] [id number] [address] [place] [address], [place] [address] May, [facility] [address] [id number] [address] [place] [address], [place] [address] May, [facility] [address] [id number] [address] [place] [address], [place] [address] May, [facility] [address] [id number] [address] [place] [address], [place] [address] May, [facility] [address] [id number] [address] [place] [address], [place] [address] Apr, [facility] [address] [id number] [address] [place] [address], [place] [address] Apr, [facility] [address] [id number] [address] [place] [address], [place] [address] Apr, [facility] [address] [id number] [address] [place] [address], [place] [address] Apr, [facility] [address] [id number] [address] [place] [address], [place] [address] Apr, [facility] [address] [id number] [address] [place] [address], [place] [address] Apr, [facility] [address] [id number] [address] [place] [address], [place] [address] Apr, [facility] [address] [id number] [address] [place] [address], [place] [address] Apr, [facility] [address] [id number] [address] [place] [address], [place] [address] Apr, [facility] [address] [id number] [address] [place] [address], [place] [address] Mar, [facility] [address] [id number] [address] [place] [address], [place] [address] Mar, [facility] [address] [id number] [address] [place] [address], [place] [address] Feb, [facility] [address] [id number] [address] [place] [address], [place] [address] Jan, [facility] [address] [id number] [address] [place] [address], [place] [address] Jan, [facility] [address] [id number] [address] [place] [address], [place] [address] Dec, [facility] [address] [id number] [address] [place] [address], [place] [address] Nov, [facility] [address] [id number] [address] [place] [address] Nov, [facility] [address] [id number] [address] [place] [address], [place] [address] October, [facility] [address] [id number] [address] [place] [address], [place] [address] October, [facility] [address] [id number] [address] [place] [address], [place] [address] Sep, [facility] [address] [id number] [address] [place] [address], [place] [address] Sep, [facility] [address] [id number] [address] [place] [address], [place] [address] May, [facility] [address] [id number] [address] [place] [address], [place] [address] Apr, [facility] [address] [id number] [address] [place] [address], [place] [address] Apr, [facility] [address] [id number] [address] [place] [address], [place] [address] Apr, [facility] [address] [id number] [address] [place] [address], [place] [address] Apr, [facility] [address] [id number] [address] [place] [address], [place] [address] Apr, [facility] [address] [id number] [address] [place] [address], [place] [address] Apr, [facility] [address] [id number] [address] [place] [address], [place] [address] Apr, [facility] [address] [id number] [address] [place] [address], [place] [address] Apr, [facility] [address] [id number] [address] [place] [address], [place] [address] Mar, [facility] [address] [id number] [address] [place] [address], [place] [address] Mar, [facility] [address] [id number] [address] [place] [address], [place] [address] Mar, [facility] [address] [id number] [address] [place] [address], [place] [address] Mar, [facility] [address] [id number] [address] [place] [address], [place] [address] Mar, [facility] [address] [id number] [address] [place] [address], [place] [address] Mar, IMMUNIZATIONS No Known Immunizations SOCIAL HISTORY Never Assessed REASON FOR VISIT [facility] [place] PLAN OF CARE VITAL SIGNS MEDICATIONS Medication Instructions Dosage Frequency Start Date End Date Duration S tatus Cipro 500 mg 1 tablet by Oral route every 12 hours for 10 day(s) Sep, Active Cymbalta 30 mg 2 capsule by Oral route 1 time per day for 7 days Feb, Active Flagyl 500 mg 1 tablet by Oral rou te 2 times per day for 7 days take with food, avoid alcohol Nov, Active tramadol 50 mg take 2 tablet by Oral route ever y 8 hours as needed PRN pain Aug, Active Cefdinir 300 mg take 1 capsule (300 mg) by oral route every 12 hours for 10 days May, Active Omeprazole Magnesium 20 mg 1 capsule by Oral route 2 t imes per day Mar, Active Clindamycin HCl 300 mg 1 capsule by Oral route 3 times per day for 10 day(s) Apr, Active Nitrofurantoin Macrocrystal 100 mg 1 cap tosin by Oral route 2 times per day for 7 day(s) Nov, Active Cephalexin 500 mg take 1 capsule (500 mg) by oral route every 12 hours for 7 days May, Active Lisinopril-Hydrochlorothiazide 20-25 mg take 1 tablet by Oral route 1 time per day Take in AM Nov, Active Cymbalta 60 mg 1 capsule by Oral route 1 time per day Aug, Active Bactroban 2 % 1 farhana by Topical route 2 times per day f or 14 day(s) Apr, Active Bactrim DS 800-160 mg 1 tablet by Oral route 2 times p er day for 10 day(s) Apr, Active Clindamycin HCl 150 mg take 2 capsules ( 300 mg) by oral route every 6 hours for 10 days Dec, Active RESULTS No Results PROCEDURES No Known procedures INSTRUCTIONS MEDICATIONS ADMINISTERED No Known Medications MEDICAL (GENERAL) HISTORY Type Description Date Medical History HTN Medical History Depression Medical History Arthritis Medical History COPD Surgical History Breast lump removed Surgical History Removal of cyst from ovary Surgical History cholecystectomy Surgical History Stomach surgeryx3 Hospitalization History Mental floor [facility]
--- OUTSIDE RECORDS SUMMARY | 2019-12-24 20:06 | XMS REPORT ---
Author Author Deann Trey Doctor Organization [facility] Address Unknown Phone Unavailable Care Team Providers Care Rd Manager Name Role Phone Migration, Doctor Unavailable Unavailable PROBLEMS Type Condition ICD9-CM Code RMI18-VJ Code Onset Dates Condition S tatus SNOMED Code Problem Unspecified epilepsy without mention of intractable ep ilepsy G40.909 Active 25836171 Problem Hypertension I10 Active 7189738 3 Problem Other chronic pain G89.29 Active 1 63064958 Problem Rheumatoid arthritis M06.9 Active 73998977 Problem Hyperlipidemia, unspecified E78.5 Ac tive 69091152 Problem Depressive disorder F32.9 Active 65132722 Problem Esophageal reflux K21.9 Active 23 7209957 Problem Carpal tunnel syndrome of left wrist G56.02 Active 632553124572970 Problem Presbyopia H52.4 Active 23838893 Problem Cough R05 Active 96492246 Problem Nondependent 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 Ac tive 344467879 Problem Unspecified open-angle glaucoma, stage unspecified H40.10X0 Feb, Active 90975682 Problem Anxiety disorder, unspecified F41.9 Active 773186243 Problem Insomnia G47.00 Active 491319920 Problem Neuropathy G62.9 Active 395781243 Problem Thyroid nodule E04.1 Active 97279 5005 Problem Multinodular goiter E04.2 Active 343037029 Problem Chronic tension-type headache, intractable G44.221 Active 377948743 Problem Acquired hypothyroidism E03.9 Active 790303355 Problem Goiter E04.9 Active 4809477 Problem Chronic obstructive pulmonary disease, unspecified COPD ty pe J44.9 Active 03262276 Problem Reactive airway disease with out complication, unspecified asthma severity, unspecified whether persistent J45.909 Active 701260075955 Problem BMI 40.0-44.9, adult Z68.41 Active 572888333 Problem Essential hypertension I10 Active 69426681 Problem Right-sided low back pain without sciatica M54.5 Active 803981520 Problem Tension headache G44.209 Active 398 624533 Problem Depression F32.9 Active 05515326 Problem Arthralgia M25.50 Active 13703130 Problem Urge incontinence of urine N39.41 Act chen 73703418 Problem Abnormal laboratory test R89.9 Activ e 792565035 Problem COPD with exacerbation J44.1 Active 303522796 Problem Seasonal allergic rhinitis due to pollen J30.1 Active 25644187 ALLERGIES No Information ENCOUNTERS Encounter Location Date Diagnosis [facility] [address] [facility] [id number] [address] [place] [address] Dec, [facility] [address] [facility] [id number] [address] [place] [address] Dec, UTI symptoms R39.9 ; Vaginal discharge N89.8 and Vaginal yeast infection B37.3 [facility] [address] [place] [address] October, [facility] [address] [address] October, Thyroid nodule E04.1 and Mul tinodular goiter E04.2 [facility] [address] [facility] [id number] [address] [place] [id number] October, [facility] [address] [place] [address] October, Thyroid nodule E04.1 and Mul tinodular goiter E04.2 [facility] [address] [place] [id number] [address] [place] [address] Sep, Thyroid nodule E04.1 [facility] [address] [facility] [id number] [address] [place] [address] Sep, [facility] [address] [place] [id number] [address] [place] [address] Sep, Counseled by nurse Z71.9 and Thyroid nodule E04.1 [facility] [address] [place] [id number] [address] [place] [address] Sep, Acquired hypothyroidism E03. 9 ; Tension headache G44.209 ; Essential hypertension I10 ; Multinodular goiter E04.2 and BMI 40.0-44.9, adult Z68.41 [place] [address] [address] Aug, Pelvic pain R10.2 ; Other sp ecified bacterial agents as the cause of diseases classified elsewhere B96.89 and Acute vaginitis N76.0 [place] [address] [address] Apr, Bronchitis J40 [place] [address] [place] [id number] [address] [place] [address] Apr, Acute gastritis without hemo rrhage, unspecified gastritis type K29.00 [place] [address] [place] [id number] [address] [place] [address] Mar, [place] [address] [address] Feb, [place] [address] [place] [id number] [address] [place] [address] Feb, Mass of right side of neck R 22.1 and Multinodular goiter E04.2 [facility] [place] [address] [place] [id number] [address] [place] [address] Jan, Bronchitis J40 [place] [address] [place] [id number] [address] [place] [address] October, Acquired hypothyroidism E03. 9 [place] [address] [place] [id number] [address] [place] [address] October, Acute gastritis without hemo rrhage, unspecified gastritis type K29.00 ; Epigastric pain R10.13 ; Essential hypertension I10 ; Screening for colon cancer Z12.11 and BMI 40.0-44.9, adult Z68.41 [place] [address] [place] [id number] [address] [place] [address] October, [facility] [address] [address] October, Chest pain R07.9 and Morbid obesity E66.01 [facility] [place] [address] [address] Sep, Generalized abdominal pain R 10.84 ; Morbid obesity E66.01 ; Non-intractable vomiting with nausea, unspecified vomiting type R11.2 and Seasonal allergic rhinitis due to pollen J30.1 [facility] [place] [address] [address] 28 Jul, 2018 COPD with exacerbation J44.1 ; Viral upper respiratory tract infection J06.9 and Morbid obesity E66.01 [facility] [place] [address] [address] Jun, Viral upper respiratory trac t infection J06.9 [place] [address] [address] Apr, Abnormal laboratory test R89 .9 [place] [address] [address] Apr, Abnormal laboratory test R89 .9 [place] [address] [address] Apr, Abnormal laboratory test R89 .9 [place] [address] [address] Apr, [place] [address] [address] Apr, [place] [address] [address] Apr, Nonintractable episodic head ache, unspecified headache type R51 ; Urge incontinence of urine N39.41 ; BMI 40.0-44.9, adult Z68.41 ; Myalgia M79.10 and Acute cystitis without hematuria N30.00 [place] [address] [address] Mar, Nasal congestion R09.81 ; Lo w back pain M54.5 ; Reactive airway disease without complication, unspecified asthma severity, unspecified whether persistent J45.909 ; Other chronic pain G89.29 ; Acute cystitis with hematuria N30.01 and BMI 40.0-44.9, adult Z68.41 [facility] [address] [place] [id number] [address] [place] [address] Mar, Acute cystitis with hematuri a N30.01 [facility] [address] [place] [id number] [address] [place] [address] Mar, BMI 40.0-44.9, adult Z68.41 ; Acute cystitis with hematuria N30.01 ; Acute bilateral low back pain without sciatica M54.5 and Nausea R11.0 [place] [address] [address] Mar, Hypertension I10 ; Acquired hypothyroidism E03.9 ; Esophageal reflux K21.9 ; Chronic obstructive pulmonary disease, unspecified COPD type J44.9 and BMI 40.0-44.9, adult Z68.41 [place] [address] [address] Mar, Hypertension I10 [place] [address] [address] Nov, Hyperlipidemia, unspecified E78.5 [place] [address] [address] October, Chest pain, unspecified type R07.9 and Acquired hypothyroidism E03.9 [place] [address] [address] October, Chest pain, unspecified type R07.9 ; Family history of coronary artery disease Z82.49 ; Carpal tunnel syndrome of left wrist G56.02 ; Hypertension I10 ; Esophageal reflux K21.9 ; Arthralgia M25.50 ; Acquired hypothyroidism E03.9 ; Cough R05 ; Nausea R11.0 ; Weight gain R63.5 and BMI 45.0-49.9, adult Z68.42 [place] [address] [address] Jun, Acquired hypothyroidism E03. 9 and Cough R05 [place] [address] [address] May, [place] [address] [address] Feb, Tarsal tunnel syndrome of timi th lower extremities G57.53 and Neuropathy G62.9 [place] [address] [address] Dec, Pleuritis R09.1 [place] [address] [address] Nov, [place] [address] [address] October, Arthralgia, unspecified join t M25.50 and Allergy, initial encounter T78.40XA [place] [address] [address] October, [place] [address] [address] October, Acute recurrent maxillary si nusitis J01.01 and Arthralgia M25.50 [place] [address] [address] Sep, Pharyngitis due to other org anism J02.8 [place] [address] [address] Aug, Acute nasopharyngitis J00 [place] [address] [address] Aug, Multinodular goiter E04.2 [place] [address] [place] [address] Aug, Thyroid nodule E04.1 [place] [address] [address] Jul, Tarsal tunnel syndrome of timi th lower extremities G57.53 [place] [address] [address] Jun, Pneumonia due to infectious organism, unspecified laterality, unspecified part of lung J18.9 [place] [address] [address] Jun, Bronchospasm with bronchitis , acute J20.[address] [address] May, Acute non-recurrent frontal sinusitis J01.[address] [address] May, Flat foot [pes planus] (acqu ired), left foot M21.42 ; Flat foot [pes planus] (acquired), right foot M21.41 and Neuropathy G62.[address] [address] Apr, Chronic tension-type headach e, intractable G44.221 ; Right lower quadrant abdominal pain R10.31 ; Cervicalgia M54.2 ; Acute gastritis without hemorrhage, unspecified gastritis type K29.00 and Hypertension I10 [address] [address] Mar, Depression F32.9 and Anxiety disorder, unspecified F41.[address] [address] Feb, Depressive disorder F32.9 an d Anxiety disorder, unspecified F41.[address] [address] Jan, Dysuria R30.0 ; Lower abdomi nal pain R10.30 ; Acute bilateral low back pain without sciatica M54.5 ; Nausea and vomiting, unspecified intactability, vomiting of unspecified type R11.2 ; Pain in right foot M79.671 and Pain of left foot M79.672 [facility] [address] [facility] [id number] [address] [place] [address] Dec, Urinary tract infection, sit e not specified N39.0 [facility] [address] [place] [id number] [address] [place] [address] Dec, [place] [address] [place] [id number] [address] [place] [address] Nov, [place] [address] [place] [id number] [address] [place] [address] Nov, Dysuria R30.0 [place] [address] [place] [id number] [address] [place] [address] Nov, Dysuria R30.0 and Acute cyst itis with hematuria N30.01 [place] [address] [place] [id number] [address] [place] [address] October, Nausea R11.0 [place] [address] [place] [id number] [place] [address] October, Thyroid nodule E04.1 ; Carpa l tunnel syndrome, left upper limb G56.02 ; Carpal tunnel syndrome, right upper limb G56.01 and Constipation, unspecified constipation type K59.00 [place] [address] [place] [id number] [address] [place] [address] October, [place] [address] [place] [id number] [address] [place] [address] October, Thyroid nodule E04.1 [place] [address] [place] [id number] [place] [address] October, Cold thyroid nodule E04.1 [place] [address] [place] [id number] [address] [place] [address] October, [place] [id number] [facility] [id number] [address] [place] [address] Sep, Thyroid nodule E04.1 [place] [address] [facility] [id number] [address] [place] [address] Sep, Thyroid nodule E04.1 [facility] [address] [place] [id number] [address] [place] [address] Sep, Thyroid nodule E04.1 ; Hyper tension I10 ; Esophageal reflux K21.9 and Hyperlipidemia, unspecified E78.5 [place] [address] [facility] [id number] [address] [place] [address] Aug, Other chronic pain G89.29 ; Sinusitis J32.9 and Hypertension I10 [place] [address] [place] [id number] [place] [address] 29 Jul, 2015 [place] [address] [address] 15 Jul, 2015 [place] [address] [address] 10 Jul, 2015 Insomnia G47.00 and Arthralg ia M25.50 [place] [address] [place] [id number] [place] [address] 10 Jul, 2015 Depressive disorder F32.9 an d Anxiety disorder, unspecified F41.9 [place] [address] [place] [id number] [place] [address] May, Right-sided low back pain wi thout sciatica M54.5 and Depression F32.9 [place] [address] [place] [id number] [place] [address] Apr, Hematuria R31.9 [place] [address] [facility] [id number] [address] [place] [address] Mar, Other chronic pain G89.29 [place] [address] [place] [id number] [place] [address] Mar, Other chronic pain G89.29 [facility] [address] [id number] [address] [place] [address] Feb, [facility] [address] [facility] [id number] [address] [place] [address] Feb, Other chronic pain 338.29 ; Dysuria 788.1 ; UTI (urinary tract infection) 599.0 ; Insomnia 780.52 ; Hot flashes 627.2 and Hypertension 401.9 [facility] [address] [id number] [address] [place] [address] 14 Feb, 2015 Dysuria 788.1 [facility] [address] [facility] [id number] [address] [place] [address] Feb, [facility] [address] [facility] [id number] [address] [place] [address] Jan, [facility] [address] [facility] [id number] [address] [place] [address] Jan, [facility] [address] [facility] [id number] [address] [place] [address] Jan, Fibromyalgia 729.1 ; Hyperte nsion 401.9 ; Dysthymia 300.4 and Hot flashes 627.2 [facility] [address] [facility] [id number] [address] [place] [address] Dec, [facility] [address] [facility] [id number] [address] [place] [address] Dec, [facility] [address] [facility] [id number] [address] [place] [address] Dec, [facility] [address] [facility] [id number] [address] [place] [address] Nov, Other chronic pain 338.29 [facility] [address] [facility] [id number] [address] [place] [address] October, [facility] [address] [id number] [address] [place] [address], [place] [id number] 15 Oct, 2014 [facility] [address] [id number] [address] [place] [address], [place] [id number] 14 Sep, 2014 [facility] [address] [id number] [address] [place] [address], [place] [id number] 13 Sep, 2014 [facility] [address] [id number] [address] [place] [address], [place] [id number] 26 Aug, 2014 [facility] [address] [id number] [address] [place] [address], [place] [id number] Aug, [facility] [address] [id number] [address] [place] [address], [place] [id number] Aug, [facility] [address] [id number] [address] [place] [address], [place] [id number] Aug, [facility] [address] [id number] [address] [place] [address], [place] [id number] Aug, [facility] [address] [id number] [address] [place] [address], [place] [id number] Aug, [facility] [address] [id number] [address] [place] [address], [place] [id number] Aug, [facility] [address] [id number] [address] [place] [address], [place] [id number] Aug, [facility] [address] [id number] [address] [place] [address], [place] [id number] Aug, [facility] [address] [id number] [address] [place] [address], [place] [id number] Aug, [facility] [address] [id number] [address] [place] [address], [place] [id number] 09 Aug, 2014 [facility] [address] [id number] [address] [place] [address], [place] [id number] Aug, [facility] [address] [id number] [address] [place] [address], [place] [id number] Aug, [facility] [address] [id number] [address] [place] [address], [place] [id number] Aug, [facility] [address] [id number] [address] [place] [address], [place] [id number] Jul, [facility] [address] [id number] [address] [place] [address], [place] [id number] Jul, [facility] [address] [id number] [address] [place] [address], [place] [id number] Jul, [facility] [address] [id number] [address] [place] [address], [place] [id number] Jul, [facility] [address] [id number] [address] [place] [address], [place] [id number] Jul, [facility] [address] [id number] [address] [place] [address], [place] [id number] Jul, [facility] [address] [id number] [address] [place] [address], [place] [id number] Jun, [facility] [address] [id number] [address] [place] [address], [place] [id number] Jun, [facility] [address] [id number] [address] [place] [address], [place] [id number] Jun, [facility] [address] [id number] [address] [place] [address], [place] [id number] Jun, [facility] [address] [id number] [address] [place] [address], [place] [id number] May, [facility] [address] [id number] [address] [place] [address], [place] [id number] May, [facility] [address] [id number] [address] [place] [address], [place] [id number] May, [facility] [address] [id number] [address] [place] [address], [place] [id number] May, [facility] [address] [id number] [address] [place] [address], [place] [id number] May, [facility] [address] [id number] [address] [place] [address], [place] [id number] May, [facility] [address] [id number] [address] [place] [address], [place] [id number] May, [facility] [address] [id number] [address] [place] [address], [place] [id number] May, [facility] [address] [id number] [address] [place] [address], [place] [id number] May, [facility] [address] [id number] [address] [place] [address], [place] [id number] May, [facility] [address] [id number] [address] [place] [address], [place] [id number] Apr, [facility] [address] [id number] [address] [place] [address], [place] [id number] Apr, [facility] [address] [id number] [address] [place] [address], [place] [id number] Apr, [facility] [address] [id number] [address] [place] [address], [place] [id number] Apr, [facility] [address] [id number] [address] [place] [address], [place] [id number] Apr, [facility] [address] [id number] [address] [place] [address], [place] [id number] Apr, [facility] [address] [id number] [address] [place] [address], [place] [id number] Apr, [facility] [address] [id number] [address] [place] [address], [place] [id number] Apr, [facility] [address] [id number] [address] [place] [address], [place] [id number] Apr, [facility] [address] [id number] [address] [place] [address], [place] [id number] Mar, [facility] [address] [id number] [address] [place] [address], [place] [id number] 30 Mar, 2014 [facility] [address] [id number] [address] [place] [address], [place] [id number] Mar, [facility] [address] [id number] [address] [place] [address], [place] [id number] Mar, [facility] [address] [id number] [address] [place] [address], [place] [id number] Mar, [facility] [address] [id number] [address] [place] [address], [place] [id number] Mar, [facility] [address] [id number] [address] [place] [address], [place] [id number] Mar, [facility] [address] [id number] [address] [place] [address], [place] [id number] Mar, [facility] [address] [id number] [address] [place] [address], [place] [id number] 30 Feb, 2013 [facility] [address] [id number] [address] [place] [address], [place] [id number] 30 Feb, 2013 [facility] [address] [id number] [address] [place] [address], [place] [id number] 24 Feb, 2013 [facility] [address] [id number] [address] [place] [address], [place] [id number] 24 Sep, 2013 [facility] [address] [id number] [address] [place] [address], [place] [id number] 22 Sep, 2013 [facility] [address] [id number] [address] [place] [address], [place] [id number] 22 Sep, 2013 [facility] [address] [id number] [address] [place] [address], [place] [id number] 10 Feb, 2013 [facility] [address] [id number] [address] [place] [address], [place] [id number] 10 Feb, 2013 [facility] [address] [id number] [address] [place] [address], [place] [id number] Feb, 2013 [facility] [address] [id number] [facility] [place] [id number] Feb, 2013 [facility] [address] [id number] [address] [place] [address], [place] [id number] Feb, [facility] [address] [id number] [address] [place] [address], [place] [id number] Feb, 2013 [facility] [address] [id number] [address] [place] [address], [place] [id number] Feb, 2013 [facility] [address] [id number] [address] [place] [address], [place] [id number] Feb, [facility] [address] [id number] [address] [place] [address], [place] [id number] Jan, [facility] [address] [id number] [address] [place] [address], [place] [id number] Jan, [facility] [address] [id number] [address] [place] [address], [place] [id number] Dec, [facility] [address] [id number] [address] [place] [address], [place] [id number] Dec, [facility] [address] [id number] [address] [place] [address], [place] [id number] Dec, [facility] [address] [id number] [address] [place] [address], [place] [id number] Dec, [facility] [address] [id number] [address] [place] [id number] Dec, [facility] [address] [id number] [address] [place] [address], [place] [id number] Dec, [facility] [address] [id number] [address] [place] [address], [place] [id number] Dec, [facility] [address] [id number] [address] [place] [address], [place] [id number] Dec, [facility] [address] [id number] [facility] [place] [id number] 14 Dec, 2013 [facility] [address] [id number] [address] [place] [address], [place] [id number] 14 Dec, 2013 [facility] [address] [id number] [address] [place] [address], [place] [id number] Dec, 2013 [facility] [address] [address] [id number] [address] [place] [address], [place] [id number] Dec, 2013 [facility] [address] [id number] [address] [place] [address], [place] [id number] Dec, 2013 [facility] [address] [id number] [address] [place] [address], [place] [id number] Dec, 2013 [facility] [address] [id number] [address] [place] [address], [place] [id number] Dec, 2013 [facility] [address] [id number] [address] [place] [address], [place] [id number] Dec, 2013 [facility] [address] [id number] [address] [place] [address], [place] [id number] Dec, 2013 [facility] [address] [id number] [address] [place] [address], [place] [id number] Dec, [facility] [address] [id number] [address] [place] [address], [place] [id number] Dec, [facility] [address] [id number] [address] [place] [address], [place] [id number] Nov, [facility] [address] [id number] [address] [place] [address], [place] [id number] Nov, [facility] [address] [id number] [address] [place] [address], [place] [id number] Nov, [facility] [address] [id number] [address] [place] [address], [place] [id number] Nov, [facility] [address] [id number] [address] [place] [address], [place] [id number] Nov, [facility] [address] [id number] [address] [place] [address], [place] [id number] Nov, [facility] [address] [id number] [address] [place] [address], [place] [id number] Nov, [facility] [address] [id number] [address] [place] [address], [place] [id number] Nov, [facility] [address] [id number] [address] [place] [address], [place] [id number] Nov, [facility] [address] [id number] [address] [place] [address], [place] [id number] October, [facility] [address] [id number] [address] [place] [address], [place] [id number] October, [facility] [address] [id number] [address] [place] [address], [place] [id number] October, [facility] [address] [id number] [address] [place] [address], [place] [id number] October, [facility] [address] [id number] [address] [place] [address], [place] [id number] October, [facility] [address] [id number] [address] [place] [address], [place] [id number] October, [facility] [address] [id number] [address] [place] [address], [place] [id number] October, [facility] [address] [id number] [address] [place] [address], [place] [id number] October, [facility] [address] [id number] [address] [place] [address], [place] [id number] Sep, [facility] [address] [id number] [address] [place] [address], [place] [id number] Sep, [facility] [address] [id number] [address] [place] [address], [place] [id number] Sep, [facility] [address] [id number] [address] [place] [address], [place] [id number] Sep, [facility] [address] [id number] [address] [place] [address], [place] [id number] Sep, [facility] [address] [id number] [address] [place] [address], [place] [id number] Sep, [facility] [address] [id number] [address] [place] [address], [place] [id number] Sep, [facility] [address] [id number] [address] [place] [address], [place] [id number] Aug, [facility] [address] [id number] [address] [place] [address], [place] [id number] Aug, [facility] [address] [id number] [address] [place] [address], [place] [id number] Aug, [facility] [address] [id number] [address] [place] [address], [place] [id number] Aug, [facility] [address] [id number] [address] [place] [address], [place] [id number] Aug, [facility] [address] [id number] [address] [place] [address], [place] [id number] Aug, [facility] [address] [id number] [address] [place] [address], [place] [id number] Jul, [facility] [address] [id number] [address] [place] [address], [place] [id number] Jul, [facility] [address] [id number] [address] [place] [address], [place] [id number] Jul, [facility] [address] [id number] [address] [place] [address], [place] [id number] Jul, [facility] [address] [id number] [address] [place] [address], [place] [id number] Jul, [facility] [address] [id number] [address] [place] [address], [place] [id number] Jul, [facility] [address] [id number] [address] [place] [address], [place] [id number] Jun, [facility] [address] [id number] [address] [place] [address], [place] [id number] Jun, [facility] [address] [id number] [address] [place] [address], [place] [id number] Jun, [facility] [address] [id number] [address] [place] [address], [place] [id number] Jun, [facility] [address] [id number] [address] [place] [address], [place] [id number] Jun, [facility] [address] [id number] [address] [place] [address], [place] [id number] Jun, [facility] [address] [id number] [address] [place] [address], [place] [id number] Jun, [facility] [address] [id number] [address] [place] [address], [place] [id number] Jun, [facility] [address] [id number] [address] [place] [address], [place] [id number] Jun, [facility] [address] [id number] [address] [place] [address], [place] [id number] Jun, [facility] [address] [id number] [address] [place] [address], [place] [id number] Jun, [facility] [address] [id number] [address] [place] [address], [place] [id number] Jun, [facility] [address] [id number] [address] [place] [address], [place] [id number] Jun, [facility] [address] [id number] [address] [place] [address], [place] [id number] May, [facility] [address] [id number] [address] [place] [address], [place] [id number] May, [facility] [address] [id number] [address] [place] [address], [place] [id number] 30 May, 2013 [facility] [address] [id number] [address] [place] [address], [place] [id number] 30 May, 2013 [facility] [address] [id number] [address] [place] [address], [place] [id number] May, [facility] [address] [id number] [address] [place] [address], [place] [id number] 14 May, 2013 [facility] [address] [id number] [address] [place] [address], [place] [id number] 14 May, 2013 [facility] [address] [id number] [address] [place] [address], [place] [id number] May, [facility] [address] [id number] [address] [place] [address], [place] [id number] May, [facility] [address] [id number] [address] [place] [address], [place] [id number] May, [facility] [address] [id number] [address] [place] [address], [place] [id number] May, [facility] [address] [id number] [address] [place] [address], [place] [id number] May, [facility] [address] [id number] [address] [place] [address], [place] [id number] May, [facility] [address] [id number] [address] [place] [address], [place] [id number] May, [facility] [address] [id number] [address] [place] [address], [place] [id number] 09 May, 2013 [facility] [address] [id number] [address] [place] [address], [place] [id number] 08 May, 2013 [facility] [address] [id number] [address] [place] [address], [place] [id number] 07 May, 2013 [facility] [address] [id number] [address] [place] [address], [place] [id number] 06 May, 2013 [facility] [address] [id number] [address] [place] [address], [place] [id number] May, [facility] [address] [id number] [address] [place] [address], [place] [id number] May, [facility] [address] [id number] [address] [place] [address], [place] [id number] May, [facility] [address] [id number] [address] [place] [address], [place] [id number] Apr, [facility] [address] [id number] [address] [place] [address], [place] [id number] Apr, [facility] [address] [id number] [address] [place] [address], [place] [id number] Apr, [facility] [address] [id number] [address] [place] [address], [place] [id number] Apr, [facility] [address] [id number] [address] [place] [address], [place] [id number] Mar, [facility] [address] [id number] [address] [place] [address], [place] [id number] 23 Feb, 2013 [facility] [address] [id number] [address] [place] [address], [place] [id number] 16 Feb, 2013 [facility] [address] [id number] [address] [place] [address], [place] [id number] 13 Feb, 2013 [facility] [address] [id number] [address] [place] [address], [place] [id number] 10 Feb, 2013 [facility] [address] [id number] [address] [place] [address], [place] [id number] 09 Feb, 2013 [facility] [address] [id number] [address] [place] [address], [place] [id number] Feb, [facility] [address] [id number] [address] [place] [address], [place] [id number] Jan, [facility] [address] [id number] [address] [place] [address], [place] [id number] Jan, [facility] [address] [id number] [address] [place] [address], [place] [id number] Jan, [facility] [address] [id number] [address] [place] [address], [place] [id number] Dec, [facility] [address] [id number] [address] [place] [address], [place] [id number] Dec, [facility] [address] [id number] [address] [place] [address], [place] [id number] Dec, [facility] [address] [id number] [address] [place] [address], [place] [id number] Dec, [facility] [address] [id number] [address] [place] [address], [place] [id number] Dec, [facility] [address] [id number] [address] [place] [address], [place] [id number] Nov, [facility] [address] [id number] [address] [place] [address], [place] [id number] Nov, [facility] [address] [id number] [address] [place] [address], [place] [id number] Nov, [facility] [address] [id number] [address] [place] [address], [place] [id number] Nov, [facility] [address] [id number] [address] [place] [address], [place] [id number] Nov, [facility] [address] [id number] [address] [place] [address], [place] [id number] Nov, [facility] [address] [id number] [address] [place] [address], [place] [id number] Nov, [facility] [address] [id number] [address] [place] [address], [place] [id number] Nov, [facility] [address] [id number] [address] [place] [address], [place] [id number] 05 Nov, 2012 [facility] [address] [id number] [address] [place] [id number] Nov, [facility] [address] [id number] [address] [place] [address], [place] [id number] October, [facility] [address] [id number] [address] [place] [address], [place] [id number] October, [facility] [address] [id number] [address] [place] [address], [place] [id number] Sep, [facility] [address] [id number] [address] [place] [address], [place] [id number] Sep, [facility] [address] [id number] [address] [place] [address], [place] [id number] Sep, [facility] [address] [id number] [address] [place] [address], [place] [id number] Sep, [facility] [address] [id number] [address] [place] [address], [place] [id number] Sep, [facility] [address] [id number] [address] [place] [address], [place] [id number] Aug, [facility] [address] [id number] [address] [place] [address], [place] [id number] Aug, [facility] [address] [id number] [address] [place] [address], [place] [id number] Jul, [facility] [address] [id number] [address] [place] [id number] Jul, [facility] [address] [id number] [address] [place] [id number] Jun, [facility] [address] [id number] [address] [place] [address], [place] [id number] Jun, [facility] [address] [id number] [address] [place] [address], [place] [id number] May, [facility] [address] [id number] [address] [place] [address], [place] [id number] May, [facility] [address] [id number] [address] [place] [address], [place] [id number] May, [facility] [address] [id number] [address] [place] [address], [place] [id number] May, [facility] [address] [id number] [address] [place] [address], [place] [id number] Apr, [facility] [address] [id number] [address] [place] [address], [place] [id number] Apr, [facility] [address] [id number] [address] [place] [address], [place] [id number] Apr, [facility] [address] [id number] [address] [place] [address], [place] [id number] Apr, [facility] [address] [id number] [address] [place] [address], [place] [id number] Apr, [facility] [address] [id number] [address] [place] [address], [place] [id number] Apr, [facility] [address] [id number] [address] [place] [address], [place] [id number] 14 Apr, 2012 [facility] [address] [id number] [address] [place] [address], [place] [id number] Apr, [facility] [address] [id number] [address] [place] [address], [place] [id number] Apr, [facility] [address] [id number] [address] [place] [address], [place] [id number] 15 Mar, 2012 [facility] [address] [id number] [address] [place] [address], [place] [id number] 15 Mar, 2012 [facility] [address] [id number] [address] [place] [address], [place] [id number] 05 Feb, 2012 [facility] [address] [id number] [address] [place] [address], [place] [id number] 16 Jan, 2012 [facility] [address] [id number] [address] [place] [address] [address] Jan, [facility] [address] [id number] [address] [place] [address], [place] [id number] Dec, [facility] [address] [id number] [address] [place] [address], [place] [id number] Nov, [facility] [address] [id number] [address] [place] [address], [place] [id number] Nov, [facility] [address] [id number] [address] [place] [address], [place] [id number] October, [facility] [address] [id number] [address] [place] [address], [place] [id number] October, [facility] [address] [id number] [address] [place] [address], [place] [id number] Sep, [facility] [address] [id number] [address] [place] [address], [place] [id number] Sep, [facility] [address] [id number] [address] [place] [address], [place] [id number] May, [facility] [address] [id number] [address] [place] [address], [place] [id number] Apr, [facility] [address] [id number] [address] [place] [address], [place] [id number] Apr, [facility] [address] [id number] [address] [place] [address], [place] [id number] Apr, [facility] [address] [id number] [address] [place] [address], [place] [id number] 15 Apr, 2011 [facility] [address] [id number] [address] [place] [address], [place] [id number] Apr, [facility] [address] [id number] [address] [place] [address], [place] [id number] Apr, [facility] [address] [id number] [address] [place] [address], [place] [id number] Apr, [facility] [address] [id number] [address] [place] [id number] Apr, [facility] [address] [id number] [address] [place] [id number] Mar, [facility] [address] [facility] [id number] [address] [place] [id number] Mar, [facility] [address] [facility] [id number] [address] [place] [id number] Mar, [facility] [address] [facility] [id number] [address] [place] [id number] Mar, [facility] [address] [facility] [id number] [address] [place] [id number] Mar, [facility] [address] [facility] [id number] [address] [place] [id number] Mar, IMMUNIZATIONS No Known Immunizations SOCIAL HISTORY [...] tubal ligation Hospitalization History Mental floor at [facility]
--- OUTSIDE RECORDS SUMMARY | 2019-12-24 20:07 | XMS REPORT ---
Author Author Trey ANDRADE [facility] Address [address] [place] [address] Care Team Providers Care Youth Care Worker Name Role Phone SURESH ANDRADE Unavailable PROBLEMS Type Condition ICD9-CM Code LYK40-EW Code Onset Dates Condition S tatus SNOMED Code Problem Unspecified epilepsy without mention of intractable ep ilepsy G40.909 Active 18109778 Problem Hypertension I10 Active 8213114 3 Problem Other chronic pain G89.29 Active 1 92231760 Problem Rheumatoid arthritis M06.9 Active 02249222 Problem Hyperlipidemia, unspecified E78.5 Ac tive 18255360 Problem Depressive disorder F32.9 Active 74693249 Problem Esophageal reflux K21.9 Active 23 8540295 Problem Carpal tunnel syndrome of left wrist G56.02 Active 330326670502308 Problem Presbyopia H52.4 Active 95302509 Problem Cough R05 Active 75796931 Problem Nondependent 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 Ac tive 989182683 Problem Unspecified open-angle glaucoma, stage unspecified H40.10X0 Feb, Active 29475698 Problem Anxiety disorder, unspecified F41.9 Active 745230881 Problem Insomnia G47.00 Active 862373906 Problem Neuropathy G62.9 Active 349666705 Problem Thyroid nodule E04.1 Active 45101 5005 Problem Multinodular goiter E04.2 Active 549388813 Problem Chronic tension-type headache, intractable G44.221 Active 360321639 Problem Acquired hypothyroidism E03.9 Active 840524612 Problem Goiter E04.9 Active 9140382 Problem Chronic obstructive pulmonary disease, unspecified COPD ty pe J44.9 Active 35543480 Problem Reactive airway disease with out complication, unspecified asthma severity, unspecified whether persistent J45.909 Active 789201477806 Problem BMI 40.0-44.9, adult Z68.41 Active 215528480 Problem Essential hypertension I10 Active 54352313 Problem Right-sided low back pain without sciatica M54.5 Active 009758000 Problem Tension headache G44.209 Active 398 915006 Problem Depression F32.9 Active 17226690 Problem Arthralgia M25.50 Active 56116453 Problem Urge incontinence of urine N39.41 Act chen 82543952 Problem Abnormal laboratory test R89.9 Activ e 691507799 Problem COPD with exacerbation J44.1 Active 440073452 Problem Seasonal allergic rhinitis due to pollen J30.1 Active 54858194 ALLERGIES No Information ENCOUNTERS Encounter Location Date Diagnosis [facility] [address] [place] [id number] [address] [place] [address] October, [facility] [address] [address] October, Thyroid nodule E04.1 and Mul tinodular goiter E04.2 [facility] [id number] [place] [id number] October, [facility] [address] [address] October, Thyroid nodule E04.1 and Mul tinodular goiter E04.2 [facility] [address] [address] Sep, [facility] [address] [address] Sep, Thyroid nodule E04.1 [facility] [id number] [place] [address] Sep, Counseled by nurse Z71.9 and Thyroid nodule E04.1 [facility] [address] [address] Sep, Acquired hypothyroidism E03. 9 ; Tension headache G44.209 ; Essential hypertension I10 ; Multinodular goiter E04.2 and BMI 40.0-44.9, adult Z68.41 [facility] [address] [address] Aug, Pelvic pain R10.2 ; Other sp ecified bacterial agents as the cause of diseases classified elsewhere B96.89 and Acute vaginitis N76.0 [place] [address] [facility] [id number] [address] [place] [address] Apr, Bronchitis J40 [place] [address] [facility] [id number] [address] [place] [address] Apr, Acute gastritis without hemo rrhage, unspecified gastritis type K29.00 [place] [address] [facility] [id number] [address] [place] [address] Mar, [place] [address] [facility] [id number] [place] [address] Feb, [place] [address] [facility] [id number] [address] [place] [address] Feb, Mass of right side of neck R 22.1 and Multinodular goiter E04.2 [facility] [place] [address] [facility] [id number] [address] [place] [address] Jan, Bronchitis J40 [place] [address] [facility] [id number] [address] [place] [address] October, Acquired hypothyroidism E03. 9 [place] [address] [facility] [id number] [address] [place] [address] October, Acute gastritis without hemo rrhage, unspecified gastritis type K29.00 ; Epigastric pain R10.13 ; Essential hypertension I10 ; Screening for colon cancer Z12.11 and BMI 40.0-44.9, adult Z68.41 [place] [address] [facility] [id number] [address] [place] [address] October, [facility] [address] [facility] [id number] [address] [place] [address] October, Chest pain R07.9 and Morbid obesity E66.01 [facility] [place] [address] [place] [id number] [address] [place] [address] Sep, Generalized abdominal pain R 10.84 ; Morbid obesity E66.01 ; Non-intractable vomiting with nausea, unspecified vomiting type R11.2 and Seasonal allergic rhinitis due to pollen J30.1 [facility] [address] [facility] [id number] [address] [place] [address] 28 Jul, 2018 COPD with exacerbation J44.1 ; Viral upper respiratory tract infection J06.9 and Morbid obesity E66.01 [facility] [address] [id number] [address] [place] [address] Jun, Viral upper respiratory trac t infection J06.9 [facility] [id number] [place] [address] Apr, Abnormal laboratory test R89 .9 [place] [address] [place] [id number] [place] [address] Apr, Abnormal laboratory test R89 .9 [place] [address] [place] [id number] [place] [phone] Apr, Abnormal laboratory test R89 .9 [place] [address] [place] [id number] [place] [address] Apr, [facility] [address] [place] [id number] [address] [place] [address] Apr, [place] [address] [address] Apr, Nonintractable episodic head ache, unspecified headache type R51 ; Urge incontinence of urine N39.41 ; BMI 40.0-44.9, adult Z68.41 ; Myalgia M79.10 and Acute cystitis without hematuria N30.00 [facility] [address] [place] [place] [id number] [address] [place] [address] Mar, Nasal congestion R09.81 ; Lo w back pain M54.5 ; Reactive airway disease without complication, unspecified asthma severity, unspecified whether persistent J45.909 ; Other chronic pain G89.29 ; Acute cystitis with hematuria N30.01 and BMI 40.0-44.9, adult Z68.41 [facility] [address] [address] Mar, Acute cystitis with hematuri a N30.01 [facility] [address] [address] Mar, BMI 40.0-44.9, adult Z68.41 ; Acute cystitis with hematuria N30.01 ; Acute bilateral low back pain without sciatica M54.5 and Nausea R11.0 [place] [address] [address] Mar, Hypertension I10 ; Acquired hypothyroidism E03.9 ; Esophageal reflux K21.9 ; Chronic obstructive pulmonary disease, unspecified COPD type J44.9 and BMI 40.0-44.9, adult Z68.[address] [address] Mar, Hypertension I10 [place] [address] [address] Nov, Hyperlipidemia, unspecified E78.[address] [address] October, Chest pain, unspecified type R07.9 and Acquired hypothyroidism E03.[address] [address] October, Chest pain, unspecified type R07.9 ; Family history of coronary artery disease Z82.49 ; Carpal tunnel syndrome of left wrist G56.02 ; Hypertension I10 ; Esophageal reflux K21.9 ; Arthralgia M25.50 ; Acquired hypothyroidism E03.9 ; Cough R05 ; Nausea R11.0 ; Weight gain R63.5 and BMI 45.0-49.9, adult Z68.[address] [address] Jun, Acquired hypothyroidism E03. 9 and Cough R05 [place] [address] [address] May, [place] [address] [address] Feb, Tarsal tunnel syndrome of timi th lower extremities G57.53 and Neuropathy G62.9 [place] [address] [address] Dec, Pleuritis R09.1 [place] [address] [address] Nov, [place] [address] [address] October, Arthralgia, unspecified join t M25.50 and Allergy, initial encounter T78.40XA [place] [address] [address] October, [place] [address] [address] October, Acute recurrent maxillary si nusitis J01.01 and Arthralgia M25.50 [place] [address] [address] Sep, Pharyngitis due to other org anism J02.8 [place] [address] [place] [id number] [place] [address] Aug, Acute nasopharyngitis J00 [place] [address] [address] Aug, Multinodular goiter E04.2 [place] [address] [place] [id number] [place] [address] Aug, Thyroid nodule E04.1 [place] [address] [address] Jul, Tarsal tunnel syndrome of timi th lower extremities G57.53 [place] [address] [address] Jun, Pneumonia due to infectious organism, unspecified laterality, unspecified part of lung J18.9 [place] [address] [address] Jun, Bronchospasm with bronchitis , acute J20.9 [place] [address] [address] May, Acute non-recurrent frontal sinusitis J01.[address] [address] May, Flat foot [pes planus] (acqu ired), left foot M21.42 ; Flat foot [pes planus] (acquired), right foot M21.41 and Neuropathy G62.[address] [address] Apr, Chronic tension-type headach e, intractable G44.221 ; Right lower quadrant abdominal pain R10.31 ; Cervicalgia M54.2 ; Acute gastritis without hemorrhage, unspecified gastritis type K29.00 and Hypertension I10 [address] [address] Mar, Depression F32.9 and Anxiety disorder, unspecified F41.9 [place] [address] [address] Feb, Depressive disorder F32.9 an d Anxiety disorder, unspecified F41.[address] [address] Jan, Dysuria R30.0 ; Lower abdomi nal pain R10.30 ; Acute bilateral low back pain without sciatica M54.5 ; Nausea and vomiting, unspecified intactability, vomiting of unspecified type R11.2 ; Pain in right foot M79.671 and Pain of left foot M79.672 [facility] [address] [facility] [id number] [address] [place] [address] Dec, Urinary tract infection, sit e not specified N39.0 [facility] [address] [id number] [address] [place] [address] Dec, [facility] [address] [facility] [id number] [address] [place] [address] Nov, [facility] [address] [facility] [id number] [address] [place] [address] Nov, Dysuria R30.0 [facility] [address] [facility] [id number] [address] [place] [address] Nov, Dysuria R30.0 and Acute cyst itis with hematuria N30.01 [facility] [address] [facility] [id number] [address] [place] [address] October, Nausea R11.0 [facility] [address] [facility] [id number] [address] [place] [address] October, Thyroid nodule E04.1 ; Carpa l tunnel syndrome, left upper limb G56.02 ; Carpal tunnel syndrome, right upper limb G56.01 and Constipation, unspecified constipation type K59.00 [facility] [address] [facility] [id number] [address] [place] [address] October, [facility] [address] [facility] [id number] [address] [place] [address] October, Thyroid nodule E04.1 [facility] [address] [facility] [id number] [address] [place] [address] October, Cold thyroid nodule E04.1 [facility] [address] [facility] [id number] [address] [place] [address] October, [facility] [address] [facility] [id number] [address] [place] [address] Sep, Thyroid nodule E04.1 [facility] [address] [place] [id number] [address] [place] [address] Sep, Thyroid nodule E04.1 [place] [address] [place] [id number] [place] [address] Sep, Thyroid nodule E04.1 ; Hyper tension I10 ; Esophageal reflux K21.9 and Hyperlipidemia, unspecified E78.5 [place] [address] [place] [id number] [place] [address] Aug, Other chronic pain G89.29 ; Sinusitis J32.9 and Hypertension I10 [place] [address] [place] [id number] [place] [address] Jul, [place] [address] [address] 15 Jul, 2015 [place] [address] [address] 10 Jul, 2015 Insomnia G47.00 and Arthralg ia M25.50 [place] [address] [address] 10 Jul, 2015 Depressive disorder F32.9 an d Anxiety disorder, unspecified F41.9 [place] [address] [place] [id number] [place] [address] May, Right-sided low back pain wi thout sciatica M54.5 and Depression F32.9 [place] [id number] [place] [address] Apr, Hematuria R31.9 [place] [address] [place] [id number] [address] [place] [address] Mar, Other chronic pain G89.29 [place] [address] [place] [id number] [place] [address] Mar, Other chronic pain G89.29 [place] [address] [place] [id number] [place] [address] Feb, [place] [address] [id number] [address] [place] [address] Feb, Other chronic pain 338.29 ; Dysuria 788.1 ; UTI (urinary tract infection) 599.0 ; Insomnia 780.52 ; Hot flashes 627.2 and Hypertension 401.9 [facility] [address] [facility] [id number] [address] [place] [address] Feb, Dysuria 788.1 [facility] [address] [facility] [id number] [address] [place] [address] Feb, [facility] [address] [facility] [id number] [address] [place] [address] Jan, [facility] [address] [facility] [id number] [address] [place] [address] Jan, [facility] [address] [place] [id number] [address] [place] [address] Jan, Fibromyalgia 729.1 ; Hyperte nsion 401.9 ; Dysthymia 300.4 and Hot flashes 627.2 [facility] [address] [facility] [id number] [address] [place] [address] Dec, [facility] [address] [facility] [id number] [address] [place] [address] Dec, [facility] [address] [facility] [id number] [address] [place] [address] Dec, [facility] [address] [facility] [id number] [address] [place] [address] Nov, Other chronic pain 338.29 [facility] [address] [facility] [id number] [address] [place] [address] October, [facility] [address] [facility] [id number] [address] [place] [address] October, [facility] [address] [facility] [id number] [address] [place] [address] Sep, [facility] [address] [id number] [facility] [place] [address] 13 Sep, 2014 [facility] [address] [id number] [address] [place] [address], [place] [address] Aug, [facility] [address] [id number] [address] [place] [address], [place] [address] Aug, [facility] [address] [id number] [address] [place] [address], [place] [address] Aug, [facility] [address] [id number] [address] [place] [address], [place] [address] Aug, [facility] [address] [id number] [address] [place] [address], [place] [address] Aug, [facility] [address] [id number] [address] [place] [address], [place] [address] Aug, [facility] [address] [id number] [address] [place] [address], [place] [address] Aug, [facility] [address] [id number] [address] [place] [address], [place] [address] Aug, [facility] [address] [id number] [address] [place] [address], [place] [address] Aug, [facility] [address] [id number] [address] [place] [address], [place] [address] Aug, [facility] [address] [id number] [address] [place] [address], [place] [address] Aug, [facility] [address] [id number] [address] [place] [address], [place] [address] Aug, [facility] [address] [id number] [address] [place] [address], [place] [address] Aug, [facility] [address] [id number] [address] [place] [address], [place] [address] Aug, [facility] [address] [id number] [address] [place] [address], [place] [address] Jul, [facility] [address] [id number] [address] [place] [address], [place] [address] Jul, [facility] [address] [id number] [address] [place] [address], [place] [address] Jul, [facility] [address] [id number] [address] [place] [address], [place] [address] Jul, [facility] [address] [id number] [address] [place] [address], [place] [address] Jul, [facility] [address] [id number] [address] [place] [address], [place] [address] Jul, [facility] [address] [id number] [address] [place] [address], [place] [address] Jun, [facility] [address] [id number] [address] [place] [address], [place] [address] Jun, [facility] [address] [id number] [address] [place] [address], [place] [address] Jun, [facility] [address] [id number] [address] [place] [address], [place] [address] Jun, [facility] [address] [id number] [address] [place] [address], [place] [address] May, [facility] [address] [id number] [address] [place] [address], [place] [address] May, [facility] [address] [id number] [address] [place] [address], [place] [address] May, [facility] [address] [id number] [address] [place] [address], [place] [address] May, [facility] [address] [id number] [address] [place] [address], [place] [address] May, [facility] [address] [id number] [address] [place] [address], [place] [address] May, [facility] [address] [id number] [address] [place] [address], [place] [address] May, [facility] [address] [id number] [address] [place] [address], [place] [address] May, [facility] [address] [id number] [address] [place] [address], [place] [address] May, [facility] [address] [id number] [address] [place] [address], [place] [address] May, [facility] [address] [id number] [address] [place] [address], [place] [address] Apr, [facility] [address] [id number] [address] [place] [address], [place] [address] Apr, [facility] [address] [id number] [address] [place] [address], [place] [id number] Apr, [facility] [address] [id number] [address] [place] [address], [place] [address] Apr, [facility] [address] [id number] [address] [place] [address], [place] [address] Apr, [facility] [address] [id number] [address] [place] [address], [place] [address] Apr, [facility] [address] [id number] [address] [place] [address], [place] [address] Apr, [facility] [address] [id number] [address] [place] [address], [place] [address] Apr, [facility] [address] [id number] [address] [place] [address], [place] [address] Apr, [facility] [address] [id number] [address] [place] [address], [place] [address] Mar, [facility] [address] [id number] [address] [place] [address], [place] [address] Mar, [facility] [address] [id number] [address] [place] [address], [place] [address] Mar, [facility] [address] [id number] [address] [place] [address], [place] [address] Mar, [facility] [address] [id number] [address] [place] [address], [place] [address] Mar, [facility] [address] [id number] [address] [place] [address], [place] [address] Mar, [facility] [address] [id number] [address] [place] [address], [place] [id number] Mar, [facility] [address] [id number] [address] [place] [address], [place] [id number] Mar, [facility] [address] [id number] [address] [place] [address], [place] [id number] 30 Feb, 2014 [facility] [address] [id number] [address] [place] [address], [place] [id number] 30 Feb, 2013 [facility] [address] [id number] [address] [place] [address], [place] [id number] 24 Feb, 2013 [facility] [address] [id number] [address] [place] [address], [place] [id number] 24 Feb, 2013 [facility] [address] [id number] [address] [place] [address], [place] [id number] 22 Feb, 2013 [facility] [address] [id number] [address] [place] [address], [place] [id number] 22 Feb, 2013 [facility] [address] [id number] [address] [place] [address], [place] [id number] 10 Feb, 2013 [facility] [address] [id number] [address] [place] [address], [place] [id number] 10 Feb, 2013 [facility] [address] [id number] [address] [place] [address], [place] [id number] 03 Feb, 2013 [facility] [address] [id number] [address] [place] [address], [place] [id number] 03 Feb, 2013 [facility] [address] [id number] [address] [place] [address] [place] [id number] Feb, 2013 [facility] [address] [id number] [facility] [place] [id number] Feb, 2013 [facility] [address] [id number] [address] [place] [address], [place] [id number] Feb, [facility] [address] [id number] [address] [place] [address], [place] [id number] Feb, [facility] [address] [id number] [address] [place] [address], [place] [id number] Jan, [facility] [address] [id number] [address] [place] [address], [place] [id number] Jan, [facility] [address] [id number] [address] [place] [address], [place] [id number] Dec, [facility] [address] [id number] [address] [place] [address], [place] [id number] Dec, [facility] [address] [id number] [address] [place] [address], [place] [id number] Dec, [facility] [address] [id number] [address] [place] [address], [place] [id number] Dec, [facility] [address] [id number] [address] [place] [address], [place] [id number] Dec, [facility] [address] [id number] [address] [place] [address], [place] [address] Dec, [facility] [address] [id number] [address] [place] [address], [place] [address] Dec, [facility] [address] [id number] [address] [place] [address], [place] [address] Dec, [facility] [address] [id number] [address] [place] [address], [place] [address] Dec, [facility] [address] [id number] [address] [place] [address], [place] [address] Dec, [facility] [address] [id number] [facility] [place] [address] 14 Dec, 2013 [facility] [address] [id number] [facility] [place] [address] Dec, 2013 [facility] [address] [id number] [address] [place] [address], [place] [address] Dec, 2013 [facility] [address] [id number] [address] [place] [address], [place] [address] Dec, 2013 [facility] [address] [id number] [address] [place] [address], [place] [address] Dec, 2013 [facility] [address] [id number] [address] [place] [address], [place] [address] Dec, 2013 [facility] [address] [id number] [address] [place] [address], [place] [address] Dec, 2013 [facility] [address] [id number] [address] [place] [address], [place] [address] Dec, [facility] [address] [id number] [address] [place] [address], [place] [address] Dec, [facility] [address] [id number] [address] [place] [address], [place] [address] Nov, [facility] [address] [id number] [address] [place] [address], [place] [address] Nov, [facility] [address] [id number] [address] [place] [address], [place] [address] Nov, [facility] [address] [id number] [address] [place] [address], [place] [address] Nov, [facility] [address] [id number] [address] [place] [address], [place] [address] Nov, [facility] [address] [id number] [address] [place] [address], [place] [address] Nov, [facility] [address] [id number] [address] [place] [address], [place] [address] Nov, [facility] [address] [id number] [facility] [place] [address] Nov, [facility] [address] [id number] [facility] [place] [address] Nov, [facility] [address] [id number] [address] [place] [address], [place] [address] October, [facility] [address] [id number] [address] [place] [address], [place] [address] October, [facility] [address] [id number] [address] [place] [address], [place] [address] October, [facility] [address] [id number] [address] [place] [address], [place] [address] October, [facility] [address] [id number] [address] [place] [address], [place] [address] October, [facility] [address] [id number] [address] [place] [address], [place] [address] October, [facility] [address] [id number] [address] [place] [address], [place] [address] October, [facility] [address] [id number] [address] [place] [address], [place] [address] October, [facility] [address] [id number] [address] [place] [address], [place] [address] Sep, [facility] [address] [id number] [address] [place] [address], [place] [address] Sep, [facility] [address] [id number] [address] [place] [address], [place] [address] Sep, [facility] [address] [id number] [address] [place] [address], [place] [address] Sep, [facility] [address] [id number] [address] [place] [address], [place] [address] Sep, [facility] [address] [id number] [address] [place] [address], [place] [address] Sep, [facility] [address] [id number] [address] [place] [address], [place] [address] Sep, [facility] [address] [id number] [address] [place] [address], [place] [address] Aug, [facility] [address] [id number] [address] [place] [address], [place] [address] Aug, [facility] [address] [id number] [address] [place] [address], [place] [address] Aug, [facility] [address] [id number] [address] [place] [address], [place] [address] Aug, [facility] [address] [id number] [address] [place] [address], [place] [address] Aug, [facility] [address] [id number] [address] [place] [address], [place] [address] Aug, [facility] [address] [id number] [address] [place] [address], [place] [address] Jul, [facility] [address] [id number] [address] [place] [address], [place] [address] Jul, [facility] [address] [id number] [address] [place] [address], [place] [address] Jul, [facility] [address] [id number] [address] [place] [address], [place] [address] Jul, [facility] [address] [id number] [address] [place] [address], [place] [address] Jul, [facility] [address] [id number] [address] [place] [address], [place] [address] Jul, [facility] [address] [id number] [address] [place] [address], [place] [address] Jun, [facility] [address] [id number] [address] [place] [address], [place] [address] Jun, [facility] [address] [id number] [address] [place] [address], [place] [address] Jun, [facility] [address] [id number] [address] [place] [address], [place] [address] Jun, [facility] [address] [id number] [address] [place] [address], [place] [address] Jun, [facility] [address] [id number] [address] [place] [address], [place] [address] Jun, [facility] [address] [id number] [address] [place] [address], [place] [address] Jun, [facility] [address] [id number] [address] [place] [address], [place] [address] Jun, [facility] [address] [id number] [address] [place] [address], [place] [address] Jun, [facility] [address] [id number] [address] [place] [address], [place] [address] Jun, [facility] [address] [id number] [address] [place] [address], [place] [address] Jun, [facility] [address] [id number] [address] [place] [address], [place] [address] Jun, [facility] [address] [id number] [address] [place] [address], [place] [address] Jun, [facility] [address] [id number] [address] [place] [address], [place] [address] May, [facility] [address] [id number] [address] [place] [address], [place] [address] May, [facility] [address] [id number] [address] [place] [address], [place] [address] May, [facility] [address] [id number] [address] [place] [address], [place] [address] May, [facility] [address] [id number] [address] [place] [address], [place] [address] 26 May, 2013 [facility] [address] [id number] [address] [place] [address], [place] [address] 14 May, 2013 [facility] [address] [id number] [address] [place] [address], [place] [address] 14 May, 2013 [facility] [address] [id number] [address] [place] [address], [place] [address] 12 May, 2013 [facility] [address] [id number] [address] [place] [address], [place] [address] 12 May, 2013 [facility] [address] [id number] [address] [place] [address], [place] [address] May, [facility] [address] [id number] [address] [place] [address], [place] [address] May, [facility] [address] [id number] [address] [place] [address], [place] [address] 10 May, 2013 [facility] [address] [id number] [address] [place] [address], [place] [address] 10 May, 2013 [facility] [address] [id number] [address] [place] [address], [place] [address] 09 May, 2013 [facility] [address] [id number] [address] [place] [address], [place] [address] 09 May, 2013 [facility] [address] [id number] [address] [place] [address], [place] [address] 08 May, 2013 [facility] [address] [id number] [address] [place] [address], [place] [address] 07 May, 2013 [facility] [address] [id number] [address] [place] [address], [place] [address] 06 May, 2013 [facility] [address] [id number] [address] [place] [address], [place] [address] 06 May, 2013 [facility] [address] [id number] [address] [place] [address], [place] [address] 06 May, 2013 [facility] [address] [id number] [address] [place] [address], [place] [address] May, [facility] [address] [id number] [address] [place] [address], [place] [address] Apr, [facility] [address] [id number] [address] [place] [address], [place] [address] Apr, [facility] [address] [id number] [address] [place] [address], [place] [address] Apr, [facility] [address] [id number] [address] [place] [address], [place] [address] Apr, [facility] [address] [id number] [address] [place] [address], [place] [address] Mar, [facility] [address] [id number] [address] [place] [address], [place] [address] 23 Feb, 2013 [facility] [address] [id number] [address] [place] [address], [place] [address] 16 Feb, 2013 [facility] [address] [id number] [address] [place] [address], [place] [address] 13 Feb, 2013 [facility] [address] [id number] [address] [place] [address], [place] [address] 10 Feb, 2013 [facility] [address] [id number] [address] [place] [address], [place] [address] Feb, [facility] [address] [id number] [address] [place] [address], [place] [address] Feb, [facility] [address] [id number] [address] [place] [address], [place] [address] Jan, [facility] [address] [id number] [address] [place] [address], [place] [address] Jan, [facility] [address] [id number] [address] [place] [address], [place] [address] Jan, [facility] [address] [id number] [address] [place] [address], [place] [address] 17 Dec, 2012 [facility] [address] [id number] [facility] [place] [address] 17 Dec, 2012 [facility] [address] [id number] [address] [place] [address], [place] [address] 17 Dec, 2012 [facility] [address] [id number] [address] [place] [address], [place] [address] 15 Dec, 2012 [facility] [address] [id number] [address] [place] [address], [place] [address] Dec, [facility] [address] [id number] [address] [place] [address], [place] [address] Nov, [facility] [address] [id number] [address] [place] [address], [place] [address] Nov, [facility] [address] [id number] [address] [place] [address], [place] [address] Nov, [facility] [address] [id number] [address] [place] [address], [place] [address] Nov, [facility] [address] [id number] [address] [place] [address], [place] [address] Nov, [facility] [address] [id number] [address] [place] [address], [place] [address] 08 Nov, 2012 [facility] [address] [id number] [address] [place] [address], [place] [address] 07 Nov, 2012 [facility] [address] [id number] [address] [place] [address], [place] [address] 06 Nov, 2012 [facility] [address] [id number] [address] [place] [address], [place] [address] 05 Nov, 2012 [facility] [address] [id number] [address] [place] [address], [place] [address] 04 Nov, 2012 [facility] [address] [id number] [address] [place] [address], [place] [address] October, [facility] [address] [id number] [address] [place] [address], [place] [address] October, [facility] [address] [id number] [address] [place] [address], [place] [address] Sep, [facility] [address] [id number] [address] [place] [address], [place] [address] Sep, [facility] [address] [id number] [address] [place] [address], [place] [address] Sep, [facility] [address] [id number] [address] [place] [address], [place] [address] Sep, [facility] [address] [id number] [address] [place] [address], [place] [address] Sep, [facility] [address] [id number] [address] [place] [address], [place] [address] Aug, [facility] [address] [id number] [address] [place] [address], [place] [address] Aug, [facility] [address] [id number] [address] [place] [address], [place] [address] Jul, [facility] [address] [id number] [address] [place] [address], [place] [address] Jul, [facility] [address] [id number] [address] [place] [address], [place] [address] Jun, [facility] [address] [id number] [address] [place] [address], [place] [address] Jun, [facility] [address] [id number] [address] [place] [address], [place] [address] May, [facility] [address] [id number] [address] [place] [address], [place] [address] May, [facility] [address] [id number] [address] [place] [address], [place] [address] May, [facility] [address] [id number] [address] [place] [address], [place] [address] May, [facility] [address] [id number] [address] [place] [address], [place] [address] Apr, [facility] [address] [id number] [address] [place] [address], [place] [address] Apr, [facility] [address] [id number] [address] [place] [address], [place] [address] Apr, [facility] [address] [id number] [address] [place] [address], [place] [address] Apr, [facility] [address] [id number] [address] [place] [address], [place] [address] Apr, [facility] [address] [id number] [address] [place] [address], [place] [address] Apr, [facility] [address] [id number] [address] [place] [address], [place] [address] Apr, [facility] [address] [id number] [address] [place] [address] Apr, [facility] [address] [id number] [address] [place] [address], [place] [address] Apr, [facility] [address] [id number] [address] [place] [id number] Mar, [facility] [address] [id number] [address] [place] [id number] Mar, [facility] [address] [id number] [address] [place] [id number] Feb, [facility] [address] [id number] [address] [place] [address], [place] [address] Jan, [facility] [address] [id number] [address] [place] [id number] Jan, [facility] [address] [id number] [address] [place] [id number] Dec, [facility] [address] [id number] [address] [place] [id number] Nov, [facility] [address] [id number] [address] [place] [address], [place] [address] Nov, [facility] [address] [id number] [address] [place] [address], [place] [address] October, [facility] [address] [id number] [address] [place] [address], [place] [address] October, [facility] [address] [id number] [address] [place] [address], [place] [address] Sep, [facility] [address] [id number] [address] [place] [address], [place] [address] Sep, [facility] [address] [id number] [address] [place] [address], [place] [address] May, [facility] [address] [id number] [address] [place] [id number] Apr, [facility] [address] [id number] [address] [place] [address], [place] [address] Apr, [facility] [address] [id number] [address] [place] [address], [place] [address] Apr, [facility] [address] [id number] [address] [place] [id number] Apr, [facility] [address] [id number] [address] [place] [address], [place] [address] Apr, [facility] [address] [id number] [address] [place] [id number] Apr, [facility] [address] [id number] [address] [place] [address], [place] [address] Apr, [facility] [address] [id number] [address] [place] [address], [place] [address] Apr, [facility] [address] [id number] [address] [place] [address], [place] [address] Mar, [facility] [address] [facility] [id number] [address] [place] [id number] Mar, [facility] [address] [facility] [id number] [address] [place] [id number] Mar, [facility] [address] [facility] [id number] [address] [place] [id number] Mar, [facility] [address] [facility] [id number] [address] [place] [id number] Mar, [facility] [address] [facility] [id number] [address] [place] [id number] Mar, IMMUNIZATIONS No Known Immunizations SOCIAL HISTORY [...] tubal ligation Hospitalization History Mental floor at [facility]
--- OUTSIDE RECORDS SUMMARY | 2019-12-24 20:07 | XMS REPORT ---
Author Author Trey Christianson Organization [facility] Address [address] [place] [address] Care Team Providers Care Bull Rider Name Role Phone AIRAM Christianson Unavailable PROBLEMS Type Condition ICD9-CM Code WKV68-VP Code Onset Dates Condition S tatus SNOMED Code Problem Unspecified epilepsy without mention of intractable ep ilepsy G40.909 Active 86927791 Problem Hypertension I10 Active 4052313 3 Problem Other chronic pain G89.29 Active 1 93262561 Problem Rheumatoid arthritis M06.9 Active 75373371 Problem Hyperlipidemia, unspecified E78.5 Ac tive 82815176 Problem Depressive disorder F32.9 Active 84605736 Problem Esophageal reflux K21.9 Active 23 9035363 Problem Carpal tunnel syndrome of left wrist G56.02 Active 604115240100644 Problem Presbyopia H52.4 Active 24697387 Problem Cough R05 Active 96138541 Problem Nondependent 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 Ac tive 168788086 Problem Unspecified open-angle glaucoma, stage unspecified H40.10X0 Feb, Active 21361073 Problem Anxiety disorder, unspecified F41.9 Active 136933645 Problem Insomnia G47.00 Active 785195703 Problem Neuropathy G62.9 Active 054544644 Problem Thyroid nodule E04.1 Active 39780 5005 Problem Multinodular goiter E04.2 Active 607056769 Problem Chronic tension-type headache, intractable G44.221 Active 569520902 Problem Acquired hypothyroidism E03.9 Active 462019532 Problem Goiter E04.9 Active 6159062 Problem Chronic obstructive pulmonary disease, unspecified COPD ty pe J44.9 Active 36563646 Problem Reactive airway disease with out complication, unspecified asthma severity, unspecified whether persistent J45.909 Active 937775960091 Problem BMI 40.0-44.9, adult Z68.41 Active 551848398 Problem Essential hypertension I10 Active 75806116 Problem Right-sided low back pain without sciatica M54.5 Active 104592020 Problem Tension headache G44.209 Active 398 867136 Problem Depression F32.9 Active 54816430 Problem Arthralgia M25.50 Active 93393790 Problem Urge incontinence of urine N39.41 Act chen 41171923 Problem Abnormal laboratory test R89.9 Activ e 291135277 Problem COPD with exacerbation J44.1 Active 675453916 Problem Seasonal allergic rhinitis due to pollen J30.1 Active 16132761 ALLERGIES No Information ENCOUNTERS Encounter Location Date Diagnosis [facility] [address] [place] [id number] [place] [address] October, [facility] [address] [address] October, Thyroid nodule E04.1 and Mul tinodular goiter E04.2 [facility] [address] [place] [id number] October, [facility] [address] [address] October, Thyroid nodule E04.1 and Mul tinodular goiter E04.2 [facility] [address] [address] Sep, Thyroid nodule E04.1 [facility] [address] [address] Sep, [facility] [address] [address] Sep, Counseled by nurse Z71.9 and Thyroid nodule E04.1 [facility] [address] [address] Sep, Acquired hypothyroidism E03. 9 ; Tension headache G44.209 ; Essential hypertension I10 ; Multinodular goiter E04.2 and BMI 40.0-44.9, adult Z68.41 [facility] [address] [address] Aug, Pelvic pain R10.2 ; Other sp ecified bacterial agents as the cause of diseases classified elsewhere B96.89 and Acute vaginitis N76.0 [place] [address] [address] [facility] [id number] [address] [place] [address] Apr, Bronchitis J40 [place] [address] [address] [facility] [id number] [address] [place] [address] Apr, Acute gastritis without hemo rrhage, unspecified gastritis type K29.00 [place] [address] [address] [facility] [id number] [address] [place] [address] Mar, [place] [address] [address] [facility] [id number] [place] [address] Feb, [place] [address] [address] [facility] [id number] [address] [place] [address] Feb, Mass of right side of neck R 22.1 and Multinodular goiter E04.2 [facility] [place] [address] [address] [facility] [id number] [address] [place] [address] Jan, Bronchitis J40 [place] [address] [address] [facility] [id number] [address] [place] [address] October, Acquired hypothyroidism E03. 9 [place] [address] [address] [facility] [id number] [address] [place] [address] October, Acute gastritis without hemo rrhage, unspecified gastritis type K29.00 ; Epigastric pain R10.13 ; Essential hypertension I10 ; Screening for colon cancer Z12.11 and BMI 40.0-44.9, adult Z68.41 [place] [address] [address] [facility] [id number] [address] [place] [address] October, [facility] [address] [facility] [id number] [address] [place] [address] October, Chest pain R07.9 and Morbid obesity E66.01 [facility] [place] [address] [address] [place] [id number] [place] [address] Sep, Generalized abdominal pain R 10.84 ; Morbid obesity E66.01 ; Non-intractable vomiting with nausea, unspecified vomiting type R11.2 and Seasonal allergic rhinitis due to pollen J30.1 [facility] [address] [facility] [id number] [address] [place] [address] 28 Jul, 2018 COPD with exacerbation J44.1 ; Viral upper respiratory tract infection J06.9 and Morbid obesity E66.01 [facility] [id number] [place] [address] Jun, Viral upper respiratory trac t infection J06.9 [facility] [address] [id number] [place] [address] Apr, Abnormal laboratory test R89 .9 [place] [address] [place] [id number] [place] [address] Apr, Abnormal laboratory test R89 .9 [place] [address] [place] [id number] [place] [address] Apr, Abnormal laboratory test R89 .9 [place] [address] [place] [id number] [place] [address] Apr, [facility] [address] [place] [id number] [place] [address] Apr, [place] [address] [address] Apr, Nonintractable episodic head ache, unspecified headache type R51 ; Urge incontinence of urine N39.41 ; BMI 40.0-44.9, adult Z68.41 ; Myalgia M79.10 and Acute cystitis without hematuria N30.00 [facility] [address] [place] [id number] [address] [place] [address] Mar, Nasal congestion R09.81 ; Lo w back pain M54.5 ; Reactive airway disease without complication, unspecified asthma severity, unspecified whether persistent J45.909 ; Other chronic pain G89.29 ; Acute cystitis with hematuria N30.01 and BMI 40.0-44.9, adult Z68.41 [facility] [address] [address] Mar, Acute cystitis with hematuri a N30.01 [facility] [address] [address] Mar, BMI 40.0-44.9, adult Z68.41 ; Acute cystitis with hematuria N30.01 ; Acute bilateral low back pain without sciatica M54.5 and Nausea R11.0 [place] [address] [address] Mar, Hypertension I10 ; Acquired hypothyroidism E03.9 ; Esophageal reflux K21.9 ; Chronic obstructive pulmonary disease, unspecified COPD type J44.9 and BMI 40.0-44.9, adult Z68.[address] [address] Mar, Hypertension I10 [place] [address] [address] Nov, Hyperlipidemia, unspecified E78.[address] [address] October, Chest pain, unspecified type R07.9 and Acquired hypothyroidism E03.[address] [address] October, Chest pain, unspecified type R07.9 ; Family history of coronary artery disease Z82.49 ; Carpal tunnel syndrome of left wrist G56.02 ; Hypertension I10 ; Esophageal reflux K21.9 ; Arthralgia M25.50 ; Acquired hypothyroidism E03.9 ; Cough R05 ; Nausea R11.0 ; Weight gain R63.5 and BMI 45.0-49.9, adult Z68.[address] [address] Jun, Acquired hypothyroidism E03. 9 and Cough R05 [place] [address] [address] May, [place] [address] [address] Feb, Tarsal tunnel syndrome of timi th lower extremities G57.53 and Neuropathy G62.9 [place] [address] [address] Dec, Pleuritis R09.1 [place] [address] [address] Nov, [place] [address] [address] October, Arthralgia, unspecified join t M25.50 and Allergy, initial encounter T78.40XA [place] [address] [address] October, [place] [address] [address] October, Acute recurrent maxillary si nusitis J01.01 and Arthralgia M25.50 [place] [address] [address] Sep, Pharyngitis due to other org anism J02.8 [place] [address] [address] [place] [id number] [place] [address] Aug, Acute nasopharyngitis J00 [place] [address] [address] Aug, Multinodular goiter E04.2 [place] [address] [address] [place] [id number] [place] [address] Aug, Thyroid nodule E04.1 [place] [address] [address] Jul, Tarsal tunnel syndrome of timi th lower extremities G57.53 [place] [address] [address] Jun, Pneumonia due to infectious organism, unspecified laterality, unspecified part of lung J18.9 [place] [address] [address] Jun, Bronchospasm with bronchitis , acute J20.9 [place] [address] [address] May, Acute non-recurrent frontal sinusitis J01.[address] [address] May, Flat foot [pes planus] (acqu ired), left foot M21.42 ; Flat foot [pes planus] (acquired), right foot M21.41 and Neuropathy G62.[address] [address] Apr, Chronic tension-type headach e, intractable G44.221 ; Right lower quadrant abdominal pain R10.31 ; Cervicalgia M54.2 ; Acute gastritis without hemorrhage, unspecified gastritis type K29.00 and Hypertension I10 [address] [address] Mar, Depression F32.9 and Anxiety disorder, unspecified F41.9 [place] [address] [address] Feb, Depressive disorder F32.9 an d Anxiety disorder, unspecified F41.[address] [address] Jan, Dysuria R30.0 ; Lower abdomi nal pain R10.30 ; Acute bilateral low back pain without sciatica M54.5 ; Nausea and vomiting, unspecified intactability, vomiting of unspecified type R11.2 ; Pain in right foot M79.671 and Pain of left foot M79.672 [facility] [address] [facility] [id number] [address] [place] [address] Dec, Urinary tract infection, sit e not specified N39.0 [facility] [address] [id number] [address] [place] [address] Dec, [facility] [address] [facility] [id number] [address] [place] [address] Nov, [facility] [address] [facility] [id number] [address] [place] [address] Nov, Dysuria R30.0 [facility] [address] [facility] [id number] [address] [place] [address] Nov, Dysuria R30.0 and Acute cyst itis with hematuria N30.01 [facility] [address] [facility] [id number] [address] [place] [address] October, Nausea R11.0 [facility] [address] [facility] [id number] [address] [place] [address] October, Thyroid nodule E04.1 ; Carpa l tunnel syndrome, left upper limb G56.02 ; Carpal tunnel syndrome, right upper limb G56.01 and Constipation, unspecified constipation type K59.00 [facility] [address] [facility] [id number] [address] [place] [address] October, [facility] [address] [facility] [id number] [address] [place] [address] October, Thyroid nodule E04.1 [facility] [address] [facility] [id number] [address] [place] [address] October, Cold thyroid nodule E04.1 [facility] [address] [facility] [id number] [address] [place] [address] October, [facility] [address] [facility] [id number] [address] [place] [address] Sep, Thyroid nodule E04.1 [facility] [address] [place] [id number] [place] [address] Sep, Thyroid nodule E04.1 [place] [id number] [place] [id number] [place] [address] Sep, Thyroid nodule E04.1 ; Hyper tension I10 ; Esophageal reflux K21.9 and Hyperlipidemia, unspecified E78.5 [place] [address] [address] [place] [id number] [place] [address] Aug, Other chronic pain G89.29 ; Sinusitis J32.9 and Hypertension I10 [place] [address] [address] [place] [id number] [place] [address] Jul, [place] [address] [address] 15 Jul, 2015 [place] [address] [address] 10 Jul, 2015 Insomnia G47.00 and Arthralg ia M25.50 [place] [address] [address] 10 Jul, 2015 Depressive disorder F32.9 an d Anxiety disorder, unspecified F41.9 [place] [address] [address] [place] [id number] [place] [address] May, Right-sided low back pain wi thout sciatica M54.5 and Depression F32.9 [place] [id number] [place] [address] Apr, Hematuria R31.9 [place] [address] [place] [id number] [place] [address] Mar, Other chronic pain G89.29 [place] [address] [address] [place] [id number] [place] [address] Mar, Other chronic pain G89.29 [place] [address] [place] [id number] [place] [address] Feb, [place] [address] [id number] [address] [place] [address] Feb, Other chronic pain 338.29 ; Dysuria 788.1 ; UTI (urinary tract infection) 599.0 ; Insomnia 780.52 ; Hot flashes 627.2 and Hypertension 401.9 [facility] [address] [facility] [id number] [address] [place] [address] Feb, Dysuria 788.1 [facility] [address] [facility] [id number] [address] [place] [address] Feb, [facility] [address] [facility] [id number] [address] [place] [address] Jan, [facility] [address] [facility] [id number] [address] [place] [address] Jan, [facility] [address] [place] [id number] [place] [address] Jan, Fibromyalgia 729.1 ; Hyperte nsion 401.9 ; Dysthymia 300.4 and Hot flashes 627.2 [facility] [address] [facility] [id number] [address] [place] [address] Dec, [facility] [address] [facility] [id number] [address] [place] [address] Dec, [facility] [address] [facility] [id number] [address] [place] [address] Dec, [facility] [address] [facility] [id number] [address] [place] [address] Nov, Other chronic pain 338.29 [facility] [address] [facility] [id number] [address] [place] [address] October, [facility] [address] [facility] [id number] [address] [place] [address] October, [facility] [address] [facility] [id number] [address] [place] [address] Sep, [facility] [address] [id number] [facility] [place] [address] 13 Sep, 2014 [facility] [address] [id number] [address] [place] [address], [place] [address] Aug, [facility] [address] [id number] [address] [place] [address], [place] [address] Aug, [facility] [address] [id number] [address] [place] [address], [place] [address] Aug, [facility] [address] [id number] [address] [place] [address], [place] [address] Aug, [facility] [address] [id number] [address] [place] [address], [place] [address] Aug, [facility] [address] [id number] [address] [place] [address], [place] [address] Aug, [facility] [address] [id number] [address] [place] [address], [place] [address] Aug, [facility] [address] [id number] [address] [place] [address], [place] [address] Aug, [facility] [address] [id number] [address] [place] [address], [place] [address] Aug, [facility] [address] [id number] [address] [place] [address], [place] [address] Aug, [facility] [address] [id number] [address] [place] [address], [place] [address] Aug, [facility] [address] [id number] [address] [place] [address], [place] [address] Aug, [facility] [address] [id number] [address] [place] [address], [place] [address] Aug, [facility] [address] [id number] [address] [place] [address], [place] [address] Aug, [facility] [address] [id number] [address] [place] [address], [place] [address] Jul, [facility] [address] [id number] [address] [place] [address], [place] [address] Jul, [facility] [address] [id number] [address] [place] [address], [place] [address] Jul, [facility] [address] [id number] [address] [place] [address], [place] [address] Jul, [facility] [address] [id number] [address] [place] [address], [place] [address] Jul, [facility] [address] [id number] [address] [place] [address], [place] [address] Jul, [facility] [address] [id number] [address] [place] [address], [place] [address] Jun, [facility] [address] [id number] [address] [place] [address], [place] [address] Jun, [facility] [address] [id number] [address] [place] [address], [place] [address] Jun, [facility] [address] [id number] [address] [place] [address], [place] [address] Jun, [facility] [address] [id number] [address] [place] [address], [place] [address] May, [facility] [address] [id number] [address] [place] [address], [place] [address] May, [facility] [address] [id number] [address] [place] [address], [place] [address] May, [facility] [address] [id number] [address] [place] [address], [place] [address] May, [facility] [address] [id number] [address] [place] [address], [place] [address] May, [facility] [address] [id number] [address] [place] [address], [place] [address] May, [facility] [address] [id number] [address] [place] [address], [place] [address] May, [facility] [address] [id number] [address] [place] [address], [place] [address] May, [facility] [address] [id number] [address] [place] [address], [place] [address] May, [facility] [address] [id number] [address] [place] [address], [place] [address] May, [facility] [address] [id number] [address] [place] [address], [place] [address] Apr, [facility] [address] [id number] [address] [place] [address], [place] [address] Apr, [facility] [address] [id number] [address] [place] [address], [place] [address] Apr, [facility] [address] [id number] [address] [place] [address], [place] [address] Apr, [facility] [address] [id number] [address] [place] [address], [place] [address] Apr, [facility] [address] [id number] [address] [place] [address], [place] [address] Apr, [facility] [address] [id number] [address] [place] [address], [place] [address] Apr, [facility] [address] [id number] [address] [place] [address], [place] [address] Apr, [facility] [address] [id number] [address] [place] [address], [place] [address] Apr, [facility] [address] [id number] [address] [place] [address], [place] [address] Mar, [facility] [address] [id number] [address] [place] [address], [place] [address] Mar, [facility] [address] [id number] [address] [place] [address], [place] [address] Mar, [facility] [address] [id number] [address] [place] [address], [place] [address] Mar, [facility] [address] [id number] [address] [place] [address], [place] [address] Mar, [facility] [address] [id number] [address] [place] [address], [place] [address] Mar, [facility] [address] [id number] [address] [place] [address], [place] [address] Mar, [facility] [address] [id number] [address] [place] [address], [place] [address] Mar, [facility] [address] [id number] [address] [place] [address], [place] [address] 30 Feb, 2014 [facility] [address] [id number] [address] [place] [address], [place] [address] 30 Feb, 2013 [facility] [address] [id number] [address] [place] [address], [place] [address] 24 Feb, 2013 [facility] [address] [id number] [address] [place] [address], [place] [address] 24 Feb, 2013 [facility] [address] [id number] [address] [place] [address], [place] [address] 22 Feb, 2013 [facility] [address] [id number] [address] [place] [address], [place] [address] 22 Feb, 2013 [facility] [address] [id number] [address] [place] [address], [place] [address] 10 Feb, 2013 [facility] [address] [id number] [address] [place] [address], [place] [address] 10 Feb, 2013 [facility] [address] [id number] [address] [place] [address], [place] [address] 03 Feb, 2013 [facility] [address] [id number] [address] [place] [address], [place] [address] 03 Feb, 2013 [facility] [address] [id number] [address] [place] [address] [place] [address] Feb, 2013 [facility] [address] [id number] [facility] [place] [address] Feb, 2013 [facility] [address] [id number] [address] [place] [address], [place] [address] Feb, [facility] [address] [id number] [address] [place] [address], [place] [address] Feb, [facility] [address] [id number] [address] [place] [address], [place] [address] Jan, [facility] [address] [id number] [address] [place] [address], [place] [address] Jan, [facility] [address] [id number] [address] [place] [address], [place] [address] Dec, [facility] [address] [id number] [address] [place] [address], [place] [address] Dec, [facility] [address] [id number] [address] [place] [address], [place] [address] Dec, [facility] [address] [id number] [address] [place] [address], [place] [address] Dec, [facility] [address] [id number] [address] [place] [address], [place] [id number] Dec, [facility] [address] [id number] [address] [place] [address], [place] [address] Dec, [facility] [address] [id number] [address] [place] [address], [place] [address] Dec, [facility] [address] [id number] [address] [place] [address], [place] [address] Dec, [facility] [address] [id number] [address] [place] [address], [place] [address] Dec, [facility] [address] [id number] [address] [place] [address], [place] [address] Dec, [facility] [address] [id number] [facility] [place] [address] 14 Dec, 2013 [facility] [address] [id number] [facility] [place] [address] Dec, 2013 [facility] [address] [id number] [address] [place] [address], [place] [address] Dec, 2013 [facility] [address] [id number] [address] [place] [address], [place] [address] Dec, 2013 [facility] [address] [id number] [address] [place] [address], [place] [address] Dec, 2013 [facility] [address] [id number] [address] [place] [address], [place] [address] Dec, 2013 [facility] [address] [id number] [address] [place] [address], [place] [address] Dec, 2013 [facility] [address] [id number] [address] [place] [address], [place] [address] Dec, [facility] [address] [id number] [address] [place] [address], [place] [address] Dec, [facility] [address] [id number] [address] [place] [address], [place] [address] Nov, [facility] [address] [id number] [address] [place] [address], [place] [address] Nov, [facility] [address] [id number] [address] [place] [address], [place] [address] Nov, [facility] [address] [id number] [address] [place] [address], [place] [address] Nov, [facility] [address] [id number] [address] [place] [address], [place] [address] Nov, [facility] [address] [id number] [address] [place] [address], [place] [address] Nov, [facility] [address] [id number] [address] [place] [address], [place] [address] Nov, [facility] [address] [id number] [facility] [place] [address] Nov, [facility] [address] [id number] [facility] [place] [address] Nov, [facility] [address] [id number] [address] [place] [address], [place] [address] October, [facility] [address] [id number] [address] [place] [address], [place] [address] October, [facility] [address] [id number] [address] [place] [address], [place] [address] October, [facility] [address] [id number] [address] [place] [address], [place] [address] October, [facility] [address] [id number] [address] [place] [address], [place] [address] October, [facility] [address] [id number] [address] [place] [address], [place] [address] October, [facility] [address] [id number] [address] [place] [address], [place] [address] October, [facility] [address] [id number] [address] [place] [address], [place] [address] October, [facility] [address] [id number] [address] [place] [address], [place] [address] Sep, [facility] [address] [id number] [address] [place] [address], [place] [address] Sep, [facility] [address] [id number] [address] [place] [address], [place] [address] Sep, [facility] [address] [id number] [address] [place] [address], [place] [address] Sep, [facility] [address] [id number] [address] [place] [address], [place] [address] Sep, [facility] [address] [id number] [address] [place] [address], [place] [address] Sep, [facility] [address] [id number] [address] [place] [address], [place] [address] Sep, [facility] [address] [id number] [address] [place] [address], [place] [address] Aug, [facility] [address] [id number] [address] [place] [address], [place] [address] Aug, [facility] [address] [id number] [address] [place] [address], [place] [address] Aug, [facility] [address] [id number] [address] [place] [address], [place] [address] Aug, [facility] [address] [id number] [address] [place] [address], [place] [address] Aug, [facility] [address] [id number] [address] [place] [address], [place] [address] Aug, [facility] [address] [id number] [address] [place] [address], [place] [address] Jul, [facility] [address] [id number] [address] [place] [address], [place] [address] Jul, [facility] [address] [id number] [address] [place] [address], [place] [address] Jul, [facility] [address] [id number] [address] [place] [address], [place] [address] Jul, [facility] [address] [id number] [address] [place] [address], [place] [address] Jul, [facility] [address] [id number] [address] [place] [address], [place] [address] Jul, [facility] [address] [id number] [address] [place] [address], [place] [address] Jun, [facility] [address] [id number] [address] [place] [address], [place] [address] Jun, [facility] [address] [id number] [address] [place] [address], [place] [address] Jun, [facility] [address] [id number] [address] [place] [address], [place] [address] Jun, [facility] [address] [id number] [address] [place] [address], [place] [address] Jun, [facility] [address] [id number] [address] [place] [address], [place] [address] Jun, [facility] [address] [id number] [address] [place] [address], [place] [address] Jun, [facility] [address] [id number] [address] [place] [address], [place] [address] Jun, [facility] [address] [id number] [address] [place] [address], [place] [address] Jun, [facility] [address] [id number] [address] [place] [address], [place] [address] Jun, [facility] [address] [id number] [address] [place] [address], [place] [address] Jun, [facility] [address] [id number] [address] [place] [address], [place] [address] Jun, [facility] [address] [id number] [address] [place] [address], [place] [address] Jun, [facility] [address] [id number] [address] [place] [address], [place] [address] May, [facility] [address] [id number] [address] [place] [address], [place] [address] May, [facility] [address] [id number] [address] [place] [address], [place] [address] May, [facility] [address] [id number] [address] [place] [address], [place] [address] May, [facility] [address] [id number] [address] [place] [address], [place] [address] 26 May, 2013 [facility] [address] [id number] [address] [place] [address], [place] [address] 14 May, 2013 [facility] [address] [id number] [address] [place] [address], [place] [address] 14 May, 2013 [facility] [address] [id number] [address] [place] [address], [place] [address] 12 May, 2013 [facility] [address] [id number] [address] [place] [address], [place] [address] 12 May, 2013 [facility] [address] [id number] [address] [place] [address], [place] [address] May, [facility] [address] [id number] [address] [place] [address], [place] [address] May, [facility] [address] [id number] [address] [place] [address], [place] [address] 10 May, 2013 [facility] [address] [id number] [address] [place] [address], [place] [address] 10 May, 2013 [facility] [address] [id number] [address] [place] [address], [place] [address] 09 May, 2013 [facility] [address] [id number] [address] [place] [address], [place] [address] 09 May, 2013 [facility] [address] [id number] [address] [place] [address], [place] [address] 08 May, 2013 [facility] [address] [id number] [address] [place] [address], [place] [address] 07 May, 2013 [facility] [address] [id number] [address] [place] [address], [place] [address] 06 May, 2013 [facility] [address] [id number] [address] [place] [address], [place] [address] 06 May, 2013 [facility] [address] [id number] [address] [place] [address], [place] [address] 06 May, 2013 [facility] [address] [id number] [address] [place] [address], [place] [address] May, [facility] [address] [id number] [address] [place] [address], [place] [address] Apr, [facility] [address] [id number] [address] [place] [address], [place] [address] Apr, [facility] [address] [id number] [address] [place] [address], [place] [address] Apr, [facility] [address] [id number] [address] [place] [address], [place] [address] Apr, [facility] [address] [id number] [address] [place] [address], [place] [address] Mar, [facility] [address] [id number] [address] [place] [address], [place] [address] 23 Feb, 2013 [facility] [address] [id number] [address] [place] [address], [place] [address] 16 Feb, 2013 [facility] [address] [id number] [address] [place] [address], [place] [address] 13 Feb, 2013 [facility] [address] [id number] [address] [place] [address], [place] [address] 10 Feb, 2013 [facility] [address] [id number] [address] [place] [address], [place] [address] Feb, [facility] [address] [id number] [address] [place] [address], [place] [address] Feb, [facility] [address] [id number] [address] [place] [address], [place] [address] Jan, [facility] [address] [id number] [address] [place] [address], [place] [address] Jan, [facility] [address] [id number] [address] [place] [address], [place] [address] Jan, [facility] [address] [id number] [address] [place] [address], [place] [address] 17 Dec, 2012 [facility] [address] [id number] [facility] [place] [address] 17 Dec, 2012 [facility] [address] [id number] [address] [place] [address], [place] [address] 17 Dec, 2012 [facility] [address] [id number] [address] [place] [address], [place] [address] 15 Dec, 2012 [facility] [address] [id number] [address] [place] [address], [place] [address] Dec, [facility] [address] [id number] [address] [place] [address], [place] [address] Nov, [facility] [address] [id number] [address] [place] [address], [place] [address] Nov, [facility] [address] [id number] [address] [place] [address], [place] [address] Nov, [facility] [address] [id number] [address] [place] [address], [place] [address] Nov, [facility] [address] [id number] [address] [place] [address], [place] [address] Nov, [facility] [address] [id number] [address] [place] [address], [place] [address] 08 Nov, 2012 [facility] [address] [id number] [address] [place] [address], [place] [address] 07 Nov, 2012 [facility] [address] [id number] [address] [place] [address], [place] [address] 06 Nov, 2012 [facility] [address] [id number] [address] [place] [address], [place] [address] 05 Nov, 2012 [facility] [address] [id number] [address] [place] [address], [place] [address] 04 Nov, 2012 [facility] [address] [id number] [address] [place] [address], [place] [address] October, [facility] [address] [id number] [address] [place] [address], [place] [address] October, [facility] [address] [id number] [address] [place] [address], [place] [address] Sep, [facility] [address] [id number] [address] [place] [address], [place] [address] Sep, [facility] [address] [id number] [address] [place] [address], [place] [address] Sep, [facility] [address] [id number] [address] [place] [address], [place] [address] Sep, [facility] [address] [id number] [address] [place] [address], [place] [address] Sep, [facility] [address] [id number] [address] [place] [address], [place] [address] Aug, [facility] [address] [id number] [address] [place] [address], [place] [address] Aug, [facility] [address] [id number] [address] [place] [address], [place] [address] Jul, [facility] [address] [id number] [address] [place] [address], [place] [address] Jul, [facility] [address] [id number] [address] [place] [address], [place] [address] Jun, [facility] [address] [id number] [address] [place] [address], [place] [address] Jun, [facility] [address] [id number] [address] [place] [address], [place] [address] May, [facility] [address] [id number] [address] [place] [address], [place] [address] May, [facility] [address] [id number] [address] [place] [address], [place] [address] May, [facility] [address] [id number] [address] [place] [address], [place] [address] May, [facility] [address] [id number] [address] [place] [address], [place] [address] Apr, [facility] [address] [id number] [address] [place] [address], [place] [address] Apr, [facility] [address] [id number] [address] [place] [address], [place] [address] Apr, [facility] [address] [id number] [address] [place] [address], [place] [address] Apr, [facility] [address] [id number] [address] [place] [address], [place] [address] Apr, [facility] [address] [id number] [address] [place] [address], [place] [address] Apr, [facility] [address] [id number] [address] [place] [address], [place] [address] Apr, [facility] [address] [id number] [address] [place] [address] Apr, [facility] [address] [id number] [address] [place] [address], [place] [address] Apr, [facility] [address] [id number] [address] [place] [address] Mar, [facility] [address] [id number] [address] [place] [address] Mar, [facility] [address] [id number] [address] [place] [address] Feb, [facility] [address] [id number] [address] [place] [address], [place] [address] Jan, [facility] [address] [id number] [address] [place] [address] Jan, [facility] [address] [id number] [address] [place] [address] Dec, [facility] [address] [id number] [address] [place] [address] Nov, [facility] [address] [id number] [address] [place] [address], [place] [address] Nov, [facility] [address] [id number] [address] [place] [address], [place] [address] October, [facility] [address] [id number] [address] [place] [address], [place] [address] October, [facility] [address] [id number] [address] [place] [address], [place] [address] Sep, [facility] [address] [id number] [address] [place] [address], [place] [address] Sep, [facility] [address] [id number] [address] [place] [address], [place] [address] May, [facility] [address] [id number] [address] [place] [address] Apr, [facility] [address] [id number] [address] [place] [address], [place] [address] Apr, [facility] [address] [id number] [address] [place] [address], [place] [address] Apr, [facility] [address] [id number] [address] [place] [address] Apr, [facility] [address] [id number] [address] [place] [address], [place] [address] Apr, [facility] [address] [id number] [address] [place] [address] Apr, [facility] [address] [id number] [address] [place] [address], [place] [address] Apr, [facility] [address] [id number] [address] [place] [address], [place] [address] Apr, [facility] [address] [id number] [address] [place] [address], [place] [address] Mar, [facility] [address] [facility] [id number] [address] [place] [address] Mar, [facility] [address] [facility] [id number] [address] [place] [address] Mar, [facility] [address] [facility] [id number] [address] [place] [address] Mar, [facility] [address] [facility] [id number] [address] [place] [address] Mar, [facility] [address] [facility] [id number] [address] [place] [address] Mar, IMMUNIZATIONS No Known Immunizations SOCIAL HISTORY [...] tubal ligation Hospitalization History Mental floor at [facility]
--- OUTSIDE RECORDS SUMMARY | 2019-12-24 20:08 | XMS REPORT ---
Author Author Trey ANDRADE Organization [facility] Address [address] [place] [address] Care Team Providers Care Amphibious Operations Officer Name Role Phone SURESH ANDRADE Unavailable PROBLEMS Type Condition ICD9-CM Code [id number] Code Onset Dates Condition S tatus SNOMED Code Problem Unspecified epilepsy without mention of intractable ep ilepsy G40.909 Active 79223423 Problem Hypertension I10 Active 4636399 3 Problem Other chronic pain G89.29 Active 1 02197209 Problem Rheumatoid arthritis M06.9 Active 14518166 Problem Hyperlipidemia, unspecified E78.5 Ac tive 53128684 Problem Depressive disorder F32.9 Active 26045998 Problem Esophageal reflux K21.9 Active 23 3325094 Problem Carpal tunnel syndrome of left wrist G56.02 Active 738134966910626 Problem Presbyopia H52.4 Active 44599358 Problem Cough R05 Active 59810701 Problem Nondependent 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 Ac tive 332710259 Problem Unspecified open-angle glaucoma, stage unspecified H40.10X0 Feb, Active 59058115 Problem Anxiety disorder, unspecified F41.9 Active 426517283 Problem Insomnia G47.00 Active 711862610 Problem Neuropathy G62.9 Active 628200577 Problem Thyroid nodule E04.1 Active 03948 5005 Problem Multinodular goiter E04.2 Active 594322099 Problem Chronic tension-type headache, intractable G44.221 Active 708657675 Problem Acquired hypothyroidism E03.9 Active 303771438 Problem Goiter E04.9 Active 1190647 Problem Chronic obstructive pulmonary disease, unspecified COPD ty pe J44.9 Active 42332821 Problem Reactive airway disease with out complication, unspecified asthma severity, unspecified whether persistent J45.909 Active 344522677677 Problem BMI 40.0-44.9, adult Z68.41 Active 292085324 Problem Essential hypertension I10 Active 04291668 Problem Right-sided low back pain without sciatica M54.5 Active 456765708 Problem Tension headache G44.209 Active 398 428174 Problem Depression F32.9 Active 96513078 Problem Arthralgia M25.50 Active 75705677 Problem Urge incontinence of urine N39.41 Act chen 76767988 Problem Abnormal laboratory test R89.9 Activ e 935817739 Problem COPD with exacerbation J44.1 Active 350522769 Problem Seasonal allergic rhinitis due to pollen J30.1 Active 17924958 ALLERGIES No Information ENCOUNTERS Encounter Location Date Diagnosis [facility] [address] [place] [id number] [address] [place] [address] October, [facility] [address] [address] October, Thyroid nodule E04.1 and Mul tinodular goiter E04.2 [facility] [id number] [place] [id number] October, [facility] [address] [address] October, Thyroid nodule E04.1 and Mul tinodular goiter E04.2 [facility] [address] [address] Sep, Thyroid nodule E04.1 [facility] [address] [address] Sep, [facility] [address] [address] Sep, Counseled by nurse Z71.9 and Thyroid nodule E04.1 [facility] [address] [address] Sep, Acquired hypothyroidism E03. 9 ; Tension headache G44.209 ; Essential hypertension I10 ; Multinodular goiter E04.2 and BMI 40.0-44.9, adult Z68.41 [facility] [address] [address] Aug, Pelvic pain R10.2 ; Other sp ecified bacterial agents as the cause of diseases classified elsewhere B96.89 and Acute vaginitis N76.0 [place] [address] [address] [facility] [id number] [address] [place] [address] Apr, Bronchitis J40 [place] [address] [facility] [id number] [address] [place] [address] Apr, Acute gastritis without hemo rrhage, unspecified gastritis type K29.00 [place] [address] [facility] [id number] [address] [place] [address] Mar, [place] [address] [facility] [id number] [place] [address] Feb, [place] [address] [facility] [id number] [address] [place] [address] Feb, Mass of right side of neck R 22.1 and Multinodular goiter E04.2 [facility] [place] [address] [address] [facility] [id number] [address] [place] [address] Jan, Bronchitis J40 [place] [address] [facility] [id number] [address] [place] [address] October, Acquired hypothyroidism E03. 9 [place] [address] [facility] [id number] [address] [place] [address] October, Acute gastritis without hemo rrhage, unspecified gastritis type K29.00 ; Epigastric pain R10.13 ; Essential hypertension I10 ; Screening for colon cancer Z12.11 and BMI 40.0-44.9, adult Z68.41 [place] [address] [facility] [id number] [address] [place] [address] October, [facility] [address] [facility] [id number] [address] [place] [address] October, Chest pain R07.9 and Morbid obesity E66.[address] [facility] [place] [address] [place] [id number] [address] [place] [address] Sep, Generalized abdominal pain R 10.84 ; Morbid obesity E66.01 ; Non-intractable vomiting with nausea, unspecified vomiting type R11.2 and Seasonal allergic rhinitis due to pollen J30.[address] [facility] [address] [facility] [id number] [address] [place] [address] 28 Jul, 2018 COPD with exacerbation J44.1 ; Viral upper respiratory tract infection J06.9 and Morbid obesity E66.[address] [facility] [address] [id number] [address] [place] [address] Jun, Viral upper respiratory trac t infection J06.9 [facility] [address] [place] [id number] [address] [place] [address] Apr, Abnormal laboratory test R89 .9 [place] [address] [place] [id number] [place] [address] Apr, Abnormal laboratory test R89 .9 [place] [address] [place] [id number] [place] [address] Apr, Abnormal laboratory test R89 .9 [place] [address] [place] [id number] [place] [address] Apr, [facility] [address] [place] [id number] [address] [place] [address] Apr, [place] [address] [address] Apr, Nonintractable episodic head ache, unspecified headache type R51 ; Urge incontinence of urine N39.41 ; BMI 40.0-44.9, adult Z68.41 ; Myalgia M79.10 and Acute cystitis without hematuria N30.00 [facility] [address] [place] [id number] [address] [place] [address] Mar, Nasal congestion R09.81 ; Lo w back pain M54.5 ; Reactive airway disease without complication, unspecified asthma severity, unspecified whether persistent J45.909 ; Other chronic pain G89.29 ; Acute cystitis with hematuria N30.01 and BMI 40.0-44.9, adult Z68.41 [facility] [address] [address] Mar, Acute cystitis with hematuri a N30.[address] [facility] [address] [address] Mar, BMI 40.0-44.9, adult Z68.41 ; Acute cystitis with hematuria N30.01 ; Acute bilateral low back pain without sciatica M54.5 and Nausea R11.0 [place] [address] [address] Mar, Hypertension I10 ; Acquired hypothyroidism E03.9 ; Esophageal reflux K21.9 ; Chronic obstructive pulmonary disease, unspecified COPD type J44.9 and BMI 40.0-44.9, adult Z68.[address] [address] Mar, Hypertension I10 [place] [address] [address] Nov, Hyperlipidemia, unspecified E78.[address] [address] October, Chest pain, unspecified type R07.9 and Acquired hypothyroidism E03.[address] [address] October, Chest pain, unspecified type R07.9 ; Family history of coronary artery disease Z82.49 ; Carpal tunnel syndrome of left wrist G56.02 ; Hypertension I10 ; Esophageal reflux K21.9 ; Arthralgia M25.50 ; Acquired hypothyroidism E03.9 ; Cough R05 ; Nausea R11.0 ; Weight gain R63.5 and BMI 45.0-49.9, adult Z68.[address] [address] Jun, Acquired hypothyroidism E03. 9 and Cough R05 [place] [address] [address] May, [place] [address] [address] Feb, Tarsal tunnel syndrome of timi th lower extremities G57.53 and Neuropathy G62.9 [place] [address] [address] Dec, Pleuritis R09.1 [place] [address] [address] Nov, [place] [address] [address] October, Arthralgia, unspecified join t M25.50 and Allergy, initial encounter T78.40XA [place] [address] [address] October, [place] [address] [address] October, Acute recurrent maxillary si nusitis J01.01 and Arthralgia M25.50 [place] [address] [address] Sep, Pharyngitis due to other org anism J02.8 [place] [address] [place] [id number] [place] [address] Aug, Acute nasopharyngitis J00 [place] [address] [address] Aug, Multinodular goiter E04.2 [place] [address] [place] [id number] [place] [address] Aug, Thyroid nodule E04.1 [place] [address] [address] Jul, Tarsal tunnel syndrome of timi th lower extremities G57.53 [place] [address] [address] Jun, Pneumonia due to infectious organism, unspecified laterality, unspecified part of lung J18.9 [place] [address] [address] Jun, Bronchospasm with bronchitis , acute J20.9 [place] [address] [address] May, Acute non-recurrent frontal sinusitis J01.[address] [address] May, Flat foot [pes planus] (acqu ired), left foot M21.42 ; Flat foot [pes planus] (acquired), right foot M21.41 and Neuropathy G62.[address] [address] Apr, Chronic tension-type headach e, intractable G44.221 ; Right lower quadrant abdominal pain R10.31 ; Cervicalgia M54.2 ; Acute gastritis without hemorrhage, unspecified gastritis type K29.00 and Hypertension I10 [address] [address] Mar, Depression F32.9 and Anxiety disorder, unspecified F41.9 [place] [address] [address] Feb, Depressive disorder F32.9 an d Anxiety disorder, unspecified F41.[address] [address] Jan, Dysuria R30.0 ; Lower abdomi nal pain R10.30 ; Acute bilateral low back pain without sciatica M54.5 ; Nausea and vomiting, unspecified intactability, vomiting of unspecified type R11.2 ; Pain in right foot M79.671 and Pain of left foot M79.672 [facility] [address] [facility] [id number] [address] [place] [address] Dec, Urinary tract infection, sit e not specified N39.0 [facility] [address] [id number] [address] [place] [address] Dec, [facility] [address] [facility] [id number] [address] [place] [address] Nov, [facility] [address] [facility] [id number] [address] [place] [address] Nov, Dysuria R30.0 [facility] [address] [facility] [id number] [address] [place] [address] Nov, Dysuria R30.0 and Acute cyst itis with hematuria N30.01 [facility] [address] [facility] [id number] [address] [place] [address] October, Nausea R11.0 [facility] [address] [facility] [id number] [address] [place] [address] October, Thyroid nodule E04.1 ; Carpa l tunnel syndrome, left upper limb G56.02 ; Carpal tunnel syndrome, right upper limb G56.01 and Constipation, unspecified constipation type K59.00 [facility] [address] [facility] [id number] [address] [place] [address] October, [facility] [address] [facility] [id number] [address] [place] [address] October, Thyroid nodule E04.1 [facility] [address] [facility] [id number] [address] [place] [address] October, Cold thyroid nodule E04.1 [facility] [address] [facility] [id number] [address] [place] [address] October, [facility] [address] [facility] [id number] [address] [place] [address] Sep, Thyroid nodule E04.1 [facility] [address] [place] [id number] [address] [place] [address] Sep, Thyroid nodule E04.1 [place] [address] [place] [id number] [place] [address] Sep, Thyroid nodule E04.1 ; Hyper tension I10 ; Esophageal reflux K21.9 and Hyperlipidemia, unspecified E78.5 [place] [address] [place] [id number] [place] [address] Aug, Other chronic pain G89.29 ; Sinusitis J32.9 and Hypertension I10 [place] [address] [place] [id number] [place] [address] Jul, [place] [address] [address] 15 Jul, 2015 [place] [address] [address] 10 Jul, 2015 Insomnia G47.00 and Arthralg ia M25.50 [place] [address] [address] 10 Jul, 2015 Depressive disorder F32.9 an d Anxiety disorder, unspecified F41.9 [place] [address] [place] [id number] [place] [address] May, Right-sided low back pain wi thout sciatica M54.5 and Depression F32.9 [place] [id number] [place] [address] Apr, Hematuria R31.9 [place] [address] [place] [id number] [address] [place] [address] Mar, Other chronic pain G89.29 [place] [address] [place] [id number] [place] [address] Mar, Other chronic pain G89.29 [place] [address] [place] [id number] [place] [address] Feb, [place] [address] [id number] [address] [place] [address] Feb, Other chronic pain 338.29 ; Dysuria 788.1 ; UTI (urinary tract infection) 599.0 ; Insomnia 780.52 ; Hot flashes 627.2 and Hypertension 401.9 [facility] [address] [facility] [id number] [address] [place] [address] Feb, Dysuria 788.1 [facility] [address] [facility] [id number] [address] [place] [address] Feb, [facility] [address] [facility] [id number] [address] [place] [address] Jan, [facility] [address] [facility] [id number] [address] [place] [address] Jan, [facility] [address] [place] [id number] [address] [place] [address] Jan, Fibromyalgia 729.1 ; Hyperte nsion 401.9 ; Dysthymia 300.4 and Hot flashes 627.2 [facility] [address] [facility] [id number] [address] [place] [address] Dec, [facility] [address] [facility] [id number] [address] [place] [address] Dec, [facility] [address] [facility] [id number] [address] [place] [address] Dec, [facility] [address] [facility] [id number] [address] [place] [address] Nov, Other chronic pain 338.29 [facility] [address] [facility] [id number] [address] [place] [address] October, [facility] [address] [facility] [id number] [address] [place] [address] October, [facility] [address] [facility] [id number] [address] [place] [address] Sep, [facility] [address] [id number] [facility] [place] [address] 13 Sep, 2014 [facility] [address] [id number] [address] [place] [address], [place] [address] Aug, [facility] [address] [id number] [address] [place] [address], [place] [address] Aug, [facility] [address] [id number] [address] [place] [address], [place] [address] Aug, [facility] [address] [id number] [address] [place] [address], [place] [address] Aug, [facility] [address] [id number] [address] [place] [address], [place] [address] Aug, [facility] [address] [id number] [address] [place] [address], [place] [address] Aug, [facility] [address] [id number] [address] [place] [address], [place] [address] Aug, [facility] [address] [id number] [address] [place] [address], [place] [address] Aug, [facility] [address] [id number] [address] [place] [address], [place] [address] Aug, [facility] [address] [id number] [address] [place] [address], [place] [address] Aug, [facility] [address] [id number] [address] [place] [address], [place] [address] Aug, [facility] [address] [id number] [address] [place] [address], [place] [address] Aug, [facility] [address] [id number] [address] [place] [address], [place] [address] Aug, [facility] [address] [id number] [address] [place] [address], [place] [address] Aug, [facility] [address] [id number] [address] [place] [address], [place] [address] Jul, [facility] [address] [id number] [address] [place] [address], [place] [address] Jul, [facility] [address] [id number] [address] [place] [address], [place] [address] Jul, [facility] [address] [id number] [address] [place] [address], [place] [address] Jul, [facility] [address] [id number] [address] [place] [address], [place] [address] Jul, [facility] [address] [id number] [address] [place] [address], [place] [address] Jul, [facility] [address] [id number] [address] [place] [address], [place] [address] Jun, [facility] [address] [id number] [address] [place] [address], [place] [address] Jun, [facility] [address] [id number] [address] [place] [address], [place] [address] Jun, [facility] [address] [id number] [address] [place] [address], [place] [address] Jun, [facility] [address] [id number] [address] [place] [address], [place] [address] May, [facility] [address] [id number] [address] [place] [address], [place] [address] May, [facility] [address] [id number] [address] [place] [address], [place] [address] May, [facility] [address] [id number] [address] [place] [address], [place] [address] May, [facility] [address] [id number] [address] [place] [address], [place] [address] May, [facility] [address] [id number] [address] [place] [address], [place] [address] May, [facility] [address] [id number] [address] [place] [address], [place] [address] May, [facility] [address] [id number] [address] [place] [address], [place] [address] May, [facility] [address] [id number] [address] [place] [address], [place] [address] May, [facility] [address] [id number] [address] [place] [address], [place] [address] May, [facility] [address] [id number] [address] [place] [address], [place] [address] Apr, [facility] [address] [id number] [address] [place] [address], [place] [address] Apr, [facility] [address] [id number] [address] [place] [address], [place] [address] Apr, [facility] [address] [id number] [address] [place] [address], [place] [address] Apr, [facility] [address] [id number] [address] [place] [address], [place] [address] Apr, [facility] [address] [id number] [address] [place] [address], [place] [id number] Apr, [facility] [address] [id number] [address] [place] [address], [place] [id number] Apr, [facility] [address] [id number] [address] [place] [address], [place] [id number] Apr, [facility] [address] [id number] [address] [place] [address], [place] [id number] Apr, [facility] [address] [id number] [address] [place] [address], [place] [id number] Mar, [facility] [address] [id number] [address] [place] [address], [place] [id number] Mar, [facility] [address] [id number] [address] [place] [address], [place] [id number] Mar, [facility] [address] [id number] [address] [place] [address], [place] [id number] Mar, [facility] [address] [id number] [address] [place] [address], [place] [id number] Mar, [facility] [address] [id number] [address] [place] [address], [place] [id number] Mar, [facility] [address] [id number] [address] [place] [address], [place] [id number] Mar, [facility] [address] [id number] [address] [place] [address], [place] [id number] Mar, [facility] [address] [id number] [address] [place] [address], [place] [id number] 30 Feb, 2014 [facility] [address] [id number] [address] [place] [address], [place] [id number] 30 Feb, 2013 [facility] [address] [id number] [address] [place] [address], [place] [id number] 24 Feb, 2013 [facility] [address] [id number] [address] [place] [address], [place] [id number] 24 Feb, 2013 [facility] [address] [id number] [address] [place] [address], [place] [id number] 22 Feb, 2013 [facility] [address] [id number] [address] [place] [address], [place] [id number] 22 Feb, 2013 [facility] [address] [id number] [address] [place] [address], [place] [id number] 10 Feb, 2013 [facility] [address] [id number] [address] [place] [address], [place] [id number] 10 Feb, 2013 [facility] [address] [id number] [address] [place] [address], [place] [id number] 03 Feb, 2013 [facility] [address] [id number] [address] [place] [address], [place] [id number] 03 Feb, 2013 [facility] [address] [id number] [address] [place] [address] [place] [id number] Feb, 2013 [facility] [address] [id number] [id number] [place] [address] Feb, 2013 [facility] [address] [id number] [address] [place] [address], [place] [address] Feb, [facility] [address] [id number] [address] [place] [address], [place] [address] Feb, [facility] [address] [id number] [address] [place] [address], [place] [address] Jan, [facility] [address] [id number] [address] [place] [address], [place] [address] Jan, [facility] [address] [id number] [address] [place] [address], [place] [address] Dec, [facility] [address] [id number] [address] [place] [address], [place] [address] Dec, [facility] [address] [id number] [address] [place] [address], [place] [address] Dec, [facility] [address] [id number] [address] [place] [address], [place] [address] Dec, [facility] [address] [id number] [address] [place] [address], [place] [id number] Dec, [facility] [address] [id number] [address] [place] [address], [place] [address] Dec, [facility] [address] [id number] [address] [place] [address], [place] [address] Dec, [facility] [address] [id number] [address] [place] [address], [place] [address] Dec, [facility] [address] [id number] [address] [place] [address], [place] [address] Dec, [facility] [address] [id number] [address] [place] [address], [place] [address] Dec, [facility] [address] [id number] [facility] [place] [address] 14 Dec, 2013 [facility] [address] [id number] [facility] [place] [address] Dec, 2013 [facility] [address] [id number] [address] [place] [address], [place] [address] Dec, 2013 [facility] [address] [id number] [address] [place] [address], [place] [address] Dec, 2013 [facility] [address] [id number] [address] [place] [address], [place] [address] Dec, 2013 [facility] [address] [id number] [address] [place] [address], [place] [address] Dec, 2013 [facility] [address] [id number] [address] [place] [address], [place] [address] Dec, 2013 [facility] [address] [id number] [address] [place] [address], [place] [address] Dec, [facility] [address] [id number] [address] [place] [address], [place] [address] Dec, [facility] [address] [id number] [address] [place] [address], [place] [address] Nov, [facility] [address] [id number] [address] [place] [address], [place] [address] Nov, [facility] [address] [id number] [address] [place] [address], [place] [address] Nov, [facility] [address] [id number] [address] [place] [address], [place] [address] Nov, [facility] [address] [id number] [address] [place] [address], [place] [address] Nov, [facility] [address] [id number] [address] [place] [address], [place] [address] Nov, [facility] [address] [id number] [address] [place] [address], [place] [address] Nov, [facility] [address] [id number] [facility] [place] [address] Nov, [facility] [address] [id number] [facility] [place] [address] Nov, [facility] [address] [id number] [address] [place] [address], [place] [address] October, [facility] [address] [id number] [address] [place] [address], [place] [address] October, [facility] [address] [id number] [address] [place] [address], [place] [address] October, [facility] [address] [id number] [address] [place] [address], [place] [address] October, [facility] [address] [id number] [address] [place] [address], [place] [address] October, [facility] [address] [id number] [address] [place] [address], [place] [address] October, [facility] [address] [id number] [address] [place] [address], [place] [address] October, [facility] [address] [id number] [address] [place] [address], [place] [address] October, [facility] [address] [id number] [address] [place] [address], [place] [address] Sep, [facility] [address] [id number] [address] [place] [address], [place] [address] Sep, [facility] [address] [id number] [address] [place] [address], [place] [address] Sep, [facility] [address] [id number] [address] [place] [address], [place] [address] Sep, [facility] [address] [id number] [address] [place] [address], [place] [address] Sep, [facility] [address] [id number] [address] [place] [address], [place] [address] Sep, [facility] [address] [id number] [address] [place] [address], [place] [address] Sep, [facility] [address] [id number] [address] [place] [address], [place] [address] Aug, [facility] [address] [id number] [address] [place] [address], [place] [address] Aug, [facility] [address] [id number] [address] [place] [address], [place] [address] Aug, [facility] [address] [id number] [address] [place] [address], [place] [address] Aug, [facility] [address] [id number] [address] [place] [address], [place] [address] Aug, [facility] [address] [id number] [address] [place] [address], [place] [address] Aug, [facility] [address] [id number] [address] [place] [address], [place] [address] Jul, [facility] [address] [id number] [address] [place] [address], [place] [address] Jul, [facility] [address] [id number] [address] [place] [address], [place] [address] Jul, [facility] [address] [id number] [address] [place] [address], [place] [address] Jul, [facility] [address] [id number] [address] [place] [address], [place] [address] Jul, [facility] [address] [id number] [address] [place] [address], [place] [address] Jul, [facility] [address] [id number] [address] [place] [address], [place] [address] Jun, [facility] [address] [id number] [address] [place] [address], [place] [address] Jun, [facility] [address] [id number] [address] [place] [address], [place] [address] Jun, [facility] [address] [id number] [address] [place] [address], [place] [address] Jun, [facility] [address] [id number] [address] [place] [address], [place] [address] Jun, [facility] [address] [id number] [address] [place] [address], [place] [address] Jun, [facility] [address] [id number] [address] [place] [address], [place] [address] Jun, [facility] [address] [id number] [address] [place] [address], [place] [address] Jun, [facility] [address] [id number] [address] [place] [address], [place] [address] Jun, [facility] [address] [id number] [address] [place] [address], [place] [address] Jun, [facility] [address] [id number] [address] [place] [address], [place] [address] Jun, [facility] [address] [id number] [address] [place] [address], [place] [address] Jun, [facility] [address] [id number] [address] [place] [address], [place] [address] Jun, [facility] [address] [id number] [address] [place] [address], [place] [address] May, [facility] [address] [id number] [address] [place] [address], [place] [address] May, [facility] [address] [id number] [address] [place] [address], [place] [address] May, [facility] [address] [id number] [address] [place] [address], [place] [address] May, [facility] [address] [id number] [address] [place] [address], [place] [address] 26 May, 2013 [facility] [address] [id number] [address] [place] [address], [place] [address] 14 May, 2013 [facility] [address] [id number] [address] [place] [address], [place] [address] 14 May, 2013 [facility] [address] [id number] [address] [place] [address], [place] [address] 12 May, 2013 [facility] [address] [id number] [address] [place] [address], [place] [address] 12 May, 2013 [facility] [address] [id number] [address] [place] [address], [place] [address] May, [facility] [address] [id number] [address] [place] [address], [place] [address] May, [facility] [address] [id number] [address] [place] [address], [place] [address] 10 May, 2013 [facility] [address] [id number] [address] [place] [address], [place] [address] 10 May, 2013 [facility] [address] [id number] [address] [place] [address], [place] [address] 09 May, 2013 [facility] [address] [id number] [address] [place] [address], [place] [address] 09 May, 2013 [facility] [address] [id number] [address] [place] [address], [place] [address] 08 May, 2013 [facility] [address] [id number] [address] [place] [address], [place] [address] 07 May, 2013 [facility] [address] [id number] [address] [place] [address], [place] [address] 06 May, 2013 [facility] [address] [id number] [address] [place] [address], [place] [address] 06 May, 2013 [facility] [address] [id number] [address] [place] [address], [place] [address] 06 May, 2013 [facility] [address] [id number] [address] [place] [address], [place] [address] May, [facility] [address] [id number] [address] [place] [address], [place] [address] Apr, [facility] [address] [id number] [address] [place] [address], [place] [address] Apr, [facility] [address] [id number] [address] [place] [address], [place] [address] Apr, [facility] [address] [id number] [address] [place] [address], [place] [address] Apr, [facility] [address] [id number] [address] [place] [address], [place] [address] Mar, [facility] [address] [id number] [address] [place] [address], [place] [address] 23 Feb, 2013 [facility] [address] [id number] [address] [place] [address], [place] [address] 16 Feb, 2013 [facility] [address] [id number] [address] [place] [address], [place] [address] 13 Feb, 2013 [facility] [address] [id number] [address] [place] [address], [place] [address] 10 Feb, 2013 [facility] [address] [id number] [address] [place] [address], [place] [address] Feb, [facility] [address] [id number] [address] [place] [address], [place] [address] Feb, [facility] [address] [id number] [address] [place] [address], [place] [address] Jan, [facility] [address] [id number] [address] [place] [address], [place] [address] Jan, [facility] [address] [id number] [address] [place] [address], [place] [address] Jan, [facility] [address] [id number] [address] [place] [address], [place] [address] 17 Dec, 2012 [facility] [address] [id number] [facility] [place] [address] 17 Dec, 2012 [facility] [address] [id number] [address] [place] [address], [place] [address] 17 Dec, 2012 [facility] [address] [id number] [address] [place] [address], [place] [address] 15 Dec, 2012 [facility] [address] [id number] [address] [place] [address], [place] [address] Dec, [facility] [address] [id number] [address] [place] [address], [place] [address] Nov, [facility] [address] [id number] [address] [place] [address], [place] [address] Nov, [facility] [address] [id number] [address] [place] [address], [place] [address] Nov, [facility] [address] [id number] [address] [place] [address], [place] [address] Nov, [facility] [address] [id number] [address] [place] [address], [place] [address] Nov, [facility] [address] [id number] [address] [place] [address], [place] [address] 08 Nov, 2012 [facility] [address] [id number] [address] [place] [address], [place] [address] 07 Nov, 2012 [facility] [address] [id number] [address] [place] [address], [place] [address] 06 Nov, 2012 [facility] [address] [id number] [address] [place] [address], [place] [address] 05 Nov, 2012 [facility] [address] [id number] [address] [place] [address], [place] [address] 04 Nov, 2012 [facility] [address] [id number] [address] [place] [address], [place] [address] October, [facility] [address] [id number] [address] [place] [address], [place] [address] October, [facility] [address] [id number] [address] [place] [address], [place] [address] Sep, [facility] [address] [id number] [address] [place] [address], [place] [address] Sep, [facility] [address] [id number] [address] [place] [address], [place] [address] Sep, [facility] [address] [id number] [address] [place] [address], [place] [address] Sep, [facility] [address] [id number] [address] [place] [address], [place] [address] Sep, [facility] [address] [id number] [address] [place] [address], [place] [address] Aug, [facility] [address] [id number] [address] [place] [address], [place] [address] Aug, [facility] [address] [id number] [address] [place] [address], [place] [address] Jul, [facility] [address] [id number] [address] [place] [address], [place] [address] Jul, [facility] [address] [id number] [address] [place] [address], [place] [address] Jun, [facility] [address] [id number] [address] [place] [address], [place] [address] Jun, [facility] [address] [id number] [address] [place] [address], [place] [address] May, [facility] [address] [id number] [address] [place] [address], [place] [address] May, [facility] [address] [id number] [address] [place] [address], [place] [address] May, [facility] [address] [id number] [address] [place] [address], [place] [address] May, [facility] [address] [id number] [address] [place] [address], [place] [address] Apr, [facility] [address] [id number] [address] [place] [address], [place] [address] Apr, [facility] [address] [id number] [address] [place] [address], [place] [address] Apr, [facility] [address] [id number] [address] [place] [address], [place] [address] Apr, [facility] [address] [id number] [address] [place] [address], [place] [address] Apr, [facility] [address] [id number] [address] [place] [address], [place] [address] Apr, [facility] [address] [id number] [address] [place] [address], [place] [address] Apr, [facility] [address] [id number] [address] [place] [address] Apr, [facility] [address] [id number] [address] [place] [address], [place] [address] Apr, [facility] [address] [id number] [address] [place] [address] Mar, [facility] [address] [id number] [address] [place] [address] Mar, [facility] [address] [id number] [address] [place] [address] Feb, [facility] [address] [id number] [address] [place] [address], [place] [address] Jan, [facility] [address] [id number] [address] [place] [address] Jan, [facility] [address] [id number] [address] [place] [id number] Dec, [facility] [address] [id number] [address] [place] [id number] Nov, [facility] [address] [id number] [address] [place] [address], [place] [address] Nov, [facility] [address] [id number] [address] [place] [address], [place] [address] October, [facility] [address] [id number] [address] [place] [address], [place] [address] October, [facility] [address] [id number] [address] [place] [address], [place] [address] Sep, [facility] [address] [id number] [address] [place] [address], [place] [address] Sep, [facility] [address] [id number] [address] [place] [address], [place] [address] May, [facility] [address] [id number] [address] [place] [id number] Apr, [facility] [address] [id number] [address] [place] [address], [place] [id number] Apr, [facility] [address] [id number] [address] [place] [address], [place] [id number] Apr, [facility] [address] [id number] [address] [place] [id number] Apr, [facility] [address] [id number] [address] [place] [address], [place] [id number] Apr, [facility] [address] [id number] [address] [place] [id number] Apr, [facility] [address] [id number] [address] [place] [address], [place] [id number] Apr, [facility] [address] [id number] [address] [place] [address], [place] [id number] Apr, [facility] [address] [id number] [address] [place] [address], [place] [id number] Mar, [facility] [address] [facility] [id number] [address] [place] [id number] Mar, [facility] [address] [facility] [id number] [address] [place] [id number] Mar, [facility] [address] [facility] [id number] [address] [place] [id number] Mar, [facility] [address] [facility] [id number] [address] [place] [id number] Mar, [facility] [address] [facility] [id number] [address] [place] [id number] Mar, IMMUNIZATIONS No Known Immunizations SOCIAL HISTORY [...] tubal ligation Hospitalization History Mental floor at [facility]
--- OUTSIDE RECORDS SUMMARY | 2019-12-24 20:08 | XMS REPORT ---
Author Author Trey ANDRADE Organization [facility] Address [address] [place] [address] Care Team Providers Care Relief Mate Name Role Phone SURESH ANDRADE Unavailable PROBLEMS Type Condition ICD9-CM Code MOU67-IO Code Onset Dates Condition S tatus SNOMED Code Problem Unspecified epilepsy without mention of intractable ep ilepsy G40.909 Active 22167905 Problem Hypertension I10 Active 1795809 3 Problem Other chronic pain G89.29 Active 1 56143057 Problem Rheumatoid arthritis M06.9 Active 61656261 Problem Hyperlipidemia, unspecified E78.5 Ac tive 38394662 Problem Depressive disorder F32.9 Active 32631031 Problem Esophageal reflux K21.9 Active 23 7003626 Problem Carpal tunnel syndrome of left wrist G56.02 Active 945892391511110 Problem Presbyopia H52.4 Active 85861604 Problem Cough R05 Active 15624292 Problem Nondependent 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 Ac tive 615666159 Problem Unspecified open-angle glaucoma, stage unspecified H40.10X0 Feb, Active 00549425 Problem Anxiety disorder, unspecified F41.9 Active 919152586 Problem Insomnia G47.00 Active 747006345 Problem Neuropathy G62.9 Active 736393786 Problem Thyroid nodule E04.1 Active 84258 5005 Problem Multinodular goiter E04.2 Active 920609173 Problem Chronic tension-type headache, intractable G44.221 Active 314164429 Problem Acquired hypothyroidism E03.9 Active 772275839 Problem Goiter E04.9 Active 8672502 Problem Chronic obstructive pulmonary disease, unspecified COPD ty pe J44.9 Active 98177017 Problem Reactive airway disease with out complication, unspecified asthma severity, unspecified whether persistent J45.909 Active 571896117748 Problem BMI 40.0-44.9, adult Z68.41 Active 093892140 Problem Essential hypertension I10 Active 69178610 Problem Right-sided low back pain without sciatica M54.5 Active 562186936 Problem Tension headache G44.209 Active 398 004164 Problem Depression F32.9 Active 12682788 Problem Arthralgia M25.50 Active 16372288 Problem Urge incontinence of urine N39.41 Act chen 35784170 Problem Abnormal laboratory test R89.9 Activ e 032183045 Problem COPD with exacerbation J44.1 Active 369834498 Problem Seasonal allergic rhinitis due to pollen J30.1 Active 54581797 ALLERGIES No Information ENCOUNTERS Encounter Location Date Diagnosis [facility] [address] [place] [id number] [place] [address] October, [facility] [address] [address] October, Thyroid nodule E04.1 and Mul tinodular goiter E04.2 [facility] [address] [place] [id number] October, [facility] [address] [address] October, Thyroid nodule E04.1 and Mul tinodular goiter E04.2 [facility] [address] [address] Sep, Thyroid nodule E04.1 [facility] [address] [address] Sep, [facility] [address] [address] Sep, Counseled by nurse Z71.9 and Thyroid nodule E04.1 [facility] [address] [address] Sep, Acquired hypothyroidism E03. 9 ; Tension headache G44.209 ; Essential hypertension I10 ; Multinodular goiter E04.2 and BMI 40.0-44.9, adult Z68.41 [facility] [address] [address] Aug, Pelvic pain R10.2 ; Other sp ecified bacterial agents as the cause of diseases classified elsewhere B96.89 and Acute vaginitis N76.0 [place] [address] [address] [facility] [id number] [address] [place] [address] Apr, Bronchitis J40 [place] [address] [address] [facility] [id number] [address] [place] [address] Apr, Acute gastritis without hemo rrhage, unspecified gastritis type K29.00 [place] [address] [address] [facility] [id number] [address] [place] [address] Mar, [place] [address] [facility] [id number] [place] [address] Feb, [place] [address] [address] [facility] [id number] [address] [place] [address] Feb, Mass of right side of neck R 22.1 and Multinodular goiter E04.2 [facility] [place] [address] [address] [facility] [id number] [address] [place] [address] Jan, Bronchitis J40 [place] [address] [address] [facility] [id number] [address] [place] [address] October, Acquired hypothyroidism E03. 9 [place] [address] [address] [facility] [id number] [address] [place] [address] October, Acute gastritis without hemo rrhage, unspecified gastritis type K29.00 ; Epigastric pain R10.13 ; Essential hypertension I10 ; Screening for colon cancer Z12.11 and BMI 40.0-44.9, adult Z68.41 [place] [address] [address] [facility] [id number] [address] [place] [address] October, [facility] [address] [facility] [id number] [address] [place] [address] October, Chest pain R07.9 and Morbid obesity E66.01 [facility] [place] [address] [address] [place] [id number] [address] [place] [address] Sep, Generalized abdominal pain R 10.84 ; Morbid obesity E66.01 ; Non-intractable vomiting with nausea, unspecified vomiting type R11.2 and Seasonal allergic rhinitis due to pollen J30.1 [facility] [address] [facility] [id number] [address] [place] [address] 28 Jul, 2018 COPD with exacerbation J44.1 ; Viral upper respiratory tract infection J06.9 and Morbid obesity E66.01 [facility] [id number] [place] [address] Jun, Viral upper respiratory trac t infection J06.9 [facility] [address] [id number] [place] [address] Apr, Abnormal laboratory test R89 .9 [place] [address] [place] [id number] [place] [address] Apr, Abnormal laboratory test R89 .9 [place] [address] [place] [id number] [place] [address] Apr, Abnormal laboratory test R89 .9 [place] [address] [place] [id number] [place] [address] Apr, [facility] [address] [place] [id number] [address] [place] [address] Apr, [place] [address] [address] Apr, Nonintractable episodic head ache, unspecified headache type R51 ; Urge incontinence of urine N39.41 ; BMI 40.0-44.9, adult Z68.41 ; Myalgia M79.10 and Acute cystitis without hematuria N30.00 [facility] [address] [place] [id number] [address] [place] [address] Mar, Nasal congestion R09.81 ; Lo w back pain M54.5 ; Reactive airway disease without complication, unspecified asthma severity, unspecified whether persistent J45.909 ; Other chronic pain G89.29 ; Acute cystitis with hematuria N30.01 and BMI 40.0-44.9, adult Z68.41 [facility] [address] [address] Mar, Acute cystitis with hematuri a N30.01 [facility] [address] [address] Mar, BMI 40.0-44.9, adult Z68.41 ; Acute cystitis with hematuria N30.01 ; Acute bilateral low back pain without sciatica M54.5 and Nausea R11.0 [place] [address] [address] Mar, Hypertension I10 ; Acquired hypothyroidism E03.9 ; Esophageal reflux K21.9 ; Chronic obstructive pulmonary disease, unspecified COPD type J44.9 and BMI 40.0-44.9, adult Z68.[address] [address] Mar, Hypertension I10 [place] [address] [address] Nov, Hyperlipidemia, unspecified E78.[address] [address] October, Chest pain, unspecified type R07.9 and Acquired hypothyroidism E03.[address] [address] October, Chest pain, unspecified type R07.9 ; Family history of coronary artery disease Z82.49 ; Carpal tunnel syndrome of left wrist G56.02 ; Hypertension I10 ; Esophageal reflux K21.9 ; Arthralgia M25.50 ; Acquired hypothyroidism E03.9 ; Cough R05 ; Nausea R11.0 ; Weight gain R63.5 and BMI 45.0-49.9, adult Z68.[address] [address] Jun, Acquired hypothyroidism E03. 9 and Cough R05 [place] [address] [address] May, [place] [address] [address] Feb, Tarsal tunnel syndrome of timi th lower extremities G57.53 and Neuropathy G62.9 [place] [address] [address] Dec, Pleuritis R09.1 [place] [address] [address] Nov, [place] [address] [address] October, Arthralgia, unspecified join t M25.50 and Allergy, initial encounter T78.40XA [place] [address] [address] October, [place] [address] [address] October, Acute recurrent maxillary si nusitis J01.01 and Arthralgia M25.50 [place] [address] [address] Sep, Pharyngitis due to other org anism J02.8 [place] [address] [place] [id number] [place] [address] Aug, Acute nasopharyngitis J00 [place] [address] [address] Aug, Multinodular goiter E04.2 [place] [address] [place] [id number] [place] [address] Aug, Thyroid nodule E04.1 [place] [address] [address] Jul, Tarsal tunnel syndrome of timi th lower extremities G57.53 [place] [address] [address] Jun, Pneumonia due to infectious organism, unspecified laterality, unspecified part of lung J18.9 [place] [address] [address] Jun, Bronchospasm with bronchitis , acute J20.9 [place] [address] [address] May, Acute non-recurrent frontal sinusitis J01.[address] [address] May, Flat foot [pes planus] (acqu ired), left foot M21.42 ; Flat foot [pes planus] (acquired), right foot M21.41 and Neuropathy G62.[address] [address] Apr, Chronic tension-type headach e, intractable G44.221 ; Right lower quadrant abdominal pain R10.31 ; Cervicalgia M54.2 ; Acute gastritis without hemorrhage, unspecified gastritis type K29.00 and Hypertension I10 [address] [address] Mar, Depression F32.9 and Anxiety disorder, unspecified F41.9 [place] [address] [address] Feb, Depressive disorder F32.9 an d Anxiety disorder, unspecified F41.[address] [address] Jan, Dysuria R30.0 ; Lower abdomi nal pain R10.30 ; Acute bilateral low back pain without sciatica M54.5 ; Nausea and vomiting, unspecified intactability, vomiting of unspecified type R11.2 ; Pain in right foot M79.671 and Pain of left foot M79.672 [facility] [address] [facility] [id number] [address] [place] [address] Dec, Urinary tract infection, sit e not specified N39.0 [facility] [address] [id number] [address] [place] [address] Dec, [facility] [address] [facility] [id number] [address] [place] [address] Nov, [facility] [address] [facility] [id number] [address] [place] [address] Nov, Dysuria R30.0 [facility] [address] [facility] [id number] [address] [place] [address] Nov, Dysuria R30.0 and Acute cyst itis with hematuria N30.01 [facility] [address] [facility] [id number] [address] [place] [address] October, Nausea R11.0 [facility] [address] [facility] [id number] [address] [place] [address] October, Thyroid nodule E04.1 ; Carpa l tunnel syndrome, left upper limb G56.02 ; Carpal tunnel syndrome, right upper limb G56.01 and Constipation, unspecified constipation type K59.00 [facility] [address] [facility] [id number] [address] [place] [address] October, [facility] [address] [facility] [id number] [address] [place] [address] October, Thyroid nodule E04.1 [facility] [address] [facility] [id number] [address] [place] [address] October, Cold thyroid nodule E04.1 [facility] [address] [facility] [id number] [address] [place] [address] October, [facility] [address] [facility] [id number] [address] [place] [address] Sep, Thyroid nodule E04.1 [facility] [address] [place] [id number] [address] [place] [address] Sep, Thyroid nodule E04.1 [place] [address] [place] [id number] [place] [address] Sep, Thyroid nodule E04.1 ; Hyper tension I10 ; Esophageal reflux K21.9 and Hyperlipidemia, unspecified E78.5 [place] [address] [place] [id number] [place] [address] Aug, Other chronic pain G89.29 ; Sinusitis J32.9 and Hypertension I10 [place] [address] [place] [id number] [place] [address] Jul, [place] [address] [address] 15 Jul, 2015 [place] [address] [address] 10 Jul, 2015 Insomnia G47.00 and Arthralg ia M25.50 [place] [address] [address] 10 Jul, 2015 Depressive disorder F32.9 an d Anxiety disorder, unspecified F41.9 [place] [address] [place] [id number] [place] [address] May, Right-sided low back pain wi thout sciatica M54.5 and Depression F32.9 [place] [id number] [place] [address] Apr, Hematuria R31.9 [place] [address] [place] [id number] [address] [place] [address] Mar, Other chronic pain G89.29 [place] [address] [place] [id number] [place] [address] Mar, Other chronic pain G89.29 [place] [address] [place] [id number] [place] [address] Feb, [place] [address] [id number] [address] [place] [address] Feb, Other chronic pain 338.29 ; Dysuria 788.1 ; UTI (urinary tract infection) 599.0 ; Insomnia 780.52 ; Hot flashes 627.2 and Hypertension 401.9 [facility] [address] [facility] [id number] [address] [place] [address] Feb, Dysuria 788.1 [facility] [address] [facility] [id number] [address] [place] [address] Feb, [facility] [address] [facility] [id number] [address] [place] [address] Jan, [facility] [address] [facility] [id number] [address] [place] [address] Jan, [facility] [address] [place] [id number] [address] [place] [address] Jan, Fibromyalgia 729.1 ; Hyperte nsion 401.9 ; Dysthymia 300.4 and Hot flashes 627.2 [facility] [address] [facility] [id number] [address] [place] [address] Dec, [facility] [address] [facility] [id number] [address] [place] [address] Dec, [facility] [address] [facility] [id number] [address] [place] [address] Dec, [facility] [address] [facility] [id number] [address] [place] [address] Nov, Other chronic pain 338.29 [facility] [address] [facility] [id number] [address] [place] [address] October, [facility] [address] [facility] [id number] [address] [place] [address] October, [facility] [address] [facility] [id number] [address] [place] [address] Sep, [facility] [address] [id number] [facility] [place] [address] 13 Sep, 2014 [facility] [address] [id number] [address] [place] [address], [place] [address] Aug, [facility] [address] [id number] [address] [place] [address], [place] [address] Aug, [facility] [address] [id number] [address] [place] [address], [place] [address] Aug, [facility] [address] [id number] [address] [place] [address], [place] [address] Aug, [facility] [address] [id number] [address] [place] [address], [place] [address] Aug, [facility] [address] [id number] [address] [place] [address], [place] [address] Aug, [facility] [address] [id number] [address] [place] [address], [place] [address] Aug, [facility] [address] [id number] [address] [place] [address], [place] [address] Aug, [facility] [address] [id number] [address] [place] [address], [place] [address] Aug, [facility] [address] [id number] [address] [place] [address], [place] [address] Aug, [facility] [address] [id number] [address] [place] [address], [place] [address] Aug, [facility] [address] [id number] [address] [place] [address], [place] [address] Aug, [facility] [address] [id number] [address] [place] [address], [place] [address] Aug, [facility] [address] [id number] [address] [place] [address], [place] [address] Aug, [facility] [address] [id number] [address] [place] [address], [place] [address] Jul, [facility] [address] [id number] [address] [place] [address], [place] [address] Jul, [facility] [address] [id number] [address] [place] [address], [place] [address] Jul, [facility] [address] [id number] [address] [place] [address], [place] [address] Jul, [facility] [address] [id number] [address] [place] [address], [place] [address] Jul, [facility] [address] [id number] [address] [place] [address], [place] [address] Jul, [facility] [address] [id number] [address] [place] [address], [place] [address] Jun, [facility] [address] [id number] [address] [place] [address], [place] [address] Jun, [facility] [address] [id number] [address] [place] [address], [place] [address] Jun, [facility] [address] [id number] [address] [place] [address], [place] [address] Jun, [facility] [address] [id number] [address] [place] [address], [place] [address] May, [facility] [address] [id number] [address] [place] [address], [place] [address] May, [facility] [address] [id number] [address] [place] [address], [place] [address] May, [facility] [address] [id number] [address] [place] [address], [place] [address] May, [facility] [address] [id number] [address] [place] [address], [place] [address] May, [facility] [address] [id number] [address] [place] [address], [place] [address] May, [facility] [address] [id number] [address] [place] [address], [place] [address] May, [facility] [address] [id number] [address] [place] [address], [place] [address] May, [facility] [address] [id number] [address] [place] [address], [place] [address] May, [facility] [address] [id number] [address] [place] [address], [place] [address] May, [facility] [address] [id number] [address] [place] [address], [place] [address] Apr, [facility] [address] [id number] [address] [place] [address], [place] [address] Apr, [facility] [address] [id number] [address] [place] [address], [place] [address] Apr, [facility] [address] [id number] [address] [place] [address], [place] [address] Apr, [facility] [address] [id number] [address] [place] [address], [place] [address] Apr, [facility] [address] [id number] [address] [place] [address], [place] [address] Apr, [facility] [address] [id number] [address] [place] [address], [place] [address] Apr, [facility] [address] [id number] [address] [place] [address], [place] [address] Apr, [facility] [address] [id number] [address] [place] [address], [place] [address] Apr, [facility] [address] [id number] [address] [place] [address], [place] [address] Mar, [facility] [address] [id number] [address] [place] [address], [place] [address] Mar, [facility] [address] [id number] [address] [place] [address], [place] [id number] Mar, [facility] [address] [id number] [address] [place] [address], [place] [id number] Mar, [facility] [address] [id number] [address] [place] [address], [place] [id number] Mar, [facility] [address] [id number] [address] [place] [address], [place] [id number] Mar, [facility] [address] [id number] [address] [place] [address], [place] [id number] Mar, [facility] [address] [id number] [address] [place] [address], [place] [id number] Mar, [facility] [address] [id number] [address] [place] [address], [place] [id number] 30 Feb, 2014 [facility] [address] [id number] [address] [place] [address], [place] [id number] 30 Feb, 2013 [facility] [address] [id number] [address] [place] [address], [place] [id number] 24 Feb, 2013 [facility] [address] [id number] [address] [place] [address], [place] [id number] 24 Feb, 2013 [facility] [address] [id number] [address] [place] [address], [place] [id number] 22 Feb, 2013 [facility] [address] [id number] [address] [place] [address], [place] [id number] 22 Feb, 2013 [facility] [address] [id number] [address] [place] [address], [place] [id number] 10 Feb, 2013 [facility] [address] [id number] [address] [place] [address], [place] [id number] 10 Feb, 2013 [facility] [address] [id number] [address] [place] [address], [place] [id number] 03 Feb, 2013 [facility] [address] [id number] [address] [place] [address], [place] [id number] 03 Feb, 2013 [facility] [address] [id number] [address] [place] [id number] Feb, 2013 [facility] [address] [id number] [facility] [place] [id number] Feb, 2013 [facility] [address] [id number] [address] [place] [address], [place] [id number] Feb, [facility] [address] [id number] [address] [place] [address], [place] [id number] Feb, [facility] [address] [id number] [address] [place] [address], [place] [id number] Jan, [facility] [address] [id number] [address] [place] [address], [place] [id number] Jan, [facility] [address] [id number] [address] [place] [address], [place] [id number] Dec, [facility] [address] [id number] [address] [place] [address], [place] [id number] Dec, [facility] [address] [id number] [address] [place] [address], [place] [id number] Dec, [facility] [address] [id number] [address] [place] [address], [place] [id number] Dec, [facility] [address] [id number] [place] [address], [place] [id number] Dec, [facility] [address] [id number] [address] [place] [address], [place] [address] Dec, [facility] [address] [id number] [address] [place] [address], [place] [address] Dec, [facility] [address] [id number] [address] [place] [address], [place] [address] Dec, [facility] [address] [id number] [address] [place] [address], [place] [address] Dec, [facility] [address] [id number] [address] [place] [address], [place] [address] Dec, [facility] [address] [id number] [facility] [place] [address] 14 Dec, 2013 [facility] [address] [id number] [facility] [place] [address] Dec, 2013 [facility] [address] [id number] [address] [place] [address], [place] [address] Dec, 2013 [facility] [address] [id number] [address] [place] [address], [place] [address] Dec, 2013 [facility] [address] [id number] [address] [place] [address], [place] [address] Dec, 2013 [facility] [address] [id number] [address] [place] [address], [place] [address] Dec, 2013 [facility] [address] [id number] [address] [place] [address], [place] [address] Dec, 2013 [facility] [address] [id number] [address] [place] [address], [place] [address] Dec, [facility] [address] [id number] [address] [place] [address], [place] [address] Dec, [facility] [address] [id number] [address] [place] [address], [place] [address] Nov, [facility] [address] [id number] [address] [place] [address], [place] [address] Nov, [facility] [address] [id number] [address] [place] [address], [place] [address] Nov, [facility] [address] [id number] [address] [place] [address], [place] [address] Nov, [facility] [address] [id number] [address] [place] [address], [place] [address] Nov, [facility] [address] [id number] [address] [place] [address], [place] [address] Nov, [facility] [address] [id number] [address] [place] [address], [place] [address] Nov, [facility] [address] [id number] [facility] [place] [address] Nov, [facility] [address] [id number] [facility] [place] [address] Nov, [facility] [address] [id number] [address] [place] [address], [place] [address] October, [facility] [address] [id number] [address] [place] [address], [place] [address] October, [facility] [address] [id number] [address] [place] [address], [place] [address] October, [facility] [address] [id number] [address] [place] [address], [place] [address] October, [facility] [address] [id number] [address] [place] [address], [place] [address] October, [facility] [address] [id number] [address] [place] [address], [place] [address] October, [facility] [address] [id number] [address] [place] [address], [place] [address] October, [facility] [address] [id number] [address] [place] [address], [place] [address] October, [facility] [address] [id number] [address] [place] [address], [place] [address] Sep, [facility] [address] [id number] [address] [place] [address], [place] [address] Sep, [facility] [address] [id number] [address] [place] [address], [place] [address] Sep, [facility] [address] [id number] [address] [place] [address], [place] [address] Sep, [facility] [address] [id number] [address] [place] [address], [place] [address] Sep, [facility] [address] [id number] [address] [place] [address], [place] [address] Sep, [facility] [address] [id number] [address] [place] [address], [place] [address] Sep, [facility] [address] [id number] [address] [place] [address], [place] [address] Aug, [facility] [address] [id number] [address] [place] [address], [place] [address] Aug, [facility] [address] [id number] [address] [place] [address], [place] [address] Aug, [facility] [address] [id number] [address] [place] [address], [place] [address] Aug, [facility] [address] [id number] [address] [place] [address], [place] [address] Aug, [facility] [address] [id number] [address] [place] [address], [place] [address] Aug, [facility] [address] [id number] [address] [place] [address], [place] [address] Jul, [facility] [address] [id number] [address] [place] [address], [place] [address] Jul, [facility] [address] [id number] [address] [place] [address], [place] [address] Jul, [facility] [address] [id number] [address] [place] [address], [place] [address] Jul, [facility] [address] [id number] [address] [place] [address], [place] [address] Jul, [facility] [address] [id number] [address] [place] [address], [place] [address] Jul, [facility] [address] [id number] [address] [place] [address], [place] [address] Jun, [facility] [address] [id number] [address] [place] [address], [place] [address] Jun, [facility] [address] [id number] [address] [place] [address], [place] [address] Jun, [facility] [address] [id number] [address] [place] [address], [place] [address] Jun, [facility] [address] [id number] [address] [place] [address], [place] [address] Jun, [facility] [address] [id number] [address] [place] [address], [place] [address] Jun, [facility] [address] [id number] [address] [place] [address], [place] [address] Jun, [facility] [address] [id number] [address] [place] [address], [place] [address] Jun, [facility] [address] [id number] [address] [place] [address], [place] [address] Jun, [facility] [address] [id number] [address] [place] [address], [place] [address] Jun, [facility] [address] [id number] [address] [place] [address], [place] [address] Jun, [facility] [address] [id number] [address] [place] [address], [place] [address] Jun, [facility] [address] [id number] [address] [place] [address], [place] [address] Jun, [facility] [address] [id number] [address] [place] [address], [place] [address] May, [facility] [address] [id number] [address] [place] [address], [place] [address] May, [facility] [address] [id number] [address] [place] [address], [place] [address] May, [facility] [address] [id number] [address] [place] [address], [place] [address] May, [facility] [address] [id number] [address] [place] [address], [place] [address] 26 May, 2013 [facility] [address] [id number] [address] [place] [address], [place] [address] 14 May, 2013 [facility] [address] [id number] [address] [place] [address], [place] [address] 14 May, 2013 [facility] [address] [id number] [address] [place] [address], [place] [address] 12 May, 2013 [facility] [address] [id number] [address] [place] [address], [place] [address] 12 May, 2013 [facility] [address] [id number] [address] [place] [address], [place] [address] May, [facility] [address] [id number] [address] [place] [address], [place] [address] May, [facility] [address] [id number] [address] [place] [address], [place] [address] 10 May, 2013 [facility] [place] [address] [id number] [address] [place] [address], [place] [address] 10 May, 2013 [facility] [place] [address] [id number] [address] [place] [address], [place] [address] 09 May, 2013 [facility] [address] [id number] [address] [place] [address], [place] [address] 09 May, 2013 [facility] [address] [id number] [address] [place] [address], [place] [address] 08 May, 2013 [facility] [address] [id number] [address] [place] [address], [place] [address] 07 May, 2013 [facility] [address] [id number] [address] [place] [address], [place] [address] 06 May, 2013 [facility] [address] [id number] [address] [place] [address], [place] [address] 06 May, 2013 [facility] [address] [id number] [address] [place] [address], [place] [address] 06 May, 2013 [facility] [address] [id number] [address] [place] [address], [place] [address] May, [facility] [address] [id number] [address] [place] [address], [place] [address] Apr, [facility] [address] [id number] [address] [place] [address], [place] [address] Apr, [facility] [address] [id number] [address] [place] [address], [place] [address] Apr, [facility] [address] [id number] [address] [place] [address], [place] [address] Apr, [facility] [address] [id number] [address] [place] [address], [place] [address] Mar, [facility] [address] [id number] [address] [place] [address], [place] [address] 23 Feb, 2013 [facility] [address] [id number] [address] [place] [address], [place] [address] 16 Feb, 2013 [facility] [address] [id number] [address] [place] [address], [place] [address] 13 Feb, 2013 [facility] [address] [id number] [address] [place] [address], [place] [address] 10 Feb, 2013 [facility] [address] [id number] [address] [place] [address], [place] [address] Feb, [facility] [address] [id number] [address] [place] [address], [place] [address] Feb, [facility] [address] [id number] [address] [place] [address], [place] [address] Jan, [facility] [address] [id number] [address] [place] [address], [place] [address] Jan, [facility] [address] [id number] [address] [place] [address], [place] [address] Jan, [facility] [address] [id number] [address] [place] [address], [place] [address] 17 Dec, 2012 [facility] [address] [id number] [facility] [place] [address] 17 Dec, 2012 [facility] [address] [id number] [address] [place] [address], [place] [address] 17 Dec, 2012 [facility] [address] [id number] [address] [place] [address], [place] [address] 15 Dec, 2012 [facility] [address] [id number] [address] [place] [address], [place] [address] Dec, [facility] [address] [id number] [address] [place] [address], [place] [address] Nov, [facility] [address] [id number] [address] [place] [address], [place] [address] Nov, [facility] [address] [id number] [address] [place] [address], [place] [address] Nov, [facility] [address] [id number] [address] [place] [address], [place] [address] Nov, [facility] [address] [id number] [address] [place] [address], [place] [address] Nov, [facility] [address] [id number] [address] [place] [address], [place] [address] 08 Nov, 2012 [facility] [address] [id number] [address] [place] [address], [place] [address] 07 Nov, 2012 [facility] [address] [id number] [address] [place] [address], [place] [address] 06 Nov, 2012 [facility] [address] [id number] [address] [place] [address], [place] [address] 05 Nov, 2012 [facility] [address] [id number] [address] [place] [address], [place] [address] 04 Nov, 2012 [facility] [address] [id number] [address] [place] [address], [place] [address] October, [facility] [address] [id number] [address] [place] [address], [place] [address] October, [facility] [address] [id number] [address] [place] [address], [place] [address] Sep, [facility] [address] [id number] [address] [place] [address], [place] [address] Sep, [facility] [address] [id number] [address] [place] [address], [place] [address] Sep, [facility] [address] [id number] [address] [place] [address], [place] [address] Sep, [facility] [address] [id number] [address] [place] [address], [place] [address] Sep, [facility] [address] [id number] [address] [place] [address], [place] [address] Aug, [facility] [address] [id number] [address] [place] [address], [place] [address] Aug, [facility] [address] [id number] [address] [place] [address], [place] [address] Jul, [facility] [address] [id number] [address] [place] [address], [place] [address] Jul, [facility] [address] [id number] [address] [place] [address], [place] [address] Jun, [facility] [address] [id number] [address] [place] [address], [place] [address] Jun, [facility] [address] [id number] [address] [place] [address], [place] [address] May, [facility] [place] [address] [id number] [address] [place] [address], [place] [address] May, [facility] [address] [id number] [address] [place] [address], [place] [address] May, [facility] [address] [id number] [address] [place] [address], [place] [address] May, [facility] [address] [id number] [address] [place] [address], [place] [address] Apr, [facility] [address] [id number] [address] [place] [address], [place] [address] Apr, [facility] [address] [id number] [address] [place] [address], [place] [address] Apr, [facility] [address] [id number] [address] [place] [address], [place] [address] Apr, [facility] [address] [id number] [address] [place] [address], [place] [address] Apr, [facility] [address] [id number] [address] [place] [address], [place] [address] Apr, [facility] [address] [id number] [address] [place] [address], [place] [address] Apr, [facility] [address] [id number] [address] [place] [id number] Apr, [facility] [address] [id number] [address] [place] [address], [place] [address] Apr, [facility] [address] [id number] [address] [place] [id number] Mar, [facility] [address] [id number] [address] [place] [id number] Mar, [facility] [address] [id number] [address] [place] [id number] Feb, [facility] [address] [id number] [address] [place] [address], [place] [address] Jan, [facility] [address] [id number] [address] [place] [id number] Jan, [facility] [address] [id number] [address] [place] [id number] Dec, [facility] [address] [id number] [address] [place] [id number] Nov, [facility] [address] [id number] [address] [place] [address], [place] [address] Nov, [facility] [address] [id number] [address] [place] [address], [place] [id number] October, [facility] [address] [id number] [address] [place] [address], [place] [address] October, [facility] [address] [id number] [address] [place] [address], [place] [id number] Sep, [facility] [address] [id number] [address] [place] [address], [place] [id number] Sep, [facility] [address] [id number] [address] [place] [address], [place] [id number] May, [facility] [address] [id number] [address] [place] [id number] Apr, [facility] [address] [id number] [address] [place] [address], [place] [address] Apr, [facility] [address] [id number] [address] [place] [address], [place] [id number] Apr, [facility] [address] [id number] [address] [place] [id number] Apr, [facility] [address] [id number] [address] [place] [address], [place] [address] Apr, [facility] [address] [id number] [address] [place] [id number] Apr, [facility] [address] [id number] [address] [place] [address], [place] [address] Apr, [facility] [address] [id number] [address] [place] [address], [place] [id number] Apr, [facility] [address] [id number] [address] [place] [address], [place] [id number] Mar, [facility] [address] [facility] [id number] [address] [place] [id number] Mar, [facility] [address] [facility] [id number] [address] [place] [id number] Mar, [facility] [address] [facility] [id number] [address] [place] [id number] Mar, [facility] [address] [facility] [id number] [address] [place] [id number] Mar, [facility] [address] [facility] [id number] [address] [place] [id number] Mar, IMMUNIZATIONS No Known Immunizations SOCIAL HISTORY [...] Hospitalization History Mental floor at [facility]
--- OUTSIDE RECORDS SUMMARY | 2019-12-24 20:10 | XMS REPORT | Continuity of Care Document ---
Demographics Preferred Language Unknown Marital Status Unknown Adventism Affiliation Unknown Race Unknown Ethnic Group Unknown Author Organization Unknown Address Unknown Phone Unavailable Allergies Active Description Code Type Severity Reaction Onset Reported/Identified Relationship to Patient Clinical Status Yes Penicillins [id number] Drug Aller gy Mild hives 01/28/2009 Yes Penicillins Drug Allergy N/A N/A 03/31/2010 Yes Penicillins Drug Allergy 03/31/2010 Yes antihistamine Drug Allergy 04/22/2011 Yes Depakote 500 mg tablet,delayed release ( DR/EC) Drug Allergy N/A N/A Yes Depakote 500 mg tablet,delayed release ( DR/EC) Drug Allergy 06/26 Medications There is no data. Problems Date Dx Coded Attending Type Code Diagnosis Diagnosed By 03/31/2010 SURESH ANDRADE APRN S 461.0 Acute Maxillary Sinusitis 03/31/2010 SURESH ANDRADE APRN S 461.0 Acute Maxillary Sinusitis 03/31/2010 CATIE ROGERS DO 461.0 Acute Maxillary Sinusitis 03/31/2010 SURESH ANDRADE APRN S 461.0 Acute Maxillary Sinusitis 03/31/2010 461.0 Acut e Maxillary Sinusitis 03/31/2010 461.0 Acut e Maxillary Sinusitis 03/31/2010 461.0 Acut e Maxillary Sinusitis 03/31/2010 461.0 Acut e Maxillary Sinusitis 03/31/2010 JOSE ELIAS CORNELIUS APRN 461.0 Acute Maxillary Sinusitis 03/31/2010 MAINOR CONTRERAS APRN 46 1.0 Acute Maxillary Sinusitis 03/31/2010 SURESH ANDRADE APRN S 461.0 Acute Maxillary Sinusitis 03/31/2010 SURESH ANDRADE APRN S 461.0 Acute Maxillary Sinusitis 03/31/2010 ROWENA ANDRAED APRNA S 461.0 Acute Maxillary Sinusitis 03/31/2010 ROWENA ANDRADE APRNA S 461.0 Acute Maxillary Sinusitis 03/31/2010 SURESH ANDRADE APRN S 461.0 Acute Maxillary Sinusitis 03/31/2010 461.0 Acut e Maxillary Sinusitis 03/31/2010 OG BEE WORKER, MEGHA 461 .0 Acute Maxillary Sinusitis 03/31/2010 LUPE BEE WORKER, SURESH S 461.0 Acute Maxillary Sinusitis 03/31/2010 LUPE BEE WORKER, SURESH S 461.0 Acute Maxillary Sinusitis 03/31/2010 LUPE BEE WORKER, SURESH S 461.0 Acute Maxillary Sin[facility]/31/2010 [facility].0 Acute Maxillary Sinusitis 03/31/2010 LUPE BEE WORKER, SURESH S 461.0 Acute Maxillary Sinusitis 03/31/2010 LUPE BEE WORKER, SURESH S 461.0 Acute Maxillary Sinusitis 03/31/2010 MAURICE BEE WORKER, JAILENE R 461.0 Acute Maxillary Sinusitis 03/31/2010 PANCHO BEE WORKER, AIRAM A 46 1.0 Acute Maxillary Sinusitis 03/31/2010 [facility] 461.0 Acute Maxillary Sinusitis 03/31/2010 [facility] 461.0 Acute Maxillary Sinusitis 03/31/2010 PANCHO BEE WORKER, AIRAM A 46 1.0 Acute Maxillary Sinusitis 04/01/2011 LUPE BEE WORKER, SURESH S 401.1 BENIGN ESSENTIAL HYPERTENSION 04/01/2011 LUPE BEE WORKER, SURESH S 455.6 HEMORRHOIDS NOS 04/01/2011 LUPE BEE WORKER, SURESH S 553.9 HERNIA UNSPECIFIED SITE 04/01/2011 LUPE BEE WORKER, SURESH S 564.1 IRRITABLE BOWEL SYNDROME 04/01/2011 LUPE BEE WORKER, SURESH S V04.81 FLU DX (3 YRS AND ABOVE, IM) 04/01/2011 LUPE BEE WORKER, SURESH S 401.1 BENIGN ESSENTIAL HYPERTENSION 04/01/2011 LUPE BEE WORKER, SURESH S 455.6 HEMORRHOIDS NOS 04/01/2011 LUPE BEE WORKER, SURESH S 553.9 HERNIA UNSPECIFIED SITE 04/01/2011 LUPE BEE WORKER, SURESH S 564.1 IRRITABLE BOWEL SYNDROME 04/01/2011 LUPE BEE WORKER, SURESH S V04.81 FLU DX (3 YRS AND ABOVE, IM) 04/01/2011 ROGERS DO, CATIE K 401.1 BENIGN ESSENTIAL HYPERTENSION 04/01/2011 ROGERS DO, CATIE K 455.6 HEMORRHOIDS NOS 04/01/2011 SUE FERNANDO, CATIE K 553.9 HERNIA UNSPECIFIED SITE 04/01/2011 ROGERS , CATIE K 564.1 IRRITABLE BOWEL SYNDROME 04/01/2011 SUE FERNANDO, CATIE K V04.81 FLU DX (3 YRS AND ABOVE, IM) 04/01/2011 LUPE BEE WORKER, SURESH S 401.1 BENIGN ESSENTIAL HYPERTENSION 04/01/2011 LUPE BEE WORKER, SURESH S 455.6 HEMORRHOIDS NOS 04/01/2011 LUPE BEE WORKER, SURESH S 553.9 HERNIA UNSPECIFIED SITE 04/01/2011 LUPE BEE WORKER, SURESH S 564.1 IRRITABLE BOWEL SYNDROME 04/01/2011 LUPE BEE WORKER, SURESH S V04.81 FLU DX (3 YRS AND ABOVE, IM) 04/01/2011 401.1 MANASA GN ESSENTIAL HYPERTENSION 04/01/2011 455.6 HEMO RRHOIDS NOS 04/01/2011 553.9 MOMO IA UNSPECIFIED SITE 04/01/2011 564.1 IRRI TABLE BOWEL SYNDROME 04/01/2011 V04.81 FLU DX (3 YRS AND ABOVE, IM) 04/01/2011 401.1 MANASA GN ESSENTIAL HYPERTENSION 04/01/2011 455.6 HEMO RRHOIDS NOS 04/01/2011 553.9 MOMO IA UNSPECIFIED SITE 04/01/2011 564.1 IRRI TABLE BOWEL SYNDROME 04/01/2011 V04.81 FLU DX (3 YRS AND ABOVE, IM) 04/01/2011 401.1 MANASA GN ESSENTIAL HYPERTENSION 04/01/2011 455.6 HEMO RRHOIDS NOS 04/01/2011 553.9 MOMO IA UNSPECIFIED SITE 04/01/2011 564.1 IRRI TABLE BOWEL SYNDROME 04/01/2011 V04.81 FLU DX (3 YRS AND ABOVE, IM) 04/01/2011 401.1 MANASA GN ESSENTIAL HYPERTENSION 04/01/2011 455.6 HEMO RRHOIDS NOS 04/01/2011 553.9 MOMO IA UNSPECIFIED SITE 04/01/2011 564.1 IRRI TABLE BOWEL SYNDROME 04/01/2011 V04.81 FLU DX (3 YRS AND ABOVE, IM) 04/01/2011 JOSE ELIAS CORNELIUS APRN 401.1 BENIGN ESSENTIAL HYPERTENSION 04/01/2011 JOSE ELIAS CORNELIUS APRN 455.6 HEMORRHOIDS NOS 04/01/2011 JOSE ELIAS CORNELIUS APRN 553.9 HERNIA UNSPECIFIED SITE 04/01/2011 JOSE ELIAS CORNELIUS APRN 564.1 IRRITABLE BOWEL SYNDROME 04/01/2011 JOSE ELIAS CORNELIUS APRN V04.81 FLU DX (3 YRS AND ABOVE, IM) 04/01/2011 MAINOR CONTRERAS APRN T 40 1.1 BENIGN ESSENTIAL HYPERTENSION 04/01/2011 MAINOR CONTRERAS APRN T 45 5.6 HEMORRHOIDS NOS 04/01/2011 MAINOR CONTRERAS APRN T 55 3.9 HERNIA UNSPECIFIED SITE 04/01/2011 MAINOR CONTRERAS APRN T 56 4.1 IRRITABLE BOWEL SYNDROME 04/01/2011 MAINOR CONTRERAS APRN V04.81 FLU DX (3 YRS AND [...] S 401.1 BENIGN ESSENTIAL HYPERTENSION 04/01/2011 LUPE BEE WORKER, SURESH S 455.6 HEMORRHOIDS NOS 04/01/2011 LUPE BEE WORKER, SURESH S 553.9 HERNIA UNSPECIFIED SITE 04/01/2011 LUPE BEE WORKER, SURESH S 564.1 IRRITABLE BOWEL SYNDROME 04/01/2011 LUPE BEE WORKER, SURESH S V04.81 FLU DX (3 YRS AND ABOVE, IM) 04/01/2011 LUPE BROWN SURESH S 401.1 BENIGN ESSENTIAL HYPERTENSION 04/01/2011 LUPE BROWN SURESH S 455.6 HEMORRHOIDS NOS 04/01/2011 LUPE BEE WORKER, SURESH S 553.9 HERNIA UNSPECIFIED SITE 04/01/2011 LUPE BEE WORKERMATT HollingsworthNDA S 564.1 IRRITABLE BOWEL SYNDROME 04/01/2011 LUPE BEE WORKERORWENA HollingsworthA S V04.81 FLU DX (3 YRS AND ABOVE, IM) 04/01/2011 SURESH ANDRADE APRN S 401.1 BENIGN ESSENTIAL HYPERTENSION 04/01/2011 ROWENA ANDRADE APRNA S 455.6 HEMORRHOIDS NOS 04/01/2011 LUPE BEE WORKERROWENA HollingsworthA S 553.9 HERNIA UNSPECIFIED SITE 04/01/2011 LUPE BEE WORKERROWENA HollingsworthA S 564.1 IRRITABLE BOWEL SYNDROME 04/01/2011 LUPE BEE WORKERSURESH Hollingsworth S V04.81 FLU DX (3 YRS AND ABOVE, IM) 04/01/2011 SURESH ANDRADE APRN S 401.1 BENIGN ESSENTIAL HYPERTENSION 04/01/2011 LUPE BEE WORKERSURESH Hollingsworth S 455.6 HEMORRHOIDS NOS 04/01/2011 LUPE BEE WORKERSURESH Hollingsworth S 553.9 HERNIA UNSPECIFIED SITE 04/01/2011 LUPE BEE WORKERROWENA HollingsworthA S 564.1 IRRITABLE BOWEL SYNDROME 04/01/2011 LUPE BEE WORKERROWENA HollingsworthA S V04.81 FLU DX (3 YRS AND ABOVE, IM) 04/01/2011 401.1 MANASA GN ESSENTIAL HYPERTENSION 04/01/2011 455.6 HEMO RRHOIDS NOS 04/01/2011 553.9 MOMO IA UNSPECIFIED SITE 04/01/2011 564.1 IRRI TABLE BOWEL SYNDROME 04/01/2011 V04.81 FLU DX (3 YRS AND ABOVE, IM) 04/01/2011 OG BROWN MEGHA 401 .1 BENIGN ESSENTIAL HYPERTENSION 04/01/2011 OG BROWN MEGHA 455 .6 HEMORRHOIDS NOS 04/01/2011 OG BEE WORKER, MEGHA 553 .9 HERNIA UNSPECIFIED SITE 04/01/2011 OG BEE WORKER, MEGHA 564 .1 IRRITABLE BOWEL SYNDROME 04/01/2011 OG BROWN MEGHA V04 .81 FLU DX (3 YRS AND ABOVE, IM) 04/01/2011 LUPE BEE WORKER, SURESH S 401.1 BENIGN ESSENTIAL HYPERTENSION 04/01/2011 LUPE BEE WORKER, SURESH S 455.6 HEMORRHOIDS NOS 04/01/2011 LUPE BEE WORKER, SURESH S 553.9 HERNIA UNSPECIFIED SITE 04/01/2011 LUPE BEE WORKER, SURESH S 564.1 IRRITABLE BOWEL SYNDROME 04/01/2011 LUPE BEE WORKERMATT HollingsworthNDA S V04.81 FLU DX (3 YRS AND ABOVE, IM) 04/01/2011 LUPE BEE WORKER, SURESH S 401.1 BENIGN ESSENTIAL HYPERTENSION 04/01/2011 LUPE BEE WORKER, SURESH S 455.6 HEMORRHOIDS NOS 04/01/2011 LUPE BEE WORKERMATT HollingsworthNDA S 553.9 HERNIA UNSPECIFIED SITE 04/01/2011 LUPE BEE WORKERMATT HollingsworthNDA S 564.1 IRRITABLE BOWEL SYNDROME 04/01/2011 ROWENA ANDRADE APRNA S V04.81 FLU DX (3 YRS AND ABOVE, IM) 04/01/2011 LUPE BEE WORKERMATT HollingsworthNDA S 401.1 BENIGN ESSENTIAL HYPERTENSION 04/01/2011 LUPE BEE WORKER, SURESH S 455.6 HEMORRHOIDS NOS 04/01/2011 LUPE BEE WORKER, SURESH S 553.9 HERNIA UNSPECIFIED SITE 04/01/2011 LUPE BEE WORKER, SURESH S 564.1 IRRITABLE BOWEL SYNDROME 04/01/2011 LUPE BEE WORKER, SURESH S V04.81 FLU DX (3 YRS AND ABOVE, IM) 04/01/2011 [facility], SYBIL R 401.1 BENIGN ESSENTIAL HYPERTENSION [...] SURESH S 455.6 HEMORRHOIDS NOS 04/01/2011 LUPE BEE WORKER, SURESH S 553.9 HERNIA UNSPECIFIED SITE 04/01/2011 LUPE BEE WORKER, SURESH S 564.1 IRRITABLE BOWEL SYNDROME 04/01/2011 LUPE BEE WORKER, SURESH S V04.81 FLU DX (3 YRS AND ABOVE, IM) 04/01/2011 LUPE BEE WORKER, SURESH S 401.1 BENIGN ESSENTIAL HYPERTENSION 04/01/2011 LUPE BEE WORKER, SURESH S 455.6 HEMORRHOIDS NOS 04/01/2011 LUPE BEE WORKER, SURESH S 553.9 HERNIA UNSPECIFIED SITE 04/01/2011 LUPE BEE WORKER, SRUESH S 564.1 IRRITABLE BOWEL SYNDROME 04/01/2011 LUPE BEE WORKER, SURESH S V04.81 FLU DX (3 YRS AND ABOVE, IM) 04/01/2011 MAURICE BEE WORKER, JAILENE R 401.1 BENIGN ESSENTIAL HYPERTENSION 04/01/2011 MAURICE BEE WORKER, JAILENE R 455.6 HEMORRHOIDS NOS 04/01/2011 MAURICE BEE WORKER, JAILENE R 553.9 HERNIA UNSPECIFIED SITE 04/01/2011 MAURICE BEE WORKER, JAILENE R 564.1 IRRITABLE BOWEL SYNDROME 04/01/2011 MAURICE BEE WORKER, JAILENE R V04.81 FLU DX (3 YRS AND ABOVE, IM) 04/01/2011 PANCHO BEE WORKER, AIRAM A 40 1.1 BENIGN ESSENTIAL HYPERTENSION 04/01/2011 PANCOH BEE WORKER, AIRAM A 45 5.6 HEMORRHOIDS NOS 04/01/2011 PANCHO BEE WORKER, AIRAM A 55 3.9 HERNIA UNSPECIFIED SITE 04/01/2011 PANCHO BEE WORKER, AIRAM A 56 4.1 IRRITABLE BOWEL SYNDROME 04/01/2011 PANCHO BEE WORKER, AIRAM A V04.81 FLU DX (3 YRS [...] (3 YRS AND ABOVE, IM) 04/01/2011 PANCHO BEE WORKER, AIRAM A 40 1.1 BENIGN ESSENTIAL HYPERTENSION 04/01/2011 PANCHO BEE WORKER, AIRAM A 45 5.6 HEMORRHOIDS NOS 04/01/2011 PANCHO BEE WORKER, AIRAM A 55 3.9 HERNIA UNSPECIFIED SITE 04/01/2011 PANCHO BEE WORKER, AIRAM A 56 4.1 IRRITABLE BOWEL SYNDROME 04/01/2011 PANCHO BEE WORKER, AIRAM A V04.81 FLU DX (3 YRS AND ABOVE, IM) 04/22/2011 SURESH ANDRADE APRN S 789.00 Abdominal Pain Unspecified Site 04/22/2011 ROWENA ANDRADE APRNA S 789.00 Abdominal Pain Unspecified Site 04/22/2011 CATIE ROGERS DO 789.00 Abdominal Pain Unspecified Site 04/22/2011 SURESH ANDRADE APRN S 789.00 Abdominal Pain Unspecified Site 04/22/2011 789.00 Abd ominal Pain Unspecified Site 04/22/2011 789.00 Abd ominal Pain Unspecified Site 04/22/2011 789.00 Abd ominal Pain Unspecified Site 04/22/2011 789.00 Abd ominal Pain Unspecified Site 04/22/2011 JOSE ELIAS CORNELIUS APRN 789.00 Abdominal Pain Unspecified Site 04/22/2011 MAINOR CONTRERAS APRN 789.00 Abdominal Pain Unspecified Site 04/22/2011 SURESH ANDRADE APRN S 789.00 Abdominal Pain Unspecified Site 04/22/2011 SURESH ANDRADE APRN S 789.00 Abdominal Pain Unspecified Site 04/22/2011 ROWENA ANDRADE APRNA S 789.00 Abdominal Pain Unspecified Site 04/22/2011 LUPE BEE WORKER, SURESH S 789.00 Abdominal Pain Unspecified Site 04/22/2011 LUPE BEE WORKER, USRESH S 789.00 Abdominal Pain Unspecified Site 04/22/2011 789.00 Abd ominal Pain Unspecified Site 04/22/2011 MEGHA FOLEY APRN 789 .00 Abdominal Pain Unspecified Site 04/22/2011 LUPE BEE WORKER, SURESH S 789.00 Abdominal Pain Unspecified Site 04/22/2011 LUPE BEE WORKER, SURESH S 789.00 Abdominal Pain Unspecified Site 04/22/2011 LUPE BEE WORKER, SURESH S 789.00 Abdominal Pain Unspecified Site 04/22/2011 [facility], SYBIL R 789.00 Abdominal Pain Unspecified Site 04/22/2011 LUPE BEE WORKER, SURESH S 789.00 Abdominal Pain Unspecified Site 04/22/2011 LUPE BEE WORKER, SURESH S 789.00 Abdominal Pain Unspecified Site 04/22/2011 MAURICE BROWN JAILENE R 789.00 Abdominal Pain Unspecified Site 04/22/2011 PANCHO BEE WORKER, AIRAM A 789.00 Abdominal Pain Unspecified Site 04/22/2011 [facility], SYBIL R 789.00 Abdominal Pain Unspecified Site 04/22/2011 [facility], SYBIL R 789.00 Abdominal Pain Unspecified Site 04/22/2011 PANCHO BEE WORKER, AIRAM A 789.00 Abdominal Pain Unspecified Site 2011 LUPE BEE WORKER, SURESH S 564.00 Constipation 2011 LUPE BEE WORKER, SURESH S 783.21 WEIGHT LOSS 2011 LUPE BEE WORKER, SURESH S 787.01 Nausea With Vomiting 2011 LUPE BEE WORKER, SURESH S 787.91 Diarrhea 2011 LUPE BEE WORKER, SURESH S 789.07 Abdominal Pain Generalized 2011 LUPE BEE WORKER, SURESH S 564.00 Constipation 2011 LUPE BEE WORKER, SURESH S 783.21 WEIGHT LOSS 2011 LUPE BEE WORKER, SURESH S 787.01 Nausea With Vomiting 2011 LUPE BROWN SURESH S 787.91 Diarrhea 2011 MATT ANDRADE APRNNDA S 789.07 Abdominal Pain Generalized 2011 ROGERS DO, CATIE K 564.00 Constipation 2011 ROGERS DO, CAITE K 783.21 WEIGHT LOSS 2011 ROGERS DO, CATIE K 787.01 Nausea With Vomiting 2011 ROGERS DO, CATIE K 787.91 Diarrhea 2011 ROGERS DO, CATIE K 789.07 Abdominal Pain Generalized 2011 MATT ANDRADE APRNNDA S 564.00 Constipation 2011 LUPE BROWN SURESH S 783.21 WEIGHT LOSS 2011 MATT ANDRADE APRNNDA S 787.01 Nausea With Vomiting 2011 MATT ANDRADE APRNNDA S 787.91 Diarrhea 2011 MATT ANDRADE APRNNDA S 789.07 Abdominal Pain Generalized 2011 564.00 Con stipation 2011 783.21 RITIKA GHT LOSS 2011 787.01 [place] With Vomiting 2011 787.91 Odilia rrhea 2011 789.07 Abd ominal Pain Generalized 2011 564.00 Con stipation 2011 783.21 RITIKA GHT LOSS 2011 787.01 [place] With Vomiting 2011 787.91 Odilia rrhea 2011 789.07 Abd ominal Pain Generalized 2011 564.00 Con stipation 2011 783.21 RITIKA GHT LOSS 2011 787.01 [place] With Vomiting 2011 787.91 Odilia rrhea 2011 789.07 Abd ominal Pain Generalized 2011 564.00 Con stipation 2011 783.21 RITIKA GHT LOSS 2011 787.01 [place] With Vomiting 2011 787.91 Odilia rrhea 2011 789.07 Abd ominal Pain Generalized 2011 JOSE ELIAS CORNELIUS APRN 564.00 Constipation 2011 ASHLI BROWN, JOSE ELIAS ELDER 783.21 WEIGHT LOSS 2011 ASHLI BROWN, JOSE ELIAS ELDER 787.01 Nausea With Vomiting 2011 ASHLI WOLFN, JOSE ELIAS LEDER 787.91 Diarrhea 2011 ASHLI WOLFN, JOSE ELIAS ELDER 789.07 Abdominal Pain Generalized 2011 BEN BEE WORKER, MAINOR T 564.00 Constipation 2011 BEN BEE WORKER, MAINOR T 783.21 WEIGHT LOSS 2011 BEN BEE WORKER, MAINOR T 787.01 Nausea With Vomiting 2011 BEN BEE WORKER, MAINOR T 787.91 Diarrhea 2011 BEN BEE WORKER, MAINOR T 789.07 Abdominal Pain Generalized 2011 LUPE BEE WORKER, SURESH S 564.00 Constipation 2011 LUPE BEE WORKER, SURESH S 783.21 WEIGHT LOSS 2011 LUPE BEE WORKER, SURESH S 787.01 Nausea With Vomiting 2011 LUPE BEE WORKER, SURESH S 787.91 Diarrhea 2011 LUPE BEE WORKER, SURESH S 789.07 Abdominal Pain Generalized 2011 LUPE BEE WORKER, SURESH S 564.00 Constipation 2011 LUPE BEE WORKER, SURESH S 783.21 WEIGHT LOSS 2011 LUPE BEE WORKER, SURESH S 787.01 Nausea With Vomiting 2011 LUPE BEE WORKER, SURESH S 787.91 Diarrhea 2011 LUPE BEE WORKER, SURESH S 789.07 Abdominal Pain Generalized 2011 LUPE BEE WORKER, SURESH S 564.00 Constipation 2011 LUPE BEE WORKER, SURESH S 783.21 WEIGHT LOSS 2011 LUPE BEE WORKER, SURESH S 787.01 Nausea With Vomiting 2011 LUPE BEE WORKER, SURESH S 787.91 Diarrhea 2011 LUPE BEE WORKER, SURESH S 789.07 Abdominal Pain Generalized 2011 LUPE BEE WORKER, SURESH S 564.00 Constipation 2011 LUPE BEE WORKER, SURESH S 783.21 WEIGHT LOSS 2011 LUPE BEE WORKER, SURESH S 787.01 Nausea With Vomiting 2011 LUPE BEE WORKER, SURESH S 787.91 Diarrhea 2011 LUPE BEE WORKER, SURESH S 789.07 Abdominal Pain Generalized 2011 LUPE BEE WORKER, SURESH S 564.00 Constipation 2011 LUPE BEE WORKER, SURESH S 783.21 WEIGHT LOSS 2011 LUPE BEE WORKER, SURESH S 787.01 Nausea With Vomiting 2011 LUPE BEE WORKER, SURESH S 787.91 Diarrhea 2011 LUPE BEE WORKER, SURESH S 789.07 Abdominal Pain Generalized 2011 564.00 Con stipation 2011 783.21 RITIKA GHT LOSS 2011 787.01 [place] With Vomiting 2011 787.91 Odilia rrhea 2011 789.07 Abd ominal Pain Generalized 2011 OG BEE WORKER, MEGHA 564 .00 Constipation 2011 OG BEE WORKER, MEGHA 783 .21 WEIGHT LOSS 2011 OG BEE WORKER, MEGHA 787 .01 Nausea With Vomiting 2011 OG BEE WORKER, MEGHA 787 .91 Diarrhea 2011 OG BEE WORKER, MEGHA 789 .07 Abdominal Pain Generalized 2011 LUPE WOLFN, SURESH S 564.00 Constipation 2011 LUPE BEE WORKER, SURESH S 783.21 WEIGHT LOSS 2011 LUPE BEE WORKER, SURESH S 787.01 Nausea With Vomiting 2011 LUPE BEE WORKER, SURESH S 787.91 Diarrhea 2011 LUPE BEE WORKER, SURESH S 789.07 Abdominal Pain Generalized 2011 LUPE BEE WORKER, SURESH S 564.00 Constipation 2011 LUPE BEE WORKER, SURESH S 783.21 WEIGHT LOSS 2011 LUPE BEE WORKER, SURESH S 787.01 Nausea With Vomiting 2011 LUPE BEE WORKER, SURESH S 787.91 Diarrhea 2011 LUPE BEE WORKER, SURESH S 789.07 Abdominal Pain Generalized 2011 LUPE BEE WORKER, SURESH S 564.00 Constipation 2011 LUPE BEE WORKER, SURESH S 783.21 WEIGHT LOSS 2011 LUPE BEE WORKER, SURESH S 787.01 Nausea With Vomiting 2011 LUPE BEE WORKER, SURESH S 787.91 Diarrhea 2011 LUPE BEE WORKER, SURESH S 789.07 Abdominal Pain Generalized 2011 [facility], SYBIL R 564.00 Constipation 2011 [facility], SYBIL R 783.21 WEIGHT LOSS 2011 [facility], SYBIL R 787.01 Nausea With Vomiting 2011 [facility], SYBIL R 787.91 Diarrhea 2011 [facility], SYBIL R 789.07 Abdominal Pain Generalized 2011 LUPE BEE WORKER, SURESH S 564.00 Constipation 2011 LUPE BEE WORKER, SURESH S 783.21 WEIGHT LOSS 2011 LUPE BEE WORKER, SURESH S 787.01 Nausea With Vomiting 2011 LUPE BEE WORKER, SURESH S 787.91 Diarrhea 2011 LUPE BEE WORKER, SURESH S 789.07 Abdominal Pain Generalized 2011 LUPE BEE WORKER, SURESH S 564.00 Constipation 2011 LUPE BEE WORKER, SURESH S 783.21 WEIGHT LOSS 2011 LUPE BEE WORKER, SURESH S 787.01 Nausea With Vomiting 2011 LUPE BEE WORKER, SURESH S 787.91 Diarrhea 2011 LUPE BEE WORKER, SURESH S 789.07 Abdominal Pain Generalized 2011 MAURICE BEE WORKER, JAILENE R 564.00 Constipation 2011 MAURICE BEE WORKER, JAILENE R 783.21 WEIGHT LOSS 2011 MAURICE BEE WORKER, JAILENE R 787.01 Nausea With Vomiting 2011 MAURICE BEE WORKER, JAILENE R 787.91 Diarrhea 2011 MAURICE BEE WORKER, JAILENE R 789.07 Abdominal Pain Generalized 2011 PANCHO BEE WORKER, AIRAM A 564.00 Constipation 2011 PANCHO BEE WORKER, AIRAM A 783.21 WEIGHT LOSS 2011 PANCHO BEE WORKER, AIRAM A 787.01 Nausea With Vomiting 2011 PANCHO BEE WORKER, AIRAM A 787.91 Diarrhea 2011 PANCHO BEE WORKER, AIRAM A 789.07 Abdominal Pain Generalized 2011 [...] R 789.07 Abdominal Pain Generalized 2011 PANCHO BEE WORKER, AIRAM A 564.00 Constipation 2011 PANCHO BEE WORKER, AIRAM A 783.21 WEIGHT LOSS 2011 PANCHO BEE WORKER, AIRAM A 787.01 Nausea With Vomiting 2011 PANCHO BEE WORKER, AIRAM A 787.91 Diarrhea 2011 PANCHO BEE WORKER, AIRAM A 789.07 Abdominal Pain Generalized 10/04/2011 Ot 211.3 MANASA GN NEOPLASM LG BOWEL 10/04/2011 Ot 211.4 MANASA GN NEOPL RECTUM/ANUS 10/04/2011 Ot 272.4 HYPE RLIPIDEMIA NEC/NOS 10/04/2011 Ot 296.80 BIP OLAR DISORDER, UNSPECIFIED 10/04/2011 Ot 401.9 HYPE RTENSION NOS 10/04/2011 Ot 530.11 REF LUX ESOPHAGITIS 10/04/2011 Ot 531.90 STO MACH ULCER NOS 11/01/2011 LUPE BROWN SURESH S 211.3 BENIGN NEOPLASM OF COLON 11/01/2011 LUPE BROWN SURESH S 530.81 ESOPHAGEAL REFLUX 11/01/2011 MATT ANDRADE APRNNDA S 531.30 ACUTE GASTRIC ULCER WITHOUT HEMORRHAGE O R PERFORATION WITHOUT OBSTRUCTION 11/01/2011 LUPE BROWN SURESH S 535.50 Gastritis Unspec 11/01/2011 MATT ANDRADE APRNNDA S 211.3 BENIGN NEOPLASM OF COLON 11/01/2011 LUPE BROWN SURESH S 530.81 ESOPHAGEAL REFLUX 11/01/2011 LUPE BROWN SURESH S 531.30 ACUTE GASTRIC ULCER WITHOUT HEMORRHAGE O R PERFORATION WITHOUT OBSTRUCTION 11/01/2011 MATT ANDRADE APRNNDA S 535.50 Gastritis Unspec 11/01/2011 SUE FERNANDO CATIE K 211.3 BENIGN NEOPLASM OF COLON 11/01/2011 SUE FERNANDO CATIE K 530.81 ESOPHAGEAL REFLUX 11/01/2011 ROGERS , CATIE K 531.30 ACUTE GASTRIC ULCER WITHOUT HEMORRHAGE OR PERFORATION WITHOUT OBSTRUCTION 11/01/2011 SUE FERNANDO, CATIE K 535.50 Gastritis Unspec 11/01/2011 LUPE BROWN SURESH S 211.3 BENIGN NEOPLASM OF COLON 11/01/2011 MATT ANDRADE APRNNDA S 530.81 ESOPHAGEAL REFLUX 11/01/2011 MATT ANDRADE APRNNDA S 531.30 ACUTE GASTRIC ULCER WITHOUT HEMORRHAGE O R PERFORATION WITHOUT OBSTRUCTION 11/01/2011 LUPE BROWN SURESH S 535.50 Gastritis Unspec 11/01/2011 211.3 MANASA GN NEOPLASM OF COLON 11/01/2011 530.81 ESO PHAGEAL REFLUX 11/01/2011 531.30 ACU TE GASTRIC ULCER WITHOUT HEMORRHAGE OR PERFORATION WITHOUT OBSTRUCTION 11/01/2011 535.50 Gas tritis Unspec 11/01/2011 211.3 MANASA GN NEOPLASM OF COLON 11/01/2011 530.81 ESO PHAGEAL REFLUX 11/01/2011 531.30 ACU TE GASTRIC ULCER WITHOUT HEMORRHAGE OR PERFORATION WITHOUT OBSTRUCTION 11/01/2011 535.50 Gas tritis Unspec 11/01/2011 211.3 MANASA GN NEOPLASM OF COLON 11/01/2011 530.81 ESO PHAGEAL REFLUX 11/01/2011 531.30 ACU TE GASTRIC ULCER WITHOUT HEMORRHAGE OR PERFORATION WITHOUT OBSTRUCTION 11/01/2011 535.50 Gas tritis Unspec 11/01/2011 211.3 MANASA GN NEOPLASM OF COLON 11/01/2011 530.81 ESO PHAGEAL REFLUX 11/01/2011 531.30 ACU TE GASTRIC ULCER WITHOUT HEMORRHAGE OR PERFORATION WITHOUT OBSTRUCTION 11/01/2011 535.50 Gas tritis Unspec 11/01/2011 CORNELIUS STEPHANIE JOSE ELIAS ELDER 211.3 BENIGN NEOPLASM OF COLON 11/01/2011 CORNELIUS STEPHANIE JOSE ELIAS ELDER 530.81 ESOPHAGEAL REFLUX 11/01/2011 CORNELIUS STEPHANIE JOSE ELIAS ELDER 531.30 ACUTE GASTRIC ULCER WITHOUT HEMORRHAGE O R PERFORATION WITHOUT OBSTRUCTION 11/01/2011 ASHLI BROWN JOSE ELIAS ELDER 535.50 Gastritis Unspec 11/01/2011 MAINOR CONTRERAS APRN 21 1.3 BENIGN NEOPLASM OF COLON 11/01/2011 MAINOR CONTRERAS APRN 530.81 ESOPHAGEAL REFLUX 11/01/2011 MAINOR CONTRERAS APRN T 531.30 ACUTE GASTRIC ULCER WITHOUT HEMORRHAGE O R PERFORATION WITHOUT OBSTRUCTION 11/01/2011 MAINOR CONTRERAS APRN T 535.50 Gastritis Unspec 11/01/2011 MATT ANDRADE APRNNDA S 211.3 BENIGN NEOPLASM OF COLON 11/01/2011 MATT ANDRADE APRNNDA S 530.81 ESOPHAGEAL REFLUX 11/01/2011 LUPE BROWN SURESH S 531.30 ACUTE GASTRIC ULCER WITHOUT HEMORRHAGE O R PERFORATION WITHOUT OBSTRUCTION 11/01/2011 LUPE BROWN SURESH S 535.50 Gastritis Unspec 11/01/2011 LUPE BROWN, SURESH S 211.3 BENIGN NEOPLASM OF COLON 11/01/2011 LUPE BROWN SURESH S 530.81 ESOPHAGEAL REFLUX 11/01/2011 LUPE BROWN SURESH S 531.30 ACUTE GASTRIC ULCER WITHOUT HEMORRHAGE O R PERFORATION WITHOUT OBSTRUCTION 11/01/2011 LUPE BROWN SURESH S 535.50 Gastritis Unspec 11/01/2011 LUPE BROWN SURESH S 211.3 BENIGN NEOPLASM OF COLON 11/01/2011 LUPE BEE WORKER, SURESH S 530.81 ESOPHAGEAL REFLUX 11/01/2011 LUPE BEE WORKER, SURESH S 531.30 ACUTE GASTRIC ULCER WITHOUT HEMORRHAGE O R PERFORATION WITHOUT OBSTRUCTION 11/01/2011 LUPE BEE WORKER, SURESH S 535.50 Gastritis Unspec 11/01/2011 LUPE BEE WORKER, SURESH S 211.3 BENIGN NEOPLASM OF COLON 11/01/2011 LUPE BEE WORKER, SURESH S 530.81 ESOPHAGEAL REFLUX 11/01/2011 LUPE BEE WORKER, SURESH S 531.30 ACUTE GASTRIC ULCER WITHOUT HEMORRHAGE O R PERFORATION WITHOUT OBSTRUCTION 11/01/2011 LUPE BEE WORKER, SURESH S 535.50 Gastritis Unspec 11/01/2011 LUPE BEE WORKER, SURESH S 211.3 BENIGN NEOPLASM OF COLON 11/01/2011 LUPE BEE WORKER, SURESH S 530.81 ESOPHAGEAL REFLUX 11/01/2011 LUPE BEE WORKER, SURESH S 531.30 ACUTE GASTRIC ULCER WITHOUT HEMORRHAGE O R PERFORATION WITHOUT OBSTRUCTION 11/01/2011 LUPE BROWN, SURESH S 535.50 Gastritis Unspec 11/01/2011 211.3 MANASA GN NEOPLASM OF COLON 11/01/2011 530.81 ESO PHAGEAL REFLUX 11/01/2011 531.30 ACU TE GASTRIC ULCER WITHOUT HEMORRHAGE OR PERFORATION WITHOUT OBSTRUCTION 11/01/2011 535.50 Gas tritis Unspec 11/01/2011 BG FOLEY APRNETTE 211 .3 BENIGN NEOPLASM OF COLON 11/01/2011 OG BROWN MEGHA 530 .81 ESOPHAGEAL REFLUX 11/01/2011 OG BROWN MEGHA 531 .30 ACUTE GASTRIC ULCER WITHOUT HEMORRHAGE OR PERFORATION WITHOUT OBSTRUCTION 11/01/2011 OG BROWN MEGHA 535 .50 Gastritis Unspec 11/01/2011 LUPE BROWN, SURESH S 211.3 BENIGN NEOPLASM OF COLON 11/01/2011 LUPE BEE WORKER, SURESH S 530.81 ESOPHAGEAL REFLUX 11/01/2011 LUPE BEE WORKER, SURESH S 531.30 ACUTE GASTRIC ULCER WITHOUT HEMORRHAGE O R PERFORATION WITHOUT OBSTRUCTION 11/01/2011 LUPE BROWN, SURESH S 535.50 Gastritis Unspec 11/01/2011 LUPE BROWN, SURESH S 211.3 BENIGN NEOPLASM OF COLON 11/01/2011 LUPE BEE WORKER, SURESH S 530.81 ESOPHAGEAL REFLUX 11/01/2011 LUPE BEE WORKER, SURESH S 531.30 ACUTE GASTRIC ULCER WITHOUT HEMORRHAGE O R PERFORATION WITHOUT OBSTRUCTION 11/01/2011 LUPE BEE WORKER, SURESH S 535.50 Gastritis Unspec 11/01/2011 LUPE BEE WORKER, SURESH S 211.3 BENIGN NEOPLASM OF COLON 11/01/2011 LUPE BEE WORKER, SURESH S 530.81 ESOPHAGEAL REFLUX 11/01/2011 LUPE BEE WORKER, SURESH S 531.30 ACUTE GASTRIC ULCER WITHOUT HEMORRHAGE O R PERFORATION WITHOUT OBSTRUCTION 11/01/2011 LUPE BEE WORKER, SURESH S 535.50 Gastritis Unspec 11/01/2011 FELICITAS LSCS, SYBIL R 211.3 BENIGN NEOPLASM OF COLON 11/01/2011 FELICITAS LSCS, SYBIL R 530.81 ESOPHAGEAL REFLUX 11/01/2011 FELICITAS LSCS, SYBIL R 531.30 ACUTE GASTRIC ULCER WITHOUT HEMORRHAGE O R PERFORATION WITHOUT OBSTRUCTION 11/01/2011 FELICITAS LSCS, SYBIL R 535.50 Gastritis Unspec 11/01/2011 LUPE WOLFN, SURESH S 211.3 BENIGN NEOPLASM OF COLON 11/01/2011 LUPE BEE WORKER, SURESH S 530.81 ESOPHAGEAL REFLUX 11/01/2011 LUPE BEE WORKER, SURESH S 531.30 ACUTE GASTRIC ULCER WITHOUT HEMORRHAGE O R PERFORATION WITHOUT OBSTRUCTION 11/01/2011 LUPE WOLFN, SURESH S 535.50 Gastritis Unspec 11/01/2011 LUPE WOLFN, SURESH S 211.3 BENIGN NEOPLASM OF COLON 11/01/2011 LUPE WOLFN, SURESH S 530.81 ESOPHAGEAL REFLUX 11/01/2011 LUPE BEE WORKER, SURESH S 531.30 ACUTE GASTRIC ULCER WITHOUT HEMORRHAGE O R PERFORATION WITHOUT OBSTRUCTION 11/01/2011 LUPE BEE WORKER, SURESH S 535.50 Gastritis Unspec 11/01/2011 MAURICE WOLFN JAILENE R 211.3 BENIGN NEOPLASM OF COLON 11/01/2011 MAURICE BEE WORKER, JAILENE R 530.81 ESOPHAGEAL REFLUX 11/01/2011 MAURICE WOLFN, JAILENE R 531.30 ACUTE GASTRIC ULCER WITHOUT HEMORRHAGE O R PERFORATION WITHOUT OBSTRUCTION 11/01/2011 MAURICE WOLFN JAILENE R 535.50 Gastritis Unspec 11/01/2011 PANCHO BEE WORKER, AIRAM A 21 1.3 BENIGN NEOPLASM OF COLON 11/01/2011 PANCHO BEE WORKER, AIRAM A 530.81 ESOPHAGEAL REFLUX 11/01/2011 PANCHO BEE WORKER, AIRAM A 531.30 ACUTE GASTRIC ULCER WITHOUT HEMORRHAGE O R PERFORATION WITHOUT OBSTRUCTION 11/01/2011 PANCHO WOLFN, AIRAM A 535.50 Gastritis Unspec 11/01/2011 FELICITAS LSCS, SYBIL R 211.3 BENIGN NEOPLASM OF COLON 11/01/2011 FELICITAS LSCS, SYBIL R 530.81 ESOPHAGEAL REFLUX 11/01/2011 FELICITAS LSCS, SYBIL R 531.30 ACUTE GASTRIC ULCER WITHOUT HEMORRHAGE O R PERFORATION WITHOUT OBSTRUCTION 11/01/2011 FELICITAS LSCS, SYBIL R 535.50 Gastritis Unspec 11/01/2011 FELICITAS LSCS, SYBIL R 211.3 BENIGN NEOPLASM OF COLON 11/01/2011 FELICITAS LSCS, SYBIL R 530.81 ESOPHAGEAL REFLUX 11/01/2011 FELICITAS LSCS, SYBIL R 531.30 ACUTE GASTRIC ULCER WITHOUT HEMORRHAGE O R PERFORATION WITHOUT OBSTRUCTION 11/01/2011 FELICITAS LSCS, SYBIL R 535.50 Gastritis Unspec 11/01/2011 PANCHODYLAN WOLFN, AIRAM A 21 1.3 BENIGN NEOPLASM OF COLON 11/01/2011 PANCHO BEE WORKER, AIRAM A 530.81 ESOPHAGEAL REFLUX 11/01/2011 PANCHO WOLFN, AIRAM A 531.30 ACUTE GASTRIC ULCER WITHOUT HEMORRHAGE O R PERFORATION WITHOUT OBSTRUCTION 11/01/2011 PANCHO WOLFN, AIRAM A 535.50 Gastritis Unspec 04/24/2012 LUPE BROWN, SURESH S 625.9 UNSPECIFIED SYMPTOM ASSOCIATED WITH FEMALE GENITAL ORG ANS 04/24/2012 LUPE WOLFN, SURESH S 719.40 PAIN IN JOINT SITE UNSPECIFIED 04/24/2012 LUPE BEE WORKER, SURESH S 780.52 INSOMNIA UNSPECIFIED 04/24/2012 LUPE BEE WORKER, SURESH S 625.9 UNSPECIFIED SYMPTOM ASSOCIATED WITH FEMALE GENITAL ORG ANS 04/24/2012 LUPE BEE WORKER, SURESH S 719.40 PAIN IN JOINT SITE UNSPECIFIED 04/24/2012 LUPE BEE WORKER, SURESH S 780.52 INSOMNIA UNSPECIFIED 04/24/2012 CATIE ROGERS DO 625.9 UNSPECIFIED SYMPTOM ASSOCIATED WITH FEMALE GENITAL ORGANS 04/24/2012 SONIA ROGERS DOA K 719.40 PAIN IN JOINT SITE UNSPECIFIED 04/24/2012 ROGERS DOSONIAA K 780.52 INSOMNIA UNSPECIFIED 04/24/2012 ROWENA ANDRADE APRNA S 625.9 UNSPECIFIED SYMPTOM ASSOCIATED WITH FEMALE GENITAL ORG ANS 04/24/2012 ROWENA ANDRADE APRNA S 719.40 PAIN IN JOINT SITE UNSPECIFIED 04/24/2012 MATT ANDRADE APRNNDA S 780.52 INSOMNIA UNSPECIFIED 04/24/2012 625.9 UNSP ECIFIED SYMPTOM ASSOCIATED WITH FEMALE GENITAL ORGANS 04/24/2012 719.40 FADI N IN JOINT SITE UNSPECIFIED 04/24/2012 780.52 INS OMNIA UNSPECIFIED 04/24/2012 625.9 UNSP ECIFIED SYMPTOM ASSOCIATED WITH FEMALE GENITAL ORGANS 04/24/2012 719.40 FADI N IN JOINT SITE UNSPECIFIED 04/24/2012 780.52 INS OMNIA UNSPECIFIED 04/24/2012 625.9 UNSP ECIFIED SYMPTOM ASSOCIATED WITH FEMALE GENITAL ORGANS 04/24/2012 719.40 FADI N IN JOINT SITE UNSPECIFIED 04/24/2012 780.52 INS OMNIA UNSPECIFIED 04/24/2012 625.9 UNSP ECIFIED SYMPTOM ASSOCIATED WITH FEMALE GENITAL ORGANS 04/24/2012 719.40 FADI N IN JOINT SITE UNSPECIFIED 04/24/2012 780.52 INS OMNIA UNSPECIFIED 04/24/2012 ASHLI BROWN JOSE ELIAS ELDER 625.9 UNSPECIFIED SYMPTOM ASSOCIATED WITH FEMALE GENITAL ORG ANS 04/24/2012 ASHLI BROWN JOSE ELIAS ELDER 719.40 PAIN IN JOINT SITE UNSPECIFIED 04/24/2012 ASHLI BROWN JOSE ELIAS ELDER 780.52 INSOMNIA UNSPECIFIED 04/24/2012 MAINOR CONTRERAS APRN 62 5.9 UNSPECIFIED SYMPTOM ASSOCIATED WITH FEMALE GENITAL ORGANS 04/24/2012 AMINOR CONTRERAS APRN 719.40 PAIN IN JOINT SITE UNSPECIFIED 04/24/2012 MAINOR CONTRERAS APRN 780.52 INSOMNIA UNSPECIFIED 04/24/2012 SURESH ANDRADE APRN S 625.9 UNSPECIFIED SYMPTOM ASSOCIATED WITH FEMALE GENITAL ORG ANS 04/24/2012 ROWENA ANDRADE APRNA S 719.40 PAIN IN JOINT SITE UNSPECIFIED 04/24/2012 ROWENA ANDRADE APRNA S 780.52 INSOMNIA UNSPECIFIED 04/24/2012 LUPE BEE WORKER, SURESH S 625.9 UNSPECIFIED SYMPTOM ASSOCIATED WITH FEMALE GENITAL ORG ANS 04/24/2012 LUPE BEE WORKER, SURESH S 719.40 PAIN IN JOINT SITE UNSPECIFIED 04/24/2012 LUPE BEE WORKER, SURESH S 780.52 INSOMNIA UNSPECIFIED 04/24/2012 LUPE BEE WORKER, SURESH S 625.9 UNSPECIFIED SYMPTOM ASSOCIATED WITH FEMALE GENITAL ORG ANS 04/24/2012 LUPE BEE WORKER, SURESH S 719.40 PAIN IN JOINT SITE UNSPECIFIED 04/24/2012 LUPE BEE WORKER, SURESH S 780.52 INSOMNIA UNSPECIFIED 04/24/2012 LUPE BEE WORKER, SURESH S 625.9 UNSPECIFIED SYMPTOM ASSOCIATED WITH FEMALE GENITAL ORG ANS 04/24/2012 LUPE BEE WORKER, SURESH S 719.40 PAIN IN JOINT SITE UNSPECIFIED 04/24/2012 LUPE BEE WORKER, SURESH S 780.52 INSOMNIA UNSPECIFIED 04/24/2012 LUPE BEE WORKER, SURESH S 625.9 UNSPECIFIED SYMPTOM ASSOCIATED WITH FEMALE GENITAL ORG ANS 04/24/2012 LUPE BEE WORKER, SURESH S 719.40 PAIN IN JOINT SITE UNSPECIFIED 04/24/2012 LUPE BEE WORKER, SURESH S 780.52 INSOMNIA UNSPECIFIED 04/24/2012 625.9 UNSP ECIFIED SYMPTOM ASSOCIATED WITH FEMALE GENITAL ORGANS 04/24/2012 719.40 FADI N IN JOINT SITE UNSPECIFIED 04/24/2012 780.52 INS OMNIA UNSPECIFIED 04/24/2012 OG BEE WORKER, MEGHA 625 .9 UNSPECIFIED SYMPTOM ASSOCIATED WITH FEMALE GENITAL ORGANS 04/24/2012 OG BEE WORKER, MEGHA 719 .40 PAIN IN JOINT SITE UNSPECIFIED 04/24/2012 OG BEE WORKER, MEGHA 780 .52 INSOMNIA UNSPECIFIED 04/24/2012 LUPE BEE WORKER, SURESH S 625.9 UNSPECIFIED SYMPTOM ASSOCIATED WITH FEMALE GENITAL ORG ANS 04/24/2012 LUPE BEE WORKER, SURESH S 719.40 PAIN IN JOINT SITE UNSPECIFIED 04/24/2012 LUPE BEE WORKER, SURESH S 780.52 INSOMNIA UNSPECIFIED 04/24/2012 LUPE BEE WORKER SURESH S 625.9 UNSPECIFIED SYMPTOM ASSOCIATED WITH FEMALE GENITAL ORG ANS 04/24/2012 LUPE BEE WORKER, SURESH S 719.40 PAIN IN JOINT SITE UNSPECIFIED 04/24/2012 LUPE BEE WORKER, SURESH S 780.52 INSOMNIA UNSPECIFIED 04/24/2012 LUPE BEE WORKER, SURESH S 625.9 UNSPECIFIED SYMPTOM ASSOCIATED WITH FEMALE GENITAL ORG ANS 04/24/2012 LUPE BEE WORKER, SURESH S 719.40 PAIN IN JOINT SITE UNSPECIFIED 04/24/2012 LUPE WOLFN, SURESH S 780.52 INSOMNIA UNSPECIFIED 04/24/2012 [facility], SYBIL R 625.9 UNSPECIFIED SYMPTOM ASSOCIATED WITH FEMALE GENITAL ORG ANS 04/24/2012 [facility], SYBIL R 719.40 PAIN IN JOINT SITE UNSPECIFIED 04/24/2012 [facility], SYBIL R 780.52 INSOMNIA UNSPECIFIED 04/24/2012 LUPE BEE WORKER, SURESH S 625.9 UNSPECIFIED SYMPTOM ASSOCIATED WITH FEMALE GENITAL ORG ANS 04/24/2012 LUPE BROWN SURESH S 719.40 PAIN IN JOINT SITE UNSPECIFIED 04/24/2012 LUPE BEE WORKER, SURESH S 780.52 INSOMNIA UNSPECIFIED 04/24/2012 LUPE BEE WORKER, SURESH S 625.9 UNSPECIFIED SYMPTOM ASSOCIATED WITH FEMALE GENITAL ORG ANS 04/24/2012 LUPE BEE WORKER, SUERSH S 719.40 PAIN IN JOINT SITE UNSPECIFIED 04/24/2012 LUPE BEE WORKER, SURESH S 780.52 INSOMNIA UNSPECIFIED 04/24/2012 MAURICE BEE WORKER, JAILENE R 625.9 UNSPECIFIED SYMPTOM ASSOCIATED WITH FEMALE GENITAL ORG ANS 04/24/2012 MAURICE BEE WORKER, JAILENE R 719.40 PAIN IN JOINT SITE UNSPECIFIED 04/24/2012 MAURICE BEE WORKER, JAILENE R 780.52 INSOMNIA UNSPECIFIED 04/24/2012 PANCHO BEE WORKER, AIRAM A 62 5.9 UNSPECIFIED SYMPTOM ASSOCIATED WITH FEMALE GENITAL ORGANS 04/24/2012 PANCHO BEE WORKER, AIRAM A 719.40 PAIN IN JOINT SITE UNSPECIFIED 04/24/2012 PANCHO BEE WORKER, AIRAM A 780.52 INSOMNIA UNSPECIFIED 04/24/2012 [facility], SYBIL R 625.9 UNSPECIFIED SYMPTOM ASSOCIATED WITH FEMALE GENITAL ORG ANS 04/24/2012 FELICITAS LSCS, SYBIL R 719.40 PAIN IN JOINT SITE UNSPECIFIED 04/24/2012 FELICITAS LSCS, SYBIL R 780.52 INSOMNIA UNSPECIFIED 04/24/2012 FELICITAS LSCS, SYBIL R 625.9 UNSPECIFIED SYMPTOM ASSOCIATED WITH FEMALE GENITAL ORG ANS 04/24/2012 FELICITAS LSCS, SYBIL R 719.40 PAIN IN JOINT SITE UNSPECIFIED 04/24/2012 FELICITAS LSCS, SYBIL R 780.52 INSOMNIA UNSPECIFIED 04/24/2012 PANCHO BEE WORKER, AIRAM A 62 5.9 UNSPECIFIED SYMPTOM ASSOCIATED WITH FEMALE GENITAL ORGANS 04/24/2012 PANCHO BEE WORKER, AIRAM A 719.40 PAIN IN JOINT SITE UNSPECIFIED 04/24/2012 PANCHO BEE WORKER, AIRAM A 780.52 INSOMNIA UNSPECIFIED 05/02/2012 SURESH [...] CERVICAL CANCER SCREENING (PAP SMEAR) 05/02/2012 V76.10 MATT AST CANCER SCREENING 05/02/2012 V76.2 CERV ICAL CANCER SCREENING (PAP SMEAR) 05/02/2012 V76.10 MATT AST CANCER SCREENING 05/02/2012 V76.2 CERV ICAL CANCER SCREENING (PAP SMEAR) 05/02/2012 V76.10 MATT AST CANCER SCREENING 05/02/2012 V76.2 CERV ICAL CANCER SCREENING (PAP SMEAR) 05/02/2012 V76.10 MATT AST CANCER SCREENING 05/02/2012 V76.2 CERV ICAL CANCER SCREENING (PAP SMEAR) 05/02/2012 JOSE ELIAS CORNELIUS APRN V76.10 BREAST CANCER SCREENING 05/02/2012 JOSE ELIAS CORNELIUS APRN V76.2 CERVICAL CANCER SCREENING (PAP SMEAR) 05/02/2012 MAINOR CONTRERAS APRN V76.10 BREAST CANCER SCREENING 05/02/2012 MAINOR CONTRERAS APRN V7 6.2 CERVICAL CANCER SCREENING (PAP SMEAR) 05/02/2012 LUPE [...] CERVICAL CANCER SCREENING (PAP SMEAR) 05/02/2012 V76.10 MATT AST CANCER SCREENING 05/02/2012 V76.2 CERV ICAL CANCER SCREENING (PAP SMEAR) 05/02/2012 MEGHA FOLEY APRN V76 .10 BREAST CANCER SCREENING 05/02/2012 MEGHA FOLEY APRN V76 .2 CERVICAL CANCER SCREENING (PAP SMEAR) 05/02/2012 LUPE BROWN SURESH S V76.10 BREAST CANCER SCREENING 05/02/2012 LUPE BROWN, SURESH S V76.2 CERVICAL CANCER SCREENING (PAP SMEAR) 05/02/2012 LPUE BROWN SURESH S V76.10 BREAST CANCER SCREENING 05/02/2012 LUPE BROWN, SURESH S V76.2 CERVICAL CANCER SCREENING (PAP SMEAR) 05/02/2012 LUPE BROWN SURESH S V76.10 BREAST CANCER SCREENING 05/02/2012 LUPE BROWN SURESH S V76.2 CERVICAL CANCER SCREENING (PAP SMEAR) 05/02/2012 [facility], SYBIL R V76.10 BREAST CANCER SCREENING 05/02/2012 [facility], SYBIL R V76.2 CERVICAL CANCER [...] V76.2 CERVICAL CANCER SCREENING (PAP SMEAR) 05/02/2012 NASREEN DELEON APRNIDI A V76.10 BREAST CANCER SCREENING 05/02/2012 NASREEN DELEON APRNIDI A V7 6.2 CERVICAL CANCER SCREENING (PAP SMEAR) 05/02/2012 [facility], SYBIL R V76.10 BREAST CANCER SCREENING 05/02/2012 [facility], SYBIL R V76.2 CERVICAL CANCER SCREENING (PAP SMEAR) 05/02/2012 [facility], SYBIL R V76.10 BREAST CANCER SCREENING 05/02/2012 [facility], SYBIL R V76.2 CERVICAL CANCER SCREENING (PAP SMEAR) 05/02/2012 NASREEN DELEON APRNIDI A V76.10 BREAST CANCER SCREENING 05/02/2012 PANCHO BROWN AIRAM A V7 6.2 CERVICAL CANCER SCREENING (PAP SMEAR) 05/16/2012 MATT ANDRADE APRNNDA S 338.29 PAIN - CHRONIC 05/16/2012 MATT ANDRADE APRNNDA S 345.90 SEIZURE DISORDER 05/16/2012 LUPE BROWN SURESH S 338.29 PAIN - CHRONIC 05/16/2012 LUPE BROWN SURESH S 345.90 SEIZURE DISORDER 05/16/2012 ROGERS DO, CATIE K 338.29 PAIN - CHRONIC 05/16/2012 ROGERS DO, CATIE K 345.90 SEIZURE DISORDER 05/16/2012 LUPE BROWN SURESH S 338.29 PAIN - CHRONIC 05/16/2012 LUPE BROWN SURESH S 345.90 SEIZURE DISORDER 05/16/2012 338.29 FADI N - CHRONIC 05/16/2012 345.90 SEI ZURE DISORDER 05/16/2012 338.29 FADI N - CHRONIC 05/16/2012 345.90 SEI ZURE DISORDER 05/16/2012 338.29 FADI N - CHRONIC 05/16/2012 345.90 SEI ZURE DISORDER 05/16/2012 338.29 FADI N - CHRONIC 05/16/2012 345.90 SEI ZURE DISORDER 05/16/2012 ASHLI BROWN JOSE ELIAS ELDER [...] ANDRADE APRNNDA S 345.90 SEIZURE DISORDER 05/16/2012 LUPE BROWN SURESH S 338.29 PAIN - CHRONIC 05/16/2012 LUPE BROWN SURESH S 345.90 SEIZURE DISORDER 05/16/2012 LUPE BROWN SURESH S 338.29 PAIN - CHRONIC 05/16/2012 LUPE BROWN, SURESH S 345.90 SEIZURE DISORDER 05/16/2012 338.29 FADI N - CHRONIC 05/16/2012 345.90 SEI ZURE DISORDER 05/16/2012 OG BROWN MEGHA 338 .29 PAIN - CHRONIC 05/16/2012 BG FOLEY APRNETTE 345 .90 SEIZURE DISORDER 05/16/2012 MATT ANDRADE APRNNDA S 338.29 PAIN - CHRONIC 05/16/2012 MATT ANDRADE APRNNDA S 345.90 SEIZURE DISORDER 05/16/2012 LUPE BEE WORKER, SURESH S 338.29 PAIN - CHRONIC 05/16/2012 LUPE BEE WORKER, SURESH S 345.90 SEIZURE DISORDER 05/16/2012 LUPE BEE WORKER, SURESH S 338.29 PAIN - CHRONIC 05/16/2012 LUPE BEE WORKER, SURESH S 345.90 SEIZURE DISORDER 05/16/2012 [facility], SYBIL R 338.29 PAIN - CHRONIC 05/16/2012 [facility], SYBIL R 345.90 SEIZURE DISORDER 05/16/2012 LUPE BEE WORKER, SURESH S 338.29 PAIN - CHRONIC 05/16/2012 LUPE BEE WORKER, SURESH S 345.90 SEIZURE DISORDER 05/16/2012 LUPE BEE WORKER, SURESH S 338.29 PAIN - CHRONIC 05/16/2012 LUPE BEE WORKER, SURESH S 345.90 SEIZURE DISORDER 05/16/2012 MAURICE BEE WORKER, JAILENE R 338.29 PAIN - CHRONIC 05/16/2012 MAURICE BEE WORKER, JAILENE R 345.90 SEIZURE DISORDER 05/16/2012 PANCHO BEE WORKER, AIRAM A 338.29 PAIN - CHRONIC 05/16/2012 PANCHO BEE WORKER, AIRAM A 345.90 SEIZURE DISORDER 05/16/2012 [facility], SYBIL R 338.29 PAIN - CHRONIC 05/16/2012 [facility], SYBIL R 345.90 SEIZURE DISORDER 05/16/2012 [facility], SYBIL R 338.29 PAIN - CHRONIC 05/16/2012 [facility], SYBIL R 345.90 SEIZURE DISORDER 05/16/2012 PANCHO BEE WORKER, AIRAM A 338.29 PAIN - CHRONIC 05/16/2012 PANCHO BEE WORKER, AIRAM A 345.90 SEIZURE DISORDER 08/05/2012 CATIE ROGERS DO 305.20 NONDEPENDENT CANNABIS ABUSE UNSPECIFIED USE 08/05/2012 CATIE ROGERS DO 461.9 SINUSITIS ACUTE 08/05/2012 LUPE BROWN SURESH S 305.20 NONDEPENDENT CANNABIS ABUSE UNSPECIFIED USE 08/05/2012 LUPE BROWN SURESH S 461.9 SINUSITIS ACUTE 08/05/2012 305.20 NON DEPENDENT CANNABIS ABUSE UNSPECIFIED USE 08/05/2012 461.9 SINU SITIS ACUTE 08/05/2012 305.20 NON DEPENDENT CANNABIS ABUSE UNSPECIFIED USE 08/05/2012 461.9 SINU SITIS ACUTE 08/05/2012 305.20 NON DEPENDENT CANNABIS ABUSE UNSPECIFIED USE 08/05/2012 461.9 SINU SITIS ACUTE 08/05/2012 305.20 NON DEPENDENT CANNABIS ABUSE UNSPECIFIED USE 08/05/2012 461.9 SINU SITIS ACUTE 08/05/2012 ASHLI BROWN JOSE ELIAS ELDER 305.20 NONDEPENDENT CANNABIS ABUSE UNSPECIFIED USE 08/05/2012 ASHLI BROWN JOSE ELIAS ELDER 461.9 SINUSITIS ACUTE 08/05/2012 MAINOR CONTRERAS APRN 305.20 NONDEPENDENT CANNABIS ABUSE UNSPECIFIED USE 08/05/2012 MAINOR CONTRERAS APRN 46 1.9 SINUSITIS ACUTE 08/05/2012 ROWENA ANDRADE APRNA S 305.20 NONDEPENDENT CANNABIS ABUSE UNSPECIFIED USE 08/05/2012 ROWENA ANDRADE APRNA S 461.9 SINUSITIS ACUTE 08/05/2012 ROWENA ANDRADE APRNA S 305.20 NONDEPENDENT CANNABIS ABUSE UNSPECIFIED USE 08/05/2012 ROWENA ANDRADE APRNA S 461.9 SINUSITIS ACUTE 08/05/2012 MATT ANDRADE APRNNDA S 305.20 NONDEPENDENT CANNABIS ABUSE UNSPECIFIED USE 08/05/2012 MATT ANDRADE APRNNDA S 461.9 SINUSITIS ACUTE 08/05/2012 MATT ANDRADE APRNNDA S 305.20 NONDEPENDENT CANNABIS ABUSE UNSPECIFIED USE 08/05/2012 MATT ANDRADE APRNNDA S 461.9 SINUSITIS ACUTE 08/05/2012 MATT ANDRADE APRNNDA S 305.20 NONDEPENDENT CANNABIS ABUSE UNSPECIFIED USE 08/05/2012 MATT ANDRADE APRNNDA S 461.9 SINUSITIS ACUTE 08/05/2012 305.20 NON DEPENDENT CANNABIS ABUSE UNSPECIFIED USE 08/05/2012 461.9 SINU SITIS ACUTE 08/05/2012 MEGHA FOLEY APRN 305 .20 NONDEPENDENT CANNABIS ABUSE UNSPECIFIED USE 08/05/2012 MEGHA OFLEY APRN 461 .9 SINUSITIS ACUTE 08/05/2012 LUPE BEE WORKER, SURESH S 305.20 NONDEPENDENT CANNABIS ABUSE UNSPECIFIED USE 08/05/2012 LUPE BEE WORKER, SURESH S 461.9 SINUSITIS ACUTE 08/05/2012 LUPE BEE WORKER, SURESH S 305.20 NONDEPENDENT CANNABIS ABUSE UNSPECIFIED USE 08/05/2012 LUPE BEE WORKER, SURESH S 461.9 SINUSITIS ACUTE 08/05/2012 LUPE BEE WORKER, SURESH S 305.20 NONDEPENDENT CANNABIS ABUSE UNSPECIFIED USE 08/05/2012 LUPE BEE WORKER, SURESH S 461.9 SINUSITIS ACUTE 08/05/2012 [facility], SYBIL R 305.20 NONDEPENDENT CANNABIS ABUSE UNSPECIFIED USE 08/05/2012 [facility], SYBIL R 461.9 SINUSITIS ACUTE 08/05/2012 LUPE BEE WORKER, SURESH S 305.20 NONDEPENDENT CANNABIS ABUSE UNSPECIFIED USE 08/05/2012 LUPE BEE WORKER, SURESH S 461.9 SINUSITIS ACUTE 08/05/2012 LUPE BROWN, SURESH S 305.20 NONDEPENDENT CANNABIS ABUSE UNSPECIFIED USE 08/05/2012 LUPE BEE WORKER, SURESH S 461.9 SINUSITIS ACUTE 08/05/2012 MAURICE BEE WORKER, JAILENE R 305.20 NONDEPENDENT CANNABIS ABUSE UNSPECIFIED USE 08/05/2012 MAURICE BEE WORKER, JAILENE R 461.9 SINUSITIS ACUTE 08/05/2012 PANCHO BEE WORKER, AIRAM A 305.20 NONDEPENDENT CANNABIS ABUSE UNSPECIFIED USE 08/05/2012 PANCHO BEE WORKER, AIRAM A 46 1.9 SINUSITIS ACUTE 08/05/2012 [facility], SYBIL R 305.20 NONDEPENDENT CANNABIS ABUSE UNSPECIFIED USE 08/05/2012 [facility], SYBIL R 461.9 SINUSITIS ACUTE 08/05/2012 [facility], SYBIL R 305.20 NONDEPENDENT CANNABIS ABUSE UNSPECIFIED USE 08/05/2012 [facility], SYBIL R 461.9 SINUSITIS ACUTE 08/05/2012 PANCHO BEE WORKER, AIRAM A 305.20 NONDEPENDENT CANNABIS ABUSE UNSPECIFIED USE 08/05/2012 PANCHO BEE WORKER, AIRAM A 46 1.9 SINUSITIS ACUTE 09/16/2012 LUPE BEE WORKER, SURESH S 305.50 NONDEPENDENT OPIOID ABUSE UNSPECIFIED USE 09/16/2012 SURESH ANDRADE APRN S 311 DEPRESSIVE DISORDER NOS 09/16/2012 SURESH ANDRADE APRN S 562.11 DIVERTICULITIS OF COLON (WITHOUT HEMORRHAGE) 09/16/2012 SURESH ANDRADE APRN S 719.46 PAIN- KNEE 09/16/2012 305.50 NON DEPENDENT OPIOID ABUSE UNSPECIFIED USE 09/16/2012 311 DEPRES SIVE DISORDER NOS 09/16/2012 562.11 DIV ERTICULITIS OF COLON (WITHOUT HEMORRHAGE) 09/16/2012 719.46 FADI N- KNEE 09/16/2012 305.50 NON DEPENDENT OPIOID ABUSE UNSPECIFIED USE 09/16/2012 311 DEPRES SIVE DISORDER NOS 09/16/2012 562.11 DIV ERTICULITIS OF COLON (WITHOUT HEMORRHAGE) 09/16/2012 719.46 FADI N- KNEE 09/16/2012 305.50 NON DEPENDENT OPIOID ABUSE UNSPECIFIED USE 09/16/2012 311 DEPRES SIVE DISORDER NOS 09/16/2012 562.11 DIV ERTICULITIS OF COLON (WITHOUT HEMORRHAGE) 09/16/2012 719.46 FADI N- KNEE 09/16/2012 305.50 NON DEPENDENT OPIOID ABUSE UNSPECIFIED USE 09/16/2012 311 DEPRES SIVE DISORDER NOS 09/16/2012 562.11 DIV ERTICULITIS OF COLON (WITHOUT HEMORRHAGE) 09/16/2012 719.46 FADI N- KNEE 09/16/2012 ASHLI BROWN JOSE ELIAS ELDER 305.50 NONDEPENDENT OPIOID ABUSE UNSPECIFIED USE 09/16/2012 ASHLI BROWN JOSE ELIAS ELDER 311 DEPRESSIVE DISORDER NOS 09/16/2012 ASHLI BROWN JOSE ELIAS ELDER 562.11 DIVERTICULITIS OF COLON (WITHOUT HEMORRHAGE) 09/16/2012 ASHLI BROWN JOSE ELIAS ELDER 719.46 PAIN- KNEE 09/16/2012 MAINOR CONTRERAS APRN 305.50 NONDEPENDENT OPIOID ABUSE UNSPECIFIED USE 09/16/2012 MAINOR CONTRERAS APRN 31 1 DEPRESSIVE DISORDER NOS 09/16/2012 MAINOR CONTRERAS APRN 562.11 DIVERTICULITIS OF COLON (WITHOUT HEMORRHAGE) 09/16/2012 MAINOR CONTRERAS APRN 719.46 PAIN- KNEE 09/16/2012 LUPE BEE WORKER, SURESH S 305.50 NONDEPENDENT OPIOID ABUSE UNSPECIFIED USE 09/16/2012 LUPE BEE WORKER, SURESH S 311 DEPRESSIVE DISORDER NOS 09/16/2012 LUPE BROWN SURESH S 562.11 DIVERTICULITIS OF COLON (WITHOUT HEMORRHAGE) 09/16/2012 LUPE BEE WORKER SURESH S 719.46 PAIN- KNEE 09/16/2012 LUPE BEE WORKER SURESH S 305.50 NONDEPENDENT OPIOID ABUSE UNSPECIFIED USE 09/16/2012 MATT ANDRADE APRNNDA S 311 DEPRESSIVE DISORDER NOS 09/16/2012 LUPE BEE WORKER, SURESH S 562.11 DIVERTICULITIS OF COLON (WITHOUT HEMORRHAGE) 09/16/2012 LUPE BROWN SURESH S 719.46 PAIN- KNEE 09/16/2012 LUPE BEE WORKER, SURESH S 305.50 NONDEPENDENT OPIOID ABUSE UNSPECIFIED USE 09/16/2012 MATT ANDRADE APRNNDA S 311 DEPRESSIVE DISORDER NOS 09/16/2012 MATT ANDRADE APRNNDA S 562.11 DIVERTICULITIS OF COLON (WITHOUT HEMORRHAGE) 09/16/2012 LUPE BEE WORKER, SURESH S 719.46 PAIN- KNEE 09/16/2012 LUPE BROWN SURESH S 305.50 NONDEPENDENT OPIOID ABUSE UNSPECIFIED USE 09/16/2012 LUPE BROWN SURESH S 311 DEPRESSIVE DISORDER NOS 09/16/2012 LUPE BROWN SURESH S 562.11 DIVERTICULITIS OF COLON (WITHOUT HEMORRHAGE) 09/16/2012 LUPE BROWN SURESH S 719.46 PAIN- KNEE 09/16/2012 LUPE BROWN SURESH S 305.50 NONDEPENDENT OPIOID ABUSE UNSPECIFIED USE 09/16/2012 LUPE BROWN SURESH S 311 DEPRESSIVE DISORDER NOS 09/16/2012 LUPE BROWN SURESH S 562.11 DIVERTICULITIS OF COLON (WITHOUT HEMORRHAGE) 09/16/2012 LUPE BEE WORKER, SURESH S 719.46 PAIN- KNEE 09/16/2012 305.50 NON DEPENDENT OPIOID ABUSE UNSPECIFIED USE 09/16/2012 311 DEPRES SIVE DISORDER NOS 09/16/2012 562.11 DIV ERTICULITIS OF COLON (WITHOUT HEMORRHAGE) 09/16/2012 719.46 FADI N- KNEE 09/16/2012 OG BEE WORKERBG HollingsworthMEGHA 305 .50 NONDEPENDENT OPIOID ABUSE UNSPECIFIED USE 09/16/2012 OG BEE WORKER, MEGHA 311 DEPRESSIVE DISORDER NOS 09/16/2012 OG BEE WORKER, MEGHA 562 .11 DIVERTICULITIS OF COLON (WITHOUT HEMORRHAGE) 09/16/2012 OG BEE WORKERBGMEGHA 719 .46 PAIN- KNEE 09/16/2012 LUPE BEE WORKER SURESH S 305.50 NONDEPENDENT OPIOID ABUSE UNSPECIFIED USE 09/16/2012 LUPE BEE WORKER SURESH S 311 DEPRESSIVE DISORDER NOS 09/16/2012 LUPE BROWN SURESH S 562.11 DIVERTICULITIS OF COLON (WITHOUT HEMORRHAGE) 09/16/2012 LUPE BEE WORKER, SURESH S 719.46 PAIN- KNEE 09/16/2012 LUPE BEE WORKER SURESH S 305.50 NONDEPENDENT OPIOID ABUSE UNSPECIFIED USE 09/16/2012 LUPE BROWN SURESH S 311 DEPRESSIVE DISORDER NOS 09/16/2012 LUPE BEE WORKER SURESH S 562.11 DIVERTICULITIS OF COLON (WITHOUT HEMORRHAGE) 09/16/2012 LUPE BROWN SURESH S 719.46 PAIN- KNEE 09/16/2012 LUPE BEE WORKER SURESH S 305.50 NONDEPENDENT OPIOID ABUSE UNSPECIFIED USE 09/16/2012 LUPE BEE WORKER SURESH S 311 DEPRESSIVE DISORDER NOS 09/16/2012 LUPE BROWN SURESH S 562.11 DIVERTICULITIS OF COLON (WITHOUT HEMORRHAGE) 09/16/2012 LUPE BEE WORKER, SURESH S 719.46 PAIN- KNEE 09/16/2012 [facility], SYBIL R 305.50 NONDEPENDENT OPIOID ABUSE UNSPECIFIED USE 09/16/2012 [facility], SYBIL R 311 DEPRESSIVE DISORDER NOS 09/16/2012 [facility], SYBIL R 562.11 DIVERTICULITIS OF COLON (WITHOUT HEMORRHAGE) 09/16/2012 [facility], SYBIL R 719.46 PAIN- KNEE 09/16/2012 LUPE BROWN SURESH S 305.50 NONDEPENDENT OPIOID ABUSE UNSPECIFIED USE 09/16/2012 LUPE BEE WORKER, SURESH S 311 DEPRESSIVE DISORDER NOS 09/16/2012 LUPE BEE WORKER, SURESH S 562.11 DIVERTICULITIS OF COLON (WITHOUT HEMORRHAGE) 09/16/2012 LUPE BEE WORKER, SURESH S 719.46 PAIN- KNEE 09/16/2012 LUPE BEE WORKER, SURESH S 305.50 NONDEPENDENT OPIOID ABUSE UNSPECIFIED USE 09/16/2012 LUPE BEE WORKER, SURESH S 311 DEPRESSIVE DISORDER NOS 09/16/2012 LUPE BEE WORKER, SURESH S 562.11 DIVERTICULITIS OF COLON (WITHOUT HEMORRHAGE) 09/16/2012 LUPE BEE WORKER, SURESH S 719.46 PAIN- KNEE 09/16/2012 MAURICE BEE WORKER, JAILENE R 305.50 NONDEPENDENT OPIOID ABUSE UNSPECIFIED USE 09/16/2012 MAURICE BEE WORKER, JAILENE R 3 11 DEPRESSIVE DISORDER NOS 09/16/2012 MAURICE BEE WORKER, JAILENE R 562.11 DIVERTICULITIS OF COLON (WITHOUT HEMORRHAGE) 09/16/2012 MAURICE BEE WORKER, JAILENE R 719.46 PAIN- KNEE 09/16/2012 PANCHO BEE WORKER, AIRAM A 305.50 NONDEPENDENT OPIOID ABUSE UNSPECIFIED USE 09/16/2012 PANCHO BEE WORKER, AIRAM A 31 1 DEPRESSIVE DISORDER NOS 09/16/2012 PANCHO BEE WORKER, AIRAM A 562.11 DIVERTICULITIS OF COLON (WITHOUT HEMORRHAGE) 09/16/2012 PANCHO BEE WORKER, AIRAM A 719.46 PAIN- KNEE 09/16/2012 [facility], SYBIL R 305.50 NONDEPENDENT OPIOID ABUSE UNSPECIFIED USE 09/16/2012 [facility], SYBIL R 311 DEPRESSIVE DISORDER NOS 09/16/2012 [facility], SYBIL R 562.11 DIVERTICULITIS OF COLON (WITHOUT HEMORRHAGE) 09/16/2012 [facility], SYBIL R 719.46 PAIN- KNEE 09/16/2012 [facility], SYBIL R 305.50 NONDEPENDENT OPIOID ABUSE UNSPECIFIED USE 09/16/2012 [facility], SYBIL R 311 DEPRESSIVE DISORDER NOS 09/16/2012 [facility], SYBIL R 562.11 DIVERTICULITIS OF COLON (WITHOUT HEMORRHAGE) 09/16/2012 [facility], SYBIL R 719.46 PAIN- KNEE 09/16/2012 AIRAM DELEON APRN A 305.50 NONDEPENDENT OPIOID ABUSE UNSPECIFIED USE 09/16/2012 AIRAM DELEON APRN A 31 1 DEPRESSIVE DISORDER NOS 09/16/2012 AIRAM DELEON APRN A 562.11 DIVERTICULITIS OF COLON (WITHOUT HEMORRHAGE) 09/16/2012 AIRAM DELEON APRN A 719.46 PAIN- KNEE 11/08/2012 626.4 IRRE GULAR MENSTRUAL CYCLE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 10/28/2018 KATELYN SHERIFF MD Ot K29.7 0 GASTRITIS, UNSPECIFIED, WITHOUT BLEEDING 10/28/2018 KATELYN SHERIFF MD Ot K44.9 DIAPHRAGMATIC HERNIA WITHOUT OBSTRUCTION 10/28/2018 KATELYN SHERIFF MD Ot K58.1 IRRITABLE BOWEL SYNDROME WITH CONSTIPATI 10/28/2018 KATELYN SHERIFF MD Ot M19.9 1 PRIMARY OSTEOARTHRITIS, UNSPECIFIED SITE 10/28/2018 KATELYN SHERIFF MD Ot Z79.8 99 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 [employer]ELOPER (CURRENT) DRUG THERAPY 10/28/2018 KATELYN SHERIFF MD Ot Z80.0 FAMILY HISTORY OF MALIGNANT NEOPLASM OF 10/28/2018 KATELYN SHERIFF MD Ot Z85.0 38 PERSONAL HISTORY OF MALIGNANT NEOPLASM O 10/28/2018 KATELYN SHERIFF MD Ot Z86.0 10 PERSONAL HISTORY OF COLONIC POLYPS 10/28/2018 KATELYN SHERIFF MD Ot Z88.0 ALLERGY STATUS TO PENICILLIN 10/28/2018 KATELYN SHERIFF MD Ot Z90.4 9 ACQUIRED ABSENCE OF OTHER SPECIFIED PART 10/28/2018 KATELYN SHERIFF MD Ot E78.0 0 PURE HYPERCHOLESTEROLEMIA, UNSPECIFIED 10/28/2018 KATELYN SHERIFF MD Ot E78.5 HYPERLIPIDEMIA, UNSPECIFIED 10/28/2018 KATELYN SHERIFF MD Ot E87.1 HYPO-OSMOLALITY AND HYPONATREMIA 10/28/2018 KATELYN SHERIFF MD Ot E87.6 HYPOKALEMIA 10/28/2018 KATELYN SHERIFF MD Ot F31.9 BIPOLAR DISORDER, UNSPECIFIED 10/28/2018 KATELYN SHERIFF MD Ot F41.9 ANXIETY DISORDER, UNSPECIFIED 10/28/2018 KATELYN SHERIFF MD Ot G43.9 09 MIGRAINE, UNSP, NOT INTRACTABLE, WITHOUT 10/28/2018 KATELYN SHERIFF MD Ot H40.9 UNSPECIFIED GLAUCOMA 10/28/2018 KATELYN SHERIFF MD Ot I10 ESSENTIAL (PRIMARY) HYPERTENSION 10/28/2018 KATELYN SHERIFF MD Ot K21.0 GASTRO-ESOPHAGEAL REFLUX DISEASE WITH ES 10/28/2018 KATELYN SHERIFF MD Ot K29.7 0 GASTRITIS, UNSPECIFIED, WITHOUT BLEEDING 10/28/2018 KATELYN SHERIFF MD Ot K44.9 DIAPHRAGMATIC HERNIA WITHOUT OBSTRUCTION 10/28/2018 KATELYN SHERIFF MD Ot K58.1 IRRITABLE BOWEL SYNDROME WITH CONSTIPATI 10/28/2018 KATELYN SHERIFF MD Ot M19.9 1 PRIMARY OSTEOARTHRITIS, UNSPECIFIED SITE 10/28/2018 KATELYN SHERIFF MD Ot Z79.8 99 OTHER [facility] (CURRENT) DRUG THERAPY 10/28/2018 KATELYN SHERIFF MD Ot Z80.0 FAMILY HISTORY OF MALIGNANT NEOPLASM OF 10/28/2018 KATLEYN SHERIFF MD Ot Z85.0 38 PERSONAL HISTORY OF MALIGNANT NEOPLASM O 10/28/2018 KATELYN SHERIFF MD Ot Z86.0 10 PERSONAL HISTORY OF COLONIC POLYPS 10/28/2018 KATELYN SHERIFF MD Ot Z88.0 ALLERGY STATUS TO PENICILLIN 10/28/2018 KATELYN SHERIFF MD Ot Z90.4 9 ACQUIRED ABSENCE OF OTHER SPECIFIED PART 08/15/2019 CHRISTENSEN DO, OLIVERIO L Ot I10 ESSENTIAL (PRIMARY) HYPERTENSION 08/15/2019 CHRISTENSEN DO, OLIVERIO L Ot K21.9 GASTRO-ESOPHAGEAL REFLUX DISEASE WITHOUT 08/15/2019 CHRISTENSEN DO, OLIVERIO L Ot R10.3 0 LOWER ABDOMINAL PAIN, UNSPECIFIED 08/15/2019 CHRISTENSEN DO, OLIVERIO L Ot R30.0 DYSURIA 08/15/2019 CHRISTENSEN DO, OLIVERIO L Ot Z79.5 1 [employer] (CURRENT) USE OF INHALED STERO 08/15/2019 CHRISTENSEN DO, OLIVERIO L Ot Z82.4 9 FAMILY HX OF ISCHEM HEART DIS AND OTH DI 08/15/2019 CHRISTENSEN DO, OLIVERIO L Ot Z85.0 38 PERSONAL HISTORY OF MALIGNANT NEOPLASM O 08/15/2019 CHRISTENSEN DO, OLIVERIO L Ot Z88.0 ALLERGY STATUS TO PENICILLIN 08/15/2019 SURESH ANDRADE MACHINE MAINTENANCE SUPERVISOR Ot E04.1 NONTOXIC SINGLE THYROID NODULE 08/15/2019 SURESH ANDRADE MACHINE MAINTENANCE SUPERVISOR Ot E04.1 NONTOXIC SINGLE THYROID NODULE 08/15/2019 SURESH ANDRADE MACHINE MAINTENANCE SUPERVISOR Ot E04.1 NONTOXIC SINGLE THYROID NODULE 08/15/2019 OTILIA WHEATLEY, ERIC Lea Ot E04 .1 NONTOXIC SINGLE THYROID NODULE 08/20/2019 CHRISTENSEN DO, OLIVERIO L Ot I10 ESSENTIAL (PRIMARY) HYPERTENSION 08/20/2019 CHRISTENSEN DO, OLIVERIO L Ot K21.9 GASTRO-ESOPHAGEAL REFLUX DISEASE WITHOUT 08/20/2019 CHRISTENSEN DO, OLIVERIO L Ot R10.3 0 LOWER ABDOMINAL PAIN, UNSPECIFIED 08/20/2019 CHRISTENSEN DO, OLIVERIO L Ot R30.0 DYSURIA 08/20/2019 CHRISTENSEN DO, OLIVERIO L Ot Z79.5 1 [facility] (CURRENT) USE OF INHALED STERO 08/20/2019 CHRISTENSEN DO, OLIVERIO L Ot Z82.4 9 FAMILY HX OF ISCHEM HEART DIS AND OTH DI 08/20/2019 CHRISTENSEN DO, OLIVERIO L Ot Z85.0 38 PERSONAL HISTORY OF MALIGNANT NEOPLASM O 08/20/2019 CHRISTENSEN DO, OLIVERIO L Ot Z88.0 ALLERGY STATUS TO PENICILLIN 11/14/2019 SURESH ANDRADEP Ot E04.1 NONTOXIC SINGLE THYROID NODULE 11/14/2019 SURESH ANDRADE MACHINE MAINTENANCE SUPERVISOR Ot E04.1 NONTOXIC SINGLE THYROID NODULE 11/14/2019 SURESH ANDRADE MACHINE MAINTENANCE SUPERVISOR Ot E04.1 NONTOXIC SINGLE THYROID NODULE 11/14/2019 OTILIA WHEATLEY, ERIC Lea Ot E04 .1 NONTOXIC SINGLE THYROID NODULE 11/16/2019 JAZIEL WHEATLEY, KATELYN Ortega Ot E04.2 NONTOXIC MULTINODULAR GOITER Procedures Code Description [place] [address] UA W / CULTURE IF INDICATED 04/24/2012 73954 GC/C HLAM URINE (STATE) 04/24/2012 64275 MAMM OGRAM, SCREENING 05/02/2012 Q0091 PAP SMEAR OBTAIN SMEAR 05/02/2012 95630 PAP SMEAR 05/05/2012 70995 ROUT INE VENIPUNCTURE 05/16/2012 19606 URIN E DRUG SCREEN (IN-HOUSE) 05/16/2012 86694 ESR/ SED RATE 05/16/2012 59715 CBC 05/16/2012 20583 CMP 05/16/2012 [id number] GF R CALC (RESULT ONLY) 05/16/2012 71157 EEG 06/09/2012 74341 ROUT INE VENIPUNCTURE 11/08/2012 06086 MRI BRAIN W/O & W/DYE 11/08/2012 63664 URIN E DRUG SCREEN (IN-HOUSE) 11/08/2012 78053 UA W / CULTURE IF INDICATED 11/08/2012 05649 URIN E TEST (IN- HOUSE) 11/08/2012 48541 CMP 11/08/2012 [id number] GF R CALC (RESULT ONLY) 11/08/2012 07061 CBC 11/08/2012 26699 MAMM OGRAM, SCREENING 11/15/2012 59255 GC/C HLAM PROBE (STATE) 11/15/2012 73986 TRIC HOMONAS (IN-HOUSE) 11/15/2012 04084 UA W / CULTURE IF INDICATED 11/15/2012 67472 CULT URE URINE 11/17/2012 39355 CULT URE UROGENITAL 11/17/2012 30820 URIN E DRUG SCREEN (IN-HOUSE) 01/30/2013 66880 PSYT X PT&/FAMILY 45 MINUTES 01/31/2013 04665 UA W / CULTURE IF INDICATED 05/18/2013 52892 CBC 05/18/2013 44554 HIV ANTIBODIES (RML) 05/18/2013 79327 SYPH ILLIS TEST 05/19/2013 72429 CULT URE URINE 05/20/2013 13673 GC/C HLAM URINE (STATE) 05/22/2013 09662 ROUT INE VENIPUNCTURE 05/24/2013 51586 LIPI D PANEL 05/24/2013 05233 XRAY RIBS LEFT UNILATERAL 2 OR MORE VIEWS 06/26/2013 37840 CULT URE URINE 06/26/2013 83487 UA W / CULTURE IF INDICATED 06/26/2013 57364 ROUT INE VENIPUNCTURE 12/11/2013 78305 XRAY CHEST 2 VIEW 12/11/2013 50499 EKG, TRACING (IN-HOUSE) 12/11/2013 14909 AMERITOX 12/11/2013 41270 CBC 12/11/2013 03345 CMP 12/11/2013 82401 LIPI D PANEL 12/11/2013 96017 MAGNESIUM 12/11/2013 22233 URIC ACID 12/11/2013 9116139 GF R CALC (RESULT ONLY) 12/11/2013 71525 CRP 12/11/2013 83068 TSH 12/11/2013 42938 RA FACTOR 12/12/2013 99017 ASO 12/12/2013 ANAANA DAPHNE ANALYZER (SCREEN) 12/12/2013 CARDIOLOG ARACELI SEGOVIA 12/20/2013 49511 PULM ONARY FUNCTION TEST 12/24/2013 87555 PSYC H DIAGNOSTIC EVALUATION 01/04/2014 30197 CULT URE URINE 02/13/2014 48254 UA W / CULTURE IF INDICATED 02/13/2014 35936 UA W / CULTURE IF INDICATED 06/05/2014 18183 CULT URE URINE 06/06/2014 02295 PSYT X PT&/FAMILY 30 MINUTES 06/27/2014 12133 PSYT X PT&/FAMILY 45 MINUTES 07/25/2014 65588 UA W / CULTURE IF INDICATED 08/29/2014 80940 TRIC HOMONAS (IN-HOUSE) 08/29/2014 71866 CULT URE URINE 08/30/2014 03512 GC/C HLAM PROBE (STATE) 08/31/2014 33268 CULT URE UROGENITAL 09/01/2014 Results Test Result Range CBC With Differential/Platelet - 6 15:27 WBC 8.9 x10E3/uL 3.4-10.8 RBC 4.84 x10E6/uL 3.77-5.28 Hemoglobin 14.4 g/dL 11.1-15.9 Hematocrit 42.8 % 34.0-46.6 MCV 88 fL 79-97 MCH 29.8 pg 26.6-33.0 MCHC 33.6 g/dL 31.5-35.7 RDW 14.0 % 12.3-15.4 Platelets 342 x10E3/uL 150-379 Neutrophils 60 % Lymphs 33 % Monocytes 7 % Eos 0 % Basos 0 % Neutrophils (Absolute) 5.2 x10E3/uL 1.4- 7.0 Lymphs (Absolute) 3.0 x10E3/uL 0.7-3.1 Monocytes(Absolute) 0.7 x10E3/uL 0.1-0.9 Eos (Absolute) 0.0 x10E3/uL 0.0-0.4 Baso (Absolute) 0.0 x10E3/uL 0.0-0.2 Immature Granulocytes 0 % Immature Grans (Abs) 0.0 x10E3/uL 0.0-0. 1 Comp. Metabolic Panel (14) - 05/11/16 15 :27 Glucose, Serum 89 mg/dL 65-99 BUN 8 mg/dL 6-24 Creatinine, Serum 0.71 mg/dL 0.57-1.00 eGFR If NonAfricn Am 100 mL/min/1.73 >59 eGFR If Africn Am 116 mL/min/1.73 >5 9 BUN/Creatinine Ratio 11 9-23 Sodium, Serum 143 mmol/L 136-144 Potassium, Serum 3.8 mmol/L 3.5-5.2 Chloride, Serum 98 mmol/L 97-106 Carbon Dioxide, Total 26 mmol/L 18-29 Calcium, Serum 9.6 mg/dL 8.7-10.2 Protein, Total, Serum 7.1 g/dL 6.0-8.5 Albumin, Serum 4.4 g/dL 3.5-5.5 Globulin, Total 2.7 g/dL 1.5-4.5 A/G Ratio 1.6 1.1-2.5 Bilirubin, Total 0.4 mg/dL 0.0-1.2 Alkaline Phosphatase, S 81 IU/L 39-117 AST (SGOT) 18 IU/L 0-40 ALT (SGPT) 23 IU/L 0-32 TSH+Free T4 - 08/13/16 12:01 TSH 1.150 uIU/mL 0.450-4.500 T4,Free(Direct) 1.30 ng/dL 0.82-1.77 Rheumatoid Arthritis Factor - 11/02/16 1 5:12 RA Latex Turbid. <10.0 IU/mL 0.0-13.9 Sedimentation Rate-Westergren - 11/02/16 15:12 Sedimentation Rate-[place] 28 mm/hr 0-32 A1C - 11/09/17 08:09 HEMOGLOBIN A1c 5.0 % of total Hgb <5.7 Complete blood count (CBC) with automate d white blood cell (WBC) differential - 03/27/18 11:20 Blood leukocytes automated count (number/volume) 8.4 10*3/uL 4.3-11.0 Blood erythrocytes automated count (number/volume) 4.86 10*6/uL 4.35-5.85 Venous blood hemoglobin measurement (mass/volume) 15.2 g/dL 11.5-16.0 Blood hematocrit (volume fraction) 41 % 35-52 Automated erythrocyte mean corpuscular volume 84 [ foz_us] 80-99 Automated erythrocyte mean corpuscular h emoglobin (mass per erythrocyte) 31 pg 25-34 Automated erythrocyte mean corpuscular h emoglobin concentration measurement (mass/volume) 37 g/dL 32-36 Automated erythrocyte distribution width ratio 13. 5 % 10.0- 14.5 Automated blood platelet count [...] 10*3 1.0-4.0 Blood monocytes automated count (number/volume) 0. 7 10*3 0.0-1.0 Automated eosinophil count 0.0 10*3/uL 0 .0-0.3 Automated blood basophil count (count/volume) 0.0 10*3/uL 0.0-0.1 Comprehensive metabolic panel - 03/27/18 11:20 Serum or plasma sodium measurement (moles/volume) 141 mmol/L 135-145 Serum or plasma potassium measurement (moles/volume) 3.9 mmol/L 3.6-5.0 Serum or plasma chloride measurement (moles/volume) 106 mmol/L 98-107 Carbon dioxide 22 mmol/L 21-32 Serum or plasma anion gap determination (moles/volume) 13 mmol/L 5-14 Serum or plasma urea nitrogen measurement (mass/volume ) 8 mg/dL 7-18 Serum or plasma creatinine measurement (mass/volume) 0.69 mg/dL 0.60-1.30 Serum or plasma urea nitrogen/creatinine mass ratio 12 NRG Serum or plasma creatinine measurement w ith calculation of estimated glomerular filtration rate > NRG Serum or plasma glucose measurement (mass/volume) 110 mg/dL 70-105 Serum or plasma calcium measurement (mass/volume) 9.7 mg/dL 8.5-10.1 Serum or plasma total bilirubin measurement (mass/volu me) 0.5 mg/dL 0.1-1.0 Serum or plasma alkaline phosphatase sasha surement (enzymatic activity/volume) 81 U/L 40-136 Serum or plasma aspartate aminotransfera se measurement (enzymatic activity/volume) 18 U/L 5-34 Serum or plasma alanine aminotransferase measurement (enzymatic activity/volume) 25 U/L 0-55 Serum or plasma protein measurement (mass/volume) 7.6 g/dL 6.4-8.2 Serum or plasma albumin measurement (mass/volume) 4.4 g/dL 3.2-4.5 CALCIUM CORRECTED 9.4 mg/dL 8.5-10.1 Magnesium - 03/27/18 11:20 Magnesium 2.0 mg/dL 1.8-2.4 Serum or plasma lithium measurement (mol es/volume) - 03/27/18 11:20 BNP level 63.9 pg/mL <100.0 Serum or plasma troponin i.cardiac measu rement (mass/volume) - 03/27/18 11:20 Serum or plasma troponin i.cardiac measurement (mass/v olume) < ng/mL <0.30 THYROID STIMULATING HORMONE - 03/27/18 1 1:20 THYROID STIMULATING HORMONE 1.00 u[iU]/mL 0.35-4.94 Serum or plasma thyroxine (T4) free ragini urement (mass/volume) - 03/27/18 11:20 Serum or plasma thyroxine (T4) free measurement (mass/ volume) 1.05 ng/dL 0.70-1.48 Complete urinalysis with reflex to cultu re - 03/27/18 12:10 Urine color determination YELLOW NRG Urine clarity determination SLIGHTLY CLOUDY NRG Urine pH measurement by test strip 6 5-9 Specific gravity of urine by test strip 1.010 1.016-1.022 Urine protein assay by test strip, semi-quantitative NEGATIVE NEGATIVE Urine glucose detection by automated test strip NE GATIVE NEGATIVE Erythrocytes detection in urine sediment by light micr oscopy 1+ NEGATIVE Urine ketones detection by automated test strip NE GATIVE NEGATIVE Urine nitrite detection by test strip NEGATIVE NEGATIVE Urine total bilirubin detection by test strip NEGA TIVE NEGATIVE Urine urobilinogen measurement by automated test strip (mass/volume) NORMAL NORMAL Urine leukocyte esterase detection by dipstick 3+ NEGATIVE Automated urine sediment erythrocyte cou nt by microscopy (number/high power field) [HPF] NRG Automated urine sediment leukocyte count by microscopy (number/high power field) [HPF] NRG Bacteria detection in urine sediment by light microsco py FEW NRG Squamous epithelial cells detection in u rine sediment by light microscopy 0-2 NRG Crystals detection in urine sediment by light microsco py NONE NRG Casts detection in urine sediment by light microscopy NONE NRG Mucus detection in urine sediment by light microscopy NEGATIVE NRG Complete urinalysis with reflex to culture YES NRG Urine drug screening test - 03/27/18 12: 10 Urine phencyclidine detection by screening method NEGATIVE NEGATIVE Urine benzodiazepines detection by screening method POSITIVE NEGATIVE Urine cocaine detection NEGATIVE NEGATI VE Urine amphetamines detection by screening method N EGATIVE NEGATIVE Urine methamphetamine detection by screening method NEGATIVE NEGATIVE Urine cannabinoids detection by screening method P OSITIVE NEGATIVE Urine opiates detection by screening method NEGATI VE NEGATIVE Urine barbiturates detection NEGATIVE N EGATIVE Screening urine tricyclic antidepressants detection NEGATIVE NEGATIVE Urine methadone detection by screening method NEGA TIVE NEGATIVE Urine oxycodone detection NEGATIVE NEGA TIVE Urine propoxyphene detection NEGATIVE N EGATIVE Bacterial urine culture - 03/27/18 12:10 Bacterial [...] SCREEN, IFA, W/REFL NRG TEST CODE: [id number] NRG CLIENT CONTACT: JOHN ESTRADA NR REPORT ALWAYS MESSAGE SIGNATURE NRG COMMENT NRG CMP - 09/29/18 15:45 GLUCOSE 95 mg/dL 65-99 UREA NITROGEN (BUN) 5 mg/dL 7-25 CREATININE 0.56 mg/dL 0.50-1.05 eGFR NON-AFR. MONEGASQUE 108 mL/min/1.73m2 > OR = 60 eGFR 125 mL/min/1.73m2 > OR = 60 BUN/CREATININE RATIO 9 (calc) 6-22 SODIUM 130 mmol/L 135-146 POTASSIUM 3.4 mmol/L 3.5-5.3 CHLORIDE 90 mmol/L 98-110 CARBON DIOXIDE 33 mmol/L 20-32 CALCIUM 10.0 mg/dL 8.6-10.4 PROTEIN, TOTAL 7.2 g/dL 6.1-8.1 ALBUMIN 4.4 g/dL 3.6-5.1 GLOBULIN 2.8 g/dL (calc) 1.9-3.7 ALBUMIN/GLOBULIN RATIO 1.6 (calc) 1.0-2. 5 BILIRUBIN, TOTAL 0.5 mg/dL 0.2-1.2 ALKALINE PHOSPHATASE 67 U/L 33-130 AST 12 U/L 10-35 ALT 13 U/L 6-29 CBC - 09/29/18 15:45 WHITE BLOOD CELL COUNT 10.4 Thousand/uL 3.8-10.8 RED BLOOD CELL COUNT 4.66 Million/uL 3.8 0-5.10 HEMOGLOBIN 14.5 g/dL 11.7-15.5 HEMATOCRIT 41.6 % 35.0-45.0 MCV 89.3 fL 80.0-100.0 MCH 31.1 pg 27.0-33.0 MCHC 34.9 g/dL 32.0-36.0 RDW 13.7 % 11.0-15.0 PLATELET COUNT 388 Thousand/uL 140-400 MPV 9.1 fL 7.5-12.5 ABSOLUTE NEUTROPHILS 6833 cells/uL 1500- 7800 ABSOLUTE LYMPHOCYTES 2694 cells/uL 850-3 900 ABSOLUTE MONOCYTES 801 cells/uL 200-950 ABSOLUTE EOSINOPHILS 10 cells/uL 15-500 ABSOLUTE BASOPHILS 62 cells/uL 0-200 NEUTROPHILS 65.7 % NRG LYMPHOCYTES 25.9 % NRG MONOCYTES 7.7 % NRG EOSINOPHILS 0.1 % NRG BASOPHILS 0.6 % NRG LIPASE - 09/29/18 15:45 LIPASE 26 U/L 7-60 AMYLASE - 09/29/18 15:45 AMYLASE 35 U/L 21-101 Complete blood count (CBC) with automate d white blood cell (WBC) differential - 10/27/18 10:50 Blood leukocytes automated count (number/volume) 8.8 10*3/uL 4.3-11.0 Blood erythrocytes automated count (number/volume) 4.80 10*6/uL 4.35-5.85 Venous blood hemoglobin measurement (mass/volume) 14.9 g/dL 11.5-16.0 Blood hematocrit (volume fraction) 41 % 35-52 Automated erythrocyte mean corpuscular volume 85 [ foz_us] 80-99 Automated erythrocyte mean corpuscular h emoglobin (mass per erythrocyte) 31 pg 25-34 Automated erythrocyte mean corpuscular h emoglobin concentration measurement (mass/volume) 37 g/dL 32-36 Automated erythrocyte distribution width ratio 13. 6 % 10.0- 14.5 Automated blood platelet count [...] 10*3 1.0-4.0 Blood monocytes automated count (number/volume) 0. 7 10*3 0.0-1.0 Automated eosinophil count 0.0 10*3/uL 0 .0-0.3 Automated blood basophil count (count/volume) 0.1 10*3/uL 0.0-0.1 PT panel in platelet poor plasma by coag ulation assay - 10/27/18 10:50 Prothrombin time (PT) in platelet poor plasma by coagu lation assay 13.5 s 12.2-14.7 INR in platelet poor plasma or blood by coagulation as say 1.0 0.8-1.4 Activated partial thromboplastin time (a PTT) in platelet poor plasma bycoagulation assay - 10/27/18 10:50 Activated partial thromboplastin time (a PTT) in platelet poor plasma bycoagulation assay 35 s 24-35 Comprehensive metabolic panel - 10/27/18 10:50 Serum or plasma sodium measurement (moles/volume) 134 mmol/L 135-145 Serum or plasma potassium measurement (moles/volume) 3.3 mmol/L 3.6-5.0 Serum or plasma chloride measurement (moles/volume) 95 mmol/L 98-107 Carbon dioxide 24 mmol/L 21-32 Serum or plasma anion gap determination (moles/volume) 15 mmol/L 5-14 Serum or plasma urea nitrogen measurement (mass/volume ) 19 mg/dL 7-18 Serum or plasma creatinine measurement (mass/volume) 0.95 mg/dL 0.60-1.30 Serum or plasma urea nitrogen/creatinine mass ratio 20 NRG Serum or plasma creatinine measurement w ith calculation of estimated glomerular filtration rate > NRG Serum or plasma glucose measurement (mass/volume) 108 mg/dL 70-105 Serum or plasma calcium measurement (mass/volume) 10.5 mg/dL 8.5-10.1 Serum or plasma total bilirubin measurement (mass/volu me) 1.0 mg/dL 0.1-1.0 Serum or plasma alkaline phosphatase sasha surement (enzymatic activity/volume) 73 U/L 40-136 Serum or plasma aspartate aminotransfera se measurement (enzymatic activity/volume) 15 U/L 5-34 Serum or plasma alanine aminotransferase measurement (enzymatic activity/volume) 19 U/L 0-55 Serum or plasma protein measurement (mass/volume) 7.9 g/dL 6.4-8.2 Serum or plasma albumin measurement (mass/volume) 4.6 g/dL 3.2-4.5 Magnesium - 10/27/18 10:50 Magnesium 2.0 mg/dL 1.8-2.4 Serum or plasma troponin i.cardiac measu rement (mass/volume) - 10/27/18 10:50 Serum or plasma troponin i.cardiac measurement (mass/v olume) < ng/mL <0.028 Myoglobin, serum - 10/27/18 10:50 Myoglobin, serum 47.6 ng/mL 10.0-92.0 Serum or plasma amylase measurement (enz ymatic activity/volume) - 10/27/18 10:50 Serum or plasma amylase measurement (enzymatic activit y/volume) 47 U/L 25-125 Lipase - 10/27/18 10:50 Lipase 22 U/L 8-78 Complete urinalysis with reflex to cultu re - 10/27/18 12:35 Urine color determination YELLOW NRG Urine clarity determination CLEAR NR G Urine pH measurement by test strip 5 5-9 Specific gravity of urine by test strip 1.010 1.016-1.022 Urine protein assay by test strip, semi-quantitative NEGATIVE NEGATIVE Urine glucose detection by automated test strip NE GATIVE NEGATIVE Erythrocytes detection in urine sediment by light micr oscopy NEGATIVE NEGATIVE Urine ketones detection by automated test strip NE GATIVE NEGATIVE Urine nitrite detection by test strip NEGATIVE NEGATIVE Urine total bilirubin detection by test strip NEGA TIVE NEGATIVE Urine urobilinogen measurement by automated test strip (mass/volume) NORMAL NORMAL Urine leukocyte esterase detection by dipstick 1+ NEGATIVE Automated urine sediment erythrocyte cou nt by microscopy (number/high power field) NONE NRG Automated urine sediment leukocyte count by microscopy (number/high power field) RARE NRG Bacteria detection in urine sediment by light microsco py NEGATIVE NRG Squamous epithelial cells detection in u rine sediment by light microscopy 5-10 NRG Crystals detection in urine sediment by light microsco py NONE NRG Casts detection in urine sediment by light microscopy NONE NRG Mucus detection in urine sediment by light microscopy NEGATIVE NRG Complete urinalysis with reflex to culture NO NRG Methicillin resistant Staphylococcus aur eus (MRSA) screening culture - 10/27/18 16:30 Methicillin resistant Staphylococcus aureus (MRSA) scr eening culture NEG NRG Complete blood count (CBC) with automate d white blood cell (WBC) differential - 10/28/18 06:27 Blood leukocytes automated count (number/volume) 7.1 10*3/uL 4.3-11.0 Blood erythrocytes automated count (number/volume) 4.32 10*6/uL 4.35-5.85 Venous blood hemoglobin measurement (mass/volume) 13.3 g/dL 11.5-16.0 Blood hematocrit (volume fraction) 37 % 35-52 Automated erythrocyte mean corpuscular volume 87 [ foz_us] 80-99 Automated erythrocyte mean corpuscular h emoglobin (mass per erythrocyte) 31 pg 25-34 Automated erythrocyte mean corpuscular h emoglobin concentration measurement (mass/volume) 36 g/dL 32-36 Automated erythrocyte distribution width ratio 13. 0 % 10.0- 14.5 Automated blood platelet count (count/volume) 349 10*3/uL 130-400 Automated blood platelet mean volume measurement 8.7 [foz_us] 7.4-10.4 Automated blood neutrophils/100 leukocytes 77 % 42-75 Automated blood lymphocytes/100 leukocytes 18 % 12-44 Blood monocytes/100 leukocytes 5 % 0-12 Automated blood eosinophils/100 leukocytes 0 % 0-10 Automated blood basophils/100 leukocytes 0 % 0-10 Blood neutrophils automated count (number/volume) 5.5 10*3 1.8-7.8 Blood lymphocytes automated count (number/volume) 1.3 10*3 1.0-4.0 Blood monocytes automated count (number/volume) 0. 4 10*3 0.0-1.0 Automated eosinophil count 0.0 10*3/uL 0 .0-0.3 Automated blood basophil count (count/volume) 0.0 10*3/uL 0.0-0.1 Comprehensive metabolic panel - 10/28/18 06:27 Serum or plasma sodium measurement (moles/volume) 136 mmol/L 135-145 Serum or plasma potassium measurement (moles/volume) 3.3 mmol/L 3.6-5.0 Serum or plasma chloride measurement (moles/volume) 103 mmol/L 98-107 Carbon dioxide 21 mmol/L 21-32 Serum or plasma anion gap determination (moles/volume) 12 mmol/L 5-14 Serum or plasma urea nitrogen measurement (mass/volume ) 12 mg/dL 7-18 Serum or plasma creatinine measurement (mass/volume) 0.68 mg/dL 0.60-1.30 Serum or plasma urea nitrogen/creatinine mass ratio 18 NRG Serum or plasma creatinine measurement w ith calculation of estimated glomerular filtration rate > NRG Serum or plasma glucose measurement (mass/volume) 109 mg/dL 70-105 Serum or plasma calcium measurement (mass/volume) 9.5 mg/dL 8.5-10.1 Serum or plasma total bilirubin measurement (mass/volu me) 0.6 mg/dL 0.1-1.0 Serum or plasma alkaline phosphatase sasha surement (enzymatic activity/volume) 59 U/L 40-136 Serum or plasma aspartate aminotransfera se measurement (enzymatic activity/volume) 11 U/L 5-34 Serum or plasma alanine aminotransferase measurement (enzymatic activity/volume) 17 U/L 0-55 Serum or plasma protein measurement (mass/volume) 6.9 g/dL 6.4-8.2 Serum or plasma albumin measurement (mass/volume) 3.9 g/dL 3.2-4.5 CALCIUM CORRECTED 9.6 mg/dL 8.5-10.1 Lipid 1996 panel - 10/28/18 06:27 Serum or plasma triglyceride measurement (mass/volume) 121 mg/dL <150 Serum or plasma cholesterol measurement (mass/volume) 256 mg/dL < 200 Serum or plasma cholesterol in HDL measurement (mass/v olume) 43 mg/dL 40-60 Cholesterol in LDL [mass/volume] in serum or plasma by direct assay 190 mg/dL 1-129 Serum or plasma cholesterol in VLDL measurement (mass/ volume) 24 mg/dL 5-40 CBC - 02/14/19 12:12 WHITE BLOOD CELL COUNT 6.3 Thousand/uL 3 .8-10.8 RED BLOOD CELL COUNT 4.67 Million/uL 3.8 0-5.10 HEMOGLOBIN 14.1 g/dL 11.7-15.5 HEMATOCRIT 42.0 % 35.0-45.0 MCV 89.9 fL 80.0-100.0 MCH 30.2 pg 27.0-33.0 MCHC 33.6 g/dL 32.0-36.0 RDW 13.3 % 11.0-15.0 PLATELET COUNT 369 Thousand/uL 140-400 MPV 8.6 fL 7.5-12.5 ABSOLUTE NEUTROPHILS 3597 cells/uL 1500- 7800 ABSOLUTE LYMPHOCYTES 1997 cells/uL 850-3 900 ABSOLUTE MONOCYTES 536 cells/uL 200-950 ABSOLUTE EOSINOPHILS 101 cells/uL 15-500 ABSOLUTE BASOPHILS 69 cells/uL 0-200 NEUTROPHILS 57.1 % NRG LYMPHOCYTES 31.7 % NRG MONOCYTES 8.5 % NRG EOSINOPHILS 1.6 % NRG BASOPHILS 1.1 % NRG SUREPATH PAP AND HPV mRNA E6/E7 - 00:00 CLINICAL INFORMATION: NRG LMP: NRG PREV. PAP: 2014 NRG PREV. 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: NRG HPV mRNA E6/E7, SUREPATH VIAL Not Detected NOT DETECTED COMMENT NRG Complete urinalysis with reflex to cultu re - 08/15/19 09:14 Urine color determination YELLOW NRG Urine clarity determination CLEAR NR G Urine pH measurement by test strip 6.5 5-9 Specific gravity of urine by test strip 1.015 1.016-1.022 Urine protein assay by test strip, semi-quantitative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
== END 2019-12-24 18:44 | disposition home or self-care (01) ==
LOC: EDUNIT# 17:12 → ER 17:13
DX: R10.2 Pelvic and perineal pain (principal); I10 Essential (primary) hypertension; K21.9 Gastro-esophageal reflux disease without esophagitis; K58.9 Irritable bowel syndrome, unspecified; F31.9 Bipolar disorder, unspecified; F41.9 Anxiety disorder, unspecified; Z88.0 Allergy status to penicillin; Z79.51 Long term (current) use of inhaled steroids
CPT/HCPCS: 36415; 74176; 80053; 81000; 85025; 87070; 87205; 87210; 87491; 87591

== ENCOUNTER 2020-04-01 09:30 | Emergency (ER) | payer SELFPAY ==
[~2020-04-01] VITALS: Ht 154 cm; Wt 95.0 kg
[~2020-04-01 09:30] MED LIST changes: +NAPR-1071 PO
[2020-04-01] MEDS ORDERED: ORPHENADRINE 60 MG/2 ML (NORFLEX) AMP (ED ONLY) IM ONE (10:30)
[2020-04-01] MEDS ORDERED: KETOROLAC 60 MG/2 ML VIAL IM ONE (10:30)
--- NOTE | 2020-04-01 11:45 | ED Back Pain ---
General Chief Complaint: Back Problems Stated Complaint: SEVERE BACK PAIN Nursing Triage Note: PT CO OF BACK PAIN MIDDLE BACK AREA. STATES HAS HAD FOR 5 DAYS. DENIES INJURY, TEARFUL RATES PAIN 03/22 Nursing Sepsis Screen: No Definite Risk Source of Information: Patient Exam Limitations: No Limitations History of Present Illness Date Seen by Provider: Apr 01, 2020 Time Seen by Provider: 10:35 Initial Comments Patient is a 54-year-old female who presents to the emergency department today with a chief complaint of low back pain. Patient states her pain has been ongoing for the last 5 days. Patient states that she has not injured herself or done anything strenuous. She has had back pain in the past but not this bad. Patient has been taking plrj-zru-kuuhsel ibuprofen 800 mg as well as occasional tramadol for the pain without any relief of symptoms. She denies any dysuria, urgency or frequency. Patient denies any fevers or chills. She denies any numbness, tingling or weakness to her lower extremities. Patient denies any incontinence. Patient states every time she moves she reproduces the pain. She is quite tearful on arrival and in mild to moderate distress secondary to pain. All other review of systems reviewed and negative except as stated above. Timing/Duration: 4-5 Days Severity: Moderate Pain/Injury Location: Back Radiation: Upper Legs Modifying Factors: Improves With Pain Medication Associated Symptoms: denies symptoms Allergies and Home Medications Allergies Coded Allergies: Penicillins (Unverified Allergy, Mild, hives, 01/28/09) Home Medications Fluticasone Propionate 9.9 Ml Decherd.susp, 2 SPRAY NS DAILY PRN for ALLERGIES, (Reported) Levothyroxine Sodium 50 Mcg Tablet, 50 MCG PO DAILY, (Reported) Lisinopril/Hydrochlorothiazide 1 Each Tablet, 1 TAB PO DAILY, (Reported) Loratadine 10 Mg Tablet, 10 MG PO DAILY, (Reported) Naproxen 500 Mg Tablet, 500 MG PO BID PRN for PAIN-MODERATE (5-7) Prescribed by: ADORE JACK on 12/24/19 1834 Omeprazole 20 Mg Capsule.dr, 40 MG PO DAILY Prescribed by: CATIE ROGERS on 10/28/18 1335 Ondansetron 4 Mg Tab.rapdis, 4 MG PO Q4H PRN for NAUSEA/VOMITING-1ST LINE, (Reported) Patient Home Medication List Home Medication List Reviewed: Yes Review of Systems Constitutional: no symptoms reported EENTM: no symptoms reported Respiratory: no symptoms reported Cardiovascular: no symptoms reported Gastrointestinal: no symptoms reported Genitourinary: no symptoms reported : No Musculoskeletal: back pain Skin: no symptoms reported Psychiatric/Neurological: No Symptoms Reported Past Llaexsm-Kxuhso-Zbofst Hx Patient Social History Alcohol Use: Denies Use Recreational Drug Use: Yes (THC) Smoking Status: Never a Smoker 2nd Hand Smoke Exposure: No Recent Foreign Travel: No Contact w/Someone Who Travel: No Recent Infectious Disease Expo: No Recent Hopitalizations: No Seasonal Allergies Seasonal Allergies: Yes Past Medical History Surgeries: Yes Breast, Gallbladder Respiratory: No Cardiac: Yes High Cholesterol, Hypertension Neurological: Yes Headaches /Migraines Reproductive Disorders: No Female Reproductive Disorders: Ovarian 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 Sexually Transmitted Disease: No Gastrointestinal: Yes Gastroesophageal Reflux, Chronic Constipation, Ulcer, Gall Bladder Disease, Irritable Bowel Musculoskeletal: Yes (CHRONIC GENERALIZED PAIN) Arthritis Endocrine: No Glaucoma Hearing Impairment: Denies Cancer: Yes Colon Psychosocial: Yes Sleep Difficulties, Anxiety, Bipolar, Depression Integumentary: No Blood Disorders: No Adverse Reaction/Blood Tranf: No Family Medical History Heart Disease, Cancer, Diabetes Physical Exam Vital Signs Vital Signs - First Documented 04/01/20 09:48 Temp 36.7 Pulse 95 Resp 18 B/P (MAP) 142/86 (104) Pulse Ox 97 Capillary Refill : Less Than 3 Seconds Height, Weight, BMI Height: 5'2.00" Weight: 214lbs. 0.0oz. 97.848660fu; 40.00 BMI Method:Stated General Appearance: No Apparent Distress, WD/WN, Anxious Neck: Full Range of Motion Cardiovascular: Regular Rate, Rhythm Respiratory: Lungs Clear, Normal Breath Sounds, No Accessory Muscle Use, No Respiratory Distress Gastrointestinal: Normal Bowel Sounds Back: Normal Inspection, Decreased Range of Motion, Other (Negative straight leg raise bilaterally, no reproducible midline back pain no percussive tenderness, the patient has paraspinous muscle tenderness in the upper lumbar spine bilaterally) Neurologic/Psychiatric: Alert, Oriented x3, No Motor/Sensory Deficits, Normal Mood/Affect, vegetable buncher II-XII Norm as Tested Skin: Normal Color, Warm/Dry Progress/Results/Core Measures Results/Orders My Orders Orders - CHANELL NEWELL MD Ketorolac Injection (Toradol Injection) (04/01/20 10:30) Orphenadrine Inj (Ed Only) (Norflex Inje (04/01/20 10:30) Medications Given in ED Current Medications Medications Dose Ordered Sig/Tamia Route Start Time Stop Time Status Last Admin Dose Admin Ketorolac Tromethamine 30 mg ONCE ONCE IM 04/01/20 10:30 04/01/20 10:31 DC 04/01/20 10:28 30 MG Orphenadrine Citrate 60 mg ONCE ONCE IM 04/01/20 10:30 04/01/20 10:31 DC 04/01/20 10:28 60 MG Vital Signs/I&O 04/01/20 09:48 Temp 36.7 Pulse 95 Resp 18 B/P (MAP) 142/86 (104) Pulse Ox 97 Blood Pressure Mean: 104 Progress Progress Note : Time: 11:55 Progress Note Patient achieved mild to moderate degree of relief after IM Toradol and Norflex. Patient has no clinical or objective findings concerning for acute cauda equina syndrome or any other acute pathology. She will be treated with some steroids for home as well as muscle relaxers. She is encouraged to use heat to the areas of discomfort. She is given good return precautions she verbalized understanding all questions are sought and answered and she is stable for discharge. Departure Impression Primary Impression: Back pain Qualified Codes: M54.5 - Low back pain Disposition: 01 HOME, SELF-CARE Condition: Stable Departure-Patient Inst. Decision time for Depature: 11:56 Referrals: KATELYN SHERIFF MD (PCP/Family) Primary Care Physician Patient Instructions: Low Back Pain (DC) Add. Discharge Instructions: Take the muscle relaxers as prescribed. Take the Medrol Dosepak as prescribed. You can take dirn-crv-xnwaudp Tylenol as well. Use gcnw-cax-tnpizfo heat patches as needed on the sore areas of your back. Come back to the emergency department for any worsening pain, urinary complaints, other emergent concerns. I have electronically transmitted your prescriptions to your [facility] pharmacy. All discharge instructions reviewed with patient and/or family. Voiced understa nding. Scripts Methylprednisolone (Methylprednisolone Dose Pack) 4 Mg Tablet 4 MG PO UD for 6 Days, #21 TAB FOLLOW DOSE PACK INSTRUCTIONS Prov: CHANELL NEWELL MD 04/01/20 Cyclobenzaprine HCl (Cyclobenzaprine HCl) 10 Mg Tablet 10 MG PO Q8H for 3 Days, #10 TAB Prov: CHANELL NEWELL MD 04/01/20 CHANELL NEWELL MD Apr 01, 2020 11:45
[2020-04-01] MEDS ORDERED: CYCL10TA9 PO (11:58)
[2020-04-01] MEDS ORDERED: METH4TAB11 PO (11:58)
[2020-04-01 12:07] VITALS: BP 136/72
[2020-04-02] MEDS ORDERED: NOREPINEPHRINE 4 MG/250 ML 0 ML IV ONE (10:37)
== END 2020-04-01 12:07 | disposition home or self-care (01) ==
LOC: EDUNIT# 09:30 → ER 09:31
DX: M54.5 Low back pain (principal); F41.9 Anxiety disorder, unspecified; I10 Essential (primary) hypertension; K21.9 Gastro-esophageal reflux disease without esophagitis; Z82.49 Family history of ischemic heart disease and other diseases of the circulatory system; Z80.9 Family history of malignant neoplasm, unspecified; Z83.3 Family history of diabetes mellitus; Z88.0 Allergy status to penicillin; Z85.038 Personal history of other malignant neoplasm of large intestine
CPT/HCPCS: 99284

== ENCOUNTER → 2020-06-20 | Outpatient (CLI) | payer SELFPAY ==
[~2020-06-20] VITALS: Ht 157.5 cm; Wt 106.8 kg
[~2020-06-20] MED LIST changes: +AMLO-251; -AMLO10TA7; +LIDOCAINE 1% INJ 20 ML 20 ML VIAL INJ ONE; +LIDOCAINE 1% INJ 20 ML 20 ML VIAL ONE; +METH4TAB11 PO
--- NOTE | 2020-06-20 10:27 | Diagnostic Imaging Report ---
INDICATION: Bilateral thyroid nodules. PROCEDURE: The patient presents for bilateral thyroid fine needle aspiration using ultrasound guidance. The patient was brought to the procedure room and placed on the table in the supine position. Ultrasound imaging of the right neck was performed to evaluate appropriate entry site. The right neck was then prepped and draped in usual sterile fashion. Small amount of 1% lidocaine was utilized for local anesthesia. A total of 3 passes were made into the hypoechoic, peripherally calcified mass in the posterior right lobe of the thyroid utilizing 25-gauge needles and fine-needle aspiration technique. Next, ultrasound imaging of the left neck was performed to evaluate appropriate entry site. The left neck was prepped and draped in the usual sterile fashion. A small amount of 1% lidocaine was utilized for local anesthesia. A total of 4 passes were made into the dominant slightly hyperechoic mass lower pole left lobe of the thyroid utilizing 25-gauge needles and fine-needle aspiration technique. A single pass was made with a Rotex needle and a Rotex biopsy was performed. [place] were removed and hemostasis was obtained using manual compression. Patient tolerated the procedure well and left the department in stable condition. IMPRESSION: Successful ultrasound-guided fine-needle aspiration and Rotex biopsy of right and left thyroid nodules, as described. Pathology results are currently pending. Dictated by: Dictated on workstation # [id number]
== END ==
LOC: RAD 08:30
PROVIDERS: ATTEND Family Medicine
DX: E04.2 Nontoxic multinodular goiter (principal)

== ENCOUNTER 2021-10-15 09:22 | Outpatient (CLI) | payer SELFPAY ==
[~2021-10-15] VITALS: Ht 154.9 cm; Wt 113.4 kg
[~2021-10-15 09:22] MED LIST changes: +CYCL10TA25 PO; -LIDOCAINE 1% INJ 20 ML 20 ML VIAL INJ ONE; -LIDOCAINE 1% INJ 20 ML 20 ML VIAL ONE; -LISI1TAB26 PO; +LISI1TAB48 PO; -SULF1TAB35 PO
[2021-10-15] MEDS ORDERED: diphenhydrAMINE 50 MG/ML INJ (BENADRYL) IV PRN (09:30)
[2021-10-15] MEDS ORDERED: EPINEPHrine INJECTION 1 MG/ML AMP IM PRN (09:30)
[2021-10-15] MEDS ORDERED: ONDANSETRON 4 MG/2 ML (SDV) Z0FRAN IV PRN (09:30)
[2021-10-15] MEDS ORDERED: ACETAMINOPHEN 500 MG TAB (TYLENOL) PO PRN (09:30)
[2021-10-15] MEDS ORDERED: BEBTELOVIMAB 175 MG/2 ML VIAL IV ONE (09:30)
[2021-10-15 09:33] VITALS: BP 135/85
[2021-10-15 10:22] VITALS: BP 117/73
== END 2021-10-15 10:30 | disposition hospice, home (50) ==
LOC: INFUSION 09:22
PROVIDERS: ATTEND Nurse Practitioner Community Health
DX: U07.1 COVID-19 (principal)